=== PATIENT | male | born 1965 | race Caucasian/White ===

== ENCOUNTER 2017-11-10 14:47 | Emergency (ER) | payer MEDICARE, MEDICAID, SELFPAY ==
[2017-11-10 14:48] VITALS: BP 128/88; PULSE 71; RESP 18; TEMP 36.8; O2SAT 95; BMI 34.9
--- NOTE | 2017-11-10 14:55 | RAD_ITS ---
STUDY: X-RAY - LEFT KNEE REASON FOR EXAM: Male, 52 years old. Pain following a fall. TECHNIQUE: 4 view(s) of the knee. COMPARISON: None. FINDINGS: Normal visualized distal femur. Normal visualized proximal tibia and fibula. Normal proximal tibiofibular articulation. Normal medial femorotibial compartment. Normal lateral femorotibial compartment. Normal patellofemoral articulation. The soft tissue structures are unremarkable. RAD/Knee 4 or More Views IMPRESSION: Normal x-ray examination of the knee. Electronically Signed: Ronnell Garcia MD at 15:41 EDT Tel [phone], Service support ,
--- NOTE | 2017-11-10 16:13 | ED.VISSUMM ---
- ER Visit Summary Date of Service: 11/10/17 Chief Complaint: Knee injury History of Present Illness: The patient is a 52 M who states that last night he slipped on some cardboard causing a twisting of the left knee and doing a pseudo-split. Notes painful range of motion and painful walking. He has a walker at home. Prior knee injury Physical Examination: Afebrile vital signs are stable The left knee is diffusely tender to palpation. There is no swelling. There is no effusion. Extensor mechanism is intact. There is no pain on ligamentous stressing and no laxity when compared to the right. Test Results: Knee x-rays done through protocol were negative for fracture Emergency Department Course and Treatment: The patient will use an Dany wrap Motrin and ice. He will use the walker for support. Follow-up with his doctor if not improved in 10-14 days. I informed him that bone ward he appears stable ligaments are probably strained but I do not appreciate a tear. If he is not improving he will need further evaluation for possible ligamentous/meniscus tear. Impression: 1. Left knee sprain This note was generated with [employer] dictation software. It may contain incorrect words, spelling, and punctuation that were not noted in review of the chart prior to signing ED Disposition - Plan for ED Patient: Disposition: Home or Assisted Living Chief Complaint: Lower Extremity Injury Instructions: ED Sprain Knee Prescriptions: Ibuprofen [Motrin] 800 mg PO TID PRN PRN #20 tab PRN Reason: Pain Referrals: Sai Cobian MD [Primary Care Provider] - 10-14 Days if not better
--- NOTE | 2017-11-10 16:16 | ED.DCSUM_ITS ---
- ER Visit Summary Date of Service: 11/10/17 Chief Complaint: Knee injury History of Present Illness: The patient is a 52 M who states that last night he slipped on some cardboard causing a twisting of the left knee and doing a pseudo -split. Notes painful range of motion and painful walking. He has a walker at home. Prior knee injury Physical Examination: Afebrile vital signs are stable The left knee is diffusely tender to palpation. There is no swelling. There is no effusion. Extensor mechanism is intact. There is no pain on ligamentous stressing and no laxity when compared to the right. Test Results: Knee x-rays done through protocol were negative for fracture Emergency Department Course and Treatment: The patient will use an Dany wrap Motrin and ice. He will use the walker for support. Follow-up with his doctor if not improved in 10-14 days. I informed him that bone ward he appears stable ligaments are probably strained but I do not appreciate a tear. If he is not improving he will need further evaluation for possible ligamentous/meniscus tear. Impression: 1. Left knee sprain This note was generated with [employer] dictation software. It may contain incorrect words, spelling, and punctuation that were not noted in review of the chart prior to signing ED Disposition - Plan for ED Patient: Disposition: Home or Assisted Living Chief Complaint: Lower Extremity Injury Instructions: ED Sprain Knee Prescriptions: Ibuprofen [Motrin] 800 mg PO TID PRN PRN #20 tab PRN Reason: Pain Referrals: Sai Cobian MD [Primary Care Provider] - 10-14 Days if not better
--- NOTE | 2017-11-11 01:11 | ED.RN ---
see patient down time charting from [phone]
== END 2017-11-10 18:00 | disposition home or self-care (01) ==
LOC: ED 16:43
PROVIDERS: Emergency Provider Emergency Medicine; Family Provider Family Medicine; PCP Family Medicine
DX: S83.92XA Sprain of unspecified site of left knee, initial encounter (principal); W01.0XXA Fall on same level from slipping, tripping and stumbling without subsequent striking against object, initial encounter; Y93.9 Activity, unspecified; Y92.89 Other specified places as the place of occurrence of the external cause; Y99.9 Unspecified external cause status; K21.9 Gastro-esophageal reflux disease without esophagitis
CPT/HCPCS: 73564; 99283

== ENCOUNTER 2017-11-20 14:37 | Emergency (ER) | payer MEDICARE, SELFPAY ==
[2017-11-20 14:38] VITALS: BP 134/100; PULSE 79; RESP 18; TEMP 36.9; O2SAT 95; BMI 34.9
--- NOTE | 2017-11-20 15:17 | MRI_ITS ---
STUDY: MRI LUMBAR SPINE WITHOUT CONTRAST REASON FOR EXAM: Male, 52 years old. X5 days TECHNIQUE: Standardized fat and water weighted pulse sequences were obtained in the sagittal and axial planes. COMPARISON: None FINDINGS: T1 and T2 lengthening anterior inferior corner of L2 and L3 vertebral bodies. T12-L1: Normal endplates. Normal disc height, hydration and morphology. Normal bilateral facet joints. Normal central canal and bilateral lateral recesses. Normal bilateral intervertebral neural foramina. Normal lumbar lordosis. There is no substantial scoliosis. Normal conus medullaris that terminates at the L1 level. L1-2: Normal endplates. Normal disc height, hydration and morphology. Normal bilateral facet joints. Normal central canal and bilateral lateral recesses. Normal bilateral intervertebral neural foramina. L2-3: Moderate circumferential disc marginal osteophyte causing moderate neural foraminal narrowing bilaterally. Central canal patent. L3-4: Moderate narrowing of the neural foramina bilaterally, left greater than right due to a circumferential disc marginal osteophyte and possible ossification of the posterior longitudinal ligament. L4-5: Moderate narrowing of the neural foramina bilaterally due to Moderate broad-based posterior disc marginal osteophyte and possible ossification of posterior longitudinal ligament. Posterior epidural lipomatosis. Moderate concentric trefoil type narrowing of the thecal sac. L5-S1: Normal endplates. Normal disc height, hydration and morphology. Normal bilateral facet joints. Normal central canal and bilateral lateral recesses. Normal bilateral intervertebral neural foramina. There appears to be sacralization of L5. Normal visualized sacral ala. Normal visualized paraspinous soft tissue structures. IMPRESSION: Possible transitional vertebrae. Nomenclature is for the purposes of this report only and should be confirmed with complete thoracolumbar spine films prior to any surgical intervention. Probable reactive spondylosis or bone bruise L2 and L3 vertebral bodies. Multilevel central and lateral spinal stenosis and multilevel broad-based disc protrusion. Possible ossification posterior longitudinal ligament. Electronically Signed: Sanjay Berman MD at 18:51 EDT , Service support , MRI/Spine Lumbar (Routine)
[2017-11-20] MEDS: Ketorolac 15 MG/ML Vial IV (16:05)
[2017-11-20] MEDS: proMETHazine 25 MG/ML Syringe 6.25 MG IV (16:05)
[2017-11-20] MEDS: HYDROmorphone 1 MG/ML Syringe IV (16:05)
[2017-11-20 16:11] VITALS: BP 134/85; PULSE 70; RESP 18; O2SAT 96
[2017-11-20 16:29] LABS: Absolute Lymphocyte Count 1.96 X10^3/ul (0.83-4.51); Absolute Neutrophil Count 6.2 X10^3/uL (2.0-7.7); Basophil# 0.02 X10^3/uL; Basophil% 0.2 % (0-1); Eosinophil# 0.14 X10^3/uL; Eosinophils% 1.6 % (0-5); Hematocrit 45.7 % (40-54); Hemoglobin 15.1 g/dl (13.0-16.5); Lymphocyte # 1.96 X10^3/ul (4.0); Lymphocyte % 21.7 % (19-41); Mean Corpuscular Hgb 31.8 pg (27.0-32.0); Mean Corpuscular Volume 96.2 fL (80-94); Mean Platelet Vol. 10.9 fl (6.2-12.0); Monocyte# 0.69 X10^3/uL; Monocyte% 7.6 % (0-10); Neutrophil # 6.18 X10^3/uL (2.7-7.7); Neutrophil % 68.5 % (47-70); Platelet Count 233 K/mm3 (150-450); RBC Distribution Width CV 13.3 % (11.6-14.6); RBC Distribution Width SD 47.1 fl (35.1-43.9); Red Blood Count 4.75 M/mm3 (4.6-6.2)
[2017-11-20 16:30] LABS: Anion Gap 5 (5-15); BUN 9 mg/dL (7-18); BUN/Creat Ratio 8.5 RATIO (10-20); Chloride 105 mmol/L (98-107); Creatinine, Serum 1.06 mg/dL (0.70-1.30); EST Glomerular Filtration Rate 79 mL/min (>60); Est Glom Filt Rate - Afr Amer 95 mL/min (>60); Estimated Creatinine Clearance 72.52 ml/min; Glucose 93 mg/dL (74-106); Potassium 4.5 mmol/L (3.5-5.1); Sodium Level 137 mmol/L (136-145)
[2017-11-20 16:31] LABS: POSITIVE COUNT NO; POSITIVE DIFFERENTIAL NO; POSITIVE MORPHOLOGY NO
--- NOTE | 2017-11-20 17:05 | ED.VISSUMM ---
- ER Visit Summary Date of Service: 11/20/17 Chief Complaint: [Back pain] History of Present Illness: The patient is a 52 M [presents to the emergency department complaint of low back pain that started 4 days ago. Patient states that he was moving some boxes and doing cleaning where he was bending over quite a bit. Patient denies any falls or direct trauma. Patient now with severe low back pain radiating into his right leg into the left anterior thigh. Patient has never had discomfort like this before. Patient denies any loss of bowel or bladder function. Complains of pain in the legs but no significant weakness. Patient does not have history of chronic back pain. Patient denies urinary symptoms. He denies fever. He denies any illicit drug use.] Physical Examination: [HEENT-PERRLA, EOMI. Cranial nerves II through XII grossly intact. TMs clear. Mucous membranes moist. No adenopathy. Cardiovascular-regular rate and rhythm without murmur or ectopy Lungs-clear to auscultation, chest wall stable without crepitus or subcu emphysema Abdomen-normoactive bowel sounds, soft, nontender, no rebound or rigidity, no peritoneal signs. Back exam-patient has diffuse tenderness over the lumbar spine and paraspinal musculature. Patient required significant assistance to even sit up in bed. Deep tendon reflexes are plus 1 out of 4 bilaterally at the patella and Achilles. Patient has normal 5 extension. Patient does have a positive straight leg raise on the left with pain at 20?. Extremities-intact ?4, normal range of motion, normal pulses, atraumatic] Test Results: [CBC with differential obtained was normal. Chemistries were normal. MRI of the lumbar spine ordered and pending] Emergency Department Course and Treatment: [Patient was medicated with Dilaudid, Toradol, and Zofran.] Treatment Plan: [Pending MRI results and final disposition as patient care turned over to evening physician awaiting MRI results.] Disposition: [Pending] Impression: [Back pain] This note was generated with [employer] dictation software. It may contain incorrect words, spelling, and punctuation that were not noted in review of the chart prior to signing ED Disposition - Plan for ED Patient: Chief Complaint: Back Referrals: Sai Cobian MD [Primary Care Provider] -
--- NOTE | 2017-11-20 19:34 | ED.VISSUMM ---
- ER Visit Summary Date of Service: 11/20/17 Chief Complaint: [] History of Present Illness: The patient is a 52 M [] Physical Examination: [] Test Results: [] Emergency Department Course and Treatment: [] Treatment Plan: [] Disposition: [] Impression: [] This note was generated with [employer] dictation software. It may contain incorrect words, spelling, and punctuation that were not noted in review of the chart prior to signing ED Disposition - Plan for ED Patient: Disposition: Home or Assisted Living Chief Complaint: Back Diagnosis: Spinal stenosis Instructions: ED Exercises Lumbar Muscles Prescriptions: Oxycodone HCl/Acetaminophen [Percocet 5/325] 1 tab PO Q6H PRN PRN 3 Days #12 tab PRN Reason: Pain Referrals: Sai Cobian MD [Primary Care Provider] - 3-5 Days
[2017-11-20 19:55] VITALS: BP 132/82; PULSE 80; RESP 18; O2SAT 100
== END 2017-11-20 19:56 | disposition home or self-care (01) ==
PROVIDERS: Emergency Medicine; Emergency Provider Emergency Medicine; Family Provider Family Medicine; PCP Family Medicine
DX: M48.00 Spinal stenosis, site unspecified (principal); M54.9 Dorsalgia, unspecified; E03.9 Hypothyroidism, unspecified; Z72.0 Tobacco use; F32.9 Major depressive disorder, single episode, unspecified; F41.9 Anxiety disorder, unspecified
CPT/HCPCS: 72148; 80048; 85025; 96374; 96375; 99283

== ENCOUNTER 2017-11-21 23:05 | Inpatient (IN) | payer MEDICARE, MEDICAID, SELFPAY ==
[2017-11-21 23:06] VITALS: BP 153/97; PULSE 88; RESP 19; TEMP 37.1; O2SAT 97; BMI 34.9
--- NOTE | 2017-11-21 23:21 | ED.RN ---
PT REPORTED HE FEELS THE URGE TO URINATE AND WHEN AMBULATING TO BATHROOM, PT BECOMES INCONTINENT.
[2017-11-22] VITALS (7 sets, daily range): BP systolic 121–138; BP diastolic 66–87; PULSE 59–81; RESP 14–28; TEMP 36.6–37.2; O2SAT 95–98; BMI 35.8
[2017-11-22] MEDS: morphine 8 MG/ML Syringe IM (00:06)
--- NOTE | 2017-11-22 00:40 | ED.VISSUMM ---
- ER Visit Summary Date of Service: 11/22/17 Chief Complaint: Back pain History of Present Illness: The patient is a 52 M presenting for evaluation secondary to back pain. Patient does have a prior history of back pain, but states that over the course of the last 6 days he has had significant lower back pain. Patient states that it was associated potentially with lifting at work, and also states that he had a leg twisting injury and fall a couple of weeks ago. Patient states that the pain is in his lower back and now radiates down both of his legs. He states that it goes down the anterior portion of the legs to approximately the level of the knee. He states that he now is having significant difficulty with even ambulation. Patient states that he has been having both urinary and fecal urgency, and occasionally when he is trying to get to the bathroom he loses control mildly of his bladder. He denies that he has been having any sort of fevers or weight loss or night sweats. He denies any injection drug use. Patient was seen in this emergency department yesterday, had an MRI of his back that showed central spinal stenosis, he was treated with pain medication and felt better and was discharged with a course of Percocet. Patient states that today however he has had episodes where he was unable to even get up off of the toilet. He lives by himself with his son who is about to leave for the [employer] for a week, the patient states that he feels he will be unable to care for himself. Physical Examination: Vitals: Within normal limits General: Well-nourished well-developed no acute distress Head: Normocephalic atraumatic ENT: Moist mucous membranes Neck: Supple no JVD Cardiovascular: Heart regular rate and rhythm no murmurs Respiratory: Respirations nondistressed, lung sounds clear to auscultation bilaterally Abdominal: Soft, nontender, nondistended, normal bowel sounds, no evidence of abdominal masses or pulsatile mass Back: Normal to inspection, both midline and paraspinal tenderness to palpation in the back, straight leg raise is positive at 15? on the left Extremities: Nontender, nonedematous, 2+ radial and PT pulses bilaterally symmetric Skin: Normal color no rash Neuro: 5/5 strength hip flexion, knee flexion, knee extension, dorsiflexion, plantarflexion, EHL. Sensation intact over all dermatomes of the lower extremities bilaterally, 2+ patellar and Achilles reflexes bilaterally symmetric, negative clonus bilaterally, 1+ Achilles reflexes bilaterally Test Results: MRI was reviewed from yesterday and shows central spinal stenosis Emergency Department Course and Treatment: Patient presented secondary to intractable back pain. He was given morphine in the emergency department. I reviewed the patient's records and his MRI, the patient at this point has failed outpatient treatment. He is nonambulatory, and will not have any help at home. He does have central stenosis which can be contributing to his discomfort. I believe he requires admission for rehab potential placement. Patient was consenting to this. Patient will be admitted under the hospitalist. Disposition: Admission Impression: 1. Intractable back pain 2. Spinal stenosis 3. Failed outpatient treatment 4. Declining functional status This note was generated with [email or web address] dictation software. It may contain incorrect words, spelling, and punctuation that were not noted in review of the chart prior to signing ED Disposition - Plan for ED Patient: Chief Complaint: Back Referrals: Sai Cobian MD [Primary Care Provider] -
--- NOTE | 2017-11-22 00:44 | ED.DCSUM_ITS ---
- ER Visit Summary Date of Service: 11/22/17 Chief Complaint: Back pain History of Present Illness: The patient is a 52 M presenting for evaluation secondary to back pain. Patient does have a prior history of back pain, but states that over the course of the last 6 days he has had significant lower back pain. Patient states that it was associated potentially with lifting at work, and also states that he had a leg twisting injury and fall a couple of weeks ago. Patient states that the pain is in his lower back and now radiates down both of his legs. He states that it goes down the anterior portion of the legs to approximately the level of the knee. He states that he now is having significant difficulty with even ambulation. Patient states that he has been having both urinary and fecal urgency, and occasionally when he is trying to get to the bathroom he loses control mildly of his bladder. He denies that he has been having any sort of fevers or weight loss or night sweats. He denies any injection drug use. Patient was seen in this emergency department yesterday , had an MRI of his back that showed central spinal stenosis, he was treated with pain medication and felt better and was discharged with a course of Percocet. Patient states that today however he has had episodes where he was unable to even get up off of the toilet. He lives by himself with his son who is about to leave for the [employer] for a week, the patient states that he feels he will be unable to care for himself. Physical Examination: Vitals: Within normal limits General: Well-nourished well-developed no acute distress Head: Normocephalic atraumatic ENT: Moist mucous membranes Neck: Supple no JVD Cardiovascular: Heart regular rate and rhythm no murmurs Respiratory: Respirations nondistressed, lung sounds clear to auscultation bilaterally Abdominal: Soft, nontender, nondistended, normal bowel sounds, no evidence of abdominal masses or pulsatile mass Back: Normal to inspection, both midline and paraspinal tenderness to palpation in the back, straight leg raise is positive at 15? on the left Extremities: Nontender, nonedematous, 2+ radial and PT pulses bilaterally symmetric Skin: Normal color no rash Neuro: 5/5 strength hip flexion, knee flexion, knee extension, dorsiflexion, plantarflexion, EHL. Sensation intact over all dermatomes of the lower extremities bilaterally, 2+ patellar and Achilles reflexes bilaterally symmetric , negative clonus bilaterally, 1+ Achilles reflexes bilaterally Test Results: MRI was reviewed from yesterday and shows central spinal stenosis Emergency Department Course and Treatment: Patient presented secondary to intractable back pain. He was given morphine in the emergency department. I reviewed the patient's records and his MRI, the patient at this point has failed outpatient treatment. He is nonambulatory, and will not have any help at home. He does have central stenosis which can be contributing to his discomfort. I believe he requires admission for rehab potential placement. Patient was consenting to this. Patient will be admitted under the hospitalist. Disposition: Admission Impression: 1. Intractable back pain 2. Spinal stenosis 3. Failed outpatient treatment 4. Declining functional status This note was generated with [employer] dictation software. It may contain incorrect words, spelling, and punctuation that were not noted in review of the chart prior to signing ED Disposition - Plan for ED Patient: Chief Complaint: Back Referrals: Sai Cobian MD [Primary Care Provider] -
--- NOTE | 2017-11-22 01:50 | HP.PCM_ITS ---
Problem List (1) Multilevel spinal canal stenosis Status: Acute (2) Intractable low back pain Status: Acute (3) Hypothyroidism Status: Chronic (4) Anxiety Status: Chronic (5) Depression Status: Chronic History of Present Illness Date of Admission: 11/22/17 Chief Complaint: Low back pain. The patient is a 52 year old M with past medical history as mentioned above presented to the medicine because of low back pain. His back pain started around 1 week ago after he started backing his stuff at home for moving. The pain is in the lower back, in the center of the back and goes on both sides, spasm-like pain, 10 out of 10 in severity, radiates down to both thighs, aggravated by movement as well as taking a deep breath, somewhat relieved when he stays still and without other associated symptoms. He mentioned that the pain has been constant and has been worsening progressively over the last 3-4 days. He denied focal leg weakness, numbness or tingling. He denied bowel or bladder incontinence. He denied fall or trauma. Yesterday, he came to the emergency room for evaluation, MRI performed and that revealed moderate narrowing of the neural foramina bilaterally at L3-L4 and L4-L5 as well as probable reactive spondylosis or bone bruises on L2 on L3 to vertebral bodies. He was discharged home on Percocet but he came back last night because of intractable pain, difficulty ambulating and he was not able even to move. In the emergency room, his vital signs were stable. His routine blood work was performed yesterday and was unremarkable. MRI lumbar spine reviewed as below. He is being admitted for intractable low back pain due to multilevel spinal canal stenosis and reactive spondylosis with debility and functional decline. Past Medical History Past Medical History (Chronic Problems): Chronic Problems Hypothyroidism (Chronic) Anxiety (Chronic) Depression (Chronic) Allergies No Known Allergies Allergy (Verified 11/21/17 23:06) Home Medications: Ambulatory Orders Medication Instructions Recorded Omeprazole [Prilosec] 20 mg PO DAILY 03/29/16 Citalopram [Celexa] 40 mg PO DAILY 05/21/16 Levothyroxine [Synthroid] 175 mcg PO DAILY 05/21/16 Lorazepam [Ativan] 1 mg PO TID PRN PRN 05/21/16 Oxycodone HCl/Acetaminophen 1 tab PO Q6H PRN PRN 3 Days #12 tab 11/20/17 [Percocet 5/325] Surgical History: tonsillectomy Psychiatric History: Anxiety, Depression Smoking Status: Current every day smoker Alcohol: Occasional Drugs: None - *Family History Maternal History Items: No pertinent history Paternal History Items: No pertinent history Review of Systems Constitutional: Denies: Anorexia, Chills, Fever, Weakness Eyes: Denies: Blurred vision, Double vision, Drainage, Redness HEENT: Denies: Difficulty Hearing, Ear Pain, Eye Pain, Nasal Congestion, Sore Throat Cardiovascular: Denies: Chest Pain, Chest Pressure, Chest Tightness, Light Headedness, Palpitations, Syncope Respiratory: Denies: Cough, Hemoptysis, Pleuritic Pain, Shortness of Breath, Sputum production, Wheezing Gastrointestinal: Denies: Abdominal Pain, Constipation, Diarrhea, Nausea, Vomiting Genitourinary: Denies: Dysuria, Frequency, Hematuria Musculoskeletal: Reports: Back Pain. Denies: Arm Pain, Foot Pain, Hand Pain Skin: Denies: Dryness, Rash Neurological: Denies: Balance problems, Double vision, Change in Speech, Slurred speech, Headaches, Incoordination, Numbness Psychiatric: Reports: Anxiety, Depression Endocrine: Denies: Change in Body Habitus, Polydipsia VTE Information - Inpt Only VTE Present on Admission: No VTE Mechan Device Prophylaxis: None VTE Pharm Prophylaxis ordered?: Yes Patient Problems: Active and Suspected Problems Multilevel spinal canal stenosis (Acute) Intractable low back pain (Acute) - Physical Exam General: Alert, Oriented x3, Cooperative, No apparent distress HEENT: Atraumatic, PERRLA, EOMI Oral: Moist Mucosa, No Gingival or Mucosal Lesions/ Ulcerations Neck: Supple, No JVD, Negative Carotid Bruits, Trachea Midline, Thyroid Normal Size and Texture Lungs: Clear to auscultation, Normal air movement, No rhonchi, No wheeze, No rales Cardiovascular: Regular rate, Regular Rhythm, Normal S1, Normal S2, No murmurs Abdomen: Bowel Sounds Present, Soft, Non Tender, Non-Distended, No Hepato- splenomegaly, Obese Extremities: No clubbing, No cyanosis, No edema Skin: No rashes, No breakdown Lymphatic: No Cervical, Supraclavicular, or Inguinal Adenopathy Neurological: Cranial nerves II-XII grossly intact, Motor Exam 5/5 strength throughout, Sensory exam intact to light touch and pain Psych/Mental Status: Normal Affect, Appropriate, Alert and oriented to time, place, person, mood and affect Vital Signs Temp Pulse Resp BP Pulse Ox 98.8 F 81 16 138/87 H 96 11/21/17 23:06 11/22/17 00:31 11/22/17 00:31 11/22/17 00:31 11/22/17 00:31 Oxygen Delivery Method Room Air Weight: 210 lb Body Mass Index (BMI) 34.9 MRI of the lumbar spine: This was done on November 20, 2017. IMPRESSION: Possible transitional vertebrae. Nomenclature is for the purposes of this report only and should be confirmed with complete thoracolumbar spine films prior to any surgical intervention. Probable reactive spondylosis or bone bruise L2 and L3 vertebral bodies. Multilevel central and lateral spinal stenosis and multilevel broad-based disc protrusion. Possible ossification posterior longitudinal ligament. Assessment/Plan Active and Suspected Problems Multilevel spinal canal stenosis (Acute) Intractable low back pain (Acute) This is a 52 years old male patient presented to the emergency room for the second time after he came in yesterday for intractable low back pain, found to have multilevel spinal canal stenosis as well as degenerative disease and reactive spondylosis with failure of outpatient therapy and he is being admitted for pain control and physical therapy. #1 acute intractable low back pain: MRI findings as noted above. Patient was discharged from the ER yesterday and he came back last night because of intractable low back pain and difficulty ambulating. His routine blood work from November 21, 2079 reviewed and was unremarkable. He has no evidence of focal deficit on lower extremities. [facility], ambulate as tolerated, IV hydromorphone as needed for pain, Flexeril 3 times daily, OxyIR as needed for pain, Tylenol as needed, IV Decadron, PT OT evaluation and treatment. #2 physical debility/functional decline: Patient mentioned that he is not able to ambulate, having difficulties even to stand up from toilet. He lives alone. Plan for PT OT evaluation and treatment, patient may need placement to nursing home facility. #3 hypothyroidism: Continue levothyroxine. #4 anxiety/depression: Continue Celexa and Ativan. #5 GERD: Continue PPI. #6 DVT prophylaxis: Subcu Lovenox. This note was generated with Dragon dictation software. It may contain incorrect words, spelling, and punctuation that were not noted in checking the note before signing. Code Visit Inpatient E&M: 80848 Init Hosp L3
[2017-11-22] MEDS: oxyCODONE 5 MG Tablet PO ×4 (03:10→22:39)
[2017-11-22] MEDS: 0.9% NaCl Peripheral Flush Adult/Peds IV ×2 (03:47→05:11)
[2017-11-22] MEDS: Enoxaparin 40 MG/0.4 ML Syringe SC (05:10)
[2017-11-22] MEDS: Levothyroxine 175 MCG Tablet PO (05:10)
[2017-11-22 06:01] LABS: Absolute Lymphocyte Count 1.26 X10^3/ul (0.83-4.51); Absolute Neutrophil Count 8.6 X10^3/uL (2.0-7.7); Basophil# 0.02 X10^3/uL; Basophil% 0.2 % (0-1); Eosinophil# 0.08 X10^3/uL; Eosinophils% 0.7 % (0-5); Hematocrit 44.9 % (40-54); Hemoglobin 14.7 g/dl (13.0-16.5); Lymphocyte # 1.26 X10^3/ul (4.0); Lymphocyte % 11.7 % (19-41); Mean Corp Hgb Conc 32.7 g/gl (32-36); Mean Corpuscular Hgb 31.5 pg (27.0-32.0); Mean Corpuscular Volume 96.4 fL (80-94); Mean Platelet Vol. 10.8 fl (6.2-12.0); Monocyte# 0.76 X10^3/uL; Monocyte% 7.1 % (0-10); Neutrophil # 8.59 X10^3/uL (2.7-7.7); Neutrophil % 80.1 % (47-70); Platelet Count 222 K/mm3 (150-450); RBC Distribution Width CV 13.4 % (11.6-14.6); RBC Distribution Width SD 46.7 fl (35.1-43.9); Red Blood Count 4.66 M/mm3 (4.6-6.2); White Blood Count 10.7 K/mm3 (4.4-11.0)
[2017-11-22 06:10] LABS: POSITIVE COUNT NO; POSITIVE DIFFERENTIAL NO; POSITIVE MORPHOLOGY NO
[2017-11-22 06:30] LABS: Anion Gap 7 (5-15); BUN 12 mg/dL (7-18); BUN/Creat Ratio 10.2 RATIO (10-20); Calcium,Total 8.9 mg/dL (8.5-10.1); Chloride 100 mmol/L (98-107); Creatinine, Serum 1.18 mg/dL (0.70-1.30); EST Glomerular Filtration Rate 69 mL/min (>60); Est Glom Filt Rate - Afr Amer 84 mL/min (>60); Estimated Creatinine Clearance 65.15 ml/min; Glucose 100 mg/dL (74-106); Potassium 4.1 mmol/L (3.5-5.1); Sodium Level 135 mmol/L (136-145)
[2017-11-22] MEDS: Citalopram 40 MG TABLET PO (09:32)
[2017-11-22] MEDS: Senna Tablet 1 TABLET PO ×2 (09:32→21:00)
[2017-11-22] MEDS: Pantoprazole Sodium 20 MG Tablet PO (09:32)
--- NOTE | 2017-11-22 10:14 | PCM.PN.HOSP ---
Patient Problems: Active and Suspected Problems Multilevel spinal canal stenosis (Acute) Intractable low back pain (Acute) Subjective: still with back pain. Vitals/I&O's: Vital Signs Temp Pulse Resp BP Pulse Ox 36.7 C 62 16 121/73 H 98 11/22/17 08:30 11/22/17 08:30 11/22/17 08:30 11/22/17 08:30 11/22/17 08:30 Oxygen Delivery Method Room Air Weight: 97.6 kg Body Mass Index (BMI) 35.8 Intake and Output for Last 24 Hours 11/20/17 11/21/17 11/22/17 23:59 23:59 23:59 Intake Total 400 / 400 Balance 400 / 400 General: Alert, No apparent distress HEENT: Atraumatic, Normocephalic Musculoskeletal: - - reproducible lower lumbar paraspinal muscle tenderness. no vertebral point tenderness. Psych/Mental Status: Flat Affect Laboratory Results 11/22/17 05:30: WBC 10.7, RBC 4.66, Hgb 14.7, Hct 44.9, MCV 96.4 H, MCH 31.5, MCHC 32.7, RDW 13.4, RDW Differential 46.7 H, Plt Count 222, MPV 10.8, Immature Gran % (Auto) 0.200, Neut % (Auto) 80.1 H, Lymph % (Auto) 11.7 L, [place] % (Auto) 7.1, Eos % (Auto) 0.7, Baso % (Auto) 0.2, Absolute Neuts (auto) 8.6 H, Absolute Lymphs (auto) 1.26, Total Counted Not Reportable 11/22/17 05:30: Sodium 135 L, Potassium 4.1, Chloride 100, Carbon Dioxide 28.0, Anion Gap 7, BUN 12, Creatinine 1.18, Estim Creat Clear Calc 65.15, Est GFR (MDRD) Af Amer 84, Est GFR (MDRD) Non-Af 69, BUN/Creatinine Ratio 10.2, Glucose 100, Calcium 8.9 Current Medications Acetaminophen (Tylenol) 650 mg PO Q6H PRN PRN PRN Reason: Fever, headache, pain Citalopram Hydrobromide (Celexa) 40 mg PO DAILY [facility] Last Admin: 11/22/17 09:32 Dose: 40 mg Cyclobenzaprine HCl (Flexeril) 10 mg PO TID [facility] Last Admin: 11/22/17 03:48 Dose: 10 mg Dexamethasone Sodium Phosphate (Decadron) 4 mg IV Q8 [facility] Stop: 11/23/17 14:01 Last Admin: 11/22/17 03:47 Dose: 4 mg Enoxaparin Sodium (Lovenox) 40 mg SC DAILY@0600 [facility] Last Admin: 11/22/17 05:10 Dose: 40 mg Levothyroxine Sodium (Synthroid) 175 mcg PO DAILY@0600 [facility] Last Admin: 11/22/17 05:10 Dose: 175 mcg Lorazepam (Ativan) 1 mg PO TID PRN PRN PRN Reason: ANXIETY Magnesium Hydroxide (Milk Of Magnesia) 30 ml PO DAILY PRN PRN PRN Reason: Constipation Ondansetron HCl (Zofran) 4 mg IV Q6H PRN PRN PRN Reason: NAUSEA/VOMITING Oxycodone HCl (Oxyir) 5 mg PO Q6H PRN PRN PRN Reason: SEVERE PAIN (6-10/10) Last Admin: 11/22/17 09:32 Dose: 5 mg Pantoprazole Sodium (Protonix) 20 mg PO DAILY [facility] Last Admin: 11/22/17 09:32 Dose: 20 mg Senna (Senokot) 1 tablet PO BID [facility] Last Admin: 11/22/17 09:32 Dose: 1 tablet Sodium Chloride () 5 - 30 ml IV UD PRN PRN Reason: SALINE FLUSH Last Admin: 11/22/17 05:11 Dose: 10 ml Medical Necessity - Tobacco Use Smoking Status: Current every day smoker Assessment/Plan Active and Suspected Problems Multilevel spinal canal stenosis (Acute) Intractable low back pain (Acute) 1. Back pain 2/2 lumbar paraspinal muscle strain/sprain pt has slipped earlier when he step on a piece of cardboard on a linoleum floor, then later, was doing some cleaning. Previous MRI showed spinal stenosis and disc bulge, but no cord contact. Therefore: does not require IV decadron minimize narcotics muscle relaxants, utilize non-narcotics pt concerned about taking care of himself. Will await PT/OT eval. Concern for lack of motivation. 2. Hypothyroidism, anxiety, depression, GERD: stable, but complicates overall picture 3. DVT proph: LMWH. Code Visit Procedures: Other Procedure - See Report - non-billable rounding.
--- NOTE | 2017-11-22 10:22 | PN_ITS ---
Patient Problems: Active and Suspected Problems Multilevel spinal canal stenosis (Acute) Intractable low back pain (Acute) Subjective: still with back pain. Vitals/I&O's: Vital Signs Temp Pulse Resp BP Pulse Ox 36.7 C 62 16 121/73 H 98 11/22/17 08:30 11/22/17 08:30 11/22/17 08:30 11/22/17 08:30 11/22/17 08:30 Oxygen Delivery Method Room Air Weight: 97.6 kg Body Mass Index (BMI) 35.8 Intake and Output for Last 24 Hours 11/20/17 11/21/17 11/22/17 23:59 23:59 23:59 Intake Total 400 / 400 Balance 400 / 400 General: Alert, No apparent distress HEENT: Atraumatic, Normocephalic Musculoskeletal: - - reproducible lower lumbar paraspinal muscle tenderness. no vertebral point tenderness. Psych/Mental Status: Flat Affect Laboratory Results 11/22/17 05:30: WBC 10.7, RBC 4.66, Hgb 14.7, Hct 44.9, MCV 96.4 H, MCH 31.5, MCHC 32.7, RDW 13.4, RDW Differential 46.7 H, Plt Count 222, MPV 10.8, Immature Gran % (Auto) 0.200, Neut % (Auto) 80.1 H, Lymph % (Auto) 11.7 L, Starke % (Auto) 7.1, Eos % (Auto) 0.7, Baso % (Auto) 0.2, Absolute Neuts (auto) 8.6 H, Absolute Lymphs (auto) 1.26, Total Counted Not Reportable 11/22/17 05:30: Sodium 135 L, Potassium 4.1, Chloride 100, Carbon Dioxide 28.0, Anion Gap 7, BUN 12, Creatinine 1.18, Estim Creat Clear Calc 65.15, Est GFR ( MDRD) Af Amer 84, Est GFR (MDRD) Non-Af 69, BUN/Creatinine Ratio 10.2, Glucose 100, Calcium 8.9 Current Medications Acetaminophen (Tylenol) 650 mg PO Q6H PRN PRN PRN Reason: Fever, headache, pain Citalopram Hydrobromide (Celexa) 40 mg PO DAILY [facility] Last Admin: 11/22/17 09:32 Dose: 40 mg Cyclobenzaprine HCl (Flexeril) 10 mg PO TID [facility] Last Admin: 11/22/17 03:48 Dose: 10 mg Dexamethasone Sodium Phosphate (Decadron) 4 mg IV Q8 [facility] Stop: 11/23/17 14:01 Last Admin: 11/22/17 03:47 Dose: 4 mg Enoxaparin Sodium (Lovenox) 40 mg SC DAILY@0600 [facility] Last Admin: 11/22/17 05:10 Dose: 40 mg Levothyroxine Sodium (Synthroid) 175 mcg PO DAILY@0600 [facility] Last Admin: 11/22/17 05:10 Dose: 175 mcg Lorazepam (Ativan) 1 mg PO TID PRN PRN PRN Reason: ANXIETY Magnesium Hydroxide (Milk Of Magnesia) 30 ml PO DAILY PRN PRN PRN Reason: Constipation Ondansetron HCl (Zofran) 4 mg IV Q6H PRN PRN PRN Reason: NAUSEA/VOMITING Oxycodone HCl (Oxyir) 5 mg PO Q6H PRN PRN PRN Reason: SEVERE PAIN (6-10/10) Last Admin: 11/22/17 09:32 Dose: 5 mg Pantoprazole Sodium (Protonix) 20 mg PO DAILY [facility] Last Admin: 11/22/17 09:32 Dose: 20 mg Senna (Senokot) 1 tablet PO BID [facility] Last Admin: 11/22/17 09:32 Dose: 1 tablet Sodium Chloride () 5 - 30 ml IV UD PRN PRN Reason: SALINE FLUSH Last Admin: 11/22/17 05:11 Dose: 10 ml Medical Necessity - Tobacco Use Smoking Status: Current every day smoker Assessment/Plan Active and Suspected Problems Multilevel spinal canal stenosis (Acute) Intractable low back pain (Acute) 1. Back pain * 2/2 lumbar paraspinal muscle strain/sprain * pt has slipped earlier when he step on a piece of cardboard on a linoleum floor, then later, was doing some cleaning. * Previous MRI showed spinal stenosis and disc bulge, but no cord contact. Therefore: does not require IV decadron * minimize narcotics * muscle relaxants, utilize non-narcotics * pt concerned about taking care of himself. Will await PT/OT eval. Concern for lack of motivation. 2. Hypothyroidism, anxiety, depression, GERD: stable, but complicates overall picture 3. DVT proph: LMWH. Code Visit Procedures: Other Procedure - See Report - non-billable rounding.
--- NOTE | 2017-11-22 12:24 | CASEMGMT ---
Social Work Assessment Referral Date: 11/22/2017 Date of Assessment: 11/22/2017 Reason for consult: Initial assessment, Possible SNF placement Informant: KIZZY SW in to meet with pt and to complete initial assessment. SW introduced self and role at [facility]. Pt alert and orientated x4. Pt states that he lives with his son in a one story home. Pt states that previously he was independent with ADLS. Pt states that he was able to ambulate at home. Pt states that he has family and friends that live close to him that are able to provide support for him when needed. Pt states that his PCP is Sai Cobian MD and that his pharmacy is currently [facility] but pt states that he is thinking about switching to [facility]. Pt states that his plan is to return home at discharge and states that he will be able to handle being at home and that he thinks he will be able to once again be independent at home. Pt denied additional needs or concerns at this time. Substance Abuse Hx: Pt denied abusing substances but states that he does occasionally drink alcohol and smoke cigarettes. Mental Health Hx: Pt states that he has anxiety and depression. Pt states that he currently takes Celexa and it is prescribed through his PCP. Pt states that he has been receiving counseling services on and off since his early 'a and has received services through [facility] but currently denies receiving services. Pt denies the need for counseling services at this time. He states that he feels like he is handling his anxiety and depression. SW encouraged pt to follow up with [facility] if he thinks that he needs it. Pt states understanding. Plan: Return home at discharge Federica Tomlin [employer], [employer]
[2017-11-22] MEDS: LORazepam 1 MG Tablet PO (14:00)
--- NOTE | 2017-11-22 14:31 | CASEMGMT ---
Social Work Note SW met with pt again to discuss discharge planning. PT evaluated pt earlier and pt ambulated 15 ft and PT is recommending care home facility/TCU and pt would benefit from further skilled therapy. Per pt he is receptive to going to TCU. SW asked pt for second and third choices regarding SNF placement and at this time pt doesn't have any other choices other than TCU. SW informed pt that this worker will place a call to TCU and see if they have beds available. SW states that if TCU doesn't have beds available or is unable to accept pt them this worker will provide pt a list of local SNF agencies that pt can look over. Pt states understanding. SW placed a call to Audrey in TCU and left a message. SW also placed a call to [facility] to see if TCU has any beds available. SW will wait for call back regarding TCU. Plan: TCU pending acceptance Federica Tomlin [employer] SCIENTIST, CRYPTOLOGIC LINGUIST
--- NOTE | 2017-11-22 15:52 | CASEMGMT ---
Addendum entered by Federica Tomlin 11/23/17 08:07: KIZZY received message from [facility] that she will review pt for possible TCU placement. Original Note: Social Work Note SW updated Dr. Choudhury that pt is interested in SNF placement and that this worker made referral to TCU per pt's request. SW also informed Dr. Choudhury that pt will need a three midnight stay. Plan: TCU pending acceptance Federica Tomlin MEDICATION NURSE, ACID SPLICER
[2017-11-23] VITALS (7 sets, daily range): BP systolic 111–138; BP diastolic 65–83; PULSE 60–79; RESP 15–18; TEMP 36.4–36.9; O2SAT 95–98
--- NOTE | 2017-11-23 02:47 | NURSING ---
Patient resting with eyes closed, no distress, CPAP on, will check VS when patient awake.
[2017-11-23] MEDS: Levothyroxine 175 MCG Tablet PO (05:12)
[2017-11-23] MEDS: Enoxaparin 40 MG/0.4 ML Syringe SC (05:12)
--- NOTE | 2017-11-23 09:47 | PCM.PN.HOSP ---
Patient Problems: Active and Suspected Problems Multilevel spinal canal stenosis (Acute) Intractable low back pain (Acute) Subjective: still with back pain. c/o numbness in UE (chronic) and was going to have a cervical MRI on 11/28 Vitals/I&O's: Vital Signs Temp Pulse Resp BP Pulse Ox 36.8 C 79 18 111/70 95 11/23/17 05:10 11/23/17 08:59 11/23/17 08:59 11/23/17 05:10 11/23/17 08:59 Oxygen Flow Rate (L/min) 2 Oxygen Delivery Method Room Air Weight: 97.6 kg Body Mass Index (BMI) 35.8 Intake and Output for Last 24 Hours 11/21/17 11/22/17 11/23/17 23:59 23:59 23:59 Intake Total 760 / 760 240 / 240 Balance 760 / 760 240 / 240 General: Alert, No apparent distress HEENT: Atraumatic, Normocephalic Abdomen: Soft, Obese Extremities: No edema, No Calf Tenderness Skin: No rashes, No breakdown Musculoskeletal: - - bilateral lumbar paraspinal muscle tenderness. Neurological: Neuro grossly intact, Sensory exam intact to light touch and pain Psych/Mental Status: Normal Affect, Appropriate Current Medications Acetaminophen (Tylenol) 650 mg PO Q6H PRN PRN PRN Reason: Fever, headache, pain Citalopram Hydrobromide (Celexa) 40 mg PO DAILY [facility] Last Admin: 11/22/17 09:32 Dose: 40 mg Cyclobenzaprine HCl (Flexeril) 10 mg PO TID [facility] Last Admin: 11/23/17 05:12 Dose: 10 mg Enoxaparin Sodium (Lovenox) 40 mg SC DAILY@0600 [facility] Last Admin: 11/23/17 05:12 Dose: 40 mg Ketorolac Tromethamine (Toradol) 10 mg PO Q6H PRN PRN PRN Reason: PAIN Stop: 11/27/17 10:23 Levothyroxine Sodium (Synthroid) 175 mcg PO DAILY@0600 [facility] Last Admin: 11/23/17 05:12 Dose: 175 mcg Lorazepam (Ativan) 1 mg PO TID PRN PRN PRN Reason: ANXIETY Last Admin: 11/22/17 14:00 Dose: 1 mg Magnesium Hydroxide (Milk Of Magnesia) 30 ml PO DAILY PRN PRN PRN Reason: Constipation Ondansetron HCl (Zofran) 4 mg IV Q6H PRN PRN PRN Reason: NAUSEA/VOMITING Oxycodone HCl (Oxyir) 5 mg PO Q6H PRN PRN PRN Reason: SEVERE PAIN (6-10/10) Last Admin: 11/22/17 22:39 Dose: 5 mg Pantoprazole Sodium (Protonix) 20 mg PO DAILY [facility] Last Admin: 11/22/17 09:32 Dose: 20 mg Senna (Senokot) 1 tablet PO BID [facility] Last Admin: 11/22/17 21:00 Dose: 1 tablet Sodium Chloride () 5 - 30 ml IV UD PRN PRN Reason: SALINE FLUSH Last Admin: 11/22/17 05:11 Dose: 10 ml Medical Necessity - Tobacco Use Smoking Status: Current every day smoker Assessment/Plan Active and Suspected Problems Multilevel spinal canal stenosis (Acute) Intractable low back pain (Acute) 1. Back pain 2/2 lumbar paraspinal muscle strain/sprain pt has slipped earlier when he step on a piece of cardboard on a linoleum floor, then later, was doing some cleaning. Previous MRI showed spinal stenosis and disc bulge, but no cord contact. Therefore: does not require IV decadron minimize narcotics muscle relaxants, utilize non-narcotics pt concerned about taking care of himself. Will await PT/OT eval. Concern for lack of motivation. 2. Hypothyroidism, anxiety, depression, GERD: stable, but complicates overall picture 3. UE paresthesia: not currently active was already being worked up as outpt with an MRI of Cspine ordered on 11/28. patient will need to have this done as outpt. 4. DVT proph: LMWH. 5. Disposition: to SNF after 3 midnights. Code Visit Inpatient E&M: 15576 Subs Hosp L2
--- NOTE | 2017-11-23 09:51 | PN_ITS ---
Patient Problems: Active and Suspected Problems Multilevel spinal canal stenosis (Acute) Intractable low back pain (Acute) Subjective: still with back pain. c/o numbness in UE (chronic) and was going to have a cervical MRI on 11/28 Vitals/I&O's: Vital Signs Temp Pulse Resp BP Pulse Ox 36.8 C 79 18 111/70 95 11/23/17 05:10 11/23/17 08:59 11/23/17 08:59 11/23/17 05:10 11/23/17 08:59 Oxygen Flow Rate (L/min) 2 Oxygen Delivery Method Room Air Weight: 97.6 kg Body Mass Index (BMI) 35.8 Intake and Output for Last 24 Hours 11/21/17 11/22/17 11/23/17 23:59 23:59 23:59 Intake Total 760 / 760 240 / 240 Balance 760 / 760 240 / 240 General: Alert, No apparent distress HEENT: Atraumatic, Normocephalic Abdomen: Soft, Obese Extremities: No edema, No Calf Tenderness Skin: No rashes, No breakdown Musculoskeletal: - - bilateral lumbar paraspinal muscle tenderness. Neurological: Neuro grossly intact, Sensory exam intact to light touch and pain Psych/Mental Status: Normal Affect, Appropriate Current Medications Acetaminophen (Tylenol) 650 mg PO Q6H PRN PRN PRN Reason: Fever, headache, pain Citalopram Hydrobromide (Celexa) 40 mg PO DAILY [facility] Last Admin: 11/22/17 09:32 Dose: 40 mg Cyclobenzaprine HCl (Flexeril) 10 mg PO TID [facility] Last Admin: 11/23/17 05:12 Dose: 10 mg Enoxaparin Sodium (Lovenox) 40 mg SC DAILY@0600 [facility] Last Admin: 11/23/17 05:12 Dose: 40 mg Ketorolac Tromethamine (Toradol) 10 mg PO Q6H PRN PRN PRN Reason: PAIN Stop: 11/27/17 10:23 Levothyroxine Sodium (Synthroid) 175 mcg PO DAILY@0600 [facility] Last Admin: 11/23/17 05:12 Dose: 175 mcg Lorazepam (Ativan) 1 mg PO TID PRN PRN PRN Reason: ANXIETY Last Admin: 11/22/17 14:00 Dose: 1 mg Magnesium Hydroxide (Milk Of Magnesia) 30 ml PO DAILY PRN PRN PRN Reason: Constipation Ondansetron HCl (Zofran) 4 mg IV Q6H PRN PRN PRN Reason: NAUSEA/VOMITING Oxycodone HCl (Oxyir) 5 mg PO Q6H PRN PRN PRN Reason: SEVERE PAIN (6-10/10) Last Admin: 11/22/17 22:39 Dose: 5 mg Pantoprazole Sodium (Protonix) 20 mg PO DAILY [facility] Last Admin: 11/22/17 09:32 Dose: 20 mg Senna (Senokot) 1 tablet PO BID [facility] Last Admin: 11/22/17 21:00 Dose: 1 tablet Sodium Chloride () 5 - 30 ml IV UD PRN PRN Reason: SALINE FLUSH Last Admin: 11/22/17 05:11 Dose: 10 ml Medical Necessity - Tobacco Use Smoking Status: Current every day smoker Assessment/Plan Active and Suspected Problems Multilevel spinal canal stenosis (Acute) Intractable low back pain (Acute) 1. Back pain * 2/2 lumbar paraspinal muscle strain/sprain * pt has slipped earlier when he step on a piece of cardboard on a linoleum floor, then later, was doing some cleaning. * Previous MRI showed spinal stenosis and disc bulge, but no cord contact. Therefore: does not require IV decadron * minimize narcotics * muscle relaxants, utilize non-narcotics * pt concerned about taking care of himself. Will await PT/OT eval. Concern for lack of motivation. 2. Hypothyroidism, anxiety, depression, GERD: stable, but complicates overall picture 3. UE paresthesia: * not currently active * was already being worked up as outpt with an MRI of Cspine ordered on 11/28. patient will need to have this done as outpt. 4. DVT proph: LMWH. 5. Disposition: to SNF after 3 midnights. Code Visit Inpatient E&M: 58036 Subs Hosp L2
[2017-11-23] MEDS: Pantoprazole Sodium 20 MG Tablet PO (09:57)
[2017-11-23] MEDS: Citalopram 40 MG TABLET PO (09:57)
[2017-11-23] MEDS: oxyCODONE 5 MG Tablet PO ×3 (09:57→23:21)
[2017-11-23] MEDS: Senna Tablet 1 TABLET PO ×2 (09:57→22:18)
--- NOTE | 2017-11-23 13:53 | CASEMGMT ---
Social Work Note KIZZY placed call to [facility] with TCU and left a message asking if [facility] is able to accept pt on [facility]CU. KIZZY informed [facility] that pt's third midnight stay will be Monday and pt will be able to discharge to TCU if accepted on Monday. SW waiting for call back. KIZZY received call from Catie with TCU stating that pt is accepted to TCU and can come on Monday. KIZZY updated pt of this. Plan: TCU Monday Federica BILLY, PATHOLOGY SPECIALIST
[2017-11-23] MEDS: LORazepam 1 MG Tablet PO (16:42)
[2017-11-24 03:35] VITALS: PULSE 78; RESP 18; O2SAT 97
--- NOTE | 2017-11-24 03:41 | CPS ---
Pt stated that he's not ready to go on CPAP yet.
[2017-11-24 03:43] VITALS: BP 114/63; PULSE 63; RESP 18; TEMP 36.6; O2SAT 96
[2017-11-24] MEDS: oxyCODONE 5 MG Tablet PO (05:58)
[2017-11-24] MEDS: Levothyroxine 175 MCG Tablet PO (05:58)
[2017-11-24] MEDS: Enoxaparin 40 MG/0.4 ML Syringe SC (05:59)
[2017-11-24 08:40] VITALS: PULSE 60
--- NOTE | 2017-11-24 08:41 | PCM.PN.HOSP ---
Patient Problems: Active and Suspected Problems Multilevel spinal canal stenosis (Acute) Intractable low back pain (Acute) Subjective: Still with back pain. Groggy this morning. Vitals/I&O's: Vital Signs Temp Pulse Resp BP Pulse Ox 36.6 C 63 18 114/63 96 11/24/17 03:43 11/24/17 03:43 11/24/17 03:43 11/24/17 03:43 11/24/17 03:43 Oxygen Flow Rate (L/min) 2 Oxygen Delivery Method Room Air Weight: 97.6 kg Body Mass Index (BMI) 35.8 Intake and Output for Last 24 Hours 11/22/17 11/23/17 11/24/17 23:59 23:59 23:59 Intake Total 760 / 760 690 / 690 200 / 200 Balance 760 / 760 690 / 690 200 / 200 General: Alert, No apparent distress HEENT: Atraumatic, Normocephalic Psych/Mental Status: Flat Affect Current Medications Acetaminophen (Tylenol) 650 mg PO Q6H PRN PRN PRN Reason: Fever, headache, pain Citalopram Hydrobromide (Celexa) 40 mg PO DAILY [facility] Last Admin: 11/23/17 09:57 Dose: 40 mg Cyclobenzaprine HCl (Flexeril) 10 mg PO TID [facility] Last Admin: 11/24/17 05:58 Dose: 10 mg Enoxaparin Sodium (Lovenox) 40 mg SC DAILY@0600 [facility] Last Admin: 11/24/17 05:59 Dose: 40 mg Ketorolac Tromethamine (Toradol) 10 mg PO Q6H PRN PRN PRN Reason: PAIN Stop: 11/27/17 10:23 Levothyroxine Sodium (Synthroid) 175 mcg PO DAILY@0600 [facility] Last Admin: 11/24/17 05:58 Dose: 175 mcg Lorazepam (Ativan) 1 mg PO TID PRN PRN PRN Reason: ANXIETY Last Admin: 11/23/17 16:42 Dose: 1 mg Magnesium Hydroxide (Milk Of Magnesia) 30 ml PO DAILY PRN PRN PRN Reason: Constipation Ondansetron HCl (Zofran) 4 mg IV Q6H PRN PRN PRN Reason: NAUSEA/VOMITING Oxycodone HCl (Oxyir) 5 mg PO Q6H PRN PRN PRN Reason: SEVERE PAIN (6-10/10) Last Admin: 11/24/17 05:58 Dose: 5 mg Pantoprazole Sodium (Protonix) 20 mg PO DAILY [facility] Last Admin: 11/23/17 09:57 Dose: 20 mg Senna (Senokot) 1 tablet PO BID [facility] Last Admin: 11/23/17 22:18 Dose: 1 tablet Sodium Chloride () 5 - 30 ml IV UD PRN PRN Reason: SALINE FLUSH Last Admin: 11/22/17 05:11 Dose: 10 ml Medical Necessity - Tobacco Use Smoking Status: Current every day smoker Assessment/Plan Active and Suspected Problems Multilevel spinal canal stenosis (Acute) Intractable low back pain (Acute) 1. Back pain 2/2 lumbar paraspinal muscle strain/sprain pt has slipped earlier when he step on a piece of cardboard on a linoleum floor, then later, was doing some cleaning. Previous MRI showed spinal stenosis and disc bulge, but no cord contact. Therefore: does not require IV decadron minimize narcotics muscle relaxants, utilize non-narcotics pt concerned about taking care of himself. Will await PT/OT eval. Concern for lack of motivation. Had a very mandy discussion with patient that I am concerned for his his desire for going to a half-way facility with back spasms and the fact that his sons get a believing that he is apprehensive about going home. This and the fact that he is only 52 years old. I told him that I am concerned about the medications holding him back and I am going to discontinuing sedating medications, including Flexeril and oxycodone. Utilizing nonnarcotics in regards to pain control but encourage the patient to try be more motivated in getting us help. Patient has about getting up and walking I told him that is fine but do that at home. I told him that we are strictly just waiting on him to go to a half-way facility here in the hospital. Patient seemed still focused on going to a half-way facility. Not sure if he clearly understands that he eventually will have to return home and maintain himself even with home care. 2. Hypothyroidism, anxiety, depression, GERD: stable, but complicates overall picture 3. UE paresthesia: not currently active was already being worked up as outpt with an MRI of Cspine ordered on 11/28. patient will need to have this done as outpt. 4. DVT proph: LMWH. 5. Disposition: to SNF after 3 midnights. Greater than 25 minutes of which greater than 50% of time was discussing his back pain in the change of medications that will be taking place and encouraging him to be more motivated in regards to getting better. Code Visit Inpatient E&M: 96738 Subs Hosp L2
--- NOTE | 2017-11-24 08:46 | PN_ITS ---
Patient Problems: Active and Suspected Problems Multilevel spinal canal stenosis (Acute) Intractable low back pain (Acute) Subjective: Still with back pain. Groggy this morning. Vitals/I&O's: Vital Signs Temp Pulse Resp BP Pulse Ox 36.6 C 63 18 114/63 96 11/24/17 03:43 11/24/17 03:43 11/24/17 03:43 11/24/17 03:43 11/24/17 03:43 Oxygen Flow Rate (L/min) 2 Oxygen Delivery Method Room Air Weight: 97.6 kg Body Mass Index (BMI) 35.8 Intake and Output for Last 24 Hours 11/22/17 11/23/17 11/24/17 23:59 23:59 23:59 Intake Total 760 / 760 690 / 690 200 / 200 Balance 760 / 760 690 / 690 200 / 200 General: Alert, No apparent distress HEENT: Atraumatic, Normocephalic Psych/Mental Status: Flat Affect Current Medications Acetaminophen (Tylenol) 650 mg PO Q6H PRN PRN PRN Reason: Fever, headache, pain Citalopram Hydrobromide (Celexa) 40 mg PO DAILY [facility] Last Admin: 11/23/17 09:57 Dose: 40 mg Cyclobenzaprine HCl (Flexeril) 10 mg PO TID [facility] Last Admin: 11/24/17 05:58 Dose: 10 mg Enoxaparin Sodium (Lovenox) 40 mg SC DAILY@0600 [facility] Last Admin: 11/24/17 05:59 Dose: 40 mg Ketorolac Tromethamine (Toradol) 10 mg PO Q6H PRN PRN PRN Reason: PAIN Stop: 11/27/17 10:23 Levothyroxine Sodium (Synthroid) 175 mcg PO DAILY@0600 [facility] Last Admin: 11/24/17 05:58 Dose: 175 mcg Lorazepam (Ativan) 1 mg PO TID PRN PRN PRN Reason: ANXIETY Last Admin: 11/23/17 16:42 Dose: 1 mg Magnesium Hydroxide (Milk Of Magnesia) 30 ml PO DAILY PRN PRN PRN Reason: Constipation Ondansetron HCl (Zofran) 4 mg IV Q6H PRN PRN PRN Reason: NAUSEA/VOMITING Oxycodone HCl (Oxyir) 5 mg PO Q6H PRN PRN PRN Reason: SEVERE PAIN (6-10/10) Last Admin: 11/24/17 05:58 Dose: 5 mg Pantoprazole Sodium (Protonix) 20 mg PO DAILY [facility] Last Admin: 11/23/17 09:57 Dose: 20 mg Senna (Senokot) 1 tablet PO BID [facility] Last Admin: 11/23/17 22:18 Dose: 1 tablet Sodium Chloride () 5 - 30 ml IV UD PRN PRN Reason: SALINE FLUSH Last Admin: 11/22/17 05:11 Dose: 10 ml Medical Necessity - Tobacco Use Smoking Status: Current every day smoker Assessment/Plan Active and Suspected Problems Multilevel spinal canal stenosis (Acute) Intractable low back pain (Acute) 1. Back pain * 2/2 lumbar paraspinal muscle strain/sprain * pt has slipped earlier when he step on a piece of cardboard on a linoleum floor, then later, was doing some cleaning. * Previous MRI showed spinal stenosis and disc bulge, but no cord contact. Therefore: does not require IV decadron * minimize narcotics * muscle relaxants, utilize non-narcotics * pt concerned about taking care of himself. Will await PT/OT eval. Concern for lack of motivation. * Had a very mandy discussion with patient that I am concerned for his his desire for going to a correction facility with back spasms and the fact that his sons get a believing that he is apprehensive about going home. This and the fact that he is only 52 years old. I told him that I am concerned about the medications holding him back and I am going to discontinuing sedating medications, including Flexeril and oxycodone. Utilizing nonnarcotics in regards to pain control but encourage the patient to try be more motivated in getting us help. Patient has about getting up and walking I told him that is fine but do that at home. I told him that we are strictly just waiting on him to go to a correction facility here in the hospital. Patient seemed still focused on going to a correction facility. Not sure if he clearly understands that he eventually will have to return home and maintain himself even with home care. 2. Hypothyroidism, anxiety, depression, GERD: stable, but complicates overall picture 3. UE paresthesia: * not currently active * was already being worked up as outpt with an MRI of Cspine ordered on 11/28. patient will need to have this done as outpt. 4. DVT proph: LMWH. 5. Disposition: to SNF after 3 midnights. Greater than 25 minutes of which greater than 50% of time was discussing his back pain in the change of medications that will be taking place and encouraging him to be more motivated in regards to getting better. Code Visit Inpatient E&M: 08710 Subs Hosp L2
[2017-11-24 09:51] VITALS: BP 124/71; PULSE 61; RESP 18; TEMP 36.6; O2SAT 94
[2017-11-24] MEDS: Citalopram 40 MG TABLET PO (10:00)
[2017-11-24] MEDS: Pantoprazole Sodium 20 MG Tablet PO (10:00)
[2017-11-24] MEDS: LORazepam 1 MG Tablet PO ×2 (10:00→21:05)
[2017-11-24] MEDS: Senna Tablet 1 TABLET PO ×2 (10:00→21:06)
[2017-11-24] MEDS: Lidocaine 5% Patch 1 PATCH TOPICAL (10:01)
--- NOTE | 2017-11-24 13:50 | CASEMGMT ---
Social Work Note Pt to discharge to TCU on Monday. Green sheet on chart. Plan: TCU Monday Federica Tomlin MSW, [employer]
[2017-11-24 14:55] VITALS: BP 127/76; PULSE 56; RESP 18; TEMP 36.8; O2SAT 96
[2017-11-24] MEDS: Ketorolac 10 MG Tablet PO (14:57)
[2017-11-24 20:55] VITALS: BP 133/78; PULSE 69; RESP 18; TEMP 37.3; O2SAT 99
[2017-11-25 02:50] VITALS: BP 145/95; PULSE 78; RESP 16; TEMP 36.3; O2SAT 98
--- NOTE | 2017-11-25 02:56 | CPS ---
pt refused CPAP, says hospital CPAP is too loud for him to sleep
[2017-11-25] MEDS: Enoxaparin 40 MG/0.4 ML Syringe SC (05:22)
[2017-11-25] MEDS: Levothyroxine 175 MCG Tablet PO (05:22)
[2017-11-25 07:24] VITALS: O2SAT 92
--- NOTE | 2017-11-25 09:29 | PCM.TXEXTCAR ---
- Diet 11/22/17 01:38 Diet: Regular Diet Food consistency:: Regular Liquid Consistency:: Regular/Thin - Therapies Weight Bearing: Full weight bearing Physical Therapy: Eval and Treat Occupational Therapy: Eval and Treat - Allergies/Procedures Done in Hospital Allergies/Adverse Reactions: Allergies No Known Allergies Allergy (Verified 11/21/17 23:06) Procedures: None - Type of Care/Length of Stay Estimated LOS: Convalescent Care Less Than 30 days Type of Care Needed: Skilled Rehab Potential: Poor Prognosis: Good - Additional Orders/Day of Discharge Day of Discharge: 11/25/17 - Follow Up Care Primary Care Physician: Sai Cobian MD [Primary Care Provider] - Within 2 Weeks
--- NOTE | 2017-11-25 09:30 | PCM.DC.SUM ---
Discharge Date and Diagnosis - Problem List Patient Problems: Active and Suspected Problems Intractable low back pain (Acute) Date of Admission: 11/22/17 Date of Discharge: 11/25/17 - Primary Discharge Diagnosis Active and Suspected Problems Multilevel spinal canal stenosis (Acute) Intractable low back pain (Acute) - Secondary Discharge Diagnosis Chronic Problems Hypothyroidism (Chronic) Anxiety (Chronic) Depression (Chronic) Hospital Course and Treatment Operations: None Procedures: None Summary of Care Provided: The patient is a 52 year old M mid for back pain. Patient had MRI that showed spinal stenosis but no cord compromise. Patient had some bulging disc but no cord contact. Patient felt that he was unable to go home. Patient had no active issues while he was here. Concern for the patient is motivation or lack thereof in regards to rehabbing and going home. Patient does not feel that he can care for himself at home. I feel that his back pain was due to strain due to a mechanical fall that he had while slipping a piece of cardboard on a linoleum floor and then doing some housework shortly thereafter. Exam has been consistent with muscular skeletal spasms. Concern for motivation and grogginess so I have discontinued narcotics. I had a very mandy discussion with the patient in regards to that he may be better suited going to home but he is halfway facility. My concern about the patient's rehabbing as I feel that he has low motivation so I feel that he actually be a poor candidate for going to a halfway facility due to just that. Remain to be seen if he is more motivated once he arrives there or not. Patient remained in the hospital for over 3 midnights, not that there is any active medical issues but that he would require 3 midnights per Medicare for him to go to a halfway facility. Physical exam Vital Signs Height 1.65 m Weight: 97.6 kg Weight in Pounds 215.2 lbs Pulse Ox 92 Temperature 36.3 C Pulse Rate 78 Respiratory Rate 16 Blood Pressure 145/95 Blood Pressure Position Sitting Patient sleeping in bed with audible snoring. No acute distress. Did not awake. [] Discharge Diet: No Restrictions Discharge Activity: Return to Normal Activity Home Medications: Medications to take at Discharge Omeprazole [Prilosec] 20 mg PO DAILY 03/29/16 Citalopram [Celexa] 40 mg PO DAILY 05/21/16 Levothyroxine [Synthroid] 175 mcg PO DAILY 05/21/16 Lorazepam [Ativan] 1 mg PO TID PRN PRN 05/21/16 Oxycodone HCl/Acetaminophen [Percocet 5/325] 1 tab PO Q6H PRN PRN 3 Days #12 tab 11/20/17 Primary Care Physician: Sai Cobian MD [Primary Care Provider] - Within 2 Weeks Disposition: Intermediate facility Minutes spent on discharge:: 32 Patient Condition:: Stable Medical Necessity - Tobacco Use Smoking Status: Current every day smoker Meaningful Use Info Meaningful Use Diagnoses (Choose all that apply): None applicable Code Visit Inpatient E&M: 02722 Disch Hosp
--- NOTE | 2017-11-25 09:34 | DS.PCM_ITS ---
Discharge Date and Diagnosis - Problem List Patient Problems: Active and Suspected Problems Intractable low back pain (Acute) Date of Admission: 11/22/17 Date of Discharge: 11/25/17 - Primary Discharge Diagnosis Active and Suspected Problems Multilevel spinal canal stenosis (Acute) Intractable low back pain (Acute) - Secondary Discharge Diagnosis Chronic Problems Hypothyroidism (Chronic) Anxiety (Chronic) Depression (Chronic) Hospital Course and Treatment Operations: None Procedures: None Summary of Care Provided: The patient is a 52 year old M mid for back pain. Patient had MRI that showed spinal stenosis but no cord compromise. Patient had some bulging disc but no cord contact. Patient felt that he was unable to go home. Patient had no active issues while he was here. Concern for the patient is motivation or lack thereof in regards to rehabbing and going home. Patient does not feel that he can care for himself at home. I feel that his back pain was due to strain due to a mechanical fall that he had while slipping a piece of cardboard on a linoleum floor and then doing some housework shortly thereafter. Exam has been consistent with muscular skeletal spasms. Concern for motivation and grogginess so I have discontinued narcotics. I had a very mandy discussion with the patient in regards to that he may be better suited going to home but he is detention facility. My concern about the patient's rehabbing as I feel that he has low motivation so I feel that he actually be a poor candidate for going to a detention facility due to just that. Remain to be seen if he is more motivated once he arrives there or not. Patient remained in the hospital for over 3 midnights, not that there is any active medical issues but that he would require 3 midnights per Medicare for him to go to a detention facility. Physical exam Vital Signs Height 1.65 m Weight: 97.6 kg Weight in Pounds 215.2 lbs Pulse Ox 92 Temperature 36.3 C Pulse Rate 78 Respiratory Rate 16 Blood Pressure 145/95 Blood Pressure Position Sitting Patient sleeping in bed with audible snoring. No acute distress. Did not awake. [] Discharge Diet: No Restrictions Discharge Activity: Return to Normal Activity Home Medications: Medications to take at Discharge Omeprazole [Prilosec] 20 mg PO DAILY 03/29/16 Citalopram [Celexa] 40 mg PO DAILY 05/21/16 Levothyroxine [Synthroid] 175 mcg PO DAILY 05/21/16 Lorazepam [Ativan] 1 mg PO TID PRN PRN 05/21/16 Oxycodone HCl/Acetaminophen [Percocet 5/325] 1 tab PO Q6H PRN PRN 3 Days #12 tab 11/20/17 Primary Care Physician: Sai Cobian MD [Primary Care Provider] - Within 2 Weeks Disposition: Senior Living facility Minutes spent on discharge:: 32 Patient Condition:: Stable Medical Necessity - Tobacco Use Smoking Status: Current every day smoker Meaningful Use Info Meaningful Use Diagnoses (Choose all that apply): None applicable Code Visit Inpatient E&M: 38127 Disch Hosp
[2017-11-25 10:00] VITALS: BP 117/71; PULSE 63; RESP 16; TEMP 36.8; O2SAT 99
[2017-11-25] MEDS: LORazepam 1 MG Tablet PO (10:00)
[2017-11-25] MEDS: Pantoprazole Sodium 20 MG Tablet PO (10:00)
[2017-11-25] MEDS: Citalopram 40 MG TABLET PO (10:00)
[2017-11-25] MEDS: Senna Tablet 1 TABLET PO (10:00)
--- NOTE | 2017-11-25 11:12 | NURSING ---
called report to Roseline in TCU. she requests that we transfer patient after lunch. pt aware
[2017-11-25] MEDS: Lidocaine 5% Patch 1 PATCH TOPICAL (11:16)
[2017-11-25] MEDS: Ketorolac 10 MG Tablet PO (11:19)
== END 2017-11-25 13:33 | disposition skilled nursing facility (03) | DRG 552 ==
LOC: ED 11-22 00:06 → MS3 11-22 01:45
PROVIDERS: Admitting Provider Hospitalist; Emergency Provider Emergency Medicine; Family Provider Family Medicine; PCP Family Medicine
DX: S33.5XXA Sprain of ligaments of lumbar spine, initial encounter (principal); S39.012A Strain of muscle, fascia and tendon of lower back, initial encounter; W01.0XXA Fall on same level from slipping, tripping and stumbling without subsequent striking against object, initial encounter; M48.00 Spinal stenosis, site unspecified; F32.9 Major depressive disorder, single episode, unspecified; F41.9 Anxiety disorder, unspecified; E03.9 Hypothyroidism, unspecified; M62.830 Muscle spasm of back; Y93.E9 Activity, other interior property and clothing maintenance; Y92.89 Other specified places as the place of occurrence of the external cause; Y99.9 Unspecified external cause status; R20.2 Paresthesia of skin; F17.200 Nicotine dependence, unspecified, uncomplicated
CPT/HCPCS: 36415; 72148; 80048; 85025; 94660; 96374; 96375; 97110; 97116; 97162; 97166; 97530; 97535; 99282; 99283; 99406; A4216

== ENCOUNTER 2017-11-25 13:45 | Inpatient (IN) | payer MEDICARE, SELFPAY ==
[2017-11-25 14:19] VITALS: BP 126/75; PULSE 69; RESP 20; TEMP 37.1; O2SAT 96
--- NOTE | 2017-11-25 14:19 | NURSING ---
Patient admitted to room 20 from [facility] via wheelchair, patient oriented to room and call light system explained.
[2017-11-25] MEDS: Acetaminophen 325 MG Tablet 650 MG PO (18:07)
[2017-11-25 18:08] VITALS: BMI 36.6
[2017-11-25 18:14] VITALS: BMI 36.6
--- NOTE | 2017-11-25 20:49 | PCM.HP.STD ---
Problem List (1) GERD (gastroesophageal reflux disease) Status: Chronic (2) Multilevel spinal canal stenosis Status: Chronic (3) Intractable low back pain Status: Acute (4) Hypothyroidism Status: Chronic (5) Anxiety Status: Chronic (6) Depression Status: Chronic History of Present Illness Date of Admission: 11/25/17 Chief Complaint: Here for rehabilitation, strengthening, prior to discharge home alone. The patient is a 52 year old Male with below past medical history presented to [facility] Emergency Department with low back pain. 11/22/2017 Patient admitted to hospital with low back pain. Low back pain x 1 week, while packing to move. Spasm like pain, 10 out of 10. Radiates down thighs. MRI showed bilateral neural foraminal impingement, Bilateral L3-L4, L4-L5. Low back pain intractable, despite Percocet. Bloodwork okay. IV Dilaudid for pain. Flexeril TID, Oxycodone PRN breakthrough pain. IV Decadron, PT/OT. 11/22/2017 IV Decadron discontinued. Minimize narcotics. Use muscle relaxants, Use non-narcotics. Low molecular weight heparin for DVT prophylaxis. 11/23/2017 PT/OT Evaluation. MRI C-spine as outpatient. 11/24/2017 Stop Flexeril, Stop Oxycodone. MRI C-spine 11/28/2017. Patient states he cannot care for himself at home. He is requesting admission to long term facility. Per report, patient lacks motivation to benefit from physical therapy. No active unstable medical problems while patient in hospital. 11/25/2017 Admit to TCU for rehabilitation, strengthening, prior to discharge home alone. Past Medical History Past Medical History (Chronic Problems): Chronic Problems GERD (gastroesophageal reflux disease) (Chronic) Multilevel spinal canal stenosis (Chronic) Hypothyroidism (Chronic) Anxiety (Chronic) Depression (Chronic) Allergies No Known Allergies Allergy (Verified 11/21/17 23:06) Home Medications: Ambulatory Orders Medication Instructions Recorded Omeprazole [Prilosec] 20 mg PO DAILY 03/29/16 Citalopram [Celexa] 40 mg PO DAILY 05/21/16 Levothyroxine [Synthroid] 175 mcg PO DAILY 05/21/16 Acetaminophen [Tylenol Tablet] 650 mg PO Q6H PRN PRN tablet 11/25/17 Lidocaine [Lidoderm Patch] 1 patch TOPICAL DAILY 11/25/17 Lorazepam [Ativan] 1 mg PO BID PRN #4 tab 11/25/17 Surgical History: tonsillectomy Psychiatric History: Anxiety, Depression Lives: With Family Smoking Status: Current every day smoker Tobacco Use: Cigarettes Alcohol: Heavy - 2 beers per day. Drugs: None - *Family History Maternal History Items: No pertinent history Paternal History Items: No pertinent history Review of Systems Constitutional: Denies: Chills, Fever, Weight Change HEENT: Denies: Head Aches, Sinus Congestion, Sinus Drainage Cardiovascular: Denies: Chest Pain, Palpitations Respiratory: Denies: Cough, Shortness of breath at rest, Sputum production Gastrointestinal: Denies: Abdominal Pain, Nausea, Vomiting Genitourinary: Denies: Dysuria Musculoskeletal: Denies: Joint Pain, Joint Tenderness Skin: Denies: Rash, Wounds Neurological: Denies: Numbness, Tingling, Focal weakness Psychiatric: Denies: Anxiety, Depression, Homicidal Ideations, Suicidal Ideations Hematologic/ Lymphatic: Denies: Easy Bruising, Easy Bleeding VTE Information - Inpt Only VTE Present on Admission: No VTE Mechan Device Prophylaxis: Knee High KOKO Hose VTE Pharm Prophylaxis ordered?: Yes - Physical Exam General: Alert, Oriented x3, Cooperative HEENT: Atraumatic, PERRLA, EOMI, Normocephalic Neck: Supple, No JVD, Negative Carotid Bruits Lungs: Clear to auscultation, Normal air movement Cardiovascular: Regular rate, No murmurs Abdomen: Bowel Sounds Present, Soft, Non Tender Extremities: No edema, Capillary Refill Less than 3 Seconds Skin: No rashes, No breakdown Musculoskeletal: No Tenderness to Palpation of Joints or Extremities Neurological: Cranial nerves II-XII grossly intact Psych/Mental Status: Normal Affect, Appropriate Vital Signs Temp Pulse Resp BP Pulse Ox 98.7 F 69 20 H 126/75 H 96 11/25/17 14:19 11/25/17 14:19 11/25/17 14:19 11/25/17 14:19 11/25/17 14:19 Oxygen Delivery Method Room Air Weight: 99.79 kg Body Mass Index (BMI) 36.6 Intake and Output for Last 24 Hours 11/23/17 11/24/17 11/25/17 23:59 23:59 23:59 Intake Total 360 / 360 Balance 360 / 360 Assessment/Plan 52 year old male with below past medical history hospitalized for intractable back pain secondary to lumbar spinal stenosis, muscle strain, admitted to TCU for rehabilitation, strengthening, prior to discharge home alone. Debility - PT/OT. Pain - Tylenol 1000MG Q8H PRN mild pain, Lidoderm patch 1 patch daily. Bowel - Miralax 17GM daily, Senna/colace 1 tablet BID, Dulcolax 10MG PO daily PRN. Pneumonia vaccination - No indication for Pneumonia vaccinations. DVT prophylaxis - Lovenox 40MG SC daily. Depression - Citalopram 40MG daily. Hypothyroidism - Levothyroxine 175MCG daily. Anxiety - Ativan 1MG BID PRN. GERD - Pantoprazole 20MG daily. Tobacco Abuse - recommend smoking cessation. Alcohol Abuse - recommend alcohol abstinence. Morbid Obesity - recommend diet, exercise, weight loss.
--- NOTE | 2017-11-25 20:59 | HP.PCM_ITS ---
Problem List (1) GERD (gastroesophageal reflux disease) Status: Chronic (2) Multilevel spinal canal stenosis Status: Chronic (3) Intractable low back pain Status: Acute (4) Hypothyroidism Status: Chronic (5) Anxiety Status: Chronic (6) Depression Status: Chronic History of Present Illness Date of Admission: 11/25/17 Chief Complaint: Here for rehabilitation, strengthening, prior to discharge home alone. The patient is a 52 year old Male with below past medical history presented to [facility] Emergency Department with low back pain. 11/22/2017 Patient admitted to hospital with low back pain. Low back pain x 1 week, while packing to move. Spasm like pain, 10 out of 10. Radiates down thighs. MRI showed bilateral neural foraminal impingement, Bilateral L3-L4, L4-L5. Low back pain intractable, despite Percocet. Bloodwork okay. IV Dilaudid for pain. Flexeril TID, Oxycodone PRN breakthrough pain. IV Decadron, PT/OT. 11/22/2017 IV Decadron discontinued. Minimize narcotics. Use muscle relaxants, Use non-narcotics. Low molecular weight heparin for DVT prophylaxis. 11/23/2017 PT/OT Evaluation. MRI C-spine as outpatient. 11/24/2017 Stop Flexeril, Stop Oxycodone. MRI C-spine 11/28/2017. Patient states he cannot care for himself at home. He is requesting admission to alf facility. Per report, patient lacks motivation to benefit from physical therapy. No active unstable medical problems while patient in hospital. 11/25/2017 Admit to TCU for rehabilitation, strengthening, prior to discharge home alone. Past Medical History Past Medical History (Chronic Problems): Chronic Problems GERD (gastroesophageal reflux disease) (Chronic) Multilevel spinal canal stenosis (Chronic) Hypothyroidism (Chronic) Anxiety (Chronic) Depression (Chronic) Allergies No Known Allergies Allergy (Verified 11/21/17 23:06) Home Medications: Ambulatory Orders Medication Instructions Recorded Omeprazole [Prilosec] 20 mg PO DAILY 03/29/16 Citalopram [Celexa] 40 mg PO DAILY 05/21/16 Levothyroxine [Synthroid] 175 mcg PO DAILY 05/21/16 Acetaminophen [Tylenol Tablet] 650 mg PO Q6H PRN PRN tablet 11/25/17 Lidocaine [Lidoderm Patch] 1 patch TOPICAL DAILY 11/25/17 Lorazepam [Ativan] 1 mg PO BID PRN #4 tab 11/25/17 Surgical History: tonsillectomy Psychiatric History: Anxiety, Depression Lives: With Family Smoking Status: Current every day smoker Tobacco Use: Cigarettes Alcohol: Heavy - 2 beers per day. Drugs: None - *Family History Maternal History Items: No pertinent history Paternal History Items: No pertinent history Review of Systems Constitutional: Denies: Chills, Fever, Weight Change HEENT: Denies: Head Aches, Sinus Congestion, Sinus Drainage Cardiovascular: Denies: Chest Pain, Palpitations Respiratory: Denies: Cough, Shortness of breath at rest, Sputum production Gastrointestinal: Denies: Abdominal Pain, Nausea, Vomiting Genitourinary: Denies: Dysuria Musculoskeletal: Denies: Joint Pain, Joint Tenderness Skin: Denies: Rash, Wounds Neurological: Denies: Numbness, Tingling, Focal weakness Psychiatric: Denies: Anxiety, Depression, Homicidal Ideations, Suicidal Ideations Hematologic/ Lymphatic: Denies: Easy Bruising, Easy Bleeding VTE Information - Inpt Only VTE Present on Admission: No VTE Mechan Device Prophylaxis: Knee High [employer]OK[employer] Hose VTE Pharm Prophylaxis ordered?: Yes - Physical Exam General: Alert, Oriented x3, Cooperative HEENT: Atraumatic, PERRLA, EOMI, Normocephalic Neck: Supple, No JVD, Negative Carotid Bruits Lungs: Clear to auscultation, Normal air movement Cardiovascular: Regular rate, No murmurs Abdomen: Bowel Sounds Present, Soft, Non Tender Extremities: No edema, Capillary Refill Less than 3 Seconds Skin: No rashes, No breakdown Musculoskeletal: No Tenderness to Palpation of Joints or Extremities Neurological: Cranial nerves II-XII grossly intact Psych/Mental Status: Normal Affect, Appropriate Vital Signs Temp Pulse Resp BP Pulse Ox 98.7 F 69 20 H 126/75 H 96 11/25/17 14:19 11/25/17 14:19 11/25/17 14:19 11/25/17 14:19 11/25/17 14:19 Oxygen Delivery Method Room Air Weight: 99.79 kg Body Mass Index (BMI) 36.6 Intake and Output for Last 24 Hours 11/23/17 11/24/17 11/25/17 23:59 23:59 23:59 Intake Total 360 / 360 Balance 360 / 360 Assessment/Plan 52 year old male with below past medical history hospitalized for intractable back pain secondary to lumbar spinal stenosis, muscle strain, admitted to TCU for rehabilitation, strengthening, prior to discharge home alone. * Debility - PT/OT. * Pain - Tylenol 1000MG Q8H PRN mild pain, Lidoderm patch 1 patch daily. * Bowel - Miralax 17GM daily, Senna/colace 1 tablet BID, Dulcolax 10MG PO daily PRN. * Pneumonia vaccination - No indication for Pneumonia vaccinations. * DVT prophylaxis - Lovenox 40MG SC daily. * Depression - Citalopram 40MG daily. * Hypothyroidism - Levothyroxine 175MCG daily. * Anxiety - Ativan 1MG BID PRN. * GERD - Pantoprazole 20MG daily. * Tobacco Abuse - recommend smoking cessation. * Alcohol Abuse - recommend alcohol abstinence. * Morbid Obesity - recommend diet, exercise, weight loss.
[2017-11-25 23:00] VITALS: PULSE 60; RESP 15; O2SAT 97
[2017-11-26] MEDS: LORazepam 1 MG Tablet PO ×2 (05:06→16:26)
[2017-11-26] MEDS: Citalopram 40 MG TABLET PO (05:08)
[2017-11-26] MEDS: Levothyroxine 175 MCG Tablet PO (05:08)
[2017-11-26] MEDS: Lidocaine 5% Patch 1 PATCH TOPICAL (05:08)
[2017-11-26] MEDS: Pantoprazole Sodium 20 MG Tablet PO (05:08)
[2017-11-26] MEDS: Enoxaparin 40 MG/0.4 ML Syringe SC (05:09)
[2017-11-26 07:38] LABS: Absolute Lymphocyte Count 1.89 X10^3/ul (0.83-4.51); Absolute Neutrophil Count 5.8 X10^3/uL (2.0-7.7); Basophil# 0.03 X10^3/uL; Basophil% 0.3 % (0-1); Eosinophil# 0.14 X10^3/uL; Eosinophils% 1.6 % (0-5); Hematocrit 43.3 % (40-54); Hemoglobin 14.8 g/dl (13.0-16.5); Lymphocyte # 1.89 X10^3/ul (4.0); Lymphocyte % 21.6 % (19-41); Mean Corp Hgb Conc 34.2 g/gl (32-36); Mean Corpuscular Hgb 32.3 pg (27.0-32.0); Mean Corpuscular Volume 94.5 fL (80-94); Monocyte# 0.83 X10^3/uL; Monocyte% 9.5 % (0-10); Neutrophil # 5.82 X10^3/uL (2.7-7.7); Neutrophil % 66.7 % (47-70); Platelet Count 227 K/mm3 (150-450); RBC Distribution Width CV 12.7 % (11.6-14.6); Red Blood Count 4.58 M/mm3 (4.6-6.2); White Blood Count 8.7 K/mm3 (4.4-11.0)
[2017-11-26 07:40] LABS: POSITIVE COUNT NO; POSITIVE DIFFERENTIAL NO; POSITIVE MORPHOLOGY NO
[2017-11-26 08:10] LABS: Anion Gap 9 (5-15); BUN 18 mg/dL (7-18); BUN/Creat Ratio 16.4 RATIO (10-20); Calcium,Total 9.1 mg/dL (8.5-10.1); Chloride 104 mmol/L (98-107); EST Glomerular Filtration Rate 75 mL/min (>60); Est Glom Filt Rate - Afr Amer 91 mL/min (>60); Estimated Creatinine Clearance 69.89 ml/min; Glucose 84 mg/dL (74-106); Potassium 4.1 mmol/L (3.5-5.1); Sodium Level 137 mmol/L (136-145)
[2017-11-26 10:00] VITALS: PULSE 60; RESP 16
--- NOTE | 2017-11-26 10:44 | NURSING ---
Patient requesting PRN medication for pain and muscle spasms, NO for flexeril 10mg PO TID PRN and diclofenac 50mg BID PRN, patient made aware.
[2017-11-26] MEDS: Tuberculin,Purif.prot.deriv. 50 TU/ML Vial 5 ML ID (11:10)
[2017-11-26 15:21] VITALS: BP 124/81; PULSE 73; RESP 18; TEMP 36.6; O2SAT 94
--- NOTE | 2017-11-26 16:40 | NURSING ---
Addendum entered by Sissy Gee 11/26/17 18:40: This nurse spoke with patient regarding concerns with medications. Patient states I take my ativan three times a day at home and let it dissolve under my tongue so it works faster. This nurse explained to patient that we cannot allow him to take the medication in that manner while on TCU, because it is not how it is intended to be taken. Patient argumentative saying why does it matter. Patient states that if we are not going to give him his meds how he takes them at home, that he would like to discharge home, requesting ativan be increased to TID instead of BID. Dr. Carrion notified, okay with discharging patient if that is his wishes, ativan to stay at BID dose. Patient updated, would like to stay overnight and talk with Dr. Carrion in the morning and the secondary social studies teacher to discuss things further. Support offered. Original Note: While doing med pass, patient made the comment that he wanted heroin or meth - whatever he could get. I stated that is not appropriate here. He then asked for his PRN Ativan because he was anxious. He declined repositioning, toileting, food, and did not have any suggestions of non-pharmacologic interventions to help his anxiety. While administering PRN Ativan, patient placed pill under tongue. This nurse instructed that it is to be PO not SL. Patient stated that he was anxious and needed the medicine NOW and needed it to absorb faster. I then again educated him the ordered route of the medication and that the medication was not in SL form. He then took a sip of water and swallowed the medication. I then asked him to open his mouth so that I could inspect and verify that he in fact swallowed the pill. I did not visualize a pill under his tongue or along side of his cheeks. REBA Sheehan notified and stated she would inform Dr Carrion of this behavior.
[2017-11-27] MEDS: Lidocaine 5% Patch 1 PATCH TOPICAL (06:33)
[2017-11-27] MEDS: Senna/Docusate Sodium 1 Tablet PO (06:34)
[2017-11-27] MEDS: Polyethylene Glycol 3350 17 GM PACKET PO (06:34)
[2017-11-27] MEDS: Pantoprazole Sodium 20 MG Tablet PO (06:34)
[2017-11-27] MEDS: Citalopram 40 MG TABLET PO (06:34)
[2017-11-27] MEDS: Enoxaparin 40 MG/0.4 ML Syringe SC (06:34)
[2017-11-27] MEDS: Levothyroxine 175 MCG Tablet PO (06:34)
[2017-11-27] MEDS: LORazepam 1 MG Tablet PO ×2 (06:44→19:54)
--- NOTE | 2017-11-27 08:20 | NURSING ---
door was closed, knocked, opened door and introduced myself to pt. Pt laying on belly, turned head to get eye contact and then layed back down. Pt seemed to be agitated that this nurse checked in. Ask him if he needed anything and pt denied needs. Will monitor.
--- NOTE | 2017-11-27 13:01 | NURSING ---
pt requesting antacid for indigestion. Dr Carrion notified, new order given.
[2017-11-27] MEDS: Calcium Carbonate 500 MG Tablet PO (13:15)
--- NOTE | 2017-11-27 13:32 | PCM.PN.RX ---
<Germain Webster D - Last Filed: 11/27/17 13:39> Progress Note - Pharmacy Subjective: TCU Admission Objective: Allergies No Known Allergies Allergy (Verified 11/21/17 23:06) Home Medications Medication Instructions Recorded Omeprazole [Prilosec] 20 mg PO DAILY 03/29/16 Citalopram [Celexa] 40 mg PO DAILY 05/21/16 Levothyroxine [Synthroid] 175 mcg PO DAILY 05/21/16 Acetaminophen [Tylenol Tablet] 650 mg PO Q6H PRN PRN tablet 11/25/17 Lidocaine [Lidoderm Patch] 1 patch TOPICAL DAILY 11/25/17 Lorazepam [Ativan] 1 mg PO BID PRN #4 tab 11/25/17 Current Medications Generic Name Dose Route Start Last Admin Trade Name Freq PRN Reason Stop Dose Admin Acetaminophen 1,000 mg 11/25/17 21:08 Tylenol PO Q8H PRN PRN MILD PAIN (1-3/10) Bisacodyl 10 mg 11/25/17 21:07 Dulcolax PO DAILY PRN Constipation Calcium Carbonate 500 mg 11/27/17 12:57 11/27/17 13:15 Tums PO 500 mg Q4H PRN PRN Administration INDIGESTION Citalopram Hydrobromide 40 mg 11/26/17 06:00 11/27/17 06:34 Celexa PO 40 mg DAILY TONY Administration Cyclobenzaprine HCl 10 mg 11/26/17 10:46 Flexeril PO TID PRN PRN MUSCLE SPASM Diclofenac Sodium 50 mg 11/26/17 18:00 11/27/17 06:36 Voltaren PO 50 mg BID PRN Administration PAIN Enoxaparin Sodium 40 mg 11/26/17 06:00 11/27/17 06:34 Lovenox SC 40 mg DAILY@0600 TONY Administration Levothyroxine Sodium 175 mcg 11/26/17 06:00 11/27/17 06:34 Synthroid PO 175 mcg DAILY TONY Administration Lidocaine 1 patch 11/26/17 06:00 11/27/17 06:33 Lidoderm Patch TOPICAL 1 patch DAILY TONY Administration Protocol Lorazepam 1 mg 11/25/17 14:33 11/27/17 06:44 Ativan PO 1 mg BID PRN Administration ANXIETY Pantoprazole Sodium 20 mg 11/26/17 06:00 11/27/17 06:34 Protonix PO 20 mg DAILY TONY Administration Polyethylene Glycol 17 gm 11/26/17 06:00 11/27/17 06:34 Miralax PO 17 gm DAILY TONY Administration Senna/Docusate Sodium 1 tablet 11/26/17 06:00 11/27/17 06:34 Senokot-S, Rosalba-Colace PO 1 tablet BID TONY Administration Tuberculin PPD 5 tu 12/03/17 10:00 Tubersol, Aplisol, Ppd ID 12/03/17 10:01 X1 ONE Problem List GERD (gastroesophageal reflux disease) (Chronic) Vital Signs Temp Pulse Resp BP Pulse Ox 97.8 F 73 18 124/81 H 94 11/26/17 15:21 11/26/17 15:21 11/26/17 15:21 11/26/17 15:21 11/26/17 15:21 Oxygen Delivery Method Room Air Weight: 99.79 kg Body Mass Index (BMI) 36.6 Sodium 137 mmol/L (136-145) 11/26/17 06:51 Potassium 4.1 mmol/L (3.5-5.1) 11/26/17 06:51 Chloride 104 mmol/L (98-107) 11/26/17 06:51 Carbon Dioxide 24.0 mmol/L (21.0-32.0) 11/26/17 06:51 Anion Gap 9 (5-15) 11/26/17 06:51 BUN 18 mg/dL (7-18) 11/26/17 06:51 Creatinine 1.10 mg/dL (0.70-1.30) 11/26/17 06:51 Est GFR (MDRD) Af Amer 91 mL/min (>60) 11/26/17 06:51 Est GFR (MDRD) Non-Af 75 mL/min (>60) 11/26/17 06:51 BUN/Creatinine Ratio 16.4 RATIO (10-20) 11/26/17 06:51 Glucose 84 mg/dL (74-106) 11/26/17 06:51 Assessment/Plan: 1) Pain APAP for mild pain, cyclobenzaprine for spasm, diclofenac for pain, lidocaine topically, 2) Hypothyroidism Levothyroxine daily. Continue to monitor s/s hyper/hypothyroidism. 3) GI Pantoprazole daily, Tums as needed. Continue to monitor, prn medication use, s/s GI distress. 4) DVT PPx Enoxaparin daily. Continue to monitor s/s bleeding/clot. Psychotropic Medications: 5) Anxiety Lorazepam as needed. Continue to monitor prn medication use, for anxiety. 6) Depression Citalopram daily. Continue to monitor s/s depression. Unnecessary Medications: None Bowel Regimen: 7) Senna/s, PEG, prn bisacodyl. Continue to monitor prn medication use, for constipation/diarrhea. Date of Note:: 11/27/17 - Provider Comments Provider responsibility: Provider responsible to enter orders to implement recommendations <Gage Carrion Chi - Last Filed: 11/27/17 17:42> Progress Note - Pharmacy Subjective: [] Objective: Allergies No Known Allergies Allergy (Verified 11/21/17 23:06) Home Medications Medication Instructions Recorded Omeprazole [Prilosec] 20 mg PO DAILY 03/29/16 Citalopram [Celexa] 40 mg PO DAILY 05/21/16 Levothyroxine [Synthroid] 175 mcg PO DAILY 05/21/16 Acetaminophen [Tylenol Tablet] 650 mg PO Q6H PRN PRN tablet 11/25/17 Lidocaine [Lidoderm Patch] 1 patch TOPICAL DAILY 11/25/17 Lorazepam [Ativan] 1 mg PO BID PRN #4 tab 11/25/17 Current Medications Generic Name Dose Route Start Last Admin Trade Name Freq PRN Reason Stop Dose Admin Acetaminophen 1,000 mg 11/25/17 21:08 Tylenol PO Q8H PRN PRN MILD PAIN (1-3/10) Bisacodyl 10 mg 11/25/17 21:07 Dulcolax PO DAILY PRN Constipation Calcium Carbonate 500 mg 11/27/17 12:57 11/27/17 13:15 Tums PO 500 mg Q4H PRN PRN Administration INDIGESTION Citalopram Hydrobromide 40 mg 11/26/17 06:00 11/27/17 06:34 Celexa PO 40 mg DAILY TONY Administration Cyclobenzaprine HCl 10 mg 11/26/17 10:46 Flexeril PO TID PRN PRN MUSCLE SPASM Diclofenac Sodium 50 mg 11/26/17 18:00 11/27/17 06:36 Voltaren PO 50 mg BID PRN Administration PAIN Enoxaparin Sodium 40 mg 11/26/17 06:00 11/27/17 06:34 Lovenox SC 40 mg DAILY@0600 TONY Administration Levothyroxine Sodium 175 mcg 11/26/17 06:00 11/27/17 06:34 Synthroid PO 175 mcg DAILY TONY Administration Lidocaine 1 patch 11/26/17 06:00 11/27/17 06:33 Lidoderm Patch TOPICAL 1 patch DAILY TONY Administration Protocol Lorazepam 1 mg 11/25/17 14:33 11/27/17 06:44 Ativan PO 1 mg BID PRN Administration ANXIETY Pantoprazole Sodium 20 mg 11/26/17 06:00 11/27/17 06:34 Protonix PO 20 mg DAILY TONY Administration Polyethylene Glycol 17 gm 11/26/17 06:00 11/27/17 06:34 Miralax PO 17 gm DAILY TONY Administration Senna/Docusate Sodium 1 tablet 11/26/17 06:00 11/27/17 06:34 Senokot-S, Rosalba-Colace PO 1 tablet BID TONY Administration Tuberculin PPD 5 tu 12/03/17 10:00 Tubersol, Aplisol, Ppd ID 12/03/17 10:01 X1 ONE Problem List GERD (gastroesophageal reflux disease) (Chronic) Vital Signs Temp Pulse Resp BP Pulse Ox 98.1 F 50 L 18 124/69 H 93 11/27/17 15:36 11/27/17 15:36 11/27/17 15:36 11/27/17 15:36 11/27/17 15:36 Oxygen Delivery Method Room Air Weight: 99.79 kg Body Mass Index (BMI) 36.6 Sodium 137 mmol/L (136-145) 11/26/17 06:51 Potassium 4.1 mmol/L (3.5-5.1) 11/26/17 06:51 Chloride 104 mmol/L (98-107) 11/26/17 06:51 Carbon Dioxide 24.0 mmol/L (21.0-32.0) 11/26/17 06:51 Anion Gap 9 (5-15) 11/26/17 06:51 BUN 18 mg/dL (7-18) 11/26/17 06:51 Creatinine 1.10 mg/dL (0.70-1.30) 11/26/17 06:51 Est GFR (MDRD) Af Amer 91 mL/min (>60) 11/26/17 06:51 Est GFR (MDRD) Non-Af 75 mL/min (>60) 11/26/17 06:51 BUN/Creatinine Ratio 16.4 RATIO (10-20) 11/26/17 06:51 Glucose 84 mg/dL (74-106) 11/26/17 06:51 Assessment/Plan: Psychotropic Medications: Unnecessary Medications: Bowel Regimen: - Provider Comments Provider responsibility: Provider responsible to enter orders to implement recommendations Provider Comments to Recommendations by Pharmacy: Agree
[2017-11-27 15:36] VITALS: BP 124/69; PULSE 50; RESP 18; TEMP 36.7; O2SAT 93
[2017-11-27 20:03] VITALS: O2SAT 97
--- NOTE | 2017-11-27 20:16 | NURSING ---
Pt questioning about visiting hours on unit and then stated I know you guys do not have any so my son gets back to [facility] and he will be in. This nurse then asked if there was anything he needed. Pt laughing and stating he needed some heroin, meth, strippers and alcohol. This nurse explained that all of those things were not allowed on the unit. Pt then stating I guess I came to the wrong place. Pt then requested Ativan d/t him being very anxious. Pt was resting calmly in bed texting on his phone. This nurse simply stated Are you sure you are anxious?. Pt then went into a lengthy discussion about how the staff does not understand what he is going through and we wont allow him to have it TID, so when he needs it he needs it. Ativan was given per pt request. Pt continued to lay in bed playing on his cell phone. Call light in reach.
[2017-11-28] MEDS: Senna/Docusate Sodium 1 Tablet PO ×2 (06:34→17:08)
[2017-11-28] MEDS: Lidocaine 5% Patch 1 PATCH TOPICAL (06:34)
[2017-11-28] MEDS: Polyethylene Glycol 3350 17 GM PACKET PO (06:34)
[2017-11-28] MEDS: Pantoprazole Sodium 20 MG Tablet PO (06:34)
[2017-11-28] MEDS: Citalopram 40 MG TABLET PO (06:34)
[2017-11-28] MEDS: Levothyroxine 175 MCG Tablet PO (06:34)
[2017-11-28] MEDS: Enoxaparin 40 MG/0.4 ML Syringe SC (06:34)
[2017-11-28] MEDS: Calcium Carbonate 500 MG Tablet PO (11:05)
[2017-11-28 14:18] VITALS: BP 132/70; PULSE 66; RESP 16; TEMP 36.7; O2SAT 98
[2017-11-28] MEDS: LORazepam 1 MG Tablet PO (21:28)
[2017-11-29] MEDS: Lidocaine 5% Patch 1 PATCH TOPICAL (06:30)
[2017-11-29] MEDS: Senna/Docusate Sodium 1 Tablet PO ×2 (06:31→17:52)
[2017-11-29] MEDS: Pantoprazole Sodium 20 MG Tablet PO (06:31)
[2017-11-29] MEDS: Enoxaparin 40 MG/0.4 ML Syringe SC (06:32)
[2017-11-29] MEDS: Levothyroxine 175 MCG Tablet PO (06:32)
[2017-11-29] MEDS: Polyethylene Glycol 3350 17 GM PACKET PO (06:32)
[2017-11-29] MEDS: Citalopram 40 MG TABLET PO (06:32)
--- NOTE | 2017-11-29 08:40 | NURSING ---
Pt c/o 20mg Protonix not working, Dr Carrion aware N.O. 40mg Protonix BID
[2017-11-29 10:00] VITALS: PULSE 73; RESP 16
[2017-11-29] MEDS: Calcium Carbonate 500 MG Tablet PO (10:11)
[2017-11-29] MEDS: LORazepam 1 MG Tablet PO ×2 (10:11→20:56)
--- NOTE | 2017-11-29 10:15 | CASEMGMT ---
Plan of care meeting held. Resident present as well as resident family. No discharge date set at this time. Resident plans to discharge home with son at time of discharge. Resident to continue with further care and treatment on the Transitional Care Unit. Support given. Will continue to follow. Amie STAFFORD, EXECUTIVE ADVISOR
--- NOTE | 2017-11-29 12:29 | NURSING ---
Addendum entered by Lexi Lopez 11/29/17 12:34: pt also requested that his AM meds be changed to later in AM. Changed per pt anabel Original Note: [facility] notified per [employer] manager request. Pt needs filter replaced on CPAP machine. They will be in to replace sometime today. Pt aware.
[2017-11-29 15:36] VITALS: BP 106/65; PULSE 80; RESP 18; TEMP 36.5; O2SAT 93
--- NOTE | 2017-11-29 17:58 | NURSING ---
Addendum entered by Lexi Lopez 11/29/17 18:40: PHARMACY ABLE TO OBTAIN PRILOSEC, TOOK TO ADMINISTER TO PT, AFTER SCANNING PT STATED I WOULD LIKE TO TAKE THAT IN AM INSTEAD OF TONIGHT, OH SINCE YOU SCANNED IT I WILL TAKE IT Original Note: PT REFUSING PROTONIX, FEELS IT DOES NOT WORK LIKE HIS OMEPRAZOLE, PHARMACY TO OBTAIN FROM OUTSIDE SOURCE.
[2017-11-29] MEDS: Omeprazole 20 MG Capsule PO (18:37)
[2017-11-30] MEDS: Levothyroxine 175 MCG Tablet PO (09:19)
[2017-11-30] MEDS: Citalopram 40 MG TABLET PO (09:20)
[2017-11-30] MEDS: Senna/Docusate Sodium 1 Tablet PO (09:20)
[2017-11-30] MEDS: Enoxaparin 40 MG/0.4 ML Syringe SC (09:22)
[2017-11-30] MEDS: Lidocaine 5% Patch 1 PATCH TOPICAL (09:22)
[2017-11-30] MEDS: Pantoprazole Sodium 20 MG Tablet PO (09:26)
--- NOTE | 2017-11-30 13:51 | MDS.RN ---
Pain interview for gonzales 09/04/17 completed.
[2017-11-30 15:10] VITALS: BP 154/85; PULSE 69; RESP 18; TEMP 36.2; O2SAT 96
--- NOTE | 2017-11-30 16:07 | NURSING ---
Toenails clipped per pt request. Pt pleasant, joking and talking.
--- NOTE | 2017-11-30 16:15 | CHAPLAIN ---
Type of Pastoral Visit _x__ Initial Visit ___ Follow-up Visit ___ On-call Visit ___ General Patient Visit ___ Spiritual Assessment ___ Family Conference ___ Bereavement ___ Rapid Response ___ Code Blue ___ Other (describe below) Pastoral Care Referral From _x__ Patient ___ Family _x__ Nurse ___ Physician ___ Disc Pad Grinder ___ Spot Remover ___ Other (describe below) Sacrament/Intervention _x__ Active listening ___ Anointing ___ Catholic ___ Bereavement ___ Communion ___ Amarilys exploration ___ _x__ Life review _x__ Prayer ___ Reconciliation ___ Sacrament of Sick _x__ Supportive presence ___ Wedding ___ Other (describe below) Pastoral Comments patient requested someone to talk with and RN recommended this wellness program manager; pt describes his life and health history; pt speaks of being isolated from people; pt has some anxiety about his future; pt has concern for a daughter who is making poor life choices; pt is talkative; we discuss activities that he enjoys and how he can reclaim some life pleasures; pt is accepting of prayer and of future visits
[2017-11-30] MEDS: LORazepam 1 MG Tablet PO (21:14)
[2017-12-01] MEDS: Levothyroxine 175 MCG Tablet PO (08:48)
[2017-12-01] MEDS: Citalopram 40 MG TABLET PO (08:49)
[2017-12-01] MEDS: Enoxaparin 40 MG/0.4 ML Syringe SC (08:50)
[2017-12-01] MEDS: Pantoprazole Sodium 20 MG Tablet PO (08:50)
--- NOTE | 2017-12-01 14:24 | NURSING ---
Dr. Carrion updated that pt refusing his Lidoderm patch today, stating it is not effective for him, N.O. to d/c patch
--- NOTE | 2017-12-01 15:21 | CASEMGMT ---
Brief interview for mental status (BIMS) and resident mood interview completed on this day. BIMS score 15/15. PHQ-9 score 08/19.
[2017-12-01 15:34] VITALS: BP 135/85; PULSE 64; RESP 18; TEMP 37.1; O2SAT 96
[2017-12-01] MEDS: LORazepam 1 MG Tablet PO (16:26)
[2017-12-01 20:23] VITALS: RESP 18
[2017-12-02] MEDS: Acetaminophen 500 MG Tablet 1000 MG PO ×2 (05:35→20:47)
[2017-12-02] MEDS: Citalopram 40 MG TABLET PO (08:35)
[2017-12-02] MEDS: Senna/Docusate Sodium 1 Tablet PO (08:36)
[2017-12-02] MEDS: Enoxaparin 40 MG/0.4 ML Syringe SC (08:38)
[2017-12-02] MEDS: Omeprazole 20 MG Capsule PO (09:09)
[2017-12-02] MEDS: Levothyroxine 175 MCG Tablet PO (11:13)
[2017-12-02] MEDS: LORazepam 1 MG Tablet PO (12:15)
[2017-12-02 15:24] VITALS: BP 109/71; PULSE 61; RESP 16; TEMP 36.1; O2SAT 97
[2017-12-03] MEDS: LORazepam 1 MG Tablet PO ×2 (00:15→16:51)
[2017-12-03 06:02] LABS: Absolute Lymphocyte Count 2.34 X10^3/ul (0.83-4.51); Absolute Neutrophil Count 5.4 X10^3/uL (2.0-7.7); Basophil# 0.03 X10^3/uL; Basophil% 0.3 % (0-1); Eosinophil# 0.17 X10^3/uL; Eosinophils% 1.9 % (0-5); Hematocrit 43.4 % (40-54); Hemoglobin 14.3 g/dl (13.0-16.5); Lymphocyte # 2.34 X10^3/ul (4.0); Lymphocyte % 26.2 % (19-41); Mean Corp Hgb Conc 32.9 g/gl (32-36); Mean Corpuscular Hgb 31.5 pg (27.0-32.0); Mean Corpuscular Volume 95.6 fL (80-94); Mean Platelet Vol. 11.2 fl (6.2-12.0); Monocyte# 0.92 X10^3/uL; Monocyte% 10.3 % (0-10); Neutrophil # 5.44 X10^3/uL (2.7-7.7); Neutrophil % 61.1 % (47-70); Platelet Count 242 K/mm3 (150-450); RBC Distribution Width CV 12.6 % (11.6-14.6); RBC Distribution Width SD 43.4 fl (35.1-43.9); Red Blood Count 4.54 M/mm3 (4.6-6.2); White Blood Count 8.9 K/mm3 (4.4-11.0)
[2017-12-03 06:03] LABS: POSITIVE COUNT NO; POSITIVE DIFFERENTIAL NO; POSITIVE MORPHOLOGY NO
[2017-12-03 06:17] LABS: Anion Gap 6 (5-15); BUN 14 mg/dL (7-18); BUN/Creat Ratio 11.7 RATIO (10-20); Calcium,Total 8.8 mg/dL (8.5-10.1); Chloride 105 mmol/L (98-107); EST Glomerular Filtration Rate 68 mL/min (>60); Est Glom Filt Rate - Afr Amer 82 mL/min (>60); Estimated Creatinine Clearance 64.06 ml/min; Glucose 97 mg/dL (74-106); Sodium Level 139 mmol/L (136-145)
[2017-12-03] MEDS: Citalopram 40 MG TABLET PO (09:27)
[2017-12-03] MEDS: Senna/Docusate Sodium 1 Tablet PO (09:27)
[2017-12-03] MEDS: Enoxaparin 40 MG/0.4 ML Syringe SC (09:27)
[2017-12-03] MEDS: Omeprazole 20 MG Capsule PO (09:27)
[2017-12-03] MEDS: Levothyroxine 175 MCG Tablet PO (09:27)
[2017-12-03] MEDS: Tuberculin,Purif.prot.deriv. 50 TU/ML Vial 5 ML ID (11:17)
[2017-12-03 15:20] VITALS: BP 146/81; PULSE 60; RESP 16; TEMP 36.7; O2SAT 95
[2017-12-04] MEDS: Enoxaparin 40 MG/0.4 ML Syringe SC (09:08)
[2017-12-04] MEDS: Citalopram 40 MG TABLET PO (09:08)
[2017-12-04] MEDS: Omeprazole 20 MG Capsule PO (09:08)
[2017-12-04] MEDS: Levothyroxine 175 MCG Tablet PO (09:09)
[2017-12-04] MEDS: LORazepam 1 MG Tablet PO (11:08)
[2017-12-04 15:39] VITALS: BP 136/73; PULSE 72; RESP 18; TEMP 36.4; O2SAT 95
--- NOTE | 2017-12-04 16:39 | CHAPLAIN ---
Type of Pastoral Visit ___ Initial Visit _x__ Follow-up Visit ___ On-call Visit ___ General Patient Visit ___ Spiritual Assessment ___ Family Conference ___ Bereavement ___ Rapid Response ___ Code Blue ___ Other (describe below) Pastoral Care Referral From _x__ Patient ___ Family ___ Nurse ___ Physician ___ Visual Journalist ___ Undercutter Operator ___ Other (describe below) Sacrament/Intervention _x__ Active listening ___ Anointing ___ Pentecostal ___ Bereavement ___ Communion ___ Amarilys exploration ___ ___ Life review ___ Prayer ___ Reconciliation ___ Sacrament of Sick ___ Supportive presence ___ Wedding ___ Other (describe below) Pastoral Comments
[2017-12-05] MEDS: LORazepam 1 MG Tablet PO ×2 (00:16→22:15)
[2017-12-05] MEDS: Citalopram 40 MG TABLET PO (10:03)
[2017-12-05] MEDS: Omeprazole 20 MG Capsule PO (10:03)
[2017-12-05] MEDS: Enoxaparin 40 MG/0.4 ML Syringe SC (10:03)
[2017-12-05] MEDS: Levothyroxine 175 MCG Tablet PO (10:03)
[2017-12-05] MEDS: Calcium Carbonate 500 MG Tablet PO (11:30)
--- NOTE | 2017-12-05 15:55 | CASEMGMT ---
Social Work Spoke with resident in room. This social security specialist communicating to resident that discharge date has been set for 12/08/17. Resident is agreeable to discharge date and plans to discharge home with son. Resident signing NOMNOC. This social security specialist communicating to resident that physical therapy is recommending for resident to continue with services through outpatient physical therapy. Resident is agreeable to recommendation and requesting for services to be set up through [facility]. Resident aware that an order will be faxed to [facility] and then [facility] will contact resident to set up appointment. Resident reporting to also need a walker at time of discharge. Resident does not have a preference of [employer], [employer] to be utilized. Resident reporting that family will provide transportation home for resident at time of discharge. Resident declining for this social security specialist to contact resident family in regards to discharge plan. Resident reporting to plan to contact family. Support given. Will fax order's and make appropriate referral to [facility] and [facility] when orders have been obtained. Proposed discharge date: 12/08/17 PLAN: Discharge home with son and outpatient physical therapy. Amie STAFFORD, COLLEGE COACH
[2017-12-05 16:00] VITALS: BP 142/94; PULSE 73; RESP 18; TEMP 36.8; O2SAT 94
--- NOTE | 2017-12-05 22:29 | PCM.DC ---
- Discharge Diagnoses Current Active Problems: Current Active and Chronic Problems GERD (gastroesophageal reflux disease) (Chronic) You will use the following diet at home:: No restrictions, Regular Your food should be the consistency of: Regular Your liquids should be the consistency of: Regular/Thin Discharge Activity: Return to Normal Activity, May Shower, Use Walker Weight Bearing Status: Weight bearing as tolerated Call your doctor if you observe: Fever of 101 or Higher, Inability to urinate, Inability to have a bowel movement, Shortness of breath, Chest pain, Uncontrolled pain Allergies/Adverse Reactions: Allergies No Known Allergies Allergy (Verified 11/21/17 23:06) Medications to take at Discharge Omeprazole [Prilosec] 20 mg PO DAILY 03/29/16 Citalopram [Celexa] 40 mg PO DAILY 05/21/16 Levothyroxine [Synthroid] 175 mcg PO DAILY 05/21/16 Lorazepam [Ativan] 1 mg PO BID PRN #4 tab 11/25/17 Acetaminophen [Tylenol] 1,000 mg PO Q8H PRN PRN tablet 12/05/17 Calcium Carbonate [Tums] 500 mg PO Q4H PRN PRN tablet 12/05/17 Cyclobenzaprine [Flexeril] 10 mg PO TID PRN PRN #90 tab 12/05/17 Diclofenac [Voltaren] 50 mg PO BID PRN #30 tab 12/05/17 Omeprazole [Prilosec] 20 mg PO DAILY@0800 capsule 12/05/17 The following prescriptions were given: Cyclobenzaprine [Flexeril] 10 mg PO TID PRN PRN #90 tab PRN Reason: Muscle Spasm Diclofenac [Voltaren] 50 mg PO BID PRN #30 tab PRN Reason: Pain Primary Care Physician: Sai Cobian MD [Primary Care Provider] - Please follow up with your Primary Care Physician in: 1 week. Proposed Discharge Date: 12/08/17
--- NOTE | 2017-12-05 22:31 | PCM.DC.SUM ---
Discharge Date and Diagnosis Date of Admission: 11/25/17 Date of Discharge: 12/08/17 - Secondary Discharge Diagnosis Chronic Problems GERD (gastroesophageal reflux disease) (Chronic) Multilevel spinal canal stenosis (Chronic) Hypothyroidism (Chronic) Anxiety (Chronic) Depression (Chronic) Hospital Course and Treatment Imaging Results: 11/25/17 14:40 Diet: Regular Diet Operations: None Procedures: None Summary of Care Provided: The patient is a 52 year old Male with below past medical history hospitalized for intractable back pain secondary to lumbar spinal stenosis, muscle strain, admitted to TCU for rehabilitation, strengthening, prior to discharge home alone. Discharge home with son, and outpatient physical therapy. Discharge Diet: No Restrictions Discharge Activity: Return to Normal Activity, May Shower, Use Walker Weight Bearing Status: Weight bearing as tolerated Call your doctor if you observe: Fever of 101 or Higher, Inability to urinate, Inability to have a bowel movement, Shortness of breath, Chest pain, Uncontrolled pain Home Medications: Medications to take at Discharge Omeprazole [Prilosec] 20 mg PO DAILY 03/29/16 Citalopram [Celexa] 40 mg PO DAILY 05/21/16 Levothyroxine [Synthroid] 175 mcg PO DAILY 05/21/16 Lorazepam [Ativan] 1 mg PO BID PRN #4 tab 11/25/17 Acetaminophen [Tylenol] 1,000 mg PO Q8H PRN PRN tablet 12/05/17 Calcium Carbonate [Tums] 500 mg PO Q4H PRN PRN tablet 12/05/17 Cyclobenzaprine [Flexeril] 10 mg PO TID PRN PRN #90 tab 12/05/17 Diclofenac [Voltaren] 50 mg PO BID PRN #30 tab 12/05/17 Omeprazole [Prilosec] 20 mg PO DAILY@0800 capsule 12/05/17 Following Prescrptions Were Given to Patient: Cyclobenzaprine [Flexeril] 10 mg PO TID PRN PRN #90 tab PRN Reason: Muscle Spasm Diclofenac [Voltaren] 50 mg PO BID PRN #30 tab PRN Reason: Pain Primary Care Physician: Sai Cobian MD [Primary Care Provider] - Please follow up with your Primary Care Physician in: 1 week. Disposition: Home Minutes spent on discharge:: 30 Patient Condition:: Good Medical Necessity - Tobacco Use Smoking Status: Current every day smoker Tobacco Use: Cigarettes Meaningful Use Info Meaningful Use Diagnoses (Choose all that apply): None applicable
[2017-12-06] MEDS: Enoxaparin 40 MG/0.4 ML Syringe SC (08:54)
[2017-12-06] MEDS: Citalopram 40 MG TABLET PO (08:54)
[2017-12-06] MEDS: Omeprazole 20 MG Capsule PO (08:54)
[2017-12-06] MEDS: Levothyroxine 175 MCG Tablet PO (08:54)
[2017-12-06] MEDS: LORazepam 1 MG Tablet PO (11:37)
--- NOTE | 2017-12-06 15:06 | CASEMGMT ---
Social Work Order for outpatient physical therapy obtained and faxed to [facility]. [facility] to contact resident to set up appointment. Order for walker faxed to [facility]. [facility] to have walker delivered by time of discharge. Proposed discharge date: 12/08/17 PLAN: Discharge home with son and outpatient physical therapy. Amie STAFFORD, LABORER VEGETABLE FARM
[2017-12-06 15:53] VITALS: BP 138/67; PULSE 59; RESP 18; TEMP 36.4; O2SAT 100
--- NOTE | 2017-12-06 16:23 | CASEMGMT ---
Social Work Spoke with resident in room. Resident is now requesting for discharge date to be set for 12/06/17, spoke with staff/therapy, 12/06/17 is an agreeable date at this time. Resident plans to continue with prior discharge plan. Resident family to provide transportation home for resident. Telephone call to [facility]. This drug abuse social worker notified [facility] of discharge date change. [facility] reporting to be able to deliver walker to resident room prior to resident discharge on this day. Proposed discharge date: 12/06/17 PLAN: Discharge home with son and outpatient physical therapy. Amie STAFFORD, SCREEN HANDLER
--- NOTE | 2017-12-08 12:10 | MDS.RN ---
Information for the mds was obtained from review of the clinical record, interview of resident, staff, and direct observation of resident's care.
--- NOTE | 2017-12-14 10:54 | CASEMGMT ---
Social Work Telephone call from resident. Resident asking this renal social worker about possible community support for socialization and general support. This renal social worker collaborating with resident and discovering that the [facility] might be a good option for resident at this time. Resident is open to a referral being placed. Support given. Referral made to the [facility]. Amie STAFFORD, JUNIOR SALES ASSISTANT
== END 2017-12-06 17:45 | disposition home or self-care (01) | DRG 948 ==
PROVIDERS: Admitting Provider Family Medicine Geriatric Medicine; Family Provider Family Medicine; PCP Family Medicine; Visit Provider Family Medicine Geriatric Medicine
DX: R53.81 Other malaise (principal); S39.012D Strain of muscle, fascia and tendon of lower back, subsequent encounter; M48.061 Spinal stenosis, lumbar region without neurogenic claudication; E03.9 Hypothyroidism, unspecified; F41.9 Anxiety disorder, unspecified; F32.9 Major depressive disorder, single episode, unspecified; K21.9 Gastro-esophageal reflux disease without esophagitis; Z79.899 Other long term (current) drug therapy; F17.210 Nicotine dependence, cigarettes, uncomplicated; F10.10 Alcohol abuse, uncomplicated; E66.01 Morbid (severe) obesity due to excess calories; Z68.36 Body mass index [BMI] 36.0-36.9, adult; Z71.3 Dietary counseling and surveillance; X58.XXXD Exposure to other specified factors, subsequent encounter
CPT/HCPCS: 36415; 80048; 85025; 97110; 97116; 97162; 97166; 97530; 97535; 97802; 99406

== ENCOUNTER 2018-01-04 14:00 | Outpatient (RCR) | payer MEDICARE, MEDICAID, SELFPAY ==
--- NOTE | 2017-12-13 15:00 | HP.PTEVAL_ITS ---
Patient's Visit Information GOOD RUBIO is a 52 year old M referred to Physical Therapy by Gage Carrion with a diagnosis of Lumbar. Date of Evaluation: 12/13/17 Physical Therapist: Xiomy Hamm - Visit Plan Frequency: 2x /Week Duration: 4 Weeks Plan: Focus on core s/s- pain management-possible extension bias - Subjective Subjective: Patient reports he has always had twinges in his back due to his CP but the back is getting worse. Over the past 3-6 months its gotten worse. Was packing and cleaning to move to another apt and now his back is worse. Sat down on the toilet and had a hard time getting back up- was in the hospital for 2 weeks- went home on 12/06. Was in TCU for awhile. Hard to get in/out of the car. Left leg is weaker than the right. Lives with his son- they can help as needed. Was fully I before this happened-drives. Has gotten back to driving. Pain at its worst: 7/10 Agg: everything makes it worse Eases: changing positions- lying or standing. CP makes it hard to stand for long periods of time. Best: 0/10. Describes pain as dull and achy- but when he moves it can take his breathe away. Pain was running down his legs at the hosptial but not now. Having a hard time putting on his socks/shoes and bending forwards. Sleep : does not wake him- side or belly sleeper. MRI and x-rays taken. Has been having problems with bowel movements. No N/T in the toes. PMHx/Meds: no changes. - Objective Posture: FH, RS, Increased kyphosis. Gait: antalgic- ambulates on tip toes- CP - saggital plane gait classification secondary to LE spasticity- poor control of the trunk. HR/TR: able to heel raise but unable to toe raise. ROM: Lumbar flexion/SB to the right increase pain- Flexion: hands to mid thigh, other motions WNL. Strength: Core: poor, Hip: 4/5 Knee/Ankle: 5/5. Tone: spasticity in bilateral LE. Palpation: tender from paraspinals and SP from thoracic and lumbar spine. Sensation: WNL. Prone lying decreases symptoms but press ups increase s/s - Goals Goal 1:: Patient will be I with HEP and progression Goal Time Frame: 4-6 Weeks Goal 2:: Patient will maintain proper posture t/o session to demo increased core s/s Goal Time Frame: 4-6 Weeks Goal 3:: Patient will report 0/10 pain for 1 week Goal Time Frame: 4-6 Weeks Goal 4:: Patient will be able to dress himself for 1 week with 0/10 pain Goal Time Frame: 4-6 Weeks - Rehabilitation Potential Physical Therapy Diagnosis: Patient presents with hypomobility- he has decreased ROM, strength and muscular endurance leading to poor posture and increased pain with ADL's. Rehabilitation Potential: Fair - Anticipated Interventions Patient/Client Instruction: Educate patient on: Benefits of Fitness Program For the Purpose of:: To improve ability to perform ADL's Therapeutic Exercise to Include: Strength training, Endurance training, Balance training, Body mechanics, Postural training, Flexibilty training, Gait and locomotor training, Dynamic Lumbar Stabilization For the Purpose of:: To improve muscle performance and motor function TENS: Yes Cryotherapy (ice pack, ice massage): Yes Thermo therapy (hot pack): Yes Ultrasound (thermal/non thermal): Yes For the Purpose of:: To decrease pain Thank you for the opportunity to evaluate your patient. For Medicare and Medicare HMO plans, please review the plan of care and approve it. It will need to be FAXED BACK to us at [phone] for Medicare purposes. Please let me know if there are questions or concerns regarding this plan of care. Physician Signature: Date:
--- NOTE | 2018-04-02 14:19 | HP.PT.NRP ---
HP - Discharge Summary (1) - Patient Information GOOD RUBIO was seen in my office for initial evaluation on 12/13/17. The following Plan of Care was established for this patient: Initial Frequency: 2x /Week Initial Duration: 4 Weeks - Anticipated Interventions Patient/Client Instruction: Educate patient on: Benefits of Fitness Program For the Purpose of:: To improve ability to perform ADL's Therapeutic Exercise to Include: Strength training, Endurance training, Balance training, Body mechanics, Postural training, Flexibilty training, Gait and locomotor training, Dynamic Lumbar Stabilization For the Purpose of:: To improve muscle performance and motor function TENS: Yes Cryotherapy (ice pack, ice massage): Yes Thermo therapy (hot pack): Yes Ultrasound (thermal/non thermal): Yes For the Purpose of:: To decrease pain This patient was last seen in our office . Pertinent comments regarding their Physical therapy will appear below: Patient is appropriate for d/c has not returned for 60 days. At this point I will be discontinuing this patient from physical therapy. I would be happy to see this patient again in the future if found appropriate by the physician. Thank you! Xiomy Hamm
== END 2018-01-04 19:00 | disposition home or self-care (01) ==
LOC: PT 14:00
PROVIDERS: Family Provider Family Medicine; PCP Family Medicine; Visit Provider Family Medicine Geriatric Medicine
DX: M48.00 Spinal stenosis, site unspecified (principal); M54.5 Low back pain
CPT/HCPCS: 97110; 97162

== ENCOUNTER 2018-03-06 17:58 | Inpatient (IN) | payer MEDICARE, MEDICAID, SELFPAY ==
[2018-03-06 17:59] VITALS: BP 157/87; PULSE 86; RESP 19; TEMP 37.2; O2SAT 98; BMI 34.9
--- NOTE | 2018-03-06 18:29 | ED.VISSUMM ---
- ER Visit Summary Date of Service: 03/06/18 Chief Complaint: Back pain History of Present Illness: The patient is a 52 M who presents with back pain that has been getting progressively worse over the past 2 weeks. Patient states she was recently admitted to the TCU here. Patient states when he was discharged from there he was instructed to do exercises at home. Patient states he has been unable to do the exercises at home because his son will help him with those. Patient states the pain has been getting progressively worse. Patient denies any trauma or injury. Patient states the pain is over the lower lumbar area. Patient states the pain is worse with certain movements. Patient denies any paresthesias or weakness. Patient denies any radiation of the pain. Patient denies any bowel or bladder changes. Patient denies any saddle anesthesia. Physical Examination: Vital signs are stable. Patient is afebrile. Patient is in no acute distress. Musculoskeletal exam reveals tenderness and spasm of the lumbar paraspinal muscles. There is no bony crepitance or step-off noted. Range of motion was limited in all motions of the lumbar spine secondary to pain. Strength is 5/5 bilateral in the upper and lower extremities. There are no sensory deficits noted. Deep tendon reflexes are 2+/4 bilaterally. The remaining physical exam is within normal limits. Emergency Department Course and Treatment: Patient was given injections of morphine and Norflex here. Patient was given a dose of prednisone. Patient had no improvement with this. She was requesting to be admitted to the TCU again for further therapy. Case was discussed with Dr. Cross. He will be in to evaluate the patient. Patient will be admitted to his service. Patient understood and was agreeable with the plan. All questions were answered. Disposition: Admit to hospital Impression: Intractable low back pain This note was generated with [employer] dictation software. It may contain incorrect words, spelling, and punctuation that were not noted in review of the chart prior to signing ED Disposition - Plan for ED Patient: Disposition: Acute Care Hospital [facility] Chief Complaint: Back Diagnosis: Intractable low back pain Referrals: Sai Cobian MD [Primary Care Provider] -
[2018-03-06] MEDS: morphine 10 MG/ML Syringe SC (18:41)
[2018-03-06] MEDS: Orphenadrine 60 MG/2 ML Ampul IM (18:41)
[2018-03-06] MEDS: predniSONE 20 MG Tablet 60 MG PO (18:41)
[2018-03-06 20:32] LABS: Absolute Lymphocyte Count 1.17 X10^3/ul (0.83-4.51); Absolute Neutrophil Count 7.1 X10^3/uL (2.0-7.7); Basophil# 0.02 X10^3/uL; Basophil% 0.2 % (0-1); Eosinophil# 0.08 X10^3/uL; Eosinophils% 0.9 % (0-5); Hematocrit 44.5 % (40-54); Hemoglobin 14.8 g/dl (13.0-16.5); Lymphocyte # 1.17 X10^3/ul (4.0); Lymphocyte % 12.9 % (19-41); Mean Corp Hgb Conc 33.3 g/gl (32-36); Mean Corpuscular Volume 96.3 fL (80-94); Mean Platelet Vol. 10.9 fl (6.2-12.0); Monocyte# 0.69 X10^3/uL; Monocyte% 7.6 % (0-10); Neutrophil # 7.09 X10^3/uL (2.7-7.7); Neutrophil % 78.2 % (47-70); Platelet Count 210 K/mm3 (150-450); RBC Distribution Width CV 13.6 % (11.6-14.6); RBC Distribution Width SD 47.4 fl (35.1-43.9); Red Blood Count 4.62 M/mm3 (4.6-6.2); White Blood Count 9.1 K/mm3 (4.4-11.0)
[2018-03-06 20:36] LABS: POSITIVE COUNT NO; POSITIVE DIFFERENTIAL NO; POSITIVE MORPHOLOGY NO
[2018-03-06 20:43] LABS: Anion Gap 5 (5-15); BUN 14 mg/dL (7-18); BUN/Creat Ratio 12.4 RATIO (10-20); Calcium,Total 8.7 mg/dL (8.5-10.1); Chloride 106 mmol/L (98-107); Creatinine, Serum 1.13 mg/dL (0.70-1.30); EST Glomerular Filtration Rate 73 mL/min (>60); Est Glom Filt Rate - Afr Amer 88 mL/min (>60); Estimated Creatinine Clearance 68.03 ml/min; Glucose 109 mg/dL (74-106); Potassium 4.2 mmol/L (3.5-5.1); Sodium Level 139 mmol/L (136-145)
--- NOTE | 2018-03-06 20:50 | PCM.HP.STD ---
Problem List (1) GERD (gastroesophageal reflux disease) Status: Chronic (2) Multilevel spinal canal stenosis Status: Chronic (3) Intractable low back pain Status: Acute (4) Hypothyroidism Status: Chronic (5) Anxiety Status: Chronic (6) Depression Status: Chronic History of Present Illness Date of Admission: 03/06/18 Chief Complaint: Severe back pain and unable to move The patient is a 52 year old M with history of chronic back pain with last admission in November 2017 for which he was transferred to TCU came to ER with progressively getting worse back pain lumbosacral region. Patient also had about 3 falls in the last 2-3 weeks. He ran out of back pain medications including Flexeril, and diclofenac. He describes back pain as 10/10 intensity, and lower lumbar region with radiation to both thighs evenly. He denies weakness, numbness or tingling lower extremities. He had MRI in November 2017 reported as probable reactivity spondylosis or bone bruise in the L2 and L3 vertebral bodies with multilevel central and lateral spinal stenosis and multilevel broad-based disc protrusions. At home, after discharge he was using cane but currently is not using it and he is not able to move around or take care of himself. Past Medical History Past Medical History (Chronic Problems): Chronic Problems GERD (gastroesophageal reflux disease) (Chronic) Multilevel spinal canal stenosis (Chronic) Hypothyroidism (Chronic) Anxiety (Chronic) Depression (Chronic) Allergies No Known Allergies Allergy (Verified 03/06/18 17:59) Home Medications: Ambulatory Orders Medication Instructions Recorded Citalopram [Celexa] 40 mg PO DAILY 05/21/16 Levothyroxine [Synthroid] 175 mcg PO DAILY 05/21/16 Lorazepam [Ativan] 1 mg PO BID PRN #4 tab 11/25/17 Acetaminophen [Tylenol] 1,000 mg PO Q8H PRN PRN tablet 12/05/17 Calcium Carbonate [Tums] 500 mg PO Q4H PRN PRN tablet 12/05/17 Cyclobenzaprine [Flexeril] 10 mg PO TID PRN PRN #90 tab 12/05/17 Diclofenac [Voltaren] 50 mg PO BID PRN #30 tab 12/05/17 Omeprazole [Prilosec] 20 mg PO DAILY@0800 capsule 12/05/17 Surgical History: tonsillectomy Psychiatric History: Anxiety, Depression Smoking Status: Current every day smoker - *Family History Maternal History Items: No pertinent history Paternal History Items: No pertinent history Review of Systems Constitutional: Denies: Chills, Fever, Weight Change HEENT: Denies: Head Aches, Sinus Congestion, Sinus Drainage Cardiovascular: Denies: Chest Pain, Palpitations Respiratory: Denies: Cough, Shortness of breath at rest, Sputum production Gastrointestinal: Denies: Abdominal Pain, Nausea, Vomiting Genitourinary: Denies: Dysuria Musculoskeletal: Reports: Back Pain, Joint Pain, Joint Tenderness, Muscle pain Skin: Denies: Rash, Wounds Neurological: Denies: Numbness, Tingling, Focal weakness Psychiatric: Denies: Anxiety, Depression, Homicidal Ideations, Suicidal Ideations Hematologic/ Lymphatic: Denies: Easy Bruising, Easy Bleeding VTE Information - Inpt Only VTE Present on Admission: No VTE Mechan Device Prophylaxis: None VTE Pharm Prophylaxis ordered?: Yes - Physical Exam General: Alert, Oriented x3, Cooperative HEENT: Atraumatic, PERRLA, EOMI, Normocephalic Neck: Supple, No JVD, Negative Carotid Bruits Lungs: Clear to auscultation, No rhonchi, No wheeze, Diminished Cardiovascular: Regular rate, Regular Rhythm, Normal S1, Normal S2, No murmurs Abdomen: Bowel Sounds Present, Soft, Non Tender Extremities: No edema, Capillary Refill Less than 3 Seconds Skin: No rashes, No breakdown Musculoskeletal: Arthritic Changes, Tenderness - Tenderness present on lumbar spine and paraspinal muscle. SLR test positive Neurological: Cranial nerves II-XII grossly intact, Neuro grossly intact Psych/Mental Status: Normal Affect, Appropriate Vital Signs Temp Pulse Resp BP Pulse Ox 98.9 F 86 19 H 157/87 H 98 03/06/18 17:59 03/06/18 17:59 03/06/18 17:59 03/06/18 17:59 03/06/18 17:59 Weight: 210 lb Body Mass Index (BMI) 34.9 Laboratory Tests Past 24 Hrs 03/06/18 03/06/18 20:15 20:15 WBC 9.1 RBC 4.62 Hgb 14.8 Hct 44.5 MCV 96.3 H MCH 32.0 MCHC 33.3 RDW 13.6 RDW Differential 47.4 H Plt Count 210 MPV 10.9 Immature Gran % (Auto) 0.200 Neut % (Auto) 78.2 H Lymph % (Auto) 12.9 L [place] % (Auto) 7.6 Eos % (Auto) 0.9 Baso % (Auto) 0.2 Absolute Neuts (auto) 7.1 Absolute Lymphs (auto) 1.17 Total Counted Not Reportable Sodium 139 Potassium 4.2 Chloride 106 Carbon Dioxide 28.0 Anion Gap 5 BUN 14 Creatinine 1.13 Estim Creat Clear Calc 68.03 Est GFR (MDRD) Af Amer 88 Est GFR (MDRD) Non-Af 73 BUN/Creatinine Ratio 12.4 Glucose 109 H Calcium 8.7 Assessment/Plan All Active Problems Intractable low back pain (Acute) The patient is a 52 year old M with history of chronic back pain with last admission in November 2017 for which he was transferred to TCU came to ER with progressively getting worse back pain lumbosacral region. Patient also had about 3 falls in the last 2-3 weeks. He ran out of back pain medications including Flexeril, and diclofenac. He describes back pain as 10/10 intensity, and lower lumbar region with radiation to both thighs evenly. He denies weakness, numbness or tingling lower extremities. Patient got morphine and orphenadrine but not much relief in ER. He had MRI in November 2017 reported as probable reactivity spondylosis or bone bruise in the L2 and L3 vertebral bodies with multilevel central and lateral spinal stenosis and multilevel broad-based disc protrusions. 1. Intractable back pain most probably secondary to lumbar paraspinal muscle spasm with history of spondylosis, spinal stenosis and multilevel degenerative disc protrusion: Patient is being admitted in observation on regular [facility] floor. Started on 1 dose Toradol, diclofenac from tomorrow, Flexeril. Oxycodone and morphine respectively as needed for moderate to severe pain. PT and OT evaluation for need for SNF. 2. Lumbar spinal disc degenerative disease with multilevel spinal canal and foraminal stenosis: 3. Other comorbidities include hypothyroidism, GERD, anxiety and depression: Home medication reconciliation done. DVT prophylaxis: On heparin 5000 SQ twice daily. This note was generated with [employer] software. Every effort was made to ensure accuracy, however computerized director of strategic communications mistakes may persist. Code Visit OBSV E&M: 74890 Initial observation care L3
[2018-03-06 20:53] VITALS: BP 122/74; PULSE 75; RESP 18; TEMP 37.3; O2SAT 96
[2018-03-06 21:25] VITALS: BMI 37.4
[2018-03-06 21:44] VITALS: BP 142/89; PULSE 63; RESP 18; TEMP 36.8; O2SAT 97
[2018-03-06] MEDS: 0.9% Normal Saline 1,000 ML 75 ML IV (21:54)
[2018-03-06] MEDS: Heparin Injection (Vial) 5,000 UNIT/ML VIAL 5000 UNIT SC (21:55)
[2018-03-06] MEDS: Ketorolac 30 MG/ML Syringe IV (21:55)
[2018-03-07] MEDS: oxyCODONE 5 MG Tablet PO ×5 (02:16→22:07)
[2018-03-07 03:25] VITALS: BP 125/73; PULSE 69; RESP 18; TEMP 36.8; O2SAT 98
[2018-03-07] MEDS: Levothyroxine 175 MCG Tablet PO (06:14)
[2018-03-07 07:56] VITALS: BP 142/84; PULSE 67; RESP 18; TEMP 36.8; O2SAT 98
[2018-03-07] MEDS: Citalopram 40 MG TABLET PO (08:02)
[2018-03-07] MEDS: Pantoprazole Sodium 40 MG Tablet PO (08:02)
--- NOTE | 2018-03-07 08:56 | CASEMGMT ---
Addendum entered by Desirae Diggs 03/07/18 09:11: Pt did also state that he is very depressed and having increased anxiety due to his back issues. Pt is still taking Celexa. Pt denies being suicidal at this time. Pt explains that he used to be independent and is not now, this is difficult for him. SW offered support to pt. DEYA Salmon, DETHISTLER OPERATOR Original Note: See assessment. SW met w/pt in room in regard to discharge plan. Pt explains is not able to care for himself at this time, and is in a lot of pain. Pt recently moved, and has not been able to unpack any of the boxes. Pt lives w/his son, states his son is not really able to help pt. Son will cook and do some cleaning, but other than that is not able to help. Pt states son is 27 and has ADHD, pt wonders if this is why son is unable to assist. Pt reports to have two other children, one daughter is helpful. SW and pt discussed discharge options, SW explained the Medicare regulation for SNF admission, and that SW will need to speak w/physician regarding how long pt will need to be here, if he will qualify for SNF under Medicare. Pt states cannot afford to private pay. SW discussed w/pt applying for Medicaid, pt thinks he is over income for this. SW explained that if detention is needed, the income is higher and he may qualify. Pt states understanding. Pt states he had a good experience here in TCU, but also looked at [facility] and thinks they have a good program. SW explained will speak w/the physician regarding how long pt will be here, and then we can proceed with what will be appropriate for placement, and apply for Medicaid if needed. Pt states understanding. SW will continue to follow. DEYA Salmon, DETHISTLER OPERATOR
[2018-03-07] MEDS: Heparin Injection (Vial) 5,000 UNIT/ML VIAL 5000 UNIT SC ×2 (09:30→21:14)
--- NOTE | 2018-03-07 12:09 | CASEMGMT ---
Addendum entered by Desirae Diggs 03/07/18 12:58: SW left a message for Catie in rehab, waiting for a call back. Pt asleep at this time, SW will speak w/pt once he wakes up. DEYA Salmon, RETORT CONDENSER ATTENDANT Original Note: SW spoke w/pt in the room again regarding options, as it is unlikely pt will be here long enough under Medicare to qualify for SNF. SW explained that as per PT/OT, pt may be a candidate for our rehab unit here. SW explained the rehab unit to pt, the therapy he would receive and the Medicare coverage. Pt asked then about [facility], this is where he called, not [facility], and was told that they know how to treat patients w/CP. SW explained can call, and can also see if they take pending Medicaid as pt would need to go there under pending Medicaid most likely. Pt's income is $1150/month so pt would likely qualify for Medicaid for snf. Pt is not sure what he would like to do, needs more information. Pt agreeable for SW to make a referral to rehab, and to call [facility]. SW explained that rehab would likely be well versed in CP, the caregivers non medical is a neurologist. SW explained will find out additional information and let pt know. SW called [facility], spoke w/Leni. They can take patients with CP but this is not a specialty. Also, they cannot take pt with pending Medicaid. Message left in rehab, Catie is out of the building but will be back shortly. SW will speak w/Catie when she returns about this referral. DEYA Salmon, RETORT CONDENSER ATTENDANT
[2018-03-07 13:36] VITALS: BP 121/73; PULSE 59; RESP 18; TEMP 36.9; O2SAT 97
--- NOTE | 2018-03-07 13:57 | PCM.PN.HOSP ---
Patient Problems: Active and Suspected Problems Intractable low back pain (Acute) Subjective: Patient is a 52-year-old gentleman with history of chronic back pain who presented with acute exacerbation 03/07/2018: Patient seems to complains of intractable low back pain and difficulty with ambulation an MRI of the lumbar spine ordered for subsequent evaluation Objective: GENERAL: cooperative . HEENT: Clear conjunctiva, NECK; supple, normal thyroid, CHEST: Diminished to auscultation bilaterally, HEART: Regular S1 S2, no audible murmurs ABDOMEN: soft, non-tender, normoactive bowel sounds, RECTAL: deferred EXTREMITIES: No edema, no clubbing, no cyanosis. CONSERVATION OR HERITAGE ARCHITECT: Awake; oriented to place and person SKIN: No Rash Vitals/I&O's: Vital Signs Temp Pulse Resp BP Pulse Ox 98.4 F 59 L 18 121/73 H 97 03/07/18 13:36 03/07/18 13:36 03/07/18 13:36 03/07/18 13:36 03/07/18 13:36 Oxygen Delivery Method Room Air Weight: 102 kg Body Mass Index (BMI) 37.4 Intake and Output for Last 24 Hours 03/05/18 03/06/18 03/07/18 23:59 23:59 23:59 Intake Total 2193 / 2193 Balance 2193 / 2193 Current Medications Acetaminophen (Tylenol) 650 mg PO Q6H PRN PRN PRN Reason: Mild Pain (scale 0-3)/T>100.7 Al Hydroxide/Mg Hydroxide (Mylanta Ii) 30 ml PO Q6H PRN PRN PRN Reason: Gastric burning Citalopram Hydrobromide (Celexa) 40 mg PO DAILY [facility] Last Admin: 03/07/18 08:02 Dose: 40 mg Cyclobenzaprine HCl (Flexeril) 10 mg PO TID [facility] Last Admin: 03/07/18 13:42 Dose: 10 mg Diclofenac Sodium (Voltaren) 50 mg PO BIDCM [facility] Stop: 03/09/18 17:01 Last Admin: 03/07/18 08:02 Dose: 50 mg Diclofenac Sodium (Voltaren) 50 mg PO BIDCM PRN Heparin Sodium (Porcine) (Heparin Na) 5,000 unit SC Q12 [facility] Last Admin: 03/07/18 09:30 Dose: 5,000 unit Levothyroxine Sodium (Synthroid) 175 mcg PO DAILY@0600 [facility] Last Admin: 03/07/18 06:14 Dose: 175 mcg Lorazepam (Ativan) 1 mg PO BID PRN PRN PRN Reason: ANXIETY Magnesium Hydroxide (Milk Of Magnesia) 30 ml PO DAILY PRN PRN PRN Reason: Constipation Morphine Sulfate () 1 - 2 mg IV Q4H PRN PRN PRN Reason: SEVERE PAIN (6-10/10) Ondansetron HCl (Zofran) 4 mg IV Q8H PRN PRN PRN Reason: NAUSEA Oxycodone HCl (Oxyir) 5 mg PO Q4H PRN PRN PRN Reason: Moderate Pain (pain scale 4-5) Last Admin: 03/07/18 13:42 Dose: 5 mg Pantoprazole Sodium (Protonix) 40 mg PO DAILY@0800 [facility] Last Admin: 03/07/18 08:02 Dose: 40 mg Senna/Docusate Sodium (Senokot-S, Rosalba-Colace) 2 tablet PO BID PRN PRN PRN Reason: Constipation Sodium Chloride () 5 - 30 ml IV UD PRN PRN Reason: SALINE FLUSH Zolpidem Tartrate (Ambien (Generic)) 5 mg PO QHS PRN PRN PRN Reason: INSOMNIA Medical Necessity - Tobacco Use Smoking Status: Current every day smoker Assessment/Plan All Active Problems Intractable low back pain (Acute) Patient is a 52-year-old gentleman with history of chronic back pain who presented with acute exacerbation 1. Acute intractable low back pain patient has been admitted to regular nursing floor for symptom management. Review of his worsening pain and MRI of the lumbar spine was ordered for subsequent evaluation. 2. Physical debility secondary to above requested for PT OT eval and social studies department chair to assist with discharge planning 3. Morbid obesity with BMI of 37.4 lifestyle modification including weight loss advised 4. Obstructive sleep apnea patient uses CPAP at night 5. Hypothyroidism-patient is on levothyroxine home dose continued 6. Depression with anxiety 7. GERD 8. DVT prophylaxis SC Heparin. Active Medications Acetaminophen (Tylenol) 650 mg PO Q6H PRN PRN PRN Reason: Mild Pain (scale 0-3)/T>100.7 Al Hydroxide/Mg Hydroxide (Mylanta Ii) 30 ml PO Q6H PRN PRN PRN Reason: Gastric burning Citalopram Hydrobromide (Celexa) 40 mg PO DAILY [facility] Last Admin: 03/07/18 08:02 Dose: 40 mg Cyclobenzaprine HCl (Flexeril) 10 mg PO TID [facility] Last Admin: 03/07/18 13:42 Dose: 10 mg Diclofenac Sodium (Voltaren) 50 mg PO BIDCM [facility] Stop: 03/09/18 17:01 Last Admin: 03/07/18 08:02 Dose: 50 mg Diclofenac Sodium (Voltaren) 50 mg PO BIDCM PRN Heparin Sodium (Porcine) (Heparin Na) 5,000 unit SC Q12 [facility] Last Admin: 03/07/18 09:30 Dose: 5,000 unit Levothyroxine Sodium (Synthroid) 175 mcg PO DAILY@0600 [facility] Last Admin: 03/07/18 06:14 Dose: 175 mcg Lorazepam (Ativan) 1 mg PO BID PRN PRN PRN Reason: ANXIETY Magnesium Hydroxide (Milk Of Magnesia) 30 ml PO DAILY PRN PRN PRN Reason: Constipation Morphine Sulfate () 1 - 2 mg IV Q4H PRN PRN PRN Reason: SEVERE PAIN (6-10/10) Ondansetron HCl (Zofran) 4 mg IV Q8H PRN PRN PRN Reason: NAUSEA Oxycodone HCl (Oxyir) 5 mg PO Q4H PRN PRN PRN Reason: Moderate Pain (pain scale 4-5) Last Admin: 03/07/18 13:42 Dose: 5 mg Pantoprazole Sodium (Protonix) 40 mg PO DAILY@0800 [facility] Last Admin: 03/07/18 08:02 Dose: 40 mg Senna/Docusate Sodium (Senokot-S, Rosalba-Colace) 2 tablet PO BID PRN PRN PRN Reason: Constipation Sodium Chloride () 5 - 30 ml IV UD PRN PRN Reason: SALINE FLUSH Zolpidem Tartrate (Ambien (Generic)) 5 mg PO QHS PRN PRN PRN Reason: INSOMNIA # Code Visit Inpatient E&M: 28737 Subs Hosp L3 OBSV E&M: 10060 Observ/hosp same date L3
--- NOTE | 2018-03-07 14:06 | CASEMGMT ---
SW received a message from Catie in rehab inquiring the plan for pt's back pain, as this will help determine whether or not pt will be admitted into rehab. SW spoke w/Dr. Johnson, he ordered an MRI for pt. SW let Catie in rehab know, and will follow up w/her tomorrow regarding pt and the rehab referral. SW spoke w/pt in the room. SW explained that [facility] does not specialize in CP, and they also cannot take pt w/pending Medicaid. Pt states he was told by someone at [facility] they could take him for 20 days. SW again explained the Medicare regulation of being in the hospital 3 midnights as an inpt in order for Medicare to cover, and that the person he spoke w/at [facility] may not have been aware that pt may not be here long enough to get a qualifying stay. Pt confirmed he called from home and told the person he spoke with that he may come to the hospital. SW explained to pt again that this person may not have been aware of the Medicare regulation. SW explained that rehab is not certain yet if they can take him, it will depend on the MRI most likely. Pt states understanding. Pt would like to stay here if they will take him, pt states he wants to get better and will do whatever is needed to get better. SW explained will follow up w/pt tomorrow. DEYA Salmon, BRAZING MACHINE TENDER
[2018-03-07 17:37] VITALS: BP 97/50; PULSE 60; RESP 18; TEMP 36.8; O2SAT 96
[2018-03-07 21:53] VITALS: BP 106/65; PULSE 60; RESP 16; TEMP 36.7; O2SAT 98
[2018-03-07] MEDS: LORazepam 1 MG Tablet PO (22:07)
[2018-03-07] MEDS: Senna/Docusate Sodium 1 Tablet 2 TABLET PO (22:37)
[2018-03-08 02:30] VITALS: BP 120/66; PULSE 54; RESP 16; TEMP 36.6; O2SAT 99
[2018-03-08] MEDS: Levothyroxine 175 MCG Tablet PO (05:31)
[2018-03-08 08:30] VITALS: BP 125/83; PULSE 59; RESP 20; TEMP 36.4; O2SAT 98
--- NOTE | 2018-03-08 08:37 | MRI_ITS ---
STUDY: MRI LUMBAR SPINE WITH CONTRAST REASON FOR EXAM: Male, 52 years old. Low back pain TECHNIQUE: Standardized fat and water weighted pulse sequences were obtained in the sagittal and axial following I.V. administration of 10 ml of Gadavist contrast material. COMPARISON: Unenhanced study in March 07, 2018 FINDINGS: Comparison with prior study demonstrates that the focal areas of low signal intensity on the T1-weighted imaging sequence within the anterior-inferior aspect of the L2 and L3 vertebral bodies enhance following contrast administration. There is also contrast enhancement within the right sacral wing. These may be consistent with recent trauma. Inflammatory disease not likely. Neoplasm not entirely excluded. CT would be helpful for further assessment. MRI/Spine Lumbar WITH Contrast IMPRESSION: Focal nonspecific enhancement of the abnormal signal lesions in L2, L3 and right sacral wing. CT recommended for further assessment Electronically Signed: Ronald Hood MD at 16:14 EDT , Service support ,
--- NOTE | 2018-03-08 08:40 | PCM.PN.HOSP ---
Patient Problems: Active and Suspected Problems Intractable low back pain (Acute) Subjective: Patient's MRI demonstrated multilevel spinal stenosis secondary to bulging annuli and facet arthropathy most severe at L4-5 and L5-S1 greater on the left. It also did show Abnormal signal intensity within the L2 and L3 vertebral body possibly posttraumatic which MRI with contrast was recommended order placed on the morning of 03/08/2018 Objective: GENERAL: cooperative . HEENT: Clear conjunctiva, NECK; supple, normal thyroid, CHEST: Diminished to auscultation bilaterally, HEART: Regular S1 S2, no audible murmurs ABDOMEN: soft, non-tender, normoactive bowel sounds, RECTAL: deferred EXTREMITIES: No edema, no clubbing, no cyanosis. DRAWBENCH OPERATOR: Awake; oriented to place and person SKIN: No Rash Vitals/I&O's: Vital Signs Temp Pulse Resp BP Pulse Ox 98 F 54 L 16 120/66 99 03/08/18 02:30 03/08/18 02:30 03/08/18 02:30 03/08/18 02:30 03/08/18 02:30 Oxygen Delivery Method CPAP Intake and Output for Last 24 Hours 03/06/18 03/07/18 03/08/18 23:59 23:59 23:59 Intake Total 580 / 2773 500 / 500 Balance 580 / 2773 500 / 500 Current Medications Acetaminophen (Tylenol) 650 mg PO Q6H PRN PRN PRN Reason: Mild Pain (scale 0-3)/T>100.7 Al Hydroxide/Mg Hydroxide (Mylanta Ii) 30 ml PO Q6H PRN PRN PRN Reason: Gastric burning Citalopram Hydrobromide (Celexa) 40 mg PO DAILY [facility] Last Admin: 03/07/18 08:02 Dose: 40 mg Cyclobenzaprine HCl (Flexeril) 10 mg PO TID [facility] Last Admin: 03/08/18 05:31 Dose: 10 mg Diclofenac Sodium (Voltaren) 50 mg PO BIDCM [facility] Stop: 03/09/18 17:01 Last Admin: 03/07/18 17:41 Dose: 50 mg Diclofenac Sodium (Voltaren) 50 mg PO BIDCM PRN Heparin Sodium (Porcine) (Heparin Na) 5,000 unit SC Q12 [facility] Last Admin: 03/07/18 21:14 Dose: 5,000 unit Levothyroxine Sodium (Synthroid) 175 mcg PO DAILY@0600 [facility] Last Admin: 03/08/18 05:31 Dose: 175 mcg Lorazepam (Ativan) 1 mg PO BID PRN PRN PRN Reason: ANXIETY Last Admin: 03/07/18 22:07 Dose: 1 mg Magnesium Hydroxide (Milk Of Magnesia) 30 ml PO DAILY PRN PRN PRN Reason: Constipation Morphine Sulfate () 1 - 2 mg IV Q4H PRN PRN PRN Reason: SEVERE PAIN (6-10/10) Ondansetron HCl (Zofran) 4 mg IV Q8H PRN PRN PRN Reason: NAUSEA Oxycodone HCl (Oxyir) 5 mg PO Q4H PRN PRN PRN Reason: Moderate Pain (pain scale 4-5) Last Admin: 03/07/18 22:07 Dose: 5 mg Pantoprazole Sodium (Protonix) 40 mg PO DAILY@0800 [facility] Last Admin: 03/07/18 08:02 Dose: 40 mg Senna/Docusate Sodium (Senokot-S, Rosalba-Colace) 2 tablet PO BID PRN PRN PRN Reason: Constipation Last Admin: 03/07/18 22:37 Dose: 2 tablet Sodium Chloride () 5 - 30 ml IV UD PRN PRN Reason: SALINE FLUSH Zolpidem Tartrate (Ambien (Generic)) 5 mg PO QHS PRN PRN PRN Reason: INSOMNIA Medical Necessity - Tobacco Use Smoking Status: Current every day smoker Assessment/Plan All Active Problems Intractable low back pain (Acute) Patient is a 52-year-old gentleman with history of chronic back pain who presented with acute exacerbation 1. Acute intractable low back pain patient has been admitted to regular nursing floor for symptom management. iN VIEW of his worsening pain an MRI of the lumbar spine was ordered for subsequent evaluation. MRI demonstrated multilevel spinal stenosis secondary to bulging annuli and facet arthropathy most severe at L4-5 and L5-S1 greater on the left. It also did show Abnormal signal intensity within the L2 and L3 vertebral body possibly posttraumatic which MRI with contrast was recommended order placed on the morning of 03/08/2018 2. Physical debility secondary to above requested for PT OT eval and social media content manager to assist with discharge planning 3. Morbid obesity with BMI of 37.4 lifestyle modification including weight loss advised 4. Obstructive sleep apnea patient uses CPAP at night 5. Hypothyroidism-patient is on levothyroxine home dose continued 6. Depression with anxiety 7. GERD 8. DVT prophylaxis SC Heparin. Clinical Impression(s) from Imaging Studies Lumbar Spine MRI 03/07/18 13:46 IMPRESSION: Multilevel spinal stenosis secondary to bulging annuli and facet arthropathy most severe at L4-5 and L5-S1 greater on the left Abnormal signal intensity within the L2 and L3 vertebral body possibly posttraumatic however there are similar findings within the bilateral sacral wings and the right ilium possibly also post traumatic however cannot exclude neoplasm. Recommend correlation with clinical history and possibly repeat scan with contrast for further evaluation Electronically Signed: Ronald Hood MD at 16:47 EDT , Service support , Code Visit Inpatient E&M: 45205 Subs Hosp L2
[2018-03-08] MEDS: Heparin Injection (Vial) 5,000 UNIT/ML VIAL 5000 UNIT SC ×2 (08:51→22:44)
[2018-03-08] MEDS: Citalopram 40 MG TABLET PO (08:52)
[2018-03-08] MEDS: Pantoprazole Sodium 40 MG Tablet PO (08:52)
--- NOTE | 2018-03-08 08:56 | CASEMGMT ---
Addendum entered by Desirae Diggs 03/08/18 13:44: SW spoke w/Sruthi([phone]), pt's pending Medicaid # is [id number]. Sruthi asked to be called once it is known where pt is going. DEYA Salmon, PROFESSOR OF MECHANICAL ENGINEERING Original Note: Addendum entered by Desirae Diggs 03/08/18 13:36: Sruthi from [facility] called this SW and left a message that she has a pending Medicaid number, and to call her back. SW called her back and left a message requesting a return call. DEYA Salmon, PROFESSOR OF MECHANICAL ENGINEERING Original Note: Addendum entered by Desirae Diggs 03/08/18 10:17: SW spoke w/physician, it is not yet determined the plan for pt, will depend on the imaging from today. SW spoke w/pt, assisted pt in completing the Medicaid application. SW explained that this SW does not yet know if rehab will take pt, and if they will not, if pt does not qualify, pt may need to go to SNF under pending Medicaid. Pt states understanding. SW faxed Medicaid application to [facility]. SW will continue to follow. DEYA Salmon, PROFESSOR OF MECHANICAL ENGINEERING Original Note: SW spoke w/Catie in rehab, pt's acceptance into rehab will depend on what clinically is needed for pt. Further imaging is planned for today, SW will follow up as more information becomes available. DEYA Salmon, PROFESSOR OF MECHANICAL ENGINEERING
[2018-03-08] MEDS: oxyCODONE 5 MG Tablet PO ×3 (08:59→21:05)
[2018-03-08] MEDS: LORazepam 1 MG Tablet PO (12:05)
[2018-03-08 14:00] VITALS: BP 127/76; PULSE 79; RESP 20; TEMP 36.4; O2SAT 96
[2018-03-08 21:03] VITALS: BP 129/81; PULSE 71; RESP 18; TEMP 36.4; O2SAT 98
[2018-03-08] MEDS: 0.9% NaCl Peripheral Flush Adult/Peds IV (22:55)
[2018-03-09 04:00] VITALS: BP 123/78; PULSE 63; RESP 18; TEMP 36.7; O2SAT 100
[2018-03-09] MEDS: Levothyroxine 175 MCG Tablet PO (06:05)
[2018-03-09] MEDS: Magnesium Hydroxide 30 ML UDC PO (06:05)
[2018-03-09] MEDS: oxyCODONE 5 MG Tablet PO ×3 (08:02→16:24)
[2018-03-09] MEDS: Citalopram 40 MG TABLET PO (08:02)
[2018-03-09] MEDS: Pantoprazole Sodium 40 MG Tablet PO (08:02)
[2018-03-09] MEDS: Heparin Injection (Vial) 5,000 UNIT/ML VIAL 5000 UNIT SC ×2 (08:03→22:32)
[2018-03-09 08:05] VITALS: BP 130/76; PULSE 65; RESP 18; TEMP 36.6; O2SAT 96
--- NOTE | 2018-03-09 08:39 | PCM.PN.HOSP ---
Patient Problems: Active and Suspected Problems Intractable low back pain (Acute) Subjective: Patient seen currently rating his at 6 out of 10. MRI of the lumbar spine with contrast obtained the day prior results still pending called radiology to obtain results. Patient disposition will depend on results of MRI Objective: GENERAL: cooperative . HEENT: Clear conjunctiva, NECK; supple, normal thyroid, CHEST: Diminished to auscultation bilaterally, HEART: Regular S1 S2, no audible murmurs ABDOMEN: soft, non-tender, normoactive bowel sounds, RECTAL: deferred EXTREMITIES: No edema, no clubbing, no cyanosis. COSMETIC SALES CONSULTANT: Awake; oriented to place and person SKIN: No Rash Vitals/I&O's: Vital Signs Temp Pulse Resp BP Pulse Ox 98.1 F 63 18 123/78 H 100 03/09/18 04:00 03/09/18 04:00 03/09/18 04:00 03/09/18 04:00 03/09/18 04:00 Oxygen Delivery Method CPAP Intake and Output for Last 24 Hours 03/07/18 03/08/18 03/09/18 23:59 23:59 23:59 Intake Total 580 / 2773 740 / 740 375 / 375 Balance 580 / 2773 740 / 740 375 / 375 Current Medications Acetaminophen (Tylenol) 650 mg PO Q6H PRN PRN PRN Reason: Mild Pain (scale 0-3)/T>100.7 Al Hydroxide/Mg Hydroxide (Mylanta Ii) 30 ml PO Q6H PRN PRN PRN Reason: Gastric burning Citalopram Hydrobromide (Celexa) 40 mg PO DAILY [facility] Last Admin: 03/09/18 08:02 Dose: 40 mg Cyclobenzaprine HCl (Flexeril) 10 mg PO TID [facility] Last Admin: 03/09/18 06:05 Dose: 10 mg Diclofenac Sodium (Voltaren) 50 mg PO BIDCM [facility] Stop: 03/09/18 17:01 Last Admin: 03/09/18 08:02 Dose: 50 mg Diclofenac Sodium (Voltaren) 50 mg PO BIDCM PRN Heparin Sodium (Porcine) (Heparin Na) 5,000 unit SC Q12 [facility] Last Admin: 03/09/18 08:03 Dose: 5,000 unit Levothyroxine Sodium (Synthroid) 175 mcg PO DAILY@0600 [facility] Last Admin: 03/09/18 06:05 Dose: 175 mcg Lorazepam (Ativan) 1 mg PO BID PRN PRN PRN Reason: ANXIETY Last Admin: 03/08/18 12:05 Dose: 1 mg Magnesium Hydroxide (Milk Of Magnesia) 30 ml PO DAILY PRN PRN PRN Reason: Constipation Last Admin: 03/09/18 06:05 Dose: 30 ml Morphine Sulfate () 1 - 2 mg IV Q4H PRN PRN PRN Reason: SEVERE PAIN (6-10/10) Ondansetron HCl (Zofran) 4 mg IV Q8H PRN PRN PRN Reason: NAUSEA Oxycodone HCl (Oxyir) 5 mg PO Q4H PRN PRN PRN Reason: Moderate Pain (pain scale 4-5) Last Admin: 03/09/18 08:02 Dose: 5 mg Pantoprazole Sodium (Protonix) 40 mg PO DAILY@0800 [facility] Last Admin: 03/09/18 08:02 Dose: 40 mg Senna/Docusate Sodium (Senokot-S, Rosalba-Colace) 2 tablet PO BID PRN PRN PRN Reason: Constipation Last Admin: 03/07/18 22:37 Dose: 2 tablet Sodium Chloride () 5 - 30 ml IV UD PRN PRN Reason: SALINE FLUSH Last Admin: 03/08/18 22:55 Dose: 10 ml Zolpidem Tartrate (Ambien (Generic)) 5 mg PO QHS PRN PRN PRN Reason: INSOMNIA Medical Necessity - Tobacco Use Smoking Status: Current every day smoker Assessment/Plan All Active Problems Intractable low back pain (Acute) Patient is a 52-year-old gentleman with history of chronic back pain who presented with acute exacerbation 1. Acute intractable low back pain patient has been admitted to regular nursing floor for symptom management. iN VIEW of his worsening pain an MRI of the lumbar spine was ordered for subsequent evaluation. MRI demonstrated multilevel spinal stenosis secondary to bulging annuli and facet arthropathy most severe at L4-5 and L5-S1 greater on the left. It also did show Abnormal signal intensity within the L2 and L3 vertebral body possibly posttraumatic which MRI with contrast was recommended order placed on the morning of 03/08/2018: Results pending 2. Physical debility secondary to above requested for PT OT eval and social problems specialist to assist with discharge planning 3. Morbid obesity with BMI of 37.4 lifestyle modification including weight loss advised 4. Obstructive sleep apnea patient uses CPAP at night 5. Hypothyroidism-patient is on levothyroxine home dose continued 6. Depression with anxiety 7. GERD 8. DVT prophylaxis SC Heparin. Clinical Impression(s) from Imaging Studies Lumbar Spine MRI 03/07/18 13:46 IMPRESSION: Multilevel spinal stenosis secondary to bulging annuli and facet arthropathy most severe at L4-5 and L5-S1 greater on the left Abnormal signal intensity within the L2 and L3 vertebral body possibly posttraumatic however there are similar findings within the bilateral sacral wings and the right ilium possibly also post traumatic however cannot exclude neoplasm. Recommend correlation with clinical history and possibly repeat scan with contrast for further evaluation Electronically Signed: Ronald Hood MD at 16:47 EDT , Service support , Code Visit Inpatient E&M: 89607 Subs Hosp L2
--- NOTE | 2018-03-09 13:58 | CASEMGMT ---
Social Work Note SW placed a call to Catie with [facility] and left her a message informing her that Dr. Johnson is still awaiting results from pt's MRI to determine disposition for pt. Plan: TBD Awaiting results of MRI for Dr. Johnson to confirm disposition for pt's treatment Federica Tomlin MANAGER GRAPHIC, SCREW DOWN
[2018-03-09 14:15] VITALS: BP 125/82; PULSE 56; RESP 18; TEMP 36.5; O2SAT 95
[2018-03-09] MEDS: LORazepam 1 MG Tablet PO (14:16)
--- NOTE | 2018-03-09 15:44 | CASEMGMT ---
Addendum entered by Federica Tomlin 03/09/18 16:14: It should be noted that this worker made referral to TCU as in previous notes pt had mentioned that he liked it when he was at TCU and was ok with returning there if needed. Original Note: Social Work Note REBA Montoya updated this worker that Dr. Johnson is wanting to discharge pt to [facility] after results of MRI come back. KIZZY informed REBA Montoya that [facility] is not confirmed yet as they were waiting for results of MRI to determine disposition plan. KIZZY placed a call to Catie with [facility]. Catie states that she doesn't feel pt will be able to handle 3 hours of therapy a day and recommended TCU but she will need to check on Medicare Beds Available for pt. Catie states that pt used 10 Medicare Days and only has 10 available to use. KIZZY informed Catie that pt would need one more night for Medicare criteria. Catie states that she will call Audrey in TCU and give this worker a call back. Catie called this worker back and informed this worker that pt's Medicare days have started over and he has all 20 of his Medicare Days now and she is able to accept pt tomorrow on TCU. KIZZY informed Catie that it sounds like MRI results are not back yet. Catie asks that this worker call her tomorrow too update her on disposition plan for pt. If pt requires surgery for his back it is likely that he will be transferred out. KIZZY updated REBA Montoya of this. SW updated pt of this. Green sheet on chart. Plan: TCU tomorrow Federica Tomlin FURNACE CHECKER, CULINARY INSTRUCTOR
--- NOTE | 2018-03-09 16:30 | CT_ITS ---
CT/Spine Lumbar W/WO Contrast IMPRESSION: The areas of abnormal signal described on the MRI in the body of L3 and in the area of the right sacroiliac joint, do not show destructive lesions but rather increased density which is more consistent with a long-term degenerative process. Electronically Signed: Pedro Rodriguez MD at 17:32 EDT , Service support ,
[2018-03-09] MEDS: 0.9% NaCl Peripheral Flush Adult/Peds IV (22:39)
[2018-03-09 22:41] VITALS: BP 123/65; PULSE 55; RESP 18; TEMP 37.2; O2SAT 95
[2018-03-10] MEDS: Levothyroxine 175 MCG Tablet PO (06:26)
[2018-03-10 06:30] VITALS: BP 130/74; PULSE 53; RESP 18; TEMP 36.4; O2SAT 95
--- NOTE | 2018-03-10 08:13 | PCM.TXEXTCAR ---
- Routine Orders/Code Status Code Status: Full Code - Therapies Physical Therapy: Eval and Treat Occupational Therapy: Eval and Treat - Allergies/Procedures Done in Hospital Allergies/Adverse Reactions: Allergies No Known Allergies Allergy (Verified 03/06/18 17:59) - Type of Care/Length of Stay Estimated LOS: Convalescent Care Less Than 30 days Type of Care Needed: Skilled Rehab Potential: Good Prognosis: Good - Additional Orders/Day of Discharge Day of Discharge: 03/10/18 - Follow Up Care Primary Care Physician: Sai Cobian MD [Primary Care Provider] -
[2018-03-10 08:18] VITALS: BP 130/82; PULSE 55; RESP 18; TEMP 36.8; O2SAT 94
--- NOTE | 2018-03-10 08:21 | PCM.DC.SUM ---
Discharge Date and Diagnosis - Problem List Patient Problems: Active and Suspected Problems Intractable low back pain (Acute) Date of Admission: 03/06/18 Date of Discharge: 03/10/18 - Primary Discharge Diagnosis Active and Suspected Problems Intractable low back pain (Acute) - Secondary Discharge Diagnosis Chronic Problems GERD (gastroesophageal reflux disease) (Chronic) Multilevel spinal canal stenosis (Chronic) Hypothyroidism (Chronic) Anxiety (Chronic) Depression (Chronic) Hospital Course and Treatment Imaging Results: Clinical Impression(s) from Imaging Studies Lumbar Spine MRI 03/07/18 13:46 IMPRESSION: Multilevel spinal stenosis secondary to bulging annuli and facet arthropathy most severe at L4-5 and L5-S1 greater on the left Abnormal signal intensity within the L2 and L3 vertebral body possibly posttraumatic however there are similar findings within the bilateral sacral wings and the right ilium possibly also post traumatic however cannot exclude neoplasm. Recommend correlation with clinical history and possibly repeat scan with contrast for further evaluation Electronically Signed: Ronald Hood MD at 16:47 EDT , Service support , Lumbar Spine MRI 03/08/18 08:37 IMPRESSION: Focal nonspecific enhancement of the abnormal signal lesions in L2, L3 and right sacral wing. CT recommended for further assessment Electronically Signed: Ronald Hood MD at 16:14 EDT , Service support , ADDENDUM: 03/09/[address] 03/09/18 16:30 IMPRESSION: The areas of abnormal signal described on the MRI in the body of L3 and in the area of the right sacroiliac joint, do not show destructive lesions but rather increased density which is more consistent with a long-term degenerative process. Electronically Signed: Pedro Rodriguez MD at 17:32 EDT , Service support , Operations: None Summary of Care Provided: Patient is a 52-year-old gentleman with history of chronic back pain who presented with acute exacerbation 1. Acute intractable low back pain patient has been admitted to regular nursing floor for symptom management. iN VIEW of his worsening pain an MRI of the lumbar spine was ordered for subsequent evaluation. MRI demonstrated multilevel spinal stenosis secondary to bulging annuli and facet arthropathy most severe at L4-5 and L5-S1 greater on the left. It also did show Abnormal signal intensity within the L2 and L3 vertebral body possibly posttraumatic which MRI with contrast was recommended order placed on the morning of 03/08/2018: CT demonstrated the following the areas of abnormal signal described on the MRI in the body of L3 and in the area of the right sacroiliac joint, do not show destructive lesions but rather increased density which is more consistent with a long-term degenerative process. Patient was subsequently discharged to a assisted facility for subsequent management 2. Physical debility secondary to above requested for PT OT eval and social sciences research scientist to assist with discharge planning 3. Morbid obesity with BMI of 37.4 lifestyle modification including weight loss advised 4. Obstructive sleep apnea patient uses CPAP at night 5. Hypothyroidism-patient is on levothyroxine home dose continued 6. Depression with anxiety 7. GERD 8. DVT prophylaxis SC Heparin. Discharge Diet: No Restrictions Discharge Activity: Return to Normal Activity Home Medications: Medications to take at Discharge Citalopram [Celexa] 40 mg PO DAILY 05/21/16 Levothyroxine [Synthroid] 175 mcg PO DAILY 05/21/16 Lorazepam [Ativan] 1 mg PO BID PRN #4 tab 11/25/17 Calcium Carbonate [Tums] 500 mg PO Q4H PRN PRN tablet 12/05/17 Cyclobenzaprine [Flexeril] 10 mg PO TID PRN PRN #90 tab 12/05/17 Diclofenac [Voltaren] 50 mg PO BID PRN #30 tab 12/05/17 Omeprazole [Prilosec] 20 mg PO DAILY@0800 capsule 12/05/17 Acetaminophen [Tylenol Tablet] 650 mg PO Q6H PRN PRN tablet 03/10/18 Heparin Injection (Vial) [Heparin Na] 5,000 unit SC Q12 vial 03/10/18 Mag Hydrox/Al Hydrox/Simeth [Mylanta II] 30 ml PO Q6H PRN PRN udc 03/10/18 Magnesium Hydroxide [Milk Of Magnesia] 30 ml PO DAILY PRN PRN udc 03/10/18 Oxycodone HCl/Acetaminophen [Percocet 5/325] 1 tab PO Q4H PRN PRN 5 Days #20 tab 03/10/18 Senna/Docusate Sodium [Senokot-S] 2 tablet PO BID PRN PRN tablet 03/10/18 Following Prescrptions Were Given to Patient: Oxycodone HCl/Acetaminophen [Percocet 5/325] 1 tab PO Q4H PRN PRN 5 Days #20 tab PRN Reason: Pain Primary Care Physician: Sai Cobian MD [Primary Care Provider] - Disposition: Intermediate facility Minutes spent on discharge:: 35 Patient Condition:: Stable Medical Necessity - Tobacco Use Smoking Status: Current every day smoker Meaningful Use Info Meaningful Use Diagnoses (Choose all that apply): None applicable Code Visit Inpatient E&M: 40756 Disch Hosp
[2018-03-10 08:22] VITALS: PULSE 60
[2018-03-10] MEDS: Heparin Injection (Vial) 5,000 UNIT/ML VIAL 5000 UNIT SC (08:33)
[2018-03-10] MEDS: oxyCODONE 5 MG Tablet PO (08:33)
[2018-03-10] MEDS: Citalopram 40 MG TABLET PO (08:34)
[2018-03-10] MEDS: Pantoprazole Sodium 40 MG Tablet PO (08:34)
[2018-03-10] MEDS: Acetaminophen 325 MG Tablet 650 MG PO (10:18)
--- NOTE | 2018-03-10 10:28 | NURSING ---
Report called to Barbara the nurse in TCU.
[2018-03-10 10:51] LABS: Bedside Glucose 146 mg/dL (70-110)
== END 2018-03-10 10:50 | disposition skilled nursing facility (03) | DRG 552 ==
LOC: ED 18:32 → MS2 20:55 → MS3 03-08 15:22
PROVIDERS: Admitting Provider Internal Medicine; Emergency Provider Emergency Medicine; Family Provider Family Medicine; PCP Family Medicine; Visit Provider Internal Medicine
DX: M54.5 Low back pain (principal); G89.29 Other chronic pain; Z68.37 Body mass index [BMI] 37.0-37.9, adult; E66.01 Morbid (severe) obesity due to excess calories; G47.33 Obstructive sleep apnea (adult) (pediatric); E03.9 Hypothyroidism, unspecified; F41.8 Other specified anxiety disorders; M48.061 Spinal stenosis, lumbar region without neurogenic claudication; K21.9 Gastro-esophageal reflux disease without esophagitis; M46.96 Unspecified inflammatory spondylopathy, lumbar region
CPT/HCPCS: 36415; 72133; 72148; 72149; 80048; 82962; 85025; 97110; 97116; 97162; 97166; 97530; 97535; 99281; A9585; J7030; Q9967; A4216

== ENCOUNTER 2018-03-10 11:00 | Inpatient (IN) | payer MEDICARE, SELFPAY ==
[2018-03-10 11:21] VITALS: BP 132/68; PULSE 60; PULSE 66; RESP 16; TEMP 36.7; O2SAT 94; BMI 38.1
--- NOTE | 2018-03-10 11:21 | NURSING ---
Pt admitted to room 9 from TCU via bed. Patient oriented to room and call light system explained.
--- NOTE | 2018-03-10 11:54 | PCM.HP.STD ---
Problem List (1) Obstructive sleep apnea Status: Chronic (2) GERD (gastroesophageal reflux disease) Status: Chronic (3) Multilevel spinal canal stenosis Status: Chronic (4) Intractable low back pain Status: Acute (5) Hypothyroidism Status: Chronic (6) Anxiety Status: Chronic (7) Depression Status: Chronic History of Present Illness Date of Admission: 03/10/18 Chief Complaint: Here for rehabilitation, strengthening, prior to discharge home with family. The patient is a 52 year old Male with below past medical history presented to [facility] 03/06/2018 with back pain. Progressively worse for 2 weeks. Unable to do exercises at home. Morphine, Norflex, Prednisone given without relief. 03/06/2018 Admit to Hospital. Toradol, Diclofenac, Flexeril, Oxycodone, Morphine for low back pain. 03/08/2018 MRI lumbosacral spine showed sacroiliitis, spinal stenosis, bulging discs, abnormal signal intensity lumbar region. 03/09/2018 CT lumbar spine showed chcf degenerative process, no neoplasm. 03/10/2018 Admit to TCU with debility, here for rehabilitation, strengthening, prior to discharge home with family. Past Medical History Past Medical History (Chronic Problems): Chronic Problems GERD (gastroesophageal reflux disease) (Chronic) Obstructive sleep apnea (Chronic) Multilevel spinal canal stenosis (Chronic) Hypothyroidism (Chronic) Anxiety (Chronic) Depression (Chronic) Allergies No Known Allergies Allergy (Verified 03/06/18 17:59) Home Medications: Ambulatory Orders Medication Instructions Recorded Citalopram [Celexa] 40 mg PO DAILY 05/21/16 Levothyroxine [Synthroid] 175 mcg PO DAILY 05/21/16 Lorazepam [Ativan] 1 mg PO BID PRN #4 tab 11/25/17 Calcium Carbonate [Tums] 500 mg PO Q4H PRN PRN tablet 12/05/17 Cyclobenzaprine [Flexeril] 10 mg PO TID PRN PRN #90 tab 12/05/17 Diclofenac [Voltaren] 50 mg PO BID PRN #30 tab 12/05/17 Acetaminophen [Tylenol Tablet] 650 mg PO Q6H PRN PRN tablet 03/10/18 Heparin Injection (Vial) [Heparin 5,000 unit SC Q12 03/10/18 Na] Mag Hydrox/Al Hydrox/Simeth 30 ml PO Q6H PRN PRN udc 03/10/18 [Mylanta II] Magnesium Hydroxide [Milk Of 30 ml PO DAILY PRN PRN 03/10/18 Magnesia] Omeprazole [Prilosec] 20 mg PO DAILY@0800 03/10/18 Oxycodone HCl/Acetaminophen 1 tab PO Q4H PRN PRN 5 Days #20 tab 03/10/18 [Percocet 5/325] Senna/Docusate Sodium [Senokot-S] 2 tablet PO BID PRN PRN tablet 03/10/18 Surgical History: tonsillectomy Psychiatric History: Anxiety, Depression Lives: With Family Smoking Status: Current every day smoker Tobacco Use: Cigarettes Alcohol: Heavy - 2-3beers daily. Drugs: None - *Family History Maternal History Items: No pertinent history Paternal History Items: No pertinent history Review of Systems Constitutional: Denies: Chills, Fever, Weight Change HEENT: Denies: Head Aches, Sinus Congestion, Sinus Drainage Cardiovascular: Denies: Chest Pain, Palpitations Respiratory: Denies: Cough, Shortness of breath at rest, Sputum production Gastrointestinal: Denies: Abdominal Pain, Nausea, Vomiting Genitourinary: Denies: Dysuria Musculoskeletal: Denies: Joint Pain, Joint Tenderness Skin: Denies: Rash, Wounds Neurological: Denies: Numbness, Tingling, Focal weakness Psychiatric: Denies: Anxiety, Depression, Homicidal Ideations, Suicidal Ideations Hematologic/ Lymphatic: Denies: Easy Bruising, Easy Bleeding VTE Information - Inpt Only VTE Present on Admission: No VTE Mechan Device Prophylaxis: Knee High KOKO Hose VTE Pharm Prophylaxis ordered?: Yes - Physical Exam General: Alert, Oriented x3, Cooperative HEENT: Atraumatic, PERRLA, EOMI, Normocephalic Neck: Supple, No JVD, Negative Carotid Bruits Lungs: Clear to auscultation, Normal air movement Cardiovascular: Regular rate, No murmurs Abdomen: Bowel Sounds Present, Soft, Non Tender Extremities: No edema, Capillary Refill Less than 3 Seconds Skin: No rashes, No breakdown Musculoskeletal: No Tenderness to Palpation of Joints or Extremities Neurological: Cranial nerves II-XII grossly intact Psych/Mental Status: Normal Affect, Appropriate Assessment/Plan All Active Problems Intractable low back pain (Acute) 52 year old male with below past medical history hospitalized for intractable low back pain, admitted to [facility] with debility, here for rehabilitation, strengthening, prior to discharge home with family. Debility - PT/OT. Pain - Tylenol 1000MG Q8H PRN mild pain, Oxycodone 5MG Q4H PRN severe pain. Bowel - Miralax 17GM daily, Senna/colace 2 tablets BID, Dulcolax 10MG PO daily PRN, Magnesium citrate 300ML PO x 1 dose. Pneumonia vaccination - Administer Prevnar 13 and/or Pnemovax 23 as necessary. DVT prophylaxis - Lovenox 40MG SC daily. GERD - Pantoprazole 20MG daily, TUMS 500MG Q4H PRN. Depression - Citalopram 40MG daily. Muscle spasm - Flexeril 10MG TID. Low back pain - Medrol dosepak, Diclofenac 50MG BID with food. Hypothyroidism - Levothyroxine 175MCG daily. Anxiety - Ativan 1MG BID PRN.
--- NOTE | 2018-03-10 11:58 | HP.PCM_ITS ---
Problem List (1) Obstructive sleep apnea Status: Chronic (2) GERD (gastroesophageal reflux disease) Status: Chronic (3) Multilevel spinal canal stenosis Status: Chronic (4) Intractable low back pain Status: Acute (5) Hypothyroidism Status: Chronic (6) Anxiety Status: Chronic (7) Depression Status: Chronic History of Present Illness Date of Admission: 03/10/18 Chief Complaint: Here for rehabilitation, strengthening, prior to discharge home with family. The patient is a 52 year old Male with below past medical history presented to [facility] Emergency Department 03/06/2018 with back pain. Progressively worse for 2 weeks. Unable to do exercises at home. Morphine, Norflex, Prednisone given without relief. 03/06/2018 Admit to Hospital. Toradol, Diclofenac, Flexeril, Oxycodone, Morphine for low back pain. 03/08/2018 MRI lumbosacral spine showed sacroiliitis, spinal stenosis, bulging discs, abnormal signal intensity lumbar region. 03/09/2018 CT lumbar spine showed detention degenerative process, no neoplasm. 03/10/2018 Admit to TCU with debility, here for rehabilitation, strengthening, prior to discharge home with family. Past Medical History Past Medical History (Chronic Problems): Chronic Problems GERD (gastroesophageal reflux disease) (Chronic) Obstructive sleep apnea (Chronic) Multilevel spinal canal stenosis (Chronic) Hypothyroidism (Chronic) Anxiety (Chronic) Depression (Chronic) Allergies No Known Allergies Allergy (Verified 03/06/18 17:59) Home Medications: Ambulatory Orders Medication Instructions Recorded Citalopram [Celexa] 40 mg PO DAILY 05/21/16 Levothyroxine [Synthroid] 175 mcg PO DAILY 05/21/16 Lorazepam [Ativan] 1 mg PO BID PRN #4 tab 11/25/17 Calcium Carbonate [Tums] 500 mg PO Q4H PRN PRN tablet 12/05/17 Cyclobenzaprine [Flexeril] 10 mg PO TID PRN PRN #90 tab 12/05/17 Diclofenac [Voltaren] 50 mg PO BID PRN #30 tab 12/05/17 Acetaminophen [Tylenol Tablet] 650 mg PO Q6H PRN PRN tablet 03/10/18 Heparin Injection (Vial) [Heparin 5,000 unit SC Q12 03/10/18 Na] Mag Hydrox/Al Hydrox/Simeth 30 ml PO Q6H PRN PRN udc 03/10/18 [Mylanta II] Magnesium Hydroxide [Milk Of 30 ml PO DAILY PRN PRN 03/10/18 Magnesia] Omeprazole [Prilosec] 20 mg PO DAILY@0800 03/10/18 Oxycodone HCl/Acetaminophen 1 tab PO Q4H PRN PRN 5 Days #20 tab 03/10/18 [Percocet 5/325] Senna/Docusate Sodium [Senokot-S] 2 tablet PO BID PRN PRN tablet 03/10/18 Surgical History: tonsillectomy Psychiatric History: Anxiety, Depression Lives: With Family Smoking Status: Current every day smoker Tobacco Use: Cigarettes Alcohol: Heavy - 2-3beers daily. Drugs: None - *Family History Maternal History Items: No pertinent history Paternal History Items: No pertinent history Review of Systems Constitutional: Denies: Chills, Fever, Weight Change HEENT: Denies: Head Aches, Sinus Congestion, Sinus Drainage Cardiovascular: Denies: Chest Pain, Palpitations Respiratory: Denies: Cough, Shortness of breath at rest, Sputum production Gastrointestinal: Denies: Abdominal Pain, Nausea, Vomiting Genitourinary: Denies: Dysuria Musculoskeletal: Denies: Joint Pain, Joint Tenderness Skin: Denies: Rash, Wounds Neurological: Denies: Numbness, Tingling, Focal weakness Psychiatric: Denies: Anxiety, Depression, Homicidal Ideations, Suicidal Ideations Hematologic/ Lymphatic: Denies: Easy Bruising, Easy Bleeding VTE Information - Inpt Only VTE Present on Admission: No VTE Mechan Device Prophylaxis: Knee High KOKO Hose VTE Pharm Prophylaxis ordered?: Yes - Physical Exam General: Alert, Oriented x3, Cooperative HEENT: Atraumatic, PERRLA, EOMI, Normocephalic Neck: Supple, No JVD, Negative Carotid Bruits Lungs: Clear to auscultation, Normal air movement Cardiovascular: Regular rate, No murmurs Abdomen: Bowel Sounds Present, Soft, Non Tender Extremities: No edema, Capillary Refill Less than 3 Seconds Skin: No rashes, No breakdown Musculoskeletal: No Tenderness to Palpation of Joints or Extremities Neurological: Cranial nerves II-XII grossly intact Psych/Mental Status: Normal Affect, Appropriate Assessment/Plan All Active Problems Intractable low back pain (Acute) 52 year old male with below past medical history hospitalized for intractable low back pain, admitted to [facility] with debility, here for rehabilitation, strengthening, prior to discharge home with family. * Debility - PT/OT. * Pain - Tylenol 1000MG Q8H PRN mild pain, Oxycodone 5MG Q4H PRN severe pain. * Bowel - Miralax 17GM daily, Senna/colace 2 tablets BID, Dulcolax 10MG PO daily PRN, Magnesium citrate 300ML PO x 1 dose. * Pneumonia vaccination - Administer Prevnar 13 and/or Pnemovax 23 as necessary. * DVT prophylaxis - Lovenox 40MG SC daily. * GERD - Pantoprazole 20MG daily, TUMS 500MG Q4H PRN. * Depression - Citalopram 40MG daily. * Muscle spasm - Flexeril 10MG TID. * Low back pain - Medrol dosepak, Diclofenac 50MG BID with food. * Hypothyroidism - Levothyroxine 175MCG daily. * Anxiety - Ativan 1MG BID PRN.
[2018-03-10] MEDS: oxyCODONE 5 MG Tablet PO ×2 (14:42→20:46)
--- NOTE | 2018-03-10 15:04 | NURSING ---
Pt refused magnesium citrate, had a large BM today. Dr. Carrion updated, NNO.
[2018-03-10 15:22] VITALS: BP 134/84; PULSE 71; RESP 20; TEMP 36.8; O2SAT 100
[2018-03-10] MEDS: LORazepam 1 MG Tablet PO (17:49)
[2018-03-10] MEDS: MethylPREDNISolone DosePak 4 MG BOX PO (20:48)
[2018-03-11] MEDS: Citalopram 40 MG TABLET PO (05:17)
[2018-03-11] MEDS: Enoxaparin 40 MG/0.4 ML Syringe SC (05:17)
[2018-03-11] MEDS: Levothyroxine 175 MCG Tablet PO (05:18)
[2018-03-11 06:29] LABS: Absolute Lymphocyte Count 1.13 X10^3/ul (0.83-4.51); Absolute Neutrophil Count 8.7 X10^3/uL (2.0-7.7); Basophil# 0.01 X10^3/uL; Basophil% 0.1 % (0-1); Eosinophil# 0.04 X10^3/uL; Eosinophils% 0.4 % (0-5); Hematocrit 46.4 % (40-54); Hemoglobin 15.4 g/dl (13.0-16.5); Lymphocyte # 1.13 X10^3/ul (4.0); Lymphocyte % 11.2 % (19-41); Mean Corp Hgb Conc 33.2 g/gl (32-36); Mean Corpuscular Hgb 31.8 pg (27.0-32.0); Mean Corpuscular Volume 95.7 fL (80-94); Mean Platelet Vol. 10.9 fl (6.2-12.0); Monocyte# 0.17 X10^3/uL; Monocyte% 1.7 % (0-10); Neutrophil # 8.65 X10^3/uL (2.7-7.7); Neutrophil % 86.1 % (47-70); Platelet Count 244 K/mm3 (150-450); RBC Distribution Width CV 13.3 % (11.6-14.6); RBC Distribution Width SD 46.6 fl (35.1-43.9); Red Blood Count 4.85 M/mm3 (4.6-6.2); White Blood Count 10.1 K/mm3 (4.4-11.0)
[2018-03-11 06:43] LABS: POSITIVE COUNT NO; POSITIVE DIFFERENTIAL NO; POSITIVE MORPHOLOGY NO
[2018-03-11 06:56] LABS: Anion Gap 12 (5-15); BUN 15 mg/dL (7-18); BUN/Creat Ratio 12.1 RATIO (10-20); Calcium,Total 9.4 mg/dL (8.5-10.1); Chloride 101 mmol/L (98-107); Creatinine, Serum 1.24 mg/dL (0.70-1.30); EST Glomerular Filtration Rate 65 mL/min (>60); Est Glom Filt Rate - Afr Amer 79 mL/min (>60); Glucose 121 mg/dL (74-106); Potassium 4.6 mmol/L (3.5-5.1); Sodium Level 139 mmol/L (136-145)
[2018-03-11] MEDS: Pantoprazole Sodium 20 MG Tablet PO (09:29)
[2018-03-11] MEDS: MethylPREDNISolone DosePak 4 MG BOX PO ×4 (09:29→21:24)
[2018-03-11] MEDS: LORazepam 1 MG Tablet PO (09:33)
--- NOTE | 2018-03-11 09:43 | NURSING ---
pt requested PRN ativan for increased anxiety. Pt took med and placed under tongue. Pt states I put it under mt tongue because that way it goes to the bloodstream faster.
[2018-03-11] MEDS: oxyCODONE 5 MG Tablet PO (10:29)
[2018-03-11] MEDS: Tuberculin,Purif.prot.deriv. 50 TU/ML Vial 5 ML ID (11:20)
[2018-03-11 15:33] VITALS: BP 116/68; PULSE 65; RESP 18; TEMP 36.1; O2SAT 93
[2018-03-11 21:30] VITALS: PULSE 64; O2SAT 98
[2018-03-12] MEDS: Enoxaparin 40 MG/0.4 ML Syringe SC (05:18)
[2018-03-12] MEDS: Citalopram 40 MG TABLET PO (05:18)
[2018-03-12] MEDS: Levothyroxine 175 MCG Tablet PO (05:19)
[2018-03-12] MEDS: MethylPREDNISolone DosePak 4 MG BOX PO ×4 (08:20→20:46)
[2018-03-12] MEDS: Pantoprazole Sodium 20 MG Tablet PO (08:20)
--- NOTE | 2018-03-12 10:28 | PCM.PN.RX ---
<Manohar Websterip D - Last Filed: 03/12/18 10:28> Progress Note - Pharmacy Subjective: TCU Admission Objective: Allergies No Known Allergies Allergy (Verified 03/06/18 17:59) Current Medications Generic Name Dose Route Start Last Admin Trade Name Freq PRN Reason Stop Dose Admin Acetaminophen 1,000 mg 03/10/18 12:11 Tylenol PO Q8H PRN MILD PAIN (1-3/10) Bisacodyl 10 mg 03/10/18 12:09 Dulcolax PO DAILY PRN Constipation Calcium Carbonate 500 mg 03/10/18 11:33 Tums PO Q4H PRN PRN INDIGESTION Citalopram Hydrobromide 40 mg 03/11/18 06:00 03/12/18 05:18 Celexa PO 40 mg DAILY TONY Administration Cyclobenzaprine HCl 10 mg 03/10/18 14:00 03/12/18 05:18 Flexeril PO 10 mg TID TONY Administration Diclofenac Sodium 50 mg 03/10/18 17:00 03/12/18 08:20 Voltaren PO 50 mg BIDCM TONY Administration Enoxaparin Sodium 40 mg 03/11/18 06:00 03/12/18 05:18 Lovenox SC 40 mg DAILY@0600 TONY Administration Levothyroxine Sodium 175 mcg 03/11/18 06:00 03/12/18 05:19 Synthroid PO 175 mcg DAILY TONY Administration Lorazepam 1 mg 03/10/18 11:33 03/11/18 09:33 Ativan PO 1 mg BID PRN Administration ANXIETY Methylprednisolone 4 mg 03/10/18 21:00 03/12/18 08:20 Medrol Dosepak PO 03/15/18 07:59 4 mg 0800,1200,1700,2200 TONY Administration Taper Nystatin 1 applic 03/10/18 12:37 Mycostatin Powder TOPICAL BID PRN RASH/TOPICAL IRRITATION Protocol Oxycodone HCl 5 mg 03/10/18 12:11 03/11/18 10:29 Oxyir PO 5 mg Q4H PRN PRN Administration SEVERE PAIN (6-10/10) Pantoprazole Sodium 20 mg 03/11/18 08:00 03/12/18 08:20 Protonix PO 20 mg DAILY@0800 TONY Administration Polyethylene Glycol 17 gm 03/11/18 06:00 03/12/18 05:19 Miralax PO Not Given DAILY TONY Senna/Docusate Sodium 2 tablet 03/10/18 18:00 03/12/18 05:19 Senokot-S, Rosalba-Colace PO Not Given BID TONY Sodium Chloride 2 spray 03/12/18 08:11 [place] Nasal [place] NASAL TID PRN PRN NASAL DRYNESS Tuberculin PPD 5 tu 03/18/18 10:00 Tubersol, Aplisol, Ppd ID 03/18/18 10:01 X1 ONE Problem List Obstructive sleep apnea (Chronic) Vital Signs Temp Pulse Resp BP Pulse Ox 97.0 F L 64 18 116/68 98 03/11/18 15:33 03/11/18 21:30 03/11/18 15:33 03/11/18 15:33 03/11/18 21:30 Oxygen Delivery Method Room Air Weight: 103.873 kg Body Mass Index (BMI) 38.1 Sodium 139 mmol/L (136-145) 03/11/18 06:05 Potassium 4.6 mmol/L (3.5-5.1) 03/11/18 06:05 Chloride 101 mmol/L (98-107) 03/11/18 06:05 Carbon Dioxide 26.0 mmol/L (21.0-32.0) 03/11/18 06:05 Anion Gap 12 (5-15) 03/11/18 06:05 BUN 15 mg/dL (7-18) 03/11/18 06:05 Creatinine 1.24 mg/dL (0.70-1.30) 03/11/18 06:05 Est GFR (MDRD) Af Amer 79 mL/min (>60) 03/11/18 06:05 Est GFR (MDRD) Non-Af 65 mL/min (>60) 03/11/18 06:05 BUN/Creatinine Ratio 12.1 RATIO (10-20) 03/11/18 06:05 Glucose 121 mg/dL (74-106) H 03/11/18 06:05 Assessment/Plan: 1) Pain APAP for mild pain, oxycodone for severe pain, diclofenac, cyclobenzaprine, methylprednisolone dose pack. Continue to monitor daily pain scores, prn medication use. 2) Hypothyroidism Continue to monitor s/s hyper/hypothyroidism. 3) GI Pantoprazole daily, CaCO3 for indigestion. Continue to monitor s/s GI distress, prn medication use. 4) DVT PPx Enoxaparin daily. Continue to monitor s/s bleeding/clot. Psychotropic Medications: 5) Depression/Anxiety Citalopram daily, lorazepam as needed for anxiety. Continue to monitor s/s depression/anxiety. Unnecessary Medications: None Bowel Regimen: 6) Senna/s, PEG, prn bisacodyl. Continue to monitor prn medication use, for constipation/diarrhea. Date of Note:: 03/12/18 - Provider Comments Provider responsibility: Provider responsible to enter orders to implement recommendations <Gage Carrion Chi - Last Filed: 03/12/18 17:59> Progress Note - Pharmacy Subjective: [] Objective: Allergies No Known Allergies Allergy (Verified 03/06/18 17:59) Current Medications Generic Name Dose Route Start Last Admin Trade Name Freq PRN Reason Stop Dose Admin Acetaminophen 1,000 mg 03/10/18 12:11 Tylenol PO Q8H PRN MILD PAIN (1-3/10) Bisacodyl 10 mg 03/10/18 12:09 Dulcolax PO DAILY PRN Constipation Calcium Carbonate 500 mg 03/10/18 11:33 Tums PO Q4H PRN PRN INDIGESTION Citalopram Hydrobromide 40 mg 03/11/18 06:00 03/12/18 05:18 Celexa PO 40 mg DAILY TONY Administration Cyclobenzaprine HCl 10 mg 03/10/18 14:00 03/12/18 14:13 Flexeril PO 10 mg TID TONY Administration Diclofenac Sodium 50 mg 03/10/18 17:00 03/12/18 17:31 Voltaren PO 50 mg BIDCM TONY Administration Enoxaparin Sodium 40 mg 03/11/18 06:00 03/12/18 05:18 Lovenox SC 40 mg DAILY@0600 TONY Administration Levothyroxine Sodium 175 mcg 03/11/18 06:00 03/12/18 05:19 Synthroid PO 175 mcg DAILY TONY Administration Lorazepam 1 mg 03/12/18 10:40 03/12/18 17:49 Ativan PO 1 mg BID PRN PRN Administration ANXIETY Methylprednisolone 4 mg 03/10/18 21:00 03/12/18 17:31 Medrol Dosepak PO 03/15/18 07:59 4 mg 0800,1200,1700,2200 TONY Administration Taper Nystatin 1 applic 03/10/18 12:37 Mycostatin Powder TOPICAL BID PRN RASH/TOPICAL IRRITATION Protocol Oxycodone HCl 5 mg 03/10/18 12:11 03/12/18 11:56 Oxyir PO 5 mg Q4H PRN PRN Administration SEVERE PAIN (6-10/10) Pantoprazole Sodium 20 mg 03/11/18 08:00 03/12/18 08:20 Protonix PO 20 mg DAILY@0800 TONY Administration Polyethylene Glycol 17 gm 03/11/18 06:00 03/12/18 05:19 Miralax PO Not Given DAILY TONY Senna/Docusate Sodium 2 tablet 03/10/18 18:00 03/12/18 17:31 Senokot-S, Rosalba-Colace PO Not Given BID TONY Sodium Chloride 2 spray 03/12/18 08:11 [place] Nasal [place] NASAL TID PRN PRN NASAL DRYNESS Tuberculin PPD 5 tu 03/18/18 10:00 Tubersol, Aplisol, Ppd ID 03/18/18 10:01 X1 ONE Problem List Obstructive sleep apnea (Chronic) Vital Signs Temp Pulse Resp BP Pulse Ox 98.1 F 67 16 110/63 95 03/12/18 15:22 03/12/18 15:22 03/12/18 15:22 03/12/18 15:22 03/12/18 15:22 Oxygen Delivery Method Room Air Weight: 103.873 kg Body Mass Index (BMI) 38.1 Sodium 139 mmol/L (136-145) 03/11/18 06:05 Potassium 4.6 mmol/L (3.5-5.1) 03/11/18 06:05 Chloride 101 mmol/L (98-107) 03/11/18 06:05 Carbon Dioxide 26.0 mmol/L (21.0-32.0) 03/11/18 06:05 Anion Gap 12 (5-15) 03/11/18 06:05 BUN 15 mg/dL (7-18) 03/11/18 06:05 Creatinine 1.24 mg/dL (0.70-1.30) 03/11/18 06:05 Est GFR (MDRD) Af Amer 79 mL/min (>60) 08/19/18 06:05 Est GFR (MDRD) Non-Af 65 mL/min (>60) 03/11/18 06:05 BUN/Creatinine Ratio 12.1 RATIO (10-20) 03/11/18 06:05 Glucose 121 mg/dL (74-106) H 03/11/18 06:05 Assessment/Plan: Psychotropic Medications: Unnecessary Medications: Bowel Regimen: - Provider Comments Provider responsibility: Provider responsible to enter orders to implement recommendations Provider Comments to Recommendations by Pharmacy: Agree
[2018-03-12] MEDS: oxyCODONE 5 MG Tablet PO (11:56)
[2018-03-12 15:22] VITALS: BP 110/63; PULSE 67; RESP 16; TEMP 36.7; O2SAT 95
--- NOTE | 2018-03-12 16:13 | CHAPLAIN ---
Type of Pastoral Visit _x__ Initial Visit ___ Follow-up Visit ___ On-call Visit ___ General Patient Visit ___ Spiritual Assessment ___ Family Conference ___ Bereavement ___ Rapid Response ___ Code Blue ___ Other (describe below) Pastoral Care Referral From _x__ Patient ___ Family ___ Nurse ___ Physician ___ Vice President ___ [place] ___ Other (describe below) Sacrament/Intervention _x__ Active listening ___ Anointing ___ Scientology ___ Bereavement ___ Communion ___ Amarilys exploration ___ _x__ Life review _x__ Prayer ___ Reconciliation ___ Sacrament of Sick ___ Supportive presence ___ Wedding ___ Other (describe below) Pastoral Comments patient was seen during previous admission; pt is welcoming and talkative; 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
[2018-03-12] MEDS: LORazepam 1 MG Tablet PO (17:49)
[2018-03-12 20:50] VITALS: PULSE 78; O2SAT 95
[2018-03-13] MEDS: Enoxaparin 40 MG/0.4 ML Syringe SC (05:58)
[2018-03-13] MEDS: Citalopram 40 MG TABLET PO (05:59)
[2018-03-13] MEDS: Levothyroxine 175 MCG Tablet PO (05:59)
[2018-03-13] MEDS: Senna/Docusate Sodium 1 Tablet 2 TABLET PO ×2 (06:00→16:41)
[2018-03-13] MEDS: Acetaminophen 500 MG Tablet 1000 MG PO (07:59)
[2018-03-13] MEDS: MethylPREDNISolone DosePak 4 MG BOX PO ×3 (08:00→20:04)
[2018-03-13] MEDS: Pantoprazole Sodium 20 MG Tablet PO (08:01)
[2018-03-13 15:53] VITALS: BP 142/80; PULSE 68; RESP 18; TEMP 36.9; O2SAT 98
[2018-03-13] MEDS: oxyCODONE 5 MG Tablet PO (16:09)
[2018-03-13 20:00] VITALS: PULSE 66; RESP 18; O2SAT 97
[2018-03-13 23:35] VITALS: PULSE 65; RESP 17; O2SAT 96
[2018-03-14 01:47] VITALS: PULSE 61; RESP 16; O2SAT 96
[2018-03-14 02:33] VITALS: PULSE 64; RESP 16; O2SAT 97
[2018-03-14 05:38] VITALS: PULSE 62; RESP 17; O2SAT 95
[2018-03-14] MEDS: Senna/Docusate Sodium 1 Tablet 2 TABLET PO (06:11)
[2018-03-14] MEDS: Citalopram 40 MG TABLET PO (06:11)
[2018-03-14] MEDS: Levothyroxine 175 MCG Tablet PO (06:11)
[2018-03-14] MEDS: Enoxaparin 40 MG/0.4 ML Syringe SC (06:16)
[2018-03-14] MEDS: LORazepam 1 MG Tablet PO (06:48)
[2018-03-14] MEDS: MethylPREDNISolone DosePak 4 MG BOX PO ×2 (08:42→21:22)
[2018-03-14] MEDS: Pantoprazole Sodium 20 MG Tablet PO (08:42)
[2018-03-14] MEDS: oxyCODONE 5 MG Tablet PO ×2 (09:47→14:15)
--- NOTE | 2018-03-14 10:53 | CASEMGMT ---
Plan of Care meeting held with pt present. Pt is progressing with therapy. Pt lives at home with his son but states his son is not able to assist and pt must be able to care for himself at d/c. Pt inquiring about home health. KIZZY explained that home health services require pt to be home bound and can come a few times a week but not daily. KIZZY explained that if pt needs more care, private duty aids can be hired. And if not home bound outpt therapy may be an option. Pt does not feel private duty aids are affordable at this time. SW will continue to follow. NYDIA Ordoñez
[2018-03-14 15:15] VITALS: BP 123/71; PULSE 61; RESP 18; TEMP 36.4; O2SAT 98
[2018-03-15 01:37] VITALS: PULSE 67; RESP 17; O2SAT 96
--- NOTE | 2018-03-15 02:47 | NURSING ---
Patient caught self ambulating in room without using walker. Reminded to call for assistance. Patient verbalizes understanding but continues to self ambulate in room without foot wear or walker. Reported to REBA Larson and REBA Fisher.
[2018-03-15 04:42] VITALS: PULSE 60; RESP 17; O2SAT 96
[2018-03-15] MEDS: Citalopram 40 MG TABLET PO (05:57)
[2018-03-15] MEDS: Enoxaparin 40 MG/0.4 ML Syringe SC (05:58)
[2018-03-15] MEDS: Levothyroxine 175 MCG Tablet PO (06:00)
[2018-03-15] MEDS: Pantoprazole Sodium 20 MG Tablet PO (08:20)
[2018-03-15] MEDS: LORazepam 1 MG Tablet PO (09:50)
[2018-03-15 10:00] VITALS: PULSE 77; RESP 18; O2SAT 96
[2018-03-15 10:01] LABS: Bedside Glucose 112 mg/dL (70-110)
[2018-03-15] MEDS: Acetaminophen 500 MG Tablet 1000 MG PO (12:41)
[2018-03-15] MEDS: oxyCODONE 5 MG Tablet PO ×2 (12:41→17:19)
[2018-03-15 16:00] VITALS: BP 131/78; PULSE 68; RESP 16; TEMP 36.7; O2SAT 97
[2018-03-16 00:25] VITALS: PULSE 65; RESP 18; O2SAT 96
[2018-03-16 03:33] VITALS: PULSE 62; RESP 16; O2SAT 96
[2018-03-16] MEDS: Citalopram 40 MG TABLET PO ×2 (05:55→20:46)
[2018-03-16] MEDS: Levothyroxine 175 MCG Tablet PO (05:58)
[2018-03-16] MEDS: Enoxaparin 40 MG/0.4 ML Syringe SC (05:59)
[2018-03-16] MEDS: oxyCODONE 5 MG Tablet PO ×2 (08:09→13:46)
[2018-03-16] MEDS: Pantoprazole Sodium 20 MG Tablet PO (08:10)
--- NOTE | 2018-03-16 11:20 | MDS.RN ---
Pain interview for VIVIENNE 03/17/18 completed.
--- NOTE | 2018-03-16 14:31 | CASEMGMT ---
Brief interview for mental status (BIMS) and resident mood interview (PHQ-9) completed on this day. BIMS score 15. PHQ-9 score 09/19
--- NOTE | 2018-03-16 14:32 | CASEMGMT ---
Social Work Met with resident in room. Resident bring concerns to this social service coordinator in regards to returning to home where resident is alone most of the time. Resident voicing to not be sure if resident is able to return home and stating that resident parent would like resident to transition to an assisted living. Resident voicing to not be able to financial afford an assisted living. This social service coordinator broaching topic of [facility] waiver program. Resident voicing to not be interested in the waiver program due to having to give up social security check. This social service coordinator communicating that resident would still receive part of social security check and that the rest goes towards house. Resident voicing understanding and declining for this social service coordinator to make a referral for provide resident with information. Resident voicing to now believe that resident is able to return home if pain is managed. This social service coordinator asking if resident has spoken with Dr. Carrion in regards to pain. Resident stating that resident has not requested to speak with Dr. Carrion about this concern. This social service coordinator to notify Dr. Carrion that resident would like to speak with resident in regards to pain management. Resident also interested in seeing a computer support specialist and has Dr. Giraldo in mind. This social service coordinator encouraging resident to make appointment with Dr. Giraldo and that resident is able to see Dr. Giraldo while on the Transitional Care Unit but will need to have family or a wheelchair van to provide transportation. Resident voicing that family would provide transportation. Resident voicing to have Dr. Giraldo contact information and to be able to contact Dr. Giraldo to set up appointment. Plan is for resident to contact Dr. Giraldo to set up appointment, resident to call this afternoon after therapy is completed. Resident agreeable to plan. Resident voicing no further needs at this time. Support given. PLAN: 1) Resident to contact Dr. Giraldo to set up appointment. 2) This social service coordinator notified Dr. Carrion that resident would like to speak with Dr. Carrion in regards to pain management options. Amie STAFFORD, COMMERCIAL REAL ESTATE BROKER
[2018-03-16 16:00] VITALS: BP 134/80; PULSE 60; RESP 16; TEMP 36.8; O2SAT 97
[2018-03-16] MEDS: Senna/Docusate Sodium 1 Tablet 2 TABLET PO (17:13)
[2018-03-16 20:49] VITALS: PULSE 67; RESP 18; O2SAT 97
[2018-03-16] MEDS: LORazepam 1 MG Tablet PO (23:15)
[2018-03-17 00:55] VITALS: PULSE 50; RESP 14; O2SAT 97
[2018-03-17 04:35] VITALS: PULSE 56; RESP 16; O2SAT 96
[2018-03-17] MEDS: Enoxaparin 40 MG/0.4 ML Syringe SC (05:53)
[2018-03-17] MEDS: Polyethylene Glycol 3350 17 GM PACKET PO (05:53)
[2018-03-17] MEDS: Levothyroxine 175 MCG Tablet PO (05:54)
[2018-03-17] MEDS: Senna/Docusate Sodium 1 Tablet 2 TABLET PO ×2 (05:54→16:44)
[2018-03-17 05:59] VITALS: PULSE 72; RESP 16; O2SAT 95
[2018-03-17] MEDS: Pantoprazole Sodium 20 MG Tablet PO (09:04)
[2018-03-17 15:22] VITALS: BP 120/64; PULSE 53; RESP 16; TEMP 35.9; O2SAT 97
[2018-03-17] MEDS: LORazepam 1 MG Tablet PO (16:44)
[2018-03-17] MEDS: oxyCODONE 5 MG Tablet PO (18:11)
[2018-03-18 05:57] LABS: Absolute Lymphocyte Count 2.27 X10^3/ul (0.83-4.51); Absolute Neutrophil Count 7.4 X10^3/uL (2.0-7.7); Basophil# 0.03 X10^3/uL; Basophil% 0.3 % (0-1); Eosinophil# 0.19 X10^3/uL; Eosinophils% 1.7 % (0-5); Hematocrit 45.3 % (40-54); Hemoglobin 15.1 g/dl (13.0-16.5); Lymphocyte # 2.27 X10^3/ul (4.0); Lymphocyte % 20.7 % (19-41); Mean Corp Hgb Conc 33.3 g/gl (32-36); Mean Corpuscular Hgb 31.9 pg (27.0-32.0); Mean Corpuscular Volume 95.8 fL (80-94); Mean Platelet Vol. 10.7 fl (6.2-12.0); Monocyte# 0.96 X10^3/uL; Monocyte% 8.7 % (0-10); Neutrophil # 7.43 X10^3/uL (2.7-7.7); Neutrophil % 67.6 % (47-70); Platelet Count 252 K/mm3 (150-450); RBC Distribution Width CV 13.2 % (11.6-14.6); RBC Distribution Width SD 45.4 fl (35.1-43.9); Red Blood Count 4.73 M/mm3 (4.6-6.2)
[2018-03-18 06:07] LABS: POSITIVE COUNT NO; POSITIVE DIFFERENTIAL NO; POSITIVE MORPHOLOGY NO
[2018-03-18 06:10] LABS: Anion Gap 10 (5-15); BUN 19 mg/dL (7-18); BUN/Creat Ratio 13.1 RATIO (10-20); Calcium,Total 8.9 mg/dL (8.5-10.1); Chloride 101 mmol/L (98-107); Creatinine, Serum 1.45 mg/dL (0.70-1.30); EST Glomerular Filtration Rate 55 mL/min (>60); Est Glom Filt Rate - Afr Amer 66 mL/min (>60); Estimated Creatinine Clearance 53.02 ml/min; Glucose 87 mg/dL (74-106); Potassium 4.3 mmol/L (3.5-5.1); Sodium Level 139 mmol/L (136-145)
[2018-03-18] MEDS: Bisacodyl 5 MG Tablet 10 MG PO (06:50)
[2018-03-18] MEDS: Senna/Docusate Sodium 1 Tablet 2 TABLET PO (06:51)
[2018-03-18] MEDS: Citalopram 40 MG TABLET PO (06:51)
[2018-03-18] MEDS: Enoxaparin 40 MG/0.4 ML Syringe SC (06:52)
[2018-03-18] MEDS: Pantoprazole Sodium 20 MG Tablet PO (06:52)
[2018-03-18] MEDS: Levothyroxine 175 MCG Tablet PO (06:57)
[2018-03-18] MEDS: LORazepam 1 MG Tablet PO ×2 (09:44→18:58)
[2018-03-18 16:00] VITALS: BP 129/69; PULSE 64; RESP 16; TEMP 35.9; O2SAT 96
[2018-03-18] MEDS: Calcium Carbonate 500 MG Tablet PO (20:51)
[2018-03-18 21:00] VITALS: PULSE 72; RESP 18; O2SAT 94
[2018-03-19] MEDS: Levothyroxine 175 MCG Tablet PO (06:32)
[2018-03-19] MEDS: Citalopram 40 MG TABLET PO (06:32)
[2018-03-19] MEDS: Enoxaparin 40 MG/0.4 ML Syringe SC (06:32)
[2018-03-19] MEDS: Pantoprazole Sodium 20 MG Tablet PO (07:54)
[2018-03-19] MEDS: LORazepam 1 MG Tablet PO (11:08)
[2018-03-19] MEDS: oxyCODONE 5 MG Tablet PO ×2 (12:30→19:59)
--- NOTE | 2018-03-19 13:28 | MDS.RN ---
Information for the mds was obtained from review of the clinical record, interview of resident, staff, and direct observation of resident's care.
--- NOTE | 2018-03-19 14:36 | CHAPLAIN ---
Type of Pastoral Visit ___ Initial Visit _x__ Follow-up Visit ___ On-call Visit ___ General Patient Visit ___ Spiritual Assessment ___ Family Conference ___ Bereavement ___ Rapid Response ___ Code Blue ___ Other (describe below) Pastoral Care Referral From _x__ Patient ___ Family ___ Nurse ___ Physician ___ Aquatic Centre Manager ___ Print Line Inspector ___ Other (describe below) Sacrament/Intervention _x__ Active listening ___ Anointing ___ Christianity ___ Bereavement ___ Communion ___ Amarilys exploration ___ ___ Life review ___ Prayer ___ Reconciliation ___ Sacrament of Sick ___ Supportive presence ___ Wedding ___ Other (describe below) Pastoral Comments
[2018-03-19 15:31] VITALS: BP 116/74; PULSE 73; RESP 16; TEMP 36.4; O2SAT 95
--- NOTE | 2018-03-19 18:33 | NURSING ---
STOPPED BY TO SEE PT. PT ON PCU VISITING ANOTHER PT. DR. MARISCAL STATED PT COULD SCHEDULE APPOINTMENT WITH HIM. REPORTED TO REBA SEE
[2018-03-19] MEDS: Acetaminophen 500 MG Tablet 1000 MG PO (20:05)
[2018-03-20] MEDS: Calcium Carbonate 500 MG Tablet PO (03:39)
[2018-03-20] MEDS: oxyCODONE 5 MG Tablet PO ×3 (03:40→20:06)
[2018-03-20 06:06] LABS: Anion Gap 9 (5-15); BUN 13 mg/dL (7-18); BUN/Creat Ratio 10.6 RATIO (10-20); Calcium,Total 8.6 mg/dL (8.5-10.1); Chloride 104 mmol/L (98-107); Creatinine, Serum 1.23 mg/dL (0.70-1.30); EST Glomerular Filtration Rate 66 mL/min (>60); Est Glom Filt Rate - Afr Amer 80 mL/min (>60); Glucose 92 mg/dL (74-106); Potassium 3.8 mmol/L (3.5-5.1); Sodium Level 140 mmol/L (136-145)
[2018-03-20] MEDS: Pantoprazole Sodium 20 MG Tablet PO (07:01)
[2018-03-20] MEDS: Enoxaparin 40 MG/0.4 ML Syringe SC (07:02)
[2018-03-20] MEDS: Levothyroxine 175 MCG Tablet PO (07:02)
[2018-03-20] MEDS: Citalopram 40 MG TABLET PO (07:02)
[2018-03-20] MEDS: LORazepam 1 MG Tablet PO (12:04)
[2018-03-20 15:35] VITALS: BP 126/84; PULSE 74; RESP 18; TEMP 36.6; O2SAT 93
[2018-03-20 20:00] VITALS: PULSE 68; RESP 18; O2SAT 96
[2018-03-21] MEDS: oxyCODONE 5 MG Tablet PO ×3 (00:06→14:39)
[2018-03-21] MEDS: Enoxaparin 40 MG/0.4 ML Syringe SC (04:57)
[2018-03-21] MEDS: Levothyroxine 175 MCG Tablet PO (04:58)
[2018-03-21] MEDS: Citalopram 40 MG TABLET PO (04:58)
[2018-03-21] MEDS: Pantoprazole Sodium 20 MG Tablet PO (09:19)
[2018-03-21 10:00] VITALS: PULSE 84; RESP 18; O2SAT 96
[2018-03-21] MEDS: LORazepam 1 MG Tablet PO (10:23)
--- NOTE | 2018-03-21 12:28 | NURSING ---
This RN noticed home Ativan locked in medication drawer- TCU called and notified that home medication is here and will be hand delivered later this shift.
[2018-03-21 16:00] VITALS: BP 130/86; PULSE 73; RESP 18; TEMP 36.8; O2SAT 94
--- NOTE | 2018-03-21 16:19 | CASEMGMT ---
Brief interview for mental status (BIMS) and resident mood interview (PHQ-9) completed on this day. BIMS score 15/15. PHQ-9 score
[2018-03-22] MEDS: Citalopram 40 MG TABLET PO (06:50)
[2018-03-22] MEDS: Enoxaparin 40 MG/0.4 ML Syringe SC (06:50)
[2018-03-22] MEDS: Levothyroxine 175 MCG Tablet PO (06:50)
[2018-03-22] MEDS: Senna/Docusate Sodium 1 Tablet 2 TABLET PO (06:51)
[2018-03-22] MEDS: Pantoprazole Sodium 20 MG Tablet PO (08:18)
[2018-03-22] MEDS: Acetaminophen 500 MG Tablet 1000 MG PO (08:21)
[2018-03-22] MEDS: oxyCODONE 5 MG Tablet PO ×2 (08:22→13:37)
[2018-03-22] MEDS: LORazepam 1 MG Tablet PO (09:15)
[2018-03-22 10:00] VITALS: PULSE 78; RESP 18; O2SAT 95
--- NOTE | 2018-03-22 13:46 | MDS.RN ---
Pain interview for VIVIENNE 03/24/18 completed.
[2018-03-22 15:56] VITALS: BP 110/68; PULSE 66; RESP 16; TEMP 36.6; O2SAT 100
[2018-03-23] MEDS: Pantoprazole Sodium 20 MG Tablet PO (07:10)
[2018-03-23] MEDS: Levothyroxine 175 MCG Tablet PO (07:10)
[2018-03-23] MEDS: Citalopram 40 MG TABLET PO (07:10)
[2018-03-23] MEDS: Enoxaparin 40 MG/0.4 ML Syringe SC (07:11)
[2018-03-23] MEDS: Senna/Docusate Sodium 1 Tablet 2 TABLET PO (07:11)
[2018-03-23 10:00] VITALS: PULSE 85; RESP 18; O2SAT 96
--- NOTE | 2018-03-23 11:22 | CASEMGMT ---
Sruthi Dietrich from [facility] called([phone]), inquiring where pt went in regard to [facility]. SW called Sruthi back, let her know pt is in TCU, and was able to go under Medicare. SW explained will let TCU SW know to let Sruthi know if pt goes to another [facility] after TCU, so she can process the Medicaid application, or to let Sruthi know if pt goes home. SW did let TCU SW know the above information. DEYA Salmon, FACE CLEANER
[2018-03-23] MEDS: oxyCODONE 5 MG Tablet PO (11:59)
[2018-03-23 15:33] VITALS: BP 121/69; PULSE 62; RESP 16; TEMP 36.3; O2SAT 94
--- NOTE | 2018-03-23 18:32 | NURSING ---
Pt refusing senna and hasn't had a bowel movement in 3 days. Patient agreeable to taking prune juice and said he will take ducolax by mouth at bedtime if the prune juice has no results. Pt refusing any mag citrate or go lytly. Placido BRITTON aware.
[2018-03-23] MEDS: LORazepam 1 MG Tablet PO (22:16)
[2018-03-24] MEDS: Enoxaparin 40 MG/0.4 ML Syringe SC (05:45)
[2018-03-24] MEDS: Citalopram 40 MG TABLET PO (05:46)
[2018-03-24] MEDS: Levothyroxine 175 MCG Tablet PO (05:46)
[2018-03-24] MEDS: Pantoprazole Sodium 20 MG Tablet PO (08:17)
[2018-03-24] MEDS: LORazepam 1 MG Tablet PO (14:12)
[2018-03-24 14:17] VITALS: PULSE 64; RESP 18; O2SAT 97
[2018-03-24 15:19] VITALS: BP 101/60; PULSE 70; RESP 16; TEMP 36.1; O2SAT 94
[2018-03-25] MEDS: LORazepam 1 MG Tablet PO ×2 (00:10→22:08)
[2018-03-25] MEDS: Calcium Carbonate 500 MG Tablet PO ×2 (00:14→05:31)
--- NOTE | 2018-03-25 00:38 | NURSING ---
Pt stated that his blood pressure was low earlier and the nurse stated to him not to worry about it. States, Bp was 102/80 and would like for me to take it. This nurse took Bp 138/88, P-61 pt says that it was higher than earlier. He would like for doctor to be aware of his Bp. Natalia BRITTON aware of pt concerns.
--- NOTE | 2018-03-25 02:08 | NURSING ---
Pt c/o heartburns pt was given prn tums around midnight states it helped him a little. This nurse gave solis cecelia and crackers to see if this will help. Will continue to monitor.
--- NOTE | 2018-03-25 05:32 | NURSING ---
Pt requested tums at this time still c/o heartburns. Prn tums given again pt states that nothing has helped him so far with the heartburns. RN aware.
[2018-03-25] MEDS: Citalopram 40 MG TABLET PO (05:35)
[2018-03-25] MEDS: Levothyroxine 175 MCG Tablet PO (05:35)
[2018-03-25] MEDS: Senna/Docusate Sodium 1 Tablet 2 TABLET PO (05:37)
[2018-03-25] MEDS: Enoxaparin 40 MG/0.4 ML Syringe SC (05:39)
--- NOTE | 2018-03-25 05:42 | NURSING ---
Pt continues to c/o heartburns at this time pt was given tums again per his request. Pt was as given two containers of prune juice and colace this morning. Pt bowel sounds in all four quadrant were normoactive and stomach was firm and distended. Pt states he has had a BM not observed by this nurse pt reports it.
[2018-03-25 06:33] LABS: Absolute Lymphocyte Count 1.81 X10^3/ul (0.83-4.51); Absolute Neutrophil Count 5.8 X10^3/uL (2.0-7.7); Basophil# 0.03 X10^3/uL; Basophil% 0.3 % (0-1); Eosinophil# 0.16 X10^3/uL; Eosinophils% 1.8 % (0-5); Hematocrit 44.5 % (40-54); Hemoglobin 15.1 g/dl (13.0-16.5); Lymphocyte # 1.81 X10^3/ul (4.0); Lymphocyte % 20.6 % (19-41); Mean Corp Hgb Conc 33.9 g/gl (32-36); Mean Corpuscular Hgb 31.7 pg (27.0-32.0); Mean Corpuscular Volume 93.5 fL (80-94); Monocyte# 0.87 X10^3/uL; Monocyte% 9.9 % (0-10); Neutrophil # 5.84 X10^3/uL (2.7-7.7); Neutrophil % 66.7 % (47-70); Platelet Count 252 K/mm3 (150-450); RBC Distribution Width CV 12.6 % (11.6-14.6); RBC Distribution Width SD 42.4 fl (35.1-43.9); Red Blood Count 4.76 M/mm3 (4.6-6.2); White Blood Count 8.8 K/mm3 (4.4-11.0)
[2018-03-25 06:34] LABS: POSITIVE COUNT NO; POSITIVE DIFFERENTIAL NO; POSITIVE MORPHOLOGY NO
[2018-03-25 06:54] LABS: Anion Gap 8 (5-15); BUN 13 mg/dL (7-18); BUN/Creat Ratio 10.7 RATIO (10-20); Chloride 104 mmol/L (98-107); Creatinine, Serum 1.22 mg/dL (0.70-1.30); EST Glomerular Filtration Rate 67 mL/min (>60); Est Glom Filt Rate - Afr Amer 81 mL/min (>60); Estimated Creatinine Clearance 63.01 ml/min; Glucose 102 mg/dL (74-106); Potassium 3.8 mmol/L (3.5-5.1); Sodium Level 137 mmol/L (136-145)
[2018-03-25] MEDS: Pantoprazole Sodium 20 MG Tablet PO (08:49)
--- NOTE | 2018-03-25 08:53 | NURSING ---
PT COMPLAINED OF INDIGESTION, STATED TUMS DIDNT WORK. PT STOMACH DISTENDED AND FIRM,ACTIVE NORMAL SOUNDS. THIS NURSE SEEN PRUNE JUICE STILL ON TABLE. ASKED PT IF HE WAS GOING TO DRINK IT AND IF NOT IF I COULD GIVE HIM A DULCOLAX DUE TO HIM POSSIBLY NEEDING A GOOD BM. PT REFUSED AND STATED HE WOULD DRINK THE PRUNE JUICE CAUSE IT HELPED HIM BEFORE. PT DID DRINK JUICE IN FRONT OF THIS NURSE. THIS NURSE STATED TO PT TO PLEASE CALL WHEN HE HAS A BM SO I COULD LOOK AT IT. PT SAID YES HE WOULD. REPORTED TO REBA RUST
[2018-03-25 12:45] VITALS: PULSE 80; RESP 18; O2SAT 98
[2018-03-25 15:37] VITALS: BP 120/77; PULSE 70; RESP 16; TEMP 36.8; O2SAT 99
[2018-03-25] MEDS: oxyCODONE 5 MG Tablet PO (20:17)
[2018-03-26] MEDS: Citalopram 40 MG TABLET PO (05:56)
[2018-03-26] MEDS: Enoxaparin 40 MG/0.4 ML Syringe SC (05:56)
[2018-03-26] MEDS: Levothyroxine 175 MCG Tablet PO (05:57)
[2018-03-26] MEDS: Pantoprazole Sodium 20 MG Tablet PO (09:02)
--- NOTE | 2018-03-26 11:06 | NURSING ---
Addendum entered by Barbara Ott 03/26/18 12:32: Pt denies feeling dizzy to this nurse, vitals WNL, fresh ice water given. Original Note: PT COMPLAINING OF DIZZINESS RIGHT AFTER THERAPY. VITAL SIGNS WITH IN NORMAL LIMITS. REPORTED TO REBA ENCARNACION
[2018-03-26 11:09] VITALS: BP 112/69; PULSE 80; RESP 18; O2SAT 97
[2018-03-26] MEDS: LORazepam 1 MG Tablet PO (13:05)
[2018-03-26 14:14] VITALS: PULSE 84; RESP 18; O2SAT 97
[2018-03-26 15:27] VITALS: BP 130/71; PULSE 69; RESP 16; TEMP 36.8; O2SAT 96
[2018-03-26] MEDS: oxyCODONE 5 MG Tablet PO ×2 (15:37→21:09)
[2018-03-26] MEDS: Sodium Chloride 0.65% 1 SPRAY SPRAY.BTL 2 SPRAY NASAL (15:51)
[2018-03-26] MEDS: Senna/Docusate Sodium 1 Tablet 2 TABLET PO (16:50)
[2018-03-27] MEDS: Citalopram 40 MG TABLET PO (06:53)
[2018-03-27] MEDS: Senna/Docusate Sodium 1 Tablet 2 TABLET PO (06:53)
[2018-03-27] MEDS: Levothyroxine 175 MCG Tablet PO (06:53)
[2018-03-27] MEDS: Enoxaparin 40 MG/0.4 ML Syringe SC (06:54)
[2018-03-27] MEDS: Pantoprazole Sodium 20 MG Tablet PO (07:02)
[2018-03-27 07:15] VITALS: RESP 16
[2018-03-27] MEDS: LORazepam 1 MG Tablet PO (09:00)
[2018-03-27 10:00] VITALS: PULSE 78; RESP 18; O2SAT 96
[2018-03-27] MEDS: Calcium Carbonate 500 MG Tablet PO (13:09)
[2018-03-27] MEDS: oxyCODONE 5 MG Tablet PO ×2 (14:06→19:35)
--- NOTE | 2018-03-27 14:34 | CASEMGMT ---
Social Work Spoke with resident in room. This social science research assistant communicating to resident that discharge date has been set for 03/31/18. Resident is agreeable to discharge date and plans to discharge to home with son. This social science research assistant communicating that physical therapy is recommending for resident to continue with services through outpatient physical therapy. Resident is agreeable to recommendation and requesting for outpatient physical therapy to be set up through [facility]. Resident reporting to have all needed durable medical equipment already set up within the home. Resident family plans to provide transportation home for resident at time of discharge. Resident aware that order will be faxed to [facility] for outpatient services and then [facility] will contact resident to set up appointment. Support given. Will fax order to [facility] when obtained. Proposed discharge date: 03/31/18 PLAN: Discharge to home with family and outpatient physical therapy. Amie STAFFORD, DIRECTOR OF NURSING
[2018-03-27 16:00] VITALS: BP 123/72; PULSE 72; RESP 20; TEMP 36.9; O2SAT 94
--- NOTE | 2018-03-27 17:57 | NURSING ---
DR KEBEDE SPOKE WITH SANDEEP BELL, NEW ORDER TO D/C MEDARDO AND CONSULT BASALI FOR EPIDURAL STEROID INJECTION.
[2018-03-27] MEDS: Acetaminophen 500 MG Tablet 1000 MG PO (19:35)
--- NOTE | 2018-03-27 20:04 | NURSING ---
Pt c/o pain to lower back, rating it a 5/10. Per day shift, pt had not yet been out of bed today. Pt encouraged to get OOB, he did to use bathroom. Given prn oxyir 5mg and prn tylenol 1000mg per request approx 1949. Continuing to monitor.
--- NOTE | 2018-03-27 20:19 | PCM.DC ---
- Discharge Diagnoses Current Active Problems: Current Active and Chronic Problems Obstructive sleep apnea (Chronic) You will use the following diet at home:: No restrictions, Regular Your food should be the consistency of: Regular Your liquids should be the consistency of: Regular/Thin Discharge Activity: Return to Normal Activity, May Shower, Use Walker Weight Bearing Status: Weight bearing as tolerated Call your doctor if you observe: Fever of 101 or Higher, Inability to urinate, Inability to have a bowel movement, Shortness of breath, Chest pain, Uncontrolled pain Allergies/Adverse Reactions: Allergies No Known Allergies Allergy (Verified 03/06/18 17:59) Medications to take at Discharge Citalopram [Celexa] 40 mg PO DAILY 05/21/16 Levothyroxine [Synthroid] 175 mcg PO DAILY 05/21/16 Lorazepam [Ativan] 1 mg PO BID PRN #4 tab 11/25/17 Calcium Carbonate [Tums] 500 mg PO Q4H PRN PRN tablet 12/05/17 Omeprazole [Prilosec] 20 mg PO DAILY@0800 03/10/18 Senna/Docusate Sodium [Senokot-S] 2 tablet PO BID PRN PRN tablet 03/10/18 Acetaminophen [Tylenol] 1,000 mg PO Q8H PRN tablet 03/27/18 Nystatin Powder [Mycostatin Powder] 1 applic TOPICAL BID PRN bottle 03/27/18 Oxycodone HCl/Acetaminophen [Percocet 5-325] 1 tab PO Q4H PRN PRN 5 Days #20 tab 03/27/18 Polyethylene Glycol 3350 [Miralax] 17 gm PO DAILY #30 packet 03/27/18 Senna/Docusate Sodium [Senokot-S] 2 tab PO BID #60 tab 03/27/18 Sodium Chloride 0.65% [[place] Nasal [place]] 2 spray NASAL TID PRN PRN spray.btl 03/27/18 The following prescriptions were given: Oxycodone HCl/Acetaminophen [Percocet 5-325] 1 tab PO Q4H PRN PRN 5 Days #20 tab PRN Reason: Pain Polyethylene Glycol 3350 [Miralax] 17 gm PO DAILY #30 packet Senna/Docusate Sodium [Senokot-S] 2 tab PO BID #60 tab Primary Care Physician: Sai Cobian MD [Primary Care Provider] - Please follow up with your Primary Care Physician in: 1 week. Test Results: Test results from this visit will be discussed in further detail at your follow-up appointment, if applicable. Please Follow Up With: spine [facility] When: [phone] Please Follow Up With: Dr Ray Giraldo When: 2 weeks. Proposed Discharge Date: 03/31/18
--- NOTE | 2018-03-27 20:21 | PCM.DC.SUM ---
Discharge Date and Diagnosis Date of Admission: 03/10/18 Date of Discharge: 03/31/18 - Secondary Discharge Diagnosis Chronic Problems GERD (gastroesophageal reflux disease) (Chronic) Obstructive sleep apnea (Chronic) Multilevel spinal canal stenosis (Chronic) Hypothyroidism (Chronic) Anxiety (Chronic) Depression (Chronic) Hospital Course and Treatment Imaging Results: 03/10/18 11:37 Diet: Regular Diet Operations: None Procedures: None Summary of Care Provided: The patient is a 52 year old Male with below past medical history hospitalized for intractable low back pain, admitted to TCU with debility, here for rehabilitation, strengthening, prior to discharge home with family. Discharge home with family, and outpatient physical therapy. Discharge Diet: No Restrictions Discharge Activity: Return to Normal Activity, May Shower, Use Walker Weight Bearing Status: Weight bearing as tolerated Call your doctor if you observe: Fever of 101 or Higher, Inability to urinate, Inability to have a bowel movement, Shortness of breath, Chest pain, Uncontrolled pain Home Medications: Medications to take at Discharge Citalopram [Celexa] 40 mg PO DAILY 05/21/16 Levothyroxine [Synthroid] 175 mcg PO DAILY 05/21/16 Lorazepam [Ativan] 1 mg PO BID PRN #4 tab 11/25/17 Calcium Carbonate [Tums] 500 mg PO Q4H PRN PRN tablet 12/05/17 Omeprazole [Prilosec] 20 mg PO DAILY@0800 03/10/18 Senna/Docusate Sodium [Senokot-S] 2 tablet PO BID PRN PRN tablet 03/10/18 Acetaminophen [Tylenol] 1,000 mg PO Q8H PRN tablet 03/27/18 Nystatin Powder [Mycostatin Powder] 1 applic TOPICAL BID PRN bottle 03/27/18 Oxycodone HCl/Acetaminophen [Percocet 5-325] 1 tab PO Q4H PRN PRN 5 Days #20 tab 03/27/18 Polyethylene Glycol 3350 [Miralax] 17 gm PO DAILY #30 packet 03/27/18 Senna/Docusate Sodium [Senokot-S] 2 tab PO BID #60 tab 03/27/18 Sodium Chloride 0.65% [[place] Nasal [place]] 2 spray NASAL TID PRN PRN spray.btl 03/27/18 Following Prescrptions Were Given to Patient: Oxycodone HCl/Acetaminophen [Percocet 5-325] 1 tab PO Q4H PRN PRN 5 Days #20 tab PRN Reason: Pain Polyethylene Glycol 3350 [Miralax] 17 gm PO DAILY #30 packet Senna/Docusate Sodium [Senokot-S] 2 tab PO BID #60 tab Primary Care Physician: Sai Cobian MD [Primary Care Provider] - Please follow up with your Primary Care Physician in: 1 week. Please Follow Up With: [facility] When: [phone] Please Follow Up With: Dr Ray Giraldo When: 2 weeks. Disposition: Home Minutes spent on discharge:: 30 Patient Condition:: Stable Medical Necessity - Tobacco Use Smoking Status: Current every day smoker Tobacco Use: Cigarettes Meaningful Use Info Meaningful Use Diagnoses (Choose all that apply): None applicable
[2018-03-28] MEDS: Levothyroxine 175 MCG Tablet PO (06:00)
[2018-03-28] MEDS: Citalopram 40 MG TABLET PO (06:00)
[2018-03-28] MEDS: Senna/Docusate Sodium 1 Tablet 2 TABLET PO ×2 (06:01→16:58)
[2018-03-28] MEDS: Enoxaparin 40 MG/0.4 ML Syringe SC (06:05)
[2018-03-28] MEDS: LORazepam 1 MG Tablet PO (06:44)
--- NOTE | 2018-03-28 07:58 | EKG12_ITS ---
Test Reason : CHEST PAIN Blood Pressure : / mmHG Vent. Rate : 062 BPM Atrial Rate : 062 BPM P-R Int : 140 ms QRS Dur : 084 ms QT Int : 410 ms P-R-T Axes : 000 076 060 degrees QTc Int : 416 ms Normal sinus rhythm ST & T wave abnormality, consider anterior ischemia Abnormal ECG When compared with ECG of 20-SEP-2016 17:46, No significant change was found Confirmed by CHRIS AREVALO, HEDY ([id number]), supervising film or videotape editor RUBIA BORDEN ([id number]) on 04/04/2018 2:10:53 PM Referred By: Gage Carrion Confirmed By:HEDY PEREZ MD
[2018-03-28] MEDS: Pantoprazole Sodium 20 MG Tablet PO (07:59)
[2018-03-28] MEDS: Calcium Carbonate 500 MG Tablet PO (07:59)
--- NOTE | 2018-03-28 08:04 | NURSING ---
Addendum entered by Sissy Gee 03/28/18 08:29: EKG reviewed by Dr. Carrion, KARLAO. Continue to monitor patient. Patient updated, resting in bed, states pain has improved some. Given PRN TUMS. Will continue to monitor. Original Note: Pt having c/o chest pain. Upon assessment patient describes pain as burning Vitals 125/86, 67, 97.6, 96% RA, 22. Patient has no other complaints, denies SOB, nausea, numbness or tingling. States pain has been occuring for 20 minutes. Heart sounds normal. Lungs clear. Given PRN tums to see if symptoms improve. Dr. Carrion updated, NO for EKG.
--- NOTE | 2018-03-28 08:05 | NURSING ---
AID CAME TO THIS NURSE AND STATED PT STATED HE WAS HAVING CHEST PAIN. REBA CALDERÓN IN ROOM. VITALS WNL, EKG ORDERED. DR KEBEDE AWARE.
[2018-03-28 08:50] VITALS: BP 154/88; PULSE 77; RESP 18; O2SAT 95
--- NOTE | 2018-03-28 09:01 | NURSING ---
PT CALLED OUT AND STATED HE WAS STILL HAVING CHEST PAIN. PT STATED IT MAY BE JUST ACID REFLUX,I GET THAT AT HOME SOME TIMES. VITALS DONE. THIS NURSE ALSO NOTICED BUG BITES OR A RASH TO BOTH OF PT FORE/LOWER AND UPPER ARMS. REPORTED TO REBA CHAU
[2018-03-28] MEDS: oxyCODONE 5 MG Tablet PO ×2 (09:17→20:48)
[2018-03-28 10:00] VITALS: PULSE 83; RESP 18; O2SAT 97
--- NOTE | 2018-03-28 10:48 | NURSING ---
PT COMPLANING OF SHORT OF BREATH AND STILL SOME CHEST PAIN. APPLYED 2L OF OXYGEN. REPORTED TO REBA ECHEVARRIA
--- NOTE | 2018-03-28 11:14 | NURSING ---
PT HAS NOT HAD A BM IN 3 DAYS. PT AGREED TO PRUNE JUICE.
--- NOTE | 2018-03-28 11:24 | MDS.RN ---
Information for the mds was obtained from review of the clinical record, interview of resident, staff, and direct observation of resident's care.
--- NOTE | 2018-03-28 11:50 | NURSING ---
Patient still having c/o pain in chest with inhalation and mild SOB. Lungs with wheezing in lower lobes, heart sounds normal, S1S2 present. Oxygen 95% on RA, put on 2L for comfort, increased to 98%. Dr. Carrion updated, NO for toradol 60mg IM x1, norflex 60mg IM x1 and solumedrol 125mg IM x1. Patient updated.
[2018-03-28] MEDS: Ketorolac 60 MG/2 ML Vial IM (12:44)
[2018-03-28] MEDS: MethylPREDNISolone 125 MG/2 ML Vial IV (12:44)
[2018-03-28] MEDS: Orphenadrine 60 MG/2 ML Ampul IM (12:44)
--- NOTE | 2018-03-28 14:12 | CASEMGMT ---
Social Work Faxed order for outpatient physical therapy to [facility]. Proposed discharge date: 03/31/18 PLAN: Discharge to home with son and outpatient physical therapy. mAie STAFFORD, OUTBOUND TELEMARKETING REPRESENTATIVE
[2018-03-28 16:00] VITALS: BP 133/71; PULSE 64; RESP 16; TEMP 36.4; O2SAT 94
--- NOTE | 2018-03-28 18:55 | NURSING ---
Dr. Bagley in to see pt. New order for NPO after midnight. Ok to have meds with sips of water. Hold Lovenox 03/29. He will call with a time.
--- NOTE | 2018-03-29 03:25 | NURSING ---
Pt had two large formed BM and no concerns voiced earlier.
[2018-03-29] MEDS: Levothyroxine 175 MCG Tablet PO (05:37)
[2018-03-29] MEDS: Citalopram 40 MG TABLET PO (05:37)
[2018-03-29] MEDS: Pantoprazole Sodium 20 MG Tablet PO (08:26)
[2018-03-29 10:00] VITALS: PULSE 78; O2SAT 96
--- NOTE | 2018-03-29 10:40 | NURSING ---
Dr Bagley's office notified of needing time pt is to be in OR for steroid injection. Pt to be in OR @ 1130 for 1230 injection. surgery will be up to get pt
[2018-03-29] MEDS: LORazepam 1 MG Tablet PO (11:33)
--- NOTE | 2018-03-29 11:58 | NURSING ---
pt off unit via bed to OR for steroid injection at this time.
--- NOTE | 2018-03-29 13:51 | NURSING ---
report called from PACU, mac local given, bandaid to lumbar area, ok to return to previous diet. ice area PRN
[2018-03-29 15:45] VITALS: BP 129/77; PULSE 78; RESP 18; TEMP 36.4; O2SAT 95
[2018-03-30] MEDS: Senna/Docusate Sodium 1 Tablet 2 TABLET PO (06:20)
[2018-03-30] MEDS: Citalopram 40 MG TABLET PO (06:21)
[2018-03-30] MEDS: Levothyroxine 175 MCG Tablet PO (06:21)
[2018-03-30] MEDS: Enoxaparin 40 MG/0.4 ML Syringe SC (06:21)
[2018-03-30] MEDS: Pantoprazole Sodium 20 MG Tablet PO (09:03)
[2018-03-30] MEDS: LORazepam 1 MG Tablet PO (09:06)
[2018-03-30 10:00] VITALS: PULSE 76; RESP 16; O2SAT 94
--- NOTE | 2018-03-30 13:28 | CASEMGMT ---
Social Work Resident reporting to not be able to have transportation home tomorrow and is now planning to discharge on this day, team is agreeable to discharge date change per resident request. Resident to discharge to home with son and outpatient physical therapy. Proposed discharge date: 03/30/18 PLAN: Discharge to home with family. Amie STAFFORD, SUPERVISOR CALIBRATION
[2018-03-30 14:45] VITALS: BP 131/98; PULSE 83; RESP 16; TEMP 35.8; O2SAT 94
== END 2018-03-30 15:00 | disposition home or self-care (01) | DRG 948 ==
PROVIDERS: Admitting Provider Family Medicine Geriatric Medicine; Family Provider Family Medicine; PCP Family Medicine; Visit Provider Family Medicine Geriatric Medicine
DX: R53.81 Other malaise (principal); K21.9 Gastro-esophageal reflux disease without esophagitis; E03.9 Hypothyroidism, unspecified; F41.9 Anxiety disorder, unspecified; F32.9 Major depressive disorder, single episode, unspecified; M62.830 Muscle spasm of back; G47.33 Obstructive sleep apnea (adult) (pediatric); M48.07 Spinal stenosis, lumbosacral region; M46.1 Sacroiliitis, not elsewhere classified; F17.210 Nicotine dependence, cigarettes, uncomplicated
CPT/HCPCS: 36415; 80048; 82962; 85025; 93005; 94003; 94660; 97032; 97110; 97116; 97162; 97166; 97530; 97535; 97802; 99406

== ENCOUNTER → 2018-03-29 11:49 | Day surgery (SDC) | payer MEDICARE, MEDICAID, SELFPAY ==
[2018-03-29 12:26] VITALS: BP 120/73; PULSE 78; RESP 18; TEMP 36.6; O2SAT 99; BMI 36.3
[2018-03-29] MEDS: Triamcinolone Acetonide 40 MG/ML Vial (13:10)
[2018-03-29 13:19] VITALS: BP 120/73; BP 143/94; PULSE 72; RESP 16; TEMP 36.5; O2SAT 97
[2018-03-29 13:25] VITALS: BP 120/73; BP 142/78; PULSE 78; RESP 16; O2SAT 95
[2018-03-29 13:30] VITALS: BP 120/73; BP 150/86; PULSE 72; RESP 16; O2SAT 94
[2018-03-29 13:35] VITALS: BP 120/73; BP 144/85; PULSE 69; RESP 16; TEMP 36.9; O2SAT 94
== END ==
PROVIDERS: Family Provider Family Medicine; PCP Family Medicine; Visit Provider Anesthesiology Pain Medicine
PROC: 3E0S3BZ Introduction of Anesthetic Agent into Epidural Space, Percutaneous Approach (ICD-10-PCS; CPT 62322; principal; 2018-03-29 08:45)
DX: G89.29 Other chronic pain (principal); F41.9 Anxiety disorder, unspecified; F32.9 Major depressive disorder, single episode, unspecified; Z79.899 Other long term (current) drug therapy; G47.30 Sleep apnea, unspecified; F17.200 Nicotine dependence, unspecified, uncomplicated; M48.00 Spinal stenosis, site unspecified; M54.10 Radiculopathy, site unspecified
CPT/HCPCS: 62323; 64483; 72020; J7120

== ENCOUNTER 2018-06-03 00:25 | Emergency (ER) | payer MEDICARE, MEDICAID, SELFPAY ==
[2018-06-03 00:26] VITALS: BP 155/97; PULSE 89; RESP 24; TEMP 35.9; BMI 35.3
[2018-06-03] MEDS: morphine 10 MG/ML Syringe IM (01:01)
--- NOTE | 2018-06-03 01:45 | ED.DCSUM_ITS ---
- ER Visit Summary Date of Service: 06/03/18 Chief Complaint: Back pain History of Present Illness: The patient is a 52 M who presents with back pain. He has a history of chronic back pain. He does see pain management. He has had 2 prior hospitalizations this year for intractable back pain. He was then transferred to TCU for rehab and therapy. He states that he has had increased back pain since last night. He does complain of radiation into both legs which she has had previously. He denies numbness tingling fevers abdominal pain urinary retention fecal incontinence. He does note that he has had relief with prior epidural injections. Physical Examination: Afebrile vitals unremarkable Moist mucous membranes Heart regular rate and rhythm Lungs clear Abdomen soft Paraspinal lumbar tenderness Alert Normal strength and sensation of the lower extremities with 5 out of 5 dorsiflexion, plantarflexion, extensor hallucis longus, he does have palpable dorsalis pedis pulses Test Results: Not indicated Emergency Department Course and Treatment: Patient was treated with intramuscular morphine with moderate improvement of symptoms. He is concerned that he is having some difficulty at home. I left a message with social work to see if he will qualify for any further therapy or assistance at home. Patient discharged. He was advised to follow-up with pain management as well. Treatment Plan: [] Disposition: Discharge Impression: Chronic back pain This note was generated with [employer] dictation software. It may contain incorrect words, spelling, and punctuation that were not noted in review of the chart prior to signing ED Disposition - Plan for ED Patient: Chief Complaint: Back Referrals: Sai Cobian MD [Primary Care Provider] -
--- NOTE | 2018-06-03 01:45 | ED.DEP ---
ED Disposition - Plan for ED Patient: Chief Complaint: Back Instructions: ED Chronic Pain Management Referrals: Sai Cobian MD [Primary Care Provider] - Carlitos Bagley MD [STAFF PHYSICIAN] -
[2018-06-03 02:11] VITALS: BP 150/100; PULSE 66; RESP 15; O2SAT 94
== END 2018-06-03 02:12 | disposition home or self-care (01) ==
PROVIDERS: Emergency Provider Emergency Medicine; Family Provider Family Medicine; PCP Family Medicine
DX: G89.29 Other chronic pain (principal); M54.9 Dorsalgia, unspecified; Z72.0 Tobacco use
CPT/HCPCS: 96372; 99283

== ENCOUNTER 2018-09-07 07:33 | Emergency (ER) | payer MEDICARE, MEDICAID, SELFPAY ==
[2018-09-07] VITALS (7 sets, daily range): BP systolic 127–164; BP diastolic 83–108; PULSE 58–83; RESP 12–17; TEMP 36.8; O2SAT 94–98; BMI 37.9
--- NOTE | 2018-09-07 08:03 | EKG12_ITS ---
Test Reason : REPEAT Blood Pressure : / mmHG Vent. Rate : 062 BPM Atrial Rate : 062 BPM P-R Int : 132 ms QRS Dur : 086 ms QT Int : 438 ms P-R-T Axes : 069 072 071 degrees QTc Int : 444 ms Normal sinus rhythm T wave abnormality, consider anterior ischemia Abnormal ECG Confirmed by CHRIS AREVALO, HEDY ([id number]), newspaper photo editor RUBIA BORDEN ([id number]) on 09/11/2018 10:32:22 AM Referred By: GINGER Confirmed By:HEDY PEREZ MD
--- NOTE | 2018-09-07 08:03 | RAD_ITS ---
STUDY: X-RAY CHEST REASON FOR EXAM: Male, 53 years old. Burning chest pain. TECHNIQUE: PA and lateral views of the chest. COMPARISON: Comparison is made with prior study dated October 20, 2016. FINDINGS: EKG electrodes are seen. Findings suggestive of lingular scarring. There is no demonstrated pleural abnormality. There is mild cardiac enlargement. Normal mediastinum and cachorro. Normal visualized pulmonary arteries. Normal visualized aortic arch and descending thoracic aorta. Normal visualized thoracic spine. Normal visualized ribs, clavicles, and shoulders. There is no demonstrated abnormality of the visualized soft tissue structures of the upper abdomen. RAD/Chest PA and Lateral IMPRESSION: Findings in keeping with lingular scarring. Electronically Signed: Ronnell Garcia MD at 9:31 EST , Service support ,
--- NOTE | 2018-09-07 08:04 | ED.DCSUM_ITS ---
- ER Visit Summary Date of Service: 09/07/18 Chief Complaint: chest pain History of Present Illness: The patient is a 53 M who presents for chest pain. Onset was this morning, was across the entire chest with radiation into the jaws, and lasted approximately 10-15 minutes. Patient states it started when he was lying in bed and started coughing. He felt short of breath at that time, and then his chest felt like it was on fire. He currently has no chest discomfort. After the episode he took ibuprofen and half a milligram of Ativan. Patient denies any cardiac history. No diabetes, hypertension, hypercholesterolemia, COPD. He has a history of hypothyroidism and is not taking his medication for 2 days. Also has history of anxiety and depression and is not taking his Celexa for 2 days. Patient denies being on any blood thinners. He does not take daily aspirin. He is a smoker. He denies any abdominal pain, fever, congestion, back pain, headache, urinary symptoms, nausea vomiting or diarrhea or other complaints. Physical Examination: Vital signs: afebrile, hemodynamically stable, no hypoxia on room air General: well nourished, well developed, in no distress Skin: warm, dry, no rash, no pallor HEENT: normocephalic and atraumatic; PERRL, EOMI, diffuse conjunctival injection, left greater than right, mild periorbital puffiness bilaterally, moist mucous membranes Cardiovascular: regular rate and rhythm without murmurs, no peripheral edema, 2+ pulses all distal extremities Respiratory: No increased work of breathing, lungs are clear to auscultation bilaterally, no rales, rhonchi or wheezing Abdominal: Abdomen is soft, nontender with normoactive bowel sounds, no guarding or rebound, no masses MSK: Moves all extremities, no deformities, normal strength Neuro: Awake and alert, oriented ?4. No facial droop, sensation and motor function intact and symmetric Test Results: Abnormal Lab Results 09/07/18 09/07/18 09/07/18 07:53 07:53 11:00 WBC 8.2 RBC 5.15 Hgb 16.3 Hct 48.5 MCV 94.2 H MCH 31.7 MCHC 33.6 RDW 13.4 RDW Differential 44.4 H Plt Count 198 MPV 11.3 Immature Gran % (Auto) 1.000 H Neut % (Auto) 65.1 Lymph % (Auto) 23.3 [place] % (Auto) 8.4 Eos % (Auto) 1.8 Baso % (Auto) 0.4 Absolute Neuts (auto) 5.3 Absolute Lymphs (auto) 1.91 Total Counted Not Reportable Sodium 138 Potassium 3.9 Chloride 102 Carbon Dioxide 23.0 Anion Gap 13 BUN 9 Creatinine 1.10 Estim Creat Clear Calc 69.11 Est GFR (MDRD) Af Amer 91 Est GFR (MDRD) Non-Af 75 BUN/Creatinine Ratio 8.2 L Glucose 99 Calcium 8.8 Total Bilirubin 0.60 AST 41 H ALT 85 H Alkaline Phosphatase 106 Troponin I < 0.015 < 0.015 Total Protein 7.8 Albumin 3.8 Globulin 4.0 Albumin/Globulin Ratio 1.0 TSH 1.13 Clinical Impression(s) from Imaging Studies Chest X-Ray 09/07/18 08:03 IMPRESSION: Findings in keeping with lingular scarring. Electronically Signed: Ronnell Garcia MD at 9:31 EST , Service support , Medications Given Discontinued Medications Al Hydroxide/Mg Hydroxide (Mylanta Ii) 30 ml PO X1 ONE Stop: 09/07/18 08:04 Last Admin: 09/07/18 08:24 Dose: 30 ml Aspirin (Aspirin, Baby) 324 mg PO X1 STA Stop: 09/07/18 08:04 Last Admin: 09/07/18 08:24 Dose: 324 mg Sodium Chloride () 1,000 mls @ 1,000 mls/hr IV .Q1H ONE Stop: 09/07/18 09:02 Last Admin: 09/07/18 08:24 Dose: 1,000 mls/hr Lidocaine HCl (Xylocaine Viscous) 15 ml PO X1 ONE Stop: 09/07/18 08:04 Last Admin: 09/07/18 08:24 Dose: 15 ml Emergency Department Course and Treatment: Patient presents with an episode of chest pain for 10-15 minutes this morning, with onset when he began coughing and feeling short of breath. Patient has no cardiac history but has the risk factors of tobacco use and obesity. Chest x-ray showed no signs of pneumonia or pneumothorax. EKG showed a sinus rhythm no ischemic changes. CBC and CMP were unremarkable. Troponin negative. TSH was checked since patient has not been taking his levothyroxine and it was still within normal limits. Patient received aspirin, and did not receive nitro because he denied having any chest discomfort at this time. Because he describes it as burning and states he has strong history of GERD and is not been taking his omeprazole, he was given a GI cocktail. Afterwards he stated he felt even better. Patient has a heart score of 3, which makes him low risk for 30-day MACE. Delta troponin and EKG were performed. Repeat EKG continued to show sinus rhythm with no ischemic changes. Repeat troponin was negative. While this was being performed, patient stated he had not taken his Celexa for a few days either, and we then discussed possible SSRI withdrawal syndrome. Patient was encouraged to take all his medications as prescribed. Patient discharged home and is to take his Celexa, levothyroxine, and his omeprazole as soon as he gets home. He is also to follow-up with his family doctor as soon as possible to discuss further workup of his chest pain and possible stress test.. Treatment Plan: [] Disposition: [] Impression: Chest pain, medication noncompliance, history of GERD This note was generated with [employer] dictation software. It may contain incorrect words, spelling, and punctuation that were not noted in review of the chart prior to signing ED Disposition - Plan for ED Patient: Disposition: Home or Assisted Living Instructions: ED Chest Pain NonCardiac Referrals: Sai Cobian MD [Primary Care Provider] - 3-5 Days if not improving Additional Instructions: Please take all your medications, including your thyroid medication, Celexa and omeprazole, as prescribed. Please follow-up with your doctor if you continue to have cough, chest burning and discomfort. Return immediately to the emergency department if you have any worsening of your condition or any new concerning symptoms.
[2018-09-07] MEDS: Aspirin 81 MG TAB.CHEW 324 MG PO (08:24)
[2018-09-07] MEDS: 0.9% Normal Saline 1,000 ML 1000 ML IV (08:24)
[2018-09-07] MEDS: Mag Hydrox/Al Hydrox/Simeth 30 ML UDC PO (08:24)
[2018-09-07 08:34] LABS: Absolute Lymphocyte Count 1.91 X10^3/ul (0.83-4.51); Absolute Neutrophil Count 5.3 X10^3/uL (2.0-7.7); Basophil# 0.03 X10^3/uL; Basophil% 0.4 % (0-1); Eosinophil# 0.15 X10^3/uL; Eosinophils% 1.8 % (0-5); Hematocrit 48.5 % (40-54); Hemoglobin 16.3 g/dl (13.0-16.5); Lymphocyte # 1.91 X10^3/ul (4.0); Lymphocyte % 23.3 % (19-41); Mean Corp Hgb Conc 33.6 g/gl (32-36); Mean Corpuscular Hgb 31.7 pg (27.0-32.0); Mean Corpuscular Volume 94.2 fL (80-94); Mean Platelet Vol. 11.3 fl (6.2-12.0); Monocyte# 0.69 X10^3/uL; Monocyte% 8.4 % (0-10); Neutrophil # 5.32 X10^3/uL (2.7-7.7); Neutrophil % 65.1 % (47-70); Platelet Count 198 K/mm3 (150-450); RBC Distribution Width CV 13.4 % (11.6-14.6); RBC Distribution Width SD 44.4 fl (35.1-43.9); Red Blood Count 5.15 M/mm3 (4.6-6.2); White Blood Count 8.2 K/mm3 (4.4-11.0)
[2018-09-07 08:37] LABS: POSITIVE COUNT NO; POSITIVE DIFFERENTIAL NO; POSITIVE MORPHOLOGY NO
[2018-09-07 08:45] LABS: Albumin, Serum 3.8 g/dL (3.2-5.0); BUN 9 mg/dL (7-18); BUN/Creat Ratio 8.2 RATIO (10-20); EST Glomerular Filtration Rate 75 mL/min (>60); Est Glom Filt Rate - Afr Amer 91 mL/min (>60); Estimated Creatinine Clearance 69.11 ml/min; Glucose 99 mg/dL (74-106); Protein, Total 7.8 g/dL (6.4-8.2)
[2018-09-07 08:46] LABS: AST(SGOT) 41 U/L (15-37); Alanine Aminotransfer ALT/SGPT 85 U/L (16-61); Alkaline Phosphatase 106 U/L (45-117); Anion Gap 13 (5-15); Calcium,Total 8.8 mg/dL (8.5-10.1); Chloride 102 mmol/L (98-107); Potassium 3.9 mmol/L (3.5-5.1); Sodium Level 138 mmol/L (136-145); Thyroid Stim Hormone (TSH) 1.13 uIU/mL (0.358-3.74)
--- NOTE | 2018-09-07 10:22 | EKG12_ITS ---
Test Reason : CP Blood Pressure : / mmHG Vent. Rate : 088 BPM Atrial Rate : 088 BPM P-R Int : 124 ms QRS Dur : 078 ms QT Int : 360 ms P-R-T Axes : 025 077 063 degrees QTc Int : 435 ms Normal sinus rhythm T wave abnormality, consider anterior ischemia Abnormal ECG Confirmed by CHRIS AREVALO, HEDY ([id number]), sound editor RUBIA BORDEN ([id number]) on 09/11/2018 10:34:16 AM Referred By: GINGER Confirmed By:HEDY PEREZ MD
== END 2018-09-07 12:41 | disposition home or self-care (01) ==
PROVIDERS: Emergency Provider Emergency Medicine; Family Provider Family Medicine; PCP Family Medicine
DX: R07.9 Chest pain, unspecified (principal); K21.9 Gastro-esophageal reflux disease without esophagitis; Z91.14 Patient's other noncompliance with medication regimen; E03.9 Hypothyroidism, unspecified; F32.9 Major depressive disorder, single episode, unspecified; F41.9 Anxiety disorder, unspecified; F17.200 Nicotine dependence, unspecified, uncomplicated
CPT/HCPCS: 71046; 80053; 84443; 84484; 85025; 93005; 96360; 96361; 99285; J7030; A4216

== ENCOUNTER 2018-10-13 21:19 | Inpatient (IN) | payer MEDICARE, MEDICAID, SELFPAY ==
[2018-09-07 07:37] VITALS: BMI 37.9
[2018-10-13 21:20] VITALS: BP 146/82; PULSE 63; RESP 16; TEMP 36.3; BMI 38.6
[2018-10-13 21:27] VITALS: RESP 18
--- NOTE | 2018-10-13 21:40 | RAD_ITS ---
HISTORY: FALL, HIT SHOULDER, PAIN COMPARISON: None FINDINGS: XR Shoulder Min 2 Views: Left SOFT TISSUES: No acute findings. No radiopaque foreign body. BONES/JOINTS: No visible fracture. Suboptimal evaluation of the upper aspect of the humeral head and of the greater tuberosity both of which are partially obscured by the overlapping acromion. Normal alignment. Degenerative changes are noted. No destructive changes observed. RAD/Shoulder min 2 Views IMPRESSION: No apparent fracture. Suboptimal evaluation of the upper aspect of the humeral head and of the greater tuberosity. at 2201 Reported and signed by: Yaya Ivey MD Electronically Signed: Yaya Ivey, at 21:59 EDT Tel , Service support ,
[2018-10-13] MEDS: Naproxen 500 MG Tablet PO (22:11)
--- NOTE | 2018-10-13 22:16 | ED.VIS.GEN ---
History of Present Illness Chief Complaint: Upper Extremity Injury Informant: Patient Onset: Month(s) - Fall 1 month ago Context: Sudden Onset Timing: Continuous Quality: Pain Current Severity: Mild Maximum Severity: Moderate Worsened by: Movement of left upper extremity Relieved by: Better with rest Associated Symptoms: No associated symptoms Narrative: Patient is a 53-year-old [id number] male who fell 1 month ago. He presents because of persistent pain left shoulder. He reports pain with movement. He denies paresthesia, anesthesia motors. He denies cardiac respiratory symptoms. He denies any outward signs of trauma. He denies prior injury to the shoulder. Prior similar symptoms: Yes Recent Illness/Hospitalization: Yes - Past Medical History (1) Anxiety Status: Chronic (2) Depression Status: Chronic (3) GERD (gastroesophageal reflux disease) Status: Chronic (4) Hypothyroidism Status: Chronic (5) Multilevel spinal canal stenosis Status: Chronic (6) Obstructive sleep apnea Status: Chronic Past Medical History - Allergies and Home Meds Allergies/Adverse Reactions: Allergies No Known Allergies Allergy (Verified 10/13/18 21:20) Primary Care Physician: Sai Cobian MD [Primary Care Provider] - Prior records reviewed: Yes Surgical History: noncontributory, tonsillectomy Lives: Alone Smoking Status: Current every day smoker Alcohol: None - Family History Maternal Family History: Reports: No pertinent history Paternal Family History: Reports: No pertinent history Review of Systems General: Denies: Chills, Fever, Subjective, Sweats Eyes: Denies: Visual changes - bilaterally, Blurred Vision - bilaterally, Diplopia ENT: Denies: Bilateral ear pain, Rhinorrhea, Sore throat Cardiovascular: Denies: Chest pain, Palpitations, Heart racing Respiratory: Denies: Dyspnea, Cough, Dyspnea on exertion, Orthopnea Gastrointestinal: Denies: Abdominal pain, Nausea, Vomiting, Diarrhea, Melena, Hematochezia Musculoskeletal: Reports: Back pain - History of chronic back pain, Extremity Pain. Denies: Myalgias, Arthralgias, Neck pain Skin: Denies: Rash, Wounds Neurological: Denies: Headache, Weakness, Parasthesia, Numbness Physical Exam Vital Signs/Narrative: Vital Signs Temp Pulse Resp BP 10/13/18 21:27 18 10/13/18 21:20 97.4 F L 63 16 146/82 H Inital Vital Signs reviewed: Yes General: Well nourished, Well developed, Unkempt, No Acute Distress Head: Normocephalic, Atraumatic Eyes: Perrl, EOMI. Negative for: Pale conjunctiva, Scleral icterus ENT: Moist mucous membranes, No rhinorrhea, TM's clear Neck: Supple, Nontender, No lymphadenopathy, No JVD Cardiovascular: Regular rate, Regular rhythm, No murmurs, Normal S1, Normal S2 Respiratory: No distress, CTA bilaterally, Chest nontender Extremities: No edema, Tenderness - Tenderness proximal left shoulder., - - Axillary, median, radial and ulnar function intact. Biceps, brachialis and triceps reflex are 1-2+ and symmetric. There is no pain the patient with the clavicle or AC joint. He has pain with passive internal/external rotation and abduction past 30 degrees. He has a negative drop test.. Negative for: Nontender Skin: Normal color, No rash, No Trauma Neurological: Alert, Oriented x3, Cranial nerves II-XII grossly intact, Normal Strength, Normal Sensation, Normal DTR Psychological: - - Affect is flat Diagnostic/Tx/Re-eval Chest X-Ray - ED: 2 View, Read by ED Physician 2 view x-ray of the shoulder reveals no acute process. There is no evidence of subluxation or dislocation. There is no evidence of healing fracture or Hill-Sachs deformity. The AC joint is normal. - Medical Decision Making With pain 1 month after fall will obtain x-ray to determine if there is loose body, fracture or healing fracture. Since there is no abnormally no on the x-ray he was treated with NSAIDs since there is no contraindication. I was informed at 2220 by patient's nurse that he requested admission to the TCU unit because he has not showered in a month. Will place consult to case management for outpatient follow-up and assistance. ED Disposition - Plan for ED Patient: Disposition: Home or Assisted Living Diagnosis: Acute pain of left shoulder due to trauma Instructions: ED Shoulder Pain [facility] Prescriptions: Naproxen [Naprosyn] 500 mg PO BID #14 tablet Referrals: Sai Cobian MD [Primary Care Provider] - 3-5 Days if not improving
--- NOTE | 2018-10-13 22:20 | ED.DCSUM_ITS ---
History of Present Illness Chief Complaint: Upper Extremity Injury Informant: Patient Onset: Month(s) - Fall 1 month ago Context: Sudden Onset Timing: Continuous Quality: Pain Current Severity: Mild Maximum Severity: Moderate Worsened by: Movement of left upper extremity Relieved by: Better with rest Associated Symptoms: No associated symptoms Narrative: Patient is a 53-year-old [id number] male who fell 1 month ago. He presents because of persistent pain left shoulder. He reports pain with movement. He denies paresthesia, anesthesia motors. He denies cardiac respiratory symptoms. He denies any outward signs of trauma. He denies prior injury to the shoulder. Prior similar symptoms: Yes Recent Illness/Hospitalization: Yes - Past Medical History (1) Anxiety Status: Chronic (2) Depression Status: Chronic (3) GERD (gastroesophageal reflux disease) Status: Chronic (4) Hypothyroidism Status: Chronic (5) Multilevel spinal canal stenosis Status: Chronic (6) Obstructive sleep apnea Status: Chronic Past Medical History - Allergies and Home Meds Allergies/Adverse Reactions: Allergies No Known Allergies Allergy (Verified 10/13/18 21:20) Primary Care Physician: Sai Cobian MD [Primary Care Provider] - Prior records reviewed: Yes Surgical History: noncontributory, tonsillectomy Lives: Alone Smoking Status: Current every day smoker Alcohol: None - Family History Maternal Family History: Reports: No pertinent history Paternal Family History: Reports: No pertinent history Review of Systems General: Denies: Chills, Fever, Subjective, Sweats Eyes: Denies: Visual changes - bilaterally, Blurred Vision - bilaterally, Diplopia ENT: Denies: Bilateral ear pain, Rhinorrhea, Sore throat Cardiovascular: Denies: Chest pain, Palpitations, Heart racing Respiratory: Denies: Dyspnea, Cough, Dyspnea on exertion, Orthopnea Gastrointestinal: Denies: Abdominal pain, Nausea, Vomiting, Diarrhea, Melena, Hematochezia Musculoskeletal: Reports: Back pain - History of chronic back pain, Extremity Pain. Denies: Myalgias, Arthralgias, Neck pain Skin: Denies: Rash, Wounds Neurological: Denies: Headache, Weakness, Parasthesia, Numbness Physical Exam Vital Signs/Narrative: Vital Signs Temp Pulse Resp BP 10/13/18 21:27 18 10/13/18 21:20 97.4 F L 63 16 146/82 H Inital Vital Signs reviewed: Yes General: Well nourished, Well developed, Unkempt, No Acute Distress Head: Normocephalic, Atraumatic Eyes: Perrl, EOMI. Negative for: Pale conjunctiva, Scleral icterus ENT: Moist mucous membranes, No rhinorrhea, TM's clear Neck: Supple, Nontender, No lymphadenopathy, No JVD Cardiovascular: Regular rate, Regular rhythm, No murmurs, Normal S1, Normal S2 Respiratory: No distress, CTA bilaterally, Chest nontender Extremities: No edema, Tenderness - Tenderness proximal left shoulder., - - Axillary, median, radial and ulnar function intact. Biceps, brachialis and triceps reflex are 1-2+ and symmetric. There is no pain the patient with the clavicle or AC joint. He has pain with passive internal/external rotation and abduction past 30 degrees. He has a negative drop test.. Negative for: N ontender Skin: Normal color, No rash, No Trauma Neurological: Alert, Oriented x3, Cranial nerves II-XII grossly intact, Normal Strength, Normal Sensation, Normal DTR Psychological: - - Affect is flat Diagnostic/Tx/Re-eval Chest X-Ray - ED: 2 View, Read by ED Physician 2 view x-ray of the shoulder reveals no acute process. There is no evidence of subluxation or dislocation. There is no evidence of healing fracture or Hill- Sachs deformity. The AC joint is normal. - Medical Decision Making With pain 1 month after fall will obtain x-ray to determine if there is loose body, fracture or healing fracture. Since there is no abnormally no on the x-ray he was treated with NSAIDs since there is no contraindication. I was informed at 2220 by patient's nurse that he requested admission to the TCU unit because he has not showered in a month. Will place consult to case management for outpatient follow-up and assistance. ED Disposition - Plan for ED Patient: Disposition: Home or Assisted Living Diagnosis: Acute pain of left shoulder due to trauma Instructions: ED Shoulder Pain [facility] Prescriptions: Naproxen [Naprosyn] 500 mg PO BID #14 tablet Referrals: Sai Cobian MD [Primary Care Provider] - 3-5 Days if not improving
[2018-10-14] VITALS (11 sets, daily range): BP systolic 113–144; BP diastolic 50–80; PULSE 59–80; RESP 16–19; TEMP 36.4–36.8; O2SAT 94–99; BMI 38.0; BMI 38.1
--- NOTE | 2018-10-14 00:46 | PCM.HP.STD ---
Problem List (1) Debility Status: Acute (2) Right shoulder pain Status: Acute History of Present Illness Date of Admission: 10/14/18 Chief Complaint: left shoulder pain The patient is a 53 year old M with a significant history of tobacco abuse; cerebral palsy; and anxiety disorder who presented with 1 month history of progressively worsening excruciating left shoulder pain. He developed this pain after a fall. He reported that he has bilateral leg weakness due to cerebral palsy and he uses his hands typically. Because of his left shoulder pain he only uses his right hand and he feels he has even pulled a muscle from continuous use of his right shoulder. His left shoulder pain increases with movement and it improves with rest. His left shoulder pain is nonradiating. Also he has chronic lower back pain which he feels is worsening. Patient feels that because of his left shoulder pain he is unable to take care of himself. He has a son who lives with him but his son will be traveling soon and patient is hoping to get better before his son travels. Initially patient was discharged home at the ED but he reported that he cannot take care of himself and is hoping to be admitted to our TCU. He has been at TCU for about 2 times and he feels that being at the TCU again at this time will be of help to him. Past Medical History Past Medical History (Chronic Problems): Chronic Problems GERD (gastroesophageal reflux disease) (Chronic) Obstructive sleep apnea (Chronic) Multilevel spinal canal stenosis (Chronic) Hypothyroidism (Chronic) Anxiety (Chronic) Depression (Chronic) Allergies No Known Allergies Allergy (Verified 10/13/18 21:20) Home Medications: Ambulatory Orders Medication Instructions Recorded Citalopram [Celexa] 40 mg PO DAILY 05/21/16 Levothyroxine [Synthroid] 175 mcg PO DAILY 05/21/16 Lorazepam [Ativan] 1 mg PO BID PRN #4 tab 11/25/17 Omeprazole [Prilosec] 20 mg PO DAILY@0800 03/10/18 Naproxen [Naprosyn] 500 mg PO BID #14 tablet 10/13/18 traMADol [Ultram] 50 mg PO DAILY PRN 10/13/18 Surgical History: tonsillectomy, - - Bilateral hand surgery for trigger finger. Lives: With Family Smoking Status: Current every day smoker Alcohol: Occasional - *Family History Maternal History Items: Diabetes, - Paternal History Items: - - Patient was adopted and he does not know his paternal medical history. Review of Systems Constitutional: Denies: Chills, Fever, Weight Change HEENT: Denies: Head Aches, Sinus Congestion, Sinus Drainage Cardiovascular: Denies: Chest Pain, Palpitations Respiratory: Denies: Cough, Shortness of breath at rest, Sputum production Gastrointestinal: Denies: Abdominal Pain, Nausea, Vomiting Genitourinary: Denies: Dysuria Musculoskeletal: Reports: Back Pain - Lower back pain, Joint Pain - Left shoulder pain and right shoulder pain. Denies: Joint Tenderness Skin: Denies: Rash, Wounds Neurological: Denies: Numbness, Tingling, Focal weakness Psychiatric: Denies: Anxiety, Depression, Homicidal Ideations, Suicidal Ideations Hematologic/ Lymphatic: Denies: Easy Bruising, Easy Bleeding VTE Information - Inpt Only VTE Present on Admission: No VTE Mechan Device Prophylaxis: None VTE Pharm Prophylaxis ordered?: Yes Patient Problems: Active and Suspected Problems Acute pain of left shoulder due to trauma (Acute) Debility (Acute) Right shoulder pain (Acute) - Physical Exam General: Alert, Oriented x3, Cooperative HEENT: Atraumatic, PERRLA, EOMI, Normocephalic Neck: Supple, No JVD, Negative Carotid Bruits Lungs: Clear to auscultation, Normal air movement Cardiovascular: Regular rate, No murmurs Abdomen: Bowel Sounds Present, Soft, Non Tender Extremities: No edema, Capillary Refill Less than 3 Seconds Skin: No rashes, No breakdown Musculoskeletal: Tenderness - Left shoulder, - - Varus bending of bilateral feet. Neurological: Neuro grossly intact Psych/Mental Status: Normal Affect, Appropriate Vital Signs Temp Pulse Resp BP 97.4 F L 63 18 146/82 H 10/13/18 21:20 10/13/18 21:20 10/13/18 21:27 10/13/18 21:20 Weight: 105.233 kg Body Mass Index (BMI) 38.6 Assessment/Plan All Active Problems Acute pain of left shoulder due to trauma (Acute) Debility (Acute) Right shoulder pain (Acute) Intractable low back pain (Acute) The patient is a 53 year old M with a significant history of cerebral palsy; tobacco abuse; and anxiety disorder who presented with 1 month history of progressively worsening excruciating left shoulder pain who is unable to take care of himself at home and is seeking for placement. Debility Secondary to left shoulder pain; and cerebral palsy as well as chronic lower back pain His x-ray of the shoulder was unremarkable. Patient was given naproxen 500 mg in the emergency department and was actually prescribed naproxen outpatient but patient decided to stay at the hospital for placement. We will continue naproxen while inpatient. Review of old records showed that his creatinine on 09/07/2018 was in the normal range. PT and OT to work the patient. Case Management was consulted from the ED for placement; continued. Home Ultram continued. Cerebral palsy PT and OT to work with patient. Chronic low back pain Home Ultram continued as above. Anxiety disorder Ativan continued. Tobacco abuse He smokes about a third of a pack daily. Counseled. Declined nicotine patch. DVT prophylaxis: subcutaneous heparin. Code Visit OBSV E&M: 89798 Initial observation care L3
[2018-10-14] MEDS: Levothyroxine 175 MCG Tablet PO (06:10)
[2018-10-14] MEDS: Citalopram 40 MG TABLET PO (10:26)
[2018-10-14] MEDS: Naproxen 500 MG Tablet PO ×2 (10:26→16:46)
[2018-10-14] MEDS: Enoxaparin 40 MG/0.4 ML Syringe SC (10:26)
[2018-10-14] MEDS: Pantoprazole Sodium 20 MG Tablet PO (10:26)
[2018-10-14] MEDS: LORazepam 1 MG Tablet PO (11:51)
--- NOTE | 2018-10-14 12:15 | PCM.PN.HOSP ---
Patient Problems: Active and Suspected Problems Acute pain of left shoulder due to trauma (Acute) Debility (Acute) Right shoulder pain (Acute) Subjective: left should pain after a fall at home on September 15. At night, patient tripped to the lights were out he braced himself with his left arm into a wall. Has had pain ever since. He has cerebral palsy does walk but does have to help get himself up primarily using his arms. And by doing so, seems to have aggravated his left arm further. Patient lives with the son he does assist patient is leaving due to some reserve and then is moving to [place] thereafter. Patient concern is that he is unable to care for himself and states that he is not taking a bath or shower in 1 month. Vitals/I&O's: Vital Signs Temp Pulse Resp BP Pulse Ox 36.8 C 67 18 132/80 H 96 10/14/18 10:19 10/14/18 10:19 10/14/18 10:19 10/14/18 10:19 10/14/18 10:19 Oxygen Delivery Method Room Air Weight: 103.8 kg Body Mass Index (BMI) 38.0 Intake and Output for Last 24 Hours 10/12/18 10/13/18 10/14/18 23:59 23:59 23:59 Intake Total 570 / 570 Balance 570 / 570 General: Alert, No apparent distress HEENT: Atraumatic, Normocephalic Oral: Moist Mucosa, No Gingival or Mucosal Lesions/ Ulcerations Neck: No Nodes, Thyroid Normal Size and Texture Lungs: Clear to auscultation, Normal air movement, No rhonchi, No wheeze Cardiovascular: Regular rate, Regular Rhythm, Normal S1, Normal S2, No murmurs Abdomen: Bowel Sounds Present, Soft, Non Tender, Non-Distended, Obese Extremities: No edema, No Calf Tenderness Skin: No rashes, No breakdown Musculoskeletal: - - Tender palpation anterior glenohumeral joint, no effusions, no warmth. Patient had limited active range of motion with his left shoulder and as he is not able to lift his left arm past 80degrees anteriorly or laterally. Current Medications Bisacodyl (Dulcolax) 5 mg PO DAILY PRN PRN PRN Reason: Constipation Citalopram Hydrobromide (Celexa) 40 mg PO DAILY TONY Last Admin: 10/14/18 10:26 Dose: 40 mg Enoxaparin Sodium (Lovenox) 40 mg SC DAILY@1000 COUNTS INCLUDE 234 BEDS AT THE [facility] Last Admin: 10/14/18 10:26 Dose: 40 mg Levothyroxine Sodium (Synthroid) 175 mcg PO DAILY@0600 COUNTS INCLUDE 234 BEDS AT THE [facility] Last Admin: 10/14/18 06:10 Dose: 175 mcg Lorazepam (Ativan) 1 mg PO BID PRN PRN PRN Reason: ANXIETY Last Admin: 10/14/18 11:51 Dose: 1 mg Magnesium Hydroxide (Milk Of Magnesia) 30 ml PO DAILY PRN PRN PRN Reason: Constipation Naproxen (Naprosyn) 500 mg PO BIDCM COUNTS INCLUDE 234 BEDS AT THE [facility] Last Admin: 10/14/18 10:26 Dose: 500 mg Pantoprazole Sodium (Protonix) 20 mg PO DAILY@0800 COUNTS INCLUDE 234 BEDS AT THE [facility] Last Admin: 10/14/18 10:26 Dose: 20 mg Sodium Chloride () 5 - 15 ml IV UD PRN PRN Reason: SALINE FLUSH Tramadol HCl (Ultram) 50 mg PO DAILY PRN PRN PRN Reason: PAIN Medical Necessity - Tobacco Use Smoking Status: Current every day smoker Tobacco Use: Cigarettes Assessment/Plan All Active Problems Acute pain of left shoulder due to trauma (Acute) Debility (Acute) Right shoulder pain (Acute) Intractable low back pain (Acute) 1. Suspected left rotator cuff tear or sprain No signs or symptoms of septic arthritis. I feel the patient likely had some rotator cuff tear when he fell. Recommendation is for physical therapy. If that does not seem to improve then patient will need follow-up with orthopedics and likely get some imaging and further evaluation. Explained to patient that surgery is a last resort. 2. Cerebral palsy: PT OT 3. Failure to thrive await therapy evaluation may need SNF 4. DVT proph: LMWH 5. Disposition: Pending therapy evaluation but suspect patient may require [facility]ci facility. I did advise patient that he is under observation status and that case management will need to need to see about coverage. Patient states he does have Medicare and Medicaid but will defer that to case management to further discuss. Did advise patient that if he is straight Medicare and observation that he may be financially responsible go to his fci facility. Code Visit Procedures: Other Procedure - See Report - non-billable rounding.
--- NOTE | 2018-10-14 12:21 | PN_ITS ---
Patient Problems: Active and Suspected Problems Acute pain of left shoulder due to trauma (Acute) Debility (Acute) Right shoulder pain (Acute) Subjective: left should pain after a fall at home on September 15. At night, patient tripped to the lights were out he braced himself with his left arm into a wall. Has had pain ever since. He has cerebral palsy does walk but does have to help get himself up primarily using his arms. And by doing so, seems to have aggravated his left arm further. Patient lives with the son he does assist patient is leaving due to some reserve and then is moving to [place] thereafter. Patient concern is that he is unable to care for himself and states that he is not taking a bath or shower in 1 month. Vitals/I&O's: Vital Signs Temp Pulse Resp BP Pulse Ox 36.8 C 67 18 132/80 H 96 10/14/18 10:19 10/14/18 10:19 10/14/18 10:19 10/14/18 10:19 10/14/18 10:19 Oxygen Delivery Method Room Air Weight: 103.8 kg Body Mass Index (BMI) 38.0 Intake and Output for Last 24 Hours 10/12/18 10/13/18 10/14/18 23:59 23:59 23:59 Intake Total 570 / 570 Balance 570 / 570 General: Alert, No apparent distress HEENT: Atraumatic, Normocephalic Oral: Moist Mucosa, No Gingival or Mucosal Lesions/ Ulcerations Neck: No Nodes, Thyroid Normal Size and Texture Lungs: Clear to auscultation, Normal air movement, No rhonchi, No wheeze Cardiovascular: Regular rate, Regular Rhythm, Normal S1, Normal S2, No murmurs Abdomen: Bowel Sounds Present, Soft, Non Tender, Non-Distended, Obese Extremities: No edema, No Calf Tenderness Skin: No rashes, No breakdown Musculoskeletal: - - Tender palpation anterior glenohumeral joint, no effusions, no warmth. Patient had limited active range of motion with his left shoulder and as he is not able to lift his left arm past 80degrees anteriorly or laterally. Current Medications Bisacodyl (Dulcolax) 5 mg PO DAILY PRN PRN PRN Reason: Constipation Citalopram Hydrobromide (Celexa) 40 mg PO DAILY TONY Last Admin: 10/14/18 10:26 Dose: 40 mg Enoxaparin Sodium (Lovenox) 40 mg SC DAILY@1000 [facility] Last Admin: 10/14/18 10:26 Dose: 40 mg Levothyroxine Sodium (Synthroid) 175 mcg PO DAILY@0600 [facility] Last Admin: 10/14/18 06:10 Dose: 175 mcg Lorazepam (Ativan) 1 mg PO BID PRN PRN PRN Reason: ANXIETY Last Admin: 10/14/18 11:51 Dose: 1 mg Magnesium Hydroxide (Milk Of Magnesia) 30 ml PO DAILY PRN PRN PRN Reason: Constipation Naproxen (Naprosyn) 500 mg PO BIDCM [facility] Last Admin: 10/14/18 10:26 Dose: 500 mg Pantoprazole Sodium (Protonix) 20 mg PO DAILY@0800 [facility] Last Admin: 10/14/18 10:26 Dose: 20 mg Sodium Chloride () 5 - 15 ml IV UD PRN PRN Reason: SALINE FLUSH Tramadol HCl (Ultram) 50 mg PO DAILY PRN PRN PRN Reason: PAIN Medical Necessity - Tobacco Use Smoking Status: Current every day smoker Tobacco Use: Cigarettes Assessment/Plan All Active Problems Acute pain of left shoulder due to trauma (Acute) Debility (Acute) Right shoulder pain (Acute) Intractable low back pain (Acute) 1. Suspected left rotator cuff tear or sprain * No signs or symptoms of septic arthritis. I feel the patient likely had some rotator cuff tear when he fell. Recommendation is for physical therapy. If that does not seem to improve then patient will need follow-up with orthopedics and likely get some imaging and further evaluation. Explained to patient that surgery is a last resort. 2. Cerebral palsy: * PT OT 3. Failure to thrive * await therapy evaluation * may need SNF 4. DVT proph: LMWH 5. Disposition: Pending therapy evaluation but suspect patient may require senior living facility. I did advise patient that he is under observation status and that case management will need to need to see about coverage. Patient states he does have Medicare and Medicaid but will defer that to case management to further discuss. Did advise patient that if he is straight Medicare and observation that he may be financially responsible go to his senior living facility. Code Visit Procedures: Other Procedure - See Report - non-billable rounding.
[2018-10-14] MEDS: Lidocaine 5% Patch 1 PATCH TOPICAL (16:46)
[2018-10-14] MEDS: oxyCODONE 5 MG Tablet PO (16:46)
[2018-10-14] MEDS: Acetaminophen 500 MG Tablet 1000 MG PO (21:50)
[2018-10-15 03:35] VITALS: BP 104/78; PULSE 59; RESP 16; TEMP 36.7; O2SAT 97
[2018-10-15] MEDS: oxyCODONE 5 MG Tablet PO ×3 (04:05→23:33)
[2018-10-15] MEDS: Levothyroxine 175 MCG Tablet PO (06:19)
[2018-10-15 07:15] VITALS: O2SAT 96
[2018-10-15 10:23] VITALS: BP 132/65; PULSE 66; RESP 16; TEMP 36.5; O2SAT 96
--- NOTE | 2018-10-15 10:30 | CASEMGMT ---
SW met with patient introduced self and role at [facility]. Patient wants to go to TCU. SW explained to him that he may not get his qualifying stay, therefore he would have to go to a facility on his Medicaid. SW told him TCU does not take Medicaid. He did not understand why he got his stay last time he was here and not this time. SW explained something like his labs or vitals could have been different. SW told him SW can get him a list of local SNF's. Dr Choudhury went in to talk with patient. He had SW go with him as patient is asking again about qualifying stay etc. Patient said again that he doesn't understand why this stay is different than last time. He said he came in for the same things. SW told him again SW cannot answer to his visit last time, but this visit he does not meet medical criteria to be in the hospital 3 midnights. SW told him SW can check back a little later to see what facilities he has selected. Ira AYERS MSW
[2018-10-15] MEDS: Pantoprazole Sodium 20 MG Tablet PO (10:31)
[2018-10-15] MEDS: Lidocaine 5% Patch 1 PATCH TOPICAL (10:31)
[2018-10-15] MEDS: Citalopram 40 MG TABLET PO (10:31)
[2018-10-15] MEDS: Naproxen 500 MG Tablet PO ×2 (10:32→17:15)
[2018-10-15] MEDS: Enoxaparin 40 MG/0.4 ML Syringe SC (10:32)
--- NOTE | 2018-10-15 11:28 | PCM.TXEXTCAR ---
- Diet 10/14/18 01:20 Diet: Regular Diet Food consistency:: Regular Liquid Consistency:: Regular/Thin - Therapies Weight Bearing: Full weight bearing Physical Therapy: Eval and Treat Occupational Therapy: Eval and Treat - Allergies/Procedures Done in Hospital Allergies/Adverse Reactions: Allergies No Known Allergies Allergy (Verified 10/13/18 21:20) Procedures: None - Type of Care/Length of Stay Estimated LOS: Convalescent Care Less Than 30 days Type of Care Needed: Skilled Rehab Potential: Fair Prognosis: Fair - Additional Orders/Day of Discharge Day of Discharge: 10/15/18 - Follow Up Care Primary Care Physician: Sai Cobian MD [Primary Care Provider] - 3-5 Days if not improving
--- NOTE | 2018-10-15 11:45 | PCM.PN.HOSP ---
Patient Problems: Active and Suspected Problems Acute pain of left shoulder due to trauma (Acute) Debility (Acute) Right shoulder pain (Acute) Subjective: Still with back and shoulder pain. Wants to go to TCU. Vitals/I&O's: Vital Signs Temp Pulse Resp BP Pulse Ox 36.5 C L 66 16 132/65 H 96 10/15/18 10:23 10/15/18 10:23 10/15/18 10:23 10/15/18 10:23 10/15/18 10:23 Oxygen Delivery Method Room Air Weight: 103.8 kg Body Mass Index (BMI) 38.0 Intake and Output for Last 24 Hours 10/13/18 10/14/18 10/15/18 23:59 23:59 23:59 Intake Total 1869 Balance 1869 General: Alert, No apparent distress HEENT: Atraumatic, Normocephalic Oral: Moist Mucosa, No Gingival or Mucosal Lesions/ Ulcerations Psych/Mental Status: Flat Affect Current Medications Acetaminophen (Tylenol) 1,000 mg PO Q8H PRN PRN PRN Reason: PAIN Last Admin: 10/14/18 21:50 Dose: 1,000 mg Bisacodyl (Dulcolax) 5 mg PO DAILY PRN PRN PRN Reason: Constipation Citalopram Hydrobromide (Celexa) 40 mg PO DAILY [facility] Last Admin: 10/15/18 10:31 Dose: 40 mg Enoxaparin Sodium (Lovenox) 40 mg SC DAILY@1000 [facility] Last Admin: 10/15/18 10:32 Dose: 40 mg Levothyroxine Sodium (Synthroid) 175 mcg PO DAILY@0600 [facility] Last Admin: 10/15/18 06:19 Dose: 175 mcg Lidocaine (Lidoderm Patch) 1 patch TOPICAL DAILY [facility]; Protocol Last Admin: 10/15/18 10:31 Dose: 1 patch Lorazepam (Ativan) 1 mg PO BID PRN PRN PRN Reason: ANXIETY Last Admin: 10/14/18 11:51 Dose: 1 mg Magnesium Hydroxide (Milk Of Magnesia) 30 ml PO DAILY PRN PRN PRN Reason: Constipation [facility] Last Admin: 10/15/18 10:32 Dose: 500 mg Oxycodone HCl (Oxyir) 5 mg PO Q6H PRN PRN PRN Reason: SEVERE PAIN (6-10/10) Last Admin: 10/15/18 04:05 Dose: 5 mg Pantoprazole Sodium (Protonix) 20 mg PO DAILY@0800 [facility] Last Admin: 10/15/18 10:31 Dose: 20 mg Sodium Chloride () 5 - 15 ml IV UD PRN PRN Reason: SALINE FLUSH Medical Necessity - Tobacco Use Smoking Status: Current every day smoker Tobacco Use: Cigarettes Assessment/Plan All Active Problems Acute pain of left shoulder due to trauma (Acute) Debility (Acute) Right shoulder pain (Acute) Intractable low back pain (Acute) 1. Suspected left rotator cuff tear or sprain No signs or symptoms of septic arthritis. I feel the patient likely had some rotator cuff tear when he fell. Recommendation is for physical therapy. If that does not seem to improve then patient will need follow-up with orthopedics and likely get some imaging and further evaluation. Explained to patient that surgery is a last resort. 2. Cerebral palsy: PT OT 3. Failure to thrive await therapy evaluation may need SNF 4. DVT proph: LMWH 5. Disposition: Therapy has recommended SNF Status has now changed to admission from observation. Despite, there is no medical necessity to keep his stay the 3 midnights mandated by Medicare. He asked me to review why this occurred in the past. I reviewed the admission from November 2017 (where I was involved) and documented at that time there was no medical necessity for his hospitalization. Patient has been encouraged to review facilities that would accept his Medicaid (TCU does not). He says he will look at. Reassurance provided to the patient that other facilities can accommodate him with CP. Hopefully, the patient in [place] will review the facilities and make a decision. I am concerned he may stall, so that he makes his 3 midnights. Patient has asked for a 2nd opinion. I told him I am going off service and another hospitalist will be assuming his care on the . Greater than 35 minutes of which greater than 50% of the time was counseling the patient on the lack of medical justification of his hospitalization and that although his problems are gradually worse, they are not new. Code Visit Inpatient E&M: 68465 Subs Hosp L3
--- NOTE | 2018-10-15 11:55 | PN_ITS ---
Patient Problems: Active and Suspected Problems Acute pain of left shoulder due to trauma (Acute) Debility (Acute) Right shoulder pain (Acute) Subjective: Still with back and shoulder pain. Wants to go to TCU. Vitals/I&O's: Vital Signs Temp Pulse Resp BP Pulse Ox 36.5 C L 66 16 132/65 H 96 10/15/18 10:23 10/15/18 10:23 10/15/18 10:23 10/15/18 10:23 10/15/18 10:23 Oxygen Delivery Method Room Air Weight: 103.8 kg Body Mass Index (BMI) 38.0 Intake and Output for Last 24 Hours 10/13/18 10/14/18 10/15/18 23:59 23:59 23:59 Intake Total 1869 Balance 1869 General: Alert, No apparent distress HEENT: Atraumatic, Normocephalic Oral: Moist Mucosa, No Gingival or Mucosal Lesions/ Ulcerations Psych/Mental Status: Flat Affect Current Medications Acetaminophen (Tylenol) 1,000 mg PO Q8H PRN PRN PRN Reason: PAIN Last Admin: 10/14/18 21:50 Dose: 1,000 mg Bisacodyl (Dulcolax) 5 mg PO DAILY PRN PRN PRN Reason: Constipation Citalopram Hydrobromide (Celexa) 40 mg PO DAILY [facility] Last Admin: 10/15/18 10:31 Dose: 40 mg Enoxaparin Sodium (Lovenox) 40 mg SC DAILY@1000 [facility] Last Admin: 10/15/18 10:32 Dose: 40 mg Levothyroxine Sodium (Synthroid) 175 mcg PO DAILY@0600 [facility] Last Admin: 10/15/18 06:19 Dose: 175 mcg Lidocaine (Lidoderm Patch) 1 patch TOPICAL DAILY [facility]; Protocol Last Admin: 10/15/18 10:31 Dose: 1 patch Lorazepam (Ativan) 1 mg PO BID PRN PRN PRN Reason: ANXIETY Last Admin: 10/14/18 11:51 Dose: 1 mg Magnesium Hydroxide (Milk Of Magnesia) 30 ml PO DAILY PRN PRN PRN Reason: Constipation [facility] Last Admin: 10/15/18 10:32 Dose: 500 mg Oxycodone HCl (Oxyir) 5 mg PO Q6H PRN PRN PRN Reason: SEVERE PAIN (6-10/10) Last Admin: 10/15/18 04:05 Dose: 5 mg Pantoprazole Sodium (Protonix) 20 mg PO DAILY@0800 [facility] Last Admin: 10/15/18 10:31 Dose: 20 mg Sodium Chloride () 5 - 15 ml IV UD PRN PRN Reason: SALINE FLUSH Medical Necessity - Tobacco Use Smoking Status: Current every day smoker Tobacco Use: Cigarettes Assessment/Plan All Active Problems Acute pain of left shoulder due to trauma (Acute) Debility (Acute) Right shoulder pain (Acute) Intractable low back pain (Acute) 1. Suspected left rotator cuff tear or sprain * No signs or symptoms of septic arthritis. I feel the patient likely had some rotator cuff tear when he fell. Recommendation is for physical therapy. If that does not seem to improve then patient will need follow-up with o rthopedics and likely get some imaging and further evaluation. Explained to patient that surgery is a last resort. 2. Cerebral palsy: * PT OT 3. Failure to thrive * await therapy evaluation * may need SNF 4. DVT proph: LMWH 5. Disposition: * Therapy has recommended SNF * Status has now changed to admission from observation. Despite, there is no medical necessity to keep his stay the 3 midnights mandated by Medicare. He asked me to review why this occurred in the past. I reviewed the admission from November 2017 (where I was involved) and documented at that time there was no medical necessity for his hospitalization. Patient has been encouraged to review facilities that would accept his Medicaid (TCU does not). He says he will look at. Reassurance provided to the patient that other facilities can accommodate him with CP. Hopefully, the patient in [place] will review the facilities and make a decision. I am concerned he may stall, so that he makes his 3 midnights. Patient has asked for a 2nd opinion. I told him I am going off service and another hospitalist will be assuming his care on the . Greater than 35 minutes of which greater than 50% of the time was counseling the patient on the lack of medical justification of his hospitalization and that although his problems are gradually worse, they are not new. Code Visit Inpatient E&M: 97603 Subs Hosp L3
--- NOTE | 2018-10-15 14:30 | CASEMGMT ---
Patient has expressed interest in going to 4th floor rehab unit as he would get more therapy there and that would be helpful. He also said he does not have Medicaid. KIZZY called [employer] and patient has [employer]. This just pays for Part B premiums. Therefore, he would not be able to go to a half-way on Medicaid. KIZZY called Catie in the Inpatient Rehab Unit. She will look at patient and talk with Dr Pabon to see if they can accept. Await return call. Ira AYERS HOSPITAL MEDICINE DIRECTOR
[2018-10-15 15:10] VITALS: BP 129/77; PULSE 56; RESP 16; TEMP 36.6; O2SAT 95
--- NOTE | 2018-10-15 15:36 | CASEMGMT ---
KIZZY spoke with Catie in rehab and she said Dr Pabon has not got back with her yet. She will notify KIZZY tomorrow. KIZZY spoke with patient and let him know that it is possible he can go to rehab, however we have to wait on the Rehab Unit to accept him. KIZZY told him this may not be until tomorrow. KIZZY told him he will have to do 3 hours of therapy daily and he will have to start at 8am. He verbalized understanding and was in agreement. Await acceptance or denial from Dr Pabon. Ira AYERS PUBLIC HEALTH DENTIST
[2018-10-15 21:07] VITALS: BP 118/70; PULSE 58; RESP 13; TEMP 37; O2SAT 98
[2018-10-15 23:29] VITALS: BP 117/70; PULSE 58; RESP 14; TEMP 36.8; O2SAT 97
[2018-10-16 05:59] VITALS: BP 102/76; PULSE 58; RESP 10; TEMP 36.4; O2SAT 96
[2018-10-16] MEDS: Acetaminophen 500 MG Tablet 1000 MG PO ×2 (06:17→14:06)
[2018-10-16] MEDS: Levothyroxine 175 MCG Tablet PO (06:17)
[2018-10-16 09:19] VITALS: O2SAT 95
[2018-10-16] MEDS: Lidocaine 5% Patch 1 PATCH TOPICAL (09:19)
[2018-10-16] MEDS: Enoxaparin 40 MG/0.4 ML Syringe SC (09:19)
[2018-10-16] MEDS: Pantoprazole Sodium 20 MG Tablet PO (09:19)
[2018-10-16] MEDS: Citalopram 40 MG TABLET PO (09:19)
[2018-10-16] MEDS: Naproxen 500 MG Tablet PO (09:19)
[2018-10-16] MEDS: Bisacodyl 5 MG Tablet PO (09:37)
[2018-10-16] MEDS: LORazepam 1 MG Tablet PO (09:39)
--- NOTE | 2018-10-16 09:40 | CASEMGMT ---
KIZZY received call from Catie in rehab and they can accept patient. KIZZY notified patient. KIZZY then spoke with medical charge entry specialist who said Dr Pabon said patient cannot go to the rehab unit until Ortho sees patient fore his shoulder pain. This will be passed on to physician. Ira AYERS MSW
--- NOTE | 2018-10-16 13:50 | MRI_ITS ---
STUDY: MRI LEFT SHOULDER REASON FOR EXAM: Left shoulder weakness, limited range of motion, pain status post fall. TECHNIQUE: Standardized fat and water weighted pulse sequences were obtained in all 3 orthogonal planes. COMPARISON: Radiographs 10/13/2018. FINDINGS: There is supraspinatus tendinosis (T2 coronal images 7-11) without discrete tendon tear. Normal infraspinatus tendon. Normal subscapularis tendon. Normal teres minor tendon. Normal supraspinatus muscle. Normal infraspinatus muscle. Normal subscapularis muscle. Normal teres minor muscle. Normal glenohumeral articulation. There is a nondisplaced fracture of the anterior aspect of the greater tuberosity (T2 sagittal images 12-15) with associated bone edema. Normal biceps labral complex. Normal intracapsular long biceps tendon. Normal labrum. Normal capsulo- ligamentous complex. There is acromioclavicular arthrosis without undersurface osteophytes (T2 sagittal image 4). There is a Type II morphology (curved), with a neutral orientation. There is a small volume of subacromial-subdeltoid bursal fluid T2 coronal images 9-14). Normal visualized coracohumeral and coracoacromial ligaments. Normal deltoid muscle. Normal trapezius muscle. MRI/Upper Ext Joint Only(Routine) IMPRESSION: Supraspinatus tendinosis without demonstrated rotator cuff tear. Nondisplaced fracture of the greater tuberosity. Acromioclavicular arthrosis. Mild subacromial-subdeltoid bursitis. Electronically Signed: Robbie Pacheco MD at 7:19 EDT Tel , Service support ,
[2018-10-16 13:52] VITALS: BP 138/79; PULSE 62; RESP 16; TEMP 36.3; O2SAT 97
--- NOTE | 2018-10-16 13:53 | PCM.CONS.GEN ---
Reason for Consult Date of Consultation: 10/16/18 Reason for Consultation: left shoulder pain and weakness History of Present Illness: The patient is a 53 year old M with history of cerebral palsy lower extremity weakness.He states he had a power outage 1 month ago was walking in the dark and fell reaching for the wall with his left arm he says he felt a snap and had immediate pain and has had weakness since. He has not had any dedicated treatment to this shoulder except for x-rays taken at the urgent care at [facility] for which he states were read as normal. he admits to chronic back pain is currently admitted for debility and will be transferring to the rehab unit shortly. he denies any prior shoulder injury or surgery. He denies any numbness or tingling into the extremity. Past Medical History Past Medical History (Chronic Problems): Chronic Problems GERD (gastroesophageal reflux disease) (Chronic) Obstructive sleep apnea (Chronic) Multilevel spinal canal stenosis (Chronic) Hypothyroidism (Chronic) Anxiety (Chronic) Depression (Chronic) Allergies No Known Allergies Allergy (Verified 10/13/18 21:20) Home Medications: Ambulatory Orders Medication Instructions Recorded Citalopram [Celexa] 40 mg PO DAILY 05/21/16 Levothyroxine [Synthroid] 175 mcg PO DAILY 05/21/16 Lorazepam [Ativan] 1 mg PO BID PRN #4 tab 11/25/17 Omeprazole [Prilosec] 20 mg PO DAILY@0800 03/10/18 Surgical History: tonsillectomy, - - Bilateral hand surgery for trigger finger. Lives: With Family Smoking Status: Current every day smoker Tobacco Use: Cigarettes Alcohol: Occasional - *Family History Maternal History Items: Diabetes, - Paternal History Items: - - Patient was adopted and he does not know his paternal medical history. Patient Problems: Active and Suspected Problems Acute pain of left shoulder due to trauma (Acute) Debility (Acute) Right shoulder pain (Acute) - Physical Exam General: Alert, Oriented x3, No apparent distress Extremities: - - Left shoulder with lidocaine patch there is no erythema or ecchymosis or joint effusion. Nontender over the AC joint he has forward flexion to 160 degrees there is weakness with resistance 4 out of 5 abduction also to 160 with pain 4 out of 5 strength with positive drop arm. Vital Signs Temp Pulse Resp BP Pulse Ox 97.6 F L 58 L 10 L 102/76 95 10/16/18 05:59 10/16/18 05:59 10/16/18 05:59 10/16/18 05:59 10/16/18 09:19 Oxygen Delivery Method Room Air Weight: 228 lb 13.437 oz Body Mass Index (BMI) 38.0 Intake and Output for Last 24 Hours 10/14/18 10/15/18 10/16/18 23:59 23:59 23:59 Intake Total 1869 / 0 1200 / 1200 600 / 600 Balance 1869 1200 / 1200 600 / 600 Assessment/Plan All Active Problems Acute pain of left shoulder due to trauma (Acute) Debility (Acute) Right shoulder pain (Acute) Intractable low back pain (Acute) Patient has clinical history which is suggestive for rotator cuff tear recommend MRI to left shoulder. Spoke with admitting physician who is requesting this be ordered while inpatient. I will order this and recommendations to follow. If full-thickness rotator cuff tear may require surgery however it does not have to be done on an acute basis.
[2018-10-16] MEDS: oxyCODONE 5 MG Tablet PO (14:06)
--- NOTE | 2018-10-16 14:53 | CASEMGMT ---
Orthopedic Physician saw patient. He recommended an MRI. He said they will not do surgery as rotator cuff surgery is not done as an inpatient. He said patient can follow up as an outpatient. KIZZY called Catie in rehab and let her know this information. She said patient can go to rehab after his MRI. The MRI does not need to be resulted as it will not change his plan of care while in rehab. Ira AYERS BRAN MIXER
--- NOTE | 2018-10-16 15:57 | DCINST_ITS ---
- Discharge Diagnoses Current Active Problems: Current Active and Chronic Problems Acute pain of left shoulder due to trauma (Acute) Debility (Acute) Right shoulder pain (Acute) You will use the following diet at home:: Regular Your food should be the consistency of: Regular Your liquids should be the consistency of: Regular/Thin Discharge Activity: - - activity per PT/OT Weight Bearing Status: Full weight bearing Lifting Restrictions: no more than 5 lbs L arm Instructions: ED Shoulder Pain [facility] Allergies/Adverse Reactions: Allergies No Known Allergies Allergy (Verified 10/13/18 21:20) Medications to take at Discharge Citalopram [Celexa] 40 mg PO DAILY 05/21/16 Levothyroxine [Synthroid] 175 mcg PO DAILY 05/21/16 Lorazepam [Ativan] 1 mg PO BID PRN #4 tab 11/25/17 Magnesium Hydroxide [Milk Of Magnesia] 30 ml PO DAILY PRN PRN udc 10/16/18 Naproxen [Naprosyn] 500 mg PO BIDCM tablet 10/16/18 Oxycodone [Oxyir] 5 mg PO Q6H PRN PRN #30 tablet 10/16/18 Pantoprazole Sodium [Protonix] 20 mg PO DAILY@0800 tablet 10/16/18 The following prescriptions were given: Oxycodone [Oxyir] 5 mg PO Q6H PRN PRN #30 tablet PRN Reason: Severe Pain (6-05/02) Primary Care Physician: Sai Cobian MD [Primary Care Provider] - 3-5 Days if not improving Please follow up with your Primary Care Physician in: following Dc from rehab Test Results: Test results from this visit will be discussed in further detail at your follow- up appointment, if applicable. Proposed Discharge Date: 10/16/18
--- NOTE | 2018-10-16 16:11 | DS.PCM_ITS ---
Discharge Date and Diagnosis - Problem List Patient Problems: Active and Suspected Problems Acute pain of left shoulder due to trauma (Acute) Debility (Acute) Right shoulder pain (Acute) Date of Admission: 10/14/18 Date of Discharge: 10/16/18 - Primary Discharge Diagnosis Active and Suspected Problems Acute pain of left shoulder due to trauma (Acute) Debility (Acute) Right shoulder pain (Acute) - Secondary Discharge Diagnosis Chronic Problems GERD (gastroesophageal reflux disease) (Chronic) Obstructive sleep apnea (Chronic) Multilevel spinal canal stenosis (Chronic) Intractable low back pain (Chronic) Hypothyroidism (Chronic) Anxiety (Chronic) Depression (Chronic) Hospital Course and Treatment Imaging Results: 10/16/18 13:50 MRI Shoulder [Upper Ext Joint Only(Routine)] [MRI] Routine Clinical Impression(s) from Imaging Studies Shoulder X-Ray 10/13/18 21:40 IMPRESSION: No apparent fracture. Suboptimal evaluation of the upper aspect of the humeral head and of the greater tuberosity. at 2201 Reported and signed by: Yaya Ivey MD Electronically Signed: Yaya Ivey, at 21:59 EDT Tel , Service support , Dr. Sunday Barillas -orthopedics Operations: None Procedures: None Summary of Care Provided: The patient is a 53 year old M with a past medical history of cerebral palsy, GERD, obstructive sleep apnea, hypothyroidism, anxiety/depression, obesity, tobacco abuse and reported spinal canal stenosis who presented to the emergency room at [facility] on 10/14/2018 complaining of severe left shoulder pain that had been present for 1 month. The pain started after a fall and he has been unable to use his left arm. He is right-hand dominant. He also complained of right shoulder pain which started after he coughed and strained a muscle. He complained of bilateral lower extremity weakness and stated that he generally uses his arms to compensate however he has been unable to use left upper extremity due to severe pain. A 2 view x-ray of the left shoulder showed no apparent fracture. The patient stated he is not able to care for himself and his son will be moving out and unable to help him. He wanted to go to TCU because he has been there in the past but, he does not meet criteria for a 3 night stay in the hospital. He was evaluated by Dr. Pabon for admission to the rehab floor and Dr. Pabon requested an ortho consult prior to transfer to rehab and a MRI of the left shoulder if Dr. Barillas felt it was necessary. He was seen in consultation by Dr. Gray who sent him for an MRI of his left shoulder. The MRI has been completed but not reported. When he returned from MRI, a noncontrast study, he had a papular erythematous rash on his forearms which was mildly pruritic. He was prescribed Claritin and will take 10 mg a day and I will reevaluate over the next 24-48 hours. He was transferred to the rehab floor on 10/16/2018 for PT/OT/rehab prior to returning home. The pt requested to see Dr. Bagley while in the hospital. He has seen Dr. Bagley in the past while in the transitional care unit and had a lumbar epidural that relieved his pain for approximately 3 weeks. He never followed up following discharge from the transitional care unit and told me that he scheduled appointments however his ride never showed up on multiple occasions and he has not seen Dr. Bagley since. I told him this would likely not be possible in rehab and he may have to follow up with Dr. Bagley following DC as an OP. He will follow up with Dr. Barillas for results of the left shoulder MRI. Alert and oriented x3, no apparent distress, sitting in a chair in his room Lungs-clear to auscultation Heart-regular rate and rhythm, normal S1, normal S2, no murmur, no gallop, no rub Abdomen-obese, soft, nontender, nondistended, bowel sounds present No peripheral edema papular rash on the extensor surface of the forearms BL.....mildly pruritic This note was generated with Nuji dictation software. It may contain incorrect words, spelling, and punctuation that were not noted in checking the note before signing. Patient Problems: Active and Suspected Problems Acute pain of left shoulder due to trauma (Acute) Debility (Acute) Right shoulder pain (Acute) - Physical Exam Vital Signs Temp Pulse Resp BP Pulse Ox 97.4 F L 62 16 138/79 H 97 10/16/18 13:52 10/16/18 13:52 10/16/18 13:52 10/16/18 13:52 10/16/18 13:52 Oxygen Delivery Method Room Air Weight: 228 lb 13.437 oz Body Mass Index (BMI) 38.0 Intake and Output for Last 24 Hours 10/14/18 10/15/18 10/16/18 23:59 23:59 23:59 Intake Total 18690 1200 / 1200 600 / 600 Balance 1870 1200 / 1200 600 / 600 Discharge Activity: - - activity per PT/OT Weight Bearing Status: Full weight bearing Home Medications: Medications to take at Discharge Citalopram [Celexa] 40 mg PO DAILY 05/21/16 Levothyroxine [Synthroid] 175 mcg PO DAILY 05/21/16 Lorazepam [Ativan] 1 mg PO BID PRN #4 tab 11/25/17 Loratadine [Claritin] 10 mg PO DAILY #1 tablet 10/16/18 Magnesium Hydroxide [Milk Of Magnesia] 30 ml PO DAILY PRN PRN udc 10/16/18 Naproxen [Naprosyn] 500 mg PO BIDCM tablet 10/16/18 Oxycodone [Oxyir] 5 mg PO Q6H PRN PRN #30 tablet 10/16/18 Pantoprazole Sodium [Protonix] 20 mg PO DAILY@0800 tablet 10/16/18 Following Prescrptions Were Given to Patient: Oxycodone [Oxyir] 5 mg PO Q6H PRN PRN #30 tablet PRN Reason: Severe Pain (6-05/02) Loratadine [Claritin] 10 mg PO DAILY #1 tablet Primary Care Physician: Sai Cobian MD [Primary Care Provider] - 3-5 Days if not improving Please follow up with your Primary Care Physician in: following Dc from rehab Patient Instructions: ED Shoulder Pain [facility] Disposition: Inpt Rehab Unit/Facility Minutes spent on discharge:: 35 Patient Condition:: Stable Medical Necessity - Tobacco Use Smoking Status: Current every day smoker Tobacco Use: Cigarettes Meaningful Use Info Meaningful Use Diagnoses (Choose all that apply): None applicable Code Visit Inpatient E&M: 07745 Disch Hosp
== END 2018-10-16 16:31 | DRG 914 ==
LOC: ED 22:23 → PCU 10-14 01:08
PROVIDERS: Admitting Provider Hospitalist; Emergency Provider Emergency Medicine; Family Provider Family Medicine; PCP Family Medicine; Referring Provider Hospitalist; Visit Provider Internal Medicine
DX: S49.92XA Unspecified injury of left shoulder and upper arm, initial encounter (principal); W19.XXXA Unspecified fall, initial encounter; Y92.009 Unspecified place in unspecified non-institutional (private) residence as the place of occurrence of the external cause; G80.9 Cerebral palsy, unspecified; G89.29 Other chronic pain; M54.5 Low back pain; R53.81 Other malaise; M25.511 Pain in right shoulder; E03.9 Hypothyroidism, unspecified; G47.33 Obstructive sleep apnea (adult) (pediatric); F41.9 Anxiety disorder, unspecified; K21.9 Gastro-esophageal reflux disease without esophagitis; M48.00 Spinal stenosis, site unspecified; F32.9 Major depressive disorder, single episode, unspecified; E66.9 Obesity, unspecified; Z68.38 Body mass index [BMI] 38.0-38.9, adult; Z72.0 Tobacco use; R21 Rash and other nonspecific skin eruption
CPT/HCPCS: 73030; 73221; 94660; 97110; 97116; 97162; 97165; 97530; 99406

== ENCOUNTER 2018-10-16 17:31 | Inpatient (IN) | payer MEDICARE, SELFPAY ==
[2018-10-14 01:21] VITALS: BMI 38.0
[2018-10-16 17:35] VITALS: BP 122/74; PULSE 64; RESP 17; TEMP 36.5; O2SAT 97
[2018-10-16 17:37] VITALS: BMI 38.0
[2018-10-16 19:28] VITALS: BP 115/62; PULSE 70; RESP 16; TEMP 36.1; O2SAT 95
[2018-10-16 19:47] VITALS: BMI 38.1
[2018-10-17] MEDS: Levothyroxine 175 MCG Tablet PO (05:41)
[2018-10-17] MEDS: Enoxaparin 40 MG/0.4 ML Syringe SC (05:41)
[2018-10-17] MEDS: oxyCODONE 5 MG Tablet PO ×3 (05:47→20:11)
[2018-10-17 06:08] LABS: Hematocrit 44.4 % (40-54); Hemoglobin 14.5 g/dl (13.0-16.5); Mean Corp Hgb Conc 32.7 g/gl (32-36); Mean Corpuscular Hgb 31.4 pg (27.0-32.0); Mean Corpuscular Volume 96.1 fL (80-94); Mean Platelet Vol. 11.3 fl (6.2-12.0); Platelet Count 215 K/mm3 (150-450); RBC Distribution Width SD 44.9 fl (35.1-43.9); Red Blood Count 4.62 M/mm3 (4.6-6.2); White Blood Count 7.9 K/mm3 (4.4-11.0)
[2018-10-17 06:11] LABS: Scan Indicated on CBC? Y/N NO
--- NOTE | 2018-10-17 06:20 | NURSING ---
Pt states not having a BM since 10/13. Has attempted prune juice on 10/16. Offered MOM first round, pt refused and stated he 'would like to try another cup of prune juice for breakfast'. Informed him that we would need to f/u with MOM if prune juice is ineffective. Pt consented.
[2018-10-17 06:22] LABS: AST(SGOT) 38 U/L (15-37); Alanine Aminotransfer ALT/SGPT 77 U/L (16-61); Albumin, Serum 3.5 g/dL (3.2-5.0); Alkaline Phosphatase 96 U/L (45-117); Anion Gap 8 (5-15); BUN 16 mg/dL (7-18); BUN/Creat Ratio 15.2 RATIO (10-20); Calcium,Total 8.5 mg/dL (8.5-10.1); Chloride 106 mmol/L (98-107); Creatinine, Serum 1.05 mg/dL (0.70-1.30); EST Glomerular Filtration Rate 79 mL/min (>60); Est Glom Filt Rate - Afr Amer 96 mL/min (>60); Globulin 3.5 g/dL (2.2-4.2); Glucose 92 mg/dL (74-106); Potassium 4.2 mmol/L (3.5-5.1); Sodium Level 137 mmol/L (136-145)
[2018-10-17 07:35] VITALS: O2SAT 97
[2018-10-17] MEDS: Pantoprazole Sodium 20 MG Tablet PO (08:00)
[2018-10-17] MEDS: Loratadine 10 MG Tablet PO (08:00)
[2018-10-17] MEDS: Citalopram 20 MG Tablet PO (08:00)
[2018-10-17 08:18] VITALS: BP 125/72; PULSE 56; RESP 16; TEMP 36.5; O2SAT 94
[2018-10-17] MEDS: LORazepam 1 MG Tablet PO (10:44)
--- NOTE | 2018-10-17 11:32 | PCM.PN.ORT ---
Patient Problems: Active and Suspected Problems Greater tuberosity of humerus fracture (Acute) Subjective: The same as yesterday pain in left shoulder - Physical Exam General: Alert, Oriented x3, No apparent distress Extremities: - - sling, NVI Vital Signs Temp Pulse Resp BP Pulse Ox 97.7 F L 56 L 16 125/72 H 94 10/17/18 08:18 10/17/18 08:18 10/17/18 08:18 10/17/18 08:18 10/17/18 08:18 Oxygen Delivery Method Room Air Weight: 228 lb 13.437 oz Body Mass Index (BMI) 38.0 Intake and Output for Last 24 Hours 10/15/18 10/16/18 10/17/18 23:59 23:59 23:59 Intake Total 240 / 240 Balance 240 / 240 Laboratory Tests Past 24 Hrs 10/17/18 10/17/18 05:45 05:45 WBC 7.9 RBC 4.62 Hgb 14.5 Hct 44.4 MCV 96.1 H MCH 31.4 MCHC 32.7 RDW 13.0 RDW Differential 44.9 H Plt Count 215 MPV 11.3 Sodium 137 Potassium 4.2 Chloride 106 Carbon Dioxide 23.0 Anion Gap 8 BUN 16 Creatinine 1.05 Estim Creat Clear Calc 72.40 Est GFR (MDRD) Af Amer 96 Est GFR (MDRD) Non-Af 79 BUN/Creatinine Ratio 15.2 Glucose 92 Calcium 8.5 Total Bilirubin 0.50 AST 38 H ALT 77 H Alkaline Phosphatase 96 Total Protein 7.0 Albumin 3.5 Globulin 3.5 Albumin/Globulin Ratio 1.0 Medical Necessity - Tobacco Use Smoking Status: Current every day smoker Assessment/Plan All Active Problems Greater tuberosity of humerus fracture (Acute) Acute pain of left shoulder due to trauma (Acute) Debility (Acute) Right shoulder pain (Acute) Nondisplaced greater tuberosity fracture left shoulder, he is already about a month from the injury and it has not moved. However would recommend continued sling for the next 2 weeks with no active shoulder motion. Passive range of motion by physical therapy is okay. Encourage elbow range of motion and pendulum exercises to shoulder multiple times a day. Follow-up in office 2 weeks for repeat x-rays and likely progression to active range of motion.
--- NOTE | 2018-10-17 12:21 | CASEMGMT ---
Student SW psychosocial assessment documentation reviewed. NYDIA Ordoñez
--- NOTE | 2018-10-17 13:08 | HP.PCM_ITS ---
Problem List (1) Cerebral palsy Status: Chronic (2) Greater tuberosity of humerus fracture Status: Acute (3) GERD (gastroesophageal reflux disease) Status: Chronic (4) Obstructive sleep apnea Status: Chronic (5) Acute pain of left shoulder due to trauma Status: Acute (6) Debility Status: Acute (7) Right shoulder pain Status: Acute (8) Multilevel spinal canal stenosis Status: Chronic (9) Intractable low back pain Status: Chronic (10) Hypothyroidism Status: Chronic (11) Anxiety Status: Chronic (12) Depression Status: Chronic History of Present Illness Date of Admission: 10/16/18 Chief Complaint: Debility s/p Left shoulder fracture The patient is a 53 year old M with PMH of hypothyroidism, anxiety/depression, spinal stenosis, JODEE on CPAP, cerebral palsy, GERD GERD, admitted to [facility] on 10/16/2018 with debility status post left shoulder pain, found to have nondisplaced fracture of the greater tuberosity, for greater than 3 hours therapy daily with a goal of returning back home at or near his prior level of functional independence. Per patient he had a fall about a month ago and since then he has been having progressively worsening excruciating left shoulder pain. During the inpatient stay patient had an MRI of the shoulder done which was reported to show supraspinatus tendinosis without demonstrated rotator cuff tear, nondisplaced fracture of the greater tuberosity, acromioclavicular arthrosis and mild subacromial/subdeltoid bursitis. Patient was evaluated by Dr. Barillas who recommended sling for 2 weeks with no active shoulder motion, passive range of motion by physical therapy, encourage elbow range of motion and pendulum exercises to the shoulder multiple times a day, and follow-up in 2 weeks for further evaluation. At present patient continues to have left shoulder pain, denies any focal motor weakness, sensory loss, headache, dizziness, visual disturbances or speech disturbances. Per patient he lives with his son who will be moving out soon, as an apartment building, has 5 steps to get into the house, does drive, has been using walker since around last November 2017. Per patient he has chronic low back pain and had seen Dr. Seals in the past for back injections. [] Past Medical History Past Medical History (Chronic Problems): Chronic Problems Cerebral palsy (Chronic) GERD (gastroesophageal reflux disease) (Chronic) Obstructive sleep apnea (Chronic) Multilevel spinal canal stenosis (Chronic) Intractable low back pain (Chronic) Hypothyroidism (Chronic) Anxiety (Chronic) Depression (Chronic) Allergies No Known Allergies Allergy (Verified 10/13/18 21:20) Home Medications: Ambulatory Orders Medication Instructions Recorded Levothyroxine [Synthroid] 175 mcg PO DAILY 05/21/16 Lorazepam [Ativan] 1 mg PO BID PRN #4 tab 11/25/17 Loratadine [Claritin] 10 mg PO DAILY 10/16/18 Magnesium Hydroxide [Milk Of 30 ml PO DAILY PRN PRN udc 10/16/18 Magnesia] Oxycodone [Oxyir] 5 mg PO Q6H PRN PRN #30 tablet 10/16/18 Pantoprazole Sodium [Protonix] 20 mg PO DAILY@0800 10/16/18 Surgical History: tonsillectomy, - - Bilateral hand surgery for trigger finger. Lives: With Family Smoking Status: Current every day smoker Alcohol: Occasional, Sober Drugs: None - *Family History Maternal History Items: Diabetes, - Paternal History Items: - - Patient was adopted and he does not know his paternal medical history. Review of Systems Constitutional: Reports: - - Plate ROS negative except as documented in HPI VTE Information - Inpt Only VTE Present on Admission: No VTE Mechan Device Prophylaxis: SCD's, Knee High KOKO Hose VTE Pharm Prophylaxis ordered?: Yes Patient Problems: Active and Suspected Problems Greater tuberosity of humerus fracture (Acute) - Physical Exam General: Alert HEENT: Normocephalic Neck: Supple Lungs: Normal air movement Cardiovascular: Normal S1, Normal S2 Abdomen: Bowel Sounds Present Extremities: No cyanosis Neurological: Cranial nerves II-XII grossly intact, Deep Tendon Reflexes 2+/4 and Symmetrical, Neuro grossly intact, Motor Exam 5/5 strength throughout, Sensory exam intact to light touch and pain, Coordination normal, - - complaints of spasticity in the legs secondary to cerebral palsy Psych/Mental Status: Normal Affect Vital Signs Temp Pulse Resp BP Pulse Ox 97.7 F L 56 L 16 125/72 H 94 10/17/18 08:18 10/17/18 08:18 10/17/18 08:18 10/17/18 08:18 10/17/18 08:18 Oxygen Delivery Method Room Air Weight: 103.8 kg Body Mass Index (BMI) 38.0 Intake and Output for Last 24 Hours 10/15/18 10/16/18 10/17/18 23:59 23:59 23:59 Intake Total 240 / 240 Balance 240 / 240 Laboratory Tests Past 24 Hrs 10/17/18 10/17/18 05:45 05:45 WBC 7.9 RBC 4.62 Hgb 14.5 Hct 44.4 MCV 96.1 H MCH 31.4 MCHC 32.7 RDW 13.0 RDW Differential 44.9 H Plt Count 215 MPV 11.3 Sodium 137 Potassium 4.2 Chloride 106 Carbon Dioxide 23.0 Anion Gap 8 BUN 16 Creatinine 1.05 Estim Creat Clear Calc 72.40 Est GFR (MDRD) Af Amer 96 Est GFR (MDRD) Non-Af 79 BUN/Creatinine Ratio 15.2 Glucose 92 Calcium 8.5 Total Bilirubin 0.50 AST 38 H ALT 77 H Alkaline Phosphatase 96 Total Protein 7.0 Albumin 3.5 Globulin 3.5 Albumin/Globulin Ratio 1.0 Assessment/Plan All Active Problems Greater tuberosity of humerus fracture (Acute) Acute pain of left shoulder due to trauma (Acute) Debility (Acute) Right shoulder pain (Acute) The patient is a 53 year old M with PMH of hypothyroidism, anxiety/depression, spinal stenosis, JODEE on CPAP, cerebral palsy, GERD GERD, admitted to [facility] on 10/16/2018 with debility status post left shoulder pain, found to have nondisplaced fracture of the greater tuberosity, for greater than 3 hours therapy daily with a goal of returning back home at or near his prior level of functional independence. Per patient he had a fall about a month ago and since then he has been having progressively worsening excruciating left shoulder pain. During the inpatient stay patient had an MRI of the shoulder done which was reported to show supraspinatus tendinosis without demonstrated rotator cuff tear, nondisplaced fracture of the greater tuberosity, acromioclavicular arthrosis and mild subacromial/subdeltoid bursitis. Patient was evaluated by Dr. Barillas who recommended sling for 2 weeks with no active shoulder motion, passive range of motion by physical therapy, encourage elbow range of motion and pendulum exercises to the shoulder multiple times a day, and follow-up in 2 weeks for further evaluation. At present patient continues to have left shoulder pain, denies any focal motor weakness, sensory loss, headache, dizziness, visual disturbances or speech disturbances. Per patient he lives with his son who will be moving out soon, as an apartment building, has 5 steps to get into the house, does drive, has been using walker since around last November 2017. Per patient he has chronic low back pain and had seen Dr. Seals in the past for back injections. [] Plan ?PT for gait stability ?OT for ADLs ?Analgesics as needed ?Bowel protocol ?Hypothyroidism?on levothyroxine ?Anxiety/depression?on citalopram ?Acute left shoulder pain secondary to nondisplaced fracture of the greater tuberosity?further management recommendation per orthopedics Dr. Barillas, per [facility] recommendation sling for 2 weeks with no active shoulder motion and follow-up in 2 weeks for further evaluation. ?History of cerebral palsy?patient does complain of spasticity in both lower e xtremities. Trial of baclofen 5 mg p.o. 3 times daily. ?Fall precautions ?GI/DVT prophylaxis?pantoprazole/enoxaparin ?Hospitalist consult to Dr. Brown ?Further medical management per hospitalist recommendation ?Follow-up with PCP and orthopedics on discharge. Code Visit Inpatient E&M: 10650 Init Hosp L3
--- NOTE | 2018-10-17 13:13 | REHABEVAL_ITS ---
Admission Information Status Changes from Prescreening?: No changes Identified Actual Problem List:: Pain, ALteration in Cmfrt, Mobility Impaired, Self Care Deficit Potential Problem List:: DVT, Bleeding, Infection, UTI, Aspiration, Falls, Skin Integrity, Depression Risk of Complications DVT: LMWH, KOKO Hose, Sequential Compression Device Bleeding: Monitor Lab Values, Nursing to Teach Precautions for anti-coagulation therapy., Wound, if applicable, to be assessed every shift., Stroke patients assessed for lethargy or change in status. Infection: Clinical Staff to Monitor for S/S of infection:, S/S of infection include fever, redness, warmth, etc. Urinary Tract Infection: Monitor for frequency, burning, discomfort, or incontinence., Nursing will obtain urine sample for urinalysis and C&S when ordered. Aspiration: Clinical staff will monitor for coughing, drooling, congestion., Speech will evaluate swallowing and dsyphasia., Nursing will monitor patient swallowing during meals. Falls: Patient will be evaluated for Fall Precautions, Patient will be placed on Fall Precautions as indicated per protocol. Skin Breakdown: Nursing will assess skin daily using assessment tool., Nursing will place on Skin Breakdown Precautions as indicated. Pain: Clinical staff will assess patient's pain level per protocol., Medications will be given, if needed, and the pain level reassessed., Other methods: Massage, distraction, decrease stimulus, etc. used PRN. Plan of Care Patient requires physician specializing in physical medicine and rehab oversight to provide close medical supervision of rehab issues including: Pain Management, Sleep Problems, Bowel and Bladder, Medical and co-morbidity Management, DVT prophylaxis, Rehabilitation Leadership, Coordination of treatment team Patient needs Physical Therapy: For a minimum of 1 hour, At least 5 out of 7 days Patient needs Physical Therapy to improve:: Mobility, Mobility, Mobility, Strengthening, Transfers, Stretching, ROM, Endurance, Stairs, Gait, Balance Patient needs Occupational Therapy: For a minimum of 1 hour, At least 5 out of 7 days Patient needs Occupational Therapy to improve ADL's incl.: Eating, Grooming, Bathing, Dressing, Toileting, Toilet transfers, Community Reintegration, Higher functioning activities, Household tasks, Adaptive Equipment, Splinting, Other activities as determined Patient requires speech therapy for: Swallowing, Cognition, Language Skills, Compensatory Strategies Patient requires 24/ Rehabilitation Nursing for: Pain Issues, Identifying and preventing risk factors, Monitoring and reporting current medical conditions, Assisting with ambulation, transfer, and all ADL's, Teaching patients about disease process and medications, Family teaching, Providing safe environment, Bowel and Bladder Issues, Skin integrity, Medication Management Patient needs Equipment Operator/ Case Management for: Discharge Planning, Arranging Home Equipment or Services, Family Interventions Patient needs Dietary and Nutrition Services for: Adequate Nutrition, Nutrit ional Supplements, Nutritional Education Goals Patient will remain: free from falls, or injury at time of discharge. Patient will perform bed mobility at: MOD I level of assist. Patient will complete transfers from bed to chair at: MOD I level of assist. Patient will ambulate: 100 feet, with MOD I assist, with LRD Patient will complete upper body dressing at: MOD I level of assist. Patient will complete lower body dressing at: MOD I level of assist. Patient will complete toileting at: MOD I level of assist. Patient will perform bathing at: MOD I level of assist. Patient will complete grooming at: MOD I level of assist. Patient will complete home management skills at: MOD I level of assist. Patient will achieve: 12 stairs, at MOD I assist Patient will have pain level of: of 3 or less Patient's skin will: remain intact, free from infection. Patient will receive: adequate nutrition. Discharge Planning Pt Prognosis for Sig. Practical Improv. w/in Reasonable Time: Fair Estimated Length of stay (days): 16 Anticipated D/C Destination: Home with Outpt Therapy Was Preadmission Assessment Accurate?: Yes
[2018-10-17] MEDS: Magnesium Hydroxide 30 ML UDC PO (20:32)
[2018-10-17 21:57] VITALS: BP 112/52; PULSE 80; RESP 18; TEMP 36.8; O2SAT 94
[2018-10-18] MEDS: Enoxaparin 40 MG/0.4 ML Syringe SC (06:05)
[2018-10-18] MEDS: Levothyroxine 175 MCG Tablet PO (06:05)
[2018-10-18] MEDS: oxyCODONE 5 MG Tablet PO ×3 (06:16→20:31)
[2018-10-18 07:08] VITALS: O2SAT 91
[2018-10-18 09:59] VITALS: BP 116/71; PULSE 57; RESP 16; TEMP 36.7; O2SAT 92
[2018-10-18] MEDS: Pantoprazole Sodium 20 MG Tablet PO (10:10)
[2018-10-18] MEDS: Citalopram 20 MG Tablet PO (10:10)
[2018-10-18] MEDS: Loratadine 10 MG Tablet PO (10:10)
[2018-10-18] MEDS: Baclofen 10 MG Tablet 5 MG PO ×2 (13:52→20:31)
--- NOTE | 2018-10-18 15:34 | PCM.PROGNOTE ---
Subjective: Patient seen and examined. Resting comfortably in chair. Denies current complaints. Denies significant left shoulder pain. Denies GI/ complaints. - Physical Exam General: Alert, Oriented x3, Cooperative HEENT: Atraumatic, PERRLA, EOMI, Normocephalic Neck: Supple, No JVD, Negative Carotid Bruits Lungs: Clear to auscultation, Normal air movement Cardiovascular: Regular rate, Regular Rhythm, Normal S1, Normal S2, No murmurs Abdomen: Bowel Sounds Present, Soft, Non Tender, Non-Distended, Obese Extremities: No clubbing, No cyanosis, No edema, Capillary Refill Less than 3 Seconds Skin: No rashes, No breakdown Musculoskeletal: - - Left arm in sling Neurological: Cranial nerves II-XII grossly intact, Neuro grossly intact, - - Patient report of spasticity of the legs secondary to CP Psych/Mental Status: Normal Affect, Appropriate Vital Signs Temp Pulse Resp BP Pulse Ox 98.0 F 57 L 16 116/71 92 10/18/18 09:59 10/18/18 09:59 10/18/18 09:59 10/18/18 09:59 10/18/18 09:59 Oxygen Delivery Method Room Air Weight: 228 lb 13.437 oz Body Mass Index (BMI) 38.0 Intake and Output for Last 24 Hours 10/16/18 10/17/18 10/18/18 23:59 23:59 23:59 Intake Total 720 / 720 260 / 260 Balance 720 / 720 260 / 260 Medical Necessity - Tobacco Use Smoking Status: Current every day smoker Assessment/Plan All Active Problems Greater tuberosity of humerus fracture (Acute) Acute pain of left shoulder due to trauma (Acute) Debility (Acute) Right shoulder pain (Acute) 1. Debility/left shoulder pain secondary to a nondisplaced fracture of the greater tuberosity- Dr. Barillas following. Continue sling left arm with no shoulder motion, follow-up in 2 weeks. PT/OT. PRN pain regimen. 2. Cerebral palsy-initiated on baclofen 5 mg 3 times daily per neuro. 3. Anxiety/depression-continue citalopram regimen. 4. Hypothyroidism-continue Synthroid regimen. 5. JODEE-continue CPAP regimen. 6. GERD-continue PPI. 7. Tobacco dependence-encouraged smoking cessation. DVT prophylaxis-Lovenox subcu This patient was seen by PARKER Barnett under the supervision of Dr. Brown.
--- NOTE | 2018-10-18 15:58 | PCM.PN.NEU ---
Subjective: No issues overnight. Care discussed with the nursing staff. - Physical Exam General: Alert HEENT: Normocephalic Neck: Supple Lungs: Normal air movement Cardiovascular: Normal S1, Normal S2 Abdomen: Bowel Sounds Present Extremities: No cyanosis Neurological: Cranial nerves II-XII grossly intact, Deep Tendon Reflexes 2+/4 and Symmetrical, Neuro grossly intact, Motor Exam 5/5 strength throughout, Sensory exam intact to light touch and pain, Coordination normal, - - complaints of spasticity in the legs secondary to cerebral palsy Psych/Mental Status: Normal Affect Vital Signs Temp Pulse Resp BP Pulse Ox 98.0 F 57 L 16 116/71 92 10/18/18 09:59 10/18/18 09:59 10/18/18 09:59 10/18/18 09:59 10/18/18 09:59 Oxygen Delivery Method Room Air Weight: 103.8 kg Body Mass Index (BMI) 38.0 Intake and Output for Last 24 Hours 10/16/18 10/17/18 10/18/18 23:59 23:59 23:59 Intake Total 720 / 720 260 / 260 Balance 720 / 720 260 / 260 Medical Necessity - Tobacco Use Smoking Status: Current every day smoker Assessment/Plan All Active Problems Greater tuberosity of humerus fracture (Acute) Acute pain of left shoulder due to trauma (Acute) Debility (Acute) Right shoulder pain (Acute) The patient is a 53 year old M with PMH of hypothyroidism, anxiety/depression, spinal stenosis, JODEE on CPAP, cerebral palsy, GERD GERD, admitted to [facility] on 10/16/2018 with debility status post left shoulder pain, found to have nondisplaced fracture of the greater tuberosity, for greater than 3 hours therapy daily with a goal of returning back home at or near his prior level of functional independence. Per patient he had a fall about a month ago and since then he has been having progressively worsening excruciating left shoulder pain. During the inpatient stay patient had an MRI of the shoulder done which was reported to show supraspinatus tendinosis without demonstrated rotator cuff tear, nondisplaced fracture of the greater tuberosity, acromioclavicular arthrosis and mild subacromial/subdeltoid bursitis. Patient was evaluated by Dr. Barillas who recommended sling for 2 weeks with no active shoulder motion, passive range of motion by physical therapy, encourage elbow range of motion and pendulum exercises to the shoulder multiple times a day, and follow-up in 2 weeks for further evaluation. At present patient continues to have left shoulder pain, denies any focal motor weakness, sensory loss, headache, dizziness, visual disturbances or speech disturbances. Per patient he lives with his son who will be moving out soon, as an apartment building, has 5 steps to get into the house, does drive, has been using walker since around last November 2017. Per patient he has chronic low back pain and had seen Dr. Seals in the past for back injections. [] Plan ?PT for gait stability ?OT for ADLs ?Analgesics as needed ?Bowel protocol ?Hypothyroidism?on levothyroxine ?Anxiety/depression?on citalopram ?Acute left shoulder pain secondary to nondisplaced fracture of the greater tuberosity?further management recommendation per orthopedics Dr. Barillas, per orthopedic recommendation sling for 2 weeks with no active shoulder motion and follow-up in 2 weeks for further evaluation. ?History of cerebral palsy?patient does complain of spasticity in both lower extremities. Trial of baclofen 5 mg p.o. 3 times daily. ?JODEE?on CPAP ?Fall precautions ?GI/DVT prophylaxis?pantoprazole/enoxaparin ?Hospitalist consult to Dr. Brown ?Further medical management per hospitalist recommendation ?Follow-up with PCP and orthopedics on discharge.
--- NOTE | 2018-10-18 16:59 | CHAPLAIN ---
Type of Pastoral Visit _x__ Initial Visit ___ Follow-up Visit ___ On-call Visit ___ General Patient Visit ___ Spiritual Assessment ___ Family Conference ___ Bereavement ___ Rapid Response ___ Code Blue ___ Other (describe below) Pastoral Care Referral From _x__ Patient ___ Family ___ Nurse ___ Physician ___ Nib Finisher ___ Spool Winder ___ Other (describe below) Sacrament/Intervention _x__ Active listening ___ Anointing ___ Religion ___ Bereavement ___ Communion _x__ Amarilys exploration ___ _x__ Life review _x__ Prayer ___ Reconciliation ___ Sacrament of Sick _x__ Supportive presence ___ Wedding ___ Other (describe below) Pastoral Comments patient said that he needed someone to talk to and has some issues with his daughter; pt expresses discouragement with lack of support from family and especially his daughter; pt has spiritual questions as well
[2018-10-18 20:00] VITALS: BP 133/84; PULSE 73; RESP 18; TEMP 36.7; O2SAT 94
[2018-10-18] MEDS: Senna Tablet 2 TABLET PO (20:31)
[2018-10-19] MEDS: Enoxaparin 40 MG/0.4 ML Syringe SC (05:45)
[2018-10-19] MEDS: oxyCODONE 5 MG Tablet PO ×2 (05:45→18:26)
[2018-10-19] MEDS: Baclofen 10 MG Tablet 5 MG PO ×3 (05:46→21:23)
[2018-10-19] MEDS: Levothyroxine 175 MCG Tablet PO (05:46)
[2018-10-19 06:35] VITALS: O2SAT 94
[2018-10-19 07:00] VITALS: BP 119/67; PULSE 77; RESP 18; TEMP 36.8; O2SAT 96
[2018-10-19] MEDS: Citalopram 20 MG Tablet PO (08:31)
[2018-10-19] MEDS: Loratadine 10 MG Tablet PO (08:31)
[2018-10-19] MEDS: Pantoprazole Sodium 20 MG Tablet PO (08:31)
[2018-10-19] MEDS: Senna Tablet 2 TABLET PO ×2 (08:31→21:23)
--- NOTE | 2018-10-19 13:01 | PCM.PN.NEU ---
Subjective: No issues overnight. Care discussed with the nursing staff. LFTs abnormal, will defer to hospitalist for further evaluation. - Physical Exam General: Alert HEENT: Normocephalic Neck: Supple Lungs: Normal air movement Cardiovascular: Normal S1, Normal S2 Abdomen: Bowel Sounds Present Extremities: No cyanosis Neurological: - - Cranial nerves II-XII grossly intact, Deep Tendon Reflexes 2+/4 and Symmetrical, Neuro grossly intact, Motor Exam 5/5 strength throughout, Sensory exam intact to light touch and pain, Coordination normal, - - complaints of spasticity in the legs secondary to cerebral palsy Psych/Mental Status: Normal Affect Vital Signs Temp Pulse Resp BP Pulse Ox 98.2 F 77 18 119/67 96 10/19/18 07:00 10/19/18 07:00 10/19/18 07:00 10/19/18 07:00 10/19/18 07:00 Oxygen Delivery Method Room Air Weight: 103.8 kg Body Mass Index (BMI) 38.0 Intake and Output for Last 24 Hours 10/17/18 10/18/18 10/19/18 23:59 23:59 23:59 Intake Total 720 / 720 260 / 260 360 / 360 Balance 720 / 720 260 / 260 360 / 360 Medical Necessity - Tobacco Use Smoking Status: Current every day smoker Assessment/Plan All Active Problems Greater tuberosity of humerus fracture (Acute) Acute pain of left shoulder due to trauma (Acute) Debility (Acute) Right shoulder pain (Acute) The patient is a 53 year old M with PMH of hypothyroidism, anxiety/depression, spinal stenosis, JODEE on CPAP, cerebral palsy, GERD GERD, admitted to [facility] on 10/16/2018 with debility status post left shoulder pain, found to have nondisplaced fracture of the greater tuberosity, for greater than 3 hours therapy daily with a goal of returning back home at or near his prior level of functional independence. Per patient he had a fall about a month ago and since then he has been having progressively worsening excruciating left shoulder pain. During the inpatient stay patient had an MRI of the shoulder done which was reported to show supraspinatus tendinosis without demonstrated rotator cuff tear, nondisplaced fracture of the greater tuberosity, acromioclavicular arthrosis and mild subacromial/subdeltoid bursitis. Patient was evaluated by Dr. Barillas who recommended sling for 2 weeks with no active shoulder motion, passive range of motion by physical therapy, encourage elbow range of motion and pendulum exercises to the shoulder multiple times a day, and follow-up in 2 weeks for further evaluation. At present patient continues to have left shoulder pain, denies any focal motor weakness, sensory loss, headache, dizziness, visual disturbances or speech disturbances. Per patient he lives with his son who will be moving out soon, as an apartment building, has 5 steps to get into the house, does drive, has been using walker since around last November 2017. Per patient he has chronic low back pain and had seen Dr. Seals in the past for back injections. [] Plan ?PT for gait stability ?OT for ADLs ?Analgesics as needed ?Bowel protocol ?Labs reviewed?LFTs altered. AST/ALT?. Will defer to the hospitalist for further evaluation and recommendations. ?Hypothyroidism?on levothyroxine ?Anxiety/depression?on citalopram ?Acute left shoulder pain secondary to nondisplaced fracture of the greater tuberosity?further management recommendation per orthopedics Dr. Barillas, per orthopedic recommendation sling for 2 weeks with no active shoulder motion and follow-up in 2 weeks for further evaluation. ?History of cerebral palsy?patient does complain of spasticity in both lower extremities. Trial of baclofen 5 mg p.o. 3 times daily. ?JODEE?on CPAP ?Fall precautions ?GI/DVT prophylaxis?pantoprazole/enoxaparin ?Hospitalist consult to Dr. Brown ?Further medical management per hospitalist recommendation ?Follow-up with PCP and orthopedics on discharge.
--- NOTE | 2018-10-19 16:55 | NURSING ---
Per Dr. Pabon request he wanted Barbara SIGNALS ANALYST aware of elevated LFTs on admission and NNO's from her and this is a chronic condition and improved from prior labs. Patient voicing no complaints.
[2018-10-19 19:08] VITALS: BP 125/70; PULSE 68; RESP 16; TEMP 36.7; O2SAT 97
[2018-10-19] MEDS: Hydrocortisone 2.5% Crm 1 APPLIC TOPICAL (21:23)
[2018-10-20] MEDS: Levothyroxine 175 MCG Tablet PO (06:30)
[2018-10-20] MEDS: Enoxaparin 40 MG/0.4 ML Syringe SC (06:30)
[2018-10-20] MEDS: Baclofen 10 MG Tablet 5 MG PO ×3 (06:30→21:42)
[2018-10-20 09:22] VITALS: BP 109/53; PULSE 75; RESP 18; TEMP 36.6; O2SAT 94
[2018-10-20] MEDS: oxyCODONE 5 MG Tablet PO ×3 (10:22→21:48)
[2018-10-20] MEDS: Citalopram 20 MG Tablet PO (10:23)
[2018-10-20] MEDS: Pantoprazole Sodium 20 MG Tablet PO (10:23)
[2018-10-20] MEDS: Loratadine 10 MG Tablet PO (10:23)
[2018-10-20] MEDS: Senna Tablet 2 TABLET PO ×2 (10:23→21:42)
[2018-10-20 19:48] VITALS: BP 130/73; PULSE 77; RESP 16; TEMP 36.6; O2SAT 94
[2018-10-20 22:00] VITALS: PULSE 72
[2018-10-21] MEDS: oxyCODONE 5 MG Tablet PO ×4 (06:42→21:52)
[2018-10-21] MEDS: Baclofen 10 MG Tablet 5 MG PO ×3 (06:43→21:53)
[2018-10-21] MEDS: Enoxaparin 40 MG/0.4 ML Syringe SC (06:45)
[2018-10-21] MEDS: Levothyroxine 175 MCG Tablet PO (06:46)
[2018-10-21 07:29] VITALS: BP 120/73; PULSE 55; RESP 18; TEMP 36.6; O2SAT 94
[2018-10-21] MEDS: Senna Tablet 2 TABLET PO ×2 (07:45→21:53)
[2018-10-21] MEDS: Citalopram 20 MG Tablet PO (07:45)
[2018-10-21] MEDS: Pantoprazole Sodium 20 MG Tablet PO (07:45)
[2018-10-21] MEDS: Loratadine 10 MG Tablet PO (07:45)
[2018-10-21 21:45] VITALS: BP 100/50; PULSE 79; RESP 18; TEMP 36.9; O2SAT 99
--- NOTE | 2018-10-22 03:00 | NURSING ---
Reviewed and agree with COMMERCIAL HOUSEKEEPER documentation and FIMs charting.
[2018-10-22] MEDS: Baclofen 10 MG Tablet 5 MG PO ×3 (06:22→20:25)
[2018-10-22] MEDS: Levothyroxine 175 MCG Tablet PO (06:22)
[2018-10-22] MEDS: Enoxaparin 40 MG/0.4 ML Syringe SC (06:22)
[2018-10-22] MEDS: oxyCODONE 5 MG Tablet PO ×4 (06:24→20:26)
--- NOTE | 2018-10-22 06:37 | NURSING ---
pt noted to have sling off the am, pt reports that it was getting tangled up in the bed so he removed it . pt reminded that sling comes off for rom with PT and the increased risk of injuring his shoulder further
[2018-10-22] MEDS: Pantoprazole Sodium 20 MG Tablet PO (08:51)
[2018-10-22 08:52] VITALS: BP 127/90; PULSE 86; RESP 17; TEMP 36.7; O2SAT 97
[2018-10-22] MEDS: Citalopram 20 MG Tablet PO (08:52)
[2018-10-22] MEDS: Senna Tablet 2 TABLET PO ×2 (08:52→20:26)
[2018-10-22] MEDS: Loratadine 10 MG Tablet PO (08:52)
[2018-10-22] MEDS: Hydrocortisone 2.5% Crm 1 APPLIC TOPICAL (08:54)
--- NOTE | 2018-10-22 13:02 | PCM.PN.NEU ---
Subjective: He says he has some chronic iritis and wants to see ophthalmology. Apparently this is a chronic problem and he usually gets placed on steroids. I will asked the nursing staff to call his promotions assistant office for recommendations. We may need to transfer him for a evaluation. As far as team meeting he is doing well. Physical therapy and occupational therapy are working with him and he is improving. No issues from a nursing standpoint otherwise. Plan to discharge 11/01/18. He does live alone his son will be there temporarily however. - Physical Exam General: Alert, Oriented x3, Cooperative, No apparent distress HEENT: - - Right conjunctive does appear to be injected Neurological: Cranial nerves II-XII grossly intact Psych/Mental Status: Normal Affect, Alert and oriented to time, place, person, mood and affect Vital Signs Temp Pulse Resp BP Pulse Ox 36.7 C 86 17 127/90 H 97 10/22/18 08:52 10/22/18 08:52 10/22/18 08:52 10/22/18 08:52 10/22/18 08:52 Oxygen Delivery Method Room Air Weight: 103.8 kg Body Mass Index (BMI) 38.0 Intake and Output for Last 24 Hours 10/20/18 10/21/18 10/22/18 23:59 23:59 23:59 Intake Total 700 / 700 Balance 700 / 700 Medical Necessity - Tobacco Use Smoking Status: Current every day smoker Assessment/Plan All Active Problems Greater tuberosity of humerus fracture (Acute) Acute pain of left shoulder due to trauma (Acute) Debility (Acute) Right shoulder pain (Acute) The patient is a 53 year old M with PMH of hypothyroidism, anxiety/depression, spinal stenosis, JODEE on CPAP, cerebral palsy, GERD GERD, admitted to [facility] on 10/16/2018 with debility status post left shoulder pain, found to have nondisplaced fracture of the greater tuberosity, for greater than 3 hours therapy daily with a goal of returning back home at or near his prior level of functional independence. Per patient he had a fall about a month ago and since then he has been having progressively worsening excruciating left shoulder pain. During the inpatient stay patient had an MRI of the shoulder done which was reported to show supraspinatus tendinosis without demonstrated rotator cuff tear, nondisplaced fracture of the greater tuberosity, acromioclavicular arthrosis and mild subacromial/subdeltoid bursitis. Patient was evaluated by Dr. Barillas who recommended sling for 2 weeks with no active shoulder motion, passive range of motion by physical therapy, encourage elbow range of motion and pendulum exercises to the shoulder multiple times a day, and follow-up in 2 weeks for further evaluation. At present patient continues to have left shoulder pain, denies any focal motor weakness, sensory loss, headache, dizziness, visual disturbances or speech disturbances. Per patient he lives with his son who will be moving out soon, as an apartment building, has 5 steps to get into the house, does drive, has been using walker since around last November 2017. Per patient he has chronic low back pain and had seen Dr. Seals in the past for back injections. [] Plan ?PT for gait stability ?OT for ADLs ?Analgesics as needed ?Bowel protocol ?Labs reviewed?LFTs altered. AST/ALT?38/77. Will defer to the hospitalist for further evaluation and recommendations. ?Hypothyroidism?on levothyroxine ?Anxiety/depression?on citalopram ?Acute left shoulder pain secondary to nondisplaced fracture of the greater tuberosity?further management recommendation per orthopedics Dr. Barillas, per orthopedic recommendation sling for 2 weeks with no active shoulder motion and follow-up in 2 weeks for further evaluation. ?History of cerebral palsy?patient does complain of spasticity in both lower extremities. Trial of baclofen 5 mg p.o. 3 times daily. ?JODEE?on CPAP ?Fall precautions ?GI/DVT prophylaxis?pantoprazole/enoxaparin Chronic iritis: Sees ophthalmology at the [facility]. We will ask nursing staff to address this with the promotions assistant to see if we can treated this with ophthalmic steroids or if he needs an office visit. Somewhat concerned about discharge planning due to his combination of nonweightbearing and cerebral palsy.
--- NOTE | 2018-10-22 13:05 | PN.NEURO_ITS ---
Subjective: He says he has some chronic iritis and wants to see ophthalmology. Apparently this is a chronic problem and he usually gets placed on steroids. I will asked the nursing staff to call his sales intern office for recommendations. We may need to transfer him for a evaluation. As far as team meeting he is doing well. Physical therapy and occupational therapy are working with him and he is improving. No issues from a nursing standpoint otherwise. Plan to discharge 11/01/18. He does live alone his son will be there temporarily however. - Physical Exam General: Alert, Oriented x3, Cooperative, No apparent distress HEENT: - - Right conjunctive does appear to be injected Neurological: Cranial nerves II-XII grossly intact Psych/Mental Status: Normal Affect, Alert and oriented to time, place, person, mood and affect Vital Signs Temp Pulse Resp BP Pulse Ox 36.7 C 86 17 127/90 H 97 10/22/18 08:52 10/22/18 08:52 10/22/18 08:52 10/22/18 08:52 10/22/18 08:52 Oxygen Delivery Method Room Air Weight: 103.8 kg Body Mass Index (BMI) 38.0 Intake and Output for Last 24 Hours 10/20/18 10/21/18 10/22/18 23:59 23:59 23:59 Intake Total 700 / 700 Balance 700 / 700 Medical Necessity - Tobacco Use Smoking Status: Current every day smoker Assessment/Plan All Active Problems Greater tuberosity of humerus fracture (Acute) Acute pain of left shoulder due to trauma (Acute) Debility (Acute) Right shoulder pain (Acute) The patient is a 53 year old M with PMH of hypothyroidism, anxiety/depression, spinal stenosis, JODEE on CPAP, cerebral palsy, GERD GERD, admitted to [facility] on 10/16/2018 with debility status post left shoulder pain, found to have nondisplaced fracture of the greater tuberosity, for greater than 3 hours therapy daily with a goal of returning back home at or near his prior level of functional independence. Per patient he had a fall about a month ago and since then he has been having progressively worsening excruciating left shoulder pain. During the inpatient stay patient had an MRI of the shoulder done which was reported to show supraspinatus tendinosis without demonstrated rotator cuff tear, nondisplaced fracture of the greater tuberosity, acromioclavicular arthrosis and mild subacromial/subdeltoid bursitis. Patient was evaluated by Dr. Barillas who recommended sling for 2 weeks with no active shoulder motion, passive range of motion by physical therapy, encourage elbow range of motion and pendulum exercises to the shoulder multiple times a day, and follow-up in 2 weeks for further evaluation. At present patient continues to have left shoulder pain, denies any focal motor weakness, sensory loss, headache, dizziness, visual disturbances or speech disturbances. Per patient he lives with his son who will be moving out soon, as an apartment building, has 5 steps to get into the house, does drive, has been using walker since around last November 2017. Per patient he has chronic low back pain and had seen Dr. Seals in the past for back injections. [] Plan ?PT for gait stability ?OT for ADLs ?Analgesics as needed ?Bowel protocol ?Labs reviewed?LFTs altered. AST/ALT?38/77. Will defer to the hospitalist for further evaluation and recommendations. ?Hypothyroidism?on levothyroxine ?Anxiety/depression?on citalopram ?Acute left shoulder pain secondary to nondisplaced fracture of the greater tuberosity?further management recommendation per orthopedics Dr. Barillas, per orthopedic recommendation sling for 2 weeks with no active shoulder motion and follow-up in 2 weeks for further evaluation. ?History of cerebral palsy?patient does complain of spasticity in both lower extremities. Trial of baclofen 5 mg p.o. 3 times daily. ?JODEE?on CPAP ?Fall precautions ?GI/DVT prophylaxis?pantoprazole/enoxaparin Chronic iritis: Sees ophthalmology at the [facility] [place] [facility]. We will ask nursing staff to address this with the sales intern to see if we can treated this with ophthalmic steroids or if he needs an office visit. Somewhat concerned about discharge planning due to his combination of no nweightbearing and cerebral palsy.
--- NOTE | 2018-10-22 14:16 | CASEMGMT ---
Team meeting held today with pt present. Pt is receiving PT/OT and progressing with therapy. Pt does live with his son, but son is moving out soon and pt will be home alone. Insurance has allowed 16 days with target d/c of 11/01/18. Pt with concerns that he will not be ready to d/c home alone when d/c from [facility]. Pt inquiring about continued therapy in TCU prior to return home. Name placed on waiting list of TCU. Will continue with treatment plan and reteam next week. SW will continue to follow for support and d/c planning. NYDIA Ordoñez
[2018-10-22] MEDS: Tobram/Dexam 2.5ML OPTH.BTL 1 DRP RIGHT EYE (18:06)
[2018-10-22 20:20] VITALS: BP 110/50; PULSE 94; RESP 18; TEMP 36.8; O2SAT 98
[2018-10-23] MEDS: Tobram/Dexam 2.5ML OPTH.BTL 1 DRP RIGHT EYE ×4 (00:19→18:08)
--- NOTE | 2018-10-23 02:58 | NURSING ---
Reviewed and agree with NET APPLICATION ARCHITECT documentation and FIMs charting.
[2018-10-23] MEDS: Baclofen 10 MG Tablet 5 MG PO ×3 (06:06→20:41)
[2018-10-23] MEDS: Enoxaparin 40 MG/0.4 ML Syringe SC (06:09)
[2018-10-23] MEDS: Levothyroxine 175 MCG Tablet PO (06:13)
[2018-10-23] MEDS: oxyCODONE 5 MG Tablet PO ×4 (06:15→20:28)
[2018-10-23] MEDS: Pantoprazole Sodium 20 MG Tablet PO (07:58)
[2018-10-23] MEDS: Loratadine 10 MG Tablet PO (07:58)
[2018-10-23] MEDS: Hydrocortisone 2.5% Crm 1 APPLIC TOPICAL (07:59)
[2018-10-23] MEDS: Senna Tablet 2 TABLET PO (07:59)
[2018-10-23] MEDS: Citalopram 20 MG Tablet PO (07:59)
[2018-10-23 09:22] VITALS: BP 121/72; PULSE 62; RESP 18; TEMP 36.8; O2SAT 95
--- NOTE | 2018-10-23 15:17 | PCM.PN.HOSP ---
Subjective: Patient seen and examined. No new complains. Therapy has been going well. Objective: Physical Exam General: Alert, Oriented x3, Cooperative HEENT: Atraumatic, PERRLA, EOMI, Normocephalic Neck: Supple, No JVD, Negative Carotid Bruits Lungs: Clear to auscultation, Normal air movement Cardiovascular: Regular rate, Regular Rhythm, Normal S1, Normal S2, No murmurs Abdomen: Bowel Sounds Present, Soft, Non Tender, Non-Distended, Obese Extremities: No clubbing, No cyanosis, No edema, Capillary Refill Less than 3 Seconds, in lower leg braces Skin: No rashes, No breakdown Musculoskeletal: - - Left arm in sling Neurological: Cranial nerves II-XII grossly intact, Neuro grossly intact, Psych/Mental Status: Normal Affect, Appropriate Vitals/I&O's: Vital Signs Temp Pulse Resp BP Pulse Ox 98.3 F 62 18 121/72 H 95 10/23/18 09:22 10/23/18 09:22 10/23/18 09:22 10/23/18 09:22 10/23/18 09:22 Oxygen Delivery Method Room Air Weight: 103.8 kg Body Mass Index (BMI) 38.0 Intake and Output for Last 24 Hours 10/21/18 10/22/18 10/23/18 23:59 23:59 23:59 Intake Total 680 / 680 Balance 680 / 680 Current Medications Baclofen (Lioresal) 5 mg PO TID [facility] Last Admin: 10/23/18 13:04 Dose: 5 mg Bisacodyl (Dulcolax) 10 mg RECTAL .PRN X 1 PRN PRN Reason: Constipation Citalopram Hydrobromide (Celexa) 20 mg PO DAILY [facility] Last Admin: 10/23/18 07:59 Dose: 20 mg Enoxaparin Sodium (Lovenox) 40 mg SC DAILY@0600 [facility] Last Admin: 10/23/18 06:09 Dose: 40 mg Hydrocortisone (Hytone) 1 applic TOPICAL BID PRN PRN; Protocol PRN Reason: RASH/TOPICAL IRRITATION Last Admin: 10/23/18 07:59 Dose: 1 applicatio Levothyroxine Sodium (Synthroid) 175 mcg PO DAILY@0600 [facility] Last Admin: 10/23/18 06:13 Dose: 175 mcg Loratadine (Claritin) 10 mg PO DAILY [facility] Last Admin: 10/23/18 07:58 Dose: 10 mg Lorazepam (Ativan) 1 mg PO BID PRN PRN Reason: ANXIETY Last Admin: 10/17/18 10:44 Dose: 1 mg Magnesium Hydroxide (Milk Of Magnesia) 30 ml PO DAILY PRN PRN PRN Reason: Constipation Last Admin: 10/17/18 20:32 Dose: 30 ml Oxycodone HCl (Oxyir) 5 - 10 mg PO Q4H PRN PRN PRN Reason: PAIN Last Admin: 10/23/18 15:12 Dose: 10 mg Pantoprazole Sodium (Protonix) 20 mg PO DAILY@0800 [facility] Last Admin: 10/23/18 07:58 Dose: 20 mg Senna (Senokot) 2 tablet PO BID [facility] Last Admin: 10/23/18 07:59 Dose: 2 tablet Tobramycin/Dexamethasone (Tobradex) 1 drop RIGHT EYE Q6 [facility] Stop: 10/29/18 12:01 Last Admin: 10/23/18 13:01 Dose: 1 drop Medical Necessity - Tobacco Use Smoking Status: Current every day smoker Assessment/Plan All Active Problems Greater tuberosity of humerus fracture (Acute) Acute pain of left shoulder due to trauma (Acute) Debility (Acute) Right shoulder pain (Acute) 1. Debility secondary to left shoulder pain secondary to a nondisplaced fracture of the greater tuberosity, in left arm sling, following with orthopedics 2. Cerebral palsy, on baclofen 3. Anxiety/depression, on citalopram regimen. 4. Hypothyroidism, on Synthroid regimen. 5. JODEE on CPAP regimen. 6. GERD, on PPI. 7. DVT prophylaxis-Lovenox subcu Code Visit Inpatient E&M: 83663 Subs Hosp L2
--- NOTE | 2018-10-23 18:00 | NURSING ---
Refused MOM x several attempts due to day 3 no BM, good BS, no complaints voiced.
[2018-10-23] MEDS: Senna/Docusate Sodium 1 Tablet 2 TABLET PO (20:42)
[2018-10-23 20:45] VITALS: BP 135/71; PULSE 71; RESP 18; TEMP 36.8; O2SAT 94
[2018-10-23 22:00] VITALS: PULSE 76
[2018-10-24] MEDS: Tobram/Dexam 2.5ML OPTH.BTL 1 DRP RIGHT EYE ×5 (00:41→23:08)
[2018-10-24] MEDS: Baclofen 10 MG Tablet 5 MG PO ×3 (06:32→21:56)
[2018-10-24] MEDS: Levothyroxine 175 MCG Tablet PO (06:33)
[2018-10-24] MEDS: Enoxaparin 40 MG/0.4 ML Syringe SC (06:33)
[2018-10-24 07:06] VITALS: BP 152/72; PULSE 58; RESP 18; TEMP 36.5; O2SAT 99
[2018-10-24] MEDS: Citalopram 20 MG Tablet PO (07:46)
[2018-10-24] MEDS: oxyCODONE 5 MG Tablet PO ×4 (07:46→22:03)
[2018-10-24] MEDS: Pantoprazole Sodium 20 MG Tablet PO (07:46)
[2018-10-24] MEDS: Loratadine 10 MG Tablet PO (07:47)
[2018-10-24] MEDS: Senna/Docusate Sodium 1 Tablet 2 TABLET PO ×2 (07:47→21:56)
[2018-10-24 10:29] VITALS: BP 129/64; PULSE 66
--- NOTE | 2018-10-24 13:16 | PN.NEURO_ITS ---
Subjective: Reports some back pain. Otherwise he is doing well, tolerating therapies. He does think the pain medicines wears off too quickly but he does not want to increase these as of yet. He would like us to contact Dr. Vidal for possible epidural steroid injection. No other complaints. No GI or complaints. Sleeping well. - Physical Exam General: Alert, Oriented x3, Cooperative, No apparent distress HEENT: PERRLA, EOMI Neurological: Cranial nerves II-XII grossly intact Psych/Mental Status: Normal Affect, Alert and oriented to time, place, person, mood and affect Vital Signs Temp Pulse Resp BP Pulse Ox 36.5 C L 66 18 129/64 H 99 10/24/18 07:06 10/24/18 10:29 10/24/18 07:06 10/24/18 10:29 10/24/18 07:06 Oxygen Delivery Method Room Air Weight: 103.3 kg Body Mass Index (BMI) 38.0 Intake and Output for Last 24 Hours 10/22/18 10/23/18 10/24/18 23:59 23:59 23:59 Intake Total 680 / 680 Balance 680 / 680 Current Medications Generic Name Dose Route Start Last Admin Trade Name Freq PRN Reason Stop Dose Admin Baclofen 5 mg 10/18/18 14:00 10/24/18 13:00 Lioresal PO 5 mg TID TONY Administration Bisacodyl 10 mg 10/16/18 18:53 Dulcolax RECTAL .PRN X 1 PRN Constipation Citalopram Hydrobromide 20 mg 10/17/18 10:00 10/24/18 07:46 Celexa PO 20 mg DAILY TONY Administration Enoxaparin Sodium 40 mg 10/17/18 06:00 10/24/18 06:33 Lovenox SC 40 mg DAILY@0600 TONY Administration Hydrocortisone 1 applic 10/19/18 16:18 10/23/18 07:59 Hytone TOPICAL 1 applicatio BID PRN PRN Administration RASH/TOPICAL IRRITATION Protocol Levothyroxine Sodium 175 mcg 10/17/18 06:00 10/24/18 06:33 Synthroid PO 175 mcg DAILY@0600 TONY Administration Loratadine 10 mg 10/17/18 10:00 10/24/18 07:47 Claritin PO 10 mg DAILY TONY Administration Lorazepam 1 mg 10/16/18 18:50 10/17/18 10:44 Ativan PO 1 mg BID PRN Administration ANXIETY Magnesium Hydroxide 30 ml 10/16/18 18:50 10/17/18 20:32 Milk Of Magnesia PO 30 ml DAILY PRN PRN Administration Constipation Oxycodone HCl 5 - 10 mg 10/17/18 11:10 10/24/18 13:01 Oxyir PO 10 mg Q4H PRN PRN Administration PAIN Pantoprazole Sodium 20 mg 10/17/18 08:00 10/24/18 07:46 Protonix PO 20 mg DAILY@0800 TONY Administration Senna/Docusate Sodium 2 tablet 10/23/18 22:00 10/24/18 07:47 Senokot-S, Rosalba-Colace PO 2 tablet BID TONY Administration Tobramycin/Dexamethasone 1 drop 10/22/18 18:00 10/24/18 11:27 Tobradex RIGHT EYE 10/29/18 12:01 1 drop Q6 TONY Administration Medical Necessity - Tobacco Use Smoking Status: Current every day smoker Assessment/Plan All Active Problems Greater tuberosity of humerus fracture (Acute) Acute pain of left shoulder due to trauma (Acute) Debility (Acute) Right shoulder pain (Acute) The patient is a 53 year old M with PMH of hypothyroidism, anxiety/depression, spinal stenosis, JODEE on CPAP, cerebral palsy, GERD GERD, admitted to [facility] on 10/16/2018 with debility status post left shoulder pa in, found to have nondisplaced fracture of the greater tuberosity, for greater than 3 hours therapy daily with a goal of returning back home at or near his prior level of functional independence. Per patient he had a fall about a month ago and since then he has been having progressively worsening excruciating left shoulder pain. During the inpatient stay patient had an MRI of the shoulder done which was reported to show supraspinatus tendinosis without demonstrated rotator cuff tear, nondisplaced fracture of the greater tuberosity, acromioclavicular arthrosis and mild subacromial/subdeltoid bursitis. Patient was evaluated by Dr. Barillas who recommended sling for 2 weeks with no active shoulder motion, passive range of motion by physical therapy, encourage elbow range of motion and pendulum exercises to the shoulder multiple times a day, and follow-up in 2 weeks for further evaluation. At present patient continues to have left shoulder pain, denies any focal motor weakness, sensory loss, headache, dizziness, visual disturbances or speech disturbances. Per patient he lives with his son who will be moving out soon, as an apartment building, has 5 steps to get into the house, does drive, has been using walker since around last November 2017. Per patient he has chronic low back pain and had seen Dr. Seals in the past for back injections. [] Plan ?PT for gait stability ?OT for ADLs ?Analgesics as needed ?Bowel protocol ?Labs reviewed?LFTs altered. AST/ALT?. Will defer to the hospitalist for further evaluation and recommendations. ?Hypothyroidism?on levothyroxine ?Anxiety/depression?on citalopram ?Acute left shoulder pain secondary to nondisplaced fracture of the greater tuberosity?further management recommendation per orthopedics Dr. Barillas, per orthopedic recommendation sling for 2 weeks with no active shoulder motion and follow-up in 2 weeks for further evaluation. ?History of cerebral palsy?patient does complain of spasticity in both lower extremities. Trial of baclofen 5 mg p.o. 3 times daily. ?JODEE?on CPAP ?Fall precautions ?GI/DVT prophylaxis?pantoprazole/enoxaparin History of spinal stenosis, receives intermittent epidural steroid injections by Dr. bagley. We will ask for Dr. Bagley's opinion. Chronic iritis: Sees ophthalmology at the [facility]. We will ask nursing staff to address this with the assistant professor of forestry to see if we can treated this with ophthalmic steroids or if he needs an office visit. 10/24: Improved. Was prescribed tobramycin ophthalmic. Somewhat concerned about discharge planning due to his combination of nonweightbearing and cerebral palsy.
[2018-10-24 20:47] VITALS: BP 118/57; PULSE 71; RESP 18; TEMP 36.6; O2SAT 96
[2018-10-25] MEDS: Tobram/Dexam 2.5ML OPTH.BTL 1 DRP RIGHT EYE ×3 (06:41→17:16)
[2018-10-25] MEDS: Levothyroxine 175 MCG Tablet PO (06:42)
[2018-10-25] MEDS: Baclofen 10 MG Tablet 5 MG PO ×3 (06:42→21:12)
[2018-10-25] MEDS: Enoxaparin 40 MG/0.4 ML Syringe SC (06:42)
[2018-10-25] MEDS: oxyCODONE 5 MG Tablet PO ×4 (06:51→21:18)
[2018-10-25] MEDS: Pantoprazole Sodium 20 MG Tablet PO (08:03)
[2018-10-25] MEDS: Senna/Docusate Sodium 1 Tablet 2 TABLET PO ×2 (08:03→21:12)
[2018-10-25] MEDS: Citalopram 20 MG Tablet PO (08:03)
[2018-10-25] MEDS: Loratadine 10 MG Tablet PO (08:04)
[2018-10-25 08:42] VITALS: BP 114/74; PULSE 57; RESP 16; TEMP 36.4; O2SAT 96
--- NOTE | 2018-10-25 14:31 | PN_ITS ---
Subjective: Patient seen and examined. No new complains. Objective: hysical Exam General: Alert, Oriented x3, Cooperative HEENT: Atraumatic, PERRLA, EOMI, Normocephalic Neck: Supple, No JVD, Negative Carotid Bruits Lungs: Clear to auscultation, Normal air movement Cardiovascular: Regular rate, Regular Rhythm, Normal S1, Normal S2, No murmurs Abdomen: Bowel Sounds Present, Soft, Non Tender, Non-Distended, Obese Extremities: No clubbing, No cyanosis, No edema, Capillary Refill Less than 3 Seconds, in lower leg braces Skin: No rashes, No breakdown Musculoskeletal: - - Left arm in sling Neurological: Cranial nerves II-XII grossly intact, Neuro grossly intact, Psych/Mental Status: Normal Affect, Appropriate Vitals/I&O's: Vital Signs Temp Pulse Resp BP Pulse Ox 97.5 F L 57 L 16 114/74 96 10/25/18 08:42 10/25/18 08:42 10/25/18 08:42 10/25/18 08:42 10/25/18 08:42 Oxygen Delivery Method Room Air Weight: 103.3 kg Body Mass Index (BMI) 38.0 Intake and Output for Last 24 Hours 10/23/18 10/24/18 10/25/18 23:59 23:59 23:59 Intake Total 680 / 680 480 / 480 Balance 680 / 680 480 / 480 Current Medications Baclofen (Lioresal) 5 mg PO TID [facility] Last Admin: 10/25/18 14:26 Dose: 5 mg Bisacodyl (Dulcolax) 10 mg RECTAL .PRN X 1 PRN PRN Reason: Constipation Calcium Carbonate (Tums) 500 mg PO Q6H PRN PRN PRN Reason: INDIGESTION Citalopram Hydrobromide (Celexa) 20 mg PO DAILY [facility] Last Admin: 10/25/18 08:03 Dose: 20 mg Enoxaparin Sodium (Lovenox) 40 mg SC DAILY@0600 [facility] Last Admin: 10/25/18 06:42 Dose: 40 mg Hydrocortisone (Hytone) 1 applic TOPICAL BID PRN PRN; Protocol PRN Reason: RASH/TOPICAL IRRITATION Last Admin: 10/23/18 07:59 Dose: 1 applicatio Levothyroxine Sodium (Synthroid) 175 mcg PO DAILY@0600 [facility] Last Admin: 10/25/18 06:42 Dose: 175 mcg Loratadine (Claritin) 10 mg PO DAILY [facility] Last Admin: 10/25/18 08:04 Dose: 10 mg Lorazepam (Ativan) 1 mg PO BID PRN PRN Reason: ANXIETY Last Admin: 10/17/18 10:44 Dose: 1 mg Magnesium Hydroxide (Milk Of Magnesia) 30 ml PO DAILY PRN PRN PRN Reason: Constipation Last Admin: 10/17/18 20:32 Dose: 30 ml Oxycodone HCl (Oxyir) 5 - 10 mg PO Q4H PRN PRN PRN Reason: PAIN Last Admin: 10/25/18 12:35 Dose: 10 mg Pantoprazole Sodium (Protonix) 20 mg PO DAILY@0800 [facility] Last Admin: 10/25/18 08:03 Dose: 20 mg Senna/Docusate Sodium (Senokot-S, Rosalba-Colace) 2 tablet PO BID [facility] Last Admin: 10/25/18 08:03 Dose: 2 tablet Tobramycin/Dexamethasone (Tobradex) 1 drop RIGHT EYE Q6 [facility] Stop: 10/29/18 12:01 Last Admin: 10/25/18 11:43 Dose: 1 drop Medical Necessity - Tobacco Use Smoking Status: Current every day smoker Assessment/Plan All Active Problems Greater tuberosity of humerus fracture (Acute) Acute pain of left shoulder due to trauma (Acute) Debility (Acute) Right shoulder pain (Acute) 1. Debility secondary to left shoulder pain secondary to a nondisplaced fracture of the greater tuberosity, in left arm sling, following with orthopedics 2. Cerebral palsy, on baclofen 3. Anxiety/depression, on citalopram regimen. 4. Hypothyroidism, on Synthroid regimen. 5. JODEE on CPAP regimen. 6. GERD, on PPI. 7. DVT prophylaxis-Lovenox subcu Code Visit Inpatient E&M: 88645 Subs Hosp L2
--- NOTE | 2018-10-25 14:35 | CPS ---
The patient reported to his nurse that he didn't think his machine was working right. This tech was asked to help from respiratory therapy. The patient reports water level lowering from the water chamber more than usual - stating typically after 4 hours it's near empty. Explained to the patient that his mask could be leaking - causing the humidifier level to lower. The patient didn't seem to think that was the problem. Explained we can't do anything with his home equipment, and he will need to have a DME company look at his CPAP machine/humidifier to determine if there are any problems. Patient currently does not have a DME company due to [employer] no longer in business. The patient has been in contact with [employer], and would like to get his supplies from them. The patient's cushion was nicotine stained and appeared dirty. The patient was given a new cushion from the [facility] as mitch. This tech replaced the old cushion with new on the mask. The patient requested to keep his old cushion. This tech advised the patient to clean it before using it again with Yuko dish soap or mild dish detergent to clean off oils and dirt. The patient has a goatee and denies cleaning his cushion ever. Advised the patient the hide puller recommends the cushions to be cleaned every day to reduce leak problems. He states he replaces his cushion every month, but he needs to get established with a new home care company so he can get new supplies. Because he is changing home care companies (used to have [employer]), he will need a new prescription for supplies, as well as a [id number] encounter with a provider documenting he is compliant and benefitting from his CPAP therapy. The patient understood this. Explained to the patient he can ask Dr. Cobian to do this (his PCP).
[2018-10-25 19:31] VITALS: BP 137/73; PULSE 66; RESP 20; TEMP 36.8; O2SAT 96
[2018-10-26] MEDS: Tobram/Dexam 2.5ML OPTH.BTL 1 DRP RIGHT EYE ×4 (01:51→17:11)
[2018-10-26] MEDS: Levothyroxine 175 MCG Tablet PO (05:53)
[2018-10-26] MEDS: Enoxaparin 40 MG/0.4 ML Syringe SC (05:54)
[2018-10-26] MEDS: Baclofen 10 MG Tablet 5 MG PO ×3 (05:54→21:51)
[2018-10-26 07:00] VITALS: BP 101/60; PULSE 68; RESP 12; TEMP 36.5; O2SAT 96
[2018-10-26] MEDS: Senna/Docusate Sodium 1 Tablet 2 TABLET PO ×2 (08:47→21:51)
[2018-10-26] MEDS: oxyCODONE 5 MG Tablet PO ×4 (08:47→21:50)
[2018-10-26] MEDS: Citalopram 20 MG Tablet PO (08:47)
[2018-10-26] MEDS: Pantoprazole Sodium 20 MG Tablet PO (08:47)
[2018-10-26] MEDS: Loratadine 10 MG Tablet PO (08:47)
--- NOTE | 2018-10-26 13:44 | PCM.PN.NEU ---
Subjective: no new complaints. concerned about shoulder and back pain, would like dr bagley consulted for epidural steroids which preivously helped - Physical Exam General: Alert, Oriented x3, Cooperative HEENT: PERRLA Neck: Supple Psych/Mental Status: Alert and oriented to time, place, person, mood and affect Vital Signs Temp Pulse Resp BP Pulse Ox 36.5 C L 68 12 101/60 96 10/26/18 07:00 10/26/18 07:00 10/26/18 07:00 10/26/18 07:00 10/26/18 07:00 Oxygen Delivery Method Room Air Weight: 103.3 kg Body Mass Index (BMI) 38.0 Intake and Output for Last 24 Hours 10/24/18 10/25/18 10/26/18 23:59 23:59 23:59 Intake Total 480 / 480 360 / 360 Balance 480 / 480 360 / 360 Medical Necessity - Tobacco Use Smoking Status: Current every day smoker Assessment/Plan All Active Problems Greater tuberosity of humerus fracture (Acute) Acute pain of left shoulder due to trauma (Acute) Debility (Acute) Right shoulder pain (Acute) The patient is a 53 year old M with PMH of hypothyroidism, anxiety/depression, spinal stenosis, JODEE on CPAP, cerebral palsy, GERD GERD, admitted to [facility] on 10/16/2018 with debility status post left shoulder pain, found to have nondisplaced fracture of the greater tuberosity, for greater than 3 hours therapy daily with a goal of returning back home at or near his prior level of functional independence. Per patient he had a fall about a month ago and since then he has been having progressively worsening excruciating left shoulder pain. During the inpatient stay patient had an MRI of the shoulder done which was reported to show supraspinatus tendinosis without demonstrated rotator cuff tear, nondisplaced fracture of the greater tuberosity, acromioclavicular arthrosis and mild subacromial/subdeltoid bursitis. Patient was evaluated by Dr. Barillas who recommended sling for 2 weeks with no active shoulder motion, passive range of motion by physical therapy, encourage elbow range of motion and pendulum exercises to the shoulder multiple times a day, and follow-up in 2 weeks for further evaluation. At present patient continues to have left shoulder pain, denies any focal motor weakness, sensory loss, headache, dizziness, visual disturbances or speech disturbances. Per patient he lives with his son who will be moving out soon, as an apartment building, has 5 steps to get into the house, does drive, has been using walker since around last November 2017. Per patient he has chronic low back pain and had seen Dr. Seals in the past for back injections. [] Plan ?PT for gait stability ?OT for ADLs ?Analgesics as needed ?Bowel protocol ?Labs reviewed?LFTs altered. AST/ALT?. Will defer to the hospitalist for further evaluation and recommendations. ?Hypothyroidism?on levothyroxine ?Anxiety/depression?on citalopram ?Acute left shoulder pain secondary to nondisplaced fracture of the greater tuberosity?further management recommendation per orthopedics Dr. Barillas, per orthopedic recommendation sling for 2 weeks with no active shoulder motion and follow-up in 2 weeks for further evaluation. ?History of cerebral palsy?patient does complain of spasticity in both lower extremities. Trial of baclofen 5 mg p.o. 3 times daily. ?JODEE?on CPAP ?Fall precautions ?GI/DVT prophylaxis?pantoprazole/enoxaparin History of spinal stenosis, receives intermittent epidural steroid injections by Dr. bagley. We will ask for Dr. Bagley's opinion. Chronic iritis: Sees ophthalmology at the [facility] [place]. We will ask nursing staff to address this with the physical optics teacher to see if we can treated this with ophthalmic steroids or if he needs an office visit. 10/24: Improved. Was prescribed tobramycin ophthalmic. Somewhat concerned about discharge planning due to his combination of nonweightbearing and cerebral palsy.
[2018-10-26 19:36] VITALS: BP 119/78; PULSE 56; RESP 16; TEMP 36.6; O2SAT 97
[2018-10-27] MEDS: Tobram/Dexam 2.5ML OPTH.BTL 1 DRP RIGHT EYE ×4 (00:09→18:01)
[2018-10-27] MEDS: Enoxaparin 40 MG/0.4 ML Syringe SC (05:18)
[2018-10-27] MEDS: Levothyroxine 175 MCG Tablet PO (05:18)
[2018-10-27] MEDS: Baclofen 10 MG Tablet 5 MG PO ×3 (05:19→22:19)
[2018-10-27] MEDS: oxyCODONE 5 MG Tablet PO ×4 (05:19→22:19)
[2018-10-27 07:00] VITALS: BP 118/70; PULSE 92; RESP 17; TEMP 36.4; O2SAT 95
[2018-10-27] MEDS: Pantoprazole Sodium 20 MG Tablet PO (08:53)
[2018-10-27] MEDS: Senna/Docusate Sodium 1 Tablet 2 TABLET PO ×2 (08:53→22:20)
[2018-10-27] MEDS: Loratadine 10 MG Tablet PO (08:53)
[2018-10-27] MEDS: Citalopram 20 MG Tablet PO (08:53)
--- NOTE | 2018-10-27 09:16 | PN_ITS ---
Subjective: No new complains. Objective: Physical Exam General: Alert, Oriented x3, Cooperative HEENT: Atraumatic, PERRLA, EOMI, Normocephalic Neck: Supple, No JVD, Negative Carotid Bruits Lungs: Clear to auscultation, Normal air movement Cardiovascular: Regular rate, Regular Rhythm, Normal S1, Normal S2, No murmurs Abdomen: Bowel Sounds Present, Soft, Non Tender, Non-Distended, Obese Extremities: No clubbing, No cyanosis, No edema, Capillary Refill Less than 3 Seconds, in lower leg braces Skin: No rashes, No breakdown Musculoskeletal: - - Left arm in sling Neurological: Cranial nerves II-XII grossly intact, Neuro grossly intact, Psych/Mental Status: Normal Affect, Appropriate Vitals/I&O's: Vital Signs Temp Pulse Resp BP Pulse Ox 97.8 F 56 L 16 119/78 97 10/26/18 19:36 10/26/18 19:36 10/26/18 19:36 10/26/18 19:36 10/26/18 19:36 Oxygen Delivery Method Room Air Weight: 103.3 kg Body Mass Index (BMI) 38.0 Intake and Output for Last 24 Hours 10/25/18 10/26/18 10/27/18 23:59 23:59 23:59 Intake Total 480 / 480 360 / 360 Balance 480 / 480 360 / 360 Current Medications Baclofen (Lioresal) 5 mg PO TID [facility] Last Admin: 10/27/18 05:19 Dose: 5 mg Bisacodyl (Dulcolax) 10 mg RECTAL .PRN X 1 PRN PRN Reason: Constipation Calcium Carbonate (Tums) 500 mg PO Q6H PRN PRN PRN Reason: INDIGESTION Citalopram Hydrobromide (Celexa) 20 mg PO DAILY [facility] Last Admin: 10/27/18 08:53 Dose: 20 mg Enoxaparin Sodium (Lovenox) 40 mg SC DAILY@0600 [facility] Last Admin: 10/27/18 05:18 Dose: 40 mg Hydrocortisone (Hytone) 1 applic TOPICAL BID PRN PRN; Protocol PRN Reason: RASH/TOPICAL IRRITATION Last Admin: 10/23/18 07:59 Dose: 1 applicatio Levothyroxine Sodium (Synthroid) 175 mcg PO DAILY@0600 [facility] Last Admin: 10/27/18 05:18 Dose: 175 mcg Loratadine (Claritin) 10 mg PO DAILY [facility] Last Admin: 10/27/18 08:53 Dose: 10 mg Lorazepam (Ativan) 1 mg PO BID PRN PRN Reason: ANXIETY Last Admin: 10/17/18 10:44 Dose: 1 mg Magnesium Hydroxide (Milk Of Magnesia) 30 ml PO DAILY PRN PRN PRN Reason: Constipation Last Admin: 10/17/18 20:32 Dose: 30 ml Oxycodone HCl (Oxyir) 5 - 10 mg PO Q4H PRN PRN PRN Reason: PAIN Last Admin: 10/27/18 05:19 Dose: 10 mg Pantoprazole Sodium (Protonix) 20 mg PO DAILY@0800 [facility] Last Admin: 10/27/18 08:53 Dose: 20 mg Senna/Docusate Sodium (Senokot-S, Rosalba-Colace) 2 tablet PO BID [facility] Last Admin: 10/27/18 08:53 Dose: 2 tablet Tobramycin/Dexamethasone (Tobradex) 1 drop RIGHT EYE Q6 [facility] Stop: 10/29/18 12:01 Last Admin: 10/27/18 05:29 Dose: 1 drop Medical Necessity - Tobacco Use Smoking Status: Current every day smoker Assessment/Plan All Active Problems Greater tuberosity of humerus fracture (Acute) Acute pain of left shoulder due to trauma (Acute) Debility (Acute) Right shoulder pain (Acute) 1. Debility secondary to left shoulder pain secondary to a nondisplaced fracture of the greater tuberosity, in left arm sling, following with orthopedics 2. Cerebral palsy, on baclofen 3. Anxiety/depression, on citalopram regimen. 4. Hypothyroidism, on Synthroid regimen. 5. JODEE on CPAP regimen. 6. GERD, on PPI. 7. DVT prophylaxis-Lovenox subcu Code Visit Inpatient E&M: 39597 Subs Hosp L2
--- NOTE | 2018-10-27 12:16 | NURSING ---
pt medicated with Oxyir 10mg pt has c/o pain to back and L. shoulder states pain is 8/10, pt playing play station and relaxed in chair does not appear to be in any stress.
--- NOTE | 2018-10-27 17:36 | NURSING ---
Pt's call light had gone off one time only, this RN answered light at front desk assistant. TELECOM ENGINEER was in another pt's room doing pt. care, this RN was talking to [facility] nurse at front desk assistant and giving report to [facility] picking up pt. for [facility]. It took this RN 5-10 mins max to get to pt's room, pt was disgruntle with this RN stating, it took well over 30 mins for us to help him this RN explained situation and told pt it was not that long pt wanted to argue with this RN. This RN stated to pt, Sorry it seemed that long, however I am not going to argue with you. this RN took pt to the restroom and no more discussion took place about incident.
[2018-10-27 19:54] VITALS: BP 157/85; PULSE 83; RESP 18; TEMP 36.9; O2SAT 95
[2018-10-28] MEDS: Tobram/Dexam 2.5ML OPTH.BTL 1 DRP RIGHT EYE ×5 (00:33→23:18)
[2018-10-28] MEDS: Enoxaparin 40 MG/0.4 ML Syringe SC (06:00)
[2018-10-28] MEDS: Levothyroxine 175 MCG Tablet PO (06:01)
[2018-10-28] MEDS: Baclofen 10 MG Tablet 5 MG PO ×3 (06:01→21:50)
[2018-10-28] MEDS: oxyCODONE 5 MG Tablet PO ×4 (06:03→21:51)
[2018-10-28 07:30] VITALS: BP 126/71; PULSE 60; RESP 18; TEMP 36.4; O2SAT 96
[2018-10-28] MEDS: Loratadine 10 MG Tablet PO (07:55)
[2018-10-28] MEDS: Citalopram 20 MG Tablet PO (07:55)
[2018-10-28] MEDS: Pantoprazole Sodium 20 MG Tablet PO (07:55)
[2018-10-28] MEDS: Senna/Docusate Sodium 1 Tablet 2 TABLET PO ×2 (07:55→21:51)
--- NOTE | 2018-10-28 12:19 | NURSING ---
refused vahid hose and am hygiene this shift, offered multiple times and education provided about vahid hose.
--- NOTE | 2018-10-28 13:10 | NURSING ---
when offered to ambulate halls with pt or workout on nustep, pt refused multiple times. Continues to play video games and look on phone. Call light in reach, no complaints voiced at this time.
[2018-10-28 19:38] VITALS: BP 103/61; PULSE 61; RESP 18; TEMP 36.7; O2SAT 98
--- NOTE | 2018-10-28 19:57 | NURSING ---
Refusing HS shower. States wants one in the morning
[2018-10-29] MEDS: Tobram/Dexam 2.5ML OPTH.BTL 1 DRP RIGHT EYE ×2 (05:51→11:13)
[2018-10-29] MEDS: Enoxaparin 40 MG/0.4 ML Syringe SC (05:51)
[2018-10-29] MEDS: Baclofen 10 MG Tablet 5 MG PO (05:52)
[2018-10-29] MEDS: Levothyroxine 175 MCG Tablet PO (05:52)
[2018-10-29] MEDS: oxyCODONE 5 MG Tablet PO ×4 (05:55→23:16)
--- NOTE | 2018-10-29 06:35 | NURSING ---
Refuses shower at this time - would like to take one later in the day.
[2018-10-29 07:12] VITALS: BP 111/68; PULSE 56; RESP 18; TEMP 36.8; O2SAT 97
[2018-10-29] MEDS: Citalopram 20 MG Tablet PO (08:26)
[2018-10-29] MEDS: Pantoprazole Sodium 20 MG Tablet PO (08:26)
[2018-10-29] MEDS: Senna/Docusate Sodium 1 Tablet 2 TABLET PO ×2 (08:27→21:34)
[2018-10-29] MEDS: Loratadine 10 MG Tablet PO (08:27)
--- NOTE | 2018-10-29 11:53 | PCM.PN.HOSP ---
Subjective: Admitted to the inpatient rehab unit with significant debility following fall with left shoulder pain. Imaging studies demonstrated nondisplaced fracture involving the greater tuberosity of the left humerus. Objective: GENERAL: cooperative HEENT: Atraumatic; moist oral mucosa EYES; Anicteric, Normal Conjunctiva NECK; supple, normal thyroid, no distended JVD. RESPIRATORY: Diminished to auscultation bilaterally, CARDIOVASCULAR: Regular S1 S2, no audible murmurs GI: soft, non-tender, normoactive bowel sounds, : No Renal angle tenderness; EXTREMITIES: No edema, no clubbing, no cyanosis. MUSCULOSKELETAL: Left upper extremity immobilized NEURO: Awake; no lateralizing signs. SKIN: No Rash PSYCH; Normal affect Vitals/I&O's: Vital Signs Temp Pulse Resp BP Pulse Ox 98.3 F 56 L 18 111/68 97 10/29/18 07:12 10/29/18 07:12 10/29/18 07:12 10/29/18 07:12 10/29/18 07:12 Oxygen Delivery Method Room Air Weight: 103.3 kg Body Mass Index (BMI) 38.0 Intake and Output for Last 24 Hours 10/27/18 10/28/18 10/29/18 23:59 23:59 23:59 Intake Total 720 / 720 440 / 440 Balance 720 / 720 440 / 440 Current Medications Bisacodyl (Dulcolax) 10 mg RECTAL .PRN X 1 PRN PRN Reason: Constipation Calcium Carbonate (Tums) 500 mg PO Q6H PRN PRN PRN Reason: INDIGESTION Citalopram Hydrobromide (Celexa) 20 mg PO DAILY [facility] Last Admin: 10/29/18 08:26 Dose: 20 mg Enoxaparin Sodium (Lovenox) 40 mg SC DAILY@0600 [facility] Last Admin: 10/29/18 05:51 Dose: 40 mg Hydrocortisone (Hytone) 1 applic TOPICAL BID PRN PRN; Protocol PRN Reason: RASH/TOPICAL IRRITATION Last Admin: 10/23/18 07:59 Dose: 1 applicatio Levothyroxine Sodium (Synthroid) 175 mcg PO DAILY@0600 [facility] Last Admin: 10/29/18 05:52 Dose: 175 mcg Loratadine (Claritin) 10 mg PO DAILY [facility] Last Admin: 10/29/18 08:27 Dose: 10 mg Lorazepam (Ativan) 1 mg PO BID PRN PRN Reason: ANXIETY Last Admin: 10/17/18 10:44 Dose: 1 mg Magnesium Hydroxide (Milk Of Magnesia) 30 ml PO DAILY PRN PRN PRN Reason: Constipation Last Admin: 10/17/18 20:32 Dose: 30 ml Oxycodone HCl (Oxyir) 5 - 10 mg PO Q4H PRN PRN PRN Reason: PAIN Last Admin: 10/29/18 11:12 Dose: 10 mg Pantoprazole Sodium (Protonix) 20 mg PO DAILY@0800 [facility] Last Admin: 10/29/18 08:26 Dose: 20 mg Senna/Docusate Sodium (Senokot-S, Rosalba-Colace) 2 tablet PO BID [facility] Last Admin: 10/29/18 08:27 Dose: 2 tablet Tobramycin/Dexamethasone (Tobradex) 1 drop RIGHT EYE Q6 [facility] Stop: 10/29/18 12:01 Last Admin: 10/29/18 11:13 Dose: 1 drop Medical Necessity - Tobacco Use Smoking Status: Current every day smoker Assessment/Plan All Active Problems Greater tuberosity of humerus fracture (Acute) Acute pain of left shoulder due to trauma (Acute) Debility (Acute) Right shoulder pain (Acute) Admitted to the inpatient rehab unit with significant debility following fall with left shoulder pain. Imaging studies demonstrated nondisplaced fracture involving the greater tuberosity of the left humerus. 1. Physical debility; following fall with left shoulder pain. Imaging studies demonstrated nondisplaced fracture involving the greater tuberosity of the left humerus. Conservatively 2. Cerebral palsy patient is quite functional. 3. Depression with anxiety 4. Hypothyroidism-patient is on levothyroxine home dose continued 5. GERD on PPI 6. Obstructive sleep apnea patient is on CPAP at night 7. DVT prophylaxis SC Lovenox Code Visit Inpatient E&M: 16527 Subs Hosp L2
--- NOTE | 2018-10-29 11:58 | PN_ITS ---
Subjective: Admitted to the inpatient rehab unit with significant debility following fall with left shoulder pain. Imaging studies demonstrated nondisplaced fracture involving the greater tuberosity of the left humerus. Objective: GENERAL: cooperative HEENT: Atraumatic; moist oral mucosa EYES; Anicteric, Normal Conjunctiva NECK; supple, normal thyroid, no distended JVD. RESPIRATORY: Diminished to auscultation bilaterally, CARDIOVASCULAR: Regular S1 S2, no audible murmurs GI: soft, non-tender, normoactive bowel sounds, : No Renal angle tenderness; EXTREMITIES: No edema, no clubbing, no cyanosis. MUSCULOSKELETAL: Left upper extremity immobilized NEURO: Awake; no lateralizing signs. SKIN: No Rash PSYCH; Normal affect Vitals/I&O's: Vital Signs Temp Pulse Resp BP Pulse Ox 98.3 F 56 L 18 111/68 97 10/29/18 07:12 10/29/18 07:12 10/29/18 07:12 10/29/18 07:12 10/29/18 07:12 Oxygen Delivery Method Room Air Weight: 103.3 kg Body Mass Index (BMI) 38.0 Intake and Output for Last 24 Hours 10/27/18 10/28/18 10/29/18 23:59 23:59 23:59 Intake Total 720 / 720 440 / 440 Balance 720 / 720 440 / 440 Current Medications Bisacodyl (Dulcolax) 10 mg RECTAL .PRN X 1 PRN PRN Reason: Constipation Calcium Carbonate (Tums) 500 mg PO Q6H PRN PRN PRN Reason: INDIGESTION Citalopram Hydrobromide (Celexa) 20 mg PO DAILY [facility] Last Admin: 10/29/18 08:26 Dose: 20 mg Enoxaparin Sodium (Lovenox) 40 mg SC DAILY@0600 [facility] Last Admin: 10/29/18 05:51 Dose: 40 mg Hydrocortisone (Hytone) 1 applic TOPICAL BID PRN PRN; Protocol PRN Reason: RASH/TOPICAL IRRITATION Last Admin: 10/23/18 07:59 Dose: 1 applicatio Levothyroxine Sodium (Synthroid) 175 mcg PO DAILY@0600 [facility] Last Admin: 10/29/18 05:52 Dose: 175 mcg Loratadine (Claritin) 10 mg PO DAILY [facility] Last Admin: 10/29/18 08:27 Dose: 10 mg Lorazepam (Ativan) 1 mg PO BID PRN PRN Reason: ANXIETY Last Admin: 10/17/18 10:44 Dose: 1 mg Magnesium Hydroxide (Milk Of Magnesia) 30 ml PO DAILY PRN PRN PRN Reason: Constipation Last Admin: 10/17/18 20:32 Dose: 30 ml Oxycodone HCl (Oxyir) 5 - 10 mg PO Q4H PRN PRN PRN Reason: PAIN Last Admin: 10/29/18 11:12 Dose: 10 mg Pantoprazole Sodium (Protonix) 20 mg PO DAILY@0800 [facility] Last Admin: 10/29/18 08:26 Dose: 20 mg Senna/Docusate Sodium (Senokot-S, Rosalba-Colace) 2 tablet PO BID [facility] Last Admin: 10/29/18 08:27 Dose: 2 tablet Tobramycin/Dexamethasone (Tobradex) 1 drop RIGHT EYE Q6 [facility] Stop: 10/29/18 12:01 Last Admin: 10/29/18 11:13 Dose: 1 drop Medical Necessity - Tobacco Use Smoking Status: Current every day smoker Assessment/Plan All Active Problems Greater tuberosity of humerus fracture (Acute) Acute pain of left shoulder due to trauma (Acute) Debility (Acute) Right shoulder pain (Acute) Admitted to the inpatient rehab unit with significant debility following fall with left shoulder pain. Imaging studies demonstrated nondisplaced fracture involving the greater tuberosity of the left humerus. 1. Physical debility; following fall with left shoulder pain. Imaging studies demonstrated nondisplaced fracture involving the greater tuberosity of the left humerus. Conservatively 2. Cerebral palsy patient is quite functional. 3. Depression with anxiety 4. Hypothyroidism-patient is on levothyroxine home dose continued 5. GERD on PPI 6. Obstructive sleep apnea patient is on CPAP at night 7. DVT prophylaxis SC Lovenox Code Visit Inpatient E&M: 92567 Subs Hosp L2
--- NOTE | 2018-10-29 12:11 | CASEMGMT ---
Team meeting held today with pt present. Pt is receiving PT/OT and progressing with therapy. D/C date set for 11/01/18. Pt would like to [facility] with [facility]. KIZZY spoke with Audrey in TCU and they are able to accept pt on . Pt made aware and agreeable to this plan. Will continue with treatment plan at this time with d/c set for 11/01 to TCU. NYDIA Ordoñez
--- NOTE | 2018-10-29 18:38 | NURSING ---
Dr. Bagley here to see pt. Pt is to be NPO midnight on 10/30/18, and do not give Lovenox morning of 10/31/18.
[2018-10-29 21:27] VITALS: BP 115/67; PULSE 78; RESP 18; TEMP 36.8; O2SAT 94
[2018-10-29 22:00] VITALS: PULSE 78
[2018-10-30 03:26] LABS: Bedside Glucose 98 mg/dL (70-110)
[2018-10-30] MEDS: LORazepam 1 MG Tablet PO (03:26)
[2018-10-30] MEDS: oxyCODONE 5 MG Tablet PO ×5 (03:26→22:43)
--- NOTE | 2018-10-30 03:56 | NURSING ---
Pt c/o dizziness/light headedness while staff in room to assist with toileting needs. RN checked blood sugar d/t pt anxiety level. BS was 98. Pt given cookies and milk. Within 10 minutes, pt used call light to alert staff that he was feeling anxiety and wanted his Ativan PRN. RN provided this med. Pt proceeded to turn on phone and state he'd watch something on his phone to distract him of his anxiety till medicine kicks in. RN advised pt of the detriment of screen time has on productive sleep and that IR has can doffer schedules.
[2018-10-30] MEDS: Enoxaparin 40 MG/0.4 ML Syringe SC (06:11)
[2018-10-30] MEDS: Levothyroxine 175 MCG Tablet PO (06:12)
--- NOTE | 2018-10-30 06:24 | NURSING ---
Pt didn't sleep soundly and when asked by this RN about hygiene needs Pt stated he'd prefer to get ready after breakfast. Pt continues to put off hygiene by refusing and stating he will do it later. Later comes around and there is another excuse for postponement but staff encourages hygiene to no avail.
[2018-10-30 07:26] VITALS: BP 98/57; PULSE 75; RESP 18; TEMP 36.6; O2SAT 95
[2018-10-30] MEDS: Pantoprazole Sodium 20 MG Tablet PO (09:14)
[2018-10-30] MEDS: Citalopram 20 MG Tablet PO (09:15)
[2018-10-30] MEDS: Loratadine 10 MG Tablet PO (09:15)
[2018-10-30] MEDS: Senna/Docusate Sodium 1 Tablet 2 TABLET PO ×2 (09:15→22:39)
--- NOTE | 2018-10-30 10:45 | RAD_ITS ---
STUDY: X-RAY - LEFT SHOULDER REASON FOR EXAM: Male, 53 years old. Trauma one and a half months ago TECHNIQUE: 3 view(s) of the shoulder. COMPARISON: Prior study of 10/13/2018 FINDINGS: Normal glenohumeral articulation. Normal acromioclavicular joint. Normal acromion. There are findings suspicious for nondisplaced fracture of the humeral greater tuberosity. The soft tissue structures are unremarkable. Normal visualized pulmonary apex. RAD/Shoulder min 2 Views IMPRESSION: Findings suspicious for nondisplaced fracture of the humeral greater tuberosity. If clinically indicated, CT of the left shoulder joint would be helpful for further evaluation. Electronically Signed: Yaya Smith MD at 23:27 EDT , Service support ,
--- NOTE | 2018-10-30 13:48 | PCM.PN.ORT ---
Subjective: Doing okay complain of pain - Physical Exam Extremities: - - No sign of infection neurovascularly intact Vital Signs Temp Pulse Resp BP Pulse Ox 97.8 F 75 18 98/57 L 95 10/30/18 07:26 10/30/18 07:26 10/30/18 07:26 10/30/18 07:26 10/30/18 07:26 Oxygen Delivery Method Room Air Weight: 227 lb 11.8 oz Body Mass Index (BMI) 38.0 Intake and Output for Last 24 Hours 10/28/18 10/29/18 10/30/18 23:59 23:59 23:59 Intake Total 680 / 680 240 / 240 Balance 680 / 680 240 / 240 POC Glucose 10/30/18 03:03 POC Glucose 98 Medical Necessity - Tobacco Use Smoking Status: Current every day smoker Assessment/Plan All Active Problems Greater tuberosity of humerus fracture (Acute) Acute pain of left shoulder due to trauma (Acute) Debility (Acute) Right shoulder pain (Acute) Okay to DC sling Begin active assist and transition to active range of motion Nonweightbearing no resistance for 3 weeks then progress as tolerated No Further orthopedic intervention at this time
--- NOTE | 2018-10-30 18:07 | NURSING ---
Patient acted like he was going to fall as he was coming out of bathroom and this nurse positioned her arms around patient's trunk from the backside of him to help him position himself upright and patient regained balance just fine. Contact guard assist per normal on his return back to bed. Patient reported that every now and then I get a type of nerve pain to my right hip and that is what happened. PRN ICE pack applied to right hip to help.
[2018-10-30 21:50] VITALS: BP 111/58; PULSE 62; RESP 19; TEMP 36.4; O2SAT 97
[2018-10-30 21:53] VITALS: PULSE 65; RESP 18
--- NOTE | 2018-10-30 23:01 | NURSING ---
22:00 Pt refused MOM at this time and said he would wait till a.m. This RN will propose MOM with a.m. meds. Pt denies discomfort and is passing gas with BS/WNL.
[2018-10-31] MEDS: oxyCODONE 5 MG Tablet PO ×3 (06:25→22:07)
[2018-10-31] MEDS: Levothyroxine 175 MCG Tablet PO (06:26)
[2018-10-31] MEDS: Enoxaparin 40 MG/0.4 ML Syringe SC (06:27)
[2018-10-31 07:06] VITALS: BP 105/57; PULSE 60; RESP 16; TEMP 36.4; O2SAT 94
--- NOTE | 2018-10-31 07:35 | PCM.PN.HOSP ---
Subjective: Patient seen participating in physical therapy Objective: GENERAL: cooperative HEENT: Atraumatic; moist oral mucosa EYES; Anicteric, Normal Conjunctiva NECK; supple, normal thyroid, no distended JVD. RESPIRATORY: Diminished to auscultation bilaterally, CARDIOVASCULAR: Regular S1 S2, no audible murmurs GI: soft, non-tender, normoactive bowel sounds, : No Renal angle tenderness; EXTREMITIES: No edema, no clubbing, no cyanosis. MUSCULOSKELETAL: Left upper extremity immobilized NEURO: Awake; no lateralizing signs. SKIN: No Rash PSYCH; Normal affect Vitals/I&O's: Vital Signs Temp Pulse Resp BP Pulse Ox 97.5 F L 60 16 105/57 L 94 10/31/18 07:06 10/31/18 07:06 10/31/18 07:06 10/31/18 07:06 10/31/18 07:06 Oxygen Delivery Method Room Air Weight: 104 kg Body Mass Index (BMI) 38.0 Intake and Output for Last 24 Hours 10/29/18 10/30/18 10/31/18 23:59 23:59 23:59 Intake Total 680 / 680 240 / 240 Balance 680 / 680 240 / 240 Current Medications Bisacodyl (Dulcolax) 10 mg RECTAL .PRN X 1 PRN PRN Reason: Constipation Calcium Carbonate (Tums) 500 mg PO Q6H PRN PRN PRN Reason: INDIGESTION Citalopram Hydrobromide (Celexa) 20 mg PO DAILY [facility] Last Admin: 10/30/18 09:15 Dose: 20 mg Enoxaparin Sodium (Lovenox) 40 mg SC DAILY@0600 [facility] Last Admin: 10/31/18 06:27 Dose: 40 mg Hydrocortisone (Hytone) 1 applic TOPICAL BID PRN PRN; Protocol PRN Reason: RASH/TOPICAL IRRITATION Last Admin: 10/23/18 07:59 Dose: 1 applicatio Levothyroxine Sodium (Synthroid) 175 mcg PO DAILY@0600 [facility] Last Admin: 10/31/18 06:26 Dose: 175 mcg Loratadine (Claritin) 10 mg PO DAILY [facility] Last Admin: 10/30/18 09:15 Dose: 10 mg Lorazepam (Ativan) 1 mg PO BID PRN PRN Reason: ANXIETY Last Admin: 10/30/18 03:26 Dose: 1 mg Magnesium Hydroxide (Milk Of Magnesia) 30 ml PO DAILY PRN PRN PRN Reason: Constipation Last Admin: 10/17/18 20:32 Dose: 30 ml Oxycodone HCl (Oxyir) 5 - 10 mg PO Q4H PRN PRN PRN Reason: PAIN Last Admin: 10/31/18 06:25 Dose: 10 mg Pantoprazole Sodium (Protonix) 20 mg PO DAILY@0800 [facility] Last Admin: 10/30/18 09:14 Dose: 20 mg Senna/Docusate Sodium (Senokot-S, Rosalba-Colace) 2 tablet PO BID [facility] Last Admin: 10/30/18 22:39 Dose: 2 tablet Medical Necessity - Tobacco Use Smoking Status: Current every day smoker Assessment/Plan All Active Problems Greater tuberosity of humerus fracture (Acute) Acute pain of left shoulder due to trauma (Acute) Debility (Acute) Right shoulder pain (Acute) Admitted to the inpatient rehab unit with significant debility following fall with left shoulder pain. Imaging studies demonstrated nondisplaced fracture involving the greater tuberosity of the left humerus. 1. Physical debility; following fall with left shoulder pain. Imaging studies demonstrated nondisplaced fracture involving the greater tuberosity of the left humerus: Managed conservatively. 2. Cerebral palsy patient is quite functional. 3. Depression with anxiety 4. Hypothyroidism-patient is on levothyroxine home dose continued 5. GERD on PPI 6. Obstructive sleep apnea patient is on CPAP at night 7. DVT prophylaxis SC Yanethnox Code Visit Inpatient E&M: [id number] [facility] L[facility]
[2018-10-31] MEDS: Loratadine 10 MG Tablet PO (07:51)
[2018-10-31] MEDS: Pantoprazole Sodium 20 MG Tablet PO (07:51)
[2018-10-31] MEDS: Citalopram 20 MG Tablet PO (07:51)
[2018-10-31] MEDS: Senna/Docusate Sodium 1 Tablet 2 TABLET PO ×2 (07:51→21:55)
[2018-10-31] MEDS: LORazepam 1 MG Tablet PO (13:53)
--- NOTE | 2018-10-31 15:45 | CHAPLAIN ---
Type of Pastoral Visit ___ Initial Visit _x__ Follow-up Visit ___ On-call Visit ___ General Patient Visit ___ Spiritual Assessment ___ Family Conference ___ Bereavement ___ Rapid Response ___ Code Blue ___ Other (describe below) Pastoral Care Referral From _x__ Patient ___ Family ___ Nurse ___ Physician ___ Sand Bobber ___ Process Safety Specialist ___ Other (describe below) Sacrament/Intervention _x__ Active listening ___ Anointing ___ Zoroastrian ___ Bereavement ___ Communion ___ Amarilys exploration ___ _x__ Life review _x__ Prayer ___ Reconciliation ___ Sacrament of Sick _x__ Supportive presence ___ Wedding ___ Other (describe below) Pastoral Comments
[2018-10-31 21:48] VITALS: BP 110/64; PULSE 62; RESP 17; TEMP 36.4; O2SAT 96
[2018-10-31 22:00] VITALS: PULSE 69; RESP 17
[2018-11-01] MEDS: Enoxaparin 40 MG/0.4 ML Syringe SC (06:09)
[2018-11-01] MEDS: Levothyroxine 175 MCG Tablet PO (06:09)
[2018-11-01 06:57] VITALS: BP 112/58; PULSE 70; RESP 18; TEMP 36.3; O2SAT 95
[2018-11-01] MEDS: Senna/Docusate Sodium 1 Tablet 2 TABLET PO ×2 (08:38→21:12)
[2018-11-01] MEDS: oxyCODONE 5 MG Tablet PO ×3 (08:38→21:20)
[2018-11-01] MEDS: Pantoprazole Sodium 20 MG Tablet PO (08:38)
[2018-11-01] MEDS: Citalopram 20 MG Tablet PO (08:38)
[2018-11-01] MEDS: Loratadine 10 MG Tablet PO (08:38)
--- NOTE | 2018-11-01 14:08 | PCM.PN.NEU ---
- Physical Exam General: Alert HEENT: Normocephalic Neck: Supple Lungs: Normal air movement Cardiovascular: Normal S1, Normal S2 Abdomen: Bowel Sounds Present Extremities: No cyanosis Neurological: - - Cranial nerves II-XII grossly intact, Deep Tendon Reflexes 2+/4 and Symmetrical, Neuro grossly intact, Motor Exam 5/5 strength throughout, Sensory exam intact to light touch and pain, Coordination normal, - - complaints of spasticity in the legs secondary to cerebral palsy Psych/Mental Status: Normal Affect Vital Signs Temp Pulse Resp BP Pulse Ox 97.4 F L 70 18 112/58 L 95 11/01/18 06:57 11/01/18 06:57 11/01/18 06:57 11/01/18 06:57 11/01/18 06:57 Oxygen Delivery Method Room Air Weight: 104 kg Body Mass Index (BMI) 38.0 Intake and Output for Last 24 Hours 10/30/18 10/31/18 11/01/18 23:59 23:59 23:59 Intake Total 240 / 240 720 / 720 Balance 240 / 240 720 / 720 Medical Necessity - Tobacco Use Smoking Status: Current every day smoker Assessment/Plan All Active Problems Greater tuberosity of humerus fracture (Acute) Acute pain of left shoulder due to trauma (Acute) Debility (Acute) Right shoulder pain (Acute) The patient is a 53 year old M with PMH of hypothyroidism, anxiety/depression, spinal stenosis, JODEE on CPAP, cerebral palsy, GERD GERD, admitted to [facility] on 10/16/2018 with debility status post left shoulder pain, found to have nondisplaced fracture of the greater tuberosity, for greater than 3 hours therapy daily with a goal of returning back home at or near his prior level of functional independence. Per patient he had a fall about a month ago and since then he has been having progressively worsening excruciating left shoulder pain. During the inpatient stay patient had an MRI of the shoulder done which was reported to show supraspinatus tendinosis without demonstrated rotator cuff tear, nondisplaced fracture of the greater tuberosity, acromioclavicular arthrosis and mild subacromial/subdeltoid bursitis. Patient was evaluated by Dr. Barillas who recommended sling for 2 weeks with no active shoulder motion, passive range of motion by physical therapy, encourage elbow range of motion and pendulum exercises to the shoulder multiple times a day, and follow-up in 2 weeks for further evaluation. At present patient continues to have left shoulder pain, denies any focal motor weakness, sensory loss, headache, dizziness, visual disturbances or speech disturbances. Per patient he lives with his son who will be moving out soon, as an apartment building, has 5 steps to get into the house, does drive, has been using walker since around last November 2017. Per patient he has chronic low back pain and had seen Dr. Seals in the past for back injections. [] Plan ?PT for gait stability ?OT for ADLs ?Analgesics as needed ?Bowel protocol ?Labs reviewed?LFTs altered. AST/ALT?. Will defer to the hospitalist for further evaluation and recommendations. Check repeat AST/ALT. ?Hypothyroidism?on levothyroxine ?Anxiety/depression?on citalopram ?Acute left shoulder pain secondary to nondisplaced fracture of the greater tuberosity?further management recommendation per orthopedics Dr. Barillas, per orthopedic recommendation sling for 2 weeks with no active shoulder motion and follow-up in 2 weeks for further evaluation. Per orthopedic documentation for 10/30/2018 okay to DC sling, begin active assist in transition to active range of motion, nonweightbearing no resistance for 3 weeks then progress as tolerated and no further orthopedic intervention needed at this time ?History of cerebral palsy ?Chronic low back pain?pain management consult ?JODEE?on CPAP ?Fall precautions ?GI/DVT prophylaxis?pantoprazole/enoxaparin ?Hospitalist consult to Dr. Brown ?Further medical management per hospitalist recommendation ?Follow-up with PCP, pain management and orthopedics on discharge.
--- NOTE | 2018-11-01 15:52 | PCM.TXEXTCAR ---
- Diet 10/16/18 17:39 Diet: Regular Diet - Therapies Weight Bearing: Non weight bearing - Problem/Diagnosis (1) Cerebral palsy Status: Chronic Current Visit: Yes (2) Greater tuberosity of humerus fracture Status: Acute Current Visit: Yes (3) GERD (gastroesophageal reflux disease) Status: Chronic Current Visit: No (4) Obstructive sleep apnea Status: Chronic Current Visit: No (5) Acute pain of left shoulder due to trauma Status: Acute Current Visit: Yes (6) Debility Status: Acute Current Visit: Yes (7) Right shoulder pain Status: Acute Current Visit: No (8) Multilevel spinal canal stenosis Status: Chronic Current Visit: No (9) Intractable low back pain Status: Chronic Current Visit: No (10) Hypothyroidism Status: Chronic Current Visit: No (11) Anxiety Status: Chronic Current Visit: No (12) Depression Status: Chronic Current Visit: No - Allergies/Procedures Done in Hospital Allergies/Adverse Reactions: Allergies No Known Allergies Allergy (Verified 10/13/18 21:20) - Type of Care/Length of Stay Estimated LOS: More Than 30 Days Type of Care Needed: Skilled Rehab Potential: Fair Prognosis: Fair - Additional Orders/Day of Discharge Day of Discharge: 11/02/18 - Follow Up Care Primary Care Physician: Sai Cobian MD [Primary Care Provider] - When: Follow up with Dr. Barillas orthopedics in 1-2 weeks When: Follow up with Dr. Seals pain management in 1-2 weeks
--- NOTE | 2018-11-01 15:58 | DS.PCM_ITS ---
Rehab Discharge Summary DATE OF ADMISSION: 10/16/18 DATE OF DISCHARGE: 11/02/18 - Rehab Diagnosis Debility s/p left shoulder pain, found to have nondisplaced fracture of the greater tuberosity Patient Problems: Active and Suspected Problems Greater tuberosity of humerus fracture (Acute) Acute pain of left shoulder due to trauma (Acute) Debility (Acute) Subjective: No issues overnight. Care discussed with the nursing staff. Patient continues to complain of shoulder pain. Is on analgesics. Patient is being transferred to TCU today. Further management per pain management/TCU. - Physical Exam General: Alert HEENT: Normocephalic Neck: Supple Lungs: Normal air movement Cardiovascular: Normal S1, Normal S2 Abdomen: Bowel Sounds Present Extremities: No cyanosis Neurological: - - Cranial nerves II-XII grossly intact, Deep Tendon Reflexes 2+/4 and Symmetrical, Neuro grossly intact, Motor Exam 5/5 strength throughout, Sensory exam intact to light touch and pain, Coordination normal, - - complaints of spasticity in the legs secondary to cerebral palsy Psych/Mental Status: Normal Affect Vital Signs Temp Pulse Resp BP Pulse Ox 97.4 F L 70 18 112/58 L 95 11/01/18 06:57 11/01/18 06:57 11/01/18 06:57 11/01/18 06:57 11/01/18 06:57 Oxygen Delivery Method Room Air Weight: 104 kg Body Mass Index (BMI) 38.0 Intake and Output for Last 24 Hours 10/30/18 10/31/18 11/01/18 23:59 23:59 23:59 Intake Total 240 / 240 720 / 720 Balance 240 / 240 720 / 720 Laboratory Tests Past 24 Hrs 11/01/18 15:40 AST Pending ALT Pending Discharge Diet: - - Regular Diet Discharge Activity: May Not Drive Weight Bearing Status: No weight bearing Call your doctor if your incision/area has: Continuous Slow Oozing, Sudden Increased Bleeding, Increased Pain/ Swelling, Increased Redness, Foul Smelling Discharge, Swelling at the incision site Call your doctor if you observe: Fever of 101 or Higher, Coldness, Increased Pain, Numbness or Tingling, Change in Color, Inability to urinate, Inability to have a bowel movement, Using more than one pad per hour, Shortness of breath, Dizziness, Fainting spells, Swelling in the ankles, Chest pain, Prolonged hiccoughing, Increased palpitations (irregular heartbeat), Calf discomfort, Uncontrolled pain Home Medications: Medications to take at Discharge Levothyroxine [Synthroid] 175 mcg PO DAILY 05/21/16 Loratadine [Claritin] 10 mg PO DAILY 10/16/18 Oxycodone [Oxyir] 5 mg PO Q6H PRN PRN #30 tablet 10/16/18 Pantoprazole Sodium [Protonix] 20 mg PO DAILY@0800 10/16/18 Calcium Carbonate [Tums] 500 mg PO Q6H PRN PRN tablet 11/01/18 Citalopram [Celexa] 20 mg PO DAILY tablet 11/01/18 Primary Care Physician: Sai Cobian MD [Primary Care Provider] - When: Follow up with Dr. Barillas orthopedics in 1-2 weeks When: Follow up with Dr. Seals pain management in 1-2 weeks Rehab Course The patient is a 53 year old M with PMH of hypothyroidism, anxiety/depression, spinal stenosis, JODEE on CPAP, cerebral palsy, GERD GERD, admitted to [facility] on 10/16/2018 with debility status post left shoulder pain, found to have nondisplaced fracture of the greater tuberosity, for greater than 3 hours therapy daily with a goal of returning back home at or near his prior level of functional independence. Per patient he had a fall about a month ago and since then he has been having progressively worsening excruciating left shoulder pain. During the inpatient stay patient had an MRI of the shoulder done which was reported to show supraspinatus tendinosis without demonstrated rotator cuff tear, nondisplaced fracture of the greater tuberosity, acromioclavicular arthrosis and mild subacromial/subdeltoid bursitis. Patient was evaluated by Dr. Barillas who recommended sling for 2 weeks with no active shoulder motion, passive range of motion by physical therapy, encourage elbow range of motion and pendulum exercises to the shoulder multiple times a day, and follow-up in 2 weeks for further evaluation. Per orthopedic documentation for 10/30/2018 okay to DC sling, begin active assist in transition to active range of motion, nonweightbearing no resistance for 3 weeks then progress as tolerated and no further orthopedic intervention needed at this time. At present patient continues to have left shoulder pain, denies any focal motor weakness, sensory loss, headache, dizziness, visual disturbances or speech disturbances. Per patient he lives with his son who will be moving out soon, at an apartment building, has 5 steps to get into the house, does drive, has been using walker since around last November 2017. Per patient he has chronic low back pain and had seen Dr. Seals in the past for back injections. Patient continued to have intermittent pain in the left shoulder was on analgesics for the same and orthopedic recommendation followed. The patient tolerated therapies well. Had further uncomplicated rehab course. Follow-up with PCP, pain management and orthopedics on discharge. Meaningful Use Info Meaningful Use Diagnoses (Choose all that apply): None applicable
[2018-11-01 16:18] LABS: AST(SGOT) 36 U/L (15-37); Alanine Aminotransfer ALT/SGPT 75 U/L (16-61)
[2018-11-01] MEDS: LORazepam 1 MG Tablet PO (18:29)
[2018-11-01 19:29] VITALS: BP 131/70; PULSE 70; RESP 18; TEMP 36.6; O2SAT 96
[2018-11-02] MEDS: Levothyroxine 175 MCG Tablet PO (05:44)
[2018-11-02] MEDS: Enoxaparin 40 MG/0.4 ML Syringe SC (05:44)
[2018-11-02 07:00] VITALS: BP 115/53; PULSE 64; RESP 12; TEMP 36.8; O2SAT 93
[2018-11-02] MEDS: oxyCODONE 5 MG Tablet PO (09:20)
[2018-11-02] MEDS: Pantoprazole Sodium 20 MG Tablet PO (09:20)
[2018-11-02] MEDS: Senna/Docusate Sodium 1 Tablet 2 TABLET PO (09:20)
[2018-11-02] MEDS: Loratadine 10 MG Tablet PO (09:20)
[2018-11-02] MEDS: Citalopram 20 MG Tablet PO (09:20)
[2018-11-02 13:01] VITALS: BP 115/53; PULSE 64; RESP 12; TEMP 36.8; O2SAT 93
--- NOTE | 2018-11-02 13:24 | CASEMGMT ---
Social Work Discharge planned for today. SW met with pt in room and pt is agreeable to discharge to TCU for continued therapy. D/C Orders given to TCU. No further SW needs. NYDIA Ordoñez
--- NOTE | 2018-11-02 14:19 | NURSING ---
Called report to [facility]
== END 2018-11-02 14:23 | disposition skilled nursing facility (03) | DRG 561 ==
PROVIDERS: Internal Medicine; Admitting Provider Psychiatry & Neurology Neurology; Family Provider Family Medicine; PCP Family Medicine; Visit Provider Internal Medicine
DX: S42.255D Nondisplaced fracture of greater tuberosity of left humerus, subsequent encounter for fracture with routine healing (principal); W19.XXXD Unspecified fall, subsequent encounter; G80.9 Cerebral palsy, unspecified; K21.9 Gastro-esophageal reflux disease without esophagitis; G47.33 Obstructive sleep apnea (adult) (pediatric); E03.9 Hypothyroidism, unspecified; F41.9 Anxiety disorder, unspecified; F32.9 Major depressive disorder, single episode, unspecified; G89.29 Other chronic pain; H20.10 Chronic iridocyclitis, unspecified eye; M48.00 Spinal stenosis, site unspecified
CPT/HCPCS: 36415; 73030; 80053; 82962; 84450; 84460; 85027; 97110; 97116; 97140; 97162; 97166; 97530; 97535; 97802; 99406

== ENCOUNTER 2018-11-02 14:40 | Inpatient (IN) | payer MEDICARE, MEDICAID, SELFPAY ==
[2018-11-02 14:59] VITALS: BP 117/61; PULSE 71; RESP 18; TEMP 36.4; O2SAT 98
--- NOTE | 2018-11-02 15:36 | PCM.HP.STD ---
Problem List (1) Left shoulder pain Status: Acute (2) Shoulder fracture, left Status: Acute (3) Left humeral fracture Status: Acute (4) Cerebral palsy Status: Chronic (5) GERD (gastroesophageal reflux disease) Status: Chronic (6) Obstructive sleep apnea Status: Chronic (7) Debility Status: Acute (8) Multilevel spinal canal stenosis Status: Chronic (9) Hypothyroidism Status: Chronic (10) Anxiety Status: Chronic (11) Depression Status: Chronic History of Present Illness Date of Admission: 11/02/18 Chief Complaint: Here for rehabilitation, strengthening, prior to discharge home with family. The patient is a 53 year old Male with below past medical history here with following: Fell 1 month ago, Left shoulder pain worsening, left shoulder fracture. 10/16/2018 Admitted to Rehabilitation Unit for debility. MRI left shoulder showed supraspinatus tendinosis. Non-displaced fracture greater tuberosity, acromioclavicular arthrosis. Mild subacromial/subdeltoid bursitis. Dr. Barillas consulted, recommended sling, range of motion exercise, pendulum exercises. 11/02/2018 Admit to TCU with debility, here for rehabilitation, strengthening, prior to discharge home with family. Past Medical History Past Medical History (Chronic Problems): Chronic Problems Cerebral palsy (Chronic) GERD (gastroesophageal reflux disease) (Chronic) Obstructive sleep apnea (Chronic) Multilevel spinal canal stenosis (Chronic) Intractable low back pain (Chronic) Hypothyroidism (Chronic) Anxiety (Chronic) Depression (Chronic) Allergies No Known Allergies Allergy (Verified 10/13/18 21:20) Home Medications: Ambulatory Orders Medication Instructions Recorded Levothyroxine [Synthroid] 175 mcg PO DAILY 05/21/16 Loratadine [Claritin] 10 mg PO DAILY 10/16/18 Oxycodone [Oxyir] 5 mg PO Q6H PRN PRN #30 tablet 10/16/18 Pantoprazole Sodium [Protonix] 20 mg PO DAILY@0800 10/16/18 Calcium Carbonate [Tums] 500 mg PO Q6H PRN PRN tablet 11/01/18 Citalopram [Celexa] 20 mg PO DAILY 11/02/18 Surgical History: tonsillectomy, - - Bilateral hand surgery for trigger finger. Psychiatric History: Anxiety, Depression Lives: With Family Smoking Status: Current every day smoker Tobacco Use: Cigarettes Alcohol: Occasional Drugs: None - *Family History Maternal History Items: Diabetes, - Paternal History Items: - - Patient was adopted and he does not know his paternal medical history. Review of Systems Constitutional: Denies: Chills, Fever, Weight Change HEENT: Denies: Head Aches, Sinus Congestion, Sinus Drainage Cardiovascular: Denies: Chest Pain, Palpitations Respiratory: Denies: Cough, Shortness of breath at rest, Sputum production Gastrointestinal: Denies: Abdominal Pain, Nausea, Vomiting Genitourinary: Denies: Dysuria Musculoskeletal: Denies: Joint Pain, Joint Tenderness Skin: Denies: Rash, Wounds Neurological: Denies: Numbness, Tingling, Focal weakness Psychiatric: Denies: Anxiety, Depression, Homicidal Ideations, Suicidal Ideations Hematologic/ Lymphatic: Denies: Easy Bruising, Easy Bleeding VTE Information - Inpt Only VTE Present on Admission: No VTE Mechan Device Prophylaxis: Knee High KOKO Hose VTE Pharm Prophylaxis ordered?: Yes Patient Problems: Active and Suspected Problems Left shoulder pain (Acute) Shoulder fracture, left (Acute) Left humeral fracture (Acute) - Physical Exam General: Alert, Oriented x3, Cooperative HEENT: Atraumatic, PERRLA, EOMI, Normocephalic Neck: Supple, No JVD, Negative Carotid Bruits Lungs: Clear to auscultation, Normal air movement Cardiovascular: Regular rate, No murmurs Abdomen: Bowel Sounds Present, Soft, Non Tender Extremities: No edema, Capillary Refill Less than 3 Seconds Skin: No rashes, No breakdown Musculoskeletal: No Tenderness to Palpation of Joints or Extremities Neurological: Cranial nerves II-XII grossly intact Psych/Mental Status: Normal Affect, Appropriate Vital Signs Temp Pulse Resp BP Pulse Ox 97.5 F L 71 18 117/61 98 11/02/18 14:59 11/02/18 14:59 11/02/18 14:59 11/02/18 14:59 11/02/18 14:59 Oxygen Delivery Method Room Air Body Mass Index (BMI) 38.0 Assessment/Plan All Active Problems Left shoulder pain (Acute) Shoulder fracture, left (Acute) Left humeral fracture (Acute) Greater tuberosity of humerus fracture (Acute) Acute pain of left shoulder due to trauma (Acute) Debility (Acute) Right shoulder pain (Acute) 53 year old male with below past medical history admitted to for debility, secondary to left humeral fracture, left shoulder pain, admitted to TCU with debility, here for rehabilitation, strengthening, prior to discharge home with family. Debility - PT/OT. Pain - Tylenol 1000MG Q6H PRN mild pain, Oxycodone 10MG Q4H PRN severe pain. Bowel - Miralax 17GM daily, Senna/colace 1 tablet twice daily, Dulcolax 10MG po daily PRN. Pneumonia vaccination - He declined pneumonia vaccination DVT prophylaxis - Lovenox 40MG SC daily. Indigestion - calcium carbonate 500MG Q6H PRN. Depression - Citalopram 20MG daily. Hypothyroidism - Levothyroxine 175MCG daily. Allergic Rhinitis - Loratadine 10MG daily. GERD - Pantoprazole 20MG daily. Low Back Pain - Consult Dr. Bagley to see if epidural steroid injections would be helpful.
--- NOTE | 2018-11-02 15:42 | HP.PCM_ITS ---
Problem List (1) Left shoulder pain Status: Acute (2) Shoulder fracture, left Status: Acute (3) Left humeral fracture Status: Acute (4) Cerebral palsy Status: Chronic (5) GERD (gastroesophageal reflux disease) Status: Chronic (6) Obstructive sleep apnea Status: Chronic (7) Debility Status: Acute (8) Multilevel spinal canal stenosis Status: Chronic (9) Hypothyroidism Status: Chronic (10) Anxiety Status: Chronic (11) Depression Status: Chronic History of Present Illness Date of Admission: 11/02/18 Chief Complaint: Here for rehabilitation, strengthening, prior to discharge home with family. The patient is a 53 year old Male with below past medical history here with following: Fell 1 month ago, Left shoulder pain worsening, left shoulder fracture. 10/16/2018 Admitted to Rehabilitation Unit for debility. MRI left shoulder showed supraspinatus tendinosis. Non-displaced fracture greater tuberosity, acromioclavicular arthrosis. Mild subacromial/subdeltoid bursitis. Dr. Barillas consulted, recommended sling, range of motion exercise, pendulum exercises. 11/02/2018 Admit to TCU with debility, here for rehabilitation, strengthening, prior to discharge home with family. Past Medical History Past Medical History (Chronic Problems): Chronic Problems Cerebral palsy (Chronic) GERD (gastroesophageal reflux disease) (Chronic) Obstructive sleep apnea (Chronic) Multilevel spinal canal stenosis (Chronic) Intractable low back pain (Chronic) Hypothyroidism (Chronic) Anxiety (Chronic) Depression (Chronic) Allergies No Known Allergies Allergy (Verified 10/13/18 21:20) Home Medications: Ambulatory Orders Medication Instructions Recorded Levothyroxine [Synthroid] 175 mcg PO DAILY 05/21/16 Loratadine [Claritin] 10 mg PO DAILY 10/16/18 Oxycodone [Oxyir] 5 mg PO Q6H PRN PRN #30 tablet 10/16/18 Pantoprazole Sodium [Protonix] 20 mg PO DAILY@0800 10/16/18 Calcium Carbonate [Tums] 500 mg PO Q6H PRN PRN tablet 11/01/18 Citalopram [Celexa] 20 mg PO DAILY 11/02/18 Surgical History: tonsillectomy, - - Bilateral hand surgery for trigger finger. Psychiatric History: Anxiety, Depression Lives: With Family Smoking Status: Current every day smoker Tobacco Use: Cigarettes Alcohol: Occasional Drugs: None - *Family History Maternal History Items: Diabetes, - Paternal History Items: - - Patient was adopted and he does not know his paternal medical history. Review of Systems Constitutional: Denies: Chills, Fever, Weight Change HEENT: Denies: Head Aches, Sinus Congestion, Sinus Drainage Cardiovascular: Denies: Chest Pain, Palpitations Respiratory: Denies: Cough, Shortness of breath at rest, Sputum production Gastrointestinal: Denies: Abdominal Pain, Nausea, Vomiting Genitourinary: Denies: Dysuria Musculoskeletal: Denies: Joint Pain, Joint Tenderness Skin: Denies: Rash, Wounds Neurological: Denies: Numbness, Tingling, Focal weakness Psychiatric: Denies: Anxiety, Depression, Homicidal Ideations, Suicidal Ideations Hematologic/ Lymphatic: Denies: Easy Bruising, Easy Bleeding VTE Information - Inpt Only VTE Present on Admission: No VTE Mechan Device Prophylaxis: Knee High KOKO Hose VTE Pharm Prophylaxis ordered?: Yes Patient Problems: Active and Suspected Problems Left shoulder pain (Acute) Shoulder fracture, left (Acute) Left humeral fracture (Acute) - Physical Exam General: Alert, Oriented x3, Cooperative HEENT: Atraumatic, PERRLA, EOMI, Normocephalic Neck: Supple, No JVD, Negative Carotid Bruits Lungs: Clear to auscultation, Normal air movement Cardiovascular: Regular rate, No murmurs Abdomen: Bowel Sounds Present, Soft, Non Tender Extremities: No edema, Capillary Refill Less than 3 Seconds Skin: No rashes, No breakdown Musculoskeletal: No Tenderness to Palpation of Joints or Extremities Neurological: Cranial nerves II-XII grossly intact Psych/Mental Status: Normal Affect, Appropriate Vital Signs Temp Pulse Resp BP Pulse Ox 97.5 F L 71 18 117/61 98 11/02/18 14:59 11/02/18 14:59 11/02/18 14:59 11/02/18 14:59 11/02/18 14:59 Oxygen Delivery Method Room Air Body Mass Index (BMI) 38.0 Assessment/Plan All Active Problems Left shoulder pain (Acute) Shoulder fracture, left (Acute) Left humeral fracture (Acute) Greater tuberosity of humerus fracture (Acute) Acute pain of left shoulder due to trauma (Acute) Debility (Acute) Right shoulder pain (Acute) 53 year old male with below past medical history admitted to [facility] for debility, secondary to left humeral fracture, left shoulder pain, admitted to TCU with debility, here for rehabilitation, strengthening, prior to discharge home with family. * Debility - PT/OT. * Pain - Tylenol 1000MG Q6H PRN mild pain, Oxycodone 10MG Q4H PRN severe pain. * Bowel - Miralax 17GM daily, Senna/colace 1 tablet twice daily, Dulcolax 10MG po daily PRN. * Pneumonia vaccination - He declined pneumonia vaccination * DVT prophylaxis - Lovenox 40MG SC daily. * Indigestion - calcium carbonate 500MG Q6H PRN. * Depression - Citalopram 20MG daily. * Hypothyroidism - Levothyroxine 175MCG daily. * Allergic Rhinitis - Loratadine 10MG daily. * GERD - Pantoprazole 20MG daily. * Low Back Pain - Consult Dr. Bagley to see if epidural steroid injections would be helpful.
[2018-11-02 15:47] VITALS: BMI 37.9
[2018-11-02 15:57] VITALS: BMI 37.9
[2018-11-02] MEDS: oxyCODONE 5 MG Tablet 10 MG PO ×2 (16:24→21:18)
[2018-11-02] MEDS: Senna/Docusate Sodium 1 Tablet PO (18:36)
--- NOTE | 2018-11-02 23:56 | NURSING ---
Pt requesting Ativan. Had order when he was on Rehab. Dr. Carrion updated. New order entered.
[2018-11-03] MEDS: LORazepam 1 MG Tablet PO (00:41)
[2018-11-03] MEDS: oxyCODONE 5 MG Tablet 10 MG PO ×4 (02:07→19:33)
--- NOTE | 2018-11-03 02:10 | NURSING ---
Addendum entered by Blanka Quach 11/03/18 02:30: Pt also requesting to not be disturbed until after 0800 in the mornings for any care. Original Note: Pt called out requesting pain medications. Pt sitting in recliner playing video games. Pt rating pain 8/10 to back and aching. Pt not in any distress and playing with phone when this nurse was trying to ask about pain. Emotional support given and pt refused to try heat, ice or to lie down in bed. Pt stating those things to do not help. Pt resting in recliner with call light in reach.
[2018-11-03 06:49] LABS: Absolute Lymphocyte Count 1.94 X10^3/ul (0.83-4.51); Absolute Neutrophil Count 4.3 X10^3/uL (2.0-7.7); Basophil# 0.01 X10^3/uL; Basophil% 0.1 % (0-1); Eosinophil# 0.15 X10^3/uL; Eosinophils% 2.1 % (0-5); Hematocrit 42.3 % (40-54); Hemoglobin 14.2 g/dl (13.0-16.5); Lymphocyte # 1.94 X10^3/ul (4.0); Lymphocyte % 27.2 % (19-41); Mean Corp Hgb Conc 33.6 g/gl (32-36); Mean Corpuscular Hgb 30.8 pg (27.0-32.0); Mean Corpuscular Volume 91.8 fL (80-94); Mean Platelet Vol. 11.6 fl (6.2-12.0); Monocyte# 0.72 X10^3/uL; Monocyte% 10.1 % (0-10); Neutrophil # 4.27 X10^3/uL (2.7-7.7); Neutrophil % 60.1 % (47-70); Platelet Count 241 K/mm3 (150-450); RBC Distribution Width CV 12.1 % (11.6-14.6); RBC Distribution Width SD 40.1 fl (35.1-43.9); Red Blood Count 4.61 M/mm3 (4.6-6.2); White Blood Count 7.1 K/mm3 (4.4-11.0)
[2018-11-03 06:52] LABS: POSITIVE COUNT NO; POSITIVE DIFFERENTIAL NO; POSITIVE MORPHOLOGY NO
[2018-11-03 07:02] LABS: Anion Gap 4 (5-15); BUN 11 mg/dL (7-18); Calcium,Total 9.1 mg/dL (8.5-10.1); Chloride 103 mmol/L (98-107); EST Glomerular Filtration Rate 75 mL/min (>60); Est Glom Filt Rate - Afr Amer 91 mL/min (>60); Estimated Creatinine Clearance 69.11 ml/min; Glucose 97 mg/dL (74-106); Potassium 4.1 mmol/L (3.5-5.1); Sodium Level 138 mmol/L (136-145)
[2018-11-03] MEDS: Loratadine 10 MG Tablet PO (09:32)
[2018-11-03] MEDS: Levothyroxine 175 MCG Tablet PO (09:33)
[2018-11-03] MEDS: Enoxaparin 40 MG/0.4 ML Syringe SC (09:33)
[2018-11-03] MEDS: Pantoprazole Sodium 20 MG Tablet PO (09:33)
[2018-11-03] MEDS: Citalopram 20 MG Tablet PO (09:33)
[2018-11-03] MEDS: Senna/Docusate Sodium 1 Tablet 2 TABLET PO ×2 (09:33→17:08)
[2018-11-03] MEDS: Tuberculin,Purif.prot.deriv. 50 TU/ML Vial 5 ML ID (13:02)
[2018-11-03 16:00] VITALS: BP 122/63; PULSE 74; RESP 20; TEMP 36.7; O2SAT 94
[2018-11-04] MEDS: oxyCODONE 5 MG Tablet 10 MG PO ×4 (00:42→20:00)
[2018-11-04] MEDS: Levothyroxine 175 MCG Tablet PO (09:39)
[2018-11-04] MEDS: Pantoprazole Sodium 20 MG Tablet PO (09:39)
[2018-11-04] MEDS: Citalopram 20 MG Tablet PO (09:39)
[2018-11-04] MEDS: Senna/Docusate Sodium 1 Tablet 2 TABLET PO ×2 (09:39→16:47)
[2018-11-04] MEDS: Enoxaparin 40 MG/0.4 ML Syringe SC (09:40)
[2018-11-04 16:00] VITALS: BP 125/60; PULSE 55; RESP 20; TEMP 36.7; O2SAT 99
[2018-11-05] MEDS: LORazepam 1 MG Tablet PO (02:21)
[2018-11-05] MEDS: oxyCODONE 5 MG Tablet 10 MG PO ×4 (08:25→23:54)
[2018-11-05] MEDS: Enoxaparin 40 MG/0.4 ML Syringe SC (08:25)
[2018-11-05] MEDS: Levothyroxine 175 MCG Tablet PO (08:25)
[2018-11-05] MEDS: Senna/Docusate Sodium 1 Tablet 2 TABLET PO ×2 (08:25→16:51)
[2018-11-05] MEDS: Citalopram 20 MG Tablet PO (08:25)
[2018-11-05] MEDS: Pantoprazole Sodium 20 MG Tablet PO (08:25)
--- NOTE | 2018-11-05 11:37 | NURSING ---
Patient is already established with Dr. Bagley, appointment scheduled for 11/12/18 at 1030am.
--- NOTE | 2018-11-05 16:57 | CHAPLAIN ---
Type of Pastoral Visit ___ Initial Visit _x__ Follow-up Visit ___ On-call Visit ___ General Patient Visit ___ Spiritual Assessment ___ Family Conference ___ Bereavement ___ Rapid Response ___ Code Blue ___ Other (describe below) Pastoral Care Referral From _x__ Patient ___ Family ___ Nurse ___ Physician ___ Veterinary Toxicologist ___ Sales Estimator ___ Other (describe below) Sacrament/Intervention _x__ Active listening ___ Anointing ___ Scientology ___ Bereavement ___ Communion ___ Amarilys exploration ___ _x__ Life review _x__ Prayer ___ Reconciliation ___ Sacrament of Sick _x__ Supportive presence ___ Wedding ___ Other (describe below) Pastoral Comments patient called this acid etch operator and requested visit for spiritual support; pt is experiencing sadness and neglect from family and friends; pt also begins to talk about his own family of origin issues; pt asks acid etch operator to pray for him; at end of prayer the son of pt came into room with supplies for pt
[2018-11-06] MEDS: Citalopram 20 MG Tablet PO (08:08)
[2018-11-06] MEDS: Senna/Docusate Sodium 1 Tablet 2 TABLET PO ×2 (08:08→16:14)
[2018-11-06] MEDS: Pantoprazole Sodium 20 MG Tablet PO (08:08)
[2018-11-06] MEDS: Enoxaparin 40 MG/0.4 ML Syringe SC (08:08)
[2018-11-06] MEDS: oxyCODONE 5 MG Tablet 10 MG PO ×4 (08:08→22:16)
[2018-11-06] MEDS: Levothyroxine 175 MCG Tablet PO (08:08)
[2018-11-06] MEDS: Polyethylene Glycol 3350 17 GM PACKET PO (08:09)
[2018-11-06 15:39] VITALS: BP 111/78; PULSE 87; RESP 16; TEMP 36.8; O2SAT 92
[2018-11-07] MEDS: Enoxaparin 40 MG/0.4 ML Syringe SC (08:09)
[2018-11-07] MEDS: Citalopram 20 MG Tablet PO (08:09)
[2018-11-07] MEDS: Senna/Docusate Sodium 1 Tablet 2 TABLET PO ×2 (08:10→17:25)
[2018-11-07] MEDS: Pantoprazole Sodium 20 MG Tablet PO (08:10)
[2018-11-07] MEDS: Levothyroxine 175 MCG Tablet PO (08:10)
[2018-11-07] MEDS: Polyethylene Glycol 3350 17 GM PACKET PO (08:10)
[2018-11-07] MEDS: oxyCODONE 5 MG Tablet 10 MG PO ×3 (08:14→20:30)
[2018-11-07] MEDS: LORazepam 1 MG Tablet PO (08:49)
--- NOTE | 2018-11-07 10:58 | NURSING ---
Dr. Benz updated on c/o of rt hip pain, no new orders, monitor.
--- NOTE | 2018-11-07 11:38 | CASEMGMT ---
Plan of care meeting held today with pt present. Pt is receiving PT/OT and progressing with therapy. No d/c date set at this time. Pt plans to return to his home upon d/c. Pt son is currently living in the home but will be moving out in December. Will continue with treatment plan at this time. NYDIA Ordoñez
[2018-11-07] MEDS: Bisacodyl 5 MG Tablet 10 MG PO (13:18)
[2018-11-07 16:00] VITALS: BP 113/71; PULSE 62; RESP 18; TEMP 36.8; O2SAT 95
[2018-11-08] MEDS: Citalopram 20 MG Tablet PO (09:57)
[2018-11-08] MEDS: Pantoprazole Sodium 20 MG Tablet PO (09:57)
[2018-11-08] MEDS: Enoxaparin 40 MG/0.4 ML Syringe SC (09:57)
[2018-11-08] MEDS: Senna/Docusate Sodium 1 Tablet 2 TABLET PO ×2 (09:57→17:01)
[2018-11-08] MEDS: Levothyroxine 175 MCG Tablet PO (09:58)
[2018-11-08] MEDS: oxyCODONE 5 MG Tablet 10 MG PO ×3 (10:03→20:17)
--- NOTE | 2018-11-08 10:19 | MDS.RN ---
Pain interview for gonzales 11/09/18 completed.
--- NOTE | 2018-11-08 12:50 | CASEMGMT ---
Addendum entered by Roxanne Newell 11/08/18 15:03: Student Social Work MDS documentation reviewed. NYDIA Ordoñez Original Note: Brief interview for mental status (BIMS) and mood (PHQ-9) completed on this day. BIMS score . PHQ-9 score 10/17. Riaz Becerra social work student
--- NOTE | 2018-11-08 13:17 | PCM.PN.RX ---
<Germain Webster D - Last Filed: 11/08/18 13:17> Progress Note - Pharmacy Subjective: TCU Admission Objective: Allergies No Known Allergies Allergy (Verified 10/13/18 21:20) Current Medications Generic Name Dose Route Start Last Admin Trade Name Freq PRN Reason Stop Dose Admin Acetaminophen 1,000 mg 11/02/18 16:05 Tylenol PO Q6H PRN MILD PAIN (1-3/10) Bisacodyl 10 mg 11/02/18 16:06 11/07/18 13:18 Dulcolax PO 10 mg DAILY PRN Administration Constipation Calcium Carbonate 500 mg 11/02/18 15:20 Tums PO Q6H PRN PRN INDIGESTION Citalopram Hydrobromide 20 mg 11/03/18 08:00 11/08/18 09:57 Celexa PO 20 mg 0800 [facility] Administration Enoxaparin Sodium 40 mg 11/03/18 08:00 11/08/18 09:57 Lovenox SC 40 mg DAILY@0800 [facility] Administration Hydrocortisone 1 applic 11/03/18 12:30 Hytone TOPICAL BID PRN PRN ITCHING Protocol Levothyroxine Sodium 175 mcg 11/03/18 08:00 11/08/18 09:58 Synthroid PO 175 mcg 0800 [facility] Administration Loratadine 10 mg 11/03/18 08:00 11/08/18 08:09 Claritin PO Not Given 0800 [facility] Lorazepam 1 mg 11/02/18 23:55 11/07/18 08:49 Ativan PO 1 mg BID PRN PRN Administration ANXIETY Oxycodone HCl 10 mg 11/02/18 16:07 11/08/18 10:03 Oxyir PO 10 mg Q4H PRN PRN Administration SEVERE PAIN (6-10/10) Pantoprazole Sodium 20 mg 11/03/18 08:00 11/08/18 09:57 Protonix PO 20 mg DAILY@0800 [facility] Administration Polyethylene Glycol 17 gm 11/03/18 08:00 11/08/18 09:57 Miralax PO Not Given 0800 [facility] Senna/Docusate Sodium 2 tablet 11/03/18 08:00 11/08/18 09:57 Senokot-S, Rosalba-Colace PO 2 tablet 0800,1800 [facility] Administration Tuberculin PPD 5 tu 11/10/18 10:00 Tubersol, Aplisol, Ppd ID 11/10/18 10:01 X1 ONE Problem List Left shoulder pain (Acute) Shoulder fracture, left (Acute) Left humeral fracture (Acute) Vital Signs Temp Pulse Resp BP Pulse Ox 98.3 F 62 18 113/71 95 11/07/18 16:00 11/07/18 16:00 11/07/18 16:00 11/07/18 16:00 11/07/18 16:00 Oxygen Delivery Method Room Air Weight: 103.107 kg Body Mass Index (BMI) 37.9 Sodium 138 mmol/L (136-145) 11/03/18 06:36 Potassium 4.1 mmol/L (3.5-5.1) 11/03/18 06:36 Chloride 103 mmol/L (98-107) 11/03/18 06:36 Carbon Dioxide 31.0 mmol/L (21.0-32.0) 11/03/18 06:36 Anion Gap 4 (5-15) L 11/03/18 06:36 BUN 11 mg/dL (7-18) 11/03/18 06:36 Creatinine 1.10 mg/dL (0.70-1.30) 11/03/18 06:36 Est GFR (MDRD) Af Amer 91 mL/min (>60) 11/03/18 06:36 Est GFR (MDRD) Non-Af 75 mL/min (>60) 11/03/18 06:36 BUN/Creatinine Ratio 10.0 RATIO (10-20) 11/03/18 06:36 Glucose 97 mg/dL (74-106) 11/03/18 06:36 Assessment/Plan: 1) Pain APAP for mild pain, oxycodone for severe pain. Continue to monitor prn medication use, daily pain scores. 2) Hypothyroidism Levothyroxine. Continue to monitor s/s hyper/hypothyroidism. 3) GI Pantoprazole, prn TUMS. Continue to monitor prn medication use, s/s GI distress. 4) DVT PPx Enoxaparin. Continue to monitor s/s bleeding. Psychotropic Medications: 5) Anxiety/Depression Citalopram, lorazepam prn. Continue to monitor prn medication use, for anxiety/depression. Unnecessary Medications: None Bowel Regimen: 6) Senna/s, PEG, prn bisacodyl. Continue to monitor prn medication use, for constipation/diarrhea. Date of Note:: 11/08/18 - Provider Comments Provider responsibility: Provider responsible to enter orders to implement recommendations <Gage Carrion Chi - Last Filed: 11/08/18 19:38> Progress Note - Pharmacy Subjective: [] Objective: Allergies No Known Allergies Allergy (Verified 10/13/18 21:20) Current Medications Generic Name Dose Route Start Last Admin Trade Name Freq PRN Reason Stop Dose Admin Acetaminophen 1,000 mg 11/02/18 16:05 Tylenol PO Q6H PRN MILD PAIN (1-310) Bisacodyl 10 mg 11/02/18 16:06 11/07/18 13:18 Dulcolax PO 10 mg DAILY PRN Administration Constipation Calcium Carbonate 500 mg 11/02/18 15:20 Tums PO Q6H PRN PRN INDIGESTION Citalopram Hydrobromide 20 mg 11/03/18 08:00 11/08/18 09:57 Celexa PO 20 mg 0800 [facility] Administration Enoxaparin Sodium 40 mg 11/03/18 08:00 11/08/18 09:57 Lovenox SC 40 mg DAILY@0800 [facility] Administration Hydrocortisone 1 applic 11/03/18 12:30 Hytone TOPICAL BID PRN PRN ITCHING Protocol Levothyroxine Sodium 175 mcg 11/03/18 08:00 11/08/18 09:58 Synthroid PO 175 mcg 0800 [facility] Administration Loratadine 10 mg 11/03/18 08:00 11/08/18 08:09 Claritin PO Not Given 0800 [facility] Lorazepam 1 mg 11/02/18 23:55 11/07/18 08:49 Ativan PO 1 mg BID PRN PRN Administration ANXIETY Oxycodone HCl 10 mg 11/02/18 16:07 11/08/18 14:34 Oxyir PO 10 mg Q4H PRN PRN Administration SEVERE PAIN (6-10/10) Pantoprazole Sodium 20 mg 11/03/18 08:00 11/08/18 09:57 Protonix PO 20 mg DAILY@0800 [facility] Administration Polyethylene Glycol 17 gm 11/03/18 08:00 11/08/18 09:57 Miralax PO Not Given 0800 [facility] Senna/Docusate Sodium 2 tablet 11/03/18 08:00 11/08/18 17:01 Senokot-S, Rosalba-Colace PO 2 tablet 0800,1800 [facility] Administration Tuberculin PPD 5 tu 11/10/18 10:00 Tubersol, Aplisol, Ppd ID 11/10/18 10:01 X1 ONE Problem List Left shoulder pain (Acute) Shoulder fracture, left (Acute) Left humeral fracture (Acute) Vital Signs Temp Pulse Resp BP Pulse Ox 98.1 F 59 L 20 H 120/76 94 11/08/18 15:34 11/08/18 15:34 11/08/18 15:34 11/08/18 15:34 11/08/18 15:34 Oxygen Delivery Method Room Air Weight: 103.107 kg Body Mass Index (BMI) 37.9 Sodium 138 mmol/L (136-145) 11/03/18 06:36 Potassium 4.1 mmol/L (3.5-5.1) 11/03/18 06:36 Chloride 103 mmol/L (98-107) 11/03/18 06:36 Carbon Dioxide 31.0 mmol/L (21.0-32.0) 11/03/18 06:36 Anion Gap 4 (5-15) L 11/03/18 06:36 BUN 11 mg/dL (7-18) 11/03/18 06:36 Creatinine 1.10 mg/dL (0.70-1.30) 11/03/18 06:36 Est GFR (MDRD) Af Amer 91 mL/min (>60) 11/03/18 06:36 Est GFR (MDRD) Non-Af 75 mL/min (>60) 11/03/18 06:36 BUN/Creatinine Ratio 10.0 RATIO (10-20) 11/03/18 06:36 Glucose 97 mg/dL (74-106) 11/03/18 06:36 Assessment/Plan: Psychotropic Medications: Unnecessary Medications: Bowel Regimen: - Provider Comments Provider responsibility: Provider responsible to enter orders to implement recommendations Provider Comments to Recommendations by Pharmacy: Agree
--- NOTE | 2018-11-08 13:40 | PHA.CONS_ITS ---
<Germain Webster D - Last Filed: 11/08/18 13:17> Progress Note - Pharmacy Subjective: TCU Admission Objective: Allergies No Known Allergies Allergy (Verified 10/13/18 21:20) Current Medications Generic Name Dose Route Start Last Admin Trade Name Freq PRN Reason Stop Dose Admin Acetaminophen 1,000 mg 11/02/18 16:05 Tylenol PO Q6H PRN MILD PAIN (1-3/10) Bisacodyl 10 mg 11/02/18 16:06 11/07/18 13:18 Dulcolax PO 10 mg DAILY PRN Administration Constipation Calcium Carbonate 500 mg 11/02/18 15:20 Tums PO Q6H PRN PRN INDIGESTION Citalopram Hydrobromide 20 mg 11/03/18 08:00 11/08/18 09:57 Celexa PO 20 mg 0800 [facility] Administration Enoxaparin Sodium 40 mg 11/03/18 08:00 11/08/18 09:57 Lovenox SC 40 mg DAILY@0800 [facility] Administration Hydrocortisone 1 applic 11/03/18 12:30 Hytone TOPICAL BID PRN PRN ITCHING Protocol Levothyroxine Sodium 175 mcg 11/03/18 08:00 11/08/18 09:58 Synthroid PO 175 mcg 0800 [facility] Administration Loratadine 10 mg 11/03/18 08:00 11/08/18 08:09 Claritin PO Not Given 0800 [facility] Lorazepam 1 mg 11/02/18 23:55 11/07/18 08:49 Ativan PO 1 mg BID PRN PRN Administration ANXIETY Oxycodone HCl 10 mg 11/02/18 16:07 11/08/18 10:03 Oxyir PO 10 mg Q4H PRN PRN Administration SEVERE PAIN (6-10/10) Pantoprazole Sodium 20 mg 11/03/18 08:00 11/08/18 09:57 Protonix PO 20 mg DAILY@0800 [facility] Administration Polyethylene Glycol 17 gm 11/03/18 08:00 11/08/18 09:57 Miralax PO Not Given 0800 [facility] Senna/Docusate Sodium 2 tablet 11/03/18 08:00 11/08/18 09:57 Senokot-S, Rosalba-Colace PO 2 tablet 0800,1800 [facility] Administration Tuberculin PPD 5 tu 11/10/18 10:00 Tubersol, Aplisol, Ppd ID 11/10/18 10:01 X1 ONE Problem List Left shoulder pain (Acute) Shoulder fracture, left (Acute) Left humeral fracture (Acute) Vital Signs Temp Pulse Resp BP Pulse Ox 98.3 F 62 18 113/71 95 11/07/18 16:00 11/07/18 16:00 11/07/18 16:00 11/07/18 16:00 11/07/18 16:00 Oxygen Delivery Method Room Air Weight: 103.107 kg Body Mass Index (BMI) 37.9 Sodium 138 mmol/L (136-145) 11/03/18 06:36 Potassium 4.1 mmol/L (3.5-5.1) 11/03/18 06:36 Chloride 103 mmol/L (98-107) 11/03/18 06:36 Carbon Dioxide 31.0 mmol/L (21.0-32.0) 11/03/18 06:36 Anion Gap 4 (5-15) L 11/03/18 06:36 BUN 11 mg/dL (7-18) 11/03/18 06:36 Creatinine 1.10 mg/dL (0.70-1.30) 11/03/18 06:36 Est GFR (MDRD) Af Amer 91 mL/min (>60) 11/03/18 06:36 Est GFR (MDRD) Non-Af 75 mL/min (>60) 11/03/18 06:36 BUN/Creatinine Ratio 10.0 RATIO (10-20) 11/03/18 06:36 Glucose 97 mg/dL (74-106) 11/03/18 06:36 Assessment/Plan: 1) Pain APAP for mild pain, oxycodone for severe pain. Continue to monitor prn medication use, daily pain scores. 2) Hypothyroidism Levothyroxine. Continue to monitor s/s hyper/hypothyroidism. 3) GI Pantoprazole, prn TUMS. Continue to monitor prn medication use, s/s GI distress. 4) DVT PPx Enoxaparin. Continue to monitor s/s bleeding. Psychotropic Medications: 5) Anxiety/Depression Citalopram, lorazepam prn. Continue to monitor prn medication use, for anxiety/depression. Unnecessary Medications: None Bowel Regimen: 6) Senna/s, PEG, prn bisacodyl. Continue to monitor prn medication use, for constipation/diarrhea. Date of Note:: 11/08/18 - Provider Comments Provider responsibility: Provider responsible to enter orders to implement recommendations <Gage Carrion Chi - Last Filed: 11/08/18 19:38> Progress Note - Pharmacy Subjective: [] Objective: Allergies No Known Allergies Allergy (Verified 10/13/18 21:20) Current Medications Generic Name Dose Route Start Last Admin Trade Name Freq PRN Reason Stop Dose Admin Acetaminophen 1,000 mg 11/02/18 16:05 Tylenol PO Q6H PRN MILD PAIN (1-310) Bisacodyl 10 mg 11/02/18 16:06 11/07/18 13:18 Dulcolax PO 10 mg DAILY PRN Administration Constipation Calcium Carbonate 500 mg 11/02/18 15:20 Tums PO Q6H PRN PRN INDIGESTION Citalopram Hydrobromide 20 mg 11/03/18 08:00 11/08/18 09:57 Celexa PO 20 mg 0800 [facility] Administration Enoxaparin Sodium 40 mg 11/03/18 08:00 11/08/18 09:57 Lovenox SC 40 mg DAILY@0800 [facility] Administration Hydrocortisone 1 applic 11/03/18 12:30 Hytone TOPICAL BID PRN PRN ITCHING Protocol Levothyroxine Sodium 175 mcg 11/03/18 08:00 11/08/18 09:58 Synthroid PO 175 mcg 0800 [facility] Administration Loratadine 10 mg 11/03/18 08:00 11/08/18 08:09 Claritin PO Not Given 0800 [facility] Lorazepam 1 mg 11/02/18 23:55 11/07/18 08:49 Ativan PO 1 mg BID PRN PRN Administration ANXIETY Oxycodone HCl 10 mg 11/02/18 16:07 11/08/18 14:34 Oxyir PO 10 mg Q4H PRN PRN Administration SEVERE PAIN (6-10/10) Pantoprazole Sodium 20 mg 11/03/18 08:00 11/08/18 09:57 Protonix PO 20 mg DAILY@0800 [facility] Administration Polyethylene Glycol 17 gm 11/03/18 08:00 11/08/18 09:57 Miralax PO Not Given 0800 [facility] Senna/Docusate Sodium 2 tablet 11/03/18 08:00 11/08/18 17:01 Senokot-S, Rosalba-Colace PO 2 tablet 0800,1800 [facility] Administration Tuberculin PPD 5 tu 11/10/18 10:00 Tubersol, Aplisol, Ppd ID 11/10/18 10:01 X1 ONE Problem List Left shoulder pain (Acute) Shoulder fracture, left (Acute) Left humeral fracture (Acute) Vital Signs Temp Pulse Resp BP Pulse Ox 98.1 F 59 L 20 H 120/76 94 11/08/18 15:34 11/08/18 15:34 11/08/18 15:34 11/08/18 15:34 11/08/18 15:34 Oxygen Delivery Method Room Air Weight: 103.107 kg Body Mass Index (BMI) 37.9 Sodium 138 mmol/L (136-145) 11/03/18 06:36 Potassium 4.1 mmol/L (3.5-5.1) 11/03/18 06:36 Chloride 103 mmol/L (98-107) 11/03/18 06:36 Carbon Dioxide 31.0 mmol/L (21.0-32.0) 11/03/18 06:36 Anion Gap 4 (5-15) L 11/03/18 06:36 BUN 11 mg/dL (7-18) 11/03/18 06:36 Creatinine 1.10 mg/dL (0.70-1.30) 11/03/18 06:36 Est GFR (MDRD) Af Amer 91 mL/min (>60) 11/03/18 06:36 Est GFR (MDRD) Non-Af 75 mL/min (>60) 11/03/18 06:36 BUN/Creatinine Ratio 10.0 RATIO (10-20) 11/03/18 06:36 Glucose 97 mg/dL (74-106) 11/03/18 06:36 Assessment/Plan: Psychotropic Medications: Unnecessary Medications: Bowel Regimen: - Provider Comments Provider responsibility: Provider responsible to enter orders to implement recommendations Provider Comments to Recommendations by Pharmacy: Agree
[2018-11-08 15:34] VITALS: BP 120/76; PULSE 59; RESP 20; TEMP 36.7; O2SAT 94
[2018-11-08] MEDS: LORazepam 1 MG Tablet PO (22:52)
[2018-11-09] MEDS: oxyCODONE 5 MG Tablet 10 MG PO ×4 (08:44→22:37)
[2018-11-09] MEDS: Senna/Docusate Sodium 1 Tablet 2 TABLET PO ×2 (08:45→16:21)
[2018-11-09] MEDS: Loratadine 10 MG Tablet PO (08:45)
[2018-11-09] MEDS: Citalopram 20 MG Tablet PO (08:45)
[2018-11-09] MEDS: Enoxaparin 40 MG/0.4 ML Syringe SC (08:45)
[2018-11-09] MEDS: Levothyroxine 175 MCG Tablet PO (08:46)
[2018-11-09] MEDS: Pantoprazole Sodium 20 MG Tablet PO (08:46)
--- NOTE | 2018-11-09 13:37 | PCA ---
Patient did not want to take a shower today 11/09/2018. Pt stated that he arranged for a shower to be given by therapy assistance on 11/10/18
[2018-11-09 15:19] VITALS: BP 120/71; PULSE 94; RESP 16; TEMP 37.1; O2SAT 95
[2018-11-09] MEDS: Naproxen 500 MG Tablet PO (16:21)
[2018-11-09 22:40] VITALS: O2SAT 95
[2018-11-10 06:56] LABS: Absolute Neutrophil Count 3.5 X10^3/uL (2.0-7.7); Basophil# 0.01 X10^3/uL; Basophil% 0.2 % (0-1); Eosinophil# 0.21 X10^3/uL; Eosinophils% 3.2 % (0-5); Hematocrit 41.2 % (40-54); Hemoglobin 13.9 g/dl (13.0-16.5); Mean Corp Hgb Conc 33.7 g/gl (32-36); Mean Platelet Vol. 11.3 fl (6.2-12.0); Monocyte# 0.74 X10^3/uL; Monocyte% 11.3 % (0-10); Neutrophil # 3.48 X10^3/uL (2.7-7.7); Platelet Count 232 K/mm3 (150-450); RBC Distribution Width CV 12.3 % (11.6-14.6); RBC Distribution Width SD 41.6 fl (35.1-43.9); Red Blood Count 4.48 M/mm3 (4.6-6.2); White Blood Count 6.6 K/mm3 (4.4-11.0)
[2018-11-10 06:57] LABS: POSITIVE COUNT NO; POSITIVE DIFFERENTIAL NO; POSITIVE MORPHOLOGY NO
[2018-11-10 07:24] LABS: Anion Gap 5 (5-15); BUN 16 mg/dL (7-18); BUN/Creat Ratio 14.2 RATIO (10-20); Calcium,Total 8.7 mg/dL (8.5-10.1); Chloride 106 mmol/L (98-107); Creatinine, Serum 1.13 mg/dL (0.70-1.30); EST Glomerular Filtration Rate 73 mL/min (>60); Est Glom Filt Rate - Afr Amer 88 mL/min (>60); Estimated Creatinine Clearance 67.28 ml/min; Glucose 99 mg/dL (74-106); Potassium 4.1 mmol/L (3.5-5.1); Sodium Level 140 mmol/L (136-145)
[2018-11-10] MEDS: Baclofen 10 MG Tablet 20 MG PO (08:22)
[2018-11-10] MEDS: Levothyroxine 175 MCG Tablet PO (08:22)
[2018-11-10] MEDS: Pantoprazole Sodium 20 MG Tablet PO (08:22)
[2018-11-10] MEDS: Citalopram 20 MG Tablet PO (08:23)
[2018-11-10] MEDS: Loratadine 10 MG Tablet PO (08:23)
[2018-11-10] MEDS: Enoxaparin 40 MG/0.4 ML Syringe SC (08:23)
[2018-11-10] MEDS: Naproxen 500 MG Tablet PO ×2 (08:23→17:54)
[2018-11-10] MEDS: Senna/Docusate Sodium 1 Tablet 2 TABLET PO ×2 (08:23→17:54)
[2018-11-10] MEDS: oxyCODONE 5 MG Tablet 10 MG PO ×3 (09:00→22:03)
[2018-11-10] MEDS: Tuberculin,Purif.prot.deriv. 50 TU/ML Vial 5 ML ID (11:52)
[2018-11-10 16:00] VITALS: BP 121/71; PULSE 64; RESP 16; TEMP 36.6; O2SAT 95
[2018-11-11] MEDS: Senna/Docusate Sodium 1 Tablet 2 TABLET PO ×2 (09:07→17:00)
[2018-11-11] MEDS: Baclofen 10 MG Tablet 20 MG PO (09:07)
[2018-11-11] MEDS: Levothyroxine 175 MCG Tablet PO (09:07)
[2018-11-11] MEDS: Enoxaparin 40 MG/0.4 ML Syringe SC (09:07)
[2018-11-11] MEDS: Pantoprazole Sodium 20 MG Tablet PO (09:07)
[2018-11-11] MEDS: Loratadine 10 MG Tablet PO (09:07)
[2018-11-11] MEDS: Naproxen 500 MG Tablet PO ×2 (09:07→17:00)
[2018-11-11] MEDS: Citalopram 20 MG Tablet PO (09:08)
[2018-11-11] MEDS: oxyCODONE 5 MG Tablet 10 MG PO ×3 (09:12→20:24)
[2018-11-11 15:27] VITALS: BP 128/82; PULSE 61; RESP 18; TEMP 36.7; O2SAT 94
[2018-11-12] MEDS: Pantoprazole Sodium 20 MG Tablet PO (08:46)
[2018-11-12] MEDS: Levothyroxine 175 MCG Tablet PO (08:46)
[2018-11-12] MEDS: Loratadine 10 MG Tablet PO (08:46)
[2018-11-12] MEDS: Senna/Docusate Sodium 1 Tablet 2 TABLET PO ×2 (08:46→18:12)
[2018-11-12] MEDS: Citalopram 20 MG Tablet PO (08:46)
[2018-11-12] MEDS: Naproxen 500 MG Tablet PO ×2 (08:46→18:13)
[2018-11-12] MEDS: Hydrocortisone 2.5% Crm 1 APPLIC TOPICAL (08:48)
--- NOTE | 2018-11-12 09:17 | NURSING ---
Held lovenox this AM, pt has appt with Dr Bagley today, may get injection in back.
--- NOTE | 2018-11-12 10:42 | NURSING ---
pt off unit to Dr Bagley's office at this time.
[2018-11-12] MEDS: oxyCODONE 5 MG Tablet 10 MG PO ×3 (11:50→23:49)
[2018-11-12] MEDS: Baclofen 10 MG Tablet 20 MG PO (11:50)
[2018-11-12] MEDS: Enoxaparin 40 MG/0.4 ML Syringe SC (11:51)
--- NOTE | 2018-11-12 11:59 | NURSING ---
Addendum entered by Lexi Lopez 11/12/18 18:43: pt reported that Dr Bagley stating he doesnt understand why pt in to see him. all records sent with pt. Dr bullard spoke with pt and would like staff to call dr Bagley regarding a epidural steroid back injection Original Note: returned from appt, no new orders.
[2018-11-12 14:21] VITALS: BP 131/55; PULSE 62; RESP 18; TEMP 36.7; O2SAT 95
[2018-11-12 14:34] VITALS: PULSE 62; RESP 18
[2018-11-12 14:40] LABS: Bedside Glucose 103 mg/dL (70-110)
--- NOTE | 2018-11-12 14:42 | NURSING ---
pt c/o palpitations, was just sitting in common area playing cards. HR regular 60's. all vitals WNL. Pt going to therapy. If pt continues with c/o will get EKG. blood sugar checked 103 per pt request.
--- NOTE | 2018-11-13 09:41 | NURSING ---
Dr Bagley consulted on pt for possible steroid back injection. notified his office this AM per Dr Carrion request
[2018-11-13] MEDS: Citalopram 20 MG Tablet PO (09:51)
[2018-11-13] MEDS: oxyCODONE 5 MG Tablet 10 MG PO ×2 (09:51→15:23)
[2018-11-13] MEDS: Loratadine 10 MG Tablet PO (09:51)
[2018-11-13] MEDS: Enoxaparin 40 MG/0.4 ML Syringe SC (09:52)
[2018-11-13] MEDS: Naproxen 500 MG Tablet PO ×2 (09:52→17:23)
[2018-11-13] MEDS: Senna/Docusate Sodium 1 Tablet 2 TABLET PO ×2 (09:52→17:23)
[2018-11-13] MEDS: Pantoprazole Sodium 20 MG Tablet PO (09:52)
[2018-11-13] MEDS: Levothyroxine 175 MCG Tablet PO (09:52)
[2018-11-13 10:30] VITALS: BP 132/70; PULSE 62
--- NOTE | 2018-11-13 10:30 | NURSING ---
walking in halls with therapy. Reports feeling dizzy. Seated in wheelchair and vitals taken. Will continue to monitor.
--- NOTE | 2018-11-13 11:06 | NURSING ---
Addendum entered by Lexi Lopez 11/13/18 11:08: Dr Bagley office called and will be doing injection tomorrow, will call back with time. Original Note: Dr Bagley's office called and new order to make pt NPO, and hold pain meds for now for back injection in OR today.
[2018-11-13] MEDS: Baclofen 10 MG Tablet 20 MG PO (11:18)
[2018-11-13 16:00] VITALS: BP 122/92; PULSE 60; RESP 20; TEMP 35.6; O2SAT 98
--- NOTE | 2018-11-13 18:19 | NURSING ---
pt c/o lightheadedness last couple days w/therapy. vitals WNL. Dr Carrion updated, no new orders.
--- NOTE | 2018-11-14 10:09 | PCA ---
I went into Jasson's room to tell him that someone from surgery keeps on calling him & asked him if he keeps on hanging up the phone. He said he did not have the phone by him. I explained to him again about the phone & he tells me to [facility] (kathleen) with his finger over his mouth. I told him Do not tell me to kathleen, that was very disrespectful to me. I told him that I am a loud talker. He told me to get out of his room as I was walking out. He said it again & I turned around & said do you see me walking out I went out & found Sissy & told her what happened as he was yelling from his room since he heard me tell Sissy.
--- NOTE | 2018-11-14 10:31 | MDS.RN ---
Information for the mds was obtained from review of the clinical record, interview of resident, staff, and direct observation of resident's care.
[2018-11-14] MEDS: Loratadine 10 MG Tablet PO (13:53)
[2018-11-14] MEDS: Levothyroxine 175 MCG Tablet PO (13:53)
[2018-11-14] MEDS: Citalopram 20 MG Tablet PO (13:53)
[2018-11-14] MEDS: Pantoprazole Sodium 20 MG Tablet PO (13:53)
[2018-11-14] MEDS: oxyCODONE 5 MG Tablet 10 MG PO ×2 (13:54→20:01)
[2018-11-14 16:00] VITALS: BP 147/79; PULSE 64; RESP 16; TEMP 36.6; O2SAT 94
[2018-11-14] MEDS: Naproxen 500 MG Tablet PO (17:41)
[2018-11-14] MEDS: Senna/Docusate Sodium 1 Tablet 2 TABLET PO (17:41)
[2018-11-15] MEDS: oxyCODONE 5 MG Tablet 10 MG PO ×3 (00:43→16:53)
[2018-11-15] MEDS: Baclofen 10 MG Tablet 20 MG PO (09:24)
[2018-11-15] MEDS: Citalopram 20 MG Tablet PO (09:25)
[2018-11-15] MEDS: Pantoprazole Sodium 20 MG Tablet PO (09:25)
[2018-11-15] MEDS: Loratadine 10 MG Tablet PO (09:25)
[2018-11-15] MEDS: Naproxen 500 MG Tablet PO (09:25)
[2018-11-15] MEDS: Levothyroxine 175 MCG Tablet PO (09:25)
[2018-11-15] MEDS: Enoxaparin 40 MG/0.4 ML Syringe SC (09:26)
[2018-11-15] MEDS: Senna/Docusate Sodium 1 Tablet 2 TABLET PO ×2 (09:31→16:47)
--- NOTE | 2018-11-15 13:20 | CASEMGMT ---
Addendum entered by Roxanne Newell 11/15/18 13:27: Student social work MDS documentation reviewed. NYDIA Ordoñez Original Note: Brief interview for mental status (BIMS) and mood (PHQ-9) completed on this day. BIMS score 15. PHQ-9 score 10/17. Riaz Becerra social work student
[2018-11-15 16:00] VITALS: BP 142/73; PULSE 58; RESP 18; TEMP 36.8; O2SAT 98
[2018-11-16] MEDS: Loratadine 10 MG Tablet PO (09:03)
[2018-11-16] MEDS: Citalopram 20 MG Tablet PO (09:03)
[2018-11-16] MEDS: Polyethylene Glycol 3350 17 GM PACKET PO (09:03)
[2018-11-16] MEDS: Pantoprazole Sodium 20 MG Tablet PO (09:04)
[2018-11-16] MEDS: Senna/Docusate Sodium 1 Tablet 2 TABLET PO ×2 (09:05→16:37)
[2018-11-16] MEDS: Levothyroxine 175 MCG Tablet PO (09:05)
[2018-11-16] MEDS: oxyCODONE 5 MG Tablet 10 MG PO ×2 (09:05→16:39)
[2018-11-16] MEDS: Baclofen 10 MG Tablet 20 MG PO (10:08)
[2018-11-16] MEDS: Enoxaparin 40 MG/0.4 ML Syringe SC (10:09)
--- NOTE | 2018-11-16 11:41 | NURSING ---
pt refusing naproxen, feels that is what is causing his edema. Dr bullard updated, new order to DC.
[2018-11-16 16:00] VITALS: BP 121/79; PULSE 79; RESP 18; TEMP 36.8; O2SAT 96
[2018-11-17 08:44] LABS: Absolute Lymphocyte Count 1.92 X10^3/ul (0.83-4.51); Absolute Neutrophil Count 10.1 X10^3/uL (2.0-7.7); Basophil# 0.02 X10^3/uL; Basophil% 0.2 % (0-1); Eosinophil# 0.01 X10^3/uL; Eosinophils% 0.1 % (0-5); Hematocrit 43.5 % (40-54); Hemoglobin 14.4 g/dl (13.0-16.5); Lymphocyte # 1.92 X10^3/ul (4.0); Lymphocyte % 14.7 % (19-41); Mean Corp Hgb Conc 33.1 g/gl (32-36); Mean Corpuscular Hgb 30.1 pg (27.0-32.0); Mean Platelet Vol. 11.9 fl (6.2-12.0); Monocyte# 0.93 X10^3/uL; Monocyte% 7.1 % (0-10); Neutrophil % 77.2 % (47-70); Platelet Count 243 K/mm3 (150-450); RBC Distribution Width CV 12.6 % (11.6-14.6); RBC Distribution Width SD 41.3 fl (35.1-43.9); Red Blood Count 4.78 M/mm3 (4.6-6.2); White Blood Count 13.1 K/mm3 (4.4-11.0)
[2018-11-17 08:47] LABS: POSITIVE COUNT NO; POSITIVE DIFFERENTIAL NO; POSITIVE MORPHOLOGY NO
[2018-11-17 08:56] LABS: Anion Gap 4 (5-15); BUN 19 mg/dL (7-18); BUN/Creat Ratio 17.3 RATIO (10-20); Calcium,Total 8.4 mg/dL (8.5-10.1); Chloride 108 mmol/L (98-107); EST Glomerular Filtration Rate 75 mL/min (>60); Est Glom Filt Rate - Afr Amer 91 mL/min (>60); Estimated Creatinine Clearance 69.11 ml/min; Glucose 106 mg/dL (74-106); Potassium 4.4 mmol/L (3.5-5.1); Sodium Level 139 mmol/L (136-145)
[2018-11-17] MEDS: Pantoprazole Sodium 20 MG Tablet PO (09:29)
[2018-11-17] MEDS: Citalopram 20 MG Tablet PO (09:29)
[2018-11-17] MEDS: Loratadine 10 MG Tablet PO (09:29)
[2018-11-17] MEDS: Enoxaparin 40 MG/0.4 ML Syringe SC (09:29)
[2018-11-17] MEDS: Senna/Docusate Sodium 1 Tablet 2 TABLET PO ×2 (09:30→15:45)
[2018-11-17] MEDS: Baclofen 10 MG Tablet 20 MG PO (09:30)
[2018-11-17] MEDS: Levothyroxine 175 MCG Tablet PO (09:30)
[2018-11-17] MEDS: oxyCODONE 5 MG Tablet 10 MG PO ×3 (10:28→22:24)
[2018-11-17 15:59] VITALS: BP 127/74; PULSE 61; RESP 20; TEMP 35.9; O2SAT 97
[2018-11-17 22:20] VITALS: PULSE 56; O2SAT 96
[2018-11-18] MEDS: oxyCODONE 5 MG Tablet 10 MG PO ×2 (10:17→15:32)
[2018-11-18] MEDS: Pantoprazole Sodium 20 MG Tablet PO (10:18)
[2018-11-18] MEDS: Senna/Docusate Sodium 1 Tablet 2 TABLET PO ×2 (10:18→17:40)
[2018-11-18] MEDS: Levothyroxine 175 MCG Tablet PO (10:18)
[2018-11-18] MEDS: Baclofen 10 MG Tablet 20 MG PO (10:18)
[2018-11-18] MEDS: Enoxaparin 40 MG/0.4 ML Syringe SC (10:19)
[2018-11-18] MEDS: Citalopram 20 MG Tablet PO (10:19)
[2018-11-18 16:00] VITALS: BP 121/73; PULSE 62; RESP 18; TEMP 36.5; O2SAT 97
[2018-11-18 20:46] VITALS: PULSE 69; O2SAT 97
[2018-11-19] MEDS: Enoxaparin 40 MG/0.4 ML Syringe SC (08:43)
[2018-11-19] MEDS: Levothyroxine 175 MCG Tablet PO (08:43)
[2018-11-19] MEDS: Citalopram 20 MG Tablet PO (08:43)
[2018-11-19] MEDS: Loratadine 10 MG Tablet PO (08:43)
[2018-11-19] MEDS: Senna/Docusate Sodium 1 Tablet 2 TABLET PO (08:43)
[2018-11-19] MEDS: Baclofen 10 MG Tablet 20 MG PO (08:43)
[2018-11-19] MEDS: Pantoprazole Sodium 20 MG Tablet PO (08:43)
[2018-11-19] MEDS: oxyCODONE 5 MG Tablet 10 MG PO ×4 (08:43→22:46)
--- NOTE | 2018-11-19 16:16 | NURSING ---
spoke with Dr. Barillas today, NO for WBAT to LUE
--- NOTE | 2018-11-19 18:00 | NURSING ---
per Dr. Moreno, eye is red due to iritis and noncompliance with prednisolone eye gtts and f/u appts. NO for prednisolone 1% 1 gtt BID
[2018-11-19] MEDS: prednisoLONE eye drops (5 mL) 1 DROP OPTH.BTL 1 DRP RIGHT EYE (18:23)
[2018-11-20] MEDS: Calcium Carbonate 500 MG Tablet PO (04:23)
[2018-11-20] MEDS: Citalopram 20 MG Tablet PO (09:09)
[2018-11-20] MEDS: oxyCODONE 5 MG Tablet 10 MG PO ×3 (09:10→23:20)
[2018-11-20] MEDS: Loratadine 10 MG Tablet PO (09:11)
[2018-11-20] MEDS: Pantoprazole Sodium 20 MG Tablet PO (09:11)
[2018-11-20] MEDS: Senna/Docusate Sodium 1 Tablet 2 TABLET PO ×2 (09:11→16:31)
[2018-11-20] MEDS: prednisoLONE eye drops (5 mL) 1 DROP OPTH.BTL 1 DRP RIGHT EYE ×2 (09:11→16:31)
[2018-11-20] MEDS: Enoxaparin 40 MG/0.4 ML Syringe SC (09:12)
[2018-11-20] MEDS: Baclofen 10 MG Tablet 20 MG PO (10:55)
[2018-11-20] MEDS: Levothyroxine 175 MCG Tablet PO (10:56)
--- NOTE | 2018-11-20 14:45 | CASEMGMT ---
Social Work SW met with pt. Pt inquiring about continued stay or discharge. SW spoke with therapy about recommendations and they feel pt would be able to return home alone at this time and are recommending outpt PT/OT. SW relayed this to pt and pt stating he has also spoke with therapy and feels he can return home and would like to set d/c date for Thursday 11/23. PT is uncertain about transportation for outpt therapy. SW offered hospital van. Pt would prefer home health services initially upon return home and would like to use [facility]. Pt does have all needed DME. Plan: D/C home 11/23/18 with home health services PT/OT NYDIA Ordoñez
[2018-11-20 16:00] VITALS: BP 122/74; PULSE 66; RESP 20; TEMP 36; O2SAT 96
[2018-11-20 22:03] VITALS: PULSE 67; O2SAT 97
[2018-11-21] MEDS: oxyCODONE 5 MG Tablet 10 MG PO ×3 (09:51→21:39)
[2018-11-21] MEDS: Baclofen 10 MG Tablet 20 MG PO (09:52)
[2018-11-21] MEDS: Citalopram 20 MG Tablet PO (09:52)
[2018-11-21] MEDS: Enoxaparin 40 MG/0.4 ML Syringe SC (09:52)
[2018-11-21] MEDS: Senna/Docusate Sodium 1 Tablet 2 TABLET PO ×2 (09:52→16:50)
[2018-11-21] MEDS: Levothyroxine 175 MCG Tablet PO (09:53)
[2018-11-21] MEDS: Pantoprazole Sodium 20 MG Tablet PO (09:53)
[2018-11-21] MEDS: prednisoLONE eye drops (5 mL) 1 DROP OPTH.BTL 1 DRP RIGHT EYE ×2 (09:54→16:50)
--- NOTE | 2018-11-21 12:00 | CASEMGMT ---
Social Work Discharge planned for Monday11/23/18. PT plans to return home with son but son is unable to assist. Pt would like [facility] PT/OT. Referral made to Anne at [facility]. PT has needed DME and will secure transportation home. No further d/c needs. Plan: D/C 11/23 home with [facility] PT/OT NYDIA Ordoñez
[2018-11-21 15:07] VITALS: BP 125/77; BP 129/78; BP 132/69; PULSE 58; PULSE 66; PULSE 69
[2018-11-21 16:00] VITALS: BP 133/89; PULSE 61; RESP 20; TEMP 35.9; O2SAT 97
--- NOTE | 2018-11-21 20:33 | DCINST_ITS ---
- Discharge Diagnoses Current Active Problems: Current Active and Chronic Problems Left shoulder pain (Acute) Shoulder fracture, left (Acute) Left humeral fracture (Acute) You will use the following diet at home:: No restrictions, Regular Your food should be the consistency of: Regular Your liquids should be the consistency of: Regular/Thin Discharge Activity: Return to Normal Activity, May Shower, Use Walker Weight Bearing Status: Weight bearing as tolerated Call your doctor if you observe: Fever of 101 or Higher, Inability to urinate, Inability to have a bowel movement, Shortness of breath, Chest pain, Uncontrolled pain Allergies/Adverse Reactions: Allergies No Known Allergies Allergy (Verified 11/13/18 13:51) Medications to take at Discharge Levothyroxine [Synthroid] 175 mcg PO DAILY 05/21/16 Loratadine [Claritin] 10 mg PO DAILY 10/16/18 Calcium Carbonate [Tums] 500 mg PO Q6H PRN PRN tablet 11/01/18 Citalopram [Celexa] 20 mg PO DAILY 11/02/18 Acetaminophen [Tylenol] 1,000 mg PO Q6H PRN tablet 11/21/18 Baclofen [Lioresal] 20 mg PO QAM #60 tablet 11/21/18 Hydrocortisone 2.5% Crm [Hytone] 1 applic TOPICAL BID PRN PRN #1 tube 11/21/18 Oxycodone [Oxyir] 5 mg PO Q6H PRN PRN 7 Days #30 tab 11/21/18 prednisoLONE eye drops (5 mL) [Pred Forte eye drops (5 mL)] 1 drop RIGHT EYE 0800,1800 opth.btl 11/21/18 The following prescriptions were given: Oxycodone [Oxyir] 5 mg PO Q6H PRN PRN 7 Days #30 tab PRN Reason: Severe Pain (6-10/10) Baclofen [Lioresal] 20 mg PO QAM #60 tablet Hydrocortisone 2.5% Crm [Hytone] 1 applic TOPICAL BID PRN PRN #1 tube PRN Reason: Itching Primary Care Physician: Sai Cobian MD [Primary Care Provider] - Please follow up with your Primary Care Physician in: 1 week. Test Results: Test results from this visit will be discussed in further detail at your follow- up appointment, if applicable. Please Follow Up With: Sunday Barillas DO When: 1-2 wks Please Follow Up With: Carlitos Bagley MD When: 1-2 wks Please Follow Up With: Dr. Messer Proposed Discharge Date: 11/23/18
--- NOTE | 2018-11-21 20:33 | PCM.DC.SUM ---
Discharge Date and Diagnosis - Problem List Patient Problems: Active and Suspected Problems Left shoulder pain (Acute) Shoulder fracture, left (Acute) Left humeral fracture (Acute) Date of Admission: 11/02/18 Date of Discharge: 11/23/18 - Primary Discharge Diagnosis Active and Suspected Problems Left shoulder pain (Acute) Shoulder fracture, left (Acute) Left humeral fracture (Acute) - Secondary Discharge Diagnosis Chronic Problems Cerebral palsy (Chronic) GERD (gastroesophageal reflux disease) (Chronic) Obstructive sleep apnea (Chronic) Multilevel spinal canal stenosis (Chronic) Intractable low back pain (Chronic) Hypothyroidism (Chronic) Anxiety (Chronic) Depression (Chronic) Hospital Course and Treatment Imaging Results: 11/14/18 17:45 Diet: Regular Diet Is pt able to select menu?: Yes Operations: None Procedures: None Summary of Care Provided: The patient is a 53 year old Male with below past medical history admitted to for debility, secondary to left humeral fracture, left shoulder pain, admitted to TCU with debility, here for rehabilitation, strengthening, prior to discharge home with family. Discharge home with son, with Home Health Services for PT/OT. Patient Problems: Active and Suspected Problems Left shoulder pain (Acute) Shoulder fracture, left (Acute) Left humeral fracture (Acute) - Physical Exam Vital Signs Temp Pulse Resp BP Pulse Ox 96.7 F L 61 20 H 133/89 H 97 11/21/18 16:00 11/21/18 16:00 11/21/18 16:00 11/21/18 16:00 11/21/18 16:00 Oxygen Delivery Method Room Air Weight: 99.79 kg Body Mass Index (BMI) 37.9 Orthostatic Vital Signs Start: 11/21/18 15:07 Freq: q24h Status: Active Protocol: Activity Type Activity Date Activity User E-Sign Co-Sign Detail Recorded Client Recorded Date Recorded By Document 11/21/18 15:07 MJM [id number] 11/21/18 15:08 MJM 11/21/18 15:07 Orthostatic Vitals Standing -Blood Pressure (90/60-120/80) 125/77 H -Extremity Use Left Arm -Pulse Rate (60-100) 69 Sitting -Blood Pressure (90/60-120/80) 129/78 H -Extremity Use Left Arm -Pulse Rate (60-100) 66 Lying -Blood Pressure (90/60-120/80) 132/69 H -Extremity Use Left Arm -Pulse Rate (60-100) 58 L Intake and Output for Last 24 Hours 11/19/18 11/20/18 11/21/18 23:59 23:59 23:59 Intake Total 600 / 600 720 / 720 120 / 120 Balance 600 / 600 720 / 720 120 / 120 Discharge Diet: No Restrictions Discharge Activity: Return to Normal Activity, May Shower, Use Walker Weight Bearing Status: Weight bearing as tolerated Call your doctor if you observe: Fever of 101 or Higher, Inability to urinate, Inability to have a bowel movement, Shortness of breath, Chest pain, Uncontrolled pain Home Medications: Medications to take at Discharge Levothyroxine [Synthroid] 175 mcg PO DAILY 05/21/16 Loratadine [Claritin] 10 mg PO DAILY 10/16/18 Calcium Carbonate [Tums] 500 mg PO Q6H PRN PRN tablet 11/01/18 Citalopram [Celexa] 20 mg PO DAILY 11/02/18 Acetaminophen [Tylenol] 1,000 mg PO Q6H PRN tablet 11/21/18 Baclofen [Lioresal] 20 mg PO QAM #60 tablet 11/21/18 Hydrocortisone 2.5% Crm [Hytone] 1 applic TOPICAL BID PRN PRN #1 tube 11/21/18 Oxycodone [Oxyir] 5 mg PO Q6H PRN PRN 7 Days #30 tab 11/21/18 prednisoLONE eye drops (5 mL) [Pred Forte eye drops (5 mL)] 1 drop RIGHT EYE 0800,1800 opth.btl 11/21/18 Following Prescrptions Were Given to Patient: Oxycodone [Oxyir] 5 mg PO Q6H PRN PRN 7 Days #30 tab PRN Reason: Severe Pain (6-10/10) Baclofen [Lioresal] 20 mg PO QAM #60 tablet Hydrocortisone 2.5% Crm [Hytone] 1 applic TOPICAL BID PRN PRN #1 tube PRN Reason: Itching Primary Care Physician: Sai Cobian MD [Primary Care Provider] - Please follow up with your Primary Care Physician in: 1 week. Please Follow Up With: Sunday Barillas DO When: 1-2 wks Please Follow Up With: Carlitos Bagley MD When: 1-2 wks Please Follow Up With: Dr. Messer Disposition: Home with Home Health Minutes spent on discharge:: 35 Patient Condition:: Good Medical Necessity - Tobacco Use Smoking Status: Current every day smoker Tobacco Use: Cigarettes Meaningful Use Info Meaningful Use Diagnoses (Choose all that apply): None applicable
--- NOTE | 2018-11-21 20:35 | PCM.PN.HH ---
Home Health Note - Plan Overview of reason of hospitalization: The patient is a 53 year old Male with below past medical history admitted to for debility, secondary to left humeral fracture, left shoulder pain, admitted to TCU with debility, here for rehabilitation, strengthening, prior to discharge home with family. Discharge home with son, with Home Health Services for PT/OT. Problems: Patient was seen for Left shoulder pain (Acute) Shoulder fracture, left (Acute) Left humeral fracture (Acute) Complete List of Medical Problems Cerebral palsy (Chronic) Left shoulder pain (Acute) Shoulder fracture, left (Acute) Left humeral fracture (Acute) Greater tuberosity of humerus fracture (Acute) GERD (gastroesophageal reflux disease) (Chronic) Obstructive sleep apnea (Chronic) Acute pain of left shoulder due to trauma (Acute) Debility (Acute) Right shoulder pain (Acute) Multilevel spinal canal stenosis (Chronic) Intractable low back pain (Chronic) Hypothyroidism (Chronic) Anxiety (Chronic) Depression (Chronic) - Requirements and Reasons Disciplines Needed/Ordered: Physical Therapy Reason for Disciplines: Gait Training, Stair Training, Fall Prevention, Home Safety/Equipment Instruction, Balance and/or Posture Training, Transfer Training Related To: Change in Medical Treatment Plan, Limited/Poor Endurance, Physical Impairments, Unsteady Gait/Balance, Fall Risk Patient is unable to leave the home: Without Aid of Supportive Devices (crutches, cane, wheelchair, walker), Without the assistance of another person - Additional Disciplines Additional Disciplines Needed/Ordered: Occupational Therapy
--- NOTE | 2018-11-22 00:13 | NURSING ---
Addendum entered by Lexi Lopez 11/22/18 09:08: Dr Carrion updated, new order for debrox gtts. Original Note: Pt ears flushed with warm water. Slight cerucem discoloration noted to irrigated water. Pt reports when he goes to the doctor to have his ears cleaned there is usually a substantial amount of wax removed from ears. Pt tolerated procedure well. Pt denied pain. Will update Dr Carrion.
[2018-11-22] MEDS: Loratadine 10 MG Tablet PO (09:40)
[2018-11-22] MEDS: Citalopram 20 MG Tablet PO (09:40)
[2018-11-22] MEDS: oxyCODONE 5 MG Tablet 10 MG PO ×3 (09:40→19:39)
[2018-11-22] MEDS: prednisoLONE eye drops (5 mL) 1 DROP OPTH.BTL 1 DRP RIGHT EYE ×2 (09:41→14:33)
[2018-11-22] MEDS: Enoxaparin 40 MG/0.4 ML Syringe SC (09:41)
[2018-11-22] MEDS: Pantoprazole Sodium 20 MG Tablet PO (09:42)
[2018-11-22] MEDS: Levothyroxine 175 MCG Tablet PO (09:42)
[2018-11-22] MEDS: Senna/Docusate Sodium 1 Tablet 2 TABLET PO ×2 (09:42→14:34)
[2018-11-22] MEDS: Baclofen 10 MG Tablet 20 MG PO (10:58)
[2018-11-22] MEDS: Carbamide Peroxide 15 ML Bottle 5 DRP OTIC (14:29)
--- NOTE | 2018-11-22 14:44 | MDS.RN ---
Pain interview for gonzales 11/23/18 completed.
--- NOTE | 2018-11-22 15:05 | NURSING ---
Ears flushed with moderate amount wax removed.
[2018-11-22 15:18] VITALS: BP 121/63; PULSE 62; RESP 18; TEMP 37.3; O2SAT 98
[2018-11-23] MEDS: Calcium Carbonate 500 MG Tablet PO (02:00)
[2018-11-23] MEDS: Carbamide Peroxide 15 ML Bottle 5 DRP OTIC (08:03)
[2018-11-23] MEDS: Loratadine 10 MG Tablet PO (08:04)
[2018-11-23] MEDS: Senna/Docusate Sodium 1 Tablet 2 TABLET PO ×2 (08:04→16:46)
[2018-11-23] MEDS: Enoxaparin 40 MG/0.4 ML Syringe SC (08:04)
[2018-11-23] MEDS: Citalopram 20 MG Tablet PO (08:04)
[2018-11-23] MEDS: Levothyroxine 175 MCG Tablet PO (08:05)
[2018-11-23] MEDS: Pantoprazole Sodium 20 MG Tablet PO (08:05)
[2018-11-23] MEDS: prednisoLONE eye drops (5 mL) 1 DROP OPTH.BTL 1 DRP RIGHT EYE ×2 (08:06→16:46)
[2018-11-23] MEDS: oxyCODONE 5 MG Tablet 10 MG PO ×2 (10:22→14:59)
[2018-11-23 15:09] VITALS: BP 135/64; PULSE 67; RESP 18; TEMP 36.6; O2SAT 97
--- NOTE | 2018-11-23 18:05 | NURSING ---
R' DISCHARGED AT THIS TIME WITH DAUGHTER. DISCHARGE INSTRUCTIONS REVIEWED. OXYIR SCRIPT GIVEN. F/U APPTS REVIEWED. R' UNDERSTANDS INSTRUCTIONS, NO QUESTIONS. EYE DROPS RETURNED TO R'. NO QUESTIONS/CONCERNS.
--- NOTE | 2018-11-29 13:22 | MDS.RN ---
Information for the mds was obtained from review of the clinical record, interview of resident, staff, and direct observation of resident's care.
== END 2018-11-23 18:07 | disposition home health service (06) | DRG 561 ==
PROVIDERS: Admitting Provider Family Medicine Geriatric Medicine; Family Provider Family Medicine; PCP Family Medicine; Referring Provider Family Medicine Geriatric Medicine; Visit Provider Family Medicine Geriatric Medicine
DX: S42.255D Nondisplaced fracture of greater tuberosity of left humerus, subsequent encounter for fracture with routine healing (principal); W19.XXXD Unspecified fall, subsequent encounter; G80.9 Cerebral palsy, unspecified; K21.9 Gastro-esophageal reflux disease without esophagitis; G47.33 Obstructive sleep apnea (adult) (pediatric); E03.9 Hypothyroidism, unspecified; F41.9 Anxiety disorder, unspecified; F32.9 Major depressive disorder, single episode, unspecified; F17.210 Nicotine dependence, cigarettes, uncomplicated; M48.00 Spinal stenosis, site unspecified
CPT/HCPCS: 36415; 80048; 82962; 85025; 97110; 97116; 97162; 97166; 97530; 97535; 97802

== ENCOUNTER 2018-11-14 11:04 | Day surgery (SDC) | payer MEDICARE, MEDICAID, SELFPAY ==
[2018-11-14 11:18] VITALS: BP 103/55; PULSE 51; RESP 16; TEMP 36.6; O2SAT 98; BMI 37.9
--- NOTE | 2018-11-14 12:00 | RAD_ITS ---
STUDY: X-RAY - LUMBAR SPINE REASON FOR EXAM: Male, 53 years old. Intraprocedural documentation images of lumbar epidural block. TECHNIQUE: A single frontal digital intraoperative view(s) of the lumbar spine were obtained. COMPARISON: None FINDINGS: A single frontal digital documentation image shows a needle at L5-S1 with contrast. RAD/Spine 1 View Any Level IMPRESSION: Documentation view as described. Electronically Signed: Ayo Sapp MD at 17:20 EDT , Service support ,
[2018-11-14] MEDS: Triamcinolone Acetonide 40 MG/ML Vial (12:23)
[2018-11-14 12:32] VITALS: BP 103/55; BP 123/76; PULSE 63; RESP 16; TEMP 37.3; O2SAT 95
[2018-11-14 12:37] VITALS: BP 103/55; BP 124/75; PULSE 55; RESP 16; O2SAT 96
[2018-11-14 12:42] VITALS: BP 103/55; BP 115/75; PULSE 51; RESP 16; O2SAT 93
[2018-11-14 12:47] VITALS: BP 103/55; BP 116/76; PULSE 52; RESP 16; TEMP 36.6; O2SAT 95
== END 2018-11-14 12:55 | disposition skilled nursing facility (03) ==
LOC: SDC 11:06 → AC 11:07
PROVIDERS: Anesthesiology Pain Medicine; Family Provider Family Medicine; PCP Family Medicine; Referring Provider Urology; Visit Provider Urology
PROC: 3E0S3BZ Introduction of Anesthetic Agent into Epidural Space, Percutaneous Approach (ICD-10-PCS; CPT 62322; principal; 2018-11-14 11:55)
DX: M54.17 Radiculopathy, lumbosacral region (principal); M54.16 Radiculopathy, lumbar region; M48.061 Spinal stenosis, lumbar region without neurogenic claudication; M51.36 Other intervertebral disc degeneration, lumbar region; M51.37 Other intervertebral disc degeneration, lumbosacral region; M54.5 Low back pain; R53.81 Other malaise; F32.9 Major depressive disorder, single episode, unspecified; E03.9 Hypothyroidism, unspecified; J30.9 Allergic rhinitis, unspecified; K21.9 Gastro-esophageal reflux disease without esophagitis; G80.9 Cerebral palsy, unspecified; G47.33 Obstructive sleep apnea (adult) (pediatric); F41.9 Anxiety disorder, unspecified
CPT/HCPCS: 62322; 64483; 72020; J7120

== ENCOUNTER 2019-02-04 21:32 | Emergency (ER) | payer MEDICARE, SELFPAY ==
[2019-02-04 21:33] VITALS: BP 147/87; PULSE 67; RESP 16; TEMP 36.9; O2SAT 98; BMI 35.7
--- NOTE | 2019-02-04 23:31 | RAD_ITS ---
STUDY: X-RAY - LEFT SHOULDER REASON FOR EXAM: Male, 53 years old. Shoulder pain TECHNIQUE: 4 view(s) of the shoulder. COMPARISON: None. FINDINGS: Normal glenohumeral articulation. Normal acromioclavicular joint. Normal acromion. Normal humeral head and visualized proximal humerus. The soft tissue structures are unremarkable. No calcific tendinitis or bursitis Normal visualized pulmonary apex. RAD/Shoulder min 2 Views IMPRESSION: Normal x-ray examination of the shoulder. No fracture. No calcific tendinitis or bursitis. Electronically Signed: Duarte Slaughter MD at 0:01 EDT Tel , Service support ,
--- NOTE | 2019-02-04 23:33 | ED.VISSUMM ---
- ER Visit Summary Date of Service: 02/04/19 Chief Complaint: Back pain, shoulder pain History of Present Illness: The patient is a 53 M who presents with left shoulder pain and lower back pain. He has chronic back pain. He is also had chronic shoulder pain. He has a history of fracture back in August. He complains of increased pain over the last 2 weeks. He states he really been having increased pain ever since he ran out of his pain medication. He complains of his lower back pain is burning. It worse with certain positions such as turning or twisting. He complains of numbness in the bilateral legs in the knees down in a stocking distribution. He states that he has been losing control of my bowel and bladder. When asked to clarify the states over the last 2 months he has had about 4 episodes of urinary or fecal incontinence. No abdominal pain. No fevers. Physical Examination: Afebrile vitals unremarkable No distress Moist mucous membranes Heart regular rate and rhythm Lungs are clear Abdomen soft nontender Normal rectal tone Sensation intact to light touch, normal sensation light touch bilateral lower extremities, 5 out of 5 dorsiflexion, plantarflexion, extensor hallucis longus Test Results: Postvoid residual 97. Left shoulder x-ray normal. Emergency Department Course and Treatment: X-ray normal. Although the patient reports loss of bowel or bladder control this is occurred 4 times over 2 months and currently he has normal strength intact sensation normal rectal tone and no urinary retention. He does not meet criteria for emergent imaging. He was advised to follow-up as an outpatient. He understands to return for new or worsening symptoms. Was given a prescription for short course of Percocet for acute pain control. Treatment Plan: [] Disposition: Discharge Impression: Chronic back pain Left shoulder pain This note was generated with Opicosation software. It may contain incorrect words, spelling, and punctuation that were not noted in review of the chart prior to signing ED Disposition - Plan for ED Patient: Referrals: Sai Cobian MD [Primary Care Provider] -
[2019-02-05] MEDS: oxyCODONE 5 MG Tablet PO (00:01)
[2019-02-05 00:07] VITALS: BP 128/84; PULSE 54; RESP 18; O2SAT 97
--- NOTE | 2019-02-05 00:30 | ED.DEP ---
ED Disposition - Plan for ED Patient: Instructions: Shoulder Sprain, BACK PAIN (Acute or Chronic) Prescriptions: Oxycodone HCl/Acetaminophen [Percocet 5/325] 1 tab PO Q6H PRN PRN 3 Days #12 tab PRN Reason: Pain Prescription Printed Referrals: Sai Cobian MD [Primary Care Provider] -
--- NOTE | 2019-02-05 19:05 | CM.ED ---
Social Work Patient called into the Emergency Department asking to speak with someone about setting up help within the home. Patient stating to not be doing well at home and to be unable to clean the home or manage meals. Patient stating to have food to eat but not healthy food. Patient stating to be in pain and to want to know what it will take to be able to get admitted to the hospital for three days so patient can go to a [facility] for therapy. This social human services assistants educating patient that patient would need to qualify for a three day stay in the hospital in order to stay for three days. Patient believes to be sicker then last time and to not understand why the ED doctor sent patient home last evening. This social human services assistants inquiring about supports for patient within the community. Patient states to be living with patient son, that does nothing for patient. Patient stating that son has ADHD and is unable to assist with helping patient. This social human services assistants inquiring about physical/occupational therapy within the home, patient stating to have therapy at home prior and that this was no good. This social human services assistants inquiring about patient medicaid. Patient stating to not be sure if patient has medicaid any longer. This social human services assistants encouraging patient to contact [facility] [employer] [facility] to inquire about Medicaid application and then possibly waiver under Medicaid, patient plans to contact [facility] family services tomorrow. Patient stating to not be able to afford help within the home or to pay for an extended care facility. Patient is not wanting to go to a [facility] long-term, just for therapy. Patient reporting to be connected with pain management. This social human services assistants encouraging patient to contact patient management in regards to pain. Patient stating that pain management has not been working and patient is planning to change providers. Patient currently active with Dr. Bagley and plans to change to Dr. Eric. Patient stating to have an appointment with Dr. Eric for [id number]. This social human services assistants continuing to encourage patient to contact pain management about pain. Support provided. Many options and resources explored with patient. Patient reluctant to engage in conversation exploring resources in the community, patient asked this social human services assistants multiple times throughout conversation what patient could do to get admitted to the hospital. Patient is planning to contact [facility] tomorrow morning. Sandy BILLY, ARMEN
--- NOTE | 2019-02-06 16:29 | ED.RN ---
PT CALLED ASKING TO TALK WITH SOMEONE REGARDING HOME HEALTH AND HELP TAKING CARE OF HIM AT HOME. PT STATES HE WAS TOLD ON DC FROM ER SOMEONE WOULD CALL HIM BUT HAD NOT. PT WAS ENCOURAGED TO F/U WITH HIS PCP REGARDING HIS CHRONIC BACK PAIN. HE STATED HE WAS UNABLE TO CARE FOR HIMSELF AND HIS DAUGHTER HAD BORROWED GIS CAR SO HIS TRANSPORTATION WAS LIMITED. HIS INFORMATION WAS OBTAINED TO PASS ON TO [facility]. CALL W PT WAS ENDED. WENT AND TALKED TO SW AND THEY LOOKED INTO THE SITUATION FINDING THE PT HAD BEEN CONTACTED AND FURTHER INFORMATION WAS GIVEN TO ASSIST THE PT. I THEN CONTACTED THE PT AGAIN AND REAFFIRMED WHAT SW HAD ENCOURAGED THE PT TO DO. PT'S CONCERNS THEN WERE NOT TO GET HELP BUT TO BE ADMITTED. PROVIDED THE NUMBERS FOR THE PT TO F/U [facility] HAD PROVIDED. PT STATED THEY WOULD PROBABLY NOT HELP HIM AND STATED HE WOULD BE BACK IN THE ER TONIGHT. SW WAS NOTIFIED OF THE CONVERSATION THAT TRANSPIRED FOR FUTURE CARE.
== END 2019-02-05 00:54 | disposition home or self-care (01) ==
PROVIDERS: Emergency Provider Emergency Medicine; Family Provider Family Medicine; PCP Family Medicine
DX: M54.5 Low back pain (principal); M25.512 Pain in left shoulder; G89.29 Other chronic pain; G80.9 Cerebral palsy, unspecified; E03.9 Hypothyroidism, unspecified; Z79.899 Other long term (current) drug therapy; Z72.0 Tobacco use
CPT/HCPCS: 73030; 99282

== ENCOUNTER 2019-02-09 17:28 | Emergency (ER) | payer MEDICARE, SELFPAY ==
[2019-02-08 09:20] VITALS: BMI 35.7
[2019-02-09 17:29] VITALS: BP 132/83; PULSE 68; RESP 18; O2SAT 98
[2019-02-09 17:30] VITALS: BP 132/83; PULSE 70; RESP 20; TEMP 37; O2SAT 97; BMI 39.2
[2019-02-09] MEDS: oxyCODONE 5 MG Tablet 10 MG PO (17:55)
--- NOTE | 2019-02-09 18:02 | CM.ED ---
Social Work Consult: Resources/Placement Informant: Dr. Posadas Met with patient in room. This social services assistant familiar with patient and had a recent discussion with patient about contacting [employer] [facility] about waiver program. Patient stating to have attempted to contact [facility] and to have left a voicemail and to have not received a return phone call at this time. Patient stating that things are not going well at home. This social services assistant exploring other options for patient such as assisted living, aides in the home. Patient is not interested in assisted living setting and wants to be admitted to the hospital in order to get a three day stay so patient is able to be admitted to a assisted facility. This social services assistant explaining that there needs to be a reason for patient to be admitted before patient is able to be obtain a three day qualifying stay. Patient expressing frustrations and wanting to know what happens to other patients that are not doing well at home. This social services assistant informing patient that not doing well at home is not a reason for in inpatient hospital stay. Patient reporting to have daughters that live local but are unable to help. Patient son also lives with patient but is currently out of town for another week. Patient reluctant follow up with any connection to services stating to only want to be admitted. Patient also stating to be unable to afford [facility]. Patient stating to have only [place] Medicaid. This social services assistant unable to make any forward progress with patient and the conversation continued to go in a circular motion for some time. This social services assistant offered support. This social services assistant updating Dr. Posadas on above madhuri. Sandy Johnston BEHAVIORAL HEALTH DIRECTOR, [place]
--- NOTE | 2019-02-09 19:35 | ED.VIS.GEN ---
History of Present Illness Chief Complaint: Back Informant: Patient Onset: Month(s) Timing: Continuous Current Severity: Moderate Maximum Severity: Moderate Narrative: Patient presents with chronic back pain that is worse. He was seen recently and discharged home he is in pain management thus he did not fill any of his pain medications, he tells me he is not in significant pain but it is very difficult for him to get around his house he can barely walk around and has difficulty performing his ADLs. He has no radiation of his pain to his back, he has no bowel or bladder compromise he has no abdominal pain. He has no fever or chills. Past Medical History - Allergies and Home Meds Allergies/Adverse Reactions: Allergies No Known Allergies Allergy (Verified 02/04/19 21:35) Primary Care Physician: Sai Cobian MD [Primary Care Provider] - Past Medical History: - - Prior back pain, otherwise noncontributory Surgical History: tonsillectomy, - - Bilateral hand surgery for trigger finger. Smoking Status: Current every day smoker - Family History Maternal Family History: Reports: Diabetes, - Paternal Family History: Reports: - Review of Systems General: Denies: Chills, Fever, Sweats Cardiovascular: Denies: Chest pain, Palpitations Respiratory: Denies: Dyspnea, Cough, Dyspnea on exertion Gastrointestinal: Denies: Abdominal pain, Nausea, Vomiting, Diarrhea, Melena, Hematochezia Genitourinary: Denies: Dysuria, Hematuria, Frequency Musculoskeletal: Reports: Back pain. Denies: Neck pain, Extremity Pain Skin: Denies: Rash, Wounds Neurological: Denies: Headache, Weakness, Numbness Physical Exam Vital Signs/Narrative: Vital Signs Temp Pulse Resp BP Pulse Ox 02/09/19 17:30 98.6 F 70 20 H 132/83 H 97 02/09/19 17:29 68 18 132/83 H 98 General: Well nourished. Negative for: Acute Distress ENT: Moist mucous membranes Cardiovascular: Regular rate, Regular rhythm Respiratory: No distress, CTA bilaterally Abdomen: Soft, Nontender Back: - - Spinal tenderness in the lumbar region diffusely throughout there is some paraspinal tenderness also Extremities: Nontender, No edema Skin: Normal color Neurological: Normal Strength, Normal Sensation, Normal DTR - Normal plantarflexion and dorsiflexion of both feet and great toes Diagnostic/Tx/Re-eval - Medical Decision Making Patient is given analgesics in the emergency department. I discussed the patient with social work, we are unable to get him to rehab facility right now, he is afraid of going home because he will fall he cannot perform his ADLs very well, I told him he does not meet criteria for admission and this would be an observation. He will be observed and get physical therapy in the morning and hopefully neonatal intensive care unit nurse. Disposition admit for hospital observation. Patient is stable ED Disposition - Plan for ED Patient: Disposition: Home or Assisted Living Diagnosis: Back pain Referrals: Sai Cobian MD [Primary Care Provider] -
--- NOTE | 2019-02-09 19:44 | PCM.HP.STD ---
History of Present Illness The patient is a 53 year old M [] Past Medical History Past Medical History (Chronic Problems): Chronic Problems Cerebral palsy (Chronic) GERD (gastroesophageal reflux disease) (Chronic) Obstructive sleep apnea (Chronic) Multilevel spinal canal stenosis (Chronic) Intractable low back pain (Chronic) Hypothyroidism (Chronic) Anxiety (Chronic) Depression (Chronic) Allergies No Known Allergies Allergy (Verified 02/04/19 21:35) Home Medications: Ambulatory Orders Medication Instructions Recorded Levothyroxine [Synthroid] 175 mcg PO DAILY 05/21/16 Calcium Carbonate [Tums] 500 mg PO Q6H PRN PRN tablet 11/01/18 Citalopram [Celexa] 20 mg PO DAILY 11/02/18 prednisoLONE eye drops (5 mL) 1 drop RIGHT EYE 0800,1800 11/21/18 [Pred Forte eye drops (5 mL)] opth.btl Omeprazole [Prilosec] 20 mg PO DAILY 02/05/19 Surgical History: tonsillectomy, - - Bilateral hand surgery for trigger finger. Psychiatric History: Anxiety, Depression Smoking Status: Current every day smoker - *Family History Maternal History Items: Diabetes, - Paternal History Items: - Patient Problems: Active and Suspected Problems Back pain (Acute) - Physical Exam Vital Signs Temp Pulse Resp BP Pulse Ox 98.6 F 70 20 H 132/83 H 97 02/09/19 17:30 02/09/19 17:30 02/09/19 17:30 02/09/19 17:30 02/09/19 17:30 Oxygen Delivery Method Room Air Weight: 107 kg Body Mass Index (BMI) 39.2 Assessment/Plan All Active Problems Left shoulder pain (Acute) Shoulder fracture, left (Acute) Left humeral fracture (Acute) Back pain (Acute) Greater tuberosity of humerus fracture (Acute) Acute pain of left shoulder due to trauma (Acute) Debility (Acute) Right shoulder pain (Acute)
[2019-02-09 19:56] LABS: Absolute Lymphocyte Count 1.62 X10^3/uL (0.83-4.51); Absolute Neutrophil Count 8.2 X10^3/uL (2.0-7.7); Basophil# 0.03 X10^3/uL; Basophil% 0.3 % (0-1); Eosinophil# 0.13 X10^3/uL; Eosinophils% 1.2 % (0-5); Hematocrit 45.6 % (40-54); Hemoglobin 15.4 g/dL (13.0-16.5); Lymphocyte # 1.62 X10^3/ul (4.0); Lymphocyte % 14.9 % (19-41); Mean Corp Hgb Conc 33.8 g/dL (32-36); Mean Corpuscular Hgb 31.4 pg (27.0-32.0); Mean Corpuscular Volume 93.1 fL (80-94); Mean Platelet Vol. 10.3 fl (6.2-12.0); Monocyte# 0.83 X10^3/uL; Monocyte% 7.7 % (0-10); NRBC Flagged by Analyzer 0 % (0-5); Neutrophil # 8.17 X10^3/uL (2.7-7.7); Neutrophil % 75.3 % (47-70); Platelet Count 213 K/mm3 (150-450); RBC Distribution Width CV 14.6 % (11.6-14.6); RBC Distribution Width SD 50.8 fl (35.1-43.9); White Blood Count 10.8 K/mm3 (4.4-11.0)
[2019-02-09 20:13] LABS: ALB/GLOB Ratio 0.9 RATIO (0.9-2.4); AST(SGOT) 21 U/L (15-37); Alanine Aminotransfer ALT/SGPT 48 U/L (16-61); Albumin, Serum 3.4 g/dL (3.2-5.0); Alkaline Phosphatase 106 U/L (45-117); Anion Gap 3 (5-15); BUN 9 mg/dL (7-18); BUN/Creat Ratio 8.5 RATIO (10-20); Calcium,Total 8.8 mg/dL (8.5-10.1); Chloride 108 mmol/L (98-107); Creatinine, Serum 1.06 mg/dL (0.70-1.30); EST Glomerular Filtration Rate 78 mL/min (>60); Est Glom Filt Rate - Afr Amer 95 mL/min (>60); Estimated Creatinine Clearance 71.72 ml/min; Globulin 3.8 g/dL (2.2-4.2); Glucose 99 mg/dL (74-106); Potassium 3.7 mmol/L (3.5-5.1); Protein, Total 7.2 g/dL (6.4-8.2); Sodium Level 138 mmol/L (136-145)
[2019-02-09] MEDS: Ondansetron 4 MG/2 ML Vial IV (22:05)
[2019-02-09] MEDS: Morphine 4 MG/ML Syringe IV (22:05)
[2019-02-09 22:07] VITALS: BP 136/84; PULSE 63; RESP 16; O2SAT 96
[2019-02-09 22:20] VITALS: BP 136/84; PULSE 63; RESP 16; O2SAT 96
== END 2019-02-09 22:46 | disposition home or self-care (01) ==
LOC: ED 19:40 → MS3 20:23
PROVIDERS: Emergency Provider Emergency Medicine; Family Provider Family Medicine; PCP Family Medicine
DX: M54.9 Dorsalgia, unspecified (principal); F17.200 Nicotine dependence, unspecified, uncomplicated; G89.29 Other chronic pain
CPT/HCPCS: 80053; 85025; 99285; A4216; J2405

== ENCOUNTER 2020-02-04 09:11 | Emergency (ER) | payer MEDICARE, SELFPAY ==
[2020-02-04 09:12] VITALS: BP 143/92; PULSE 63; RESP 16; TEMP 36.3; O2SAT 96; O2SAT 97; BMI 36.6
--- NOTE | 2020-02-04 09:27 | EKG12_ITS ---
Test Reason : SOB Blood Pressure : / mmHG Vent. Rate : 057 BPM Atrial Rate : 057 BPM P-R Int : 126 ms QRS Dur : 084 ms QT Int : 444 ms P-R-T Axes : -24 073 070 degrees QTc Int : 432 ms Sinus bradycardia T wave abnormality, consider anterior ischemia Abnormal ECG Confirmed by SUKHJINDER AREVALO, LISA ([id number]), editor greeting card RENARD WILSON ([id number]) on 02/07/2020 9:07:33 AM Referred By: Confirmed By:ELLEN SLAUGHTER MD
--- NOTE | 2020-02-04 09:28 | ED.DCSUM_ITS ---
History of Present Illness Chief Complaint: Shortness of Breath Informant: Patient Narrative: Patient is a 54-year-old male with a past medical history of cerebral palsy, hypothyroidism, rheumatoid arthritis who presents to the emerge department for shortness of breath. Denies any associated chest pain with this. His symptoms have been present over the past week. He states that he feels like it is worse at nighttime. Does not necessarily related to lying down flat. Whenever he walks this does make it slightly worse. He has had a very minimal cough but denies any coughing fits. Denies any fevers or chills. No known sick contacts. Denies any swelling or pain in his cast. No history of heart attacks, strokes or DVT/PE. He is a current every day smoker. Denies any history of COPD or asthma. Denies any abdominal pain or nausea/vomiting. No change in bowel habits. Past Medical History - Allergies and Home Meds Allergies/Adverse Reactions: Allergies No Known Allergies Allergy (Verified 02/04/20 09:14) Primary Care Physician: Sai Cobian MD [Primary Care Provider] - Prior records reviewed: Yes Past Medical History: - - Cerebral palsy, hypothyroidism, RA, anxiety/depression Surgical History: tonsillectomy, - - Bilateral hand surgery for trigger finger. Smoking Status: Current every day smoker - Family History Maternal Family History: Reports: Diabetes, - Paternal Family History: Reports: - Review of Systems All systems negative except as indicated General: Denies: Chills, Fever, Sweats Eyes: Denies: Visual changes - bilaterally, Diplopia ENT: Denies: Rhinorrhea, Sore throat Cardiovascular: Denies: Chest pain, Palpitations Respiratory: Reports: Dyspnea, Cough, Dyspnea on exertion Gastrointestinal: Denies: Abdominal pain, Nausea, Vomiting, Diarrhea, Melena, Hematochezia Genitourinary: Denies: Dysuria, Hematuria, Frequency Musculoskeletal: Denies: Back pain, Extremity Pain Skin: Denies: Rash, Wounds Neurological: Denies: Headache, Weakness, Numbness Physical Exam Vital Signs/Narrative: Vital Signs Temp Pulse Resp BP Pulse Ox 02/04/20 09:12 97.3 F L 63 16 143/92 H 97 Inital Vital Signs reviewed: Yes General: Well nourished, Well developed, No Acute Distress Head: Normocephalic, Atraumatic Eyes: Perrl, EOMI ENT: Moist mucous membranes, No rhinorrhea Neck: Supple, Nontender Cardiovascular: Regular rate, Regular rhythm, No murmurs, - - 2+ radial pulse bilateral Respiratory: No distress, CTA bilaterally, Chest nontender Abdomen: Soft, Nontender, Nondistended, Normal bowel sounds Back: Nontender, Normal Inspection Extremities: Nontender, No edema. Negative for: Edema, Calf Tenderness Skin: Normal color, No rash Neurological: Alert, Oriented x3, Cranial nerves II-XII grossly intact, Normal Strength, Normal Sensation Psychological: Normal affect, Normal Mood Diagnostic/Tx/Re-eval - EKG Initial EKG Interpretation: - - Rate of 57 bpm in sinus rhythm. Normal intervals. Normal axis. There are T wave inversions in the anterior leads. No ST elevations or depressions appreciated. Prior EKG for comparison was performed on September 07, 2018 which had the similar T wave appearance. - Medical Decision Making Patient presents to the emergency department for shortness of breath. No associated chest pain. Has had a very minimal cough. Will do cardiac work-up along with chest x-ray. Vital signs upon arrival are within normal limits. Physical exam is benign. Patient's work-up did not reveal any significant acute abnormalities. No consolidation seen on x-ray. No significant volume overload. He is not anemic. Troponin within normal limits. Went into reevaluate the patient. He has been satting in the high 90s on room air throughout ED stay. Has been relatively asymptomatic. Not been hypoxic or tachycardic. No risk factors for DVT/PE. Low concern for this. Low Concern for ACS. He states that he believes it might be due to anxiety. He has been having some trouble at home as son left and is worried about his daughter. He feels like this could be contributing to his symptoms. He is requesting an albuterol prescription and I will write for 1. He does need to have close follow-up with his PCP. If he develops any chest pa in or worsening shortness of breath he is to return to the emergency department immediately. He understands and is agreeable this plan. Will discharge home in stable condition. ED Disposition - Plan for ED Patient: Disposition: Home or Assisted Living Diagnosis: Dyspnea Instructions: ED Dyspnea Prescriptions: Albuterol Inhaler [Ventolin Hfa] 1 - 2 puff INHALATION Q4H PRN PRN #1 inhaler PRN Reason: Wheezing Transmission Status: Pending to [id number] Referrals: Sai Cobian MD [Primary Care Provider] - 2 Days
--- NOTE | 2020-02-04 09:31 | RAD_ITS ---
STUDY: X-RAY CHEST REASON FOR EXAM: Male, 54 years old. SHORTNESS OF BREATH X 1 WK TECHNIQUE: Single AP portable view of the chest. COMPARISON: Comparison is made with prior examination dated September 07, 2018. FINDINGS: EKG electrodes are seen. Stable increased markings in the lingular segment of the left upper lobe. Blunting of the left costophrenic angle. Normal size heart. Normal mediastinum and cachorro. Normal visualized pulmonary arteries. Normal visualized aortic arch and descending thoracic aorta. There are degenerative changes of the visualized thoracic spine. Normal visualized ribs, clavicles, and shoulders. There is no demonstrated abnormality of the visualized soft tissue structures of the upper abdomen. RAD/Chest 1 View (Portable) IMPRESSION: Stable increased markings in the lingular segment of the left upper lobe suggestive of scarring. Electronically Signed: Ronnell Garcia, at 11:12 EDT , Service support ,
[2020-02-04 10:19] LABS: Basophil# 0.04 X10^3/uL; Basophil% 0.4 % (0-1); Eosinophils% 0.9 % (0-5); Hematocrit 45.5 % (40-54); Hemoglobin 15.4 g/dL (13.0-16.5); Lymphocyte % 15.5 % (19-41); Mean Corp Hgb Conc 33.8 g/dL (32-36); Mean Corpuscular Hgb 32.4 pg (27.0-32.0); Mean Corpuscular Volume 95.8 fL (80-94); Mean Platelet Vol. 10.5 fl (6.2-12.0); Monocyte% 9.1 % (0-10); NRBC Flagged by Analyzer 0 % (0-5); Neutrophil # 8.02 X10^3/uL (2.7-7.7); Neutrophil % 73.4 % (47-70); Platelet Count 204 K/mm3 (150-450); RBC Distribution Width CV 12.8 % (11.6-14.6); RBC Distribution Width SD 44.7 fl (35.1-43.9); Red Blood Count 4.75 M/mm3 (4.6-6.2); White Blood Count 10.9 K/mm3 (4.4-11.0)
[2020-02-04 10:21] VITALS: BP 141/87; PULSE 57; RESP 18; O2SAT 96
[2020-02-04 10:40] LABS: Anion Gap 5 (5-15); BUN 11 mg/dL (7-18); BUN/Creat Ratio 10.4 RATIO (10-20); Calcium,Total 8.5 mg/dL (8.5-10.1); Chloride 101 mmol/L (98-107); Creatinine, Serum 1.06 mg/dL (0.70-1.30); EST Glomerular Filtration Rate 78 mL/min (>60); Est Glom Filt Rate - Afr Amer 94 mL/min (>60); Estimated Creatinine Clearance 70.91 ml/min; Glucose 111 mg/dL (74-106); Magnesium 2.3 mg/dL (1.6-2.6); Potassium 3.9 mmol/L (3.5-5.1); Sodium Level 135 mmol/L (136-145)
[2020-02-04 12:43] VITALS: BP 133/86; PULSE 52; RESP 18; O2SAT 97; O2SAT 98
== END 2020-02-04 13:01 | disposition home or self-care (01) ==
PROVIDERS: Emergency Provider Emergency Medicine; PCP Family Medicine
DX: R06.09 Other forms of dyspnea (principal); R06.02 Shortness of breath; E03.9 Hypothyroidism, unspecified; F32.9 Major depressive disorder, single episode, unspecified; F41.9 Anxiety disorder, unspecified; G80.9 Cerebral palsy, unspecified; M06.9 Rheumatoid arthritis, unspecified; F17.200 Nicotine dependence, unspecified, uncomplicated
CPT/HCPCS: 71045; 80048; 83735; 84484; 85025; 87635; 93005; 99284; A4216; U0003

== ENCOUNTER 2020-10-06 08:00 | Outpatient (RCR) | payer MEDICARE, SELFPAY ==
[2020-10-06] MEDS: COVID-19 VACC, MRNA(PFIZER)/PF 30 MCG/0.3 ML SYRINGE IM (19:04)
[2020-10-27] MEDS: COVID-19 VACC, MRNA(PFIZER)/PF 30 MCG/0.3 ML SYRINGE IM (18:43)
== END 2020-12-29 23:59 ==
LOC: IMMUN 08:00
PROVIDERS: PCP Family Medicine; Visit Provider Family Medicine
DX: Z23 Encounter for immunization (principal)
CPT/HCPCS: 0001A; 0002A; 91300

== ENCOUNTER 2020-11-22 21:09 | Emergency (ER) | payer MEDICARE, MEDICAID, SELFPAY ==
[2020-11-22 21:10] VITALS: BP 140/91; PULSE 76; RESP 18; TEMP 36.3; O2SAT 95; BMI 37.4
--- NOTE | 2020-11-22 22:12 | EX.ED.DYSGE1 ---
HPI Narrative Narrative: Patient stated he has daily anxiety that is chronic. He is requesting something to help him with anxiety for short period of time until he follow-up with the counseling center. He drinks alcohol daily to cope with his anxiety. He stated he is no longer wants to drink alcohol daily. He does not want detox at this time inpatient. He stated he denies any suicidal or homicidal ideation. His friend brought him here tonight. His last drink was earlier today. Stated he was on anxiety chronically in the past but has been off it for 3 years. Stated he has generalized anxiety attacks and wants them to stop. PFSH PFSH Home Medications levothyroxine 200 mcg PO DAILY 05/21/16 [History Last Taken 10/13/18 17:00 175 mcg] calcium carbonate 500 mg PO Q6H PRN PRN tablet 11/01/18 [Rx Last Taken Unknown] citalopram 40 mg PO DAILY 11/02/18 [History Last Taken Unknown] omeprazole 20 mg PO DAILY 02/05/19 [History Last Taken Unknown] albuterol sulfate 1 - 2 puff INHALATION Q4H PRN PRN #1 inhaler 02/04/20 [Rx Last Taken Unknown] baclofen 10 mg PO TID PRN PRN 11/22/20 [History Last Taken Unknown] Allergy/AdvReac Type Severity Reaction Status Date / Time No Known Allergies Allergy Verified 11/22/20 21:11 Social History Smoking Status: Current every day smoker ROS ROS ED ROS Narrative ROS General: Denies fever, chills, sweats Eyes: Denies visual changes, blurred vision, double vision ENT: Denies ear pain, rhinorrhea, sore throat Cardiovascular: Denies chest pain, palpitations, heart racing Respiratory: Denies dyspnea, cough, sputum, dyspnea on exertion, orthopnea,PND GI: Denies abdominal pain, nausea, vomiting, diarrhea, constipation, melena : Denies dysuria, hematuria, frequency Musculoskeletal: Denies myalgias, arthralgias, neck pain, back pain Skin: Denies rash, abscess, abrasions Neuro: Denies headache, weakness, paresthesia Psych: See HPI Endo: Denies polyuria, polydipsia, polyphagia Heme: Denies easy bruising, easy bleeding, lymphadenopathy Allergy: Denies hives, swelling EXAM Physical Exam Narrative Exam Narrative: Vital signs reviewed General: Well-nourished well-developed Head: Normocephalic atraumatic Eyes: Pupils equal round and reactive to light extraocular movements intact ENT: TMs clear no hemotympanum no trauma Neck: Nontender full range of motion Cardiovascular: Regular rate rhythm no murmurs normal S1-S2 Respiratory: No distress clear to auscultation bilaterally chest nontender Abdomen: Soft nontender nondistended normal bowel sounds no masses Back: Nontender no CVA tenderness Extremities: Nontender active range of motion ?4 extremities no trauma Skin: Normal color no trauma Neuro alert oriented cranial nerves II through XII intact normal strength sensation reflexes Const Vital Signs: 11/22/20 21:10 Temperature 97.4 F L Temperature Source Temporal Pulse Rate 76 Respiratory Rate 18 Blood Pressure 140/91 H Blood Pressure Mean 107 Pulse Ox 95 Oxygen Delivery Method Room Air MDM MDM MDM Narrative Medical decision making narrative: Patient resting comfortably. Given 1 dose of Ativan in the emergency department a short prescription for Ativan for an outpatient and referral to the counseling center. At this time I feel this is a chronic problem. Understands he cannot keep coming to the emergency department for anxiety however. We will follow-up as an outpatient. Discharge Plan Triage ED Provider: Karan Liang Dx/Rx/DC Orders Prescriptions: No Action levothyroxine 175 MCG tablet 200 mcg PO DAILY RF: 0 calcium carbonate 500 MG tablet 500 mg PO Q6H PRN PRN (Reason: Indigestion) RF: 0 citalopram 20 MG tablet 40 mg PO DAILY RF: 0 omeprazole 20 MG capsule 20 mg PO DAILY RF: 0 albuterol sulfate 1 INHALER inhaler 1 - 2 puff inhalation Q4H PRN PRN (Reason: Wheezing) Qty: 1 RF: 0 baclofen 10 mg tablet 10 mg PO TID PRN PRN (Reason: Muscle Spasm) RF: 0 Primary Care Provider: Sai Cobian
[2020-11-22] MEDS: LORazepam 1 MG Tablet PO (22:25)
== END 2020-11-22 22:39 | disposition home or self-care (01) ==
PROVIDERS: Emergency Provider Emergency Medicine; PCP Family Medicine
DX: F41.9 Anxiety disorder, unspecified (principal); F17.200 Nicotine dependence, unspecified, uncomplicated
CPT/HCPCS: 99283

== ENCOUNTER 2020-11-28 02:45 | Inpatient (IN) | payer MEDICARE, SELFPAY ==
[2020-11-28] VITALS (15 sets, daily range): BP systolic 142–156; BP diastolic 76–104; PULSE 70–81; RESP 14–35; TEMP 36.1–36.9; O2SAT 80–99; BMI 42.7; BMI 41.3
--- NOTE | 2020-11-28 03:30 | EDS_ITS ---
HPI History of Present Illness Chief Complaint: Anxiety Narrative Narrative: This is a 55-year-old male who presents with chief complaint of anxiety. He states I have a whole bunch of anxiety and was having difficulty sleeping tonight. He was recently seen in the emergency department. He was advised to follow-up with the counseling center. He was given a prescription for Ativan which he states is not really working. He also takes Celexa. He is not suicidal. He denies recent medical illness. PFSH PFSH Home Medications levothyroxine 200 mcg PO DAILY 05/21/16 [History Last Taken 10/13/18 17:00 175 mcg] calcium carbonate 500 mg PO Q6H PRN PRN tablet 11/01/18 [Rx Last Taken Unknown] citalopram 40 mg PO DAILY 11/02/18 [History Last Taken Unknown] omeprazole 20 mg PO DAILY 02/05/19 [History Last Taken Unknown] albuterol sulfate 1 - 2 puff INHALATION Q4H PRN PRN #1 inhaler 02/04/20 [Rx Last Taken Unknown] baclofen 10 mg PO TID PRN PRN 11/22/20 [History Last Taken Unknown] lorazepam [Ativan] 1 mg PO DAILY PRN #10 tab 11/22/20 [Rx Last Taken Unknown] Allergy/AdvReac Type Severity Reaction Status Date / Time No Known Allergies Allergy Verified 11/28/20 02:50 Social History Smoking Status: Current every day smoker ROS ROS ED Constitutional Constitutional ED: Denies fever(s) Eyes Eyes: Denies change in vision Cardiovascular Cardiovascular: Denies chest pain Respiratory/Chest Respiratory/Chest: Denies dyspnea Gastrointestinal Gastrointestinal: Denies diarrhea or vomiting Musculoskeletal Musculoskeletal: Denies arthralgias or myalgias Integumentary Denies rash Psychiatric Psychiatric: Reports anxiety EXAM Physical Exam Const Vital Signs: 11/28/20 02:47 Temperature 97 F L Temperature Source Temporal Pulse Rate 70 Respiratory Rate 16 Blood Pressure 156/104 H Blood Pressure Mean 121 Pulse Ox 96 Positive well nourished HEENT Reports moist mucous membranes Eyes EOMs intact bilaterally Neck supple Chest Wall inspection of chest normal Resp normal respiratory effort and clear to auscultation bilaterally Cardio regular rhythm GI Palpation: soft Neuro Sensorium / Orientation: alert Psych Mood & Affect: anxious Skin no rashes or lesions noted MDM MDM MDM Narrative Medical decision making narrative: Patient was given a dose of Vistaril here. I advised that I have little else to offer from the emergency department given that his anxiety has been a chronic issue and he is already on Celexa and Ativan. I recommended that he contact the counseling center soon as possible for follow-up. I advised that he likely needs his maintenance medications adju sted as well as counseling. Patient discharged. Discharge Plan Triage Chief Complaint: Anxiety ED Provider: Sebastian Cline Dx/Rx/DC Orders Clinical Impression: Anxiety Instructions: ED Anxiety Reaction Prescriptions: No Action levothyroxine 175 MCG tablet 200 mcg PO DAILY RF: 0 calcium carbonate 500 MG tablet 500 mg PO Q6H PRN PRN (Reason: Indigestion) RF: 0 citalopram 20 MG tablet 40 mg PO DAILY RF: 0 omeprazole 20 MG capsule 20 mg PO DAILY RF: 0 albuterol sulfate 1 INHALER inhaler 1 - 2 puff inhalation Q4H PRN PRN (Reason: Wheezing) Qty: 1 RF: 0 baclofen 10 mg tablet 10 mg PO TID PRN PRN (Reason: Muscle Spasm) RF: 0 lorazepam [Ativan] 1 mg tablet 1 mg PO DAILY PRN (Reason: anxiety) Qty: 10 RF: 0 Primary Care Provider: Sai Cobian Referrals: Sai Cobian MD [Primary Care Provider] - Disposition Disposition: Home, self care
[2020-11-28] MEDS: hydrOXYzine PAM 25 MG Capsule PO (03:54)
[2020-11-28 04:37] LABS: Absolute Lymphocyte Count 1.47 X10^3/uL (0.83-4.51); Basophil# 0.06 X10^3/uL; Basophil% 0.6 % (0-1); Eosinophil# 0.43 X10^3/uL; Eosinophils% 4.5 % (0-5); Hematocrit 45.4 % (40-54); Hemoglobin 15.8 g/dL (13.0-16.5); Lymphocyte # 1.47 X10^3/ul (0.83-4.51); Lymphocyte % 15.3 % (19-41); Mean Corp Hgb Conc 34.8 g/dL (32-36); Mean Corpuscular Hgb 34.1 pg (27.0-32.0); Mean Corpuscular Volume 98.1 fL (80-94); Mean Platelet Vol. 9.5 fl (6.2-12.0); Monocyte# 0.62 X10^3/uL; Monocyte% 6.4 % (0-10); NRBC Flagged by Analyzer 0 % (0-5); Neutrophil # 6.95 X10^3/uL (2.7-7.7); Neutrophil % 72.3 % (47-70); Platelet Count 210 K/mm3 (150-450); RBC Distribution Width CV 14.6 % (11.6-14.6); RBC Distribution Width SD 52.7 fl (35.1-43.9); Red Blood Count 4.63 M/mm3 (4.6-6.2); White Blood Count 9.6 K/mm3 (4.4-11.0)
[2020-11-28 04:56] LABS: ALB/GLOB Ratio 0.9 RATIO (0.9-2.4); AST(SGOT) 155 U/L (15-37); Alanine Aminotransfer ALT/SGPT 167 U/L (16-61); Albumin, Serum 3.5 g/dL (3.2-5.0); Alkaline Phosphatase 147 U/L (45-117); Anion Gap 10 (5-15); BUN 4 mg/dL (7-18); Calcium,Total 8.2 mg/dL (8.5-10.1); Chloride 95 mmol/L (98-107); EST Glomerular Filtration Rate 107 mL/min (>60); Est Glom Filt Rate - Afr Amer 129 mL/min (>60); Estimated Creatinine Clearance 92.89 ml/min; Glucose 98 mg/dL (74-106); Potassium 3.5 mmol/L (3.5-5.1); Protein, Total 7.5 g/dL (6.4-8.2); Sodium Level 130 mmol/L (136-145)
[2020-11-28 05:17] LABS: Amphetamine Urine VISTA NEGATIVE (<1000 ng/mL); Barbiturate Urine VISTA NEGATIVE (< 200 ng/mL); Benzodiazepine Urine VISTA NEGATIVE (< 200 ng/mL); Cocaine Urine VISTA NEGATIVE (< 300 ng/mL); Ecstacy Urine VISTA NEGATIVE (< 500 ng/mL); Methadone Urine VISTA NEGATIVE (< 300 ng/mL); PCP Urine VISTA NEGATIVE (< 25 ng/mL); THC Urine VISTA NEGATIVE (< 50 ng/mL); Vista UDS pH Range 7
--- NOTE | 2020-11-28 06:23 | HP.PCM.HOS_ITS ---
HPI - General General Date of Admission: 11/28/20 Chief Complaint: Desire for detoxification HPI Narrative GOOD RUBIO, is a 55 M with a significant history of depression and anxiety; and hypothyroidism who presents for detoxification. Initially patient reported that he was here for anxiety although he has Ativan at home. At the point of discharge patient then said that he wants detoxification from alcohol. Reportedly he drinks about half a bottle of rum daily. Last time he drank was an hour before presentation. Stated with symptoms is tremors. He reported that he sees a counselor at the counseling center. Of note patient was admitted department also on 11/22/2020 for anxiety and was given Ativan. [facility] Home Medications levothyroxine 200 mcg PO DAILY 05/21/16 [History Last Taken 10/13/18 17:00 175 mcg] calcium carbonate 500 mg PO Q6H PRN PRN tablet 11/01/18 [Rx Last Taken Unknown] citalopram 40 mg PO DAILY 11/02/18 [History Last Taken Unknown] omeprazole 20 mg PO DAILY 02/05/19 [History Last Taken Unknown] albuterol sulfate 1 - 2 puff INHALATION Q4H PRN PRN #1 inhaler 02/04/20 [Rx Last Taken Unknown] baclofen 10 mg PO TID PRN PRN 11/22/20 [History Last Taken Unknown] lorazepam [Ativan] 1 mg PO DAILY PRN #10 tab 11/22/20 [Rx Last Taken Unknown] Allergy/AdvReac Type Severity Reaction Status Date / Time No Known Allergies Allergy Verified 11/28/20 02:50 Family History Other Diabetes Surgical History (Updated 11/28/20 @ 06:[address] Sunday Bansal MD) H/O hand surgery Social History Smoking Status: Current every day smoker ROS ROS Narrative 12 point review of system is negative except as stated in HPI Vital Signs Vital Signs Vital Signs: 11/28/20 02:47 11/28/20 04:42 Temperature 97 F L 98 F Temperature Source Temporal Oral Pulse Rate 70 75 Respiratory Rate 16 18 Blood Pressure 156/104 H 148/97 H Blood Pressure Mean 121 114 Blood Pressure Source Monitor Blood Pressure Position Supine Blood Pressure Location Right Arm Pulse Ox 96 99 Oxygen Delivery Method Room Air Physical Exam Narrative Alert and oriented x3 Nontraumatic; normocephalic Lung clear to auscultate Heart sounds S1-S2. No murmur, gallop or rubs. Abdomen bowel sounds present soft, nontender nondistended Extremity without edema cyanosis or clubbing. Lab / Micro Data Result Diagrams: 11/28/20 04:30 11/28/20 04:30 Labs: Laboratory Results - last 24 hr 11/28/20 11/28/20 11/28/20 04:30 04:30 04:30 WBC 9.6 RBC 4.63 Hgb 15.8 Hct 45.4 MCV 98.1 H MCH 34.1 H MCHC 34.8 RDW Std Deviation 52.7 H RDW Coeff of Ras 14.6 Plt Count 210 MPV 9.5 Immature Gran % (Auto) 0.900 Neut % (Auto) 72.3 H Lymph % (Auto) 15.3 L [place] % (Auto) 6.4 Eos % (Auto) 4.5 Baso % (Auto) 0.6 Absolute Neuts (auto) 7.0 Absolute Lymphs (auto) 1.47 Nucleated RBC % 0 Sodium 130 L Potassium 3.5 Chloride 95 L Carbon Dioxide 25.0 Anion Gap 10 BUN 4 L Creatinine 0.80 Estim Creat Clear Calc 92.89 Est GFR (MDRD) Af Amer 129 Est GFR (MDRD) Non-Af 107 BUN/Creatinine Ratio 5.0 L Glucose 98 Calcium 8.2 L Total Bilirubin 0.60 AST 155 H ALT 167 H Alkaline Phosphatase 147 H Total Protein 7.5 Albumin 3.5 Globulin 4.0 Albumin/Globulin Ratio 0.9 Urine Opiates Screen Urine Methadone Screen Ur Barbiturates Screen Ur Phencyclidine Scrn Ur Amphetamines Screen U Methamphetamin-MDMA U Benzodiazepines Scrn Urine Cocaine Screen U Cannabinoids Screen Ur Drug Screen Comment Ethyl Alcohol 166.0 11/28/20 04:55 WBC RBC Hgb Hct MCV MCH MCHC RDW Std Deviation RDW Coeff of Ras Plt Count MPV Immature Gran % (Auto) Neut % (Auto) Lymph % (Auto) [place] % (Auto) Eos % (Auto) Baso % (Auto) Absolute Neuts (auto) Absolute Lymphs (auto) Nucleated RBC % Sodium Potassium Chloride Carbon Dioxide Anion Gap BUN Creatinine Estim Creat Clear Calc Est GFR (MDRD) Af Amer Est GFR (MDRD) Non-Af BUN/Creatinine Ratio Glucose Calcium Total Bilirubin AST ALT Alkaline Phosphatase Total Protein Albumin Globulin Albumin/Globulin Ratio Urine Opiates Screen NEGATIVE Urine Methadone Screen NEGATIVE Ur Barbiturates Screen NEGATIVE Ur Phencyclidine Scrn NEGATIVE Ur Amphetamines Screen NEGATIVE U Methamphetamin-MDMA NEGATIVE U Benzodiazepines Scrn NEGATIVE Urine Cocaine Screen NEGATIVE U Cannabinoids Screen NEGATIVE Ur Drug Screen Comment Ethyl Alcohol Assessment & Plan Assessment/Plan (1) Alcoholism: (2) Anxiety: (3) Depression: QUALIFIERS: Depression Type: unspecified Qualified Code(s): F32.9 - Major depressive disorder, single episode, unspecified (4) Tobacco abuse: PLAN: The patient is a year old 55 M with a significant history of alcoholism; and tobacco abuse who presents emergency department with alcohol withdrawal symptoms and desire for detoxification Alcohol dependence and desire for detoxification Patient be started on phenobarbital and other adjunctive medications: Gabapentin as needed; dicyclomine as needed; Vistaril as needed; methocarbamol as needed; Imodium as needed; trazodone as needed; Zofran as needed; scheduled thiamine; and schedule folic acid. Monitor CIWA score Anxiety and depression Continue home citalopram Check TSH in the setting of hypothyroidism Hypothyroidism Check TSH Continue Synthroid. Tobacco abuse Counseled Declined nicotine patch DVT prophylaxis: Scd ordered Multi Select Codes Visit Charges Visit Charges: 23825 Init Hosp L3
[2020-11-28] MEDS: LORazepam 2 MG/ML Syringe IV (06:33)
[2020-11-28] MEDS: Phenobarbital 32.4 MG Tablet PO ×5 (07:44→23:32)
[2020-11-28] MEDS: Gabapentin 300 MG Capsule PO ×2 (07:44→18:33)
[2020-11-28] MEDS: Folic Acid 1 MG Tablet PO (07:45)
[2020-11-28] MEDS: Pantoprazole Sodium 20 MG Tablet PO (07:45)
[2020-11-28] MEDS: Citalopram 40 MG TABLET PO (07:45)
[2020-11-28] MEDS: Thiamine Hydrochloride 100 MG Tablet PO (07:45)
--- NOTE | 2020-11-28 10:43 | CASEMGMT ---
SW Note Referral Source: Self Referral Reason for Referral: [facility] admission SW called Louise at [facility]. Louise, the 24 Hour Treatment Navigator, reports she was aware of patient's admission to the RAMP program. KIZZY will continue to follow as needed.
[2020-11-28] MEDS: Loperamide 2 MG Capsule PO ×2 (10:45→15:33)
[2020-11-28] MEDS: Dicyclomine 10 MG Capsule 20 MG PO (10:45)
[2020-11-28] MEDS: LORazepam 1 MG Tablet 2 MG PO ×3 (10:46→18:33)
--- NOTE | 2020-11-28 12:32 | PN.HOSP_ITS ---
Subjective Subjective: Patient seen and examined. He has been managed for acute alcohol withdrawal. Patient complains of severe anxiety which he states is ongoing. He denies any tremors, cramps, lightheadedness or dizziness. Review of symptoms otherwise negative. He has remained hemodynamically stable. Objective Data Objective Data Vital Signs: Vital Signs Temp Pulse Resp BP Pulse Ox 98.5 F 76 34 H 152/92 H 97 11/28/20 11:00 11/28/20 11:46 11/28/20 11:46 11/28/20 11:00 11/28/20 11:46 Oxygen Delivery Method Room Air Weight: 248 lb 10.903 oz Body Mass Index (BMI) 41.3 Lab / Micro Data Result Diagrams: 11/28/20 04:30 11/28/20 04:30 Labs: Laboratory Results - last 24 hr 11/28/20 11/28/20 11/28/20 04:30 04:30 04:30 WBC 9.6 RBC 4.63 Hgb 15.8 Hct 45.4 MCV 98.1 H MCH 34.1 H MCHC 34.8 RDW Std Deviation 52.7 H RDW Coeff of Ras 14.6 Plt Count 210 MPV 9.5 Immature Gran % (Auto) 0.900 Neut % (Auto) 72.3 H Lymph % (Auto) 15.3 L [place] % (Auto) 6.4 Eos % (Auto) 4.5 Baso % (Auto) 0.6 Absolute Neuts (auto) 7.0 Absolute Lymphs (auto) 1.47 Nucleated RBC % 0 Sodium 130 L Potassium 3.5 Chloride 95 L Carbon Dioxide 25.0 Anion Gap 10 BUN 4 L Creatinine 0.80 Estim Creat Clear Calc 92.89 Est GFR (MDRD) Af Amer 129 Est GFR (MDRD) Non-Af 107 BUN/Creatinine Ratio 5.0 L Glucose 98 Calcium 8.2 L Total Bilirubin 0.60 AST 155 H ALT 167 H Alkaline Phosphatase 147 H Total Protein 7.5 Albumin 3.5 Globulin 4.0 Albumin/Globulin Ratio 0.9 Urine Opiates Screen Urine Methadone Screen Ur Barbiturates Screen Ur Phencyclidine Scrn Ur Amphetamines Screen U Methamphetamin-MDMA U Benzodiazepines Scrn Urine Cocaine Screen U Cannabinoids Screen Ur Drug Screen Comment Ethyl Alcohol 166.0 11/28/20 04:55 WBC RBC Hgb Hct MCV MCH MCHC RDW Std Deviation RDW Coeff of Ras Plt Count MPV Immature Gran % (Auto) Neut % (Auto) Lymph % (Auto) [place] % (Auto) Eos % (Auto) Baso % (Auto) Absolute Neuts (auto) Absolute Lymphs (auto) Nucleated RBC % Sodium Potassium Chloride Carbon Dioxide Anion Gap BUN Creatinine Estim Creat Clear Calc Est GFR (MDRD) Af Amer Est GFR (MDRD) Non-Af BUN/Creatinine Ratio Glucose Calcium Total Bilirubin AST ALT Alkaline Phosphatase Total Protein Albumin Globulin Albumin/Globulin Ratio Urine Opiates Screen NEGATIVE Urine Methadone Screen NEGATIVE Ur Barbiturates Screen NEGATIVE Ur Phencyclidine Scrn NEGATIVE Ur Amphetamines Screen NEGATIVE U Methamphetamin-MDMA NEGATIVE U Benzodiazepines Scrn NEGATIVE Urine Cocaine Screen NEGATIVE U Cannabinoids Screen NEGATIVE Ur Drug Screen Comment Ethyl Alcohol Physical Exam Const alert, oriented x3 and no apparent distress Exam Limitations: no limitations Nutritional Appearance: overweight HEENT head/scalp atraumatic and moist oral mucous membranes Head and Scalp: normocephalic Eyes PERRL, EOMs intact bilaterally and conjunctivae normal Neck no lymphadenopathy Resp Resp Narrative: diminished breath sounds bilaterally. Has few rales in all lung [place] Cardio regular rate, regular rhythm, S1 normal heart sound, S2 normal heart sound and no murmurs GI normal to inspection, nondistended, normoactive bowel sounds, soft to palpation, non-tender and non-distended Extremity normal to inspection and full ROM Skin no rashes or lesions noted Neuro oriented x3 and moves all extremities Sensorium / Orientation: awake and alert Psych Mood & Affect: anxious Assessment & Plan Assessment/Plan (1) Alcoholism: (2) Alcohol withdrawal delirium, acute, mixed level of activity: (3) Depression: QUALIFIERS: Depression Type: unspecified Qualified Code(s): F32.9 - Major depressive disorder, single episode, unspecified (4) Anxiety: (5) Hypothyroidism: (6) Intractable low back pain: (7) GERD (gastroesophageal reflux disease): (8) Obstructive sleep apnea: PLAN: #Acute alcohol withdrawal * On alcohol withdrawal protocol with phenobarbital * monitor CIWA score * On thiamine, folic acid and Multivite * #Severe anxiety and depression: On citalopram. Lorazepam added on #Hypothyroidism: On Synthroid #Chronic back pain: On baclofen #Obstructive sleep apnea: On CPAP nightly Nicotine dependence: Refused nicotine patch. Counseled to quit. DVT prophylaxis: Low risk. Encouraged to ambulate.
[2020-11-28] MEDS: Nystatin Powder 15gm Bottle 1 APPLIC TOPICAL ×2 (15:36→20:33)
--- NOTE | 2020-11-28 20:13 | CPS ---
Patient's home CPAP was setup at the bedside. Patient pulse ox when asleep on room air was 83%. Was placed on home CPAP of 7 for JODEE.
[2020-11-29] VITALS (8 sets, daily range): BP systolic 108–157; BP diastolic 66–98; PULSE 75–85; RESP 18–20; TEMP 36.5–37; O2SAT 94–97
[2020-11-29] MEDS: Dicyclomine 10 MG Capsule 20 MG PO (02:07)
[2020-11-29] MEDS: hydrOXYzine PAM 25 MG Capsule 50 MG PO ×2 (02:08→20:05)
[2020-11-29] MEDS: Phenobarbital 32.4 MG Tablet PO ×6 (02:08→23:29)
[2020-11-29] MEDS: Ondansetron 8 MG Tablet PO (02:08)
[2020-11-29] MEDS: Levothyroxine 100 MCG Tablet 200 MCG PO (06:33)
[2020-11-29] MEDS: Nystatin Powder 15gm Bottle 1 APPLIC TOPICAL ×2 (07:41→20:05)
[2020-11-29] MEDS: Pantoprazole Sodium 20 MG Tablet PO (07:42)
[2020-11-29] MEDS: Thiamine Hydrochloride 100 MG Tablet PO (07:42)
[2020-11-29] MEDS: Citalopram 40 MG TABLET PO (07:42)
[2020-11-29] MEDS: Folic Acid 1 MG Tablet PO (07:42)
[2020-11-29] MEDS: Gabapentin 300 MG Capsule PO ×2 (07:46→18:08)
[2020-11-29] MEDS: LORazepam 1 MG Tablet 2 MG PO ×3 (11:36→18:08)
--- NOTE | 2020-11-29 14:29 | PN.HOSP_ITS ---
Subjective Subjective: Patient seen and examined. He still complains of anxiety. He otherwise had an uneventful night and review of systems otherwise negative. He has remained hemodynamically stable. Objective Data Objective Data Vital Signs: Vital Signs Temp Pulse Resp BP Pulse Ox 98.4 F 83 18 134/87 H 96 11/29/20 14:00 11/29/20 14:00 11/29/20 14:00 11/29/20 14:00 11/29/20 14:00 Oxygen Flow Rate (L/min) 2 Oxygen Delivery Method Room Air Weight: 248 lb 10.903 oz Body Mass Index (BMI) 41.3 Intake & Output: Intake and Output for Last 24 Hours 11/27/20 11/28/20 11/29/20 23:59 23:59 23:59 Intake Total 375 / 375 350 / 350 Output Total 1100 / 1100 350 / 350 Balance -725 / -725 0 / 0 Lab / Micro Data Result Diagrams: 11/28/20 04:30 11/28/20 04:30 Labs: Laboratory Results - last 24 hr 11/28/20 04:30 TSH 15.90 H Physical Exam Narrative Alert and oriented x3 Nontraumatic; normocephalic Lung clear to auscultate Heart sounds S1-S2. No murmur, gallop or rubs. Abdomen bowel sounds present soft, nontender nondistended Extremity without edema cyanosis or clubbing. Const alert, oriented x3 and no apparent distress Exam Limitations: no limitations Nutritional Appearance: overweight HEENT head/scalp atraumatic and moist oral mucous membranes Eyes PERRL, EOMs intact bilaterally and conjunctivae normal Neck no lymphadenopathy Resp Resp Narrative: diminished breath sounds bilaterally. Has few rales in all lung [place]illas Cardio regular rate, regular rhythm, S1 normal heart sound, S2 normal heart sound and no murmurs GI normal to inspection, nondistended, normoactive bowel sounds, soft to palpation, non-tender and non-distended Extremity normal to inspection and full ROM Skin no rashes or lesions noted Neuro oriented x3 and moves all extremities Sensorium / Orientation: awake and alert Psych Mood & Affect: anxious Assessment & Plan Assessment/Plan (1) Alcoholism: (2) Alcohol withdrawal delirium, acute, mixed level of activity: (3) Depression: QUALIFIERS: Depression Type: unspecified Qualified Code(s): F32.9 - Major depressive disorder, single episode, unspecified (4) Anxiety: (5) Hypothyroidism: (6) Intractable low back pain: (7) GERD (gastroesophageal reflux disease): (8) Obstructive sleep apnea: PLAN: #Acute alcohol withdrawal * On alcohol withdrawal protocol with phenobarbital * monitor CIWA score * On thiamine, folic acid and Multivite * #Severe anxiety and depression: On citalopram. still complains of anxiety. on lorazepam prn. #Hypothyroidism: On Synthroid #Chronic back pain: On baclofen #Obstructive sleep apnea: On CPAP nightly Nicotine dependence: Refused nicotine patch. Counseled to quit. DVT prophylaxis: Low risk. Encouraged to ambulate. Visit Charges Inpatient E&M: 90883 Subs Hosp L2
[2020-11-30] VITALS (7 sets, daily range): BP systolic 118–148; BP diastolic 67–87; PULSE 65–90; RESP 16–18; TEMP 36.6–37.2; O2SAT 91–97
[2020-11-30] MEDS: Phenobarbital 32.4 MG Tablet PO ×5 (02:54→20:53)
[2020-11-30] MEDS: Gabapentin 300 MG Capsule PO (02:54)
[2020-11-30] MEDS: Levothyroxine 100 MCG Tablet 200 MCG PO (06:13)
[2020-11-30] MEDS: hydrOXYzine PAM 25 MG Capsule 50 MG PO (06:13)
[2020-11-30] MEDS: Folic Acid 1 MG Tablet PO (07:56)
[2020-11-30] MEDS: Thiamine Hydrochloride 100 MG Tablet PO (07:56)
[2020-11-30] MEDS: Citalopram 40 MG TABLET PO (10:04)
[2020-11-30] MEDS: Nystatin Powder 15gm Bottle 1 APPLIC TOPICAL ×2 (10:04→20:54)
[2020-11-30] MEDS: Pantoprazole Sodium 20 MG Tablet PO (10:04)
[2020-11-30] MEDS: LORazepam 1 MG Tablet 2 MG PO ×2 (15:13→20:59)
--- NOTE | 2020-11-30 15:28 | PN.HOSP_ITS ---
Subjective Subjective: Confused. States Snuffleupagus took his CPAP tubing (but did state he was joking). States that he was talking to some people who were not there. Objective Data Objective Data Vital Signs: Vital Signs Temp Pulse Resp BP Pulse Ox 37.0 C 74 16 134/78 H 97 11/30/20 15:06 11/30/20 15:06 11/30/20 15:06 11/30/20 15:06 11/30/20 15:06 Oxygen Flow Rate (L/min) 2 Oxygen Delivery Method Room Air Weight: 112.8 kg Body Mass Index (BMI) 41.3 Intake & Output: Intake and Output for Last 24 Hours 11/28/20 11/29/20 11/30/20 23:59 23:59 23:59 Intake Total 375 / 375 750 / 750 1350 / 1350 Output Total 1100 / 1100 1800 / 1800 625 / 625 Balance -725 / -725 -1050 / -1050 725 / 725 Lab / Micro Data Result Diagrams: 11/28/20 04:30 11/28/20 04:30 Physical Exam Const Constitutional Narrative: unsteady on his feet Orientation / Consciousness: confused HEENT Head and Scalp: normocephalic Eyes PERRL Neck no lymphadenopathy Resp normal respiratory effort and clear to auscultation bilaterally Cardio regular rate, regular rhythm, S1 normal heart sound and S2 normal heart sound GI normal to inspection, nondistended, normoactive bowel sounds, non-tender and non-distended Extremity normal to inspection Assessment & Plan Assessment/Plan (1) Alcoholism: (2) Alcohol withdrawal delirium, acute, mixed level of activity: (3) Depression: QUALIFIERS: Depression Type: unspecified Qualified Code(s): F32.9 - Major depressive disorder, single episode, unspecified (4) Anxiety: (5) Hypothyroidism: (6) Intractable low back pain: (7) GERD (gastroesophageal reflux disease): (8) Obstructive sleep apnea: PLAN: #Acute alcohol withdrawal * ongoing * On alcohol withdrawal protocol with phenobarbital * monitor CIWA score * On thiamine, folic acid and Multivite * PRN lorazepam * if worse, consider ICU transfer and Precedex gtt #Severe anxiety and depression: On citalopram. still complains of anxiety. on lorazepam prn. #Hypothyroidism: On Synthroid #Chronic back pain: On baclofen #Obstructive sleep apnea: On CPAP nightly Nicotine dependence: Refused nicotine patch. Counseled to quit. DVT prophylaxis: Low risk. Encouraged to ambulate. Visit Charges Inpatient E&M: 77605 Subs Hosp L2
[2020-12-01] MEDS: Phenobarbital 32.4 MG Tablet PO ×4 (03:32→21:29)
[2020-12-01 03:36] VITALS: BP 161/97; PULSE 73; RESP 18; TEMP 36.6; O2SAT 99
[2020-12-01] MEDS: Levothyroxine 100 MCG Tablet 200 MCG PO (05:19)
[2020-12-01 08:45] VITALS: BP 150/80; PULSE 70; PULSE 76; RESP 20; TEMP 36.8; O2SAT 94
[2020-12-01] MEDS: Pantoprazole Sodium 20 MG Tablet PO (08:59)
[2020-12-01] MEDS: Nystatin Powder 15gm Bottle 1 APPLIC TOPICAL ×2 (08:59→21:30)
[2020-12-01] MEDS: Citalopram 40 MG TABLET PO (08:59)
[2020-12-01] MEDS: Thiamine Hydrochloride 100 MG Tablet PO (08:59)
[2020-12-01] MEDS: Folic Acid 1 MG Tablet PO (08:59)
[2020-12-01 11:02] VITALS: BP 131/73; PULSE 74; RESP 20; TEMP 37.1; O2SAT 95
[2020-12-01] MEDS: LORazepam 1 MG Tablet 2 MG PO (11:10)
[2020-12-01 15:14] VITALS: BP 124/65; PULSE 78; RESP 20; TEMP 36.5; O2SAT 95
[2020-12-01] MEDS: hydrOXYzine PAM 25 MG Capsule 50 MG PO ×2 (15:25→21:29)
--- NOTE | 2020-12-01 16:26 | PN.HOSP_ITS ---
Subjective Subjective Feels well. Objective Data Objective Data Vital Signs: Vital Signs Temp Pulse Resp BP Pulse Ox 36.5 C L 78 20 H 124/65 H 95 12/01/20 15:14 12/01/20 15:14 12/01/20 15:14 12/01/20 15:14 12/01/20 15:14 Oxygen Flow Rate (L/min) 5 Oxygen Delivery Method Room Air Weight: 112.8 kg Body Mass Index (BMI) 41.3 Intake & Output: Intake and Output for Last 24 Hours 11/29/20 11/30/20 12/01/20 23:59 23:59 23:59 Intake Total 750 / 750 2150 / 2150 Output Total 1800 / 1800 735 / 735 800 / 800 Balance -1050 / -1050 1415 / 1415 -800 / -800 Lab / Micro Data Result Diagrams: 11/28/20 04:30 11/28/20 04:30 Physical Exam Narrative disshevled Const alert and no apparent distress Orientation / Consciousness: confused Exam Limitations: no limitations Neck no lymphadenopathy Resp normal respiratory effort and clear to auscultation bilaterally Cardio regular rate, S1 normal heart sound and S2 normal heart sound GI normal to inspection, nondistended, normoactive bowel sounds, non-tender and non-distended Assessment & Plan Assessment/Plan (1) Alcoholism: (2) Alcohol withdrawal delirium, acute, mixed level of activity: (3) Depression: QUALIFIERS: Depression Type: unspecified Qualified Code(s): F32.9 - Major depressive disorder, single episode, unspecified (4) Anxiety: (5) Hypothyroidism: (6) Intractable low back pain: (7) GERD (gastroesophageal reflux disease): (8) Obstructive sleep apnea: PLAN: #Acute alcohol withdrawal * ongoing, but improved today * On alcohol withdrawal protocol with phenobarbital * monitor CIWA score * On thiamine, folic acid and Multivite * PRN lorazepam #Severe anxiety and depression: On citalopram. still complains of anxiety. on lorazepam prn. #Hypothyroidism: On Synthroid #Chronic back pain: On baclofen #Obstructive sleep apnea: On CPAP nightly Nicotine dependence: Refused nicotine patch. Counseled to quit. DVT prophylaxis: Low risk. Encouraged to ambulate. Visit Charges Inpatient E&M: 26676 Subs Hosp L2
--- NOTE | 2020-12-01 16:46 | CHAPLAIN ---
Type of Pastoral Visit _x__ Initial Visit ___ Follow-up Visit ___ On-call Visit ___ General Patient Visit ___ Spiritual Assessment ___ Family Conference ___ Bereavement ___ Rapid Response ___ Code Blue ___ Other (describe below) Pastoral Care Referral From _x__ Patient ___ Family ___ Nurse ___ Physician ___ Group Teacher ___ Labor Commissioner ___ Other (describe below) Sacrament/Intervention _x__ Active listening ___ Anointing ___ Holiness ___ Bereavement ___ Communion ___ Amarilys exploration ___ _x__ Life review _x__ Prayer ___ Reconciliation ___ Sacrament of Sick _x__ Supportive presence ___ Wedding ___ Other (describe below) Pastoral Comments patient requested to see this middleware developer; pt was seen in previous admissions to this hospital; pt gives update on his health; pt wants to get clean for my kids, grandkids, and for me; pt seeks presence and prayer
[2020-12-01 21:28] VITALS: BP 126/68; PULSE 73; RESP 18; TEMP 36.6; O2SAT 94
[2020-12-01] MEDS: traZODone 100 MG Tablet PO (21:29)
[2020-12-02 03:57] VITALS: BP 114/72; PULSE 71; RESP 18; TEMP 36.6; O2SAT 95
[2020-12-02] MEDS: Phenobarbital 32.4 MG Tablet PO ×2 (03:59→10:41)
[2020-12-02] MEDS: Levothyroxine 100 MCG Tablet 200 MCG PO (04:43)
[2020-12-02 07:34] VITALS: BP 141/91; PULSE 66; RESP 18; TEMP 36.6; O2SAT 96
[2020-12-02 07:35] VITALS: BP 141/91; PULSE 67; RESP 18; TEMP 36.6; O2SAT 96
[2020-12-02] MEDS: Thiamine Hydrochloride 100 MG Tablet PO (07:38)
[2020-12-02] MEDS: Folic Acid 1 MG Tablet PO (07:38)
[2020-12-02] MEDS: Citalopram 40 MG TABLET PO (07:38)
[2020-12-02] MEDS: Nystatin Powder 15gm Bottle 1 APPLIC TOPICAL ×2 (07:39→20:42)
[2020-12-02] MEDS: Pantoprazole Sodium 20 MG Tablet PO (07:39)
[2020-12-02] MEDS: LORazepam 1 MG Tablet 2 MG PO (07:41)
[2020-12-02 07:47] VITALS: O2SAT 96
--- NOTE | 2020-12-02 08:40 | CPS ---
PATIENT WEARS 2L HS BLED INTO CPAP
[2020-12-02 15:00] VITALS: BP 142/86; PULSE 71; RESP 18; TEMP 36.6; O2SAT 94
--- NOTE | 2020-12-02 15:07 | PN.HOSP_ITS ---
Subjective Subjective Feels well. Initially upset that I did not recognize him from 2019. Objective Data Objective Data Vital Signs: Vital Signs Temp Pulse Resp BP Pulse Ox 36.6 C 67 18 141/91 H 96 12/02/20 07:35 12/02/20 07:35 12/02/20 07:35 12/02/20 07:35 12/02/20 07:47 Oxygen Flow Rate (L/min) 5 Oxygen Delivery Method Room Air Weight: 112.8 kg Body Mass Index (BMI) 41.3 Intake & Output: Intake and Output for Last 24 Hours 11/30/20 12/01/20 12/02/20 23:59 23:59 23:59 Intake Total 2150 / 2150 Output Total 735 / 735 800 / 1100 700 / 700 Balance 1415 / 1415 -800 / -1100 -700 / -700 Lab / Micro Data Result Diagrams: 11/28/20 04:30 11/28/20 04:30 Physical Exam Const alert General Appearance: uncooperative Exam Limitations: no limitations HEENT Head and Scalp: normocephalic Eyes PERRL Cardio regular rate, regular rhythm, S1 normal heart sound and S2 normal heart sound GI normal to inspection, nondistended, normoactive bowel sounds, non-tender and non-distended Assessment & Plan Assessment/Plan (1) Alcoholism: (2) Alcohol withdrawal delirium, acute, mixed level of activity: (3) Depression: QUALIFIERS: Depression Type: unspecified Qualified Code(s): F32.9 - Major depressive disorder, single episode, unspecified (4) Anxiety: (5) Hypothyroidism: (6) Intractable low back pain: (7) GERD (gastroesophageal reflux disease): (8) Obstructive sleep apnea: PLAN: #Acute alcohol withdrawal * improving * ongoing, but improved today * On alcohol withdrawal protocol with phenobarbital * monitor CIWA score * On thiamine, folic acid and Multivite * PRN lorazepam #Severe anxiety and depression: On citalopram. still complains of anxiety. on lorazepam prn. #Hypothyroidism: On Synthroid #Chronic back pain: On baclofen #Obstructive sleep apnea: On CPAP nightly Nicotine dependence: Refused nicotine patch. Counseled to quit. DVT prophylaxis: Low risk. Encouraged to ambulate. Reviewed records from 2019 with patient. He states that I missed a shoulder fracture. I reviewed that he had an xray that did not show a fracture, but was seen on an MRI. He states that a patient liason was involved. He was surprised I did not recall the hospitalization. I apologized that I did not see it, but it appears that orthopaedics was involved. Greater than 25 minutes of which greater than 50% of the time was counseling about alcohol withdrawal treatment and reviewing the hospitalization from 2019. Visit Charges Inpatient E&M: 54170 Subs Hosp L2
[2020-12-02] MEDS: Gabapentin 300 MG Capsule PO (15:26)
[2020-12-02 20:22] VITALS: BP 131/85; PULSE 73; RESP 17; TEMP 36.8; O2SAT 94
[2020-12-02] MEDS: traZODone 100 MG Tablet PO (20:42)
[2020-12-02] MEDS: hydrOXYzine PAM 25 MG Capsule 50 MG PO (20:42)
--- NOTE | 2020-12-02 21:10 | NURSING ---
Pt asked RN to call his daughter Barbara for him. States his daughter Cee went to his residence today to pickle processor fresh clothes for him for at discharge and his house mate refused to let her in. Pt states that Barbara has a kumar to the residence and would like her to go over with police to pickle processor his things. Pt and daughter Barbara states this is abnormal behavior for the house mate. This RN called Barbara and told her of the situation pt is concerned about. Pt also is worried that the house mate was supposed to be giving his cat medicine twice a day and is afraid the cat is and this is why the house mate won't allow them entrance. Daughter updated that there is no time set for pt's discharge at this point and hospital will keep her informed as more information becomes available.
[2020-12-03] VITALS (7 sets, daily range): BP systolic 103–146; BP diastolic 63–87; PULSE 70–81; RESP 17–20; TEMP 36.3–37.1; O2SAT 92–98
[2020-12-03] MEDS: Gabapentin 300 MG Capsule PO (06:38)
[2020-12-03] MEDS: Levothyroxine 100 MCG Tablet 200 MCG PO (06:38)
[2020-12-03] MEDS: Pantoprazole Sodium 20 MG Tablet PO (07:39)
[2020-12-03] MEDS: Nystatin Powder 15gm Bottle 1 APPLIC TOPICAL ×2 (07:39→21:26)
[2020-12-03] MEDS: Folic Acid 1 MG Tablet PO (07:39)
[2020-12-03] MEDS: Thiamine Hydrochloride 100 MG Tablet PO (07:39)
[2020-12-03] MEDS: Citalopram 40 MG TABLET PO (07:39)
[2020-12-03] MEDS: hydrOXYzine PAM 25 MG Capsule 50 MG PO (10:25)
[2020-12-03] MEDS: LORazepam 1 MG Tablet 2 MG PO (13:34)
[2020-12-03] MEDS: Fluticasone 0.05% 1 SPRAY NASAL.SRY NASAL ×2 (13:34→21:25)
--- NOTE | 2020-12-03 14:03 | CASEMGMT ---
Addendum entered by Federica Tomlin 12/03/20 14:09: Pt also stated that he is so stressed out right now. Pt states that he lives with a roommate named Kd and Kd doesn't help with cooking, cleaning or laundry. Pt states that they don't talk to each other and they don't hang out. Pt states I am not hung, he is just a roommate. Pt states that he is thinking about kicking out his roommate. SW offered support to pt. Original Note: Social Work Note PT/OT updated this worker that pt was assist of 2, recommendation is SNF placement. Pt has been to TCU before, would be agreeable to going there again. SW placed call to [facility] with TCU, pt is is their do not take list. TCU is not able to accept pt. SW in to speak with pt. SW introduced self and role at [facility]. Pt is alert and orientated. SW spoke with pt regarding SNF placement. PT agreeable to SNF. Patient was provided a list of SNF providers including quality and resource use data and consistent with the patient?s preferred geographic region, medical needs, and insurance network. Pt states he would like to speak to his daughters Barbara and Cee about SNF. SW brought in portable phone and assisted pt with calling his daughters. All in agreement with SNF. Pt states his first choice is [facility] and second choice is [facility]. Pt states he would like to stay in [place] as his family lives in [place]. Pt states he has received both COVID vaccinations with the second one being last month. SW explained referral process and that pt will need pre-cert. Pt states understanding. SW placed a call to Hermelinda at [facility] and left message regarding referral. SW faxed referral. SW updated physician. Plan: SNF pending acceptance and pre-cert Federica Tomlin APPLIANCE TESTER, OVERLAY OPERATOR
--- NOTE | 2020-12-03 15:59 | PN.HOSP_ITS ---
Subjective Subjective Feeling anxious at time. Worried about cerumen impaction in his ear exacerbating his anxiety. Objective Data Objective Data Vital Signs: Vital Signs Temp Pulse Resp BP Pulse Ox 37.1 C 81 18 146/84 H 98 12/03/20 13:30 12/03/20 13:30 12/03/20 13:30 12/03/20 13:30 12/03/20 13:30 Oxygen Flow Rate (L/min) 5 Oxygen Delivery Method Room Air Weight: 112.8 kg Body Mass Index (BMI) 41.3 Intake & Output: Intake and Output for Last 24 Hours 12/01/20 12/02/20 12/03/20 23:59 23:59 23:59 Intake Total 750 / 750 Output Total 800 / 1100 700 / 700 Balance -800 / -1100 -700 / -700 750 / 750 Lab / Micro Data Result Diagrams: 11/28/20 04:30 11/28/20 04:30 Physical Exam Const alert HEENT HEENT Narrative: No evidence of otitis media. Patient does have some redness in his right ear canal but no evidence of otitis externa. No mastoid tenderness bilaterally. Left tympanic membrane and ear canal are unremarkable. No cerumen impaction bilaterally. Head and Scalp: normocephalic Eyes PERRL Resp normal respiratory effort and clear to auscultation bilaterally Cardio regular rate, regular rhythm, S1 normal heart sound and S2 normal heart sound GI normal to inspection, nondistended, normoactive bowel sounds, non-tender and non-distended Skin no rashes or lesions noted Neuro Sensorium / Orientation: awake and alert Assessment & Plan Assessment/Plan (1) Alcoholism: (2) Alcohol withdrawal delirium, acute, mixed level of activity: (3) Depression: QUALIFIERS: Depression Type: unspecified Qualified Code(s): F32.9 - Major depressive disorder, single episode, unspecified (4) Anxiety: (5) Hypothyroidism: (6) Intractable low back pain: (7) GERD (gastroesophageal reflux disease): (8) Obstructive sleep apnea: PLAN: #Acute alcohol withdrawal * improving * ongoing, but improved today * completed phenobarbital * monitor CIWA score * On thiamine, folic acid and Multivite * PRN lorazepam #Severe anxiety and depression: * On citalopram, but maxxed out. * discussed the addiction potential of BZDs * since he is maxxed out on citalopram, with taper off and introduce sertraline. Plan would be 1 week of citalopram 20 and sertraline 25, then stop citalopram and start sertraline 50. Would keep sertraline 50 for 3-4 weeks before any change * advised him to follow up with PCP/psych as outpt #Hypothyroidism: On Synthroid #Chronic back pain: On baclofen #Obstructive sleep apnea: On CPAP nightly Nicotine dependence: Refused nicotine patch. Counseled to quit. DVT prophylaxis: Low risk. Right ear pain. * maybe eustacian tube dysfunction. Start flonoase * No evidence of OM, OE, mastoiditis * Other possibility could be TMJ Deblity * plan for SNF upon discharge Greater than 35minutes of which greater than 50% of the time was counseling about anxiety and Eustachian tube dysfunction. Visit Charges Inpatient E&M: 05487 Subs Hosp L3
--- NOTE | 2020-12-03 16:07 | NURSING ---
PT KNOWS HE IS ON THE BLACK LIST FOR TCU AND DOES NOT UNDERSTAND WHY. REQUESTING TO SPEAK W/PT [employer] (WILFRED Park, FOOD AND BEVERAGE ASSOCIATE LEFT WITH [employer]) AND TO HAVE CAROL DRAKE FROM TCU CALL HIM. THIS NURSE SPOKE WITH CAROL Alvarez, SHE WILL TRY TO CALL PT THIS EVENING OR WILL CALL TOMORROW. PT IS MADE AWARE OF THIS AND STATES HIS APPRECIATION
[2020-12-04 03:17] VITALS: PULSE 68; RESP 18; O2SAT 96
[2020-12-04 04:21] VITALS: BP 125/76; PULSE 63; RESP 18; TEMP 36.3; O2SAT 95
[2020-12-04] MEDS: Levothyroxine 100 MCG Tablet 200 MCG PO (04:30)
[2020-12-04] MEDS: Thiamine Hydrochloride 100 MG Tablet PO (08:49)
[2020-12-04] MEDS: Pantoprazole Sodium 20 MG Tablet PO (08:49)
[2020-12-04] MEDS: Folic Acid 1 MG Tablet PO (08:49)
[2020-12-04] MEDS: Sertraline 50 MG Tablet 25 MG PO (08:49)
[2020-12-04] MEDS: Citalopram 20 MG Tablet PO (08:50)
[2020-12-04] MEDS: Fluticasone 0.05% 1 SPRAY NASAL.SRY NASAL (08:51)
[2020-12-04] MEDS: Nystatin Powder 15gm Bottle 1 APPLIC TOPICAL (08:52)
[2020-12-04] MEDS: hydrOXYzine PAM 25 MG Capsule 50 MG PO ×2 (08:59→17:18)
[2020-12-04] MEDS: Dicyclomine 10 MG Capsule 20 MG PO (08:59)
[2020-12-04 09:01] VITALS: BP 142/74; PULSE 74; RESP 20; TEMP 36.6; O2SAT 96
[2020-12-04 09:32] VITALS: O2SAT 96
--- NOTE | 2020-12-04 10:23 | NURSING ---
Mr. De Luna asked Dr. Choudhury about allowing him to have his phone, valuables and visitors now that he was done with detox. Dr. Choudhury informed Mr. De Luna that it was okay since he was just still here waiting on ECF placement. Chris Davison RN and REBA Vivas Manager also aware. Valuables unlocked and pt now has in his possesion.
--- NOTE | 2020-12-04 10:42 | CASEMGMT ---
Addendum entered by Federica Tomlin 12/04/20 10:43: KIZZY placed a call to Hermelinda at [facility] and left message to disregard referral. Original Note: Social Work Note SW received call from Audrey in TCU stating she spoke with pt about TCU and both Audrey and pt are agreeable to allowing pt to be on TCU pending pre-cert. Audrey states she let Bertha know to submit for pre-cert. KIZZY placed a call to Bertha with TCU, Bertha to submit for pre-cert for TCU. Plan: TCU pending pre-cert Federica Tomlin APPLICATION PACKAGER, HAND ASSEMBLER FOR PULLER OVER
[2020-12-04] MEDS: Gabapentin 300 MG Capsule PO (12:07)
--- NOTE | 2020-12-04 12:39 | PN.HOSP_ITS ---
Subjective Subjective still anxious. popping in right ear, but feeling better. Objective Data Objective Data Vital Signs: Vital Signs Temp Pulse Resp BP Pulse Ox 36.6 C 74 20 H 142/74 H 96 12/04/20 09:01 12/04/20 09:01 12/04/20 09:01 12/04/20 09:01 12/04/20 09:32 Oxygen Flow Rate (L/min) 4 Oxygen Delivery Method Room Air Weight: 112.8 kg Body Mass Index (BMI) 41.3 Intake & Output: Intake and Output for Last 24 Hours 12/02/20 12/03/20 12/04/20 23:59 23:59 23:59 Intake Total 750 / 750 Output Total 700 / 700 Balance -700 / -700 750 / 750 Lab / Micro Data Result Diagrams: 11/28/20 04:30 11/28/20 04:30 Physical Exam Const alert and oriented x3 Neuro Sensorium / Orientation: awake Psych affect normal Assessment & Plan Assessment/Plan (1) Alcoholism: (2) Alcohol withdrawal delirium, acute, mixed level of activity: (3) Depression: QUALIFIERS: Depression Type: unspecified Qualified Code(s): F32.9 - Major depressive disorder, single episode, unspecified (4) Anxiety: (5) Hypothyroidism: (6) Intractable low back pain: (7) GERD (gastroesophageal reflux disease): (8) Obstructive sleep apnea: PLAN: #Acute alcohol withdrawal * improving * ongoing, but improved today * completed phenobarbital * monitor CIWA score * On thiamine, folic acid and Multivite #Severe anxiety and depression: * On citalopram, but maxxed out. * discussed the addiction potential of BZDs * since he is maxxed out on citalopram, with taper off and introduce sertraline. Plan would be 1 week of citalopram 20 and sertraline 25, then stop citalopram and start sertraline 50. Would keep sertraline 50 for 3-4 weeks before any change * advised him to follow up with PCP/psych as outpt #Hypothyroidism: On Synthroid #Chronic back pain: On baclofen #Obstructive sleep apnea: On CPAP nightly Nicotine dependence: Refused nicotine patch. Counseled to quit. DVT prophylaxis: Low risk. Right ear pain. * maybe eustacian tube dysfunction. Start flonoase * No evidence of OM, OE, mastoiditis * Other possibility could be TMJ Deblity * plan for SNF upon discharge. awaiting on insurance authorization. . Visit Charges Inpatient E&M: 00365 Subs Hosp L2
--- NOTE | 2020-12-04 13:29 | CASEMGMT ---
Addendum entered by Federica Tomlin 12/04/20 15:19: KIZZY received call from Bertha with TCU stating pt was approved, can discharge to TCU. Pt will need COVID test. KIZZY updated physician. KIZZY in to speak with pt. Lance Mullins peer support in with pt at this time. KIZZY updated pt that he was approved for TCU and will be discharged there today. Lance asked if he will be able to continue to see pt for peer support while pt is at TCU. SW informed pt and Lance that this worker is not sure, will have to check. KIZZY spoke with Bill Shell who called Audrey with TCU. Lance with [facility] will be allowed to see pt while he is on TCU. KIZZY back in speak with pt. KIZZY updated pt and Lance that Lance will be able to continue to see pt while pt is at TCU. Pt and Lance state understanding. Plan: TCU today Original Note: Social Work Note SW in to speak with pt. KIZZY updated pt that TCU is able to accept pt and pre-cert has been started. Pt states that he kicked his roommate out and states that he will have no one to help him when he returns home. Pt asked what his options will be. KIZZY explained that there will be a SW on TCU who will be able to assist pt with transitioning home but options including home with HHC, Home with outpatient therapy or go could go to a different SNF under Medicaid if pt needs additional help. Pt states he has had HHC in the past and it didn't really do much for him. SW informed pt that he could go over to TCU and do well enough that he doesn't need any additional help when he leaves TCU. Pt asked about differences between [facility] and [facility]. SW explained they are both SNF level of care and that is what insurance looks at. Insurance looks at if pt needs SNF level of care or not and both [facility] and [facility] are SNF. SW explained there would be a financial difference if pt were to be self-pay at [facility] vs [facility] but insurance treats them both as SNF level of care. SW informed pt that [facility] had never gotten back to this worker if they could accept pt or not but [facility] is able to accept and pre-cert was started this morning. Pt states understanding, agreeable to TCU. Pt started crying stating he found out his roommate wasn't taking care of his cat at home. SW asked if his daughters are able to help out his cat and pt states his daughter Barbara will be taking care of the cat. SW offered support to pt. SW informed pt that he will remain at [facility] until pre-cert is obtained for TCU. Pt states undertanding. Plan: TCU pending pre-cert Federica Tomlin MILL HELPER, OFFICE ASSISTANCE
--- NOTE | 2020-12-04 15:15 | TREXTCAR_ITS ---
Diet 11/28/20 06:53 Diet: Regular - General Food consistency:: Regular Liquid Consistency:: Regular/Thin Routine Orders/Code Status Code Status: Full Code Therapies Weight Bearing: Full weight bearing Physical Therapy: Eval and Treat Occupational Therapy: Eval and Treat Problem/Diagnosis (1) Alcoholism: Status: Acute (2) Alcohol withdrawal delirium, acute, mixed level of activity: Status: Acute (3) Depression: Status: Chronic (4) Anxiety: Status: Chronic (5) Hypothyroidism: Status: Chronic (6) Intractable low back pain: Status: Chronic (7) GERD (gastroesophageal reflux disease): Status: Chronic (8) Obstructive sleep apnea: Status: Chronic Allergies/Procedures Done in Hospital Allergies No Known Allergies Allergy (Verified 11/28/20 02:50) Procedures: None Type of Care/Length of Stay Estimated LOS: Convalescent Care Less Than 30 days Type of Care Needed: Skilled Rehab Potential: Fair Prognosis: Fair Additional Orders/Day of Discharge Day of Discharge: 12/04/20 Dietary and Speech Recommendations Dietitian Recommendations/Changes: Continue current diet order- [facility] pt Discharge Plan Admission Admit Date/Time: 11/28/20 06:22 Attending Provider: Davy Choudhury Primary Care Provider: Sai Cobian Instructions Patient Instructions: ED Anxiety Reaction Discharge Orders/Prescriptions Prescriptions: New citalopram 20 mg Tablet 20 mg PO DAILY Qty: 0 RF: 0 levothyroxine 100 mcg Tablet 200 mcg PO DAILY@0600 Qty: 1 RF: 0 fluticasone propionate 50 mcg/actuation [place],Suspension 1 spray NASAL BID Qty: 16 RF: 0 sertraline 50 mg Tablet 25 mg PO DAILY Qty: 0 RF: 0 hydroxyzine pamoate 25 mg Capsule 50 mg PO Q4H PRN PRN (Reason: mild anxiety) Qty: 1 RF: 0 multivitamin Tablet 1 tab PO DAILY Qty: 1 RF: 0 Continued calcium carbonate 500 MG tablet 500 mg PO Q6H PRN PRN (Reason: Indigestion) RF: 0 omeprazole 20 MG capsule 20 mg PO DAILY RF: 0 albuterol sulfate 1 INHALER inhaler 1 - 2 puff inhalation Q4H PRN PRN (Reason: Wheezing) Qty: 1 RF: 0 baclofen 10 mg tablet 10 mg PO TID PRN PRN (Reason: Muscle Spasm) RF: 0 Discontinued levothyroxine 175 MCG tablet 200 mcg PO DAILY RF: 0 citalopram 20 MG tablet 40 mg PO DAILY RF: 0 lorazepam [Ativan] 1 mg tablet 1 mg PO DAILY PRN (Reason: anxiety) Qty: 10 RF: 0 Referrals / Follow Up: Sai Cobian MD [Primary Care Provider] - Within 1 Week Disposition Disposition (needs filled in before D/C Order can be placed): Care Home Facility
[2020-12-04 15:21] VITALS: BP 141/74; PULSE 64; RESP 20; TEMP 36.8; O2SAT 96
--- NOTE | 2020-12-04 15:22 | DS.PCM_ITS ---
Providers Date of Admission: 11/28/20 Primary Care Physician: Dr. Sai Cobian MD Reason For Visit: DESIRE FOR DETOXIFICATION Diagnosis Discharge Diagnosis (1) Alcoholism: Status: Acute Code(s): F10.20 - Alcohol dependence, uncomplicated (2) Alcohol withdrawal delirium, acute, mixed level of activity: Status: Acute Code(s): F10.231 - Alcohol dependence with withdrawal delirium (3) Depression: Status: Chronic Code(s): F32.9 - Major depressive disorder, single episode, unspecified Qualifiers: Depression Type: unspecified Qualified Code(s): F32.9 - Major depressive disorder, single episode, unspecified (4) Anxiety: Status: Chronic Code(s): F41.9 - Anxiety disorder, unspecified (5) Hypothyroidism: Status: Chronic Code(s): E03.9 - Hypothyroidism, unspecified (6) Intractable low back pain: Status: Chronic Code(s): M54.5 - Low back pain (7) GERD (gastroesophageal reflux disease): Status: Chronic Code(s): K21.9 - Gastro-esophageal reflux disease without esophagitis (8) Obstructive sleep apnea: Status: Chronic Code(s): G47.33 - Obstructive sleep apnea (adult) (pediatric) Medications at Discharge Home Medications calcium carbonate 500 mg PO Q6H PRN PRN tablet 11/01/18 omeprazole 20 mg PO DAILY 02/05/19 albuterol sulfate 1 - 2 puff INHALATION Q4H PRN PRN #1 inhaler 02/04/20 baclofen 10 mg PO TID PRN PRN 11/22/20 citalopram 20 mg PO DAILY #0 tab 12/04/20 fluticasone propionate 1 spray NASAL BID #16 g 12/04/20 hydroxyzine pamoate 50 mg PO Q4H PRN PRN #1 cap 12/04/20 levothyroxine 200 mcg PO DAILY@0600 #1 tab 12/04/20 multivitamin 1 tab PO DAILY #1 tab 12/04/20 sertraline 25 mg PO DAILY #0 tab 12/04/20 Hospital Course Summary of Care Provided Minutes Spent on Discharge: 32 Hospital Course: #Acute alcohol withdrawal improving ongoing, but improved today completed phenobarbital monitor CIWA score On thiamine, folic acid and Multivite #Severe anxiety and depression: On citalopram, but maxxed out. discussed the addiction potential of BZDs since he is maxxed out on citalopram, with taper off and introduce sertraline. Plan would be 1 week of citalopram 20 and sertraline 25, then stop citalopram and start sertraline 50. Would keep sertraline 50 for 3-4 weeks before any change advised him to follow up with PCP/psych as outpt #Hypothyroidism: On Synthroid #Chronic back pain: On baclofen #Obstructive sleep apnea: On CPAP nightly Nicotine dependence: Refused nicotine patch. Counseled to quit. DVT prophylaxis: Low risk. Right ear pain. maybe eustacian tube dysfunction. Start flonoase No evidence of OM, OE, mastoiditis Other possibility could be TMJ Deblity plan for SNF upon discharge. awaiting on insurance authorization. ABG / Lab / Microbiology Data Result Diagrams: 11/28/20 04:30 11/28/20 04:30 D/C Instructions Discharge Diet: No restrictions Meaningful Use Info Meaningful Use Diagnoses (Choose all that apply): None applicable Discharge Plan Admission Admit Date/Time: 11/28/20 06:22 Attending Provider: Davy Choudhury Primary Care Provider: Sai Cobian Instructions Patient Instructions: ED Anxiety Reaction Discharge Orders/Prescriptions Prescriptions: New citalopram 20 mg Tablet 20 mg PO DAILY Qty: 0 RF: 0 levothyroxine 100 mcg Tablet 200 mcg PO DAILY@0600 Qty: 1 RF: 0 fluticasone propionate 50 mcg/actuation [place],Suspension 1 spray NASAL BID Qty: 16 RF: 0 sertraline 50 mg Tablet 25 mg PO DAILY Qty: 0 RF: 0 hydroxyzine pamoate 25 mg Capsule 50 mg PO Q4H PRN PRN (Reason: mild anxiety) Qty: 1 RF: 0 multivitamin Tablet 1 tab PO DAILY Qty: 1 RF: 0 Continued calcium carbonate 500 MG tablet 500 mg PO Q6H PRN PRN (Reason: Indigestion) RF: 0 omeprazole 20 MG capsule 20 mg PO DAILY RF: 0 albuterol sulfate 1 INHALER inhaler 1 - 2 puff inhalation Q4H PRN PRN (Reason: Wheezing) Qty: 1 RF: 0 baclofen 10 mg tablet 10 mg PO TID PRN PRN (Reason: Muscle Spasm) RF: 0 Discontinued levothyroxine 175 MCG tablet 200 mcg PO DAILY RF: 0 citalopram 20 MG tablet 40 mg PO DAILY RF: 0 lorazepam [Ativan] 1 mg tablet 1 mg PO DAILY PRN (Reason: anxiety) Qty: 10 RF: 0 Referrals / Follow Up: Sai Cobian MD [Primary Care Provider] - Within 1 Week Disposition Disposition (needs filled in before D/C Order can be placed): [facility] Visit Charges Inpatient E&M: 47080 Disch Hosp
--- NOTE | 2020-12-04 15:40 | NURSING ---
sample sent for covid test for tcu requirements.
--- NOTE | 2020-12-04 17:20 | NURSING ---
Pt states he is having a anxiety attack. spo2 checked d/t SOB, it was 94% on Ra. This nurse talked with him about stressors in his life and what could be causing his anxiety. pt states he has a sick cat at home that roomate was supposed to be taking care of the cat and was not. This nurse gave pt vistaril and pt said, oh I wish i could have ativan just under the tongue. Explained ativan was for detox symptoms and now that he is not detoxicating ativan is not given. pt understands.
--- NOTE | 2020-12-04 18:22 | NURSING ---
Report given to Helen BRITTON in TCU.
== END 2020-12-04 18:37 | disposition skilled nursing facility (03) | DRG 897 ==
LOC: ED 03:42 → MS3 06:43
PROVIDERS: Admitting Provider Hospitalist; Emergency Provider Emergency Medicine; PCP Family Medicine
DX: F10.231 Alcohol dependence with withdrawal delirium (principal); Z68.41 Body mass index [BMI] 40.0-44.9, adult; F32.9 Major depressive disorder, single episode, unspecified; E66.01 Morbid (severe) obesity due to excess calories; F41.1 Generalized anxiety disorder; E03.9 Hypothyroidism, unspecified; M54.5 Low back pain; K21.9 Gastro-esophageal reflux disease without esophagitis; G47.33 Obstructive sleep apnea (adult) (pediatric); F17.200 Nicotine dependence, unspecified, uncomplicated; H92.01 Otalgia, right ear; Y90.6 Blood alcohol level of 120-199 mg/100 ml; G89.29 Other chronic pain; Z79.890 Hormone replacement therapy; Z79.899 Other long term (current) drug therapy; Z83.3 Family history of diabetes mellitus
CPT/HCPCS: 80053; 80307; 82077; 84443; 85025; 87426; 87635; 94660; 94762; 97110; 97162; 97166; 97530; 97535; 99285; A4216; U0002

== ENCOUNTER 2020-12-04 18:56 | Inpatient (IN) | payer MEDICARE, MEDICAID, SELFPAY ==
[2020-11-28 06:53] VITALS: BMI 41.3
--- NOTE | 2020-12-04 20:00 | NURSING ---
Pt calls for assist w/ voiding. Instructed due to concerns w/ safe mobility, will provide urinal. Pt verbalizes frustration with this plan. He is insistent on use of a walker and refuses to use a urinal or BSC. This nurse briefly left pt's room returning within a couple fo minutes and pt was crawling on the floor to the bathroom. An additional staff member assisted this nurse w/ standby/contact guard assist as pt was able to stand up to use the toilet. Initial difficulty starting stream which pt verbalizes is due to anger, then voided clear yellow urine. This nurse and additional staff member explained to pt more than once during conversation that transferring self and crawling to the floor as means of locomotion is not acceptable. Pt must call for staff assist to ensure safety. Becomes increasingly agitated during discussion. Bed alarm applied. Positioned in bed for comfort. Call light w/ in reach.
--- NOTE | 2020-12-04 20:04 | HP.PCM_ITS ---
HPI - General General Date of Admission: 12/04/20 HPI Narrative 11/28/2020 GOOD RUBIO, is a 55 Male who presents to [facility] Emergency Department with anxiety. Whole bunch of anxiety, difficulty sleeping. Ativan not helpful, taking Celexa. Vistaril given, recommend counseling as outpatient. Sodium 130, ALT 155, AST 167, serum alcohol 166. Patient requesting hospitalization for alcohol detox. 11/28/2020 Admit to Hospital. Phenobarbital, Gabapentin, Dicyclomine, Vistaril, Methocarbamol, Imodium, Trazodone, Zofran, Thiamine, Folic acid for alcohol detox. 11/28/2020 Ongoing anxiety. Lorazepam added. Refused nicotine patch for tobacco abuse. 11/29/2020 Anxiety persists. CPAP for obstructive sleep apnea. 11/30/2020 Consider ICU transfer, Precedex drip for alcohol withdrawal. 12/01/2020 Withdrawal improved. 12/03/2020 Finished phenobarbital. Taper off Citalopram, start Sertraline. Flonase for eustachian tube dysfunction. 12/04/2020 Admit to TCU with debility, here for rehabilitation, strengthening, prior to discharge home. [facility] Medical History Alcohol abuse Chronic pain CPAP (continuous positive airway pressure) dependence History of trigger finger Sleep apnea Smoker Home Medications calcium carbonate 500 mg PO Q6H PRN PRN tablet 11/01/18 [Rx Last Taken Unknown] omeprazole 20 mg PO DAILY 02/05/19 [History Last Taken Unknown] albuterol sulfate 1 - 2 puff INHALATION Q4H PRN PRN #1 inhaler 02/04/20 [Rx Last Taken Unknown] baclofen 10 mg PO TID PRN PRN 11/22/20 [History Last Taken Unknown] citalopram 20 mg PO DAILY 12/04/20 [History Last Taken Unknown] fluticasone propionate 1 spray NASAL BID 12/04/20 [History Last Taken Unknown] hydroxyzine pamoate 50 mg PO Q4H PRN PRN #1 cap 12/04/20 [Rx Last Taken Unknown] levothyroxine 200 mcg PO DAILY@0600 12/04/20 [History Last Taken Unknown] multivitamin 1 tab PO DAILY 12/04/20 [History Last Taken Unknown] sertraline 25 mg PO DAILY 12/04/20 [History Last Taken Unknown] Allergy/AdvReac Type Severity Reaction Status Date / Time No Known Allergies Allergy Verified 11/28/20 02:50 Family History Other Diabetes Surgical History (Updated 12/04/20 @ 20:[address] Gage Carrion MD) H/O hand surgery History of tonsillectomy Social History (Updated 12/04/20 @ 20:[address] Gage Carrion MD) household members: other details: Roommate who does not help him cook or clean. Smoking Status: Current every day smoker alcohol intake: current alcohol intake frequency: 3 or more drinks per day Alcohol type: hard liquor ROS Constitutional Constitutional: Denies chills, fever(s) or weight gain ENT HEENT: Denies headache(s), nasal congestion or nasal discharge Cardiovascular Cardiovascular: Denies chest pain or palpitations Respiratory/Chest Respiratory/Chest: Denies cough, excessive phlegm production or shortness of breath with exertion Gastrointestinal Gastrointestinal: Denies abdominal pain, nausea or vomiting Genitourinary Genitourinary: Denies dysuria Musculoskeletal Musculoskeletal: Denies joint pain or joint swelling Integumentary Integumentary: Denies rash or wounds Neurologic Neurologic: Denies focal weakness, numbness or tingling Psychiatric Psychiatric: Reports auditory hallucinations; Denies anxiety, depression, homicidal ideation or suicidal ideation Physical Exam Const alert and oriented x3 General Appearance: cooperative HEENT normocephalic Eyes PERRL and EOMs intact bilaterally Neck supple, no JVD and no carotid bruits Resp normal respiratory effort, normal air movement and clear to auscultation bilaterally Cardio regular rate and regular rhythm GI normal to inspection, nondistended, normoactive bowel sounds, non-tender and non-distended Extremity normal capillary refill General Extremity: Negative for edema Skin no rashes or lesions noted General Skin Exam: no breakdown Psych affect normal Appearance: appropriate Assessment & Plan Assessment/Plan (1) Debility: (2) Depression: QUALIFIERS: Depression Type: unspecified Qualified Code(s): F32.9 - Major depressive disorder, single episode, unspecified (3) Anxiety: (4) Alcohol withdrawal delirium, acute, mixed level of activity: (5) Alcohol abuse: (6) Hyponatremia: (7) Elevated liver enzymes: (8) Hypothyroidism: (9) Gastroesophageal reflux: (10) Shortness of breath: (11) Muscle spasm: (12) Tobacco abuse: PLAN: 55 year old male with below past medical history hospitalized for alcohol detoxification, complicated by depression, anxiety, admitted to TCU with debility, here for rehabilitation, strengthening, prior to discharge home alone. * Debility - PT/OT. * Pain - Tylenol 1000MG Q6H PRN pain (1-10). * Bowel - Miralax 17GM daily, Senna/colace 1 tablet BID, Dulcolax 10MG daliy PRN. * Adult immunization - Administer Prevnar 13, Pneumovax 23, Fluzone, COVID19 vaccine as appropriate. * DVT prophylaxis - Lovenox 40MG SC daily. * Shortness of breath - Albuterol 1-2 puff Q4H PRN. * Muscle spasm - Baclofen 10MG TID PRN. * Indigestion - Calcium carbonate 500MG Q6H PRN. * Depression - Citalopram 20MG daily x 7 days, then Sertraline 25MG daily x 7 days, then 50MG daily, stable chronic correction use, GDR not recommended. * Allergic Rhinitis - Flonase 1 spray nasal BID. * Anxiety - Hydroxyzine 50MG Q4H PRN. * Hypothyroidism - Levothyroxine 200MCG daily. * Nutrition - MVI daily. * GERD - Pantoprazole 20MG daily.
[2020-12-04 23:20] VITALS: BMI 264.1
[2020-12-04 23:46] VITALS: BP 141/96; PULSE 71; RESP 14; TEMP 37; O2SAT 95
[2020-12-05 02:00] VITALS: BP 132/88; PULSE 68; RESP 20; TEMP 36.7; O2SAT 95
--- NOTE | 2020-12-05 02:00 | NURSING ---
Pt calls requesting vital signs be obtained w/ reports of dyspnea. In no acute distress. Requests to be toileted. Taken to bathroom per this nurse and SPECIAL PROCEDURES NURSE using standard walker. Gait slow, coordination fair. Voids without difficulty in toilet and is continent. Returned to bed. Refer to vital signs screen for readings. Lungs clear throughout lungs casillas again posterior, no change from earlier in shift. Skin pink/pale, warm, and dry. Lips pink. Performs occasional purse-lipped breathing. No cough noted. Obtained IS and encouraged pt to engage in coughing and deep breathing exercises q1hr x 10 while awake. Pt performs some deep breathing exercises in the presence of this nurse. Refuses to wear CPAP w/ O2 bleed-in at this time but is agreeable to O2 via NC at 2 lpm. Verbalizes improved respiratory status while engaging in activities. Feels anxiety is a partial contributing factor. Refuses Vistaril at this time. Call light w/ in reach. Bed alarm activated.
--- NOTE | 2020-12-05 02:15 | NURSING ---
Pt informs this nurse he exaggerated some of his symptoms, dpes not provide further detail, while in the acute side to be transferred to TCU for extension of care and has not informed any other staff member. Eyes red, irritated. Congested, no active nasal drainage. verbalizes rt ear has been popping prior to admission to TCU while on acute side. Has Flonase nasal spray that was initiated in the hospital which he feels has not provided much relief. Denies any post-nasal drainage.
[2020-12-05 04:30] VITALS: BP 126/91; PULSE 69; RESP 14; TEMP 36.6; O2SAT 96
[2020-12-05] MEDS: Fluticasone 0.05% 1 SPRAY NASAL.SRY NASAL ×2 (04:41→17:11)
[2020-12-05] MEDS: Pantoprazole Sodium 20 MG Tablet PO (04:42)
[2020-12-05] MEDS: Levothyroxine 100 MCG Tablet 200 MCG PO (04:42)
[2020-12-05] MEDS: Citalopram 20 MG Tablet PO (04:43)
[2020-12-05] MEDS: Sertraline 50 MG Tablet 25 MG PO (04:43)
[2020-12-05] MEDS: Enoxaparin 40 MG/0.4 ML Syringe SC (04:44)
[2020-12-05] MEDS: hydrOXYzine PAM 25 MG Capsule 50 MG PO ×2 (04:57→13:51)
--- NOTE | 2020-12-05 05:00 | NURSING ---
Pt continues to verbalize anxiety. Strongly suggested to take Vistaril to relieve symptoms. Repeatedly verbalizes he does not wish to take medication, even after side and desired effects explained. Pt then agrees to a dose of Vistaril per dr order. Staff to continue to monitor.
[2020-12-05 07:20] LABS: Absolute Lymphocyte Count 1.26 X10^3/uL (0.83-4.51); Absolute Neutrophil Count 6.5 X10^3/uL (2.0-7.7); Basophil# 0.07 X10^3/uL; Basophil% 0.8 % (0-1); Eosinophils% 3.2 % (0-5); Hemoglobin 14.1 g/dL (13.0-16.5); Lymphocyte # 1.26 X10^3/ul (0.83-4.51); Lymphocyte % 13.5 % (19-41); Mean Corp Hgb Conc 33.6 g/dL (32-36); Mean Corpuscular Hgb 34.9 pg (27.0-32.0); Mean Platelet Vol. 9.7 fl (6.2-12.0); Monocyte# 0.98 X10^3/uL; Monocyte% 10.5 % (0-10); NRBC Flagged by Analyzer 0 % (0-5); Neutrophil # 6.52 X10^3/uL (2.7-7.7); Platelet Count 224 K/mm3 (150-450); RBC Distribution Width CV 14.3 % (11.6-14.6); RBC Distribution Width SD 54.8 fl (35.1-43.9); Red Blood Count 4.04 M/mm3 (4.6-6.2); White Blood Count 9.3 K/mm3 (4.4-11.0)
[2020-12-05 07:40] LABS: Anion Gap 4 (5-15); BUN 12 mg/dL (7-18); BUN/Creat Ratio 11.2 RATIO (10-20); Calcium,Total 9.1 mg/dL (8.5-10.1); Chloride 100 mmol/L (98-107); Creatinine, Serum 1.07 mg/dL (0.70-1.30); EST Glomerular Filtration Rate 77 mL/min (>60); Est Glom Filt Rate - Afr Amer 93 mL/min (>60); Glucose 94 mg/dL (74-106); Potassium 4.3 mmol/L (3.5-5.1); Sodium Level 131 mmol/L (136-145)
[2020-12-05] MEDS: Multivitamins,Therapeutic Tablet 1 TABLET PO (08:29)
--- NOTE | 2020-12-05 11:54 | NURSING ---
Pt c/o of redness to bilateral eyes d/t difficulty removing contacts requested Eye Drops. Dr. Carrion updated and new order for Artificial tears entered.
[2020-12-05] MEDS: Tuberculin,Purif.prot.deriv. 50 TU/ML Vial 5 ML ID (12:41)
[2020-12-05 13:21] LABS: Bedside Glucose 105 mg/dL (70-110)
[2020-12-05] MEDS: Glycerin/Hypromellose/PEG400 15 ml Bottle 1 DRP EACH EYE ×2 (20:22→21:53)
[2020-12-05 22:00] VITALS: PULSE 66; RESP 16; O2SAT 96
[2020-12-06 04:00] VITALS: BP 152/88; PULSE 67; RESP 16; TEMP 36.6; O2SAT 97
[2020-12-06] MEDS: Enoxaparin 40 MG/0.4 ML Syringe SC (06:10)
[2020-12-06] MEDS: Citalopram 20 MG Tablet PO (06:12)
[2020-12-06] MEDS: Levothyroxine 100 MCG Tablet 200 MCG PO (06:12)
[2020-12-06] MEDS: Pantoprazole Sodium 20 MG Tablet PO (06:13)
[2020-12-06] MEDS: Sertraline 50 MG Tablet 25 MG PO (06:14)
[2020-12-06] MEDS: Fluticasone 0.05% 1 SPRAY NASAL.SRY NASAL ×2 (06:16→16:30)
[2020-12-06 07:26] VITALS: O2SAT 92
[2020-12-06] MEDS: Glycerin/Hypromellose/PEG400 15 ml Bottle 1 DRP EACH EYE (08:29)
[2020-12-06] MEDS: Multivitamins,Therapeutic Tablet 1 TABLET PO (08:31)
--- NOTE | 2020-12-06 08:43 | NURSING ---
Addendum entered by Radha Munoz 12/06/20 11:04: Updated Dr. Carrion on pt request for Ativan and the Side effects from Vistaril. New order for 1 mg Ativan PRN q4hrs. Original Note: Pt asking for address for [facility] so that he could have CBD oil delivered here. Adv pt that we would need to get a order from Dr. Carrion in order for us to be able to administer CBD oil . Pt stated it has helped me before get off Ativan for anxiety and he would just have his daughter bring it in and he would use it himself. Educated pt again that we would need an order from Dr. Carrion and will we update him. Pt also stated that he felt dizzy and his balance is off d/t taking Vistaril for anxiety and would prefer to have Ativan. I adv him that I would update Dr. Carrion on his side effects from taking the Vistaril. Pt then stated that he feels dizzy d/t his ears popping and feeling unbalanced. I then asked pt if he feels that is what is causing the dizziness instead of the Vistaril. Pt said well no its a different type of dizziness when I take the Vistaril. At this time pt A&Ox3 and was calm and cooperative with care. Will continue to monitor for signs and symptoms of anxiety. Will update Dr. Carrion.
[2020-12-06] MEDS: LORazepam 1 MG Tablet PO (11:29)
[2020-12-06 11:34] VITALS: PULSE 62; RESP 16; O2SAT 96
[2020-12-06] MEDS: Acetaminophen 500 MG Tablet 1000 MG PO ×2 (11:49→23:52)
[2020-12-06 15:45] VITALS: BP 147/97; PULSE 62; RESP 18; TEMP 36.6; O2SAT 96
[2020-12-07 04:00] VITALS: BP 134/84; PULSE 66; RESP 16; TEMP 36.7; O2SAT 66
[2020-12-07] MEDS: Fluticasone 0.05% 1 SPRAY NASAL.SRY NASAL ×2 (04:43→17:22)
[2020-12-07] MEDS: Enoxaparin 40 MG/0.4 ML Syringe SC (04:45)
[2020-12-07] MEDS: Citalopram 20 MG Tablet PO (04:45)
[2020-12-07] MEDS: Pantoprazole Sodium 20 MG Tablet PO (04:46)
[2020-12-07] MEDS: Sertraline 50 MG Tablet 25 MG PO (04:47)
[2020-12-07] MEDS: Levothyroxine 100 MCG Tablet 200 MCG PO (04:47)
[2020-12-07] MEDS: LORazepam 1 MG Tablet PO ×2 (04:51→18:24)
[2020-12-07] MEDS: Multivitamins,Therapeutic Tablet 1 TABLET PO (09:26)
--- NOTE | 2020-12-07 11:00 | PHA.CONS_ITS ---
Progress Note - Pharmacy Subjective: TCU Admission Objective: Allergies No Known Allergies Allergy (Verified 11/28/20 02:50) Current Medications Generic Name Dose Route Start Last Admin Trade Name Freq PRN Reason Stop Dose Admin Acetaminophen 1,000 mg 12/04/20 20:24 12/06/20 23:52 Acetaminophen 500 Mg Tablet PO 1,000 mg Q6H PRN PRN Administration Pain Score 1-10 Albuterol Sulfate 1 - 2 puff 12/04/20 19:25 Albuterol Sulfate 8 Gm Inhaler (60 Puffs) INHALATION Q4H PRN PRN Wheezing Baclofen 10 mg 12/04/20 19:05 Baclofen 10 Mg Tablet PO TID PRN PRN Muscle Spasm Bisacodyl 10 mg 12/04/20 20:24 Bisacodyl 5 Mg Tablet PO DAILY PRN Constipation Calcium Carbonate 500 mg 12/04/20 19:05 Calcium Carbonate 500 Mg Tablet PO Q6H PRN PRN Indigestion Citalopram Hydrobromide 20 mg 12/05/20 06:00 12/07/20 04:45 Citalopram 20 Mg Tablet PO 12/11/20 06:01 20 mg DAILY TONY Administration Enoxaparin Sodium 40 mg 12/05/20 06:00 12/07/20 04:45 Enoxaparin 40 Mg/0.4 Ml Syringe SC 40 mg DAILY@0600 TONY Administration Fluticasone Propionate 1 spray 12/05/20 06:00 12/07/20 04:43 Fluticasone 0.05% 1 [place] Nasal.Sry NASAL 1 spray BID TONY Administration Hydroxyzine Pamoate 50 mg 12/04/20 19:05 12/05/20 13:51 Hydroxyzine Edyta 25 Mg Capsule PO 50 mg Q4H PRN PRN Administration mild anxiety Levothyroxine Sodium 200 mcg 12/05/20 06:00 12/07/20 04:47 Levothyroxine 100 Mcg Tablet PO 200 mcg DAILY@0600 TONY Administration Lorazepam 1 mg 12/06/20 10:54 12/07/20 04:51 Lorazepam 1 Mg Tablet PO 1 mg Q4H PRN PRN Administration ANXIETY Multivitamins 1 tablet 12/05/20 08:00 12/07/20 09:26 Multivitamins,Therapeutic Tablet PO 1 tablet DAILYCM TONY Administration Pantoprazole Sodium 20 mg 12/05/20 06:00 12/07/20 04:46 Pantoprazole Sodium 20 Mg Tablet PO 20 mg DAILY TONY Administration Polyethylene Glycol 17 gm 12/05/20 06:00 12/07/20 04:44 Polyethylene Glycol 3350 17 Gm Packet PO Not Given DAILY TONY Senna/Docusate Sodium 1 tablet 12/05/20 06:00 12/07/20 04:44 Senna/Docusate Sodium 1 Tablet PO Not Given BID TONY Sertraline HCl 25 mg 12/05/20 06:00 12/07/20 04:47 Sertraline 50 Mg Tablet PO 12/11/20 06:01 25 mg DAILY TONY Administration Sertraline HCl 50 mg 12/12/20 06:00 Sertraline 50 Mg Tablet PO DAILY TONY Tuberculin PPD 5 tu 12/12/20 10:00 Tuberculin,Purif.Prot.Deriv. 50 Tu/Ml Vial ID 12/12/20 10:01 X1 ONE Problem List (Last Updated 12/04/20 @ 20:[address] Gage Carrion MD) Tobacco abuse (Acute) Muscle spasm (Acute) Shortness of breath (Acute) Gastroesophageal reflux (Acute) Hypothyroidism (Acute) Elevated liver enzymes (Acute) Hyponatremia (Acute) Alcohol abuse (Acute) Debility (Acute) Alcohol withdrawal delirium, acute, mixed level of activity (Acute) Depression (Chronic) Anxiety (Chronic) Vital Signs Temp Pulse Resp BP Pulse Ox 98.0 F 66 16 134/84 H 66 12/07/20 04:00 12/07/20 04:00 12/07/20 04:00 12/07/20 04:00 12/07/20 04:00 Oxygen Flow Rate (L/min) 4 Oxygen Delivery Method Room Air Weight: 111.6 kg Body Mass Index (BMI) 264.1 Sodium 131 mmol/L (136-145) L 12/05/20 07:12 Potassium 4.3 mmol/L (3.5-5.1) 12/05/20 07:12 Chloride 100 mmol/L (98-107) 12/05/20 07:12 Carbon Dioxide 27.0 mmol/L (21.0-32.0) 12/05/20 07:12 Anion Gap 4 (5-15) L 12/05/20 07:12 BUN 12 mg/dL (7-18) 12/05/20 07:12 Creatinine 1.07 mg/dL (0.70-1.30) 12/05/20 07:12 Est GFR (MDRD) Af Amer 93 mL/min (>60) 12/05/20 07:12 Est GFR (MDRD) Non-Af 77 mL/min (>60) 12/05/20 07:12 BUN/Creatinine Ratio 11.2 RATIO (10-20) 12/05/20 07:12 Glucose 94 mg/dL (74-106) 12/05/20 07:12 Assessment/Plan: 1. Pain: acetaminophen 1000mg PO Q6H PRN pain (1-10). Please continue to monitor pain and PRN usage. 2. DVT prophylaxis: enoxaparin 40mg SC daily. Please continue to monitor platelets (last 224,000) S/S of DVT/bleeding, hemoglobin (last 14.1g/dL) and renal function. 3. Shortness of breath: albuterol inhaler 1-2 puff inhalation Q4H PRN wheezing. Please continue to monitor wheezing and PRN usage. 4. Muscle spasm: baclofen 10mg PO TID PRN muscle spasm. Please continue to monitor muscle spasms and PRN usage. 5. Indigestion: calcium carbonate 500mg PO Q6H PRN indigestion. Please continue to monitor indigestion, PRN usage, and calcium (last 9.1mg/dL). 6. Allergic Rhinitis: fluticasone 0.05% nasal spray 1 spray nasal each nostril BID. Please continue to monitor S/S allergic rhinitis. 7. Hypothyroidism: levothyroxine 200mcg PO daily. Please continue to monitor TSH (last ).11/28/20) and for S/S of hypo/hyperthyroidism. 8. GERD: pantoprazole 20mg PO daily. Please continue to monitor S/S of GERD and diarrhea. 9. Nutrition: multivitamin 1T PO DAILYCM. Please continue to monitor. 10. Dry eyes: artificial tears 1gtt each eye Q1H PRN dry eyes. Please continue to monitor for dry eyes and PRN usage. Psychotropic Medications: 1. Depression: citalopram 20mg PO daily thru 12/11/20 and sertraline 25mg PO daily thru 12/11/20, then 50mg PO daily starting 5/22/21.. See physician note regarding GDR. Please continue to monitor worsening depression, HR (last 66) and GI upset. *2. Anxiety: hydroxyzine 50mg PO Q4H PRN mild anxiety and lorazepam 1mg PO Q4H PRN anxiety. Please continue to monitor PRN usage and for anxiety. Please clarify if hydroxyzine or lorazepam should be given first line. Thanks. Unnecessary Medications: None Bowel Regimen: Miralax 17gm PO daily, senna/docusate 1T PO BID and bisacodyl 10mg PO daily PRN constipation. Patient has refused 3/3 doses of Miralax and 5/5 doses of senna/docusate. Please consider changing from scheduled to PRN constipation. Thanks. Please continue to monitor constipation and PRN usage. Date of Note:: 12/07/20
[2020-12-07 11:21] VITALS: BMI 40.9
[2020-12-07] MEDS: Acetaminophen 500 MG Tablet 1000 MG PO (12:37)
--- NOTE | 2020-12-07 13:51 | CASEMGMT ---
Social Work Met with patient for initial assessment. Discussed code status. Pt confirms full code. MARIA C reviewed, communication to , and placed in chart. Pt denies advanced directives and not wanting to complete. Explained [facility] insurance with [employer] 12/07 and continued stay is not guaranteed. Spoke with pt at length about insurance coverage, goals while in TCU and goals to DC home safely. Pt continued to reiterate not wanting to be released too soon by insurance. Explained pt does have appeal rights once DC date is issued. Explained pt has Medicaid secondary and could transfer to SNF. Pt agreeable to [facility], if needed. Pt reports to having no services or behavioral health case manager through Medicaid. Pt states he needs to be at 90% functioning independent to return home. SW discussed alcohol use. Pt was admitted to [facility] program on acute. Lance from [facility] is following. Upon inquiring about alcohol information, pt wished not to answer further questions; however, pt interested in Behavioral Health program. Briefly explained program and offered to make referral. Pt agreeable. Referred to Reilly at Behavioral Health. SW to continue to follow. Jill Krishna, FAMILY PSYCHOLOGIST [employer] [employer]
[2020-12-07 16:00] VITALS: BP 149/84; PULSE 59; RESP 16; TEMP 36.4; O2SAT 97
[2020-12-07] MEDS: Nystatin Powder 15gm Bottle 1 APPLIC TOPICAL (20:23)
[2020-12-07 22:00] VITALS: PULSE 100
[2020-12-08] MEDS: Enoxaparin 40 MG/0.4 ML Syringe SC (06:16)
[2020-12-08] MEDS: Citalopram 20 MG Tablet PO (06:16)
[2020-12-08] MEDS: Pantoprazole Sodium 20 MG Tablet PO (06:17)
[2020-12-08] MEDS: Nystatin Powder 15gm Bottle 1 APPLIC TOPICAL ×2 (06:17→21:35)
[2020-12-08] MEDS: Sertraline 50 MG Tablet 25 MG PO (06:18)
[2020-12-08] MEDS: Levothyroxine 100 MCG Tablet 200 MCG PO (06:18)
[2020-12-08] MEDS: Multivitamins,Therapeutic Tablet 1 TABLET PO (06:19)
[2020-12-08] MEDS: Fluticasone 0.05% 1 SPRAY NASAL.SRY NASAL ×2 (06:22→17:10)
[2020-12-08] MEDS: LORazepam 1 MG Tablet PO ×3 (06:26→21:30)
[2020-12-08 06:55] VITALS: BP 146/90; PULSE 68; RESP 16; TEMP 35.9
[2020-12-08 15:47] VITALS: BP 154/90; PULSE 75; RESP 14; TEMP 36.7; O2SAT 95
--- NOTE | 2020-12-08 16:34 | CHAPLAIN ---
Type of Pastoral Visit ___ Initial Visit _x__ Follow-up Visit ___ On-call Visit ___ General Patient Visit ___ Spiritual Assessment ___ Family Conference ___ Bereavement ___ Rapid Response ___ Code Blue ___ Other (describe below) Pastoral Care Referral From _x__ Patient ___ Family ___ Nurse ___ Physician ___ Edi Analyst ___ Adult Neuropsychologist ___ Other (describe below) Sacrament/Intervention _x__ Active listening ___ Anointing ___ Jew ___ Bereavement ___ Communion ___ Amarilys exploration ___ _x__ Life review _x__ Prayer ___ Reconciliation ___ Sacrament of Sick _x__ Supportive presence ___ Wedding ___ Other (describe below) Pastoral Comments patient is very welcoming of this follow up visit; pt states that he needs a prayer for his full recovery and assistance to do better with his life;
[2020-12-08] MEDS: Acetaminophen 500 MG Tablet 1000 MG PO (21:29)
[2020-12-08 21:40] VITALS: PULSE 68; RESP 16
[2020-12-09 04:00] VITALS: BP 136/86; PULSE 66; RESP 16; TEMP 36.5; O2SAT 95
[2020-12-09] MEDS: Enoxaparin 40 MG/0.4 ML Syringe SC (05:08)
[2020-12-09] MEDS: Citalopram 20 MG Tablet PO (05:08)
[2020-12-09] MEDS: Fluticasone 0.05% 1 SPRAY NASAL.SRY NASAL ×2 (05:08→18:18)
[2020-12-09] MEDS: Nystatin Powder 15gm Bottle 1 APPLIC TOPICAL (05:09)
[2020-12-09] MEDS: Pantoprazole Sodium 20 MG Tablet PO (05:10)
[2020-12-09] MEDS: Levothyroxine 100 MCG Tablet 200 MCG PO (05:10)
[2020-12-09] MEDS: Sertraline 50 MG Tablet 25 MG PO (05:11)
[2020-12-09] MEDS: Multivitamins,Therapeutic Tablet 1 TABLET PO (08:17)
[2020-12-09] MEDS: LORazepam 1 MG Tablet PO ×2 (08:23→18:17)
[2020-12-09] MEDS: Acetaminophen 500 MG Tablet 1000 MG PO (09:55)
--- NOTE | 2020-12-09 12:34 | CASEMGMT ---
Social Work IDT met with patient and two daughters via conference call for care plan meeting. Discussed patient's progress in therapy and nursing. Pt is progressing well, however, very adamant about ensuring he gets stretched twice a day. Pt is motivated and comes to the therapy gym, when supervised, on his own outside therapy sessions. Explained [facility] insurance with NRD 12/10 and continued stay is not guaranteed. Pt expressed his feelings about insurance and how he feels he will not get enough time in this unit, and needs to be independent as he is returning home alone. Explained pt has appeal rights and SW will assist if that is his choice once the LCD is given. Explained a worker from Behavioral Health will be in to visit pt prior to DC. Pt inquired about Medicaid benefit and transferring to another SNF for continued therapy. Offered to assist with that option and contact S to ensure his Medicaid benefit covers SNF. Pt agreed. Left message with S. SW to continue to follow. Jill Krishna, SUPERVISOR [employer]OPELL[employer] CHARGE LOADING GRAIN ELEVATOR CLERK
[2020-12-09 13:22] VITALS: BP 137/85; PULSE 75; RESP 18; TEMP 36.4; O2SAT 95
[2020-12-09 23:12] VITALS: PULSE 68; RESP 12
[2020-12-10] MEDS: Nystatin Powder 15gm Bottle 1 APPLIC TOPICAL ×2 (06:30→06:41)
[2020-12-10] MEDS: Fluticasone 0.05% 1 SPRAY NASAL.SRY NASAL ×2 (06:32→17:33)
[2020-12-10] MEDS: Pantoprazole Sodium 20 MG Tablet PO (06:32)
[2020-12-10] MEDS: Citalopram 20 MG Tablet PO (06:32)
[2020-12-10] MEDS: Enoxaparin 40 MG/0.4 ML Syringe SC (06:32)
[2020-12-10] MEDS: Sertraline 50 MG Tablet 25 MG PO (06:33)
[2020-12-10] MEDS: Levothyroxine 100 MCG Tablet 200 MCG PO (06:33)
[2020-12-10] MEDS: LORazepam 1 MG Tablet PO ×2 (06:35→14:44)
[2020-12-10 07:03] VITALS: BP 150/85; PULSE 79; RESP 16; TEMP 36.5; O2SAT 93
--- NOTE | 2020-12-10 07:38 | NURSING ---
Pt found transferring himself from bed to chair. Pt stated he knows how to turn off Bed Alarm and he knows what he is doing. Educated pt on the risks of falls.
[2020-12-10] MEDS: Multivitamins,Therapeutic Tablet 1 TABLET PO (08:13)
--- NOTE | 2020-12-10 10:58 | CASEMGMT ---
BIMS and PHQ9 interviews completed on this date for MDS assessment. NYDIA Ordoñez
[2020-12-10] MEDS: Acetaminophen 500 MG Tablet 1000 MG PO ×2 (12:01→21:58)
[2020-12-10 13:08] VITALS: PULSE 70; RESP 14
[2020-12-10 16:10] VITALS: BP 137/82; PULSE 70; RESP 18; TEMP 36.7; O2SAT 96
--- NOTE | 2020-12-10 16:10 | CASEMGMT ---
Social Work SW completed application for Waiver Program for home assistance through [facility] and faxed application to [facility]. Pt will be contacted directly by [facility] for assessment for eligibility for this program. NYDIA Ordoñez
[2020-12-10 21:59] VITALS: PULSE 71; O2SAT 97
--- NOTE | 2020-12-10 21:59 | CPS ---
pt is going to wear his own cpap 7 21%
[2020-12-11 04:00] VITALS: BP 124/90; PULSE 69; RESP 16; TEMP 36.8; O2SAT 99
[2020-12-11] MEDS: Citalopram 20 MG Tablet PO (05:59)
[2020-12-11] MEDS: Fluticasone 0.05% 1 SPRAY NASAL.SRY NASAL ×2 (05:59→16:43)
[2020-12-11] MEDS: Pantoprazole Sodium 20 MG Tablet PO (06:01)
[2020-12-11] MEDS: Levothyroxine 100 MCG Tablet 200 MCG PO (06:01)
[2020-12-11] MEDS: Enoxaparin 40 MG/0.4 ML Syringe SC (06:02)
[2020-12-11] MEDS: Sertraline 50 MG Tablet 25 MG PO (06:02)
[2020-12-11] MEDS: Multivitamins,Therapeutic Tablet 1 TABLET PO (08:09)
[2020-12-11] MEDS: LORazepam 1 MG Tablet PO ×2 (09:04→20:43)
--- NOTE | 2020-12-11 09:05 | NURSING ---
RESIDENT VERY ANXIOUS AFTER SPEAKING TO DR KEBEDE THIS AM REGARDING HIS ALCOHOL STATUS WHEN ADMITTED TO HOSPITAL. PT STATING HE DRINKS EVERYNIGHT APPROX 6-10 BEERS A NIGHT AND DOES NOT UNDERSTAND WHY HIS ALCOHOL LEVEL WAS SO HIGH. STATES HE ONLY DRANK 2 BEERS NIGHT BEFORE ADMISSION. 1:1 SUPPORT GIVEN, NOTIFIED MECHANICAL SERVICE REPRESENTATIVE WELL PER PT REQUEST. PT ALSO STATED I DID EXAGGERATE MY SYMPTOMS BECAUSE I DID NOT WANT TO DETOX ALONE PRN ATIVAN GIVEN PER PT REQUEST.
--- NOTE | 2020-12-11 10:03 | NURSING ---
SPOKE WITH DR MONREAL OFFICE WITH ALL INFORMATION REGARDING PT C/O EARS POPPING PER DR KEBEDE ORDER.
--- NOTE | 2020-12-11 11:46 | PCM.CONS.GEN ---
Assessment & Plan Assessment/Plan (1) Objective tinnitus of both ears: PLAN: Patient is a 55-year-old male who complains of popping with jaw movement in the ears predominantly on the right side after attempted self irrigation to clean earwax. I see no signs of infection or middle ear disease. He does have a small amount of sticky wax at the external meatus and I suspect that his popping arises from the mild adherence of the canal castellanos due to the sticky wax with changes in the shape of the ear canal due to jaw movement. I have reassured him that this is very normal and nothing to be concerned about from a health standpoint. I have offered him an office follow-up for removal of the scant amount of earwax for full relief of his complaints at which time formal audiometric testing and tympanometry to assess the ventilation of middle ear spaces may also be performed. He does claim dizziness however on further discussion this seems to be an ambulatory off-balance and anxiety condition which does not appear to stem from any problems of the middle ear and reassurance is again offered. Overall he presents as a very anxious individual and I have tried to offer him reassurance as to the benign nature of this complaint which he seems to be accepting through our conversation today. HPI Consult Data Date of Consult: 12/11/20 HPI Narrative Reason for Consultation: Ear popping HPI Narrative: GOOD RUBIO, is a 55 M who presents with a complaint of intermittent ear popping predominantly in the right side although there is some bilateral involvement. He reports this started after self irrigation of the ear canals at home. This comes and goes and seems to be associated with jaw movement. He admits to significant anxiety and reports that he read that earwax can cause anxiety in the [place] [employer]. He also has entertained the possibility of swimmer's ear or eustachian tube dysfunction however reports that the use of Flonase for the last week or so has not resulted in improvement of this complaint. He reports that [facility] and he was told ear canals were clear. He reports some imbalance but denies mandy vertigo although this is more similar to his anxiety per his complaint. He denies any hearing loss, ear pain, or injury to the ears. PFSH Medical History Alcohol abuse Chronic pain CPAP (continuous positive airway pressure) dependence History of trigger finger Sleep apnea Smoker Home Medications calcium carbonate 500 mg PO Q6H PRN PRN tablet 11/01/18 [Rx Last Taken Unknown] omeprazole 20 mg PO DAILY 02/05/19 [History Last Taken Unknown] albuterol sulfate 1 - 2 puff INHALATION Q4H PRN PRN #1 inhaler 02/04/20 [Rx Last Taken Unknown] baclofen 10 mg PO TID PRN PRN 11/22/20 [History Last Taken Unknown] citalopram 20 mg PO DAILY 12/04/20 [History Last Taken Unknown] fluticasone propionate 1 spray NASAL BID 12/04/20 [History Last Taken Unknown] hydroxyzine pamoate 50 mg PO Q4H PRN PRN #1 cap 12/04/20 [Rx Last Taken Unknown] levothyroxine 200 mcg PO DAILY@0600 12/04/20 [History Last Taken Unknown] multivitamin 1 tab PO DAILY 12/04/20 [History Last Taken Unknown] sertraline 25 mg PO DAILY 12/04/20 [History Last Taken Unknown] Allergy/AdvReac Type Severity Reaction Status Date / Time No Known Allergies Allergy Verified 11/28/20 02:50 Family History Other Diabetes Surgical History (Updated 12/04/20 @ 20:[address] Gage Carrion MD) H/O hand surgery History of tonsillectomy Social History (Updated 12/04/20 @ 20:[address] Gage Carrion MD) household members: other details: Roommate who does not help him cook or clean. Smoking Status: Current every day smoker alcohol intake: current alcohol intake frequency: 3 or more drinks per day Alcohol type: hard liquor ROS Constitutional Constitutional: Denies anorexia, chills, fever(s) or headache(s) Eyes Eyes: Denies blindness, double vision, irritation or itchy eyes ENT HEENT: Reports dizziness; Denies ear discharge, ear pain, hearing loss, nasal congestion or nasal discharge Cardiovascular Cardiovascular: Denies abdominal pain or chest pain Respiratory/Chest Respiratory/Chest: Denies chest congestion, chest tightness or dry cough Gastrointestinal Gastrointestinal: Denies abdominal pain, constipation or diarrhea Neurologic Neurologic: Reports disequilibrium; Denies abnormal hearing or abnormal speech Psychiatric Psychiatric: Reports anxiety Endocrine Endocrinology: Denies cold intolerance or fatigue Hematologic/Lymphatic Hematologic/Lymphatic: Denies easy bleeding or easy bruising Allergic/Immunologic Allergic/Immunologic: Denies itchy eyes, lip swelling or throat swelling Physical Exam Const alert and oriented x3 General Appearance: cooperative and anxious Orientation / Consciousness: oriented to person, oriented to place and oriented to time Exam Limitations: no limitations HEENT normocephalic, head/scalp atraumatic, hearing grossly normal bilaterally, external ears normal and EAC's normal HEENT Narrative: There is scant earwax at the lateral aspect of the external meatus bilaterally Head and Scalp: normal to inspection and atraumatic Face and Sinus: normal facial exam and face symmetric Nose: external nose normal External Ear: external ears normal and mastoids normal External Auditory Canal: EAC's normal Tympanic Membrane: TM's normal bilaterally Mouth: lips normal and tongue normal Eyes PERRL and EOMs intact bilaterally Neck full ROM General: normal visual inspection and trachea midline Chest Chest: symmetrical chest wall rise Resp normal respiratory effort Effort and Inspection: able to speak in complete sentences Cardio regular rate and regular rhythm Neuro oriented x3 Psych Attitude: calm Speech: normal speech Mood & Affect: anxious Lab / Micro Data Result Diagrams: 12/05/20 07:12 12/05/20 07:12
--- NOTE | 2020-12-11 14:47 | CASEMGMT ---
Social Work Met with patient at length. Provided active listening. Pt discussed feelings about 'alcoholism' - admits he is not an alcoholic, doesn't like to get drunk or be 'out of control' and concerned where ED received his toxicology levels - living by himself, which he has never done before and does not want to do. Pt explained he feels his daughter should allow him to DC home with her but currently she is not in agreement. Provided verbal support and attempted to provide solutions, but pt disputes each suggestion. Pt expressed feelings about insurance and states he spoke with a premium representative who agreed to advocate for time in TCU. At the end of the conversation, SW redirected to focus on DC plan. SW offered to plan for DC home or to dtrs by getting HHC and DME or plan for SNF. Pt states he doesn't want to pursue homegoing because he doesn't feel ready or comfortable. He would like a SNF- [facility] first, [facility] second and [facility] third. Contacted all SNFs - pt is 4th on waitlist at [facility], [facility] denied, and [facility] accepted. Updated pt to information as well as insurance approving NRD 12/14 but continued stay is not guaranteed. Pt happy. Will continue to follow. Jill Krishna, WENCESLAO SWAINW
[2020-12-11 16:45] VITALS: BP 141/86; PULSE 70; RESP 14; TEMP 36.5; O2SAT 95
[2020-12-11] MEDS: Nystatin Powder 15gm Bottle 1 APPLIC TOPICAL (20:44)
[2020-12-11] MEDS: Acetaminophen 500 MG Tablet 1000 MG PO (21:45)
[2020-12-11 23:17] VITALS: PULSE 72; RESP 16
[2020-12-12] MEDS: Fluticasone 0.05% 1 SPRAY NASAL.SRY NASAL ×2 (05:15→16:59)
[2020-12-12] MEDS: Enoxaparin 40 MG/0.4 ML Syringe SC (05:16)
[2020-12-12] MEDS: Nystatin Powder 15gm Bottle 1 APPLIC TOPICAL ×2 (05:17→20:28)
[2020-12-12] MEDS: Pantoprazole Sodium 20 MG Tablet PO (05:17)
[2020-12-12] MEDS: Sertraline 50 MG Tablet PO (05:18)
[2020-12-12] MEDS: Levothyroxine 100 MCG Tablet 200 MCG PO (05:18)
[2020-12-12 06:19] VITALS: BP 138/78; PULSE 73; RESP 16; TEMP 36.6; O2SAT 94
[2020-12-12 08:41] LABS: Absolute Lymphocyte Count 1.84 X10^3/uL (0.83-4.51); Absolute Neutrophil Count 8.3 X10^3/uL (2.0-7.7); Basophil# 0.11 X10^3/uL; Eosinophils% 1.7 % (0-5); Hematocrit 42.3 % (40-54); Hemoglobin 14.3 g/dL (13.0-16.5); Lymphocyte # 1.84 X10^3/ul (0.83-4.51); Mean Corp Hgb Conc 33.8 g/dL (32-36); Mean Corpuscular Volume 100.7 fL (80-94); Mean Platelet Vol. 10.6 fl (6.2-12.0); Monocyte# 0.79 X10^3/uL; Monocyte% 6.9 % (0-10); NRBC Flagged by Analyzer 0 % (0-5); Neutrophil # 8.33 X10^3/uL (2.7-7.7); Neutrophil % 72.6 % (47-70); Platelet Count 360 K/mm3 (150-450); RBC Distribution Width CV 13.8 % (11.6-14.6); RBC Distribution Width SD 50.7 fl (35.1-43.9); White Blood Count 11.5 K/mm3 (4.4-11.0)
[2020-12-12] MEDS: Multivitamins,Therapeutic Tablet 1 TABLET PO (08:45)
[2020-12-12] MEDS: LORazepam 1 MG Tablet PO ×2 (08:49→17:02)
[2020-12-12] MEDS: Acetaminophen 500 MG Tablet 1000 MG PO (08:49)
[2020-12-12 09:02] LABS: Anion Gap 7 (5-15); BUN 12 mg/dL (7-18); BUN/Creat Ratio 10.7 RATIO (10-20); Chloride 102 mmol/L (98-107); Creatinine, Serum 1.12 mg/dL (0.70-1.30); EST Glomerular Filtration Rate 73 mL/min (>60); Est Glom Filt Rate - Afr Amer 88 mL/min (>60); Estimated Creatinine Clearance 66.35 ml/min; Glucose 88 mg/dL (74-106); Potassium 3.8 mmol/L (3.5-5.1); Sodium Level 135 mmol/L (136-145)
[2020-12-12] MEDS: Tuberculin,Purif.prot.deriv. 50 TU/ML Vial 5 ML ID (12:07)
[2020-12-12 14:26] VITALS: BP 134/65; PULSE 73; RESP 16; TEMP 36.7; O2SAT 97
--- NOTE | 2020-12-12 19:07 | NURSING ---
Patient requesting RN note patients chart he is having difficulty walking d/t cerebral palsy causing pain and muscle tightness. Patient transferred to restroom with wheeled walker, supervision. RN offered PRN medications (baclofen, tylenol, ultram), patient refused all. will continue to monitor and report at shift change.
[2020-12-12] MEDS: traMADol 50 MG Tablet PO (20:27)
--- NOTE | 2020-12-12 20:30 | NURSING ---
Pt questions this nurse if he is able to take any additional medication for pain. Denies any muscle spasms at this time while resting, only w/ movement. Offered Tramdol. Instructed on desired and side effects. After much discussion and hesitancy from pt, he is then agreeable to take Tramadol. Instructed not to perform unassisted transfers and need to call for staff for mobility needs. Call light w/ in reach.
--- NOTE | 2020-12-12 20:30 | NURSING ---
Pt notes increased edema to BLE. Q!uestions if compression stockings would be appropriate. This nurse informs pt GUICHO wraps may be more suitable d/t degree of edema as stockings may be too tight. He verbalizes understanding and will think about options. BLE dependent during discusssion.
[2020-12-13] MEDS: Fluticasone 0.05% 1 SPRAY NASAL.SRY NASAL ×2 (04:27→16:00)
[2020-12-13] MEDS: Acetaminophen 500 MG Tablet 1000 MG PO ×2 (04:28→10:38)
[2020-12-13] MEDS: traMADol 50 MG Tablet PO (04:29)
[2020-12-13] MEDS: Pantoprazole Sodium 20 MG Tablet PO (04:29)
[2020-12-13] MEDS: Nystatin Powder 15gm Bottle 1 APPLIC TOPICAL ×2 (04:29→21:57)
[2020-12-13] MEDS: Enoxaparin 40 MG/0.4 ML Syringe SC (04:30)
[2020-12-13] MEDS: Levothyroxine 100 MCG Tablet 200 MCG PO (04:30)
[2020-12-13] MEDS: Sertraline 50 MG Tablet PO (04:30)
[2020-12-13 04:35] VITALS: BP 130/77; PULSE 63; RESP 16; TEMP 36.3; O2SAT 95
[2020-12-13] MEDS: Multivitamins,Therapeutic Tablet 1 TABLET PO (08:16)
[2020-12-13] MEDS: LORazepam 1 MG Tablet PO (12:55)
[2020-12-13 14:42] VITALS: BP 129/72; PULSE 55; RESP 18; TEMP 36.1; O2SAT 93
--- NOTE | 2020-12-14 00:23 | NURSING ---
Pt questions this nurse if O2 is to be connected to his CPAP from home. Informed pt per order, O2 bleed-in into CPAP was ak'ed on 12/11. Pt insistent an overnight oximetry was completed two nights ago and the monitor alarmed frequently. This nurse navigated chart and was unable to locate study. Phone call to respiratory to follow-up. Jose Angel and an additional RT came to unit and reviewed results. SpO2 did not drop below 91% throughout the duration of the study. Plan to update pt in am during med pass or sooner if calling for staff assist.
[2020-12-14 03:15] VITALS: BP 118/64; PULSE 75; RESP 16; TEMP 36.7; O2SAT 98
--- NOTE | 2020-12-14 03:15 | NURSING ---
Pt reports increased shortness of breath. Sitting on edge of the bed. Respirations even and unlabored. In no acute distress. Vitals obtained and recorded. Pt engaged in use of his cell phone and making little eye contact w/ nurse. With continued conversation, pt verbalizes shortness of breath has increased since CPAP removed and is in a sitting position. Thinks anxiety may be contributing to symptoms. Suggested Ativan to help relieve symptoms after 1:1, and pt is agreeable. Briefly discussed results of overnight oximetry after this nurse spoke w/ RT earlier in the shift. Will continue to monitor.
[2020-12-14] MEDS: LORazepam 1 MG Tablet PO ×3 (03:19→18:19)
[2020-12-14] MEDS: Fluticasone 0.05% 1 SPRAY NASAL.SRY NASAL ×2 (06:11→16:08)
[2020-12-14] MEDS: Enoxaparin 40 MG/0.4 ML Syringe SC (06:11)
[2020-12-14] MEDS: Nystatin Powder 15gm Bottle 1 APPLIC TOPICAL ×2 (06:12→23:42)
[2020-12-14] MEDS: Pantoprazole Sodium 20 MG Tablet PO (06:13)
[2020-12-14] MEDS: Sertraline 50 MG Tablet PO (06:13)
[2020-12-14] MEDS: Levothyroxine 100 MCG Tablet 200 MCG PO (06:13)
--- NOTE | 2020-12-14 08:15 | NURSING ---
Pt completed an unassisted transfer to the bathroom. Called for staff assist upon transfer back to bed. Instructed on importance of contacting staff for all mobility to prevent falls and ensure safety. Reports upon awakening, sudden onset to void and have a bm. Did not want staff to clean up any incontinence pt may have experienced. Further education needed.
[2020-12-14] MEDS: Multivitamins,Therapeutic Tablet 1 TABLET PO (08:31)
[2020-12-14 10:00] VITALS: PULSE 87; RESP 18
[2020-12-14 13:01] VITALS: BP 137/84; PULSE 73; RESP 18; TEMP 36.1; O2SAT 96
[2020-12-15 03:29] VITALS: BP 140/79; PULSE 78; RESP 18; TEMP 36.6; O2SAT 94
[2020-12-15] MEDS: Acetaminophen 500 MG Tablet 1000 MG PO (03:31)
[2020-12-15] MEDS: traMADol 50 MG Tablet PO ×2 (03:32→09:58)
[2020-12-15] MEDS: Enoxaparin 40 MG/0.4 ML Syringe SC (06:42)
[2020-12-15] MEDS: Nystatin Powder 15gm Bottle 1 APPLIC TOPICAL ×2 (06:42→20:37)
[2020-12-15] MEDS: Pantoprazole Sodium 20 MG Tablet PO (06:43)
[2020-12-15] MEDS: Levothyroxine 100 MCG Tablet 200 MCG PO (06:43)
[2020-12-15] MEDS: Sertraline 50 MG Tablet PO (06:44)
[2020-12-15] MEDS: Fluticasone 0.05% 1 SPRAY NASAL.SRY NASAL ×2 (06:45→17:02)
[2020-12-15] MEDS: Multivitamins,Therapeutic Tablet 1 TABLET PO (08:12)
[2020-12-15 12:12] VITALS: PULSE 61; RESP 14; O2SAT 97
[2020-12-15 16:29] VITALS: BP 122/80; PULSE 61; RESP 14; TEMP 36.9; O2SAT 97
[2020-12-15] MEDS: LORazepam 1 MG Tablet PO (17:01)
[2020-12-16 04:00] VITALS: BP 124/80; PULSE 66; RESP 18; TEMP 36.6; O2SAT 96
[2020-12-16] MEDS: Enoxaparin 40 MG/0.4 ML Syringe SC (05:21)
[2020-12-16] MEDS: Fluticasone 0.05% 1 SPRAY NASAL.SRY NASAL ×2 (05:21→18:20)
[2020-12-16] MEDS: Pantoprazole Sodium 20 MG Tablet PO (05:22)
[2020-12-16] MEDS: Levothyroxine 100 MCG Tablet 200 MCG PO (05:22)
[2020-12-16] MEDS: Nystatin Powder 15gm Bottle 1 APPLIC TOPICAL (05:22)
[2020-12-16] MEDS: Sertraline 50 MG Tablet PO (05:23)
[2020-12-16] MEDS: Acetaminophen 500 MG Tablet 1000 MG PO (05:25)
--- NOTE | 2020-12-16 08:43 | CASEMGMT ---
Social Work Followed up with pt that insurance approved with NRD 12/22. Pt responded, what, that is not enough time. Explained that is another week of approval. Pt sated still not enough. SW to continue to follow. Jill Krishna, SPECIAL DELIVERY CARRIER RADIOLOGY SCHEDULER
[2020-12-16 10:00] VITALS: RESP 16; O2SAT 97
[2020-12-16] MEDS: Multivitamins,Therapeutic Tablet 1 TABLET PO (12:24)
[2020-12-16] MEDS: LORazepam 1 MG Tablet PO (13:57)
[2020-12-16 14:22] VITALS: BP 147/90; PULSE 75; RESP 20; TEMP 36.4; O2SAT 95
[2020-12-16] MEDS: traMADol 50 MG Tablet PO (18:35)
[2020-12-17] MEDS: Nystatin Powder 15gm Bottle 1 APPLIC TOPICAL ×3 (00:03→22:26)
[2020-12-17 04:00] VITALS: BP 103/69; PULSE 68; RESP 16; TEMP 36.7; O2SAT 93
[2020-12-17] MEDS: Enoxaparin 40 MG/0.4 ML Syringe SC (05:58)
[2020-12-17] MEDS: Pantoprazole Sodium 20 MG Tablet PO (05:58)
[2020-12-17] MEDS: Fluticasone 0.05% 1 SPRAY NASAL.SRY NASAL ×2 (05:58→18:27)
[2020-12-17] MEDS: Levothyroxine 100 MCG Tablet 200 MCG PO (05:59)
[2020-12-17] MEDS: Sertraline 50 MG Tablet PO (05:59)
--- NOTE | 2020-12-17 07:36 | MDS.RN ---
Information for the mds was obtained from review of the clinical record, interview of resident, staff, and direct observation of resident's care.
[2020-12-17] MEDS: Multivitamins,Therapeutic Tablet 1 TABLET PO (09:11)
[2020-12-17] MEDS: LORazepam 1 MG Tablet PO (09:19)
--- NOTE | 2020-12-17 09:28 | NURSING ---
PT C/O EXTREME TIREDNESS AND ^ ANXIETY. ATIVAN GIVEN PER PT REQUEST. DECLINED NEED FOR PAIN MED THIS AM. WILL UPDATE DR KEBEDE. LAST TSH LEVEL CHECKED ON 11/28/20 ELEVATED. PT CONCERNED THYROID MAY BE WORSE.
--- NOTE | 2020-12-17 10:40 | CASEMGMT ---
Social Work Followed up with Reilly at to inquire about visit. Visit scheduled for 12/22 at 2 pm. Therapy notified. WENCESLAO JosephW
[2020-12-17] MEDS: traMADol 50 MG Tablet PO (12:47)
--- NOTE | 2020-12-17 13:44 | CASEMGMT ---
Addendum entered by Jlil Krishna 12/18/20 10:29: Contacted the number provided to pt to follow up on Medicare effective date. Telemarketing Agent stated it takes 24-48 hours to process and call back. SW to continue to follow. Original Note: Social Work Followed up with pt. Explained BH will visit him 12/22, [facility] will not have any beds available to accept him. [facility] can still accept but he will have a patient liability due of $1,162. Pt inquired about dropping [facility] and getting traditional [facility]. Explained that is his choice and can contact [place] and Medicare to see if that is a possibility, but generally, people have to wait until Medicare open enrollment. Pt unclear that [facility] was his Medicare coverage - reexplained that if that is dropped and Medicare is not able to accept now, he will be without coverage. Pt expressed frustration and asked SW to leave. Pt requested to see SW again. Pt on the phone with Medicare underwriting service representative and stated pt would disenroll from [facility] and enroll in Medicare A,B and D. However, rep did state she is unable to guarantee Medicare coverage will start 12/22/20. Pt expressed understanding that he may have a lapse in insurance coverage if that is the case. Rep to enroll with pt on the phone now and will provide confirmation number and phone number to notify of effective date and a card will be mailed to pt. Notified IDT. [place] Update will still be provided 12/22 and will await Medicare confirmation. SW to continue to follow. WENCESLAO Joseph
[2020-12-17 13:53] VITALS: BP 154/96; PULSE 65; RESP 18; TEMP 36.3; O2SAT 97
[2020-12-17 23:52] VITALS: PULSE 68; RESP 14
[2020-12-18] MEDS: Fluticasone 0.05% 1 SPRAY NASAL.SRY NASAL ×2 (05:41→16:40)
[2020-12-18] MEDS: Enoxaparin 40 MG/0.4 ML Syringe SC (05:42)
[2020-12-18] MEDS: Nystatin Powder 15gm Bottle 1 APPLIC TOPICAL ×2 (05:43→21:03)
[2020-12-18] MEDS: Pantoprazole Sodium 20 MG Tablet PO (05:43)
[2020-12-18] MEDS: Sertraline 50 MG Tablet PO (05:44)
[2020-12-18] MEDS: Levothyroxine 75 MCG Tablet 225 MCG PO (05:44)
[2020-12-18 06:14] VITALS: BP 129/74; PULSE 62; RESP 12; TEMP 37.1; O2SAT 95
[2020-12-18] MEDS: Multivitamins,Therapeutic Tablet 1 TABLET PO (09:00)
[2020-12-18] MEDS: LORazepam 1 MG Tablet PO ×2 (11:10→21:04)
[2020-12-18 15:38] VITALS: BP 137/77; PULSE 89; RESP 18; TEMP 36.9; O2SAT 92
[2020-12-18 16:29] VITALS: PULSE 64; RESP 14
[2020-12-19] MEDS: Enoxaparin 40 MG/0.4 ML Syringe SC (05:13)
[2020-12-19] MEDS: Fluticasone 0.05% 1 SPRAY NASAL.SRY NASAL ×2 (05:13→17:18)
[2020-12-19] MEDS: Pantoprazole Sodium 20 MG Tablet PO (05:14)
[2020-12-19] MEDS: Sertraline 50 MG Tablet PO (05:14)
[2020-12-19] MEDS: Levothyroxine 75 MCG Tablet 225 MCG PO (05:14)
[2020-12-19] MEDS: Nystatin Powder 15gm Bottle 1 APPLIC TOPICAL (05:15)
[2020-12-19 06:39] VITALS: BP 122/87; PULSE 73; RESP 14; TEMP 36.6
[2020-12-19 09:26] LABS: Absolute Lymphocyte Count 1.58 X10^3/uL (0.83-4.51); Absolute Neutrophil Count 7.9 X10^3/uL (2.0-7.7); Basophil# 0.06 X10^3/uL; Basophil% 0.5 % (0-1); Eosinophil# 0.27 X10^3/uL; Eosinophils% 2.5 % (0-5); Hemoglobin 13.5 g/dL (13.0-16.5); Lymphocyte # 1.58 X10^3/ul (0.83-4.51); Lymphocyte % 14.4 % (19-41); Mean Corp Hgb Conc 32.9 g/dL (32-36); Mean Corpuscular Hgb 32.9 pg (27.0-32.0); Mean Platelet Vol. 10.3 fl (6.2-12.0); Monocyte% 9.1 % (0-10); NRBC Flagged by Analyzer 0 % (0-5); Neutrophil # 7.88 X10^3/uL (2.7-7.7); Neutrophil % 72.1 % (47-70); Platelet Count 292 K/mm3 (150-450); RBC Distribution Width CV 13.4 % (11.6-14.6); RBC Distribution Width SD 49.9 fl (35.1-43.9); White Blood Count 10.9 K/mm3 (4.4-11.0)
[2020-12-19 09:56] LABS: Anion Gap 3 (5-15); BUN 14 mg/dL (7-18); BUN/Creat Ratio 12.3 RATIO (10-20); Calcium,Total 8.8 mg/dL (8.5-10.1); Chloride 106 mmol/L (98-107); Creatinine, Serum 1.14 mg/dL (0.70-1.30); EST Glomerular Filtration Rate 71 mL/min (>60); Est Glom Filt Rate - Afr Amer 86 mL/min (>60); Estimated Creatinine Clearance 65.19 ml/min; Glucose 77 mg/dL (74-106); Potassium 4.1 mmol/L (3.5-5.1); Sodium Level 139 mmol/L (136-145)
[2020-12-19] MEDS: Multivitamins,Therapeutic Tablet 1 TABLET PO (09:59)
[2020-12-19] MEDS: traMADol 50 MG Tablet 100 MG PO ×2 (12:05→20:55)
[2020-12-19 15:48] VITALS: BP 125/59; PULSE 79; RESP 16; TEMP 36.6; O2SAT 96
[2020-12-19] MEDS: Acetaminophen 500 MG Tablet 1000 MG PO (20:55)
[2020-12-20 01:02] VITALS: BP 128/50; PULSE 52; RESP 18; O2SAT 97
[2020-12-20] MEDS: LORazepam 1 MG Tablet PO ×2 (01:06→13:50)
--- NOTE | 2020-12-20 01:09 | NURSING ---
Pt called out, states that he feels funny, like I'm not right and feel faint, but that he needs to use the restroom but was afraid to go on his own, offered to assist with urinal, pt states he would like to try to walk to br, walked with pt into restroom without difficulty, pt voided and returned to bed, VSS, pt states he thinks he has anxiety, he was talking to his daughter on the phone about his roommate, who he evicted and feels like that made him anxious, given ativan per request, assisted with cpap, pt asked this nurse will you read me a bedtime story? while laughing. Encouraged pt to put his cpap on and try to sleep since he normally goes to bed before this late. Pt agreeable.
[2020-12-20 06:27] VITALS: BP 137/76; PULSE 68; RESP 18; TEMP 36.6; O2SAT 95
[2020-12-20] MEDS: Fluticasone 0.05% 1 SPRAY NASAL.SRY NASAL ×2 (06:28→16:58)
[2020-12-20] MEDS: Levothyroxine 75 MCG Tablet 225 MCG PO (06:29)
[2020-12-20] MEDS: Sertraline 50 MG Tablet PO (06:30)
[2020-12-20] MEDS: Pantoprazole Sodium 20 MG Tablet PO (06:30)
[2020-12-20] MEDS: Enoxaparin 40 MG/0.4 ML Syringe SC (06:31)
[2020-12-20] MEDS: Multivitamins,Therapeutic Tablet 1 TABLET PO (08:23)
[2020-12-20 13:52] VITALS: PULSE 78; RESP 16; O2SAT 96
[2020-12-20 16:00] VITALS: BP 116/72; PULSE 78; RESP 16; TEMP 36.6; O2SAT 96
[2020-12-20] MEDS: Acetaminophen 500 MG Tablet 1000 MG PO (20:07)
[2020-12-20] MEDS: traMADol 50 MG Tablet 100 MG PO (20:08)
[2020-12-21 06:07] VITALS: BP 111/63; PULSE 68; RESP 16; TEMP 36; O2SAT 96
[2020-12-21] MEDS: Enoxaparin 40 MG/0.4 ML Syringe SC (06:11)
[2020-12-21] MEDS: Levothyroxine 75 MCG Tablet 225 MCG PO (06:12)
[2020-12-21] MEDS: Sertraline 50 MG Tablet PO (06:12)
[2020-12-21] MEDS: Pantoprazole Sodium 20 MG Tablet PO (06:12)
[2020-12-21] MEDS: LORazepam 1 MG Tablet PO ×2 (07:04→19:51)
[2020-12-21] MEDS: Multivitamins,Therapeutic Tablet 1 TABLET PO (08:14)
[2020-12-21] MEDS: traMADol 50 MG Tablet 100 MG PO (13:33)
[2020-12-21 15:40] VITALS: BP 121/87; PULSE 61; RESP 17; TEMP 36.3; O2SAT 93
[2020-12-21] MEDS: Fluticasone 0.05% 1 SPRAY NASAL.SRY NASAL (16:03)
[2020-12-22] MEDS: Enoxaparin 40 MG/0.4 ML Syringe SC (06:35)
[2020-12-22] MEDS: Fluticasone 0.05% 1 SPRAY NASAL.SRY NASAL ×2 (06:37→18:12)
[2020-12-22] MEDS: Pantoprazole Sodium 20 MG Tablet PO (06:38)
[2020-12-22] MEDS: Levothyroxine 75 MCG Tablet 225 MCG PO (06:38)
[2020-12-22] MEDS: Sertraline 50 MG Tablet PO (06:38)
[2020-12-22 06:41] VITALS: BP 134/76; PULSE 68; RESP 16; TEMP 36.4; O2SAT 96
[2020-12-22] MEDS: Multivitamins,Therapeutic Tablet 1 TABLET PO (08:28)
[2020-12-22] MEDS: LORazepam 1 MG Tablet PO ×2 (10:47→18:16)
[2020-12-22] MEDS: traMADol 50 MG Tablet 100 MG PO ×2 (10:47→18:16)
--- NOTE | 2020-12-22 12:49 | CASEMGMT ---
Social Work Patient reports to have switched insurance companies. This social media marketing manager working with patient to confirm patient insurance coverage status. Per patient patient reports to now have Medicare A and B as of today, December 22, 2020. Telephone call to Medicare hotline: . Medicare rep. reports that there is a 10 day processing time and patient called on 12/17/2020. This social media marketing manager updated patient of this information. Patient request for this social media marketing manager to contact [employer] to confirm patient pending application. Telephone call to [employer], [phone]. [employer] reports to have received patient application but unable to process application as patient has an outstanding balance of $109.60. Patient is to call [phone] to pay balance and then to have application processed. This social media marketing manager updated patient on above information. Patient plans to contact the above number. Social work to continue to follow as needed. Sandy BILLY, DEYA
[2020-12-22 13:14] VITALS: BP 137/81; PULSE 82; RESP 20; TEMP 36.3; O2SAT 94
--- NOTE | 2020-12-22 14:41 | BH.NOTE ---
BH: Inpatient Note - Notes Behavioral Health Inpatient Note: 12/22/20 14:41 Referral to Behavioral Health by [facility] drug abuse social worker due to depression and anxiety. Met with pt in his room. Pt reports long-standing hx of depression and anxiety. Was recently admitted to medical stabilization program due to alcohol use. Pt reports decompensation of mental health since the beginning of the COVID-19 pandemic. Reports isolation and loneliness which eventually led to a sedentary lifestyle ultimately impacting his medical condition (CP) and ability to care for himself. Pt states that he was 85% independent prior to the pandemic however currently is only 15% independent. Unable to care for himself, shop, complete ADLs, and even cook. Spends most of his day alone on the couch playing video games. Limited support. I have no friends. Loss of independence and functioning ultimately led to increased alcohol use. Recent conflict with roommate which led to roommate leaving. Fearful that being alone with limited functioning will result in further decompensation. Endorses anxiety and panic attacks however is vague regarding symptoms and it appears the triggers are situational. Limited healthy coping skills for stress, anxiety, and depression. No family hx of mental illness reported. Previous psychiatric admission as a teenager for behavioral and defiance concerns. My parents said I could go to this place for therapy [facility]. Denies suicidal ideations, plan, or intent. We discussed treatment options. Pt is currently waiting to hear if he will enter a intermediate for rehab or return to his apartment. Concern that pt will decompensate emotionally and physically if he returns home without some type of interventions in place. We discussed IOP level of care however due to current medical issues pt feels that 3 hours of treatment several a days a week would be too physically challenging. Was agreeable to referrals to traditional outpatient services. Given referrals to [facility], and [facility] for counselling and psychiatriatry.
--- NOTE | 2020-12-22 18:21 | NURSING ---
upkeep worker talking to resident in room. After she walks out he rings out and states I need drugs! States he has been having more anxiety and anxiety attacks since hospitalization. He thinks part of the problem is they switched my meds around. States he takes Celexa 40 mg at home and not zoloft. Also states Ultram 100 mg is not effective for pain. Will update Dr Carrion regarding both.
--- NOTE | 2020-12-22 19:35 | CASEMGMT ---
KIZZY Note KIZZY received phone call from Bertha advising patient was issued a cut letter/NOMNCs. His last covered day is 12/24 and he has to leave on 12/25. KIZZY went into patient's room. Patient had counselor in with him and gave permission to speak to him in the counselor's presence. REBA Garcia was present . Reviewed NOMNC and patient signed that he was explained the process and form he signed. Patient said why are you being so redundant?. Patient then said I dont have [facility] anymore.. I fired them last week. I have Medicare now and they will pay more than half of what [facility] does. SW explained that there needs to be a medical necessity to warrant continued treatment regardless of insurance provider. Patient said well, they were supposed to put in my PT report today and RN stated that the report had been submitted to insurance. Patient said that he wishes to appeal the NOMNCs. KIZZY advised that the 3rd alliance party provider will review the clinical information to determine if they agree with insurance company issued a discharge date or if they agree with patient needing more therapy or nursing. Patient was advised that [facility] can take as long as they'd like to get back to the decision which means if patient remains past your discharge date without an outcome and [facility] does not agree with your request to extend your stay patient will be responsible for paying out of pay for the days not covered by insurance which is $660/day. KIZZY updated Bertha via text. [facility]tha was advised that patient wants to appeal. KIZZY spoke to Jill Sanders. She advised that patient's medicare was not confirmed and there is no guarantee that it will be backdated. Jill advised patient's only recourse is to appeal. KIZZY was updated about patient's desire for appeal KIZZY made copies of the NOMNC and kept copy and put original in Jill Sanders's office. KIZZY spoke to patient again and advised him that if patient appeals there is no guarantee the determination will be overturned. KIZZY explained that patient has a balance and patient said I paid off the balance today with Jess. KIZZY again reiterated that there is no guarantee that insurance will approve additional days. Patient focused on he can't manage at home due to his Cerebral Palsy. KIZZY faxed signed letter to . Confirmation received. KIZZY spoke to Tamika Smiley and updated her regarding patient and his desire to appeal. KIZZY will send email to Elle Goldberg and Rukhsana Aponte advising of the appeal. KIZZY sent fax to Elle Goldberg and Rukhsana Khna updating them about the appeal. Plan: Follow up with [facility] social work nurse on Monday Saniya ZHENG
[2020-12-22 23:43] VITALS: PULSE 75; RESP 12
[2020-12-23] MEDS: Enoxaparin 40 MG/0.4 ML Syringe SC (05:18)
[2020-12-23] MEDS: Fluticasone 0.05% 1 SPRAY NASAL.SRY NASAL ×2 (05:18→17:03)
[2020-12-23] MEDS: Pantoprazole Sodium 20 MG Tablet PO (05:19)
[2020-12-23] MEDS: Levothyroxine 75 MCG Tablet 225 MCG PO (05:19)
[2020-12-23] MEDS: Sertraline 50 MG Tablet PO (05:19)
[2020-12-23 07:17] VITALS: BP 114/71; PULSE 65; RESP 14; TEMP 36.8
[2020-12-23] MEDS: Multivitamins,Therapeutic Tablet 1 TABLET PO (08:19)
--- NOTE | 2020-12-23 09:45 | CASEMGMT ---
Social Work Met with patient in room. This social media specialist broached discharge plan for patient in the event that patient does not win appeal. Patient reports to have not yet initiated the appeal. This social media specialist advised patient that patient has until noon today to initiate the appeal, patient voiced understanding. Patient reports plan is to discharge to a longterm under Medicaid and pay $1200 patient liability. Patient continues to states I am just not ready to go home. Patient reports frustrations with family not wanting to help. Active support provided. Patient reports first choice for longterm as [facility]. This social media specialist educating patient that [facility] has declined patient. Patient states plan to call [facility] and look into this. Patient was educated that [facility] has accepted patient, patient voiced understanding. Social work to continue to follow. Sandy BILLY, DEYA
[2020-12-23 10:00] VITALS: RESP 16
--- NOTE | 2020-12-23 10:41 | CASEMGMT ---
Addendum entered by Amie Johnston 12/23/20 11:19: Transfer to extended care facility initiated. Patient to discharge under [facility] level of care. Original Note: Social Work Telephone call from [facility]. Patient has initiated appeal. Case#[id number]. EMR:[id number]. Appeal information provided to Rukhsana in HIM via e-mail. Patient reports to have spoken with [place], Fabricio confirms to decline patient. Patient is agreeable to [facility] and request for this high school social studies teacher to confirm discharge plan to [facility] for Monday if appeal is lost. Telephone call to Elle Bob ([phone]). Elle confirms to be able to accept patient at time of discharge if appeal is lost. Elle request for updated clinical information to be faxed to [phone]. Updated clinical information faxed to [facility]. PLAN: [place] pending appeal. Sandy BILLY, KONSTANTINS
[2020-12-23] MEDS: LORazepam 1 MG Tablet PO ×2 (11:01→20:20)
--- NOTE | 2020-12-23 12:35 | CASEMGMT ---
Social Work PASRR completed. Level of Care to be obtained due to patient transitioning under Medicaid to [facility] pending appeal. This social science analyst updated patient that patient is financially responsible for $1200 per [place] and is to have funds with patient on patient admission to [place] per [place] (Elle). Patient voiced understanding. PLAN: [place] pending appeal. Level of care to be submitted when all documents are obtained. Sandy BILLY, ARMEN-S
[2020-12-23 14:27] VITALS: BP 124/81; PULSE 67; RESP 16; TEMP 36.8; O2SAT 92
--- NOTE | 2020-12-23 14:58 | CHAPLAIN ---
Type of Pastoral Visit ___ Initial Visit _x__ Follow-up Visit ___ On-call Visit ___ General Patient Visit ___ Spiritual Assessment ___ Family Conference ___ Bereavement ___ Rapid Response ___ Code Blue ___ Other (describe below) Pastoral Care Referral From _x__ Patient ___ Family ___ Nurse ___ Physician ___ Crab Catcher ___ Research Program Intern ___ Other (describe below) Sacrament/Intervention _x__ Active listening ___ Anointing ___ Christian ___ Bereavement ___ Communion ___ Amarilys exploration ___ _x__ Life review _x__ Prayer ___ Reconciliation ___ Sacrament of Sick ___ Supportive presence ___ Wedding ___ Other (describe below) Pastoral Comments
[2020-12-23] MEDS: oxyCODONE 5 MG Tablet PO (17:03)
--- NOTE | 2020-12-23 19:23 | DS.PCM_ITS ---
Providers Date of Admission: 12/04/20 Primary Care Physician: Dr. Sai Cobian MD Consultations 12/11/20 07:51 Consult: ENT Routine Consulting Provider: Davy Pretty Reason for Consult: Ears popping EMERGENT Consult: No MD Notified: Yes Date Notified:: 12/11/20 Time Notified: 07:51 Method of Notification: Answering Service Reason For Visit: ALCOHOL WITHDRAW AND DELIRIUM Diagnosis Discharge Diagnosis (1) Objective tinnitus of both ears: Status: Acute Code(s): H93.13 - Tinnitus, bilateral Medications at Discharge Home Medications calcium carbonate 500 mg PO Q6H PRN PRN tablet 11/01/18 omeprazole 20 mg PO DAILY 02/05/19 albuterol sulfate 1 - 2 puff INHALATION Q4H PRN PRN #1 inhaler 02/04/20 baclofen 10 mg PO TID PRN PRN 11/22/20 fluticasone propionate 1 spray NASAL BID 12/04/20 hydroxyzine pamoate 50 mg PO Q4H PRN PRN #1 cap 12/04/20 multivitamin 1 tab PO DAILY 12/04/20 acetaminophen 1,000 mg PO Q6H PRN PRN #0 tab 12/23/20 citalopram 40 mg PO DAILY #0 tab 12/23/20 levothyroxine 225 mcg PO DAILY@0600 #0 tab 12/23/20 lorazepam 1 mg PO Q4H PRN PRN 7 Days #42 tab 12/23/20 peg [id number] [Artificial Tears([id number])] 1 drp EACH EYE Q1H PRN #0 ml 12/23/20 Hospital Course Operations None Procedures None Summary of Care Provided Minutes Spent on Discharge: 35 Hospital Course: 55 year old male with below past medical history hospitalized for alcohol detoxification, complicated by depression, anxiety, admitted to TCU with debility, here for rehabilitation, strengthening, prior to discharge home alone. Discharge to [facility] 12/25/2020. Physical Exam Const alert and oriented x3 General Appearance: cooperative HEENT normocephalic Eyes PERRL and EOMs intact bilaterally Neck supple, no JVD and no carotid bruits Resp normal respiratory effort, normal air movement and clear to auscultation bilaterally Cardio regular rate and regular rhythm GI normal to inspection, nondistended, normoactive bowel sounds, non-tender and non-distended Extremity normal capillary refill General Extremity: Negative for edema Skin no rashes or lesions noted General Skin Exam: no breakdown Psych affect normal Appearance: appropriate ABG / Lab / Microbiology Data Result Diagrams: 12/19/20 09:07 12/19/20 09:07 D/C Instructions Discharge Diet: No restrictions Discharge Activity: Return to Normal Activity, May Shower and Use Walker Weight Bearing Status: Weight bearing as tolerated Call your doctor if you observe: Fever of 101 or Higher, Inability to urinate, Inability to have a bowel movement, Shortness of breath, Fainting spells, Chest pain and Uncontrolled pain Additional Instructions: Discharge to [facility] 12/25/2020. Meaningful Use Info Meaningful Use Diagnoses (Choose all that apply): None applicable Discharge Plan Admission Admit Date/Time: 12/04/20 18:56 Primary Reason for Your Visit: Debility Attending Provider: Gage Carrion Chi Primary Care Provider: Sai Cobian Consulting Providers: Davy Pretty Instructions Additional Instructions / Restrictions: Discharge to [facility] 12/25/2020. Discharge Orders/Prescriptions Prescriptions: New acetaminophen 500 mg Tablet 1,000 mg PO Q6H PRN PRN (Reason: Pain Score 1-5) Qty: 0 RF: 0 levothyroxine 75 mcg Tablet 225 mcg PO DAILY@0600 Qty: 0 RF: 0 citalopram 40 mg Tablet 40 mg PO DAILY Qty: 0 RF: 0 lorazepam 1 mg Tablet 1 mg PO Q4H PRN PRN (Reason: Anxiety) 7 Days Qty: 42 RF: 0 Artificial Tears([id number]) 1-0.2-0.2 % Drops 1 drp EACH EYE Q1H PRN (Reason: DRY EYES) Qty: 0 RF: 0 Continued calcium carbonate 500 MG tablet 500 mg PO Q6H PRN PRN (Reason: Indigestion) RF: 0 omeprazole 20 MG capsule 20 mg PO DAILY RF: 0 albuterol sulfate 1 INHALER inhaler 1 - 2 puff inhalation Q4H PRN PRN (Reason: Wheezing) Qty: 1 RF: 0 baclofen 10 mg tablet 10 mg PO TID PRN PRN (Reason: Muscle Spasm) RF: 0 hydroxyzine pamoate 25 mg Capsule 50 mg PO Q4H PRN PRN (Reason: mild anxiety) Qty: 1 RF: 0 multivitamin Tablet 1 tab PO DAILY RF: 0 fluticasone propionate 50 mcg/actuation spray,suspension 1 spray NASAL BID RF: 0 Discontinued levothyroxine 100 mcg tablet 200 mcg PO DAILY@0600 RF: 0 citalopram 20 mg tablet 20 mg PO DAILY RF: 0 sertraline 50 mg tablet 25 mg PO DAILY RF: 0 Referrals / Follow Up: Sai Cobian MD [Primary Care Provider] - Disposition Disposition (needs filled in before D/C Order can be placed): NonSkilled NH/Intermed Care
--- NOTE | 2020-12-23 19:30 | TREXTCAR_ITS ---
Diet 12/04/20 19:10 Diet: Regular - General Food consistency:: Regular Liquid Consistency:: Regular/Thin Routine Orders/Code Status Suppository Type: Dulcolax 10mg Suppository Frequency: Daily PRN Code Status: Full Code Therapies Weight Bearing: Weight bearing as tolerated Extremity Affected:: Bilateral Lower Physical Therapy: Eval and Treat Occupational Therapy: Eval and Treat Problem/Diagnosis (1) Objective tinnitus of both ears: Status: Acute Allergies/Procedures Done in Hospital Allergies No Known Allergies Allergy (Verified 11/28/20 02:50) Type of Care/Length of Stay Estimated LOS: Convalescent Care Less Than 30 days Type of Care Needed: Intermediate Rehab Potential: Good Prognosis: Good Additional Orders/Day of Discharge Day of Discharge: 12/25/20 Dietary and Speech Recommendations Dietitian Recommendations/Changes: Will continue diet as ordered Follow Up Care Please follow up with your Primary Care Physician in: Sai Cobian When: 1 week. Discharge Plan Admission Admit Date/Time: 12/04/20 18:56 Primary Reason for Your Visit: Debility Attending Provider: Gage Carrion Chi Primary Care Provider: Sai Cobian Consulting Providers: Davy Pretty Instructions Additional Instructions / Restrictions: Discharge to [facility] 12/25/2020. Discharge Orders/Prescriptions Prescriptions: New acetaminophen 500 mg Tablet 1,000 mg PO Q6H PRN PRN (Reason: Pain Score 1-5) Qty: 0 RF: 0 levothyroxine 75 mcg Tablet 225 mcg PO DAILY@0600 Qty: 0 RF: 0 citalopram 40 mg Tablet 40 mg PO DAILY Qty: 0 RF: 0 lorazepam 1 mg Tablet 1 mg PO Q4H PRN PRN (Reason: Anxiety) 7 Days Qty: 42 RF: 0 Artificial Tears(br-sroy-sfrg) 1-0.2-0.2 % Drops 1 drp EACH EYE Q1H PRN (Reason: DRY EYES) Qty: 0 RF: 0 Continued calcium carbonate 500 MG tablet 500 mg PO Q6H PRN PRN (Reason: Indigestion) RF: 0 omeprazole 20 MG capsule 20 mg PO DAILY RF: 0 albuterol sulfate 1 INHALER inhaler 1 - 2 puff inhalation Q4H PRN PRN (Reason: Wheezing) Qty: 1 RF: 0 baclofen 10 mg tablet 10 mg PO TID PRN PRN (Reason: Muscle Spasm) RF: 0 hydroxyzine pamoate 25 mg Capsule 50 mg PO Q4H PRN PRN (Reason: mild anxiety) Qty: 1 RF: 0 multivitamin Tablet 1 tab PO DAILY RF: 0 fluticasone propionate 50 mcg/actuation spray,suspension 1 spray NASAL BID RF: 0 Discontinued levothyroxine 100 mcg tablet 200 mcg PO DAILY@0600 RF: 0 citalopram 20 mg tablet 20 mg PO DAILY RF: 0 sertraline 50 mg tablet 25 mg PO DAILY RF: 0 Referrals / Follow Up: Sai Cobian MD [Primary Care Provider] - Disposition Disposition (needs filled in before D/C Order can be placed): NonSkilled NH/Intermed Care
[2020-12-24 06:26] VITALS: BP 113/52; PULSE 78; RESP 16; TEMP 36.4; O2SAT 92
[2020-12-24] MEDS: Pantoprazole Sodium 20 MG Tablet PO (06:27)
[2020-12-24] MEDS: Enoxaparin 40 MG/0.4 ML Syringe SC (06:27)
[2020-12-24] MEDS: Citalopram 40 MG TABLET PO (06:27)
[2020-12-24] MEDS: Levothyroxine 75 MCG Tablet 225 MCG PO (06:27)
[2020-12-24] MEDS: Fluticasone 0.05% 1 SPRAY NASAL.SRY NASAL ×2 (06:28→17:17)
[2020-12-24] MEDS: Multivitamins,Therapeutic Tablet 1 TABLET PO (09:30)
[2020-12-24] MEDS: oxyCODONE 5 MG Tablet PO ×2 (09:41→17:22)
--- NOTE | 2020-12-24 10:39 | CASEMGMT ---
Addendum entered by Jill Krishna 12/24/20 11:34: Referred to [facility] PT/OT. Original Note: Social Work Received call from Elle at [facility] that she spoke with pt and he is now saying he does not have the funds to pay for the patient liability. He stated he does not want use his parents money because he is a proud man. Followed up with patient to discuss patient liability and DC plans. Pt reiterated he cannot go to a SNF because he cannot pay for the patient liability, I guess I'll go home. Explained SW to order HHC PT/OT. Pt continued state he needs daily therapy and that will not be enough - he needs to stretch and 30 minutes twice a day is not enough. Expressed understanding; however, explained there are no other options besides skilled HHC and SNF. Pt stated understanding but continued to reiterate needs. Pt inquired who gave him a discharge date - [place] or Medicare. Explained [place] Medicare his current and primary payor. Pt inquired confused stating he thought he had Medicare. Explained ARMEN Holloway, discussed all of that information with him prior and this worker reexplained Medicare is currently not effective as the bill needed to be paid to [facility] and it takes 10 days to process, thus, he still remains under [facility], and they issued the DC date and that is whom pt is appealing. Redirected conversation to get final DC plans in place - pt reiterated home with HHC. SW encouraged to get transport in place for 6/4 in case he does not win appeal. SW will begin referring to agencies. Will continue to follow and await appeal outcome. Jill Krishna, WENCESLAO STAFFORD
--- NOTE | 2020-12-24 12:18 | OT ---
Pt has been coming to therapy room on his own to stretch his legs/ankles using // bars. Then pt self transfers to/from w/c to the nustep. Educated pt that he is not allowed in therapy room when there is no therapist present. And that he is not to self transfer to nustep. Pt states he understands.
[2020-12-24 13:20] VITALS: BP 116/75; PULSE 68; RESP 18; TEMP 36.7; O2SAT 94
--- NOTE | 2020-12-24 16:30 | CASEMGMT ---
Social Work Spoke with patient regarding patient's concerns. Patient expressed concerns regarding insurance issues and how this is impacting discharge planning: ability to continue with therapy, limited financial resources, and level of perceived advocacy by staff for patient's continued treatment. Patient reports to have Cerebral Palsy, for which he has been on SSDI for over 20 years. During conversation patient covered topics such as history of raising three kids on his own, depression increasing during COVID pandemic, limited support from children at this time, and belief that others discredit patient's level of intelligence. Supportive listening offered and encouragement for patient voicing concerns and advocating for self. Patient asked about the hospital's care assurance application and reports was told there is another application for financial assistance if patient is over the Care Assurance Threshold, which the patient is. This sheet writer agreed that social work can follow up with patient financial services about this secondary application. Note, during social work intervention this date, the patient made comments that if goes home before has had enough therapy, that it will be bad and not sure what will happen. Patient made this vague comment several times. Explored with patient what patient means by these comments. Patient vague in response, so explored safety and whether patient having any suicidal thoughts, or whether this is what patient means by comments made. Patient denies suicidal thoughts, and laughed and commented that should not have said anything like what was said to this sheet writer. Patient denies access to lethal means. No reported past attempts at suicide. Patient is future oriented, as is focused on getting more therapy, and having care needs met after leaving TCU. Noted that [facility] department was in to see patient during this admission. This sheet writer referenced the visit and offered to help get patient set up with aftercare services. Patient reports to know several counseling agencies that can go to. This sheet writer offered to have hospital social work get patient a counseling appointment set in place at time of discharge, whenever discharge may be. Patient declined offered and reported that capable to make own appointments and will do this on own. Plan: Collaborate with WENCESLAO Melchor for TCU on 12.25.20 regarding patient's continued social work needs. -DEYA Alberts, WENCESLAO Lead Central Supply Worker
--- NOTE | 2020-12-24 19:04 | CM.ED ---
KIZZY Note: SW was advised by [facility] Aquatic Facility Manager, Jill that patient's appeal was denied. SW went to TCU and updated nursing staff that patient's appeal was denied. SW met with patient in his room. Patient was playing video game while sitting in his chair. He was noted to be comfortable and in no distress. SW advised that patient's appeal was denied and he had to be discharged tomorrow. Patient said no I don't.. I can file again. Patient was asked if he wanted transportation to be arranged at 10 am or someone to pick him up and he said I got nobody. Patient voiced he is not being discharged and he will file appeal. Patient said that he did not like this proposal writer's tone. Plan: To be determined Saniya ZHENG
[2020-12-24] MEDS: LORazepam 1 MG Tablet PO (19:45)
--- NOTE | 2020-12-24 20:10 | CASEMGMT ---
SW Note SW emailed Jill Stone and Tamika Smiley updating them regarding patient's stay being denied. SW went to TCU. Susan RN went with this creative services writer. Patient was provided with phone number for Cam [phone]. Patient said I have it.. I know it. SW stated he could follow up with TCU public health social worker tomorrow () SW email Elle Goldberg and Rukhsana Lopez and advised them that patient wants to appeal. Plan: To be determined. Saniya ZHENG
--- NOTE | 2020-12-24 20:19 | NURSING ---
This nurse entered room with ER Saniya DURAND, who gave pt contact # to start appeals process again.
--- NOTE | 2020-12-24 20:30 | NURSING ---
Pt informed this nurse he would like contact information for the patient advocate. Given phone numbers for the [facility] at [phone] or . Pt then requests name of patient advocate for the hospital. Provided contact name for patient advocate for the hospital and verbalizes request to speak to TCU Director tomorrow prior to scheduled discharge by 1000. Informed pt this nurse will send a message to the director to follow-up.
[2020-12-24 23:20] VITALS: PULSE 78; RESP 14
[2020-12-25] MEDS: oxyCODONE 5 MG Tablet PO ×2 (00:50→20:55)
[2020-12-25] MEDS: Fluticasone 0.05% 1 SPRAY NASAL.SRY NASAL ×2 (06:11→17:26)
[2020-12-25] MEDS: Levothyroxine 75 MCG Tablet 225 MCG PO (06:11)
[2020-12-25] MEDS: Pantoprazole Sodium 20 MG Tablet PO (06:11)
[2020-12-25] MEDS: Citalopram 40 MG TABLET PO (06:11)
[2020-12-25] MEDS: Enoxaparin 40 MG/0.4 ML Syringe SC (06:11)
[2020-12-25 06:45] VITALS: BP 102/59; PULSE 74; RESP 14; TEMP 37
[2020-12-25] MEDS: LORazepam 1 MG Tablet PO ×2 (08:20→17:42)
[2020-12-25] MEDS: Multivitamins,Therapeutic Tablet 1 TABLET PO (08:20)
--- NOTE | 2020-12-25 09:30 | CASEMGMT ---
Social Work Followed with Jill BILLY for TCU, collaborated regarding patient's expressed concerns to this production underwriter on 12.24.2020. Discussed also the patient's inquiry about financial assistance applications. Jill to follow up with patient financial services on this secondary application patient had discussed with this production underwriter. During collaboration with Jill, this production underwriter received a call from Organizational Effectiveness Director stating that patient is requesting to talk to a social media specialist and expressing concern about being asked to leave. This production underwriter aware that patient's appeal was denied on 12.24.2020, and that patient was given information on how initiate a reconsideration. Presented to patient's room, along with Jill. Listened to patient's concerns. Patient reports has found out that [employer] was discontinued and Medicare effective as of December 22. Patient reports this was learned via automatic system, not a real person. Discussed with patient that TCU staff can recheck the insurance status and verify. Patient questioned whether social work did not believe the patient. Let patient know that it is not a matter of not believing the patient, but rather a a normal hospital process to verify insurance status when reports are made about changes in coverage. Discussed that if patient wants to initiate a reconsideration that can do this concurrently while TCU is checking insurance, so that patient does not miss window for reconsideration if for some reason [employer] is still showing as active. Reinforced that this is patent's choice as to what patient decides to do about the insurance denial. Plan: Jill to continue to follow and assist with social work needs for this patient. -MARCE Alberts MSW Lead Skin Care Consultant
--- NOTE | 2020-12-25 09:43 | NURSING ---
Discharge instructions reviewed with patient. Script provided. pt denies further questions.
[2020-12-25 09:47] VITALS: PULSE 75; RESP 18; O2SAT 93
--- NOTE | 2020-12-25 10:08 | NURSING ---
This rfp writer phoned Joanna from [facility] re: this patient to verify patient's coverage. Patient has stated to JOE DURAND that he dropped his coverage as of 12/21/2020. I spoke to Joanna from [place] and she verified that patient has had coverage from 04/23/2020-12/21/2020. Call REF# [id number]. JOE DURAND made aware.
--- NOTE | 2020-12-25 12:51 | CASEMGMT ---
Addendum entered by Jill Krishna 12/25/20 15:03: Received confirmation and explained to pt, Medicare days with not restart since [place] is a Medicare product. Thus, pt is on day which begins his copay days. Pt expressed understanding. Original Note: Social Work Collaborated with Lead KIZZY and TCU Director to follow up to assist pt with questions, options moving forward since appeal was denied, and with pt request to file reconsideration. All parties met with pt in room. Explained to file reconsideration pt to contact Lizzy again at the provided number. Pt stated [facility] spoke with him that appeal was denied because as of 12/22/20, he terminated his coverage with [facility]. This worker had not received that information and advised to still complete reconsideration with Lizzy in case [facility] was still covering stay, while this worker collaborates with Admissions/Insurance CM to determine coverage to ensure pt does not miss deadline since he continues to express he wants to remain in TCU. Pt agreed. Also discussed Medicare coverage as that information has not been given to billing department at this time and when KIZZY spoke with [employer] last, it could take up to 10 business days to process; thus, pt may have lapse in coverage currently. Encouraged pt to continue to contact [employer] as they would be the company to advise when/if he has Medicare coverage. Explained currently, without confirmation of any active insurance coverage, pt will be treated as private pay and would be billed $660/day all inclusive, if appropriate. Pt inquired about continuing with therapy - confirmed. Pt inquired about DCing any time if he is concerned about cost - confirmed. This worker assured the DC plan is still in place and will facilitate to ensure he has appropriate needs addressed. Discussed other potential options - pt could DC home and once receives confirmation of insurance coverage, be a community admit to a SNF. Explained SW sent LOC to [facility] when pt wished to tx to [place] and LOC approved and PASRR is valid for 60 days even if he returns to the community - [facility] has that information, if he would choose to admit there. Offered HHC could assist in the SNF admission if he DC'd home as well. Presented all options to pt but acknowledge all of the options and information is overwhelming and encouraged to focus on present with those decisions. SW to assist and reiterate information as needed with each route. Pt expressed understanding and agreed to contact Frandy Schulz while this worker continues to pursue other information. Collaborated with Admissions/Insurance CM to speak with [facility] and [facility] registration on pt's current insurance. It was confirmed pt terminated coverage with [facility] effective 12/22 and Medicare A, B and D are effective 12/22. Provided change of insurance to IDT. This worker and TCU Director spoke with pt in room and confirmed change in insurance coverage and will not be billed private pay. Explained therapy will complete new evaluation to determine treatment plan and goals and will take it day by day. SW will continue to assist with DC plans. Followed up with [facility] on acceptance/denial - they denied pt d/t no skillable need for therapy. [facility]erred [facility] - they denied d/t no treating dx for therapy and no skillable need for therapy. Referred to [facility] - reviewing information. Will continue to follow. Jill Krishna, WENCESLAO SWAINW
--- NOTE | 2020-12-25 13:49 | MDS.RN ---
New 5 day MDS assessment for VIVIENNE 12/28/20 entered for [facility]
[2020-12-25 14:40] VITALS: BP 115/65; PULSE 75; RESP 16; TEMP 36.7; O2SAT 95
--- NOTE | 2020-12-25 15:01 | CASEMGMT ---
Social Work Left message with [facility] to inquire about getting patient second application for Care Assurance, per pt request to Lead SW. Jill Krishna, WASTE COLLECTION DRIVER BROKERAGE CLERK
[2020-12-26 04:00] VITALS: BP 116/73; PULSE 67; RESP 16; TEMP 36.3; O2SAT 93
[2020-12-26] MEDS: Fluticasone 0.05% 1 SPRAY NASAL.SRY NASAL ×2 (05:26→18:24)
[2020-12-26] MEDS: Pantoprazole Sodium 20 MG Tablet PO (05:29)
[2020-12-26] MEDS: Enoxaparin 40 MG/0.4 ML Syringe SC (05:29)
[2020-12-26] MEDS: Citalopram 40 MG TABLET PO (05:29)
[2020-12-26] MEDS: Levothyroxine 75 MCG Tablet 225 MCG PO (05:29)
[2020-12-26 08:38] LABS: Absolute Lymphocyte Count 1.63 X10^3/uL (0.83-4.51); Absolute Neutrophil Count 6.3 X10^3/uL (2.0-7.7); Basophil# 0.03 X10^3/uL; Basophil% 0.3 % (0-1); Eosinophil# 0.21 X10^3/uL; Eosinophils% 2.3 % (0-5); Hematocrit 39.3 % (40-54); Hemoglobin 13.2 g/dL (13.0-16.5); Lymphocyte # 1.63 X10^3/ul (0.83-4.51); Lymphocyte % 17.8 % (19-41); Mean Corp Hgb Conc 33.6 g/dL (32-36); Mean Corpuscular Hgb 33.9 pg (27.0-32.0); Mean Platelet Vol. 10.9 fl (6.2-12.0); Monocyte# 0.93 X10^3/uL; Monocyte% 10.1 % (0-10); NRBC Flagged by Analyzer 0 % (0-5); Neutrophil # 6.31 X10^3/uL (2.7-7.7); Neutrophil % 68.7 % (47-70); Platelet Count 227 K/mm3 (150-450); RBC Distribution Width CV 13.3 % (11.6-14.6); RBC Distribution Width SD 49.3 fl (35.1-43.9); Red Blood Count 3.89 M/mm3 (4.6-6.2); White Blood Count 9.2 K/mm3 (4.4-11.0)
[2020-12-26] MEDS: Multivitamins,Therapeutic Tablet 1 TABLET PO (08:55)
[2020-12-26 09:16] LABS: Anion Gap 4 (5-15); BUN 18 mg/dL (7-18); BUN/Creat Ratio 17.1 RATIO (10-20); Calcium,Total 8.9 mg/dL (8.5-10.1); Chloride 105 mmol/L (98-107); Creatinine, Serum 1.05 mg/dL (0.70-1.30); EST Glomerular Filtration Rate 78 mL/min (>60); Est Glom Filt Rate - Afr Amer 95 mL/min (>60); Estimated Creatinine Clearance 70.77 ml/min; Glucose 102 mg/dL (74-106); Potassium 4.1 mmol/L (3.5-5.1); Sodium Level 138 mmol/L (136-145)
[2020-12-26 10:00] VITALS: PULSE 64; RESP 16; O2SAT 98
[2020-12-26] MEDS: LORazepam 1 MG Tablet PO ×2 (10:58→18:27)
[2020-12-26 14:09] VITALS: BP 118/58; PULSE 75; RESP 16; TEMP 36.5; O2SAT 94
[2020-12-27 04:00] VITALS: BP 107/53; PULSE 61; RESP 15; TEMP 35.7; O2SAT 95
[2020-12-27] MEDS: Pantoprazole Sodium 20 MG Tablet PO (05:18)
[2020-12-27] MEDS: Citalopram 40 MG TABLET PO (05:18)
[2020-12-27] MEDS: Levothyroxine 75 MCG Tablet 225 MCG PO (05:18)
[2020-12-27] MEDS: Fluticasone 0.05% 1 SPRAY NASAL.SRY NASAL ×2 (05:18→16:44)
[2020-12-27] MEDS: Enoxaparin 40 MG/0.4 ML Syringe SC (05:19)
[2020-12-27] MEDS: Multivitamins,Therapeutic Tablet 1 TABLET PO (08:51)
[2020-12-27] MEDS: LORazepam 1 MG Tablet PO ×2 (08:54→20:43)
[2020-12-27] MEDS: oxyCODONE 5 MG Tablet PO (10:53)
[2020-12-27 15:54] VITALS: BP 105/69; PULSE 72; RESP 16; TEMP 36.6; O2SAT 95
[2020-12-27 20:47] VITALS: PULSE 63; RESP 18; O2SAT 94
[2020-12-28 04:00] VITALS: BP 100/57; PULSE 67; RESP 16; TEMP 35.8; O2SAT 98
[2020-12-28] MEDS: Citalopram 40 MG TABLET PO (06:07)
[2020-12-28] MEDS: Fluticasone 0.05% 1 SPRAY NASAL.SRY NASAL ×2 (06:07→17:21)
[2020-12-28] MEDS: Enoxaparin 40 MG/0.4 ML Syringe SC (06:08)
[2020-12-28] MEDS: Levothyroxine 75 MCG Tablet 225 MCG PO (06:08)
[2020-12-28] MEDS: Pantoprazole Sodium 20 MG Tablet PO (06:08)
[2020-12-28] MEDS: oxyCODONE 5 MG Tablet PO ×3 (06:14→17:24)
--- NOTE | 2020-12-28 09:58 | NURSING ---
PT RESTING IN BED WITH EYE CLOSED, WILL ADMIN MULTIVITAMIN WHEN PT AWAKE. ONLY 0800 MED DUE
[2020-12-28] MEDS: Multivitamins,Therapeutic Tablet 1 TABLET PO (10:59)
--- NOTE | 2020-12-28 11:13 | NURSING ---
pt c/o neck, back, shoulder pain. offered kpad, pt accepted. kpad placed in pt bed to warm up. pt on phone with another facility discussing his personal life and medical/health history. Dany wraps applied to BLEs as ordered. pt sitting on edge of bed, call light in reach.
--- NOTE | 2020-12-28 11:20 | CASEMGMT ---
Social Work Followed up with [facility] - they are able to accept. Received call from [facility] and TCU stay does not qualify for Care Assurance. Will follow up with pt. Jill Krishna, FOREST PATHOLOGY TEACHER VULCANIZING MACHINE OPERATOR
[2020-12-28 15:23] VITALS: BP 128/76; PULSE 84; RESP 18; TEMP 36.3; O2SAT 95
[2020-12-28] MEDS: LORazepam 1 MG Tablet PO (15:36)
[2020-12-29 05:59] VITALS: BP 110/55; PULSE 67; RESP 16; TEMP 36.5; O2SAT 95
[2020-12-29] MEDS: Levothyroxine 75 MCG Tablet 225 MCG PO (06:01)
[2020-12-29] MEDS: Citalopram 40 MG TABLET PO (06:01)
[2020-12-29] MEDS: Pantoprazole Sodium 20 MG Tablet PO (06:01)
[2020-12-29] MEDS: Enoxaparin 40 MG/0.4 ML Syringe SC (06:02)
[2020-12-29] MEDS: Fluticasone 0.05% 1 SPRAY NASAL.SRY NASAL ×2 (06:02→17:24)
[2020-12-29] MEDS: Multivitamins,Therapeutic Tablet 1 TABLET PO (08:59)
[2020-12-29] MEDS: LORazepam 1 MG Tablet PO ×2 (08:59→19:42)
[2020-12-29 09:18] VITALS: PULSE 66; RESP 18; O2SAT 91
[2020-12-29] MEDS: oxyCODONE 5 MG Tablet PO ×2 (10:14→17:27)
--- NOTE | 2020-12-29 11:40 | CASEMGMT ---
Addendum entered by Jill Krishna 12/29/20 11:53: Spoke with Randall, admissions, at [facility]. He was unaware this was a SNF and pt is cut from Medicare services. Explained brief pt hx of services and insurance coverage. Randall agreed to review information and admit under Medicaid with LOC. Information faxed. Original Note: Social Work IDT met and discussed DC date for pt 01/01. Met with patient and explained pt has reached goals for therapy and issued LCD 12/31. Explained appeal rights. Inquired about DC plan. Pt states he feels appealing would not be beneficial at this time but also feels returning home is not what he needs either. Pt requested referral to [facility] as he agreed to pay Medicaid patient liability. Referral made. Will continue to follow. WENCESLAO JosephW
[2020-12-29 13:44] VITALS: BP 104/69; PULSE 72; RESP 18; TEMP 36.6; O2SAT 96
[2020-12-29 19:47] VITALS: BP 121/64; PULSE 67; O2SAT 97
[2020-12-30 06:01] VITALS: BP 102/59; PULSE 68; RESP 18; TEMP 36.5; O2SAT 95
[2020-12-30] MEDS: Pantoprazole Sodium 20 MG Tablet PO (06:02)
[2020-12-30] MEDS: Enoxaparin 40 MG/0.4 ML Syringe SC (06:02)
[2020-12-30] MEDS: Fluticasone 0.05% 1 SPRAY NASAL.SRY NASAL ×2 (06:02→16:20)
[2020-12-30] MEDS: Levothyroxine 75 MCG Tablet 225 MCG PO (06:02)
[2020-12-30] MEDS: Citalopram 40 MG TABLET PO (06:03)
[2020-12-30] MEDS: Multivitamins,Therapeutic Tablet 1 TABLET PO (08:01)
[2020-12-30] MEDS: LORazepam 1 MG Tablet PO (08:25)
[2020-12-30 13:22] VITALS: BP 114/72; PULSE 75; RESP 18; TEMP 36.7; O2SAT 94
--- NOTE | 2020-12-30 13:48 | CASEMGMT ---
Addendum entered by Desirae Diggs 12/30/20 16:22: Social Work: SW spoke w/Randall at [facility](not [facility] as stated below), gave him the information requested. There were also questions around pt having a private room or semiprivate room, it is this SW's understanding pt wanted a private room. Randall states he would be in a semiprivate at [facility] since he will be there under Medicaid and not Medicare, initially pt had told Randall he would be coming under Medicare. Under Medicaid however, pt would be in a shared room. Also, it is this SW's understanding that pt will have a patient liability no matter where he goes. SW clarified this with Randall, and he confirmed pt would have a patient liability. Randall at this point is unsure if [facility] is really the best place for pt and is no longer sure if they would accept him. Randall states that he thinks the facility is too far away from where pt lives and would be isolating. To have a private room, pt would need to pay an extra $102 per day. SW reviewed all of this w/pt. Pt states understanding, he thought he would be in the [facility]' TCU, not in the [facility] part. SW explained it is this SW's understanding he has met all therapy goals, and that [facility] would not be able to take him under Medicare, so he would not be in their TCU, but there under Medicaid in a shared room. We then revisited [facility] and [facility]. SW called Leni, [facility] has no beds, [facility] may have a private room for pt. Leni is to let SW know, however pt will have a liability and will need to pay it when he arrives to [facility]. After several conversations w/pt, Leni at [facility], and Randall at [facility], pt has decided that if he cannot get a private room at [facility] he will go home. Pt understands now he will have a patient liability wherever he goes and states will pay it. However, he does not want to go to [facility] if they cannot provide a private room. SW will follow up w/pt again once SW hears from [facility] about a private room. DEYA Salmon Original Note: Social Work Randall from [facility] called with questions in regard to pt. SW reviewed chart, called Randall back, message left to call SW so SW can answer the questions. Randall inquiring why pt wants to go to [facility] as it's far from home(pt chose this facility himself, and it has private rooms), pt taking CBD oil(it is not on pt's MAR here), and referral to Behavioral Health(pt spoke to Behavioral Health but declined further assessment with Behavioral Health due to the time commitment for the program, and pt was given information on other local resources). Once Randall calls back SW will let him know this information. DEYA Salmon
[2020-12-30] MEDS: oxyCODONE 5 MG Tablet PO (16:22)
--- NOTE | 2020-12-30 19:05 | PN.TCU_ITS ---
Subjective Subjective Resident seen for regulatory visit. He has no new complaints. He is trying to figure out where to go on discharge. He would like to go to extended care facility, but requests a private room. If private room not available, he would like to discharge home. Objective Data Objective Data Vital Signs: Vital Signs Temp Pulse Resp BP Pulse Ox 98.0 F 75 18 114/72 94 12/30/20 13:22 12/30/20 13:22 12/30/20 13:22 12/30/20 13:22 12/30/20 13:22 Oxygen Flow Rate (L/min) 4 Oxygen Delivery Method Room Air Weight: 108.579 kg Body Mass Index (BMI) 40.9 Intake & Output: Intake and Output for Last 24 Hours 12/28/20 12/29/20 12/30/20 23:59 23:59 23:59 Intake Total 480 / 480 720 / 720 720 / 720 Balance 480 / 480 720 / 720 720 / 720 Lab / Micro Data Result Diagrams: 12/26/20 08:16 12/26/20 08:16 Physical Exam Const alert and oriented x3 General Appearance: cooperative HEENT normocephalic Eyes PERRL and EOMs intact bilaterally Neck supple, no JVD and no carotid bruits Resp normal respiratory effort, normal air movement and clear to auscultation bilaterally Cardio regular rate and regular rhythm GI normal to inspection, nondistended, normoactive bowel sounds, non-tender and non-distended Extremity normal capillary refill General Extremity: Negative for edema Skin no rashes or lesions noted General Skin Exam: no breakdown Psych affect normal Appearance: appropriate Assessment & Plan Assessment/Plan (1) Objective tinnitus of both ears: PLAN: 55 year old male with below past medical history hospitalized for alcohol detoxification, complicated by depression, anxiety, admitted to TCU with debility, here for rehabilitation, strengthening, prior to discharge home alone. * Debility - PT/OT. * Pain - Tylenol 1000MG Q6H PRN pain (1-3), Tramadol 100MG Q6H PRN pain (4-5), Oxycodone 5MG Q4H PRN pain (6-10). * Bowel - Miralax 17GM daily PRN, Senna/colace 1 tablet BID PRN, * Adult immunization - Administer Prevnar 13, Pneumovax 23, Fluzone, COVID19 vaccine as appropriate. * DVT prophylaxis - Lovenox 40MG SC daily. * Shortness of breath - Albuterol 1-2 puff Q4H PRN. * Muscle spasm - Baclofen 10MG TID PRN. * Indigestion - Calcium carbonate 500MG Q6H PRN. * Depression - Citalopram 40MG daily, stable chronic usp use, GDR not recommended. * Allergic Rhinitis - Flonase 1 spray nasal BID. * Anxiety - Ativan 1MG Q4H PRN, Hydroxyzine 50MG Q4H PRN. * Hypothyroidism - Levothyroxine 225MCG daily. * Nutrition - MVI daily. * GERD - Pantoprazole 20MG daily. * Dry Eye - Artificial Tears 1GTT Q1H PRN. Capacity Capacity Assessment Tool Can the patient make a choice & communicate that choice?: Yes Can the patient understand benefits, risks and alternatives?: Yes Can the patient make a logical, rational choice?: Yes Is the choice the patient makes consistent w/ their values?: Yes Is there an impending, emergent risk to the patient?: No Does the patient have an Advance Directive?: No Is there a Surrogate Available?: Yes i.e. HCPOA: No i.e. close relative (spouse, child, parent, sibling)?: Yes
--- NOTE | 2020-12-30 23:10 | NURSING ---
Pt c/o sore under lt armpit, assessed, appears to be a pimple, pushed on it, pimple popped moderate amount of yellow discharge returned with pressure, 2x2 gauze and bandaid applied. Pt tolerated well, was appreciation for me taking care of it.
[2020-12-31 06:13] VITALS: BP 112/71; PULSE 69; RESP 16; TEMP 36.6; O2SAT 96
[2020-12-31] MEDS: Levothyroxine 75 MCG Tablet 225 MCG PO (06:14)
[2020-12-31] MEDS: Citalopram 40 MG TABLET PO (06:14)
[2020-12-31] MEDS: Enoxaparin 40 MG/0.4 ML Syringe SC (06:14)
[2020-12-31] MEDS: Pantoprazole Sodium 20 MG Tablet PO (06:14)
[2020-12-31] MEDS: Multivitamins,Therapeutic Tablet 1 TABLET PO (09:25)
[2020-12-31] MEDS: LORazepam 1 MG Tablet PO ×2 (09:29→14:12)
--- NOTE | 2020-12-31 12:49 | CASEMGMT ---
Social Work Spoke with Leni at [facility] whom has spoken to pt and his mother several times today. [facility] can accept pt as mother has agreed to pay patient liability because pt expressed not feeling safe to return home alone. [facility] can offer a private room. Spoke with pt and he confirmed above information. Pt stated he could get his dtr to transport and if not, pt would notify nursing/SW to get transportation scheduled. [facility] has all proper paperwork for discharge. Plan: DC 01/01 to [facility] nonskilled [facility] [employer]
[2020-12-31 13:30] VITALS: BP 134/75; PULSE 75; RESP 16; TEMP 36.1; O2SAT 98
[2021-01-01] MEDS: Pantoprazole Sodium 20 MG Tablet PO (06:08)
[2021-01-01] MEDS: Enoxaparin 40 MG/0.4 ML Syringe SC (06:08)
[2021-01-01] MEDS: Levothyroxine 75 MCG Tablet 225 MCG PO (06:08)
[2021-01-01] MEDS: Citalopram 40 MG TABLET PO (06:08)
[2021-01-01] MEDS: Fluticasone 0.05% 1 SPRAY NASAL.SRY NASAL (06:08)
[2021-01-01 07:07] VITALS: BP 124/67; PULSE 67; RESP 14; TEMP 36.6
[2021-01-01] MEDS: LORazepam 1 MG Tablet PO ×2 (09:34→16:12)
[2021-01-01] MEDS: Multivitamins,Therapeutic Tablet 1 TABLET PO (09:34)
[2021-01-01] MEDS: oxyCODONE 5 MG Tablet PO (12:13)
[2021-01-01 13:42] VITALS: BP 138/78; PULSE 65; RESP 16; TEMP 36.3; O2SAT 96
--- NOTE | 2021-01-01 16:29 | NURSING ---
daughter here to take pt to [facility]
--- NOTE | 2021-01-01 16:34 | NURSING ---
report called to [facility]
== END 2021-01-01 16:42 | disposition intermediate care facility (04) | DRG 881 ==
PROVIDERS: Admitting Provider Family Medicine Geriatric Medicine; PCP Family Medicine; Visit Provider Family Medicine Geriatric Medicine
DX: F32.9 Major depressive disorder, single episode, unspecified (principal); F10.20 Alcohol dependence, uncomplicated; K21.9 Gastro-esophageal reflux disease without esophagitis; F41.9 Anxiety disorder, unspecified; E03.9 Hypothyroidism, unspecified; F17.200 Nicotine dependence, unspecified, uncomplicated; G47.33 Obstructive sleep apnea (adult) (pediatric); Z79.899 Other long term (current) drug therapy; Z79.51 Long term (current) use of inhaled steroids; G47.30 Sleep apnea, unspecified; H93.13 Tinnitus, bilateral
CPT/HCPCS: 36415; 80048; 82962; 84403; 85025; 87635; 94762; 97110; 97116; 97162; 97164; 97165; 97530; 97535; 97802; U0002

== ENCOUNTER 2022-02-27 12:26 | Emergency (ER) | payer MEDICARE, MEDICAID, SELFPAY ==
[2022-02-27 12:26] VITALS: BP 148/81; PULSE 82; RESP 18; TEMP 37.1; O2SAT 98; BMI 35.7
--- NOTE | 2022-02-27 12:58 | EDS_ITS ---
HPI History of Present Illness Chief Complaint: Anxiety Narrative Narrative: Patient presents with anxiety. He has been anxious with decreased sleep over the past 3 days. He has no suicidal ideation, he asked me if it is possible that he is withdrawing from alcohol. However he tells me he drinks the same amount of beer about 6-7 beers a day as normally has in the past and he has not stopped his intake of alcohol or decreased at all. He has no chest pain no shortness of breath he has no fevers or chills. I asked him specifically if he wants detox, at this time he is refusing detox. PFS PFS Medical History Alcohol abuse Chronic pain CPAP (continuous positive airway pressure) dependence History of trigger finger Sleep apnea Smoker Home Medications calcium carbonate 200 mg calcium (500 mg) chewable tablet 500 mg PO Q6H PRN PRN Indigestion 11/01/18 [Rx Last Taken Unknown] omeprazole 20 mg capsule,delayed release 20 mg PO DAILY GERD 02/05/19 [History Last Taken Unknown] albuterol sulfate 90 mcg/actuation aerosol inhaler 1 - 2 puff inhalation Q4H PRN PRN Wheezing ##1 02/04/20 [Rx Last Taken Unknown] baclofen 10 mg tablet 10 mg PO TID PRN PRN Muscle Spasm 11/22/20 [History Last Taken Unknown] fluticasone propionate 50 mcg/actuation nasal spray,suspension 1 spray NASAL BID Allergies 12/04/20 [History Last Taken Unknown] hydroxyzine pamoate 25 mg capsule 50 mg PO Q4H PRN PRN mild anxiety #1 cap 12/04/20 [Rx Last Taken Unknown] multivitamin 1 tab PO DAILY supplement 12/04/20 [History Last Taken Unknown] acetaminophen 500 mg tablet 1,000 mg PO Q6H PRN PRN Pain Score 1-5 #0 tabs 12/23/20 [Rx Last Taken Unknown] citalopram 40 mg tablet 40 mg PO DAILY #0 tabs 12/23/20 [Rx Last Taken Unknown] levothyroxine 75 mcg tablet 225 mcg PO DAILY@0600 #0 tabs 12/23/20 [Rx Last Taken Unknown] lorazepam 1 mg tablet 1 mg PO Q4H PRN PRN Anxiety 7 days #42 tabs 12/23/20 [Rx Last Taken Unknown] peg [id number] 1 %-0.2 %-0.2 % eye drops (Artificial Tears ([id number])) 1 drp EACH EYE Q1H PRN DRY EYES #0 mL 12/23/20 [Rx Last Taken Unknown] Allergy/AdvReac Type Severity Reaction Status Date / Time No Known Allergies Allergy Verified 02/27/22 12:29 Family History Other Diabetes Surgical History H/O hand surgery History of tonsillectomy Social History household members: other details: Roommate who does not help him cook or clean. Smoking Status: Current every day smoker tobacco type: cigarettes alcohol intake: current alcohol intake frequency: 3 or more drinks per day Alcohol type: hard liquor ROS ROS ED ROS Narrative Past medical history: Reviewed Medications: Reviewed Social history: Alcohol use and abuse Review of systems: All systems negative except as indicated General: No fever Eyes: No visual changes ENT: No upper airway congestion, normal voice Neck: No neck pain Cardiovascular: No chest pain Respiratory: No shortness of breath or cough Gastrointestinal: No abdominal pain, nausea vomiting or diarrhea Genitourinary: No dysuria Musculoskeletal: Denies myalgias no difficulty with ambulation Skin: No rash Neurological: No memory loss, confusion or any focal weakness Psych: Anxiety as in HPI. No suicidal ideations. Hematologic: No easy bleeding or easy bruising EXAM Physical Exam Narrative Exam Narrative: Physical exam General: Well nourished, Well developed, No Acute Distress Head: Normocephalic, Atraumatic Eyes: Conjunctiva not pale ENT: Moist mucous membranes, I do smell some fermentation on his breath Neck: Supple, Nontender, No lymphadenopathy Cardiovascular: Regular rate, Regular rhythm Respiratory: No distress, CTA bilaterally Abdomen: Soft, Nontender, Nondistended Back: Nontender, Normal Inspection. Negative for: CVA tenderness Extremities: Nontender, No edema Skin: Normal color, No rash Neurological: Alert, Normal Strength, Normal Sensation Psychological: Somewhat anxious, he is lucid coherent he does not appear intoxicated, he is clear and concise. He is denying suicidal or homicidal ideations Const Vital Signs: 02/27/22 12:26 Temperature 98.7 F Temperature Source Temporal Pulse Rate 82 Respiratory Rate 18 Blood Pressure 148/81 H Blood Pressure Mean 103 Pulse Ox 98 Oxygen Delivery Method Room Air [facility] Treatment and Re-Evaluation Narrative: Patient was given IM Ativan his symptoms are now significantly improved I went back to talk to him I offered him detox 1 more time and he again is refusing he tells me he is to go take care of his cat he says he may be back if he changes his mind I encouraged him to come back. If any changes his daughter will bring him right back. Discharge Plan Triage Chief Complaint: Anxiety ED Provider: Hardik Posadas Dx/Rx/DC Orders Clinical Impression: Anxiety, Alcohol abuse Instructions: Addiction: Getting Help, ED Anxiety Reaction Prescriptions: No Action calcium carbonate 500 MG tablet 500 mg PO Q6H PRN PRN (Reason: Indigestion) 0RF omeprazole 20 MG capsule 20 mg PO DAILY albuterol sulfate 1 INHALER inhaler 1 - 2 puff inhalation Q4H PRN PRN (Reason: Wheezing) Qty: 1 0RF baclofen 10 mg tablet 10 mg PO TID PRN PRN (Reason: Muscle Spasm) hydroxyzine pamoate 25 mg Capsule 50 mg PO Q4H PRN PRN (Reason: mild anxiety) Qty: 1 0RF multivitamin Tablet 1 tab PO DAILY fluticasone propionate 50 mcg/actuation spray,suspension 1 spray NASAL BID acetaminophen 500 mg Tablet 1,000 mg PO Q6H PRN PRN (Reason: Pain Score 1-5) Qty: 0 0RF levothyroxine 75 mcg Tablet 225 mcg PO DAILY@0600 Qty: 0 0RF citalopram 40 mg Tablet 40 mg PO DAILY Qty: 0 0RF lorazepam 1 mg Tablet 1 mg PO Q4H PRN PRN (Reason: Anxiety) 7 Days Qty: 42 0RF Artificial Tears([id number]) 1-0.2-0.2 % Drops 1 drp EACH EYE Q1H PRN (Reason: DRY EYES) Qty: 0 0RF Primary Care Provider: Sai Cobian Referrals: Sai Cobian MD [Primary Care Provider] - 3-5 Days
[2022-02-27] MEDS: LORazepam 2 MG/ML Syringe 1 MG IM (13:10)
== END 2022-02-27 14:22 | disposition home or self-care (01) ==
PROVIDERS: Emergency Provider Emergency Medicine; PCP Family Medicine; Visit Provider Emergency Medicine
DX: F41.9 Anxiety disorder, unspecified (principal); F10.10 Alcohol abuse, uncomplicated; G47.30 Sleep apnea, unspecified; Z99.89 Dependence on other enabling machines and devices

== ENCOUNTER 2022-02-27 15:23 | Inpatient (IN) | payer MEDICARE, MEDICAID, SELFPAY ==
[2022-02-27 15:23] VITALS: BP 133/87; PULSE 65; RESP 16; TEMP 35.9; O2SAT 96; BMI 35.7
--- NOTE | 2022-02-27 15:45 | EX.ED.SAOD ---
HPI History of Present Illness Chief Complaint: Substance Abuse Narrative Narrative: 56-year-old male presenting for alcohol detox. He states he is detoxed here before. He states he has been drinking for about 10 years. After his previous detox he states he did end up drinking again. He states that he can drink anywhere from 2 beers to 10 beers a day. He states that he does not usually drink to get drunk. He did buy a couple bottles of spice from last week and thinks he overdid it and now is concerned that he may withdrawal if he stops drinking. His last drink today was at 9 AM. He states he had 3 shots. He denies drug use. He states he did take 1 mg of Ativan which is prescribed to him before coming in he feels okay right now. He is a little bit on edge he states. Patient does not have any history of withdrawal seizure. PFSH PFSH Medical History Alcohol abuse Chronic pain CPAP (continuous positive airway pressure) dependence History of trigger finger Sleep apnea Smoker Home Medications omeprazole 20 mg capsule,delayed release 20 mg PO DAILY GERD 02/05/19 [History Last Taken Unknown] multivitamin 1 tab PO DAILY supplement 12/04/20 [History Last Taken Unknown] acetaminophen 500 mg tablet 1,000 mg PO Q6H PRN PRN Pain Score 1-5 #0 tabs 12/23/20 [Rx Last Taken Unknown] citalopram 40 mg tablet 40 mg PO DAILY #0 tabs 12/23/20 [Rx Last Taken Unknown] levothyroxine 75 mcg tablet 225 mcg PO DAILY@0600 #0 tabs 12/23/20 [Rx Last Taken Unknown] cholecalciferol (vitamin D3) 125 mcg (5,000 unit) tablet (Vitamin D3) mcg PO QWEEK 02/27/22 [History Last Taken Unknown] lorazepam 1 mg tablet 1 mg PO Q8H PRN PRN Anxiety 02/27/22 [History Last Taken Unknown] vitamin B complex 1 tab PO DAILY 02/27/22 [History Last Taken Unknown] Allergy/AdvReac Type Severity Reaction Status Date / Time No Known Allergies Allergy Verified 02/27/22 15:23 Family History Other Diabetes Surgical History H/O hand surgery History of tonsillectomy Social History household members: other details: Roommate who does not help him cook or clean. Smoking Status: Current every day smoker tobacco type: cigarettes alcohol intake: current alcohol intake frequency: 3 or more drinks per day Alcohol type: hard liquor ROS ROS ED Constitutional Constitutional ED: Denies chills or fever(s) Eyes Eyes: Denies change in vision or diplopia ENT ENT ED: Denies rhinorrhea or sore throat Cardiovascular Cardiovascular: Denies chest pain or palpitations Respiratory/Chest Respiratory/Chest: Denies cough or dyspnea Gastrointestinal Gastrointestinal: Denies abdominal pain or constipation Genitourinary Genitourinary ED: Denies dysuria Musculoskeletal Musculoskeletal: Denies arthralgias or back pain Integumentary Denies abscess Neurologic Neurologic: Denies headache(s) Psychiatric Psychiatric: Reports anxiety; Denies depression, suicidal ideation or suicidal thoughts EXAM Physical Exam Const Vital Signs: 02/27/22 15:23 Temperature 96.7 F L Temperature Source Temporal Pulse Rate 65 Respiratory Rate 16 Blood Pressure 133/87 H Blood Pressure Mean 102 Pulse Ox 96 Oxygen Delivery Method Room Air Positive well nourished General Appearance ED: NAD; Negative for pallor HEENT Reports moist mucous membranes atraumatic Eyes PERRL and EOMs intact bilaterally Resp normal respiratory effort and clear to auscultation bilaterally Cardio regular rate and regular rhythm GI soft to palpation Neuro oriented x3, CN's II-XII intact bilaterally and no sensory deficits noted Sensorium / Orientation: alert Speech: speech normal Motor Exam: strength 5/5 throughout Psych mental status grossly normal Skin General Skin Exam: Negative for jaundice or pallor MDM MDM MDM Narrative Medical decision making narrative: After seeing and evaluating the patient it was brought to my attention that the patient was here earlier for evaluation. He did not want to stay for detox. He presents again because he does not want detox. I did him blood work and his CBC is unremarkable. CMP unremarkable with exception of AST of 42 and ALT of 109. Lipase is normal. EtOH negative at 3.0. Patient states that he was feeling a little bit anxious so he is given 0.5 mg of Ativan IV. Patient's vital signs are stable he is afebrile. Patient was discussed with hospitalist for admission. Impression: 1. History of EtOH abuse 2. Anxiety 3. Presentation for EtOH detox Lab Data Attestation: I reviewed the patient's lab results. Labs: Laboratory Results - last 24 hr 02/27/22 02/27/22 02/27/22 15:49 15:49 15:49 WBC 11.8 H RBC 5.12 Hgb 16.2 Hct 47.3 MCV 92.4 MCH 31.6 MCHC 34.2 RDW Std Deviation 45.3 H RDW Coeff of Ras 13.3 Plt Count 223 MPV 10.8 Immature Gran % (Auto) 0.500 Neut % (Auto) 78.2 H Lymph % (Auto) 13.9 L [place] % (Auto) 6.5 Eos % (Auto) 0.6 Baso % (Auto) 0.3 Absolute Neuts (auto) 9.2 H Absolute Lymphs (auto) 1.64 Nucleated RBC % 0 Sodium 136 Potassium 3.9 Chloride 103 Carbon Dioxide 26.0 Anion Gap 7 BUN 9 Creatinine 1.04 Estim Creat Clear Calc 70.63 Est GFR (MDRD) Af Amer 96 Est GFR (MDRD) Non-Af 79 BUN/Creatinine Ratio 8.7 L Glucose 133 H Calcium 9.2 Total Bilirubin 0.60 AST 42 H ALT 69 H Alkaline Phosphatase 108 Total Protein 7.5 Albumin 3.5 Globulin 4.0 Albumin/Globulin Ratio 0.9 Lipase 128 Ethyl Alcohol < 3.0 Discharge Plan Triage Chief Complaint: Substance Abuse ED Provider: Obed Lam Dx/Rx/DC Orders Prescriptions: No Action omeprazole 20 MG capsule 20 mg PO DAILY multivitamin Tablet 1 tab PO DAILY acetaminophen 500 mg Tablet 1,000 mg PO Q6H PRN PRN (Reason: Pain Score 1-5) Qty: 0 0RF levothyroxine 75 mcg Tablet 225 mcg PO DAILY@0600 Qty: 0 0RF citalopram 40 mg Tablet 40 mg PO DAILY Qty: 0 0RF vitamin B complex Tablet 1 tab PO DAILY cholecalciferol (vitamin D3) [Vitamin D3] 125 mcg (5,000 unit) Tablet PO QWEEK lorazepam 1 mg tablet 1 mg PO Q8H PRN PRN (Reason: Anxiety) Primary Care Provider: Sai Cobian Referrals: Sai Cobian MD [Primary Care Provider] -
[2022-02-27 15:54] LABS: Absolute Lymphocyte Count 1.64 X10^3/uL (0.83-4.51); Absolute Neutrophil Count 9.2 X10^3/uL (2.0-7.7); Basophil# 0.04 X10^3/uL; Basophil% 0.3 % (0-1); Eosinophil# 0.07 X10^3/uL; Eosinophils% 0.6 % (0-5); Hematocrit 47.3 % (40-54); Hemoglobin 16.2 g/dL (13.0-16.5); Lymphocyte # 1.64 X10^3/ul (0.83-4.51); Lymphocyte % 13.9 % (19-41); Mean Corp Hgb Conc 34.2 g/dL (32-36); Mean Corpuscular Hgb 31.6 pg (27.0-32.0); Mean Corpuscular Volume 92.4 fL (80-94); Mean Platelet Vol. 10.8 fl (6.2-12.0); Monocyte# 0.77 X10^3/uL; Monocyte% 6.5 % (0-10); NRBC Flagged by Analyzer 0 % (0-5); Neutrophil % 78.2 % (47-70); Platelet Count 223 K/mm3 (150-450); RBC Distribution Width CV 13.3 % (11.6-14.6); RBC Distribution Width SD 45.3 fl (35.1-43.9); Red Blood Count 5.12 M/mm3 (4.6-6.2); White Blood Count 11.8 K/mm3 (4.4-11.0)
[2022-02-27 16:10] LABS: ALB/GLOB Ratio 0.9 RATIO (0.9-2.4); AST(SGOT) 42 U/L (15-37); Alanine Aminotransfer ALT/SGPT 69 U/L (16-61); Albumin, Serum 3.5 g/dL (3.2-5.0); Alkaline Phosphatase 108 U/L (45-117); Anion Gap 7 (5-15); BUN 9 mg/dL (7-18); BUN/Creat Ratio 8.7 RATIO (10-20); Calcium,Total 9.2 mg/dL (8.5-10.1); Chloride 103 mmol/L (98-107); Creatinine, Serum 1.04 mg/dL (0.70-1.30); EST Glomerular Filtration Rate 79 mL/min (>60); Est Glom Filt Rate - Afr Amer 96 mL/min (>60); Estimated Creatinine Clearance 70.63 ml/min; Glucose 133 mg/dL (74-106); Lipase 128 U/L (73-393); Potassium 3.9 mmol/L (3.5-5.1); Protein, Total 7.5 g/dL (6.4-8.2); Sodium Level 136 mmol/L (136-145)
--- NOTE | 2022-02-27 16:12 | NURSING ---
consent for detox went over and signed per pt with no questions. hx past program and familiar with policies. pt to gown and cpap in room and went thru per ed staff. belongings packed and in room
[2022-02-27 16:27] LABS: Alcohol, Blood (Medical)-Serum < 3.0 mg/dL
--- NOTE | 2022-02-27 17:02 | NURSING ---
daughter hugo called per pt request and aware of admission. no iv ativan on unit. pharm to refill. pt cooperative at this time. attempted to give ua but unable. water given
--- NOTE | 2022-02-27 17:24 | HP.PCM.HOS_ITS ---
[facility] - General General Date of Admission: 02/27/22 Date of Service: 02/27/22 Chief Complaint: Anxiety and tremulousness. HPI Narrative GOOD RUBIO, is a 56 M who presents seeking treatment for alcohol withdrawal. Patient is feeling more anxious and eyes stopped drinking today and denies having tremulousness. Patient drinks anywhere from 5-8 beers per day. Was seen earlier in the emergency room and was offered treatment for his alcohol withdrawal but he stated that he had to go back and take care of his cat. Subsequently came back and is now on board with getting treatment. Patient was here in November 2020 for alcohol withdrawal. His course was complicated by hallucinations thinking the [address] character, Yasmany, was in his room where he was tubing for his CPAP. Patient states that he went to [facility] rehab back in June and did not go through any alcohol withdrawal at that time. Patient does state that he has been anxious but there is been no acute issues. Patient's grandson has recent been diagnosed with lymphoma but is currently stable at home. [facility] Medical History Alcohol abuse Anxiety Cerebral palsy Chronic pain CPAP (continuous positive airway pressure) dependence History of trigger finger Sleep apnea Smoker Home Medications omeprazole 20 mg capsule,delayed release 20 mg PO DAILY GERD 02/05/19 [History Last Taken Unknown] multivitamin 1 tab PO DAILY supplement 12/04/20 [History Last Taken Unknown] acetaminophen 500 mg tablet 1,000 mg PO Q6H PRN PRN Pain Score 1-5 #0 tabs 12/23/20 [Rx Last Taken Unknown] citalopram 40 mg tablet 40 mg PO DAILY #0 tabs 12/23/20 [Rx Last Taken Unknown] levothyroxine 75 mcg tablet 225 mcg PO DAILY@0600 #0 tabs 12/23/20 [Rx Last Taken Unknown] cholecalciferol (vitamin D3) 125 mcg (5,000 unit) tablet (Vitamin D3) mcg PO QWEEK 02/27/22 [History Last Taken Unknown] lorazepam 1 mg tablet 1 mg PO Q8H PRN PRN Anxiety 02/27/22 [History Last Taken Unknown] vitamin B complex 1 tab PO DAILY 02/27/22 [History Last Taken Unknown] Allergy/AdvReac Type Severity Reaction Status Date / Time No Known Allergies Allergy Verified 02/27/22 15:23 Family History (Updated 02/27/22 @ 17:[address] Davy Choudhury DO) Other Cancer Diabetes Surgical History H/O hand surgery History of tonsillectomy Social History household members: other details: Roommate who does not help him cook or clean. Smoking Status: Current every day smoker tobacco type: cigarettes alcohol intake: current alcohol intake frequency: 3 or more drinks per day Alcohol type: hard liquor ROS ROS Narrative Headache. Tremors. Anxiety. Debility due to his cerebral palsy. Patient walks with a walker at baseline. All review of systems were negative except as mentioned above in the history of present illness and the other review of systems. Vital Signs Vital Signs Vital Signs: 02/27/22 15:23 Temperature 35.9 C L Temperature Source Temporal Pulse Rate 65 Respiratory Rate 16 Blood Pressure 133/87 H Blood Pressure Mean 102 Pulse Ox 96 Oxygen Delivery Method Room Air Weight Weight: 97.522 kg Body Mass Index (BMI) 35.7 Physical Exam Const alert and no apparent distress HEENT normocephalic and head/scalp atraumatic Resp normal respiratory effort, no retractions, no use of accessory muscles and clear to auscultation bilaterally Cardio regular rate, regular rhythm, S1 normal heart sound and S2 normal heart sound GI normal to inspection, nondistended, normoactive bowel sounds, soft to palpation, non-tender and non-distended Extremity normal to inspection Neuro Neuro Narrative: Slight tremulousness in upper extremities. Results Lab / Micro Data Attestation: I reviewed the patient's lab results. Result Diagrams: 02/27/22 15:49 02/27/22 15:49 Labs: Laboratory Results - last 24 hr 02/27/22 15:49: WBC 11.8 H, RBC 5.12, Hgb 16.2, Hct 47.3, MCV 92.4, MCH 31.6, MCHC 34.2, RDW Std Deviation 45.3 H, RDW Coeff of Ras 13.3, Plt Count 223, MPV 10.8, Immature Gran % (Auto) 0.500, Neut % (Auto) 78.2 H, Lymph % (Auto) 13.9 L, Marquette % (Auto) 6.5, Eos % (Auto) 0.6, Baso % (Auto) 0.3, Absolute Neuts (auto) 9.2 H, Absolute Lymphs (auto) 1.64, Nucleated RBC % 0 02/27/22 15:49: Sodium 136, Potassium 3.9, Chloride 103, Carbon Dioxide 26.0, Anion Gap 7, BUN 9, Creatinine 1.04, Estim Creat Clear Calc 70.63, Est GFR (MDRD) Af Amer 96, Est GFR (MDRD) Non-Af 79, BUN/Creatinine Ratio 8.7 L, Glucose 133 H, Calcium 9.2, Total Bilirubin 0.60, AST 42 H, ALT 69 H, Alkaline Phosphatase 108, Total Protein 7.5, Albumin 3.5, Globulin 4.0, Albumin/Globulin Ratio 0.9, Lipase 128 02/27/22 15:49: Ethyl Alcohol < 3.0 Assessment & Plan Assessment/Plan (1) Alcohol withdrawal: QUALIFIERS: Complication of substance-induced condition: uncomplicated Qualified Code(s): F10.930 - Alcohol use, unspecified with withdrawal, uncomplicated PLAN: Patient is having tremulousness. Patient has not had counseling before. I told him that the purpose of his hospitalization was get him through acute alcohol withdrawal but to help him with his long-term alcoholism, he needs to have further counseling and discussion about his use of alcohol. I do not feel the patient needs a residential program but strongly recommended that he talk with the addiction dipti julissa and set up a program upon outpatient. Plan: * Phenobarbital taper * Thiamine and folate (2) Cerebral palsy: QUALIFIERS: Cerebral palsy type: unspecified type Qualified Code(s): G80.9 - Cerebral palsy, unspecified PLAN: Patient does use a walker and has been in and out of rehab units. He is concerned about his walking and uses a walker at baseline He is requested a physical therapy evaluation. Will consult PT and OT. (3) Anxiety: PLAN: This is a chronic problem for the patient. Patient already on citalopram and will continue. Patient may be coping with his anxiety with alcohol which is primary reason why feel that he needs additional counseling upon discharge. This will complicate his long-term care and recovery for alcoholism. Patient expressed that he is concerned about his family history of malignancy. Patient is adopted but he is in contact with his biological family. Expressed it as a concern but he is known about their cancer for some time. There is been no acute changes in regards to their status. Additionally his grandson has been diagnosed with lymphoma but he is currently stable at home. PLAN: Plan VTE prophylaxis: Despite the patient being in for alcohol withdrawal, given his cerebral palsy I feel that he is at moderate risk for VTE while he is in the hospital as mobility is going to be cumbersome for him. We will initiate enoxaparin. Charges/Coding Visit Charges Inpatient E&M: 94764 Init Hosp L2
[2022-02-27 17:45] VITALS: BP 139/81; PULSE 63; RESP 18; TEMP 37; O2SAT 96
[2022-02-27 17:51] LABS: Amphetamine Urine VISTA NEGATIVE (<1000 ng/mL); Barbiturate Urine VISTA NEGATIVE (< 200 ng/mL); Benzodiazepine Urine VISTA NEGATIVE (< 200 ng/mL); Cocaine Urine VISTA NEGATIVE (< 300 ng/mL); Ecstacy Urine VISTA NEGATIVE (< 500 ng/mL); Methadone Urine VISTA NEGATIVE (< 300 ng/mL); PCP Urine VISTA NEGATIVE (< 25 ng/mL); THC Urine VISTA NEGATIVE (< 50 ng/mL); Vista UDS pH Range 8
[2022-02-27 18:01] VITALS: BMI 37.3
[2022-02-27 18:09] VITALS: BP 127/74; PULSE 55; RESP 18; TEMP 36.6; O2SAT 98
[2022-02-27] MEDS: Phenobarbital 32.4 MG Tablet 64.8 MG PO ×2 (18:31→21:56)
[2022-02-27] MEDS: Ondansetron 8 MG Tablet PO (20:15)
[2022-02-27] MEDS: Dicyclomine 10 MG Capsule 20 MG PO (20:15)
[2022-02-27] MEDS: Ibuprofen 600 MG Tablet PO (20:15)
[2022-02-27] MEDS: Gabapentin 300 MG Capsule PO (20:15)
[2022-02-27] MEDS: traZODone 100 MG Tablet PO (21:57)
[2022-02-27 22:00] VITALS: BP 122/70; PULSE 61; RESP 18; TEMP 36.8; O2SAT 95
[2022-02-28] MEDS: Phenobarbital 32.4 MG Tablet 64.8 MG PO ×5 (03:30→23:13)
[2022-02-28 04:00] VITALS: BP 113/58; PULSE 81; RESP 18; TEMP 36.5; O2SAT 96
[2022-02-28] MEDS: Levothyroxine 75 MCG Tablet 225 MCG PO (06:20)
[2022-02-28 10:46] VITALS: BP 122/76; PULSE 61; RESP 18; TEMP 36.6; O2SAT 97
[2022-02-28] MEDS: Pantoprazole Sodium 20 MG Tablet PO (10:48)
[2022-02-28] MEDS: Folic Acid 1 MG Tablet PO (10:48)
[2022-02-28] MEDS: Enoxaparin 40 MG/0.4 ML Syringe SC (10:48)
[2022-02-28] MEDS: Citalopram 40 MG TABLET PO (10:48)
[2022-02-28] MEDS: Vitamin B Comp W-C Capsule 1 CAP PO (10:48)
[2022-02-28] MEDS: Thiamine Hydrochloride 100 MG Tablet PO (10:48)
[2022-02-28] MEDS: Multivitamins,Therapeutic Tablet 1 TABLET PO (10:48)
--- NOTE | 2022-02-28 12:07 | PCM.PN.HOSP ---
Subjective Subjective Patient states he is feeling well. States he drinks 2-10 beers daily. He states he really does not drink more than 1-1-1/2 drinks per hour. Patient has had frequent admissions to the transitional care unit for debility and therapy is pending at this time. Objective Data Objective Data Vital Signs: Vital Signs Temp Pulse Resp BP Pulse Ox O2 Del Method 97.9 F 61 18 122/76 H 97 Room Air 02/28/22 10:46 02/28/22 10:46 02/28/22 10:46 02/28/22 10:46 02/28/22 10:46 02/28/22 10:46 Oxygen Delivery Method Room Air Weight: 101.7 kg Body Mass Index (BMI) 37.3 Intake & Output: Intake and Output for Last 24 Hours 02/26/22 02/27/22 02/28/22 23:59 23:59 23:59 Intake Total 360 / 360 Balance 360 / 360 Lab / Micro Data Result Diagrams: 02/27/22 15:49 02/27/22 15:49 Labs: Laboratory Results - last 24 hr 02/27/22 15:49: WBC 11.8 H, RBC 5.12, Hgb 16.2, Hct 47.3, MCV 92.4, MCH 31.6, MCHC 34.2, RDW Std Deviation 45.3 H, RDW Coeff of Ras 13.3, Plt Count 223, MPV 10.8, Immature Gran % (Auto) 0.500, Neut % (Auto) 78.2 H, Lymph % (Auto) 13.9 L, Gilliam % (Auto) 6.5, Eos % (Auto) 0.6, Baso % (Auto) 0.3, Absolute Neuts (auto) 9.2 H, Absolute Lymphs (auto) 1.64, Nucleated RBC % 0 02/27/22 15:49: Sodium 136, Potassium 3.9, Chloride 103, Carbon Dioxide 26.0, Anion Gap 7, BUN 9, Creatinine 1.04, Estim Creat Clear Calc 70.63, Est GFR (MDRD) Af Amer 96, Est GFR (MDRD) Non-Af 79, BUN/Creatinine Ratio 8.7 L, Glucose 133 H, Calcium 9.2, Total Bilirubin 0.60, AST 42 H, ALT 69 H, Alkaline Phosphatase 108, Total Protein 7.5, Albumin 3.5, Globulin 4.0, Albumin/Globulin Ratio 0.9, Lipase 128 02/27/22 15:49: Ethyl Alcohol < 3.0 02/27/22 17:27: Urine Opiates Screen NEGATIVE, Urine Methadone Screen NEGATIVE, Ur Barbiturates Screen NEGATIVE, Ur Phencyclidine Scrn NEGATIVE, Ur Amphetamines Screen NEGATIVE, MDMA (Ecstasy) Screen NEGATIVE, U Benzodiazepines Scrn NEGATIVE, Urine Cocaine Screen NEGATIVE, U Cannabinoids Screen NEGATIVE, Ur Drug Screen Comment Micro: Microbiology 02/27/22 16:34 Nasal Secretion SARS-CoV-2 Antigen (Rapid) - Final Physical Exam Const alert, oriented x3, no apparent distress and well nourished Constitutional Narrative: Obese white male lying in bed sleeping with CPAP in place, awakens easily, appears comfortable, no tremor noted HEENT head/scalp atraumatic, moist oral mucous membranes and oropharynx normal HEENT Narrative: Mallampati 3, no thrush Resp normal respiratory effort, no retractions, no use of accessory muscles and clear to auscultation bilaterally Auscultation: Negative for crackles, rales, rhonchi or wheezes Cardio regular rate, regular rhythm, S1 normal heart sound, S2 normal heart sound, no murmurs, no rub, no gallops, no clicks and no JVD GI normal to inspection, nondistended, normoactive bowel sounds, soft to palpation, non-tender and non-distended; Negative for hepatosplenomegaly Extremity normal to inspection and no clubbing, cyanosis or edema Neuro oriented x3 and moves all extremities Neuro Narrative: No tremor noted on exam Sensorium / Orientation: awake and alert Psych affect normal Psych Narrative: Very pleasant and appropriately interactive Assessment & Plan Assessment/Plan (1) Alcohol withdrawal: QUALIFIERS: Complication of substance-induced condition: uncomplicated Qualified Code(s): F10.930 - Alcohol use, unspecified with withdrawal, uncomplicated (2) Alcohol abuse: (3) Alcoholic hepatitis: PLAN: Plan Acute alcohol withdrawal -Patient drinks 2-10 beers daily--> reported 5-8 drinks daily in the emergency department -Has had hallucinations previously with detox in November 2020 -Recent detox at [facility] for rehab in June -Continue phenobarbital taper -Continue supplemental thiamine and folate -Continue supportive medications for symptom management -180 consult-Pending Alcoholic hepatitis -Mild with an ALT of 69/AST of 42 -Should improve with alcohol cessation -Recommend outpatient follow-up History cerebral palsy -Uses a walker at baseline -Patient was concerned about his ambulation upon admission and requested physical and Occupational Therapy consultation -Therapy consults are pending -Patient has had recurrent transitional care admissions previously Anxiety/depression -Continue home citalopram -Restart home lorazepam on discharge Hypothyroidism -Continue home levothyroxine GERD -Continue omeprazole Vitamin D deficiency -Restart cholecalciferol upon discharge JODEE -Continue CPAP with naps and at at bedtime DVT prophylaxis -Continue Lovenox Charges/Coding Visit Charges Inpatient E&M: 75765 Subs Hosp L2
[2022-02-28] MEDS: Acetaminophen 500 MG Tablet 1000 MG PO ×2 (12:12→21:03)
[2022-02-28] MEDS: Ibuprofen 600 MG Tablet PO ×2 (12:12→21:03)
--- NOTE | 2022-02-28 13:55 | ADDICTION ---
This content writer met with PT to conduct ASAM, MSE, AUDIT assessments and to plan for d/c. PT A+Ox4 and participated actively. All assessments completed and placed in PT's chart. PT plans to f/u with [facility] for [facility] services. PT did not indicate a need for transportation post d/c from [facility].
[2022-02-28 18:45] VITALS: BP 106/86; PULSE 59; RESP 16; TEMP 36.4; O2SAT 95
[2022-02-28 23:00] VITALS: BP 123/80; PULSE 57; RESP 16; TEMP 36.5; O2SAT 96
[2022-02-28] MEDS: traZODone 100 MG Tablet PO (23:13)
[2022-03-01 04:00] VITALS: BP 118/74; PULSE 62; RESP 18; TEMP 36.6; O2SAT 95
[2022-03-01] MEDS: Phenobarbital 32.4 MG Tablet 64.8 MG PO ×2 (04:01→06:01)
[2022-03-01] MEDS: Acetaminophen 500 MG Tablet 1000 MG PO ×2 (04:40→11:27)
[2022-03-01] MEDS: Ibuprofen 600 MG Tablet PO (06:02)
[2022-03-01] MEDS: Levothyroxine 75 MCG Tablet 225 MCG PO (06:03)
[2022-03-01 09:11] VITALS: BP 129/70; PULSE 56; RESP 17; TEMP 36.4; O2SAT 96
[2022-03-01] MEDS: Vitamin B Comp W-C Capsule 1 CAP PO (09:16)
[2022-03-01] MEDS: Folic Acid 1 MG Tablet PO (09:16)
[2022-03-01] MEDS: Pantoprazole Sodium 20 MG Tablet PO (09:16)
[2022-03-01] MEDS: Thiamine Hydrochloride 100 MG Tablet PO (09:16)
[2022-03-01] MEDS: Citalopram 40 MG TABLET PO (09:16)
[2022-03-01] MEDS: Multivitamins,Therapeutic Tablet 1 TABLET PO (09:16)
[2022-03-01] MEDS: Enoxaparin 40 MG/0.4 ML Syringe SC (09:16)
--- NOTE | 2022-03-01 11:42 | CASEMGMT ---
REBA RANGEL in to pt room discussed therapy options. Pt states he thinks he may have a standing order for therapy at [facility]. He states he does have transportation to get there and back. Provided him with a new rx for PT. He denies further needs.
--- NOTE | 2022-03-01 12:01 | PCM.DC.SUM ---
Providers Date of Admission: 02/27/22 Date of Discharge: 03/01/22 Primary Care Physician: Dr. Sai Cobian MD Reason For Visit: ALCOHOL WITHDRAWAL Diagnosis Discharge Diagnosis (1) Alcohol withdrawal: Status: Acute Code(s): F10.939 - Alcohol use, unspecified with withdrawal, unspecified Qualifiers: Complication of substance-induced condition: uncomplicated Qualified Code(s): F10.930 - Alcohol use, unspecified with withdrawal, uncomplicated (2) Alcohol abuse: Status: Acute Code(s): F10.10 - Alcohol abuse, uncomplicated (3) Alcoholic hepatitis: Status: Acute Code(s): K70.10 - Alcoholic hepatitis without ascites Plan Acute alcohol withdrawal -Patient drinks 2-10 beers daily--> reported 5-8 drinks daily in the emergency department -Has had hallucinations previously with detox in November 2020 -Recent detox at [facility] for rehab in June -Continue phenobarbital taper -Continue supplemental thiamine and folate -Continue supportive medications for symptom management -180 consult-Pending Alcoholic hepatitis -Mild with an ALT of 69/AST of 42 -Should improve with alcohol cessation -Recommend outpatient follow-up History cerebral palsy -Uses a walker at baseline -Patient was concerned about his ambulation upon admission and requested physical and Occupational Therapy consultation -Therapy consults are pending -Patient has had recurrent transitional care admissions previously Anxiety/depression -Continue home citalopram -Restart home lorazepam on discharge Hypothyroidism -Continue home levothyroxine GERD -Continue omeprazole Vitamin D deficiency -Restart cholecalciferol upon discharge JODEE -Continue CPAP with naps and at at bedtime DVT prophylaxis -Continue Lovenox Medications at Discharge Home Medications omeprazole 20 mg capsule,delayed release 20 mg PO DAILY GERD 02/05/19 multivitamin 1 tab PO DAILY supplement 12/04/20 acetaminophen 500 mg tablet 1,000 mg PO Q6H PRN PRN Pain Score 1-5 #0 tabs 12/23/20 citalopram 40 mg tablet 40 mg PO DAILY #0 tabs 12/23/20 levothyroxine 75 mcg tablet 225 mcg PO DAILY@0600 #0 tabs 12/23/20 cholecalciferol (vitamin D3) 125 mcg (5,000 unit) tablet (Vitamin D3) mcg PO QWEEK 02/27/22 lorazepam 1 mg tablet 1 mg PO Q8H PRN PRN Anxiety 02/27/22 vitamin B complex 1 tab PO DAILY 02/27/22 Hospital Course Operations None Procedures None Summary of Care Provided Minutes Spent on Discharge: 25 Hospital Course: Mr. De Luna is a 56-year-old white male who presented to the emergency department on 02/27/2022 with anxiety and tremulousness seeking alcohol detox. The patient reported on admission he was feeling more anxious and and stopped drinking on the day of admission. He denied tremulousness to the hospitalist. The patient reported that he drinks anywhere from 2-12 beers a day and indicated he can drink 1-1-1/2 an hour. He was seen in the emergency department earlier on the day of admission and was offered treatment for his alcohol withdrawal at that time but stated he had to go back and take care of his cat he subsequently came back and was now on board with getting treatment. He evidently was here in November 2020 for alcohol withdraw and his course was complicated by hallucinations at that time. The patient also reported on admission that he [facility] back in June for physical rehab and did not have any withdrawal at that time. Patient notes he has a history of anxiety at baseline. He was admitted to the medical floor and placed on a phenobarbital taper with supportive medications including thiamine and folate. His alcohol level was less than 3 on admission. The patient did extremely well and really exhibited no signs of alcohol withdrawal during his hospitalization. He was seen by 180 during his course and the plan is for him to follow-up at the counseling center as an outpatient. Upon conversation it sounds like the patient does not really think he has an overall problem and would like to be able to drink socially but not excessively. I did discuss with him that list is likely not a good idea as it could predispose him to further issues with excessive drinking and he stated he was trying to figure out where he was in this process at this time. I strongly encouraged follow-up at the counseling center as an outpatient for alcohol abuse. We also discussed outpatient physical therapy versus home health. The patient really states when he needs his daily stretching and was resistant to doing any further home health or outpatient therapy. He states if he desires to go to outpatient physical therapy he does have a standing order and can do so. He was discharged in stable condition on 03/01/2022. He was instructed to follow-up with his primary care physician in 1 week. Discharge diagnoses: Acute alcohol withdrawal Alcoholic hepatitis History of cerebral palsy Anxiety Depression Hypothyroidism GERD Vitamin D deficiency JODEE Physical Exam Const alert, oriented x3, no apparent distress and well nourished Constitutional Narrative: Obese white male sitting up in bed, appears comfortable, no tremor noted General Appearance: cooperative, comfortable, well kempt and well developed HEENT normocephalic, head/scalp atraumatic, moist oral mucous membranes and oropharynx normal Resp normal respiratory effort, no retractions, no use of accessory muscles and clear to auscultation bilaterally Auscultation: Negative for crackles, rales, rhonchi or wheezes Cardio regular rate, regular rhythm, S1 normal heart sound, S2 normal heart sound, no murmurs, no rub, no gallops, no clicks and no JVD GI normal to inspection, nondistended, normoactive bowel sounds, soft to palpation, non-tender and non-distended; Negative for hepatosplenomegaly Extremity normal to inspection and no clubbing, cyanosis or edema Neuro oriented x3 and moves all extremities Neuro Narrative: No tremor noted on exam Sensorium / Orientation: awake and alert Psych affect normal Psych Narrative: Very pleasant and appropriately interactive Weight / BMI Weight Weight: 101.7 kg Body Mass Index (BMI) 37.3 ABG / Lab / Microbiology Data Result Diagrams: 02/27/22 15:49 02/27/22 15:49 Microbiology: Microbiology 02/27/22 16:34 Nasal Secretion SARS-CoV-2 Antigen (Rapid) - Final Meaningful Use Info Meaningful Use Diagnoses (Choose all that apply): None applicable Discharge Plan Admission Admit Date/Time: 02/27/22 17:21 Primary Reason for Your Visit: EtOH detox Attending Provider: Laura Chan Primary Care Provider: Sai Cobian Consulting Providers: Davy Choudhury Discharge Orders/Prescriptions Prescriptions: Continued omeprazole 20 MG capsule 20 mg PO DAILY multivitamin Tablet 1 tab PO DAILY acetaminophen 500 mg Tablet 1,000 mg PO Q6H PRN PRN (Reason: Pain Score 1-5) Qty: 0 0RF levothyroxine 75 mcg Tablet 225 mcg PO DAILY@0600 Qty: 0 0RF citalopram 40 mg Tablet 40 mg PO DAILY Qty: 0 0RF vitamin B complex Tablet 1 tab PO DAILY cholecalciferol (vitamin D3) [Vitamin D3] 125 mcg (5,000 unit) Tablet PO QWEEK lorazepam 1 mg tablet 1 mg PO Q8H PRN PRN (Reason: Anxiety) Referrals / Follow Up: Sai Cobian MD [Primary Care Provider] - Within 2 Weeks Disposition Disposition (needs filled in before D/C Order can be placed): Home, Self Care Charges/Coding Visit Charges Inpatient E&M: 77585 Disch Hosp
== END 2022-03-01 14:10 | disposition home or self-care (01) | DRG 897 ==
LOC: ED 17:04 → MS3 17:31
PROVIDERS: Emergency Provider Student in an Organized Health Care Education/Training Program; PCP Family Medicine; Visit Provider Internal Medicine
DX: F10.239 Alcohol dependence with withdrawal, unspecified (principal); E03.9 Hypothyroidism, unspecified; K70.10 Alcoholic hepatitis without ascites; G80.9 Cerebral palsy, unspecified; F17.210 Nicotine dependence, cigarettes, uncomplicated; F41.9 Anxiety disorder, unspecified; K21.9 Gastro-esophageal reflux disease without esophagitis; G47.33 Obstructive sleep apnea (adult) (pediatric); E55.9 Vitamin D deficiency, unspecified; Z79.01 Long term (current) use of anticoagulants; F32.A Depression, unspecified; Z99.89 Dependence on other enabling machines and devices; Y90.9 Presence of alcohol in blood, level not specified
CPT/HCPCS: 80053; 80307; 82077; 83690; 85025; 87811; 96372; 97162; 97166; 99282; 99283; 99406; A4216

== ENCOUNTER 2023-03-16 12:30 | Outpatient (RCR) | payer MEDICARE, MEDICAID, SELFPAY ==
--- NOTE | 2022-12-21 13:57 | HP.PTEVAL ---
Patient's Visit Information GOOD RUBIO is a 57 year old M referred to Physical Therapy by Dr. Sai Cobian MD with a diagnosis of CP, spinal stenosis. Date of Evaluation: 12/21/22 Physical Therapist: Davy Turner DPT, OCS, CSCS - Visit Plan Frequency: 2-3x /Week Duration: 4-6 Weeks Plan: 2-3x/week for 4-6 weeks. 1. please teach HS, gastroc, psoas, quad and piriformis stretch adn get I at home or with dtrs help. Full ROM each LE joint each visit. 2. teach gym based machine strength LE adn core and posture to I with list. 3. LB AROM rotation adn flexion for spinal stenosis and home stretches. - Subjective Barbara dtr adn Blaine hinton present. I am out of shape and I need flexibility and stamina and strength. Cannot cook effectively as he has to sit alot. Sore at end of day when sits too much. Lives alone, one story house with steps and railing. Getting in and out of house is OK. Uses WC and wh walker to get around and sometimes hiking stick. WC for long distance. Basic ADLs are done but avoids eating sometimes as it is a hassle and needs strength. Sleep is OK most of time, pain from doing stuff like standing or walking, Pain in LB legs and feet. Has spinal stenosis. Sitting is OK. Not employed. No regular exercises at home. Dtr helps him at his house and will help him stretch. Has ellpitical and TM. - Pain LB Pain Intensity (Out of 10): 0 Pain Intensity Range: 0, 7 - Objective Walks into PT mod I with wh walker, stiff gait and very little knee flexion but able. Traser chair I, bed with min A to get back up. Steps with two rails I reciprocal but stiff and weak. UE aROM WFL and strength 4+/5. cervical aROM WFL. Lumbar AROM ext painful and max limited, SB mod limtied, flexion very stiff adn no pain. HS max tight at -60 90/90, gastroc tight to -3 PROM DF, High tone. Hips tight to 95 PROM flexion and 0 ext causing LB pain, quads tight as is psoas B. strength ankles 3+ in available ROM all directions, knees ext 4+, flexion 4- L and 4 R, hips 3 abd and ext and 4- flexion B. Unable to toe raise, can heel raise slightly. Can stand without support but not able to mobilize or move without LOB. - SLR, - slump test. - Balance/Special Test Scores Lower Extremity Functional Score: 28 - Goals Goal 1:: I appropriate gym strength of core and LE adn home stretching for psoas, quad, HS, gastroc and piriformis.(may have help of dtr) Goal Time Frame: 4-6 Weeks Goal 2:: Pt feel 50% better in overall mobility Goal Time Frame: 4-6 Weeks Goal 3:: LEFS score 35 Goal Time Frame: 4-6 Weeks - Rehabilitation Potential Physical Therapy Diagnosis: Tightness and tone limting funciton.Motivated to improve these. Rehabilitation Potential: Fair - Anticipated Interventions Patient/Client Instruction: Educate patient on: Condition, Plan of Care For the Purpose of:: To decrease pain, To increase ROM, To improve muscle performance and motor function, To improve ability of physical actions for home/community/work/leisure, To improve gait and locomotor functions Therapeutic Exercise to Include: Strength training, Balance training, Postural training, Flexibilty training, Passive ROM, Active ROM For the Purpose of:: To decrease pain, To increase ROM, To improve nutrient delivery to tissue, To improve muscle performance and motor function, To increase tolerance to activity/condition/position Thank you for the opportunity to evaluate your patient. For Medicare and Medicare HMO plans, please review the plan of care and approve it. It will need to be FAXED BACK to us at [phone] for Medicare purposes. For Medicare only, by signing this I certify the plan of care. Please let me know if there are questions or concerns regarding this plan of care. Physician Signature: Date:
--- NOTE | 2023-02-24 13:01 | HP.PTREVAL ---
Re-Evaluation Intro: Dr. Sai Cobian MD, It has been my pleasure to treat GOOD RUBIO over the last 12 visits for CP, spinal stenosis. Please see the progress note below for an update on the physical therapy plan of care! Subjective Subjective: I am getting somewhere, ROM getting better. Feels like he wants to be stronger. Used to workout for 3-4 hours per day. I can get on leg press now. No problem on other machines. Pain lately 5-6/10 in LB pretty consistent. Used to see [facility] but poor professionalism. Pt getting closer to I with machines but not ure ready yet. Also needs more aggressive stretching. Objective Objective/Function: Exit chair without UE I. Walks mod I back to PT with wh walker. Overall better verbiage as far as feeling better mobility and pain on days he works out. New goals, fair prognosis with compliance, seems in better place to try to gain I today. Plan Plan Plan: 2x/week x 2 weeks then 1x/week x 2 weeks to wean off therapy and onto I membership at . Pt to workout at least another time per week himself once he is once per week. Focus on I in gym, trampoline ball toss for balance and core and aggressive stretching manually and to I of HS, hips, lats, pecs, psoas, gastroc. Balance/Gait/Functional tests Balance/Special Test Scores Lower Extremity Functional Score: 28 Goals Goals Goal 1:: I appropriate gym strength of core and LE adn home stretching for psoas, quad, HS, gastroc and piriformis.(may have help of dtr) Goal Time Frame: 4-6 Weeks Goal Progress: Progressing, approp Goal 2:: Pt feel 50% better in overall mobility Goal Time Frame: 4-6 Weeks Goal Progress: 75% better PT days. Goal 3:: LEFS score 35 Goal Time Frame: 4-6 Weeks Goal Progress: appropriate Goal 4:: I standing tramp ball toss ex for HEP I aggressive home stretches I gym based strength Goal Time Frame: 2-4 Weeks Goal Progress: NEW GOALs Anticipated Interventions Anticipated Interventions Patient/Client Instruction: Educate patient on: Condition and Plan of Care For the Purpose of:: To decrease pain, To increase ROM, To improve muscle performance and motor function, To improve ability of physical actions for home/community/work/leisure and To improve gait and locomotor functions Therapeutic Exercise to Include: Strength training, Balance training, Postural training, Flexibilty training, Passive ROM and Active ROM For the Purpose of:: To decrease pain, To increase ROM, To improve nutrient delivery to tissue, To improve muscle performance and motor function and To increase tolerance to activity/condition/position Re-Evaluation Ending Re-evaluation ending: Please do not hesitate to contact me at [phone] by phone or if you have questions or concerns regarding this new plan of care! Sincerely, Davy Turner, DPT, OCS, CSCS
--- NOTE | 2023-03-16 13:25 | HP.PTDCSUM_ITS ---
Discharge Summary D/C summary: It has been my pleasure to treat GOOD RUBIO referred by Dr. Sai Cobian MD, with the diagnosis of CP, spinal stenosis for a total of 17 visit(s). Discharge Date: 03/16/23 Please see the following information for a summary of their discharge status. Subjective Subjective: I'm in pain. Might be the weather. 03/02 in [place], has pain management referral to / [facility] for this. Exercises going well , some days tougher usually based on flexibility or pain. Has not started once per week on own yet. Will have private hourly sessions for training. Pain LB: Pain Intensity (Out of 10): 8 Overall Improvement % Improvement: 75 Objective Objective/Function: Walking with stiff legs with wh walker I, bends knees well when cued. L ankle weak eversion. tightness obvious in adductors and HS(spasticity). appropriate to cotninue gyma dn home stretches on own and seeki pain doctor update from dr. Cobian. Goals Goal 1:: I appropriate gym strength of core and LE adn home stretching for psoas, quad, HS, gastroc and piriformis.(may have help of dtr) Goal Progress: Goal Met Goal 2:: Pt feel 50% better in overall mobility Goal Progress: 75% better PT days. Goal 3:: LEFS score 35 Goal Progress: NT Goal 4:: I standing tramp ball toss ex for HEP I aggressive home stretches I gym based strength Goal Progress: Goal Met, outside of tram Plan Plan: d/c D/C Information Discharge Comments: D/C to I gym, home stretches, will sign up as member and get physical fitness trainer. d/c sentence: If there are questions or concerns regarding this patient's physical therapy, please feel free to call me at [phone]. Thank you for the referral of this patient. Sincerely, Davy Turner, DPT, OCS, CSCS Balance/Gait/Functional tests Balance/Special Test Scores Lower Extremity Functional Score: 28 Improvement % Improvement: 75
== END 2023-03-16 13:40 | disposition home or self-care (01) ==
LOC: PT 12:30
PROVIDERS: PCP Family Medicine; Referring Provider Family Medicine; Visit Provider Family Medicine
DX: G80.9 Cerebral palsy, unspecified (principal)
CPT/HCPCS: 97110; 97162; 97164; 97530

== ENCOUNTER 2023-09-26 13:13 | Emergency (ER) | payer MEDICARE, MEDICAID, SELFPAY ==
[2023-09-26] VITALS (11 sets, daily range): BP systolic 107–135; BP diastolic 65–84; PULSE 50–69; RESP 16–18; TEMP 35.8–36.7; O2SAT 94–97; BMI 36.7
--- NOTE | 2023-09-26 13:41 | EKG12_ITS ---
Test Reason : TIA/CVA Blood Pressure : / mmHG Vent. Rate : 057 BPM Atrial Rate : 057 BPM P-R Int : 146 ms QRS Dur : 080 ms QT Int : 408 ms P-R-T Axes : 063 062 067 degrees QTc Int : 397 ms Sinus bradycardia Nonspecific T wave abnormality Abnormal ECG Confirmed by Chepe Valenzuela ([id number]), editor at large JOSS NUÑEZ ([id number]) on 09/28/2023 2:42:19 PM Referred By: CORDELIA Confirmed By:Chepe Valenzuela
[2023-09-26 14:25] LABS: Absolute Lymphocyte Count 2.25 X10^3/uL (0.83-4.51); Absolute Neutrophil Count 7.4 X10^3/uL (2.0-7.7); Basophil# 0.03 X10^3/uL; Basophil% 0.3 % (0-1); Eosinophil# 0.21 X10^3/uL; Eosinophils% 1.9 % (0-5); Lymphocyte # 2.25 X10^3/ul (0.83-4.51); Lymphocyte % 20.5 % (19-41); Mean Corp Hgb Conc 34.1 g/dL (32-36); Mean Corpuscular Hgb 30.9 pg (27.0-32.0); Mean Corpuscular Volume 90.7 fL (80-94); Mean Platelet Vol. 11.2 fl (6.2-12.0); Monocyte# 1.01 X10^3/uL; Monocyte% 9.2 % (0-10); NRBC Flagged by Analyzer 0 % (0-5); Neutrophil # 7.41 X10^3/uL (2.7-7.7); Neutrophil % 67.6 % (47-70); Platelet Count 258 K/mm3 (150-450); Red Blood Count 4.85 M/mm3 (4.6-6.2)
--- NOTE | 2023-09-26 14:31 | RAD_ITS ---
INDICATION: Stroke EXAMINATION/TECHNIQUE: X-RAY - XR Chest 1 View COMPARISON: Prior study dated: 02/04/2020. FINDINGS: LINES/DEVICES: None. LUNGS: No consolidation, edema or effusion. No pneumothorax. MEDIASTINUM AND CARDIOVASCULAR STRUCTURES: Cardiac silhouette not enlarged. Central airways and mediastinal contour are unremarkable. BONES AND SOFT TISSUES: Unremarkable. RAD/Chest 1 View (Portable) IMPRESSION: No radiographic evidence of acute cardiopulmonary disease. Electronically Signed: Kulwant Sewell MD at 14:43 EST ,
--- NOTE | 2023-09-26 14:31 | CT_ITS ---
We are attempting to reach an attending provider to discuss findings. An addendum with communication details will be sent when the communication is complete. INDICATION: dizzy EXAMINATION: CT BRAIN - CT Head or Brain W/O Contrast Injection TECHNIQUE: Multiple axial images were obtained of the head without intravenous contrast. A radiation dose optimization technique was used for this scan. IV Contrast dosage and agent: None. RADIATION DOSAGE (If Supplied By Facility): CTDIvol = ( 47.06 ) mGy, DLP = ( 855.03 ) mGycm COMPARISON: No relevant prior comparison study available FINDINGS: BRAIN PARENCHYMA: Focal acute 1.2 x 1.2 cm right frontal parenchymal hematoma. Mild chronic periventricular deep white matter changes. There is otherwise preservation of the kunz/white matter interface. Posterior fossa structures are unremarkable. CSF SPACES: Appropriate for age. No hydrocephalus. Basal cisterns are patent. CALVARIUM, SKULL BASE, PARANASAL SINUSES AND MASTOID AIR CELLS: Clear. No discrete lytic or blastic abnormalities. ORBITS: Both globes, extraocular muscles, optic nerves and retrobulbar fat appear unremarkable. CT/Brain/Head without Contrast IMPRESSION: Focal acute right frontal hematoma. Electronically Signed: Kulwant Sewell MD at 15:23 EST ,
--- NOTE | 2023-09-26 14:33 | EX.ED.DYSGE1 ---
HPI History of Present Illness Chief Complaint: Dizziness Informant: patient Onset/Context/Timing Onset: Days Context: Gradual Onset Timing: Continuous Quality - All: similar prior headaches Current Severity: Mild Maximum Severity: Mild Narrative Narrative: 58-year-old male complaining of dizziness which she describes as lightheadedness and foggy thoughts since Monday. Denies any headaches. No head trauma. Denies any illness. No fever, vomiting or diarrhea. He is not on any blood thinners. Denies any dysuria or changes of his bowel movements. He has mild cerebral palsy to the always has some difficulty walking that is not new or different. He has no new weakness or numbness to the upper or lower extremities. No visual change. No change in speech. Prior similar symptoms: No Recent Illness/Hospitalization: No PFSH PFSH Medical History Alcohol abuse Alcohol abuse Anxiety Cerebral palsy Chronic pain CPAP (continuous positive airway pressure) dependence History of trigger finger Sleep apnea Smoker Home Medications omeprazole 20 mg capsule,delayed release 20 mg PO DAILY GERD 02/05/19 [History Last Taken Unknown] multivitamin 1 tab PO DAILY supplement 12/04/20 [History Last Taken Unknown] acetaminophen 500 mg tablet 1,000 mg (2 x 500 mg) PO Q6H PRN PRN Pain Score 1-5 #0 tabs 12/23/20 [Rx Last Taken Unknown] citalopram 40 mg tablet 40 mg PO DAILY #0 tabs 12/23/20 [Rx Last Taken Unknown] lorazepam 1 mg tablet 1 mg PO Q8H PRN PRN Anxiety 02/27/22 [History Last Taken Unknown] vitamin B complex 1 tab PO DAILY 02/27/22 [History Last Taken Unknown] levothyroxine 175 mcg tablet 175 mcg PO DAILY 09/26/23 [History Last Taken Unknown] Allergy/AdvReac Type Severity Reaction Status Date / Time No Known Allergies Allergy Verified 09/26/23 13:15 Family History Other Cancer Diabetes Surgical History H/O hand surgery History of tonsillectomy Social History household members: other details: Roommate who does not help him cook or clean. Smoking Status: Former smoker alcohol intake: current alcohol intake frequency: 3 or more drinks per day Alcohol type: hard liquor ROS ROS ED ROS Narrative Denies nausea, vomiting or diarrhea. No fever. No dysuria. Review of Systems ROS Unobtainable: Denies due to encephalopathy Constitutional Constitutional ED: Denies anorexia Eyes Eyes: Reports none ENT ENT ED: Reports none Cardiovascular Cardiovascular: Reports none Respiratory/Chest Respiratory/Chest: Reports none Gastrointestinal Gastrointestinal: Reports none Genitourinary Genitourinary ED: Reports none Musculoskeletal Musculoskeletal: Reports none Integumentary Reports none Neurologic Neurologic: Reports none Psychiatric Psychiatric: Reports none Endocrine Endocrinology: Reports none Hematologic/Lymphatic Hematologic/Lymphatic: Reports none Allergic/Immunologic Allergic/Immunologic ED: Reports none EXAM Physical Exam Narrative Exam Narrative: Well-appearing 58-year-old male. Vital signs stable afebrile. Pulse ox 96% on room air no hypoxia. No distress. Family at bedside. H EENT exam unremarkable. Atraumatic. Pupils round reactive light. Normal speech. Moist weeks membranes. No droop. Neck nontender. No JVD. No lymphadenopathy. Lungs clear to auscultation bilaterally. Heart regular rhythm no murmur. Abdomen is soft and nontender. Moving all 4 extremities. Calves are nontender without edema or cords. Neurologically is awake alert. Answer questions following commands. 5 out of 5 silk soaker strength. Fingertip to nose within normal limits bilaterally. Dorsi and plantar flexion intact. No drift. Able to lift either leg off the bed. Const Vital Signs: 09/26/23 13:15 09/26/23 14:49 09/26/23 14:57 Temperature 96.4 F L Temperature Source Temporal Pulse Rate 65 Pulse Rate [Lying] 53 L Pulse Rate [Sitting (for 1 minute prior to obtaining)] 58 L Pulse Rate [Standing (for 1 minute prior to obtaining)] 69 Respiratory Rate 18 Blood Pressure 115/82 H Blood Pressure [Lying] 107/68 Blood Pressure [Sitting (for 1 minute prior to obtaining)] 114/65 Blood Pressure [Standing (for 1 minute prior to obtaining)] 124/80 H Blood Pressure Mean 93 Blood Pressure Mean [Lying] 81 Blood Pressure Mean [Sitting (for 1 minute prior to obtaining)] 81 Blood Pressure Mean [Standing (for 1 minute prior to obtaining)] 94 Pulse Ox 96 97 Oxygen Delivery Method Room Air Room Air 09/26/23 15:59 09/26/23 16:00 09/26/23 16:00 Temperature 98.1 F 98.1 F 98.1 F Temperature Source Oral Oral Oral Pulse Rate 60 60 60 Pulse Rate [Lying] Pulse Rate [Sitting (for 1 minute prior to obtaining)] Pulse Rate [Standing (for 1 minute prior to obtaining)] Respiratory Rate 18 18 18 Blood Pressure 121/78 H 121/78 H 121/78 H Blood Pressure [Lying] Blood Pressure [Sitting (for 1 minute prior to obtaining)] Blood Pressure [Standing (for 1 minute prior to obtaining)] Blood Pressure Mean 92 92 92 Blood Pressure Mean [Lying] Blood Pressure Mean [Sitting (for 1 minute prior to obtaining)] Blood Pressure Mean [Standing (for 1 minute prior to obtaining)] Pulse Ox 96 96 96 Oxygen Delivery Method Room Air Room Air Room Air 09/26/23 16:15 09/26/23 16:30 Temperature 98.1 F 98.1 F Temperature Source Oral Oral Pulse Rate 60 55 L Pulse Rate [Lying] Pulse Rate [Sitting (for 1 minute prior to obtaining)] Pulse Rate [Standing (for 1 minute prior to obtaining)] Respiratory Rate 16 16 Blood Pressure 135/84 H 132/84 H Blood Pressure [Lying] Blood Pressure [Sitting (for 1 minute prior to obtaining)] Blood Pressure [Standing (for 1 minute prior to obtaining)] Blood Pressure Mean 101 100 Blood Pressure Mean [Lying] Blood Pressure Mean [Sitting (for 1 minute prior to obtaining)] Blood Pressure Mean [Standing (for 1 minute prior to obtaining)] Pulse Ox 96 94 Oxygen Delivery Method Room Air Room Air Positive well nourished, well developed, alert, oriented x3, no apparent distress, average body habitus, no limitations and healthy appearing; Negative for cachectic, contractures or unkempt General Appearance ED: active, cooperative, comfortable, well kempt and well developed; Negative for unkempt, cachectic or contractures Orientation / Consciousness: awake, oriented to person, oriented to place and oriented to time Exam Limitations: no limitations Nutritional Appearance: Negative for cachectic HEENT Reports normocephalic, head/scalp atraumatic and TM's clear normocephalic and normal to inspection External Ear: external ears normal External Auditory Canal: EAC's normal Tympanic Membrane ED: Yes TM's clear Mouth ED: Yes oral and palatal mucosa normal, Yes lips normal and Yes tongue normal Mouth: oral and palatal mucosa normal, lips normal and tongue normal Throat: posterior oropharynx normal Eyes PERRL, EOMs intact bilaterally, conjunctivae normal and no scleral icterus General Eye ED: Yes normal appearance of both eyes Periorbital: periorbital findings normal Eyelid: eyelids normal Conjunctiva: conjunctiva normal Sclera: sclera normal Pupil: PERRL Neck full ROM, No nuchal rigidity, no lymphadenopathy, supple, no meningeal signs, no JVD, No thyroid normal, No nodes and no carotid bruits General: normal visual inspection Lymph Lymphatic: no lymphadenopathy noted and no lymphedema noted; Negative for lymphedema or lymphadenopathy Chest Wall inspection of chest normal and palpation of chest normal Resp normal respiratory effort, normal air movement, no retractions, no use of accessory muscles, clear to auscultation bilaterally and percussion normal Effort and Inspection: able to speak in complete sentences Auscultation: clear to auscultation bilaterally Cardio regular rate, regular rhythm, S1 normal heart sound, S2 normal heart sound, no murmurs, no rub, no gallops and no JVD Palpation: normal PMI Rate: regular rate Rhythm: regular rhythm Heart Sounds: S1 normal and S2 normal GI normal to inspection, nondistended, normoactive bowel sounds, soft to palpation, non-tender, non-distended, no masses and no bruits; Negative for hepatosplenomegaly Palpation: soft; Negative for firm, tender or guarding Back/Spine no CVA tenderness, normal ROM, normal to inspection, thoracic and lumbar spine normal to inspection, no thoracic nor lumbar tenderness and thoraco-lumbar ROM normal Extremity normal to inspection, full ROM, no joint enlargement, no clubbing, cyanosis or edema, no calf tenderness and no pedal edema Neuro oriented x3, CN's II-XII intact bilaterally, moves all extremities and no focal motor deficits Sensorium / Orientation: awake, alert, oriented to person, oriented to place and oriented to time; Negative for orientation impaired, confused or lethargic Meningeal Signs: no meningeal signs Speech: speech normal Motor Exam: strength 5/5 throughout Psych mental status grossly normal, thought process normal, cooperative, affect normal, speech normal and activity/motor behavior normal Appearance: grossly normal; Negative for unkempt Attitude: calm and engaged Mood & Affect: euthymic mood Thought Process: normal thought process Thought Content: normal thought content Memory / Cognition: memory grossly intact Skin no rashes or lesions noted, no wounds, skin turgor normal, no jaundice, no petechiae and no mottling General Skin Exam: no breakdown Lesions: no lesions Rashes: no rashes Trauma: no lacerations or abrasions Hair: normal Nails: normal MDM MDM MDM Narrative Medical decision making narrative: 58-year-old male history of hypothyroidism with lightheadedness. Exam in bed unremarkable. Normal neurologic exam. CAT scan labs pending. Repeat exam patient is doing well at 3:15 PM. He is awake alert talking his neurologic exam is unchanged. His daughter is at bedside. I went over his test with him and specifically the CAT scan showing the right frontal intracranial bleed. We are contacting local hospital to see who is available to take him. The [facility] are currently on transfer bypass. I am trying [facility]. I stated excepted the patient. We are setting up transportation. We are attempting to get a CTA head and neck prior to transfer and will send all the images down [facility]. At this time the patient is awake and alert. His most recent blood pressure is 121/76. I do not think he needs to be started on any medications. Patient be sent by ground lights and sirens. Helicopters are not flying. Currently he is very stable. Radiologist called me into the patient's CTA around 5:45 PM. He thinks this may be a venous angioma or some type of vascular malformation. He starting to think that this may not be an acute intracranial bleed. He would like further evaluation of the patient I will discuss this with the patient and he will still be transferred to [facility] for further evaluation and expertise. History & Record Review Discussion w/independent historian: Patient Additional record(s) reviewed:: Prior inpatient record, Prior outpatient record, Prior ED visit and Prior labs Lab Data Attestation: I reviewed the patient's lab results. Lab results narrative: CBC shows a white count of 11. H&H of 15 and 44. Platelets 258. EKG shows a sinus bradycardia rate of 57. PT/INR 12 and 0.9. PTT 28. All normal. Chemistries showed 8. BUN 23 creatinine 1.2. Glucose 121. CT brain right frontal hematoma (intracranial bleed). Labs: Laboratory Results - last 24 hr 09/26/23 14:15 WBC 11.0 RBC 4.85 Hgb 15.0 Hct 44.0 MCV 90.7 MCH 30.9 MCHC 34.1 RDW Std Deviation 43.0 RDW Coeff of Ras 13.0 Plt Count 258 MPV 11.2 Immature Gran % (Auto) 0.500 Neut % (Auto) 67.6 Lymph % (Auto) 20.5 Centre % (Auto) 9.2 Eos % (Auto) 1.9 Baso % (Auto) 0.3 Absolute Neuts (auto) 7.4 Absolute Lymphs (auto) 2.25 Nucleated RBC % 0 PT 12.5 INR 0.9 APTT 28.9 Sodium 140 Potassium 4.1 Chloride 105 Carbon Dioxide 27.0 Anion Gap 8 BUN 23 H Creatinine 1.22 Estim Creat Clear Calc 73.60 Est GFR (MDRD) Af Amer 79 Est GFR (MDRD) Non-Af 65 BUN/Creatinine Ratio 18.9 Glucose 121 H Calcium 9.6 Radiography Diagnostic Testing: Clinical Impression(s) from Imaging Studies Brain CT 09/26/23 14:31 IMPRESSION: Focal acute right frontal hematoma. Electronically Signed: Kulwant Sewell MD at 15:23 EST , ADDENDUM: 09/26/23 1532 IMPRESSION: Focal acute right frontal hematoma. N.B. : The above Results were Read Back by Kulwant Sewell MD to Darien Rosa MD, and understanding confirmed on 09/26/2023 15:25:33 (ET). Electronically Signed: Kulwant Sewell MD at 15:23 EST , Chest X-Ray 09/26/23 14:31 IMPRESSION: No radiographic evidence of acute cardiopulmonary disease. Electronically Signed: Kulwant Sewell MD at 14:43 EST , Head/Neck CTA 09/26/23 16:04 IMPRESSION: Findings the appearance of possible venous angioma or other nonspecific anomaly in the right frontal lobe Otherwise normal CTA of the head and neck Electronically Signed: Ronald Hood MD at 17:18 EST , ADDENDUM: 09/26/23 1746 IMPRESSION: Findings the appearance of possible venous angioma or other nonspecific anomaly in the right frontal lobe Otherwise normal CTA of the head and neck N.B. : The above Results were Read Back by Ronald Hood MD to Ronald Rosa MD, and understanding confirmed on 09/26/2023 17:39:27 (ET). Electronically Signed: Ronald Hood MD at 17:18 EST , Chest x-ray, portable, single view interpreted by myself and radiologist shows no acute abnormality. Chronic changes. Cardiac silhouette and lung casillas. Normal Rhythm Strip Rhythm Strip: Sinus bradycardia Rate: 57 Ectopy: None EKG Initial EKG: Attestation: I personally reviewed and interpreted this EKG as follows: Interpretation: Sinus Bradycardia Comments: Sinus bradycardia rate of 57 no acute signs of NM or ischemia. Critical Care Time Critical Care Time: Yes Critical care time (excluding procedures): 30-74 minutes, Including time spent:, Discussing w/Consultants, Arranging Admission or Transfer, Performing Direct Patient Care at Bedside and - (35 minutes.) Discharge Plan Triage Chief Complaint: Dizziness ED Provider: Darien Rosa Dx/Rx/DC Orders Clinical Impression: Acute intra-cranial hemorrhage Prescriptions: No Action omeprazole 20 MG capsule 20 mg PO DAILY multivitamin Tablet 1 tab PO DAILY acetaminophen 500 mg Tablet 1,000 mg PO Q6H PRN PRN (Reason: Pain Score 1-5) Qty: 0 0RF citalopram 40 mg Tablet 40 mg PO DAILY Qty: 0 0RF vitamin B complex Tablet 1 tab PO DAILY lorazepam 1 mg tablet 1 mg PO Q8H PRN PRN (Reason: Anxiety) levothyroxine 175 mcg tablet 175 mcg PO DAILY Patient Comments: take 1 tablet by mouth every morning ON AN EMPTY STOMACH for THYROID Primary Care Provider: Sai Cobian Referrals: Sai Cobian MD [Primary Care Provider] - Disposition Disposition: Acute Care Hospital
[2023-09-26 14:36] LABS: International Normalized Ratio 0.9; Prothrombin Time (Protime)PT. 12.5 SECONDS (11.7-14.9)
[2023-09-26 14:37] LABS: Partial Thromboplast Time 28.9 Seconds (24.1-36.2)
[2023-09-26 14:39] LABS: Anion Gap 8 (5-15); BUN 23 mg/dL (7-18); BUN/Creat Ratio 18.9 RATIO (10-20); Calcium,Total 9.6 mg/dL (8.5-10.1); Chloride 105 mmol/L (98-107); Creatinine, Serum 1.22 mg/dL (0.70-1.30); EST Glomerular Filtration Rate 65 mL/min (>60); Est Glom Filt Rate - Afr Amer 79 mL/min (>60); Glucose 121 mg/dL (74-106); Potassium 4.1 mmol/L (3.5-5.1); Sodium Level 140 mmol/L (136-145)
--- NOTE | 2023-09-26 16:04 | CT_ITS ---
We are attempting to reach an attending provider to discuss findings. An addendum with communication details will be sent when the communication is complete. STUDY: CTA HEAD AND NECK WITH CONTRAST REASON FOR EXAM: Male, 58 years old. intracranial bleed RADIATION DOSAGE (If Supplied By Facility): CTDIvol = ( 23.42 ) mGy, DLP = ( 884.66 ) mGycm TECHNIQUE: CT angiography was performed with a multi-detector CT scanner. Data acquisition was obtained from the skull base through the vertex following intravenous administration of IV 100mL [id number]-370. MIP images were reconstructed from the axial data set. Post-processing of the angiographic images was performed, with multiplanar reformation and 3D reconstruction. Individualized dose optimization techniques were used for this CT. COMPARISON: No relevant priors. FINDINGS: Normal bilateral petrous carotid arteries. Normal right cavernous carotid artery with a normal supraclinoid bifurcation. Normal left cavernous carotid artery with a normal supraclinoid bifurcation. Normal right A1 segments of the anterior cerebral artery. Normal left A1 segments of the anterior cerebral artery. Normal intact anterior communicating artery (ACOM). Normal bilateral A2 segments of the anterior cerebral arteries. Normal right M1 and M2 segments of the middle cerebral arteries, with a normal M1 bifurcation. Normal left M1 and M2 segments of the middle cerebral arteries, with a normal M1 bifurcation. Normal right posterior communicating artery (PCOM). Hypoplastic left posterior communicating artery (PCOM). Normal bilateral vertebral arteries. Normal basilar artery with a normal basilar bifurcation. The visualized bilateral superior cerebellar (SCA) arteries are normal. Normal bilateral P1, P2 and visualized P3 segments of the posterior cerebral arteries. There is no demonstrated aneurysm of the [place]. In the right frontal lobe, there is vascular lesion which has the appearance of prominent draining vein and other smaller draining vessels possibly representing a venous angioma or other nonspecific vascular lesion. AORTIC ARCH: Normal visualized aortic arch. Normal origins of the brachiocephalic, left common carotid, and left subclavian arteries. RIGHT CAROTID ARTERIES: Normal right common carotid artery (CCA). Normal right common carotid bulb. Normal origin of the right internal carotid (ICA) artery without a hemodynamically significant stenosis. Normal visualized cervical portion of the right internal carotid artery. Normal origin of the right external carotid artery (ECA). LEFT CAROTID ARTERIES: Normal left common carotid artery (CCA). Normal left common carotid bulb. Normal origin of the left internal carotid (ICA) artery without a hemodynamically significant stenosis. Normal visualized cervical portion of the left internal carotid artery. Normal origin of the left external carotid artery (ECA). VERTEBRAL ARTERIES: Normal bilateral vertebral arteries. CT/CTA Head AND Neck W/ Contrast IMPRESSION: Findings the appearance of possible venous angioma or other nonspecific anomaly in the right frontal lobe Otherwise normal CTA of the head and neck Electronically Signed: Ronald Hood MD at 17:18 EST ,
== END 2023-09-26 19:50 | disposition short-term general hospital (02) ==
PROVIDERS: Emergency Provider Emergency Medicine; PCP Family Medicine; Visit Provider Emergency Medicine
DX: I62.9 Nontraumatic intracranial hemorrhage, unspecified (principal); G80.9 Cerebral palsy, unspecified; Z87.891 Personal history of nicotine dependence; R26.2 Difficulty in walking, not elsewhere classified; G47.30 Sleep apnea, unspecified; Z99.89 Dependence on other enabling machines and devices; F41.9 Anxiety disorder, unspecified; Z79.899 Other long term (current) drug therapy; E03.9 Hypothyroidism, unspecified
CPT/HCPCS: 70450; 70496; 70498; 71045; 80048; 85025; 85610; 85730; 93005; 99285; Q9967; A4216

== ENCOUNTER 2024-04-23 14:47 | Emergency (ER) | payer MEDICARE, MEDICAID, SELFPAY ==
[2024-04-23 14:47] VITALS: BP 137/73; PULSE 57; RESP 14; TEMP 36.8; O2SAT 99; BMI 38.2
--- NOTE | 2024-04-23 15:51 | EKG12_ITS ---
Test Reason : GENERAL Blood Pressure : / mmHG Vent. Rate : 054 BPM Atrial Rate : 054 BPM P-R Int : 150 ms QRS Dur : 086 ms QT Int : 434 ms P-R-T Axes : 067 070 064 degrees QTc Int : [address] & T wave abnormality, consider anterior ischemia Abnormal ECG Confirmed by CHRIS AREVALO, HEDY ([id number]), graphics editor RENARD WILSON ([id number]) on 04/25/2024 1:20:26 PM Referred By: Confirmed By:HEDY PEREZ MD
[2024-04-23] MEDS: 0.9% Normal Saline (1000mL) 1,000 ML 999 ML IV (16:01)
[2024-04-23 16:12] LABS: Absolute Lymphocyte Count 2.33 X10^3/uL (0.83-4.51); Absolute Neutrophil Count 6.6 X10^3/uL (2.0-7.7); Basophil# 0.03 X10^3/uL; Basophil% 0.3 % (0-1); Eosinophil# 0.12 X10^3/uL; Eosinophils% 1.2 % (0-5); Hematocrit 42.2 % (40-54); Hemoglobin 13.7 g/dL (13.0-16.5); Lymphocyte # 2.33 X10^3/ul (0.83-4.51); Lymphocyte % 23.3 % (19-41); Mean Corp Hgb Conc 32.5 g/dL (32-36); Mean Corpuscular Hgb 29.4 pg (27.0-32.0); Mean Corpuscular Volume 90.6 fL (80-94); Mean Platelet Vol. 11.4 fl (6.2-12.0); Monocyte# 0.84 X10^3/uL; Monocyte% 8.4 % (0-10); NRBC Flagged by Analyzer 0 % (0-5); Neutrophil # 6.61 X10^3/uL (2.7-7.7); Neutrophil % 66.1 % (47-70); Platelet Count 244 K/mm3 (150-450); RBC Distribution Width CV 12.5 % (11.6-14.6); RBC Distribution Width SD 40.8 fl (35.1-43.9); Red Blood Count 4.66 M/mm3 (4.6-6.2)
[2024-04-23 16:25] LABS: ALB/GLOB Ratio 0.9 RATIO (0.9-2.4); AST(SGOT) 15 U/L (15-37); Alanine Aminotransfer ALT/SGPT 31 U/L (16-61); Albumin, Serum 3.6 g/dL (3.2-5.0); Alkaline Phosphatase 92 U/L (45-117); Anion Gap 6 (5-15); BUN 20 mg/dL (7-18); BUN/Creat Ratio 17.2 RATIO (10-20); Calcium,Total 9.2 mg/dL (8.5-10.1); Chloride 107 mmol/L (98-107); Creatinine, Serum 1.16 mg/dL (0.70-1.30); EST Glomerular Filtration Rate 69 mL/min (>60); Est Glom Filt Rate - Afr Amer 84 mL/min (>60); Estimated Creatinine Clearance 78.99 ml/min; Glucose 96 mg/dL (74-106); Lipase 32 U/L (13-75); Protein, Total 7.6 g/dL (6.4-8.2); Sodium Level 138 mmol/L (136-145); Troponin-I HS 6 pg/mL (3.0-78.0)
--- NOTE | 2024-04-23 16:48 | CT_ITS ---
INDICATION: abd pain, bloody bowel movements X2 EXAMINATION: CTA abdomen and pelvis - TECHNIQUE: Routine abdominal CT angiogram protocol was performed with IV contrast. MIP images provided. A radiation dose optimization technique was used for this scan. IV Contrast dosage and agent: Radiation dose DLP mGy / cm. COMPARISON: None. FINDINGS: Lung bases: Normal. Liver: Nonspecific fatty infiltrated liver without mass or bile duct dilatation Gallbladder: Normal. Spleen: Normal. Adrenal gland: Normal. Kidneys: Normal. No hydronephrosis or stone formation. Pancreas:Normal. Bowel gas pattern: Nonobstructive. Diverticular changes of the descending colon with subtle focal stranding in the fat at the level of the mid descending colon possibly representing mild acute diverticulitis Appendix: Normal. Free air: None. Free fluid: None. Pelvis: Pelvic organs: Nonspecific enlargement of prostate Bone survey: Lumbar spine demonstrates mild spondylosis No aggressive bony lesions. No acute fractures. Adenopathy: No significant pathologic adenopathy detected. Bilateral fat-containing inguinal hernias Vascular: Normal vascular anatomy, CT/CTA Abd/Pelvis W/WO Contrast IMPRESSION: Diverticulosis and findings suggestive of mild acute diverticulitis of the mid descending colon No focal extravasation of contrast within the bowel lumen to suggest acute GI hemorrhage Tagged radionuclide red blood cell study would be helpful for further evaluation if indicated Electronically Signed: Ronald Hood MD at 17:17 EDT ,
[2024-04-23 16:58] VITALS: BP 134/84; PULSE 58; RESP 14; O2SAT 98
[2024-04-23 18:00] VITALS: BP 130/83; PULSE 55; RESP 16; O2SAT 97
--- NOTE | 2024-04-23 19:38 | EX.ED.DYSGE1 ---
HPI History of Present Illness Chief Complaint: GI Bleed Narrative Narrative: Patient is a 58-year-old male with past medical history of anxiety, JODEE, cerebral palsy who presented to the emergency department with a chief complaint of blood in his stool and some abdominal pain. Patient states on Monday he had a bowel movement noted that he had bright red blood in his stool. He states that that only happened 1 time and then went away over the weekend. He states that then again today he noted that he had some abdominal pain and had a bowel movement which noted that he had bright red blood again which prompted him to come here for the valuation management. Patient denies any blood thinning medications. Patient otherwise feels well denies any sick contacts. [facility] Medical History Alcohol abuse Anxiety History of trigger finger Alcohol abuse Chronic pain Smoker CPAP (continuous positive airway pressure) dependence Sleep apnea Cerebral palsy Home Medications ?Medication ?Instructions ?Recorded ?Last Taken ?Type omeprazole 20 mg capsule,delayed 20 mg PO DAILY GERD 02/05/19 04/23/24 History release multivitamin 1 tab PO DAILY supplement 12/04/20 04/22/24 History acetaminophen 500 mg tablet 1,000 mg (2 x 500 mg) PO Q6H PRN 12/23/20 Unknown Rx PRN Pain Score 1-5 #0 tabs citalopram 40 mg tablet 40 mg PO DAILY #0 tabs 12/23/20 04/23/24 Rx lorazepam 1 mg tablet 1 mg PO Q8H PRN PRN Anxiety 02/27/22 04/22/24 History vitamin B complex 1 tab PO DAILY 02/27/22 04/22/24 History levothyroxine 175 mcg tablet 175 mcg PO DAILY 09/26/23 04/22/24 History amoxicillin 500 mg-potassium 1 tab PO Q12H 7 days #14 tabs 04/23/24 Unknown Rx clavulanate 125 mg tablet (Augmentin) Allergy/AdvReac Type Severity Reaction Status Date / Time No Known Allergies Allergy Verified 04/23/24 14:47 Family History Other Cancer Diabetes Surgical History History of tonsillectomy H/O hand surgery Social History household members: other details: Roommate who does not help him cook or clean. Smoking Status: Former smoker alcohol intake: current alcohol intake frequency: 3 or more drinks per day Alcohol type: hard liquor ROS ROS ED ROS Narrative Constitutional: Denies fevers, chills, headaches, lightness, dizziness Eyes: Denies change in vision double vision blurry vision Cardiovascular: Denies chest pain or palpitations Respiratory: Denies coughing wheezing shortness of breath Abdomen: Complains of abdominal pain and blood in stool as noted above denies vomiting or diarrhea : Denies any urinary symptoms Neurological: Denies any numbness, weakness, tingling Musculoskeletal: Denies back pain Skin: Denies rashes or lesions EXAM Physical Exam Narrative Exam Narrative: General: Patient lying in bed rest comfortably did not appear to be in acute distress Head: Atraumatic, normocephalic Eyes: PERRL bilateral, EOMI bilateral, no conjunctival injection noted Neck: Soft, supple, trachea midline Cardiovascular: Regular rate and rhythm no murmurs gallops rubs noted Respiratory: Clear to auscultation bilaterally no rales rhonchi or wheeze noted Abdomen: Soft, nondistended, n tender to palpation in the left lower quadrant no rebound or guarding on exam, bowel sounds present x 4 Extremities: +5/5 strength noted in the bilateral upper and lower extremities, no pedal edema exam Neurological: Patient follow commands knew that he was at [facility] years 2023 Skin: Warm, dry, intact Const Vital Signs: 04/23/24 14:47 04/23/24 16:58 04/23/24 18:00 Temperature 98.3 F Temperature Source Temporal Pulse Rate 57 L 58 L 55 L Respiratory Rate 14 14 16 Blood Pressure 137/73 H 134/84 H 130/83 H Blood Pressure Mean 94 100 98 Pulse Ox 99 98 97 Oxygen Delivery Method Room Air Room Air Room Air MDM MDM MDM Narrative Medical decision making narrative: Patient is a 58-year-old male who presents to the emergency department chief complaint of abdominal pain and hematochezia. Patient will have workup performed here on the differential diagnose includes but not limited to ischemic colitis, diverticulitis, hemorrhoids. Once workup is obtained reviewed he will be reevaluated. Patient CBC reviewed showed no evidence leukocytosis white blood count normal at 10, hemoglobin stable 13.7, platelet count normal at 244. Patient's sodium normal 138, potassium normal 4, creatinine normal at 1.16. Patient's lactic acid was normal at 1, AST and ALT were 15 and 31 respectively, troponin normal at 6. Patient's EKG reviewed and independently interpreted by myself which showed sinus bradycardia with nonspecific ST changes noted in leads V1 to V3. This was compared to his previous EKG on 09/26/2023 which was similar in nature. Patient CT angio abdomen pelvis was reviewed and showed diverticulosis and findings suggestive of mild acute diverticulitis of the mid descending colon no focal extravasation of contrast within the bowel lumen to suggest acute GI hemorrhage. Rectal exam was performed and patient did have brown stool noted no gross red blood noted. This was sent for studies. Once again the patient is nontoxic in appearance abdomen on repeat exam at 7:43 PM remains benign with very little tenderness palpation the left lower quadrant. Will place him on Augmentin for his diverticulitis he was given referral to gastroenterology Dr. Wood. He was encouraged to follow-up with him and his primary care physician outpatient setting. He is advised to return with worsening pain, fevers, inability tolerate oral intake or any other concerns. He and his significant other at bedside are agreeable this plan all question concerns answered at bedside he is discharged home in stable condition. Lab Data Labs: Laboratory Results - last 24 hr 04/23/24 04/23/24 15:57 16:18 WBC 10.0 RBC 4.66 Hgb 13.7 Hct 42.2 MCV 90.6 MCH 29.4 MCHC 32.5 RDW Std Deviation 40.8 RDW Coeff of Ras 12.5 Plt Count 244 MPV 11.4 Immature Gran % (Auto) 0.700 Neut % (Auto) 66.1 Lymph % (Auto) 23.3 Rapides % (Auto) 8.4 Eos % (Auto) 1.2 Baso % (Auto) 0.3 Absolute Neuts (auto) 6.6 Absolute Lymphs (auto) 2.33 Nucleated RBC % 0 Sodium 138 Potassium 4.0 Chloride 107 Carbon Dioxide 25.0 Anion Gap 6 BUN 20 H Creatinine 1.16 Estim Creat Clear Calc 78.99 Est GFR (MDRD) Af Amer 84 Est GFR (MDRD) Non-Af 69 BUN/Creatinine Ratio 17.2 Glucose 96 Lactic Acid 1.0 Calcium 9.2 Total Bilirubin 0.30 AST 15 ALT 31 Alkaline Phosphatase 92 Troponin I High Sens 6 Total Protein 7.6 Albumin 3.6 Globulin 4.0 Albumin/Globulin Ratio 0.9 Lipase 32 Blood Type Cancelled Antibody Screen Cancelled NEGATIVE Radiography Diagnostic Testing: Clinical Impression(s) from Imaging Studies Abdomen/Pelvis CTA 04/23/24 16:48 IMPRESSION: Diverticulosis and findings suggestive of mild acute diverticulitis of the mid descending colon No focal extravasation of contrast within the bowel lumen to suggest acute GI hemorrhage Tagged radionuclide red blood cell study would be helpful for further evaluation if indicated Electronically Signed: Ronald Hood MD at 17:17 EDT , Discharge Plan Triage Chief Complaint: GI Bleed ED Provider: Franklyn Donaldson Dx/Rx/DC Orders Clinical Impression: Diverticulitis, Abdominal pain Prescriptions: New amoxicillin-pot clavulanate [Augmentin] 500-125 mg tablet 1 tab PO Q12H 7 Days Qty: 14 0RF No Action omeprazole 20 MG capsule 20 mg PO DAILY multivitamin Tablet 1 tab PO DAILY acetaminophen 500 mg Tablet 1,000 mg PO Q6H PRN PRN (Reason: Pain Score 1-5) Qty: 0 0RF citalopram 40 mg Tablet 40 mg PO DAILY Qty: 0 0RF vitamin B complex Tablet 1 tab PO DAILY lorazepam 1 mg tablet 1 mg PO Q8H PRN PRN (Reason: Anxiety) levothyroxine 175 mcg tablet 175 mcg PO DAILY Patient Comments: take 1 tablet by mouth every morning ON AN EMPTY STOMACH for THYROID Primary Care Provider: Sai Cobian Referrals: Sai Cobian MD [Primary Care Provider] - Friend,DO Ozzy [Med Staff - Active Staff] - Activity Restrictions/Additional Instructions: Take antibiotics as prescribed. Follow-up with your primary care physician outpatient setting as well as the environmental services lead that you are referred to. Return with worsening symptoms, fevers, not tolerating oral intake with vomiting or any other concerns. Print Language: Croatian Disposition Disposition: Home, Self Care
[2024-04-23 19:46] VITALS: BP 122/86; PULSE 69; RESP 18; TEMP 36.6; O2SAT 98
== END 2024-04-23 19:53 | disposition home or self-care (01) ==
PROVIDERS: Emergency Provider Emergency Medicine; PCP Family Medicine; Visit Provider Emergency Medicine
DX: K57.92 Diverticulitis of intestine, part unspecified, without perforation or abscess without bleeding (principal); R10.814 Left lower quadrant abdominal tenderness; F41.9 Anxiety disorder, unspecified; Z87.891 Personal history of nicotine dependence; G47.33 Obstructive sleep apnea (adult) (pediatric); Z99.89 Dependence on other enabling machines and devices; Z79.899 Other long term (current) drug therapy
CPT/HCPCS: 74174; 80053; 82274; 83605; 83690; 84484; 85025; 86850; 86900; 86901; 93005; 96360; 99283; J7030; Q9967; A4216

== ENCOUNTER 2024-07-22 15:32 | Emergency (ER) | payer MEDICARE, MEDICAID, SELFPAY ==
[2024-07-22 15:33] VITALS: BP 124/77; PULSE 62; RESP 16; TEMP 36.6; O2SAT 99
--- NOTE | 2024-07-22 17:15 | RAD_ITS ---
INDICATION: PAIN EXAMINATION/TECHNIQUE: X-RAY - RIGHT XR Tibia/Fibula 2 Views 2 VIEWS COMPARISON: FINDINGS: SOFT TISSUES: No soft tissue swelling or gas. No radiopaque foreign body. BONES/JOINTS: No acute fracture or subluxation.. Normal alignment. Preservation of the joint space.. No sclerotic or destructive changes observed. RAD/Tibia & Fibula 2 Views IMPRESSION: Negative. Electronically Signed: Ang Triana DO at 17:51 EST ,
--- NOTE | 2024-07-22 19:24 | CT_ITS ---
CT RIGHT LOWER EXTREMITY WITH 3-D IMAGING CLINICAL INDICATION: continued pain -- right knee and tib fib proximal TECHNIQUE: Axial CT images of the RIGHT lower extremity was performed IV contrast material. Coronal and sagittal reformats were provided. The protocol utilizes one or more of the following dose reduction techniques: automated exposure control, adjustment of mA and/or kV according to patient size,and/or use of iterative reconstruction technique. RADIATION DOSAGE (If Supplied By Facility): CTDIvol = ( 15.35 ) mGy, DLP = ( 1291.83 ) mGycm COMPARISON: FINDINGS: Bones: Nondisplaced fracture at the proximal fibula. No lytic or blastic osseous masses. Soft Tissues: The deep soft tissue structures are unremarkable. The superficial soft tissues are unremarkable without evidence of edema, hematoma, or foreign body. CT/Extremity Lower without Contra IMPRESSION: Fracture at the proximal fibula. Electronically Signed: Ang Triana DO at 20:07 EST Reading Location ID and State: [facility] / [place] Tel [phone], Service support ,
[2024-07-22 19:56] VITALS: BP 122/70; PULSE 55; RESP 16; O2SAT 98
--- NOTE | 2024-07-22 21:31 | EX.ED.DYSGE1 ---
HPI History of Present Illness Chief Complaint: Lower Extremity Injury Narrative Narrative: Patient is a 59-year-old male with a past medical history of of cerebral palsy, JODEE on CPAP, anxiety who presents to the emerged part with chief complaint of right lower extremity pain. Patient states that on Monday he was walking his leg gave out and he had pain in the right side of his leg. He states that he went to [facility] had an x-ray obtained and was told that everything was normal. He states that he is having significant amount of pain still therefore he came here further evaluation management. He states he has been ambulating with a walker at home secondary to the pain. [facility] Medical History Alcohol abuse Anxiety History of trigger finger Alcohol abuse Chronic pain Smoker CPAP (continuous positive airway pressure) dependence Sleep apnea Cerebral palsy Home Medications ?Medication ?Instructions ?Recorded ?Last Taken ?Type omeprazole 20 mg capsule,delayed 20 mg PO DAILY GERD 02/05/19 04/23/24 History release multivitamin 1 tab PO DAILY supplement 12/04/20 04/22/24 History acetaminophen 500 mg tablet 1,000 mg (2 x 500 mg) PO Q6H PRN 12/23/20 Unknown Rx PRN Pain Score 1-5 #0 tabs citalopram 40 mg tablet 40 mg PO DAILY #0 tabs 12/23/20 04/23/24 Rx lorazepam 1 mg tablet 1 mg PO Q8H PRN PRN Anxiety 02/27/22 04/22/24 History vitamin B complex 1 tab PO DAILY 02/27/22 04/22/24 History levothyroxine 175 mcg tablet 175 mcg PO DAILY 09/26/23 04/22/24 History amoxicillin 500 mg-potassium 1 tab PO Q12H 7 days #14 tabs 04/23/24 Unknown Rx clavulanate 125 mg tablet (Augmentin) ondansetron 4 mg disintegrating 4 mg PO Q6H PRN nausea and 07/22/24 Unknown Rx tablet vomiting #30 tabs oxycodone-acetaminophen 5 mg-325 1 tab PO Q6H PRN pain 3 days #12 07/22/24 Unknown Rx mg tablet (Endocet) tabs Allergy/AdvReac Type Severity Reaction Status Date / Time No Known Allergies Allergy Verified 12/30/24 15:33 Family History Other Cancer Diabetes Surgical History History of tonsillectomy H/O hand surgery Social History household members: other details: Roommate who does not help him cook or clean. Smoking Status: Current every day smoker tobacco type: cigarettes and e-cigarettes alcohol intake: current alcohol intake frequency: 3 or more drinks per day Alcohol type: hard liquor ROS ROS ED ROS Narrative Constitutional: Denies any fevers, chills, headaches, lightness, dizziness Neurological: Denies any numbness, weakness, tingling Musculoskeletal: Complains of right knee pain as noted above Skin: Denies any rashes or lesions EXAM Physical Exam Narrative Exam Narrative: General: Patient sitting in wheelchair in the hallway resting comfortably did not appear to be in acute distress Head: Atraumatic, normocephalic Eyes: PERRL body, EOMI bilateral, no conjunctival injection noted Neck: Soft, supple, trachea Cardiovascular: Regular rate and rhythm Respiratory: Clear to auscultation bilaterally Musculoskeletal: Patient has tenderness to palpation of the lateral aspect of his right knee he does have full range of motion of his right knee with minimal pain noted laterally. No pain to palpation distally all other bony prominences palpated joints taken full range of motion no pain elicited Extremities: DP pulses +2/4 in the bilateral lower extremities, compartment soft compressible, +4/5 strength noted in the bilateral upper and lower extremities Neurological: Patient following commands knew that he was at [facility] years 2023. Sensation grossly intact Skin: Warm, dry, intact no rashes or lesions noted Const Vital Signs: 07/22/24 15:33 07/22/24 19:56 Temperature 98 F Temperature Source Oral Pulse Rate 62 55 L Respiratory Rate 16 16 Blood Pressure 124/77 H 122/70 H Blood Pressure Mean 92 87 Pulse Ox 99 98 Oxygen Delivery Method Room Air Room Air MDM MDM MDM Narrative Medical decision making narrative: Patient is a 59-year-old male who presented to the emergency department the chief complaint of right knee pain. Patient had a x-ray performed prior to my evaluation this was reviewed by myself and by radiology. On the differential diagnose includes but limited to tibial plateau fracture, fibular fracture, l lateral collateral ligament injury. Once workup is obtained reviewed he will be reevaluated. Patient's x-ray reviewed once again by myself and by radiology showed no acute findings. Given the patient is still having significant pain we will add a CT of his right knee down through his ankle joint on. That this was reviewed and showed a fracture at the proximal fibula. Called and discussed case with on-call orthopedic surgeon Dr. Forrest who states that the patient can continue to use his walker and do protected weightbearing and follow-up in his office by the end of the week. I gave the contact information of the patient. Patient be given a short course of Percocet and Zofran for severe pain he is otherwise to use Tylenol and ibuprofen for mild to moderate pain. He he was encouraged return with worsening symptoms or concerns. He is agreeable to plan he would like to go home all question concerns answered he is discharged home in stable condition. Radiography Diagnostic Testing: Clinical Impression(s) from Imaging Studies Tibia/Fibula X-Ray 07/22/24 17:15 IMPRESSION: Negative. Electronically Signed: Ang Triana DO at 17:51 EST , Lower Extremity CT 07/22/24 19:24 IMPRESSION: Fracture at the proximal fibula. Electronically Signed: Ang Triana DO at 20:07 EST , Discharge Plan Triage Chief Complaint: Lower Extremity Injury ED Provider: Franklyn Donaldson Dx/Rx/DC Orders Clinical Impression: Closed fracture of fibula, proximal, right Prescriptions: New oxycodone-acetaminophen [Endocet] 5-325 mg tablet 1 tab PO Q6H PRN (Reason: pain) 3 Days Qty: 12 0RF ondansetron 4 mg tablet,disintegrating 4 mg PO Q6H PRN (Reason: nausea and vomiting) Qty: 30 0RF No Action omeprazole 20 MG capsule 20 mg PO DAILY multivitamin Tablet 1 tab PO DAILY acetaminophen 500 mg Tablet 1,000 mg PO Q6H PRN PRN (Reason: Pain Score 1-5) Qty: 0 0RF citalopram 40 mg Tablet 40 mg PO DAILY Qty: 0 0RF vitamin B complex Tablet 1 tab PO DAILY lorazepam 1 mg tablet 1 mg PO Q8H PRN PRN (Reason: Anxiety) amoxicillin-pot clavulanate [Augmentin] 500-125 mg tablet 1 tab PO Q12H 7 Days Qty: 14 0RF levothyroxine 175 mcg tablet 175 mcg PO DAILY Patient Comments: take 1 tablet by mouth every morning ON AN EMPTY STOMACH for THYROID Primary Care Provider: Sai Cobian Referrals: Sai Cobian MD [Primary Care Provider] - Activity Restrictions/Additional Instructions: Continue to use the walker and limit the amount of weight you are putting on the right lower extremity. Follow-up with Dr. Forrest [facility] by the end of the week call them tomorrow for an appointment. Their number is . Use the Percocet and Zofran as needed for severe pain otherwise use Tylenol and ibuprofen for mild to moderate pain. Ice, elevate. Print Language: Amharic Disposition Disposition: Home, Self Care
== END 2024-07-22 22:04 | disposition home or self-care (01) ==
PROVIDERS: Emergency Provider Emergency Medicine; PCP Family Medicine; Visit Provider Emergency Medicine
DX: S82.401D Unspecified fracture of shaft of right fibula, subsequent encounter for closed fracture with routine healing (principal); G80.9 Cerebral palsy, unspecified; F41.9 Anxiety disorder, unspecified; F17.210 Nicotine dependence, cigarettes, uncomplicated; G47.33 Obstructive sleep apnea (adult) (pediatric); Z99.89 Dependence on other enabling machines and devices; X58.XXXD Exposure to other specified factors, subsequent encounter
CPT/HCPCS: 73590; 73700; 99282

== ENCOUNTER 2024-11-05 18:13 | Emergency (ER) | payer MEDICARE, MEDICAID, SELFPAY ==
[2024-11-05 18:14] VITALS: BP 155/99; PULSE 50; RESP 16; TEMP 36.6; O2SAT 99; BMI 38.9
[2024-11-05 20:14] VITALS: BP 125/87; PULSE 57; RESP 18; O2SAT 97
[2024-11-05 20:19] VITALS: BP 125/87; PULSE 55; RESP 18; TEMP 36.7; O2SAT 97
--- NOTE | 2024-11-05 20:19 | ED.VIS.DENTA ---
HPI History of Present Illness Chief Complaint: Dental Narrative Narrative: 59-year-old male past medical history of hypothyroidism, non-smoker, presents with half a day of hard palate/dental pain. He denies any fevers or chills. He is nauseated but has not vomited. He states that he feels a lump behind his front teeth, mainly on the left whenever he runs his tongue across that. This been going on for about a day. Today, he states he ran his finger over the area and brown liquid came out on his finger. He states that the area underneath his nose and behind his front teeth hurts. No exacerbating or alleviating factors. He states that he went to a dentist 6 months ago, and everything appeared normal. [facility] Medical History Alcohol abuse Anxiety History of trigger finger Alcohol abuse Chronic pain Smoker CPAP (continuous positive airway pressure) dependence Sleep apnea Cerebral palsy Home Medications ?Medication ?Instructions ?Recorded ?Last Taken ?Type omeprazole 20 mg capsule,delayed 20 mg PO DAILY GERD 02/05/19 04/23/24 History release multivitamin 1 tab PO DAILY supplement 12/04/20 04/22/24 History acetaminophen 500 mg tablet 1,000 mg (2 x 500 mg) PO Q6H PRN 12/23/20 Unknown Rx PRN Pain Score 1-5 #0 tabs citalopram 40 mg tablet 40 mg PO DAILY #0 tabs 12/23/20 04/23/24 Rx lorazepam 1 mg tablet 1 mg PO Q8H PRN PRN Anxiety 02/27/22 04/22/24 History vitamin B complex 1 tab PO DAILY 02/27/22 04/22/24 History oxycodone-acetaminophen 5 mg-325 1 tab PO Q6H PRN pain 3 days #12 07/22/24 Unknown Rx mg tablet (Endocet) tabs clindamycin HCl 300 mg capsule 300 mg PO Q6H #40 CAPSULES 11/05/24 Unknown Rx (Cleocin HCl) levothyroxine 150 mcg tablet 150 mcg PO DAILY 11/05/24 Unknown History Allergy/AdvReac Type Severity Reaction Status Date / Time No Known Allergies Allergy Verified 11/05/24 18:14 Family History Other Cancer Diabetes Surgical History History of tonsillectomy H/O hand surgery Social History household members: other details: Roommate who does not help him cook or clean. Smoking Status: Current every day smoker tobacco type: cigarettes and e-cigarettes alcohol intake: current alcohol intake frequency: 3 or more drinks per day Alcohol type: hard liquor ROS ROS ED ROS Narrative Review of systems positive for pain on the roof of his mouth with lump behind front teeth. No fevers or chills. Positive nausea but no vomiting. Positive pain underneath nose and behind front teeth. EXAM Physical Exam Narrative Exam Narrative: Afebrile. Vital signs noted. Nontoxic-appearing. Cardiovascular examination reveals bradycardia. Lungs clear to auscultation bilaterally. Abdomen soft nontender with positive bowel sounds. Neurological examination nonfocal and nonlateralizing. Inspection of the mouth does not reveal noticeable dental caries. There is no fluctuance of the gingiva. No fluctuance of the hard palate. Behind his teeth there are a few rugae on the hard palate, but no palpable distention. Airway is patent, no drooling or trismus. No Kedar angina. Const Vital Signs: 11/05/24 18:14 Temperature 98 F Temperature Source Oral Pulse Rate 50 L Respiratory Rate 16 Blood Pressure 155/99 H Blood Pressure Mean 117 Pulse Ox 99 Oxygen Delivery Method Room Air MDM MDM MDM Narrative Medical decision making narrative: Differential diagnosis includes but not limited to gingivitis versus hard palate abscess versus dental abscess. I do not feel he requires any laboratory work or imaging. He is afebrile and hemodynamically stable. He was referred to both ENT and back to his dentist. I do feel antibiotics are indicated. He was started on his first dose of clindamycin, and prescription written to take 4 times a day for 10 days. I stressed the importance of follow-up with either ENT or his dentist within the next 3 to 5 days if not improving. Return instructions to the emergency department were reviewed. Disposition is discharged home in stable condition. History & Record Review Discussion w/independent historian: Patient Discharge Plan Triage Chief Complaint: Dental ED Provider: Salvatore Watkins Dx/Rx/DC Orders Clinical Impression: Hard palate abscess, Mouth pain Instructions: ED Abscess Antibiotic Treatment Only, ED Dental Abscess, ED Pain, Acute, Uncertain Cause Prescriptions: New clindamycin HCl [Cleocin HCl] 300 mg capsule 300 mg PO Q6H Qty: 40 0RF No Action omeprazole 20 MG capsule 20 mg PO DAILY multivitamin Tablet 1 tab PO DAILY acetaminophen 500 mg Tablet 1,000 mg PO Q6H PRN PRN (Reason: Pain Score 1-5) Qty: 0 0RF citalopram 40 mg Tablet 40 mg PO DAILY Qty: 0 0RF vitamin B complex Tablet 1 tab PO DAILY lorazepam 1 mg tablet 1 mg PO Q8H PRN PRN (Reason: Anxiety) oxycodone-acetaminophen [Endocet] 5-325 mg tablet 1 tab PO Q6H PRN (Reason: pain) 3 Days Qty: 12 0RF levothyroxine 150 mcg tablet 150 mcg PO DAILY Primary Care Provider: Sai Cobian Referrals: Sanjay Ferreira MD [Med Staff - Active Staff] - 3-5 Days if not improving Sai Cobian MD [Primary Care Provider] - Activity Restrictions/Additional Instructions: Antibiotics as directed. Return with fever, increased pain or swelling of hard palate, new or worsening symptoms. Follow-up with ENT or a dentist in the next 3 to 5 days if not improving. Print Language: Bol[place]ian Disposition Disposition: Home, Self Care
[2024-11-05] MEDS: Clindamycin HCl 150 MG Capsule 300 MG PO (20:28)
== END 2024-11-05 20:31 | disposition home or self-care (01) ==
PROVIDERS: Emergency Provider Emergency Medicine; PCP Family Medicine; Visit Provider Emergency Medicine
DX: K12.2 Cellulitis and abscess of mouth (principal); F17.210 Nicotine dependence, cigarettes, uncomplicated; K13.79 Other lesions of oral mucosa; G47.30 Sleep apnea, unspecified; Z99.89 Dependence on other enabling machines and devices; F41.9 Anxiety disorder, unspecified; Z79.899 Other long term (current) drug therapy; Z79.890 Hormone replacement therapy; F17.290 Nicotine dependence, other tobacco product, uncomplicated
CPT/HCPCS: 99282

== ENCOUNTER 2025-01-20 22:54 | Emergency (ER) | payer MEDICARE, MEDICAID, SELFPAY ==
[2025-01-20 22:56] VITALS: BP 128/75; PULSE 70; RESP 16; TEMP 37.1; O2SAT 96
[2025-01-20 22:57] VITALS: BMI 37.5
--- OUTSIDE RECORDS SUMMARY | 2025-01-21 00:35 | XMS RPT_ITS | CCD ---
Author Organization [facility] Care Team Providers Care Dental Mechanic Name Role Phone Mathew Cobian MD Primary Care Provider MATHEW COBIAN Primary Care Unavailable AISHA STOREY Referring Unavailable CONSULT, SURGERY - NEURO Consulting Unavail able MATHEW COBIAN Primary Care Unavailable CRISTINA CHAN Admitting Unavailable CRISTINA CHAN Attending Unavailable Unavailable Primary Care Provider UnavailMathew Yanes MD Primary Care Provider Mathew Cobian MD Primary Care Provider Jaswinder BRITTON, Sp Mix Unavailable MATHEW COBIAN Primary Care Unavailable RAPHAEL CALDERON JR Referring Unavaila MATHEW Barth Primary Care Unavailable SUNDAY HUTTON Attending Unavailable GILSON BAR Referring Unavailable GILSON BAR Admitting Unavailable MATHEW COBIAN Primary Care Unavailable GILSON BAR Referring Unavailable GILSON BAR Attending Unavailable Yahaira PHYSICIAN UNDERWRITER.Gypsy BLANKENSHIP Unavailable Daiana PHYSICIAN UNDERWRITERBrian CORNELIUS Unavailable DR MATHEW COBIAN MD Primary Care Physician DR MATHEW COBIAN MD Primary Care Unavailab KAE Escalera DO Attending Unavailable RAPHAEL CALDERON JR Referring Unavaila MATHEW Barth Primary Care Unavailable Dr. Mathew Cobian MD Primary Care Provider Dr. Franklyn Donaldson DO Attending Provider Dr. Franklyn Donaldson DO Emergency Provider Salvatore Watkins MD Emergency Provider Elderbrock, Mathew Primary Care Unavailable Salvatore Watkins Attending Unavailable Elderbrock, Mathew Primary Care Unavailable Franklyn Donaldson Attending Unavailable Franklyn Donaldson Attending Unavailable Elderbrock, Mathew Primary Care Unavailable ELDERBROCK, MATHEW D Primary Care Unavailable DAIANA, BRIAN Attending Unavailable ELDERBROCK, MATHEW D Primary Care Unavailable DAIANA, BRIAN Referring Unavailable ELDERBROCK, MATHEW D Primary Care Unavailable GYPSY SYED Attending Unavailabl e ELDERBROCK, MATHEW D Primary Care Unavailable VETOVITZ, TAMMIE Referring Unavailable VETOVITZ, TAMMIE Attending Unavailable ELDERBROCK, MATHEW D Primary Care Unavailable VETOVITZ, TAMMIE Referring Unavailable ELDERBROCK, MATHEW D Primary Care Unavailable ELDERBROCK, MATHEW D Primary Care Unavailable DAIANA, BRIAN Attending Unavailable ELDERBROCK, MATHEW D Primary Care Unavailable INO ESQUEDA Referring Unavailable ELDERBROCK, MATHEW D Primary Care Unavailable INO ESQUEDA Attending Unavailable ELDERBROCK, MATHEW Barbosa Primary Care Unavailable BETITO, DEVI Y Attending Unavailable ELDERBROCK, MATHEW Ria Primary Care Unavailable DAIANA, BRIAN Attending Unavailable ELDERBROCK, MATHEW D Primary Care Unavailable DAIANA, BRIAN Referring Unavailable ELDERBROCK, MATHEW Ria Primary Care Unavailable ELDERBROCK, MATHEW Barbosa Attending Unavailable ELDERBROCK, MATHEW Barbosa Primary Care Unavailable SELF Referring Unavailable VETOVITZ, TAMMIE Attending Unavailable ELDERBROCK, MATHEW D Primary Care Unavailable VETOVITZ, TAMMIE Referring Unavailable ELDERBROCK, MATHEW D Primary Care Unavailable DAIANA, BRIAN Referring Unavailable GILSON BAR Attending Unavailable ELDERBROCK, MATHEW Barbosa Primary Care Unavailable ELDERBROCK, MATHEW Barbosa Primary Care Unavailable GILSON BAR Attending Unavailable ELDERBROCK, MATHEW D Primary Care Unavailable INO ESQUEDA Attending Unavailable ELDERBROCKMATHEW D Primary Care Unavailable DAIANA, BRIAN Referring Unavailable ELDERBROCK, MATHEW D Primary Care Unavailable RAPHAEL CALDERON JR Attending Unavaila GREYSON Henderson Attending Unavailable ELDERBROCK, MATHEW Barbosa Primary Care Unavailable ELDERBROCK, MATHEW D Primary Care Unavailable ELDERSOFICK, MATHEW D Attending Unavailable ELDERSOFICK, MATHEW D Primary Care Unavailable RAPHAEL CALDERON JR Referring Unavaila ble TAVOCK, MATHEW Barbosa Primary Care Unavailable GYPSY SYED Referring Unavailabl e BETITO, DEVI Y Attending Unavailable ELDERSOFICK, MATHEW D Primary Care Unavailable BRIAN AHMADI Attending Unavailable MATHEW COBIAN Primary Care Unavailable BRIAN AHMADI Attending Unavailable Medications Current Medications Medication Drug Class(es) Dates Sig (Normalized) Sig (Original) acetaminophen 300 mg / codeine phosphate 30 mg oral tablet (2 sources) Opioid Agonist Start: 11-01-2023 End: 11-04-2023 take 1 tablet by mouth every four hours as needed acetaminophen-cod eine (TYLENOL-COD #3) 300-30 mg per tablet Indications: Pain in right testicle , Right groin pain Take 1 tablet by mouth every 4 hours as needed for up to 3 days. 18 tablet 0 11/01/2023 11/04/2023 Active Comment on above: Take 1 tablet by radha th every 4 hours as needed for up to 3 days. acetaminophen 325 mg / oxyCODONE hydrochloride 5 mg oral tablet (10 sources) Opioid Agonist Start: 07-22-2024 take 1 tablet by mouth every six hours as needed for pain Oxycodone-Acetami nophen (Endocet) 5-325 mg tablet Active 1 {tbl} PO EVERY 6 HOURS as needed for pain 12 July 22, 2024 Start: 02-05-2019 End: 02-09-2019 Oxycodone-Acetaminophen 1 TA BLET tablet Discontinued 1 {tbl} PO EVERY 6 HOURS NEEDED as needed for Pain 12 February 05, 2019 February 07, 2019 12:00am February 09, 2019 12:09am Start: 02-05-2019 End: 02-09-2019 take 1 tablet by mouth every six hours as needed Oxycodone-Acetaminophen Discontinued 1 TABLET PO EVERY 6 HOURS NEEDED 12 February 05, 2019 February 09, 2019 12:09am Start: 03-10-2018 End: 03-27-2018 Oxycodone-Acetaminophen 1 TA BLET tablet Discontinued 1 {tbl} PO EVERY 4 HOURS NEEDED as needed for Pain 10 12March 10, 2018 12:00am March 27, 2018 8:18pm Start: 03-10-2018 End: 03-27-2018 take 1 tablet by mouth every four hours as needed Oxycodone-Acetaminophen Discontinued 1 TABLET PO EVERY 4 HOURS NEEDED 10 12March 10, 2018 12:00am March 27, 2018 8:18pm Start: 11-20-2017 End: 11-25-2017 Oxycodone-Acetaminophen 1 TA BLET tablet Discontinued 1 {tbl} PO EVERY 6 HOURS NEEDED as needed for Pain 12 November 20, 2017 12:00am November 25, 2017 10:02am Start: 11-20-2017 End: 11-25-2017 take 1 tablet by mouth every six hours as needed Oxycodone-Acetaminophen Discontinued 1 TABLET PO EVERY 6 HOURS NEEDED 12 November 20, 2017 12:00am November 25, 2017 10:02am [id number] 200 actuat albuterol 0.09 mg/actuat metered dose inhaler (1 source) beta2-Adrenergic Agonist Start: 02-04-2020 take 1 puff(s) by inhalation every four hours as needed Albuterol Sulfate Active 1 - 2 PUFF INHALATION EVERY 4 HOURS NEEDED February 04, 2020 12:00am B Complex Vitamins capsule (1 source) take 1 capsule by mouth once daily B Complex Vitamins capsule Take 1 capsule by mouth daily. Active baclofen 10 mg oral tablet (1 source) gamma-Aminobutyric Acid-ergic Agonist Start: 11-22-2020 take 10 mg by mouth three times daily as needed Baclofen Active 10 MG PO 3 TIMES DAILY NEEDED November 22, 2020 12:00am calcium carbonate 500 mg chewable tablet (1 source) Start: 11-01-2018 take 500 mg by mouth every six hours as needed Calcium Carbonate Active 500 MG PO EVERY 6 HOURS NEEDED November 01, 2018 12:00am carbamide peroxide 65 mg/ml otic solution (2 sources) Start: 09-14-2023 End: 09-19-2023 carbamide peroxide (DEBROX) 6.5 % otic solution Indications: Bilateral impacted cerumen Use 5 Drops in both ears two times a day for 5 days. 15 mL 0 09/14/2023 09/19/2023 Active Comment on above: Use 5 Drops in both ears two times a day for 5 days. cefdinir 300 mg oral capsule (7 sources) Cephalosporin Antibacterial Start: 01-14-2025 End: 01-21-2025 take 1 capsule by mouth twice daily cefdinir (OMNICEF) 300 mg capsule Indications: Diverticulitis Take 1 capsule by mouth two times a day for 7 days. 14 capsule 01/14/2025 01/21/2025 Active Start: 04-30-2024 End: 05-07-2024 take 1 capsule by mouth twice daily cefdinir (OMNICEF) 300 mg capsule Indications: Diverticulitis Take 1 capsule by mouth two times a day for 7 days. 14 capsule 04/30/2024 05/03/2024 Discontinued (Course of therapy completed) cholecalciferol, vitamin D3, (VITAMIN D3 ORAL) (20 sources) take 2000 ug by mouth once daily cholecalciferol, vitamin D3, (VITAMIN D3 ORAL) Take 2,000 mcg by mouth once daily. Suspended take 2000 ug by mouth once daily cholecalciferol, vitamin D3, (VITAMIN D3 ORAL) Take 2,000 mcg by mouth once daily. Active take 2000 ug by mouth once daily cholecalciferol, vitamin D3, (VITAMIN D3 ORAL) Take 2,000 mcg by mouth once daily. 0 Active Comment on above: Take 2,000 mcg by mo uth once daily. citalopram 40 mg oral tablet (20 sources) Serotonin Reuptake Inhibitor Start: 12-04-2020 End: 12-23-2020 Citalopram 20 mg tablet Discontinued 20 mg PO DAILY December 04, 2020 7:05pm December 23, 2020 7:26pm for 1 week, then stop Start: 11-18-2020 End: 08-06-2024 take 1 tablet by mouth once daily citalopram (CELEXA) 40 mg tablet Take 1 tablet by mouth once daily. 90 tablet 3 08/06/2024 Active Start: 11-02-2018 End: 12-04-2020 take 2 tablets by mouth once daily Citalopram 20 MG tablet Discontinued 40 mg PO DAILY November 02, 2018 3:08pm December 04, 2020 3:16pm Start: 11-02-2018 End: 12-04-2020 take 40 mg by mouth once daily Citalopram Discontinued 40 MG PO DAILY November 02, 2018 3:08pm December 04, 2020 3:16pm Start: 11-01-2018 End: 11-02-2018 take 1 tablet by mouth once daily Citalopram 20 MG tablet Discontinued 20 mg PO DAILY November 01, 2018 12:00am November 02, 2018 3:08pm take 4 tablets by mo uth once daily Citalopram 10 MG tablet Take 4 tablets by mouth daily. Active Comment on above: Take 40 mg by mouth once daily. Take 1 tablet by radha th once daily. clindamycin 300 mg oral capsule (1 source) Lincosamide Antibacterial Start: 5 take 1 capsule by mouth every six hours Clindamycin Hcl (Cleocin Hcl) 300 mg capsule Active 300 mg PO EVERY 6 HOURS 40 November 05, 2024 12:00am CPAP (20 sources) Start: 2 CPAP Indications: Sleep apnea, unspecified type Initiate CPAP @ 7 cm of water with humidification. Mask (per patient preference) optional chin strap (if indicated) , filters, tubing, humidifier and lifetime supplies. 1 Each 12/23/2021 Suspended Start: 12-23-2021 CPAP Indicatio ns: Sleep apnea, unspecified type Initiate CPAP @ 7 cm of water with humidification. Mask (per patient preference) optional chin strap (if indicated) , filters, tubing, humidifier and lifetime supplies. 1 Each 12/23/2021 Active Start: 12-23-2021 CPAP Indicatio ns: Sleep apnea, unspecified type Initiate CPAP @ 7 cm of water with humidification. Mask (per patient preference) optional chin strap (if indicated) , filters, tubing, humidifier and lifetime supplies. 1 Each 0 12/23/2021 Active Start: 08-26-2021 CPAP Indicatio ns: JODEE (obstructive sleep apnea) Mask (per patient preference) optional chin strap (if indicated) , filters, tubing, humidifier and lifetime supplies. 1 Each 0 08/26/2021 Active Start: 10-30-2019 End: 07-14-2023 CPAP Initiate CPAP @ 7 cm of water with humidification. Mask (per patient preference) optional chin strap (if indicated) , filters, tubing, humidifier and lifetime supplies. 1 Device 10/30/2019 07/14/2023 Discontinued (Duplicate Entry) Start: 10-30-2019 CPAP Initiate CPAP @ 7 cm of water with humidification. Mask (per patient preference) optional chin strap (if indicated) , filters, tubing, humidifier and lifetime supplies. 1 Device 0 10/30/2019 Active Start: 08-30-2017 End: 08-25-2021 CPAP Indications: JODEE (obstr uctive sleep apnea) Mask (per patient preference) optional chin strap (if indicated) , filters, tubing, humidifier and lifetime supplies. 1 Device 08/30/2017 08/25/2021 Discontinued Comment on above: Initiate CPAP @ 7 cm of water with humidification. Mask (per patient preference) optional chin strap (if indicated) , filters, tubing, humidifier and lifetime supplies. Mask (per patient pr eference) optional chin strap (if indicated) , filters, tubing, humidifier and lifetime supplies. doxycycline hyclate 100 mg oral tablet (2 sources) Tetracycline-class Drug Start: 024 End: 024 take 1 tablet by mouth twice daily doxycycline (VIBRA-TABS) 100 mg tablet Indications: Sinobronchitis Take 1 tablet by mouth two times a day for 10 days. 20 tablet 0 08/15/2023 08/25/2023 Active Comment on above: Take 1 tablet by radha th two times a day for 10 days. fexofenadine hydrochloride 180 mg oral tablet (5 sources) Histamine-1 Receptor Antagonist Start: 025 take 1 tablet by mouth once daily fexofenadine (MARY ALLERGY) 180 mg tablet Take 1 tablet by mouth once daily. 30 tablet 5 01/10/2025 Active fluticasone propionate 0.05 mg/actuat metered dose nasal spray (20 sources) Corticosteroid Start: 025 take 1 spray(s) nasal route once daily fluticasone (FLONASE ALLERGY RELIEF) 50 mcg/actuation nasal spray Use 1 spray in each nostril once daily. 11.1 mL 1 12/25/2024 Active Start: 12-14-2023 End: 12-13-2024 take 2 spray(s) by mouth twice daily fluticasone (FLONASE) 50 mcg/actuation nasal spray Indications: Sensation of fullness in both ears Use 2 Sprays in each nostril two times a day. Rinse mouth after use. 18.2 g 3 12/14/2023 04/30/2024 Discontinued (Course of therapy completed) Start: 12-04-2020 End: 12-04-2020 Fluticasone Propionate 50 mcg/actuation Hamer,Suspension Discontinued 1 NMA NASAL TWICE A DAY December 04, 2020 12:00am December 04, 2020 7:05pm Start: 12-04-2020 End: 12-04-2020 Fluticasone Propionate Disco ntinued 1 SPRAY NASAL TWICE A DAY December 04, 2020 12:00am December 04, 2020 7:05pm glycerin 2 mg/ml / hypromellose 2 mg/ml / polyethylene glycol 400 10 mg/ml ophthalmic solution (1 source) Non-Standardized Chemical Allergen Start: 12-23-2020 Peg 249-Icagrjhroqwn-Xsrarnac (Artificial Tears(Ff-Ilqr-Cxbv)) 1-0.2-0.2 % Drops Active 1 DRP EACH EYE Q1H 0 December 23, 2020 12:00am hydrOXYzine pamoate 25 mg oral capsule (2 sources) Antihistamine Start: 12-04-2020 take 50 mg by mouth every four hours as needed Hydroxyzine Pamoate Active 50 MG PO EVERY 4 HOURS NEEDED December 04, 2020 12:00am Start: 05-20-2019 End: 04-16-2021 take 1 capsule by mouth every eight hours as needed hydrOXYzine pamoate (VISTARIL) 25 mg capsule Take 1 capsule by mouth three times daily as needed for Anxiety. 30 capsule 1 05/20/2019 04/16/2021 Discontinued ibuprofen 400 mg oral tablet (1 source) Nonsteroidal Anti-inflammatory Drug take 1 tablet by mouth every six hours as needed Ibuprofen 400 MG tablet Take 1 tablet by mouth every 6 hours as needed for Mild Pain. Active iv contrast (will be provided with radiology test) (20 sources) Start: 03-12-20 End: 03-13-20 iv contrast (will be provided with radiology test) MRI Prostate Inject, intravenously, once for 1 dose. No IV access, insert saline lock prior to the beginning of sedation, infusion, injection of imaging exam. Discontinue saline lock post exam. If Pt. has a central line or IVAD, may access for administration according to line specific nursing protocol. Once exam is complete flush line and de-access according to line specific nursing protocol in the MR contrast administration guidelines link. 1 Each 03/12/2024 03/13/2024 Active Start: 07-13-2021 End: 10-17-2023 iv contrast (will be provide d with radiology test) MRI Prostate Inject, intravenously, once for 1 dose. No IV access, insert saline lock prior to the beginning of sedation, infusion, injection of imaging exam. Discontinue saline lock post exam. If Pt. has a central line or IVAD, may access for administration according to line specific nursing protocol. Once exam is complete flush line and de-access according to line specific nursing protocol in the MR contrast administration guidelines link. 1 Each 07/13/2021 10/17/2023 Discontinued Start: 07-13-2021 End: 10-17-2023 iv contrast (will be provide d with radiology test) MRI Prostate Inject, intravenously, once for 1 dose. No IV access, insert saline lock prior to the beginning of sedation, infusion, injection of imaging exam. Discontinue saline lock post exam. If Pt. has a central line or IVAD, may access for administration according to line specific nursing protocol. Once exam is complete flush line and de-access according to line specific nursing protocol in the MR contrast administration guidelines link. 1 Each 0 07/13/2021 10/17/2023 Discontinued Start: 07-13-2021 iv contrast (w ill be provided with radiology test) MRI Prostate Inject, intravenously, once for 1 dose. No IV access, insert saline lock prior to the beginning of sedation, infusion, injection of imaging exam. Discontinue saline lock post exam. If Pt. has a central line or IVAD, may access for administration according to line specific nursing protocol. Once exam is complete flush line and de-access according to line specific nursing protocol in the MR contrast administration guidelines link. 1 Each 0 07/13/2021 Active Comment on above: MRI Prostate Inject, intravenously, once for 1 dose. No IV access, insert saline lock prior to the beginning of sedation, infusion, injection of imaging exam. Discontinue saline lock post exam. If Pt. has a central line or IVAD, may access for administration according to line specific nursing protocol. Once exam is complete flush line and de-access according to line specific nursing protocol in the MR contrast administration guidelines link. levothyroxine sodium 0.15 mg oral tablet (20 sources) l-Thyroxine Start: 04-14-20 End: 04-24-20 24 take 1 tablet by mouth once daily levothyroxine (SYNTHROID) 150 mcg tablet Indications: Hypothyroidism, unspecified type Take 1 tablet by mouth once daily. 90 tablet 3 04/25/2024 Active Start: 09-29-2023 End: 09-29-2023 take 175 ug by mouth once daily before breakfast 175 mcg, Oral, DAILY BEFORE BREAKFAST, First dose (after last modification) on Mon09/29/23 at 0600, Until Discontinued Start: 09-27-2023 End: 09-28-2023 take 175 ug by mouth once daily 175 mcg, Oral, DAILY, First dose on Mon09/27/23 at 0900, Until Discontinued Start: 09-15-2023 End: 12-06-2024 take 1 tablet by mouth once daily Levothyroxine 175 mc g tablet Discontinued 175 ug PO DAILY September 26, 2023 1:00am November 05, 2024 8:17pm Start: 07-14-2023 End: 09-15-2023 take 1 tablet by mouth once daily levothyroxine (SYNTH ROID) 150 mcg tablet take 1 tablet by mouth once daily on an empty stomach 90 tablet 1 07/14/2023 09/15/2023 Discontinued Start: 12-20-2022 End: 06-14-2023 take 1 tablet by mouth once daily levothyroxine (SYNTH ROID) 150 mcg tablet take 1 tablet by mouth once daily on an empty stomach 90 tablet 1 06/14/2023 Active Start: 06-10-2022 End: 12-20-2022 take 1 tablet by mouth once daily for thyroid dysfunction levothyroxine (SYNTHROID) 175 mcg tablet Take 1 tablet by mouth once daily. Take on empty stomach. For Thyroid. 90 tablet 3 06/10/2022 12/20/2022 Discontinued Start: 04-19-2021 End: 06-10-2022 take 1 tablet by mouth once daily for thyroid dysfunction levothyroxine (SYNTHROID) 200 mcg tablet Take 1 tablet by mouth once daily. Take on empty stomach. For Thyroid. 90 tablet 1 12/13/2021 06/10/2022 Discontinued Start: 12-23-2020 End: 09-26-2023 take 3 tablets by mouth once daily Levothyroxine 75 mcg Tablet Discontinued 225 ug PO DAILY@0600 0 December 23, 2020 12:00am September 26, 2023 5:05pm Start: 12-23-2020 take 225 ug by mouth once allison y Levothyroxine Active 225 MCG PO DAILY@0600 0 December 23, 2020 12:00am Start: 12-04-2020 End: 12-23-2020 take 2 tablets by mouth once daily Levothyroxine 100 mcg tablet Discontinued 200 ug PO DAILY@599December 04, 2020 7:05pm December 23, 2020 7:26pm Start: 12-04-2020 End: 12-23-2020 take 200 ug by mouth once daily Levothyroxine Disconti nued 200 MCG PO DAILY@599December 04, 2020 7:05pm December 23, 2020 7:26pm Start: 05-08-2020 End: 04-16-2021 take 1 tablet by mouth once daily for thyroid dysfunction levothyroxine (SYNTHROID) 200 mcg tablet Take 1 tablet by mouth once daily. Take on empty stomach. For Thyroid. 90 tablet 3 05/08/2020 04/16/2021 Discontinued Start: 05-21-2016 End: 12-04-2020 Levothyroxine 175 MCG tablet Discontinued 200 ug PO DAILY May 21, 2016 12:00am December 04, 2020 3:17pm Start: 05-21-2016 End: 12-04-2020 take 200 ug by mouth once daily Levothyroxine Disconti nued 200 MCG PO DAILY May 21, 2016 12:00am December 04, 2020 3:17pm Comment on above: Take 1 tablet by radha th once daily. Take on empty stomach. For Thyroid. take 1 tablet by radha th once daily on an empty stomach loratadine 10 mg oral tablet (9 sources) Start: 12-25-2024 End: 02-23-2025 take 1 tablet by mouth once daily as needed loratadine (CLARITIN) 10 mg tablet Take 1 tablet by mouth once daily as needed (for allergy symptoms). 30 tablet 1 12/25/2024 02/23/2025 Active Start: 10-16-2018 End: 10-16-2018 take 1 tablet by mouth once daily Loratadine (Claritin) 10 MG tablet Discontinued 10 mg PO DAILY October 16, 2018 12:00am October 16, 2018 6:49pm LORazepam 0.5 mg oral tablet (20 sources) Benzodiazepine Start: 07-12-2024 End: 08-11-2024 take 1-2 tablets by mouth once daily as needed LORazepam (ATIVAN) 0.5 mg Indications: Anxiety Take 1-2 tablets by mouth once daily as needed for up to 30 days. 60 tablet 07/12/2024 08/11/2024 Active Start: 09-27-2023 End: 09-27-2023 take 1 dose by mouth once 2 mg, Oral, ONCE, 1 dose, On Mon09/27/23 at 0030 Start: 07-14-2023 End: 03-05-2024 take 0.5 mg by mouth every twenty-four hours as needed for anxiety and anxiety LORazepam (ATIVAN) 0.5 mg Indications: Anxiety Take 1 tablet by mouth at bedtime as needed for up to 90 days. 60 tablet 0 12/06/2023 03/05/2024 Active Start: 12-20-2022 End: 01-19-2023 take 1-2 tablets by mouth once daily as needed LORazepam (ATIVAN) 0.5 mg Indications: Anxiety Take 1-2 tablets by mouth once daily as needed for up to 30 days. 60 tablet 0 12/20/2022 01/19/2023 Active Start: 03-03-2022 End: 04-02-2022 take 1-2 tablets by mouth once daily as needed LORazepam (ATIVAN) 0.5 mg Indications: Prostate cancer (HCC) Take 1-2 tablets by mouth once daily as needed for up to 30 days. 60 tablet 0 03/03/2022 04/02/2022 Active Start: 02-27-2022 take 1 tablet by radha th every eight hours as needed for anxiety Lorazepam 1 mg tablet Active 1 mg PO EVERY 8 HOURS NEEDED as needed for Anxiety February 27, 2022 3:58pm Start: 12-23-2020 End: 02-27-2022 take 1 tablet by mouth every four hours as needed for anxiety Lorazepam 1 mg Tablet Discontinued 1 mg PO EVERY 4 HOURS NEEDED as needed for Anxiety 42 December 23, 2020 12:00am February 27, 2022 3:58pm Start: 11-22-2020 End: 12-04-2020 take 1 tablet by mouth once daily as needed for anxiety Lorazepam (Ativan) 1 mg tablet Discontinued 1 mg PO DAILY as needed for anxiety November 22, 2020 12:00am December 04, 2020 3:16pm Start: 11-25-2017 End: 11-01-2018 take 1 tablet by mouth twice daily as needed for anxiety Lorazepam 1 MG tablet Discontinued 1 mg PO TWICE A DAY as needed for Anxiety November 25, 2017 10:01am November 01, 2018 3:59pm Start: 05-21-2016 End: 11-25-2017 take 1 tablet by mouth three times daily as needed for anxiety Lorazepam 1 MG tablet Discontinued 1 mg PO 3 TIMES DAILY NEEDED as needed for Anxiety May 21, 2016 12:00am November 25, 2017 10:02am Comment on above: Take 1-2 tablets by mouth once daily as needed for up to 30 days. Take 0.5 mg by mouth at bedtime as needed. Take 1 tablet by radha th at bedtime as needed for up to 90 days. metroNIDAZOLE 500 mg oral tablet (7 sources) Nitroimidazole Antimicrobial Start: 01-15-20 End: 01-22-20 take 1 tablet by mouth three times daily metroNIDAZOLE (FLAGYL) 500 mg tablet Indications: Diverticulitis Take 1 tablet by mouth three times a day for 7 days. 21 tablet 01/14/2025 01/21/2025 Active Start: 04-30-2024 End: 05-07-2024 take 1 tablet by mouth every eight hours metroNIDAZOLE (FLAGYL) 500 mg tablet Indications: Diverticulitis Take 1 tablet by mouth every 8 hours for 7 days. 21 tablet 04/30/2024 05/03/2024 Discontinued (Course of therapy completed) multivit-min/folic/vit K/lyc op (MEN'S 50 PLUS MULTIVITAMIN ORAL) (20 sources) take 1 tablet by mouth once daily multivit-min/folic/vit K/lycop (MEN'S 50 PLUS MULTIVITAMIN ORAL) Take 1 tablet by mouth once daily. Suspended take 1 tablet by mouth once allison y multivit-min/folic/vit K/lycop (MEN'S 50 PLUS MULTIVITAMIN ORAL) Take 1 tablet by mouth once daily. Active take 1 tablet by mouth once allison y multivit-min/folic/vit K/lycop (MEN'S 50 PLUS MULTIVITAMIN ORAL) Take 1 tablet by mouth once daily. 0 Active multivit-min/fol ic/vit K/lycop (MEN'S 50 PLUS MULTIVITAMIN ORAL) Take by mouth once daily. 0 Active Comment on above: Take by mouth once d aily. Take 1 tablet by radha th once daily. Multivitamin preparation (4 sources) Start: 12-04-2020 take 1 tablet by mouth once daily Multivitamin Active 1 TABLET PO DAILY December 04, 2020 7:05pm Start: 12-04-2020 End: 12-04-2020 take 1 tablet by mouth once daily Multivitamin Discontinued 1 TABLET PO DAILY December 04, 2020 12:00am December 04, 2020 7:05pm Multivitamin tablet (2 sources) Start: 12-04-2020 Multivitamin t ablet Active 1 {tbl} PO DAILY December 04, 2020 7:05pm Start: 12-04-2020 End: 12-04-2020 Multivitamin tablet Disconti nued 1 {tbl} PO DAILY December 04, 2020 12:00am December 04, 2020 7:05pm omeprazole 20 mg delayed release oral capsule (20 sources) Proton Pump Inhibitor Start: 02-05-2019 End: 01-29-2024 take 1 capsule by mouth once daily omeprazole (PRILOSEC) 20 mg capsule Indications: GERD without esophagitis take 1 capsule by mouth once daily 90 capsule 3 01/29/2024 Active Start: 12-05-2017 End: 10-16-2018 take 1 capsule by mouth once daily Omeprazole 20 MG capsule Discontinued 20 mg PO DAILY@0800 March 10, 2018 11:32am October 16, 2018 3:49pm Comment on above: Take 1 capsule by [facility] once daily. take 1 capsule by [facility] once daily sulfamethoxazole 800 mg / trimethoprim 160 mg oral tablet (3 sources) Dihydrofolate Reductase Inhibitor Antibacterial, Sulfonamide Antimicrobial Start: 023 End: 023 take 1 tablet by mouth twice daily sulfamethoxazole-tri methoprim (BACTRIM DS) 800-160 mg per tablet Indications: Prostatitis, acute Take 1 tablet by mouth twice daily for 7 days. 14 tablet 0 04/12/2023 04/19/2023 Active Comment on above: Take 1 tablet by [facility] twice daily for 7 days. triamcinolone acetonide 0.25 mg/ml topical cream (1 source) Corticosteroid Start: 024 End: triamcinolone (KENALOG) 0.025 % cream Apply to affected area two times a day for 7 days. 15 g 0 02/17/2024 02/24/2024 Active Vitamin B Complex (1 source) Start: take 1 tablet by mouth once daily Vitamin B Complex Active 1 TABLET PO DAILY February 27, 2022 12:00am vitamin b complex capsule (20 sources) take 1 capsule by mouth once daily vitamin b complex capsule Take 1 capsule by mouth once daily. Suspended take 1 capsule by mouth once pretty ly vitamin b complex capsule Take 1 capsule by mouth once daily. Active take 1 capsule by mouth once pretty ly vitamin b complex capsule Take 1 capsule by mouth once daily. 0 Active Comment on above: Take 1 capsule by mo [facility] once daily. Vitamin B Complex Tablet (1 source) Start: 02-27-2022 Vitamin B Complex Tablet Active 1 {tbl} PO DAILY February 27, 2022 12:00am Completed/Discontinued Medications Medication Drug Class(es) Dates Sig (Normalized) Sig (Original) Acetaminophen (14 sources) Start: 09-27-2023 End: 09-29-2023 take 1 tablet by mouth every four hours as needed Acetaminophen (TYLENOL) tablet 325 mg Start: 12-23-2020 take 2 tablets by mo [facility] every six hours as needed for pain Acetaminophen 500 mg Tablet Active 1000 mg PO EVERY 6 HOURS NEEDED as needed for Pain Score 1-5 0 December 23, 2020 12:00am Start: 12-23-2020 take 1000 mg by mout every six hours as needed Acetaminophen Active 1000 MG PO EVERY 6 HOURS NEEDED 0 December 23, 2020 12:00am Start: 03-10-2018 End: 03-27-2018 Acetaminophen (Tylenol) 325 MG tablet Discontinued 650 mg PO EVERY 6 HOURS NEEDED as needed for Mild Pain (scale 0-3)/T>100.7 March 10, 2018 12:00am March 27, 2018 8:16pm Start: 03-10-2018 End: 03-27-2018 take 2 tablets by mouth every six hours as needed Acetaminophen (Tylenol) 325 MG tablet Discontinued 650 MG PO EVERY 6 HOURS NEEDED March 10, 2018 12:00am March 27, 2018 8:16pm Start: 12-05-2017 End: 03-10-2018 take 2 tablets by mouth every eight hours as needed for pain Acetaminophen 500 MG tablet Discontinued 1000 mg PO EVERY 8 HOURS NEEDED as needed for Mild Pain (1-3/10) December 05, 2017 12:00am March 10, 2018 7:36am Start: 12-05-2017 End: 03-10-2018 take 1000 mg by mouth every eight hours as needed Acetaminophen Discontinued 1000 MG PO EVERY 8 HOURS NEEDED December 05, 2017 12:00am March 10, 2018 7:36am Start: 11-25-2017 End: 12-05-2017 take 2 tablets by mouth every six hours as needed for pain Acetaminophen (Tylenol) 325 MG tablet Discontinued 650 mg PO EVERY 6 HOURS NEEDED as needed for Fever, headache, pain November 25, 2017 12:00am December 05, 2017 10:27pm take 1 tablet by radha th every four hours Acetaminophen 325 MG tablet Take 1 tablet by mouth every 4 hours. Active aluminum hydroxide 80 mg/ml / magnesium hydroxide 80 mg/ml / simethicone 8 mg/ml oral suspension (3 sources) Start: 03-10-2018 End: 03-27-2018 take 1 mL by mouth every six hours as needed Alum-Mag Hydroxide-Simeth (Mag-Al Plus Extra Strength) 30 ML Udc Discontinued 30 mL PO EVERY 6 HOURS NEEDED as needed for Gastric burning March 10, 2018 12:00am March 27, 2018 8:18pm Start: 03-10-2018 End: 03-27-2018 take 1 mL by mouth every six hours as needed Alum-Mag Hydroxide-Simeth (Mag-Al Plus Extra Strength) 30 ML Udc Discontinued 30 ML PO EVERY 6 HOURS NEEDED March 10, 2018 12:00am March 27, 2018 8:18pm amoxicillin 500 mg / clavulanate 125 mg oral tablet (1 source) Penicillin-class Antibacterial Start: 04-23-2024 End: 11-05-2024 Amoxicillin-Pot Clavulanate (Augmentin) 500-125 mg tablet Discontinued 1 {tbl} PO Q12H 14 April 23, 2024 12:00am November 05, 2024 8:17pm B Complex capsule 1 capsule (1 source) Start: 09-27-2023 End: 09-29-2023 take 1 capsule by mouth once daily 1 capsule, Oral, DAILY, First dose on Mon09/27/23 at 0900, Until Discontinued benzonatate 100 mg oral capsule (8 sources) Non-narcotic Antitussive Start: 08-15-2023 End: 10-17-2023 take 2 capsules by mouth every eight hours as needed for cough and cough benzonatate (TESSALON PERLE) 100 mg capsule Indications: Subacute cough Take 2 capsules by mouth three times a day as needed. 40 capsule 0 08/15/2023 10/17/2023 Discontinued Comment on above: Take 2 capsules by m out three times a day as needed. 24 hr buPROPion hydrochloride 150 mg extended release oral tablet (14 sources) Aminoketone Start: 03-15-2024 End: 04-12-2024 take 1 tablet by mouth once daily buPROPion XL (WELLBUTRIN XL) 150 mg 24 hr tablet Indications: Recurrent major depressive disorder, remission status unspecified (HCC) , MANNY (generalized anxiety disorder) Take 1 tablet by mouth once daily. 30 tablet 2 03/15/2024 04/12/2024 Discontinued (Course of therapy completed) Start: 12-20-2022 take 1 tablet by radha once daily buPROPion XL (WELLBUTRIN XL) 150 mg 24 hr tablet Indications: Recurrent major depressive disorder, remission status unspecified (HCC) Take 1 tablet by mouth once daily. 30 tablet 3 12/20/2022 Active Comment on above: Take 1 tablet by radha once daily. cephalexin 500 mg oral capsule (1 source) Cephalosporin Antibacterial Start: 09-27-2023 End: 09-28-2023 500 mg, Oral, EVERY 12 HOURS, 14 doses, First dose on Mon09/27/23 at 1000, Last dose on Mon10/03/23 at 2100 cholecalciferol 0.125 mg oral tablet (20 sources) Vitamin D Start: 02-27-2022 End: 09-26-2023 Cholecalciferol (Vitamin D3) (Vitamin D3) 125 mcg (5,000 unit) Tablet Discontinued ug PO EVERY WEEK February 27, 2022 12:00am September 26, 2023 5:04pm Start: 02-27-2022 take 1 tablet by radha th every week Cholecalciferol (Vitamin D3) (Vitamin D3) 125 mcg (5,000 unit) Tablet Active MCG PO EVERY WEEK February 27, 2022 12:00am Start: 05-21-2021 End: 10-17-2023 take 1 capsule by mouth every week cholecalciferol, Vitamin D3, (VITAMIN D3) 1,250 mcg (50,000 unit) cap capsule Indications: Vitamin D deficiency Take 1 capsule by mouth one time a week. 12 capsule 2 12/20/2022 10/17/2023 Discontinued Comment on above: Take 1 capsule by [facility] one time a week. cyclobenzaprine hydrochloride 10 mg oral tablet (4 sources) Muscle Relaxant Start: 02-23-20 End: 04-16-20 take 1 tablet by mouth every eight hours as needed cyclobenzaprine (FLEXERIL) 10 mg tablet Take 1 tablet by mouth three times daily as needed for muscle spasm. 30 tablet 1 02/22/2021 04/16/2021 Discontinued Start: 12-05-2017 End: 03-27-2018 take 1 tablet by mouth three times daily as needed for muscle spasms Cyclobenzaprine 10 MG tablet Discontinued 10 mg PO 3 TIMES DAILY NEEDED as needed for Muscle Spasm December 05, 2017 12:00am March 27, 2018 8:17pm diclofenac sodium 50 mg delayed release oral tablet (3 sources) Nonsteroidal Anti-inflammatory Drug Start: 12-05-2017 End: 03-27-2018 take 1 tablet by mouth twice daily as needed for pain Diclofenac Sodium 50 MG tablet Discontinued 50 mg PO TWICE A DAY as needed for Pain December 05, 2017 12:00am March 27, 2018 8:18pm docosahexaenoic acid/epa (FISH OIL CONCENTRATE ORAL) (6 sources) End: 10-17-2023 take 1 capsule by mouth once daily docosahexaenoic acid/epa (FISH OIL CONCENTRATE ORAL) Take 1 capsule by mouth once daily. 0 10/17/2023 Discontinued take 1 capsule by mouth once pretty ly docosahexaenoic acid/epa (FISH OIL CONCENTRATE ORAL) Take 1 capsule by mouth once daily. 0 Active Comment on above: Take 1 capsule by [facility] once daily. Enoxaparin Sodium (LOVENOX) injection 40 mg (2 sources) Start: 09-29-2023 End: 09-29-2023 Enoxaparin Sodium (LOVENOX) injection 40 mg Start: 09-27-2023 End: 09-28-2023 inject 40 mg by subcutaneous injection once daily 40 mg, Subcutaneous, DAILY, First dose on Mon09/27/23 at 1100, Until Discontinued, Indications: DVT/PE prophylaxis Gadopiclenol SOLN 1-25 mL (1 source) Start: 09-27-2023 End: 09-27-2023 1-25 mL, Intravenous, ONCE, 1 dose, On Mon09/27/23 at 0145 2 ml glycopyrrolate 0.2 mg/m l injection (1 source) Start: 05-13-2024 End: 05-13-2024 0.2 mg, INTRAVENOUS, ONCE, 1 dose, On Mon05/13/24 at 1030, Recovery or Phase I (only) Start: 05-13-2024 End: 05-13-2024 0.2 mg, INTRAVENOUS, ONCE, 1 dose, On Mon05/13/24 at 1030, Recovery or Phase I (only) heparin sodium, porcine 5000 unt/ml injectable solution (6 sources) Unfractionated Heparin, Anti-coagulant Start: 03-10-2018 End: 03-27-2018 Heparin (Porcine) 5,000 UNIT/ML Vial Discontinued 5000 U SC EVERY 12 HOURS March 10, 2018 11:32am March 27, 2018 8:18pm hydrALAZINE (APRESOLINE) injection 10 mg (2 sources) Start: 09-27-2023 End: 09-29-2023 take 10 mg intravenously every hour as needed hydrALAZINE (APRESOLINE) injection 10 mg Start: 09-27-2023 End: 09-29-2023 take 10 mg intravenously every hour as needed hydrALAZINE (APRESOLINE) injection 10 mg 2 ml ketorolac tromethamine 30 mg/ml injection (1 source) Nonsteroidal Anti-inflammatory Drug, Cyclooxygenase Inhibitor Start: 11-01-2023 End: 11-01-2023 keTORolac 60 mg injection (Toradol) Labetalol (NORMODYNE) injection 10 mg (1 source) Start: 09-27-2023 End: 09-29-2023 take 10 mg intravenously every hour as needed Labetalol (NORMODYNE) injection 10 mg lidocaine 0.04 mg/mg medicated patch (7 sources) Antiarrhythmic, Amide Local Anesthetic Start: 09-26-2023 End: 09-29-2023 apply 1 dose transdermal route every twenty-four hours 1 patch, Transdermal, Administer over 12 Hours, EVERY 24 HOURS, First dose on Mon09/26/23 at 2245, Until Discontinued, Apply to back . Start: 11-25-2017 End: 12-05-2017 Lidocaine 1 PATCH patch Discontinued 1 NMA TOPICAL DAILY November 25, 2017 2:25pm December 05, 2017 10:28pm Please contact the information source for Protocol details. Start: 11-25-2017 End: 12-05-2017 apply 1 dose topically once daily Lidocaine Discontinued 1 PATCH TOPICAL DAILY November 25, 2017 2:25pm December 05, 2017 10:28pm magnesium hydroxide 80 mg/ml oral suspension (9 sources) Start: 10-16-2018 End: 11-01-2018 take 1 mL by mouth once daily as needed for constipation Magnesium Hydroxide 30 ML Udc Discontinued 30 mL PO DAILY NEEDED as needed for Constipation October 16, 2018 12:00am November 01, 2018 3:59pm Start: 10-16-2018 End: 11-01-2018 take 1 mL by mouth once daily as needed Magnesium Hydroxide Discontinued 30 ML PO DAILY NEEDED October 16, 2018 12:00am November 01, 2018 3:59pm Start: 03-10-2018 End: 03-27-2018 take 1 mL by mouth once daily as needed for constipation Magnesium Hydroxide 30 ML Udc Discontinued 30 mL PO DAILY NEEDED as needed for Constipation March 10, 2018 11:32am March 27, 2018 8:18pm Start: 03-10-2018 End: 03-27-2018 take 1 mL by mouth once daily as needed Magnesium Hydroxide Discontinued 30 ML PO DAILY NEEDED March 10, 2018 11:32am March 27, 2018 8:18pm meclizine hydrochloride 25 mg oral tablet (20 sources) Antiemetic Start: 09-26-2023 End: 04-30-2024 take 1 tablet by mouth every eight hours as needed meclizine (ANTIVERT) 25 mg tab Take 1 tablet by mouth three times a day as needed (dizziness) for up to 12 doses. 12 tablet 09/26/2023 04/30/2024 Discontinued (Course of therapy completed) Start: 09-26-2023 take 1 tablet by radha th every eight hours as needed for dizziness Meclizine 25 MG tablet Take 1 tablet by mouth Every 8 hours as needed for Dizziness. 09/26/2023 Active Comment on above: Take 1 tablet by radha th three times a day as needed (dizziness) for up to 12 doses. ondansetron 4 mg disintegrating oral tablet (1 source) Serotonin-3 Receptor Antagonist Start: End: take 1 tablet by mouth every six hours as needed for nausea and vomiting Ondansetron 4 mg tablet,disintegrati ng Discontinued 4 mg PO EVERY 6 HOURS as needed for nausea and vomiting July 22, 2024 1:00am November 05, 2024 8:17pm Ondansetron 4mg/2ml (ZOFRAN) injection 4 mg (1 source) Start: End: take 4 mg intravenously every six hours as needed Ondansetron 4mg/2ml (ZOFRAN) injection 4 mg oxyCODONE hydrochloride 5 mg oral tablet (6 sources) Opioid Agonist Start: End: take 1 tablet by mouth every six hours as needed for pain Oxycodone 5 MG tablet Discontinued 5 mg PO EVERY 6 HOURS NEEDED as needed for Severe Pain () 19 02November 21, 2018 8:31pm November 27, 2018 12:00am November 28, 2018 12:06am pantoprazole 40 mg delayed release oral tablet (7 sources) Proton Pump Inhibitor Start: End: take 40 mg by mouth once daily 40 mg, Oral, DAILY, First dose on Mon09/27/23 at 0900, Until Discontinued, Swallow whole; do not crush or chew., Indications: Continuation of Home Therapy, GERD Start: 10-16-2018 End: 11-21-2018 take 1 tablet by mouth once daily Pantoprazole 20 MG tablet Discontinued 20 mg PO DAILY@0800 October 16, 2018 6:49pm November 21, 2018 8:30pm Polyethylene glycol (MIRALAX) packet 17 g (1 source) Start: 09-27-2023 End: 09-29-2023 Polyethylene glycol (MIRALAX) packet 17 g polyethylene glycol 3350 054007 mg / potassium chloride 2970 mg / sodium bicarbonate 6740 mg / sodium chloride 5860 mg / sodium sulfate 90590 mg powder for oral solution (1 source) Osmotic Laxative Start: 05-08-2024 End: 05-08-2024 peg 3350-Electrolytes (GOLYTELY) 236-22.74-6.74 -5.86 gram suspension Indications: Diverticulitis , Bloody stools , Blood in stool Take 4,000 mL by mouth one time only for 1 dose. Refer to printed prep instructions from your provider. 4000 mL 05/08/2024 05/08/2024 predniSONE 20 mg oral tablet (8 sources) Start: 08-15-2023 End: 10-17-2023 take 1 tablet by mouth once daily predniSONE (DELTASONE) 20 mg tablet Indications: Sinobronchitis Take 1 tablet by mouth once daily. 10 tablet 0 08/15/2023 10/17/2023 Discontinued Comment on above: Take 1 tablet by radha once daily. Senna Leaves (1 source) Start: 09-27-2023 End: 09-29-2023 Senna (SENOKOT) tablet 8.6 mg sertraline 50 mg oral tablet (6 sources) Serotonin Reuptake Inhibitor Start: 12-04-2020 End: 12-23-2020 Sertraline 50 mg tablet Discontinued 25 mg PO DAILY December 04, 2020 7:05pm December 23, 2020 7:26pm continue for 1 week with citalopram, then increase to 50mg daily Start: 12-04-2020 End: 12-23-2020 take 25 mg by mouth once daily, then take 50 mg by mouth once daily Sertraline Discontinued 25 MG PO DAILY December 04, 2020 7:05pm December 23, 2020 7:26pm continue for 1 week with citalopram, then increase to 50mg daily 20 ml sodium chloride 9 mg/ml injection (1 source) Start: 09-27-2023 End: 09-27-2023 1-100 mL, Intravenous, ONCE NEEDED, 1 dose, Starting on Mon09/27/23 at 0139, Until Mon09/27/23 at 0140, Flush, MR Procedure sodium phosphate, dibasic 59.3 mg/ml / sodium phosphate, monobasic 161 mg/ml enema (1 source) Start: 05-13-2024 End: 05-13-2024 take 1 dose rectal route once 133 mL, RECTAL, ONCE, 1 dose, On 05/13/24 at 0800, FOR RECTAL USE, Preprocedure Start: 05-13-2024 End: 05-13-2024 take 1 dose rectal route once 133 mL, RECTAL, ONCE, 1 dose, On 05/13/24 at 0800, FOR RECTAL USE, Preprocedure tiZANidine 4 mg oral tablet (1 source) Central alpha-2 Adrenergic Agonist Start: 02-16-2021 End: 04-16-2021 take 1 tablet by mouth every eight hours as needed for muscle spasms tiZANidine (ZANAFLEX) 4 mg tablet Indications: Congenital diplegia (HCC) Take 1 tablet by mouth every 8 hours as needed (muscle spasms). 30 tablet 2 02/16/2021 04/16/2021 Discontinued Problems Active Problems Problem Classification Problem Date Documented Da te Episodic/Chronic Abdominal pain (2 sources) Right inguinal pain; Translations: [Right lower quadrant pain] 11-01-2023 Episodic Acute cerebrovascular disease (2 sources) Cerebrovascular accident; Translations: [Cerebral infarction, unspecified] Onset: 4 Resolved: 4 09-29-2023 Chronic Alcohol-related disorders (13 sources) Alcohol abuse; Translations: [Alcohol abuse, uncomplicated] 12-04-2020 Chronic Anxiety disorders (20 sources) Anxiety state; Translations: [Generalized anxiety disorder] Onset: 9 04-13-2021 Chronic Anxiety disorders (1 source) Feeling irritable; Translations: [Irritability and anger] 12-13-2023 Episodic Cancer of prostate (20 sources) Malignant tumor of prostate; Translations: [Malignant neoplasm of prostate] Onset: Chronic Cardiac and circulatory congenital anomalies (7 sources) Venous malformation; Translations: [Other malformations of cerebral vessels] Onset: 4 09-28-2023 Chronic Conditions associated with dizziness or vertigo (2 sources) Dizziness; Translations: [Dizziness and giddiness] 10-17-2023 Episodic Diseases of mouth; excluding dental (2 sources) Painful mouth; Translations: [Other lesions of oral mucosa] Onset: 5 11-05-2024 Episodic Disorders of teeth and jaw (1 source) Abscess of hard palate; Translations: [Inflammatory conditions of jaws] 11-05-2024 Episodic Diverticulosis and diverticulitis (20 sources) Diverticulitis; Translations: [Diverticulitis of intestine, part unspecified, without perforation or abscess without bleeding] Onset: 4 04-30-2024 Chronic Esophageal disorders (10 sources) Gastroesophageal reflux disease; Translations: [Gastro-esophageal reflux disease without esophagitis] Chronic Fluid and electrolyte disorders (3 sources) Hyponatremia; Translations: [Hypo-osmolality and hyponatremia] 12-04-2020 Episodic Fracture of upper limb (9 sources) Fracture of humerus ; Translations: [Unspecified fracture of shaft of humerus, left arm, initial encounter for closed fracture] 02-09-2019 Episodic Gastrointestinal hemorrhage (20 sources) Blood-tinged feces; Translations: [Melena] Onset: 4 04-30-2024 Episodic Genitourinary symptoms and ill-defined conditions (1 source) Increased frequency of urination; Translations: [Frequency of micturition] 04-12-2023 Episodic Inflammatory conditions of male genital organs (1 source) Acute prostatitis; Translations: [Acute prostatitis] 04-12-2023 Episodic Malaise and fatigue (10 sources) Asthenia; Translations: [Other malaise] Onset: 5 11-02-2018 Episodic Mood disorders (20 sources) Depressive disorder; Translations: [Depression] Onset: 4 Chronic Mycoses (1 source) Tinea unguium; Translations: [Fungal infection of toenail] Onset: 5 Episodic Nutritional deficiencies (4 sources) Vitamin D deficiency; Translations: [Vitamin D deficiency, unspecified] Chronic Osteoporosis (20 sources) Localized osteoporosis - [place]; Translations: [Localized osteoporosis [[place]]] Onset: 1 05-27-2021 Chronic Other aftercare (2 sources) Post-discharge follow-up; Translations: [Encounter for follow-up examination after completed treatment for conditions other than malignant neoplasm] 10-17-2023 Episodic Other and unspecified benign neoplasm (1 source) History of polyp of colon; Translations: [History of colonic polyps] 05-22-2024 Episodic Other congenital anomalies (1 source) Congenital malformation; Translations: [Congenital malformation, unspecified] 06-09-2024 Chronic Other connective tissue disease (3 sources) Spasm; Translations: [Other muscle spasm] 12-04-2020 Episodic Other ear and sense organ disorders (3 sources) Bilateral objective tinnitus of ears; Translations: [Tinnitus, bilateral] 12-11-2020 Episodic Other ear and sense organ disorders (1 source) Impacted cerumen of bilateral ears; Translations: [Impacted cerumen, bilateral] 09-14-2023 Episodic Other ear and sense organ disorders (1 source) Ear sensations - finding; Translations: [Other specified disorders of ear, bilateral] 12-14-2023 Episodic Other liver diseases (3 sources) Elevated liver enzymes level; Translations: [Abnormal levels of other serum enzymes] 12-04-2020 Episodic Other lower respiratory disease (6 sources) Dyspnea; Translations: [Shortness of breath] 12-04-2020 Episodic Other male genital disorders (2 sources) Pain of right testicle; Translations: [Right testicular pain] 11-01-2023 Episodic Other nervous system disorders (10 sources) Chronic low back pain; Translations: [Other chronic pain] Onset: 8 01-10-2018 Chronic Other nervous system disorders (1 source) Impaired cognition; Translations: [Other symptoms and signs involving cognitive functions and awareness] 09-14-2023 Episodic Other non-traumatic joint disorders (1 source) Acute pain; Translations: [Pain in left shoulder] Episodic Other non-traumatic joint disorders (2 sources) Shoulder pain; Translations: [Pain in left shoulder] Episodic Other non-traumatic joint disorders (4 sources) Pain in left shoulder; Translations: [Acute pain of left shoulder due to trauma] 11-02-2018 Episodic Other non-traumatic joint disorders (2 sources) Pain in right shoulder; Translations: [Right shoulder pain] 11-02-2018 Episodic Other screening for suspected conditions (not mental disorders or infectious disease) (3 sources) Plain X-ray pelvis abnormal; Translations: [Abnormal findings on diagnostic imaging of other parts of musculoskeletal system] Episodic Other skin disorders (1 source) Loss of hair; Translations: [Nonscarring hair loss, unspecified] Episodic Other skin disorders (1 source) Eruption; Translations: [Rash and other nonspecific skin eruption] 02-17-2024 Episodic Other skin disorders (1 source) Mass of neck; Translations: [Localized swelling, mass and lump, neck] 04-17-2024 Episodic Other skin disorders (2 sources) Multiple skin tags; Translations: [Other hypertrophic disorders of the skin] 01-14-2025 Episodic Other skin disorders (1 source) Other hypertrophic disorders of the skin; Translations: [Skin tags, multiple acquired] Onset: 5 Episodic Other upper respiratory disease (1 source) Seasonal allergic rhinitis; Translations: [Other seasonal allergic rhinitis] 12-25-2024 Chronic Other upper respiratory disease (1 source) Other seasonal allergic rhinitis; Translations: [Seasonal allergic rhinitis, unspecified trigger] Onset: 5 Chronic Other upper respiratory infections (2 sources) Sore throat symptom; Translations: [Acute pharyngitis, unspecified] Onset: 5 12-25-2024 Episodic Paralysis (20 sources) Cerebral palsy; Translations: [Cerebral palsy, unspecified] Onset: 1 04-16-2021 Chronic Residual codes; unclassified (20 sources) Sleep apnea; Translations: [Sleep apnea, unspecified] Onset: 9 01-05-2018 Chronic Residual codes; unclassified (6 sources) Obstructive sleep apnea syndrome; Translations: [Obstructive sleep apnea (adult) (pediatric)] Chronic Residual codes; unclassified (7 sources) Tobacco user; Translations: [Tobacco use] 11-28-2020 Episodic Residual codes; unclassified (1 source) Human leukocyte antigen B27 test positive; Translations: [Genetic susceptibility to other disease] Episodic Residual codes; unclassified (2 sources) Current drinker; Translations: [Other specified health status] Episodic Residual codes; unclassified (1 source) Memory impairment; Translations: [Other amnesia] 12-14-2023 Episodic Residual codes; unclassified (2 sources) Amnesia; Translations: [Other amnesia] 03-15-2024 Episodic Residual codes; unclassified (1 source) Pain; Translations: [Pain, unspecified] 03-18-2021 Episodic Residual codes; unclassified (2 sources) Confusional state; Translations: [Disorientation, unspecified] 06-03-2024 Episodic Sprains and strains (2 sources) Sprain of knee; Translations: [Sprain of unspecified site of unspecified knee, initial encounter] Onset: 4 Episodic Substance-related disorders (20 sources) Nicotine dependence; Translations: [Nicotine dependence, unspecified, uncomplicated] Onset: 9 02-11-2019 Chronic Superficial injury; contusion (1 source) Abrasion, lower leg; Translations: [Abrasion, unspecified lower leg, initial encounter] 05-17-2024 Episodic Syncope (3 sources) Near syncope; Translations: [Syncope and collapse] Onset: 09-29-2023 Episodic Thyroid disorders (20 sources) Hypothyroidism; Translations: [Hypothyroidism, unspecified] Onset: 9 09-07-2015 Chronic Unclassified (3 sources) Multilevel spinal canal stenosis 11-02-2018 Unclassified (3 sources) Alcohol withdrawal delirium, acute, mixed level of activity 11-28-2020 Viral infection (2 sources) Viral disease; Translations: [Viral infection, unspecified] Onset: 12-25-2024 Episodic Past or Other Problems Problem Classification Problem Date Documented Da te Episodic/Chronic Fracture of lower limb (9 sources) Closed fracture of upper end of right fibula; Translations: [Other fracture of upper and lower end of right fibula, sequela] Onset: 08-15-2024 07-25-2024 Episodic Immunizations and screening for infectious disease (2 sources) Patient encounter status; Translations: [Encounter for immunization] Onset: 04-30-2024 04-30-2024 Episodic Neoplasms of unspecified nature or uncertain behavior (2 sources) Neoplasm of prostate; Translations: [Neoplasm of unspecified behavior of other genitourinary organ] Onset: 09-12-2023 Episodic Other bone disease and musculoskeletal deformities (20 sources) Costal chondritis; Translations: [Chondrocostal junction syndrome [Tietze]] Onset: 05-27-2021 05-27-2021 Episodic Other connective tissue disease (20 sources) Spasticity; Translations: [Cramp and spasm] Onset: 05-27-2021 05-27-2021 Episodic Other non-traumatic joint disorders (20 sources) Hip pain; Translations: [Pain in right hip] Onset: 04-17-2009 04-17-2009 Episodic Other skin disorders (1 source) Localized swelling, mass and lump, neck; Translations: [Neck mass] Onset: 04-17-2024 Episodic Residual codes; unclassified (1 source) Disorientation, unspecified; Translations: [Confusion] Onset: 06-03-2024 Episodic Residual codes; unclassified (2 sources) Other amnesia; Translations: [Memory changes] Onset: 04-17-2024 Episodic Spondylosis; intervertebral disc disorders; other back problems (20 sources) Sacroiliac disorder; Translations: [Sacrococcygeal disorders, not elsewhere classified] Onset: 04-17-2009 04-17-2009 Episodic Unclassified (1 source) Onset: 09-29-2023 09-29-2023 Results Test Name Value Interpretation Reference Range Facility Basic metabolic 2000 panelOr dered By: Sadaf Negrete on 01-17-2025 Anion gap [Moles/Vol] 15 mmol/L 8 - 15 mmol/L [facility] Calcium [Mass/Vol] 9.8 mg/dL 8.5 - 10. 2 mg/dL [facility] Chloride [Moles/Vol] 100 mmol/L 98 - 107 mmol/L [facility] CO2 [Moles/Vol] 19 mmol/L Low 22 - 30 mmol/L [facility] Creatinine [Mass/Vol] 0.93 mg/dL 0.73 - 1.22 mg/dL [facility] GFR/1.73 sq M.predicted among non-blacks MDRD (S/P/Bld) [Vol rate/Area] 96 mL/min/{1.73_m2} - PINF [facility] Comment on above: Estimated Glomerular Filtration Rate (eGFR) is calculated using the 2020 CKD-EPI creatinine equation. This equation utilizes serum creatinine, sex, and age as parameters. The creatinine assay has traceable calibration to isotope dilution-mass spectrometry. Refer to KDIGO guidelines for clinical interpretation. In patients with unstable renal function, e.g. those with acute kidney injury, the eGFR may not accurately reflect actual GFR. Glucose [Mass/Vol] 85 mg/dL 74 - 99 mg/dL [facility] Comment on above: The Lao Diabete s Association (ADA) provides guidance for cutoff values for fasting glucose and random glucose. The ADA defines fasting as no caloric intake for at least 8 hours. Fasting plasma glucose results between 100 to 125 mg/dL indicate increased risk for diabetes (prediabetes). Fasting plasma glucose results greater than or equal to 126 mg/dL meet the criteria for diagnosis of diabetes. In the absence of unequivocal hyperglycemia, results should be confirmed by repeat testing. In a patient with classic symptoms of hyperglycemia or hyperglycemic crisis, random plasma glucose results greater than or equal to 200 mg/dL meet the criteria for diagnosis of diabetes. Reference: Standards of Medical Care in Diabetes 2016, [place] Diabetes Association. Diabetes Care. 2016.39(Suppl 1). Interpretation and review of laboratory results Abnormal [facility] Potassium [Moles/Vol] 4 mmol/L 3.7 - 5.1 mmol/L [facility] Sodium [Moles/Vol] 134 mmol/L Low 136 - 144 mmol/L [facility] Urea nitrogen [Mass/Vol] 23 mg/dL 9 - 24 mg/dL [facility] Basic metabolic 2000 panelon 01-17-2025 Anion gap [Moles/Vol] 15 mmol/L Normal 8-15 [facility] Comment on above: Order Comment: Speci men Type: BLOOD SPECIMENOrdering Facility: [facility] Address: [address] [place] [address] Performed By: #### 2 276-4, 70950-5 ####[facility] LABCLIA [id number] [place] [address] [place]#### 06359-9, 53568-3 ####[facility] MILLWNCLIA [id number] [place] [address] [place] Calcium [Mass/Vol] 9.8 mg/dL Normal 8.5-10.2 [facility] Comment on above: Order Comment: Juani magaly Type: BLOOD SPECIMENOrdering Facility: [facility] Address: [address] [place] [address] Performed By: #### 2 276-4, 16305-7 ####[facility] LABCLIA [id number] [place] [address] [place]#### 09034-1, 35663-7 ####[facility] MILLTOWNCLIA [id number] [place] [address] [place] Chloride [Moles/Vol] 100 mmol/L Normal 98-107 [facility] Comment on above: Order Comment: Speci men Type: BLOOD SPECIMENOrdering Facility: [facility] Address: [address] [place] [address] Performed By: #### 2 276-4, 42316-0 ####[facility] LABCLIA [id number] [place] [address] [place]#### 84007-3, ####[facility] MILLTOWNCLIA [id number] [place] [address] [place] CO2 [Moles/Vol] 19 mmol/L Low 22-30 [facility] Comment on above: Order Comment: Speci men Type: BLOOD SPECIMENOrdering Facility: [facility] Address: [address] [place] [address] [place] [address] Performed By: #### 2 276-4, 20575-3 ####[facility] LABCLIA [id number] [place] [address] [place]#### 06162-1, ####[facility]CL[facility] [id number] [place] [address] [place] Creatinine [Mass/Vol] 0.93 mg/dL Normal 0.73-1.22 [facility] Comment on above: Order Comment: Speci men Type: BLOOD SPECIMENOrdering Facility: [facility] Address: [facility] [place] [facility] [place] [address] Performed By: #### 2 276-4, 26304-7 ####[facility] LABCLIA [id number] [place] [address] [place]#### 14999-4, ####[facility] MILLWNCLIA [id number] [place] [address] [place] Creatinine and Glomerular filtration rate.predicted panel (S/P/Bld) 96 mL/min/1.73m??? Normal >=60 [facility] Comment on above: Order Comment: Speci men Type: BLOOD SPECIMENOrdering Facility: [facility] Address: [address] [place] [address] Result Comment: Heidi mated Glomerular Filtration Rate (eGFR) is calculated using the 2020 CKD-EPI creatinine equation. This equation utilizes serum creatinine, sex, and age as parameters. The creatinine assay has traceable calibration to isotope dilution-mass spectrometry. Refer to KDIGO guidelines for clinical interpretation. In patients with unstable renal function, e.g. those with acute kidney injury, the eGFR may not accurately reflect actual GFR. Performed By: #### 2 276-4, 11864-7 ####[facility] LABIA [id number] [address] [place]#### 99106-7, 12136-9 ####[facility]ITAL[facility] [id number] [place] [address] [place] Glucose [Mass/Vol] 85 mg/dL Normal 74-99 [facility] Comment on above: Order Comment: Mejia magaly Type: BLOOD SPECIMENOrdering Facility: [facility] Address: [address] [place] [address] Result Comment: The Lao Diabetes Association (ADA) provides guidance for cutoff values for fasting glucose and random glucose. The ADA defines fasting as no caloric intake for at least 8 hours. Fasting plasma glucose results between 100 to 125 mg/dL indicate increased risk for diabetes (prediabetes). Fasting plasma glucose results greater than or equal to 126 mg/dL meet the criteria for diagnosis of diabetes. In the absence of unequivocal hyperglycemia, results should be confirmed by repeat testing. In a patient with classic symptoms of hyperglycemia or hyperglycemic crisis, random plasma glucose results greater than or equal to 200 mg/dL meet the criteria for diagnosis of diabetes. Reference: Standards of Medical Care in Diabetes 2016, [place] Diabetes Association. Diabetes Care. 2016.39(Suppl 1). Performed By: #### 2 276-4, 09289-9 ####[facility] LABIA [id number] [address] [address] [place]#### 59470-6, 94232-7 ####[facility] HOSPITALWNCLIA [id number] [place] [address] [place] Potassium [Moles/Vol] 4.0 mmol/L Normal 3.7-5.1 [facility] Comment on above: Order Comment: Speci men Type: BLOOD SPECIMENOrdering Facility: [facility] Address: [address] [place] [address] Performed By: #### 2 276-4, 17466-3 ####[facility] LABCLIA [id number] [place] [address] [place]#### 11176-4, ####[facility] MILLWNCLIA [id number] [place] [address] [place] Sodium [Moles/Vol] 134 mmol/L Low 136-144 [facility] Comment on above: Order Comment: Speci men Type: BLOOD SPECIMENOrdering Facility: [facility] Address: [address] [place] [address] Performed By: #### 2 276-4, 27706-6 ####[facility] LABCLIA [id number] [place] [address] [place]#### 81193-1, ####[facility] HOSPITALWTNLIA [id number] [place] [address] [place] Urea nitrogen [Mass/Vol] 23 mg/dL Normal 9-24 [facility] Comment on above: Order Comment: Speci men Type: BLOOD SPECIMENOrdering Facility: [facility] Address: [facility] [place] [id number] Performed By: #### 2 276-4, 46423-2 ####[facility] LABCLIA [id number] [place] [id number] [place]#### 68626-0, 39951-9 ####[facility] [id number] [place] [address] [place] CBC W Auto Differential pane l (Bld)on 01-17-2025 Basophils (Bld) [#/Vol] 0.04 10*3/uL [facility] Basophils/100 WBC (Bld) 0.4 % [facility] Differential cell count method Nom (Bld) Auto [facility] Eosinophils (Bld) [#/Vol] 0.11 10*3/uL [facility] Eosinophils/100 WBC (Bld) 1.1 % [facility] Erythrocyte distribution width (RBC) [Ratio] 12.9 % 11.5 - 15.0 % [facility] Hematocrit (Bld) [Volume fraction] 43.9 % 39.0 - 51.0 % [facility] Hemoglobin (Bld) [Mass/Vol] 15.6 g/dL 13.0 - 17.0 g/dL [facility] Immature granulocytes (Bld) [#/Vol] 0.09 10*3/uL [facility] Immature granulocytes/100 WBC (Bld) 0.9 % [facility] Lymphocytes (Bld) [#/Vol] 1.62 10*3/uL [facility] Lymphocytes/100 WBC (Bld) 16.5 % [facility] MCH (RBC) [Entitic mass] 31.4 pg 26.0 - 34.0 pg [facility] MCHC (RBC) [Mass/Vol] 35.5 g/dL 30.5 - 36.0 g/dL [facility] MCV (RBC) [Entitic vol] 88.3 fL 80.0 - 100.0 fL [facility] Monocytes (Bld) [#/Vol] 0.7 10*3/uL [facility] Monocytes/100 WBC (Bld) 7.1 % [facility] Neutrophils (Bld) [#/Vol] 7.25 10*3/uL [facility] Neutrophils/100 WBC (Bld) 74 % [facility] Nucleated RBC (Bld) [#/Vol] [facility] Nucleated RBC/100 WBC (Bld) [Ratio] 0 % /100 WBC [facility] Platelet mean volume (Bld) [Entitic vol] 11.3 fL 9.0 - 12.7 fL [facility] Platelets (Bld) [#/Vol] 251 10*3/uL [facility] RBC (Bld) [#/Vol] 4.97 10*6/uL 4.20 - 6.0 0 m/uL [facility] WBC (Bld) [#/Vol] 9.81 10*3/uL [facility] Basophils (Bld) [#/Vol] 0.04 10*3/uL Normal <0.11 [facility] Comment on above: Order Comment: Speci men Type: BLOOD SPECIMENOrdering Facility: [facility] Address: [address] [place] [address] Performed By: #### 5 7021-8 ####[facility] MILLTOWNCLIA [id number] [place] [address] [place] Basophils/100 WBC (Bld) 0.4 % Normal [facility] Comment on above: Order Comment: Speci men Type: BLOOD SPECIMENOrdering Facility: [facility] Address: [address] [place] [address] Performed By: #### 5 7021-8 ####[facility]LESNCLIA [id number] [place] [address] [place] Differential cell count method Nom (Bld) Auto Normal [facility] Comment on above: Order Comment: Speci men Type: BLOOD SPECIMENOrdering Facility: [facility] Address: [address] [place] [address] Performed By: #### 5 7021-8 ####[facility] MILLTOWNCLIA [id number] [place] [address] [place] Eosinophils (Bld) [#/Vol] 0.11 10*3/uL Normal <0.46 [facility] Comment on above: Order Comment: Speci men Type: BLOOD SPECIMENOrdering Facility: [facility] Address: [address] [place] [address] Performed By: #### 5 7021-8 ####[facility] [id number] [place] [address] [place] Eosinophils/100 WBC (Bld) 1.1 % Normal [facility] Comment on above: Order Comment: Speci men Type: BLOOD SPECIMENOrdering Facility: [facility] Address: [address] [place] [address] Performed By: #### 5 7021-8 ####[facility] [id number] [place] [address] [place] Erythrocyte distribution width (RBC) [Ratio] 12.9 % Normal 11.5-15.0 [facility] Comment on above: Order Comment: Speci men Type: BLOOD SPECIMENOrdering Facility: [facility] Address: [address] [place] [address] Performed By: #### 5 7021-8 ####[facility] [id number] [place] [address] [place] Hematocrit (Bld) [Volume fraction] 43.9 % Normal 39.0-51.0 [facility] Comment on above: Order Comment: Speci men Type: BLOOD SPECIMENOrdering Facility: [facility] Address: [address] [place] [address] Performed By: #### 5 7021-8 ####[facility] [id number] [place] [address] [place] Hemoglobin (Bld) [Mass/Vol] 15.6 g/dL Normal 13.0-17.0 [facility] Comment on above: Order Comment: Speci men Type: BLOOD SPECIMENOrdering Facility: [facility] Address: [address] [place] [address] Performed By: #### 5 7021-8 ####[facility]ALLI [id number] [place] [address] [place] Immature granulocytes (Bld) [#/Vol] 0.09 10*3/uL Normal <0.10 [facility] Comment on above: Order Comment: Speci men Type: BLOOD SPECIMENOrdering Facility: [facility] Address: [address] [place] [address] Performed By: #### 5 7021-8 ####[facility]NC[facility] [id number] [place] [address] [place] Immature granulocytes/100 WBC (Bld) 0.9 % Normal [facility] Comment on above: Order Comment: Speci men Type: BLOOD SPECIMENOrdering Facility: [facility] Address: [address] [place] [address] Performed By: #### 5 7021-8 ####[facility] [id number] [place] [address] [place] Lymphocytes (Bld) [#/Vol] 1.62 10*3/uL Normal 1.00-4.00 [facility] Comment on above: Order Comment: Speci men Type: BLOOD SPECIMENOrdering Facility: [facility] Address: [address] [place] [address] Performed By: #### 5 7021-8 ####[facility] [id number] [address] [place] Lymphocytes/100 WBC (Bld) 16.5 % Normal [facility] Comment on above: Order Comment: Speci men Type: BLOOD SPECIMENOrdering Facility: [facility] Address: [address] [place] [address] Performed By: #### 5 7021-8 ####[facility] [id number] [place] [address] [place] MCH (RBC) [Entitic mass] 31.4 pg Normal 26.0-34.0 [facility] Comment on above: Order Comment: Speci men Type: BLOOD SPECIMENOrdering Facility: [facility] Address: [address] [place] [address] Performed By: #### 5 7021-8 ####[facility] MECCANCKARENA [id number] [place] [address] [place] MCHC (RBC) [Mass/Vol] 35.5 g/dL Normal 30.5-36.0 [facility] Comment on above: Order Comment: Speci men Type: BLOOD SPECIMENOrdering Facility: [facility] Address: [address] [place] [address] Performed By: #### 5 7021-8 ####[facility] N[facility]LESNCKARENA [id number] [place] [address] [place] MCV (RBC) [Entitic vol] 88.3 fL Normal 80.0-100.0 [facility] Comment on above: Order Comment: Speci men Type: BLOOD SPECIMENOrdering Facility: [facility] Address: [address] [place] [address] Performed By: #### 5 7021-8 ####[facility] N[facility]LESNCLIA [id number] [place] [address] [place] Monocytes (Bld) [#/Vol] 0.70 10*3/uL Normal <0.87 [facility] Comment on above: Order Comment: Speci men Type: BLOOD SPECIMENOrdering Facility: [facility] Address: [address] [place] [address] Performed By: #### 5 7021-8 ####[facility] HOSPITALWNCLIA [id number] [place] [address] [place] Monocytes/100 WBC (Bld) 7.1 % Normal [facility] Comment on above: Order Comment: Speci men Type: BLOOD SPECIMENOrdering Facility: [facility] Address: [address] [place] [address] Performed By: #### 5 7021-8 ####[facility]NC[facility] [id number] [place] [address] [place] Neutrophils (Bld) [#/Vol] 7.25 10*3/uL Normal 1.45-7.50 [facility] Comment on above: Order Comment: Speci men Type: BLOOD SPECIMENOrdering Facility: [facility] Address: [address] [place] [address] Performed By: #### 5 7021-8 ####[facility] [id number] [place] [address] [place] Neutrophils/100 WBC (Bld) 74.0 % Normal [facility] Comment on above: Order Comment: Speci men Type: BLOOD SPECIMENOrdering Facility: [facility] Address: [address] [place] [address] Performed By: #### 5 7021-8 ####[facility] [id number] [place] [address] [place] Nucleated RBC (Bld) [#/Vol] 10*3/uL Normal <0.01 [facility] Comment on above: Order Comment: Speci men Type: BLOOD SPECIMENOrdering Facility: [facility] Address: [address] [place] [address] Performed By: #### 5 7021-8 ####[facility] [id number] [place] [address] [place] Nucleated RBC/100 WBC (Bld) [Ratio] 0.0 /100 WBC Normal [facility] Comment on above: Order Comment: Speci men Type: BLOOD SPECIMENOrdering Facility: [facility] Address: [address] [place] [address] Performed By: #### 5 7021-8 ####[facility] [id number] [place] [address] [place] Platelet mean volume (Bld) [Entitic vol] 11.3 fL Normal 9.0-12.7 [facility] Comment on above: Order Comment: Speci men Type: BLOOD SPECIMENOrdering Facility: [facility] Address: [address] [place] [address] Performed By: #### 5 7021-8 ####[facility] N[facility]LESNCKARENA [id number] [place] [address] [place] Platelets (Bld) [#/Vol] 251 10*3/uL Normal 150-400 [facility] Comment on above: Order Comment: Speci men Type: BLOOD SPECIMENOrdering Facility: [facility] Address: [address] [place] [address] Performed By: #### 5 7021-8 ####[facility] N[facility]LESNCA [id number] [place] [address] [place] RBC (Bld) [#/Vol] 4.97 10*6/uL Normal 4.20-6.00 [facility] Comment on above: Order Comment: Speci men Type: BLOOD SPECIMENOrdering Facility: [facility] Address: [address] [place] [address] Performed By: #### 5 7021-8 ####[facility] N[facility]LESNCA [id number] [place] [address] [place] WBC (Bld) [#/Vol] 9.81 10*3/uL Normal 3.70-11.00 [facility] Comment on above: Order Comment: Speci men Type: BLOOD SPECIMENOrdering Facility: [facility] Address: [address] [place] [address] Performed By: #### 5 7021-8 ####[facility] N[facility]LESNCLIA [id number] [place] [address] [place] CNOVon 01-17-2025 CNOV Office Visit (FAMPWS ) GOOD DE LUNA ([id number]) 1965 M Date Time Provider Department 01/17/25 10:20 AM INO ESQUEDA During your visit today, we recorded the following information about you: Pulse Blood pressure 69/minute 117/66 Ino Esqueda, PHYSICIAN UNDERWRITER.REBRANDER 01/17/2025 10:41 AM Signed Chief Complaint Patient presents with: Follow Up HPI Good De Luna is a 59 year old male who presents here today for Above Complaints. Patient presents for follow up. Patient was seen on 01/14 with reports of increased BM and blood with BM. Patient was initiated on flagyl and cedinir, no BM since initiation of ATB. Patient requesting pain mgt consult for low back. Also requesting testing to check vitamin b's, d and electrolytes as patient is fatigued. Past medical history, appointments, medications, allergies reviewed. Previous Medical History PAST MEDICAL HISTORY Diagnosis Date Acid reflux Anxiety state, unspecified Arthritis Cancer (HCC) Cerebral palsy (HCC) Congenital diplegia (HCC) Diverticulitis GERD (gastroesophageal reflux disease) JODEE on CPAP Sleep apnea 09/22/2008 Spinal stenosis Unspecified hypothyroidism Previous Surgical History PAST SURGICAL HISTORY Procedure Laterality Date COLONOSCOPY 05/13/2024 PAST SURGICAL HISTORY OF trigger finger procedure as a child TONSILLECTOMY HX TONSILLECTOMY PRIMARY/SECONDARY Tonsillectomy Family History FAMILY HISTORY Adopted: Yes Problem Relation Age of Onset Diabetes Mother Thyroid Maternal Grandmother Patient Allergies ALLERGIES No Known Allergies Current Medications Current Outpatient Medications on File Prior to Visit Medication Sig cefdinir (OMNICEF) 300 mg capsule Take 1 capsule by mouth two times a day for 7 days. metroNIDAZOLE (FLAGYL) 500 mg tablet Take 1 tablet by mouth three times a day for 7 days. fexofenadine (MARY ALLERGY) 180 mg tablet Take 1 tablet by mouth once daily. loratadine (CLARITIN) 10 mg tablet Take 1 tablet by mouth once daily as needed (for allergy symptoms). fluticasone (FLONASE ALLERGY RELIEF) 50 mcg/actuation nasal spray Use 1 spray in each nostril once daily. citalopram (CELEXA) 40 mg tablet Take 1 tablet by mouth once daily. levothyroxine (SYNTHROID) 150 mcg tablet Take 1 tablet by mouth once daily. omeprazole (PRILOSEC) 20 mg capsule take 1 capsule by mouth once daily cholecalciferol, vitamin D3, (VITAMIN D3 ORAL) Take 2,000 mcg by mouth once daily. CPAP Initiate CPAP @ 7 cm of water with humidification. Mask (per patient preference) optional chin strap (if indicated) , filters, tubing, humidifier and lifetime supplies. multivit-min/folic/vit K/lycop (MEN'S 50 PLUS MULTIVITAMIN ORAL) Take 1 tablet by mouth once daily. vitamin b complex capsule Take 1 capsule by mouth once daily. No current facility-administered medications on file prior to visit. Social History Social History Tobacco Use Smoking status: Former Current packs/day: 0.00 Average packs/day: 1 pack/day for 30.0 years (30.0 ttl pk-yrs) Types: Cigarettes Start date: 07/29/1993 Quit date: 07/29/2023 Years since quittin.4 Smokeless tobacco: Never Tobacco comments: Pt has cut back to 1/4 pack daily. Vaps off and on Vaping Use Vaping status: Some Days Substances: Nicotine Substance Use Topics Alcohol use: Yes Comment: 3/4 beers per week Drug use: No Review of Symptoms REVIEW OF SYSTEMS SEE HPI EXAM: BP 117/66 Pulse 69 General Appearance: Well appearing, alert, in no acute distress, well-hydrated, well nourished.. Abdomen: Abdomen soft, non-tender. Bowel sounds normal. No masses, organomegaly. Health Maintenance List HIV Screening Never done Hepatitis B Vaccine(1 of 3 - 19+ 3-dose series) Never done Shingrix Vaccine(1 of 2) Never done Pneumococcal Vaccine: 50+(1 of 1 - PCV) Never done Lung Cancer Screening due on 06/08/2022 Medicare Advantage Annual Wellness Visit Never done Influenza Vaccine(Season Ended) due on 03/24/2025 Colorectal Cancer Screening due on 05/13/2025 Annual PCP Team Chronic Disease Visit due on 01/14/2026 Diabetes Screening due on 07/12/2027 DTaP,Tdap,Td Vaccine(3 - Td or Tdap) due on 08/28/2028 Lipid Screening due on 09/25/2028 Prostate Cancer Screening Discussion due on 05/03/2029 Hepatitis C Screening Completed Covid-19 Vaccine Completed ASSESSMENT/PLAN: 1. Blood in stool - ICD9: 578.1, ICD10: K92.1 (primary diagnosis) - COMPLETE BLOOD COUNT AND DIFFERENTIAL - IRON AND TIBC - FERRITIN 2. Diverticulitis - ICD9: 562.11, ICD10: K57.92 - IRON AND TIBC - FERRITIN 3. Fatigue, unspecified type - ICD9: 780.79, ICD10: R53.83 - BASIC METABOLIC PANEL - MAGNESIUM - VITAMIN B1 (THIAMINE), WHOLE BLOOD - VITAMIN B2/RIBOFLAV - VITAMIN B6/PYRIDOXIN - VITAMIN B12 4. Low energy - ICD9: 780.79, ICD10: R53.83 - BASIC METABO (more content not included)... Normal [facility] FERRITINon 01-17-2025 Ferritin [Mass/Vol] 363 ng/mL 30.3 - 5 65.7 ng/mL [facility] Ferritin SerPl-mCncon 2024 Ferritin [Mass/Vol] 363.0 ng/mL Normal 30.3-565.7 [facility] Comment on above: Order Comment: Speci men Type: BLOOD SPECIMENOrdering Facility: [facility] Address: [address] [place] [address] Performed By: #### 2 276-4, 46785-8 ####[facility] LABCLIA [id number] [place] [address] [place]#### 23446-9, 85874-1 ####[facility] [id number] [place] [address] [place] Ferritin [Mass/Vol]on 2024 Interpretation and review of laboratory results Normal [facility] Iron and Iron binding capaci ty panelon 01-17-2025 Interpretation and review of laboratory results Normal [facility] Iron [Mass/Vol] 47 ug/dL 41 - 186 ug/dL [facility] Iron binding capacity [Mass/Vol] 305 ug/dL 232 - 386 ug/dL [facility] Iron/TIBC [Molar ratio] 15.4 % 15.0 - 57.0 % [facility] Iron [Mass/Vol] 47 ug/dL Normal 41-186 [facility] Comment on above: Order Comment: Speci men Type: BLOOD SPECIMENOrdering Facility: [facility] Address: [address] [place] [address] Performed By: #### 2 276-4, 45733-4 ####[facility] LABCLIA [id number] [place] [address] [place]#### 73474-4, 46894-1 ####[facility] TARUN MILLTOWNCLIA [id number] [place] [address] [place] Iron binding capacity [Mass/Vol] 305 ug/dL Normal 232-386 [facility] Comment on above: Order Comment: Speci men Type: BLOOD SPECIMENOrdering Facility: [facility] Address: [address] [place] [address] Performed By: #### 2 276-4, 72311-4 ####[facility] LABCLIA [id number] [place] [address] [place]#### [id number], ####[facility] TARUN MILLTOWNCLIA [id number] [address] [place] Iron/TIBC [Molar ratio] 15.4 % Normal 15.0-57.0 [facility] Comment on above: Order Comment: Speci men Type: BLOOD SPECIMENOrdering Facility: [facility] Address: [facility] [place] [id number] Performed By: #### 2 276-4, 53739-0 ####[facility] LABCLIA [id number] [place] [address] [place]#### 31463-0, 54464-3 ####[facility] TARUN MILLTOWNCLIA [id number] [place] [address] [place] MAGNESIUMon 01-17-2025 Magnesium [Mass/Vol] 1.7 mg/dL 1.7 - 2.3 mg/dL [facility] Magnesium SerPl-mCncon 01-17 Magnesium [Mass/Vol] 1.7 mg/dL Normal 1.7-2.3 [facility] Comment on above: Order Comment: Mejia mckenzie Type: BLOOD SPECIMENOrdering Facility: [facility] Address: [address] [place] [address] Performed By: #### 2 276-4, 37468-3 ####[facility] LABCLIA [id number] [place] [address] [place]#### 17930-9, 92517-8 ####[facility] TARUN [facility] [id number] [address] [place] Magnesium [Mass/Vol]on 01-17 Interpretation and review of laboratory results Normal [facility] Vit B12 [facility] 025 Cobalamin (Vitamin B12) [Mass/Vol] 568 pg/mL Normal 232-1245 [facility] Comment on above: Order Comment: Mejia mckenzie Type: BLOOD SPECIMENOrdering Facility: [facility] Address: [address] [place] [address] Performed By: #### 2 132-9 ####[facility] LABCLIA [id number] [address] [place] CNOVon 01-14-2025 CNOV Office Visit (FAMPWS ) GOOD DE LUNA ([id number]) 1965 M Date Time Provider Department 01/14/25 10:20 AM INO ESQUEDA During your visit today, we recorded the following information about you: Pulse Blood pressure Weight 68/minute 123/71 101 kg Ino Esqueda APRN.REBRANDER 01/14/2025 10:42 AM Signed Chief Complaint Patient presents with: Derm Problem: Skin tags Diverticulitis HPI Good De Luna is a 59 year old male who presents here today for Above Complaints. Patient presents for LLQ pain and bleeding with BM. Has hx of Diverticulitis and large amounts of polyps on last colonoscopy. Patient also reports multiple skin tags to b/l axillary. Past medical history, appointments, medications, allergies reviewed. Previous Medical History PAST MEDICAL HISTORY Diagnosis Date Acid reflux Anxiety state, unspecified Arthritis Cancer (HCC) Cerebral palsy (HCC) Congenital diplegia (HCC) Diverticulitis GERD (gastroesophageal reflux disease) JODEE on CPAP Sleep apnea 09/22/2008 Spinal stenosis Unspecified hypothyroidism Previous Surgical History PAST SURGICAL HISTORY Procedure Laterality Date COLONOSCOPY 05/13/2024 PAST SURGICAL HISTORY OF trigger finger procedure as a child TONSILLECTOMY HX TONSILLECTOMY PRIMARY/SECONDARY Tonsillectomy Family History FAMILY HISTORY Adopted: Yes Problem Relation Age of Onset Diabetes Mother Thyroid Maternal Grandmother Patient Allergies ALLERGIES No Known Allergies Current Medications Current Outpatient Medications on File Prior to Visit Medication Sig fexofenadine (MARY ALLERGY) 180 mg tablet Take 1 tablet by mouth once daily. loratadine (CLARITIN) 10 mg tablet Take 1 tablet by mouth once daily as needed (for allergy symptoms). fluticasone (FLONASE ALLERGY RELIEF) 50 mcg/actuation nasal spray Use 1 spray in each nostril once daily. citalopram (CELEXA) 40 mg tablet Take 1 tablet by mouth once daily. levothyroxine (SYNTHROID) 150 mcg tablet Take 1 tablet by mouth once daily. omeprazole (PRILOSEC) 20 mg capsule take 1 capsule by mouth once daily cholecalciferol, vitamin D3, (VITAMIN D3 ORAL) Take 2,000 mcg by mouth once daily. CPAP Initiate CPAP @ 7 cm of water with humidification. Mask (per patient preference) optional chin strap (if indicated) , filters, tubing, humidifier and lifetime supplies. multivit-min/folic/vit K/lycop (MEN'S 50 PLUS MULTIVITAMIN ORAL) Take 1 tablet by mouth once daily. vitamin b complex capsule Take 1 capsule by mouth once daily. No current facility-administered medications on file prior to visit. Social History Social History Tobacco Use Smoking status: Former Current packs/day: 0.00 Average packs/day: 1 pack/day for 30.0 years (30.0 ttl pk-yrs) Types: Cigarettes Start date: 07/29/1993 Quit date: 07/29/2023 Years since quittin.4 Smokeless tobacco: Never Tobacco comments: Pt has cut back to 1/4 pack daily. Vaps off and on Vaping Use Vaping status: Some Days Substances: Nicotine Substance Use Topics Alcohol use: Yes Comment: 3/4 beers per week Drug use: No Review of Symptoms REVIEW OF SYSTEMS SEE HPI EXAM: BP 123/71 Pulse 68 Wt 101 kg (222 lb 10.6 oz) BMI 37.05 kg/m? General Appearance: Well appearing, alert, in no acute distress, well-hydrated, well nourished.. Skin: Skin color, texture, turgor normal, no suspicious rashes or lesions, skin tags to b/l axilla. Abdomen: Normal abdominal exam, Positive findings: obese, tenderness mild LLQ, hypoactive bowel sounds. Health Maintenance List HIV Screening Never done Hepatitis B Vaccine(1 of 3 - 19+ 3-dose series) Never done Shingrix Vaccine(1 of 2) Never done Pneumococcal Vaccine: 50+(1 of 1 - PCV) Never done Lung Cancer Screening due on 06/08/2022 Medicare Advantage Annual Wellness Visit Never done Influenza Vaccine(Season Ended) due on 03/24/2025 Colorectal Cancer Screening due on 05/13/2025 Annual PCP Team Chronic Disease Visit due on 12/13/2025 Diabetes Screening due on 07/12/2027 DTaP,Tdap,Td Vaccine(3 - Td or Tdap) due on 08/28/2028 Lipid Screening due on 09/25/2028 Prostate Cancer Screening Discussion due on 05/03/2029 Hepatitis C Screening Completed Covid-19 Vaccine Completed ASSESSMENT/PLAN: 1. Diverticulitis - ICD9: 562.11, ICD10: K57.92 - Follow up in 3 days for re-evaluation. Patient advised to go to ER if fever, chills, bleeding with no BM, or sharp shooting pain. - CEFDINIR 300 MG CAPSULE - METRONIDAZOLE 500 MG TABLET 2. Skin tags, multiple acquired - ICD9: 701.9, ICD10: L91.8 - CONSULT TO DERMATOLOGY Ino Esqueda APRN.REBRANDER Allergies As of Date: 01/14/2025 (No Known Allergies) Date Reviewed: 01/14/2025 Reviewed by: Patsy Ferrara MA - Fully Assessed Reason for Visit: Derm Problem [33] Cmt: Skin tags Diverticulitis [271] Primary Vi (more content not included)... [facility] ([id number]) 1965 M Date Time Provider Department 01/10/25 MATHEW COBIAN [facility] During your visit today, we recorded the following information about you: Ashlyn London, RN 01/10/2025 12:40 PM Signed Pt reports he is struggling with allergies. States he was tested and has allergies to everything. Reports no Shortness of Breath, no headache. Has drainage that bothers his ears. No ear pain. Reports the claritin really does not help with his allergies. Asking if pcp can order something different. Teena Mcneil. Mathew Cobian MD 01/10/2025 2:00 PM Signed OK to switch to Mary as ordered MD Judd Jimenez Kathryn, MA 01/10/2025 2:05 PM Signed Pt notified. Laura Whaley MA Allergies As of Date: 01/10/2025 (No Known Allergies) Date Reviewed: 12/13/2024 Reviewed by: Laura Whaley MA - Fully Assessed Reason for Visit: Medication Problem [65] Order(s):fexofenadine (MARY ALLERGY) 180 mg tabletTake 1 tablet by mouth once daily.Disp: 30 tabletRfl: 5 Prescriptions as of 01/10/2025 - fexofenadine (MARY ALLERGY) 180 mg tablet Take 1 tablet by mouth once daily. - loratadine (CLARITIN) 10 mg tablet Take 1 tablet by mouth once daily as needed (for allergy symptoms). - fluticasone (FLONASE ALLERGY RELIEF) 50 mcg/actuation nasal spray Use 1 spray in each nostril once daily. - citalopram (CELEXA) 40 mg tablet Take 1 tablet by mouth once daily. - levothyroxine (SYNTHROID) 150 mcg tablet Take 1 tablet by mouth once daily. - omeprazole (PRILOSEC) 20 mg capsule take 1 capsule by mouth once daily - cholecalciferol, vitamin D3, (VITAMIN D3 ORAL) Take 2,000 mcg by mouth once daily. - CPAP Initiate CPAP @ 7 cm of water with humidification. Mask (per patient preference) optional chin strap (if indicated) , filters, tubing, humidifier and lifetime supplies. - multivit-min/folic/vit K/lycop (MEN'S 50 PLUS MULTIVITAMIN ORAL) Take 1 tablet by mouth once daily. - vitamin b complex capsule Take 1 capsule by mouth once daily. Problem List As Of Date 01/10/2025 Noted Resolved Sleep apnea [G47.30] 09/22/2008 Hypothyroidism [E03.9] 03/27/2009 Anxiety state [F41.1] 03/27/2009 Bilateral Hip Pain [M25.551, M25.552] 04/17/2009 SI (Sacroiliac) Joint Dysfunction [M53.3] 04/17/2009 Thoracic or lumbosacral neuritis or radiculitis*04/25/2014 Spinal stenosis of lumbar region [M48.061] 12/12/2017 Chronic bilateral low back pain with right-side*01/10/2018 Back pain [M54.9] 02/10/2019 Nicotine use disorder, F17.2 [F17.200] 02/11/2019 Cerebral palsy (HCC) [G80.9] Congenital diplegia (HCC) [G80.8] 05/27/2021 Spasticity [R25.2] 05/27/2021 Costochondritis [M94.0] 05/27/2021 Localized osteoporosis ([place]) [M81.6] 05/27/2021 Recurrent major depressive disorder, remission *10/17/2023 Prostate cancer (HCC) [C61] 10/17/2023 Diverticulitis [K57.92] 04/30/2024 Rectal bleeding [K62.5] 05/12/2024 Prescriptions ordered this encounter Disp Refills Start End FEXOFENADINE 180 MG TABLET 30 t* 5 01/10/2025 Route: PO Sig: Take 1 tablet by mouth once daily. Encounter Status:Closed by LAURA WHALEY on 01/10/25 [facility] CNOVon 12-25-2024 CNOV Office Visit (UCWSTR ) GOOD DE LUNA ([id number]) 1965 M Date Time Provider Department 12/25/24 1:30 PM GREYSON [facility] During your visit today, we recorded the following information about you: Temperature Pulse Respiration Blood pressure 98.4 degrees 67/minute 20/minute 128/70 Weight 99.5 kg Greyson Ellsworth APRN.REBRANDER 12/25/2024 2:13 PM Signed [facility] Subjective Good De Luna is a 59 year old male. Patient presents with: Sore Throat: Possible strep throat started this morning Sore Throat Associated symptoms include congestion and ear pain. Pertinent negatives include no coughing, headaches or shortness of breath. Patient is a 59 year old male that presents with sinus congestion, bilateral ear pain. He did have an exposure to strep, but also has a history of allergic rhinitis. Review of Systems Constitutional: Negative for chills and fever. HENT: Positive for congestion, ear pain and sore throat. Respiratory: Negative for cough, shortness of breath and wheezing. Cardiovascular: Negative for chest pain. Neurological: Negative for headaches. Objective BP 128/70 Pulse 67 Temp 36.9 ?C (98.4 ?F) Resp 20 Wt 99.5 kg (219 lb 5.7 oz) SpO2 98% BMI 36.50 kg/m? PAST MEDICAL HISTORY Diagnosis Date Acid reflux Anxiety state, unspecified Arthritis Cancer (HCC) Cerebral palsy (HCC) Congenital diplegia (HCC) Diverticulitis GERD (gastroesophageal reflux disease) JODEE on CPAP Sleep apnea 09/22/2008 Spinal stenosis Unspecified hypothyroidism PAST SURGICAL HISTORY Procedure Laterality Date COLONOSCOPY 05/13/2024 PAST SURGICAL HISTORY OF trigger finger procedure as a child TONSILLECTOMY HX TONSILLECTOMY PRIMARY/SECONDARY Tonsillectomy ALLERGIES Patient has no known allergies. MEDICATIONS citalopram (CELEXA) 40 mg tablet Take 1 tablet by mouth once daily. levothyroxine (SYNTHROID) 150 mcg tablet Take 1 tablet by mouth once daily. omeprazole (PRILOSEC) 20 mg capsule take 1 capsule by mouth once daily cholecalciferol, vitamin D3, (VITAMIN D3 ORAL) Take 2,000 mcg by mouth once daily. CPAP Initiate CPAP @ 7 cm of water with humidification. Mask (per patient preference) optional chin strap (if indicated) , filters, tubing, humidifier and lifetime supplies. multivit-min/folic/vit K/lycop (MEN'S 50 PLUS MULTIVITAMIN ORAL) Take 1 tablet by mouth once daily. vitamin b complex capsule Take 1 capsule by mouth once daily. loratadine (CLARITIN) 10 mg tablet Take 1 tablet by mouth once daily as needed (for allergy symptoms). fluticasone (FLONASE ALLERGY RELIEF) 50 mcg/actuation nasal spray Use 1 spray in each nostril once daily. FAMILY HISTORY Adopted: Yes Problem Relation Age of Onset Diabetes Mother Thyroid Maternal Grandmother Social History Tobacco Use Smoking status: Former Current packs/day: 0.00 Average packs/day: 1 pack/day for 30.0 years (30.0 ttl pk-yrs) Types: Cigarettes Start date: 07/29/1993 Quit date: 07/29/2023 Years since quittin.4 Smokeless tobacco: Never Tobacco comments: Pt has cut back to 1/4 pack daily. Vaps off and on Vaping Use Vaping status: Some Days Substances: Nicotine Substance Use Topics Alcohol use: Yes Comment: 3/4 beers per week Drug use: No Physical Exam Vitals and nursing note reviewed. Constitutional: Appearance: Normal appearance. HENT: Right Ear: Ear canal and external ear normal. A middle ear effusion is present. Left Ear: A middle ear effusion is present. Mouth/Throat: Pharynx: Uvula midline. Posterior oropharyngeal erythema and postnasal drip present. No oropharyngeal exudate. Tonsils: No tonsillar exudate or tonsillar abscesses. Lymphadenopathy: Cervical: No cervical adenopathy. Neurological: Mental Status: He is alert. {ASSESSMENT/PLAN: 1. Sore throat - ICD9: 462, ICD10: J02.9 (primary diagnosis) - Group A strep molecular testing negative - Discussed supportive care treatment with fluids, rest and analgesia. - The patient should follow up in 3-5 days if symptoms persist or worsen - STREP A MOLECULAR (POC) 2. Viral illness - ICD9: 079.99, ICD10: B34.9 - Discussed viral etiology and rationale for treatment. - Symptomatic treatment with prn analgesia - Supportive care with fluids and rest 3. Seasonal allergic rhinitis, unspecified trigger - ICD9: 477.9, ICD10: J30.2 -Started Flonase and Claritin follow up with pcp. Greyson Ellsworth APRN.REBRANDER History and Record Review Clinical information obtained from an independent historian. History obtained from or confirmed by: family member. External record(s) reviewed: prior outpatient record. Findings from review of outpatient records: Previous medical history Differential Diagnoses - allergic rhinitis is more likely for the following reason(s): suggested by HANDP - Strep is less likely for the following re (more content not included)... Normal [facility] STREP A MOLECULAR (POC)on Procedural Control Valid [facility] Strep A (POCT) Negative Negative [facility] CNOVon 12-13-2024 CNOV Office Visit (FAMPWS ) GOOD DE LUNA ([id number]) 1965 M Date Time Provider Department 12/13/24 11:40 AM MATHEW COBIAN FAMPWS During your visit today, we recorded the following information about you: Pulse Respiration Blood pressure Weight 70/minute 16/minute 120/78 102.1 kg Mathew Cobian MD 12/13/2024 3:20 PM Signed Chief Complaint Patient presents with: Ingrown Toenail: HPI Good De Luna is a 59 year old male who presents here today for nail problem. Pt states his left great toe nail is coming off, part of the nail is off. Has toe nail fungus. No injury to the toe. Past medical history, appointments, medications, allergies reviewed. Previous Medical History PAST MEDICAL HISTORY Diagnosis Date Acid reflux Anxiety state, unspecified Arthritis Cancer (HCC) Cerebral palsy (HCC) Congenital diplegia (HCC) Diverticulitis GERD (gastroesophageal reflux disease) JODEE on CPAP Sleep apnea 09/22/2008 Spinal stenosis Unspecified hypothyroidism Previous Surgical History PAST SURGICAL HISTORY Procedure Laterality Date COLONOSCOPY 05/13/2024 PAST SURGICAL HISTORY OF trigger finger procedure as a child TONSILLECTOMY HX TONSILLECTOMY PRIMARY/SECONDARY Tonsillectomy Family History FAMILY HISTORY Adopted: Yes Problem Relation Age of Onset Diabetes Mother Thyroid Maternal Grandmother Patient Allergies ALLERGIES No Known Allergies Current Medications Current Outpatient Medications on File Prior to Visit Medication Sig citalopram (CELEXA) 40 mg tablet Take 1 tablet by mouth once daily. levothyroxine (SYNTHROID) 150 mcg tablet Take 1 tablet by mouth once daily. omeprazole (PRILOSEC) 20 mg capsule take 1 capsule by mouth once daily cholecalciferol, vitamin D3, (VITAMIN D3 ORAL) Take 2,000 mcg by mouth once daily. CPAP Initiate CPAP @ 7 cm of water with humidification. Mask (per patient preference) optional chin strap (if indicated) , filters, tubing, humidifier and lifetime supplies. multivit-min/folic/vit K/lycop (MEN'S 50 PLUS MULTIVITAMIN ORAL) Take 1 tablet by mouth once daily. vitamin b complex capsule Take 1 capsule by mouth once daily. No current facility-administered medications on file prior to visit. Social History Social History Tobacco Use Smoking status: Former Current packs/day: 0.00 Average packs/day: 1 pack/day for 30.0 years (30.0 ttl pk-yrs) Types: Cigarettes Start date: 07/29/1993 Quit date: 07/29/2023 Years since quittin.3 Smokeless tobacco: Never Tobacco comments: Pt has cut back to 1/4 pack daily. Vaps off and on Vaping Use Vaping status: Some Days Substances: Nicotine Substance Use Topics Alcohol use: Yes Comment: 3/4 beers per week Drug use: No EXAM: BP 120/78 Pulse 70 Resp 16 Wt 102.1 kg (225 lb 1.4 oz) BMI 37.46 kg/m? General Appearance: Well appearing, alert, in no acute distress, well-hydrated, well nourished.. Left foot: Great toe nail thickened and cut back almost to nail bed.. Health Maintenance List HIV Screening Never done Hepatitis B Vaccine(1 of 3 - 19+ 3-dose series) Never done Shingrix Vaccine(1 of 2) Never done Pneumococcal Vaccine: 50+(1 of 1 - PCV) Never done Lung Cancer Screening due on 06/08/2022 Influenza Vaccine(Season Ended) due on 03/24/2025 Colorectal Cancer Screening due on 05/13/2025 Annual PCP Team Chronic Disease Visit due on 07/25/2025 Diabetes Screening due on 07/12/2027 DTaP,Tdap,Td Vaccine(3 - Td or Tdap) due on 08/28/2028 Lipid Screening due on 09/25/2028 Prostate Cancer Screening Discussion due on 05/03/2029 Hepatitis C Screening Completed Covid-19 Vaccine Completed Data reviewed none ASSESSMENT/PLAN: 1. Fungal infection of toenail - ICD9: 110.1, ICD10: B35.1 - CONSULT TO PODIATRY I agree with the Chief Complaint, ROS, and Past Histories independently gathered by the clinical faculty support coordinator and the remaining scribed note accurately describes my personal service to the patient. Medical Decision Making: Problems: Low: Acute, uncomplicated illness or injury Risk: Low: Low risk from testing/treatment Medical Decision Making Level: 3 - Low Mathew Cobian MD The documentation for this note was completed by Laura Whaley MA acting as scribe for Mathew Cobian MD. December 13, 2024 11:42 AM. Laura Whaley MA Allergies As of Date: 12/13/2024 (No Known Allergies) Date Reviewed: 12/13/2024 Reviewed by: Laura Whaley MA - Fully Assessed Reason for Visit: Ingrown Toenail [111] Cmt: Primary Visit Diagnosis:Fungal infection of toenail [B35.1] Order(s):CONSULT TO PODIATRY [9034] Order #: [id number]: 1 FUTURE Prescriptions as of 12/13/2024 - citalopram (CELEXA) 40 mg tablet Take 1 tablet by mouth once daily. - levothyroxine (SYNTHROID) 150 mcg tablet Take 1 tablet by mouth once daily. - omeprazole (PRILO (more content not included)... Normal [facility] LUNA ([id number]) 1965 M Date Time Provider Department 12/10/24 MATHEW COBIAN [facility] During your visit today, we recorded the following information about you: Uma Jett RN 12/10/2024 1:50 PM Signed Patient calls and states that he would like to start taking EGCG supplement for Arthritis/Joint Pain. Patient asking if this would be ok to take? Please review and advise, REBA Lawrence Mark D, MD 12/10/2024 2:42 PM Signed I think that would be OK to try MD Luigi Jimenez Rilee, MA 12/10/2024 2:56 PM Signed Call to pt and notified him of Providers response below. Pt verbalized understanding. Mick Youngblood MA Allergies As of Date: 12/10/2024 (No Known Allergies) Date Reviewed: 08/26/2024 Reviewed by: Keisha Ruggiero MA - Fully Assessed Reason for Visit: Patient Question [5017] Prescriptions as of 12/10/2024 - citalopram (CELEXA) 40 mg tablet Take 1 tablet by mouth once daily. - levothyroxine (SYNTHROID) 150 mcg tablet Take 1 tablet by mouth once daily. - omeprazole (PRILOSEC) 20 mg capsule take 1 capsule by mouth once daily - cholecalciferol, vitamin D3, (VITAMIN D3 ORAL) Take 2,000 mcg by mouth once daily. - CPAP Initiate CPAP @ 7 cm of water with humidification. Mask (per patient preference) optional chin strap (if indicated) , filters, tubing, humidifier and lifetime supplies. - multivit-min/folic/vit K/lycop (MEN'S 50 PLUS MULTIVITAMIN ORAL) Take 1 tablet by mouth once daily. - vitamin b complex capsule Take 1 capsule by mouth once daily. Problem List As Of Date 12/10/2024 Noted Resolved Sleep apnea [G47.30] 09/22/2008 Hypothyroidism [E03.9] 03/27/2009 Anxiety state [F41.1] 03/27/2009 Bilateral Hip Pain [M25.551, M25.552] 04/17/2009 SI (Sacroiliac) Joint Dysfunction [M53.3] 04/17/2009 Thoracic or lumbosacral neuritis or radiculitis*04/25/2014 Spinal stenosis of lumbar region [M48.061] 12/12/2017 Chronic bilateral low back pain with right-side*01/10/2018 Back pain [M54.9] 02/10/2019 Nicotine use disorder, F17.2 [F17.200] 02/11/2019 Cerebral palsy (HCC) [G80.9] Congenital diplegia (HCC) [G80.8] 05/27/2021 Spasticity [R25.2] 05/27/2021 Costochondritis [M94.0] 05/27/2021 Localized osteoporosis (Lequesne) [M81.6] 05/27/2021 Recurrent major depressive disorder, remission *10/17/2023 Prostate cancer (HCC) [C61] 10/17/2023 Diverticulitis [K57.92] 04/30/2024 Rectal bleeding [K62.5] 05/12/2024 Encounter Status:Closed by MICK YOUNGBLOOD on 12/10/24 Normal [facility] Emergency Department Summary on 11-05-2024 Emergency Department Summary [facility] Medical Records Department [address] [place] [address] Emergency Department Summary 11/05/24 MR#: [id number] Acct: [id number] Name: GOOD DE LUNA Rep #: [id number] : 1965 59 From: Salvatore Watkins MD PCP: Dr. Mathew Cobian MD Status:PRE ER Location: ED HPI History of Present Illness Chief Complaint: Dental Narrative Narrative: 59-year-old male past medical history of hypothyroidism, non-smoker, presents with half a day of hard palate/dental pain. He denies any fevers or chills. He is nauseated but has not vomited. He states that he feels a lump behind his front teeth, mainly on the left whenever he runs his tongue across that. This been going on for about a day. Today, he states he ran his finger over the area and brown liquid came out on his finger. He states that the area underneath his nose and behind his front teeth hurts. No exacerbating or alleviating factors. He states that he went to a dentist 6 months ago, and everything appeared normal. [facility] Medical History Alcohol abuse Anxiety History of trigger finger Alcohol abuse Chronic pain Smoker CPAP (continuous positive airway pressure) dependence Sleep apnea Cerebral palsy Home Medications ???Medication ???Instructions ???Recorded ???Last Taken ???Type omeprazole 20 mg capsule,delayed 20 mg PO DAILY GERD 02/05/1904/23 History release multivitamin 1 tab PO DAILY supplement 12/04/20 04/22/24 History acetaminophen 500 mg tablet 1,000 mg (2 x 500 mg) PO Q6H PRN 0 12/23/20 Unknown Rx PRN Pain Score 1-5 #0 tabs citalopram 40 mg tablet 40 mg PO DAILY #0 tabs 12/23/20 Rx lorazepam 1 mg tablet 1 mg PO Q8H PRN PRN Anxiety 04/22/24 History vitamin B complex 1 tab PO DAILY 02/27/22 04/22/24 H istory oxycodone-acetaminophen 5 mg-325 1 tab PO Q6H PRN pain 3 days #12 1 Unknown Rx mg tablet (Endocet) tabs clindamycin HCl 300 mg capsule 300 mg PO Q6H #40 CAPSULES 5 Unknown Rx (Cleocin HCl) levothyroxine 150 mcg tablet 150 mcg PO DAILY 11/05/24 Unknown History Allergy/AdvReac Type Severity Reaction Status Date / Time No Known Allergies Allergy Verified 11/05/24 18:14 Family History Other Cancer Diabetes Surgical History History of tonsillectomy H/O hand surgery Social History household members: other details: Roommate who does not help him cook or clean. Smoking Status: Current every day smoker tobacco type: cigarettes and e-cigarettes alcohol intake: current alcohol intake frequency: 3 or more drinks per day Alcohol type: hard liquor ROS ROS ED ROS Narrative Review of systems positive for pain on the roof of his mouth with lump behind front teeth. No fevers or chills. Positive nausea but no vomiting. Positive pain underneath nose and behind front teeth. EXAM Physical Exam Narrative Exam Narrative: Afebrile. Vital signs noted. Nontoxic-appearing. Cardiovascular examination reveals bradycardia. Lungs clear to auscultation bilaterally. Abdomen soft nontender with positive bowel sounds. Neurological examination nonfocal and nonlateralizing. Inspection of the mouth does not reveal noticeable dental caries. There is no fluctuance of the gingiva. No fluctuance of the hard palate. Behind his teeth there are a few rugae on the hard palate, but no palpable distention. Airway is patent, no drooling or trismus. No Kedar angina. Const Vital Signs: 11/05/24 18:14 Temperature 98 F Temperature Source Oral Pulse Rate 50 L Respiratory Rate 16 Blood Pressure 155/99 H Blood Pressure Mean 117 Pulse Ox 99 Oxygen Delivery Method Room Air MDM MDM MDM Narrative Medical decision making narrative: Differential diagnosis includes but not limited to gingivitis versus hard palate abscess versus dental abscess. I do not feel he requires any laboratory work or imaging. He is afebrile and hemodynamically stable. He was referred to both ENT and back to his dentist. I do feel antibiotics are indicated. He was started on his first dose of clindamycin, and prescription written to take 4 times a day for 10 days. I stressed the importance of follow-up with either ENT or his dentist within the next 3 to 5 days if not improving. Return instructions to the emergency department were reviewed. Disposition is discharged home in stable condition. History Record Review Discussion w/independent historian: Patient Discharge Plan Triage Chief Complaint: Dental ED Provider: Salvatore Watkins Dx/Rx/DC Orders Clinical Impression: Hard palate abscess, Mouth pain (more content not included)... Normal [facility] MRI PROSTATE WO/W IVCONon MRI PROSTATE WO/W IVCON * * *Final Report* * * DATE OF EXAM: Oct 28 2024 11:31AM [facility] 0751 - MRI PROSTATE WO/W IVCON / PROCEDURE REASON: Prostate cancer (HCC) * * * * Physician Interpretation * * * * EXAMINATION: MRI PELVIS WITHOUT AND WITH IV CONTRAST (MULTIPARAMETRIC PROSTATE MRI) CLINICAL HISTORY: 59 years old with prostate cancer on active surveillance. Previous biopsy: [id number] Grade Group 1 (GS 3 + 3) right knee and apex PSA: 1.21 ng/mL (04/2024) ; Prior therapy: None. TECHNIQUE: Multiparametric MRI of the prostate and pelvis performed on a 3T scanner utilizing phase pelvic coil. Sequences obtained: multiplanar T2-WI with small FOV; Axial DWI with multiple B-values and creation of ADC-maps; DCE T1-weighted images through the prostate obtained before, during and after the administration of intravenous gadolinium; prostate dimensions and volume were obtained using a semi-automated software (Spark). CONTRAST: IV: 9 cc of Elucirem. COMPARISON: MR Prostate 09/13/2021 and prior RESULT: Prostate: Dimensions: 4.5 x 3.4 x 4.2 cm corresponding to a volume of approximately 33 cc. Post biopsy hemorrhage: Absent Peripheral zone: Linear and/or wedge-shaped T2/ADC map hypointensities in the posterior peripheral zone (PI-RADS 2). No focal lesion Transition zone: There is transition zone hypertrophy, without focal abnormalities suspicious for clinically significant disease (PI-RADS 1). No focal lesion present. Neurovascular bundle: Unremarkable. Seminal vesicles: Unremarkable. Adjacent Organ Involvement: Not applicable. Lymph nodes: No enlarged pelvic lymph nodes. Bladder: Unremarkable. Pelvic bones: Sacroiliitis unchanged ill-defined sclerosis of the inferior left pubic ramus. No suspicious pelvic osseous lesions. Other Findings: None. IMPRESSION: PIRADS 2 increasing wedge-shaped signal abnormalities, no focal lesion. No new pelvic lymphadenopathy or suspicious osseous lesion. Number of targets created for MR/US fusion biopsy: Peripheral zone: 0 Transition zone: 0 If present, targets were numbered in order of level of suspicion for clinically significant prostate cancer (Danvers score 3 + 4 or higher). PI-RADS v2.1 Assessment Categories: PI-RADS 1: Clinically significant cancer is highly unlikely PI-RADS 2: Clinically significant cancer is unlikely PI-RADS 3: Clinically significant cancer is equivocal PI-RADS 4: Clinically significant cancer is likely PI-RADS 5: Clinically significant cancer is highly likely (V.05) Claims Representative: MARTIN Transcribe Date/Time: Oct 31 2024 11:00A Dictated by : THOMAS JAMES MD This examination was interpreted and the report reviewed and electronically signed by: THOMAS JAMES MD on Oct 31 2024 11:25AM EST [id number] Normal [facility] GOOD [place] LUNA ([id number]) 1965 M Date Time Provider Department 09/10/24 RAPHAEL CALDERON JR UROLMD During your visit today, we recorded the following information about you: Bibi Liu 09/10/2024 9:43 AM Signed Pt can't make his 11:10 appt today due to loss of transportation, his aide is his daughter and her children are sick. Pt is asking if there is any way he can have a virtual visit due to his immobility and dependence on transport. Thank you. Bibi Liu 09/10/2024 11:00 AM Signed Nurse Froilan spoke to pt and he is scheduled for an MRI and will make a new follow up. Pt is in agreement with this. Allergies As of Date: 09/10/2024 (No Known Allergies) Date Reviewed: 08/26/2024 Reviewed by: Keisha Ruggiero MA - Fully Assessed Reason for Visit: Appointment [186] Prescriptions as of 09/10/2024 - citalopram (CELEXA) 40 mg tablet Take 1 tablet by mouth once daily. - levothyroxine (SYNTHROID) 150 mcg tablet Take 1 tablet by mouth once daily. - omeprazole (PRILOSEC) 20 mg capsule take 1 capsule by mouth once daily - cholecalciferol, vitamin D3, (VITAMIN D3 ORAL) Take 2,000 mcg by mouth once daily. - CPAP Initiate CPAP @ 7 cm of water with humidification. Mask (per patient preference) optional chin strap (if indicated) , filters, tubing, humidifier and lifetime supplies. - multivit-min/folic/vit K/lycop (MEN'S 50 PLUS MULTIVITAMIN ORAL) Take 1 tablet by mouth once daily. - vitamin b complex capsule Take 1 capsule by mouth once daily. Problem List As Of Date 09/10/2024 Noted Resolved Sleep apnea [G47.30] 09/22/2008 Hypothyroidism [E03.9] 03/27/2009 Anxiety state [F41.1] 03/27/2009 Bilateral Hip Pain [M25.551, M25.552] 04/17/2009 SI (Sacroiliac) Joint Dysfunction [M53.3] 04/17/2009 Thoracic or lumbosacral neuritis or radiculitis*04/25/2014 Spinal stenosis of lumbar region [M48.061] 12/12/2017 Chronic bilateral low back pain with right-side*01/10/2018 Back pain [M54.9] 02/10/2019 Nicotine use disorder, F17.2 [F17.200] 02/11/2019 Cerebral palsy (HCC) [G80.9] Congenital diplegia (HCC) [G80.8] 05/27/2021 Spasticity [R25.2] 05/27/2021 Costochondritis [M94.0] 05/27/2021 Localized osteoporosis (Lequesne) [M81.6] 05/27/2021 Recurrent major depressive disorder, remission *10/17/2023 Prostate cancer (HCC) [C61] 10/17/2023 Diverticulitis [K57.92] 04/30/2024 Rectal bleeding [K62.5] 05/12/2024 Encounter Status:Closed by BIBI LIU on 09/10/24 [facility] CNOVon 08-26-2024 CNOV Office Visit (ORTHWS ) GOOD DE LUNA ([id number]) 1965 M Date Time Provider Department 08/26/24 10:30 AM TAMMIE BENITEZ During your visit today, we recorded the following information about you: Keisha Ruggiero MA 08/26/2024 2:11 PM Signed AMB ROOMING INTAKE FLOWSHEET DATA Pain Pain Level: 4 Pain Location: Leg-Right Description: Aching Duration Amount of Time: (ongoing) Frequency: Continuous Intervention/Comfort measure: Other: See comment (none) Patient here today for 5 weeks 2 days post fracture right fibula. New x-ray today. Tammie Benitez PA-C 08/26/2024 2:11 PM Signed Tammie Benitez PA-C Department of Orthopaedics Orthopaedics [address] [facility] [address] Dept: [phone] Dept August 26, 2024 CHIEF COMPLAINT: Established Patient and Follow Up of the Right Ankle. ASSESSMENT: S82.362K Other closed fracture of proximal end of right fibula with routine healing, subsequent encounter (primary encounter diagnosis) SUMMARY/PLAN: Patient presents with an injury to his right leg which occurred about 1 month ago. The patient was returning from his kitchen to enter his bedroom when his leg gave out. He had a proximal fibula fracture. The patient has cerebral palsy and ambulates with the assistance of a walker. Since his injury his pain has improved quite a bit, still having some lateral calf aching. Pain today is a 4 out of 10. Repeat x-rays show evidence of healing. We discussed having him continue with activity as tolerated. He can follow-up on as-needed basis. Exam: No tenderness palpation along the proximal fibula, no edema surrounding the proximal fibula. No ecchymosis is noted. Imaging: See Epic Mr. Good De Luna was advised as to contrast therapies and/or to take analgesics/anti-inflammator ies as needed and all contraindications were reviewed. Supporting Information Below: Medications: Current Outpatient Medications Medication Sig citalopram (CELEXA) 40 mg tablet Take 1 tablet by mouth once daily. levothyroxine (SYNTHROID) 150 mcg tablet Take 1 tablet by mouth once daily. omeprazole (PRILOSEC) 20 mg capsule take 1 capsule by mouth once daily cholecalciferol, vitamin D3, (VITAMIN D3 ORAL) Take 2,000 mcg by mouth once daily. multivit-min/folic/vit K/lycop (MEN'S 50 PLUS MULTIVITAMIN ORAL) Take 1 tablet by mouth once daily. vitamin b complex capsule Take 1 capsule by mouth once daily. CPAP Initiate CPAP @ 7 cm of water with humidification. Mask (per patient preference) optional chin strap (if indicated) , filters, tubing, humidifier and lifetime supplies. No current facility-administered medications for this visit. Allergies: Patient has no known allergies. This note was partially generated using [employer] voice recognition system, and there may be some incorrect words, spellings, and punctuation that were not noted in checking the note before saving. Tammie Benitez PA-C Referring Provider: TAMMIE BENITEZ [[id number]] Allergies As of Date: 08/26/2024 (No Known Allergies) Date Reviewed: 08/26/2024 Reviewed by: Keisha Ruggiero MA - Fully Assessed Reason for Visit: Established Patient [175] Follow Up [171] Primary Visit Diagnosis:Other closed fracture of proximal end of right fibula with routine healing, subsequent encounter [L18.487A] Prescriptions as of 08/26/2024 - citalopram (CELEXA) 40 mg tablet Take 1 tablet by mouth once daily. - levothyroxine (SYNTHROID) 150 mcg tablet Take 1 tablet by mouth once daily. - omeprazole (PRILOSEC) 20 mg capsule take 1 capsule by mouth once daily - cholecalciferol, vitamin D3, (VITAMIN D3 ORAL) Take 2,000 mcg by mouth once daily. - CPAP Initiate CPAP @ 7 cm of water with humidification. Mask (per patient preference) optional chin strap (if indicated) , filters, tubing, humidifier and lifetime supplies. - multivit-min/folic/vit K/lycop (MEN'S 50 PLUS MULTIVITAMIN ORAL) Take 1 tablet by mouth once daily. - vitamin b complex capsule Take 1 capsule by mouth once daily. Problem List As Of Date 08/26/2024 Noted Resolved Sleep apnea [G47.30] 09/22/2008 Hypothyroidism [E03.9] 03/27/2009 Anxiety state [F41.1] 03/27/2009 Bilateral Hip Pain [M25.551, M25.552] 04/17/2009 SI (Sacroiliac) Joint Dysfunction [M53.3] 04/17/2009 Thoracic or lumbosacral neuritis or radiculitis*04/25/2014 Spinal stenosis of lumbar region [M48.061] 12/12/2017 Chronic bilateral low back pain with right-side*01/10/2018 Back pain [M54.9] 02/10/2019 Nicotine use disorder, F17.2 [F17.200] 02/11/2019 Cerebral palsy (HCC) [G80.9] Congenital diplegia (HCC) [G80.8] 05/27/2021 Spasticity [R25.2] 05/27/2021 Costochondritis [M94.0] 05/27/2021 Localized osteoporosis (Lequesne) [M81.6] 05/27/2021 Recurrent major depressive disorder, remission *10/17/2023 Prostate cancer (HCC) [C61] (more content not included)... Normal [facility] XR TIBIA FIBULA 2V AP/LAT RT on 08-26-2024 XR TIBIA FIBULA 2V AP/LAT RT * * *Final Report* * * DATE OF EXAM: Aug 26 2024 10:53AM [id number] - XR TIBIA FIBULA 2V AP/LAT RT / PROCEDURE REASON: fx of fibula * * * * Physician Interpretation * * * * PROCEDURE: Right tibia/fibula INDICATION: fx of fibula.fx of proximal fibula x 1 month ago. TECHNIQUE: XR TIBIA FIBULA 2V AP/LAT RT COMPARISON: 07/29/2024 FINDINGS: Significant interval callus formation at the fibular neck fracture with healing. Alignment remains satisfactory and unchanged. No acute osseous abnormality. Joint spaces are maintained. IMPRESSION: Healing fibular neck fracture Claims Representative: [facility] Transcribe Date/Time: Aug 28 2024 9:14A Dictated by : WENDI MIRANDA MD This examination was interpreted and the report reviewed and electronically signed by: WENDI MIRANDA MD on Aug 28 2024 9:15AM EST [id number] Normal [facility] XR Tibia and Fibula - right AP and Lateralon 08-01-2024 IMPRESSION: Nondisplaced fracture of the neck of the right fibula Claims Representative: [facility] Transcribe Date/Time: Aug 01 2024 4:07P Dictated by : SHANELL GORE MD This examination was interpreted and the report reviewed and electronically signed by: SHANELL GORE MD on Aug 01 2024 4:10PM EST DIVISION OF RADIOLOGY * * *Final Report* * * DATE OF EXAM: Jul 29 2024 4:28PM [id number] - XR TIBIA FIBULA 2V AP/LAT RT / PROCEDURE REASON: Other closed fracture of proximal end of right fibula, initial encounter * * * * Physician Interpretation * * * * EXAMINATION: XR TIBIA FIBULA 2V AP/LAT RT CLINICAL HISTORY: Right lower extremity pain after fall Technique: XR TIBIA FIBULA 2V AP/LAT RT -- RIGHT with 2 views on 2 images Comparison: CT right lower extremity 07/22/2024 RESULT: Nondisplaced fracture of the neck of the right fibula. No dislocation. Joint spaces are maintained. DIVISION OF RADIOLOGY Provider, [facility] - 08/01/2024 * * *Final Report* * * DATE OF EXAM: Jul 29 2024 4:28PM [id number] - XR TIBIA FIBULA 2V AP/LAT RT / PROCEDURE REASON: Other closed fracture of proximal end of right fibula, initial encounter * * * * Physician Interpretation * * * * EXAMINATION: XR TIBIA FIBULA 2V AP/LAT RT CLINICAL HISTORY: Right lower extremity pain after fall Technique: XR TIBIA FIBULA 2V AP/LAT RT -- RIGHT with 2 views on 2 images Comparison: CT right lower extremity 07/22/2024 RESULT: Nondisplaced fracture of the neck of the right fibula. No dislocation. Joint spaces are maintained. IMPRESSION IMPRESSION: Nondisplaced fracture of the neck of the right fibula Claims Representative: [facility] Transcribe Date/Time: Aug 01 2024 4:07P Dictated by : SHANELL GORE MD This examination was interpreted and the report reviewed and electronically signed by: SHANELL GORE MD on Aug 01 2024 4:10PM [facility] XR Tibia and Fibula - right AP and LateralOrdered By: Ccabilio Provider on 08-01-2024 [facility] CNOVon 07-29-2024 CNOV Office Visit (ORTHWS ) GOOD DE LUNA ([id number]) 1965 M Date Time Provider Department 07/29/24 3:30 PM TAMMIE BENITEZ During your visit today, we recorded the following information about you: Keisha Ruggiero MA 08/02/2024 8:23 AM Signed AMB ROOMING INTAKE FLOWSHEET DATA Risk Screening Do you have concerns about personal safety or safety in the home?: No Pain Pain Level: 5 Pain Location: (right lower leg) Description: Aching, Sharp Duration Amount of Time: 1 Duration Units: Weeks Frequency: Continuous Intervention/Comfort measure: Other: See comment (none) Tammie Benitez PA-C 08/02/2024 8:23 AM Signed Tammie Benitez PA-C Department of Orthopaedics Orthopaedics [address] [place] [id number] Dept: [phone] Dept July 29, 2024 CHIEF COMPLAINT: New and Fracture of the Right Ankle Mr. Good De Luna is a 59 year old male who presents with an injury to his right lower extremity which occurred about 1 week ago. Patient's leg gave out when he was turning from his kitchen to enter his bedroom. He does not recall the exact mechanism of injury. He was seen at [facility] a few days after the injury, he had an x-ray of the right lower extremity which is negative, he had a CT scan showing a proximal fibula fracture. His pain today is a 5 out of 10 aching along the lateral aspect of the right lower extremity. The patient has cerebral palsy, he ambulates with the assistance of a walker. He has been relying more in a wheelchair since the injury. He denies any previous right ankle or right lower extremity injuries. ASSESSMENT: S82.831A Other closed fracture of proximal end of right fibula, initial encounter (primary encounter diagnosis) PLAN: Continue to weight bear as tolerated, can wrap knee/calf area with kinjal wrap for comfort if needed. Ice and elevation for pain control. Follow up in 3-4 weeks with repeat xray. Will continue to monitor patient for Other closed fracture of proximal end of right fibula, initial encounter (primary encounter diagnosis), patient to schedule visit as per follow up discussed. Mr. Good De Luna was advised as to contrast therapies and/or to take analgesics/anti-inflammator ies as needed and all contraindications were reviewed. OBJECTIVE: Mr. Good De Luna is a pleasant 59 year old in no apparent distress. Gen:There were no vitals taken for this visit. nl development, non obese, no deformities ENT: Normocephalic, normal hearing, moist mucosa CV: Pulses:DP/PT= 2+ and symmetric, capillary refill < 2 secs, no peripheral edema/varicosities Skin: no rash, bruising or lesions. Good turgor. Psych: cooperative and appropriate, alert and oriented x 3, good mood and affect. Musculoskeletal: Patient is tenderness palpation along the proximal fibula, there is some mild edema along the lateral aspect of the knee, no ecchymosis noted. Patient is nontender to palpation along the lateral malleolus. Imaging: * * *Final Report* * * DATE OF EXAM: Jul 29 2024 4:28PM [id number] - XR TIBIA FIBULA 2V AP/LAT RT / PROCEDURE REASON: Other closed fracture of proximal end of right fibula, initial encounter * * * * Physician Interpretation * * * * EXAMINATION: XR TIBIA FIBULA 2V AP/LAT RT CLINICAL HISTORY: Right lower extremity pain after fall Technique: XR TIBIA FIBULA 2V AP/LAT RT -- RIGHT with 2 views on 2 images Comparison: CT right lower extremity 07/22/2024 RESULT: Nondisplaced fracture of the neck of the right fibula. No dislocation. Joint spaces are maintained. IMPRESSION IMPRESSION: Nondisplaced fracture of the neck of the right fibula Claims Representative: PSCB Transcribe Date/Time: Aug 01 2024 4:07P Dictated by : SHANELL GORE MD This examination was interpreted and the report reviewed and electronically signed by: SHANELL GORE MD on Aug 01 2024 4:10PM EST Supporting Subjective Information Below: Past Surgical History: PAST SURGICAL HISTORY Procedure Laterality Date COLONOSCOPY 05/13/2024 PAST SURGICAL HISTORY OF trigger finger procedure as a child TONSILLECTOMY HX TONSILLECTOMY PRIMARY/SECONDARY Tonsillectomy Medications: Current Outpatient Medications Medication Sig LORazepam (ATIVAN) 0.5 mg Take 1-2 tablets by mouth once daily as needed for up to 30 days. levothyroxine (SYNTHROID) 150 mcg tablet Take 1 tablet by mouth once daily. omeprazole (PRILOSEC) 20 mg capsule take 1 capsule by mouth once daily cholecalciferol, vitamin D3, (VITAMIN D3 ORAL) Take 2,000 mcg by mouth once daily. citalopram (CELEXA) 40 mg tablet Take 1 tablet by mouth once daily. multivit-min/folic/vit K/lycop (MEN'S 50 PLUS MULTIVITAMIN ORAL) Take 1 tablet by mouth once daily. vitamin b complex capsule Take 1 capsule by mouth once daily. CPAP Initiate CPAP @ 7 cm o (more content not included)... Normal [facility] XR TIBIA FIBULA 2V AP/LAT RT on 07-29-2024 XR TIBIA FIBULA 2V AP/LAT RT * * *Final Report* * * DATE OF EXAM: Jul 29 2024 4:28PM [id number] - XR TIBIA FIBULA 2V AP/LAT RT / PROCEDURE REASON: Other closed fracture of proximal end of right fibula, initial encounter * * * * Physician Interpretation * * * * EXAMINATION: XR TIBIA FIBULA 2V AP/LAT RT CLINICAL HISTORY: Right lower extremity pain after fall Technique: XR TIBIA FIBULA 2V AP/LAT RT -- RIGHT with 2 views on 2 images Comparison: CT right lower extremity 07/22/2024 RESULT: Nondisplaced fracture of the neck of the right fibula. No dislocation. Joint spaces are maintained. IMPRESSION: Nondisplaced fracture of the neck of the right fibula Claims Representative: PSCB Transcribe Date/Time: Aug 01 2024 4:07P Dictated by : SHANELL GORE MD This examination was interpreted and the report reviewed and electronically signed by: SHANELL GORE MD on Aug 01 2024 4:10PM EST [id number] Normal [facility] XR Tibia and Fibula - right AP and Lateralon 07-29-2024 Radiology Study observation (narrative) [facility] CNCOon 07-25-2024 CNCO Letter Text Normal [facility] CNOVon 07-25-2024 CNOV Office Visit (FAMPWS ) DE LUNAGOOD BATES ([id number]) 1965 M Date Time Provider Department 07/25/24 10:40 AM MATHEW COBIAN FAMPWS During your visit today, we recorded the following information about you: Pulse Respiration Blood pressure 64/minute 18/minute 132/84 Mathew Cobian MD 07/25/2024 11:12 AM Signed Chief Complaint Patient presents with: Hospital Follow Up HPI Good De Luna is a 59 year old male who presents here today for ER Follow Up.. Pt was in [facility] ER on 07/22/24 for closed fx of fibula proximal right. Advised to follow up with Ortho and PCP. He was discharged home on oxycodone-acetaminophen [Endocet] 5-325 mg tablet 1 every 6 hours prn and Zofran prn nausea. Pt is currently scheduled with Ortho on Monday. Using a walker to ambulate. Currently not wearing any braces. Reports this occurred after a fall. Was seen on 07/22/24 due to increased amount of pain. At this time he's using OTC Aleve and anti-inflammatories. Tends to use OTC medication vs pain medication due to the prescription medication making him loopy. Is requesting a letter for upcoming court date on Monday for rent escrow, due to Landlord not doing repairs and now repaying him his security deposit back. He's now scheduled for medical appt's for his prostate cancer (MRI) and now Ortho appt due to fx and needing to keep appt. Has a fax number to fax letter. Fax number [phone], ATTN: Karie. Case #: [id number]. Notes some sinus drainage and cough, wondering if he needs an abx. Below copied from Care Everywhere: History of Present Illness Chief Complaint: Lower Extremity Injury Narrative Narrative: Patient is a 59-year-old male with a past medical history of of cerebral palsy, JODEE on CPAP, anxiety who presents to the emerged part with chief complaint of right lower extremity pain. Patient states that on Monday he was walking his leg gave out and he had pain in the right side of his leg. He states that he went to [facility] had an x-ray obtained and was told that everything was normal. He states that he is having significant amount of pain still therefore he came here further evaluation management. He states he has been ambulating with a walker at home secondary to the pain. Medical decision making narrative: Patient is a 59-year-old male who presented to the emergency department the chief complaint of right knee pain. Patient had a x-ray performed prior to my evaluation this was reviewed by myself and by radiology. On the differential diagnose includes but limited to tibial plateau fracture, fibular fracture, l lateral collateral ligament injury. Once workup is obtained reviewed he will bereevaluated. Patient's x-ray reviewed once again by myself and by radiology showed no acute findings. Given the patient is still having significant pain we will add a CT of his right knee down through his ankle joint on. That this was reviewed and showed a fracture at the proximal fibula. Called and discussed case with on-call orthopedic surgeon Dr. Forrest who states that the patient can continue to use his walker and do protected weightbearing and follow-up in his office by the end of the week. I gave the contact information of the patient. Patient be given a short course of Percocet and Zofran for severe pain he is otherwise to use Tylenol and ibuprofen for mild to moderate pain. He he was encouraged return with worsening symptoms or concerns. He is agreeable to plan he would like to go home all question concerns answered he is discharged home in stable condition. Past medical history, appointments, medications, allergies reviewed. Previous Medical History PAST MEDICAL HISTORY Diagnosis Date Acid reflux Anxiety state, unspecified Arthritis Cancer (HCC) Cerebral palsy (HCC) Congenital diplegia (HCC) Diverticulitis GERD (gastroesophageal reflux disease) JODEE on CPAP Sleep apnea 09/22/2008 Spinal stenosis Unspecified hypothyroidism Previous Surgical History PAST SURGICAL HISTORY Procedure Laterality Date COLONOSCOPY 05/13/2024 PAST SURGICAL HISTORY OF trigger finger procedure as a child TONSILLECTOMY HX TONSILLECTOMY PRIMARY/SECONDARY Tonsillectomy Family History FAMILY HISTORY Adopted: Yes Problem Relation Age of Onset Diabetes Mother Thyroid Maternal Grandmother Patient Allergies ALLERGIES No Known Allergies Current Medications Current Outpatient Medications on File Prior to Visit Medication Sig LORazepam (ATIVAN) 0.5 mg Take 1-2 tablets by mouth once daily as needed for up to 30 days. levothyroxine (SYNTHROID) 150 mcg tablet Take 1 tablet by mouth once daily. omeprazole (PRILOSEC) 20 mg capsule take 1 capsule by mouth once daily cholecalciferol, vitamin D3, (VITAMIN D3 ORAL) Take 2,000 mcg by mouth once daily. citalopram (CELEXA) 40 mg table (more content not included)... Normal [facility] Lizzy 07-23-2024 PATTIEN Telephone (FAMPWS) GOOD DE LUNA ([id number]) 1965 Date Time Provider Department 07/23/24 MATHEW COBIAN During your visit today, we recorded the following information about you: Ashlyn London RN 07/23/2024 12:37 PM Signed Pt scheduled [facility] ER f/u. 07-22-24. Reports has closed fx of fibula proximal right, and instructed to f/u with pcp and also ortho by the end of the week. Transferred to Ortho per pt request. Sofia Chung MA 07/23/2024 12:52 PM Signed Patient transferred. Patient states he was told by [facility] ED he has a fracture and needs to be seen by orthopedics by Monday. Patient unable to stay on hold for scheduling. Please advise TAWANNA Del Rio Amy M, MA 07/23/2024 1:35 PM Signed I called and spoke with the patient. Advised no providers in the [place] office until 07/29/2024. Patient scheduled appointment. Allergies As of Date: 07/23/2024 (No Known Allergies) Date Reviewed: 07/12/2024 Reviewed by: Rola Riojas LPN - Fully Assessed Reason for Visit: [facility] ER f/u [Other] Prescriptions as of 07/23/2024 - LORazepam (ATIVAN) 0.5 mg Take 1-2 tablets by mouth once daily as needed for up to 30 days. - levothyroxine (SYNTHROID) 150 mcg tablet Take 1 tablet by mouth once daily. - omeprazole (PRILOSEC) 20 mg capsule take 1 capsule by mouth once daily - cholecalciferol, vitamin D3, (VITAMIN D3 ORAL) Take 2,000 mcg by mouth once daily. - citalopram (CELEXA) 40 mg tablet Take 1 tablet by mouth once daily. - CPAP Initiate CPAP @ 7 cm of water with humidification. Mask (per patient preference) optional chin strap (if indicated) , filters, tubing, humidifier and lifetime supplies. - multivit-min/folic/vit K/lycop (MEN'S 50 PLUS MULTIVITAMIN ORAL) Take 1 tablet by mouth once daily. - vitamin b complex capsule Take 1 capsule by mouth once daily. Problem List As Of Date 07/23/2024 Noted Resolved Sleep apnea [G47.30] 09/22/2008 Hypothyroidism [E03.9] 03/27/2009 Anxiety state [F41.1] 03/27/2009 Bilateral Hip Pain [M25.551, M25.552] 04/17/2009 SI (Sacroiliac) Joint Dysfunction [M53.3] 04/17/2009 Thoracic or lumbosacral neuritis or radiculitis*04/25/2014 Spinal stenosis of lumbar region [M48.061] 12/12/2017 Chronic bilateral low back pain with right-side*01/10/2018 Back pain [M54.9] 02/10/2019 Nicotine use disorder, F17.2 [F17.200] 02/11/2019 Cerebral palsy (HCC) [G80.9] Congenital diplegia (HCC) [G80.8] 05/27/2021 Spasticity [R25.2] 05/27/2021 Costochondritis [M94.0] 05/27/2021 Localized osteoporosis (Lequesne) [M81.6] 05/27/2021 Recurrent major depressive disorder, remission *10/17/2023 Prostate cancer (HCC) [C61] 10/17/2023 Diverticulitis [K57.92] 04/30/2024 Rectal bleeding [K62.5] 05/12/2024 Encounter Status:Closed by Ashlyn LONDON on 07/23/24 Normal [facility] Emergency Department Summary on 07-22-2024 Emergency Department Summary [facility] Medical Records Department [address] [place] [id number] Emergency Department Summary 07/22/24 MR#: [id number] Acct: [id number] Name: GOOD DE LUNA Rep #: [id number] : 1965 59 From: Franklyn Donaldson DO PCP: Dr. Mathew Cobian MD Status:REG ER Location: ED HPI History of Present Illness Chief Complaint: Lower Extremity Injury Narrative Narrative: Patient is a 59-year-old male with a past medical history of of cerebral palsy, JODEE on CPAP, anxiety who presents to the emerged part with chief complaint of right lower extremity pain. Patient states that on Monday he was walking his leg gave out and he had pain in the right side of his leg. He states that he went to [facility] had an x-ray obtained and was told that everything was normal. He states that he is having significant amount of pain still therefore he came here further evaluation management. He states he has been ambulating with a walker at home secondary to the pain. [facility] Medical History Alcohol abuse Anxiety History of trigger finger Alcohol abuse Chronic pain Smoker CPAP (continuous positive airway pressure) dependence Sleep apnea Cerebral palsy Home Medications ???Medication ???Instructions ???Recorded ???Last Taken ???Type omeprazole 20 mg capsule,delayed 20 mg PO DAILY GERD 02/05/19 04/23/24 History release multivitamin 1 tab PO DAILY supplement 12/04/20 04/22/24 History acetaminophen 500 mg tablet 1,000 mg (2 x 500 mg) PO Q6H PRN 12/23/20 Unknown Rx PRN Pain Score 1-5 #0 tabs citalopram 40 mg tablet 40 mg PO DAILY #0 tabs 12/23/20 04/23/24 Rx lorazepam 1 mg tablet 1 mg PO Q8H PRN PRN Anxiety 02/27/22 04/22/24 History vitamin B complex 1 tab PO DAILY 02/27/22 04/22/24 History levothyroxine 175 mcg tablet 175 mcg PO DAILY 09/26/23 04/22/24 History amoxicillin 500 mg-potassium 1 tab PO Q12H 7 days #14 tabs 04/23/24 Unknown Rx clavulanate 125 mg tablet (Augmentin) ondansetron 4 mg disintegrating 4 mg PO Q6H PRN nausea and 07/22/24 Unknown Rx tablet vomiting #30 tabs oxycodone-acetaminophen 5 mg-325 1 tab PO Q6H PRN pain 3 days #12 07/22/24 Unknown Rx mg tablet (Endocet) tabs Allergy/AdvReac Type Severity Reaction Status Date / Time No Known Allergies Allergy Verified 07/22/24 15:33 Family History Other Cancer Diabetes Surgical History History of tonsillectomy H/O hand surgery Social History household members: other details: Roommate who does not help him cook or clean. Smoking Status: Current every day smoker tobacco type: cigarettes and e-cigarettes alcohol intake: current alcohol intake frequency: 3 or more drinks per day Alcohol type: hard liquor ROS ROS ED ROS Narrative Constitutional: Denies any fevers, chills, headaches, lightness, dizziness Neurological: Denies any numbness, weakness, tingling Musculoskeletal: Complains of right knee pain as noted above Skin: Denies any rashes or lesions EXAM Physical Exam Narrative Exam Narrative: General: Patient sitting in wheelchair in the hallway resting comfortably did not appear to be in acute distress Head: Atraumatic, normocephalic Eyes: PERRL body, EOMI bilateral, no conjunctival injection noted Neck: Soft, supple, trachea Cardiovascular: Regular rate and rhythm Respiratory: Clear to auscultation bilaterally Musculoskeletal: Patient has tenderness to palpation of the lateral aspect of his right knee he does have full range of motion of his right knee with minimal pain noted laterally. No pain to palpation distally all other bony prominences palpated joints taken full range of motion no pain elicited Extremities: DP pulses +2/4 in the bilateral lower extremities, compartment soft compressible, +4/5 strength noted in the bilateral upper and lower extremities Neurological: Patient following commands knew that he was at [facility] years 2023. Sensation grossly intact Skin: Warm, dry, intact no rashes or lesions noted Const Vital Signs: 07/22/24 15:33 07/22/24 19:56 Temperature 98 F Temperature Source Oral Pulse Rate 62 55 L Respiratory Rate 16 16 Blood Pressure 124/77 H 122/70 H Blood Pressure Mean 92 87 Pulse Ox 99 98 Oxygen Delivery Method Room Air Room Air MDM MDM MDM Narrative Medical decision making narrative: Patient is a 59-year-old male who presented to the emergency department the chief complaint of right knee pain. Patient had a x-ray performed prior to my evaluation this was reviewed by myself and by radiology. On the differential diagnose includes but limited to t (more content not included)... Normal [facility] Extremity Lower without Cont raon 07-22-2024 Extremity Lower without Contra [facility] Imaging Services [address] [place] [place], [place] [address] Extremity Lower without Contra MR#: [id number] Acct: [id number] Name: GOOD DE LUNA Rep #: [id number] : 1965 M 59 From: Ang Triana DO PCP: Dr. Mathew Cobian MD Status: REG ER Study: Extremity Lower without Contra Date of Exam: Exam# [id number] Ordering Dr: Franklyn Donaldson DO [id number] CT RIGHT LOWER EXTREMITY WITH 3-D IMAGING CLINICAL INDICATION: continued pain -- right knee and tib fib proximal TECHNIQUE: Axial CT images of the RIGHT lower extremity was performed IV contrast material. Coronal and sagittal reformats were provided. The protocol utilizes one or more of the following dose reduction techniques: automated exposure control, adjustment of mA and/or kV according to patient size,and/or use of iterative reconstruction technique. RADIATION DOSAGE (If Supplied By Facility): CTDIvol = ( 15.35 ) mGy, DLP = ( 1291.83 ) mGycm COMPARISON: FINDINGS: Bones: Nondisplaced fracture at the proximal fibula. No lytic or blastic osseous masses. Soft Tissues: The deep soft tissue structures are unremarkable. The superficial soft tissues are unremarkable without evidence of edema, hematoma, or foreign body. CT/Extremity Lower without Contra IMPRESSION: Fracture at the proximal fibula. Electronically Signed: Ang Triana DO at 20:07 EST Reading Location ID and State: [facility] / [place] Tel [phone], Service support , CC: Dr. Mathew Cobian MD; Dr. Franklyn Donaldson DO Claims Representative: Signed Normal [facility] Tibia Fibula 2 Viewson 07-22 Tibia Fibula 2 Views [facility] Imaging Services [address] [place] [address] Tibia Fibula 2 Views MR#: [id number] Acct: [id number] Name: GOOD DE LUNA Rep #: [id number] : 1965 M 59 From: Ang Triana DO PCP: Dr. Mathew Cobian MD Status: PRE ER Study: Tibia Fibula 2 Views Date of Exam: 07/22/24 Exam# [id number] Ordering Dr: Jordan Arndt [id number] INDICATION: PAIN EXAMINATION/TECHNIQUE: X-RAY - RIGHT XR Tibia/Fibula 2 Views 2 VIEWS COMPARISON: FINDINGS: SOFT TISSUES: No soft tissue swelling or gas. No radiopaque foreign body. BONES/JOINTS: No acute fracture or subluxation.. Normal alignment. Preservation of the joint space.. No sclerotic or destructive changes observed. RAD/Tibia Fibula 2 Views IMPRESSION: Negative. Electronically Signed: Ang Triana DO at 17:51 EST Reading Location ID and State: [facility] / [place] Tel [phone], Service support , CC: Dr. Mathew Cobian MD; ED PHYSICIAN PROVIDER Claims Representative: Signed Normal [facility] XR ANKLE AND FOOT 6 VIEWS [facility] 07-20-2024 XR ANKLE AND FOOT 6 VIEWS RIGHT ORIGINAL EXAMINATION: 6 XRAY VIEWS OF THE RIGHT FOOT AND ANKLE; TWO XRAY VIEWS OF THE RIGHT TIBIA/FIBULA 07/20/2024 3:35 pm COMPARISON: None. HISTORY: ORDERING SYSTEM PROVIDED HISTORY: Reason for Exam: fall, pain FINDINGS: The underlying osseous structures appear well mineralized without evidence of fracture or dislocation. The ankle mortise is well maintained. Mild soft tissue swelling is seen overlying the bilateral malleoli. No radiopaque foreign body is seen. The visualized tibia and fibula are acutely intact. IMPRESSION: No acute fracture or dislocation. Mild soft tissue swelling. Interpreted by: Larry Zarate MD Preliminary Report By: Larry Zarate MD Electronically signed By Larry Zarate MD Dictated Date: 07/20/2024 3:54:33 PM Prelim Date: 07/20/2024 3:56:28 PM Sign Date: 07/20/2024 3:56:28 PM Ordering Provider: [facility] XR TIBIA/FIBULA 2 VIEWS LAUREN Valles 07-20-2024 XR TIBIA/FIBULA 2 VIEWS RIGHT ORIGINAL EXAMINATION: 6 XRAY VIEWS OF THE RIGHT FOOT AND ANKLE; TWO XRAY VIEWS OF THE RIGHT TIBIA/FIBULA 07/20/2024 3:35 pm COMPARISON: None. HISTORY: ORDERING SYSTEM PROVIDED HISTORY: Reason for Exam: fall, pain FINDINGS: The underlying osseous structures appear well mineralized without evidence of fracture or dislocation. The ankle mortise is well maintained. Mild soft tissue swelling is seen overlying the bilateral malleoli. No radiopaque foreign body is seen. The visualized tibia and fibula are acutely intact. IMPRESSION: No acute fracture or dislocation. Mild soft tissue swelling. Interpreted by: Larry Zarate MD Preliminary Report By: Larry Zarate MD Electronically signed By Larry Zarate MD Dictated Date: 07/20/2024 3:54:33 PM Prelim Date: 07/20/2024 3:56:28 PM Sign Date: 07/20/2024 3:56:28 PM Ordering Provider: [facility] 07-18-2024 MAGGIE Telephone (FAMLaryWS) GOOD DE LUNA ([id number]) 1965 M Date Time Provider Department 07/18/24 BRIAN AHMADI [facility] During your visit today, we recorded the following information about you: Brian Ahmadi APRN.[facility] 07/18/2024 9:06 AM Signed Please let the patient know that his labs looked fine with the exception of his TSH, which was slightly elevated. In our encounter, the patient mentioned that he had been missing some doses of his levothyroxine. I would recommend that he try taking consistently over the next 6 weeks and repeat TSH in 6 weeks. Labs placed Brian Ahmadi APRN.Levi Peterson LPN 07/18/2024 12:29 PM Signed Left message for pt to contact office. ANGELA Cook Rilee, MA 07/22/2024 12:56 PM Signed Mychart message sent to pt asking for a return call to office regarding his recent lab results. Pt notified office has attempted to reach him with VM left. TAWANNA Tierney M Robin, RN 07/23/2024 12:53 PM Signed Pt phoned in for another reason and given provider's message below with verbalized understanding. Pt agreeable. Allergies As of Date: 07/18/2024 (No Known Allergies) Date Reviewed: 07/12/2024 Reviewed by: Rola Riojas LPN - Fully Assessed Reason for Visit: Results [95] Primary Visit Diagnosis:Hypothyroidism, unspecified type [E03.9] Order(s):THYROID STIMULATING HORMONE [TS] Order #: [id number] FUTURE Prescriptions as of 07/23/2024 - LORazepam (ATIVAN) 0.5 mg Take 1-2 tablets by mouth once daily as needed for up to 30 days. - levothyroxine (SYNTHROID) 150 mcg tablet Take 1 tablet by mouth once daily. - omeprazole (PRILOSEC) 20 mg capsule take 1 capsule by mouth once daily - cholecalciferol, vitamin D3, (VITAMIN D3 ORAL) Take 2,000 mcg by mouth once daily. - citalopram (CELEXA) 40 mg tablet Take 1 tablet by mouth once daily. - CPAP Initiate CPAP @ 7 cm of water with humidification. Mask (per patient preference) optional chin strap (if indicated) , filters, tubing, humidifier and lifetime supplies. - multivit-min/folic/vit K/lycop (MEN'S 50 PLUS MULTIVITAMIN ORAL) Take 1 tablet by mouth once daily. - vitamin b complex capsule Take 1 capsule by mouth once daily. Problem List As Of Date 07/18/2024 Noted Resolved Sleep apnea [G47.30] 09/22/2008 Hypothyroidism [E03.9] 03/27/2009 Anxiety state [F41.1] 03/27/2009 Bilateral Hip Pain [M25.551, M25.552] 04/17/2009 SI (Sacroiliac) Joint Dysfunction [M53.3] 04/17/2009 Thoracic or lumbosacral neuritis or radiculitis*04/25/2014 Spinal stenosis of lumbar region [M48.061] 12/12/2017 Chronic bilateral low back pain with right-side*01/10/2018 Back pain [M54.9] 02/10/2019 Nicotine use disorder, F17.2 [F17.200] 02/11/2019 Cerebral palsy (HCC) [G80.9] Congenital diplegia (HCC) [G80.8] 05/27/2021 Spasticity [R25.2] 05/27/2021 Costochondritis [M94.0] 05/27/2021 Localized osteoporosis (Lequesne) [M81.6] 05/27/2021 Recurrent major depressive disorder, remission *10/17/2023 Prostate cancer (HCC) [C61] 10/17/2023 Diverticulitis [K57.92] 04/30/2024 Rectal bleeding [K62.5] 05/12/2024 Encounter Status:Closed by Ashlyn LONDON on 07/23/24 Normal [facility] Basic metabolic 2000 panelon 07-12-2024 Anion gap [Moles/Vol] 14 mmol/L Normal 8-15 [facility] Comment on above: Order Comment: Speci men Type: BLOOD SPECIMENOrdering Facility: [facility] Address: [address] [place] [address] Performed By: #### 1 9123-9, 3016-3, 43069-4 ####[facility] LABCLIA [id number] [place] [address] [place] Calcium [Mass/Vol] 9.3 mg/dL Normal 8.5-10.2 [facility] Comment on above: Order Comment: Speci men Type: BLOOD SPECIMENOrdering Facility: [facility] Address: [address] [place], [place] [id number] Performed By: #### 1 9123-9, 3016-3, 73590-9 ####[facility] LABCLIA [id number] [place] [address] [place] Chloride [Moles/Vol] 104 mmol/L Normal 98-107 [facility] Comment on above: Order Comment: Speci men Type: BLOOD SPECIMENOrdering Facility: [facility] Address: [address] [place] [address] Performed By: #### 1 9123-9, 3016-3, 80005-5 ####[facility] LABIA [id number] [place] [address] [place] CO2 [Moles/Vol] 21 mmol/L Low 22-30 [facility] Comment on above: Order Comment: Speci men Type: BLOOD SPECIMENOrdering Facility: [facility] Address: [address] [place] [address] Performed By: #### 1 9123-9, 3016-3, 70286-6 ####[facility] LABIA [id number] [place] [address] [place] Creatinine [Mass/Vol] 1.01 mg/dL Normal 0.73-1.22 [facility] Comment on above: Order Comment: Speci men Type: BLOOD SPECIMENOrdering Facility: [facility] Address: [address] [place] [address] Performed By: #### 1 9123-9, 3016-3, 29576-7 ####[facility] LABIA [id number] [place] [address] [place] Creatinine and Glomerular filtration rate.predicted panel (S/P/Bld) 87 mL/min/1.73m??? Normal >=60 [facility] Comment on above: Order Comment: Speci men Type: BLOOD SPECIMENOrdering Facility: [facility] Address: [address] [place] [address] Result Comment: Heidi mated Glomerular Filtration Rate (eGFR) is calculated using the 2020 CKD-EPI creatinine equation. This equation utilizes serum creatinine, sex, and age as parameters. The creatinine assay has traceable calibration to isotope dilution-mass spectrometry. Refer to KDIGO guidelines for clinical interpretation. In patients with unstable renal function, e.g. those with acute kidney injury, the eGFR may not accurately reflect actual GFR. Performed By: #### 1 9123-9, 3015-3, 79085-2 ####[facility] LABCLIA [id number] [address] [address] [place] Glucose [Mass/Vol] 95 mg/dL Normal 74-99 [facility] Comment on above: Order Comment: Mejia mckenzie Type: BLOOD SPECIMENOrdering Facility: [facility] Address: [address] [place] [address] Result Comment: The [place] Diabetes Association (ADA) provides guidance for cutoff values for fasting glucose and random glucose. The ADA defines fasting as no caloric intake for at least 8 hours. Fasting plasma glucose results between 100 to 125 mg/dL indicate increased risk for diabetes (prediabetes). Fasting plasma glucose results greater than or equal to 126 mg/dL meet the criteria for diagnosis of diabetes. In the absence of unequivocal hyperglycemia, results should be confirmed by repeat testing. In a patient with classic symptoms of hyperglycemia or hyperglycemic crisis, random plasma glucose results greater than or equal to 200 mg/dL meet the criteria for diagnosis of diabetes. Reference: Standards of Medical Care in Diabetes 2016, [place] Diabetes Association. Diabetes Care. 2016.39(Suppl 1). Performed By: #### 1 9123-9, 3015-3, 30037-1 ####[facility] LABCLIA [id number] [address] [address] [place] Potassium [Moles/Vol] 4.6 mmol/L Normal 3.7-5.1 [facility] Comment on above: Order Comment: Mejia mckenzie Type: BLOOD SPECIMENOrdering Facility: [facility] Address: [address] [place] [address] Performed By: #### 1 9123-9, 3015-3, 20766-0 ####[facility] LABCLIA [id number] [address] [address] [place] Sodium [Moles/Vol] 139 mmol/L Normal 136-144 [facility] Comment on above: Order Comment: Speci men Type: BLOOD SPECIMENOrdering Facility: [facility] Address: [address] [place] [address] [place] [id number] Performed By: #### 1 9123-9, 3016-3, 33172-7 ####[facility] LABCLIA [id number] [place] [address] [place] Urea nitrogen [Mass/Vol] 15 mg/dL Normal 9-24 [facility] Comment on above: Order Comment: Speci men Type: BLOOD SPECIMENOrdering Facility: [facility] Address: [address] [place] [address] Performed By: #### 1 9123-9, 3016-3, 38204-3 ####[facility] LABCLIA [id number] [place] [address] [place] CNOVon 07-12-2024 CNOV Office Visit (CHIQUIPWS ) GOOD DE LUNA ([id number]) 1965 M Date Time Provider Department 07/12/24 11:00 AM BRIAN AHMADI FAMPWS During your visit today, we recorded the following information about you: Pulse Respiration Blood pressure Weight 67/minute 20/minute 140/88 99.8 kg Brian Ahmadi APRN.CNP 07/12/2024 11:06 AM [facility] to [facility] TSH Complete labs and EEG that was ordered by neurology Schedule with neurosurgery See us back in 6 months. LUCIAN Hannon Jesse, APRN.CNP 07/12/2024 11:22 AM Signed Chief Complaint Patient presents with: Follow Up: 3 month HPI Good Chacorta HerringDe Luna is a 59 year old male who presents here today for Chronic Medical Conditions. Patient is here for routine follow-up. Patient is taking his levothyroxine as prescribed. He is due for a recheck of his TSH. Last TSH was suppressed. We reduced his dose. Currently taking 150 mcg of levothyroxine daily. There was some prior discussion in the past where he was taking this medication with other medications. At this time he is taking his levothyroxine without food. He admits to a few missed doses. Patient history of anxiety, depression. He is on Celexa 40 mg daily. He is also on lorazepam as needed for anxiety, panic. He is taking this as needed. Overall he feels okay. He is also following with neurology for cognitive issues. Neurology ordered labs, EEG to further assess. It does not appear that they have been completed. Patient initially states that his confusion, forgetfulness is actually improved. He states that he improved when he started getting allergy injections. States that he was dealing with an inner ear fullness that was causing debilitating symptoms. Past medical history, appointments, medications, allergies reviewed. EXAM: BP 140/88 Pulse 67 Resp 20 Wt 99.8 kg (220 lb) SpO2 98% BMI 36.61 kg/m? General Appearance: Well appearing, alert, in no acute distress, well-hydrated, well nourished.. Neck: Supple, no adenopathy; thyroid symmetric, normal size, no bruits. Lungs: Lungs clear to auscultation. No wheezing, rhonchi, rales.. Heart: RRR without murmur, gallop, or rubs. No ectopy. ASSESSMENT/PLAN: 1. Hypothyroidism, unspecified type - ICD9: 244.9, ICD10: E03.9 (primary diagnosis) - Instructed patient on importance of taking on an empty stomach either first thing in the morning or at bedtime. - check TSH today 2. Recurrent major depressive disorder, remission status unspecified (HCC) - ICD9: 296.30, ICD10: F33.9 -Stable, continue Celexa as prescribed 3. Anxiety - ICD9: 300.00, ICD10: F41.9 -Stable, continue Celexa, lorazepam as needed - LORAZEPAM 0.5 MG TABLET 4. Confusion - ICD9: 298.9, ICD10: R41.0 -Improving, but still would recommend labs, EEG to finish workup. Brian Ahmadi APRN.REBRANDER RTO in 6 months, sooner if needed. This note was partly generated using [employer] voice recognition dictation and may contain some misspelled or inaccurate words missed on review. Allergies As of Date: 07/12/2024 (No Known Allergies) Date Reviewed: 07/12/2024 Reviewed by: Rola Riojas LPN - Fully Assessed Reason for Visit: Follow Up [171] Cmt: 3 month Primary Visit Diagnosis:Hypothyroidism, unspecified type [E03.9] Other Visit Diagnoses:Recurrent major depressive disorder, remission status unspecified (HCC) [F33.9] Anxiety [F41.9] Confusion [R41.0] Order(s):LORazepam (ATIVAN) 0.5 mgTake 1-2 tablets by mouth once daily as needed for up to 30 days.Disp: 60 tabletRfl: 0 Prescriptions as of 07/12/2024 - LORazepam (ATIVAN) 0.5 mg Take 1-2 tablets by mouth once daily as needed for up to 30 days. - levothyroxine (SYNTHROID) 150 mcg tablet Take 1 tablet by mouth once daily. - omeprazole (PRILOSEC) 20 mg capsule take 1 capsule by mouth once daily - cholecalciferol, vitamin D3, (VITAMIN D3 ORAL) Take 2,000 mcg by mouth once daily. - citalopram (CELEXA) 40 mg tablet Take 1 tablet by mouth once daily. - CPAP Initiate CPAP @ 7 cm of water with humidification. Mask (per patient preference) optional chin strap (if indicated) , filters, tubing, humidifier and lifetime supplies. - multivit-min/folic/vit K/lycop (MEN'S 50 PLUS MULTIVITAMIN ORAL) Take 1 tablet by mouth once daily. - vitamin b complex capsule Take 1 capsule by mouth once daily. Problem List As Of Date 07/12/2024 Noted Resolved Sleep apnea [G47.30] 09/22/2008 Hypothyroidism [E03.9] 03/27/2009 Anxiety state [F41.1] 03/27/2009 Bilateral Hip Pain [M25.551, M25.552] 04/17/2009 SI (Sacroiliac) Joint Dysfunction [M53.3] 04/17/2009 Thoracic or lumbosacral neuritis or radiculitis*04/25/2014 Spinal stenosis of lumbar region [M48.061] 12/12/2017 Chronic bilateral low back pain with right-side*01/10/2018 Back pain [M54.9] 02/10/2019 Nicotine use disorder, F17.2 [F17.200] (more content not included)... Normal [facility] Folate SerPl-mCncon 07-12-20 Folate [Mass/Vol] 5.5 ng/mL Normal >4.7 [facility] Comment on above: Order Comment: Speci men Type: BLOOD SPECIMENOrdering Facility: [facility] Address: [address] [place] [address] Performed By: #### 2 284-8, 2132-9 ####[facility] LABIA [id number] [place] [address] [place] Magnesium SerPl-mCncon 07-12 Magnesium [Mass/Vol] 1.9 mg/dL Normal 1.7-2.3 [facility] Comment on above: Order Comment: Mejia mckenzie Type: BLOOD SPECIMENOrdering Facility: [facility] Address: [address] [place] [address] Performed By: #### 1 9123-9, 3016-3, 20118-2 ####[facility] [id number] [place] [address] [place] Methylmalonate SerPl-sCncon 07-12-2024 Methylmalonate [Moles/Vol] 0.13 umol/L Normal <=0.40 [facility] Comment on above: Order Comment: Mejia [facility] Type: BLOOD SPECIMENOrdering Facility: [facility] Address: [address] [place] [address] Result Comment: This test was developed, and its performance characteristics determined by the [facility] Department of Pathology and Laboratory Medicine. It has not been cleared or approved by the FDA. The [facility] Department of Pathology and Laboratory Medicine is regulated under CLIA as qualified to perform high-complexity testing. This test is used for clinical purposes. It should not be regarded as investigational or for research. Performed By: #### 1 3964-2 ####[facility] LABCLIA [id number] [place] [address] [place] TSH SerPl-aCncon 07-12-2024 TSH Qn 11.200 m[IU]/L High 0.270-4.200 [facility] Comment on above: Order Comment: Speci men Type: BLOOD SPECIMENOrdering Facility: [facility] Address: [address] [place] [address] Performed By: #### 1 9123-9, 3016-3, 95482-0 ####[facility] LABIA [id number] [place] [address] [place] Vit B12 SerPl-mCncon 024 Cobalamin (Vitamin B12) [Mass/Vol] 409 pg/mL Normal 232-1245 [facility] Comment on above: Order Comment: Speci men Type: BLOOD SPECIMENOrdering Facility: [facility] Address: [address] [place] [address] Performed By: #### 2 284-8, 2132-9 ####[facility] [id number] [address] [place] CNPAntonieta [facility]20[facility] [place] ([id number]) 1965 M Date Time Provider Department 06/12/24 MATHEW COBIAN [facility] During your visit today, we recorded the following information about you: Scarlet Carvajal LPN 06/12/2024 2:23 PM Signed Pt states on 06/06/24 he dropped a form off in the main lobby for pcp to complete. The form was to allow pt to have an emotional support cat without paying a pet fee. Pt asking if this is complete AND has it been sent off yet? ANGELA Dalal Kathryn, MA 06/13/2024 12:00 PM Signed See phone note 06/10/24. TAWANNA Shelley Stephanie, RN 06/27/2024 12:32 PM Signed Patient calls and states that he is going to have daughter brain picker form. Uma Jett RN Allergies As of Date: 06/12/2024 (No Known Allergies) Date Reviewed: 05/22/2024 Reviewed by: Arlene Baker MA - Fully Assessed Reason for Visit: Forms [913] Prescriptions as of 06/27/2024 - levothyroxine (SYNTHROID) 150 mcg tablet Take 1 tablet by mouth once daily. - omeprazole (PRILOSEC) 20 mg capsule take 1 capsule by mouth once daily - cholecalciferol, vitamin D3, (VITAMIN D3 ORAL) Take 2,000 mcg by mouth once daily. - citalopram (CELEXA) 40 mg tablet Take 1 tablet by mouth once daily. - CPAP Initiate CPAP @ 7 cm of water with humidification. Mask (per patient preference) optional chin strap (if indicated) , filters, tubing, humidifier and lifetime supplies. - multivit-min/folic/vit K/lycop (MEN'S 50 PLUS MULTIVITAMIN ORAL) Take 1 tablet by mouth once daily. - vitamin b complex capsule Take 1 capsule by mouth once daily. 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 Lizzy 06-10-2024 [facility] [place] ([id number]) 1965 Date Time Provider Department 06/10/24 [facility] During your visit today, we recorded the following information about you: Laura Whaley MA 06/10/2024 10:10 AM Signed Pt dropped off form from [facility] stating that pt is requesting either 1) change in rules, policies, practices or services (due to a disability) to afford him/her full enjoyment of the premises or 2) a physical change (due to disability) to afford him/her full enjoyment of premises. TAWANNA Shelley Kathryn, MA 06/13/2024 12:00 PM Signed 06/06/24 he dropped a form off in the main lobby for pcp to complete. The form was to allow pt to have an emotional support cat without paying a pet fee. Pt asking if this is complete AND has it been sent off yet? ANGELA Dalal Beth, LPN 06/14/2024 2:20 PM Signed Patient calling to see if form is completed, he is moving in a week. Patient wants to brain picker form when completed please. Meena Garcia LPN 06/18/2024 4:22 PM Signed Patient is calling re: status of form. Needing FRANCIA or will have to pay extra $300 that he does not have. Gypsy Meadows LPN, APRN.PATTIE 06/27/2024 8:12 AM Signed Form has been completed and ready for brain picker. Patient has been notified. Gypsy Syed APRN.REBRANDER Allergies As of Date: 06/10/2024 (No Known Allergies) Date Reviewed: 05/22/2024 Reviewed by: Arlene Baker MA - Fully Assessed Reason for Visit: Forms [913] Cmt: Apt modification form Prescriptions as of 06/27/2024 - levothyroxine (SYNTHROID) 150 mcg tablet Take 1 tablet by mouth once daily. - omeprazole (PRILOSEC) 20 mg capsule take 1 capsule by mouth once daily - cholecalciferol, vitamin D3, (VITAMIN D3 ORAL) Take 2,000 mcg by mouth once daily. - citalopram (CELEXA) 40 mg tablet Take 1 tablet by mouth once daily. - CPAP Initiate CPAP @ 7 cm of water with humidification. Mask (per patient preference) optional chin strap (if indicated) , filters, tubing, humidifier and lifetime supplies. - multivit-min/folic/vit K/lycop (MEN'S 50 PLUS MULTIVITAMIN ORAL) Take 1 tablet by mouth once daily. - vitamin b complex capsule Take 1 capsule by mouth once daily. 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] 05/27/2021 Spasticity [R25.2] 05/27/2021 Costochondritis [M94.0] 05/27/2021 Localized osteoporosis (Lequesne) [M81.6] 05/27/2021 Recurrent major depressive disorder, remission *10/17/2023 Prostate cancer (HCC) [C61] 10/17/2023 Diverticulitis [K57.92] 04/30/2024 Rectal bleeding [K62.5] 05/12/2024 Encounter Status:Closed by GYPSY SYED on 06/27/24 [facility] 06-07-2024 CNPN Telephone (FAMPWS) GOOD [place] ([id number]) 1965 M Date Time Provider Department 06/07/24 [facility] During your visit today, we recorded the following information about you: Rylie Wing 06/07/2024 10:36 AM Signed Order for Consult to Neurosurgery needs to be edited. Diagnoses is only pulling general neurology providers instead of cerebrovascular providers. Currently unable to schedule. Please contact patient when completed. 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 - omeprazole (PRILOSEC) 20 mg capsule take 1 capsule by mouth once daily - cholecalciferol, vitamin D3, (VITAMIN D3 ORAL) Take 2,000 mcg by mouth once daily. - citalopram (CELEXA) 40 mg tablet Take 1 tablet by mouth once daily. - CPAP Initiate CPAP @ 7 cm of water with humidification. Mask (per patient preference) optional chin strap (if indicated) , filters, tubing, humidifier and lifetime supplies. - multivit-min/folic/vit K/lycop (MEN'S 50 PLUS MULTIVITAMIN ORAL) Take 1 tablet by mouth once daily. - vitamin b complex capsule Take 1 capsule by mouth once daily. 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 Lizzy 06-03-2024 [facility] [place] ([id number]) 1965 M Date Time Provider Department 06/03/24 DEVI CISSE PNMDNA During your visit today, we recorded the following information about you: Sofia Munoz MA 06/03/2024 2:10 PM Signed Left VM letting patient know he has an virtual apt. With Dr. Cisse at 3 pm and that I will try calling closer to 3 pm to see if help is needed with logging in for apt. Sofia Munoz MA 06/03/2024 2:44 PM Signed Talk to patient he already answered precheck in questions, I told him if I don't see he logged in I will give him a call to help Devi Cisse MD 06/03/2024 3:28 PM Signed Please make sure he comes for follow up visit ,he may need help scheduling tests and orders First visit is virtual visit Allergies As of Date: 06/03/2024 (No Known Allergies) Date Reviewed: 05/22/2024 Reviewed by: Arlene Baker MA - Fully Assessed Reason for Visit: Appointment [186] Prescriptions as of 06/03/2024 - levothyroxine (SYNTHROID) 150 mcg tablet Take 1 tablet by mouth once daily. - omeprazole (PRILOSEC) 20 mg capsule take 1 capsule by mouth once daily - cholecalciferol, vitamin D3, (VITAMIN D3 ORAL) Take 2,000 mcg by mouth once daily. - citalopram (CELEXA) 40 mg tablet Take 1 tablet by mouth once daily. - CPAP Initiate CPAP @ 7 cm of water with humidification. Mask (per patient preference) optional chin strap (if indicated) , filters, tubing, humidifier and lifetime supplies. - multivit-min/folic/vit K/lycop (MEN'S 50 PLUS MULTIVITAMIN ORAL) Take 1 tablet by mouth once daily. - vitamin b complex capsule Take 1 capsule by mouth once daily. 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 CNOVon 05-22-2024 CNOV Office Visit (GENSWS ) GOOD [place] ([id number]) 1965 M Date Time Provider Department 05/22/24 11:15 AM JENNIFER MCGHEE During your visit today, we recorded the following information about you: Pulse Blood pressure 68/minute 111/72 Jennifer Mcghee APRN.REBRANDER 05/22/2024 2:48 PM Signed FOLLOW UP VISIT - ENDOSCOPY Good De Luna 1965 [id number] REFERRING PHYSICIAN: No referring provider defined for this encounter. Good De Luna is a patient I am following for rectal bleeding. Dr. Bar performed lower endoscopy on 05/12/24. The patient was found to have Impression: - Preparation of the colon was poor. - Hemorrhoids found on perianal exam. - One 8 mm polyp in the ascending colon, removed with a cold snare. Resected and retrieved. - One 3 mm polyp in the ascending colon, removed with a cold biopsy forceps. Resected and retrieved. - One 15 mm polyp in the sigmoid colon, removed with a hot snare. Resected and retrieved. Tattooed. - Two 1 to 5 mm polyps in the sigmoid colon, removed with a cold biopsy forceps. Resected and retrieved. 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 Clip (MR safe) was placed. - Eight 1 to 4 mm polyps in the rectum, removed with a cold biopsy forceps. Resected and retrieved. - Moderate diverticulosis in the recto-sigmoid colon, in the sigmoid colon and in the descending colon. There was narrowing of the colon in association with the diverticular opening. Purulent discharge was seen in association with the diverticular opening. There was no evidence of diverticular bleeding. Pathology demonstrated: FINAL DIAGNOSIS A. Ascending colon polyps, biopsy: -Tubular adenoma fragments (x4). -Separate fragments of serrated polyp, see comment. B. Sigmoid colon polyp at 40 cm, biopsy: -Hyperplastic polyp. C. Sigmoid colon polyps, biopsy: -Multiple fragments of hyperplastic polyps. D. Rectum polyps, biopsy: -Tubular adenoma fragments (x 2). -Multiple fragments of hyperplastic polyps. Diagnosis Comment Comment A: The histologic features in these polyps do not reach our threshold for sessile serrated adenoma/polyp. Nonetheless, given the anatomic location, close colonoscopic follow-up is recommended. The patient notes no complaints since the procedure. Jaquan was admitted prior to colonoscopy to complete bowel prep d/t hx of CP. Prep was poor. Recommend 2 days of clears for next colonoscopy. VITALS: There were no vitals taken for this visit. General: patient is alert, cooperative, pleasant and in no acute distress On examination, the abdomen is benign. Assessment ASSESSMENT/PLAN: 1. History of colonic polyps - ICD9: V12.72, ICD10: Z86.0100 The operative findings and pathology report were reviewed with the patient, and the patient has had the opportunity to ask questions and have questions answered. If the patient notes any problems or changes in bowel function, the patient should contact me immediately. Otherwise I recommend follow up endoscopy in 1 year. HM updated and recall letter generated. Discussed treatment plan and patient voices understanding. Patient's questions answered appropriately. Medications and potential side effects were discussed and patient voices understanding. Return to the office as scheduled or as needed for worsening/no improvement. Jennifer Mcghee APRN.REBRANDER Allergies As of Date: 05/22/2024 (No Known Allergies) Date Reviewed: 05/22/2024 Reviewed by: Arlene Baker MA - Fully Assessed Reason for Visit: Follow Up [171] Primary Visit Diagnosis:History of colonic polyps [Z86.0100] Prescriptions as of 05/22/2024 - levothyroxine (SYNTHROID) 150 mcg tablet Take 1 tablet by mouth once daily. - omeprazole (PRILOSEC) 20 mg capsule take 1 capsule by mouth once daily - cholecalciferol, vitamin D3, (VITAMIN D3 ORAL) Take 2,000 mcg by mouth once daily. - citalopram (CELEXA) 40 mg tablet Take 1 tablet by mouth once daily. - CPAP Initiate CPAP @ 7 cm of water with humidification. Mask (per patient preference) optional chin strap (if indicated) , filters, tubing, humidifier and lifetime supplies. - multivit-min/folic/vit K/lycop (MEN'S 50 PLUS MULTIVITAMIN ORAL) Take 1 tablet by mouth once daily. - vitamin b complex capsule Take 1 capsule by mouth once daily. Problem List As Of Date 05/22/2024 Noted Resolved Sleep apnea [G47.30] 09/22/2008 Hypothyroidism [E03.9] 03/27/2009 Anxiety state [F41.1] 03/27/2009 Bilateral Hip Pain [M25.551, M25.552] 04/17/2009 SI (Sacroiliac) Joint Dysfunction [M53.3] 04/17/2009 Thoracic or lumbosacral neuritis or radiculitis*04/25/2014 Spinal stenosis of lumbar region [M48.061] 12/12/2017 Chronic bilateral low back pain with right-side*01/10/2018 Back pain [M54.9] 07/ (more content not included)... Normal [facility] CNOVon 05-17-2024 CNOV Office Visit (UCWSTR ) DE LUNAGOOD BATES ([id number]) 1965 M Date Time Provider Department 05/17/24 1:00 PM [facility] During your visit today, we recorded the following information about you: Temperature Pulse Respiration Blood pressure 97.5 degrees 54/minute 20/minute 110/71 Weight 101.8 kg Prema Turner PHYSICIAN UNDERWRITER.REBRANDER 05/17/2024 1:10 PM Signed This note was created using TrackR. Subjective Good De Luna is a 58 year old male. HPI Pt was walking on the treadmill, lost his balance, and as he was trying to catch himself the treadmill was spinning creating abrasions to the bilateral anterior lower legs. Each abrasion is approximately 3 cm in length by approximately 1 cm wide. Left abrasion just to the cutaneous layers. Right abrasion has not broken through the cutaneous layers Review of Systems Skin: Positive for wound. Objective BP 110/71 Pulse (!) 54 Temp 36.4 ?C (97.5 ?F) Resp 20 Wt 101.8 kg (224 lb 6.9 oz) SpO2 97% BMI 37.35 kg/m? Physical Exam Vitals and nursing note reviewed. Constitutional: General: He is not in acute distress. Appearance: Normal appearance. He is not ill-appearing. HENT: Head: Normocephalic. Pulmonary: Effort: Pulmonary effort is normal. Musculoskeletal: General: Normal range of motion. Cervical back: Normal range of motion. Skin: General: Skin is warm and dry. Comments: Abrasions as noted in HPI Neurological: General: No focal deficit present. Mental Status: He is alert. Psychiatric: Mood and Affect: Mood normal. Behavior: Behavior normal. Assessment and Plan ASSESSMENT/PLAN: 1. Abrasion of lower leg, unspecified laterality, initial encounter - ICD9: 916.0, ICD10: S80.819A Patient had clean the wound at home and here in the department I applied a layer of bacitracin antibiotic ointment nonadherent dressing and Coban. Patient was sent home with some additional supplies. He is to follow-up with his PCP and otherwise go to the ER for any signs of increased swelling, redness, or fever. Prema Turner APRN.Prema Starks APRN.CNP 05/17/2024 12:58 PM Signed You have created abrasions to your bilateral lower legs. I recommend that 2 times per day you gently wash the area with soap and water and apply a fresh layer of antibiotic ointment and a clean dressing. Please monitor the area for any signs of increased redness, swelling, or fevers and report to the ER for further evaluation otherwise follow-up with your family doctor. Allergies As of Date: 05/17/2024 (No Known Allergies) Date Reviewed: 05/17/2024 Reviewed by: Prema Turner APRN.PATTIE - Fully Assessed Reason for Visit: Trauma [112] Cmt: Fell on tread mill, and hit shins and hav wounds on bilat ankles, x 20 mins Primary Visit Diagnosis:Abrasion of lower leg, unspecified laterality, initial encounter [S80.819A] Prescriptions as of 05/17/2024 - levothyroxine (SYNTHROID) 150 mcg tablet Take 1 tablet by mouth once daily. - omeprazole (PRILOSEC) 20 mg capsule take 1 capsule by mouth once daily - cholecalciferol, vitamin D3, (VITAMIN D3 ORAL) Take 2,000 mcg by mouth once daily. - citalopram (CELEXA) 40 mg tablet Take 1 tablet by mouth once daily. - CPAP Initiate CPAP @ 7 cm of water with humidification. Mask (per patient preference) optional chin strap (if indicated) , filters, tubing, humidifier and lifetime supplies. - multivit-min/folic/vit K/lycop (MEN'S 50 PLUS MULTIVITAMIN ORAL) Take 1 tablet by mouth once daily. - vitamin b complex capsule Take 1 capsule by mouth once daily. 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 I recommend that 2 times per day you gently wash the area with soap and water and apply a fresh layer of antibiotic ointment and a clean dressing. Please monitor the area for any signs of increased redness, swelling, or fevers and report to the ER for further evaluation otherwise follow-up with your famil (more content not included)... [facility] DE LUNAGOOD BATES ([id number]) 1965 M Date Time Provider Department 05/16/24 MATHEW COBIAN During your visit today, we recorded the following information about you: Ashlyn London RN 05/16/2024 2:36 PM Signed Patient asking pcp to write an updated letter, stating he needs an emotional support animal. Reports he is moving and the place he's moving to needs an updated letter. Please send to patient, via PrivacyCentral[employer]. Address verified. Mathew Cobian MD 05/16/2024 4:25 PM Signed Letter done MD Judd Jimenez Kathryn, MA 05/16/2024 4:33 PM Signed Mailed. Laura Whaley MA Allergies As of Date: 05/16/2024 (No Known Allergies) Date Reviewed: 05/13/2024 Reviewed by: Christina Parkinson RN - Fully Assessed Reason for Visit: Letter [264] Prescriptions as of 05/16/2024 - levothyroxine (SYNTHROID) 150 mcg tablet Take 1 tablet by mouth once daily. - omeprazole (PRILOSEC) 20 mg capsule take 1 capsule by mouth once daily - cholecalciferol, vitamin D3, (VITAMIN D3 ORAL) Take 2,000 mcg by mouth once daily. - citalopram (CELEXA) 40 mg tablet Take 1 tablet by mouth once daily. - CPAP Initiate CPAP @ 7 cm of water with humidification. Mask (per patient preference) optional chin strap (if indicated) , filters, tubing, humidifier and lifetime supplies. - multivit-min/folic/vit K/lycop (MEN'S 50 PLUS MULTIVITAMIN ORAL) Take 1 tablet by mouth once daily. - vitamin b complex capsule Take 1 capsule by mouth once daily. 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 ANES POSTPROC EVALon 024 ANES POSTPROC EVAL HNO ID: [id number] Author: SUNDAY HUTTON MD Service: Anesthesiology Author Type: Anesthesiologist Type: Anesthesia Postprocedure Evaluation Filed: 05/13/2024 10:46 Note Text: POST ANESTHESIA EVALUATION NOTE : 1965 Procedure Summary Date: 05/13/24 Room / Location: [facility] Endoscopy Anesthesia Start: 816 Anesthesia Stop: 936 Procedure: COLONOSCOPY DIAGNOSTIC Diagnosis: Diverticulitis Bloody stools (Unexplained GI bleeding Hematochezia) Scheduled Providers: Gilson Bar DO; Yuko Silva APRN.MARINE SERVICE OPERATOR; Sunday Hutton MD Responsible Provider: Sunday Hutton MD Anesthesia Type: MAC ASA Status: 3 Anesthesia Type: MAC Last Vitals Vitals Value Taken Time BP 116/70 05/13/24 1036 Temp 36.2 ?C (97.2 ?F) 05/13/24 0936 Pulse 42 05/13/24 1044 Resp 15 05/13/24 1044 SpO2 100 % 05/13/24 1044 Vitals shown include unfiled device data. Post Anesthesia Patient Status Patient Evaluation: PACU. PACU/ICU Patient Condition: stable. Anticipated Disposition: phase 2 then home. Neurological Status: aware and responsive. Pulmonary Status: breathing comfortably on room air Airway Control: returned to baseline unsupported. Cardiovascular Status: stable. Pain Management: clinically adequate - multimodal analgesia pain management approach Postoperative Hydration: acceptable. Intraoperative Events: no significant anesthesia events Recommendation: continue current plan of care. Anesthesia Observations No Documentation SIGNATURE: Sunday Hutton MD PATIENT NAME: Good De Luna DATE: May 13, 2024 TIME: 10:46 AM CSN: [id number] Normal [facility] ANES PRE-OPon 05-13-2024 ANES PRE-OP HNO ID: [id number] Author: SUNDAY HUTTON MD Service: Anesthesiology Author Type: Anesthesiologist Type: Anesthesia Preprocedure Evaluation Filed: 05/13/2024 07:51 Note Text: ANESTHESIOLOGY DAY OF SURGERY NOTE : 1965 Procedure Information Date/Time: 05/13/24 0815 Scheduled providers: Gilson Bar DO; Yuko Silva APRN.MARINE SERVICE OPERATOR; Sunday Hutton MD Procedure: COLONOSCOPY DIAGNOSTIC Location: [facility] Endoscopy Estimated body mass index is 37.28 kg/m? as calculated from the following: Height as of 05/12/24: 165.1 cm (5' 5). Weight as of 05/08/24: 101.6 kg (224 lb). Most recent hematocrit and potassium results: Hematocrit 45.5 12/14/2023 Potassium 4.2 03/12/2024 Relevant Problems ANESTHESIA (+) Sleep apnea ENDO (+) Hypothyroidism PULMONARY (+) Sleep apnea I - PHYSICAL EVALUATION AIRWAY Patient intubated: No. Tracheostomy tube not present Mallampati: II. TM distance: >3 FB. Neck ROM: full ROM without neurological symptoms. Mouth opening: adequate. DENTAL Dental findings: poor dentition. Additional exam findings: no II - ANESTHESIA PLAN ASA Score: 3 Anesthetic Plan: MAC NPO Status: adequate Beta Naseem Monitoring Plan Monitoring plan: standard ASA. Post Procedure Analgesic Plan Postoperative analgesic plan: parenteral or oral opioids and multimodal analgesia. Informed Consent Anesthetic risks, benefits, alternatives, personnel and consent discussed: yes. Patient / Responsible Alliance Party agrees to proceed: yes Patient / Surrogate agrees to blood products: blood products not planned Significant changes in the patient condition since the History and Physical, not otherwise documented in primary service progress note: no. Vitals Value Taken Time BP 116/63 05/13/24 07 Pulse 48 05/13/24728 Resp 16 05/13/24728 Temp 36.7 ?C (98.1 ?F) 05/13/24 0729 SpO2 98 % 05/13/24728 Facility-Administered Medications as of 05/13/2024 Medication Dose Route Frequency - sodium phosphate-sodium bisphosphate 133 mL enema (FLEET) 133 mL RECTAL ONCE - sodium phosphate-sodium bisphosphate 133 mL enema (FLEET) 133 mL RECTAL ONCE - pantoprazole DR 20 mg tab(s) (PROTONIX) 20 mg ORAL DAILY - citalopram 40 mg tab(s) (CeleXA) 40 mg ORAL DAILY - levothyroxine 150 mcg (SYNTHROID) 150 mcg ORAL DAILY - cholecalciferol 1,000 Units tab(s) (VITAMIN D3) 1,000 Units ORAL DAILY - multivitamin-ferrous fumarate-folic acid 1 tablet (CENTRUM) 1 tablet ORAL DAILY - lidocaine 4 % 1 Patch (SALONPAS) 1 Patch TRANSDERMAL DAILY AT 9 PM And - lidocaine patch - REMOVE OTHER DAILY And - lidocaine - VERIFY PATCH OTHER q 8 H No current outpatient medications on file as of 05/13/2024. I have interviewed and examined the patient. I have reviewed the medical record and/or the pre-anesthesia evaluation, pertinent labs, and test results. This contains updated information obtained within 48 hours of Surgery/Procedure. SIGNATURE: Sunday Hutton MD PATIENT NAME: Good De Luna DATE: May 13, 2024 TIME: 7:50 AM CSN: [id number] [facility] CASE MANAGEMon 05-13-2024 CASE MANAGEM HNO ID: [id number] Author: FRANKLYN BROWN RN Service: ? Author Type: Registered Nurse Type: Care Mgt Progress Note Filed: 05/13/2024 12:51 Note Text: CARE MANAGEMENT UTILIZATION REVIEW COMMITTEE CODE 44 (Admission Status Discrepancy Review) Admission Date: 05/12/2024 Patient's Initial Order is: Inpatient Date Received: May 13, 2024 Date Reviewed: May 13, 2024 , the practitioner responsible for the care of the patient, was consulted and concurs with the determinination made by the UR committee. Under the authority of the Utilization Management Committee, the Physician Advisor, Dr. Terese Meehan, has reviewed the medical record of the above patient. The following recommendation has been made by the Physician Advisor, based upon the current available medical information as of the date of this determination. The patient is appropriate for: Observation Rationale for this decision: Lack of medical necessity for inpatient admission SIGNATURE: Franklyn Brown RN PATIENT NAME: Good De Luna DATE: May 13, 2024 TIME: 12:51 PM Disclaimer: The information in this determination is to be used for utilization management purposes only. The information and recommendation is made pursuant to Medicare Hospital Conditions of Participation (442 CFR Part 482) and is neither a judgment nor an assessment with regard to the appropriateness or quality of the clinical care. Nothing in this document may be used to limit clinical services provided to the above named patient. This form should be used as one part of the process utilized to ensure compliance with [facility] policy regarding Inpatient Admission and Observation Services. The definitions of Inpatient and Observation used in making the determination above are those provided in Medicare Benefit Policy Manual Chapter 1, Section 1 and 10, Chapter 6, Section 20, and the Medicare Claims Processing Manual Chapter 1, Section 50.3 and Chapter 4, Section 290. This recommendation should be considered as only one factor in determining the patient's final level of service along with other pertinent documentation such as the treating physician's order as documented evidence of concurrence. [facility] CASE MGT INIT Dese[place] 2023 CASE MGT INIT [facility] HNO ID: [id number] Author: MENDEZ DEVINE RN Service: ? Author Type: Registered Nurse Type: Care Mgt Initial Assessment Filed: 05/13/2024 11:33 Note Text: CARE MANAGEMENT: ASSESSMENT AND DISCHARGE PLAN SERVICE DATE: May 13, 2024 SERVICE TIME: 11:32 AM PCP: Mathew Cobian MD Primary Contact: Extended Emergency Contact Information Primary Emergency Contact: TalatCalixto Relation: Father Secondary Emergency Contact: Calixto Solares Relation: Child Admission Status: Inpatient Insurance Provider: MEDICARE A AND B Discharge Planning requested by: Per Department Practice Potential Transition Plans Home Advance Directives Current Advance Directive: None Search Engine Optimization Analyst Attempted to Assist with AD Completion: Yes Action: Patient Unwilling Current Living Arrangements and Support Lives with: Alone Type of Residence: Private Residence (Apartment or Condo) Does the patient have to climb stairs at home?: Yes;stairs outside the home Support: How do you manage to accomplish the following: Independent: Ambulation;Bathe/Shower;Sahil ss;Meals/Meal Prep;Going to the bathroom;Medication Management;Transportation to appointments/community Current Services/Equipment Current Post-Acute Service(s): DME Current DME Type: Walker, Continuous Positive Airway Pressure, Other: See Comment (Walking stick) Discharge Planning Patient Goal(s): General wellness [place] Explained: [place] of [place] Given: No Reason Not Given: No placements necessary Are you interested in bedside delivery of your medications? No, [facility] in [place] Discharge Planning Participant(s): Patient Patient/Family Comments: Caregiver Assessment: Caregiver is ready, willing and able to meet the patient's needs as recommended by the inter-professional team: No Caregiver needed Transport at Discharge: Transportation Arrangements: Car Needs Prior to Discharge: Needs Prior to Discharge: Other: See Comment (medical clearance) Post-Acute Discharge Plan: EMR reviewed. Patient admitted for colonoscopy prep for rectal bleeding. Colonoscopy planned for today. RNCM spoke to patient to complete assessment. 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 Daughter to transport. CM assigned will continue to follow for DC planning needs. SIGNATURE: Mendez Devine RN PATIENT NAME: Good De Luna DATE: May 13, 2024 TIME: 11:32 AM CONTACT #: [phone] [facility] CNCOon 05-13-2024 CNCO Letter Text [facility] CNDSon 05-13-2024 CNDS HNO ID: [id number] Author: GILSON BAR DO Service: General Surgery Author Type: Physician Type: Discharge Summary Filed: 05/13/2024 17:46 Note Text: DISCHARGE NOTE (Patient Admitted Less than 48 Hours) SERVICE DATE: 05/13/2024 SERVICE TIME: 5:44 PM ADMISSION DATE: 05/12/2024 DISCHARGE DATE: 05/13/2024 DISCHARGE DISPOSITION: Home with Self Care Discharge Physical Exam: VITAL SIGNS: BP 122/70 Pulse (!) 56 Temp 36.9 ?C (98.4 ?F) (Oral) Resp 17 Ht 165.1 cm (5' 5) SpO2 96% BMI 37.28 kg/m? GENERAL: Alert, no distress, cooperative. HEART: Regular rate. LUNGS: Unlabored breathing on room air. ABDOMEN: Soft, non-tender, non-distended. DIET: Regular ACTIVITY AFTER DISCHARGE: Resume pre-hospital activity FOLLOW UP CARE REQUIRED: Follow up in clinic to review colonoscopy pathology in 1-2 weeks DISCHARGE MEDICATIONS: Medication List CONTINUE taking these medications citalopram 40 mg tablet Commonly known as: CeleXA Take 1 tablet by mouth once daily. CPAP Initiate CPAP @ 7 cm of water with humidification. Mask (per patient preference) optional chin strap (if indicated) , filters, tubing, humidifier and lifetime supplies. levothyroxine 150 mcg tablet Commonly known as: SYNTHROID Take 1 tablet by mouth once daily. MEN'S 50 PLUS MULTIVITAMIN ORAL omeprazole 20 mg capsule Commonly known as: PriLOSEC take 1 capsule by mouth once daily VITAMIN D3 ORAL ASK your doctor about these medications vitamin b complex capsule FINAL DIAGNOSIS: rectal bleeding, diverticulosis, multiple colonic polyps Obesity Class II (BMI 35-39.9) Plan of care discussed with Provider, RN, Patient SIGNATURE: Gilson Bar DO PATIENT NAME: Good De Luna DATE: May 13, 2024 TIME: 5:44 PM Normal [facility] Colonoscopyon 05-13-2024 Colonoscopy [facility] Gastrointestinal Endoscopy Patient Name: Good De Luna Procedure Date: 05/13/2024 8:00 AM Date of : 1965 Admit Type: Outpatient Age: 58 Room: [facility] A Gender: Male Note Status: Finalized Attending MD: Gilson Bar , , [id number] Procedure: Colonoscopy Indications: Evaluation of unexplained GI bleeding presenting with Hematochezia Providers: Gilson Bar Patient Profile: This is a 58 year old male. Refer to note in patient chart for documentation of history and physical. Last Colonoscopy: none. The patient's first colonoscopy is today. Referring Physician: Gilson Bar (Referring MD) Medicines: See the Anesthesia note for documentation of the administered medications Requesting Provider: Procedure: Pre-Anesthesia Assessment: - Prior to the procedure, a History and Physical was performed, and patient medications and allergies were reviewed. The patient is competent. The risks and benefits of the procedure and the sedation options and risks were discussed with the patient. All questions were answered and informed consent was obtained. Patient identification and proposed procedure were verified by the physician, the nurse, the anesthesiologist and the supervisor type photography in the pre-procedure area in the endoscopy suite. Mental Status Examination: alert and oriented. Airway Examination: normal oropharyngeal airway and neck mobility. Respiratory Examination: clear to auscultation. CV Examination: normal. Prophylactic Antibiotics: The patient does not require prophylactic antibiotics. Prior Anticoagulants: The patient has taken no anticoagulant or antiplatelet agents. ASA Grade Assessment: III - A patient with severe systemic disease. After reviewing the risks and benefits, the patient was deemed in satisfactory condition to undergo the procedure. The anesthesia plan was to use monitored anesthesia care (MAC). Immediately prior to administration of medications, the patient was re-assessed for adequacy to receive sedatives. The heart rate, respiratory rate, oxygen saturations, blood pressure, adequacy of pulmonary ventilation, and response to care were monitored throughout the procedure. The physical status of the patient was re-assessed after the procedure. After I obtained informed consent, the scope was passed under direct vision. Throughout the procedure, the patient's blood pressure, pulse, and oxygen saturations were monitored continuously. The Colonoscope was introduced through the anus and advanced to the cecum, identified by the appendiceal orifice, ileocecal valve and palpation. The colonoscopy was somewhat difficult due to multiple diverticula in the colon and poor bowel prep. Successful completion of the procedure was aided by applying abdominal pressure and lavage. The patient tolerated the procedure well. The quality of the bowel preparation was poor. The ileocecal valve, appendiceal orifice, and rectum were photographed. Scope Withdrawal Time: 0 hours 54 minutes 43 seconds Moderate Sedation: See the other procedure note for documentation of moderate sedation with intraservice time. MAC anesthesia was administered by the anesthesia team. Total Procedure Duration: 1 hour 3 minutes 2 seconds Findings: Hemorrhoids were found on perianal exam. An 8 mm polyp was found in the ascending colon. The polyp was sessile. The polyp was removed with a cold snare. Resection and retrieval were complete. Verification of patient identification for the specimen was done. Estimated blood loss was minimal. A 3 mm polyp was found in the ascending colon. The polyp was sessile. The polyp was removed with a cold biopsy forceps. Resection and retrieval were complete. Verification of patient identification for the specimen was done. Estimated blood loss was minimal. A 15 mm polyp was found in the sigmoid colon. The polyp was pedunculated. The polyp was removed with a hot snare. Resection and retrieval were complete. Verification of patient identification for the specimen was done. Estimated blood loss: none. Area was tattooed with an injection of 3 mL of Spot (carbon black). Two sessile polyps were found in the sigmoid colon. The polyps were 1 to 5 mm in size. These polyps were removed with a cold biopsy forceps. Resection and retrieval were complete. Verification of patient identification for the specimen was done. Estimated blood loss was minimal. To prevent bleeding after the biopsy, one hemostatic clip was successfully placed (MR safe). 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 There was no bleeding at the end of the procedure. Eight sessile polyps were found in the rectum. The polyps were 1 to 4 mm in size. These polyps were removed with a cold biopsy forceps. Resection and retrieval were complete. Many large-mouthed, medium-mouthed and small-mouthed diverticula (more content not included)... Normal [facility] Flexible sigmoidoscopy study on 05-13-2024 [facility] Gastrointestinal Endoscopy Patient Name: Good De Luna Procedure Date: 05/13/2024 8:00 AM Date of : 1965 Admit Type: Outpatient Age: 58 Room: [facility] Gender: Male Note Status: Finalized Attending MD: Gilson Bar , , [id number] Procedure: Colonoscopy Indications: Evaluation of unexplained GI bleeding presenting with Hematochezia Providers: Gilson Bar Patient Profile: This is a 58 year old male. Refer to note in patient chart for documentation of history and physical. Last Colonoscopy: none. The patient's first colonoscopy is today. Referring Physician: Gilson Bar (Referring MD) Medicines: See the Anesthesia note for documentation of the administered medications Requesting Provider: Procedure: Pre-Anesthesia Assessment: - Prior to the procedure, a History and Physical was performed, and patient medications and allergies were reviewed. The patient is competent. The risks and benefits of the procedure and the sedation options and risks were discussed with the patient. All questions were answered and informed consent was obtained. Patient identification and proposed procedure were verified by the physician, the nurse, the anesthesiologist and the supervisor type photography in the pre-procedure area in the endoscopy suite. Mental Status Examination: alert and oriented. Airway Examination: normal oropharyngeal airway and neck mobility. Respiratory Examination: clear to auscultation. CV Examination: normal. Prophylactic Antibiotics: The patient does not require prophylactic antibiotics. Prior Anticoagulants: The patient has taken no anticoagulant or antiplatelet agents. ASA Grade Assessment: III - A patient with severe systemic disease. After reviewing the risks and benefits, the patient was deemed in satisfactory condition to undergo the procedure. The anesthesia plan was to use monitored anesthesia care (MAC). Immediately prior to administration of medications, the patient was re-assessed for adequacy to receive sedatives. The heart rate, respiratory rate, oxygen saturations, blood pressure, adequacy of pulmonary ventilation, and response to care were monitored throughout the procedure. The physical status of the patient was re-assessed after the procedure. After I obtained informed consent, the scope was passed under direct vision. Throughout the procedure, the patient's blood pressure, pulse, and oxygen saturations were monitored continuously. The Colonoscope was introduced through the anus and advanced to the cecum, identified by the appendiceal orifice, ileocecal valve and palpation. The colonoscopy was somewhat difficult due to multiple diverticula in the colon and poor bowel prep. Successful completion of the procedure was aided by applying abdominal pressure and lavage. The patient tolerated the procedure well. The quality of the bowel preparation was poor. The ileocecal valve, appendiceal orifice, and rectum were photographed. Scope Withdrawal Time: 0 hours 54 minutes 43 seconds Moderate Sedation: See the other procedure note for documentation of moderate sedation with intraservice time. MAC anesthesia was administered by the anesthesia team. Total Procedure Duration: 1 hour 3 minutes 2 seconds Findings: Hemorrhoids were found on perianal exam. An 8 mm polyp was found in the ascending colon. The polyp was sessile. The polyp was removed with a cold snare. Resection and retrieval were complete. Verification of patient identification for the specimen was done. Estimated blood loss was minimal. A 3 mm polyp was found in the ascending colon. The polyp was sessile. The polyp was removed with a cold (more content not included)... PROVATION [facility] Radiology Study observation (narrative) [facility] NURSING PROGon 05-13-2024 NURSING PROG HNO ID: [id number] Author: PATRICIA BAI, RN Service: Nursing Author Type: Registered Nurse Type: Nursing Progress Note Filed: 05/13/2024 10:53 Note Text: Other: 1020- made aware of Pt's HR. Orders received. 1040- Dr. Hutton iupdated on patient's HR. 1045- Pt c/o chest heaviness. Dr. Hutton at bedside. No new orders. Per Dr. Hutton patient ok to send to the floor. [facility] SURGICAL PATHOLOGYon 024 CASE REPORT [facility] Comment on above: Order Comment: Speci men Type: TISSUE SPECIMEN Ordering Facility: [facility] Address: [address] [place] [address] Result Comment: Surg ical Pathology Report Case: [id number] Authorizing Provider: Gilson Bar DO Collected: 05/13/2024 08:37 AM Ordering Location: [facility] Endoscopy Received: 05/13/2024 10:19 AM Pathologist: Isidro Zarco MD, PhD Specimens: A) - Colon, Ascending Polyp, Ascending Colon Polyps times 2 B) - Colon, Sigmoid, Polyp, Sigmoid Colon Polyp @ 40cm; Spot Ink above/below C) - Colon, Sigmoid, Polyp, Sigmoid Colon Polyps times 2 D) - Rectum, Polyp, Rectal Polyps times 8 Performed By: #### S #### [facility] CLIA [id number] [address] [place], [place] [address] [place] [address] [place] DIAGNOSIS COMMENT Comment A: The histo logic features in these polyps do not reach our threshold for sessile serrated adenoma/polyp. Nonetheless, given the anatomic location, close colonoscopic follow-up is recommended. [facility] Comment on above: Order Comment: Juani men Type: TISSUE SPECIMEN Ordering Facility: [facility] Address: [address] [place] [address] Performed By: #### S #### [facility] CLIA [id number] [address] [place] [address] OF [place] FINAL DIAGNOSIS [facility] Comment on above: Order Comment: Mejia mckenzie Type: TISSUE SPECIMEN Ordering Facility: [facility] Address: [address] [place] [address] Result Comment: A. A scending colon polyps, biopsy: -Tubular adenoma fragments (x4). -Separate fragments of serrated polyp, see comment. B. Sigmoid colon polyp at 40 cm, biopsy: -Hyperplastic polyp. C. Sigmoid colon polyps, biopsy: -Multiple fragments of hyperplastic polyps. D. Rectum polyps, biopsy: -Tubular adenoma fragments (x 2). -Multiple fragments of hyperplastic polyps. Performed By: #### S #### [facility] CLIA [id number] [address] [place] [address] OF [facility] FINAL PERFORMING LAB [facility] Comment on above: Order Comment: Mejia mckenzie Type: TISSUE SPECIMEN Ordering Facility: [facility] Address: [address] [place] [address] Result Comment: Diag nostic interpretation performed at [facility], [address] [place] [address] CLIA# [id number] Rooter Operator: Marek Martines M.D. Performed By: #### S #### [facility] CLIA [id number] [address] [place] [address] STATES [place] GROSS DESCRIPTION [facility] Comment on above: Order Comment: Mejia mckenzie Type: TISSUE SPECIMEN Ordering Facility: [facility] Address: [address] [place] [address] Result Comment: A. C olon, Ascending Polyp Received in formalin are multiple pieces of srivastava, soft tissue aggregating to 1.7 x 0.2 x 0.2 cm. Totally submitted in one cassette. B. Colon, Sigmoid, Polyp Received in formalin is a segment of red-brown, polypoid tissue measuring 0.9 x 0.8 x 0.6 cm. No stalk is present. The line of resection is present. The specimen is bisected. Totally submitted in one cassette C. Colon, Sigmoid, Polyp Received in formalin are multiple pieces of srivastava, soft tissue aggregating to 0.9 x 0.2 x 0.2 cm. Totally submitted in one cassette. D. Rectum, Polyp Received in formalin are multiple segments of srivastava, polypoid tissue ranging in size from 0.9 x 0.3 cm to 0.2 x 0.1 x 0.1 cm. No stalks are present. The lines of resection are present. The larger specimen is bisected. The remaining specimen are not sectioned. Totally submitted two cassettes. Gross examination performed at [facility], [address] [place] [address] May 13, 2024 3:41 PM Performed By: #### S #### [facility] CLIA [id number] [address] [place] [address] [place] [address] [place] HISTORY PHYSICALon HISTORY PHYSICAL HNO ID: [id number] Author: GILSON BAR DO Service: General Surgery Author Type: Physician Type: H&P Filed: 05/12/2024 18:00 Note Text: HISTORY AND PHYSICAL - GENERAL SURGERY PATIENT NAME: Good De Luna SERVICE DATE: May 12, 2024 SERVICE TIME: 5:55 PM ASSESSMENT AND PLAN Problem Active Hospital Problems Diagnosis Date Noted Rectal bleeding 05/12/2024 Assessment: 58yoM with cerebral palsy, JODEE, and rectal bleeding admitted to hospital prior to colonoscopy for colon prep administration. Plan: -GoLytely prep today -Okay for clears today, NPO tomorrow for colonoscopy -Continue home meds -CPAP for JODEE -Colonoscopy tomorrow. Anticipate discharge after procedure is complete Plan of care discussed with: Patient and RN. SUBJECTIVE HISTORY OF PRESENT ILLNESS: Good De Luna is a 58 year old male with a significant past surgical and medical history of cerebral palsy, congenital diplegia, spasticity, hx of prostate cancer, JODEE with CPAP, and diverticulitis. Patient presents with history of intermittent rectal bleeding. He was seen in clinic last week for the same chief complaint. Plan for colonoscopy (no prior colonoscopy, overdue). He was admitted for colonoscopy prep administration. PAST MEDICAL HISTORY: PAST MEDICAL HISTORY Diagnosis Date Acid reflux Anxiety state, unspecified Arthritis Cancer (HCC) Cerebral palsy (HCC) Congenital diplegia (HCC) Diverticulitis GERD (gastroesophageal reflux disease) JODEE on CPAP Sleep apnea 09/22/2008 Spinal stenosis Unspecified hypothyroidism PAST SURGICAL HISTORY: PAST SURGICAL HISTORY Procedure Laterality Date PAST SURGICAL HISTORY OF trigger finger procedure as a child TONSILLECTOMY HX TONSILLECTOMY PRIMARY/SECONDARY Tonsillectomy FAMILY HISTORY: FAMILY HISTORY Adopted: Yes Problem Relation Age of Onset Diabetes Mother Thyroid Maternal Grandmother SOCIAL HISTORY: Social History Tobacco Use Smoking status: Former Current packs/day: 0.00 Average packs/day: 1 pack/day for 30.0 years (30.0 ttl pk-yrs) Types: Cigarettes Start date: 07/29/1993 Quit date: 07/29/2023 Years since quittin.7 Smokeless tobacco: Never Tobacco comments: Pt has cut back to 1/4 pack daily. Vaps off and on Vaping Use Vaping status: Some Days Substance Use Topics Alcohol use: Yes Comment: 3/4 beers per week Drug use: No MEDICATIONS: levothyroxine (SYNTHROID) 150 mcg tablet, Take 1 tablet by mouth once daily., Disp: 90 tablet, Rfl: 3, 05/12/2024 omeprazole (PRILOSEC) 20 mg capsule, take 1 capsule by mouth once daily, Disp: 90 capsule, Rfl: 3, 05/12/2024 cholecalciferol, vitamin D3, (VITAMIN D3 ORAL), Take 2,000 mcg by mouth once daily., Disp: , Rfl: , 05/11/2024 citalopram (CELEXA) 40 mg tablet, Take 1 tablet by mouth once daily., Disp: 90 tablet, Rfl: 3, 05/12/2024 CPAP, Initiate CPAP @ 7 cm of water with humidification. Mask (per patient preference) optional chin strap (if indicated) , filters, tubing, humidifier and lifetime supplies., Disp: 1 Each, Rfl: 0, 05/11/2024 multivit-min/folic/vit K/lycop (MEN'S 50 PLUS MULTIVITAMIN ORAL), Take 1 tablet by mouth once daily. , Disp: , Rfl: , Unknown vitamin b complex capsule, Take 1 capsule by mouth once daily. (Patient not taking: Reported on 05/08/2024), Disp: , Rfl: , Unknown Current Facility-Administered Medications Medication Dose Route Frequency [START ON 05/13/2024] pantoprazole DR 20 mg tab(s) (PROTONIX) 20 mg ORAL DAILY [START ON 05/13/2024] citalopram 40 mg tab(s) (CeleXA) 40 mg ORAL DAILY [START ON 05/13/2024] levothyroxine 150 mcg (SYNTHROID) 150 mcg ORAL DAILY cholecalciferol 1,000 Units tab(s) (VITAMIN D3) 1,000 Units ORAL DAILY multivitamin-ferrous fumarate-folic acid 1 tablet (CENTRUM) 1 tablet ORAL DAILY ALLERGIES: ALLERGIES No Known Allergies OBJECTIVE PHYSICAL EXAM: BP 111/58 Pulse 51 Temp (Src) 98.2 (Oral) Resp 18 Ht 5' 5 (1.65m) SpO2 96% O2 Therapy: Room Air GENERAL: Alert, oriented, no acute distress LUNGS: Unlabored breathing HEART: RR DATA: Diagnostic tests reviewed for today's visit: Most recent labs and imaging results. CBC: No results for input(s): WBC, RBC, HB, HCT, PLT, MCV, MCH, MPV, RDW in the last 24 hours. Coags: No results for input(s): PT, INR, APTT in the last 24 hours. CMP: No results for input(s): NA, K, CHLOR, CO2, BUN, CREAT, GLUC, TPROT, CA, MG, ALBUMIN, TBILI, ALKPHOS, ALT, AST, ANION in the last 24 hours. Signature: Gilson Bar DO Date: May 12, 2024 Time: 5:55 PM [facility] 05-08-2024 [facility] Office Visit (GENSWS ) GOOD DE LUNA ([id number]) 1965 M Date Time Provider Department 05/08/24 1:00 PM GILSON BAR During your visit today, we recorded the following information about you: Pulse Blood pressure Weight 63/minute 101/64 101.6 kg Arlene Baker MA 05/08/2024 1:02 PM Signed REVIEW OF SYSTEMS: General: The patient denies fatigue, denies weight loss, denies weight gain, denies feeling hot, and denies feelings of cold. Eyes: The patient denies glaucoma, denies eye injury/surgery, wears glasses or contacts. Ear/Nose/Throat: The patient NOTES allergies, denies hayfever, denies ear infections, and denies bloody noses. Cardiovascular: The patient denies chest pain, denies heart disease, denies high blood pressure,denies cardiac stent, denies prior heart attack, denies irregular heart beat, denies high cholesterol, denies poor circulation, denies heart failure, other cardiac issues, denies claudication, NOTES cold feet, denies peripheral arterial stent. Respiratory: The patient denies tuberculosis, denies pneumonia, denies frequent cough, denies pulmonary embolism, denies shortness of breath, and denies coughing up blood. Gastrointestinal: The patient denies difficulty swallowing, NOTES acid reflux, denies ulcers, denies vomiting, denies jaundice/hepatitis, denies gallbladder problems, denies black or tarry stools, denies hemorrhoids, denies bleeding from rectum, NOTES diverticulitis, denies constipation, denies diarrhea, denies loss of stool control, and denies hernias. Kidney/Bladder: The patient denies kidney stones, denies urine infections, and denies bloody urine. Skin: The patient denies a history of skin cancer, denies bleeding/changing moles, and denies a history of skin rash. Neurologic: The patient denies a history of epilepsy/convulsions, denies headaches, denies head/spinal injuries, and denies stroke/TIA. Psychiatric: The patient denies psychiatric medications, NOTES depression, and denies voices, denies substance abuse. Endocrine: The patient NOTES thyroid disorders, denies diabetes, and denies hormonal problems. Hematologic: The patient denies a history of bruising, denies bleeding, and denies anemia, denies blood clots. Infections: The patient denies a history of measles and mumps, denies rheumatic fever, and denies sexually transmitted diseases. Musculoskeletal: The patient denies back pain/injury, denies back problems, denies sciatica, denies knee/foot trouble, NOTES arthritis, or denies gout. When was patient's last Mammogram screening? N/A Last Colonoscopy: NONE TAWANNA Correia Caitlin C, 05/12/2024 5:55 PM Signed General Surgery Consult REASON FOR VISIT Good De Luna is a 58 year old male who is scheduled for a consult at the request of Brian Ahmadi for diverticulitis. My final recommendations will be communicated back to the requesting physician by the way of the shared medical record, fax, or via US Mail History of Present Illness: Good De Luna is a 58 year old male with contributing past medical and surgical history significant for cerebral palsy, congenital diplegia, spasticity, hx of prostate cancer, sleep apnea, and diverticulitis. The patient presents with rectal bleeding. Bleeding is intermittent and self-resolving. Occurs with bowel movements. Blood is on the toilet paper, rarely with stool. No melena. CT Ab/P 06/08/2021 showed diverticulosis without evidence of diverticulitis. No prior colonoscopy. PAST MEDICAL HISTORY Diagnosis Date Acid reflux Anxiety state, unspecified Arthritis Cancer (HCC) Cerebral palsy (HCC) Congenital diplegia (HCC) Diverticulitis GERD (gastroesophageal reflux disease) JODEE on CPAP Sleep apnea 09/22/2008 Spinal stenosis Unspecified hypothyroidism PAST SURGICAL HISTORY Procedure Laterality Date PAST SURGICAL HISTORY OF trigger finger procedure as a child TONSILLECTOMY HX TONSILLECTOMY PRIMARY/SECONDARY Tonsillectomy FAMILY HISTORY Adopted: Yes Problem Relation Age of Onset Diabetes Mother Thyroid Maternal Grandmother Social History Tobacco Use Smoking status: Former Current packs/day: 0.00 Average packs/day: 1 pack/day for 30.0 years (30.0 ttl pk-yrs) Types: Cigarettes Start date: 07/29/1993 Quit date: 07/29/2023 Years since quittin.7 Smokeless tobacco: Never Tobacco comments: Pt has cut back to 1/4 pack daily. Vaps off and on Vaping Use Vaping status: Some Days Substance Use Topics Alcohol use: Yes Comment: 3/4 beers per week Drug use: No The patient has the following: Problem List Noted Noted By Resolved Resolved By Diverticulitis 04/30/2024 Brian Ahmadi, PHYSICIAN UNDERWRITER.REBRANDER No Recurrent major depressive disorder, remission status unspecified (HCC) 10/17/2023 Mathew Cobian MD No Prostate cancer ([facility]) 10/17/2023 E (more content not included)... Normal [facility] HISTORY PHYSICALon HISTORY PHYSICAL HNO ID: [id number] Author: GILSON BAR, DO Service: ? Author Type: Physician Type: H&P Filed: 05/12/2024 17:55 Note Text: General Surgery Consult REASON FOR VISIT Good De Luna is a 58 year old male who is scheduled for a consult at the request of Brian Ahmadi for diverticulitis. My final recommendations will be communicated back to the requesting physician by the way of the shared medical record, fax, or via US Mail History of Present Illness: Good De Luna is a 58 year old male with contributing past medical and surgical history significant for cerebral palsy, congenital diplegia, spasticity, hx of prostate cancer, sleep apnea, and diverticulitis. The patient presents with rectal bleeding. Bleeding is intermittent and self-resolving. Occurs with bowel movements. Blood is on the toilet paper, rarely with stool. No melena. CT Ab/P 06/08/2021 showed diverticulosis without evidence of diverticulitis. No prior colonoscopy. PAST MEDICAL HISTORY Diagnosis Date Acid reflux Anxiety state, unspecified Arthritis Cancer (HCC) Cerebral palsy (HCC) Congenital diplegia (HCC) Diverticulitis GERD (gastroesophageal reflux disease) JODEE on CPAP Sleep apnea 09/22/2008 Spinal stenosis Unspecified hypothyroidism PAST SURGICAL HISTORY Procedure Laterality Date PAST SURGICAL HISTORY OF trigger finger procedure as a child TONSILLECTOMY HX TONSILLECTOMY PRIMARY/SECONDARY Tonsillectomy FAMILY HISTORY Adopted: Yes Problem Relation Age of Onset Diabetes Mother Thyroid Maternal Grandmother Social History Tobacco Use Smoking status: Former Current packs/day: 0.00 Average packs/day: 1 pack/day for 30.0 years (30.0 ttl pk-yrs) Types: Cigarettes Start date: 07/29/1993 Quit date: 07/29/2023 Years since quittin.7 Smokeless tobacco: Never Tobacco comments: Pt has cut back to 1/4 pack daily. Vaps off and on Vaping Use Vaping status: Some Days Substance Use Topics Alcohol use: Yes Comment: 3/4 beers per week Drug use: No The patient has the following: Problem List Noted Noted By Resolved Resolved By Diverticulitis 04/30/2024 Brian Ahmadi APRN.REBRANDER No Recurrent major depressive disorder, remission status unspecified (HCC) 10/17/2023 Mathew Cobian MD No Prostate cancer (HCC) 10/17/2023 Mathew Cobian MD No Congenital diplegia (HCC) 05/27/2021 Bebb, Haylie, PT, DPT No Spasticity 05/27/2021 Bebb, Haylie, PT, DPT No Costochondritis 05/27/2021 Bebb, Haylie, PT, DPT No Localized osteoporosis ([place]) 05/27/2021 Haylie Cornelius, PT, DPT No Cerebral palsy (HCC) Mathew Cobian MD No Nicotine use disorder, F17.2 02/11/2019 Zabrina Cevallos, DO No Back pain 02/10/2019 Zabrina Cevallos, DO No Chronic bilateral low back pain with right-sided sciatica 01/10/2018 Ray Giraldo PA-C No Spinal stenosis of lumbar region 12/12/2017 Brian Ahmadi, KALEB.REBRANDER No Overview Signed 12/12/2017 7:47 AM by Brian Ahmadi (Cotton Machine Operator) MRI 11/2017 [facility] Thoracic or lumbosacral neuritis or radiculitis, unspecified 04/25/2014 Chuyita Boyer, PT No Bilateral hip pain 04/17/2009 O Memo, Xiomy (Pt)(Hist) No SI (sacroiliac) joint dysfunction 04/17/2009 O Memo, Xiomy (Pt)(Hist) No Hypothyroidism 03/27/2009 Mathew Cobian MD No Anxiety state 03/27/2009 Mathew Cobian MD No Sleep apnea 09/22/2008 Mathew Cobian MD No MEDICATIONS No current facility-administered medications for this visit. No current outpatient medications on file. Facility-Administered Medications Ordered in Other Visits Medication Dose Route Frequency Provider Last Rate Last Admin [START ON 05/13/2024] pantoprazole DR 20 mg tab(s) (PROTONIX) 20 mg ORAL DAILY Angelika Gonzalez MD [START ON 05/13/2024] citalopram 40 mg tab(s) (CeleXA) 40 mg ORAL DAILY Angelika Gonzalez MD [START ON 05/13/2024] levothyroxine 150 mcg (SYNTHROID) 150 mcg ORAL DAILY Angelika Gonzalez MD cholecalciferol 1,000 Units tab(s) (VITAMIN D3) 1,000 Units ORAL DAILY Angelika Gonzalez MD multivitamin-ferrous fumarate-folic acid 1 tablet (CENTRUM) 1 tablet ORAL DAILY Angelika Gonzalez MD CURRENT ALLERGIES ALLERGIES No Known Allergies REVIEW OF SYSTEMS PAIN ASSESSMENT: Pain Pain Level: 4 Description: Aching Duration Units: Days Frequency: Continuous GENERAL: No weight loss, malaise or fevers. RESPIRATORY: Negative for cough, hemoptysis, wheezing, dyspnea or shortness of breath. CARDIOVASCULAR: Negative for chest pain, leg swelling, or palpitations. GI: Intermittent rectal bleeding. Denies nausea, vomiting, diarrhea, or constipation. PHYSICAL EXAMINATION BP 101/64 Pulse 63 Wt 224 lb (101.6kg) SpO2 95% General Appearance: Well appearing, alert, no acute distress Lungs: Lungs clear to auscultation. No wheezing, rhonchi, rales Heart: RRR without murmur, gallop, or rubs. No ectopy Abdomen: Abdomen soft, non-tender. Bowel sounds normal. No masses, organomegaly Anorectal: D (more content not included)... Normal [facility] CNOVon 05-03-2024 CN Office Visit (FAMLaryWS ) GOOD DE LUNA ([id number]) 1965 M Date Time Provider Department 05/03/24 10:40 AM BRIAN AHMADI During your visit today, we recorded the following information about you: Temperature Pulse Respiration Blood pressure 97.7 degrees 79/minute 20/minute 120/80 Weight 100.7 kg Brian Ahmadi APRN.REBRANDER 05/03/2024 10:46 AM Signed Chief Complaint Patient presents with: Follow Up HPI Good De Luna is a 58 year old male who presents here today for Above Complaints. Here with daughter. Patient is here for close follow-up from a recent bout of diverticulitis. Patient was in our office 3 days ago after being on Augmentin for 4 days. At the time of her last appointment, left lower quadrant discomfort was still ongoing. He was having bloody bowel movements almost every day to every other day. I did prescribe him Omnicef and Flagyl as I felt he was not responding to the Augmentin. He has not started the Omnicef and Flagyl and actually finished the Augmentin. He actually feels better today. He is without fever. Left lower quadrant pain is resolved. He is eating a cookie at the time of our appointment in the office. He has been following a better diet which includes rice, chicken, green vegetables. He states that his last bowel movement was more formed, still had some blood in it but not in the bowl. He does have a appointment with general surgery on May 08 to be evaluated for the need for colonoscopy. Past medical history, appointments, medications, allergies reviewed. EXAM: BP 120/80 Pulse 79 Temp 36.5 ?C (97.7 ?F) Resp 20 Wt 100.7 kg (222 lb) SpO2 98% BMI 36.94 kg/m? General Appearance: Well appearing, alert, in no acute distress, well-hydrated, well nourished.. Lungs: Lungs clear to auscultation. No wheezing, rhonchi, rales.. Heart: RRR without murmur, gallop, or rubs. No ectopy. Abdomen: Normal abdominal exam, Abdomen soft, non-tender. Bowel sounds normal. No masses, organomegaly. ASSESSMENT/PLAN: 1. Diverticulitis - ICD9: 562.11, ICD10: K57.92 (primary diagnosis) -Resolving. Finishing Augmentin today. Continue with plan to see general surgery next week for further evaluation. 2. Bloody stools - ICD9: 578.1, ICD10: K92.1 -Slowing down with resolution of diverticulitis. Continue to see general surgery. Brian Ahmadi APRN.CNP RTO if symptoms return. This note was partly generated using Dragon voice recognition dictation and may contain some misspelled or inaccurate words missed on review. Allergies As of Date: 05/03/2024 (No Known Allergies) Date Reviewed: 05/03/2024 Reviewed by: Rola Riojas LPN - Fully Assessed Reason for Visit: Follow Up [171] Primary Visit Diagnosis:Diverticulitis [K57.92] Other Visit Diagnosis:Bloody stools [K92.1] Prescriptions as of 05/03/2024 - levothyroxine (SYNTHROID) 150 mcg tablet Take 1 tablet by mouth once daily. - omeprazole (PRILOSEC) 20 mg capsule take 1 capsule by mouth once daily - cholecalciferol, vitamin D3, (VITAMIN D3 ORAL) Take 2,000 mcg by mouth once daily. - citalopram (CELEXA) 40 mg tablet Take 1 tablet by mouth once daily. - CPAP Initiate CPAP @ 7 cm of water with humidification. Mask (per patient preference) optional chin strap (if indicated) , filters, tubing, humidifier and lifetime supplies. - multivit-min/folic/vit K/lycop (MEN'S 50 PLUS MULTIVITAMIN ORAL) Take 1 tablet by mouth once daily. - vitamin b complex capsule Take 1 capsule by mouth once daily. Problem List As Of Date 05/03/2024 Noted Resolved Sleep apnea [G47.30] 09/22/2008 Hypothyroidism [E03.9] 03/27/2009 Anxiety state [F41.1] 03/27/2009 Bilateral Hip Pain [M25.551, M25.552] 04/17/2009 SI (Sacroiliac) Joint Dysfunction [M53.3] 04/17/2009 Thoracic or lumbosacral neuritis or radiculitis*04/25/2014 Spinal stenosis of lumbar region [M48.061] 12/12/2017 Chronic bilateral low back pain with right-side*01/10/2018 Back pain [M54.9] 02/10/2019 Nicotine use disorder, F17.2 [F17.200] 02/11/2019 Cerebral palsy (HCC) [G80.9] Congenital diplegia (HCC) [G80.8] 05/27/2021 Spasticity [R25.2] 05/27/2021 Costochondritis [M94.0] 05/27/2021 Localized osteoporosis ([place]) [M81.6] 05/27/2021 Recurrent major depressive disorder, remission *10/17/2023 Prostate cancer (HCC) [C61] 10/17/2023 Diverticulitis [K57.92] 04/30/2024 Medications Discontinued During This Encounter Prescriptions - cefdinir (OMNICEF) 300 mg capsule (Discontinued) Take 1 capsule by mouth two times a day for 7 days. - metroNIDAZOLE (FLAGYL) 500 mg tablet (Discontinued) Take 1 tablet by mouth every 8 hours for 7 days. Level of Service: OFFICE/OUTPATIENT ESTABLISHED LOW MDM 20 MIN [07195] Additional E/M codes: VISIT CPLX INHERENT EANDM ASSOC WITH MED * Letter Text Encounter Status:Closed by ERIC AHMADI (more content not included)... Normal [facility] PSA SerPl-ncon 05-03-2024 Prostate specific Ag [Mass/Vol] 1.21 ng/mL Normal <2.60 [facility] Comment on above: Order Comment: Speci men Type: BLOOD SPECIMENOrdering Facility: [facility] Address: [address] [place] [address] Result Comment: Tota l PSA test methodology used is the Electrochemiluminescence Immunoassay by [employer]. Total PSA values by differing methodologies cannot be interchanged. Performed By: #### 2 857-1 ####[facility] LABCLIA [id number] [place] [address] [place] CNOVon 04-30-2024 CN Office Visit (FAMPWS ) GOOD DE LUNA ([id number]) 1965 M Date Time Provider Department 04/30/24 1:20 PM BRIAN AHMADI During your visit today, we recorded the following information about you: Temperature Pulse Respiration Blood pressure 97.7 degrees 64/minute 16/minute 114/76 Weight 103 kg DaianaBrian [email or web address].[email or web address] 04/30/2024 2:12 PM Signed Chief Complaint Patient presents with: ER F/U: [facility] ER diverticulitis 04/23/2024 HPI Good De Luna is a 58 year old male who presents here today for Hospital Discharge Follow up. follow up for diverticulitis. Patient presenting for emergency room follow-up. Patient went to [facility] on April 23 for complaints of rectal bleeding. WBC 10,000. ECG normal. CT of the abdomen pelvis showed findings consistent with diverticulitis. Was treated with 7 days of Augmentin twice daily. Tomorrow is his last day of the regimen. Patient states that pain is no different. Rating 4 out of 10. Patient continues to have bloody bowel movements. He states that he did not have 1 today or yesterday. On Monday he had 1 bowel movement which was bloody. He was originally referred to Dr. Wood at [facility] but has not made an appointment. We will get him to general surgery to have an evaluation for endoscopic. He denies any fevers. Past medical history, appointments, medications, allergies reviewed. EXAM: BP 114/76 Pulse 64 Temp 36.5 ?C (97.7 ?F) Resp 16 Wt 103 kg (227 lb) SpO2 98% BMI 37.77 kg/m? General Appearance: Well appearing, alert, in no acute distress, well-hydrated, well nourished.. Lungs: Lungs clear to auscultation. No wheezing, rhonchi, rales.. Heart: RRR without murmur, gallop, or rubs. No ectopy. Abdomen: Abdomen soft but moderately tender in the left lower, left mid quadrant. Bowel sounds are normoactive. ASSESSMENT/PLAN: 1. Diverticulitis - ICD9: 562.11, ICD10: K57.92 (primary diagnosis) -Diagnosed in [facility]. Last day of Augmentin. Not responding to treatment. Continues to have left sided abdominal pain. Continues to have 1 bloody bowel movement every other day. Switch treatment to Omnicef and Flagyl. See general surgery. I would like to see him back in 3 days to evaluate treatment. If he is not improving then we will have to send him to the hospital. I discussed a bland diet or a clear liquid diet for bowel rest. I discussed if he were to get fevers, chills, worsening left-sided dental pain, multiple bloody stools a day, or nausea, he would need to go to the emergency room immediately. He verbalized understanding. - CEFDINIR 300 MG CAPSULE - METRONIDAZOLE 500 MG TABLET - CONSULT TO GENERAL SURGERY 2. Bloody stools - ICD9: 578.1, ICD10: K92.1 - Will be scoped. Treat diverticulitis above - CONSULT TO GENERAL SURGERY 3. Encounter for immunization - ICD9: V03.89, ICD10: Z23 - PFIZER-BIONTECH COVID-19 VACCINE AGE 12+ YR (COMIRNATY) Brian Ahmadi APRN.REBRANDER RTO in 3 days I spent a total of 31 minutes on the date of the service which included preparing to see the patient, [id number]-in-fdct patient care, completing clinical documentation, obtaining and/or reviewing separately obtained history, performing a medically appropriate examination, counseling and educating the patient/family/caregiver, and ordering medications, tests, or procedures. This note was partly generated using [employer] voice recognition dictation and may contain some misspelled or inaccurate words missed on review. Allergies As of Date: 04/30/2024 (No Known Allergies) Date Reviewed: 04/30/2024 Reviewed by: Rola Riojas LPN - Fully Assessed Reason for Visit: ER F/U [41] Cmt: [facility] ER diverticulitis 04/23/2024 Primary Visit Diagnosis:Diverticulitis [K57.92] Other Visit Diagnoses:Bloody stools [K92.1] Encounter for immunization [Z23] Order(s):PFIZER-BIONTECH COVID-19 VACCINE AGE 12+ YR (COMIRNATY) [[id number]] Order #: [id number] cefdinir (OMNICEF) 300 mg capsuleTake 1 capsule by mouth two times a day for 7 days.Disp: 14 capsuleRfl: 0 metroNIDAZOLE (FLAGYL) 500 mg tabletTake 1 tablet by mouth every 8 hours for 7 days.Disp: 21 tabletRfl: 0 CONSULT TO GENERAL SURGERY [9011] Order #: [id number]: 1 FUTURE Prescriptions as of 04/30/2024 - cefdinir (OMNICEF) 300 mg capsule Take 1 capsule by mouth two times a day for 7 days. - metroNIDAZOLE (FLAGYL) 500 mg tablet Take 1 tablet by mouth every 8 hours for 7 days. - levothyroxine (SYNTHROID) 150 mcg tablet Take 1 tablet by mouth once daily. - omeprazole (PRILOSEC) 20 mg capsule take 1 capsule by mouth once daily - cholecalciferol, vitamin D3, (VITAMIN D3 ORAL) Take 2,000 mcg by mouth once daily. - citalopram (CELEXA) 40 mg tablet Take 1 tablet by mouth once daily. - CPAP Initiate CPAP @ 7 cm of water with humidification. Mask (per patient preference (more content not included)... Normal [facility] CNCOon 04-24-2024 CNCO Letter Text Normal [facility] 12 Lead EKGon 04-23-2024 12 Lead EKG [facility] Cardiovascular Services [address] [place] [address] 12 Lead EKG 04/23/24 1556 MR#: [id number] Acct: [id number] Name: GOOD DE LUNA Rep #: [id number] : 1965 58 From: Erick Sigala MD Attending Dr: Status: DEP ER Ordering Dr: Franklyn Donaldson DO Date: 04/23/24 Location: ED Sex: M C Admitted: Test Reason : GENERAL Blood Pressure : / mmHG Vent. Rate : 054 BPM Atrial Rate : 054 BPM P-R Int : 150 ms QRS Dur : 086 ms QT Int : 434 ms P-R-T Axes : 067 070 064 degrees QTc Int : [address] T wave abnormality, consider anterior ischemia Abnormal ECG Confirmed by ERICK SIGALA MD ([id number]), mapping editor RENARD WILSON ([id number]) on 04/25/2024 1:20:26 PM Referred By: Confirmed By:ERICK SIGALA MD 04/25/24 1320 Date Erick Sigala MD CC: Dr. Mathew Cobian MD; Dr. Franklyn Donaldson DO Signed Normal [facility] CBC W/Diff, Automatedon 10-0 Absolute Neut Normal 2.0-7.7 [facility] Comment on above: Result Comment: Canc elled via OM: MD Ordered Performed By: #### L 100.0100 #### [facility] [address] [place], [address] HCT Normal 40-54 [facility] Comment on above: Result Comment: Canc elled via OM: MD Ordered Performed By: #### L 100.0100 #### [facility] [address] [place], [address] HGB Normal 13.0-16.5 [facility] Comment on above: Result Comment: Canc elled via OM: MD Ordered Performed By: #### L 100.0100 #### [facility] [address] [place], [address] MCH Normal 27.0-32.0 [facility] Comment on above: Result Comment: Canc elled via OM: MD Ordered Performed By: #### L 100.0100 #### [facility] [address] [place], [address] MCHC Normal 32-36 [facility] Comment on above: Result Comment: Canc elled via OM: MD Ordered Performed By: #### L 100.0100 #### [facility] [address] [place], [address] MCV Normal 80-94 [facility] Comment on above: Result Comment: Canc elled via OM: MD Ordered Performed By: #### L 100.0100 #### [facility] [address] [place], [address] NEUT% Normal 47-70 [facility] Comment on above: Result Comment: Canc elled via OM: MD Ordered Performed By: #### L 100.0100 #### [facility] [address] [place], [address] PLT Normal 150-450 [facility] Comment on above: Result Comment: Canc elled via OM: MD Ordered Performed By: #### L 100.0100 #### [facility] [address] [place], [address] RBC Normal 4.6-6.2 [facility] Comment on above: Result Comment: Canc elled via OM: MD Ordered Performed By: #### L 100.0100 #### [facility] [address] [place], [address] RDW CV Normal 11.6-14.6 [facility] Comment on above: Result Comment: Canc elled via OM: MD Ordered Performed By: #### L 100.0100 #### [facility] [address] [place], [address] RDW SD Normal 35.1-43.9 [facility] Comment on above: Result Comment: Canc elled via OM: MD Ordered Performed By: #### L 100.0100 #### [facility] [address] [place], [address] WBC Normal 4.4-11.0 [facility] Comment on above: Result Comment: Canc elled via OM: MD Ordered Performed By: #### L 100.0100 #### [facility] [address] [place], [address] Absolute Lymph 2.33 X10 3/uL Normal 0.83-4.51 [facility] Comment on above: Performed By: #### B TS, L500.4050, L501.2450, L100.0100, L501.4020 #### [facility] [address] [place], [address] Absolute Neut 6.6 X10 3/uL Normal 2.0-7.7 [facility] Comment on above: Performed By: #### B TS, L500.4050, L501.2450, L100.0100, L501.4020 #### [facility] [address] [place], [address] Basophils/100 WBC (Bld) 0.3 % Normal 0-1 [facility] Comment on above: Performed By: #### B TS, L500.4050, L501.2450, L100.0100, L501.4020 #### [facility] [address] [place], [address] Eosinophils/100 WBC (Bld) 1.2 % Normal 0-5 [facility] Comment on above: Performed By: #### B TS, L500.4050, L501.2450, L100.0100, L501.4020 #### [facility] [address] [place], [address] Erythrocyte distribution width (RBC) [Ratio] 12.5 % Normal 11.6-14.6 [facility] Comment on above: Performed By: #### B TS, L500.4050, L501.2450, L100.0100, L501.4020 #### [facility] [address] [place], [address] Hematocrit (Bld) [Volume fraction] 42.2 % Normal 40-54 [facility] Comment on above: Performed By: #### B TS, L500.4050, L501.2450, L100.0100, L501.4020 #### [facility] [address] [place], [address] Hemoglobin (Bld) [Mass/Vol] 13.7 g/dL Normal 13.0-16.5 [facility] Comment on above: Performed By: #### B TS, L500.4050, L501.2450, L100.0100, L501.4020 #### [facility] [address] [place], [address] IG% 0.700 Normal 0.0-0.9 [facility] Comment on above: Result Comment: IG% - Immature Granulocytes (promyelocytes, myelocytes and metamyelocytes) > 1% indicates that a LEFT SHIFT is Present. Performed By: #### B TS, L500.4050, L501.2450, L100.0100, L501.4020 #### [facility] [address] [place], [address] Lymphocytes/100 WBC (Bld) 23.3 % Normal 19-41 [facility] Comment on above: Performed By: #### B TS, L500.4050, L501.2450, L100.0100, L501.4020 #### [facility] [address] [place], [address] MCH (RBC) [Entitic mass] 29.4 pg Normal 27.0-32.0 [facility] Comment on above: Performed By: #### B TS, L500.4050, L501.2450, L100.0100, L501.4020 #### [facility] [address] [place], [address] MCHC (RBC) [Mass/Vol] 32.5 g/dL Normal 32-36 [facility] Comment on above: Performed By: #### B TS, L500.4050, L501.2450, L100.0100, L501.4020 #### [facility] [address] [place], [address] MCV (RBC) [Entitic vol] 90.6 fL Normal 80-94 [facility] Comment on above: Performed By: #### B TS, L500.4050, L501.2450, L100.0100, L501.4020 #### [facility] [address] [place], [address] Monocytes/100 WBC (Bld) 8.4 % Normal 0-10 [facility] Comment on above: Performed By: #### B TS, L500.4050, L501.2450, L100.0100, L501.4020 #### [facility] [address] [place], [address] Neutrophils/100 WBC (Bld) 66.1 % Normal 47-70 [facility] Comment on above: Performed By: #### B TS, L500.4050, L501.2450, L100.0100, L501.4020 #### [facility] [address] [place], [address] Nucleated RBC (Bld) [#/Vol] 0 10*3/uL Normal 0-5 [facility] Comment on above: Performed By: #### B TS, L500.4050, L501.2450, L100.0100, L501.4020 #### [facility] [address] [place], [address] Platelet mean volume (Bld) [Entitic vol] 11.4 fL Normal 6.2-12.0 [facility] Comment on above: Performed By: #### B TS, L500.4050, L501.2450, L100.0100, L501.4020 #### [facility] [address] [place], [address] Platelets (Bld) [#/Vol] 244 10*3/uL Normal 150-450 [facility] Comment on above: Performed By: #### B TS, L500.4050, L501.2450, L100.0100, L501.4020 #### [facility] [address] [place], [address] RBC (Bld) [#/Vol] 4.66 10*6/uL Normal 4.6-6.2 [facility] Comment on above: Performed By: #### B TS, L500.4050, L501.2450, L100.0100, L501.4020 #### [facility] [address] [place], [address] RDW SD 40.8 fl Normal 35.1-43.9 [facility] Comment on above: Performed By: #### B TS, L500.4050, L501.2450, L100.0100, L501.4020 #### [facility] [address] [place], [address] WBC (Bld) [#/Vol] 10.0 10*3/uL Normal 4.4-11.0 [facility] Comment on above: Performed By: #### B TS, L500.4050, L501.2450, L100.0100, L501.4020 #### [facility] [address] [place], [address] CTA Abd/Pelvis W/WO Contrast on 04-23-2024 CTA Abd/Pelvis W/WO Contrast [facility] Imaging Services [address] [place] [address] CTA Abd/Pelvis W/WO Contrast MR#: [id number] Acct: [id number] Name: GOOD DE LUNA Rep #: [id number] : 1965 M 58 From: Ronald Hood MD PCP: Dr. Mathew Cobian MD Status: [facility] ER Study: CTA Abd/Pelvis W/WO Contrast Date of Exam: 08/16 Exam# [id number] Ordering Dr: Franklyn Donaldson DO 4:[id number] INDICATION: abd pain, bloody bowel movements X2 EXAMINATION: CTA abdomen and pelvis - TECHNIQUE: Routine abdominal CT angiogram protocol was performed with IV contrast. MIP images provided. A radiation dose optimization technique was used for this scan. IV Contrast dosage and agent: Radiation dose DLP mGy / cm. COMPARISON: None. FINDINGS: Lung bases: Normal. Liver: Nonspecific fatty infiltrated liver without mass or bile duct dilatation Gallbladder: Normal. Spleen: Normal. Adrenal gland: Normal. Kidneys: Normal. No hydronephrosis or stone formation. Pancreas:Normal. Bowel gas pattern: Nonobstructive. Diverticular changes of the descending colon with subtle focal stranding in the fat at the level of the mid descending colon possibly representing mild acute diverticulitis Appendix: Normal. Free air: None. Free fluid: None. Pelvis: Pelvic organs: Nonspecific enlargement of prostate Bone survey: Lumbar spine demonstrates mild spondylosis No aggressive bony lesions. No acute fractures. Adenopathy: No significant pathologic adenopathy detected. Bilateral fat-containing inguinal hernias Vascular: Normal vascular anatomy, CT/CTA Abd/Pelvis W/WO Contrast IMPRESSION: Diverticulosis and findings suggestive of mild acute diverticulitis of the mid descending colon No focal extravasation of contrast within the bowel lumen to suggest acute GI hemorrhage Tagged radionuclide red blood cell study would be helpful for further evaluation if indicated Electronically Signed: Ronald Hood MD at 17:17 EDT , CC: Dr. Mathew Cobian MD; Dr. Franklyn Donaldson DO Claims Representative: Signed Normal [facility] Comprehensive Metabolic Prof ilon 04-23-2024 Albumin [Mass/Vol] 3.6 g/dL Normal 3.2-5.[address] [facility] Comment on above: Order Comment: 'TROP ' Serial specimen #1, #2 or #3: 1 Performed By: #### B TS, L500.4050, L501.2450, L100.0100, L501.4020 #### [facility] [address], [address] Albumin/Globulin [Mass ratio] 0.9 {ratio} Normal 0.9-2.4 [facility] [facility] Comment on above: Order Comment: 'TROP ' Serial specimen #1, #2 or #3: 1 Performed By: #### B TS, L500.4050, L501.2450, L100.0100, L501.4020 #### [facility] [address] [place], [address] ALK P 92 U/L Normal 45-117 [facility] Comment on above: Order Comment: 'TROP ' Serial specimen #1, #2 or #3: 1 Performed By: #### B TS, L500.4050, L501.2450, L100.0100, L501.4020 #### [facility] [address] [place], [address] ALT [Catalytic activity/Vol] 31 U/L Normal 16-61 [facility] Comment on above: Order Comment: 'TROP ' Serial specimen #1, #2 or #3: 1 Performed By: #### B TS, L500.4050, L501.2450, L100.0100, L501.4020 #### [facility] [address] [place], [address] AST [Catalytic activity/Vol] 15 U/L Normal 15-37 [facility] Comment on above: Order Comment: 'TROP ' Serial specimen #1, #2 or #3: 1 Performed By: #### B TS, L500.4050, L501.2450, L100.0100, L501.4020 #### [facility] [address] [place], [address] Bilirubin [Mass/Vol] 0.30 mg/dL Normal 0.20-1.00 [facility] Comment on above: Order Comment: 'TROP ' Serial specimen #1, #2 or #3: 1 Result Comment: For patients on eltrombopag therapy, use of Dimension [place] TBIL is not recommended. Performed By: #### B TS, L500.4050, L501.2450, L100.0100, L501.4020 #### [facility] [address] [place], [address] BUN/CRE 17.2 RATIO Normal 10-20 [facility] Comment on above: Order Comment: 'TROP ' Serial specimen #1, #2 or #3: 1 Performed By: #### B TS, L500.4050, L501.2450, L100.0100, L501.4020 #### [facility] [address] [place], [address] CA,Total 9.2 mg/dL Normal 8.5-10.1 [facility] Comment on above: Order Comment: 'TROP ' Serial specimen #1, #2 or #3: 1 Performed By: #### B TS, L500.4050, L501.2450, L100.0100, L501.4020 #### [facility] [address] [place], [address] Chloride [Moles/Vol] 107 mmol/L Normal 98-107 [facility] Comment on above: Order Comment: 'TROP ' Serial specimen #1, #2 or #3: 1 Performed By: #### B TS, L500.4050, L501.2450, L100.0100, L501.4020 #### [facility] [address] [place], [address] CO2 [Moles/Vol] 25.0 mmol/L Normal 21.0-32.0 [facility] Comment on above: Order Comment: 'TROP ' Serial specimen #1, #2 or #3: 1 Performed By: #### B TS, L500.4050, L501.2450, L100.0100, L501.4020 #### [facility] [address] [place], [address] Creatinine [Mass/Vol] 1.16 mg/dL Normal 0.70-1.30 [facility] Comment on above: Order Comment: 'TROP ' Serial specimen #1, #2 or #3: 1 Result Comment: The validity of the calculated GFR GFRAA in patients over 70 years has not been determined. Clinical correlation is essential. Performed By: #### B TS, L500.4050, L501.2450, L100.0100, L501.4020 #### [facility] [address] [place], [address] ECRCL 78.99 ml/min Normal [facility] Comment on above: Order Comment: 'TROP ' Serial specimen #1, #2 or #3: 1 Performed By: #### B TS, L500.4050, L501.2450, L100.0100, L501.4020 #### [facility] [address] [place], [address] EST GFR - AA 84 mL/min Normal >60 [facility] Comment on above: Order Comment: 'TROP ' Serial specimen #1, #2 or #3: 1 Result Comment: Afri can Lao GFR Calc Performed By: #### B TS, L500.4050, L501.2450, L100.0100, L501.4020 #### [facility] [address] [place], [address] GAP 6 Normal 5-15 [facility] Comment on above: Order Comment: 'TROP ' Serial specimen #1, #2 or #3: 1 Performed By: #### B TS, L500.4050, L501.2450, L100.0100, L501.4020 #### [facility] [address] [place], [address] GFR/1.73 sq M.predicted among non-blacks MDRD (S/P/Bld) [Vol rate/Area] 69 mL/min/{1.73_m2} Normal >60 [facility] Comment on above: Order Comment: 'TROP ' Serial specimen #1, #2 or #3: 1 Result Comment: Non- GFR Calc Performed By: #### B TS, L500.4050, L501.2450, L100.0100, L501.4020 #### [facility] [address] [place], [address] Globulin (S) [Mass/Vol] 4.0 g/dL Normal 2.2-4.2 [facility] Comment on above: Order Comment: 'TROP ' Serial specimen #1, #2 or #3: 1 Performed By: #### B TS, L500.4050, L501.2450, L100.0100, L501.4020 #### [facility] [address] [place], [address] Glucose [Mass/Vol] 96 mg/dL Normal 74-[address] [facility] Comment on above: Order Comment: 'TROP ' Serial specimen #1, #2 or #3: 1 Performed By: #### B TS, L500.4050, L501.2450, L100.0100, L501.4020 #### [facility] [address] [place], [address] Potassium [Moles/Vol] 4.0 mmol/L Normal 3.5-5.1 [facility] Comment on above: Order Comment: 'TROP ' Serial specimen #1, #2 or #3: 1 Performed By: #### B TS, L500.4050, L501.2450, L100.0100, L501.4020 #### [facility] [address] [place], [address] Sodium [Moles/Vol] 138 mmol/L Normal 136-[address] [facility] Comment on above: Order Comment: 'TROP ' Serial specimen #1, #2 or #3: 1 Performed By: #### B TS, L500.4050, L501.2450, L100.0100, L501.4020 #### [facility] [address] [place], [address] T PROT 7.6 g/dL Normal 6.4-8.2 [facility] Comment on above: Order Comment: 'TROP ' Serial specimen #1, #2 or #3: 1 Performed By: #### B TS, L500.4050, L501.2450, L100.0100, L501.4020 #### [facility] [address] [place], [address] Urea nitrogen [Mass/Vol] 20 mg/dL High 7-18 [facility] Comment on above: Order Comment: 'TROP ' Serial specimen #1, #2 or #3: 1 Performed By: #### B TS, L500.4050, L501.2450, L100.0100, L501.4020 #### [facility] [address] [place], [address] Emergency Department Summary on 04-23-2024 Emergency Department Summary [facility] Medical Records Department [address] [facility] [place] [address] Emergency Department Summary 04/23/24 MR#: [id number] Acct: [id number] Name: GOOD DE LUNA Rep #: [id number] : 1965 58 From: Franklyn Donaldson DO PCP: Dr. Mathew Cobian MD Status:REG ER Location: ED HPI History of Present Illness Chief Complaint: GI Bleed Narrative Narrative: Patient is a 58-year-old male with past medical history of anxiety, JODEE, cerebral palsy who presented to the emergency department with a chief complaint of blood in his stool and some abdominal pain. Patient states on Monday he had a bowel movement noted that he had bright red blood in his stool. He states that that only happened 1 time and then went away over the weekend. He states that then again today he noted that he had some abdominal pain and had a bowel movement which noted that he had bright red blood again which prompted him to come here for the valuation management. Patient denies any blood thinning medications. Patient otherwise feels well denies any sick contacts. [facility] Medical History Alcohol abuse Anxiety History of trigger finger Alcohol abuse Chronic pain Smoker CPAP (continuous positive airway pressure) dependence Sleep apnea Cerebral palsy Home Medications ???Medication ???Instructions ???Recorded ???Last Taken ???Type omeprazole 20 mg capsule,delayed 20 mg PO DAILY GERD 02/05/19 04/23/24 History release multivitamin 1 tab PO DAILY supplement 12/04/20 04/22/24 History acetaminophen 500 mg tablet 1,000 mg (2 x 500 mg) PO Q6H PRN 12/23/20 Unknown Rx PRN Pain Score 1-5 #0 tabs citalopram 40 mg tablet 40 mg PO DAILY #0 tabs 12/23/20 04/23/24 Rx lorazepam 1 mg tablet 1 mg PO Q8H PRN PRN Anxiety 02/27/22 04/22/24 History vitamin B complex 1 tab PO DAILY 02/27/22 04/22/24 History levothyroxine 175 mcg tablet 175 mcg PO DAILY 09/26/23 04/22/24 History amoxicillin 500 mg-potassium 1 tab PO Q12H 7 days #14 tabs 04/23/24 Unknown Rx clavulanate 125 mg tablet (Augmentin) Allergy/AdvReac Type Severity Reaction Status Date / Time No Known Allergies Allergy Verified 04/23/24 14:47 Family History Other Cancer Diabetes Surgical History History of tonsillectomy H/O hand surgery Social History household members: other details: Roommate who does not help him cook or clean. Smoking Status: Former smoker alcohol intake: current alcohol intake frequency: 3 or more drinks per day Alcohol type: hard liquor ROS ROS ED ROS Narrative Constitutional: Denies fevers, chills, headaches, lightness, dizziness Eyes: Denies change in vision double vision blurry vision Cardiovascular: Denies chest pain or palpitations Respiratory: Denies coughing wheezing shortness of breath Abdomen: Complains of abdominal pain and blood in stool as noted above denies vomiting or diarrhea : Denies any urinary symptoms Neurological: Denies any numbness, weakness, tingling Musculoskeletal: Denies back pain Skin: Denies rashes or lesions EXAM Physical Exam Narrative Exam Narrative: General: Patient lying in bed rest comfortably did not appear to be in acute distress Head: Atraumatic, normocephalic Eyes: PERRL bilateral, EOMI bilateral, no conjunctival injection noted Neck: Soft, supple, trachea midline Cardiovascular: Regular rate and rhythm no murmurs gallops rubs noted Respiratory: Clear to auscultation bilaterally no rales rhonchi or wheeze noted Abdomen: Soft, nondistended, n tender to palpation in the left lower quadrant no rebound or guarding on exam, bowel sounds present x 4 Extremities: +5/5 strength noted in the bilateral upper and lower extremities, no pedal edema exam Neurological: Patient follow commands knew that he was at [facility] years 2023 Skin: Warm, dry, intact Const Vital Signs: 04/23/24 14:47 04/23/24 16:58 04/23/24 18:00 Temperature 98.3 F Temperature Source Temporal Pulse Rate 57 L 58 L 55 L Respiratory Rate 14 14 16 Blood Pressure 137/73 H 134/84 H 130/83 H Blood Pressure Mean 94 100 98 Pulse Ox 99 98 97 Oxygen Delivery Method Room Air Room Air Room Air MDM MDM MDM Narrative Medical decision making narrative: Patient is a 58-year-old male who presents to the emergency department chief complaint of abdominal pain and hematochezia. Patient will have workup performed here on the differential diagnose includes but not limited to ischemic colitis, diverticulitis, hemorrhoids. Once workup is obtained reviewed he will be reevaluated. Patient CBC reviewed showed no evidence leukocy (more content not included)... Normal [facility] L501.4020on 04-23-2024 TROPONIN-I HS 6 pg/mL Normal 3.0-78.0 [facility] Comment on above: Order Comment: 'TROP ' Serial specimen #1, #2 or #3: 1 Result Comment: Ricki summers Note: New Test Units and Gender Specific Reference Ranges. For more information see Policy Stat Procedure [place] High Sensitivity Troponin (TNIH) and attachments. Performed By: #### B TS, L500.4050, L501.2450, L100.0100, L501.4020 ####[facility] [id number] [place], [address] Lactic Acidon 04-23-2024 Lactate [Moles/Vol] 1.0 mmol/L Normal 0.4-1.9 [facility] Comment on above: Order Comment: Y Performed By: #### L 379.3669 #### [facility] [address] [place], [address] Lipaseon 04-23-2024 Lipase [Catalytic activity/Vol] 32 U/L Normal 13-75 [facility] Comment on above: Order Comment: 'TROP ' Serial specimen #1, #2 or #3: 1 Result Comment: Ricki summers note: LIPASE revised reference range effective 22. New Lipase methodology. Expected to produce lower values than the previous assay method. NEW Reference Range: 13 - 75 U/L Performed By: #### B TS, L500.4050, L501.2450, L100.0100, L501.4020 ####[facility] [address] [place], [address] Stool Occult Blood iFOBon STOB Positive Normal [facility] Comment on above: Performed By: #### M 100.7900 #### [facility] [address] [place], [address] Type AND Screenon 04-23-2024 ABO and Rh group Nom (Bld) Blood group O Rh(D) positive Normal [facility] Comment on above: Order Comment: REDRA W. PREVIOUS SPECIMEN REJECTED DUE TOWRITING ON FENWAL BAND SMEARED OFF;ILLEGIBLE. 04/23/24 1613A Performed By: #### B TS ####[facility] [address] [place], [address] A1 CELL Not performed Normal [facility] Comment on above: Order Comment: A Result Comment: This specimen has been REJECTED due to Laboratory criteria: MisLabelled-WRITING ON FENWAL SMEARED OFF;ILLEGIBLE. 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 04/23/24 161 Performed By: #### B TS, L500.4050, L501.2450, L100.0100, L501.4020 #### [facility] [address] [place], [address] Ab SCREEN GEL Not performed Normal [facility] Comment on above: Order Comment: A Result Comment: This specimen has been REJECTED due to Laboratory criteria: MisLabelled-WRITING ON FENWAL SMEARED OFF;ILLEGIBLE. 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 04/23/241610 Performed By: #### B TS, L500.4050, L501.2450, L100.0100, L501.4020 #### [facility] [address] [place], [address] ABO and Rh group Nom (Bld) Test Not Performed Normal [facility] Comment on above: Order Comment: A Result Comment: This specimen has been REJECTED due to Laboratory criteria: MisLabelled-WRITING ON FENWAL SMEARED OFF;ILLEGIBLE. 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 04/23/241610 Performed By: #### B TS, L500.4050, L501.2450, L100.0100, L501.4020 #### [facility] [address] [place], [address] ANTI A Not performed Normal [facility] Comment on above: Order Comment: A Result Comment: This specimen has been REJECTED due to Laboratory criteria: MisLabelled-WRITING ON FENWAL SMEARED OFF;ILLEGIBLE. 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 04/23/241610 Performed By: #### B TS, L500.4050, L501.2450, L100.0100, L501.4020 #### [facility] [address] [place], [address] ANTI B Not performed Normal [facility] Comment on above: Order Comment: A Result Comment: This specimen has been REJECTED due to Laboratory criteria: MisLabelled-WRITING ON FENWAL SMEARED OFF;ILLEGIBLE. 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 04/23/241610 Performed By: #### B TS, L500.4050, L501.2450, L100.0100, L501.4020 #### [facility] [address] [place], [address] ANTI D Not performed Normal [facility] Comment on above: Order Comment: A Result Comment: This specimen has been REJECTED due to Laboratory criteria: MisLabelled-WRITING ON FENWAL SMEARED OFF;ILLEGIBLE. 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 04/23/241610 Performed By: #### B TS, L500.4050, L501.2450, L100.0100, L501.4020 #### [facility] [address] [place], [address] B CELLS Not performed Normal [facility] Comment on above: Order Comment: A Result Comment: This specimen has been REJECTED due to Laboratory criteria: MisLabelled-WRITING ON FENWAL SMEARED OFF;ILLEGIBLE. 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 04/23/241610 Performed By: #### B TS, L500.4050, L501.2450, L100.0100, L501.4020 #### [facility] [address] [place], [address] BLD TYPE RECHEK Not performed Normal [facility] Comment on above: Order Comment: A Result Comment: This specimen has been REJECTED due to Laboratory criteria: MisLabelled-WRITING ON FENWAL SMEARED OFF;ILLEGIBLE. 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 04/23/241610 Performed By: #### B TS, L500.4050, L501.2450, L100.0100, L501.4020 #### [facility] [address] [place], [address] CNOVon 04-17-2024 CNOV Office Visit (FAMPWS ) GOOD DE LUNA ([id number]) 1965 M Date Time Provider Department 04/17/24 9:40 AM GYPSY SYED During your visit today, we recorded the following information about you: Pulse Respiration Blood pressure Weight 68/minute 16/minute 122/80 104.6 kg Gypsy Syed APRN.REBRANDER 04/17/2024 11:30 AM Signed This is a 58 year old male who presents today with: Patient presents with: Follow Up: Thyroid issus HISTORY OF PRESENT ILLNESS: Good De Luna is a 58 year old male. Patient presents with: Follow Up: Thyroid issus Here in the office for thyroid follow up. Synthroid reduced to 150 mcg daily, repeat labs due in June. Was concerned since he has never had any issues with his thyroid levels in the past. Refers he would take it with food in the past and never had abnormal labs. Will follow up with Dr. Cisse (neurology) April 24. To discuss memory. Bach screening showed possible cognitive impairment. Shoulder mass, has been present for at least a year. Tender at times. Is concerned because sister had a similar mass removed which could be cancer. PAST MEDICAL HISTORY: PAST MEDICAL HISTORY Diagnosis Date Anxiety state, unspecified Arthritis Cancer (HCC) Cerebral palsy (HCC) Congenital diplegia (HCC) GERD (gastroesophageal reflux disease) JODEE on CPAP Sleep apnea 09/22/2008 Spinal stenosis Unspecified hypothyroidism PAST SURGICAL HISTORY Procedure Laterality Date TONSILLECTOMY HX TONSILLECTOMY PRIMARY/SECONDARY Tonsillectomy ALLERGIES Patient has no known allergies. MEDICATIONS Current Outpatient Medications Medication Sig levothyroxine (SYNTHROID) 150 mcg tablet Take 1 tablet by mouth once daily. omeprazole (PRILOSEC) 20 mg capsule take 1 capsule by mouth once daily fluticasone (FLONASE) 50 mcg/actuation nasal spray Use 2 Sprays in each nostril two times a day. Rinse mouth after use. meclizine (ANTIVERT) 25 mg tab Take 1 tablet by mouth three times a day as needed (dizziness) for up to 12 doses. cholecalciferol, vitamin D3, (VITAMIN D3 ORAL) Take 2,000 mcg by mouth once daily. citalopram (CELEXA) 40 mg tablet Take 1 tablet by mouth once daily. CPAP Initiate CPAP @ 7 cm of water with humidification. Mask (per patient preference) optional chin strap (if indicated) , filters, tubing, humidifier and lifetime supplies. multivit-min/folic/vit K/lycop (MEN'S 50 PLUS MULTIVITAMIN ORAL) Take 1 tablet by mouth once daily. vitamin b complex capsule Take 1 capsule by mouth once daily. No current facility-administered medications for this visit. FAMILY HISTORY Adopted: Yes Problem Relation Age of Onset Diabetes Mother Thyroid Maternal Grandmother Social History Tobacco Use Smoking status: Former Current packs/day: 0.00 Average packs/day: 1 pack/day for 30.0 years (30.0 ttl pk-yrs) Types: Cigarettes Start date: 07/29/1993 Quit date: 07/29/2023 Years since quittin.7 Smokeless tobacco: Never Tobacco comments: Pt has cut back to 1/4 pack daily. Vaps off and on Vaping Use Vaping status: Never Used Substance Use Topics Alcohol use: Yes Comment: 3/4 beers daily sometimes Drug use: No REVIEW OF SYSTEMS GENERAL: No weight loss, malaise or fevers/chills HEENT: Negative for frequent or significant headaches, No changes in hearing or vision. NECK: Negative for lumps, goiter, pain and significant neck swelling RESPIRATORY: Negative for cough, hemoptysis, wheezing, dyspnea or shortness of breath CARDIOVASCULAR: Negative for chest pain, leg swelling, orthopnea, or palpitations GI: No nausea, vomiting, or diarrhea/constipation. No hematochezia/melena. No heartburn or reflux symptoms. : No history of dysuria, frequency or incontinence MUSCULOSKELETAL: Negative for joint pain or swelling. SKIN: + Neck Mass ENDOCRINE: Negative for cold or heat intolerance, polyuria, polydipsia and goiter NEURO: No history of headaches, syncope, paralysis, seizures or tremors MOOD: Negative for depression, anxiety, or suicidal ideation. EXAM: BP 122/80 Pulse 68 Resp 16 Wt 104.6 kg (230 lb 9.6 oz) SpO2 97% BMI 38.37 kg/m? PHYSICAL EXAM: General Appearance: Well appearing, alert, in no acute distress, well-hydrated, well nourished. Skin: Large lump noted on posterior cervical spine, non-tender, no color change, may be a fat pad. Head: Normocephalic, no masses, lesions, tenderness or abnormalities. Eyes: Anicteric sclera. Extraocular movements are intact. Lungs: Lungs clear to auscultation. No wheezing, rhonchi, rales. Heart: RRR without murmur, gallop, or rubs. No ectopy. Extremities: No deformities, edema, skin discoloration, clubbing or cyanosis. Good capillary refill. Peripheral Pulses: Normal, Capillary refill <2secs, strong peripheral pulses, Pulses palpable. Neurologic: Gait normal. Sensation grossly (more content not included)... Normal [facility] CNOVon 04-12-2024 CNOV Office Visit (FAMPWS ) GOOD DE LUNA ([id number]) 1965 M Date Time Provider Department 04/12/24 10:40 [facility] your visit today, we recorded the following information about you: Pulse Respiration Blood pressure Weight 61/minute 16/minute 112/70 103.9 kg Brian Ahmadi APRN.[facility] 04/12/2024 10:58 AM Signed Chief Complaint Patient presents with: Follow Up: [address] [facility] Good Chacorta Calixto is a 58 year old male who presents here today for Chronic Medical Conditions. follow up for depression, anxiety. Here with daughter. Patient here for a follow-up. Last month had been complaining of ongoing generalized anxiety, low moods, anger. Using lorazepam as needed, estimates twice weekly, sometimes less, times more. Prescribed Celexa 40 mg once daily. I added Wellbutrin XL 150 mg once daily to his regimen. Today he states that he never picked up the medication. Feels like he does not need it. Patient was also following up on hypothyroidism. Last month his TSH was 10.4. After further discussion patient had been taking the medication with other medications and food. He has been doing this for many years. I gave him the option of increasing the dose or trialing taking the medication on an empty stomach with no other medications as he was supposed to. He stated that he wanted to start taking the medications properly. We do had no dose change. He had a TSH to today which has not been completed. He will do so after the visit. He continues to have some brain fog, memory issues. I did order the Marj score test last month but he has not completed. He will do so soon. He has follow-up with neurology in April with Dr. Cisse in [place]. He has been following with ear nose and throat at [place] for inner ear problems. He was given an antibiotic. He is scheduled for patch testing early next month. He also mentions that this has been ongoing since August. He moved to a new apartment in June which has black mold in it. Unsure if he is able to leave. Past medical history, appointments, medications, allergies reviewed. EXAM: BP 112/70 Pulse 61 Resp 16 Wt 103.9 kg (229 lb) SpO2 98% BMI 38.11 kg/m? General Appearance: Well appearing, alert, in no acute distress, well-hydrated, well nourished.. ASSESSMENT/PLAN: 1. Recurrent major depressive disorder, remission status unspecified (HCC) - ICD9: 296.30, ICD10: F33.9 (primary diagnosis) -Continue Celexa, lorazepam. Patient did not wish to continue with Wellbutrin. 2. MANNY (generalized anxiety disorder) - ICD9: 300.02, ICD10: F41.1 -Continue Celexa, lorazepam. 3. Hypothyroidism, unspecified type - ICD9: 244.9, ICD10: E03.9 -Recheck TSH today. I will reach out to him as he has been taking the medication on empty stomach with no other medications for the past month. Brian Ahmadi APRN.REBRANDER RTO in 3 months, sooner if needed. This note was partly generated using [employer] voice recognition dictation and may contain some misspelled or inaccurate words missed on review. Allergies As of Date: 04/12/2024 (No Known Allergies) Date Reviewed: 04/12/2024 Reviewed by: Rola Riojas LPN - Fully Assessed Reason for Visit: Follow Up [171] Cmt: 4 week Primary Visit Diagnosis:Recurrent major depressive disorder, remission status unspecified (HCC) [F33.9] Other Visit Diagnoses:MANNY (generalized anxiety disorder) [F41.1] Hypothyroidism, unspecified type [E03.9] Prescriptions as of 04/12/2024 - levothyroxine (SYNTHROID) 175 mcg tablet Take 1 tablet by mouth once daily. - omeprazole (PRILOSEC) 20 mg capsule take 1 capsule by mouth once daily - fluticasone (FLONASE) 50 mcg/actuation nasal spray Use 2 Sprays in each nostril two times a day. Rinse mouth after use. - meclizine (ANTIVERT) 25 mg tab Take 1 tablet by mouth three times a day as needed (dizziness) for up to 12 doses. - cholecalciferol, vitamin D3, (VITAMIN D3 ORAL) Take 2,000 mcg by mouth once daily. - citalopram (CELEXA) 40 mg tablet Take 1 tablet by mouth once daily. - CPAP Initiate CPAP @ 7 cm of water with humidification. Mask (per patient preference) optional chin strap (if indicated) , filters, tubing, humidifier and lifetime supplies. - multivit-min/folic/vit K/lycop (MEN'S 50 PLUS MULTIVITAMIN ORAL) Take 1 tablet by mouth once daily. - vitamin b complex capsule Take 1 capsule by mouth once daily. Problem List As Of Date 04/12/2024 Noted Resolved Sleep apnea [G47.30] 09/22/2008 Hypothyroidism [E03.9] 03/27/2009 Anxiety state [F41.1] 03/27/2009 Bilateral Hip Pain [M25.551, M25.552] 04/17/2009 SI (Sacroiliac) Joint Dysfunction [M53.3] 04/17/2009 Thoracic or lumbosacral neuritis or radiculitis*04/25/2014 Spinal stenosis of lumbar region [M48.061] 12/12/2017 Chronic bilateral low back pain with right-side*01/10/2018 Back pain [M54.9] 02/10/2019 Nicotine u (more content not included)... Normal [facility] TSH SerPl-aCncon 04-12-2024 TSH Qn 0.123 m[IU]/L Low 0.270-4.200 [facility] Comment on above: Order Comment: Speci magaly Type: BLOOD SPECIMENOrdering Facility: [facility] Address: [address] [place] [address] Performed By: #### 3 016-3 ####[facility] LABCLIA [id number] [id number] [id number] [facility] Lizzy 04-04-2024 PATTIEN Telephone (INTMWS) GOOD DE LUNA ([id number]) 1965 M Date Time Provider Department 04/04/24 MATHEW COBIAN INTMWS During your visit today, we recorded the following information about you: Angelika Geller LPN 04/04/2024 2:08 PM Signed Pt calls requesting a referral for another ENT states is wanting a second opinion . Has been seeing someone here in [place]. Asking for someone maybe in [place]. Please advise. Brian Ahmadi APRN.CNP 04/04/2024 2:59 PM Signed Please let the patient know that I placed a referral to ENT. We usually have patients go to [place]. Brian Ahmadi APRN.Ross Ross LPN 04/04/2024 3:25 PM Signed Patient notified of referral, verbalizes understanding of instructions. Ross Roldan LPN Allergies As of Date: 04/04/2024 (No Known Allergies) Date Reviewed: 03/15/2024 Reviewed by: Scarlet Pascual LPN - Fully Assessed Reason for Visit: Consult [502] Primary Visit Diagnosis:Dizziness and giddiness [R42] Order(s):CONSULT TO ENT [9008] Order #: [id number]: 1 FUTURE Prescriptions as of 04/04/2024 - levothyroxine (SYNTHROID) 175 mcg tablet Take 1 tablet by mouth once daily. - buPROPion XL (WELLBUTRIN XL) 150 mg 24 hr tablet Take 1 tablet by mouth once daily. - omeprazole (PRILOSEC) 20 mg capsule take 1 capsule by mouth once daily - fluticasone (FLONASE) 50 mcg/actuation nasal spray Use 2 Sprays in each nostril two times a day. Rinse mouth after use. - meclizine (ANTIVERT) 25 mg tab Take 1 tablet by mouth three times a day as needed (dizziness) for up to 12 doses. - cholecalciferol, vitamin D3, (VITAMIN D3 ORAL) Take 2,000 mcg by mouth once daily. - citalopram (CELEXA) 40 mg tablet Take 1 tablet by mouth once daily. - CPAP Initiate CPAP @ 7 cm of water with humidification. Mask (per patient preference) optional chin strap (if indicated) , filters, tubing, humidifier and lifetime supplies. - multivit-min/folic/vit K/lycop (MEN'S 50 PLUS MULTIVITAMIN ORAL) Take 1 tablet by mouth once daily. - vitamin b complex capsule Take 1 capsule by mouth once daily. Problem List As Of Date 04/04/2024 Noted Resolved Sleep apnea [G47.30] 09/22/2008 Hypothyroidism [E03.9] 03/27/2009 Anxiety state [F41.1] 03/27/2009 Bilateral Hip Pain [M25.551, M25.552] 04/17/2009 SI (Sacroiliac) Joint Dysfunction [M53.3] 04/17/2009 Thoracic or lumbosacral neuritis or radiculitis*04/25/2014 Spinal stenosis of lumbar region [M48.061] 12/12/2017 Chronic bilateral low back pain with right-side*01/10/2018 Back pain [M54.9] 02/10/2019 Nicotine use disorder, F17.2 [F17.200] 02/11/2019 Cerebral palsy (HCC) [G80.9] Congenital diplegia (HCC) [G80.8] 05/27/2021 Spasticity [R25.2] 05/27/2021 Costochondritis [M94.0] 05/27/2021 Localized osteoporosis (Lequesne) [M81.6] 05/27/2021 Recurrent major depressive disorder, remission *10/17/2023 Prostate cancer (HCC) [C61] 10/17/2023 Encounter Status:Closed by ROSS ROLDAN on 04/04/24 [facility] CNOVon 03-15-2024 CNOV Office Visit (FAMPWS ) [place] ([id number]) 1965 M Date Time Provider Department 03/15/24 10:20 AM BRIAN AHMADI During your visit today, we recorded the following information about you: Pulse Respiration Blood pressure 62/minute 16/minute 124/68 Brian Ahmadi APRN.[facility] 03/15/2024 11:25 AM Signed Chief Complaint Patient presents with: Follow Up: TSH HPI Good De Luna is a 58 year old male who presents here today for Chronic Medical Conditions. Here with daughter HYPOTHYROID: Patient is compliant with medications: Yes but admits to be taking the medication with all his other medications Patient has changes in energy: Yes Patient has changes in hair or skin: No Patient has temperature intolerance: Yes Patient has weight changes: No Recent TSH 10.4. Previously 3.07. Patient stating that he has ongoing generalized anxiety. Has been dealing with an ear issue in which she has been following with ear nose and throat. Feels like his anxiousness has been worse related to this. But also has complaints of occasional anger, low moods. Does not really feel like he is depressed for the most part. States that he occasionally has intrusive thoughts. Denies any suicidal ideations. His intrusive thoughts mainly revolve around being angry. He also uses lorazepam as needed. Estimates twice weekly, sometimes more, sometimes less. He also discusses ongoing memory issues. He is scheduled to see neurology in April. Father had Alzheimer's. Past medical history, appointments, medications, allergies reviewed. EXAM: BP 124/68 Pulse 62 Resp 16 SpO2 95% General Appearance: Well appearing, alert, in no acute distress, well-hydrated, well nourished.. Neck: Supple, no adenopathy; thyroid symmetric, normal size, no bruits. Lungs: Lungs clear to auscultation. No wheezing, rhonchi, rales.. Heart: RRR without murmur, gallop, or rubs. No ectopy. Latest Ref Rng 03/12/2024 Protein, Total 6.3 - 8.0 g/dL 7.8 Albumin 3.9 - 4.9 g/dL 4.6 Calcium 8.5 - 10.2 mg/dL 9.6 Bilirubin, Total 0.2 - 1.3 mg/dL 0.6 Alkaline Phosphatase 38 - 113 U/L 107 AST 14 - 40 U/L 23 ALT 10 - 54 U/L 29 Glucose 74 - 99 mg/dL 89 BUN 9 - 24 mg/dL 21 Creatinine 0.73 - 1.22 mg/dL 1.26 (H) Sodium 136 - 144 mmol/L 137 Potassium 3.7 - 5.1 mmol/L 4.2 Chloride 98 - 107 mmol/L 99 CO2 22 - 30 mmol/L 25 Anion Gap 8 - 15 mmol/L 13 eGFR >=60 mL/min/1.73m? 67 TSH 0.270 - 4.200 mIU/L 10.400 (H) ASSESSMENT/PLAN: 1. Hypothyroidism, unspecified type - ICD9: 244.9, ICD10: E03.9 (primary diagnosis) -TSH is elevated at 10.4. After further discussion with the patient, he states that he has been taking his levothyroxine with all other medications at the same time. We discussed that this could potentially be causing the levothyroxine to not be absorbed properly. I gave him the option of increasing the levothyroxine and continuing to take the medication as he has been doing so or continue with the same dose and starting to take his levothyroxine on an empty stomach with no other medication. He states that he would like to try taking his levothyroxine on empty stomach in the morning with no other medication and then continuing to take his other medication at night. We will repeat TSH in 1 month. - LEVOTHYROXINE 175 MCG TABLET - THYROID STIMULATING HORMONE 2. Recurrent major depressive disorder, remission status unspecified (HCC) - ICD9: 296.30, ICD10: F33.9 -Some ongoing low moods, episodes of irritability. Also some ongoing memory concerns. Trial adding Wellbutrin to Celexa. Follow-up in 1 month. - BUPROPION XL 150 MG TAB 3. MANNY (generalized anxiety disorder) - ICD9: 300.02, ICD10: F41.1 -Increased, continue Celexa, add Wellbutrin, continue with as needed lorazepam. - BUPROPION XL 150 MG TAB 4. Memory loss - ICD9: 780.93, ICD10: R41.3 -Continue with plan to see neurology. Complete box screening. Try to improve anxiety, depression, get TSH in more normal range and reassess. - BACH SCREENING TEST Brian Ahmadi APRN.REBRANDER RTO in 1 months, sooner if needed. This note was partly generated using [employer] voice recognition dictation and may contain some misspelled or inaccurate words missed on review. Allergies As of Date: 03/15/2024 (No Known Allergies) Date Reviewed: 03/15/2024 Reviewed by: Scarlet Pascual LPN - Fully Assessed Reason for Visit: Follow Up [171] Cmt: TSH Primary Visit Diagnosis:Hypothyroidism, unspecified type [E03.9] Other Visit Diagnoses:Recurrent major depressive disorder, remission status unspecified (HCC) [F33.9] MANNY (generalized anxiety disorder) [F41.1] Memory loss [R41.3] Order(s):levothyroxine (SYNTHROID) 175 mcg tabletTake 1 tablet by mouth once daily.Disp: 90 tabletRfl: 3 THYROID STIMULATING HORMONE [SQTSH] Order #: [id number] FUTURE buPROPion XL (WELLBUTRIN XL) 150 mg 24 hr tablet (more content not included)... Normal [facility] 03-15-2024 [facility] Telephone (FAMPWS) [place] ([id number]) 1965 M Date Time Provider Department 03/15/24 BRIAN AHMADI During your visit today, we recorded the following information about you: Scarlet Pascual LPN 03/15/2024 10:59 AM Signed Following patient's appointment he was inquiring if he could get his PSA drawn to have it rechecked to ensure it's not getting higher. Advised patient would route provider a message since currently in with patient and get back with him once provider responds. Patient voiced understanding. ANGELA Heath Jesse, APRN.PATTIE 03/15/2024 11:22 AM Signed Patient saw urology 3 days ago. They placed a PSA to be completed in August. LUCIAN Hannon Lori, LPN 03/15/2024 12:00 PM Signed Phoned patient and reviewed provider's message with him. He voiced understanding. Scarlet Pascual LPN Allergies As of Date: 03/15/2024 (No Known Allergies) Date Reviewed: 03/15/2024 Reviewed by: Scarlet Pascual LPN - Fully Assessed Reason for Visit: Patient Question [1477] Prescriptions as of 03/15/2024 - levothyroxine (SYNTHROID) 175 mcg tablet Take 1 tablet by mouth once daily. - buPROPion XL (WELLBUTRIN XL) 150 mg 24 hr tablet Take 1 tablet by mouth once daily. - omeprazole (PRILOSEC) 20 mg capsule take 1 capsule by mouth once daily - fluticasone (FLONASE) 50 mcg/actuation nasal spray Use 2 Sprays in each nostril two times a day. Rinse mouth after use. - meclizine (ANTIVERT) 25 mg tab Take 1 tablet by mouth three times a day as needed (dizziness) for up to 12 doses. - cholecalciferol, vitamin D3, (VITAMIN D3 ORAL) Take 2,000 mcg by mouth once daily. - citalopram (CELEXA) 40 mg tablet Take 1 tablet by mouth once daily. - CPAP Initiate CPAP @ 7 cm of water with humidification. Mask (per patient preference) optional chin strap (if indicated) , filters, tubing, humidifier and lifetime supplies. - multivit-min/folic/vit K/lycop (MEN'S 50 PLUS MULTIVITAMIN ORAL) Take 1 tablet by mouth once daily. - vitamin b complex capsule Take 1 capsule by mouth once daily. Problem List As Of Date 03/15/2024 Noted Resolved Sleep apnea [G47.30] 09/22/2008 Hypothyroidism [E03.9] 03/27/2009 Anxiety state [F41.1] 03/27/2009 Bilateral Hip Pain [M25.551, M25.552] 04/17/2009 SI (Sacroiliac) Joint Dysfunction [M53.3] 04/17/2009 Thoracic or lumbosacral neuritis or radiculitis*04/25/2014 Spinal stenosis of lumbar region [M48.061] 12/12/2017 Chronic bilateral low back pain with right-side*01/10/2018 Back pain [M54.9] 02/10/2019 Nicotine use disorder, F17.2 [F17.200] 02/11/2019 Cerebral palsy (HCC) [G80.9] Congenital diplegia (HCC) [G80.8] 05/27/2021 Spasticity [R25.2] 05/27/2021 Costochondritis [M94.0] 05/27/2021 Localized osteoporosis (Lequesne) [M81.6] 05/27/2021 Recurrent major depressive disorder, remission *10/17/2023 Prostate cancer (HCC) [C61] 10/17/2023 Encounter Status:Closed by SCARLET PASCUAL on 03/15/24 [facility] 03-13-2024 [facility] Telephone (VERNELL) [place] ([id number]) 1965 M Date Time Provider Department 03/13/24 BRIAN AHMADI [facility] During your visit today, we recorded the following information about you: Brian Ahmadi APRN.REBRANDER 03/13/2024 8:32 AM Signed Please assist with scheduling patient with myself for a follow up. His TSH is abnormal, we need to discuss changing his dose. I have openings on Monday for his convenience. Brian Ahmadi APRN.Ross Ross LPN 03/13/2024 9:19 AM Signed Pt has appt on 03/13 at 10:20 am. Ross Roldan LPN Allergies As of Date: 03/13/2024 (No Known Allergies) Date Reviewed: 03/12/2024 Reviewed by: Raphael Calderon Jr., MD - Fully Assessed Reason for Visit: Results [95] Prescriptions as of 03/13/2024 - iv contrast (will be provided with radiology test) MRI Prostate Inject, intravenously, once for 1 dose. No IV access, insert saline lock prior to the beginning of sedation, infusion, injection of imaging exam. Discontinue saline lock post exam. If Pt. has a central line or IVAD, may access for administration according to line specific nursing protocol. Once exam is complete flush line and de-access according to line specific nursing protocol in the MR contrast administration guidelines link. - omeprazole (PRILOSEC) 20 mg capsule take 1 capsule by mouth once daily - fluticasone (FLONASE) 50 mcg/actuation nasal spray Use 2 Sprays in each nostril two times a day. Rinse mouth after use. - levothyroxine (SYNTHROID) 175 mcg tablet take 1 tablet by mouth every morning ON AN EMPTY STOMACH for THYROID - meclizine (ANTIVERT) 25 mg tab Take 1 tablet by mouth three times a day as needed (dizziness) for up to 12 doses. - cholecalciferol, vitamin D3, (VITAMIN D3 ORAL) Take 2,000 mcg by mouth once daily. - citalopram (CELEXA) 40 mg tablet Take 1 tablet by mouth once daily. - CPAP Initiate CPAP @ 7 cm of water with humidification. Mask (per patient preference) optional chin strap (if indicated) , filters, tubing, humidifier and lifetime supplies. - multivit-min/folic/vit K/lycop (MEN'S 50 PLUS MULTIVITAMIN ORAL) Take 1 tablet by mouth once daily. - vitamin b complex capsule Take 1 capsule by mouth once daily. Problem List As Of Date 03/13/2024 Noted Resolved Sleep apnea [G47.30] 09/22/2008 Hypothyroidism [E03.9] 03/27/2009 Anxiety state [F41.1] 03/27/2009 Bilateral Hip Pain [M25.551, M25.552] 04/17/2009 SI (Sacroiliac) Joint Dysfunction [M53.3] 04/17/2009 Thoracic or lumbosacral neuritis or radiculitis*04/25/2014 Spinal stenosis of lumbar region [M48.061] 12/12/2017 Chronic bilateral low back pain with right-side*01/10/2018 Back pain [M54.9] 02/10/2019 Nicotine use disorder, F17.2 [F17.200] 02/11/2019 Cerebral palsy (HCC) [G80.9] Congenital diplegia (HCC) [G80.8] 05/27/2021 Spasticity [R25.2] 05/27/2021 Costochondritis [M94.0] 05/27/2021 Localized osteoporosis (Lequesne) [M81.6] 05/27/2021 Recurrent major depressive disorder, remission *10/17/2023 Prostate cancer (HCC) [C61] 10/17/2023 Encounter Status:Closed by ROSS ROLDAN on 03/13/24 [facility] CNOVon 03-12-2024 CNOV Office Visit (UROLMD ) [place] ([id number]) 1965 M Date Time Provider Department 03/12/24 11:30 AM RAPHAEL CALDERON JR UROLIZY During your visit today, we recorded the following information about you: Weight Height 103.9 kg 1.651 m Raphael Calderon Jr., MD 03/12/2024 12:24 PM Signed ESTABLISHED PATIENT OFFICE VISIT HPI Good Herringson is a 58 year old male who presents Previous note dr. Sibley [place] 6 Prostate Cancer. 09/04 cores found. Prostate MRI negative for lesions. Decipher not approved by insurance. Proceed to active surveillance. PSA in 6 months. Father and patient in agreement. 09/12/23 - Psa now 2.01, feels well overall. No change in luts. No fever. No uti. Doing ok with active surveillance 03/12/24 - just got psa done today. Not resulted yet. No fever. No uti. No change in luts. Doing well with active surveillance LAB: Creatinine Date Value Ref Range Status 12/14/2023 1.11 0.73 - 1.22 mg/dL Final PSA (ng/mL) Date Value 09/12/2023 2.01 12/14/2022 1.42 04/18/2022 1.45 06/14/2021 5.2 No results found for: UGLUC, UBILI, UKET, SPGR, UHB, UPH, UPROT, UROBIL, NITRITES, UWBC, UCOLAP MEDICATIONS: omeprazole (PRILOSEC) 20 mg capsule take 1 capsule by mouth once daily fluticasone (FLONASE) 50 mcg/actuation nasal spray Use 2 Sprays in each nostril two times a day. Rinse mouth after use. levothyroxine (SYNTHROID) 175 mcg tablet take 1 tablet by mouth every morning ON AN EMPTY STOMACH for THYROID meclizine (ANTIVERT) 25 mg tab Take 1 tablet by mouth three times a day as needed (dizziness) for up to 12 doses. cholecalciferol, vitamin D3, (VITAMIN D3 ORAL) Take 2,000 mcg by mouth once daily. citalopram (CELEXA) 40 mg tablet Take 1 tablet by mouth once daily. CPAP Initiate CPAP @ 7 cm of water with humidification. Mask (per patient preference) optional chin strap (if indicated) , filters, tubing, humidifier and lifetime supplies. multivit-min/folic/vit K/lycop (MEN'S 50 PLUS MULTIVITAMIN ORAL) Take 1 tablet by mouth once daily. vitamin b complex capsule Take 1 capsule by mouth once daily. iv contrast (will be provided with radiology test) MRI Prostate Inject, intravenously, once for 1 dose. No IV access, insert saline lock prior to the beginning of sedation, infusion, injection of imaging exam. Discontinue saline lock post exam. If Pt. has a central line or IVAD, may access for administration according to line specific nursing protocol. Once exam is complete flush line and de-access according to line specific nursing protocol in the MR contrast administration guidelines link. REVIEW OF SYSTEMS Review of Systems Constitutional: Negative. Respiratory: Negative. Cardiovascular: Negative. Gastrointestinal: Negative. Genitourinary: Negative. Skin: Negative. Neurological: Negative. Psychiatric/Behavioral: Negative. HISTORIES PAST MEDICAL HISTORY No date: Anxiety state, unspecified No date: Arthritis No date: Cancer (HCC) No date: Cerebral palsy (HCC) No date: Congenital diplegia (HCC) No date: GERD (gastroesophageal reflux disease) No date: JODEE on CPAP 09/22/2008: Sleep apnea No date: Spinal stenosis No date: Unspecified hypothyroidism FAMILY HISTORY Adopted: Yes Problem Relation Age of Onset Diabetes Mother Thyroid Maternal Grandmother SOCIAL HISTORY Social History Tobacco Use Smoking status: Former Current packs/day: 0.00 Average packs/day: 1 pack/day for 30.0 years (30.0 ttl pk-yrs) Types: Cigarettes Start date: 07/29/1993 Quit date: 07/29/2023 Years since quittin.6 Smokeless tobacco: Never Tobacco comments: Pt has cut back to 1/4 pack daily. Vaps off and on Vaping Use Vaping status: Never Used Substance Use Topics Alcohol use: Yes Comment: 3/4 beers daily sometimes Drug use: No PHYSICAL EXAMINATION General appearance: Well appearing, alert, in no acute distress, and well-hydrated, well nourished Skin: Skin color, texture, turgor normal, no suspicious rashes or lesions Respiratory:+ effort Cardiovascular: Not examined GI: Normal abdominal exam, Abdomen soft, non-tender. No masses, organomegaly Musculoskeletal: Negative Neuro: Negative Genitourinary: not examined Impression: (C61) Prostate cancer (HCC) Plan: 6 months Mri prostate and psa prior Cont active surveillance Raphael Calderon Jr, MD 03/12/2024 Allergies As of Date: 03/12/2024 (No Known Allergies) Date Reviewed: 03/12/2024 Reviewed by: Raphael Calderon Jr., MD - Fully Assessed Reason for Visit: Established Patient [175] Cmt: 6 month follow up/PSA Visit Diagnosis:Prostate cancer (HCC) [C61] Order(s):MRI PROSTATE WO/W IVCON [[id number]] Order #: [id number] FUTURE iv contrast (will be provided with radiology test)MRI Prostate Inject, intravenously, once for 1 dose. No IV access, inse (more content not included)... Normal [facility] Comprehensive metabolic 2000 panelon 03-12-2024 Albumin [Mass/Vol] 4.6 g/dL Normal 3.9-4.9 [facility] Comment on above: Order Comment: Speci men Type: BLOOD SPECIMENOrdering Facility: [facility] Address: [facility] [place] [address] Performed By: #### 3 016-3, 22098-7 ####[facility] LABCLIA [id number] [place] [address] [place] ALP [Catalytic activity/Vol] 107 U/L Normal 38-113 [facility] Comment on above: Order Comment: Speci men Type: BLOOD SPECIMENOrdering Facility: [facility] Address: [address] [place] [address] Performed By: #### 3 016-3, 38326-0 ####[facility] LABCLIA [id number] [place] [address] [place] ALT [Catalytic activity/Vol] 29 U/L Normal 10-54 [facility] Comment on above: Order Comment: Speci men Type: BLOOD SPECIMENOrdering Facility: [facility] Address: [address] [place] [address] Performed By: #### 3 016-3, ####[facility] LABCLIA [id number] [place] [id number] [place] Anion gap [Moles/Vol] 13 mmol/L Normal 8-15 [facility] Comment on above: Order Comment: Speci men Type: BLOOD SPECIMENOrdering Facility: [facility] Address: [facility] [place] [address] Performed By: #### 3 016-3, 74951-8 ####[facility] LABCLIA [id number] [place] [id number] [place] AST [Catalytic activity/Vol] 23 U/L Normal 14-40 [facility] Comment on above: Order Comment: Speci men Type: BLOOD SPECIMENOrdering Facility: [facility] Address: [address] [place] [address] Performed By: #### 3 016-3, ####[facility] LABCLIA [id number] [place] [address] [place] Bilirubin [Mass/Vol] 0.6 mg/dL Normal 0.2-1.3 [facility] Comment on above: Order Comment: Speci men Type: BLOOD SPECIMENOrdering Facility: [facility] Address: [address] [place] [address] Performed By: #### 3 016-3, ####[facility] LABCLIA [id number] [place] [address] [place] Calcium [Mass/Vol] 9.6 mg/dL Normal 8.5-10.2 [facility] Comment on above: Order Comment: Speci men Type: BLOOD SPECIMENOrdering Facility: [facility] Address: [address] [place] [address] Performed By: #### 3 016-3, ####[facility] LABCLIA [id number] [place] [address] [place] Chloride [Moles/Vol] 99 mmol/L Normal 98-107 [facility] Comment on above: Order Comment: Speci men Type: BLOOD SPECIMENOrdering Facility: [facility] Address: [address] [place] [address] Performed By: #### 3 016-3, ####[facility] LABCLIA [id number] [place] [address] [place] CO2 [Moles/Vol] 25 mmol/L Normal 22-30 [facility] Comment on above: Order Comment: Speci men Type: BLOOD SPECIMENOrdering Facility: [facility] Address: [address] [place] [address] Performed By: #### 3 016-3, 39307-5 ####[facility] LABIA [id number] [place] [address] [place] Creatinine [Mass/Vol] 1.26 mg/dL High 0.73-1.22 [facility] Comment on above: Order Comment: Speci men Type: BLOOD SPECIMENOrdering Facility: [facility] Address: [address] [place] [address] Performed By: #### 3 016-3, 35083-1 ####[facility] LABIA [id number] [place] [address] [place] Creatinine and Glomerular filtration rate.predicted panel (S/P/Bld) 67 mL/min/1.73m??? Normal >=60 [facility] Comment on above: Order Comment: Juani men Type: BLOOD SPECIMENOrdering Facility: [facility] Address: [address] [place] [address] Result Comment: Heidi mated Glomerular Filtration Rate (eGFR) is calculated using the 2020 CKD-EPI creatinine equation. This equation utilizes serum creatinine, sex, and age as parameters. The creatinine assay has traceable calibration to isotope dilution-mass spectrometry. Refer to KDIGO guidelines for clinical interpretation. In patients with unstable renal function, e.g. those with acute kidney injury, the eGFR may not accurately reflect actual GFR. Performed By: #### 3 016-3, 86314-3 ####[facility] LABIA [id number] [place] [address] [place] Glucose [Mass/Vol] 89 mg/dL Normal 74-99 [facility] Comment on above: Order Comment: Speci men Type: BLOOD SPECIMENOrdering Facility: [facility] Address: [address] [place] [address] Result Comment: The [place] Diabetes Association (ADA) provides guidance for cutoff values for fasting glucose and random glucose. The ADA defines fasting as no caloric intake for at least 8 hours. Fasting plasma glucose results between 100 to 125 mg/dL indicate increased risk for diabetes (prediabetes). Fasting plasma glucose results greater than or equal to 126 mg/dL meet the criteria for diagnosis of diabetes. In the absence of unequivocal hyperglycemia, results should be confirmed by repeat testing. In a patient with classic symptoms of hyperglycemia or hyperglycemic crisis, random plasma glucose results greater than or equal to 200 mg/dL meet the criteria for diagnosis of diabetes. Reference: Standards of Medical Care in Diabetes 2016, [place] Diabetes Association. Diabetes Care. 2016.39(Suppl 1). Performed By: #### 3 -, ####[facility] LABCLIA [id number] [place] [address] [place] Potassium [Moles/Vol] 4.2 mmol/L Normal 3.7-5.1 [facility] Comment on above: Order Comment: Juani magaly Type: BLOOD SPECIMENOrdering Facility: [facility] Address: [address] [place] [address] Performed By: #### 3 , ####[facility] LABCLIA [id number] [place] [address] [place] Protein [Mass/Vol] 7.8 g/dL Normal 6.3-8.0 [facility] Comment on above: Order Comment: Mejia mckenzie Type: BLOOD SPECIMENOrdering Facility: [facility] Address: [address] [place] [address] Performed By: #### 3 , ####[facility] LABCLIA [id number] [place] [address] [place] Sodium [Moles/Vol] 137 mmol/L Normal 136-144 [facility] Comment on above: Order Comment: Juani men Type: BLOOD SPECIMENOrdering Facility: [facility] Address: [address] [place] [address] Performed By: #### 3 016, ####[facility] LABCLIA [id number] STATES [facility] Urea nitrogen [Mass/Vol] 21 mg/dL Normal 9-24 [facility] Comment on above: Order Comment: Speci men Type: BLOOD SPECIMENOrdering Facility: [facility] Address: [address] [place] [address] Performed By: #### 3 016-3, 57820-6 ####[facility] LABCLIA [id number] [address] [place] TSH SerPl-aCncon 03-12-2024 TSH Qn 10.400 m[IU]/L High 0.270-4.200 [facility] Comment on above: Order Comment: Speci men Type: BLOOD SPECIMENOrdering Facility: [facility] Address: [address] [place] [address] Performed By: #### 3 016-3, 26954-5 ####[facility] LABIA [id number] [address] [place] CNPNon 02-27-2024 [facility] [place] ([id number]) 1965 M Date Time Provider Department 02/27/24 [facility] During your visit today, we recorded the following information about you: Renard Lo, RN 02/27/2024 10:29 AM Signed Pt called in and was reporting her was having ear issues that were causing dizziness, confusion, and anxiety. He was asking for an ENT consult. Let him know that Dr Cobian had put one on on 10/17/23 after his hospital f/u for dizziness. I let Pt know I would send his information to [facility] for him. Pt also missed his neurology appointment in [place] in December, Pt put through to scheduling to set up. Faxed demographic sheet, orders, and 10/17/23 OV note to fax # [phone]. Allergies As of Date: 02/27/2024 (No Known Allergies) Date Reviewed: 02/17/2024 Reviewed by: Genevieve De La Garza MA - Fully Assessed Reason for Visit: Appointment [186] Patient Question [9845] Prescriptions as of 02/27/2024 - omeprazole (PRILOSEC) 20 mg capsule take 1 capsule by mouth once daily - fluticasone (FLONASE) 50 mcg/actuation nasal spray Use 2 Sprays in each nostril two times a day. Rinse mouth after use. - levothyroxine (SYNTHROID) 175 mcg tablet take 1 tablet by mouth every morning ON AN EMPTY STOMACH for THYROID - LORazepam (ATIVAN) 0.5 mg Take 1 tablet by mouth at bedtime as needed for up to 90 days. - meclizine (ANTIVERT) 25 mg tab Take 1 tablet by mouth three times a day as needed (dizziness) for up to 12 doses. - cholecalciferol, vitamin D3, (VITAMIN D3 ORAL) Take 2,000 mcg by mouth once daily. - citalopram (CELEXA) 40 mg tablet Take 1 tablet by mouth once daily. - CPAP Initiate CPAP @ 7 cm of water with humidification. Mask (per patient preference) optional chin strap (if indicated) , filters, tubing, humidifier and lifetime supplies. - multivit-min/folic/vit K/lycop (MEN'S 50 PLUS MULTIVITAMIN ORAL) Take 1 tablet by mouth once daily. - vitamin b complex capsule Take 1 capsule by mouth once daily. Problem List As Of Date 02/27/2024 Noted Resolved Sleep apnea [G47.30] 09/22/2008 Hypothyroidism [E03.9] 03/27/2009 Anxiety state [F41.1] 03/27/2009 Bilateral Hip Pain [M25.551, M25.552] 04/17/2009 SI (Sacroiliac) Joint Dysfunction [M53.3] 04/17/2009 Thoracic or lumbosacral neuritis or radiculitis*04/25/2014 Spinal stenosis of lumbar region [M48.061] 12/12/2017 Chronic bilateral low back pain with right-side*01/10/2018 Back pain [M54.9] 02/10/2019 Nicotine use disorder, F17.2 [F17.200] 02/11/2019 Cerebral palsy (HCC) [G80.9] Congenital diplegia (HCC) [G80.8] 05/27/2021 Spasticity [R25.2] 05/27/2021 Costochondritis [M94.0] 05/27/2021 Localized osteoporosis ([place]) [M81.6] 05/27/2021 Recurrent major depressive disorder, remission *10/17/2023 Prostate cancer (HCC) [C61] 10/17/2023 Encounter Status:Closed by RENARD LO on 02/27/24 [facility] CNOVon 02-17-2024 CNOV Office Visit (UCWSTR ) [place] ([id number]) 1965 M Date Time Provider Department 02/17/24 11:45 AM ABBE ADAME [facility] During your visit today, we recorded the following information about you: Temperature Pulse Respiration Blood pressure 96.9 degrees 75/minute 21/minute 120/74 Weight 105.5 kg Abbe Adame APRN.REBRANDER 02/17/2024 11:58 AM Signed Subjective Came in with complaints of itching rash on the left lower ankle. Patient says that he noticed it this morning. Patient was outside yesterday but did not get into [place]. Patient denies any other symptoms other than itching. The history is provided by the patient. No language pathologist was used. Rash Review of Systems Constitutional: Negative. Skin: Positive for itching and rash. Objective Physical Exam Constitutional: Appearance: Normal appearance. Pulmonary: Effort: Pulmonary effort is normal. Musculoskeletal: Feet: Feet: Comments: Raised erythematous blanchable areas where noted above. Consistent with mosquito bites. Neurological: Mental Status: He is alert. PAST MEDICAL HISTORY Diagnosis Date Anxiety state, unspecified Arthritis Cancer (HCC) Cerebral palsy (HCC) Congenital diplegia (HCC) GERD (gastroesophageal reflux disease) JODEE on CPAP Sleep apnea 09/22/2008 Spinal stenosis Unspecified hypothyroidism PAST SURGICAL HISTORY Procedure Laterality Date TONSILLECTOMY HX TONSILLECTOMY PRIMARY/SECONDARY Tonsillectomy ALLERGIES Patient has no known allergies. MEDICATIONS omeprazole (PRILOSEC) 20 mg capsule take 1 capsule by mouth once daily fluticasone (FLONASE) 50 mcg/actuation nasal spray Use 2 Sprays in each nostril two times a day. Rinse mouth after use. levothyroxine (SYNTHROID) 175 mcg tablet take 1 tablet by mouth every morning ON AN EMPTY STOMACH for THYROID LORazepam (ATIVAN) 0.5 mg Take 1 tablet by mouth at bedtime as needed for up to 90 days. meclizine (ANTIVERT) 25 mg tab Take 1 tablet by mouth three times a day as needed (dizziness) for up to 12 doses. cholecalciferol, vitamin D3, (VITAMIN D3 ORAL) Take 2,000 mcg by mouth once daily. citalopram (CELEXA) 40 mg tablet Take 1 tablet by mouth once daily. CPAP Initiate CPAP @ 7 cm of water with humidification. Mask (per patient preference) optional chin strap (if indicated) , filters, tubing, humidifier and lifetime supplies. multivit-min/folic/vit K/lycop (MEN'S 50 PLUS MULTIVITAMIN ORAL) Take 1 tablet by mouth once daily. vitamin b complex capsule Take 1 capsule by mouth once daily. triamcinolone (KENALOG) 0.025 % cream Apply to affected area two times a day for 7 days. FAMILY HISTORY Adopted: Yes Problem Relation Age of Onset Diabetes Mother Thyroid Maternal Grandmother Social History Tobacco Use Smoking status: Former Packs/day: 1.00 Years: 30.00 Additional pack years: 0.00 Total pack years: 30.00 Types: Cigarettes Quit date: 07/29/2023 Years since quittin.5 Smokeless tobacco: Never Tobacco comments: Pt has cut back to 1/4 pack daily. Vaps off and on Vaping Use Vaping Use: Never used Substance Use Topics Alcohol use: Yes Comment: 3/4 beers daily sometimes Drug use: No ASSESSMENT/PLAN: 1. Rash - ICD9: 782.1, ICD10: R21 Patient was called in triamcinolone cream for the itching. Patient was educated about red flag symptoms to watch for such as swelling increased redness or pain. Patient will be reevaluated if anything changes. Patient was okay with this care plan. Abbe Adame APRN.REBRANDER Allergies As of Date: 02/17/2024 (No Known Allergies) Date Reviewed: 02/17/2024 Reviewed by: Genevieve De La Garza MA - Fully Assessed Reason for Visit: Rash [1087] Cmt: Possible ring worm on left ankle found this morning Primary Visit Diagnosis:Rash [R21] Order(s):triamcinolone (KENALOG) 0.025 % creamApply to affected area two times a day for 7 days.Disp: 15 gRfl: 0 Prescriptions as of 02/17/2024 - triamcinolone (KENALOG) 0.025 % cream Apply to affected area two times a day for 7 days. - omeprazole (PRILOSEC) 20 mg capsule take 1 capsule by mouth once daily - fluticasone (FLONASE) 50 mcg/actuation nasal spray Use 2 Sprays in each nostril two times a day. Rinse mouth after use. - levothyroxine (SYNTHROID) 175 mcg tablet take 1 tablet by mouth every morning ON AN EMPTY STOMACH for THYROID - LORazepam (ATIVAN) 0.5 mg Take 1 tablet by mouth at bedtime as needed for up to 90 days. - meclizine (ANTIVERT) 25 mg tab Take 1 tablet by mouth three times a day as needed (dizziness) for up to 12 doses. - cholecalciferol, vitamin D3, (VITAMIN D3 ORAL) Take 2,000 mcg by mouth once daily. - citalopram (CELEXA) 40 mg tablet Take 1 tablet by mouth once daily. - CPAP Initiate CPAP @ 7 cm of water with humidification. Mask (per patient preference) optional chin strap (if indica (more content not included)... Normal [facility] CBC W Auto Differential pane l (Bld)on 12-14-2023 Basophils (Bld) [#/Vol] 0.05 10*3/uL NINF [facility] Basophils/100 WBC (Bld) 0.5 % [facility] Differential cell count method Nom (Bld) Auto [facility] Eosinophils (Bld) [#/Vol] 0.16 10*3/uL [facility] Eosinophils/100 WBC (Bld) 1.5 % [facility] Erythrocyte distribution width (RBC) [Ratio] 12.9 % 11.5 - 15.0 % [facility] Hematocrit (Bld) [Volume fraction] 45.5 % 39.0 - 51.0 % [facility] Hemoglobin (Bld) [Mass/Vol] 14.7 g/dL 13.0 - 17.0 g/dL [facility] Immature granulocytes (Bld) [#/Vol] 0.04 10*3/uL [facility] Immature granulocytes/100 WBC (Bld) 0.4 % [facility] Interpretation and review of laboratory results Abnormal [facility] Lymphocytes (Bld) [#/Vol] 2.20 10*3/uL [facility] Lymphocytes/100 WBC (Bld) 21.0 % [facility] MCH (RBC) [Entitic mass] 29.7 pg 26.0 - 34.0 pg [facility] MCHC (RBC) [Mass/Vol] 32.3 g/dL 30.5 - 36.0 g/dL [facility] MCV (RBC) [Entitic vol] 91.9 fL 80.0 - 100.0 fL [facility] Monocytes (Bld) [#/Vol] 0.87 10*3/uL [facility] Monocytes/100 WBC (Bld) 8.3 % [facility] Neutrophils (Bld) [#/Vol] 7.15 10*3/uL [facility] Neutrophils/100 WBC (Bld) 68.3 % [facility] Nucleated RBC (Bld) [#/Vol] [facility] Nucleated RBC/100 WBC (Bld) [Ratio] 0.0 % /100 WBC [facility] Platelet mean volume (Bld) [Entitic vol] 11.8 fL 9.0 - 12.7 fL [facility] Platelets (Bld) [#/Vol] 242 10*3/uL [facility] RBC (Bld) [#/Vol] 4.95 10*6/uL 4.20 - 6.0 0 m/uL [facility] WBC (Bld) [#/Vol] 10.47 10*3/uL [facility] Comprehensive metabolic 2000 panelon 12-14-2023 Albumin [Mass/Vol] 4.4 g/dL 3.9 - 4.9 g/dL [facility] ALP [Catalytic activity/Vol] 88 U/L 38 - 113 U/L [facility] ALT [Catalytic activity/Vol] 31 U/L 10 - 54 U/L [facility] Anion gap [Moles/Vol] 15 mmol/L 9 - 18 mmol/L [facility] AST [Catalytic activity/Vol] 27 U/L 14 - 40 U/L [facility] Bilirubin [Mass/Vol] 0.3 mg/dL 0.2 - 1.3 mg/dL [facility] Calcium [Mass/Vol] 9.7 mg/dL 8.5 - 10. 2 mg/dL [facility] Chloride [Moles/Vol] 99 mmol/L 97 - 105 mmol/L [facility] CO2 [Moles/Vol] 23 mmol/L 22 - 30 mmol/L [facility] Creatinine [Mass/Vol] 1.11 mg/dL 0.73 - 1.22 mg/dL [facility] GFR/1.73 sq M.predicted among non-blacks MDRD (S/P/Bld) [Vol rate/Area] 78 mL/min/{1.73_m2} - PINF [facility] Comment on above: Estimated Glomerular Filtration Rate (eGFR) is calculated using the 2020 CKD-EPI creatinine equation. This equation utilizes serum creatinine, sex, and age as parameters. The creatinine assay has traceable calibration to isotope dilution-mass spectrometry. Refer to KDIGO guidelines for clinical interpretation. In patients with unstable renal function, e.g. those with acute kidney injury, the eGFR may not accurately reflect actual GFR. Glucose [Mass/Vol] 95 mg/dL 74 - 99 mg/dL [facility] Comment on above: The [place] Diabete s Association (ADA) provides guidance for cutoff values for fasting glucose and random glucose. The ADA defines fasting as no caloric intake for at least 8 hours. Fasting plasma glucose results between 100 to 125 mg/dL indicate increased risk for diabetes (prediabetes). Fasting plasma glucose results greater than or equal to 126 mg/dL meet the criteria for diagnosis of diabetes. In the absence of unequivocal hyperglycemia, results should be confirmed by repeat testing. In a patient with classic symptoms of hyperglycemia or hyperglycemic crisis, random plasma glucose results greater than or equal to 200 mg/dL meet the criteria for diagnosis of diabetes. Reference: Standards of Medical Care in Diabetes 2016, [place] Diabetes Association. Diabetes Care. 2016.39(Suppl 1). Interpretation and review of laboratory results Normal [facility] Potassium [Moles/Vol] 4.7 mmol/L 3.7 - 5.1 mmol/L [facility] Protein [Mass/Vol] 7.1 g/dL 6.3 - 8.0 g/dL [facility] Sodium [Moles/Vol] 137 mmol/L 136 - 144 mmol/L [facility] Urea nitrogen [Mass/Vol] 17 mg/dL 9 - 24 mg/dL [facility] FOLATE, SERUMon 12-14-2023 Folate [Mass/Vol] 18.5 ng/mL 4.7 - PINF ng/mL [facility] No Panel Informationon 12-13 Interpretation and review of laboratory results Normal [facility] Interpretation and review of laboratory results Normal [facility] T4 FREE/FREE THYROXINEon Free T4 [Mass/Vol] 1.1 ng/dL 0.9 - 1.7 ng/dL [facility] THYROID STIMULATING HORMONEo n 12-14-2023 TSH Qn 3.070 m[IU]/L [facility] VITAMIN B12on 12-14-2023 Cobalamin (Vitamin B12) [Mass/Vol] 464 pg/mL 232 - 1245 pg/mL [facility] No Panel Informationon 10-31 [facility] UA DIP, URINE (POC)on 2023 BILIRUBIN UA (POCT) Negative Negative [facility] CLARITY UA (POCT) Clear [facility] COLOR UA (POCT) Yellow [facility] GLUCOSE UA (POCT) Negative Negative mg/dL [facility] Hemoglobin Ql (U) Negative Negative [facility] KETONE UA (POCT) Trace Negative mg/dL [facility] LEUKOCYTES UA (POCT) Negative Negative [facility] NITRITE UA (POCT) Negative [facility] ([facility]) 6.0 4.5 - 8.0 [facility] Protein Ql (U) 30 mg/dL Abnormal Negative mg/dL [facility] SPECIFIC GRAVITY UA (POCT) 1.025 1.005 - 1.030 [facility] UROBILINOGEN UA (POCT) 0.2 E.U./dL Normal E.U./dL [facility] 36on 10-11-2023 36 Name of caller: Rodríguez [facility] Contact phone number: [phone] Appointment scheduled with: Dr. Taylor Appointment date & time: 10/18/23 8:00 AM Reason for visit (are you having any symptoms) : Developmental venous anomaly 09/26/23 ED admission Transportation issues/ concerns: No Special accommodations? ( wheel chair, etc) : None Current medications: No Any refills need: None Any chronic conditions the provider should be aware of: No Normal [facility] CALCIUMon 09-28-2023 Calcium [Mass/Vol] 9.0 mg/dL Normal 8.6-10.5 [facility] Comment on above: Performed By: #### I PB, CA, MGO, CHM7 #### [facility] (DEFAULT) [address] [address] Calcium [Mass/Vol] 9.0 mg/dL 8.6 - 10. 5 mg/dL [facility] CBC AND ELECTRONIC DIFFon Abs Baso Auto < Normal 0.00-0.09 [facility] Comment on above: Performed By: #### A 1CB, [id number] #### [facility] (DEFAULT) [address] [address] Basophils/100 WBC (Bld) 0.3 % Normal [facility] Comment on above: Performed By: #### A 1CB, [id number] #### [facility] (DEFAULT) [address] [address] DIFF STATUS Electronic Differential Normal [facility] Comment on above: Performed By: #### A 1CB, [id number] #### [facility] (DEFAULT) [address] [address] Eosinophils (Bld) [#/Vol] 0.22 10*3/uL Normal 0.00-0.48 [facility] Comment on above: Performed By: #### A 1CB, [id number] #### [facility] (DEFAULT) [address] [place] [address] Eosinophils/100 WBC (Bld) 2.2 % Normal [facility] Comment on above: Performed By: #### A 1CB, [id number] #### [facility] (DEFAULT) [address] [address] Hematocrit (Bld) [Volume fraction] 41.1 % Normal 39.6-48.8 [facility] Comment on above: Performed By: #### A 1CB, [id number] #### [facility] (DEFAULT) [address] [address] Hemoglobin (Bld) [Mass/Vol] 13.4 g/dL Normal 13.4-16.8 [facility] Comment on above: Performed By: #### A 1CB, [id number] #### [facility] (DEFAULT) [address] [address] Immature Grans % 0.7 % Normal [facility] Comment on above: Performed By: #### A 1CB, [id number] #### [facility] (DEFAULT) [address] [address] Immature Grans Absolute 0.07 K/uL Normal <=0.07 [facility] Comment on above: Performed By: #### A 1CB, [id number] #### [facility] (DEFAULT) [address] [place] [address] Lymphocytes (Bld) [#/Vol] 2.02 10*3/uL Normal 0.83-3.57 [facility] Comment on above: Performed By: #### A 1CB, [id number] #### [facility] (DEFAULT) [address] [address] Lymphocytes/100 WBC (Bld) 20.2 % Normal [facility] Comment on above: Performed By: #### A 1CB, [id number] #### [facility] (DEFAULT) [address] [address] MCV (RBC) [Entitic vol] 93.0 fL Normal 79.0-94.5 [facility] Comment on above: Performed By: #### Jonel DEVINE, [id number] #### [facility] (DEFAULT) [address] [place] [address] Mean Cell Hgb 30.3 pg Normal 26.1-33.3 [facility] Comment on above: Performed By: #### Jonel 1CB, [id number] #### [facility] (DEFAULT) [address] [place] [address] Mean Cell Hgb Conc 32.6 g/dL Normal 31.9-36.5 [facility] Comment on above: Performed By: #### Jonel DEVINE, [id number] #### [facility] (DEFAULT) [address] [place] [address] Monocytes (Bld) [#/Vol] 0.95 10*3/uL High 0.24-0.93 [facility] Comment on above: Performed By: #### Jonel DEVINE, [id number] #### [facility] (DEFAULT) [address] [place] [address] Monocytes/100 WBC (Bld) 9.5 % Normal [facility] Comment on above: Performed By: #### Jonel 1CB, [id number] #### [facility] (DEFAULT) [address] [place] [address] Nucleated RBC 0.0 /100 WBC Normal <=0.2 [facility] Comment on above: Performed By: #### Jonel 1CB, [id number] #### [facility] (DEFAULT) [address] [place] [address] Platelet mean volume (Bld) [Entitic vol] 11.6 fL Normal 8.7-12.3 [facility] Comment on above: Performed By: #### Jonel 1CB, [id number] #### [facility] (DEFAULT) [address] [place] [address] 13198 Platelets (Bld) [#/Vol] 218 10*3/uL Normal 146-337 [facility] Comment on above: Performed By: #### Jonel DEVINE, [id number] #### [facility] (DEFAULT) [address] [place] [address] 84121 RBC (Bld) [#/Vol] 4.42 10*6/uL Normal 4.38-5.83 [facility] Comment on above: Performed By: #### Jonel DEVINE, [id number] #### [facility] (DEFAULT) [address] [place] [address] 57572 RBC Distribution 13.0 % Normal 10.9-14.3 [facility] Comment on above: Performed By: #### Jonel DEVINE, [id number] #### [facility] (DEFAULT) [address] [place] [address] 98317 Segs + Bands Auto 67.1 % Normal [facility] Comment on above: Performed By: #### Jonel DEVINE, [id number] #### [facility] (DEFAULT) [address] [place] [address] 80153 Segs + Bands,Absolute Auto 6.72 K/uL High 1.57-6.19 [facility] Comment on above: Performed By: #### Jonel DEVINE, [id number] #### [facility] (DEFAULT) [address] [place] [address] 49893 WBC (Bld) [#/Vol] 10.01 10*3/uL Normal 3.73-10.10 [facility] Comment on above: Performed By: #### Jonel DEVINE, [id number] #### [facility] (DEFAULT) [address] [place] [address] 02812 Basophils (Bld) [#/Vol] K/uL 0.00 - 0.09 K/uL [facility] Basophils/100 WBC (Bld) 0.3 % [facility] Differential cell count method Nom (Bld) Electronic Differential [facility] Eosinophils (Bld) [#/Vol] 0.22 10*3/uL 0.00 - 0.48 K/uL [facility] Eosinophils/100 WBC (Bld) 2.2 % [facility] Erythrocyte distribution width (RBC) [Ratio] 13.0 % 10.9 - 14.3 % [facility] Hematocrit (Bld) [Volume fraction] 41.1 % 39.6 - 48.8 % [facility] Hemoglobin (Bld) [Mass/Vol] 13.4 g/dL 13.4 - 16.8 g/dL [facility] Immature granulocytes (Bld) [#/Vol] 0.07 10*3/uL NINF - 0.07 K/uL [facility] Immature granulocytes/100 WBC (Bld) 0.7 % [facility] Interpretation and review of laboratory results Abnormal [facility] Lymphocytes (Bld) [#/Vol] 2.02 10*3/uL 0.83 - 3.57 K/uL [facility] Lymphocytes/100 WBC (Bld) 20.2 % [facility] MCH (RBC) [Entitic mass] 30.3 pg 26.1 - 33.3 pg [facility] MCHC (RBC) [Mass/Vol] 32.6 g/dL 31.9 - 36.5 g/dL [facility] MCV (RBC) [Entitic vol] 93.0 fL 79.0 - 94.5 fL [facility] Monocytes (Bld) [#/Vol] 0.95 10*3/uL High 0.24 - 0.93 K/uL [facility] Monocytes/100 WBC (Bld) 9.5 % [facility] Neutrophils (Bld) [#/Vol] 6.72 10*3/uL High 1.57 - 6.19 K/uL [facility] Nucleated RBC/100 WBC (Bld) [Ratio] 0.0 % [facility] Platelet mean volume (Bld) [Entitic vol] 11.6 fL 8.7 - 12.3 fL [facility] Platelets (Bld) [#/Vol] 218 10*3/uL 146 - 337 K/uL [facility] RBC (Bld) [#/Vol] 4.42 10*6/uL [facility] Segmented neutrophils/100 WBC (Bld) 67.1 % [facility] WBC (Bld) [#/Vol] 10.01 10*3/uL 3.73 - 10 .10 K/uL [facility] CHEM 7 (LYTES,BUN,CREA,GLUC) on 09-28-2023 Anion gap [Moles/Vol] 10 mmol/L Normal 7-17 [facility] Comment on above: Performed By: #### I PB, CA, MGO, CHM7 #### [facility] (DEFAULT) [address] [place] [address] 59370 Chloride [Moles/Vol] 103 mmol/L Normal 98-108 [facility] Comment on above: Performed By: #### I PB, CA, MGO, CHM7 #### [facility] (DEFAULT) [address] [place] [address] 38133 CO2 [Moles/Vol] 28 mmol/L Normal 21-31 [facility] Comment on above: Performed By: #### I PB, CA, MGO, CHM7 #### [facility] (DEFAULT) [address] [place] [address] 69210 Creatinine [Mass/Vol] 1.04 mg/dL Normal 0.70-1.30 [facility] Comment on above: Performed By: #### I PB, CA, MGO, CHM7 #### [facility] (DEFAULT) [address] [place] [address] 11550 GFR/1.73 sq M.predicted among non-blacks MDRD (S/P/Bld) [Vol rate/Area] 84 mL/min/{1.73_m2} Normal >=60 [facility] Comment on above: Result Comment: Repo rted eGFR is based on the CKD-EPI 2020 equation using creatinine, age, and sex. Performed By: #### I PB, CA, MGO, CHM7 #### [facility] (DEFAULT) [address] [place] [address] 94875 Glucose [Mass/Vol] 115 mg/dL High 70-99 [facility] Comment on above: Performed By: #### I PB, CA, MGO, CHM7 #### [facility] (DEFAULT) [address] [place] [address] 51277 Osmolality [Osmolality] 291 mosm/kg Normal 278-305 [facility] Comment on above: Performed By: #### I PB, CA, MGO, CHM7 #### [facility] (DEFAULT) [address] [place] [address] 50868 Potassium [Moles/Vol] 4.2 mmol/L Normal 3.5-5.0 [facility] Comment on above: Performed By: #### I PB, CA, MGO, CHM7 #### [facility] (DEFAULT) [address] [place] [address] 09185 Sodium [Moles/Vol] 137 mmol/L Normal 135-145 [facility] Comment on above: Performed By: #### I PB, CA, MGO, CHM7 #### [facility] (DEFAULT) [address] [place] [address] 06923 Urea nitrogen [Mass/Vol] 19 mg/dL Normal 7-25 [facility] Comment on above: Performed By: #### I PB, CA, MGO, CHM7 #### [facility] (DEFAULT) [address] [place] [address] 33123 Urea nitrogen/Creatinine [Mass ratio] 18 mg/mg Normal [facility] Comment on above: Performed By: #### I PB, CA, MGO, CHM7 #### [facility] (DEFAULT) [address] [place] [address] 27587 Anion gap [Moles/Vol] 10 mmol/L 7 - 17 mmol/L [facility] Chloride [Moles/Vol] 103 mmol/L 98 - 108 mmol/L [facility] CO2 [Moles/Vol] 28 mmol/L 21 - 31 mmol/L [facility] Creatinine [Mass/Vol] 1.04 mg/dL 0.70 - 1.30 mg/dL [facility] eGFR, CKD-EPI, Male 84 - PINF [facility] Comment on above: Reported eGFR is bas ed on the CKD-EPI 2020 equation using creatinine, age, and sex. Glucose [Mass/Vol] 115 mg/dL High 70 - 99 mg/dL [facility] Interpretation and review of laboratory results Abnormal [facility] Osmolality Calc [Osmolality] 291 [facility] Potassium [Moles/Vol] 4.2 mmol/L 3.5 - 5.0 mmol/L [facility] Sodium [Moles/Vol] 137 mmol/L 135 - 145 mmol/L [facility] Urea nitrogen [Mass/Vol] 19 mg/dL 7 - 25 mg/dL [facility] Urea nitrogen/Creatinine [Mass ratio] 18 mg/mg [facility] CONTINUOUS CARDIAC MONITORIN G STRIPon 09-28-2023 [facility] GLUCOSE POCon 09-28-2023 Glucose [Mass/Vol] 107 mg/dL High 70 - 99 mg/dL [facility] Interpretation and review of laboratory results Abnormal [facility] POC Sample Type CAPBL [facility] Test performed at ad dress of the patient encounter. [facility] MAGNESIUMon 09-28-2023 Magnesium [Mass/Vol] 1.8 mg/dL Normal 1.6-2.6 [facility] Comment on above: Performed By: #### I PB, CA, MGO, CHM7 #### [facility] (DEFAULT) [address] [place] [address] Magnesium [Mass/Vol] 1.8 mg/dL 1.6 - 2.6 mg/dL [facility] No Panel Informationon 09-27 Interpretation and review of laboratory results Normal [facility] PHOSPHATE, INORGANICon 09-27 Phosphorous 3.7 mg/dL Normal 2.2-4.6 [facility] Comment on above: Performed By: #### A 1CB, [id number] #### [facility] (DEFAULT) [address] [place] [address] 44239 Phosphate [Mass/Vol] 3.7 mg/dL 2.2 - 4.6 mg/dL [facility] PT,INR,PTTon 09-28-2023 aPTT Coag (Bld) [Time] 30.5 s Normal 24.0-34.3 [facility] Comment on above: Performed By: #### A 1CB, [id number] #### [facility] (DEFAULT) [address] [place] [address] 75045 INR Coag (PPP) [Relative time] 1.0 {INR} Normal 0.9-1.1 [facility] Comment on above: Performed By: #### Jonel 1CB, [id number] #### [facility] (DEFAULT) [address] [place] [address] 04373 PT Coag (PPP) [Time] 13.0 s Normal 11.9-14.2 [facility] Comment on above: Performed By: #### A 1CB, [id number] #### [facility] (DEFAULT) [address] [place] [address] 61242 aPTT Coag (PPP) [Time] 30.5 s [facility] INR Coag (Bld) [Relative time] 1.0 {INR} 0.9 - 1.1 [facility] Interpretation and review of laboratory results Normal [facility] PT Coag (PPP) [Time] 13.0 s [facility] URINE CULTUREOrdered By: Eric Paul on 09-28-2023 Bacteria identified Cx Nom (Unsp spec) Growth [facility] Bacteria identified Cx Nom (Unsp spec) 10,000-50,000 CFU/mL Mixed skin angela [facility] Comment on above: Multiple bacterial m orphotypes present. Suggest appropriate recollection if clinically indicated. [facility] ABORH TYPE RECONFIRMATIONon 09-27-2023 ABO/RH(D) TYPE Positive Normal [facility] Comment on above: Performed By: #### T YPEC #### [facility] (DEFAULT) [address] [place] [address] 11540 ABO/RH(D) TYPE Positive [facility] CALCIUMon 09-27-2023 Calcium [Mass/Vol] 9.8 mg/dL Normal 8.6-10.5 [facility] Comment on above: Performed By: #### A 1CB, [id number] #### [facility] (DEFAULT) [address] [place] [address] 50988 Calcium [Mass/Vol] 9.8 mg/dL 8.6 - 10. 5 mg/dL [facility] Calcium [Mass/Vol] 9.5 mg/dL Normal 8.6-10.5 [facility] Comment on above: Performed By: #### A 1CB, [id number] #### [facility] (DEFAULT) [address] [place] [address] 93380 CBC AND ELECTRONIC DIFFon Basophils (Bld) [#/Vol] 0.04 10*3/uL Normal 0.00-0.09 [facility] Comment on above: Performed By: #### L [id number] #### [facility] (DEFAULT) [address] [place] [address] 91473 Basophils/100 WBC (Bld) 0.3 % Normal [facility] Comment on above: Performed By: #### L [id number] #### [facility] (DEFAULT) [address] [address] DIFF STATUS Electronic Differential Normal [facility] Comment on above: Performed By: #### L [id number] #### [facility] (DEFAULT) [address] [place] [address] 47079 Eosinophils (Bld) [#/Vol] 0.24 10*3/uL Normal 0.00-0.48 [facility] Comment on above: Performed By: #### L [id number] #### [facility] (DEFAULT) [address] [address] Eosinophils/100 WBC (Bld) 2.1 % Normal [facility] Comment on above: Performed By: #### L [id number] #### [facility] (DEFAULT) [address] [address] Hematocrit (Bld) [Volume fraction] 46.5 % Normal 39.6-48.8 [facility] Comment on above: Performed By: #### L [id number] #### [facility] (DEFAULT) [address] 7[address]88 Hemoglobin (Bld) [Mass/Vol] 15.3 g/dL Normal 13.4-16.8 [facility] Comment on above: Performed By: #### L [id number] #### [facility] (DEFAULT) [address] [address] Immature Grans % 0.9 % Normal [facility] Comment on above: Performed By: #### L [id number] #### [facility] (DEFAULT) [address] [address]99 Immature Grans Absolute 0.10 K/uL High <=0.07 [facility] Comment on above: Performed By: #### L [id number] #### [facility] (DEFAULT) [address] [address]84 Lymphocytes (Bld) [#/Vol] 2.60 10*3/uL Normal 0.83-3.57 [facility] Comment on above: Performed By: #### L [id number] #### [facility] (DEFAULT) [address] 03744 Lymphocytes/100 WBC (Bld) 22.3 % Normal [facility] Comment on above: Performed By: #### L [id number] #### [facility] (DEFAULT) [address] [address] MCV (RBC) [Entitic vol] 91.7 fL Normal 79.0-94.5 [facility] Comment on above: Performed By: #### L [id number] #### [facility] (DEFAULT) [address] [address]90 Mean Cell Hgb 30.2 pg Normal 26.1-33.3 [facility] Comment on above: Performed By: #### L [id number] #### [facility] (DEFAULT) [address] 20305 Mean Cell Hgb Conc 32.9 g/dL Normal 31.9-36.5 [facility] Comment on above: Performed By: #### L [id number] #### [facility] (DEFAULT) [address] 92973 Monocytes (Bld) [#/Vol] 1.04 10*3/uL High 0.24-0.93 [facility] Comment on above: Performed By: #### L [id number] #### [facility] (DEFAULT) [address] 11194 Monocytes/100 WBC (Bld) 8.9 % Normal [facility] Comment on above: Performed By: #### L [id number] #### [facility] (DEFAULT) [address] [address] Nucleated RBC 0.0 /100 WBC Normal <=0.2 [facility] Comment on above: Performed By: #### L [id number] #### [facility] (DEFAULT) [address] [address]70 Platelet mean volume (Bld) [Entitic vol] 11.5 fL Normal 8.7-12.3 [facility] Comment on above: Performed By: #### L [id number] #### [facility] (DEFAULT) [address] [address]52 Platelets (Bld) [#/Vol] 254 10*3/uL Normal 146-337 [facility] Comment on above: Performed By: #### L [id number] #### [facility] (DEFAULT) [address] [place] [address] 10523 RBC (Bld) [#/Vol] 5.07 10*6/uL Normal 4.38-5.83 [facility] Comment on above: Performed By: #### L [id number] #### [facility] (DEFAULT) [address] [place] [address] 05691 RBC Distribution 13.2 % Normal 10.9-14.3 [facility] Comment on above: Performed By: #### L [id number] #### [facility] (DEFAULT) [address] [place] [address] 82155 Segs + Bands Auto 65.5 % Normal [facility] Comment on above: Performed By: #### L [id number] #### [facility] (DEFAULT) [address] [place] [address] 36851 Segs + Bands,Absolute Auto 7.62 K/uL High 1.57-6.19 [facility] Comment on above: Performed By: #### L [id number] #### [facility] (DEFAULT) [address] [place] [address] 79648 WBC (Bld) [#/Vol] 11.64 10*3/uL High 3.73-10.10 [facility] Comment on above: Performed By: #### L [id number] #### [facility] (DEFAULT) [address] [place] [address] 91245 Basophils (Bld) [#/Vol] 0.04 10*3/uL 0.00 - 0.09 K/uL [facility] Basophils/100 WBC (Bld) 0.3 % [facility] Differential cell count method Nom (Bld) Electronic Differential [facility] Eosinophils (Bld) [#/Vol] 0.24 10*3/uL 0.00 - 0.48 K/uL [facility] Eosinophils/100 WBC (Bld) 2.1 % [facility] Erythrocyte distribution width (RBC) [Ratio] 13.2 % 10.9 - 14.3 % [facility] Hematocrit (Bld) [Volume fraction] 46.5 % 39.6 - 48.8 % [facility] Hemoglobin (Bld) [Mass/Vol] 15.3 g/dL 13.4 - 16.8 g/dL [facility] Immature granulocytes (Bld) [#/Vol] 0.10 10*3/uL High NINF - 0.07 K/uL [facility] Immature granulocytes/100 WBC (Bld) 0.9 % [facility] Interpretation and review of laboratory results Abnormal [facility] Lymphocytes (Bld) [#/Vol] 2.60 10*3/uL 0.83 - 3.57 K/uL [facility] Lymphocytes/100 WBC (Bld) 22.3 % [facility] MCH (RBC) [Entitic mass] 30.2 pg 26.1 - 33.3 pg [facility] MCHC (RBC) [Mass/Vol] 32.9 g/dL 31.9 - 36.5 g/dL [facility] MCV (RBC) [Entitic vol] 91.7 fL 79.0 - 94.5 fL [facility] Monocytes (Bld) [#/Vol] 1.04 10*3/uL High 0.24 - 0.93 K/uL [facility] Monocytes/100 WBC (Bld) 8.9 % [facility] Neutrophils (Bld) [#/Vol] 7.62 10*3/uL High 1.57 - 6.19 K/uL [facility] Nucleated RBC/100 WBC (Bld) [Ratio] 0.0 % NINF [facility] Platelet mean volume (Bld) [Entitic vol] 11.5 fL 8.7 - 12.3 fL [facility] Platelets (Bld) [#/Vol] 254 10*3/uL 146 - 337 K/uL [facility] RBC (Bld) [#/Vol] 5.07 10*6/uL [facility] Segmented neutrophils/100 WBC (Bld) 65.5 % [facility] WBC (Bld) [#/Vol] 11.64 10*3/uL High 3.73 - 10 .10 K/uL [facility] Basophils (Bld) [#/Vol] 0.04 10*3/uL Normal 0.00-0.09 [facility] Comment on above: Performed By: #### Jonel DEVINE, [id number] #### [facility] (DEFAULT) [address] [place] [address] 67139 Basophils/100 WBC (Bld) 0.4 % Normal [facility] Comment on above: Performed By: #### Jonel DEVINE, [id number] #### [facility] (DEFAULT) [address] [place] [address] 39199 DIFF STATUS Electronic Differential Normal [facility] Comment on above: Performed By: ###Jim DEVINE, [id number] #### [facility] (DEFAULT) [address] [place] [address] 07340 Eosinophils (Bld) [#/Vol] 0.25 10*3/uL Normal 0.00-0.48 [facility] Comment on above: Performed By: ###Jim DEVINE, [id number] #### [facility] (DEFAULT) [address] [place] [address] 71709 Eosinophils/100 WBC (Bld) 2.4 % Normal [facility] Comment on above: Performed By: #### Jonel DEVINE, [id number] #### [facility] (DEFAULT) [address] [place] [address] 11707 Hematocrit (Bld) [Volume fraction] 43.8 % Normal 39.6-48.8 [facility] Comment on above: Performed By: #### Jonel DEVINE, [id number] #### [facility] (DEFAULT) [address] [place] [address] 80420 Hemoglobin (Bld) [Mass/Vol] 14.5 g/dL Normal 13.4-16.8 [facility] Comment on above: Performed By: #### Jonel DEVINE, [id number] #### [facility] (DEFAULT) [address] [place] [address] 98643 Immature Grans % 0.7 % Normal [facility] Comment on above: Performed By: #### A 1CB, [id number] #### [facility] (DEFAULT) [address] [place] [address] 02451 Immature Grans Absolute 0.07 K/uL Normal <=0.07 [facility] Comment on above: Performed By: #### A 1CB, [id number] #### [facility] (DEFAULT) [address] [place] [address] 07829 Lymphocytes (Bld) [#/Vol] 2.49 10*3/uL Normal 0.83-3.57 [facility] Comment on above: Performed By: #### A 1CB, [id number] #### [facility] (DEFAULT) [address] [place] [address] 77348 Lymphocytes/100 WBC (Bld) 24.1 % Normal [facility] Comment on above: Performed By: #### Jonel 1CB, [id number] #### [facility] (DEFAULT) [address] [address] MCV (RBC) [Entitic vol] 92.6 fL Normal 79.0-94.5 [facility] Comment on above: Performed By: #### A 1CB, [id number] #### [facility] (DEFAULT) [address] [place] [address] 39204 Mean Cell Hgb 30.7 pg Normal 26.1-33.3 [facility] Comment on above: Performed By: #### A 1CB, [id number] #### [facility] (DEFAULT) [address] [address] Mean Cell Hgb Conc 33.1 g/dL Normal 31.9-36.5 [facility] Comment on above: Performed By: #### A 1CB, [id number] #### [facility] (DEFAULT) [address] [place] [address] 48408 Monocytes (Bld) [#/Vol] 0.83 10*3/uL Normal 0.24-0.93 [facility] Comment on above: Performed By: #### Jonel DEVINE, [id number] #### [facility] (DEFAULT) [address] [place] [address] 49526 Monocytes/100 WBC (Bld) 8.0 % Normal [facility] Comment on above: Performed By: #### Jonel DEVINE, [id number] #### [facility] (DEFAULT) [address] [place] [address] 10447 Nucleated RBC 0.0 /100 WBC Normal <=0.2 [facility] Comment on above: Performed By: #### Jonel DEVINE, [id number] #### [facility] (DEFAULT) [address] [place] [address] 50259 Platelet mean volume (Bld) [Entitic vol] 11.5 fL Normal 8.7-12.3 [facility] Comment on above: Performed By: #### Jonel ManeB, [id number] #### [facility] (DEFAULT) [address] [place] [address] 98698 Platelets (Bld) [#/Vol] 252 10*3/uL Normal 146-337 [facility] Comment on above: Performed By: #### Jonel 1CB, [id number] #### [facility] (DEFAULT) [address] [place] [address] 44799 RBC (Bld) [#/Vol] 4.73 10*6/uL Normal 4.38-5.83 [facility] Comment on above: Performed By: #### Jonel 1CB, [id number] #### [facility] (DEFAULT) [address] [place] [address] 40486 RBC Distribution 13.0 % Normal 10.9-14.3 [facility] Comment on above: Performed By: #### Jonel 1CB, [id number] #### [facility] (DEFAULT) [address] [place] [address] 11016 Segs + Bands Auto 64.4 % Normal [facility] Comment on above: Performed By: #### Jonel 1CB, [id number] #### [facility] (DEFAULT) [address] [place] [address] 31679 Segs + Bands,Absolute Auto 6.65 K/uL High 1.57-6.19 [facility] Comment on above: Performed By: #### Jonel 1CB, [id number] #### [facility] (DEFAULT) [address] [place] [address] 72332 WBC (Bld) [#/Vol] 10.33 10*3/uL High 3.73-10.10 [facility] Comment on above: Performed By: #### Jonel DEVINE, [id number] #### [facility] (DEFAULT) [address] [place] [address] 89946 CHEM 7 (LYTES,BUN,CREA,GLUC) on 09-27-2023 Anion gap [Moles/Vol] 15 mmol/L Normal 7-17 [facility] Comment on above: Performed By: #### Jonel 1CB, [id number] #### [facility] (DEFAULT) [address] [place] [address] 47305 Chloride [Moles/Vol] 102 mmol/L Normal 98-108 [facility] Comment on above: Performed By: #### Jonel 1CB, [id number] #### [facility] (DEFAULT) [address] [place] [address] 26198 CO2 [Moles/Vol] 26 mmol/L Normal 21-31 [facility] Comment on above: Performed By: #### Jonel 1CB, [id number] #### [facility] (DEFAULT) [address] [place] [address] 50945 Creatinine [Mass/Vol] 0.93 mg/dL Normal 0.70-1.30 [facility] Comment on above: Performed By: #### Jonel 1CB, [id number] #### [facility] (DEFAULT) [address] [place] [address] 55563 eGFR, CKD-EPI, Male > Normal >=60 [facility] Comment on above: Result Comment: Repo rted eGFR is based on the CKD-EPI 2020 equation using creatinine, age, and sex. Performed By: #### Jonel DEVINE, [id number] #### [facility] (DEFAULT) [address] [place] [address] 54165 Glucose [Mass/Vol] 96 mg/dL Normal 70-99 [facility] Comment on above: Performed By: #### Jonel DEVINE, [id number] #### [facility] (DEFAULT) [address] [place] [address] 58653 Osmolality [Osmolality] 292 mosm/kg Normal 278-305 [facility] Comment on above: Performed By: #### Jonel DEVINE, [id number] #### [facility] (DEFAULT) [address] [place] [address] 94680 Potassium [Moles/Vol] 4.5 mmol/L Normal 3.5-5.0 [facility] Comment on above: Performed By: #### Jonel DEVINE, [id number] #### [facility] (DEFAULT) [address] [place] [address] 16497 Sodium [Moles/Vol] 138 mmol/L Normal 135-145 [facility] Comment on above: Performed By: #### Jonel DEVINE, [id number] #### [facility] (DEFAULT) [address] [place] [address] 08729 Urea nitrogen [Mass/Vol] 18 mg/dL Normal 7-25 [facility] Comment on above: Performed By: #### Jonel DEVINE, [id number] #### [facility] (DEFAULT) [address] [place] [address] 58201 Urea nitrogen/Creatinine [Mass ratio] 19 mg/mg Normal [facility] Comment on above: Performed By: #### Jonel ManeB, [id number] #### [facility] (DEFAULT) [address] [place] [address] Anion gap [Moles/Vol] 15 mmol/L 7 - 17 mmol/L [facility] Chloride [Moles/Vol] 102 mmol/L 98 - 108 mmol/L [facility] CO2 [Moles/Vol] 26 mmol/L 21 - 31 mmol/L [facility] Creatinine [Mass/Vol] 0.93 mg/dL 0.70 - 1.30 mg/dL [facility] eGFR, CKD-EPI, Male - PINF [facility] Comment on above: Reported eGFR is bas ed on the CKD-EPI 2020 equation using creatinine, age, and sex. Glucose [Mass/Vol] 96 mg/dL 70 - 99 mg/dL [facility] Osmolality Calc [Osmolality] 292 [facility] Potassium [Moles/Vol] 4.5 mmol/L 3.5 - 5.0 mmol/L [facility] Sodium [Moles/Vol] 138 mmol/L 135 - 145 mmol/L [facility] Urea nitrogen [Mass/Vol] 18 mg/dL 7 - 25 mg/dL [facility] Urea nitrogen/Creatinine [Mass ratio] 19 mg/mg [facility] CHM 7 - EDon 09-27-2023 Anion gap [Moles/Vol] 12 mmol/L Normal 7-17 [facility] Comment on above: Performed By: #### Jonel 1CB, [id number] #### [facility] (DEFAULT) [address] [address] Chloride [Moles/Vol] 103 mmol/L Normal 98-108 [facility] Comment on above: Performed By: ###Jim Remy 1CAntonio, [id number] #### [facility] (DEFAULT) [address] [place] [address] CO2 [Moles/Vol] 24 mmol/L Normal 21-31 [facility] Comment on above: Performed By: ###Jim Remy 1CB, [id number] #### [facility] (DEFAULT) [address] [place] [address] Creatinine [Mass/Vol] 0.88 mg/dL Normal 0.70-1.30 [facility] Comment on above: Performed By: #### A 1CB, [id number] #### [facility] (DEFAULT) [address] [place] [address]78 eGFR, CKD-EPI, Male > Normal >=60 [facility] Comment on above: Result Comment: Repo rted eGFR is based on the CKD-EPI 2020 equation using creatinine, age, and sex. Performed By: #### Jonel 1CB, [id number] #### [facility] (DEFAULT) [address] [place] [address]378 Glucose [Mass/Vol] 97 mg/dL Normal 70-99 [facility] Comment on above: Performed By: #### Jonel 1CB, [id number] #### [facility] (DEFAULT) [address] [place] [address] Osmolality [Osmolality] 285 mosm/kg Normal 278-305 [facility] Comment on above: Performed By: #### Jonel 1CB, [id number] #### [facility] (DEFAULT) [address] [place] [address]137 Potassium [Moles/Vol] 4.1 mmol/L Normal 3.5-5.0 [facility] Comment on above: Performed By: #### Jonel 1CB, [id number] #### [facility] (DEFAULT) [address] [place] [address]56 Sodium [Moles/Vol] 135 mmol/L Normal 135-145 [facility] Comment on above: Performed By: #### Jonel 1CB, [id number] #### [facility] (DEFAULT) [address] [place] [address]76 Urea nitrogen [Mass/Vol] 18 mg/dL Normal 7-25 [facility] Comment on above: Performed By: #### Jonel 1CB, [id number] #### [facility] (DEFAULT) [address] [place] [address]65 Urea nitrogen/Creatinine [Mass ratio] 20 mg/mg Normal [facility] Comment on above: Performed By: #### Jonel 1CB, [id number] #### [facility] (DEFAULT) [address] [place] [address] CONTINUOUS CARDIAC MONITORIN G STRIPOrdered By: Unassigned Pacs on 09-27-2023 [facility] Work Phone: CT HEAD WITHOUT CONTRASTon 0 09-27-2023 CT HEAD WITHOUT CONTRAST EXAM: CT HEAD WITHOUT CONTRAST, 09/27/2023 3:52 AM COMPARISON: Same day MRI of the brain. Head CT performed one day previously. CLINICAL INDICATIONS: 58 years Male Follow-up; RELEVANT CLINICAL HISTORY: TECHNIQUE: A series of transaxial computerized tomographic images are obtained from base of skull to vertex without intravenous contrast. Axial whole-head and thin section posterior fossa slices are provided. Reformats: Sagittal and coronal. FINDINGS: Stable developmental venous anomaly in the right frontal lobe. Stable adjacent parenchymal density medial to the developmental venous anomaly measuring approximately 13 mm on series 2, image 21 compatible with an incidental cavernous malformation upon correlation with the prior MRI. Stable curvilinear density in the right paramedian aspect of the cerebellar vermis compatible with an additional developmental venous anomaly upon correlation with the prior MRI. No mass effect or midline shift. No hydrocephalus. Cortical castle-white matter differentiation is preserved. Stable bilateral colpocephaly. No skull fracture. Small retention cyst or polyp in the right maxillary sinus. Partial opacification of the left mastoid air cells. 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 Stable incidental developmental venous anomaly in the right paramedian aspect of the cerebellar vermis. 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 Stable incidental developmental venous anomaly in the right paramedian aspect of the cerebellar vermis. OLOGY EXAM: CT HEAD WITHOU T CONTRAST, 09/27/2023 3:52 AM COMPARISON: Same day MRI of the brain. Head CT performed one day previously. CLINICAL INDICATIONS: 58 years Male Follow-up; RELEVANT CLINICAL HISTORY: TECHNIQUE: A series of transaxial computerized tomographic images are obtained from base of skull to vertex without intravenous contrast. Axial whole-head and thin section posterior fossa slices are provided. Reformats: Sagittal and coronal. FINDINGS: Stable developmental venous anomaly in the right frontal lobe. Stable adjacent parenchymal density medial to the developmental venous anomaly measuring approximately 13 mm on series 2, image 21 compatible with an incidental cavernous malformation upon correlation with the prior MRI. Stable curvilinear density in the right paramedian aspect of the cerebellar vermis compatible with an additional developmental venous anomaly upon correlation with the prior MRI. No mass effect or midline shift. No hydrocephalus. Cortical castle-white matter differentiation is preserved. Stable bilateral colpocephaly. No skull fracture. Small retention cyst or polyp in the right maxillary sinus. Partial opacification of the left mastoid air cells. RADIOLOGY Raphael Quan MD - 09/27/2023 EXAM: CT HEAD WITHOUT CONTRAST, 09/27/2023 3:52 AM COMPARISON: Same day MRI of the brain. Head CT performed one day previously. CLINICAL INDICATIONS: 58 years Male Follow-up; RELEVANT CLINICAL HISTORY: TECHNIQUE: A series of transaxial computerized tomographic images are obtained from base of skull to vertex without intravenous contrast. Axial whole-head and thin section posterior fossa slices are provided. Reformats: Sagittal and coronal. FINDINGS: Stable developmental venous anomaly in the right frontal lobe. Stable adjacent parenchymal density medial to the developmental venous anomaly measuring approximately 13 mm on series 2, image 21 compatible with an incidental cavernous malformation upon correlation with the prior MRI. Stable curvilinear density in the right paramedian aspect of the cerebellar vermis compatible with an additional developmental venous anomaly upon correlation with the prior MRI. No mass effect or midline shift. No hydrocephalus. Cortical castle-white matter differentiation is preserved. Stable bilateral colpocephaly. No skull fracture. Small retention cyst or polyp in the right maxillary sinus. Partial opacification of the left mastoid air cells. 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 Stable incidental developmental venous anomaly in the right paramedian aspect of the cerebellar vermis. [facility] Radiology Study observation (narrative) [facility] CT Head WO contrastOrdered B y: Raphael Quan on 09-27-2023 [facility] Work Phone: CT STROKE HEAD-STROKE ALERT ONLYon 09-27-2023 CT STROKE HEAD-STROKE ALERT ONLY EXAM: CT STROKE HEAD-STROKE ALERT ONLY, 09/26/2023 9:53 PM COMPARISON: CTA outside hospital same day CLINICAL INDICATIONS: 58 years Male Suspected Stroke; RELEVANT CLINICAL HISTORY: TECHNIQUE: A series of transaxial computerized tomographic images are obtained from base of skull to vertex without intravenous contrast. Axial whole-head and thin section posterior fossa slices are provided. Reformats: Sagittal and coronal. FINDINGS: Castle-white matter differentiation is preserved. No acute large territory infarction is seen. There is juxtacortical anterior right frontal hyperdensity corresponding to findings described by outside CT imaging and unchanged, measuring approximately 10 x 8 mm on virtual noncontrast axial series 603 image 36. This is associated with vascular staining and overlying large anterior frontal cortical vein. 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 There is no significant adjacent edema otherwise convincingly suggest presence of superimposed acute hemorrhage, though absence of more remote comparison imaging limits this characterization. No significant mass effect or midline shift. Ventricles are normal in size and configuration for patient age. Skull appears intact. Visualized orbits appear normal. Visualized paranasal sinuses are clear. Partial opacification of left mastoid air cells. No skull base or erosive change. Sella is normal. IMPRESSION: 1. Anterior right frontal juxtacortical hyperdensity associated large draining vein. 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 The absence of adjacent edema suggests the presence of superimposed acute hemorrhage may be less likely, though characterization is limited in the absence of more remote comparison imaging. MR correlation is advised to more definitively characterize. Findings were discussed with Keisha Alcantara MD at 09/26/23 on 10:02PM. I personally viewed and interpreted these images and I have reviewed and approved this report. Normal [facility] EXTRA MICROon 09-27-2023 [facility] HEMOGLOBIN A1Con 09-27-2023 Average glucose Estimated from glycated hemoglobin (Bld) [Mass/Vol] 111 mg/dL [facility] HbA1c (Bld) [Mass fraction] 5.5 % 4.7 - 5.6 % [facility] Glucose [Mass/Vol] 111 mg/dL Normal [facility] Comment on above: Performed By: #### Jonel 1CB, [id number] #### [facility] (DEFAULT) [address] [place] [address]320 Hemoglobin A1C HPLC 5.5 % Normal 4.7-5.6 [facility] Comment on above: Performed By: #### A 1CB, [id number] #### [facility] (DEFAULT) [address] [place] [address]797 HEPATIC FUNCTION PANELon Albumin [Mass/Vol] 4.4 g/dL Normal 3.5-5.0 [facility] Comment on above: Performed By: #### Jonel DEVINE, [id number] #### [facility] (DEFAULT) [address] [place] [address] ALP [Catalytic activity/Vol] 77 U/L Normal 32-126 [facility] Comment on above: Performed By: #### Jonel 1CB, [id number] #### [facility] (DEFAULT) [address] [place] [address] 45143 ALT [Catalytic activity/Vol] 30 U/L Normal 10-52 [facility] Comment on above: Performed By: #### Jonel 1CB, [id number] #### [facility] (DEFAULT) [address] [place] [address] 46612 AST [Catalytic activity/Vol] 24 U/L Normal 10-39 [facility] Comment on above: Performed By: #### Jonel 1CB, [id number] #### [facility] (DEFAULT) [address] [place] [address] 47842 Bilirubin [Mass/Vol] 0.6 mg/dL Normal <1.5 [facility] Comment on above: Performed By: #### Jonel 1CB, [id number] #### [facility] (DEFAULT) [address] [place] [address]3586 Bilirubin.indirect [Mass/Vol] 0.1 mg/dL Normal <0.3 [facility] Comment on above: Performed By: #### A 1CB, [id number] #### [facility] (DEFAULT) [address] [place] [address] Protein [Mass/Vol] 7.5 g/dL Normal 6.4-8.3 [facility] Comment on above: Performed By: #### A 1CB, [id number] #### [facility] (DEFAULT) [address] [place] [address] HIGH SENSITIVITY TROPONIN I - SINGLE ORDERon 09-27-2023 hs-Troponin I 3 ng/L Normal <53 [facility] Comment on above: Order Comment: Acute Coronary Syndrome (ACS): Initial Evaluation and Management:[email or web address] Performed By: #### Jonel 1CB, [id number] #### [facility] (DEFAULT) [address] [place] [address] LIPID PANEL WITH REFLEX TO Ashlyn ENRIQUE LDLon 09-27-2023 Cholesterol [Mass/Vol] 195 mg/dL NINF - 200 mg/dL [facility] Comment on above: [<200 mg/dL: Desirab le] [200-239 mg/dL: Borderline High] [>239 mg/dL: High] Cholesterol in HDL [Mass/Vol] 41 mg/dL 40 - PINF mg/dL [facility] Comment on above: [<40 mg/dL: Low (Hig h Risk)] [>59 mg/dL: High (Low Risk)] Cholesterol in LDL [Mass/Vol] 129 mg/dL High 0 - 99 mg/dL [facility] Comment on above: [<100 mg/dL: Optimal ] [100-129 mg/dL: Near Optimal] [130-159 mg/dL: Borderline High] [160-189 mg/dL: High] [>189 mg/dL: Very High] Cholesterol non HDL [Mass/Vol] 154 mg/dL High NINF - 130 mg/dL [facility] Cholesterol.total/C holesterol in HDL [Mass ratio] 4.8 {ratio} High NINF - 4.5 [facility] Interpretation and review of laboratory results Abnormal [facility] Triglyceride [Mass/Vol] 124 mg/dL NINF - 150 mg/dL [facility] Comment on above: [<150 mg/dL: Desirab le] [150-199 mg/dL: Borderline] [200-499 mg/dL: High] [>500 mg/dL: Very High] [facility] Calculated LDL Cholesterol 129 mg/dL High 0-99 [facility] Comment on above: Result Comment: [<10 0 mg/dL: Optimal] [100-129 mg/dL: Near Optimal] [130-159 mg/dL: Borderline High] [160-189 mg/dL: High] [>189 mg/dL: Very High] Performed By: #### Jonel DEVINE, [id number] #### [facility] (DEFAULT) [address] [address] Cholesterol [Mass/Vol] 195 mg/dL Normal <200 [facility] Comment on above: Result Comment: [<20 0 mg/dL: Desirable] [200-239 mg/dL: Borderline High] [>239 mg/dL: High] Performed By: #### Jonel DEVINE, [id number] #### [facility] (DEFAULT) [address] [place] [address]80 Cholesterol in HDL [Mass/Vol] 41 mg/dL Normal >=40 [facility] Comment on above: Result Comment: [<40 mg/dL: Low (High Risk)] [>59 mg/dL: High (Low Risk)] Performed By: ###Jim DEVINE, [id number] #### [facility] (DEFAULT) [address] [place] [address]106 Non HDL Cholesterol 154 mg/dL High <130 [facility] Comment on above: Performed By: ###Jim ManeB, [id number] #### [facility] (DEFAULT) [address] [address] Total Cholesterol/HDL Ratio 4.8 High <4.5 [facility] Comment on above: Performed By: #### Jonel 1CB, [id number] #### [facility] (DEFAULT) [address] [address] Triglyceride [Mass/Vol] 124 mg/dL Normal <150 [facility] Comment on above: Result Comment: [<15 0 mg/dL: Desirable] [150-199 mg/dL: Borderline] [200-499 mg/dL: High] [>500 mg/dL: Very High] Performed By: #### A 1CB, [id number] #### [facility] (DEFAULT) [address] [address] MAGNESIUMon 09-27-2023 Magnesium [Mass/Vol] 1.9 mg/dL Normal 1.6-2.6 [facility] Comment on above: Performed By: #### Jonel 1CB, [id number] #### [facility] (DEFAULT) [address] [address] Magnesium [Mass/Vol] 1.9 mg/dL 1.6 - 2.6 mg/dL [facility] Magnesium [Mass/Vol] 1.9 mg/dL Normal 1.6-2.6 [facility] Comment on above: Performed By: #### Jonel 1CB, [id number] #### [facility] (DEFAULT) [address] [address] MR Brain WO and W contrast I Von 09-27-2023 Addendum by Fab Wilks MD on 09/27/2023 3:18 PM EST ADDENDUM #1 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 [facility] Revised impression: 1. Developmental venous anomaly of the right frontal lobe with an associated cavernous malformation. 2. Second developmental venous anomaly in the posterior fossa/right cerebellar hemisphere. 3. No evidence of mass, hydrocephalus, or infarct. ESSION: 1. Developmental venous anomaly of the right frontal lobe. 2. Second developmental venous anomaly in the posterior fossa/right cerebellar hemisphere. 3. No evidence of mass, hydrocephalus, or infarct. OLOGY ORIGINAL REPORT EXAM: MRI BRAIN WITH AND WITHOUT CONTRAST, 09/27/2023 02:00 AM COMPARISON: September 26, 2023 CLINICAL INDICATIONS: 58 years Male follow-up CT imaging.; RELEVANT CLINICAL HISTORY: TECHNIQUE: A series of multisequence, multiplanar images of the brain are obtained both before and after intravenous administration of gadolinium-based contrast using standard protocol. Study was performed at 1.5 [facility]. CONTRAST: Gadopiclenol SOLN 1-25 mL; Route of Administration: Intravenous; Dose: 10 mL. FINDINGS: No areas of restricted diffusion to indicate acute infarct. Scattered T2 and FLAIR hyperintense foci in the white matter, reflective of microvascular ischemic change in a patient this age. No mass effect or edema. Tubular structure extending from the dural surface of the right frontal lobe into the right frontal parenchyma with age and branch vessels. On postcontrast imaging, this tubular structure and the enhanced MRI as do the branching vessels. A similar lesion is identified posterior fossa (series 21 image 97 for example). No hydrocephalus. Orbits and globes are normal. No fluid levels in paranasal sinuses. Signal characteristics of bone marrow are normal. No suspicious enhancing lesions. RADIOLOGY Fab Wilks MD - 09/27/2023 ORIGINAL REPORT EXAM: MRI BRAIN WITH AND WITHOUT CONTRAST, 09/27/2023 02:00 AM COMPARISON: September 26, 2023 CLINICAL INDICATIONS: 58 years Male follow-up CT imaging.; RELEVANT CLINICAL HISTORY: TECHNIQUE: A series of multisequence, multiplanar images of the brain are obtained both before and after intravenous administration of gadolinium-based contrast using standard protocol. Study was performed at 1.5 [facility]. CONTRAST: Gadopiclenol SOLN 1-25 mL; Route of Administration: Intravenous; Dose: 10 mL. FINDINGS: No areas of restricted diffusion to indicate acute infarct. Scattered T2 and FLAIR hyperintense foci in the white matter, reflective of microvascular ischemic change in a patient this age. No mass effect or edema. Tubular structure extending from the dural surface of the right frontal lobe into the right frontal parenchyma with age and branch vessels. On postcontrast imaging, this tubular structure and the enhanced MRI as do the branching vessels. A similar lesion is identified posterior fossa (series 21 image 97 for example). No hydrocephalus. Orbits and globes are normal. No fluid levels in paranasal sinuses. Signal characteristics of bone marrow are normal. No suspicious enhancing lesions. IMPRESSION Revised impression: 1. Developmental venous anomaly of the right frontal lobe with an associated cavernous malformation. 2. Second developmental venous anomaly in the posterior fossa/right cerebellar hemisphere. 3. No evidence of mass, hydrocephalus, or infarct. ESSION: 1. Developmental venous anomaly of the right frontal lobe. 2. Second developmental venous anomaly in the posterior fossa/right cerebellar hemisphere. 3. No evidence of mass, hydrocephalus, or infarct. [facility] Radiology Study observation (narrative) [facility] MR Brain WO and W contrast I VOrdered By: Fab Wilks on 09-27-2023 [facility] MRI BRAIN WITH AND WITHOUT C ONTRASTon 09-27-2023 MRI BRAIN WITH AND WITHOUT CONTRAST ADDENDUM #1 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 ORIGINAL REPORT EXAM: MRI BRAIN WITH AND WITHOUT CONTRAST, 09/27/2023 02:00 AM COMPARISON: September 26, 2023 CLINICAL INDICATIONS: 58 years Male follow-up CT imaging.; RELEVANT CLINICAL HISTORY: TECHNIQUE: A series of multisequence, multiplanar images of the brain are obtained both before and after intravenous administration of gadolinium-based contrast using standard protocol. Study was performed at 1.5 [facility]. CONTRAST: Gadopiclenol SOLN 1-25 mL; Route of Administration: Intravenous; Dose: 10 mL. FINDINGS: No areas of restricted diffusion to indicate acute infarct. Scattered T2 and FLAIR hyperintense foci in the white matter, reflective of microvascular ischemic change in a patient this age. No mass effect or edema. Tubular structure extending from the dural surface of the right frontal lobe into the right frontal parenchyma with age and branch vessels. On postcontrast imaging, this tubular structure and the enhanced MRI as do the branching vessels. A similar lesion is identified posterior fossa (series 21 image 97 for example). No hydrocephalus. Orbits and globes are normal. No fluid levels in paranasal sinuses. Signal characteristics of bone marrow are normal. No suspicious enhancing lesions. Revised impression: 1. Developmental venous anomaly of the right frontal lobe with an associated cavernous malformation. 2. Second developmental venous anomaly in the posterior fossa/right cerebellar hemisphere. 3. No evidence of mass, hydrocephalus, or infarct. ESSION: 1. Developmental venous anomaly of the right frontal lobe. 2. Second developmental venous anomaly in the posterior fossa/right cerebellar hemisphere. 3. No evidence of mass, hydrocephalus, or infarct. Normal [facility] No Panel Informationon 09-26 Interpretation and review of laboratory results Normal [facility] PHOSPHATE, INORGANICon 09-26 Phosphorous 3.2 mg/dL Normal 2.2-4.6 [facility] Comment on above: Performed By: #### A 1CB, [id number] #### [facility] (DEFAULT) [address] [address] Phosphate [Mass/Vol] 3.2 mg/dL 2.2 - 4.6 mg/dL [facility] Phosphorous 3.4 mg/dL Normal 2.2-4.6 [facility] Comment on above: Performed By: #### A 1CB, [id number] #### [facility] (DEFAULT) [address] [place] [address] PT,INR,PTTon 09-27-2023 aPTT Coag (Bld) [Time] 31.4 s Normal 24.0-34.3 [facility] Comment on above: Performed By: #### A 1CB, [id number] #### [facility] (DEFAULT) [address] [place] [address] 98046 INR Coag (PPP) [Relative time] 1.0 {INR} Normal 0.9-1.1 [facility] Comment on above: Performed By: #### A 1CB, [id number] #### [facility] (DEFAULT) [address] [place] [address]10 PT Coag (PPP) [Time] 12.6 s Normal 11.9-14.2 [facility] Comment on above: Performed By: #### A 1CB, [id number] #### [facility] (DEFAULT) [address] [place] [address]36 aPTT Coag (PPP) [Time] 31.4 s [facility] INR Coag (Bld) [Relative time] 1.0 {INR} 0.9 - 1.1 [facility] Interpretation and review of laboratory results Normal [facility] PT Coag (PPP) [Time] 12.6 s [facility] PTINR-STROKEon 09-27-2023 INR Coag (PPP) [Relative time] 1.0 {INR} Normal 0.9-1.1 [facility] Comment on above: Performed By: #### A 1CB, [id number] #### [facility] (DEFAULT) [address] [place] [address]239 PT Coag (PPP) [Time] 12.7 s Normal 11.9-14.2 [facility] Comment on above: Performed By: #### A 1CB, [id number] #### [facility] (DEFAULT) [address] [place] [address] 18933 PTTon 09-27-2023 aPTT Coag (Bld) [Time] 31.2 s Normal 24.0-34.3 [facility] Comment on above: Performed By: #### A 1CB, [id number] #### [facility] (DEFAULT) [address] [place] [address] 82253 TYPE AND SCREENon 09-27-2023 ABO/RH(D) TYPE Positive Normal [facility] Comment on above: Performed By: #### A 1CB, [id number] #### [facility] (DEFAULT) [address] [place] [address] 17211 ABO/RH(D) TYPE Positive [facility] URINALYSIS REFLEX TO CULTURE PERFORMABLEon 09-27-2023 Appearance (U) Clear Normal Clear [facility] Comment on above: Order Comment: For i ndwelling catheters, specimen collection is acceptable on catheter day 1 and 2 only. ? Performed By: #### U [id number] #### [facility] (DEFAULT) [address] [place] [address] 87645 Bacteria ABSENT Normal ABSENT [facility] Comment on above: Order Comment: For i ndwelling catheters, specimen collection is acceptable on catheter day 1 and 2 only. ? Performed By: #### U [id number] #### [facility] (DEFAULT) [address] [place] [address] 80404 Blood Urine Negative Normal Negative [facility] Comment on above: Order Comment: For i ndwelling catheters, specimen collection is acceptable on catheter day 1 and 2 only. ? Performed By: #### U [id number] #### [facility] (DEFAULT) [address] [place] [address] 52631 Color (U) Yellow Normal Yellow [facility] Comment on above: Order Comment: For i ndwelling catheters, specimen collection is acceptable on catheter day 1 and 2 only. ? Performed By: #### U [id number] #### [facility] (DEFAULT) [address] [place] [address] 37799 Glucose Ql (U) Negative Normal Negative [facility] Comment on above: Order Comment: For i ndwelling catheters, specimen collection is acceptable on catheter day 1 and 2 only. ? Performed By: #### U [id number] #### [facility] (DEFAULT) [address] [place] [address] 14274 Ketones Ql (U) Negative Normal Negative [facility] Comment on above: Order Comment: For i ndwelling catheters, specimen collection is acceptable on catheter day 1 and 2 only. ? Performed By: #### U [id number] #### [facility] (DEFAULT) [address] [place] [address] 97014 Leukocyte esterase Test strip Ql (U) Trace Abnormal Negative [facility] Comment on above: Order Comment: For i ndwelling catheters, specimen collection is acceptable on catheter day 1 and 2 only. ? Performed By: #### U [id number] #### [facility] (DEFAULT) [address] [place] [address] 37543 Nitrites Urine Negative Normal Negative [facility] Comment on above: Order Comment: For i ndwelling catheters, specimen collection is acceptable on catheter day 1 and 2 only. ? Performed By: #### U [id number] #### [facility] (DEFAULT) [address] [address] pH (U) 6.5 [pH] Normal 5.0-7.0 [facility] Comment on above: Order Comment: For i ndwelling catheters, specimen collection is acceptable on catheter day 1 and 2 only. ? Performed By: #### U [id number] #### [facility] (DEFAULT) [address] [place] [address] 87622 Protein Urine Trace Abnormal Negative [facility] Comment on above: Order Comment: For i ndwelling catheters, specimen collection is acceptable on catheter day 1 and 2 only. ? Performed By: #### U [id number] #### [facility] (DEFAULT) [address] [place] [address] 07149 RBC Urine 0-2 Normal 0-2 [facility] Comment on above: Order Comment: For i ndwelling catheters, specimen collection is acceptable on catheter day 1 and 2 only. ? Performed By: #### U [id number] #### [facility] (DEFAULT) [address] [place] [address] 65971 Specific [place] Urine > High 1.001-1.035 [facility] Comment on above: Order Comment: For i ndwelling catheters, specimen collection is acceptable on catheter day 1 and 2 only. ? Performed By: #### U [id number] #### [facility] (DEFAULT) [address] [place] [address] 92984 Squamous/Epithelial Cells 0-2/hpf Normal 0-2/hpf, 3-5/hpf = 1+ [facility] Comment on above: Order Comment: For i ndwelling catheters, specimen collection is acceptable on catheter day 1 and 2 only. ? Performed By: #### U [id number] #### [facility] (DEFAULT) [address] [place] [address] 16590 Urobilinogen Urine 1.0 E.U./dL Normal 0.2 E.U/d L, 1.0 E.U/dL [facility] Comment on above: Order Comment: For i ndwelling catheters, specimen collection is acceptable on catheter day 1 and 2 only. ? Performed By: #### U [id number] #### [facility] (DEFAULT) [address] [place] [address] 49265 WBC LM.HPF (Urine sed) [#/Area] /[HPF] Abnormal 0 - 5 [facility] Comment on above: Order Comment: For i ndwelling catheters, specimen collection is acceptable on catheter day 1 and 2 only. ? Performed By: #### U [id number] #### [facility] (DEFAULT) [address] [place] [address] 45491 Appearance (U) Clear Clear [facility] Bacteria LM Ql (Urine sed) ABSENT ABSENT [facility] Color (U) Yellow Yellow [facility] Epithelial cells.squamous LM Ql (Urine sed) 0-2/hpf 0-2/hpf, 3-5/hpf = 1+ [facility] Glucose Test strip (U) [Mass/Vol] Negative Negative [facility] Interpretation and review of laboratory results Abnormal [facility] Ketones (U) [Mass/Vol] Negative Negative [facility] Leukocyte esterase Test strip Ql (U) Trace Abnormal Negative [facility] Nitrite Ql (U) Negative Negative [facility] pH (U) 6.5 [pH] 5.0 - 7.0 [facility] Protein (U) [Mass/Vol] Trace Abnormal Negative [facility] RBC (U) [#/Vol] Negative Negative [facility] RBC LM.HPF (Urine sed) [#/Area] 0-2 [facility] Specific gravity (U) [Rel density] High 1.001 - 1.035 [facility] Urobilinogen (U) [Mass/Vol] 1.0 E.U./dL 0.2 E.U/dL, 1.0 E.U/dL [facility] WBC LM.HPF (Urine sed) [#/Area] /[HPF] Abnormal [facility] URINE CULTUREon 09-27-2023 Bacteria identified Cx Nom (U) Normal [facility] Comment on above: Order Comment: For i ndwelling catheters, specimen collection is acceptable on catheter day 1 and 2 only. Gordon top vacutainer. Urine must be to the fill line to process (4mls). If minimum volume, send urine in a yellow top vacutainer tube. For indwelling catheters, specimen collection is acceptable on catheter day 1 and 2 only. ? Result Comment: Grow 4MIXED SKIN FLORAMIXED SKIN ANGELA 10,000-50,000 CFU/mL Mixed skin angela Multiple bacterial morphotypes present. Suggest appropriate recollection if clinically indicated. Performed By: #### U R #### [facility] (DEFAULT) [address] [place] [address] 65704 CALCIUMon 09-26-2023 Calcium [Mass/Vol] 9.5 mg/dL 8.6 - 10. 5 mg/dL [facility] CBC AND ELECTRONIC DIFFon Basophils (Bld) [#/Vol] 0.04 10*3/uL 0.00 - 0.09 K/uL [facility] Basophils/100 WBC (Bld) 0.4 % [facility] Differential cell count method Nom (Bld) Electronic Differential [facility] Eosinophils (Bld) [#/Vol] 0.25 10*3/uL 0.00 - 0.48 K/uL [facility] Eosinophils/100 WBC (Bld) 2.4 % [facility] Erythrocyte distribution width (RBC) [Ratio] 13.0 % 10.9 - 14.3 % [facility] Hematocrit (Bld) [Volume fraction] 43.8 % 39.6 - 48.8 % [facility] Hemoglobin (Bld) [Mass/Vol] 14.5 g/dL 13.4 - 16.8 g/dL [facility] Immature granulocytes (Bld) [#/Vol] 0.07 10*3/uL NINF - 0.07 K/uL [facility] Immature granulocytes/100 WBC (Bld) 0.7 % [facility] Interpretation and review of laboratory results Abnormal [facility] Lymphocytes (Bld) [#/Vol] 2.49 10*3/uL 0.83 - 3.57 K/uL [facility] Lymphocytes/100 WBC (Bld) 24.1 % [facility] MCH (RBC) [Entitic mass] 30.7 pg 26.1 - 33.3 pg [facility] MCHC (RBC) [Mass/Vol] 33.1 g/dL 31.9 - 36.5 g/dL [facility] MCV (RBC) [Entitic vol] 92.6 fL 79.0 - 94.5 fL [facility] Monocytes (Bld) [#/Vol] 0.83 10*3/uL 0.24 - 0.93 K/uL [facility] Monocytes/100 WBC (Bld) 8.0 % [facility] Neutrophils (Bld) [#/Vol] 6.65 10*3/uL High 1.57 - 6.19 K/uL [facility] Nucleated RBC/100 WBC (Bld) [Ratio] 0.0 % NINF [facility] Platelet mean volume (Bld) [Entitic vol] 11.5 fL 8.7 - 12.3 fL [facility] Platelets (Bld) [#/Vol] 252 10*3/uL 146 - 337 K/uL [facility] RBC (Bld) [#/Vol] 4.73 10*6/uL [facility] Segmented neutrophils/100 WBC (Bld) 64.4 % [facility] WBC (Bld) [#/Vol] 10.33 10*3/uL High 3.73 - 10 .10 K/uL [facility] CHM 7 - EDon 09-26-2023 Anion gap [Moles/Vol] 12 mmol/L 7 - 17 mmol/L [facility] Chloride [Moles/Vol] 103 mmol/L 98 - 108 mmol/L [facility] CO2 [Moles/Vol] 24 mmol/L 21 - 31 mmol/L [facility] Creatinine [Mass/Vol] 0.88 mg/dL 0.70 - 1.30 mg/dL [facility] eGFR, CKD-EPI, Male - PINF [facility] Comment on above: Reported eGFR is bas ed on the CKD-EPI 2020 equation using creatinine, age, and sex. Glucose [Mass/Vol] 97 mg/dL 70 - 99 mg/dL [facility] Osmolality Calc [Osmolality] 285 [facility] Potassium [Moles/Vol] 4.1 mmol/L 3.5 - 5.0 mmol/L [facility] Sodium [Moles/Vol] 135 mmol/L 135 - 145 mmol/L [facility] Urea nitrogen [Mass/Vol] 18 mg/dL 7 - 25 mg/dL [facility] Urea nitrogen/Creatinine [Mass ratio] 20 mg/mg [facility] CT Head limitedon 09-26-2023 IMPRESSION: 1. Anterior right frontal juxtacortical hyperdensity associated large draining vein. 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 The absence of adjacent edema suggests the presence of superimposed acute hemorrhage may be less likely, though characterization is limited in the absence of more remote comparison imaging. MR correlation is advised to more definitively characterize. Findings were discussed with Keisha Alcantara MD at 09/26/23 on 10:02PM. I personally viewed and interpreted these images and I have reviewed and approved this report. OLOGY EXAM: CT STROKE HEAD -STROKE ALERT ONLY, 09/26/2023 9:53 PM COMPARISON: CTA outside hospital same day CLINICAL INDICATIONS: 58 years Male Suspected Stroke; RELEVANT CLINICAL HISTORY: TECHNIQUE: A series of transaxial computerized tomographic images are obtained from base of skull to vertex without intravenous contrast. Axial whole-head and thin section posterior fossa slices are provided. Reformats: Sagittal and coronal. FINDINGS: Castle-white matter differentiation is preserved. No acute large territory infarction is seen. There is juxtacortical anterior right frontal hyperdensity corresponding to findings described by outside CT imaging and unchanged, measuring approximately 10 x 8 mm on virtual noncontrast axial series 603 image 36. This is associated with vascular staining and overlying large anterior frontal cortical vein. 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 There is no significant adjacent edema otherwise convincingly suggest presence of superimposed acute hemorrhage, though absence of more remote comparison imaging limits this characterization. No significant mass effect or midline shift. Ventricles are normal in size and configuration for patient age. Skull appears intact. Visualized orbits appear normal. Visualized paranasal sinuses are clear. Partial opacification of left mastoid air cells. No skull base or erosive change. Sella is normal. RADIOLOGY Alberto Soares MD - 09/26/2023 EXAM: CT STROKE HEAD-STROKE ALERT ONLY, 09/26/2023 9:53 PM COMPARISON: CTA outside hospital same day CLINICAL INDICATIONS: 58 years Male Suspected Stroke; RELEVANT CLINICAL HISTORY: TECHNIQUE: A series of transaxial computerized tomographic images are obtained from base of skull to vertex without intravenous contrast. Axial whole-head and thin section posterior fossa slices are provided. Reformats: Sagittal and coronal. FINDINGS: Castle-white matter differentiation is preserved. No acute large territory infarction is seen. There is juxtacortical anterior right frontal hyperdensity corresponding to findings described by outside CT imaging and unchanged, measuring approximately 10 x 8 mm on virtual noncontrast axial series 603 image 36. This is associated with vascular staining and overlying large anterior frontal cortical vein. 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 There is no significant adjacent edema otherwise convincingly suggest presence of superimposed acute hemorrhage, though absence of more remote comparison imaging limits this characterization. No significant mass effect or midline shift. Ventricles are normal in size and configuration for patient age. Skull appears intact. Visualized orbits appear normal. Visualized paranasal sinuses are clear. Partial opacification of left mastoid air cells. No skull base or erosive change. Sella is normal. IMPRESSION IMPRESSION: 1. Anterior right frontal juxtacortical hyperdensity associated large draining vein. 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 The absence of adjacent edema suggests the presence of superimposed acute hemorrhage may be less likely, though characterization is limited in the absence of more remote comparison imaging. MR correlation is advised to more definitively characterize. Findings were discussed with Keisha Alcantara MD at 09/26/23 on 10:02PM. I personally viewed and interpreted these images and I have reviewed and approved this report. [facility] Radiology Study observation (narrative) [facility] CT Head limitedOrdered By: Marilyn Soares on 09-26-2023 [facility] Work Phone: GLUCOSE POCon 09-26-2023 Glucose [Mass/Vol] 87 mg/dL 70 - 99 mg/dL [facility] POC Sample Type CAPBL [facility] Test performed at ad dress of the patient encounter. [facility] HEPATIC FUNCTION PANELon Albumin [Mass/Vol] 4.4 g/dL 3.5 - 5.0 g/dL [facility] ALP [Catalytic activity/Vol] 77 U/L 32 - 126 U/L [facility] ALT [Catalytic activity/Vol] 30 U/L 10 - 52 U/L [facility] AST [Catalytic activity/Vol] 24 U/L 10 - 39 U/L [facility] Bilirubin [Mass/Vol] 0.6 mg/dL NINF - 1.5 mg/dL [facility] Bilirubin.direct [Mass/Vol] 0.1 mg/dL NINF - 0.3 mg/dL [facility] Protein [Mass/Vol] 7.5 g/dL 6.4 - 8.3 g/dL [facility] HIGH SENSITIVITY TROPONIN I - SINGLE ORDERon 09-26-2023 Interpretation and review of laboratory results Normal [facility] Troponin I.cardiac High sensitivity method [Mass/Vol] 3 ng/L NINF - 53 ng/L [facility] MAGNESIUMon 09-26-2023 Magnesium [Mass/Vol] 1.9 mg/dL 1.6 - 2.6 mg/dL [facility] No Panel Informationon 09-25 Interpretation and review of laboratory results Normal [facility] PHOSPHATE, INORGANICon 09-25 Phosphate [Mass/Vol] 3.4 mg/dL 2.2 - 4.6 mg/dL [facility] PTINR-STROKEon 09-26-2023 INR Coag (Bld) [Relative time] 1.0 {INR} 0.9 - 1.1 [facility] PT Coag (PPP) [Time] 12.7 s [facility] PTTon 09-26-2023 aPTT Coag (PPP) [Time] 31.2 s [facility] Interpretation and review of laboratory results Normal [facility] CBC W Auto Differential pane l (Bld)on 09-14-2023 Basophils (Bld) [#/Vol] 0.03 10*3/uL <0.11 k/uL [facility] Basophils/100 WBC (Bld) 0.3 % [facility] Differential cell count method Nom (Bld) Auto [facility] Eosinophils (Bld) [#/Vol] 0.18 10*3/uL <0.46 k/uL [facility] Eosinophils/100 WBC (Bld) 1.7 % [facility] Erythrocyte distribution width (RBC) [Ratio] 13.0 % 11.5 - 15.0 % [facility] Hematocrit (Bld) [Volume fraction] 46.0 % 39.0 - 51.0 % [facility] Hemoglobin (Bld) [Mass/Vol] 15.0 g/dL 13.0 - 17.0 g/dL [facility] Immature granulocytes (Bld) [#/Vol] 0.05 10*3/uL <0.10 k/uL [facility] Immature granulocytes/100 WBC (Bld) 0.5 % [facility] Lymphocytes (Bld) [#/Vol] 2.03 10*3/uL 1.00 - 4.00 k/uL [facility] Lymphocytes/100 WBC (Bld) 19.3 % [facility] MCH (RBC) [Entitic mass] 30.1 pg 26.0 - 34.0 pg [facility] MCHC (RBC) [Mass/Vol] 32.6 g/dL 30.5 - 36.0 g/dL [facility] MCV (RBC) [Entitic vol] 92.4 fL 80.0 - 100.0 fL [facility] Monocytes (Bld) [#/Vol] 0.78 10*3/uL <0.87 k/uL [facility] Monocytes/100 WBC (Bld) 7.4 % [facility] Neutrophils (Bld) [#/Vol] 7.45 10*3/uL 1.45 - 7.50 k/uL [facility] Neutrophils/100 WBC (Bld) 70.8 % [facility] Nucleated RBC (Bld) [#/Vol] <0.01 k/uL [facility] Nucleated RBC/100 WBC (Bld) [Ratio] 0.0 /100 WBC [facility] Platelet mean volume (Bld) [Entitic vol] 12.0 fL 9.0 - 12.7 fL [facility] Platelets (Bld) [#/Vol] 262 10*3/uL 150 - 400 k/uL [facility] RBC (Bld) [#/Vol] 4.98 10*6/uL 4.20 - 6.0 0 m/uL [facility] WBC (Bld) [#/Vol] 10.52 10*3/uL 3.70 - 11 .00 k/uL [facility] PSA SerPl-mCncon 09-12-2023 Prostate specific Ag [Mass/Vol] 2.01 ng/mL Normal <2.60 [facility] Comment on above: Order Comment: Speci men Type: BLOOD SPECIMEN Ordering Facility: [facility] Address: [address] [place] [address] Result Comment: Tota l PSA test methodology used is the Electrochemiluminescence Immunoassay by [employer]. Total PSA values by differing methodologies cannot be interchanged. Performed By: #### 2 [id number] #### [facility] CLIA [id number] [address] [place] [address] [place] [address] [place] XR Chest PA and Lateralon IMPRESSION: No acute findings in the chest. Claims Representative: MARTIN Transcribe Date/Time: Jul 31 2023 1:42P Dictated by : ADA TAYLOR MD This examination was interpreted and the report reviewed and electronically signed by: ADA TAYLOR MD on Jul 31 2023 1:46PM [facility] DIVISION OF RADIOLOGY * * *Final Report* * * DATE OF EXAM: Jul 31 2023 1:26PM WOX 5291 - XR CHEST 2V FRONTAL/LAT / PROCEDURE REASON: Subacute cough * * * * Physician Interpretation * * * * CHEST X-RAY CLINICAL HISTORY: Subacute cough TECHNIQUE: Upright frontal and lateral views. COMPARISON: 01/06/2014 RESULT: Heart/mediastinum: Within normal limits. Lungs/pleura: No consolidation or focal infiltrate. On the lateral view there is a band of opacity projecting lower anterior lung casillas. This correlates with the prominent fat pad left anterior lung base on previous 06/08/[address] No pleural effusion or CHF changes. Bones/soft tissues: Unremarkable. Lines/tubes/devices: None visualized. DIVISION OF RADIOLOGY Provider, [facility] Jermaine Thomas - 07/31/2023 * * *Final Report* * * DATE OF EXAM: Jul 31 2023 1:26PM WOX 5291 - XR CHEST 2V FRONTAL/LAT / PROCEDURE REASON: Subacute cough * * * * Physician Interpretation * * * * CHEST X-RAY CLINICAL HISTORY: Subacute cough TECHNIQUE: Upright frontal and lateral views. COMPARISON: 01/06/2014 RESULT: Heart/mediastinum: Within normal limits. Lungs/pleura: No consolidation or focal infiltrate. On the lateral view there is a band of opacity projecting lower anterior lung casillas. This correlates with the prominent fat pad left anterior lung base on previous 06/08/[address] No pleural effusion or CHF changes. Bones/soft tissues: Unremarkable. Lines/tubes/devices: None visualized. IMPRESSION IMPRESSION: No acute findings in the chest. Claims Representative: PSCB Transcribe Date/Time: Jul 31 2023 1:42P Dictated by : ADA TAYLOR MD This examination was interpreted and the report reviewed and electronically signed by: ADA TAYLOR MD on Jul 31 2023 1:46PM EST [facility] Radiology Study observation (narrative) [facility] XR Chest PA and LateralOrder ed By: [facility] Provider on 07-31-2023 [facility] UA DIP, URINE (POC)on 2022 BILIRUBIN UA (POCT) Negative Negative [facility] CLARITY UA (POCT) Cloudy [facility] COLOR UA (POCT) Yellow [facility] GLUCOSE UA (POCT) Negative Negative mg/dL [facility] Hemoglobin Ql (U) Small Abnormal Negative [facility] KETONE UA (POCT) Negative Negative mg/dL [facility] LEUKOCYTES UA (POCT) Small Abnormal Negative [facility] NITRITE UA (POCT) Negative Negative [facility] PH UA (POCT) 7.0 4.5 - 8.0 [facility] Protein Ql (U) 30 mg/dL Abnormal Negative mg/dL [facility] SPECIFIC GRAVITY UA (POCT) 1.015 1.005 - 1.030 [facility] UROBILINOGEN UA (POCT) 0.2 E.U./dL Normal E.U./dL [facility] TSH BLDon 06-08-2022 TSH Qn 0.058 m[IU]/L Low 0.270 - 4.200 mIU/L [facility] VITAMIN D 25 HYDROXYon 06-08 25-hydroxyvitamin D3 [Mass/Vol] 28.5 ng/mL Low 31.0 - 80.0 ng/mL [facility] XR PELVIS 1V APon 01-14-2022 [facility] XR HIP BILAT 5V PEL/AP/LAT E ACH HIPon 03-18-2021 IMPRESSION: No acute osseous findings bilateral hips. Minimal bilateral hip osteoarthritis. Claims Representative: MARTIN Transcribe Date/Time: Mar 18 2021 2:19P Dictated by : ROB OHARA MD This examination was interpreted and the report reviewed and electronically signed by: ROB OHARA MD on Mar 18 2021 2:20PM [facility] DIVISION OF RADIOLOGY * * *Final Report* * * DATE OF EXAM: Mar 18 2021 1:44PM STX 5353 - XR HIP ARNULFO 5V PEL+ AP/LAT EA HIP / PROCEDURE REASON: Pain * * * * Physician Interpretation * * * * EXAMINATION: XR HIP ARNULFO 5V PEL+ AP/LAT EA HIP CLINICAL HISTORY: LOWER BACK PAIN, LEGS AND HIPS PAIN Pain Technique: XR HIP ARNULFO 5V PEL+ AP/LAT EA HIP -- BILATERAL with 3 EACH views on 5 images Comparison: None RESULT: No fracture or dislocation. Joint spaces are maintained. Minimal marginal osteophytes. SI joints and pubic symphysis are intact. Degenerative changes in the lower lumbar spine. DIVISION OF RADIOLOGY Provider, [facility] Jermaine crowley [place] - 03/18/2021 * * *Final Report* * * DATE OF EXAM: Mar 18 2021 1:44PM STX 5353 - XR HIP ARNULFO 5V PEL+ AP/LAT EA HIP / PROCEDURE REASON: Pain * * * * Physician Interpretation * * * * EXAMINATION: XR HIP ARNULFO 5V PEL+ AP/LAT EA HIP CLINICAL HISTORY: LOWER BACK PAIN, LEGS AND HIPS PAIN Pain Technique: XR HIP ARNULFO 5V PEL+ AP/LAT EA HIP -- BILATERAL with 3 EACH views on 5 images Comparison: None RESULT: No fracture or dislocation. Joint spaces are maintained. Minimal marginal osteophytes. SI joints and pubic symphysis are intact. Degenerative changes in the lower lumbar spine. IMPRESSION IMPRESSION: No acute osseous findings bilateral hips. Minimal bilateral hip osteoarthritis. Claims [facility] Transcribe Date/Time: Mar 18 2021 2:19P Dictated by : ROB OHARA MD This examination was interpreted and the report reviewed and electronically signed by: ROB OHARA MD on Mar 18 2021 2:20PM EST [facility] Radiology Study observation (narrative) [facility] XR HIP BILAT 5V PEL/AP/LAT E ACH HIPOrdered By: [facility] Provider on 03-18-2021 [facility] Basic Panelon 02-11-2019 Creatinine [Mass/Vol] 1.02 mg/dL Normal 0.67-1.17 [facility] Comment on above: Performed By: #### P 8 #### [facility] [address] [place], [place] [address] Anion gap [Moles/Vol] 9 mmol/L Normal 8-16 [facility] [facility] Comment on above: Performed By: #### P 8 #### [facility] [address] [place], [place] [address] Calcium [Mass/Vol] 8.6 mg/dL Normal 8.5-10.1 [facility] Comment on above: Performed By: #### P 8 #### [facility] [address] [place], [place] [address] CO2 [Moles/Vol] 29 mmol/L Normal 21-32 [facility] Comment on above: Performed By: #### P 8 #### [facility] [address] [place], [place] [address] Glucose [Mass/Vol] 82 mg/dL Normal 70-99 [facility] Comment on above: Performed By: #### P 8 #### [facility] [address] [place], [place] [address] Urea nitrogen [Mass/Vol] 12 mg/dL Normal 7-18 [facility] Comment on above: Performed By: #### P 8 #### [facility] [address] [place], [place] [address] Chloride [Moles/Vol] 103 mmol/L Normal 98-107 [facility] Comment on above: Performed By: #### P 8 #### [facility] [address] [place], [place] [address] Potassium [Moles/Vol] 4.3 mmol/L Normal 3.5-5.1 [facility] Comment on above: Performed By: #### P 8 #### [facility] [address] [place], [place] [address] Sodium [Moles/Vol] 137 mmol/L Normal 136-145 [facility] Comment on above: Performed By: #### P 8 #### [facility] [address] [place], [place] [address] MDRD GFRon 02-11-2019 GFR/1.73 sq M predicted among non-blacks MDRD (S/P/Bld) [Vol rate/Area] mL/min/{1.73_m2} Normal >60mL/min/1. 73m2 [facility] Comment on above: Result Comment: If t he patient is , multiply the result by 1.210. Performed By: #### G FR #### [place] [address] Hemogramon 02-10-2019 Erythrocyte distribution width (RBC) [Ratio] 14.9 % High 11.6-14.4 [facility] Comment on above: Performed By: #### C BC1 #### [place] [address] Hematocrit (Bld) [Volume fraction] 44.2 % Normal 40.1-51.0 [facility] Comment on above: Performed By: #### C BC1 #### [place] [address] Hemoglobin (Bld) [Mass/Vol] 14.4 g/dL Normal 13.7-17.5 [facility] Comment on above: Performed By: #### C BC1 #### [place] [address] MCH (RBC) [Entitic mass] 30.7 pg Normal 25.7-32.2 [facility] Comment on above: Performed By: #### C BC1 #### [address] [address] MCHC (RBC) [Mass/Vol] 32.6 % Normal 32.3-36.5 [facility] Comment on above: Performed By: #### C BC1 #### [place] [id number] MCV (RBC) [Entitic vol] 94.2 fL Normal 83.2-95.6 [facility] Comment on above: Performed By: #### C BC1 #### [facility] [address] [place], [place] [address] Platelet mean volume (Bld) [Entitic vol] 10.7 fL Normal 8.7-12.0 [facility] Comment on above: Performed By: #### C BC1 #### [facility] 1 [place] [address] Platelets (Bld) [#/Vol] 225 thou/cmm Normal 141-365 [facility] Comment on above: Performed By: #### C BC1 #### [facility] [address] [place] [address] RBC (Bld) [#/Vol] 4.69 mil/cmm Normal 4.63-6.08 [facility] Comment on above: Performed By: #### Lou BC1 #### [facility] [address] [place] [address] RDW SD 51.5 fl High 36.1-45.8 [facility] Comment on above: Performed By: #### C BC1 #### [facility] [address] [place] [address] WBC (Bld) [#/Vol] 10.16 thou/cmm High 4.23-9.07 [facility] Comment on above: Performed By: #### Lou BC1 #### [facility] [address] [place] [address] Vital Signs Date Time Vital Sign Value Performing Clinician Facility 01-17-2025 10:23-0400 Diastolic blood pressure 66 mm[Hg] Ino Esqueda APRN.REBRANDER Work Phone: [facility] 01-17-2025 10:23-0400 Heart rate 69 /min Ino Esqueda APRN.CNP Work Phone: [facility] 01-17-2025 10:23-0400 Systolic blood pressure 117 mm[Hg] Ino Eqsueda APRN.REBRANDER Work Phone: [facility] 01-14-2025 10:26-0400 Body mass index (BMI) [Ratio] 37.05 kg/m2 Ino Esqueda PHYSICIAN UNDERWRITER.REBRANDER Work Phone: [facility] 01-14-2025 10:26-0400 Body weight 101 kg Ino Esqueda PHYSICIAN UNDERWRITER.REBRANDER Work Phone: [facility] 01-14-2025 10:26-0400 Diastolic blood pressure 71 mm[Hg] Ino Esqudea PHYSICIAN UNDERWRITER.REBRANDER Work Phone: [facility] 01-14-2025 10:26-0400 Heart rate 68 /min Ino Esqueda PHYSICIAN UNDERWRITER.REBRANDER Work Phone: [facility] 01-14-2025 10:26-0400 Systolic blood pressure 123 mm[Hg] Ino Esqueda PHYSICIAN UNDERWRITER.REBRANDER Work Phone: [facility] 12-25-2024 13:27-0400 Body mass index (BMI) [Ratio] 36.5 kg/m2 Greyson Swank PHYSICIAN UNDERWRITER.REBRANDER Work Phone: [facility] 12-25-2024 13:27-0400 Body temperature 98.4 [degF] Greyson Swank PHYSICIAN UNDERWRITER.REBRANDER Work Phone: [facility] 12-25-2024 13:27-0400 Body weight 99.5 kg Greyson Swank PHYSICIAN UNDERWRITER.REBRANDER Work Phone: [facility] 12-25-2024 13:27-0400 Diastolic blood pressure 70 mm[Hg] Greyson Swank PHYSICIAN UNDERWRITER.REBRANDER Work Phone: [facility] 12-25-2024 13:27-0400 Heart rate 67 /min Greyson Swank PHYSICIAN UNDERWRITER.REBRANDER Work Phone: [facility] 12-25-2024 13:27-0400 Respiratory rate 20 /min Greyson Swank PHYSICIAN UNDERWRITER.REBRANDER Work Phone: [facility] 12-25-2024 13:27-0400 SaO2% (BldA) [Mass fraction] 98 % Greyson Swank PHYSICIAN UNDERWRITER.REBRANDER Work Phone: [facility] 12-25-2024 13:27-0400 Systolic blood pressure 128 mm[Hg] Greyson Ganesh OAKESREBRANDER Work Phone: [facility] 11-05-2024 20:19-0400 Body temperature 98 [degF] Dr. Mathew Cobian MD Work Phone: [facility] 11-05-2024 20:19-0400 Diastolic blood pressure 87 mm[Hg] Dr. Mathew Cobian MD Work Phone: [facility] 11-05-2024 20:19-0400 Heart rate 55 /min Dr. Mathew Cobian MD Work Phone: [phone] [place] [address] 11-05-2024 20:19-0400 Respiratory rate 18 /min Dr. Mathew Cobian MD Work Phone: [phone])[phone] [place] [address] 11-05-2024 20:19-0400 SaO2% (BldA) [Mass fraction] 97 % Dr. Mathew Cobian MD Work Phone: [facility] 11-05-2024 20:19-0400 Systolic blood pressure 125 mm[Hg] Dr. Mathew Cobian MD Work Phone: [facility] 11-05-2024 18:14-0400 Body height 165.[address] Mathew Cobian MD Work Phone: [facility] 11-05-2024 18:14-0400 Body mass index (BMI) [Ratio] 38.9 kg/m2 Dr. Mathew Cobian MD Work Phone: [facility] 11-05-2024 18:14-0400 Body weight 106.[address] Mathew Cobian MD Work Phone: [facility] 07-25-2024 10:46-0500 Diastolic blood pressure 84 mm[Hg] Mathew Cobian MD Work Phone: [facility] 07-25-2024 10:46-0500 Heart rate 64 /min Mathew Cobian MD Work Phone: [facility] 07-25-2024 10:46-0500 Respiratory rate 18 /min Mathew Cobian MD Work Phone: [facility] 07-25-2024 10:46-0500 Systolic blood pressure 132 mm[Hg] Mathew Cobian MD Work Phone: [facility] 07-22-2024 19:56-0500 Diastolic blood pressure 70 mm[Hg] Dr. Mathew Cobian MD Work Phone: [facility] 07-22-2024 19:56-0500 Heart rate 55 /min Dr. Mathew Cobian MD Work Phone: [facility] 07-22-2024 19:56-0500 Respiratory rate 16 /min Dr. Mathew Cobian MD Work Phone: [facility] 07-22-2024 19:56-0500 SaO2% (BldA) [Mass fraction] 98 % Dr. Mathew Cobian MD Work Phone: [facility] 07-22-2024 19:56-0500 Systolic blood pressure 122 mm[Hg] Dr. Mathew Cobian MD Work Phone: [facility] 07-22-2024 15:33-0500 Body temperature 98 [degF] Dr. Mathew Cobian MD Work Phone: [facility] 07-20-2024 17:20-0500 Diastolic Blood Pressure Non-Invasive 95 mm[Hg] KAE REICHFIELD DO [facility] 07-20-2024 17:20-0500 Heart rate 60 /min KAE REICHFIELD DO [facility] 07-20-2024 17:20-0500 Mean blood pressure 112 mm[Hg] KAE REICHFIELD DO [facility] 07-20-2024 17:20-0500 Respiratory rate 20 /min KAE REICHFIELD DO [facility] 07-20-2024 17:20-0500 Systolic Blood Pressure Non-Invasive 146 mm[Hg] KAE REICHFIELD DO [facility] 07-20-2024 14:33-0500 Body height 165.1 cm KAE REICHFIELD DO [facility] 07-20-2024 14:33-0500 Body temperature 98.06 [degF] KAE REICHFIELD DO [facility] 07-20-2024 14:33-0500 Body weight 100 kg KAE REICHFIELD DO [facility] 07-20-2024 14:33-0500 Diastolic Blood Pressure Non-Invasive 72 mm[Hg] KAE REICHFIELD DO [facility] 07-20-2024 14:33-0500 Heart rate 56 /min KAE REICHFIELD DO [facility] 07-20-2024 14:33-0500 Respiratory rate 20 /min KAE REICHFIELD DO [facility] 07-20-2024 14:33-0500 Systolic Blood Pressure Non-Invasive 127 mm[Hg] KAE REICHFIELD DO [facility] 07-12-2024 10:48-0500 Body mass index (BMI) [Ratio] 36.61 kg/m2 Brian Ahmadi APRN.REBRANDER Work Phone: [facility] 07-12-2024 10:48-0500 Body weight 99.79 kg Brian Ahmadi APRN.REBRANDER Work Phone: [facility] 07-12-2024 10:48-0500 Diastolic blood pressure 88 mm[Hg] Brian Ahmadi APRN.REBRANDER Work Phone: [facility] 07-12-2024 10:48-0500 Heart rate 67 /min Brian Daiana PHYSICIAN UNDERWRITER.REBRANDER Work Phone: [facility] 07-12-2024 10:48-0500 Respiratory rate 20 /min Brian Daiana PHYSICIAN UNDERWRITER.REBRANDER Work Phone: [facility] 07-12-2024 10:48-0500 SaO2% (BldA) [Mass fraction] 98 % Brian Daiana PHYSICIAN UNDERWRITER.REBRANDER Work Phone: [facility] 07-12-2024 10:48-0500 Systolic blood pressure 140 mm[Hg] Brian Daiana PHYSICIAN UNDERWRITER.REBRANDER Work Phone: [facility] 05-22-2024 11:38-0400 Diastolic blood pressure 72 mm[Hg] Jennifer Grayson PHYSICIAN UNDERWRITER.REBRANDER Work Phone: [facility] 05-22-2024 11:38-0400 Heart rate 68 /min Jennifer Grayson PHYSICIAN UNDERWRITER.REBRANDER Work Phone: [facility] 05-22-2024 11:38-0400 SaO2% (BldA) [Mass fraction] 97 % Jennifer Grayson PHYSICIAN UNDERWRITER.REBRANDER Work Phone: [facility] 05-22-2024 11:38-0400 Systolic blood pressure 111 mm[Hg] Jennifer Grayson PHYSICIAN UNDERWRITER.REBRANDER Work Phone: [facility] 05-17-2024 12:45-0400 Body mass index (BMI) [Ratio] 37.35 kg/m2 Prema Moomaw PHYSICIAN UNDERWRITER.REBRANDER Work Phone: [facility] 05-17-2024 12:45-0400 Body temperature 97.5 [degF] Prema Moomaw PHYSICIAN UNDERWRITER.REBRANDER Work Phone: [facility] 05-17-2024 12:45-0400 Body weight 101.8 kg Prema Moomaw PHYSICIAN UNDERWRITER.REBRANDER Work Phone: [facility] 05-17-2024 12:45-0400 Diastolic blood pressure 71 mm[Hg] Prema Moomaw PHYSICIAN UNDERWRITER.REBRANDER Work Phone: [facility] 05-17-2024 12:45-0400 Heart rate 54 /min Prema Moomaw PHYSICIAN UNDERWRITER.REBRANDER Work Phone: [facility] 05-17-2024 12:45-0400 Respiratory rate 20 /min Prema Moomaw PHYSICIAN UNDERWRITER.REBRANDER Work Phone: [facility] 05-17-2024 12:45-0400 SaO2% (BldA) [Mass fraction] 97 % Prema Moomaw PHYSICIAN UNDERWRITER.REBRANDER Work Phone: [facility] 05-17-2024 12:45-0400 Systolic blood pressure 110 mm[Hg] Prema Moomaw PHYSICIAN UNDERWRITER.REBRANDER Work Phone: [facility] 05-13-2024 10:45-0400 Diastolic blood pressure 59 mm[Hg] Gilson Finelli DO Work Phone: [facility] 05-13-2024 10:45-0400 Heart rate 41 /min Gilson Finelli DO Work Phone: [facility] 05-13-2024 10:45-0400 Respiratory rate 11 /min Gilson Finelli DO Work Phone: [facility] 05-13-2024 10:45-0400 SaO2% (BldA) [Mass fraction] 100 % Gilson Finelli DO Work Phone: [facility] 05-13-2024 10:45-0400 Systolic blood pressure 102 mm[Hg] Gilson Finelli DO Work Phone: [facility] 05-13-2024 09:36-0400 Body temperature 97.2 [degF] Gilson Finelli DO Work Phone: [facility] 05-08-2024 12:52-0400 Body mass index (BMI) [Ratio] 37.28 kg/m2 Gilson Finelli DO Work Phone: [facility] 05-08-2024 12:52-0400 Body weight 101.61 kg Gilson Finelli DO Work Phone: [facility] 05-08-2024 12:52-0400 Diastolic blood pressure 64 mm[Hg] Gilson Finelli DO Work Phone: [facility] 05-08-2024 12:52-0400 Heart rate 63 /min Gilson Finelli DO Work Phone: [facility] 05-08-2024 12:52-0400 SaO2% (BldA) [Mass fraction] 95 % Gilson Finelli DO Work Phone: [facility] 05-08-2024 12:52-0400 Systolic blood pressure 101 mm[Hg] Gilson Finelli DO Work Phone: [facility] 05-03-2024 10:34-0400 Body temperature 97.7 [degF] Brian Ahmadi PHYSICIAN UNDERWRITER.REBRANDER Work Phone: [facility] 05-03-2024 10:24-0400 Body mass index (BMI) [Ratio] 36.94 kg/m2 Brian Ahmadi PHYSICIAN UNDERWRITER.REBRANDER Work Phone: [facility] 05-03-2024 10:24-0400 Body weight 100.7 kg Brian Ahmadi PHYSICIAN UNDERWRITER.REBRANDER Work Phone: [facility] 05-03-2024 10:24-0400 Diastolic blood pressure 80 mm[Hg] Brian Ahmadi PHYSICIAN UNDERWRITER.REBRANDER Work Phone: [facility] 05-03-2024 10:24-0400 Heart rate 79 /min Brian Daiana PHYSICIAN UNDERWRITER.REBRANDER Work Phone: [facility] 05-03-2024 10:24-0400 Respiratory rate 20 /min Brian Ahmadi PHYSICIAN UNDERWRITER.REBRANDER Work Phone: [facility] 05-03-2024 10:24-0400 SaO2% (BldA) [Mass fraction] 98 % Brian Ahmadi PHYSICIAN UNDERWRITER.REBRANDER Work Phone: [facility] 05-03-2024 10:24-0400 Systolic blood pressure 120 mm[Hg] Brian Ahmadi PHYSICIAN UNDERWRITER.REBRANDER Work Phone: [facility] 04-30-2024 13:59-0400 Body temperature 97.7 [degF] Brian Ahmadi PHYSICIAN UNDERWRITER.REBRANDER Work Phone: [facility] 04-30-2024 13:17-0400 Body mass index (BMI) [Ratio] 37.77 kg/m2 Brian Ahmadi PHYSICIAN UNDERWRITER.REBRANDER Work Phone: [facility] 04-30-2024 13:17-0400 Body weight 102.97 kg Brian Ahmadi PHYSICIAN UNDERWRITER.REBRANDER Work Phone: [facility] 04-30-2024 13:17-0400 Diastolic blood pressure 76 mm[Hg] Brian Ahmadi PHYSICIAN UNDERWRITER.REBRANDER Work Phone: [facility] 04-30-2024 13:17-0400 Heart rate 64 /min Brian Ahmadi PHYSICIAN UNDERWRITER.REBRANDER Work Phone: [facility] 04-30-2024 13:17-0400 Respiratory rate 16 /min Brian Ahmadi PHYSICIAN UNDERWRITER.REBRANDER Work Phone: [facility] 04-30-2024 13:17-0400 SaO2% (BldA) [Mass fraction] 98 % Brian Ahmadi PHYSICIAN UNDERWRITER.REBRANDER Work Phone: [facility] 04-30-2024 13:17-0400 Systolic blood pressure 114 mm[Hg] Brian Maynardil PHYSICIAN UNDERWRITER.REBRANDER Work Phone: [facility] 04-17-2024 09:38-0400 Body mass index (BMI) [Ratio] 38.37 kg/m2 Gypsy Syed PHYSICIAN UNDERWRITER.REBRANDER Work Phone: [facility] 04-17-2024 09:38-0400 Body weight 104.6 kg Gypsy Syed PHYSICIAN UNDERWRITER.REBRANDER Work Phone: [facility] 04-17-2024 09:38-0400 Diastolic blood pressure 80 mm[Hg] Gypsy Tannhof PHYSICIAN UNDERWRITER.REBRANDER Work Phone: [facility] 04-17-2024 09:38-0400 Heart rate 68 /min Gypsy Meridahof PHYSICIAN UNDERWRITER.REBRANDER Work Phone: [facility] 04-17-2024 09:38-0400 Respiratory rate 16 /min Gypsy Tannhof PHYSICIAN UNDERWRITER.REBRANDER Work Phone: [facility] 04-17-2024 09:38-0400 SaO2% (BldA) [Mass fraction] 97 % Gypsy Meridahof PHYSICIAN UNDERWRITER.REBRANDER Work Phone: [facility] 04-17-2024 09:38-0400 Systolic blood pressure 122 mm[Hg] Gypsy Meridahof PHYSICIAN UNDERWRITER.REBRANDER Work Phone: [facility] 04-12-2024 10:22-0400 Body mass index (BMI) [Ratio] 38.11 kg/m2 Brian Ahmadi PHYSICIAN UNDERWRITER.REBRANDER Work Phone: [facility] 04-12-2024 10:22-0400 Body weight 103.87 kg Brian Ahmadi PHYSICIAN UNDERWRITER.REBRANDER Work Phone: [facility] 04-12-2024 10:22-0400 Diastolic blood pressure 70 mm[Hg] Brian Daiana PHYSICIAN UNDERWRITER.REBRANDER Work Phone: [facility] 04-12-2024 10:22-0400 Heart rate 61 /min Brian Daiana PHYSICIAN UNDERWRITER.REBRANDER Work Phone: [facility] 04-12-2024 10:22-0400 Respiratory rate 16 /min Brian Daiana PHYSICIAN UNDERWRITER.REBRANDER Work Phone: [facility] 04-12-2024 10:22-0400 SaO2% (BldA) [Mass fraction] 98 % Brian Ahmadi PHYSICIAN UNDERWRITER.REBRANDER Work Phone: [facility] 04-12-2024 10:22-0400 Systolic blood pressure 112 mm[Hg] Brian Daiana PHYSICIAN UNDERWRITER.REBRANDER Work Phone: [facility] 03-15-2024 10:23-0400 Diastolic blood pressure 68 mm[Hg] Brian Ahmadi PHYSICIAN UNDERWRITER.REBRANDER Work Phone: [facility] 03-15-2024 10:23-0400 Heart rate 62 /min Brian Ahmadi PHYSICIAN UNDERWRITER.REBRANDER Work Phone: [facility] 03-15-2024 10:23-0400 Respiratory rate 16 /min Brian Ahmadi PHYSICIAN UNDERWRITER.REBRANDER Work Phone: [facility] 03-15-2024 10:23-0400 SaO2% (BldA) [Mass fraction] 95 % Brian Ahmadi PHYSICIAN UNDERWRITER.REBRANDER Work Phone: [facility] 03-15-2024 10:23-0400 Systolic blood pressure 124 mm[Hg] Brian Ahmadi PHYSICIAN UNDERWRITER.REBRANDER Work Phone: [facility] 03-12-2024 11:20-0400 Body height 165.1 cm Raphael Calderon Jr., MD Work Phone: [facility] 03-12-2024 11:20-0400 Body mass index (BMI) [Ratio] 38.11 kg/m2 Raphael Calderon Jr., MD Work Phone: [facility] 03-12-2024 11:20-0400 Body weight 103.87 kg Raphael Calderon Jr., MD Work Phone: [facility] 02-17-2024 11:53-0400 Body mass index (BMI) [Ratio] 38.7 kg/m2 Abbe Adame APRN.REBRANDER Work Phone: [facility] 02-17-2024 11:53-0400 Body temperature 96.91 [degF] Abbe Adame APRN.REBRANDER Work Phone: [facility] 02-17-2024 11:53-0400 Body weight 105.5 kg Abbe Adame APRN.REBRANDER Work Phone: [facility] 02-17-2024 11:53-0400 Diastolic blood pressure 74 mm[Hg] Abbe Adame PHYSICIAN UNDERWRITER.REBRANDER Work Phone: [facility] 02-17-2024 11:53-0400 Heart rate 75 /min Abbe Adame PHYSICIAN UNDERWRITER.REBRANDER Work Phone: [facility] 02-17-2024 11:53-0400 Respiratory rate 21 /min Abbe Adame PHYSICIAN UNDERWRITER.REBRANDER Work Phone: [facility] 02-17-2024 11:53-0400 SaO2% (BldA) [Mass fraction] 98 % Abbe Adame PHYSICIAN UNDERWRITER.REBRANDER Work Phone: [facility] 02-17-2024 11:53-0400 Systolic blood pressure 120 mm[Hg] Abbe Adame PHYSICIAN UNDERWRITER.REBRANDER Work Phone: [facility] 12-14-2023 10:58-0400 Body mass index (BMI) [Ratio] 37.81 kg/m2 Gypsy Syed PHYSICIAN UNDERWRITER.REBRANDER Work Phone: [facility] 12-14-2023 10:58-0400 Body weight 103.06 kg Gypsy Syed PHYSICIAN UNDERWRITER.REBRANDER Work Phone: [facility] 12-14-2023 10:58-0400 Diastolic blood pressure 70 mm[Hg] Gypsy Meridahof PHYSICIAN UNDERWRITER.REBRANDER Work Phone: [facility] 12-14-2023 10:58-0400 Heart rate 63 /min Gypsy Meridahof PHYSICIAN UNDERWRITER.REBRANDER Work Phone: [facility] 12-14-2023 10:58-0400 Respiratory rate 16 /min Gypsy Meridahof PHYSICIAN UNDERWRITER.REBRANDER Work Phone: [facility] 12-14-2023 10:58-0400 SaO2% (BldA) [Mass fraction] 97 % Gypsy Meridahoabilio PHYSICIAN UNDERWRITER.REBRANDER Work Phone: [facility] 12-14-2023 10:58-0400 Systolic blood pressure 118 mm[Hg] Gypsy Meridahof PHYSICIAN UNDERWRITER.REBRANDER Work Phone: [facility] 11-01-2023 14:16-0400 Body temperature 97.39 [degF] Barbara Quarles PHYSICIAN UNDERWRITER.REBRANDER Work Phone: [facility] 11-01-2023 14:16-0400 Body weight 101.1 kg Barbara Quarles PHYSICIAN UNDERWRITER.REBRANDER Work Phone: [facility] 11-01-2023 14:16-0400 Diastolic blood pressure 70 mm[Hg] Barbara Quarles PHYSICIAN UNDERWRITER.REBRANDER Work Phone: [facility] 11-01-2023 14:16-0400 Heart rate 78 /min Barbara Quarles PHYSICIAN UNDERWRITER.REBRANDER Work Phone: [facility] 11-01-2023 14:16-0400 Respiratory rate 21 /min Barbara Quarles PHYSICIAN UNDERWRITER.REBRANDER Work Phone: [facility] 11-01-2023 14:16-0400 SaO2% (BldA) [Mass fraction] 98 % Barbara Quarles PHYSICIAN UNDERWRITER.REBRANDER Work Phone: [facility] 11-01-2023 14:16-0400 Systolic blood pressure 120 mm[Hg] Barbara Quarles PHYSICIAN UNDERWRITER.REBRANDER Work Phone: [facility] 10-17-2023 10:08-0400 Body weight 102.97 kg Mathew Cobian MD Work Phone: [facility] 10-17-2023 10:08-0400 Diastolic blood pressure 72 mm[Hg] Mathew Cobian MD Work Phone: [facility] 10-17-2023 10:08-0400 Heart rate 86 /min Mathew Cobian MD Work Phone: [facility] 10-17-2023 10:08-0400 Respiratory rate 16 /min Mathew Cobian MD Work Phone: [facility] 10-17-2023 10:08-0400 SaO2% (BldA) [Mass fraction] 98 % Mathew Cobian MD Work Phone: [facility] 10-17-2023 10:08-0400 Systolic blood pressure 120 mm[Hg] Mathew Cobian MD Work Phone: [facility] 09-29-2023 11:50-0500 Body temperature 98.4 [degF] Evan Burnham MD Work Phone: [facility] 09-29-2023 11:50-0500 Diastolic blood pressure 64 mm[Hg] Evan Burnham MD Work Phone: [facility] 09-29-2023 11:50-0500 Heart rate 56 /min Evan Burnham MD Work Phone: [facility] 09-29-2023 11:50-0500 Respiratory rate 20 /min Evan Burnham MD Work Phone: [facility] 09-29-2023 11:50-0500 SaO2% (BldA) [Mass fraction] 94 % Evan Burnham MD Work Phone: [facility] 09-29-2023 11:50-0500 Systolic blood pressure 131 mm[Hg] Evan Burnham MD Work Phone: [facility] 09-27-2023 02:14-0500 Body height 165.1 cm Evan Burnham MD Work Phone: [facility] 09-27-2023 02:14-0500 Body mass index (BMI) [Ratio] 35.78 kg/m2 Evan Burnham MD Work Phone: [facility] 09-27-2023 02:14-0500 Body weight 97.52 kg Evan Burnham MD Work Phone: [facility] 09-14-2023 12:20-0500 Body weight 100.25 kg Gypsy Syed APRN.REBRANDER Work Phone: [facility] 09-14-2023 12:20-0500 Diastolic blood pressure 68 mm[Hg] Gypsy Tannhof PHYSICIAN UNDERWRITER.REBRANDER Work Phone: [facility] 09-14-2023 12:20-0500 Heart rate 64 /min Gypsy Syed PHYSICIAN UNDERWRITER.REBRANDER Work Phone: [facility] 09-14-2023 12:20-0500 Respiratory rate 16 /min Gypsy Meridahoabilio PHYSICIAN UNDERWRITER.REBRANDER Work Phone: [facility] 09-14-2023 12:20-0500 SaO2% (BldA) [Mass fraction] 97 % Gypsy Meridahof PHYSICIAN UNDERWRITER.REBRANDER Work Phone: [facility] 09-14-2023 12:20-0500 Systolic blood pressure 112 mm[Hg] Gypsy Meridahoabilio PHYSICIAN UNDERWRITER.REBRANDER Work Phone: [facility] 04-12-2023 19:25-0400 Body temperature 99.3 [degF] Abbe Adame APRN.REBRANDER Work Phone: [facility] 04-12-2023 19:25-0400 Body weight 105.51 kg Abbe Adame APRN.REBRANDER Work Phone: [facility] 04-12-2023 19:25-0400 Diastolic blood pressure 72 mm[Hg] Abbe Adame APRN.REBRANDER Work Phone: [facility] 04-12-2023 19:25-0400 Heart rate 85 /min Abbe Adame APRN.REBRANDER Work Phone: [facility] 04-12-2023 19:25-0400 Respiratory rate 21 /min Abbe Adame APRN.REBRANDER Work Phone: [facility] 04-12-2023 19:25-0400 SaO2% (BldA) [Mass fraction] 98 % Abbe Adame APRN.REBRANDER Work Phone: [facility] 04-12-2023 19:25-0400 Systolic blood pressure 114 mm[Hg] Abbe Adame APRN.REBRANDER Work Phone: [facility] 12-20-2022 10:16-0400 Body weight 100.61 kg Brian Daiana PHYSICIAN UNDERWRITER.REBRANDER Work Phone: [facility] 12-20-2022 10:16-0400 Diastolic blood pressure 82 mm[Hg] Brian Ahmadi PHYSICIAN UNDERWRITER.REBRANDER Work Phone: [facility] 12-20-2022 10:16-0400 Heart rate 61 /min Brian Ahmadi PHYSICIAN UNDERWRITER.REBRANDER Work Phone: [facility] 12-20-2022 10:16-0400 Respiratory rate 16 /min Brian Ahmadi PHYSICIAN UNDERWRITER.REBRANDER Work Phone: [facility] 12-20-2022 10:16-0400 SaO2% (BldA) [Mass fraction] 96 % Brian Ahmadi PHYSICIAN UNDERWRITER.REBRANDER Work Phone: [facility] 12-20-2022 10:16-0400 Systolic blood pressure 128 mm[Hg] Brian Ahmadi PHYSICIAN UNDERWRITER.REBRANDER Work Phone: [facility] 06-07-2022 14:36-0500 Body weight 97.8 kg Mathew Cobian MD Work Phone: [facility] 06-07-2022 14:36-0500 Diastolic blood pressure 76 mm[Hg] Mathew Cobian MD Work Phone: [facility] 06-07-2022 14:36-0500 Heart rate 72 /min Mathew Cobian MD Work Phone: [facility] 06-07-2022 14:36-0500 Respiratory rate 16 /min Mathew Cobian MD Work Phone: [facility] 06-07-2022 14:36-0500 Systolic blood pressure 124 mm[Hg] Mathew Cobian MD Work Phone: [facility] 02-27-2022 12:26-0400 Body height 165.[address] [facility] Work Phone: 02-27-2022 12:26-0400 Body mass index (BMI) [Ratio] 35.7 kg/m2 [facility] Work Phone: 02-27-2022 12:26-0400 Body temperature 98.7 [degF] [facility] Work Phone: 02-27-2022 12:26-0400 Body weight 97.[address] [facility] Work Phone: 02-27-2022 12:26-0400 Diastolic blood pressure 81 mm[Hg] [facility] Work Phone: 02-27-2022 12:26-0400 Heart rate 82 /min [facility] Work Phone: 02-27-2022 12:26-0400 Respiratory rate 18 /min [facility] Work Phone: 02-27-2022 12:26-0400 SaO2% (BldA) [Mass fraction] 98 % [facility] Work Phone: 02-27-2022 12:26-0400 Systolic blood pressure 148 mm[Hg] [facility] Work Phone: 01-14-2022 11:08-0400 Body temperature 97.39 [degF] Hardik Masci DO Work Phone: [facility] 01-14-2022 11:08-0400 Body weight 101.15 kg Hardik Masci DO Work Phone: [facility] 01-14-2022 11:08-0400 Diastolic blood pressure 76 mm[Hg] Hardik Masci DO Work Phone: [facility] 01-14-2022 11:08-0400 Heart rate 68 /min Hardik Masci DO Work Phone: [facility] 01-14-2022 11:08-0400 Systolic blood pressure 124 mm[Hg] Hardik Masci DO Work Phone: [facility] Encounters Encounter Date Encounter Type Care Provider Facility Start: 01-17-2025 End: 01-17-2025 ambulatory Mathew Cobian MD Work Phone: [facility] [place] Comment on above: Rectal Problem Start: 01-17-2025 End: 01-17-2025 Patient encounter procedure Ino Esqueda APRN.REBRANDER Work Phone: [facility] [place] Comment on above: Blood in stool (Prim kamille Dx); Diverticulitis; Fatigue, unspecified type; Low energy; Chronic bilateral low back pain with right-sided sciatica Start: 01-14-2025 End: 01-14-2025 Patient encounter procedure Ino Esqueda APRN.REBRANDER Work Phone: [facility] [place] Comment on above: Diverticulitis (Prim kamille Dx); Skin tags, multiple acquired Start: 01-14-2025 End: 01-14-2025 ambulatory Yuko Erazo RN NURSE ACOUSTIC INTELLIGENCE SPECIALIST Comment on above: Medication Question Start: 01-10-2025 End: 01-10-2025 Telephone encounter Mathew Cobian MD Work Phone: [facility] [place] Comment on above: Medication Problem Start: 12-25-2024 End: 12-25-2024 Patient encounter procedure Greyson Ellsworth APRN.REBRANDER Work Phone: [facility] Comment on above: Sore throat (Primary Dx); Viral illness; Seasonal allergic rhinitis, unspecified trigger Start: 12-25-2024 End: 12-25-2024 ambulatory Mathew Cobian MD Work Phone: [facility] [place] Comment on above: Sore Throat Start: 12-13-2024 End: 12-13-2024 ambulatory MATHEW COBIAN Facility:[facility] Start: 11-05-2024 End: 11-05-2024 Emergency department patient visit Dr. Mathew Cobian MD Work Phone: -Emergency Department Work Phone: Start: 10-31-2024 End: 11-01-2024 Follow-up encounter [facility] Comment on above: Results Start: 10-28-2024 ambulatory RAPHAEL CALDERON JR Facility:[facility] Start: 10-28-2024 End: 10-28-2024 Subsequent hospital visit by physician Mri [facility] (I-Stat/Lg Bore/3t) [facility] Comment on above: Prostate cancer (HCC ) [C61] Start: 09-10-2024 End: 09-10-2024 Telephone encounter Raphael Calderon MD Work Phone: Urology Comment on above: Appointment Start: 08-26-2024 End: 08-26-2024 ambulatory MATHEW COBIAN Facility:[facility] Start: 08-26-2024 End: 08-26-2024 Patient encounter procedure Tammie Vetovitz PA-C Work Phone: Orthopaedics Comment on above: Other closed fractur e of proximal end of right fibula with routine healing, subsequent encounter (Primary Dx) Start: 08-26-2024 End: 08-26-2024 Subsequent hospital visit by physician Cris lou Phillips Work Phone: Radiology Start: 08-20-2024 End: 08-20-2024 Orders Only Tammie Vetovitz PA-C Work Phone: Orthopaedics Comment on above: Other closed fractur e of proximal end of right fibula, initial encounter (Primary Dx) Start: 08-06-2024 End: 08-06-2024 Refill Mathew Cobian MD Work Phone: [facility] Comment on above: Refill Request Start: 07-29-2024 End: 07-29-2024 Subsequent hospital visit by physician Cris Phillips Work Phone: Radiology Comment on above: Other closed fractur e of proximal end of right fibula, initial encounter [S82.831A] Start: 07-29-2024 End: 07-29-2024 Patient encounter procedure Tammie Vetovitz PA-C Work Phone: Orthopaedics Comment on above: Other closed fractur e of proximal end of right fibula, initial encounter (Primary Dx) Start: 07-29-2024 End: 08-01-2024 ambulatory Emma Turner PA-C Work Phone: Pulmonary Medicine Start: 07-25-2024 End: 07-25-2024 ambulatory MATHEW COBIAN Facility:[facility] Start: 07-25-2024 End: 07-25-2024 Patient encounter procedure Mathew Cobian MD Work Phone: [facility] [place] Comment on above: Hospital discharge f ollow-up (Primary Dx); Closed fracture of proximal end of right fibula, unspecified fracture morphology, sequela; Prostate cancer (HCC) Start: 07-23-2024 End: 07-23-2024 Telephone encounter Mathew Cobian MD Work Phone: [facility] [place] Comment on above: [facility] ER f/u Start: 07-22-2024 End: 07-22-2024 Emergency department patient visit Dr. Franklyn Donaldson DO -Emergency Department Work Phone: Start: 07-20-2024 End: 07-20-2024 Emergency department patient visit KAE BARBER DO [facility] Start: 07-18-2024 End: 07-23-2024 Telephone encounter Brian Ahmadi APRN.CNP Work Phone: [facility] [place] Comment on above: Results Start: 07-12-2024 End: 07-12-2024 ambulatory MATHEW COBIAN Facility:[facility] Start: 07-12-2024 End: 07-12-2024 Office outpatient visit 25 minutes Brian Ahmadi APRN.REBRANDER Work Phone: [facility] [place] Comment on above: Hypothyroidism, unsp ecified type (Primary Dx); Recurrent major depressive disorder, remission status unspecified (HCC); Anxiety; Confusion Start: 06-12-2024 End: 06-13-2024 Telephone encounter Mathew Cobian MD Work Phone: [facility] [place] Comment on above: Forms Start: 06-10-2024 End: 06-27-2024 Telephone encounter Mathew Cobian MD Work Phone: [facility] [place] Comment on above: Forms (Apt modificat ion form) Start: 06-07-2024 End: 06-07-2024 ambulatory Calixto Chandler RN NURSE ACOUSTIC INTELLIGENCE SPECIALIST Start: 06-07-2024 End: 06-07-2024 Patient encounter procedure Calixto Percic RN NURSE ACOUSTIC INTELLIGENCE SPECIALIST Comment on above: Referral Request Start: 06-07-2024 End: 06-09-2024 Telephone encounter [facility] [place] Start: 06-03-2024 End: 06-03-2024 Telemedicine consultation with patient Devi iCsse MD Work Phone: Neurology Start: 06-03-2024 End: 06-03-2024 ambulatory Devi Cisse MD Work Phone: Neurology Comment on above: Confusion (Primary D x) Start: 06-03-2024 End: 06-03-2024 Telephone encounter Devi Cisse MD Work Phone: Pain Management Comment on above: Appointment Start: 05-22-2024 End: 05-22-2024 ambulatory MATHEW COBIAN Facility:[facility] Start: 05-22-2024 End: 05-22-2024 Patient encounter procedure Jennifer Mcghee PHYSICIAN UNDERWRITER.REBRANDER Work Phone: General Surgery Comment on above: History of colonic p olyps (Primary Dx) Start: 05-17-2024 End: 05-17-2024 ambulatory MATHEW COBIAN Facility:[facility] Start: 05-17-2024 End: 05-17-2024 Patient encounter procedure Prema Alirezabossman PHYSICIAN UNDERWRITER.REBRANDER Work Phone: [facility] Comment on above: Abrasion of lower le g, unspecified laterality, initial encounter (Primary Dx) Start: 05-16-2024 End: 05-16-2024 Telephone encounter Mathew Cobian MD Work Phone: [facility] [place] Comment on above: Letter Start: 05-14-2024 End: 05-14-2024 Patient Outreach Sp San RN Work Phone: [facility] Comment on above: Transition Of Care ( TCM Initial Hospital Discharge /[place] 05/13/24) Initial phone contact for Transitional Care Management Start: 05-13-2024 ambulatory MATHEW COBIAN Facil ity:[facility] Start: 05-13-2024 End: 05-13-2024 Subsequent hospital visit by physician Gilson Bar DO Work Phone: [facility] Comment on above: Diverticulitis [K57. 92] Start: 05-12-2024 End: 05-13-2024 ambulatory GILSON BAR Facility:[facility] Start: 05-08-2024 End: 05-08-2024 ambulatory [facility] Facility:[facility] Start: 05-08-2024 End: 05-08-2024 Office consultation new/estab patient 30 min Gilson Bar DO Work Phone: General Surgery Comment on above: Blood in stool (Prim kamille Dx); Diverticulitis; Bloody stools Start: 05-03-2024 End: 05-03-2024 Office outpatient visit 15 minutes Brian Daiana PHYSICIAN UNDERWRITER.REBRANDER Work Phone: [facility] [place] Comment on above: Diverticulitis (Prim kamille Dx); Bloody stools Start: 05-03-2024 End: 05-03-2024 ambulatory [facility] Facility:[facility] Start: 05-01-2024 End: 05-02-2024 ambulatory Raphael Calderon MD Work Phone: Urology Comment on above: Prostate Start: 04-30-2024 End: 04-30-2024 Office outpatient visit 25 minutes Brian Daiana PHYSICIAN UNDERWRITER.REBRANDER Work Phone: [facility] [place] Comment on above: Diverticulitis (Prim kamille Dx); Bloody stools; Encounter for immunization Start: 04-30-2024 End: 04-30-2024 ambulatory [facility] Facility:[facility] Start: 04-24-2024 End: 04-25-2024 Refill Mathew Cobian MD Work Phone: [facility] [place] Comment on above: Refill Request Start: 04-23-2024 End: 04-23-2024 Emergency department patient visit Mathew Cobian Facility:[facility] Start: 04-23-2024 End: 04-23-2024 ambulatory Mathew Cobian MD Work Phone: [facility] [place] Comment on above: Rectal Bleeding Start: 04-17-2024 End: 04-17-2024 Patient encounter procedure Gypsy Syed APRN.CNP Work Phone: [facility] Comment on above: Hypothyroidism, unsp ecified type (Primary Dx); Memory loss; Neck mass Start: 04-17-2024 End: 04-17-2024 ambulatory [facility] Facility:[facility] Start: 04-14-2024 End: 04-14-2024 ambulatory Brian Ahmadi APRN.REBRANDER Work Phone: [facility] Comment on above: TSH Start: 04-14-2024 End: 04-14-2024 E-mail encounter from caregiver Brian Ahmadi APRN.CNP Work Phone: [facility] [place] Start: 04-12-2024 End: 04-12-2024 ambulatory [facility] Facility:[facility] Start: 04-12-2024 End: 04-12-2024 Office outpatient visit 15 minutes Brian Ahmadi APRN.REBRANDER Work Phone: [facility] Comment on above: Recurrent major depr essive disorder, remission status unspecified (HCC) (Primary Dx); MANNY (generalized anxiety disorder); Hypothyroidism, unspecified type Start: 04-04-2024 End: 04-04-2024 Telephone encounter Mathew Cobian MD Work Phone: [facility] [place] Comment on above: Consult Start: 03-15-2024 End: 03-15-2024 Telephone encounter Brian Ahmadi APRN.REBRANDER Work Phone: [facility] Comment on above: Patient Question Start: 03-15-2024 End: 03-15-2024 Office outpatient visit 25 minutes Brian Ahmadi APRN.REBRANDER Work Phone: [facility] Comment on above: Hypothyroidism, unsp ecified type (Primary Dx); Recurrent major depressive disorder, remission status unspecified (HCC); MANNY (generalized anxiety disorder); Memory loss Start: 03-15-2024 End: 03-15-2024 ambulatory [facility] Facility:[facility] Start: 03-13-2024 End: 03-13-2024 Telephone encounter Brian Ahmadi APRN.REBRANDER Work Phone: [facility] [place] Comment on above: Results Start: 03-12-2024 End: 03-12-2024 ambulatory [facility] Facility:[facility] Start: 03-12-2024 End: 03-12-2024 Patient encounter procedure Raphael Calderon MD Work Phone: Urology Comment on above: Prostate cancer (HCC ) Start: 03-12-2024 End: 03-12-2024 ambulatory [facility] Facility:[facility] Start: 02-27-2024 Telephone encounter Mathew flores MD Work Phone: [facility] [place] Comment on above: Appointment; Patient Question Start: 02-17-2024 End: 02-17-[address] [facility] Facility:[facility] Start: 02-17-2024 End: 02-17-2024 Patient encounter procedure Abbe Adame APRN.REBRANDER Work Phone: [place] [facility] Comment on above: Rash (Primary Dx) Start: 01-29-2024 Refill Brian DUMONT RN.REBRANDER Work Phone: [facility] [place] Comment on above: Refill Request Start: 12-20-2023 Telephone encounter Gypsy arreola PHYSICIAN UNDERWRITER.REBRANDER Work Phone: [facility] [place] Comment on above: Results (Labs ) Start: 12-14-2023 End: 12-14-2023 Patient encounter procedure Gypsy Syed APRN.REBRANDER Work Phone: [facility] [place] Comment on above: Irritability (Primar y Dx); Anxiety; Memory changes; Hypothyroidism, unspecified type; Sensation of fullness in both ears; Cerebral palsy, unspecified type (HCC); Alcohol use Start: 12-07-2023 Refill Gypsy Syed APRN.REBRANDER Work Phone: [facility] [place] Comment on above: Med Change Request Start: 12-06-2023 ambulatory Ava Dunn RN NURSE O N CALL Comment on above: Medication Problem Start: 12-06-2023 Telephone encounter Gypsy arreola PHYSICIAN UNDERWRITER.REBRANDER Work Phone: [facility] [place] Comment on above: Medication Problem Start: 11-03-2023 Telephone encounter Carolyn Tavera PHYSICIAN UNDERWRITER.REBRANDER Work Phone: [facility] [facility] Start: 11-02-2023 Refill Gypsy Syed PHYSICIAN UNDERWRITER.REBRANDER Work Phone: [facility] [place] Comment on above: Med Change Request Start: 11-01-2023 End: 11-01-2023 Subsequent hospital visit by physician [facility] Comment on above: Pain in right testic le [N50.811] Start: 11-01-2023 End: 11-01-2023 Patient encounter procedure Barbara Quarles PHYSICIAN UNDERWRITER.REBRANDER Work Phone: [facility] Comment on above: Pain in right testic le (Primary Dx); Right groin pain Start: 10-26-2023 Telephone encounter Mathew flores MD Work Phone: [facility] Comment on above: Handicap placard Start: 10-17-2023 End: 10-17-2023 Patient encounter procedure Mathew Cobian MD Work Phone: [facility] Comment on above: Hospital discharge f ollow-up (Primary Dx); Screening for colon cancer; Chronic bilateral low back pain with right-sided sciatica; Dizziness; Cerebral palsy, unspecified type (HCC); Recurrent major depressive disorder, remission status unspecified (HCC); Prostate cancer (HCC) Start: 10-16-2023 Telephone encounter Mathew flores MD Work Phone: [facility] Comment on above: Patient Update Start: 10-11-2023 Telephone encounter Cameron de los santos MD Work Phone: [facility] Comment on above: New Patient (Develop mental venous anomaly 09/26/23 ED admission) Start: 10-02-2023 Telephone encounter Mathew flores MD Work Phone: [facility] Comment on above: Patient Update; FYI- No Action Needed Start: 09-29-2023 End: 09-29-2023 ambulatory [facility] Facility:[facility] Start: 09-27-2023 Telephone encounter Mathew flores MD Work Phone: [facility] [place] Comment on above: Patient Update Start: 09-26-2023 End: 09-29-2023 Evaluation and management of inpatient AISHA STOREY Facility:[facility] Start: 09-26-2023 End: 09-29-2023 Evaluation and management of inpatient Evan Burnham MD Work Phone: [facility] Comment on above: Developmental venous anomaly Start: 09-15-2023 Telephone encounter Gypsy arreola PHYSICIAN UNDERWRITER.REBRANDER Work Phone: Family [facility] [place] Comment on above: Results (Labs ); Ord ers Start: 09-14-2023 End: 09-14-2023 Patient encounter procedure Gypsy Syed PHYSICIAN UNDERWRITER.REBRANDER Work Phone: Family [facility] [place] Comment on above: JODEE (obstructive sle ep apnea) (Primary Dx); Bilateral impacted cerumen; Brain fog; Hypothyroidism, unspecified type; Vitamin D deficiency Start: 09-12-2023 End: 09-12-2023 ambulatory [facility] Facility:[facility] Start: 08-25-2023 Telephone encounter Mathew flores MD Work Phone: [facility] [place] Comment on above: Forms ([employer]) Start: 08-17-2023 Telephone encounter Mathew flores MD Work Phone: [facility] [place] Comment on above: Forms Start: 07-31-2023 End: 07-31-2023 Subsequent hospital visit by physician [facility] [place] Work Phone: Radiology Comment on above: Subacute cough [R05. 2] Start: 06-14-2023 Refill Brian DUMONT RN.REBRANDER Work Phone: [facility] [place] Comment on above: Refill Request Start: 04-17-2023 Telephone encounter Mathew flores MD Work Phone: [facility] [place] Comment on above: FYI-No Action Needed (Dr. Conklin's office will not see pt) Start: 04-14-2023 Telephone encounter Abbe Adame APRN.REBRANDER Work Phone: [facility] Comment on above: Results Start: 04-12-2023 End: 04-12-2023 Patient encounter procedure Abbe Adame APRN.REBRANDER Work Phone: [facility] Comment on above: Urinary frequency (P rimary Dx); Prostatitis, acute Start: 04-12-2023 Telephone encounter Mathew flores MD Work Phone: [facility] Comment on above: UTI s/s Start: 03-29-2023 ambulatory No Pcp PHYSICIAN UNDERWRITER [employer] Start: 03-16-2023 Telephone encounter Mathew flores MD Work Phone: [facility] Comment on above: Referral Request Start: 03-16-2023 End: 03-16-2023 ambulatory [facility] Work Phone: Start: 03-16-2023 End: 03-16-2023 Discharged Recurring [facility]-Physical Therapy Work Phone: Start: 01-11-2023 Telephone encounter Mathew flores MD Work Phone: [facility] Comment on above: Letter; Forms Start: 12-21-2022 Telephone encounter Mathew flores MD Work Phone: [facility] Comment on above: Letter Start: 12-20-2022 End: 12-20-2022 Office outpatient visit 25 minutes Brian Ahmadi APRN.REBRANDER Work Phone: [facility] Comment on above: Cerebral palsy, unsp ecified type (HCC) (Primary Dx); Congenital diplegia (HCC); Hypothyroidism, unspecified type; GERD without esophagitis; Anxiety; JODEE (obstructive sleep apnea); Prostate cancer (HCC); Vitamin D deficiency; Recurrent major depressive disorder, remission status unspecified (HCC) Start: 11-24-2022 Telephone encounter Mathew flores MD Work Phone: [facility] [place] Comment on above: Forms ([employer] re: JODEE supplies) Start: 11-14-2022 Telephone encounter Mathew flores MD Work Phone: [facility] [place] Comment on above: Lab Orders Start: 09-16-2022 Telephone encounter Hardik quintanilla DO Work Phone: Hematology/Oncology Comment on above: Refill Request Start: 07-22-2022 Refill Mathew manuel MD Work Phone: [facility] [place] Comment on above: Refill Request Start: 06-10-2022 Telephone encounter Mathew flores MD Work Phone: [facility] [place] Comment on above: Results Start: 06-07-2022 End: 06-07-2022 Patient encounter procedure Mathew Cobian MD Work Phone: [facility] [place] Comment on above: Cerebral palsy, unsp ecified type (HCC) (Primary Dx); Spinal stenosis of lumbar region without neurogenic claudication; Anxiety; GERD without esophagitis; JODEE (obstructive sleep apnea); Hypothyroidism, unspecified type; Neoplasm of prostate; Vitamin D deficiency; Hair loss; HLA B27 (HLA B27 positive) Start: 04-20-2022 Telephone encounter Hardik quintanilla DO Work Phone: Hematology/Oncology Comment on above: Patient Question Start: 04-19-2022 End: 04-19-2022 ambulatory Helder Sibley DO Work Phone: [facility] Comment on above: Malignant neoplasm o f prostate (HCC) (Primary Dx) Start: 04-19-2022 End: 04-19-2022 Telemedicine consultation with patient Helder Sibley DO Work Phone: [employer] Start: 03-03-2022 Refill Hardik Joseph Work Phone: Hematology/Oncology Comment on above: Refill Request Start: 03-02-2022 Patient Outreach Mathew mensah MD Work Phone: [facility] [place] Comment on above: Transition Of Care Start: 02-27-2022 End: 02-27-2022 [facility] Start: 02-17-2022 Telephone encounter Robert lowe MD Work Phone: Neurology Comment on above: Patient Update (verb le order for pt ) Start: 01-15-2022 Telephone encounter Hardik Snow socorro DO Work Phone: Hematology/Oncology Comment on above: Results (Pelvic x-ra y) Start: 01-14-2022 End: 01-14-2022 ambulatory Hardik Spain DO Work Phone: Hematology/Oncology Comment on above: Abnormal x-ray of pe lvis (Primary Dx) Start: 01-14-2022 End: 01-14-2022 Patient encounter procedure Hardik Spain DO Work Phone: [facility] Start: 01-14-2022 End: 01-14-2022 Subsequent hospital visit by physician [facility] Work Phone: Radiology Comment on above: Abnormal x-ray of pe lvis [R93.7] Start: 12-23-2021 ambulatory Mathew manuel MD Work Phone: [facility] Comment on above: CPAP Start: 12-22-2021 Telephone encounter Robert lowe MD Work Phone: Neurology Comment on above: Patient Update (home health ) Start: 12-13-2021 Refill Brian DUMONT RN.REBRANDER Work Phone: [facility] Comment on above: Refill Request Start: 12-11-2021 ambulatory Merlyn Rutherford RN [facility] ACOUSTIC INTELLIGENCE SPECIALIST Comment on above: Blood Pressure Start: 11-26-2021 Refill Mathew manuel MD Work Phone: [facility] Comment on above: Refill Request Start: 10-27-2021 Telephone encounter Robert lowe MD Work Phone: [facility] Comment on above: HHC and POC Start: 08-26-2021 End: 08-26-2021 Subsequent hospital visit by physician [facility] (I-Stat/1.5t) Work Phone: Radiology Comment on above: Canceled (Pt cx: Wea ther) Start: 03-18-2021 End: 03-18-2021 Subsequent hospital visit by physician Xr [facility] Work Phone: Radiology Comment on above: Pain [R52] Procedures Date Procedure Procedure Detail Performing Clinician Start: 12-25-2024 Iadna streptococcus group a amplified probe tq Ronald Cat PHYSICIAN UNDERWRITER.REBRANDER Work Phone: Start: 07-22-2024 MRI of lower extremity Dr. Mathew Cobian MD Work Phone: Start: 07-22-2024 Plain X-ray of tibia and fibula Dr. Mathew Cobian MD Work Phone: Start: 05-13-2024 Colonoscopy flx dx w /collj spec when pfrmd Gilson C Finelli DO Work Phone: Start: 05-13-2024 Colonoscopy Gilson Fi devika DO Work Phone: Start: 04-30-2024 PFIZER-BIONTECH COVI D-19 VACCINE AGE 12+ YR (COMIRNATY) Brian Ahmadi PHYSICIAN UNDERWRITER.REBRANDER Work Phone: Start: 11-01-2023 Dup-scan artl flora abdl/pel/scrot&/rpr orgn com Barbara Quarles PHYSICIAN UNDERWRITER.REBRANDER Work Phone: Start: 11-01-2023 Us scrotum & contents J natalya Quarles PHYSICIAN UNDERWRITER.REBRANDER Work Phone: Start: 11-01-2023 Urnls dip stick/tabl et rgnt auto w/o microscopy [facility] Provider Start: 09-28-2023 Glucose measurement, blood Cristina hCan MD Work Phone: Start: 09-28-2023 CONTINUOUS CARDIAC MONITORING STRIP Other Other Start: 09-28-2023 Assay of magnesium Keisha Alcantara MD Work Phone: Start: 09-28-2023 CBC AND ELECTRONIC DIFF Keisha Alcantara MD Work Phone: Start: 09-28-2023 Complete blood count with white cell differential, automated Keisha Alcantara MD Work Phone: Start: 09-27-2023 CONTINUOUS CARDIAC MONITORING STRIP Other Other Start: 09-27-2023 ABORH TYPE RECONFIRMATION Patrick Nguyen MD Work Phone: Start: 09-27-2023 Assay of magnesium Keisha Alcantara MD Work Phone: Start: 09-27-2023 CBC AND ELECTRONIC DIFF Keisha Alcantara MD Work Phone: Start: 09-27-2023 Complete blood count with white cell differential, automated Keisha Alcantara MD Work Phone: Start: 09-27-2023 Ct head/brain w/o co ntrast material Karan Marie MD Work Phone: Start: 09-27-2023 End: 09-27-2023 Antibody screen Evan Burnham MD Work Phone: Comment on above: Performed By: #### A 1CB, [id number] #### [facility] ([facility]) [address] [place] [address] Start: 09-27-2023 Mri brain brain stem w/o w/contrast material Karan Marie MD Work Phone: Start: 09-27-2023 Culture bct isol&prs mptv id isolate ea urine Keisha Alcantara MD Work Phone: Start: 09-27-2023 EXTRA MICRO Keisha Alcantara MD Work Phone: Start: 09-27-2023 URINALYSIS REFLEX TO CULTURE Keisha Alcantara MD Work Phone: Start: 09-27-2023 Blood typing serologic abo Keisha Alcantara MD Work Phone: Start: 09-27-2023 IP CONSULT TO SPEECH THERAPY Keisha Alcantara MD Work Phone: Start: 09-26-2023 Bilirubin direct Austin Matt boggs MD Work Phone: Start: 09-26-2023 CBC AND ELECTRONIC DIFF Austin Day MD Work Phone: Start: 09-26-2023 Complete blood count with white cell differential, automated Austin Day MD Work Phone: Start: 09-26-2023 GOLD TOP TUBE Austin Arredondo cic, MD Work Phone: Start: 09-26-2023 LAVENDER TOP TUBE Austin Day MD Work Phone: Start: 09-26-2023 Lipid panel Keisha Alcantara MD Work Phone: Start: 09-26-2023 LT BLUE TOP TUBE Austin boggs MD Work Phone: Start: 09-26-2023 MINT GREEN TOP TUBE Krystyna Day MD Work Phone: Start: 09-26-2023 RAINBOW DRAW Austin levy MD Work Phone: Start: 09-26-2023 Ct head/brain w/o co ntrast material Austin Day MD Work Phone: Start: 09-26-2023 Glucose measurement, blood Other Other OT Start: 09-26-2023 Lipid 1996 panel - S alma delia or Plasma Evan Burnham MD Work Phone: Start: 07-31-2023 Radiologic exam ches t 2 views Willie Gilbert PHYSICIAN UNDERWRITER.REBRANDER Work Phone: Start: 04-12-2023 Urnls dip stick/tabl et rgnt auto w/o microscopy Barbara Quarles PHYSICIAN UNDERWRITER.REBRANDER Work Phone: Start: 01-14-2022 Radiologic examinati on pelvis 1/2 views Hardik Spain DO Work Phone: Start: 07-18-2021 Adult depression scr eening assessment Robert Ardon MD Work Phone: Start: 03-18-2021 Radex hips bilateral with pelvis minimum 5 views Gerardo Lopez PA-C Work Phone: Start: 06-07-2017 Lipid 1996 panel - S alma delia or Plasma Mathew Cobian MD Work Phone: Plan of Treatment Date Care Activity Detail Author Start: 05-03-2029 Prostate specific antigen measurement Prostate Cancer Screening Discussion [facility] Start: 09-25-2028 Lipid panel LIPID SCREENING [facility] Start: 09-12-2028 Prostate specific antigen measurement Prostate Cancer Screening Discussion [facility] Start: 08-28-2028 DTaP/Tdap/Td Vaccine s (3 - Td or Tdap) DTaP/Tdap/Td Vaccines (3 - Td or Tdap) [facility] Start: 08-28-2028 Tetanus vaccination TETANUS [facility] Start: 08-28-2028 Urine microalbumin profile [facility] Start: 01-18-2028 Diabetes Screening Diabetes Screenin g [facility] Start: 12-15-2027 PROSTATE CANCER SCREENING DISCUSSION PROSTATE CANCER SCREENING DISCUSSION [facility] Start: 12-15-2027 Prostate specific antigen measurement Prostate Cancer Screening Discussion [facility] Start: 07-12-2027 Diabetes Screening Diabetes Screenin g [facility] Start: 2027 RSV Immunization age d 60 or older (1 - 1-dose 60+ series) RSV Immunization aged 60 or older (1 - 1-dose 60+ series) [facility] Start: 04-18-2027 PROSTATE CANCER SCREENING DISCUSSION PROSTATE CANCER SCREENING DISCUSSION [facility] Start: 03-12-2027 Diabetes Screening Diabetes Screenin g [facility] Start: 12-13-2026 Diabetes Screening Diabetes Screenin g [facility] Start: 10-04-2026 Diabetes Screening Diabetes Screenin g [facility] Start: 09-14-2026 Diabetes Screening Diabetes Screenin g [facility] Start: 07-13-2026 Diabetes Screening Diabetes Screenin g [facility] Start: 01-17-2026 Annual PCP Team Skin Care Instructor reina Disease Visit Annual PCP Team Chronic Disease Visit [facility] Start: 01-14-2026 Annual PCP Team Skin Care Instructor reina Disease Visit Annual PCP Team Chronic Disease Visit [facility] Start: 12-14-2025 DIABETES SCREEN DIABETES SCREEN [facility] Start: 05-24-2026 Diabetes Screening Diabetes Screenin g [facility] Start: 12-13-2025 Annual PCP Team Skin Care Instructor reina Disease Visit Annual PCP Team Chronic Disease Visit [facility] Start: 07-25-2025 Annual PCP Team Skin Care Instructor reina Disease Visit Annual PCP Team Chronic Disease Visit [facility] Start: 07-12-2025 Annual PCP Team Skin Care Instructor reina Disease Visit Annual PCP Team Chronic Disease Visit [facility] Start: 05-20-2025 End: 05-20-2025 Patient encounter procedure 05/20/2025 11:00 AM EDT Office Visit Urology [address] [address] Raphael Calderon Jr., MD [address] [place], [place] [address] 6 month follow up Urology Comment on above: 6 month follow up Start: 05-13-2025 Screening for malign ant neoplasm of colon [facility] Start: 05-03-2025 Annual PCP Team Skin Care Instructor reina Disease Visit Annual PCP Team Chronic Disease Visit [facility] Start: 04-30-2025 Annual PCP Team Skin Care Instructor reina Disease Visit Annual PCP Team Chronic Disease Visit [facility] Start: 04-17-2025 Annual PCP Team Skin Care Instructor reina Disease Visit Annual PCP Team Chronic Disease Visit [facility] Start: 04-12-2025 Annual PCP Team Skin Care Instructor reina Disease Visit Annual PCP Team Chronic Disease Visit [facility] Start: 03-24-2025 Influenza vaccination Influenz a Vaccine (Season Ended) [facility] Start: 03-15-2025 Annual PCP Team Skin Care Instructor reina Disease Visit Annual PCP Team Chronic Disease Visit [facility] Start: 01-23-2025 End: 01-23-2025 Patient encounter procedure 01/23/2025 10:00 AM EDT Office Visit General Surgery [address] [place] [address] Jennifer Mcghee APRN.REBRANDER [address] [place] [address] diverticulitis f/u see TE per nurse General Surgery Comment on above: diverticulitis f/u s ee TE per nurse Start: 01-21-2025 End: 01-21-2025 Patient encounter procedure [facility] [place] Comment on above: 6 month follow up Fungal infection of toenail [B35.1] Start: 01-20-2025 Influenza vaccination Influenza Vacc ine (#1) [facility] Comment on above: Postponed from 03/24 (Declined at this time) Start: 01-17-2025 End: 04-18-2025 Cobalamin (Vitamin B12) [Mass/volume] in Serum or Plasma [facility] Comment on above: Expected: 01/17/2025 , Expires: 04/18/2025 Start: 01-17-2025 End: 04-18-2025 Pyridoxine [Mass/volume] in Serum or Plasma [facility] Comment on above: Expected: 01/17/2025 , Expires: 04/18/2025 Start: 01-17-2025 End: 04-18-2025 Riboflavin [Moles/volume] in Serum or Plasma [facility] Comment on above: Expected: 01/17/2025 , Expires: 04/18/2025 Start: 01-17-2025 End: 04-18-2025 VITAMIN B1 (THIAMINE), WHOLE BLOOD [facility] Work Phone: Comment on above: Expected: 01/17/2025 , Expires: 04/18/2025 Start: 01-17-2025 End: 01-17-2025 Patient encounter procedure 01/17/2025 10:20 AM EDT Office Visit [facility] [address] [place] [phone] Ino Esqueda APRN.REBRANDER [address] [place] [address] [phone] 3 day follow up [facility] Comment on above: 3 day follow up Start: 01-14-2025 End: 01-14-2025 Patient encounter procedure 01/14/2025 10:20 AM EDT Office Visit [facility] [address] [place] [address] [phone] Ino Esqueda APRN.REBRANDER [address] [place] [phone] skin tags,allergies [facility] Comment on above: skin tags,allergies Start: 12-13-2024 Annual PCP Team Skin Care Instructor reina Disease Visit Annual PCP Team Chronic Disease Visit [facility] Start: 11-05-2024 [place] Siddiqui [facility] Start: 10-28-2024 End: 10-28-2024 Patient encounter procedure 10/28/2024 10:20 AM EDT Appointment [facility] [address] [place] [address] Prostate cancer (HCC) [C61] [facility] Comment on above: Prostate cancer (HCC ) [C61] Start: 10-16-2024 Annual PCP Team Skin Care Instructor reina Disease Visit Annual PCP Team Chronic Disease Visit [facility] Start: 10-16-2024 Covid-19 Vaccine () Covid-19 Vaccine () [facility] Comment on above: Postponed from 03/24 (Declined at this time) Start: 09-14-2024 Annual PCP Team Skin Care Instructor reina Disease Visit Annual PCP Team Chronic Disease Visit [facility] Start: 09-12-2024 End: 12-12-2024 Prostate specific Ag [Mass/volume] in Serum or Plasma PROSTATE-SPECIFIC ANTIGEN DIAGNOSTIC Lab Routine Prostate cancer (HCC) Expected: 09/12/2024, Expires: 12/12/2024 [facility] Comment on above: Expected: 09/12/2024 , Expires: 12/12/2024 Start: 09-10-2024 End: 09-10-2024 Patient encounter procedure 09/10/2024 11:15 AM EST Office Visit Urology [address] [address] Raphael Calderon Jr., MD [address] [place] [address] 6 mth follow up to scan Urology Comment on above: 6 mth follow up to s can Start: 08-29-2024 End: 11-28-2024 Thyrotropin [Units/volume] in Serum or Plasma THYROID STIMULATING HORMONE Lab Routine Hypothyroidism, unspecified type Expected: 08/29/2024, Expires: 11/28/2024 [facility] Work Phone: Comment on above: Expected: 08/29/2024 , Expires: 11/28/2024 Start: 08-26-2024 End: 08-26-2024 Patient encounter procedure 08/26/2024 10:30 AM EST Office Visit Orthopaedics [address] [place] [address] Tammie Benitez PA-C [address] [place] [address] Follow up Orthopaedics Comment on above: Follow up Start: 08-15-2024 Annual PCP Team Skin Care Instructor reina Disease Visit Annual PCP Team Chronic Disease Visit [facility] Start: 07-29-2024 End: 07-29-2024 Patient encounter procedure 07/29/2024 3:30 PM EST Office Visit Orthopaedics [address] [place] [address] Tammie Benitez PA-C [address] [place] [address] Right fibula fracture - [facility] ED Orthopaedics Comment on above: Right fibula fractur e - [facility] ED Start: 07-29-2024 DIABETES SCREEN DIABETES SCREEN [facility] Start: 07-29-2024 End: 07-29-2024 Patient encounter procedure 07/29/2024 10:20 AM EST Appointment [facility] [address] [place] [address] Prostate cancer (HCC) [C61] [facility] Comment on above: Prostate cancer (HCC ) [C61] Start: 07-25-2024 End: 07-25-2024 Patient encounter procedure 07/25/2024 10:00 AM EST Office Visit Family [facility] [address] [place] [address] Mathew Cobian MD [address] [place], [place] [phone] [facility] ER f/u closed fx of fibula proximal right. 07-22-24 [facility] Comment on above: [facility] ER f/u closed fx of fibula proximal right. 07-22-24 Start: 07-24-2024 Medicare Advantage Annual Wellness Visit Medicare Advantage Annual Wellness Visit [facility] Start: [facility] Start: 07-12-2024 End: 07-12-2024 Patient encounter procedure 07/12/2024 11:00 AM EST Office Visit [facility] [address] [place], [place] [id number] Brian Ahmadi, PHYSICIAN UNDERWRITER.REBRANDER [address] [place], [place] [id number] 3 month follow up [facility] Comment on above: 3 month follow up Start: 07-07-2024 End: 10-06-2024 Basic metabolic 2000 panel - Serum or Plasma BASIC METABOLIC PANEL Lab Routine Hypothyroidism, unspecified type Expected: 07/07/2024 (Approximate), Expires: 10/06/2024 [facility] Comment on above: Expected: 07/07/2024 (Approximate), Expires: 10/06/2024 Start: 07-07-2024 End: 10-06-2024 Thyrotropin [Units/volume] in Serum or Plasma THYROID STIMULATING HORMONE Lab Routine Hypothyroidism, unspecified type Expected: 07/07/2024 (Approximate), Expires: 10/06/2024 [facility] Work Phone: Comment on above: Expected: 07/07/2024 (Approximate), Expires: 10/06/2024 Start: 06-03-2024 End: 06-03-2024 ambulatory 06/03/2024 3:00 PM EST [facility] [address] [phone] Devi Cisse MD [address] [place], [place] [phone] memory change Neurology Comment on above: memory change Start: 06-03-2024 End: 09-02-2024 Cobalamin (Vitamin B12) [Mass/volume] in Serum or Plasma VITAMIN B12 Lab Routine Confusion Expected: 06/03/2024, Expires: 09/02/2024 [facility] Comment on above: Expected: 06/03/2024 , Expires: 09/02/2024 Start: 06-03-2024 End: 09-02-2024 Folate [Mass/volume] in Serum or Plasma FOLATE, SERUM Lab Routine Confusion Expected: 06/03/2024, Expires: 09/02/2024 [facility] Comment on above: Expected: 06/03/2024 , Expires: 09/02/2024 Start: 06-03-2024 End: 09-02-2024 Magnesium [Mass/volume] in Serum or Plasma MAGNESIUM Lab Routine Confusion Expected: 06/03/2024, Expires: 09/02/2024 [facility] Comment on above: Expected: 06/03/2024 , Expires: 09/02/2024 Start: 06-03-2024 End: 09-02-2024 Methylmalonate [Moles/volume] in Serum or Plasma METHYLMALONIC ACID Lab Routine Confusion Expected: 06/03/2024, Expires: 09/02/2024 [facility] Comment on above: Expected: 06/03/2024 , Expires: 09/02/2024 Start: 06-03-2024 End: 09-02-2024 Thyrotropin [Units/volume] in Serum or Plasma THYROID STIMULATING HORMONE Lab Routine Confusion Expected: 06/03/2024, Expires: 09/02/2024 [facility] Comment on above: Expected: 06/03/2024 , Expires: 09/02/2024 Start: 05-22-2024 End: 05-22-2024 Patient encounter procedure 05/22/2024 11:15 AM EDT Office Visit General Surgery [address] [place] [address] Gilson Bar DO [address] [place] [phone] f/u colonoscopy General Surgery Comment on above: f/u colonoscopy Start: 05-13-2024 End: 05-13-2024 Patient encounter procedure 05/13/2024 8:15 AM EDT Appointment [facility] [address] [place] [address] Gilson Bar, DO [address] [place] [address] Yuko Silva APRN.MARINE SERVICE OPERATOR [address] [place] [address] [place] [address] [place] [address] to be admitted the day prior per colon [facility] Comment on above: to be admitted [facility] ay [facility] Start: 05-08-2024 End: 05-08-2024 Patient encounter procedure 05/08/2024 1:00 PM EDT Office Visit General Surgery [address] [place], [place] [address] Gilson Bar, DO [address] [place] [address] Diverticulitis [K57.92] General Surgery Comment on above: Diverticulitis [K57. 92] Start: 05-03-2024 End: 05-03-2024 Patient encounter procedure 05/03/2024 10:40 AM EDT Office Visit [facility] [place] [address] [place], [place] [phone] Brian Ahmadi APRN.REBRANDER [address] [place], [place] [phone] Follow up [facility] [place] Comment on above: Follow up Start: 05-02-2024 End: 08-01-2024 Prostate specific Ag [Mass/volume] in Serum or Plasma PROSTATE-SPECIFIC ANTIGEN DIAGNOSTIC Lab Routine Prostate cancer (HCC) Expected: 05/02/2024, Expires: 08/01/2024 [facility] Work Phone: Comment on above: Expected: 05/02/2024 , Expires: 08/01/2024 Start: 04-24-2024 End: 04-24-2024 ambulatory 04/24/2024 9:00 AM EDT [facility] Neurology [address] [address] Devi Cisse MD [address] [place] [address] Memory changes [R41.3] Neurology Comment on above: Memory changes [R41. 3] Start: 04-24-2024 End: 04-24-2024 Patient encounter procedure 04/24/2024 9:00 AM EDT Office Visit Neurology [address] [address] Devi Cisse MD [address] [place] [address] Memory changes [R41.3] Neurology Comment on above: Memory changes [R41. 3] Start: 04-22-2024 End: 04-22-2024 Patient encounter procedure 04/22/2024 10:45 AM EDT Appointment Radiology [address] [place], [place] [phone] Neck mass [R22.1] Radiology Comment on above: Neck mass [R22.1] Start: 04-12-2024 End: 07-12-2024 Thyrotropin [Units/volume] in Serum or Plasma THYROID STIMULATING HORMONE Lab Routine Hypothyroidism, unspecified type Expected: 04/12/2024 (Approximate), Expires: 07/12/2024 [facility] Work Phone: Comment on above: Expected: 04/12/2024 (Approximate), Expires: 07/12/2024 Start: 04-12-2024 End: 04-12-2024 Patient encounter procedure 04/12/2024 10:40 AM EDT Office Visit [facility] [place] [address] [place], [place] [phone] Brian Ahmadi APRN.REBRANDER [address] [facility] [place] [phone] 4 week follow up [facility] Comment on above: 4 week follow up Start: 03-24-2024 Covid-19 Vaccine (4 - 2023-24 season) Covid-19 Vaccine ( season) [facility] Start: 03-24-2024 Covid-19 Vaccine ( season) Covid-19 Vaccine ( season) [facility] Start: 03-24-2024 Influenza vaccination C [facility] Start: 03-15-2024 End: 03-15-2024 Patient encounter procedure 03/15/2024 10:20 AM EDT Office Visit [facility] [address] [place], [place] [phone] Brian Ahmadi APRN.REBRANDER [address] [place], [place] [phone] Follow up for TSH Lab [facility] [place] Comment on above: Follow up for TSH La b Start: 03-12-2024 End: 03-12-2024 Patient encounter procedure 03/12/2024 11:30 AM EDT Office Visit Urology [address] [id number] Raphael Calderon Jr., MD [address] [place], [place] [address] 6 mth follow up Urology Comment on above: 6 mth follow up Start: 01-21-2024 Influenza vaccination Influenza Vacc ine (#1) [facility] Comment on above: Postponed from 03/24 (Declined at this time) Start: 12-21-2023 ANNUAL PCP TEAM 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 REINA DISEASE VISIT ANNUAL PCP TEAM CHRONIC DISEASE VISIT [facility] Start: 12-14-2023 End: 03-14-2024 VITAMIN B1 (THIAMINE), WHOLE BLOOD [facility] Work Phone: Comment on above: Expected: 12/14/2023 , Expires: 03/14/2024 Start: 10-18-2023 End: 10-18-2023 Patient encounter procedure 10/18/2023 8:00 AM EDT Office Visit [facility] [address] [place] [phone] Cameron Taylor MD [address] [place] [address] [facility] Start: 09-15-2023 End: 12-15-2023 Thyrotropin [Units/volume] in Serum or Plasma TSH BLD Lab Routine Hypothyroidism, unspecified type Expected: 09/15/2023, Expires: 12/15/2023 [facility] Work Phone: Comment on above: Expected: 09/15/2023 , Expires: 12/15/2023 Start: 09-15-2023 End: 12-15-2023 Thyroxine (T4) free [Mass/volume] in Serum or Plasma T4 FREE/FREE THYROX Lab Routine Hypothyroidism, unspecified type Expected: 09/15/2023, Expires: 12/15/2023 [facility] Work Phone: Comment on above: Expected: 09/15/2023 , Expires: 12/15/2023 Start: 09-14-2023 End: 12-14-2023 25-hydroxyvitamin D3 [Mass/volume] in Serum or Plasma [facility] Work Phone: Comment on above: Expected: 09/14/2023 , Expires: 12/14/2023 Start: 09-14-2023 End: 12-14-2023 Cobalamin (Vitamin B12) [Mass/volume] in Serum or Plasma [facility] Work Phone: Comment on above: Expected: 09/14/2023 , Expires: 12/14/2023 Start: 09-14-2023 End: 12-14-2023 Comprehensive metabolic 2000 panel - Serum or Plasma [facility] Work Phone: Comment on above: Expected: 09/14/2023 , Expires: 12/14/2023 Start: 09-14-2023 End: 12-14-2023 Folate [Mass/volume] in Serum or Plasma [facility] Work Phone: Comment on above: Expected: 09/14/2023 , Expires: 12/14/2023 Start: 09-14-2023 End: 12-14-2023 Thyrotropin [Units/volume] in Serum or Plasma [facility] Work Phone: Comment on above: Expected: 09/14/2023 , Expires: 12/14/2023 Start: 09-14-2023 End: 12-14-2023 Thyroxine (T4) free [Mass/volume] in Serum or Plasma [facility] Work Phone: Comment on above: Expected: 09/14/2023 , Expires: 12/14/2023 Start: 07-24-2023 Depression Assessment Depression Ass essment [facility] Start: 06-07-2023 ANNUAL PCP TEAM 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 REINA DISEASE VISIT ANNUAL PCP TEAM CHRONIC DISEASE VISIT [facility] Start: 03-24-2023 COVID-19 VACCINE () COVID-19 VACCINE () [facility] Start: 03-24-2023 Covid-19 Vaccine () Covid-19 Vaccine () [facility] Start: 03-24-2023 Influenza vaccination [facility] Start: 02-19-2023 End: 04-21-2023 25-hydroxyvitamin D3 [Mass/volume] in Serum or Plasma VITAMIN D 25 HYDROXY Lab Routine Vitamin D deficiency Expected: 02/19/2023 (Approximate), Expires: 04/21/2023 [facility] Work Phone: Comment on above: Expected: 02/19/2023 (Approximate), Expires: 04/21/2023 Start: 02-19-2023 End: 04-21-2023 Thyrotropin [Units/volume] in Serum or Plasma TSH BLD Lab Routine Hypothyroidism, unspecified type Expected: 02/19/2023 (Approximate), Expires: 04/21/2023 [facility] Work Phone: Comment on above: Expected: 02/19/2023 (Approximate), Expires: 04/21/2023 Start: 01-20-2023 Influenza vaccination INFLUENZA (#1) [facility] Comment on above: Postponed from 03/24 (Declined at this time) Start: 11-14-2022 End: 01-14-2023 25-hydroxyvitamin D3 [Mass/volume] in Serum or Plasma VITAMIN D 25 HYDROXY Lab Routine Vitamin D deficiency Expected: 11/14/2022 (Approximate), Expires: 01/14/2023 [facility] Work Phone: Comment on above: Expected: 11/14/2022 (Approximate), Expires: 01/14/2023 Start: 11-14-2022 End: 01-14-2023 CBC panel - Blood by Automated count CBC Lab Routine Alcohol use GERD without esophagitis Expected: 11/14/2022 (Approximate), Expires: 01/14/2023 [facility] Work Phone: Comment on above: Expected: 11/14/2022 (Approximate), Expires: 01/14/2023 Start: 11-14-2022 End: 01-14-2023 Comprehensive metabolic 2000 panel - Serum or Plasma COMP METABOLIC PANEL Lab Routine Alcohol use Expected: 11/14/2022 (Approximate), Expires: 01/14/2023 [facility] Work Phone: Comment on above: Expected: 11/14/2022 (Approximate), Expires: 01/14/2023 Start: 11-14-2022 End: 01-14-2023 Thyrotropin [Units/volume] in Serum or Plasma TSH BLD Lab Routine Hypothyroidism, unspecified type Alcohol use Expected: 11/14/2022 (Approximate), Expires: 01/14/2023 [facility] Work Phone: Comment on above: Expected: 11/14/2022 (Approximate), Expires: 01/14/2023 Start: 11-14-2022 End: 01-14-2023 VITAMIN B1 (THIAMINE), WHOLE BLOOD VITAMIN B1 (THIAMINE), WHOLE BLOOD Lab Routine Alcohol use Expected: 11/14/2022 (Approximate), Expires: 01/14/2023 [facility] Work Phone: Comment on above: Expected: 11/14/2022 (Approximate), Expires: 01/14/2023 Start: 10-17-2022 End: 12-17-2022 Prostate specific Ag [Mass/volume] in Serum or Plasma PSA/PROSTSPECAG DIAG Lab Routine Malignant neoplasm of prostate (HCC) Expected: 10/17/2022, Expires: 12/17/2022 [facility] Work Phone: Comment on above: Expected: 10/17/2022 , Expires: 12/17/2022 Start: 09-10-2022 End: 11-10-2022 Thyrotropin [Units/volume] in Serum or Plasma TSH BLD Lab Routine Hypothyroidism, unspecified type Expected: 09/10/2022 (Approximate), Expires: 11/10/2022 [facility] Work Phone: Comment on above: Expected: 09/10/2022 (Approximate), Expires: 11/10/2022 Start: 07-24-2022 DEPRESSION ASSESSMENT DEPRESSION ASS ESSMENT [facility] Start: 07-18-2022 Adult depression screening assessment DEPRESSION SCREENING [facility] Start: 06-08-2022 Influenza vaccination LUNG CANCER SC REENING [facility] Start: 06-08-2022 Screening for malign ant neoplasm of lung Lung Cancer Screening [facility] Start: 06-07-2022 Lipid 1996 panel - S alma delia or Plasma Lipid Screening [facility] Start: 06-07-2022 Lipid panel Lipid Screening [facility] Start: 06-07-2022 LIPID SCREEN LIPID SCREEN [facility] Start: 04-16-2022 ANNUAL 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 REINA DISEASE VISIT ANNUAL PCP TEAM CHRONIC DISEASE VISIT [facility] Start: 03-24-2022 Influenza vaccination C [facility] Start: 10-28-2021 COVID-19 VACCINE (4 - Booster for Pfizer series) COVID-19 VACCINE (4 - Booster for Pfizer series) [facility] Start: 08-24-2021 COVID-19 VACCINE (4 - Booster for Pfizer series) COVID-19 VACCINE (4 - Booster for Pfizer series) [facility] Start: 08-24-2021 COVID-19 VACCINE (4 - Pfizer series) COVID-19 VACCINE (4 - Pfizer series) [facility] Start: 07-24-2021 DEPRESSION ASSESSMENT DEPRESSION ASS ESSMENT [facility] Start: 2017 Pneumococcal Vaccine : 50+ (1 of 1 - PCV) Pneumococcal Vaccine: 50+ (1 of 1 - PCV) [facility] Start: 2017 Prostate specific antigen measurement PROSTATE CANCER SCREENING DISCUSSION [facility] Start: 2017 SHINGRIX VACCINE (1 of 2) SHINGRIX VACCINE (1 of 2) [facility] Start: 2017 Zoster vaccine hzv l joselyn for subcutaneous use ZOSTER (SHINGLES) VACCINE (1 of 2) [facility] Start: 2017 Zoster Vaccines (1 of 2) Zoste r Vaccines (1 of 2) [facility] Start: 2012 COLOGUARD (FIT-DNA) COLOGUARD (FIT-D NA) [facility] Start: 2012 Colonoscopy COLONOSCOPY [facility] Start: 2012 COLORECTAL CANCER SCREENING COLORECTAL CANCER SCREENING [facility] Start: [address] COLONOGRAPHY [facility] Start: 2012 FECAL OCCULT BLOOD FECAL OCCULT BLOO D [facility] Start: 2012 Screening for malign ant neoplasm of colon [facility] Start: 2012 SIGMOIDOSCOPY SIGMOIDOSCOPY [facility] Start: 1986 Hepatitis B vaccination HEP B VACCINE (1 of 3 - 19+ 3-dose series) [facility] Start: 1986 Hepatitis B Vaccine (1 of 3 - 19+ 3-dose series) Hepatitis B Vaccine (1 of 3 - 19+ 3-dose series) [facility] Start: 1986 Hepatitis B Vaccines (1 of 3 - 19+ 3-dose series) Hepatitis B Vaccines (1 of 3 - 19+ 3-dose series) [facility] Start: 1986 SHINGRIX VACCINE (1 of 2) SHINGRIX VACCINE (1 of 2) [facility] Start: 1985 Hepatitis C screening Hepatitis C Sc reening [facility] Start: 1985 HIV SCREENING HIV SCREENING [facility] Start: 1985 HIV screening HIV Screening [facility] Start: 1982 HIV screening HIV SCREENING DISCUSSION [facility] Start: 1979 Depression Screening Depression Scre ening [facility] Start: 1973 PNEUMOCOCCAL (1 - PCV) PNEUMOCOCCAL (1 - PCV) [facility] Start: 1973 Pneumococcal vaccination [facility] Start: 1968 MMR Vaccines (1 of 1 - Standard series) MMR Vaccines (1 of 1 - Standard series) [facility] Start: 1967 HEPATITIS B (1 of 3 - 3-dose series) HEPATITIS B (1 of 3 - 3-dose series) [facility] Start: 1967 Hepatitis B Vaccine (1 of 3 - 3-dose series) Hepatitis B Vaccine (1 of 3 - 3-dose series) [facility] Start: 1967 Hepatitis C screening HEPATITI S C VIRUS SCREENING [facility] Start: 1967 HIV screening HIV Screening [facility] Start: 1967 Lipid panel Lipid Panel [facility] Start: 1967 Screening for malign ant neoplasm of colon [facility] Start: 1967 Thyroid stimulating hormone measurement TSH [facility] BACH SCREENING TEST BACH SCREENI NG TEST Procedures Routine Memory loss Ordered: 03/15/2024 [facility] Comment on above: Ordered: 03/15/2024 Bacteria identified in Urine by Culture URINE CULTURE Microbiology Routine Urinary frequency 04/12/2023 8:00 PM EDT [facility] Work Phone: Bacteria identified in Urine by Culture URINE CULTURE Microbiology Routine Pain in right testicle Right groin pain 11/01/2023 4:37 PM EDT [facility] Work Phone: End: 06-03-2025 EPIL EEG ROUTINE EPIL EEG ROUTINE NEUROLOGY Routine Confusion 1 Occurrences starting 06/03/2024 until 06/03/2025 [facility] Work Phone: Comment on above: 1 Occurrences starti ng 06/03/2024 until 06/03/2025 End: 05-08-2025 Flexible sigmoidoscopy study COLONOSCOPY DIAGNOSTIC Endoscopy Routine Diverticulitis Bloody stools 1 Occurrences starting 05/08/2024 until 05/08/2025 [facility] Work Phone: Comment on above: 1 Occurrences starti ng 05/08/2024 until 05/08/2025 End: 04-11-2025 MR Prostate WO and W contrast IV MRI PROSTATE WO/W IVCON Radiology Routine Prostate cancer (HCC) 1 Occurrences starting 03/12/2024 until 04/11/2025 [facility] Work Phone: Comment on above: 1 Occurrences starti ng 03/12/2024 until 04/11/2025 MR Prostate WO and W contrast IV MRI PROSTATE WO/W IVCON Radiology Routine Prostate cancer (HCC) 10/28/2024 11:31 AM EDT [facility] Work Phone: Patient Education [facility] Work Phone: Patient referral [facility] Work Phone: End: 02-13-2023 Radiologic examination pelvis 1/2 views XR PELVIS 1V AP Radiology Routine Abnormal x-ray of pelvis 1 Occurrences starting 01/14/2022 until 02/13/2023 [facility] Work Phone: Comment on above: 1 Occurrences starti ng 01/14/2022 until 02/13/2023 End: 09-26-2023 Standard ECG [facility] Comment on above: One Time for 1 Occur rences starting 09/26/2023 until 09/26/2023 End: 09-27-2023 Standard ECG [facility] Work Phone: Comment on above: One Time for 1 Occur rences starting 09/27/2023 until 09/27/2023 SURGICAL PATHOLOGY [facility] Work Phone: Comment on above: Release Upon Orderin g for 1 Occurrences starting 05/13/2024, 1 completed End: 05-17-2025 US Head and neck soft tissue US HEAD/NECK SOFT TISSUE OTHER Radiology Routine Neck mass 1 Occurrences starting 04/17/2024 until 05/17/2025 [facility] Work Phone: Comment on above: 1 Occurrences starti ng 04/17/2024 until 05/17/2025 XR Tibia and Fibula - right AP and Lateral XR TIBIA FIBULA 2V AP/LAT RIGHT Radiology Routine Other closed fracture of proximal end of right fibula, initial encounter 07/29/2024 4:28 PM EST [facility] Work Phone: End: 09-19-2025 XR Tibia and Fibula - right AP and Lateral XR TIBIA FIBULA 2V AP/LAT RIGHT Radiology Routine Other closed fracture of proximal end of right fibula, initial encounter 1 Occurrences starting 08/20/2024 until 09/19/2025 [facility] Work Phone: Comment on above: 1 Occurrences starti ng 08/20/2024 until 09/19/2025 [facility] Immunizations Immunization Date Immunization Notes Care Provider Fa cility 04-30-2024 COVID-19 vaccine, ag e 12+ yr ([employer]) Brian Ahmadi APRN.[facility] Work Phone: [facility] 10-27-2020 Covid (Pfizer) [facility] 10-06-2020 Covid (Pfizer) [facility] 08-28-2018 tetanus toxoid, reduced diphtheria toxoid, and acellular pertussis vaccine, adsorbed Robert Ardon MD Work Phone: [facility] Work Phone: 06-07-2017 influenza virus vaccine, unspecified formulation Mathew Cobian MD Work Phone: [facility] 06-25-2011 tetanus toxoid, reduced diphtheria toxoid, and acellular pertussis vaccine, adsorbed Robert Ardon MD Work Phone: [facility] Payers Date Payer Category Payer Medicare (Managed Care) [facility] MEDICARE [id number] 2024 Unknown [id number] 2024 Self-pay [id number] 2021 Medicaid [id number] 2021 Unknown 2021 Unknown [employer] HB ONLY x0000 2021-Present [id number] ATT[address] [facility] [place] [address] Other [phone] [id number] 2021 Medicaid [employer] [id number] 2021-Present [phone] [address] [place] [address] Medicaid [id number] 2021 Medicaid [id number] 2021 Medicaid [id number] 2020 Medicare MEDICARE MEDICAR E A AND B [id number] 2020-Present [phone] [place] [address] Medicare [id number] 1992 Medicare [id number] 1992 Medicare [id number] 1967 Unknown [id number] 1967 Unknown [id number] 1967 Unknown [id number] Unknown [id number] Unknown [id number] Unknown [id number] Unknown [id number] Social History Date Type Detail Facility Start: 01-14-2022 End: 11-05-2024 Tobacco smoking status NHIS Smokes tobacco daily [facility] Start: 07-29-1993 End: 07-30-2023 History of tobacco use Cigarette Smoker [facility] Start: 09-30-2021 End: 01-14-2025 Alcohol intake Current drinker of alcohol (finding) [facility] Start: 05-19-2021 End: 12-20-2022 History SDOH Alcohol Frequency 4 [facility] Start: 05-19-2021 End: 12-20-2022 History SDOH Alcohol Std Drinks 2 [facility] Start: 09-22-2021 History SDOH Alcohol Comment 3/4 beers daily sometimes [facility] Start: 05-19-2021 End: 12-20-2022 History SDOH Social Connections Phone 5 [facility] Start: 05-19-2021 End: 06-07-2022 History SDOH Social Connections Get Together 98 [facility] Start: 05-19-2021 End: 06-07-2022 History SDOH Social Connections Mandaen 1 [facility] Start: 05-19-2021 End: 12-20-2022 History SDOH Social Connections Living 7 [facility] Start: 05-19-2021 End: 12-20-2022 History SDOH Physical Activity DPW 0 [facility] Start: 05-19-2021 End: 06-07-2022 History SDOH Stress 3 [facility] Start: 02-21-2020 Education 21 [facility] Start: 04-16-2021 Tobacco Comment couple per day [facility] Start: 1965 Sex Assigned At Male [facility] Start: 02-15-2021 End: 06-07-2022 Exposure to SARS-CoV-2 (event) Not sure [facility] Work Phone: Start: 01-14-2022 End: 06-07-2022 Tobacco Comment Pt has cut back to 1/4 pack daily. [facility] Start: 02-27-2022 End: 02-28-2022 Tobacco smoking status NHIS Unknown if ever smoked [facility] Start: 11-02-2018 Occasional [facility] Start: 11-02-2018 None [facility] Start: 11-02-2018 With Family [facility] Start: 12-04-2020 Cigarettes [facility] Start: 01-14-2022 End: 07-12-2024 Cigarettes smoked current (pack per day) - Reported 1 [facility] Start: 01-14-2022 End: 03-12-2024 Tobacco use and exposure Smokeless tobacco non-user [facility] Start: 12-20-2022 End: 07-12-2024 Social connection and isolation panel [facility] Do you belong to any clubs or organizations such as mormon groups, unions, fraternal or athletic groups, or school groups? No [facility] Are you now , , , , never or living with a partner? Never [facility] How often to you hav e a drink containing alcohol? Patient refused [facility] How many standard dr inks containing alcohol do you have on a typical day? 3 or 4 [facility] Do you feel stress - tense, restless, nervous, or anxious, or unable to sleep at night because your mind is troubled all the time - these days [OSQ] Rather much [facility] (I/We) worried wheth er (my/our) food would run out before (I/we) got money to buy more. Never true [facility] Start: 06-20-2021 Gender identity Identifies as male gender (finding) [facility] Start: 06-20-2021 Sexual orientation Heterosexual (finding) [facility] Start: 09-12-2023 End: 03-12-2024 Tobacco smoking status NHIS Ex-smoker [facility] Start: 07-29-1993 End: 07-30-2023 History of tobacco use Current smoker [facility] Start: 09-26-2023 Alcohol Comment 3-4 drinks/ week [facility] Start: 1965 Sex assigned at Not on file [facility] Start: 10-17-2023 Tobacco Comment Pt has cut back to 1/4 pack daily.Vaps off and on [facility] How often to you hav e a drink containing alcohol? 2-3 time sa week [facility] How often do you hav e 6 or more drinks on 1 occasion? Less than monthly [facility] How hard is it for y ou to pay for the very basics like food, housing, medical care, and heating Not very hard [facility] Do you feel stress - tense, restless, nervous, or anxious, or unable to sleep at night because your mind is troubled all the time - these days [OSQ] Only a little [facility] Start: 04-11-2019 Tobacco Comment quit - 1 week [facility] How often to you hav e a drink containing alcohol? 2-4 times a month [facility] How often do you hav e 6 or more drinks on 1 occasion? Monthly [facility] Do you feel stress - tense, restless, nervous, or anxious, or unable to sleep at night because your mind is troubled all the time - these days [OSQ] To some extent [facility] Start: 05-08-2024 Alcohol Comment 3/4 beers per week [facility] Sexual Orientation Diane archer [facility] Start: 07-20-2024 End: 11-05-2024 Sex Male (finding) [facility] Functional Status Date Assessment Result Facility 07-20-2024 Functional Status Independent Diane Sammy carlson [facility] 07-20-2024 Functional Status Standard Safet y ID band on, Call device within reach, Bed in low position, Wheels locked, Bedside Cart Locked [facility] 05-13-2024 Are you deaf, or do you have serious difficulty hearing No 05/13/2024 4:51 PM EDT Yuni Santoyo RN No [facility] 05-13-2024 Do you have serious difficulty walking or climbing stairs No 05/13/2024 4:51 PM EDT Yuni Santoyo RN No [facility] 05-13-2024 Do you have difficul ty dressing or bathing No 05/13/2024 4:51 PM EDT Yuni Santoyo RN No [facility] 05-13-2024 Because of a physica l, mental, or emotional condition, do you have difficulty doing errands alone such as visiting a physician's office or shopping No 05/13/2024 4:51 PM EDT Yuni Santoyo RN No [facility] 10-27-2014 Are you blind, or do you have serious difficulty seeing, even when wearing glasses No 10/27/2014 4:20 PM EDT Maricarmen Leahy RN No [facility] Mental Status Date Assessment Result Facility 07-20-2024 Mental Status Orientation Oriented x 4 [facility] 07-20-2024 Mental Status [facility] 05-13-2024 Because of a physica l, mental, or emotional condition, do you have serious difficulty concentrating, remembering, or making decisions No 05/13/2024 4:51 PM EDT Yuni Santoyo RN No [facility] Clinical Notes 03-18-2021 to 01-17-2025 Telephone Encounter - Renard Lo RN - 01/17/2025 3:19 PM EDTTelephone Encounter - Renard Lo RN - 01/17/2025 3:19 PM EDTIno Esqueda APRN.REBRANDER - 01/17/2025 10:30 AM EDT Note Date & Type Note Facility 01-17-2025 Telephone encount er Note Pt called and is notified of providers results and instructions. Pt voices understanding. Transferred to scheduled to set up appt with General Surgery. Renard Lo RN [facility] 01-17-2025 Miscellaneous Notes Formattin g of this note might be different from the original. Pt called and is notified of providers results and instructions. Pt voices understanding. Transferred to scheduled to set up appt with General Surgery. Renard Lo RN CBC is stable. Schedule with general surgery for repeat scope FRANCIA. Complete antibiotics that were given for diverticulitis. Proceed to ER if fever, abdominal pain, rectal bleeding with no BM. Protocol recommends see provider in 24 hours. Pt was just in to see Ino Esqueda DIRECTOR SOFTWARE today. He wanted to know what provider though. He said when he had seen her he hadn't had a BM in 2 days, and now he went and had blood on top of stool maybe 1-2 table spoons and it turned water red. Pt reports minor abdominal pain. Care plan reviewed with patient. Patient voices understanding. Advised patient that if symptoms get worse to be evaluated in ER. Please call and advise Pt. Reason for Disposition MODERATE rectal bleeding (e.g., small blood clots, passing blood without stool, or toilet water turns red) Answer Assessment - Initial Assessment Questions 1. APPEARANCE of BLOOD:Bright red blood on top of the stool. 2. AMOUNT: Maybe a Table spoon or 2 of blood. 3. FREQUENCY: Once passed blood with stool. 4. ONSET: Going on x2 weeks. 5. DIARRHEA: Denies diarrhea. 6. CONSTIPATION: Reports a week ago Monday was the first time in many years. Then before today he hadn't had a BM in 2 days. 7. RECURRENT SYMPTOMS: Pt states the first time he had blood in his stool he went to the hospital and he was diagnosed with Diverticulitis. 8. BLOOD THINNERS: Pt denies any blood thinners. 9. OTHER SYMPTOMS: Pt reports slight abdomen pain. Pt denies vomiting, dizziness, or fever. 10. : N/A Protocols used: Rectal [id number] documented in this encounter [facility] 01-17-2025 Telephone encount er Note CBC is stable. Schedule with general surgery for repeat scope FRANCIA. Complete antibiotics that were given for diverticulitis. Proceed to ER if fever, abdominal pain, rectal bleeding with no BM. [facility] 01-17-2025 Telephone encount er Note Protocol recommends see provider in 24 hours. Pt was just in to see Ino Esqueda DIRECTOR SOFTWARE today. He wanted to know what provider though. He said when he had seen her he hadn't had a BM in 2 days, and now he went and had blood on top of stool maybe 1-2 table spoons and it turned water red. Pt reports minor abdominal pain. Care plan reviewed with patient. Patient voices understanding. Advised patient that if symptoms get worse to be evaluated in ER. Please call and advise Pt. Reason for Disposition MODERATE rectal bleeding (e.g., small blood clots, passing blood without stool, or toilet water turns red) Answer Assessment - Initial Assessment Questions 1. APPEARANCE of BLOOD:Bright red blood on top of the stool. 2. AMOUNT: Maybe a Table spoon or 2 of blood. 3. FREQUENCY: Once passed blood with stool. 4. ONSET: Going on x2 weeks. 5. DIARRHEA: Denies diarrhea. 6. CONSTIPATION: Reports a week ago Monday was the first time in many years. Then before today he hadn't had a BM in 2 days. 7. RECURRENT SYMPTOMS: Pt states the first time he had blood in his stool he went to the hospital and he was diagnosed with Diverticulitis. 8. BLOOD THINNERS: Pt denies any blood thinners. 9. OTHER SYMPTOMS: Pt reports slight abdomen pain. Pt denies vomiting, dizziness, or fever. 10. : N/A Protocols used: Rectal [id number] [facility] 01-17-2025 Note HNO ID: [id number] Author: INO ESQUEDA APRN.REBRANDER Service: ? Author Type: Nurse Practitioner Type: Progress Notes Filed: 01/17/2025 10:41 Note Text: Chief Complaint Patient presents with: Follow Up HPI Good De Luna is a 59 year old male who presents here today for Above Complaints. Patient presents for follow up. Patient was seen on 01/14 with reports of increased BM and blood with BM. Patient was initiated on flagyl and cedinir, no BM since initiation of ATB. Patient requesting pain mgt consult for low back. Also requesting testing to check vitamin b's, d and electrolytes as patient is fatigued. Past medical history, appointments, medications, allergies reviewed. Previous Medical History PAST MEDICAL HISTORY Diagnosis Date Acid reflux Anxiety state, unspecified Arthritis Cancer (HCC) Cerebral palsy (HCC) Congenital diplegia (HCC) Diverticulitis GERD (gastroesophageal reflux disease) JODEE on CPAP Sleep apnea 09/22/2008 Spinal stenosis Unspecified hypothyroidism Previous Surgical History PAST SURGICAL HISTORY Procedure Laterality Date COLONOSCOPY 05/13/2024 PAST SURGICAL HISTORY OF trigger finger procedure as a child TONSILLECTOMY HX TONSILLECTOMY PRIMARY/SECONDARY Tonsillectomy Family History FAMILY HISTORY Adopted: Yes Problem Relation Age of Onset Diabetes Mother Thyroid Maternal Grandmother Patient Allergies ALLERGIES No Known Allergies Current Medications Current Outpatient Medications on File Prior to Visit Medication Sig cefdinir (OMNICEF) 300 mg capsule Take 1 capsule by mouth two times a day for 7 days. metroNIDAZOLE (FLAGYL) 500 mg tablet Take 1 tablet by mouth three times a day for 7 days. fexofenadine (MARY ALLERGY) 180 mg tablet Take 1 tablet by mouth once daily. loratadine (CLARITIN) 10 mg tablet Take 1 tablet by mouth once daily as needed (for allergy symptoms). fluticasone (FLONASE ALLERGY RELIEF) 50 mcg/actuation nasal spray Use 1 spray in each nostril once daily. citalopram (CELEXA) 40 mg tablet Take 1 tablet by mouth once daily. levothyroxine (SYNTHROID) 150 mcg tablet Take 1 tablet by mouth once daily. omeprazole (PRILOSEC) 20 mg capsule take 1 capsule by mouth once daily cholecalciferol, vitamin D3, (VITAMIN D3 ORAL) Take 2,000 mcg by mouth once daily. CPAP Initiate CPAP @ 7 cm of water with humidification. Mask (per patient preference) optional chin strap (if indicated) , filters, tubing, humidifier and lifetime supplies. multivit-min/folic/vit K/lycop (MEN'S 50 PLUS MULTIVITAMIN ORAL) Take 1 tablet by mouth once daily. vitamin b complex capsule Take 1 capsule by mouth once daily. No current facility-administered medications on file prior to visit. Social History Social History Tobacco Use Smoking status: Former Current packs/day: 0.00 Average packs/day: 1 pack/day for 30.0 years (30.0 ttl pk-yrs) Types: Cigarettes Start date: 07/29/1993 Quit date: 07/29/2023 Years since quittin.4 Smokeless tobacco: Never Tobacco comments: Pt has cut back to 1/4 pack daily. Vaps off and on Vaping Use Vaping status: Some Days Substances: Nicotine Substance Use Topics Alcohol use: Yes Comment: 3/4 beers per week Drug use: No Review of Symptoms REVIEW OF SYSTEMS SEE HPI EXAM: BP 117/66 Pulse 69 General Appearance: Well appearing, alert, in no acute distress, well-hydrated, well nourished.. Abdomen: Abdomen soft, non-tender. Bowel sounds normal. No masses, organomegaly. Health Maintenance List HIV Screening Never done Hepatitis B Vaccine(1 of 3 - 19+ 3-dose series) Never done Shingrix Vaccine(1 of 2) Never done Pneumococcal Vaccine: 50+(1 of 1 - PCV) Never done Lung Cancer Screening due on 06/08/2022 Medicare Advantage Annual Wellness Visit Never done Influenza Vaccine(Season Ended) due on 03/24/2025 Colorectal Cancer Screening due on 05/13/2025 Annual PCP Team Chronic Disease Visit due on 01/14/2026 Diabetes Screening due on 07/12/2027 DTaP,Tdap,Td Vaccine(3 - Td or Tdap) due on 08/28/2028 Lipid Screening due on 09/25/2028 Prostate Cancer Screening Discussion due on 05/03/2029 Hepatitis C Screening Completed Covid-19 Vaccine Completed ASSESSMENT/PLAN: 1. Blood in stool - ICD9: 578.1, ICD10: K92.1 (primary diagnosis) - COMPLETE BLOOD COUNT AND DIFFERENTIAL - IRON AND TIBC - FERRITIN 2. Diverticulitis - ICD9: 562.11, ICD10: K57.92 - IRON AND TIBC - FERRITIN 3. Fatigue, unspecified type - ICD9: 780.79, ICD10: R53.83 - BASIC METABOLIC PANEL - MAGNESIUM - VITAMIN B1 (THIAMINE), WHOLE BLOOD - VITAMIN B2/RIBOFLAV - VITAMIN B6/PYRIDOXIN - VITAMIN B12 4. Low energy - ICD9: 780.79, ICD10: R53.83 - BASIC METABOLIC PANEL - MAGNESIUM - VITAMIN B1 (THIAMINE), WHOLE BLOOD - VITAMIN B2/RIBOFLAV - VITAMIN B6/PYRIDOXIN - VITAMIN B12 5. Chronic bilateral low back pain with right-sided sciatica - ICD9: 338.29, 724.2, 724.3, ICD10: G (more content not included)... [facility] 01-17-2025 History of Presen t illness Narrative Chief Complaint Patient presents with: Follow Up HPI Good De Luna is a 59 year old male who presents here today for Above Complaints. Patient presents for follow up. Patient was seen on 01/14 with reports of increased BM and blood with BM. Patient was initiated on flagyl and cedinir, no BM since initiation of ATB. Patient requesting pain mgt consult for low back. Also requesting testing to check vitamin b's, d and electrolytes as patient is fatigued. Past medical history, appointments, medications, allergies reviewed. Previous Medical History PAST MEDICAL HISTORY Diagnosis Date Acid reflux Anxiety state, unspecified Arthritis Cancer (HCC) Cerebral palsy (HCC) Congenital diplegia (HCC) Diverticulitis GERD (gastroesophageal reflux disease) JODEE on CPAP Sleep apnea 09/22/2008 Spinal stenosis Unspecified hypothyroidism Previous Surgical History PAST SURGICAL HISTORY Procedure Laterality Date COLONOSCOPY 05/13/2024 PAST SURGICAL HISTORY OF trigger finger procedure as a child TONSILLECTOMY HX TONSILLECTOMY PRIMARY/SECONDARY <AGE 14 Tonsillectomy Family History FAMILY HISTORY Adopted: Yes Problem Relation Age of Onset Diabetes Mother Thyroid Maternal Grandmother Patient Allergies ALLERGIES No Known Allergies Current Medications Current Outpatient Medications on File Prior to Visit Medication Sig cefdinir (OMNICEF) 300 mg capsule Take 1 capsule by mouth two times a day for 7 days. metroNIDAZOLE (FLAGYL) 500 mg tablet Take 1 tablet by mouth three times a day for 7 days. fexofenadine (MARY ALLERGY) 180 mg tablet Take 1 tablet by mouth once daily. loratadine (CLARITIN) 10 mg tablet Take 1 tablet by mouth once daily as needed (for allergy symptoms). fluticasone (FLONASE ALLERGY RELIEF) 50 mcg/actuation nasal spray Use 1 spray in each nostril once daily. citalopram (CELEXA) 40 mg tablet Take 1 tablet by mouth once daily. levothyroxine (SYNTHROID) 150 mcg tablet Take 1 tablet by mouth once daily. omeprazole (PRILOSEC) 20 mg capsule take 1 capsule by mouth once daily cholecalciferol, vitamin D3, (VITAMIN D3 ORAL) Take 2,000 mcg by mouth once daily. CPAP Initiate CPAP @ 7 cm of water with humidification. Mask (per patient preference) optional chin strap (if indicated) , filters, tubing, humidifier and lifetime supplies. multivit-min/folic/vit K/lycop (MEN'S 50 PLUS MULTIVITAMIN ORAL) Take 1 tablet by mouth once daily. vitamin b complex capsule Take 1 capsule by mouth once daily. No current facility-administered medications on file prior to visit. Social History Social History Tobacco Use Smoking status: Former Current packs/day: 0.00 Average packs/day: 1 pack/day for 30.0 years (30.0 ttl pk-yrs) Types: Cigarettes Start date: 07/29/1993 Quit date: 07/29/2023 Years since quittin.4 Smokeless tobacco: Never Tobacco comments: Pt has cut back to 1/4 pack daily. Vaps off and on Vaping Use Vaping status: Some Days Substances: Nicotine Substance Use Topics Alcohol use: Yes Comment: 3/4 beers per week Drug use: No Review of Symptoms REVIEW OF SYSTEMS SEE HPI EXAM: BP 117/66 Pulse 69 General Appearance: Well appearing, alert, in no acute distress, well-hydrated, well nourished.. Abdomen: Abdomen soft, non-tender. Bowel sounds normal. No masses, organomegaly. Health Maintenance List HIV Screening Never done Hepatitis B Vaccine(1 of 3 - 19+ 3-dose series) Never done Shingrix Vaccine(1 of 2) Never done Pneumococcal Vaccine: 50+(1 of 1 - PCV) Never done Lung Cancer Screening due on 06/08/2022 Medicare Advantage Annual Wellness Visit Never done Influenza Vaccine(Season Ended) due on 03/24/2025 Colorectal Cancer Screening due on 05/13/2025 Annual PCP Team Chronic Disease Visit due on 01/14/2026 Diabetes Screening due on 07/12/2027 DTaP,Tdap,Td Vaccine(3 - Td or Tdap) due on 08/28/2028 Lipid Screening due on 09/25/2028 Prostate Cancer Screening Discussion due on 05/03/2029 Hepatitis C Screening Completed Covid-19 Vaccine Completed ASSESSMENT/PLAN: 1. Blood in stool - ICD9: 578.1, ICD10: K92.1 (primary diagnosis) - COMPLETE BLOOD COUNT AND DIFFERENTIAL - IRON AND TIBC - FERRITIN 2. Diverticulitis - ICD9: 562.11, ICD10: K57.92 - IRON AND TIBC - FERRITIN 3. Fatigue, unspecified type - ICD9: 780.79, ICD10: R53.83 - BASIC METABOLIC PANEL - MAGNESIUM - VITAMIN B1 (THIAMINE), WHOLE BLOOD - VITAMIN B2/RIBOFLAV - VITAMIN B6/PYRIDOXIN - VITAMIN B12 4. Low energy - ICD9: 780.79, ICD10: R53.83 - BASIC METABOLIC PANEL - MAGNESIUM - VITAMIN B1 (THIAMINE), WHOLE BLOOD - VITAMIN B2/RIBOFLAV - VITAMIN B6/PYRIDOXIN - VITAMIN B12 5. Chronic bilateral low back pain with right-sided sciatica - ICD9: 338.29, 724.2, 724.3, ICD10: G89.29, M54.41 Chronic low back pain - CONSULT TO PAIN MGT Ino Esqueda APRN.REBRANDER documented in this encounter [facility] 01-14-2025 Telephone encount er Note Patient calling regarding medication question. Patient was seen in the office today for Diverticulitis and wants to know if he needs to take both antibiotics prescribed, Omnicef & Flagyl? He states that the last time he had Diverticulitis he was only prescribed one medication. Conferenced to [facility] code machine operator Chris at phone number ([phone]) for assistance. Informed patient that if unable to reach anyone in the office to call back tomorrow during normal business hours, verbalized understanding. [facility] 01-14-2025 Miscellaneous Notes Formattin g of this note might be different from the original. Patient calling regarding medication question. Patient was seen in the office today for Diverticulitis and wants to know if he needs to take both antibiotics prescribed, Omnicef & Flagyl? He states that the last time he had Diverticulitis he was only prescribed one medication. Conferenced to [facility] code machine operator Chris at phone number ([phone]) for assistance. Informed patient that if unable to reach anyone in the office to call back tomorrow during normal business hours, verbalized understanding. documented in this encounter [facility] 01-14-2025 Note HNO ID: [id number] Author: INO ESQUEDA APRN.REBRANDER Service: ? Author Type: Nurse Practitioner Type: Progress Notes Filed: 01/14/2025 10:42 Note Text: Chief Complaint Patient presents with: Derm Problem: Skin tags Diverticulitis HPI Good De Luna is a 59 year old male who presents here today for Above Complaints. Patient presents for LLQ pain and bleeding with BM. Has hx of Diverticulitis and large amounts of polyps on last colonoscopy. Patient also reports multiple skin tags to b/l axillary. Past medical history, appointments, medications, allergies reviewed. Previous Medical History PAST MEDICAL HISTORY Diagnosis Date Acid reflux Anxiety state, unspecified Arthritis Cancer (HCC) Cerebral palsy (HCC) Congenital diplegia (HCC) Diverticulitis GERD (gastroesophageal reflux disease) JODEE on CPAP Sleep apnea 09/22/2008 Spinal stenosis Unspecified hypothyroidism Previous Surgical History PAST SURGICAL HISTORY Procedure Laterality Date COLONOSCOPY 05/13/2024 PAST SURGICAL HISTORY OF trigger finger procedure as a child TONSILLECTOMY HX TONSILLECTOMY PRIMARY/SECONDARY Tonsillectomy Family History FAMILY HISTORY Adopted: Yes Problem Relation Age of Onset Diabetes Mother Thyroid Maternal Grandmother Patient Allergies ALLERGIES No Known Allergies Current Medications Current Outpatient Medications on File Prior to Visit Medication Sig fexofenadine (MARY ALLERGY) 180 mg tablet Take 1 tablet by mouth once daily. loratadine (CLARITIN) 10 mg tablet Take 1 tablet by mouth once daily as needed (for allergy symptoms). fluticasone (FLONASE ALLERGY RELIEF) 50 mcg/actuation nasal spray Use 1 spray in each nostril once daily. citalopram (CELEXA) 40 mg tablet Take 1 tablet by mouth once daily. levothyroxine (SYNTHROID) 150 mcg tablet Take 1 tablet by mouth once daily. omeprazole (PRILOSEC) 20 mg capsule take 1 capsule by mouth once daily cholecalciferol, vitamin D3, (VITAMIN D3 ORAL) Take 2,000 mcg by mouth once daily. CPAP Initiate CPAP @ 7 cm of water with humidification. Mask (per patient preference) optional chin strap (if indicated) , filters, tubing, humidifier and lifetime supplies. multivit-min/folic/vit K/lycop (MEN'S 50 PLUS MULTIVITAMIN ORAL) Take 1 tablet by mouth once daily. vitamin b complex capsule Take 1 capsule by mouth once daily. No current facility-administered medications on file prior to visit. Social History Social History Tobacco Use Smoking status: Former Current packs/day: 0.00 Average packs/day: 1 pack/day for 30.0 years (30.0 ttl pk-yrs) Types: Cigarettes Start date: 07/29/1993 Quit date: 07/29/2023 Years since quittin.4 Smokeless tobacco: Never Tobacco comments: Pt has cut back to 1/4 pack daily. Vaps off and on Vaping Use Vaping status: Some Days Substances: Nicotine Substance Use Topics Alcohol use: Yes Comment: 3/4 beers per week Drug use: No Review of Symptoms REVIEW OF SYSTEMS SEE HPI EXAM: BP 123/71 Pulse 68 Wt 101 kg (222 lb 10.6 oz) BMI 37.05 kg/m? General Appearance: Well appearing, alert, in no acute distress, well-hydrated, well nourished.. Skin: Skin color, texture, turgor normal, no suspicious rashes or lesions, skin tags to b/l axilla. Abdomen: Normal abdominal exam, Positive findings: obese, tenderness mild LLQ, hypoactive bowel sounds. Health Maintenance List HIV Screening Never done Hepatitis B Vaccine(1 of 3 - 19+ 3-dose series) Never done Shingrix Vaccine(1 of 2) Never done Pneumococcal Vaccine: 50+(1 of 1 - PCV) Never done Lung Cancer Screening due on 06/08/2022 Medicare Advantage Annual Wellness Visit Never done Influenza Vaccine(Season Ended) due on 03/24/2025 Colorectal Cancer Screening due on 05/13/2025 Annual PCP Team Chronic Disease Visit due on 12/13/2025 Diabetes Screening due on 07/12/2027 DTaP,Tdap,Td Vaccine(3 - Td or Tdap) due on 08/28/2028 Lipid Screening due on 09/25/2028 Prostate Cancer Screening Discussion due on 05/03/2029 Hepatitis C Screening Completed Covid-19 Vaccine Completed ASSESSMENT/PLAN: 1. Diverticulitis - ICD9: 562.11, ICD10: K57.92 - Follow up in 3 days for re-evaluation. Patient advised to go to ER if fever, chills, bleeding with no BM, or sharp shooting pain. - CEFDINIR 300 MG CAPSULE - METRONIDAZOLE 500 MG TABLET 2. Skin tags, multiple acquired - ICD9: 701.9, ICD10: L91.8 - CONSULT TO DERMATOLOGY Ino Esqueda APRN.[facility] 01-14-2025 History of Presen t illness Narrative Chief Complaint Patient presents with: Derm Problem: Skin tags Diverticulitis HPI Good De Luna is a 59 year old male who presents here today for Above Complaints. Patient presents for LLQ pain and bleeding with BM. Has hx of Diverticulitis and large amounts of polyps on last colonoscopy. Patient also reports multiple skin tags to b/l axillary. Past medical history, appointments, medications, allergies reviewed. Previous Medical History PAST MEDICAL HISTORY Diagnosis Date Acid reflux Anxiety state, unspecified Arthritis Cancer (HCC) Cerebral palsy (HCC) Congenital diplegia (HCC) Diverticulitis GERD (gastroesophageal reflux disease) JODEE on CPAP Sleep apnea 09/22/2008 Spinal stenosis Unspecified hypothyroidism Previous Surgical History PAST SURGICAL HISTORY Procedure Laterality Date COLONOSCOPY 05/13/2024 PAST SURGICAL HISTORY OF trigger finger procedure as a child TONSILLECTOMY HX TONSILLECTOMY PRIMARY/SECONDARY <AGE 14 Tonsillectomy Family History FAMILY HISTORY Adopted: Yes Problem Relation Age of Onset Diabetes Mother Thyroid Maternal Grandmother Patient Allergies ALLERGIES No Known Allergies Current Medications Current Outpatient Medications on File Prior to Visit Medication Sig fexofenadine (MARY ALLERGY) 180 mg tablet Take 1 tablet by mouth once daily. loratadine (CLARITIN) 10 mg tablet Take 1 tablet by mouth once daily as needed (for allergy symptoms). fluticasone (FLONASE ALLERGY RELIEF) 50 mcg/actuation nasal spray Use 1 spray in each nostril once daily. citalopram (CELEXA) 40 mg tablet Take 1 tablet by mouth once daily. levothyroxine (SYNTHROID) 150 mcg tablet Take 1 tablet by mouth once daily. omeprazole (PRILOSEC) 20 mg capsule take 1 capsule by mouth once daily cholecalciferol, vitamin D3, (VITAMIN D3 ORAL) Take 2,000 mcg by mouth once daily. CPAP Initiate CPAP @ 7 cm of water with humidification. Mask (per patient preference) optional chin strap (if indicated) , filters, tubing, humidifier and lifetime supplies. multivit-min/folic/vit K/lycop (MEN'S 50 PLUS MULTIVITAMIN ORAL) Take 1 tablet by mouth once daily. vitamin b complex capsule Take 1 capsule by mouth once daily. No current facility-administered medications on file prior to visit. Social History Social History Tobacco Use Smoking status: Former Current packs/day: 0.00 Average packs/day: 1 pack/day for 30.0 years (30.0 ttl pk-yrs) Types: Cigarettes Start date: 07/29/1993 Quit date: 07/29/2023 Years since quittin.4 Smokeless tobacco: Never Tobacco comments: Pt has cut back to 1/4 pack daily. Vaps off and on Vaping Use Vaping status: Some Days Substances: Nicotine Substance Use Topics Alcohol use: Yes Comment: 3/4 beers per week Drug use: No Review of Symptoms REVIEW OF SYSTEMS SEE HPI EXAM: BP 123/71 Pulse 68 Wt 101 kg (222 lb 10.6 oz) BMI 37.05 kg/m General Appearance: Well appearing, alert, in no acute distress, well-hydrated, well nourished.. Skin: Skin color, texture, turgor normal, no suspicious rashes or lesions, skin tags to b/l axilla. Abdomen: Normal abdominal exam, Positive findings: obese, tenderness mild LLQ, hypoactive bowel sounds. Health Maintenance List HIV Screening Never done Hepatitis B Vaccine(1 of 3 - 19+ 3-dose series) Never done Shingrix Vaccine(1 of 2) Never done Pneumococcal Vaccine: 50+(1 of 1 - PCV) Never done Lung Cancer Screening due on 06/08/2022 Medicare Advantage Annual Wellness Visit Never done Influenza Vaccine(Season Ended) due on 03/24/2025 Colorectal Cancer Screening due on 05/13/2025 Annual PCP Team Chronic Disease Visit due on 12/13/2025 Diabetes Screening due on 07/12/2027 DTaP,Tdap,Td Vaccine(3 - Td or Tdap) due on 08/28/2028 Lipid Screening due on 09/25/2028 Prostate Cancer Screening Discussion due on 05/03/2029 Hepatitis C Screening Completed Covid-19 Vaccine Completed ASSESSMENT/PLAN: 1. Diverticulitis - ICD9: 562.11, ICD10: K57.92 - Follow up in 3 days for re-evaluation. Patient advised to go to ER if fever, chills, bleeding with no BM, or sharp shooting pain. - CEFDINIR 300 MG CAPSULE - METRONIDAZOLE 500 MG TABLET 2. Skin tags, multiple acquired - ICD9: 701.9, ICD10: L91.8 - CONSULT TO DERMATOLOGY Ino Esqueda APRN.REBRANDER documented in this encounter [facility] 01-10-2025 Telephone encount er Note Pt notified. Laura Whaley MA [facility] 01-10-2025 Miscellaneous Notes Formattin g of this note might be different from the original. Pt notified. Laura Whaley MA OK to switch to Mary as ordered Mathew Cobian MD Pt reports he is struggling with allergies. States he was tested and has allergies to everything. Reports no Shortness of Breath, no headache. Has drainage that bothers his ears. No ear pain. Reports the claritin really does not help with his allergies. Asking if pcp can order something different. Teena Mcneil. documented in this encounter [facility] 01-10-2025 Telephone encount er Note OK to switch to Mary as ordered Mathew Cobian MD [facility] 01-10-2025 Telephone encount er Note Pt reports he is struggling with allergies. States he was tested and has allergies to everything. Reports no Shortness of Breath, no headache. Has drainage that bothers his ears. No ear pain. Reports the claritin really does not help with his allergies. Asking if pcp can order something different. Teena Mcneil. [facility] 12-25-2024 Note HNO ID: [id number] Author: GREYSON ELLSWORTH APRN.REBRANDER Service: ? Author Type: Nurse Practitioner Type: Progress Notes Filed: 12/25/2024 14:13 Note Text: [facility] Subjective Good De Luna is a 59 year old male. Patient presents with: Sore Throat: Possible strep throat started this morning Sore Throat Associated symptoms include congestion and ear pain. Pertinent negatives include no coughing, headaches or shortness of breath. Patient is a 59 year old male that presents with sinus congestion, bilateral ear pain. He did have an exposure to strep, but also has a history of allergic rhinitis. Review of Systems Constitutional: Negative for chills and fever. HENT: Positive for congestion, ear pain and sore throat. Respiratory: Negative for cough, shortness of breath and wheezing. Cardiovascular: Negative for chest pain. Neurological: Negative for headaches. Objective BP 128/70 Pulse 67 Temp 36.9 ?C (98.4 ?F) Resp 20 Wt 99.5 kg (219 lb 5.7 oz) SpO2 98% BMI 36.50 kg/m? PAST MEDICAL HISTORY Diagnosis Date Acid reflux Anxiety state, unspecified Arthritis Cancer (HCC) Cerebral palsy (HCC) Congenital diplegia (HCC) Diverticulitis GERD (gastroesophageal reflux disease) JODEE on CPAP Sleep apnea 09/22/2008 Spinal stenosis Unspecified hypothyroidism PAST SURGICAL HISTORY Procedure Laterality Date COLONOSCOPY 05/13/2024 PAST SURGICAL HISTORY OF trigger finger procedure as a child TONSILLECTOMY HX TONSILLECTOMY PRIMARY/SECONDARY Tonsillectomy ALLERGIES Patient has no known allergies. MEDICATIONS citalopram (CELEXA) 40 mg tablet Take 1 tablet by mouth once daily. levothyroxine (SYNTHROID) 150 mcg tablet Take 1 tablet by mouth once daily. omeprazole (PRILOSEC) 20 mg capsule take 1 capsule by mouth once daily cholecalciferol, vitamin D3, (VITAMIN D3 ORAL) Take 2,000 mcg by mouth once daily. CPAP Initiate CPAP @ 7 cm of water with humidification. Mask (per patient preference) optional chin strap (if indicated) , filters, tubing, humidifier and lifetime supplies. multivit-min/folic/vit K/lycop (MEN'S 50 PLUS MULTIVITAMIN ORAL) Take 1 tablet by mouth once daily. vitamin b complex capsule Take 1 capsule by mouth once daily. loratadine (CLARITIN) 10 mg tablet Take 1 tablet by mouth once daily as needed (for allergy symptoms). fluticasone (FLONASE ALLERGY RELIEF) 50 mcg/actuation nasal spray Use 1 spray in each nostril once daily. FAMILY HISTORY Adopted: Yes Problem Relation Age of Onset Diabetes Mother Thyroid Maternal Grandmother Social History Tobacco Use Smoking status: Former Current packs/day: 0.00 Average packs/day: 1 pack/day for 30.0 years (30.0 ttl pk-yrs) Types: Cigarettes Start date: 07/29/1993 Quit date: 07/29/2023 Years since quittin.4 Smokeless tobacco: Never Tobacco comments: Pt has cut back to 1/4 pack daily. Vaps off and on Vaping Use Vaping status: Some Days Substances: Nicotine Substance Use Topics Alcohol use: Yes Comment: 3/4 beers per week Drug use: No Physical Exam Vitals and nursing note reviewed. Constitutional: Appearance: Normal appearance. HENT: Right Ear: Ear canal and external ear normal. A middle ear effusion is present. Left Ear: A middle ear effusion is present. Mouth/Throat: Pharynx: Uvula midline. Posterior oropharyngeal erythema and postnasal drip present. No oropharyngeal exudate. Tonsils: No tonsillar exudate or tonsillar abscesses. Lymphadenopathy: Cervical: No cervical adenopathy. Neurological: Mental Status: He is alert. {ASSESSMENT/PLAN: 1. Sore throat - ICD9: 462, ICD10: J02.9 (primary diagnosis) - Group A strep molecular testing negative - Discussed supportive care treatment with fluids, rest and analgesia. - The patient should follow up in 3-5 days if symptoms persist or worsen - STREP A MOLECULAR (POC) 2. Viral illness - ICD9: 079.99, ICD10: B34.9 - Discussed viral etiology and rationale for treatment. - Symptomatic treatment with prn analgesia - Supportive care with fluids and rest 3. Seasonal allergic rhinitis, unspecified trigger - ICD9: 477.9, ICD10: J30.2 -Started Flonase and Claritin follow up with pcp. Greyson Ellsworth APRN.REBRANDER History and Record Review Clinical information obtained from an independent historian. History obtained from or confirmed by: family member. External record(s) reviewed: prior outpatient record. Findings from review of outpatient records: Previous medical history Differential Diagnoses - allergic rhinitis is more likely for the following reason(s): suggested by HANDP - Strep is less likely for the following reason(s): laboratory studies not suggestive and no evidence on imaging - STATISTICAL TYPIST Disposition The patient was discharged. OTC Medications were advised: Tylenol as needed [facility] 12-25-2024 History of Presen t illness Narrative [facility] Subjective Good De Luna is a 59 year old male. Patient presents with: Sore Throat: Possible strep throat started this morning Sore Throat Associated symptoms include congestion and ear pain. Pertinent negatives include no coughing, headaches or shortness of breath. Patient is a 59 year old male that presents with sinus congestion, bilateral ear pain. He did have an exposure to strep, but also has a history of allergic rhinitis. Review of Systems Constitutional: Negative for chills and fever. HENT: Positive for congestion, ear pain and sore throat. Respiratory: Negative for cough, shortness of breath and wheezing. Cardiovascular: Negative for chest pain. Neurological: Negative for headaches. Objective BP 128/70 Pulse 67 Temp 36.9 C (98.4 F) Resp 20 Wt 99.5 kg (219 lb 5.7 oz) SpO2 98% BMI 36.50 kg/m PAST MEDICAL HISTORY Diagnosis Date Acid reflux Anxiety state, unspecified Arthritis Cancer (HCC) Cerebral palsy (HCC) Congenital diplegia (HCC) Diverticulitis GERD (gastroesophageal reflux disease) JODEE on CPAP Sleep apnea 09/22/2008 Spinal stenosis Unspecified hypothyroidism PAST SURGICAL HISTORY Procedure Laterality Date COLONOSCOPY 05/13/2024 PAST SURGICAL HISTORY OF trigger finger procedure as a child TONSILLECTOMY HX TONSILLECTOMY PRIMARY/SECONDARY <AGE 14 Tonsillectomy ALLERGIES Patient has no known allergies. MEDICATIONS citalopram (CELEXA) 40 mg tablet Take 1 tablet by mouth once daily. levothyroxine (SYNTHROID) 150 mcg tablet Take 1 tablet by mouth once daily. omeprazole (PRILOSEC) 20 mg capsule take 1 capsule by mouth once daily cholecalciferol, vitamin D3, (VITAMIN D3 ORAL) Take 2,000 mcg by mouth once daily. CPAP Initiate CPAP @ 7 cm of water with humidification. Mask (per patient preference) optional chin strap (if indicated) , filters, tubing, humidifier and lifetime supplies. multivit-min/folic/vit K/lycop (MEN'S 50 PLUS MULTIVITAMIN ORAL) Take 1 tablet by mouth once daily. vitamin b complex capsule Take 1 capsule by mouth once daily. loratadine (CLARITIN) 10 mg tablet Take 1 tablet by mouth once daily as needed (for allergy symptoms). fluticasone (FLONASE ALLERGY RELIEF) 50 mcg/actuation nasal spray Use 1 spray in each nostril once daily. FAMILY HISTORY Adopted: Yes Problem Relation Age of Onset Diabetes Mother Thyroid Maternal Grandmother Social History Tobacco Use Smoking status: Former Current packs/day: 0.00 Average packs/day: 1 pack/day for 30.0 years (30.0 ttl pk-yrs) Types: Cigarettes Start date: 07/29/1993 Quit date: 07/29/2023 Years since quittin.4 Smokeless tobacco: Never Tobacco comments: Pt has cut back to 1/4 pack daily. Vaps off and on Vaping Use Vaping status: Some Days Substances: Nicotine Substance Use Topics Alcohol use: Yes Comment: 3/4 beers per week Drug use: No Physical Exam Vitals and nursing note reviewed. Constitutional: Appearance: Normal appearance. HENT: Right Ear: Ear canal and external ear normal. A middle ear effusion is present. Left Ear: A middle ear effusion is present. Mouth/Throat: Pharynx: Uvula midline. Posterior oropharyngeal erythema and postnasal drip present. No oropharyngeal exudate. Tonsils: No tonsillar exudate or tonsillar abscesses. Lymphadenopathy: Cervical: No cervical adenopathy. Neurological: Mental Status: He is alert. {ASSESSMENT/PLAN: 1. Sore throat - ICD9: 462, ICD10: J02.9 (primary diagnosis) - Group A strep molecular testing negative - Discussed supportive care treatment with fluids, rest and analgesia. - The patient should follow up in 3-5 days if symptoms persist or worsen - STREP A MOLECULAR (POC) 2. Viral illness - ICD9: 079.99, ICD10: B34.9 - Discussed viral etiology and rationale for treatment. - Symptomatic treatment with prn analgesia - Supportive care with fluids and rest 3. Seasonal allergic rhinitis, unspecified trigger - ICD9: 477.9, ICD10: J30.2 -Started Flonase and Claritin follow up with pcp. Greyson Ellsworth APRN.REBRANDER History and Record Review Clinical information obtained from an independent historian. History obtained from or confirmed by: family member. External record(s) reviewed: prior outpatient record. Findings from review of outpatient records: Previous medical history Differential Diagnoses - allergic rhinitis is more likely for the following reason(s): suggested by H&P - Strep is less likely for the following reason(s): laboratory studies not suggestive and no evidence on imaging - STATISTICAL TYPIST Disposition The patient was discharged. OTC Medications were advised: Tylenol as needed documented in this encounter [facility] 12-25-2024 Telephone encount er Note Patient calls for sore throat and strep exposure. Nurse triage recommends contact PCP office. Offered appointment for evaluation. Patient not able to come in for the times available. Patient will have daughter take him to for evaluation when it works for her schedule. Reason for Disposition [1] Exposure to family member (or spouse or boyfriend/girlfriend) with test-proven strep AND [2] within last 10 days Answer Assessment - Initial Assessment Questions 1. ONSET: Yesterday 2. SEVERITY: - MODERATE (4-7): Interferes with eating some solids and normal activities. 3. STREP EXPOSURE: Exposure to grandson visiting within the last week and he has tested positive to strep. 4. VIRAL SYMPTOMS: No symptoms of a cold, such as a runny nose, cough, hoarse voice or red eyes. 5. FEVER:No 6. PUS ON THE TONSILS: No 7. OTHER SYMPTOMS: No difficulty breathing, headache, rash Protocols used: Sore [id number] [facility] 12-25-2024 Miscellaneous Notes Formattin g of this note might be different from the original. Patient calls for sore throat and strep exposure. Nurse triage recommends contact PCP office. Offered appointment for evaluation. Patient not able to come in for the times available. Patient will have daughter take him to for evaluation when it works for her schedule. Reason for Disposition [1] Exposure to family member (or spouse or boyfriend/girlfriend) with test-proven strep AND [2] within last 10 days Answer Assessment - Initial Assessment Questions 1. ONSET: Yesterday 2. SEVERITY: - MODERATE (4-7): Interferes with eating some solids and normal activities. 3. STREP EXPOSURE: Exposure to grandson visiting within the last week and he has tested positive to strep. 4. VIRAL SYMPTOMS: No symptoms of a cold, such as a runny nose, cough, hoarse voice or red eyes. 5. FEVER:No 6. PUS ON THE TONSILS: No 7. OTHER SYMPTOMS: No difficulty breathing, headache, rash Protocols used: Sore [id number] documented in this encounter [facility] 12-13-2024 Note HNO ID: [id number] Author: MATHEW COBIAN MD Service: ? Author Type: Physician Type: Progress Notes Filed: 12/13/2024 15:20 Note Text: Chief Complaint Patient presents with: Ingrown Toenail: HPI Good De Luna is a 59 year old male who presents here today for nail problem. Pt states his left great toe nail is coming off, part of the nail is off. Has toe nail fungus. No injury to the toe. Past medical history, appointments, medications, allergies reviewed. Previous Medical History PAST MEDICAL HISTORY Diagnosis Date Acid reflux Anxiety state, unspecified Arthritis Cancer (HCC) Cerebral palsy (HCC) Congenital diplegia (HCC) Diverticulitis GERD (gastroesophageal reflux disease) JODEE on CPAP Sleep apnea 09/22/2008 Spinal stenosis Unspecified hypothyroidism Previous Surgical History PAST SURGICAL HISTORY Procedure Laterality Date COLONOSCOPY 05/13/2024 PAST SURGICAL HISTORY OF trigger finger procedure as a child TONSILLECTOMY HX TONSILLECTOMY PRIMARY/SECONDARY Tonsillectomy Family History FAMILY HISTORY Adopted: Yes Problem Relation Age of Onset Diabetes Mother Thyroid Maternal Grandmother Patient Allergies ALLERGIES No Known Allergies Current Medications Current Outpatient Medications on File Prior to Visit Medication Sig citalopram (CELEXA) 40 mg tablet Take 1 tablet by mouth once daily. levothyroxine (SYNTHROID) 150 mcg tablet Take 1 tablet by mouth once daily. omeprazole (PRILOSEC) 20 mg capsule take 1 capsule by mouth once daily cholecalciferol, vitamin D3, (VITAMIN D3 ORAL) Take 2,000 mcg by mouth once daily. CPAP Initiate CPAP @ 7 cm of water with humidification. Mask (per patient preference) optional chin strap (if indicated) , filters, tubing, humidifier and lifetime supplies. multivit-min/folic/vit K/lycop (MEN'S 50 PLUS MULTIVITAMIN ORAL) Take 1 tablet by mouth once daily. vitamin b complex capsule Take 1 capsule by mouth once daily. No current facility-administered medications on file prior to visit. Social History Social History Tobacco Use Smoking status: Former Current packs/day: 0.00 Average packs/day: 1 pack/day for 30.0 years (30.0 ttl pk-yrs) Types: Cigarettes Start date: 07/29/1993 Quit date: 07/29/2023 Years since quittin.3 Smokeless tobacco: Never Tobacco comments: Pt has cut back to 1/4 pack daily. Vaps off and on Vaping Use Vaping status: Some Days Substances: Nicotine Substance Use Topics Alcohol use: Yes Comment: 3/4 beers per week Drug use: No EXAM: BP 120/78 Pulse 70 Resp 16 Wt 102.1 kg (225 lb 1.4 oz) BMI 37.46 kg/m? General Appearance: Well appearing, alert, in no acute distress, well-hydrated, well nourished.. Left foot: Great toe nail thickened and cut back almost to nail bed.. Health Maintenance List HIV Screening Never done Hepatitis B Vaccine(1 of 3 - 19+ 3-dose series) Never done Shingrix Vaccine(1 of 2) Never done Pneumococcal Vaccine: 50+(1 of 1 - PCV) Never done Lung Cancer Screening due on 06/08/2022 Influenza Vaccine(Season Ended) due on 03/24/2025 Colorectal Cancer Screening due on 05/13/2025 Annual PCP Team Chronic Disease Visit due on 07/25/2025 Diabetes Screening due on 07/12/2027 DTaP,Tdap,Td Vaccine(3 - Td or Tdap) due on 08/28/2028 Lipid Screening due on 09/25/2028 Prostate Cancer Screening Discussion due on 05/03/2029 Hepatitis C Screening Completed Covid-19 Vaccine Completed Data reviewed none ASSESSMENT/PLAN: 1. Fungal infection of toenail - ICD9: 110.1, ICD10: B35.1 - CONSULT TO PODIATRY I agree with the Chief Complaint, ROS, and Past Histories independently gathered by the clinical faculty support coordinator and the remaining scribed note accurately describes my personal service to the patient. Medical Decision Making: Problems: Low: Acute, uncomplicated illness or injury Risk: Low: Low risk from testing/treatment Medical Decision Making Level: 3 - Low Mathew Cobian MD The documentation for this note was completed by Laura Whaley MA acting as scribe for Mathew Cobian MD. December 13, 2024 11:42 AM. Laura Whaley MA [facility] 11-05-2024 Discharge summary [facility] 11-05-2024 Discharge summary Note Date/Time November 05, 2024 8:24pm [facility] Medical Records Department [address] [place] [id number] Emergency Department Summary 11/05/24 MR#: [id number] Acct: [id number] Name: GOOD DE LUNA Rep #:[id number] : 1965 59 From: Salvatore Watkins MD PCP: Dr. Mathew Cobian MD Status:KS E ER Location: ED HPI History of Present Illness Chief Complaint: Dental Narrative Narrative: 59-year-old male past medical history of hypothyroidism, non-smoker, presents with half a day of hard palate/dental pain. He denies any fevers or chills. Heis nauseated but has not vomited. He states that he feels a lump behind his front teeth, mainly on the left whenever he runs his tongue across that. This been going on for about a day. Today, he states he ran his finger over the areaand brown liquid came out on his finger. He states that the area underneath hisnose and behind his front teeth hurts. No exacerbating or alleviating factors. He states that he went to a dentist 6 months ago, and everything appeared normal. [facility] Medical History Alcohol abuse Anxiety History of trigger finger Alcohol abuse Chronic pain Smoker CPAP (continuous positive airway pressure) dependence Sleep apnea Cerebral palsy Home Medications ?Medication ?Instructions ?Recorded ?Last Taken ?Type omeprazole 20 mg capsule,delayed 20 mg PO DAILY GERD 0 02/05/19 04/23/24 History release multivitamin 1 tab PO DAILY supplement 04/22/24 History acetaminophen 500 mg tablet 1,000 mg (2 x 500 mg) PO Q 6H PRN 12/23/20 Unknown Rx PRN Pain Score 1-5 #0 tabs citalopram 40 mg tablet 40 mg PO DAILY #0 tabs 12/2304/23/24 Rx lorazepam 1 mg tablet 1 mg PO Q8H PRN PRN Anxiety 02/27/22 04/22/24 History vitamin B complex 1 tab PO DAILY 02/27/2203/26 History oxycodone-acetaminophen 5 mg-325 1 tab PO Q6H PRN pain 3 days #12 07/22/24 Unknown Rx mg tablet (Endocet) tabs clindamycin HCl 300 mg capsule 300 mg PO Q6H #40 CAPSU LES 11/05/24 Unknown Rx (Cleocin HCl) levothyroxine 150 mcg tablet 150 mcg PO DAILY 11/05/24 Unknown History Allergy/AdvReac Type Severity Reaction Status Date / Time No Known Allergies Allergy Verified 11/05/24 18:14 Family History Other Cancer Diabetes Surgical History History of tonsillectomy H/O hand surgery Social History household members: other details: Roommate who does not help him cook or clean. Smoking Status: Current every day smoker tobacco type: cigarettes and e-cigarettes alcohol intake: current alcohol intake frequency: 3 or more drinks per day Alcohol type: hard liquor ROS ROS ED ROS Narrative Review of systems positive for pain on the roof of his mouth with lump behind front teeth. No fevers or chills. Positive nausea but no vomiting. Positive pain underneath nose and behind front teeth. EXAM Physical Exam Narrative Exam Narrative: Afebrile. Vital signs noted. Nontoxic-appearing. Cardiovascular examination reveals bradycardia. Lungs clear to auscultation bilaterally. Abdomen soft nontender with positive bowel sounds. Neurological examination nonfocal and nonlateralizing. Inspection of the mouth does not reveal noticeable dental caries. There is no fluctuance of the gingiva. No fluctuance of the hard palate. Behind his teeth there are a few rugae on the hard palate, but no palpable distention. Airway is patent, no drooling or trismus. No Kedar angina. Const Vital Signs: 11/05/24 18:14 Temperature 98 F Temperature Source Oral Pulse Rate 50 L Respiratory Rate 16 Blood Pressure 155/99 H Blood Pressure Mean 117 Pulse Ox 99 Oxygen Delivery Method Room Air MDM MDM MDM Narrative Medical decision making narrative: Differential diagnosis includes but not limited to gingivitis versus hard palateabscess versus dental abscess. I do not feel he requires any laboratory work orimaging. He is afebrile and hemodynamically stable. He was referred to both ENT and back to his dentist. I do feel antibiotics are indicated. He was started on his first dose of clindamycin, and prescription written to take 4 times a day for 10 days. I stressed the importance of follow-up with either ENTor his dentist within the next 3 to 5 days if not improving. Return instructions to the emergency department were reviewed. Disposition is discharged home in stable condition. History & Record Review Discussion w/independent historian: Patient Discharge Plan Triage Chief Complaint: Dental ED Provider: Salvatore Watkins Dx/Rx/DC Orders Clinical Impression: Hard palate abscess, Mouth pain Instructions: ED Abscess Antibiotic Treatment Only, ED Dental Abscess, ED Pain,Acute, Uncertain Cause Prescriptions: New clindamycin HCl [Cleocin HCl] 300 mg capsule 300 mg PO Q6H Qty: 40 0RF No Action omeprazole 20 MG capsule 20 mg PO DAILY multivitamin Tablet 1 tab PO DAILY acetaminophen 500 mg Tablet 1,000 mg PO Q6H PRN PRN (Reason: Pain Score 1-5) Qty: 0 0RF citalopram 40 mg Tablet 40 mg PO DAILY Qty: 0 0RF vitamin B complex Tablet 1 tab PO DAILY lorazepam 1 mg tablet 1 mg PO Q8H PRN PRN (Reason: Anxiety) oxycodone-acetaminophen [Endocet] 5-325 mg tablet 1 tab PO Q6H PRN (Reason: pain) 3 Days Qty: 12 0RF levothyroxine 150 mcg tablet 150 mcg PO DAILY Primary Care Provider: Mathew Cobian Referrals: Sanjay Ferreira MD [Med Staff - Active Staff] - 3-5 Days if not improving Mathew Cobian MD [Primary Care Provider] - Activity Restrictions/Additional Instructions: Antibiotics as directed. Return with fever, increased pain or swelling of hard palate, new or worsening symptoms. Follow-up with ENT or a dentist in the next 3 to 5 days if not improving. Print Language: Brazilian Disposition Disposition: Home, Self Care What to do if you have Problems For any increased pain, shortness of breath, bleeding, nausea or vomiting, chestpain, or any unexpected problems, contact your Primary Care Provider. Call [facility] ([phone]) or report to the closest Emergency Room. Call 911 if necessary. 11/05/242023 <Electronically signed by Salvatore Watkins MD> Cosigner Signature (if applicable): CC: Dr. Mathew Cobian MD ~ Signed [facility] Work Phone: [phone] 334-737304-15-2025 Hospital Discharge instructions Additional Instructions Antibiotics as directed. Return with fever, increased pain or swelling of hard palate, new or worsening symptoms. Follow-up with ENT or a dentist in the next 3 to 5 days if not improving.[facility] Work Phone: [phone]) 147-301404-11-2025 Telephone encounter Note* Telephone Encounter - Juju Alcala MA - 11/01/2024 8:20 AM EDT Left message to call office to advise patient of below. Juju Alcala MA [facility]04-11-2025 Miscellaneous Notes* Telephone Encounter - Juju Alcala MA - 11/01/2024 8:20 AM EDT Left message to call office to advise patient of below. Juju Alcala MA * Telephone Encounter - Renard Farias MA - 10/31/2024 12:36 PM EDT Left message on phone to return call to office. Renard Farias MA Per : Raphael Calderon Jr., MD Mri prostate shows no lesions Good Fu 6 months [facility] Telephone encounter Note * Telephone Encounter - Renard Farias MA - 10/31/2024 12:36 PM EDT Left message on phone to return call to office. Renard Farias MA Per : Raphael Calderon Jr., MD Mri prostate shows no lesions Good Fu 6 months [facility]04-07-2025 History of Present illness Narrative* Yanet Tong RT(R) - 10/28/2024 10:20 AM EDT Radiology Service Progress Note DATE OF SERVICE: October 28, 2024 TIME: 11:05 AM PATIENT IDENTITY VERIFICATION COMPLETED USING TWO (2) STANDARD IDENTIFIERS: Name and Date of confirmed by patient verbally and Name and Date of confirmed by identification band. FALL SCREENING: Has the patient had 2 falls in the last year or 1 fall with injury or currently using an Ambulatory Assistive Device (Walker, Cane, Wheelchair, Crutches, etc.)? Yes, Patient High Riskfor Falls What interventions were put in place to prevent falls during this visit? Instructed Patient to Callfor Help if Needed, Offered Assistance with Transfers/Clothing, Instructed Patient to Remain Seated(Not on Exam Table) Until Exam, Increased Observations by Caregivers, Escorted to/from Restroom, and wheelchair used, assisted with walking PATIENT GENDER DATA: Assigned male at PATIENT RELEVANT IMPLANT DATA REVIEWED: Yes PATIENT PRESENTS WITH AN IMPLANTABLE OR ATTACHED LANGUAGE AND LITERATURE DIVISION CHAIR: No ALLERGIES: Reviewed and unchanged CONTRAST ALLERGY: NO. EXAM: MRI - CONTRAST TYPE: GROUP II PERIPHERAL IV DATA: Inpatient - refer to [facility] documentation RADIOLOGY DEPARTMENT: MR; Exam(s) Completed: Body: Prostate SIGNATURE: RT Amanda(Maria Del Rosario) PATIENT NAME: Good De Luna DATE: October 28, 2024 TIME: 11:05 AM [facility]25 NoteHNO ID: [id number] Author: YANET TONG RT (R) Service: Radiology Author Type: Technologist Type: Progress Notes Filed: 10/28/2024 11:06 Note Text: Radiology Service Progress Note DATE OF SERVICE: October 28, 2024 TIME: 11:05 AM PATIENT IDENTITY VERIFICATION COMPLETED USING TWO (2) STANDARD IDENTIFIERS: Name and Date of confirmed by patient verbally and Name and Date of confirmed by identification band. FALL SCREENING: Has the patient had 2 falls in the last year or 1 fall with injury or currently using an Ambulatory Assistive Device (Walker, Cane, Wheelchair, Crutches, etc.)? Yes, Patient High Risk for Falls What interventions were put in place to prevent falls during this visit? Instructed Patient to Call for Help if Needed, Offered Assistance with Transfers/Clothing, Instructed Patient to Remain Seated (Not on Exam Table) Until Exam, Increased Observations by Caregivers, Escorted to/from Restroom, and wheelchair used, assisted with walking PATIENT GENDER DATA: Assigned male at PATIENT RELEVANT IMPLANT DATA REVIEWED: Yes PATIENT PRESENTS WITH AN IMPLANTABLE OR ATTACHED LANGUAGE AND LITERATURE DIVISION CHAIR: No ALLERGIES: Reviewed and unchanged CONTRAST ALLERGY: NO. EXAM: MRI - CONTRAST TYPE: GROUP II PERIPHERAL IV DATA: Inpatient - refer to [facility] documentation RADIOLOGY DEPARTMENT: MR; Exam(s) Completed: Body: Prostate SIGNATURE: NICKY Patel) PATIENT NAME: Good De Luna DATE: October 28, 2024 TIME: 11:05 [facility]02-18-2025 Telephone encounter Note* Telephone Encounter - Bibi Liu - 09/10/2024 10:57 AM EST Nurse Froilan spoke to pt and he is scheduled for an MRI and will make a new follow up. Pt is in agreement with this. [facility]02-18-2025 Miscellaneous Notes* Telephone Encounter - Bibi Liu - 09/10/2024 10:57 AM EST Nurse Froilan spoke to pt and he is scheduled for an MRI and will make a new follow up. Pt is in agreement with this. * Telephone Encounter - Bibi Liu - 09/10/2024 9:41 AM EST Pt can't make his 11:10 appt today due to loss of transportation, his aide is his daughter and her children are sick. Pt is asking if there is any way he can have a virtual visit due to his immobility and dependence on transport. Thank you. [facility] Telephone encounter Note * Telephone Encounter - Bibi Liu - 09/10/2024 9:41 AM EST Pt can't make his 11:10 appt today due to loss of transportation, his aide is his daughter and her children are sick. Pt is asking if there is any way he can have a virtual visit due to his immobility and dependence on transport. Thank you. [facility]02-03-2025 NoteHNO ID: [id number] Author: TAMMIE BENITEZ PA-C Service: ? Author Type: Physician Data Conversion Operator Type: Progress Notes Filed: 08/26/2024 14:11 Note Text: Tammie Benitez PA-C Department of Orthopaedics Orthopaedics [address] [place] [address] Dept: [phone] Dept August 26, 2024 CHIEF COMPLAINT: Established Patient and Follow Up of the Right Ankle. ASSESSMENT: S82.831D Other closed fracture of proximal end of right fibula with routine healing, subsequent encounter (primary encounter diagnosis) SUMMARY/PLAN: Patient presents with an injury to his right leg which occurred about 1 month ago. The patient was returning from his kitchen to enter his bedroom when his leg gave out. He had a proximal fibula fracture. The patient has cerebral palsy and ambulates with the assistance of a walker. Since his injury his pain has improved quite a bit, still having some lateral calf aching. Pain today is a 4 out of 10. Repeat x-rays show evidence of healing. We discussed having him continue with activity as tolerated. He can follow-up on as-needed basis. Exam: No tenderness palpation along the proximal fibula, no edema surrounding the proximal fibula. No ecchymosis is noted. Imaging: See Epic Mr. Good De Luna was advised as to contrast therapies and/or to take analgesics/anti-inflammatories as needed and all contraindications were reviewed. Supporting Information Below: Medications: Current Outpatient Medications Medication Sig citalopram (CELEXA) 40 mg tablet Take 1 tablet by mouth once daily. levothyroxine (SYNTHROID) 150 mcg tablet Take 1 tablet by mouth once daily. omeprazole (PRILOSEC) 20 mg capsule take 1 capsule by mouth once daily cholecalciferol, vitamin D3, (VITAMIN D3 ORAL) Take 2,000 mcg by mouth once daily. multivit-min/folic/vit K/lycop (MEN'S 50 PLUS MULTIVITAMIN ORAL) Take 1 tablet by mouth once daily. vitamin b complex capsule Take 1 capsule by mouth once daily. CPAP Initiate CPAP @ 7 cm of water with humidification. Mask (per patient preference) optional chin strap (if indicated) , filters, tubing, humidifier and lifetime supplies. No current facility-administered medications for this visit. Allergies: Patient has no known allergies. This note was partially generated using [employer] voice recognition system, and there may be some incorrect words, spellings, and punctuation that were not noted in checking the note before saving. [facility] History of Present illness Narrative* Tammie Benitez PA-C - 08/26/2024 2:08 PM EST Tammie Benitez PA-C Department of Orthopaedics Orthopaedics [address] [facility] [address] Dept: [phone] Dept August 26, 2024 CHIEF COMPLAINT: Established Patient and Follow Up of the Right Ankle. ASSESSMENT: S82.831D Other closed fracture of proximal end of right fibula with routine healing, subsequent encounter (primary encounter diagnosis) SUMMARY/PLAN: Patient presents with an injury to his right leg which occurred about 1 month ago. The patient was returning from his kitchen to enter his bedroom when his leg gave out. He had a proximal fibula fracture. The patient has cerebral palsy and ambulates with the assistance of a walker. Since his injury his pain has improved quite a bit, still having some lateral calf aching. Pain today is a 4 out of 10. Repeat x-rays show evidence of healing. We discussed having him continue with activity as tolerated. He can follow-up on as-needed basis. Exam: No tenderness palpation along the proximal fibula, no edema surrounding the proximal fibula. No ecchymosis is noted. Imaging: See Epic Mr. Good De Luna was advised as to contrast therapies and/or to take analgesics/anti-inflammatories as needed and all contraindications were reviewed. Supporting Information Below: Medications: Current Outpatient Medications Medication Sig citalopram (CELEXA) 40 mg tablet Take 1 tablet by mouth once daily. levothyroxine (SYNTHROID) 150 mcg tablet Take 1 tablet by mouth once daily. omeprazole (PRILOSEC) 20 mg capsule take 1 capsule by mouth once daily cholecalciferol, vitamin D3, (VITAMIN D3 ORAL) Take 2,000 mcg by mouth once daily. multivit-min/folic/vit K/lycop (MEN'S 50 PLUS MULTIVITAMIN ORAL) Take 1 tablet by mouth once daily. vitamin b complex capsule Take 1 capsule by mouth once daily. CPAP Initiate CPAP @ 7 cm of water with humidification. Mask (per patient preference) optional chinstrap (if indicated) , filters, tubing, humidifier and lifetime supplies. No current facility-administered medications for this visit. Allergies: Patient has no known allergies. This note was partially generated using [employer] voice recognition system, and there may be some incorrect words, spellings, and punctuation that were not noted in checking the note before saving. Tammie Benitez PA-C * Keisha Ruggiero MA - 08/26/2024 11:03 AM EST AMB ROOMING INTAKE FLOWSHEET DATA Pain Pain Level: 4 Pain Location: Leg-Right Description: Aching Duration Amount of Time: (ongoing) Frequency: Continuous Intervention/Comfort measure: Other: See comment (none) Patient here today for 5 weeks 2 days post fracture right fibula. New x-ray today. documented in [facility]25 NoteHNO ID: [id number] Author: KEISHA RUGGIERO MA Service: ? Author Type: Clinical Support Tech Type: Progress Notes Filed: 08/26/2024 14:11 Note Text: AMB ROOMING INTAKE FLOWSHEET DATA Pain Pain Level: 4 Pain Location: Leg-Right Description: Aching Duration Amount of Time: (ongoing) Frequency: Continuous Intervention/Comfort measure: Other: See comment (none) Patient here today for 5 weeks 2 days post fracture right fibula. New x-ray today.[facility]02-03-2025 History of Present illness Narrative * Santino Barclay Tech - 08/26/2024 11:00 AM EST Radiology Service Progress Note PATIENT NAME: Good De Luna DATE OF SERVICE: August 26, 2024 TIME: 10:41 AM PATIENT IDENTITY VERIFICATION COMPLETED USING TWO (2) IDENTIFIERS: Name and Date of confirmedby patient verbally. FALL SCREENING: Has the patient had 2 falls in the last year or 1 fall with injury or currently using an Ambulatory Assistive Device (Walker, Cane, Wheelchair, Crutches, etc.)? No PATIENT GENDER DATA: Assigned male at PATIENT RELEVANT IMPLANT DATA REVIEWED: Not Applicable PATIENT PRESENTS WITH AN IMPLANTABLE OR ATTACHED LANGUAGE AND LITERATURE DIVISION CHAIR: No RADIOLOGY DEPARTMENT: General X-ray: Exam(s) Completed: Lower Extremity X- Ray(s): Tibia Fibula, Right PERIPHERAL IV DATA: Not applicable SIGNED BY: Artie Oconnor August 26, 2024 10:41 AM documented in this encounterFostoria City Hospital02-03-2025 NoteHNO ID: [id number] Author: SANTINO BARCLAY Tech Service: ? Author Type: Technologist Type: Progress Notes Filed: 08/26/2024 10:42 Note Text: Radiology Service Progress Note PATIENT NAME: Good De Luna DATE OF SERVICE: August 26, 2024 TIME: 10:41 AM PATIENT IDENTITY VERIFICATION COMPLETED USING TWO (2) IDENTIFIERS: Name and Date of confirmed by patient verbally. FALL SCREENING: Has the patient had 2 falls in the last year or 1 fall with injury or currently using an Ambulatory Assistive Device (Walker, Cane, Wheelchair, Crutches, etc.)? No PATIENT GENDER DATA: Assigned male at PATIENT RELEVANT IMPLANT DATA REVIEWED: Not Applicable PATIENT PRESENTS WITH AN IMPLANTABLE OR ATTACHED LANGUAGE AND LITERATURE DIVISION CHAIR: No RADIOLOGY DEPARTMENT: General X-ray: Exam(s) Completed: Lower Extremity X-Ray(s): Tibia Fibula, Right PERIPHERAL IV DATA: Not applicable SIGNED BY: Artie Oconnor August 26, 2024 10:41 [facility]01-14-2025 Telephone encounter Note* Telephone Encounter - Rola Riojas LPN - 08/06/2024 2:25 PM EST Patient notified. [facility]01-[facility] Miscellaneous Notes* Telephone Encounter - Rola Riojas LPN - 08/06/2024 2:25 PM EST Patient notified. * Telephone Encounter - Brian Ahmadi APRN.CNP - 08/06/2024 2:19 PM EST Please let the patient know that I have sent. The following approved medication requests have been transmitted electronically. Requested Prescriptions Pending Prescriptions Disp Refills citalopram (CELEXA) 40 mg tablet 90 tablet 3 Sig: Take 1 tablet by mouth once daily. Brian Ahmadi APRN.CNP * Telephone Encounter - Renard Lo RN - 08/06/2024 2:14 PM EST Pt reports he hasn't had medication in 2 days and he feels like he is having withdrawal symptoms from it. The patient has been identified by name and date of : Yes Caregiver verified no other encounters exist for this prescription request: Yes Caregiver confirmed with patient/requestor that no other refills are due, in the near future, with this provider at this time: Yes The last office visit in the department: 07/25/2024 Does the patient have a future office visit with this provider/department: Yes 01/21/2025 Requested Prescriptions Pending Prescriptions Disp Refills citalopram (CELEXA) 40 mg tablet 90 tablet 3 Sig: Take 1 tablet by mouth once daily. Renard Lo RN August 06, 2024 2:14 PM documented in this encounterFostoria [facility]01-14-[facility]25 Telephone encounter Note * Telephone Encounter - Brian Ahmadi APRN.CNP - 08/06/2024 2:19 PM EST Please let the patient know that I have sent. The following approved medication requests have been transmitted electronically. Requested Prescriptions Pending Prescriptions Disp Refills citalopram (CELEXA) 40 mg tablet 90 tablet 3 Sig: Take 1 tablet by mouth once daily. Brian Daiana, PHYSICIAN UNDERWRITER.REBRANDER [facility] Telephone encounter Note* Telephone Encounter - Renard Lo RN - 08/06/2024 2:14 PM EST Pt reports he hasn't had medication in 2 days and he feels like he is having withdrawal symptoms from it. The patient has been identified by name and date of : Yes Caregiver verified no other encounters exist for this prescription request: Yes Caregiver confirmed with patient/requestor that no other refills are due, in the near future, with this provider at this time: Yes The last office visit in the department: 07/25/2024 Does the patient have a future office visit with this provider/department: Yes 01/21/2025 Requested Prescriptions Pending Prescriptions Disp Refills citalopram (CELEXA) 40 mg tablet 90 tablet 3 Sig: Take 1 tablet by mouth once daily. Renard Lo RN August 06, 2024 2:14 PM [facility]01-06-2025 NoteHNO ID: [id number] Author: TAMMIE BENITEZ PA-C Service: ? Author Type: Physician Data Conversion Operator Type: Progress Notes Filed: 08/02/2024 08:23 Note Text: Tammie Benitez PA-C Department of Orthopaedics Orthopaedics [address] [facility] [address] Dept: [phone] Dept July 29, 2024 CHIEF COMPLAINT: New and Fracture of the Right Ankle Mr. Good De Luna is a 59 year old male who presents with an injury to his right lower extremity which occurred about 1 week ago. Patient's leg gave out when he was turning from his kitchen to enter his bedroom. He does not recall the exact mechanism of injury. He was seen at [facility] a few days after the injury, he had an x-ray of the right lower extremity which is negative, he had a CT scan showing a proximal fibula fracture. His pain today is a 5 out of 10 aching along the lateral aspect of the right lower extremity. The patient has cerebral palsy, he ambulates with the assistance of a walker. He has been relying more in a wheelchair since the injury. He denies any previous right ankle or right lower extremity injuries. ASSESSMENT: S82.831A Other closed fracture of proximal end of right fibula, initial encounter (primary encounter diagnosis) PLAN: Continue to weight bear as tolerated, can wrap knee/calf area with kinjal wrap for comfort if needed. Ice and elevation for pain control. Follow up in 3-4 weeks with repeat xray. Will continue to monitor patient for Other closed fracture of proximal end of right fibula, initial encounter (primary encounter diagnosis), patient to schedule visit as per follow up discussed. Mr. Good De Luna was advised as to contrast therapies and/or to take analgesics/anti-inflammatories as needed and all contraindications were reviewed. OBJECTIVE: Mr. Good De Luna is a pleasant 59 year old in no apparent distress. Gen:There were no vitals taken for this visit. nl development, non obese, no deformities ENT: Normocephalic, normal hearing, moist mucosa CV: Pulses:DP/PT= 2+ and symmetric, capillary refill < 2 secs, no peripheral edema/varicosities Skin: no rash, bruising or lesions. Good turgor. Psych: cooperative and appropriate, alert and oriented x 3, good mood and affect. Musculoskeletal: Patient is tenderness palpation along the proximal fibula, there is some mild edema along the lateral aspect of the knee, no ecchymosis noted. Patient is nontender to palpation along the lateral malleolus. Imaging: * * *Final Report* * * DATE OF EXAM: Jul 29 2024 4:28PM [id number] - XR TIBIA FIBULA 2V AP/LAT RT / PROCEDURE REASON: Other closed fracture of proximal end of right fibula, initial encounter * * * * Physician Interpretation * * * * EXAMINATION: XR TIBIA FIBULA 2V AP/LAT RT CLINICAL HISTORY: Right lower extremity pain after fall Technique: XR TIBIA FIBULA 2V AP/LAT RT -- RIGHT with 2 views on 2 images Comparison: CT right lower extremity 07/22/2024 RESULT: Nondisplaced fracture of the neck of the right fibula. No dislocation. Joint spaces are maintained. IMPRESSION IMPRESSION: Nondisplaced fracture of the neck of the right fibula Claims Representative: MARTIN Transcribe Date/Time: Aug 01 2024 4:07P Dictated by : SHANELL GORE MD This examination was interpreted and the report reviewed and electronically signed by: SHANELL GORE MD on Aug 01 2024 4:10PM EST Supporting Subjective Information Below: Past Surgical History: PAST SURGICAL HISTORY Procedure Laterality Date COLONOSCOPY 05/13/2024 PAST SURGICAL HISTORY OF trigger finger procedure as a child TONSILLECTOMY HX TONSILLECTOMY PRIMARY/SECONDARY Tonsillectomy Medications: Current Outpatient Medications Medication Sig LORazepam (ATIVAN) 0.5 mg Take 1-2 tablets by mouth once daily as needed for up to 30 days. levothyroxine (SYNTHROID) 150 mcg tablet Take 1 tablet by mouth once daily. omeprazole (PRILOSEC) 20 mg capsule take 1 capsule by mouth once daily cholecalciferol, vitamin D3, (VITAMIN D3 ORAL) Take 2,000 mcg by mouth once daily. citalopram (CELEXA) 40 mg tablet Take 1 tablet by mouth once daily. multivit-min/folic/vit K/lycop (MEN'S 50 PLUS MULTIVITAMIN ORAL) Take 1 tablet by mouth once daily. vitamin b complex capsule Take 1 capsule by mouth once daily. CPAP Initiate CPAP @ 7 cm of water with humidification. Mask (per patient preference) optional chin strap (if indicated) , filters, tubing, humidifier and lifetime supplies. No current facility-administered medications for this visit. Allergies: Patient has no known allergies. ROS: General (negative for fatigue, malaise, weight loss/gain) HEENT (negative for headache, earache, recent vision changes, sinus pain, sore throat) Respiratory (no recent shortness of breath, hemoptysis) CV (negative for chest tightness, palpitations) Musculoskeletal (see HPI) Psych (no depression, anxi (more content not included)...[facility]01-06-2025 History of Present illness Narrative* Tammie Benitez PA-C - 07/29/2024 4:44 PM EST Tammie Benitez PA-C Department of Orthopaedics Orthopaedics [address] [facility] [address] Dept: [phone] Dept July 29, 2024 CHIEF COMPLAINT: New and Fracture of the Right Ankle Mr. Good De Luna is a 59 year old male who presents with an injury to his right lower extremity which occurred about 1 week ago. Patient's leg gave out when he was turning from his kitchen to enter his bedroom. He does not recall the exact mechanism of injury. He was seen at [facility] a few days after the injury, he had an x-ray of the right lower extremity which is negative, he had a CT scan showing a proximal fibula fracture. His pain today is a 5 out of 10 aching along the lateral aspect of the right lower extremity. The patient has cerebral palsy, he ambulates with the assistance of a walker. He has been relying more in a wheelchair since the injury. He denies any previous right ankle or right lower extremity injuries. ASSESSMENT: S82.831A Other closed fracture of proximal end of right fibula, initial encounter (primary encounter diagnosis) PLAN: Continue to weight bear as tolerated, can wrap knee/calf area with kinjal wrap for comfort if needed. Ice and elevation for pain control. Follow up in 3-4 weeks with repeat xray. Will continue to monitor patient for Other closed fracture of proximal end of right fibula, initialencounter (primary encounter diagnosis), patient to schedule visit as per follow up discussed. Mr. Good De Luna was advised as to contrast therapies and/or to take analgesics/anti-inflammatories as needed and all contraindications were reviewed. OBJECTIVE: Mr. Good De Luna is a pleasant 59 year old in no apparent distress. Gen:There were no vitals taken for this visit. nl development, non obese, no deformities ENT: Normocephalic, normal hearing, moist mucosa CV: Pulses:DP/PT= 2+ and symmetric, capillary refill < 2 secs, no peripheral edema/varicosities Skin: no rash, bruising or lesions. Good turgor. Psych: cooperative and appropriate, alert and oriented x 3, good mood and affect. Musculoskeletal: Patient is tenderness palpation along the proximal fibula, there is some mild edema along the lateral aspect of the knee, no ecchymosis noted. Patient is nontender to palpation along the lateral malleolus. Imaging: * * *Final Report* * * DATE OF EXAM: Jul 29 2024 4:28PM [id number] - XR TIBIA FIBULA 2V AP/LAT RT / PROCEDURE REASON: Other closed fracture of proximal end of right fibula, initial encounter * * * * Physician Interpretation * * * * EXAMINATION: XR TIBIA FIBULA 2V AP/LAT RT CLINICAL HISTORY: Right lower extremity pain after fall Technique: XR TIBIA FIBULA 2V AP/LAT RT -- RIGHT with 2 views on 2 images Comparison: CT right lower extremity 07/22/2024 RESULT: Nondisplaced fracture of the neck of the right fibula. No dislocation. Joint spaces are maintained. IMPRESSION IMPRESSION: Nondisplaced fracture of the neck of the right fibula Claims Representative: PSCB Transcribe Date/Time: Aug 01 2024 4:07P Dictated by : SHANELL GORE MD This examination was interpreted and the report reviewed and electronically signed by: SHANELL GORE MD on Aug 01 2024 4:10PM EST Supporting Subjective Information Below: Past Surgical History: PAST SURGICAL HISTORY Procedure Laterality Date COLONOSCOPY 05/13/2024 PAST SURGICAL HISTORY OF trigger finger procedure as a child TONSILLECTOMY HX TONSILLECTOMY PRIMARY/SECONDARY <AGE 14 Tonsillectomy Medications: Current Outpatient Medications Medication Sig LORazepam (ATIVAN) 0.5 mg Take 1-2 tablets by mouth once daily as needed for up to 30 days. levothyroxine (SYNTHROID) 150 mcg tablet Take 1 tablet by mouth once daily. omeprazole (PRILOSEC) 20 mg capsule take 1 capsule by mouth once daily cholecalciferol, vitamin D3, (VITAMIN D3 ORAL) Take 2,000 mcg by mouth once daily. citalopram (CELEXA) 40 mg tablet Take 1 tablet by mouth once daily. multivit-min/folic/vit K/lycop (MEN'S 50 PLUS MULTIVITAMIN ORAL) Take 1 tablet by mouth once daily. vitamin b complex capsule Take 1 capsule by mouth once daily. CPAP Initiate CPAP @ 7 cm of water with humidification. Mask (per patient preference) optional chinstrap (if indicated) , filters, tubing, humidifier and lifetime supplies. No current facility-administered medications for this visit. Allergies: Patient has no known allergies. ROS: General (negative for fatigue, malaise, weight loss/gain) HEENT (negative for headache, earache, recent vision changes, sinus pain, sore throat) Respiratory (no recent shortness of breath, hemoptysis) CV (negative for chest tightness, palpitations) Musculoskeletal (see HPI) Psych (no depression, anxiety) This note was partially generated using [employer] voice recognition system, and there may be some incorrect words, spellings, and punctuation that were not noted in checking the note before saving. Tammie Benitez PA-C * Keisha Ruggiero MA - 07/29/2024 3:35 PM EST AMB ROOMING INTAKE FLOWSHEET DATA Risk Screening Do you have concerns about personal safety or safety in the home?: No Pain Pain Level: 5 Pain Location: (right lower leg) Description: Aching, Sharp Duration Amount of Time: 1 Duration Units: Weeks Frequency: Continuous Intervention/Comfort measure: Other: See comment (none) documented in this encounterFostoria City [facility]01-06-[facility]25 History of Present illness Narrative* Cuhyita Lopez RT(R) - 07/29/2024 4:10 PM EST Radiology Service Progress Note PATIENT NAME: Good De Luna DATE OF SERVICE: July 29, 2024 TIME: 7:34 PM PATIENT IDENTITY VERIFICATION COMPLETED USING TWO (2) IDENTIFIERS: Name and Date of confirmedby patient verbally. FALL SCREENING: Has the patient had 2 falls in the last year or 1 fall with injury or currently using an Ambulatory Assistive Device (Walker, Cane, Wheelchair, Crutches, etc.)? Yes, Patient High Riskfor Falls What interventions were put in place to prevent falls during this visit? Increased Observations by Caregivers PATIENT GENDER DATA: Male PATIENT RELEVANT IMPLANT DATA REVIEWED: Not Applicable PATIENT PRESENTS WITH AN IMPLANTABLE OR ATTACHED LANGUAGE AND LITERATURE DIVISION CHAIR: No RADIOLOGY DEPARTMENT: General X-ray: Exam(s) Completed: Lower Extremity X- Ray(s): Tibia Fibula, Right PERIPHERAL IV DATA: Not applicable SIGNED BY: RT Anil(R) July 29, 2024 7:34 PM documented in this encounterFostoria City Hospital01-06-2025 NoteHNO ID: [id number] Author: CHUYITA LOPEZ RT(R) Service: ? Author Type: Technologist Type: Progress Notes Filed: 07/29/2024 19:36 Note Text: Radiology Service Progress Note PATIENT NAME: Good De Luna DATE OF SERVICE: July 29, 2024 TIME: 7:34 PM PATIENT IDENTITY VERIFICATION COMPLETED USING TWO (2) IDENTIFIERS: Name and Date of confirmed by patient verbally. FALL SCREENING: Has the patient had 2 falls in the last year or 1 fall with injury or currently using an Ambulatory Assistive Device (Walker, Cane, Wheelchair, Crutches, etc.)? Yes, Patient High Risk for Falls What interventions were put in place to prevent falls during this visit? Increased Observations by Caregivers PATIENT GENDER DATA: Male PATIENT RELEVANT IMPLANT DATA REVIEWED: Not Applicable PATIENT PRESENTS WITH AN IMPLANTABLE OR ATTACHED LANGUAGE AND LITERATURE DIVISION CHAIR: No RADIOLOGY DEPARTMENT: General X-ray: Exam(s) Completed: Lower Extremity X-Ray(s): Tibia Fibula, Right PERIPHERAL IV DATA: Not applicable SIGNED BY: RT Anil(R) July 29, 2024 7:34 [facility]CS[facility] NoteHNO ID: [id number] Author: KEISHA RUGGIERO MA Service: ? Author Type: Clinical Support Tech Type: Progress Notes Filed: 08/02/2024 08:23 Note Text: AMB ROOMING INTAKE FLOWSHEET DATA Risk Screening Do you have concerns about personal safety or safety in the home?: No Pain Pain Level: 5 Pain Location: (right lower leg) Description: Aching, Sharp Duration Amount of Time: 1 Duration Units: Weeks Frequency: Continuous Intervention/Comfort measure: Other: See comment (none)[facility]01-06-2025 NotePatient Outreach (PULMMN) GOOD DE LUNA ([id number]) 1965 M Date Time Provider Department 07/29/24 EMMA TURNER During your visit today, we recorded the following information about you: Allergies As of Date: 07/29/2024 (No Known Allergies) Date Reviewed: 07/29/2024 Reviewed by: Keisha Ruggiero MA - Fully Assessed Visit Diagnosis:Tobacco abuse [Z72.0] Order(s):[facility] [[id number]] Order #: [id number]: 1 FUTURE Prescriptions as of 08/01/2024 - LORazepam (ATIVAN) 0.5 mg Take 1-2 tablets by mouth once daily as needed for up to 30 days. - levothyroxine (SYNTHROID) 150 mcg tablet Take 1 tablet by mouth once daily. - omeprazole (PRILOSEC) 20 mg capsule take 1 capsule by mouth once daily - cholecalciferol, vitamin D3, (VITAMIN D3 ORAL) Take 2,000 mcg by mouth once daily. - citalopram (CELEXA) 40 mg tablet Take 1 tablet by mouth once daily. - CPAP Initiate CPAP @ 7 cm of water with humidification. Mask (per patient preference) optional chin strap (if indicated) , filters, tubing, humidifier and lifetime supplies. - multivit-min/folic/vit K/lycop (MEN'S 50 PLUS MULTIVITAMIN ORAL) Take 1 tablet by mouth once daily. - vitamin b complex capsule Take 1 capsule by mouth once daily. 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.8] 05/27/2021 Spasticity [R25.2] 05/27/2021 Costochondritis [M94.0] 05/27/2021 Localized osteoporosis ([place]) [M81.6] 05/27/2021 Recurrent major depressive disorder, remission *10/17/2023 Prostate cancer (HCC) [C61] 10/17/2023 Diverticulitis [K57.92] 04/30/2024 Rectal bleeding [K62.5] 05/12/2024 Encounter Status:Closed by EDGAR PRODUSER on 08/01/24[facility] 07-25-[facility] History of Present illness Narrative* Mathew Cobian MD - 07/25/2024 10:40 AM EST Chief Complaint Patient presents with: Hospital Follow Up HPI Good De Luna is a 59 year old male who presents here today for ER Follow Up.. Pt was in [facility] ER on 07/22/24 for closed fx of fibula proximal right. Advised to follow up with Ortho and PCP. He was discharged home on oxycodone-acetaminophen [Endocet] 5-325 mg tablet 1 every 6 hours prn and Zofran prn nausea. Pt is currently scheduled with Ortho on Monday. Using a walker to ambulate. Currently not wearing any braces. Reports this occurred after a fall. Was seen on 07/22/24 due to increased amount of pain.At this time he's using OTC Aleve and anti-inflammatories. Tends to use OTC medication vs pain medication due to the prescription medication making him loopy. Is requesting a letter for upcoming court date on Monday for rent escrow, due to Landlord not doingrepairs and now repaying him his security deposit back. He's now scheduled for medical appt's for his prostate cancer (MRI) and now Ortho appt due to fx and needing to keep appt. Has a fax number to fax letter. Fax number [phone], ATTN: Karie. Case #: [id number]. Notes some sinus drainage and cough, wondering if he needs an abx. Below copied from Care Everywhere: History of Present Illness Chief Complaint: Lower Extremity Injury Narrative Narrative: Patient is a 59-year-old male with a past medical history of of cerebral palsy, JODEE on CPAP, anxiety who presents to the emerged part with chief complaint of right lower extremity pain. Patient states that on Monday he was walking his leg gave out and he had pain in the right side of his leg. He states that he went to [facility] had an x-ray obtained and was told that everything was normal. He states that he is having significant amount of pain still therefore he came here further evaluation management. He states he has been ambulating with a walker at home secondary to the pain. Medical decision making narrative: Patient is a 59-year-old male who presented to the emergency department the chief complaint of right knee pain. Patient had a x-ray performed prior to my evaluation this was reviewed by myself and byradiology. On the differential diagnose includes but limited to tibial plateau fracture, fibular fracture, l lateral collateral ligament injury. Once workup is obtained reviewed he will bereevaluated. Patient's x-ray reviewed once again by myself and by radiology showed no acute findings. Given the patient is still having significant pain we will add a CT of his right knee down through his ankle joint on. That this was reviewed and showed a fracture at the proximal fibula. Called and discussed case with on-call orthopedic surgeon Dr. Forrest who states that the patient cancontinue to use his walker and do protected weightbearing and follow-up in his office by the end ofthe week. I gave the contact information of the patient. Patient be given a short course of Percocet and Zofran for severe pain he is otherwise to use Tylenol and ibuprofen for mild to moderate pain.He he was encouraged return with worsening symptoms or concerns. He is agreeable to plan he would like to go home all question concerns answered he is discharged home in stable condition. Past medical history, appointments, medications, allergies reviewed. Previous Medical History PAST MEDICAL HISTORY Diagnosis Date Acid reflux Anxiety state, unspecified Arthritis Cancer (HCC) Cerebral palsy (HCC) Congenital diplegia (HCC) Diverticulitis GERD (gastroesophageal reflux disease) JODEE on CPAP Sleep apnea 09/22/2008 Spinal stenosis Unspecified hypothyroidism Previous Surgical History PAST SURGICAL HISTORY Procedure Laterality Date COLONOSCOPY 05/13/2024 PAST SURGICAL HISTORY OF trigger finger procedure as a child TONSILLECTOMY HX TONSILLECTOMY PRIMARY/SECONDARY <AGE 14 Tonsillectomy Family History FAMILY HISTORY Adopted: Yes Problem Relation Age of Onset Diabetes Mother Thyroid Maternal Grandmother Patient Allergies ALLERGIES No Known Allergies Current Medications Current Outpatient Medications on File Prior to Visit Medication Sig LORazepam (ATIVAN) 0.5 mg Take 1-2 tablets by mouth once daily as needed for up to 30 days. levothyroxine (SYNTHROID) 150 mcg tablet Take 1 tablet by mouth once daily. omeprazole (PRILOSEC) 20 mg capsule take 1 capsule by mouth once daily cholecalciferol, vitamin D3, (VITAMIN D3 ORAL) Take 2,000 mcg by mouth once daily. citalopram (CELEXA) 40 mg tablet Take 1 tablet by mouth once daily. CPAP Initiate CPAP @ 7 cm of water with humidification. Mask (per patient preference) optional chinstrap (if indicated) , filters, tubing, humidifier and lifetime supplies. multivit-min/folic/vit K/lycop (MEN'S 50 PLUS MULTIVITAMIN ORAL) Take 1 tablet by mouth once daily. vitamin b complex capsule Take 1 capsule by mouth once daily. No current facility-administered medications on file prior to visit. Social History Social History Tobacco Use Smoking status: Former Current packs/day: 0.00 Average packs/day: 1 pack/day for 30.0 years (30.0 ttl pk-yrs) Types: Cigarettes Start date: 07/29/1993 Quit date: 07/29/2023 Years since quittin.9 Smokeless tobacco: Never Tobacco comments: Pt has cut back to 1/4 pack daily. Vaps off and on Vaping Use Vaping status: Some Days Substance Use Topics Alcohol use: Yes Comment: 3/4 beers per week Drug use: No EXAM: BP 132/84 (BP Site: Left Arm, BP Position: Sitting, BP Cuff Size: Regular Adult) Pulse 64 Resp 18 General Appearance: Well appearing, alert, in no acute distress, well-hydrated, well nourished. andWalker. Lungs: Lungs clear to auscultation. No wheezing, rhonchi, rales.. Heart: RRR without murmur, gallop, or rubs. No ectopy. Health Maintenance List HIV Screening Never done Hepatitis B Vaccine(1 of 3 - 19+ 3-dose series) Never done Shingrix Vaccine(1 of 2) Never done Pneumococcal Vaccine: 50+(1 of 1 - PCV) Never done Lung Cancer Screening due on 06/08/2022 Influenza Vaccine(1) due on 01/20/2025 Colorectal Cancer Screening due on 05/13/2025 Annual PCP Team Chronic Disease Visit due on 07/12/2025 Diabetes Screening due on 07/12/2027 DTaP,Tdap,Td Vaccine(3 - Td or Tdap) due on 08/28/2028 Lipid Screening due on 09/25/2028 Prostate Cancer Screening Discussion due on 05/03/2029 Hepatitis C Screening Completed Covid-19 Vaccine Completed HPV Vaccine Aged Out Data reviewed Care Everywhere ASSESSMENT/PLAN: 1. Hospital discharge follow-up - ICD9: V67.59, ICD10: Z09 (primary diagnosis) - Stable today 2. Closed fracture of proximal end of right fibula, unspecified fracture morphology, sequela - ICD9: 905.4, ICD10: S82.831S - Continue using NSAID's - See Ortho as scheduled 3. Prostate cancer (HCC) - ICD9: 185, ICD10: C61 - Letter written and faxed to information given by pt above. Follow up as needed. I agree with the Chief Complaint, ROS, and Past Histories independently gathered by the clinical faculty support coordinator and the remaining scribed note accurately describes my personal service to the patient. Medical Decision Making: Problems: Low: Acute, uncomplicated illness or injury and Stable chronic illness Risk: Low: Low risk from testing/treatment Medical Decision Making Level: 3 - Low Mathew Cobian MD The documentation for this note was completed by Mick Youngblood MA acting as scribe for Mathew Cobian MD. July 25, 2024 10:49 AM. Mick Youngblood MA [facility] NoteHNO ID: [id number] Author: MATHEW COBIAN MD Service: ? Author Type: Physician Type: Progress Notes Filed: 07/25/2024 11:12 Note Text: Chief Complaint Patient presents with: Hospital Follow Up HPI Good De Luna is a 59 year old male who presents here today for ER Follow Up.. Pt was in [facility] ER on 07/22/24 for closed fx of fibula proximal right. Advised to follow up with Ortho and PCP. He was discharged home on oxycodone-acetaminophen [Endocet] 5-325 mg tablet 1 every 6 hours prn and Zofran prn nausea. Pt is currently scheduled with Ortho on Monday. Using a walker to ambulate. Currently not wearing any braces. Reports this occurred after a fall. Was seen on 07/22/24 due to increased amount of pain. At this time he's using OTC Aleve and anti-inflammatories. Tends to use OTC medication vs pain medication due to the prescription medication making him loopy. Is requesting a letter for upcoming court date on Monday for rent escrow, due to Landlord not doing repairs and now repaying him his security deposit back. He's now scheduled for medical appt's for his prostate cancer (MRI) and now Ortho appt due to fx and needing to keep appt. Has a fax number to fax letter. Fax number [phone], ATTN: Karie. Case #: [id number]. Notes some sinus drainage and cough, wondering if he needs an abx. Below copied from Care Everywhere: History of Present Illness Chief Complaint: Lower Extremity Injury Narrative Narrative: Patient is a 59-year-old male with a past medical history of of cerebral palsy, JODEE on CPAP, anxiety who presents to the emerged part with chief complaint of right lower extremity pain. Patient states that on Monday he was walking his leg gave out and he had pain in the right side of his leg. He states that he went to [facility] had an x-ray obtained and was told that everything was normal. He states that he is having significant amount of pain still therefore he came here further evaluation management. He states he has been ambulating with a walker at home secondary to the pain. Medical decision making narrative: Patient is a 59-year-old male who presented to the emergency department the chief complaint of right knee pain. Patient had a x-ray performed prior to my evaluation this was reviewed by myself and by radiology. On the differential diagnose includes but limited to tibial plateau fracture, fibular fracture, l lateral collateral ligament injury. Once workup is obtained reviewed he will bereevaluated. Patient's x-ray reviewed once again by myself and by radiology showed no acute findings. Given the patient is still having significant pain we will add a CT of his right knee down through his ankle joint on. That this was reviewed and showed a fracture at the proximal fibula. Called and discussed case with on-call orthopedic surgeon Dr. Forrest who states that the patient can continue to use his walker and do protected weightbearing and follow-up in his office by the end of the week. I gave the contact information of the patient. Patient be given a short course of Percocet and Zofran for severe pain he is otherwise to use Tylenol and ibuprofen for mild to moderate pain. He he was encouraged return with worsening symptoms or concerns. He is agreeable to plan he would like to go home all question concerns answered he is discharged home in stable condition. Past medical history, appointments, medications, allergies reviewed. Previous Medical History PAST MEDICAL HISTORY Diagnosis Date Acid reflux Anxiety state, unspecified Arthritis Cancer (HCC) Cerebral palsy (HCC) Congenital diplegia (HCC) Diverticulitis GERD (gastroesophageal reflux disease) JODEE on CPAP Sleep apnea 09/22/2008 Spinal stenosis Unspecified hypothyroidism Previous Surgical History PAST SURGICAL HISTORY Procedure Laterality Date COLONOSCOPY 05/13/2024 PAST SURGICAL HISTORY OF trigger finger procedure as a child TONSILLECTOMY HX TONSILLECTOMY PRIMARY/SECONDARY Tonsillectomy Family History FAMILY HISTORY Adopted: Yes Problem Relation Age of Onset Diabetes Mother Thyroid Maternal Grandmother Patient Allergies ALLERGIES No Known Allergies Current Medications Current Outpatient Medications on File Prior to Visit Medication Sig LORazepam (ATIVAN) 0.5 mg Take 1-2 tablets by mouth once daily as needed for up to 30 days. levothyroxine (SYNTHROID) 150 mcg tablet Take 1 tablet by mouth once daily. omeprazole (PRILOSEC) 20 mg capsule take 1 capsule by mouth once daily cholecalciferol, vitamin D3, (VITAMIN D3 ORAL) Take 2,000 mcg by mouth once daily. citalopram (CELEXA) 40 mg tablet Take 1 tablet by mouth once daily. CPAP Initiate CPAP @ 7 cm of water with humidification. Mask (per patient preference) optional chin strap (if indicated) , filters, tubing, humidifier and lifetime supplies. multivit-min/folic/vit K/lycop (MEN'S 50 PLUS M (more content not included)... [facility]12-31-2024 Telephone encounter Note* Telephone Encounter - Keisha Ruggiero MA - 07/23/2024 1:34 PM EST I called and spoke with the patient. Advised no providers in the [place] office until 07/29/2024. Patient scheduled appointment. [facility]12-[facility] Miscellaneous Notes* Telephone Encounter - Keisha Ruggiero MA - 07/23/2024 1:34 PM EST I called and spoke with the patient. Advised no providers in the [place] office until 07/29/2024. Patient scheduled appointment. * Telephone Encounter - Sofia Chung MA - 07/23/2024 12:47 PM EST Patient transferred. Patient states he was told by [facility] ED he has a fracture and needs to be seen byorthopedics by Monday. Patient unable to stay on hold for scheduling. Please advise Sofia Chung MA * Telephone Encounter - Ashlyn London RN - 07/23/2024 12:34 PM EST Pt scheduled [facility] ER f/u. 07-22-24. Reports has closed fx of fibula proximal right, and instructed to f/u with pcp and also ortho by the end of the week. Transferred to Ortho per pt request. documented in this [facility]12-31-[facility]24 Telephone encounter Note * Telephone Encounter - Ashlyn London RN - 07/23/2024 12:52 PM EST Pt phoned in for another reason and given provider's message below with verbalized understanding. Pt agreeable. [facility]12-[facility] Miscellaneous Notes* Telephone Encounter - Ashlyn London RN - 07/23/2024 12:52 PM EST Pt phoned in for another reason and given provider's message below with verbalized understanding. Pt agreeable. * Telephone Encounter - Mick Youngblood MA - 07/22/2024 12:56 PM EST Verbalize[employer]th[employer] message sent to pt asking for a return call to office regarding his recent lab results. Pt notified office has attempted to reach him with VM left. Mick Youngblood MA * Telephone Encounter - Levi Paniagua LPN - 07/18/2024 12:29 PM EST Left message for pt to contact office. Levi Paniagua LPN * Telephone Encounter - Brian Ahmadi APRN.CNP - 07/18/2024 9:04 AM EST Please let the patient know that his labs looked fine with the exception of his TSH, which was slightly elevated. In our encounter, the patient mentioned that he had been missing some doses of his levothyroxine. I would recommend that he try taking consistently over the next 6 weeks and repeat TSH in 6 weeks. Labs placed Brian Ahmadi APRN.CNP documented in this encounterFost[facility]12-31-2024 Telephone encounter Note * Telephone Encounter - Sofia Chung MA - 07/23/2024 12:47 PM EST Patient transferred. Patient states he was told by [facility] ED he has a fracture and needs to be seen byorthopedics by Monday. Patient unable to stay on hold for scheduling. Please advise Sofia Chung MA [facility]12-31-[facility] Telephone encounter Note* Telephone Encounter - Ashlyn London RN - 07/23/2024 12:34 PM EST Pt scheduled [facility] ER f/u. 07-22-24. Reports has closed fx of fibula proximal right, and instructed to f/u with pcp and also ortho by the end of the week. Transferred to Ortho per pt request. [facility]12-30-[facility] Telephone encounter Note* Telephone Encounter - Mick Youngblood MA - 07/22/2024 12:56 PM EST [email or web address] message sent to pt asking for a return call to office regarding his recent lab results. Pt notified office has attempted to reach him with VM left. Mick Youngblood MA [facility]12-28-[facility] Hospital Discharge instructions Patient Education 07/20/2024 16:12:45 Ankle Sprain (Adult) Ankle Sprain (Adult) An ankle sprain is a stretching or tearing of the ligaments that hold the ankle joint together. There are no broken bones. An ankle sprain is a common injury for both children and adults. It happens when the ankle turns, twists, or rolls in an awkward way. This can be caused by a sports injury. Or it can happen from doing something as simple as stepping on an uneven surface. Ligaments are made of tough connective tissue. Normally, ligaments stretch a certain amount and then go back to their normal place. A sprain happens when a ligament is forced to stretch more than thenormal amount. A severe sprain can actually tear the ligaments. If you have a severe sprain, you may have felt or heard something like a pop when you were injured. Ankle sprains are given a grade depending on whether they are mild, moderate, or severe: Grade 1 sprain. A mild sprain with minor stretching and damage to the ligament. Grade 2 sprain. A moderate sprain where the ligament is partly torn. Grade 3 sprain. The most severe kind of sprain. The ligament is completely torn. Most sprains take about 4 to 6 weeks to heal. A severe sprain can take several months to recover. Your healthcare provider may order X-rays to be sure you don t have a fracture, or broken bone. The injured area will feel sore. Swelling and pain may make it hard to walk. You may need crutches if walking is painful. Or your provider may have you use a cast boot or air splint. This will dependon the grade of ankle sprain that you have. Home care For a Grade 1 sprain, use RICE (rest, ice, compression, and elevation): Rest your ankle. Don t walk on it. Ice should be used right away to help control swelling. Place an ice pack over the injured area for20 minutes. Do this every 3 to 6 hours for the first 24 to 48 hours. Keep using ice packs to ease pain and swelling as needed. To make an ice pack, put ice cubes in a plastic bag that seals at the top. Wrap the bag in a clean, thin towel or cloth. Never put ice or an ice pack directly on the skin. The ice pack can be put right on the cast, bandage, or splint. As the ice melts, be careful that thecast, bandage, or splint doesn t get wet. If you have a boot, open it to apply an ice pack, unless told otherwise by your provider. Compression devices help to control swelling. They also keep the ankle from moving and support yourinjured ankle. These devices include dressings, bandages, and wraps. Elevate or raise your ankle above the level of your heart when sitting or lying down. This is very important for the first 48 hours. Follow the RICE guidelines for a Grade 2 sprain. This type of sprain will take longer to heal. Yourprovider may have you wear a splint, cast, or brace to keep your ankle from moving. If you have a Grade 3 sprain, you are at risk for long-term ankle instability. In rare cases, surgery may be needed. Your provider may have you wear a short leg cast or a walking boot for 2 to 3 weeks. After 48 hours, it may be helpful to apply heat for 20 minutes several times a day. You can do thiswith a heating pad or warm compress. Or you may want to go back and forth between using ice and heat. Never apply heat directly to the skin. Always wrap the heating pad or warm compress in a clean, thin towel or cloth. You may use bbli-aua-stezxbt pain medicine (NSAIDS or nonsteroidal anti- inflammatory drugs) to control pain, unless another pain medicine was prescribed. Talk with your provider before using these medicines if you have chronic liver or kidney disease, or have ever had a stomach ulcer or gastrointestinal bleeding. Follow any rehabilitation exercises your provider gives you. These can help you be more flexible and improve your balance and coordination. This is helpful in preventing long-term ankle problems. Prevention To help prevent ankle sprains, it s important to have good strength, balance, and flexibility. Be sure to: Always warm up before you exercise or do something very active Be careful when walking or running on uneven or cracked surfaces Wear shoes that are in good condition and fit well Listen to your body s signals to slow down when you are in pain or tired Follow-up care Any X-rays you had today don t show any broken bones, breaks, or fractures. Sometimes fractures dont show up on the first X-ray. Bruises and sprains can sometimes hurt as much as a fracture. These injuries can take time to heal completely. If your symptoms don t get better or they get worse, talk with your healthcare provider. You may need a repeat X-ray. Follow up with your healthcare provider, or as advised. Check for any warning signs listed below. When to seek medical advice Call your healthcare provider right away if any of these occur: Fever of 100.4 F (38 C) or higher, or as directed by your healthcare provider [place] The injury doesn t seem to be healing The swelling comes back The cast or splint has a bad smell The plaster cast or splint gets wet or soft The fiberglass cast or splint gets wet and does not dry for 24 hours The pain or swelling increases, or redness appears Your toes become cold, blue, numb, or tingly The skin is discolored (looks blue, purple, or castle), has blisters, or is irritated You re-injure your ankle [employer]. [address] [place] [address]. All rights reserved. This information is not intended as a substitute for professional medical care. Always follow yourhealthcare professional's instructions. 07/20/2024 16:12:36 Treating Strains and Sprains Treating Strains and Sprains Strains and sprains happen when muscles or other soft tissues near your bones stretch or tear. These injuries can cause bruising, swelling, and pain. To ease your discomfort and speed the healing of your strain or sprain, follow the tips below. Remember, a strain or sprain can take 6 to 8 weeks to heal. Important Note: Do not give aspirin to children or teens without discussing it with your healthcareprovider first. Ice first, heat later Use ice for the first 24 to 48 hours after injury. Ice helps prevent swelling and reduce pain. Ice the injury for no more than 20 minutes at a time and allow at least 20 minutes between icing sessions. Apply heat after the first 72 hours, once the swelling has gone down. Heat relaxes muscles and increases blood flow. Soak the injured area in warm water or use a heating pad set on low for no more than 15 minutes at a time. Wrap and elevate Wrap an injured limb firmly with an elastic bandage. This provides support and helps prevent swelling. Don t wear an elastic bandage overnight. Watch for tingling, numbness, or increased pain. Removethe bandage immediately if any of these occurs. Elevate the injured area to help reduce swelling and throbbing. It s best to raise an injured limb above the level of your heart. Medicines Nsuq-mgj-sfdfcaf medicines such as acetaminophen or ibuprofen can help reduce pain. Some also help reduce swelling. Take medicine only as directed. Rest the area even if medicines are controlling the pain. Rest Rest the injured area by not using it for 24 hours. When you re ready, return slowly to your normal activities. Rest the injured area often. Don t use or walk on an injured limb if it hurts. The [employer]. [address] [place], [place] [address]. All rights reserved. This information is not intended as a substitute for professional medical care. Always follow yourhealthcare professional's instructions. Follow Up Care 07/20/2024 14:16:50 With:KARAN SRINIVASAN DO Orthopedic Address: [facility] [address] [phone] When:3-5 days With:Go to emergency room if symptoms worsen Address:Unknown When:2-4 days With:MATHEW COBIAN MD Address: [address] [place] [address]- When:2-4 days [facility] 12-28-2024 Note Discharge Instructions Thank you for allowing [facility] to assist you with your healthcare needs. The following is importantdischarge information regarding your hospital visit. Diagnosis from Today's Visit Ankle sprain Sprain of lower leg What to Do Next Instructions from Your Care Team X-ray here negative for any fracture did show some soft tissue swelling. Use stirrup splint as instructed for possible ankle sprain weightbearing as tolerated. Follow-up with . Follow-up orthopedics if continued pain. May use crutches as needed. Take Tylenol and or Motrin as needed for pain. Return emergency department if you have worsening symptoms or any other care concern. Discharge Home Equipment - Ordered -- Crutches, 99 month(s), 07/20/24 16:13:00 EST Discharge Home Equipment - Ordered -- Splint, Ankle Stirrup Right, 99 month(s), 07/20/24 16:13:00 EST Post Acute Orders No qualifying data available. You Need to Schedule the Following Appointments Follow Up with KARAN SRINIVASAN DO Orthopedic When:Within 3-5 days Where:[facility] [address] [phone] Follow Up with Go to emergency room if symptoms worsen When:Within 2-4 days Follow Up with MATHEW COBIAN MD When:Within 2-4 days Where:[address] [place] [address]- Allergies No Known Medication Allergies Medications Please ask your primary doctor or pharmacist before taking any other medication not listed, including over the counter drugs, herbal medications, vitamins and or supplements as they may interact withyour home medications. Please take this list to your next doctor s visit. Bring all medications you take, including over the counter medications, herbals and other supplements with you to your doctor s visit. Patients and families are reminded to discard old lists and to update any records with all medication providers or retail pharmacies. Education Materials Ankle Sprain (Adult) An ankle sprain is a stretching or tearing of the ligaments that hold the ankle joint together. There are no broken bones. An ankle sprain is a common injury for both children and adults. It happens when the ankle turns, twists, or rolls in an awkward way. This can be caused by a sports injury. Or it can happen from doing something as simple as stepping on an uneven surface. Ligaments are made of tough connective tissue. Normally, ligaments stretch a certain amount and then go back to their normal place. A sprain happens when a ligament is forced to stretch more than thenormal amount. A severe sprain can actually tear the ligaments. If you have a severe sprain, you may have felt or heard something like a pop when you were injured. Ankle sprains are given a grade depending on whether they are mild, moderate, or severe: Grade 1 sprain. A mild sprain with minor stretching and damage to the ligament. Grade 2 sprain. A moderate sprain where the ligament is partly torn. Grade 3 sprain. The most severe kind of sprain. The ligament is completely torn. Most sprains take about 4 to 6 weeks to heal. A severe sprain can take several months to recover. Your healthcare provider may order X-rays to be sure you don t have a fracture, or broken bone. The injured area will feel sore. Swelling and pain may make it hard to walk. You may need crutches if walking is painful. Or your provider may have you use a cast boot or air splint. This will dependon the grade of ankle sprain that you have. Home care For a Grade 1 sprain, use RICE (rest, ice, compression, and elevation): Rest your ankle. Don t walk on it. Ice should be used right away to help control swelling. Place an ice pack over the injured area for20 minutes. Do this every 3 to 6 hours for the first 24 to 48 hours. Keep using ice packs to ease pain and swelling as needed. To make an ice pack, put ice cubes in a plastic bag that seals at the top. Wrap the bag in a clean, thin towel or cloth. Never put ice or an ice pack directly on the skin. The ice pack can be put right on the cast, bandage, or splint. As the ice melts, be careful that thecast, bandage, or splint doesn t get wet. If you have a boot, open it to apply an ice pack, unless told otherwise by your provider. Compression devices help to control swelling. They also keep the ankle from moving and support yourinjured ankle. These devices include dressings, bandages, and wraps. Elevate or raise your ankle above the level of your heart when sitting or lying down. This is very important for the first 48 hours. Follow the RICE guidelines for a Grade 2 sprain. This type of sprain will take longer to heal. Yourprovider may have you wear a splint, cast, or brace to keep your ankle from moving. If you have a Grade 3 sprain, you are at risk for long-term ankle instability. In rare cases, surgery may be needed. Your provider may have you wear a short leg cast or a walking boot for 2 to 3 weeks. After 48 hours, it may be helpful to apply heat for 20 minutes several times a day. You can do thiswith a heating pad or warm compress. Or you may want to go back and forth between using ice and heat. Never apply heat directly to the skin. Always wrap the heating pad or warm compress in a clean, thin towel or cloth. You may use bqaq-iiw-jxpbygf pain medicine (NSAIDS or nonsteroidal anti- inflammatory drugs) to control pain, unless another pain medicine was prescribed. Talk with your provider before using these medicines if you have chronic liver or kidney disease, or have ever had a stomach ulcer or gastrointestinal bleeding. Follow any rehabilitation exercises your provider gives you. These can help you be more flexible and improve your balance and coordination. This is helpful in preventing long-term ankle problems. Prevention To help prevent ankle sprains, it s important to have good strength, balance, and flexibility. Be sure to: Always warm up before you exercise or do something very active Be careful when walking or running on uneven or cracked surfaces Wear shoes that are in good condition and fit well Listen to your body s signals to slow down when you are in pain or tired Follow-up care Any X-rays you had today don t show any broken bones, breaks, or fractures. Sometimes fractures dont show up on the first X-ray. Bruises and sprains can sometimes hurt as much as a fracture. These injuries can take time to heal completely. If your symptoms don t get better or they get worse, talk with your healthcare provider. You may need a repeat X-ray. Follow up with your healthcare provider, or as advised. Check for any warning signs listed below. When to seek medical advice Call your healthcare provider right away if any of these occur: Fever of 100.4 F (38 C) or higher, or as directed by your healthcare provider [place] The injury doesn t seem to be healing The swelling comes back The cast or splint has a bad smell The plaster cast or splint gets wet or soft The fiberglass cast or splint gets wet and does not dry for 24 hours The pain or swelling increases, or redness appears Your toes become cold, blue, numb, or tingly The skin is discolored (looks blue, purple, or castle), has blisters, or is irritated You re-injure your ankle [id number] [employer]. [address] [place] [address]. All rights reserved. This information is not intended as a substitute for professional medical care. Always follow yourhealthcare professional's instructions. Treating Strains and Sprains Strains and sprains happen when muscles or other soft tissues near your bones stretch or tear. These injuries can cause bruising, swelling, and pain. To ease your discomfort and speed the healing of your strain or sprain, follow the tips below. Remember, a strain or sprain can take 6 to 8 weeks to heal. Important Note: Do not give aspirin to children or teens without discussing it with your healthcareprovider first. Ice first, heat later Use ice for the first 24 to 48 hours after injury. Ice helps prevent swelling and reduce pain. Ice the injury for no more than 20 minutes at a time and allow at least 20 minutes between icing sessions. Apply heat after the first 72 hours, once the swelling has gone down. Heat relaxes muscles and increases blood flow. Soak the injured area in warm water or use a heating pad set on low for no more than 15 minutes at a time. Wrap and elevate Wrap an injured limb firmly with an elastic bandage. This provides support and helps prevent swelling. Don t wear an elastic bandage overnight. Watch for tingling, numbness, or increased pain. Removethe bandage immediately if any of these occurs. Elevate the injured area to help reduce swelling and throbbing. It s best to raise an injured limb above the level of your heart. Medicines Mmcp-yju-jfooeix medicines such as acetaminophen or ibuprofen can help reduce pain. Some also help reduce swelling. Take medicine only as directed. Rest the area even if medicines are controlling the pain. Rest Rest the injured area by not using it for 24 hours. When you re ready, return slowly to your normal activities. Rest the injured area often. Don t use or walk on an injured limb if it hurts. 2840-4574 [employer]. [address] [place] [address]. All rights reserved. This information is not intended as a substitute for professional medical care. Always follow yourhealthcare professional's instructions. Additional Information VACCINATE! IT SAVES LIVES! Members of the community who have not yet received the COVID-19 vaccine and would like to receive it can visit one of [facility] vaccine clinics. There are many vaccine clinic locations within the [facility]. For locations and available times, please visit [email or web address]/. It is important to note that some COVID mobile vaccine clinics are held outdoors and may be canceled in rainy or stormy conditions. To learn more about pediatric vaccinations (ages 5-11), we invite you to visit the [facility] webpage. [email or web address] learn more about the COVID-19 vaccine, we invite you to visit the CDC website for a list of frequently asked questions. https://www.cdc.gov/coronavirus/2019-ncov/vaccines/faq.html [facility] Access Instructions: Stay connected with your healthcare team and access your personal medical information anytime with the [facility]. If you would like a full copy of your medical records please contact the [facility] Medical Records Department Monday through Monday between 8a.m. and 4:30p.m. Please follow the directions below to access the portal: 1.Access the email account you provided upon registration to the [facility].2.Look for an invitation email from [facility].3.Open the email and access the invitation link: Accept Invitation to [facility]4.Fill in the required casillas to create your account. Sign into [email or web address] with your username and password that you created in the above steps to stay up to date. You can then view a summary of results, a summary of your visits, and the ability to download your summaries to your computer or send the information securely to a physician. Remember that your healthcare information is confidential, so carefully consider who you will allow to register on the [facility] for access to your information. You can also access the [facility] on the [employer] tabitha. Simply click on Health Records under Canpages and then click on the [facility] logo. HOW TO SAFELY DISPOSE OF PRESCRIPTION MEDICATIONS Please use one of the following methods to safely dispose of your unused medications. 1.Use a drug disposal kit: the drug disposal pouch allows you to safely discard your old and unuseddrugs. Ask your nurse to give you one when you are discharged.2.Visit a local take-back location: Many local pharmacies and police departments have programs that collect old and unwanted prescriptiondrugs. Call your local pharmacy or go to http://ZMP.SmarTots/8E9Fo0v to find one close to you.3.Make use of household items: Use cat litter or old coffee grounds to dispose medications if other options arenot available. Mix your drugs with these household products, seal them in an airtight container andthrow it into the garbage. Call [facility]: [phone] to be sure your drugs can be disposed of in this way. Some medicines may require a different approach.4.Never flush your medications down the toilet. IF YOU HAVE BEEN PRESCRIBED AN OPIOIDS FOR PAIN If you have been prescribed an opioid (such as hydrocodone, oxycodone or morphine), it is critical to understand the possible side effects and risks of opioid pain medications. Even when taken as directed, opioids can have several side effects including: Tolerance, meaning you might need to take more of a medication for the same pain relief. Nausea, vomiting and/or constipation. Sleepiness, dizziness, dry mouth, confusion, depression or itching. Physical dependence, meaning you have withdrawal symptoms when a medication is stopped ? this can develop within a few days. KNOW YOUR RESPONSIBILITIES It is important to know exactly how much and how often to take the opioid pain medications you are prescribed. Never take opioids in higher amounts or more often than prescribed. Do not combine opioids with alcohol or other drugs that cause drowsiness, such as benzodiazepines, also known as benzos,including diazepam and alprazolam, muscle relaxants or sleep aids. Never sell or share prescriptionopioids. This is illegal. Store opioids in a secure place and out of reach of others (including children, family, friends and visitors). The last page(s) of this document has been signed and retained as a CHART COPY Signatures Patient Education Materials Ankle Sprain (Adult) Treating Strains and Sprains Medication Leaflets My discharge plan and instructions have been reviewed and explained to me and I,GOOD [place] LUNA understand my current condition and have read and understand these discharge instructions. I have received a written copy of the plan/instructions. If I have questions, I am aware that I should contact my doctor. 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 HISTORY: ORDERING SYSTEM PROVIDED HISTORY: Reason for Exam: fall, pain FINDINGS: The underlying osseous structures appear well mineralized without evidence of fracture or dislocation. The ankle mortise is well maintained. Mild soft tissue swelling is seen overlying the bilateral malleoli. No radiopaque foreign body is seen. The visualized tibia and fibula are acutely intact. IMPRESSION: No acute fracture or dislocation. Mild soft tissue swelling. Interpreted by: Larry Zarate MD Preliminary Report By: Larry Zarate MD Electronically signed By Larry Zarate MD Dictated Date: 07/20/2024 3:54:33 PM Prelim Date: 07/20/2024 3:56:28 PM Sign Date: 07/20/2024 3:56:28 PM Ordering Provider: [facility]12-28-2024 Note* Exam Date Time Procedure Performing Provider Status 07/20/24 3:35 PM XR Ankle and Foot 6 Views Right LARRY ZARATE MD; Auth (Verified) [id number] ORIGINAL EXAMINATION: 6 XRAY VIEWS OF THE RIGHT FOOT AND ANKLE; TWO XRAY VIEWS OF THE RIGHT TIBIA/FIBULA 07/20/2024 3:35 pm COMPARISON: None. HISTORY: ORDERING SYSTEM PROVIDED HISTORY: Reason for Exam: fall, pain FINDINGS: The underlying osseous structures appear well mineralized without evidence of fracture or dislocation. The ankle mortise is well maintained. Mild soft tissue swelling is seen overlying the bilateral malleoli. No radiopaque foreign body is seen. The visualized tibia and fibula are acutely intact. IMPRESSION: No acute fracture or dislocation. Mild soft tissue swelling. Interpreted by: Larry Zarate MD Preliminary Report By: Larry Zarate MD Electronically signed By Larry Zarate MD Dictated Date: 07/20/2024 3:54:33 PM Prelim Date: 07/20/2024 3:56:28 PM Sign Date: 07/20/2024 3:56:28 PM Ordering Provider: [facility]12-26-2024 Telephone encounter Note* Telephone Encounter - Levi Paniagua LPN - 07/18/2024 12:29 PM EST Left message for pt to contact office. Levi Paniagua LPN [facility]12-26-2024 Telephone encounter Note* Telephone Encounter - Brian Ahmadi APRN.CNP - 07/18/2024 9:04 AM EST Please let the patient know that his labs looked fine with the exception of his TSH, which was slightly elevated. In our encounter, the patient mentioned that he had been missing some doses of his levothyroxine. I would recommend that he try taking consistently over the next 6 weeks and repeat TSH in 6 weeks. Labs placed Brian Ahmadi APRN.CNP [facility]12-20-2024 History of Present illness Narrative* Brian Ahmadi APRN.CNP - 07/12/2024 11:00 AM EST Chief Complaint Patient presents with: Follow Up: 3 month HPI Good De Luna is a 59 year old male who presents here today for Chronic Medical Conditions. Patient is here for routine follow-up. Patient is taking his levothyroxine as prescribed. He is duefor a recheck of his TSH. Last TSH was suppressed. We reduced his dose. Currently taking 150 mcg oflevothyroxine daily. There was some prior discussion in the past where he was taking this medication with other medications. At this time he is taking his levothyroxine without food. He admits to a few missed doses. Patient history of anxiety, depression. He is on Celexa 40 mg daily. He is also on lorazepam as needed for anxiety, panic. He is taking this as needed. Overall he feels okay. He is also following with neurology for cognitive issues. Neurology ordered labs, EEG to further assess. It does not appear that they have been completed. Patient initially states that his confusion,forgetfulness is actually improved. He states that he improved when he started getting allergy injections. States that he was dealing with an inner ear fullness that was causing debilitating symptoms. Past medical history, appointments, medications, allergies reviewed. EXAM: BP 140/88 Pulse 67 Resp 20 Wt 99.8 kg (220 lb) SpO2 98% BMI 36.61 kg/m General Appearance: Well appearing, alert, in no acute distress, well-hydrated, well nourished.. Neck: Supple, no adenopathy; thyroid symmetric, normal size, no bruits. Lungs: Lungs clear to auscultation. No wheezing, rhonchi, rales.. Heart: RRR without murmur, gallop, or rubs. No ectopy. ASSESSMENT/PLAN: 1. Hypothyroidism, unspecified type - ICD9: 244.9, ICD10: E03.9 (primary diagnosis) - Instructed patient on importance of taking on an empty stomach either first thing in the morning or at bedtime. - check TSH today 2. Recurrent major depressive disorder, remission status unspecified (HCC) - ICD9: 296.30, ICD10: F33.9 -Stable, continue Celexa as prescribed 3. Anxiety - ICD9: 300.00, ICD10: F41.9 -Stable, continue Celexa, lorazepam as needed - LORAZEPAM 0.5 MG TABLET 4. Confusion - ICD9: 298.9, ICD10: R41.0 -Improving, but still would recommend labs, EEG to finish workup. Brian Ahmadi APRN.CNP RTO in 6 months, sooner if needed. This note was partly generated using [employer] voice recognition dictation and may contain some misspelled or inaccurate words missed on review. documented in [facility]12[facility]24 NoteHNO ID: [id number] Author: BRIAN AHMADI APRN.CNP Service: ? Author Type: Nurse Practitioner Type: Progress Notes Filed: 07/12/2024 11:22 Note Text: Chief Complaint Patient presents with: Follow Up: 3 month HPI Good De Luna is a 59 year old male who presents here today for Chronic Medical Conditions. Patient is here for routine follow-up. Patient is taking his levothyroxine as prescribed. He is due for a recheck of his TSH. Last TSH was suppressed. We reduced his dose. Currently taking 150 mcg of levothyroxine daily. There was some prior discussion in the past where he was taking this medication with other medications. At this time he is taking his levothyroxine without food. He admits to a few missed doses. Patient history of anxiety, depression. He is on Celexa 40 mg daily. He is also on lorazepam as needed for anxiety, panic. He is taking this as needed. Overall he feels okay. He is also following with neurology for cognitive issues. Neurology ordered labs, EEG to further assess. It does not appear that they have been completed. Patient initially states that his confusion, forgetfulness is actually improved. He states that he improved when he started getting allergy injections. States that he was dealing with an inner ear fullness that was causing debilitating symptoms. Past medical history, appointments, medications, allergies reviewed. EXAM: BP 140/88 Pulse 67 Resp 20 Wt 99.8 kg (220 lb) SpO2 98% BMI 36.61 kg/m? General Appearance: Well appearing, alert, in no acute distress, well-hydrated, well nourished.. Neck: Supple, no adenopathy; thyroid symmetric, normal size, no bruits. Lungs: Lungs clear to auscultation. No wheezing, rhonchi, rales.. Heart: RRR without murmur, gallop, or rubs. No ectopy. ASSESSMENT/PLAN: 1. Hypothyroidism, unspecified type - ICD9: 244.9, ICD10: E03.9 (primary diagnosis) - Instructed patient on importance of taking on an empty stomach either first thing in the morning or at bedtime. - check TSH today 2. Recurrent major depressive disorder, remission status unspecified (HCC) - ICD9: 296.30, ICD10: F33.9 -Stable, continue Celexa as prescribed 3. Anxiety - ICD9: 300.00, ICD10: F41.9 -Stable, continue Celexa, lorazepam as needed - LORAZEPAM 0.5 MG TABLET 4. Confusion - ICD9: 298.9, ICD10: R41.0 -Improving, but still would recommend labs, EEG to finish workup. Brian Ahmadi APRN.REBRANDER RTO in 6 months, sooner if needed. This note was partly generated using [employer] voice recognition dictation and may contain some misspelled or inaccurate words missed on review.[place] [address]-20-2024 Instructions* Patient Instructions* Brian Ahmadi APRN.CNP - 07/12/2024 10:56 AM EST Ativan refill sent Get labs to assess TSH Complete labs and EEG that was ordered by neurology Schedule with neurosurgery See us back in 6 months. Brian Ahmadi APRN.CNP documented in this encounterF[facility]12-[facility]24 Telephone encounter Note * Telephone Encounter - Gypsy Syed APRN.CNP - 06/27/2024 8:11 AM EST Form has been completed and ready for brain picker. Patient has been notified. Gypsy Syed APRN.CNP [facility] Work Phone: [phone]) 425-349812-05-2024 Miscellaneous Notes* Telephone Encounter - Gypsy Syed APRN.CNP - 06/27/2024 8:11 AM EST Form has been completed and ready for brain picker. Patient has been notified. Gypsy Syed APRN.CNP * Telephone Encounter - Meena Garcia LPN - 06/18/2024 4:16 PM EST Patient is calling re: status of form. Needing FRANCIA or will have to pay extra $300 that he does nothave. Meena Garcia LPN * Telephone Encounter - Saniya Santoro LPN - 06/14/2024 2:19 PM EST Patient calling to see if form is completed, he is moving in a week. Patient wants to brain picker form when completed please. * Telephone Encounter - Laura Whaley MA - 06/13/2024 12:00 PM EST 06/06/24 he dropped a form off in the main lobby for pcp to complete. The form was to allow pt to have an emotional support cat without paying a pet fee. Pt asking if this is complete & has it been sent off yet? Scarlet Carvajal LPN * Telephone Encounter - Larua Whaley MA - 06/10/2024 10:08 AM EST Pt dropped off form from [facility] stating that pt is requesting either 1) change in rules, policies, practices or services (due to a disability) to afford him/her full enjoyment of the premises or 2) a physical change (due to disability) to afford him/her full enjoyment of premises. Laura Whaley MA documented in this encounterFostoria City Hospital11-26-2024 Telephone encounter Note * Telephone Encounter - Meena Garcia LPN - 06/18/2024 4:16 PM EST Patient is calling re: status of form. Needing FRANCIA or will have to pay extra $300 that he does nothave. Meena Garcia LPN [facility]11-22-2024 Telephone encounter Note* Telephone Encounter - Saniya Santoro LPN - 06/14/2024 2:19 PM EST Patient calling to see if form is completed, he is moving in a week. Patient wants to brain picker form when completed please. [facility]11-21-[facility] Telephone encounter Note* Telephone Encounter - Laura Whaley MA - 06/13/2024 12:00 PM EST See phone note 06/10/24. Laura Whaley MA [facility]11-21-2024 Telephone encounter Note* Telephone Encounter - Laura Whaley MA - 06/13/2024 12:00 PM EST 06/06/24 he dropped a form off in the main lobby for pcp to complete. The form was to allow pt to have an emotional support cat without paying a pet fee. Pt asking if this is complete & has it been sent off yet? Scarlet Carvajal LPN [facility]11-21-2024 Miscellaneous Notes* Telephone Encounter - Laura Whaley MA - 06/13/2024 12:00 PM EST See phone note 06/10/24. Laura Whaley MA * Telephone Encounter - Scarlet Carvajal LPN - 06/12/2024 2:19 PM EST Pt states on 06/06/24 he dropped a form off in the main lobby for pcp to complete. The form was to allow pt to have an emotional support cat without paying a pet fee. Pt asking if this is complete & has it been sent off yet? Scarlet Carvajal LPN documented in this encounterFostoria City Hospital11-20-2024 Telephone encounter Note * Telephone Encounter - Scarlet Carvajal LPN - 06/12/2024 2:19 PM EST Pt states on 06/06/24 he dropped a form off in the main lobby for pcp to complete. The form was to allow pt to have an emotional support cat without paying a pet fee. Pt asking if this is complete & has it been sent off yet? Scarlet Carvajal LPN [facility]11-18-2024 Telephone encounter Note* Telephone Encounter - Laura Whaley MA - 06/10/2024 10:08 AM EST Pt dropped off form from [facility] stating that pt is requesting either 1) change in rules, policies, practices or services (due to a disability) to afford him/her full enjoyment of the premises or 2) a physical change (due to disability) to afford him/her full enjoyment of premises. Laura Whaley MA [facility]11-15-2024 Telephone encounter Note* Telephone Encounter - Rylie Wing - 06/07/2024 10:33 AM EST Order for Consult to Neurosurgery needs to be edited. Diagnoses is only pulling general neurology providers instead of cerebrovascular providers. Currently unable to schedule. Please contact patient when completed. Thank you, Rylie Wing [facility]11-15-2024 Miscellaneous Notes* Telephone Encounter - Rylie Wing - 06/07/2024 10:33 AM EST Order for Consult to Neurosurgery needs to be edited. Diagnoses is only pulling general neurology providers instead of cerebrovascular providers. Currently unable to schedule. Please contact patient when completed. Thank you, Rylie Wing documented in this encounterFostoria City Hospital11-15-2024 Telephone encounter Note * Telephone Encounter - Calixto Chandler RN - 06/07/2024 10:22 AM EST Caregiver calling with physician referral: Patient referred to Neurosurgery Department. Caregiver reports patient denies any new or worsening symptoms of which a provider is not aware:Yes Caregiver Rylie transferred to [facility] in appointment center for ordered neurosurgery consult. [facility]11-15-2024 Miscellaneous Notes* Telephone Encounter - Calixto Chandler RN - 06/07/2024 10:22 AM EST Caregiver calling with physician referral: Patient referred to Neurosurgery Department. Caregiver reports patient denies any new or worsening symptoms of which a provider is not aware:Yes Caregiver Rylie transferred to [facility] in appointment center for ordered neurosurgery consult. [facility] Telephone encounter Note * Telephone Encounter - Devi Cisse MD - 06/03/2024 3:27 PM EST Please make sure he comes for follow up visit ,he may need help scheduling tests and orders First visit is virtual visit [facility] Work Phone: 1(365) 803-368711-11-2024 Miscellaneous Notes* Telephone Encounter - Devi Cisse MD - 06/03/2024 3:27 PM EST Please make sure he comes for follow up visit ,he may need help scheduling tests and orders First visit is virtual visit * Telephone Encounter - Sofia Munoz MA - 06/03/2024 2:43 PM EST Talk to patient he already answered precheck in questions, I told him if I don't see he logged in Iwill give him a call to help * Telephone Encounter - Sofia Munoz MA - 06/03/2024 2:08 PM EST Left VM letting patient know he has an virtual apt. With Dr. Cisse at 3 pm and that I will try calling closer to 3 pm to see if help is needed with logging in for apt. documented in [facility]Fost[facility]11-11-2024 NoteHNO ID: [id number] Author: DEVI CISSE MD Service: ? Author Type: Physician Type: Progress Notes Filed: 06/09/2024 10:26 Note Text: [facility] [place] June 03, 2024 New Patient VIRTUAL VISIT PROGRESS NOTE This is a virtual visit using [employer] Video Visit. It required patient-provider interaction for the medical decision making as documented below. I have communicated my name and active licensure. The patient's identity and physical location were verified at the time of this visit. Either the patient or their legal customer development representative has been informed of the risks and benefits of -- and alternatives to -- treatment through a remote evaluation and consents to proceed with the evaluation remotely. Good De Luna is a 58 year old man seen for episodic confusion. Trouble with concentration ,not all the time but intermittently. Cerebral palsy and has been on disability since he was 28 years old Lives at his home ,taking care of himself ,he has help at home , No seizures or syncopal episodes He was admitted in [facility] and had an MRI Brain and found to have a venous anomaly He was then sent to see a Neurologist . He is not aware of any seizure like episode ,but aware of confusion episodes. HISTORY REVIEWED (electronic chart updated): PAST MEDICAL HISTORY Diagnosis Date Acid reflux Anxiety state, unspecified Arthritis Cancer (HCC) Cerebral palsy (HCC) Congenital diplegia (HCC) Diverticulitis GERD (gastroesophageal reflux disease) JODEE on CPAP Sleep apnea 09/22/2008 Spinal stenosis Unspecified hypothyroidism PAST SURGICAL HISTORY Procedure Laterality Date COLONOSCOPY 05/13/2024 PAST SURGICAL HISTORY OF trigger finger procedure as a child TONSILLECTOMY HX TONSILLECTOMY PRIMARY/SECONDARY Tonsillectomy FAMILY HISTORY Adopted: Yes Problem Relation Age of Onset Diabetes Mother Thyroid Maternal Grandmother Social History Tobacco Use Smoking status: Former Current packs/day: 0.00 Average packs/day: 1 pack/day for 30.0 years (30.0 ttl pk-yrs) Types: Cigarettes Start date: 07/29/1993 Quit date: 07/29/2023 Years since quittin.8 Smokeless tobacco: Never Tobacco comments: Pt has cut back to 1/4 pack daily. Vaps off and on Vaping Use Vaping status: Some Days Substance Use Topics Alcohol use: Yes Comment: 3/4 beers per week Drug use: No Current Outpatient Medications Medication Sig levothyroxine (SYNTHROID) 150 mcg tablet Take 1 tablet by mouth once daily. omeprazole (PRILOSEC) 20 mg capsule take 1 capsule by mouth once daily cholecalciferol, vitamin D3, (VITAMIN D3 ORAL) Take 2,000 mcg by mouth once daily. citalopram (CELEXA) 40 mg tablet Take 1 tablet by mouth once daily. CPAP Initiate CPAP @ 7 cm of water with humidification. Mask (per patient preference) optional chin strap (if indicated) , filters, tubing, humidifier and lifetime supplies. multivit-min/folic/vit K/lycop (MEN'S 50 PLUS MULTIVITAMIN ORAL) Take 1 tablet by mouth once daily. vitamin b complex capsule Take 1 capsule by mouth once daily. No current facility-administered medications for this visit. ALLERGIES No Known Allergies REVIEW OF SYSTEMS: GENERAL: no recent change in weight PHYSICAL EXAMINATION: VIDEO EXAM: (if completed, performed via video enabled technology) GENERAL: alert and appropriate, in no distress and well-hydrated, well nourished ASSESSMENT: (R41.0) Confusion (primary encounter diagnosis) PLAN: [facility] on 06/03/24 VITAMIN B12 THYROID STIMULATING HORMONE FOLATE, SERUM METHYLMALONIC ACID MAGNESIUM CONSULT TO NEUROSURGERY EPIL EEG ROUTINE *Canceled* EPIL EEG ROUTINE There are no Patient Instructions on file for this visit. I spent a total of 55 minutes on the date of the service which included preparing to see the patient, [id number] patient care, completing clinical documentation, obtaining and/or reviewing separately obtained history, performing a medically appropriate examination, and ordering medications, tests, or procedures Devi Cisse MD My final recommendations will be communicated back to the requesting physician by way of shared medical record or letter via US mail. Referring physician:No referring provider defined for this encounter. Patient presents with: New Patient Accompanied by Self. Referred by No referring provider defined for this encounter.. HISTORY AND PHYSICAL Mr. De Luna is a 58 year old male, being seen . Past Medical History PAST MEDICAL HISTORY Diagnosis Date Acid reflux Anxiety state, unspecified Arthritis Cancer (HCC) Cerebral palsy (HCC) Congenital diplegia (HCC) Diverticulitis GERD (gastroesophageal reflux disease) JODEE on CPAP Sleep apnea 09/22/2008 Spinal stenosis Unspecified hypothyroidism Current Medications Current Outpatient Medications Medication Sig Dispense Refill levothyroxine (SYNTHROID) 150 mcg tablet Ta (more content not included)... [facility]11-11-2024 History of Present illness Narrative* Devi Cisse MD - 06/03/2024 3:04 PM EST Images from the original note were not included. [facility] [place] June 03, 2024 New Patient VIRTUAL VISIT PROGRESS NOTE This is a virtual visit using [employer] Video Visit. It required patient- provider interaction for the medical decision making as documented below. I have communicated my name and active licensure. The patient's identity and physical location wereverified at the time of this visit. Either the patient or their legal customer development representative has been informed of the risks and benefits of -- and alternatives to -- treatment through a remote evaluation andconsents to proceed with the evaluation remotely. Good De Luna is a 58 year old man seen for episodic confusion. Trouble with concentration ,not all the time but intermittently. Cerebral palsy and has been on disability since he was 28 years old Lives at his home ,taking care of himself ,he has help at home , No seizures or syncopal episodes He was admitted in [facility] and had an MRI Brain and found to have a venous anomaly He was then sent to see a Neurologist . He is not aware of any seizure like episode ,but aware of confusion episodes. HISTORY REVIEWED (electronic chart updated): PAST MEDICAL HISTORY Diagnosis Date Acid reflux Anxiety state, unspecified Arthritis Cancer (HCC) Cerebral palsy (HCC) Congenital diplegia (HCC) Diverticulitis GERD (gastroesophageal reflux disease) JODEE on CPAP Sleep apnea 09/22/2008 Spinal stenosis Unspecified hypothyroidism PAST SURGICAL HISTORY Procedure Laterality Date COLONOSCOPY 05/13/2024 PAST SURGICAL HISTORY OF trigger finger procedure as a child TONSILLECTOMY HX TONSILLECTOMY PRIMARY/SECONDARY <AGE 14 Tonsillectomy FAMILY HISTORY Adopted: Yes Problem Relation Age of Onset Diabetes Mother Thyroid Maternal Grandmother Social History Tobacco Use Smoking status: Former Current packs/day: 0.00 Average packs/day: 1 pack/day for 30.0 years (30.0 ttl pk-yrs) Types: Cigarettes Start date: 07/29/1993 Quit date: 07/29/2023 Years since quittin.8 Smokeless tobacco: Never Tobacco comments: Pt has cut back to 1/4 pack daily. Vaps off and on Vaping Use Vaping status: Some Days Substance Use Topics Alcohol use: Yes Comment: 3/4 beers per week Drug use: No Current Outpatient Medications Medication Sig levothyroxine (SYNTHROID) 150 mcg tablet Take 1 tablet by mouth once daily. omeprazole (PRILOSEC) 20 mg capsule take 1 capsule by mouth once daily cholecalciferol, vitamin D3, (VITAMIN D3 ORAL) Take 2,000 mcg by mouth once daily. citalopram (CELEXA) 40 mg tablet Take 1 tablet by mouth once daily. CPAP Initiate CPAP @ 7 cm of water with humidification. Mask (per patient preference) optional chinstrap (if indicated) , filters, tubing, humidifier and lifetime supplies. multivit-min/folic/vit K/lycop (MEN'S 50 PLUS MULTIVITAMIN ORAL) Take 1 tablet by mouth once daily. vitamin b complex capsule Take 1 capsule by mouth once daily. No current facility-administered medications for this visit. ALLERGIES No Known Allergies REVIEW OF SYSTEMS: GENERAL: no recent change in weight PHYSICAL EXAMINATION: VIDEO EXAM: (if completed, performed via video enabled technology) GENERAL: alert and appropriate, in no distress and well-hydrated, well nourished ASSESSMENT: (R41.0) Confusion (primary encounter diagnosis) PLAN: [facility] on 06/03/24 VITAMIN B12 THYROID STIMULATING HORMONE FOLATE, SERUM METHYLMALONIC ACID MAGNESIUM CONSULT TO NEUROSURGERY EPIL EEG ROUTINE *Canceled* EPIL EEG ROUTINE There are no Patient Instructions on file for this visit. I spent a total of 55 minutes on the date of the service which included preparing to see the patient, [id number] patient care, completing clinical documentation, obtaining and/or reviewing separately obtained history, performing a medically appropriate examination, and ordering medications, tests, or procedures Devi Cisse MD My final recommendations will be communicated back to the requesting physician by way of shared medical record or letter via US mail. Referring physician:No referring provider defined for this encounter. Patient presents with: New Patient Accompanied by Self. Referred by No referring provider defined for this encounter.. HISTORY AND PHYSICAL Mr. De Luna is a 58 year old male, being seen . Past Medical History PAST MEDICAL HISTORY Diagnosis Date Acid reflux Anxiety state, unspecified Arthritis Cancer (HCC) Cerebral palsy (HCC) Congenital diplegia (HCC) Diverticulitis GERD (gastroesophageal reflux disease) JODEE on CPAP Sleep apnea 09/22/2008 Spinal stenosis Unspecified hypothyroidism Current Medications Current Outpatient Medications Medication Sig Dispense Refill levothyroxine (SYNTHROID) 150 mcg tablet Take 1 tablet by mouth once daily. 90 tablet 3 omeprazole (PRILOSEC) 20 mg capsule take 1 capsule by mouth once daily 90 capsule 3 cholecalciferol, vitamin D3, (VITAMIN D3 ORAL) Take 2,000 mcg by mouth once daily. citalopram (CELEXA) 40 mg tablet Take 1 tablet by mouth once daily. 90 tablet 3 CPAP Initiate CPAP @ 7 cm of water with humidification. Mask (per patient preference) optional chinstrap (if indicated) , filters, tubing, humidifier and lifetime supplies. 1 Each 0 multivit-min/folic/vit K/lycop (MEN'S 50 PLUS MULTIVITAMIN ORAL) Take 1 tablet by mouth once daily. vitamin b complex capsule Take 1 capsule by mouth once daily. No current facility-administered medications for this visit. Review of Systems: As shown in history All other systems reviewed and are negative. Objective Physical Exam There were no vitals taken for this visit. Neurological Exam MENTAL STATUS: Alert, oriented to person, place and time and Follows commands CRANIAL NERVES: EOM's intact, Extraocular movements intact, Face symmetric, No dysarthria, and Shoulder shrug intact and symmetric MOTOR: No drift and Normal tone MOTOR STRENGTH: Upper and lower extremity 5/5 bilaterally REFLEXES: UE and LE reflexes are equal and reactive SENSATION: Intact light touch COORDINATION: Finger-to- nose-finger intact bilaterally GAIT: Normal-based Data Diagnostic tests reviewed for today's visit: LABS: Lab Results Component Value Date PLT 242 12/14/2023 HB 14.7 12/14/2023 HCT 45.5 12/14/2023 ALB 4.6 03/12/2024 CA 9.6 03/12/2024 TBILI 0.6 03/12/2024 ALKPHOS 107 03/12/2024 AST 23 03/12/2024 GLUC 89 03/12/2024 BUN 21 03/12/2024 NA 137 03/12/2024 K 4.2 03/12/2024 CHLOR 99 03/12/2024 CO2 25 03/12/2024 ANION 13 03/12/2024 ALT 29 03/12/2024 Lab Results Component Value Date WSR 10 05/20/2021 CRP 3.0 (H) 05/20/2021 No results found for: USCRP Lab Results Component Value Date CHOL 172 06/07/2017 CHOL 182 06/03/2013 CHOL 196 02/23/2012 Lab Results Component Value Date LDL 101 06/07/2017 LDL 112 06/03/2013 LDL 119 02/23/2012 Lab Results Component Value Date HDL 46 06/07/2017 HDL 52 06/03/2013 HDL 51 02/23/2012 Lab Results Component Value Date TG 123 06/07/2017 TG 88 06/03/2013 TG 131 02/23/2012 No results found for: HBA1C Lab Results Component Value Date TSH 0.123 (L) 04/12/2024 TSH 10.400 (H) 03/12/2024 TSH 3.070 12/14/2023 Lab Results Component Value Date B12 464 12/14/2023 B12 918 09/14/2023 B12 289 05/20/2021 IMAGING: Last MRI Cervical Spine - Impression Only MRI CERVICAL SPINE WO IVCON Exam End: 06/03/2021 9:59 AM (Final result) Impression: IMPRESSION: Multilevel spondylotic changes in the cervical spine as detailed, most pronounced at T6-7, where there is mild to moderate canal narrowing, with mild chronic indentation of the ventral cord without signal abnormality. Varying degrees of foraminal narrowing as detailed. Edematous degenerative marrow endplate changes about the C6-7 level and partially visualized in the upper thoracic spine at the T3-4 level. Likely small intraosseous hemangioma at T3. Nonspecific small focus of ... COLONOSCOPY DIAGNOSTIC Result Date: 05/13/2024 [facility] Gastrointestinal Endoscopy Patient Name: Good De Luna Procedure Date: 05/13/2024 8:00 AM Date of : 1965 Admit Type: Outpatient Age: 58 Room: [facility] Gender: Male Note Status: Finalized Attending MD: Gilson Bar , , [id number] Procedure: Colonoscopy Indications: Evaluation of unexplained GI bleeding presenting with Hematochezia Providers: Gilson Bar Patient Profile: This is a 58 year old male. Refer to note in patient chart for documentation of history and physical. Last Colonoscopy: none. The patient's first colonoscopy is today. Referring Physician: Gilson Bar (Referring MD) Medicines: See the Anesthesia note for documentation of the administered medications Requesting Provider: Procedure: Pre-Anesthesia Assessment: - Prior to the procedure, a History and Physical was performed, and patient medications and allergies were reviewed. The patient is competent. The risks and benefits of the procedure and the sedation options and risks were discussed with the patient. All questions were answered and informed consent was obtained. Patient identification and proposed procedure were verified by the physician, the nurse, the anesthesiologist and the supervisor type photography in the pre-procedure area in the endoscopy suite. Mental Status Examination: alert and oriented. Airway Examination: normal oropharyngeal airway andneck mobility. Respiratory Examination: clear to auscultation. CV Examination: normal. ProphylacticAntibiotics: The patient does not require prophylactic antibiotics. Prior Anticoagulants: The patient has taken no anticoagulant or antiplatelet agents. ASA Grade Assessment: III - A patient with severe systemic disease. After reviewing the risks and benefits, the patient was deemed in satisfactorycondition to undergo the procedure. The anesthesia plan was to use monitored anesthesia care (MAC).Immediately prior to administration of medications, the patient was re-assessed for adequacy to receive sedatives. The heart rate, respiratory rate, oxygen saturations, blood pressure, adequacy of pulmonary ventilation, and response to care were monitored throughout the procedure. The physical status of the patient was re-assessed after the procedure. After I obtained informed consent, the scope was passed under direct vision. Throughout the procedure, the patient's blood pressure, pulse, and ox ygen saturations were monitored continuously. The Colonoscope was introduced through the anus and advanced to the cecum, identified by the appendiceal orifice, ileocecal valve and palpation. The colonoscopy was somewhat difficult due to multiple diverticula in the colon and poor bowel prep. Successful completion of the procedure was aided by applying abdominal pressure and lavage. The patient tolerated the procedure well. The quality of the bowel preparation was poor. The ileocecal valve, appendiceal orifice, and rectum were photographed. Scope Withdrawal Time: 0 hours 54 minutes 43 seconds Moderate Sedation: See the other procedure note for documentation of moderate sedation with intraservice time. MAC anesthesia was administered by the anesthesia team. Total Procedure Duration: 1 hour 3minutes 2 seconds Findings: Hemorrhoids were found on perianal exam. An 8 mm polyp was found in theascending colon. The polyp was sessile. The polyp was removed with a cold snare. Resection and retrieval were complete. Verification of patient identification for the specimen was done. Estimated blood loss was minimal. A 3 mm polyp was found in the ascending colon. The polyp was sessile. The polypwas removed with a cold biopsy forceps. Resection and retrieval were complete. Verification of patient identification for the specimen was done. Estimated blood loss was minimal. A 15 mm polyp was found in the sigmoid colon. The polyp was pedunculated. The polyp was removed with a hot snare. Resection and retrieval were complete. Verification of patient identification for the specimen was done. Estimated blood loss: none. Area was tattooed with an injection of 3 mL of Spot (carbon black). Two sessile polyps were found in the sigmoid colon. The polyps were 1 to 5 mm in size. These polyps were removed with a cold biopsy forceps. Resection and retrieval were complete. Verification of patient identification for the specimen was done. Estimated blood loss was minimal. To prevent bleeding afterthe biopsy, one hemostatic clip was successfully placed (MR safe). 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 There was no bleeding at the end of the procedure. Eight sessile polyps were found in the rectum. The polyps were 1 to 4 mm in size. These polyps were removed with a cold biopsy forceps. Resection and retrieval were complete. Many large-mouthed, medium-mouthed and small-mouthed diverticula were found in the recto-sigmoid colon, sigmoid colon and descending colon. There was narrowing of the colon in association with the diverticular opening. Purulent discharge was seen in association with the diverticular opening. There was no evidence of diverticular bleeding. Impression: - Preparation of the colon was poor. - Hemorrhoids found on perianal exam. - One 8 mm polyp in the ascending colon,removed with a cold snare. Resected and retrieved. - One 3 mm polyp in the ascending colon, removed with a cold biopsy forceps. Resected and retrieved. - One 15 mm polyp in the sigmoid colon, removedwith a hot snare. Resected and retrieved. Tattooed. - Two 1 to 5 mm polyps in the sigmoid colon, removed with a cold biopsy forceps. Resected and retrieved. 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 Clip(MR safe) was placed. - Eight 1 to 4 mm polyps in the rectum, removed with a cold biopsy forceps. Resected and retrieved. - Moderate diverticulosis in the recto-sigmoid colon, in the sigmoid colon and in the descending colon. There was narrowing of the colon in association with the diverticular opening. Purulent discharge was seen in association with the diverticular opening. There was no evidence of diverticular bleeding. Recommendation: - [facility]. - Resume regular diet. - Await pathology results. - Repeat colonoscopy date to be determined after pending pathology results are reviewed for surveillance based on pathology results. - Return to referring physician in 2 weeks. - Return to my office in 1 week. - Patient has a contact number available for emergencies. The signs and symptoms of potential delayed complications were discussed with the patient. Return to normal activities tomorrow. Written discharge instructions were provided to the patient. - Continue present medications. Procedure Code(s): --- Professional --- 34739, Colonoscopy, flexible; with removal of tumor(s), polyp(s), or other lesion(s) by snare technique 66116, 59, Colonoscopy, flexible; with biopsy, single or multiple 75729, Colonoscopy, flexible; with directed submucosal injection(s), any substance Diagnosis Code(s): --- Professional --- K64.9, Unspecified hemorrhoids D12.2, Benign neoplasm of ascending colon D12.5, Benign neoplasm of sigmoid colon D12.8, Benign neoplasm of rectum K92.1, Melena (includes Hematochezia) K57.30, Diverticulosis of large intestine without perforation or abscess without bleeding CPT copyright 2020 [employer]. All rights reserved. The codes documented in this report are preliminary and upon counter dish carrier review may be revisedto meet current compliance requirements. Attending Participation: I personally performed the entireprocedure. Scope In: 8:25:49 AM Scope Out: 9:28:51 AM GILSON BAR, DO Gilson Bar, 05/13/2024 9:50:25 AM This report has been signed electronically by Gilson Bar Number of Addenda: 0 Note Initiated On: 05/13/2024 8:00 AM Estimated Blood Loss: Estimated blood loss was minimal. Social Determinants of Health Tobacco Use: Medium Risk (05/22/2024) Patient History Smoking Tobacco Use: Former Smokeless Tobacco Use: Never Passive Exposure: Not on file Alcohol Use: Alcohol Misuse (04/30/2024) AUDIT-C Frequency of Alcohol Consumption: 2-4 times a month Average Number of Drinks: 3 or 4 Frequency of Binge Drinking: Monthly Financial Resource Strain: Low Risk (04/30/2024) Overall Financial Resource Strain (CARDIA) Difficulty of Paying Living Expenses: Not hard at all Food Insecurity: No Food Insecurity (05/13/2024) Hunger Vital Sign Worried About Running Out of Food in the Last Year: Never true Ran Out of Food in the Last Year: Never true Transportation Needs: No Transportation Needs (05/13/2024) PRAPARE - Transportation Lack of Transportation (Medical): No Lack of Transportation (Non-Medical): No Physical Activity: Inactive (04/30/2024) Exercise Vital Sign Days of Exercise per Week: 0 days Minutes of Exercise per Session: 0 min Stress: Stress Concern Present (04/30/2024) [place] [facility] [employer] - Occupational Stress Questionnaire Feeling of Stress : To some extent Social Connections: Socially Isolated (04/30/2024) Social Connection and Isolation Panel [NHANES] Frequency of Communication with Friends and Family: More than three times a week Frequency of Social Gatherings with Friends and Family: More than three times a week Attends Sikh Services: Never Active Member of Clubs or Organizations: No Attends Club or Organization Meetings: Never Marital Status: Never Intimate Partner Violence: Not At Risk (05/13/2024) Safe at Home? Fear of Current or Ex-Partner: No Emotionally Abused: No Physically Abused: No Sexually Abused: No Safe at Home?: Yes Depression: Not at risk (04/24/2024) PHQ-2 PHQ-2 Score: 0 Housing Stability: Low Risk (05/13/2024) Housing Stability Vital Sign Unable to Pay for Housing in the Last Year: No Number of Times Moved in the Last Year: 1 Homeless in the Last Year: No Utilities: Not At Risk (05/13/2024) [facility] Utilities Threatened with loss of utilities: No Area Deprivation Index: High Risk (08/15/2023) Area Deprivation Index National Score (1-100), lower number is lower risk: 75 State Score (1-10), lower number is lower risk: 6 Data from: https://www.neighborhoodatlas.[facility]/. Last address used for calculation: [address] Diagnosis: (R41.0) Confusion (primary encounter diagnosis) IMP/PLAN: Good De Luna is 58 year old male, here today for episodes of confusion . MRI Brain showed venous anomaly Will do EEG r/o seizure [facility] on 06/03/24 VITAMIN B12 THYROID STIMULATING HORMONE FOLATE, SERUM METHYLMALONIC ACID MAGNESIUM CONSULT TO NEUROSURGERY EPIL EEG ROUTINE *Canceled* EPIL EEG ROUTINE Devi Cisse MD [facility] [place] Department of Neurology Total time in minutes spent with patient, reviewing records, labs, imaging, formulating plan, and documentin minutes with more than 50% of the time spent in patient education/counselling/coordinating care with the patient and /or family. documented in this encounterFostoria City [facility]11-11-2024 Telephone encounter Note * Telephone Encounter - Sofia Munoz MA - 06/03/2024 2:43 PM EST Talk to patient he already answered precheck in questions, I told him if I don't see he logged in Iwill give him a call to help [facility]11-11-2024 Telephone encounter Note* Telephone Encounter - Sofia Munoz MA - 06/03/2024 2:08 PM EST Left VM letting patient know he has an virtual apt. With Dr. Cisse at 3 pm and that I will try calling closer to 3 pm to see if help is needed with logging in for apt. [facility]10-30-2024 NoteHNO ID: [id number] Author: JENNIFER MCGHEE APRN.REBRANDER Service: ? Author Type: Nurse Practitioner Type: Progress Notes Filed: 05/22/2024 14:48 Note Text: FOLLOW UP VISIT - ENDOSCOPY Good De Luna 1965 [id number] REFERRING PHYSICIAN: No referring provider defined for this encounter. Good De Luna is a patient I am following for rectal bleeding. Dr. Bar performed lower endoscopy on 05/12/24. The patient was found to have Impression: - Preparation of the colon was poor. - Hemorrhoids found on perianal exam. - One 8 mm polyp in the ascending colon, removed with a cold snare. Resected and retrieved. - One 3 mm polyp in the ascending colon, removed with a cold biopsy forceps. Resected and retrieved. - One 15 mm polyp in the sigmoid colon, removed with a hot snare. Resected and retrieved. Tattooed. - Two 1 to 5 mm polyps in the sigmoid colon, removed with a cold biopsy forceps. Resected and retrieved. 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 Clip (MR safe) was placed. - Eight 1 to 4 mm polyps in the rectum, removed with a cold biopsy forceps. Resected and retrieved. - Moderate diverticulosis in the recto-sigmoid colon, in the sigmoid colon and in the descending colon. There was narrowing of the colon in association with the diverticular opening. Purulent discharge was seen in association with the diverticular opening. There was no evidence of diverticular bleeding. Pathology demonstrated: FINAL DIAGNOSIS A. Ascending colon polyps, biopsy: -Tubular adenoma fragments (x4). -Separate fragments of serrated polyp, see comment. B. Sigmoid colon polyp at 40 cm, biopsy: -Hyperplastic polyp. C. Sigmoid colon polyps, biopsy: -Multiple fragments of hyperplastic polyps. D. Rectum polyps, biopsy: -Tubular adenoma fragments (x 2). -Multiple fragments of hyperplastic polyps. Diagnosis Comment Comment A: The histologic features in these polyps do not reach our threshold for sessile serrated adenoma/polyp. Nonetheless, given the anatomic location, close colonoscopic follow-up is recommended. The patient notes no complaints since the procedure. Jaquan was admitted prior to colonoscopy to complete bowel prep d/t hx of CP. Prep was poor. Recommend 2 days of clears for next colonoscopy. VITALS: There were no vitals taken for this visit. General: patient is alert, cooperative, pleasant and in no acute distress On examination, the abdomen is benign. Assessment ASSESSMENT/PLAN: 1. History of colonic polyps - ICD9: V12.72, ICD10: Z86.0100 The operative findings and pathology report were reviewed with the patient, and the patient has had the opportunity to ask questions and have questions answered. If the patient notes any problems or changes in bowel function, the patient should contact me immediately. Otherwise I recommend follow up endoscopy in 1 year. HM updated and recall letter generated. Discussed treatment plan and patient voices understanding. Patient's questions answered appropriately. Medications and potential side effects were discussed and patient voices understanding. Return to the office as scheduled or as needed for worsening/no improvement. Jennifer Mcghee APRN.[facility]10-30-2024 History of Present illness Narrative* Jennifer Mcghee APRN.REBRANDER - 05/22/2024 1:33 PM EDT FOLLOW UP VISIT - ENDOSCOPY Good De Luna 1965 [id number] REFERRING PHYSICIAN: No referring provider defined for this encounter. Good De Luna is a patient I am following for rectal bleeding. Dr. Bar performed lower endoscopy on 05/12/24. The patient was found to have Impression: - Preparation of the colon was poor. - Hemorrhoids found on perianal exam. - One 8 mm polyp in the ascending colon, removed with a cold snare. Resected and retrieved. - One 3 mm polyp in the ascending colon, removed with a cold biopsy forceps. Resected and retrieved. - One 15 mm polyp in the sigmoid colon, removed with a hot snare. Resected and retrieved. Tattooed. - Two 1 to 5 mm polyps in the sigmoid colon, removed with a cold biopsy forceps. Resected and retrieved. 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 Clip (MR safe) was placed. - Eight 1 to 4 mm polyps in the rectum, removed with a cold biopsy forceps. Resected and retrieved. - Moderate diverticulosis in the recto-sigmoid colon, in the sigmoid colon and in the descending colon. There was narrowing of the colon in association with the diverticular opening. Purulent discharge was seen in association with the diverticular opening. There was no evidence of diverticular bleeding. Pathology demonstrated: FINAL DIAGNOSIS A. Ascending colon polyps, biopsy: -Tubular adenoma fragments (x4). -Separate fragments of serrated polyp, see comment. B. Sigmoid colon polyp at 40 cm, biopsy: -Hyperplastic polyp. C. Sigmoid colon polyps, biopsy: -Multiple fragments of hyperplastic polyps. D. Rectum polyps, biopsy: -Tubular adenoma fragments (x 2). -Multiple fragments of hyperplastic polyps. Diagnosis Comment Comment A: The histologic features in these polyps do not reach our threshold for sessile serrated adenoma/polyp. Nonetheless, given the anatomic location, close colonoscopic follow-up is recommended. The patient notes no complaints since the procedure. Jaquan was admitted prior to colonoscopy to complete bowel prep d/t hx of CP. Prep was poor. Recommend 2 days of clears for next colonoscopy. VITALS: There were no vitals taken for this visit. General: patient is alert, cooperative, pleasant and in no acute distress On examination, the abdomen is benign. Assessment ASSESSMENT/PLAN: 1. History of colonic polyps - ICD9: V12.72, ICD10: Z86.0100 The operative findings and pathology report were reviewed with the patient, and the patient has hadthe opportunity to ask questions and have questions answered. If the patient notes any problems or changes in bowel function, the patient should contact me immediately. Otherwise I recommend follow up endoscopy in 1 year. HM updated and recall letter generated. Discussed treatment plan and patient voices understanding. Patient's questions answered appropriately. Medications and potential side effects were discussed and patient voices understanding. Return to the office as scheduled or as needed for worsening/no improvement. Jennifer Mcghee APRN.PATTIE documented in this encounterFostoria City Hospital10-25-2024 Instructions* Patient Instructions* Prema Turner APRN.PATTIE - 05/17/2024 12:58 PM EDT You have created abrasions to your bilateral lower legs. I recommend that 2 times per day you gently wash the area with soap and water and apply a fresh layer of antibiotic ointment and a clean dressing. Please monitor the area for any signs of increased redness, swelling, or fevers and report to the ER for further evaluation otherwise follow-up with your family doctor. documented in this encounterFostoria City Hospital10-25-2024 NoteHNO ID: [id number] Author: PREMA TURNER APRN.CNP Service: ? Author Type: Nurse Practitioner Type: Progress Notes Filed: 05/17/2024 13:10 Note Text: This note was created using [employer]. Subjective Good De Luna is a 58 year old male. HPI Pt was walking on the treadmill, lost his balance, and as he was trying to catch himself the treadmill was spinning creating abrasions to the bilateral anterior lower legs. Each abrasion is approximately 3 cm in length by approximately 1 cm wide. Left abrasion just to the cutaneous layers. Right abrasion has not broken through the cutaneous layers Review of Systems Skin: Positive for wound. Objective BP 110/71 Pulse (!) 54 Temp 36.4 ?C (97.5 ?F) Resp 20 Wt 101.8 kg (224 lb 6.9 oz) SpO2 97% BMI 37.35 kg/m? Physical Exam Vitals and nursing note reviewed. Constitutional: General: He is not in acute distress. Appearance: Normal appearance. He is not ill-appearing. HENT: Head: Normocephalic. Pulmonary: Effort: Pulmonary effort is normal. Musculoskeletal: General: Normal range of motion. Cervical back: Normal range of motion. Skin: General: Skin is warm and dry. Comments: Abrasions as noted in HPI Neurological: General: No focal deficit present. Mental Status: He is alert. Psychiatric: Mood and Affect: Mood normal. Behavior: Behavior normal. Assessment and Plan ASSESSMENT/PLAN: 1. Abrasion of lower leg, unspecified laterality, initial encounter - ICD9: 916.0, ICD10: S80.819A Patient had clean the wound at home and here in the department I applied a layer of bacitracin antibiotic ointment nonadherent dressing and Coban. Patient was sent home with some additional supplies. He is to follow-up with his PCP and otherwise go to the ER for any signs of increased swelling, redness, or fever. Prema Turner APR[facility]10[facility] History of Present illness Narrative* Prema Turner APRN.PATTIE - 05/17/2024 12:51 PM EDT Images from the original note were not included. This note was created using TrackR. Subjective Good De Luna is a 58 year old male. HPI Pt was walking on the treadmill, lost his balance, and as he was trying to catch himself the treadmill was spinning creating abrasions to the bilateral anterior lower legs. Each abrasion is approximately 3 cm in length by approximately 1 cm wide. Left abrasion just to the cutaneous layers. Right abrasion has not broken through the cutaneous layers Review of Systems Skin: Positive for wound. Objective BP 110/71 Pulse (!) 54 Temp 36.4 C (97.5 F) Resp 20 Wt 101.8 kg (224 lb 6.9 oz) SpO2 97% BMI 37.35 kg/m Physical Exam Vitals and nursing note reviewed. Constitutional: General: He is not in acute distress. Appearance: Normal appearance. He is not ill-appearing. HENT: Head: Normocephalic. Pulmonary: Effort: Pulmonary effort is normal. Musculoskeletal: General: Normal range of motion. Cervical back: Normal range of motion. Skin: General: Skin is warm and dry. Comments: Abrasions as noted in HPI Neurological: General: No focal deficit present. Mental Status: He is alert. Psychiatric: Mood and Affect: Mood normal. Behavior: Behavior normal. Assessment and Plan ASSESSMENT/PLAN: 1. Abrasion of lower leg, unspecified laterality, initial encounter - ICD9: 916.0, ICD10: S80.819A Patient had clean the wound at home and here in the department I applied a layer of bacitracin antibiotic ointment nonadherent dressing and Coban. Patient was sent home with some additional supplies.He is to follow-up with his PCP and otherwise go to the ER for any signs of increased swelling, redness, or fever. Prema Turner APRN.REBRANDER documented in this encounterFostoria City Hospital10-24-2024 Telephone encounter Note * Telephone Encounter - Laura Whaley MA - 05/16/2024 4:33 PM EDT Mailed. Laura Whaley MA [facility]10-24-2024 Miscellaneous Notes* Telephone Encounter - Laura Whaley MA - 05/16/2024 4:33 PM EDT Mailed. Laura Whaley MA * Telephone Encounter - Mathew Cobian MD - 05/16/2024 4:24 PM EDT Letter done Mathew Cobian MD * Telephone Encounter - Ashlyn London RN - 05/16/2024 2:34 PM EDT Patient asking pcp to write an updated letter, stating he needs an emotional support animal. Reports he is moving and the place he's moving to needs an updated letter. [facility], [facility] Address verified. documented in this encounterFostoria City Hospital10-24-2024 Telephone encounter Note * Telephone Encounter - Mathew Cobian MD - 05/16/2024 4:24 PM EDT Letter done Mathew Cobian MD [facility]10-24-2024 Telephone encounter Note* Telephone Encounter - Ashlyn London RN - 05/16/2024 2:34 PM EDT Patient asking pcp to write an updated letter, stating he needs an emotional support animal. Reports he is moving and the place he's moving to needs an updated letter. Please send to patient, via [employer]. Address verified. [facility]10-22-2024 NoteHNO ID: [id number] Author: SP SAN RN Service: ? Author Type: Registered Nurse Type: Progress Notes Filed: 05/14/2024 14:26 Note Text: Transition Care Management (TCM) Initial Outreach PCP Update / Actionable Items Declined PCP TCM appointment from 05/13/24 discharge N/A - No specialty updates needed Patient Source: In-Network Discharge Initial outreach: TCM discharge report Outreach Summary: PCP TCM - declined Spoke with the patient States everything is going well since discharge No mention of any further new or worsening symptoms at this time. Offered further Discharge AVS review which includes Medication Schedule, Medications needs/concerns, Social Work, Behavioral Health Social Work, equipment, follow up instructions, politely declined. Please contact PCP team for questions, needs or concerns. Patient discharged from [facility] Discharge date: 05/13/24 Admitted for: Rectal bleeding Readmission Risk: 6 Value-Based Contract: ACO Contact: Contact made with patient: Yes Hi, my name is Sp San RN and I am calling from the [facility] on behalf of your Primary Care Provider, Mathew Cobian MD. I understand you were recently in the hospital, so I am calling to check in with you to ensure you are feeling well now that you are home. May I ask you a few questions related to your hospital stay and well-being? Yes Spoke to: Patient Validation: Validated the person spoken to is actively involved in the patient's care. The patient was identified by Name and Date of . Symptoms: Are you feeling about the same, better or worse since leaving the hospital? Better Medications: Do you have any questions about taking your medications, including which medications you should be on, or do you need refills on your medications? No Medication Review: Declined at this time per patient preference Discharge Instructions: Your Discharge Instructions / After Visit Summary (AVS) are important in guiding you through the recovery process. Do you have any questions related to your discharge instructions? No Home Care: Were you discharged with home care? No Equipment: Do you have all the necessary equipment and supplies needed at your home? Yes The patient verbalizes understanding the use of the equipment and supplies Social: We would like to make sure you have what you need so that your basics needs are met - including your personal safety, food, housing and medications. Would you like to speak with a social work steam turbine assembler to help give you support for any of these needs? No It can be normal to feel anxious or down during a time like this. Would you like to talk to a mental health professional about how you have been feeling? No Action Taken: No needs verbalized. No action required. Follow-Up Appointment: [Appointment / TCM Follow-up within 14 days] I would like to help you schedule a hospital follow-up virtual or telephone visit with your PCP. This is a great way for you to connect with your provider to ensure you have safely transitioned home. If you are agreeable, I will send your request to a shape brick molder who will contact and assist you with that appointment. This will give you an opportunity to ask any questions or address any concerns you may have with your PCP. Inform the patient that if they have any questions or concerns prior to that appointment, to call their PCP's office right away. Appointment Action: No action required, patient declines appointment. Education N/A Targets addressed / completed during outreach: Contact patient within two (2) business days Outreach Outcome: Declines all TCM outreach Care Management partners utilized: N/A Sp San RN May 14, 2024 2:25 [facility]10-22-2024 History of Present illness Narrative* Sp San RN - 05/14/2024 2:17 PM EDT Transition Care Management (TCM) Initial Outreach PCP Update / Actionable Items Declined PCP TCM appointment from 05/13/24 discharge N/A - No specialty updates needed Patient Source: In-Network Discharge Initial outreach: TCM discharge report Outreach Summary: PCP TCM - declined Spoke with the patient States everything is going well since discharge No mention of any further new or worsening symptoms at this time. Offered further Discharge AVS review which includes Medication Schedule, Medications needs/concerns, Social Work, Behavioral Health Social Work, equipment, follow up instructions, politely declined. Please contact PCP team for questions, needs or concerns. Patient discharged from [facility] Discharge date: 05/13/24 Admitted for: Rectal bleeding Readmission Risk: 6 Value-Based Contract: ACO Contact: Contact made with patient: Yes Hi, my name is Sp San RN and I am calling from the [facility] on behalf of your Primary Care Provider, Mathew Cobian MD. I understand you were recently in the hospital, so I am calling to check in with you to ensure you are feeling well now that you are home. May I ask you a few questions related to your hospital stay and well-being? Yes Spoke to: Patient Validation: Validated the person spoken to is actively involved in the patient's care. The patient was identified by Name and Date of . Symptoms: Are you feeling about the same, better or worse since leaving the hospital? Better Medications: Do you have any questions about taking your medications, including which medications you should be on, or do you need refills on your medications? No Medication Review: Declined at this time per patient preference Discharge Instructions: Your Discharge Instructions / After Visit Summary (AVS) are important in guiding you through the recovery process. Do you have any questions related to your discharge instructions? No Home Care: Were you discharged with home care? No Equipment: Do you have all the necessary equipment and supplies needed at your home? Yes The patient verbalizes understanding the use of the equipment and supplies Social: We would like to make sure you have what you need so that your basics needs are met - including your personal safety, food, housing and medications. Would you like to speak with a social work steam turbine assembler to help give you support for any of these needs? No It can be normal to feel anxious or down during a time like this. Would you like to talk to a mental health professional about how you have been feeling? No Action Taken: No needs verbalized. No action required. Follow-Up Appointment: [Appointment / TCM Follow-up within 14 days] I would like to help you schedule a hospital follow-up virtual or telephone visit with your PCP. This is a great way for you to connect with your provider to ensure you have safely transitioned home.If you are agreeable, I will send your request to a shape brick molder who will contact and assist you with that appointment. This will give you an opportunity to ask any questions or address any concerns youmay have with your PCP. Inform the patient that if they have any questions or concerns prior to that appointment, to call their PCP's office right away. Appointment Action: No action required, patient declines appointment. Education N/A Targets addressed / completed during outreach: Contact patient within two (2) business days Outreach Outcome: Declines all TCM outreach Care Management partners utilized: N/A Sp San RN May 14, 2024 2:25 PM documented in this encounterFostoria City Hospital10-22-2024 NotePatient Outreach ([facility]) GOOD DE LUNA ([id number]) 1965 M Date Time Provider Department 05/14/24 SP SAN [facility] During your visit today, we recorded the following information about you: Sp San RN 05/14/2024 2:26 PM Signed Transition Care Management (TCM) Initial Outreach PCP Update / Actionable Items Declined PCP TCM appointment from 05/13/24 discharge N/A - No specialty updates needed Patient Source: In-Network Discharge Initial outreach: TCM discharge report Outreach Summary: PCP TCM - declined Spoke with the patient States everything is going well since discharge No mention of any further new or worsening symptoms at this time. Offered further Discharge AVS review which includes Medication Schedule, Medications needs/concerns, Social Work, Behavioral Health Social Work, equipment, follow up instructions, politely declined. Please contact PCP team for questions, needs or concerns. Patient discharged from [facility] Discharge date: 05/13/24 Admitted for: Rectal bleeding Readmission Risk: 6 Value-Based Contract: ACO Contact: Contact made with patient: Yes Hi, my name is Sp R Bann, RN and I am calling from the [facility] on behalf of your Primary Care Provider, Mathew Cobian MD. I understand you were recently in the hospital, so I am calling to check in with you to ensure you are feeling well now that you are home. May I ask you a few questions related to your hospital stay and well-being? Yes Spoke to: Patient Validation: Validated the person spoken to is actively involved in the patient's care. The patient was identified by Name and Date of . Symptoms: Are you feeling about the same, better or worse since leaving the hospital? Better Medications: Do you have any questions about taking your medications, including which medications you should be on, or do you need refills on your medications? No Medication Review: Declined at this time per patient preference Discharge Instructions: Your Discharge Instructions / After Visit Summary (AVS) are important in guiding you through the recovery process. Do you have any questions related to your discharge instructions? No Home Care: Were you discharged with home care? No Equipment: Do you have all the necessary equipment and supplies needed at your home? Yes The patient verbalizes understanding the use of the equipment and supplies Social: We would like to make sure you have what you need so that your basics needs are met - including your personal safety, food, housing and medications. Would you like to speak with a social work steam turbine assembler to help give you support for any of these needs? No It can be normal to feel anxious or down during a time like this. Would you like to talk to a mental health professional about how you have been feeling? No Action Taken: No needs verbalized. No action required. Follow-Up Appointment: [Appointment / TCM Follow-up within 14 days] I would like to help you schedule a hospital follow-up virtual or telephone visit with your PCP. This is a great way for you to connect with your provider to ensure you have safely transitioned home. If you are agreeable, I will send your request to a shape brick molder who will contact and assist you with that appointment. This will give you an opportunity to ask any questions or address any concerns you may have with your PCP. Inform the patient that if they have any questions or concerns prior to that appointment, to call their PCP's office right away. Appointment Action: No action required, patient declines appointment. Education N/A Targets addressed / completed during outreach: Contact patient within two (2) business days Outreach Outcome: Declines all TCM outreach Care Management partners utilized: N/A Sp San RN May 14, 2024 2:25 PM Allergies As of Date: 05/14/2024 (No Known Allergies) Date Reviewed: 05/13/2024 Reviewed by: Christina Parkinson RN - Fully Assessed Reason for Visit: Transition Of Care [4074] Cmt: TCM Initial Hospital Discharge [place] 05/13/24 Prescriptions as of 05/14/2024 - levothyroxine (SYNTHROID) 150 mcg tablet Take 1 tablet by mouth once daily. - omeprazole (PRILOSEC) 20 mg capsule take 1 capsule by mouth once daily - cholecalciferol, vitamin D3, (VITAMIN D3 ORAL) Take 2,000 mcg by mouth once daily. - citalopram (CELEXA) 40 mg tablet Take 1 tablet by mouth once daily. - CPAP Initiate CPAP @ 7 cm of water with humidification. Mask (per patient preference) optional chin strap (if indicated) , filters, tubing, humidifier and lifetime supplies. - multivit-min/folic/vit K/lycop (MEN'S 50 PLUS MULTIVITAMIN ORAL) Take 1 tablet by mouth once daily. - vitamin b complex capsule Take 1 capsule by mouth once daily. Problem List As Of Date 04/24 (more content not included)...[facility]10-21-2024 Nurse Note* Patricia Bai, RN - 05/13/2024 10:49 AM EDT Other: 1020- made aware of Pt's HR. Orders received. 1040- Dr. Hutton iupdated on patient's HR. 1045- Pt c/o chest heaviness. Dr. Hutton at bedside. No new orders. Per Dr. Hutton patient ok to send to the floor. [facility]10-21-2024 Nurse Note* Patricia Bai, RN - 05/13/2024 10:49 AM EDT Other: 1020- made aware of Pt's HR. Orders received. 1040- Dr. Hutton iupdated on patient's HR. 1045- Pt c/o chest heaviness. Dr. Hutton at bedside. No new orders. Per Dr. Hutton patient ok to send to the floor. [facility] Attending History and physical note* Gilson Bar DO - 05/13/2024 8:15 AM EDT UPDATED PROCEDURAL SEDATION HISTORY AND PHYSICAL EXAMINATION SERVICE DATE: 05/13/2024 SERVICE TIME: 8:11 AM PHYSICAL EXAM MUST BE COMPLETED ON ADMISSION PROCEDURE: Diagnostic colonoscopy Procedure Indications: Rectal bleeding The History and Physical (completed in the past 30 days) has been reviewed and the patient has beenexamined. The contents accurately reflect the patient's condition with the following additions or revisions since the H&P was completed. ASA Class: ASA Class: Patient with severe systemic disease Examination indicates no changes. AIRWAY: Airway Visualization of Uvula: Yes Mouth opening greater than 2 fingerbreadths: Yes Neck Full Range of Motion: Yes LUNGS: Lungs clear to auscultation CARDIAC: Regular rhythm,Regular rate Provisional Diagnosis/Treatment Plan: Diagnostic colonoscopy for rectal bleeding Sedation Goal: Anesthesia (MAC) This H&P can be found in the attached. SIGNATURE: Gilson Bar DO PATIENT NAME: Good De Luna DATE: May 13, 2024 TIME: 8:11 AM Source Note - Gilson Bar DO - 05/08/2024 1:00 PM EDT Images from the original note were not included. General Surgery Consult REASON FOR VISIT Good De Luna is a 58 year old male who is scheduled for a consult at the request of Brian Ahmadi for diverticulitis. My final recommendations will be communicated back to the requesting physician by the way of the shared medical record, fax, or via US Mail History of Present Illness: Good De Luna is a 58 year old male with contributing past medical and surgical history significant for cerebral palsy, congenital diplegia, spasticity, hx of prostate cancer, sleep apnea, and diverticulitis. The patient presents with rectal bleeding. Bleeding is intermittent and self-resolving. O ccurs with bowel movements. Blood is on the toilet paper, rarely with stool. No melena. CT Ab/P 06/08/2021 showed diverticulosis without evidence of diverticulitis. No prior colonoscopy. PAST MEDICAL HISTORY Diagnosis Date Acid reflux Anxiety state, unspecified Arthritis Cancer (HCC) Cerebral palsy (HCC) Congenital diplegia (HCC) Diverticulitis GERD (gastroesophageal reflux disease) JODEE on CPAP Sleep apnea 09/22/2008 Spinal stenosis Unspecified hypothyroidism PAST SURGICAL HISTORY Procedure Laterality Date PAST SURGICAL HISTORY OF trigger finger procedure as a child TONSILLECTOMY HX TONSILLECTOMY PRIMARY/SECONDARY Tonsillectomy FAMILY HISTORY Adopted: Yes Problem Relation Age of Onset Diabetes Mother Thyroid Maternal Grandmother Social History Tobacco Use Smoking status: Former Current packs/day: 0.00 Average packs/day: 1 pack/day for 30.0 years (30.0 ttl pk-yrs) Types: Cigarettes Start date: 07/29/1993 Quit date: 07/29/2023 Years since quittin.7 Smokeless tobacco: Never Tobacco comments: Pt has cut back to 1/4 pack daily. Vaps off and on Vaping Use Vaping status: Some Days Substance Use Topics Alcohol use: Yes Comment: 3/4 beers per week Drug use: No The patient has the following: Problem List Noted Noted By Resolved Resolved By Diverticulitis 04/30/2024 Brian Ahmadi, PHYSICIAN UNDERWRITER.REBRANDER No Recurrent major depressive disorder, remission status unspecified ([facility]) 10/17/2023 Mathew Cobian MD No Prostate cancer (HCC) 10/17/2023 Mathew Cobian MD No Congenital diplegia (HCC) 05/27/2021 Haylie Cornelius, PT, DPT No Spasticity 05/27/2021 Haylie Cornelius, PT, DPT No Costochondritis 05/27/2021 Haylie Cornelius, PT, DPT No Localized osteoporosis ([place]) 05/27/2021 Haylie Cornelius, PT, DPT No Cerebral palsy (HCC) Mathew Cobian MD No Nicotine use disorder, F17.2 02/11/2019 Zabrina Cevallos, No Back pain 02/10/2019 Zabrina Cevallos, DO No Chronic bilateral low back pain with right-sided sciatica 01/10/2018 Ray Giraldo PA-C No Spinal stenosis of lumbar region 12/12/2017 Brian Ahmadi APRN.REBRANDER No Overview Signed 12/12/2017 7:47 AM by Brian Ahmadi (Cotton Machine Operator) MRI 11/2017 [facility] Thoracic or lumbosacral neuritis or radiculitis, unspecified 04/25/2014 Chuyita Boyer, PT No Bilateral hip pain 04/17/2009 O Xiomy Hampton (Pt)(Hist) No SI (sacroiliac) joint dysfunction 04/17/2009 O Xiomy Hampton (Pt)(Hist) No Hypothyroidism 03/27/2009 Mathew Cobian MD No Anxiety state 03/27/2009 Mathew Cobian MD No Sleep apnea 09/22/2008 Mathew Cobian MD No MEDICATIONS No current facility-administered medications for this visit. No current outpatient medications on file. Facility-Administered Medications Ordered in Other Visits Medication Dose Route Frequency Provider Last Rate Last Admin [START ON 05/13/2024] pantoprazole DR 20 mg tab(s) (PROTONIX) 20 mg ORAL DAILY Angelika Gonzalez MD [START ON 05/13/2024] citalopram 40 mg tab(s) (CeleXA) 40 mg ORAL DAILY Angelika Gonzalez MD [START ON 05/13/2024] levothyroxine 150 mcg (SYNTHROID) 150 mcg ORAL DAILY Angelika Gonzalez MD cholecalciferol 1,000 Units tab(s) (VITAMIN D3) 1,000 Units ORAL DAILY Angelika Gonzalez MD multivitamin-ferrous fumarate-folic acid 1 tablet (CENTRUM) 1 tablet ORAL DAILY Angelika Gonzalez MD CURRENT ALLERGIES ALLERGIES No Known Allergies REVIEW OF SYSTEMS PAIN ASSESSMENT: Pain Pain Level: 4 Description: Aching Duration Units: Days Frequency: Continuous GENERAL: No weight loss, malaise or fevers. RESPIRATORY: Negative for cough, hemoptysis, wheezing, dyspnea or shortness of breath. CARDIOVASCULAR: Negative for chest pain, leg swelling, or palpitations. GI: Intermittent rectal bleeding. Denies nausea, vomiting, diarrhea, or constipation. PHYSICAL EXAMINATION BP 101/64 Pulse 63 Wt 224 lb (101.6kg) SpO2 95% General Appearance: Well appearing, alert, no acute distress Lungs: Lungs clear to auscultation. No wheezing, rhonchi, rales Heart: RRR without murmur, gallop, or rubs. No ectopy Abdomen: Abdomen soft, non-tender. Bowel sounds normal. No masses, organomegaly Anorectal: Declines rectal exam in office, requested exam at time of colonoscopy The sensitive examination was discussed with the Patient or Patient's Authorized Oil Mixer. Asapplicable, any other physician, advance practice provider, medical student, or other health professional student that will be observing or involved in the sensitive examination for educational or training purposes was discussed with the Patient or Authorized Oil Mixer. The Patient or Authorized Oil Mixer has agreed to proceed with the sensitive examination. (Sensitive examination includes inspection and/or palpation of the breasts, pelvis, prostate and anorectal regions) Diagnostic tests reviewed for today's visit: No prior colonoscopy. Reviewed most recent labs and imaging. Assessment ASSESSMENT Diverticulitis Bloody stools Blood in stool (primary encounter diagnosis) RECOMMENDATION -Schedule for diagnostic colonoscopy. We discussed the prep for colonoscopy. He expressed concerns and inability to complete prep due to mobility issues related to his cerebral palsy at home. We discussed having the patient admitted to the hospital prior to colonoscopy to complete prep prior to scope. Gilson aBr DO DATE: May 07, 2024 TIME: 5:51 PM CC: Mathew Cobian MD CC: Brian Ahmadi [facility] Work Phone: [phone]) 870-275110-21-2024 History and physical note* Gilson Bar DO - 05/13/2024 8:15 AM EDT UPDATED PROCEDURAL SEDATION HISTORY AND PHYSICAL EXAMINATION SERVICE DATE: 05/13/2024 SERVICE TIME: 8:11 AM PHYSICAL EXAM MUST BE COMPLETED ON ADMISSION PROCEDURE: Diagnostic colonoscopy Procedure Indications: Rectal bleeding The History and Physical (completed in the past 30 days) has been reviewed and the patient has beenexamined. The contents accurately reflect the patient's condition with the following additions or revisions since the H&P was completed. ASA Class: ASA Class: Patient with severe systemic disease Examination indicates no changes. AIRWAY: Airway Visualization of Uvula: Yes Mouth opening greater than 2 fingerbreadths: Yes Neck Full Range of Motion: Yes LUNGS: Lungs clear to auscultation CARDIAC: Regular rhythm,Regular rate Provisional Diagnosis/Treatment Plan: Diagnostic colonoscopy for rectal bleeding Sedation Goal: Anesthesia (MAC) This H&P can be found in the attached. SIGNATURE: Gilson Bar DO PATIENT NAME: Good De Luna DATE: May 13, 2024 TIME: 8:11 AM Source Note - Gilson Bar DO - 05/08/2024 1:00 PM EDT Images from the original note were not included. General Surgery Consult REASON FOR VISIT Good De Luna is a 58 year old male who is scheduled for a consult at the request of Brian Ahmadi for diverticulitis. My final recommendations will be communicated back to the requesting physician by the way of the shared medical record, fax, or via US Mail History of Present Illness: Good De Luna is a 58 year old male with contributing past medical and surgical history significant for cerebral palsy, congenital diplegia, spasticity, hx of prostate cancer, sleep apnea, and diverticulitis. The patient presents with rectal bleeding. Bleeding is intermittent and self-resolving. O ccurs with bowel movements. Blood is on the toilet paper, rarely with stool. No melena. CT Ab/P 06/08/2021 showed diverticulosis without evidence of diverticulitis. No prior colonoscopy. PAST MEDICAL HISTORY Diagnosis Date Acid reflux Anxiety state, unspecified Arthritis Cancer (HCC) Cerebral palsy (HCC) Congenital diplegia (HCC) Diverticulitis GERD (gastroesophageal reflux disease) JODEE on CPAP Sleep apnea 09/22/2008 Spinal stenosis Unspecified hypothyroidism PAST SURGICAL HISTORY Procedure Laterality Date PAST SURGICAL HISTORY OF trigger finger procedure as a child TONSILLECTOMY HX TONSILLECTOMY PRIMARY/SECONDARY <AGE 14 Tonsillectomy FAMILY HISTORY Adopted: Yes Problem Relation Age of Onset Diabetes Mother Thyroid Maternal Grandmother Social History Tobacco Use Smoking status: Former Current packs/day: 0.00 Average packs/day: 1 pack/day for 30.0 years (30.0 ttl pk-yrs) Types: Cigarettes Start date: 07/29/1993 Quit date: 07/29/2023 Years since quittin.7 Smokeless tobacco: Never Tobacco comments: Pt has cut back to 1/4 pack daily. Vaps off and on Vaping Use Vaping status: Some Days Substance Use Topics Alcohol use: Yes Comment: 3/4 beers per week Drug use: No The patient has the following: Problem List Noted Noted By Resolved Resolved By Diverticulitis 04/30/2024 Brian Ahmadi APRN.REBRANDER No Recurrent major depressive disorder, remission status unspecified ([facility]) 10/17/2023 Mathew Cobian MD No Prostate cancer ([facility]) 10/17/2023 Mathew Cobian MD No Congenital diplegia (HCC) 05/27/2021 BeHaylie dubois, PT, DPT No Spasticity 05/27/2021 Haylie Cornelius, PT, DPT No Costochondritis 05/27/2021 Haylie Cornelius, PT, DPT No Localized osteoporosis ([place]) 05/27/2021 Haylie Cornelius, PT, DPT No Cerebral palsy ([facility]) Mathew Cobian MD No Nicotine use disorder, F17.2 02/11/2019 Zabrina Cevallos DO No Back pain 02/10/2019 Zabrina Cevallos, DO No Chronic bilateral low back pain with right-sided sciatica 01/10/2018 Ray Giraldo PA-C No Spinal stenosis of lumbar region 12/12/2017 Brian Ahmadi, KALEB.REBRANDER No Overview Signed 12/12/2017 7:47 AM by Brian Ahmadi (Cotton Machine Operator) MRI 11/2017 [facility] Thoracic or lumbosacral neuritis or radiculitis, unspecified 04/25/2014 Chuyita Boyer, PT No Bilateral hip pain 04/17/2009 O Xiomy Hampton (Pt)(Hist) No SI (sacroiliac) joint dysfunction 04/17/2009 O Xiomy Hampton (Pt)(Hist) No Hypothyroidism 03/27/2009 Mathew Cobian MD No Anxiety state 03/27/2009 Mathew Cobian MD No Sleep apnea 09/22/2008 Mathew Cobian MD No MEDICATIONS No current facility-administered medications for this visit. No current outpatient medications on file. Facility-Administered Medications Ordered in Other Visits Medication Dose Route Frequency Provider Last Rate Last Admin [START ON 05/13/2024] pantoprazole DR 20 mg tab(s) (PROTONIX) 20 mg ORAL DAILY Angelika Gonzalez MD [START ON 05/13/2024] citalopram 40 mg tab(s) (CeleXA) 40 mg ORAL DAILY Angelika Gonzalez MD [START ON 05/13/2024] levothyroxine 150 mcg (SYNTHROID) 150 mcg ORAL DAILY Angelika Gonzalez MD cholecalciferol 1,000 Units tab(s) (VITAMIN D3) 1,000 Units ORAL DAILY Angelika Gonzalez MD multivitamin-ferrous fumarate-folic acid 1 tablet (CENTRUM) 1 tablet ORAL DAILY Angelika Gonzalez MD CURRENT ALLERGIES ALLERGIES No Known Allergies REVIEW OF SYSTEMS PAIN ASSESSMENT: Pain Pain Level: 4 Description: Aching Duration Units: Days Frequency: Continuous GENERAL: No weight loss, malaise or fevers. RESPIRATORY: Negative for cough, hemoptysis, wheezing, dyspnea or shortness of breath. CARDIOVASCULAR: Negative for chest pain, leg swelling, or palpitations. GI: Intermittent rectal bleeding. Denies nausea, vomiting, diarrhea, or constipation. PHYSICAL EXAMINATION BP 101/64 Pulse 63 Wt 224 lb (101.6kg) SpO2 95% General Appearance: Well appearing, alert, no acute distress Lungs: Lungs clear to auscultation. No wheezing, rhonchi, rales Heart: RRR without murmur, gallop, or rubs. No ectopy Abdomen: Abdomen soft, non-tender. Bowel sounds normal. No masses, organomegaly Anorectal: Declines rectal exam in office, requested exam at time of colonoscopy The sensitive examination was discussed with the Patient or Patient's Authorized Oil Mixer. Asapplicable, any other physician, advance practice provider, medical student, or other health professional student that will be observing or involved in the sensitive examination for educational or training purposes was discussed with the Patient or Authorized Oil Mixer. The Patient or Authorized Oil Mixer has agreed to proceed with the sensitive examination. (Sensitive examination includes inspection and/or palpation of the breasts, pelvis, prostate and anorectal regions) Diagnostic tests reviewed for today's visit: No prior colonoscopy. Reviewed most recent labs and imaging. Assessment ASSESSMENT Diverticulitis Bloody stools Blood in stool (primary encounter diagnosis) RECOMMENDATION -Schedule for diagnostic colonoscopy. We discussed the prep for colonoscopy. He expressed concerns and inability to complete prep due to mobility issues related to his cerebral palsy at home. We discussed having the patient admitted to the hospital prior to colonoscopy to complete prep prior to scope. Gilson Bar DO DATE: May 07, 2024 TIME: 5:51 PM CC: Mathew Cobian MD CC: Brian Ahmadi documented in [facility] NoteHNO ID: [id number] Author: ANGELIKA GONZALEZ MD Service: General Surgery Author Type: Physician Type: Progress Notes Filed: 05/12/2024 16:57 Note Text: Direct admit by Dr. Bar for rectal bleedingLake [facility] - [id number] Instructions* Patient Instructions* Gilson Bar DO - 05/08/2024 1:22 PM EDT COLONOSCOPY BOWEL PREPARATION INSTRUCTIONS GOLYTELY/NULYTELY/TRILYTE/COLYTE Your doctor has scheduled you for a colonoscopy. To have a successful colonoscopy, you must have a clean colon, that is empty. A clean colon allows your doctor to see the entire colon & diagnose issues like polyps or cancer. For doctors, a clean colon is like driving on a moraima day; a dirty colon like driving in a storm. It is very important that you follow these instructions exactly, or your colonoscopy might not be as effective, could be canceled, and you may need to do the bowel prep and the colonoscopy again. TRANSPORTATION REQUIREMENTS You are receiving IV sedation. For your safety, a responsible adult escort must accompany you to and from your procedure: Your adult escort MUST be present with you at check-in for your colonoscopy. Your adult escort MUST remain in the endoscopy area until you are discharged. Your adult escort MUST transport you home once you are discharged. You are NOT allowed to operate any form of transportation (i.e. drive a car, bicycle, etc.) or leave the Endoscopy Center ALONE. It is not safe to do so. If you cannot meet these requirements, your procedure will be canceled. MEDICATION REQUIREMENTS For your safety, certain medications will need to be stopped or adjusted before you can have your procedure: BLOOD THINNERS: If you take blood thinners, such as Coumadin (warfarin), Plavix (clopidogrel), Ticlid (ticlopidine hydrochloride), Agrylin (anagrelide), Xarelto (Rivaroxaban), Pradaxa (Dabigatran), Eliquis (Apixaban), or Effient (Prasugrel), contact the physician who is prescribing these medications at least 2 weeks prior to your procedure to discuss any necessary adjustments. DIABETES: If you take medications for diabetes, your dosage may need to be adjusted. If you are being treated for diabetes with insulin, diabetic pills, or other injectable medicationsdo not take your REGULAR dose after midnight on the day of your procedure. If you are taking any other types of insulin such as Lantus, Humalog, NPH (long- acting insulin), or70/30 insulin, take half your normal dose the day before your procedure. DIABETES/WEIGHT MANAGEMENT: If you take medications for weight-loss, your dosage may need to be adjusted Contact the doctor who prescribes this medication for further instructions. If you take medications for weight-loss like semaglutide (Ozempic, Wegovy, Rybelsus), dulaglutide (Trulicity), liraglutide (Victoza, Saxenda), exenatide (Byetta, Bydureon), or lixisenatide (Adylyxin), stop your medication 1 week prior to your procedure. If you take medications like canagliflozin (Invokana), dapagliflozin (Farxiga, Forxiga), empagliflozin (Jardiance), stop your medication 3 days prior to your procedure. If you take ertugliflozin (Steglatro) stop your medication 4 days prior to your procedure. IRON: If you take iron pills, STOP them 1 week BEFORE your procedure, may resume after. OTHER MEDS: May take all other medications (including aspirin, antibiotics, water pills / diureticslike Lasix or Metolozone, blood pressure meds, etc.) at their usual scheduled time with a sip of water. DIET REQUIREMENTS The day before your colonoscopy, you may have a clear liquid diet (see below). The day of your colonoscopy, you may continue a clear liquid diet until 3 hours before your colonoscopy. Within 3 hours of your colonoscopy, take only any medications (as above) with a sip of water. Clear Liquid Diet Broth (chicken, beef or vegetable broth or bullion. Just the broth, no solids). Water Coffee or Tea (NO milk or creamer), but sugar and sugar substitutes are allowed. Clear liquids including clear, yellow, green, blue (NO red, NO orange, NO purple) Sodas / soft drinks Gatorade or other sports drinks Nick-Aid or flavored drinks Plain Jell-O or other gelatins Fruit juice (strained; no-pulp) Popsicles or hard candy BOWEL PREPARATION (GOLYTELY/NULYTELY/TRILYTE/COLYTE) Split Dosing Bowel Prep: This means drinking your bowel prep in two doses. Split dosing helps cleanyour colon better and makes it less likely that your procedure will be canceled. Fill your prescription for Golytely/Nulytely/Trilyte/Colyte: The afternoon before your colonoscopy, mix the solution and refrigerate. You may add the flavor pack (if present) that came with the bowel preparation. Do not add ice, sugar, or other flavorings to the solution. You will drink your prep in two doses, by several hours. On the evening before your colonoscopy: 1. 6 PM drink the first half of the bowel preparation solution. Drink one 8-ounce glass every 15 minutes. 2. Six hours before your colonoscopy, drink the second half of the solution. Drink one 8-ounce glass every 15 minutes. 3. You may continue a clear liquid diet until 3 hours before your colonoscopy. Bowel prep can work differently from person to person. Some people's bowels move slowly and they may need different instructions. Please see your doctor in office or virtually for personalized bowel prep instructions if you have: Medical condition that needs special accommodations Had a poor bowel prep results or failed bowel prep attempts in the past. Had difficulty with anesthesia during the procedure. FREQUENTLY ASKED QUESTIONS Q: What if I suffer from constipation? A: Recommend taking extra laxatives to resolve your constipation days prior to entering the bowel prep day. Q: What if have had prior poor preps results in past? A: Contact your physician as you will likely need additional bowel prep instructions. Q: What if I have motility issues like Parkinson's, MS (multiple sclerosis), wheelchair dependent, etc.? or on medications that slow bowel emptying (narcotics, gabapentin, anticholinergic medicationsetc.) A: Contact your physician as you will likely need extra time and additional laxatives to complete your bowel prep. Q: What if I cannot drink large volume of liquid? A: Start your prep 2-3 hours earlier to allow yourself more time to complete the entire prep. Q: What if I can't finish my bowel prep? A: If you cannot finish your entire bowel prep, it is likely that your colonoscopy will need to be rescheduled due to poor prep quality. Q: What if I had bariatric surgery? Do I still have to complete the entire prep? A: Yes, gastric bypass surgery involves the stomach & small bowel. You may need to drink smaller amounts, slower (may need more time to complete your bowel prep). Gastric bypass does not alter the length of your colon so you will need to complete the entire bowel prep, it may just take longer time to complete it. Q: What if I am on dialysis? A: Please consult your spinner concrete pipe prior to scheduling to get instructions pertinent to you. In general, dialysis patients take the Golytely bowel prep and have the procedure same day of their dialysis (colonoscopy in AM, dialysis in PM). Q: How do I know if something is considered as clear liquid diet? A: If you can pour it in a glass and you can see through it, it is considered clear liquid Q: Can I eat nuts, seeds, beans, popcorn, dried fruits, vegetables & fruits that have skin peel? A: No, you will need to not eat these items starting 3 days prior to procedure. Q: Can I take Uber/Lyft/taxi/bus home? A: An adult MUST be present with you at check-in for your colonoscopy and remain in the endoscopy area until you are discharged. You can take Uber home only if this adult escort is with you at check in, remain in the endoscopy area until you are discharged, and takes the Uber with you to home. Q: Can I sleep it off here and drive myself home? A: No, you must have an adult with you at time of procedure check in, remain in the endoscopy center during your procedure, and drive you home. You cannot drive a vehicle after your procedure the rest of the day. documented in this [facility] History and physical note * Gilson Bar DO - 05/08/2024 1:00 PM EDT Images from the original note were not included. General Surgery Consult REASON FOR VISIT Good De Luna is a 58 year old male who is scheduled for a consult at the request of Brian Ahmadi for diverticulitis. My final recommendations will be communicated back to the requesting physician by the way of the shared medical record, fax, or via US Mail History of Present Illness: Good De Luna is a 58 year old male with contributing past medical and surgical history significant for cerebral palsy, congenital diplegia, spasticity, hx of prostate cancer, sleep apnea, and diverticulitis. The patient presents with rectal bleeding. Bleeding is intermittent and self-resolving. O ccurs with bowel movements. Blood is on the toilet paper, rarely with stool. No melena. CT Ab/P 06/08/2021 showed diverticulosis without evidence of diverticulitis. No prior colonoscopy. PAST MEDICAL HISTORY Diagnosis Date Acid reflux Anxiety state, unspecified Arthritis Cancer (HCC) Cerebral palsy (HCC) Congenital diplegia (HCC) Diverticulitis GERD (gastroesophageal reflux disease) JODEE on CPAP Sleep apnea 09/22/2008 Spinal stenosis Unspecified hypothyroidism PAST SURGICAL HISTORY Procedure Laterality Date PAST SURGICAL HISTORY OF trigger finger procedure as a child TONSILLECTOMY HX TONSILLECTOMY PRIMARY/SECONDARY Tonsillectomy FAMILY HISTORY Adopted: Yes Problem Relation Age of Onset Diabetes Mother Thyroid Maternal Grandmother Social History Tobacco Use Smoking status: Former Current packs/day: 0.00 Average packs/day: 1 pack/day for 30.0 years (30.0 ttl pk-yrs) Types: Cigarettes Start date: 07/29/1993 Quit date: 07/29/2023 Years since quittin.7 Smokeless tobacco: Never Tobacco comments: Pt has cut back to 1/4 pack daily. Vaps off and on Vaping Use Vaping status: Some Days Substance Use Topics Alcohol use: Yes Comment: 3/4 beers per week Drug use: No The patient has the following: Problem List Noted Noted By Resolved Resolved By Diverticulitis 04/30/2024 Brian Ahmadi APRN.REBRANDER No Recurrent major depressive disorder, remission status unspecified ([facility]) 10/17/2023 Mathew Cobian MD No Prostate cancer (HCC) 10/17/2023 Mathew Cobian MD No Congenital diplegia (HCC) 05/27/2021 Bebb Haylie, PT, DPT No Spasticity 05/27/2021 BebbHaylie, PT, DPT No Costochondritis 05/27/2021 BeHaylie dubois, PT, DPT No Localized osteoporosis ([place]) 05/27/2021 BeHaylie dubois, PT, DPT No Cerebral palsy (HCC) Mathew Cobian MD No Nicotine use disorder, F17.2 02/11/2019 Zabrina Cevallos, DO No Back pain 02/10/2019 Zabrina Cevallos, DO No Chronic bilateral low back pain with right-sided sciatica 01/10/2018 Ray Giraldo, KEILA No Spinal stenosis of lumbar region 12/12/2017 Brian Ahmadi APRN.REBRANDER No Overview Signed 12/12/2017 7:47 AM by Brian Ahmadi ([employer] Operator) MRI 11/2017 [facility] Thoracic or lumbosacral neuritis or radiculitis, unspecified 04/25/2014 Chuyita Boyer, PT No Bilateral hip pain 04/17/2009 O Memo, Xiomy (Pt)(Hist) No SI (sacroiliac) joint dysfunction 04/17/2009 O Memo, Xiomy (Pt)(Hist) No Hypothyroidism 03/27/2009 Mathew Cobian MD No Anxiety state 03/27/2009 Mathew Cobian MD No Sleep apnea 09/22/2008 Mathew Cobian MD No MEDICATIONS No current facility-administered medications for this visit. No current outpatient medications on file. Facility-Administered Medications Ordered in Other Visits Medication Dose Route Frequency Provider Last Rate Last Admin [START ON 05/13/2024] pantoprazole DR 20 mg tab(s) (PROTONIX) 20 mg ORAL DAILY Angelika Gonzalez MD [START ON 05/13/2024] citalopram 40 mg tab(s) (CeleXA) 40 mg ORAL DAILY Angelika Gonzalez MD [START ON 05/13/2024] levothyroxine 150 mcg (SYNTHROID) 150 mcg ORAL DAILY Angelika Gonzalez MD cholecalciferol 1,000 Units tab(s) (VITAMIN D3) 1,000 Units ORAL DAILY Angelika Gonzalez MD multivitamin-ferrous fumarate-folic acid 1 tablet (CENTRUM) 1 tablet ORAL DAILY Angelika Gonzalez MD CURRENT ALLERGIES ALLERGIES No Known Allergies REVIEW OF SYSTEMS PAIN ASSESSMENT: Pain Pain Level: 4 Description: Aching Duration Units: Days Frequency: Continuous GENERAL: No weight loss, malaise or fevers. RESPIRATORY: Negative for cough, hemoptysis, wheezing, dyspnea or shortness of breath. CARDIOVASCULAR: Negative for chest pain, leg swelling, or palpitations. GI: Intermittent rectal bleeding. Denies nausea, vomiting, diarrhea, or constipation. PHYSICAL EXAMINATION BP 101/64 Pulse 63 Wt 224 lb (101.6kg) SpO2 95% General Appearance: Well appearing, alert, no acute distress Lungs: Lungs clear to auscultation. No wheezing, rhonchi, rales Heart: RRR without murmur, gallop, or rubs. No ectopy Abdomen: Abdomen soft, non-tender. Bowel sounds normal. No masses, organomegaly Anorectal: Declines rectal exam in office, requested exam at time of colonoscopy The sensitive examination was discussed with the Patient or Patient's Authorized Oil Mixer. Asapplicable, any other physician, advance practice provider, medical student, or other health professional student that will be observing or involved in the sensitive examination for educational or training purposes was discussed with the Patient or Authorized Oil Mixer. The Patient or Authorized Oil Mixer has agreed to proceed with the sensitive examination. (Sensitive examination includes inspection and/or palpation of the breasts, pelvis, prostate and anorectal regions) Diagnostic tests reviewed for today's visit: No prior colonoscopy. Reviewed most recent labs and imaging. Assessment ASSESSMENT Diverticulitis Bloody stools Blood in stool (primary encounter diagnosis) RECOMMENDATION -Schedule for diagnostic colonoscopy. We discussed the prep for colonoscopy. He expressed concerns and inability to complete prep due to mobility issues related to his cerebral palsy at home. We discussed having the patient admitted to the hospital prior to colonoscopy to complete prep prior to scope. Gilson Bar DO DATE: May 07, 2024 TIME: 5:51 PM CC: Mathew Cobian MD CC: Brian Ahmadi [facility] History and physical note* Gilson Bar DO - 05/08/2024 1:00 PM EDT Images from the original note were not included. General Surgery Consult REASON FOR VISIT Good De Luna is a 58 year old male who is scheduled for a consult at the request of Brian Ahmadi for diverticulitis. My final recommendations will be communicated back to the requesting physician by the way of the shared medical record, fax, or via US Mail History of Present Illness: Good De Luna is a 58 year old male with contributing past medical and surgical history significant for cerebral palsy, congenital diplegia, spasticity, hx of prostate cancer, sleep apnea, and diverticulitis. The patient presents with rectal bleeding. Bleeding is intermittent and self-resolving. O ccurs with bowel movements. Blood is on the toilet paper, rarely with stool. No melena. CT Ab/P 06/08/2021 showed diverticulosis without evidence of diverticulitis. No prior colonoscopy. PAST MEDICAL HISTORY Diagnosis Date Acid reflux Anxiety state, unspecified Arthritis Cancer (HCC) Cerebral palsy (HCC) Congenital diplegia (HCC) Diverticulitis GERD (gastroesophageal reflux disease) JODEE on CPAP Sleep apnea 09/22/2008 Spinal stenosis Unspecified hypothyroidism PAST SURGICAL HISTORY Procedure Laterality Date PAST SURGICAL HISTORY OF trigger finger procedure as a child TONSILLECTOMY HX TONSILLECTOMY PRIMARY/SECONDARY <AGE 14 Tonsillectomy FAMILY HISTORY Adopted: Yes Problem Relation Age of Onset Diabetes Mother Thyroid Maternal Grandmother Social History Tobacco Use Smoking status: Former Current packs/day: 0.00 Average packs/day: 1 pack/day for 30.0 years (30.0 ttl pk-yrs) Types: Cigarettes Start date: 07/29/1993 Quit date: 07/29/2023 Years since quittin.7 Smokeless tobacco: Never Tobacco comments: Pt has cut back to 1/4 pack daily. Vaps off and on Vaping Use Vaping status: Some Days Substance Use Topics Alcohol use: Yes Comment: 3/4 beers per week Drug use: No The patient has the following: Problem List Noted Noted By Resolved Resolved By Diverticulitis 04/30/2024 Brian Ahmadi APRN.REBRANDER No Recurrent major depressive disorder, remission status unspecified ([facility]) 10/17/2023 Mathew Cobian MD No Prostate cancer ([facility]) 10/17/2023 Mathew Cobian MD No Congenital diplegia (HCC) 05/27/2021 BebbHaylie, PT, DPT No Spasticity 05/27/2021 BeHaylie dubois, PT, DPT No Costochondritis 05/27/2021 BeHaylie dubois, PT, DPT No Localized osteoporosis ([place]) 05/27/2021 Haylie Cornelius, PT, DPT No Cerebral palsy ([facility]) Mathew Cobian MD No Nicotine use disorder, F17.2 02/11/2019 Zabrina Cevallos, DO No Back pain 02/10/2019 Zabrina Cevallos, DO No Chronic bilateral low back pain with right-sided sciatica 01/10/2018 Ray Giraldo, KEILA No Spinal stenosis of lumbar region 12/12/2017 Brian Ahmadi APRN.REBRANDER No Overview Signed 12/12/2017 7:47 AM by Brian Ahmadi (Cotton Machine Operator) MRI 11/2017 [facility] Thoracic or lumbosacral neuritis or radiculitis, unspecified 04/25/2014 Chuyita Boyer, PT No Bilateral hip pain 04/17/2009 O Memo, Xiomy (Pt)(Hist) No SI (sacroiliac) joint dysfunction 04/17/2009 O Memo, Xiomy (Pt)(Hist) No Hypothyroidism 03/27/2009 Mathew Cobian MD No Anxiety state 03/27/2009 Mathew Cobian MD No Sleep apnea 09/22/2008 Mathew Cobian MD No MEDICATIONS No current facility-administered medications for this visit. No current outpatient medications on file. Facility-Administered Medications Ordered in Other Visits Medication Dose Route Frequency Provider Last Rate Last Admin [START ON 05/13/2024] pantoprazole DR 20 mg tab(s) (PROTONIX) 20 mg ORAL DAILY Angelika Gonzalez MD [START ON 05/13/2024] citalopram 40 mg tab(s) (CeleXA) 40 mg ORAL DAILY Angelika Gonzalez MD [START ON 05/13/2024] levothyroxine 150 mcg (SYNTHROID) 150 mcg ORAL DAILY Angelika Gonzalez MD cholecalciferol 1,000 Units tab(s) (VITAMIN D3) 1,000 Units ORAL DAILY Angelika Gonzalez MD multivitamin-ferrous fumarate-folic acid 1 tablet (CENTRUM) 1 tablet ORAL DAILY Angelika Gonzalez MD CURRENT ALLERGIES ALLERGIES No Known Allergies REVIEW OF SYSTEMS PAIN ASSESSMENT: Pain Pain Level: 4 Description: Aching Duration Units: Days Frequency: Continuous GENERAL: No weight loss, malaise or fevers. RESPIRATORY: Negative for cough, hemoptysis, wheezing, dyspnea or shortness of breath. CARDIOVASCULAR: Negative for chest pain, leg swelling, or palpitations. GI: Intermittent rectal bleeding. Denies nausea, vomiting, diarrhea, or constipation. PHYSICAL EXAMINATION BP 101/64 Pulse 63 Wt 224 lb (101.6kg) SpO2 95% General Appearance: Well appearing, alert, no acute distress Lungs: Lungs clear to auscultation. No wheezing, rhonchi, rales Heart: RRR without murmur, gallop, or rubs. No ectopy Abdomen: Abdomen soft, non-tender. Bowel sounds normal. No masses, organomegaly Anorectal: Declines rectal exam in office, requested exam at time of colonoscopy The sensitive examination was discussed with the Patient or Patient's Authorized Oil Mixer. Asapplicable, any other physician, advance practice provider, medical student, or other health professional student that will be observing or involved in the sensitive examination for educational or training purposes was discussed with the Patient or Authorized Oil Mixer. The Patient or Authorized Oil Mixer has agreed to proceed with the sensitive examination. (Sensitive examination includes inspection and/or palpation of the breasts, pelvis, prostate and anorectal regions) Diagnostic tests reviewed for today's visit: No prior colonoscopy. Reviewed most recent labs and imaging. Assessment ASSESSMENT Diverticulitis Bloody stools Blood in stool (primary encounter diagnosis) RECOMMENDATION -Schedule for diagnostic colonoscopy. We discussed the prep for colonoscopy. He expressed concerns and inability to complete prep due to mobility issues related to his cerebral palsy at home. We discussed having the patient admitted to the hospital prior to colonoscopy to complete prep prior to scope. Gilson Bar DO DATE: May 07, 2024 TIME: 5:51 PM CC: Mathew Cobian MD CC: Brian Ahmadi documented in this encounterFostoria City [facility]10-16-[facility] Nurse Note* Arlene Baker MA - 05/08/2024 12:58 PM EDT REVIEW OF SYSTEMS: General: The patient denies fatigue, denies weight loss, denies weight gain, denies feeling hot, and denies feelings of cold. Eyes: The patient denies glaucoma, denies eye injury/surgery, wears glasses or contacts. Ear/Nose/Throat: The patient NOTES allergies, denies hayfever, denies ear infections, and denies bloody noses. Cardiovascular: The patient denies chest pain, denies heart disease, denies high blood pressure,denies cardiac stent, denies prior heart attack, denies irregular heart beat, denies high cholesterol, denies poor circulation, denies heart failure, other cardiac issues, denies claudication, NOTES coldfeet, denies peripheral arterial stent. Respiratory: The patient denies tuberculosis, denies pneumonia, denies frequent cough, denies pulmonary embolism, denies shortness of breath, and denies coughing up blood. Gastrointestinal: The patient denies difficulty swallowing, NOTES acid reflux, denies ulcers, denies vomiting, denies jaundice/hepatitis, denies gallbladder problems, denies black or tarry stools, denies hemorrhoids, denies bleeding from rectum, NOTES diverticulitis, denies constipation, denies diarrhea, denies loss of stool control, and denies hernias. Kidney/Bladder: The patient denies kidney stones, denies urine infections, and denies bloody urine. Skin: The patient denies a history of skin cancer, denies bleeding/changing moles, and denies a history of skin rash. Neurologic: The patient denies a history of epilepsy/convulsions, denies headaches, denies head/spinal injuries, and denies stroke/TIA. Psychiatric: The patient denies psychiatric medications, NOTES depression, and denies voices, denies substance abuse. Endocrine: The patient NOTES thyroid disorders, denies diabetes, and denies hormonal problems. Hematologic: The patient denies a history of bruising, denies bleeding, and denies anemia, denies blood clots. Infections: The patient denies a history of measles and mumps, denies rheumatic fever, and denies sexually transmitted diseases. Musculoskeletal: The patient denies back pain/injury, denies back problems, denies sciatica, deniesknee/foot trouble, NOTES arthritis, or denies gout. When was patient's last Mammogram screening? N/A Last Colonoscopy: NONE Arlene Baker MA [facility]10-[facility] Nurse Note* Arlene Baker MA - 05/08/2024 12:58 PM EDT REVIEW OF SYSTEMS: General: The patient denies fatigue, denies weight loss, denies weight gain, denies feeling hot, and denies feelings of cold. Eyes: The patient denies glaucoma, denies eye injury/surgery, wears glasses or contacts. Ear/Nose/Throat: The patient NOTES allergies, denies hayfever, denies ear infections, and denies bloody noses. Cardiovascular: The patient denies chest pain, denies heart disease, denies high blood pressure,denies cardiac stent, denies prior heart attack, denies irregular heart beat, denies high cholesterol, denies poor circulation, denies heart failure, other cardiac issues, denies claudication, NOTES coldfeet, denies peripheral arterial stent. Respiratory: The patient denies tuberculosis, denies pneumonia, denies frequent cough, denies pulmonary embolism, denies shortness of breath, and denies coughing up blood. Gastrointestinal: The patient denies difficulty swallowing, NOTES acid reflux, denies ulcers, denies vomiting, denies jaundice/hepatitis, denies gallbladder problems, denies black or tarry stools, denies hemorrhoids, denies bleeding from rectum, NOTES diverticulitis, denies constipation, denies diarrhea, denies loss of stool control, and denies hernias. Kidney/Bladder: The patient denies kidney stones, denies urine infections, and denies bloody urine. Skin: The patient denies a history of skin cancer, denies bleeding/changing moles, and denies a history of skin rash. Neurologic: The patient denies a history of epilepsy/convulsions, denies headaches, denies head/spinal injuries, and denies stroke/TIA. Psychiatric: The patient denies psychiatric medications, NOTES depression, and denies voices, denies substance abuse. Endocrine: The patient NOTES thyroid disorders, denies diabetes, and denies hormonal problems. Hematologic: The patient denies a history of bruising, denies bleeding, and denies anemia, denies blood clots. Infections: The patient denies a history of measles and mumps, denies rheumatic fever, and denies sexually transmitted diseases. Musculoskeletal: The patient denies back pain/injury, denies back problems, denies sciatica, deniesknee/foot trouble, NOTES arthritis, or denies gout. When was patient's last Mammogram screening? N/A Last Colonoscopy: NONE Arlene Baker MA documented in this encounterFostoria City Hospital10-11-[facility] History of Present illness Narrative* Brian Ahmadi APRN.REBRANDER - 05/03/2024 10:40 AM EDT Chief Complaint Patient presents with: Follow Up HPI Good De Luna is a 58 year old male who presents here today for Above Complaints. Here with daughter. Patient is here for close follow-up from a recent bout of diverticulitis. Patient was in our office3 days ago after being on Augmentin for 4 days. At the time of her last appointment, left lower quadrant discomfort was still ongoing. He was having bloody bowel movements almost every day to every other day. I did prescribe him Omnicef and Flagyl as I felt he was not responding to the Augmentin. He has not started the Omnicef and Flagyl and actually finished the Augmentin. He actually feels better today. He is without fever. Left lower quadrant pain is resolved. He is eating a cookie at the time of our appointment in the office. He has been following a better diet which includes rice, chicken, green vegetables. He states that his last bowel movement was more formed, still had some blood init but not in the bowl. He does have a appointment with general surgery on May 08 to be evaluated for the need for colonoscopy. Past medical history, appointments, medications, allergies reviewed. EXAM: BP 120/80 Pulse 79 Temp 36.5 C (97.7 F) Resp 20 Wt 100.7 kg (222 lb) SpO2 98% BMI 36.94kg/m General Appearance: Well appearing, alert, in no acute distress, well-hydrated, well nourished.. Lungs: Lungs clear to auscultation. No wheezing, rhonchi, rales.. Heart: RRR without murmur, gallop, or rubs. No ectopy. Abdomen: Normal abdominal exam, Abdomen soft, non-tender. Bowel sounds normal. No masses, organomegaly. ASSESSMENT/PLAN: 1. Diverticulitis - ICD9: 562.11, ICD10: K57.92 (primary diagnosis) -Resolving. Finishing Augmentin today. Continue with plan to see general surgery next week for further evaluation. 2. Bloody stools - ICD9: 578.1, ICD10: K92.1 -Slowing down with resolution of diverticulitis. Continue to see general surgery. Brian Ahmadi APRN.CNP RTO if symptoms return. This note was partly generated using [employer] voice recognition dictation and may contain some misspelled or inaccurate words missed on review. documented in this encounterFostoria City Hospital10-11-2024 NoteHNO ID: [id number] Author: BRIAN AHMADI APRN.CNP Service: ? Author Type: Nurse Practitioner Type: Progress Notes Filed: 05/03/2024 10:46 Note Text: Chief Complaint Patient presents with: Follow Up HPI Good De Luna is a 58 year old male who presents here today for Above Complaints. Here with daughter. Patient is here for close follow-up from a recent bout of diverticulitis. Patient was in our office 3 days ago after being on Augmentin for 4 days. At the time of her last appointment, left lower quadrant discomfort was still ongoing. He was having bloody bowel movements almost every day to every other day. I did prescribe him Omnicef and Flagyl as I felt he was not responding to the Augmentin. He has not started the Omnicef and Flagyl and actually finished the Augmentin. He actually feels better today. He is without fever. Left lower quadrant pain is resolved. He is eating a cookie at the time of our appointment in the office. He has been following a better diet which includes rice, chicken, green vegetables. He states that his last bowel movement was more formed, still had some blood in it but not in the bowl. He does have a appointment with general surgery on May 08 to be evaluated for the need for colonoscopy. Past medical history, appointments, medications, allergies reviewed. EXAM: BP 120/80 Pulse 79 Temp 36.5 ?C (97.7 ?F) Resp 20 Wt 100.7 kg (222 lb) SpO2 98% BMI 36.94 kg/m? General Appearance: Well appearing, alert, in no acute distress, well-hydrated, well nourished.. Lungs: Lungs clear to auscultation. No wheezing, rhonchi, rales.. Heart: RRR without murmur, gallop, or rubs. No ectopy. Abdomen: Normal abdominal exam, Abdomen soft, non-tender. Bowel sounds normal. No masses, organomegaly. ASSESSMENT/PLAN: 1. Diverticulitis - ICD9: 562.11, ICD10: K57.92 (primary diagnosis) -Resolving. Finishing Augmentin today. Continue with plan to see general surgery next week for further evaluation. 2. Bloody stools - ICD9: 578.1, ICD10: K92.1 -Slowing down with resolution of diverticulitis. Continue to see general surgery. Brian Ahmadi APRN.REBRANDER RTO if symptoms return. This note was partly generated using [employer] voice recognition dictation and may contain some misspelled or inaccurate words missed on review.[facility]10-10-2024 Telephone encounter Note* Telephone Encounter - Michael Feliciano MA - 05/02/2024 7:30 AM EDT PSA pended. Michael Feliciano MA [facility]-10-[facility] Miscellaneous Notes* Telephone Encounter - Michael Feliciano MA - 05/02/2024 7:30 AM EDT PSA pended. Michael Feliciano MA documented in this encounterFostoria City Hospital10-08-2024 History of Present illness Narrative* Brian Ahmadi APRN.REBRANDER - 04/30/2024 1:20 PM EDT Chief Complaint Patient presents with: ER F/U: [facility] ER diverticulitis 04/23/2024 HPI Good De Luna is a 58 year old male who presents here today for Hospital Discharge Follow up. follow up for diverticulitis. Patient presenting for emergency room follow-up. Patient went to [facility] on April 23 for complaints of rectal bleeding. WBC 10,000. ECG normal. CT of the abdomen pelvis showed findings consistent with diverticulitis. Was treated with 7 days of Augmentin twice daily. Tomorrow is h is last day of the regimen. Patient states that pain is no different. Rating 4 out of 10. Patient continues to have bloody bowel movements. He states that he did not have 1 today or yesterday. On Monday he had 1 bowel movement which was bloody. He was originally referred to Dr. Wood at [facility] but has not made an appointment. We will get him to general surgery to have an evaluation for endoscopic. He denies any fevers. Past medical history, appointments, medications, allergies reviewed. EXAM: BP 114/76 Pulse 64 Temp 36.5 C (97.7 F) Resp 16 Wt 103 kg (227 lb) SpO2 98% BMI 37.77 kg/m General Appearance: Well appearing, alert, in no acute distress, well-hydrated, well nourished.. Lungs: Lungs clear to auscultation. No wheezing, rhonchi, rales.. Heart: RRR without murmur, gallop, or rubs. No ectopy. Abdomen: Abdomen soft but moderately tender in the left lower, left mid quadrant. Bowel sounds are normoactive. ASSESSMENT/PLAN: 1. Diverticulitis - ICD9: 562.11, ICD10: K57.92 (primary diagnosis) -Diagnosed in [facility]. Last day of Augmentin. Not responding to treatment. Continues to have left sided abdominal pain. Continues to have 1 bloody bowel movement every other day. Switch treatment to Omnicef and Flagyl. See general surgery. I would like to see him back in 3 days to evaluate treatment. If he is not improving then we will have to send him to the hospital. I discussed a bland diet or a clear liquid diet for bowel rest. I discussed if he were to get fevers, chills, worsening left-sided dental pain, multiple bloody stools a day, or nausea, he would need to go to the emergency room immediately. He verbalized understanding. - CEFDINIR 300 MG CAPSULE - METRONIDAZOLE 500 MG TABLET - CONSULT TO GENERAL SURGERY 2. Bloody stools - ICD9: 578.1, ICD10: K92.1 - Will be scoped. Treat diverticulitis above - CONSULT TO GENERAL SURGERY 3. Encounter for immunization - ICD9: V03.89, ICD10: Z23 - PFIZER-BIONTECH COVID-19 VACCINE AGE 12+ YR ([place]NATY) Brain Ahmadi APRN.CNP RTO in 3 days I spent a total of 31 minutes on the date of the service which included preparing to see the patient, [id number] patient care, completing clinical documentation, obtaining and/or reviewing separately obtained history, performing a medically appropriate examination, counseling and educating the pat ient/family/caregiver, and ordering medications, tests, or procedures. This note was partly generated using [employer] voice recognition dictation and may contain some misspelled or inaccurate words missed on review. documented in this encounterFostoria City Hospital10-08-2024 NoteHNO ID: [id number] Author: BRIAN AHMADI APRN.CNP Service: ? Author Type: Nurse Practitioner Type: Progress Notes Filed: 04/30/2024 14:12 Note Text: Chief Complaint Patient presents with: ER F/U: [facility] ER diverticulitis 04/23/2024 HPI Good De Luna is a 58 year old male who presents here today for Hospital Discharge Follow up. follow up for diverticulitis. Patient presenting for emergency room follow-up. Patient went to [facility] on April 23 for complaints of rectal bleeding. WBC 10,000. ECG normal. CT of the abdomen pelvis showed findings consistent with diverticulitis. Was treated with 7 days of Augmentin twice daily. Tomorrow is his last day of the regimen. Patient states that pain is no different. Rating 4 out of 10. Patient continues to have bloody bowel movements. He states that he did not have 1 today or yesterday. On Monday he had 1 bowel movement which was bloody. He was originally referred to Dr. Wood at [facility] but has not made an appointment. We will get him to general surgery to have an evaluation for endoscopic. He denies any fevers. Past medical history, appointments, medications, allergies reviewed. EXAM: BP 114/76 Pulse 64 Temp 36.5 ?C (97.7 ?F) Resp 16 Wt 103 kg (227 lb) SpO2 98% BMI 37.77 kg/m? General Appearance: Well appearing, alert, in no acute distress, well-hydrated, well nourished.. Lungs: Lungs clear to auscultation. No wheezing, rhonchi, rales.. Heart: RRR without murmur, gallop, or rubs. No ectopy. Abdomen: Abdomen soft but moderately tender in the left lower, left mid quadrant. Bowel sounds are normoactive. ASSESSMENT/PLAN: 1. Diverticulitis - ICD9: 562.11, ICD10: K57.92 (primary diagnosis) -Diagnosed in [facility]. Last day of Augmentin. Not responding to treatment. Continues to have left sided abdominal pain. Continues to have 1 bloody bowel movement every other day. Switch treatment to Omnicef and Flagyl. See general surgery. I would like to see him back in 3 days to evaluate treatment. If he is not improving then we will have to send him to the hospital. I discussed a bland diet or a clear liquid diet for bowel rest. I discussed if he were to get fevers, chills, worsening left-sided dental pain, multiple bloody stools a day, or nausea, he would need to go to the emergency room immediately. He verbalized understanding. - CEFDINIR 300 MG CAPSULE - METRONIDAZOLE 500 MG TABLET - CONSULT TO GENERAL SURGERY 2. Bloody stools - ICD9: 578.1, ICD10: K92.1 - Will be scoped. Treat diverticulitis above - CONSULT TO GENERAL SURGERY 3. Encounter for immunization - ICD9: V03.89, ICD10: Z23 - PFIZER-BIONTECH COVID-19 VACCINE AGE 12+ YR ([place]Y) Brian Ahmadi APRN.REBRANDER RTO in 3 days I spent a total of 31 minutes on the date of the service which included preparing to see the patient, [id number] patient care, completing clinical documentation, obtaining and/or reviewing separately obtained history, performing a medically appropriate examination, counseling and educating the patient/family/caregiver, and ordering medications, tests, or procedures. This note was partly generated using [employer] voice recognition dictation and may contain some misspelled or inaccurate words missed on review.[facility]10-03-2024 Telephone encounter Note* Telephone Encounter - Mathew Cobian MD - 04/25/2024 8:31 AM EDT OK to refill as ordered Mathew Cobian MD [facility]10-03-2024 Miscellaneous Notes* Telephone Encounter - Mathew Cobian MD - 04/25/2024 8:31 AM EDT OK to refill as ordered Mathew Cobian MD * Telephone Encounter - Saniya Santoro LPN - 04/24/2024 2:37 PM EDT Patient calling has a message from Priya Ahmadi that he changed his Levothyroxine to 150 mcg and the pharmacy does not have new rx. Explained to patient dose was updated in computer. He is asking fornew rx to be sent to [facility] pharmacy please, he said the 175 mcg is to much for him. Pendi ng rx to file. Please advise The patient has been identified by name and date of : Yes Caregiver verified no other encounters exist for this prescription request: Yes Caregiver confirmed with patient/requestor that no other refills are due, in the near future, with this provider at this time: Yes The last office visit in the department: 04/17/2024 Does the patient have a future office visit with this provider/department: Yes 07/12/2024 Requested Prescriptions Pending Prescriptions Disp Refills levothyroxine (SYNTHROID) 150 mcg tablet 90 tablet 1 Sig: Take 1 tablet by mouth once daily. Saniya Santoro LPN April 24, 2024 2:40 PM documented in this encounterFostoria City Hospital10-02-2024 Telephone encounter Note * Telephone Encounter - Saniya Santoro LPN - 04/24/2024 2:37 PM EDT Patient calling has a message from Priya Ahmadi that he changed his Levothyroxine to 150 mcg and the pharmacy does not have new rx. Explained to patient dose was updated in computer. He is asking fornew rx to be sent to [facility] pharmacy please, he said the 175 mcg is to much for him. Pendi ng rx to file. Please advise The patient has been identified by name and date of : Yes Caregiver verified no other encounters exist for this prescription request: Yes Caregiver confirmed with patient/requestor that no other refills are due, in the near future, with this provider at this time: Yes The last office visit in the department: 04/17/2024 Does the patient have a future office visit with this provider/department: Yes 07/12/2024 Requested Prescriptions Pending Prescriptions Disp Refills levothyroxine (SYNTHROID) 150 mcg tablet 90 tablet 1 Sig: Take 1 tablet by mouth once daily. Saniya Santoro LPN April 24, 2024 2:40 PM [facility]-01-[facility] Telephone encounter Note* Telephone Encounter - Brian Ahmadi APRN.CNP - 04/23/2024 2:26 PM EDT Noted and agree. Brian Ahmadi APRN.CNP [facility]10-01-2024 Miscellaneous Notes* Telephone Encounter - Brian Ahmadi APRN.CNP - 04/23/2024 2:26 PM EDT Noted and agree. Brian Ahmadi APRN.CNP * Telephone Encounter - Ashlyn London RN - 04/23/2024 2:06 PM EDT Patient reports he passed, what seemed like a lot of bright red blood, on Monday, with BM, toiletwater was red, and passed bright red blood again today, with BM, toilet water was red. Reports had lower abdominal pain on Monday and today having LLQ pain. Protocol recommends ER now, and patient agreeable. Reason for Disposition [1] MODERATE rectal bleeding (small blood clots, passing blood without stool, or toilet water turnsred) AND [2] more than once a day Answer Assessment - Initial Assessment Questions 1. APPEARANCE of BLOOD: Bright red blood in stool on Sat, and in toilet- may have had clots. Today bright red blood with BM, in toilet water and on toilet paper. Reports he has prostate CA, with no treatment at this time. 2. AMOUNT: Started and stopped with a BM. Seemed like a lot of blood on Monday. 3. FREQUENCY: Twice now. 4. ONSET: Sat 5. DIARRHEA: No 6. CONSTIPATION:No 7. RECURRENT SYMPTOMS: No 8. BLOOD THINNERS: No blood thinners. 9. OTHER SYMPTOMS: Abdominal pain on Sat was lower middle of abdomen, today LLQ. No other symptoms.Has protate cancer- for a couple years- no treatment so far. 10. : No Protocols used: Rectal [id number] documented in this encounterFostoria City Hospital10-01-2024 Telephone encounter Note * Telephone Encounter - Ashlyn London RN - 04/23/2024 2:06 PM EDT Patient reports he passed, what seemed like a lot of bright red blood, on Monday, with BM, toiletwater was red, and passed bright red blood again today, with BM, toilet water was red. Reports had lower abdominal pain on Monday and today having LLQ pain. Protocol recommends ER now, and patient agreeable. Reason for Disposition [1] MODERATE rectal bleeding (small blood clots, passing blood without stool, or toilet water turnsred) AND [2] more than once a day Answer Assessment - Initial Assessment Questions 1. APPEARANCE of BLOOD: Bright red blood in stool on Sat, and in toilet- may have had clots. Today bright red blood with BM, in toilet water and on toilet paper. Reports he has prostate CA, with no treatment at this time. 2. AMOUNT: Started and stopped with a BM. Seemed like a lot of blood on Monday. 3. FREQUENCY: Twice now. 4. ONSET: Sat 5. DIARRHEA: No 6. CONSTIPATION:No 7. RECURRENT SYMPTOMS: No 8. BLOOD THINNERS: No blood thinners. 9. OTHER SYMPTOMS: Abdominal pain on Sat was lower middle of abdomen, today LLQ. No other symptoms.Has protate cancer- for a couple years- no treatment so far. 10. : No Protocols used: Rectal [id number] [facility]09-25-[facility] Instructions* Patient Instructions* Gypsy Syed APRN.CNP - 04/17/2024 9:50 AM EDT Continue to take all medication as prescribed. Get repeat labs in June Keep up coming appointment with Neurology May get ultrasound to evaluate neck mass Follow up with ENT Follow up as scheduled or sooner pending test results. documented in this encounterFostoria City Hospital09-25-2024 History of Present illness Narrative* Gypsy Syed APRN.REBRANDER - 04/17/2024 9:40 AM EDT This is a 58 year old male who presents today with: Patient presents with: Follow Up: Thyroid issus HISTORY OF PRESENT ILLNESS: Good De Luna is a 58 year old male. Patient presents with: Follow Up: Thyroid issus Here in the office for thyroid follow up. Synthroid reduced to 150 mcg daily, repeat labs due in June. Was concerned since he has never had any issues with his thyroid levels in the past. Refers he would take it with food in the past and never had abnormal labs. Will follow up with Dr. Cisse (neurology) April 24. To discuss memory. Bach screening showed possible cognitive impairment. Shoulder mass, has been present for at least a year. Tender at times. Is concerned because sister had a similar mass removed which could be cancer. PAST MEDICAL HISTORY: PAST MEDICAL HISTORY Diagnosis Date Anxiety state, unspecified Arthritis Cancer (HCC) Cerebral palsy (HCC) Congenital diplegia (HCC) GERD (gastroesophageal reflux disease) JODEE on CPAP Sleep apnea 09/22/2008 Spinal stenosis Unspecified hypothyroidism PAST SURGICAL HISTORY Procedure Laterality Date TONSILLECTOMY HX TONSILLECTOMY PRIMARY/SECONDARY <AGE 12 Tonsillectomy ALLERGIES Patient has no known allergies. MEDICATIONS Current Outpatient Medications Medication Sig levothyroxine (SYNTHROID) 150 mcg tablet Take 1 tablet by mouth once daily. omeprazole (PRILOSEC) 20 mg capsule take 1 capsule by mouth once daily fluticasone (FLONASE) 50 mcg/actuation nasal spray Use 2 Sprays in each nostril two times a day. Rinse mouth after use. meclizine (ANTIVERT) 25 mg tab Take 1 tablet by mouth three times a day as needed (dizziness) for up to 12 doses. cholecalciferol, vitamin D3, (VITAMIN D3 ORAL) Take 2,000 mcg by mouth once daily. citalopram (CELEXA) 40 mg tablet Take 1 tablet by mouth once daily. CPAP Initiate CPAP @ 7 cm of water with humidification. Mask (per patient preference) optional chinstrap (if indicated) , filters, tubing, humidifier and lifetime supplies. multivit-min/folic/vit K/lycop (MEN'S 50 PLUS MULTIVITAMIN ORAL) Take 1 tablet by mouth once daily. vitamin b complex capsule Take 1 capsule by mouth once daily. No current facility-administered medications for this visit. FAMILY HISTORY Adopted: Yes Problem Relation Age of Onset Diabetes Mother Thyroid Maternal Grandmother Social History Tobacco Use Smoking status: Former Current packs/day: 0.00 Average packs/day: 1 pack/day for 30.0 years (30.0 ttl pk-yrs) Types: Cigarettes Start date: 07/29/1993 Quit date: 07/29/2023 Years since quittin.7 Smokeless tobacco: Never Tobacco comments: Pt has cut back to 1/4 pack daily. Vaps off and on Vaping Use Vaping status: Never Used Substance Use Topics Alcohol use: Yes Comment: 3/4 beers daily sometimes Drug use: No REVIEW OF SYSTEMS GENERAL: No weight loss, malaise or fevers/chills HEENT: Negative for frequent or significant headaches, No changes in hearing or vision. NECK: Negative for lumps, goiter, pain and significant neck swelling RESPIRATORY: Negative for cough, hemoptysis, wheezing, dyspnea or shortness of breath CARDIOVASCULAR: Negative for chest pain, leg swelling, orthopnea, or palpitations GI: No nausea, vomiting, or diarrhea/constipation. No hematochezia/melena. No heartburn or reflux symptoms. : No history of dysuria, frequency or incontinence MUSCULOSKELETAL: Negative for joint pain or swelling. SKIN: + Neck Mass ENDOCRINE: Negative for cold or heat intolerance, polyuria, polydipsia and goiter NEURO: No history of headaches, syncope, paralysis, seizures or tremors MOOD: Negative for depression, anxiety, or suicidal ideation. EXAM: BP 122/80 Pulse 68 Resp 16 Wt 104.6 kg (230 lb 9.6 oz) SpO2 97% BMI 38.37 kg/m PHYSICAL EXAM: General Appearance: Well appearing, alert, in no acute distress, well-hydrated, well nourished. Skin: Large lump noted on posterior cervical spine, non-tender, no color change, may be a fat pad. Head: Normocephalic, no masses, lesions, tenderness or abnormalities. Eyes: Anicteric sclera. Extraocular movements are intact. Lungs: Lungs clear to auscultation. No wheezing, rhonchi, rales. Heart: RRR without murmur, gallop, or rubs. No ectopy. Extremities: No deformities, edema, skin discoloration, clubbing or cyanosis. Good capillary refill. Peripheral Pulses: Normal, Capillary refill <2secs, strong peripheral pulses, Pulses palpable. Neurologic: Gait normal. Sensation grossly intact. ASSESSMENT/PLAN: 1. Hypothyroidism, unspecified type - ICD9: 244.9, ICD10: E03.9 (primary diagnosis) - Instructed patient on importance of taking on an empty stomach either first thing in the morning or at bedtime. - Continue with Synthroid 150 mcg daily. - Get repeat labs in June. 2. Memory loss - ICD9: 780.93, ICD10: R41.3 - Keep upcoming appointment with neurology. 3. Neck mass - ICD9: 784.2, ICD10: R22.1 - Mass may be a fat pad, however will get ultrasound for further evaluation. - US HEAD/NECK SOFT TISSUE OTHER Follow-up as scheduled or sooner pending test results. Discussed treatment plan and patient voices understanding. Patient's questions answered appropriately. Medications and potential side effects were discussed and patient voices understanding. Gypsy Syed APRN.PATTIE This note was partially generated using [employer] voice recognition system. Note was reviewed for accuracy. There may be minor misspellings or grammar miscues with [employer] voice recognition. documented in this encounterFostoria City Hospital09-25-2024 NoteHNO ID: [id number] Author: GYPSY SYED APRN.PATTIE Service: ? Author Type: Nurse Practitioner Type: Progress Notes Filed: 04/17/2024 11:30 Note Text: This is a 58 year old male who presents today with: Patient presents with: Follow Up: Thyroid issus HISTORY OF PRESENT ILLNESS: Good De Luna is a 58 year old male. Patient presents with: Follow Up: Thyroid issus Here in the office for thyroid follow up. Synthroid reduced to 150 mcg daily, repeat labs due in June. Was concerned since he has never had any issues with his thyroid levels in the past. Refers he would take it with food in the past and never had abnormal labs. Will follow up with Dr. Cisse (neurology) April 24. To discuss memory. Bach screening showed possible cognitive impairment. Shoulder mass, has been present for at least a year. Tender at times. Is concerned because sister had a similar mass removed which could be cancer. PAST MEDICAL HISTORY: PAST MEDICAL HISTORY Diagnosis Date Anxiety state, unspecified Arthritis Cancer (HCC) Cerebral palsy (HCC) Congenital diplegia (HCC) GERD (gastroesophageal reflux disease) JODEE on CPAP Sleep apnea 09/22/2008 Spinal stenosis Unspecified hypothyroidism PAST SURGICAL HISTORY Procedure Laterality Date TONSILLECTOMY HX TONSILLECTOMY PRIMARY/SECONDARY Tonsillectomy ALLERGIES Patient has no known allergies. MEDICATIONS Current Outpatient Medications Medication Sig levothyroxine (SYNTHROID) 150 mcg tablet Take 1 tablet by mouth once daily. omeprazole (PRILOSEC) 20 mg capsule take 1 capsule by mouth once daily fluticasone (FLONASE) 50 mcg/actuation nasal spray Use 2 Sprays in each nostril two times a day. Rinse mouth after use. meclizine (ANTIVERT) 25 mg tab Take 1 tablet by mouth three times a day as needed (dizziness) for up to 12 doses. cholecalciferol, vitamin D3, (VITAMIN D3 ORAL) Take 2,000 mcg by mouth once daily. citalopram (CELEXA) 40 mg tablet Take 1 tablet by mouth once daily. CPAP Initiate CPAP @ 7 cm of water with humidification. Mask (per patient preference) optional chin strap (if indicated) , filters, tubing, humidifier and lifetime supplies. multivit-min/folic/vit K/lycop (MEN'S 50 PLUS MULTIVITAMIN ORAL) Take 1 tablet by mouth once daily. vitamin b complex capsule Take 1 capsule by mouth once daily. No current facility-administered medications for this visit. FAMILY HISTORY Adopted: Yes Problem Relation Age of Onset Diabetes Mother Thyroid Maternal Grandmother Social History Tobacco Use Smoking status: Former Current packs/day: 0.00 Average packs/day: 1 pack/day for 30.0 years (30.0 ttl pk-yrs) Types: Cigarettes Start date: 07/29/1993 Quit date: 07/29/2023 Years since quittin.7 Smokeless tobacco: Never Tobacco comments: Pt has cut back to 1/4 pack daily. Vaps off and on Vaping Use Vaping status: Never Used Substance Use Topics Alcohol use: Yes Comment: 3/4 beers daily sometimes Drug use: No REVIEW OF SYSTEMS GENERAL: No weight loss, malaise or fevers/chills HEENT: Negative for frequent or significant headaches, No changes in hearing or vision. NECK: Negative for lumps, goiter, pain and significant neck swelling RESPIRATORY: Negative for cough, hemoptysis, wheezing, dyspnea or shortness of breath CARDIOVASCULAR: Negative for chest pain, leg swelling, orthopnea, or palpitations GI: No nausea, vomiting, or diarrhea/constipation. No hematochezia/melena. No heartburn or reflux symptoms. : No history of dysuria, frequency or incontinence MUSCULOSKELETAL: Negative for joint pain or swelling. SKIN: + Neck Mass ENDOCRINE: Negative for cold or heat intolerance, polyuria, polydipsia and goiter NEURO: No history of headaches, syncope, paralysis, seizures or tremors MOOD: Negative for depression, anxiety, or suicidal ideation. EXAM: BP 122/80 Pulse 68 Resp 16 Wt 104.6 kg (230 lb 9.6 oz) SpO2 97% BMI 38.37 kg/m? PHYSICAL EXAM: General Appearance: Well appearing, alert, in no acute distress, well-hydrated, well nourished. Skin: Large lump noted on posterior cervical spine, non-tender, no color change, may be a fat pad. Head: Normocephalic, no masses, lesions, tenderness or abnormalities. Eyes: Anicteric sclera. Extraocular movements are intact. Lungs: Lungs clear to auscultation. No wheezing, rhonchi, rales. Heart: RRR without murmur, gallop, or rubs. No ectopy. Extremities: No deformities, edema, skin discoloration, clubbing or cyanosis. Good capillary refill. Peripheral Pulses: Normal, Capillary refill <2secs, strong peripheral pulses, Pulses palpable. Neurologic: Gait normal. Sensation grossly intact. ASSESSMENT/PLAN: 1. Hypothyroidism, unspecified type - ICD9: 244.9, ICD10: E03.9 (primary diagnosis) - Instructed patient on importance of taking on an empty stomach either first thing in the morning or at bedtime. - Continue with Synthroid 150 (more content not included)...[facility]09-20-2024 History of Present illness Narrative* Brian Ahmadi, KALEB.REBRANDER - 04/12/2024 10:40 AM EDT Chief Complaint Patient presents with: Follow Up: 4 week HPI Good De Luna is a 58 year old male who presents here today for Chronic Medical Conditions. follow up for depression, anxiety. Here with daughter. Patient here for a follow-up. Last month had been complaining of ongoing generalized anxiety, low moods, anger. Using lorazepam as needed, estimates twice weekly, sometimes less, times more. Prescribed Celexa 40 mg once daily. I added Wellbutrin XL 150 mg once daily to his regimen. Today he states that he never picked up the medication. Feels like he does not need it. Patient was also following up on hypothyroidism. Last month his TSH was 10.4. After further discussion patient had been taking the medication with other medications and food. He has been doing this for many years. I gave him the option of increasing the dose or trialing taking the medication on an empty stomach with no other medications as he was supposed to. He stated that he wanted to start taking the medications properly. We do had no dose change. He had a TSH to today which has not been completed. He will do so after the visit. He continues to have some brain fog, memory issues. I did order the [place] score test last month but he has not completed. He will do so soon. He has follow-up with neurology in April with Dr. Cisse in [place]. He has been following with ear nose and throat at [place] for inner ear problems. He was given an antibiotic. He is scheduled for patch testing early next month. He also mentions that this has been ongoing since August. He moved to a new apartment in June which has black mold in it. Unsure ifhe is able to leave. Past medical history, appointments, medications, allergies reviewed. EXAM: BP 112/70 Pulse 61 Resp 16 Wt 103.9 kg (229 lb) SpO2 98% BMI 38.11 kg/m General Appearance: Well appearing, alert, in no acute distress, well-hydrated, well nourished.. ASSESSMENT/PLAN: 1. Recurrent major depressive disorder, remission status unspecified (HCC) - ICD9: 296.30, ICD10: F33.9 (primary diagnosis) -Continue Celexa, lorazepam. Patient did not wish to continue with Wellbutrin. 2. MANNY (generalized anxiety disorder) - ICD9: 300.02, ICD10: F41.1 -Continue Celexa, lorazepam. 3. Hypothyroidism, unspecified type - ICD9: 244.9, ICD10: E03.9 -Recheck TSH today. I will reach out to him as he has been taking the medication on empty stomach with no other medications for the past month. Brian Ahmadi APRN.CNP RTO in 3 months, sooner if needed. This note was partly generated using [employer] voice recognition dictation and may contain some misspelled or inaccurate words missed on review. documented in this encounterFostoria City [facility]09-20-2024 NoteHNO ID: [id number] Author: BRIAN AHMADI APRN.CNP Service: ? Author Type: Nurse Practitioner Type: Progress Notes Filed: 04/12/2024 10:58 Note Text: Chief Complaint Patient presents with: Follow Up: 4 week HPI Good De Luna is a 58 year old male who presents here today for Chronic Medical Conditions. follow up for depression, anxiety. Here with daughter. Patient here for a follow-up. Last month had been complaining of ongoing generalized anxiety, low moods, anger. Using lorazepam as needed, estimates twice weekly, sometimes less, times more. Prescribed Celexa 40 mg once daily. I added Wellbutrin XL 150 mg once daily to his regimen. Today he states that he never picked up the medication. Feels like he does not need it. Patient was also following up on hypothyroidism. Last month his TSH was 10.4. After further discussion patient had been taking the medication with other medications and food. He has been doing this for many years. I gave him the option of increasing the dose or trialing taking the medication on an empty stomach with no other medications as he was supposed to. He stated that he wanted to start taking the medications properly. We do had no dose change. He had a TSH to today which has not been completed. He will do so after the visit. He continues to have some brain fog, memory issues. I did order the Marj score test last month but he has not completed. He will do so soon. He has follow-up with neurology in April with Dr. Cisse in [place]. He has been following with ear nose and throat at [place] for inner ear problems. He was given an antibiotic. He is scheduled for patch testing early next month. He also mentions that this has been ongoing since August. He moved to a new apartment in June which has black mold in it. Unsure if he is able to leave. Past medical history, appointments, medications, allergies reviewed. EXAM: BP 112/70 Pulse 61 Resp 16 Wt 103.9 kg (229 lb) SpO2 98% BMI 38.11 kg/m? General Appearance: Well appearing, alert, in no acute distress, well-hydrated, well nourished.. ASSESSMENT/PLAN: 1. Recurrent major depressive disorder, remission status unspecified (HCC) - ICD9: 296.30, ICD10: F33.9 (primary diagnosis) -Continue Celexa, lorazepam. Patient did not wish to continue with Wellbutrin. 2. MANNY (generalized anxiety disorder) - ICD9: 300.02, ICD10: F41.1 -Continue Celexa, lorazepam. 3. Hypothyroidism, unspecified type - ICD9: 244.9, ICD10: E03.9 -Recheck TSH today. I will reach out to him as he has been taking the medication on empty stomach with no other medications for the past month. Brian Ahmadi APRN.REBRANDER RTO in 3 months, sooner if needed. This note was partly generated using [employer] voice recognition dictation and may contain some misspelled or inaccurate words missed on review.[facility]09-12-2024 Telephone encounter Note* Telephone Encounter - Ross Roldan LPN - 04/04/2024 3:25 PM EDT Patient notified of referral, verbalizes understanding of instructions. Ross Roldan LPN [facility]09-12-2024 Miscellaneous Notes* Telephone Encounter - Ross Roldan LPN - 04/04/2024 3:25 PM EDT Patient notified of referral, verbalizes understanding of instructions. Ross Roldan LPN * Telephone Encounter - Brian Ahmadi APRN.CNP - 04/04/2024 2:59 PM EDT Please let the patient know that I placed a referral to ENT. We usually have patients go to [place]. Brian Ahmadi APRN.PATTIE * Telephone Encounter - Angelika Geller LPN - 04/04/2024 2:06 PM EDT Pt calls requesting a referral for another ENT states is wanting a second opinion . Has been seeingsomeone here in [place]. Asking for someone maybe in [place]. Please advise. documented in this encounterFostoria City Hospital09-12-2024 Telephone encounter Note * Telephone Encounter - Brian Ahmadi APRN.CNP - 04/04/2024 2:59 PM EDT Please let the patient know that I placed a referral to ENT. We usually have patients go to [place]. Brian Ahmadi APRN.PATTIE [facility]09-12-[facility] Telephone encounter Note* Telephone Encounter - Angelika Geller LPN - 04/04/2024 2:06 PM EDT Pt calls requesting a referral for another ENT states is wanting a second opinion . Has been seeingsomeone here in [place]. Asking for someone maybe in [place]. Please advise. [facility]08-23-[facility] Telephone encounter Note* Telephone Encounter - Scarlet Pascual LPN - 03/15/2024 12:00 PM EDT Phoned patient and reviewed provider's message with him. He voiced understanding. Scarlet Pascual LPN [facility]08-23-2024 Miscellaneous Notes* Telephone Encounter - Scarlet Pascual LPN - 03/15/2024 12:00 PM EDT Phoned patient and reviewed provider's message with him. He voiced understanding. Scarlet Pascual LPN * Telephone Encounter - Brian Ahmadi APRN.CNP - 03/15/2024 11:22 AM EDT Patient saw urology 3 days ago. They placed a PSA to be completed in August. Brian Ahmadi APRN.CNP * Telephone Encounter - Scarlet Pascual LPN - 03/15/2024 10:57 AM EDT Following patient's appointment he was inquiring if he could get his PSA drawn to have it recheckedto ensure it's not getting higher. Advised patient would route provider a message since currently in with patient and get back with him once provider responds. Patient voiced understanding. Scarlet Pascual LPN documented in this encounterFostoria City Hospital08-23-2024 Telephone encounter Note * Telephone Encounter - Brian Ahmadi APRN.CNP - 03/15/2024 11:22 AM EDT Patient saw urology 3 days ago. They placed a PSA to be completed in August. Brian Ahmadi APRN.CNP [facility]08-23-2024 Telephone encounter Note* Telephone Encounter - Scarlet Pascual LPN - 03/15/2024 10:57 AM EDT Following patient's appointment he was inquiring if he could get his PSA drawn to have it recheckedto ensure it's not getting higher. Advised patient would route provider a message since currently in with patient and get back with him once provider responds. Patient voiced understanding. Scarlet Pascual LPN [facility]08-23-[facility] History of Present illness Narrative* Brian Ahmadi APRN.REBRANDER - 03/15/2024 10:20 AM EDT Chief Complaint Patient presents with: Follow Up: TSH HPI Good De Luna is a 58 year old male who presents here today for Chronic Medical Conditions. Here with daughter HYPOTHYROID: Patient is compliant with medications: Yes but admits to be taking the medication withall his other medications Patient has changes in energy: Yes Patient has changes in hair or skin: No Patient has temperature intolerance: Yes Patient has weight changes: No Recent TSH 10.4. Previously 3.07. Patient stating that he has ongoing generalized anxiety. Has been dealing with an ear issue in which she has been following with ear nose and throat. Feels like his anxiousness has been worse relatedto this. But also has complaints of occasional anger, low moods. Does not really feel like he is depressed for the most part. States that he occasionally has intrusive thoughts. Denies any suicidalideations. His intrusive thoughts mainly revolve around being angry. He also uses lorazepam as needed. Estimates twice weekly, sometimes more, sometimes less. He also discusses ongoing memory issues. He is scheduled to see neurology in April. Father had Alzheimer's. Past medical history, appointments, medications, allergies reviewed. EXAM: BP 124/68 Pulse 62 Resp 16 SpO2 95% General Appearance: Well appearing, alert, in no acute distress, well-hydrated, well nourished.. Neck: Supple, no adenopathy; thyroid symmetric, normal size, no bruits. Lungs: Lungs clear to auscultation. No wheezing, rhonchi, rales.. Heart: RRR without murmur, gallop, or rubs. No ectopy. Latest Ref Rng 03/12/2024 Protein, Total 6.3 - 8.0 g/dL 7.8 Albumin 3.9 - 4.9 g/dL 4.6 Calcium 8.5 - 10.2 mg/dL 9.6 Bilirubin, Total 0.2 - 1.3 mg/dL 0.6 Alkaline Phosphatase 38 - 113 U/L 107 AST 14 - 40 U/L 23 ALT 10 - 54 U/L 29 Glucose 74 - 99 mg/dL 89 BUN 9 - 24 mg/dL 21 Creatinine 0.73 - 1.22 mg/dL 1.26 (H) Sodium 136 - 144 mmol/L 137 Potassium 3.7 - 5.1 mmol/L 4.2 Chloride 98 - 107 mmol/L 99 CO2 22 - 30 mmol/L 25 Anion Gap 8 - 15 mmol/L 13 eGFR >=60 mL/min/1.73m 67 TSH 0.270 - 4.200 mIU/L 10.400 (H) ASSESSMENT/PLAN: 1. Hypothyroidism, unspecified type - ICD9: 244.9, ICD10: E03.9 (primary diagnosis) -TSH is elevated at 10.4. After further discussion with the patient, he states that he has been taking his levothyroxine with all other medications at the same time. We discussed that this could potentially be causing the levothyroxine to not be absorbed properly. I gave him the option of increasing the levothyroxine and continuing to take the medication as he has been doing so or continue with the same dose and starting to take his levothyroxine on an empty stomach with no other medication. Hestates that he would like to try taking his levothyroxine on empty stomach in the morning with no other medication and then continuing to take his other medication at night. We will repeat TSH in 1 month. - LEVOTHYROXINE 175 MCG TABLET - THYROID STIMULATING HORMONE 2. Recurrent major depressive disorder, remission status unspecified (HCC) - ICD9: 296.30, ICD10: F33.9 -Some ongoing low moods, episodes of irritability. Also some ongoing memory concerns. Trial adding Wellbutrin to Celexa. Follow-up in 1 month. - BUPROPION XL 150 MG TAB 3. MANNY (generalized anxiety disorder) - ICD9: 300.02, ICD10: F41.1 -Increased, continue Celexa, add Wellbutrin, continue with as needed lorazepam. - BUPROPION XL 150 MG TAB 4. Memory loss - ICD9: 780.93, ICD10: R41.3 -Continue with plan to see neurology. Complete box screening. Try to improve anxiety, depression, get TSH in more normal range and reassess. - BACH SCREENING TEST Brian Ahmadi APRN.PATTIE RTO in 1 months, sooner if needed. This note was partly generated using [employer] voice recognition dictation and may contain some misspelled or inaccurate words missed on review. documented in this encounterFostoria City Hospital08-23-2024 NoteHNO ID: [id number] Author: BRIAN AHMADI APRN.CNP Service: ? Author Type: Nurse Practitioner Type: Progress Notes Filed: 03/15/2024 11:25 Note Text: Chief Complaint Patient presents with: Follow Up: TSH HPI Good De Luna is a 58 year old male who presents here today for Chronic Medical Conditions. Here with daughter HYPOTHYROID: Patient is compliant with medications: Yes but admits to be taking the medication with all his other medications Patient has changes in energy: Yes Patient has changes in hair or skin: No Patient has temperature intolerance: Yes Patient has weight changes: No Recent TSH 10.4. Previously 3.07. Patient stating that he has ongoing generalized anxiety. Has been dealing with an ear issue in which she has been following with ear nose and throat. Feels like his anxiousness has been worse related to this. But also has complaints of occasional anger, low moods. Does not really feel like he is depressed for the most part. States that he occasionally has intrusive thoughts. Denies any suicidal ideations. His intrusive thoughts mainly revolve around being angry. He also uses lorazepam as needed. Estimates twice weekly, sometimes more, sometimes less. He also discusses ongoing memory issues. He is scheduled to see neurology in April. Father had Alzheimer's. Past medical history, appointments, medications, allergies reviewed. EXAM: BP 124/68 Pulse 62 Resp 16 SpO2 95% General Appearance: Well appearing, alert, in no acute distress, well-hydrated, well nourished.. Neck: Supple, no adenopathy; thyroid symmetric, normal size, no bruits. Lungs: Lungs clear to auscultation. No wheezing, rhonchi, rales.. Heart: RRR without murmur, gallop, or rubs. No ectopy. Latest Ref Rng 03/12/2024 Protein, Total 6.3 - 8.0 g/dL 7.8 Albumin 3.9 - 4.9 g/dL 4.6 Calcium 8.5 - 10.2 mg/dL 9.6 Bilirubin, Total 0.2 - 1.3 mg/dL 0.6 Alkaline Phosphatase 38 - 113 U/L 107 AST 14 - 40 U/L 23 ALT 10 - 54 U/L 29 Glucose 74 - 99 mg/dL 89 BUN 9 - 24 mg/dL 21 Creatinine 0.73 - 1.22 mg/dL 1.26 (H) Sodium 136 - 144 mmol/L 137 Potassium 3.7 - 5.1 mmol/L 4.2 Chloride 98 - 107 mmol/L 99 CO2 22 - 30 mmol/L 25 Anion Gap 8 - 15 mmol/L 13 eGFR >=60 mL/min/1.73m? 67 TSH 0.270 - 4.200 mIU/L 10.400 (H) ASSESSMENT/PLAN: 1. Hypothyroidism, unspecified type - ICD9: 244.9, ICD10: E03.9 (primary diagnosis) -TSH is elevated at 10.4. After further discussion with the patient, he states that he has been taking his levothyroxine with all other medications at the same time. We discussed that this could potentially be causing the levothyroxine to not be absorbed properly. I gave him the option of increasing the levothyroxine and continuing to take the medication as he has been doing so or continue with the same dose and starting to take his levothyroxine on an empty stomach with no other medication. He states that he would like to try taking his levothyroxine on empty stomach in the morning with no other medication and then continuing to take his other medication at night. We will repeat TSH in 1 month. - LEVOTHYROXINE 175 MCG TABLET - THYROID STIMULATING HORMONE 2. Recurrent major depressive disorder, remission status unspecified (HCC) - ICD9: 296.30, ICD10: F33.9 -Some ongoing low moods, episodes of irritability. Also some ongoing memory concerns. Trial adding Wellbutrin to Celexa. Follow-up in 1 month. - BUPROPION XL 150 MG TAB 3. MANNY (generalized anxiety disorder) - ICD9: 300.02, ICD10: F41.1 -Increased, continue Celexa, add Wellbutrin, continue with as needed lorazepam. - BUPROPION XL 150 MG TAB 4. Memory loss - ICD9: 780.93, ICD10: R41.3 -Continue with plan to see neurology. Complete box screening. Try to improve anxiety, depression, get TSH in more normal range and reassess. - BACH SCREENING TEST Brian Ahmadi APRN.REBRANDER RTO in 1 months, sooner if needed. This note was partly generated using [employer] voice recognition dictation and may contain some misspelled or inaccurate words missed on review.[facility]08-21-2024 Telephone encounter Note* Telephone Encounter - Ross Roldan LPN - 03/13/2024 9:19 AM EDT Pt has appt on 03/13 at 10:20 am. Ross Roldan LPN [facility]08-21-2024 Miscellaneous Notes* Telephone Encounter - Ross Roldan LPN - 03/13/2024 9:19 AM EDT Pt has appt on 03/13 at 10:20 am. Ross Roldan LPN * Telephone Encounter - Brian Ahmadi APRN.CNP - 03/13/2024 8:31 AM EDT Please assist with scheduling patient with myself for a follow up. His TSH is abnormal, we need to discuss changing his dose. I have openings on Monday for his convenience. Brian Ahmadi APRN.PATTIE documented in this encounterFostoria City Hospital08-21-2024 Telephone encounter Note * Telephone Encounter - Brian Ahmadi APRN.CNP - 03/13/2024 8:31 AM EDT Please assist with scheduling patient with myself for a follow up. His TSH is abnormal, we need to discuss changing his dose. I have openings on Monday for his convenience. Brian Ahmadi APRN.CNP [facility]08-20-2024 NoteHNO ID: [id number] Author: RAPHAEL CALDERON JR, MD Service: ? Author Type: Physician Type: Progress Notes Filed: 03/12/2024 12:24 Note Text: ESTABLISHED PATIENT OFFICE VISIT HPI Good De Luna is a 58 year old male who presents Previous note dr. Sibley [place] 6 Prostate Cancer. 09/04 cores found. Prostate MRI negative for lesions. Decipher not approved by insurance. Proceed to active surveillance. PSA in 6 months. Father and patient in agreement. 09/12/23 - Psa now 2.01, feels well overall. No change in luts. No fever. No uti. Doing ok with active surveillance 03/12/24 - just got psa done today. Not resulted yet. No fever. No uti. No change in luts. Doing well with active surveillance LAB: Creatinine Date Value Ref Range Status 12/14/2023 1.11 0.73 - 1.22 mg/dL Final PSA (ng/mL) Date Value 09/12/2023 2.01 12/14/2022 1.42 04/18/2022 1.45 06/14/2021 5.2 No results found for: UGLUC, UBILI, UKET, SPGR, UHB, UPH, UPROT, UROBIL, NITRITES, UWBC, UCOLAP MEDICATIONS: omeprazole (PRILOSEC) 20 mg capsule take 1 capsule by mouth once daily fluticasone (FLONASE) 50 mcg/actuation nasal spray Use 2 Sprays in each nostril two times a day. Rinse mouth after use. levothyroxine (SYNTHROID) 175 mcg tablet take 1 tablet by mouth every morning ON AN EMPTY STOMACH for THYROID meclizine (ANTIVERT) 25 mg tab Take 1 tablet by mouth three times a day as needed (dizziness) for up to 12 doses. cholecalciferol, vitamin D3, (VITAMIN D3 ORAL) Take 2,000 mcg by mouth once daily. citalopram (CELEXA) 40 mg tablet Take 1 tablet by mouth once daily. CPAP Initiate CPAP @ 7 cm of water with humidification. Mask (per patient preference) optional chin strap (if indicated) , filters, tubing, humidifier and lifetime supplies. multivit-min/folic/vit K/lycop (MEN'S 50 PLUS MULTIVITAMIN ORAL) Take 1 tablet by mouth once daily. vitamin b complex capsule Take 1 capsule by mouth once daily. iv contrast (will be provided with radiology test) MRI Prostate Inject, intravenously, once for 1 dose. No IV access, insert saline lock prior to the beginning of sedation, infusion, injection of imaging exam. Discontinue saline lock post exam. If Pt. has a central line or IVAD, may access for administration according to line specific nursing protocol. Once exam is complete flush line and de-access according to line specific nursing protocol in the MR contrast administration guidelines link. REVIEW OF SYSTEMS Review of Systems Constitutional: Negative. Respiratory: Negative. Cardiovascular: Negative. Gastrointestinal: Negative. Genitourinary: Negative. Skin: Negative. Neurological: Negative. Psychiatric/Behavioral: Negative. HISTORIES PAST MEDICAL HISTORY No date: Anxiety state, unspecified No date: Arthritis No date: Cancer (HCC) No date: Cerebral palsy (HCC) No date: Congenital diplegia (HCC) No date: GERD (gastroesophageal reflux disease) No date: JODEE on CPAP 09/22/2008: Sleep apnea No date: Spinal stenosis No date: Unspecified hypothyroidism FAMILY HISTORY Adopted: Yes Problem Relation Age of Onset Diabetes Mother Thyroid Maternal Grandmother SOCIAL HISTORY Social History Tobacco Use Smoking status: Former Current packs/day: 0.00 Average packs/day: 1 pack/day for 30.0 years (30.0 ttl pk-yrs) Types: Cigarettes Start date: 07/29/1993 Quit date: 07/29/2023 Years since quittin.6 Smokeless tobacco: Never Tobacco comments: Pt has cut back to 1/4 pack daily. Vaps off and on Vaping Use Vaping status: Never Used Substance Use Topics Alcohol use: Yes Comment: 3/4 beers daily sometimes Drug use: No PHYSICAL EXAMINATION General appearance: Well appearing, alert, in no acute distress, and well-hydrated, well nourished Skin: Skin color, texture, turgor normal, no suspicious rashes or lesions Respiratory:+ effort Cardiovascular: Not examined GI: Normal abdominal exam, Abdomen soft, non-tender. No masses, organomegaly Musculoskeletal: Negative Neuro: Negative Genitourinary: not examined Impression: (C61) Prostate cancer (HCC) Plan: 6 months Mri prostate and psa prior Cont active surveillance Raphael Calderon Jr, MD 03/12/2024[facility]08-20-2024 History of Present illness Narrative* Raphael Calderon Jr., MD - 03/12/2024 12:22 PM EDT ESTABLISHED PATIENT OFFICE VISIT HPI Good De Luna is a 58 year old male who presents Previous note dr. Sibley [place] 6 Prostate Cancer. 09/04 cores found. Prostate MRI negative for lesions. Decipher not approved by insurance. Proceed to active surveillance. PSA in 6 months. Father and patient in agreement. 09/12/23 - Psa now 2.01, feels well overall. No change in luts. No fever. No uti. Doing ok with active surveillance 03/12/24 - just got psa done today. Not resulted yet. No fever. No uti. No change in luts. Doing well with active surveillance LAB: Creatinine Date Value Ref Range Status 12/14/2023 1.11 0.73 - 1.22 mg/dL Final PSA (ng/mL) Date Value 09/12/2023 2.01 12/14/2022 1.42 04/18/2022 1.45 06/14/2021 5.2 No results found for: UGLUC, UBILI, UKET, SPGR, UHB, UPH, UPROT, UROBIL, NITRITES, UWBC, UCOLAP MEDICATIONS: omeprazole (PRILOSEC) 20 mg capsule take 1 capsule by mouth once daily fluticasone (FLONASE) 50 mcg/actuation nasal spray Use 2 Sprays in each nostril two times a day. Rinse mouth after use. levothyroxine (SYNTHROID) 175 mcg tablet take 1 tablet by mouth every morning ON AN EMPTY STOMACH for THYROID meclizine (ANTIVERT) 25 mg tab Take 1 tablet by mouth three times a day as needed (dizziness) for up to 12 doses. cholecalciferol, vitamin D3, (VITAMIN D3 ORAL) Take 2,000 mcg by mouth once daily. citalopram (CELEXA) 40 mg tablet Take 1 tablet by mouth once daily. CPAP Initiate CPAP @ 7 cm of water with humidification. Mask (per patient preference) optional chinstrap (if indicated) , filters, tubing, humidifier and lifetime supplies. multivit-min/folic/vit K/lycop (MEN'S 50 PLUS MULTIVITAMIN ORAL) Take 1 tablet by mouth once daily. vitamin b complex capsule Take 1 capsule by mouth once daily. iv contrast (will be provided with radiology test) MRI Prostate Inject, intravenously, once for 1 dose. No IV access, insert saline lock prior to the beginning of sedation, infusion, injection of imaging exam. Discontinue saline lock post exam. If Pt. has a central line or IVAD, may access for administration according to line specific nursing protocol. Once exam is complete flush line and de-access according to line specific nursing protocol in the MR contrast administration guidelines link. REVIEW OF SYSTEMS Review of Systems Constitutional: Negative. Respiratory: Negative. Cardiovascular: Negative. Gastrointestinal: Negative. Genitourinary: Negative. Skin: Negative. Neurological: Negative. Psychiatric/Behavioral: Negative. HISTORIES PAST MEDICAL HISTORY No date: Anxiety state, unspecified No date: Arthritis No date: Cancer (HCC) No date: Cerebral palsy (HCC) No date: Congenital diplegia (HCC) No date: GERD (gastroesophageal reflux disease) No date: JODEE on CPAP 09/22/2008: Sleep apnea No date: Spinal stenosis No date: Unspecified hypothyroidism FAMILY HISTORY Adopted: Yes Problem Relation Age of Onset Diabetes Mother Thyroid Maternal Grandmother SOCIAL HISTORY Social History Tobacco Use Smoking status: Former Current packs/day: 0.00 Average packs/day: 1 pack/day for 30.0 years (30.0 ttl pk-yrs) Types: Cigarettes Start date: 07/29/1993 Quit date: 07/29/2023 Years since quittin.6 Smokeless tobacco: Never Tobacco comments: Pt has cut back to 1/4 pack daily. Vaps off and on Vaping Use Vaping status: Never Used Substance Use Topics Alcohol use: Yes Comment: 3/4 beers daily sometimes Drug use: No PHYSICAL EXAMINATION General appearance: Well appearing, alert, in no acute distress, and well- hydrated, well nourished Skin: Skin color, texture, turgor normal, no suspicious rashes or lesions Respiratory:+ effort Cardiovascular: Not examined GI: Normal abdominal exam, Abdomen soft, non-tender. No masses, organomegaly Musculoskeletal: Negative Neuro: Negative Genitourinary: not examined Impression: (C61) Prostate cancer (HCC) Plan: 6 months Mri prostate and psa prior Cont active surveillance Raphael Calderon Jr, MD 03/12/2024 documented in this encounterFostoria City Hospital08-06-2024 Telephone encounter Note * Telephone Encounter - Renard Lo RN - 02/27/2024 10:22 AM EDT Pt called in and was reporting her was having ear issues that were causing dizziness, confusion, and anxiety. He was asking for an ENT consult. Let him know that Dr Cobian had put one on on 10/17/23 after his hospital f/u for dizziness. I let Pt know I would send his information to [place] [facility] for him. Pt also missed his neurology appointment in [place] in December, Pt put through to scheduling to set up. Faxed demographic sheet, orders, and 10/17/23 OV note to fax # [phone]. [facility]08-06-2024 Miscellaneous Notes* Telephone Encounter - Renard Lo RN - 02/27/2024 10:22 AM EDT Pt called in and was reporting her was having ear issues that were causing dizziness, confusion, and anxiety. He was asking for an ENT consult. Let him know that Dr Cobian had put one on on 10/17/23 after his hospital f/u for dizziness. I let Pt know I would send his information to [facility] for him. Pt also missed his neurology appointment in [place] in December, Pt put through to scheduling to set up. Faxed demographic sheet, orders, and 10/17/23 OV note to fax # [phone]. documented in this encounterFostoria City Hospital07-27-2024 NoteHNO ID: [id number] Author: ABBE ADAME APRN.REBRANDER Service: ? Author Type: Nurse Practitioner Type: Progress Notes Filed: 02/17/2024 11:58 Note Text: Subjective Came in with complaints of itching rash on the left lower ankle. Patient says that he noticed it this morning. Patient was outside yesterday but did not get into poison [place]. Patient denies any other symptoms other than itching. The history is provided by the patient. No language pathologist was used. Rash Review of Systems Constitutional: Negative. Skin: Positive for itching and rash. Objective Physical Exam Constitutional: Appearance: Normal appearance. Pulmonary: Effort: Pulmonary effort is normal. Musculoskeletal: Feet: Feet: Comments: Raised erythematous blanchable areas where noted above. Consistent with mosquito bites. Neurological: Mental Status: He is alert. PAST MEDICAL HISTORY Diagnosis Date Anxiety state, unspecified Arthritis Cancer (HCC) Cerebral palsy (HCC) Congenital diplegia (HCC) GERD (gastroesophageal reflux disease) JODEE on CPAP Sleep apnea 09/22/2008 Spinal stenosis Unspecified hypothyroidism PAST SURGICAL HISTORY Procedure Laterality Date TONSILLECTOMY HX TONSILLECTOMY PRIMARY/SECONDARY Tonsillectomy ALLERGIES Patient has no known allergies. MEDICATIONS omeprazole (PRILOSEC) 20 mg capsule take 1 capsule by mouth once daily fluticasone (FLONASE) 50 mcg/actuation nasal spray Use 2 Sprays in each nostril two times a day. Rinse mouth after use. levothyroxine (SYNTHROID) 175 mcg tablet take 1 tablet by mouth every morning ON AN EMPTY STOMACH for THYROID LORazepam (ATIVAN) 0.5 mg Take 1 tablet by mouth at bedtime as needed for up to 90 days. meclizine (ANTIVERT) 25 mg tab Take 1 tablet by mouth three times a day as needed (dizziness) for up to 12 doses. cholecalciferol, vitamin D3, (VITAMIN D3 ORAL) Take 2,000 mcg by mouth once daily. citalopram (CELEXA) 40 mg tablet Take 1 tablet by mouth once daily. CPAP Initiate CPAP @ 7 cm of water with humidification. Mask (per patient preference) optional chin strap (if indicated) , filters, tubing, humidifier and lifetime supplies. multivit-min/folic/vit K/lycop (MEN'S 50 PLUS MULTIVITAMIN ORAL) Take 1 tablet by mouth once daily. vitamin b complex capsule Take 1 capsule by mouth once daily. triamcinolone (KENALOG) 0.025 % cream Apply to affected area two times a day for 7 days. FAMILY HISTORY Adopted: Yes Problem Relation Age of Onset Diabetes Mother Thyroid Maternal Grandmother Social History Tobacco Use Smoking status: Former Packs/day: 1.00 Years: 30.00 Additional pack years: 0.00 Total pack years: 30.00 Types: Cigarettes Quit date: 07/29/2023 Years since quittin.5 Smokeless tobacco: Never Tobacco comments: Pt has cut back to 1/4 pack daily. Vaps off and on Vaping Use Vaping Use: Never used Substance Use Topics Alcohol use: Yes Comment: 3/4 beers daily sometimes Drug use: No ASSESSMENT/PLAN: 1. Rash - ICD9: 782.1, ICD10: R21 Patient was called in triamcinolone cream for the itching. Patient was educated about red flag symptoms to watch for such as swelling increased redness or pain. Patient will be reevaluated if anything changes. Patient was okay with this care plan. Abbe Adame APRN.[facility]07-27-2024 History of Present illness Narrative* Abbe Adame APRN.[facility] - 02/17/2024 11:57 AM EDT Images from the original note were not included. Subjective Came in with complaints of itching rash on the left lower ankle. Patient says that he noticed it this morning. Patient was outside yesterday but did not get into poison [place]. Patient denies any other symptoms other than itching. The history is provided by the patient. No language pathologist was used. Rash Review of Systems Constitutional: Negative. Skin: Positive for itching and rash. Objective Physical Exam Constitutional: Appearance: Normal appearance. Pulmonary: Effort: Pulmonary effort is normal. Musculoskeletal: Feet: Feet: Comments: Raised erythematous blanchable areas where noted above. Consistent with mosquito bites. Neurological: Mental Status: He is alert. PAST MEDICAL HISTORY Diagnosis Date Anxiety state, unspecified Arthritis Cancer (HCC) Cerebral palsy (HCC) Congenital diplegia (HCC) GERD (gastroesophageal reflux disease) JODEE on CPAP Sleep apnea 09/22/2008 Spinal stenosis Unspecified hypothyroidism PAST SURGICAL HISTORY Procedure Laterality Date TONSILLECTOMY HX TONSILLECTOMY PRIMARY/SECONDARY <AGE 14 Tonsillectomy ALLERGIES Patient has no known allergies. MEDICATIONS omeprazole (PRILOSEC) 20 mg capsule take 1 capsule by mouth once daily fluticasone (FLONASE) 50 mcg/actuation nasal spray Use 2 Sprays in each nostril two times a day. Rinse mouth after use. levothyroxine (SYNTHROID) 175 mcg tablet take 1 tablet by mouth every morning ON AN EMPTY STOMACH for THYROID LORazepam (ATIVAN) 0.5 mg Take 1 tablet by mouth at bedtime as needed for up to 90 days. meclizine (ANTIVERT) 25 mg tab Take 1 tablet by mouth three times a day as needed (dizziness) for up to 12 doses. cholecalciferol, vitamin D3, (VITAMIN D3 ORAL) Take 2,000 mcg by mouth once daily. citalopram (CELEXA) 40 mg tablet Take 1 tablet by mouth once daily. CPAP Initiate CPAP @ 7 cm of water with humidification. Mask (per patient preference) optional chinstrap (if indicated) , filters, tubing, humidifier and lifetime supplies. multivit-min/folic/vit K/lycop (MEN'S 50 PLUS MULTIVITAMIN ORAL) Take 1 tablet by mouth once daily. vitamin b complex capsule Take 1 capsule by mouth once daily. triamcinolone (KENALOG) 0.025 % cream Apply to affected area two times a day for 7 days. FAMILY HISTORY Adopted: Yes Problem Relation Age of Onset Diabetes Mother Thyroid Maternal Grandmother Social History Tobacco Use Smoking status: Former Packs/day: 1.00 Years: 30.00 Additional pack years: 0.00 Total pack years: 30.00 Types: Cigarettes Quit date: 07/29/2023 Years since quittin.5 Smokeless tobacco: Never Tobacco comments: Pt has cut back to 1/4 pack daily. Vaps off and on Vaping Use Vaping Use: Never used Substance Use Topics Alcohol use: Yes Comment: 3/4 beers daily sometimes Drug use: No ASSESSMENT/PLAN: 1. Rash - ICD9: 782.1, ICD10: R21 Patient was called in triamcinolone cream for the itching. Patient was educated about red flag symptoms to watch for such as swelling increased redness or pain. Patient will be reevaluated if anything changes. Patient was okay with this care plan. Abbe Adame APRN.CNP documented in this encounterFostoria City Hospital07-08-2024 Telephone encounter Note * Telephone Encounter - Brian Ahmadi APRN.CNP - 01/29/2024 2:32 PM EDT The following approved medication requests have been transmitted electronically. Requested Prescriptions Pending Prescriptions Disp Refills omeprazole (PRILOSEC) 20 mg capsule [Pharmacy Med Name: OMEPRAZOLE DR 20 MG CAPSULE] 90 capsule 3 Sig: take 1 capsule by mouth once daily Brian Ahmadi APRN.CNP [facility]07-08-[facility] Miscellaneous Notes* Telephone Encounter - Brian Ahmadi APRN.CNP - 01/29/2024 2:32 PM EDT The following approved medication requests have been transmitted electronically. Requested Prescriptions Pending Prescriptions Disp Refills omeprazole (PRILOSEC) 20 mg capsule [Pharmacy Med Name: OMEPRAZOLE DR 20 MG CAPSULE] 90 capsule 3 Sig: take 1 capsule by mouth once daily Brian Ahmadi APRN.CNP * Telephone Encounter - Sofia Anne - 01/29/2024 12:31 PM EDT Prescription Refill Information The patient has been identified by name and date of : Yes Caregiver verified no other encounters exist for this prescription request: Yes Caregiver confirmed with patient/requestor that no other refills are due, in the near future, with this provider at this time: Yes The last office visit in the department: 12-14-23 Does the patient have a future office visit with this provider/department: No Requested Prescriptions Pending Prescriptions Disp Refills omeprazole (PRILOSEC) 20 mg capsule [Pharmacy Med Name: OMEPRAZOLE DR 20 MG CAPSULE] 90 capsule 3 Sig: take 1 capsule by mouth once daily Sofia Diaz [facility] January 29, 2024 12:31 PM documented in this encounterFostoria City Hospital07-08-2024 Telephone encounter Note * Telephone Encounter - Sofia Anne - 01/29/2024 12:31 PM EDT Prescription Refill Information The patient has been identified by name and date of : Yes Caregiver verified no other encounters exist for this prescription request: Yes Caregiver confirmed with patient/requestor that no other refills are due, in the near future, with this provider at this time: Yes The last office visit in the department: 12-14-23 Does the patient have a future office visit with this provider/department: No Requested Prescriptions Pending Prescriptions Disp Refills omeprazole (PRILOSEC) 20 mg capsule [Pharmacy Med Name: OMEPRAZOLE DR 20 MG CAPSULE] 90 capsule 3 Sig: take 1 capsule by mouth once daily Sofia Diaz [facility] January 29, 2024 12:31 PM [facility] Work Phone: 1(558) 527-883205-29-2024 Telephone encounter Note* Telephone Encounter - Ross Roldan LPN - 12/20/2023 6:12 PM EDT Patient notified of results, verbalizes understanding of instructions. Ross Roldan LPN [facility]05-29-2024 Miscellaneous Notes* Telephone Encounter - Ross Roldan LPN - 12/20/2023 6:12 PM EDT Patient notified of results, verbalizes understanding of instructions. Ross Roldan LPN * Telephone Encounter - Gypsy Syed APRN.CNP - 12/20/2023 12:41 PM EDT Can you please call the patient and let him know that I reviewed his lab results. Labs were all relatively normal, thiamine level was elevated. However the body will excrete excess into the urine. I would recommend with his ongoing symptoms that he have an evaluation with neurology as discussed during office visit. Try to continue to be mindful with alcohol beverages. Please let me know if he has any questions. Thank you. Gypsy Syed APRN.CNP documented in this encounterFostoria City Hospital05-29-2024 Telephone encounter Note * Telephone Encounter - Gypsy Syed APRN.CNP - 12/20/2023 12:41 PM EDT Can you please call the patient and let him know that I reviewed his lab results. Labs were all relatively normal, thiamine level was elevated. However the body will excrete excess into the urine. I would recommend with his ongoing symptoms that he have an evaluation with neurology as discussed during office visit. Try to continue to be mindful with alcohol beverages. Please let me know if he has any questions. Thank you. Gypsy Syed APRN.CNP [facility]05-23-2024 Instructions* Patient Instructions* Gypsy Syed APRN.CNP - 12/14/2023 11:37 AM EDT Get labs completed Take Claritin daily add on Flonase twice daily, rinse mouth afterwards. Recommend consult with Neurology (Dr. Melonie Mcneil). Follow up pending test results documented in this encounterFostoria City Hospital05-23-2024 History of Present illness Narrative* Gypsy Syed APRN.REBRANDER - 12/14/2023 11:00 AM EDT This is a 58 year old male who presents today with: Patient presents with: difficulty with concentrating: Patient reports confusion or anxiety at times but no memory concerns. Ear Problem: Patient asking if we can check ears to check. HISTORY OF PRESENT ILLNESS: Good De Luna is a 58 year old male. Patient presents with: difficulty with concentrating: Patient reports confusion or anxiety at times but no memory concerns. Ear Problem: Patient asking if we can check ears to check. Here in the office for increased irritability and brain fog. Workup completed in August for brainfog was normal. No abnormalities noted on CMP, B12, or folate. Increased irritibility and increase anxiety this week. Unsure if there has been any increase triggers. His daughter has recently moved in. More anxious than normal. Refers he was out shopping and felt hot and anxious. Used to be a heavy drinker, refers he usually drinks on the weekends. Drinking about 5 beers daily on the weekend. Some diffculty with word recall (names), usually family. Is taking a B complex vitamin daily. Refers hewas seen at [facility] in September and had extensive work up including Brain CT and MRI. Was told he needed to follow up with a Neurologist. Has history of cerebral palsy. History of hypothyroidism, thyroid labs that were completed in September were normal. History of depression, taking Celexa 40 mg daily and using Ativan 0.5 mg at bedtime. Pressure in bilateral ears that comes and goes. No difficulty hearing or pain. Results obtained from care everywhere. 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 Stable incidental developmental venous anomaly in the right paramedian aspect of the cerebellar vermis. Brain MRI: 1. Developmental venous anomaly of the right frontal lobe with an associated cavernous malformation. 2. Second developmental venous anomaly in the posterior fossa/right cerebellar hemisphere. 3. No evidence of mass, hydrocephalus, or infarct. PAST MEDICAL HISTORY: PAST MEDICAL HISTORY Diagnosis Date Anxiety state, unspecified Arthritis Cancer (HCC) Cerebral palsy (HCC) Congenital diplegia (HCC) GERD (gastroesophageal reflux disease) JODEE on CPAP Sleep apnea 09/22/2008 Spinal stenosis Unspecified hypothyroidism PAST SURGICAL HISTORY Procedure Laterality Date TONSILLECTOMY HX TONSILLECTOMY PRIMARY/SECONDARY <AGE 14 Tonsillectomy ALLERGIES Patient has no known allergies. MEDICATIONS Current Outpatient Medications Medication Sig levothyroxine (SYNTHROID) 175 mcg tablet take 1 tablet by mouth every morning ON AN EMPTY STOMACH for THYROID LORazepam (ATIVAN) 0.5 mg Take 1 tablet by mouth at bedtime as needed for up to 90 days. meclizine (ANTIVERT) 25 mg tab Take 1 tablet by mouth three times a day as needed (dizziness) for up to 12 doses. cholecalciferol, vitamin D3, (VITAMIN D3 ORAL) Take 2,000 mcg by mouth once daily. citalopram (CELEXA) 40 mg tablet Take 1 tablet by mouth once daily. omeprazole (PRILOSEC) 20 mg capsule Take 1 capsule by mouth once daily. CPAP Initiate CPAP @ 7 cm of water with humidification. Mask (per patient preference) optional chinstrap (if indicated) , filters, tubing, humidifier and lifetime supplies. multivit-min/folic/vit K/lycop (MEN'S 50 PLUS MULTIVITAMIN ORAL) Take 1 tablet by mouth once daily. vitamin b complex capsule Take 1 capsule by mouth once daily. No current facility-administered medications for this visit. FAMILY HISTORY Adopted: Yes Problem Relation Age of Onset Diabetes Mother Thyroid Maternal Grandmother Social History Tobacco Use Smoking status: Former Packs/day: 1.00 Years: 30.00 Additional pack years: 0.00 Total pack years: 30.00 Types: Cigarettes Quit date: 07/29/2023 Years since quittin.3 Smokeless tobacco: Never Tobacco comments: Pt has cut back to 1/4 pack daily. Vaps off and on Vaping Use Vaping Use: Never used Substance Use Topics Alcohol use: Yes Comment: 3/4 beers daily sometimes Drug use: No REVIEW OF SYSTEMS GENERAL: No weight loss, malaise or fevers/chills HEENT: Negative for frequent or significant headaches, No changes in hearing or vision. NECK: Negative for lumps, goiter, pain and significant neck swelling RESPIRATORY: Negative for cough, hemoptysis, wheezing, dyspnea or shortness of breath CARDIOVASCULAR: Negative for chest pain, leg swelling, orthopnea, or palpitations GI: No nausea, vomiting, or diarrhea/constipation. No hematochezia/melena. No heartburn or reflux symptoms. : No history of dysuria, frequency or incontinence MUSCULOSKELETAL: Negative for joint pain or swelling. SKIN: Negative for lesions, rash, and itching ENDOCRINE: Negative for cold or heat intolerance, polyuria, polydipsia and goiter NEURO: + Brain Fog, Memory MOOD: + Anxiety EXAM: BP 118/70 Pulse 63 Resp 16 Wt 103.1 kg (227 lb 3.2 oz) SpO2 97% BMI 37.81 kg/m PHYSICAL EXAM: General Appearance: Well appearing, alert, in no acute distress, well-hydrated, well nourished. Skin: Skin color, texture, turgor normal, no suspicious rashes or lesions. Head: Normocephalic, no masses, lesions, tenderness or abnormalities. Eyes: Anicteric sclera. Pupils are equally round and reactive to light. Extraocular movements are intact. Ears: External ears normal, canals clear, TM's dull. Neck: Supple, no adenopathy; thyroid symmetric, normal size, no bruits. Lungs: Lungs clear to auscultation. No wheezing, rhonchi, rales. Heart: RRR without murmur, gallop, or rubs. No ectopy. Extremities: No deformities, edema, skin discoloration, clubbing or cyanosis. Good capillary refill. Musculoskeletal: No joint swelling, deformity, or tenderness. Peripheral Pulses: Normal, Capillary refill <2secs, strong peripheral pulses, Pulses palpable. Neurologic: limping gait. Sensation grossly intact. ASSESSMENT/PLAN: 1. Irritability - ICD9: 799.22, ICD10: R45.4 (primary diagnosis) - Denied wanting to increase Celexa at this time. - If needed in the future recommend increasing Celexa to help with anxiety and irritability. 2. Anxiety - ICD9: 300.00, ICD10: F41.9 - Same plan as #1. 3. Memory changes - ICD9: 780.93, ICD10: R41.3 - Get labs completed - Recommend consult with Neurology to go over imagine and discuss symptoms. - CONSULT TO NEUROLOGY - COMPREHENSIVE METABOLIC PANEL - VITAMIN B1 (THIAMINE), WHOLE BLOOD - VITAMIN B12 - FOLATE, SERUM - COMPLETE BLOOD COUNT AND DIFFERENTIAL 4. Hypothyroidism, unspecified type - ICD9: 244.9, ICD10: E03.9 - Instructed patient on importance of taking on an empty stomach either first thing in the morning or at bedtime. - THYROID STIMULATING HORMONE - T4 FREE/FREE THYROXINE 5. Sensation of fullness in both ears - ICD9: 388.8, ICD10: H93.8X3 - Continue with Claritin daily at home, add on Flonase twice daily. - FLUTICASONE PROPIONATE 50 MCG/ACTUATION NASAL SPRAY,SUSPENSION 6. Cerebral palsy, unspecified type (HCC) - ICD9: 343.9, ICD10: G80.9 - Stable 7. Alcohol use - ICD9: V49.89, ICD10: Z78.9 - Recommend decreasing alcohol beverages. Follow-up pending test results or sooner as needed Discussed treatment plan and patient voices understanding. Patient's questions answered appropriately. Medications and potential side effects were discussed and patient voices understanding. Gypsy Syed APRN.CNP This note was partially generated using [employer] voice recognition system. Note was reviewed for accuracy. There may be minor misspellings or grammar miscues with [employer] voice recognition. documented in this encounterFostoria City Hospital05-16-2024 Telephone encounter Note * Telephone Encounter - Gypsy Syed APRN.CNP - 12/07/2023 12:17 PM EDT The following approved medication requests have been transmitted electronically. Requested Prescriptions Pending Prescriptions Disp Refills levothyroxine (SYNTHROID) 175 mcg tablet [Pharmacy Med Name: LEVOTHYROXINE 175 MCG TABLET] 90 tablet 3 Sig: take 1 tablet by mouth every morning ON AN EMPTY STOMACH for THYROID Gypsy Syed APRN.CNP [facility]05-16-2024 Miscellaneous Notes* Telephone Encounter - Gypsy Syed APRN.CNP - 12/07/2023 12:17 PM EDT The following approved medication requests have been transmitted electronically. Requested Prescriptions Pending Prescriptions Disp Refills levothyroxine (SYNTHROID) 175 mcg tablet [Pharmacy Med Name: LEVOTHYROXINE 175 MCG TABLET] 90 tablet 3 Sig: take 1 tablet by mouth every morning ON AN EMPTY STOMACH for THYROID Gypsy Syed APRN.CNP documented in this encounterFostoria City Hospital05-15-2024 Telephone encounter Note * Telephone Encounter - Gypsy Syed APRN.CNP - 12/06/2023 2:44 PM EDT The following approved medication requests have been transmitted electronically. Requested Prescriptions Signed Prescriptions Disp Refills LORazepam (ATIVAN) 0.5 mg 60 tablet 0 Sig: Take 1 tablet by mouth at bedtime as needed for up to 90 days. Authorizing Provider: GYPSY SYED APRN.CNP PDMP website checked and validated. All prescriptions have been APPROPRIATELY filled. No suspiciousactivity was identified. 12/06/2023 by Gypsy Syed APRN.CNP [facility] Miscellaneous Notes* Telephone Encounter - Gypsy Syed APRN.CNP - 12/06/2023 2:44 PM EDT The following approved medication requests have been transmitted electronically. Requested Prescriptions Signed Prescriptions Disp Refills LORazepam (ATIVAN) 0.5 mg 60 tablet 0 Sig: Take 1 tablet by mouth at bedtime as needed for up to 90 days. Authorizing Provider: GYPSY SYED APRN.CNP PDMP website checked and validated. All prescriptions have been APPROPRIATELY filled. No suspiciousactivity was identified. 12/06/2023 by Gypsy Syed APRN.CNP * Telephone Encounter - Saniya Santoro LPN - 12/06/2023 11:02 AM EDT Patient calling said he can not find his Lorazepam rx bottle. He said if was filled last in June. He not sure if had 20 pills left. He said not stolen, he has been back and forth to his girl friends and his place and looked in cars and both house holds and can not find the bottle. He is asking for a new rx to be sent to [facility] pharmacy please. Pending rx if wanted. Please advise documented in this encounterFostoria City Hospital05-15-2024 Telephone encounter Note * Telephone Encounter - Saniya Santoro LPN - 12/06/2023 11:02 AM EDT Patient calling said he can not find his Lorazepam rx bottle. He said if was filled last in June. He not sure if had 20 pills left. He said not stolen, he has been back and forth to his girl friends and his place and looked in cars and both house holds and can not find the bottle. He is asking for a new rx to be sent to [facility] pharmacy please. Pending rx if wanted. Please advise [facility]-15-[facility] Telephone encounter Note* Telephone Encounter - Ava Dunn RN - 12/06/2023 10:53 AM EDT Patient calling requesting to speak with grant officer. Patient states he cannot find his Lorazepam andwould like to see if it is possible for provider to call in a new prescription. Patient denies any new or worsening symptoms of which a provider is not aware:Yes . [facility]-15-[facility]24 Miscellaneous Notes* Telephone Encounter - Ava Dunn RN - 12/06/2023 10:53 AM EDT Patient calling requesting to speak with grant officer. Patient states he cannot find his Lorazepam andwould like to see if it is possible for provider to call in a new prescription. Patient denies any new or worsening symptoms of which a provider is not aware:Yes . documented in this encounterFostoria City Hospital04-14-2024 Miscellaneous Notes* Telephone Encounter - Zoë Miller MA - 11/05/2023 9:54 AM EDT Patient notified of results, verbalized understanding of instructions given. Zoë Miller MA * Telephone Encounter - Etta Hutson LPN - 11/03/2023 7:37 AM EDT Left message for patient to return call. Etta Hutson LPN * Telephone Encounter - Etta Hutson LPN - 11/03/2023 7:36 AM EDT ----- Message from Carolyn Nava APRN.REBRANDER sent at 11/03/2023 7:14 AM EDT ----- Please advise patient the urine culture was negative for any infection. Follow instructions given by provider at visit, f/u with PCP if symptoms persist or worsen. documented in this encounterFostoria City Hospital04-10-2024 History of Present illness Narrative* Terri Mackey, TECHNOLOGIST - 11/01/2023 5:00 PM EDT Radiology Service Progress Note PATIENT NAME: Good De Luna DATE OF SERVICE: November 01, 2023 TIME: 5:17 PM PATIENT IDENTITY VERIFICATION COMPLETED USING TWO (2) IDENTIFIERS: Name and Date of confirmedby patient verbally. FALL SCREENING: Has the patient had 2 falls in the last year or 1 fall with injury or currently using an Ambulatory Assistive Device (Walker, Cane, Wheelchair, Crutches, etc.)? No PATIENT GENDER DATA: Male PATIENT RELEVANT IMPLANT DATA REVIEWED: Yes PATIENT PRESENTS WITH AN IMPLANTABLE OR ATTACHED LANGUAGE AND LITERATURE DIVISION CHAIR: No RADIOLOGY DEPARTMENT: Ultrasound PERIPHERAL IV DATA: Not applicable SIGNED BY: Terri Mackey, TECHNOLOGIST November 01, 2023 5:17 PM documented in this encounterFostoria City Hospital04-10-2024 History of Present illness Narrative* Barbara Quarles APRN.REBRANDER - 11/01/2023 3:05 PM EDT This note was created using Silentsoftriter. Subjective Good De Luna is a 58 year old male. 58 year old male with PMH of cerebral palsy, hypothyroidism, and back pain presents with acute onset right groin pain for 4 days getting worse. Pain is a 0/10 while standing, 4/10 intermittent achingwhile sitting, and 8/10 aching with movement. Pertinent positives include scrotal pain and right groin pain. Pertinent negatives include dysuria, urinary frequency, urinary urgency, hematuria, peniledischarge, loss of bowel or bladder control, fever, body aches, chills, rectal pain, change in backpain, and concern for STIs. Denies trauma or injury. The history is provided by the patient. Penis/Scrotum Problem This is a new problem. The current episode started in the past 7 days. The problem occurs constantly. The problem has been gradually worsening. Pertinent negatives include no abdominal pain, anorexia, arthralgias, chills, diaphoresis, fever, myalgias or rash. Exacerbated by: movement. He has tried acetaminophen and NSAIDs for the symptoms. The treatment provided no relief. PAST MEDICAL HISTORY Diagnosis Date Anxiety state, unspecified Arthritis Cancer (HCC) Cerebral palsy (HCC) Congenital diplegia (HCC) GERD (gastroesophageal reflux disease) JODEE on CPAP Sleep apnea 09/22/2008 Spinal stenosis Unspecified hypothyroidism PAST SURGICAL HISTORY Procedure Laterality Date TONSILLECTOMY HX TONSILLECTOMY PRIMARY/SECONDARY <AGE 14 Tonsillectomy ALLERGIES Patient has no known allergies. MEDICATIONS meclizine (ANTIVERT) 25 mg tab Take 1 tablet by mouth three times a day as needed (dizziness) for up to 12 doses. levothyroxine (SYNTHROID) 175 mcg tablet Take 1 tablet by mouth once daily. Take on empty stomach. For Thyroid. cholecalciferol, vitamin D3, (VITAMIN D3 ORAL) Take 2,000 mcg by mouth once daily. citalopram (CELEXA) 40 mg tablet Take 1 tablet by mouth once daily. omeprazole (PRILOSEC) 20 mg capsule Take 1 capsule by mouth once daily. CPAP Initiate CPAP @ 7 cm of water with humidification. Mask (per patient preference) optional chinstrap (if indicated) , filters, tubing, humidifier and lifetime supplies. multivit-min/folic/vit K/lycop (MEN'S 50 PLUS MULTIVITAMIN ORAL) Take 1 tablet by mouth once daily. vitamin b complex capsule Take 1 capsule by mouth once daily. FAMILY HISTORY Adopted: Yes Problem Relation Age of Onset Diabetes Mother Thyroid Maternal Grandmother Social History Tobacco Use Smoking status: Former Packs/day: 1.00 Years: 30.00 Additional pack years: 0.00 Total pack years: 30.00 Types: Cigarettes Quit date: 07/29/2023 Years since quittin.2 Smokeless tobacco: Never Tobacco comments: Pt has cut back to 1/4 pack daily. Vaps off and on Vaping Use Vaping Use: Never used Substance Use Topics Alcohol use: Yes Comment: 3/4 beers daily sometimes Drug use: No Review of Systems Constitutional: Positive for activity change. Negative for chills, diaphoresis and fever. Gastrointestinal: Negative for abdominal pain, anorexia and rectal pain. Genitourinary: Positive for testicular pain. Negative for decreased urine volume, difficulty urinating, dysuria, enuresis, frequency, genital sores, hematuria, penile discharge, penile pain, penile swelling, scrotal swelling and urgency. Musculoskeletal: Positive for back pain and gait problem. Negative for arthralgias and myalgias. Reports back pain at baseline- denies changes in back pain. History of CP- baseline abnormal gait, denies changes. Skin: Negative for color change and rash. Objective BP 120/70 Pulse 78 Temp 36.3 C (97.4 F) Resp 21 Wt 101.1 kg (222 lb 14.2 oz) SpO2 98% BMI 37.09 kg/m Physical Exam Vitals reviewed. Exam conducted with a linux admin present. Constitutional: General: He is awake. He is not in acute distress. Appearance: Normal appearance. He is obese. He is not ill-appearing, toxic- appearing or diaphoretic. HENT: Head: Normocephalic and atraumatic. Right Ear: Hearing normal. Left Ear: Hearing normal. Nose: Nose normal. Mouth/Throat: Lips: [place]. No lesions. Eyes: General: Lids are normal. Vision grossly intact. No allergic shiner, visual field deficit or scleral icterus. Right eye: No foreign body, discharge or hordeolum. Left eye: No foreign body, discharge or hordeolum. Cardiovascular: Rate and Rhythm: Normal rate and regular rhythm. Heart sounds: Normal heart sounds, S1 normal and S2 normal. Heart sounds not distant. No murmur heard. No friction rub. No gallop. No S3 or S4 sounds. Pulmonary: Effort: Pulmonary effort is normal. No tachypnea, bradypnea, accessory muscle usage, prolonged expiration, respiratory distress or retractions. Breath sounds: Normal breath sounds. No stridor or decreased air movement. No decreased breath sounds, wheezing, rhonchi or rales. Chest: Chest wall: No tenderness. Abdominal: General: Bowel sounds are normal. There is no distension. There are no signs of injury. Palpations: Abdomen is soft. There is no mass. Tenderness: There is no abdominal tenderness. There is no guarding or rebound. Negative signs include Rovsing's sign and McBurney's sign. Hernia: No hernia is present. Genitourinary: Pubic Area: No rash or pubic lice. Penis: Normal. No phimosis, paraphimosis, hypospadias, erythema, tenderness, discharge, swelling orlesions. Testes: Normal. Cremasteric reflex is present. Right: Mass, tenderness or swelling not present. Right testis is descended. Cremasteric reflex is present. Left: Mass, tenderness or swelling not present. Left testis is descended. Cremasteric reflex is present. Epididymis: Right: Normal. Not inflamed or enlarged. No mass or tenderness. Left: Normal. Not inflamed or enlarged. No mass or tenderness. Comments: Scrotum and groin nontender to palpation. Musculoskeletal: General: No swelling, tenderness, deformity or signs of injury. Normal range of motion. Cervical back: Normal range of motion and neck supple. Right lower leg: No edema. Left lower leg: No edema. Skin: General: Skin is warm and dry. Capillary Refill: Capillary refill takes less than 2 seconds. Coloration: Skin is not jaundiced or pale. Findings: No abrasion, abscess, acne, bruising, burn, ecchymosis, erythema, signs of injury, laceration, lesion, petechiae, rash or wound. Neurological: General: No focal deficit present. Mental Status: He is alert and oriented to person, place, and time. Mental status is at baseline. GCS: GCS eye subscore is 4. GCS verbal subscore is 5. GCS motor subscore is 6. Motor: No weakness. Gait: Gait abnormal. Comments: Baseline abnormal gait d/t history of CP. Uses walker for assistance. Denies changes frombaseline. Psychiatric: Attention and Perception: Attention and perception normal. Mood and Affect: Mood and affect normal. Speech: Speech normal. Behavior: Behavior normal. Behavior is cooperative. Thought Content: Thought content normal. Cognition and Memory: Cognition and memory normal. Judgment: Judgment normal. Assessment and Plan ASSESSMENT/PLAN: 1. Pain in right testicle - ICD9: 608.9, ICD10: N50.811 (primary diagnosis) - Acute onset right testicular and groin pain for 4 days, gradually worsening. Denies trauma, injury, edema, redness, urinary symptoms, penile discharge, fever, and loss of bowel or bladder control. - Denies concern for STIs. - LCTA. Heart RRR. Abdomen rounded, soft and nontender to palpation. Testicular exam negative. No rash, edema, erythema, or tenderness to palpation. Cremasteric reflex present. - UA and urine culture sent - US SCROTUM AND CONTENTS- No evidence of testicular torsion or mass. Bilateral scrotal edema. - KETOROLAC 60 MG/2 ML INTRAMUSCULAR SOLUTION - Patient contacted with results - Follow-up with PCP if symptoms do not improve 2. Right groin pain - ICD9: 789.03, ICD10: R10.31 Etiology unclear- muscle strain vs epididymitis vs testicular torsion vs inguinal hernia vs. Idiopathic cause - Acute onset right testicular and groin pain for 4 days, gradually worsening. Denies trauma, injury, edema, redness, urinary symptoms, penile discharge, fever, and loss of bowel or bladder control. - Denies concern for STIs. - LCTA. Heart RRR. Abdomen rounded, soft and nontender to palpation. Testicular exam negative. No rash, edema, erythema, or tenderness to palpation. Cremasteric reflex present. - UA and urine culture sent - US SCROTUM AND CONTENTS- No evidence of testicular torsion or mass. Bilateral scrotal edema. - KETOROLAC 60 MG/2 ML INTRAMUSCULAR SOLUTION - Patient contacted with results - Follow-up with PCP if symptoms do not improve Roseline Henry TEACHING PROVIDER (Physician/PA/PHYSICIAN UNDERWRITER) NOTE OF PERSONAL INVOLVEMENT IN CARE: I have personally seen and examined the patient and performed the medical decision-making components. I have reviewed the Advanced Practice Registered Nurse (PHYSICIAN UNDERWRITER) Student's documentation and verified the findings in the note as written. Any additions or changes are noted in bold/italics. Signature: Barbara Quarles Date: 11/01/2023 Time: 7:13 PM documented in this encounterFostoria City Hospital04-04-2024 Miscellaneous Notes* Telephone Encounter - Mick Youngblood MA - 10/26/2023 4:53 PM EDT This has been signed and sent to be mailed out. Mick Youngblood MA * Telephone Encounter - Mick Youngblood MA - 10/26/2023 2:38 PM EDT Parking placard on PCP's desk to sign. Pt requesting to have this mailed to his home. Mick Youngblood MA documented in this encounterFostoria City Hospital03-26-2024 History of Present illness Narrative* Mathew Cobian MD - 10/17/2023 10:00 AM EDT Chief Complaint Patient presents with: Hospital Follow Up HPI Good De Luna is a 58 year old male who presents here today for Hospital Discharge Follow up.. Pt went to [facility] on 09/26/23 and transferred to [facility] on 09/26/23 for Developmental venous anomaly. Stroke was ruled out. Discharged to 09/29/23 to [facility]. Pt was discharged from [facility] on 10/14/23. He states he is doing good. He states that he felt good going home. He states that everything h urts today, thinks he laid the wrong way. He has been able to walk around without his stick or walker. He does not have any Home Health aids coming out. He would like to do some PT at [facility]. He also needs a referral to see Pain Management Dr. Conklin. Feels he needs referral to ENT as well due to still having dizziness and ear issues. HPI Good De Luna is a 58 y.o. male with history of cerebral palsy, hypothyroidism, prostate cancer whopresents as a transfer from an outside hospital as a level 2 hemorrhagic stroke alert. Brief History: Patient reports that he was usual state of health until this past Monday when he noted onset of dizziness/lightheadedness. He denies any room spinning. Denies any headache, numbness,tingling, weakness. He denies any head trauma, notes that he and his grandson do play a game where they bumped their heads together but states that this is not hard. He has not had any chest pain, shortness of breath, cough, sore throat, runny nose, fevers, chills, abdominal pain, nausea, vomiting,changes in bowel/bladder habits. We recently had the pleasure of taking care of Good De Luna at [facility]. As you well know Good De Luna is a 58 y.o. male former smoker (quit 07/2023) with a history of cerebral palsy and hypothyroidism who presented to an OSH on 09/26/2023 because he had been feeling foggy and lightheaded since 09/22. CTH showed acute R frontal IPH. Outside hospital CT Angiography normal, no spot sign.No anticoagulation. Transferred to [facility]. NIHSS 0. His work up including a brain MRI confirmed a developmental venous anomaly and no acute hemorrhage. He was evaluated by OT, PT and speech therapy. He is being discharged to an [facility] in a stable condition. This discharge plan has been explained to the patient and his girlfriend. Diagnosis: Developmental venous anomaly, Pre-syncope Management plan at discharge: -Continue home medications including synthroid, omeprazole and citalopram -Therapies at an [facility] Follow up plan after discharge: -Follow up with Neurosurgery 4-6 weeks of discharge -Follow up with PCP within 2 weeks of discharge Depression screening: Denies feeling depressed or hopeless. Does take Celexa which is working well for him. Past medical history, appointments, medications, allergies reviewed. Previous Medical History PAST MEDICAL HISTORY Diagnosis Date Anxiety state, unspecified Arthritis Cancer (HCC) Cerebral palsy (HCC) Congenital diplegia (HCC) GERD (gastroesophageal reflux disease) JODEE on CPAP Sleep apnea 09/22/2008 Spinal stenosis Unspecified hypothyroidism Previous Surgical History PAST SURGICAL HISTORY Procedure Laterality Date TONSILLECTOMY HX TONSILLECTOMY PRIMARY/SECONDARY <AGE 14 Tonsillectomy Family History FAMILY HISTORY Adopted: Yes Problem Relation Age of Onset Diabetes Mother Thyroid Maternal Grandmother Patient Allergies ALLERGIES No Known Allergies Current Medications Current Outpatient Medications on File Prior to Visit Medication Sig meclizine (ANTIVERT) 25 mg tab Take 1 tablet by mouth three times a day as needed (dizziness) for up to 12 doses. levothyroxine (SYNTHROID) 175 mcg tablet Take 1 tablet by mouth once daily. Take on empty stomach. For Thyroid. cholecalciferol, vitamin D3, (VITAMIN D3 ORAL) Take 2,000 mcg by mouth once daily. docosahexaenoic acid/epa (FISH OIL CONCENTRATE ORAL) Take 1 capsule by mouth once daily. benzonatate (TESSALON PERLE) 100 mg capsule Take 2 capsules by mouth three times a day as needed. predniSONE (DELTASONE) 20 mg tablet Take 1 tablet by mouth once daily. citalopram (CELEXA) 40 mg tablet Take 1 tablet by mouth once daily. cholecalciferol, Vitamin D3, (VITAMIN D3) 1,250 mcg (50,000 unit) cap capsule Take 1 capsule by mouth one time a week. (Patient not taking: Reported on 09/14/2023) omeprazole (PRILOSEC) 20 mg capsule Take 1 capsule by mouth once daily. CPAP Initiate CPAP @ 7 cm of water with humidification. Mask (per patient preference) optional chinstrap (if indicated) , filters, tubing, humidifier and lifetime supplies. multivit-min/folic/vit K/lycop (MEN'S 50 PLUS MULTIVITAMIN ORAL) Take 1 tablet by mouth once daily. vitamin b complex capsule Take 1 capsule by mouth once daily. iv contrast (will be provided with radiology test) MRI Prostate Inject, intravenously, once for 1 dose. No IV access, insert saline lock prior to the beginning of sedation, infusion, injection of imaging exam. Discontinue saline lock post exam. If Pt. has a central line or IVAD, may access for administration according to line specific nursing protocol. Once exam is complete flush line and de-access according to line specific nursing protocol in the MR contrast administration guidelines link. No current facility-administered medications on file prior to visit. Social History Social History Tobacco Use Smoking status: Former Packs/day: 1.00 Years: 30.00 Additional pack years: 0.00 Total pack years: 30.00 Types: Cigarettes Quit date: 07/29/2023 Years since quittin.2 Smokeless tobacco: Never Tobacco comments: Pt has cut back to 1/4 pack daily. Vaps off and on Vaping Use Vaping Use: Never used Substance Use Topics Alcohol use: Yes Comment: 3/4 beers daily sometimes Drug use: No EXAM: BP 120/72 Pulse 86 Resp 16 Wt 103 kg (227 lb) SpO2 98% BMI 37.77 kg/m General Appearance: Well appearing, alert, in no acute distress, well-hydrated, well nourished. andWheelchair. Lungs: Lungs clear to auscultation. No wheezing, rhonchi, rales.. Heart: RRR without murmur, gallop, or rubs. No ectopy. Health Maintenance List HIV Screening Never done Hepatitis B Vaccine(1 of 3 - 19+ 3-dose series) Never done Colorectal Cancer Screening Never done Shingrix Vaccine(1 of 2) Never done Lung Cancer Screening due on 06/08/2022 Depression Assessment due on 07/24/2023 Influenza Vaccine(1) due on 01/21/2024 Covid-19 Vaccine( season) due on 10/16/2024 Annual PCP Team Chronic Disease Visit due on 09/14/2024 Diabetes Screening due on 10/04/2026 DTaP,Tdap,Td Vaccine(3 - Td or Tdap) due on 08/28/2028 Prostate Cancer Screening Discussion due on 09/12/2028 Lipid Screening due on 09/25/2028 Hepatitis C Screening Completed HPV Vaccine Aged Out Data reviewed Hospital records ASSESSMENT/PLAN: 1. Hospital discharge follow-up - ICD9: V67.59, ICD10: Z09 (primary diagnosis) Improved Continue with PT 2. Screening for colon cancer - ICD9: V76.51, ICD10: Z12.11 - CONSULT TO GENERAL SURGERY 3. Chronic bilateral low back pain with right-sided sciatica - ICD9: 724.2, 724.3, 338.29, ICD10: M54.41, G89.29 Consult PT-[facility] Consult Pain Management-Dr. Conklin 4. Dizziness - ICD9: 780.4, ICD10: R42 Continue current medications. Consult ENT-[facility] 5. Cerebral palsy, unspecified type (HCC) - ICD9: 343.9, ICD10: G80.9 Consult PT-[facility] Follow up in as needed. I agree with the Chief Complaint, ROS, and Past Histories independently gathered by the clinical faculty support coordinator and the remaining scribed note accurately describes my personal service to the patient. Medical Decision Making: Problems: Moderate: 2+ stable chronic illnesses Data: Unique source(s) for external note(s) reviewed: 1 Risk: Moderate: Drug management Medical Decision Making Level: 4 - Moderate Mathew Cobian MD The documentation for this note was completed by Laura Whaley MA acting as scribe for Mathew Cobian MD. October 17, 2023 10:12 AM. Laura Whaley MA documented in this encounterFostoria City Hospital03-25-2024 Miscellaneous Notes* Telephone Encounter - Mick Youngblood Ma - 10/16/2023 3:34 PM EDT Office has attempted to fax to number below 3 x with out success. Call to Adrianna and received . LM on to return call to office and speak with Triage Nurse. Please update Adrianna on message above. Is there another number we can fax too? Can we verify number below. Thanks, Mick Youngblood Ma * Telephone Encounter - Mick Youngblood Ma - 10/16/2023 1:25 PM EDT Office received discharge from [facility] in office. Faxed to Adrianna at information below. Mick Youngblood Ma * Telephone Encounter - Ross Abarca RN - 10/16/2023 9:33 AM EDT Adrianna from [facility]. She states she wanted to make sure Dr. Cobian was aware that pt was discharged home on Monday from [facility]. She is asking that we fax pt's discharge summary to her at [phone]. Explained that it did not appear that we have it yet. She states whenever we get it to please fax it to her. documented in this encounterFostoria City Hospital03-20-2024 Telephone encounter Note * Telephone Encounter - Tere Mak - 10/11/2023 11:55 AM EDT Name of caller: Park Relation to patient: [facility] Contact phone number: [phone] Appointment scheduled with: Dr. Taylor Appointment date & time: 10/18/23 8:00 AM Reason for visit (are you having any symptoms) : Developmental venous anomaly 09/26/23 ED admission Transportation issues/ concerns: No Special accommodations? ( wheel chair, etc) : None Current medications: No Any refills need: None Any chronic conditions the provider should be aware of: No [id number] Miscellaneous Notes* Telephone Encounter - Tere Mak - 10/11/2023 11:55 AM EDT Name of caller: Park Relation to patient: [facility] Contact phone number: [phone] Appointment scheduled with: Dr. Taylor Appointment date & time: 10/18/23 8:00 AM Reason for visit (are you having any symptoms) : Developmental venous anomaly 09/26/23 ED admission Transportation issues/ concerns: No Special accommodations? ( wheel chair, etc) : None Current medications: No Any refills need: None Any chronic conditions the provider should be aware of: No documented in this [facility]03-11-2024 Miscellaneous Notes* Telephone Encounter - Uma Jett RN - 10/02/2023 3:58 PM EDT Adrianna Slitter Creaser Slotter Helper with [employer] calls to report that patient was discharged from [facility] on 09/28 and admitted to [facility]. Uma Jett RN documented in this encounterFostoria City Hospital03-08-2024 Nurse Note* Nursing Notes - Giselle Adame RN - 09/29/2023 10:49 AM EST Report called Mandi Miller RN. CHIKIS,GLENROY faxed IVs discontinued Discharge suite to come transport pt to his SO. [facility]03-08-2024 Miscellaneous Notes* Nursing Notes - Giselle Adame RN - 09/29/2023 10:49 AM EST Report called Mandi Miller RN. AVS,GLENROY faxed IVs discontinued Discharge suite to come transport pt to his SO. * Plan of Care - Laura Gary OT - 09/29/2023 8:11 AM EST Problem: OT - ADLs Goal: Grooming - Patient will complete grooming in standing with modified independence and supervision for improved ability to safely complete ADLs. Outcome: Progressing Problem: OT - Endurance Goal: Endurance Functional Task Standing - Patient will engage in standing functional task for 15 minutes with standby assistance to improve activity tolerance necessary for safe ADL completion at recommended discharge destination. Outcome: Progressing Problem: OT - Other Goal: Energy Conservation with ADL's - Patient will independently utilize at least 2 energy conservation/pacing strategies during ADL completion to promote success and safety during daily routine. Outcome: Progressing Problem: OT - ADLs Goal: Bathing - Patient will perform full body bathing/dressing routine with modified independence and supervision while seated for improved ability to complete self-care activities Outcome: Ongoing Problem: OT - Strength/ROM Goal: Strength/ROM ADL Participation - Patient will participate in UE exercise program with supervision to prevent deconditioning while in hospital and to max UE ROM/Coordination/strength for ADLs. Outcome: Ongoing * Plan of Care - Khadijah Rahman RN - 09/29/2023 2:51 AM EST Problem: Patient Care Overview Goal: Discharge Needs Assessment Outcome: Progressing Goal: Interdisciplinary Rounds/Family Conf Outcome: Progressing * Plan of Care - Ashlyn Romero RN - 09/28/2023 3:33 PM EST Problem: Patient Care Overview Goal: Discharge Needs Assessment Outcome: Progressing Flowsheets (Taken 09/28/2023 1523) Discharge Facility/Level Of Care Needs: rehabilitation facility Outpatient/Agency/Support Group Needs: inpatient rehabilitation facility Discharge Disposition: rehab facility Problem: Patient Care Overview Goal: Plan of Care Review Outcome: Completed Flowsheets (Taken 09/28/2023 1523) Plan Of Care Reviewed With: patient significant other Progress: improving Outcome Summary: Hem stroke was ruled out. 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 Goal: Individualization & Mutuality Outcome: Completed Flowsheets (Taken 09/28/2023 1523) What Questions Do You Have About Your Health or Care?: Questions concerning ongoing lightheadedness. Pt encouraged to follow up with PCP to continue with discovery of causes for lightheadedness. Problem: Stroke (Ischemic) (Adult) Goal: Signs and Symptoms of Listed Potential Problems Will be Absent, Minimized or Managed (Stroke) Description: Signs and symptoms of listed potential problems will be absent, minimized or managed by discharge/transition of care (reference Stroke (Ischemic) (Adult) CPG). Outcome: Completed Note: No stroke per MRI Problem: Patient Care Overview Goal: Interdisciplinary Rounds/Family Conf Flowsheets (Taken 09/28/2023 1523) Participants: physician advanced practice nurse family patient Note: Review of plan for IPR, no stroke (DVA) and Urine Cx reviewed (ATB d/c'd) * Plan of Care - Froilan Stallworth, SANDEEP - 09/28/2023 2:19 PM EST Problem: PT - General Goals Goal: Supine <-> Sit Transfers - Patient will perform supine to/from sit transfers with independence and without use of hospital bed features in order to improve functional mobility and safety. Outcome: Progressing Goal: Sit <-> Stand Transfers - Patient will perform sit to/from stand transfers with modified independence and least restrictive device in order to improve functional mobility and safety. Outcome: Progressing Goal: Ambulation - Patient will ambulate 150+ feet with modified independence and least restrictivedevice to improve ability to safely navigate home and community. Outcome: Progressing * Plan of Care - Khadijah Rahman RN - 09/28/2023 3:37 AM EST Problem: Patient Care Overview Goal: Plan of Care Review Outcome: Progressing Goal: Individualization & Mutuality Outcome: Progressing Goal: Discharge Needs Assessment Outcome: Progressing Goal: Interdisciplinary Rounds/Family Conf Outcome: Progressing Problem: Stroke (Ischemic) (Adult) Goal: Signs and Symptoms of Listed Potential Problems Will be Absent, Minimized or Managed (Stroke) Description: Signs and symptoms of listed potential problems will be absent, minimized or managed by discharge/transition of care (reference Stroke (Ischemic) (Adult) CPG). Outcome: Progressing * Plan of Care - Connie Jordan, PT - 09/27/2023 10:25 AM EST Problem: PT - General Goals Goal: Supine <-> Sit Transfers - Patient will perform supine to/from sit transfers with independence and without use of hospital bed features in order to improve functional mobility and safety. Outcome: Ongoing Goal: Sit <-> Stand Transfers - Patient will perform sit to/from stand transfers with modified independence and least restrictive device in order to improve functional mobility and safety. Outcome: Ongoing Goal: Ambulation - Patient will ambulate 150+ feet with modified independence and least restrictivedevice to improve ability to safely navigate home and community. Outcome: Ongoing Goal: Stairs - Patient will ascend/descend 3 stairs with modified independence, least restrictive device, and single railing(s) to improve ability to safely navigate home and community. Outcome: Ongoing * Plan of Care - Bridget Jones OT - 09/27/2023 9:57 AM EST Problem: OT - ADLs Goal: Grooming - Patient will complete grooming in standing with modified independence and supervision for improved ability to safely complete ADLs. Outcome: Ongoing Goal: Bathing - Patient will perform full body bathing/dressing routine with modified independence and supervision while seated for improved ability to complete self-care activities Outcome: Ongoing Problem: OT - Endurance Goal: Endurance Functional Task Standing - Patient will engage in standing functional task for 15 minutes with standby assistance to improve activity tolerance necessary for safe ADL completion at recommended discharge destination. Outcome: Ongoing Problem: OT - Strength/ROM Goal: Strength/ROM ADL Participation - Patient will participate in UE exercise program with supervision to prevent deconditioning while in hospital and to max UE ROM/Coordination/strength for ADLs. Outcome: Ongoing Problem: OT - Other Goal: Energy Conservation with ADL's - Patient will independently utilize at least 2 energy conservation/pacing strategies during ADL completion to promote success and safety during daily routine. Outcome: Ongoing * Plan of Care - Sanjay Ledesma MD - 09/27/2023 7:46 AM EST Neurosurgery Update: Consulted for [facility]. Briefly, Mr. Good De Luna is a 58 y.o. male w/ cerebral palsy, hypothyroidism, prostate cancer Dominique 6 currently on surveillance p/w dizziness and lightheadedness starting monday. 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 No significant difference vs OSH imaging. No neurosurgical intervention at this time. - Please have patient follow up with Dr. Brothers in 4-6 weeks in outpatient clinic - Neurosurgery will sign-off. Please call with questions. Sanjay Ledesma MD, Neurosurgery NS2 ([phone]) [facility] History of Present illness Narrative* Laura Gary, OT - 09/29/2023 8:42 AM EST Acute Occupational Therapy Treatment Prior to Admission AM-PAC Score: PRIOR LEVEL AM-PAC Activity Raw Score: 24 PRIOR LEVEL AM-PAC Mobility Raw Score: 24 Current AM-PAC score(s): CURRENT AM-PAC Activity Raw Score: 19 Based on the above AM-PAC score(s), and OT clinical judgment, discharge destination recommendation is: Inpatient Rehab Facility Supporting Factors (would benefit from skilled therapy services): Patient status is anticipated to be appropriate to tolerate inpatient rehab therapy requirements at time of discharge from acute care, Impaired balance, Decreased endurance, Assistance needed with functional mobility Mobility equipment available at home: 2 wheeled walker (walking stick) ADL equipment available at home: shower chair Equipment recommendations for discharge: to be determined Current therapy frequency recommendation(s) in acute: 5 times a week Precautions and Weightbearing Status: OT Existing Precautions/Restrictions: fall No critical lines at this time Patient Safety Communication Prior to Visit: Nursing Subjective: Pt agreeable to session, plans to go to rehab later today. Pain: General Pain Documentation (Adult, OB, Peds) Presence of Pain: complains of pain/discomfort Pain Location: back DVPRS (Defense and Veterans Pain Rating Scale) DVPRS: Rest: 5- moderate pain DVPRS: Activity: 5- moderate pain Objective/Observation: Vitals/Vitals Responses to Treatment: no adverse reaction to session O2 Device: room air Cognition Overall Cognitive Status: Within Functional Limits Arousal/Alertness: Appropriate responses to stimuli Orientation Level: Oriented X4 Following Commands: Follows all commands and directions without difficulty Safety Judgment: Good awareness of safety precautions ADL Assessment/Intervention: Grooming Assistance: Contact guard assist Grooming Location: standing at sink Grooming Deficit: Activity tolerance, Balance, Generalized weakness, Follows safety/precautions Grooming Skilled Rationale (Verbal/Tactile/Visual/Demonstration): Facilitate positioning, Facilitate postural control, Cues for increased safety, Setup, Supervision, Standing with assistive device Grooming Intervention/Details: Facilitated in oral hygiene, washing face and hair care. Extremity Assessments: See OT Evaluation flowsheet for Extremity Measurement updates. Balance: Sitting Balance Static Sitting-Level of Assistance: Modified independent Dynamic Sitting-Level of Assistance: Standby Standing Balance Static Standing-Level of Assistance: Contact guard Dynamic Standing-Level of Assistance: Contact guard, Minimum assistance Standing-Balance Support: Gait belt, 2 wheeled walker Skilled Rationale: Verbal cues, Positioning, Hand placement, Full extension to upright positioning/posture, Technique of activity, Cues for increased safety, Energy conservation Standing Balance Skilled Intervention/Details: Tolerates ~5 minutes standing at sink for grooming tasks, followed by seated rest. Pt facilitated in tasks to promote dynamic balance/reaching by erasing Xs on door at various locations; upgraded challenge with letter locations, standing distance from door, crossing midline, and using BUEs; cues for UE support prn for improved safety; performed x2, ~3 minutes each, with seated rest between; rates difficutly 12/31. Transfer Assessment/Intervention: Sit to Stand Transfer Ponder Level: Sit->Stand: contact guard assist Assistive Device: Sit->Stand: gait belt, 2 wheeled walker Skilled Rationale: Verbal cues, Positioning, Hand placement, Full extension to upright positioning/posture, Technique of activity, Cues for increased safety Skilled Intervention/Details: Sit->Stand: x4 from EOB. Stand to Sit Transfer Ponder Level: Stand->Sit: contact guard assist Assistive Device: Stand->Sit: gait belt, 2 wheeled walker Skilled Rationale: Verbal cues, Positioning, Hand placement, Technique of activity, Cues for increased safety Functional Mobility: Functional Mobility Ponder Level: Functional Mobility/Gait: contact guard assist Assistive Device: Functional Mobility/Gait: 2 wheeled walker, gait belt Functional Mobility Distance: Distance needed to access restroom Ambulation Distance (Feet): 45 (15,15,5,5,5) Functional Mobility Deficits: Activity tolerance, Balance, Follow safety/precautions, Generalized weakness Functional Mobility Skilled Rationale: Verbal cues, Cues for increased safety, Energy conservation,Technique of activity Outcome Score(s): CURRENT [facility] Daily Activity Inpatient Short Form Putting on/Taking Off Lower Body Clothin - A Little Assistance Bathin - A Little Assistance Toiletin - A Little Assistance Putting on/Taking Off Upper Body Clothin - A Little Assistance Groomin - A Little Assistance Eatin - No Assistance CURRENT [facility] Activity Raw Score: 19 CURRENT [facility] Activity Functional Limitation/Modifier: 42.80% Currently Impaired in Daily Activity- CK Assessment & Plan: Patient progressing toward goals this date with improving dynamic standing balance/tolerance duringADLs and dynamic reaching tasks with CGA-min A but continues to be limited by decreased activity tolerance, balance and LB ADL performance. Patient will continue to benefit from skilled OT services to address strength, activity tolerance, balance, functional transfers/mobility and ADLs for improvedsafety/independence with occupational performance. Patient Instruction/Education this session: Learners: Patient, Family Education provided: Balance training, Plan of care, Role of this discipline Plan for next session: dynamic standing balance/tolerance Acute OT Goals Plan of Care by Laura Gary OT at 09/29/2023 8:11 AM Version 1 of 1 Problem: OT - ADLs Goal: Grooming - Patient will complete grooming in standing with modified independence and supervision for improved ability to safely complete ADLs. Outcome: Progressing Problem: OT - Endurance Goal: Endurance Functional Task Standing - Patient will engage in standing functional task for 15 minutes with standby assistance to improve activity tolerance necessary for safe ADL completion at recommended discharge destination. Outcome: Progressing Problem: OT - Other Goal: Energy Conservation with ADL's - Patient will independently utilize at least 2 energy conservation/pacing strategies during ADL completion to promote success and safety during daily routine. Outcome: Progressing Problem: OT - ADLs Goal: Bathing - Patient will perform full body bathing/dressing routine with modified independence and supervision while seated for improved ability to complete self-care activities Outcome: Ongoing Problem: OT - Strength/ROM Goal: Strength/ROM ADL Participation - Patient will participate in UE exercise program with supervision to prevent deconditioning while in hospital and to max UE ROM/Coordination/strength for ADLs. Outcome: Ongoing OT treatment consisted of the following to work and progress towards the above goal(s): OT Evaluation and Treatment Time Self Care/Home Management (ADLs) Time Entry: 13 Therapeutic Activity Time Entry: 13 Treating Therapist: Laura Gary OT Additional Details: OT Co-Eval/Treatment Information Co-evaluation/co-treatment performed?: No simultaneous skilled care performed PPE used during patient interaction: facemask, gloves Patient location at end of session: chair Alarms on at end of session: none, none altered Needs in reach. Time In: 744 Time Out: 08 Total Visit Time: 26 minutes Total Treatment Time (skilled, billable minutes): 26 minutes Upon discontinuation of Acute Care Occupational Therapy Services or patient discharge from the hospital this note represents the current Occupational Therapy Discharge Summary. * Cristina Chan MD - 09/29/2023 8:41 AM EST Stroke Attending Addendum (Date of service 09/29/23): I have interviewed and examined patient. I have reviewed Adam Pulido CNP's note and agree with the following highlights, additions, and addendums: The patient is a 58 y.o. right-handed male ex-smoker with a history of mild cerebral palsy (affects bilateral legs,/gait, uses a walking stick) and hypothyroidism who on developed symptoms of positional light-headedness on 09/22 (since Sat evening on and off). He saw his PCP who recommended he go to ER. At the Outside hospital Emergency Room CT brain showed a right frontal hypodensity. OSH CT angiogram head/neck showed large vein adjacent to hyperdensity. He was transferred to [facility] ER and on arrival NIHSS was 0. The patient was admitted to the stroke team. LDL 129, HgbA1c 5.5. MRI brain confirms right frontal dVA. UCx negative, discontinued antibiotics. Interval Overnight History: 129/67. Patient feels light-headed still but better. He feels his gait is at baseline. Neurological examination shows nonfocal exam, NIHSS-0. Assessment/Plan: Right frontal dVA, Pre-syncope. ICH has been ruled out, CTA/MRI brain shows dVA. PT/OT consult- ARF. DCto ARF today. For pre-syncope, orthostatics negative, encourage po fluid intake and follow-up with medicine. Follow-up in NS in outpatient clinic. Follow-up with PCP in 1 week. Cristina Chan MD * NYDIA Guzman - 09/28/2023 2:04 PM EST Care Management Discharge Note Selected Continued Care - Admitted Since 09/26/2023 Destination Coordination complete. Service Provider Selected Services Address Phone Fax Patient Preferred [facility] Inpatient Rehabilitation [address] [place] [address] ---- Patient medically stable for discharge per physician/medical team. Pt to discharge to [facility] tomorrow at 1300. SO to transport Pt to [facility]. The phone number for report is [phone], and the fax number for [facility] is [phone]. Pt to schedule appointment with neurosurgery. Patient/Oil Mixer remain in agreement with the discharge plan. ARMEN Martinez Slitter Creaser Slotter Helper [phone] CM updated Pt's Home Care Waiver CM on the status of the discharge plan. ARMEN Martinez Slitter Creaser Slotter Helper [phone] * Froilan Stallworth PT - 09/28/2023 1:37 PM EST Acute Physical Therapy Treatment Prior to Admission [facility] score(s): PRIOR LEVEL AM-PAC Mobility Raw Score: 24 PRIOR LEVEL AM-PAC Activity Raw Score: 24 Current AM-PAC score(s): CURRENT AM-PAC Mobility Raw Score: 18 Based on the above AM-PAC score(s) and PT clinical judgment, patient is a good candidate for discharge to Inpatient Rehab Facility Supporting Factors (would benefit from skilled therapy services): Patient status is anticipated to be appropriate to tolerate inpatient rehab therapy requirements at time of discharge from acute care, Impaired functional status, Decreased strength, Impaired balance, Decreased endurance necessitating skilled therapy services, but able to tolerate therapy requirements for inpatient rehab, Fall risk, Recent decline in functional mobility Mobility equipment available at home: 2 wheeled walker (walking stick) ADL equipment available at home: shower chair Equipment needed for discharge: none Current therapy frequency recommendation in acute: Therapy Frequency: 5 times a week Activity Recommendations for outside of rehab session: staff assist with 2WW, gait belt to ambulateshort distances in room, OOBTC for meals with staff Precautions and Weightbearing Status: Existing Precautions/Restrictions: fall Patient Safety Communication Prior to Visit: Nursing Subjective: I was about to take a nap, but I'll do therapy instead. Pain: General Pain Documentation (Adult, OB, Peds) Presence of Pain: complains of pain/discomfort Pain Location: back DVPRS (Defense and Veterans Pain Rating Scale) DVPRS: Rest: 5- moderate pain DVPRS: Activity: 5- moderate pain Objective/Observation: Vitals/Vitals Responses to Treatment: WFL O2 Device: room air Cognition Overall Cognitive Status: Within Functional Limits Arousal/Alertness: Appropriate responses to stimuli Orientation Level: Oriented X4 Extremity Assessments: See PT Evaluation flowsheet for Extremity Measurement updates. Skin and Edema: Balance: Standing Balance Static Standing-Level of Assistance: Contact guard Dynamic Standing-Level of Assistance: Contact guard, Minimum assistance Standing-Balance Support: Gait belt, 2 wheeled walker Skilled Rationale: Verbal cues, Positioning, Full extension to upright positioning/posture, Finding/maintaining midline positioning Standing Balance Skilled Intervention/Details: Standing balance tasks progressing from BUE support to no UE support. Standing eyes open/closed with increased posterior sway with eyes closed, Narrowing of MADDISON with eyes open/closed and no UE support. Modified tandem stance with min assist and cues for maintaining weight bearing through metatarsal heads to prevent posterior LOB. Heel raises and toe raises with BUE support. Mobility Assessment/Intervention: Supine to Sit Mobility Ponder Level: Supine->Sit: stand-by assist Bed Features/Set-up: Supine->Sit: Flat Transfer Assessment/Intervention: Sit to Stand Transfer Ponder Level: Sit->Stand: contact guard assist Assistive Device: Sit->Stand: gait belt, 2 wheeled walker Skilled Rationale: Verbal cues, Hand placement, Facilitate anterior shift Stand to Sit Transfer Ponder Level: Stand->Sit: contact guard assist Assistive Device: Stand->Sit: gait belt Skilled Rationale: Verbal cues, Positioning, Controlled descent for sitting Gait/Functional Mobility Assessment/Intervention: Gait Assessment Ponder Level: Gait: contact guard assist Assistive Device: Gait: gait belt, 2 wheeled walker Ambulation Distance (Feet): 65 (65x2) Gait Deviations Identified: decreased kirsten, decreased gait speed, decreased stride length, increased postural sway, path deviation Gait Skilled Rationale: verbal, increase step length, upright posture, increase step width, improvefoot placement, increase foot clearance Skilled Intervention/Details - Gait: Educated for maintaining appropriate MADDISON with ambulation and upright posture. Instructed for heel strike bilaterally to improve independence. Stairs Assessment/Intervention: CURRENT [facility] Basic Mobility Inpatient Short Form Turning over in bed: 4 - No Assistance Sitting/standing from chair: 3 - A Little Assistance Moving from lying on back to sittin - A Little Assistance Moving to and from bed to chair: 3 - A Little Assistance Walk in hospital room: 3 - A Little Assistance Climbing 3-5 steps with a railin - A Lot of Assistance CURRENT [facility] Mobility Raw Score: 18 CURRENT [facility] Mobility Functional Limitation/Modifier: 46.58% Currently Impaired in Basic Mobility- CK Assessment & Plan: Patient is progressing with improved transfers and progression with standing balance tasks. Patientlimited by impaired gait, transfers, and balance with increased risk for falls. Patient would benefit from continued skilled PT to increase functional mobility, transfers, gait, and balance to reducerisk for falls. Patient Instruction/Education this session: Learners: Patient Education provided: Activity outside of therapy Plan for next session: progress gait distance Acute PT Goals Plan of Care by Froilan Stalwlorth PT at 09/28/2023 2:19 PM Version 1 of 1 Problem: PT - General Goals Goal: Supine <-> Sit Transfers - Patient will perform supine to/from sit transfers with independence and without use of hospital bed features in order to improve functional mobility and safety. Outcome: Progressing Goal: Sit <-> Stand Transfers - Patient will perform sit to/from stand transfers with modified independence and least restrictive device in order to improve functional mobility and safety. Outcome: Progressing Goal: Ambulation - Patient will ambulate 150+ feet with modified independence and least restrictivedevice to improve ability to safely navigate home and community. Outcome: Progressing PT treatment consisted of the following to progress towards the above goal(s): PT Evaluation and Treatment Time Gait Training Time Entry: 11 Neuromuscular Re-Education Time Entry: 12 Treating Therapist: Froilan Stallworth PT Additional Details: PT Co-Eval/Treatment Information Co-evaluation/co-treatment performed?: No simultaneous skilled care performed PPE used during patient interaction: facemask, gloves Patient location at end of session: edge of bed Alarms on at end of session: RN aware Needs in reach. Time In: 1337 Time Out: 1401 Total Visit Time: 24 minutes Total Treatment Time (skilled, billable minutes): 24 minutes Upon discontinuation of Acute Care Physical Therapy Services or patient discharge from the hospitalthis note represents the current Physical Therapy Discharge Summary. * Cristina Chan MD - 09/28/2023 11:55 AM EST Stroke Attending Addendum (Date of service 09/28/23): I have interviewed and examined patient. I have reviewed Lazaro Smith CNP's note and agree with thefollowing highlights, additions, and addendums: The patient is a 58 y.o. right-handed male ex-smoker with a history of mild cerebral palsy (affects bilateral legs,/gait, uses a walking stick) and hypothyroidism who on developed symptoms of positional light-headedness on 09/22 (since Sat evening on and off). He saw his PCP who recommended he go to ER. At the Outside hospital Emergency Room CT brain showed a right frontal hypodensity. OSH CT angiogram head/neck showed large vein adjacent to hyperdensity. He was transferred to [facility] ER and on arrival NIHSS was 0. The patient was admitted to the stroke team. LDL 129, HgbA1c 5.5. MRI brain confirms right frontal dVA. UCx negative. Interval OvernightHistory: 132/60. Patient feels light-headed still but better. He feels his gait is at baseline. Neurological examination shows nonfocal exam, NIHSS-0. Assessment/Plan: Right frontal dVA. ICH has beenruled out, CTA/MRI brain shows dVA. DC stroke orders. PT/OT consult- ARF. UCx negative, discontinueantibiotics. DC to ARF today. Follow-up in NS in outpatient clinic. Follow-up with PCP in 1 week. Cristina Chan MD * ZOEY Fallon - 09/28/2023 9:04 AM EST Acute Care Speech Language Pathology Note Received consult for swallow evaluation. However, patient passed [place] Swallow Screening by nursing.Swallow eval by RING CUTTER LATHE OPERATOR will not be completed at this time unless this service notified of change in status or re-consult for swallow eval placed. RING CUTTER LATHE OPERATOR speech/language/cognitive consult received and chart review completed this date. Pt is admittedper chart: had been feeling foggy and lightheaded since 09/22. CTH showed acute R frontal IPH. Outside hospital CT Angiography normal, no spot sign. Head imaging is non-acute (please see MRI imaging for further details.) Per chart review, conversation with medical team, and conversation with patient at bedside , pt feels at cognitive-communication baseline. Endorses feeling of fogginess for past few weeks but states it does not impact his ability to complete iADLs. Partner at bedside in agreement. Therefore, skilled RING CUTTER LATHE OPERATOR evaluation and services are not warranted at this time. RING CUTTER LATHE OPERATOR will complete consult. Discussed with pt who states awareness/indications for follow up in OP setting. Time in: 904 Time out: 922 No charge Cherise Powers MA, [facility]-RING CUTTER LATHE OPERATOR Pager: [phone] License: [email or web address] Email: [email or web address] * Herlinda Smith APRN-REBRANDER - 09/28/2023 8:05 AM EST NEUROVASCULAR STROKE SERVICE Daily Progress Note IDENTIFYING INFORMATION Good De Luna MR# [id number] 09/28/2023 HISTORY OF PRESENT ILLNESS Good De Luna is a 58 y.o. male former smoker (quit 07/2023) with a history of cerebral palsy and hypothyroidism who presented to an OSH on 09/26/2023 because he had been feeling foggy and lightheaded since 09/22. CTH showed acute R frontal IPH. Outside hospital CT Angiography normal, no spot sign.No anticoagulation. Transferred to [facility]. NIHSS 0. LKW 09/22. INTERVAL HISTORY 09/26: MRI completed. 09/27: Check orthostatic vital signs. Urine culture reviewed, discontinue antibiotics. Girlfriend updated at bedside. PHYSICAL EXAM Gen: awake, alert, NAD HEENT: normocephalic, no scalp lesions or tenderness Neck: trachea midline CV: +S1S2, RRR, no m/r/g Lungs: LCTA bilaterally with equal chest rise Abd: soft, nontender, nondistended, +BS x4 quadrants Extrem: Warm and well perfused, no edema Neuro: Oriented x3, CUMMINS x 4, sensation intact and equal bilaterally to light touch CN II - All visual casillas intact CN II/III - PERRLA CN III/IV/ - EOMI CN V - Light touch to face intact in V1-3 CN VII - Facial movement intact and symmetrical bilaterally CN VIII - Hearing intact CN X - Cough present CN XI - muscular movement of shoulders and sternocleidomastoid muscles intact and equal bilaterally CN XII - midline protrusion of tongue MOTOR EXAMINATION: No drift NIHSS 09/28/2023 Provider NIH Stroke Scale NIH Interval (Provider): daily NIH Level of Conciousness (Provider): 0 NIH LOC Questions (Provider): 0 NIH LOC Commands (Provider): 0 NIH Best Gaze (Provider): 0 NIH Visual (Provider): 0 NIH Facial Palsy (Provider): 0 NIH Left Arm Motor (Provider): 0 NIH Right Arm Motor (Provider): 0 NIH Left Leg Motor (Provider): 0 NIH Right Leg Motor (Provider): 0 NIH Limb Ataxia (Provider): 0 NIH Sensory (Provider): 0 NIH Best Language (Provider): 0 NIH Dysarthria (Provider): 0 NIH Extinction and Inattention (Provider): 0 NIH Total Score (Provider): 0 ASSESSMENT AND PLAN Neuro: Developmental venous anomaly, Dizziness: Acute stroke and hemorrhage ruled out with brain MRI. -Outpatient follow up with Neurosurgery in 4-6 weeks -Check orthostatic vital signs -Encourage hydration Ischemic Stroke Core Measures: Not indicated Hypothyroidism, POA: -Continue home synthroid Other problems: Complexity. Obesity Body mass index is 35.78 kg/m . - Follow with PCP for dietary and lifestyle modifications. Hypothyroidism - Continue thyroid replacement Any conditions listed below are present on admission unless otherwise specified. . Disposition: Good De Luna will likely be discharged to [facility] Herlinda Smith APRN-PATTIE 09/28/2023 11:31 AM VITAL SIGNS Temp: [98 F (36.7 C)-98.7 F (37.1 C)] 98.3 F (36.8 C) Pulse (Heart Rate): [57-69] 57 Resp Rate: [18-24] 21 BP: (116-141)/(59-83) 137/68 O2 Sat (%): [94 %-98 %] 96 % Oxygen Therapy: Oxygen Therapy O2 Sat (%): 96 % O2 Device: room air Intake/Output: Intake/Output Summary (Last 24 hours) at 09/28/2023 1131 Last data filed at 09/28/2023 1000 Gross per 24 hour Intake 1090 ml Output 1080 ml Net 10 ml LABS/CULTURES Lab Results Component Value Date WBC 10.01 09/28/2023 HGB 13.4 09/28/2023 HCT 41.1 09/28/2023 PLATELET 218 09/28/2023 MCV 93.0 09/28/2023 Lab Results Component Value Date SODIUM 137 09/28/2023 POTASSIUM 4.2 09/28/2023 CHLORIDE 103 09/28/2023 CO2 28 09/28/2023 BUN 19 09/28/2023 CREATSERUM 1.04 09/28/2023 GLUCOSE 115 (H) 09/28/2023 Lab Results Component Value Date CHOLESTEROL 195 09/26/2023 TRIG 124 09/26/2023 HDL 41 09/26/2023 LDLCALC 129 (H) 09/26/2023 Lab Results Component Value Date HGBA1C 5.5 09/26/2023 Lab Results Component Value Date ALBUMIN 4.4 09/26/2023 , No results found for: CPK, TROP IMAGING/DIAGNOSTIC STUDIES MEDICATIONS B Complex 1 capsule Oral Daily Citalopram 40 mg Oral Daily enoxaparin 40 mg Subcutaneous Daily [START ON 09/29/2023] levothyroxine 175 mcg Oral Before BKF lidocaine 1 patch Transdermal Q24H Pantoprazole 40 mg Oral Daily Senna 8.6 mg Oral Daily Or Senna 8.6 mg Per NG tube Daily * NYDIA Guzman - 09/27/2023 4:13 PM EST Placement Plan Expected Discharge Date: 09/28/2023 Referred Level of Care: IPR Barriers: Bed Availability Current Referrals and Status 1. [facility]-accepted IPR is not expected to have a bed until or Monday. CM updated Pt and the treatment team. ARMEN Martinez Slitter Creaser Slotter Helper [phone] * Miley Le OT - 09/27/2023 11:28 AM EST Referral has been received to evaluate for admission to [facility] for inpatient rehab. Will review and notify of determination via source of referral. [facility] to complete chart review when therapy evaluations available. Thank you, ILIA Paulino, OTR/L, CBIS Rehab Volunteer Coordinator [address] [phone] / [email or web address] * Herlinda Smith APRN-REBRANDER - 09/27/2023 10:31 AM EST NEUROVASCULAR STROKE SERVICE Daily Progress Note IDENTIFYING INFORMATION Good De Luna MR# [id number] 09/27/2023 HISTORY OF PRESENT ILLNESS Good De Luna is a 58 y.o. male former smoker (quit 07/2023) with a history of cerebral palsy and hypothyroidism who presented to an OSH on 09/26/2023 because he had been feeling foggy and lightheaded since 09/22. CTH showed acute R frontal IPH. Outside hospital CT Angiography normal, no spot sign.No anticoagulation. Transferred to [facility]. NIHSS 0. LKW 09/22. INTERVAL HISTORY 09/26: MRI completed. PHYSICAL EXAM Gen: awake, alert, NAD HEENT: normocephalic, no scalp lesions or tenderness Neck: trachea midline CV: +S1S2, RRR, no m/r/g Lungs: LCTA bilaterally with equal chest rise Abd: soft, nontender, nondistended, +BS x4 quadrants Extrem: Warm and well perfused, no edema Neuro: Oriented x3, CUMMINS x 4, sensation intact and equal bilaterally to light touch CN II - All visual casillas intact CN II/III - PERRLA CN III/IV/ - EOMI CN V - Light touch to face intact in V1-3 CN VII - Facial movement intact and symmetrical bilaterally CN VIII - Hearing intact CN X - Cough present CN XI - muscular movement of shoulders and sternocleidomastoid muscles intact and equal bilaterally CN XII - midline protrusion of tongue MOTOR EXAMINATION: No drift NIHSS 09/27/2023 Provider NIH Stroke Scale NIH Interval (Provider): daily NIH Level of Conciousness (Provider): 0 NIH LOC Questions (Provider): 0 NIH LOC Commands (Provider): 0 NIH Best Gaze (Provider): 0 NIH Visual (Provider): 0 NIH Facial Palsy (Provider): 0 NIH Left Arm Motor (Provider): 0 NIH Right Arm Motor (Provider): 0 NIH Left Leg Motor (Provider): 0 NIH Right Leg Motor (Provider): 0 NIH Limb Ataxia (Provider): 0 NIH Sensory (Provider): 0 NIH Best Language (Provider): 0 NIH Dysarthria (Provider): 0 NIH Extinction and Inattention (Provider): 0 NIH Total Score (Provider): 0 ASSESSMENT AND PLAN Neuro: Developmental venous anomaly: Acute stroke and hemorrhage ruled out with brain MRI. -Outpatient follow up with Neurosurgery in 4-6 weeks Ischemic Stroke Core Measures: Not indicated Likely UTI: Cultures pending -Keflex for 7 days -Follow up cultures Hypothyroidism, POA: -Continue home synthroid Other problems: Complexity. Obesity Body mass index is 35.78 kg/m . - Follow with PCP for dietary and lifestyle modifications. Hypothyroidism - Continue thyroid replacement Any conditions listed below are present on admission unless otherwise specified. . Disposition: Good De Luna will likely be discharged to [facility] MACHELLE Jain 09/27/2023 10:36 AM VITAL SIGNS Temp: [97.7 F (36.5 C)-98.2 F (36.8 C)] 97.7 F (36.5 C) Pulse (Heart Rate): [51-69] 69 Resp Rate: [14-25] 15 BP: (105-162)/(60-82) 119/68 O2 Sat (%): [93 %-99 %] 97 % Weight: [97.5 kg (215 lb)-103.9 kg (229 lb 1.6 oz)] 97.5 kg (215 lb) Oxygen Therapy: Oxygen Therapy O2 Sat (%): 97 % O2 Device: room air Oxygen Delivery/Consumption Hemodynamics BSA (Calculated - sq m): 2.04 m2 Intake/Output: No intake or output data in the 24 hours ending 09/27/23 1036 LABS/CULTURES Lab Results Component Value Date WBC 11.64 (H) 09/27/2023 HGB 15.3 09/27/2023 HCT 46.5 09/27/2023 PLATELET 254 09/27/2023 MCV 91.7 09/27/2023 Lab Results Component Value Date SODIUM 138 09/27/2023 POTASSIUM 4.5 09/27/2023 CHLORIDE 102 09/27/2023 CO2 26 09/27/2023 BUN 18 09/27/2023 CREATSERUM 0.93 09/27/2023 GLUCOSE 96 09/27/2023 Lab Results Component Value Date CHOLESTEROL 195 09/26/2023 TRIG 124 09/26/2023 HDL 41 09/26/2023 LDLCALC 129 (H) 09/26/2023 Lab Results Component Value Date HGBA1C 5.5 09/26/2023 Lab Results Component Value Date ALBUMIN 4.4 09/26/2023 , No results found for: CPK, TROP IMAGING/DIAGNOSTIC STUDIES MEDICATIONS Acetaminophen 975 mg Oral Once B Complex 1 capsule Oral Daily cephALEXin 500 mg Oral Q12H Citalopram 40 mg Oral Daily enoxaparin 40 mg Subcutaneous Daily levothyroxine 175 mcg Oral Daily lidocaine 1 patch Transdermal Q24H Pantoprazole 40 mg Oral Daily Senna 8.6 mg Oral Daily Or Senna 8.6 mg Per NG tube Daily * Connie Jordan, PT - 09/27/2023 10:25 AM EST Acute Physical Therapy Evaluation Prior to Admission [facility] score(s): PRIOR LEVEL AM-PAC Mobility Raw Score: 24 Current AM-PAC score(s): CURRENT AM-PAC Mobility Raw Score: 18 Based on the above AM-PAC score(s) and PT clinical judgment, patient is a good candidate for discharge to Inpatient Rehab Facility Pt highly motivated to complete therapy Supporting Factors (would benefit from skilled therapy services): Patient status is anticipated to be appropriate to tolerate inpatient rehab therapy requirements at time of discharge from acute care, Impaired functional status, Decreased strength, Impaired balance, Decreased endurance necessitating skilled therapy services, but able to tolerate therapy requirements for inpatient rehab, Fall risk, Recent decline in functional mobility Mobility equipment available at home: 2 wheeled walker (walking stick) ADL equipment available at home: shower chair Equipment needed for discharge: none Current therapy frequency recommendation in acute: Therapy Frequency: 5 times a week Activity Recommendations for outside of rehab session: staff assist with 2WW, gait belt to ambulateshort distances in room, OOBTC for meals with staff Precautions and Weightbearing Status: Existing Precautions/Restrictions: fall (chair alarm activated) Telemetry Patient Safety Communication Prior to Visit: Nursing, Physician Subjective: I am feeling tired Pain: General Pain Documentation (Adult, OB, Peds) Presence of Pain: complains of pain/discomfort Pain Location: back DVPRS (Defense and Veterans Pain Rating Scale) DVPRS: Rest: 6- moderate pain DVPRS: Activity: 4- mild pain Home Setting Residence: Apartment Lives With: alone First floor setup: bedroom, tub shower Number of stairs to enter home: 2 Number of stairs in home: 0 Mobility Equipment Available: 2 wheeled walker (walking stick) ADL Equipment Available: shower chair Home Environment Details: Pt reports daughter stops by to assist Previous Level of Function Prior level ADL Overview: Independent with all ADLs Bed Mobility/Transfers: independent Ambulation Skills: independent Assistive Device: 2 wheeled walker (walking stick) Level of Ambulation: community Prior Level of Function Details: Pt without recent history of falls Objective/Observation: Vitals/Vitals Responses to Treatment: Pt BP assessed during session, WFL. No adverse reaction to therapy O2 Device: room air Cognition Overall Cognitive Status: Within Functional Limits Arousal/Alertness: Appropriate responses to stimuli Following Commands: Follows all commands and directions without difficulty Safety Judgment: Good awareness of safety precautions Awareness of Errors: Good awareness of errors made Deficits: Fully aware of deficits Memory: Appears intact Problem Solving: Able to problem solve independently Cognition Comments: Pt pleasant, motivated to complete therapy Vision Screen Currently wearing corrective lenses: Progressive lenses Speech Speech: no gross deficits noted Hearing Hearing: no gross deficits noted Extremity Assessments: RUE Assessment RUE Assessment: Within Functional Limits LUE Assessment LUE Assessment: Within Functional Limits RLE Assessment RLE Assessment: Within Functional Limits Right LE Assessment Details: grossly 4/5 MMT LLE Assessment LLE Assessment: Within Functional Limits Left LE Assessment Details: grossly 4/5 MMT Sensation Overall Sensation: Intact Mobility Assessment: Supine to Sit Mobility Ponder Level: Supine->Sit: stand-by assist Skilled Rationale: Positioning, Sequencing, Verbal cues, Cues for increased safety Skilled Intervention/Details: Supine->Sit: stand by assist, cues for logroll due to back pain Sit to Supine Mobility Ponder Level: Sit->Supine: minimum assist (75% patient effort) Skilled Rationale: Sequencing, Positioning, Cues for increased safety, Technique of activity, Verbal cues, Tactile cues Skilled Intervention/Details: Sit->Supine: Pt requires assist to at BLE to bring to midline in supine Balance: Sitting Balance Static Sitting-Level of Assistance: Standby Dynamic Sitting-Level of Assistance: Standby Skilled Rationale: Positioning, Sequencing, Verbal cues Sitting Balance Skilled Intervention/Details: Cues for proper positioning with feet flat on fllor for balance Standing Balance Static Standing-Level of Assistance: Minimum assistance Dynamic Standing-Level of Assistance: Minimum assistance Standing-Balance Support: Gait belt, 2 wheeled walker Skilled Rationale: Positioning, Sequencing, Tactile cues, Verbal cues, Cues for increased safety, Technique of activity Standing Balance Skilled Intervention/Details: Pt initially min A x2 hand held assist, progressed to min A x1 with 2WW with increased time in standing Pt requires min A from therapist for balance correction due to initial LOB in standing. Transfer Assessment: Sit to Stand Transfer Ponder Level: Sit->Stand: minimum assist (75% patient effort) Assistive Device: Sit->Stand: gait belt Skilled Rationale: Positioning, Sequencing, Verbal cues, Cues for increased safety, Technique of activity Skilled Intervention/Details: Sit->Stand: x2 from EOB, x1 from recliner, cues for safety throughout, requires cues to push from recliner instead of pulling on walker for support. Stand to Sit Transfer Ponder Level: Stand->Sit: minimum assist (75% patient effort) Assistive Device: Stand->Sit: gait belt Skilled Rationale: Positioning, Hand placement, Sequencing, Verbal cues, Cues for increased safety Skilled Intervention/Details: Stand->Sit: Pt requires assist and cues for proximity of chair andcontrolled descent Gait/Functional Mobility: Gait Assessment Ponder Level: Gait: minimum assist (75% patient effort) Physical Assist: Gait: chair follow Assistive Device: Gait: gait belt, 2 wheeled walker Ambulation Distance (Feet): 50 Gait Deviations Identified: decreased gait speed, decreased kirsten, narrow base of support, flexedposture Gait Skilled Rationale: verbal, upright posture, increase foot clearance Skilled Intervention/Details - Gait: 2 bouts of gait, initial gait bout min A x2 hand in hand, pt requests to use 2WW as he owns one and uses PRN at home. Initial bout 10', pt requires hand held assist assist and seated break for recovery. Second gait bout pt completes 50' before requiring seated rest break, rates fatigue 7/10 RPE. Pt requires cues forupright posture and foot clearance during bouts. Stairs: Outcome Score(s): CURRENT [facility] Basic Mobility Inpatient Short Form Turning over in bed: 4 - No Assistance Sitting/standing from chair: 3 - A Little Assistance Moving from lying on back to sittin - A Little Assistance Moving to and from bed to chair: 3 - A Little Assistance Walk in hospital room: 3 - A Little Assistance Climbing 3-5 steps with a railin - A Lot of Assistance CURRENT [facility] Mobility Raw Score: 18 CURRENT [facility] Mobility Functional Limitation/Modifier: 46.58% Currently Impaired in Basic Mobility- CK Interventions: Assessment & Plan: Patient was admitted for OSH on 09/26/2023 because he had been feeling foggy and lightheaded since 09/22. CTH showed acute R frontal IPH. Outside hospital CT Angiography normal, no spot sign.No anticoagulation. Transferred to [facility] and seen for therapy evaluation related to assess Pt functional mobility, ROM, strength, as they relate to safety, independence with functional mobility and appropriate discharge destination Exam findings include impairments in: Strength, ROM (range of motion), Balance, Coordination, Sensation, Pain, Transfers, Gait/Locomotion, Cognition/Arousal/Attention. These impairments contribute tofunctional limitations including Decreased ambulation distance/endurance, Decreased functional mobility. Current clinical presentation is Evolving - changing/inconsistent clinical characteristics (Moderate). Patient history factors impacting Plan Of Care include past medical history. Patient will benefit from skilled physical therapy to address these impairments, functional limitations, and participation restrictions and has good rehab potential to achieve therapy goals. Planned Therapy Interventions: balance training, bed mobility training, functional activity tolerance, gait training, transfer training, strengthening, postural re-education, neuromuscular re-education Patient Instruction/Education this session: Learners: Patient Education provided: Role of this discipline, Plan of care, Safety Teaching method: Teach back, Verbal Education/Instruction Learner response: Applies knowledge Learning preferences: Auditory, Kinesthetic, Reading/writing, Visual Learning considerations: No barriers/ready to learn Stroke education: Role of rehabilitation discipline Plan for next session: progress gait, balance interventions Acute PT Goals Plan of Care by Connie Jordan PT at 09/27/2023 10:25 AM Version 1 of 1 Problem: PT - General Goals Goal: Supine <-> Sit Transfers - Patient will perform supine to/from sit transfers with independence and without use of hospital bed features in order to improve functional mobility and safety. Outcome: Ongoing Goal: Sit <-> Stand Transfers - Patient will perform sit to/from stand transfers with modified independence and least restrictive device in order to improve functional mobility and safety. Outcome: Ongoing Goal: Ambulation - Patient will ambulate 150+ feet with modified independence and least restrictivedevice to improve ability to safely navigate home and community. Outcome: Ongoing Goal: Stairs - Patient will ascend/descend 3 stairs with modified independence, least restrictive device, and single railing(s) to improve ability to safely navigate home and community. Outcome: Ongoing PT treatment consisted of the following to progress towards the above goal(s): PT Evaluation and Treatment Time PT Evaluation (Moderate) Time Entry: 28 Evaluating Therapist: Connie Jordan PT Additional Details: PT Co-Eval/Treatment Information Co-evaluation/co-treatment performed?: Yes, simultaneous billable skilled care was necessary due tomedical complexity and functional deficits Other discipline: OT Rationale for need to co-eval/treat: cognitive issues, postural control Co-treatment goal focus: balance, mobility, transfer Evaluation Complexity Components History: Moderate (1-2 personal factors and/or comorbidities) Body Systems Review: Moderate (Addressing a total of 3 or more elements) Clinical Presentation: Evolving - changing/inconsistent clinical characteristics (Moderate) Clinical Decision Making: Moderate Time In: 956 Time Out: 1025 Total Visit Time: 28 minutes Total Treatment Time (skilled, billable minutes): 28 minutes PPE used during patient interaction: facemask, gloves Patient location at end of session: RN aware, lines intact, bed with head of bed elevated Alarms on at end of session: bed alarm, RN aware (verbal handoff with RN at session end) Needs in reach. Upon discontinuation of Acute Care Physical Therapy Services or patient discharge from the hospitalthis note represents the current Physical Therapy Discharge Summary. * NYDIA Guzman - 09/27/2023 10:05 AM EST Reason for Consult: Discharge Planning Level(s) of Care Discussed: IPR Patient and/or Oil Mixer's Preferred Geographic Area for Discharge: [id number] Patient and/or Oil Mixer's Preference for Providers to Include? [facility], [facility] and [facility] Patient and/or Oil Mixer's Preference for Providers to Exclude? N/A Patient and/or Oil Mixer's Discussion: Discussed referral process with the patient and/or customer development representative. Patient and/or customer development representative isagreeable to have placement referral initiated. Pt is medically ready for discharge. [facility] does not have any beds. Pt's [facility] is reviewing. Pt's third choice [facility] is able to accept. ARMEN Martinez Slitter Creaser Slotter Helper [phone] 09/27/23, 1449 CM called [facility] IPR for an update on the status of the referral. Admissions states that they are still reviewing the referral and should have an answer on whether or not they can accept bytomorrow morning. ARMEN Martinez Slitter Creaser Slotter Helper [phone] * NYDIA Guzman - 09/27/2023 10:00 AM EST Discharge Planning Patient Assessment Admission Assessment Patient Assessment Completed: Initial Anticipated discharge disposition: Inpatient Rehab Facility Reason for Admission: Stroke work-up Is the patient able to participate in the assessment?: Yes Information source: Patient, Review of Medical Record Information Source Name/Contact: Good De LunaZnlpsd-[phone] Demographics Verified and Updated: Yes Has the patient been admitted to any hospital in the last 30 days?: Transferred From Outside Hospital Advanced Care Planning Has the patient completed Advance Directives?: Not Completed Referral to Social Work for Advance Care Planning? : Patient Declines Legal Next of Kin Does the patient have a Guardian?: No Spouse: No Adult Child(gavin), List All Adult Children: Yes Name and Contact information: Barbaramadyson De LunaSibyln-[phone] Would you like to add additional adult children?: Yes Name and Contact information: Cee De LunaHozqnw-[phone] Referral to Social Work to Identify Legal Next of Kin?: No Reviewed and Updated in Demographics? : Yes Outpatient Providers Does patient have a primary care physician? : Yes When was the patient's last PCP visit?: > 30 days Does the patient follow any specialists?: Yes Reviewed and updated Care Team?: Yes Patient Care Team: Mathew Cobian MD as PCP - General (Family Medicine) Environment/Caregivers Is the patient from a facility or intermediate?: No Patient lives with: Alone Living Environment: Apartment How many steps does the patient have to navigate to enter or inside the home? : 2 Does the patient have a first floor set-up with bed and bathroom?: Yes Patient-identified caregiver/support network: Family Who does the patient identify as a teachable caregiver(s)?: Significant Other, Child(gavin) - Independent Services Does the patient use a home health or hospice agency?: No Current with dialysis?: No Does the patient use any community programs or services?: Yes Select Program, Services, Resources : [facility] (Pt's daughter Barbara is Pt's aid 20 hours per week. Pt's CM is Adrianna Pineda. Her phone number is [phone].) Does the patient have a Ocean Export Coordinator or Industrial Diamond Polisher?: Yes Ocean Export Coordinator or Industrial Diamond Polisher Agency, Name and Contact: Adrianna LeonardEmmgmxg-[phone] Does patient use DME? : walker, wheelchair, shower seat Would you like to add additional DME providers?: No Does the patient use oxygen?: No Does patient use medical supplies? : none Anticipated Changes Related to Illness/Injury? : Yes Inability to care for self?: No Initial ADLs Prior to Arrival What is the patient's baseline physical functioning prior to this acute illness?: assist with ADLs What is the patient's baseline cognitive functioning prior to this acute illness?: independent Is the patient's baseline functioning changed by this acute illness? : Yes Changes observed : Physical Concerns with patient being able to care for themselves at home? : No Are there therapy or specialists consults?: Yes Select consult type: PT, OT, RING CUTTER LATHE OPERATOR Does the patient's home require any home modifications for discharge? : No CM to recommend therapy or other consults? : No Medication Management Does the patient have prescription insurance coverage? : Yes Is the patient on Anticoagulation? : No [id number] [place] [address] - [address] [facility] [address] [facility] [place] [id number] Manager Agricultural Does the patient or customer development representative express financial concerns? : No Employed?: Disabled Coping/Stress Concerns about patient s coping and stress?: No Values and Beliefs Cultural or taoism practices that may impact discharge planning and/or medical care?: No Initial Discharge Planning Anticipated discharge disposition: Inpatient Rehab Facility Transportation Available for Discharge: Ambulance, Family or Friend Anticipated DME: none Anticipated Services at Discharge: Physical Therapy, Occupational Therapy, Outpatient follow up Patient Assessment Completed: Initial Expected Discharge Date: 09/27/2023 Discharge Planning Summary Recommendations are for IPR. Case Management Plan CM completed initial assessment with Pt at bedside. Pt is agreeable to discharging to [facility]. Pt's [address] [place] [address] has no beds available until next week. Awaiting review of referral by Pt's2nd and 3rd choices. [facility]. Pt is medically ready for discharge. ARMEN Martinez Slitter Creaser Slotter Helper [phone] * Nguyễn Watson - 09/27/2023 9:57 AM EST Acute Occupational Therapy Evaluation Prior to Admission AM-PAC Score: PRIOR LEVEL AM-PAC Activity Raw Score: 23 Current AM-PAC score(s): CURRENT AM-PAC Mobility Raw Score: 18 CURRENT AM-PAC Activity Raw Score: 19 Based on the above AM-PAC score(s) and OT clinical judgment, discharge destination recommendation is: Inpatient Rehab Facility Supporting Factors (would benefit from skilled therapy services): Patient status is anticipated to be appropriate to tolerate inpatient rehab therapy requirements at time of discharge from acute care, Impaired balance, Decreased endurance, Assistance needed with functional mobility Mobility equipment available at home: 2 wheeled walker (walking stick) ADL equipment available at home: shower chair Equipment recommendations for discharge: to be determined Current therapy frequency recommendation(s) in acute: 5 times a week Activity Recommendations for outside of rehab session: x 1 person assist with gait belt and 2WW Precautions and Weightbearing Status: Telemetry Patient Safety Communication Prior to Visit: Nursing, Physician Subjective: Patient supine upon arrival and agreeable to OOB activity. Pain: General Pain Documentation (Adult, OB, Peds) Presence of Pain: complains of pain/discomfort Pain Location: back DVPRS (Defense and Veterans Pain Rating Scale) DVPRS: Rest: 6- moderate pain DVPRS: Activity: 4- mild pain Home Setting Residence: Apartment Lives With: alone First floor setup: bedroom, tub shower Number of stairs to enter home: 2 Number of stairs in home: 0 Mobility Equipment Available: 2 wheeled walker (walking stick) ADL Equipment Available: shower chair Home Environment Details: Pt reports daughter stops by to assist. She assists with IADLs including cooking, cleaning, and laundry. She comes 5x a week for 4 hours at a time per patient report. Previous Level of Function Prior level ADL Overview: Independent with all ADLs Bed Mobility/Transfers: independent Ambulation Skills: independent Assistive Device: 2 wheeled walker (walking stick) Level of Ambulation: community Prior Level of Function Details: Pt without recent history of falls IADL History IADLs: needs assist Primary Language: Brazilian Home Management Skills: needs assist Medication Management: needs assist Objective/Observation: Vitals/Vitals Responses to Treatment: VSS O2 Device: room air Vision Screen Currently wearing corrective lenses: Progressive lenses Speech Speech: no gross deficits noted Successful Methods (Communication Strategies): verbal speech Hearing Hearing: no gross deficits noted Cognition Overall Cognitive Status: Within Functional Limits Arousal/Alertness: Appropriate responses to stimuli Following Commands: Follows all commands and directions without difficulty Safety Judgment: Good awareness of safety precautions Awareness of Errors: Good awareness of errors made Deficits: Fully aware of deficits Attention Span: Appears intact Memory: Appears intact Problem Solving: Able to problem solve independently Cognition Comments: Patient is motivated to work with therapy. Aware of deficits. ADLs: ADL Anticipated Performance (ADLs not directly observed this session): Grooming, Bathing, UE Dressing, LE Dressing, Toileting Eating Assistance: Independent Grooming Assistance: Minimal Bathing Assistance: Minimal UE Dressing Assistance: Minimal LE Dressing Assistance: Minimal Toilet Assistance: Minimal Extremity Assessments: RUE Assessment RUE Assessment: Within Functional Limits LUE Assessment LUE Assessment: Within Functional Limits Balance: Sitting Balance Static Sitting-Level of Assistance: Standby Dynamic Sitting-Level of Assistance: Standby Skilled Rationale: Positioning, Sequencing, Verbal cues Sitting Balance Skilled Intervention/Details: Cues for positioning and anterior weight shift EOB. Standing Balance Static Standing-Level of Assistance: Minimum assistance Dynamic Standing-Level of Assistance: Minimum assistance Standing-Balance Support: Gait belt, 2 wheeled walker Skilled Rationale: Positioning, Sequencing, Verbal cues, Technique of activity, Cues for increased safety Standing Balance Skilled Intervention/Details: Completed functional mobility with ALMOND SORTER MIN Ax2 and 2WW with MIN Ax1 Neuro: Sensation Overall Sensation: Intact Gross Coordination Gross Coordination: bilat UE intact Fine Motor Coordination Additional Documentation: Yes Fine Motor Coordination Left Hand Thumb/Finger Opposition Skills: normal performance Right Hand Thumb/Finger Opposition Skills: normal performance Skin and Edema: Skin Integrity Skin Integrity Description: WFL Edema Edema: none noted Mobility Assessment: Supine to Sit Mobility Ponder Level: Supine->Sit: stand-by assist Bed Features/Set-up: Supine->Sit: Head of bed elevated Skilled Rationale: Positioning, Sequencing, Verbal cues Skilled Intervention/Details: Supine->Sit: Educated on log roll due to back pain Sit to Supine Mobility Ponder Level: Sit->Supine: minimum assist (75% patient effort) Bed Features/Set-up: Sit->Supine: Flat, Use of bed rail Skilled Rationale: Positioning, Sequencing, Verbal cues, Tactile cues Skilled Intervention/Details: Sit->Supine: Required assist for BLE's and educated on log roll technique. Transfer Assessment: Sit to Stand Transfer Ponder Level: Sit->Stand: minimum assist (75% patient effort) Assistive Device: Sit->Stand: gait belt Skilled Rationale: Positioning, Sequencing, Verbal cues, Cues for increased safety, Technique of activity Skilled Intervention/Details: Sit->Stand: x2 from EOB, x1 from armed chair Stand to Sit Transfer Ponder Level: Stand->Sit: minimum assist (75% patient effort) Assistive Device: Stand->Sit: gait belt Skilled Rationale: Positioning, Hand placement, Sequencing, Verbal cues, Cues for increased safety Skilled Intervention/Details: Stand->Sit: Cues for controlled descent Functional Mobility: Functional Mobility Ponder Level: Functional Mobility/Gait: minimum assist (75% patient effort) Physical Assist: Functional Mobility/Gait: chair follow (1 person) Assistive Device: Functional Mobility/Gait: gait belt (2 trials: 1 ALMOND SORTER, 1 2WW) Functional Mobility Distance: Distance needed for common household mobility, Distance needed to access restroom Ambulation Distance (Feet): 50 Functional Mobility Deficits: Balance, Problem solving, Activity tolerance Functional Mobility Skilled Rationale: Verbal cues, Cues for increased safety Skilled Intervention/Details - Functional Mobility/Gait: Completed functional mobility two trials. Completed first MIN A x2 HHS and completed second trial with 2WW with MIN Ax1. Cues for upright posture and gaze. Wheelchair Assessment Patient currently uses wheelchair?: No CURRENT [facility] Daily Activity Inpatient Short Form Putting on/Taking Off Lower Body Clothin - A Little Assistance Bathin - A Little Assistance Toiletin - A Little Assistance Putting on/Taking Off Upper Body Clothin - A Little Assistance Groomin - A Little Assistance Eatin - No Assistance CURRENT -[facility] Activity Raw Score: 19 CURRENT -[facility] Activity Functional Limitation/Modifier: 42.80% Currently Impaired in Daily Activity- CK Assessment & Plan: Patient is a 58 y.o with PMH of CP and hypothyroidism and seen for therapy evaluation related to deficits in endurance, strength, and balance impacting occupational performance. Exam findings include impairments in: balance, transfers, pain, endurance, strength. These impairments contribute to occupational performance limitations including bathing, dressing, grooming, toileting, functional mobility, ADL transfers. The following factors impact the plan of care: none Patient will benefit from skilled occupational therapy to address these impairments, occupational performance limitations, and participation restrictions. Patient's rehab potential is: good. Planned Therapy Interventions (OT Eval): ADL retraining, balance training, bed mobility training, functional activity tolerance, transfer training Patient Instruction/Education this session: Learners: Patient Education provided: Discharge recommendations, Safety, Role of this discipline Teaching method: Verbal Education/Instruction Learner response: Applies knowledge Learning preferences: Visual, Auditory Learning considerations: No barriers/ready to learn Stroke education: Role of rehabilitation discipline Plan for next session: Enhance activity tolerance and dynamic balance with ADLs. Acute OT Goals Plan of Care by Bridget Jones OT at 09/27/2023 9:57 AM Version 1 of 1 Problem: OT - ADLs Goal: Grooming - Patient will complete grooming in standing with modified independence and supervision for improved ability to safely complete ADLs. Outcome: Ongoing Goal: Bathing - Patient will perform full body bathing/dressing routine with modified independence and supervision while seated for improved ability to complete self-care activities Outcome: Ongoing Problem: OT - Endurance Goal: Endurance Functional Task Standing - Patient will engage in standing functional task for 15 minutes with standby assistance to improve activity tolerance necessary for safe ADL completion at recommended discharge destination. Outcome: Ongoing Problem: OT - Strength/ROM Goal: Strength/ROM ADL Participation - Patient will participate in UE exercise program with supervision to prevent deconditioning while in hospital and to max UE ROM/Coordination/strength for ADLs. Outcome: Ongoing Problem: OT - Other Goal: Energy Conservation with ADL's - Patient will independently utilize at least 2 energy conservation/pacing strategies during ADL completion to promote success and safety during daily routine. Outcome: Ongoing OT treatment consisted of the following to work and progress towards the above goal(s): OT Evaluation and Treatment Time OT Evaluation (Moderate) Time Entry: 28 Evaluating Therapist: Nguyễn Watson Occupational Therapy Student Additional Details: OT Co-Eval/Treatment Information Co-evaluation/co-treatment performed?: Yes, simultaneous billable skilled care was necessary due tomedical complexity and functional deficits Other discipline: PT Rationale for need to co-eval/treat: (initial assessment of mobility) Co-treatment goal focus: balance, mobility, transfer OT Evaluation Complexity Occupational Profile and Client History: Moderate - expanded history Assessment of Occupational Performance: Moderate (3-5 performance deficits) Clinical Decision/Performance Deficits: Moderate (detailed assessments w/several treatment options) Time In: 09 Time Out: 1025 Total Visit Time: 28 minutes Total Treatment Time (skilled, billable minutes): 28 minutes PPE used during patient interaction: facemask, gloves Patient location at end of session: bed with head of bed elevated Alarms on at end of session: bed alarm, RN aware Needs in reach. Upon discontinuation of Acute Care Occupational Therapy Services or patient discharge from the hospital this note represents the current Occupational Therapy Discharge Summary. Associated attestation - Bridget Jones OT - 09/27/2023 1:08 PM EST I, Bridget Jones OT, provided direct guidance in the room during this patient care session. I attest that all documentation reflects accurate skilled clinical decisions and judgements. * Gypsy Robert RP - 09/26/2023 9:47 PM EST Department of Pharmacy Emergency Department Stroke Alert Response Note Patient Name: Good De Luna Room/Bed: E036/E036 A Pharmacist responded to the stroke alert. The patient was determined to be having a hemorrhagic stroke. The IHIS order set ED: Confirmed Stroke/ICH - Secondary was placed by Dr. Malik for ongoing care. Pertinent medications received prior to arrival: none The patient is NOT on any anticoagulant or antiplatelet medications. After discussion with neurology, SBP goal is to be between 120 and 140 mmHg. SBP is currently at goal and no interventions were required. Verified orders for PRN anti-hypertensives with correct bloodpressure goal (SBP 120-140 mmHg) have been ordered for ongoing care.. Please feel free to contact me with any further questions. Name: Gypsy Robert RPH Phone: [phone] Date/Time: 09/26/2023 9:47 PM documented in this [facility]03-08-2024 Plan of care note* Plan of Care - Laura Gary OT - 09/29/2023 8:11 AM EST Problem: OT - ADLs Goal: Grooming - Patient will complete grooming in standing with modified independence and supervision for improved ability to safely complete ADLs. Outcome: Progressing Problem: OT - Endurance Goal: Endurance Functional Task Standing - Patient will engage in standing functional task for 15 minutes with standby assistance to improve activity tolerance necessary for safe ADL completion at recommended discharge destination. Outcome: Progressing Problem: OT - Other Goal: Energy Conservation with ADL's - Patient will independently utilize at least 2 energy conservation/pacing strategies during ADL completion to promote success and safety during daily routine. Outcome: Progressing Problem: OT - ADLs Goal: Bathing - Patient will perform full body bathing/dressing routine with modified independence and supervision while seated for improved ability to complete self-care activities Outcome: Ongoing Problem: OT - Strength/ROM Goal: Strength/ROM ADL Participation - Patient will participate in UE exercise program with supervision to prevent deconditioning while in hospital and to max UE ROM/Coordination/strength for ADLs. Outcome: Ongoing [facility]03-08-2024 Hospital course Narrative* Adam Pulido, PHYSICIAN UNDERWRITER-REBRANDER - 09/29/2023 8:09 AM EST Discharge Summary Name: Good De Luna Age: 58 y.o. Birthday: 1965 Admit Date: 09/26/2023 9:41 PM Discharge Date: 09/29/23 Discharge Time: 1300 Discharge Unit: 10 [facility] Admission Information Admitting Physician: Cristina Chan MD Discharge Information Discharge Physician: Dr. Cristina Chan Problem List Active Hospital Problems Diagnosis Developmental venous anomaly Resolved Hospital Problems No resolved problems to display. Brief Summary of Hospital Course for Discharge Summary: Dear Providers, We recently had the pleasure of taking care of Good De Luna at [facility]. As you well know Good De Luna is a 58 y.o. male former smoker (quit 07/2023) with a history of cerebral palsy and hypothyroidism who presented to an OSH on 09/26/2023 because he had been feeling foggy and lightheaded since 09/22. CTH showed acute R frontal IPH. Outside hospital CT Angiography normal, no spot sign.No anticoagulation. Transferred to [facility]. NIHSS 0. His work up including a brain MRI confirmed a developmental venous anomaly and no acute hemorrhage. He was evaluated by OT, PT and speech therapy. He is being discharged to an [facility] in a stable condition. This discharge plan has been explained to the patient and his girlfriend. Diagnosis: Developmental venous anomaly, Pre-syncope Management plan at discharge: -Continue home medications including synthroid, omeprazole and citalopram -Therapies at an IPR Follow up plan after discharge: -Follow up with Neurosurgery 4-6 weeks of discharge -Follow up with PCP within 2 weeks of discharge Physical exam on the day of discharge: Gen: awake, alert, NAD HEENT: normocephalic, no scalp lesions or tenderness Neck: trachea midline CV: +S1S2, RRR, no m/r/g Lungs: LCTA bilaterally with equal chest rise Abd: soft, nontender, nondistended, +BS x4 quadrants Extrem: Warm and well perfused, no edema Neuro: Oriented x4, CUMMINS x 4, sensation intact and equal bilaterally to light touch CN II - All visual casillas intact CN II/III - PERRLA CN III/IV/ - EOMI CN V - Light touch to face intact in V1-3 CN VII - Facial movement intact and symmetrical bilaterally CN VIII - Hearing intact CN X - Cough present CN XI - muscular movement of shoulders and sternocleidomastoid muscles intact and equal bilaterally CN XII - midline protrusion of tongue MOTOR EXAMINATION: No drift Brief Summary of Consults for Discharge Summary: Brief Summary of Procedures and Imaging for Discharge Summary: Summary of last selected lab results and date obtained: Lab Results Component Value Date WBC 10.01 09/28/2023 HGB 13.4 09/28/2023 HCT 41.1 09/28/2023 PLATELET 218 09/28/2023 MCV 93.0 09/28/2023 Lab Results Component Value Date SODIUM 137 09/28/2023 POTASSIUM 4.2 09/28/2023 CHLORIDE 103 09/28/2023 CO2 28 09/28/2023 BUN 19 09/28/2023 CREATSERUM 1.04 09/28/2023 GLUCOSE 107 (H) 09/28/2023 Lab Results Component Value Date ALT 30 09/26/2023 AST 24 09/26/2023 ALKPHOS 77 09/26/2023 BILITOTAL 0.6 09/26/2023 BILIDIRECT 0.1 09/26/2023 Brief Summary of Labs for Discharge Summary: Discharge Orders AMB REFERRAL TO NEUROSURGERY Current Outpatient Meds: Medication List for when you go home CONTINUE taking these medications Morning Afternoon Evening Bedtime As Needed Acetaminophen 325 MG tablet Take 1 tablet by mouth every 4 hours. Commonly known as: TYLENOL Last time this was given: 650 mg on September 29, 2023 9:37 AM B Complex Vitamins CAPS Take 1 capsule by mouth daily. Last time this was given: 1 capsule on September 29, 2023 8:39 AM Citalopram 10 MG TABS Take 4 tablets by mouth daily. Commonly known as: CELEXA Last time this was given: 40 mg on September 29, 2023 8:38 AM Ibuprofen 400 MG TABS Take 1 tablet by mouth every 6 hours as needed for Mild Pain. Commonly known as: MOTRIN levothyroxine 175 MCG TABS Take 1 tablet by mouth daily. Commonly known as: SYNTHROID Last time this was given: 175 mcg on September 29, 2023 5:22 AM Meclizine 25 MG TABS Take 1 tablet by mouth Every 8 hours as needed for Dizziness. Commonly known as: ANTIVERT omeprazole [address] capsule Take 1 capsule by mouth daily. Commonly known as: PRILOSEC Medication Instructions: Know your medicines Make sure you know why you are taking each medicine. Make a master list of all your medicines. Write down the medicine names and doctors' names. Includedoses and side effects too. And write down why you take each medicine. Include all prescription [id number]-[id number] medicines, vitamins, and supplements. Keep this list up to date. Take a copy to each doctor visit. Know when you will run out of each medicine. Ask your pharmacist if there are ways the drugstore can remind you to refill your medicines so you do not run out. Write refill reminders on your calendar. Don't wait until you have a few pills left. Ask your pharmacist to plan your refills so that you can brain picker all your medicines at the same time. This can mean fewer trips to the drugstore. If we have prescribed you a new medication during your stay, please contact with your primary physician for refills Follow-up: Mathew Cobian MD [id number] [facility] [id number] Follow up Neurosurgery Follow up Please call to schedule an appointment in 4-[address] Brothers[address] [address] [facility] Plan of care note* Plan of Care - Khadijah Rahman RN - 09/29/2023 2:51 AM EST Problem: Patient Care Overview Goal: Discharge Needs Assessment Outcome: Progressing Goal: Interdisciplinary Rounds/Family Conf Outcome: Progressing [facility]03-07-2024 Plan of care note* Plan of Care - Ashlyn Romero RN - 09/28/2023 3:33 PM EST Problem: Patient Care Overview Goal: Discharge Needs Assessment Outcome: Progressing Flowsheets (Taken 09/28/2023 1523) Discharge Facility/Level Of Care Needs: rehabilitation facility Outpatient/Agency/Support Group Needs: inpatient rehabilitation facility Discharge Disposition: rehab facility Problem: Patient Care Overview Goal: Plan of Care Review Outcome: Completed Flowsheets (Taken 09/28/2023 1523) Plan Of Care Reviewed With: patient significant other Progress: improving Outcome Summary: Hem stroke was ruled out. 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 Goal: Individualization & Mutuality Outcome: Completed Flowsheets (Taken 09/28/2023 1523) What Questions Do You Have About Your Health or Care?: Questions concerning ongoing lightheadedness. Pt encouraged to follow up with PCP to continue with discovery of causes for lightheadedness. Problem: Stroke (Ischemic) (Adult) Goal: Signs and Symptoms of Listed Potential Problems Will be Absent, Minimized or Managed (Stroke) Description: Signs and symptoms of listed potential problems will be absent, minimized or managed by discharge/transition of care (reference Stroke (Ischemic) (Adult) CPG). Outcome: Completed Note: No stroke per MRI Problem: Patient Care Overview Goal: Interdisciplinary Rounds/Family Conf Flowsheets (Taken 09/28/2023 1523) Participants: physician advanced practice nurse family patient Note: Review of plan for IPR, no stroke (DVA) and Urine Cx reviewed (ATB d/c'd) [facility]03-07-2024 Plan of care note* Plan of Care - Froilan Stallworth, PT - 09/28/2023 2:19 PM EST Problem: PT - General Goals Goal: Supine <-> Sit Transfers - Patient will perform supine to/from sit transfers with independence and without use of hospital bed features in order to improve functional mobility and safety. Outcome: Progressing Goal: Sit <-> Stand Transfers - Patient will perform sit to/from stand transfers with modified independence and least restrictive device in order to improve functional mobility and safety. Outcome: Progressing Goal: Ambulation - Patient will ambulate 150+ feet with modified independence and least restrictivedevice to improve ability to safely navigate home and community. Outcome: Progressing [facility]03-07-2024 Miscellaneous Notes* Telephone Encounter - Mathew Cobian MD - 09/28/2023 11:48 AM EST Noted Mathew Cobian MD * Telephone Encounter - Lissa Rich RN - 09/27/2023 3:10 PM EST Federica with [employer] calls to let provider know that patient was transferred to [facility] ED yesterday for stroke like symptoms. She reports patient is doing well and stroke has been ruled out. Federica requests if we receive discharge summary to fax it to her at [phone]. Lissa Rich RN [facility] Plan of care note* Plan of Care - Khadijah Rahman RN - 09/28/2023 3:37 AM EST Problem: Patient Care Overview Goal: Plan of Care Review Outcome: Progressing Goal: Individualization & Mutuality Outcome: Progressing Goal: Discharge Needs Assessment Outcome: Progressing Goal: Interdisciplinary Rounds/Family Conf Outcome: Progressing Problem: Stroke (Ischemic) (Adult) Goal: Signs and Symptoms of Listed Potential Problems Will be Absent, Minimized or Managed (Stroke) Description: Signs and symptoms of listed potential problems will be absent, minimized or managed by discharge/transition of care (reference Stroke (Ischemic) (Adult) CPG). Outcome: Progressing [facility]03-06[facility] Plan of care note* Plan of Care - Connie Jordan PT - 09/27/2023 10:25 AM EST Problem: PT - General Goals Goal: Supine <-> Sit Transfers - Patient will perform supine to/from sit transfers with independence and without use of hospital bed features in order to improve functional mobility and safety. Outcome: Ongoing Goal: Sit <-> Stand Transfers - Patient will perform sit to/from stand transfers with modified independence and least restrictive device in order to improve functional mobility and safety. Outcome: Ongoing Goal: Ambulation - Patient will ambulate 150+ feet with modified independence and least restrictivedevice to improve ability to safely navigate home and community. Outcome: Ongoing Goal: Stairs - Patient will ascend/descend 3 stairs with modified independence, least restrictive device, and single railing(s) to improve ability to safely navigate home and community. Outcome: Ongoing [facility]03-06-2024 Plan of care note* Plan of Care - Bridget Jones OT - 09/27/2023 9:57 AM EST Problem: OT - ADLs Goal: Grooming - Patient will complete grooming in standing with modified independence and supervision for improved ability to safely complete ADLs. Outcome: Ongoing Goal: Bathing - Patient will perform full body bathing/dressing routine with modified independence and supervision while seated for improved ability to complete self-care activities Outcome: Ongoing Problem: OT - Endurance Goal: Endurance Functional Task Standing - Patient will engage in standing functional task for 15 minutes with standby assistance to improve activity tolerance necessary for safe ADL completion at recommended discharge destination. Outcome: Ongoing Problem: OT - Strength/ROM Goal: Strength/ROM ADL Participation - Patient will participate in UE exercise program with supervision to prevent deconditioning while in hospital and to max UE ROM/Coordination/strength for ADLs. Outcome: Ongoing Problem: OT - Other Goal: Energy Conservation with ADL's - Patient will independently utilize at least 2 energy conservation/pacing strategies during ADL completion to promote success and safety during daily routine. Outcome: Ongoing [facility]03-06-2024 Hospital Discharge instructions* Discharge Instructions* Herlinda Smith PHYSICIAN UNDERWRITER-REBRANDER - 09/27/2023 8:41 AM EST Please take these discharge instructions to your primary care doctor follow appointment to show them,keep them for your reference and refer to them often for follow up appointments. It is best to write your appointments on a personal calendar so you do not miss them, call if you need to change any appointments please. Keep an up-to-date medication list with you at all times. Patient Stroke Resources: CONTACTS FOR NEUROVASCULAR SERVICE: - You may call your neurovascular doctors office at [phone], if you have questions between 8:30 am and 4:30 pm. - For off hours or the weekend you may call the office or the hospital code machine operator at and ask for the stroke resident field artillery operations specialist to be paged. - If you have any questions or needs, please call Delilah MACE RN, stroke program managerat [phone] Mon-Mon from 01-23. Additional Contacts: Evening and Weekend Contacts If you have questions or concerns during evening, weekend, or holiday hours, please call: -[facility] code machine operator at [phone]. -[facility] code machine operator at [phone] Ask the code machine operator to page the on-call doctor for Neurovascular service, they were responsible for your care while you were in the hospital. If you having an emergency, call 911. Case Management Office [phone] *In the event of an Emergency: If you have a physical or psychiatric emergency call 911 or go to your local emergency department. You should also call your outpatient provider's emergency number. Other reference numbers: [facility] Intake Office at [phone]; [facility] at 442-957-8674; or Suicide Prevention Hotline at 560-687-0311. *Helpful phone numbers: Free Crisis Hotline: 1-537-401-TALK ( ) Suicide Hotline: 706.973.2442 Seniors Suicide Hotline: 248.326.7014 [facility] Youth: 955.220.8976 Mental Health of [place]: 579.813.5006 (free counseling) [facility] Access Hotline: 081-465-FPAG (598-171-5411) 24-hour crisis text hotline: Text the word 4hope to 395-310 for crisis support. Texting this number is free if you have Verizon, T-Mobile, AT&T or Sprint. [facility] Financial Assistance: If you want to learn more about these programs, please call .There are three programsto help you with the cost of your medical care: Medicaid, Hospital Care Assurance Program (HCAP) & mitch If you are without Insurance and believe you may qualify for Medicaid/public assistance: The [facility] Department of Job and Family Services can now process barreto (TANF), food (SNAP) and Medicaid Applications over the phone. Please call [phone] ([phone]) and apply over the phone or apply online at www.benefits.[place].gov. Monday-Monday 8am-12pm noon. Medication Assistance Programs [employer] members can buy 100+ common prescriptions for FREE, $3 or $6. Annual membership is $36 for individuals and $72 for families (up to 6 people, including pets). Sign up online or enroll at your nearest pharmacy! [employer], web site can provide a significant number of coupons for medications at a much lower kaiser. [place] Department of Aging The Department of Aging administers programs and services to meet the needs of older [place]. Services and resources offered per county may include transportation, housekeeping, meals and nutrition, personal care, case management, safety monitoring, home medical equipment, legal services, financial officer, health and wellness, education, caregiver support, respite care, etc. Call to be connected to the area agency on aging serving your community or visit aging.[place].gov/find-services. Request a consultation with a community resource expert at ltssi.age.[place].gov/ [facility] Stroke Support [facility] Stroke Support Group is for stroke survivors, friends, and family members. Meets on the Monday of each month from 6:30pm-7:30pm at [facility] ([address]; [place] [address]). Contact Linda Verde at [phone] or [email or web address]. If you are outside of the [facility], contact The [place] Stroke Association at www.strokeassociation.org or 5-125-6-stroke, or for supports groups in your area. You may also referto the Stroke Education booklet you received as part of your stroke education while you were a patient for additional resources. * Medications* MACHELLE Jain - 09/27/2023 8:31 AM EST Know your medicines Make sure you know why you are taking each medicine. Make a master list of all your medicines. Write down the medicine names and doctors' names. Includedoses and side effects too. And write down why you take each medicine. Include all prescription qbnuekh-gme-tvylfje medicines, vitamins, and supplements. Keep this list up to date. Take a copy to each doctor visit. Know when you will run out of each medicine. Ask your pharmacist if there are ways the drugstore can remind you to refill your medicines so you do not run out. Write refill reminders on your calendar. Don't wait until you have a few pills left. Ask your pharmacist to plan your refills so that you can brain picker all your medicines at the same time. This can mean fewer trips to the drugstore. If we have prescribed you a new medication during your stay, please contact with your primary physician for refills * Discharge Instr - Activity* MACHELLE Jain - 09/27/2023 8:32 AM EST Activity -- Please follow these instructions: -Advance your activity as you can tolerate - You may walk all you want. You may go up and down the steps. Use the railing for support - It is normal for your energy level and sleep patterns to change after a stroke - Take rest periods during the day as needed - Complete recovery may take several weeks, months, up to a year. Patience is kumar. * Discharge Instr - Diet* MACHELLE Jain - 09/27/2023 8:32 AM EST Current Diet Orders Procedures DIET REGULAR Standing Status: Standing Number of Occurrences: 1 * Discharge Instr - Notify* MACHELLE Jain - 09/27/2023 8:41 AM EST Notify Your Doctor if you have any of the following: NEUROLOGICAL CHANGES-- Change in alertness Increased sleepiness Nausea and vomiting New onset of numbness or weakness in arms or legs New problems with your bowels or bladder New or worse problems with balance or walking Seizures, new or worsening UNRELIEVED HEADACHE PAIN-- New or increased pain unrelieved with pain medications Pain associated with nausea and vomiting Pain associated with other symptoms QUESTIONS OR PROBLEMS-- Any questions or problems that you are unsure about Deep Vein Thrombosis Symptoms Call your doctor or nurse right away if you have any signs of blood clots such as -Tender, swollen or reddened areas anywhere in your leg. -Numbness or tingling in your lower leg or calf, or at the top of your leg or groin -Skin on you leg looks pale or blue or feels cold to touch -Chest pain or have trouble breathing -Fever or chills documented in this [facility]03-06-2024 History and physical note* Cristina Chan MD - 09/27/2023 8:39 AM EST Stroke Attending Addendum (Date of service 09/27/23): I have interviewed and examined patient. I have reviewed Dr. Keisha Alcantara's note and agree with the following highlights, additions, and addendums: The patient is a 58 y.o. right-handed male ex-smoker with a history of mild cerebral palsy (affects bilateral legs,/gait, uses a walking stick) and hypothyroidism who on developed symptoms of positional light-headedness on 09/22 (since Sat evening on and off). He saw his PCP who recommended he go to ER. At the Outside hospital Emergency Room CT brain showed a right frontal hypodensity. OSH CT angiogram head/neck showed large vein adjacent to hyperdensity. He was [facility] ER and on arrival NIHSS was 0. The patient was admitted to the stroke team. LDL 129, HgbA1c 5.5. MRI brain confirms right frontal dVA. ROS: Pertinent Positives and Negatives are positive for no DOHERTY, no dysuria, + urinary frequency. All other systems reviewed and are negative. Interval Overnight History:119/68. Patient feels better. Neurological examination shows nonfocalexam, NIHSS-0. Assessment/Plan: Right frontal dVA. ICH has been ruled out, CTA/MRI brain shows dVA.DC stroke orders. PT consults. DC home after cleared by PT. UA + trace LE, start antibitoics for UTI. Follow-up in NS in outpatient clinic. Follow-up with PCP in 1 week. Cristina Chan MD [facility]03-06-2024 History and physical note* Cristina Chan MD - 09/27/2023 8:39 AM EST Stroke Attending Addendum (Date of service 09/27/23): I have interviewed and examined patient. I have reviewed Dr. Keisha Alcantara's note and agree with the following highlights, additions, and addendums: The patient is a 58 y.o. right-handed male ex-smoker with a history of mild cerebral palsy (affects bilateral legs,/gait, uses a walking stick) and hypothyroidism who on developed symptoms of positional light-headedness on 09/22 (since Sat evening on and off). He saw his PCP who recommended he go to ER. At the Outside hospital Emergency Room CT brain showed a right frontal hypodensity. OSH CT angiogram head/neck showed large vein adjacent to hyperdensity. He was transferred to [facility] ER and on arrival NIHSS was 0. The patient was admitted to the stroke team. LDL 129, HgbA1c 5.5. MRI brain confirms right frontal dVA. ROS: Pertinent Positives and Negatives are positive for no DOHERTY, no dysuria, + urinary frequency. All other systems reviewed and are negative. Interval Overnight History:119/68. Patient feels better. Neurological examination shows nonfocalexam, NIHSS-0. Assessment/Plan: Right frontal dVA. ICH has been ruled out, CTA/MRI brain shows dVA.DC stroke orders. PT consults. DC home after cleared by PT. UA + trace LE, start antibitoics for UTI. Follow-up in NSG in outpatient clinic. Follow-up with PCP in 1 week. Cristina Chan MD [facility] Plan of care note* Plan of Care - Sanjay Ledesma MD - 09/27/2023 7:46 AM EST Neurosurgery Update: Consulted for [facility]. Briefly, Mr. Good De Luna is a 58 y.o. male w/ cerebral palsy, hypothyroidism, prostate cancer [place] 6 currently on surveillance p/w dizziness and lightheadedness starting monday. 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 No significant difference vs OSH imaging. No neurosurgical intervention at this time. - Please have patient follow up with Dr. Brothers in 4-6 weeks in outpatient clinic - Neurosurgery will sign-off. Please call with questions. Sanjay Ledesma MD, Neurosurgery NS2 ([phone]) [facility] Work Phone: 1(982) 142-332103-06-2024 Emergency department Note* Nela Blanco RN - 09/27/2023 12:14 AM EST Per MD Marie & SANDI, ok to go to mri off tele. [facility]03-06-2024 Emergency department Note* Nela Blanco RN - 09/27/2023 12:14 AM EST Per MD Marie & SANDI, ok to go to mri off tele. * Evan Burnham MD - 09/26/2023 9:56 PM EST ED ATTENDING PHYSICIAN NOTE: Chief complaint: Chief Complaint Patient presents with Dizziness HPI: Good De Luna is a 58 y.o. year old male with Hx of CP who presents with dizziness/lightheadeness since Sat. Went to OSH where CT showed small intraparenchymal hemorrhage. No trauma but plays rhino with grandson. No thinners, plavix. BP 135/70 Pulse 54 Resp 14 SpO2 97% Pertinent Exam: Gen: awake and alert, no apparent distress Neuro: oriented x4, no facial assymetry, no gross motor deficits HEENT: moist oral mucosa CV: regular rhythm, no murmurs, no JVD, no peripheral edema Pulm: no increased work of breathing, breath sounds equal bilaterally, no wheezes, rhonchi, or rales Abd: soft, nontender, nondistended Ext: warm and well perfused, no clubbing or cyanosis Psych: affect appropriate, no agitition ECG interpretation: Interpreted by: Evan Burnham MD 09/26/2023 9:57 PM Rate: normal Rhythm: normal [place]: normal Intervals: normal ST segments: normal T waves: TWI in aVL,V2,3 Other pathology: none Impression: abnormal ECG MDM: Initial impression: Intraparenchymal hemorrhage, uncertain etiology Initial plan: Stroke bundle Neurovascular and neurosurgery consult Repeat CTH for stability BP <140 Plan for admission Medical Decision Making Amount and/or Complexity of Data Reviewed External Data Reviewed: radiology and notes. Details: PCP note, OSH CT scan Labs: ordered. Radiology: ordered and independent interpretation performed. ECG/medicine tests: ordered and independent interpretation performed. Discussion of management or test interpretation with external provider(s): Neurovascular, neurosurgery Risk OTC drugs. Prescription drug management. Decision regarding hospitalization. Differential includes life threatening diseases such as: stroke, hemorrhage, dissection, brain mass Clayton Burnham MD, [facility] V/[place] Signal Officer of Internal and Emergency Medicine Division of Pulmonary, Critical Care, and Sleep Medicine Prior medical records were reviewed. All pertinent labs and imaging results were reviewed and interpreted by me. The patient was updated regarding findings, and was re-assessed during ED stay. This patient's history and physical exam were performed by the resident. On 09/26/2023 I saw and examined the patient. I discussed the history and examination with the resident and agree with the plan of care. In addition, I have fully participated in the care of this patient. I have reviewed all pertinent clinical information, including history, physical exam and medical decision making with the resident. Critical care time: none *This note was transcribed using voice recognition software. While it has been carefully proofread,some errors may still be present Evan Burnham MD 09/26/23 [id number] * Nela Blanco RN - 09/26/2023 9:42 PM EST Pt presents via ground transport as hemorrhagic stroke alert. LKW Monday evening. Patient developed dizziness without falls, no trauma. Patient reportedly has no deficits. Went to OSH today and was found to have R frontal ICH on imaging. Patient presents to scanner alert, oriented. EM and Neurovasc teams present on arrival for evaluation. Gluc 87 * Connie Savage RN - 09/26/2023 9:41 PM EST Bed: E036 Expected date: Expected time: Means of arrival: Comments: Calixto-nih 0 * Alfredo Zhao MD - 09/26/2023 9:38 PM EST DEPARTMENT OF EMERGENCY MEDICINE CHIEF COMPLAINT No chief complaint on file. HPI Good De Luna is a 58 y.o. male with history of cerebral palsy, hypothyroidism, prostate cancer whopresents as a transfer from an outside hospital as a level 2 hemorrhagic stroke alert. Brief History: Patient reports that he was usual state of health until this past Monday when he noted onset of dizziness/lightheadedness. He denies any room spinning. Denies any headache, numbness,tingling, weakness. He denies any head trauma, notes that he and his grandson do play a game where they bumped their heads together but states that this is not hard. He has not had any chest pain, shortness of breath, cough, sore throat, runny nose, fevers, chills, abdominal pain, nausea, vomiting,changes in bowel/bladder habits. LKW: 3d STATISTICAL TYPIST Deficits include: None Anticoagulation/Antiplatelets: None Prior strokes: No Blood glucose: Normal tPA given: No Outside hospital imaging findings if transferred: Impression/Summary CT Head without Contrast IPH CT Angio Brain/Neck Cavernoma, Congenital AVM REVIEW OF SYSTEMS Unable to obtain ROS secondary to acuity of patient's condition. PAST MEDICAL HISTORY No past medical history on file. SURGICAL HISTORY No past surgical history on file. CURRENT MEDICATIONS Current Facility-Administered Medications Medication Dose Route Frequency Provider Last Rate Last Admin Lidocaine 1% (PF) (XYLOCAINE MPF) 1 % injection 0.3 mL 0.3 mL Infiltration Once PRN Austin Day MD No current outpatient medications on file. ALLERGIES Not on File FAMILY HISTORY No family history on file. SOCIAL HISTORY Social History Socioeconomic History Marital status: Not on file Spouse name: Not on file Number of children: Not on file Years of education: Not on file Highest education level: Not on file Occupational History Not on file Tobacco Use Smoking status: Not on file Smokeless tobacco: Not on file Substance and Sexual Activity Alcohol use: Not on file Drug use: Not on file Sexual activity: Not on file Other Topics Concern Not on file Social History Narrative Not on file Social Determinants of Health Financial Resource Strain: Not on file Food Insecurity: Not on file Transportation Needs: Not on file Physical Activity: Not on file Stress: Not on file Social Connections: Not on file Intimate Partner Violence: Not on file Housing Stability: Not on file PHYSICAL EXAM There were no vitals taken for this visit. Physical Exam IMAGING CT STROKE HEAD-STROKE ALERT ONLY (Results Pending) CT ANGIO BRAIN/NECK (Results Pending) ED COURSE & MEDICAL DECISION MAKING Important diagnostic considerations include: ischemic stroke, hemorrhagic stroke, transient ischemic attack, hypoglycemia, electrolyte abnormality, infection, seizure, complex migraine with unilateral symptoms Initial Plan: Labs: POC glucose, CBC, Chem, LFTs, EKG, PT/INR Imaging: as above Therapeutic: [x] PRN Hydralazine & Labetalol [] Nicardipine gtt Goal systolic BP <140 Consultation: [x] Neurovascular [] Neurosurgery ED Course, Medications Given, MDM: Patient arrived via EMS as a stroke alert. Patient evaluated at the CT scanner by myself and neurovascular resident. The patient was found to be hemodynamically stable and protecting airway. 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 Will consult NSG. If they are not planning intervention, [facility] will take patinet on their service. ED Course as of 09/26/232223Sep 26, 20232217 Per Neuro: If NSGY isn't planning on any acute intervention or isn't planning on admitting, then he can come to [place] PCU under Dr. Chan Medications Lidocaine 1% (PF) (XYLOCAINE MPF) 1 % injection 0.3 mL (has no administration in time range) Disposition: Admission, PCU level at least Medical Decision Making Amount and/or Complexity of Data Reviewed Labs: ordered. Radiology: ordered. ECG/medicine tests: ordered. Risk Prescription drug management. Alfredo Zhao MD This note was dictated using M-Modal Dictation Software. Attempts at proofreading have been made, however errors may still occasionally occur. Alfredo Zhao MD Resident 09/26/232225 * NYDIA Casper - 09/26/2023 9:31 PM EST ED SW responded to stroke alert. Pt is a transfer from [facility] . SW called and confirmed with OSH that family waspresent there and aware of transfer to [facility] ED. Patient Contacts (08/25) barbara De Luna Child [phone] Cee De Luna Child [phone] SW to remain available for any needs, once pt arrives to [facility] ED. ARMEN Minaya [phone] documented in this encounterOS[facility] NoteAcute Coronary Syndrome (ACS): Initial Evaluation and Management: [email or web address] [facility]03-05-2024 Consult note* Sebastian Roque MD - 09/26/2023 10:28 PM ESTAssociated Order(s): IP CONSULT TO SURGERY - NEURO Neurosurgery Consult Note Reason for Consultation: IPH HPI Mr. Good De Luna is a 58 y.o. male w/ cerebral palsy, hypothyroidism, prostate cancer [place] 6 currently on surveillance p/w dizziness and lightheadedness starting monday. 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 No significant difference vs OSH imaging. ICH score GCS: Vol. >30mL: IVH: Infratentorial: Age >=80: 0 - GCS 13-15 0 - no 0 - no 0 - no 0 - no Total: 0 Pt denies new numbness, weakness, paresthesias, altered ambulation, change in vision, difficulty swallowing, change in speech, or other focal neurologic deficits. He takes no anticoagulants or antiplatelet agents. INR and plts wnl ROS: All other systems are negative except as mentioned in HPI Past Medical History: Diagnosis Date Cerebral palsy GERD (gastroesophageal reflux disease) Hypothyroidism No past surgical history on file. History reviewed. No pertinent family history. Social History Tobacco Use Smoking status: Former Current packs/day: 0.00 Types: Cigarettes Quit date: 07/30/2023 Years since quittin.1 Smokeless tobacco: Never Vaping Use Vaping status: Every Day Substance Use Topics Alcohol use: Yes Comment: 3-4 drinks/ week Drug use: Not Currently Allergies No Known Allergies Infusions Scheduled Meds Acetaminophen 975 mg Oral Once lidocaine 1 patch Transdermal Q24H PRN Meds: hydrALAZINE, Labetalol, Lidocaine 1% (PF) Home Meds Prior to Admission medications Medication Sig Start Date End Date Taking? Authorizing Provider levothyroxine 175 MCG tablet Take 1 tablet by mouth daily. 09/15/23 09/14/24 Yes Historical Provider Meclizine 25 MG tablet Take 1 tablet by mouth Every 8 hours as needed for Dizziness. 09/26/23 Yes Historical Provider omeprazole [address] capsule Take 1 capsule by mouth daily. 12/20/22 Yes Historical Provider Acetaminophen 325 MG tablet Take 1 tablet by mouth every 4 hours. Historical Provider B Complex Vitamins capsule Take 1 capsule by mouth daily. Historical Provider Citalopram 10 MG tablet Take 4 tablets by mouth daily. Historical Provider Ibuprofen 400 MG tablet Take 1 tablet by mouth every 6 hours as needed for Mild Pain. Historical Provider Vitals Temp: [98 F (36.7 C)] 98 F (36.7 C) Pulse (Heart Rate): [51-54] 53 Resp Rate: [14-24] 23 BP: (125-162)/(70-82) 129/82 O2 Sat (%): [96 %-99 %] 96 % Weight: [103.9 kg (229 lb 1.6 oz)] 103.9 kg (229 lb 1.6 oz) Physical NAD AOx3 PERRL EOMI FS TM FCx4 5/5 BUE 5/ BLE SILT Labs WBC/Hgb/Hct/Plts: 10.33/14.5/43.8/252 (09/25 2209) Bun/Creat/Cl/CO2/Glucose: --/--/--/--/87 (09/25 2142) No results for input(s): PT, INR in the last 72 hours. Imaging: CT STROKE HEAD-STROKE ALERT ONLY (Results Pending) A/P: Good De Luna is a 58 y.o. male w/ pmh prostate cancer on surveillance p/w dizziness found to have R frontal hyperdensity assoc w/ large draining vein c/f DVA assoc w/ cavernoma w/ acute hemorrhage - recommend MRI brain w/wo to evaluate for cavernoma, favored vs other underlying lesion Staff: Deneen Covering: NS2 ([id number]) ## neurosurgery coverage changes at 30/173; if 0530 or 1730 has passed since original consult note placed, please page covering pager above ## Complexity. Obesity Body mass index is 38.12 kg/m . - Follow with PCP for dietary and lifestyle modifications. Hypothyroidism - Continue thyroid replacement Any conditions listed below are present on admission unless otherwise specified. . Associated attestation - Shubham Brothers MD - 09/27/2023 11:20 AM EST I, Shubham Brothers MD., saw and evaluated the patient. Case was discussed with the Housestaff. I personally performed the kumar portions of the history and the physical examination and I agree with thefindings, assessment and plan. I edited the documentation as necessary. Good De Luna is a 58 y.o. male w/ pmh prostate cancer on surveillance p/w dizziness found to have R frontal hyperdensity assoc w/ large draining vein c/f DVA assoc w/ cavernoma w/ acute hemorrhage - recommend MRI brain w/wo to evaluate for cavernoma, favored vs other underlying lesion Thank you for allowing me to participate in the care of this patient. [facility] Work Phone: [phone]) 505-279903-05-2024 Consult note* Sebastian Roque MD - 09/26/2023 10:28 PM ESTAssociated Order(s): IP CONSULT TO SURGERY - NEURO Neurosurgery Consult Note Reason for Consultation: IPH HPI Mr. Good De Luna is a 58 y.o. male w/ cerebral palsy, hypothyroidism, prostate cancer [place] 6 currently on surveillance p/w dizziness and lightheadedness starting monday. 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 No significant difference vs OSH imaging. ICH score GCS: Vol. >30mL: IVH: Infratentorial: Age >=80: 0 - GCS 13-15 0 - no 0 - no 0 - no 0 - no Total: 0 Pt denies new numbness, weakness, paresthesias, altered ambulation, change in vision, difficulty swallowing, change in speech, or other focal neurologic deficits. He takes no anticoagulants or antiplatelet agents. INR and plts wnl ROS: All other systems are negative except as mentioned in HPI Past Medical History: Diagnosis Date Cerebral palsy GERD (gastroesophageal reflux disease) Hypothyroidism No past surgical history on file. History reviewed. No pertinent family history. Social History Tobacco Use Smoking status: Former Current packs/day: 0.00 Types: Cigarettes Quit date: 07/30/2023 Years since quittin.1 Smokeless tobacco: Never Vaping Use Vaping status: Every Day Substance Use Topics Alcohol use: Yes Comment: 3-4 drinks/ week Drug use: Not Currently Allergies No Known Allergies Infusions Scheduled Meds Acetaminophen 975 mg Oral Once lidocaine 1 patch Transdermal Q24H PRN Meds: hydrALAZINE, Labetalol, Lidocaine 1% (PF) Home Meds Prior to Admission medications Medication Sig Start Date End Date Taking? Authorizing Provider levothyroxine 175 MCG tablet Take 1 tablet by mouth daily. 09/15/23 09/14/24 Yes Historical Provider Meclizine 25 MG tablet Take 1 tablet by mouth Every 8 hours as needed for Dizziness. 09/26/23 Yes Historical Provider omeprazole [address] capsule Take 1 capsule by mouth daily. 12/20/22 Yes Historical Provider Acetaminophen 325 MG tablet Take 1 tablet by mouth every 4 hours. Historical Provider B Complex Vitamins capsule Take 1 capsule by mouth daily. Historical Provider Citalopram 10 MG tablet Take 4 tablets by mouth daily. Historical Provider Ibuprofen 400 MG tablet Take 1 tablet by mouth every 6 hours as needed for Mild Pain. Historical Provider Vitals Temp: [98 F (36.7 C)] 98 F (36.7 C) Pulse (Heart Rate): [51-54] 53 Resp Rate: [14-24] 23 BP: (125-162)/(70-82) 129/82 O2 Sat (%): [96 %-99 %] 96 % Weight: [103.9 kg (229 lb 1.6 oz)] 103.9 kg (229 lb 1.6 oz) Physical NAD AOx3 PERRL EOMI FS TM FCx4 5/5 BUE 5/5 BLE SILT Labs WBC/Hgb/Hct/Plts: 10.33/14.5/43.8/252 (09/25 2209) Bun/Creat/Cl/CO2/Glucose: --/--/--/--/87 (09/25 2142) No results for input(s): PT, INR in the last 72 hours. Imaging: CT STROKE HEAD-STROKE ALERT ONLY (Results Pending) A/P: Good De Luna is a 58 y.o. male w/ pmh prostate cancer on surveillance p/w dizziness found to have R frontal hyperdensity assoc w/ large draining vein c/f DVA assoc w/ cavernoma w/ acute hemorrhage - recommend MRI brain w/wo to evaluate for cavernoma, favored vs other underlying lesion Staff: Deneen Covering: NS2 ([id number]) ## neurosurgery coverage changes at 0530/1730; if 0530 or 1730 has passed since original consult note placed, please page covering pager above ## Complexity. Obesity Body mass index is 38.12 kg/m . - Follow with PCP for dietary and lifestyle modifications. Hypothyroidism - Continue thyroid replacement Any conditions listed below are present on admission unless otherwise specified. . Associated attestation - Shubham Brothers MD - 09/27/2023 11:20 AM EST I, Shubham Brothers MD., saw and evaluated the patient. Case was discussed with the Housestaff. I personally performed the kumar portions of the history and the physical examination and I agree with thefindings, assessment and plan. I edited the documentation as necessary. Good De Luna is a 58 y.o. male w/ pmh prostate cancer on surveillance p/w dizziness found to have R frontal hyperdensity assoc w/ large draining vein c/f DVA assoc w/ cavernoma w/ acute hemorrhage - recommend MRI brain w/wo to evaluate for cavernoma, favored vs other underlying lesion Thank you for allowing me to participate in the care of this patient. * Keisha Alcantara MD - 09/26/2023 9:13 PM EST Neurovascular Evaluation Note Evaluation Date: 09/27/2023 Unit: [id number]/[id number] Consultation was requested by Dr. Alejandro Pinon MD Patient status: Inpatient Length of stay: 0 days Reason for Consult/Chief Complaint Hemorrhagic stroke alert History of Present Illness Good De Luna is a 58 y.o. male with a history of cerebral palsy and hypothyroidism who presented on 09/26/2023 as a Level A Hemorrhagic Stroke Alert for R frontal IPH. A stroke alert was called for STAT consultation. LKW 3/2. Since then, has been feeling foggy and lightheaded. No preceding falls or trauma. Outside hospital SBP 124, BG 118. Outside hospital NIH 0. Telestroke not done. Outside hospital CTH showed acute R frontal IPH. Outside hospital CT Angiography normal, no spot sign. No Lytics given due to bleed. No reversal agents given since not on any antithrombotics. Former tobacco user, quit in 07/2023. Drinks EtOH socially on occasion. No recreational drug use. Patient first presented to an [facility] ED facility: no Last Known Well: Date: 09/23/23 Review of Systems Review of systems not completed due to emergent condition. See HPI. Neurovascular-specific History / Information Home antiplatelet/anticoagulation therapy: Antiplatelet therapy: none Anticoagulation: none. Patient Current Risk Factors: Stroke risk factors include smoking. Prior stroke history: no. Family Hx of Stroke: Parents: no Siblings: no Stroke Diagnostic/Treatment Eligibility Information Did not receive TNK due to bleed. Stroke Clinical Assessment Information: NIHSS (Provider) Flowsheet Row First Filed Value Provider NIH Stroke Scale NIH Interval (Provider) daily filed on 09/26/2023 214 NIH Level of Conciousness (Provider) 0 filed on 09/26/2023 2140 NIH LOC Questions (Provider) 0 filed on 09/26/2023 214 NIH LOC Commands (Provider) 0 filed on 09/26/2023 214 NIH Best Gaze (Provider) 0 filed on 09/26/2023 214 NIH Visual (Provider) 0 filed on 09/26/2023 2140 NIH Facial Palsy (Provider) 0 filed on 09/26/2023 2140 NIH Left Arm Motor (Provider) 0 filed on 09/26/2023 2140 NIH Right Arm Motor (Provider) 0 filed on 09/26/2023 2140 NIH Left Leg Motor (Provider) 0 filed on 09/26/2023 2140 NIH Right Leg Motor (Provider) 0 filed on 09/26/2023 214 NIH Limb Ataxia (Provider) 0 filed on 09/26/2023 214 NIH Sensory (Provider) 0 filed on 09/26/2023 2140 NIH Best Language (Provider) 0 filed on 09/26/2023 214 NIH Dysarthria (Provider) 0 filed on 09/26/2023 2140 NIH Extinction and Inattention (Provider) 0 filed on 09/26/20232139 NIH Total Score (Provider) 0 filed on 09/26/20232139 Is NIH=0 Within 180 min of Last Known Well Time? -- Stroke Scales Flowsheet Row Most Recent Value ICH Score (Calculated) 0 filed on 09/26/20232222 ICH Volume (ml) (Calculated Score) 10.92 filed on 09/26/20232222 NIH Total Score (Provider) 0 filed on 09/26/20232139 Past Medical History Medical History: Past Medical History: Diagnosis Date Cerebral palsy GERD (gastroesophageal reflux disease) Hypothyroidism Prostate CA SURGICAL HISTORY: No past surgical history on file. SOCIAL HISTORY: Social History Tobacco Use Smoking status: Former Current packs/day: 0.00 Types: Cigarettes Quit date: 07/30/2023 Years since quittin.1 Smokeless tobacco: Never Vaping Use Vaping status: Every Day Substance Use Topics Alcohol use: Yes Comment: 3-4 drinks/ week Drug use: Not Currently Medications PRIOR TO ARRIVAL MEDS: Prior to Admission medications Not on File Current Meds: Current Facility Administered Meds: Current Facility-Administered Medications Medication Dose Route Frequency Provider Last Rate Last Admin Acetaminophen (TYLENOL) tablet 325 mg 325 mg Oral Q4H PRN Keisha Alcantara MD Or Acetaminophen (TYLENOL) tablet 325 mg 325 mg Per NG tube Q4H PRN Keisha Alcantara MD Or Acetaminophen (TYLENOL) tablet 650 mg 650 mg Oral Q4H PRN Keisha Alcantara MD Or Acetaminophen (TYLENOL) tablet 650 mg 650 mg Per NG tube Q4H PRN Keisha Alcantara MD Acetaminophen (TYLENOL) tablet 975 mg 975 mg Oral Once Alfredo Zhao MD B Complex capsule 1 capsule 1 capsule Oral Daily Keisha Alcantara MD Citalopram (CELEXA) tablet 40 mg 40 mg Oral Daily Keisha Alcantara MD hydrALAZINE (APRESOLINE) injection 10 mg 10 mg Intravenous Q10 MIN PRN Alfredo Zhao MD hydrALAZINE (APRESOLINE) injection 10 mg 10 mg Intravenous Q1H PRN Keisha Alcantara MD Or hydrALAZINE (APRESOLINE) injection 20 mg 20 mg Intravenous Q1H PRN Keisha Alcantara MD Labetalol (NORMODYNE) injection 10 mg 10 mg Intravenous Q1H PRN Keisha Alcantara MD Or Labetalol (NORMODYNE) injection 20 mg 20 mg Intravenous Q1H PRN Keisha Alcantara MD Labetalol (NORMODYNE) injection 20 mg 20 mg Intravenous Q10 MIN PRN Alfredo Zhao MD Levothyroxine (SYNTHROID) tablet 175 mcg 175 mcg Oral Daily Keisha Alcantara MD lidocaine 4 % patch 1 patch 1 patch Transdermal Q24H Alfredo Zhao MD LORazepam (ATIVAN) tablet 2 mg 2 mg Oral Once Karan Marie MD Ondansetron 4mg/2ml (ZOFRAN) injection 4 mg 4 mg Intravenous Q6H PRN Keisha Alcantara MD Or Ondansetron (ZOFRAN) tablet 4 mg 4 mg Oral Q6H PRN Keisha Alcantara MD Pantoprazole (PROTONIX) tablet DR 40 mg 40 mg Oral Daily Keisha Alcantara MD Polyethylene glycol (MIRALAX) packet 17 g 17 g Oral Daily PRN Keisha Alcantara MD Or Polyethylene glycol (MIRALAX) packet 17 g 17 g Per NG tube Daily PRN Keisha Alcantara MD Senna (SENOKOT) tablet 8.6 mg 8.6 mg Oral Daily Keisha Alcantara MD Or Senna (SENOKOT) tablet 8.6 mg 8.6 mg Per NG tube Daily Keisha Alcantara MD sodium chloride 0.9% 1,000 ml with potassium chloride 20 mEq premix IV solution Intravenous Continuous Keisha Alcantara MD Current Outpatient Medications Medication Sig Dispense Refill levothyroxine 175 MCG tablet Take 1 tablet by mouth daily. Meclizine 25 MG tablet Take 1 tablet by mouth Every 8 hours as needed for Dizziness. omeprazole [address] capsule Take 1 capsule by mouth daily. Acetaminophen 325 MG tablet Take 1 tablet by mouth every 4 hours. B Complex Vitamins capsule Take 1 capsule by mouth daily. Citalopram 10 MG tablet Take 4 tablets by mouth daily. Ibuprofen 400 MG tablet Take 1 tablet by mouth every 6 hours as needed for Mild Pain. Scheduled Meds: Acetaminophen 975 mg Oral Once B Complex 1 capsule Oral Daily Citalopram 40 mg Oral Daily levothyroxine 175 mcg Oral Daily lidocaine 1 patch Transdermal Q24H LORazepam 2 mg Oral Once Pantoprazole 40 mg Oral Daily Senna 8.6 mg Oral Daily Or Senna 8.6 mg Per NG tube Daily Continuous Infusions: Sodium chloride 0.9% w/potassium cl PRN Meds:Acetaminophen OR Acetaminophen OR Acetaminophen OR Acetaminophen, hydrALAZINE,hydrALAZINE OR hydrALAZINE, Labetalol OR Labetalol, Labetalol, Ondansetron 4mg/2ml OR Ondansetron, Polyethylene glycol OR Polyethylene glycol Vitals Objective Findings: Vital Signs (24hrs): Temp: [98 F (36.7 C)] 98 F (36.7 C) Pulse (Heart Rate): [51-55] 55 Resp Rate: [14-25] 20 BP: (105-162)/(63-82) 107/67 O2 Sat (%): [95 %-99 %] 95 % Weight: [103.9 kg (229 lb 1.6 oz)] 103.9 kg (229 lb 1.6 oz) Body mass index is 38.12 kg/m . Lines/Drains/Airways/Wounds: Patient Lines/Drains/Airways Status Active Lines, Drains, Airways, & Wound Overview Name Placement date Placement time Site Days Peripheral IV Line - Single Lumen 09/26/232144 green median vein (underside of arm), left 18 gauge09/26/232144 -- less than 1 Physical Exam General: Laying comfortably in bed; in no acute distress. CV: RRR. Pulmonary: No increased work of breathing, equal chest rise bilaterally, no audible wheezing. Abdomen: soft, non-tender Ext: No cyanosis, edema, or deformity Skin: No rash Neurological Examination Psych and Mental status: alert; oriented to age and month; good attention Speech/language: fluent; comprehension intact; repetition intact Cranial nerves: CN II visual casillas full to confrontation without visual extinction CN III, IV, PERRL. EOMI. CN V facial sensation intact to light touch bilaterally in V1, V2, V3 CN VII face, smile, eyebrow raise/closure symmetric CN VIII hearing grossly intact to voice CN IX & X soft palate elevates symmetrically in the midline, no dysarthria CN XI shoulder shrug full strength bilaterally CNXII tongue protrudes midline Motor: Normal bulk and tone. Right Arm: no drift Left Arm: no drift Right Leg: no drift Left Leg: no drift Coordination: Sanidl-tm-hrza intact bilaterally. Sensation: intact to light touch throughout without extinction. Gait: not assessed. Laboratory Results Diagnostics/Procedures: Labs-CBC WBC/Hgb/Hct/Plts: 10.33/14.5/43.8/252 (09/25 2209) Labs-Chem 7([facility]) Bun/Creat/Cl/CO2/Glucose: 18/0.88/103/24/97 (09/25 2209) Na/K+/Phos/Mg/Ca: 135/4.1/3.4/1.9/9.5 (09/25 2209) Labs-Coags Ptt/Pt/Inr: 31.2/12.7/1.0 (09/25 2209) Additional Labs No results found for: CHOLESTEROL, TRIG, HDL, LDLCALC, LDLDIRECT Labs-Hemoglobin A1C No results found for: HGBA1C Imaging CT STROKE HEAD-STROKE ALERT ONLY Final Result IMPRESSION: 1. Anterior right frontal juxtacortical hyperdensity associated large draining vein. 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 The absence of adjacent edema suggests the presence of superimposed acute hemorrhage may be less likely, though characterization is limited in the absence of more remote comparison imaging. MR correlation is advised to more definitively characterize. Findings were discussed with Keisha Alcantara MD at 09/26/23 on 10:02PM. I personally viewed and interpreted these images and I have reviewed and approved this report. BRAIN WITH AND WITHOUT CONTRAST (Results Pending) CT HEAD WITHOUT CONTRAST (Results Pending) CT HEAD WITHOUT CONTRAST (Results Pending) Assessment/Impression Good De Luna is a 58 y.o. male with a history of cerebral palsy and hypothyroidism who presented on 09/26/2023 as a Level A Ischemic Stroke Alert for R frontal IPH. NIH 0. CTH shows R frontal hyperdensity concerning for bleed. CT Angiography shows concern for developmental venous anomaly with cavernoma, unable to rule out hemorrhage. No Lytics or reversal agentsgiven. Plan -Please admit to neurovascular service PCU, attending Dr. Chan. A hemorrhagic stroke order set has been signed and held. ICH score 0 -Neurosurgery consulted. Appreciate recommendations -Check PT/INR/PTT and reverse any coagulopathy -Blood pressure goals with SBP less than 140 -Repeat a head CT [address] -Vital signs and neuro assessments q2h -No anticoagulation, antiplatelet therapy and pharmacological DVT prophylaxis until a follow up head CT/MRI has been completed to ensure stability of hemorrhage -Obtain brain MRI with and without contrast unless contraindicated -Swallow evaluation prior to any oral intake -ECHO to evaluate cardiac function -Lipid panel, LFTs and HgbA1c to evaluate secondary risk factors -Baseline EKG, if not done in ED. Continuous telemetry -PT, OT, Speech and social media analyst consults Other problems: Complexity. Obesity Body mass index is 38.12 kg/m . - Follow with PCP for dietary and lifestyle modifications. Hypothyroidism - Continue thyroid replacement Other medical problems: GERD: Continue home PPI Hypothyroidism: continue home synthroid 175 daily Depression: continue home celexa 40mg daily Code Status: Full Code DVT prophylaxis: SCDs Diet: DIET NPO WITHOUT meds This plan has been discussed with stroke fellow Dr. Ibanez and has been communicated to ED team. Plans are preliminary until note is cosigned and attested by consulting attending physician. Please see final attending physician attestation for final recommendations. If you have any further questions, please contact the on-call resident or TABITHA listed on [email or web address].The author of this note does not necessarily reflect the individual field artillery operations specialist. Please page with urgent questions, as IS Secure Chat is not a reliable method for urgent needs. Signed, Keisha Alcantara MD [facility]rology [facility] Phys[facility] Emergency department Note* Evan Burnham MD - 09/26/2023 9:56 PM EST ED ATTENDING PHYSICIAN NOTE: Chief complaint: Chief Complaint Patient presents with Dizziness HPI: Good De Luna is a 58 y.o. year old male with Hx of CP who presents with dizziness/lightheadeness since Sat. Went to OSH where CT showed small intraparenchymal hemorrhage. No trauma but plays rhino with grandson. No thinners, plavix. BP 135/70 Pulse 54 Resp 14 SpO2 97% Pertinent Exam: Gen: awake and alert, no apparent distress Neuro: oriented x4, no facial assymetry, no gross motor deficits HEENT: moist oral mucosa CV: regular rhythm, no murmurs, no JVD, no peripheral edema Pulm: no increased work of breathing, breath sounds equal bilaterally, no wheezes, rhonchi, or rales Abd: soft, nontender, nondistended Ext: warm and well perfused, no clubbing or cyanosis Psych: affect appropriate, no agitition ECG interpretation: Interpreted by: Evan Burnham MD 09/26/2023 9:57 PM Rate: normal Rhythm: normal [place]: normal Intervals: normal ST segments: normal T waves: TWI in aVL,V2,3 Other pathology: none Impression: abnormal ECG MDM: Initial impression: Intraparenchymal hemorrhage, uncertain etiology Initial plan: Stroke bundle Neurovascular and neurosurgery consult Repeat CTH for stability BP <140 Plan for admission Medical Decision Making Amount and/or Complexity of Data Reviewed External Data Reviewed: radiology and notes. Details: PCP note, OSH CT scan Labs: ordered. Radiology: ordered and independent interpretation performed. ECG/medicine tests: ordered and independent interpretation performed. Discussion of management or test interpretation with external provider(s): Neurovascular, neurosurgery Risk OTC drugs. Prescription drug management. Decision regarding hospitalization. Differential includes life threatening diseases such as: stroke, hemorrhage, dissection, brain mass Clayton Burnham MD, [facility] V/[place] Signal Officer of Internal and Emergency Medicine Division of Pulmonary, Critical Care, and Sleep Medicine Prior medical records were reviewed. All pertinent labs and imaging results were reviewed and interpreted by me. The patient was updated regarding findings, and was re-assessed during ED stay. This patient's history and physical exam were performed by the resident. On 09/26/2023 I saw and examined the patient. I discussed the history and examination with the resident and agree with the plan of care. In addition, I have fully participated in the care of this patient. I have reviewed all pertinent clinical information, including history, physical exam and medical decision making with the resident. Critical care time: none *This note was transcribed using voice recognition software. While it has been carefully proofread,some errors may still be present Evan Burnham MD 09/26/23 70[address] [facility] Work Phone: [phone]) 165-341103-05-2024 Emergency department Note* Nela Blanco RN - 09/26/2023 9:42 PM EST Pt presents via ground transport as hemorrhagic stroke alert. LKW Monday evening. Patient developed dizziness without falls, no trauma. Patient reportedly has no deficits. Went to OSH today and was found to have R frontal ICH on imaging. Patient presents to [facility] alert, oriented. EM and Neurovasc teams present on arrival for evaluation. Gluc 87 [facility]03-05-2024 Emergency department Note* Connie Savage RN - 09/26/2023 9:41 PM EST Bed: E036 Expected date: Expected time: Means of arrival: Comments: Calixto-nih 0 [facility]03-05-2024 Physician Emergency department Note* Alfredo Zhao MD - 09/26/2023 9:38 PM EST DEPARTMENT OF EMERGENCY MEDICINE CHIEF COMPLAINT No chief complaint on file. HPI Good De Luna is a 58 y.o. male with history of cerebral palsy, hypothyroidism, prostate cancer whopresents as a transfer from an outside hospital as a level 2 hemorrhagic stroke alert. Brief History: Patient reports that he was usual state of health until this past Monday when he noted onset of dizziness/lightheadedness. He denies any room spinning. Denies any headache, numbness,tingling, weakness. He denies any head trauma, notes that he and his grandson do play a game where they bumped their heads together but states that this is not hard. He has not had any chest pain, shortness of breath, cough, sore throat, runny nose, fevers, chills, abdominal pain, nausea, vomiting,changes in bowel/bladder habits. LKW: 3d STATISTICAL TYPIST Deficits include: None Anticoagulation/Antiplatelets: None Prior strokes: No Blood glucose: Normal tPA given: No Outside hospital imaging findings if transferred: Impression/Summary CT Head without Contrast IPH CT Angio Brain/Neck Cavernoma, Congenital AVM REVIEW OF SYSTEMS Unable to obtain ROS secondary to acuity of patient's condition. PAST MEDICAL HISTORY No past medical history on file. SURGICAL HISTORY No past surgical history on file. CURRENT MEDICATIONS Current Facility-Administered Medications Medication Dose Route Frequency Provider Last Rate Last Admin Lidocaine 1% (PF) (XYLOCAINE MPF) 1 % injection 0.3 mL 0.3 mL Infiltration Once PRN Austin Day MD No current outpatient medications on file. ALLERGIES Not on File FAMILY HISTORY No family history on file. SOCIAL HISTORY Social History Socioeconomic History Marital status: Not on file Spouse name: Not on file Number of children: Not on file Years of education: Not on file Highest education level: Not on file Occupational History Not on file Tobacco Use Smoking status: Not on file Smokeless tobacco: Not on file Substance and Sexual Activity Alcohol use: Not on file Drug use: Not on file Sexual activity: Not on file Other Topics Concern Not on file Social History Narrative Not on file Social Determinants of Health Financial Resource Strain: Not on file Food Insecurity: Not on file Transportation Needs: Not on file Physical Activity: Not on file Stress: Not on file Social Connections: Not on file Intimate Partner Violence: Not on file Housing Stability: Not on file PHYSICAL EXAM There were no vitals taken for this visit. Physical Exam IMAGING CT STROKE HEAD-STROKE ALERT ONLY (Results Pending) CT ANGIO BRAIN/NECK (Results Pending) ED COURSE & MEDICAL DECISION MAKING Important diagnostic considerations include: ischemic stroke, hemorrhagic stroke, transient ischemic attack, hypoglycemia, electrolyte abnormality, infection, seizure, complex migraine with unilateral symptoms Initial Plan: Labs: POC glucose, CBC, Chem, LFTs, EKG, PT/INR Imaging: as above Therapeutic: [x] PRN Hydralazine & Labetalol [] Nicardipine gtt Goal systolic BP <140 Consultation: [x] Neurovascular [] Neurosurgery ED Course, Medications Given, MDM: Patient arrived via EMS as a stroke alert. Patient evaluated at the CT scanner by myself and neurovascular resident. The patient was found to be hemodynamically stable and protecting airway. 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 Will consult NSG. If they are not planning intervention, [facility] will take patinet on their service. ED Course as of 09/26/232223Sep 26, 20232217 Per Neuro: If NSGY isn't planning on any acute intervention or isn't planning on admitting, then he can come to [place] PCU under Dr. Dustin Arvizu Lidocaine 1% (PF) (XYLOCAINE MPF) 1 % injection 0.3 mL (has no administration in time range) Disposition: Admission, PCU level at least Medical Decision Making Amount and/or Complexity of Data Reviewed Labs: ordered. Radiology: ordered. ECG/medicine tests: ordered. Risk Prescription drug management. Alfredo Zhao MD This note was dictated using [employer] Dictation Software. Attempts at proofreading have been made, however errors may still occasionally occur. Alfredo Zhao MD Resident 09/26/232225 [facility] Work Phone: [phone] Emergency department Note* NYDIA Casper - 09/26/2023 9:31 PM EST ED SW responded to stroke alert. Pt is a transfer from [facility] . SW called and confirmed with OSH that family waspresent there and aware of transfer to [facility] ED. Patient Contacts (08/25) barbara De Luna Child [phone] Cee De Luna Child [phone] SW to remain available for any needs, once pt arrives to [facility] ED. ARMEN Minaya [phone] [facility]03-05-2024 Consult note* Keisha Alcantara MD - 09/26/2023 9:13 PM EST Neurovascular Evaluation Note Evaluation Date: 09/27/2023 Unit: [id number] Consultation was requested by Dr. Alejandro Pinon MD Patient status: Inpatient Length of stay: 0 days Reason for Consult/Chief Complaint Hemorrhagic stroke alert History of Present Illness Good De Luna is a 58 y.o. male with a history of cerebral palsy and hypothyroidism who presented on 09/26/2023 as a Level A Hemorrhagic Stroke Alert for R frontal IPH. A stroke alert was called for STAT consultation. LKW 3/. Since then, has been feeling foggy and lightheaded. No preceding falls or trauma. Outside hospital SBP 124, BG 118. Outside hospital NIH 0. Telestroke not done. Outside hospital CTH showed acute R frontal IPH. Outside hospital CT Angiography normal, no spot sign. No Lytics given due to bleed. No reversal agents given since not on any antithrombotics. Former tobacco user, quit in 07/2023. Drinks EtOH socially on occasion. No recreational drug use. Patient first presented to an [facility] ED facility: no Last Known Well: Date: 09/23/23 Review of Systems Review of systems not completed due to emergent condition. See HPI. Neurovascular-specific History / Information Home antiplatelet/anticoagulation therapy: Antiplatelet therapy: none Anticoagulation: none. Patient Current Risk Factors: Stroke risk factors include smoking. Prior stroke history: no. Family Hx of Stroke: Parents: no Siblings: no Stroke Diagnostic/Treatment Eligibility Information Did not receive TNK due to bleed. Stroke Clinical Assessment Information: NIHSS (Provider) Flowsheet Row First Filed Value Provider NIH Stroke Scale NIH Interval (Provider) daily filed on 09/26/20232139 NIH Level of Conciousness (Provider) 0 filed on 09/26/20232139 NIH LOC Questions (Provider) 0 filed on 09/26/20232139 NIH LOC Commands (Provider) 0 filed on 09/26/20232139 NIH Best Gaze (Provider) 0 filed on 09/26/2023 214 NIH Visual (Provider) 0 filed on 09/26/2023 214 NIH Facial Palsy (Provider) 0 filed on 09/26/2023 214 NIH Left Arm Motor (Provider) 0 filed on 09/26/2023 214 NIH Right Arm Motor (Provider) 0 filed on 09/26/2023 214 NIH Left Leg Motor (Provider) 0 filed on 09/26/2023 214 NIH Right Leg Motor (Provider) 0 filed on 09/26/2023 214 NIH Limb Ataxia (Provider) 0 filed on 09/26/2023 214 NIH Sensory (Provider) 0 filed on 09/26/2023 214 NIH Best Language (Provider) 0 filed on 09/26/2023 214 NIH Dysarthria (Provider) 0 filed on 09/26/20232139 NIH Extinction and Inattention (Provider) 0 filed on 09/26/20232139 NIH Total Score (Provider) 0 filed on 09/26/20232139 Is NIH=0 Within 180 min of Last Known Well Time? -- Stroke Scales Flowsheet Row Most Recent Value ICH Score (Calculated) 0 filed on 09/26/20232222 ICH Volume (ml) (Calculated Score) 10.92 filed on 09/26/20232222 NIH Total Score (Provider) 0 filed on 09/26/20232139 Past Medical History Medical History: Past Medical History: Diagnosis Date Cerebral palsy GERD (gastroesophageal reflux disease) Hypothyroidism Prostate CA SURGICAL HISTORY: No past surgical history on file. SOCIAL HISTORY: Social History Tobacco Use Smoking status: Former Current packs/day: 0.00 Types: Cigarettes Quit date: 07/30/2023 Years since quittin.1 Smokeless tobacco: Never Vaping Use Vaping status: Every Day Substance Use Topics Alcohol use: Yes Comment: 3-4 drinks/ week Drug use: Not Currently Medications PRIOR TO ARRIVAL MEDS: Prior to Admission medications Not on File Current Meds: Current Facility Administered Meds: Current Facility-Administered Medications Medication Dose Route Frequency Provider Last Rate Last Admin Acetaminophen (TYLENOL) tablet 325 mg 325 mg Oral Q4H PRN Keisha Alcantara MD Or Acetaminophen (TYLENOL) tablet 325 mg 325 mg Per NG tube Q4H PRN Keisha Alcantara MD Or Acetaminophen (TYLENOL) tablet 650 mg 650 mg Oral Q4H PRN Keisha Alcantara MD Or Acetaminophen (TYLENOL) tablet 650 mg 650 mg Per NG tube Q4H PRN Keisha Alcantara MD Acetaminophen (TYLENOL) tablet 975 mg 975 mg Oral Once Alfredo Zhao MD B Complex capsule 1 capsule 1 capsule Oral Daily Keisha Alcantara MD Citalopram (CELEXA) tablet 40 mg 40 mg Oral Daily Keisha Alcantara MD hydrALAZINE (APRESOLINE) injection 10 mg 10 mg Intravenous Q10 MIN PRN Alfredo Zhao MD hydrALAZINE (APRESOLINE) injection 10 mg 10 mg Intravenous Q1H PRN Keisha Alcantara MD Or hydrALAZINE (APRESOLINE) injection 20 mg 20 mg Intravenous Q1H PRN Keisha Alcantara MD Labetalol (NORMODYNE) injection 10 mg 10 mg Intravenous Q1H PRN Keisha Alcantara MD Or Labetalol (NORMODYNE) injection 20 mg 20 mg Intravenous Q1H PRN Keisha Alcantara MD Labetalol (NORMODYNE) injection 20 mg 20 mg Intravenous Q10 MIN PRN Alfredo Zhao MD Levothyroxine (SYNTHROID) tablet 175 mcg 175 mcg Oral Daily Keisha Alcantara MD lidocaine 4 % patch 1 patch 1 patch Transdermal Q24H Alfredo Zhao MD LORazepam (ATIVAN) tablet 2 mg 2 mg Oral Once Karan Marie MD Ondansetron 4mg/2ml (ZOFRAN) injection 4 mg 4 mg Intravenous Q6H PRN Keisha Alcantara MD Or Ondansetron (ZOFRAN) tablet 4 mg 4 mg Oral Q6H PRN Keisha Alcantara MD Pantoprazole (PROTONIX) tablet DR 40 mg 40 mg Oral Daily Keisha Alcantara MD Polyethylene glycol (MIRALAX) packet 17 g 17 g Oral Daily PRN Keisha Alcantara MD Or Polyethylene glycol (MIRALAX) packet 17 g 17 g Per NG tube Daily PRN Keisha Alcantara MD Senna (SENOKOT) tablet 8.6 mg 8.6 mg Oral Daily Keisha Alcantara MD Or Senna (SENOKOT) tablet 8.6 mg 8.6 mg Per NG tube Daily Keisha Alcantara MD sodium chloride 0.9% 1,000 ml with potassium chloride 20 mEq premix IV solution Intravenous Continuous Keisha Alcantara MD Current Outpatient Medications Medication Sig Dispense Refill levothyroxine 175 MCG tablet Take 1 tablet by mouth daily. Meclizine 25 MG tablet Take 1 tablet by mouth Every 8 hours as needed for Dizziness. omeprazole [address] capsule Take 1 capsule by mouth daily. Acetaminophen 325 MG tablet Take 1 tablet by mouth every 4 hours. B Complex Vitamins capsule Take 1 capsule by mouth daily. Citalopram 10 MG tablet Take 4 tablets by mouth daily. Ibuprofen 400 MG tablet Take 1 tablet by mouth every 6 hours as needed for Mild Pain. Scheduled Meds: Acetaminophen 975 mg Oral Once B Complex 1 capsule Oral Daily Citalopram 40 mg Oral Daily levothyroxine 175 mcg Oral Daily lidocaine 1 patch Transdermal Q24H LORazepam 2 mg Oral Once Pantoprazole 40 mg Oral Daily Senna 8.6 mg Oral Daily Or Senna 8.6 mg Per NG tube Daily Continuous Infusions: Sodium chloride 0.9% w/potassium cl PRN Meds:Acetaminophen OR Acetaminophen OR Acetaminophen OR Acetaminophen, hydrALAZINE,hydrALAZINE OR hydrALAZINE, Labetalol OR Labetalol, Labetalol, Ondansetron 4mg/2ml OR Ondansetron, Polyethylene glycol OR Polyethylene glycol Vitals Objective Findings: Vital Signs (24hrs): Temp: [98 F (36.7 C)] 98 F (36.7 C) Pulse (Heart Rate): [51-55] 55 Resp Rate: [14-25] 20 BP: (105-162)/(63-82) 107/67 O2 Sat (%): [95 %-99 %] 95 % Weight: [103.9 kg (229 lb 1.6 oz)] 103.9 kg (229 lb 1.6 oz) Body mass index is 38.12 kg/m . Lines/Drains/Airways/Wounds: Patient Lines/Drains/Airways Status Active Lines, Drains, Airways, & Wound Overview Name Placement date Placement time Site Days Peripheral IV Line - Single Lumen 09/26/232144 green median vein (underside of arm), left 18 gauge09/26/232144 -- less than 1 Physical Exam General: Laying comfortably in bed; in no acute distress. CV: RRR. Pulmonary: No increased work of breathing, equal chest rise bilaterally, no audible wheezing. Abdomen: soft, non-tender Ext: No cyanosis, edema, or deformity Skin: No rash Neurological Examination Psych and Mental status: alert; oriented to age and month; good attention Speech/language: fluent; comprehension intact; repetition intact Cranial nerves: CN II visual casillas full to confrontation without visual extinction CN III, IV, PERRL. EOMI. CN V facial sensation intact to light touch bilaterally in V1, V2, V3 CN VII face, smile, eyebrow raise/closure symmetric CN VIII hearing grossly intact to voice CN IX & X soft palate elevates symmetrically in the midline, no dysarthria CN XI shoulder shrug full strength bilaterally CNXII tongue protrudes midline Motor: Normal bulk and tone. Right Arm: no drift Left Arm: no drift Right Leg: no drift Left Leg: no drift Coordination: [id number] intact bilaterally. Sensation: intact to light touch throughout without extinction. Gait: not assessed. Laboratory Results Diagnostics/Procedures: Labs-CBC WBC/Hgb/Hct/Plts: 10.33/14.5/43.8/252 (09/25 2209) Labs-Chem 7([facility]) Bun/Creat/Cl/CO2/Glucose: 18/0.88/103/24/97 (09/25 2209) Na/K+/Phos/Mg/Ca: 135/4.1/3.4/1.9/9.5 (09/25 2209) Labs-Coags Ptt/Pt/Inr: 31.2/12.7/1.0 (09/25 2209) Additional Labs No results found for: CHOLESTEROL, TRIG, HDL, LDLCALC, LDLDIRECT Labs-Hemoglobin A1C No results found for: HGBA1C Imaging CT STROKE HEAD-STROKE ALERT ONLY Final Result IMPRESSION: 1. Anterior right frontal juxtacortical hyperdensity associated large draining vein. 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 The absence of adjacent edema suggests the presence of superimposed acute hemorrhage may be less likely, though characterization is limited in the absence of more remote comparison imaging. MR correlation is advised to more definitively characterize. Findings were discussed with Keisha Alcantara MD at 09/26/23 on 10:02PM. I personally viewed and interpreted these images and I have reviewed and approved this report. BRAIN WITH AND WITHOUT CONTRAST (Results Pending) CT HEAD WITHOUT CONTRAST (Results Pending) CT HEAD WITHOUT CONTRAST (Results Pending) Assessment/Impression Good De Luna is a 58 y.o. male with a history of cerebral palsy and hypothyroidism who presented on 09/26/2023 as a Level A Ischemic Stroke Alert for R frontal IPH. NIH 0. CTH shows R frontal hyperdensity concerning for bleed. CT Angiography shows concern for developmental venous anomaly with cavernoma, unable to rule out hemorrhage. No Lytics or reversal agentsgiven. Plan -Please admit to neurovascular service PCU, attending Dr. Chan. A hemorrhagic stroke order set has been signed and held. ICH score 0 -Neurosurgery consulted. Appreciate recommendations -Check PT/INR/PTT and reverse any coagulopathy -Blood pressure goals with SBP less than 140 -Repeat a head CT [address] -Vital signs and neuro assessments q2h -No anticoagulation, antiplatelet therapy and pharmacological DVT prophylaxis until a follow up head CT/MRI has been completed to ensure stability of hemorrhage -Obtain brain MRI with and without contrast unless contraindicated -Swallow evaluation prior to any oral intake -ECHO to evaluate cardiac function -Lipid panel, LFTs and HgbA1c to evaluate secondary risk factors -Baseline EKG, if not done in ED. Continuous telemetry -PT, OT, Speech and social media analyst consults Other problems: Complexity. Obesity Body mass index is 38.12 kg/m . - Follow with PCP for dietary and lifestyle modifications. Hypothyroidism - Continue thyroid replacement Other medical problems: GERD: Continue home PPI Hypothyroidism: continue home synthroid 175 daily Depression: continue home celexa 40mg daily Code Status: Full Code DVT prophylaxis: SCDs Diet: DIET NPO WITHOUT meds This plan has been discussed with stroke fellow Dr. Ibanez and has been communicated to ED team. Plans are preliminary until note is cosigned and attested by consulting attending physician. Please see final attending physician attestation for final recommendations. If you have any further questions, please contact the on-call resident or TABITHA listed on [email or web address].The author of this note does not necessarily reflect the individual field artillery operations specialist. Please page with urgent questions, as [employer] Secure Chat is not a reliable method for urgent needs. Signed, Keisha Alcantara MD Neurology [facility] Work Phone: [phone] Miscellaneous Notes* Telephone Encounter - Ross Roldan LPN - 09/15/2023 8:27 AM EST Patient notified of results, verbalizes understanding of instructions. Ross Roldan LPN * Telephone Encounter - Gypsy Syed APRN.REBRANDER - 09/15/2023 7:33 AM EST Can you please call the patient and let him know that I reviewed his lab results. Vitamin D, B12, and folate were normal. TSH was elevated, I would recommend increasing Synthroid to175 mcg. Recheck labs in 8 weeks. Prescription was sent to [facility] in [place]. Please let me know if he has any questions. Thank you. The following approved medication requests have been transmitted electronically. Requested Prescriptions Signed Prescriptions Disp Refills levothyroxine (SYNTHROID) 175 mcg tablet 30 tablet 11 Sig: Take 1 tablet by mouth once daily. Take on empty stomach. For Thyroid. Authorizing Provider: GYPSY SYED APRN.CNP documented in this encounterFostoria City Hospital02-22-2024 History of Present illness Narrative* Gypsy Syed APRN.CNP - 09/14/2023 12:40 PM EST This is a 58 year old male who presents today with: Patient presents with: Acute Visit: trouble sleeping /problems with c-pap HISTORY OF PRESENT ILLNESS: Good De Luna is a 58 year old male. Patient presents with: Acute Visit: trouble sleeping /problems with c-pap Here in the office for difficulty sleeping and JODEE. Refers that he was told he has been snoring andmay have had an apneic episode. Compliant with CPAP. Has been waking up not feeling refreshed. Someday time sleepiness, needs a nap in the afternoon. Has been using the CPAP for about 15 years. Ear Fullness bilaterally, started last week. No pain or difficulty hearing. Ongoing brain fog. History of hypothyroidism. Last TSH was mildly elevated. Difficulty focusing. Would like some labs if possible. PAST MEDICAL HISTORY: PAST MEDICAL HISTORY Diagnosis Date Anxiety state, unspecified Arthritis Cancer (HCC) Cerebral palsy (HCC) Congenital diplegia (HCC) GERD (gastroesophageal reflux disease) JODEE on CPAP Sleep apnea 09/22/2008 Spinal stenosis Unspecified hypothyroidism PAST SURGICAL HISTORY Procedure Laterality Date TONSILLECTOMY HX TONSILLECTOMY PRIMARY/SECONDARY <AGE 14 Tonsillectomy ALLERGIES Patient has no known allergies. MEDICATIONS Current Outpatient Medications Medication Sig docosahexaenoic acid/epa (FISH OIL CONCENTRATE ORAL) Take 1 capsule by mouth once daily. benzonatate (TESSALON PERLE) 100 mg capsule Take 2 capsules by mouth three times a day as needed. predniSONE (DELTASONE) 20 mg tablet Take 1 tablet by mouth once daily. LORazepam (ATIVAN) 0.5 mg Take 1 tablet by mouth at bedtime as needed for up to 90 days. citalopram (CELEXA) 40 mg tablet Take 1 tablet by mouth once daily. levothyroxine (SYNTHROID) 150 mcg tablet take 1 tablet by mouth once daily on an empty stomach cholecalciferol, Vitamin D3, (VITAMIN D3) 1,250 mcg (50,000 unit) cap capsule Take 1 capsule by mouth one time a week. omeprazole (PRILOSEC) 20 mg capsule Take 1 capsule by mouth once daily. CPAP Initiate CPAP @ 7 cm of water with humidification. Mask (per patient preference) optional chinstrap (if indicated) , filters, tubing, humidifier and lifetime supplies. multivit-min/folic/vit K/lycop (MEN'S 50 PLUS MULTIVITAMIN ORAL) Take 1 tablet by mouth once daily. vitamin b complex capsule Take 1 capsule by mouth once daily. iv contrast (will be provided with radiology test) MRI Prostate Inject, intravenously, once for 1 dose. No IV access, insert saline lock prior to the beginning of sedation, infusion, injection of imaging exam. Discontinue saline lock post exam. If Pt. has a central line or IVAD, may access for administration according to line specific nursing protocol. Once exam is complete flush line and de-access according to line specific nursing protocol in the MR contrast administration guidelines link. No current facility-administered medications for this visit. FAMILY HISTORY Adopted: Yes Problem Relation Age of Onset Diabetes Mother Thyroid Maternal Grandmother Social History Tobacco Use Smoking status: Former Packs/day: 1.00 Years: 30.00 Additional pack years: 0.00 Total pack years: 30.00 Types: Cigarettes Quit date: 07/29/2023 Years since quittin.1 Smokeless tobacco: Never Tobacco comments: Pt has cut back to 1/4 pack daily. Vaping Use Vaping Use: Never used Substance Use Topics Alcohol use: Yes Comment: 3/4 beers daily sometimes Drug use: No REVIEW OF SYSTEMS GENERAL: + Fatigue/Day Time Sleepiness HEENT: + Bilateral ear fullness NECK: Negative for lumps, goiter, pain and significant neck swelling RESPIRATORY: Negative for cough, hemoptysis, wheezing, dyspnea or shortness of breath CARDIOVASCULAR: Negative for chest pain, leg swelling, orthopnea, or palpitations GI: No nausea, vomiting, or diarrhea/constipation. No hematochezia/melena. No heartburn or reflux symptoms. : No history of dysuria, frequency or incontinence MUSCULOSKELETAL: Negative for joint pain or swelling. SKIN: Negative for lesions, rash, and itching ENDOCRINE: Negative for cold or heat intolerance, polyuria, polydipsia and goiter NEURO: No history of headaches, syncope, paralysis, seizures or tremors + Brain Fog MOOD: Negative for depression, anxiety, or suicidal ideation. EXAM: BP 112/68 Pulse 64 Resp 16 Wt 100.2 kg (221 lb) SpO2 97% BMI 36.78 kg/m PHYSICAL EXAM: General Appearance: Well appearing, alert, in no acute distress, well-hydrated, well nourished. Skin: Skin color, texture, turgor normal, no suspicious rashes or lesions. Head: Normocephalic, no masses, lesions, tenderness or abnormalities. Eyes: Anicteric sclera. Extraocular movements are intact. Ears: External ears normal, canals clear, Positive findings: Large amounts of cerumen noted bilaterally. Attempted ear lavage without success. Unable to visualize TMs. Lungs: Lungs clear to auscultation. No wheezing, rhonchi, rales. Heart: RRR without murmur, gallop, or rubs. No ectopy. Extremities: No deformities, edema, skin discoloration, clubbing or cyanosis. Good capillary refill. Peripheral Pulses: Normal, Capillary refill <2secs, strong peripheral pulses, Pulses palpable. Neurologic: Using a cane. Sensation grossly intact. ASSESSMENT/PLAN: 1. JODEE (obstructive sleep apnea) - ICD9: 327.23, ICD10: G47.33 (primary diagnosis) - Recommend consult sleep medicine. - Will need a titration study. - CONSULT TO SLEEP MEDICINE - ADULT 2. Bilateral impacted cerumen - ICD9: 380.4, ICD10: H61.23 - Use Debrox eardrops in ears bilaterally for the next 5 to 7 days. -Follow-up in the office for repeat lavage. - DEBROX 6.5 % EAR DROPS 3. Brain fog - ICD9: 799.59, ICD10: R41.89 - COMP METABOLIC PANEL - VITAMIN B12 BLOOD - FOLATE SERUM - CBC + DIFF 4. Hypothyroidism, unspecified type - ICD9: 244.9, ICD10: E03.9 - TSH BLD - T4 FREE/FREE THYROX 5. Vitamin D deficiency - ICD9: 268.9, ICD10: E55.9 - VITAMIN D 25 HYDROXY Follow-up pending lab results or sooner as needed. Discussed treatment plan and patient voices understanding. Patient's questions answered appropriately. Medications and potential side effects were discussed and patient voices understanding. Gypsy Syed APRN.CNP This note was partially generated using [employer] voice recognition system. Note was reviewed for accuracy. There may be minor misspellings or grammar miscues with [employer] voice recognition. documented in this encounterFostoria City Hospital02-22-2024 Instructions* Patient Instructions* Gypsy Syed APRN.CNP - 09/14/2023 12:40 PM EST Get labs completed Recommend consult with Sleep Medicine to discuss CPAP/ Sleep Apnea, Dr. Luna Unable to remove ear wax, recommend using Debrox ear drops twice daily for 5-7 days May follow up in the office for repeat ear flushing. Following up pending test results or sooner as needed. documented in this encounterFostoria City Hospital02-02-2024 Miscellaneous Notes* Telephone Encounter - Laura Whaley Ma - 08/25/2023 11:39 AM EST Faxed. Laura Whaley Ma * Telephone Encounter - Mathew Cobian MD - 08/25/2023 11:34 AM EST Form done Mathew Cobian MD * Telephone Encounter - Mick Youngblood Ma - 08/25/2023 11:04 AM EST Type of form: Rx Request for Grab Bar, from [employer] Form received via fax When form is completed, Fax form to [phone] Form has been forwarded to Physician Desk: Dr. Mango Youngblood Ma documented in this encounterFostoria City Hospital02-02-2024 Miscellaneous Notes* Telephone Encounter - Mathew Cobian MD - 08/25/2023 11:36 AM EST Done in / phone note Mathew Cobian MD * Telephone Encounter - Mick Youngblood Ma - 08/17/2023 9:14 AM EST Office received form from [facility] [employer]. Member requesting a Grab bar. They are requesting an Rx for this item and recent OV notes. Printed recent OV notes with Brian Ahmadi CNP on 07/14/23. Please print Rx for Grab Bar. Once completed will fax back to [phone]. Mick Youngblood Ma documented in this encounterFostoria City Hospital01-08-2024 History of Present illness Narrative* Claire Larsno RT(R) - 07/31/2023 1:20 PM EST Radiology Service Progress Note PATIENT NAME: Good De Luna DATE OF SERVICE: July 31, 2023 TIME: 1:17 PM PATIENT IDENTITY VERIFICATION COMPLETED USING TWO (2) IDENTIFIERS: Name and Date of confirmedby patient verbally. FALL SCREENING: Has the patient had 2 falls in the last year or 1 fall with injury or currently using an Ambulatory Assistive Device (Walker, Cane, Wheelchair, Crutches, etc.)? Yes, Patient High Riskfor Falls What interventions were put in place to prevent falls during this visit? Offered Assistance with Transfers/Clothing and Instructed Patient to Remain Seated (Not on Exam Table) Until Exam PATIENT GENDER DATA: Male PATIENT RELEVANT IMPLANT DATA REVIEWED: Not Applicable RADIOLOGY DEPARTMENT: General X-ray: Exam(s) Completed: Chest X-Ray PERIPHERAL IV DATA: Not applicable SIGNED BY: RT Jonathan(R) July 31, 2023 1:17 PM documented in this encounterFostoria City Hospital11-22-2023 Miscellaneous Notes* Telephone Encounter - Brian Ahmadi APRN.CNP - 06/14/2023 11:04 AM EST The following approved medication requests have been transmitted electronically. Requested Prescriptions Pending Prescriptions Disp Refills levothyroxine (SYNTHROID) 150 mcg tablet [Pharmacy Med Name: LEVOTHYROXINE 150 MCG TABLET] 90 tablet 1 Sig: take 1 tablet by mouth once daily on an empty stomach Brian Ahmadi APRN.PATTIE * Telephone Encounter - Levi Paniagua LPN - 06/14/2023 10:58 AM EST Last refill 12/20/22 Qty: 90 with 1 refill GUILHERME 12/20/22 NOV none scheduled. Pt no showed appointment 02/14/23 Levi Paniagua LPN documented in this encounterFostoria City Hospital09-25-2023 Miscellaneous Notes* Telephone Encounter - Laura Whaley Ma - 04/17/2023 1:14 PM EDT Office received fax from [facility] Dr. Conklin's office notifying officethat pt will not be accepted or seen by their office due to pt have to many no shows and cancellations. Laura Whaley Ma documented in this encounterFostoria City Hospital09-24-2023 Miscellaneous Notes* Telephone Encounter - Zoë Miller MA - 04/16/2023 7:50 AM EDT Patient has viewed results via [employer]. Zoë Miller MA * Telephone Encounter - Zoë Miller MA - 04/14/2023 7:39 AM EDT Left VM instructing patient to return call to receive results. Zoë Miller MA * Telephone Encounter - Abbe Adame APRN.CNP - 04/14/2023 7:19 AM EDT No significant growth continue treatment plan as discussed with provider. If symptoms worsen pleasefollow up with your primary care provider. documented in this encounterFostoria City Hospital09-20-2023 History of Present illness Narrative* Abbe Adame APRN.CNP - 04/12/2023 7:36 PM EDT CC: Patient presents with: UTI: Frequency, burning, incontinence x 1 day HPI Good De Luna is a 57 year old male who presents with complaint of possible UTI. These symptoms have been present for 1 days. Associated symptoms: feels like peeing razor blades Denies: fever, chills, sweats, abdominal pain, flank pain, and no discharge Treatments: nothing The ROS was otherwise negative. PMH, Medications, labs, allergies, and recent past visits with PCP were reviewed and updated as able. PHYSICAL EXAM: BP 114/72 Pulse 85 Temp 37.4 C (99.3 F) Resp 21 Wt 105.5 kg (232 lb 9.6 oz) SpO2 98% BMI 38.71 kg/m General: Well appearing and alert CV: Regular rate and rhythm without obvious murmur Lungs: clear to auscultation bilaterally Back: straight and symmetric Abdomen: soft, nontender, nondistended PAST MEDICAL HISTORY Diagnosis Date Anxiety state, unspecified Arthritis Cancer (HCC) Cerebral palsy (HCC) Congenital diplegia (HCC) GERD (gastroesophageal reflux disease) JODEE on CPAP Spinal stenosis Unspecified hypothyroidism PAST SURGICAL HISTORY Procedure Laterality Date TONSILLECTOMY HX TONSILLECTOMY PRIMARY/SECONDARY <AGE 14 Tonsillectomy ALLERGIES Patient has no known allergies. MEDICATIONS LORazepam (ATIVAN) 0.5 mg Take 0.5 mg by mouth at bedtime as needed. cholecalciferol, Vitamin D3, (VITAMIN D3) 1,250 mcg (50,000 unit) cap capsule Take 1 capsule by mouth one time a week. levothyroxine (SYNTHROID) 150 mcg tablet Take 1 tablet by mouth once daily. Take on empty stomach. For Thyroid. buPROPion XL (WELLBUTRIN XL) 150 mg 24 hr tablet Take 1 tablet by mouth once daily. omeprazole (PRILOSEC) 20 mg capsule Take 1 capsule by mouth once daily. citalopram (CELEXA) 40 mg tablet Take 1 tablet by mouth once daily. CPAP Initiate CPAP @ 7 cm of water with humidification. Mask (per patient preference) optional chinstrap (if indicated) , filters, tubing, humidifier and lifetime supplies. multivit-min/folic/vit K/lycop (MEN'S 50 PLUS MULTIVITAMIN ORAL) Take 1 tablet by mouth once daily. vitamin b complex capsule Take 1 capsule by mouth once daily. CPAP Mask (per patient preference) optional chin strap (if indicated) , filters, tubing, humidifierand lifetime supplies. iv contrast (will be provided with radiology test) MRI Prostate Inject, intravenously, once for 1 dose. No IV access, insert saline lock prior to the beginning of sedation, infusion, injection of imaging exam. Discontinue saline lock post exam. If Pt. has a central line or IVAD, may access for administration according to line specific nursing protocol. Once exam is complete flush line and de-access according to line specific nursing protocol in the MR contrast administration guidelines link. CPAP Initiate CPAP @ 7 cm of water with humidification. Mask (per patient preference) optional chinstrap (if indicated) , filters, tubing, humidifier and lifetime supplies. FAMILY HISTORY Adopted: Yes Problem Relation Age of Onset Diabetes Mother Thyroid Maternal Grandmother Social History Tobacco Use Smoking status: Every Day Packs/day: 1.00 Years: 30.00 Additional pack years: 0.00 Total pack years: 30.00 Types: Cigarettes Smokeless tobacco: Never Tobacco comments: Pt has cut back to 1/4 pack daily. Vaping Use Vaping Use: Never used Substance Use Topics Alcohol use: Yes Comment: 3/4 beers daily sometimes Drug use: No ASSESSMENT/PLAN: 1. Urinary frequency - ICD9: 788.41, ICD10: R35.0 (primary diagnosis) - UA DIP, URINE (POC) - URINE CULTURE 2. Prostatitis, acute - ICD9: 601.0, ICD10: N41.0 - SULFAMETHOXAZOLE 800 MG-TRIMETHOPRIM 160 MG TABLET Prescription instructions reviewed with patient as applicable. Potential red flag symptoms discussed with the patient. Reviewed appropriate action plan to take if red flag symptoms occur. Patient agreeable to treatment plan. Abbe Adame APRN.REBRANDER documented in this encounterFostoria City Hospital09-20-2023 Miscellaneous Notes* Telephone Encounter - Ashlyn London RN - 04/12/2023 11:13 AM EDT Patient reports he has UTI. Reports he is having burning w/urination, feels like full bladder but hardly anything comes out, urgency, frequency, since last night. Patient unsure if he can find ride into clinic, but agreeable to try, and will go to for evaluation. documented in this encounterFostoria City Hospital09-06-2023 History of Present illness Narrative* Calli Morris - 03/29/2023 12:34 PM EDT POPULATION HEALTH NAVIGATION OUTREACH Action/FYI [place] Support: Called pt to schedule an appt in Pain Management. Lvm for pt to call [phone] for scheduling. Patient Identified by Name and : NO Outreach Outcome/Action Unable to reach patient: Left message Did you use a PCP flex slot to schedule this appointment? No Reason for Outreach Care Gap or Scheduling/Wellness visits Payer: Payor: MEDICARE / Plan: MEDICARE A AND B / Product Type: Medicare / Care Gap Reviewed:: Specialty Scheduling Reminder: Reminder note to check Health Maintenance for items below Health Maintenance items due: HEPATITIS B(1 of 3 - 3-dose series) Never done PNEUMOCOCCAL(1 - PCV) Never done HIV SCREENING Never done COLORECTAL CANCER SCREENING Never done SHINGRIX VACCINE(1 of 2) Never done COVID-19 VACCINE(4 - Pfizer series) due on 08/24/2021 LIPID SCREEN due on 06/07/2022 LUNG CANCER SCREENING due on 06/08/2022 DEPRESSION ASSESSMENT Never done INFLUENZA(1) due on 03/24/2023 Navigation Signature: Calli Morris March 29, 2023 12:34 PM documented in this encounterFostoria City Hospital08-24-2023 Miscellaneous Notes* Telephone Encounter - Laura Whaley Ma - 03/16/2023 4:53 PM EDT Referral, demo, insurance card, OV note, med list, imaging faxed to Dr. Conklin's office. Pt notified that he can call them and schedule. Laura Whaley Ma * Telephone Encounter - Mathew Cobian MD - 03/16/2023 3:14 PM EDT OK to refer as requested Mathew Cobian MD * Telephone Encounter - Uma Jett RN - 03/16/2023 11:19 AM EDT Patient calling and is asking if provider can place a pain management referral for back pain. Patient states that he would like to go and see Dr. Conklin. Please review and advise, Uma Jett RN documented in this encounterFostoria City Hospital08-24-2023 Discharge summary Author Davy Turner [facility] March 16, 2023 1:25pm Note Date/Time March 16, 2023 1: 25pm [facility] Physical Therapy [facility] [address] [place] [address] / REHABILITATION SERVICES DISCHARGE SUMMARY MR#: [id number] Acct: [id number] Name: GOOD DE LUNA Rep #: [id number] : 1965 57 From: Davy Turner DPT, OCS, CSCS Referring Dr.: Dr. Mathew Cobian MD Status: REG RCR Insurance: MEDICARE PART A B [facility] Discharge Summary D/C summary: It has been my pleasure to treat GOOD DE LUNA referred by Dr. Mathew Cobian MD, with the diagnosis of CP, spinal stenosis for a total of 17 visit(s). Discharge Date: 03/16/23 Please see the following information for a summary of their discharge status. Subjective Subjective: I'm in pain. Might be the weather. 8/10 in [place], has pain managementreferral to / [facility] for this. Exercises going well , some days tougher usually based on flexibility or pain. Has not started once per week on own yet. Will have private hourly sessions fortraining. Pain LB: Pain Intensity (Out of 10): 8 Overall Improvement % Improvement: 75 Objective Objective/Function: Walking with stiff legs with wh walker I, bends knees well when cued. L ankle weak eversion. tightness obvious in adductors and HS(spasticity). appropriate to cotninue gyma dn home stretches on own and seeking pain doctor update from dr. Cobian. Goals Goal 1:: I appropriate gym strength of core and LE adn home stretching for psoas, quad, HS, gastroc and piriformis.(may have help of dtr) Goal Progress: Goal Met Goal 2:: Pt feel 50% better in overall mobility Goal Progress: 75% better PT days. Goal 3:: LEFS score 35 Goal Progress: NT Goal 4:: I standing tramp ball toss ex for HEP I aggressive home stretches I gym based strength Goal Progress: Goal Met, outside of tram Plan Plan: d/c D/C Information Discharge Comments: D/C to I gym, home stretches, will sign up as member and gettrainer. d/c sentence: If there are questions or concerns regarding this patient's physical therapy, please feel free to call me at [phone]. Thank you for the referral of thispatient. Sincerely, Davy Turner, DPT, OCS, CSCS Balance/Gait/Functional tests Balance/Special Test Scores Lower Extremity Functional Score: 28 Improvement % Improvement: 75 <Electronically signed by Davy Turner DPT, OCS, CSCS> 03/16/23 1325 CC: Dr. Mathew Cobian MD ~ EBG Signed [facility] Work Phone: 1(378) 492-983307-01-2023 Miscellaneous Notes* Telephone Encounter - Laura Whaley Ma - 01/21/2023 8:17 AM EDT Faxed. Laura Whaley Ma * Telephone Encounter - Mathew Cobian MD - 01/20/2023 5:13 PM EDT Form and letter done Mathew Cobian MD * Telephone Encounter - Mick Youngblood Ma - 01/12/2023 1:35 PM EDT Type of form: [employer]ness Membership [employer] from [employer] (see note on fax) Form received via fax When form is completed, Fax form to [phone] Form has been forwarded to Physician Desk: Dr. Cobian They are requesting letter as well. Mick Youngblood Ma * Telephone Encounter - Arlene Trammell LPN - 01/11/2023 12:34 PM EDT Pt called and the letter he is referring to is from 10-07-21 what was sent to [facility]. Pt had paid [facility] for 6 sessions that he has not been able to do and now if feels he can do. Again the letter is to [facility] thru [facility]. Please advise pt thru MyChart or phone. Arlene Trammell LPN documented in this encounterFostoria City Hospital06-12-2023 Miscellaneous Notes* Telephone Encounter - Mick Youngblood Ma - 01/02/2023 8:12 AM EDT Letter mailed to pt notifying him we've attempted to reach him by phone and mychart regarding letter. Asked for call back and to speak with FM Triage Nurse. Mick Youngblood Ma * Telephone Encounter - Mick Youngblood Ma - 12/27/2022 1:43 PM EDT Mychart message sent to pt notifying him we've attempted to reach him by phone with message left toreturn call to office. Asked pt to return call to office and speak with FM Triage Nurse regarding letter. Please review messages below from PCP (starting from beginning), relay to pt. Mick Youngblood Ma * Telephone Encounter - Mick Youngblood Ma - 12/23/2022 12:40 PM EDT Called and left message on patients voicemail to return call to the office and ask to speak with a FM triage nurse. Please review first message written below from PCP. Mick Youngblood Ma * Telephone Encounter - Mathew Cobian MD - 12/23/2022 11:09 AM EDT The 10/12 letter was that he was able to resume exercising, not that he had sessions that he had paid for but not attended. Mathew Cobian MD * Telephone Encounter - Mick Youngblood Ma - 12/22/2022 5:18 PM EDT See TE and letter from 10/06/21. It looks like this was something related to the Covid pandemic. No other letter written other then for a pet. Letter/recommendation from PCP in 2016 when pt got anOVI to continue driving privileges. Letter to continue his [employer] membership to maintain fitness. Mick Youngblood Ma * Telephone Encounter - Mathew Cobian MD - 12/22/2022 4:32 PM EDT I do not understand - what kind of sessions had he paid for, and why was he not able to use them? And when would I have written a letter; I do not see anything in the past like this? Mathew Cobian MD * Telephone Encounter - Sofia Diaz Pss - 12/21/2022 2:43 PM EDT Jaquan is calling to ask Dr. Cobian to write a letter for [facility] regarding sessions he paid for and was unable to keep for health reasons. Jaquan states that Dr. Chawla has done this for him before. Please call Jaquan when created at [phone] documented in this encounterFostoria City Hospital05-30-2023 History of Present illness Narrative* Brian Ahmadi APRN.REBRANDER - 12/20/2022 10:20 AM EDT Chief Complaint Patient presents with: Follow Up HPI Good De Luna is a 57 year old male who presents here today for Chronic Medical Conditions. follow up for GERD, anxiety, cerebral palsy, hypothyroidism. Patient here with family member. Patient positioned in wheelchair. HYPOTHYROID: Patient is compliant with medications: Yes. TSH is suppressed. Patient has changes in energy: No Patient has changes in hair or skin: Yes Patient has temperature intolerance: No Patient has weight changes: No GERD: Patient takes: omeprazole 20 mg Heartburn is controlled: Yes. Bloody or black stools: No. Bowel changes: No. Taking prescribed Celexa 40 mg daily. Also using Ativan as prescribed for anxiety. Patient states that depression is worse. All of his family members have moved out of the household. Finds it difficult to cook for self. Does find himself consuming more alcohol in the evening times. Would like to cut back. Using a CPAP. Gets benefit. Has to use nightly. Vitamin D level is low. He is not on any replacement at this time. Past medical history, appointments, medications, allergies reviewed. EXAM: BP 128/82 Pulse 61 Resp 16 Wt 100.6 kg (221 lb 12.8 oz) SpO2 96% BMI 36.91 kg/m General Appearance: Well appearing, alert, in no acute distress, well-hydrated, well nourished.. Neck: Supple, no adenopathy; thyroid symmetric, normal size, no bruits. Lungs: Lungs clear to auscultation. No wheezing, rhonchi, rales.. Heart: RRR without murmur, gallop, or rubs. No ectopy. Component Latest Ref Rng & Units 12/14/2022 Protein, Total 6.3 - 8.0 g/dL 7.2 Albumin 3.9 - 4.9 g/dL 4.3 Calcium 8.5 - 10.2 mg/dL 9.5 Bilirubin, Total 0.2 - 1.3 mg/dL 0.4 Alkaline Phosphatase 38 - 113 U/L 91 AST 14 - 40 U/L 40 ALT 10 - 54 U/L 53 Glucose 74 - 99 mg/dL 100 (H) BUN 9 - 24 mg/dL 10 Creatinine 0.73 - 1.22 mg/dL 0.88 Sodium 136 - 144 mmol/L 136 Potassium 3.7 - 5.1 mmol/L 4.7 Chloride 97 - 105 mmol/L 102 CO2 22 - 30 mmol/L 22 Anion Gap 9 - 18 mmol/L 12 eGFR >=60 mL/min/1.73m 102 WBC 3.70 - 11.00 k/uL 10.67 RBC 4.20 - 6.00 m/uL 4.93 Hemoglobin 13.0 - 17.0 g/dL 15.9 Hematocrit 39.0 - 51.0 % 47.4 MCV 80.0 - 100.0 fL 96.1 MCH 26.0 - 34.0 pg 32.3 MCHC 30.5 - 36.0 g/dL 33.5 RDW-CV 11.5 - 15.0 % 13.0 Platelet Count 150 - 400 k/uL 223 MPV 9.0 - 12.7 fL 11.9 Absolute nRBC <0.01 k/uL <0.01 Vitamin D 25 Hydroxy 31.0 - 80.0 ng/mL 14.1 (L) TSH 0.270 - 4.200 mIU/L 0.198 (L) PSA <2.60 ng/mL 1.42 ASSESSMENT/PLAN: 1. Cerebral palsy, unspecified type (HCC) - ICD9: 343.9, ICD10: G80.9 (primary diagnosis) 2. Congenital diplegia (HCC) - ICD9: 343.0, ICD10: G80.8 3. Hypothyroidism, unspecified type - ICD9: 244.9, ICD10: E03.9 Discussed with patient that his thyroid is over replaced. Decrease levothyroxine to 150 mcg daily. Repeat TSH in 2 months. - TSH BLD 4. GERD without esophagitis - ICD9: 530.81, ICD10: K21.9 Stable continue omeprazole - OMEPRAZOLE 20 MG CAPSULE,DELAYED RELEASE 5. Anxiety - ICD9: 300.00, ICD10: F41.9 Stable with as needed use. - LORAZEPAM 0.5 MG TABLET 6. JODEE (obstructive sleep apnea) - ICD9: 327.23, ICD10: G47.33 -Continue with use of CPAP 7. Prostate cancer (HCC) - ICD9: 185, ICD10: C61 continue to follow with urology PSA is normal 8. Vitamin D deficiency - ICD9: 268.9, ICD10: E55.9 -Replace with vitamin D 50,000 units weekly - CHOLECALCIFEROL (VITAMIN D3) 1,250 MCG (50,000 UNIT) CAPSULE - VITAMIN D 25 HYDROXY 9. Recurrent major depressive disorder, remission status unspecified (HCC) - ICD9: 296.30, ICD10: F33.9 -Ongoing. Continue with Celexa. Discussed long-term effects of alcohol intake and its effect on moods. Start Wellbutrin once daily. Follow-up in 2 months - BUPROPION XL 150 MG TAB Brian Ahmadi APRN.CNP RTO in 2 months, sooner if needed. This note was partly generated using [employer] voice recognition dictation and may contain some misspelled or inaccurate words missed on review. documented in this encounterFostoria City Hospital05-04-2023 Miscellaneous Notes* Telephone Encounter - Laura Whaley Ma - 11/24/2022 2:35 PM EDT Form faxed back. Laura Whaley Ma * Telephone Encounter - Laura Whaley Ma - 11/24/2022 2:34 PM EDT Type of letter/form/fax request - Medical Necessity-CPAP supplies Form received from on fax floor and placed on MD desk (Dr. Cobian) for completion. Completed form needs to be faxed to [facility] at [phone]. [facility] to [facility] when form completed for processing documented in this encounterFostoria City Hospital04-24-2023 Miscellaneous Notes* Addendum Note - Mathew Cobian MD - 11/14/2022 6:44 PM EDTAddended by: MATHEW COBIAN on: 11/14/2022 06:44 PM Modules accepted: Orders * Telephone Encounter - Mathew Cobian MD - 11/14/2022 6:43 PM EDT Labs ordered Mathew Cobian MD * Telephone Encounter - Arlene Trammell LPN - 11/14/2022 5:05 PM EDT Closed note before this was sent to provider. Arlene Trammell LPN * Telephone Encounter - Arlene Trammell LPN - 11/14/2022 5:00 PM EDT Pt called and he has not been taking Vit D3 for at least 3 months. He is asking if he needs lab work done to see where he is on this. Also he just started on Vit B Complex a couple days ago. Asking if he needs his thiamine checked. He used to drink a lot and wondering if this needs checked or anything else you feel needs checked. He drinks 3 to 4 beers a day. This is like drinking pop for him. Pt is disabled. Pt concerned with alcohol dementia. Please advise pt. Arlene Trammell LPN documented in this encounterFostoria City Hospital02-24-2023 Miscellaneous Notes* Telephone Encounter - Tyra Yung LPN - 09/16/2022 5:13 PM EST Patient notified. Tyra Yung LPN * Telephone Encounter - Hardik Spain DO - 09/16/2022 4:55 PM EST He will need to discuss refills with his PCP since there is no current need for follow up here. Thebone lesion in question was biopsied in June 2021 and was negative for cancer. Subsequent follow-up x-rays in December and March last year showed stable findings. Hardik Spain DO * Telephone Encounter - Tyra Yung LPN - 09/16/2022 4:29 PM EST Patient last seen here 01/14/2022- Plan: -He will be contacted with the official radiology results of the plain film from today. -Otherwise repeat in about 3 to 4 months. If stable then stop monitoring. -He will follow up with Dr. Sibley for monitoring of the prostate cancer. Xrays stable 12/2021 and 03/2022. Phone visit for xray results 04/20/2022? Patient also had a phone visit with Dr. Sibley 04/19/2022- plan to repeat PSA in September or October 2022. Patient not on current treatment and does not currently have any follow up scheduled here. Patient states he keeps seeing commercials for prostate cancer medication and it gives him anxiety.Asking for a refill of lorazepam. Also asking when he should follow up here. Tyra Yung LPN * Telephone Encounter - aMya Naylor Pss - 09/16/2022 3:54 PM EST Patient calling requesting refill of Ativan he has 10 pills left from 6 months ago Patient uses pharmacy on file. [facility]. Patient would like a phone call to discuss commercial about a new medicine on market for Prostate Cancer Also when should patient follow up? documented in this encounterFostoria City Hospital12-30-2022 Miscellaneous Notes* Telephone Encounter - Mathew Cobian MD - 07/22/2022 5:01 PM EST OK to refill as ordered Mathew Cobian MD * Telephone Encounter - Mick Youngblood Ma - 07/22/2022 4:56 PM EST Last OV: 06/07/22 Next OV: None Last Rx: 11/26/21 #90 w/1. Mick Youngblood Ma * Telephone Encounter - Uma Zamudio - 07/22/2022 4:41 PM EST Patient has been identified by name and date of : Yes, Provider MATHEW COBIAN Date 07/22/22 Time 0642 Patient phones for refill(s): Requested Prescriptions Pending Prescriptions Disp Refills citalopram (CELEXA) 40 mg tablet 90 tablet 1 Sig: Take 1 tablet by mouth once daily. Date of last office visit in primary care: 06/07/22 Last 2 Encounter Wt Readings: Date: Wt: 06/07/2022 97.8 kg (215 lb 9.6 oz) 01/14/2022 101.2 kg (223 lb) Previous labs/tests for medication: Not applicable Please advise. Thank you. Uma Zamudio documented in this encounterFostoria City Hospital11-18-2022 Miscellaneous Notes* Telephone Encounter - Mick Youngblood Ma - 06/10/2022 11:58 AM EST Pt sent Totsy message with information below. Made aware new Rx was sent to pharmacy and lab has been ordered to complete mid August. If questions pt to contact the office. Mick Youngblood Ma * Telephone Encounter - Mathew Cobian MD - 06/10/2022 11:50 AM EST Please notify patient that his TSH is low, which means his thyroid dose is too high. I would like to change to the 175 mcg dose taken once daily; new Rx done for this. We should recheck his TSH in 3 months. His vitamin D level is just slightly low, so he should take OTC vitamin D 2000 IU daily Mathew Cobian MD documented in this encounterFostoria City Hospital11-15-2022 Instructions* Patient Instructions* Mick Youngblood Ma - 06/07/2022 3:03 PM EST Take Vitamin D3 2,000 to 5,000 international unit(s) daily over the counter. Schedule Rheumatology appt. Schedule Neurology appt as ordered. Check labs today. documented in this encounterFostoria City Hospital11-15-2022 History of Present illness Narrative* Mathew Cobian MD - 06/07/2022 2:20 PM EST Chief Complaint Patient presents with: Follow Up HPI Good De Luna is a 56 year old male who presents here today for a Wellness visit. Pt here today for a Wellness visit and follow up; concerns about recent lab tests Pt's main concern is that he tested for ALA B27 marker. This was tested when he was at the [facility] for another flare up of Iritis. This has been an issue ongoing for the past 10 years. Concerned about this result due to his chronic conditions with his ongoing chronic back issues and DDD.Pt notes with this marker he was told they are more susceptible to eye conditions, such as Glaucoma. Was also advised to watch Tylenol/Ibuprofen usage. Alcohol/Tobacco - Still smoking about 5 cigarettes daily, previously smoked 1 ppd. Alcohol abuse and hx of going through withdrawal. Pt has been in [facility] ED several times with admission. Notes that he's not drinking daily and doesn't drink to get drunk, just likes the taste. Has cut way back from previous amounts he drank. He does not think he's an alcoholic and only went due to his anxiety being out of control. He would make up withdrawal symptoms to get admitted. Uro/GI - Follows with Dr. Sibley and Dr. Spain for prostate cancer, currently just watching pt. Reports some urgency with bowels, feels this is related to his back issues. Taking Prilosec 40 mg once daily for GERD symptoms. Anxiety - Chronic. Pt on current regimen of Celexa 40 mg once daily, feels he's stable at this time. Has some days that are worse then others. Previously was prescribed Ativan 0.5 mg, but this has been d/c due to alcohol abuse hx. Thyroid - On current regimen of Synthroid 200 mcg once daily. Notes hair thinning. JODEE - Uses CPAP nightly. Does well. Gets supplies through [employer]. Vit D - Daily Vitamin D3 50,000 international unit(s) once weekly. Has not taken this in a couple weeks, costs him around $26.00 for an Rx. Pain - Chronic lumbar pain and arthritis pain. Has been admitted several times into the hospital due to not being able to manage his pain and ambulate. Uses a walking stick to ambulate. His feet still have a lot of pain. Was told he doesn't have neuropathy but this is what this feels like. Hx of cerebral palsy.Pt was contacted by Neuro's office, Dr. Ardon for spasticity evaluation. Pt cancelled and no showed his appt's. Discussed getting injections. Pt was doing in home therapy. He is requesting referral to get scheduled with them again. Pt notes that he does fall. Does have a walker at home and uses a walking stick. HM - Declines flu shot. Declined HIV screening. Shingles vaccine discussed need to receive at Pharmacy. Past medical history, appointments, medications, allergies reviewed. Previous Medical History PAST MEDICAL HISTORY Diagnosis Date Anxiety state, unspecified Arthritis Cancer (HCC) Cerebral palsy (HCC) Congenital diplegia (HCC) GERD (gastroesophageal reflux disease) JODEE on CPAP Spinal stenosis Unspecified hypothyroidism Previous Surgical History PAST SURGICAL HISTORY Procedure Laterality Date TONSILLECTOMY HX TONSILLECTOMY PRIMARY/SECONDARY <AGE 14 Tonsillectomy Family History FAMILY HISTORY Adopted: Yes Problem Relation Age of Onset Diabetes Mother Thyroid Maternal Grandmother Patient Allergies ALLERGIES No Known Allergies Current Medications Current Outpatient Medications on File Prior to Visit Medication Sig omeprazole (PRILOSEC) 20 mg capsule take 1 capsule by mouth once daily CPAP Initiate CPAP @ 7 cm of water with humidification. Mask (per patient preference) optional chinstrap (if indicated) , filters, tubing, humidifier and lifetime supplies. levothyroxine (SYNTHROID) 200 mcg tablet Take 1 tablet by mouth once daily. Take on empty stomach. For Thyroid. citalopram (CELEXA) 40 mg tablet Take 1 tablet by mouth once daily. multivit-min/folic/vit K/lycop (MEN'S 50 PLUS MULTIVITAMIN ORAL) Take 1 tablet by mouth once daily. vitamin b complex capsule Take 1 capsule by mouth once daily. CPAP Mask (per patient preference) optional chin strap (if indicated) , filters, tubing, humidifierand lifetime supplies. iv contrast (will be provided with radiology test) MRI Prostate Inject, intravenously, once for 1 dose. No IV access, insert saline lock prior to the beginning of sedation, infusion, injection of imaging exam. Discontinue saline lock post exam. If Pt. has a central line or IVAD, may access for administration according to line specific nursing protocol. Once exam is complete flush line and de-access according to line specific nursing protocol in the MR contrast administration guidelines link. cholecalciferol, Vitamin D3, (VITAMIN D3) 1,250 mcg (50,000 unit) cap capsule Take 1 capsule by mouth one time a week. CPAP Initiate CPAP @ 7 cm of water with humidification. Mask (per patient preference) optional chinstrap (if indicated) , filters, tubing, humidifier and lifetime supplies. No current facility-administered medications on file prior to visit. Social History Social History Tobacco Use Smoking status: Every Day Packs/day: 1.00 Years: 30.00 Pack years: 30.00 Types: Cigarettes Smokeless tobacco: Never Tobacco comments: Pt has cut back to 1/4 pack daily. Vaping Use Vaping Use: Never used Substance Use Topics Alcohol use: Yes Comment: 3/4 beers daily sometimes Drug use: No EXAM: BP 124/76 (BP Site: Left Arm, BP Position: Sitting, BP Cuff Size: Regular Adult) Pulse 72 Resp 16 Wt 97.8 kg (215 lb 9.6 oz) BMI 35.88 kg/m General Appearance: Well appearing, alert, in no acute distress, well-hydrated, well nourished. Abnormal gait. Neck: Supple, no adenopathy; thyroid symmetric, normal size, no bruits. Lungs: Lungs clear to auscultation. No wheezing, rhonchi, rales.. Heart: RRR without murmur, gallop, or rubs. No ectopy. Health Maintenance List HEPATITIS B(1 of 3 - 3-dose series) Never done PNEUMOCOCCAL(1 - PCV) Never done HIV SCREENING Never done COLORECTAL CANCER SCREENING Never done SHINGRIX VACCINE(1 of 2) Never done DEPRESSION ASSESSMENT Never done COVID-19 VACCINE(4 - Booster for Pfizer series) due on 08/24/2021 INFLUENZA(1) due on 03/24/2022 ANNUAL PCP TEAM CHRONIC DISEASE VISIT due on 04/16/2022 LIPID SCREEN due on 06/07/2022 LUNG CANCER SCREENING due on 06/08/2022 DIABETES SCREEN due on 07/29/2024 DTAP,TDAP,TD(3 - Td or Tdap) due on 08/28/2028 HEPATITIS C SCREENING Completed Data reviewed Epic ASSESSMENT/PLAN: 1. Cerebral palsy, unspecified type (HCC) - ICD9: 343.9, ICD10: G80.9 (primary diagnosis) - Consult Neuro 2. Spinal stenosis of lumbar region without neurogenic claudication - ICD9: 724.02, ICD10: M48.061 - Continue current medication regimen. 3. Anxiety - ICD9: 300.00, ICD10: F41.9 - Stable - Continue current medication regimen. 4. GERD without esophagitis - ICD9: 530.81, ICD10: K21.9 - Continue current medication regimen. 5. JODEE (obstructive sleep apnea) - ICD9: 327.23, ICD10: G47.33 - Stable 6. Hypothyroidism, unspecified type - ICD9: 244.9, ICD10: E03.9 - Cont current medication - Check labs today. 7. Neoplasm of prostate - ICD9: 239.5, ICD10: D49.59 - Cont f/u with Specialists 8. Vitamin D deficiency - ICD9: 268.9, ICD10: E55.9 - Check labs today- - Take Vit D3 2,000-5000 daily 9. Positive HLA B27 Refer to Rheum Schedule f/u's and complete labs. I agree with the Chief Complaint, ROS, and Past Histories independently gathered by the clinical faculty support coordinator and the remaining scribed note accurately describes my personal service to the patient. Medical Decision Making: Problems: Moderate: New problem with uncertain prognosis and 2+ stable chronic illnesses Risk: Moderate: Drug management Medical Decision Making Level: 4 - Moderate Mathew Cobian MD The documentation for this note was completed by Mick Youngblood Ma acting as scribe for Mathew Cobian MD. June 07, 2022 3:02 PM. Mick Youngblood Ma documented in this encounterFostoria City Hospital09-28-2022 Miscellaneous Notes* Telephone Encounter - Uma Zamudio - 04/20/2022 11:13 AM EDT Appointment changed as directed. Uma Zamudio * Telephone Encounter - Tyra Yung LPN - 04/20/2022 11:05 AM EDT Okay to make today's visit a telephone visit instead. Please change. Patient is aware. Patient can be reached at [phone]. Tyra Yung LPN * Telephone Encounter - Sofia Moreira - 04/20/2022 10:44 AM EDT Pt would like to know if he could have a phone visit instead of a VV today. He has some transportation conflicts. documented in this encounterFostoria City Hospital09-27-2022 History of Present illness Narrative* Helder Sibley DO - 04/19/2022 4:57 PM EDT TELEPHONE VISIT 10 minutes PSA down to 1.45 DX: prostate cancer PLAN: Repeat PSA in 6 months. Helder Sibley DO documented in this encounterFostoria City Hospital08-11-2022 Miscellaneous Notes* Telephone Encounter - Fitz Espino MD - 03/03/2022 9:40 AM EDT Patient's request for medication is as follows Requested Prescriptions Signed Prescriptions Disp Refills LORazepam (ATIVAN) 0.5 mg 60 tablet 0 Sig: Take 1-2 tablets by mouth once daily as needed for up to 30 days. Authorizing Provider: FITZ ESPINO Order entered - please phone pharmacy and notify patient. Fitz Espino MD * Telephone Encounter - Sofia Moreira - 03/03/2022 9:16 AM EDT Patient has been identified by name and date of : Yes Last office visit in this department: Visit date not found RX INSTRUCTIONS: Patient aware RX will be sent to pharmacy. No need to notify patient. Patient phones requesting refills as follows: Requested Prescriptions Pending Prescriptions Disp Refills LORazepam (ATIVAN) 0.5 mg 60 tablet 0 Sig: Take 1-2 tablets by mouth once daily as needed for up to 30 days. Please review and advise. Sofia Moreira documented in this encounterFostoria City Hospital08-10-2022 History of Present illness Narrative* Laura Whaley Ma - 03/02/2022 2:04 PM EDT TRANSITION CARE MANAGEMENT (TCM) INITIAL CONTACT Clinical Support Tech Outreach Provider Action/FYI: 14 day TCM He is doing ok, he states he is no worried. He doesn't think he has a problem, admits he abuses alcohol. He was there a year ago for same thing and was told ER at that time that he was having withdrawal sx but he stated he lied so he would be admitted. He states he was being a hypochondriac. He is not having withdrawal sx currently. He states he drinks a beer an hour when he drinks, but it depends on the day. He states he doesn't drink to get drunk. He states that is not a drink to get drunk kind of precious or drink till I pass out kind of precious. He was reminded of his appt on 03/15/22 with PCP. Initial contact with patient post discharge, spoke to patient on 03/02/22. Patient identified by name and . TRANSITION CARE MANAGEMENT INITIAL OUTREACH DOCUMENTATION: Date of Outreach: 03/02/2022 Outreach Attempt 1: Contact Made Date of Discharge 03/01/2022 Some recent data might be hidden SUMMARY: -Pt discharged from [facility] on 03/01/22. -Admitted for: Alcohol abuse Below copied from [facility]: Chief Complaint: Substance Abuse Narrative Narrative: 56-year-old male presenting for alcohol detox. He states he is detoxed here before. He states he has been drinking for about 10 years. After his previous detox he states he did end up drinking again.He states that he can drink anywhere from 2 beers to 10 beers a day. He states that he does not usually drink to get drunk. He did buy a couple bottles of spice from last week and thinks he overdid it and now is concerned that he may withdrawal if he stops drinking. His last drink today was at 9 AM. He states he had 3 shots. He denies drug use. He states he did take 1 mg of Ativan which is prescribed to him before coming in he feels okay right now. He is a little bit on edge he states. Patient does not have any history of withdrawal seizure. Hospital Course: Mr. De Luna is a 56-year-old white male who presented to the emergency department on 02/27/2022 with anxiety and tremulousness seeking alcohol detox. The patient reported on admission he was feeling more anxious and and stopped drinking on the day of admission. He denied tremulousness to the hospitalist. The patient reported that he drinks anywhere from 2-12 beers a day and indicated he can drink 1-1-1/2 an hour. He was seen in the emergency department earlier on the day of admission and was offered treatment for his alcohol withdrawal at that time but stated he had to go back and take care of his cat he subsequently came back and was now on board with getting treatment. He evidently was here in November 2020 for alcohol withdraw and his course was complicated by hallucinations at that time. The patient also reported on admission that he went to [facility] back [facility] June for physicalrehab and did not have any withdrawal at that time. Patient notes he has a history of anxiety at baseline. He was admitted to the medical floor and placed on a phenobarbital taper with supportive medi cations including thiamine and folate. His alcohol level was less than 3 on admission. The patient did extremely well and really exhibited no signs of alcohol withdrawal during his hospitalization. He was seen by 180 during his course and the plan is for him to follow-up at the counseling center [facility] outpatient. Upon conversation it sounds like the patient does not really think he has an overallproblem and would like to be able to drink socially but not excessively. I did discuss with him that list is likely not a good idea as it could predispose him to further issues with excessive drinking and he stated he was trying to figure out where he was in this process at this time. I strongly encouraged follow-up at the counseling center as an outpatient for alcohol abuse. We also discussed outpatient physical therapy versus home health. The patient really states when he needs his daily stretching and was resistant to doing any further home health or outpatient therapy. He states if he desires to go to outpatient physical therapy he does have a standing order and can do so. He was discharged in stable condition on 03/01/2022. He was instructed to follow- up with his primary care physicianin 1 week. Do you have a hospital follow up appointment with your PCP? Appointment on 03/15/22 with PCP. Yes. Remind patient of appointment date, time, and location. If not within 14 calendar days of discharge - please reschedule accordingly. MEDICATIONS: Many patients have questions or concerns about their medications once they are home. Were you prescribed any new medications? No Were you told to hold any medications? No Were any of your medications discontinued? No Do you have any questions about getting or taking your medications? No Your discharge instructions/After visit Summary (AVS) are important in guiding you through the recovery process. Is there anything I might help you understand? No Do you have all the necessary equipment and supplies at home? Yes Medical records from recent hospitalization: Placed for provider to review documented in this encounterFostoria City [facility]07-28-2022 Miscellaneous Notes* Telephone Encounter - Sofia Munoz - 02/17/2022 4:09 PM EDT Received verbal order for physical therapy orders [facility] in [place], Sent to Dr. Ardon for signaturethen fax to [phone] documented in this encounterFostoria City Hospital06-27-2022 Miscellaneous Notes* Telephone Encounter - Sarah Edmondson LPN - 01/17/2022 8:07 AM EDT Left detailed message on VM. Sarah Edmondson LPN * Telephone Encounter - Hardik Spain DO - 01/15/2022 4:17 PM EDT Good news. Can let him know the area in the left pelvis bone is unchanged and therefore benign. Follow up as scheduled. Hardik Spain DO documented in this encounterFostoria City Hospital06-24-2022 History of Present illness Narrative* Hardik Spain DO - 01/14/2022 11:28 AM EDT Patient originally referred here for abnormal MRI and bone scan. HPI: The patient is a 56-year-old male with a past medical history of cerebral palsy, congenital diplegia, sleep apnea, hypothyroidism, SI joint dysfunction, bilateral hip pain, spinal stenosis, chronic bilateral lower back pain with right-sided sciatica, spasticity, costochondritis and anxiety. Patient had slow decline in his ability to ambulate associated with lower extremity weakness over the last few years. He described having chronic lower back pain for years. His balance had been getting worse. He had been undergoing a work-up recently. Patient had an MRI of the lumbar spine on 05/20/2021. A small T2 hyperintense left upper renal polefocus was observed measuring 6 mm likely representing a cyst. There was a 1.0 cm mildly T1 and T2 hyperintense lesion also demonstrating some high inversion recovery signal observed involving the L4 vertebrae. This lesion was present on prior MRI dated 02/10/2019 and also on prior MRI dated 04/30/2014. Though it was noted to slightly increase in size. Also there was a STIR hyperintense lesion demonstrating intermediate to high T1 signal measuring 1.2 cm involving the left upper aspect of the L1 vertebral body increased in extent since 02/10/2019 and 04/30/2014. In addition there was new STIR hyper intense lesion centered on the left T12 pedicle extending into the anterior facet and adjacent dorsal vertebral body. This measured up to 2.6 cm in AP dimension. This lesion demonstrated intermediateto low signal on T1 imaging there was no evidence of prior fracture. Whole-body bone scan was performed on 05/29/2021. Imaging demonstrated mild focal increased uptake in the left aspect of T12 overlying the region of the left T12 pedicle and segmental uptake in the posterior ninth rib, right mid clavicle for which the findings could not rule out metastasis. There was no other suspicious focal or segmentally increased tracer uptake. CT Chest 06/08/2021: Lung parenchyma and airways: The central airways are patent. No suspicious pulmonary nodules identified. No masses. There are atelectatic changes noted in the lingula and right middle lobe; otherwise the lungs are clear of consolidations. Pleural space: No pleural effusion or pneumothorax. No pleural thickening. There are large bilateral pericardial fat pads. Lower neck, lymph nodes, and mediastinum: The imaged thyroid gland is normal. No lymphadenopathy inthe supraclavicular, axillary, mediastinal, or hilar regions. A small hilar hernia is present. Heart, pericardium, and thoracic vessels: The thoracic aorta and main pulmonary artery are normal in caliber. The cardiac chambers are normal in size. No coronary artery atherosclerotic calcifications are noted, although the study is not optimized for coronary assessment. No pericardial effusion or thickening. Bones and soft tissues: No destructive bone lesion. Osteophyte formation seen in the spine. Chest wall is unremarkable. Upper abdomen: A dedicated CT abdomen and pelvis was performed concurrently and will be reported separately. Computer Peripheral Equipment Operator (topogram) images: No additional findings. IMPRESSION: No CT evidence of metastatic disease in the chest CT A./P 06/08/2021: RESULT: Liver: Diffuse fatty infiltration of liver. Biliary: No bile duct dilation. Spleen: No mass. No splenomegaly. Pancreas: No mass or duct dilation. Adrenals: No mass. Kidneys: Possible tiny cortical cyst involving the upper pole left kidney. No left renal calculus or hydronephrosis. No right renal calculus, hydronephrosis, renal lesion. GI tract: Diverticulosis of the colon. Fecal residue in the colon. No acute inflammatory process identified involving the bowel. No evidence of bowel obstruction. Lymph nodes: No abdominal or pelvic lymphadenopathy. Mesentery/Peritoneum: No ascites or mass. Retroperitoneum: No mass. Vasculature: No aneurysm. Pelvis: No free fluid or free air identified. Diffuse mural thickening of the bladder. Fat-containing left inguinal hernia. Prominent fat in the right inguinal canal. No inguinal adenopathy or mass. Bones/Soft Tissues: Endplate osteophytes at multiple levels in the lumbar spine imaged thoracic spine. Metastasis involving the left ischium (series 2 image 134). Possible insufficiency fracture involving the right sacrum. Subchondral sclerosis versus subchondral fracture involving the right iliac bone subjacent to the right SI joint. Insufficiency fracture and subchondral sclerosis involving the right iliac bone are unchanged from the CT on March 09, 2018. Thickening of the cutaneous tissues of the scrotum. Lower thorax: Punctate 3 mm noncalcified nodule in the peripheral aspect of the left lower lobe (series 2 image 19). Scarring involving the inferior aspect of the lingula. Images cardiac chambers are unremarkable in appearance. No pericardial effusion or pericardial thickening. Computer Peripheral Equipment Operator (topogram) images: No additional findings. IMPRESSION: Sclerotic lesion involving the left ischium concerning for metastatic disease. Hepatic steatosis. Diffuse mural thickening of the bladder likely related to chronic bladder outlet obstruction. Diverticulosis without evidence diverticulitis. Additional findings as above. Patient had lab work for serum protein electrophoresis and immunofixation: Component Latest Ref Rng & Units 06/03/2021 Protein, Total 6.3 - 8.0 g/dL 6.7 Albumin 3.37 - 4.23 gm/dL 3.50 Alpha 1 Globulin 0.18 - 0.31 gm/dL 0.20 Alpha 2 Globulin 0.52 - 0.97 gm/dL 0.77 Beta Globulin 0.84 - 1.36 gm/dL 1.03 Gamma Globulin 0.70 - 1.44 gm/dL 1.21 Interpretation (Prot Electro) SEE COMMENT M-Protein Location N/A M-Protein Concentration 0.00 gm/dL 0.00 SPE Staff Review Reviewed by Lindsay Payne MD ([id number]) MPA IgG, Serum 700 - 1,600 mg/dL 1,150 MPA IgA, Serum 70 - 400 mg/dL 391 MPA IgM, Serum 40 - 230 mg/dL 113 [place] Free, Serum 3.30 - 19.40 mg/L 22.9 (H) Lambda Free, Serum 5.7 - 26.3 mg/L 18.8 K/L Ratio, Serum 0.26 - 1.65 1.22 MPA Result No M protein is identified. No M protein is identified. Staff Review (MPA) Reviewed by Lindsay Payne MD ([id number]) WSR was 10 mm/hr on 05/20/2021 CRP was 3.0 mg/dL. Component Latest Ref Rng & Units 04/16/2021 WBC 3.70 - 11.00 k/uL 10.94 RBC 4.20 - 6.00 m/uL 5.41 Hemoglobin 13.0 - 17.0 g/dL 15.8 Hematocrit 39.0 - 51.0 % 49.9 MCV 80.0 - 100.0 fL 92.2 MCH 26.0 - 34.0 pG 29.2 MCHC 30.5 - 36.0 g/dL 31.7 RDW-CV 11.5 - 15.0 % 15.0 Platelet Count 150 - 400 k/uL 244 MPV 9.0 - 12.7 fL 11.8 Neut% % 75.1 Abs Neut (ANC) 1.45 - 7.50 k/uL 8.22 (H) Lymph% % 16.5 Abs Lymph 1.00 - 4.00 k/uL 1.80 [place]osa% % 7.1 Abs [place]osa <0.87 k/uL 0.78 Eosin% % 0.9 Abs Eosin <0.46 k/uL 0.10 Baso% % 0.4 Abs Baso <0.11 k/uL 0.04 Nucleated Reds 0 /100 WBC 0.0 Absolute nRBC <0.01 k/uL <0.01 Diff Type Auto Diff Protein, Total 6.3 - 8.0 g/dL 7.5 Albumin 3.9 - 4.9 g/dL 4.2 Calcium 8.5 - 10.2 mg/dL 9.5 Bilirubin, Total 0.2 - 1.3 mg/dL 0.4 Alkaline Phosphatase 38 - 113 U/L 108 AST 14 - 40 U/L 22 Glucose 74 - 99 mg/dL 93 BUN 9 - 24 mg/dL 11 Creatinine 0.73 - 1.22 mg/dL 1.21 Sodium 136 - 144 mmol/L 137 Potassium 3.7 - 5.1 mmol/L 4.1 Chloride 97 - 105 mmol/L 101 CO2 22 - 30 mmol/L 26 Anion Gap 9 - 18 mmol/L 10 ALT 10 - 54 U/L 23 eGFR- >60 eGFR-All Other Races . >60 Bone survey 06/14/2021: IMPRESSION: No obvious blastic or lytic lesion. Right SI joint and iliac bone medially are obscured by gas and fecal residue in the left is partially obscured. Homogeneous sclerotic change in the left ischium is again noted without lytic change. Review of CT suggests that this is due to healing fracture. PET 06/22/2021: IMPRESSION: 1. NECK: * No FDG avid neoplastic process. No hypermetabolic mass, adenopathy, or fluid collection.. 2. CHEST: * No FDG avid neoplastic process. No hypermetabolic mass, adenopathy, or fluid collection.. 3. ABDOMEN/PELVIS: * Hypermetabolic nodule in the LEFT prostate transitional zone suspicious for prostate neoplasm. * No hypermetabolic abdominopelvic lymphadenopathy. 4. EXTREMITIES/SKELETON: * Hazy sclerosis of the LEFT ischial tuberosity does not demonstrate significant FDG avidity but is nevertheless concerning for metastases in the context of hypermetabolic LEFT prostate lesion and elevated PSA. * Diffuse increased marrow uptake throughout the axial and appendicular skeleton without focal destructive osseous lesion is nonspecific, can be related to anemia, hematopoietic stimulation or diffuse osseous neoplastic or marrow process. PSA found elevated to 5.2 ng/mL. He underwent biopsy of the prostate. Pathology reviewed. Plan per urology was MRI of prostate and decipher molecular testing. Patient underwent CT-guided biopsy of left ischial bone abnormality 06/24/2021. Pathology: Bone, left ischial tuberosity, core biopsy (A) - Scant fragments of cancellous bone with bone marrow fibrosis and crush artifact. Negative for neoplasm. Presents for ongoing management. Interim history: He has no complaints today. No change in chronic lower back pain. No urinary complaints. He feels as if he voids to completion. No hesitancy. No gross hematuria or dysuria. PMH, medications and allergies personally reviewed by me today. Any changes documented in appropriate section. ASSESSMENT/PLAN: (C61) Prostate cancer (HCC) (primary encounter diagnosis) (R93.7) Abnormal bone radiograph Assessment: -The patient is a 56-year-old male smoker who was incidentally found to have a left ischial sclerotic lesion along with several slowly enlarging vertebral lesions when undergoing work-up for progressive lower extremity weakness. Serum protein electrophoresis and immunofixation negative. CBC was unremarkable. PSA was elevated and PET scan demonstrated FDG avid nodule in prostate, diffuse marrow uptake, and the area of sclerotic concern in the left ischium that was not FDG avid. -Biopsy of the left ischial lesion was benign. -Biopsy of prostate--Very low risk disease. -Bone marrow biopsy demonstrated normal bone marrow and normal cytogenetics. -Patient has been through exhaustive work-up and no clear evidence of metastatic cancer to the bones. -Previously reviewed with Ortho oncology at [facility]. Follow-up plain film of the pelvis was recommended. -Personally reviewed plain films of the pelvis with him. I see no sclerotic lesion or change in theleft ischial tuberosity. Plan: -He will be contacted with the official radiology results of the plain film from today. -Otherwise repeat in about 3 to 4 months. If stable then stop monitoring. -He will follow up with Dr. Sibley for monitoring of the prostate cancer. Portions of this documentation were copied and pasted from previous office visit notes in order to provide a cohesive continuity of the history. The note has been reviewed and edited and updated as necessary. Hardik Spain DO documented in this encounterFostoria [facility]06-24-[facility] History of Present illness Narrative* RT Jonathan(R) - 01/14/2022 10:20 AM EDT Radiology Service Progress Note PATIENT NAME: Good De Luna DATE OF SERVICE: January 14, 2022 TIME: 10:32 AM PATIENT IDENTITY VERIFICATION COMPLETED USING TWO (2) IDENTIFIERS: Name and Date of confirmedby patient verbally. FALL SCREENING: Has the patient had 2 falls in the last year or 1 fall with injury or currently using an Ambulatory Assistive Device (Walker, Cane, Wheelchair, Crutches, etc.)? Yes, Patient High Riskfor Falls What interventions were put in place to prevent falls during this visit? Offered Assistance with Transfers/Clothing and Instructed Patient to Remain Seated (Not on Exam Table) Until Exam PATIENT GENDER DATA: Male PATIENT RELEVANT IMPLANT DATA REVIEWED: Not Applicable RADIOLOGY DEPARTMENT: General X-ray: Exam(s) Completed: Pelvis X-Ray: Pelvis General AP PERIPHERAL IV DATA: Not applicable SIGNED BY: RT Jonathan(R) January 14, 2022 10:32 AM documented in this encounterFostoria City Hospital06-03-2022 Miscellaneous Notes* Telephone Encounter - Mick Youngblood Ma - 12/24/2021 11:37 AM EDT Pt rx faxed to [employer]. States that he's been receiving his supplies from there without issues. Faxed to [phone]. Mick Youngblood Ma * Telephone Encounter - Mick Youngblood Ma - 12/24/2021 8:12 AM EDT Sent mychart message to pt notifying him of previous DME Co response. Asked pt who original Co was that he used. Mick Youngblood Ma * Telephone Encounter - Mathew Cobian MD - 12/23/2021 5:09 PM EDT Prescriptions printed Mathew Cobian MD * Telephone Encounter - Mick Youngblood Ma - 12/23/2021 10:00 AM EDT Please see pt message and advise. Also please see information below from TE 08/30/21. Ramón from [facility] calling to state due to insurance and due to patient having 2 failed compliance periods, they are unable to provide supplies for patient. [facility] Pt previously got supplies through [facility] from note back on 01/05/18. Mick Youngblood Ma documented in this encounterFostoria City Hospital06-01-2022 Miscellaneous Notes* Telephone Encounter - Sofia Munoz - 12/22/2021 4:06 PM EDT Home health care plans have been fax to [employer] Atttorrey_ uma Macias Rn at [phone] * Telephone Encounter - Sofia Munoz - 12/22/2021 3:52 PM EDT Received home health plan of care and certification paperwork from [employer] Sent to Dr. Ardon for review, fax back to [phone] documented in this encounterFostoria City Hospital05-23-2022 Miscellaneous Notes* Telephone Encounter - Brian Ahmadi APRN.CNP - 12/13/2021 11:04 AM EDT The following approved medication requests have been transmitted electronically. Pending Prescriptions Disp Refills LEVOTHYROXINE 200 MCG TABLET 90 tablet 1 Sig: Take 1 tablet by mouth once daily. Take on empty stomach. For Thyroid. JUDITH: No Brian Ahmadi APRN.CNP * Telephone Encounter - Ross Roldan LPN - 12/13/2021 11:02 AM EDT Patient phones requesting refills as follows: Pending Prescriptions Disp Refills LEVOTHYROXINE 200 MCG TABLET 90 tablet 1 Sig: Take 1 tablet by mouth once daily. Take on empty stomach. For Thyroid. JUDITH: No GUILHEMRE-04/16/21 Labs-09/22/21 NOV-none med filled 04/16/21 ends 09/22/21 Please review and advise. Ross Roldan LPN documented in this encounterFostoria City Hospital05-21-2022 Miscellaneous Notes* Telephone Encounter - Merlyn Rutherford RN - 12/11/2021 1:45 PM EDT Reason for Call : High Blood Pressure reading Outcome: Recommendation - See HCP within 3 days. Patient was conferenced to Lindsay in [facility]ointment [facility] for HCP scheduling. Reason for Disposition Systolic BP >= 160 OR Diastolic >= 100 Answer Assessment - Initial Assessment Questions 1. BLOOD PRESSURE: 157/116 145/89 71 2. ONSET: 1 hour ago 3. HOW: OT took took during therapy 4. HISTORY: Denies 5. MEDICATIONS: Denies 6. OTHER SYMPTOMS: Denies Protocols used: BLOOD PRESSURE - [id number] documented in this encounterFostoria City Hospital05-06-2022 Miscellaneous Notes* Telephone Encounter - Mathew Cobian MD - 11/26/2021 2:14 PM EDT OK to refill as ordered Mathew Cobian MD * Telephone Encounter - Indy Berumen - 11/26/2021 1:43 PM EDT Patient has been identified by name and date of : Yes Pending Prescriptions Disp Refills CITALOPRAM 40 MG TABLET Sig: Take 1 tablet by mouth once daily. JUDITH: No GUILHERME-04/16/21 Labs-09/22/21 NOV-none RX INSTRUCTIONS: Patient aware RX will be sent to pharmacy. No need to notify patient. Indy Berumen documented in this encounterFostoria City Hospital04-06-2022 Miscellaneous Notes* Telephone Encounter - Patricia Jeffers MA - 10/27/2021 10:24 AM EDT Type of letter/form/fax request - Home Health Certification and Plan of Care [facility] and placed on MD desk () for completion. Completed form needs to be faxed to [phone]. [facility] for processing Patricia Jeffers MA documented in this [facility]08-26-[facility] History of Present illness Narrative* Juju Simpson, RT(R) - 03/18/2021 12:30 PM EDT Radiology Service Progress Note PATIENT NAME: Good De Luna DATE OF SERVICE: March 18, 2021 TIME: 1:48 PM PATIENT IDENTITY VERIFICATION COMPLETED USING TWO (2) IDENTIFIERS: Name and Date of confirmedby patient verbally. FALL SCREENING: Has the patient had 2 falls in the last year or 1 fall with injury or currently using an Ambulatory Assistive Device (Walker, Cane, Wheelchair, Crutches, etc.)? No PATIENT GENDER DATA: Male PATIENT RELEVANT IMPLANT DATA REVIEWED: Not Applicable RADIOLOGY DEPARTMENT: General X-ray: Exam(s) Completed: Pelvis X-Ray: Pelvis with Hip Bilateral PERIPHERAL IV DATA: Not applicable SIGNED BY: RT Joe(R) March 18, 2021 1:48 PM documented in [facility] encounterPro[facility] No data available for this section [facility] Evaluation note* Diagnosis Sleep apnea, unspecified type- Primary documented in this encounter [facility]* Diagnosis Abnormal x-ray of pelvis- Primary Nonspecific (abnormal) findings on radiological and other examination of abdominal area, including retroperitoneum documented in this encounter [facility]* Diagnosis Abnormal x-ray of pelvis Nonspecific (abnormal) findings on radiological and other examination of abdominal area, including retroperitoneum documented in this encounter [facility] noteNo assessment information availableWPomerene Hospital Work Phone: Evaluation note* Diagnosis Prostate cancer (HCC) Malignant neoplasm of prostate documented in this encounter [facility]* Diagnosis Malignant neoplasm of prostate (HCC)- Primary Malignant neoplasm of prostate documented in this encounter [facility]* Diagnosis Cerebral palsy, unspecified type (HCC)- Primary Spinal stenosis of lumbar region without neurogenic claudication Spinal stenosis, lumbar region, without neurogenic claudication Anxiety Anxiety state, unspecified GERD without esophagitis Esophageal reflux JODEE (obstructive sleep apnea) Obstructive sleep apnea (adult) (pediatric) Hypothyroidism, unspecified type Neoplasm of prostate Neoplasm of unspecified nature of other genitourinary organs Vitamin D deficiency Unspecified vitamin D deficiency Hair loss Alopecia, unspecified HLA B27 (HLA B27 positive) Genetic susceptibility to other disease documented in this encounter [facility]* Diagnosis Hypothyroidism, unspecified type- Primary documented in this encounter [facility]* Diagnosis Prostate cancer (HCC) Malignant neoplasm of prostate documented in this encounter [facility]* Diagnosis Hypothyroidism, unspecified type- Primary Vitamin D deficiency Unspecified vitamin D deficiency Alcohol use GERD without esophagitis Esophageal reflux [facility]* Diagnosis Cerebral palsy, unspecified type (HCC)- Primary Congenital diplegia (HCC) Congenital diplegia Hypothyroidism, unspecified type GERD without esophagitis Esophageal reflux Anxiety Anxiety state, unspecified JODEE (obstructive sleep apnea) Obstructive sleep apnea (adult) (pediatric) Prostate cancer (HCC) Malignant neoplasm of prostate Vitamin D deficiency Unspecified vitamin D deficiency Recurrent major depressive disorder, remission status unspecified (HCC) documented in this encounter [facility]* Diagnosis Chronic bilateral low back pain with right-sided sciatica- Primary [facility]* Diagnosis Urinary frequency- Primary Prostatitis, acute Acute prostatitis [facility]* Diagnosis JODEE (obstructive sleep apnea)- Primary Obstructive sleep apnea (adult) (pediatric) Bilateral impacted cerumen Impacted cerumen Brain fog Hypothyroidism, unspecified type Vitamin D deficiency Unspecified vitamin D deficiency [facility]* Diagnosis Hypothyroidism, unspecified type- Primary documented in this [facility]* Diagnosis Developmental venous anomaly- Primary Congenital anomaly of the peripheral vascular system, unspecified site Developmental venous anomaly Congenital anomaly of the peripheral vascular system, unspecified site Pre-syncope Syncope and collapse [facility]* Diagnosis Hospital discharge follow-up- Primary Other follow-up examination Screening for colon cancer Special screening for malignant neoplasms, colon Chronic bilateral low back pain with right-sided sciatica Dizziness Dizziness and giddiness Cerebral palsy, unspecified type (HCC) Recurrent major depressive disorder, remission status unspecified (HCC) Prostate cancer (HCC) Malignant neoplasm of prostate [facility]* Diagnosis Pain in right testicle- Primary Unspecified disorder of male genital organs Right groin pain Abdominal pain, right lower quadrant [facility]* Diagnosis Pain in right testicle Unspecified disorder of male genital organs [facility]* Diagnosis Hypothyroidism, unspecified type [facility]* Diagnosis Anxiety Anxiety state, unspecified documented [facility]* Diagnosis Hypothyroidism, unspecified type [facility]* Diagnosis Irritability- Primary Anxiety Anxiety state, unspecified Memory changes Memory loss Hypothyroidism, unspecified type Sensation of fullness in both ears Cerebral palsy, unspecified type ([facility]) Alcohol use documented [facility] this encounter [facility]* Diagnosis GERD without esophagitis Esophageal reflux documented in this [facility]* Diagnosis Rash- Primary Rash and other nonspecific skin eruption documented in this [facility]* Diagnosis Prostate cancer (HCC) Malignant neoplasm of prostate documented in this encounter [facility]* Diagnosis Hypothyroidism, unspecified type- Primary Recurrent major depressive disorder, remission status unspecified (HCC) MANNY (generalized anxiety disorder) Generalized anxiety disorder Memory loss documented in this encounter [facility]* Diagnosis Dizziness and giddiness- Primary [facility]* Diagnosis Recurrent major depressive disorder, remission status unspecified (HCC)- Primary MANNY (generalized anxiety disorder) Generalized anxiety disorder Hypothyroidism, unspecified type documented in this encounter [facility]* Diagnosis Hypothyroidism, unspecified type- Primary documented in this [facility]* Diagnosis Hypothyroidism, unspecified type- Primary Memory loss Neck mass Swelling, mass, or lump in head and neck documented in this encounter [facility]* Diagnosis Hypothyroidism, unspecified type [facility]* Diagnosis Pain Generalized pain documented in this encounter [facility]* Diagnosis Diverticulitis- Primary Diverticulitis of colon (without mention of hemorrhage) Bloody stools Blood in stool Encounter for immunization Need for other specified prophylactic vaccination against single bacterial disease Diverticulitis- Primary Diverticulitis of colon (without mention of hemorrhage) Bloody stools Blood in stool [facility]* Diagnosis Prostate cancer (HCC)- Primary Malignant neoplasm of prostate Diverticulitis- Primary Diverticulitis of colon (without mention of hemorrhage) Bloody stools Blood in stool [facility]* Diagnosis Diverticulitis- Primary Diverticulitis of colon (without mention of hemorrhage) Bloody stools Blood in stool [facility]* Diagnosis Blood in stool- Primary Diverticulitis Diverticulitis of colon (without mention of hemorrhage) Bloody stools Blood in stool Rectal bleeding- Primary Hemorrhage of rectum and anus documented [facility]* Diagnosis Rectal bleeding- Primary Hemorrhage of rectum and anus Diverticulitis Diverticulitis of colon (without mention of hemorrhage) Bloody stools Blood in stool documented in this [facility]* Diagnosis Abrasion of lower leg, unspecified laterality, initial encounter- Primary documented in this encounter [facility]* Diagnosis History of colonic polyps- Primary Personal history of colonic polyps documented in this encounter [facility]* Diagnosis Confusion- Primary Unspecified psychosis documented in this encounter [facility]* Diagnosis Congenital malformation- Primary Congenital anomaly, unspecified Venous anomaly Congenital anomaly of the peripheral vascular system, unspecified site documented in this encounter [facility]* Diagnosis Hypothyroidism, unspecified type- Primary Recurrent major depressive disorder, remission status unspecified (HCC) Anxiety Anxiety state, unspecified Confusion Unspecified psychosis documented in this encounter [facility]* Diagnosis Hypothyroidism, unspecified type- Primary documented in this [facility]* Diagnosis Hospital discharge follow-up- Primary Other follow-up examination Closed fracture of proximal end of right fibula, unspecified fracture morphology, sequela Prostate cancer (HCC) Malignant neoplasm of prostate documented in this encounter [facility]* Diagnosis Other closed fracture of proximal end of right fibula, initial encounter documented in this encounter [facility]* Diagnosis Tobacco abuse Tobacco use disorder [facility]* Diagnosis Other closed fracture of proximal end of right fibula, initial encounter- Primary Other closed fracture of proximal end of right fibula, initial encounter documented in this encounter [facility]* Diagnosis Other closed fracture of proximal end of right fibula, initial encounter- Primary documented in this encounter [facility]* Diagnosis Other closed fracture of proximal end of right fibula with routine healing, subsequent encounter- Primary documented in this encounter [facility]* Diagnosis Other closed fracture of proximal end of right fibula, initial encounter documented in this encounter [facility]* Diagnosis Prostate cancer (HCC) Malignant neoplasm of prostate [facility]* Diagnosis Sore throat- Primary Acute pharyngitis Viral illness Unspecified viral infection, in conditions classified elsewhere and of unspecified site Seasonal allergic rhinitis, unspecified trigger [facility] Diagnosis Diverticulitis- Primary Diverticulitis of colon (without mention of hemorrhage) Skin tags, multiple acquired Hypothyroidism, unspecified type- Primary Recurrent major depressive disorder, remission status unspecified Anxiety Anxiety state, unspecified [facility] Diagnosis Blood in stool- Primary Diverticulitis Diverticulitis of colon (without mention of hemorrhage) Fatigue, unspecified type Low energy Chronic bilateral low back pain with right-sided sciatica Hypothyroidism, unspecified type- Primary Recurrent major depressive disorder, remission status unspecified Anxiety Anxiety state, unspecified documented in this encounter [facility] for referral (narrative)* Diagnostic Procedure Only (Routine) - Authorized Specialty Diagnoses / Procedures [facility] Ref[facility] To Contact XR IMAGING Diagnoses Abnormal x-ray of pelvis Procedures XR PELVIS 1V AP RADIOLOGIC EXAMINATION PELVIS 1/2 VIEWS Hardik Spain DO [address] [place] [address] Xr Imaging Referral ID Status Reason Start Date Expiration Date Visits Requested Visits Authorized [id number] Authorized Auto-Generat ed Referral 01/14/2022 02/13/[address] [facility] for referral (narrative)* Diagnostic Procedure Only (Routine) - Closed Specialty Diagnoses / Procedures [facility] Referred To Contact XR IMAGING Diagnoses Abnormal x-ray of pelvis Procedures XR PELVIS 1V AP RADIOLOGIC EXAMINATION PELVIS 1/2 VIEWS Hardik Spain DO [address] [place] [address] Xr Imaging Referral ID Status Reason Start Date Expiration Date V isits Requested Visits Authorized [id number] Closed Auto-Generate d Referral 10/13/2021 11/12/[address] [facility] for referral (narrative)* Consultation (Routine) - New Request Specialty Diagnoses / Procedures [facility] Referred To Contact Neurologic Surgery Diagnoses Developmental venous anomaly Herlinda Smith, PHYSICIAN UNDERWRITER-REBRANDER [address] [place] [address] Referral ID Status Reason Start Date Expiration Date V isits Requested Visits Authorized [id number] New Request 09/28/2023 10/22/2024 1 1 * Radiology (Emergency) - New Request Specialty Diagnoses / Procedures Referred By Contac t Referred To Contact Procedures ECG Cristina Chan MD [address] [place] [address] Referral ID Status Reason Start Date Expiration Date V isits Requested Visits Authorized [id number] New Request 09/27/2023 10/21/2024 1 1 * (Routine) Specialty Diagnoses / Procedures Referred By Contac t Referred To Contact [address] [place] [address] Referral ID Status Reason Start Date Expiration Date Visits Re quested Visits Authorized * Unlisted Procedure Code (Routine) - New Request Specialty Diagnoses / Procedures Referred By Contac t Referred To Contact Procedures DVT/VTE RISK ASSESSMENT Cristina Chan MD [address] [place] [address] Referral ID Status Reason Start Date Expiration Date V isits Requested Visits Authorized [id number] New Request 09/27/2023 10/21/2024 1 1 * Radiology (Emergency) - New Request Specialty Diagnoses / Procedures Referred By Contac t Referred To Contact Procedures ECG Jacqui Ron MD [address] [place] [address] Referral ID Status Reason Start Date Expiration Date V isits Requested Visits Authorized [id number] New Request 09/26/2023 10/20/2024 1 1 * Radiology (Emergency) - New Request Specialty Diagnoses / Procedures Referred By Contac t Referred To Contact Procedures ECG Evan Burnham MD [address] [facility] [address] [place] [address] Referral ID Status Reason Start Date Expiration Date V isits Requested Visits Authorized [id number] New Request 09/26/2023 10/20/2024 1 1 * Unlisted Procedure Code (Routine) - New Request Specialty Diagnoses / Procedures Referred By Contac t Referred To Contact Procedures NO PHARMACOLOGICAL DVT PROPHYLAXIS Annette Santoyo APRN-CNP [address] [place] [address] Referral ID Status Reason Start Date Expiration Date V isits Requested Visits Authorized [id number] New Request 09/27/2023 10/21/2024 1 1 * Unlisted Procedure Code (Routine) - New Request Specialty Diagnoses / Procedures Referred By Contac t Referred To Contact Procedures DVT/VTE RISK ASSESSMENT Annette Santoyo APRN-CNP [address] [place] [address] Referral ID Status Reason Start Date Expiration Date V isits Requested Visits Authorized [id number] New Request 09/27/2023 10/21/2024 1 1 * Radiology (Routine) - New Request Specialty Diagnoses / Procedures Referred By Contac t Referred To Contact Procedures ECG Annette Santoyo APRN-CNP [address] [place] [address] Referral ID Status Reason Start Date Expiration Date V isits Requested Visits Authorized [id number] New Request 09/27/2023 10/21/2024 1 1 [facility] for referral (narrative)* Diagnostic Procedure Only (Urgent) - Closed Specialty Diagnoses / Procedures Referred By Contac t Referred To Contact US IMAGING Diagnoses Pain in right testicle Procedures US SCROTUM AND CONTENTS US SCROTUM & CONTENTS Barbara Quarles APRN.REBRANDER [address] [place] [address] [place] [address] Referral ID Status Reason Start Date Expiration Date V isits Requested Visits Authorized [id number] Closed Auto-Generate d Referral 11/01/2023 11/30/[address] [facility] for referral (narrative)* Diagnostic Procedure Only (Urgent) - Closed Specialty Diagnoses / Procedures Referred By Contac t Referred To Contact US IMAGING Diagnoses Pain in right testicle Procedures US SCROTUM AND CONTENTS US SCROTUM & CONTENTS Barbara Quarles APRN.REBRANDER [address] [place] [address] [place] [address] Referral ID Status Reason Start Date Expiration Date V isits Requested Visits Authorized [id number] Closed Auto-Generate d Referral 11/01/2023 11/30/[address] [facility] for referral (narrative)* Diagnostic Procedure Only (Routine) - Authorized Specialty Diagnoses / Procedures Referred By Contac t Referred To Contact US IMAGING Diagnoses Neck mass Procedures US HEAD/NECK SOFT TISSUE OTHER US SOFT TISSUE HEAD & NECK REAL TIME IMGE Gypsy Guillory APRN.REBRANDER [address] [place] [address] [place] [address] Referral ID Status Reason Start Date Expiration Date Visits Requested Visits Authorized [id number] Authorized Auto-Generat ed Referral 04/17/2024 05/17/[address] [facility] for referral (narrative)* Diagnostic Procedure Only (Routine) - Closed Specialty Diagnoses / Procedures Referred By Contac t Referred To Contact XR IMAGING Diagnoses Pain Procedures XR HIP BILAT 5V PEL/AP/LAT EACH HIP RADEX HIPS BILATERAL WITH PELVIS MINIMUM 5 VIEWS Gerardo Lopez PA-C [facility] [place] [address] X[facility] [place] [address] Referral ID Status Reason Start Date Expiration Date V isits Requested Visits Authorized [id number] Closed Auto-Generate d Referral 03/15/2021 04/14/[address] [facility] for referral (narrative)* Outpatient Procedure (Routine) - Authorized Specialty Diagnoses / Procedures Referred By Contac t Referred To Contact [facility] Diagnoses Diverticulitis Bloody stools Procedures COLONOSCOPY DIAGNOSTIC COLONOSCOPY FLX DX W/COLLJ SPEC WHEN PFRMD Gilson Bar, DO [address] [place] [address] [facility] [place] [address] [place], [place] [id number] Referral ID Status Reason Start Date Expiration Date Visits Requested Visits Authorized [id number] Authorized Auto-Generat ed Referral 05/08/[address] [facility] for referral (narrative)* Outpatient Procedure (Routine) - Closed Specialty Diagnoses / Procedures Referred By Contac t Referred To Contact [facility] Diagnoses Diverticulitis Bloody stools Procedures COLONOSCOPY DIAGNOSTIC COLONOSCOPY FLX DX W/COLLJ SPEC WHEN PFRMD Gilson Bar, DO [address] [place] [address] [facility] [place] [place] [address] [place], [place] [id number] Referral ID Status Reason Start Date Expiration Date V isits Requested Visits Authorized [id number] Closed Auto-Generate d Referral 05/08/2024 05/08/[address] [facility] for referral (narrative)* Diagnostic Procedure Only (Routine) - Closed Specialty Diagnoses / Procedures Referred By Contac t Referred To Contact XR IMAGING Diagnoses Other closed fracture of proximal end of right fibula, initial encounter Procedures XR TIBIA FIBULA 2V AP/LAT RIGHT RADIOLOGIC EXAMINATION TIBIA & FIBULA 2 VIEWS Tammie Benitez PA-C [address] [place] [address] [place] [address] Referral ID Status Reason Start Date Expiration Date V isits Requested Visits Authorized [id number] Closed Auto-Generate d Referral 07/29/2024 08/28/[address] [facility] for referral (narrative)* Diagnostic Procedure Only (Routine) - New Request Specialty Diagnoses / Procedures Referred By Contac t Referred To Contact XR IMAGING Diagnoses Other closed fracture of proximal end of right fibula, initial encounter Procedures XR TIBIA FIBULA 2V AP/LAT RIGHT RADIOLOGIC EXAMINATION TIBIA & FIBULA 2 VIEWS Tammie Benitez PA-C [address] [place] [address] [place] [address] Referral ID Status Reason Start Date Expiration Date Visits Requested Visits Authorized [id number] New Request Auto-Generat ed Referral 08/20/2024 09/19/[address] [facility] for referral (narrative)No reason for referral information availableWPomerene Hospital Work Phone: Reason for visit Narrative* Diagnostic Procedure Only (Routine) - Closed Specialty Diagnoses / Procedures Referred By Contac t Referred To Contact XR IMAGING Diagnoses Abnormal x-ray of pelvis Procedures XR PELVIS 1V AP RADIOLOGIC EXAMINATION PELVIS 1/2 VIEWS Hardik Spain DO [address] [place] [address] X[facility] Referral ID Status Reason Start Date Expiration Date V isits Requested Visits Authorized [id number] Closed Auto-Generate d Referral 10/13/2021 11/12/[address] [facility] for visit Narrative* Diagnostic Procedure Only (Urgent) - Closed Specialty Diagnoses / Procedures Referred By Contac t Referred To Contact [facility] IM[facility] Diagnoses Pain in right testicle Procedures US SCROTUM AND CONTENTS US SCROTUM & CONTENTS Barbara Quarles, PHYSICIAN UNDERWRITER.REBRANDER [address] [place] [address] [place] [address] Referral ID Status Reason Start Date Expiration Date V isits Requested Visits Authorized [id number] Closed Auto-Generate d Referral 11/01/2023 11/30/[address] [facility] for visit Narrative* Outpatient Procedure (Routine) - Closed Specialty Diagnoses / Procedures Referred By Contac t Referred To Contact [facility] Diagnoses Diverticulitis Bloody stools Procedures COLONOSCOPY DIAGNOSTIC COLONOSCOPY FLX DX W/COLLJ SPEC WHEN PFRMD Gilson Bar, DO [address] [place] [address] [facility] [place] [address] [place] [id number] Referral ID Status Reason Start Date Expiration Date V isits Requested Visits Authorized [id number] Closed Auto-Generate d Referral 05/08/2024 05/08/[address] [facility] for visit Narrative* Diagnostic Procedure Only (Routine) - Closed Specialty Diagnoses / Procedures Referred By Contac t Referred To Contact XR IMAGING Diagnoses Other closed fracture of proximal end of right fibula, initial encounter Procedures XR TIBIA FIBULA 2V AP/LAT RIGHT RADIOLOGIC EXAMINATION TIBIA & FIBULA 2 VIEWS Tammie Benitez PA-C [address] [place] [address] [place] [address] Referral ID Status Reason Start Date Expiration Date V isits Requested Visits Authorized [id number] Closed Auto-Generate d Referral 07/29/2024 08/28/[address] [facility] for visit Narrative* Diagnostic Procedure Only (Routine) - Closed Specialty Diagnoses / Procedures Referred By Adenike ferguson Referred To Contact XR IMAGING Diagnoses Other closed fracture of proximal end of right fibula, initial encounter Procedures XR TIBIA FIBULA 2V AP/LAT RIGHT RADIOLOGIC EXAMINATION TIBIA & FIBULA 2 VIEWS Tammie Benitez PA-C [address] [place] [address] [place] [address] Referral ID Status Reason Start Date Expiration Date V isits Requested Visits Authorized [id number] Closed Auto-Generate d Referral 08/20/2024 09/19/2025 [facility] (Routine) - Closed Specialty Diagnoses / Procedures Referred By Adenike ferguson Referred To Contact [facility] Diagnoses Prostate cancer (HCC) Procedures MRI PROSTATE WO/W IVCON MRI PELVIS W/O & W/CONTRAST MATERIAL Raphael Calderon Jr., MD [address] [place] [address] Phone: tel: fax: [place] [address] Referral ID Status Reason Start Date Expiration Date V isits Requested Visits Authorized [id number] Closed Auto-Generate d Referral 03/12/2024 04/11/2025 1 1 [facility] Summary Purpose Family History No Family History Records Found Relationship Condition Age at Onset Recorded Date/T сергей Not Specified Diabetes mellitus Unknown Relationship Condition Age at Onset Recorded Date/T сергей Not Specified Diabetes mellitus Unknown Malignant neoplasm Unknown Advance Directives No Advanced Directives Records FoundDocuments on File Type Date 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 Advance Directive(s) Advance Directive(s) 09/22/2021 12:25 PM Advance Directive(s) 09/07/2021 11:52 AM Advance Directive(s) 02/09/2019 9:49 PM Documents on File Type Date Recorded 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 Advance Directive(s) Advance Directive(s) 09/22/2021 12:25 PM Advance Directive(s) 09/07/2021 11:52 AM Advance Directive(s) 02/09/2019 9:49 PM Advance Directive Response Recorded Date/ Time Advance Directives No March 12:14pm Living Will No February 27, 2022 12:43pm Power of Subway Train Driver No February 27 12:43pm Advance Directive Response Recorded Date/ Time Advance Directives No March 12:14pm Living Will No February 27, 2022 6:01pm Power of Subway Train Driver No February 27 6:01pm Latest Code Status on File Code Status Date Activated Date Inactivated Comments Full Code 09/27/2023 12:30 AM Advance Directive Response Recorded Date/ Time Living Will No July 22, 7:04pm Do you have a Healthcare Power of Subway Train Driver? No July 22, 2024 7:04pm Living Will No November 05, 2024 8:19pm Do you have a Healthcare Power of Subway Train Driver? No November 05, 2024 8:19pm Advance Directives No March 12:14pm Chief Complaint and Reason for Visit Chief Complaint ANXIETY Chief Complaint CP RX HERE Chief Complaint Admit Date CALF PAIN July 22, 2024 3:32pm DENTAL PAIN November 05, 2024 6:1 3pm Reason for Referral Specialty Diagnoses / Procedures Referred By Contac t Referred To Contact Neurology Diagnoses Cerebral palsy, unspecified type (HCC) Procedures CONSULT TO NEUROLOGY OFFICE/OUTPATIENT [facility] 60-74 MINUTES Mathew Cobian MD [address] [place] [address] Referral ID Status Reason Start Date Expiration Date Visits Requested Visits Authorized [id number] Authorized PCP Requested Referral 2 06/07/2023 1 1 Specialty Diagnoses / Procedures Referred By Contac t Referred To Contact Rheumatology Diagnoses HLA B27 (HLA B27 positive) Procedures CONSULT TO RHEUM/IMMUN DISEASE OFFICE/OUTPATIENT [facility] 60-74 MINUTES Mathew Cobian MD [address] [place] [address] Referral ID Status Reason Start Date Expiration Date Visits Requested Visits Authorized [id number] Authorized PCP Requested Referral 2 06/07/2023 1 1 Specialty Diagnoses / Procedures Referred By Contac t Referred To Contact Pain Management Diagnoses Chronic bilateral low back pain with right-sided sciatica Procedures CONSULT TO PAIN MGT OFFICE/OUTPATIENT [facility] 60-74 MINUTES Mathew Cobian MD [address] [place] [address] Referral ID Status Reason Start Date Expiration Date Visits Requested Visits Authorized [id number] Authorized PCP Requested Referral 03/16/2023 03/15/2024 1 1 Specialty Diagnoses / Procedures Referred By Contac t Referred To Contact Diagnoses JODEE (obstructive sleep apnea) Procedures CONSULT TO SLEEP MEDICINE - ADULT OFFICE/OUTPATIENT [facility] 60 MINUTES Gypsy Syed APRN.CNP [address] [place] [address] Referral ID Status Reason Start Date Expiration Date Visits Requested Visits Authorized [id number] Authorized PCP Requested Referral 09/14/2023 09/13/2024 1 1 Specialty Diagnoses / Procedures Referred By Contac t Referred To Contact Ent - Otolaryngology Diagnoses Dizziness Procedures CONSULT TO ENT OFFICE/OUTPATIENT [facility] 60 MINUTES Mathew Cobian MD [address] [place] [address] Referral ID Status Reason Start Date Expiration Date Visits Requested Visits Authorized [id number] Authorized PCP Requested Referral 10/17/2023 10/16/2024 1 1 Specialty Diagnoses / Procedures Referred By Contac t Referred To Contact [facility] Diagnoses Chronic bilateral low back pain with right-sided sciatica Cerebral palsy, unspecified type (HCC) Procedures CONSULT TO PHYSICAL THERAPY PHYSICAL THERAPY EVALUATION HIGH COMPLEX 45 MINS Mathew Cobian MD [address] [place] [address] [facility] [place] [address] [place] [address] Referral ID Status Reason Start Date Expiration Date Visits Requested Visits Authorized [id number] Authorized PCP Requested Referral Auto-Generate d Referral 10/17/2023 10/16/2024 99 99 Specialty Diagnoses / Procedures Referred By Contac t Referred To Contact Pain Management Diagnoses Chronic bilateral low back pain with right-sided sciatica Procedures CONSULT TO PAIN MGT OFFICE/OUTPATIENT [facility] 60 MINUTES Mathew Cobian MD [address] [place] [address] Referral ID Status Reason Start Date Expiration Date Visits Requested Visits Authorized [id number] Authorized PCP Requested Referral 10/17/2023 10/16/2024 1 1 Specialty Diagnoses / Procedures Referred By Contac t Referred To Contact General Surgery Diagnoses Screening for colon cancer Procedures CONSULT TO GENERAL SURGERY OFFICE/OUTPATIENT [facility] 60 MINUTES Mathew Cobian MD [address] [place] [address] Referral ID Status Reason Start Date Expiration Date Visits Requested Visits Authorized [id number] Authorized PCP Requested Referral 10/17/2023 10/16/2024 1 1 Specialty Diagnoses / Procedures Referred By Contac t Referred To Contact Neurology Diagnoses Memory changes Procedures CONSULT TO NEUROLOGY OFFICE/OUTPATIENT [facility] MDM 60 MINUTES Gypsy Syed APRN.REBRANDER [address] [place] [address] Referral ID Status Reason Start Date Expiration Date Visits Requested Visits Authorized [id number] Authorized PCP Requested Referral 12/14/2023 12/13/2024 1 1 Specialty Diagnoses / Procedures Referred By Contac t Referred To Contact MR IMAGING Diagnoses Prostate cancer (HCC) Procedures MRI PROSTATE WO/W IVCON MRI PELVIS W/O & W/CONTRAST MATERIAL Raphael Calderon Jr., MD [facility] [place] [address] [place] [address] Referral ID Status Reason Start Date Expiration Date Visits Requested Visits Authorized [id number] Authorized Auto-Generat ed Referral 03/12/2024 04/11/2025 1 1 Specialty Diagnoses / Procedures Referred By Contac t Referred To Contact Ent - Otolaryngology Diagnoses Dizziness and giddiness Procedures CONSULT TO ENT OFFICE/OUTPATIENT [facility] MDM 60 MINUTES Brian Ahmadi APRN.REBRANDER [address] [place] [address] Referral ID Status Reason Start Date Expiration Date Visits Requested Visits Authorized [id number] Authorized PCP Requested Referral 04/04/2024 04/04/2025 1 1 Specialty Diagnoses / Procedures Referred By Contac t Referred To Contact General Surgery Diagnoses Diverticulitis Bloody stools Procedures CONSULT TO GENERAL SURGERY OFFICE/OUTPATIENT [facility] 60 MINUTES Brian Ahmadi, PHYSICIAN UNDERWRITER.REBRANDER [address] [place] [address] Referral ID Status Reason Start Date Expiration Date Visits Requested Visits Authorized [id number] Authorized PCP Requested Referral 04/30/2024 04/30/2025 1 1 Specialty Diagnoses / Procedures Referred By Contac t Referred To Contact Neurosurgery Diagnoses Confusion Procedures CONSULT TO NEUROSURGERY OFFICE/OUTPATIENT [facility] 60 MINUTES Devi Cisse MD [address] [place] [address] Referral ID Status Reason Start Date Expiration Date Visits Requested Visits Authorized [id number] Authorized PCP Requested Referral 4 06/03/2025 1 1 Specialty Diagnoses / Procedures Referred By Contac t Referred To Contact [facility] Diagnoses Confusion Procedures EPIL EEG ROUTINE ELECTROENCEPHALOGRAM REC COMA/SLEEP ONLY Devi Cisse MD [address] [place] [address] [facility] [place] [address] [place] [address] Referral ID Status Reason Start Date Expiration Date Visits Requested Visits Authorized [id number] New Request Auto-Generat ed Referral 4 06/03/2025 1 1 Additional Source Comments (unrecognized sect ion and content) No Status Records FoundNo Status Records FoundNo Status Records FoundNo Status Records FoundNo Status Records FoundNo Status Records FoundNo Status Records FoundNo Status Records Found INFORMATION SOURCE (unrecogn ized section and content) DATE CREATED AUTHOR 06/28/2019 [facility] DATE CREATED AUTHOR AUTHOR'S ORGANIZ ATION 10/08/2023 [facility] DATE CREATED AUTHOR AUTHOR'S ORGANIZ ATION 10/12/2023 [facility] DATE CREATED AUTHOR AUTHOR'S ORGANIZ ATION 05/16/2024 [facility] DATE CREATED AUTHOR AUTHOR'S ORGANIZ ATION 08/02/2024 [facility] DATE CREATED AUTHOR AUTHOR'S ORGANIZ ATION 11/02/2024 [facility] DATE CREATED AUTHOR AUTHOR'S ORGANIZ ATION 11/10/2024 [facility] DATE CREATED AUTHOR AUTHOR'S ORGANIZ ATION 01/18/2025 [facility] Source Comments (unrecognize d section and content) In the event this informatio n is protected by the Federal Confidentiality of Alcohol and Drug Abuse Patient Records regulations: The Federal rules restrict any use of the information to criminally investigate or prosecute any alcohol or drug abuse patient.[facility] the event this information is protected by the Federal Confidentiality of Alcohol and Drug Abuse Patient Records regulations: The Federal rules restrict any use of the information to criminally investigate or prosecute any alcohol or drug abuse patient.[facility] the event this information is protected by the Federal Confidentiality of Alcohol and Drug Abuse Patient Records regulations: The Federal rules restrict any use of the information to criminally investigate or prosecute any alcohol or drug abuse patient.[facility] the event this information is protected by the Federal Confidentiality of Alcohol and Drug Abuse Patient Records regulations: The Federal rules restrict any use of the information to criminally investigate or prosecute any alcohol or drug abuse patient.[facility] the event this information is protected by the Federal Confidentiality of Alcohol and Drug Abuse Patient Records regulations: The Federal rules restrict any use of the information to criminally investigate or prosecute any alcohol or drug abuse patient.[facility] the event this information is protected by the Federal Confidentiality of Alcohol and Drug Abuse Patient Records regulations: The Federal rules restrict any use of the information to criminally investigate or prosecute any alcohol or drug abuse patient.[facility] the event this information is protected by the Federal Confidentiality of Alcohol and Drug Abuse Patient Records regulations: The Federal rules restrict any use of the information to criminally investigate or prosecute any alcohol or drug abuse patient.[facility] the event this information is protected by the Federal Confidentiality of Alcohol and Drug Abuse Patient Records regulations: The Federal rules restrict any use of the information to criminally investigate or prosecute any alcohol or drug abuse patient.[facility] the event this information is protected by the Federal Confidentiality of Alcohol and Drug Abuse Patient Records regulations: The Federal rules restrict any use of the information to criminally investigate or prosecute any alcohol or drug abuse patient.[facility] the event this information is protected by the Federal Confidentiality of Alcohol and Drug Abuse Patient Records regulations: The Federal rules restrict any use of the information to criminally investigate or prosecute any alcohol or drug abuse patient.[facility] the event this information is protected by the Federal Confidentiality of Alcohol and Drug Abuse Patient Records regulations: The Federal rules restrict any use of the information to criminally investigate or prosecute any alcohol or drug abuse patient.[facility] the event this information is protected by the Federal Confidentiality of Alcohol and Drug Abuse Patient Records regulations: The Federal rules restrict any use of the information to criminally investigate or prosecute any alcohol or drug abuse patient.[facility] the event this information is protected by the Federal Confidentiality of Alcohol and Drug Abuse Patient Records regulations: The Federal rules restrict any use of the information to criminally investigate or prosecute any alcohol or drug abuse patient.[facility]In the event this information is protected by the Federal Confidentiality of Alcohol and Drug Abuse Patient Records regulations: The Federal rules restrict any use of the information to criminally investigate or prosecute any alcohol or drug abuse patient.[facility] the event this information is protected by the Federal Confidentiality of Alcohol and Drug Abuse Patient Records regulations: The Federal rules restrict any use of the information to criminally investigate or prosecute any alcohol or drug abuse patient.[facility] HospitalIn the event this information is protected by the Federal Confidentiality of Alcohol and Drug Abuse Patient Records regulations: The Federal rules restrict any use of the information to criminally investigate or prosecute any alcohol or drug abuse patient.[facility] HospitalIn the event this information is protected by the Federal Confidentiality of Alcohol and Drug Abuse Patient Records regulations: The Federal rules restrict any use of the information to criminally investigate or prosecute any alcohol or drug abuse patient.[facility] HospitalIn the event this information is protected by the Federal Confidentiality of Alcohol and Drug Abuse Patient Records regulations: The Federal rules restrict any use of the information to criminally investigate or prosecute any alcohol or drug abuse patient.[facility] Hospital[facility] the event this information is protected by the Federal Confidentiality of Alcohol and Drug Abuse Patient Records regulations: The Federal rules restrict any use of the information to criminally investigate or prosecute any alcohol or drug abuse patient.[facility] HospitalIn the event this information is protected by the Federal Confidentiality of Alcohol and Drug Abuse Patient Records regulations: The Federal rules restrict any use of the information to criminally investigate or prosecute any alcohol or drug abuse patient.[facility] HospitalIn the event this information is protected by the Federal Confidentiality of Alcohol and Drug Abuse Patient Records regulations: The Federal rules restrict any use of the information to criminally investigate or prosecute any alcohol or drug abuse patient.[facility] HospitalIn the event this information is protected by the Federal Confidentiality of Alcohol and Drug Abuse Patient Records regulations: The Federal rules restrict any use of the information to criminally investigate or prosecute any alcohol or drug abuse patient.[facility] HospitalIn the event this information is protected by the Federal Confidentiality of Alcohol and Drug Abuse Patient Records regulations: The Federal rules restrict any use of the information to criminally investigate or prosecute any alcohol or drug abuse patient.[facility] HospitalIn the event this information is protected by the Federal Confidentiality of Alcohol and Drug Abuse Patient Records regulations: The Federal rules restrict any use of the information to criminally investigate or prosecute any alcohol or drug abuse patient.[facility] HospitalIn the event this information is protected by the Federal Confidentiality of Alcohol and Drug Abuse Patient Records regulations: The Federal rules restrict any use of the information to criminally investigate or prosecute any alcohol or drug abuse patient.[facility] HospitalIn the event this information is protected by the Federal Confidentiality of Alcohol and Drug Abuse Patient Records regulations: The Federal rules restrict any use of the information to criminally investigate or prosecute any alcohol or drug abuse patient.[facility] HospitalIn the event this information is protected by the Federal Confidentiality of Alcohol and Drug Abuse Patient Records regulations: The Federal rules restrict any use of the information to criminally investigate or prosecute any alcohol or drug abuse patient.[facility] HospitalIn the event this information is protected by the Federal Confidentiality of Alcohol and Drug Abuse Patient Records regulations: The Federal rules restrict any use of the information to criminally investigate or prosecute any alcohol or drug abuse patient.[facility] HospitalIn the event this information is protected by the Federal Confidentiality of Alcohol and Drug Abuse Patient Records regulations: The Federal rules restrict any use of the information to criminally investigate or prosecute any alcohol or drug abuse patient.[facility] HospitalIn the event this information is protected by the Federal Confidentiality of Alcohol and Drug Abuse Patient Records regulations: The Federal rules restrict any use of the information to criminally investigate or prosecute any alcohol or drug abuse patient.[facility] HospitalIn the event this information is protected by the Federal Confidentiality of Alcohol and Drug Abuse Patient Records regulations: The Federal rules restrict any use of the information to criminally investigate or prosecute any alcohol or drug abuse patient.[facility]In the event this information is protected by the Federal Confidentiality of Alcohol and Drug Abuse Patient Records regulations: The Federal rules restrict any use of the information to criminally investigate or prosecute any alcohol or drug abuse patient.[facility] HospitalIn the event this information is protected by the Federal Confidentiality of Alcohol and Drug Abuse Patient Records regulations: The Federal rules restrict any use of the information to criminally investigate or prosecute any alcohol or drug abuse patient.[facility] HospitalIn the event this information is protected by the Federal Confidentiality of Alcohol and Drug Abuse Patient Records regulations: The Federal rules restrict any use of the information to criminally investigate or prosecute any alcohol or drug abuse patient.[facility] HospitalIn the event this information is protected by the Federal Confidentiality of Alcohol and Drug Abuse Patient Records regulations: The Federal rules restrict any use of the information to criminally investigate or prosecute any alcohol or drug abuse patient.[facility] HospitalIn the event this information is protected by the Federal Confidentiality of Alcohol and Drug Abuse Patient Records regulations: The Federal rules restrict any use of the information to criminally investigate or prosecute any alcohol or drug abuse patient.[facility] HospitalIn the event this information is protected by the Federal Confidentiality of Alcohol and Drug Abuse Patient Records regulations: The Federal rules restrict any use of the information to criminally investigate or prosecute any alcohol or drug abuse patient.[facility] HospitalIn the event this information is protected by the Federal Confidentiality of Alcohol and Drug Abuse Patient Records regulations: The Federal rules restrict any use of the information to criminally investigate or prosecute any alcohol or drug abuse patient.[facility] HospitalIn the event this information is protected by the Federal Confidentiality of Alcohol and Drug Abuse Patient Records regulations: The Federal rules restrict any use of the information to criminally investigate or prosecute any alcohol or drug abuse patient.[facility] HospitalIn the event this information is protected by the Federal Confidentiality of Alcohol and Drug Abuse Patient Records regulations: The Federal rules restrict any use of the information to criminally investigate or prosecute any alcohol or drug abuse patient.[facility] HospitalIn the event this information is protected by the Federal Confidentiality of Alcohol and Drug Abuse Patient Records regulations: The Federal rules restrict any use of the information to criminally investigate or prosecute any alcohol or drug abuse patient.[facility] HospitalIn the event this information is protected by the Federal Confidentiality of Alcohol and Drug Abuse Patient Records regulations: The Federal rules restrict any use of the information to criminally investigate or prosecute any alcohol or drug abuse patient.[facility] HospitalIn the event this information is protected by the Federal Confidentiality of Alcohol and Drug Abuse Patient Records regulations: The Federal rules restrict any use of the information to criminally investigate or prosecute any alcohol or drug abuse patient.[facility] HospitalIn the event this information is protected by the Federal Confidentiality of Alcohol and Drug Abuse Patient Records regulations: The Federal rules restrict any use of the information to criminally investigate or prosecute any alcohol or drug abuse patient.[facility] HospitalIn the event this information is protected by the Federal Confidentiality of Alcohol and Drug Abuse Patient Records regulations: The Federal rules restrict any use of the information to criminally investigate or prosecute any alcohol or drug abuse patient.[facility] HospitalIn the event this information is protected by the Federal Confidentiality of Alcohol and Drug Abuse Patient Records regulations: The Federal rules restrict any use of the information to criminally investigate or prosecute any alcohol or drug abuse patient.[facility] HospitalIn the event this information is protected by the Federal Confidentiality of Alcohol and Drug Abuse Patient Records regulations: The Federal rules restrict any use of the information to criminally investigate or prosecute any alcohol or drug abuse patient.[facility] HospitalIn the event this information is protected by the Federal Confidentiality of Alcohol and Drug Abuse Patient Records regulations: The Federal rules restrict any use of the information to criminally investigate or prosecute any alcohol or drug abuse patient.[facility] HospitalIn the event this information is protected by the Federal Confidentiality of Alcohol and Drug Abuse Patient Records regulations: The Federal rules restrict any use of the information to criminally investigate or prosecute any alcohol or drug abuse patient.[facility] HospitalIn the event this information is protected by the Federal Confidentiality of Alcohol and Drug Abuse Patient Records regulations: The Federal rules restrict any use of the information to criminally investigate or prosecute any alcohol or drug abuse patient.[facility] HospitalIn the event this information is protected by the Federal Confidentiality of Alcohol and Drug Abuse Patient Records regulations: The Federal rules restrict any use of the information to criminally investigate or prosecute any alcohol or drug abuse patient.[facility] HospitalIn the event this information is protected by the Federal Confidentiality of Alcohol and Drug Abuse Patient Records regulations: The Federal rules restrict any use of the information to criminally investigate or prosecute any alcohol or drug abuse patient.[facility] HospitalIn the event this information is protected by the Federal Confidentiality of Alcohol and Drug Abuse Patient Records regulations: The Federal rules restrict any use of the information to criminally investigate or prosecute any alcohol or drug abuse patient.[facility] HospitalIn the event this information is protected by the Federal Confidentiality of Alcohol and Drug Abuse Patient Records regulations: The Federal rules restrict any use of the information to criminally investigate or prosecute any alcohol or drug abuse patient.[facility] HospitalIn the event this information is protected by the Federal Confidentiality of Alcohol and Drug Abuse Patient Records regulations: The Federal rules restrict any use of the information to criminally investigate or prosecute any alcohol or drug abuse patient.[facility] HospitalIn the event this information is protected by the Federal Confidentiality of Alcohol and Drug Abuse Patient Records regulations: The Federal rules restrict any use of the information to criminally investigate or prosecute any alcohol or drug abuse patient.[facility] HospitalIn the event this information is protected by the Federal Confidentiality of Alcohol and Drug Abuse Patient Records regulations: The Federal rules restrict any use of the information to criminally investigate or prosecute any alcohol or drug abuse patient.[facility] HospitalIn the event this information is protected by the Federal Confidentiality of Alcohol and Drug Abuse Patient Records regulations: The Federal rules restrict any use of the information to criminally investigate or prosecute any alcohol or drug abuse patient.[facility] HospitalIn the event this information is protected by the Federal Confidentiality of Alcohol and Drug Abuse Patient Records regulations: The Federal rules restrict any use of the information to criminally investigate or prosecute any alcohol or drug abuse patient.[facility] HospitalIn the event this information is protected by the Federal Confidentiality of Alcohol and Drug Abuse Patient Records regulations: The Federal rules restrict any use of the information to criminally investigate or prosecute any alcohol or drug abuse patient.[facility] HospitalIn the event this information is protected by the Federal Confidentiality of Alcohol and Drug Abuse Patient Records regulations: The Federal rules restrict any use of the information to criminally investigate or prosecute any alcohol or drug abuse patient.[facility] HospitalIn the event this information is protected by the Federal Confidentiality of Alcohol and Drug Abuse Patient Records regulations: The Federal rules restrict any use of the information to criminally investigate or prosecute any alcohol or drug abuse patient.[facility] HospitalIn the event this information is protected by the Federal Confidentiality of Alcohol and Drug Abuse Patient Records regulations: The Federal rules restrict any use of the information to criminally investigate or prosecute any alcohol or drug abuse patient.[facility] HospitalIn the event this information is protected by the Federal Confidentiality of Alcohol and Drug Abuse Patient Records regulations: The Federal rules restrict any use of the information to criminally investigate or prosecute any alcohol or drug abuse patient.[facility] HospitalIn the event this information is protected by the Federal Confidentiality of Alcohol and Drug Abuse Patient Records regulations: The Federal rules restrict any use of the information to criminally investigate or prosecute any alcohol or drug abuse patient.[facility] HospitalIn the event this information is protected by the Federal Confidentiality of Alcohol and Drug Abuse Patient Records regulations: The Federal rules restrict any use of the information to criminally investigate or prosecute any alcohol or drug abuse patient.[facility] HospitalIn the event this information is protected by the Federal Confidentiality of Alcohol and Drug Abuse Patient Records regulations: The Federal rules restrict any use of the information to criminally investigate or prosecute any alcohol or drug abuse patient.[facility] HospitalIn the event this information is protected by the Federal Confidentiality of Alcohol and Drug Abuse Patient Records regulations: The Federal rules restrict any use of the information to criminally investigate or prosecute any alcohol or drug abuse patient.[facility] HospitalIn the event this information is protected by the Federal Confidentiality of Alcohol and Drug Abuse Patient Records regulations: The Federal rules restrict any use of the information to criminally investigate or prosecute any alcohol or drug abuse patient.[facility] HospitalIn the event this information is protected by the Federal Confidentiality of Alcohol and Drug Abuse Patient Records regulations: The Federal rules restrict any use of the information to criminally investigate or prosecute any alcohol or drug abuse patient.[facility] HospitalIn the event this information is protected by the Federal Confidentiality of Alcohol and Drug Abuse Patient Records regulations: The Federal rules restrict any use of the information to criminally investigate or prosecute any alcohol or drug abuse patient.[facility] HospitalIn the event this information is protected by the Federal Confidentiality of Alcohol and Drug Abuse Patient Records regulations: The Federal rules restrict any use of the information to criminally investigate or prosecute any alcohol or drug abuse patient.[facility] HospitalIn the event this information is protected by the Federal Confidentiality of Alcohol and Drug Abuse Patient Records regulations: The Federal rules restrict any use of the information to criminally investigate or prosecute any alcohol or drug abuse patient.[facility] HospitalIn the event this information is protected by the Federal Confidentiality of Alcohol and Drug Abuse Patient Records regulations: The Federal rules restrict any use of the information to criminally investigate or prosecute any alcohol or drug abuse patient.[facility] HospitalIn the event this information is protected by the Federal Confidentiality of Alcohol and Drug Abuse Patient Records regulations: The Federal rules restrict any use of the information to criminally investigate or prosecute any alcohol or drug abuse patient.[facility] HospitalIn the event this information is protected by the Federal Confidentiality of Alcohol and Drug Abuse Patient Records regulations: The Federal rules restrict any use of the information to criminally investigate or prosecute any alcohol or drug abuse patient.[facility] HospitalIn the event this information is protected by the Federal Confidentiality of Alcohol and Drug Abuse Patient Records regulations: The Federal rules restrict any use of the information to criminally investigate or prosecute any alcohol or drug abuse patient.[facility] HospitalIn the event this information is protected by the Federal Confidentiality of Alcohol and Drug Abuse Patient Records regulations: The Federal rules restrict any use of the information to criminally investigate or prosecute any alcohol or drug abuse patient.[facility] HospitalIn the event this information is protected by the Federal Confidentiality of Alcohol and Drug Abuse Patient Records regulations: The Federal rules restrict any use of the information to criminally investigate or prosecute any alcohol or drug abuse patient.[facility] HospitalIn the event this information is protected by the Federal Confidentiality of Alcohol and Drug Abuse Patient Records regulations: The Federal rules restrict any use of the information to criminally investigate or prosecute any alcohol or drug abuse patient.[facility] HospitalIn the event this information is protected by the Federal Confidentiality of Alcohol and Drug Abuse Patient Records regulations: The Federal rules restrict any use of the information to criminally investigate or prosecute any alcohol or drug abuse patient.[facility] HospitalIn the event this information is protected by the Federal Confidentiality of Alcohol and Drug Abuse Patient Records regulations: The Federal rules restrict any use of the information to criminally investigate or prosecute any alcohol or drug abuse patient.[facility] HospitalIn the event this information is protected by the Federal Confidentiality of Alcohol and Drug Abuse Patient Records regulations: The Federal rules restrict any use of the information to criminally investigate or prosecute any alcohol or drug abuse patient.[facility] HospitalIn the event this information is protected by the Federal Confidentiality of Alcohol and Drug Abuse Patient Records regulations: The Federal rules restrict any use of the information to criminally investigate or prosecute any alcohol or drug abuse patient.[facility] HospitalIn the event this information is protected by the Federal Confidentiality of Alcohol and Drug Abuse Patient Records regulations: The Federal rules restrict any use of the information to criminally investigate or prosecute any alcohol or drug abuse patient.[facility] HospitalIn the event this information is protected by the Federal Confidentiality of Alcohol and Drug Abuse Patient Records regulations: The Federal rules restrict any use of the information to criminally investigate or prosecute any alcohol or drug abuse patient.[facility] HospitalIn the event this information is protected by the Federal Confidentiality of Alcohol and Drug Abuse Patient Records regulations: The Federal rules restrict any use of the information to criminally investigate or prosecute any alcohol or drug abuse patient.[facility] HospitalIn the event this information is protected by the Federal Confidentiality of Alcohol and Drug Abuse Patient Records regulations: The Federal rules restrict any use of the information to criminally investigate or prosecute any alcohol or drug abuse patient.[facility] HospitalIn the event this information is protected by the Federal Confidentiality of Alcohol and Drug Abuse Patient Records regulations: The Federal rules restrict any use of the information to criminally investigate or prosecute any alcohol or drug abuse patient.[facility] HospitalIn the event this information is protected by the Federal Confidentiality of Alcohol and Drug Abuse Patient Records regulations: The Federal rules restrict any use of the information to criminally investigate or prosecute any alcohol or drug abuse patient.[facility] HospitalIn the event this information is protected by the Federal Confidentiality of Alcohol and Drug Abuse Patient Records regulations: The Federal rules restrict any use of the information to criminally investigate or prosecute any alcohol or drug abuse patient.[facility] HospitalIn the event this information is protected by the Federal Confidentiality of Alcohol and Drug Abuse Patient Records regulations: The Federal rules restrict any use of the information to criminally investigate or prosecute any alcohol or drug abuse patient.[facility] HospitalIn the event this information is protected by the Federal Confidentiality of Alcohol and Drug Abuse Patient Records regulations: The Federal rules restrict any use of the information to criminally investigate or prosecute any alcohol or drug abuse patient.[facility] HospitalIn the event this information is protected by the Federal Confidentiality of Alcohol and Drug Abuse Patient Records regulations: The Federal rules restrict any use of the information to criminally investigate or prosecute any alcohol or drug abuse patient.[facility] HospitalIn the event this information is protected by the Federal Confidentiality of Alcohol and Drug Abuse Patient Records regulations: The Federal rules restrict any use of the information to criminally investigate or prosecute any alcohol or drug abuse patient.[facility] HospitalIn the event this information is protected by the Federal Confidentiality of Alcohol and Drug Abuse Patient Records regulations: The Federal rules restrict any use of the information to criminally investigate or prosecute any alcohol or drug abuse patient.[facility] HospitalIn the event this information is protected by the Federal Confidentiality of Alcohol and Drug Abuse Patient Records regulations: The Federal rules restrict any use of the information to criminally investigate or prosecute any alcohol or drug abuse patient.[facility] HospitalIn the event this information is protected by the Federal Confidentiality of Alcohol and Drug Abuse Patient Records regulations: The Federal rules restrict any use of the information to criminally investigate or prosecute any alcohol or drug abuse patient.[facility] HospitalIn the event this information is protected by the Federal Confidentiality of Alcohol and Drug Abuse Patient Records regulations: The Federal rules restrict any use of the information to criminally investigate or prosecute any alcohol or drug abuse patient.[facility] HospitalIn the event this information is protected by the Federal Confidentiality of Alcohol and Drug Abuse Patient Records regulations: The Federal rules restrict any use of the information to criminally investigate or prosecute any alcohol or drug abuse patient.[facility] Reason for Visit (unrecogniz ed section and content) Reason Comments Consult Specialty Diagnoses / Procedures Referred By Contac t Referred To Contact General Surgery Diagnoses Diverticulitis Bloody stools Procedures CONSULT TO GENERAL SURGERY OFFICE/OUTPATIENT NEW HIGH MDM 60 MINUTES Brian Ahmadi APRN.[facility] [address] [place] [address] Referral ID Status Reason Start Date Expiration Date V isits Requested Visits Authorized [id number] Closed PCP Requested Referral 04/30/2024 04/30/2025 1 1 Reason Comments HHC and POC Reason Onset Date Comments Refill Request 11/26/2021 Reason Comments Blood Pressure Reason Onset Date Comments Refill Request 12/13/2021 Reason Comments Patient Update home health Reason Comments Established Patient Reason Comments Results Pelvic x-ray Reason Comments Patient Update verble order for pt Reason Onset Date Comments Transition Of Care 03/02/2022 Reason Comments Refill Request Reason Comments Follow Up Reason Comments Patient Question Reason Comments Follow Up Reason Comments Results Reason Onset Date Comments Refill Request 07/22/2022 Reason Onset Date Comments Refill Request 09/16/2022 Reason Comments Lab Orders Reason Comments Forms [employer] re: JODEE busch pplies Reason Comments Letter Reason Comments Letter Forms Reason Comments Referral Request Reason Comments UTI s/s Reason Comments UTI Frequency, burning, incontinence x 1 day Reason Comments FYI-No Action Needed Dr. Conklin's offic e will not see pt Reason Comments Forms Reason Comments Forms [facility] Reason Comments Acute Visit trouble sleeping /pr oblems with c-pap Reason Comments Results Labs Orders Reason Comments Patient Update Reason Comments Dizziness Specialty Diagnoses / Procedures Referred By Contac t Referred To Contact Diagnoses Stroke Level A Head Bleed/Stroke [facility] [address] [place] [address] [facility] [address] [place] [address] Referral ID Status Reason Start Date Expiration Date Visits Re quested Visits Authorized [id number] 1 1 Reason Comments Patient Update FYI-No Action Needed Reason Onset Date Comments 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 Ear Problem Patient asking if we can check ears to check. Reason Comments Results Labs Reason Comments Rash Possible ring worm o n left ankle found this morning Reason Comments Appointment Patient Question Reason Comments Established Patient 6 month follow up/PS A Reason Comments Follow Up TSH Reason Comments Follow Up 4 week Reason Comments Follow Up Thyroid issus Reason Comments Rectal Bleeding Reason Onset Date Comments Refill Request 04/24/2024 Reason Comments Radio Gen RMP Specialty Diagnoses / Procedures Referred By Contac t Referred To Contact XR IMAGING Diagnoses Pain Procedures XR HIP BILAT 5V PEL/AP/LAT EACH HIP RADEX HIPS BILATERAL WITH PELVIS MINIMUM 5 VIEWS Gerardo Lopez PA-C [address] [address] [facility] [place] [address] Referral ID Status Reason Start Date Expiration Date V isits Requested Visits Authorized Closed Auto-Generate d Referral 03/15/2021 04/14/2022 1 1 Reason Comments ER F/U [facility] ER diverticuliti s 04/23/2024 Reason Onset Date Comments Transition Of Care 05/14/2024 TCM Initial H ospital Discharge [place] 05/13/24 Reason Comments Trauma Fell on tread mill, and hit shins and hav wounds on bilat ankles, x 20 mins Reason Comments Appointment Reason Comments Referral Request Reason Comments New Patient Reason Comments Forms Apt modification for m Reason Comments Follow Up 3 month Reason Comments [facility] ER f/u Reason Comments Hospital Follow Up Reason Comments New Fracture Reason Onset Date Comments Refill Request 08/06/2024 Reason Comments Established Patient Follow Up Reason Onset Date Comments Results 10/31/2024 Reason Comments Sore Throat Reason Comments Sore Throat Possible strep throa t started this morning Reason Comments Derm Problem Skin tags Diverticulitis Reason Comments Medication Question Reason Comments Follow Up Reason Comments Rectal Problem Care Teams (unrecognized sec tion and content) Dental Mechanic Relationship Specialty Start Date End Date Mathew Cobian MD [address] [place] [address] PCP - General 09/22/08 Dental Mechanic Relationship Specialty Start Date End Date Mathew Cobian MD [address] [place] [address] PCP - General 09/22/08 Dental Mechanic Relationship Specialty Start Date End Date Mathew Cobian MD [address] [place] [address] PCP - General 09/22/08 Dental Mechanic Relationship Specialty Start Date End Date Mathew Cobian MD [address] [place] [address] PCP - General 09/22/08 Dental Mechanic Relationship Specialty Start Date End Date Mathew Cobian MD [address] [place] [address] PCP - General 09/22/08 Dental Mechanic Relationship Specialty Start Date End Date Mathew Cobian MD [address] [place] [address] PCP - General 09/22/08 Dental Mechanic Relationship Specialty Start Date End Date Mathew Cobian MD [address] [place] [address] PCP - General 09/22/08 Dental Mechanic Relationship Specialty Start Date End Date Mathew Cobian MD [address] [place] [address] PCP - General 09/22/08 Dental Mechanic Relationship Specialty Start Date End Date Mathew Cobian MD [address] [place] [address] PCP - General 09/22/08 Dental Mechanic Relationship Specialty Start Date End Date Mathew Cobian MD [address] [place] [address] PCP - General 09/22/08 Dental Mechanic Relationship Specialty Start Date End Date Mathew Cobian MD [address] [place] [address] PCP - General 09/22/08 Dental Mechanic Relationship Specialty Start Date End Date Mathew Cobian MD [address] [facility] [place] [address] PCP - General 09/22/08 Dental Mechanic Relationship Specialty Start Date End Date Mathew Cobian MD [address] [facility] [place] [address] PCP - General 09/22/08 Dental Mechanic Relationship Specialty Start Date End Date Mathew Cobian MD [address] [place] [address] PCP - General 09/22/08 Dental Mechanic Relationship Specialty Start Date End Date Mathew Cobian MD [address] [place] [address] PCP - General 09/22/08 Team Status: Active Member Role Status Dates Dr. Mathew Cobian MD Family Provider Active Dr. Mathew Cobian MD Primary Care Provider Active Team Status: Inactive Member Role Status Dates Dr. Mathew Cobian MD Primary Care Pr ovider, Attending Provider, Referring Provider Active Dental Mechanic Relationship Specialty Start Date End Date Mathew Cobian MD [address] [facility] [place] [address] PCP - General 09/22/08 Dental Mechanic Relationship Specialty Start Date End Date Mathew Cobian MD [address] [facility] [place] [address] PCP - General 09/22/08 Dental Mechanic Relationship Specialty Start Date End Date Mathew Cobian MD [address] [place] [address] PCP - General 09/22/08 Dental Mechanic Relationship Specialty Start Date End Date Mathew Cobian MD [address] [place] [address] PCP - General 09/22/08 Dental Mechanic Relationship Specialty Start Date End Date Mathew Cobian MD [address] [place] [address] PCP - General 09/22/08 Dental Mechanic Relationship Specialty Start Date End Date Mathew Cobian MD [address] [place] [address] PCP - General 09/22/08 Dental Mechanic Relationship Specialty Start Date End Date Mathew Cobian MD [address] [place] [address] PCP - General 09/22/08 Dental Mechanic Relationship Specialty Start Date End Date Mathew Cobian MD [address] [place] [address] PCP - General 09/22/08 Dental Mechanic Relationship Specialty Start Date End Date Mathew Cobian MD [address] [place] [address] PCP - General 09/22/08 Dental Mechanic Relationship Specialty Start Date End Date Mathew Cobian MD [address] [place] [address] PCP - General Family Medicine 09/26/23 Dental Mechanic Relationship Specialty Start Date End Date Mathew Cobian MD [address] [place] [address] PCP - General 09/22/08 Dental Mechanic Relationship Specialty Start Date End Date Mathew Cobian MD [address] [facility] [address] PCP - General 09/22/08 Dental Mechanic Relationship Specialty Start Date End Date Mathew Cobian MD [address] [place] [address] PCP - General 09/22/08 Dental Mechanic Relationship Specialty Start Date End Date Mathew Cobian MD [address] [place] [address] PCP - General 09/22/08 Dental Mechanic Relationship Specialty Start Date End Date Mathew Cobian MD [address] [place] [address] PCP - General 09/22/08 Dental Mechanic Relationship Specialty Start Date End Date Mathew Cobian MD [address] [place] [address] PCP - General 09/22/08 Dental Mechanic Relationship Specialty Start Date End Date Mathew Cobian MD [address] [place] [address] PCP - General 09/22/08 Dental Mechanic Relationship Specialty Start Date End Date Mathew Cobian MD [address] [place] [address] PCP - General 09/22/08 Dental Mechanic Relationship Specialty Start Date End Date Mathew Cobian MD [address] [place] [address] PCP - General 09/22/08 Dental Mechanic Relationship Specialty Start Date End Date Mathew Cobian MD [address] [place] [address] PCP - General 09/22/08 Dental Mechanic Relationship Specialty Start Date End Date Mathew Cobian MD [address] [place] [address] PCP - General 09/22/08 Dental Mechanic Relationship Specialty Start Date End Date Mathew Cobian MD [address] [place] [address] PCP - General 09/22/08 Dental Mechanic Relationship Specialty Start Date End Date Mathew Cobian MD [address] [place] [address] PCP - General 09/22/08 Dental Mechanic Relationship Specialty Start Date End Date Mathew Cobian MD [address] [place] [address] PCP - General 09/22/08 Dental Mechanic Relationship Specialty Start Date End Date Mathew Cobian MD [address] [place] [address] PCP - General 09/22/08 Dental Mechanic Relationship Specialty Start Date End Date Mathew Cobian MD [address] [place] [address] PCP - General 09/22/08 Sp San RN [address] [place] [id number] Primary Care Production Estimator 05/14/24 05/14/24 Dental Mechanic Relationship Specialty Start Date End Date Mathew Cobian MD [address] [place] [address] PCP - General 09/22/08 Dental Mechanic Relationship Specialty Start Date End Date aMthew Cobian MD [address] [place] [address] PCP - General 09/22/08 Gypsy Syed APRN.REBRANDER [address] [place] [address] Code Machine Operator Family Medicine 06/30/24 Brian Ahmadi APRN.REBRANDER [address] [place] [address] Code Machine Operator Family Medicine 07/09/24 Dental Mechanic Relationship Specialty Start Date End Date Mathew Cobian MD [address] [place] [address] PCP - General 09/22/08 Gypsy Syed APRN.REBRANDER [address] [place] [address] Code Machine Operator Family Medicine 06/30/24 Brian Ahmadi APRN.REBRANDER [address] [place] [address] Code Machine Operator Family Medicine 07/09/24 Dental Mechanic Relationship Specialty Start Date End Date Mathew Cobian MD [address] [place] [address] PCP - General 09/22/08 Gypsy Syed APRN.REBRANDER [address] [place] [address] [facility]/24 Brian Ahmadi APRN.REBRANDER [address] [place] [address] [facility] 07/09/24 Dental Mechanic Relationship Specialty Start Date End Date Mathew Cobian MD [address] [place] [address] PCP - General 09/22/08 Gypsy Syed APRN.REBRANDER [address] [place] [address] [facility] 06/30/24 Brian Ahmadi PHYSICIAN UNDERWRITER.REBRANDER [address] [place] [address] [facility] 07/09/24 Dental Mechanic Relationship Specialty Start Date End Date Mathew Cobian MD [address] [place] [address] PCP - General 09/22/08 Gypsy Syed APRN.REBRANDER [address] [place] [address] [facility] Medicine 06/30/24 Brian Ahmadi APRN.REBRANDER [address] [place] [address] [facility] 07/09/24 Dental Mechanic Relationship Specialty Start Date End Date Mathew Cobian MD [address] [facility] [place] [address] PCP - General 09/22/08 Gypsy Syed APRN.REBRANDER [address] [facility] [place] [address] Code Machine Operator Family Medicine 06/30/24 Brian Ahmadi APRN.REBRANDER [address] [place] [address] Code Machine Operator [facility] 07/09/24 Dental Mechanic Relationship Specialty Start Date End Date Mathew Cobian MD [address] [place] [address] PCP - General 09/22/08 Gypsy Syed APRN.REBRANDER [address] [place] [address] Code Machine Operator Family Medicine 06/30/24 Brian Ahmadi APRN.REBRANDER [address] [facility] [place] [address] Code Machine Operator [facility] 07/09/24 Dental Mechanic Relationship Specialty Start Date End Date Mathew Cobian MD [address] [place] [address] PCP - General 09/22/08 Gypsy Syed APRN.REBRANDER [address] [place] [address] Code Machine Operator Family Medicine 06/30/24 Brian Ahmadi APRN.REBRANDER [address] [place] [address] Code Machine Operator [facility] 07/09/24 Dental Mechanic Relationship Specialty Start Date End Date Mathew Cobian MD [address] [place] [address] PCP - General 09/22/08 Gypsy Syed APRN.REBRANDER [address] [place] [address] Code Machine Operator Family Medicine 06/30/24 Brian Ahmadi APRN.REBRANDER [address] [place] [address] [facility] 07/09/24 Dental Mechanic Relationship Specialty Start Date End Date Mathew Cobian MD [address] [place] [address] PCP - General 09/22/08 Gypsy Syed APRN.REBRANDER [address] [place] [address] [facility] 06/30/24 Brian Ahmadi APRN.REBRANDER [address] [place] [address] [facility] 07/09/24 Dental Mechanic Relationship Specialty Start Date End Date Mathew Cobian MD [address] [place] [address] PCP - General 09/22/08 Gypsy Syed APRN.REBRANDER [address] [place] [address] [facility] 06/30/24 Brian Ahmadi APRN.REBRANDER [address] [place], [place] [address] [facility] 07/09/24 Dental Mechanic Relationship Specialty Start Date End Date Mathew Cobian MD [address] [place], [place] [address] PCP - General 09/22/08 Gypsy Syed APRN.REBRANDER [address] [place] [address] [facility] 06/30/24 Brian Ahmadi APRN.REBRANDER [address] [place] [address] [facility] 07/09/24 Team Status: Active Member Role Status Dates Dr. Mathew Cobian MD Primary Care Provider Active Team Status: Inactive Member Role Status Dates Dr. Mathew Cobian MD Primary Care Provider Active Start: July 22, 2024 End: July 22, 2024 Dr. Franklyn Donaldson DO Attending Provider Active Start: July 22, 2024 End: July 22, 2024 Dr. Franklyn Donaldson DO Emergency Provider Active Start: July 22, 2024 End: July 22, 2024 Team Status: Inactive Member Role Status Dates Dr. Mathew Cobian MD Primary Care Provider Active Start: November 05, 2024 End: November 05, 2024 Salvatore Watkins MD Emergency Provider Active Star t: November 05, 2024 End: November 05, 2024 Dental Mechanic Relationship Specialty Start Date End Date Mathew Cobian MD [address] [place] [address] PCP - General 09/22/08 Brian Ahmadi APRN.REBRANDER [address] [place] [address] [facility] 07/09/24 Dental Mechanic Relationship Specialty Start Date End Date Mathew Cobian MD [address] [place] [address] PCP - General 09/22/08 Brian Ahmadi APRN.REBRANDER [address] [facility] [place] [address] Code [facility] 07/09/24 Dental Mechanic Relationship Specialty Start Date End Date Mathew Cobian MD [address] [place] [address] PCP - General 09/22/08 Brian Ahmadi PHYSICIAN UNDERWRITER.REBRANDER [address] [place] [address] [facility] 07/09/24 Dental Mechanic Relationship Specialty Start Date End Date Mathew Cobian MD [address] [place] [address] PCP - General 09/22/08 Brian Ahmadi APRN.REBRANDER [address] [facility] [place] [address] [facility] 07/09/24 Dental Mechanic Relationship Specialty Start Date End Date Mathew Cobian MD [address] [facility] [place] [address] PCP - General 09/22/08 Brian Ahmadi PHYSICIAN UNDERWRITER.REBRANDER [address] [place], [place] [address] [facility] 07/09/24 Dental Mechanic Relationship Specialty Start Date End Date Mathew Cobian MD [address] [place], [place] [address] PCP - General 09/22/08 Brian Ahmadi APRN.REBRANDER [address] [place], [place] [address] [facility] 07/09/24 Dental Mechanic Relationship Specialty Start Date End Date Mathew Cobian MD [address] [place], [place] [address] PCP - General 09/22/08 Brian Ahmadi APRN.REBRANDER [address] [place], [place] [address] [facility] 07/09/24 Goals (unrecognized section and content) Goals may be documented in a n alternate sectionGoals may be documented in an alternate section No data available for this sectionGoals may be documented in an alternate section Scheduled Active and Recently Administ ered Medications (unrecognized section and content) Medication Order 09/27/2023 09/28/2023 09/29/2023 B Complex capsule 1 capsule 1 capsule, Oral, DAILY, First dose on Mon09/27/23 at 0900, Until Discontinued 0823 (Given - Provider: Ashlyn Romero RN) 0831 (Given - Provider: Ashlyn Romero RN) 0839 (Given - Provider: Giselle Adame RN) cephALEXin (KEFLEX) capsule 500 mg (CANCELED) 500 mg, Oral, EVERY 12 HOURS, 14 doses, First dose on Mon09/27/23 at 1000, Last dose on Mon10/03/23 at 2100 1059 (Given - Provider: Ashlyn Romero RN)2025 (Given - Provider: Khadijah Rahman RN) 08 (Given - Provider: Ashlyn Romero RN) Citalopram (CELEXA) tablet 40 mg 40 mg, Oral, DAILY, First dose on Mon09/27/23 at 0900, Until Discontinued 08 (Given - Provider: Ashlyn Romero RN) 0828 (Given - Provider: Ashlyn Romero RN) 0838 (Given - Provider: Giselle Adame RN) Enoxaparin Sodium (LOVENOX) injection 40 mg (CANCELED) 40 mg, Subcutaneous, DAILY, First dose on Mon09/27/23 at 1100, Until Discontinued, Indications: DVT/PE prophylaxis 1059 (Given - Provider: Ashlyn Romero RN) 0830 (Given - Provider: Ashlyn Romero RN) Enoxaparin Sodium (LOVENOX) injection 40 mg(Linked Group 1) 40 mg, Subcutaneous, DAILY, First dose (after last modification) on Mon09/29/23 at 0900, Until Discontinued, Indications: DVT/PE prophylaxis 0839 (Given - Provider: Giselle Adame RN) Gadopiclenol SOLN 1-25 mL (COMPLETED) 1-25 mL, Intravenous, ONCE, 1 dose, On Mon09/27/23 at 0145 0139 (Given - Provider: Afshan Esquivel) Levothyroxine (SYNTHROID) tablet 175 mcg (CANCELED) 175 mcg, Oral, DAILY, First dose on Mon09/27/23 at 0900, Until Discontinued 08 (Given - Provider: Ashlyn Romero RN) 08 (Given - Provider: Ashlyn Romero RN) Levothyroxine (SYNTHROID) tablet 175 mcg 175 mcg, Oral, DAILY BEFORE BREAKFAST, First dose (after last modification) on Mon09/29/23 at 0600, Until Discontinued 05 (Given - Provider: Khadijah Rahman RN) lidocaine 4 % patch 1 patch 1 patch, Transdermal, Administer over 12 Hours, EVERY 24 HOURS, First dose on Mon09/26/23 at 2245, Until Discontinued, Apply to back . 2247 (Not Given - Provider: Khadijah Rahman RN - Reason: Patient/family refused) 2126 (Not Given - Provider: Khadijah Rahman RN - Reason: Patient/family refused) LORazepam (ATIVAN) tablet 2 mg (COMPLETED) 2 mg, Oral, ONCE, 1 dose, On Mon09/27/23 at 0030 0102 (Given - Provider: Nela Best, RN - Comment: pt requests only 1mg) Pantoprazole (PROTONIX) tablet DR 40 mg 40 mg, Oral, DAILY, First dose on Mon09/27/23 at 0900, Until Discontinued, Swallow whole; do not crush or chew., Indications: Continuation of Home Therapy, GERD 0823 (Given - Provider: Ashlyn Romero RN) 0829 (Given - Provider: Ashlyn Romero RN) 0838 (Given - Provider: Giselle Adame RN) Senna (SENOKOT) tablet 8.6 mg(Linked Group 2) 8.6 mg, Oral, DAILY, First dose on Mon09/27/23 at 0900, Until Discontinued 0820 (Given - Provider: Ashlyn Romero RN) 0829 (Given - Provider: Ashlyn Romero RN) 0840 (Not Given - Provider: Giselle Adame RN - Reason: Patient/family refused) Senna (SENOKOT) tablet 8.6 mg(Linked Group 2) 8.6 mg, Per NG tube, DAILY, First dose on Mon09/27/23 at 0900, Until Discontinued 0820 (See Alternative - Provider: Ashlyn Romero RN) 0829 (See Alternative - Provider: Ashlyn Romero RN) 0840 (See Alternative - Provider: Giselle Adame RN) PRN Medication Order 09/27/2023 09/28/2023 09/29/2023 Acetaminophen (TYLENOL) tablet 325 mg(Linked Group 3) 325 mg, Oral, EVERY 4 HOURS NEEDED, Starting on Mon09/27/23 at 0000, Until Mon09/29/23 at 1617, Mild Pain, Moderate Pain, Maximum dose of acetaminophen is 4000 mg from all sources in 24 hours. 1135 (See Alternative - Provider: Ashlyn Romero RN)1713 (See Alternative - Provider: Ashlyn Romero RN) 0522 (See Alternative - Provider: Khadijah Rahman RN)0937 (See Alternative - Provider: Giselle Adame RN) Acetaminophen (TYLENOL) tablet 325 mg(Linked Group 3) 325 mg, Per NG tube, EVERY 4 HOURS NEEDED, Starting on Mon09/27/23 at 0000, Until Mon09/29/23 at 1617, Mild Pain, Moderate Pain, Maximum dose of acetaminophen is 4000 mg from all sources in 24 hours. 1135 (See Alternative - Provider: Ashlyn Romero RN)1713 (See Alternative - Provider: Ashlyn Romero RN) 0522 (See Alternative - Provider: Khadijah Rahman RN)0937 (See Alternative - Provider: Giselle Adame, RN) Acetaminophen (TYLENOL) tablet 650 mg(Linked Group 3) 650 mg, Oral, EVERY 4 HOURS NEEDED, Starting on Mon09/27/23 at 0000, Until Mon09/29/23 at 1617, Severe Pain, Oral temp > 99.5, Maximum dose of acetaminophen is 4000 mg from all sources in 24 hours. 1135 (Given - Provider: Ashlyn Romero RN)1713 (Given - Provider: Ashlyn Romero RN) 0522 (Given - Provider: Khadijah Rahman RN)0937 (Given - Provider: Giselle Adame, RN) Acetaminophen (TYLENOL) tablet 650 mg(Linked Group 3) 650 mg, Per NG tube, EVERY 4 HOURS NEEDED, Starting on Mon09/27/23 at 0000, Until Mon09/29/23 at 1617, Severe Pain, Oral temp > 99.5, Maximum dose of acetaminophen is 4000 mg from all sources in 24 hours. 1135 (See Alternative - Provider: Ashlyn Romero RN)1713 (See Alternative - Provider: Ashlyn Romero RN) 0522 (See Alternative - Provider: Khadijah Rahman RN)0937 (See Alternative - Provider: Giselle Adame RN) hydrALAZINE (APRESOLINE) injection 10 mg(Linked Group 4) 10 mg, Intravenous, EVERY 1 HOUR NEEDED, Starting on Mon09/27/23 at 0632, Until Mon09/29/23 at 1617, Other, SBP > 140 with HR < 60, Use as initial dose for Systolic Blood Pressure GREATER than 140 mmHg and Heart rate LESS than 60 beats per minute. Higher dose may be administered if lower dose was previously documented as ineffective 10 minutes after administration and did not result in adverse effects (HR>90) hydrALAZINE (APRESOLINE) injection 10 mg(Linked Group 5) 10 mg, Intravenous, EVERY 1 HOUR NEEDED, Starting on Mon09/27/23 at 0000, Until Mon09/29/23 at 1617, Other, SBP > 140 mmHg with HR < 60 bpm, Use as initial dose. Use if Heart Rate LESS THAN 60 beats per minute. Higher dose may be administered if lower dose was previously documented as ineffective 10 minutes after administration and did not result in adverse effects (HR>90). hydrALAZINE (APRESOLINE) injection 20 mg(Linked Group 4) 20 mg, Intravenous, EVERY 1 HOUR NEEDED, Starting on Mon09/27/23 at 0632, Until Mon09/29/23 at 1617, Other, SBP > 140 with HR < 60, Higher dose may be administered for Systolic Blood Pressure GREATER than 140 mmHg and Heart rate LESS than 60 beats per minute if lower dose was previously documented as ineffective 10 minutes after administration and did not result in adverse effects (HR>90). Decrease back to lower dose if patient has adverse effects, or no PRN used in previous 3 hours hydrALAZINE (APRESOLINE) injection 20 mg(Linked Group 5) 20 mg, Intravenous, EVERY 1 HOUR NEEDED, Starting on Mon09/27/23 at 0000, Until Mon09/29/23 at 1617, Other, SBP > 140 mmHg with HR < 60 bpm, Use if Heart Rate LESS THAN 60 beats per minute. Higher dose may be administered if lower dose was previously documented as ineffective 10 minutes after administration and did not result in adverse effects (HR>90). Decrease back to lower dose if patient has adverse effects, or no PRN used in previous 3 hours. Labetalol (NORMODYNE) injection 10 mg(Linked Group 6) 10 mg, Intravenous, EVERY 1 HOUR NEEDED, Starting on Mon09/27/23 at 0000, Until Mon09/29/23 at 1617, SBP > 140 mmHg with HR >60 bpm, Use as initial dose. Use if Heart Rate GREATER THAN 60 beats per minute. Higher dose may be administered if lower dose was previously documented as ineffective 10 minutes after administration and did not result in adverse effects (HR<60). For vials: labetalol should be treated as a SINGLE USE VIAL. Discard remaining contents after one use. Labetalol (NORMODYNE) injection 20 mg(Linked Group 6) 20 mg, Intravenous, EVERY 1 HOUR NEEDED, Starting on Mon09/27/23 at 0000, Until Mon09/29/23 at 1617, SBP > 140 mmHg with HR >60 bpm, Use if Heart Rate GREATER THAN 60 beats per minute. Higher dose may be administered if lower dose was previously documented as ineffective 10 minutes after administration and did not result in adverse effects (HR<60). Decrease back to lower dose if patient has adverse effects, or no PRN used in previous 3 hours. For vials: labetalol should be treated as a SINGLE USE VIAL. Discard remaining contents after one use. Ondansetron (ZOFRAN) tablet 4 mg(Linked Group 7) 4 mg, Oral, EVERY 6 HOURS NEEDED, Starting on Mon09/27/23 at 0000, Until Mon09/29/23 at 1617, Nausea / Vomiting Ondansetron 4mg/2ml (ZOFRAN) injection 4 mg(Linked Group 7) 4 mg, Intravenous, EVERY 6 HOURS NEEDED, Starting on Mon09/27/23 at 0000, Until Mon09/29/23 at 1617, Nausea / Vomiting Polyethylene glycol (MIRALAX) packet 17 g(Linked Group 8) 17 g, Oral, DAILY NEEDED, Starting on Mon09/27/23 at 0000, Until Mon09/29/23 at 161, Constipation If No Bowel Movement in 48 Hours 2037 (Given - Provider: Khadijah Rahman RN) 08 (Given - Provider: Ashlyn Romero RN)2153 (Given - Provider: Khadijah Rahman RN) Polyethylene glycol (MIRALAX) packet 17 g(Linked Group 8) 17 g, Per NG tube, DAILY NEEDED, Starting on Mon09/27/23 at 0000, Until Mon09/29/23 at 1617, Constipation If No Bowel Movement in 48 Hours 2037 (See Alternative - Provider: Khadijah Rahman RN) 08 (See Alternative - Provider: Ashlyn Romero RN)2153 (See Alternative - Provider: Khadijah Rahman RN) Sodium chloride (PF) 0.9 % injection 1-100 mL (COMPLETED) 1-100 mL, Intravenous, ONCE NEEDED, 1 dose, Starting on Mon09/27/23 at 0139, Until Mon09/27/23 at 0140, Flush, MR Procedure 0140 (Given - Provider: Afshan Esquivel) Linked Groups Order Group 1: Enoxaparin Sodium (LOVENOX) injection 40 mgJump to med 40 mg, Subcutaneous, DAILY, First dose (after last modification) on Mon09/29/23 at 0900, Until Discontinued, Indications: DVT/PE prophylaxis And PLATELET COUNT (CANCELED) Routine, EVERY 3 DAYS AM LAB, First occurrence on Mon10/01/23 at 0500, Until Specified, New collection Group 2: Senna (SENOKOT) tablet 8.6 mgJump to med 8.6 mg, Oral, DAILY, First dose on Mon09/27/23 at 0900, Until Discontinued Or Senna (SENOKOT) tablet 8.6 mgJump to med 8.6 mg, Per NG tube, DAILY, First dose on Mon09/27/23 at 0900, Until Discontinued Group 3: Acetaminophen (TYLENOL) tablet 325 mgJump to med 325 mg, Oral, EVERY 4 HOURS NEEDED, Starting on Mon09/27/23 at 0000, Until Mon09/29/23 at 1617, Mild Pain, Moderate Pain, Maximum dose of acetaminophen is 4000 mg from all sources in 24 hours. Or Acetaminophen (TYLENOL) tablet 325 mgJump to med 325 mg, Per NG tube, EVERY 4 HOURS NEEDED, Starting on Mon09/27/23 at 0000, Until Mon09/29/23 at 1617, Mild Pain, Moderate Pain, Maximum dose of acetaminophen is 4000 mg from all sources in 24 hours. Or Acetaminophen (TYLENOL) tablet 650 mgJump to med 650 mg, Oral, EVERY 4 HOURS NEEDED, Starting on Mon09/27/23 at 0000, Until Mon09/29/23 at 1617, Severe Pain, Oral temp > 99.5, Maximum dose of acetaminophen is 4000 mg from all sources in 24 hours. Or Acetaminophen (TYLENOL) tablet 650 mgJump to med 650 mg, Per NG tube, EVERY 4 HOURS NEEDED, Starting on Mon09/27/23 at 0000, Until Mon09/29/23 at 1617, Severe Pain, Oral temp > 99.5, Maximum dose of acetaminophen is 4000 mg from all sources in 24 hours. Group 4: hydrALAZINE (APRESOLINE) injection 10 mgJump to med 10 mg, Intravenous, EVERY 1 HOUR NEEDED, Starting on Mon09/27/23 at 0632, Until Mon09/29/23 at 1617, Other, SBP > 140 with HR < 60, Use as initial dose for Systolic Blood Pressure GREATER than 140 mmHg and Heart rate LESS than 60 beats per minute. Higher dose may be administered if lower dose was previously documented as ineffective 10 minutes after administration and did not result in adverse effects (HR>90) Or hydrALAZINE (APRESOLINE) injection 20 mgJump to med 20 mg, Intravenous, EVERY 1 HOUR NEEDED, Starting on Mon09/27/23 at 0632, Until Mon09/29/23 at 1617, Other, SBP > 140 with HR < 60, Higher dose may be administered for Systolic Blood Pressure GREATER than 140 mmHg and Heart rate LESS than 60 beats per minute if lower dose was previously documented as ineffective 10 minutes after administration and did not result in adverse effects (HR>90). Decrease back to lower dose if patient has adverse effects, or no PRN used in previous 3 hours Group 5: hydrALAZINE (APRESOLINE) injection 10 mgJump to med 10 mg, Intravenous, EVERY 1 HOUR NEEDED, Starting on Mon09/27/23 at 0000, Until Mon09/29/23 at 1617, Other, SBP > 140 mmHg with HR < 60 bpm, Use as initial dose. Use if Heart Rate LESS THAN 60 beats per minute. Higher dose may be administered if lower dose was previously documented as ineffective 10 minutes after administration and did not result in adverse effects (HR>90). Or hydrALAZINE (APRESOLINE) injection 20 mgJump to med 20 mg, Intravenous, EVERY 1 HOUR NEEDED, Starting on Mon09/27/23 at 0000, Until Mon09/29/23 at 1617, Other, SBP > 140 mmHg with HR < 60 bpm, Use if Heart Rate LESS THAN 60 beats per minute. Higher dose may be administered if lower dose was previously documented as ineffective 10 minutes after administration and did not result in adverse effects (HR>90). Decrease back to lower dose if patient has adverse effects, or no PRN used in previous 3 hours. Group 6: Labetalol (NORMODYNE) injection 10 mgJump to med 10 mg, Intravenous, EVERY 1 HOUR NEEDED, Starting on Mon09/27/23 at 0000, Until Mon09/29/23 at 1617, SBP > 140 mmHg with HR >60 bpm, Use as initial dose. Use if Heart Rate GREATER THAN 60 beats per minute. Higher dose may be administered if lower dose was previously documented as ineffective 10 minutes after administration and did not result in adverse effects (HR<60). For vials: labetalol should be treated as a SINGLE USE VIAL. Discard remaining contents after one use. Or Labetalol (NORMODYNE) injection 20 mgJump to med 20 mg, Intravenous, EVERY 1 HOUR NEEDED, Starting on Mon09/27/23 at 0000, Until Mon09/29/23 at 1617, SBP > 140 mmHg with HR >60 bpm, Use if Heart Rate GREATER THAN 60 beats per minute. Higher dose may be administered if lower dose was previously documented as ineffective 10 minutes after administration and did not result in adverse effects (HR<60). Decrease back to lower dose if patient has adverse effects, or no PRN used in previous 3 hours. For vials: labetalol should be treated as a SINGLE USE VIAL. Discard remaining contents after one use. Group 7: Ondansetron 4mg/2ml (ZOFRAN) injection 4 mgJump to med 4 mg, Intravenous, EVERY 6 HOURS NEEDED, Starting on Mon09/27/23 at 0000, Until Mon09/29/23 at 1617, Nausea / Vomiting Or Ondansetron (ZOFRAN) tablet 4 mgJump to med 4 mg, Oral, EVERY 6 HOURS NEEDED, Starting on Mon09/27/23 at 0000, Until Mon09/29/23 at 1617, Nausea / Vomiting Group 8: Polyethylene glycol (MIRALAX) packet 17 gJump to med 17 g, Oral, DAILY NEEDED, Starting on Mon09/27/23 at 0000, Until Mon09/29/23 at 1617, Constipation If No Bowel Movement in 48 Hours Or Polyethylene glycol (MIRALAX) packet 17 gJump to med 17 g, Per NG tube, DAILY NEEDED, Starting on Mon09/27/23 at 0000, Until Mon09/29/23 at 1617, Constipation If No Bowel Movement in 48 Hours Inactive Administered Medications - up to 3 most recent administrations Administered Medications (un recognized section and content) Medication Order MAR Action Action Date Dose Rate Site keTORolac 60 mg injection (Toradol) 60 mg, INTRAMUSCULAR, ONCE, 1 dose, On Mon11/01/23 at 1500, Ketorolac (Toradol) is indicated for the short-term (up to 5 days) management of moderately severe acute pain. Continuation of ketorolac (Toradol) beyond 5 days increases the risk of developing serious adverse events. Please verify the duration of therapy for ketorolac (Toradol)., If ordered PRN for pain, patient/guardian may elect to receive this medication for higher pain levels INSTEAD of the opioid, if preferred: Yes Given 11/01/2023 3:29 PM EDT 60 mg Buttocks, Left FOR RECORDS PERTAINING TO PATIENTS WHO ARE OR HAVE BEEN ENROLLED IN A CHEMICAL DEPENDENCY/SUBSTANCEABUSE PROGRAM, SOME INFORMATION MAY BE OMITTED. This clinical summary was aggregated from multiple sources. Caution should be exercised in using it in the provision of clinical care. This summary normalizes information from multiple sources, and as a consequence, information in this document may materially change the coding, format and clinical context of patient data. In addition, data may be omitted in some cases. CLINICAL DECISIONS SHOULD BE BASED ON THE PRIMARY CLINICAL RECORDS. [facility]. provides no warranty or guarantee of the accuracy or completeness of information in this document.
--- OUTSIDE RECORDS SUMMARY | 2025-01-21 00:35 | XMS RPT_ITS | CCD ---
Author Organization [facility] Care Team Providers Care Datastage Architect Name Role Phone Mathew Cobian MD Primary [...] Referring Unavailable GILSON BAR Attending Unavailable Yahaira FISHING ROD MARKER.Gypsy BLANKENSHIP Unavailable Daiana FISHING ROD MARKERBrian CORNELIUS Unavailable DR MATHEW COBIAN MD Primary Care Physician DR MATHEW COBIAN MD Primary Care Unavailab KAE Escalera DO Attending Unavailable RAPHAEL CALDERON JR Referring Unavaila MATHEW Barth Primary Care Unavailable Dr. Mathew Cobian MD Primary Care Provider [phone] Dr. Franklyn Donaldson DO Attending Provider Dr. [...] 20, 2017 12:00am November 25, 2017 10:02am [id number] 200 actuat albuterol 0.09 mg/actuat metered dose [...] 12-04-2020 End: 12-04-2020 Fluticasone Propionate 50 mcg/actuation [place],Suspension Discontinued 1 NMA NASAL TWICE A DAY December 04, 2020 12:00am December 04, 2020 7:05pm Start: 12-04-2020 End: 12-04-2020 Fluticasone Propionate Disco ntinued 1 SPRAY NASAL TWICE A DAY December 04, 2020 12:00am December 04, 2020 7:05pm glycerin 2 mg/ml / hypromellose 2 mg/ml / polyethylene glycol 400 10 mg/ml ophthalmic solution (1 source) Non-Standardized Chemical Allergen Start: 12-23-2020 Peg 997-Yembhjjpronb-Zcwduuwq (Artificial Tears(Qr-Taub-Gacf)) 1-0.2-0.2 % Drops Active 1 DRP EACH [...] Comment on above: Take 1 capsule by [facility] once daily. take 1 capsule by [facility] once daily sulfamethoxazole 800 mg / [...] Comment on above: Take 1 tablet by [facility] twice daily for 7 days. triamcinolone acetonide [...] on above: Take 1 capsule by [facility] once daily. Vitamin B Complex Tablet (1 source) Start: 02-27-2022 Vitamin B Complex Tablet Active 1 {tbl} PO DAILY February 27, 2022 12:00am Completed/Discontinued Medications Medication Drug Class(es) Dates Sig (Normalized) Sig (Original) Acetaminophen (14 sources) Start: 09-27-2023 End: 09-29-2023 take 1 tablet by mouth every four hours as needed Acetaminophen (TYLENOL) tablet 325 mg Start: 12-23-2020 take 2 tablets by mo [facility] every six hours as needed for pain [...] Comment on above: Take 1 capsule by [facility] one time a week. cyclobenzaprine hydrochloride [...] Comment on above: Take 1 capsule by [facility] once daily. Enoxaparin Sodium (LOVENOX) injection [...] (MIRALAX) packet 17 g polyethylene glycol 3350 200341 mg / potassium chloride 2970 mg / sodium bicarbonate 6740 mg / sodium chloride 5860 mg / sodium sulfate 98675 mg powder for oral solution (1 source) [...] [Moles/Vol] 15 mmol/L 8 - 15 mmol/L [facility] Calcium [Mass/Vol] 9.8 mg/dL 8.5 - 10. 2 mg/dL [facility] Chloride [Moles/Vol] 100 mmol/L 98 - 107 mmol/L [facility] CO2 [Moles/Vol] 19 mmol/L Low 22 - 30 mmol/L [facility] Creatinine [Mass/Vol] 0.93 mg/dL 0.73 - 1.22 mg/dL [facility] GFR/1.73 sq M.predicted among non-blacks MDRD (S/P/Bld) [Vol rate/Area] 96 mL/min/{1.73_m2} - PINF [facility] Comment on above: Estimated Glomerular Filtration Rate [...] [Mass/Vol] 85 mg/dL 74 - 99 mg/dL [facility] Comment on above: The [place] Diabete s Association (ADA) provides guidance for [...] Standards of Medical Care in Diabetes 2016, [place] Diabetes Association. Diabetes Care. 2016.39(Suppl 1). Interpretation and review of laboratory results Abnormal [facility] Potassium [Moles/Vol] 4 mmol/L 3.7 - 5.1 mmol/L [facility] Sodium [Moles/Vol] 134 mmol/L Low 136 - 144 mmol/L [facility] Urea nitrogen [Mass/Vol] 23 mg/dL 9 - 24 mg/dL [facility] Basic metabolic 2000 panelon 01-17-2025 Anion gap [Moles/Vol] 15 mmol/L Normal 8-15 [facility] Comment on above: Order Comment: Speci men Type: BLOOD SPECIMENOrdering Facility: [facility] Address: [address] [place] [address] Performed By: #### 2 276-4, 03494-1 ####[facility] LABCLIA [id number] [place] [address] [place]#### 57859-8, 89815-7 ####[facility] [place] MILLWNCLIA [id number] [place] [address] [place] Calcium [Mass/Vol] 9.8 mg/dL Normal 8.5-10.2 [facility] Comment on above: Order Comment: Juani magaly Type: BLOOD SPECIMENOrdering Facility: [facility] Address: [address] [place] [address] Performed By: #### 2 276-4, 58510-1 ####[facility] LABCLIA [id number] [place] [address] [place]#### 49670-8, 27636-7 ####[facility] [place] MILLTOWNCLIA [id number] [place] [address] [place] Chloride [Moles/Vol] 100 mmol/L Normal 98-107 [facility] Comment on above: Order Comment: Speci men Type: BLOOD SPECIMENOrdering Facility: [facility] Address: [address] [place] [address] Performed By: #### 2 276-4, 55554-8 ####[facility] LABCLIA [id number] [place] [address] [place]#### 40437-6, ####[facility] [place] MILLTOWNCLIA [id number] [place] [address] [place] CO2 [Moles/Vol] 19 mmol/L Low 22-30 [facility] Comment on above: Order Comment: Speci men Type: BLOOD SPECIMENOrdering Facility: [facility] Address: [address] [place] [address] [place] [address] Performed By: #### 2 276-4, 11509-5 ####[facility] LABCLIA [id number] [place] [address] [place]#### 73424-3, ####[facility] BABIESNCLIA [id number] [place] [address] [place] Creatinine [Mass/Vol] 0.93 mg/dL Normal 0.73-1.22 [facility] Comment on above: Order Comment: Speci men Type: BLOOD SPECIMENOrdering Facility: [facility] Address: [facility] [address] Performed By: #### 2 276-4, 05851-4 ####[facility] LABCLIA [id number] [place] [address] [place]#### 57679-9, ####[facility] [place] MILLWNCLIA [id number] [place] [address] [place] Creatinine and Glomerular filtration rate.predicted panel (S/P/Bld) 96 mL/min/1.73m??? Normal >=60 [facility] Comment on above: Order Comment: Speci men Type: BLOOD SPECIMENOrdering Facility: [facility] Address: [address] [place] [address] Result Comment: Heidi mated Glomerular Filtration Rate [...] actual GFR. Performed By: #### 2 276-4, 83374-5 ####[facility] LABIA [id number] [address] [place]#### 88535-0, 65999-7 ####[facility]ITAL[facility] [id number] [place] [address] [place] Glucose [Mass/Vol] 85 mg/dL Normal 74-99 [facility] Comment on above: Order Comment: Mejia magaly Type: BLOOD SPECIMENOrdering Facility: [facility] Address: [address] [place] [address] Result Comment: The [place] Diabetes Association (ADA) provides guidance for cutoff [...] Standards of Medical Care in Diabetes 2016, [place] Diabetes Association. Diabetes Care. 2016.39(Suppl 1). Performed By: #### 2 276-4, 54426-9 ####[facility] LABIA [id number] [address] [address] [place]#### 17145-4, 59382-3 ####[facility]PITALWNCLIA [id number] [place] [address] [place] Potassium [Moles/Vol] 4.0 mmol/L Normal 3.7-5.1 [facility] Comment on above: Order Comment: Speci men Type: BLOOD SPECIMENOrdering Facility: [facility] Address: [address] [place] [address] Performed By: #### 2 276-4, 85026-5 ####[facility] LABCLIA [id number] [place] [address] [place]#### 89928-3, ####[facility] [place] MILLWNCLIA [id number] [place] [address] [place] Sodium [Moles/Vol] 134 mmol/L Low 136-144 [facility] Comment on above: Order Comment: Speci men Type: BLOOD SPECIMENOrdering Facility: [facility] Address: [address] [place] [address] Performed By: #### 2 276-4, 07106-1 ####[facility] LABCLIA [id number] [place] [address] [place]#### 82519-2, ####[facility] HOSPITALWAZLIA [id number] [place] [address] [place] Urea nitrogen [Mass/Vol] 23 mg/dL Normal 9-24 [facility] Comment on above: Order Comment: Speci men Type: BLOOD SPECIMENOrdering Facility: [facility] Address: [facility] [place] [id number] Performed By: #### 2 276-4, 16842-6 ####[facility] LABCLIA [id number] [place] [id number] [place]#### 69421-6, 73203-9 ####[facility] [id number] [place] [address] [place] CBC W Auto Differential pane l (Bld)on 01-17-2025 Basophils (Bld) [#/Vol] 0.04 10*3/uL [facility] Basophils/100 WBC (Bld) 0.4 % [facility] Differential cell count method Nom (Bld) Auto [facility] Eosinophils (Bld) [#/Vol] 0.11 10*3/uL [facility] Eosinophils/100 WBC (Bld) 1.1 % [facility] Erythrocyte distribution width (RBC) [Ratio] 12.9 % 11.5 - 15.0 % [facility] Hematocrit (Bld) [Volume fraction] 43.9 % 39.0 - 51.0 % [facility] Hemoglobin (Bld) [Mass/Vol] 15.6 g/dL 13.0 - 17.0 g/dL [facility] Immature granulocytes (Bld) [#/Vol] 0.09 10*3/uL [facility] Immature granulocytes/100 WBC (Bld) 0.9 % [facility] Lymphocytes (Bld) [#/Vol] 1.62 10*3/uL [facility] Lymphocytes/100 WBC (Bld) 16.5 % [facility] MCH (RBC) [Entitic mass] 31.4 pg 26.0 - 34.0 pg [facility] MCHC (RBC) [Mass/Vol] 35.5 g/dL 30.5 - 36.0 g/dL [facility] MCV (RBC) [Entitic vol] 88.3 fL 80.0 - 100.0 fL [facility] Monocytes (Bld) [#/Vol] 0.7 10*3/uL [facility] Monocytes/100 WBC (Bld) 7.1 % [facility] Neutrophils (Bld) [#/Vol] 7.25 10*3/uL [facility] Neutrophils/100 WBC (Bld) 74 % [facility] Nucleated RBC (Bld) [#/Vol] [facility] Nucleated RBC/100 WBC (Bld) [Ratio] 0 % /100 WBC [facility] Platelet mean volume (Bld) [Entitic vol] 11.3 fL 9.0 - 12.7 fL [facility] Platelets (Bld) [#/Vol] 251 10*3/uL [facility] RBC (Bld) [#/Vol] 4.97 10*6/uL 4.20 - 6.0 0 m/uL [facility] WBC (Bld) [#/Vol] 9.81 10*3/uL [facility] Basophils (Bld) [#/Vol] 0.04 10*3/uL Normal <0.11 [facility] Comment on above: Order Comment: Speci men Type: BLOOD SPECIMENOrdering Facility: [facility] Address: [address] [place] [address] Performed By: #### 5 7021-8 ####[facility] [place] MILLTOWNCLIA [id number] [place] [address] [place] Basophils/100 WBC (Bld) 0.4 % Normal [facility] Comment on above: Order Comment: Speci men Type: BLOOD SPECIMENOrdering Facility: [facility] Address: [address] [place] [address] Performed By: #### 5 7021-8 ####[facility] BABIESNCLIA [id number] [place] [address] [place] Differential cell count method Nom (Bld) Auto Normal [facility] Comment on above: Order Comment: Speci men Type: BLOOD SPECIMENOrdering Facility: [facility] Address: [address] [place] [address] Performed By: #### 5 7021-8 ####[facility] [place] MILLTOWNCLIA [id number] [place] [address] [place] Eosinophils (Bld) [#/Vol] 0.11 10*3/uL Normal <0.46 [facility] Comment on above: Order Comment: Speci men Type: BLOOD SPECIMENOrdering Facility: [facility] Address: [address] [place] [address] Performed By: #### 5 7021-8 ####[facility] [id number] [place] [address] [place] Eosinophils/100 WBC (Bld) 1.1 % Normal [facility] Comment on above: Order Comment: Speci men Type: BLOOD SPECIMENOrdering Facility: [facility] Address: [address] [place] [address] Performed By: #### 5 7021-8 ####[facility] [id number] [place] [address] [place] Erythrocyte distribution width (RBC) [Ratio] 12.9 % Normal 11.5-15.0 [facility] Comment on above: Order Comment: Speci men Type: BLOOD SPECIMENOrdering Facility: [facility] Address: [address] [place] [address] Performed By: #### 5 7021-8 ####[facility] [id number] [place] [address] [place] Hematocrit (Bld) [Volume fraction] 43.9 % Normal 39.0-51.0 [facility] Comment on above: Order Comment: Speci men Type: BLOOD SPECIMENOrdering Facility: [facility] Address: [address] [place] [address] Performed By: #### 5 7021-8 ####[facility] [id number] [place] [address] [place] Hemoglobin (Bld) [Mass/Vol] 15.6 g/dL Normal 13.0-17.0 [facility] Comment on above: Order Comment: Speci men Type: BLOOD SPECIMENOrdering Facility: [facility] Address: [address] [place] [address] Performed By: #### 5 7021-8 ####[facility] [id number] [place] [address] [place] Immature granulocytes (Bld) [#/Vol] 0.09 10*3/uL Normal <0.10 [facility] Comment on above: Order Comment: Speci men Type: BLOOD SPECIMENOrdering Facility: [facility] Address: [address] [place] [address] Performed By: #### 5 7021-8 ####[facility] BABIESNCFILLMORE [facility] [id number] [place] [address] [place] Immature granulocytes/100 WBC (Bld) 0.9 % Normal [facility] Comment on above: Order Comment: Speci men Type: BLOOD SPECIMENOrdering Facility: [facility] Address: [address] [place] [address] Performed By: #### 5 7021-8 ####[facility]ABIESNCFILLMORE [facility] [id number] [place] [address] [place] Lymphocytes (Bld) [#/Vol] 1.62 10*3/uL Normal 1.00-4.00 [facility] Comment on above: Order Comment: Speci men Type: BLOOD SPECIMENOrdering Facility: [facility] Address: [address] [place] [address] Performed By: #### 5 7021-8 ####[facility] [id number] [address] [place] Lymphocytes/100 WBC (Bld) 16.5 % Normal [facility] Comment on above: Order Comment: Speci men Type: BLOOD SPECIMENOrdering Facility: [facility] Address: [address] [place] [address] Performed By: #### 5 7021-8 ####[facility]ABIESNCFILLMORE [facility] [id number] [place] [address] [place] MCH (RBC) [Entitic mass] 31.4 pg Normal 26.0-34.0 [facility] Comment on above: Order Comment: Speci men Type: BLOOD SPECIMENOrdering Facility: [facility] Address: [address] [place] [address] Performed By: #### 5 7021-8 ####[facility] [place] MECCANCKARENA [id number] [place] [address] [place] MCHC (RBC) [Mass/Vol] 35.5 g/dL Normal 30.5-36.0 [facility] Comment on above: Order Comment: Speci men Type: BLOOD SPECIMENOrdering Facility: [facility] Address: [address] [place] [address] Performed By: #### 5 7021-8 ####[facility]OM[facility] & BABIESNCKARENA [id number] [place] [address] [place] MCV (RBC) [Entitic vol] 88.3 fL Normal 80.0-100.0 [facility] Comment on above: Order Comment: Speci men Type: BLOOD SPECIMENOrdering Facility: [facility] Address: [address] [place] [address] Performed By: #### 5 7021-8 ####[facility] BABIESNCLIA [id number] [place] [address] [place] Monocytes (Bld) [#/Vol] 0.70 10*3/uL Normal <0.87 [facility] Comment on above: Order Comment: Speci men Type: BLOOD SPECIMENOrdering Facility: [facility] Address: [address] [place] [address] Performed By: #### 5 7021-8 ####[facility]ITALWNCLIA [id number] [place] [address] [place] Monocytes/100 WBC (Bld) 7.1 % Normal [facility] Comment on above: Order Comment: Speci men Type: BLOOD SPECIMENOrdering Facility: [facility] Address: [address] [place] [address] Performed By: #### 5 7021-8 ####[facility]IESNCFILLMORE [facility] [id number] [place] [address] [place] Neutrophils (Bld) [#/Vol] 7.25 10*3/uL Normal 1.45-7.50 [facility] Comment on above: Order Comment: Speci men Type: BLOOD SPECIMENOrdering Facility: [facility] Address: [address] [place] [address] Performed By: #### 5 7021-8 ####[facility] [id number] [place] [address] [place] Neutrophils/100 WBC (Bld) 74.0 % Normal [facility] Comment on above: Order Comment: Speci men Type: BLOOD SPECIMENOrdering Facility: [facility] Address: [address] [place] [address] Performed By: #### 5 7021-8 ####[facility] [id number] [place] [address] [place] Nucleated RBC (Bld) [#/Vol] 10*3/uL Normal <0.01 [facility] Comment on above: Order Comment: Speci men Type: BLOOD SPECIMENOrdering Facility: [facility] Address: [address] [place] [address] Performed By: #### 5 7021-8 ####[facility] [id number] [place] [address] [place] Nucleated RBC/100 WBC (Bld) [Ratio] 0.0 /100 WBC Normal [facility] Comment on above: Order Comment: Speci men Type: BLOOD SPECIMENOrdering Facility: [facility] Address: [address] [place] [address] Performed By: #### 5 7021-8 ####[facility] [id number] [place] [address] [place] Platelet mean volume (Bld) [Entitic vol] 11.3 fL Normal 9.0-12.7 [facility] Comment on above: Order Comment: Speci men Type: BLOOD SPECIMENOrdering Facility: [facility] Address: [address] [place] [address] Performed By: #### 5 7021-8 ####[facility] & BABIESNCKARENA [id number] [place] [address] [place] Platelets (Bld) [#/Vol] 251 10*3/uL Normal 150-400 [facility] Comment on above: Order Comment: Speci men Type: BLOOD SPECIMENOrdering Facility: [facility] Address: [address] [place] [address] Performed By: #### 5 7021-8 ####[facility] WOM[facility] & BABIESNCA [id number] [place] [address] [place] RBC (Bld) [#/Vol] 4.97 10*6/uL Normal 4.20-6.00 [facility] Comment on above: Order Comment: Speci men Type: BLOOD SPECIMENOrdering Facility: [facility] Address: [address] [place] [address] Performed By: #### 5 7021-8 ####[facility] WOM[facility] & BABIESNCA [id number] [place] [address] [place] WBC (Bld) [#/Vol] 9.81 10*3/uL Normal 3.70-11.00 [facility] Comment on above: Order Comment: Speci men Type: BLOOD SPECIMENOrdering Facility: [facility] Address: [address] [place] [address] Performed By: #### 5 7021-8 ####[facility] BABIESNCLIA [id number] [place] [address] [place] CNOVon 01-17-2025 CNOV Office Visit (FAMPWS ) [place] ([id number]) 1965 M Date Time Provider Department 01/17/25 10:20 AM INO ESQUEDA During your visit today, we recorded the following information about you: Pulse Blood pressure 69/minute 117/66 Ino Esqueda, FISHING ROD MARKER.WRONG ADDRESS CLERK 01/17/2025 10:41 AM Signed Chief Complaint Patient [...] BASIC METABO (more content not included)... Normal [facility] FERRITINon 01-17-2025 Ferritin [Mass/Vol] 363 ng/mL 30.3 - 5 65.7 ng/mL [facility] Ferritin SerPl-mCncon 2024 Ferritin [Mass/Vol] 363.0 ng/mL Normal 30.3-565.7 [facility] Comment on above: Order Comment: Speci men Type: BLOOD SPECIMENOrdering Facility: [facility] Address: [address] [place] [address] Performed By: #### 2 276-4, 18220-8 ####[facility] LABCLIA [id number] [place] [address] [place]#### 49513-9, 50405-5 ####[facility] [id number] [place] [address] [place] Ferritin [Mass/Vol]on 2024 Interpretation and review of laboratory results Normal [facility] Iron and Iron binding capaci ty panelon 01-17-2025 Interpretation and review of laboratory results Normal [facility] Iron [Mass/Vol] 47 ug/dL 41 - 186 ug/dL [facility] Iron binding capacity [Mass/Vol] 305 ug/dL 232 - 386 ug/dL [facility] Iron/TIBC [Molar ratio] 15.4 % 15.0 - 57.0 % [facility] Iron [Mass/Vol] 47 ug/dL Normal 41-186 [facility] Comment on above: Order Comment: Speci men Type: BLOOD SPECIMENOrdering Facility: [facility] Address: [address] [place] [address] Performed By: #### 2 276-4, 58408-7 ####[facility] LABCLIA [id number] [place] [address] [place]#### 73196-6, 23763-5 ####[facility] TARUN MILLTOWNCLIA [id number] [place] [address] [place] Iron binding capacity [Mass/Vol] 305 ug/dL Normal 232-386 [facility] Comment on above: Order Comment: Speci men Type: BLOOD SPECIMENOrdering Facility: [facility] Address: [address] [place] [address] Performed By: #### 2 276-4, 70260-1 ####[facility] LABCLIA [id number] [place] [address] [place]#### 32527-4, ####[facility] TARUN MILLTOWNCLIA [id number] [address] [place] Iron/TIBC [Molar ratio] 15.4 % Normal 15.0-57.0 [facility] Comment on above: Order Comment: Speci men Type: BLOOD SPECIMENOrdering Facility: [facility] Address: [facility] [place] [id number] Performed By: #### 2 276-4, 31096-7 ####[facility] LABCLIA [id number] [place] [address] [place]#### 68475-1, 06493-9 ####[facility] TARUN MILLTOWNCLIA [id number] [place] [address] [place] MAGNESIUMon 01-17-2025 Magnesium [Mass/Vol] 1.7 mg/dL 1.7 - 2.3 mg/dL [facility] Magnesium SerPl-mCncon 01-17 Magnesium [Mass/Vol] 1.7 mg/dL Normal 1.7-2.3 [facility] Comment on above: Order Comment: Mejia mckenzie Type: BLOOD SPECIMENOrdering Facility: [facility] Address: [address] [place] [address] Performed By: #### 2 276-4, 02367-8 ####[facility] LABCLIA [id number] [place] [address] [place]#### 17662-7, 93693-1 ####[facility] TARUN [facility] [facility] [id number] [address] [place] Magnesium [Mass/Vol]on 01-17 Interpretation and review of laboratory results Normal [facility] Vit B12 [facility] 025 Cobalamin (Vitamin B12) [Mass/Vol] 568 pg/mL Normal 232-1245 [facility] Comment on above: Order Comment: Mejia mckenzie Type: BLOOD SPECIMENOrdering Facility: [facility] Address: [address] [place] [address] Performed By: #### 2 132-9 ####[facility] LABCLIA [id number] [address] [place] CNOVon 01-14-2025 CNOV Office Visit (FAMPWS ) [place] ([id number]) 1965 M Date Time Provider Department 01/14/25 10:20 AM INO ESQUEDA During your visit today, we recorded the following information about you: Pulse Blood pressure Weight 68/minute 123/71 101 kg Ino Esqueda APRN.WRONG ADDRESS CLERK 01/14/2025 10:42 AM Signed Chief Complaint Patient [...] L91.8 - CONSULT TO DERMATOLOGY Ino Esqueda APRN.WRONG ADDRESS CLERK Allergies As of Date: 01/14/2025 (No Known Allergies) Date Reviewed: 01/14/2025 Reviewed by: Patsy Ferrara MA - Fully Assessed Reason for Visit: Derm Problem [33] Cmt: Skin tags Diverticulitis [271] Primary Vi (more content not included)... [facility] [place] ([id number]) 1965 M Date Time Provider Department 01/10/25 [facility] COBIAN [facility] During your visit today, we recorded the following information about you: Aslhyn London, RN 01/10/2025 12:40 PM Signed Pt [...] Encounter Status:Closed by LAURA WHALEY on 01/10/25 [facility] CNOVon 12-25-2024 CNOV Office Visit (UCWSTR ) [place] ([id number]) 1965 M Date Time Provider Department 12/25/24 1:30 PM GREYSON ELLSWORTH [facility] During your visit today, we recorded the following information about you: Temperature Pulse Respiration Blood pressure 98.4 degrees 67/minute 20/minute 128/70 Weight 99.5 kg Greyson Ellsworth APRN.WRONG ADDRESS CLERK 12/25/2024 2:13 PM Signed [facility] [...] Claritin follow up with pcp. Greyson Ellsworth APRN.WRONG ADDRESS CLERK History and Record Review Clinical information obtained from an independent historian. History obtained from or confirmed by: family member. External record(s) reviewed: prior outpatient record. Findings from review of outpatient records: Previous medical history Differential Diagnoses - allergic rhinitis is more likely for the following reason(s): suggested by HANDP - Strep is less likely for the following re (more content not included)... Normal [facility] STREP A MOLECULAR (POC)on Procedural Control Valid [facility] Strep A (POCT) Negative Negative [facility] CNOVon 12-13-2024 CNOV Office Visit (FAMPWS ) [place] ([id number]) 1965 M Date Time Provider Department 12/13/24 [...] Past Histories independently gathered by the clinical operations support professionals and the remaining scribed note accurately describes [...] [B35.1] Order(s):CONSULT TO PODIATRY [9034] Order #: [id number]: 1 FUTURE Prescriptions as of 12/13/2024 - citalopram (CELEXA) 40 mg tablet Take 1 tablet by mouth once daily. - levothyroxine (SYNTHROID) 150 mcg tablet Take 1 tablet by mouth once daily. - omeprazole (PRILO (more content not included)... Normal [facility] 12-10-2024 [facility] [place] ([id number]) 1965 M Date Time Provider Department 12/10/24 [facility] During your visit today, we [...] Fully Assessed Reason for Visit: Patient Question [3517] Prescriptions as of 12/10/2024 - citalopram (CELEXA) [...] Status:Closed by MICK YOUNGBLOOD on 12/10/24 Normal [facility] Emergency Department Summary on 11-05-2024 Emergency Department Summary [facility] Medical Records Department [address] [place] [address] Emergency Department Summary 11/05/24 MR#: [id number] Acct: [id number] Name: [place] Rep #: [id number] : 1965 59 From: Salvatore Watkins MD [...] 6 months ago, and everything appeared normal. [facility] Medical History Alcohol abuse Anxiety History of [...] Mouth pain (more content not included)... Normal [facility] MRI PROSTATE WO/W IVCONon MRI PROSTATE WO/W IVCON * * *Final Report* * * DATE OF EXAM: Oct 28 2024 11:31AM [facility] 0751 - MRI PROSTATE WO/W IVCON / [...] volume were obtained using a semi-automated software (Logicalware). CONTRAST: IV: 9 cc of Elucirem. COMPARISON: [...] of suspicion for clinically significant prostate cancer (Simpson score 3 + 4 or higher). PI-RADS v2.1 Assessment Categories: PI-RADS 1: Clinically significant cancer is highly unlikely PI-RADS 2: Clinically significant cancer is unlikely PI-RADS 3: Clinically significant cancer is equivocal PI-RADS 4: Clinically significant cancer is likely PI-RADS 5: Clinically significant cancer is highly likely (V.05) Operations Inspector: MARTIN Transcribe Date/Time: Oct 31 2024 11:00A Dictated by : THOMAS JAMES MD This examination was interpreted and the report reviewed and electronically signed by: THOMAS JAMES MD on Oct 31 2024 11:25AM EST [id number] Normal [facility]UROLMD[facility] [place] ([id number]) 1965 M Date Time Provider Department 09/10/24 [...] Encounter Status:Closed by BIBI LIU on 09/10/24 [facility] CNOVon 08-26-2024 CNOV Office Visit (ORTHWS ) GOOD ED LUNA ([id number]) 1965 M Date Time Provider Department 08/26/24 [...] PA-C Department of Orthopaedics Orthopaedics [address] [facility] [address] Dept: [phone] Dept August 26, 2024 CHIEF COMPLAINT: Established Patient and Follow Up of the Right Ankle. ASSESSMENT: S82.017L Other closed fracture of proximal end of [...] allergies. This note was partially generated using AxialMED voice recognition system, and there may be some incorrect words, spellings, and punctuation that were not noted in checking the note before saving. Tammie Benitez PA-C Referring Provider: TAMMIE BENITEZ [[id number]] Allergies As of Date: 08/26/2024 (No Known Allergies) Date Reviewed: 08/26/2024 Reviewed by: Keisha Ruggiero MA - Fully Assessed Reason for Visit: Established Patient [175] Follow Up [171] Primary Visit Diagnosis:Other closed fracture of proximal end of right fibula with routine healing, subsequent encounter [W96.088N] Prescriptions as of 08/26/2024 - citalopram (CELEXA) [...] (HCC) [C61] (more content not included)... Normal [facility] XR TIBIA FIBULA 2V AP/LAT RT on [...] are maintained. IMPRESSION: Healing fibular neck fracture Operations Inspector: [facility] Transcribe Date/Time: Aug 28 2024 9:14A Dictated by : WENDI MIRANDA MD This examination was interpreted and the report reviewed and electronically signed by: WENDI MIRANDA MD on Aug 28 2024 9:15AM EST [id number] Normal [facility] XR Tibia and Fibula - right AP and Lateralon 08-01-2024 IMPRESSION: Nondisplaced fracture of the neck of the right fibula Operations Inspector: [facility] Transcribe Date/Time: Aug 01 2024 4:07P Dictated [...] spaces are maintained. DIVISION OF RADIOLOGY Provider, [facility] - 08/01/2024 * * *Final Report* * [...] of the neck of the right fibula Operations Inspector: PSCB Transcribe Date/Time: Aug 01 2024 4:07P Dictated by : SHANELL GORE MD This examination was interpreted and the report reviewed and electronically signed by: SHANELL GORE MD on Aug 01 2024 4:10PM [facility] XR Tibia and Fibula - right AP and LateralOrdered By: Ccabilio Provider on 08-01-2024 [facility] CNOVon 07-29-2024 CNOV Office Visit (ORTHWS ) [place] ([id number]) 1965 M Date Time Provider Department 07/29/24 [...] Tammie Benitez PA-C Department of Orthopaedics Orthopaedics [address] [place] [address] Dept: [phone] Dept July 29, 2024 CHIEF COMPLAINT: New [...] mechanism of injury. He was seen at [facility] a few days after the injury, he [...] of the neck of the right fibula Operations Inspector: PSCB Transcribe Date/Time: Aug 01 2024 4:07P [...] cm o (more content not included)... Normal [facility] XR TIBIA FIBULA 2V AP/LAT RT on [...] of the neck of the right fibula Operations Inspector: PSCB Transcribe Date/Time: Aug 01 2024 4:07P Dictated by : SHANELL GORE MD This examination was interpreted and the report reviewed and electronically signed by: SHANELL GORE MD on Aug 01 2024 4:10PM EST [id number] Normal [facility] XR Tibia and Fibula - right AP and Lateralon 07-29-2024 Radiology Study observation (narrative) [facility] CNCOon 07-25-2024 CNCO Letter Text Normal [facility] CNOVon 07-25-2024 CNOV Office Visit (FAMPWS ) DE LUNAGOOD BATES ([id number]) 1965 M Date Time Provider Department 07/25/24 [...] for ER Follow Up.. Pt was in [facility] ER on 07/22/24 for closed fx [...] fax number to fax letter. Fax number [phone], ATTN: Karie. Case #: [id number]. Notes some sinus drainage and cough, wondering [...] leg. He states that he went to [facility] had an x-ray obtained and was told [...] mg table (more content not included)... Normal [facility] Lizzy 07-23-2024 PATTIEN Telephone (FAMPWS) [place] ([id number]) 1965 Date Time Provider Department 07/23/24 MATHEW COBIAN During your visit today, we recorded the following information about you: Ashlyn London RN 07/23/2024 12:37 PM Signed Pt scheduled [facility] ER f/u. 07-22-24. Reports has closed fx of fibula proximal right, and instructed to f/u with pcp and also ortho by the end of the week. Transferred to Ortho per pt request. Sofia Chung MA 07/23/2024 12:52 PM Signed Patient transferred. Patient states he was told by [facility] ED he has a fracture and needs to be seen by orthopedics by Monday. Patient unable to stay on hold for scheduling. Please advise TAWANNA Del Rio Amy M, MA 07/23/2024 1:35 PM Signed I called and spoke with the patient. Advised no providers in the [facility] office until 07/29/2024. Patient scheduled appointment. Allergies As of Date: 07/23/2024 (No Known Allergies) Date Reviewed: 07/12/2024 Reviewed by: Rola Riojas LPN - Fully Assessed Reason for Visit: [facility] ER f/u [Other] Prescriptions as of [...] Status:Closed by Ashlyn LONDON on 07/23/24 Normal [facility] Emergency Department Summary on 07-22-2024 Emergency Department Summary [facility] Medical Records Department [address] [place] [address] Emergency Department Summary 07/22/24 MR#: [id number] Acct: [id number] Name: [place] Rep #: [id number] : 1965 59 From: Franklyn Donaldson DO [...] leg. He states that he went to [facility] had an x-ray obtained and was told that everything was normal. He states that he is having significant amount of pain still therefore he came here further evaluation management. He states he has been ambulating with a walker at home secondary to the pain. [facility] Medical History Alcohol abuse Anxiety History of [...] following commands knew that he was at [facility] years 2023. Sensation grossly intact Skin: [...] to t (more content not included)... Normal [facility] Extremity Lower without Cont raon 07-22-2024 Extremity Lower without Contra [facility] Imaging Services [address] [place], [place] [address] Extremity Lower without Contra MR#: [id number] Acct: [id number] Name: GOOD [place] Rep #: [id number] : 1965 M 59 From: Ang Triana DO PCP: Dr. Mathew Cobian MD Status: REG ER Study: Extremity Lower without Contra Date of Exam: Exam# [id number] Ordering Dr: Franklyn Donaldson DO [id number] CT RIGHT LOWER EXTREMITY WITH 3-D IMAGING [...] 20:07 EST Reading Location ID and State: [facility] / [place] Tel [phone], Service support , CC: Dr. Mathew Cobian MD; Dr. Franklyn Donaldson DO Operations Inspector: Signed Normal [facility] Tibia Fibula 2 Viewson 07-22 Tibia Fibula 2 Views [facility] Imaging Services [address] [place] [address] Tibia Fibula 2 Views MR#: [id number] Acct: [id number] Name: [place] Rep #: [id number] : 1965 M 59 From: Ang Triana DO PCP: Dr. Mathew Cobian MD Status: PRE ER Study: Tibia Fibula 2 Views Date of Exam: 07/22/24 Exam# [id number] Ordering Dr: Jordan Arndt [id number] INDICATION: PAIN EXAMINATION/TECHNIQUE: X-RAY - RIGHT XR [...] 17:51 EST Reading Location ID and State: [facility] / [place] Tel [phone], Service support , CC: Dr. Mathew Cobian MD; ED PHYSICIAN PROVIDER Operations Inspector: Signed Normal [facility] XR ANKLE AND FOOT 6 VIEWS [facility] 07-20-2024 XR ANKLE AND FOOT 6 [...] Sign Date: 07/20/2024 3:56:28 PM Ordering Provider: [facility] XR TIBIA/FIBULA 2 VIEWS LAUREN Valles [...] Sign Date: 07/20/2024 3:56:28 PM Ordering Provider: [facility] 07-18-2024 MAGGIE Telephone (FAMLaryWS) [place] ([id number]) 1965 M Date Time Provider Department 07/18/24 BRIAN AHMADI [facility] During your visit today, we recorded the following information about you: Brian Ahmadi APRN.[facility] 07/18/2024 9:06 AM Signed Please let [...] [E03.9] Order(s):THYROID STIMULATING HORMONE [TS] Order #: [id number] FUTURE Prescriptions as of 07/23/2024 - LORazepam [...] Status:Closed by Ashlyn LONDON on 07/23/24 Normal [facility] Basic metabolic 2000 panelon 07-12-2024 Anion gap [Moles/Vol] 14 mmol/L Normal 8-15 [facility] Comment on above: Order Comment: Speci men Type: BLOOD SPECIMENOrdering Facility: [facility] Address: [address] [place] [address] Performed By: #### 1 9123-9, 3016-3, 91946-2 ####[facility] LABCLIA [id number] [place] [address] [place] Calcium [Mass/Vol] 9.3 mg/dL Normal 8.5-10.2 [facility] Comment on above: Order Comment: Speci men Type: BLOOD SPECIMENOrdering Facility: [facility] Address: [address] [place], [place] [address] Performed By: #### 1 9123-9, 3016-3, 74142-9 ####[facility] LABCLIA [id number] [place] [address] [place] Chloride [Moles/Vol] 104 mmol/L Normal 98-107 [facility] Comment on above: Order Comment: Speci men Type: BLOOD SPECIMENOrdering Facility: [facility] Address: [address] [place] [address] Performed By: #### 1 9123-9, 3016-3, 68725-9 ####[facility] LABIA [id number] [place] [address] [place] CO2 [Moles/Vol] 21 mmol/L Low 22-30 [facility] Comment on above: Order Comment: Speci men Type: BLOOD SPECIMENOrdering Facility: [facility] Address: [address] [place] [address] Performed By: #### 1 9123-9, 3016-3, 07964-1 ####[facility] LABIA [id number] [place] [address] [place] Creatinine [Mass/Vol] 1.01 mg/dL Normal 0.73-1.22 [facility] Comment on above: Order Comment: Speci men Type: BLOOD SPECIMENOrdering Facility: [facility] Address: [address] [place] [address] Performed By: #### 1 9123-9, 3016-3, 19785-1 ####[facility] LABIA [id number] [place] [address] [place] Creatinine and Glomerular filtration rate.predicted panel (S/P/Bld) 87 mL/min/1.73m??? Normal >=60 [facility] Comment on above: Order Comment: Speci men Type: BLOOD SPECIMENOrdering Facility: [facility] Address: [address] [place] [address] Result Comment: Heidi mated Glomerular Filtration Rate [...] GFR. Performed By: #### 1 9123-9, 3015-3, 28956-8 ####[facility] LABCLIA [id number] [address] [address] [place] Glucose [Mass/Vol] 95 mg/dL Normal 74-99 [facility] Comment on above: Order Comment: Mejia mckenzie Type: BLOOD SPECIMENOrdering Facility: [facility] Address: [address] [place] [address] Result Comment: The [place] Diabetes Association (ADA) provides guidance for cutoff [...] Standards of Medical Care in Diabetes 2016, [place] Diabetes Association. Diabetes Care. 2016.39(Suppl 1). Performed By: #### 1 9123-9, 3015-3, 18453-2 ####[facility] LABCLIA [id number] [address] [address] [place] Potassium [Moles/Vol] 4.6 mmol/L Normal 3.7-5.1 [facility] Comment on above: Order Comment: Mejia mckenzie Type: BLOOD SPECIMENOrdering Facility: [facility] Address: [address] [place] [address] Performed By: #### 1 9123-9, 3015-3, 26519-6 ####[facility] LABCLIA [id number] [address] [address] [place] Sodium [Moles/Vol] 139 mmol/L Normal 136-144 [facility] Comment on above: Order Comment: Speci men Type: BLOOD SPECIMENOrdering Facility: [facility] Address: [address] [place] [address] [place] [id number] Performed By: #### 1 9123-9, 3016-3, 02863-8 ####[facility] LABCLIA [id number] [place] [address] [place] Urea nitrogen [Mass/Vol] 15 mg/dL Normal 9-24 [facility] Comment on above: Order Comment: Speci men Type: BLOOD SPECIMENOrdering Facility: [facility] Address: [address] [place] [address] Performed By: #### 1 9123-9, 3016-3, 95275-1 ####[facility] LABCLIA [id number] [place] [address] [place] CNOVon 07-12-2024 CNOV Office Visit (CHIQUIPWS ) [place] ([id number]) 1965 M Date Time Provider Department 07/12/24 11:00 AM BRIAN AHMADI FAMPWS During your visit today, we recorded the following information about you: Pulse Respiration Blood pressure Weight 67/minute 20/minute 140/88 99.8 kg Brian Ahmadi APRN.CNP 07/12/2024 11:06 AM [facility]um [facility] Get [facility] to assess TSH Complete [...] labs, EEG to finish workup. Brian Ahmadi APRN.WRONG ADDRESS CLERK RTO in 6 months, sooner if needed. This note was partly generated using AxialMED voice recognition dictation and may contain some [...] F17.2 [F17.200] (more content not included)... Normal [facility] Folate SerPl-mCncon 07-12-20 Folate [Mass/Vol] 5.5 ng/mL Normal >4.7 [facility] Comment on above: Order Comment: Speci men Type: BLOOD SPECIMENOrdering Facility: [facility] Address: [address] [place] [address] Performed By: #### 2 284-8, 2132-9 ####[facility] LABIA [id number] [place] [address] [place] Magnesium SerPl-mCncon 07-12 Magnesium [Mass/Vol] 1.9 mg/dL Normal 1.7-2.3 [facility] Comment on above: Order Comment: Mejia mckenzie Type: BLOOD SPECIMENOrdering Facility: [facility] Address: [address] [place] [address] Performed By: #### 1 9123-9, 3016-3, 24783-1 ####[facility]ITAL[facility] [id number] [place] [address] [place] Methylmalonate SerPl-sCncon 07-12-2024 Methylmalonate [Moles/Vol] 0.13 umol/L Normal <=0.40 [facility] Comment on above: Order Comment: Mejia [facility] Type: BLOOD SPECIMENOrdering Facility: [facility] Address: [address] [place] [address] Result Comment: This test was developed, and its performance characteristics determined by the [facility] Department of Pathology and Laboratory Medicine. It has not been cleared or approved by the FDA. The [facility] Department of Pathology and Laboratory Medicine is regulated under CLIA as qualified to perform high-complexity testing. This test is used for clinical purposes. It should not be regarded as investigational or for research. Performed By: #### 1 3964-2 ####[facility] LABCLIA [id number] [place] [address] [place] TSH SerPl-aCncon 07-12-2024 TSH Qn 11.200 m[IU]/L High 0.270-4.200 [facility] Comment on above: Order Comment: Speci men Type: BLOOD SPECIMENOrdering Facility: [facility] Address: [address] [place] [address] Performed By: #### 1 9123-9, 3016-3, 79460-0 ####[facility] LABIA [id number] [place] [address] [place] Vit B12 SerPl-mCncon 024 Cobalamin (Vitamin B12) [Mass/Vol] 409 pg/mL Normal 232-1245 [facility] Comment on above: Order Comment: Speci men Type: BLOOD SPECIMENOrdering Facility: [facility] Address: [address] [place] [address] Performed By: #### 2 284-8, 2132-9 ####[facility] HOSPITALIA [id number] [address] [place] CNPAntonieta 06-12-2024 [facility] [place] ([id number]) 1965 M Date Time Provider Department 06/12/24 [facility] COBIAN [facility] During your visit today, we [...] that he is going to have daughter pickling grader form. Uma Jett RN Allergies As of [...] Encounter Status:Closed by LAURA WHALEY on 06/13/24 [facility] Lizzy 06-10-2024 [facility]AM[facility] [place] ([id number]) 1965 Date Time Provider Department 06/10/24 [facility] CO[facility]AN [facility] During your visit today, we recorded the following information about you: Laura Whaley MA 06/10/2024 10:10 AM Signed Pt dropped off form from [facility] stating that pt is requesting either 1) [...] moving in a week. Patient wants to pickling grader form when completed please. Meena Garcia LPN 06/18/2024 4:22 PM Signed Patient is calling re: status of form. Needing FRANCIA or will have to pay extra $300 that he does not have. Gypsy Meadows LPN, APRN.PATTIE 06/27/2024 8:12 AM Signed Form has been completed and ready for pickling grader. Patient has been notified. Gypsy Syed APRN.WRONG ADDRESS CLERK Allergies As of Date: 06/10/2024 (No Known [...] Encounter Status:Closed by GYPSY SYED on 06/27/24 [facility] 06-07-2024 CNPN Telephone (FAMPWS) [place] ([id number]) 1965 M Date Time Provider Department 06/07/24 [facility] During your visit today, we recorded the [...] Encounter Status:Closed by DEVI CISSE on 06/09/24 [facility] Lizzy 06-03-2024 [facility]PN[facility] [place] ([id number]) 1965 M Date Time Provider Department 06/03/24 [...] Encounter Status:Closed by DEVI CISSE on 06/03/24 [facility] CNOVon 05-22-2024 CNOV Office Visit (GENSWS ) [place] ([id number]) 1965 M Date Time Provider Department 05/22/24 11:15 AM JENNIFER MCGHEE During your visit today, we recorded the following information about you: Pulse Blood pressure 68/minute 111/72 Jennifer Mcghee APRN.WRONG ADDRESS CLERK 05/22/2024 2:48 PM Signed FOLLOW UP VISIT - ENDOSCOPY Good De Luna 1965 [id number] REFERRING PHYSICIAN: No referring provider defined for [...] cold biopsy forceps. Resected and retrieved. Clip sponsorship coordinator: [employer]. Clip (MR safe) was placed. - Eight [...] as needed for worsening/no improvement. Jennifer Mcghee APRN.WRONG ADDRESS CLERK Allergies As of Date: 05/22/2024 (No Known [...] [M54.9] 07/ (more content not included)... Normal [facility] CNOVon 05-17-2024 CNOV Office Visit (UCWSTR ) DE LUNAGOOD BATES ([id number]) 1965 M Date Time Provider Department 05/17/24 1:00 PM [facility] During your visit today, we recorded the following information about you: Temperature Pulse Respiration Blood pressure 97.5 degrees 54/minute 20/minute 110/71 Weight 101.8 kg Prema Turner FISHING ROD MARKER.WRONG ADDRESS CLERK 05/17/2024 1:10 PM Signed This note was created using pickrset. Subjective Good De Luna is a 58 [...] your famil (more content not included)... Normal [facility] LUNAGOOD BATES ([id number]) 1965 M Date Time Provider Department 05/16/24 MATHEW COBINA During your visit today, we recorded the following information about you: Ashlyn London RN 05/16/2024 2:36 PM Signed Patient asking pcp to write an updated letter, stating he needs an emotional support animal. Reports he is moving and the place he's moving to needs an updated letter. Please send to patient, via mobiTerisS. Address verified. Mathew Cobian MD 05/16/2024 4:25 [...] Encounter Status:Closed by LAURA WHALEY on 05/16/24 [facility] ANES POSTPROC EVALon 024 ANES POSTPROC EVAL HNO ID: [id number] Author: SUNDAY HUTTON MD Service: Anesthesiology Author Type: Anesthesiologist Type: Anesthesia Postprocedure Evaluation Filed: 05/13/2024 10:46 Note Text: POST ANESTHESIA EVALUATION NOTE : 1965 Procedure Summary Date: 05/13/24 Room / Location: [facility] Endoscopy Anesthesia Start: 816 Anesthesia Stop: 936 Procedure: COLONOSCOPY DIAGNOSTIC Diagnosis: Diverticulitis Bloody stools (Unexplained GI bleeding Hematochezia) Scheduled Providers: Gilson Bar DO; Yuko Silva APRN.CATERING MANAGER; Sunday Hutton MD Responsible Provider: Sunday Hutton [...] May 13, 2024 TIME: 10:46 AM CSN: [id number] Normal [facility] ANES PRE-OPon 05-13-2024 ANES PRE-OP HNO ID: [id number] Author: SUNDAY HUTTON MD Service: Anesthesiology Author Type: Anesthesiologist Type: Anesthesia Preprocedure Evaluation Filed: 05/13/2024 07:51 Note Text: ANESTHESIOLOGY DAY OF SURGERY NOTE : 1965 Procedure Information Date/Time: 05/13/24 0815 Scheduled providers: Gilson Bar DO; Yuko Silva APRN.CATERING MANAGER; Sunday Hutton MD Procedure: COLONOSCOPY DIAGNOSTIC Location: [facility] Endoscopy Estimated body mass index is 37.28 [...] and consent discussed: yes. Patient / Responsible Republican agrees to proceed: yes Patient / Surrogate [...] May 13, 2024 TIME: 7:50 AM CSN: [id number] [facility] CASE MANAGEMon 05-13-2024 CASE MANAGEM HNO ID: [id number] Author: FRANKLYN BROWN RN Service: ? Author [...] the process utilized to ensure compliance with [facility] policy regarding Inpatient Admission and Observation Services. [...] physician's order as documented evidence of concurrence. [facility] CASE MGT INIT Desean 2023 CASE MGT INIT [facility] HNO ID: [id number] Author: MENDEZ DEVINE RN Service: ? Author [...] Home Advance Directives Current Advance Directive: None Linen Controller Attempted to Assist with AD Completion: Yes [...] stick) Discharge Planning Patient Goal(s): General wellness [place] Explained: [place] Given: No Reason Not Given: No placements necessary Are you interested in bedside delivery of your medications? No, [facility] in [place] Discharge Planning Participant(s): Patient Patient/Family Comments: Caregiver [...] to complete assessment. 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 Daughter to transport. CM assigned will continue to follow for DC planning needs. SIGNATURE: Mendez Devine RN PATIENT NAME: Good De Luna DATE: May 13, 2024 TIME: 11:32 AM CONTACT #: [phone] [facility] CNCOon 05-13-2024 CNCO Letter Text [facility] CNDSon 05-13-2024 CNDS HNO ID: [id number] Author: GILSON BAR DO Service: General Surgery [...] May 13, 2024 TIME: 5:44 PM Normal [facility] Colonoscopyon 05-13-2024 Colonoscopy [facility] Gastrointestinal Endoscopy Patient Name: Good De Luna Procedure Date: 05/13/2024 8:00 AM Date of : 1965 Admit Type: Outpatient Age: 58 Room: [facility] A Gender: Male Note Status: Finalized Attending MD: Gilson Bar , , [id number] Procedure: Colonoscopy Indications: Evaluation of unexplained GI [...] physician, the nurse, the anesthesiologist and the colon and rectal surgeon in the pre-procedure area in the endoscopy [...] clip was successfully placed (MR safe). Clip sponsorship coordinator: [employer]. There was no bleeding at the end of the procedure. Eight sessile polyps were found in the rectum. The polyps were 1 to 4 mm in size. These polyps were removed with a cold biopsy forceps. Resection and retrieval were complete. Many large-mouthed, medium-mouthed and small-mouthed diverticula (more content not included)... Normal [facility] Flexible sigmoidoscopy study on 05-13-2024 [facility] Gastrointestinal Endoscopy Patient Name: Good De Luna Procedure Date: 05/13/2024 8:00 AM Date of : 1965 Admit Type: Outpatient Age: 58 Room: [facility] Gender: Male Note Status: Finalized Attending MD: Gilson Bar , , [id number] Procedure: Colonoscopy Indications: Evaluation of unexplained GI [...] physician, the nurse, the anesthesiologist and the colon and rectal surgeon in the pre-procedure area in the endoscopy [...] a cold (more content not included)... PROVATION [facility] Radiology Study observation (narrative) [facility] NURSING PROGon 05-13-2024 NURSING PROG HNO ID: [id number] Author: PATRICIA BAI, RN Service: Nursing Author Type: Registered Nurse Type: Nursing Progress Note Filed: 05/13/2024 10:53 Note Text: Other: 1020- made aware of Pt's HR. Orders received. 1040- Dr. Hutton iupdated on patient's HR. 1045- Pt c/o chest heaviness. Dr. Hutton at bedside. No new orders. Per Dr. Hutton patient ok to send to the floor. [facility] SURGICAL PATHOLOGYon 024 CASE REPORT [facility] Comment on above: Order Comment: Speci men Type: TISSUE SPECIMEN Ordering Facility: [facility] Address: [address] [place] [address] Result Comment: Surg ical Pathology Report Case: [id number] Authorizing Provider: Gilson Bar DO Collected: 05/13/2024 08:37 AM Ordering Location: [facility] Endoscopy Received: 05/13/2024 10:19 AM Pathologist: Isidro Zarco MD, PhD Specimens: A) - Colon, Ascending Polyp, Ascending Colon Polyps times 2 B) - Colon, Sigmoid, Polyp, Sigmoid Colon Polyp @ 40cm; Spot Ink above/below C) - Colon, Sigmoid, Polyp, Sigmoid Colon Polyps times 2 D) - Rectum, Polyp, Rectal Polyps times 8 Performed By: #### S #### [facility] CLIA [id number] [address] [place], [place] [address] [address] [place] DIAGNOSIS COMMENT Comment A: The histo logic features in these polyps do not reach our threshold for sessile serrated adenoma/polyp. Nonetheless, given the anatomic location, close colonoscopic follow-up is recommended. [facility] Comment on above: Order Comment: Juani men Type: TISSUE SPECIMEN Ordering Facility: [facility] Address: [address] [place] [address] Performed By: #### S #### [facility] CLIA [id number] [address] [place] [address] OF [place] FINAL DIAGNOSIS [facility] Comment on above: Order Comment: Mejia mckenzie Type: TISSUE SPECIMEN Ordering Facility: [facility] Address: [address] [place] [address] Result Comment: A. A scending colon polyps, biopsy: -Tubular adenoma fragments (x4). -Separate fragments of serrated polyp, see comment. B. Sigmoid colon polyp at 40 cm, biopsy: -Hyperplastic polyp. C. Sigmoid colon polyps, biopsy: -Multiple fragments of hyperplastic polyps. D. Rectum polyps, biopsy: -Tubular adenoma fragments (x 2). -Multiple fragments of hyperplastic polyps. Performed By: #### S #### [facility] CLIA [id number] [address] [place] [address] OF [facility] FINAL PERFORMING LAB [facility] Comment on above: Order Comment: Mejia mckenzie Type: TISSUE SPECIMEN Ordering Facility: [facility] Address: [address] [place] [address] Result Comment: Diag nostic interpretation performed at [facility], [address] [place] [address] CLIA# [id number] Private Duty Nurse: Marek Martines M.D. Performed By: #### S #### [facility] CLIA [id number] [address] [place] [address] [place] GROSS DESCRIPTION [facility] Comment on above: Order Comment: Mejia mckenzie Type: TISSUE SPECIMEN Ordering Facility: [facility] Address: [address] [place] [address] Result Comment: A. C olon, Ascending Polyp [...] submitted two cassettes. Gross examination performed at [facility], [address] [place] [address] May 13, 2024 3:41 PM Performed By: #### S #### [facility] CLIA [id number] [address] [place] [address] [place] [address] [place] HISTORY PHYSICALon HISTORY PHYSICAL HNO ID: [id number] Author: GILSON BAR DO Service: General Surgery [...] Date: May 12, 2024 Time: 5:55 PM [facility] 05-08-2024 [facility] Office Visit (GENSWS ) GOOD DE LUNA ([id number]) 1965 M Date Time Provider Department 05/08/24 [...] Resolved Resolved By Diverticulitis 04/30/2024 Brian Ahmadi, FISHING ROD MARKER.WRONG ADDRESS CLERK No Recurrent major depressive disorder, remission status unspecified (HCC) 10/17/2023 Mathew Cobian MD No Prostate cancer ([facility]) 10/17/2023 E (more content not included)... Normal [facility] HISTORY PHYSICALon HISTORY PHYSICAL HNO ID: [id number] Author: GILSON BAR, DO Service: ? Author [...] Resolved Resolved By Diverticulitis 04/30/2024 Brian Ahmadi APRN.WRONG ADDRESS CLERK No Recurrent major depressive disorder, remission status [...] back pain with right-sided sciatica 01/10/2018 Ray Grialdo PA-C No Spinal stenosis of lumbar region 12/12/2017 Brian Ahmadi, KALEB.WRONG ADDRESS CLERK No Overview Signed 12/12/2017 7:47 AM by Brian Ahmadi (Seafood Packer) MRI 11/2017 [facility] Thoracic or lumbosacral neuritis or radiculitis, [...] Anorectal: D (more content not included)... Normal [facility] CNOVon 05-03-2024 CN Office Visit (FAMLaryWS ) GOOD DE LUNA ([id number]) 1965 M Date Time Provider Department 05/03/24 10:40 AM BRIAN AHMADI During your visit today, we recorded the following information about you: Temperature Pulse Respiration Blood pressure 97.7 degrees 79/minute 20/minute 120/80 Weight 100.7 kg Brian Ahmadi APRN.WRONG ADDRESS CLERK 05/03/2024 10:46 AM Signed Chief Complaint Patient [...] Service: OFFICE/OUTPATIENT ESTABLISHED LOW MDM 20 MIN [36524] Additional E/M codes: VISIT CPLX INHERENT EANDM ASSOC WITH MED * Letter Text Encounter Status:Closed by ERIC AHMADI (more content not included)... Normal [facility] PSA SerPl-ncon 05-03-2024 Prostate specific Ag [Mass/Vol] 1.21 ng/mL Normal <2.60 [facility] Comment on above: Order Comment: Speci men Type: BLOOD SPECIMENOrdering Facility: [facility] Address: [address] [place] [address] Result Comment: Tota l PSA test methodology used is the Electrochemiluminescence Immunoassay by [employer]. Total PSA values by differing methodologies cannot be interchanged. Performed By: #### 2 857-1 ####[facility] [id number] [place] [address] [place] CNOVon 04-30-2024 CN Office Visit (FAMPWS ) GOOD DE LUNA ([id number]) 1965 M Date Time Provider Department 04/30/24 1:20 PM BRIAN AHMADI During your visit today, we recorded the following information about you: Temperature Pulse Respiration Blood pressure 97.7 degrees 64/minute 16/minute 114/76 Weight 103 kg DaianaBrian nelsonKALEB.WRONG ADDRESS CLERK 04/30/2024 2:12 PM Signed Chief Complaint Patient presents with: ER F/U: [facility] ER diverticulitis 04/23/2024 HPI Good De Luna is a 58 year old male who presents here today for Hospital Discharge Follow up. follow up for diverticulitis. Patient presenting for emergency room follow-up. Patient went to [facility] on April 23 for complaints of [...] was originally referred to Dr. Wood at [facility] but has not made an appointment. [...] 562.11, ICD10: K57.92 (primary diagnosis) -Diagnosed in [facility]. Last day of Augmentin. Not responding [...] VACCINE AGE 12+ YR (COMIRNATY) Brian Ahmadi APRN.WRONG ADDRESS CLERK RTO in 3 days I spent a total of 31 minutes on the date of the service which included preparing to see the patient, [id number] patient care, completing clinical documentation, obtaining and/or reviewing separately obtained history, performing a medically appropriate examination, counseling and educating the patient/family/caregiver, and ordering medications, tests, or procedures. This note was partly generated using [employer] voice recognition dictation and may contain some misspelled or inaccurate words missed on review. Allergies As of Date: 04/30/2024 (No Known Allergies) Date Reviewed: 04/30/2024 Reviewed by: Rola Riojas LPN - Fully Assessed Reason for Visit: ER F/U [41] Cmt: [facility] ER diverticulitis 04/23/2024 Primary Visit Diagnosis:Diverticulitis [K57.92] Other Visit Diagnoses:Bloody stools [K92.1] Encounter for immunization [Z23] Order(s):PFIZER-BIONTECH COVID-19 VACCINE AGE 12+ YR (COMIRNATY) [64512DIN] Order #: [id number] cefdinir (OMNICEF) 300 mg capsuleTake 1 capsule by mouth two times a day for 7 days.Disp: 14 capsuleRfl: 0 metroNIDAZOLE (FLAGYL) 500 mg tabletTake 1 tablet by mouth every 8 hours for 7 days.Disp: 21 tabletRfl: 0 CONSULT TO GENERAL SURGERY [9011] Order #: [id number]: 1 FUTURE Prescriptions as of 04/30/2024 - [...] patient preference (more content not included)... Normal [facility] CNCOon 04-24-2024 CNCO Letter Text Normal [facility] 12 Lead EKGon 04-23-2024 12 Lead EKG [facility] Cardiovascular Services [address] [place] [address] 12 Lead EKG 04/23/24 1556 MR#: [id number] Acct: [id number] Name: GOOD DE LUNA Rep #: [id number] : 1965 58 From: Erick Sigala MD [...] Abnormal ECG Confirmed by ERICK SIGALA MD ([id number]), editor sound RENARD WILSON ([id number]) on 04/25/2024 1:20:26 PM Referred By: Confirmed By:ERICK SIGALA MD 04/25/24 1320 Date Erick Sigala MD CC: Dr. Mathew Cobian MD; Dr. Franklyn Donaldson DO Signed Normal [facility] CBC W/Diff, Automatedon 10-0 Absolute Neut Normal 2.0-7.[address] [facility] Comment on above: Result Comment: Canc elled via OM: MD Ordered Performed By: #### L 100.0100 #### [facility] [address] [place], [address] HCT Normal 40-[address] [facility] Comment on above: Result Comment: Canc elled via OM: MD Ordered Performed By: #### L 100.0100 #### [facility] [address] [place], [address] HGB Normal 13.0-16.[address] [facility] Comment on above: Result Comment: Canc elled via OM: MD Ordered Performed By: #### L 100.0100 #### [facility] [address] [place], [address] MCH Normal 27.0-32.[address] [facility] Comment on above: Result Comment: Canc elled via OM: MD Ordered Performed By: #### L 100.0100 #### [facility] [address] [place], [address] MCHC Normal 32-[address] [facility] Comment on above: Result Comment: Canc elled via OM: MD Ordered Performed By: #### L 100.0100 #### [facility] [address] [place], [address] MCV Normal 80-[address] [facility] Comment on above: Result Comment: Canc elled via OM: MD Ordered Performed By: #### L 100.0100 #### [facility] [address] [place], [address] NEUT% Normal 47-[address] [facility] Comment on above: Result Comment: Canc elled via OM: MD Ordered Performed By: #### L 100.0100 #### [facility] [address] [place], [address] PLT Normal 150-[address] [facility] Comment on above: Result Comment: Canc elled via OM: MD Ordered Performed By: #### L 100.0100 #### [facility] [address] [place], [address] RBC Normal 4.6-6.[address] [facility] Comment on above: Result Comment: Canc elled via OM: MD Ordered Performed By: #### L 100.0100 #### [facility] [address] [place], [address] RDW CV Normal 11.6-14.[address] [facility] Comment on above: Result Comment: Canc elled via OM: MD Ordered Performed By: #### L 100.0100 #### [facility] [address] [place], [address] RDW SD Normal 35.1-43.[address] [facility] Comment on above: Result Comment: Canc elled via OM: MD Ordered Performed By: #### L 100.0100 #### [facility] [address] [place], [address] WBC Normal 4.4-11.[address] [facility] Comment on above: Result Comment: Canc elled via OM: MD Ordered Performed By: #### L 100.0100 #### [facility] [address] [place], [address] Absolute Lymph 2.33 X10 3/uL Normal 0.83-4.[address] [facility] Comment on above: Performed By: #### B TS, L500.4050, L501.2450, L100.0100, L501.4020 #### [facility] [address] [place], [address] Absolute Neut 6.6 X10 3/uL Normal 2.0-7.[address] [facility] Comment on above: Performed By: #### B TS, L500.4050, L501.2450, L100.0100, L501.4020 #### [facility] [address] [place], [address] Basophils/100 WBC (Bld) 0.3 % Normal 0-[address] [facility] Comment on above: Performed By: #### B TS, L500.4050, L501.2450, L100.0100, L501.4020 #### [facility] [address] [place], [address] Eosinophils/100 WBC (Bld) 1.2 % Normal 0-[address] [facility] Comment on above: Performed By: #### B TS, L500.4050, L501.2450, L100.0100, L501.4020 #### [facility] [address] [place], [address] Erythrocyte distribution width (RBC) [Ratio] 12.5 % Normal 11.6-14.[address] [facility] Comment on above: Performed By: #### B TS, L500.4050, L501.2450, L100.0100, L501.4020 #### [facility] [address] [place], [address] Hematocrit (Bld) [Volume fraction] 42.2 % Normal 40-[address] [facility] Comment on above: Performed By: #### B TS, L500.4050, L501.2450, L100.0100, L501.4020 #### [facility] [address] [place], [address] Hemoglobin (Bld) [Mass/Vol] 13.7 g/dL Normal 13.0-16.[address] [facility] Comment on above: Performed By: #### B TS, L500.4050, L501.2450, L100.0100, L501.4020 #### [facility] [address] [place], [address] IG% 0.700 Normal 0.0-0.[address] [facility] Comment on above: Result Comment: IG% - Immature Granulocytes (promyelocytes, myelocytes and metamyelocytes) > 1% indicates that a LEFT SHIFT is Present. Performed By: #### B TS, L500.4050, L501.2450, L100.0100, L501.4020 #### [facility] [address] [place], [address] Lymphocytes/100 WBC (Bld) 23.3 % Normal 19-[address] [facility] Comment on above: Performed By: #### B TS, L500.4050, L501.2450, L100.0100, L501.4020 #### [facility] [address] [place], [address] MCH (RBC) [Entitic mass] 29.4 pg Normal 27.0-32.[address] [facility] Comment on above: Performed By: #### B TS, L500.4050, L501.2450, L100.0100, L501.4020 #### [facility] [address] [place], [address] MCHC (RBC) [Mass/Vol] 32.5 g/dL Normal 32-[address] [facility] Comment on above: Performed By: #### B TS, L500.4050, L501.2450, L100.0100, L501.4020 #### [facility] [address] [place], [address] MCV (RBC) [Entitic vol] 90.6 fL Normal 80-[address] [facility] Comment on above: Performed By: #### B TS, L500.4050, L501.2450, L100.0100, L501.4020 #### [facility] [address] [place], [address] Monocytes/100 WBC (Bld) 8.4 % Normal 0-[address] [facility] Comment on above: Performed By: #### B TS, L500.4050, L501.2450, L100.0100, L501.4020 #### [facility] [address] [place], [address] Neutrophils/100 WBC (Bld) 66.1 % Normal 47-[address] [facility] Comment on above: Performed By: #### B TS, L500.4050, L501.2450, L100.0100, L501.4020 #### [facility] [address] [place], [address] Nucleated RBC (Bld) [#/Vol] 0 10*3/uL Normal 0-[address] [facility] Comment on above: Performed By: #### B TS, L500.4050, L501.2450, L100.0100, L501.4020 #### [facility] [address] [place], [address] Platelet mean volume (Bld) [Entitic vol] 11.4 fL Normal 6.2-12.[address] [facility] Comment on above: Performed By: #### B TS, L500.4050, L501.2450, L100.0100, L501.4020 #### [facility] [address] [place], [address] Platelets (Bld) [#/Vol] 244 10*3/uL Normal 150-[address] [facility] Comment on above: Performed By: #### B TS, L500.4050, L501.2450, L100.0100, L501.4020 #### [facility] [address] [place], [address] RBC (Bld) [#/Vol] 4.66 10*6/uL Normal 4.6-6.2 [facility] Comment on above: Performed By: #### B TS, L500.4050, L501.2450, L100.0100, L501.4020 #### [facility] [address] [place], [address] RDW SD 40.8 fl Normal 35.1-43.[address] [facility] Comment on above: Performed By: #### B TS, L500.4050, L501.2450, L100.0100, L501.4020 #### [facility] [address] [place], [address] WBC (Bld) [#/Vol] 10.0 10*3/uL Normal 4.4-11.0 [facility] Comment on above: Performed By: #### B TS, L500.4050, L501.2450, L100.0100, L501.4020 #### [facility] [address] [place], [address] CTA Abd/Pelvis W/WO Contrast on 04-23-2024 CTA Abd/Pelvis W/WO Contrast [facility] Imaging Services [address] [place] [address] CTA Abd/Pelvis W/WO Contrast MR#: [id number] Acct: [id number] Name: GOOD DE LUNA Rep #: [id number] : 1965 M 58 From: Ronald Hood MD PCP: Dr. Mathew Cobian MD Status: [facility] ER Study: CTA Abd/Pelvis W/WO Contrast Date of Exam: 08/16 Exam# [id number] Ordering Dr: Franklyn Donaldson DO [id number] INDICATION: abd pain, bloody bowel movements X2 [...] Mathew Cobian MD; Dr. Franklyn Donaldson DO Operations Inspector: Signed [facility] [facility] Comprehensive Metabolic Prof ilon 04-23-2024 Albumin [Mass/Vol] 3.6 g/dL Normal 3.2-5.0 [facility] Comment on above: Order Comment: 'TROP ' Serial specimen #1, #2 or #3: 1 Performed By: #### B TS, L500.4050, L501.2450, L100.0100, L501.4020 #### [facility] [address] [place], [address] Albumin/Globulin [Mass ratio] 0.9 {ratio} Normal 0.9-2.[address] [facility] Comment on above: Order Comment: 'TROP ' Serial specimen #1, #2 or #3: 1 Performed By: #### B TS, L500.4050, L501.2450, L100.0100, L501.4020 #### [facility] [address] [place], [address] ALK P 92 U/L Normal 45-[address] [facility] Comment on above: Order Comment: 'TROP ' Serial specimen #1, #2 or #3: 1 Performed By: #### B TS, L500.4050, L501.2450, L100.0100, L501.4020 #### [facility] [address] [place], [address] ALT [Catalytic activity/Vol] 31 U/L Normal 16-[address] [facility] Comment on above: Order Comment: 'TROP ' Serial specimen #1, #2 or #3: 1 Performed By: #### B TS, L500.4050, L501.2450, L100.0100, L501.4020 #### [facility] [address] [place], [address] AST [Catalytic activity/Vol] 15 U/L Normal 15-[address] [facility] Comment on above: Order Comment: 'TROP ' Serial specimen #1, #2 or #3: 1 Performed By: #### B TS, L500.4050, L501.2450, L100.0100, L501.4020 #### [facility] [address] [place], [address] Bilirubin [Mass/Vol] 0.30 mg/dL Normal 0.20-1.[address] [facility] Comment on above: Order Comment: 'TROP ' Serial specimen #1, #2 or #3: 1 Result Comment: For patients on eltrombopag therapy, use of Dimension Mccoy TBIL is not recommended. Performed By: #### B TS, L500.4050, L501.2450, L100.0100, L501.4020 #### [facility] [address] [place], [address] BUN/CRE 17.2 RATIO Normal 10-[address] [facility] Comment on above: Order Comment: 'TROP ' Serial specimen #1, #2 or #3: 1 Performed By: #### B TS, L500.4050, L501.2450, L100.0100, L501.4020 #### [facility] [address] [place], [address] CA,Total 9.2 mg/dL Normal 8.5-10.[address] [facility] Comment on above: Order Comment: 'TROP ' Serial specimen #1, #2 or #3: 1 Performed By: #### B TS, L500.4050, L501.2450, L100.0100, L501.4020 #### [facility] [address] [place], [address] Chloride [Moles/Vol] 107 mmol/L Normal 98-[address] [facility] Comment on above: Order Comment: 'TROP ' Serial specimen #1, #2 or #3: 1 Performed By: #### B TS, L500.4050, L501.2450, L100.0100, L501.4020 #### [facility] [address] [place], [address] CO2 [Moles/Vol] 25.0 mmol/L Normal 21.0-32.[address] [facility] Comment on above: Order Comment: 'TROP ' Serial specimen #1, #2 or #3: 1 Performed By: #### B TS, L500.4050, L501.2450, L100.0100, L501.4020 #### [facility] [address] [place], [address] Creatinine [Mass/Vol] 1.16 mg/dL Normal 0.70-1.[address] [facility] Comment on above: Order Comment: 'TROP ' Serial specimen #1, #2 or #3: 1 Result Comment: The validity of the calculated GFR GFRAA in patients over 70 years has not been determined. Clinical correlation is essential. Performed By: #### B TS, L500.4050, L501.2450, L100.0100, L501.4020 #### [facility] [address] [place], [address] ECRCL 78.99 ml/min Normal [facility] Comment on above: Order Comment: 'TROP ' Serial specimen #1, #2 or #3: 1 Performed By: #### B TS, L500.4050, L501.2450, L100.0100, L501.4020 #### [facility] [address] [place], [address] EST GFR - AA 84 mL/min Normal >[address] [facility] Comment on above: Order Comment: 'TROP ' Serial specimen #1, #2 or #3: 1 Result Comment: Afri can Serbian GFR Calc Performed By: #### B TS, L500.4050, L501.2450, L100.0100, L501.4020 #### [facility] [address] [place], [address] GAP 6 Normal 5-[address] [facility] Comment on above: Order Comment: 'TROP ' Serial specimen #1, #2 or #3: 1 Performed By: #### B TS, L500.4050, L501.2450, L100.0100, L501.4020 #### [facility] [address] [place], [address] GFR/1.73 sq M.predicted among non-blacks MDRD (S/P/Bld) [Vol rate/Area] 69 mL/min/{1.73_m2} Normal >[address] [facility] Comment on above: Order Comment: 'TROP ' Serial specimen #1, #2 or #3: 1 Result Comment: Non- GFR Calc Performed By: #### B TS, L500.4050, L501.2450, L100.0100, L501.4020 #### [facility] [address] [place], [address] Globulin (S) [Mass/Vol] 4.0 g/dL Normal 2.2-4.[address] [facility] Comment on above: Order Comment: 'TROP ' Serial specimen #1, #2 or #3: 1 Performed By: #### B TS, L500.4050, L501.2450, L100.0100, L501.4020 #### [facility] [address] [place], [address] Glucose [Mass/Vol] 96 mg/dL Normal 74-106 [facility] Comment on above: Order Comment: 'TROP ' Serial specimen #1, #2 or #3: 1 Performed By: #### B TS, L500.4050, L501.2450, L100.0100, L501.4020 #### [facility] [address] [place], [address] Potassium [Moles/Vol] 4.0 mmol/L Normal 3.5-5.[address] [facility] Comment on above: Order Comment: 'TROP ' Serial specimen #1, #2 or #3: 1 Performed By: #### B TS, L500.4050, L501.2450, L100.0100, L501.4020 #### [facility] [address] [place], [address] Sodium [Moles/Vol] 138 mmol/L Normal 136-145 [facility] Comment on above: Order Comment: 'TROP ' Serial specimen #1, #2 or #3: 1 Performed By: #### B TS, L500.4050, L501.2450, L100.0100, L501.4020 #### [facility] [address] [place], [address] T PROT 7.6 g/dL Normal 6.4-8.[address] [facility] Comment on above: Order Comment: 'TROP ' Serial specimen #1, #2 or #3: 1 Performed By: #### B TS, L500.4050, L501.2450, L100.0100, L501.4020 #### [facility] [address] [place], [address] Urea nitrogen [Mass/Vol] 20 mg/dL High 7-[address] [facility] Comment on above: Order Comment: 'TROP ' Serial specimen #1, #2 or #3: 1 Performed By: #### B TS, L500.4050, L501.2450, L100.0100, L501.4020 #### [facility] [address] [place], [address] Emergency Department Summary on 04-23-2024 Emergency Department Summary [facility] Medical Records Department [address] [facility] [place] [address] Emergency Department Summary 04/23/24 MR#: [id number] Acct: [id number] Name: GOOD DE LUNA Rep #: [id number] : 1965 58 From: Franklyn Donaldson DO [...] otherwise feels well denies any sick contacts. [facility] Medical History Alcohol abuse Anxiety History of [...] follow commands knew that he was at [facility] years 2023 Skin: Warm, dry, intact [...] evidence leukocy (more content not included)... Normal [facility] L501.4020on 04-23-2024 TROPONIN-I HS 6 pg/mL Normal 3.0-78.[address] [facility] Comment on above: Order Comment: 'TROP ' Serial specimen #1, #2 or #3: 1 Result Comment: Ricki summers Note: New Test Units and Gender Specific Reference Ranges. For more information see Policy Stat Procedure Mccoy High Sensitivity Troponin (TNIH) and attachments. Performed By: #### B TS, L500.4050, L501.2450, L100.0100, L501.4020 ####[facility] [address] [place], [address] Lactic Acidon 04-23-2024 Lactate [Moles/Vol] 1.0 mmol/L Normal 0.4-1.9 [facility] Comment on above: Order Comment: Y Performed By: #### L 804.2152 #### [facility] [address] [place], [address] Lipaseon 04-23-2024 Lipase [Catalytic activity/Vol] 32 U/L Normal 13-[address] [facility] Comment on above: Order Comment: 'TROP ' Serial specimen #1, #2 or #3: 1 Result Comment: Ricki summers note: LIPASE revised reference range effective 22. New Lipase methodology. Expected to produce lower values than the previous assay method. NEW Reference Range: 13 - 75 U/L Performed By: #### B TS, L500.4050, L501.2450, L100.0100, L501.4020 ####[facility] [address] [place], [address] Stool Occult Blood iFOBon STOB Positive Normal [facility] Comment on above: Performed By: #### M 100.7900 #### [facility] [address] [place], [address] Type AND Screenon 04-23-2024 ABO and Rh group Nom (Bld) Blood group O Rh(D) positive Normal [facility] Comment on above: Order Comment: REDRA W. PREVIOUS SPECIMEN REJECTED DUE TOWRITING ON FENWAL BAND SMEARED OFF;ILLEGIBLE. 04/23/24 1613A Performed By: #### B TS ####[facility] [address] [place], [address] A1 CELL Not performed Normal [facility] Comment on above: Order Comment: A Result Comment: This specimen has been REJECTED due to Laboratory criteria: MisLabelled-WRITING ON FENWAL SMEARED OFF;ILLEGIBLE. ED-POT LINING SUPERVISOR has been notified of need of recollection. 04/23/24 161 Performed By: #### B TS, L500.4050, L501.2450, L100.0100, L501.4020 #### [facility] [address] [place], [address] Ab SCREEN GEL Not performed Normal [facility] Comment on above: Order Comment: A Result Comment: This specimen has been REJECTED due to Laboratory criteria: MisLabelled-WRITING ON FENWAL SMEARED OFF;ILLEGIBLE. ED-POT LINING SUPERVISOR has been notified of need of recollection. 04/23/241610 Performed By: #### B TS, L500.4050, L501.2450, L100.0100, L501.4020 #### [facility] [address] [place], [address] ABO and Rh group Nom (Bld) Test Not Performed Normal [facility] Comment on above: Order Comment: A Result Comment: This specimen has been REJECTED due to Laboratory criteria: MisLabelled-WRITING ON FENWAL SMEARED OFF;ILLEGIBLE. ED-POT LINING SUPERVISOR has been notified of need of recollection. 04/23/241610 Performed By: #### B TS, L500.4050, L501.2450, L100.0100, L501.4020 #### [facility] [address] [place], [address] ANTI A Not performed Normal [facility] Comment on above: Order Comment: A Result Comment: This specimen has been REJECTED due to Laboratory criteria: MisLabelled-WRITING ON FENWAL SMEARED OFF;ILLEGIBLE. ED-POT LINING SUPERVISOR has been notified of need of recollection. 04/23/241610 Performed By: #### B TS, L500.4050, L501.2450, L100.0100, L501.4020 #### [facility] [address] [place], [address] ANTI B Not performed Normal [facility] Comment on above: Order Comment: A Result Comment: This specimen has been REJECTED due to Laboratory criteria: MisLabelled-WRITING ON FENWAL SMEARED OFF;ILLEGIBLE. ED-POT LINING SUPERVISOR has been notified of need of recollection. 04/23/241610 Performed By: #### B TS, L500.4050, L501.2450, L100.0100, L501.4020 #### [facility] [address] [place], [address] ANTI D Not performed Normal [facility] Comment on above: Order Comment: A Result Comment: This specimen has been REJECTED due to Laboratory criteria: MisLabelled-WRITING ON FENWAL SMEARED OFF;ILLEGIBLE. ED-POT LINING SUPERVISOR has been notified of need of recollection. 04/23/241610 Performed By: #### B TS, L500.4050, L501.2450, L100.0100, L501.4020 #### [facility] [address] [place], [address] B CELLS Not performed Normal [facility] Comment on above: Order Comment: A Result Comment: This specimen has been REJECTED due to Laboratory criteria: MisLabelled-WRITING ON FENWAL SMEARED OFF;ILLEGIBLE. ED-POT LINING SUPERVISOR has been notified of need of recollection. 04/23/241610 Performed By: #### B TS, L500.4050, L501.2450, L100.0100, L501.4020 #### [facility] [address] [place], [address] BLD TYPE RECHEK Not performed Normal [facility] Comment on above: Order Comment: A Result Comment: This specimen has been REJECTED due to Laboratory criteria: MisLabelled-WRITING ON FENWAL SMEARED OFF;ILLEGIBLE. ED-POT LINING SUPERVISOR has been notified of need of recollection. 04/23/241610 Performed By: #### B TS, L500.4050, L501.2450, L100.0100, L501.4020 #### [facility] [address] [place], [address] CNOVon 04-17-2024 CNOV Office Visit (FAMPWS ) GOOD DE LUNA ([id number]) 1965 M Date Time Provider Department 04/17/24 9:40 AM GYPSY SYED During your visit today, we recorded the following information about you: Pulse Respiration Blood pressure Weight 68/minute 16/minute 122/80 104.6 kg Gypsy Syed APRN.WRONG ADDRESS CLERK 04/17/2024 11:30 AM Signed This is a [...] Sensation grossly (more content not included)... Normal [facility] CNOVon 04-12-2024 CNOV Office Visit (FAMPWS ) GOOD [place] LUNA ([id number]) 1965 M Date Time Provider Department 04/12/24 10:40 AM [facility] During your visit today, we recorded the following information about you: Pulse Respiration Blood pressure Weight 61/minute 16/minute 112/70 103.9 kg Brian Ahmadi APRN.[facility] 04/12/2024 10:58 AM Signed Chief Complaint Patient presents with: Follow Up: 4 week [facility] Good Chacorta Calixto is a 58 year [...] neurology in April with Dr. Cisse in [place]. He has been following with ear nose and throat at [facility] for inner ear problems. He was given [...] medications for the past month. Brian Ahmadi APRN.WRONG ADDRESS CLERK RTO in 3 months, sooner if needed. This note was partly generated using [employer]ial[employer] voice recognition dictation and may contain some [...] Nicotine u (more content not included)... Normal [facility] TSH SerPl-aCncon 04-12-2024 TSH Qn 0.123 m[IU]/L Low 0.270-4.200 [facility] Comment on above: Order Comment: Speci magaly Type: BLOOD SPECIMENOrdering Facility: [facility] Address: [address] [facility] [address] Performed By: #### 3 016-3 ####[facility] LABCLIA [id number] [id number] [id number] [facility] Lizzy 04-04-2024 PATTIEN Telephone (INTMWS) GOOD [place] LUNA ([id number]) 1965 M Date Time Provider Department 04/04/24 MATHEW COBIAN INTMWS During your visit today, we recorded the following information about you: Angelika Geller LPN 04/04/2024 2:08 PM Signed Pt calls requesting a referral for another ENT states is wanting a second opinion . Has been seeing someone here in [facility]. Asking for someone maybe in [place]. Please advise. Brian Ahmadi APRN.CNP 04/04/2024 2:59 PM Signed Please let the patient know that I placed a referral to ENT. We usually have patients go to [place]. Brian Ahmadi APRN.Ross Ross LPN 04/04/2024 3:25 PM Signed Patient notified of referral, verbalizes understanding of instructions. Ross Roldan LPN Allergies As of Date: 04/04/2024 (No Known Allergies) Date Reviewed: 03/15/2024 Reviewed by: Scarlet Pascual LPN - Fully Assessed Reason for Visit: Consult [502] Primary Visit Diagnosis:Dizziness and giddiness [R42] Order(s):CONSULT TO ENT [9008] Order #: [id number]: 1 FUTURE Prescriptions as of 04/04/2024 - [...] Encounter Status:Closed by ROSS ROLDAN on 04/04/24 [facility] CNOVon 03-15-2024 CNOV Office Visit (FAMPWS ) GOOD [place] LUNA ([id number]) 1965 M Date Time Provider Department 03/15/24 10:20 AM BRIAN AHMADI During your visit today, we recorded the following information about you: Pulse Respiration Blood pressure 62/minute 16/minute 124/68 Brian Ahmadi APRN.[facility] 03/15/2024 11:25 AM Signed Chief Complaint [...] reassess. - BACH SCREENING TEST Brian Ahmadi APRN.WRONG ADDRESS CLERK RTO in 1 months, sooner if needed. This note was partly generated using AxialMED voice recognition dictation and may contain some [...] 3 THYROID STIMULATING HORMONE [SQTSH] Order #: [id number] FUTURE buPROPion XL (WELLBUTRIN XL) 150 mg 24 hr tablet (more content not included)... Normal [facility] 03-15-[address] [facility] Telephone (FAMPWS) GOOD [place] LU[place] ([id number]) 1965 M Date Time Provider Department 03/15/24 [...] Encounter Status:Closed by SCARLET PASCUAL on 03/15/24 [facility] 03-13-[address] [facility] Telephone (VERNELL) GOOD [place] LUNA ([id number]) 1965 M Date Time Provider Department 03/13/24 BRIAN AHMADI [facility] During your visit today, we recorded the following information about you: Brian Ahmadi APRN.WRONG ADDRESS CLERK 03/13/2024 8:32 AM Signed Please assist with [...] Encounter Status:Closed by ROSS ROLDAN on 03/13/24 [facility] CNOVon 03-12-2024 CNOV Office Visit (UROLMD ) GOOD [place] LU[place] ([id number]) 1965 M Date Time Provider Department 03/12/24 11:30 AM RAPHAEL CALDERON JR UROLIZY During your visit today, we recorded the following information about you: Weight Height 103.9 kg 1.651 m Raphael Calderon Jr., MD 03/12/2024 12:24 PM Signed ESTABLISHED PATIENT OFFICE VISIT HPI Good Herringson is a 58 year old male who presents Previous note dr. Sibley Simpson 6 Prostate Cancer. 09/04 cores found. Prostate [...] cancer (HCC) [C61] Order(s):MRI PROSTATE WO/W IVCON [4899480] Order #: [id number] FUTURE iv contrast (will be provided with radiology test)MRI Prostate Inject, intravenously, once for 1 dose. No IV access, inse (more content not included)... Normal [facility] Comprehensive metabolic 2000 panelon 03-12-2024 Albumin [Mass/Vol] 4.6 g/dL Normal 3.9-4.9 [facility] Comment on above: Order Comment: Speci men Type: BLOOD SPECIMENOrdering Facility: [facility] Address: [facility] [place] [address] Performed By: #### 3 016-3, 80787-4 ####[facility] LABCLIA [id number] [place] [address] [place] ALP [Catalytic activity/Vol] 107 U/L Normal 38-113 [facility] Comment on above: Order Comment: Speci men Type: BLOOD SPECIMENOrdering Facility: [facility] Address: [address] [place] [address] Performed By: #### 3 016-3, 75221-6 ####[facility] LABCLIA [id number] [place] [address] [place] ALT [Catalytic activity/Vol] 29 U/L Normal 10-54 [facility] Comment on above: Order Comment: Speci men Type: BLOOD SPECIMENOrdering Facility: [facility] Address: [address] [place] [address] Performed By: #### 3 016-3, ####[facility] LABCLIA [id number] [place] [id number] [place] Anion gap [Moles/Vol] 13 mmol/L Normal 8-15 [facility] Comment on above: Order Comment: Speci men Type: BLOOD SPECIMENOrdering Facility: [facility] Address: [facility] [place] [address] Performed By: #### 3 016-3, 91089-9 ####[facility] LABCLIA [id number] [place] [id number] [place] AST [Catalytic activity/Vol] 23 U/L Normal 14-40 [facility] Comment on above: Order Comment: Speci men Type: BLOOD SPECIMENOrdering Facility: [facility] Address: [address] [place] [address] Performed By: #### 3 016-3, ####[facility] LABCLIA [id number] [place] [address] [place] Bilirubin [Mass/Vol] 0.6 mg/dL Normal 0.2-1.3 [facility] Comment on above: Order Comment: Speci men Type: BLOOD SPECIMENOrdering Facility: [facility] Address: [address] [place] [address] Performed By: #### 3 016-3, ####[facility] LABCLIA [id number] [place] [address] [place] Calcium [Mass/Vol] 9.6 mg/dL Normal 8.5-10.2 [facility] Comment on above: Order Comment: Speci men Type: BLOOD SPECIMENOrdering Facility: [facility] Address: [address] [place] [address] Performed By: #### 3 016-3, ####[facility] LABCLIA [id number] [place] [address] [place] Chloride [Moles/Vol] 99 mmol/L Normal 98-107 [facility] Comment on above: Order Comment: Speci men Type: BLOOD SPECIMENOrdering Facility: [facility] Address: [address] [place] [address] Performed By: #### 3 016-3, ####[facility] LABCLIA [id number] [place] [address] [place] CO2 [Moles/Vol] 25 mmol/L Normal 22-30 [facility] Comment on above: Order Comment: Speci men Type: BLOOD SPECIMENOrdering Facility: [facility] Address: [address] [place] [address] Performed By: #### 3 016-3, 93145-5 ####[facility] LABIA [id number] [place] [address] [place] Creatinine [Mass/Vol] 1.26 mg/dL High 0.73-1.22 [facility] Comment on above: Order Comment: Speci men Type: BLOOD SPECIMENOrdering Facility: [facility] Address: [address] [place] [address] Performed By: #### 3 016-3, 10916-6 ####[facility] LABIA [id number] [place] [address] [place] Creatinine and Glomerular filtration rate.predicted panel (S/P/Bld) 67 mL/min/1.73m??? Normal >=60 [facility] Comment on above: Order Comment: Juani men Type: BLOOD SPECIMENOrdering Facility: [facility] Address: [address] [place] [address] Result Comment: Heidi mated Glomerular Filtration Rate [...] actual GFR. Performed By: #### 3 016-3, 73377-0 ####[facility] LABIA [id number] [place] [address] [place] Glucose [Mass/Vol] 89 mg/dL Normal 74-99 [facility] Comment on above: Order Comment: Speci men Type: BLOOD SPECIMENOrdering Facility: [facility] Address: [address] [place] [address] Result Comment: The [place] Diabetes Association (ADA) provides guidance for cutoff [...] Standards of Medical Care in Diabetes 2016, [place] [employer]. Diabetes Care. 2016.39(Suppl 1). Performed By: #### 3 -, ####[facility] LABCLIA [id number] [place] [address] [place] Potassium [Moles/Vol] 4.2 mmol/L Normal 3.7-5.1 [facility] Comment on above: Order Comment: Juani magaly Type: BLOOD SPECIMENOrdering Facility: [facility] Address: [address] [place] [address] Performed By: #### 3 , ####[facility] LABCLIA [id number] [place] [address] [place] Protein [Mass/Vol] 7.8 g/dL Normal 6.3-8.0 [facility] Comment on above: Order Comment: Mejia mckenzie Type: BLOOD SPECIMENOrdering Facility: [facility] Address: [address] [place] [address] Performed By: #### 3 , ####[facility] LABCLIA [id number] [place] [address] [place] Sodium [Moles/Vol] 137 mmol/L Normal 136-144 [facility] Comment on above: Order Comment: Juani men Type: BLOOD SPECIMENOrdering Facility: [facility] Address: [address] [place] [address] Performed By: #### 3 016, ####[facility] LABCLIA [id number] [place] [facility] Urea nitrogen [Mass/Vol] 21 mg/dL Normal 9-24 [facility] Comment on above: Order Comment: Speci men Type: BLOOD SPECIMENOrdering Facility: [facility] Address: [address] [place] [address] Performed By: #### 3 016-3, 66914-7 ####[facility] LABCLIA [id number] [address] [place] TSH SerPl-aCncon 03-12-2024 TSH Qn 10.400 m[IU]/L High 0.270-4.200 [facility] Comment on above: Order Comment: Speci men Type: BLOOD SPECIMENOrdering Facility: [facility] Address: [address] [place] [address] Performed By: #### 3 016-3, 68205-7 ####[facility] LABIA [id number] [address] [place] CNPNon 02-27-2024 [facility] [place] ([id number]) 1965 M Date Time Provider Department 02/27/24 [facility] During your visit today, we recorded [...] know I would send his information to [facility] for him. Pt also missed his neurology appointment in [place] in December, Pt put through to scheduling to set up. Faxed demographic sheet, orders, and 10/17/23 OV note to fax # [phone]. Allergies As of Date: 02/27/2024 (No Known Allergies) Date Reviewed: 02/17/2024 Reviewed by: Genevieve De La Garza MA - Fully Assessed Reason for Visit: Appointment [186] Patient Question [1206] Prescriptions as of 02/27/2024 - omeprazole (PRILOSEC) [...] Encounter Status:Closed by RENARD LO on 02/27/24 [facility] CNOVon 02-17-2024 CNOV Office Visit (UCWSTR ) [place] ([id number]) 1965 M Date Time Provider Department 02/17/24 11:45 AM ABBE ADAME [facility] During your visit today, we recorded the following information about you: Temperature Pulse Respiration Blood pressure 96.9 degrees 75/minute 21/minute 120/74 Weight 105.5 kg Abbe Adame APRN.WRONG ADDRESS CLERK 02/17/2024 11:58 AM Signed Subjective Came in with complaints of itching rash on the left lower ankle. Patient says that he noticed it this morning. Patient was outside yesterday but did not get into [place]. Patient denies any other symptoms other than itching. The history is provided by the patient. No foreign languages professor was used. Rash Review of Systems Constitutional: [...] okay with this care plan. Abbe Adame APRN.WRONG ADDRESS CLERK Allergies As of Date: 02/17/2024 (No Known [...] (if indica (more content not included)... Normal [facility] CBC W Auto Differential pane l (Bld)on 12-14-2023 Basophils (Bld) [#/Vol] 0.05 10*3/uL NINF [facility] Basophils/100 WBC (Bld) 0.5 % [facility] Differential cell count method Nom (Bld) Auto [facility] Eosinophils (Bld) [#/Vol] 0.16 10*3/uL [facility] Eosinophils/100 WBC (Bld) 1.5 % [facility] Erythrocyte distribution width (RBC) [Ratio] 12.9 % 11.5 - 15.0 % [facility] Hematocrit (Bld) [Volume fraction] 45.5 % 39.0 - 51.0 % [facility] Hemoglobin (Bld) [Mass/Vol] 14.7 g/dL 13.0 - 17.0 g/dL [facility] Immature granulocytes (Bld) [#/Vol] 0.04 10*3/uL [facility] Immature granulocytes/100 WBC (Bld) 0.4 % [facility] Interpretation and review of laboratory results Abnormal [facility] Lymphocytes (Bld) [#/Vol] 2.20 10*3/uL [facility] Lymphocytes/100 WBC (Bld) 21.0 % [facility] MCH (RBC) [Entitic mass] 29.7 pg 26.0 - 34.0 pg [facility] MCHC (RBC) [Mass/Vol] 32.3 g/dL 30.5 - 36.0 g/dL [facility] MCV (RBC) [Entitic vol] 91.9 fL 80.0 - 100.0 fL [facility] Monocytes (Bld) [#/Vol] 0.87 10*3/uL High [facility] Monocytes/100 WBC (Bld) 8.3 % [facility] Neutrophils (Bld) [#/Vol] 7.15 10*3/uL [facility] Neutrophils/100 WBC (Bld) 68.3 % [facility] Nucleated RBC (Bld) [#/Vol] [facility] Nucleated RBC/100 WBC (Bld) [Ratio] 0.0 % /100 WBC [facility] Platelet mean volume (Bld) [Entitic vol] 11.8 fL 9.0 - 12.7 fL [facility] Platelets (Bld) [#/Vol] 242 10*3/uL [facility] RBC (Bld) [#/Vol] 4.95 10*6/uL 4.20 - 6.0 0 m/uL [facility] WBC (Bld) [#/Vol] 10.47 10*3/uL [facility] Comprehensive metabolic 2000 panelon 12-14-2023 Albumin [Mass/Vol] 4.4 g/dL 3.9 - 4.9 g/dL [facility] ALP [Catalytic activity/Vol] 88 U/L 38 - 113 U/L [facility] ALT [Catalytic activity/Vol] 31 U/L 10 - 54 U/L [facility] Anion gap [Moles/Vol] 15 mmol/L 9 - 18 mmol/L [facility] AST [Catalytic activity/Vol] 27 U/L 14 - 40 U/L [facility] Bilirubin [Mass/Vol] 0.3 mg/dL 0.2 - 1.3 mg/dL [facility] Calcium [Mass/Vol] 9.7 mg/dL 8.5 - 10. 2 mg/dL [facility] Chloride [Moles/Vol] 99 mmol/L 97 - 105 mmol/L [facility] CO2 [Moles/Vol] 23 mmol/L 22 - 30 mmol/L [facility] Creatinine [Mass/Vol] 1.11 mg/dL 0.73 - 1.22 mg/dL [facility] GFR/1.73 sq M.predicted among non-blacks MDRD (S/P/Bld) [Vol rate/Area] 78 mL/min/{1.73_m2} - PINF [facility] Comment on above: Estimated Glomerular Filtration Rate [...] [Mass/Vol] 95 mg/dL 74 - 99 mg/dL [facility] Comment on above: The [place] Diabete s Association (ADA) provides guidance for [...] Standards of Medical Care in Diabetes 2016, [place] Diabetes Association. Diabetes Care. 2016.39(Suppl 1). Interpretation and review of laboratory results Normal [facility] Potassium [Moles/Vol] 4.7 mmol/L 3.7 - 5.1 mmol/L [facility] Protein [Mass/Vol] 7.1 g/dL 6.3 - 8.0 g/dL [facility] Sodium [Moles/Vol] 137 mmol/L 136 - 144 mmol/L [facility] Urea nitrogen [Mass/Vol] 17 mg/dL 9 - 24 mg/dL [facility] FOLATE, SERUMon 12-14-2023 Folate [Mass/Vol] 18.5 ng/mL 4.7 - PINF ng/mL [facility] No Panel Informationon 12-13 Interpretation and review of laboratory results Normal [facility] Interpretation and review of laboratory results Normal [facility] T4 FREE/FREE THYROXINEon Free T4 [Mass/Vol] 1.1 ng/dL 0.9 - 1.7 ng/dL [facility] THYROID STIMULATING HORMONEo n 12-14-2023 TSH Qn 3.070 m[IU]/L [facility] VITAMIN B12on 12-14-2023 Cobalamin (Vitamin B12) [Mass/Vol] 464 pg/mL 232 - 1245 pg/mL [facility] No Panel Informationon 10-31 [facility] UA DIP, URINE (POC)on 2023 BILIRUBIN UA (POCT) Negative Negative [facility] CLARITY UA (POCT) Clear [facility] COLOR UA (POCT) Yellow [facility] GLUCOSE UA (POCT) Negative Negative mg/dL [facility] Hemoglobin Ql (U) Negative Negative [facility] KETONE UA (POCT) Trace Negative mg/dL [facility] LEUKOCYTES UA (POCT) Negative Negative [facility] NITRITE UA (POCT) Negative Negative [facility] UA (POCT) 6.0 4.5 - 8.0 [facility] Protein Ql (U) 30 mg/dL Abnormal Negative mg/dL [facility] SPECIFIC GRAVITY UA (POCT) 1.025 1.005 - 1.030 [facility] UROBILINOGEN UA (POCT) 0.2 E.U./dL Normal E.U./dL [facility] 36on 10-11-2023 36 Name of caller: Rodríguez [facility] Contact phone number: [phone] Appointment scheduled with: Dr. Taylor Appointment date & time: 10/18/23 8:00 AM Reason for visit (are you having any symptoms) : Developmental venous anomaly 09/26/23 ED admission Transportation issues/ concerns: No Special accommodations? ( wheel chair, etc) : None Current medications: No Any refills need: None Any chronic conditions the provider should be aware of: No Normal [facility] CALCIUMon 09-28-2023 Calcium [Mass/Vol] 9.0 mg/dL Normal 8.6-10.5 [facility] Comment on above: Performed By: #### I PB, CA, MGO, CHM7 #### [facility] (DEFAULT) [address] [address] Calcium [Mass/Vol] 9.0 mg/dL 8.6 - 10. 5 mg/dL [facility] CBC AND ELECTRONIC DIFFon Abs Baso Auto < Normal 0.00-0.09 [facility] Comment on above: Performed By: #### A 1CB, [id number] #### [facility] (DEFAULT) [address] [address] Basophils/100 WBC (Bld) 0.3 % Normal [facility] Comment on above: Performed By: #### A 1CB, [id number] #### [facility] (DEFAULT) [address] [address] DIFF STATUS Electronic Differential Normal [facility] Comment on above: Performed By: #### A 1CB, [id number] #### [facility] (DEFAULT) [address] [address] Eosinophils (Bld) [#/Vol] 0.22 10*3/uL Normal 0.00-0.48 [facility] Comment on above: Performed By: #### A 1CB, [id number] #### [facility] (DEFAULT) [address] [place] [address] Eosinophils/100 WBC (Bld) 2.2 % Normal [facility] Comment on above: Performed By: #### A 1CB, [id number] #### [facility] (DEFAULT) [address] [address] Hematocrit (Bld) [Volume fraction] 41.1 % Normal 39.6-48.8 [facility] Comment on above: Performed By: #### A 1CB, [id number] #### [facility] (DEFAULT) [address] [address] Hemoglobin (Bld) [Mass/Vol] 13.4 g/dL Normal 13.4-16.8 [facility] Comment on above: Performed By: #### A 1CB, [id number] #### [facility] (DEFAULT) [address] [address] Immature Grans % 0.7 % Normal [facility] Comment on above: Performed By: #### A 1CB, [id number] #### [facility] (DEFAULT) [address] [address] Immature Grans Absolute 0.07 K/uL Normal <=0.07 [facility] Comment on above: Performed By: #### A 1CB, [id number] #### [facility] (DEFAULT) [address] [place] [address] Lymphocytes (Bld) [#/Vol] 2.02 10*3/uL Normal 0.83-3.57 [facility] Comment on above: Performed By: #### A 1CB, [id number] #### [facility] (DEFAULT) [address] [address] Lymphocytes/100 WBC (Bld) 20.2 % Normal [facility] Comment on above: Performed By: #### A 1CB, [id number] #### [facility] (DEFAULT) [address] [address] MCV (RBC) [Entitic vol] 93.0 fL Normal 79.0-94.5 [facility] Comment on above: Performed By: #### Jonel DEVINE, [id number] #### [facility] (DEFAULT) [address] [place] [address] Mean Cell Hgb 30.3 pg Normal 26.1-33.3 [facility] Comment on above: Performed By: #### Jonel 1CB, [id number] #### [facility] (DEFAULT) [address] [place] [address] Mean Cell Hgb Conc 32.6 g/dL Normal 31.9-36.5 [facility] Comment on above: Performed By: #### Jonel DEVINE, [id number] #### [facility] (DEFAULT) [address] [place] [address] Monocytes (Bld) [#/Vol] 0.95 10*3/uL High 0.24-0.93 [facility] Comment on above: Performed By: #### Jonel DEVINE, [id number] #### [facility] (DEFAULT) [address] [place] [address] Monocytes/100 WBC (Bld) 9.5 % Normal [facility] Comment on above: Performed By: #### Jonel 1CB, [id number] #### [facility] (DEFAULT) [address] [place] [address] Nucleated RBC 0.0 /100 WBC Normal <=0.2 [facility] Comment on above: Performed By: #### Jonel 1CB, [id number] #### [facility] (DEFAULT) [address] [place] [address] Platelet mean volume (Bld) [Entitic vol] 11.6 fL Normal 8.7-12.3 [facility] Comment on above: Performed By: #### Jonel 1CB, [id number] #### [facility] (DEFAULT) [address] [place] [address] Platelets (Bld) [#/Vol] 218 10*3/uL Normal 146-337 [facility] Comment on above: Performed By: #### Jonel DEVINE, [id number] #### [facility] (DEFAULT) [address] [place] [address] RBC (Bld) [#/Vol] 4.42 10*6/uL Normal 4.38-5.83 [facility] Comment on above: Performed By: #### Jonel DEVINE, [id number] #### [facility] (DEFAULT) [address] [place] [address] RBC Distribution 13.0 % Normal 10.9-14.3 [facility] Comment on above: Performed By: #### Jonel DEVINE, [id number] #### [facility] (DEFAULT) [address] [place] [address] Segs + Bands Auto 67.1 % Normal [facility] Comment on above: Performed By: #### Jonel DEVINE, [id number] #### [facility] (DEFAULT) [address] [place] [address] Segs + Bands,Absolute Auto 6.72 K/uL High 1.57-6.19 [facility] Comment on above: Performed By: #### Jonel DEVINE, [id number] #### [facility] (DEFAULT) [address] [place] [address] WBC (Bld) [#/Vol] 10.01 10*3/uL Normal 3.73-10.10 [facility] Comment on above: Performed By: #### Jonel DEVINE, [id number] #### [facility] (DEFAULT) [address] [place] [address] Basophils (Bld) [#/Vol] K/uL 0.00 - 0.09 K/uL [facility] Basophils/100 WBC (Bld) 0.3 % [facility] Differential cell count method Nom (Bld) Electronic Differential [facility] Eosinophils (Bld) [#/Vol] 0.22 10*3/uL 0.00 - 0.48 K/uL [facility] Eosinophils/100 WBC (Bld) 2.2 % [facility] Erythrocyte distribution width (RBC) [Ratio] 13.0 % 10.9 - 14.3 % [facility] Hematocrit (Bld) [Volume fraction] 41.1 % 39.6 - 48.8 % [facility] Hemoglobin (Bld) [Mass/Vol] 13.4 g/dL 13.4 - 16.8 g/dL [facility] Immature granulocytes (Bld) [#/Vol] 0.07 10*3/uL NINF - 0.07 K/uL [facility] Immature granulocytes/100 WBC (Bld) 0.7 % [facility] Interpretation and review of laboratory results Abnormal [facility] Lymphocytes (Bld) [#/Vol] 2.02 10*3/uL 0.83 - 3.57 K/uL [facility] Lymphocytes/100 WBC (Bld) 20.2 % [facility] MCH (RBC) [Entitic mass] 30.3 pg 26.1 - 33.3 pg [facility] MCHC (RBC) [Mass/Vol] 32.6 g/dL 31.9 - 36.5 g/dL [facility] MCV (RBC) [Entitic vol] 93.0 fL 79.0 - 94.5 fL [facility] Monocytes (Bld) [#/Vol] 0.95 10*3/uL High 0.24 - 0.93 K/uL [facility] Monocytes/100 WBC (Bld) 9.5 % [facility] Neutrophils (Bld) [#/Vol] 6.72 10*3/uL High 1.57 - 6.19 K/uL [facility] Nucleated RBC/100 WBC (Bld) [Ratio] 0.0 % [facility] Platelet mean volume (Bld) [Entitic vol] 11.6 fL 8.7 - 12.3 fL [facility] Platelets (Bld) [#/Vol] 218 10*3/uL 146 - 337 K/uL [facility] RBC (Bld) [#/Vol] 4.42 10*6/uL [facility] Segmented neutrophils/100 WBC (Bld) 67.1 % [facility] WBC (Bld) [#/Vol] 10.01 10*3/uL 3.73 - 10 .10 K/uL [facility] CHEM 7 (LYTES,BUN,CREA,GLUC) on 09-28-2023 Anion gap [Moles/Vol] 10 mmol/L Normal 7-17 [facility] Comment on above: Performed By: #### I PB, CA, MGO, CHM7 #### [facility] (DEFAULT) [address] [place] [address] Chloride [Moles/Vol] 103 mmol/L Normal 98-108 [facility] Comment on above: Performed By: #### I PB, CA, MGO, CHM7 #### [facility] (DEFAULT) [address] [place] [address] CO2 [Moles/Vol] 28 mmol/L Normal 21-31 [facility] Comment on above: Performed By: #### I PB, CA, MGO, CHM7 #### [facility] (DEFAULT) [address] [place] [address] Creatinine [Mass/Vol] 1.04 mg/dL Normal 0.70-1.30 [facility] Comment on above: Performed By: #### I PB, CA, MGO, CHM7 #### [facility] (DEFAULT) [address] [place] [address] GFR/1.73 sq M.predicted among non-blacks MDRD (S/P/Bld) [Vol rate/Area] 84 mL/min/{1.73_m2} Normal >=60 [facility] Comment on above: Result Comment: Repo rted eGFR is based on the CKD-EPI 2020 equation using creatinine, age, and sex. Performed By: #### I PB, CA, MGO, CHM7 #### [facility] (DEFAULT) [address] [place] [address] Glucose [Mass/Vol] 115 mg/dL High 70-99 [facility] Comment on above: Performed By: #### I PB, CA, MGO, CHM7 #### [facility] (DEFAULT) [address] [place] [address] Osmolality [Osmolality] 291 mosm/kg Normal 278-305 [facility] Comment on above: Performed By: #### I PB, CA, MGO, CHM7 #### [facility] (DEFAULT) [address] [place] [address] Potassium [Moles/Vol] 4.2 mmol/L Normal 3.5-5.0 [facility] Comment on above: Performed By: #### I PB, CA, MGO, CHM7 #### [facility] (DEFAULT) [address] [place] [address] Sodium [Moles/Vol] 137 mmol/L Normal 135-145 [facility] Comment on above: Performed By: #### I PB, CA, MGO, CHM7 #### [facility] (DEFAULT) [address] [place] [address] Urea nitrogen [Mass/Vol] 19 mg/dL Normal 7-25 [facility] Comment on above: Performed By: #### I PB, CA, MGO, CHM7 #### [facility] (DEFAULT) [address] [place] [address] Urea nitrogen/Creatinine [Mass ratio] 18 mg/mg Normal [facility] Comment on above: Performed By: #### I PB, CA, MGO, CHM7 #### [facility] (DEFAULT) [address] [place] [address] Anion gap [Moles/Vol] 10 mmol/L 7 - 17 mmol/L [facility] Chloride [Moles/Vol] 103 mmol/L 98 - 108 mmol/L [facility] CO2 [Moles/Vol] 28 mmol/L 21 - 31 mmol/L [facility] Creatinine [Mass/Vol] 1.04 mg/dL 0.70 - 1.30 mg/dL [facility] eGFR, CKD-EPI, Male 84 - PINF [facility] Comment on above: Reported eGFR is bas ed on the CKD-EPI 2020 equation using creatinine, age, and sex. Glucose [Mass/Vol] 115 mg/dL High 70 - 99 mg/dL [facility] Interpretation and review of laboratory results Abnormal [facility] Osmolality Calc [Osmolality] 291 [facility] Potassium [Moles/Vol] 4.2 mmol/L 3.5 - 5.0 mmol/L [facility] Sodium [Moles/Vol] 137 mmol/L 135 - 145 mmol/L [facility] Urea nitrogen [Mass/Vol] 19 mg/dL 7 - 25 mg/dL [facility] Urea nitrogen/Creatinine [Mass ratio] 18 mg/mg [facility] CONTINUOUS CARDIAC MONITORIN G STRIPon 09-28-2023 [facility] GLUCOSE POCon 09-28-2023 Glucose [Mass/Vol] 107 mg/dL High 70 - 99 mg/dL [facility] Interpretation and review of laboratory results Abnormal [facility] POC Sample Type CAPBL [facility] Test performed at ad dress of the patient encounter. [facility] MAGNESIUMon 09-28-2023 Magnesium [Mass/Vol] 1.8 mg/dL Normal 1.6-2.6 [facility] Comment on above: Performed By: #### I PB, CA, MGO, CHM7 #### [facility] (DEFAULT) [address] [place] [address] Magnesium [Mass/Vol] 1.8 mg/dL 1.6 - 2.6 mg/dL [facility] No Panel Informationon 09-27 Interpretation and review of laboratory results Normal [facility] PHOSPHATE, INORGANICon 09-27 Phosphorous 3.7 mg/dL Normal 2.2-4.6 [facility] Comment on above: Performed By: #### A 1CB, [id number] #### [facility] (DEFAULT) [address] [place] [address] Phosphate [Mass/Vol] 3.7 mg/dL 2.2 - 4.6 mg/dL [facility] PT,INR,PTTon 09-28-2023 aPTT Coag (Bld) [Time] 30.5 s Normal 24.0-34.3 [facility] Comment on above: Performed By: #### A 1CB, [id number] #### [facility] (DEFAULT) [address] [place] [address] INR Coag (PPP) [Relative time] 1.0 {INR} Normal 0.9-1.1 [facility] Comment on above: Performed By: #### Jonel 1CB, [id number] #### [facility] (DEFAULT) [address] [place] [address] PT Coag (PPP) [Time] 13.0 s Normal 11.9-14.2 [facility] Comment on above: Performed By: #### A 1CB, [id number] #### [facility] (DEFAULT) [address] [place] [address] aPTT Coag (PPP) [Time] 30.5 s [facility] INR Coag (Bld) [Relative time] 1.0 {INR} 0.9 - 1.1 [facility] Interpretation and review of laboratory results Normal [facility] PT Coag (PPP) [Time] 13.0 s [facility] URINE CULTUREOrdered By: Eric Paul on 09-28-2023 Bacteria identified Cx Nom (Unsp spec) Growth [facility] Bacteria identified Cx Nom (Unsp spec) 10,000-50,000 CFU/mL Mixed skin angela [facility] Comment on above: Multiple bacterial m orphotypes present. Suggest appropriate recollection if clinically indicated. [facility] ABORH TYPE RECONFIRMATIONon 09-27-2023 ABO/RH(D) TYPE Positive Normal [facility] Comment on above: Performed By: #### T YPEC #### [facility] (DEFAULT) [address] [place] [address] ABO/RH(D) TYPE Positive [facility] CALCIUMon 09-27-2023 Calcium [Mass/Vol] 9.8 mg/dL Normal 8.6-10.5 [facility] Comment on above: Performed By: #### A 1CB, [id number] #### [facility] (DEFAULT) [address] [place] [address] Calcium [Mass/Vol] 9.8 mg/dL 8.6 - 10. 5 mg/dL [facility] Calcium [Mass/Vol] 9.5 mg/dL Normal 8.6-10.5 [facility] Comment on above: Performed By: #### A 1CB, [id number] #### [facility] (DEFAULT) [address] [place] [address] CBC AND ELECTRONIC DIFFon Basophils (Bld) [#/Vol] 0.04 10*3/uL Normal 0.00-0.09 [facility] Comment on above: Performed By: #### L [id number] #### [facility] (DEFAULT) [address] [place] [address] Basophils/100 WBC (Bld) 0.3 % Normal [facility] Comment on above: Performed By: #### L [id number] #### [facility] (DEFAULT) [address] [address] DIFF STATUS Electronic Differential Normal [facility] Comment on above: Performed By: #### L [id number] #### [facility] (DEFAULT) [address] [place] [address] Eosinophils (Bld) [#/Vol] 0.24 10*3/uL Normal 0.00-0.48 [facility] Comment on above: Performed By: #### L [id number] #### [facility] (DEFAULT) [address] [address] Eosinophils/100 WBC (Bld) 2.1 % Normal [facility] Comment on above: Performed By: #### L [id number] #### [facility] (DEFAULT) [address] [address] Hematocrit (Bld) [Volume fraction] 46.5 % Normal 39.6-48.8 [facility] Comment on above: Performed By: #### L [id number] #### [facility] (DEFAULT) [address] [address] Hemoglobin (Bld) [Mass/Vol] 15.3 g/dL Normal 13.4-16.8 [facility] Comment on above: Performed By: #### L [id number] #### [facility] (DEFAULT) [address] [address] Immature Grans % 0.9 % Normal [facility] Comment on above: Performed By: #### L [id number] #### [facility] (DEFAULT) [address] [address] Immature Grans Absolute 0.10 K/uL High <=0.07 [facility] Comment on above: Performed By: #### L [id number] #### [facility] [facility] [address] [address] Lymphocytes (Bld) [#/Vol] 2.60 10*3/uL Normal 0.83-3.57 [facility] Comment on above: Performed By: #### L [id number] #### [facility] (DEFAULT) [address] [address] Lymphocytes/100 WBC (Bld) 22.3 % Normal [facility] Comment on above: Performed By: #### L [id number] #### [facility] (DEFAULT) [address] [address] MCV (RBC) [Entitic vol] 91.7 fL Normal 79.0-94.5 [facility] Comment on above: Performed By: #### L [id number] #### [facility] (DEFAULT) [address] [address] Mean Cell Hgb 30.2 pg Normal 26.1-33.3 [facility] Comment on above: Performed By: #### L [id number] #### [facility] (DEFAULT) [address] [address] Mean Cell Hgb Conc 32.9 g/dL Normal 31.9-36.5 [facility] Comment on above: Performed By: #### L [id number] #### [facility] (DEFAULT) [address] [address] Monocytes (Bld) [#/Vol] 1.04 10*3/uL High 0.24-0.93 [facility] Comment on above: Performed By: #### L [id number] #### [facility] (DEFAULT) [address] [address] Monocytes/100 WBC (Bld) 8.9 % Normal [facility] Comment on above: Performed By: #### L [id number] #### [facility] (DEFAULT) [address] [address] Nucleated RBC 0.0 /100 WBC Normal <=0.2 [facility] Comment on above: Performed By: #### L [id number] #### [facility] (DEFAULT) [address] [address] Platelet mean volume (Bld) [Entitic vol] 11.5 fL Normal 8.7-12.3 [facility] Comment on above: Performed By: #### L [id number] #### [facility] (DEFAULT) [address] [address] Platelets (Bld) [#/Vol] 254 10*3/uL Normal 146-337 [facility] Comment on above: Performed By: #### L [id number] #### [facility] (DEFAULT) [address] [place] [address] RBC (Bld) [#/Vol] 5.07 10*6/uL Normal 4.38-5.83 [facility] Comment on above: Performed By: #### L [id number] #### [facility] (DEFAULT) [address] [place] [address] RBC Distribution 13.2 % Normal 10.9-14.3 [facility] Comment on above: Performed By: #### L [id number] #### [facility] (DEFAULT) [address] [place] [address] Segs + Bands Auto 65.5 % Normal [facility] Comment on above: Performed By: #### L [id number] #### [facility] (DEFAULT) [address] [place] [address] Segs + Bands,Absolute Auto 7.62 K/uL High 1.57-6.19 [facility] Comment on above: Performed By: #### L [id number] #### [facility] (DEFAULT) [address] [place] [address] WBC (Bld) [#/Vol] 11.64 10*3/uL High 3.73-10.10 [facility] Comment on above: Performed By: #### L [id number] #### [facility] (DEFAULT) [address] [place] [address] Basophils (Bld) [#/Vol] 0.04 10*3/uL 0.00 - 0.09 K/uL [facility] Basophils/100 WBC (Bld) 0.3 % [facility] Differential cell count method Nom (Bld) Electronic Differential [facility] Eosinophils (Bld) [#/Vol] 0.24 10*3/uL 0.00 - 0.48 K/uL [facility] Eosinophils/100 WBC (Bld) 2.1 % [facility] Erythrocyte distribution width (RBC) [Ratio] 13.2 % 10.9 - 14.3 % [facility] Hematocrit (Bld) [Volume fraction] 46.5 % 39.6 - 48.8 % [facility] Hemoglobin (Bld) [Mass/Vol] 15.3 g/dL 13.4 - 16.8 g/dL [facility] Immature granulocytes (Bld) [#/Vol] 0.10 10*3/uL High NINF - 0.07 K/uL [facility] Immature granulocytes/100 WBC (Bld) 0.9 % [facility] Interpretation and review of laboratory results Abnormal [facility] Lymphocytes (Bld) [#/Vol] 2.60 10*3/uL 0.83 - 3.57 K/uL [facility] Lymphocytes/100 WBC (Bld) 22.3 % [facility] MCH (RBC) [Entitic mass] 30.2 pg 26.1 - 33.3 pg [facility] MCHC (RBC) [Mass/Vol] 32.9 g/dL 31.9 - 36.5 g/dL [facility] MCV (RBC) [Entitic vol] 91.7 fL 79.0 - 94.5 fL [facility] Monocytes (Bld) [#/Vol] 1.04 10*3/uL High 0.24 - 0.93 K/uL [facility] Monocytes/100 WBC (Bld) 8.9 % [facility] Neutrophils (Bld) [#/Vol] 7.62 10*3/uL High 1.57 - 6.19 K/uL [facility] Nucleated RBC/100 WBC (Bld) [Ratio] 0.0 % NINF [facility] Platelet mean volume (Bld) [Entitic vol] 11.5 fL 8.7 - 12.3 fL [facility] Platelets (Bld) [#/Vol] 254 10*3/uL 146 - 337 K/uL [facility] RBC (Bld) [#/Vol] 5.07 10*6/uL [facility] Segmented neutrophils/100 WBC (Bld) 65.5 % [facility] WBC (Bld) [#/Vol] 11.64 10*3/uL High 3.73 - 10 .10 K/uL [facility] Basophils (Bld) [#/Vol] 0.04 10*3/uL Normal 0.00-0.09 [facility] Comment on above: Performed By: #### Jonel DEVINE, [id number] #### [facility] (DEFAULT) [address] [place] [address] Basophils/100 WBC (Bld) 0.4 % Normal [facility] Comment on above: Performed By: #### Jonel DEVINE, [id number] #### [facility] (DEFAULT) [address] [place] [address] DIFF STATUS Electronic Differential Normal [facility] Comment on above: Performed By: ###Jim DEVINE, [id number] #### [facility] (DEFAULT) [address] [place] [address] Eosinophils (Bld) [#/Vol] 0.25 10*3/uL Normal 0.00-0.48 [facility] Comment on above: Performed By: ###Jim DEIVNE, [id number] #### [facility] (DEFAULT) [address] [place] [address] Eosinophils/100 WBC (Bld) 2.4 % Normal [facility] Comment on above: Performed By: #### Jonel DEVINE, [id number] #### [facility] (DEFAULT) [address] [place] [address] Hematocrit (Bld) [Volume fraction] 43.8 % Normal 39.6-48.8 [facility] Comment on above: Performed By: #### Jonel DEVINE, [id number] #### [facility] (DEFAULT) [address] [place] [address] Hemoglobin (Bld) [Mass/Vol] 14.5 g/dL Normal 13.4-16.8 [facility] Comment on above: Performed By: #### Jonel DEVINE, [id number] #### [facility] (DEFAULT) [address] [place] [address] Immature Grans % 0.7 % Normal [facility] Comment on above: Performed By: #### A 1CB, [id number] #### [facility] (DEFAULT) [address] [place] [address] Immature Grans Absolute 0.07 K/uL Normal <=0.07 [facility] Comment on above: Performed By: #### A 1CB, [id number] #### [facility] (DEFAULT) [address] [place] [address] Lymphocytes (Bld) [#/Vol] 2.49 10*3/uL Normal 0.83-3.57 [facility] Comment on above: Performed By: #### A 1CB, [id number] #### [facility] (DEFAULT) [address] [place] [address] Lymphocytes/100 WBC (Bld) 24.1 % Normal [facility] Comment on above: Performed By: #### Jonel 1CB, [id number] #### [facility] (DEFAULT) [address] [address] MCV (RBC) [Entitic vol] 92.6 fL Normal 79.0-94.5 [facility] Comment on above: Performed By: #### A 1CB, [id number] #### [facility] (DEFAULT) [address] [place] [address] Mean Cell Hgb 30.7 pg Normal 26.1-33.3 [facility] Comment on above: Performed By: #### A 1CB, [id number] #### [facility] (DEFAULT) [address] [address] Mean Cell Hgb Conc 33.1 g/dL Normal 31.9-36.5 [facility] Comment on above: Performed By: #### A 1CB, [id number] #### [facility] (DEFAULT) [address] [place] [address] Monocytes (Bld) [#/Vol] 0.83 10*3/uL Normal 0.24-0.93 [facility] Comment on above: Performed By: #### Jonel DEVINE, [id number] #### [facility] (DEFAULT) [address] [place] [address] Monocytes/100 WBC (Bld) 8.0 % Normal [facility] Comment on above: Performed By: #### Jonel DEVINE, [id number] #### [facility] (DEFAULT) [address] [place] [address] Nucleated RBC 0.0 /100 WBC Normal <=0.2 [facility] Comment on above: Performed By: #### Jonel DEVINE, [id number] #### [facility] (DEFAULT) [address] [place] [address] Platelet mean volume (Bld) [Entitic vol] 11.5 fL Normal 8.7-12.3 [facility] Comment on above: Performed By: #### Jonel ManeB, [id number] #### [facility] (DEFAULT) [address] [place] [address] Platelets (Bld) [#/Vol] 252 10*3/uL Normal 146-337 [facility] Comment on above: Performed By: #### Jonel 1CB, [id number] #### [facility] (DEFAULT) [address] [place] [address] RBC (Bld) [#/Vol] 4.73 10*6/uL Normal 4.38-5.83 [facility] Comment on above: Performed By: #### Jonel 1CB, [id number] #### [facility] (DEFAULT) [address] [place] [address] RBC Distribution 13.0 % Normal 10.9-14.3 [facility] Comment on above: Performed By: #### Jonel 1CB, [id number] #### [facility] (DEFAULT) [address] [place] [address] Segs + Bands Auto 64.4 % Normal [facility] Comment on above: Performed By: #### Jonel 1CB, [id number] #### [facility] (DEFAULT) [address] [place] [address] Segs + Bands,Absolute Auto 6.65 K/uL High 1.57-6.19 [facility] Comment on above: Performed By: #### Jonel 1CB, [id number] #### [facility] (DEFAULT) [address] [place] [address] WBC (Bld) [#/Vol] 10.33 10*3/uL High 3.73-10.10 [facility] Comment on above: Performed By: #### Jonel DEVINE, [id number] #### [facility] (DEFAULT) [address] [place] [address] CHEM 7 (LYTES,BUN,CREA,GLUC) on 09-27-2023 Anion gap [Moles/Vol] 15 mmol/L Normal 7-17 [facility] Comment on above: Performed By: #### Jonel 1CB, [id number] #### [facility] (DEFAULT) [address] [place] [address] Chloride [Moles/Vol] 102 mmol/L Normal 98-108 [facility] Comment on above: Performed By: #### Jonel 1CB, [id number] #### [facility] (DEFAULT) [address] [place] [address] CO2 [Moles/Vol] 26 mmol/L Normal 21-31 [facility] Comment on above: Performed By: #### Jonel 1CB, [id number] #### [facility] (DEFAULT) [address] [place] [address] Creatinine [Mass/Vol] 0.93 mg/dL Normal 0.70-1.30 [facility] Comment on above: Performed By: #### Jonel 1CB, [id number] #### [facility] (DEFAULT) [address] [place] [address] eGFR, CKD-EPI, Male > Normal >=60 [facility] Comment on above: Result Comment: Repo rted eGFR is based on the CKD-EPI 2020 equation using creatinine, age, and sex. Performed By: #### Jonel DEVINE, [id number] #### [facility] (DEFAULT) [address] [place] [address] Glucose [Mass/Vol] 96 mg/dL Normal 70-99 [facility] Comment on above: Performed By: #### Jonel DEVINE, [id number] #### [facility] (DEFAULT) [address] [place] [address] Osmolality [Osmolality] 292 mosm/kg Normal 278-305 [facility] Comment on above: Performed By: #### Jonel DEVINE, [id number] #### [facility] (DEFAULT) [address] [place] [address] Potassium [Moles/Vol] 4.5 mmol/L Normal 3.5-5.0 [facility] Comment on above: Performed By: #### Jonel DEVINE, [id number] #### [facility] (DEFAULT) [address] [place] [address] Sodium [Moles/Vol] 138 mmol/L Normal 135-145 [facility] Comment on above: Performed By: #### Jonel DEVINE, [id number] #### [facility] (DEFAULT) [address] [place] [address] Urea nitrogen [Mass/Vol] 18 mg/dL Normal 7-25 [facility] Comment on above: Performed By: #### Jonel DEVINE, [id number] #### [facility] (DEFAULT) [address] [place] [address] Urea nitrogen/Creatinine [Mass ratio] 19 mg/mg Normal [facility] Comment on above: Performed By: #### Jonel ManeB, [id number] #### [facility] (DEFAULT) [address] [place] [address] Anion gap [Moles/Vol] 15 mmol/L 7 - 17 mmol/L [facility] Chloride [Moles/Vol] 102 mmol/L 98 - 108 mmol/L [facility] CO2 [Moles/Vol] 26 mmol/L 21 - 31 mmol/L [facility] Creatinine [Mass/Vol] 0.93 mg/dL 0.70 - 1.30 mg/dL [facility] eGFR, CKD-EPI, Male - PINF [facility] Comment on above: Reported eGFR is bas ed on the CKD-EPI 2020 equation using creatinine, age, and sex. Glucose [Mass/Vol] 96 mg/dL 70 - 99 mg/dL [facility] Osmolality Calc [Osmolality] 292 [facility] Potassium [Moles/Vol] 4.5 mmol/L 3.5 - 5.0 mmol/L [facility] Sodium [Moles/Vol] 138 mmol/L 135 - 145 mmol/L [facility] Urea nitrogen [Mass/Vol] 18 mg/dL 7 - 25 mg/dL [facility] Urea nitrogen/Creatinine [Mass ratio] 19 mg/mg [facility] CHM 7 - EDon 09-27-2023 Anion gap [Moles/Vol] 12 mmol/L Normal 7-17 [facility] Comment on above: Performed By: #### Jonel 1CB, [id number] #### [facility] (DEFAULT) [address] [address] Chloride [Moles/Vol] 103 mmol/L Normal 98-108 [facility] Comment on above: Performed By: ###Jim Remy 1CAntonio, [id number] #### [facility] (DEFAULT) [address] [place] [address] CO2 [Moles/Vol] 24 mmol/L Normal 21-31 [facility] Comment on above: Performed By: ###Jim Remy 1CB, [id number] #### [facility] (DEFAULT) [address] [place] [address] Creatinine [Mass/Vol] 0.88 mg/dL Normal 0.70-1.30 [facility] Comment on above: Performed By: #### A 1CB, [id number] #### [facility] (DEFAULT) [address] [place] [address] 11889 eGFR, CKD-EPI, Male > Normal >=60 [facility] Comment on above: Result Comment: Repo rted eGFR is based on the CKD-EPI 2020 equation using creatinine, age, and sex. Performed By: #### Jonel 1CB, [id number] #### [facility] (DEFAULT) [address] [place] [address] Glucose [Mass/Vol] 97 mg/dL Normal 70-99 [facility] Comment on above: Performed By: #### Jonel 1CB, [id number] #### [facility] (DEFAULT) [address] [place] [address] Osmolality [Osmolality] 285 mosm/kg Normal 278-305 [facility] Comment on above: Performed By: #### Jonel 1CB, [id number] #### [facility] (DEFAULT) [address] [place] [address] Potassium [Moles/Vol] 4.1 mmol/L Normal 3.5-5.0 [facility] Comment on above: Performed By: #### Jonel 1CB, [id number] #### [facility] (DEFAULT) [address] [place] [address] Sodium [Moles/Vol] 135 mmol/L Normal 135-145 [facility] Comment on above: Performed By: #### Jonel 1CB, [id number] #### [facility] (DEFAULT) [address] [place] [address] Urea nitrogen [Mass/Vol] 18 mg/dL Normal 7-25 [facility] Comment on above: Performed By: #### Jonel 1CB, [id number] #### [facility] (DEFAULT) [address] [place] [address]341 Urea nitrogen/Creatinine [Mass ratio] 20 mg/mg Normal [facility] Comment on above: Performed By: #### Jonel 1CB, [id number] #### [facility] (DEFAULT) [address] [place] [address] CONTINUOUS CARDIAC MONITORIN G STRIPOrdered By: Unassigned Pacs on 09-27-2023 [facility] Work Phone: CT HEAD WITHOUT CONTRASTon 0 [...] paramedian aspect of the cerebellar vermis. Normal [facility] CT Head WO contraston 2023 IMPRESSION: [...] right paramedian aspect of the cerebellar vermis. [facility] Radiology Study observation (narrative) [facility] CT Head WO contrastOrdered B y: Raphael Quan on 09-27-2023 [facility] Work Phone: CT STROKE HEAD-STROKE ALERT [...] have reviewed and approved this report. Normal [facility] EXTRA MICROon 09-27-2023 [facility] HEMOGLOBIN A1Con 09-27-2023 Average glucose Estimated from glycated hemoglobin (Bld) [Mass/Vol] 111 mg/dL [facility] HbA1c (Bld) [Mass fraction] 5.5 % 4.7 - 5.6 % [facility] Glucose [Mass/Vol] 111 mg/dL Normal [facility] Comment on above: Performed By: #### Jonel 1CB, [id number] #### [facility] (DEFAULT) [address] [place] [address] Hemoglobin A1C HPLC 5.5 % Normal 4.7-5.6 [facility] Comment on above: Performed By: #### A 1CB, [id number] #### [facility] (DEFAULT) [address] [place] [address] HEPATIC FUNCTION PANELon Albumin [Mass/Vol] 4.4 g/dL Normal 3.5-5.0 [facility] Comment on above: Performed By: #### Jonel DEVINE, [id number] #### [facility] (DEFAULT) [address] [place] [address] ALP [Catalytic activity/Vol] 77 U/L Normal 32-126 [facility] Comment on above: Performed By: #### Jonel 1CB, [id number] #### [facility] (DEFAULT) [address] [place] [address] 51865 ALT [Catalytic activity/Vol] 30 U/L Normal 10-52 [facility] Comment on above: Performed By: #### Jonel 1CB, [id number] #### [facility] (DEFAULT) [address] [place] [address] 51235 AST [Catalytic activity/Vol] 24 U/L Normal 10-39 [facility] Comment on above: Performed By: #### Jonel 1CB, [id number] #### [facility] (DEFAULT) [address] [place] [address]1451 Bilirubin [Mass/Vol] 0.6 mg/dL Normal <1.5 [facility] Comment on above: Performed By: #### Jonel 1CB, [id number] #### [facility] (DEFAULT) [address] [place] [address]645 Bilirubin.indirect [Mass/Vol] 0.1 mg/dL Normal <0.3 [facility] Comment on above: Performed By: #### A 1CB, [id number] #### [facility] (DEFAULT) [address] [place] [address] Protein [Mass/Vol] 7.5 g/dL Normal 6.4-8.3 [facility] Comment on above: Performed By: #### A 1CB, [id number] #### [facility] (DEFAULT) [address] [place] [address] HIGH SENSITIVITY TROPONIN I - SINGLE ORDERon 09-27-2023 hs-Troponin I 3 ng/L Normal <53 [facility] Comment on above: Order Comment: Acute Coronary Syndrome (ACS): Initial Evaluation and Management:[email or web address] Performed By: #### Jonel 1CB, [id number] #### [facility] (DEFAULT) [address] [place] [address] LIPID PANEL WITH REFLEX TO Ashlyn ENRIQUE LDLon 09-27-2023 Cholesterol [Mass/Vol] 195 mg/dL NINF - 200 mg/dL [facility] Comment on above: [<200 mg/dL: Desirab le] [200-239 mg/dL: Borderline High] [>239 mg/dL: High] Cholesterol in HDL [Mass/Vol] 41 mg/dL 40 - PINF mg/dL [facility] Comment on above: [<40 mg/dL: Low (Hig h Risk)] [>59 mg/dL: High (Low Risk)] Cholesterol in LDL [Mass/Vol] 129 mg/dL High 0 - 99 mg/dL [facility] Comment on above: [<100 mg/dL: Optimal ] [100-129 mg/dL: Near Optimal] [130-159 mg/dL: Borderline High] [160-189 mg/dL: High] [>189 mg/dL: Very High] Cholesterol non HDL [Mass/Vol] 154 mg/dL High NINF - 130 mg/dL [facility] Cholesterol.total/C holesterol in HDL [Mass ratio] 4.8 {ratio} High NINF - 4.5 [facility] Interpretation and review of laboratory results Abnormal [facility] Triglyceride [Mass/Vol] 124 mg/dL NINF - 150 mg/dL [facility] Comment on above: [<150 mg/dL: Desirab le] [150-199 mg/dL: Borderline] [200-499 mg/dL: High] [>500 mg/dL: Very High] [facility] Calculated LDL Cholesterol 129 mg/dL High 0-99 [facility] Comment on above: Result Comment: [<10 0 mg/dL: Optimal] [100-129 mg/dL: Near Optimal] [130-159 mg/dL: Borderline High] [160-189 mg/dL: High] [>189 mg/dL: Very High] Performed By: #### Jonel DEVINE, [id number] #### [facility] (DEFAULT) [address] [address] Cholesterol [Mass/Vol] 195 mg/dL Normal <200 [facility] Comment on above: Result Comment: [<20 0 mg/dL: Desirable] [200-239 mg/dL: Borderline High] [>239 mg/dL: High] Performed By: #### Jonel DEVINE, [id number] #### [facility] (DEFAULT) [address] [place] [address]39 Cholesterol in HDL [Mass/Vol] 41 mg/dL Normal >=40 [facility] Comment on above: Result Comment: [<40 mg/dL: Low (High Risk)] [>59 mg/dL: High (Low Risk)] Performed By: ###Jim DEVINE, [id number] #### [facility] (DEFAULT) [address] [place] [address] 69539 Non HDL Cholesterol 154 mg/dL High <130 [facility] Comment on above: Performed By: ###Jim ManeB, [id number] #### [facility] (DEFAULT) [address] [address] Total Cholesterol/HDL Ratio 4.8 High <4.5 [facility] Comment on above: Performed By: #### Jonel 1CB, [id number] #### [facility] (DEFAULT) [address] [address] Triglyceride [Mass/Vol] 124 mg/dL Normal <150 [facility] Comment on above: Result Comment: [<15 0 mg/dL: Desirable] [150-199 mg/dL: Borderline] [200-499 mg/dL: High] [>500 mg/dL: Very High] Performed By: #### A 1CB, [id number] #### [facility] (DEFAULT) [address] [address] MAGNESIUMon 09-27-2023 Magnesium [Mass/Vol] 1.9 mg/dL Normal 1.6-2.6 [facility] Comment on above: Performed By: #### Jonel 1CB, [id number] #### [facility] (DEFAULT) [address] [address] Magnesium [Mass/Vol] 1.9 mg/dL 1.6 - 2.6 mg/dL [facility] Magnesium [Mass/Vol] 1.9 mg/dL Normal 1.6-2.6 [facility] Comment on above: Performed By: #### Jonel 1CB, [id number] #### [facility] (DEFAULT) [address] [address] MR Brain WO and W contrast I Von 09-27-2023 Addendum by Fab Wilks MD on 09/27/2023 3:18 PM EST ADDENDUM #1 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 [facility] Revised impression: 1. Developmental venous anomaly [...] No evidence of mass, hydrocephalus, or infarct. [facility] Radiology Study observation (narrative) [facility] MR Brain WO and W contrast I VOrdered By: Fab Wilks on 09-27-2023 [facility] MRI BRAIN WITH AND WITHOUT C [...] evidence of mass, hydrocephalus, or infarct. Normal [facility] No Panel Informationon 09-26 Interpretation and review of laboratory results Normal [facility] PHOSPHATE, INORGANICon 09-26 Phosphorous 3.2 mg/dL Normal 2.2-4.6 [facility] Comment on above: Performed By: #### A 1CB, [id number] #### [facility] (DEFAULT) [address] [address] Phosphate [Mass/Vol] 3.2 mg/dL 2.2 - 4.6 mg/dL [facility] Phosphorous 3.4 mg/dL Normal 2.2-4.6 [facility] Comment on above: Performed By: #### A 1CB, [id number] #### [facility] (DEFAULT) [address] [place] [address] 96490 PT,INR,PTTon 09-27-2023 aPTT Coag (Bld) [Time] 31.4 s Normal 24.0-34.3 [facility] Comment on above: Performed By: #### A 1CB, [id number] #### [facility] (DEFAULT) [address] [place] [address] 67073 INR Coag (PPP) [Relative time] 1.0 {INR} Normal 0.9-1.1 [facility] Comment on above: Performed By: #### A 1CB, [id number] #### [facility] (DEFAULT) [address] [place] [address] 76062 PT Coag (PPP) [Time] 12.6 s Normal 11.9-14.2 [facility] Comment on above: Performed By: #### A 1CB, [id number] #### [facility] (DEFAULT) [address] [place] [address] 81084 aPTT Coag (PPP) [Time] 31.4 s [facility] INR Coag (Bld) [Relative time] 1.0 {INR} 0.9 - 1.1 [facility] Interpretation and review of laboratory results Normal [facility] PT Coag (PPP) [Time] 12.6 s [facility] PTINR-STROKEon 09-27-2023 INR Coag (PPP) [Relative time] 1.0 {INR} Normal 0.9-1.1 [facility] Comment on above: Performed By: #### A 1CB, [id number] #### [facility] (DEFAULT) [address] [place] [address] [id number] PT Coag (PPP) [Time] 12.7 s Normal 11.9-14.2 [facility] Comment on above: Performed By: #### A 1CB, [id number] #### [facility] (DEFAULT) [address] [place] [address] 27995 PTTon 09-27-2023 aPTT Coag (Bld) [Time] 31.2 s Normal 24.0-34.3 [facility] Comment on above: Performed By: #### A 1CB, [id number] #### [facility] (DEFAULT) [address] [place] [address] 40293 TYPE AND SCREENon 09-27-2023 ABO/RH(D) TYPE Positive Normal [facility] Comment on above: Performed By: #### A 1CB, [id number] #### [facility] (DEFAULT) [address] [place] [address] 39558 ABO/RH(D) TYPE Positive [facility] URINALYSIS REFLEX TO CULTURE PERFORMABLEon 09-27-2023 Appearance (U) Clear Normal Clear [facility] Comment on above: Order Comment: For i ndwelling catheters, specimen collection is acceptable on catheter day 1 and 2 only. ? Performed By: #### U [id number] #### [facility] (DEFAULT) [address] [place] [address] 67378 Bacteria ABSENT Normal ABSENT [facility] Comment on above: Order Comment: For i ndwelling catheters, specimen collection is acceptable on catheter day 1 and 2 only. ? Performed By: #### U [id number] #### [facility] (DEFAULT) [address] [place] [address] 62774 Blood Urine Negative Normal Negative [facility] Comment on above: Order Comment: For i ndwelling catheters, specimen collection is acceptable on catheter day 1 and 2 only. ? Performed By: #### U [id number] #### [facility] (DEFAULT) [address] [place] [address] 05646 Color (U) Yellow Normal Yellow [facility] Comment on above: Order Comment: For i ndwelling catheters, specimen collection is acceptable on catheter day 1 and 2 only. ? Performed By: #### U [id number] #### [facility] (DEFAULT) [address] [place] [address] 22108 Glucose Ql (U) Negative Normal Negative [facility] Comment on above: Order Comment: For i ndwelling catheters, specimen collection is acceptable on catheter day 1 and 2 only. ? Performed By: #### U [id number] #### [facility] (DEFAULT) [address] [place] [address] 68470 Ketones Ql (U) Negative Normal Negative [facility] Comment on above: Order Comment: For i ndwelling catheters, specimen collection is acceptable on catheter day 1 and 2 only. ? Performed By: #### U [id number] #### [facility] (DEFAULT) [address] [place] [address] 00674 Leukocyte esterase Test strip Ql (U) Trace Abnormal Negative [facility] Comment on above: Order Comment: For i ndwelling catheters, specimen collection is acceptable on catheter day 1 and 2 only. ? Performed By: #### U [id number] #### [facility] (DEFAULT) [address] [place] [address] 31716 Nitrites Urine Negative Normal Negative [facility] Comment on above: Order Comment: For i ndwelling catheters, specimen collection is acceptable on catheter day 1 and 2 only. ? Performed By: #### U [id number] #### [facility] (DEFAULT) [address] [address] pH (U) 6.5 [pH] Normal 5.0-7.0 [facility] Comment on above: Order Comment: For i ndwelling catheters, specimen collection is acceptable on catheter day 1 and 2 only. ? Performed By: #### U [id number] #### [facility] (DEFAULT) [address] [place] [address] 54270 Protein Urine Trace Abnormal Negative [facility] Comment on above: Order Comment: For i ndwelling catheters, specimen collection is acceptable on catheter day 1 and 2 only. ? Performed By: #### U [id number] #### [facility] (DEFAULT) [address] [place] [address] 26342 RBC Urine 0-2 Normal 0-2 [facility] Comment on above: Order Comment: For i ndwelling catheters, specimen collection is acceptable on catheter day 1 and 2 only. ? Performed By: #### U [id number] #### [facility] (DEFAULT) [address] [place] [address] 26294 Specific [place] Urine > High 1.001-1.035 [facility] Comment on above: Order Comment: For i ndwelling catheters, specimen collection is acceptable on catheter day 1 and 2 only. ? Performed By: #### U [id number] #### [facility] (DEFAULT) [address] [place] [address] 52362 Squamous/Epithelial Cells 0-2/hpf Normal 0-2/hpf, 3-5/hpf = 1+ [facility] Comment on above: Order Comment: For i ndwelling catheters, specimen collection is acceptable on catheter day 1 and 2 only. ? Performed By: #### U [id number] #### [facility] (DEFAULT) [address] [place] [address] 43676 Urobilinogen Urine 1.0 E.U./dL Normal 0.2 E.U/d L, 1.0 E.U/dL [facility] Comment on above: Order Comment: For i ndwelling catheters, specimen collection is acceptable on catheter day 1 and 2 only. ? Performed By: #### U [id number] #### [facility] (DEFAULT) [address] [place] [address] 89541 WBC LM.HPF (Urine sed) [#/Area] /[HPF] Abnormal 0 - 5 [facility] Comment on above: Order Comment: For i ndwelling catheters, specimen collection is acceptable on catheter day 1 and 2 only. ? Performed By: #### U [id number] #### [facility] (DEFAULT) [address] [place] [address] 03074 Appearance (U) Clear Clear [facility] Bacteria LM Ql (Urine sed) ABSENT ABSENT [facility] Color (U) Yellow Yellow [facility] Epithelial cells.squamous LM Ql (Urine sed) 0-2/hpf 0-2/hpf, 3-5/hpf = 1+ [facility] Glucose Test strip (U) [Mass/Vol] Negative Negative [facility] Interpretation and review of laboratory results Abnormal [facility] Ketones (U) [Mass/Vol] Negative Negative [facility] Leukocyte esterase Test strip Ql (U) Trace Abnormal Negative [facility] Nitrite Ql (U) Negative Negative [facility] pH (U) 6.5 [pH] 5.0 - 7.0 [facility] Protein (U) [Mass/Vol] Trace Abnormal Negative [facility] RBC (U) [#/Vol] Negative Negative [facility] RBC LM.HPF (Urine sed) [#/Area] 0-2 [facility] Specific gravity (U) [Rel density] High 1.001 - 1.035 [facility] Urobilinogen (U) [Mass/Vol] 1.0 E.U./dL 0.2 E.U/dL, 1.0 E.U/dL [facility] WBC LM.HPF (Urine sed) [#/Area] /[HPF] Abnormal [facility] URINE CULTUREon 09-27-2023 Bacteria identified Cx Nom (U) Normal [facility] Comment on above: Order Comment: For [...] indicated. Performed By: #### U R #### [facility] (DEFAULT) [address] [place] [address] 96319 CALCIUMon 09-26-2023 Calcium [Mass/Vol] 9.5 mg/dL 8.6 - 10. 5 mg/dL [facility] CBC AND ELECTRONIC DIFFon Basophils (Bld) [#/Vol] 0.04 10*3/uL 0.00 - 0.09 K/uL [facility] Basophils/100 WBC (Bld) 0.4 % [facility] Differential cell count method Nom (Bld) Electronic Differential [facility] Eosinophils (Bld) [#/Vol] 0.25 10*3/uL 0.00 - 0.48 K/uL [facility] Eosinophils/100 WBC (Bld) 2.4 % [facility] Erythrocyte distribution width (RBC) [Ratio] 13.0 % 10.9 - 14.3 % [facility] Hematocrit (Bld) [Volume fraction] 43.8 % 39.6 - 48.8 % [facility] Hemoglobin (Bld) [Mass/Vol] 14.5 g/dL 13.4 - 16.8 g/dL [facility] Immature granulocytes (Bld) [#/Vol] 0.07 10*3/uL NINF - 0.07 K/uL [facility] Immature granulocytes/100 WBC (Bld) 0.7 % [facility] Interpretation and review of laboratory results Abnormal [facility] Lymphocytes (Bld) [#/Vol] 2.49 10*3/uL 0.83 - 3.57 K/uL [facility] Lymphocytes/100 WBC (Bld) 24.1 % [facility] MCH (RBC) [Entitic mass] 30.7 pg 26.1 - 33.3 pg [facility] MCHC (RBC) [Mass/Vol] 33.1 g/dL 31.9 - 36.5 g/dL [facility] MCV (RBC) [Entitic vol] 92.6 fL 79.0 - 94.5 fL [facility] Monocytes (Bld) [#/Vol] 0.83 10*3/uL 0.24 - 0.93 K/uL [facility] Monocytes/100 WBC (Bld) 8.0 % [facility] Neutrophils (Bld) [#/Vol] 6.65 10*3/uL High 1.57 - 6.19 K/uL [facility] Nucleated RBC/100 WBC (Bld) [Ratio] 0.0 % NINF [facility] Platelet mean volume (Bld) [Entitic vol] 11.5 fL 8.7 - 12.3 fL [facility] Platelets (Bld) [#/Vol] 252 10*3/uL 146 - 337 K/uL [facility] RBC (Bld) [#/Vol] 4.73 10*6/uL [facility] Segmented neutrophils/100 WBC (Bld) 64.4 % [facility] WBC (Bld) [#/Vol] 10.33 10*3/uL High 3.73 - 10 .10 K/uL [facility] CHM 7 - EDon 09-26-2023 Anion gap [Moles/Vol] 12 mmol/L 7 - 17 mmol/L [facility] Chloride [Moles/Vol] 103 mmol/L 98 - 108 mmol/L [facility] CO2 [Moles/Vol] 24 mmol/L 21 - 31 mmol/L [facility] Creatinine [Mass/Vol] 0.88 mg/dL 0.70 - 1.30 mg/dL [facility] eGFR, CKD-EPI, Male - PINF [facility] Comment on above: Reported eGFR is bas ed on the CKD-EPI 2020 equation using creatinine, age, and sex. Glucose [Mass/Vol] 97 mg/dL 70 - 99 mg/dL [facility] Osmolality Calc [Osmolality] 285 [facility] Potassium [Moles/Vol] 4.1 mmol/L 3.5 - 5.0 mmol/L [facility] Sodium [Moles/Vol] 135 mmol/L 135 - 145 mmol/L [facility] Urea nitrogen [Mass/Vol] 18 mg/dL 7 - 25 mg/dL [facility] Urea nitrogen/Creatinine [Mass ratio] 20 mg/mg [facility] CT Head limitedon 09-26-2023 IMPRESSION: 1. [...] I have reviewed and approved this report. [facility] Radiology Study observation (narrative) [facility] CT Head limitedOrdered By: Marilyn Soares on 09-26-2023 [facility] Work Phone: GLUCOSE POCon 09-26-2023 Glucose [Mass/Vol] 87 mg/dL 70 - 99 mg/dL [facility] POC Sample Type CAPBL [facility] Test performed at ad dress of the patient encounter. [facility] HEPATIC FUNCTION PANELon Albumin [Mass/Vol] 4.4 g/dL 3.5 - 5.0 g/dL [facility] ALP [Catalytic activity/Vol] 77 U/L 32 - 126 U/L [facility] ALT [Catalytic activity/Vol] 30 U/L 10 - 52 U/L [facility] AST [Catalytic activity/Vol] 24 U/L 10 - 39 U/L [facility] Bilirubin [Mass/Vol] 0.6 mg/dL NINF - 1.5 mg/dL [facility] Bilirubin.direct [Mass/Vol] 0.1 mg/dL NINF - 0.3 mg/dL [facility] Protein [Mass/Vol] 7.5 g/dL 6.4 - 8.3 g/dL [facility] HIGH SENSITIVITY TROPONIN I - SINGLE ORDERon 09-26-2023 Interpretation and review of laboratory results Normal [facility] Troponin I.cardiac High sensitivity method [Mass/Vol] 3 ng/L NINF - 53 ng/L [facility] MAGNESIUMon 09-26-2023 Magnesium [Mass/Vol] 1.9 mg/dL 1.6 - 2.6 mg/dL [facility] No Panel Informationon 09-25 Interpretation and review of laboratory results Normal [facility] PHOSPHATE, INORGANICon 09-25 Phosphate [Mass/Vol] 3.4 mg/dL 2.2 - 4.6 mg/dL [facility] PTINR-STROKEon 09-26-2023 INR Coag (Bld) [Relative time] 1.0 {INR} 0.9 - 1.1 [facility] PT Coag (PPP) [Time] 12.7 s [facility] PTTon 09-26-2023 aPTT Coag (PPP) [Time] 31.2 s [facility] Interpretation and review of laboratory results Normal [facility] CBC W Auto Differential pane l (Bld)on 09-14-2023 Basophils (Bld) [#/Vol] 0.03 10*3/uL <0.11 k/uL [facility] Basophils/100 WBC (Bld) 0.3 % [facility] Differential cell count method Nom (Bld) Auto [facility] Eosinophils (Bld) [#/Vol] 0.18 10*3/uL <0.46 k/uL [facility] Eosinophils/100 WBC (Bld) 1.7 % [facility] Erythrocyte distribution width (RBC) [Ratio] 13.0 % 11.5 - 15.0 % [facility] Hematocrit (Bld) [Volume fraction] 46.0 % 39.0 - 51.0 % [facility] Hemoglobin (Bld) [Mass/Vol] 15.0 g/dL 13.0 - 17.0 g/dL [facility] Immature granulocytes (Bld) [#/Vol] 0.05 10*3/uL <0.10 k/uL [facility] Immature granulocytes/100 WBC (Bld) 0.5 % [facility] Lymphocytes (Bld) [#/Vol] 2.03 10*3/uL 1.00 - 4.00 k/uL [facility] Lymphocytes/100 WBC (Bld) 19.3 % [facility] MCH (RBC) [Entitic mass] 30.1 pg 26.0 - 34.0 pg [facility] MCHC (RBC) [Mass/Vol] 32.6 g/dL 30.5 - 36.0 g/dL [facility] MCV (RBC) [Entitic vol] 92.4 fL 80.0 - 100.0 fL [facility] Monocytes (Bld) [#/Vol] 0.78 10*3/uL <0.87 k/uL [facility] Monocytes/100 WBC (Bld) 7.4 % [facility] Neutrophils (Bld) [#/Vol] 7.45 10*3/uL 1.45 - 7.50 k/uL [facility] Neutrophils/100 WBC (Bld) 70.8 % [facility] Nucleated RBC (Bld) [#/Vol] <0.01 k/uL [facility] Nucleated RBC/100 WBC (Bld) [Ratio] 0.0 /100 WBC [facility] Platelet mean volume (Bld) [Entitic vol] 12.0 fL 9.0 - 12.7 fL [facility] Platelets (Bld) [#/Vol] 262 10*3/uL 150 - 400 k/uL [facility] RBC (Bld) [#/Vol] 4.98 10*6/uL 4.20 - 6.0 0 m/uL [facility] WBC (Bld) [#/Vol] 10.52 10*3/uL 3.70 - 11 .00 k/uL [facility] PSA SerPl-mCncon 09-12-2023 Prostate specific Ag [Mass/Vol] 2.01 ng/mL Normal <2.60 [facility] Comment on above: Order Comment: Speci men Type: BLOOD SPECIMEN Ordering Facility: [facility] Address: [address] [place] [address] Result Comment: Tota l PSA test methodology used is the Electrochemiluminescence Immunoassay by [employer]. Total PSA values by differing methodologies cannot be interchanged. Performed By: #### 2 [id number] #### [facility] CLIA [id number] [address] [place] [address] [place] [address] [place] XR Chest PA and Lateralon IMPRESSION: No acute findings in the chest. Operations Inspector: MARTIN Transcribe Date/Time: Jul 31 2023 1:42P Dictated by : ADA TAYLOR MD This examination was interpreted and the report reviewed and electronically signed by: ADA TAYLOR MD on Jul 31 2023 1:46PM [facility] DIVISION OF RADIOLOGY * * *Final [...] Lines/tubes/devices: None visualized. DIVISION OF RADIOLOGY Provider, [facility] Jermaine Thomas - 07/31/2023 * * *Final [...] IMPRESSION: No acute findings in the chest. Operations Inspector: PSCB Transcribe Date/Time: Jul 31 2023 1:42P Dictated by : ADA TAYLOR MD This examination was interpreted and the report reviewed and electronically signed by: ADA TAYLOR MD on Jul 31 2023 1:46PM EST [facility] Radiology Study observation (narrative) [facility] XR Chest PA and LateralOrder ed By: Ccf Provider on 07-31-2023 [facility] UA DIP, URINE (POC)on 2022 BILIRUBIN UA (POCT) Negative Negative [facility] CLARITY UA (POCT) Cloudy [facility] COLOR UA (POCT) Yellow [facility] GLUCOSE UA (POCT) Negative Negative mg/dL [facility] Hemoglobin Ql (U) Small Abnormal Negative [facility] KETONE UA (POCT) Negative Negative mg/dL [facility] LEUKOCYTES UA (POCT) Small Abnormal Negative [facility] NITRITE UA (POCT) Negative Negative [facility] PH UA (POCT) 7.0 4.5 - 8.0 [facility] Protein Ql (U) 30 mg/dL Abnormal Negative mg/dL [facility] SPECIFIC GRAVITY UA (POCT) 1.015 1.005 - 1.030 [facility] UROBILINOGEN UA (POCT) 0.2 E.U./dL Normal E.U./dL [facility] TSH BLDon 06-08-2022 TSH Qn 0.058 m[IU]/L Low 0.270 - 4.200 mIU/L [facility] VITAMIN D 25 HYDROXYon 06-08 25-hydroxyvitamin D3 [Mass/Vol] 28.5 ng/mL Low 31.0 - 80.0 ng/mL [facility] XR PELVIS 1V APon 01-14-2022 [facility] XR HIP BILAT 5V PEL/AP/LAT E [facility] HIPon 03-18-2021 IMPRESSION: No acute osseous findings bilateral hips. Minimal bilateral hip osteoarthritis. Operations Inspector: MARTIN Transcribe Date/Time: Mar 18 2021 2:19P Dictated by : ROB OHARA MD This examination was interpreted and the report reviewed and electronically signed by: ROB OHARA MD on Mar 18 2021 2:20PM [facility] DIVISION OF RADIOLOGY * * *Final [...] lower lumbar spine. DIVISION OF RADIOLOGY Provider, [facility] Jermaine crowley [place] - 03/18/2021 * * *Final Report* * [...] findings bilateral hips. Minimal bilateral hip osteoarthritis. Operations Inspector[facility] Transcribe Date/Time: Mar 18 2021 2:19P Dictated by : ROB OHARA MD This examination was interpreted and the report reviewed and electronically signed by: ROB OHARA MD on Mar 18 2021 2:20PM EST [facility] Radiology Study observation (narrative) [facility] XR HIP BILAT 5V PEL/AP/LAT E ACH HIPOrdered By: Ccf Provider on 03-18-2021 [facility] Basic Panelon 02-11-2019 Creatinine [Mass/Vol] 1.02 mg/dL Normal 0.67-1.17 [facility] Comment on above: Performed By: #### P 8 #### [facility] [address] [place], [place] [address] Anion gap [Moles/Vol] 9 mmol/L Normal 8-16 [facility] Comment on above: Performed By: #### P 8 #### [facility] [address] [place], [place] [address] Calcium [Mass/Vol] 8.6 mg/dL Normal 8.5-10.1 [facility] Comment on above: Performed By: #### P 8 #### [facility] [address] [place], [place] [address] CO2 [Moles/Vol] 29 mmol/L Normal 21-32 [facility] Comment on above: Performed By: #### P 8 #### [facility] [address] [place], [place] [address] Glucose [Mass/Vol] 82 mg/dL Normal 70-99 [facility] Comment on above: Performed By: #### P 8 #### [facility] [address] [place], [place] [address] Urea nitrogen [Mass/Vol] 12 mg/dL Normal 7-18 [facility] Comment on above: Performed By: #### P 8 #### [facility] [address] [place], [place] [address] Chloride [Moles/Vol] 103 mmol/L Normal 98-107 [facility] Comment on above: Performed By: #### P 8 #### [facility] [address] [place], [place] [address] Potassium [Moles/Vol] 4.3 mmol/L Normal 3.5-5.1 [facility] Comment on above: Performed By: #### P 8 #### [facility] [address] [place], [place] [address] Sodium [Moles/Vol] 137 mmol/L Normal 136-145 [facility] Comment on above: Performed By: #### P 8 #### [facility] [address] [place], [place] [address] MDRD GFRon 02-11-2019 GFR/1.73 sq M predicted among non-blacks MDRD (S/P/Bld) [Vol rate/Area] mL/min/{1.73_m2} Normal >60mL/min/1. 73m2 [facility] Comment on above: Result Comment: If t he patient is , multiply the result by 1.210. Performed By: #### G FR #### [place] [address] Hemogramon 02-10-2019 Erythrocyte distribution width (RBC) [Ratio] 14.9 % High 11.6-14.4 [facility] Comment on above: Performed By: #### C BC1 #### [place] [address] Hematocrit (Bld) [Volume fraction] 44.2 % Normal 40.1-51.0 [facility] Comment on above: Performed By: #### C BC1 #### [place] [address] Hemoglobin (Bld) [Mass/Vol] 14.4 g/dL Normal 13.7-17.5 [facility] Comment on above: Performed By: #### C BC1 #### [place] [address] MCH (RBC) [Entitic mass] 30.7 pg Normal 25.7-32.2 [facility] Comment on above: Performed By: #### C BC1 #### [address] [address] MCHC (RBC) [Mass/Vol] 32.6 % Normal 32.3-36.5 [facility] Comment on above: Performed By: #### C BC1 #### [place] [id number] MCV (RBC) [Entitic vol] 94.2 fL Normal 83.2-95.6 [facility] Comment on above: Performed By: #### C BC1 #### [facility] [address] [place], [place] [address] Platelet mean volume (Bld) [Entitic vol] 10.7 fL Normal 8.7-12.0 [facility] Comment on above: Performed By: #### C BC1 #### [facility] [address] [place] [address] Platelets (Bld) [#/Vol] 225 thou/cmm Normal 141-365 [facility] Comment on above: Performed By: #### C BC1 #### [facility] [address] [place] [address] RBC (Bld) [#/Vol] 4.69 mil/cmm Normal 4.63-6.08 [facility] Comment on above: Performed By: #### Lou BC1 #### [facility] [address] [place] [address] RDW SD 51.5 fl High 36.1-45.8 [facility] Comment on above: Performed By: #### C BC1 #### [facility] [address] [place] [address] WBC (Bld) [#/Vol] 10.16 thou/cmm High 4.23-9.07 [facility] [place] Comment on above: Performed By: #### Lou BC1 #### [facility] [address] [place] [address] Vital Signs Date Time Vital Sign Value Performing Clinician Facility 01-17-2025 10:23-0400 Diastolic blood pressure 66 mm[Hg] Ino Esqueda APRN.WRONG ADDRESS CLERK Work Phone: [facility] 01-17-2025 10:23-0400 Heart rate 69 /min Ino Esqueda APRN.CNP Work Phone: [facility] 01-17-2025 10:23-0400 Systolic blood pressure 117 mm[Hg] Ino Esqueda APRN.WRONG ADDRESS CLERK Work Phone: [facility] 01-14-2025 10:26-0400 Body mass index (BMI) [Ratio] 37.05 kg/m2 Ino Esqueda FISHING ROD MARKER.WRONG ADDRESS CLERK Work Phone: [facility] 01-14-2025 10:26-0400 Body weight 101 kg Ino Esqueda FISHING ROD MARKER.WRONG ADDRESS CLERK Work Phone: [facility] 01-14-2025 10:26-0400 Diastolic blood pressure 71 mm[Hg] Ino Esqueda FISHING ROD MARKER.WRONG ADDRESS CLERK Work Phone: [facility] 01-14-2025 10:26-0400 Heart rate 68 /min Ino Esqueda FISHING ROD MARKER.WRONG ADDRESS CLERK Work Phone: [facility] 01-14-2025 10:26-0400 Systolic blood pressure 123 mm[Hg] Ino Esqueda FISHING ROD MARKER.WRONG ADDRESS CLERK Work Phone: [facility] 12-25-2024 13:27-0400 Body mass index (BMI) [Ratio] 36.5 kg/m2 Greyson Swank FISHING ROD MARKER.WRONG ADDRESS CLERK Work Phone: [facility] 12-25-2024 13:27-0400 Body temperature 98.4 [degF] Greyson Swank FISHING ROD MARKER.WRONG ADDRESS CLERK Work Phone: [facility] 12-25-2024 13:27-0400 Body weight 99.5 kg Greyson Swank FISHING ROD MARKER.WRONG ADDRESS CLERK Work Phone: [facility] 12-25-2024 13:27-0400 Diastolic blood pressure 70 mm[Hg] Greyson Swank FISHING ROD MARKER.WRONG ADDRESS CLERK Work Phone: [facility] 12-25-2024 13:27-0400 Heart rate 67 /min Greyson Swank FISHING ROD MARKER.WRONG ADDRESS CLERK Work Phone: [facility] 12-25-2024 13:27-0400 Respiratory rate 20 /min Greyson Swank FISHING ROD MARKER.WRONG ADDRESS CLERK Work Phone: [facility] 12-25-2024 13:27-0400 SaO2% (BldA) [Mass fraction] 98 % Greyson Swank FISHING ROD MARKER.WRONG ADDRESS CLERK Work Phone: [facility] 12-25-2024 13:27-0400 Systolic blood pressure 128 mm[Hg] Greyson Ganesh OAKESWRONG ADDRESS CLERK Work Phone: [facility] 11-05-2024 20:19-0400 Body temperature 98 [degF] Dr. Mathew Cobian MD Work Phone: [facility] 11-05-2024 20:19-0400 Diastolic blood pressure 87 mm[Hg] Dr. Mathew Cobian MD Work Phone: [facility] 11-05-2024 20:19-0400 Heart rate 55 /min Dr. Mathew Cobian MD Work Phone: [phone] [place] [address] 11-05-2024 20:19-0400 Respiratory rate 18 /min Dr. Mathew Cobian MD Work Phone: [phone] [place] [address] 11-05-2024 20:19-0400 SaO2% (BldA) [Mass fraction] 97 % Dr. Mathew Cobian MD Work Phone: [facility] 11-05-2024 20:19-0400 Systolic blood pressure 125 mm[Hg] Dr. Mathew Cobian MD [facility] Phone[facility] [facility] 11-05-2024 18:14-0400 Body height 165.[address] Mathew Cobian MD Work Phone: [facility] 11-05-2024 18:14-0400 Body mass index (BMI) [Ratio] 38.9 kg/m2 Dr. Mathew Cobian MD Work Phone: [facility] 11-05-2024 18:14-0400 Body weight 106.[address] Mathew Cobian MD Work Phone: [facility] 07-25-2024 10:46-0500 Diastolic blood pressure 84 mm[Hg] Mathew Cobian MD Work Phone: [facility] 07-25-2024 10:46-0500 Heart rate 64 /min Mathew Cobian MD Work Phone: [facility] 07-25-2024 10:46-0500 Respiratory rate 18 /min Mathew Cobian MD Work Phone: [facility] 07-25-2024 10:46-0500 Systolic blood pressure 132 mm[Hg] Mathew Cobian MD Work Phone: [facility] 07-22-2024 19:56-0500 Diastolic blood pressure 70 mm[Hg] Dr. Mathew Cobian MD Work Phone: [facility] 07-22-2024 19:56-0500 Heart rate 55 /min Dr. Mathew Cobian MD Work Phone: [facility] 07-22-2024 19:56-0500 Respiratory rate 16 /min Dr. Mathew Cobian MD Work Phone: [facility] 07-22-2024 19:56-0500 SaO2% (BldA) [Mass fraction] 98 % Dr. Mathew Cobian MD Work Phone: [facility] 07-22-2024 19:56-0500 Systolic blood pressure 122 mm[Hg] Dr. Mathew Cobian MD Work Phone: [facility] 07-22-2024 15:33-0500 Body temperature 98 [degF] Dr. Mathew Cobian MD Work Phone: [facility] 07-20-2024 17:20-0500 Diastolic Blood Pressure Non-Invasive 95 mm[Hg] KAE REICHFIELD DO [facility] 07-20-2024 17:20-0500 Heart rate 60 /min KAE REICHFIELD DO [facility] 07-20-2024 17:20-0500 Mean blood pressure 112 mm[Hg] KAE REICHFIELD DO [facility] 07-20-2024 17:20-0500 Respiratory rate 20 /min KAE REICHFIELD DO [facility] 07-20-2024 17:20-0500 Systolic Blood Pressure Non-Invasive 146 mm[Hg] KAE REICHFIELD DO [facility] 07-20-2024 14:33-0500 Body height 165.1 cm KAE REICHFIELD DO [facility] 07-20-2024 14:33-0500 Body temperature 98.06 [degF] KAE REICHFIELD DO [facility] 07-20-2024 14:33-0500 Body weight 100 kg KAE REICHFIELD DO [facility] 07-20-2024 14:33-0500 Diastolic Blood Pressure Non-Invasive 72 mm[Hg] KAE REICHFIELD DO [facility] 07-20-2024 14:33-0500 Heart rate 56 /min KAE REICHFIELD DO [facility] 07-20-2024 14:33-0500 Respiratory rate 20 /min KAE REICHFIELD DO [facility] 07-20-2024 14:33-0500 Systolic Blood Pressure Non-Invasive 127 mm[Hg] KAE REICHFIELD DO [facility] 07-12-2024 10:48-0500 Body mass index (BMI) [Ratio] 36.61 kg/m2 Brian Ahmadi APRN.WRONG ADDRESS CLERK Work Phone: [facility] 07-12-2024 10:48-0500 Body weight 99.79 kg Brian Ahmadi APRN.WRONG ADDRESS CLERK Work Phone: [facility] 07-12-2024 10:48-0500 Diastolic blood pressure 88 mm[Hg] Brian Ahmadi APRN.WRONG ADDRESS CLERK Work Phone: [facility] 07-12-2024 10:48-0500 Heart rate 67 /min Brian Daiana FISHING ROD MARKER.WRONG ADDRESS CLERK Work Phone: [facility] 07-12-2024 10:48-0500 Respiratory rate 20 /min Brian Daiana FISHING ROD MARKER.WRONG ADDRESS CLERK Work Phone: [facility] 07-12-2024 10:48-0500 SaO2% (BldA) [Mass fraction] 98 % Brian Daiana FISHING ROD MARKER.WRONG ADDRESS CLERK Work Phone: [facility] 07-12-2024 10:48-0500 Systolic blood pressure 140 mm[Hg] Brian Daiana FISHING ROD MARKER.WRONG ADDRESS CLERK Work Phone: [facility] 05-22-2024 11:38-0400 Diastolic blood pressure 72 mm[Hg] Jennifer Grayson FISHING ROD MARKER.WRONG ADDRESS CLERK Work Phone: [facility] 05-22-2024 11:38-0400 Heart rate 68 /min Jennifer Grayson FISHING ROD MARKER.WRONG ADDRESS CLERK Work Phone: [facility] 05-22-2024 11:38-0400 SaO2% (BldA) [Mass fraction] 97 % Jennifer Grayson FISHING ROD MARKER.WRONG ADDRESS CLERK Work Phone: [facility] 05-22-2024 11:38-0400 Systolic blood pressure 111 mm[Hg] Jennifer Grayson FISHING ROD MARKER.WRONG ADDRESS CLERK Work Phone: [facility] 05-17-2024 12:45-0400 Body mass index (BMI) [Ratio] 37.35 kg/m2 Prema Moomaw FISHING ROD MARKER.WRONG ADDRESS CLERK Work Phone: [facility] 05-17-2024 12:45-0400 Body temperature 97.5 [degF] Prema Moomaw FISHING ROD MARKER.WRONG ADDRESS CLERK Work Phone: [facility] 05-17-2024 12:45-0400 Body weight 101.8 kg Prema Moomaw FISHING ROD MARKER.WRONG ADDRESS CLERK Work Phone: [facility] 05-17-2024 12:45-0400 Diastolic blood pressure 71 mm[Hg] Prema Moomaw FISHING ROD MARKER.WRONG ADDRESS CLERK Work Phone: [facility] 05-17-2024 12:45-0400 Heart rate 54 /min Prema Moomaw FISHING ROD MARKER.WRONG ADDRESS CLERK Work Phone: [facility] 05-17-2024 12:45-0400 Respiratory rate 20 /min Prema Moomaw FISHING ROD MARKER.WRONG ADDRESS CLERK Work Phone: [facility] 05-17-2024 12:45-0400 SaO2% (BldA) [Mass fraction] 97 % Prema Moomaw FISHING ROD MARKER.WRONG ADDRESS CLERK Work Phone: [facility] 05-17-2024 12:45-0400 Systolic blood pressure 110 mm[Hg] Prema Moomaw FISHING ROD MARKER.WRONG ADDRESS CLERK Work Phone: [facility] 05-13-2024 10:45-0400 Diastolic blood pressure 59 mm[Hg] Gilson Finelli DO Work Phone: [facility] 05-13-2024 10:45-0400 Heart rate 41 /min Gilson Finelli DO Work Phone: [facility] 05-13-2024 10:45-0400 Respiratory rate 11 /min Gilson Finelli DO Work Phone: [facility] 05-13-2024 10:45-0400 SaO2% (BldA) [Mass fraction] 100 % Gilson Finelli DO Work Phone: [facility] 05-13-2024 10:45-0400 Systolic blood pressure 102 mm[Hg] Gilson Finelli DO Work Phone: [facility] 05-13-2024 09:36-0400 Body temperature 97.2 [degF] Gilson Finelli DO Work Phone: [facility] 05-08-2024 12:52-0400 Body mass index (BMI) [Ratio] 37.28 kg/m2 Gilson Finelli DO Work Phone: [facility] 05-08-2024 12:52-0400 Body weight 101.61 kg Gilson Finelli DO Work Phone: [facility] 05-08-2024 12:52-0400 Diastolic blood pressure 64 mm[Hg] Gilson Finelli DO Work Phone: [facility] 05-08-2024 12:52-0400 Heart rate 63 /min Gilson Finelli DO Work Phone: [facility] 05-08-2024 12:52-0400 SaO2% (BldA) [Mass fraction] 95 % Gilson Finelli DO Work Phone: [facility] 05-08-2024 12:52-0400 Systolic blood pressure 101 mm[Hg] Gilson Finelli DO Work Phone: [facility] 05-03-2024 10:34-0400 Body temperature 97.7 [degF] Brian Ahmadi FISHING ROD MARKER.WRONG ADDRESS CLERK Work Phone: [facility] 05-03-2024 10:24-0400 Body mass index (BMI) [Ratio] 36.94 kg/m2 Brian Ahmadi FISHING ROD MARKER.WRONG ADDRESS CLERK Work Phone: [facility] 05-03-2024 10:24-0400 Body weight 100.7 kg Brian Ahmadi FISHING ROD MARKER.WRONG ADDRESS CLERK Work Phone: [facility] 05-03-2024 10:24-0400 Diastolic blood pressure 80 mm[Hg] Brian Ahmadi FISHING ROD MARKER.WRONG ADDRESS CLERK Work Phone: [facility] 05-03-2024 10:24-0400 Heart rate 79 /min Brian Daiana FISHING ROD MARKER.WRONG ADDRESS CLERK Work Phone: [facility] 05-03-2024 10:24-0400 Respiratory rate 20 /min Brian Ahmadi FISHING ROD MARKER.WRONG ADDRESS CLERK Work Phone: [facility] 05-03-2024 10:24-0400 SaO2% (BldA) [Mass fraction] 98 % Brian Ahmadi FISHING ROD MARKER.WRONG ADDRESS CLERK Work Phone: [facility] 05-03-2024 10:24-0400 Systolic blood pressure 120 mm[Hg] Brian Ahmadi FISHING ROD MARKER.WRONG ADDRESS CLERK Work Phone: [facility] 04-30-2024 13:59-0400 Body temperature 97.7 [degF] Brian Ahmadi FISHING ROD MARKER.WRONG ADDRESS CLERK Work Phone: [facility] 04-30-2024 13:17-0400 Body mass index (BMI) [Ratio] 37.77 kg/m2 Biran Ahmadi FISHING ROD MARKER.WRONG ADDRESS CLERK Work Phone: [facility] 04-30-2024 13:17-0400 Body weight 102.97 kg Brian Ahmadi FISHING ROD MARKER.WRONG ADDRESS CLERK Work Phone: [facility] 04-30-2024 13:17-0400 Diastolic blood pressure 76 mm[Hg] Brian Ahmadi FISHING ROD MARKER.WRONG ADDRESS CLERK Work Phone: [facility] 04-30-2024 13:17-0400 Heart rate 64 /min Brian Ahmadi FISHING ROD MARKER.WRONG ADDRESS CLERK Work Phone: [facility] 04-30-2024 13:17-0400 Respiratory rate 16 /min Brian Ahmadi FISHING ROD MARKER.WRONG ADDRESS CLERK Work Phone: [facility] 04-30-2024 13:17-0400 SaO2% (BldA) [Mass fraction] 98 % Brian Ahmadi FISHING ROD MARKER.WRONG ADDRESS CLERK Work Phone: [facility] 04-30-2024 13:17-0400 Systolic blood pressure 114 mm[Hg] Brian Maynardil FISHING ROD MARKER.WRONG ADDRESS CLERK Work Phone: [facility] 04-17-2024 09:38-0400 Body mass index (BMI) [Ratio] 38.37 kg/m2 Gypsy Syed FISHING ROD MARKER.WRONG ADDRESS CLERK Work Phone: [facility] 04-17-2024 09:38-0400 Body weight 104.6 kg Gypsy Syed FISHING ROD MARKER.WRONG ADDRESS CLERK Work Phone: [facility] 04-17-2024 09:38-0400 Diastolic blood pressure 80 mm[Hg] Gypsy Tannhof FISHING ROD MARKER.WRONG ADDRESS CLERK Work Phone: [facility] 04-17-2024 09:38-0400 Heart rate 68 /min Gypsy Meridahof FISHING ROD MARKER.WRONG ADDRESS CLERK Work Phone: [facility] 04-17-2024 09:38-0400 Respiratory rate 16 /min Gypsy Tannhof FISHING ROD MARKER.WRONG ADDRESS CLERK Work Phone: [facility] 04-17-2024 09:38-0400 SaO2% (BldA) [Mass fraction] 97 % Gypsy Meridahof FISHING ROD MARKER.WRONG ADDRESS CLERK Work Phone: [facility] 04-17-2024 09:38-0400 Systolic blood pressure 122 mm[Hg] Gypsy Meridahof FISHING ROD MARKER.WRONG ADDRESS CLERK Work Phone: [facility] 04-12-2024 10:22-0400 Body mass index (BMI) [Ratio] 38.11 kg/m2 Brian Ahmadi FISHING ROD MARKER.WRONG ADDRESS CLERK Work Phone: [facility] 04-12-2024 10:22-0400 Body weight 103.87 kg Brian Ahmadi FISHING ROD MARKER.WRONG ADDRESS CLERK Work Phone: [facility] 04-12-2024 10:22-0400 Diastolic blood pressure 70 mm[Hg] Brian Daiana FISHING ROD MARKER.WRONG ADDRESS CLERK Work Phone: [facility] 04-12-2024 10:22-0400 Heart rate 61 /min Brian Daiana FISHING ROD MARKER.WRONG ADDRESS CLERK Work Phone: [facility] 04-12-2024 10:22-0400 Respiratory rate 16 /min Brian Daiana FISHING ROD MARKER.WRONG ADDRESS CLERK Work Phone: [facility] 04-12-2024 10:22-0400 SaO2% (BldA) [Mass fraction] 98 % Brian Ahmadi FISHING ROD MARKER.WRONG ADDRESS CLERK Work Phone: [facility] 04-12-2024 10:22-0400 Systolic blood pressure 112 mm[Hg] Brian Daiana FISHING ROD MARKER.WRONG ADDRESS CLERK Work Phone: [facility] 03-15-2024 10:23-0400 Diastolic blood pressure 68 mm[Hg] Brian Ahmadi FISHING ROD MARKER.WRONG ADDRESS CLERK Work Phone: [facility] 03-15-2024 10:23-0400 Heart rate 62 /min Brian Ahmadi FISHING ROD MARKER.WRONG ADDRESS CLERK Work Phone: [facility] 03-15-2024 10:23-0400 Respiratory rate 16 /min Brian Ahmadi FISHING ROD MARKER.WRONG ADDRESS CLERK Work Phone: [facility] 03-15-2024 10:23-0400 SaO2% (BldA) [Mass fraction] 95 % Brian Ahmadi FISHING ROD MARKER.WRONG ADDRESS CLERK Work Phone: [facility] 03-15-2024 10:23-0400 Systolic blood pressure 124 mm[Hg] Brian Ahmadi FISHING ROD MARKER.WRONG ADDRESS CLERK Work Phone: [facility] 03-12-2024 11:20-0400 Body height 165.1 cm Raphael Calderon Jr., MD Work Phone: [facility] 03-12-2024 11:20-0400 Body mass index (BMI) [Ratio] 38.11 kg/m2 Raphael Calderon Jr., MD Work Phone: [facility] 03-12-2024 11:20-0400 Body weight 103.87 kg Raphael Calderon Jr., MD Work Phone: [facility] 02-17-2024 11:53-0400 Body mass index (BMI) [Ratio] 38.7 kg/m2 Abbe Adame APRN.WRONG ADDRESS CLERK Work Phone: [facility] 02-17-2024 11:53-0400 Body temperature 96.91 [degF] Abbe Adame APRN.WRONG ADDRESS CLERK Work Phone: [facility] 02-17-2024 11:53-0400 Body weight 105.5 kg Abbe Adame APRN.WRONG ADDRESS CLERK Work Phone: [facility] 02-17-2024 11:53-0400 Diastolic blood pressure 74 mm[Hg] Abbe Adame FISHING ROD MARKER.WRONG ADDRESS CLERK Work Phone: [facility] 02-17-2024 11:53-0400 Heart rate 75 /min Abbe Adame FISHING ROD MARKER.WRONG ADDRESS CLERK Work Phone: [facility] 02-17-2024 11:53-0400 Respiratory rate 21 /min Abbe Adame FISHING ROD MARKER.WRONG ADDRESS CLERK Work Phone: [facility] 02-17-2024 11:53-0400 SaO2% (BldA) [Mass fraction] 98 % Abbe Adame FISHING ROD MARKER.WRONG ADDRESS CLERK Work Phone: [facility] 02-17-2024 11:53-0400 Systolic blood pressure 120 mm[Hg] Abbe Adame FISHING ROD MARKER.WRONG ADDRESS CLERK Work Phone: [facility] 12-14-2023 10:58-0400 Body mass index (BMI) [Ratio] 37.81 kg/m2 Gypsy Syed FISHING ROD MARKER.WRONG ADDRESS CLERK Work Phone: [facility] 12-14-2023 10:58-0400 Body weight 103.06 kg Gypsy Syed FISHING ROD MARKER.WRONG ADDRESS CLERK Work Phone: [facility] 12-14-2023 10:58-0400 Diastolic blood pressure 70 mm[Hg] Gypsy Meridahof FISHING ROD MARKER.WRONG ADDRESS CLERK Work Phone: [facility] 12-14-2023 10:58-0400 Heart rate 63 /min Gypsy Meridahof FISHING ROD MARKER.WRONG ADDRESS CLERK Work Phone: [facility] 12-14-2023 10:58-0400 Respiratory rate 16 /min Gypsy Meridahof FISHING ROD MARKER.WRONG ADDRESS CLERK Work Phone: [facility] 12-14-2023 10:58-0400 SaO2% (BldA) [Mass fraction] 97 % Gypsy Meridahoabilio FISHING ROD MARKER.WRONG ADDRESS CLERK Work Phone: [facility] 12-14-2023 10:58-0400 Systolic blood pressure 118 mm[Hg] Gypsy Meridahof FISHING ROD MARKER.WRONG ADDRESS CLERK Work Phone: [facility] 11-01-2023 14:16-0400 Body temperature 97.39 [degF] Barbara Quarles FISHING ROD MARKER.WRONG ADDRESS CLERK Work Phone: [facility] 11-01-2023 14:16-0400 Body weight 101.1 kg Barbara Quarles FISHING ROD MARKER.WRONG ADDRESS CLERK Work Phone: [facility] 11-01-2023 14:16-0400 Diastolic blood pressure 70 mm[Hg] Barbara Quarles FISHING ROD MARKER.WRONG ADDRESS CLERK Work Phone: [facility] 11-01-2023 14:16-0400 Heart rate 78 /min Barbara Quarles FISHING ROD MARKER.WRONG ADDRESS CLERK Work Phone: [facility] 11-01-2023 14:16-0400 Respiratory rate 21 /min Barbara Quarles FISHING ROD MARKER.WRONG ADDRESS CLERK Work Phone: [facility] 11-01-2023 14:16-0400 SaO2% (BldA) [Mass fraction] 98 % Barbara Quarles FISHING ROD MARKER.WRONG ADDRESS CLERK Work Phone: [facility] 11-01-2023 14:16-0400 Systolic blood pressure 120 mm[Hg] Barbara Quarles FISHING ROD MARKER.WRONG ADDRESS CLERK Work Phone: [facility] 10-17-2023 10:08-0400 Body weight 102.97 kg Mathew Cobian MD Work Phone: [facility] 10-17-2023 10:08-0400 Diastolic blood pressure 72 mm[Hg] Mathew Cobian MD Work Phone: [facility] 10-17-2023 10:08-0400 Heart rate 86 /min Mathew Cobian MD Work Phone: [facility] 10-17-2023 10:08-0400 Respiratory rate 16 /min Mathew Cobian MD Work Phone: [facility] 10-17-2023 10:08-0400 SaO2% (BldA) [Mass fraction] 98 % Mathew Cobian MD Work Phone: [facility] 10-17-2023 10:08-0400 Systolic blood pressure 120 mm[Hg] Mathew Cobian MD Work Phone: [facility] 09-29-2023 11:50-0500 Body temperature 98.4 [degF] Evan Burnham MD Work Phone: [facility] 09-29-2023 11:50-0500 Diastolic blood pressure 64 mm[Hg] Evan Burnham MD Work Phone: [facility] 09-29-2023 11:50-0500 Heart rate 56 /min Evan Burnham MD Work Phone: [facility] 09-29-2023 11:50-0500 Respiratory rate 20 /min Evan Burnham MD Work Phone: [facility] 09-29-2023 11:50-0500 SaO2% (BldA) [Mass fraction] 94 % Evan Burnham MD Work Phone: [facility] 09-29-2023 11:50-0500 Systolic blood pressure 131 mm[Hg] Evan Burnham MD Work Phone: [facility] 09-27-2023 02:14-0500 Body height 165.1 cm Evan Burnham MD Work Phone: [facility] 09-27-2023 02:14-0500 Body mass index (BMI) [Ratio] 35.78 kg/m2 Evan Burnham MD Work Phone: [facility] 09-27-2023 02:14-0500 Body weight 97.52 kg Evan Burnham MD Work Phone: [facility] 09-14-2023 12:20-0500 Body weight 100.25 kg Gypsy Syed APRN.WRONG ADDRESS CLERK Work Phone: [facility] 09-14-2023 12:20-0500 Diastolic blood pressure 68 mm[Hg] Gypsy Tannhof FISHING ROD MARKER.WRONG ADDRESS CLERK Work Phone: [facility] 09-14-2023 12:20-0500 Heart rate 64 /min Gypsy Syed FISHING ROD MARKER.WRONG ADDRESS CLERK Work Phone: [facility] 09-14-2023 12:20-0500 Respiratory rate 16 /min Gypsy Meridahoabilio FISHING ROD MARKER.WRONG ADDRESS CLERK Work Phone: [facility] 09-14-2023 12:20-0500 SaO2% (BldA) [Mass fraction] 97 % Gypsy Meridahof FISHING ROD MARKER.WRONG ADDRESS CLERK Work Phone: [facility] 09-14-2023 12:20-0500 Systolic blood pressure 112 mm[Hg] Gypsy Meridahoabilio FISHING ROD MARKER.WRONG ADDRESS CLERK Work Phone: [facility] 04-12-2023 19:25-0400 Body temperature 99.3 [degF] Abbe Adame APRN.WRONG ADDRESS CLERK Work Phone: [facility] 04-12-2023 19:25-0400 Body weight 105.51 kg Abbe Adame APRN.WRONG ADDRESS CLERK Work Phone: [facility] 04-12-2023 19:25-0400 Diastolic blood pressure 72 mm[Hg] Abbe Adame APRN.WRONG ADDRESS CLERK Work Phone: [facility] 04-12-2023 19:25-0400 Heart rate 85 /min Abbe Adame APRN.WRONG ADDRESS CLERK Work Phone: [facility] 04-12-2023 19:25-0400 Respiratory rate 21 /min Abbe Adame APRN.WRONG ADDRESS CLERK Work Phone: [facility] 04-12-2023 19:25-0400 SaO2% (BldA) [Mass fraction] 98 % Abbe Adame APRN.WRONG ADDRESS CLERK Work Phone: [facility] 04-12-2023 19:25-0400 Systolic blood pressure 114 mm[Hg] Abbe Adame APRN.WRONG ADDRESS CLERK Work Phone: [facility] 12-20-2022 10:16-0400 Body weight 100.61 kg Brian Daiana FISHING ROD MARKER.WRONG ADDRESS CLERK Work Phone: [facility] 12-20-2022 10:16-0400 Diastolic blood pressure 82 mm[Hg] Brian Ahmadi FISHING ROD MARKER.WRONG ADDRESS CLERK Work Phone: [facility] 12-20-2022 10:16-0400 Heart rate 61 /min Brian Ahmadi FISHING ROD MARKER.WRONG ADDRESS CLERK Work Phone: [facility] 12-20-2022 10:16-0400 Respiratory rate 16 /min Brian Ahmadi FISHING ROD MARKER.WRONG ADDRESS CLERK Work Phone: [facility] 12-20-2022 10:16-0400 SaO2% (BldA) [Mass fraction] 96 % Brian Ahmadi FISHING ROD MARKER.WRONG ADDRESS CLERK Work Phone: [facility] 12-20-2022 10:16-0400 Systolic blood pressure 128 mm[Hg] Brian Ahmadi FISHING ROD MARKER.WRONG ADDRESS CLERK Work Phone: [facility] 06-07-2022 14:36-0500 Body weight 97.8 kg Mathew Cobian MD Work Phone: [facility] 06-07-2022 14:36-0500 Diastolic blood pressure 76 mm[Hg] Mathew Cobian MD Work Phone: [facility] 06-07-2022 14:36-0500 Heart rate 72 /min Mathew Cobian MD Work Phone: [facility] 06-07-2022 14:36-0500 Respiratory rate 16 /min Mathew Cobian MD Work Phone: [facility] 06-07-2022 14:36-0500 Systolic blood pressure 124 mm[Hg] Mathew Cobian MD Work Phone: [facility] 02-27-2022 12:26-0400 Body height 165.1 cm [facility] Work Phone: 02-27-2022 12:26-0400 Body mass index (BMI) [Ratio] 35.7 kg/m2 [facility] Work Phone: 02-27-2022 12:26-0400 Body temperature 98.7 [degF] [facility] Work Phone: 02-27-2022 12:26-0400 Body weight 97.52 kg [facility] Work Phone: 02-27-2022 12:26-0400 Diastolic blood pressure 81 mm[Hg] [facility] Work Phone: 02-27-2022 12:26-0400 Heart rate 82 /min [facility] Work Phone: 02-27-2022 12:26-0400 Respiratory rate 18 /min [facility] Work Phone: 02-27-2022 12:26-0400 SaO2% (BldA) [Mass fraction] 98 % [facility] Work Phone: 02-27-2022 12:26-0400 Systolic blood pressure 148 mm[Hg] [facility] Work Phone: 01-14-2022 11:08-0400 Body temperature 97.39 [degF] Hardik Masci DO Work Phone: [facility] 01-14-2022 11:08-0400 Body weight 101.15 kg Hardik Masci DO Work Phone: [facility] 01-14-2022 11:08-0400 Diastolic blood pressure 76 mm[Hg] Hardik Masci DO Work Phone: [facility] 01-14-2022 11:08-0400 Heart rate 68 /min Hardik Masci DO Work Phone: [facility] 01-14-2022 11:08-0400 Systolic blood pressure 124 mm[Hg] Hardik Masci DO Work Phone: [facility] Encounters Encounter Date Encounter Type Care Provider Facility Start: 01-17-2025 End: 01-17-2025 ambulatory Mathew Cobian MD Work Phone: [facility] Comment on above: Rectal Problem Start: 01-17-2025 End: 01-17-2025 Patient encounter procedure Ino Esqueda APRN.WRONG ADDRESS CLERK Work Phone: [facility] Comment on above: Blood in stool (Prim kamille Dx); Diverticulitis; Fatigue, unspecified type; Low energy; Chronic bilateral low back pain with right-sided sciatica Start: 01-14-2025 End: 01-14-2025 Patient encounter procedure Ino Esqueda APRN.WRONG ADDRESS CLERK Work Phone: [facility] Comment on above: Diverticulitis (Prim kamille Dx); Skin tags, multiple acquired Start: 01-14-2025 End: 01-14-2025 ambulatory Yuko Erazo RN NURSE SITE RELIABILITY ENGINEER Comment on above: Medication Question Start: 01-10-2025 End: 01-10-2025 Telephone encounter Mathew Cobian MD Work Phone: [facility] Comment on above: Medication Problem Start: 12-25-2024 End: 12-25-2024 Patient encounter procedure Greyson Ellsworth APRN.WRONG ADDRESS CLERK Work Phone: [facility] Comment on above: Sore throat (Primary Dx); Viral illness; Seasonal allergic rhinitis, unspecified trigger Start: 12-25-2024 End: 12-25-2024 ambulatory Mathew Cobian MD Work Phone: [facility] Comment on above: Sore Throat Start: 12-13-2024 End: 12-13-2024 ambulatory MATHEW COBIAN Facility:[facility] Start: 11-05-2024 End: 11-05-2024 Emergency department patient visit Dr. Mathew Cobian MD Work Phone: -Emergency Department Work Phone: Start: 10-31-2024 End: 11-01-2024 Follow-up encounter [facility] Comment on above: Results Start: 10-28-2024 ambulatory RAPHAEL CALDERON JR Facility:[facility] Start: 10-28-2024 End: 10-28-2024 Subsequent hospital visit by physician Mri [facility] (I-Stat/Lg Bore/3t) [facility] Comment on above: Prostate cancer (HCC ) [C61] Start: 09-10-2024 End: 09-10-2024 Telephone encounter Raphael Calderon MD Work Phone: Urology Comment on above: Appointment Start: 08-26-2024 End: 08-26-2024 ambulatory MATHEW COBIAN Facility:[facility] Start: 08-26-2024 End: 08-26-2024 Patient encounter procedure [...] 08-06-2024 Refill Mathew Cobian MD Work Phone: [facility] Comment on above: Refill Request Start: [...] Start: 07-25-2024 End: 07-25-2024 ambulatory MATHEW COBIAN Facility:[facility] Start: 07-25-2024 End: 07-25-2024 Patient encounter procedure Mathew Cobian MD Work Phone: [facility] Comment on above: Hospital discharge f ollow-up (Primary Dx); Closed fracture of proximal end of right fibula, unspecified fracture morphology, sequela; Prostate cancer (HCC) Start: 07-23-2024 End: 07-23-2024 Telephone encounter Mathew Cobian MD Work Phone: [facility] Comment on above: [facility] ER f/u Start: 07-22-2024 End: 07-22-2024 Emergency department patient visit Dr. Franklyn Donaldson DO -Emergency Department Work Phone: Start: 07-20-2024 End: 07-20-2024 Emergency department patient visit KAE BARBER DO [facility] Start: 07-18-2024 End: 07-23-2024 Telephone encounter Brian Ahmadi APRN.CNP Work Phone: [facility] Comment on above: Results Start: 07-12-2024 End: 07-12-2024 ambulatory MATHEW COBIAN Facility:[facility] Start: 07-12-2024 End: 07-12-2024 Office outpatient visit 25 minutes Brian Ahmadi APRN.WRONG ADDRESS CLERK Work Phone: [facility] Comment on above: Hypothyroidism, unsp ecified type (Primary Dx); Recurrent major depressive disorder, remission status unspecified (HCC); Anxiety; Confusion Start: 06-12-2024 End: 06-13-2024 Telephone encounter Mathew Cobian MD Work Phone: [facility] Comment on above: Forms Start: 06-10-2024 End: 06-27-2024 Telephone encounter Mathew Cobian MD Work Phone: [facility] Comment on above: Forms (Apt modificat ion form) Start: 06-07-2024 End: 06-07-2024 ambulatory Calixto Chandler RN NURSE SITE RELIABILITY ENGINEER Start: 06-07-2024 End: 06-07-2024 Patient encounter procedure Calixto Percic RN NURSE SITE RELIABILITY ENGINEER Comment on above: Referral Request Start: 06-07-2024 End: 06-09-2024 Telephone encounter [facility] Start: 06-03-2024 End: 06-03-2024 Telemedicine consultation with patient Devi Cisse MD Work Phone: Neurology Start: 06-03-2024 End: 06-03-2024 ambulatory Devi Cisse MD Work Phone: Neurology Comment on above: Confusion (Primary D x) Start: 06-03-2024 End: 06-03-2024 Telephone encounter Devi Cisse MD Work Phone: Pain Management Comment on above: Appointment Start: 05-22-2024 End: 05-22-2024 ambulatory MATHEW COBIAN Facility:[facility] Start: 05-22-2024 End: 05-22-2024 Patient encounter procedure Jennifer Mcghee FISHING ROD MARKER.WRONG ADDRESS CLERK Work Phone: General Surgery Comment on above: History of colonic p olyps (Primary Dx) Start: 05-17-2024 End: 05-17-2024 ambulatory MATHEW COBIAN Facility:[facility] Start: 05-17-2024 End: 05-17-2024 Patient encounter procedure Prema Alirezabossman FISHING ROD MARKER.WRONG ADDRESS CLERK Work Phone: [facility] Comment on above: Abrasion of lower le g, unspecified laterality, initial encounter (Primary Dx) Start: 05-16-2024 End: 05-16-2024 Telephone encounter Mathew Cobian MD Work Phone: [facility] Comment on above: Letter Start: 05-14-2024 End: 05-14-2024 Patient Outreach Sp San RN Work Phone: [employer] Comment on above: Transition Of Care ( TCM Initial Hospital Discharge /[place] 05/13/24) Initial phone contact for Transitional Care Management Start: 05-13-2024 ambulatory MATHEW COBIAN Facil ity:[facility] Start: 05-13-2024 End: 05-13-2024 Subsequent hospital visit by physician Gilson Bar DO Work Phone: [facility] Comment on above: Diverticulitis [K57. 92] Start: 05-12-2024 End: 05-13-2024 ambulatory GILSON BAR Facility:[facility] Start: 05-08-2024 End: 05-08-2024 ambulatory [facility] Facility:[facility] Start: 05-08-2024 End: 05-08-2024 Office consultation new/estab patient 30 min Gilson Bar DO Work Phone: General Surgery Comment on above: Blood in stool (Prim kamille Dx); Diverticulitis; Bloody stools Start: 05-03-2024 End: 05-03-2024 Office outpatient visit 15 minutes Brian Daiana FISHING ROD MARKER.WRONG ADDRESS CLERK Work Phone: [facility] Comment on above: Diverticulitis (Prim kamille Dx); Bloody stools Start: 05-03-2024 End: 05-03-2024 ambulatory [facility] Facility:[facility] Start: 05-01-2024 End: 05-02-2024 ambulatory Raphael Calderon MD Work Phone: Urology Comment on above: Prostate Start: 04-30-2024 End: 04-30-2024 Office outpatient visit 25 minutes Brian Daiana FISHING ROD MARKER.WRONG ADDRESS CLERK Work Phone: [facility] Comment on above: Diverticulitis (Prim kamille Dx); Bloody stools; Encounter for immunization Start: 04-30-2024 End: 04-30-2024 ambulatory [facility] Facility:[facility] Start: 04-24-2024 End: 04-25-2024 Refill Mathew Cobian MD Work Phone: [facility] Comment on above: Refill Request Start: 04-23-2024 End: 04-23-2024 Emergency department patient visit Mathew Cobian Facility:[facility] Start: 04-23-2024 End: 04-23-2024 ambulatory Mathew Cobian MD Work Phone: [facility] Comment on above: Rectal Bleeding Start: 04-17-2024 End: 04-17-2024 Patient encounter procedure Gypsy Syed APRN.CNP Work Phone: [facility] Comment on above: Hypothyroidism, unsp ecified type (Primary Dx); Memory loss; Neck mass Start: 04-17-2024 End: 04-17-2024 ambulatory [facility] Facility:[facility] Start: 04-14-2024 End: 04-14-2024 ambulatory Brian Ahmadi APRN.WRONG ADDRESS CLERK Work Phone: [facility] Comment on above: TSH Start: 04-14-2024 End: 04-14-2024 E-mail encounter from caregiver Brian Ahmadi APRN.CNP Work Phone: [facility] Start: 04-12-2024 End: 04-12-2024 ambulatory [facility] Facility:[facility] Start: 04-12-2024 End: 04-12-2024 Office outpatient visit 15 minutes Brian Ahmadi APRN.WRONG ADDRESS CLERK Work Phone: [facility] Comment on above: Recurrent major depr essive disorder, remission status unspecified (HCC) (Primary Dx); MANNY (generalized anxiety disorder); Hypothyroidism, unspecified type Start: 04-04-2024 End: 04-04-2024 Telephone encounter Mathew Cobian MD Work Phone: Internal [facility] Comment on above: Consult Start: 03-15-2024 End: 03-15-2024 Telephone encounter Brian Ahmadi APRN.WRONG ADDRESS CLERK Work Phone: [facility] Comment on above: Patient Question Start: 03-15-2024 End: 03-15-2024 Office outpatient visit 25 minutes Brian Ahmadi APRN.WRONG ADDRESS CLERK Work Phone: [facility] Comment on above: Hypothyroidism, unsp ecified type (Primary Dx); Recurrent major depressive disorder, remission status unspecified (HCC); MANNY (generalized anxiety disorder); Memory loss Start: 03-15-2024 End: 03-15-2024 ambulatory [facility] Facility:[facility] Start: 03-13-2024 End: 03-13-2024 Telephone encounter Brian Ahmadi APRN.WRONG ADDRESS CLERK Work Phone: [facility] Comment on above: Results Start: 03-12-2024 End: 03-12-2024 ambulatory [facility] Facility:[facility] Start: 03-12-2024 End: 03-12-2024 Patient encounter procedure Raphael Calderon MD Work Phone: Urology Comment on above: Prostate cancer (HCC ) Start: 03-12-2024 End: 03-12-2024 ambulatory [facility] Facility:[facility] Start: 02-27-2024 Telephone encounter Mathew flores MD Work Phone: [facility] Comment on above: Appointment; Patient Question Start: 02-17-2024 End: 02-17-2024 [facility] Facility:[facility] Start: 02-17-2024 End: 02-17-2024 Patient encounter procedure Abbe Adame APRN.WRONG ADDRESS CLERK Work Phone: [facility] Comment on above: Rash (Primary Dx) Start: 01-29-2024 Refill Brian DUMONT RN.WRONG ADDRESS CLERK Work Phone: [facility] Comment on above: Refill Request Start: 12-20-2023 Telephone encounter Gypsy arreola FISHING ROD MARKER.WRONG ADDRESS CLERK Work Phone: [facility] Comment on above: Results (Labs ) Start: 12-14-2023 End: 12-14-2023 Patient encounter procedure Gypsy Syed APRN.WRONG ADDRESS CLERK Work Phone: [facility] Comment on above: Irritability (Primar y Dx); Anxiety; Memory changes; Hypothyroidism, unspecified type; Sensation of fullness in both ears; Cerebral palsy, unspecified type (HCC); Alcohol use Start: 12-07-2023 Refill Gypsy Syed APRN.WRONG ADDRESS CLERK Work Phone: [facility] Comment on above: Med Change Request Start: 12-06-2023 ambulatory Ava Dunn RN NURSE O N CALL Comment on above: Medication Problem Start: 12-06-2023 Telephone encounter Gypsy arreola FISHING ROD MARKER.WRONG ADDRESS CLERK Work Phone: [facility] Comment on above: Medication Problem Start: 11-03-2023 Telephone encounter Carolyn Tavera FISHING ROD MARKER.WRONG ADDRESS CLERK Work Phone: [facility] Start: 11-02-2023 Refill Gypsy Syed FISHING ROD MARKER.WRONG ADDRESS CLERK Work Phone: [facility] Comment on above: Med Change Request Start: 11-01-2023 End: 11-01-2023 Subsequent hospital visit by physician [facility] Comment on above: Pain in right testic le [N50.811] Start: 11-01-2023 End: 11-01-2023 Patient encounter procedure Barbara Quarles FISHING ROD MARKER.WRONG ADDRESS CLERK Work Phone: [facility] Comment on above: Pain in right testic le (Primary Dx); Right groin pain Start: 10-26-2023 Telephone encounter Mathew flores MD Work Phone: [facility] Comment on above: Handicap placard Start: 10-17-2023 End: 10-17-2023 Patient encounter procedure Mathew Cobian MD Work Phone: [facility] Comment on above: Hospital discharge f ollow-up (Primary Dx); Screening for colon cancer; Chronic bilateral low back pain with right-sided sciatica; Dizziness; Cerebral palsy, unspecified type (HCC); Recurrent major depressive disorder, remission status unspecified (HCC); Prostate cancer (HCC) Start: 10-16-2023 Telephone encounter Mathew flores MD Work Phone: [facility] Comment on above: Patient Update Start: 10-11-2023 Telephone encounter Cameron de los santos MD Work Phone: [facility] Comment on above: New Patient (Develop mental venous anomaly 09/26/23 ED admission) Start: 10-02-2023 Telephone encounter Mathew flores MD Work Phone: [facility] Comment on above: Patient Update; FYI- No Action Needed Start: 09-29-2023 End: 09-29-2023 ambulatory [facility] Facility:[facility] Start: 09-27-2023 Telephone encounter Mathew flores MD Work Phone: [facility] Comment on above: Patient Update Start: 09-26-2023 End: 09-29-2023 Evaluation and management of inpatient AISHA STOREY Facility:[facility] Start: 09-26-2023 End: 09-29-2023 Evaluation and management of inpatient Evan Burnham MD Work Phone: [facility] Comment on above: Developmental venous anomaly Start: 09-15-2023 Telephone encounter Gypsy arreola FISHING ROD MARKER.WRONG ADDRESS CLERK Work Phone: [facility] Comment on above: Results (Labs ); Ord ers Start: 09-14-2023 End: 09-14-2023 Patient encounter procedure Gypsy Syed FISHING ROD MARKER.WRONG ADDRESS CLERK Work Phone: [facility] Comment on above: JODEE (obstructive sle ep apnea) (Primary Dx); Bilateral impacted cerumen; Brain fog; Hypothyroidism, unspecified type; Vitamin D deficiency Start: 09-12-2023 End: 09-12-2023 ambulatory [facility] Facility:[facility] Start: 08-25-2023 Telephone encounter Mathew flores MD Work Phone: [facility] Comment on above: Forms ([employer]) Start: 08-17-2023 Telephone encounter Mathew flores MD Work Phone: [facility] Comment on above: Forms Start: 07-31-2023 End: 07-31-2023 Subsequent hospital visit by physician Xr [facility] Work Phone: Radiology Comment on above: Subacute cough [R05. 2] Start: 06-14-2023 Refill Brian DUMONT RN.WRONG ADDRESS CLERK Work Phone: [facility] Comment on above: Refill Request Start: 04-17-2023 Telephone encounter Mathew flores MD Work Phone: [facility] Comment on above: FYI-No Action Needed (Dr. Conklin's office will not see pt) Start: 04-14-2023 Telephone encounter Abbe Adame APRN.WRONG ADDRESS CLERK Work Phone: [facility] Comment on above: Results Start: 04-12-2023 End: 04-12-2023 Patient encounter procedure Abbe Adame APRN.WRONG ADDRESS CLERK Work Phone: [facility] Comment on above: Urinary frequency (P rimary Dx); Prostatitis, acute Start: 04-12-2023 Telephone encounter Mathew flores MD Work Phone: [facility] Comment on above: UTI s/s Start: 03-29-2023 ambulatory No Pcp FISHING ROD MARKER [place] Start: 03-16-2023 Telephone encounter Mathew flores MD Work Phone: [facility] Comment on above: Referral Request Start: 03-16-2023 End: 03-16-[address] [facility] Work Phone: Start: 03-16-2023 End: 03-16-2023 Discharged Recur[address] [facility] Work Phone: Start: 01-11-2023 Telephone encounter Mathew flores MD Work Phone: [facility] Comment on above: Letter; Forms Start: 12-21-2022 Telephone encounter Mathew flores MD Work Phone: [facility] Comment on above: Letter Start: 12-20-2022 End: 12-20-2022 Office outpatient visit 25 minutes Brian Ahmadi APRN.WRONG ADDRESS CLERK Work Phone: [facility] Comment on above: Cerebral palsy, unsp [...] Mathew flores MD Work Phone: [facility] Comment on above: Lab Orders Start: 09-16-2022 Telephone encounter Hardik quintanilla DO Work Phone: Hematology/Oncology Comment on above: Refill Request Start: 07-22-2022 Refill Mathew manuel MD Work Phone: [facility] Comment on above: Refill Request Start: 06-10-2022 Telephone encounter Mathew flores MD Work Phone: [facility] Comment on above: Results Start: 06-07-2022 End: [...] 04-19-2022 ambulatory Helder Sibley DO Work Phone: [facility] Comment on above: Malignant neoplasm o f prostate (HCC) (Primary Dx) Start: 04-19-2022 End: 04-19-2022 Telemedicine consultation with patient Helder Sibley DO Work Phone: [employer] Start: 03-03-2022 Refill Hardik Joseph Work Phone: Hematology/Oncology Comment on above: Refill Request Start: 03-02-2022 Patient Outreach Mathew mensah MD Work Phone: [facility] Comment on above: Transition Of Care Start: 02-27-2022 End: 02-27-2022 [facility] Start: 02-17-2022 Telephone encounter Robert lowe [...] encounter procedure Hardik Spain DO Work Phone: [facility] Start: 01-14-2022 End: 01-14-2022 Subsequent hospital visit by physician Xr [facility] Work Phone: Radiology Comment on above: Abnormal x-ray of pe lvis [R93.7] Start: 12-23-2021 ambulatory Mathew manuel MD Work Phone: [facility] Comment on above: CPAP Start: 12-22-2021 Telephone encounter Robert lowe MD Work Phone: Neurology Comment on above: Patient Update (home health ) Start: 12-13-2021 Refill Brian DUMONT RN.WRONG ADDRESS CLERK Work Phone: [facility] Comment on above: Refill Request Start: 12-11-2021 ambulatory Merlyn Rutherford RN SHANEKA SITE RELIABILITY ENGINEER Comment on above: Blood Pressure Start: 11-26-2021 Refill Mathew manuel MD Work Phone: [facility] Comment on above: Refill Request Start: 10-27-2021 Telephone encounter Robert lowe MD Work Phone: [facility] Comment on above: HHC and POC Start: 08-26-2021 End: 08-26-2021 Subsequent hospital visit by physician Mri [facility] (I-Stat/1.5t) Work Phone: Radiology Comment on above: Canceled (Pt cx: Wea ther) Start: 03-18-2021 End: 03-18-2021 Subsequent hospital visit by physician Xr [facility] Work Phone: Radiology Comment on above: Pain [R52] Procedures Date Procedure Procedure Detail Performing Clinician Start: 12-25-2024 Iadna streptococcus group a amplified probe tq Ronald Cat FISHING ROD MARKER.WRONG ADDRESS CLERK Work Phone: Start: 07-22-2024 MRI of lower [...] VACCINE AGE 12+ YR (COMIRNATY) Brian Ahmadi FISHING ROD MARKER.WRONG ADDRESS CLERK Work Phone: Start: 11-01-2023 Dup-scan artl flora abdl/pel/scrot&/rpr orgn com Barbara Quarles FISHING ROD MARKER.WRONG ADDRESS CLERK Work Phone: Start: 11-01-2023 Us scrotum & contents J natalya Quarles FISHING ROD MARKER.WRONG ADDRESS CLERK Work Phone: Start: 11-01-2023 Urnls dip stick/tabl et rgnt auto w/o microscopy [facility] Provider Start: 09-28-2023 Glucose measurement, blood Cristina Chan MD Work Phone: Start: 09-28-2023 CONTINUOUS CARDIAC [...] on above: Performed By: #### A 1CB, [id number] #### [facility] ([facility] [address] [place] [address] Start: 09-27-2023 Mri brain brain stem w/o [...] exam ches t 2 views Willie Gilbert FISHING ROD MARKER.WRONG ADDRESS CLERK Work Phone: Start: 04-12-2023 Urnls dip stick/tabl et rgnt auto w/o microscopy Barbara Quarles FISHING ROD MARKER.WRONG ADDRESS CLERK Work Phone: Start: 01-14-2022 Radiologic examinati on [...] specific antigen measurement Prostate Cancer Screening Discussion [facility] Start: 09-25-2028 Lipid panel LIPID SCREENING [facility] Start: 09-12-2028 Prostate specific antigen measurement Prostate Cancer Screening Discussion [facility] Start: 08-28-2028 DTaP/Tdap/Td Vaccine s (3 - Td or Tdap) DTaP/Tdap/Td Vaccines (3 - Td or Tdap) [facility] Start: 08-28-2028 Tetanus vaccination TETANUS [facility] Start: 08-28-2028 Urine microalbumin profile [facility] Start: 01-18-2028 Diabetes Screening Diabetes Screenin g [facility] Start: 12-15-2027 PROSTATE CANCER SCREENING DISCUSSION PROSTATE CANCER SCREENING DISCUSSION [facility] Start: 12-15-2027 Prostate specific antigen measurement Prostate Cancer Screening Discussion [facility] Start: 07-12-2027 Diabetes Screening Diabetes Screenin g [facility] Start: 2027 RSV Immunization age d 60 or older (1 - 1-dose 60+ series) RSV Immunization aged 60 or older (1 - 1-dose 60+ series) [facility] Start: 04-18-2027 PROSTATE CANCER SCREENING DISCUSSION PROSTATE CANCER SCREENING DISCUSSION [facility] Start: 03-12-2027 Diabetes Screening Diabetes Screenin g [facility] Start: 12-13-2026 Diabetes Screening Diabetes Screenin g [facility] Start: 10-04-2026 Diabetes Screening Diabetes Screenin g [facility] Start: 09-14-2026 Diabetes Screening Diabetes Screenin g [facility] Start: 07-13-2026 Diabetes Screening Diabetes Screenin g [facility] Start: 01-17-2026 Annual PCP Team [employer] reina Disease Visit Annual PCP Team Chronic Disease Visit [facility] Start: 01-14-2026 Annual PCP Team [employer] reina Disease Visit Annual PCP Team Chronic Disease Visit [facility] Start: 12-14-2025 DIABETES SCREEN DIABETES SCREEN [facility] Start: 05-24-2026 Diabetes Screening Diabetes Screenin g [facility] Start: 12-13-2025 Annual PCP Team [employer] reina Disease Visit Annual PCP Team Chronic Disease Visit [facility] Start: 07-25-2025 Annual PCP Team [employer] Dist[employer] reina Disease Visit Annual PCP Team Chronic Disease Visit [facility] Start: 07-12-2025 Annual PCP Team [employer] Dist[employer] reina Disease Visit Annual PCP Team Chronic Disease Visit [facility] Start: 05-20-2025 End: 05-20-2025 Patient encounter procedure 05/20/2025 11:00 AM EDT Office Visit Urology [address] [address] Raphael Calderon Jr., MD [address] [place], [place] [id number] 6 month follow up Urology Comment on above: 6 month follow up Start: 05-13-2025 Screening for malign ant neoplasm of colon [facility] Start: 05-03-2025 Annual PCP Team [employer] reina Disease Visit Annual PCP Team Chronic Disease Visit [facility] Start: 04-30-2025 Annual PCP Team [employer] reina Disease Visit Annual PCP Team Chronic Disease Visit [facility] Start: 04-17-2025 Annual PCP Team [employer] reina Disease Visit Annual PCP Team Chronic Disease Visit [facility] Start: 04-12-2025 Annual PCP Team [employer] reina Disease Visit Annual PCP Team Chronic Disease Visit [facility] Start: 03-24-2025 Influenza vaccination Influenz a Vaccine (Season Ended) [facility] Start: 03-15-2025 Annual PCP Team [employer] reina Disease Visit Annual PCP Team Chronic Disease Visit [facility] Start: 01-23-2025 End: 01-23-2025 Patient encounter procedure 01/23/2025 10:00 AM EDT Office Visit General Surgery [address] [place] [address] Jennifer Mcghee APRN.WRONG ADDRESS CLERK [address] [place] [address] diverticulitis f/u see TE per nurse General Surgery Comment on above: diverticulitis f/u s ee TE per nurse Start: 01-21-2025 End: 01-21-2025 Patient encounter procedure [facility] Comment on above: 6 month follow up Fungal infection of toenail [B35.1] Start: 01-20-2025 Influenza vaccination Influenza Vacc ine (#1) [facility] Comment on above: Postponed from 03/24 (Declined at this time) Start: 01-17-2025 End: 04-18-2025 Cobalamin (Vitamin B12) [Mass/volume] in Serum or Plasma [facility] Comment on above: Expected: 01/17/2025 , Expires: 04/18/2025 Start: 01-17-2025 End: 04-18-2025 Pyridoxine [Mass/volume] in Serum or Plasma [facility] Comment on above: Expected: 01/17/2025 , Expires: 04/18/2025 Start: 01-17-2025 End: 04-18-2025 Riboflavin [Moles/volume] in Serum or Plasma [facility] Comment on above: Expected: 01/17/2025 , Expires: 04/18/2025 Start: 01-17-2025 End: 04-18-2025 VITAMIN B1 (THIAMINE), WHOLE BLOOD [facility] Work Phone: Comment on above: Expected: 01/17/2025 , Expires: 04/18/2025 Start: 01-17-2025 End: 01-17-2025 Patient encounter procedure 01/17/2025 10:20 AM EDT Office Visit [facility] [address] [place] [address] [phone] Ino Esquead APRN.WRONG ADDRESS CLERK [address] [place] [address] [phone] 3 day follow up [facility] Comment on above: 3 day follow up Start: 01-14-2025 End: 01-14-2025 Patient encounter procedure 01/14/2025 10:20 AM EDT Office Visit [facility] [address] [place] [address] [phone] Ino Esqueda APRN.WRONG ADDRESS CLERK [address] [place] [id number] skin tags,allergies [facility] Comment on above: skin tags,allergies Start: 12-13-2024 Annual PCP Team [employer] reina Disease Visit Annual PCP Team Chronic Disease Visit [facility] Start: 11-05-2024 Tarun Siddiqui [facility] Start: 10-28-2024 End: 10-28-2024 Patient encounter procedure 10/28/2024 10:20 AM EDT Appointment [facility] [address] [place] [address] Prostate cancer (HCC) [C61] [facility] Comment on above: Prostate cancer (HCC ) [C61] Start: 10-16-2024 Annual PCP Team Oil Distributor reina Disease Visit Annual PCP Team Chronic Disease Visit [facility] Start: 10-16-2024 Covid-19 Vaccine () Covid-19 Vaccine () [facility] Comment on above: Postponed from 03/24 (Declined at this time) Start: 09-14-2024 Annual PCP Team Oil Distributor reina Disease Visit Annual PCP Team Chronic Disease Visit [facility] Start: 09-12-2024 End: 12-12-2024 Prostate specific Ag [Mass/volume] in Serum or Plasma PROSTATE-SPECIFIC ANTIGEN DIAGNOSTIC Lab Routine Prostate cancer (HCC) Expected: 09/12/2024, Expires: 12/12/2024 [facility] Comment on above: Expected: 09/12/2024 , Expires: 12/12/2024 Start: 09-10-2024 End: 09-10-2024 Patient encounter procedure 09/10/2024 11:15 AM EST Office Visit Urology [address] [address] Raphael Calderon Jr., MD [address] [place] [address] 6 mth follow up to scan Urology Comment on above: 6 mth follow up to s can Start: 08-29-2024 End: 11-28-2024 Thyrotropin [Units/volume] in Serum or Plasma THYROID STIMULATING HORMONE Lab Routine Hypothyroidism, unspecified type Expected: 08/29/2024, Expires: 11/28/2024 [facility] Work Phone: Comment on above: Expected: 08/29/2024 , Expires: 11/28/2024 Start: 08-26-2024 End: 08-26-2024 Patient encounter procedure 08/26/2024 10:30 AM EST Office Visit Orthopaedics [address] [place] [address] Tammie Benitez PA-C [address] [place] [address] Follow up Orthopaedics Comment on above: Follow up Start: 08-15-2024 Annual PCP Team Oil Distributor reina Disease Visit Annual PCP Team Chronic Disease Visit [facility] Start: 07-29-2024 End: 07-29-2024 Patient encounter procedure 07/29/2024 3:30 PM EST Office Visit Orthopaedics [address] [place] [address] Tammie Benitez PA-C [address] [place] [address] Right fibula fracture - [facility] ED Orthopaedics Comment on above: Right fibula fractur e - [facility] ED Start: 07-29-2024 DIABETES SCREEN DIABETES SCREEN [facility] Start: 07-29-2024 End: 07-29-2024 Patient encounter procedure 07/29/2024 10:20 AM EST Appointment [facility] [place] [address] Prostate cancer (HCC) [C61] [facility] Comment on above: Prostate cancer (HCC ) [C61] Start: 07-25-2024 End: 07-25-2024 Patient encounter procedure 07/25/2024 10:00 AM EST Office Visit Family Jose Miguel Mcneil [address] [place] [address] Mathew Cobian MD [address] [place], [place] [phone] [facility] ER f/u closed fx of fibula proximal right. 07-22-24 Family [facility] Comment on above: [facility] ER f/u closed fx of fibula proximal right. 07-22-24 Start: 07-24-2024 Medicare Advantage Annual Wellness Visit Medicare Advantage Annual Wellness Visit [facility] Start: 07-22-2024 [facility] Start: 07-12-2024 End: 07-12-2024 Patient encounter procedure 07/12/2024 11:00 AM EST Office Visit [facility] [address] [place], [place] [address] Brian Ahmadi, FISHING ROD MARKER.WRONG ADDRESS CLERK [address] [place], [place] [address] 3 month follow up [facility] Comment on above: 3 month follow up Start: 07-07-2024 End: 10-06-2024 Basic metabolic 2000 panel - Serum or Plasma BASIC METABOLIC PANEL Lab Routine Hypothyroidism, unspecified type Expected: 07/07/2024 (Approximate), Expires: 10/06/2024 [facility] Comment on above: Expected: 07/07/2024 (Approximate), Expires: 10/06/2024 Start: 07-07-2024 End: 10-06-2024 Thyrotropin [Units/volume] in Serum or Plasma THYROID STIMULATING HORMONE Lab Routine Hypothyroidism, unspecified type Expected: 07/07/2024 (Approximate), Expires: 10/06/2024 [facility] Work Phone: Comment on above: Expected: 07/07/2024 (Approximate), Expires: 10/06/2024 Start: 06-03-2024 End: 06-03-2024 ambulatory 06/03/2024 3:00 PM EST [facility] Neu[facility] [address] [id number] Devi Cisse MD [address] [place], [place] [phone] memory change Neurology Comment on above: memory change Start: 06-03-2024 End: 09-02-2024 Cobalamin (Vitamin B12) [Mass/volume] in Serum or Plasma VITAMIN B12 Lab Routine Confusion Expected: 06/03/2024, Expires: 09/02/2024 [facility] Comment on above: Expected: 06/03/2024 , Expires: 09/02/2024 Start: 06-03-2024 End: 09-02-2024 Folate [Mass/volume] in Serum or Plasma FOLATE, SERUM Lab Routine Confusion Expected: 06/03/2024, Expires: 09/02/2024 [facility] Comment on above: Expected: 06/03/2024 , Expires: 09/02/2024 Start: 06-03-2024 End: 09-02-2024 Magnesium [Mass/volume] in Serum or Plasma MAGNESIUM Lab Routine Confusion Expected: 06/03/2024, Expires: 09/02/2024 [facility] Comment on above: Expected: 06/03/2024 , Expires: 09/02/2024 Start: 06-03-2024 End: 09-02-2024 Methylmalonate [Moles/volume] in Serum or Plasma METHYLMALONIC ACID Lab Routine Confusion Expected: 06/03/2024, Expires: 09/02/2024 [facility] Comment on above: Expected: 06/03/2024 , Expires: 09/02/2024 Start: 06-03-2024 End: 09-02-2024 Thyrotropin [Units/volume] in Serum or Plasma THYROID STIMULATING HORMONE Lab Routine Confusion Expected: 06/03/2024, Expires: 09/02/2024 [facility] Comment on above: Expected: 06/03/2024 , Expires: 09/02/2024 Start: 05-22-2024 End: 05-22-2024 Patient encounter procedure 05/22/2024 11:15 AM EDT Office Visit General Surgery [address] [place] [address] Gilson Bar DO [address] [place] [id number] f/u colonoscopy General Surgery Comment on above: f/u colonoscopy Start: 05-13-2024 End: 05-13-2024 Patient encounter procedure 05/13/2024 8:15 AM EDT Appointment [facility] Endoscopy [address] [place] [address] Gilson Bar, DO [address] [place] [address] Yuko Silva APRN.CATERING MANAGER [address] [place] [address] [place] [address] [place] [address] to be admitted the day prior per colon [facility] Endoscopy Comment on above: to be admitted the d ay prior per [facility] Start: 05-08-2024 End: 05-08-2024 Patient encounter procedure 05/08/2024 1:00 PM EDT Office Visit General Surgery [address] [place], [place] [address] Gilson Bar, DO [address] [place] [address] Diverticulitis [K57.92] General Surgery Comment on above: Diverticulitis [K57. 92] Start: 05-03-2024 End: 05-03-2024 Patient encounter procedure 05/03/2024 10:40 AM EDT [facility] Visit [facility] [address] [place], [place] [phone] Brian Ahmadi APRN.WRONG ADDRESS CLERK [address] [place], [place] [phone] Follow up [facility] Comment on above: Follow up Start: 05-02-2024 End: 08-01-2024 Prostate specific Ag [Mass/volume] in Serum or Plasma PROSTATE-SPECIFIC ANTIGEN DIAGNOSTIC Lab Routine Prostate cancer (HCC) Expected: 05/02/2024, Expires: 08/01/2024 [facility] Work Phone: Comment on above: Expected: 05/02/2024 , Expires: 08/01/2024 Start: 04-24-2024 End: 04-24-2024 ambulatory 04/24/2024 9:00 AM EDT [facility] Neurology [address] [address] Devi Cisse MD [address] [place] [address] Memory changes [R41.3] Neurology Comment on above: Memory changes [R41. 3] Start: 04-24-2024 End: 04-24-2024 Patient encounter procedure 04/24/2024 9:00 AM EDT Office Visit Neurology [address] [address] Devi Cisse MD [address] [place] [address] Memory changes [R41.3] Neurology Comment on above: Memory changes [R41. 3] Start: 04-22-2024 End: 04-22-2024 Patient encounter procedure 04/22/2024 10:45 AM EDT Appointment Radiology [address] [place], [place] [phone] Neck mass [R22.1] Radiology Comment on above: Neck mass [R22.1] Start: 04-12-2024 End: 07-12-2024 Thyrotropin [Units/volume] in Serum or Plasma THYROID STIMULATING HORMONE Lab Routine Hypothyroidism, unspecified type Expected: 04/12/2024 (Approximate), Expires: 07/12/2024 [facility] Work Phone: Comment on above: Expected: 04/12/2024 (Approximate), Expires: 07/12/2024 Start: 04-12-2024 End: 04-12-2024 Patient encounter procedure 04/12/2024 10:40 AM EDT Office Visit [facility] [address] [place], [place] [phone] Brian Ahmadi APRN.WRONG ADDRESS CLERK [address] [facility] [place] [phone] 4 week follow up [facility] Comment on above: 4 week follow up Start: 03-24-2024 Covid-19 Vaccine (4 - 2023-24 season) Covid-19 Vaccine ( season) [facility] Start: 03-24-2024 Covid-19 Vaccine ( season) Covid-19 Vaccine ( season) [facility] Start: 03-24-2024 Influenza vaccination [facility] Start: 03-15-2024 End: 03-15-2024 Patient encounter procedure 03/15/2024 10:20 AM EDT Office Visit [facility] [address] [place], [place] [phone] Brian Ahmadi APRN.WRONG ADDRESS CLERK [address] [place], [place] [phone] Follow up for TSH Lab [facility] Comment on above: Follow up for TSH La b Start: 03-12-2024 End: 03-12-2024 Patient encounter procedure 03/12/2024 11:30 AM EDT Office Visit Urology [address] [phone] Raphael Calderon Jr., MD [address] [place], [place] [address] 6 mth follow up Urology Comment on above: 6 mth follow up Start: 01-21-2024 Influenza vaccination Influenza Vacc ine (#1) [facility] Comment on above: Postponed from 03/24 (Declined at this time) Start: 12-21-2023 ANNUAL PCP TEAM MANAGER OF MARKETING REINA DISEASE VISIT ANNUAL PCP TEAM CHRONIC DISEASE VISIT [facility] Start: 12-14-2023 End: 03-14-2024 VITAMIN B1 (THIAMINE), WHOLE BLOOD [facility] Work Phone: Comment on above: Expected: 12/14/2023 , Expires: 03/14/2024 Start: 10-18-2023 End: 10-18-2023 Patient encounter procedure 10/18/2023 8:00 AM EDT Office Visit [facility] [address] [place] [phone] Cameron Taylor MD [address] [place] [address] [facility] Start: 09-15-2023 End: 12-15-2023 Thyrotropin [Units/volume] in Serum or Plasma TSH BLD Lab Routine Hypothyroidism, unspecified type Expected: 09/15/2023, Expires: 12/15/2023 [facility] Work Phone: Comment on above: Expected: 09/15/2023 , Expires: 12/15/2023 Start: 09-15-2023 End: 12-15-2023 Thyroxine (T4) free [Mass/volume] in Serum or Plasma T4 FREE/FREE THYROX Lab Routine Hypothyroidism, unspecified type Expected: 09/15/2023, Expires: 12/15/2023 [facility] Work Phone: Comment on above: Expected: 09/15/2023 , Expires: 12/15/2023 Start: 09-14-2023 End: 12-14-2023 25-hydroxyvitamin D3 [Mass/volume] in Serum or Plasma [facility] Work Phone: Comment on above: Expected: 09/14/2023 , Expires: 12/14/2023 Start: 09-14-2023 End: 12-14-2023 Cobalamin (Vitamin B12) [Mass/volume] in Serum or Plasma [facility] Work Phone: Comment on above: Expected: 09/14/2023 , Expires: 12/14/2023 Start: 09-14-2023 End: 12-14-2023 Comprehensive metabolic 2000 panel - Serum or Plasma [facility] Work Phone: Comment on above: Expected: 09/14/2023 , Expires: 12/14/2023 Start: 09-14-2023 End: 12-14-2023 Folate [Mass/volume] in Serum or Plasma [facility] Work Phone: Comment on above: Expected: 09/14/2023 , Expires: 12/14/2023 Start: 09-14-2023 End: 12-14-2023 Thyrotropin [Units/volume] in Serum or Plasma [facility] Work Phone: Comment on above: Expected: 09/14/2023 , Expires: 12/14/2023 Start: 09-14-2023 End: 12-14-2023 Thyroxine (T4) free [Mass/volume] in Serum or Plasma [facility] Work Phone: Comment on above: Expected: 09/14/2023 , Expires: 12/14/2023 Start: 07-24-2023 Depression Assessment Depression Ass essment [facility] Start: 06-07-2023 ANNUAL PCP TEAM MANAGER OF MARKETING REINA DISEASE VISIT ANNUAL PCP TEAM CHRONIC DISEASE VISIT [facility] Start: 03-24-2023 COVID-19 VACCINE () COVID-19 VACCINE () [facility] Start: 03-24-2023 Covid-19 Vaccine () Covid-19 Vaccine () [facility] Start: 03-24-2023 Influenza vaccination [facility] Start: 02-19-2023 End: 04-21-2023 25-hydroxyvitamin D3 [Mass/volume] in Serum or Plasma VITAMIN D 25 HYDROXY Lab Routine Vitamin D deficiency Expected: 02/19/2023 (Approximate), Expires: 04/21/2023 [facility] Work Phone: Comment on above: Expected: 02/19/2023 (Approximate), Expires: 04/21/2023 Start: 02-19-2023 End: 04-21-2023 Thyrotropin [Units/volume] in Serum or Plasma TSH BLD Lab Routine Hypothyroidism, unspecified type Expected: 02/19/2023 (Approximate), Expires: 04/21/2023 [facility] Work Phone: Comment on above: Expected: 02/19/2023 (Approximate), Expires: 04/21/2023 Start: 01-20-2023 Influenza vaccination INFLUENZA (#1) [facility] Comment on above: Postponed from 03/24 (Declined at this time) Start: 11-14-2022 End: 01-14-2023 25-hydroxyvitamin D3 [Mass/volume] in Serum or Plasma VITAMIN D 25 HYDROXY Lab Routine Vitamin D deficiency Expected: 11/14/2022 (Approximate), Expires: 01/14/2023 [facility] Work Phone: Comment on above: Expected: 11/14/2022 (Approximate), Expires: 01/14/2023 Start: 11-14-2022 End: 01-14-2023 CBC panel - Blood by Automated count CBC Lab Routine Alcohol use GERD without esophagitis Expected: 11/14/2022 (Approximate), Expires: 01/14/2023 [facility] Work Phone: Comment on above: Expected: 11/14/2022 (Approximate), Expires: 01/14/2023 Start: 11-14-2022 End: 01-14-2023 Comprehensive metabolic 2000 panel - Serum or Plasma COMP METABOLIC PANEL Lab Routine Alcohol use Expected: 11/14/2022 (Approximate), Expires: 01/14/2023 [facility] Work Phone: Comment on above: Expected: 11/14/2022 (Approximate), Expires: 01/14/2023 Start: 11-14-2022 End: 01-14-2023 Thyrotropin [Units/volume] in Serum or Plasma TSH BLD Lab Routine Hypothyroidism, unspecified type Alcohol use Expected: 11/14/2022 (Approximate), Expires: 01/14/2023 [facility] Work Phone: Comment on above: Expected: 11/14/2022 (Approximate), Expires: 01/14/2023 Start: 11-14-2022 End: 01-14-2023 VITAMIN B1 (THIAMINE), WHOLE BLOOD VITAMIN B1 (THIAMINE), WHOLE BLOOD Lab Routine Alcohol use Expected: 11/14/2022 (Approximate), Expires: 01/14/2023 [facility] Work Phone: Comment on above: Expected: 11/14/2022 (Approximate), Expires: 01/14/2023 Start: 10-17-2022 End: 12-17-2022 Prostate specific Ag [Mass/volume] in Serum or Plasma PSA/PROSTSPECAG DIAG Lab Routine Malignant neoplasm of prostate (HCC) Expected: 10/17/2022, Expires: 12/17/2022 [facility] Work Phone: Comment on above: Expected: 10/17/2022 , Expires: 12/17/2022 Start: 09-10-2022 End: 11-10-2022 Thyrotropin [Units/volume] in Serum or Plasma TSH BLD Lab Routine Hypothyroidism, unspecified type Expected: 09/10/2022 (Approximate), Expires: 11/10/2022 [facility] Work Phone: Comment on above: Expected: 09/10/2022 (Approximate), Expires: 11/10/2022 Start: 07-24-2022 DEPRESSION ASSESSMENT DEPRESSION ASS ESSMENT [facility] Start: 07-18-2022 Adult depression screening assessment DEPRESSION SCREENING [facility] Start: 06-08-2022 Influenza vaccination LUNG CANCER SC REENING [facility] Start: 06-08-2022 Screening for malign ant neoplasm of lung Lung Cancer Screening [facility] Start: 06-07-2022 Lipid 1996 panel - S alma delia or Plasma Lipid Screening [facility] Start: 06-07-2022 Lipid panel Lipid Screening [facility] Start: 06-07-2022 LIPID SCREEN LIPID SCREEN [facility] Start: 04-16-2022 ANNUAL PCP TEAM MANAGER OF MARKETING REINA DISEASE VISIT ANNUAL PCP TEAM CHRONIC DISEASE VISIT [facility] Start: 03-24-2022 Influenza vaccination [facility] Start: 10-28-2021 COVID-19 VACCINE (4 - Booster for Pfizer series) COVID-19 VACCINE (4 - Booster for Pfizer series) [facility] Start: 08-24-2021 COVID-19 VACCINE (4 - Booster for Pfizer series) COVID-19 VACCINE (4 - Booster for Pfizer series) [facility] Start: 08-24-2021 COVID-19 VACCINE (4 - Pfizer series) COVID-19 VACCINE (4 - Pfizer series) [facility] Start: 07-24-2021 DEPRESSION ASSESSMENT DEPRESSION ASS ESSMENT [facility] Start: 2017 Pneumococcal Vaccine : 50+ (1 of 1 - PCV) Pneumococcal Vaccine: 50+ (1 of 1 - PCV) [facility] Start: 2017 Prostate specific antigen measurement PROSTATE CANCER SCREENING DISCUSSION [facility] Start: 2017 SHINGRIX VACCINE (1 of 2) SHINGRIX VACCINE (1 of 2) [facility] Start: 2017 Zoster vaccine hzv l joselyn for subcutaneous use ZOSTER (SHINGLES) VACCINE (1 of 2) [facility] Start: 2017 Zoster Vaccines (1 of 2) Zoste r Vaccines (1 of 2) [facility] Start: 2012 COLOGUARD (FIT-DNA) COLOGUARD (FIT-D NA) [facility] Start: 2012 Colonoscopy COLONOSCOPY [facility] Start: 2012 COLORECTAL CANCER SCREENING COLORECTAL CANCER SCREENING [facility] Start: [address] COLONOGRAPHY [facility] Start: 2012 FECAL OCCULT BLOOD FECAL OCCULT BLOO D [facility] Start: 2012 Screening for malign ant neoplasm of colon [facility] Start: [address] [facility] Start: 1986 Hepatitis B vaccination HEP B VACCINE (1 of 3 - 19+ 3-dose series) [facility] Start: 1986 Hepatitis B Vaccine (1 of 3 - 19+ 3-dose series) Hepatitis B Vaccine (1 of 3 - 19+ 3-dose series) [facility] Start: 1986 Hepatitis B Vaccines (1 of 3 - 19+ 3-dose series) Hepatitis B Vaccines (1 of 3 - 19+ 3-dose series) [facility] Start: 1986 SHINGRIX VACCINE (1 of 2) SHINGRIX VACCINE (1 of 2) [facility] Start: 1985 Hepatitis C screening Hepatitis C Sc reening [facility] Start: 1985 HIV SCREENING HIV SCREENING [facility] Start: 1985 HIV screening HIV Screening [facility] Start: 1982 HIV screening HIV SCREENING DISCUSSION [facility] Start: 1979 Depression Screening Depression Scre ening [facility] Start: 1973 PNEUMOCOCCAL (1 - PCV) PNEUMOCOCCAL (1 - PCV) [facility] Start: 1973 Pneumococcal vaccination [facility] Start: 1968 MMR Vaccines (1 of 1 - Standard series) MMR Vaccines (1 of 1 - Standard series) [facility] Start: 1967 HEPATITIS B (1 of 3 - 3-dose series) HEPATITIS B (1 of 3 - 3-dose series) [facility] Start: 1967 Hepatitis B Vaccine (1 of 3 - 3-dose series) Hepatitis B Vaccine (1 of 3 - 3-dose series) [facility] Start: 1967 Hepatitis C screening HEPATITI S C VIRUS SCREENING [facility] Start: 1967 HIV screening HIV Screening [facility] Start: 1967 Lipid panel Lipid Panel [facility] Start: 1967 Screening for malign ant neoplasm of colon [facility] Start: 1967 Thyroid stimulating hormone measurement TSH [facility] BACH SCREENING TEST BACH SCREENI NG TEST Procedures Routine Memory loss Ordered: 03/15/2024 [facility] Comment on above: Ordered: 03/15/2024 Bacteria identified in Urine by Culture URINE CULTURE Microbiology Routine Urinary frequency 04/12/2023 8:00 PM EDT [facility] Work Phone: Bacteria identified in Urine by Culture URINE CULTURE Microbiology Routine Pain in right testicle Right groin pain 11/01/2023 4:37 PM EDT [facility] Work Phone: End: 06-03-2025 EPIL EEG ROUTINE EPIL EEG ROUTINE NEUROLOGY Routine Confusion 1 Occurrences starting 06/03/2024 until 06/03/2025 [facility] Work Phone: Comment on above: 1 Occurrences starti ng 06/03/2024 until 06/03/2025 End: 05-08-2025 Flexible sigmoidoscopy study COLONOSCOPY DIAGNOSTIC Endoscopy Routine Diverticulitis Bloody stools 1 Occurrences starting 05/08/2024 until 05/08/2025 [facility] Work Phone: Comment on above: 1 Occurrences starti ng 05/08/2024 until 05/08/2025 End: 04-11-2025 MR Prostate WO and W contrast IV MRI PROSTATE WO/W IVCON Radiology Routine Prostate cancer (HCC) 1 Occurrences starting 03/12/2024 until 04/11/2025 [facility] Work Phone: Comment on above: 1 Occurrences starti ng 03/12/2024 until 04/11/2025 MR Prostate WO and W contrast IV MRI PROSTATE WO/W IVCON Radiology Routine Prostate cancer (HCC) 10/28/2024 11:31 AM EDT [facility] Work Phone: Patient Education [facility] Work Phone: Patient referral [facility] Work Phone: End: 02-13-2023 Radiologic examination pelvis 1/2 views XR PELVIS 1V AP Radiology Routine Abnormal x-ray of pelvis 1 Occurrences starting 01/14/2022 until 02/13/2023 [facility] Work Phone: Comment on above: 1 Occurrences starti ng 01/14/2022 until 02/13/2023 End: 09-26-2023 Standard ECG [facility] Comment on above: One Time for 1 Occur rences starting 09/26/2023 until 09/26/2023 End: 09-27-2023 Standard ECG [facility] Work Phone: Comment on above: One Time for 1 Occur rences starting 09/27/2023 until 09/27/2023 SURGICAL PATHOLOGY [facility] Work Phone: Comment on above: Release Upon Orderin g for 1 Occurrences starting 05/13/2024, 1 completed End: 05-17-2025 US Head and neck soft tissue US HEAD/NECK SOFT TISSUE OTHER Radiology Routine Neck mass 1 Occurrences starting 04/17/2024 until 05/17/2025 [facility] Work Phone: Comment on above: 1 Occurrences starti ng 04/17/2024 until 05/17/2025 XR Tibia and Fibula - right AP and Lateral XR TIBIA FIBULA 2V AP/LAT RIGHT Radiology Routine Other closed fracture of proximal end of right fibula, initial encounter 07/29/2024 4:28 PM EST [facility] Work Phone: End: 09-19-2025 XR Tibia and Fibula - right AP and Lateral XR TIBIA FIBULA 2V AP/LAT RIGHT Radiology Routine Other closed fracture of proximal end of right fibula, initial encounter 1 Occurrences starting 08/20/2024 until 09/19/2025 [facility] Work Phone: Comment on above: 1 Occurrences starti ng 08/20/2024 until 09/19/2025 [facility] Immunizations Immunization Date Immunization Notes Care Provider Fa cility 04-30-2024 COVID-19 vaccine, ag e 12+ yr (So Protect Me-Imimtek COMIRNAT) Brian Ahmadi APRN.[facility] Work Phone: [facility] 10-27-2020 Covid (Pfizer) [facility] 10-06-2020 Covid (Pfizer) [facility] 08-28-2018 tetanus toxoid, reduced diphtheria toxoid, and acellular pertussis vaccine, adsorbed Robert Ardon MD Work Phone: [facility] [place] Work Phone: 06-07-2017 influenza virus vaccine, unspecified formulation Mathew Cobian MD Work Phone: [facility] 06-25-2011 tetanus toxoid, reduced diphtheria toxoid, and acellular pertussis vaccine, adsorbed Robert Ardon MD Work Phone: [facility] Payers Date Payer Category Payer Medicare (Managed Care) [facility] [id number] 2024 Unknown [id number] 2024 Self-pay [id number] 2021 Medicaid [id number] 2021 Unknown 2021 Unknown [employer] HB ONLY x0000 2021-Present [id number] ATTN [facility] [address] Other x0000 [id number] 2021 Medicaid [employer]ICAID [id number] 2021-Present [phone] [address] [place] [address] Medicaid [id number] 2021 Medicaid [id number] 2021 Medicaid [id number] 2020 Medicare MEDICARE MEDICAR E A AND B [id number] 2020-Present [phone] [place] [address] Medicare [id number] 1992 Medicare [id number] 1992 Medicare [id number] 1965 Unknown [id number] 1967 Unknown [id number] 1967 Unknown [id number] Unknown [id number] Unknown [id number] Unknown [id number] Unknown [id number] Social History Date Type Detail Facility Start: 01-14-2022 End: 11-05-2024 Tobacco smoking status NHIS Smokes tobacco daily [facility] Start: 07-29-1993 End: 07-30-2023 History of tobacco use Cigarette Smoker [facility] Start: 09-30-2021 End: 01-14-2025 Alcohol intake Current drinker of alcohol (finding) [facility] Start: 05-19-2021 End: 12-20-2022 History SDOH Alcohol Frequency 4 [facility] Start: 05-19-2021 End: 12-20-2022 History SDOH Alcohol Std Drinks 2 [facility] Start: 09-22-2021 History SDOH Alcohol Comment 3/4 beers daily sometimes [facility] Start: 05-19-2021 End: 12-20-2022 History SDOH Social Connections Phone 5 [facility] Start: 05-19-2021 End: 06-07-2022 History SDOH Social Connections Get Together 98 [facility] Start: 05-19-2021 End: 06-07-2022 History SDOH Social Connections Jewish 1 [facility] Start: 05-19-2021 End: 12-20-2022 History SDOH Social Connections Living 7 [facility] Start: 05-19-2021 End: 12-20-2022 History SDOH Physical Activity DPW 0 [facility] Start: 05-19-2021 End: 06-07-2022 History SDOH Stress 3 [facility] Start: 02-21-2020 Education 21 [facility] Start: 04-16-2021 Tobacco Comment couple per day [facility] Start: 1965 Sex Assigned At Male [facility] Start: 02-15-2021 End: 06-07-2022 Exposure to SARS-CoV-2 (event) Not sure [facility] Work Phone: Start: 01-14-2022 End: 06-07-2022 Tobacco Comment Pt has cut back to 1/4 pack daily. [facility] Start: 02-27-2022 End: 02-28-2022 Tobacco smoking status NHIS Unknown if ever smoked [facility] Start: 11-02-[address] [facility] Start: 11-02-[address] [facility] Start: 11-02-2018 With Family [facility] Start: 12-04-[address] [facility] Start: 01-14-2022 End: 07-12-2024 Cigarettes smoked current (pack per day) - Reported 1 [facility] Start: 01-14-2022 End: 03-12-2024 Tobacco use and exposure Smokeless tobacco non-user [facility] Start: 12-20-2022 End: 07-12-2024 Social connection and isolation panel [facility] Do you belong to any clubs or organizations such as nondenominational groups, unions, fraternal or athletic groups, or school groups? No [facility] Are you now , , , , never or living with a partner? Never [facility] How often to you hav e a drink containing alcohol? Patient refused [facility] How many standard dr inks containing alcohol do you have on a typical day? 3 or 4 [facility] Do you feel stress - tense, restless, nervous, or anxious, or unable to sleep at night because your mind is troubled all the time - these days [OSQ] Rather much [facility] (I/We) worried wheth er (my/our) food would run out before (I/we) got money to buy more. Never true [facility] Start: 06-20-2021 Gender identity Identifies as male gender (finding) [facility] Start: 06-20-2021 Sexual orientation Heterosexual (finding) [facility] Start: 09-12-2023 End: 03-12-2024 Tobacco smoking status NHIS Ex-smoker [facility] Start: 07-29-1993 End: 07-30-2023 History of tobacco use Current smoker [facility] Start: 09-26-2023 Alcohol Comment 3-4 drinks/ week [facility] Start: 1965 Sex assigned at Not on file [facility] Start: 10-17-2023 Tobacco Comment Pt has cut back to 1/4 pack daily.Vaps off and on [facility] How often to you hav e a drink containing alcohol? 2-3 time sa week [facility] How often do you hav e 6 or more drinks on 1 occasion? Less than monthly [facility] How hard is it for y ou to pay for the very basics like food, housing, medical care, and heating Not very hard [facility] Do you feel stress - tense, restless, nervous, or anxious, or unable to sleep at night because your mind is troubled all the time - these days [OSQ] Only a little [facility] Start: 04-11-2019 Tobacco Comment quit - 1 week [facility] How often to you hav e a drink containing alcohol? 2-4 times a month [facility] How often do you hav e 6 or more drinks on 1 occasion? Monthly [facility] Do you feel stress - tense, restless, nervous, or anxious, or unable to sleep at night because your mind is troubled all the time - these days [OSQ] To some extent [facility] Start: 05-08-2024 Alcohol Comment 3/4 beers per week [facility] Sexual Orientation Diane archer [facility] Start: 07-20-2024 End: 11-05-2024 Sex Male (finding) [facility] Functional Status Date Assessment Result Facility 07-20-2024 Functional Status Independent Diane Sammy carlson [facility] 07-20-2024 Functional Status Standard Safet y ID band on, Call device within reach, Bed in low position, Wheels locked, Bedside Cart Locked [facility] 05-13-2024 Are you deaf, or do you have serious difficulty hearing No 05/13/2024 4:51 PM EDT Yuni Santoyo RN No [facility] 05-13-2024 Do you have serious difficulty walking or climbing stairs No 05/13/2024 4:51 PM EDT Yuni Santoyo RN No [facility] 05-13-2024 Do you have difficul ty dressing or bathing No 05/13/2024 4:51 PM EDT Yuni Santoyo RN No [facility] 05-13-2024 Because of a physica l, mental, or emotional condition, do you have difficulty doing errands alone such as visiting a physician's office or shopping No 05/13/2024 4:51 PM EDT Yuni Santoyo RN No [facility] 10-27-2014 Are you blind, or do you have serious difficulty seeing, even when wearing glasses No 10/27/2014 4:20 PM EDT Maricarmen Leahy RN No [facility] Mental Status Date Assessment Result Facility 07-20-2024 Mental Status Orientation Oriented x 4 [facility] 07-20-2024 Mental Status [facility] 05-13-2024 Because of a physica l, mental, or emotional condition, do you have serious difficulty concentrating, remembering, or making decisions No 05/13/2024 4:51 PM EDT Yuni Santoyo RN No [facility] Clinical Notes 03-18-2021 to 01-17-2025 Telephone Encounter - Renard Lo RN - 01/17/2025 3:19 PM EDTTelephone Encounter - Renard Lo RN - 01/17/2025 3:19 PM EDTIno Esqueda APRN.WRONG ADDRESS CLERK - 01/17/2025 10:30 AM EDT Note Date & Type Note Facility 01-17-2025 Telephone encount er Note Pt called and is notified of providers results and instructions. Pt voices understanding. Transferred to scheduled to set up appt with General Surgery. Renard Lo RN [facility] 01-17-2025 Miscellaneous Notes Formattin g of this [...] was just in to see Ino Esqueda BIODIESEL PLANT OPERATIONS ENGINEER today. He wanted to know what provider [...] fever. 10. : N/A Protocols used: Rectal Iwieeykp-SKEBD-VV documented in this encounter [facility] 01-17-2025 Telephone encount er Note CBC is stable. Schedule with general surgery for repeat scope FRANCIA. Complete antibiotics that were given for diverticulitis. Proceed to ER if fever, abdominal pain, rectal bleeding with no BM. [facility] 01-17-2025 Telephone encount er Note Protocol recommends see provider in 24 hours. Pt was just in to see Ino Esqueda BIODIESEL PLANT OPERATIONS ENGINEER today. He wanted to know what provider [...] fever. 10. : N/A Protocols used: Rectal Hrdcbiuj-PPWVZ-TD [facility] 01-17-2025 Note HNO ID: [id number] Author: ION ESQUEDA APRN.WRONG ADDRESS CLERK Service: ? Author Type: Nurse Practitioner Type: [...] 724.3, ICD10: G (more content not included)... [facility] 01-17-2025 History of Presen t illness Narrative [...] - CONSULT TO PAIN MGT Ino Esqueda APRN.WRONG ADDRESS CLERK documented in this encounter [facility] 01-14-2025 Telephone encount er Note Patient calling regarding medication question. Patient was seen in the office today for Diverticulitis and wants to know if he needs to take both antibiotics prescribed, Omnicef & Flagyl? He states that the last time he had Diverticulitis he was only prescribed one medication. Conferenced to [facility] clean in places operator Chris at phone number ([phone]) for assistance. Informed patient that if unable to reach anyone in the office to call back tomorrow during normal business hours, verbalized understanding. [facility] 01-14-2025 Miscellaneous Notes Formattin g of this note might be different from the original. Patient calling regarding medication question. Patient was seen in the office today for Diverticulitis and wants to know if he needs to take both antibiotics prescribed, Omnicef & Flagyl? He states that the last time he had Diverticulitis he was only prescribed one medication. Conferenced to [facility] clean in places operator Chris at phone number ([phone]) for assistance. Informed patient that if unable to reach anyone in the office to call back tomorrow during normal business hours, verbalized understanding. documented in this encounter [facility] 01-14-2025 Note HNO ID: [id number] Author: INO ESQUEDA APRN.WRONG ADDRESS CLERK Service: ? Author Type: Nurse Practitioner Type: [...] ICD10: L91.8 - CONSULT TO DERMATOLOGY Ino Esuqeda APRN.[facility] 01-14-2025 History of Presen t illness Narrative [...] L91.8 - CONSULT TO DERMATOLOGY Ino Esqueda APRN.WRONG ADDRESS CLERK documented in this encounter [facility] 01-10-2025 Telephone encount er Note Pt notified. Laura Whaley MA [facility] 01-10-2025 Miscellaneous Notes Formattin g of this [...] different. Teena Mcneil. documented in this encounter [facility] 01-10-2025 Telephone encount er Note OK to switch to Mary as ordered Mathew Cobian MD [facility] 01-10-2025 Telephone encount er Note Pt reports he is struggling with allergies. States he was tested and has allergies to everything. Reports no Shortness of Breath, no headache. Has drainage that bothers his ears. No ear pain. Reports the claritin really does not help with his allergies. Asking if pcp can order something different. Teena Mcneil. [facility] 12-25-2024 Note HNO ID: [id number] Author: GREYSON ELLSWORTH APRN.WRONG ADDRESS CLERK Service: ? Author Type: Nurse Practitioner Type: [...] Claritin follow up with pcp. Greyson Ellsworth APRN.WRONG ADDRESS CLERK History and Record Review Clinical information obtained [...] suggestive and no evidence on imaging - IT TECHNICAL SUPPORT SPECIALIST Disposition The patient was discharged. OTC Medications were advised: Tylenol as needed [facility] 12-25-2024 History of Presen t illness Narrative [...] Claritin follow up with pcp. Greyson Ellsworth APRN.WRONG ADDRESS CLERK History and Record Review Clinical information obtained [...] suggestive and no evidence on imaging - IT TECHNICAL SUPPORT SPECIALIST Disposition The patient was discharged. OTC Medications were advised: Tylenol as needed documented in this encounter [facility] 12-25-2024 Telephone encount er Note Patient calls [...] difficulty breathing, headache, rash Protocols used: Sore Cckpke-BUKVQ-HU [facility] 12-25-2024 Miscellaneous Notes Formattin g of this [...] difficulty breathing, headache, rash Protocols used: Sore Wtodjl-RXVYU-ES documented in this encounter [facility] 12-13-2024 Note HNO ID: [id number] Author: MATHEW COBIAN MD Service: ? Author [...] Past Histories independently gathered by the clinical operations support professionals and the remaining scribed note accurately describes [...] 13, 2024 11:42 AM. Laura Whaley MA [facility] 11-05-2024 Discharge summary [facility] 11-05-2024 Discharge summary Note Date/Time November 05, 2024 8:24pm [facility] Medical Records Department [address] [place] [id number] Emergency Department Summary 11/05/24 MR#: [id number] Acct: [id number] Name: GOOD DE LUNA Rep #:[id number] : 1965 59 From: Salvatore Watkins MD PCP: Dr. Mathew Cobian MD Status:CA E ER Location: ED HPI History of [...] 6 months ago, and everything appeared normal. [facility] Medical History Alcohol abuse Anxiety History of [...] 5 days if not improving. Print Language: Hungarian Disposition Disposition: Home, Self Care What to do if you have Problems For any increased pain, shortness of breath, bleeding, nausea or vomiting, chestpain, or any unexpected problems, contact your Primary Care Provider. Call [facility] ([phone]) or report to the closest Emergency Room. Call 911 if necessary. 11/05/242023 <Electronically signed by Salvatore Watkins MD> Cosigner Signature (if applicable): CC: Dr. Mathew Cobian MD ~ Signed [facility] Work Phone: [phone] [phone] Hospital Discharge instructions Additional Instructions Antibiotics as directed. Return with fever, increased pain or swelling of hard palate, new or worsening symptoms. Follow-up with ENT or a dentist in the next 3 to 5 days if not improving.[facility] Work Phone: [phone] 291-421504-11-2025 Telephone encounter Note* Telephone Encounter - Juju Alcala MA - 11/01/2024 8:20 AM EDT Left message to call office to advise patient of below. Juju Alcala MA [facility]04-11-2025 Miscellaneous Notes* Telephone Encounter - Juju Alcala [...] Good Fu 6 months documented in [facility]04-10-2025 Telephone encounter Note * Telephone Encounter - Renard Farias MA - 10/31/2024 12:36 PM EDT Left message on phone to return call to office. Renard Farias MA Per : Raphael Calderon Jr., MD Mri prostate shows no lesions Good Fu 6 months [facility]04-07-2025 History of Present illness Narrative* Yanet Tong [...] PATIENT PRESENTS WITH AN IMPLANTABLE OR ATTACHED SURVEYING TEACHER: No ALLERGIES: Reviewed and unchanged CONTRAST ALLERGY: NO. EXAM: MRI - CONTRAST TYPE: GROUP II PERIPHERAL IV DATA: Inpatient - refer to [facility] documentation RADIOLOGY DEPARTMENT: MR; Exam(s) Completed: Body: Prostate SIGNATURE: RT Amanda(Maria Del Rosario) PATIENT NAME: Good De Luna DATE: October 28, 2024 TIME: 11:05 AM documented in this encounterReg[facility]04-07-2025 NoteHNO ID: [id number] Author: YANET TONG RT (R) Service: Radiology [...] PATIENT PRESENTS WITH AN IMPLANTABLE OR ATTACHED SURVEYING TEACHER: No ALLERGIES: Reviewed and unchanged CONTRAST ALLERGY: NO. EXAM: MRI - CONTRAST TYPE: GROUP II PERIPHERAL IV DATA: Inpatient - refer to [facility] documentation RADIOLOGY DEPARTMENT: MR; Exam(s) Completed: Body: Prostate SIGNATURE: NICKY Patel) PATIENT NAME: Good De Luna DATE: October 28, 2024 TIME: 11:05 [facility]02-18-2025 Telephone encounter Note* Telephone Encounter - Bibi Liu - 09/10/2024 10:57 AM EST Nurse Froilan spoke to pt and he is scheduled for an MRI and will make a new follow up. Pt is in agreement with this. [facility]02-18-2025 Miscellaneous Notes* Telephone Encounter - Bibi Liu [...] on transport. Thank you. documented in this encounterReg[facility]02-18-2025 Telephone encounter Note * Telephone Encounter - Bibi Liu - 09/10/2024 9:41 AM EST Pt can't make his 11:10 appt today due to loss of transportation, his aide is his daughter and her children are sick. Pt is asking if there is any way he can have a virtual visit due to his immobility and dependence on transport. Thank you. [facility]02-03-2025 NoteHNO ID: [id number] Author: TAMMIE BENITEZ PA-C Service: ? Author Type: Physician Sample Tester Type: Progress Notes Filed: 08/26/2024 14:11 Note Text: Tammie Benitez PA-C Department of Orthopaedics Orthopaedics [address] [place] [address] Dept: [phone] Dept August 26, 2024 CHIEF COMPLAINT: Established [...] allergies. This note was partially generated using [employer] voice recognition system, and there may be some incorrect words, spellings, and punctuation that were not noted in checking the note before saving. [facility] History of Present illness Narrative* Tammie Benitez PA-C - 08/26/2024 2:08 PM EST Tammie Benitez PA-C Department of Orthopaedics Orthopaedics [address] [facility] [address] Dept: [phone] Dept August 26, 2024 CHIEF COMPLAINT: Established [...] allergies. This note was partially generated using [employer] voice recognition system, and there may be [...] fibula. New x-ray today. documented in this encounterReg[facility]02-03-2025 NoteHNO ID: [id number] Author: KEISHA RUGGIERO MA Service: ? Author Type: Petroleum Engineer Type: Progress Notes Filed: 08/26/2024 14:11 Note Text: AMB ROOMING INTAKE FLOWSHEET DATA Pain Pain Level: 4 Pain Location: Leg-Right Description: Aching Duration Amount of Time: (ongoing) Frequency: Continuous Intervention/Comfort measure: Other: See comment (none) Patient here today for 5 weeks 2 days post fracture right fibula. New x-ray today.[facility]02-03-2025 History of Present illness Narrative * Santino [...] PATIENT PRESENTS WITH AN IMPLANTABLE OR ATTACHED SURVEYING TEACHER: No RADIOLOGY DEPARTMENT: General X-ray: Exam(s) Completed: Lower Extremity X- Ray(s): Tibia Fibula, Right PERIPHERAL IV DATA: Not applicable SIGNED BY: Artie Oconnor August 26, 2024 10:41 AM documented in this encounterReg[facility]02-03-2025 NoteHNO ID: [id number] Author: SANTINO BARCLAY Tech Service: ? Author [...] PATIENT PRESENTS WITH AN IMPLANTABLE OR ATTACHED SURVEYING TEACHER: No RADIOLOGY DEPARTMENT: General X-ray: Exam(s) Completed: Lower Extremity X-Ray(s): Tibia Fibula, Right PERIPHERAL IV DATA: Not applicable SIGNED BY: Artie Oconnor August 26, 2024 10:41 [facility]01-14-2025 Telephone encounter Note* Telephone Encounter - Rola Riojas LPN - 08/06/2024 2:25 PM EST Patient notified. [facility]01-14-2025 Miscellaneous Notes* Telephone Encounter - Rola Riojas [...] 06, 2024 2:14 PM documented in this encounterReg[facility]01-14-2025 Telephone encounter Note * Telephone Encounter - Brian Ahmadi APRN.CNP - 08/06/2024 2:19 PM EST Please let the patient know that I have sent. The following approved medication requests have been transmitted electronically. Requested Prescriptions Pending Prescriptions Disp Refills citalopram (CELEXA) 40 mg tablet 90 tablet 3 Sig: Take 1 tablet by mouth once daily. Brian Daiana, FISHING ROD MARKER.WRONG ADDRESS CLERK [facility]01-14-2025 Telephone encounter Note* Telephone Encounter - Renard [...] Lo RN August 06, 2024 2:14 PM [facility]01-06-2025 NoteHNO ID: [id number] Author: TAMMIE BENITEZ PA-C Service: ? Author Type: Physician Sample Tester Type: Progress Notes Filed: 08/02/2024 08:23 Note Text: Tammie Benitez PA-C Department of Orthopaedics Orthopaedics [address] [facility] [address] Dept: [phone] Dept July 29, 2024 CHIEF COMPLAINT: New [...] mechanism of injury. He was seen at [facility] a few days after the injury, he [...] of the neck of the right fibula Operations Inspector: MARTIN Transcribe Date/Time: Aug 01 2024 4:07P [...] Psych (no depression, anxi (more content not included)...[facility]01-06-2025 History of Present illness Narrative* Tammie Benitez PA-C - 07/29/2024 4:44 PM EST Tammie Benitez PA-C Department of Orthopaedics Orthopaedics [address] [facility] [address] Dept: [phone] Dept July 29, 2024 CHIEF COMPLAINT: New [...] mechanism of injury. He was seen at [facility] a few days after the injury, he [...] of the neck of the right fibula Operations Inspector: PSCB Transcribe Date/Time: Aug 01 2024 4:07P [...] anxiety) This note was partially generated using [employer] voice recognition system, and there may be [...] Other: See comment (none) documented in this encounterReg[facility]01-06-2025 History of Present illness Narrative* Chuyita Lopez RT(R) - 07/29/2024 4:10 PM EST [...] PATIENT PRESENTS WITH AN IMPLANTABLE OR ATTACHED SURVEYING TEACHER: No RADIOLOGY DEPARTMENT: General X-ray: Exam(s) Completed: Lower Extremity X- Ray(s): Tibia Fibula, Right PERIPHERAL IV DATA: Not applicable SIGNED BY: RT Anil(R) July 29, 2024 7:34 PM documented in this encounterRegency [facility]01-06-2025 NoteHNO ID: [id number] Author: CHUYITA LOPEZ RT(R) Service: ? Author [...] PATIENT PRESENTS WITH AN IMPLANTABLE OR ATTACHED SURVEYING TEACHER: No RADIOLOGY DEPARTMENT: General X-ray: Exam(s) Completed: Lower Extremity X-Ray(s): Tibia Fibula, Right PERIPHERAL IV DATA: Not applicable SIGNED BY: RT Anil(R) July 29, 2024 7:[facility] NoteHNO ID: [id number] Author: KEISHA RUGGIERO MA Service: ? Author Type: Petroleum Engineer Type: Progress Notes Filed: 08/02/2024 08:23 Note Text: AMB ROOMING INTAKE FLOWSHEET DATA Risk Screening Do you have concerns about personal safety or safety in the home?: No Pain Pain Level: 5 Pain Location: (right lower leg) Description: Aching, Sharp Duration Amount of Time: 1 Duration Units: Weeks Frequency: Continuous Intervention/Comfort measure: Other: See comment (none)[facility]01-06-2025 NotePatient Outreach (PULMMN) GOOD DE LUNA ([id number]) 1965 M Date Time Provider Department 07/29/24 EMMA TURNER During your visit today, we recorded the following information about you: Allergies As of Date: 07/29/2024 (No Known Allergies) Date Reviewed: 07/29/2024 Reviewed by: Keisha Ruggiero MA - Fully Assessed Visit Diagnosis:Tobacco abuse [Z72.0] Order(s):CONSULT LUNG CANCER SCREENING CLINIC [[id number]] Order #: [id number]: 1 FUTURE Prescriptions as of 08/01/2024 - [...] 05/12/2024 Encounter Status:Closed by EDGAR PRODUSER on 08/01/24[facility] 07-25-2024 History of Present illness Narrative* Mathew Cobian MD - 07/25/2024 10:40 AM EST Chief Complaint Patient presents with: Hospital Follow Up HPI Good De Luna is a 59 year old male who presents here today for ER Follow Up.. Pt was in [facility] ER on 07/22/24 for closed fx [...] fax number to fax letter. Fax number [phone], ATTN: Karie. Case #: [id number]. Notes some sinus drainage and cough, wondering [...] leg. He states that he went to [facility] had an x-ray obtained and was told [...] Past Histories independently gathered by the clinical operations support professionals and the remaining scribed note accurately describes [...] AM. Mick Youngblood MA documented in this encounterRegency [facility]01-02-2025 NoteHNO ID: [id number] Author: MATHEW COBIAN MD Service: ? Author Type: Physician Type: Progress Notes Filed: 07/25/2024 11:12 Note Text: Chief Complaint Patient presents with: Hospital Follow Up HPI Good De Luna is a 59 year old male who presents here today for ER Follow Up.. Pt was in [facility] ER on 07/22/24 for closed fx [...] fax number to fax letter. Fax number [phone], ATTN: Karie. Case #: [id number]. Notes some sinus drainage and cough, wondering [...] leg. He states that he went to [facility] had an x-ray obtained and was told [...] 50 PLUS M (more content not included)... [facility]12-31-2024 Telephone encounter Note* Telephone Encounter - Keisha Ruggiero MA - 07/23/2024 1:34 PM EST I called and spoke with the patient. Advised no providers in the [place] office until 07/29/2024. Patient scheduled appointment. [facility]12-31-2024 Miscellaneous Notes* Telephone Encounter - Keisha Ruggiero MA - 07/23/2024 1:34 PM EST I called and spoke with the patient. Advised no providers in the [place] office until 07/29/2024. Patient scheduled appointment. * Telephone Encounter - Sofia Chung MA - 07/23/2024 12:47 PM EST Patient transferred. Patient states he was told by [facility] ED he has a fracture and needs to be seen byorthopedics by Monday. Patient unable to stay on hold for scheduling. Please advise Sofia Chung MA * Telephone Encounter - Ashlyn London RN - 07/23/2024 12:34 PM EST Pt scheduled [facility] ER f/u. 07-22-24. Reports has closed fx of fibula proximal right, and instructed to f/u with pcp and also ortho by the end of the week. Transferred to Ortho per pt request. documented in this encounterRegency Hospital [facility]12-31-2024 Telephone encounter Note * Telephone Encounter - Ashlyn London RN - 07/23/2024 12:52 PM EST Pt phoned in for another reason and given provider's message below with verbalized understanding. Pt agreeable. [facility]12-31-2024 Miscellaneous Notes* Telephone Encounter - Ashlyn London RN - 07/23/2024 12:52 PM EST Pt phoned in for another reason and given provider's message below with verbalized understanding. Pt agreeable. * Telephone Encounter - Mick Youngblood MA - 07/22/2024 12:56 PM EST [employer] message sent to pt asking for a [...] placed Brian Ahmadi APRN.CNP documented in this encounterRegency Hospital [facility]12-31-2024 Telephone encounter Note * Telephone Encounter - Sofia Chung MA - 07/23/2024 12:47 PM EST Patient transferred. Patient states he was told by [facility] ED he has a fracture and needs to be seen byorthopedics by Monday. Patient unable to stay on hold for scheduling. Please advise Sofia Chung MA [facility]12-31-2024 Telephone encounter Note* Telephone Encounter - Ashlyn London RN - 07/23/2024 12:34 PM EST Pt scheduled [facility] ER f/u. 07-22-24. Reports has closed fx of fibula proximal right, and instructed to f/u with pcp and also ortho by the end of the week. Transferred to Ortho per pt request. [facility]12-30-2024 Telephone encounter Note* Telephone Encounter - Mick Youngblood MA - 07/22/2024 12:56 PM EST [employer] message sent to pt asking for a return call to office regarding his recent lab results. Pt notified office has attempted to reach him with VM left. Mick Youngblood MA [facility]12-28-2024 Hospital Discharge instructions Patient Education 07/20/2024 16:12:45 [...] thin towel or cloth. You may use drpl-xkv-fzsebsa pain medicine (NSAIDS or nonsteroidal anti- inflammatory [...] is irritated You re-injure your ankle [employer]. [address] [place] [address]. All rights reserved. This information is not [...] above the level of your heart. Medicines Czof-qyc-ienrpgf medicines such as acetaminophen or ibuprofen can [...] an injured limb if it hurts. [employer]. [address] [place], [place] [address]. All rights reserved. This information is not intended as a substitute for professional medical care. Always follow yourhealthcare professional's instructions. Follow Up Care 07/20/2024 14:16:50 With:KARAN SRINIVASAN DO Orthopedic Address: [facility] [address] [phone] When:3-5 days With:Go to emergency room if symptoms worsen Address:Unknown When:2-4 days With:MATHEW COBIAN MD Address: [address] [place] [address]- When:2-4 days [facility] 12-28-2024 Note Discharge Instructions Thank you for allowing [facility] to assist you with your healthcare needs. [...] KARAN SRINIVASAN DO Orthopedic When:Within 3-5 days Where:[facility] [address] [address] [phone] Follow Up with Go to emergency room if symptoms worsen When:Within 2-4 days Follow Up with MATHEW COBIAN MD When:Within 2-4 days Where:[address] [place] [address]- Allergies No Known Medication Allergies [...] thin towel or cloth. You may use clfd-xtz-xacgycq pain medicine (NSAIDS or nonsteroidal anti- inflammatory [...] or is irritated You re-injure your ankle [phone] [employer]. [address] [place] [address]. All rights reserved. This information is not [...] above the level of your heart. Medicines Tfim-tdr-wngdvao medicines such as acetaminophen or ibuprofen can [...] on an injured limb if it hurts. [phone] [employer]. [address] [place] [address]. All rights reserved. This information is not intended as a substitute for professional medical care. Always follow yourhealthcare professional's instructions. Additional Information VACCINATE! IT SAVES LIVES! Members of the community who have not yet received the COVID-19 vaccine and would like to receive it can visit one of [facility] vaccine clinics. There are many vaccine clinic locations within the [facility]. For locations and available times, please visit www.gettheshot.coronavirus.[place].gov/. It is important to note that some COVID mobile vaccine clinics are held outdoors and may be canceled in rainy or stormy conditions. To learn more about pediatric vaccinations (ages 5-11), we invite you to visit the [facility] webpage. https://www.[email or web address]/pages/[email or web address]-Gzzxw-Kdblvjjmbjx-Ptwabujvah-Vzull-Wzb stions.htmlTo learn more about the COVID-19 vaccine, we invite you to visit the CDC website for a list of frequently asked questions. https://www.cdc.gov/coronavirus/2019-ncov/vaccines/faq.html [facility] Patient Portal Access Instructions: Stay connected with your healthcare team and access your personal medical information anytime with the [facility] Patient Portal. If you would like a full copy of your medical records please contact the [facility] Medical Records Department Monday through Monday between 8a.m. and 4:30p.m. Please follow the directions below to access the portal: 1.Access the email account you provided upon registration to the [facility].2.Look for an invitation email from [facility].3.Open the email and access the invitation link: Accept Invitation to [facility]4.Fill in the required casillas to create your [...] you will allow to register on the [facility] Patient Portal for access to your information. You can also access the [facility] Patient Portal on the [employer] tabitha. Simply click on Health Records under cheerapp and then click on the Diane logo. [...] Call your local pharmacy or go to [email or web address]/[email or web address] to find one close to you.3.Make use of household items: Use cat litter or old coffee grounds to dispose medications if other options arenot available. Mix your drugs with these household products, seal them in an airtight container andthrow it into the garbage. [facility]: [phone] to be sure your drugs can be [...] aware that I should contact my doctor. Patient/Inspector Assembly Signature: Date/Time: Relationship to Patient: Witness Name/Signature: Date/Time: [facility]12-28-2024 Note* Exam Date Time Procedure Performing Provider Status 07/20/24 3:35 PM XR Tibia/Fibula 2 Views Right LARRY KASPER MD; Auth (Verified) [id number] ORIGINAL EXAMINATION: 6 XRAY VIEWS OF THE [...] Sign Date: 07/20/2024 3:56:28 PM Ordering Provider: [facility]12-28-2024 Note* Exam Date Time Procedure Performing Provider Status 07/20/24 3:35 PM XR Ankle and Foot 6 Views Right LARRY ZARATE MD; Auth (Verified) [id number] ORIGINAL EXAMINATION: 6 XRAY VIEWS OF THE [...] Sign Date: 07/20/2024 3:56:28 PM Ordering Provider: [facility]12-26-2024 Telephone encounter Note* Telephone Encounter - Levi Paniagua LPN - 07/18/2024 12:29 PM EST Left message for pt to contact office. Levi Paniagua LPN [facility]12-26-2024 Telephone encounter Note* Telephone Encounter - Brian [...] 6 weeks. Labs placed Brian Ahmadi APRN.CNP [facility]12-20-2024 History of Present illness Narrative* Brian Ahmadi [...] needed. This note was partly generated using [employer] voice recognition dictation and may contain some misspelled or inaccurate words missed on review. documented in this encounterRegency Hospital [facility]12-20-2024 NoteHNO ID: [id number] Author: BRIAN AHMADI APRN.CNP Service: ? Author [...] labs, EEG to finish workup. Brian Ahmadi APRN.WRONG ADDRESS CLERK RTO in 6 months, sooner if needed. This note was partly generated using [employer] voice recognition dictation and may contain some misspelled or inaccurate words missed on review.[place] [address]-20-2024 Instructions* Patient Instructions* Brian Ahmadi APRN.CNP - 07/12/2024 10:56 AM EST Ativan refill sent Get labs to assess TSH Complete labs and EEG that was ordered by neurology Schedule with neurosurgery See us back in 6 months. Brian Ahmadi APRN.CNP documented in this encounterRegency Hospital [facility]12-05-2024 Telephone encounter Note * Telephone Encounter - Gypsy Syed APRN.CNP - 06/27/2024 8:11 AM EST Form has been completed and ready for pickling grader. Patient has been notified. Gypsy Syed APRN.CNP [facility] Work Phone: [phone]) 800-263912-05-2024 Miscellaneous Notes* Telephone Encounter - Gypsy Syed APRN.CNP - 06/27/2024 8:11 AM EST Form has been completed and ready for pickling grader. Patient has been notified. Gypsy Syed APRN.CNP [...] moving in a week. Patient wants to pickling grader form when completed please. * Telephone Encounter [...] Scarlet Carvajal LPN * Telephone Encounter - Laura Whaley MA - 06/10/2024 10:08 AM EST Pt dropped off form from [facility] stating that pt is requesting either 1) change in rules, policies, practices or services (due to a disability) to afford him/her full enjoyment of the premises or 2) a physical change (due to disability) to afford him/her full enjoyment of premises. Laura Whaley MA documented in this encounterRegency Hospital [facility]11-26-2024 Telephone encounter Note * Telephone Encounter - Meena Garcia LPN - 06/18/2024 4:16 PM EST Patient is calling re: status of form. Needing FRANCIA or will have to pay extra $300 that he does nothave. Meena Garcia LPN [facility]11-22-2024 Telephone encounter Note* Telephone Encounter - Saniya Santoro LPN - 06/14/2024 2:19 PM EST Patient calling to see if form is completed, he is moving in a week. Patient wants to pickling grader form when completed please. [facility]11-21-2024 Telephone encounter Note* Telephone Encounter - Laura Whaley MA - 06/13/2024 12:00 PM EST See phone note 06/10/24. Laura Whaley MA [facility]11-21-2024 Telephone encounter Note* Telephone Encounter - Laura Whaley MA - 06/13/2024 12:00 PM EST 06/06/24 he dropped a form off in the main lobby for pcp to complete. The form was to allow pt to have an emotional support cat without paying a pet fee. Pt asking if this is complete & has it been sent off yet? Scarlet Carvajal LPN [facility]11-21-2024 Miscellaneous Notes* Telephone Encounter - Laura Whaley MA - 06/13/2024 12:00 PM EST See phone note 06/10/24. Laura Whaley MA * Telephone Encounter - Scarlte Carvajal LPN - 06/12/2024 2:19 PM EST Pt states on 06/06/24 he dropped a form off in the main lobby for pcp to complete. The form was to allow pt to have an emotional support cat without paying a pet fee. Pt asking if this is complete & has it been sent off yet? Scarlet Carvajal LPN documented in this encounterRegency Hospital [facility]11-20-2024 Telephone encounter Note * Telephone Encounter - [...] been sent off yet? Scarlet Carvajal LPN [facility]11-18-2024 Telephone encounter Note* Telephone Encounter - Laura Whaley MA - 06/10/2024 10:08 AM EST Pt dropped off form from [facility] stating that pt is requesting either 1) change in rules, policies, practices or services (due to a disability) to afford him/her full enjoyment of the premises or 2) a physical change (due to disability) to afford him/her full enjoyment of premises. Laura Whaley MA [facility]11-15-2024 Telephone encounter Note* Telephone Encounter - Rylie Wing - 06/07/2024 10:33 AM EST Order for Consult to Neurosurgery needs to be edited. Diagnoses is only pulling general neurology providers instead of cerebrovascular providers. Currently unable to schedule. Please contact patient when completed. Thank you, Rylie Wing [facility]11-15-2024 Miscellaneous Notes* Telephone Encounter - Rylie Wing - 06/07/2024 10:33 AM EST Order for Consult to Neurosurgery needs to be edited. Diagnoses is only pulling general neurology providers instead of cerebrovascular providers. Currently unable to schedule. Please contact patient when completed. Thank you, Rylie Wing documented in this encounterRegency Hospital [facility] East11-15-2024 Telephone encounter Note * Telephone Encounter - Calixto Chandler RN - 06/07/2024 10:22 AM EST Caregiver calling with physician referral: Patient referred to Neurosurgery Department. Caregiver reports patient denies any new or worsening symptoms of which a provider is not aware:Yes Caregiver Rylie transferred to [facility] in appointment center for ordered neurosurgery consult. [facility]11-15-2024 Miscellaneous Notes* Telephone Encounter - Calixto Chandler RN - 06/07/2024 10:22 AM EST Caregiver calling with physician referral: Patient referred to Neurosurgery Department. Caregiver reports patient denies any new or worsening symptoms of which a provider is not aware:Yes Caregiver Rylie transferred to [facility] in appointment center for ordered neurosurgery consult. documented in this encounterRegency Hospital [facility]11-11-2024 Telephone encounter Note * Telephone Encounter - Devi Cisse MD - 06/03/2024 3:27 PM EST Please make sure he comes for follow up visit ,he may need help scheduling tests and orders First visit is virtual visit [facility] Work Phone: 1(109) 628-304311-11-2024 Miscellaneous Notes* Telephone Encounter - Devi Cisse [...] logging in for apt. documented in this encounterRegency Hospital [facility] East11-11-2024 NoteHNO ID: [id number] Author: DEVI CISSE MD Service: ? Author Type: Physician Type: Progress Notes Filed: 06/09/2024 10:26 Note Text: [facility] [place] June 03, 2024 New Patient VIRTUAL VISIT PROGRESS NOTE This is a virtual visit using Waizyom Video Visit. It required patient-provider interaction for the medical decision making as documented below. I have communicated my name and active licensure. The patient's identity and physical location were verified at the time of this visit. Either the patient or their legal student services representative has been informed of the risks [...] or syncopal episodes He was admitted in [facility] and had an MRI Brain and found [...] ASSESSMENT: (R41.0) Confusion (primary encounter diagnosis) PLAN: [facility] on 06/03/24 VITAMIN B12 THYROID STIMULATING HORMONE FOLATE, SERUM METHYLMALONIC ACID MAGNESIUM CONSULT TO NEUROSURGERY EPIL EEG ROUTINE *Canceled* EPIL EEG ROUTINE There are no Patient Instructions on file for this visit. I spent a total of 55 minutes on the date of the service which included preparing to see the patient, opqy-vb-tvjk patient care, completing clinical documentation, obtaining and/or [...] mcg tablet Ta (more content not included)... [facility]11-11-2024 History of Present illness Narrative* Devi Cisse MD - 06/03/2024 3:04 PM EST Images from the original note were not included. [facility] [place] June 03, 2024 New Patient VIRTUAL VISIT PROGRESS NOTE This is a virtual visit using Hover 3D Zoom Video Visit. It required patient- provider interaction for the medical decision making as documented below. I have communicated my name and active licensure. The patient's identity and physical location wereverified at the time of this visit. Either the patient or their legal student services representative has been informed of the risks [...] or syncopal episodes He was admitted in [facility] and had an MRI Brain and found [...] ASSESSMENT: (R41.0) Confusion (primary encounter diagnosis) PLAN: [facility] on 06/03/24 VITAMIN B12 THYROID STIMULATING HORMONE FOLATE, SERUM METHYLMALONIC ACID MAGNESIUM CONSULT TO NEUROSURGERY EPIL EEG ROUTINE *Canceled* EPIL EEG ROUTINE There are no Patient Instructions on file for this visit. I spent a total of 55 minutes on the date of the service which included preparing to see the patient, oevi-av-vgkv patient care, completing clinical documentation, obtaining and/or [...] of ... COLONOSCOPY DIAGNOSTIC Result Date: 05/13/2024 [facility] Gastrointestinal Endoscopy Patient Name: Good De Luna Procedure Date: 05/13/2024 8:00 AM Date of : 1965 Admit Type: Outpatient Age: 58 Room: [facility] Gender: Male Note Status: Finalized Attending MD: Gilson Bar , , [id number] Procedure: Colonoscopy Indications: Evaluation of unexplained GI [...] physician, the nurse, the anesthesiologist and the colon and rectal surgeon in the pre-procedure area in the endoscopy [...] clip was successfully placed (MR safe). Clip sponsorship coordinator: [employer]. There was no bleeding at the end [...] cold biopsy forceps. Resected and retrieved. Clip sponsorship coordinator: [employer]. Clip(MR safe) was placed. - Eight 1 [...] present medications. Procedure Code(s): --- Professional --- 79792, Colonoscopy, flexible; with removal of tumor(s), polyp(s), or other lesion(s) by snare technique 53407, 59, Colonoscopy, flexible; with biopsy, single or multiple 84810, Colonoscopy, flexible; with directed submucosal injection(s), any substance Diagnosis Code(s): --- Professional --- K64.9, Unspecified hemorrhoids D12.2, Benign neoplasm of ascending colon D12.5, Benign neoplasm of sigmoid colon D12.8, Benign neoplasm of rectum K92.1, Melena (includes Hematochezia) K57.30, Diverticulosis of large intestine without perforation or abscess without bleeding CPT copyright 2020 [employer]. All rights reserved. The codes documented in this report are preliminary and upon slime plant operator review may be revisedto meet current compliance [...] 0 min Stress: Stress Concern Present (04/30/2024) [place] [employer] - Occupational Stress Questionnaire Feeling of Stress : To some extent Social Connections: Socially Isolated (04/30/2024) Social Connection and Isolation Panel [NHANES] Frequency of Communication with Friends and Family: More than three times a week Frequency of Social Gatherings with Friends and Family: More than three times a week Attends [employer] Services: Never Active Member of Clubs or [...] Year: No Utilities: Not At Risk (05/13/2024) [facility] Utilities Threatened with loss of utilities: No Area Deprivation Index: High Risk (08/15/2023) Area Deprivation Index National Score (1-100), lower number is lower risk: 75 State Score (1-10), lower number is lower risk: 6 Data from: https://www.neighborhoodatlas.[facility]/. Last address used for calculation: [address] Diagnosis: (R41.0) Confusion (primary encounter diagnosis) IMP/PLAN: Good De Luna is 58 year old male, here today for episodes of confusion . MRI Brain showed venous anomaly Will do EEG r/o seizure [facility] on 06/03/24 VITAMIN B12 THYROID STIMULATING HORMONE FOLATE, SERUM METHYLMALONIC ACID MAGNESIUM CONSULT TO NEUROSURGERY EPIL EEG ROUTINE *Canceled* EPIL EEG ROUTINE Devi Cisse MD [facility] [place] Department of Neurology Total time in minutes spent with patient, reviewing records, labs, imaging, formulating plan, and documentin minutes with more than 50% of the time spent in patient education/counselling/coordinating care with the patient and /or family. documented in this encounterRegency Hospital [facility]11-11-2024 Telephone encounter Note * Telephone Encounter - Sofia Munoz MA - 06/03/2024 2:43 PM EST Talk to patient he already answered precheck in questions, I told him if I don't see he logged in Iwill give him a call to help [facility]11-11-2024 Telephone encounter Note* Telephone Encounter - Sofia Munoz MA - 06/03/2024 2:08 PM EST Left VM letting patient know he has an virtual apt. With Dr. Cisse at 3 pm and that I will try calling closer to 3 pm to see if help is needed with logging in for apt. [facility]10-30-2024 NoteHNO ID: [id number] Author: JENNIFER MCGHEE APRN.WRONG ADDRESS CLERK Service: ? Author Type: Nurse Practitioner Type: Progress Notes Filed: 05/22/2024 14:48 Note Text: FOLLOW UP VISIT - ENDOSCOPY Good De Luna 1965 [id number] REFERRING PHYSICIAN: No referring provider defined for [...] cold biopsy forceps. Resected and retrieved. Clip sponsorship coordinator: [employer]. Clip (MR safe) was placed. - Eight [...] as needed for worsening/no improvement. Jennifer Mcghee APRN.[facility]10-30-2024 History of Present illness Narrative* Jennifer Mcghee APRN.WRONG ADDRESS CLERK - 05/22/2024 1:33 PM EDT FOLLOW UP VISIT - ENDOSCOPY Good De Luna 1965 [id number] REFERRING PHYSICIAN: No referring provider defined for [...] cold biopsy forceps. Resected and retrieved. Clip sponsorship coordinator: [employer]. Clip (MR safe) was placed. - Eight [...] improvement. Jennifer Mcghee APRN.PATTIE documented in this encounterRegency Hospital [facility]10-25-2024 Instructions* Patient Instructions* Prema Turner APRN.PATTIE - [...] with your family doctor. documented in this encounterRegency Hospital [facility]10-25-2024 NoteHNO ID: [id number] Author: PREMA TURNER APRN.CNP Service: ? Author Type: Nurse Practitioner Type: Progress Notes Filed: 05/17/2024 13:10 Note Text: This note was created using StatSims.comriter. Subjective Good De Luan is a 58 year old male. HPI [...] increased swelling, redness, or fever. Prema Turner APRN.[facility] History of Present illness Narrative* Prema Turner APRN.PATTIE - 05/17/2024 12:51 PM EDT Images from the original note were not included. This note was created using pickrset. Subjective Good De Luna is a 58 [...] increased swelling, redness, or fever. Prema Turner APRN.WRONG ADDRESS CLERK documented in this encounterRegency Hospital [facility]10-24-2024 Telephone encounter Note * Telephone Encounter - Laura Whaley MA - 05/16/2024 4:33 PM EDT Mailed. Laura Whaley MA [facility]10-24-2024 Miscellaneous Notes* Telephone Encounter - Laura Whaley [...] updated letter. Please send to patient, via [facility]. Address verified. documented in this encounterRegency Hospital [facility]10-24-2024 Telephone encounter Note * Telephone Encounter - Mathew Cobian MD - 05/16/2024 4:24 PM EDT Letter done Mathew Cobian MD [facility]10-24-2024 Telephone encounter Note* Telephone Encounter - Ashlyn London RN - 05/16/2024 2:34 PM EDT Patient asking pcp to write an updated letter, stating he needs an emotional support animal. Reports he is moving and the place he's moving to needs an updated letter. Please send to patient, via [employer]. Address verified. [facility]10-22-2024 NoteHNO ID: [id number] Author: SP SAN RN Service: ? Author [...] questions, needs or concerns. Patient discharged from [facility] Discharge date: 05/13/24 Admitted for: Rectal bleeding Readmission Risk: 6 Value-Based Contract: ACO Contact: Contact made with patient: Yes Hi, my name is Sp San RN and I am calling from the [facility] on behalf of your Primary Care Provider, [...] like to speak with a social work steamfitter supervisor to help give you support for any [...] I will send your request to a medical scheduler who will contact and assist you with [...] Sp San RN May 14, 2024 2:25 [facility]10-22-2024 History of Present illness Narrative* Sp San [...] questions, needs or concerns. Patient discharged from [facility] Discharge date: 05/13/24 Admitted for: Rectal bleeding Readmission Risk: 6 Value-Based Contract: ACO Contact: Contact made with patient: Yes Hi, my name is Sp San RN and I am calling [facility] the [facility] on behalf of your Primary Care Provider, [...] like to speak with a social work steamfitter supervisor to help give you support for any [...] I will send your request to a medical scheduler who will contact and assist you with [...] 14, 2024 2:25 PM documented in this encounterRegency Hospital [facility] East10-22-2024 NotePatient Outreach ([facility]) GOOD DE LUNA ([id number]) 1965 M Date Time Provider Department 05/14/24 [...] questions, needs or concerns. Patient discharged from [facility] Discharge date: 05/13/24 Admitted for: Rectal bleeding Readmission Risk: 6 Value-Based Contract: ACO Contact: Contact made with patient: Yes Hi, my name is Sp R Bann, RN and I am calling from the [facility] on behalf of your Primary Care Provider, [...] like to speak with a social work steamfitter supervisor to help give you support for any [...] I will send your request to a medical scheduler who will contact and assist you with [...] As Of Date 04/24 (more content not included)...[facility]10-21-2024 Nurse Note* Patricia Bai, RN - 05/13/2024 10:49 AM EDT Other: 1020- made aware of Pt's HR. Orders received. 1040- Dr. Hutton iupdated on patient's HR. 1045- Pt c/o chest heaviness. Dr. Hutton at bedside. No new orders. Per Dr. Hutton patient ok to send to the floor. [facility]10-21-2024 Nurse Note* Patricia Bai, RN - 05/13/2024 10:49 AM EDT Other: 1020- made aware of Pt's HR. Orders received. 1040- Dr. Hutton iupdated on patient's HR. 1045- Pt c/o chest heaviness. Dr. Hutton at bedside. No new orders. Per Dr. Hutton patient ok to send to the floor. documented in this encounterRegency Hospital [facility] East10-21-2024 Attending History and physical note* Gilson Bar [...] Resolved Resolved By Diverticulitis 04/30/2024 Brian Ahmadi, FISHING ROD MARKER.WRONG ADDRESS CLERK No Recurrent major depressive disorder, remission status unspecified ([facility]) 10/17/2023 Mathew Cobian MD No Prostate cancer [...] stenosis of lumbar region 12/12/2017 Brian Ahmadi APRN.WRONG ADDRESS CLERK No Overview Signed 12/12/2017 7:47 AM by Brian Ahmadi (Seafood Packer) MRI 11/2017 [facility] Thoracic or lumbosacral neuritis or radiculitis, [...] discussed with the Patient or Patient's Authorized Inspector Assembly. Asapplicable, any other physician, advance practice provider, medical student, or other health professional student that will be observing or involved in the sensitive examination for educational or training purposes was discussed with the Patient or Authorized Inspector Assembly. The Patient or Authorized Inspector Assembly has agreed to proceed with the sensitive [...] CC: Mathew Cobian MD CC: Brian Ahmadi [facility] Work Phone: [phone]) 859-593710-21-2024 History and physical note* Gilson Bar DO [...] Resolved Resolved By Diverticulitis 04/30/2024 Brian Ahmadi APRN.WRONG ADDRESS CLERK No Recurrent major depressive disorder, remission status unspecified ([facility]) 10/17/2023 Mathew Cobian MD No Prostate cancer ([facility]) 10/17/2023 Mathew Cobian MD No Congenital diplegia (HCC) 05/27/2021 BeHaylie dubois, PT, DPT No Spasticity 05/27/2021 Haylie Cornelius, PT, DPT No Costochondritis 05/27/2021 Haylie Cornelius, PT, DPT No Localized osteoporosis ([place]) 05/27/2021 Haylie Cornelius, PT, DPT No Cerebral palsy ([facility]) Mathew Cobian MD No Nicotine use disorder, F17.2 02/11/2019 Zabrina Cevallos DO No Back pain 02/10/2019 Zabrina Cevallos, DO No Chronic bilateral low back pain with right-sided sciatica 01/10/2018 Ray Giraldo PA-C No Spinal stenosis of lumbar region 12/12/2017 Brian Ahmadi, KALEB.WRONG ADDRESS CLERK No Overview Signed 12/12/2017 7:47 AM by Brian Ahmadi (Seafood Packer) MRI 11/2017 [facility] Thoracic or lumbosacral neuritis or radiculitis, [...] discussed with the Patient or Patient's Authorized Inspector Assembly. Asapplicable, any other physician, advance practice provider, medical student, or other health professional student that will be observing or involved in the sensitive examination for educational or training purposes was discussed with the Patient or Authorized Inspector Assembly. The Patient or Authorized Inspector Assembly has agreed to proceed with the sensitive [...] MD CC: Brian Ahmadi documented in this encounterRegency Hospital [facility] East10-20-2024 NoteHNO ID: [id number] Author: ANGELIKA GONZALEZ MD Service: General Surgery Author Type: Physician Type: Progress Notes Filed: 05/12/2024 16:57 Note Text: Direct admit by Dr. Bar for [facility] bleedingJoint [facility] [id number] Instructions* Patient Instructions* Gilson Bar DO - [...] am on dialysis? A: Please consult your supervisor laundry prior to scheduling to get instructions pertinent [...] rest of the day. documented in this encounterRegency Hospital [facility] East10-16-2024 History and physical note * Gilson Bar [...] Resolved Resolved By Diverticulitis 04/30/2024 Brian Ahmadi APRN.WRONG ADDRESS CLERK No Recurrent major depressive disorder, remission status unspecified ([facility]) 10/17/2023 Mathew Cobian MD No Prostate cancer (HCC) 10/17/2023 Mathew Cobian MD No Congenital diplegia (HCC) 05/27/2021 Bebb Haylie, PT, DPT No Spasticity 05/27/2021 BebbHaylie, PT, DPT No Costochondritis 05/27/2021 BeHaylie dubois, PT, DPT No Localized osteoporosis ([place]) 05/27/2021 BeHaylie dubois, PT, DPT No Cerebral palsy (HCC) Mathew Cobian MD No Nicotine use disorder, F17.2 02/11/2019 Zabrina Cevallos, DO No Back pain 02/10/2019 Zarbina Cevallos, DO No Chronic bilateral low back pain with right-sided sciatica 01/10/2018 Ray Giraldo, KEILA No Spinal stenosis of lumbar region 12/12/2017 Brian Ahmadi APRN.WRONG ADDRESS CLERK No Overview Signed 12/12/2017 7:47 AM by Brian Ahmadi (Seafood Packer) MRI 11/2017 [facility] Thoracic or lumbosacral neuritis or radiculitis, [...] discussed with the Patient or Patient's Authorized Inspector Assembly. Asapplicable, any other physician, advance practice provider, medical student, or other health professional student that will be observing or involved in the sensitive examination for educational or training purposes was discussed with the Patient or Authorized Inspector Assembly. The Patient or Authorized Inspector Assembly has agreed to proceed with the sensitive [...] CC: Mathew Cobian MD CC: Brian Ahmadi [facility]10-16-2024 History and physical note* Gilson Bar DO [...] Resolved Resolved By Diverticulitis 04/30/2024 Brian Ahmadi APRN.WRONG ADDRESS CLERK No Recurrent major depressive disorder, remission status unspecified ([facility]) 10/17/2023 Mathew Cobian MD No Prostate cancer ([facility]) 10/17/2023 Mathew Cobian MD No Congenital diplegia (HCC) 05/27/2021 BebbHaylie, PT, DPT No Spasticity 05/27/2021 BeHaylie dubois, PT, DPT No Costochondritis 05/27/2021 BeHaylie dubois, PT, DPT No Localized osteoporosis ([place]) 05/27/2021 Haylie Cornelius, PT, DPT No Cerebral palsy ([facility]) Mathew Cobian MD No Nicotine use disorder, F17.2 02/11/2019 Zabrina Cevallos, DO No Back pain 02/10/2019 Zabrina Cevallos, DO No Chronic bilateral low back pain with right-sided sciatica 01/10/2018 Ray Giraldo, KEILA No Spinal stenosis of lumbar region 12/12/2017 Brian Ahmadi APRN.WRONG ADDRESS CLERK No Overview Signed 12/12/2017 7:47 AM by Brian Ahmadi (Seafood Packer) MRI 11/2017 [facility] Thoracic or lumbosacral neuritis or radiculitis, [...] discussed with the Patient or Patient's Authorized Inspector Assembly. Asapplicable, any other physician, advance practice provider, medical student, or other health professional student that will be observing or involved in the sensitive examination for educational or training purposes was discussed with the Patient or Authorized Inspector Assembly. The Patient or Authorized Inspector Assembly has agreed to proceed with the sensitive [...] MD CC: Brian Ahmadi documented in this encounterRegency Hospital [facility]10-16-2024 Nurse Note* Arlene Baker MA - 05/08/2024 [...] N/A Last Colonoscopy: NONE Arlene Baker MA [facility]10-16-2024 Nurse Note* Arlene Baker MA - 05/08/2024 [...] NONE Arlene Baker MA documented in this encounterRegency Hospital [facility] East10-11-2024 History of Present illness Narrative* Brian Ahmadi APRN.WRONG ADDRESS CLERK - 05/03/2024 10:40 AM EDT Chief Complaint [...] return. This note was partly generated using AxialMED voice recognition dictation and may contain some misspelled or inaccurate words missed on review. documented in this encounterRegency Hospital [facility] East10-11-2024 NoteHNO ID: [id number] Author: BRIAN AHMADI APRN.CNP Service: ? Author [...] Continue to see general surgery. Brian Ahmadi APRN.WRONG ADDRESS CLERK RTO if symptoms return. This note was partly generated using AxialMED voice recognition dictation and may contain some misspelled or inaccurate words missed on review.[facility]10-10-2024 Telephone encounter Note* Telephone Encounter - Michael Feliciano MA - 05/02/2024 7:30 AM EDT PSA pended. Michael Feliciano MA [facility]10-10-2024 Miscellaneous Notes* Telephone Encounter - Michael Feliciano MA - 05/02/2024 7:30 AM EDT PSA pended. Michael Feliciano MA documented in this encounterRegency Hospital [facility] East10-08-2024 History of Present illness Narrative* Brian Ahmadi APRN.WRONG ADDRESS CLERK - 04/30/2024 1:20 PM EDT Chief Complaint Patient presents with: ER F/U: [facility] ER diverticulitis 04/23/2024 HPI Good De Luna is a 58 year old male who presents here today for Hospital Discharge Follow up. follow up for diverticulitis. Patient presenting for emergency room follow-up. Patient went to [facility] on April 23 for complaints of [...] was originally referred to Dr. Wood at [facility] but has not made an appointment. [...] 562.11, ICD10: K57.92 (primary diagnosis) -Diagnosed in [facility]. Last day of Augmentin. Not responding [...] VACCINE AGE 12+ YR ([place]Y) Brian Ahmadi APRN.CNP RTO in 3 days I spent a total of 31 minutes on the date of the service which included preparing to see the patient, wqlq-qv-dcus patient care, completing clinical documentation, obtaining and/or reviewing separately obtained history, performing a medically appropriate examination, counseling and educating the pat ient/family/caregiver, and ordering medications, tests, or procedures. This note was partly generated using AxialMED voice recognition dictation and may contain some misspelled or inaccurate words missed on review. documented in this encounterRegency Hospital [facility]10-08-2024 NoteHNO ID: [id number] Author: BRIAN AHMADI APRN.CNP Service: ? Author Type: Nurse Practitioner Type: Progress Notes Filed: 04/30/2024 14:12 Note Text: Chief Complaint Patient presents with: ER F/U: [facility] ER diverticulitis 04/23/2024 HPI Good De Luna is a 58 year old male who presents here today for Hospital Discharge Follow up. follow up for diverticulitis. Patient presenting for emergency room follow-up. Patient went to [facility] on April 23 for complaints of [...] was originally referred to Dr. Wood at [facility] but has not made an appointment. [...] 562.11, ICD10: K57.92 (primary diagnosis) -Diagnosed in [facility]. Last day of Augmentin. Not responding [...] VACCINE AGE 12+ YR ([place]Y) Brian Ahmadi APRN.WRONG ADDRESS CLERK RTO in 3 days I spent a total of 31 minutes on the date of the service which included preparing to see the patient, qobm-ir-lqof patient care, completing clinical documentation, obtaining and/or reviewing separately obtained history, performing a medically appropriate examination, counseling and educating the patient/family/caregiver, and ordering medications, tests, or procedures. This note was partly generated using AxialMED voice recognition dictation and may contain some misspelled or inaccurate words missed on review.[facility]10-03-2024 Telephone encounter Note* Telephone Encounter - Mathew Cobian MD - 04/25/2024 8:31 AM EDT OK to refill as ordered Mathew Cobian MD [facility]10-03-2024 Miscellaneous Notes* Telephone Encounter - Mathew Cobian [...] asking fornew rx to be sent to [facility] pharmacy please, he said the 175 mcg [...] 24, 2024 2:40 PM documented in this encounterRegency Hospital [facility] East10-02-2024 Telephone encounter Note * Telephone Encounter - Saniya Santoro LPN - 04/24/2024 2:37 PM EDT Patient calling has a message from Priya Ahmadi that he changed his Levothyroxine to 150 mcg and the pharmacy does not have new rx. Explained to patient dose was updated in computer. He is asking fornew rx to be sent to [facility] pharmacy please, he said the 175 mcg [...] Santoro LPN April 24, 2024 2:40 PM [facility]10-01-2024 Telephone encounter Note* Telephone Encounter - Brian Ahmadi APRN.CNP - 04/23/2024 2:26 PM EDT Noted and agree. Brian Ahmadi APRN.CNP [facility]10-01-2024 Miscellaneous Notes* Telephone Encounter - Brian Ahmadi [...] far. 10. : No Protocols used: Rectal Ggowrdir-TBRVH-GP documented in this encounterRegency Hospital [facility] East10-01-2024 Telephone encounter Note * Telephone Encounter - [...] far. 10. : No Protocols used: Rectal Tuwwevph-INRAY-WS [facility]09-25-2024 Instructions* Patient Instructions* Gypsy Syed APRN.CNP - 04/17/2024 9:50 AM EDT Continue to take all medication as prescribed. Get repeat labs in June Keep up coming appointment with Neurology May get ultrasound to evaluate neck mass Follow up with ENT Follow up as scheduled or sooner pending test results. documented in this encounterRegency Hospital [facility] East09-25-2024 History of Present illness Narrative* Gypsy Syed APRN.WRONG ADDRESS CLERK - 04/17/2024 9:40 AM EDT This is [...] APRN.PATTIE This note was partially generated using AxialMED voice recognition system. Note was reviewed for accuracy. There may be minor misspellings or grammar miscues with AxialMED voice recognition. documented in this encounterRegency Hospital [facility] East09-25-2024 NoteHNO ID: [id number] Author: GYPSY SYED APRN.PATTIE Service: ? Author [...] Continue with Synthroid 150 (more content not included)...[facility]09-20-2024 History of Present illness Narrative* Brian Ahmadi, KALEB.WRONG ADDRESS CLERK - 04/12/2024 10:40 AM EDT Chief Complaint [...] fog, memory issues. I did order the [place] score test last month but he has not completed. He will do so soon. He has follow-up with neurology in April with Dr. Cisse in [place]. He has been following with ear nose and throat at [facility] for inner ear problems. He was given [...] needed. This note was partly generated using AxialMED voice recognition dictation and may contain some misspelled or inaccurate words missed on review. documented in this encounterRegency Hospital [facility] East09-20-2024 NoteHNO ID: [id number] Author: BRIAN AHMADI APRN.CNP Service: ? Author [...] neurology in April with Dr. Cisse in [place]. He has been following with ear nose and throat at [facility] for inner ear problems. He was given [...] medications for the past month. Brian Ahmadi APRN.WRONG ADDRESS CLERK RTO in 3 months, sooner if needed. This note was partly generated using AxialMED voice recognition dictation and may contain some misspelled or inaccurate words missed on review.[facility]09-12-2024 Telephone encounter Note* Telephone Encounter - Ross Roldan LPN - 04/04/2024 3:25 PM EDT Patient notified of referral, verbalizes understanding of instructions. Ross Roldan LPN [facility]09-12-2024 Miscellaneous Notes* Telephone Encounter - Ross Roldan [...] opinion . Has been seeingsomeone here in [place]. Asking for someone maybe in [place]. Please advise. documented in this encounterRegency Hospital [facility] East09-12-2024 Telephone encounter Note * Telephone Encounter - Brian Ahmadi APRN.CNP - 04/04/2024 2:59 PM EDT Please let the patient know that I placed a referral to ENT. We usually have patients go to [place]. Brian Ahmadi APRN.PATTIE [facility]09-12-2024 Telephone encounter Note* Telephone Encounter - Angelika Geller LPN - 04/04/2024 2:06 PM EDT Pt calls requesting a referral for another ENT states is wanting a second opinion . Has been seeingsomeone here in [place]. Asking for someone maybe in [place]. Please advise. [facility]08-23-2024 Telephone encounter Note* Telephone Encounter - Scarlet Pascual LPN - 03/15/2024 12:00 PM EDT Phoned patient and reviewed provider's message with him. He voiced understanding. Scarlet Pascual LPN [facility]08-23-2024 Miscellaneous Notes* Telephone Encounter - Scarlet Pascual [...] understanding. Scarlet Pascual LPN documented in this encounterRegency Hospital [facility] East08-23-2024 Telephone encounter Note * Telephone Encounter - Brian Ahmadi APRN.CNP - 03/15/2024 11:22 AM EDT Patient saw urology 3 days ago. They placed a PSA to be completed in August. Brian Ahmadi APRN.CNP [facility]08-23-2024 Telephone encounter Note* Telephone Encounter - Scarlet Pascual LPN - 03/15/2024 10:57 AM EDT Following patient's appointment he was inquiring if he could get his PSA drawn to have it recheckedto ensure it's not getting higher. Advised patient would route provider a message since currently in with patient and get back with him once provider responds. Patient voiced understanding. Scarlet Pascual LPN [facility]08-23-2024 History of Present illness Narrative* Brian Ahmadi APRN.WRONG ADDRESS CLERK - 03/15/2024 10:20 AM EDT Chief Complaint [...] needed. This note was partly generated using AxialMED voice recognition dictation and may contain some misspelled or inaccurate words missed on review. documented in this encounterRegency Hospital [facility] East08-23-2024 NoteHNO ID: [id number] Author: BRIAN AHMADI APRN.CNP Service: ? Author [...] reassess. - BACH SCREENING TEST Brian Ahmadi APRN.WRONG ADDRESS CLERK RTO in 1 months, sooner if needed. This note was partly generated using AxialMED voice recognition dictation and may contain some misspelled or inaccurate words missed on review.[facility]08-21-2024 Telephone encounter Note* Telephone Encounter - Ross Roldan LPN - 03/13/2024 9:19 AM EDT Pt has appt on 03/13 at 10:20 am. Ross Roldan LPN [facility]08-21-2024 Miscellaneous Notes* Telephone Encounter - Ross Roldan [...] convenience. Brian Ahmadi APRN.PATTIE documented in this encounterRegency Hospital [facility] East08-21-2024 Telephone encounter Note * Telephone Encounter - Brian Ahmaid APRN.CNP - 03/13/2024 8:31 AM EDT Please assist with scheduling patient with myself for a follow up. His TSH is abnormal, we need to discuss changing his dose. I have openings on Monday for his convenience. Brian Ahmadi APRN.CNP [facility]08-20-2024 NoteHNO ID: [id number] Author: RAPHAEL CALDERON JR, MD Service: ? Author Type: Physician Type: Progress Notes Filed: 03/12/2024 12:24 Note Text: ESTABLISHED PATIENT OFFICE VISIT HPI Good De Luna is a 58 year old male who presents Previous note dr. Sibley Simpson 6 Prostate Cancer. 09/04 cores found. Prostate [...] Cont active surveillance Raphael Calderon Jr, MD 03/12/2024[facility]08-20-2024 History of Present illness Narrative* [...] Calderon Jr, MD 03/12/2024 documented in this encounterRegency Hospital [facility] East08-06-2024 Telephone encounter Note * Telephone Encounter - [...] know I would send his information to [facility] for him. Pt also missed his neurology appointment in [place] in December, Pt put through to scheduling to set up. Faxed demographic sheet, orders, and 10/17/23 OV note to fax # [phone]. [facility]08-06-2024 Miscellaneous Notes* Telephone Encounter - Renard Lo [...] know I would send his information to [facility] for him. Pt also missed his neurology appointment in [place] in December, Pt put through to scheduling to set up. Faxed demographic sheet, orders, and 10/17/23 OV note to fax # [phone]. documented in this encounterRegency Hospital [facility] East07-27-2024 NoteHNO ID: [id number] Author: ABBE ADAME APRN.WRONG ADDRESS CLERK Service: ? Author Type: Nurse Practitioner Type: Progress Notes Filed: 02/17/2024 11:58 Note Text: Subjective Came in with complaints of itching rash on the left lower ankle. Patient says that he noticed it this morning. Patient was outside yesterday but did not get into [place]. Patient denies any other symptoms other than itching. The history is provided by the patient. No foreign languages professor was used. Rash Review of Systems Constitutional: [...] okay with this care plan. Abbe Adame APRN.[facility]07-27-2024 History of Present illness Narrative* Abbe Adame APRN.[facility] - 02/17/2024 11:57 AM EDT Images from the original note were not included. Subjective Came in with complaints of itching rash on the left lower ankle. Patient says that he noticed it this morning. Patient was outside yesterday but did not get into poison bello. Patient denies any other symptoms other than itching. The history is provided by the patient. No foreign languages professor was used. Rash Review of Systems Constitutional: [...] plan. Abbe Adame APRN.CNP documented in this encounterReg[facility] Telephone encounter Note * Telephone Encounter - Brian Ahmadi APRN.CNP - 01/29/2024 2:32 PM EDT The following approved medication requests have been transmitted electronically. Requested Prescriptions Pending Prescriptions Disp Refills omeprazole (PRILOSEC) 20 mg capsule [Pharmacy Med Name: OMEPRAZOLE DR 20 MG CAPSULE] 90 capsule 3 Sig: take 1 capsule by mouth once daily Brian Ahmadi APRN.CNP [facility]07-08-2024 Miscellaneous Notes* Telephone Encounter - Brian Ahmadi [...] capsule by mouth once daily Sofia Diaz [facility] January 29, 2024 12:31 PM documented in this encounterReg[facility]24 Telephone encounter Note * Telephone Encounter - [...] capsule by mouth once daily Sofia Diaz [facility] January 29, 2024 12:31 PM [facility] Work Phone: [phone] 924-563905-29-2024 Telephone encounter Note* Telephone Encounter - Ross Roldan LPN - 12/20/2023 6:12 PM EDT Patient notified of results, verbalizes understanding of instructions. Ross Roldan LPN [facility]05-29-2024 Miscellaneous Notes* Telephone Encounter - Ross Roldan [...] you. Gypsy Syed APRN.CNP documented in this encounterRegency [facility]05-29-2024 Telephone encounter Note * Telephone Encounter - [...] any questions. Thank you. Gypsy Syed APRN.CNP [facility]05-23-2024 Instructions* Patient Instructions* Gypsy Syed APRN.CNP - 12/14/2023 11:37 AM EDT Get labs completed Take Claritin daily add on Flonase twice daily, rinse mouth afterwards. Recommend consult with Neurology (Dr. Melonie Mcneil). Follow up pending test results documented in this encounterRegency Hospital [facility]05-23-2024 History of Present illness Narrative* Gypsy Syed APRN.WRONG ADDRESS CLERK - 12/14/2023 11:00 AM EDT This is [...] APRN.CNP This note was partially generated using AxialMED voice recognition system. Note was reviewed for accuracy. There may be minor misspellings or grammar miscues with AxialMED voice recognition. documented in this encounterRegency Hospital [facility]05-16-2024 Telephone encounter Note * Telephone Encounter - Gypsy Syed APRN.CNP - 12/07/2023 12:17 PM EDT The following approved medication requests have been transmitted electronically. Requested Prescriptions Pending Prescriptions Disp Refills levothyroxine (SYNTHROID) 175 mcg tablet [Pharmacy Med Name: LEVOTHYROXINE 175 MCG TABLET] 90 tablet 3 Sig: take 1 tablet by mouth every morning ON AN EMPTY STOMACH for THYROID Gypsy Syed APRN.CNP [facility]05-16-2024 Miscellaneous Notes* Telephone Encounter - Gypsy Syed APRN.CNP - 12/07/2023 12:17 PM EDT The following approved medication requests have been transmitted electronically. Requested Prescriptions Pending Prescriptions Disp Refills levothyroxine (SYNTHROID) 175 mcg tablet [Pharmacy Med Name: LEVOTHYROXINE 175 MCG TABLET] 90 tablet 3 Sig: take 1 tablet by mouth every morning ON AN EMPTY STOMACH for THYROID Gypsy Syed APRN.CNP documented in this encounterRegency Hospital [facility]05-15-2024 Telephone encounter Note * Telephone Encounter - [...] was identified. 12/06/2023 by Gypsy Syed APRN.CNP [facility]05-15-2024 Miscellaneous Notes* Telephone Encounter - Gypsy Syed [...] a new rx to be sent to [facility] pharmacy please. Pending rx if wanted. Please advise documented in this encounterRegency Hospital [facility]05-15-2024 Telephone encounter Note * Telephone Encounter - [...] a new rx to be sent to [facility] pharmacy please. Pending rx if wanted. Please advise [facility]05-15-2024 Telephone encounter Note* Telephone Encounter - Ava Dunn RN - 12/06/2023 10:53 AM EDT Patient calling requesting to speak with jail officer. Patient states he cannot find his Lorazepam andwould like to see if it is possible for provider to call in a new prescription. Patient denies any new or worsening symptoms of which a provider is not aware:Yes . [facility]-15-2024 Miscellaneous Notes* Telephone Encounter - Ava Dunn RN - 12/06/2023 10:53 AM EDT Patient calling requesting to speak with jail officer. Patient states he cannot find his Lorazepam andwould like to see if it is possible for provider to call in a new prescription. Patient denies any new or worsening symptoms of which a provider is not aware:Yes . documented in this encounterRegency Hospital [facility]04-14-2024 Miscellaneous Notes* Telephone Encounter - Zoë Miller [...] AM EDT ----- Message from Carolyn Nava APRN.WRONG ADDRESS CLERK sent at 11/03/2023 7:14 AM EDT ----- Please advise patient the urine culture was negative for any infection. Follow instructions given by provider at visit, f/u with PCP if symptoms persist or worsen. documented in this encounterRegency Hospital [facility]04-10-2024 History of Present illness Narrative* Terri Mackey, [...] PATIENT PRESENTS WITH AN IMPLANTABLE OR ATTACHED SURVEYING TEACHER: No RADIOLOGY DEPARTMENT: Ultrasound PERIPHERAL IV DATA: Not applicable SIGNED BY: Terri Mackey, TECHNOLOGIST November 01, 2023 5:17 PM documented in this encounterRegency Hospital [facility]04-10-2024 History of Present illness Narrative* Barbara Quarles APRN.WRONG ADDRESS CLERK - 11/01/2023 3:05 PM EDT This note was created using StatSims.comriter. Subjective Good De Luna is a 58 [...] Exam Vitals reviewed. Exam conducted with a coil repair technician present. Constitutional: General: He is awake. He is not in acute distress. Appearance: Normal appearance. He is obese. He is not ill-appearing, toxic- appearing or diaphoretic. HENT: Head: Normocephalic and atraumatic. Right Ear: Hearing normal. Left Ear: Hearing normal. Nose: Nose normal. Mouth/Throat: Lips: [place]. No lesions. Eyes: General: Lids are normal. [...] do not improve Roseline Henry TEACHING PROVIDER (Physician/PA/FISHING ROD MARKER) NOTE OF PERSONAL INVOLVEMENT IN CARE: I have personally seen and examined the patient and performed the medical decision-making components. I have reviewed the Advanced Practice Registered Nurse (FISHING ROD MARKER) Student's documentation and verified the findings in the note as written. Any additions or changes are noted in bold/italics. Signature: Barbara Quarles Date: 11/01/2023 Time: 7:13 PM documented in this encounterRegency Hospital [facility]04-04-2024 Miscellaneous Notes* Telephone Encounter - Mick Youngblood MA - 10/26/2023 4:53 PM EDT This has been signed and sent to be mailed out. Mick Youngblood MA * Telephone Encounter - Mick Youngblood MA - 10/26/2023 2:38 PM EDT Parking placard on PCP's desk to sign. Pt requesting to have this mailed to his home. Mick Youngblood MA documented in this encounterRegency Hospital [facility]03-26-2024 History of Present illness Narrative* Mathew Cobian MD - 10/17/2023 10:00 AM EDT Chief Complaint Patient presents with: Hospital Follow Up HPI Good De Luna is a 58 year old male who presents here today for Hospital Discharge Follow up.. Pt went to [facility] on 09/26/23 and transferred to [facility] on 09/26/23 for Developmental venous anomaly. Stroke was ruled out. Discharged to 09/29/23 to [facility]. Pt was discharged from [facility] on 10/14/23. He states he is [...] care of Good De Luna at [facility]. As you well know [...] therapy. He is being discharged to an [facility] in a stable condition. This discharge plan has been explained to the patient and his girlfriend. Diagnosis: Developmental venous anomaly, Pre-syncope Management plan at discharge: -Continue home medications including synthroid, omeprazole and citalopram -Therapies at an [facility] Follow up plan after discharge: -Follow up [...] Past Histories independently gathered by the clinical operations support professionals and the remaining scribed note accurately describes [...] AM. Laura Whaley MA documented in this encounterRegency Hospital [facility]03-25-2024 Miscellaneous Notes* Telephone Encounter - Mick Youngblood [...] 1:25 PM EDT Office received discharge from [facility] in office. Faxed to Adrianna at information below. Mick Youngblood Ma * Telephone Encounter - Ross Abarca RN - 10/16/2023 9:33 AM EDT Adrianna from [facility]. She states she wanted to make sure Dr. Cobian was aware that pt was discharged home on Monday from [facility]. She is asking that we fax pt's discharge summary to her at [phone]. Explained that it did not appear that we have it yet. She states whenever we get it to please fax it to her. documented in this encounterRegency Hospital [facility]03-20-2024 Telephone encounter Note * Telephone Encounter - Tere Mak - 10/11/2023 11:55 AM EDT Name of caller: [place] Relation to patient: [facility] Contact phone number: [phone] Appointment scheduled with: Dr. Taylor Appointment date & time: 10/18/23 8:00 AM Reason for visit (are you having any symptoms) : Developmental venous anomaly 09/26/23 ED admission Transportation issues/ concerns: No Special accommodations? ( wheel chair, etc) : None Current medications: No Any refills need: None Any chronic conditions the provider should be aware of: No [id number] Miscellaneous Notes* Telephone Encounter - Tere Mak - 10/11/2023 11:55 AM EDT Name of caller: Park Relation to patient: [facility] Contact phone number: [phone] Appointment scheduled with: Dr. Taylor Appointment date & time: 10/18/23 8:00 AM Reason for visit (are you having any symptoms) : Developmental venous anomaly 09/26/23 ED admission Transportation issues/ concerns: No Special accommodations? ( wheel chair, etc) : None Current medications: No Any refills need: None Any chronic conditions the provider should be aware of: No documented in this [facility]03-11-2024 Miscellaneous Notes* Telephone Encounter - Uma Jett RN - 10/02/2023 3:58 PM EDT Adrianna Furnace Roaster with [employer] calls to report that patient was discharged from [facility] on 09/28 and admitted to [facility]. Uma Jett RN documented in this encounterRegency Hospital [facility]03-08-2024 Nurse Note* Nursing Notes - Giselle Adame RN - 09/29/2023 10:49 AM EST Report called Mandi Miller RN. CHIKIS,[facility]ENROY faxed IVs discontinued Discharge suite to come transport pt to his SO. [facility]03-08-2024 Miscellaneous Notes* Nursing Notes - Giselle [...] 7:46 AM EST Neurosurgery Update: Consulted for [facility]. Briefly, Mr. Good De Luna is a [...] MD, Neurosurgery NS2 ([id number]) documented in [facility] History of Present illness Narrative* Laura [...] 12/31. Transfer Assessment/Intervention: Sit to Stand Transfer [place] Level: Sit->Stand: contact guard assist Assistive Device: Sit->Stand: gait belt, 2 wheeled walker Skilled Rationale: Verbal cues, Positioning, Hand placement, Full extension to upright positioning/posture, Technique of activity, Cues for increased safety Skilled Intervention/Details: Sit->Stand: x4 from EOB. Stand to Sit Transfer [place] Level: Stand->Sit: contact guard assist Assistive Device: Stand->Sit: gait belt, 2 wheeled walker Skilled Rationale: Verbal cues, Positioning, Hand placement, Technique of activity, Cues for increased safety Functional Mobility: Functional Mobility [place] Level: Functional Mobility/Gait: contact guard assist Assistive Device: Functional Mobility/Gait: 2 wheeled walker, gait belt Functional Mobility Distance: Distance needed to access restroom Ambulation Distance (Feet): 45 (15,15,5,5,5) Functional Mobility Deficits: Activity tolerance, Balance, Follow safety/precautions, Generalized weakness Functional Mobility Skilled Rationale: Verbal cues, Cues for increased safety, Energy conservation,Technique of activity Outcome Score(s): [facility] Daily Activity Inpatient Short Form Putting on/Taking Off Lower Body Clothin - A Little Assistance Bathin - A Little Assistance Toiletin - A Little Assistance Putting on/Taking Off Upper Body Clothin - A Little Assistance Groomin - A Little Assistance Eatin - No Assistance [facility] Activity Raw Score: 19 [facility] Activity Functional Limitation/Modifier: 42.80% Currently Impaired in [...] Selected Services Address Phone Fax Patient Preferred [facility] Inpatient Rehabilitation [address] [place] [address] ---- Patient medically stable for discharge per physician/medical team. Pt to discharge to [facility] tomorrow at 1300. SO to transport Pt to [facility]. The phone number for report is [phone], and the fax number for [facility] is [phone]. Pt to schedule appointment with neurosurgery. Patient/Inspector Assembly remain in agreement with the discharge plan. ARMEN Martinez Furnace Roaster [phone] CM updated Pt's Home Care Waiver CM on the status of the discharge plan. ARMEN Martinez Furnace Roaster [phone] * Froilan Stallworth PT - 09/28/2023 1:37 PM EST Acute Physical Therapy Treatment Prior to Admission [facility] score(s): PRIOR LEVEL AM-PAC Mobility Raw Score: [...] support. Mobility Assessment/Intervention: Supine to Sit Mobility [place] Level: Supine->Sit: stand-by assist Bed Features/Set-up: Supine->Sit: Flat Transfer Assessment/Intervention: Sit to Stand Transfer [place] Level: Sit->Stand: contact guard assist Assistive Device: Sit->Stand: gait belt, 2 wheeled walker Skilled Rationale: Verbal cues, Hand placement, Facilitate anterior shift Stand to Sit Transfer [place] Level: Stand->Sit: contact guard assist Assistive Device: Stand->Sit: gait belt Skilled Rationale: Verbal cues, Positioning, Controlled descent for sitting Gait/Functional Mobility Assessment/Intervention: Gait Assessment [place] Level: Gait: contact guard assist Assistive Device: [...] bilaterally to improve independence. Stairs Assessment/Intervention: [facility] Basic Mobility Inpatient Short Form Turning over [...] railin - A Lot of Assistance [facility] Mobility Raw Score: 18 [facility] Mobility Functional Limitation/Modifier: 46.58% Currently Impaired in [...] PT Goals Plan of Care by Froilan Stallworth PT at 09/28/2023 2:19 PM Version 1 [...] consult for swallow evaluation. However, patient passed [place] Swallow Screening by nursing.Swallow eval by INSTRUMENT MAKER APPRENTICE will not be completed at this time unless this service notified of change in status or re-consult for swallow eval placed. INSTRUMENT MAKER APPRENTICE speech/language/cognitive consult received and chart review completed [...] Partner at bedside in agreement. Therefore, skilled INSTRUMENT MAKER APPRENTICE evaluation and services are not warranted at this time. INSTRUMENT MAKER APPRENTICE will complete consult. Discussed with pt who states awareness/indications for follow up in OP setting. Time in: 904 Time out: 922 No charge Cherise Powers MA, [facility]-INSTRUMENT MAKER APPRENTICE Pager: [phone] License: [email or web address] Email: [email or web address] * Herlinda Smith APRN-WRONG ADDRESS CLERK - 09/28/2023 8:05 AM EST NEUROVASCULAR STROKE SERVICE Daily Progress Note IDENTIFYING INFORMATION Good De Luna MR# [id number] 09/28/2023 HISTORY OF PRESENT ILLNESS Good De [...] De Luna will likely be discharged to [facility] Herlinda Smith APRN-PATTIE 09/28/2023 11:31 AM VITAL [...] Bed Availability Current Referrals and Status 1. [facility]-accepted IPR is not expected to have a bed until or Monday. CM updated Pt and the treatment team. ARMEN Martinez Furnace Roaster [phone] * Miley Le OT - 09/27/2023 11:28 AM EST Referral has been received to evaluate for admission to [facility] for inpatient rehab. Will review and notify of determination via source of referral. [facility] to complete chart review when therapy evaluations available. Thank you, ILIA Paulino, OTR/L, CBIS Rehab Terminal Operator [address] [phone] / [email or web address] * Herlinda Smith APRN-WRONG ADDRESS CLERK - 09/27/2023 10:31 AM EST NEUROVASCULAR STROKE SERVICE Daily Progress Note IDENTIFYING INFORMATION Good De Luna MR# [id number] 09/27/2023 HISTORY OF PRESENT ILLNESS Good De [...] De Luna will likely be discharged to [facility] MACHELLE Jain 09/27/2023 10:36 AM VITAL SIGNS [...] Acute Physical Therapy Evaluation Prior to Admission [facility] score(s): PRIOR LEVEL AM-PAC Mobility Raw Score: [...] Intact Mobility Assessment: Supine to Sit Mobility [place] Level: Supine->Sit: stand-by assist Skilled Rationale: Positioning, Sequencing, Verbal cues, Cues for increased safety Skilled Intervention/Details: Supine->Sit: stand by assist, cues for logroll due to back pain Sit to Supine Mobility [place] Level: Sit->Supine: minimum assist (75% patient effort) [...] standing. Transfer Assessment: Sit to Stand Transfer [place] Level: Sit->Stand: minimum assist (75% patient effort) Assistive Device: Sit->Stand: gait belt Skilled Rationale: Positioning, Sequencing, Verbal cues, Cues for increased safety, Technique of activity Skilled Intervention/Details: Sit->Stand: x2 from EOB, x1 from recliner, cues for safety throughout, requires cues to push from recliner instead of pulling on walker for support. Stand to Sit Transfer [place] Level: Stand->Sit: minimum assist (75% patient effort) Assistive Device: Stand->Sit: gait belt Skilled Rationale: Positioning, Hand placement, Sequencing, Verbal cues, Cues for increased safety Skilled Intervention/Details: Stand->Sit: Pt requires assist and cues for proximity of chair andcontrolled descent Gait/Functional Mobility: Gait Assessment [place] Level: Gait: minimum assist (75% patient effort) [...] clearance during bouts. Stairs: Outcome Score(s): [facility] Basic Mobility Inpatient Short Form Turning over [...] railin - A Lot of Assistance [facility] Mobility Raw Score: 18 [facility] Mobility Functional Limitation/Modifier: 46.58% Currently Impaired in [...] Level(s) of Care Discussed: IPR Patient and/or Inspector Assembly's Preferred Geographic Area for Discharge: [address] Patient and/or Inspector Assembly's Preference for Providers to Include? [facility], [facility] and [facility] Patient and/or Inspector Assembly's Preference for Providers to Exclude? N/A Patient and/or Inspector Assembly's Discussion: Discussed referral process with the patient and/or student services representative. Patient and/or student services representative isagreeable to have placement referral initiated. Pt is medically ready for discharge. [facility] does not have any beds. [facility] reviewing. Pt's third choice [facility] is able to accept. ARMEN Martinez Furnace Roaster [phone] 09/27/23, 1449 CM called [facility] IPR for an update on the status of the referral. Admissions states that they are still reviewing the referral and should have an answer on whether or not they can accept bytomorrow morning. ARMEN Martinez Furnace Roaster [phone] * NYDIA Guzman - 09/27/2023 10:00 AM EST Discharge Planning Patient Assessment Admission Assessment Patient Assessment Completed: Initial Anticipated discharge disposition: Inpatient Rehab Facility Reason for Admission: Stroke work-up Is the patient able to participate in the assessment?: Yes Information source: Patient, Review of Medical Record Information Source Name/Contact: Good De LunaFrlbvb-[phone] Demographics Verified and Updated: Yes Has the [...] Yes Name and Contact information: Barbaramadyson De LunaOaatfn-[phone] Would you like to add additional adult children?: Yes Name and Contact information: Cee De LunaDtbtdj-[phone] Referral to Social Work to Identify Legal [...] Is the patient from a facility or fci?: No Patient lives with: Alone Living Environment: [...] services?: Yes Select Program, Services, Resources : [place] [facility] Waiver (Pt's daughter Barbara is Pt's aid 20 hours per week. Pt's CM is Adrianna Pineda. Her phone number is [phone].) Does the patient have a Product Support Analyst or Clinical Faculty?: Yes Product Support Analyst or Clinical Faculty Agency, Name and Contact: Adrianna LeonardTczwfqw-[phone] Does patient use DME? : walker, wheelchair, [...] consults?: Yes Select consult type: PT, OT, INSTRUMENT MAKER APPRENTICE Does the patient's home require any home modifications for discharge? : No CM to recommend therapy or other consults? : No Medication Management Does the patient have prescription insurance coverage? : Yes Is the patient on Anticoagulation? : No [id number] [place] [address] - [address] [facility] [address] [facility] [address] Patient Service Technician Pst Does the patient or student services representative express financial concerns? : No Employed?: Disabled Coping/Stress Concerns about patient s coping and stress?: No Values and Beliefs Cultural or pentecostalism practices that may impact discharge planning and/or [...] bedside. Pt is agreeable to discharging to [facility]. Pt's [address] [place] [address] has no beds available until next week. Awaiting review of referral by Pt's2nd and 3rd choices. [facility]. Pt is medically ready for discharge. ARMEN Martinez Furnace Roaster [phone] * Nguyễn Watson - 09/27/2023 9:57 AM [...] IADL History IADLs: needs assist Primary Language: Hungarian Home Management Skills: needs assist Medication Management: [...] Balance Skilled Intervention/Details: Completed functional mobility with HEEL NAILING MACHINE OPERATOR MIN Ax2 and 2WW with MIN Ax1 Neuro: Sensation Overall Sensation: Intact Gross Coordination Gross Coordination: bilat UE intact Fine Motor Coordination Additional Documentation: Yes Fine Motor Coordination Left Hand Thumb/Finger Opposition Skills: normal performance Right Hand Thumb/Finger Opposition Skills: normal performance Skin and Edema: Skin Integrity Skin Integrity Description: WFL Edema Edema: none noted Mobility Assessment: Supine to Sit Mobility [place] Level: Supine->Sit: stand-by assist Bed Features/Set-up: Supine->Sit: Head of bed elevated Skilled Rationale: Positioning, Sequencing, Verbal cues Skilled Intervention/Details: Supine->Sit: Educated on log roll due to back pain Sit to Supine Mobility [place] Level: Sit->Supine: minimum assist (75% patient effort) Bed Features/Set-up: Sit->Supine: Flat, Use of bed rail Skilled Rationale: Positioning, Sequencing, Verbal cues, Tactile cues Skilled Intervention/Details: Sit->Supine: Required assist for BLE's and educated on log roll technique. Transfer Assessment: Sit to Stand Transfer [place] Level: Sit->Stand: minimum assist (75% patient effort) Assistive Device: Sit->Stand: gait belt Skilled Rationale: Positioning, Sequencing, Verbal cues, Cues for increased safety, Technique of activity Skilled Intervention/Details: Sit->Stand: x2 from EOB, x1 from armed chair Stand to Sit Transfer [place] Level: Stand->Sit: minimum assist (75% patient effort) Assistive Device: Stand->Sit: gait belt Skilled Rationale: Positioning, Hand placement, Sequencing, Verbal cues, Cues for increased safety Skilled Intervention/Details: Stand->Sit: Cues for controlled descent Functional Mobility: Functional Mobility [place] Level: Functional Mobility/Gait: minimum assist (75% patient effort) Physical Assist: Functional Mobility/Gait: chair follow (1 person) Assistive Device: Functional Mobility/Gait: gait belt (2 trials: 1 HEEL NAILING MACHINE OPERATOR, 1 2WW) Functional Mobility Distance: Distance needed [...] Assessment Patient currently uses wheelchair?: No CURRENT [facility] Daily Activity Inpatient Short Form Putting on/Taking Off Lower Body Clothin - A Little Assistance Bathin - A Little Assistance Toiletin - A Little Assistance Putting on/Taking Off Upper Body Clothin - A Little Assistance Groomin - A Little Assistance Eatin - No Assistance CURRENT -[facility] Activity Raw Score: 19 CURRENT -[facility] Activity Functional Limitation/Modifier: 42.80% Currently Impaired in [...] further questions. Name: Gypsy Robert RPH Phone: [phone] Date/Time: 09/26/2023 9:47 PM documented in this [facility]03-08-2024 Plan of care note* Plan of Care [...] UE ROM/Coordination/strength for ADLs. Outcome: Ongoing [facility]03-08-2024 Hospital course Narrative* Adam Pulido, FISHING ROD MARKER-WRONG ADDRESS CLERK - 09/29/2023 8:09 AM EST Discharge Summary Name: Good De Luna Age: 58 y.o. Birthday: 1965 Admit Date: 09/26/2023 9:41 PM Discharge Date: 09/29/23 Discharge Time: 1300 Discharge Unit: 10 [facility] Admission Information Admitting Physician: Cristina Chan MD Discharge Information Discharge Physician: Dr. Cristina Chan Problem List Active Hospital Problems Diagnosis Developmental venous anomaly Resolved Hospital Problems No resolved problems to display. Brief Summary of Hospital Course for Discharge Summary: Dear Providers, We recently had the pleasure of taking care of Good De Luna at [facility]. As you well know [...] therapy. He is being discharged to an [facility] in a stable condition. This discharge plan [...] you take each medicine. Include all prescription tisbsko-mor-dkeahyl medicines, vitamins, and supplements. Keep this list [...] plan your refills so that you can pickling grader all your medicines at the same time. This can mean fewer trips to the drugstore. If we have prescribed you a new medication during your stay, please contact with your primary physician for refills Follow-up: Mathew Cobian MD [address] [facility] [id number] Follow up Neurosurgery Follow up Please call to schedule an appointment in 4-[address] Brothers[address] [address] documented [facility] Plan of care note* Plan of Care - Khadijah Rahman RN - 09/29/2023 2:51 AM EST Problem: Patient Care Overview Goal: Discharge Needs Assessment Outcome: Progressing Goal: Interdisciplinary Rounds/Family Conf Outcome: Progressing [facility]03-07-2024 Plan of care note* Plan of [...] (DVA) and Urine Cx reviewed (ATB d/c'd) [facility]03-07-2024 Plan of care note* Plan of [...] safely navigate home and community. Outcome: Progressing [facility]03-07-2024 Miscellaneous Notes* Telephone Encounter - Mathew Cobian MD - 09/28/2023 11:48 AM EST Noted Mathew Cobian MD * Telephone Encounter - Lissa Rich RN - 09/27/2023 3:10 PM EST Federica with [employer] [facility] calls to let provider know that patient was transferred to [facility] from [facility] ED yesterday for stroke like symptoms. She reports patient is doing well and stroke has been ruled out. Federica requests if we receive discharge summary to fax it to her at [phone]. Lissa Rich RN documented in this [facility]Reg[facility] Plan of care note* Plan of Care [...] (reference Stroke (Ischemic) (Adult) CPG). Outcome: Progressing [facility]03-06-2024 Plan of care note* Plan of [...] home and community. Outcome: Ongoing [facility]03-06-2024 Plan of care note* Plan [...] during daily routine. Outcome: Ongoing [facility]03-06-2024 Hospital Discharge instructions* Discharge Instructions* Herlinda Smith FISHING ROD MARKER-WRONG ADDRESS CLERK - 09/27/2023 8:41 AM EST Please take [...] may call your neurovascular doctors office at [phone], if you have questions between 8:30 am and 4:30 pm. - For off hours or the weekend you may call the office or the hospital clean in places operator at and ask for the stroke resident manager personnel selection to be paged. - If you have any questions or needs, please call Delilah MACE RN, stroke program managerat [phone] Mon-Mon from 01-23. Additional Contacts: Evening and Weekend Contacts If you have questions or concerns during evening, weekend, or holiday hours, please call: -[facility] clean in places operator at [phone]. -[facility] clean in places operator at [phone] Ask the clean in places operator to page the on-call doctor for Neurovascular service, they were responsible for your care while you were in the hospital. If you having an emergency, call 911. Case Management Office [phone] *In the event of an Emergency: If you have a physical or psychiatric emergency call 911 or go to your local emergency department. You should also call your outpatient provider's emergency number. Other reference numbers: [facility] Intake Office at [phone]; [facility] at 090-809-5059; or Suicide Prevention Hotline at 190-869-8106. *Helpful phone numbers: Free Crisis Hotline: 0-665-479-TALK ( ) Suicide Hotline: 872.914.1559 Seniors Suicide Hotline: 396.294.3037 [facility] Youth: 690.312.6973 Mental Health of [place]: 105.412.8698 (free counseling) [facility] Access Hotline: 485-984-HVKE (773-554-3093) 24-hour crisis text hotline: Text the word 4hope to 739-118 for crisis support. Texting this number is [...] you may qualify for Medicaid/public assistance: [facility] Department of Job and Family Services can now process barreto (TANF), food (SNAP) and Medicaid Applications over the phone. Please call 3-921-015-DELAWARE ([phone]) and apply over the phone or apply online at www.benefits.[place].gov. Monday-Monday 8am-12pm noon. Medication Assistance Programs [employer] members can buy 100+ common prescriptions for FREE, $3 or $6. Annual membership is $36 for individuals and $72 for families (up to 6 people, including pets). Sign up online or enroll at your nearest pharmacy! [place], web site can provide a significant number of coupons for medications at a much lower kaiser. [place] Department of Aging The Department of Aging administers programs and services to meet the needs of older [place]. Services and resources offered per county may include transportation, housekeeping, meals and nutrition, personal care, case management, safety monitoring, home medical equipment, legal services, financial administrator, health and wellness, education, caregiver support, respite care, etc. Call to be connected to the area agency on aging serving your community or visit aging.[place].gov/find-services. Request a consultation with a community resource expert at ltssi.age.[place].gov/ [facility] Stroke Support The [facility] Stroke Support Group is for stroke survivors, friends, and family members. Meets on the Monday of each month from 6:30pm-7:30pm at [facility] ([address]; [place] [address]). Contact Linda Verde at [phone] or [email or web address]. If you are outside of the [facility], contact The [place] Stroke Association at www.strokeassociation.org or 0-015-4-stroke, or for supports groups in your area. [...] you take each medicine. Include all prescription qgpxuna-xme-jvxbfim medicines, vitamins, and supplements. Keep this list [...] plan your refills so that you can pickling grader all your medicines at the same time. [...] breathing -Fever or chills documented in this [facility]03-06-2024 History and physical note* Cristina Chan MD [...] PCP in 1 week. Cristina Chan MD [facility]03-06-2024 History and physical note* Cristina Chan [...] week. Cristina Chan MD documented in [facility] Plan of care note* Plan of Care - Sanjay Ledesma MD - 09/27/2023 7:46 AM EST Neurosurgery Update: Consulted for [facility]. Briefly, Mr. Good De Luna is a [...] Sanjay Ledesma MD, Neurosurgery NS2 ([id number]) [facility] Work Phone: 1(991) 521-447903-06-2024 Emergency department Note* Nela Blanco RN - 09/27/2023 12:14 AM EST Per MD Marie & SANDI, ok to go to mri off tele. [facility]03-06-2024 Emergency department Note* Nela Blanco RN - [...] 09/26/2023 9:57 PM Rate: normal Rhythm: normal [place]: normal Intervals: normal ST segments: normal T [...] dissection, brain mass Clayton Burnham MD, [facility] Turf Sales Person of Internal and Emergency Medicine Division of [...] still be present Evan Burnham MD 09/26/23 2793 * Nela Blanco RN - 09/26/2023 9:42 [...] nausea, vomiting,changes in bowel/bladder habits. LKW: 3d IT TECHNICAL SUPPORT SPECIALIST Deficits include: None Anticoagulation/Antiplatelets: None Prior strokes: [...] on admitting, then he can come to [place] PCU under Dr. Chan Medications Lidocaine 1% [...] stroke alert. Pt is a transfer from [facility] . SW called and confirmed with OSH that family waspresent there and aware of transfer [facility]. Patient Contacts (08/25) barbara De Luna Child [phone] Cee De Luna Child [phone] SW to remain available for any needs, once pt arrives to [facility] ED. ARMEN Minaya [phone] documented in this encounterOSU [facility] NoteAcute Coronary Syndrome (ACS): Initial Evaluation and Management: [email or web address]/Acute%20Coronary%20Sy ndrome.pdf#[email or web address] [facility]03-05-2024 Consult note* Sebastian Roque MD - 09/26/2023 10:28 PM ESTAssociated Order(s): IP CONSULT TO SURGERY - NEURO Neurosurgery Consult Note Reason for Consultation: IPH HPI Mr. Good De Luna is a 58 y.o. male w/ cerebral palsy, hypothyroidism, prostate cancer Simpson 6 currently on surveillance p/w dizziness and [...] in the care of this patient. [facility] Work Phone: 1(693) 289-389303-05-2024 Consult note* Sebastian Roque MD - 09/26/2023 10:28 PM ESTAssociated Order(s): IP CONSULT TO SURGERY - NEURO Neurosurgery Consult Note Reason for Consultation: IPH HPI Mr. Good De Luna is a 58 y.o. male w/ cerebral palsy, hypothyroidism, prostate cancer Simpson 6 currently on surveillance p/w dizziness and [...] no drift Left Leg: no drift Coordination: Eqanqe-ee-bvew intact bilaterally. Sensation: intact to light touch throughout without extinction. Gait: not assessed. Laboratory Results Diagnostics/Procedures: Labs-CBC WBC/Hgb/Hct/Plts: 10.33/14.5/43.8/252 (09/25 2209) Labs-Chem 7([facility]) Bun/Creat/Cl/CO2/Glucose: 18/0.88/103/24/97 (09/25 2209) Na/K+/Phos/Mg/Ca: 135/4.1/3.4/1.9/9.5 (09/25 [...] ED. Continuous telemetry -PT, OT, Speech and professor of social work consults Other problems: Complexity. Obesity Body mass [...] note does not necessarily reflect the individual manager personnel selection. Please page with urgent questions, as IS Secure Chat is not a reliable method for urgent needs. Signed, Keisha Alcantara MD Neurology documented in this encounterHenry County Hospital03-05-2024 Physician Emergency department Note* Evan Burnham [...] 09/26/2023 9:57 PM Rate: normal Rhythm: normal [place]: normal Intervals: normal ST segments: normal T [...] dissection, brain mass Clayton Burnham MD, [facility] Turf Sales Person of Internal and Emergency Medicine Division of [...] still be present Evan Burnham MD 09/26/23 7088 [facility] Work Phone: [phone]) 245-241203-05-2024 Emergency department Note* Nela Blanco RN - 09/26/2023 9:42 PM EST Pt presents via ground transport as hemorrhagic stroke alert. LKW Monday evening. Patient developed dizziness without falls, no trauma. Patient reportedly has no deficits. Went to OSH today and was found to have R frontal ICH on imaging. Patient presents to [facility] alert, oriented. EM and Neurovasc teams present on arrival for evaluation. Gluc 87 [facility]03-05-2024 Emergency department Note* Connie Savage RN - 09/26/2023 9:41 PM EST Bed: E036 Expected date: Expected time: Means of arrival: Comments: Calixto-nih 0 [facility]03-05-2024 Physician Emergency department Note* Alfredo [...] nausea, vomiting,changes in bowel/bladder habits. LKW: 3d IT TECHNICAL SUPPORT SPECIALIST Deficits include: None Anticoagulation/Antiplatelets: None Prior strokes: [...] on admitting, then he can come to [place] PCU under Dr. Dustin Arvizu Lidocaine 1% (PF) (XYLOCAINE MPF) 1 % injection 0.3 mL (has no administration in time range) Disposition: Admission, PCU level at least Medical Decision Making Amount and/or Complexity of Data Reviewed Labs: ordered. Radiology: ordered. ECG/medicine tests: ordered. Risk Prescription drug management. Alfredo Zhao MD This note was dictated using Incentive Logic Dictation Software. Attempts at proofreading have been made, however errors may still occasionally occur. Alfredo Zhao MD Resident 09/26/232225 [facility] Work Phone: [phone] Emergency department Note* NYDIA Casper - 09/26/2023 9:31 PM EST ED SW responded to stroke alert. Pt is a transfer from [facility] . SW called and confirmed with OSH that family waspresent there and aware of transfer to [facility]. Patient Contacts (08/25) barbara De Luna Child [phone] Cee De Luna Child [phone] SW to remain available for any needs, once pt arrives to [facility]. ARMEN Minaya [phone] [facility]03-05-2024 Consult note* Keisha Alcantara MD - [...] no drift Left Leg: no drift Coordination: Dguwtu-xj-amag intact bilaterally. Sensation: intact to light touch throughout without extinction. Gait: not assessed. Laboratory Results Diagnostics/Procedures: Labs-CBC WBC/Hgb/Hct/Plts: 10.33/14.5/43.8/252 (09/25 2209) Labs-Chem 7([facility]) Bun/Creat/Cl/CO2/Glucose: 18/0.88/103/24/97 (09/25 2209) Na/K+/Phos/Mg/Ca: 135/4.1/3.4/1.9/9.5 (09/25 [...] ED. Continuous telemetry -PT, OT, Speech and professor of social work consults Other problems: Complexity. Obesity Body mass [...] note does not necessarily reflect the individual manager personnel selection. Please page with urgent questions, as IHIS Secure Chat is not a reliable method for urgent needs. Signed, Keisha Alcantara MD Neurology [facility] Work Phone: 1(571) 123-943802-23-2024 Miscellaneous Notes* Telephone Encounter - Ross Roldan LPN - 09/15/2023 8:27 AM EST Patient notified of results, verbalizes understanding of instructions. Ross Roldan LPN * Telephone Encounter - Gypsy Syed APRN.WRONG ADDRESS CLERK - 09/15/2023 7:33 AM EST Can you please call the patient and let him know that I reviewed his lab results. Vitamin D, B12, and folate were normal. TSH was elevated, I would recommend increasing Synthroid to175 mcg. Recheck labs in 8 weeks. Prescription was sent to [facility] in [place]. Please let me know if he has any questions. Thank you. The following approved medication requests have been transmitted electronically. Requested Prescriptions Signed Prescriptions Disp Refills levothyroxine (SYNTHROID) 175 mcg tablet 30 tablet 11 Sig: Take 1 tablet by mouth once daily. Take on empty stomach. For Thyroid. Authorizing Provider: GYPSY SYED APRN.CNP documented in this encounterRegency [facility]02-22-2024 History of Present illness Narrative* Gypsy Syed [...] APRN.CNP This note was partially generated using AxialMED voice recognition system. Note was reviewed for accuracy. There may be minor misspellings or grammar miscues with AxialMED voice recognition. documented in this encounterRegency Hospital Cleveland East02-22-2024 Instructions* Patient Instructions* Gypsy Syed APRN.CNP - 09/14/2023 12:40 PM EST Get labs completed Recommend consult with Sleep Medicine to discuss CPAP/ Sleep Apnea, Dr. Luna Unable to remove ear wax, recommend using Debrox ear drops twice daily for 5-7 days May follow up in the office for repeat ear flushing. Following up pending test results or sooner as needed. documented in this encounterRegency Hospital [facility] East02-02-2024 Miscellaneous Notes* Telephone Encounter - Laura Whaley [...] When form is completed, Fax form to [phone] Form has been forwarded to Physician Desk: Dr. Mango Youngblood Ma documented in this encounterRegency Hospital [facility] East02-02-2024 Miscellaneous Notes* Telephone Encounter - Mathew Cobian MD - 08/25/2023 11:36 AM EST Done in / phone note Mathew Cobian MD * Telephone Encounter - Mick Youngblood Ma - 08/17/2023 9:14 AM EST Office received form from [facility]. Member requesting a Grab bar. They are requesting an Rx for this item and recent OV notes. Printed recent OV notes with Brian Ahmadi CNP on 07/14/23. Please print Rx for Grab Bar. Once completed will fax back to [phone]. Mick Youngblood Ma documented in this encounterRegency Hospital [facility] East01-08-2024 History of Present illness Narrative* Claire Larson RT(R) - 07/31/2023 1:20 PM EST Radiology [...] 31, 2023 1:17 PM documented in this encounterRegency Hospital Cleveland East11-22-2023 Miscellaneous Notes* Telephone Encounter - Brian Ahmadi [...] 02/14/23 Levi Paniagua LPN documented in this encounterRegency Hospital Cleveland East09-25-2023 Miscellaneous Notes* Telephone Encounter - Laura Whaley Ma - 04/17/2023 1:14 PM EDT Office received fax from [facility] Dr. Conklin's office notifying officethat pt will not be accepted or seen by their office due to pt have to many no shows and cancellations. Laura Whaley Ma documented in this encounterRegency Hospital Cleveland East09-24-2023 Miscellaneous Notes* Telephone Encounter - Zoë Miller MA - 04/16/2023 7:50 AM EDT Patient has viewed results via [employer]. Zoë Miller MA * Telephone Encounter - Zoë Miller MA - 04/14/2023 7:39 AM EDT Left VM instructing patient to return call to receive results. Zoë Miller MA * Telephone Encounter - Abbe Adame APRN.CNP - 04/14/2023 7:19 AM EDT No significant growth continue treatment plan as discussed with provider. If symptoms worsen pleasefollow up with your primary care provider. documented in this encounterRegency Hospital Cleveland East09-20-2023 History of Present illness Narrative* Abbe Adame [...] Patient agreeable to treatment plan. Abbe Adame APRN.WRONG ADDRESS CLERK documented in this encounterRegency Hospital Cleveland East09-20-2023 Miscellaneous Notes* Telephone Encounter - Ashlyn London RN - 04/12/2023 11:13 AM EDT Patient reports he has UTI. Reports he is having burning w/urination, feels like full bladder but hardly anything comes out, urgency, frequency, since last night. Patient unsure if he can find ride into clinic, but agreeable to try, and will go to for evaluation. documented in this encounterRegency Hospital Cleveland East09-06-2023 History of Present illness Narrative* Calli Morris - 03/29/2023 12:34 PM EDT POPULATION HEALTH NAVIGATION OUTREACH Action/FYI [place] Support: Called pt to schedule an appt in Pain Management. Lvm for pt to call [phone] for scheduling. Patient Identified by Name and [...] 29, 2023 12:34 PM documented in this encounterRegency Hospital Cleveland East08-24-2023 Miscellaneous Notes* Telephone Encounter - Laura Whaley [...] advise, Uma Jett RN documented in this encounterRegency Hospital Cleveland East08-24-2023 Discharge summary Author Davy Turner [facility] March 16, 2023 1:25pm Note Date/Time March 16, 2023 1: 25pm [facility] Physical Therapy [facility] [address] [place] [address] / REHABILITATION SERVICES DISCHARGE SUMMARY MR#: [id number] Acct: [id number] Name: GOOD DE LUNA Rep #: [id number] : 1965 57 From: Davy Turner DPT, OCS, CSCS Referring Dr.: Dr. Mathew Cobian MD Status: REG RCR Insurance: MEDICARE PART A B [facility] Discharge Summary D/C summary: It has been [...] please feel free to call me at [phone]. Thank you for the referral of thispatient. Sincerely, Davy Turner, DPT, OCS, CSCS Balance/Gait/Functional tests Balance/Special Test Scores Lower Extremity Functional Score: 28 Improvement % Improvement: 75 <Electronically signed by Davy Turner DPT, OCS, CSCS> 03/16/23 1325 CC: Dr. Mathew Cobian MD ~ EBG Signed [facility] Work Phone: 1(527) 436-385207-01-2023 Miscellaneous Notes* Telephone Encounter - Laura Whaley Ma - 01/21/2023 8:17 AM EDT Faxed. Laura Whaley Ma * Telephone Encounter - Mathew Cobian MD - 01/20/2023 5:13 PM EDT Form and letter done Mathew Cobian MD * Telephone Encounter - Mick Youngblood Ma - 01/12/2023 1:35 PM EDT Type of form: Health & Wellness Membership Medical Freeze from [employer] (see note on fax) Form received via fax When form is completed, Fax form to [phone] Form has been forwarded to Physician Desk: [...] the letter is to [facility] thru [facility]. Please advise pt thru MyChart or phone. Arlene Trammell LPN documented in this encounterRegency Hospital Cleveland East06-12-2023 Miscellaneous Notes* Telephone Encounter - Mick Youngblood [...] continue driving privileges. Letter to continue his [employer] membership to maintain fitness. Mick Youngblood Ma [...] before. Please call Jaquan when created at [phone] documented in this encounterRegency Hospital Cleveland East05-30-2023 History of Present illness Narrative* Brian Ahmadi APRN.WRONG ADDRESS CLERK - 12/20/2022 10:20 AM EDT Chief Complaint [...] needed. This note was partly generated using PixSpreeon voice recognition dictation and may contain some misspelled or inaccurate words missed on review. documented in this encounterRegency Hospital Cleveland East05-04-2023 Miscellaneous Notes* Telephone Encounter - Laura Whaley Ma - 11/24/2022 2:35 PM EDT Form faxed back. Laura Whaley Ma * Telephone Encounter - Laura Whaley Ma - 11/24/2022 2:34 PM EDT Type of letter/form/fax request - Medical Necessity-CPAP supplies Form received from on fax floor and placed on MD desk (Dr. Cobian) for completion. Completed form needs to be faxed to [facility] at [phone]. Route to [place] when form completed for processing documented in this encounterRegency Hospital Cleveland East04-24-2023 Miscellaneous Notes* Addendum Note - Mathew Cobian [...] pt. Arlene Trammell LPN documented in this encounterReg[facility] Miscellaneous Notes* Telephone Encounter - Tyra Yung [...] Tyra Yung LPN * Telephone Encounter - Maya Naylor Pss - 09/16/2022 3:54 PM EST Patient calling requesting refill of Ativan he has 10 pills left from 6 months ago Patient uses pharmacy on file. [facility]un [facility] on [facility]. Patient would like a phone call to discuss commercial about a new medicine on market for Prostate Cancer Also when should patient follow up? documented in this encounterReg[facility]12-30-2022 Miscellaneous Notes* Telephone Encounter - Mathew Cobian [...] Thank you. Uma Zamudio documented in this encounterRegency Hospital [facility]11-18-2022 Miscellaneous Notes* Telephone Encounter - Mick Youngblood Ma - 06/10/2022 11:58 AM EST Pt sent Viropro message with information below. Made aware new [...] daily Mathew Cobian MD documented in this encounterRegency Hospital [facility]11-15-2022 Instructions* Patient Instructions* Mick Youngblood Ma - 06/07/2022 3:03 PM EST Take Vitamin D3 2,000 to 5,000 international unit(s) daily over the counter. Schedule Rheumatology appt. Schedule Neurology appt as ordered. Check labs today. documented in this encounterRegency Hospital [facility] East11-15-2022 History of Present illness Narrative* Mathew Cobian [...] was tested when he was at the [facility] for another flare up of Iritis. This [...] going through withdrawal. Pt has been in [facility] ED several times with admission. Notes [...] CPAP nightly. Does well. Gets supplies through [facility]. Vit D - Daily Vitamin D3 50,000 [...] Past Histories independently gathered by the clinical operations support professionals and the remaining scribed note accurately describes [...] PM. Mick Youngblood Ma documented in this encounterRegency Hospital [facility]09-28-2022 Miscellaneous Notes* Telephone Encounter - Uma Zamudio - 04/20/2022 11:13 AM EDT Appointment changed as directed. Uma Zamudio * Telephone Encounter - Tyra Yung LPN - 04/20/2022 11:05 AM EDT Okay to make today's visit a telephone visit instead. Please change. Patient is aware. Patient can be reached at [phone]. Tyra Yung LPN * Telephone Encounter - Sofia Moreira - 04/20/2022 10:44 AM EDT Pt would like to know if he could have a phone visit instead of a VV today. He has some transportation conflicts. documented in this encounterRegency Hospital [facility]09-27-2022 History of Present illness Narrative* Helder Sibley DO - 04/19/2022 4:57 PM EDT TELEPHONE VISIT 10 minutes PSA down to 1.45 DX: prostate cancer PLAN: Repeat PSA in 6 months. Helder Sibley DO documented in this encounterRegency Hospital [facility]08-11-2022 Miscellaneous Notes* Telephone Encounter - Fitz Espino [...] and advise. Sofia Moreira documented in this encounterRegency Hospital [facility]08-10-2022 History of Present illness Narrative* Laura Whaley Ma - 03/02/2022 2:04 PM EDT TRANSITION CARE MANAGEMENT (TCM) INITIAL CONTACT Petroleum Engineer Outreach Provider Action/FYI: 14 day TCM He [...] might be hidden SUMMARY: -Pt discharged from [facility] on 03/01/22. -Admitted for: Alcohol abuse Below copied from [facility]: Chief Complaint: Substance Abuse Narrative Narrative: 56-year-old [...] him to follow-up at the counseling center [facility] outpatient. Upon conversation it sounds like the [...] for provider to review documented in this encounterRegency Hospital [facility]07-28-2022 Miscellaneous Notes* Telephone Encounter - Sofia Munoz - 02/17/2022 4:09 PM EDT Received verbal order for physical therapy orders [facility] in [place], Sent to Dr. Ardon for signaturethen fax to [phone] documented in this encounterRegency Hospital [facility]06-27-2022 Miscellaneous Notes* Telephone Encounter - Sarah Edmondson LPN - 01/17/2022 8:07 AM EDT Left detailed message on VM. Sarah Edmondson LPN * Telephone Encounter - Hardik Spain DO - 01/15/2022 4:17 PM EDT Good news. Can let him know the area in the left pelvis bone is unchanged and therefore benign. Follow up as scheduled. Hardik Spain DO documented in this encounterRegency Hospital [facility] East06-24-2022 History of Present illness Narrative* Hardik Spain [...] performed concurrently and will be reported separately. Medic Technician (topogram) images: No additional findings. IMPRESSION: No [...] appearance. No pericardial effusion or pericardial thickening. Medic Technician (topogram) images: No additional findings. IMPRESSION: Sclerotic [...] Staff Review Reviewed by Lindsay Payne MD ([id number]) MPA IgG, Serum 700 - 1,600 mg/dL 1,150 MPA IgA, Serum 70 - 400 mg/dL 391 MPA IgM, Serum 40 - 230 mg/dL 113 [place] Free, Serum 3.30 - 19.40 mg/L 22.9 (H) Lambda Free, Serum 5.7 - 26.3 mg/L 18.8 K/L Ratio, Serum 0.26 - 1.65 1.22 MPA Result No M protein is identified. No M protein is identified. Staff Review (MPA) Reviewed by Lindsay Payne MD ([id number]) WSR was 10 mm/hr on 05/20/2021 CRP [...] Abs Lymph 1.00 - 4.00 k/uL 1.80 Asotin% % 7.1 Abs Asotin <0.87 k/uL 0.78 Eosin% % 0.9 Abs [...] bones. -Previously reviewed with Ortho oncology at [facility]. Follow-up plain film of the pelvis was [...] necessary. Hardik Spain DO documented in this encounterRegency Hospital [facility]06-24-2022 History of Present illness Narrative* RT Jonathan(R) [...] 14, 2022 10:32 AM documented in this encounterRegency Hospital [facility] East06-03-2022 Miscellaneous Notes* Telephone Encounter - Mick Youngblood Ma - 12/24/2021 11:37 AM EDT Pt rx faxed to [facility]. States that he's been receiving his supplies from there without issues. Faxed to [phone]. Mick Youngblood Ma * Telephone Encounter - [...] information below from TE 08/30/21. Ramón from [facility] calling to state due to insurance and due to patient having 2 failed compliance periods, they are unable to provide supplies for patient. [facility] Pt previously got supplies through [facility] from note back on 01/05/18. Mick Youngblood Ma documented in this encounterRegency Hospital [facility]06-01-2022 Miscellaneous Notes* Telephone Encounter - Sofai Munoz - 12/22/2021 4:06 PM EDT Home health care plans have been fax to [facility] Atttorrey_ uma Macias Rn at [phone] * Telephone Encounter - Sofia Munoz - 12/22/2021 3:52 PM EDT Received home health plan of care and certification paperwork from [facility] Sent to Dr. Ardon for review, fax back to [phone] documented in this encounterRegency Hospital [facility]05-23-2022 Miscellaneous Notes* Telephone Encounter - Brian Ahmadi [...] on empty stomach. For Thyroid. JUDITH: No GUILHERME-04/16/21 Labs-09/22/21 NOV-none med filled 04/16/21 ends 09/22/21 Please review and advise. Ross Roldan LPN documented in this encounterRegency Hospital [facility] East05-21-2022 Miscellaneous Notes* Telephone Encounter - Merlyn Rutherford [...] SYMPTOMS: Denies Protocols used: BLOOD PRESSURE - [id number] documented in this encounterRegency Hospital [facility]05-06-2022 Miscellaneous Notes* Telephone Encounter - Mathew Cobian [...] notify patient. Indy Berumen documented in this encounterRegency Hospital [facility] East04-06-2022 Miscellaneous Notes* Telephone Encounter - Patricia Jeffers MA - 10/27/2021 10:24 AM EDT Type of letter/form/fax request - Home Health Certification and Plan of [facility] and placed on MD desk () for completion. Completed form needs to be faxed to [phone]. Route to PA when form completed for processing Patricia Jeffers MA documented in this [facility]08-26-2021 History of Present illness Narrative* Juju [...] 18, 2021 1:48 PM documented in this encounterAC[facility] + [facility] No data available for this section [facility] Evaluation note* Diagnosis Sleep apnea, unspecified type- Primary documented in this encounter [facility]* Diagnosis Abnormal x-ray of pelvis- Primary Nonspecific (abnormal) findings on radiological and other examination of abdominal area, including retroperitoneum documented in this encounter [facility] note* Diagnosis Abnormal x-ray of pelvis Nonspecific (abnormal) findings on radiological and other examination of abdominal area, including retroperitoneum documented in this encounter [facility] noteNo assessment information availableWSumma Health [facility] Work Phone: Evaluation note* Diagnosis Prostate cancer (HCC) Malignant neoplasm of prostate documented in this encounter [facility] note* Diagnosis Malignant neoplasm of prostate (HCC)- Primary Malignant neoplasm of prostate documented in this encounter [facility] note* Diagnosis Cerebral palsy, unspecified type (HCC)- [...] to other disease documented in this encounter [facility] note* Diagnosis Hypothyroidism, unspecified type- Primary documented in this encounter [facility] note* Diagnosis Prostate cancer (HCC) Malignant neoplasm of prostate documented in this encounter [facility] note* Diagnosis Hypothyroidism, unspecified type- Primary Vitamin D deficiency Unspecified vitamin D deficiency Alcohol use GERD without esophagitis Esophageal reflux [facility]* Diagnosis Cerebral palsy, unspecified type (HCC)- Primary Congenital diplegia (HCC) Congenital diplegia Hypothyroidism, unspecified type GERD without esophagitis Esophageal reflux Anxiety Anxiety state, unspecified JODEE (obstructive sleep apnea) Obstructive sleep apnea (adult) (pediatric) Prostate cancer (HCC) Malignant neoplasm of prostate Vitamin D deficiency Unspecified vitamin D deficiency Recurrent major depressive disorder, remission status unspecified (HCC) documented in this encounter [facility] note* Diagnosis Chronic bilateral low back pain with right-sided sciatica- Primary [facility]* Diagnosis Urinary frequency- Primary Prostatitis, acute Acute prostatitis documented [facility]* Diagnosis JODEE (obstructive sleep apnea)- Primary Obstructive sleep apnea (adult) (pediatric) Bilateral impacted cerumen Impacted cerumen Brain fog Hypothyroidism, unspecified type Vitamin D deficiency Unspecified vitamin D deficiency [facility]* Diagnosis Hypothyroidism, unspecified type- Primary documented in this encounter [facility] note* Diagnosis Developmental venous anomaly- Primary Congenital anomaly of the peripheral vascular system, unspecified site Developmental venous anomaly Congenital anomaly of the peripheral vascular system, unspecified site Pre-syncope Syncope and collapse [facility] encounter [facility]* Diagnosis Hospital discharge follow-up- Primary Other follow-up examination Screening for colon cancer Special screening for malignant neoplasms, colon Chronic bilateral low back pain with right-sided sciatica Dizziness Dizziness and giddiness Cerebral palsy, unspecified type (HCC) Recurrent major depressive disorder, remission status unspecified (HCC) Prostate cancer (HCC) Malignant neoplasm of prostate documented [facility] this encounter [facility]* Diagnosis Pain in right testicle- Primary Unspecified disorder of male genital organs Right groin pain Abdominal pain, right lower quadrant documented [facility] this encounter [facility]* Diagnosis Pain in right testicle Unspecified disorder of male genital organs documented [facility] this encounter [facility]* Diagnosis Hypothyroidism, unspecified type documented [facility]* Diagnosis Anxiety Anxiety state, unspecified documented [facility] this encounter [facility]* Diagnosis Hypothyroidism, unspecified type documented [facility]* Diagnosis Irritability- Primary Anxiety Anxiety state, unspecified Memory changes Memory loss Hypothyroidism, unspecified type Sensation of fullness in both ears Cerebral palsy, unspecified type ([facility]LY [facility]) Alcohol use documented in this encounter [facility]* Diagnosis GERD without esophagitis Esophageal reflux documented in this encounter [facility]* Diagnosis Rash- Primary Rash and other nonspecific skin eruption documented in this encounter [facility] note* Diagnosis Prostate cancer (HCC) Malignant neoplasm of prostate documented in this encounter [facility] note* Diagnosis Hypothyroidism, unspecified type- Primary Recurrent major depressive disorder, remission status unspecified (HCC) MANNY (generalized anxiety disorder) Generalized anxiety disorder Memory loss documented in this encounter [facility] note* Diagnosis Dizziness and giddiness- Primary documented [facility] encounter [facility]* Diagnosis Recurrent major depressive disorder, remission status unspecified (HCC)- Primary MANNY (generalized anxiety disorder) Generalized anxiety disorder Hypothyroidism, unspecified type documented in this encounter [facility] note* Diagnosis Hypothyroidism, unspecified type- Primary documented in this encounter [facility] note* Diagnosis Hypothyroidism, unspecified type- Primary Memory loss Neck mass Swelling, mass, or lump in head and neck documented in this encounter [facility] note* Diagnosis Hypothyroidism, unspecified type documented [facility] encounter [facility]* Diagnosis Pain Generalized pain documented in this encounter [facility]* Diagnosis Diverticulitis- Primary Diverticulitis of colon (without mention of hemorrhage) Bloody stools Blood in stool Encounter for immunization Need for other specified prophylactic vaccination against single bacterial disease Diverticulitis- Primary Diverticulitis of colon (without mention of hemorrhage) Bloody stools Blood in stool documented [facility] encounter [facility]* Diagnosis Prostate cancer (HCC)- Primary Malignant neoplasm of prostate Diverticulitis- Primary Diverticulitis of colon (without mention of hemorrhage) Bloody stools Blood in stool documented [facility]* Diagnosis Diverticulitis- Primary Diverticulitis of colon (without mention of hemorrhage) Bloody stools Blood in stool documented [facility]* Diagnosis Blood in stool- Primary Diverticulitis Diverticulitis of colon (without mention of hemorrhage) Bloody stools Blood in stool Rectal bleeding- Primary Hemorrhage of rectum and anus documented [facility] this encounter [facility]* Diagnosis Rectal bleeding- Primary Hemorrhage of rectum and anus Diverticulitis Diverticulitis of colon (without mention of hemorrhage) Bloody stools Blood in stool documented in this encounter [facility] note* Diagnosis Abrasion of lower leg, unspecified laterality, initial encounter- Primary documented in this encounter [facility]* Diagnosis History of colonic polyps- Primary Personal history of colonic polyps documented in this encounter [facility]* Diagnosis Confusion- Primary Unspecified psychosis documented in this encounter [facility]* Diagnosis Congenital malformation- Primary Congenital anomaly, unspecified Venous anomaly Congenital anomaly of the peripheral vascular system, unspecified site documented in this encounter [facility] note* Diagnosis Hypothyroidism, unspecified type- Primary Recurrent major depressive disorder, remission status unspecified (HCC) Anxiety Anxiety state, unspecified Confusion Unspecified psychosis documented in this encounter [facility] note* Diagnosis Hypothyroidism, unspecified type- Primary documented in this encounter [facility] note* Diagnosis Hospital discharge follow-up- Primary Other follow-up examination Closed fracture of proximal end of right fibula, unspecified fracture morphology, sequela Prostate cancer (HCC) Malignant neoplasm of prostate documented in this encounter [facility] note* Diagnosis Other closed fracture of proximal end of right fibula, initial encounter documented in this encounter [facility] note* Diagnosis Tobacco abuse Tobacco use disorder documented [facility]* Diagnosis Other closed fracture of proximal end of right fibula, initial encounter- Primary Other closed fracture of proximal end of right fibula, initial encounter documented in this encounter [facility] note* Diagnosis Other closed fracture of proximal end of right fibula, initial encounter- Primary documented in this encounter [facility] note* Diagnosis Other closed fracture of proximal end of right fibula with routine healing, subsequent encounter- Primary documented in this encounter [facility] note* Diagnosis Other closed fracture of proximal end of right fibula, initial encounter documented in this encounter [facility] note* Diagnosis Prostate cancer (HCC) Malignant neoplasm of prostate documented [facility] this encounter [facility]* Diagnosis Sore throat- Primary Acute pharyngitis [...] Anxiety state, unspecified documented in this encounter [facility]* Diagnosis Blood in stool- Primary Diverticulitis Diverticulitis of colon (without mention of hemorrhage) Fatigue, unspecified type Low energy Chronic bilateral low back pain with right-sided sciatica Hypothyroidism, unspecified type- Primary Recurrent major depressive disorder, remission status unspecified Anxiety Anxiety state, unspecified documented in this encounter [facility] for referral (narrative)* Diagnostic Procedure Only (Routine) - Authorized Specialty Diagnoses / Procedures [facility] To Contact XR IMAGING Diagnoses Abnormal x-ray of pelvis Procedures XR PELVIS 1V AP RADIOLOGIC EXAMINATION PELVIS 1/2 VIEWS Hardik Spain DO [address] [place] [address] Xr Imaging Referral ID Status Reason Start Date Expiration Date Visits Requested Visits Authorized [id number] Authorized Auto-Generat ed Referral 01/14/2022 02/13/2023 1 1 [facility] for referral (narrative)* Diagnostic Procedure Only (Routine) - Closed Specialty Diagnoses / Procedures [facility] Referred To Contact XR IMAGING Diagnoses Abnormal x-ray of pelvis Procedures XR PELVIS 1V AP RADIOLOGIC EXAMINATION PELVIS 1/2 VIEWS Hardik Spain DO [address] [place] [address] Xr Imaging Referral ID Status Reason Start Date Expiration Date V isits Requested Visits Authorized [id number] Closed Auto-Generate d Referral 10/13/2021 11/12/2022 1 1 [facility] for referral (narrative)* Consultation (Routine) - New Request Specialty Diagnoses / Procedures [facility] Referred To Contact Neurologic Surgery Diagnoses Developmental venous anomaly Herlinda Smith, FISHING ROD MARKER-WRONG ADDRESS CLERK [address] [place] [address] Referral ID Status Reason Start Date Expiration Date V isits Requested Visits Authorized [id number] New Request 09/28/2023 10/22/2024 1 1 * Radiology (Emergency) - New Request Specialty Diagnoses / Procedures Referred By Contac t Referred To Contact Procedures ECG Cristina Chan MD [address] [place] [address] Referral ID Status Reason Start Date Expiration Date V isits Requested Visits Authorized [id number] New Request 09/27/2023 10/21/2024 1 1 * (Routine) Specialty Diagnoses / Procedures Referred By Contac t Referred To Contact [address] [place] [address] Referral ID Status Reason Start Date Expiration Date Visits Re quested Visits Authorized * Unlisted Procedure Code (Routine) - New Request Specialty Diagnoses / Procedures Referred By Contac t Referred To Contact Procedures DVT/VTE RISK ASSESSMENT Cristina Chan MD [address] [place] [address] Referral ID Status Reason Start Date Expiration Date V isits Requested Visits Authorized [id number] New Request 09/27/2023 10/21/2024 1 1 * Radiology (Emergency) - New Request Specialty Diagnoses / Procedures Referred By Contac t Referred To Contact Procedures ECG Jacqui Ron MD [address] [place] [address] Referral ID Status Reason Start Date Expiration Date V isits Requested Visits Authorized [id number] New Request 09/26/2023 10/20/2024 1 1 * Radiology (Emergency) - New Request Specialty Diagnoses / Procedures Referred By Contac t Referred To Contact Procedures ECG Evan Burnham MD [address] [facility] [address] [place] [address] Referral ID Status Reason Start Date Expiration Date V isits Requested Visits Authorized [id number] New Request 09/26/2023 10/20/2024 1 1 * Unlisted Procedure Code (Routine) - New Request Specialty Diagnoses / Procedures Referred By Contac t Referred To Contact Procedures NO PHARMACOLOGICAL DVT PROPHYLAXIS Annette Santoyo APRN-CNP [address] [place] [address] Referral ID Status Reason Start Date Expiration Date V isits Requested Visits Authorized [id number] New Request 09/27/2023 10/21/2024 1 1 * Unlisted Procedure Code (Routine) - New Request Specialty Diagnoses / Procedures Referred By Contac t Referred To Contact Procedures DVT/VTE RISK ASSESSMENT Annette Santoyo APRN-CNP [address] [place] [address] Referral ID Status Reason Start Date Expiration Date V isits Requested Visits Authorized [id number] New Request 09/27/2023 10/21/2024 1 1 * Radiology (Routine) - New Request Specialty Diagnoses / Procedures Referred By Contac t Referred To Contact Procedures ECG Annette Santoyo APRN-CNP [address] [place] [address] Referral ID Status Reason Start Date Expiration Date V isits Requested Visits Authorized [id number] New Request 09/27/2023 10/21/2024 1 1 [facility] for referral (narrative)* Diagnostic Procedure Only (Urgent) - Closed Specialty Diagnoses / Procedures Referred By Contac t Referred To Contact US IMAGING Diagnoses Pain in right testicle Procedures US SCROTUM AND CONTENTS US SCROTUM & CONTENTS Barbara Quarles APRN.WRONG ADDRESS CLERK [address] [place] [address] [place] [address] Referral ID Status Reason Start Date Expiration Date V isits Requested Visits Authorized [id number] Closed Auto-Generate d Referral 11/01/2023 11/30/2024 1 1 [facility] for referral (narrative)* Diagnostic Procedure Only (Urgent) - Closed Specialty Diagnoses / Procedures Referred By Contac t Referred To Contact US IMAGING Diagnoses Pain in right testicle Procedures US SCROTUM AND CONTENTS US SCROTUM & CONTENTS Barbara Quarles APRN.WRONG ADDRESS CLERK [address] [place] [address] [place] [address] Referral ID Status Reason Start Date Expiration Date V isits Requested Visits Authorized [id number] Closed Auto-Generate d Referral 11/01/2023 11/30/2024 1 1 [facility] for referral (narrative)* Diagnostic Procedure Only (Routine) - Authorized Specialty Diagnoses / Procedures Referred By Contac t Referred To Contact US IMAGING Diagnoses Neck mass Procedures US HEAD/NECK SOFT TISSUE OTHER US SOFT TISSUE HEAD & NECK REAL TIME IMGE Gypsy Guillory APRN.WRONG ADDRESS CLERK [address] [place] [address] [place] [address] Referral ID Status Reason Start Date Expiration Date Visits Requested Visits Authorized [id number] Authorized Auto-Generat ed Referral 04/17/2024 05/17/2025 1 1 [facility] for referral (narrative)* Diagnostic Procedure Only (Routine) - Closed Specialty Diagnoses / Procedures Referred By Contac t Referred To Contact XR IMAGING Diagnoses Pain Procedures XR HIP BILAT 5V PEL/AP/LAT EACH HIP RADEX HIPS BILATERAL WITH PELVIS MINIMUM 5 VIEWS Gerardo Lopez PA-C [facility] [place] [address] X[facility] [place] [address] Referral ID Status Reason Start Date Expiration Date V isits Requested Visits Authorized [id number] Closed Auto-Generate d Referral 03/15/2021 04/14/2022 1 1 [facility] for referral (narrative)* Outpatient Procedure (Routine) - Authorized Specialty Diagnoses / Procedures Referred By Contac t Referred To Contact [facility] Diagnoses Diverticulitis Bloody stools Procedures COLONOSCOPY DIAGNOSTIC COLONOSCOPY FLX DX W/COLLJ SPEC WHEN PFRMD Gilson Bar, DO [address] [place] [address] [facility] [address] [place], [place] [id number] Referral ID Status Reason Start Date Expiration Date Visits Requested Visits Authorized [id number] Authorized Auto-Generat ed Referral 05/08/2025 1 1 [facility] for referral (narrative)* Outpatient Procedure (Routine) - Closed Specialty Diagnoses / Procedures Referred By Contac t Referred To Contact [facility] Diagnoses Diverticulitis Bloody stools Procedures COLONOSCOPY DIAGNOSTIC COLONOSCOPY FLX DX W/COLLJ SPEC WHEN PFRMD Gilson Bar, DO [address] [place] [address] [facility] [address] [place], [place] [id number] Referral ID Status Reason Start Date Expiration Date V isits Requested Visits Authorized [id number] Closed Auto-Generate d Referral 05/08/2024 05/08/2025 1 1 [facility] for referral (narrative)* Diagnostic Procedure Only (Routine) - Closed Specialty Diagnoses / Procedures Referred By Contac t Referred To Contact XR IMAGING Diagnoses Other closed fracture of proximal end of right fibula, initial encounter Procedures XR TIBIA FIBULA 2V AP/LAT RIGHT RADIOLOGIC EXAMINATION TIBIA & FIBULA 2 VIEWS Tammie Benitez PA-C [address] [place] [address] [place] [address] Referral ID Status Reason Start Date Expiration Date V isits Requested Visits Authorized [id number] Closed Auto-Generate d Referral 07/29/2024 08/28/2025 1 1 [facility] for referral (narrative)* Diagnostic Procedure Only (Routine) - New Request Specialty Diagnoses / Procedures Referred By Contac t Referred To Contact XR IMAGING Diagnoses Other closed fracture of proximal end of right fibula, initial encounter Procedures XR TIBIA FIBULA 2V AP/LAT RIGHT RADIOLOGIC EXAMINATION TIBIA & FIBULA 2 VIEWS Tammie Benitez PA-C [address] [place] [address] [place] [address] Referral ID Status Reason Start Date Expiration Date Visits Requested Visits Authorized [id number] New Request Auto-Generat ed Referral 08/20/2024 09/19/2025 1 1 [facility] for referral (narrative)No reason for referral information availableWSumma [facility] Work Phone: Reason for visit Narrative* Diagnostic Procedure Only (Routine) - Closed Specialty Diagnoses / Procedures Referred By Contac t Referred To Contact XR IMAGING Diagnoses Abnormal x-ray of pelvis Procedures XR PELVIS 1V AP RADIOLOGIC EXAMINATION PELVIS 1/2 VIEWS Hardik Spain DO [address] [place] [address] X[facility] Imaging Referral ID Status Reason Start Date Expiration Date V isits Requested Visits Authorized [id number] Closed Auto-Generate d Referral 10/13/2021 11/12/2022 1 1 [facility] for visit Narrative* Diagnostic Procedure Only (Urgent) - Closed Specialty Diagnoses / Procedures Referred By Contac t Referred To Contact US IMAGING Diagnoses Pain in right testicle Procedures US SCROTUM AND CONTENTS US SCROTUM & CONTENTS Barbara Quarles, FISHING ROD MARKER.WRONG ADDRESS CLERK [address] [place] [address] [place] [address] Referral ID Status Reason Start Date Expiration Date V isits Requested Visits Authorized [id number] Closed Auto-Generate d Referral 11/01/2023 11/30/2024 1 1 [facility] for visit Narrative* Outpatient Procedure (Routine) - Closed Specialty Diagnoses / Procedures Referred By Contac t Referred To Contact [facility] Diagnoses Diverticulitis Bloody stools Procedures COLONOSCOPY DIAGNOSTIC COLONOSCOPY FLX DX W/COLLJ SPEC WHEN PFRMD Gilson Bar, DO [address] [place] [address] [facility] [address] [place] [phone] Referral ID Status Reason Start Date Expiration Date V isits Requested Visits Authorized [id number] Closed Auto-Generate d Referral 05/08/2024 05/08/2025 1 1 [facility] for visit Narrative* Diagnostic Procedure Only (Routine) - Closed Specialty Diagnoses / Procedures Referred By Contac t Referred To Contact XR IMAGING Diagnoses Other closed fracture of proximal end of right fibula, initial encounter Procedures XR TIBIA FIBULA 2V AP/LAT RIGHT RADIOLOGIC EXAMINATION TIBIA & FIBULA 2 VIEWS Tammie Benitez PA-C [address] [place] [address] [place] [address] Referral ID Status Reason Start Date Expiration Date V isits Requested Visits Authorized [id number] Closed Auto-Generate d Referral 07/29/2024 08/28/2025 1 1 [facility] for visit Narrative* Diagnostic Procedure Only (Routine) - Closed Specialty Diagnoses / Procedures Referred By Adenike ferguson Referred To Contact XR IMAGING Diagnoses Other closed fracture of proximal end of right fibula, initial encounter Procedures XR TIBIA FIBULA 2V AP/LAT RIGHT RADIOLOGIC EXAMINATION TIBIA & FIBULA 2 VIEWS Tammie Benitez PA-C [address] [place] [address] [place] [address] Referral ID Status Reason Start Date Expiration Date V isits Requested Visits Authorized [id number] Closed Auto-Generate d Referral 08/20/2024 09/19/2025 1 1 [facility] MRI/CT (Routine) - Closed Specialty Diagnoses / Procedures Referred By Adenike ferguson Referred To Contact MR IMAGING Diagnoses Prostate cancer (HCC) Procedures MRI PROSTATE WO/W IVCON MRI PELVIS W/O & W/CONTRAST MATERIAL Raphael Calderon Jr., MD [address] [place] [address] Phone: tel: fax: [place] [address] Referral ID Status Reason Start Date Expiration Date V isits Requested Visits Authorized [id number] Closed Auto-Generate d Referral 03/12/2024 04/11/2025 1 1 [facility] Summary Purpose Family History No Family History Records Found Relationship Condition Age at Onset Recorded Date/T сергей Not Specified Diabetes mellitus Unknown Relationship Condition Age at Onset Recorded Date/T сергей Not Specified Diabetes mellitus Unknown Malignant neoplasm Unknown Advance Directives No Advanced Directives Records FoundDocuments on File Type Date Recorded Patient Inspector Assembly Expl anation Advance Directive(s) Advance Directive(s) 09/22/2021 12:25 PM Advance Directive(s) 09/07/2021 11:52 AM Advance Directive(s) 02/09/2019 9:49 PM Documents on File Type Date Recorded Patient Inspector Assembly Expl anation Advance Directive(s) Advance Directive(s) 09/22/2021 12:25 PM Advance Directive(s) 09/07/2021 11:52 AM Advance Directive(s) 02/09/2019 9:49 PM Advance Directive Response Recorded Date/ Time Advance Directives No March 12:14pm Living Will No February 27, 2022 12:43pm Power of Hot Metal Crane Operator No February 27 12:43pm Advance Directive Response Recorded Date/ Time Advance Directives No March 12:14pm Living Will No February 27, 2022 6:01pm Power of Hot Metal Crane Operator No February 27 6:01pm Latest Code Status on File Code Status Date Activated Date Inactivated Comments Full Code 09/27/2023 12:30 AM Advance Directive Response Recorded Date/ Time Living Will No July 22, 7:04pm Do you have a Healthcare Power of Hot Metal Crane Operator? No July 22, 2024 7:04pm Living Will No November 05, 2024 8:19pm Do you have a Healthcare Power of Hot Metal Crane Operator? No November 05, 2024 8:19pm Advance Directives [...] type (HCC) Procedures CONSULT TO NEUROLOGY OFFICE/OUTPATIENT [facility] 60-74 MINUTES Mathew Cobian MD [address] [place] [address] Referral ID Status Reason Start Date Expiration Date Visits Requested Visits Authorized [id number] Authorized PCP Requested Referral 2 06/07/2023 1 1 Specialty Diagnoses / Procedures Referred By Contac t Referred To Contact Rheumatology Diagnoses HLA B27 (HLA B27 positive) Procedures CONSULT TO RHEUM/IMMUN DISEASE OFFICE/OUTPATIENT [facility] 60-74 MINUTES Mathew Cobian MD [address] [place] [address] Referral ID Status Reason Start Date Expiration Date Visits Requested Visits Authorized [id number] Authorized PCP Requested Referral 2 06/07/2023 1 1 Specialty Diagnoses / Procedures Referred By Contac t Referred To Contact Pain Management Diagnoses Chronic bilateral low back pain with right-sided sciatica Procedures CONSULT TO PAIN MGT OFFICE/OUTPATIENT [facility] 60-74 MINUTES Mathew Cobian MD [address] [place] [address] Referral ID Status Reason Start Date Expiration Date Visits Requested Visits Authorized [id number] Authorized PCP Requested Referral 03/16/2023 03/15/2024 1 1 Specialty Diagnoses / Procedures Referred By Contac t Referred To Contact Diagnoses JODEE (obstructive sleep apnea) Procedures CONSULT TO SLEEP MEDICINE - ADULT OFFICE/OUTPATIENT [facility] 60 MINUTES Gypsy Syed APRN.CNP [address] [place] [address] Referral ID Status Reason Start Date Expiration Date Visits Requested Visits Authorized [id number] Authorized PCP Requested Referral 09/14/2023 09/13/2024 1 1 Specialty Diagnoses / Procedures Referred By Contac t Referred To Contact Ent - Otolaryngology Diagnoses Dizziness Procedures CONSULT TO ENT OFFICE/OUTPATIENT [facility] 60 MINUTES Mathew Cobian MD [address] [place] [address] Referral ID Status Reason Start Date Expiration Date Visits Requested Visits Authorized [id number] Authorized PCP Requested Referral 10/17/2023 10/16/2024 1 1 Specialty Diagnoses / Procedures Referred By Contac t Referred To Contact [facility] Diagnoses Chronic bilateral low back pain with right-sided sciatica Cerebral palsy, unspecified type (HCC) Procedures CONSULT TO PHYSICAL THERAPY PHYSICAL THERAPY EVALUATION HIGH COMPLEX 45 MINS Mathew Cobian MD [address] [place] [address] [facility] [place] [address] [place] [address] Referral ID Status Reason Start Date Expiration Date Visits Requested Visits Authorized [id number] Authorized PCP Requested Referral Auto-Generate d Referral 10/17/2023 10/16/2024 99 99 Specialty Diagnoses / Procedures Referred By Contac t Referred To Contact Pain Management Diagnoses Chronic bilateral low back pain with right-sided sciatica Procedures CONSULT TO PAIN MGT OFFICE/OUTPATIENT [facility] 60 MINUTES Mathew Cobian MD [address] [place] [address] Referral ID Status Reason Start Date Expiration Date Visits Requested Visits Authorized [id number] Authorized PCP Requested Referral 10/17/2023 10/16/2024 1 1 Specialty Diagnoses / Procedures Referred By Contac t Referred To Contact General Surgery Diagnoses Screening for colon cancer Procedures CONSULT TO GENERAL SURGERY OFFICE/OUTPATIENT [facility] 60 MINUTES Mathew Cobian MD [address] [place] [address] Referral ID Status Reason Start Date Expiration Date Visits Requested Visits Authorized [id number] Authorized PCP Requested Referral 10/17/2023 10/16/2024 1 1 Specialty Diagnoses / Procedures Referred By Contac t Referred To Contact Neurology Diagnoses Memory changes Procedures CONSULT TO NEUROLOGY OFFICE/OUTPATIENT [facility] M[facility] 60 MINUTES Gypsy Syed APRN.WRONG ADDRESS CLERK [address] [place] [address] Referral ID Status Reason Start Date Expiration Date Visits Requested Visits Authorized [id number] Authorized PCP Requested Referral 12/14/2023 12/13/2024 1 1 Specialty Diagnoses / Procedures Referred By Contac t Referred To Contact MR IMAGING Diagnoses Prostate cancer (HCC) Procedures MRI PROSTATE WO/W IVCON MRI PELVIS W/O & W/CONTRAST MATERIAL Raphael Calderon Jr., MD [facility] [place] [address] [place] [address] Referral ID Status Reason Start Date Expiration Date Visits Requested Visits Authorized [id number] Authorized Auto-Generat ed Referral 03/12/2024 04/11/2025 1 1 Specialty Diagnoses / Procedures Referred By Contac t Referred To Contact Ent - Otolaryngology Diagnoses Dizziness and giddiness Procedures CONSULT TO ENT OFFICE/OUTPATIENT [facility] MDM 60 MINUTES Brian Ahmadi APRN.WRONG ADDRESS CLERK [address] [place] [address] Referral ID Status Reason Start Date Expiration Date Visits Requested Visits Authorized [id number] Authorized PCP Requested Referral 04/04/2024 04/04/2025 1 1 Specialty Diagnoses / Procedures Referred By Contac t Referred To Contact General Surgery Diagnoses Diverticulitis Bloody stools Procedures CONSULT TO GENERAL SURGERY OFFICE/OUTPATIENT [facility] 60 MINUTES Brian Ahmadi, FISHING ROD MARKER.WRONG ADDRESS CLERK [address] [place] [address] Referral ID Status Reason Start Date Expiration Date Visits Requested Visits Authorized [id number] Authorized PCP Requested Referral 04/30/2024 04/30/2025 1 1 Specialty Diagnoses / Procedures Referred By Contac t Referred To Contact Neurosurgery Diagnoses Confusion Procedures CONSULT TO NEUROSURGERY OFFICE/OUTPATIENT [facility] 60 MINUTES Devi Cisse MD [address] [place] [address] Referral ID Status Reason Start Date Expiration Date Visits Requested Visits Authorized [id number] Authorized PCP Requested Referral 4 06/03/2025 1 1 Specialty Diagnoses / Procedures Referred By Contac t Referred To Contact [facility] Diagnoses Confusion Procedures EPIL EEG ROUTINE ELECTROENCEPHALOGRAM REC COMA/SLEEP ONLY Devi Cisse MD [address] [place] [address] [facility] [place] [address] [place] [address] Referral ID Status Reason Start Date Expiration Date Visits Requested Visits Authorized [id number] New Request Auto-Generat ed Referral 4 06/03/2025 1 1 Additional Source Comments (unrecognized sect ion and content) No Status Records FoundNo Status Records FoundNo Status Records FoundNo Status Records FoundNo Status Records FoundNo Status Records FoundNo Status Records FoundNo Status Records Found INFORMATION SOURCE (unrecogn ized section and content) DATE CREATED AUTHOR 06/28/2019 [facility] DATE CREATED AUTHOR AUTHOR'S ORGANIZ ATION 10/08/2023 [facility] DATE CREATED AUTHOR AUTHOR'S ORGANIZ ATION 10/12/2023 [facility] DATE CREATED AUTHOR AUTHOR'S ORGANIZ ATION 05/16/2024 [facility] DATE CREATED AUTHOR AUTHOR'S ORGANIZ ATION 08/02/2024 [facility] DATE CREATED AUTHOR AUTHOR'S ORGANIZ ATION 11/02/2024 [facility] DATE CREATED AUTHOR AUTHOR'S ORGANIZ ATION 11/10/2024 [facility] DATE CREATED AUTHOR AUTHOR'S ORGANIZ ATION 01/18/2025 [facility] Source Comments (unrecognize d section and content) In the event this informatio n is protected by the Federal Confidentiality of Alcohol and Drug Abuse Patient Records regulations: The Federal rules restrict any use of the information to criminally investigate or prosecute any alcohol or drug abuse patient.[facility] the event this information is protected by the Federal Confidentiality of Alcohol and Drug Abuse Patient Records regulations: The Federal rules restrict any use of the information to criminally investigate or prosecute any alcohol or drug abuse patient.[facility] the event this information is protected by the Federal Confidentiality of Alcohol and Drug Abuse Patient Records regulations: The Federal rules restrict any use of the information to criminally investigate or prosecute any alcohol or drug abuse patient.[facility] the event this information is protected by the Federal Confidentiality of Alcohol and Drug Abuse Patient Records regulations: The Federal rules restrict any use of the information to criminally investigate or prosecute any alcohol or drug abuse patient.[facility] the event this information is protected by the Federal Confidentiality of Alcohol and Drug Abuse Patient Records regulations: The Federal rules restrict any use of the information to criminally investigate or prosecute any alcohol or drug abuse patient.[facility] the event this information is protected by the Federal Confidentiality of Alcohol and Drug Abuse Patient Records regulations: The Federal rules restrict any use of the information to criminally investigate or prosecute any alcohol or drug abuse patient.[facility] the event this information is protected by the Federal Confidentiality of Alcohol and Drug Abuse Patient Records regulations: The Federal rules restrict any use of the information to criminally investigate or prosecute any alcohol or drug abuse patient.[facility] the event this information is protected by the Federal Confidentiality of Alcohol and Drug Abuse Patient Records regulations: The Federal rules restrict any use of the information to criminally investigate or prosecute any alcohol or drug abuse patient.[facility] the event this information is protected by the Federal Confidentiality of Alcohol and Drug Abuse Patient Records regulations: The Federal rules restrict any use of the information to criminally investigate or prosecute any alcohol or drug abuse patient.[facility] the event this information is protected by the Federal Confidentiality of Alcohol and Drug Abuse Patient Records regulations: The Federal rules restrict any use of the information to criminally investigate or prosecute any alcohol or drug abuse patient.[facility] the event this information is protected by the Federal Confidentiality of Alcohol and Drug Abuse Patient Records regulations: The Federal rules restrict any use of the information to criminally investigate or prosecute any alcohol or drug abuse patient.[facility] the event this information is protected by the Federal Confidentiality of Alcohol and Drug Abuse Patient Records regulations: The Federal rules restrict any use of the information to criminally investigate or prosecute any alcohol or drug abuse patient.[facility] the event this information is protected by the Federal Confidentiality of Alcohol and Drug Abuse Patient Records regulations: The Federal rules restrict any use of the information to criminally investigate or prosecute any alcohol or drug abuse patient.[facility] the event this information is protected by the Federal Confidentiality of Alcohol and Drug Abuse Patient Records regulations: The Federal rules restrict any use of the information to criminally investigate or prosecute any alcohol or drug abuse patient.[facility] the event this information is protected by the Federal Confidentiality of Alcohol and Drug Abuse Patient Records regulations: The Federal rules restrict any use of the information to criminally investigate or prosecute any alcohol or drug abuse patient.[facility] the event this information is protected by the Federal Confidentiality of Alcohol and Drug Abuse Patient Records regulations: The Federal rules restrict any use of the information to criminally investigate or prosecute any alcohol or drug abuse patient.[facility] the event this information is protected by the Federal Confidentiality of Alcohol and Drug Abuse Patient Records regulations: The Federal rules restrict any use of the information to criminally investigate or prosecute any alcohol or drug abuse patient.[facility] the event this information is protected by the Federal Confidentiality of Alcohol and Drug Abuse Patient Records regulations: The Federal rules restrict any use of the information to criminally investigate or prosecute any alcohol or drug abuse patient.[facility] the event this information is protected by the Federal Confidentiality of Alcohol and Drug Abuse Patient Records regulations: The Federal rules restrict any use of the information to criminally investigate or prosecute any alcohol or drug abuse patient.[facility] the event this information is protected by the Federal Confidentiality of Alcohol and Drug Abuse Patient Records regulations: The Federal rules restrict any use of the information to criminally investigate or prosecute any alcohol or drug abuse patient.[facility] the event this information is protected by the Federal Confidentiality of Alcohol and Drug Abuse Patient Records regulations: The Federal rules restrict any use of the information to criminally investigate or prosecute any alcohol or drug abuse patient.[facility] the event this information is protected by the Federal Confidentiality of Alcohol and Drug Abuse Patient Records regulations: The Federal rules restrict any use of the information to criminally investigate or prosecute any alcohol or drug abuse patient.[facility] the event this information is protected by the Federal Confidentiality of Alcohol and Drug Abuse Patient Records regulations: The Federal rules restrict any use of the information to criminally investigate or prosecute any alcohol or drug abuse patient.[facility] the event this information is protected by the Federal Confidentiality of Alcohol and Drug Abuse Patient Records regulations: The Federal rules restrict any use of the information to criminally investigate or prosecute any alcohol or drug abuse patient.[facility] the event this information is protected by the Federal Confidentiality of Alcohol and Drug Abuse Patient Records regulations: The Federal rules restrict any use of the information to criminally investigate or prosecute any alcohol or drug abuse patient.[facility] the event this information is protected by the Federal Confidentiality of Alcohol and Drug Abuse Patient Records regulations: The Federal rules restrict any use of the information to criminally investigate or prosecute any alcohol or drug abuse patient.[facility] the event this information is protected by the Federal Confidentiality of Alcohol and Drug Abuse Patient Records regulations: The Federal rules restrict any use of the information to criminally investigate or prosecute any alcohol or drug abuse patient.[facility] the event this information is protected by the Federal Confidentiality of Alcohol and Drug Abuse Patient Records regulations: The Federal rules restrict any use of the information to criminally investigate or prosecute any alcohol or drug abuse patient.[facility] the event this information is protected by the Federal Confidentiality of Alcohol and Drug Abuse Patient Records regulations: The Federal rules restrict any use of the information to criminally investigate or prosecute any alcohol or drug abuse patient.[facility] the event this information is protected by the Federal Confidentiality of Alcohol and Drug Abuse Patient Records regulations: The Federal rules restrict any use of the information to criminally investigate or prosecute any alcohol or drug abuse patient.[facility]In the event this information is protected by the Federal Confidentiality of Alcohol and Drug Abuse Patient Records regulations: The Federal rules restrict any use of the information to criminally investigate or prosecute any alcohol or drug abuse patient.[facility] EastIn the event this information is protected by the Federal Confidentiality of Alcohol and Drug Abuse Patient Records regulations: The Federal rules restrict any use of the information to criminally investigate or prosecute any alcohol or drug abuse patient.[facility] EastIn the event this information is protected by the Federal Confidentiality of Alcohol and Drug Abuse Patient Records regulations: The Federal rules restrict any use of the information to criminally investigate or prosecute any alcohol or drug abuse patient.[facility] EastIn the event this information is protected by the Federal Confidentiality of Alcohol and Drug Abuse Patient Records regulations: The Federal rules restrict any use of the information to criminally investigate or prosecute any alcohol or drug abuse patient.[facility] EastIn the event this information is protected by the Federal Confidentiality of Alcohol and Drug Abuse Patient Records regulations: The Federal rules restrict any use of the information to criminally investigate or prosecute any alcohol or drug abuse patient.[facility] EastIn the event this information is protected by the Federal Confidentiality of Alcohol and Drug Abuse Patient Records regulations: The Federal rules restrict any use of the information to criminally investigate or prosecute any alcohol or drug abuse patient.[facility] EastIn the event this information is protected by the Federal Confidentiality of Alcohol and Drug Abuse Patient Records regulations: The Federal rules restrict any use of the information to criminally investigate or prosecute any alcohol or drug abuse patient.[facility] EastIn the event this information is protected by the Federal Confidentiality of Alcohol and Drug Abuse Patient Records regulations: The Federal rules restrict any use of the information to criminally investigate or prosecute any alcohol or drug abuse patient.[facility] EastIn the event this information is protected by the Federal Confidentiality of Alcohol and Drug Abuse Patient Records regulations: The Federal rules restrict any use of the information to criminally investigate or prosecute any alcohol or drug abuse patient.[facility] EastIn the event this information is protected by the Federal Confidentiality of Alcohol and Drug Abuse Patient Records regulations: The Federal rules restrict any use of the information to criminally investigate or prosecute any alcohol or drug abuse patient.[facility] EastIn the event this information is protected by the Federal Confidentiality of Alcohol and Drug Abuse Patient Records regulations: The Federal rules restrict any use of the information to criminally investigate or prosecute any alcohol or drug abuse patient.[facility] EastIn the event this information is protected by the Federal Confidentiality of Alcohol and Drug Abuse Patient Records regulations: The Federal rules restrict any use of the information to criminally investigate or prosecute any alcohol or drug abuse patient.[facility] EastIn the event this information is protected by the Federal Confidentiality of Alcohol and Drug Abuse Patient Records regulations: The Federal rules restrict any use of the information to criminally investigate or prosecute any alcohol or drug abuse patient.[facility] EastIn the event this information is protected by the Federal Confidentiality of Alcohol and Drug Abuse Patient Records regulations: The Federal rules restrict any use of the information to criminally investigate or prosecute any alcohol or drug abuse patient.[facility] EastIn the event this information is protected by the Federal Confidentiality of Alcohol and Drug Abuse Patient Records regulations: The Federal rules restrict any use of the information to criminally investigate or prosecute any alcohol or drug abuse patient.[facility] EastIn the event this information is protected by the Federal Confidentiality of Alcohol and Drug Abuse Patient Records regulations: The Federal rules restrict any use of the information to criminally investigate or prosecute any alcohol or drug abuse patient.[facility] EastIn the event this information is protected by the Federal Confidentiality of Alcohol and Drug Abuse Patient Records regulations: The Federal rules restrict any use of the information to criminally investigate or prosecute any alcohol or drug abuse patient.[facility] EastIn the event this information is protected by the Federal Confidentiality of Alcohol and Drug Abuse Patient Records regulations: The Federal rules restrict any use of the information to criminally investigate or prosecute any alcohol or drug abuse patient.[facility] EastIn the event this information is protected by the Federal Confidentiality of Alcohol and Drug Abuse Patient Records regulations: The Federal rules restrict any use of the information to criminally investigate or prosecute any alcohol or drug abuse patient.[facility] EastIn the event this information is protected by the Federal Confidentiality of Alcohol and Drug Abuse Patient Records regulations: The Federal rules restrict any use of the information to criminally investigate or prosecute any alcohol or drug abuse patient.[facility] EastIn the event this information is protected by the Federal Confidentiality of Alcohol and Drug Abuse Patient Records regulations: The Federal rules restrict any use of the information to criminally investigate or prosecute any alcohol or drug abuse patient.[facility] EastIn the event this information is protected by the Federal Confidentiality of Alcohol and Drug Abuse Patient Records regulations: The Federal rules restrict any use of the information to criminally investigate or prosecute any alcohol or drug abuse patient.[facility] EastIn the event this information is protected by the Federal Confidentiality of Alcohol and Drug Abuse Patient Records regulations: The Federal rules restrict any use of the information to criminally investigate or prosecute any alcohol or drug abuse patient.[facility] EastIn the event this information is protected by the Federal Confidentiality of Alcohol and Drug Abuse Patient Records regulations: The Federal rules restrict any use of the information to criminally investigate or prosecute any alcohol or drug abuse patient.[facility] EastIn the event this information is protected by the Federal Confidentiality of Alcohol and Drug Abuse Patient Records regulations: The Federal rules restrict any use of the information to criminally investigate or prosecute any alcohol or drug abuse patient.[facility] EastIn the event this information is protected by the Federal Confidentiality of Alcohol and Drug Abuse Patient Records regulations: The Federal rules restrict any use of the information to criminally investigate or prosecute any alcohol or drug abuse patient.[facility]In the event this information is protected by the Federal Confidentiality of Alcohol and Drug Abuse Patient Records regulations: The Federal rules restrict any use of the information to criminally investigate or prosecute any alcohol or drug abuse patient.[facility] EastIn the event this information is protected by the Federal Confidentiality of Alcohol and Drug Abuse Patient Records regulations: The Federal rules restrict any use of the information to criminally investigate or prosecute any alcohol or drug abuse patient.[facility] EastIn the event this information is protected by the Federal Confidentiality of Alcohol and Drug Abuse Patient Records regulations: The Federal rules restrict any use of the information to criminally investigate or prosecute any alcohol or drug abuse patient.[facility] EastIn the event this information is protected by the Federal Confidentiality of Alcohol and Drug Abuse Patient Records regulations: The Federal rules restrict any use of the information to criminally investigate or prosecute any alcohol or drug abuse patient.[facility] EastIn the event this information is protected by the Federal Confidentiality of Alcohol and Drug Abuse Patient Records regulations: The Federal rules restrict any use of the information to criminally investigate or prosecute any alcohol or drug abuse patient.[facility] EastIn the event this information is protected by the Federal Confidentiality of Alcohol and Drug Abuse Patient Records regulations: The Federal rules restrict any use of the information to criminally investigate or prosecute any alcohol or drug abuse patient.[facility]In the event this information is protected by the Federal Confidentiality of Alcohol and Drug Abuse Patient Records regulations: The Federal rules restrict any use of the information to criminally investigate or prosecute any alcohol or drug abuse patient.[facility] EastIn the event this information is protected by the Federal Confidentiality of Alcohol and Drug Abuse Patient Records regulations: The Federal rules restrict any use of the information to criminally investigate or prosecute any alcohol or drug abuse patient.[facility] EastIn the event this information is protected by the Federal Confidentiality of Alcohol and Drug Abuse Patient Records regulations: The Federal rules restrict any use of the information to criminally investigate or prosecute any alcohol or drug abuse patient.[facility] EastIn the event this information is protected by the Federal Confidentiality of Alcohol and Drug Abuse Patient Records regulations: The Federal rules restrict any use of the information to criminally investigate or prosecute any alcohol or drug abuse patient.[facility]In the event this information is protected by the Federal Confidentiality of Alcohol and Drug Abuse Patient Records regulations: The Federal rules restrict any use of the information to criminally investigate or prosecute any alcohol or drug abuse patient.[facility] EastIn the event this information is protected by the Federal Confidentiality of Alcohol and Drug Abuse Patient Records regulations: The Federal rules restrict any use of the information to criminally investigate or prosecute any alcohol or drug abuse patient.[facility] EastIn the event this information is protected by the Federal Confidentiality of Alcohol and Drug Abuse Patient Records regulations: The Federal rules restrict any use of the information to criminally investigate or prosecute any alcohol or drug abuse patient.[facility] EastIn the event this information is protected by the Federal Confidentiality of Alcohol and Drug Abuse Patient Records regulations: The Federal rules restrict any use of the information to criminally investigate or prosecute any alcohol or drug abuse patient.[facility] EastIn the event this information is protected by the Federal Confidentiality of Alcohol and Drug Abuse Patient Records regulations: The Federal rules restrict any use of the information to criminally investigate or prosecute any alcohol or drug abuse patient.[facility] EastIn the event this information is protected by the Federal Confidentiality of Alcohol and Drug Abuse Patient Records regulations: The Federal rules restrict any use of the information to criminally investigate or prosecute any alcohol or drug abuse patient.[facility] EastIn the event this information is protected by the Federal Confidentiality of Alcohol and Drug Abuse Patient Records regulations: The Federal rules restrict any use of the information to criminally investigate or prosecute any alcohol or drug abuse patient.[facility]In the event this information is protected by the Federal Confidentiality of Alcohol and Drug Abuse Patient Records regulations: The Federal rules restrict any use of the information to criminally investigate or prosecute any alcohol or drug abuse patient.[facility] EastIn the event this information is protected by the Federal Confidentiality of Alcohol and Drug Abuse Patient Records regulations: The Federal rules restrict any use of the information to criminally investigate or prosecute any alcohol or drug abuse patient.[facility]In the event this information is protected by the Federal Confidentiality of Alcohol and Drug Abuse Patient Records regulations: The Federal rules restrict any use of the information to criminally investigate or prosecute any alcohol or drug abuse patient.[facility]In the event this information is protected by the Federal Confidentiality of Alcohol and Drug Abuse Patient Records regulations: The Federal rules restrict any use of the information to criminally investigate or prosecute any alcohol or drug abuse patient.[facility]In the event this information is protected by the Federal Confidentiality of Alcohol and Drug Abuse Patient Records regulations: The Federal rules restrict any use of the information to criminally investigate or prosecute any alcohol or drug abuse patient.[facility]In the event this information is protected by the Federal Confidentiality of Alcohol and Drug Abuse Patient Records regulations: The Federal rules restrict any use of the information to criminally investigate or prosecute any alcohol or drug abuse patient.[facility]In the event this information is protected by the Federal Confidentiality of Alcohol and Drug Abuse Patient Records regulations: The Federal rules restrict any use of the information to criminally investigate or prosecute any alcohol or drug abuse patient.[facility] EastIn the event this information is protected by the Federal Confidentiality of Alcohol and Drug Abuse Patient Records regulations: The Federal rules restrict any use of the information to criminally investigate or prosecute any alcohol or drug abuse patient.[facility] EastIn the event this information is protected by the Federal Confidentiality of Alcohol and Drug Abuse Patient Records regulations: The Federal rules restrict any use of the information to criminally investigate or prosecute any alcohol or drug abuse patient.[facility]In the event this information is protected by the Federal Confidentiality of Alcohol and Drug Abuse Patient Records regulations: The Federal rules restrict any use of the information to criminally investigate or prosecute any alcohol or drug abuse patient.[facility]In the event this information is protected by the Federal Confidentiality of Alcohol and Drug Abuse Patient Records regulations: The Federal rules restrict any use of the information to criminally investigate or prosecute any alcohol or drug abuse patient.[facility]In the event this information is protected by the Federal Confidentiality of Alcohol and Drug Abuse Patient Records regulations: The Federal rules restrict any use of the information to criminally investigate or prosecute any alcohol or drug abuse patient.[facility]In the event this information is protected by the Federal Confidentiality of Alcohol and Drug Abuse Patient Records regulations: The Federal rules restrict any use of the information to criminally investigate or prosecute any alcohol or drug abuse patient.[facility]In the event this information is protected by the Federal Confidentiality of Alcohol and Drug Abuse Patient Records regulations: The Federal rules restrict any use of the information to criminally investigate or prosecute any alcohol or drug abuse patient.[facility]In the event this information is protected by the Federal Confidentiality of Alcohol and Drug Abuse Patient Records regulations: The Federal rules restrict any use of the information to criminally investigate or prosecute any alcohol or drug abuse patient.[facility]In the event this information is protected by the Federal Confidentiality of Alcohol and Drug Abuse Patient Records regulations: The Federal rules restrict any use of the information to criminally investigate or prosecute any alcohol or drug abuse patient.[facility]In the event this information is protected by the Federal Confidentiality of Alcohol and Drug Abuse Patient Records regulations: The Federal rules restrict any use of the information to criminally investigate or prosecute any alcohol or drug abuse patient.[facility]In the event this information is protected by the Federal Confidentiality of Alcohol and Drug Abuse Patient Records regulations: The Federal rules restrict any use of the information to criminally investigate or prosecute any alcohol or drug abuse patient.[facility]In the event this information is protected by the Federal Confidentiality of Alcohol and Drug Abuse Patient Records regulations: The Federal rules restrict any use of the information to criminally investigate or prosecute any alcohol or drug abuse patient.[facility]In the event this information is protected by the Federal Confidentiality of Alcohol and Drug Abuse Patient Records regulations: The Federal rules restrict any use of the information to criminally investigate or prosecute any alcohol or drug abuse patient.[facility]In the event this information is protected by the Federal Confidentiality of Alcohol and Drug Abuse Patient Records regulations: The Federal rules restrict any use of the information to criminally investigate or prosecute any alcohol or drug abuse patient.[facility]In the event this information is protected by the Federal Confidentiality of Alcohol and Drug Abuse Patient Records regulations: The Federal rules restrict any use of the information to criminally investigate or prosecute any alcohol or drug abuse patient.[facility]In the event this information is protected by the Federal Confidentiality of Alcohol and Drug Abuse Patient Records regulations: The Federal rules restrict any use of the information to criminally investigate or prosecute any alcohol or drug abuse patient.[facility]In the event this information is protected by the Federal Confidentiality of Alcohol and Drug Abuse Patient Records regulations: The Federal rules restrict any use of the information to criminally investigate or prosecute any alcohol or drug abuse patient.[facility]In the event this information is protected by the Federal Confidentiality of Alcohol and Drug Abuse Patient Records regulations: The Federal rules restrict any use of the information to criminally investigate or prosecute any alcohol or drug abuse patient.[facility]In the event this information is protected by the Federal Confidentiality of Alcohol and Drug Abuse Patient Records regulations: The Federal rules restrict any use of the information to criminally investigate or prosecute any alcohol or drug abuse patient.[facility] EastIn the event this information is protected by the Federal Confidentiality of Alcohol and Drug Abuse Patient Records regulations: The Federal rules restrict any use of the information to criminally investigate or prosecute any alcohol or drug abuse patient.[facility] Reason for Visit (unrecogniz ed section and content) Reason Comments Consult Specialty Diagnoses / Procedures Referred By Contac t Referred To Contact General Surgery Diagnoses Diverticulitis Bloody stools Procedures CONSULT TO GENERAL SURGERY OFFICE/OUTPATIENT NEW HIGH MDM 60 MINUTES Brian Ahmadi APRN.[employer] [address] [place] [address] Referral ID Status Reason Start Date Expiration Date V isits Requested Visits Authorized [id number] Closed PCP Requested Referral 04/30/2024 04/30/2025 1 [...] Contact Diagnoses Stroke Level A Head Bleed/Stroke [facility] [address] [place] [address] [facility] [address] [place] [address] Referral ID Status Reason Start Date Expiration Date Visits Re quested Visits Authorized [id number] 1 1 Reason Comments Patient Update FYI-No [...] MINIMUM 5 VIEWS Gerardo Lopez PA-C [address] [id number] X[facility] Imaging [place] [id number] Referral ID Status Reason Start Date Expiration Date V isits Requested Visits Authorized Closed Auto-Generate d Referral 03/15/2021 04/14/2022 1 1 Reason Comments ER F/U [facility] ER diverticuliti s 04/23/2024 Reason Onset [...] Comments Follow Up 3 month Reason Comments [facility] ER f/u Reason Comments Hospital Follow [...] Care Teams (unrecognized sec tion and content) Datastage Architect Relationship Specialty Start Date End Date Mathew Cobian MD [address] [place] [address] PCP - General 09/22/08 Datastage Architect Relationship Specialty Start Date End Date Mathew Cobian MD [address] [facility] [place] [address] PCP - General 09/22/08 Datastage Architect Relationship Specialty Start Date End Date Mathew Cobian MD [address] [facility] [place] [address] PCP - General 09/22/08 Datastage Architect Relationship Specialty Start Date End Date Mathew Cobian MD [address] [facility] [place] [address] PCP - General 09/22/08 Datastage Architect Relationship Specialty Start Date End Date Mathew Cobian MD [address] [facility] [place] [address] PCP - General 09/22/08 Datastage Architect Relationship Specialty Start Date End Date Mathew Cobian MD [address] [facility] [place] [address] PCP - General 09/22/08 Datastage Architect Relationship Specialty Start Date End Date Mathew Cobian MD [address] [facility] [place] [address] PCP - General 09/22/08 Datastage Architect Relationship Specialty Start Date End Date Mathew Cobian MD [address] [facility] [place] [address] PCP - General 09/22/08 Datastage Architect Relationship Specialty Start Date End Date Mathew Cobian MD [address] [facility] [place] [address] PCP - General 09/22/08 Datastage Architect Relationship Specialty Start Date End Date Mathew Cobian MD [address] [facility] [place] [address] PCP - General 09/22/08 Datastage Architect Relationship Specialty Start Date End Date Mathew Cobian MD [address] [place] [address] PCP - General 09/22/08 Datastage Architect Relationship Specialty Start Date End Date Mathew Cobian MD [address] [facility] [address] PCP - General 09/22/08 Datastage Architect Relationship Specialty Start Date End Date Mathew Cobian MD [address] [facility] [address] PCP - General 09/22/08 Datastage Architect Relationship Specialty Start Date End Date Mathew Cobian MD [address] [place] [address] PCP - General 09/22/08 Datastage Architect Relationship Specialty Start Date End Date Mathew Cobian MD [address] [place] [address] PCP - General 09/22/08 Team Status: Active Member Role Status Dates Dr. Mathew Cobian MD Family Provider Active Dr. Mathew Cobian MD Primary Care Provider Active Team Status: Inactive Member Role Status Dates Dr. Mathew Cobian MD Primary Care Pr ovider, Attending Provider, Referring Provider Active Datastage Architect Relationship Specialty Start Date End Date Mathew Cobian MD [address] [place] [address] PCP - General 09/22/08 Datastage Architect Relationship Specialty Start Date End Date Mathew Cobian MD [address] [place] [address] PCP - General 09/22/08 Datastage Architect Relationship Specialty Start Date End Date Mathew Cobian MD [address] [place] [address] PCP - General 09/22/08 Datastage Architect Relationship Specialty Start Date End Date Mathew Cobian MD [address] [place] [address] PCP - General 09/22/08 Datastage Architect Relationship Specialty Start Date End Date Mathew Cobian MD [address] [place] [address] PCP - General 09/22/08 Datastage Architect Relationship Specialty Start Date End Date Mathew Cobian MD [address] [place] [address] PCP - General 09/22/08 Datastage Architect Relationship Specialty Start Date End Date Mathew Cobian MD [address] [place] [address] PCP - General 09/22/08 Datastage Architect Relationship Specialty Start Date End Date Mathew Cobian MD [address] [place] [address] PCP - General 09/22/08 Datastage Architect Relationship Specialty Start Date End Date Mathew Cobian MD [address] [place] [address] PCP - General 09/22/08 Datastage Architect Relationship Specialty Start Date End Date Mathew Cobian MD [address] [place] [address] PCP - General Family Medicine 09/26/23 Datastage Architect Relationship Specialty Start Date End Date Mathew Cobian MD [address] [facility] [place] [address] PCP - General 09/22/08 Datastage Architect Relationship Specialty Start Date End Date Mathew Cobian MD [address] [facility] [place] [address] PCP - General 09/22/08 Datastage Architect Relationship Specialty Start Date End Date Mathew Cobian MD [address] [place] [address] PCP - General 09/22/08 Datastage Architect Relationship Specialty Start Date End Date Mathew Cobian MD [address] [place] [address] PCP - General 09/22/08 Datastage Architect Relationship Specialty Start Date End Date Mathew Cobian MD [address] [place] [address] PCP - General 09/22/08 Datastage Architect Relationship Specialty Start Date End Date Mathew Cobian MD [address] [place] [address] PCP - General 09/22/08 Datastage Architect Relationship Specialty Start Date End Date Mathew Cobian MD [address] [facility] [place] [address] PCP - General 09/22/08 Datastage Architect Relationship Specialty Start Date End Date Mathew Cobian MD [address] [facility] [place] [address] PCP - General 09/22/08 Datastage Architect Relationship Specialty Start Date End Date Mathew Cobian MD [address] [facility] [place] [address] PCP - General 09/22/08 Datastage Architect Relationship Specialty Start Date End Date Mathew Cobian MD [address] [facility] [place] [address] PCP - General 09/22/08 Datastage Architect Relationship Specialty Start Date End Date Mathew Cobian MD [address] [facility] [place] [address] PCP - General 09/22/08 Datastage Architect Relationship Specialty Start Date End Date Mathew Cobian MD [address] [place] [address] PCP - General 09/22/08 Datastage Architect Relationship Specialty Start Date End Date Mathew Cobian MD [address] [place] [address] PCP - General 09/22/08 Datastage Architect Relationship Specialty Start Date End Date Mathew Cobian MD [address] [place] [address] PCP - General 09/22/08 Datastage Architect Relationship Specialty Start Date End Date Mathew Cobian MD [address] [facility] [place] [address] PCP - General 09/22/08 Datastage Architect Relationship Specialty Start Date End Date Mathew Cobian MD [address] [facility] [place] [address] PCP - General 09/22/08 Sp San RN [address] [place] [id number] Primary Care Anode Worker 05/14/24 05/14/24 Datastage Architect Relationship Specialty Start Date End Date Mathew Cobian MD [address] [place] [address] PCP - General 09/22/08 Datastage Architect Relationship Specialty Start Date End Date Mathew Cobian MD [address] [place] [address] PCP - General 09/22/08 Gypsy Syed APRN.WRONG ADDRESS CLERK [address] [place] [address] [facility] 06/30/24 Brian Ahmadi APRN.WRONG ADDRESS CLERK [address] [place] [address] [facility] 07/09/24 Datastage Architect Relationship Specialty Start Date End Date Mathew Cobian MD [address] [place] [address] PCP - General 09/22/08 Gypsy Syed APRN.WRONG ADDRESS CLERK [address] [place] [address] [facility] 06/30/24 Brian Ahmadi APRN.WRONG ADDRESS CLERK [address] [place] [address] [facility] 07/09/24 Datastage Architect Relationship Specialty Start Date End Date Mathew Cobian MD [address] [place] [address] PCP - General 09/22/08 Gypsy Syed APRN.WRONG ADDRESS CLERK [address] [place] [address] [facility] Brian Ahmadi APRN.WRONG ADDRESS CLERK [address] [place] [address] [facility] 07/09/24 Datastage Architect Relationship Specialty Start Date End Date Mathew Cobian MD [address] [place] [address] PCP - General 09/22/08 Gypsy Syed APRN.WRONG ADDRESS CLERK [address] [place] [address] [facility] 06/[facility]/24 Brian Ahmadi FISHING ROD MARKER.WRONG ADDRESS CLERK [address] [place] [address] [facility]ly [facility] 07/09/24 Datastage Architect Relationship Specialty Start Date End Date Mathew Cobian MD [address] [place] [address] PCP - General 09/22/08 Gypsy Syed APRN.WRONG ADDRESS CLERK [address] [place] [address] [facility] Medicine 06/30/24 Brian Ahmadi APRN.WRONG ADDRESS CLERK [address] [place] [address] Formerly [facility] 07/09/24 Datastage Architect Relationship Specialty Start Date End Date Mathew Cobian MD [address] [place] [address] PCP - General 09/22/08 Gypsy Syed APRN.WRONG ADDRESS CLERK [address] [place] [address] [facility] 06/30/24 Brian Ahmadi APRN.WRONG ADDRESS CLERK [address] [facility] [place] [address] [facility]i [facility] Medicine 07/09/24 Datastage Architect Relationship Specialty Start Date End Date Mathew Cobian MD [address] [facility] [place] [address] PCP - General 09/22/08 Gypsy Syed APRN.WRONG ADDRESS CLERK [address] [facility] [place] [address] [facility] 06/30/24 Brian Ahmadi APRN.WRONG ADDRESS CLERK [address] [place] [address] Hand Ii Cutter [facility] Medicine 07/09/24 Datastage Architect Relationship Specialty Start Date End Date Mathew Cobian MD [address] [facility] [place] [address] PCP - General 09/22/08 Gypsy Syed APRN.WRONG ADDRESS CLERK [address] [facility] [place] [address] [facility] 06/30/24 Brian Ahmadi APRN.WRONG ADDRESS CLERK [address] [place] [address] [facility] 07/09/24 Datastage Architect Relationship Specialty Start Date End Date Mathew Cobian MD [address] [place] [address] PCP - General 09/22/08 Gypsy Syed APRN.WRONG ADDRESS CLERK [address] [place] [address] [facility] 06/30/24 Brian Ahmadi APRN.WRONG ADDRESS CLERK [address] [place] [address] [facility] 07/[facility]/24 Datastage Architect Relationship Specialty Start Date End Date Mathew Cobian MD [address] [place] [address] PCP - General 09/22/08 Gypsy Syed APRN.WRONG ADDRESS CLERK [address] [place] [address] [facility] 06/30/24 Brian Ahmadi APRN.WRONG ADDRESS CLERK [address] [place] [address] [facility] 07/09/24 Datastage Architect Relationship Specialty Start Date End Date Mathew Cobian MD [address] [place] [address] PCP - General 09/22/08 Gypsy Syed APRN.WRONG ADDRESS CLERK [address] [place] [address] Formerly [facility] 06/30/24 Brian Ahmadi APRN.WRONG ADDRESS CLERK [address] [place], [place] [address] Former[facility] 07/09/24 Datastage Architect Relationship Specialty Start Date End Date Mathew Cobian MD [address] [place], [place] [address] PCP - General 09/22/08 Gypsy Syed APRN.WRONG ADDRESS CLERK [address] [place] [address] Formerly [facility] 06/30/24 Brian Ahmadi APRN.WRONG ADDRESS CLERK [address] [place] [address] Formerly [facility] 07/09/24 Team Status: Active Member [...] November 05, 2024 End: November 05, 2024 Datastage Architect Relationship Specialty Start Date End Date Mathew Cobian MD [address] [place] [address] PCP - General 09/22/08 Brian Ahmadi APRN.WRONG ADDRESS CLERK [address] [facility] [place] [address] [facility] 07/09/24 Datastage Architect Relationship Specialty Start Date End Date Mathew Cobian MD [address] [facility] [place] [address] PCP - General 09/22/08 Brian Ahmadi APRN.WRONG ADDRESS CLERK [address] [facility] [address] [facility] 07/09/24 Datastage Architect Relationship Specialty Start Date End Date Mathew Cobian MD [address] [place] [address] PCP - General 09/22/08 Brian Ahmadi FISHING ROD MARKER.WRONG ADDRESS CLERK [address] [place] [address] [facility] 07/09/24 Datastage Architect Relationship Specialty Start Date End Date Mathew Cobian MD [address] [place] [address] PCP - General 09/22/08 Brian Ahmadi APRN.WRONG ADDRESS CLERK [address] [place] [address] [facility] 07/09/24 Datastage Architect Relationship Specialty Start Date End Date Mathew Cobian MD [address] [place] [address] PCP - General 09/22/08 Brian Ahmadi FISHING ROD MARKER.WRONG ADDRESS CLERK [address] [place], [place] [address] [facility] 07/09/24 Datastage Architect Relationship Specialty Start Date End Date Mathew Cobian MD [address] [place], [place] [address] PCP - General 09/22/08 Brian Ahmadi APRN.WRONG ADDRESS CLERK [address] [place], [place] [address] [facility] 07/09/24 Datastage Architect Relationship Specialty Start Date End Date Mathew Cobian MD [address] [place], [place] [address] PCP - General 09/22/08 Brian Ahmadi APRN.WRONG ADDRESS CLERK [address] [place], [place] [address] [facility] 07/09/24 Goals (unrecognized section and content) Goals [...] BE BASED ON THE PRIMARY CLINICAL RECORDS. [facility] [employer] [facility]. provides no warranty or guarantee of the accuracy or completeness of information in this document.
--- NOTE | 2025-01-21 00:44 | CT_ITS ---
PROCEDURE: BRAIN/HEAD WITHOUT CONTRAST 01/21/2025 REASON FOR EXAM: DIZZINESS TECHNIQUE: BRAIN/HEAD WITHOUT CONTRAST Coronal and Sagittal reconstruction series were provided. One or more dose reduction techniques were used (e.g., Automated exposure control, adjustment of the mA and/or kV according to patient size, use of iterative reconstruction technique. RADIATION DOSE SUMMARY: CTDlvol: 45 mGy DLP: 847 mGycm COMPARISON: 09/26/2023 FINDINGS: There is a stable hyperdensity, in the right frontal white matter, series 2 image 24, measuring up to 1.2 cm, most likely a vascular anomaly. No acute abnormal brain densities. Mild white matter change. Mild atrophy. No acute abnormal brain densities. No intracranial hemorrhage. No hydrocephalus or midline shift. Bilateral proptosis. No acute scalp or skull pathology. Clear sinuses, mastoid air cells, middle ear cavities. CT/Brain/Head without Contrast IMPRESSION: No acute intracranial findings. Reading Location: [place] [address]
--- NOTE | 2025-01-21 00:44 | CT_ITS ---
PROCEDURE: BRAIN/HEAD WITHOUT CONTRAST 01/21/2025 REASON FOR EXAM: DIZZINESS TECHNIQUE: BRAIN/HEAD WITHOUT CONTRAST Coronal and Sagittal reconstruction series were provided. One or more dose reduction techniques were used (e.g., Automated exposure control, adjustment of the mA and/or kV according to patient size, use of iterative reconstruction technique. RADIATION DOSE SUMMARY: CTDlvol: 45 mGy DLP: 847 mGycm COMPARISON: 09/26/2023 FINDINGS: There is a stable hyperdensity, in the right frontal white matter, series 2 image 24, measuring up to 1.2 cm, most likely a vascular anomaly. No acute abnormal brain densities. Mild white matter change. Mild atrophy. No acute abnormal brain densities. No intracranial hemorrhage. No hydrocephalus or midline shift. Bilateral proptosis. No acute scalp or skull pathology. Clear sinuses, mastoid air cells, middle ear cavities. CT/Brain/Head without Contrast IMPRESSION: No acute intracranial findings. Reading Location: [place] [address]
[2025-01-21 00:55] VITALS: BP 122/73; PULSE 55; RESP 16; O2SAT 96
[2025-01-21 00:59] LABS: Hematocrit 39.7 % (40-54); Hemoglobin 13.2 g/dL (13.0-16.5); Immature Granulocytes Count 0.050 X10^3/uL (0.0-0.0); Mean Corp Hgb Conc 33.2 g/dL (32-36); Mean Corpuscular Volume 90.4 fL (80-94); Mean Platelet Vol. 12.0 fl (6.2-12.0); NRBC Flagged by Analyzer 0 % (0-5); Platelet Count 224 K/mm3 (150-450); RBC Distribution Width CV 13.0 % (11.6-14.6); RBC Distribution Width SD 42.8 fl (35.1-43.9); Red Blood Count 4.39 M/mm3 (4.6-6.2); White Blood Count 9.0 K/mm3 (4.4-11.0)
[2025-01-21 01:11] VITALS: BP 113/77; BP 121/72; BP 125/81; PULSE 55; PULSE 56; PULSE 68
[2025-01-21] MEDS: 0.9% Normal Saline (1000mL) 1,000 ML 999 ML IV (01:36)
[2025-01-21 01:40] LABS: Anion Gap 11 (5-15); BUN 10 mg/dL (4-19); BUN/Creat Ratio 10.1 RATIO (10-20); Calcium,Total 8.7 mg/dL (7.6-11.0); Carbon Dioxide 23.0 mmol/L (21.0-32.0); Chloride 102 mmol/L (98-108); Estimated Creatinine Clearance 90.66 ml/min (50-250); Glucose 90 mg/dL (70-99); Magnesium 1.8 mg/dL (1.5-2.2); Potassium 3.5 mmol/L (3.3-5.1)
[2025-01-21 02:00] VITALS: BP 120/74; PULSE 57; RESP 22; O2SAT 96
--- NOTE | 2025-01-21 02:32 | EX.ED.DYSGE1 ---
HPI History of Present Illness Chief Complaint: Dizziness Informant: patient and spouse/S.O. Narrative Narrative: Patient is 59-year-old male with past medical history of cerebral palsy and hypothyroidism. He states that today/this evening he has been having bouts of dizziness that he describes as a combination of motion and lightheadedness. He states the symptoms do seem to worsen with changes in position. He denies any recent bouts of nausea vomiting or diarrhea or head injury. However based on his symptoms there was concern this could be neurologic in nature and therefore he comes in for evaluation [facility] Medical History Alcohol abuse Anxiety History of trigger finger Alcohol abuse Chronic pain Smoker CPAP (continuous positive airway pressure) dependence Sleep apnea Cerebral palsy Home Medications ?Medication ?Instructions ?Recorded ?Last Taken ?Type omeprazole 20 mg capsule,delayed 20 mg PO DAILY GERD 02/05/19 04/23/24 History release multivitamin 1 tab PO DAILY supplement 12/04/20 04/22/24 History acetaminophen 500 mg tablet 1,000 mg (2 x 500 mg) PO Q6H PRN 12/23/20 Unknown Rx PRN Pain Score 1-5 #0 tabs citalopram 40 mg tablet 40 mg PO DAILY #0 tabs 12/23/20 04/23/24 Rx lorazepam 1 mg tablet 1 mg PO Q8H PRN PRN Anxiety 02/27/22 04/22/24 History vitamin B complex 1 tab PO DAILY 02/27/22 04/22/24 History clindamycin HCl 300 mg capsule 300 mg PO Q6H #40 CAPSULES 11/05/24 Unknown Rx (Cleocin HCl) levothyroxine 150 mcg tablet 150 mcg PO DAILY 11/05/24 Unknown History diazepam 5 mg tablet (Valium) 5 mg PO TID PRN Vertigo/dizziness 01/21/25 Unknown Rx 5 days #15 tabs Allergy/AdvReac Type Severity Reaction Status Date / Time No Known Allergies Allergy Verified 01/20/25 22:55 Family History Other Cancer Diabetes Surgical History History of tonsillectomy H/O hand surgery Social History household members: other details: Roommate who does not help him cook or clean. Smoking Status: Current every day smoker tobacco type: cigarettes and e-cigarettes alcohol intake: current alcohol intake frequency: 3 or more drinks per day Alcohol type: hard liquor ROS ROS ED Constitutional Constitutional ED: Denies chills or fever(s) Eyes Eyes: Denies blurry vision or change in vision ENT ENT ED: Denies sore throat Cardiovascular Cardiovascular: Denies chest pain, palpitations or racing heartbeat Respiratory/Chest Respiratory/Chest: Denies cough or dyspnea Gastrointestinal Gastrointestinal: Reports nausea; Denies abdominal pain, diarrhea or vomiting Genitourinary Genitourinary ED: Denies dysuria Musculoskeletal Musculoskeletal: Reports back pain and other Details: Patient states that back pain is chronic in nature ; Denies myalgias Integumentary Denies rash Neurologic Neurologic: Reports other Details: Positive dizziness ; Denies headache(s) Hematologic/Lymphatic Hematologic/Lymphatic: Denies easy bleeding or easy bruising EXAM Physical Exam Const Vital Signs: 01/20/25 22:56 01/21/25 00:55 01/21/25 01:11 Temperature 98.7 F Temperature Source Oral Pulse Rate 70 55 L Pulse Rate [Lying] 55 L Pulse Rate [Sitting (for 1 minute prior to obtaining)] 56 L Pulse Rate [Standing (for 1 minute prior to obtaining)] 68 Respiratory Rate 16 16 Blood Pressure 128/75 H 122/73 H Blood Pressure [Lying] 113/77 Blood Pressure [Sitting (for 1 minute prior to obtaining)] 121/72 H Blood Pressure [Standing (for 1 minute prior to obtaining)] 125/81 H Blood Pressure Mean 92 89 Blood Pressure Mean [Lying] 89 Blood Pressure Mean [Sitting (for 1 minute prior to obtaining)] 88 Blood Pressure Mean [Standing (for 1 minute prior to obtaining)] 95 Pulse Ox 96 96 Oxygen Delivery Method Room Air Room Air 01/21/25 02:00 01/21/25 02:33 Temperature 98.1 F Temperature Source Pulse Rate 57 L 59 L Pulse Rate [Lying] Pulse Rate [Sitting (for 1 minute prior to obtaining)] Pulse Rate [Standing (for 1 minute prior to obtaining)] Respiratory Rate 22 H 19 H Blood Pressure 120/74 120/80 Blood Pressure [Lying] Blood Pressure [Sitting (for 1 minute prior to obtaining)] Blood Pressure [Standing (for 1 minute prior to obtaining)] Blood Pressure Mean 89 93 Blood Pressure Mean [Lying] Blood Pressure Mean [Sitting (for 1 minute prior to obtaining)] Blood Pressure Mean [Standing (for 1 minute prior to obtaining)] Pulse Ox 96 96 Oxygen Delivery Method Positive well nourished and well developed General Appearance ED: well developed; Negative for pallor HEENT HEENT Narrative: Normocephalic atraumatic Bilateral TMs are slightly retracted but show no secondary findings to suggest infection Eyes PERRL and EOMs intact bilaterally General Eye ED: Negative for scleral icterus Neck supple Neck Narrative: No nuchal rigidity or meningeal signs Resp normal respiratory effort and clear to auscultation bilaterally Cardio regular rate and regular rhythm Rate: other Other Details: Radial and carotid pulses are equal and symmetric GI normal to inspection, nondistended, normoactive bowel sounds, non-tender, non-distended and no masses GI Narrative: No voluntary guarding or rigidity or pulsatile mass Auscultation: normoactive bowel sounds Palpation: soft Extremity normal to inspection Neuro oriented x3, CN's II-XII intact bilaterally and no sensory deficits noted Neuro Narrative: GCS of 15 Cranial nerves II through XII are grossly intact without focal neurologic deficit No pronator drift no dysmetria no truncal ataxia NIH stroke scale score is 0 There is mild horizontal nystagmus noted Positive [place] exam on left Sensorium / Orientation: alert Psych mental status grossly normal Skin no rashes or lesions noted General Skin Exam: Negative for jaundice or pallor MDM MDM MDM Narrative Medical decision making narrative: Patient presented to the ER with stable vitals. He reported dizziness that he described as a combination of lightheadedness and motion but the symptoms were reproducible with position change and a to have mild horizontal nystagmus indicating this is most likely peripheral vertigo. Without truncal ataxia I have low concern for posterior circulation stroke or vertebrobasilar insufficiency. In order to ensure he was not having symptoms based on brain mass or spontaneous bleed I did elect to perform a head CT. Also to check for acute blood loss anemia acute kidney injury or clinically significant electrolyte abnormality basic blood work was ordered. Labs revealed no clinically significant finding. Head CT revealed no signs of bleed or mass. After receiving IV fluid as well as Valium he had improvement of his symptoms and could ambulate with a steady gait. Therefore at this time with overall negative workup and improvement of his dizziness and the fact he is now able to ambulate the steady gait I do not feel there is need for further intervention or workup at he is otherwise safe for discharge History & Record Review Discussion w/independent historian: Patient and Significant other Lab Data Attestation: I reviewed the patient's lab results. Labs: Laboratory Results - last 24 hr 01/20/25 23:27 WBC 9.0 RBC 4.39 L Hgb 13.2 Hct 39.7 L MCV 90.4 MCH 30.1 MCHC 33.2 RDW Std Deviation 42.8 RDW Coeff of Ras 13.0 Plt Count 224 MPV 12.0 Immature Gran % (Auto) 0.600 Neut % (Auto) 71.9 H Lymph % (Auto) 16.1 L Bullock % (Auto) 9.6 Eos % (Auto) 1.6 Baso % (Auto) 0.2 Absolute Neuts (auto) 6.5 Absolute Lymphs (auto) 1.45 Nucleated RBC % 0 Sodium 136 Potassium 3.5 Chloride 102 Carbon Dioxide 23.0 Anion Gap 11 BUN 10 Creatinine 0.99 Estim Creat Clear Calc 90.66 Est GFR (MDRD) Non-Af 89 BUN/Creatinine Ratio 10.1 Glucose 90 Calcium 8.7 Magnesium 1.8 Radiography Diagnostic Testing: Clinical Impression(s) from Imaging Studies Brain CT 01/21/25 00:44 IMPRESSION: No acute intracranial findings. Reading Location: [place] [address] Discharge Plan Triage Chief Complaint: Dizziness ED Provider: Jj Koch Dx/Rx/DC Orders Clinical Impression: Peripheral vertigo, Hypothyroidism, Cerebral palsy Instructions: ED Dizziness, Uncertain Cause, ED Vertigo, Unspecified Prescriptions: New diazepam [Valium] 5 mg tablet 5 mg PO TID PRN (Reason: Vertigo/dizziness) 5 Days Qty: 15 0RF No Action omeprazole 20 MG capsule 20 mg PO DAILY multivitamin Tablet 1 tab PO DAILY acetaminophen 500 mg Tablet 1,000 mg PO Q6H PRN PRN (Reason: Pain Score 1-5) Qty: 0 0RF citalopram 40 mg Tablet 40 mg PO DAILY Qty: 0 0RF vitamin B complex Tablet 1 tab PO DAILY lorazepam 1 mg tablet 1 mg PO Q8H PRN PRN (Reason: Anxiety) levothyroxine 150 mcg tablet 150 mcg PO DAILY clindamycin HCl [Cleocin HCl] 300 mg capsule 300 mg PO Q6H Qty: 40 0RF Primary Care Provider: Sai Cobian Referrals: Sai Cobian MD [Primary Care Provider] - Activity Restrictions/Additional Instructions: Your workup today is most consistent with peripheral vertigo. Please stop your lorazepam and begin using the Valium that was prescribed as this will better help to control your symptoms. Stay well-hydrated and continue your other medications as directed. Return to the ER should you have any further concerns Print Language: Frisian Disposition Disposition: Home, Self Care Discharge Date/Time: 01/21/25 02:41
[2025-01-21 02:33] VITALS: BP 120/80; PULSE 59; RESP 19; TEMP 36.7; O2SAT 96
== END 2025-01-21 02:41 | disposition home or self-care (01) ==
PROVIDERS: Emergency Provider Emergency Medicine; PCP Family Medicine; Visit Provider Emergency Medicine
DX: H81.399 Other peripheral vertigo, unspecified ear (principal); G80.9 Cerebral palsy, unspecified; E03.9 Hypothyroidism, unspecified; F17.210 Nicotine dependence, cigarettes, uncomplicated; F17.290 Nicotine dependence, other tobacco product, uncomplicated
CPT/HCPCS: 70450; 80048; 83735; 85025; 96360; 99285

== ENCOUNTER 2025-01-29 21:00 | Emergency (ER) | payer MEDICARE, MEDICAID, SELFPAY ==
[2025-01-29 21:00] VITALS: BP 134/82; PULSE 76; RESP 16; TEMP 36.9; O2SAT 97; BMI 35.8
--- NOTE | 2025-01-29 23:02 | EX.ED.DYSGE1 ---
HPI History of Present Illness Chief Complaint: General Illness Informant: patient Narrative Narrative: Patient is a 59-year-old male with past medical history of cerebral palsy and anxiety. He reports he was recently treated with 2 antibiotics secondary to diverticulitis. He states he then was seen and diagnosed with thrush. He reports he was placed on nystatin. He states that he was informed that after 1 day he should have improvement of his mouth/throat pain. He states he has used the nystatin as directed for the last 1 to 2 days but he does not feel any improvement to his symptoms and therefore he comes in for evaluation. [facility] Medical History Alcohol abuse Anxiety History of trigger finger Alcohol abuse Chronic pain Smoker CPAP (continuous positive airway pressure) dependence Sleep apnea Cerebral palsy Home Medications ?Medication ?Instructions ?Recorded ?Last Taken ?Type omeprazole 20 mg capsule,delayed 20 mg PO DAILY GERD 02/05/19 04/23/24 History release multivitamin 1 tab PO DAILY supplement 12/04/20 04/22/24 History acetaminophen 500 mg tablet 1,000 mg (2 x 500 mg) PO Q6H PRN 12/23/20 Unknown Rx PRN Pain Score 1-5 #0 tabs citalopram 40 mg tablet 40 mg PO DAILY #0 tabs 12/23/20 04/23/24 Rx lorazepam 1 mg tablet 1 mg PO Q8H PRN PRN Anxiety 02/27/22 04/22/24 History vitamin B complex 1 tab PO DAILY 02/27/22 04/22/24 History clindamycin HCl 300 mg capsule 300 mg PO Q6H #40 CAPSULES 11/05/24 Unknown Rx (Cleocin HCl) levothyroxine 150 mcg tablet 150 mcg PO DAILY 11/05/24 Unknown History diazepam 5 mg tablet (Valium) 5 mg PO TID PRN Vertigo/dizziness 01/21/25 Unknown Rx 5 days #15 tabs MAGIC MOUTH WASH (BMX) 180 mL 10 ml PO 4X/DAY PRN pain #180 mL 01/29/25 Unknown Rx suspension fluconazole 100 mg tablet 100 mg PO BID 7 days #14 tabs 01/29/25 Unknown Rx (Diflucan) ondansetron 4 mg disintegrating 4 mg PO TID PRN nausea and 01/29/25 Unknown Rx tablet vomiting #21 tabs oxycodone-acetaminophen 5 mg-325 1 tab PO Q6H PRN pain 3 days #12 01/29/25 Unknown Rx mg tablet (Percocet) tabs Allergy/AdvReac Type Severity Reaction Status Date / Time No Known Allergies Allergy Verified 01/29/25 21:01 Family History Other Cancer Diabetes Surgical History History of tonsillectomy H/O hand surgery Social History household members: other details: Roommate who does not help him cook or clean. Smoking Status: Current every day smoker tobacco type: cigarettes and e-cigarettes alcohol intake: current alcohol intake frequency: 3 or more drinks per day Alcohol type: hard liquor ROS ROS ED Constitutional Constitutional ED: Denies chills or fever(s) ENT ENT ED: Reports ear pain bilateral and sore throat Cardiovascular Cardiovascular: Denies chest pain Respiratory/Chest Respiratory/Chest: Denies cough or dyspnea Gastrointestinal Gastrointestinal: Reports nausea; Denies abdominal pain, diarrhea or vomiting Musculoskeletal Musculoskeletal: Denies myalgias Integumentary Denies rash Neurologic Neurologic: Denies headache(s) Hematologic/Lymphatic Hematologic/Lymphatic: Denies easy bleeding or easy bruising Allergic/Immunologic Allergic/Immunologic ED: Denies mouth swelling or tongue swelling EXAM Physical Exam Const Vital Signs: 01/29/25 21:00 Temperature 98.4 F Temperature Source Oral Pulse Rate 76 Respiratory Rate 16 Blood Pressure 134/82 H Blood Pressure Mean 99 Pulse Ox 97 Oxygen Delivery Method Room Air Positive well nourished and well developed General Appearance ED: well developed; Negative for pallor HEENT HEENT Narrative: No tongue or lip swelling Patient has a white scrappable covering to the tongue consistent with thrush. There are white exudates throughout the buccal mucosa and diffuse erythema in the posterior pharynx consistent with thrush No trismus change in voice or difficulty with secretions. No airway edema or compromise Bilateral TMs are retracted but show no secondary findings to suggest infection Nasal mucosa is hyperemic and boggy Eyes PERRL and EOMs intact bilaterally General Eye ED: Negative for scleral icterus Neck supple Neck Narrative: No subcutaneous emphysema noted Resp normal respiratory effort and clear to auscultation bilaterally Cardio regular rate and regular rhythm Extremity normal to inspection Neuro oriented x3, CN's II-XII intact bilaterally and no sensory deficits noted Sensorium / Orientation: alert Psych Mood & Affect: anxious Skin no rashes or lesions noted General Skin Exam: Negative for jaundice or pallor MDM MDM MDM Narrative Medical decision making narrative: Patient arrived to the ER with stable vitals. He reported only 1 to 2 days of nystatin treatment for his thrush without symptom improvement. Exam is consistent with thrush and there is no obvious findings to suggest a peritonsillar abscess or retropharyngeal abscess or epiglottitis. With stable vitals and an exam consistent with his current diagnosis I do not feel the need for further testing. The patient will be placed on systemic Diflucan as well as pain medication and Magic mouthwash to see if this helps with his symptoms while the nystatin takes effect. But as he does not have physical exam findings of significant dehydration or respiratory distress or airway compromise there is no need for further workup and he is otherwise safe for discharge. History & Record Review Discussion w/independent historian: Patient Discharge Plan Triage Chief Complaint: General Illness ED Provider: Jj Koch Dx/Rx/DC Orders Clinical Impression: Oral thrush, Acute dysfunction of both eustachian tubes, Anxiety, Cerebral palsy Instructions: Eustachian Tube Problems, Elizabeth Infection: Thrush Prescriptions: New MAGIC MOUTH WASH (BMX) 180 mL suspension 10 ml PO 4X/DAY PRN (Reason: pain) Qty: 180 1RF Rx Instructions: diphenhydramine 12.5 mg/5 mL oral liquid 60 mL; aluminum-mag hydroxide-simethicone 400 mg-400 mg-40 mg/5 mL oral susp 60 mL; Lidocaine Viscous 2 % mucosal solution 60 mL; Per 180 mL ondansetron 4 mg tablet,disintegrating 4 mg PO TID PRN (Reason: nausea and vomiting) Qty: 21 0RF fluconazole [Diflucan] 100 mg tablet 100 mg PO BID 7 Days Qty: 14 0RF oxycodone-acetaminophen [Percocet] 5-325 mg tablet 1 tab PO Q6H PRN (Reason: pain) 3 Days Qty: 12 0RF No Action omeprazole 20 MG capsule 20 mg PO DAILY multivitamin Tablet 1 tab PO DAILY acetaminophen 500 mg Tablet 1,000 mg PO Q6H PRN PRN (Reason: Pain Score 1-5) Qty: 0 0RF citalopram 40 mg Tablet 40 mg PO DAILY Qty: 0 0RF vitamin B complex Tablet 1 tab PO DAILY lorazepam 1 mg tablet 1 mg PO Q8H PRN PRN (Reason: Anxiety) diazepam [Valium] 5 mg tablet 5 mg PO TID PRN (Reason: Vertigo/dizziness) 5 Days Qty: 15 0RF levothyroxine 150 mcg tablet 150 mcg PO DAILY clindamycin HCl [Cleocin HCl] 300 mg capsule 300 mg PO Q6H Qty: 40 0RF Primary Care Provider: Sai Cobian Referrals: Sai Cobian MD [Primary Care Provider] - Activity Restrictions/Additional Instructions: Please continue with the nystatin that was prescribed by your family doctor to add the medications from the ER to help resolve symptoms and control pain. Return to the ER should you have any further concerns. It will typically take 3 to 5 days for symptom improvement Print Language: Tanzanian Disposition Disposition: Home, Self Care Discharge Date/Time: 01/29/25 23:31
[2025-01-29] MEDS: BMX LIQUID 180 ML 15 ML PO (23:29)
== END 2025-01-29 23:31 | disposition home or self-care (01) ==
PROVIDERS: Emergency Provider Emergency Medicine; PCP Family Medicine; Visit Provider Emergency Medicine
DX: B37.0 Candidal stomatitis (principal); G80.9 Cerebral palsy, unspecified; H69.93 Unspecified Eustachian tube disorder, bilateral; F17.210 Nicotine dependence, cigarettes, uncomplicated; F41.9 Anxiety disorder, unspecified; Z99.89 Dependence on other enabling machines and devices; G47.30 Sleep apnea, unspecified
CPT/HCPCS: 99283

== ENCOUNTER 2025-04-06 22:12 | Emergency (ER) | payer MEDICARE, MEDICAID, SELFPAY ==
[2025-04-06 22:14] VITALS: BP 129/81; PULSE 56; RESP 16; TEMP 36.8; O2SAT 97; BMI 36.4
[2025-04-06] MEDS: 0.9% Normal Saline (1000mL) 1,000 ML 999 ML IV (22:58)
[2025-04-06] MEDS: Pantoprazole Sodium 40 MG in 0.9% Normal Saline (100mL MB+) 100 ML 300 MG IV (22:59)
[2025-04-06 23:07] LABS: Hematocrit 42.0 % (40-54); Hemoglobin 14.7 g/dL (13.0-16.5); Immature Granulocytes Count 0.030 X10^3/uL (0.0-0.0); Mean Corp Hgb Conc 35.0 g/dL (32-36); Mean Corpuscular Volume 87.5 fL (80-94); Mean Platelet Vol. 10.0 fl (6.2-12.0); NRBC Flagged by Analyzer 0 % (0-5); Platelet Count 289 K/mm3 (150-450); RBC Distribution Width CV 14.5 % (11.6-14.6); RBC Distribution Width SD 46.5 fl (35.1-43.9); Red Blood Count 4.80 M/mm3 (4.6-6.2); White Blood Count 9.4 K/mm3 (4.4-11.0)
--- OUTSIDE RECORDS SUMMARY | 2025-04-06 23:18 | XMS RPT_ITS | CCD ---
Author Organization [facility] Care Team Providers Care Quarantine Officer Name Role Phone Mathew Cobian MD Primary Care Provider MATHEW COBIAN Primary Care Unavailable AISHA STOREY Referring Unavailable CONSULT, SURGERY - NEURO Consulting Unavail able MATHEW COBIAN Primary Care Unavailable CRISTINA CHAN Admitting Unavailable CRISTINA CHAN Attending Unavailable Unavailable Primary Care Provider UnavailMathew Yanes MD Primary Care Provider Mathew Cobian MD Primary Care Provider Jaswinder RN, Sp Mix Unavailable MATHEW COBIAN Primary Care Unavailable RAPHAEL CALDERON JR Referring Unavaila MATHEW Barth Primary Care Unavailable SUNDAY HUTTON Attending Unavailable GILSON BAR Referring Unavailable GILSON BAR Admitting Unavailable MATHEW COBIAN Primary Care Unavailable GILSON BAR Referring Unavailable GILSON BAR Attending Unavailable Yahaira MORTUARY BEAUTICIAN.Gypsy BLANKENSHIP Unavailable Daiana MORTUARY BEAUTICIANBrian CORNELIUS Unavailable DR MATHEW COBIAN MD Primary Care Physician DR MATHEW COBIAN MD Primary Care Unavailab KAE Escalera DO Attending Unavailable RAPHAEL CALDERON JR Referring Unavaila MATHEW Barth Primary Care Unavailable Dr. Mathew Cobian MD Primary Care Provider [phone] Dr. Franklyn Donaldson DO Attending Provider Dr. Franklyn Donaldson DO Emergency Provider Salvatore Watkins MD Emergency Provider Dr. Mathew Cobian MD Primary Care Provider [phone] Salvatore Watkins MD Attending Provider Zee RIVERA, Dr. Gardner Emergency Provider Zee RIVERA, Dr. Gardner Attending Provider Salvatore Watkins Attending Unavailable Elderbrock, Mathew Primary Care Unavailable Franklyn Donaldson Attending Unavailable Elderbrock, Mathew Primary Care Unavailable Franklyn Donaldson Attending Unavailable Elderbrock, Mathew Primary Care Unavailable Jj Koch Attending Unavailable Elderbrock, Mathew Primary Care Unavailable Jj Koch Attending Unavailable Elderbrock, Mathew Primary Care Unavailable GILSON BAR Attending Unavailable ELDERBROCK, MATHEW D Primary Care Unavailable BETITO, DEVI Y Attending Unavailable ELDERBROCK, MATHEW D Primary Care Unavailable DAIANA, BRIAN Attending Unavailable ELDERBROCK, MATHEW D Primary Care Unavailable DAIANA, BRIAN Referring Unavailable ELDERBROCK, MATHEW D Primary Care Unavailable ELDERBROCK, MATHEW D Primary Care Unavailable KNOBLEINO Attending Unavailable ELDERBROCK, MATHEW D Primary Care Unavailable KNOBLEINO Attending Unavailable ELDERBROCK, MATHEW D Primary Care Unavailable KNOBLEINO Referring Unavailable ELDERBROCK, MATHEW D Primary Care Unavailable VETOVITZ, TAMMIE Referring Unavailable ELDERBROCK, MATHEW D Primary Care Unavailable ELDERBROCK, MATHEW D Primary Care Unavailable SELF Referring Unavailable VETOVITZ, TAMMIE Attending Unavailable DAIANA, BRIAN Attending Unavailable ELDERBROCK, MATHEW D Primary Care Unavailable DAIANA, BRIAN Referring Unavailable ELDERBROCK, MATHEW D Primary Care Unavailable TANNROMYFGYPSY Attending Unavailabl e ELDERBROCK, MATHEW D Primary Care Unavailable TANNHOFGYPSY Referring Unavailabl e ELDERBROCK, MATHEW D Primary Care Unavailable BETITO, DEVI Y Attending Unavailable ELDERBROCK, MATHEW D Primary Care Unavailable GREYSON ELLSWORTH Attending Unavailable ELDERBROCK, MATHEW D Primary Care Unavailable KNOBLE, INO Attending Unavailable ELDERBROCK, MATHEW D Primary Care Unavailable KNOBLE INO Attending Unavailable ELDERBROCK, MATHEW D Primary Care Unavailable ELDERBROCK, MATHEW D Attending Unavailable DAIANA, BRIAN Attending Unavailable ELDERBROCK, MATHEW D Primary Care Unavailable ELDERBROCK, MATHEW D Primary Care Unavailable KNOBLE, INO Referring Unavailable ELDERBROCK, MATHEW D Primary Care Unavailable MEGA LOJA Attending Unavailable MATHEW COBIAN Primary Care Unavailable INO ESQUEDA Attending Unavailable RAPHAEL CALDERON JR Referring Unavaila ble MATHEW COBIAN Primary Care Unavailable BRIAN AHMADI Referring Unavailable GILSON BAR Attending Unavailable MATHEW COBIAN Primary Care Unavailable MATHEW COBIAN Primary Care Unavailable VETOVITZ, TAMMIE Referring Unavailable MATHEW COBIAN Primary Care Unavailable VETOVITZ, TAMMIE Referring Unavailable VETOVITZ, TAMMIE Attending Unavailable BRIAN AHMADI Attending Unavailable MATHEW COBIAN Primary Care Unavailable MATHEW COBIAN Attending Unavailable MATHEW COBIAN Primary Care Unavailable Medications Current Medications Medication Drug Class(es) Dates Sig (Normalized) Sig (Original) acetaminophen 300 mg / codeine phosphate 30 mg oral tablet (2 sources) Opioid Agonist Start: 11-01-2023 End: 11-04-2023 take 1 tablet by mouth every four hours as needed acetaminophen-code ine (TYLENOL-COD #3) 300-30 mg per tablet Indications: [...] / oxyCODONE hydrochloride 5 mg oral tablet (19 sources) Opioid Agonist Start: 01-29-2025 take 1 tablet by mouth every six hours as needed for pain Oxycodone-Acetamin ophen (Percocet) 5-325 mg tablet Active 1 {tbl} PO EVERY 6 HOURS as needed for pain 12 3 0 January 29, 2025 Candidiasis of mouth Candidal stomatitis Start: 07-22-2024 End: 01-21-2025 Oxycodone-Acetaminophen (End ocet) 5-325 mg tablet Discontinued 1 {tbl} PO EVERY 6 HOURS as needed for pain 12 3 0 July 22, 2024 January 21, 2025 1:10am Closed fracture of proximal end of right fibula Start: 02-05-2019 End: 02-09-2019 Oxycodone-Acetaminophen 1 TA BLET tablet Discontinued 1 {tbl} PO EVERY 6 HOURS NEEDED as needed for Pain 12 3 0 February 05, 2019 February 07, 2019 12:00am February 09, 2019 12:09am Left shoulder pain Pain in left shoulder Start: 02-05-2019 End: 02-09-2019 take 1 tablet by mouth every six hours as needed Oxycodone-Acetaminophen Discontinued 1 TABLET PO EVERY 6 HOURS NEEDED 12 3 February 05, 2019 February 09, 2019 12:09am Start: 03-10-2018 End: 03-27-2018 Oxycodone-Acetaminophen 1 TA BLET tablet Discontinued 1 {tbl} PO EVERY 4 HOURS NEEDED as needed for Pain 20 5 0 March 10, 2018 12:00am March 27, 2018 8:18pm Intractable low back pain Low back pain Start: 03-10-2018 End: 03-27-2018 take 1 tablet by mouth every four hours as needed Oxycodone-Acetaminophen Discontinued 1 TABLET PO EVERY 4 HOURS NEEDED 20 5 March 10, 2018 12:00am March 27, 2018 8:18pm Start: 11-20-2017 End: 11-25-2017 Oxycodone-Acetaminophen 1 TA BLET tablet Discontinued 1 {tbl} PO EVERY 6 HOURS NEEDED as needed for Pain 12 3 0 November 20, 2017 12:00am November 25, 2017 10:02am Back pain Dorsalgia, unspecified Start: 11-20-2017 End: 11-25-2017 take 1 tablet by mouth every six hours as needed Oxycodone-Acetaminophen Discontinued 1 TABLET PO EVERY 6 HOURS NEEDED 12 3 November 20, 2017 12:00am November 25, 2017 10:02am [id number] 200 actuat albuterol 0.09 mg/actuat metered dose [...] 12:00am carbamide peroxide 65 mg/ml otic solution (8 sources) Start: 03-18-2025 carbamide peroxide (DEBROX) 6.5 % otic solution Indications: Bilateral impacted cerumen Use 4-5 drops in both ears every hour as needed for up to 5 doses. 15 mL 03/18/2025 Active Start: 09-14-2023 End: 09-19-2023 carbamide peroxide (DEBROX) 6.5 % otic solution Indications: Bilateral impacted cerumen Use 5 Drops in both ears two times a day for 5 days. 15 mL 0 09/14/2023 09/19/2023 Active Comment on above: Use 5 Drops in both ears two times a day for 5 days. cefdinir 300 mg oral capsule (7 sources) Cephalosporin Antibacterial Start: End: take 1 capsule by mouth twice daily [...] on above: Take 2,000 mcg by mo [facility] once daily. citalopram 40 mg oral tablet (20 sources) Serotonin Reuptake Inhibitor Start: 12-04-2020 End: 12-23-2020 Citalopram 20 mg tablet Discontinued 20 mg PO DAILY December 04, 2020 7:05pm December 23, 2020 7:26pm Mood for 1 week, then stop Start: 11-18-2020 End: 08-06-2024 take 1 tablet by mouth once daily citalopram (CELEXA) 40 mg tablet Take 1 tablet by mouth once daily. 90 tablet 3 08/06/2024 Active Start: 11-02-2018 End: 12-04-2020 take 2 tablets by mouth once daily Citalopram 20 MG tablet Discontinued 40 mg PO DAILY November 02, 2018 3:08pm December 04, 2020 3:16pm mood Start: 11-02-2018 End: 12-04-2020 take 40 mg by mouth once daily Citalopram Discontinued 40 MG PO DAILY November 02, 2018 3:08pm December 04, 2020 3:16pm Start: 11-01-2018 End: 11-02-2018 take 1 tablet by mouth once daily Citalopram 20 MG tablet Discontinued 20 mg PO DAILY 0 November 01, 2018 12:00am November 02, 2018 3:08pm take 4 tablets by mo [facility] once daily Citalopram 10 MG tablet Take 4 tablets by mouth daily. Active Comment on above: Take 40 mg by mouth once daily. Take 1 tablet by radha once daily. clindamycin 300 mg oral capsule (3 sources) Lincosamide Antibacterial Start: take 1 capsule by mouth every six hours Clindamycin Hcl (Cleocin Hcl) 300 mg capsule Active 300 mg PO EVERY 6 HOURS 40 0 November 05, 2024 12:00am CPAP (20 sources) Start: CPAP Indications: Sleep apnea, unspecified type Initiate CPAP @ 7 cm of water with humidification. Mask (per patient preference) optional chin strap (if indicated) , filters, tubing, humidifier and lifetime supplies. 1 each 03/13/2025 Active Start: 12-23-2021 End: 03-13-2025 CPAP Indications: Sleep apne a, unspecified type Initiate CPAP @ 7 cm of water with humidification. Mask (per patient preference) optional chin strap (if indicated) , filters, tubing, humidifier and lifetime supplies. 1 Each 12/23/2021 03/13/2025 Discontinued Start: 12-23-2021 CPAP Indicatio ns: Sleep apnea, [...] , filters, tubing, humidifier and lifetime supplies. diazePAM 5 mg oral tablet (2 sources) Benzodiazepine Start: take 1 tablet by mouth three times daily as needed for dizziness Diazepam (Valium) 5 mg tablet Active 5 mg PO THREE TIMES A DAY as needed for Vertigo/dizziness 15 5 0 January 21, 2025 12:00am doxycycline hyclate 100 mg oral tablet (2 sources) Tetracycline-class Drug Start: 024 End: take 1 tablet by mouth twice daily doxycycline (VIBRA-TABS) 100 mg tablet Indications: Sinobronchitis Take 1 tablet by mouth two times a day for 10 days. 20 tablet 0 08/15/2023 08/25/2023 Active Comment on above: Take 1 tablet by radha th two times a day for 10 days. fexofenadine hydrochloride 180 mg oral tablet (20 sources) Histamine-1 Receptor Antagonist Start: End: take 1 tablet by mouth once daily fexofenadine (JOHANA ALLERGY) 180 mg tablet Take 1 tablet by mouth once daily. 30 tablet 11 03/13/2025 Active fluconazole 100 mg oral tablet (1 source) Azole Antifungal Start: take 1 tablet by mouth twice daily Fluconazole (Diflucan) 100 mg tablet Active 100 mg PO TWICE A DAY 14 7 0 January 29, 2025 12:00am fluticasone propionate 0.05 mg/actuat metered dose nasal spray (20 sources) Corticosteroid Start: take 1 spray(s) nasal route once daily [...] 12-04-2020 End: 12-04-2020 Fluticasone Propionate 50 mcg/actuation Anna,Suspension Discontinued 1 NMA NASAL TWICE A DAY December 04, 2020 12:00am December 04, 2020 7:05pm Start: 12-04-2020 End: 12-04-2020 Fluticasone Propionate Disco ntinued 1 SPRAY NASAL TWICE A DAY December 04, 2020 12:00am December 04, 2020 7:05pm glycerin 2 mg/ml / hypromellose 2 mg/ml / polyethylene glycol 400 10 mg/ml ophthalmic solution (1 source) Non-Standardized Chemical Allergen Start: 12-23-2020 Peg 734-[id number]-Yakjwwea (Artificial Tears(Qm-Kkfc-Fjcg)) 1-0.2-0.2 % Drops Active 1 DRP EACH [...] (20 sources) l-Thyroxine Start: 04-14-20 End: 04-24-20 take 1 tablet by mouth once daily [...] Tablet Discontinued 225 ug PO DAILY@0600 0 0 December 23, 2020 12:00am September 26, 2023 5:05pm Start: 12-23-2020 take 225 ug by mouth once allison y Levothyroxine Active 225 MCG PO DAILY@0600 0 December 23, 2020 12:00am Start: 12-04-2020 End: 12-23-2020 take 2 tablets by mouth once daily Levothyroxine 100 mcg tablet Discontinued 200 ug PO DAILY@599December 04, 2020 7:05pm December 23, 2020 7:26pm Thyroid Start: 12-04-2020 End: 12-23-2020 take 200 ug [...] 21, 2016 12:00am December 04, 2020 3:17pm thyroid Start: 05-21-2016 End: 12-04-2020 take 200 ug by mouth once daily Levothyroxine Disconti nued 200 MCG PO DAILY May 21, 2016 12:00am December 04, 2020 3:17pm Comment on above: Take 1 tablet by radha th once daily. Take on empty stomach. For Thyroid. take 1 tablet by radha th once daily on an empty stomach loratadine 10 mg oral tablet (17 sources) Start: 12-25-2024 End: 02-23-2025 take 1 tablet by mouth once daily as needed loratadine (CLARITIN) 10 mg tablet Take 1 tablet by mouth once daily as needed (for allergy symptoms). 30 tablet 1 12/25/2024 02/23/2025 Active Start: 10-16-2018 End: 10-16-2018 take 1 tablet by mouth once daily Loratadine (Claritin) 10 MG tablet Discontinued 10 mg PO DAILY 1 October 16, 2018 12:00am October 16, 2018 6:49pm LORazepam 0.5 mg oral tablet (20 sources) Benzodiazepine Start: 02-11-2025 End: 03-13-2025 take 1-2 tablets by mouth once daily as needed LORazepam (ATIVAN) 0.5 mg Indications: Anxiety Take 1-2 tablets by mouth once daily as needed for up to 30 days. 60 tablet 02/11/2025 03/13/2025 Active Start: 07-12-2024 End: 08-11-2024 take 1-2 tablets [...] HOURS NEEDED as needed for Anxiety 42 7 0 December 23, 2020 12:00am February 27, 2022 3:58pm Start: 11-22-2020 End: 12-04-2020 take 1 tablet by mouth once daily as needed for anxiety Lorazepam (Ativan) 1 mg tablet Discontinued 1 mg PO DAILY as needed for anxiety 10 November 22, 2020 12:00am December 04, 2020 3:16pm Start: 11-25-2017 End: 11-01-2018 take 1 tablet by mouth twice daily as needed for anxiety Lorazepam 1 MG tablet Discontinued 1 mg PO TWICE A DAY as needed for Anxiety 4 November 25, 2017 10:01am November 01, 2018 [...] as needed for up to 90 days. Magic Mouth Wash (Bmx) 180 mL suspension (1 source) Start: Magic Mouth Wash (Bmx) 180 mL suspension Active 10 mL PO 4 TIMES DAILY as needed for pain 180 January 29, 2025 11:04pm diphenhydramine 12.5 mg/5 mL oral liquid 60 mL; aluminum-mag hydroxide-simethicone 400 mg-400 mg-40 mg/5 mL oral susp 60 mL; Lidocaine Viscous 2 % mucosal solution 60 mL; Per 180 mL metroNIDAZOLE 500 mg oral tablet (7 sources) Nitroimidazole Antimicrobial Start: End: take 1 tablet by mouth three times [...] 12:00am December 04, 2020 7:05pm Multivitamin tablet (6 sources) Start: 12-04-2020 Multivitamin t ablet Active 1 {tbl} PO DAILY December 04, 2020 7:05pm supplement Start: 12-04-2020 Multivitamin t ablet Active 1 {tbl} PO DAILY December 04, 2020 7:05pm Start: 12-04-2020 End: 12-04-2020 Multivitamin tablet Disconti nued 1 {tbl} PO DAILY December 04, 2020 12:00am December 04, 2020 7:05pm Start: 12-04-2020 End: 12-04-2020 Multivitamin tablet Disconti nued 1 {tbl} PO DAILY December 04, 2020 12:00am December 04, 2020 7:05pm nystatin 120671 unt/ml oral suspension (3 sources) Polyene Antifungal Start: 01-28-2025 End: 02-04-2025 take 5 mL by mouth four times daily nystatin (MYCOSTATIN) 100,000 unit/mL suspension Indications: Thrush Take 5 mL by mouth four times daily for 7 days. Swish and swallow. 140 mL 01/28/2025 02/04/2025 Active omeprazole 20 mg delayed release oral capsule (20 sources) Proton Pump Inhibitor Start: 02-05-2019 End: 03-13-2025 take 1 capsule by mouth once daily omeprazole (PRILOSEC) 20 mg capsule Indications: GERD without esophagitis Take 1 capsule by mouth once daily. 90 capsule 3 03/13/2025 Active Start: 12-05-2017 End: 10-16-2018 take 1 capsule by mouth once daily Omeprazole 20 MG capsule Discontinued 20 mg PO DAILY@0800 March 10, 2018 11:32am October 16, 2018 3:49pm acid reflux Comment on above: Take 1 capsule by mo [facility] once daily. take 1 capsule by mo [facility] once daily ondansetron 4 mg disintegrating oral tablet (4 sources) Serotonin-3 Receptor Antagonist Start: 01-30-20 take 1 tablet by mouth three times daily as needed for nausea and vomiting Ondansetron 4 mg tablet,disintegrati ng Active 4 mg PO THREE TIMES A DAY as needed for nausea and vomiting January 29, 2025 11:04pm Start: 07-22-2024 End: 11-05-2024 take 1 tablet by mouth every six hours as needed for nausea and vomiting Ondansetron 4 mg tablet,disintegrating Discontinued 4 mg PO EVERY 6 HOURS as needed for nausea and vomiting July 22, 2024 1:00am November 05, 2024 8:17pm sulfamethoxazole 800 mg / trimethoprim 160 mg oral tablet (3 sources) Dihydrofolate Reductase Inhibitor Antibacterial, Sulfonamide Antimicrobial Start: 04-12-2023 End: 04-19-2023 take 1 tablet by mouth twice daily sulfamethoxazole-trimethoprim (BACTRIM DS) 800-160 mg per tablet Indications: Prostatitis, acute Take 1 tablet by mouth twice daily for 7 days. 14 tablet 0 04/12/2023 04/19/2023 Active Comment on above: Take 1 tablet by [facility] twice daily for 7 days. triamcinolone acetonide 0.25 mg/ml topical cream (1 source) Corticosteroid Start: 02-17-2024 End: 02-24-2024 triamcinolone (KENALOG) 0.02 5 % cream Apply to affected area two times a day for 7 days. 15 g 0 02/17/2024 02/24/2024 Active Vitamin B Complex (1 source) Start: 02-27-2022 take 1 tablet by mouth once daily [...] Comment on above: Take 1 capsule by [facility] once daily. Vitamin B Complex Tablet (3 sources) Start: 02-27-2022 Vitamin B Complex Tablet Active 1 {tbl} PO DAILY February 27, 2022 12:00am Completed/Discontinued Medications Medication Drug Class(es) Dates Sig (Normalized) Sig (Original) Acetaminophen (20 sources) Start: 09-27-2023 End: 09-29-2023 take 1 tablet by mouth every four hours as needed Acetaminophen (TYLENOL) tablet 325 mg Start: 12-23-2020 take 2 tablets by mo [facility] every six hours as needed for pain Acetaminophen 500 mg Tablet Active 1000 mg PO EVERY 6 HOURS NEEDED as needed for Pain Score 1-5 0 0 December 23, 2020 12:00am Start: 12-23-2020 take 1000 mg by mout every six hours as needed Acetaminophen Active 1000 MG PO EVERY 6 HOURS NEEDED 0 December 23, 2020 12:00am Start: 03-10-2018 End: 03-27-2018 Acetaminophen (Tylenol) 325 MG tablet Discontinued 650 mg PO EVERY 6 HOURS NEEDED as needed for Mild Pain (scale 0-3)/T>100.7 0 March 10, 2018 12:00am March 27, 2018 [...] NEEDED as needed for Mild Pain (1-3/10) 0 December 05, 2017 12:00am March 10, 2018 [...] NEEDED as needed for Fever, headache, pain 0 November 25, 2017 12:00December 05, 2017 10:27pm take 1 tablet by radha th every four hours Acetaminophen 325 MG tablet Take 1 tablet by mouth every 4 hours. Active aluminum hydroxide 80 mg/ml / magnesium hydroxide 80 mg/ml / simethicone 8 mg/ml oral suspension (5 sources) Start: 03-10-2018 End: 03-27-2018 take 1 mL by mouth every six hours as needed Alum-Mag Hydroxide-Simeth (Mag-Al Plus Extra Strength) 30 ML Udc Discontinued 30 mL PO EVERY 6 HOURS NEEDED as needed for Gastric burning 0 March 10, 2018 12:00am March 27, 2018 8:18pm Start: 03-10-2018 End: 03-27-2018 take 1 mL by mouth every six hours as needed Alum-Mag Hydroxide-Simeth (Mag-Al Plus Extra Strength) 30 ML Udc Discontinued 30 ML PO EVERY 6 HOURS NEEDED March 10, 2018 12:00am March 27, 2018 8:18pm amoxicillin 500 mg / clavulanate 125 mg oral tablet (3 sources) Penicillin-class Antibacterial Start: 04-23-2024 End: 11-05-2024 Amoxicillin-Pot Clavulanate (Augmentin) 500-125 mg tablet Discontinued 1 {tbl} PO Q12H 14 7 0 April 23, 2024 12:00am November 05, 2024 [...] on above: Take 2 capsules by m outh three times a day as needed. 24 [...] 1 tablet by radha th once daily. cephalexin 500 mg oral capsule [...] Start: 02-27-2022 take 1 tablet by radha every week Cholecalciferol (Vitamin D3) (Vitamin D3) [...] on above: Take 1 capsule by mo [facility] one time a week. cyclobenzaprine hydrochloride 10 mg oral tablet (6 sources) Muscle Relaxant Start: 02-23-20 End: 04-16-20 [...] DAILY NEEDED as needed for Muscle Spasm 90 December 05, 2017 12:00am March 27, 2018 8:17pm diclofenac sodium 50 mg delayed release oral tablet (5 sources) Nonsteroidal Anti-inflammatory Drug Start: 12-05-2017 End: 03-27-2018 take 1 tablet by mouth twice daily as needed for pain Diclofenac Sodium 50 MG tablet Discontinued 50 mg PO TWICE A DAY as needed for Pain 30 0 December 05, 2017 12:00am March 27, 2018 [...] on above: Take 1 capsule by mo [facility] once daily. Enoxaparin Sodium (LOVENOX) injection 40 [...] heparin sodium, porcine 5000 unt/ml injectable solution (10 sources) Unfractionated Heparin, Anti-coagulant Start: 03-10-2018 End: 03-27-2018 Heparin (Porcine) 5,000 UNIT/ML Vial Discontinued 5000 U SC EVERY 12 HOURS March 10, 2018 11:32am March 27, 2018 8:18pm dvt prevention hydrALAZINE (APRESOLINE) injection 10 mg (2 sources) [...] 10 mg lidocaine 0.04 mg/mg medicated patch (11 sources) Antiarrhythmic, Amide Local Anesthetic Start: 09-26-2023 End: 09-29-2023 apply 1 dose transdermal route every twenty-four hours 1 patch, Transdermal, Administer over 12 Hours, EVERY 24 HOURS, First dose on Mon09/26/23 at 2245, Until Discontinued, Apply to back . Start: 11-25-2017 End: 12-05-2017 Lidocaine 1 PATCH patch Discontinued 1 NMA TOPICAL DAILY November 25, 2017 2:25pm December 05, 2017 10:28pm pain Please contact the information source for Protocol details. Start: 11-25-2017 End: 12-05-2017 apply 1 dose topically once daily Lidocaine Discontinued 1 PATCH TOPICAL DAILY November 25, 2017 2:25pm December 05, 2017 10:28pm magnesium hydroxide 80 mg/ml oral suspension (15 sources) Start: 10-16-2018 End: 11-01-2018 take 1 mL by mouth once daily as needed for constipation Magnesium Hydroxide 30 ML Udc Discontinued 30 mL PO DAILY NEEDED as needed for Constipation 0 October 16, 2018 12:00am November 01, 2018 [...] needed (dizziness) for up to 12 doses. Ondansetron 4mg/2ml (ZOFRAN) injection 4 mg (1 source) Start: End: take 4 mg intravenously every six hours as needed Ondansetron 4mg/2ml (ZOFRAN) injection 4 mg oxyCODONE hydrochloride 5 mg oral tablet (10 sources) Opioid Agonist Start: End: take 1 tablet by mouth every six hours as needed for pain Oxycodone 5 MG tablet Discontinued 5 mg PO EVERY 6 HOURS NEEDED as needed for Severe Pain () 30 7 0 November 21, 2018 8:31pm November 27, 2018 12:00am November 28, 2018 12:06am Intractable low back pain Low back pain pantoprazole 40 mg delayed release oral tablet (11 sources) Proton Pump Inhibitor Start: End: take [...] 16, 2018 6:49pm November 21, 2018 8:30pm 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 Polyethylene glycol (MIRALAX) packet 17 g (1 source) Start: 09-27-2023 End: 09-29-2023 Polyethylene glycol (MIRALAX) packet 17 g polyethylene glycol [id number] [id number] mg / potassium chloride 2970 mg / sodium bicarbonate 6740 mg / sodium chloride 5860 mg / sodium sulfate 47092 mg powder for oral solution (1 source) [...] 8.6 mg sertraline 50 mg oral tablet (10 sources) Serotonin Reuptake Inhibitor Start: 12-04-2020 End: 12-23-2020 Sertraline 50 mg tablet Discontinued 25 mg PO DAILY December 04, 2020 7:05pm December 23, 2020 7:26pm Mood continue for 1 week with citalopram, then [...] Date Documented Da te Episodic/Chronic Abdominal pain (4 sources) Right inguinal pain; Translations: [Right lower quadrant pain] 11-01-2023 Episodic Acute cerebrovascular disease (4 sources) Cerebrovascular accident; Translations: [Cerebral infarction, unspecified] Onset: 4 Resolved: 4 09-29-2023 Chronic Alcohol-related disorders (20 sources) Alcohol abuse; Translations: [Alcohol abuse, uncomplicated] 12-04-2020 Chronic Anxiety disorders (20 sources) Anxiety state; Translations: [Generalized anxiety disorder] Onset: 9 04-13-2021 Chronic Anxiety disorders (1 source) Feeling irritable; Translations: [Irritability and anger] 12-13-2023 Episodic Cancer of prostate (20 sources) Malignant tumor of prostate; Translations: [Malignant neoplasm of prostate] Onset: Chronic Cardiac and circulatory congenital anomalies (9 sources) Venous malformation; Translations: [Other malformations of cerebral vessels] Onset: 4 09-28-2023 Chronic Conditions associated with dizziness or vertigo (5 sources) Dizziness; Translations: [Dizziness and giddiness] Onset: 5 10-17-2023 Episodic Diseases of mouth; excluding dental (4 sources) Painful mouth; Translations: [Other lesions of oral mucosa] Onset: 5 11-05-2024 Episodic Disorders of teeth and jaw (3 sources) Abscess of hard palate; Translations: [Inflammatory conditions of jaws] 11-05-2024 Episodic Diverticulosis and diverticulitis (20 sources) Diverticulitis; Translations: [Diverticulitis of intestine, part unspecified, without perforation or abscess without bleeding] Onset: 4 04-30-2024 Chronic Esophageal disorders (15 sources) Gastroesophageal reflux disease; Translations: [Gastro-esophageal reflux disease without esophagitis] Chronic Fluid and electrolyte disorders (5 sources) Hyponatremia; Translations: [Hypo-osmolality and hyponatremia] 12-04-2020 Episodic Fracture of upper limb (15 sources) Fracture of humerus ; Translations: [Unspecified [...] [Acute prostatitis] 04-12-2023 Episodic Malaise and fatigue (14 sources) Asthenia; Translations: [Other malaise] Onset: 5 11-02-2018 Episodic Mood disorders (20 sources) Depressive disorder; Translations: [Depression] Onset: 4 Chronic Mycoses (5 sources) Candidiasis of mouth; Translations: [Candidal stomatitis] Onset: 5 01-28-2025 Episodic Nutritional deficiencies (4 sources) Vitamin D [...] unspecified] 06-09-2024 Chronic Other connective tissue disease (5 sources) Spasm; Translations: [Other muscle spasm] 12-04-2020 Episodic Other ear and sense organ disorders (5 sources) Bilateral objective tinnitus of ears; Translations: [Tinnitus, bilateral] 12-11-2020 Episodic Other ear and sense organ disorders (3 sources) Impacted cerumen of bilateral ears; Translations: [Impacted cerumen, bilateral] 09-14-2023 Episodic Other ear and sense organ disorders (1 source) Ear sensations - finding; Translations: [Other specified disorders of ear, bilateral] 12-14-2023 Episodic Other ear and sense organ disorders (1 source) Impacted cerumen, bilateral; Translations: [Bilateral impacted cerumen] Onset: Episodic Other liver diseases (5 sources) Elevated liver enzymes level; Translations: [Abnormal levels of other serum enzymes] 12-04-2020 Episodic Other lower respiratory disease (10 sources) Dyspnea; Translations: [Shortness of breath] 12-04-2020 Episodic Other lower respiratory disease (2 sources) Orthopnea; Translations: [Orthopnea] 03-28-2025 Episodic Other lower respiratory disease (1 source) Orthopnea; Translations: [Orthopnea] Onset: Episodic Other male genital disorders (2 sources) Pain of right testicle; Translations: [Right testicular pain] 11-01-2023 Episodic Other nervous system disorders (20 sources) Chronic low back pain; Translations: [Other chronic pain] Onset: 8 01-10-2018 Chronic Other nervous system disorders (1 source) Other chronic pain; Translations: [Chronic bilateral low back pain with right-sided sciatica] Onset: 8 Chronic Other nervous system disorders (1 source) Impaired cognition; Translations: [Other symptoms and signs involving cognitive functions and awareness] 09-14-2023 Episodic Other non-traumatic joint disorders (1 source) Acute pain; Translations: [Pain in left shoulder] Episodic Other non-traumatic joint disorders (2 sources) Shoulder pain; Translations: [Pain in left shoulder] Episodic Other non-traumatic joint disorders (8 sources) Pain in left shoulder; Translations: [Acute pain of left shoulder due to trauma] 11-02-2018 Episodic Other non-traumatic joint disorders (4 sources) Pain in right shoulder; Translations: [Right [...] skin; Translations: [Skin tags, multiple acquired] Onset: Episodic Other upper respiratory disease (1 source) Seasonal allergic rhinitis; Translations: [Other seasonal allergic rhinitis] 12-25-2024 Chronic Other upper respiratory disease (1 source) Allergic rhinitis; Translations: [Allergic rhinitis, unspecified] 01-27-2025 Chronic Other upper respiratory disease (1 source) Allergic rhinitis, unspecified; Translations: [Allergic rhinitis, unspecified seasonality, unspecified trigger] Onset: 5 Chronic Other upper respiratory disease (1 source) Other seasonal allergic rhinitis; Translations: [Seasonal allergic rhinitis, unspecified trigger] Onset: 5 Chronic Otitis media and related conditions (1 source) Dysfunction of eustachian tube; Translations: [Unspecified Eustachian tube disorder, bilateral] 01-29-2025 Episodic Paralysis (20 sources) Cerebral palsy; Translations: [Cerebral palsy, unspecified] Onset: 1 04-16-2021 Chronic Residual codes; unclassified (20 sources) Sleep apnea; Translations: [Sleep apnea, unspecified] Onset: 9 01-05-2018 Chronic Residual codes; unclassified (9 sources) Obstructive sleep apnea syndrome; Translations: [Obstructive sleep apnea (adult) (pediatric)] Chronic Residual codes; unclassified (1 source) Obstructive sleep apnea (adult) (pediatric); Translations: [Obstructive sleep apnea syndrome] Onset: Chronic Residual codes; unclassified (11 sources) Tobacco user; Translations: [Tobacco use] 11-28-2020 [...] site of unspecified knee, initial encounter] Onset: Episodic Substance-related disorders (20 sources) Nicotine dependence; Translations: [Nicotine dependence, unspecified, uncomplicated] Onset: 9 02-11-2019 Chronic Superficial injury; contusion (1 source) Abrasion, lower leg; Translations: [Abrasion, unspecified lower leg, initial encounter] 05-17-2024 Episodic Syncope (3 sources) Near syncope; Translations: [Syncope and collapse] Onset: 09-29-2023 Episodic Thyroid disorders (20 sources) Hypothyroidism; Translations: [Hypothyroidism, unspecified] Onset: 9 09-07-2015 Chronic Unclassified (5 sources) Multilevel spinal canal stenosis 11-02-2018 Unclassified (5 sources) Alcohol withdrawal delirium, acute, mixed level of activity 11-28-2020 Past or Other Problems Problem Classification Problem Date Documented Da te Episodic/Chronic Fracture of lower limb (11 sources) Closed fracture of upper end of [...] neck; Translations: [Neck mass] Onset: 04-17-2024 Episodic Other upper respiratory infections (3 sources) Sore throat symptom; Translations: [Acute pharyngitis, unspecified] Onset: 12-25-2024 12-25-2024 Episodic Residual codes; unclassified (1 source) Disorientation, unspecified; Translations: [Confusion] Onset: 06-03-2024 Episodic Residual codes; unclassified (2 sources) Other amnesia; Translations: [Memory changes] Onset: 04-17-2024 Episodic Spondylosis; intervertebral disc disorders; other back problems (20 sources) Sacroiliac disorder; Translations: [Sacrococcygeal disorders, not elsewhere classified] Onset: 04-17-2009 04-17-2009 Episodic Unclassified (1 source) Onset: 09-29-2023 09-29-2023 Viral infection (2 sources) Viral disease; Translations: [Viral infection, unspecified] Onset: 12-25-2024 12-25-2024 Episodic Results Test Name Value Interpretation Reference Range Facility [facility] [place] ([id number]) 1965 Date Time Provider Department 04/03/25 MATHEW COBIAN During your visit today, we recorded the following information about you: Laura Whaley MA 04/03/2025 9:43 AM Signed Office received fax from [employer] asking up updated order on pressure for pt CPAP. Pt is using [employer] for his CPAP supplies. This has been faxed back to [employer] notifying them of this information. Laura Whaley MA Allergies As of Date: 04/03/2025 (No Known Allergies) Date Reviewed: 03/28/2025 Reviewed by: Margarita Ferrara MA - Fully Assessed Prescriptions as of 04/03/2025 - carbamide peroxide (DEBROX) 6.5 % otic solution Use 4-5 drops in both ears every hour as needed for up to 5 doses. - CPAP Initiate CPAP @ 7 cm of water with humidification. Mask (per patient preference) optional chin strap (if indicated) , filters, tubing, humidifier and lifetime supplies. - omeprazole (PRILOSEC) 20 mg capsule Take 1 capsule by mouth once daily. - fexofenadine (JOHANA ALLERGY) 180 mg tablet Take 1 tablet by mouth once daily. - fluticasone (FLONASE ALLERGY RELIEF) 50 mcg/actuation nasal spray Use 1 spray in each nostril once daily. - citalopram (CELEXA) 40 mg tablet Take 1 tablet by mouth once daily. - levothyroxine (SYNTHROID) 150 mcg tablet Take 1 tablet by mouth once daily. - cholecalciferol, vitamin D3, (VITAMIN D3 ORAL) Take 2,000 mcg by mouth once daily. - multivit-min/folic/vit K/lycop (MEN'S 50 PLUS MULTIVITAMIN ORAL) Take 1 tablet by mouth once daily. - vitamin b complex capsule Take 1 capsule by mouth once daily. Problem List As Of Date 04/03/2025 Noted Resolved Sleep apnea [G47.30] 09/22/2008 Hypothyroidism [...] 05/12/2024 Encounter Status:Closed by LAURA WHALEY on 04/03/25 [facility] CNOVon 03-28-2025 CNOV Office Visit (FAMPWS ) -- [place] ([id number]) 1965 M Date Time Provider Department 03/28/25 10:40 AM [facility] your visit today, we recorded the following information about you: Pulse Blood pressure 72/minute 107/69 Ino Esqueda, MORTUARY BEAUTICIAN.PLUG MACHINE OPERATOR 03/28/2025 10:56 AM Signed Chief Complaint Patient presents with: Breathing Problem HPI [place] is a 59 year old male who presents here today for Above Complaints. Patient presents for Shortness of Breath only in reclining position. Patient does not have Shortness of Breath when lying flat or with activity. Patient also her for ear lavage as he was seen last week and has been treating with debrox at home. Past medical history, appointments, medications, allergies reviewed. 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 CPAP Initiate CPAP @ 7 cm of water with humidification. Mask (per patient preference) optional chin strap (if indicated) , filters, tubing, humidifier and lifetime supplies. omeprazole (PRILOSEC) 20 mg capsule Take 1 capsule by mouth once daily. fexofenadine (JOHANA ALLERGY) 180 mg tablet Take 1 tablet by mouth once daily. fluticasone (FLONASE ALLERGY RELIEF) 50 mcg/actuation nasal spray Use 1 spray in each nostril once daily. citalopram (CELEXA) 40 mg tablet Take 1 tablet by mouth once daily. levothyroxine (SYNTHROID) 150 mcg tablet Take 1 tablet by mouth once daily. cholecalciferol, vitamin D3, (VITAMIN D3 ORAL) Take 2,000 mcg by mouth once daily. multivit-min/folic/vit K/lycop (MEN'S 50 PLUS MULTIVITAMIN ORAL) Take 1 tablet by mouth once daily. vitamin b complex capsule Take 1 capsule by mouth once daily. No current facility-administered medications on file prior to visit. Social History SOCIAL HISTORY[1] Review of Symptoms REVIEW OF SYSTEMS SEE HPI EXAM: BP 107/69 Pulse 72 SpO2 96% General Appearance: Well appearing, alert, in no acute distress, well-hydrated, well nourished.. Ears: Negative findings: Left tympanic membrane normal. Mobility is good, Right tympanic membrane normal. Mobility is good, Positive findings: cerumen bilaterally, amount Small. Lungs: Lungs clear to auscultation. No wheezing, [...] Advantage Annual Wellness Visit Never done Influenza Vaccine(1) due on 03/24/2025 Colorectal Cancer Screening due on 05/13/2025 Annual PCP Team Chronic Disease Visit due on 03/18/2026 Diabetes Screening due on 01/18/2028 DTaP,Tdap,Td Vaccine(3 - Td or Tdap) due on 08/28/2028 Lipid Screening due on 09/25/2028 Prostate Cancer Screening Discussion due on 05/03/2029 Hepatitis C Screening Completed ASSESSMENT/PLAN: 1. Orthopnea - ICD9: 786.02, ICD10: R06.01 (primary diagnosis) - XR CHEST 2V FRONTAL/LAT 2. Bilateral impacted cerumen - ICD9: 380.4, ICD10: H61.23 -Cerumen significantly decreased, continue use of debrox 3 times weekly. Ino Esquead, KALEB.PLUG MACHINE OPERATOR [1] Social History Tobacco Use Smoking status: Former [...] 3/4 beers per week Drug use: No Allergies As (more content not included)... [facility] XR CHEST 2V FRONTAL/LATon XR CHEST 2V FRONTAL/LAT * * *Final Report* * * DATE OF EXAM: Mar 28 2025 11:15AM WOX [id number] - XR CHEST 2V FRONTAL/LAT / PROCEDURE REASON: Orthopnea * * * * Physician Interpretation * * * * EXAMINATION: CHEST RADIOGRAPH (2 VIEW FRONTAL and LATERAL) CLINICAL HISTORY: Orthopnea MQ: XC2_6 EXAM DATE/TIME: 03/28/2025 11:15 AM COMPARISON: 07/31/2023 RESULT: Lines, tubes, and devices: None. Lungs and pleura: Interstitial prominence, unchanged from previous chest. No consolidation, atelectasis, pleural effusions, or evidence of pneumothorax. Pulmonary vascularity normal. Cardiac size normal. Bony thorax intact. IMPRESSION: No acute radiographic abnormality. Gi Asst: [employer] Transcribe Date/Time: Mar 28 2025 12:20P Dictated by : MAREK CABALLERO MD This examination was interpreted and the report reviewed and electronically signed by: MAREK CABALLERO MD on Mar 28 2025 12:21PM EST [id number] [facility] XR Chest PA and Lateralon IMPRESSION: No acute radiographic abnormality. Gi Asst: [employer] Transcribe Date/Time: Mar 28 2025 12:20P Dictated by : MAREK CABALLERO MD This examination was interpreted and the report reviewed and electronically signed by: MAREK CABALLERO MD on Mar 28 2025 12:21PM EST DIVISION OF RADIOLOGY * * *Final Report* * * DATE OF EXAM: Mar 28 2025 11:15AM WOX [id number] - XR CHEST 2V FRONTAL/LAT / PROCEDURE REASON: Orthopnea * * * * Physician Interpretation * * * * EXAMINATION: CHEST RADIOGRAPH (2 VIEW FRONTAL & LATERAL) CLINICAL HISTORY: Orthopnea MQ: XC2_6 EXAM DATE/TIME: 03/28/2025 11:15 AM COMPARISON: 07/31/2023 RESULT: Lines, tubes, and devices: None. Lungs and pleura: Interstitial prominence, unchanged from previous chest. No consolidation, atelectasis, pleural effusions, or evidence of pneumothorax. Pulmonary vascularity normal. Cardiac size normal. Bony thorax intact. DIVISION OF RADIOLOGY Provider, [facility] - 03/28/2025 * * *Final Report* * * DATE OF EXAM: Mar 28 2025 11:15AM WOX [id number] - XR CHEST 2V FRONTAL/LAT / PROCEDURE REASON: Orthopnea * * * * Physician Interpretation * * * * EXAMINATION: CHEST RADIOGRAPH (2 VIEW FRONTAL & LATERAL) CLINICAL HISTORY: Orthopnea MQ: XC2_6 EXAM DATE/TIME: 03/28/2025 11:15 AM COMPARISON: 07/31/2023 RESULT: Lines, tubes, and devices: None. Lungs and pleura: Interstitial prominence, unchanged from previous chest. No consolidation, atelectasis, pleural effusions, or evidence of pneumothorax. Pulmonary vascularity normal. Cardiac size normal. Bony thorax intact. IMPRESSION IMPRESSION: No acute radiographic abnormality. Gi Asst: [employer] Transcribe Date/Time: Mar 28 2025 12:20P Dictated by : MAREK CABALLERO MD This examination was interpreted and the report reviewed and electronically signed by: MAREK CABALLERO MD on Mar 28 2025 12:21PM EST [facility] Radiology Study observation (narrative) [facility] XR Chest PA and LateralOrder ed By: [facility] Provider on 03-28-2025 [facility] CNOVon 03-18-2025 CNOV Office Visit (FAMPWS ) -- [place] ([id number]) 1965 M Date Time Provider Department 03/18/25 12:00 PM INO ESQUEDA FAMPWS During your visit today, we recorded the following information about you: Pulse Blood pressure Weight 56/minute 110/66 96 kg Ino Esqueda 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 03/18/2025 11:59 AM Signed Chief Complaint Patient presents with: Follow Up HPI [place] Luna is a 59 year old male who presents here today for Above Complaints.. Patient presents for CPAP follow up. Patient has been using CPAP nightly and reports improved daytime wakefulness and increased energy. Past medical history, appointments, medications, allergies reviewed. 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 Mask (per patient preference) optional chin strap (if indicated) , filters, tubing, humidifier and lifetime supplies. omeprazole (PRILOSEC) 20 mg capsule Take 1 capsule by mouth once daily. fexofenadine (JOHANA ALLERGY) 180 mg tablet Take 1 tablet by mouth once daily. fluticasone (FLONASE ALLERGY RELIEF) 50 mcg/actuation nasal spray Use 1 spray in each nostril once daily. citalopram (CELEXA) 40 mg tablet Take 1 tablet by mouth once daily. levothyroxine (SYNTHROID) 150 mcg tablet Take 1 tablet by mouth once daily. cholecalciferol, vitamin D3, (VITAMIN D3 ORAL) Take 2,000 mcg by mouth once daily. multivit-min/folic/vit K/lycop (MEN'S 50 PLUS MULTIVITAMIN ORAL) Take 1 tablet by mouth once daily. vitamin b complex capsule Take 1 capsule by mouth once daily. No current facility-administered medications on file prior to visit. Social History SOCIAL HISTORY[1] Review of Symptoms REVIEW OF SYSTEMS SEE HPI EXAM: BP 110/66 Pulse (!) 56 Wt 96 kg (211 lb 10.3 oz) BMI 35.22 kg/m? General Appearance: Well appearing, alert, in [...] Medicare Advantage Annual Wellness Visit Never done Colorectal Cancer Screening due on 05/13/2025 Influenza Vaccine(1) due on 03/24/2025 Annual PCP Team Chronic Disease Visit due on 01/28/2026 Diabetes Screening due on 01/18/2028 DTaP,Tdap,Td Vaccine(3 - Td or Tdap) due on 08/28/2028 Lipid Screening due on 09/25/2028 Prostate Cancer Screening Discussion due on 05/03/2029 Hepatitis C Screening Completed ASSESSMENT/PLAN: 1. Obstructive sleep apnea syndrome - ICD9: 327.23, ICD10: G47.33 -Compliant with CPAP use nightly with improved symptoms. Continue CPAP. Ino Esqueda, MORTUARY BEAUTICIAN.PLUG MACHINE OPERATOR [1] Social History Tobacco Use Smoking status: Former [...] 3/4 beers per week Drug use: No Allergies As of Date: 03/18/2025 (No Known Allergies) Date Reviewed: 03/18/2025 Reviewed by: Margarita Ferrara MA - Fully Assessed Reason for Visit: Follow Up [171] Primary Visit Diagnosis:Obstructive sleep apnea syndrome [G47.33] Other Visit Diagnosis:Bilateral impacted cerumen [H61.23] Order(s):carbamide peroxide (DEBROX) 6.5 % otic solutionUse 4-5 drops in both ears every hour as needed for up to 5 doses.Disp: 15 mLRfl: 0 Prescriptions as o (more content not included)... [facility] PATTIENon 03-14-2025 CNPN Telephone (FAMPWS) -- [place] ([id number]) 1965 M Date Time Provider Department 03/14/25 MATHEW COBIAN During your visit today, we recorded the following information about you: Laura Whaley MA 03/14/2025 2:04 PM Signed Office received fax from [employer] stating that they are unable to provide equipment for CPAP because pt is using [employer] for his JODEE supplies. [facility]. Laura Whaley MA Allergies As of Date: 03/14/2025 (No Known Allergies) Date Reviewed: 01/28/2025 Reviewed by: Margarita Ferrara MA - Fully Assessed Reason for Visit: CPAP order [Other] Prescriptions as of 03/14/2025 - CPAP Initiate CPAP @ 7 cm of water with humidification. Mask (per patient preference) optional chin strap (if indicated) , filters, tubing, humidifier and lifetime supplies. - omeprazole (PRILOSEC) 20 mg capsule Take 1 capsule by mouth once daily. - fexofenadine (JOHANA ALLERGY) 180 mg tablet Take 1 tablet by mouth once daily. - fluticasone (FLONASE ALLERGY RELIEF) 50 mcg/actuation nasal spray Use 1 spray in each nostril once daily. - citalopram (CELEXA) 40 mg tablet Take 1 tablet by mouth once daily. - levothyroxine (SYNTHROID) 150 mcg tablet Take 1 tablet by mouth once daily. - cholecalciferol, vitamin D3, (VITAMIN D3 ORAL) Take 2,000 mcg by mouth once daily. - multivit-min/folic/vit K/lycop (MEN'S 50 PLUS MULTIVITAMIN ORAL) Take 1 tablet by mouth once daily. - vitamin b complex capsule Take 1 capsule by mouth once daily. Problem List As Of Date 03/14/2025 Noted Resolved Sleep apnea [G47.30] 09/22/2008 Hypothyroidism [...] 05/12/2024 Encounter Status:Closed by LAURA WHALEY on [facility]14[facility] [place] ([id number]) 1965 M Date Time Provider Department 03/14/25 MATHEW COBIAN COUMJOSSELIN During your visit today, we recorded the following information about you: Hortencia Gonzalez, RN 03/14/2025 3:55 PM Signed Abhinav with [facility] is calling due to they just received a fax for an order for patients cpap and they are noting a pressure change form 8 to 7. They would just like to confirm that you want this change as patient as not aware for this. please review and advise and contact Abhinav back with information. Laura Whaley MA 03/14/2025 4:25 PM Signed Pt should have appt to discuss JODEE. [facility] requesting Office note within the last year discussing use and benefits of PAP machine. No recent visits discussing his sleep apnea. TAWANNA Shelley Mark D, MD 03/14/2025 5:04 PM Signed If he has no recent office visits for JODEE then he needs one to document his use of CPAP MD Judd Jimenez Kathryn, MA 03/14/2025 5:10 PM Signed Pt scheduled with Ino Esqueda 03/18/25. Form placed on TAWANNA's desk. TAWANNA Shelley Krystle, RN 03/19/2025 4:34 PM Signed Abhinav with [facility] calls to verify the setting of CPAP at 7. Faxed OV notes from appt yesterday as requested to [phone], Allergies As of Date: 03/14/2025 (No Known Allergies) Date Reviewed: 01/28/2025 Reviewed by: Margarita Ferrara MA - Fully Assessed Reason for Visit: Patient Question [0177] Prescriptions as of 03/19/2025 - carbamide peroxide (DEBROX) 6.5 % otic solution Use 4-5 drops in both ears every hour as needed for up to 5 doses. - CPAP Initiate CPAP @ 7 cm of water with humidification. Mask (per patient preference) optional chin strap (if indicated) , filters, tubing, humidifier and lifetime supplies. - omeprazole (PRILOSEC) 20 mg capsule Take 1 capsule by mouth once daily. - fexofenadine (JOHANA ALLERGY) 180 mg tablet Take 1 tablet by mouth once daily. - fluticasone (FLONASE ALLERGY RELIEF) 50 mcg/actuation nasal spray Use 1 spray in each nostril once daily. - citalopram (CELEXA) 40 mg tablet Take 1 tablet by mouth once daily. - levothyroxine (SYNTHROID) 150 mcg tablet Take 1 tablet by mouth once daily. - cholecalciferol, vitamin D3, (VITAMIN D3 ORAL) Take 2,000 mcg by mouth once daily. - multivit-min/folic/vit K/lycop (MEN'S 50 PLUS MULTIVITAMIN ORAL) Take 1 tablet by mouth once daily. - vitamin b complex capsule Take 1 capsule by mouth once daily. Problem List As Of Date 03/14/2025 Noted Resolved Sleep apnea [G47.30] 09/22/2008 Hypothyroidism [...] Rectal bleeding [K62.5] 05/12/2024 Encounter Status:Closed by HORTENCIA GONZALEZ on 03/18/25 [facility] (VERNELL[facility] -- [place] ([id number]) 1965 M Date Time Provider Department 01/29/25 INO ESQUEDA During your visit today, we recorded the following information about you: Uma Jett RN 01/29/2025 11:43 AM Signed Patient calls and states that he has had 5 doses of the nystatin. Patient states that thrush is not getting any better. Patient has been taking ibuprofen and tylenol but has been taking more than recommended due to pain. Patient asking what else he can do? Please review and advise, REBA Lawrence Danielle, 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 01/30/2025 6:55 PM Signed Please let patient know it may take longer than 5 doses for symptoms to improve. Renard Lo RN 01/30/2025 7:03 PM Signed Pt called and is notified of providers messge. Pt voices understanding. Renard Lo RN Allergies As of Date: 01/29/2025 (No Known Allergies) Date Reviewed: 01/28/2025 Reviewed by: Margarita Ferrara MA - Fully Assessed Prescriptions as of 01/30/2025 - nystatin (MYCOSTATIN) 100,000 unit/mL suspension Take 5 mL by mouth four times daily for 7 days. Swish and swallow. - fexofenadine (JOHANA ALLERGY) 180 mg tablet Take 1 tablet [...] once daily. Problem List As Of Date 01/29/2025 Noted Resolved Sleep apnea [G47.30] 09/22/2008 Hypothyroidism [...] Rectal bleeding [K62.5] 05/12/2024 Encounter Status:Closed by RENARD LO on 01/30/25 [facility] Emergency Department Summary on 01-29-2025 Emergency Department Summary [facility] Medical Records Department [address] [place] [id number] Emergency Department Summary 01/29/25 MR#: [id number] Acct: [id number] Name: GOOD DE LUNA Rep #: [id number] : 1965 59 From: Jj Koch DO PCP: Dr. Mathew Cobian MD Status:DEP ER Location: ED HPI History of Present Illness Chief Complaint: General Illness Informant: patient Narrative Narrative: Patient is a 59-year-old male with past medical history of cerebral palsy and anxiety. He reports he was recently treated with 2 antibiotics secondary to diverticulitis. He states he then was seen and diagnosed with thrush. He reports he was placed on nystatin. He states that he was informed that after 1 day he should have improvement of his mouth/throat pain. He states he has used the nystatin as directed for the last 1 to 2 days but he does not feel any improvement to his symptoms and therefore he comes in for evaluation. [facility] Medical History Alcohol abuse Anxiety History [...] tab PO DAILY 02/27/22 04/22/24 H istory clindamycin HCl 300 mg capsule 300 mg PO Q6H #40 CAPSULES 5 Unknown Rx (Cleocin HCl) levothyroxine 150 mcg tablet 150 mcg PO DAILY 11/05/24 Unknown History diazepam 5 mg tablet (Valium) 5 mg PO TID PRN Vertigo/dizziness 01/21/25 Unknown Rx 5 days #15 tabs MAGIC MOUTH WASH (BMX) 180 mL 10 ml PO 4X/DAY PRN pain #180 mL 0 01/29/25 Unknown Rx suspension fluconazole 100 mg tablet 100 mg PO BID 7 days #14 tabs 04/17 Unknown Rx (Diflucan) ondansetron 4 mg disintegrating 4 mg PO TID PRN nausea and 5 Unknown Rx tablet vomiting #21 tabs oxycodone-acetaminophen 5 mg-325 1 tab PO Q6H PRN pain 3 days #12 0 01/29/25 Unknown Rx mg tablet (Percocet) tabs Allergy/AdvReac Type Severity Reaction Status Date / Time No Known Allergies Allergy Verified 01/29/25 21:01 Family History Other Cancer Diabetes Surgical History History of tonsillectomy H/O hand surgery Social History household members: other details: Roommate who does not help him cook or clean. Smoking Status: Current every day smoker tobacco type: cigarettes and e-cigarettes alcohol intake: current alcohol intake frequency: 3 or more drinks per day Alcohol type: hard liquor ROS ROS ED Constitutional Constitutional ED: Denies chills or fever(s) ENT ENT ED: Reports ear pain bilateral and sore throat Cardiovascular Cardiovascular: Denies chest pain Respiratory/Chest Respiratory/Chest: Denies cough or dyspnea Gastrointestinal Gastrointestinal: Reports nausea; Denies abdominal pain, diarrhea or vomiting Musculoskeletal Musculoskeletal: Denies myalgias Integumentary Denies rash Neurologic Neurologic: Denies headache(s) Hematologic/Lymphatic Hematologic/Lymphatic: Denies easy bleeding or easy bruising Allergic/Immunologic Allergic/Immunologic ED: Denies mouth swelling or tongue swelling EXAM Physical Exam Const Vital Signs: 01/29/25 21:00 Temperature 98.4 F Temperature Source Oral Pulse Rate 76 Respiratory Rate 16 Blood Pressure 134/82 H Blood Pressure Mean 99 Pulse Ox 97 Oxygen Delivery Method Room Air Positive well nourished and well developed General Appearance ED: well developed; Negative for pallor HEENT HEENT Narrative: No tongue or lip swelling Patient has a white scrappable covering to the tongue consistent with thrush. There are white exudates throughout the buccal mucosa and diffuse erythema in the posterior pharynx consistent with thrush No trismus change in voice or difficulty with secretions. No airway edema or compromise Bilateral TMs are retracted but show no secondary findings to suggest infection Nasal mucosa is hyperemic and boggy Eyes PERRL and EOMs intact bilaterally General Eye ED: Negative for scleral icterus Neck supple Neck Narrative: No subcutaneous emphysema noted Res (more content not included)... 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 Patient presents for sore tongue and throat x4 days. Recently on atb for diverticulitis. Past medical history, appointments, medications, allergies reviewed. 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 Vaps off and on Vaping Use Vaping status: Some Days Substances: Nicotine Substance Use Topics Alcohol use: Yes Comment: 3/4 beers per week Drug use: No Review of Symptoms REVIEW OF SYSTEMS SEE HPI EXAM: BP 113/73 Pulse 65 Wt 99 kg (218 lb 4.1 oz) BMI 36.32 kg/m? General Appearance: Well appearing, alert, in no acute distress, well-hydrated, well nourished. Oropharynx: Positive findings: thrush. Health Maintenance List HIV Screening Never done Hepatitis B Vaccine(1 of 3 - 19+ 3-dose series) Never done Shingrix Vaccine(1 of 2) Never done Pneumococcal Vaccine: 50+(1 of 1 - PCV) Never done Lung Cancer Screening due on 06/08/2022 Medicare Advantage Annual Wellness Visit Never done Influenza Vaccine(1) due on 03/24/2025 Colorectal Cancer Screening due on 05/13/2025 Annual PCP Team Chronic Disease Visit due on 01/17/2026 Diabetes Screening due on 01/18/2028 DTaP,Tdap,Td Vaccine(3 - Td or Tdap) due on 08/28/2028 Lipid Screening due on 09/25/2028 Prostate Cancer Screening Discussion due on 05/03/2029 Hepatitis C Screening Completed Covid-19 Vaccine Completed ASSESSMENT/PLAN: 1. 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 Swish and swallow.Disp: 140 mLRfl: 0 Prescriptions as of 01/28/2025 - nystatin (MYCOSTATIN) 100,000 unit/mL suspension Take 5 mL by mouth four times daily for 7 days. Swish and swallo (more content not included)... [facility] CNOVon 01-27-2025 CNOV Office Visit (WSTR ) -- GOOD DE LUNA ([id number]) 1965 M Date Time Provider Department 01/27/25 9:30 AM MEGA LOJA [facility] During your visit today, we recorded the following information about you: Temperature Pulse Respiration Blood pressure 97.8 degrees 78/minute 18/minute 124/80 Weight 100.9 kg Mega Loja PA-C 01/27/2025 9:38 AM Signed [facility] Subjective Good De Luna is a 59 year old male. Patient presents with: Sore Throat: swollen tongue x 1 day HPI Sore Throat: - Onset yesterday morning. - Associated with a sore tongue and difficulty speaking. - Mild ear discomfort. - Denies cough or emesis. - Taking Claritin and Flonase once daily for allergies. - Recent negative strep test. Diverticulitis: - Recent flare-up last week. Review of Systems Ears/Nose/Mouth/Throat: (+) ear pain, (+) sore tongue, (+) dysphonia Respiratory: (-) cough Gastrointestinal: (-) vomiting Objective BP 124/80 Pulse 78 Temp 36.6 ?C (97.8 ?F) Resp 18 Wt 100.9 kg (222 lb 7.1 oz) SpO2 94% BMI 37.02 kg/m? Physical Exam General: No acute distress. HEENT: Erythematous oropharynx, significant post-nasal drainage. CV: Regular heart rate. Resp: Clear breath sounds bilaterally. Abd: Normoactive bowel sounds. 1. Sore throat (J02.9) - Onset yesterday morning, associated with discomfort and difficulty speaking. - Physical exam reveals erythema in the oropharynx. - Rapid strep test negative. - Advised increasing Flonase to twice daily for 5 days to reduce inflammation and drainage. - Avoid ibuprofen and steroids due to recent diverticulitis flare last week. - Encouraged adequate hydration. 2. Allergic rhinitis, unspecified seasonality, unspecified trigger (J30.9) - Currently managed with Claritin and Flonase. - Advised increasing Flonase to twice daily for 5 days to manage increased drainage. - Discussed minimal side effects of Flonase. - Use Flonase nasal spray twice daily for the next five days to reduce drainage and throat inflammation. - Continue taking Claritin as part of your current allergy regimen. - Avoid ibuprofen and any systemic steroids because of your recent diverticulitis flare. - Drink plenty of fluids to help soothe your throat. - Your paperwork and care plan are [facility] Procedures Allergies As of Date: 01/27/2025 (No Known Allergies) Date Reviewed: 01/27/2025 Reviewed by: Chuyita Loja MA - Fully Assessed Reason for Visit: Sore Throat [200] Cmt: swollen tongue x 1 day Primary Visit Diagnosis:Sore throat [J02.9] Other Visit Diagnosis:Allergic rhinitis, unspecified seasonality, unspecified trigger [J30.9] Order(s):STREP A MOLECULAR (POC) [4541695] Order #: [id number]. #:[id number] Prescriptions as of 01/27/2025 - fexofenadine (JOHANA ALLERGY) 180 mg tablet Take 1 tablet [...] once daily. Problem List As Of Date 01/27/2025 Noted Resolved Sleep apnea [G47.30] 09/22/2008 Hypothyroidism [...] Diverticulitis [K57.92] 04/30/2024 Rectal bleeding [K62.5] 05/12/2024 Level of Service: OFFICE/OUTPATIENT ESTABLISHED MOD MDM 30 MIN [32894] Encounter Status:Closed by MEGA LOJA on 01/27/25 [facility] STREP A MOLECULAR (POC)on Procedural Control Valid [facility] Strep A (POCT) Negative Negative [facility] Basic Metabolic Profile (BMP )on 01-21-2025 BUN/CRE 10.1 RATIO Normal 10-20 [facility] Comment on above: Performed By: #### L 501.5200, L500.2500 ####[facility] [address] [place], [address] Calcium [Mass/Vol] 8.7 mg/dL Normal 7.6-11.0 [facility] Comment on above: Performed By: #### L 501.5200, L500.2500 ####[facility] [address] [place], [address] Chloride [Moles/Vol] 102 mmol/L Normal 98-108 [facility] Comment on above: Performed By: #### L 501.5200, L500.2500 ####[facility] [address] [place], [address] CO2 [Moles/Vol] 23.0 mmol/L Normal 21.0-32.0 [facility] Comment on above: Performed By: #### L 501.5200, L500.2500 ####[facility] [address] [place], [address] Creatinine [Mass/Vol] 0.99 mg/dL Normal 0.70-1.20 [facility] Comment on above: Performed By: #### L 501.5200, L500.2500 ####[facility] [address] [place], [address] ECRCL 90.66 ml/min Normal 50-250 [facility] Comment on above: Performed By: #### L 501.5200, L500.2500 ####[facility] [address] [place], [address] GAP 11 Normal 5-15 [facility] Comment on above: Performed By: #### L 501.5200, L500.2500 ####[facility] [address] [place], [address] GFR/1.73 sq M.predicted among non-blacks MDRD (S/P/Bld) [Vol rate/Area] 89 mL/min/{1.73_m2} Normal >60 [facility] Comment on above: Result Comment: mL/m in/1.73m2 CKD-EPI Creatinine Equation (2020) Performed By: #### L 501.5200, L500.2500 ####[facility] [address] [place], [address] Glucose [Mass/Vol] 90 mg/dL Normal 70-99 [facility] Comment on above: Performed By: #### L 501.5200, L500.2500 ####[facility] [address] [place], [address] Potassium [Moles/Vol] 3.5 mmol/L Normal 3.3-5.1 [facility] Comment on above: Performed By: #### L 501.5200, L500.2500 ####[facility] [address] [place], [address] Sodium [Moles/Vol] 136 mmol/L Normal 133-145 [facility] Comment on above: Performed By: #### L 501.5200, L500.2500 ####[facility] [address] [place], [address] Urea nitrogen [Mass/Vol] 10 mg/dL Normal 4-19 [facility] Comment on above: Performed By: #### L 501.5200, L500.2500 ####[facility] [address] [place], [address] Brain/Head without Contrasto n 01-21-2025 Brain/Head without Contrast [facility] Imaging Services [address] [place] [address] Brain/Head without Contrast MR#: [id number] Acct: [id number] Name: GOOD DE LUNA Rep #: [id number] : 1965 M 59 From: Shubham Nayak MD PCP: Dr. Mathew Cobian MD Status: REG ER Study: Brain/Head without Contrast Date of Exam: 08/17 Exam# [id number] Ordering Dr: Jj Koch DO PROCEDURE: BRAIN/HEAD WITHOUT CONTRAST 01/21/2025 REASON FOR EXAM: DIZZINESS TECHNIQUE: BRAIN/HEAD WITHOUT CONTRAST Coronal and Sagittal reconstruction series were provided. One or more dose reduction techniques were used (e.g., Automated exposure control, adjustment of the mA and/or kV according to patient size, use of iterative reconstruction technique. RADIATION DOSE SUMMARY: CTDlvol: 45 mGy DLP: 847 mGycm COMPARISON: 09/26/2023 FINDINGS: There is a stable hyperdensity, in the right frontal white matter, series 2 image 24, measuring up to 1.2 cm, most likely a vascular anomaly. No acute abnormal brain densities. Mild white matter change. Mild atrophy. No acute abnormal brain densities. No intracranial hemorrhage. No hydrocephalus or midline shift. Bilateral proptosis. No acute scalp or skull pathology. Clear sinuses, mastoid air cells, middle ear cavities. CT/Brain/Head without Contrast IMPRESSION: No acute intracranial findings. Reading Location: [place] [address] CC: Dr. Mathew Cobian MD; Jj Koch DO Gi Asst: Signed [facility] CBC W/Diff, Automatedon Absolute Lymph 1.45 X10 3/uL Normal 0.83-4.51 [facility] Comment on above: Performed By: #### L 100.0100 ####[facility] [address] [place], [address] Absolute Neut 6.5 X10 3/uL Normal 2.0-7.7 [facility] Comment on above: Performed By: #### L 100.0100 ####[facility] [address] [place], [address] Basophils/100 WBC (Bld) 0.2 % Normal 0-1 [facility] Comment on above: Performed By: #### L 100.0100 ####[facility] [address] [place], [address] Eosinophils/100 WBC (Bld) 1.6 % Normal 0-5 [facility] Comment on above: Performed By: #### L 100.0100 ####[facility] [address] [place], [address] Erythrocyte distribution width (RBC) [Ratio] 13.0 % Normal 11.6-14.6 [facility] Comment on above: Performed By: #### L 100.0100 ####[facility] [address] [place], [address] Hematocrit (Bld) [Volume fraction] 39.7 % Low 40-54 [facility] Comment on above: Performed By: #### L 100.0100 ####[facility] [address] [place], [address] Hemoglobin (Bld) [Mass/Vol] 13.2 g/dL Normal 13.0-16.5 [facility] Comment on above: Performed By: #### L 100.0100 ####[facility] [address] [place], [address] IG% 0.600 Normal 0.0-0.9 [facility] Comment on above: Result Comment: IG% - Immature Granulocytes (promyelocytes, myelocytes and metamyelocytes) > 1% indicates that a LEFT SHIFT is Present. Performed By: #### L 100.0100 ####[facility] [address] [place], [address] Lymphocytes/100 WBC (Bld) 16.1 % Low 19-41 [facility] Comment on above: Performed By: #### L 100.0100 ####[facility] [address] [place], [address] MCH (RBC) [Entitic mass] 30.1 pg Normal 27.0-32.0 [facility] Comment on above: Performed By: #### L 100.0100 ####[facility] [address] [place], [address] MCHC (RBC) [Mass/Vol] 33.2 g/dL Normal 32-36 [facility] Comment on above: Performed By: #### L 100.0100 ####[facility] [address] [place], [address] MCV (RBC) [Entitic vol] 90.4 fL Normal 80-94 [facility] Comment on above: Performed By: #### L 100.0100 ####[facility] [address] [place], [address] Monocytes/100 WBC (Bld) 9.6 % Normal 0-10 [facility] Comment on above: Performed By: #### L 100.0100 ####[facility] [address] [place], [address] Neutrophils/100 WBC (Bld) 71.9 % High 47-70 [facility] Comment on above: Performed By: #### L 100.0100 ####[facility] [address] [place], [address] Nucleated RBC (Bld) [#/Vol] 0 10*3/uL Normal 0-5 [facility] Comment on above: Performed By: #### L 100.0100 ####[facility] [address] [place], [address] Platelet mean volume (Bld) [Entitic vol] 12.0 fL Normal 6.2-12.0 [facility] Comment on above: Performed By: #### L 100.0100 ####[facility] [address] [place], [address] Platelets (Bld) [#/Vol] 224 10*3/uL Normal 150-450 [facility] Comment on above: Performed By: #### L 100.0100 ####[facility] [address] [place], [address] RBC (Bld) [#/Vol] 4.39 10*6/uL Low 4.6-6.2 [facility] Comment on above: Performed By: #### L 100.0100 ####[facility] [address] [place], [address] RDW SD 42.8 fl Normal 35.1-43.9 [facility] Comment on above: Performed By: #### L 100.0100 ####[facility] [address] [place], [address] WBC (Bld) [#/Vol] 9.0 10*3/uL Normal 4.4-11.0 [facility] Comment on above: Performed By: #### L 100.0100 ####[facility] [address] [place], [address] Emergency Department Summary on 01-21-2025 Emergency Department Summary [facility] Medical Records Department [address] [place] [address] Emergency Department Summary 01/21/25 MR#: [id number] Acct: [id number] Name: GOOD DE LUNA Rep #: [id number] : 1965 59 From: Jj Koch DO PCP: Dr. Mathew Cobian MD Status:DEP ER Location: ED HPI History of Present Illness Chief Complaint: Dizziness Informant: patient and spouse/S.O. Narrative Narrative: Patient is 59-year-old male with past medical history of cerebral palsy and hypothyroidism. He states that today/this evening he has been having bouts of dizziness that he describes as a combination of motion and lightheadedness. He states the symptoms do seem to worsen with changes in position. He denies any recent bouts of nausea vomiting or diarrhea or head injury. However based on his symptoms there was concern this could be neurologic in nature and therefore he comes in for evaluation [facility] Medical History Alcohol abuse Anxiety History [...] tab PO DAILY 02/27/22 04/22/24 H istory clindamycin HCl 300 mg capsule 300 mg PO Q6H #40 CAPSULES 5 Unknown Rx (Cleocin HCl) levothyroxine 150 mcg tablet 150 mcg PO DAILY 11/05/24 Unknown History diazepam 5 mg tablet (Valium) 5 mg PO TID PRN Vertigo/dizziness 01/21/25 Unknown Rx 5 days #15 tabs Allergy/AdvReac Type Severity Reaction Status Date / Time No Known Allergies Allergy Verified 01/20/25 22:55 Family History Other Cancer Diabetes Surgical History History of tonsillectomy H/O hand surgery Social History household members: other details: Roommate who does not help him cook or clean. Smoking Status: Current every day smoker tobacco type: cigarettes and e-cigarettes alcohol intake: current alcohol intake frequency: 3 or more drinks per day Alcohol type: hard liquor ROS ROS ED Constitutional Constitutional ED: Denies chills or fever(s) Eyes Eyes: Denies blurry vision or change in vision ENT ENT ED: Denies sore throat Cardiovascular Cardiovascular: Denies chest pain, palpitations or racing heartbeat Respiratory/Chest Respiratory/Chest: Denies cough or dyspnea Gastrointestinal Gastrointestinal: Reports nausea; Denies abdominal pain, diarrhea or vomiting Genitourinary Genitourinary ED: Denies dysuria Musculoskeletal Musculoskeletal: Reports back pain and other Details: Patient states that back pain is chronic in nature ; Denies myalgias Integumentary Denies rash Neurologic Neurologic: Reports other Details: Positive dizziness ; Denies headache(s) Hematologic/Lymphatic Hematologic/Lymphatic: Denies easy bleeding or easy bruising EXAM Physical Exam Const Vital Signs: 01/20/25 22:56 01/21/25 00:55 01/21/25 01:11 Temperature 98.7 F Temperature Source Oral Pulse Rate 70 55 L Pulse Rate [Lying] 55 L Pulse Rate [Sitting (for 1 minute prior to obtaining)] 56 L Pulse Rate [Standing (for 1 minute prior to obtaining)] 68 Respiratory Rate 16 16 Blood Pressure 128/75 H 122/73 H Blood Pressure [Lying] 113/77 Blood Pressure [Sitting (for 1 minute prior to obtaining)] 121/72 H Blood Pressure [Standing (for 1 minute prior to obtaining)] 125/81 H Blood Pressure Mean 92 89 Blood Pressure Mean [Lying] 89 Blood Pressure Mean [Sitting (for 1 minute prior to obtaining)] 88 Blood Pressure Mean [Standing (for 1 minute prior to obtaining)] 95 Pulse Ox 96 96 Oxygen Delivery Method Room Air Room Air 01/21/25 02:00 01/21/25 02:33 Temperature 98.1 F Temperature Source Pulse Rate 57 L 59 L Pulse Rate [Lying] Pulse Rate [Sitting (for 1 minute prior to obtaining)] Pulse Rate [Standing (for 1 minute prior to obtaining)] Respiratory Rate 22 H 19 H Blood Pressure 120/74 120/80 Blood Pressure [Lying] Blood Pressure [Sitting (for 1 minute prior to obtaining)] Blood Pressure [Standing (for 1 minute prior to obtaining)] Bloo (more content not included)... Normal [facility] Magnesiumon 01-21-2025 Magnesium [Mass/Vol] 1.8 mg/dL Normal 1.5-2.2 [facility] Comment on above: Performed By: #### L 501.5200, L500.2500 ####[facility] [address] [place], [address] Absolute lymphocyte countOrd ered By: Jj Koch on 01-20-2025 Lymphocytes Auto (Unsp spec) [#/Vol] 1.45 10*3/uL 0.83-4.51 [facility] Absolute neutrophil countOrd ered By: Jj Koch on 01-20-2025 Neutrophils (Bld) [#/Vol] 6.5 10*3/uL 2.0-7.7 [facility] Anion gap in Serum or Plasma Ordered By: Jj Koch on 01-20-2025 Anion gap [Moles/Vol] 11 mmol/L 5-15 [facility] Automated lymphocyte count a s percentage of total leukocytesOrdered By: Jj Koch on 01-20-2025 Lymphocytes/100 WBC Auto (Unsp spec) 16.1 % Low 19-41 [facility] BUN/creatinine ratioOrdered By: Jj Koch on 01-20-2025 Urea nitrogen/Creatinine [Mass ratio] 10.1 mg/mg 10-20 [facility] Basophil percentageOrdered B y: Jj Koch on 01-20-2025 Basophils/100 WBC (Bld) 0.2 % 0-1 [facility] Carbon dioxide, total [Moles /volume] in Central venous bloodOrdered By: Jj Koch on 01-20-2025 CO2 [Moles/Vol] 23.0 mmol/L 21.0-32.0 [facility] Chloride assayOrdered By: Ramona Koch on 01-20-2025 Chloride [Moles/Vol] 102 mmol/L 98-108 [facility] Eosinophil percentageOrdered By: Jj Koch on 01-20-2025 Eosinophils/100 WBC (Bld) 1.6 % 0-5 [facility] Erythrocyte distribution wid th ratioOrdered By: Jj Koch on 01-20-2025 Erythrocyte distribution width (RBC) [Ratio] 13.0 % 11.6-14.6 [facility] Erythrocyte distribution wid th standard deviationOrdered By: Jj Koch on 01-20-2025 Erythrocyte distribution width (RBC) [Ratio] 42.8 fl 35.1-43.9 [facility] Glomerular filtration rate ( GFR) estimation/1.73 sq m using serum, plasma, or whole bOrdered By: Jj Koch on 01-20-2025 GFR/1.73 sq M.predicted among non-blacks MDRD (S/P/Bld) [Vol rate/Area] 89 mL/min/{1.73_m2} >60 [facility] Comment on above: mL/min/1.73m2 CKD-EP I Creatinine Equation (2020) Hematocrit Auto (Bld) [Volum e fraction]Ordered By: Jj Koch on 01-20-2025 Hematocrit (Bld) [Volume fraction] 39.7 % Low 40-54 [facility] Hemoglobin measurementOrdere d By: Jj Koch on 01-20-2025 Hemoglobin (Bld) [Mass/Vol] 13.2 g/dL 13.0-16.5 [facility] Immature granulocytes/100 WB C Auto (Bld)Ordered By: Jj Koch on 01-20-2025 Immature granulocytes/100 WBC (Bld) 0.600 % 0.0-0.9 [facility] Comment on above: IG% - Immature Granu locytes (promyelocytes, myelocytes and metamyelocytes) > 1% indicates that a LEFT SHIFT is Present. MCV (mean corpuscular volume ) determinationOrdered By: Jj Koch on 01-20-2025 MCV (RBC) [Entitic vol] 90.4 fL 80-94 [facility] Magnesium measurement (mass/ volume)Ordered By: Jj Koch 01-20-2025 Magnesium (Unsp spec) [Mass/Vol] 1.8 mg/dL 1.5-2.2 [facility] Mean corpuscular hemoglobin (MCH) determinationOrdered By: Jj Koch 01-20-2025 MCH (RBC) [Entitic mass] 30.1 pg 27.0-32.0 [facility] Mean corpuscular hemoglobin concentration (MCHC) determinationOrdered By: Jj Koch on 01-20-2025 MCHC (RBC) [Mass/Vol] 33.2 g/dL 32-36 [facility] Mean platelet volume determi nationOrdered By: Jj Koch on 01-20-2025 Platelet mean volume (Bld) [Entitic vol] 12.0 fL 6.2-12.0 [facility] Monocyte percentageOrdered B y: Jj Koch on 01-20-2025 Monocytes/100 WBC (Bld) 9.6 % 0-10 [facility] Neutrophil percentageOrdered By: Jj Koch on 01-20-2025 Neutrophils/100 WBC (Bld) 71.9 % High 47-70 [facility] Nucleated red blood cell per centageOrdered By: Jj oKch on 01-20-2025 Nucleated RBC/100 WBC (Bld) [Ratio] 0 % 0-5 [facility] Platelet countOrdered By: Ramona Koch on 01-20-2025 Platelets (Bld) [#/Vol] 224 10*3/uL 150-450 [facility] Potassium measurement (mass/ volume)Ordered By: Jj Koch on 01-20-2025 Potassium (Unsp spec) [Mass/Vol] 3.5 mmol/L 3.3-5.1 [facility] RBC Auto (Bld) [#/Vol]Ordere d By: Jj Koch on 01-20-2025 RBC (Bld) [#/Vol] 4.39 10*6/uL Low 4.6-6.2 [facility] Serum creatinine measurement (mass/volume)Ordered By: Jj Koch on 01-20-2025 Creatinine [Mass/Vol] 0.99 mg/dL 0.70-1.20 [facility] Serum glucose measurement (m ass/volume)Ordered By: Jj Koch on 01-20-2025 Glucose [Mass/Vol] 90 mg/dL 70-99 [facility] Serum or plasma calcium micheal urement (mass/volume)Ordered By: Jj Koch on 01-20-2025 Calcium [Mass/Vol] 8.7 mg/dL 7.6-11.0 [facility] Serum or plasma urea nitroge n measurement (mass/volume)Ordered By: Jj Koch on 01-20-2025 Urea nitrogen [Mass/Vol] 10 mg/dL 4-19 [facility] Sodium levelOrdered By: Castro Koch on 01-20-2025 Sodium [Moles/Vol] 136 mmol/L 133-145 [facility] White blood cell (WBC) count Ordered By: Jj Koch on 01-20-2025 WBC (Bld) [#/Vol] 9.0 10*3/uL 4.4-11.0 [facility] Basic metabolic 2000 panelOr dered By: Sadaf Negrete on 01-17-2025 Anion gap [Moles/Vol] 15 mmol/L 8 - 15 mmol/L [facility] Calcium [Mass/Vol] 9.8 mg/dL 8.5 - 10. 2 mg/dL [facility] Chloride [Moles/Vol] 100 mmol/L 98 - 10 7 mmol/L [facility] CO2 [Moles/Vol] 19 mmol/L Low 22 - 30 mmol/L [facility] Creatinine [Mass/Vol] 0.93 mg/dL 0.73 - 1.22 mg/dL [facility] GFR/1.73 sq M.predicted among non-blacks MDRD (S/P/Bld) [Vol rate/Area] 96 mL/min/{1.73_m2} - PINF [facility] Comment on above: Estimated Glomerular Filtration [...] [Mass/Vol] 85 mg/dL 74 - 99 mg/dL [facility] Comment on above: The [place] Diabete s Association (ADA) provides guidance for [...] Standards of Medical Care in Diabetes 2016, [place] Diabetes Association. Diabetes Care. 2016.39(Suppl 1). Interpretation and review of laboratory results Abnormal [facility] Potassium [Moles/Vol] 4 mmol/L 3.7 - 5.1 mmol/L [facility] Sodium [Moles/Vol] 134 mmol/L Low 136 - 144 mmol/L [facility] Urea nitrogen [Mass/Vol] 23 mg/dL 9 - 24 mg/dL [facility] Basic metabolic 2000 panelon 01-17-2025 Anion gap [Moles/Vol] 15 mmol/L Normal 8-15 [facility] Comment on above: Order Comment: Mejia mckenzie Type: BLOOD SPECIMENOrdering Facility: [facility] Address: [address] [place] [address] Performed By: #### 1 9123-9, 57337-8 ####[facility] MILLWNCLIA [id number] [place] [address] [place]#### 54523-0, 2275- ####[facility] LABCLIA [id number] [place] [address] [place] Calcium [Mass/Vol] 9.8 mg/dL Normal 8.5-10.2 [facility] Comment on above: Order Comment: Mejia mckenzie Type: BLOOD SPECIMENOrdering Facility: [facility] Address: [address] [place] [address] Performed By: #### 1 9123-9, 21294-6 ####[facility] MILLTOWNCLIA [id number] [place] [address] [place]#### 64898-1, 6-4 ####[facility] LABCLIA [id number] [place] [address] [place] Chloride [Moles/Vol] 100 mmol/L Normal 98-107 [facility] Comment on above: Order Comment: Speci men Type: BLOOD SPECIMENOrdering Facility: [facility] Address: [address] [place] [address] Performed By: #### 1 9123-9, 72095-7 ####[facility] TARUN MILLTOWNCLIA [id number] [place] [address] [place]#### 49760-0, 2275-4 ####[facility] LABCLIA [id number] [place] [address] [place] CO2 [Moles/Vol] 19 mmol/L Low 22-30 [facility] Comment on above: Order Comment: Speci men Type: BLOOD SPECIMENOrdering Facility: [facility] Address: [address] [place] [address] Performed By: #### 1 239, 94498-4 ####[facility] MILLTOWNCLIA [id number] [place] [address] [place]#### 17495-5, 2275-4 ####[facility] LABCLIA [id number] [place] [address] [place] Creatinine [Mass/Vol] 0.93 mg/dL Normal 0.73-1.22 [facility] Comment on above: Order Comment: Speci men Type: BLOOD SPECIMENOrdering Facility: [facility] Address: [address] [place] [address] Performed By: #### 1 9123-9, 39746-7 ####[facility] MILLTOWNCLIA [id number] [place] [address] [place]#### 62684-9, 2275-4 ####[facility] LABCLIA [id number] [place] [address] [place] Creatinine and Glomerular filtration rate.predicted panel (S/P/Bld) 96 mL/min/1.73m??? Normal >=60 [facility] Comment on above: Order Comment: Mejia mckenzie Type: BLOOD SPECIMENOrdering Facility: [facility] Address: [address] [place] [address] Result Comment: Heidi mated Glomerular Filtration Rate [...] actual GFR. Performed By: #### 1 9123-9, 15091-2 ####[facility] [id number] [place] [address] [place]#### 51600-7, 2276-4 ####[facility] LABCLIA [id number] [place] [address] [place] Glucose [Mass/Vol] 85 mg/dL Normal 74-99 [facility] Comment on above: Order Comment: Mejia mckenzie Type: BLOOD SPECIMENOrdering Facility: [facility] Address: [address] [place] [address] Result Comment: The [place] Diabetes Association (ADA) provides guidance for cutoff [...] Standards of Medical Care in Diabetes 2016, [place] Diabetes Association. Diabetes Care. 2016.39(Suppl 1). Performed By: #### 1 9123-9, 17109-7 ####[facility] [id number] [place] [address] [place]#### 89306-7, 2275-4 ####[facility] LABCLIA [id number] [address] [address] [place] Potassium [Moles/Vol] 4.0 mmol/L Normal 3.7-5.1 [facility] Comment on above: Order Comment: Speci men Type: BLOOD SPECIMENOrdering Facility: [facility] Address: [address] [place] [address] Performed By: #### 1 9123-9, 26674-7 ####[facility] [id number] [place] [address] [place]#### 81166-9, 2275-10 ####[facility] LABCLIA [id number] [place] [id number] [place] Sodium [Moles/Vol] 134 mmol/L Low 136-144 [facility] Comment on above: Order Comment: Speci men Type: BLOOD SPECIMENOrdering Facility: [facility] Address: [address] [place] [address] Performed By: #### 1 9123-9, ####[facility] [id number] [place] [address] [place]#### 24890-3, 2275-4 ####[facility] LABCLIA [id number] [address] [address] [place] Urea nitrogen [Mass/Vol] 23 mg/dL Normal 9-24 [facility] Comment on above: Order Comment: Speci men Type: BLOOD SPECIMENOrdering Facility: [facility] Address: [address] [place] [address] Performed By: #### 1 9123-9, 19343-7 ####[facility] TARUN [facility] [id number] [place] [id number] [place]#### 95954-5, 2276-4 ####[facility] LABCLIA [id number] [address] [place] CBC W Auto Differential pane l (Bld)on 01-17-2025 Basophils (Bld) [#/Vol] 0.04 10*3/uL [facility] Basophils/100 WBC (Bld) 0.4 % [facility] Differential cell count method Nom (Bld) Auto [facility] Eosinophils (Bld) [#/Vol] 0.11 10*3/uL [facility] Eosinophils/100 WBC (Bld) 1.1 % [facility] Erythrocyte distribution width (RBC) [Ratio] 12.9 % 11.5 - 15.0 % [facility] Hematocrit (Bld) [Volume fraction] 43.9 % 39.0 - 51.0 % [facility] Hemoglobin (Bld) [Mass/Vol] 15.6 g/dL 13.0 - 17.0 g/dL [facility] Immature granulocytes (Bld) [#/Vol] 0.09 10*3/uL [facility] Immature granulocytes/100 WBC (Bld) 0.9 % [facility] Lymphocytes (Bld) [#/Vol] 1.62 10*3/uL [facility] Lymphocytes/100 WBC (Bld) 16.5 % [facility] MCH (RBC) [Entitic mass] 31.4 pg 26.0 - 34.0 pg [facility] MCHC (RBC) [Mass/Vol] 35.5 g/dL 30.5 - 36.0 g/dL [facility] MCV (RBC) [Entitic vol] 88.3 fL 80.0 - 100.0 fL [facility] Monocytes (Bld) [#/Vol] 0.7 10*3/uL [facility] Monocytes/100 WBC (Bld) 7.1 % [facility] Neutrophils (Bld) [#/Vol] 7.25 10*3/uL [facility] Neutrophils/100 WBC (Bld) 74 % [facility] Nucleated RBC (Bld) [#/Vol] NINF [facility] Nucleated RBC/100 WBC (Bld) [Ratio] 0 % /100 WBC [facility] Platelet mean volume (Bld) [Entitic vol] 11.3 fL 9.0 - 12.7 fL [facility] Platelets (Bld) [#/Vol] 251 10*3/uL [facility] RBC (Bld) [#/Vol] 4.97 10*6/uL 4.20 - 6.0 0 m/uL [facility] WBC (Bld) [#/Vol] 9.81 10*3/uL [facility] Basophils (Bld) [#/Vol] 0.04 10*3/uL Normal <0.11 [facility] Comment on above: Order Comment: Speci men Type: BLOOD SPECIMENOrdering Facility: [facility] Address: [address] [place] [address] Performed By: #### 5 7021-8 ####[facility] [id number] [place] [address] [place] Basophils/100 WBC (Bld) 0.4 % Normal [facility] Comment on above: Order Comment: Speci men Type: BLOOD SPECIMENOrdering Facility: [facility] Address: [address] [place] [address] Performed By: #### 5 7021-8 ####[facility] [id number] [place] [address] [place] Differential cell count method Nom (Bld) Auto Normal [facility] Comment on above: Order Comment: Speci men Type: BLOOD SPECIMENOrdering Facility: [facility] Address: [address] [place] [address] Performed By: #### 5 7021-8 ####[facility]ITALLIA [id number] [place] [address] [place] Eosinophils (Bld) [#/Vol] 0.11 10*3/uL Normal <0.46 [facility] Comment on above: Order Comment: Speci men Type: BLOOD SPECIMENOrdering Facility: [facility] Address: [address] [place] [address] Performed By: #### 5 7021-8 ####[facility] HOSPITALWNCLIA [id number] [place] [address] [place] Eosinophils/100 WBC (Bld) 1.1 % Normal [facility] Comment on above: Order Comment: Speci men Type: BLOOD SPECIMENOrdering Facility: [facility] Address: [address] [place] [address] Performed By: #### 5 7021-8 ####[facility] [id number] [place] [address] [place] Erythrocyte distribution width (RBC) [Ratio] 12.9 % Normal 11.5-15.0 [facility] Comment on above: Order Comment: Speci men Type: BLOOD SPECIMENOrdering Facility: [facility] Address: [address] [place] [address] Performed By: #### 5 7021-8 ####[facility] [id number] [place] [address] [place] Hematocrit (Bld) [Volume fraction] 43.9 % Normal 39.0-51.0 [facility] Comment on above: Order Comment: Speci men Type: BLOOD SPECIMENOrdering Facility: [facility] Address: [address] [place] [address] Performed By: #### 5 7021-8 ####[facility] [id number] [place] [address] [place] Hemoglobin (Bld) [Mass/Vol] 15.6 g/dL Normal 13.0-17.0 [facility] Comment on above: Order Comment: Speci men Type: BLOOD SPECIMENOrdering Facility: [facility] Address: [address] [place] [address] Performed By: #### 5 7021-8 ####[facility] JANKISIX MILE RUNFELECIALIA [id number] [place] [address] [place] Immature granulocytes (Bld) [#/Vol] 0.09 10*3/uL Normal <0.10 [facility] Comment on above: Order Comment: Speci men Type: BLOOD SPECIMENOrdering Facility: [facility] Address: [address] [place] [address] Performed By: #### 5 7021-8 ####[facility] [id number] [place] [address] [place] Immature granulocytes/100 WBC (Bld) 0.9 % Normal [facility] Comment on above: Order Comment: Speci men Type: BLOOD SPECIMENOrdering Facility: [facility] Address: [address] [place] [address] Performed By: #### 5 7021-8 ####[facility] [id number] [place] [address] [place] Lymphocytes (Bld) [#/Vol] 1.62 10*3/uL Normal 1.00-4.00 [facility] Comment on above: Order Comment: Speci men Type: BLOOD SPECIMENOrdering Facility: [facility] Address: [address] [place] [address] Performed By: #### 5 7021-8 ####[facility] VENICENCLIA [id number] [place] [address] [place] Lymphocytes/100 WBC (Bld) 16.5 % Normal [facility] Comment on above: Order Comment: Speci men Type: BLOOD SPECIMENOrdering Facility: [facility] Address: [address] [place] [address] Performed By: #### 5 7021-8 ####[facility] HOSPITALWNCROBY [id number] [place] [address] [place] MCH (RBC) [Entitic mass] 31.4 pg Normal 26.0-34.0 [facility] Comment on above: Order Comment: Speci men Type: BLOOD SPECIMENOrdering Facility: [facility] Address: [address] [place] [address] Performed By: #### 5 7021-8 ####[facility] VENICEERIC [id number] [place] [address] [place] MCHC (RBC) [Mass/Vol] 35.5 g/dL Normal 30.5-36.0 [facility] Comment on above: Order Comment: Speci men Type: BLOOD SPECIMENOrdering Facility: [facility] Address: [address] [place] [address] Performed By: #### 5 7021-8 ####[facility] [id number] [place] [address] [place] MCV (RBC) [Entitic vol] 88.3 fL Normal 80.0-100.0 [facility] Comment on above: Order Comment: Speci men Type: BLOOD SPECIMENOrdering Facility: [facility] Address: [address] [place] [address] Performed By: #### 5 7021-8 ####[facility] [id number] [place] [address] [place] Monocytes (Bld) [#/Vol] 0.70 10*3/uL Normal <0.87 [facility] Comment on above: Order Comment: Speci men Type: BLOOD SPECIMENOrdering Facility: [facility] Address: [address] [place] [address] Performed By: #### 5 7021-8 ####[facility] VENICENCLI [id number] [place] [address] [place] Monocytes/100 WBC (Bld) 7.1 % Normal [facility] Comment on above: Order Comment: Speci men Type: BLOOD SPECIMENOrdering Facility: [facility] Address: [address] [place] [address] Performed By: #### 5 7021-8 ####[facility] [id number] [place] [address] [place] Neutrophils (Bld) [#/Vol] 7.25 10*3/uL Normal 1.45-7.50 [facility] Comment on above: Order Comment: Speci men Type: BLOOD SPECIMENOrdering Facility: [facility] Address: [address] [place] [address] Performed By: #### 5 7021-8 ####[facility] [id number] [place] [address] [place] Neutrophils/100 WBC (Bld) 74.0 % Normal [facility] Comment on above: Order Comment: Speci men Type: BLOOD SPECIMENOrdering Facility: [facility] Address: [address] [place] [address] Performed By: #### 5 7021-8 ####[facility] [id number] [place] [address] [place] Nucleated RBC (Bld) [#/Vol] 10*3/uL Normal <0.01 [facility] Comment on above: Order Comment: Speci men Type: BLOOD SPECIMENOrdering Facility: [facility] Address: [address] [place] [address] Performed By: #### 5 7021-8 ####[facility] [id number] [place] [address] [place] Nucleated RBC/100 WBC (Bld) [Ratio] 0.0 /100 WBC Normal [facility] Comment on above: Order Comment: Speci men Type: BLOOD SPECIMENOrdering Facility: [facility] Address: [address] [place] [address] Performed By: #### 5 7021-8 ####[facility] MECCANCROBY [id number] [place] [address] [place] Platelet mean volume (Bld) [Entitic vol] 11.3 fL Normal 9.0-12.7 [facility] Comment on above: Order Comment: Speci men Type: BLOOD SPECIMENOrdering Facility: [facility] Address: [address] [place] [address] Performed By: #### 5 7021-8 ####[facility] JANKISIX MILE RUNNCROBY [id number] [place] [address] [place] Platelets (Bld) [#/Vol] 251 10*3/uL Normal 150-400 [facility] Comment on above: Order Comment: Speci men Type: BLOOD SPECIMENOrdering Facility: [facility] Address: [address] [place] [address] Performed By: #### 5 7021-8 ####[facility] VENICENCLIA [id number] [place] [address] [place] RBC (Bld) [#/Vol] 4.97 10*6/uL Normal 4.20-6.[address] [facility] Comment on above: Order Comment: Speci men Type: BLOOD SPECIMENOrdering Facility: [facility] Address: [address] [place] [address] Performed By: #### 5 7021-8 ####[facility] VENICENCLIA [id number] [place] [address] [place] WBC (Bld) [#/Vol] 9.81 10*3/uL Normal 3.70-11.[address] [facility] Comment on above: Order Comment: Speci men Type: BLOOD SPECIMENOrdering Facility: [facility] Address: [address] [place] [address] Performed By: #### 5 7021-8 ####[facility] TARUN CLOUD [id number] [address] [place] CNOVon 01-17-2025 CNOV Office Visit (FAMPWS ) -- DE LUNAGOOD BATES Chacorta ([id number]) 1965 M Date Time Provider Department 01/17/25 10:20 AM INO ESQUEDA During your visit today, we recorded the following information about you: Pulse Blood pressure 69/minute 117/66 Ino Esqueda 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 01/17/2025 10:41 AM Signed Chief Complaint Patient [...] times a day for 7 days. fexofenadine (JOHANA ALLERGY) 180 mg tablet Take 1 tablet [...] BASIC METABO (more content not included)... Normal [facility] FERRITINon 01-17-2025 Ferritin [Mass/Vol] 363 ng/mL 30.3 - 565.7 ng/mL [facility] Ferritin SerPl-mCncon 2024 Ferritin [Mass/Vol] 363.0 ng/mL Normal 30.3-565.7 [facility] Comment on above: Order Comment: Speci men Type: BLOOD SPECIMENOrdering Facility: [facility] Address: [address] [place] [address] Performed By: #### 1 9123-9, 24629-3 ####[facility] [id number] [place] [id number] [place]#### 15570-0, 2276-4 ####[facility] LABCLIA [id number] [id number], [place] [address] [place] Ferritin [Mass/Vol]on 2024 Interpretation and review of laboratory results Normal [facility] Iron and Iron binding capaci ty panelon 01-17-2025 Interpretation and review of laboratory results Normal [facility] Iron [Mass/Vol] 47 ug/dL 41 - 186 ug/dL [facility] Iron binding capacity [Mass/Vol] 305 ug/dL 232 - 386 ug/dL [facility] Iron/TIBC [Molar ratio] 15.4 % 15.0 - 57.0 % [facility] Iron [Mass/Vol] 47 ug/dL Normal 41-186 [facility] Comment on above: Order Comment: Speci men Type: BLOOD SPECIMENOrdering Facility: [facility] Address: [address] [place] [address] Performed By: #### 1 9123-9, 73486-8 ####[facility] [id number] [place] [address] [place]#### 07194-8, 2276-4 ####[facility] LABCLIA [id number] [place] [address] [place] Iron binding capacity [Mass/Vol] 305 ug/dL Normal 232-386 [facility] Comment on above: Order Comment: Speci men Type: BLOOD SPECIMENOrdering Facility: [facility] Address: [address] [place] [address] Performed By: #### 1 9123-9, 80325-4 ####[facility] VENICENCLIA [id number] [place] [address] [place]#### 10320-0, 2276-4 ####[facility] LABCLIA [id number] [address] [address] [place] Iron/TIBC [Molar ratio] 15.4 % Normal 15.0-57.0 [facility] Comment on above: Order Comment: Speci men Type: BLOOD SPECIMENOrdering Facility: [facility] Address: [address] [place], [place] [address], [place] [address] Performed By: #### 1 9123-9, 43504-1 ####[facility] [id number] [place] [address] [place]#### 65967-5, 2276-4 ####[facility] LABCLIA [id number] [place] [id number] [place] MAGNESIUMon 01-17-2025 Magnesium [Mass/Vol] 1.7 mg/dL 1.7 - 2 .3 mg/dL [facility] Magnesium SerPl-mCncon 01-17 Magnesium [Mass/Vol] 1.7 mg/dL Normal 1.7-2.3 [facility] Comment on above: Order Comment: Speci men Type: BLOOD SPECIMENOrdering Facility: [facility] Address: [address] [place], [place] [address] Performed By: #### 1 9123-9, 87419-0 ####[facility] [id number] [place] [address] [place]#### 48808-2, 2275-4 ####[facility] LABCLIA [id number] [place] [id number] [place] Magnesium [Mass/Vol]on 01-17 Interpretation and review of laboratory results Normal [facility] VITAMIN B1 (THIAMINE), WHOLE BLOODon 01-17-2025 Thiamine (Bld) [Moles/Vol] 181.2 nmol/L Normal 84.3-213.3 [facility] Comment on above: Order Comment: Speci men Type: BLOOD SPECIMENOrdering Facility: [facility] Address: [address] [place] [address] [place] [id number] Result Comment: This assay measures the concentration of thiamine diphosphate (TDP), the primary active form of vitamin B1. Approximately 90 percent of vitamin B1 present in whole blood is TDP. Thiamine and thiamine monophosphate, which comprise the remaining 10 percent, are not measured. This test was developed, and its performance characteristics determined by the [facility] Department of Pathology and Laboratory Medicine. It has not been cleared or approved by the FDA. The [facility] Department of Pathology and Laboratory Medicine is regulated under CLIA as qualified to perform high-complexity testing. This test is used for clinical purposes. It should not be regarded as investigational or for research. Performed By: #### B 1WB ####[facility] LABCLIA [id number] [address] [place] VITAMIN B2/RIBOFLAVon 2024 VITAMIN B2 52 nmol/L High 5-50 [facility] Comment on above: Order Comment: Specvickey mckenzie Type: BLOOD SPECIMENOrdering Facility: [facility] Address: [address] [place] [address] Result Comment: INTE RPRETIVE INFORMATION: Vitamin B2, Plasma This test was developed and its performance characteristics determined by [employer]. It has not been cleared or approved by the US Food and Drug Administration. This test was performed in a CLIA certified laboratory and is intended for clinical purposes. Performed By: [employer] [address] [place] [address] [employer] Instructor: Willie Le MD, PhD [place] Number: [id number] Performed By: #### V ITB2 ####[facility] [id number] [place] [address] VITAMIN B6/PYRIDOXINon 01-17 VITAMIN B6 90.6 nmol/L Normal 20.0-125.0 [facility] Comment on above: Order Comment: Speci magaly Type: BLOOD SPECIMENOrdering Facility: [facility] Address: [address] [place] [address] Result Comment: INTE RPRETIVE INFORMATION: Vitamin B6 (Pyridoxal 5-Phosphate) Pyridoxal 5'-phosphate measured in a specimen collected following an 8-hour or overnight fast accurately indicates vitamin B6 nutritional status. Non-fasting specimen concentration reflects recent vitamin intake. This test was developed and its performance characteristics determined by [employer]. It has not been cleared or approved by the US Food and Drug Administration. This test was performed in a CLIA certified laboratory and is intended for clinical purposes. Performed By: [facility] [address] [id number] [employer] Instructor: Willie Le MD, PhD CLIA Number: [id number] Performed By: #### V ITB6 ####[facility] LABORATORIESCLIA [id number] [place] [id number] Vit B12 Deedeel-Luis 0627-2 025 Cobalamin (Vitamin B12) [Mass/Vol] 568 pg/mL Normal 232-1245 [facility] Comment on above: Order Comment: Speci men Type: BLOOD SPECIMENOrdering Facility: [facility] Address: [address] [place] [address] Performed By: #### 2 132-9 ####[facility] LABCLIA [id number] [address] OF [facility] CNOVon 01-14-2025 [facility] -- [place] ([id number]) 1965 M Date Time Provider Department 01/14/25 10:20 AM IN[facility]A [facility] During your visit today, we recorded the following information about you: Pulse Blood pressure Weight 68/minute 123/71 101 kg Ino Esqueda 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 01/14/2025 10:42 AM Signed Chief Complaint Patient [...] File Prior to Visit Medication Sig fexofenadine (JOHANA ALLERGY) 180 mg tablet Take 1 tablet [...] L91.8 - CONSULT TO DERMATOLOGY Ino Esqueda 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 Allergies As of Date: 01/14/2025 (No Known Allergies) Date Reviewed: 01/14/2025 Reviewed by: Margarita Ferrara MA - Fully Assessed Reason for Visit: Derm Problem [33] Cmt: Skin tags Diverticulitis [271] Primary Vi (more content not included)... [facility] CNPNon 01-10-2025 CNPN Telephone (FAMPWS) -- GOOD DE LUNA ([id number]) 1965 M Date Time Provider Department 01/10/25 MATHEW COBIAN During your visit today, we recorded the following information about you: SuryaAshlyn, RN 01/10/2025 12:40 PM Signed Pt reports he is struggling with allergies. States he was tested and has allergies to everything. Reports no Shortness of Breath, no headache. Has drainage that bothers his ears. No ear pain. Reports the claritin really does not help with his allergies. Asking if pcp can order something different. Teean Mcneil. Mathew Cobian MD 01/10/2025 2:00 PM Signed OK to switch to Johana as ordered MD Judd Jimenez Kathryn, MA 01/10/2025 2:05 PM Signed Pt notified. Laura Whaley MA Allergies As of Date: 01/10/2025 (No Known Allergies) Date Reviewed: 12/13/2024 Reviewed by: Laura Whaley MA - Fully Assessed Reason for Visit: Medication Problem [65] Order(s):fexofenadine (JOHANA ALLERGY) 180 mg tabletTake 1 tablet by mouth once daily.Disp: 30 tabletRfl: 5 Prescriptions as of 01/10/2025 - fexofenadine (JOHANA ALLERGY) 180 mg tablet Take 1 tablet [...] Encounter Status:Closed by LAURA WHALEY on 01/10/25 [facility] Chip 12-25-2024 CNOV Office Visit ([facility] ) -- GOOD DE LUNA ([id number]) 1965 M Date Time Provider Department 12/25/24 1:30 PM GREYSON ELLSWORTH [facility] During your visit today, we recorded the following information about you: Temperature Pulse Respiration Blood pressure 98.4 degrees 67/minute 20/minute 128/70 Weight 99.5 kg Greyson Ellsworth APRN.[facility] 12/25/2024 2:13 PM Signed [facility] [...] Claritin follow up with pcp. Greyson Ellsworth 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 History and Record Review Clinical information obtained from an independent historian. History obtained from or confirmed by: family member. External record(s) reviewed: prior outpatient record. Findings from review of outpatient records: Previous medical history Differential Diagnoses - allergic rhinitis is more likely for the following reason(s): suggested by HANDP - Strep is less likely for the following re (more content not included)... [facility] STREP A MOLECULAR (POC)on Procedural Control Valid [facility] Strep A (POCT) Negative Negative [facility] CNOVon 12-13-2024 CNOV Office Visit (FAMPWS ) -- DE LUNA,GOOD Whatley ([id number]) 1965 M Date Time Provider Department 12/13/24 11:40 AM MATHEW COBIAN During your visit today, we [...] Past Histories independently gathered by the clinical unit support representative and the remaining scribed note accurately describes [...] [B35.1] Order(s):CONSULT TO PODIATRY [9034] Order #: [id number]: 1 FUTURE Prescriptions as of 12/13/2024 - citalopram (CELEXA) 40 mg tablet Take 1 tablet by mouth once daily. - levothyroxine (SYNTHROID) 150 mcg tablet Take 1 tablet by mouth once daily. - omeprazole (PRILO (more content not included)... [facility] DE LUNAGOOD ([id number]) 1965 M Date Time Provider Department 12/10/24 MATHEW COBIAN During your visit today, we [...] Fully Assessed Reason for Visit: Patient Question [3540] Prescriptions as of 12/10/2024 - citalopram (CELEXA) [...] Status:Closed by MICK YOUNGBLOOD on 12/10/24 [facility] Emergency Department Summary on 11-05-2024 Emergency Department Summary [facility] Medical Records Department [address] [place] [address] Emergency Department Summary 11/05/24 MR#: [id number] Acct: [id number] Name: GOOD DE LUNA Rep #: [id number] : 1965 59 From: Salvatore Watkins MD [...] 6 months ago, and everything appeared normal. [facility] Medical History Alcohol abuse Anxiety History [...] Mouth pain (more content not included)... [facility] MRI PROSTATE WO/W IVCONon MRI PROSTATE WO/W IVCON * * *Final Report* * * DATE OF EXAM: Oct 28 2024 11:31AM AKAshlyn 0751 - MRI PROSTATE WO/W IVCON / [...] volume were obtained using a semi-automated software (Clink). CONTRAST: IV: 9 cc of Elucirem. COMPARISON: [...] of suspicion for clinically significant prostate cancer (Dominique score 3 + 4 or higher). PI-RADS v2.1 Assessment Categories: PI-RADS 1: Clinically significant cancer is highly unlikely PI-RADS 2: Clinically significant cancer is unlikely PI-RADS 3: Clinically significant cancer is equivocal PI-RADS 4: Clinically significant cancer is likely PI-RADS 5: Clinically significant cancer is highly likely (.) Gi Asst: MARTIN Transcribe Date/Time: Oct 31 2024 11:00A Dictated by : THOMAS JAMES MD This examination was interpreted and the report reviewed and electronically signed by: THOMAS JAMES MD on Oct 31 2024 11:25AM EST [id number] [facility] Lizzy 09-10-2024 CNPN Telephone (UROLMD) -- GOOD DE LUNA ([id number]) 1965 M Date Time Provider Department 09/10/24 RAPHAEL CALDERON JR UROLMD During your visit today, we recorded the following information about you: Bibi Arnett 09/10/2024 9:43 AM Signed Pt can't make his 11:10 appt today due to loss of transportation, his aide is his daughter and her children are sick. Pt is asking if there is any way he can have a virtual visit due to his immobility and dependence on transport. Thank you. Bibi Arnett 09/10/2024 11:00 AM Signed Nurse Froilan spoke [...] bleeding [K62.5] 05/12/2024 Encounter Status:Closed by BIBI ARNETT on 09/10/24 [facility] CNOVon 08-26-2024 CNOV Office Visit (ORTHWS ) -- GOOD DE LUNA ([id number]) 1965 Ashlyn Date Time Provider Department 08/26/24 10:30 AM TAMMIE WALTERS During your visit today, we recorded the following information about you: BahmanKeisha recio MA 08/26/2024 2:11 PM Signed AMB ROOMING INTAKE FLOWSHEET DATA Pain Pain Level: 4 Pain Location: Leg-Right Description: Aching Duration Amount of Time: (ongoing) Frequency: Continuous Intervention/Comfort measure: Other: See comment (none) Patient here today for 5 weeks 2 days post fracture right fibula. New x-ray today. Tammie Walters PA-C 08/26/2024 2:11 PM Signed Tammie Walters PA-C Department of Orthopaedics Orthopaedics [address] [facility] [address] Dept: [phone] Dept August 26, 2024 CHIEF COMPLAINT: Established [...] as to contrast therapies and/or to take analgesics/anti-inflammato beti as needed and all contraindications were reviewed. [...] allergies. This note was partially generated using [employer] recognition system, and there may be some incorrect words, spellings, and punctuation that were not noted in checking the note before saving. Tammie Walters PA-C Referring Provider: TAMMIE WALTERS [[id number]] Allergies As of Date: 08/26/2024 (No Known Allergies) Date Reviewed: 08/26/2024 Reviewed by: Keisha Ruggiero MA - Fully Assessed Reason for Visit: Established Patient [175] Follow Up [171] Primary Visit Diagnosis:Other closed fracture of proximal end of right fibula with routine healing, subsequent encounter [S87.852Z] Prescriptions as of 08/26/2024 - citalopram (CELEXA) [...] disorder, remission *10/17/2023 Prostate cancer (HCC) [C61] more content not included)... [facility] XR TIBIA FIBULA 2V AP/LAT RT [...] are maintained. IMPRESSION: Healing fibular neck fracture Gi Asst: PSCAntonio Transcribe Date/Time: Aug 28 2024 9:14A Dictated by : WENDI MIRANDA MD This examination was interpreted and the report reviewed and electronically signed by: WENDI MIRANDA MD on Aug 28 2024 9:15AM EST [id number] [facility] XR Tibia and Fibula - right AP and Lateralon 08-01-2024 IMPRESSION: Nondisplaced fracture of the neck of the right fibula Gi Asst: MARTIN Transcribe Date/Time: Aug 01 2024 4:07P Dictated by : SHANELL GORE MD This examination was interpreted and the report reviewed and electronically signed by: SHANELL GORE MD on Aug 01 2024 4:10PM [facility] DIVISION OF RADIOLOGY * * *Final Report* [...] spaces are maintained. DIVISION OF RADIOLOGY Provider, [facility] - 08/01/2024 * * *Final Report* [...] of the neck of the right fibula Gi Asst: PSCB Transcribe Date/Time: Aug 01 2024 4:07P Dictated by : SHANELL GORE MD This examination was interpreted and the report reviewed and electronically signed by: SHANELL GORE MD on Aug 01 2024 4:10PM [facility] XR Tibia and Fibula - right AP and LateralOrdered By: Ccf Provider on 08-01-2024 [facility] CNOVon 07-29-2024 CNOV Office Visit (ORTHWS ) -- GOOD DE LUNA ([id number]) 1965 M Date Time Provider Department 07/29/24 3:30 PM TAMMIE WALTERS During your visit today, we recorded the [...] Intervention/Comfort measure: Other: See comment (none) Tammie Walters PA-C 08/02/2024 8:23 AM Signed Tammie Walters PA-C Department of Orthopaedics Orthopaedics [facility] [address] [facility] [address] Dept: [phone] Dept July 29, 2024 CHIEF COMPLAINT: New [...] mechanism of injury. He was seen at [facility] a few days after the injury, he [...] ankle or right lower extremity injuries. ASSESSMENT: S82.454J Other closed fracture of proximal end of [...] as to contrast therapies and/or to take analgesics/anti-inflammato beti as needed and all contraindications were reviewed. [...] of the neck of the right fibula Gi Asst: MARTIN Transcribe Date/Time: Aug 01 2024 4:07P [...] cm o (more content not included)... [facility] XR TIBIA FIBULA 2V AP/LAT RT [...] of the neck of the right fibula Gi Asst: PSCB Transcribe Date/Time: Aug 01 2024 4:07P Dictated by : SHANELL GORE MD This examination was interpreted and the report reviewed and electronically signed by: SHANELL GORE MD on Aug 01 2024 4:10PM EST [id number] [facility] XR Tibia and Fibula - right AP and Lateralon 07-29-2024 Radiology Study observation (narrative) [facility] CNCOon 07-25-2024 CNCO Letter Text [facility] CNOVon 07-25-2024 CNOV Office Visit (FAMPWS ) -- GOOD DE LUNA ([id number]) 1965 M Date Time Provider Department 07/25/24 10:40 AM MATHEW COBIAN During your visit today, we recorded the following information about you: Pulse Respiration Blood pressure 64/minute 18/minute 132/84 Mathew Cobian MD 07/25/2024 11:12 AM Signed Chief Complaint Patient presents with: Hospital Follow Up HPI Good De Luna is a 59 year old male who presents here today for ER Follow Up.. Pt was in [facility] ER on 07/22/24 for closed fx of [...] fax number to fax letter. Fax number [phone], ATTN: Karie. Case #: [id number]. Notes some sinus drainage and cough, wondering [...] leg. He states that he went to [facility] had an x-ray obtained and was [...] mg table (more content not included)... Normal [facility]-23-2024 [facility]FAM[facility] SurvivalWS[facility] -- GOOD DE [place] ([id number]) 1965 M Date Time Provider Department 07/23/24 MATHEW COBIAN [facility] During your visit today, we recorded the following information about you: Ashlyn Lnodon RN 07/23/2024 12:37 PM Signed Pt scheduled [facility] ER f/u. 07-22-24. Reports has closed fx of fibula proximal right, and instructed to f/u with pcp and also ortho by the end of the week. Transferred to Ortho per pt request. Sofia Chung MA 07/23/2024 12:52 PM Signed Patient transferred. Patient states he was told by [facility] ED he has a fracture and needs to be seen by orthopedics by Monday. Patient unable to stay on hold for scheduling. Please advise TAWANNA Del Rio Amy M, MA 07/23/2024 1:35 PM Signed I called and spoke with the patient. Advised no providers in the [place] office until 07/29/2024. Patient scheduled appointment. Allergies As of Date: 07/23/2024 (No Known Allergies) Date Reviewed: 07/12/2024 Reviewed by: Rola Riojas LPN - Fully Assessed Reason for Visit: [facility] ER f/u [Other] Prescriptions as of 07/23/2024 [...] Status:Closed by Ashlyn LONDON on 07/23/24 [facility] Emergency Department Summary on 07-22-2024 Emergency Department Summary [facility] Medical Records Department [address] [place] [address] Emergency Department Summary 07/22/24 MR#: [id number] Acct: [id number] Name: GOOD DE LUNA Rep #: [id number] : 1965 59 From: Franklyn Donaldson DO PCP: Dr. Mathew Cobian MD Status:REG ER Location: ED HPI History of Present Illness Chief Complaint: Lower Extremity Injury Narrative Narrative: Patient is a 59-year-old male with a past medical history of of cerebral palsy, JODEE on CPAP, anxiety who presents to the [facility] part with chief complaint of right lower extremity pain. Patient states that on Monday he was walking his leg gave out and he had pain in the right side of his leg. He states that he went to [facility] had an x-ray obtained and was told that everything was normal. He states that he is having significant amount of pain still therefore he came here further evaluation management. He states he has been ambulating with a walker at home secondary to the pain. [facility] Medical History Alcohol abuse Anxiety History [...] following commands knew that he was at [facility] years 2023. Sensation grossly intact Skin: [...] to t (more content not included)... [facility] Extremity Lower without Cont raon 07-22-2024 Extremity Lower without Contra [facility] Imaging Services [address] [place], [place] [address] Extremity Lower without Contra MR#: [id number] Acct: [id number] Name: GOOD DE LUNA Rep #: [id number] : 1965 M 59 From: Ang Triana DO PCP: Dr. Mathew Cobian MD Status: REG ER Study: Extremity Lower without Contra Date of Exam: Exam# [id number] Ordering Dr: Franklyn Donaldson DO [id number] CT RIGHT LOWER EXTREMITY WITH 3-D IMAGING [...] 20:07 EST Reading Location ID and State: [facility] [place] Tel [phone], Service support , CC: Dr. Mathew Cobian MD; Dr. Franklyn Donadlson DO Gi Asst: Signed [facility] Tibia Fibula 2 Viewson 07-22 Tibia Fibula 2 Views [facility] Imaging Services [address] [place] [address] Tibia Fibula 2 Views MR#: [id number] Acct: [id number] Name: GOOD DE LUNA Rep #: [id number] : 1965 M 59 From: Ang Triana DO PCP: Dr. Mathew Cobian MD Status: PRE ER Study: Tibia Fibula 2 Views Date of Exam: 07/22/24 Exam# [id number] Ordering Dr: Leatha Arndt [id number] INDICATION: PAIN EXAMINATION/TECHNIQUE: X-RAY - RIGHT XR Tibia/Fibula 2 Views 2 VIEWS COMPARISON: FINDINGS: SOFT TISSUES: No soft tissue swelling or gas. No radiopaque foreign body. BONES/JOINTS: No acute fracture or subluxation.. Normal alignment. Preservation of the joint space.. No sclerotic or destructive changes observed. RAD/Tibia Fibula 2 Views IMPRESSION: Negative. Electronically Signed: Ang Triana DO at 17:51 EST , CC: Dr. Mathew Cobian MD; ED PHYSICIAN PROVIDER Gi Asst: Signed [facility] XR ANKLE AND FOOT 6 VIEWS [facility] 07-20-2024 XR ANKLE AND FOOT 6 VIEWS [...] Mild soft tissue swelling. Interpreted by: Larry Robins MD Preliminary Report By: Larry Robins MD Electronically signed By Larry Robins MD Dictated Date: 07/20/2024 3:54:33 PM Prelim Date: 07/20/2024 3:56:28 PM Sign Date: 07/20/2024 3:56:28 PM Ordering Provider: KAE BARBER [facility] XR TIBIA/FIBULA 2 VIEWS [facility] 07-20-2024 XR TIBIA/FIBULA 2 VIEWS RIGHT ORIGINAL [...] Mild soft tissue swelling. Interpreted by: Larry Robins MD Preliminary Report By: Larry Robins MD Electronically signed By Larry Robins MD Dictated Date: 07/20/2024 3:54:33 PM Prelim Date: 07/20/2024 3:56:28 PM Sign Date: 07/20/2024 3:56:28 PM Ordering Provider: KAE BARBER [facility] Lizzy 07-18-2024 CNPN Telephone (FAMPWS) -- GOOD [place] LUNA ([id number]) 1965 M Date Time Provider Department 07/18/24 [facility]HMADI [facility] During your visit today, we recorded the following information about you: Brian Ahmadi APRN.PATTIE 07/18/2024 9:06 AM Signed Please let the [...] Cook Rilee, MA 07/22/2024 12:56 PM Signed [employer] message sent to pt asking for a return call to office regarding his recent lab results. Pt notified office has attempted to reach him with left. TAWANNA Tierney M Robin, REBA 07/23/2024 12:53 PM Signed Pt phoned in for another reason and given provider's message below with verbalized understanding. Pt agreeable. Allergies As of Date: 07/18/2024 (No Known Allergies) Date Reviewed: 07/12/2024 Reviewed by: Rola Riojas LPN - Fully Assessed Reason for Visit: Results [95] Primary Visit Diagnosis:Hypothyroidism, unspecified type [E03.9] Order(s):THYROID STIMULATING HORMONE [TS] Order #: [id number] FUTURE Prescriptions as of 07/23/2024 - LORazepam [...] Status:Closed by Ashlyn LONDON on 07/23/24 [facility] Basic metabolic 2000 panelon 07-12-2024 Anion gap [Moles/Vol] 14 mmol/L Normal 8-15 [facility] Comment on above: Order Comment: Speci men Type: BLOOD SPECIMENOrdering Facility: [facility] Address: [address] [place] [address] Performed By: #### 2 4321-2, , 3 ####[facility] LAB[facility] [id number] [address] [address] [place] Calcium [Mass/Vol] 9.3 mg/dL Normal 8.5-10.2 [facility] Comment on above: Order Comment: Speci men Type: BLOOD SPECIMENOrdering Facility: [facility] Address: [address] [place] [address] Performed By: #### 2 4321-2, , 3 ####[facility] LAB[facility] [id number] [address] [address] [place] Chloride [Moles/Vol] 104 mmol/L Normal 98-107 [facility] Comment on above: Order Comment: Speci men Type: BLOOD SPECIMENOrdering Facility: [facility] Address: [address] [place] [address] Performed By: #### 2 4321-2, , 3015-3 ####[facility] [id number] [address] [address] [place] CO2 [Moles/Vol] 21 mmol/L Low 22-30 [facility] Comment on above: Order Comment: Speci men Type: BLOOD SPECIMENOrdering Facility: [facility] Address: [address] [place] [address] Performed By: #### 2 4321-2, , 3 ####[facility] LABIA [id number] [address] [address] [place] Creatinine [Mass/Vol] 1.01 mg/dL Normal 0.73-1.22 [facility] Comment on above: Order Comment: Speci men Type: BLOOD SPECIMENOrdering Facility: [facility] Address: [address] [place] [address] Performed By: #### 2 4321-2, , 3015-09 ####[facility] LABIA [id number] [place] [address] [place] Creatinine and Glomerular filtration rate.predicted panel (S/P/Bld) 87 mL/min/1.73m??? Normal >=60 [facility] Comment on above: Order Comment: Mejia men Type: BLOOD SPECIMENOrdering Facility: [facility] Address: [address] [place] [address] Result Comment: Heidi mated Glomerular Filtration Rate [...] reflect actual GFR. Performed By: #### 2 4321-2, , 3 ####[facility] LABIA [id number] [address] [address] [place] Glucose [Mass/Vol] 95 mg/dL Normal 74-99 [facility] Comment on above: Order Comment: Speci men Type: BLOOD SPECIMENOrdering Facility: [facility] Address: [address] [place] [address] Result Comment: The [place] Diabetes Association (ADA) provides guidance for cutoff [...] Standards of Medical Care in Diabetes 2016, [place] Diabetes Association. Diabetes Care. 2016.39(Suppl 1). Performed By: #### 2 4321-2, , 3015-3 ####[facility] [id number] [address] [address] [place] Potassium [Moles/Vol] 4.6 mmol/L Normal 3.7-5.1 [facility] Comment on above: Order Comment: Speci men Type: BLOOD SPECIMENOrdering Facility: [facility] Address: [address] [place] [address] Performed By: #### 2 4320-2, , 3 ####[facility] LABCLIA [id number] [place] [id number] [place] Sodium [Moles/Vol] 139 mmol/L Normal 136-144 [facility] Comment on above: Order Comment: Speci men Type: BLOOD SPECIMENOrdering Facility: [facility] Address: [address] [place], [place] [address] Performed By: #### 2 4321-2, , 3 ####[facility] LAB[facility]IA [id number] [address] [address] [place] Urea nitrogen [Mass/Vol] 15 mg/dL Normal 9-24 [facility] Comment on above: Order Comment: Speci men Type: BLOOD SPECIMENOrdering Facility: [facility] Address: [address] [place], [place] [address] Performed By: #### 2 4321-2, , 3015-3 ####[facility] DANNY [id number] EMELYChelsey [facility] [id number] [place], [place] [address] [place] CNOVon 07-12-2024 CNOV Office Visit (FAMPWS ) -- GOOD DE LUNA ([id number]) 1965 M Date Time Provider Department 07/12/24 11:00 AM BRIAN AHMADI During your visit today, we recorded the following information about you: Pulse Respiration Blood pressure Weight 67/minute 20/minute 140/88 99.8 kg Brian Ahmadi APRN.CNP 07/12/2024 11:06 AM Addendum [facility] sent Get labs to assess TSH Complete [...] labs, EEG to finish workup. Brian Ahmadi 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 RTO in 6 months, sooner if needed. This note was partly generated using [employer] voice recognition dictation and may contain some [...] F17.2 [F17.200] (more content not included)... [facility] Folate [facility] 07-12-20 24 Folate [Mass/Vol] 5.5 ng/mL Normal >4.7 [facility] Comment on above: Order Comment: Speci men Type: BLOOD SPECIMENOrdering Facility: [facility] Address: [address] [place] [address] Performed By: #### 2 132-9, 2284-8 ####[facility] LABCLIA [id number] [place] [address] [place] Magnesium SerPl-mCncon 07-12 Magnesium [Mass/Vol] 1.9 mg/dL Normal 1.7-2.3 [facility] Comment on above: Order Comment: Speci men Type: BLOOD SPECIMENOrdering Facility: [facility] Address: [address] [place] [address] Performed By: #### 2 4321-2, , 3 ####[facility] LABIA [id number] [place] [address] [place] Methylmalonate SerPl-sCncon 07-12-2024 Methylmalonate [Moles/Vol] 0.13 umol/L Normal <=0.40 [facility] Comment on above: Order Comment: Speci [facility] Type: BLOOD SPECIMENOrdering Facility: [facility] Address: [address] [place] [address] Result Comment: This test was developed, and its performance characteristics determined by the [facility] Department of Pathology and Laboratory Medicine. It has not been cleared or approved by the FDA. The [facility] Department of Pathology and Laboratory Medicine is regulated under CLIA as qualified to perform high-complexity testing. This test is used for clinical purposes. It should not be regarded as investigational or for research. Performed By: #### 1 3964-2 ####[facility] LABIA [id number] [place] [address] [place] TSH SerPl-aCncon 07-12-2024 TSH Qn 11.200 m[IU]/L High 0.270-4.200 [facility] Comment on above: Order Comment: Speci men Type: BLOOD SPECIMENOrdering Facility: [facility] Address: [address] [place] [address] Performed By: #### 2 4321-2, 59935-5, 3015-3 ####[facility] LABIA [id number] [place] [address] [place] Vit B12 SerPl-mCncon 024 Cobalamin (Vitamin B12) [Mass/Vol] 409 pg/mL Normal 232-1245 [facility] Comment on above: Order Comment: Speci men Type: BLOOD SPECIMENOrdering Facility: [facility] Address: [address] [place] [address] Performed By: #### 2 132-9, 2284-8 ####[facility] LABCLIA [id number] [facility] [id number] [id number] [place] [facility] CNPNon 06-12-2024 CNPN Telephone (FAMPWS) -- GOOD [place]NA ([id number]) 1965 M Date Time Provider Department 06/12/24 [facility] During your visit today, we recorded [...] that he is going to have daughter order picker form. Uma Jett RN Allergies As [...] Encounter Status:Closed by LAURA WHALEY on 06/13/24 [facility] [place] ([id number]) 1965 M Date Time Provider Department 06/10/24 MATHEW COBIANWS During your visit today, we recorded the following information about you: Laura Whaley MA 06/10/2024 10:10 AM Signed Pt dropped off form from [facility] stating that pt is requesting [...] moving in a week. Patient wants to order picker form when completed please. Meena Garcia LPN 06/18/2024 4:22 PM Signed Patient is calling re: status of form. Needing FRANCIA or will have to pay extra $300 that he does not have. Gypsy Meadows LPN, APRN.CNP 06/27/2024 8:12 AM Signed Form has been completed and ready for order picker. Patient has been notified. Gypsy Ayala APRN.CNP Allergies As of Date: 06/10/2024 (No Known [...] bleeding [K62.5] 05/12/2024 Encounter Status:Closed by GYPSY AYALA on 06/27/24 [facility] 06-07-2024 CNPN Telephone (FAMPWS) -- GOOD [place] ([id number]) 1965 M Date Time Provider Department 06/07/24 SELF FAMPWS During your visit today, we recorded [...] Encounter Status:Closed by DEVI CISSE on 06/09/24 [facility] 06-03-2024 CNPN Telephone (PNMDNA) -- GOOD [place] ([id number]) 1965 M Date Time Provider Department 06/03/24 DEVI CISSE PNODIN During your visit today, we recorded the [...] Encounter Status:Closed by DEVI CISSE on 06/03/24 [facility] CNOVon 05-22-2024 CNOV Office Visit (GENSWS ) -- GOOD DE LUNA ([id number]) 1965 Date Time Provider Department 05/22/24 11:15 AM JENNIFER GALICIA During your visit today, we recorded the following information about you: Pulse Blood pressure 68/minute 111/72 Jennifer Galicia 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 05/22/2024 2:48 PM Signed FOLLOW UP VISIT - ENDOSCOPY Good De Luna 1965 [id number] REFERRING PHYSICIAN: No referring provider defined for this encounter. Good Whatley De Luna is a patient I am [...] cold biopsy forceps. Resected and retrieved. Clip unload associate: [employer]. Clip (MR safe) was placed. - Eight [...] scheduled or as needed for worsening/no improvement. _ Jennifer Galicia 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 Allergies As of Date: 05/22/2024 (No Known [...] [M54.9] 07/ (more content not included)... [facility] CNOVon 05-17-2024 CNOV Office Visit (UCWSTR ) -- GOOD [place] ([id number]) 1965 M Date Time Provider Department 05/17/24 1:00 PM PREMA TURNER During your visit today, we recorded the following information about you: Temperature Pulse Respiration Blood pressure 97.5 degrees 54/minute 20/minute 110/71 Weight 101.8 kg Prema Turner APRN.CNP 05/17/2024 1:10 PM Signed This note was created using NoteWriter. Subjective Good De Luna is a 58 [...] signs of increased swelling, redness, or fever. LUCIAN Willis Tim, APRN.CNP 05/17/2024 12:58 PM Signed You have [...] Date Reviewed: 05/17/2024 Reviewed by: Prema Turner 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 - Fully Assessed Reason for Visit: Trauma [112] Cmt: Fell on tread mill, and hit shins and hav wounds on bilat ankles, x 20 mins Primary Visit Diagnosis:Abrasion of lower leg, unspecified laterality, initial encounter [S80.503Q] Prescriptions as of 05/17/2024 - levothyroxine (SYNTHROID) [...] your famil (more content not included)... [facility] CNPNon 05-16-2024 CNPN Telephone (FAMPWS) -- GOOD [place] ([id number]) 1965 Date Time Provider Department 05/16/24 [facility] During your visit today, we recorded the following information about you: Ashlyn London RN 05/16/2024 2:36 PM Signed Patient asking pcp to write an updated letter, stating he needs an emotional support animal. Reports he is moving and the place he's moving to needs an updated letter. Please send to patient, via [employer]PS. Address verified. Mathew Cobian MD 05/16/2024 4:25 [...] Encounter Status:Closed by LAURA WHALEY on 05/16/24 [facility] ANES POSTPROC EVALon 024 ANES POSTPROC EVAL HNO ID: [id number] Author: SUNDAY HUTTON MD Service: Anesthesiology Author Type: Anesthesiologist Type: Anesthesia Postprocedure Evaluation Filed: 05/13/2024 10:46 Note Text: POST ANESTHESIA EVALUATION NOTE : 1965 Procedure Summary Date: 05/13/24 Room / Location: [facility] Endoscopy Anesthesia Start: 816 Anesthesia Stop: 936 Procedure: COLONOSCOPY DIAGNOSTIC Diagnosis: Diverticulitis Bloody stools (Unexplained GI bleeding Hematochezia) Scheduled Providers: Gilson Bar DO; Yuko Silva APRN.CORPORATION SECRETARY; Sunday Huttno MD Responsible Provider: Sunday Hutton MD Anesthesia [...] May 13, 2024 TIME: 10:46 AM CSN: [id number] [facility] ANES PRE-OPon 05-13-2024 ANES PRE-OP HNO ID: [id number] Author: SUNDAY HUTTON MD Service: Anesthesiology Author Type: Anesthesiologist Type: Anesthesia Preprocedure Evaluation Filed: 05/13/2024 07:51 Note Text: ANESTHESIOLOGY DAY OF SURGERY NOTE : 1965 Procedure Information Date/Time: 05/13/24814 Scheduled providers: Gilson Bar DO; Yuko Silva APRN.CORPORATION SECRETARY; Sunday Hutton MD Procedure: COLONOSCOPY DIAGNOSTIC Location: [facility] Endoscopy Estimated body mass index is [...] and consent discussed: yes. Patient / Responsible Libertarian agrees to proceed: yes Patient / Surrogate agrees to blood products: blood products not planned Significant changes in the patient condition since the History and Physical, not otherwise documented in primary service progress note: no. Vitals Value Taken Time BP 116/63 05/13/24728 Pulse 48 05/13/24728 Resp 16 05/13/24728 Temp 36.7 ?C (98.1 ?F) 05/13/24 07 SpO2 98 % 05/13/24728 Facility-Administered Medications as [...] May 13, 2024 TIME: 7:50 AM CSN: [id number] [facility] CASE MANAGEMon 05-13-2024 CASE MANAGEM HNO ID: [id number] Author: FRANKLYN FREEDMAN RN Service: ? Author Type: Registered Nurse [...] medical necessity for inpatient admission SIGNATURE: Franklyn Freedman RN PATIENT NAME: Good De Luna DATE: [...] the process utilized to ensure compliance with [facility] policy regarding Inpatient Admission and Observation Services. [...] physician's order as documented evidence of concurrence. [facility] CASE MGT [place] 20[facility]: [id number] Author: MENDEZ DEVINE RN Service: ? Author Type: Registered Nurse Type: Care Mgt Initial Assessment Filed: 05/13/2024 11:33 Note Text: CARE MANAGEMENT: ASSESSMENT AND DISCHARGE PLAN SERVICE DATE: May 13, 2024 SERVICE TIME: 11:32 AM PCP: Mathew Cobian MD Primary Contact: Extended Emergency Contact Information Primary Emergency Contact: Calixto [place] Relation: Father Secondary Emergency Contact: Calixto [place] Relation: Child Admission Status: Inpatient Insurance Provider: MEDICARE A AND B Discharge Planning requested by: Per Department Practice Potential Transition Plans Home Advance Directives Current Advance Directive: None Charger Tester Attempted to Assist with AD Completion: Yes Action: Patient Unwilling Current Living Arrangements and Support Lives with: Alone Type of Residence: Private Residence (Apartment or Condo) Does the patient have to climb stairs at home?: Yes;stairs outside the home Support: How do you manage to accomplish the following: Independent: Ambulation;Bathe/Shower;Dr ess;Meals/Meal Prep;Going to the bathroom;Medication Management;Transportation to appointments/community Current Services/Equipment Current Post-Acute Service(s): DME Current DME Type: Walker, Continuous Positive Airway Pressure, Other: See Comment (Walking stick) Discharge Planning Patient Goal(s): General wellness [place] of Choice Explained: [place] of Choice Given: No Reason Not Given: No placements necessary Are you interested in bedside delivery of your medications? Elsy, Keila Rizo in [place] Discharge Planning Participant(s): Patient Patient/Family Comments: Caregiver [...] to complete assessment. Patient from home alone, I-RELIGIOUS LEADER, drives. Daughter to transport. CM assigned will continue to follow for DC planning needs. SIGNATURE: Mendez Devine RN PATIENT NAME: Good De Luna DATE: May 13, 2024 TIME: 11:32 AM CONTACT #: [phone] [facility] CNCOon 05-13-2024 CNCO Letter Text [facility] CNDSon 05-13-2024 CNDS HNO ID: [id number] Author: GILSON BAR DO Service: General Surgery [...] May 13, 2024 TIME: 5:44 PM Normal [facility] Colonoscopyon 05-13-2024 Colonoscopy [facility] Gastrointestinal Endoscopy Patient Name: Good De Luna Procedure Date: 05/13/2024 8:00 AM Date of : 1965 Admit Type: Outpatient Age: 58 Room: [facility] Gender: Male Note Status: Finalized Attending MD: Gilson Bar , , [id number] Procedure: Colonoscopy Indications: Evaluation of unexplained GI [...] physician, the nurse, the anesthesiologist and the element winding machine tender in the pre-procedure area in the endoscopy [...] biopsy, one hemostatic clip was successfully placed ( safe). Clip unload associate: [employer]. There was no bleeding at the end of the procedure. Eight sessile polyps were found in the rectum. The polyps were 1 to 4 mm in size. These polyps were removed with a cold biopsy forceps. Resection and retrieval were complete. Many large-mouthed, medium-mouthed and small-mouthed diverticula (more content not included)... Normal [facility] Flexible sigmoidoscopy study on 05-13-2024 [facility] Gastrointestinal Endoscopy Patient Name: Good De Luna Procedure Date: 05/13/2024 8:00 AM Date of : 1965 Admit Type: Outpatient Age: 58 Room: [facility] Gender: Male Note Status: Finalized Attending MD: Gilson Bar , , [id number] Procedure: Colonoscopy Indications: Evaluation of unexplained GI [...] physician, the nurse, the anesthesiologist and the element winding machine tender in the pre-procedure area in the endoscopy [...] a cold (more content not included)... PROVATION [facility] Radiology Study observation (narrative) [facility] NURSING PROGon 05-13-2024 NURSING PROG HNO ID: [id number] Author: PATRICIA BAI, RN Service: Nursing Author Type: Registered Nurse Type: Nursing Progress Note Filed: 05/13/2024 10:53 Note Text: Other: 1020- made aware of Pt's HR. Orders received. 1040- Dr. Hutton iupdated on patient's HR. 1045- Pt c/o chest heaviness. Dr. Hutton at bedside. No new orders. Per Dr. Hutton patient ok to send to the floor. [facility] SURGICAL PATHOLOGYon CASE REPORT Normal [facility] Comment on above: Order Comment: Speci men Type: TISSUE SPECIMEN [facility] Address: [address] [place] [address] Result Comment: [facility] Pathology Report Case: [id number] Authorizing Provider: Gilson Bar DO Collected: 05/13/2024 08:37 AM Ordering Location: [facility] Endoscopy Received: 05/13/2024 10:19 AM Pathologist: Isidro Zarco MD, PhD Specimens: A) - Colon, Ascending Polyp, Ascending Colon Polyps times 2 B) - Colon, Sigmoid, Polyp, Sigmoid Colon Polyp @ 40cm; Spot Ink above/below C) - Colon, Sigmoid, Polyp, Sigmoid Colon Polyps times 2 D) - Rectum, Polyp, Rectal Polyps times 8 Performed By: #### S #### [facility] CLIA [id number] [address] [place] [address] [place] DIAGNOSIS COMMENT Comment A: The histo logic features in these polyps do not reach our threshold for sessile serrated adenoma/polyp. Nonetheless, given the anatomic location, close colonoscopic follow-up is recommended. [facility] Comment on above: Order Comment: Mejia mckenzie Type: TISSUE SPECIMEN [facility] Address: [address] [place] [address] Performed By: #### S #### [facility] CLIA [id number] [address] [place] [address] [place] FINAL DIAGNOSIS [facility] Comment on above: Order Comment: Mejia mckenzie Type: TISSUE SPECIMEN [facility] Address: [address] [place] [address] Result Comment: A. A scending colon polyps, biopsy: -Tubular adenoma fragments (x4). -Separate fragments of serrated polyp, see comment. B. Sigmoid colon polyp at 40 cm, biopsy: -Hyperplastic polyp. C. Sigmoid colon polyps, biopsy: -Multiple fragments of hyperplastic polyps. D. Rectum polyps, biopsy: -Tubular adenoma fragments (x 2). -Multiple fragments of hyperplastic polyps. Performed By: #### S #### [facility] CLIA [id number] [address] [place] [address] FINAL PERFORMING LAB Normal [facility] Comment on above: Order Comment: Speci men Type: TISSUE SPECIMEN [facility] Address: [address] [place] [address] Result Comment: Diag nostic interpretation performed at [facility], [address] [place] [address] CLIA# [id number] [employer] Instructor: Marek Martines M.D. Performed By: #### S #### [facility] CLIA [id number] [address] [place] [address] GROSS DESCRIPTION Normal [facility] Comment on above: Order Comment: Speci men Type: TISSUE SPECIMEN [facility] Address: [address] [place] [address] Result Comment: A. C olon, Ascending Polyp [...] submitted two cassettes. Gross examination performed at [facility], [address] [place] [address] May 13, 2024 3:41 PM Performed By: #### S #### [facility] CLIA [id number] [address] [place] [address] [place] HISTORY PHYSICALon HISTORY PHYSICAL HNO ID: [id number] Author: GILSON BAR DO Service: General Surgery [...] 12, 2024 Time: 5:55 PM [facility] 05-08-2024 [facility] Office Visit (SWS ) -- GOOD [place] ([id number]) 1965 M Date Time Provider Department 05/08/24 [...] Resolved Resolved By Diverticulitis 04/30/2024 Brian Ahmadi, KALEB.PLUG MACHINE OPERATOR No Recurrent major depressive disorder, remission status unspecified ([facility]) 10/17/2023 Mathew Cobian MD No Prostate cancer ([facility]) 10/17/2023 E (more content not included)... [facility] HISTORY PHYSICALon HISTORY PHYSICAL HNO ID: [id number] Author: GILSON BAR, DO Service: ? Author [...] Resolved Resolved By Diverticulitis 04/30/2024 Brian Ahmadi, MORTUARY BEAUTICIAN.PLUG MACHINE OPERATOR No Recurrent major depressive disorder, remission status unspecified ([facility]) 10/17/2023 Mathew Cobian MD No Prostate cancer (HCC) 10/17/2023 Mathew Cobian MD No Congenital diplegia (HCC) 05/27/2021 BeRochelle dubois, PT, DPT No Spasticity 05/27/2021 Rochelle Cornelius, PT, DPT No Costochondritis 05/27/2021 Rochelle Cornelius, PT, DPT No Localized osteoporosis ([place]) 05/27/2021 Rochelle Cornelius PT, DPT No Cerebral palsy (HCC) Mathew Cobian MD No Nicotine use disorder, F17.2 02/11/2019 Zabrina Cevallos, DO No Back pain 02/10/2019 Zabrina Cevallos, DO No Chronic bilateral low back pain with right-sided sciatica 01/10/2018 Ray Giraldo PA-C No Spinal stenosis of lumbar region 12/12/2017 Brian Ahmadi 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 No Overview Signed 12/12/2017 7:47 AM by Brian Ahmadi (Equipment Operator [employer]) MRI 11/2017 [facility] Thoracic or lumbosacral neuritis or radiculitis, unspecified 04/25/2014 Chuyita Boyer, PT No Bilateral hip pain 04/17/2009 O Memo Xiomy (Pt)(Hist) No SI (sacroiliac) joint dysfunction 04/17/2009 O Memo Xiomy (Pt)(Hist) No Hypothyroidism 03/27/2009 Mathew Cobian [...] tab(s) (PROTONIX) 20 mg ORAL DAILY Angelika Martines MD [START ON 05/13/2024] citalopram 40 mg tab(s) (CeleXA) 40 mg ORAL DAILY Angelika Martines MD [START ON 05/13/2024] levothyroxine 150 mcg (SYNTHROID) 150 mcg ORAL DAILY Angelika Martines MD cholecalciferol 1,000 Units tab(s) (VITAMIN D3) 1,000 Units ORAL DAILY Angelika Martines MD multivitamin-ferrous fumarate-folic acid 1 tablet (CENTRUM) 1 tablet ORAL DAILY Angelika Martines MD CURRENT ALLERGIES ALLERGIES No Known Allergies [...] Anorectal: D (more content not included)... [facility] CNOVon 05-03-2024 CNOV Office Visit (FAMPWS ) -- GOOD [place] ([id number]) 1965 M Date Time Provider Department 05/03/24 10:40 AM [facility] During your visit today, we recorded the following information about you: Temperature Pulse Respiration Blood pressure 97.7 degrees 79/minute 20/minute 120/80 Weight 100.7 kg Brian Ahmadi APRN.[facility] 05/03/2024 10:46 AM Signed Chief Complaint Patient [...] Continue to see general surgery. Brian Ahmadi 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 RTO if symptoms return. This note was partly generated using [employer] voice recognition dictation and may contain some [...] Service: OFFICE/OUTPATIENT ESTABLISHED LOW MDM 20 MIN [84920] Additional E/M codes: VISIT CPLX INHERENT EANDM ASSOC WITH MED * Letter Text Encounter Status:Closed by ERIC AHMADI (more content not included)... [facility] PSA SerPl-mCncon 10-11-2024 Prostate specific Ag [Mass/Vol] 1.21 ng/mL Normal <2.60 [facility] Comment on above: Order Comment: Speci men Type: BLOOD SPECIMENOrdering Facility: [facility] Address: [address] [place] [address] Result Comment: Tota l PSA test methodology used is the Electrochemiluminescence Immunoassay by [employer]. Total PSA values by differing methodologies cannot be interchanged. Performed By: #### 2 857-1 ####[facility]IA [id number] [facility] [id number] OF [facility] CNOVon 04-30-2024 CNOV Office Visit (FAMWS ) -- GOOD [place] ([id number]) 1965 M Date Time Provider Department 04/30/24 1:20 PM BRIAN AHMADI During your visit today, we recorded the following information about you: Temperature Pulse Respiration Blood pressure 97.7 degrees 64/minute 16/minute 114/76 Weight 103 kg Brian Ahmadi 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 04/30/2024 2:12 PM Signed Chief Complaint Patient presents with: ER F/U: [facility] ER diverticulitis 04/23/2024 [facility] Good Herringson is a 58 year old male who presents here today for Hospital Discharge Follow up. follow up for diverticulitis. Patient presenting for emergency room follow-up. Patient went to [facility] on April 23 for complaints of [...] was originally referred to Dr. Wood at [facility] but has not made an appointment. [...] 562.11, ICD10: K57.92 (primary diagnosis) -Diagnosed in [facility]. Last day of Augmentin. Not responding [...] immunization - ICD9: V03.89, ICD10: Z23 - Code for [facility] COVID-19 VACCINE AGE 12+ YR (COMIRNATY) Brian Ahmadi 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 RTO in 3 days I spent a total of 31 minutes on the date of the service which included preparing to see the patient, ewls-eg-vsdo patient care, completing clinical documentation, obtaining and/or reviewing separately obtained history, performing a medically appropriate examination, counseling and educating the patient/family/caregiver, and ordering medications, tests, or procedures. This note was partly generated using [employer] voice recognition dictation and may contain some misspelled or inaccurate words missed on review. Allergies As of Date: 04/30/2024 (No Known Allergies) Date Reviewed: 04/30/2024 Reviewed by: Rola Riojas LPN - Fully Assessed Reason for Visit: ER F/U [41] Cmt: [facility] ER diverticulitis 04/23/2024 Primary Visit Diagnosis:Diverticulitis [K57.92] Other Visit Diagnoses:Bloody stools [K92.1] Encounter for immunization [Z23] Order(s):CORD:USE [facility] COVID-19 VACCINE AGE 12+ YR (COMIRNATY) [94802HQF] Order #: [id number] cefdinir (OMNICEF) 300 mg capsuleTake 1 capsule by mouth two times a day for 7 days.Disp: 14 capsuleRfl: 0 metroNIDAZOLE (FLAGYL) 500 mg tabletTake 1 tablet by mouth every 8 hours for 7 days.Disp: 21 tabletRfl: 0 CONSULT TO GENERAL SURGERY [9011] Order #: [id number]: 1 FUTURE Prescriptions as of 04/30/2024 - [...] patient preference (more content not included)... [facility] CNCOon 04-24-2024 CNCO Letter Text Normal [facility] 12 Lead EKGon 04-23-2024 12 Lead EKG [facility] Services [address] [place] [address] 12 Lead EKG 04/23/24 1556 MR#: [id number] Acct: [id number] Name: GOOD DE LUNA Rep #: [id number] : 1965 58 From: Erick Sigala MD [...] consider anterior ischemia Abnormal ECG Confirmed by CHRIS AREVALO, ERICK ([id number]), newspaper editor managing RENARD WILSON ([id number]) on 04/25/2024 1:20:26 PM Referred By: Confirmed By:ERICK SIGALA MD 04/25/24 1320 Date Erick Sigala MD CC: Dr. Mathew Cobian MD; Dr. Franklyn Donaldson DO Signed Normal [facility] CBC W/Diff, Automatedon 10-0 Absolute Neut Normal 2.0-7.7 [facility] Comment on above: Result Comment: Josh cade via OM: Ordered Performed By: #### L 100.0100 #### [facility] [address] [place], [address] HCT Normal 40-54 [facility] Comment on above: Result Comment: Josh cade via OM: Ordered Performed By: #### L 100.0100 #### [facility] [address] [place], [address] HGB Normal 13.0-16.5 [facility] Comment on above: Result Comment: Canc elled via OM: MD Ordered Performed By: #### L 100.0100 #### [facility] [address] [place], [address] MCH Normal 27.0-32.0 [facility] Comment on above: Result Comment: Canc elled via OM: MD Ordered Performed By: #### L 100.0100 #### [facility] [address] [place], [address] MCHC Normal 32-36 [facility] Comment on above: Result Comment: Canc elled via OM: MD Ordered Performed By: #### L 100.0100 #### [facility] [address] [place], [address] MCV Normal 80-94 [facility] Comment on above: Result Comment: Canc elled via OM: MD Ordered Performed By: #### L 100.0100 #### [facility] [address] [place], [address] NEUT% Normal 47-70 [facility] Comment on above: Result Comment: Canc elled via OM: MD Ordered Performed By: #### L 100.0100 #### [facility] [address] [place], [address] PLT Normal 150-450 [facility] Comment on above: Result Comment: Canc elled via OM: MD Ordered Performed By: #### L 100.0100 #### [facility] [address] [place], [address] RBC Normal 4.6-6.2 [facility] Comment on above: Result Comment: Canc elled via OM: MD Ordered Performed By: #### L 100.0100 #### [facility] [address] [place], [address] RDW CV Normal 11.6-14.6 [facility] Comment on above: Result Comment: Canc elled via OM: MD Ordered Performed By: #### L 100.0100 #### [facility] [address] [place], [address] RDW SD Normal 35.1-43.9 [facility] Comment on above: Result Comment: Canc elled via OM: MD Ordered Performed By: #### L 100.0100 #### [facility] [address] [place], [address] WBC Normal 4.4-11.0 [facility] Comment on above: Result Comment: Canc elled via OM: MD Ordered Performed By: #### L 100.0100 #### [facility] [address] [place], [address] Absolute Lymph 2.33 X10 3/uL Normal 0.83-4.51 [facility] Comment on above: Performed By: #### B TS, L500.4050, L501.2450, L100.0100, L501.4020 #### [facility] [address] [place], [address] Absolute Neut 6.6 X10 3/uL Normal 2.0-7.7 [facility] Comment on above: Performed By: #### B TS, L500.4050, L501.2450, L100.0100, L501.4020 #### [facility] [address] [place], [address] Basophils/100 WBC (Bld) 0.3 % Normal 0-1 [facility] Comment on above: Performed By: #### B TS, L500.4050, L501.2450, L100.0100, L501.4020 #### [facility] [address] [place], [address] Eosinophils/100 WBC (Bld) 1.2 % Normal 0-5 [facility] Comment on above: Performed By: #### B TS, L500.4050, L501.2450, L100.0100, L501.4020 #### [facility] [address] [place], [address] Erythrocyte distribution width (RBC) [Ratio] 12.5 % Normal 11.6-14.6 [facility] Comment on above: Performed By: #### B TS, L500.4050, L501.2450, L100.0100, L501.4020 #### [facility] [address] [place], [address] Hematocrit (Bld) [Volume fraction] 42.2 % Normal 40-54 [facility] Comment on above: Performed By: #### B TS, L500.4050, L501.2450, L100.0100, L501.4020 #### [facility] [address] [place], [address] Hemoglobin (Bld) [Mass/Vol] 13.7 g/dL Normal 13.0-16.5 [facility] Comment on above: Performed By: #### B TS, L500.4050, L501.2450, L100.0100, L501.4020 #### [facility] [address] [place], [address] IG% 0.700 Normal 0.0-0.9 [facility] Comment on above: Result Comment: IG% - Immature Granulocytes (promyelocytes, myelocytes and metamyelocytes) > 1% indicates that a LEFT SHIFT is Present. Performed By: #### B TS, L500.4050, L501.2450, L100.0100, L501.4020 #### [facility] [address] [place], [address] Lymphocytes/100 WBC (Bld) 23.3 % Normal 19-41 [facility] Comment on above: Performed By: #### B TS, L500.4050, L501.2450, L100.0100, L501.4020 #### [facility] [address] [place], [address] MCH (RBC) [Entitic mass] 29.4 pg Normal 27.0-32.0 [facility] Comment on above: Performed By: #### B TS, L500.4050, L501.2450, L100.0100, L501.4020 #### [facility] [address] [place], [address] MCHC (RBC) [Mass/Vol] 32.5 g/dL Normal 32-36 [facility] Comment on above: Performed By: #### B TS, L500.4050, L501.2450, L100.0100, L501.4020 #### [facility] [address] [place], [address] MCV (RBC) [Entitic vol] 90.6 fL Normal 80-94 [facility] Comment on above: Performed By: #### B TS, L500.4050, L501.2450, L100.0100, L501.4020 #### [facility] [address] [place], [address] Monocytes/100 WBC (Bld) 8.4 % Normal 0-10 [facility] Comment on above: Performed By: #### B TS, L500.4050, L501.2450, L100.0100, L501.4020 #### [facility] [address] [place], [address] Neutrophils/100 WBC (Bld) 66.1 % Normal 47-70 [facility] Comment on above: Performed By: #### B TS, L500.4050, L501.2450, L100.0100, L501.4020 #### [facility] [address] [place], [address] Nucleated RBC (Bld) [#/Vol] 0 10*3/uL Normal 0-5 [facility] Comment on above: Performed By: #### B TS, L500.4050, L501.2450, L100.0100, L501.4020 #### [facility] [address] [place], [address] Platelet mean volume (Bld) [Entitic vol] 11.4 fL Normal 6.2-12.0 [facility] Comment on above: Performed By: #### B TS, L500.4050, L501.2450, L100.0100, L501.4020 #### [facility] [address] [place], [address] Platelets (Bld) [#/Vol] 244 10*3/uL Normal 150-450 [facility] Comment on above: Performed By: #### B TS, L500.4050, L501.2450, L100.0100, L501.4020 #### [facility] [address] [place], [address] RBC (Bld) [#/Vol] 4.66 10*6/uL Normal 4.6-6.2 [facility] Comment on above: Performed By: #### B TS, L500.4050, L501.2450, L100.0100, L501.4020 #### [facility] [address] [place], [address] RDW SD 40.8 fl Normal 35.1-43.9 [facility] Comment on above: Performed By: #### B TS, L500.4050, L501.2450, L100.0100, L501.4020 #### [facility] [address] [place], [address] WBC (Bld) [#/Vol] 10.0 10*3/uL Normal 4.4-11.0 [facility] Comment on above: Performed By: #### B TS, L500.4050, L501.2450, L100.0100, L501.4020 #### [facility] [address] [place], [place], [address] CTA Abd/Pelvis W/WO Contrast on 04-23-2024 CTA Abd/Pelvis W/WO Contrast [facility] Imaging Services [address] [place] [address] CTA Abd/Pelvis W/WO Contrast MR#: [id number] Acct: [id number] Name: GOOD DE LUNA Rep #: [id number] : 1965 M 58 From: Ronald Hood MD PCP: Dr. Mathew Cobian MD Status: REG ER Study: CTA Abd/Pelvis W/WO Contrast Date of Exam: 08/16 Exam# [id number] Ordering Dr: Franklyn Donaldson DO [id number] INDICATION: abd pain, bloody bowel movements X2 [...] Mathew Cobian MD; Dr. Franklyn Donaldson DO Gi Asst: Signed Normal [facility] Comprehensive Metabolic Prof ilon 04-23-2024 Albumin [Mass/Vol] 3.6 g/dL Normal 3.2-5.0 [facility] Comment on above: Order Comment: 'TROP ' Serial specimen #1, #2 or #3: 1 Performed By: #### B TS, L500.4050, L501.2450, L100.0100, L501.4020 #### [facility] [address] [place], [address] Albumin/Globulin [Mass ratio] 0.9 {ratio} Normal 0.9-2.4 [facility] Comment on above: Order Comment: 'TROP ' Serial specimen #1, #2 or #3: 1 Performed By: #### B TS, L500.4050, L501.2450, L100.0100, L501.4020 #### [facility] [address] [place], [address] ALK P 92 U/L Normal 45-117 [facility] Comment on above: Order Comment: 'TROP ' Serial specimen #1, #2 or #3: 1 Performed By: #### B TS, L500.4050, L501.2450, L100.0100, L501.4020 #### [facility] [address] [place], [address] ALT [Catalytic activity/Vol] 31 U/L Normal 16-61 [facility] Comment on above: Order Comment: 'TROP ' Serial specimen #1, #2 or #3: 1 Performed By: #### B TS, L500.4050, L501.2450, L100.0100, L501.4020 #### [facility] [address] [place], [address] AST [Catalytic activity/Vol] 15 U/L Normal 15-37 [facility] Comment on above: Order Comment: 'TROP ' Serial specimen #1, #2 or #3: 1 Performed By: #### B TS, L500.4050, L501.2450, L100.0100, L501.4020 #### [facility] [address] [place], [address] Bilirubin [Mass/Vol] 0.30 mg/dL Normal 0.20-1.00 [facility] Comment on above: Order Comment: 'TROP ' Serial specimen #1, #2 or #3: 1 Result Comment: For patients on eltrombopag therapy, use of Dimension Scarbro TBIL is not recommended. Performed By: #### B TS, L500.4050, L501.2450, L100.0100, L501.4020 #### [facility] [address] [place], [address] BUN/CRE 17.2 RATIO Normal 10-20 [facility] Comment on above: Order Comment: 'TROP ' Serial specimen #1, #2 or #3: 1 Performed By: #### B TS, L500.4050, L501.2450, L100.0100, L501.4020 #### [facility] [address] [place], [address] CA,Total 9.2 mg/dL Normal 8.5-10.1 [facility] Comment on above: Order Comment: 'TROP ' Serial specimen #1, #2 or #3: 1 Performed By: #### B TS, L500.4050, L501.2450, L100.0100, L501.4020 #### [facility] [address] [place], [address] Chloride [Moles/Vol] 107 mmol/L Normal 98-107 [facility] Comment on above: Order Comment: 'TROP ' Serial specimen #1, #2 or #3: 1 Performed By: #### B TS, L500.4050, L501.2450, L100.0100, L501.4020 #### [facility] [address] [place], [address] CO2 [Moles/Vol] 25.0 mmol/L Normal 21.0-32.0 [facility] Comment on above: Order Comment: 'TROP ' Serial specimen #1, #2 or #3: 1 Performed By: #### B TS, L500.4050, L501.2450, L100.0100, L501.4020 #### [facility] [address] [place], [address] Creatinine [Mass/Vol] 1.16 mg/dL Normal 0.70-1.30 [facility] Comment on above: Order Comment: 'TROP ' Serial specimen #1, #2 or #3: 1 Result Comment: The validity of the calculated GFR GFRAA in patients over 70 years has not been determined. Clinical correlation is essential. Performed By: #### B TS, L500.4050, L501.2450, L100.0100, L501.4020 #### [facility] [address] [place], [address] ECRCL 78.99 ml/min Normal [facility] Comment on above: Order Comment: 'TROP ' Serial specimen #1, #2 or #3: 1 Performed By: #### B TS, L500.4050, L501.2450, L100.0100, L501.4020 #### [facility] [address] [place], [address] EST GFR - AA 84 mL/min Normal >60 [facility] Comment on above: Order Comment: 'TROP ' Serial specimen #1, #2 or #3: 1 Result Comment: Afri can Finnish GFR Calc Performed By: #### B TS, L500.4050, L501.2450, L100.0100, L501.4020 #### [facility] [address] [place], [address] GAP 6 Normal 5-15 [facility] Comment on above: Order Comment: 'TROP ' Serial specimen #1, #2 or #3: 1 Performed By: #### B TS, L500.4050, L501.2450, L100.0100, L501.4020 #### [facility] [address] [place], [address] GFR/1.73 sq M.predicted among non-blacks MDRD (S/P/Bld) [Vol rate/Area] 69 mL/min/{1.73_m2} Normal >60 [facility] Comment on above: Order Comment: 'TROP ' Serial specimen #1, #2 or #3: 1 Result Comment: Non- GFR Calc Performed By: #### B TS, L500.4050, L501.2450, L100.0100, L501.4020 #### [facility] [address] [place], [address] Globulin (S) [Mass/Vol] 4.0 g/dL Normal 2.2-4.2 [facility] Comment on above: Order Comment: 'TROP ' Serial specimen #1, #2 or #3: 1 Performed By: #### B TS, L500.4050, L501.2450, L100.0100, L501.4020 #### [facility] [address] [place], [address] Glucose [Mass/Vol] 96 mg/dL Normal 74-106 [facility] Comment on above: Order Comment: 'TROP ' Serial specimen #1, #2 or #3: 1 Performed By: #### B TS, L500.4050, L501.2450, L100.0100, L501.4020 #### [facility] [address] [place], [address] Potassium [Moles/Vol] 4.0 mmol/L Normal 3.5-5.1 [facility] Comment on above: Order Comment: 'TROP ' Serial specimen #1, #2 or #3: 1 Performed By: #### B TS, L500.4050, L501.2450, L100.0100, L501.4020 #### [facility] [address] [place], [address] Sodium [Moles/Vol] 138 mmol/L Normal 136-145 [facility] Comment on above: Order Comment: 'TROP ' Serial specimen #1, #2 or #3: 1 Performed By: #### B TS, L500.4050, L501.2450, L100.0100, L501.4020 #### [facility] [address] [place], [address] T PROT 7.6 g/dL Normal 6.4-8.2 [facility] Comment on above: Order Comment: 'TROP ' Serial specimen #1, #2 or #3: 1 Performed By: #### B TS, L500.4050, L501.2450, L100.0100, L501.4020 #### [facility] [address] [place], [address] Urea nitrogen [Mass/Vol] 20 mg/dL High 7-18 [facility] Comment on above: Order Comment: 'TROP ' Serial specimen #1, #2 or #3: 1 Performed By: #### B TS, L500.4050, L501.2450, L100.0100, L501.4020 #### [facility] [address] [place], [address] Emergency Department Summary on 04-23-2024 Emergency Department Summary [facility] Medical Records Department [address] [place] [address] Emergency Department Summary 04/23/24 MR#: [id number] Acct: [id number] Name: GOOD DE LUNA Rep #: [id number] : 1965 58 From: Franklyn Donaldson DO [...] otherwise feels well denies any sick contacts. [facility] Medical History Alcohol abuse Anxiety History [...] follow commands knew that he was at [facility] years 2023 Skin: Warm, dry, intact [...] evidence leukocy (more content not included)... Normal [facility] L501.4020on 04-23-2024 TROPONIN-I HS 6 pg/mL Normal 3.0-78.0 [facility] Comment on above: Order Comment: 'TROP ' Serial specimen #1, #2 or #3: 1 Result Comment: Ricki summers Note: New Test Units and Gender Specific Reference Ranges. For more information see Policy Stat Procedure Scarbro High Sensitivity Troponin (TNIH) and attachments. Performed By: #### B TS, L500.4050, L501.2450, L100.0100, L501.4020 #### [facility] [address] [place], [address] Lactic Acidon 04-23-2024 Lactate [Moles/Vol] 1.0 mmol/L Normal 0.4-1.9 [facility] Comment on above: Order Comment: Y Performed By: #### L 503.6005 #### [facility] [address] [place], [address] Lipaseon 04-23-2024 Lipase [Catalytic activity/Vol] 32 U/L Normal 13-75 [facility] Comment on above: Order Comment: 'TROP ' Serial specimen #1, #2 or #3: 1 Result Comment: Plea se note: LIPASE revised reference range effective 22. New Lipase methodology. Expected to produce lower values than the previous assay method. NEW Reference Range: 13 - 75 U/L Performed By: #### B TS, L500.4050, L501.2450, L100.0100, L501.4020 #### [facility] [address] [place], [address] Stool Occult Blood iFOBon STOB Positive Normal [facility] Comment on above: Performed By: #### M 100.7900 ####[facility] [address] [place], [place], [id number] Type AND Screenon 04-23-2024 ABO and Rh group Nom (Bld) Blood group O Rh(D) positive [facility] Comment on above: Order Comment: RED W. PREVIOUS SPECIMEN REJECTED DUE TOWRITING ON FENWAL BAND SMEARED OFF;ILLEGIBLE. 04/23/24 1613A Performed By: #### B TS ####[facility] [address] [place], [place], [address] A1 CELL Not performed [facility] Comment on above: Order Comment: A Result Comment: This specimen has been REJECTED due to Laboratory criteria: MisLabelled-WRITING ON FENWAL SMEARED OFF;ILLEGIBLE. ED-COIL WINDER STRAP has been notified of need of recollection. 04/23/24 161 Performed By: #### B TS, L500.4050, L501.2450, L100.0100, L501.4020 #### [facility] [address] [place], [place], [address] Ab SCREEN GEL Not performed [facility] Comment on above: Order Comment: A Result Comment: This specimen has been REJECTED due to Laboratory criteria: MisLabelled-WRITING ON FENWAL SMEARED OFF;ILLEGIBLE. ED-COIL WINDER STRAP has been notified of need of recollection. 04/23/24 161 Performed By: #### B TS, L500.4050, L501.2450, L100.0100, L501.4020 #### [facility] [address] [place], [address] ABO and Rh group Nom (Bld) Test Not Performed [facility] Comment on above: Order Comment: A Result Comment: This specimen has been REJECTED due to Laboratory criteria: MisLabelled-WRITING ON FENWAL SMEARED OFF;ILLEGIBLE. ED-COIL WINDER STRAP has been notified of need of recollection. 04/23/241610 Performed By: #### B TS, L500.4050, L501.2450, L100.0100, L501.4020 #### [facility] [address] [place], [address] ANTI A Not performed [facility] Comment on above: Order Comment: A Result Comment: This specimen has been REJECTED due to Laboratory criteria: MisLabelled-WRITING ON FENWAL SMEARED OFF;ILLEGIBLE. ED-COIL WINDER STRAP has been notified of need of recollection. 04/23/241610 Performed By: #### B TS, L500.4050, L501.2450, L100.0100, L501.4020 #### [facility] [address] [place], [address] ANTI B Not performed [facility] Comment on above: Order Comment: A Result Comment: This specimen has been REJECTED due to Laboratory criteria: MisLabelled-WRITING ON FENWAL SMEARED OFF;ILLEGIBLE. ED-COIL WINDER STRAP has been notified of need of recollection. 04/23/241610 Performed By: #### B TS, L500.4050, L501.2450, L100.0100, L501.4020 #### [facility] [address] [place], [address] ANTI D Not performed [facility] Comment on above: Order Comment: A Result Comment: This specimen has been REJECTED due to Laboratory criteria: MisLabelled-WRITING ON FENWAL SMEARED OFF;ILLEGIBLE. ED-COIL WINDER STRAP has been notified of need of recollection. 04/23/241610 Performed By: #### B TS, L500.4050, L501.2450, L100.0100, L501.4020 #### [facility] [address] [place], [address] B CELLS Not performed [facility] Comment on above: Order Comment: A Result Comment: This specimen has been REJECTED due to Laboratory criteria: MisLabelled-WRITING ON FENWAL SMEARED OFF;ILLEGIBLE. ED-COIL WINDER STRAP has been notified of need of recollection. 04/23/241610 Performed By: #### B TS, L500.4050, L501.2450, L100.0100, L501.4020 #### [facility] [address] [place], [place], [address] BLD TYPE RECHEK Not performed Normal [facility] Comment on above: Order Comment: A Result Comment: This specimen has been REJECTED due to Laboratory criteria: MisLabelled-WRITING ON FENWAL SMEARED OFF;ILLEGIBLE. ED-COIL WINDER STRAP has been notified of need of recollection. 04/23/241610 Performed By: #### B TS, L500.4050, L501.2450, L100.0100, L501.4020 #### [facility] [address] [place], [place], [address] CNOVon 04-17-2024 [facility] -- GOOD [place] LUNA ([id number]) 1965 M Date Time Provider Department 04/17/24 9:40 AM GYPSY [facility] During your visit today, we recorded the following information about you: Pulse Respiration Blood pressure Weight 68/minute 16/minute 122/80 104.6 kg Gypsy Ayala 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 04/17/2024 11:30 AM Signed This is a [...] Sensation grossly (more content not included)... [facility] CNOVon 04-12-2024 CNOV Office Visit ([facility] ) -- GOOD DE LUNA ([id number]) 1965 M Date Time Provider Department 04/12/24 10:40 AM BRIAN AHMADI During your visit today, we recorded the following information about you: Pulse Respiration Blood pressure Weight 61/minute 16/minute 112/70 103.9 kg Brian Ahmadi 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 04/12/2024 10:58 AM Signed Chief Complaint Patient [...] neurology in April with Dr. Cisse in [place]. He has been following with ear nose and throat at [place] for inner ear problems. He was given [...] medications for the past month. Brian Ahmadi 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 RTO in 3 months, sooner if needed. This note was partly generated using [employer] voice recognition dictation and may contain some [...] Nicotine u (more content not included)... [facility] TSH SerPl-aCncon 04-12-2024 TSH Qn 0.123 m[IU]/L Low 0.270-4.200 [facility] Comment on above: Order Comment: Speci men Type: BLOOD SPECIMENOrdering Facility: [facility] Address: [address] [place] [address] Performed By: #### 3 016-3 ####[facility] [id number] [place] [address] [place] CBC W Auto Differential pane l (Bld)on 12-14-2023 Basophils (Bld) [#/Vol] 0.05 10*3/uL [facility] Basophils/100 WBC (Bld) 0.5 % [facility] Differential cell count method Nom (Bld) Auto [facility] Eosinophils (Bld) [#/Vol] 0.16 10*3/uL [facility] Eosinophils/100 WBC (Bld) 1.5 % [facility] Erythrocyte distribution width (RBC) [Ratio] 12.9 % 11.5 - 15.0 % [facility] Hematocrit (Bld) [Volume fraction] 45.5 % 39.0 - 51.0 % [facility] Hemoglobin (Bld) [Mass/Vol] 14.7 g/dL 13.0 - 17.0 g/dL [facility] Immature granulocytes (Bld) [#/Vol] 0.04 10*3[facility] Immature granulocytes/100 WBC (Bld) 0.4 % [facility] Interpretation and review of laboratory results Abnormal [facility] Lymphocytes (Bld) [#/Vol] 2.20 10*3/uL [facility] Lymphocytes/100 WBC (Bld) 21.0 % [facility] MCH (RBC) [Entitic mass] 29.7 pg 26.0 - 34.0 pg [facility] MCHC (RBC) [Mass/Vol] 32.3 g/dL 30.5 - 36.0 g/dL [facility] MCV (RBC) [Entitic vol] 91.9 fL 80.0 - 100.0 fL [facility] Monocytes (Bld) [#/Vol] 0.87 10*3/uL [facility] Monocytes/100 WBC (Bld) 8.3 % [facility] Neutrophils (Bld) [#/Vol] 7.15 10*3/uL [facility] Neutrophils/100 WBC (Bld) 68.3 % [facility] Nucleated RBC (Bld) [#/Vol] [facility] Nucleated RBC/100 WBC (Bld) [Ratio] 0.0 % /100 WBC [facility] Platelet mean volume (Bld) [Entitic vol] 11.8 fL 9.0 - 12.7 fL [facility] Platelets (Bld) [#/Vol] 242 10*3/uL [facility] RBC (Bld) [#/Vol] 4.95 10*6/uL 4.20 - 6.0 0 m/uL [facility] WBC (Bld) [#/Vol] 10.47 10*3/uL [facility] Comprehensive metabolic 2000 panelon 12-14-2023 Albumin [Mass/Vol] 4.4 g/dL 3.9 - 4.9 g/dL [facility] ALP [Catalytic activity/Vol] 88 U/L 38 - 113 U/L [facility] ALT [Catalytic activity/Vol] 31 U/L 10 - 54 U/L [facility] Anion gap [Moles/Vol] 15 mmol/L 9 - 18 mmol/L [facility] AST [Catalytic activity/Vol] 27 U/L 14 - 40 U/L [facility] Bilirubin [Mass/Vol] 0.3 mg/dL 0.2 - 1 .3 mg/dL [facility] Calcium [Mass/Vol] 9.7 mg/dL 8.5 - 10. 2 mg/dL [facility] Chloride [Moles/Vol] 99 mmol/L 97 - 10 5 mmol/L [facility] CO2 [Moles/Vol] 23 mmol/L 22 - 30 mmol/L [facility] Creatinine [Mass/Vol] 1.11 mg/dL 0.73 - 1.22 mg/dL [facility] GFR/1.73 sq M.predicted among non-blacks MDRD (S/P/Bld) [Vol rate/Area] 78 mL/min/{1.73_m2} - PINF [facility] Comment on above: Estimated Glomerular Filtration [...] [Mass/Vol] 95 mg/dL 74 - 99 mg/dL [facility] Comment on above: The [place] Diab[employer] s Association (ADA) provides guidance for [...] Standards of Medical Care in Diabetes 2016, [place] [employer]. Diabetes Care. 2016.39(Suppl 1). Interpretation and review of laboratory results Normal [facility] Potassium [Moles/Vol] 4.7 mmol/L 3.7 - 5.1 mmol/L [facility] Protein [Mass/Vol] 7.1 g/dL 6.3 - 8.0 g/dL [facility] Sodium [Moles/Vol] 137 mmol/L 136 - 144 mmol/L [facility] Urea nitrogen [Mass/Vol] 17 mg/dL 9 - 24 mg/dL [facility] FOLATE, SERUMon 12-14-2023 Folate [Mass/Vol] 18.5 ng/mL 4.7 - PINF ng/mL [facility] No Panel Informationon 12-13 Interpretation and review of laboratory results Normal [facility] Interpretation and review of laboratory results Normal [facility] T4 FREE/FREE THYROXINEon Free T4 [Mass/Vol] 1.1 ng/dL 0.9 - 1.7 ng/dL [facility] THYROID STIMULATING HORMONEo n 12-14-2023 TSH Qn 3.070 m[IU]/L [facility] VITAMIN B12on 12-14-2023 Cobalamin (Vitamin B12) [Mass/Vol] 464 pg/mL 232 - 1245 pg/mL [facility] No Panel Informationon 10-31 [facility] UA DIP, URINE (POC)on 2023 BILIRUBIN UA (POCT) Negative Negative [facility] CLARITY UA (POCT) Clear [facility] COLOR UA (POCT) Yellow [facility] GLUCOSE UA (POCT) Negative Negative mg/dL [facility] Hemoglobin Ql (U) Negative Negative [facility] KETONE UA (POCT) Trace Negative mg/dL [facility] LEUKOCYTES UA (POCT) Negative Negative [facility] NITRITE UA (POCT) Negative Negative [facility] PH UA (POCT) 6.0 4.5 - 8.0 [facility] Protein Ql (U) 30 mg/dL Abnormal Negative mg/dL [facility] SPECIFIC GRAVITY UA (POCT) 1.025 1.005 - 1.030 [facility] UROBILINOGEN UA (POCT) 0.2 E.U./dL Arti l E.U./dL [facility] 36on 10-11-2023 36 Name of caller: Rodríguez [facility] Contact phone number: [phone] Appointment scheduled with: Dr. [place] Appointment date & time: 10/18/23 8:00 AM Reason for visit (are you having any symptoms) : Developmental venous anomaly 09/26/23 ED admission Transportation issues/ concerns: No Special accommodations? ( wheel chair, etc) : None Current medications: No Any refills need: None Any chronic conditions the provider should be aware of: No Normal [facility] CALCIUMon 09-28-2023 Calcium [Mass/Vol] 9.0 mg/dL Normal 8.6-10.5 [facility] Comment on above: Performed By: #### I PB, CA, MGO, CHM7 #### [facility] (DEFAULT) [address] [address] Calcium [Mass/Vol] 9.0 mg/dL 8.6 - 10. 5 mg/dL [facility] CBC AND ELECTRONIC DIFFon Abs Baso Auto < Normal 0.00-0.09 [facility] Comment on above: Performed By: #### A 1CB, [id number] #### [facility] (DEFAULT) [address] [address] Basophils/100 WBC (Bld) 0.3 % Normal [facility] Comment on above: Performed By: #### A 1CB, [id number] #### [facility] (DEFAULT) [address] [address] DIFF STATUS Electronic Differential Normal [facility] Comment on above: Performed By: #### A 1CB, [id number] #### [facility] (DEFAULT) [address] [address] Eosinophils (Bld) [#/Vol] 0.22 10*3/uL Normal 0.00-0.48 [facility] Comment on above: Performed By: #### A 1CB, [id number] #### [facility] (DEFAULT) [address] [address] Eosinophils/100 WBC (Bld) 2.2 % Normal [facility] Comment on above: Performed By: #### Jonel DEVINE, [id number] #### [facility] (DEFAULT) [address] [address] Hematocrit (Bld) [Volume fraction] 41.1 % Normal 39.6-48.8 [facility] Comment on above: Performed By: #### Jonel ManeB, [id number] #### [facility] (DEFAULT) [address] [place] [address] Hemoglobin (Bld) [Mass/Vol] 13.4 g/dL Normal 13.4-16.8 [facility] Comment on above: Performed By: #### Jonel DEVINE, [id number] #### [facility] (DEFAULT) [address] [address] Immature Grans % 0.7 % Normal [facility] Comment on above: Performed By: #### Jonel DEVINE, [id number] #### [facility] (DEFAULT) [address] [address] Immature Grans Absolute 0.07 K/uL Normal <=0.07 [facility] Comment on above: Performed By: #### Jonel DEVINE, [id number] #### [facility] (DEFAULT) [address] [address] Lymphocytes (Bld) [#/Vol] 2.02 10*3/uL Normal 0.83-3.57 [facility] Comment on above: Performed By: #### Jonel 1CB, [id number] #### [facility] (DEFAULT) [address] [address] Lymphocytes/100 WBC (Bld) 20.2 % Normal [facility] Comment on above: Performed By: #### Jonel 1CB, [id number] #### [facility] (DEFAULT) [address] [place] [address] MCV (RBC) [Entitic vol] 93.0 fL Normal 79.0-94.5 [facility] Comment on above: Performed By: #### Jonel 1CAntonio, [id number] #### [facility] (DEFAULT) [address] [address] Mean Cell Hgb 30.3 pg Normal 26.1-33.3 [facility] Comment on above: Performed By: #### Jonel 1CB, [id number] #### [facility] (DEFAULT) [address] [address] Mean Cell Hgb Conc 32.6 g/dL Normal 31.9-36.5 [facility] Comment on above: Performed By: #### Jonel DEVINE, [id number] #### [facility] (DEFAULT) [address] [address] Monocytes (Bld) [#/Vol] 0.95 10*3/uL High 0.24-0.93 [facility] Comment on above: Performed By: #### Jonel DEVINE, [id number] #### [facility] (DEFAULT) [address] [address] Monocytes/100 WBC (Bld) 9.5 % Normal [facility] Comment on above: Performed By: #### Jonel DEVINE, [id number] #### [facility] (DEFAULT) [address] [address] Nucleated RBC 0.0 /100 WBC Normal <=0.2 [facility] Comment on above: Performed By: #### Jonel DEVINE, [id number] #### [facility] (DEFAULT) [address] [place] [address] Platelet mean volume (Bld) [Entitic vol] 11.6 fL Normal 8.7-12.3 [facility] Comment on above: Performed By: #### Jonel 1CAntonio, [id number] #### [facility] (DEFAULT) [address] [address] Platelets (Bld) [#/Vol] 218 10*3/uL Normal 146-337 [facility] Comment on above: Performed By: #### Jonel 1CB, [id number] #### [facility] (DEFAULT) [address] [place] [address] RBC (Bld) [#/Vol] 4.42 10*6/uL Normal 4.38-5.83 [facility] Comment on above: Performed By: #### Jonel 1CB, [id number] #### [facility] (DEFAULT) [address] [place] [address] RBC Distribution 13.0 % Normal 10.9-14.[address] [facility] Comment on above: Performed By: #### A 1CB, [id number] #### [facility] (DEFAULT) [address] [place] [address] Segs + Bands Auto 67.1 % Normal [facility] Comment on above: Performed By: #### Jonel 1CB, [id number] #### [facility] (DEFAULT) [address] [place] [address] Segs + Bands,Absolute Auto 6.72 K/uL High 1.57-6.19 [facility] Comment on above: Performed By: #### Jonel 1CB, [id number] #### [facility] (DEFAULT) [address] [place] [address] WBC (Bld) [#/Vol] 10.01 10*3/uL Normal 3.73-10.10 [facility] Comment on above: Performed By: #### Jonel 1CB, [id number] #### [facility] (DEFAULT) [address] [place] [address] Basophils (Bld) [#/Vol] K/uL 0.00 - 0.09 K/uL [facility] Basophils/100 WBC (Bld) 0.3 % [facility] Differential cell count method Nom (Bld) Electronic Differential [facility] Eosinophils (Bld) [#/Vol] 0.22 10*3/uL 0.00 - 0.48 K/uL [facility] Eosinophils/100 WBC (Bld) 2.2 % [facility] Erythrocyte distribution width (RBC) [Ratio] 13.0 % 10.9 - 14.3 % [facility] Hematocrit (Bld) [Volume fraction] 41.1 % 39.6 - 48.8 % [facility] Hemoglobin (Bld) [Mass/Vol] 13.4 g/dL 13.4 - 16.8 g/dL [facility] Immature granulocytes (Bld) [#/Vol] 0.07 10*3/uL NINF - 0.07 K/uL [facility] Immature granulocytes/100 WBC (Bld) 0.7 % [facility] Interpretation and review of laboratory results Abnormal [facility] Lymphocytes (Bld) [#/Vol] 2.02 10*3/uL 0.83 - 3.57 K/uL [facility] Lymphocytes/100 WBC (Bld) 20.2 % [facility] MCH (RBC) [Entitic mass] 30.3 pg 26.1 - 33.3 pg [facility] MCHC (RBC) [Mass/Vol] 32.6 g/dL 31.9 - 36.5 g/dL [facility] MCV (RBC) [Entitic vol] 93.0 fL 79.0 - 94.5 fL [facility] Monocytes (Bld) [#/Vol] 0.95 10*3/uL High 0.24 - 0.93 K/uL [facility] Monocytes/100 WBC (Bld) 9.5 % [facility] Neutrophils (Bld) [#/Vol] 6.72 10*3/uL High 1.57 - 6.19 K/uL [facility] Nucleated RBC/100 WBC (Bld) [Ratio] 0.0 % [facility] Platelet mean volume (Bld) [Entitic vol] 11.6 fL 8.7 - 12.3 fL [facility] Platelets (Bld) [#/Vol] 218 10*3/uL 146 - 337 K/uL [facility] RBC (Bld) [#/Vol] 4.42 10*6/uL [facility] Segmented neutrophils/100 WBC (Bld) 67.1 % [facility] WBC (Bld) [#/Vol] 10.01 10*3/uL 3.73 - 10.10 K/uL [facility] CHEM 7 (LYTES,BUN,CREA,GLUC) on 09-28-2023 Anion gap [Moles/Vol] 10 mmol/L Normal 7-17 [facility] Comment on above: Performed By: #### I PB, CA, MGO, CHM7 #### [facility] (DEFAULT) [address] [place] [address] Chloride [Moles/Vol] 103 mmol/L Normal 98-108 [facility] Comment on above: Performed By: #### I PB, CA, MGO, CHM7 #### [facility] (DEFAULT) [address] [place] [address] CO2 [Moles/Vol] 28 mmol/L Normal 21-31 [facility] Comment on above: Performed By: #### I PB, CA, MGO, CHM7 #### [facility] (DEFAULT) [address] [place] [address] Creatinine [Mass/Vol] 1.04 mg/dL Normal 0.70-1.30 [facility] Comment on above: Performed By: #### I PB, CA, MGO, CHM7 #### [facility] (DEFAULT) [address] [place] [address] GFR/1.73 sq M.predicted among non-blacks MDRD (S/P/Bld) [Vol rate/Area] 84 mL/min/{1.73_m2} Normal >=60 [facility] Comment on above: Result Comment: Repo rted eGFR is based on the CKD-EPI 2020 equation using creatinine, age, and sex. Performed By: #### I PB, CA, MGO, CHM7 #### [facility] (DEFAULT) [address] [place] [address] Glucose [Mass/Vol] 115 mg/dL High 70-99 [facility] Comment on above: Performed By: #### I PB, CA, MGO, CHM7 #### [facility] (DEFAULT) [address] [place] [address] Osmolality [Osmolality] 291 mosm/kg Normal 278-305 [facility] Comment on above: Performed By: #### I PB, CA, MGO, CHM7 #### [facility] (DEFAULT) [address] [place] [address] Potassium [Moles/Vol] 4.2 mmol/L Normal 3.5-5.0 [facility] Comment on above: Performed By: #### I PB, CA, MGO, CHM7 #### [facility] (DEFAULT) [address] [place] [address] Sodium [Moles/Vol] 137 mmol/L Normal 135-145 [facility] Comment on above: Performed By: #### I PB, CA, MGO, CHM7 #### [facility] (DEFAULT) [address] [place] [address] Urea nitrogen [Mass/Vol] 19 mg/dL Normal 7-25 [facility] Comment on above: Performed By: #### I PB, CA, MGO, CHM7 #### [facility] (DEFAULT) [address] [place] [address] Urea nitrogen/Creatinine [Mass ratio] 18 mg/mg Normal [facility] Comment on above: Performed By: #### I PB, CA, MGO, CHM7 #### [facility] (DEFAULT) [address] [place] [address] Anion gap [Moles/Vol] 10 mmol/L 7 - 17 mmol/L [facility] Chloride [Moles/Vol] 103 mmol/L 98 - 10 8 mmol/L [facility] CO2 [Moles/Vol] 28 mmol/L 21 - 31 mmol/L [facility] Creatinine [Mass/Vol] 1.04 mg/dL 0.70 - 1.30 mg/dL [facility] eGFR, CKD-EPI, Male 84 - PINF [facility] Comment on above: Reported eGFR is bas ed on the CKD-EPI 2020 equation using creatinine, age, and sex. Glucose [Mass/Vol] 115 mg/dL High 70 - 99 mg/dL [facility] Interpretation and review of laboratory results Abnormal [facility] Osmolality Calc [Osmolality] 291 [facility] Potassium [Moles/Vol] 4.2 mmol/L 3.5 - 5.0 mmol/L [facility] Sodium [Moles/Vol] 137 mmol/L 135 - 145 mmol/L [facility] Urea nitrogen [Mass/Vol] 19 mg/dL 7 - 25 mg/dL [facility] Urea nitrogen/Creatinine [Mass ratio] 18 mg/mg [facility] CONTINUOUS CARDIAC MONITORIN G STRIPon 09-28-2023 [facility] GLUCOSE POCon 09-28-2023 Glucose [Mass/Vol] 107 mg/dL High 70 - 99 mg/dL [facility] Interpretation and review of laboratory results Abnormal [facility] POC Sample Type CAPBL [facility] Test performed at ad dress of the patient encounter. [facility] MAGNESIUMon 09-28-2023 Magnesium [Mass/Vol] 1.8 mg/dL Normal 1.6-2.6 [facility] Comment on above: Performed By: #### I PB, CA, MGO, CHM7 #### [facility] (DEFAULT) [address] [place] [address] Magnesium [Mass/Vol] 1.8 mg/dL 1.6 - 2 .6 mg/dL [facility] No Panel Informationon 09-27 Interpretation and review of laboratory results Normal [facility] PHOSPHATE, INORGANICon 09-27 Phosphorous 3.7 mg/dL Normal 2.2-4.6 [facility] Comment on above: Performed By: #### A 1CB, [id number] #### [facility] (DEFAULT) [address] [place] [address] Phosphate [Mass/Vol] 3.7 mg/dL 2.2 - 4 .6 mg/dL [facility] PT,INR,PTTon 09-28-2023 aPTT Coag (Bld) [Time] 30.5 s Normal 24.0-34.3 [facility] Comment on above: Performed By: #### A 1CB, [id number] #### [facility] (DEFAULT) [address] [place] [address] INR Coag (PPP) [Relative time] 1.0 {INR} Normal 0.9-1.1 [facility] Comment on above: Performed By: #### A 1CB, [id number] #### [facility] (DEFAULT) [address] [place] [address] PT Coag (PPP) [Time] 13.0 s Normal 11.9-14.2 [facility] Comment on above: Performed By: #### A 1CB, [id number] #### [facility] (DEFAULT) [address] [place] [address] aPTT Coag (PPP) [Time] 30.5 s [facility] INR Coag (Bld) [Relative time] 1.0 {INR} 0.9 - 1.1 [facility] Interpretation and review of laboratory results Normal [facility] PT Coag (PPP) [Time] 13.[address] [facility] URINE CULTUREOrdered By: Eric Paul on 09-28-2023 Bacteria identified Cx Nom (Unsp spec) Growth [facility] Bacteria identified Cx Nom (Unsp spec) 10,000-50,000 CFU/mL Mixed skin angela [facility] Comment on above: Multiple bacterial m orphotypes present. Suggest appropriate recollection if clinically indicated. [facility] ABORH TYPE RECONFIRMATIONon 09-27-2023 ABO/RH(D) TYPE Positive Normal [facility] Comment on above: Performed By: #### T YPEC #### [facility] (DEFAULT) [address] [place] [address] ABO/RH(D) TYPE Positive [facility] CALCIUMon 09-27-2023 Calcium [Mass/Vol] 9.8 mg/dL Normal 8.6-10.5 [facility] Comment on above: Performed By: #### A 1CB, [id number] #### [facility] (DEFAULT) [address] [place] [address] Calcium [Mass/Vol] 9.8 mg/dL 8.6 - 10. 5 mg/dL [facility] Calcium [Mass/Vol] 9.5 mg/dL Normal 8.6-10.5 [facility] Comment on above: Performed By: #### Jonel 1CB, [id number] #### [facility] (DEFAULT) [address] [place] [address] CBC AND ELECTRONIC DIFFon Basophils (Bld) [#/Vol] 0.04 10*3/uL Normal 0.00-0.09 [facility] Comment on above: Performed By: #### L [id number] #### [facility] (DEFAULT) [address] [place] [address] Basophils/100 WBC (Bld) 0.3 % Normal [facility] Comment on above: Performed By: #### L [id number] #### [facility] (DEFAULT) [address] [place] [address] DIFF STATUS Electronic Differential Normal [facility] Comment on above: Performed By: #### L [id number] #### [facility] (DEFAULT) [address] [place] [address] Eosinophils (Bld) [#/Vol] 0.24 10*3/uL Normal 0.00-0.48 [facility] Comment on above: Performed By: #### L [id number] #### [facility] (DEFAULT) [address] [place] [address] Eosinophils/100 WBC (Bld) 2.1 % Normal [facility] Comment on above: Performed By: #### L [id number] #### [facility] (DEFAULT) [address] [place] [address] Hematocrit (Bld) [Volume fraction] 46.5 % Normal 39.6-48.8 [facility] Comment on above: Performed By: #### L [id number] #### [facility] (DEFAULT) [address] [place] [address] Hemoglobin (Bld) [Mass/Vol] 15.3 g/dL Normal 13.4-16.8 [facility] Comment on above: Performed By: #### L [id number] #### [facility] (DEFAULT) [address] [place] [address] Immature Grans % 0.9 % Normal [facility] Comment on above: Performed By: #### L [id number] #### [facility] (DEFAULT) [address] [place] [address] Immature Grans Absolute 0.10 K/uL High <=0.07 [facility] Comment on above: Performed By: #### L [id number] #### [facility] (DEFAULT) [address] [place] [address] Lymphocytes (Bld) [#/Vol] 2.60 10*3/uL Normal 0.83-3.57 [facility] Comment on above: Performed By: #### L [id number] #### [facility] (DEFAULT) [address] [address] Lymphocytes/100 WBC (Bld) 22.3 % Normal [facility] Comment on above: Performed By: #### L [id number] #### [facility] (DEFAULT) [address] [place] [address] MCV (RBC) [Entitic vol] 91.7 fL Normal 79.0-94.5 [facility] Comment on above: Performed By: #### L [id number] #### [facility] (DEFAULT) [address] [address] Mean Cell Hgb 30.2 pg Normal 26.1-33.3 [facility] Comment on above: Performed By: #### L [id number] #### [facility] (DEFAULT) [address] [address] Mean Cell Hgb Conc 32.9 g/dL Normal 31.9-36.5 [facility] Comment on above: Performed By: #### L [id number] #### [facility] (DEFAULT) [address] [address] Monocytes (Bld) [#/Vol] 1.04 10*3/uL High 0.24-0.93 [facility] Comment on above: Performed By: #### L [id number] #### [facility] (DEFAULT) [address] [address] Monocytes/100 WBC (Bld) 8.9 % Normal [facility] Comment on above: Performed By: #### L [id number] #### [facility] (DEFAULT) [address] [address] Nucleated RBC 0.0 /100 WBC Normal <=0.2 [facility] Comment on above: Performed By: #### L [id number] #### [facility] (DEFAULT) [address] [address] Platelet mean volume (Bld) [Entitic vol] 11.5 fL Normal 8.7-12.3 [facility] Comment on above: Performed By: #### L [id number] #### [facility] (DEFAULT) [address] [address] Platelets (Bld) [#/Vol] 254 10*3/uL Normal 146-337 [facility] Comment on above: Performed By: #### L [id number] #### [facility] (DEFAULT) [address] [address] RBC (Bld) [#/Vol] 5.07 10*6/uL Normal 4.38-5.83 [facility] Comment on above: Performed By: #### L [id number] #### [facility] (DEFAULT) [address] [place] [address] RBC Distribution 13.2 % Normal 10.9-14.[address] [facility] Comment on above: Performed By: #### L [id number] #### [facility] (DEFAULT) [address] [place] [address] Segs + Bands Auto 65.5 % Normal [facility] Comment on above: Performed By: #### L [id number] #### [facility] (DEFAULT) [address] [place] [address] Segs + Bands,Absolute Auto 7.62 K/uL High 1.57-6.19 [facility] Comment on above: Performed By: #### L [id number] #### [facility] (DEFAULT) [address] [place] [address] WBC (Bld) [#/Vol] 11.64 10*3/uL High 3.73-10.10 [facility] Comment on above: Performed By: #### L [id number] #### [facility] (DEFAULT) [address] [place] [address] Basophils (Bld) [#/Vol] 0.04 10*3/uL 0.00 - 0.09 K/uL [facility] Basophils/100 WBC (Bld) 0.3 % [facility] Differential cell count method Nom (Bld) Electronic Differential [facility] Eosinophils (Bld) [#/Vol] 0.24 10*3/uL 0.00 - 0.48 K/uL [facility] Eosinophils/100 WBC (Bld) 2.1 % [facility] Erythrocyte distribution width (RBC) [Ratio] 13.2 % 10.9 - 14.3 % [facility] Hematocrit (Bld) [Volume fraction] 46.5 % 39.6 - 48.8 % [facility] Hemoglobin (Bld) [Mass/Vol] 15.3 g/dL 13.4 - 16.8 g/dL [facility] Immature granulocytes (Bld) [#/Vol] 0.10 10*3/uL High NINF - 0.07 K/uL [facility] Immature granulocytes/100 WBC (Bld) 0.9 % [facility] Interpretation and review of laboratory results Abnormal [facility] Lymphocytes (Bld) [#/Vol] 2.60 10*3/uL 0.83 - 3.57 K/uL [facility] Lymphocytes/100 WBC (Bld) 22.3 % [facility] MCH (RBC) [Entitic mass] 30.2 pg 26.1 - 33.3 pg [facility] MCHC (RBC) [Mass/Vol] 32.9 g/dL 31.9 - 36.5 g/dL [facility] MCV (RBC) [Entitic vol] 91.7 fL 79.0 - 94.5 fL [facility] Monocytes (Bld) [#/Vol] 1.04 10*3/uL High 0.24 - 0.93 K/uL [facility] Monocytes/100 WBC (Bld) 8.9 % [facility] Neutrophils (Bld) [#/Vol] 7.62 10*3/uL High 1.57 - 6.19 K/uL [facility] Nucleated RBC/100 WBC (Bld) [Ratio] 0.0 % [facility] Platelet mean volume (Bld) [Entitic vol] 11.5 fL 8.7 - 12.3 fL [facility] Platelets (Bld) [#/Vol] 254 10*3/uL 146 - 337 K/uL [facility] RBC (Bld) [#/Vol] 5.07 10*6/uL [facility] Segmented neutrophils/100 WBC (Bld) 65.5 % [facility] WBC (Bld) [#/Vol] 11.64 10*3/uL High 3.73 - 10.10 K/uL [facility] Basophils (Bld) [#/Vol] 0.04 10*3/uL Normal 0.00-0.09 [facility] Comment on above: Performed By: #### Jonel 1CAntonio, [id number] #### [facility] (DEFAULT) [address] [place] [address] 80194 Basophils/100 WBC (Bld) 0.4 % Normal [facility] Comment on above: Performed By: #### Jonel 1CAntonio, [id number] #### [facility] (DEFAULT) [address] [place] [address] 30767 DIFF STATUS Electronic Differential Normal [facility] Comment on above: Performed By: #### Jonel DEVINE, [id number] #### [facility] (DEFAULT) [address] [place] [address] 82475 Eosinophils (Bld) [#/Vol] 0.25 10*3/uL Normal 0.00-0.48 [facility] Comment on above: Performed By: #### Jonel DEVINE, [id number] #### [facility] (DEFAULT) [address] [address] Eosinophils/100 WBC (Bld) 2.4 % Normal [facility] Comment on above: Performed By: #### Jonel 1CAntonio, [id number] #### [facility] (DEFAULT) [address] [place] [address] 43595 Hematocrit (Bld) [Volume fraction] 43.8 % Normal 39.6-48.8 [facility] Comment on above: Performed By: #### Jonel 1CAntonio, [id number] #### [facility] (DEFAULT) [address] [address] Hemoglobin (Bld) [Mass/Vol] 14.5 g/dL Normal 13.4-16.8 [facility] Comment on above: Performed By: #### Jonel 1CAntonio, [id number] #### [facility] (DEFAULT) [address] [place] [address] 28987 Immature Grans % 0.7 % Normal [facility] Comment on above: Performed By: #### Jonel 1CB, [id number] #### [facility] (DEFAULT) [address] [place] [address] 02568 Immature Grans Absolute 0.07 K/uL Normal <=0.07 [facility] Comment on above: Performed By: #### Jonel 1CB, [id number] #### [facility] (DEFAULT) [address] [place] [address] 68881 Lymphocytes (Bld) [#/Vol] 2.49 10*3/uL Normal 0.83-3.57 [facility] Comment on above: Performed By: #### Jonel 1CB, [id number] #### [facility] (DEFAULT) [address] [place] [address] 28784 Lymphocytes/100 WBC (Bld) 24.1 % Normal [facility] Comment on above: Performed By: #### Jonel 1CB, [id number] #### [facility] (DEFAULT) [address] [place] [address] 03252 MCV (RBC) [Entitic vol] 92.6 fL Normal 79.0-94.5 [facility] Comment on above: Performed By: #### Jonel 1CB, [id number] #### [facility] (DEFAULT) [address] [place] [address] 50646 Mean Cell Hgb 30.7 pg Normal 26.1-33.3 [facility] Comment on above: Performed By: #### A 1CB, [id number] #### [facility] (DEFAULT) [address] [place] [address] 45834 Mean Cell Hgb Conc 33.1 g/dL Normal 31.9-36.5 [facility] Comment on above: Performed By: #### A 1CB, [id number] #### [facility] (DEFAULT) [address] [place] [address] 24642 Monocytes (Bld) [#/Vol] 0.83 10*3/uL Normal 0.24-0.93 [facility] Comment on above: Performed By: #### Jonel DEVINE, [id number] #### [facility] (DEFAULT) [address] [place] [address] 47238 Monocytes/100 WBC (Bld) 8.0 % Normal [facility] Comment on above: Performed By: #### Jonel 1CB, [id number] #### [facility] (DEFAULT) [address] [place] [address] 91608 Nucleated RBC 0.0 /100 WBC Normal <=0.2 [facility] Comment on above: Performed By: #### Jonel DEVINE, [id number] #### [facility] (DEFAULT) [address] [place] [address] 36132 Platelet mean volume (Bld) [Entitic vol] 11.5 fL Normal 8.7-12.3 [facility] Comment on above: Performed By: #### Jonel DEVINE, [id number] #### [facility] (DEFAULT) [address] [place] [address] 68906 Platelets (Bld) [#/Vol] 252 10*3/uL Normal 146-337 [facility] Comment on above: Performed By: #### Jonel 1CB, [id number] #### [facility] (DEFAULT) [address] [place] [address] 33967 RBC (Bld) [#/Vol] 4.73 10*6/uL Normal 4.38-5.83 [facility] Comment on above: Performed By: #### Jonel 1CB, [id number] #### [facility] (DEFAULT) [address] [place] [address] 21720 RBC Distribution 13.0 % Normal 10.9-14.[address] [facility] Comment on above: Performed By: #### Jonel 1CB, [id number] #### [facility] (DEFAULT) [address] [place] [address] 03796 Segs + Bands Auto 64.4 % Normal [facility] Comment on above: Performed By: #### Jonel DEVINE, [id number] #### [facility] (DEFAULT) [address] [place] [address] 88928 Segs + Bands,Absolute Auto 6.65 K/uL High 1.57-6.19 [facility] Comment on above: Performed By: #### Jonel DEVINE, [id number] #### [facility] (DEFAULT) [address] [place] [address] 23864 WBC (Bld) [#/Vol] 10.33 10*3/uL High 3.73-10.10 [facility] Comment on above: Performed By: #### Jonel DEVINE, [id number] #### [facility] (DEFAULT) [address] [place] [address] 16591 CHEM 7 (LYTES,BUN,CREA,GLUC) on 09-27-2023 Anion gap [Moles/Vol] 15 mmol/L Normal 7-17 [facility] Comment on above: Performed By: #### Jonel DEVINE, [id number] #### [facility] (DEFAULT) [address] [place] [address] 20827 Chloride [Moles/Vol] 102 mmol/L Normal 98-108 [facility] Comment on above: Performed By: #### Jonel DEVINE, [id number] #### [facility] (DEFAULT) [address] [place] [address] 69547 CO2 [Moles/Vol] 26 mmol/L Normal 21-31 [facility] Comment on above: Performed By: #### Jonel DEVINE, [id number] #### [facility] (DEFAULT) [address] [place] [address] 62484 Creatinine [Mass/Vol] 0.93 mg/dL Normal 0.70-1.30 [facility] Comment on above: Performed By: #### Jonel DEVINE, [id number] #### [facility] (DEFAULT) [address] [place] [address] 18037 eGFR, CKD-EPI, Male > Normal >=60 [facility] Comment on above: Result Comment: Repo rted eGFR is based on the CKD-EPI 2020 equation using creatinine, age, and sex. Performed By: #### Jonel DEVINE, [id number] #### [facility] (DEFAULT) [address] [place] [address] 65749 Glucose [Mass/Vol] 96 mg/dL Normal 70-99 [facility] Comment on above: Performed By: #### Jonel ManeB, [id number] #### [facility] (DEFAULT) [address] [place] [address] 38973 Osmolality [Osmolality] 292 mosm/kg Normal 278-305 [facility] Comment on above: Performed By: #### Jonel DEVINE, [id number] #### [facility] (DEFAULT) [address] [place] [address] 21204 Potassium [Moles/Vol] 4.5 mmol/L Normal 3.5-5.0 [facility] Comment on above: Performed By: #### Jonel DEVINE, [id number] #### [facility] (DEFAULT) [address] [place] [address] 99953 Sodium [Moles/Vol] 138 mmol/L Normal 135-145 [facility] Comment on above: Performed By: #### Jonel DEVINE, [id number] #### [facility] (DEFAULT) [address] [place] [address] 85190 Urea nitrogen [Mass/Vol] 18 mg/dL Normal 7-25 [facility] Comment on above: Performed By: #### Jonel DEVINE, [id number] #### [facility] (DEFAULT) [address] [place] [address] 53921 Urea nitrogen/Creatinine [Mass ratio] 19 mg/mg Normal [facility] Comment on above: Performed By: #### Jonel ManeB, [id number] #### [facility] (DEFAULT) [address] [place] [address] 89038 Anion gap [Moles/Vol] 15 mmol/L 7 - 17 mmol/L [facility] Chloride [Moles/Vol] 102 mmol/L 98 - 10 8 mmol/L [facility] CO2 [Moles/Vol] 26 mmol/L 21 - 31 mmol/L [facility] Creatinine [Mass/Vol] 0.93 mg/dL 0.70 - 1.30 mg/dL [facility] eGFR, CKD-EPI, Male - PINF [facility] Comment on above: Reported eGFR is bas ed on the CKD-EPI 2020 equation using creatinine, age, and sex. Glucose [Mass/Vol] 96 mg/dL 70 - 99 mg/dL [facility] Osmolality Calc [Osmolality] 292 [facility] Potassium [Moles/Vol] 4.5 mmol/L 3.5 - 5.0 mmol/L [facility] Sodium [Moles/Vol] 138 mmol/L 135 - 145 mmol/L [facility] Urea nitrogen [Mass/Vol] 18 mg/dL 7 - 25 mg/dL [facility] Urea nitrogen/Creatinine [Mass ratio] 19 mg/mg [facility] CHM 7 - EDon 09-27-2023 Anion gap [Moles/Vol] 12 mmol/L Normal 7-17 [facility] Comment on above: Performed By: #### Jonel DEVINE, [id number] #### [facility] (DEFAULT) [address] [address] Chloride [Moles/Vol] 103 mmol/L Normal 98-108 [facility] Comment on above: Performed By: ###Jim DEVINE, [id number] #### [facility] (DEFAULT) [address] [address] CO2 [Moles/Vol] 24 mmol/L Normal 21-31 [facility] Comment on above: Performed By: ###Jim DEVINE, [id number] #### [facility] (DEFAULT) [address] [address] Creatinine [Mass/Vol] 0.88 mg/dL Normal 0.70-1.30 [facility] Comment on above: Performed By: ###Jim DEVINE, [id number] #### [facility] (DEFAULT) [address] [place] [address] 80843 eGFR, CKD-EPI, Male > Normal >=60 [facility] Comment on above: Result Comment: Repo rted eGFR is based on the CKD-EPI 2020 equation using creatinine, age, and sex. Performed By: #### A 1CB, [id number] #### [facility] (DEFAULT) [address] [place] [address] 28244 Glucose [Mass/Vol] 97 mg/dL Normal 70-99 [facility] Comment on above: Performed By: #### A 1CB, [id number] #### [facility] (DEFAULT) [address] [place] [address] 01852 Osmolality [Osmolality] 285 mosm/kg Normal 278-305 [facility] Comment on above: Performed By: #### A 1CB, [id number] #### [facility] (DEFAULT) [address] [place] [address] 24862 Potassium [Moles/Vol] 4.1 mmol/L Normal 3.5-5.0 [facility] Comment on above: Performed By: #### A 1CB, [id number] #### [facility] (DEFAULT) [address] [place] [address] 87102 Sodium [Moles/Vol] 135 mmol/L Normal 135-145 [facility] Comment on above: Performed By: #### A 1CB, [id number] #### [facility] (DEFAULT) [address] [place] [address] 53717 Urea nitrogen [Mass/Vol] 18 mg/dL Normal 7-25 [facility] Comment on above: Performed By: #### A 1CB, [id number] #### [facility] (DEFAULT) [address] [place] [address] 79761 Urea nitrogen/Creatinine [Mass ratio] 20 mg/mg Normal [facility] Comment on above: Performed By: #### A 1CB, [id number] #### [facility] (DEFAULT) [address] [place] [address] 37441 CONTINUOUS CARDIAC MONITORIN G STRIPOrdered By: Unassigned Pacs on 09-27-2023 [facility] Work Phone: CT HEAD WITHOUT CONTRASTon 0 [...] effect or midline shift. No hydrocephalus. Cortical kunz-white matter differentiation is preserved. Stable bilateral colpocephaly. No skull fracture. Small retention cyst or polyp in the right maxillary sinus. Partial opacification of the left mastoid air cells. 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 Stable incidental developmental venous anomaly in the right paramedian aspect of the cerebellar vermis. Normal [facility] CT Head WO contraston 2023 IMPRESSION: [...] effect or midline shift. No hydrocephalus. Cortical kunz-white matter differentiation is preserved. Stable bilateral colpocephaly. [...] effect or midline shift. No hydrocephalus. Cortical kunz-white matter differentiation is preserved. Stable bilateral colpocephaly. No skull fracture. Small retention cyst or polyp in the right maxillary sinus. Partial opacification of the left mastoid air cells. 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 Stable incidental developmental venous anomaly in the right paramedian aspect of the cerebellar vermis. [facility] Radiology Study observation (narrative) [facility] CT Head WO contrastOrdered B y: Raphael Quan on 09-27-2023 [facility] Work Phone: CT STROKE HEAD-STROKE ALERT [...] are provided. Reformats: Sagittal and coronal. FINDINGS: Kunz-white matter differentiation is preserved. No acute large [...] have reviewed and approved this report. Normal [facility] EXTRA MICROon 09-27-2023 [facility] HEMOGLOBIN A1Con 09-27-2023 Average glucose Estimated from glycated hemoglobin (Bld) [Mass/Vol] 111 mg/dL [facility] HbA1c (Bld) [Mass fraction] 5.5 % 4.7 - 5.6 % [facility] Glucose [Mass/Vol] 111 mg/dL Normal [facility] Comment on above: Performed By: #### Jonel 1CB, [id number] #### [facility] (DEFAULT) [address] [place] [address] 18959 Hemoglobin A1C HPLC 5.5 % Normal 4.7-5.6 [facility] Comment on above: Performed By: #### Jonel 1CB, [id number] #### [facility] (DEFAULT) [address] [place] [address] 98204 HEPATIC FUNCTION PANELon Albumin [Mass/Vol] 4.4 g/dL Normal 3.5-5.0 [facility] Comment on above: Performed By: #### Jonel 1CB, [id number] #### [facility] (DEFAULT) [address] [place] [address] 62057 ALP [Catalytic activity/Vol] 77 U/L Normal 32-126 [facility] Comment on above: Performed By: #### Jonel 1CB, [id number] #### [facility] (DEFAULT) [address] [place] [address] 85600 ALT [Catalytic activity/Vol] 30 U/L Normal 10-52 [facility] Comment on above: Performed By: #### Jonel 1CB, [id number] #### [facility] (DEFAULT) [address] [place] [address] 59086 AST [Catalytic activity/Vol] 24 U/L Normal 10-39 [facility] Comment on above: Performed By: #### Jonel 1CB, [id number] #### [facility] (DEFAULT) [address] [place] [address] 76780 Bilirubin [Mass/Vol] 0.6 mg/dL Normal <1.5 [facility] Comment on above: Performed By: #### Jonel 1CB, [id number] #### [facility] (DEFAULT) [address] [place] [address] 27561 Bilirubin.indirect [Mass/Vol] 0.1 mg/dL Normal <0.3 [facility] Comment on above: Performed By: #### A 1CB, [id number] #### [facility] (DEFAULT) [address] [place] [address] Protein [Mass/Vol] 7.5 g/dL Normal 6.4-8.3 [facility] Comment on above: Performed By: #### Jonel 1CB, [id number] #### [facility] (DEFAULT) [address] [place] [address] HIGH SENSITIVITY TROPONIN I - SINGLE ORDERon 09-27-2023 hs-Troponin I 3 ng/L Normal <53 [facility] Comment on above: Order Comment: Acute Coronary Syndrome (ACS): Initial Evaluation and Management:[email or web address] Performed By: #### Jonel 1CB, [id number] #### [facility] (DEFAULT) [address] [place] [address] LIPID PANEL WITH REFLEX TO M KLAUS LDLon 09-27-2023 Cholesterol [Mass/Vol] 195 mg/dL NINF - 200 mg/dL [facility] Comment on above: [<200 mg/dL: Desirab le] [200-239 mg/dL: Borderline High] [>239 mg/dL: High] Cholesterol in HDL [Mass/Vol] 41 mg/dL 40 - PINF mg/dL [facility] Comment on above: [<40 mg/dL: Low (Hig h Risk)] [>59 mg/dL: High (Low Risk)] Cholesterol in LDL [Mass/Vol] 129 mg/dL High 0 - 99 mg/dL [facility] Comment on above: [<100 mg/dL: Optimal ] [100-129 mg/dL: Near Optimal] [130-159 mg/dL: Borderline High] [160-189 mg/dL: High] [>189 mg/dL: Very High] Cholesterol non HDL [Mass/Vol] 154 mg/dL High NINF - 130 mg/dL [facility] Cholesterol.total/Chol esterol in HDL [Mass ratio] 4.8 {ratio} High NINF - 4.5 [facility] Interpretation and review of laboratory results Abnormal [facility] Triglyceride [Mass/Vol] 124 mg/dL NINF - 150 mg/dL [facility] Comment on above: [<150 mg/dL: Desirab le] [150-199 mg/dL: Borderline] [200-499 mg/dL: High] [>500 mg/dL: Very High] [facility] Calculated LDL Cholesterol 129 mg/dL High 0-99 [facility] Comment on above: Result Comment: [<10 0 mg/dL: Optimal] [100-129 mg/dL: Near Optimal] [130-159 mg/dL: Borderline High] [160-189 mg/dL: High] [>189 mg/dL: Very High] Performed By: #### Jonel DEVINE, [id number] #### [facility] (DEFAULT) [address] [place] [address] 30405 Cholesterol [Mass/Vol] 195 mg/dL Normal <200 [facility] Comment on above: Result Comment: [<20 0 mg/dL: Desirable] [200-239 mg/dL: Borderline High] [>239 mg/dL: High] Performed By: #### Jonel 1CB, [id number] #### [facility] (DEFAULT) [address] [place] [address] 03087 Cholesterol in HDL [Mass/Vol] 41 mg/dL Normal >=40 [facility] Comment on above: Result Comment: [<40 mg/dL: Low (High Risk)] [>59 mg/dL: High (Low Risk)] Performed By: #### Jonel 1CAntonio, [id number] #### [facility] (DEFAULT) [address] [place] [address] 79598 Non HDL Cholesterol 154 mg/dL High <130 [facility] Comment on above: Performed By: #### Jonel 1CB, [id number] #### [facility] (DEFAULT) [address] [place] [address] 83481 Total Cholesterol/HDL Ratio 4.8 High <4.5 [facility] Comment on above: Performed By: #### A 1CB, [id number] #### [facility] (DEFAULT) [address] [place] [address] 17347 Triglyceride [Mass/Vol] 124 mg/dL Normal <150 [facility] Comment on above: Result Comment: [<15 0 mg/dL: Desirable] [150-199 mg/dL: Borderline] [200-499 mg/dL: High] [>500 mg/dL: Very High] Performed By: #### A 1CB, [id number] #### [facility] (DEFAULT) [address] [place] [address] 60480 MAGNESIUMon 09-27-2023 Magnesium [Mass/Vol] 1.9 mg/dL Normal 1.6-2.6 [facility] Comment on above: Performed By: #### Jonel 1CB, [id number] #### [facility] (DEFAULT) [address] [place] [address] 30097 Magnesium [Mass/Vol] 1.9 mg/dL 1.6 - 2 .6 mg/dL [facility] Magnesium [Mass/Vol] 1.9 mg/dL Normal 1.6-2.6 [facility] Comment on above: Performed By: #### Jonel 1CB, [id number] #### [facility] (DEFAULT) [address] [place] [address] 24713 MR Brain WO and W contrast I Von 09-27-2023 Addendum by Fab Wilks MD on 09/27/2023 3:18 PM EST ADDENDUM #1 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 [facility] Revised impression: 1. Developmental venous anomaly [...] No evidence of mass, hydrocephalus, or infarct. [facility] Radiology Study observation (narrative) [facility] MR Brain WO and W contrast I VOrdered By: Fab Wilks on 09-27-2023 [facility] MRI BRAIN WITH AND WITHOUT C [...] evidence of mass, hydrocephalus, or infarct. Normal [facility] No Panel Informationon 09-26 Interpretation and review of laboratory results Normal [facility] PHOSPHATE, INORGANICon 09-26 Phosphorous 3.2 mg/dL Normal 2.2-4.6 [facility] Comment on above: Performed By: #### A 1CB, [id number] #### [facility] (DEFAULT) [address] [place] [address] Phosphate [Mass/Vol] 3.2 mg/dL 2.2 - 4 .6 mg/dL [facility] Phosphorous 3.4 mg/dL Normal 2.2-4.6 [facility] Comment on above: Performed By: #### A 1CB, [id number] #### [facility] (DEFAULT) [address] [place] [address] 01034 PT,INR,PTTon 09-27-2023 aPTT Coag (Bld) [Time] 31.4 s Normal 24.0-34.3 [facility] Comment on above: Performed By: #### A 1CB, [id number] #### [facility] (DEFAULT) [address] [place] [address] 99843 INR Coag (PPP) [Relative time] 1.0 {INR} Normal 0.9-1.1 [facility] Comment on above: Performed By: #### A 1CB, [id number] #### [facility] (DEFAULT) [address] [place] [address] 62045 PT Coag (PPP) [Time] 12.6 s Normal 11.9-14.2 [facility] Comment on above: Performed By: #### A 1CB, [id number] #### [facility] (DEFAULT) [address] [place] [address] 06671 aPTT Coag (PPP) [Time] 31.4 s [facility] INR Coag (Bld) [Relative time] 1.0 {INR} 0.9 - 1.1 [facility] Interpretation and review of laboratory results Normal [facility] PT Coag (PPP) [Time] 12.[address] [facility] PTINR-STROKEon 09-27-2023 INR Coag (PPP) [Relative time] 1.0 {INR} Normal 0.9-1.1 [facility] Comment on above: Performed By: #### A 1CB, [id number] #### [facility] (DEFAULT) [address] [place] [address] 84192 PT Coag (PPP) [Time] 12.7 s Normal 11.9-14.2 [facility] Comment on above: Performed By: #### A 1CB, [id number] #### [facility] (DEFAULT) [address] [place] [address] 13269 PTTon 09-27-2023 aPTT Coag (Bld) [Time] 31.2 s Normal 24.0-34.3 [facility] Comment on above: Performed By: #### A 1CB, [id number] #### [facility] (DEFAULT) [address] [place] [address] 61594 TYPE AND SCREENon 09-27-2023 ABO/RH(D) TYPE Positive Normal [facility] Comment on above: Performed By: #### A 1CB, [id number] #### [facility] (DEFAULT) [address] [place] [address] 24201 ABO/RH(D) TYPE Positive [facility] URINALYSIS REFLEX TO CULTURE PERFORMABLEon 09-27-2023 Appearance (U) Clear Normal Clear [facility] Comment on above: Order Comment: For i ndwelling catheters, specimen collection is acceptable on catheter day 1 and 2 only. ? Performed By: #### U [id number] #### [facility] (DEFAULT) [address] [place] [address] 71486 Bacteria ABSENT Normal ABSENT [facility] Comment on above: Order Comment: For i ndwelling catheters, specimen collection is acceptable on catheter day 1 and 2 only. ? Performed By: #### U [id number] #### [facility] (DEFAULT) [address] [place] [address] 15079 Blood Urine Negative Normal Negative [facility] Comment on above: Order Comment: For i ndwelling catheters, specimen collection is acceptable on catheter day 1 and 2 only. ? Performed By: #### U [id number] #### [facility] (DEFAULT) [address] [place] [address] 84210 Color (U) Yellow Normal Yellow [facility] Comment on above: Order Comment: For i ndwelling catheters, specimen collection is acceptable on catheter day 1 and 2 only. ? Performed By: #### U [id number] #### [facility] (DEFAULT) [address] [place] [address] 26600 Glucose Ql (U) Negative Normal Negative [facility] Comment on above: Order Comment: For i ndwelling catheters, specimen collection is acceptable on catheter day 1 and 2 only. ? Performed By: #### U [id number] #### [facility] (DEFAULT) [address] [place] [address] 95670 Ketones Ql (U) Negative Normal Negative [facility] Comment on above: Order Comment: For i ndwelling catheters, specimen collection is acceptable on catheter day 1 and 2 only. ? Performed By: #### U [id number] #### [facility] (DEFAULT) [address] [place] [address] 22628 Leukocyte esterase Test strip Ql (U) Trace Abnormal Negative [facility] Comment on above: Order Comment: For i ndwelling catheters, specimen collection is acceptable on catheter day 1 and 2 only. ? Performed By: #### U [id number] #### [facility] (DEFAULT) [address] [place] [address] 16563 Nitrites Urine Negative Normal Negative [facility] Comment on above: Order Comment: For i ndwelling catheters, specimen collection is acceptable on catheter day 1 and 2 only. ? Performed By: #### U [id number] #### [facility] (DEFAULT) [address] [place] [address] 02331 pH (U) 6.5 [pH] Normal 5.0-7.0 [facility] Comment on above: Order Comment: For i ndwelling catheters, specimen collection is acceptable on catheter day 1 and 2 only. ? Performed By: #### U [id number] #### [facility] (DEFAULT) [address] [place] [address] 98719 Protein Urine Trace Abnormal Negative [facility] Comment on above: Order Comment: For i ndwelling catheters, specimen collection is acceptable on catheter day 1 and 2 only. ? Performed By: #### U [id number] #### [facility] [facility] (DEFAULT[facility] [address] [place] [address] [id number] RBC Urine 0-2 Normal 0-2 [facility] Comment on above: Order Comment: For i ndwelling catheters, specimen collection is acceptable on catheter day 1 and 2 only. ? Performed By: #### U [id number] #### [facility] (DEFAULT) [address] [place] [id number] Specific [place] Urine > High 1.001-1.035 O [facility] Comment on above: Order Comment: For i ndwelling catheters, specimen collection is acceptable on catheter day 1 and 2 only. ? Performed By: #### U [id number] #### [facility] (DEFAULT) [address] [place] [id number] Squamous/Epithelial Cells 0-2/hpf Normal 0-2/hpf, 3-5/hpf = 1+ [facility] Comment on above: Order Comment: For i ndwelling catheters, specimen collection is acceptable on catheter day 1 and 2 only. ? Performed By: #### U [id number] #### [facility] (DEFAULT) [address] [place] [address] [id number] Urobilinogen Urine 1.0 E.U./dL Normal 0.2 E.U/d L, 1.0 E.U/dL [facility] Comment on above: Order Comment: For i ndwelling catheters, specimen collection is acceptable on catheter day 1 and 2 only. ? Performed By: #### U [id number] #### [facility] (DEFAULT) [address] [place] [address] [id number] WBC LM.HPF (Urine sed) [#/Area] /[HPF] Abnormal 0 - 5 [facility] Comment on above: Order Comment: For i ndwelling catheters, specimen collection is acceptable on catheter day 1 and 2 only. ? Performed By: #### U [id number] #### [facility] (DEFAULT) [address] [place] [id number] Appearance (U) Clear Clear [facility] Bacteria LM Ql (Urine sed) ABSENT ABSENT [facility] Color (U) Yellow Yellow [facility] Epithelial cells.squamous LM Ql (Urine sed) 0-2/hpf 0-2/hpf, 3-5/hpf = 1+ [facility] Glucose Test strip (U) [Mass/Vol] Negative Negative [facility] Interpretation and review of laboratory results [facility]normal [facility] Ketones (U) [Mass/Vol] Negative Negative [facility] Leukocyte esterase Test strip Ql (U) Trace Abnormal Negative [facility] Nitrite Ql (U) Negative Negative [facility] pH (U) 6.5 [pH] 5.0 - 7.0 [facility] Protein (U) [Mass/Vol] Trace Abnormal Negative [facility] RBC (U) [#/Vol] Negative Negative [facility] RBC LM.HPF (Urine sed) [#/Area] 0-2 [facility] Specific gravity (U) [Rel density] High 1.001 - 1.035 [facility] Urobilinogen (U) [Mass/Vol] 1.0 E.U./dL 0.2 E.U/dL, 1.0 E.U/dL [facility] WBC LM.HPF (Urine sed) [#/Area] /[HPF] Abnormal [facility] URINE CULTUREon 09-27-2023 Bacteria identified Cx Nom (U) Normal [facility] Comment on above: Order Comment: For [...] indicated. Performed By: #### U R #### [facility] (DEFAULT) [address] [place] [address] CALCIUMon 09-26-2023 Calcium [Mass/Vol] 9.5 mg/dL 8.6 - 10. 5 mg/dL [facility] CBC AND ELECTRONIC DIFFon Basophils (Bld) [#/Vol] 0.04 10*3/uL 0.00 - 0.09 K/uL [facility] Basophils/100 WBC (Bld) 0.4 % [facility] Differential cell count method Nom (Bld) Electronic Differential O [facility] Eosinophils (Bld) [#/Vol] 0.25 10*3/uL 0.00 - 0.48 K/uL [facility] Eosinophils/100 WBC (Bld) 2.4 % [facility] Erythrocyte distribution width (RBC) [Ratio] 13.0 % 10.9 - 14.3 % [facility] Hematocrit (Bld) [Volume fraction] 43.8 % 39.6 - 48.8 % [facility] Hemoglobin (Bld) [Mass/Vol] 14.5 g/dL 13.4 - 16.8 g/dL [facility] Immature granulocytes (Bld) [#/Vol] 0.07 10*3/uL NINF - 0.07 K/uL [facility] Immature granulocytes/100 WBC (Bld) 0.7 % [facility] Interpretation and review of laboratory results Abnormal [facility] Lymphocytes (Bld) [#/Vol] 2.49 10*3/uL 0.83 - 3.57 K/uL [facility] Lymphocytes/100 WBC (Bld) 24.1 % [facility] MCH (RBC) [Entitic mass] 30.7 pg 26.1 - 33.3 pg [facility] MCHC (RBC) [Mass/Vol] 33.1 g/dL 31.9 - 36.5 g/dL [facility] MCV (RBC) [Entitic vol] 92.6 fL 79.0 - 94.5 fL [facility] Monocytes (Bld) [#/Vol] 0.83 10*3/uL 0.24 - 0.93 K/uL [facility] Monocytes/100 WBC (Bld) 8.0 % [facility] Neutrophils (Bld) [#/Vol] 6.65 10*3/uL High 1.57 - 6.19 K/uL [facility] Nucleated RBC/100 WBC (Bld) [Ratio] 0.0 % NINF [facility] Platelet mean volume (Bld) [Entitic vol] 11.5 fL 8.7 - 12.3 fL [facility] Platelets (Bld) [#/Vol] 252 10*3/uL 146 - 337 K/uL [facility] RBC (Bld) [#/Vol] 4.73 10*6/uL [facility] Segmented neutrophils/100 WBC (Bld) 64.4 % [facility] WBC (Bld) [#/Vol] 10.33 10*3/uL High 3.73 - 10.10 K/uL [facility] CHM 7 - EDon 09-26-2023 Anion gap [Moles/Vol] 12 mmol/L 7 - 17 mmol/L [facility] Chloride [Moles/Vol] 103 mmol/L 98 - 10 8 mmol/L [facility] CO2 [Moles/Vol] 24 mmol/L 21 - 31 mmol/L [facility] Creatinine [Mass/Vol] 0.88 mg/dL 0.70 - 1.30 mg/dL [facility] eGFR, CKD-EPI, Male - PINF [facility] Comment on above: Reported eGFR is bas ed on the CKD-EPI 2020 equation using creatinine, age, and sex. Glucose [Mass/Vol] 97 mg/dL 70 - 99 mg/dL [facility] Osmolality Calc [Osmolality] 285 [facility] Potassium [Moles/Vol] 4.1 mmol/L 3.5 - 5.0 mmol/L [facility] Sodium [Moles/Vol] 135 mmol/L 135 - 145 mmol/L [facility] Urea nitrogen [Mass/Vol] 18 mg/dL 7 - 25 mg/dL [facility] Urea nitrogen/Creatinine [Mass ratio] 20 mg/mg [facility] CT Head limitedon 09-26-2023 IMPRESSION: 1. [...] approved this report. OLOGY EXAM: CT STROKE HEAD-STROKE ALERT ONLY, 09/26/2023 9:53 PM COMPARISON: CTA outside hospital same day CLINICAL INDICATIONS: 58 years Male Suspected Stroke; RELEVANT CLINICAL HISTORY: TECHNIQUE: A series of transaxial computerized tomographic images are obtained from base of skull to vertex without intravenous contrast. Axial whole-head and thin section posterior fossa slices are provided. Reformats: Sagittal and coronal. FINDINGS: Kunz-white matter differentiation is preserved. No acute large [...] are provided. Reformats: Sagittal and coronal. FINDINGS: Kunz-white matter differentiation is preserved. No acute large [...] I have reviewed and approved this report. [facility] Radiology Study observation (narrative) [facility] CT Head limitedOrdered By: Marilyn Soares on 09-26-2023 [facility] Work Phone: GLUCOSE POCon 09-26-2023 Glucose [Mass/Vol] 87 mg/dL 70 - 99 mg/dL [facility] POC Sample Type CAPBL [facility] Test performed at ad dress of the patient encounter. [facility] HEPATIC FUNCTION PANELon Albumin [Mass/Vol] 4.4 g/dL 3.5 - 5.0 g/dL [facility] ALP [Catalytic activity/Vol] 77 U/L 32 - 126 U/L [facility] ALT [Catalytic activity/Vol] 30 U/L 10 - 52 U/L [facility] AST [Catalytic activity/Vol] 24 U/L 10 - 39 U/L [facility] Bilirubin [Mass/Vol] 0.6 mg/dL NINF - 1.5 mg/dL [facility] Bilirubin.direct [Mass/Vol] 0.1 mg/dL NINF - 0.3 mg/dL [facility] Protein [Mass/Vol] 7.5 g/dL 6.4 - 8.3 g/dL [facility] HIGH SENSITIVITY TROPONIN I - SINGLE ORDERon 09-26-2023 Interpretation and review of laboratory results Normal [facility] Troponin I.cardiac High sensitivity method [Mass/Vol] 3 ng/L NINF - 53 ng/L [facility] MAGNESIUMon 09-26-2023 Magnesium [Mass/Vol] 1.9 mg/dL 1.6 - 2 .6 mg/dL [facility] No Panel Informationon 09-25 Interpretation and review of laboratory results Normal [facility] PHOSPHATE, INORGANICon 09-25 Phosphate [Mass/Vol] 3.4 mg/dL 2.2 - 4 .6 mg/dL [facility] PTINR-STROKEon 09-26-2023 INR Coag (Bld) [Relative time] 1.0 {INR} 0.9 - 1.1 [facility] PT Coag (PPP) [Time] 12.7 s [facility] PTTon 09-26-2023 aPTT Coag (PPP) [Time] 31.2 s [facility] Interpretation and review of laboratory results Normal [facility] CBC W Auto Differential pane l (Bld)on 09-14-2023 Basophils (Bld) [#/Vol] 0.03 10*3/uL <0.11 k/uL [facility] Basophils/100 WBC (Bld) 0.3 % [facility] Differential cell count method Nom (Bld) Auto [facility] Eosinophils (Bld) [#/Vol] 0.18 10*3/uL <0.46 k/uL [facility] Eosinophils/100 WBC (Bld) 1.7 % [facility] Erythrocyte distribution width (RBC) [Ratio] 13.0 % 11.5 - 15.0 % [facility] Hematocrit (Bld) [Volume fraction] 46.0 % 39.0 - 51.0 % [facility] Hemoglobin (Bld) [Mass/Vol] 15.0 g/dL 13.0 - 17.0 g/dL [facility] Immature granulocytes (Bld) [#/Vol] 0.05 10*3/uL <0.10 k/uL [facility] Immature granulocytes/100 WBC (Bld) 0.5 % [facility] Lymphocytes (Bld) [#/Vol] 2.03 10*3/uL 1.00 - 4.00 k/uL [facility] Lymphocytes/100 WBC (Bld) 19.3 % [facility] MCH (RBC) [Entitic mass] 30.1 pg 26.0 - 34.0 pg [facility] MCHC (RBC) [Mass/Vol] 32.6 g/dL 30.5 - 36.0 g/dL [facility] MCV (RBC) [Entitic vol] 92.4 fL 80.0 - 100.0 fL [facility] Monocytes (Bld) [#/Vol] 0.78 10*3/uL <0.87 k/uL [facility] Monocytes/100 WBC (Bld) 7.4 % [facility] Neutrophils (Bld) [#/Vol] 7.45 10*3/uL 1.45 - 7.50 k/uL [facility] Neutrophils/100 WBC (Bld) 70.8 % [facility] Nucleated RBC (Bld) [#/Vol] <0.01 k/uL [facility] Nucleated RBC/100 WBC (Bld) [Ratio] 0.0 /100 WBC [facility] Platelet mean volume (Bld) [Entitic vol] 12.0 fL 9.0 - 12.7 fL [facility] Platelets (Bld) [#/Vol] 262 10*3/uL 150 - 400 k/uL [facility] RBC (Bld) [#/Vol] 4.98 10*6/uL 4.20 - 6.0 0 m/uL [facility] WBC (Bld) [#/Vol] 10.52 10*3/uL 3.70 - 11.00 k/uL [facility] PSA SerPl-mCncon 09-12-2023 Prostate specific Ag [Mass/Vol] 2.01 ng/mL Normal <2.60 [facility] Comment on above: Order Comment: Speci men Type: BLOOD SPECIMEN Ordering Facility: [facility] Address: [address] [place] [address] Result Comment: Tota l PSA test methodology used is the Electrochemiluminescence Immunoassay by [employer]. Total PSA values by differing methodologies cannot be interchanged. Performed By: #### 2 [id number] #### [facility] CLIA [id number] [address] [place] [address] [place] [address] [place] XR Chest PA and Lateralon IMPRESSION: No acute findings in the chest. Gi Asst: MARTIN Transcribe Date/Time: Jul 31 2023 1:42P Dictated by : ADA TAYLOR MD This examination was interpreted and the report reviewed and electronically signed by: ADA TAYLOR MD on Jul 31 2023 1:46PM [facility] DIVISION OF RADIOLOGY * * *Final Report* [...] DIVISION OF RADIOLOGY Provider, [facility] Jermaine Thomas - 07/31/2023 * * [...] IMPRESSION: No acute findings in the chest. Gi Asst: PSCB Transcribe Date/Time: Jul 31 2023 1:42P Dictated by : ADA TAYLOR MD This examination was interpreted and the report reviewed and electronically signed by: ADA TAYLOR MD on Jul 31 2023 1:46PM EST [facility] Radiology Study observation (narrative) [facility] XR Chest PA and LateralOrder ed By: Ccf Provider on 07-31-2023 [facility] UA DIP, URINE (POC)on 2022 BILIRUBIN UA (POCT) Negative Negative [facility] CLARITY UA (POCT) Cloudy [facility] COLOR UA (POCT) Yellow [facility] GLUCOSE UA (POCT) Negative Negative mg/dL [facility] Hemoglobin Ql (U) Small Abnormal Negative [facility] KETONE UA (POCT) Negative Negative mg/dL [facility] LEUKOCYTES UA (POCT) Small Abnormal Negative [facility] NITRITE UA (POCT) Negative Negative [facility] PH UA (POCT) 7.0 4.5 - 8.0 [facility] Protein Ql (U) 30 mg/dL Abnormal Negative mg/dL [facility] SPECIFIC GRAVITY UA (POCT) 1.015 1.005 - 1.030 [facility] UROBILINOGEN UA (POCT) 0.2 E.U./dL Arti l E.U./dL [facility] TSH BLDon 06-08-2022 TSH Qn 0.058 m[IU]/L Low 0.270 - 4.200 mIU/L [facility] VITAMIN D 25 HYDROXYon 06-08 25-hydroxyvitamin D3 [Mass/Vol] 28.5 ng/mL Low 31.0 - 80.0 ng/mL [facility] XR PELVIS 1V APon 01-14-2022 [facility] XR HIP BILAT 5V PEL/AP/LAT E ACH HIPon 03-18-2021 IMPRESSION: No acute osseous findings bilateral hips. Minimal bilateral hip osteoarthritis. Gi Asst: MARTIN Transcribe Date/Time: Mar 18 2021 2:19P Dictated by : ROB OHARA MD This examination was interpreted and the report reviewed and electronically signed by: ROB OHARA MD on Mar 18 2021 2:20PM [facility] DIVISION OF RADIOLOGY * * *Final Report* [...] DIVISION OF RADIOLOGY Provider, [facility] Jermaine crowley Pierpont - 03/18/2021 * * *Final Report* * [...] findings bilateral hips. Minimal bilateral hip osteoarthritis. Gi Asst: PSCB Transcribe Date/Time: Mar 18 2021 2:19P Dictated by : ROB OHARA MD This examination was interpreted and the report reviewed and electronically signed by: ROB OHARA MD on Mar 18 2021 2:20PM EST [facility] Radiology Study observation (narrative) [facility] XR HIP BILAT 5V PEL/AP/LAT E ACH HIPOrdered By: Ccf Provider on 03-18-2021 [facility] Basic Panelon 02-11-2019 Creatinine [Mass/Vol] 1.02 mg/dL Normal 0.67-1.17 [facility] Comment on above: Performed By: #### P 8 #### [facility] [address] [place], [place] [address] Anion gap [Moles/Vol] 9 mmol/L Normal 8-16 [facility] Comment on above: Performed By: #### P 8 #### [facility] [address] [place], [place] [address] Calcium [Mass/Vol] 8.6 mg/dL Normal 8.5-10.1 [facility] Comment on above: Performed By: #### P 8 #### [facility] [address] [place], [place] [address] CO2 [Moles/Vol] 29 mmol/L Normal 21-32 [facility] Comment on above: Performed By: #### P 8 #### [facility] [address] [place], [place] [address] Glucose [Mass/Vol] 82 mg/dL Normal 70-99 [facility] Comment on above: Performed By: #### P 8 #### [facility] [address] [place], [place] [address] Urea nitrogen [Mass/Vol] 12 mg/dL Normal 7-18 [facility] Comment on above: Performed By: #### P 8 #### [facility] [address] [place], [place] [address] Chloride [Moles/Vol] 103 mmol/L Normal 98-107 [facility] Comment on above: Performed By: #### P 8 #### [facility] [address] [place], [place] [address] Potassium [Moles/Vol] 4.3 mmol/L Normal 3.5-5.1 [facility] Comment on above: Performed By: #### P 8 #### [facility] [address] [place], [place] [address] Sodium [Moles/Vol] 137 mmol/L Normal 136-145 [facility] Comment on above: Performed By: #### P 8 #### [facility] [address] [place], [place] [address] MDRD GFRon 02-11-2019 GFR/1.73 sq M predicted among non-blacks MDRD (S/P/Bld) [Vol rate/Area] mL/min/{1.73_m2} Normal >60mL/min/1 .73m2 [facility] Comment on above: Result Comment: If t he patient is , multiply the result by 1.210. Performed By: #### G FR #### [facility] [address] [place] [address] Hemogramon 02-10-2019 Erythrocyte distribution width (RBC) [Ratio] 14.9 % High 11.6-14.4 [facility] Comment on above: Performed By: #### C BC1 #### [address] [address] Hematocrit (Bld) [Volume fraction] 44.2 % Normal 40.1-51.0 [facility] Comment on above: Performed By: #### C BC1 #### [address] [address] Hemoglobin (Bld) [Mass/Vol] 14.4 g/dL Normal 13.7-17.5 [facility] Comment on above: Performed By: #### C BC1 #### [facility] [address] [place] [address] MCH (RBC) [Entitic mass] 30.7 pg Normal 25.7-32.2 [facility] Comment on above: Performed By: #### C BC1 #### [facility] [address] [place], [place] [address] MCHC (RBC) [Mass/Vol] 32.6 % Normal 32.3-36.5 [facility] Comment on above: Performed By: #### C BC1 #### [address] [place] [address] MCV (RBC) [Entitic vol] 94.2 fL Normal 83.2-95.6 [facility] Comment on above: Performed By: #### C BC1 #### [facility] [address] [place] [address] Platelet mean volume (Bld) [Entitic vol] 10.7 fL Normal 8.7-12.0 [facility] Comment on above: Performed By: #### C BC1 #### [facility] [address] [place] [id number] Platelets (Bld) [#/Vol] 225 thou/cmm Normal 141-365 [facility] Comment on above: Performed By: #### C BC1 #### [facility] [address] [place] [address] RBC (Bld) [#/Vol] 4.69 mil/cmm Normal 4.63-6.08 [facility] Comment on above: Performed By: #### C BC1 #### [facility] [address] [place] [address] RDW SD 51.5 fl High 36.1-45.8 [facility] Comment on above: Performed By: #### C BC1 #### [facility] [address] [place] [address] WBC (Bld) [#/Vol] 10.16 thou/cmm High 4.23-9.07 [facility] Comment on above: Performed By: #### C BC1 #### [facility] [address] [place] [id number] Vital Signs Date Time Vital Sign Value Performing Clinician Facility 03-28-2025 10:45-0400 Diastolic blood pressure 69 mm[Hg] Ino Esqueda 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 Work Phone: [facility] 03-28-2025 10:45-0400 Heart rate 72 /min Ino Esqueda APRN.CNP Work Phone: [facility] 03-28-2025 10:45-0400 SaO2% (BldA) [Mass fraction] 96 % Ino Esqueda APRN.CNP Work Phone: [facility] 03-28-2025 10:45-0400 Systolic blood pressure 107 mm[Hg] Ino Esqueda MORTUARY BEAUTICIAN.PLUG MACHINE OPERATOR Work Phone: [facility] 03-18-2025 11:47-0400 Body mass index (BMI) [Ratio] 35.22 kg/m2 Ino Esqueda MORTUARY BEAUTICIAN.PLUG MACHINE OPERATOR Work Phone: [facility] 03-18-2025 11:47-0400 Body weight 96 kg Ino Esqueda MORTUARY BEAUTICIAN.PLUG MACHINE OPERATOR Work Phone: [facility] 03-18-2025 11:47-0400 Diastolic blood pressure 66 mm[Hg] Ino Esqueda MORTUARY BEAUTICIAN.PLUG MACHINE OPERATOR Work Phone: [facility] 03-18-2025 11:47-0400 Heart rate 56 /min Ino Esqueda MORTUARY BEAUTICIAN.PLUG MACHINE OPERATOR Work Phone: [facility] 03-18-2025 11:47-0400 Systolic blood pressure 110 mm[Hg] Ino Esqueda MORTUARY BEAUTICIAN.PLUG MACHINE OPERATOR Work Phone: [facility] 01-29-2025 21:00-0400 Body height 165.[address] Mathew Cobian MD Work Phone: [facility] 01-29-2025 21:00-0400 Body mass index (BMI) [Ratio] 35.8 kg/m2 Dr. Mathew Cobian MD Work Phone: [facility] 01-29-2025 21:00-0400 Body temperature 98.4 [degF] Dr. Mathew Cobian MD Work Phone: [facility] 01-29-2025 21:00-0400 Body weight 97.[address] Mathew Cobian MD Work Phone: [facility] 01-29-2025 21:00-0400 Diastolic blood pressure 82 mm[Hg] Dr. Mathew Cobian MD Work Phone: [facility] 01-29-2025 21:00-0400 Heart rate 76 /min Dr. Mathew Cobian MD Work Phone: [facility] 01-29-2025 21:00-0400 Respiratory rate 16 /min Dr. Mathew Cobian MD Work Phone: [facility] 01-29-2025 21:00-0400 SaO2% (BldA) [Mass fraction] 97 % Dr. Mathew Cobian MD Work Phone: [facility] 01-29-2025 21:00-0400 Systolic blood pressure 134 mm[Hg] Dr. Mathew Cobian MD Work Phone: [facility] 01-28-2025 09:37-0400 Body mass index (BMI) [Ratio] 36.32 kg/m2 Ino Esqueda 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 Work Phone: [facility] 01-28-2025 09:37-0400 Body weight 99 kg Ino Esqueda 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 Work Phone: [facility] 01-28-2025 09:37-0400 Diastolic blood pressure 73 mm[Hg] Ino Esqueda 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 Work Phone: [facility] 01-28-2025 09:37-0400 Heart rate 65 /min Ino Esqueda 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 Work Phone: [facility] 01-28-2025 09:37-0400 Systolic blood pressure 113 mm[Hg] Ino Esqueda 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 Work Phone: [facility] 01-27-2025 09:23-0400 Body mass index (BMI) [Ratio] 37.02 kg/m2 Mega Loja PA-C Work Phone: [facility] 01-27-2025 09:23-0400 Body temperature 97.81 [degF] Mega Loja PA-C Work Phone: [facility] 01-27-2025 09:23-0400 Body weight 100.9 kg Mega Loja PA-C Work Phone: [facility] 01-27-2025 09:23-0400 Diastolic blood pressure 80 mm[Hg] Mega Ramosley PA-C Work Phone: [facility] 01-27-2025 09:23-0400 Heart rate 78 /min Mega Ramosley PA-C Work Phone: [facility] 01-27-2025 09:23-0400 Respiratory rate 18 /min Mega Purvi PA-C Work Phone: [facility] 01-27-2025 09:23-0400 SaO2% (BldA) [Mass fraction] 94 % Mega Purvi PA-C Work Phone: [facility] 01-27-2025 09:23-0400 Systolic blood pressure 124 mm[Hg] Mega Purvi PA-C Work Phone: [facility] 01-21-2025 02:33-0400 Body temperature 98.1 [degF] Dr. Mathew Cobian MD Work Phone: [facility] 01-21-2025 02:33-0400 Diastolic blood pressure 80 mm[Hg] Dr. Mathew Cobian MD Work Phone: [facility] 01-21-2025 02:33-0400 Heart rate 59 /min Dr. Mathew Cobian MD Work Phone: [facility] 01-21-2025 02:33-0400 Respiratory rate 19 /min Dr. Mathew Cobian MD Work Phone: [facility] 01-21-2025 02:33-0400 SaO2% (BldA) [Mass fraction] 96 % Dr. Mathew Cobian MD Work Phone: [facility] 01-21-2025 02:33-0400 Systolic blood pressure 120 mm[Hg] Dr. Mathew Cobian MD Work Phone: [facility] 01-20-2025 22:57-0400 Body mass index (BMI) [Ratio] 37.5 kg/m2 Dr. Mathew Cobian MD Work Phone: [facility] 01-20-2025 22:57-0400 Body weight 102.[address] Mathew Cobian MD Work Phone: [facility] 01-20-2025 22:56-0400 Body height 165.[address] Mathew Cobian MD Work Phone: [facility] 01-17-2025 10:23-0400 Diastolic blood pressure 66 mm[Hg] Inoprema Esqueda MORTUARY BEAUTICIAN.PLUG MACHINE OPERATOR Work Phone: [facility] 01-17-2025 10:23-0400 Heart rate 69 /min Ino Duglas MORTUARY BEAUTICIAN.PLUG MACHINE OPERATOR Work Phone: [facility] 01-17-2025 10:23-0400 Systolic blood pressure 117 mm[Hg] Ino Duglas MORTUARY BEAUTICIAN.PLUG MACHINE OPERATOR Work Phone: [facility] 01-14-2025 10:26-0400 Body mass index (BMI) [Ratio] 37.05 kg/m2 Ino Esqueda MORTUARY BEAUTICIAN.PLUG MACHINE OPERATOR Work Phone: [facility] 01-14-2025 10:26-0400 Body weight 101 kg Ino Duglas MORTUARY BEAUTICIAN.PLUG MACHINE OPERATOR Work Phone: [facility] 01-14-2025 10:26-0400 Diastolic blood pressure 71 mm[Hg] Ino Jaredoble MORTUARY BEAUTICIAN.PLUG MACHINE OPERATOR Work Phone: [facility] 01-14-2025 10:26-0400 Heart rate 68 /min Ino Esqueda MORTUARY BEAUTICIAN.PLUG MACHINE OPERATOR Work Phone: [facility] 01-14-2025 10:26-0400 Systolic blood pressure 123 mm[Hg] Inoprema Esqueda MORTUARY BEAUTICIAN.PLUG MACHINE OPERATOR Work Phone: [facility] 12-25-2024 13:27-0400 Body mass index (BMI) [Ratio] 36.5 kg/m2 Greyson Ellsworth MORTUARY BEAUTICIAN.PLUG MACHINE OPERATOR Work Phone: [facility] 12-25-2024 13:27-0400 Body temperature 98.4 [degF] Greyson Ellsworth MORTUARY BEAUTICIAN.PLUG MACHINE OPERATOR Work Phone: [facility] 12-25-2024 13:27-0400 Body weight 99.5 kg Greyson Swank MORTUARY BEAUTICIAN.PLUG MACHINE OPERATOR Work Phone: [facility] 12-25-2024 13:27-0400 Diastolic blood pressure 70 mm[Hg] Greyson Swank MORTUARY BEAUTICIAN.PLUG MACHINE OPERATOR Work Phone: [facility] 12-25-2024 13:27-0400 Heart rate 67 /min Greyson Swank MORTUARY BEAUTICIAN.PLUG MACHINE OPERATOR Work Phone: [facility] 12-25-2024 13:27-0400 Respiratory rate 20 /min Greyson Swank MORTUARY BEAUTICIAN.PLUG MACHINE OPERATOR Work Phone: [facility] 12-25-2024 13:27-0400 SaO2% (BldA) [Mass fraction] 98 % Greyson Swank MORTUARY BEAUTICIAN.PLUG MACHINE OPERATOR Work Phone: [facility] 12-25-2024 13:27-0400 Systolic blood pressure 128 mm[Hg] Greyson Swank MORTUARY BEAUTICIAN.PLUG MACHINE OPERATOR Work Phone: [facility] 11-05-2024 20:19-0400 Body temperature 98 [degF] Dr. Mathew Cobian MD Work Phone: [facility] 11-05-2024 20:19-0400 Diastolic blood pressure 87 mm[Hg] Dr. Mathew Cobian MD Work Phone: [facility] 11-05-2024 20:19-0400 Heart rate 55 /min Dr. Mathew Cobian MD Work Phone: [facility] 11-05-2024 20:19-0400 Respiratory rate 18 /min Dr. Mathew Cobian MD Work Phone: [facility] 11-05-2024 20:19-0400 SaO2% (BldA) [Mass fraction] 97 % Dr. Mathew Cobian MD Work Phone: [facility] 11-05-2024 20:19-0400 Systolic blood pressure 125 mm[Hg] Dr. Mathew Cobian MD Work Phone: [facility] 11-05-2024 18:14-0400 Body height 165.[address] Mathew Cobian MD Work Phone: [facility] 11-05-2024 18:14-0400 Body mass index (BMI) [Ratio] 38.9 kg/m2 Dr. Mathew Cobian MD Work Phone: [phone] [place] [address] 11-05-2024 18:14-0400 Body weight 106.[address] Mathew Cobian MD Work Phone: [facility] 07-25-2024 10:46-0500 Diastolic blood pressure 84 mm[Hg] Mathew Cobian MD Work Phone: [facility] 07-25-2024 10:46-0500 Heart rate 64 /min Mathew Cobian MD Work Phone: [facility] 07-25-2024 10:46-0500 Respiratory rate 18 /min Mathew Cobian MD Work Phone: [facility] 07-25-2024 10:46-0500 Systolic blood pressure 132 mm[Hg] Mathew Cobian MD Work Phone: [facility] 07-22-2024 19:56-0500 Diastolic blood pressure 70 mm[Hg] Dr. Mathew Cobian MD Work Phone: [facility] 07-22-2024 19:56-0500 Heart rate 55 /min Dr. Mathew Cobian MD Work Phone: [facility] 07-22-2024 19:56-0500 Respiratory rate 16 /min Dr. Mathew Cobian MD Work Phone: [facility] 07-22-2024 19:56-0500 SaO2% (BldA) [Mass fraction] 98 % Dr. Mathew Cobian MD Work Phone: [facility] 07-22-2024 19:56-0500 Systolic blood pressure 122 mm[Hg] Dr. Mathew Cobian MD Work Phone: [facility] 07-22-2024 15:33-0500 Body temperature 98 [degF] Dr. Mathew Cobian MD Work Phone: [facility] 07-20-2024 17:20-0500 Diastolic Blood Pressure Non-Invasive 95 mm[Hg] KAE REICHFIELD DO [facility] 07-20-2024 17:20-0500 Heart rate 60 /min KAE REICHFIELD DO [facility] 07-20-2024 17:20-0500 Mean blood pressure 112 mm[Hg] KAE REICHFIELD DO [facility] 07-20-2024 17:20-0500 Respiratory rate 20 /min KAE REICHFIELD DO [facility] 07-20-2024 17:20-0500 Systolic Blood Pressure Non-Invasive 146 mm[Hg] KAE REICHFIELD DO [facility] 07-20-2024 14:33-0500 Body height 165.1 cm KAE REICHFIELD DO [facility] 07-20-2024 14:33-0500 Body temperature 98.06 [degF] KAE REICHFIELD DO [facility] 07-20-2024 14:33-0500 Body weight 100 kg KAE REICHFIELD DO [facility] 07-20-2024 14:33-0500 Diastolic Blood Pressure Non-Invasive 72 mm[Hg] KAE REICHFIELD DO [facility] 07-20-2024 14:33-0500 Heart rate 56 /min KAE REICHFIELD DO [facility] 07-20-2024 14:33-0500 Respiratory rate 20 /min KAE REICHFIELD DO [facility] 07-20-2024 14:33-0500 Systolic Blood Pressure Non-Invasive 127 mm[Hg] KAE BARBER DO [facility] 07-12-2024 10:48-0500 Body mass index (BMI) [Ratio] 36.61 kg/m2 Brian Daiana MORTUARY BEAUTICIAN.PLUG MACHINE OPERATOR Work Phone: [facility] 07-12-2024 10:48-0500 Body weight 99.79 kg Brian Daiana MORTUARY BEAUTICIAN.PLUG MACHINE OPERATOR Work Phone: [facility] 07-12-2024 10:48-0500 Diastolic blood pressure 88 mm[Hg] Brian Daiana MORTUARY BEAUTICIAN.PLUG MACHINE OPERATOR Work Phone: [facility] 07-12-2024 10:48-0500 Heart rate 67 /min Brian Daiana MORTUARY BEAUTICIAN.PLUG MACHINE OPERATOR Work Phone: [facility] 07-12-2024 10:48-0500 Respiratory rate 20 /min Brian Daiana MORTUARY BEAUTICIAN.PLUG MACHINE OPERATOR Work Phone: [facility] 07-12-2024 10:48-0500 SaO2% (BldA) [Mass fraction] 98 % Brian Daiana MORTUARY BEAUTICIAN.PLUG MACHINE OPERATOR Work Phone: [facility] 07-12-2024 10:48-0500 Systolic blood pressure 140 mm[Hg] Brian Daiana MORTUARY BEAUTICIAN.PLUG MACHINE OPERATOR Work Phone: [facility] 05-22-2024 11:38-0400 Diastolic blood pressure 72 mm[Hg] Jennifer Grayson MORTUARY BEAUTICIAN.PLUG MACHINE OPERATOR Work Phone: [facility] 05-22-2024 11:38-0400 Heart rate 68 /min Jennifer Grayson MORTUARY BEAUTICIAN.PLUG MACHINE OPERATOR Work Phone: [facility] 05-22-2024 11:38-0400 SaO2% (BldA) [Mass fraction] 97 % Jennifer Grayson MORTUARY BEAUTICIAN.PLUG MACHINE OPERATOR Work Phone: [facility] 05-22-2024 11:38-0400 Systolic blood pressure 111 mm[Hg] Jennifer Grayson MORTUARY BEAUTICIAN.PLUG MACHINE OPERATOR Work Phone: [facility] 05-17-2024 12:45-0400 Body mass index (BMI) [Ratio] 37.35 kg/m2 Prema Moomaw MORTUARY BEAUTICIAN.PLUG MACHINE OPERATOR Work Phone: [facility] 05-17-2024 12:45-0400 Body temperature 97.5 [degF] Prema Moomaw MORTUARY BEAUTICIAN.PLUG MACHINE OPERATOR Work Phone: [facility] 05-17-2024 12:45-0400 Body weight 101.8 kg Prema Moomaw MORTUARY BEAUTICIAN.PLUG MACHINE OPERATOR Work Phone: [facility] 05-17-2024 12:45-0400 Diastolic blood pressure 71 mm[Hg] Prema Moomaw MORTUARY BEAUTICIAN.PLUG MACHINE OPERATOR Work Phone: [facility] 05-17-2024 12:45-0400 Heart rate 54 /min Prema Moomaw MORTUARY BEAUTICIAN.PLUG MACHINE OPERATOR Work Phone: [facility] 05-17-2024 12:45-0400 Respiratory rate 20 /min Prema Moomaw MORTUARY BEAUTICIAN.PLUG MACHINE OPERATOR Work Phone: [facility] 05-17-2024 12:45-0400 SaO2% (BldA) [Mass fraction] 97 % Prema Moomaw MORTUARY BEAUTICIAN.PLUG MACHINE OPERATOR Work Phone: [facility] 05-17-2024 12:45-0400 Systolic blood pressure 110 mm[Hg] Prema Moomaw MORTUARY BEAUTICIAN.PLUG MACHINE OPERATOR Work Phone: [facility] 05-13-2024 10:45-0400 Diastolic blood pressure 59 mm[Hg] Gilson Finelli DO Work Phone: [facility] 05-13-2024 10:45-0400 Heart rate 41 /min Gilson Finelli DO Work Phone: [facility] 05-13-2024 10:45-0400 Respiratory rate 11 /min Gilson Finelli DO Work Phone: [facility] 05-13-2024 10:45-0400 SaO2% (BldA) [Mass fraction] 100 % Gilson Finelli DO Work Phone: [facility] 05-13-2024 10:45-0400 Systolic blood pressure 102 mm[Hg] Gilson Finelli DO Work Phone: [facility] 05-13-2024 09:36-0400 Body temperature 97.2 [degF] Gilson Finelli DO Work Phone: [facility] 05-08-2024 12:52-0400 Body mass index (BMI) [Ratio] 37.28 kg/m2 Gilson Finelli DO Work Phone: [facility] 05-08-2024 12:52-0400 Body weight 101.61 kg Gilson Finelli DO Work Phone: [facility] 05-08-2024 12:52-0400 Diastolic blood pressure 64 mm[Hg] Gilson Finelli DO Work Phone: [facility] 05-08-2024 12:52-0400 Heart rate 63 /min Gilson Finelli DO Work Phone: [facility] 05-08-2024 12:52-0400 SaO2% (BldA) [Mass fraction] 95 % Gilson Finelli DO Work Phone: [facility] 05-08-2024 12:52-0400 Systolic blood pressure 101 mm[Hg] Gilson Finelli DO Work Phone: [facility] 05-03-2024 10:34-0400 Body temperature 97.7 [degF] Brian Ahmadi APRN.CNP Work Phone: [facility] 05-03-2024 10:24-0400 Body mass index (BMI) [Ratio] 36.94 kg/m2 Brian Ahmadi APRN.CNP Work Phone: [facility] 05-03-2024 10:24-0400 Body weight 100.7 kg Brian Daiana MORTUARY BEAUTICIAN.PLUG MACHINE OPERATOR Work Phone: [facility] 05-03-2024 10:24-0400 Diastolic blood pressure 80 mm[Hg] Brian Daiana MORTUARY BEAUTICIAN.PLUG MACHINE OPERATOR Work Phone: [facility] 05-03-2024 10:24-0400 Heart rate 79 /min Brian Daiana MORTUARY BEAUTICIAN.PLUG MACHINE OPERATOR Work Phone: [facility] 05-03-2024 10:24-0400 Respiratory rate 20 /min Brian Daiana MORTUARY BEAUTICIAN.PLUG MACHINE OPERATOR Work Phone: [facility] 05-03-2024 10:24-0400 SaO2% (BldA) [Mass fraction] 98 % Brian Daiana MORTUARY BEAUTICIAN.PLUG MACHINE OPERATOR Work Phone: [facility] 05-03-2024 10:24-0400 Systolic blood pressure 120 mm[Hg] Brian Daiana MORTUARY BEAUTICIAN.PLUG MACHINE OPERATOR Work Phone: [facility] 04-30-2024 13:59-0400 Body temperature 97.7 [degF] Brian Daiana MORTUARY BEAUTICIAN.PLUG MACHINE OPERATOR Work Phone: [facility] 04-30-2024 13:17-0400 Body mass index (BMI) [Ratio] 37.77 kg/m2 Brian Daiana MORTUARY BEAUTICIAN.PLUG MACHINE OPERATOR Work Phone: [facility] 04-30-2024 13:17-0400 Body weight 102.97 kg Brian Daiana MORTUARY BEAUTICIAN.PLUG MACHINE OPERATOR Work Phone: [facility] 04-30-2024 13:17-0400 Diastolic blood pressure 76 mm[Hg] Brian Daiana MORTUARY BEAUTICIAN.PLUG MACHINE OPERATOR Work Phone: [facility] 04-30-2024 13:17-0400 Heart rate 64 /min Brian Daiana MORTUARY BEAUTICIAN.PLUG MACHINE OPERATOR Work Phone: [facility] 04-30-2024 13:17-0400 Respiratory rate 16 /min Brian Daiana MORTUARY BEAUTICIAN.PLUG MACHINE OPERATOR Work Phone: [facility] 04-30-2024 13:17-0400 SaO2% (BldA) [Mass fraction] 98 % Brian Daiana MORTUARY BEAUTICIAN.PLUG MACHINE OPERATOR Work Phone: [facility] 04-30-2024 13:17-0400 Systolic blood pressure 114 mm[Hg] Brian Daiana MORTUARY BEAUTICIAN.PLUG MACHINE OPERATOR Work Phone: [facility] 04-17-2024 09:38-0400 Body mass index (BMI) [Ratio] 38.37 kg/m2 Gypsybrandee Meridahof MORTUARY BEAUTICIAN.PLUG MACHINE OPERATOR Work Phone: [facility] 04-17-2024 09:38-0400 Body weight 104.6 kg Gypsybrandee Meridahof MORTUARY BEAUTICIAN.PLUG MACHINE OPERATOR Work Phone: [facility] 04-17-2024 09:38-0400 Diastolic blood pressure 80 mm[Hg] Gypsy Meridahof MORTUARY BEAUTICIAN.PLUG MACHINE OPERATOR Work Phone: [facility] 04-17-2024 09:38-0400 Heart rate 68 /min Gypsybrandee Meridahof MORTUARY BEAUTICIAN.PLUG MACHINE OPERATOR Work Phone: [facility] 04-17-2024 09:38-0400 Respiratory rate 16 /min Gypsy Magnoliahof MORTUARY BEAUTICIAN.PLUG MACHINE OPERATOR Work Phone: [facility] 04-17-2024 09:38-0400 SaO2% (BldA) [Mass fraction] 97 % Gypsybrandee Meridahof MORTUARY BEAUTICIAN.PLUG MACHINE OPERATOR Work Phone: [facility] 04-17-2024 09:38-0400 Systolic blood pressure 122 mm[Hg] Gypsy Tannhof MORTUARY BEAUTICIAN.PLUG MACHINE OPERATOR Work Phone: [facility] 04-12-2024 10:22-0400 Body mass index (BMI) [Ratio] 38.11 kg/m2 Brian Daiana MORTUARY BEAUTICIAN.PLUG MACHINE OPERATOR Work Phone: [facility] 04-12-2024 10:22-0400 Body weight 103.87 kg Brian Daiana MORTUARY BEAUTICIAN.PLUG MACHINE OPERATOR Work Phone: [facility] 04-12-2024 10:22-0400 Diastolic blood pressure 70 mm[Hg] Brian Daiana MORTUARY BEAUTICIAN.PLUG MACHINE OPERATOR Work Phone: [facility] 04-12-2024 10:22-0400 Heart rate 61 /min Brian Daiana MORTUARY BEAUTICIAN.PLUG MACHINE OPERATOR Work Phone: [facility] 04-12-2024 10:22-0400 Respiratory rate 16 /min Brian Daiana MORTUARY BEAUTICIAN.PLUG MACHINE OPERATOR Work Phone: [facility] 04-12-2024 10:22-0400 SaO2% (BldA) [Mass fraction] 98 % Brian Daiana MORTUARY BEAUTICIAN.PLUG MACHINE OPERATOR Work Phone: [facility] 04-12-2024 10:22-0400 Systolic blood pressure 112 mm[Hg] Brian Daiana MORTUARY BEAUTICIAN.PLUG MACHINE OPERATOR Work Phone: [facility] 03-15-2024 10:23-0400 Diastolic blood pressure 68 mm[Hg] Brian Daiana MORTUARY BEAUTICIAN.PLUG MACHINE OPERATOR Work Phone: [facility] 03-15-2024 10:23-0400 Heart rate 62 /min Brian Daiana MORTUARY BEAUTICIAN.PLUG MACHINE OPERATOR Work Phone: [facility] 03-15-2024 10:23-0400 Respiratory rate 16 /min Brian Daiana MORTUARY BEAUTICIAN.PLUG MACHINE OPERATOR Work Phone: [facility] 03-15-2024 10:23-0400 SaO2% (BldA) [Mass fraction] 95 % Brian Daiana MORTUARY BEAUTICIAN.PLUG MACHINE OPERATOR Work Phone: [facility] 03-15-2024 10:23-0400 Systolic blood pressure 124 mm[Hg] Brian Daiana MORTUARY BEAUTICIAN.PLUG MACHINE OPERATOR Work Phone: [facility] 03-12-2024 11:20-0400 Body height 165.1 cm Raphael Calderon Jr., MD Work Phone: [facility] 03-12-2024 11:20-0400 Body mass index (BMI) [Ratio] 38.11 kg/m2 Raphael Calderon Jr., MD Work Phone: [facility] 03-12-2024 11:20-0400 Body weight 103.87 kg Raphael Calderon Jr., MD Work Phone: [facility] 02-17-2024 11:53-0400 Body mass index (BMI) [Ratio] 38.7 kg/m2 Geovanna Steele 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 Work Phone: [facility] 02-17-2024 11:53-0400 Body temperature 96.91 [degF] Geovanna Steele 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 Work Phone: [facility] 02-17-2024 11:53-0400 Body weight 105.5 kg Geovanna Steele 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 Work Phone: [facility] 02-17-2024 11:53-0400 Diastolic blood pressure 74 mm[Hg] Geovanna Steele 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 Work Phone: [facility] 02-17-2024 11:53-0400 Heart rate 75 /min Geovanna Steele 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 Work Phone: [facility] 02-17-2024 11:53-0400 Respiratory rate 21 /min Geovanna Steele 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 Work Phone: [facility] 02-17-2024 11:53-0400 SaO2% (BldA) [Mass fraction] 98 % Geovanna Steele 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 Work Phone: [facility] 02-17-2024 11:53-0400 Systolic blood pressure 120 mm[Hg] Geovanna Steele 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 Work Phone: [facility] 12-14-2023 10:58-0400 Body mass index (BMI) [Ratio] 37.81 kg/m2 Gypsy Ayala 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 Work Phone: [facility] 12-14-2023 10:58-0400 Body weight 103.06 kg Gypsy Ayala 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 Work Phone: [facility] 12-14-2023 10:58-0400 Diastolic blood pressure 70 mm[Hg] Gypsy Tannhof MORTUARY BEAUTICIAN.PLUG MACHINE OPERATOR Work Phone: [facility] 12-14-2023 10:58-0400 Heart rate 63 /min Gypsy Tannhof MORTUARY BEAUTICIAN.PLUG MACHINE OPERATOR Work Phone: [facility] 12-14-2023 10:58-0400 Respiratory rate 16 /min Gypsy Tannhof MORTUARY BEAUTICIAN.PLUG MACHINE OPERATOR Work Phone: [facility] 12-14-2023 10:58-0400 SaO2% (BldA) [Mass fraction] 97 % Gypsy Tannhof MORTUARY BEAUTICIAN.PLUG MACHINE OPERATOR Work Phone: [facility] 12-14-2023 10:58-0400 Systolic blood pressure 118 mm[Hg] Gypsy Tannhof MORTUARY BEAUTICIAN.PLUG MACHINE OPERATOR Work Phone: [facility] 11-01-2023 14:16-0400 Body temperature 97.39 [degF] Barbara Quarles MORTUARY BEAUTICIAN.PLUG MACHINE OPERATOR Work Phone: [facility] 11-01-2023 14:16-0400 Body weight 101.1 kg Barbara Quarles MORTUARY BEAUTICIAN.PLUG MACHINE OPERATOR Work Phone: [facility] 11-01-2023 14:16-0400 Diastolic blood pressure 70 mm[Hg] Barbara Quarles MORTUARY BEAUTICIAN.PLUG MACHINE OPERATOR Work Phone: [facility] 11-01-2023 14:16-0400 Heart rate 78 /min Barbara Quarles MORTUARY BEAUTICIAN.PLUG MACHINE OPERATOR Work Phone: [facility] 11-01-2023 14:16-0400 Respiratory rate 21 /min Barbara Quarles MORTUARY BEAUTICIAN.PLUG MACHINE OPERATOR Work Phone: [facility] 11-01-2023 14:16-0400 SaO2% (BldA) [Mass fraction] 98 % Barbara Quarles MORTUARY BEAUTICIAN.PLUG MACHINE OPERATOR Work Phone: [facility] 11-01-2023 14:16-0400 Systolic blood pressure 120 mm[Hg] Barbara Quarles MORTUARY BEAUTICIAN.PLUG MACHINE OPERATOR Work Phone: [facility] 10-17-2023 10:08-0400 Body weight 102.97 kg Mathew Cobian MD Work Phone: [facility] 10-17-2023 10:08-0400 Diastolic blood pressure 72 mm[Hg] Mathew Cobian MD Work Phone: [facility] 10-17-2023 10:08-0400 Heart rate 86 /min Mathew Cobian MD Work Phone: [facility] 10-17-2023 10:08-0400 Respiratory rate 16 /min Mathew Cobian MD Work Phone: [facility] 10-17-2023 10:08-0400 SaO2% (BldA) [Mass fraction] 98 % Mathew Cobian MD Work Phone: [facility] 10-17-2023 10:08-0400 Systolic blood pressure 120 mm[Hg] Mathew Cobian MD Work Phone: [facility] 09-29-2023 11:50-0500 Body temperature 98.4 [degF] Evan Burnham MD Work Phone: [facility] 09-29-2023 11:50-0500 Diastolic blood pressure 64 mm[Hg] Evan Burnham MD Work Phone: [facility] 09-29-2023 11:50-0500 Heart rate 56 /min Evan Burnham MD Work Phone: [facility] 09-29-2023 11:50-0500 Respiratory rate 20 /min Evan Burnham MD Work Phone: [facility] 09-29-2023 11:50-0500 SaO2% (BldA) [Mass fraction] 94 % Evan Burnham MD Work Phone: [facility] 09-29-2023 11:50-0500 Systolic blood pressure 131 mm[Hg] Evan Burnham MD Work Phone: [facility] 09-27-2023 02:14-0500 Body height 165.1 cm Evan Burnham MD Work Phone: [facility] 09-27-2023 02:14-0500 Body mass index (BMI) [Ratio] 35.78 kg/m2 Evan Burnham MD Work Phone: [facility] 09-27-2023 02:14-0500 Body weight 97.52 kg Evan Burnham MD Work Phone: [facility] 09-14-2023 12:20-0500 Body weight 100.25 kg Gypsy Ayala MORTUARY BEAUTICIAN.PLUG MACHINE OPERATOR Work Phone: [facility] 09-14-2023 12:20-0500 Diastolic blood pressure 68 mm[Hg] Gypsy Ayala MORTUARY BEAUTICIAN.PLUG MACHINE OPERATOR Work Phone: [facility] 09-14-2023 12:20-0500 Heart rate 64 /min Gypsy Ayala MORTUARY BEAUTICIAN.PLUG MACHINE OPERATOR Work Phone: [facility] 09-14-2023 12:20-0500 Respiratory rate 16 /min Gypsy Ayala MORTUARY BEAUTICIAN.PLUG MACHINE OPERATOR Work Phone: [facility] 09-14-2023 12:20-0500 SaO2% (BldA) [Mass fraction] 97 % Gypsy Ayala MORTUARY BEAUTICIAN.PLUG MACHINE OPERATOR Work Phone: [facility] 09-14-2023 12:20-0500 Systolic blood pressure 112 mm[Hg] Gypsy Ayala MORTUARY BEAUTICIAN.PLUG MACHINE OPERATOR Work Phone: [facility] 04-12-2023 19:25-0400 Body temperature 99.3 [degF] Geovanna Steele 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 Work Phone: [facility] 04-12-2023 19:25-0400 Body weight 105.51 kg Geovanna Steele 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 Work Phone: [facility] 04-12-2023 19:25-0400 Diastolic blood pressure 72 mm[Hg] Geovanna Steele 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 Work Phone: [facility] 04-12-2023 19:25-0400 Heart rate 85 /min Geovanna Steele MORTUARY BEAUTICIAN.PLUG MACHINE OPERATOR Work Phone: [facility] 04-12-2023 19:25-0400 Respiratory rate 21 /min Geovanna Steele 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 Work Phone: [facility] 04-12-2023 19:25-0400 SaO2% (BldA) [Mass fraction] 98 % Geovanna Steele MORTUARY BEAUTICIAN.PLUG MACHINE OPERATOR Work Phone: [facility] 04-12-2023 19:25-0400 Systolic blood pressure 114 mm[Hg] Geovanna Steele MORTUARY BEAUTICIAN.PLUG MACHINE OPERATOR Work Phone: [facility] 12-20-2022 10:16-0400 Body weight 100.61 kg Brian Ahmadi MORTUARY BEAUTICIAN.PLUG MACHINE OPERATOR Work Phone: [facility] 12-20-2022 10:16-0400 Diastolic blood pressure 82 mm[Hg] Brian Daiana MORTUARY BEAUTICIAN.PLUG MACHINE OPERATOR Work Phone: [facility] 12-20-2022 10:16-0400 Heart rate 61 /min Brian Daiana MORTUARY BEAUTICIAN.PLUG MACHINE OPERATOR Work Phone: [facility] 12-20-2022 10:16-0400 Respiratory rate 16 /min Brian Ahmadi MORTUARY BEAUTICIAN.PLUG MACHINE OPERATOR Work Phone: [facility] 12-20-2022 10:16-0400 SaO2% (BldA) [Mass fraction] 96 % Brianluis Ahmadi MORTUARY BEAUTICIAN.PLUG MACHINE OPERATOR Work Phone: [facility] 12-20-2022 10:16-0400 Systolic blood pressure 128 mm[Hg] Brian Daiana MORTUARY BEAUTICIAN.PLUG MACHINE OPERATOR Work Phone: [facility] 06-07-2022 14:36-0500 Body weight 97.8 kg Mathew Cobian MD Work Phone: [facility] 06-07-2022 14:36-0500 Diastolic blood pressure 76 mm[Hg] Mathew Cobian MD Work Phone: [facility] 06-07-2022 14:36-0500 Heart rate 72 /min Mathew Cobian MD Work Phone: [facility] 06-07-2022 14:36-0500 Respiratory rate 16 /min Mathew Cobian MD Work Phone: [facility] 06-07-2022 14:36-0500 Systolic blood pressure 124 mm[Hg] Mathew Cobian MD Work Phone: [facility] 02-27-2022 12:26-0400 Body height 165.1 cm [facility] Work Phone: 02-27-2022 12:26-0400 Body mass index (BMI) [Ratio] 35.7 kg/m2 [facility] Work Phone: 02-27-2022 12:26-0400 Body temperature 98.7 [degF] [facility] Work Phone: 02-27-2022 12:26-0400 Body weight 97.52 kg [facility] Work Phone: 02-27-2022 12:26-0400 Diastolic blood pressure 81 mm[Hg] [facility] Work Phone: 02-27-2022 12:26-0400 Heart rate 82 /min [facility] Work Phone: 02-27-2022 12:26-0400 Respiratory rate 18 /min [facility] Work Phone: 02-27-2022 12:26-0400 SaO2% (BldA) [Mass fraction] 98 % [facility] Work Phone: 02-27-2022 12:26-0400 Systolic blood pressure 148 mm[Hg] [facility] Work Phone: 01-14-2022 11:08-0400 Body temperature 97.39 [degF] Hardik Spain DO Work Phone: [facility] 01-14-2022 11:08-0400 Body weight 101.15 kg Hardik Spain DO Work Phone: [facility] 01-14-2022 11:08-0400 Diastolic blood pressure 76 mm[Hg] Hardik Spain DO Work Phone: [facility] 01-14-2022 11:08-0400 Heart rate 68 /min Hardik Spain DO Work Phone: [facility] 01-14-2022 11:08-0400 Systolic blood pressure 124 mm[Hg] Hardik Spain DO Work Phone: [facility] Encounters Encounter Date Encounter Type Care Provider Facility Start: 04-03-2025 End: 04-03-2025 Telephone encounter Mathew Cobian MD Work Phone: [facility] Start: 03-28-2025 End: 03-28-2025 Subsequent hospital visit by physician Xr [facility] Work Phone: Radiology Comment on above: Orthopnea [R06.01] Start: 03-28-2025 End: 03-28-2025 ambulatory Mathew Cobian MD Work Phone: [facility] Comment on above: Shortness of Breath Start: 03-28-2025 End: 03-28-2025 Patient encounter procedure Ino Esqueda 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 Work Phone: [facility] Comment on above: Orthopnea (Primary D x); Bilateral impacted cerumen Start: 03-27-2025 End: 03-28-2025 E-mail encounter from caregiver Ino Esqueda 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 Work Phone: [facility] Start: 03-27-2025 End: 03-28-2025 Patient encounter procedure Ino Esqueda 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 Work Phone: [facility] Comment on above: Appointment Request Start: 03-18-2025 End: 03-18-2025 Patient encounter procedure Ino Esqueda APRN.CNP Work Phone: [facility] Comment on above: Obstructive sleep ap cookie syndrome (Primary Dx); Bilateral impacted cerumen Start: 03-18-2025 End: 03-18-2025 ambulatory MATHEW COBIAN Facility:[facility] Start: 03-14-2025 End: 03-18-2025 Telephone encounter Mathew Cobian MD Work Phone: [facility] Comment on above: CPAP order Patient Question Start: 03-13-2025 End: 03-13-2025 Refill Mathew Cobian MD Work Phone: [facility] Comment on above: Refill Request Start: 02-11-2025 End: 02-11-2025 Refill Mathew Cobian MD Work Phone: [facility] Comment on above: Refill Request Start: 01-31-2025 End: 01-31-2025 ambulatory No Pcp (Hist) [facility] [place] Start: 01-31-2025 End: 01-31-2025 Patient encounter procedure No Pcp (Hist) [facility] Start: 01-29-2025 End: 01-29-2025 Emergency department patient visit Dr. Mathew Cobian MD Work Phone: -Emergency Department Work Phone: Start: 01-29-2025 End: 01-30-2025 Telephone encounter Ino Esqueda APRN.CNP Work Phone: [facility] Start: 01-28-2025 End: 01-28-2025 Patient encounter procedure Ino Esqueda APRN.CNP Work Phone: [facility] Comment on above: Thrush (Primary Dx) Start: 01-28-2025 End: 01-28-2025 [facility] Start: 01-27-2025 End: 01-27-2025 Office outpatient visit 25 minutes Mega Loja PA-C Work Phone: [facility] Comment on above: Sore throat (Primary Dx); Allergic rhinitis, unspecified seasonality, unspecified trigger Start: 01-27-2025 End: 01-27-2025 [facility] Start: 01-23-2025 End: 01-23-2025 Follow-up encounter Ino Esqueda 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 Work Phone: [facility] [place] Start: 01-20-2025 End: 01-21-2025 Emergency department patient visit Dr. Mathew Cobian MD Work Phone: -Emergency Department Work Phone: Start: 01-17-2025 End: 01-17-2025 ambulatory Mathew Cobian MD Work Phone: [facility] Comment on above: Rectal Problem Start: 01-17-2025 End: 01-17-2025 Patient encounter procedure Ino Esqueda 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 Work Phone: [facility] Comment on above: Blood in stool (Prim kamille Dx); Diverticulitis; Fatigue, unspecified type; Low energy; Chronic bilateral low back pain with right-sided sciatica Start: 01-14-2025 End: 01-14-2025 Patient encounter procedure Ino Esqueda 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 Work Phone: [facility] Comment on above: Diverticulitis (Prim kamille Dx); Skin tags, multiple acquired Start: 01-14-2025 End: 01-14-2025 ambulatory Yuko Erazo RN NURSE RIB [employer] Comment on above: Medication Question Start: 01-10-2025 End: 01-10-2025 Telephone encounter Mathew Cobian MD Work Phone: [facility] Comment on above: Medication Problem Start: 12-25-2024 End: 12-25-2024 Patient encounter procedure Greyson Ellsworth 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 Work Phone: [facility] Comment on above: Sore throat (Primary Dx); Viral illness; Seasonal allergic rhinitis, unspecified trigger Start: 12-25-2024 End: 12-25-2024 ambulatory Mathew Cobian MD Work Phone: [facility] Comment on above: Sore Throat Start: 12-13-2024 End: 12-13-2024 ambulatory MATHEW COBIAN Facility:[facility] Start: 11-05-2024 End: 11-05-2024 Emergency department patient visit Dr. Mathew Cobian MD Work Phone: -Emergency Department Work Phone: Start: 10-31-2024 End: 11-01-2024 Follow-up encounter Ren[facility] Comment on above: Results Start: 10-28-2024 ambulatory RAPHAEL CALDERON JR Facility:[facility] Start: 10-28-2024 End: 10-28-2024 Subsequent hospital visit by physician Mri [facility] (I-Stat/Lg Bore/3t) [facility] Comment on above: Prostate cancer (HCC ) [C61] Start: 09-10-2024 End: 09-10-2024 Telephone encounter Raphael Calderon MD Work Phone: Urology Comment on above: Appointment Start: 08-26-2024 End: 08-26-2024 ambulatory MATHEW COBIAN Facility:[facility] Start: 08-26-2024 End: 08-26-2024 Patient encounter procedure Tammie LOUIS-Lou Work Phone: Orthopaedics Comment on above: Other closed fractur e of proximal end of right fibula with routine healing, subsequent encounter (Primary Dx) Start: 08-26-2024 End: 08-26-2024 Subsequent hospital visit by physician Cris Phillips Work Phone: Radiology Start: 08-20-2024 End: 08-20-2024 Orders Only Tammie Vetodaniel PA-C Work Phone: Orthopaedics Comment on above: Other closed fractur e of proximal end of right fibula, initial encounter (Primary Dx) Start: 08-06-2024 End: 08-06-2024 Refill Mathew Cobian MD Work Phone: [facility] Comment on above: Refill Request Start: 07-29-2024 End: 07-29-2024 Subsequent hospital visit by physician Cris Phillips Work Phone: Radiology Comment on above: Other closed fractur e of proximal end of right fibula, initial encounter [S82.831A] Start: 07-29-2024 End: 07-29-2024 Patient encounter procedure Tammie Walters PA-C Work Phone: Orthopaedics Comment on above: Other closed fractur e of proximal end of right fibula, initial encounter (Primary Dx) Start: 07-29-2024 End: 08-01-2024 ambulatory Emma Dupree PA-C Work Phone: Pulmonary Medicine Start: 07-25-2024 End: 07-25-2024 ambulatory MATHEW COBIAN Facility:[facility] Start: 07-25-2024 End: 07-25-2024 Patient encounter procedure Mathew Cobian MD Work Phone: [facility] Comment on above: Hospital discharge f ollow-up (Primary Dx); Closed fracture of proximal end of right fibula, unspecified fracture morphology, sequela; Prostate cancer (HCC) Start: 07-23-2024 End: 07-23-2024 Telephone encounter Mathew Cobian MD Work Phone: Family [facility] Comment on above: [facility] ER f/u Start: 07-22-2024 End: 07-22-2024 Emergency department patient visit Dr. Franklyn Donaldson DO -Emergency Department Work Phone: Start: 07-20-2024 End: 07-20-2024 Emergency department patient visit KAELEATHA BARBER [facility] Start: 07-18-2024 End: 07-23-2024 Telephone encounter Brian Ahmadi 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 Work Phone: Family [facility] Comment on above: Results Start: 07-12-2024 End: 07-12-2024 ambulatory BRIAN AHMADI Facility:[facility] Start: 07-12-2024 End: 07-12-2024 Office outpatient visit 25 minutes Brian Ahmadi 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 Work Phone: [facility] Comment on above: Hypothyroidism, unsp ecified type (Primary Dx); Recurrent major depressive disorder, remission status unspecified (HCC); Anxiety; Confusion Start: 06-12-2024 End: 06-13-2024 Telephone encounter Mathew Cobian MD Work Phone: [facility] [place] Comment on above: Forms Start: 06-10-2024 End: 06-27-2024 Telephone encounter Mathew Cobian MD Work Phone: [facility] [place] Comment on above: Forms (Apt modificat ion form) Start: 06-07-2024 End: 06-07-2024 ambulatory Calixto Chandler RN NURSE RIB CLOTH KNITTER Start: 06-07-2024 End: 06-07-2024 Patient encounter procedure Calixto Chandler RN NURSE [employer]IB [employer] Comment on above: Referral Request Start: 06-07-2024 End: 06-09-2024 Telephone encounter [facility] Start: 06-03-2024 End: 06-03-2024 Telemedicine consultation with patient Devi Cisse MD Work Phone: Neurology Start: 06-03-2024 End: 06-03-2024 ambulatory Devi Cisse MD Work Phone: Neurology Comment on above: Confusion (Primary D x) Start: 06-03-2024 End: 06-03-2024 Telephone encounter Devi Cisse MD Work Phone: Pain Management Comment on above: Appointment Start: 05-22-2024 End: 05-22-2024 ambulatory GILSON BAR Facility:[facility] Start: 05-22-2024 End: 05-22-2024 Patient encounter procedure Jennifer Galicia MORTUARY BEAUTICIAN.PLUG MACHINE OPERATOR Work Phone: General Surgery Comment on above: History of colonic p olyps (Primary Dx) Start: 05-17-2024 End: 05-17-2024 ambulatory MATHEW COBIAN Facility:[facility] Start: 05-17-2024 End: 05-17-2024 Patient encounter procedure Prema Turner MORTUARY BEAUTICIAN.PLUG MACHINE OPERATOR Work Phone: [facility] Comment on above: Abrasion of lower le g, unspecified laterality, initial encounter (Primary Dx) Start: 05-16-2024 End: 05-16-2024 Telephone encounter Mathew Cobian MD Work Phone: [facility] Comment on above: Letter Start: 05-14-2024 End: 05-14-2024 Patient Outreach Sp Dahl RN Work Phone: [facility] Comment on above: Transition Of Care ( [facility] Initial Hospital Discharge /[place] 05/13/24) Initial phone contact for Transitional Care Management Start: 05-13-2024 ambulatory MATHEW Beltrán ity:[facility] Start: 05-13-2024 End: 05-13-2024 Subsequent hospital visit by physician Gilson Bar DO Work Phone: [facility] Endoscopy Comment on above: Diverticulitis [K57. 92] Start: 05-12-2024 End: 05-13-2024 ambulatory GILSON BAR Facility:[facility] Start: 05-08-2024 End: 05-08-2024 ambulatory BRIAN AHMADI Facility:[facility] Start: 05-08-2024 End: 05-08-2024 Office consultation new/estab patient 30 min Gilson Bar DO Work Phone: General Surgery Comment on above: Blood in stool (Prim kamille Dx); Diverticulitis; Bloody stools Start: 05-03-2024 End: 05-03-2024 Office outpatient visit 15 minutes Brian Daiana MORTUARY BEAUTICIAN.PLUG MACHINE OPERATOR Work Phone: [facility] Comment on above: Diverticulitis (Prim kamille Dx); Bloody stools Start: 05-03-2024 End: 05-03-2024 ambulatory RAPHAEL CALDERON JR Facility:[facility] Start: 05-01-2024 End: 05-02-2024 ambulatory Raphael Calderon MD Work Phone: Urology Comment on above: Prostate Start: 04-30-2024 End: 04-30-2024 Office outpatient visit 25 minutes Brian Daiana MORTUARY BEAUTICIAN.PLUG MACHINE OPERATOR Work Phone: [facility] Comment on above: Diverticulitis (Prim kamille Dx); Bloody stools; Encounter for immunization Start: 04-30-2024 End: 04-30-2024 ambulatory BRIAN AHMADI Facility:[facility] Start: 04-24-2024 End: 04-25-2024 Refill Mathew Cobian MD Work Phone: [facility] Comment on above: Refill Request Start: 04-23-2024 End: 04-23-2024 Emergency department patient visit Franlkyn Donaldson Facility:[facility] Start: 04-23-2024 End: 04-23-2024 ambulatory Mathew Cobian MD Work Phone: [facility] Comment on above: Rectal Bleeding Start: 04-17-2024 End: 04-17-2024 Patient encounter procedure Gypsy Ayala 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 Work Phone: [facility] Comment on above: Hypothyroidism, unsp ecified type (Primary Dx); Memory loss; Neck mass Start: 04-17-2024 End: 04-17-2024 ambulatory GYPSY AYALA Facility:[facility] Start: 04-14-2024 End: 04-14-2024 ambulatory Brian Ahmadi 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 Work Phone: [facility] Comment on above: TSH Start: 04-14-2024 End: 04-14-2024 E-mail encounter from caregiver Brian Ahmadi APRN.CNP Work Phone: [facility] Start: 04-12-2024 End: 04-12-2024 ambulatory BRIAN AHMADI Facility:[facility] Start: 04-12-2024 End: 04-12-2024 Office outpatient visit 15 minutes Brian Ahmadi 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 Work Phone: [facility] Comment on above: Recurrent major depr essive disorder, remission status unspecified (HCC) (Primary Dx); MANNY (generalized anxiety disorder); Hypothyroidism, unspecified type Start: 04-04-2024 End: 04-04-2024 Telephone encounter Mathew Cobian MD Work Phone: Internal Medicine [facility] Comment on above: Consult Start: 03-15-2024 End: 03-15-2024 Telephone encounter Brian Ahmadi 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 Work Phone: [facility] Comment on above: Patient Question Start: 03-15-2024 End: 03-15-2024 Office outpatient visit 25 minutes Brian Ahmadi 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 Work Phone: [facility] Comment on above: Hypothyroidism, unsp ecified type (Primary Dx); Recurrent major depressive disorder, remission status unspecified (HCC); MANNY (generalized anxiety disorder); Memory loss Start: 03-13-2024 End: 03-13-2024 Telephone encounter Brian Ahmadi 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 Work Phone: [facility] Comment on above: Results Start: 03-12-2024 End: 03-12-2024 Patient encounter procedure Raphael Calderon MD Work Phone: Urology Comment on above: Prostate cancer (HCC ) Start: 02-27-2024 Telephone encounter Mathew flores MD Work Phone: [facility] Comment on above: Appointment; Patient Question Start: 02-17-2024 End: 02-17-2024 Patient encounter procedure Geovanna Steele APRN.[facility] Work Phone: [facility] Comment on above: Rash (Primary Dx) Start: 01-29-2024 Refill Brian DUMONT RN.[facility] Work Phone: [facility] Comment on above: Refill Request Start: 12-20-2023 Telephone encounter Gypsy arreola 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 Work Phone: [facility] Comment on above: Results (Labs ) Start: 12-14-2023 End: 12-14-2023 Patient encounter procedure Gypsy Ayala 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 Work Phone: [facility] Comment on above: Irritability (Primar y Dx); Anxiety; Memory changes; Hypothyroidism, unspecified type; Sensation of fullness in both ears; Cerebral palsy, unspecified type (HCC); Alcohol use Start: 12-07-2023 Refill Gypsy Ayala 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 Work Phone: [facility] Comment on above: Med Change Request Start: 12-06-2023 ambulatory Ava Dunn RN NURSE O N CALL Comment on above: Medication Problem Start: 12-06-2023 Telephone encounter Gypsy arreola MORTUARY BEAUTICIAN.PLUG MACHINE OPERATOR Work Phone: [facility] Comment on above: Medication Problem Start: 11-03-2023 Telephone encounter Carolyn Ashly Tavera MORTUARY BEAUTICIAN.PLUG MACHINE OPERATOR Work Phone: [facility] Start: 11-02-2023 Refill Gypsy Ayala MORTUARY BEAUTICIAN.PLUG MACHINE OPERATOR Work Phone: [facility] Comment on above: Med Change Request Start: 11-01-2023 End: 11-01-2023 Subsequent hospital visit by physician [facility] Comment on above: Pain in right testic le [N50.811] Start: 11-01-2023 End: 11-01-2023 Patient encounter procedure Barbara Quarles MORTUARY BEAUTICIAN.PLUG MACHINE OPERATOR Work Phone: [facility] Comment on above: Pain in right testic le (Primary Dx); Right groin pain Start: 10-26-2023 Telephone encounter Mathew flores MD Work Phone: [facility] Comment on above: Handicap placard Start: 10-17-2023 End: 10-17-2023 Patient encounter procedure Mathew Cobian MD Work Phone: [facility] Comment on above: Hospital discharge f ollow-up (Primary Dx); Screening for colon cancer; Chronic bilateral low back pain with right-sided sciatica; Dizziness; Cerebral palsy, unspecified type (HCC); Recurrent major depressive disorder, remission status unspecified (HCC); Prostate cancer (HCC) Start: 10-16-2023 Telephone encounter Mathew flores MD Work Phone: [facility] Comment on above: Patient Update Start: 10-11-2023 Telephone encounter Cameron de los santos MD Work Phone: [facility] Comment on above: New Patient (Develop mental venous anomaly 09/26/23 ED admission) Start: 10-02-2023 Telephone encounter Mathew flores MD Work Phone: [facility] [place] Comment on above: Patient Update; FYI- No Action Needed Start: 09-29-2023 End: 09-29-2023 ambulatory MATHEW Barbosa [facility] Facility:[facility] Start: 09-27-2023 Telephone encounter Mathew flores MD Work Phone: [facility] Comment on above: Patient Update Start: 09-26-2023 End: 09-29-2023 Evaluation and management of inpatient AISHA STOREY Facility:[facility] Start: 09-26-2023 End: 09-29-2023 Evaluation and management of inpatient Evan Burnham MD Work Phone: [facility] Comment on above: Developmental venous anomaly Start: 09-15-2023 Telephone encounter Gypsy arreola MORTUARY BEAUTICIAN.PLUG MACHINE OPERATOR Work Phone: [facility] Comment on above: Results (Labs ); Ord ers Start: 09-14-2023 End: 09-14-2023 Patient encounter procedure Gypsy Ayala MORTUARY BEAUTICIAN.PLUG MACHINE OPERATOR Work Phone: [facility] Comment on above: JODEE (obstructive sle ep apnea) (Primary Dx); Bilateral impacted cerumen; Brain fog; Hypothyroidism, unspecified type; Vitamin D deficiency Start: 09-12-2023 End: 09-12-2023 ambulatory MATHEW Barbosa [facility] Facility:[facility] Start: 08-25-2023 Telephone encounter Mathew flores MD Work Phone: [facility] Comment on above: Forms ([employer]) Start: 08-17-2023 Telephone encounter Mathew flores MD Work Phone: [facility] [place] Comment on above: Forms Start: 07-31-2023 End: 07-31-2023 Subsequent hospital visit by physician Cris [facility] Work Phone: Radiology Comment on above: Subacute cough [R05. 2] Start: 06-14-2023 Refill Brian DUMONT RN.PLUG MACHINE OPERATOR Work Phone: [facility] Comment on above: Refill Request Start: 04-17-2023 Telephone encounter Mathew flores MD Work Phone: [facility] Comment on above: FYI-No Action Needed (Dr. Conklin's office will not see pt) Start: 04-14-2023 Telephone encounter Geovanna Steele 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 Work Phone: [facility] Comment on above: Results Start: 04-12-2023 End: 04-12-2023 Patient encounter procedure Geovanna Steele 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 Work Phone: [facility] Comment on above: Urinary frequency (P rimary Dx); Prostatitis, acute Start: 04-12-2023 Telephone encounter Mathew flores MD Work Phone: [facility] Comment on above: UTI s/s Start: 03-29-2023 ambulatory No Pcp MORTUARY BEAUTICIAN Kierra Blake [employer] Start: 03-16-2023 Telephone encounter Mathew flores MD Work Phone: [facility] Comment on above: Referral Request Start: 03-16-2023 End: 03-16-2023 ambulatory [facility] Work Phone: Start: 03-16-2023 End: 03-16-2023 Discharged Recurring [facility]-Physical Therapy Work Phone: Start: 01-11-2023 Telephone encounter Mathew flores MD Work Phone: [facility] Comment on above: Letter; Forms Start: 12-21-2022 Telephone encounter Mathew flores MD Work Phone: [facility] Comment on above: Letter Start: 12-20-2022 End: 12-20-2022 Office outpatient visit 25 minutes Brian Ahmadi 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 Work Phone: [facility] Comment on above: Cerebral palsy, unsp ecified [...] Phone: [facility] [place] Comment on above: Lab Orders Start: 09-16-2022 Telephone encounter Hardik quintanilla DO Work Phone: Hematology/Oncology Comment on above: Refill Request Start: 07-22-2022 Refill Mathew manuel MD Work Phone: [facility] Comment on above: Refill Request Start: 06-10-2022 Telephone encounter Mathew flores MD Work Phone: [facility] [place] Comment on above: Results Start: 06-07-2022 End: 06-07-2022 Patient encounter procedure Mathew Cobian MD Work Phone: [facility] Comment on above: Cerebral palsy, unsp ecified [...] ambulatory Helder Sibley DO Work Phone: [facility] Comment on above: Malignant neoplasm o f prostate (HCC) (Primary Dx) Start: 04-19-2022 End: 04-19-2022 Telemedicine consultation with patient Helder Sibley DO Work Phone: [facility] Start: 03-03-2022 Refill Hardik Joseph Work Phone: Hematology/Oncology Comment on above: Refill Request Start: 03-02-2022 Patient Outreach Mathew mensah MD Work Phone: [facility] Comment on above: Transition Of Care Start: 02-27-2022 End: 02-27-2022 Emergency department patient visit [facility]Emergency Department Start: 02-17-2022 Telephone encounter Robert lowe MD Work Phone: Neurology Comment on above: Patient Update (verb le order for pt ) Start: 01-15-2022 Telephone encounter Hardik quintanilla DO Work Phone: Hematology/Oncology Comment on above: Results (Pelvic x-ra y) Start: 01-14-2022 End: 01-14-2022 ambulatory Hardik Spain DO Work Phone: Hematology/Oncology Comment on above: Abnormal x-ray of pe lvis (Primary Dx) Start: 01-14-2022 End: 01-14-2022 Patient encounter procedure Hardik Spain DO Work Phone: [facility] Start: 01-14-2022 End: 01-14-2022 Subsequent hospital visit by physician Xr [facility] Work Phone: Radiology Comment on above: Abnormal x-ray of pe lvis [R93.7] Start: 12-23-2021 ambulatory Mathew manuel MD Work Phone: [facility] Comment on above: CPAP Start: 12-22-2021 Telephone encounter Robert lowe MD Work Phone: Neurology Comment on above: Patient Update (home health ) Start: 12-13-2021 Refill Brian DUMONT RN.PLUG MACHINE OPERATOR Work Phone: [facility] Comment on above: Refill Request Start: 12-11-2021 ambulatory Merlyn Rutherford RN SHANEKA SE [employer] [employer] Comment on above: Blood Pressure Start: 11-26-2021 Refill Mathew manuel MD Work Phone: [facility] Comment on above: Refill Request Start: 10-27-2021 Telephone encounter Robert lowe MD Work Phone: [facility]YSICAL [facility]ICINE [facility] REH[facility] Comment on above: HHC and POC Start: 08-26-2021 End: 08-26-2021 Subsequent hospital visit by physician Mri [facility] (I-Stat/1.5t) Work Phone: Radiology Comment on above: Canceled (Pt cx: Wea ther) Start: 03-18-2021 End: 03-18-2021 Subsequent hospital visit by physician Xr [facility] Work Phone: Radiology Comment on above: Pain [R52] Procedures Date Procedure Procedure Detail Performing Clinician Start: 03-28-2025 Radiologic exam ches t 2 views Ino Esqueda M[employer]UARY BEAUTICIAN.PLUG MACHINE OPERATOR Work Phone: Start: 01-27-2025 Iadna streptococcus group a amplified probe tq Mega Loja PA-C Work Phone: Start: 01-21-2025 CT of head without contrast Dr. Mathew Cobian MD Work Phone: Start: 01-20-[address] Mathew Cobian MD Work Phone: Start: 12-25-2024 Iadna streptococcus group a amplified probe tq Ronald Cat MORTUARY BEAUTICIAN.PLUG MACHINE OPERATOR Work Phone: Start: 07-22-2024 MRI of lower extremity Dr. Mathew Cobian MD Work Phone: Start: 07-22-2024 Plain X-ray of tibia and fibula Dr. Mathew Cobian MD Work Phone: Start: 05-13-2024 Colonoscopy flx dx w /collj spec when pfrmd Gilson C Finelli DO Work Phone: Start: 05-13-2024 Colonoscopy Gilson Fi devika DO Work Phone: Start: 04-30-2024 PFIZER-BIONTConvozine COVI D-19 VACCINE AGE 12+ YR (COMIRNATY) Brian Ahmadi MORTUARY BEAUTICIAN.PLUG MACHINE OPERATOR Work Phone: Start: 11-01-2023 Dup-scan artl flora abdl/pel/scrot&/rpr orgn com Barbara Quarles MORTUARY BEAUTICIAN.PLUG MACHINE OPERATOR Work Phone: Start: 11-01-2023 Us scrotum & contents J natalya Willam MORTUARY BEAUTICIAN.PLUG MACHINE OPERATOR Work Phone: Start: 11-01-2023 Urnls dip stick/tabl [...] on above: Performed By: #### A 1CB, [id number] #### [facility] ([facility]) [address] [place] [id number] Start: 09-27-2023 Mri brain brain stem w/o [...] Work Phone: Start: 09-26-2023 Bilirubin direct Austin boggs MD Work Phone: Start: 09-26-2023 CBC [...] exam ches t 2 views Willie Gilbert MORTUARY BEAUTICIAN.PLUG MACHINE OPERATOR Work Phone: Start: 04-12-2023 Urnls dip stick/tabl et rgnt auto w/o microscopy Barbara Quarles MORTUARY BEAUTICIAN.PLUG MACHINE OPERATOR Work Phone: Start: 01-14-2022 Radiologic examinati on pelvis 1/2 views Hardik Spain DO Work Phone: Start: 07-18-2021 Adult depression scr eening assessment Rboert Ardon MD Work Phone: Start: 03-18-2021 Radex hips bilateral with pelvis minimum 5 views Gerardo Lopez PA-C Work Phone: Start: 06-07-2017 Lipid 1996 panel - S alma delia or Plasma Mathew Cobian MD Work Phone: Plan of Treatment Date Care Activity Detail Author Start: 05-03-2029 Prostate specific antigen measurement Prostate Cancer Screening Discussion [facility] Start: 09-25-2028 Lipid panel LIPID SCREENING [facility] Start: 09-12-2028 Prostate specific antigen measurement Prostate Cancer Screening Discussion [facility] Start: 08-28-2028 DTaP/Tdap/Td Vaccine s (3 - Td or Tdap) DTaP/Tdap/Td Vaccines (3 - Td or Tdap) [facility] Start: 08-28-2028 Tetanus vaccination TETANUS [facility] Start: 08-28-2028 Urine microalbumin profile [facility] Start: 01-18-2028 Diabetes Screening Diabetes Screenin g [facility] Start: 12-15-2027 PROSTATE CANCER SCREENING DISCUSSION PROSTATE CANCER SCREENING DISCUSSION [facility] Start: 12-15-2027 Prostate specific antigen measurement Prostate Cancer Screening Discussion [facility] Start: 07-12-2027 Diabetes Screening Diabetes Screenin g [facility] Start: 2027 RSV Immunization age d 60 or older (1 - 1-dose 60+ series) RSV Immunization aged 60 or older (1 - 1-dose 60+ series) [facility] Start: 04-18-2027 PROSTATE CANCER SCREENING DISCUSSION PROSTATE CANCER SCREENING DISCUSSION [facility] Start: 03-12-2027 Diabetes Screening Diabetes Screenin g [facility] Start: 12-13-2026 Diabetes Screening Diabetes Screenin g [facility] Start: 10-04-2026 Diabetes Screening Diabetes Screenin g [facility] Start: 09-14-2026 Diabetes Screening Diabetes Screenin g [facility] Start: 07-13-2026 Diabetes Screening Diabetes Screenin g [facility] Start: 03-28-2026 Annual PCP Team Transportation Services Representative reina Disease Visit Annual PCP Team Chronic Disease Visit [facility] Start: 03-18-2026 Annual PCP Team Transportation Services Representative reina Disease Visit Annual PCP Team Chronic Disease Visit [facility] Start: 01-28-2026 Annual PCP Team Transportation Services Representative reina Disease Visit Annual PCP Team Chronic Disease Visit [facility] Start: 01-17-2026 Annual PCP Team Transportation Services Representative reina Disease Visit Annual PCP Team Chronic Disease Visit [facility] Start: 01-14-2026 Annual PCP Team Transportation Services Representative reina Disease Visit Annual PCP Team Chronic Disease Visit [facility] Start: 12-14-2025 DIABETES SCREEN DIABETES SCREEN [facility] Start: 12-14-2025 Diabetes Screening Diabetes Screenin g [facility] Start: 12-13-2025 Annual PCP Team Transportation Services Representative reina Disease Visit Annual PCP Team Chronic Disease Visit [facility] Start: 07-25-2025 Annual PCP Team Transportation Services Representative reina Disease Visit Annual PCP Team Chronic Disease Visit [facility] Start: 07-12-2025 Annual PCP Team Transportation Services Representative reina Disease Visit Annual PCP Team Chronic Disease Visit [facility] Start: 05-20-2025 End: 05-20-2025 Patient encounter procedure 05/20/2025 11:00 AM EDT Office Visit Urology [address] [address] Raphael Calderon Jr., MD [address] [place] [address] 6 month follow up Urology Comment on above: 6 month follow up Start: 05-13-2025 Screening for malign ant neoplasm of colon [facility] Start: 05-03-2025 Annual PCP Team Transportation Services Representative reina Disease Visit Annual PCP Team Chronic Disease Visit [facility] Start: 04-30-2025 Annual PCP Team Transportation Services Representative reina Disease Visit Annual PCP Team Chronic Disease Visit [facility] Start: 04-17-2025 Annual PCP Team Transportation Services Representative reina Disease Visit Annual PCP Team Chronic Disease Visit [facility] Start: 04-12-2025 Annual PCP Team Transportation Services Representative reina Disease Visit Annual PCP Team Chronic Disease Visit [facility] Start: 03-31-2025 End: 03-31-2025 Patient encounter procedure 03/31/2025 12:00 PM EDT Office Visit [facility] [address] [place] [address] Ino Esqueda 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 [address] [place], [place] [address] ear lavage [facility] Comment on above: ear lavage Start: 03-25-2025 End: 03-25-2025 Patient encounter procedure 03/25/2025 1:00 PM EDT Office Visit [facility] [address] [place] [address] Ino Esqueda 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 [address] [place], [place] [address] ear lavage [facility] Comment on above: ear lavage Start: 03-24-2025 Influenza vaccination C [facility] Start: 03-18-2025 End: 03-18-2025 Patient encounter procedure 03/18/2025 12:00 PM EDT Office Visit [facility] [address] [place] [address] Ino Esqueda 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 [address] [place], [place] [address] follow up on CPAP usage [facility] Comment on above: follow up on CPAP us age Start: 03-15-2025 Annual PCP Team Transportation Services Representative reina Disease Visit Annual PCP Team Chronic Disease Visit [facility] Start: 01-29-2025 [facility] Start: 01-23-2025 End: 01-23-2025 Patient encounter procedure 01/23/2025 10:00 AM EDT Office Visit General Surgery [address] [place] [address] Jennifer Galicia 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 [address] [place] [address] diverticulitis f/u see TE per nurse General Surgery Comment on above: diverticulitis f/u s ee TE per nurse Start: 01-21-2025 End: 01-21-2025 Patient encounter procedure [facility] Comment on above: 6 month follow up Fungal infection of toenail [B35.1] Start: 01-21-2025 [facility] Start: 01-20-2025 Influenza vaccination Influenza Vacc ine (#1) [facility] Comment on above: Postponed from 03/24 (Declined at this time) Start: 01-17-2025 End: 04-18-2025 Cobalamin (Vitamin B12) [Mass/volume] in Serum or Plasma [facility] Comment on above: Expected: 01/17/2025 , Expires: 04/18/2025 Start: 01-17-2025 End: 04-18-2025 Pyridoxine [Mass/volume] in Serum or Plasma [facility] Comment on above: Expected: 01/17/2025 , Expires: 04/18/2025 Start: 01-17-2025 End: 04-18-2025 Riboflavin [Moles/volume] in Serum or Plasma [facility] Comment on above: Expected: 01/17/2025 , Expires: 04/18/2025 Start: 01-17-2025 End: 04-18-2025 VITAMIN B1 (THIAMINE), WHOLE BLOOD [facility] Work Phone: Comment on above: Expected: 01/17/2025 , Expires: 04/18/2025 Start: 01-17-2025 End: 01-17-2025 Patient encounter procedure 01/17/2025 10:20 AM EDT Office Visit [facility] [address] [place], [place] [phone] Ino Esqueda 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 [address] [place], [place] [phone] 3 day follow up [facility] Comment on above: 3 day follow up Start: 01-14-2025 End: 01-14-2025 Patient encounter procedure 01/14/2025 10:20 AM EDT Office Visit [facility] [address] [place], [place] [phone] Ino Esqueda 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 [address] [place] [address] skin tags,allergies [facility] Comment on above: skin tags,allergies Start: 12-13-2024 Annual PCP Team Transportation Services Representative reina Disease Visit Annual PCP Team Chronic Disease Visit [facility] Start: 11-05-2024 [facility] Start: 10-28-2024 End: 10-28-2024 Patient encounter procedure 10/28/2024 10:20 AM EDT Appointment [facility] [place], [place] [id number] Prostate cancer (HCC) [C61] [facility] Comment on above: Prostate cancer (HCC ) [C61] Start: 10-16-2024 Annual PCP Team Transportation Services Representative reina Disease Visit Annual PCP Team Chronic Disease Visit [facility] Start: 10-16-2024 Covid-19 Vaccine ( season) Covid-19 Vaccine () [facility] Comment on above: Postponed from 03/24 (Declined at this time) Start: 09-14-2024 Annual PCP Team Transportation Services Representative reina Disease Visit Annual PCP Team Chronic Disease Visit [facility] Start: 09-12-2024 End: 12-12-2024 Prostate specific Ag [Mass/volume] in Serum or Plasma PROSTATE-SPECIFIC ANTIGEN DIAGNOSTIC Lab Routine Prostate cancer (HCC) Expected: 09/12/2024, Expires: 12/12/2024 [facility] Comment on above: Expected: 09/12/2024 , Expires: 12/12/2024 Start: 09-10-2024 End: 09-10-2024 Patient encounter procedure 09/10/2024 11:15 AM EST Office Visit Urology [address] [address] [place] [address] [place] [id number] 6 mth follow up to scan Urology Comment on above: 6 mth follow up to s can Start: 08-29-2024 End: 11-28-2024 Thyrotropin [Units/volume] in Serum or Plasma THYROID STIMULATING HORMONE Lab Routine Hypothyroidism, unspecified type Expected: 08/29/2024, Expires: 11/28/2024 [facility] Work Phone: Comment on above: Expected: 08/29/2024 , Expires: 11/28/2024 Start: 08-26-2024 End: 08-26-2024 Patient encounter procedure 08/26/2024 10:30 AM EST Office Visit Orthopaedics [address] [place] [address] Tammie Walters PA-C [address] [place], [place] [phone] Follow up Orthopaedics Comment on above: Follow up Start: 08-15-2024 Annual PCP Team Transportation Services Representative reina Disease Visit Annual PCP Team Chronic Disease Visit [facility] Start: 07-29-2024 End: 07-29-2024 Patient encounter procedure 07/29/2024 3:30 PM EST Office Visit Orthopaedics [address] [place] [address] Tammie Walters PA-C [address] [place] [place], [place] [phone] Right fibula fracture - [facility] ED Orthopaedics Comment on above: Right fibula fractur e - [facility] ED Start: 07-29-2024 DIABETES SCREEN DIABETES SCREEN [facility] Start: 07-29-2024 End: 07-29-2024 Patient encounter procedure 07/29/2024 10:20 AM EST Appointment [facility] [place] [address] Prostate cancer (HCC) [C61] [facility] Comment on above: Prostate cancer (HCC ) [C61] Start: 07-25-2024 End: 07-25-2024 Patient encounter procedure 07/25/2024 10:00 AM EST Office Visit [facility] [address] [place], [place] [phone] Mathew Cobian MD [address] [place], [place] [phone] [facility] ER f/u closed fx of fibula proximal right. 07-22-24 [facility] Comment on above: [facility] ER f/u closed fx of fibula proximal right. 07-22-24 Start: 07-24-2024 Medicare Advantage Annual Wellness Visit Medicare Advantage Annual Wellness Visit [facility] Start: 07-22-2024 [facility] Start: 07-12-2024 End: 07-12-2024 Patient encounter procedure 07/12/2024 11:00 AM EST Office Visit [facility] [address] [place], [place] [phone] Brian Ahmadi 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 [address] [place], [place] [phone] 3 month follow up [facility] Comment on above: 3 month follow up Start: 07-07-2024 End: 10-06-2024 Basic metabolic 2000 panel - Serum or Plasma BASIC METABOLIC PANEL Lab Routine Hypothyroidism, unspecified type Expected: 07/07/2024 (Approximate), Expires: 10/06/2024 [facility] Comment on above: Expected: 07/07/2024 (Approximate), Expires: 10/06/2024 Start: 07-07-2024 End: 10-06-2024 Thyrotropin [Units/volume] in Serum or Plasma THYROID STIMULATING HORMONE Lab Routine Hypothyroidism, unspecified type Expected: 07/07/2024 (Approximate), Expires: 10/06/2024 [facility] Work Phone: Comment on above: Expected: 07/07/2024 (Approximate), Expires: 10/06/2024 Start: 06-03-2024 End: 06-03-2024 ambulatory 06/03/2024 3:00 PM EST [facility] Neurology [address] [place] [id number] Devi Cisse MD [address] [place] [address] memory change Neurology Comment on above: memory change Start: 06-03-2024 End: 09-02-2024 Cobalamin (Vitamin B12) [Mass/volume] in Serum or Plasma VITAMIN B12 Lab Routine Confusion Expected: 06/03/2024, Expires: 09/02/2024 [facility] Comment on above: Expected: 06/03/2024 , Expires: 09/02/2024 Start: 06-03-2024 End: 09-02-2024 Folate [Mass/volume] in Serum or Plasma FOLATE, SERUM Lab Routine Confusion Expected: 06/03/2024, Expires: 09/02/2024 [facility] Comment on above: Expected: 06/03/2024 , Expires: 09/02/2024 Start: 06-03-2024 End: 09-02-2024 Magnesium [Mass/volume] in Serum or Plasma MAGNESIUM Lab Routine Confusion Expected: 06/03/2024, Expires: 09/02/2024 [facility] Comment on above: Expected: 06/03/2024 , Expires: 09/02/2024 Start: 06-03-2024 End: 09-02-2024 Methylmalonate [Moles/volume] in Serum or Plasma METHYLMALONIC ACID Lab Routine Confusion Expected: 06/03/2024, Expires: 09/02/2024 [facility] Comment on above: Expected: 06/03/2024 , Expires: 09/02/2024 Start: 06-03-2024 End: 09-02-2024 Thyrotropin [Units/volume] in Serum or Plasma THYROID STIMULATING HORMONE Lab Routine Confusion Expected: 06/03/2024, Expires: 09/02/2024 [facility] Comment on above: Expected: 06/03/2024 , Expires: 09/02/2024 Start: 05-22-2024 End: 05-22-2024 Patient encounter procedure 05/22/2024 11:15 AM EDT Office Visit General [facility] [address] [facility] [address] [place] Bar, [address] [place] [address] f/u colonoscopy General Surgery Comment on above: f/u colonoscopy Start: 05-13-2024 End: 05-13-2024 Patient encounter procedure 05/13/2024 8:15 AM EDT Appointment [facility] Endoscopy [address] [place] [address] [place], DO [address] [place] [address] Yuko Silva, [employer]CR[employer] [address] [place] [address] [place] [address] [place] [address] to be admitted the day prior per colon [facility] Endoscopy Comment on above: to be admitted the d ay prior per colon Start: 05-08-2024 End: 05-08-2024 Patient encounter procedure 05/08/2024 1:00 PM EDT Office Visit General Surgery [address] [place] [address] [place], DO [address] [place] [address] Diverticulitis [K57.92] General Surgery Comment on above: Diverticulitis [K57. 92] Start: 05-03-2024 End: 05-03-2024 Patient encounter procedure 05/03/2024 10:40 AM EDT Office Visit [facility] [address] [place] [address] Brian Ahmadi 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 [address] [place] [address] Follow up [facility] Comment on above: Follow up Start: 05-02-2024 End: 08-01-2024 Prostate specific Ag [Mass/volume] in Serum or Plasma PROSTATE-SPECIFIC ANTIGEN DIAGNOSTIC Lab Routine Prostate cancer (HCC) Expected: 05/02/2024, Expires: 08/01/2024 [facility] Work Phone: Comment on above: Expected: 05/02/2024 , Expires: 08/01/2024 Start: 04-24-2024 End: 04-24-2024 ambulatory 04/24/2024 9:00 AM EDT [facility] Neurology [address] [address] Devi Cisse MD [address] [place] [address] Memory changes [R41.3] Neurology Comment on above: Memory changes [R41. 3] Start: 04-24-2024 End: 04-24-2024 Patient encounter procedure 04/24/2024 9:00 AM EDT Office Visit Neurology [address] [id number] Devi Cisse MD [address] [place], [place] [phone] Memory changes [R41.3] Neurology Comment on above: Memory changes [R41. 3] Start: 04-22-2024 End: 04-22-2024 Patient encounter procedure 04/22/2024 10:45 AM EDT Appointment Radiology [address] [place] [address] Neck mass [R22.1] Radiology Comment on above: Neck mass [R22.1] Start: 04-12-2024 End: 07-12-2024 Thyrotropin [Units/volume] in Serum or Plasma THYROID STIMULATING HORMONE Lab Routine Hypothyroidism, unspecified type Expected: 04/12/2024 (Approximate), Expires: 07/12/2024 [facility] Work Phone: Comment on above: Expected: 04/12/2024 (Approximate), Expires: 07/12/2024 Start: 04-12-2024 End: 04-12-2024 Patient encounter procedure 04/12/2024 10:40 AM EDT Office Visit [facility] [address] [facility] [place] [address] Brian Ahmadi 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 [address] [place], [place] [phone] 4 week follow up [facility] Comment on above: 4 week follow up Start: 03-24-2024 Covid-19 Vaccine ( season) Covid-19 Vaccine () [facility] Start: 03-24-2024 Covid-19 Vaccine () Covid-19 Vaccine () [facility] Start: 03-24-2024 Influenza vaccination C [facility] Start: 03-15-2024 End: 03-15-2024 Patient encounter procedure 03/15/2024 10:20 AM EDT Office Visit [facility] [address] [place], [place] [phone] Brian Ahmadi 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 [address] [place], [place] [address] Follow up for TSH Lab [facility] Comment on above: Follow up for TSH La b Start: 03-12-2024 End: 03-12-2024 Patient encounter procedure 03/12/2024 11:30 AM EDT Office Visit Urology [address] [address] Raphael Calderon Jr., MD [address] [place] [address] 6 mth follow up Urology Comment on above: 6 mth follow up Start: 01-21-2024 Influenza vaccination Influenza Vacc ine (#1) [facility] Comment on above: Postponed from 03/24 (Declined at this time) Start: 12-21-2023 ANNUAL PCP TEAM DIRECTOR SHIP REINA DISEASE VISIT ANNUAL PCP TEAM CHRONIC DISEASE VISIT [facility] Start: 12-14-2023 End: 03-14-2024 VITAMIN B1 (THIAMINE), WHOLE BLOOD [facility] Work Phone: Comment on above: Expected: 12/14/2023 , Expires: 03/14/2024 Start: 10-18-2023 End: 10-18-2023 Patient encounter procedure 10/18/2023 8:00 AM EDT Office Visit [facility] [address] [place] [phone] Cameron Taylor MD [address] [place], [place] [phone] [facility] Start: 09-15-2023 End: 12-15-2023 Thyrotropin [Units/volume] in Serum or Plasma TSH BLD Lab Routine Hypothyroidism, unspecified type Expected: 09/15/2023, Expires: 12/15/2023 [facility] Work Phone: Comment on above: Expected: 09/15/2023 , Expires: 12/15/2023 Start: 09-15-2023 End: 12-15-2023 Thyroxine (T4) free [Mass/volume] in Serum or Plasma T4 FREE/FREE THYROX Lab Routine Hypothyroidism, unspecified type Expected: 09/15/2023, Expires: 12/15/2023 [facility] Work Phone: Comment on above: Expected: 09/15/2023 , Expires: 12/15/2023 Start: 09-14-2023 End: 12-14-2023 25-hydroxyvitamin D3 [Mass/volume] in Serum or Plasma [facility] Work Phone: Comment on above: Expected: 09/14/2023 , Expires: 12/14/2023 Start: 09-14-2023 End: 12-14-2023 Cobalamin (Vitamin B12) [Mass/volume] in Serum or Plasma [facility] Work Phone: Comment on above: Expected: 09/14/2023 , Expires: 12/14/2023 Start: 09-14-2023 End: 12-14-2023 Comprehensive metabolic 2000 panel - Serum or Plasma [facility] Work Phone: Comment on above: Expected: 09/14/2023 , Expires: 12/14/2023 Start: 09-14-2023 End: 12-14-2023 Folate [Mass/volume] in Serum or Plasma [facility] Work Phone: Comment on above: Expected: 09/14/2023 , Expires: 12/14/2023 Start: 09-14-2023 End: 12-14-2023 Thyrotropin [Units/volume] in Serum or Plasma [facility] Work Phone: Comment on above: Expected: 09/14/2023 , Expires: 12/14/2023 Start: 09-14-2023 End: 12-14-2023 Thyroxine (T4) free [Mass/volume] in Serum or Plasma [facility] Work Phone: Comment on above: Expected: 09/14/2023 , Expires: 12/14/2023 Start: 07-24-2023 Depression Assessment Depression Ass essment [facility] Start: 06-07-2023 ANNUAL PCP TEAM DIRECTOR SHIP REINA DISEASE VISIT ANNUAL PCP TEAM CHRONIC DISEASE VISIT [facility] Start: 03-24-2023 COVID-19 VACCINE ( season) COVID-19 VACCINE ( season) [facility] Start: 03-24-2023 Covid-19 Vaccine ( season) Covid-19 Vaccine ( season) [facility] Start: 03-24-2023 Influenza vaccination C [facility] Start: 02-19-2023 End: 04-21-2023 25-hydroxyvitamin D3 [Mass/volume] in Serum or Plasma VITAMIN D 25 HYDROXY Lab Routine Vitamin D deficiency Expected: 02/19/2023 (Approximate), Expires: 04/21/2023 [facility] Work Phone: Comment on above: Expected: 02/19/2023 (Approximate), Expires: 04/21/2023 Start: 02-19-2023 End: 04-21-2023 Thyrotropin [Units/volume] in Serum or Plasma TSH BLD Lab Routine Hypothyroidism, unspecified type Expected: 02/19/2023 (Approximate), Expires: 04/21/2023 [facility] Work Phone: Comment on above: Expected: 02/19/2023 (Approximate), Expires: 04/21/2023 Start: 01-20-2023 Influenza vaccination INFLUENZA (#1) [facility] Comment on above: Postponed from 03/24 (Declined at this time) Start: 11-14-2022 End: 01-14-2023 25-hydroxyvitamin D3 [Mass/volume] in Serum or Plasma VITAMIN D 25 HYDROXY Lab Routine Vitamin D deficiency Expected: 11/14/2022 (Approximate), Expires: 01/14/2023 [facility] Work Phone: Comment on above: Expected: 11/14/2022 (Approximate), Expires: 01/14/2023 Start: 11-14-2022 End: 01-14-2023 CBC panel - Blood by Automated count CBC Lab Routine Alcohol use GERD without esophagitis Expected: 11/14/2022 (Approximate), Expires: 01/14/2023 [facility] Work Phone: Comment on above: Expected: 11/14/2022 (Approximate), Expires: 01/14/2023 Start: 11-14-2022 End: 01-14-2023 Comprehensive metabolic 2000 panel - Serum or Plasma COMP METABOLIC PANEL Lab Routine Alcohol use Expected: 11/14/2022 (Approximate), Expires: 01/14/2023 [facility] Work Phone: Comment on above: Expected: 11/14/2022 (Approximate), Expires: 01/14/2023 Start: 11-14-2022 End: 01-14-2023 Thyrotropin [Units/volume] in Serum or Plasma TSH BLD Lab Routine Hypothyroidism, unspecified type Alcohol use Expected: 11/14/2022 (Approximate), Expires: 01/14/2023 [facility] Work Phone: Comment on above: Expected: 11/14/2022 (Approximate), Expires: 01/14/2023 Start: 11-14-2022 End: 01-14-2023 VITAMIN B1 (THIAMINE), WHOLE BLOOD VITAMIN B1 (THIAMINE), WHOLE BLOOD Lab Routine Alcohol use Expected: 11/14/2022 (Approximate), Expires: 01/14/2023 [facility] Work Phone: Comment on above: Expected: 11/14/2022 (Approximate), Expires: 01/14/2023 Start: 10-17-2022 End: 12-17-2022 Prostate specific Ag [Mass/volume] in Serum or Plasma PSA/PROSTSPECAG DIAG Lab Routine Malignant neoplasm of prostate (HCC) Expected: 10/17/2022, Expires: 12/17/2022 [facility] Work Phone: Comment on above: Expected: 10/17/2022 , Expires: 12/17/2022 Start: 09-10-2022 End: 11-10-2022 Thyrotropin [Units/volume] in Serum or Plasma TSH BLD Lab Routine Hypothyroidism, unspecified type Expected: 09/10/2022 (Approximate), Expires: 11/10/2022 [facility] Work Phone: Comment on above: Expected: 09/10/2022 (Approximate), Expires: 11/10/2022 Start: 07-24-2022 DEPRESSION ASSESSMENT DEPRESSION ASS ESSMENT [facility] Start: 07-18-2022 Adult depression screening assessment DEPRESSION SCREENING [facility] Start: 06-08-2022 Influenza vaccination LUNG CANCER SC REENING [facility] Start: 06-08-2022 Screening for malign ant neoplasm of lung Lung Cancer Screening [facility] Start: 06-07-2022 Lipid 1996 panel - S alma delia or Plasma Lipid Screening [facility] Start: 06-07-2022 Lipid panel Lipid Screening [facility] Start: 06-07-2022 LIPID SCREEN LIPID SCREEN [facility] Start: 04-16-2022 ANNUAL PCP TEAM DIRECTOR SHIP REINA DISEASE VISIT ANNUAL PCP TEAM CHRONIC DISEASE VISIT [facility] Start: 03-24-2022 Influenza vaccination C [facility] Start: 10-28-2021 COVID-19 VACCINE (4 - Booster for Pfizer series) COVID-19 VACCINE (4 - Booster for Pfizer series) [facility] Start: 08-24-2021 COVID-19 VACCINE (4 - Booster for Pfizer series) COVID-19 VACCINE (4 - Booster for Pfizer series) [facility] Start: 08-24-2021 COVID-19 VACCINE (4 - Pfizer series) COVID-19 VACCINE (4 - Pfizer series) [facility] Start: 07-24-2021 DEPRESSION ASSESSMENT DEPRESSION ASS ESSMENT [facility] Start: 2017 Pneumococcal Vaccine : 50+ (1 of 1 - PCV) Pneumococcal Vaccine: 50+ (1 of 1 - PCV) [facility] Start: 2017 Prostate specific antigen measurement PROSTATE CANCER SCREENING DISCUSSION [facility] Start: 2017 SHINGRIX VACCINE (1 of 2) SHINGRIX VACCINE (1 of 2) [facility] Start: 2017 Zoster vaccine hzv l joselyn for subcutaneous use ZOSTER (SHINGLES) VACCINE (1 of 2) [facility] Start: 2017 Zoster Vaccines (1 of 2) Zoste r Vaccines (1 of 2) [facility] Start: 2012 COLOGUARD (FIT-DNA) COLOGUARD (FIT-D NA) [facility] Start: 2012 Colonoscopy COLONOSCOPY [facility] Start: 2012 COLORECTAL CANCER SCREENING COLORECTAL CANCER SCREENING [facility] Start: [address] COLONOGRAPHY [facility] Start: 2012 FECAL OCCULT BLOOD FECAL OCCULT BLOO D [facility] Start: 2012 Screening for malign ant neoplasm of colon [facility] Start: 2012 SIGMOIDOSCOPY SIGMOIDOSCOPY [facility] Start: 1986 Hepatitis B vaccination HEP B VACCINE (1 of 3 - 19+ 3-dose series) [facility] Start: 1986 Hepatitis B Vaccine (1 of 3 - 19+ 3-dose series) Hepatitis B Vaccine (1 of 3 - 19+ 3-dose series) [facility] Start: 1986 Hepatitis B Vaccines (1 of 3 - 19+ 3-dose series) Hepatitis B Vaccines (1 of 3 - 19+ 3-dose series) [facility] Start: 1986 SHINGRIX VACCINE (1 of 2) SHINGRIX VACCINE (1 of 2) [facility] Start: 1985 Hepatitis C screening Hepatitis C Sc reening [facility] Start: 1985 HIV SCREENING HIV SCREENING [facility] Start: 1985 HIV screening HIV Screening [facility] Start: 1982 HIV screening HIV SCREENING DISCUSSION [facility] Start: 1979 Depression Screening Depression Scre ening [facility] Start: 1973 PNEUMOCOCCAL (1 - PCV) PNEUMOCOCCAL (1 - PCV) [facility] Start: 1973 Pneumococcal vaccination [facility] Start: 1968 MMR Vaccines (1 of 1 - Standard series) MMR Vaccines (1 of 1 - Standard series) [facility] Start: 1967 HEPATITIS B (1 of 3 - 3-dose series) HEPATITIS B (1 of 3 - 3-dose series) [facility] Start: 1967 Hepatitis B Vaccine (1 of 3 - 3-dose series) Hepatitis B Vaccine (1 of 3 - 3-dose series) [facility] Start: 1967 Hepatitis C screening HEPATITI S C VIRUS SCREENING [facility] Start: 1967 HIV screening HIV Screening [facility] Start: 1967 Lipid panel Lipid Panel [facility] Start: 1967 Screening for malign ant neoplasm of colon [facility] Start: 1967 Thyroid stimulating hormone measurement TSH [facility] BACH SCREENING TEST BACH SCREENI NG TEST Procedures Routine Memory loss Ordered: 03/15/2024 [facility] Comment on above: Ordered: 03/15/2024 Bacteria identified in Urine by Culture URINE CULTURE Microbiology Routine Urinary frequency 04/12/2023 8:[address] [facility] Work Phone: Bacteria identified in Urine by Culture URINE CULTURE Microbiology Routine Pain in right testicle Right groin pain 11/01/2023 4:[address] [facility] Work Phone: End: 06-03-2025 EPIL EEG ROUTINE EPIL EEG ROUTINE NEUROLOGY Routine Confusion 1 Occurrences starting 06/03/2024 until 06/03/2025 [facility] Work Phone: Comment on above: 1 Occurrences starti ng 06/03/2024 until 06/03/2025 End: 05-08-2025 Flexible sigmoidoscopy study COLONOSCOPY DIAGNOSTIC Endoscopy Routine Diverticulitis Bloody stools 1 Occurrences starting 05/08/2024 until 05/08/2025 [facility] Work Phone: Comment on above: 1 Occurrences starti ng 05/08/2024 until 05/08/2025 End: 04-11-2025 MR Prostate WO and W contrast IV MRI PROSTATE WO/W IVCON Radiology Routine Prostate cancer (HCC) 1 Occurrences starting 03/12/2024 until 04/11/2025 [facility] Work Phone: Comment on above: 1 Occurrences starti ng 03/12/2024 until 04/11/2025 MR Prostate WO and W contrast IV MRI PROSTATE WO/W IVCON Radiology Routine Prostate cancer (HCC) 10/28/2024 11:[address] [facility] Work Phone: Patient Education [facility] Work Phone: Patient referral [facility] Work Phone: End: 02-13-2023 Radiologic examination pelvis 1/2 views XR PELVIS 1V AP Radiology Routine Abnormal x-ray of pelvis 1 Occurrences starting 01/14/2022 until 02/13/2023 [facility] Work Phone: Comment on above: 1 Occurrences starti ng 01/14/2022 until 02/13/2023 End: 09-26-2023 Standard ECG [facility] Comment on above: One Time for 1 Occur rences starting 09/26/2023 until 09/26/2023 End: 09-27-2023 Standard ECG [facility] Work Phone: Comment on above: One Time for 1 Occur rences starting 09/27/2023 until 09/27/[address] [facility] Work Phone: Comment on above: Release Upon Orderin g for 1 Occurrences starting 05/13/2024, 1 completed End: 05-17-2025 US Head and neck soft tissue US HEAD/NECK SOFT TISSUE OTHER Radiology Routine Neck mass 1 Occurrences starting 04/17/2024 until 05/17/2025 [facility] Work Phone: Comment on above: 1 Occurrences starti ng 04/17/2024 until 05/17/2025 XR Tibia and Fibula - right AP and Lateral XR TIBIA FIBULA 2V AP/LAT RIGHT Radiology Routine Other closed fracture of proximal end of right fibula, initial encounter 07/29/2024 4:[address] [facility] Work Phone: End: 09-19-2025 XR Tibia and Fibula - right AP and Lateral XR TIBIA FIBULA 2V AP/LAT RIGHT Radiology Routine Other closed fracture of proximal end of right fibula, initial encounter 1 Occurrences starting 08/20/2024 until 09/19/2025 [facility] Work Phone: Comment on above: 1 Occurrences starti ng 08/20/2024 until 09/19/2025 [facility] Immunizations Immunization Date Immunization Notes Care Provider Michelle landeros 04-30-2024 COVID-19 vaccine, ag e 12+ yr (PFIZER-BIONTECH COMIRNATY) Brian Ahmadi 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 Work Phone: [facility] 10-27-2020 Covid (Pfizer) [facility] 10-06-2020 Covid (Pfizer) [facility] 08-28-2018 tetanus toxoid, reduced diphtheria toxoid, and acellular pertussis vaccine, adsorbed Robert Ardon MD Work Phone: [facility] Work Phone: 06-07-2017 influenza virus vaccine, unspecified formulation Mathew Cobian MD Work Phone: [facility] 06-25-2011 tetanus toxoid, reduced diphtheria toxoid, and acellular pertussis vaccine, adsorbed Robert Ardon MD Work Phone: [facility] Payers Date Payer Category Payer Medicare (Managed Care) [facility] MEDICARE [id number] 2024 Unknown [id number] 2024 Self-pay [id number] 2021 Medicaid [id number] 2021 Unknown 2021 Unknown [employer] HB ONLY x0000 2021-Present [id number] ATTN [facility] [place] [address] Other [phone] [id number] 2021 Medicaid [employer] [id number] 2021-Present [phone] [address] [place] [address] Medicaid [id number] 2021 Medicaid [id number] 2021 Medicaid [id number] 2020 Medicare MEDICARE MEDICAR E A AND B [id number] 2020-Present [phone] [place] [address] Medicare [id number] 1992 Medicare [id number] 1992 Medicare [id number] 1967 Unknown [id number] 1967 Unknown [id number] 1967 Unknown [id number] Unknown [id number] Unknown [id number] Unknown [id number] Unknown [id number] Unknown [id number] Unknown [id number] Social History Date Type Detail Facility Start: 01-14-2022 End: 01-29-2025 Tobacco smoking status CTIS Smokes tobacco daily [facility] Start: 07-29-1993 End: 07-30-2023 History of tobacco use Cigarette Smoker [facility] Start: 09-30-2021 End: 01-20-2025 Alcohol intake Current drinker of alcohol (finding) [facility] Start: 05-19-2021 End: 12-20-2022 History SDOH Alcohol Frequency 4 [facility] Start: 05-19-2021 End: 12-20-2022 History SDOH Alcohol Std Drinks 2 [facility] Start: 09-22-2021 History SDOH Alcohol Comment 3/4 beers daily sometimes [facility] Start: 05-19-2021 End: 12-20-2022 History SDOH Social Connections Phone 5 [facility] Start: 05-19-2021 End: 06-07-2022 History SDOH Social Connections Get Together 98 [facility] Start: 05-19-2021 End: 06-07-2022 History SDOH Social Connections Congregational 1 [facility] Start: 05-19-2021 End: 12-20-2022 History SDOH Social Connections Living 7 [facility] Start: 05-19-2021 End: 12-20-2022 History SDOH Physical Activity DPW 0 [facility] Start: 05-19-2021 End: 06-07-2022 History SDOH Stress 3 [facility] Start: 02-21-2020 Education 21 [facility] Start: 04-16-2021 Tobacco Comment couple per day [facility] Start: 1965 Sex Assigned At Male [facility] Start: 02-15-2021 End: 06-07-2022 Exposure to SARS-CoV-2 (event) Not sure [facility] Work Phone: Start: 01-14-2022 End: 06-07-2022 Tobacco Comment Pt has cut back to 1/4 pack daily. [facility] Start: 02-27-2022 End: 02-28-2022 Tobacco smoking status NHIS Unknown if ever smoked [facility] Start: 11-02-2018 Occasional [facility] Start: 11-02-2018 None [facility] Start: 11-02-2018 With Family [facility] Start: 12-04-2020 Cigarettes [facility] Start: 01-14-2022 End: 07-12-2024 Cigarettes smoked current (pack per day) - Reported 1 [facility] Start: 01-14-2022 End: 03-12-2024 Tobacco use and exposure Smokeless tobacco non-user [facility] Start: 12-20-2022 End: 07-12-2024 Social connection and isolation panel [facility] Do you belong to any clubs or organizations such as anglican groups, unions, fraternal or athletic groups, or school groups? No [facility] Are you now , , , , never or living with a partner? Never [facility] Start: 06-24-2012 How often to you have a drink containing alcohol? Patient refused [facility] How many standard dr inks containing alcohol do you have on a typical day? 3 or 4 [facility] Do you feel stress - tense, restless, nervous, or anxious, or unable to sleep at night because your mind is troubled all the time - these days [OSQ] Rather much [facility] (I/We) worried fina er (my/our) food would run out before (I/we) got money to buy more. Never true [facility] Start: 06-20-2021 Gender identity Identifies as male gender (finding) [facility] Start: 06-20-2021 Sexual orientation Heterosexual (finding) [facility] Start: 09-12-2023 End: 03-12-2024 Tobacco smoking status NHIS Ex-smoker [facility] Start: 07-29-1993 End: 07-30-2023 History of tobacco use Current smoker [facility] Start: 09-26-2023 Alcohol Comment 3-4 drinks/ week [facility] Start: 1965 Sex assigned at Not on file [facility] Start: 10-17-2023 Tobacco Comment Pt has cut back to 1/4 pack daily.Vaps off and on [facility] How often to you hav e a drink containing alcohol? 2-3 time sa week [facility] How often do you hav e 6 or more drinks on 1 occasion? Less than monthly [facility] How hard is it for y ou to pay for the very basics like food, housing, medical care, and heating Not very hard [facility] Do you feel stress - tense, restless, nervous, or anxious, or unable to sleep at night because your mind is troubled all the time - these days [OSQ] Only a little [facility] Start: 04-11-2019 Tobacco Comment quit - 1 week [facility] How often to you hav e a drink containing alcohol? 2-4 times a month [facility] How often do you hav e 6 or more drinks on 1 occasion? Monthly [facility] Do you feel stress - tense, restless, nervous, or anxious, or unable to sleep at night because your mind is troubled all the time - these days [OSQ] To some extent [facility] Start: 05-08-2024 Alcohol Comment 3/4 beers per week [facility] Sexual Orientation [facility] Start: 07-20-2024 End: 11-05-2024 Sex Male (finding) [facility] Functional Status Date Assessment Result Facility 07-20-2024 Functional Status Independent Diane carlson [facility] 07-20-2024 Functional Status Standard Safet y ID band on, Call device within reach, Bed in low position, Wheels locked, Bedside Cart Locked [facility] 05-13-2024 Are you deaf, or do you have serious difficulty hearing No 05/13/2024 4:51 PM Yuni Beckett, REBA No [facility] 05-13-2024 Do you have serious difficulty walking or climbing stairs No 05/13/2024 4:51 PM Yuni Beckett, REBA No [facility] 05-13-2024 Do you have difficul ty dressing or bathing No 05/13/2024 4:51 PM Yuni Beckett, REBA No [facility] 05-13-2024 Because of a physica l, mental, or emotional condition, do you have difficulty doing errands alone such as visiting a physician's office or shopping No 05/13/2024 4:51 PM Yuni Beckett, REBA No [facility] 10-27-2014 Are you blind, or do you have serious difficulty seeing, even when wearing glasses No 10/27/2014 4:20 PM Maricarmen Huggins RN No [facility] Mental Status Date Assessment Result Facility 01-29-2025 Cognitive function Level Of Cons ciousness Awake;Alert;Appropriate;Fol lows Commands [facility] Work Phone: 01-20-2025 Cognitive function Level Of Cons ciousness Awake;Alert;Appropriate;Fol lows Commands [facility] Work Phone: 07-20-2024 Mental Status Orientation Oriented x 4 [facility] 07-20[facility]2024 [facility] 05-13-2024 Because of a physica l, mental, or emotional condition, do you have serious difficulty concentrating, remembering, or making decisions No 05/13/2024 4:51 PM EDT Yuni Santoyo RN No [facility] Clinical Notes 03-18-2021 to 04-03-2025 Telephone Encounter - Laura Whaley MA - 04/03/2025 9:41 AM EDTTelephone Encounter - Laura Whaley MA - 04/03/2025 9:41 AM EDTMargarita Mao Tech - 03/28/2025 11:10 AM EDT Note Date & Type Note Facility 04-03-2025 Telephone encount er Note Images from the original note were not included. Office received fax from [employer] asking up updated order on pressure for pt CPAP. Pt is using [employer] for his CPAP supplies. This has been faxed back to [employer] notifying them of this information. Laura Whaley MA [facility] 04-03-2025 Miscellaneous Notes Formattin g of this note might be different from the original. Images from the original note were not included. Office received fax from [employer] asking up updated order on pressure for pt CPAP. Pt is using [employer] for his CPAP supplies. This has been faxed back to [employer] notifying them of this information. Laura Whaley MA documented in this encounter [facility] 03-28-2025 History of Presen t illness Narrative Radiology Service Progress Note PATIENT NAME: Good De Luna DATE OF SERVICE: March 28, 2025 TIME: 11:14 AM PATIENT IDENTITY VERIFICATION COMPLETED USING TWO [...] Increased Observations by Caregivers PATIENT GENDER DATA: Assigned male at PATIENT RELEVANT IMPLANT DATA REVIEWED: Yes PATIENT PRESENTS WITH AN IMPLANTABLE OR ATTACHED BENCH MACHINE OPERATOR: No RADIOLOGY DEPARTMENT: General X-ray: Exam(s) Completed: Chest X-Ray PERIPHERAL IV DATA: Not applicable SIGNED BY: Artie Decker March 28, 2025 11:14 AM documented in this encounter [facility] 03-28-2025 Note HNO ID: [id number] Author: MARGARITA MAO Tech Service: ? Author Type: Sap Ppm Consultant Type: Progress Notes Filed: 03/28/2025 11:15 Note Text: Radiology Service Progress Note PATIENT NAME: Good De Luna DATE OF SERVICE: March 28, 2025 TIME: 11:14 AM PATIENT IDENTITY VERIFICATION COMPLETED USING TWO [...] Increased Observations by Caregivers PATIENT GENDER DATA: Assigned male at PATIENT RELEVANT IMPLANT DATA REVIEWED: Yes PATIENT PRESENTS WITH AN IMPLANTABLE OR ATTACHED BENCH MACHINE OPERATOR: No RADIOLOGY DEPARTMENT: General X-ray: Exam(s) Completed: Chest X-Ray PERIPHERAL IV DATA: Not applicable SIGNED BY: Artie Decker March 28, 2025 11:14 AM [facility] 03-28-2025 Note HNO ID: [id number] Author: INO ESQUEDA 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 Service: ? Author Type: Nurse Practitioner Type: Progress Notes Filed: 03/28/2025 10:56 Note Text: Chief Complaint Patient presents with: Breathing Problem HPI Good De Luna is a 59 year old male who presents here today for Above Complaints. Patient presents for Shortness of Breath only in reclining position. Patient does not have Shortness of Breath when lying flat or with activity. Patient also her for ear lavage as he was seen last week and has been treating with debrox at home. Past medical history, appointments, medications, allergies reviewed. 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 CPAP Initiate CPAP @ 7 cm of water with humidification. Mask (per patient preference) optional chin strap (if indicated) , filters, tubing, humidifier and lifetime supplies. omeprazole (PRILOSEC) 20 mg capsule Take 1 capsule by mouth once daily. fexofenadine (JOHANA ALLERGY) 180 mg tablet Take 1 tablet by mouth once daily. fluticasone (FLONASE ALLERGY RELIEF) 50 mcg/actuation nasal spray Use 1 spray in each nostril once daily. citalopram (CELEXA) 40 mg tablet Take 1 tablet by mouth once daily. levothyroxine (SYNTHROID) 150 mcg tablet Take 1 tablet by mouth once daily. cholecalciferol, vitamin D3, (VITAMIN D3 ORAL) Take 2,000 mcg by mouth once daily. multivit-min/folic/vit K/lycop (MEN'S 50 PLUS MULTIVITAMIN ORAL) Take 1 tablet by mouth once daily. vitamin b complex capsule Take 1 capsule by mouth once daily. No current facility-administered medications on file prior to visit. Social History SOCIAL HISTORY[1] Review of Symptoms REVIEW OF SYSTEMS SEE HPI EXAM: BP 107/69 Pulse 72 SpO2 96% General Appearance: Well appearing, alert, in no acute distress, well-hydrated, well nourished.. Ears: Negative findings: Left tympanic membrane normal. Mobility is good, Right tympanic membrane normal. Mobility is good, Positive findings: cerumen bilaterally, amount Small. Lungs: Lungs clear to auscultation. No wheezing, [...] Advantage Annual Wellness Visit Never done Influenza Vaccine(1) due on 03/24/2025 Colorectal Cancer Screening due on 05/13/2025 Annual PCP Team Chronic Disease Visit due on 03/18/2026 Diabetes Screening due on 01/18/2028 DTaP,Tdap,Td Vaccine(3 - Td or Tdap) due on 08/28/2028 Lipid Screening due on 09/25/2028 Prostate Cancer Screening Discussion due on 05/03/2029 Hepatitis C Screening Completed ASSESSMENT/PLAN: 1. Orthopnea - ICD9: 786.02, ICD10: R06.01 (primary diagnosis) - XR CHEST 2V FRONTAL/LAT 2. Bilateral impacted cerumen - ICD9: 380.4, ICD10: H61.23 -Cerumen significantly decreased, continue use of debrox 3 times weekly. Ino Esqueda, MORTUARY BEAUTICIAN.PLUG MACHINE OPERATOR [1] Social History Tobacco Use Smoking status: Former [...] 3/4 beers per week Drug use: No [facility] 03-28-2025 History of Presen t illness Narrative Chief Complaint Patient presents with: Breathing Problem HPI Good De Luna is a 59 year old male who presents here today for Above Complaints. Patient presents for Shortness of Breath only in reclining position. Patient does not have Shortness of Breath when lying flat or with activity. Patient also her for ear lavage as he was seen last week and has been treating with debrox at home. Past medical history, appointments, medications, allergies reviewed. 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 CPAP Initiate CPAP @ 7 cm of water with humidification. Mask (per patient preference) optional chin strap (if indicated) , filters, tubing, humidifier and lifetime supplies. omeprazole (PRILOSEC) 20 mg capsule Take 1 capsule by mouth once daily. fexofenadine (JOHANA ALLERGY) 180 mg tablet Take 1 tablet by mouth once daily. fluticasone (FLONASE ALLERGY RELIEF) 50 mcg/actuation nasal spray Use 1 spray in each nostril once daily. citalopram (CELEXA) 40 mg tablet Take 1 tablet by mouth once daily. levothyroxine (SYNTHROID) 150 mcg tablet Take 1 tablet by mouth once daily. cholecalciferol, vitamin D3, (VITAMIN D3 ORAL) Take 2,000 mcg by mouth once daily. multivit-min/folic/vit K/lycop (MEN'S 50 PLUS MULTIVITAMIN ORAL) Take 1 tablet by mouth once daily. vitamin b complex capsule Take 1 capsule by mouth once daily. No current facility-administered medications on file prior to visit. Social History SOCIAL HISTORY[1] Review of Symptoms REVIEW OF SYSTEMS SEE HPI EXAM: BP 107/69 Pulse 72 SpO2 96% General Appearance: Well appearing, alert, in no acute distress, well-hydrated, well nourished.. Ears: Negative findings: Left tympanic membrane normal. Mobility is good, Right tympanic membrane normal. Mobility is good, Positive findings: cerumen bilaterally, amount Small. Lungs: Lungs clear to auscultation. No wheezing, [...] Advantage Annual Wellness Visit Never done Influenza Vaccine(1) due on 03/24/2025 Colorectal Cancer Screening due on 05/13/2025 Annual PCP Team Chronic Disease Visit due on 03/18/2026 Diabetes Screening due on 01/18/2028 DTaP,Tdap,Td Vaccine(3 - Td or Tdap) due on 08/28/2028 Lipid Screening due on 09/25/2028 Prostate Cancer Screening Discussion due on 05/03/2029 Hepatitis C Screening Completed ASSESSMENT/PLAN: 1. Orthopnea - ICD9: 786.02, ICD10: R06.01 (primary diagnosis) - XR CHEST 2V FRONTAL/LAT 2. Bilateral impacted cerumen - ICD9: 380.4, ICD10: H61.23 -Cerumen significantly decreased, continue use of debrox 3 times weekly. Ino Esqueda 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 [1] Social History Tobacco Use Smoking status: Former [...] 3/4 beers per week Drug use: No documented in this encounter [facility] 03-28-2025 Telephone encount er Note Reason for Conversation Shortness of Breath Background Protocol recommends see provider in 4 hours. Pt scheduled today with Ino Esqueda ELEMENTARY SCHOOL TEACHER at 1040 am. Care plan reviewed with patient. Patient voices understanding. Advised patient that if symptoms get worse to be evaluated in Urgent Care or ER. Disposition SEE HCP (OR PCP TRIAGE) WITHIN 4 HOURS Reason for Disposition [1] MILD difficulty breathing (e.g., minimal/no SOB at rest, SOB with walking, pulse <100) AND [2] NEW-onset or WORSE than normal 1. RESPIRATORY STATUS: Pt reports shortness of breath when reclining in his recliner every now and then. 2. ONSET: This breathing problem began a couple months ago. 3. PATTERN The difficult breathing comes and goes. 4. SEVERITY: - MILD: No SOB at rest, mild SOB with walking, speaks normally in sentences, can lie down, no retractions, pulse < 100. - MODERATE: SOB at rest, SOB with minimal exertion and prefers to sit, cannot lie down flat, speaks in phrases, mild retractions, audible wheezing, pulse 100 to 120. - SEVERE: Very SOB at rest, speaks in single words, struggling to breathe, sitting hunched forward, retractions, pulse > 120 Pt reports this only happens when he is reclined in his recliner and comes and goes. He states when he lays down to go to bed he is fine and when up moving around. Pt reports Shortness of Breath is mild. 5. RECURRENT SYMPTOM: Denies having had difficulty breathing before. 6. CARDIAC HISTORY: Pt denies history of heart disease such as heart attack, angina, bypass surgery, or angioplasty. 7. LUNG HISTORY: Pt denies any history of lung disease such as pulmonary embolus, asthma, or emphysema. 8. CAUSE: Does not know what is causing the breathing problem. States he quit smoking 2 years ago. States he will vape every now and then, but doesn't even like doing that anymore. 9. OTHER SYMPTOMS: Pt denies chest pain, cough, fever, or runny nose. Pt reports dizziness, hot flashes, and sweating. 10. O2 SATURATION MONITOR: Pt does not have a pulse ox 11. : N/A 12. TRAVEL: Denies travel out of the country in the last month. Hasn't been exposed to anyone with anything. No Additional Information on file. Protocols Used Breathing [id number] [facility] 03-28-2025 Miscellaneous Notes Formattin g of this note might be different from the original. Reason for Conversation Shortness of Breath Background Protocol recommends see provider in 4 hours. Pt scheduled today with Ino Esqueda ELEMENTARY SCHOOL TEACHER at 1040 am. Care plan reviewed with patient. Patient voices understanding. Advised patient that if symptoms get worse to be evaluated in Urgent Care or ER. Disposition SEE HCP (OR PCP TRIAGE) WITHIN 4 HOURS Reason for Disposition [1] MILD difficulty breathing (e.g., minimal/no SOB at rest, SOB with walking, pulse <100) AND [2] NEW-onset or WORSE than normal 1. RESPIRATORY STATUS: Pt reports shortness of breath when reclining in his recliner every now and then. 2. ONSET: This breathing problem began a couple months ago. 3. PATTERN The difficult breathing comes and goes. 4. SEVERITY: - MILD: No SOB at rest, mild SOB with walking, speaks normally in sentences, can lie down, no retractions, pulse < 100. - MODERATE: SOB at rest, SOB with minimal exertion and prefers to sit, cannot lie down flat, speaks in phrases, mild retractions, audible wheezing, pulse 100 to 120. - SEVERE: Very SOB at rest, speaks in single words, struggling to breathe, sitting hunched forward, retractions, pulse > 120 Pt reports this only happens when he is reclined in his recliner and comes and goes. He states when he lays down to go to bed he is fine and when up moving around. Pt reports Shortness of Breath is mild. 5. RECURRENT SYMPTOM: Denies having had difficulty breathing before. 6. CARDIAC HISTORY: Pt denies history of heart disease such as heart attack, angina, bypass surgery, or angioplasty. 7. LUNG HISTORY: Pt denies any history of lung disease such as pulmonary embolus, asthma, or emphysema. 8. CAUSE: Does not know what is causing the breathing problem. States he quit smoking 2 years ago. States he will vape every now and then, but doesn't even like doing that anymore. 9. OTHER SYMPTOMS: Pt denies chest pain, cough, fever, or runny nose. Pt reports dizziness, hot flashes, and sweating. 10. O2 SATURATION MONITOR: Pt does not have a pulse ox 11. : N/A 12. TRAVEL: Denies travel out of the country in the last month. Hasn't been exposed to anyone with anything. No Additional Information on file. Protocols Used Breathing [id number] documented in this encounter [facility] 03-28-2025 Telephone encount er Note Calling to triage Pt. Renard Lo RN [facility] 03-28-2025 Miscellaneous Notes Formattin g of this note might be different from the original. Calling to triage Pt. Renard Lo RN documented in this encounter [facility] 03-18-2025 Note HNO ID: [id number] Author: INO ESQUEDA 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 Service: ? Author Type: Nurse Practitioner Type: Progress Notes Filed: 03/18/2025 11:59 Note Text: Chief Complaint Patient presents with: Follow Up HPI Good De Luna is a 59 year old male who presents here today for Above Complaints.. Patient presents for CPAP follow up. Patient has been using CPAP nightly and reports improved daytime wakefulness and increased energy. Past medical history, appointments, medications, allergies reviewed. 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 Mask (per patient preference) optional chin strap (if indicated) , filters, tubing, humidifier and lifetime supplies. omeprazole (PRILOSEC) 20 mg capsule Take 1 capsule by mouth once daily. fexofenadine (JOHANA ALLERGY) 180 mg tablet Take 1 tablet by mouth once daily. fluticasone (FLONASE ALLERGY RELIEF) 50 mcg/actuation nasal spray Use 1 spray in each nostril once daily. citalopram (CELEXA) 40 mg tablet Take 1 tablet by mouth once daily. levothyroxine (SYNTHROID) 150 mcg tablet Take 1 tablet by mouth once daily. cholecalciferol, vitamin D3, (VITAMIN D3 ORAL) Take 2,000 mcg by mouth once daily. multivit-min/folic/vit K/lycop (MEN'S 50 PLUS MULTIVITAMIN ORAL) Take 1 tablet by mouth once daily. vitamin b complex capsule Take 1 capsule by mouth once daily. No current facility-administered medications on file prior to visit. Social History SOCIAL HISTORY[1] Review of Symptoms REVIEW OF SYSTEMS SEE HPI EXAM: BP 110/66 Pulse (!) 56 Wt 96 kg (211 lb 10.3 oz) BMI 35.22 kg/m? General Appearance: Well appearing, alert, in [...] Medicare Advantage Annual Wellness Visit Never done Colorectal Cancer Screening due on 05/13/2025 Influenza Vaccine(1) due on 03/24/2025 Annual PCP Team Chronic Disease Visit due on 01/28/2026 Diabetes Screening due on 01/18/2028 DTaP,Tdap,Td Vaccine(3 - Td or Tdap) due on 08/28/2028 Lipid Screening due on 09/25/2028 Prostate Cancer Screening Discussion due on 05/03/2029 Hepatitis C Screening Completed ASSESSMENT/PLAN: 1. Obstructive sleep apnea syndrome - ICD9: 327.23, ICD10: G47.33 -Compliant with CPAP use nightly with improved symptoms. Continue CPAP. Ino Esqueda 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 [1] Social History Tobacco Use Smoking status: Former [...] 3/4 beers per week Drug use: No [facility] 03-18-2025 History of Presen t illness Narrative Chief Complaint Patient presents with: Follow Up HPI Good De Luna is a 59 year old male who presents here today for Above Complaints.. Patient presents for CPAP follow up. Patient has been using CPAP nightly and reports improved daytime wakefulness and increased energy. Past medical history, appointments, medications, allergies reviewed. 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 Mask (per patient preference) optional chin strap (if indicated) , filters, tubing, humidifier and lifetime supplies. omeprazole (PRILOSEC) 20 mg capsule Take 1 capsule by mouth once daily. fexofenadine (JOHANA ALLERGY) 180 mg tablet Take 1 tablet by mouth once daily. fluticasone (FLONASE ALLERGY RELIEF) 50 mcg/actuation nasal spray Use 1 spray in each nostril once daily. citalopram (CELEXA) 40 mg tablet Take 1 tablet by mouth once daily. levothyroxine (SYNTHROID) 150 mcg tablet Take 1 tablet by mouth once daily. cholecalciferol, vitamin D3, (VITAMIN D3 ORAL) Take 2,000 mcg by mouth once daily. multivit-min/folic/vit K/lycop (MEN'S 50 PLUS MULTIVITAMIN ORAL) Take 1 tablet by mouth once daily. vitamin b complex capsule Take 1 capsule by mouth once daily. No current facility-administered medications on file prior to visit. Social History SOCIAL HISTORY[1] Review of Symptoms REVIEW OF SYSTEMS SEE HPI EXAM: BP 110/66 Pulse (!) 56 Wt 96 kg (211 lb 10.3 oz) BMI 35.22 kg/m General Appearance: Well appearing, alert, in [...] Medicare Advantage Annual Wellness Visit Never done Colorectal Cancer Screening due on 05/13/2025 Influenza Vaccine(1) due on 03/24/2025 Annual PCP Team Chronic Disease Visit due on 01/28/2026 Diabetes Screening due on 01/18/2028 DTaP,Tdap,Td Vaccine(3 - Td or Tdap) due on 08/28/2028 Lipid Screening due on 09/25/2028 Prostate Cancer Screening Discussion due on 05/03/2029 Hepatitis C Screening Completed ASSESSMENT/PLAN: 1. Obstructive sleep apnea syndrome - ICD9: 327.23, ICD10: G47.33 -Compliant with CPAP use nightly with improved symptoms. Continue CPAP. Ino Esqueda 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 [1] Social History Tobacco Use Smoking status: Former [...] 3/4 beers per week Drug use: No documented in this encounter [facility] 03-14-2025 Telephone encount er Note Pt scheduled with Ino Esqueda 03/18/25. Form placed on MA's desk. Laura Whaley MA [facility] 03-14-2025 Miscellaneous Notes Formattin g of this note might be different from the original. Pt scheduled with Ino Esqueda 03/18/25. Form placed on MA's desk. Laura Whaley MA If he has no recent office visits for JODEE then he needs one to document his use of CPAP Mathew Cobian MD Pt should have appt to discuss JODEE. [facility] requesting Office note within the last year discussing use and benefits of PAP machine. No recent visits discussing his sleep apnea. Laura Whaley MA Abhinav with [facility] is calling due to they just received a fax for an order for patients cpap and they are noting a pressure change form 8 to 7. They would just like to confirm that you want this change as patient as not aware for this. please review and advise and contact Abhinav back with information. documented in this encounter [facility] 03-14-2025 Telephone encount er Note If he has no recent office visits for JODEE then he needs one to document his use of CPAP Mathew Cobian MD [facility] 03-14-2025 Telephone encount er Note Pt should have appt to discuss JODEE. [facility] requesting Office note within the last year discussing use and benefits of PAP machine. No recent visits discussing his sleep apnea. Laura Whaley MA [facility] 03-14-2025 Telephone encount er Note Abhinav with [facility] is calling due to they just received a fax for an order for patients cpap and they are noting a pressure change form 8 to 7. They would just like to confirm that you want this change as patient as not aware for this. please review and advise and contact Abhinav back with information. [facility] 03-14-2025 Telephone encount er Note Office received fax from [employer] stating that they are unable to provide equipment for CPAP because pt is using [facility] for his JODEE supplies. Order sent to [facility]. Laura Whaley MA [facility] 03-14-2025 Miscellaneous Notes Formattin g of this note might be different from the original. Office received fax from [facility] stating that they are unable to provide equipment for CPAP because pt is using [facility] for his JODEE supplies. Order sent to [facility]. Laura Whaley MA documented in this encounter [facility] 03-13-2025 Telephone encount er Note OK to refill as ordered Mathew Cobian MD [facility] 03-13-2025 Miscellaneous Notes Formattin g of this note might be different from the original. OK to refill as ordered Mathew Cobian MD The patient has been identified by name and date of : Yes Caregiver verified no other encounters exist for this prescription request: Yes Caregiver confirmed with patient/requestor that no other refills are due, in the near future, with this provider at this time: Yes The last office visit in the department: 01/28/2025 Does the patient have a future office visit with this provider/department: No Requested Prescriptions Pending Prescriptions Disp Refills CPAP 1 each 0 Sig: Initiate CPAP @ 7 cm of water with humidification. Mask (per patient preference) optional chin strap (if indicated) , filters, tubing, humidifier and lifetime supplies. omeprazole (PRILOSEC) 20 mg capsule 90 capsule Sig: Take 1 capsule by mouth once daily. fexofenadine (JOHANA ALLERGY) 180 mg tablet 30 tablet Sig: Take 1 tablet by mouth once daily. Patient should have an order for johana at [facility] but wants it at [facility] and is having trouble transferring it. Also, requesting new orders for CPAP supplies to be faxed to [facility] as current supplier doesn't accept [employer]. Lissa Rich RN March 13, 2025 12:13 PM documented in this encounter [facility] 03-13-2025 Telephone encount er Note The patient has been identified by name and date of : Yes Caregiver verified no other encounters exist for this prescription request: Yes Caregiver confirmed with patient/requestor that no other refills are due, in the near future, with this provider at this time: Yes The last office visit in the department: 01/28/2025 Does the patient have a future office visit with this provider/department: No Requested Prescriptions Pending Prescriptions Disp Refills CPAP 1 each 0 Sig: Initiate CPAP @ 7 cm of water with humidification. Mask (per patient preference) optional chin strap (if indicated) , filters, tubing, humidifier and lifetime supplies. omeprazole (PRILOSEC) 20 mg capsule 90 capsule Sig: Take 1 capsule by mouth once daily. fexofenadine (JOHANA ALLERGY) 180 mg tablet 30 tablet Sig: Take 1 tablet by mouth once daily. Patient should have an order for johana at [facility] but wants it at [facility] and is having trouble transferring it. Also, requesting new orders for CPAP supplies to be faxed to [facility] as current supplier doesn't accept [employer]. Lissa Rich RN March 13, 2025 12:13 PM [facility] 02-27-2025 Note HNO ID: [id number] Author: KEISHA HEATH MA Service: ? Author Type: Food Service Supervisor Type: Progress Notes Filed: 02/27/2025 15:56 Note Text: POPULATION HEALTH NAVIGATION OUTREACH Action/FYI Contacted patient to schedule HCC care gaps and health maintenance. 1st attempt: Left message with my direct number 2nd attempt: My Chart message sent Topic Due (Y or N) Comments Annual Wellness Exam Yes PCP Follow up No Colorectal Cancer Screening Yes Due 04/2025 A1C No HTN/Controlling BP No HCC Yes Updated appointment notes No Reason for Outreach Care Gap/HCC or Scheduling Wellness Visits Care Gaps due: Medicare Annual Wellness Visit Colorectal Cancer Screening Patient Contacted: Unable or unnecessary to reach patient: Left message BehavioSechart message sent HCC related Navigation Signature: Keisha Heath MA February 27, 2025 3:55 PM [facility] 02-27-2025 Note Patient Outreach (NE TNAV) GOOD DE LUNA ([id number]) 1965 M Date Time Provider Department 02/27/25 KEISHA HEATH During your visit today, we recorded the following information about you: Keisha Heath MA 02/27/2025 3:56 PM Signed POPULATION HEALTH NAVIGATION OUTREACH Action/FYI Contacted patient to schedule HCC care gaps and health maintenance. 1st attempt: Left message with my direct number 2nd attempt: My Chart message sent Topic Due (Y or N) Comments Annual Wellness Exam Yes PCP Follow up No Colorectal Cancer Screening Yes Due 04/2025 A1C No HTN/Controlling BP No HCC Yes Updated appointment notes No Reason for Outreach Care Gap/HCC or Scheduling Wellness Visits Care Gaps due: Medicare Annual Wellness Visit Colorectal Cancer Screening Patient Contacted: Unable or unnecessary to reach patient: Left message BehavioSechart message sent HCC related Navigation Signature: Keisha Heath MA February 27, 2025 3:55 PM Allergies As of Date: 02/27/2025 (No Known Allergies) Date Reviewed: 01/28/2025 Reviewed by: Margarita Ferrara MA - Fully Assessed Reason for Visit: Population Health Navigation Outreach [3910] Cmt: Tarun/Saad/DESIREE Prescriptions as of 02/27/2025 - LORazepam (ATIVAN) 0.5 mg Take 1-2 tablets by mouth once daily as needed for up to 30 days. - fexofenadine (JOHANA ALLERGY) 180 mg tablet Take 1 tablet by mouth once daily. - fluticasone (FLONASE ALLERGY RELIEF) 50 mcg/actuation [...] once daily. Problem List As Of Date 02/27/2025 Noted Resolved Sleep apnea [G47.30] 09/22/2008 Hypothyroidism [...] Rectal bleeding [K62.5] 05/12/2024 Encounter Status:Closed by KEISHA HEATH on 02/27/25 [facility] 02-11-2025 Telephone encount er Note OK to refill as ordered Mathew Cobian MD [facility] 02-11-2025 Miscellaneous Notes Formattin g of this note might be different from the original. OK to refill as ordered Mathew Cobian MD The patient has been identified by name and date of : Yes Caregiver verified no other encounters exist for this prescription request: Yes Caregiver confirmed with patient/requestor that no other refills are due, in the near future, with this provider at this time: Yes The last office visit in the department: 01/28/2025 Does the patient have a future office visit with this provider/department: No Requested Prescriptions Pending Prescriptions Disp Refills LORazepam (ATIVAN) 0.5 mg 60 tablet 0 Sig: Take 1-2 tablets by mouth once daily as needed for up to 30 days. Lissa Rich RN February 11, 2025 11:59 AM documented in this encounter [facility] 02-11-2025 Telephone encount er Note The patient has been identified by name and date of : Yes Caregiver verified no other encounters exist for this prescription request: Yes Caregiver confirmed with patient/requestor that no other refills are due, in the near future, with this provider at this time: Yes The last office visit in the department: 01/28/2025 Does the patient have a future office visit with this provider/department: No Requested Prescriptions Pending Prescriptions Disp Refills LORazepam (ATIVAN) 0.5 mg 60 tablet 0 Sig: Take 1-2 tablets by mouth once daily as needed for up to 30 days. Lissa Rich RN February 11, 2025 11:59 AM [facility] 01-31-2025 Note HNO ID: [id number] Author: ?, ?, ? Service: ? Author Type: ? Type: Progress Notes Filed: 01/31/2025 14:21 Note Text: POPULATION HEALTH NAVIGATION OUTREACH Action/[facility] Support: Called pt to schedule an appt in Pain Management. No answer, lvm for pt to call [phone] for scheduling. Any agent can assist. Reason for Outreach Care Gap/HCC or Scheduling Wellness Visits Care Gaps due: N/A Patient Contacted: Unable or unnecessary to reach patient: Left message Unii message sent Navigation Signature: Rochelle Woody January 31, 2025 2:20 PM [facility] 01-31-2025 History of Presen t illness Narrative POPULATION HEALTH NAVIGATION OUTREACH Action/[facility] Support: Called pt to schedule an appt in Pain Management. No answer, lvm for pt to call [phone] for scheduling. Any agent can assist. Reason for Outreach Care Gap/HCC or Scheduling Wellness Visits Care Gaps due: N/A Patient Contacted: Unable or unnecessary to reach patient: Left message Unii message sent Navigation Signature: Rochelle Woody January 31, 2025 2:20 PM documented in this encounter [facility] 01-31-2025 Note Patient Outreach (NE TNAV) GOOD DE LUNA ([id number]) 1965 M Date Time Provider Department 01/31/25 NO PCP (HIST) WES During your visit today, we recorded the following information about you: Rochelle Woody 01/31/2025 2:21 PM Signed POPULATION HEALTH NAVIGATION OUTREACH Action/[facility] Support: Called pt to schedule an appt in Pain Management. No answer, lvm for pt to call [phone] for scheduling. Any agent can assist. Reason for Outreach Care Gap/HCC or Scheduling Wellness Visits Care Gaps due: N/A Patient Contacted: Unable or unnecessary to reach patient: Left message Unii message sent Navigation Signature: Rochelle Woody January 31, 2025 2:20 PM Allergies As of Date: 01/31/2025 (No Known Allergies) Date Reviewed: 01/28/2025 Reviewed by: Margarita Ferrara MA - Fully Assessed Prescriptions as of 01/31/2025 - nystatin (MYCOSTATIN) 100,000 unit/mL suspension Take 5 mL by mouth four times daily for 7 days. Swish and swallow. - fexofenadine (JOHANA ALLERGY) 180 mg tablet Take 1 tablet [...] once daily. Problem List As Of Date 01/31/2025 Noted Resolved Sleep apnea [G47.30] 09/22/2008 Hypothyroidism [...] Rectal bleeding [K62.5] 05/12/2024 Encounter Status:Closed by ROCHELLE WOODY on 01/31/25 [facility] 01-30-2025 Telephone encount er Note Pt called and is notified of providers messge. Pt voices understanding. Renard Lo RN [facility] 01-30-2025 Miscellaneous Notes Formattin g of this note might be different from the original. Pt called and is notified of providers messge. Pt voices understanding. Renard Lo RN Please let patient know it may take longer than 5 doses for symptoms to improve. Patient calls and states that he has had 5 doses of the nystatin. Patient states that thrush is not getting any better. Patient has been taking ibuprofen and tylenol but has been taking more than recommended due to pain. Patient asking what else he can do? Please review and advise, Uma Jett RN documented in this encounter [facility] 01-30-2025 Telephone encount er Note Please let patient know it may take longer than 5 doses for symptoms to improve. [facility] 01-29-2025 Telephone encount er Note Patient calls and states that he has had 5 doses of the nystatin. Patient states that thrush is not getting any better. Patient has been taking ibuprofen and tylenol but has been taking more than recommended due to pain. Patient asking what else he can do? Please review and advise, Uma Jett RN [facility] 01-28-2025 Note HNO ID: [id number] Author: INO ESQUEDA 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 Service: ? Author Type: Nurse Practitioner Type: Progress Notes Filed: 01/28/2025 10:53 Note Text: Chief Complaint Patient presents with: Sore Throat sore tongue HPI Good De Luna is a 59 year old male who presents here today for Above Complaints. Patient presents for sore tongue and throat x4 days. Recently on atb for diverticulitis. Past medical history, appointments, medications, allergies reviewed. 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 Vaps off and on Vaping Use Vaping status: Some Days Substances: Nicotine Substance Use Topics Alcohol use: Yes Comment: 3/4 beers per week Drug use: No Review of Symptoms REVIEW OF SYSTEMS SEE HPI EXAM: BP 113/73 Pulse 65 Wt 99 kg (218 lb 4.1 oz) BMI 36.32 kg/m? General Appearance: Well appearing, alert, in no acute distress, well-hydrated, well nourished. Oropharynx: Positive findings: thrush. Health Maintenance List HIV Screening Never done Hepatitis B Vaccine(1 of 3 - 19+ 3-dose series) Never done Shingrix Vaccine(1 of 2) Never done Pneumococcal Vaccine: 50+(1 of 1 - PCV) Never done Lung Cancer Screening due on 06/08/2022 Medicare Advantage Annual Wellness Visit Never done Influenza Vaccine(1) due on 03/24/2025 Colorectal Cancer Screening due on 05/13/2025 Annual PCP Team Chronic Disease Visit due on 01/17/2026 Diabetes Screening due on 01/18/2028 DTaP,Tdap,Td Vaccine(3 - Td or Tdap) due on 08/28/2028 Lipid Screening due on 09/25/2028 Prostate Cancer Screening Discussion due on 05/03/2029 Hepatitis C Screening Completed Covid-19 Vaccine Completed ASSESSMENT/PLAN: 1. Thrush - ICD9: 112.0, ICD10: B37.0 - [place] 100,000 UNIT/ML ORAL SUSPENSION Ino Esqueda APRN.[facility] 01-28-2025 History of Presen t illness Narrative Chief Complaint Patient presents with: Sore Throat sore tongue HPI Good De Luna is a 59 year old male who presents here today for Above Complaints. Patient presents for sore tongue and throat x4 days. Recently on atb for diverticulitis. Past medical history, appointments, medications, allergies reviewed. 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 Vaps off and on Vaping Use Vaping status: Some Days Substances: Nicotine Substance Use Topics Alcohol use: Yes Comment: 3/4 beers per week Drug use: No Review of Symptoms REVIEW OF SYSTEMS SEE HPI EXAM: BP 113/73 Pulse 65 Wt 99 kg (218 lb 4.1 oz) BMI 36.32 kg/m General Appearance: Well appearing, alert, in no acute distress, well-hydrated, well nourished. Oropharynx: Positive findings: thrush. Health Maintenance List HIV Screening Never done Hepatitis B Vaccine(1 of 3 - 19+ 3-dose series) Never done Shingrix Vaccine(1 of 2) Never done Pneumococcal Vaccine: 50+(1 of 1 - PCV) Never done Lung Cancer Screening due on 06/08/2022 Medicare Advantage Annual Wellness Visit Never done Influenza Vaccine(1) due on 03/24/2025 Colorectal Cancer Screening due on 05/13/2025 Annual PCP Team Chronic Disease Visit due on 01/17/2026 Diabetes Screening due on 01/18/2028 DTaP,Tdap,Td Vaccine(3 - Td or Tdap) due on 08/28/2028 Lipid Screening due on 09/25/2028 Prostate Cancer Screening Discussion due on 05/03/2029 Hepatitis C Screening Completed Covid-19 Vaccine Completed ASSESSMENT/PLAN: 1. Thrush - ICD9: 112.0, ICD10: B37.0 - [place] 100,000 UNIT/ML ORAL SUSPENSION Ino Esqueda 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 documented in this encounter [facility] 01-27-2025 Note HNO ID: [id number] Author: MEGA LOJA PA-C Service: ? Author Type: Physician Medical Billing Representative Type: Progress Notes Filed: 01/27/2025 09:38 Note Text: [facility] Subjective Good De Luna is a 59 year old male. Patient presents with: Sore Throat: swollen tongue x 1 day HPI Sore Throat: - Onset yesterday morning. - Associated with a sore tongue and difficulty speaking. - Mild ear discomfort. - Denies cough or emesis. - Taking Claritin and Flonase once daily for allergies. - Recent negative strep test. Diverticulitis: - Recent flare-up last week. Review of Systems Ears/Nose/Mouth/Throat: (+) ear pain, (+) sore tongue, (+) dysphonia Respiratory: (-) cough Gastrointestinal: (-) vomiting Objective BP 124/80 Pulse 78 Temp 36.6 ?C (97.8 ?F) Resp 18 Wt 100.9 kg (222 lb 7.1 oz) SpO2 94% BMI 37.02 kg/m? Physical Exam General: No acute distress. HEENT: Erythematous oropharynx, significant post-nasal drainage. CV: Regular heart rate. Resp: Clear breath sounds bilaterally. Abd: Normoactive bowel sounds. 1. Sore throat (J02.9) - Onset yesterday morning, associated with discomfort and difficulty speaking. - Physical exam reveals erythema in the oropharynx. - Rapid strep test negative. - Advised increasing Flonase to twice daily for 5 days to reduce inflammation and drainage. - Avoid ibuprofen and steroids due to recent diverticulitis flare last week. - Encouraged adequate hydration. 2. Allergic rhinitis, unspecified seasonality, unspecified trigger (J30.9) - Currently managed with Claritin and Flonase. - Advised increasing Flonase to twice daily for 5 days to manage increased drainage. - Discussed minimal side effects of Flonase. - Use Flonase nasal spray twice daily for the next five days to reduce drainage and throat inflammation. - Continue taking Claritin as part of your current allergy regimen. - Avoid ibuprofen and any systemic steroids because of your recent diverticulitis flare. - Drink plenty of fluids to help soothe your throat. - Your paperwork and care plan are available in [facility]. MDM Procedures [facility] 01-27-2025 History of Presen t illness Narrative [facility] Subjective Good De Luna is a 59 year old male. Patient presents with: Sore Throat: swollen tongue x 1 day HPI Sore Throat: - Onset yesterday morning. - Associated with a sore tongue and difficulty speaking. - Mild ear discomfort. - Denies cough or emesis. - Taking Claritin and Flonase once daily for allergies. - Recent negative strep test. Diverticulitis: - Recent flare-up last week. Review of Systems Ears/Nose/Mouth/Throat: (+) ear pain, (+) sore tongue, (+) dysphonia Respiratory: (-) cough Gastrointestinal: (-) vomiting Objective BP 124/80 Pulse 78 Temp 36.6 C (97.8 F) Resp 18 Wt 100.9 kg (222 lb 7.1 oz) SpO2 94% BMI 37.02 kg/m Physical Exam General: No acute distress. HEENT: Erythematous oropharynx, significant post-nasal drainage. CV: Regular heart rate. Resp: Clear breath sounds bilaterally. Abd: Normoactive bowel sounds. 1. Sore throat (J02.9) - Onset yesterday morning, associated with discomfort and difficulty speaking. - Physical exam reveals erythema in the oropharynx. - Rapid strep test negative. - Advised increasing Flonase to twice daily for 5 days to reduce inflammation and drainage. - Avoid ibuprofen and steroids due to recent diverticulitis flare last week. - Encouraged adequate hydration. 2. Allergic rhinitis, unspecified seasonality, unspecified trigger (J30.9) - Currently managed with Claritin and Flonase. - Advised increasing Flonase to twice daily for 5 days to manage increased drainage. - Discussed minimal side effects of Flonase. - Use Flonase nasal spray twice daily for the next five days to reduce drainage and throat inflammation. - Continue taking Claritin as part of your current allergy regimen. - Avoid ibuprofen and any systemic steroids because of your recent diverticulitis flare. - Drink plenty of fluids to help soothe your throat. - Your paperwork and care plan are available in [facility]. MDM Procedures documented in this encounter [facility] 01-23-2025 Telephone encount er Note [employer] message sent to patient Margaritamelissa Ferrara MA [facility] 01-23-2025 Miscellaneous Notes Formattin g of this note might be different from the original. [employer] message sent to patient Margarita Ferrara MA Please let patient know their labs are WNL. documented in this encounter [facility] 01-23-2025 Telephone encount er Note Please let patient know their labs are WNL. [facility] Work Phone: 01-21-2025 Radiology Diagnostic study note [facility] Imaging Services [address] [place] [address] [id number] Brain/Head without Contrast MR#: [id number] Acct: [id number] Name: GOOD DE LUNA Rep #: [id number] : 1965 M 59 From: Paulina Nayak MD PCP: Dr. Mathew Cobian MD Status: RE G ER Study:Brain/Head without Contrast Date of Exa m: 01/21/25 Exam# [id number] Ordering Dr: Ramona Koch DO PROCEDURE: BRAIN/HEAD WITHOUT CONTRAST 01/21/2025 REASON FOR EXAM: DIZZINESS TECHNIQUE: BRAIN/HEAD WITHOUT CONTRAST Coronal and Sagittal reconstruction series were provided. One or more dose reduction techniques were used (e.g., Automated exposure control, adjustment of the mA and/or kV according to patient size, use of iterative reconstruction technique. RADIATION DOSE SUMMARY: CTDlvol: 45 mGy DLP: 847 mGycm COMPARISON: 09/26/2023 FINDINGS: There is a stable hyperdensity, in the right frontal white matter, series 2 image 24, measuring up to 1.2 cm, most likely a vascular anomaly. No acute abnormal brain densities. Mild white matter change. Mild atrophy. Noacute abnormal brain densities. No intracranial hemorrhage. No hydrocephalus or midline shift. Bilateral proptosis. No acute scalp or skull pathology. Clear sinuses, mastoid air cells, middle ear cavities. CT/Brain/Head without Contrast IMPRESSION: No acute intracranial findings. Reading Location: [place] [address] CC: Dr. Mathew Cobian MD; Jj Koch DO ~ Gi Asst: Signed [facility] 01-17-2025 Telephone encount er Note Pt called and is notified of providers results and instructions. Pt voices understanding. Transferred to scheduled to set up appt with General Surgery. Renard Lo RN [facility] 01-17-2025 Miscellaneous Notes Formattin g of [...] was just in to see Ino Esqueda NP today. He wanted to know what provider [...] fever. 10. : N/A Protocols used: Rectal Iqdxwies-VCZLV-MW documented in this encounter [facility] 01-17-2025 Telephone encount er Note CBC is stable. Schedule with general surgery for repeat scope FRANCIA. Complete antibiotics that were given for diverticulitis. Proceed to ER if fever, abdominal pain, rectal bleeding with no BM. [facility] 01-17-2025 Telephone encount er Note Protocol recommends see provider in 24 hours. Pt was just in to see Ino Esqueda NP today. He wanted to know what provider [...] fever. 10. : N/A Protocols used: Rectal Wwwphpgj-ELNSP-BX [facility] 01-17-2025 Note HNO ID: [id number] Author: INO ESQUEDA 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 Service: ? Author Type: Nurse Practitioner Type: [...] times a day for 7 days. fexofenadine (JOHANA ALLERGY) 180 mg tablet Take 1 tablet [...] 724.3, ICD10: G (more content not included)... [facility] 01-17-2025 History of Presen t illness [...] times a day for 7 days. fexofenadine (JOHANA ALLERGY) 180 mg tablet Take 1 tablet [...] - CONSULT TO PAIN MGT Ino Esqueda 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 documented in this encounter [facility] 01-14-2025 Telephone encount er Note Patient calling regarding medication question. Patient was seen in the office today for Diverticulitis and wants to know if he needs to take both antibiotics prescribed, Omnicef & Flagyl? He states that the last time he had Diverticulitis he was only prescribed one medication. Conferenced to [facility] nickel plant operator Chris at phone number ([phone]) for assistance. Informed patient that if unable to reach anyone in the office to call back tomorrow during normal business hours, verbalized understanding. [facility] 01-14-2025 Miscellaneous Notes Formattin g of this note might be different from the original. Patient calling regarding medication question. Patient was seen in the office today for Diverticulitis and wants to know if he needs to take both antibiotics prescribed, Omnicef & Flagyl? He states that the last time he had Diverticulitis he was only prescribed one medication. Conferenced to [facility] nickel plant operator Chris at phone number ([phone]) for assistance. Informed patient that if unable to reach anyone in the office to call back tomorrow during normal business hours, verbalized understanding. documented in this encounter [facility] 01-14-2025 Note HNO ID: [id number] Author: INO ESQUEDA 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 Service: ? Author Type: Nurse Practitioner Type: [...] File Prior to Visit Medication Sig fexofenadine (JOHANA ALLERGY) 180 mg tablet Take 1 tablet [...] L91.8 - CONSULT TO DERMATOLOGY Ino Esqueda APRN.[facility] 01-14-2025 History of Presen t illness [...] File Prior to Visit Medication Sig fexofenadine (JOHANA ALLERGY) 180 mg tablet Take 1 tablet [...] L91.8 - CONSULT TO DERMATOLOGY Ino Esqueda 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 documented in this encounter [facility] 01-10-2025 Telephone encount er Note Pt notified. Laura Whaley MA [facility] 01-10-2025 Miscellaneous Notes Formattin g of this note might be different from the original. Pt notified. Laura Whaley MA OK to switch to Johana as ordered Mathew Cobian MD Pt reports he is struggling with allergies. States he was tested and has allergies to everything. Reports no Shortness of Breath, no headache. Has drainage that bothers his ears. No ear pain. Reports the claritin really does not help with his allergies. Asking if pcp can order something different. Teena Mcneil. documented in this encounter [facility] 01-10-2025 Telephone encount er Note OK to switch to Johana as ordered Mathew Cobian MD [facility] 01-10-2025 Telephone encount er Note Pt reports he is struggling with allergies. States he was tested and has allergies to everything. Reports no Shortness of Breath, no headache. Has drainage that bothers his ears. No ear pain. Reports the claritin really does not help with his allergies. Asking if pcp can order something different. [facility]. [facility] 12-25-2024 Note HNO ID: [id number] Author: GREYSON ELLSWORTH 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 Service: ? Author Type: Nurse Practitioner Type: [...] Claritin follow up with pcp. Greyson Ellsworth 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 History and Record Review Clinical information obtained [...] suggestive and no evidence on imaging - RELIGIOUS LEADER Disposition The patient was discharged. OTC Medications were advised: Tylenol as needed [facility] 12-25-2024 History of Presen t illness [...] Claritin follow up with pcp. Greyson Ellsworth APRN.CNP History and Record Review Clinical information obtained [...] suggestive and no evidence on imaging - RELIGIOUS LEADER Disposition The patient was discharged. OTC Medications were advised: Tylenol as needed documented in this encounter [facility] 12-25-2024 Telephone encount er Note Patient calls for sore throat and strep exposure. Nurse triage recommends contact PCP office. Offered appointment for evaluation. Patient not able to come in for the times available. Patient will have daughter take him to [facility] for evaluation when it works for her [...] difficulty breathing, headache, rash Protocols used: Sore Tbbcnv-IQHNZ-UG [facility] 12-25-2024 Miscellaneous Notes Formattin g of this note might be different from the original. Patient calls for sore throat and strep exposure. Nurse triage recommends contact PCP office. Offered appointment for evaluation. Patient not able to come in for the times available. Patient will have daughter take him to [facility] for evaluation when it works for her [...] difficulty breathing, headache, rash Protocols used: Sore Smhand-XLIZY-RJ documented in this encounter [facility] 12-13-2024 Note HNO ID: [id number] Author: MATHEW COBIAN MD Service: ? Author [...] Past Histories independently gathered by the clinical unit support representative and the remaining scribed note accurately describes [...] 13, 2024 11:42 AM. Laura Whaley MA [facility] 11-05-2024 Discharge summary [facility] 11-05-2024 Discharge summary Note Date/Time November 05, 2024 8:24pm [facility] Medical Records Department [address] [place] [address] Emergency Department Summary 11/05/24 MR#: [id number] Acct: [id number] Name: GOOD DE LUNA Rep #:[id number] : 1965 59 From: Salvatore Watkins MD PCP: Dr. Mathew Cobian MD Status:NM E ER Location: ED HPI History of [...] 6 months ago, and everything appeared normal. [facility] Medical History Alcohol abuse Anxiety History [...] DAILY Primary Care Provider: Mathew Cobian Referrals: Mega Ferreira MD [Med Staff - Active Staff] - 3-5 Days if not improving Mathew Cobian MD [Primary Care Provider] - Activity Restrictions/Additional Instructions: Antibiotics as directed. Return with fever, increased pain or swelling of hard palate, new or worsening symptoms. Follow-up with ENT or a dentist in the next 3 to 5 days if not improving. Print Language: Anguillan Disposition Disposition: Home, Self Care What to do if you have Problems For any increased pain, shortness of breath, bleeding, nausea or vomiting, chestpain, or any unexpected problems, contact your Primary Care Provider. Call [facility] ([phone]) or report to the closest Emergency Room. Call 911 if necessary. 11/05/242023 <Electronically signed by Salvatore Watkins MD> Cosigner Signature (if applicable): CC: Dr. Mathew Cobian MD ~ Signed [facility] Work Phone: 1(789) 854-711404-15-2025 Hospital Discharge instructions Additional Instructions Antibiotics as directed. Return with fever, increased pain or swelling of hard palate, new or worsening symptoms. Follow-up with ENT or a dentist in the next 3 to 5 days if not improving.[facility] Work Phone: 1(219) 806-593304-11-2025 Telephone encounter Note* Telephone Encounter - Juju Alcala MA - 11/01/2024 8:20 AM EDT Left message to call office to advise patient of below. Juju Alcala MA [facility]04-11-2025 Miscellaneous Notes* Telephone Encounter - Juju [...] Good Fu 6 months [facility] Telephone encounter Note * Telephone Encounter - Renard Farias MA - 10/31/2024 12:36 PM EDT Left message on phone to return call to office. Renard Farias MA Per : Raphael Calderon Jr., MD Mri prostate shows no lesions Good Fu 6 months [facility]04-07-2025 History of Present illness Narrative* Yanet [...] PATIENT PRESENTS WITH AN IMPLANTABLE OR ATTACHED BENCH MACHINE OPERATOR: No ALLERGIES: Reviewed and unchanged CONTRAST ALLERGY: NO. EXAM: MRI - CONTRAST TYPE: GROUP II PERIPHERAL IV DATA: Inpatient - refer to LDA documentation RADIOLOGY DEPARTMENT: MR; Exam(s) Completed: Body: Prostate SIGNATURE: RT Amanda(R) PATIENT NAME: Good De Luna DATE: October 28, 2024 TIME: 11:05 AM [facility]25 NoteHNO ID: [id number] Author: YANET TONG RT(R) Service: Radiology Author Type: Technologist Type: Progress [...] PATIENT PRESENTS WITH AN IMPLANTABLE OR ATTACHED BENCH MACHINE OPERATOR: No ALLERGIES: Reviewed and unchanged CONTRAST ALLERGY: NO. EXAM: MRI - CONTRAST TYPE: GROUP II PERIPHERAL IV DATA: Inpatient - refer to LDA documentation RADIOLOGY DEPARTMENT: MR; Exam(s) Completed: Body: Prostate SIGNATURE: RT Amanad(Maria Del Rosario) PATIENT NAME: Good De Luna DATE: October 28, 2024 TIME: 11:05 [facility]02-18-2025 Telephone encounter Note* Telephone Encounter - Bibi Arnett - 09/10/2024 10:57 AM EST Nurse Mcgovern spoke to pt and he is scheduled for an MRI and will make a new follow up. Pt is in agreement with this. [facility]02-18-2025 Miscellaneous Notes* Telephone Encounter - Bibi Arnett - 09/10/2024 10:57 AM EST Nurse Froilan spoke to pt and he is scheduled for an MRI and will make a new follow up. Pt is in agreement with this. * Telephone Encounter - Bibi Arnett - 09/10/2024 9:41 AM EST Pt can't make his 11:10 appt today due to loss of transportation, his aide is his daughter and her children are sick. Pt is asking if there is any way he can have a virtual visit due to his immobility and dependence on transport. Thank you. [facility] Telephone encounter Note * Telephone Encounter - Bibi Arnett - 09/10/2024 9:41 AM EST Pt can't make his 11:10 appt today due to loss of transportation, his aide is his daughter and her children are sick. Pt is asking if there is any way he can have a virtual visit due to his immobility and dependence on transport. Thank you. [facility]02-03-2025 NoteHNO ID: [id number] Author: TAMMIE WALTERS PA-C Service: ? Author Type: Physician Medical Billing Representative Type: Progress Notes Filed: 08/26/2024 14:11 Note Text: Tammie Walters PA-C Department of Orthopaedics Orthopaedics [address] [facility] [address] Dept: [phone] Dept August 26, 2024 CHIEF COMPLAINT: Established Patient and Follow Up of the Right Ankle. ASSESSMENT: S82.854Q Other closed fracture of proximal end of [...] allergies. This note was partially generated using [employer] voice recognition system, and there may be some incorrect words, spellings, and punctuation that were not noted in checking the note before saving. [facility] History of Present illness Narrative* Tammie Walters PA-C - 08/26/2024 2:08 PM EST Tammie Walters PA-C Department of Orthopaedics Orthopaedics [address] [facility] [address] Dept: [phone] Dept August 26, 2024 CHIEF COMPLAINT: Established Patient and Follow Up of the Right Ankle. ASSESSMENT: S82.329U Other closed fracture of proximal end of [...] allergies. This note was partially generated using [employer] voice recognition system, and there may be some incorrect words, spellings, and punctuation that were not noted in checking the note before saving. Tammie Walters PA-C Keisha Joyce MA - 08/26/2024 11:03 AM EST AMB ROOMING INTAKE FLOWSHEET DATA Pain Pain Level: 4 Pain Location: Leg-Right Description: Aching Duration Amount of Time: (ongoing) Frequency: Continuous Intervention/Comfort measure: Other: See comment (none) Patient here today for 5 weeks 2 days post fracture right fibula. New x-ray today. [facility]25 NoteHNO ID: [id number] Author: KEISHA RUGGIERO MA Service: ? Author Type: Food Service Supervisor Type: Progress Notes Filed: 08/26/2024 14:11 Note Text: AMB ROOMING INTAKE FLOWSHEET DATA Pain Pain Level: 4 Pain Location: Leg-Right Description: Aching Duration Amount of Time: (ongoing) Frequency: Continuous Intervention/Comfort measure: Other: See comment (none) Patient here today for 5 weeks 2 days post fracture right fibula. [facility] x[facility] today.[facility]02-03-[facility] History of Present illness Narrative * [...] PATIENT PRESENTS WITH AN IMPLANTABLE OR ATTACHED BENCH MACHINE OPERATOR: No RADIOLOGY DEPARTMENT: General X-ray: Exam(s) Completed: Lower Extremity X- Ray(s): Tibia Fibula, Right PERIPHERAL IV DATA: Not applicable SIGNED BY: Artie Oconnor August 26, 2024 10:41 AM documented in this encounterCommunity [facility] Hospital02-03-2025 NoteHNO ID: [id number] Author: SANTINO BARCLAY Tech Service: ? Author [...] PATIENT PRESENTS WITH AN IMPLANTABLE OR ATTACHED BENCH MACHINE OPERATOR: No RADIOLOGY DEPARTMENT: General X-ray: Exam(s) Completed: Lower Extremity X-Ray(s): Tibia Fibula, Right PERIPHERAL IV DATA: Not applicable SIGNED BY: Artie Oconnor August 26, 2024 10:41 [facility]01-14-2025 Telephone encounter Note* Telephone Encounter - Rola Riojas LPN - 08/06/2024 2:25 PM EST Patient notified. [facility]01-14[facility]2025 Miscellaneous Notes* Telephone Encounter - Rola [...] 06, 2024 2:14 PM documented in this encounterCommunity Memorial Hospital01-14-2025 Telephone encounter Note * Telephone Encounter - Brian Ahmadi APRN.CNP - 08/06/2024 2:19 PM EST Please let the patient know that I have sent. The following approved medication requests have been transmitted electronically. Requested Prescriptions Pending Prescriptions Disp Refills citalopram (CELEXA) 40 mg tablet 90 tablet 3 Sig: Take 1 tablet by mouth once daily. Brian Ahmadi APRN.PATTIE [facility]01-14-2025 Telephone encounter Note* Telephone Encounter - [...] Lo RN August 06, 2024 2:14 [facility]01-[facility]25 NoteHNO ID: [id number] Author: TAMMIE WALTERS PA-C Service: ? Author Type: Physician Medical Billing Representative Type: Progress Notes Filed: 08/02/2024 08:23 Note Text: Tammie Walters PA-C Department of Orthopaedics Orthopaedics [address] [address] Dept: [phone] Dept July 29, 2024 CHIEF COMPLAINT: New [...] mechanism of injury. He was seen at [facility] a few days after the injury, he [...] of the neck of the right fibula Gi Asst: MARTIN Transcribe Date/Time: Aug 01 2024 4:07P [...] Psych (no depression, anxi (more content not included)...[facility]01[facility] History of Present illness Narrative* Tammie Walters PA-C - 07/29/2024 4:44 PM EST Tammie Walters PA-C Department of Orthopaedics Orthopaedics [address] [address] Dept: [phone] Dept July 29, 2024 CHIEF COMPLAINT: New [...] mechanism of injury. He was seen at [facility] a few days after the injury, he [...] of the neck of the right fibula Gi Asst: MARTIN Transcribe Date/Time: Aug 01 2024 4:07P [...] anxiety) This note was partially generated using [employer] voice recognition system, and there may be some incorrect words, spellings, and punctuation that were not noted in checking the note before saving. Tammie Walters PA-C * Keisha Ruggiero MA - 07/29/2024 3:35 PM EST AMB ROOMING INTAKE FLOWSHEET DATA Risk Screening Do you have concerns about personal safety or safety in the home?: No Pain Pain Level: 5 Pain Location: (right lower leg) Description: Aching, Sharp Duration Amount of Time: 1 Duration Units: Weeks Frequency: Continuous Intervention/Comfort measure: Other: See comment (none) documented in this encounterCommunity [facility] Hospital01-06-2025 History of Present illness Narrative* Chuyita Valdovinos RT(Maria Del Rosario) - 07/29/2024 4:10 PM EST Radiology Service [...] PATIENT PRESENTS WITH AN IMPLANTABLE OR ATTACHED BENCH MACHINE OPERATOR: No RADIOLOGY DEPARTMENT: General X-ray: Exam(s) Completed: Lower Extremity X- Ray(s): Tibia Fibula, Right PERIPHERAL IV DATA: Not applicable SIGNED BY: NICKY Ma) July 29, 2024 7:34 PM documented in this encounterCommunity Memorial Hospital01-06-2025 NoteHNO ID: [id number] Author: CHUYITA VALDOVINOS RT(R) Service: ? Author Type: Technologist Type: [...] PATIENT PRESENTS WITH AN IMPLANTABLE OR ATTACHED BENCH MACHINE OPERATOR: No RADIOLOGY DEPARTMENT: General X-ray: Exam(s) Completed: Lower Extremity X-Ray(s): Tibia Fibula, Right PERIPHERAL IV DATA: Not applicable SIGNED BY: Chuyita Valdovinos RT(R) July 29, 2024 7:34 [facility]01-06-2025 NoteHNO ID: [id number] Author: KEISHA RUGGIERO MA Service: ? Author Type: Food Service Supervisor Type: Progress Notes Filed: 08/02/2024 08:23 Note Text: AMB ROOMING INTAKE FLOWSHEET DATA Risk Screening Do you have concerns about personal safety or safety in the home?: No Pain Pain Level: 5 Pain Location: (right lower leg) Description: Aching, Sharp Duration Amount of Time: 1 Duration Units: Weeks Frequency: Continuous Intervention/Comfort measure: Other: See comment (none)[facility]01-06[facility]2025 NotePatient Outreach (PULMMN) [place] ([id number]) 1965 [place] Date Time Provider Department 07/29/24 EMMA DUPREE During your visit today, we recorded the following information about you: Allergies As of Date: 07/29/2024 (No Known Allergies) Date Reviewed: 07/29/2024 Reviewed by: Keisha Ruggiero MA - Fully Assessed Visit Diagnosis:Tobacco abuse [Z72.0] Order(s):CONSULT LUNG [facility]ER SCREENING [facility]INIC [7251340] Order #: [id number]: 1 FUTURE Prescriptions as of 08/01/2024 - [...] Rectal bleeding [K62.5] 05/12/2024 Encounter Status:Closed by EDGAR, PRODUSER on 08/01/24[facility] 07[facility] History of Present illness Narrative* Mathew Cobian MD - 07/25/2024 10:40 AM EST Chief Complaint Patient presents with: Hospital Follow Up HPI Good De Luna is a 59 year old male who presents here today for ER Follow Up.. Pt was in [facility] ER on 07/22/24 for closed fx of [...] fax number to fax letter. Fax number [phone], ATTN: Karie. Case #: [id number]. Notes some sinus drainage and cough, wondering [...] leg. He states that he went to [facility] had an x-ray obtained and was [...] Past Histories independently gathered by the clinical unit support representative and the remaining scribed note accurately describes [...] AM. Mick Youngblood MA documented in this encounterCommunity Memorial Hospital01-02-2025 NoteHNO ID: [id number] Author: MATHEW COBIAN MD Service: ? Author Type: Physician Type: Progress Notes Filed: 07/25/2024 11:12 Note Text: Chief Complaint Patient presents with: Hospital Follow Up HPI Good De Luna is a 59 year old male who presents here today for ER Follow Up.. Pt was in [facility] ER on 07/22/24 for closed fx of [...] fax number to fax letter. Fax number [phone], ATTN: Karie. Case #: [id number]. Notes some sinus drainage and cough, wondering [...] leg. He states that he went to [facility] had an x-ray obtained and was [...] 50 PLUS M (more content not included)... [facility] Telephone encounter Note* Telephone Encounter - Keisha Ruggiero MA - 07/23/2024 1:34 PM EST I called and spoke with the patient. Advised no providers in the [place] office until 07/29/2024. Patient scheduled appointment. [facility] Miscellaneous Notes* Telephone Encounter - Keisha Ruggiero MA - 07/23/2024 1:34 PM EST I called and spoke with the patient. Advised no providers in the [place] office until 07/29/2024. Patient scheduled appointment. * Telephone Encounter - Sofia Chung MA - 07/23/2024 12:47 PM EST Patient transferred. Patient states he was told by [facility] ED he has a fracture and needs to be seen byorthopedics by Monday. Patient unable to stay on hold for scheduling. Please advise Sofia Chung MA * Telephone Encounter - Ashlyn London RN - 07/23/2024 12:34 PM EST Pt scheduled [facility] ER f/u. 07-22-24. Reports has closed fx of fibula proximal right, and instructed to f/u with pcp and also ortho by the end of the week. Transferred to Ortho per pt request. documented in this encounterCommunity Memorial Hospital12-31-2024 Telephone encounter Note * Telephone Encounter - Ashlyn London RN - 07/23/2024 12:52 PM EST Pt phoned in for another reason and given provider's message below with verbalized understanding. Pt agreeable. [facility] Miscellaneous Notes* Telephone Encounter - Ashlyn London RN - 07/23/2024 12:52 PM EST Pt phoned in for another reason and given provider's message below with verbalized understanding. Pt agreeable. * Telephone Encounter - Mick Youngblood MA - 07/22/2024 12:56 PM EST [employer] message sent to pt asking for a [...] in 6 weeks. Labs placed Brian Ahmadi APRN.PATTIE documented in this encounterCommunity Memorial Hospital12-31-2024 Telephone encounter Note * Telephone Encounter - Sofia Chung MA - 07/23/2024 12:47 PM EST Patient transferred. Patient states he was told by [facility] ED he has a fracture and needs to be seen byorthopedics by Monday. Patient unable to stay on hold for scheduling. Please advise Sofia Chung MA [facility] Telephone encounter Note* Telephone Encounter - Ashlyn London RN - 07/23/2024 12:34 PM EST Pt scheduled [facility] ER f/u. 07-22-24. Reports has closed fx of fibula proximal right, and instructed to f/u with pcp and also ortho by the end of the week. Transferred to Ortho per pt request. [facility]12-[facility] Telephone encounter Note* Telephone Encounter - Mick Youngblood MA - 07/22/2024 12:56 PM EST [employer] message sent to pt asking for a return call to office regarding his recent lab results. Pt notified office has attempted to reach him with VM left. Mick Youngblood MA [facility] Hospital Discharge instructions Patient Education [...] thin towel or cloth. You may use ygmt-wpd-grxvzlv pain medicine (NSAIDS or nonsteroidal anti- inflammatory [...] skin is discolored (looks blue, purple, or kunz), has blisters, or is irritated You re-injure your ankle 5183-1340 [employer]. [address] [place] [address], [place] [address]. All rights reserved. This information is not [...] above the level of your heart. Medicines Ghei-xmm-vwitpip medicines such as acetaminophen or ibuprofen can [...] on an injured limb if it hurts. 6140-3184 [employer]. [address] [place] [address]. All rights reserved. This information is not intended as a substitute for professional medical care. Always follow yourhealthcare professional's instructions. Follow Up Care 07/20/2024 14:16:50 With:KARAN SRINIVASAN DO, Orthopedic Address: [facility] [facility], [address] [place] [address] [phone] When:3-5 days With:Go to emergency room if symptoms worsen Address:Unknown When:2-4 days With:MATHEW COBIAN MD Address: [address] [place] [address]- When:2-4 days [facility] 12-28-2024 Note Discharge Instructions Thank you for allowing [facility] to assist you with your healthcare needs. [...] Following Appointments Follow Up with KARAN SRINIVASAN DO, Orthopedic When:Within 3-5 days Where:[address], [address] [place] [address]- [phone] Follow Up with Go to emergency room if symptoms worsen When:Within 2-4 days Follow Up with MATHEW COBIAN MD When:Within 2-4 days Where:[address] [place] [address]- Allergies No Known Medication Allergies Medications Please [...] thin towel or cloth. You may use kmdk-kzm-uuyzchj pain medicine (NSAIDS or nonsteroidal anti- inflammatory [...] skin is discolored (looks blue, purple, or kunz), has blisters, or is irritated You re-injure your ankle [phone] [employer]. [address] [place], [place] [address]. All rights reserved. This information is not [...] above the level of your heart. Medicines Jccd-yoh-ssljvga medicines such as acetaminophen or ibuprofen can [...] on an injured limb if it hurts. 6252-0748 [employer]. [address] [place] [address], [place] [address]. All rights reserved. This information is not intended as a substitute for professional medical care. Always follow yourhealthcare professional's instructions. Additional Information VACCINATE! IT SAVES LIVES! Members of the community who have not yet received the COVID-19 vaccine and would like to receive it can visit one of [facility] vaccine clinics. There are many vaccine clinic locations within the [facility]. For locations and available times, please visit www.gettheshot.coronavirus.[place].gov/. It is important to note that some COVID mobile vaccine clinics are held outdoors and may be canceled in rainy or stormy conditions. To learn more about pediatric vaccinations (ages 5-11), we invite you to visit the [facility] webpage. https://www.[facility].org/pages/0976-Wzypl-Kluzzllxgws-Cqreaarclg-Pllww-Qii stions.htmlTo learn more about the COVID-19 vaccine, we invite you to visit the CDC website for a list of frequently asked questions. https://www.cdc.gov/coronavirus/2019-ncov/vaccines/faq.html [facility] Patient Portal Access Instructions: Stay connected with your healthcare team and access your personal medical information anytime with the [facility] Patient Portal. If you would like a full copy of your medical records please contact the [facility] Medical Records Department Monday through Monday between 8a.m. and 4:30p.m. Please follow the directions below to access the portal: 1.Access the email account you provided upon registration to the hospital.2.Look for an invitation email from [facility].3.Open the email and access the invitation link: Accept Invitation to [facility]4.Fill in the required casillas to create your account. Sign into www.[employer] with your username and password that you [...] you will allow to register on the [employer] Patient Portal for access to your information. You can also access the [employer] Patient Portal on the [employer]. Simply click on Health Records under [employer] and then click on the [employer] logo. HOW TO SAFELY DISPOSE OF PRESCRIPTION [...] Call your local pharmacy or go to http://[employer]7C1Vo3r to find one close to you.3.Make use of household items: Use cat litter or old coffee grounds to dispose medications if other options arenot available. Mix your drugs with these household products, seal them in an airtight container andthrow it into the garbage. Call [facility]: [phone] to be sure your drugs can be [...] been reviewed and explained to me and I,CALIXTO GOOD Whatley understand my current condition and have read and understand these discharge instructions. I have received a written copy of the plan/instructions. If I have questions, I am aware that I should contact my doctor. Patient/Management Advisor Signature: Date/Time: Relationship to Patient: Witness Name/Signature: Date/Time: [facility]12-28-2024 Note* Exam Date Time Procedure Performing Provider Status 07/20/24 3:35 PM XR Tibia/Fibula 2 Views Right LARRY KASPER MD; Auth (Verified) [id number] ORIGINAL EXAMINATION: 6 XRAY VIEWS OF THE [...] Mild soft tissue swelling. Interpreted by: Larry Robins MD Preliminary Report By: Larry Robins MD Electronically signed By Larry Robins MD Dictated Date: 07/20/2024 3:54:33 PM Prelim Date: 07/20/2024 3:56:28 PM Sign Date: 07/20/2024 3:56:28 PM Ordering Provider: [facility]12-28-2024 Note* Exam Date Time Procedure Performing Provider Status 07/20/24 3:35 PM XR Ankle and Foot 6 Views Right LARRY ROBINS MD; Auth (Verified) [id number] ORIGINAL EXAMINATION: 6 XRAY VIEWS OF THE [...] Mild soft tissue swelling. Interpreted by: Larry Robins MD Preliminary Report By: Larry Robins MD Electronically signed By Larry Robins MD Dictated Date: 07/20/2024 3:54:33 PM Prelim Date: 07/20/2024 3:56:28 PM Sign Date: 07/20/2024 3:56:28 PM Ordering Provider: [facility]12-26-2024 Telephone encounter Note* Telephone Encounter - Levi Paniagua LPN - 07/18/2024 12:29 PM EST Left message for pt to contact office. Levi Paniagua LPN [facility]12[facility] Telephone encounter Note* Telephone Encounter - Brian Ahmadi 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 - 07/18/2024 9:04 AM EST Please let [...] 6 weeks. Labs placed Brian Ahmadi APRN.CNP [facility]12-20-20[facility] History of Present illness Narrative* Brian [...] labs, EEG to finish workup. Brian Ahmadi APRN.PATTIE RTO in 6 months, sooner if needed. This note was partly generated using [employer] voice recognition dictation and may contain some misspelled or inaccurate words missed on review. documented in this encounterCommunity Memorial Hospital12-20-2024 NoteHNO ID: [id number] Author: BRIAN AHMADI APRN.CNP Service: ? Author [...] needed. This note was partly generated using [employer] voice recognition dictation and may contain some misspelled or inaccurate words missed on review.[facility]12-20-20[facility] Instructions* Patient Instructions* Brian Ahmadi APRN.CNP - 07/12/2024 10:56 AM EST Ativan refill sent Get labs to assess TSH Complete labs and EEG that was ordered by neurology Schedule with neurosurgery See us back in 6 months. Brian Ahmadi APRN.CNP documented in this encounterCommunity Memorial Hospital12-05-2024 Telephone encounter Note * Telephone Encounter - Gypsy Ayala APRN.CNP - 06/27/2024 8:11 AM EST Form has been completed and ready for order picker. Patient has been notified. Gypsy Ayala APRN.PATTIE [facility] Work Phone: [phone]) 431-927412-05-2024 Miscellaneous Notes* Telephone Encounter - Gypsy Ayala APRN.CNP - 06/27/2024 8:11 AM EST Form has been completed and ready for order picker. Patient has been notified. Gypsy Ayala APRN.CNP * Telephone Encounter - Meena Garcia [...] moving in a week. Patient wants to order picker form when completed please. * Telephone [...] AM EST Pt dropped off form from [facility] stating that pt is requesting either 1) change in rules, policies, practices or services (due to a disability) to afford him/her full enjoyment of the premises or 2) a physical change (due to disability) to afford him/her full enjoyment of premises. Laura Whaley MA documented in this encounterCommunity Memorial Hospital11-26-2024 Telephone encounter Note * Telephone Encounter - Meena Garcia LPN - 06/18/2024 4:16 PM EST Patient is calling re: status of form. Needing FRANCIA or will have to pay extra $300 that he does nothave. Meena Garcia LPN [facility]11-22-2024 Telephone encounter Note* Telephone Encounter - Saniya Santoro LPN - 06/14/2024 2:19 PM EST Patient calling to see if form is completed, he is moving in a week. Patient wants to order picker form when completed please. [facility]11-21-2024 Telephone encounter Note* Telephone Encounter - Laura Whaley MA - 06/13/2024 12:00 PM EST See phone note 06/10/24. Laura Whaley MA [facility]11-21-2024 Telephone encounter Note* Telephone Encounter - Laura Whaley MA - 06/13/2024 12:00 PM EST 06/06/24 he dropped a form off in the main lobby for pcp to complete. The form was to allow pt to have an emotional support cat without paying a pet fee. Pt asking if this is complete & has it been sent off yet? Scarlet Carvajal LPN [facility]11-21-2024 Miscellaneous Notes* Telephone Encounter - Laura [...] yet? Scarlet Carvajal LPN documented in this encounterCommunity Memorial Hospital11-20-2024 Telephone encounter Note * Telephone Encounter [...] been sent off yet? Scarlet Carvajal LPN [facility]11-18-2024 Telephone encounter Note* Telephone Encounter - Laura Whaley MA - 06/10/2024 10:08 AM EST Pt dropped off form from [facility] stating that pt is requesting either 1) change in rules, policies, practices or services (due to a disability) to afford him/her full enjoyment of the premises or 2) a physical change (due to disability) to afford him/her full enjoyment of premises. Laura Whaley MA [facility]11-15-2024 Telephone encounter Note* Telephone Encounter - EspartoRylie - 06/07/2024 10:33 AM EST Order for Consult to Neurosurgery needs to be edited. Diagnoses is only pulling general neurology providers instead of cerebrovascular providers. Currently unable to schedule. Please contact patient when completed. Thank you, Rylie Wing [facility]11-15-2024 Miscellaneous Notes* Telephone Encounter - Rylie Wing - 06/07/2024 10:33 AM EST Order for Consult to Neurosurgery needs to be edited. Diagnoses is only pulling general neurology providers instead of cerebrovascular providers. Currently unable to schedule. Please contact patient when completed. Thank you, Rylie Wing documented in this encounterCommunity Memorial Hospital11-15-2024 Telephone encounter Note * Telephone Encounter - Calixto Chandler RN - 06/07/2024 10:22 AM EST Caregiver calling with physician referral: Patient referred to Neurosurgery Department. Caregiver reports patient denies any new or worsening symptoms of which a provider is not aware:Yes Caregiver Rylie transferred to [facility] center for ordered neurosurgery consult. [facility]11-15-2024 Miscellaneous Notes* Telephone Encounter - Calixto Chandler RN - 06/07/2024 10:22 AM EST Caregiver calling with physician referral: Patient referred to Neurosurgery Department. Caregiver reports patient denies any new or worsening symptoms of which a provider is not aware:Yes Caregiver Rylie transferred to [facility] in [facility] for ordered neurosurgery consult. documented in this encounterCommunity Memorial Hospital11-11-2024 Telephone encounter Note * Telephone Encounter - Devi Cisse MD - 06/03/2024 3:27 PM EST Please make sure he comes for follow up visit ,he may need help scheduling tests and orders First visit is virtual visit [facility] Work Phone: 1(889) 984-889411-11-2024 Miscellaneous Notes* Telephone Encounter - Devi Cisse [...] logging in for apt. documented in this encounterCommunity Memorial Hospital11-11-2024 NoteHNO ID: [id number] Author: DEVI CISSE MD Service: ? Author Type: Physician Type: Progress Notes Filed: 06/09/2024 10:26 Note Text: Neurological [place] June 03, 2024 New Patient VIRTUAL VISIT PROGRESS NOTE This is a virtual visit using Unii Zoom Video Visit. It required patient-provider interaction for the medical decision making as documented below. I have communicated my name and active licensure. The patient's identity and physical location were verified at the time of this visit. Either the patient or their legal digital sales representative has been informed of the risks [...] or syncopal episodes He was admitted in [facility] and had an MRI Brain and found [...] ASSESSMENT: (R41.0) Confusion (primary encounter diagnosis) PLAN: [facility] on 06/03/24 VITAMIN B12 THYROID STIMULATING HORMONE FOLATE, SERUM METHYLMALONIC ACID MAGNESIUM CONSULT TO NEUROSURGERY EPIL EEG ROUTINE *Canceled* EPIL EEG ROUTINE There are no Patient Instructions on file for this visit. I spent a total of 55 minutes on the date of the service which included preparing to see the patient, fyfw-pe-yxzm patient care, completing clinical documentation, obtaining and/or [...] mcg tablet Ta (more content not included)... [facility] History of Present illness Narrative* Devi Cisse MD - 06/03/2024 3:04 PM EST Images from the original note were not included. Neu[facility] [place] June 03, 2024 New Patient VIRTUAL VISIT PROGRESS NOTE This is a virtual visit using Unii Zoom Video Visit. It required patient- provider interaction for the medical decision making as documented below. I have communicated my name and active licensure. The patient's identity and physical location wereverified at the time of this visit. Either the patient or their legal digital sales representative has been informed of the risks [...] or syncopal episodes He was admitted in [facility] and had an MRI Brain and found [...] ASSESSMENT: (R41.0) Confusion (primary encounter diagnosis) PLAN: [facility] on 06/03/24 VITAMIN B12 THYROID STIMULATING HORMONE FOLATE, SERUM METHYLMALONIC ACID MAGNESIUM CONSULT TO NEUROSURGERY EPIL EEG ROUTINE *Canceled* EPIL EEG ROUTINE There are no Patient Instructions on file for this visit. I spent a total of 55 minutes on the date of the service which included preparing to see the patient, xiiz-ct-gleu patient care, completing clinical documentation, obtaining and/or [...] of ... COLONOSCOPY DIAGNOSTIC Result Date: 05/13/2024 [facility] Gastrointestinal Endoscopy Patient Name: Good De Luna Procedure Date: 05/13/2024 8:00 AM Date of : 1965 Admit Type: Outpatient Age: 58 Room: [facility] Gender: Male Note Status: Finalized Attending MD: Gilson Bar , , [id number] Procedure: Colonoscopy Indications: Evaluation of unexplained GI [...] physician, the nurse, the anesthesiologist and the element winding machine tender in the pre-procedure area in the endoscopy [...] clip was successfully placed (MR safe). Clip unload associate: [employer]. There was no bleeding at the end [...] cold biopsy forceps. Resected and retrieved. Clip unload associate: [employer]. Clip(MR safe) was placed. - Eight 1 [...] present medications. Procedure Code(s): --- Professional --- 55745, Colonoscopy, flexible; with removal of tumor(s), polyp(s), or other lesion(s) by snare technique 28588, 59, Colonoscopy, flexible; with biopsy, single or multiple 90832, Colonoscopy, flexible; with directed submucosal injection(s), any substance Diagnosis Code(s): --- Professional --- K64.9, Unspecified hemorrhoids D12.2, Benign neoplasm of ascending colon D12.5, Benign neoplasm of sigmoid colon D12.8, Benign neoplasm of rectum K92.1, Melena (includes Hematochezia) K57.30, Diverticulosis of large intestine without perforation or abscess without bleeding CPT copyright 2021 [employer]. All rights reserved. The codes documented in this report are preliminary and upon molder shoulder pad review may be revisedto meet current compliance requirements. Attending Participation: I personally performed the entireprocedure. Scope In: 8:25:49 AM Scope Out: 9:28:51 AM DO Gilson ALLEN, 05/13/2024 9:50:25 AM This report has been [...] 0 min Stress: Stress Concern Present (04/30/2024) [employer] [place] [employer] - Occupational Stress Questionnaire Feeling of Stress : To some extent Social Connections: Socially Isolated (04/30/2024) Social Connection and Isolation Panel [NHANES] Frequency of Communication with Friends and Family: More than three times a week Frequency of Social Gatherings with Friends and Family: More than three times a week Attends Christian Services: Never Active Member of Clubs or [...] Year: No Utilities: Not At Risk (05/13/2024) [facility] Utilities Threatened with loss of utilities: No Area Deprivation Index: High Risk (08/15/2023) Area Deprivation Index National Score (1-100), lower number is lower risk: 75 State Score (1-10), lower number is lower risk: 6 Data from: https://www.neighborhoodatlas.medicine.[facility].edu/. Last address used for calculation: [address] Diagnosis: (R41.0) Confusion (primary encounter diagnosis) IMP/PLAN: Good De Luna is 58 year old male, here today for episodes of confusion . MRI Brain showed venous anomaly Will do EEG r/o seizure [facility] on 06/03/24 VITAMIN B12 THYROID STIMULATING HORMONE FOLATE, SERUM METHYLMALONIC ACID MAGNESIUM CONSULT TO NEUROSURGERY EPIL EEG ROUTINE *Canceled* EPIL EEG ROUTINE Devi Cisse MD [facility] [place] Department of Neurology Total time in minutes spent with patient, reviewing records, labs, imaging, formulating plan, and documentin minutes with more than 50% of the time spent in patient education/counselling/coordinating care with the patient and /or family. documented in this encounterCommunity [facility] Hospital11-11-2024 Telephone encounter Note * Telephone Encounter - Sofia Munoz MA - 06/03/2024 2:43 PM EST Talk to patient he already answered precheck in questions, I told him if I don't see he logged in Iwill give him a call to help [facility]11-11-2024 Telephone encounter Note* Telephone Encounter - Sofia Munoz MA - 06/03/2024 2:08 PM EST Left VM letting patient know he has an virtual apt. With Dr. Cisse at 3 pm and that I will try calling closer to 3 pm to see if help is needed with logging in for apt. [facility]10-30-2024 NoteHNO ID: [id number] Author: JENNIFER GALICIA 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 Service: ? Author Type: Nurse Practitioner Type: Progress Notes Filed: 05/22/2024 14:48 Note Text: FOLLOW UP VISIT - ENDOSCOPY Good De Luna 1965 [id number] REFERRING PHYSICIAN: No referring provider defined for [...] cold biopsy forceps. Resected and retrieved. Clip unload associate: [facility]. Clip (MR safe) was placed. - Eight [...] or as needed for worsening/no improvement. Jennifer Galicia APRN.[facility]NPDo[facility]10-30-2024 History of Present illness Narrative* Jennifer Galicia 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 - 05/22/2024 1:33 PM EDT FOLLOW UP VISIT - ENDOSCOPY Good De Luna 1965 [id number] REFERRING PHYSICIAN: No referring provider defined for [...] cold biopsy forceps. Resected and retrieved. Clip unload associate: [facility]. Clip (MR safe) was placed. - Eight [...] or as needed for worsening/no improvement. Jennifer Galicia APRN.CNP documented in this encounterCommunity [facility] Hospital10-25-2024 Instructions* Patient Instructions* Prema Turner APRN.CNP - 05/17/2024 12:58 PM EDT You have [...] with your family doctor. documented in this encounterCommunity Memorial Hospital10-25-2024 NoteHNO ID: [id number] Author: PREMA TURNER APRN.PATTIE Service: ? Author Type: Nurse Practitioner Type: Progress Notes Filed: 05/17/2024 13:10 Note Text: This note was created using [employer]. Subjective Good De Luna is a 58 [...] increased swelling, redness, or fever. Prema Turner APRN.[facility]EDo[facility] Hospital10-25-2024 History of Present illness Narrative* Prema Turner APRN.PATTIE - 05/17/2024 12:51 PM EDT Images from the original note were not included. This note was created using [employer]im[employer]. Subjective Good De Luna is a 58 [...] increased swelling, redness, or fever. Prema Turner APRN.PATTIE documented in this encounterCommunity Memorial Hospital10-24-2024 Telephone encounter Note * Telephone Encounter - Laura Whaley MA - 05/16/2024 4:33 PM EDT Mailed. Laura Whaley MA [facility]10-24-2024 Miscellaneous Notes* Telephone Encounter - Laura [...] updated letter. Please send to patient, via [employer]. Address verified. documented in this encounterCommunity [facility] Hospital10-24-2024 Telephone encounter Note * Telephone Encounter - Mathew Cobian MD - 05/16/2024 4:24 PM EDT Letter done Mathew Cobian MD [facility]10-24-2024 Telephone encounter Note* Telephone Encounter - Ashlyn London RN - 05/16/2024 2:34 PM EDT Patient asking pcp to write an updated letter, stating he needs an emotional support animal. Reports he is moving and the place he's moving to needs an updated letter. Please send to patient, via [employer]. Address verified. [facility]10-[facility]-2024 NoteHNO ID: [id number] Author: BANN, SP, RN Service: ? Author Type: Registered Nurse [...] questions, needs or concerns. Patient discharged from [facility] Discharge date: 05/13/24 Admitted for: Rectal bleeding Readmission Risk: 6 Value-Based Contract: ACO Contact: Contact made with patient: Yes Hi, my name is Sp Dahl RN and I am calling from the [facility] on behalf of your Primary Care [...] like to speak with a social work sales team leader to help give you support for any [...] I will send your request to a rn staff who will contact and assist you with [...] outreach Care Management partners utilized: N/A Sp Dahl RN May 14, 2024 2:25 [facility]10-22-2024 History of Present illness Narrative* Sp Dahl RN - 05/14/2024 2:17 PM EDT Transition [...] questions, needs or concerns. Patient discharged from [facility] Discharge date: 05/13/24 Admitted for: Rectal bleeding Readmission Risk: 6 Value-Based Contract: ACO Contact: Contact made with patient: Yes Hi, my name is Sp Dahl RN and I am calling from the [facility] on behalf of your Primary Care [...] like to speak with a social work sales team leader to help give you support for any [...] I will send your request to a rn staff who will contact and assist you with [...] outreach Care Management partners utilized: N/A Sp Dahl RN May 14, 2024 2:25 PM documented in this encounterCommunity Memorial Hospital10-22-2024 NotePatient Outreach ([facility]) CALIXTOGOOD Chacorta ([id number]) 1965 M Date Time Provider Department 05/14/24 SP DAHL [facility] During your visit today, we recorded the following information about you: Sp Dahl RN 05/14/2024 2:26 PM Signed Transition Care [...] questions, needs or concerns. Patient discharged from [facility] Discharge date: 05/13/24 Admitted for: Rectal bleeding Readmission Risk: 6 Value-Based Contract: ACO Contact: Contact made with patient: Yes Hi, my name is Sp Dahl RN and I am calling from the [facility] on behalf of your Primary Care [...] like to speak with a social work sales team leader to help give you support for any [...] I will send your request to a rn staff who will contact and assist you with [...] outreach Care Management partners utilized: N/A Sp Dahl RN May 14, 2024 2:25 PM Allergies As of Date: 05/14/2024 (No Known Allergies) Date Reviewed: 05/13/2024 Reviewed by: Christina Parkinson RN - Fully Assessed Reason for Visit: Transition Of Care [4994] Cmt: TCM Initial Hospital Discharge [place] 05/13/24 Prescriptions as of 05/14/2024 - levothyroxine [...] As Of Date 04/24 (more content not included)...[facility] Nurse Note* Patricia Bai RN - 05/13/2024 10:49 AM EDT Other: 1020- made aware of Pt's HR. Orders received. 1040- Dr. Hutton iupdated on patient's HR. 1045- Pt c/o chest heaviness. Dr. Hutton at bedside. No new orders. Per Dr. Hutton patient ok to send to the floor. [facility]10-[facility] Nurse Note* Patricia Bai RN - 05/13/2024 10:49 AM EDT Other: 1020- made aware of Pt's HR. Orders received. 1040- Dr. Hutton iupdated on patient's HR. 1045- Pt c/o chest heaviness. Dr. Hutton at bedside. No new orders. Per Dr. Hutton patient ok to send to the floor. documented in this encounterCommunity Memorial Hospital10-21-2024 Attending History and physical note* Gilson [...] included. General Surgery Consult REASON FOR VISIT oGod De Luna is a 58 year old [...] Resolved Resolved By Diverticulitis 04/30/2024 Brian Ahmadi 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 No Recurrent major depressive disorder, remission status unspecified (HCC) 10/17/2023 Mathew Cobian MD No Prostate cancer (HCC) 10/17/2023 Mathew Cobian MD No Congenital diplegia (HCC) 05/27/2021 BebbRochelle, PT, DPT No Spasticity 05/27/2021 BeRochelle dubois, PT, DPT No Costochondritis 05/27/2021 BeRochelle dubois, PT, DPT No Localized osteoporosis ([place]) 05/27/2021 BeRochelle dubois, PT, DPT No Cerebral palsy (HCC) Mathew Cobian MD No Nicotine use disorder, F17.2 02/11/2019 Zabrina Cevallos DO No Back pain 02/10/2019 Zabrina Cevallos, DO No Chronic bilateral low back pain with right-sided sciatica 01/10/2018 Ray Giraldo PA-C No Spinal stenosis of lumbar region 12/12/2017 Brian Ahmadi 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 No Overview Signed 12/12/2017 7:47 AM by Brian Ahmadi (Equipment Operator [employer]) MRI 11/2017 [facility] Thoracic or lumbosacral neuritis or radiculitis, unspecified 04/25/2014 Chuyita Boyer, PT No Bilateral hip pain 04/17/2009 Xiomy Rodriguez (Pt)(Hist) No SI (sacroiliac) joint dysfunction 04/17/2009 Xiomy Rodriguez (Pt)(Hist) No Hypothyroidism 03/27/2009 Mathew Cobian MD [...] tab(s) (PROTONIX) 20 mg ORAL DAILY Angelika Martines MD [START ON 05/13/2024] citalopram 40 mg tab(s) (CeleXA) 40 mg ORAL DAILY Angelika Martines MD [START ON 05/13/2024] levothyroxine 150 mcg (SYNTHROID) 150 mcg ORAL DAILY Angelika Martines MD cholecalciferol 1,000 Units tab(s) (VITAMIN D3) 1,000 Units ORAL DAILY Angelika Martines MD multivitamin-ferrous fumarate-folic acid 1 tablet (CENTRUM) 1 tablet ORAL DAILY Angelika Martines MD CURRENT ALLERGIES ALLERGIES No Known Allergies [...] discussed with the Patient or Patient's Authorized Management Advisor. Asapplicable, any other physician, advance practice provider, medical student, or other health professional student that will be observing or involved in the sensitive examination for educational or training purposes was discussed with the Patient or Authorized Management Advisor. The Patient or Authorized Management Advisor has agreed to proceed with the sensitive [...] CC: Mathew Cobian MD CC: Brian Ahmadi [facility] Work Phone: [phone] History and physical note* Gilson Bar DO [...] Resolved Resolved By Diverticulitis 04/30/2024 Brian Ahmadi 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 No Recurrent major depressive disorder, remission status unspecified ([facility]) 10/17/2023 Mathew Cobian MD No Prostate cancer ([facility]) 10/17/2023 Mathew Cobian MD No Congenital diplegia (HCC) 05/27/2021 Bebb, Roc[place], PT, DPT No Spasticity 05/27/2021 Bebb, Rochelle, PT, DPT No Costochondritis 05/27/2021 Bebb, Rochelle, PT, DPT No Localized osteoporosis ([place]) 05/27/2021 BeRochelle dubois, PT, DPT No Cerebral palsy ([facility]) Mathew Cobian MD No Nicotine use disorder, F17.2 02/11/2019 Zabrina Cevallos, DO No Back pain 02/10/2019 Zabrina Cevallos, DO No Chronic bilateral low back pain with right-sided sciatica 01/10/2018 Ray Giraldo PA-C No Spinal stenosis of lumbar region 12/12/2017 Brian Ahmadi, MORTUARY BEAUTICIAN.PLUG MACHINE OPERATOR No Overview Signed 12/12/2017 7:47 AM by Brian Ahmadi (Equipment Operator [employer]) MRI 11/2017 [facility] Thoracic or lumbosacral neuritis or radiculitis, unspecified 04/25/2014 Chuyita Boyer, PT No Bilateral hip pain 04/17/2009 O Memo, Xiomy (Pt)(Hist) No SI (sacroiliac) joint dysfunction 04/17/2009 O Memo Xiomy (Pt)(Hist) No Hypothyroidism 03/27/2009 Mathew Cobian [...] tab(s) (PROTONIX) 20 mg ORAL DAILY Angelika Martines MD [START ON 05/13/2024] citalopram 40 mg tab(s) (CeleXA) 40 mg ORAL DAILY Angelika Martines MD [START ON 05/13/2024] levothyroxine 150 mcg (SYNTHROID) 150 mcg ORAL DAILY Angelika Martines MD cholecalciferol 1,000 Units tab(s) (VITAMIN D3) 1,000 Units ORAL DAILY Angelika Martines MD multivitamin-ferrous fumarate-folic acid 1 tablet (CENTRUM) 1 tablet ORAL DAILY Angelika Martines MD CURRENT ALLERGIES ALLERGIES No Known Allergies [...] discussed with the Patient or Patient's Authorized Management Advisor. Asapplicable, any other physician, advance practice provider, medical student, or other health professional student that will be observing or involved in the sensitive examination for educational or training purposes was discussed with the Patient or Authorized Management Advisor. The Patient or Authorized Management Advisor has agreed to proceed with the sensitive [...] to complete prep prior to scope. Gilson Bar, DATE: May 07, 2024 TIME: 5:51 PM CC: Mathew Cobian MD CC: Brian Ahmadi documented in this encounterCommunity Memorial Hospital10-20-2024 NoteHNO ID: [id number] Author: ANGELIKA MARTINES MD Service: General Surgery Author Type: Physician Type: Progress Notes Filed: 05/12/2024 16:57 Note Text: Direct admit by Dr. Bar for rectal bleedingTrihealth Bethesda Butler [id number] Instructions* Patient Instructions* Gilson Bar DO - [...] am on dialysis? A: Please consult your plating tank operator apprentice prior to scheduling to get instructions pertinent [...] rest of the day. documented in this encounterCommunity Memorial Hospital10-16-2024 History and physical note * Gilson [...] Resolved Resolved By Diverticulitis 04/30/2024 Brian Ahmadi 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 No Recurrent major depressive disorder, remission status unspecified ([facility]) 10/17/2023 Mathew Cobian MD No Prostate cancer ([facility]) 10/17/2023 Mathew Cobian MD No Congenital diplegia ([facility]) 05/27/2021 Rochelle Cornelius, PT, DPT No Spasticity 05/27/2021 Rochelle Cornelius, PT, DPT No Costochondritis 05/27/2021 Rochelle Cornelius, PT, DPT No Localized osteoporosis ([place]) 05/27/2021 Rochelle Cornelius, PT, DPT No Cerebral palsy (HCC) Mathew Cobian MD No Nicotine use disorder, F17.2 02/11/2019 Zabrina Cevallos, DO No Back pain 02/10/2019 Zabrina Cevallos, DO No Chronic bilateral low back pain with right-sided sciatica 01/10/2018 Ray Giraldo PA-C No Spinal stenosis of lumbar region 12/12/2017 Brian Ahmadi 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 No Overview Signed 12/12/2017 7:47 AM by Brian Ahmadi (Equipment Operator [employer]) MRI 11/2017 [facility] Thoracic or lumbosacral neuritis or radiculitis, unspecified [...] tab(s) (PROTONIX) 20 mg ORAL DAILY Angelika Martines MD [START ON 05/13/2024] citalopram 40 mg tab(s) (CeleXA) 40 mg ORAL DAILY Angelika Martines MD [START ON 05/13/2024] levothyroxine 150 mcg (SYNTHROID) 150 mcg ORAL DAILY Angelika Martines MD cholecalciferol 1,000 Units tab(s) (VITAMIN D3) 1,000 Units ORAL DAILY Angelika Martines MD multivitamin-ferrous fumarate-folic acid 1 tablet (CENTRUM) 1 tablet ORAL DAILY Angelika Martines MD CURRENT ALLERGIES ALLERGIES No Known Allergies [...] discussed with the Patient or Patient's Authorized Management Advisor. Asapplicable, any other physician, advance practice provider, medical student, or other health professional student that will be observing or involved in the sensitive examination for educational or training purposes was discussed with the Patient or Authorized Management Advisor. The Patient or Authorized Management Advisor has agreed to proceed with the sensitive [...] CC: Mathew Cobian MD CC: Brian Ahmadi [facility]10-[facility] History and physical note* Gilson Bar [...] Resolved Resolved By Diverticulitis 04/30/2024 Brian Ahmadi, MORTUARY BEAUTICIAN.PLUG MACHINE OPERATOR No Recurrent major depressive disorder, remission status unspecified (HCC) 10/17/2023 Mathew Cobian MD No Prostate cancer (HCC) 10/17/2023 Mathew Cobian MD No Congenital diplegia (HCC) 05/27/2021 Rochelle Cornelius PT, DPT No Spasticity 05/27/2021 Rochelle Cornelius PT, DPT No Costochondritis 05/27/2021 Rochelle Cornelius PT, DPT No Localized osteoporosis ([place]) 05/27/2021 Rochelle Cornelius PT, DPT No Cerebral palsy (HCC) Mathew Cobian MD No Nicotine use disorder, F17.2 02/11/2019 Zabrina Cevallos, DO No Back pain 02/10/2019 Zabrina Cevallos, DO No Chronic bilateral low back pain with right-sided sciatica 01/10/2018 Ray Giraldo, KEILA No Spinal stenosis of lumbar region 12/12/2017 Brian Ahmadi 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 No Overview Signed 12/12/2017 7:47 AM by Brian Ahmadi (Equipment Operator [employer]) MRI 11/2017 [facility] Thoracic or lumbosacral neuritis or radiculitis, unspecified 04/25/2014 Chuyita Boyer, PT No Bilateral hip pain 04/17/2009 O MemoKathryn patelin (Pt)(Hist) No SI (sacroiliac) joint dysfunction 04/17/2009 O Memo Xiomy (Pt)(Hist) No Hypothyroidism 03/27/2009 Mathew Cobian [...] tab(s) (PROTONIX) 20 mg ORAL DAILY Angelika Martines MD [START ON 05/13/2024] citalopram 40 mg tab(s) (CeleXA) 40 mg ORAL DAILY Angelika Martines MD [START ON 05/13/2024] levothyroxine 150 mcg (SYNTHROID) 150 mcg ORAL DAILY Angelika Martines MD cholecalciferol 1,000 Units tab(s) (VITAMIN D3) 1,000 Units ORAL DAILY Angelika Martines MD multivitamin-ferrous fumarate-folic acid 1 tablet (CENTRUM) 1 tablet ORAL DAILY Angelika Martines MD CURRENT ALLERGIES ALLERGIES No Known Allergies [...] discussed with the Patient or Patient's Authorized Management Advisor. Asapplicable, any other physician, advance practice provider, medical student, or other health professional student that will be observing or involved in the sensitive examination for educational or training purposes was discussed with the Patient or Authorized Management Advisor. The Patient or Authorized Management Advisor has agreed to proceed with the sensitive [...] MD CC: Brian Ahmadi documented in this encounterCommunity Memorial Hospital10-16-2024 Nurse Note* Arlene Baker MA - [...] N/A Last Colonoscopy: NONE Arlene Baker MA [facility]10-16-2024 Nurse Note* Arlene Baker MA - [...] NONE Arlene Baker MA documented in this encounterCommunity Memorial Hospital10-11-2024 History of Present illness Narrative* Brian Ahmadi 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 - 05/03/2024 10:40 AM EDT Chief Complaint [...] Continue to see general surgery. Brian Ahmadi APRN.PATTIE RTO if symptoms return. This note was partly generated using [employer] voice recognition dictation and may contain some misspelled or inaccurate words missed on review. documented in this encounterCommunity Memorial Hospital10-11-2024 NoteHNO ID: [id number] Author: BRIAN AHMADI APRN.CNP Service: ? Author [...] Continue to see general surgery. Brian Ahmadi 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 RTO if symptoms return. This note was partly generated using [employer] voice recognition dictation and may contain some misspelled or inaccurate words missed on review.[facility] Telephone encounter Note* Telephone Encounter - Michael Feliciano MA - 05/02/2024 7:30 AM EDT PSA pended. Michael Feliciano MA [facility]10-10-2024 Miscellaneous Notes* Telephone Encounter - Michael Feliciano MA - 05/02/2024 7:30 AM EDT PSA pended. Michael Feliciano MA documented in this encounterCommunity Memorial Hospital10-08-2024 History of Present illness Narrative* Brian Ahmadi 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 - 04/30/2024 1:20 PM EDT Chief Complaint Patient presents with: ER F/U: [facility] ER diverticulitis 04/23/2024 HPI Good De Luna is a 58 year old male who presents here today for Hospital Discharge Follow up. follow up for diverticulitis. Patient presenting for emergency room follow-up. Patient went to [facility] on April 23 for complaints of [...] was originally referred to Dr. Wood at [facility] but has not made an appointment. [...] 562.11, ICD10: K57.92 (primary diagnosis) -Diagnosed in [facility]. Last day of Augmentin. Not responding [...] immunization - ICD9: V03.89, ICD10: Z23 - PFIZER-BIONTConvozine COVID-19 VACCINE AGE 12+ YR ([place]) Brian Ahmadi APRN.CNP RTO in 3 days I spent a total of 31 minutes on the date of the service which included preparing to see the patient, [id number] patient care, completing clinical documentation, obtaining and/or reviewing separately obtained history, performing a medically appropriate examination, counseling and educating the pat ient/family/caregiver, and ordering medications, tests, or procedures. This note was partly generated using [employer] voice recognition dictation and may contain some misspelled or inaccurate words missed on review. documented in this encounterCommunity Memorial Hospital10-08-2024 NoteHNO ID: [id number] Author: BRIAN AHMADI APRN.PATTIE Service: ? Author Type: Nurse Practitioner Type: Progress Notes Filed: 04/30/2024 14:12 Note Text: Chief Complaint Patient presents with: ER F/U: [facility] ER diverticulitis 04/23/2024 HPI Good De Luna is a 58 year old male who presents here today for Hospital Discharge Follow up. follow up for diverticulitis. Patient presenting for emergency room follow-up. Patient went to [facility] on April 23 for complaints of [...] was originally referred to Dr. Wood at [facility] but has not made an appointment. [...] 562.11, ICD10: K57.92 (primary diagnosis) -Diagnosed in [facility]. Last day of Augmentin. Not responding [...] immunization - ICD9: V03.89, ICD10: Z23 - PFIZER-BIONTConvozine COVID-19 VACCINE AGE 12+ YR ([place]NATY) Brian Ahmadi 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 RTO in 3 days I spent a total of 31 minutes on the date of the service which included preparing to see the patient, ulcp-my-vzch patient care, completing clinical documentation, obtaining and/or reviewing separately obtained history, performing a medically appropriate examination, counseling and educating the patient/family/caregiver, and ordering medications, tests, or procedures. This note was partly generated using [employer] voice recognition dictation and may contain some misspelled or inaccurate words missed on review.[facility]10-03[facility] Telephone encounter Note* Telephone Encounter - Mathew Cobian MD - 04/25/2024 8:31 AM EDT OK to refill as ordered Mathew Cobian MD [facility]10[facility]03[facility]2024 Miscellaneous Notes* Telephone Encounter - Mathew [...] rx to be sent to [facility] pharmacy please, he said the [...] 24, 2024 2:40 PM documented in this encounterCommunity [facility]10-[facility] Telephone encounter Note * Telephone Encounter - Saniya Santoro LPN - 04/24/2024 2:37 PM EDT Patient calling has a message from Priya Ahamdi that he changed his Levothyroxine to 150 mcg and the pharmacy does not have new rx. Explained to patient dose was updated in computer. He is asking fornew rx to be sent to [facility] pharmacy please, he said the [...] Santoro LPN April 24, 2024 2:40 PM [facility]10-01-2024 Telephone encounter Note* Telephone Encounter - Brian Ahmadi APRN.CNP - 04/23/2024 2:26 PM EDT Noted and agree. Brian Ahmadi APRN.CNP [facility]10-01-2024 Miscellaneous Notes* Telephone Encounter - Brian Ahmadi APRN.CNP - 04/23/2024 2:26 PM EDT Noted and agree. Brian Daiana, MORTUARY BEAUTICIAN.PLUG MACHINE OPERATOR * Telephone Encounter - Ashlyn London RN [...] far. 10. : No Protocols used: Rectal Prxvoabq-WNCWJ-MD documented in this encounterCommunity [facility]10-[facility]-2024 Telephone encounter Note * Telephone Encounter [...] far. 10. : No Protocols used: Rectal Tscvjzrh-PIVIR-EQ [facility]09-25-2024 Instructions* Patient Instructions* Gypsy Ayala APRN.CNP - 04/17/2024 9:50 AM EDT Continue to take all medication as prescribed. Get repeat labs in June Keep up coming appointment with Neurology May get ultrasound to evaluate neck mass Follow up with ENT Follow up as scheduled or sooner pending test results. documented in this encounterCommunity [facility] Hospital09-25-2024 History of Present illness Narrative* Gyspy Ayala APRN.CNP - 04/17/2024 9:40 AM EDT This is [...] were discussed and patient voices understanding. Gypsy Ayala APRN.PATTIE This note was partially generated using [employer] voice recognition system. Note was reviewed for accuracy. There may be minor misspellings or grammar miscues with [employer] voice recognition. documented in this encounterCommunity Memorial Hospital09-25-2024 NoteHNO ID: [id number] Author: GYPSY AYALA APRN.CNP Service: ? Author Type: Nurse Practitioner [...] Continue with Synthroid 150 (more content not included)...[facility] History of Present illness Narrative* Brian Ahmadi APRN.[facility] - 04/12/2024 10:40 AM EDT Chief Complaint [...] fog, memory issues. I did order the Laverne score test last month but he has not completed. He will do so soon. He has follow-up with neurology in April with Dr. Cisse in [place]. He has been following with [facility] at [facility] for inner ear problems. He was given [...] medications for the past month. Brian Ahmadi APRN.PATTIE RTO in 3 months, sooner if needed. This note was partly generated using [employer] voice recognition dictation and may contain some misspelled or inaccurate words missed on review. documented in this encounterCommunity Memorial Hospital09-20-2024 NoteHNO ID: [id number] Author: BRIAN AHMADI APRN.PATTIE Service: ? Author Type: Nurse Practitioner [...] fog, memory issues. I did order the Laverne score test last month but he has not completed. He will do so soon. He has follow-up with neurology in April with Dr. Cisse in [place]. He has been following with [facility] at [facility] for inner ear problems. He was given [...] medications for the past month. Brian Ahmadi APRN.PATTIE RTO in 3 months, sooner if needed. This note was partly generated using [employer] voice recognition dictation and may contain some misspelled or inaccurate words missed on review.[facility] Telephone encounter Note* Telephone Encounter - Gabby Roldan LPN - 04/04/2024 3:25 PM EDT Patient notified of referral, verbalizes understanding of instructions. Gabby Roldan LPN [facility]-12[facility]24 Miscellaneous Notes* Telephone Encounter - Gabby Roldan LPN - 04/04/2024 3:25 PM EDT Patient notified of referral, verbalizes understanding of instructions. Gabby Roldan LPN * Telephone Encounter - Brian Ahmadi APRN.CNP - 04/04/2024 2:59 PM EDT Please let the patient know that I placed a referral to ENT. We usually have patients go to [place]. Brian Ahmadi APRN.CNP * Telephone Encounter - Angelika Geller LPN - 04/04/2024 2:06 PM EDT Pt calls requesting a referral for another ENT states is wanting a second opinion . Has been seeingsomeone here in [place]. Asking for someone maybe in [place]. Please advise. documented in this encounterCommunity [facility] Hospital09-12-2024 Telephone encounter Note * Telephone Encounter - Brian Ahmadi APRN.CNP - 04/04/2024 2:59 PM EDT Please let the patient know that I placed a referral to ENT. We usually have patients go to [place]. Brian Ahmadi APRN.PATTIE [facility]09-12-2024 Telephone encounter Note* Telephone Encounter - Angelika Geller LPN - 04/04/2024 2:06 PM EDT Pt calls requesting a referral for another ENT states is wanting a second opinion . Has been seeingsomeone here in [place]. Asking for someone maybe in [place]. Please advise. [facility]08[facility] Telephone encounter Note* Telephone Encounter - Scarlet Pascual LPN - 03/15/2024 12:00 PM EDT Phoned patient and reviewed provider's message with him. He voiced understanding. Scarlet Pascual LPN [facility]-23[facility]24 Miscellaneous Notes* Telephone Encounter - Scarlet Pascual LPN - 03/15/2024 12:00 PM EDT Phoned patient and reviewed provider's message with him. He voiced understanding. Scarlet Pascual LPN * Telephone Encounter - Brian Ahmadi APRN.CNP - 03/15/2024 11:22 AM EDT Patient saw urology 3 days ago. They placed a PSA to be completed in August. Brian Ahmadi APRN.PATTIE * Telephone Encounter - Scarlet Pascual LPN - 03/15/2024 10:57 AM EDT Following patient's appointment he was inquiring if he could get his PSA drawn to have it recheckedto ensure it's not getting higher. Advised patient would route provider a message since currently in with patient and get back with him once provider responds. Patient voiced understanding. Scarlet Pascual LPN documented in this encounterCommunity Memorial Hospital08-23-2024 Telephone encounter Note * Telephone Encounter - Brian Ahmadi APRN.CNP - 03/15/2024 11:22 AM EDT Patient saw urology 3 days ago. They placed a PSA to be completed in August. Brian Ahmadi APRN.CNP [facility] Telephone encounter Note* Telephone Encounter - Scarlet Pascual LPN - 03/15/2024 10:57 AM EDT Following patient's appointment he was inquiring if he could get his PSA drawn to have it recheckedto ensure it's not getting higher. Advised patient would route provider a message since currently in with patient and get back with him once provider responds. Patient voiced understanding. Scarlet Pascual LPN [facility] History of Present illness Narrative* Brian Ahmadi 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 - 03/15/2024 10:20 AM EDT Chief Complaint [...] reassess. - BACH SCREENING TEST Brian Ahmadi 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 RTO in 1 months, sooner if needed. This note was partly generated using [employer] voice recognition dictation and may contain some misspelled or inaccurate words missed on review. documented in this encounterCommunity [facility] Hospital08-21-2024 Telephone encounter Note * Telephone Encounter - Gabby Roldan LPN - 03/13/2024 9:19 AM EDT Pt has appt on 03/13 at 10:20 am. Gabby Roldan LPN [facility] Miscellaneous Notes* Telephone Encounter - Gabby Roldan LPN - 03/13/2024 9:19 AM EDT Pt has appt on 03/13 at 10:20 am. Gabby Roldan LPN * Telephone Encounter - Brian Ahmadi APRN.CNP - 03/13/2024 8:31 AM EDT Please assist with scheduling patient with myself for a follow up. His TSH is abnormal, we need to discuss changing his dose. I have openings on Monday for his convenience. Brian Ahmadi APRN.CNP documented in this encounterCommunity Memorial Hospital08-21-2024 Telephone encounter Note * Telephone Encounter - Brian Ahmadi APRN.CNP - 03/13/2024 8:31 AM EDT Please assist with scheduling patient with myself for a follow up. His TSH is abnormal, we need to discuss changing his dose. I have openings on Monday for his convenience. Brian Ahmadi APRN.CNP [facility] History of Present illness Narrative* Raphael Calderon [...] Calderon Jr, MD 03/12/2024 documented in this encounterCommunity Memorial Hospital08-06-2024 Telephone encounter Note * Telephone Encounter [...] know I would send his information to [facility] for him. Pt also missed his neurology appointment in [place] in December, Pt put through to scheduling to set up. Faxed demographic sheet, orders, and 10/17/23 OV note to fax # [phone]. [facility] Miscellaneous Notes* Telephone Encounter - Renard [...] know I would send his information to [facility] for him. Pt also missed his neurology appointment in [place] in December, Pt put through to scheduling to set up. Faxed demographic sheet, orders, and 10/17/23 OV note to fax # [phone]. documented in this encounterCommunity [facility] Hospital07-27-2024 History of Present illness Narrative* Geovanna Steele 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 - 02/17/2024 11:57 AM EDT Images from the original note were not included. Subjective Came in with complaints of itching rash on the left lower ankle. Patient says that he noticed it this morning. Patient was outside yesterday but did not get into [place]. Patient denies any other symptoms other than itching. The history is provided by the patient. No wire weaving loom setter was used. Rash Review of Systems Constitutional: [...] ICD10: R21 Patient was called in [facility] for the itching. Patient was educated about red flag symptoms to watch for such as swelling increased redness or pain. Patient will be reevaluated if anything changes. Patient was okay with this care plan. Geovanna Steele APRN.CNP documented in this encounterCommunity [facility] Hospital07-08-2024 Telephone encounter Note * Telephone Encounter - Brian Ahmadi APRN.CNP - 01/29/2024 2:32 PM EDT The following approved medication requests have been transmitted electronically. Requested Prescriptions Pending Prescriptions Disp Refills omeprazole (PRILOSEC) 20 mg capsule [Pharmacy Med Name: OMEPRAZOLE DR 20 MG CAPSULE] 90 capsule 3 Sig: take 1 capsule by mouth once daily Brian Ahmadi APRN.CNP [facility] Miscellaneous Notes* Telephone Encounter - Brian Ahmadi APRN.CNP - 01/29/2024 2:32 PM EDT The following approved medication requests have been transmitted electronically. Requested Prescriptions Pending Prescriptions Disp Refills omeprazole (PRILOSEC) 20 mg capsule [Pharmacy Med Name: OMEPRAZOLE DR 20 MG CAPSULE] 90 capsule 3 Sig: take 1 capsule by mouth once daily Brain Ahmadi APRN.CNP * Telephone Encounter - Sofia [...] 1 capsule by mouth once daily Sofia Cid January 29, 2024 12:31 PM documented in this encounterCommunity [facility] Hospital07-08-2024 Telephone encounter Note * Telephone Encounter [...] 1 capsule by mouth once daily Sofia Cid January 29, 2024 12:31 PM [facility] Work Phone: [phone] Telephone encounter Note* Telephone Encounter - Gabby Roldan LPN - 12/20/2023 6:12 PM EDT Patient notified of results, verbalizes understanding of instructions. Gabby Roldan LPN [facility]-29[facility]2024 Miscellaneous Notes* Telephone Encounter - Gabby Roldan LPN - 12/20/2023 6:12 PM EDT Patient notified of results, verbalizes understanding of instructions. Gabby Roldan LPN * Telephone Encounter - Gypsy Ayala APRN.CNP - 12/20/2023 12:41 PM EDT Can [...] he has any questions. Thank you. Gypsy Ayala APRN.CNP documented in this encounterCommunity [facility] Hospital05-29-2024 Telephone encounter Note * Telephone Encounter - Gypsy Ayala APRN.CNP - 12/20/2023 12:41 PM EDT Can [...] he has any questions. Thank you. Gypsy Ayala APRN.CNP [facility]-23-2024 Instructions* Patient Instructions* Gypsy Ayala APRN.CNP - 12/14/2023 11:37 AM EDT Get labs completed Take Claritin daily add on Flonase twice daily, rinse mouth afterwards. Recommend consult with Neurology (Dr. Melonie Mcneil). Follow up pending test results documented in this encounterCommunity Memorial Hospital05-23-2024 History of Present illness Narrative* Gypsy Ayala APRN.PATTIE - 12/14/2023 11:00 AM EDT This is [...] were discussed and patient voices understanding. Gypsy Ayala APRN.CNP This note was partially generated using [employer] voice recognition system. Note was reviewed for accuracy. There may be minor misspellings or grammar miscues with [employer] voice recognition. documented in this encounterCommunity [facility] Hospital05-16-2024 Telephone encounter Note * Telephone Encounter - Gypsy Ayala APRN.CNP - 12/07/2023 12:17 PM EDT The following approved medication requests have been transmitted electronically. Requested Prescriptions Pending Prescriptions Disp Refills levothyroxine (SYNTHROID) 175 mcg tablet [Pharmacy Med Name: LEVOTHYROXINE 175 MCG TABLET] 90 tablet 3 Sig: take 1 tablet by mouth every morning ON AN EMPTY STOMACH for THYROID Gypsy Ayala APRN.CNP [facility]-16[facility]2024 Miscellaneous Notes* Telephone Encounter - Gypsy Ayala APRN.CNP - 12/07/2023 12:17 PM EDT The following approved medication requests have been transmitted electronically. Requested Prescriptions Pending Prescriptions Disp Refills levothyroxine (SYNTHROID) 175 mcg tablet [Pharmacy Med Name: LEVOTHYROXINE 175 MCG TABLET] 90 tablet 3 Sig: take 1 tablet by mouth every morning ON AN EMPTY STOMACH for THYROID Gypsy Ayala APRN.CNP documented in this encounterCommunity [facility] Hospital05-15-2024 Telephone encounter Note * Telephone Encounter - Gypsy Ayala APRN.CNP - 12/06/2023 2:44 PM EDT The following approved medication requests have been transmitted electronically. Requested Prescriptions Signed Prescriptions Disp Refills LORazepam (ATIVAN) 0.5 mg 60 tablet 0 Sig: Take 1 tablet by mouth at bedtime as needed for up to 90 days. Authorizing Provider: GYPSY AYALA APRN.CNP PDMP website checked and validated. All prescriptions have been APPROPRIATELY filled. No suspiciousactivity was identified. 12/06/2023 by Gypsy Ayala APRN.CNP [facility] Miscellaneous Notes* Telephone Encounter - Gypsy Ayala APRN.CNP - 12/06/2023 2:44 PM EDT The following approved medication requests have been transmitted electronically. Requested Prescriptions Signed Prescriptions Disp Refills LORazepam (ATIVAN) 0.5 mg 60 tablet 0 Sig: Take 1 tablet by mouth at bedtime as needed for up to 90 days. Authorizing Provider: GYPSY AYALA APRN.CNP PDMP website checked and validated. All prescriptions have been APPROPRIATELY filled. No suspiciousactivity was identified. 12/06/2023 by Gypsy Ayala APRN.CNP * Telephone Encounter - Saniya Santoro [...] a new rx to be sent to [facility] pharmacy please. Pending rx if wanted. Please advise documented in this encounterCommunity [facility] Hospital05-15-2024 Telephone encounter Note * Telephone Encounter [...] a new rx [facility] please. Pending rx if wanted. Please advise [facility] Telephone encounter Note* Telephone Encounter - Ava Dunn RN - 12/06/2023 10:53 AM EDT Patient calling requesting to speak with planned giving officer. Patient states he cannot find his Lorazepam andwould like to see if it is possible for provider to call in a new prescription. Patient denies any new or worsening symptoms of which a provider is not aware:Yes . [facility]05-15-2024 Miscellaneous Notes* Telephone Encounter - Ava Dunn RN - 12/06/2023 10:53 AM EDT Patient calling requesting to speak with planned giving officer. Patient states he cannot find his Lorazepam andwould like to see if it is possible for provider to call in a new prescription. Patient denies any new or worsening symptoms of which a provider is not aware:Yes . documented in this encounterCommunity [facility] Hospital04-14-2024 Miscellaneous Notes* Telephone Encounter - Zoë [...] AM EDT ----- Message from Carolyn Nava 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 sent at 11/03/2023 7:14 AM EDT ----- Please advise patient the urine culture was negative for any infection. Follow instructions given by provider at visit, f/u with PCP if symptoms persist or worsen. documented in this encounterCommunity [facility] Hospital04-10-2024 History of Present illness Narrative* Terri [...] PATIENT PRESENTS WITH AN IMPLANTABLE OR ATTACHED BENCH MACHINE OPERATOR: No RADIOLOGY DEPARTMENT: Ultrasound PERIPHERAL IV DATA: Not applicable SIGNED BY: Terri Mackey TECHNOLOGIST November 01, 2023 5:17 PM documented in this encounterCommunity Memorial Hospital04-10-2024 History of Present illness Narrative* Barbara Quarles 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 - 11/01/2023 3:05 PM EDT This note was created using NoteWriter. Subjective Good De Luna is a 58 [...] Exam Vitals reviewed. Exam conducted with a trans router present. Constitutional: General: He is awake. He is not in acute distress. Appearance: Normal appearance. He is obese. He is not ill-appearing, toxic- appearing or diaphoretic. HENT: Head: Normocephalic and atraumatic. Right Ear: Hearing normal. Left Ear: Hearing normal. Nose: Nose normal. Mouth/Throat: Lips: [place]. No lesions. Eyes: General: Lids are normal. [...] do not improve Roseline Henry TEACHING PROVIDER (Physician/PA/MORTUARY BEAUTICIAN) NOTE OF PERSONAL INVOLVEMENT IN CARE: I have personally seen and examined the patient and performed the medical decision-making components. I have reviewed the Advanced Practice Registered Nurse (MORTUARY BEAUTICIAN) Student's documentation and verified the findings in the note as written. Any additions or changes are noted in bold/italics. Signature: Barbara Quarles Date: 11/01/2023 Time: 7:13 PM documented in this encounterCommunity [facility] Hospital04-04-2024 Miscellaneous Notes* Telephone Encounter - Mick Youngblood MA - 10/26/2023 4:53 PM EDT This has been signed and sent to be mailed out. Mick Youngblood MA * Telephone Encounter - Mick Youngblood MA - 10/26/2023 2:38 PM EDT Parking placard on PCP's desk to sign. Pt requesting to have this mailed to his home. Mick Youngblood MA documented in this encounterCommunity Memorial Hospital03-26-2024 History of Present illness Narrative* Mathew Cobian MD - 10/17/2023 10:00 AM EDT Chief Complaint Patient presents with: Hospital Follow Up HPI Good De Luna is a 58 year old male who presents here today for Hospital Discharge Follow up.. Pt went to [facility] on 09/26/23 and transferred to [facility] on 09/26/23 for Developmental venous anomaly. Stroke was ruled out. Discharged to 09/29/23 to [facility]. Pt was discharged from [facility] on 10/14/23. He states [...] care of Good De Luna at [facility]. As you [...] therapy. He is being discharged to an [facility] in a stable condition. This discharge plan [...] 07/24/2023 Influenza Vaccine(1) due on 01/21/2024 Covid-19 Vaccine() due on 10/16/2024 Annual PCP Team Chronic [...] Past Histories independently gathered by the clinical unit support representative and the remaining scribed note accurately describes [...] AM. Laura Whaley MA documented in this encounterCommunity Memorial Hospital03-25-2024 Miscellaneous Notes* Telephone Encounter - Mick Youngblood Ma - 10/16/2023 3:34 PM EDT Office has attempted to fax to number below 3 x with out success. Call to Adrianna and received VM. LM on to return call to office and speak with Triage Nurse. Please update Adrianna on message above. Is there another number we can fax too? Can we verify number below. Thanks, Mick Youngblood Ma * Telephone Encounter - Mick Youngblood Ma - 10/16/2023 1:25 PM EDT Office received discharge from [facility] in office. Faxed to Adrianna at information below. Mick Youngblood Ma * Telephone Encounter - Gabby Abarca RN - 10/16/2023 9:33 AM EDT Adrianna from [facility]. She states she wanted to make sure Dr. Cobian was aware that pt was discharged home on Monday from [facility]. She is asking that we fax pt's discharge summary to her at [phone]. Explained that it did not appear that we have it yet. She states whenever we get it to please fax it to her. documented in this encounterCommunity [facility] Hospital03-20-2024 Telephone encounter Note * Telephone Encounter - Tere Mak - 10/11/2023 11:55 AM EDT Name of caller: [place] [facility] Contact phone number: [phone] Appointment scheduled with: Dr. Taylor Appointment date & time: 10/18/23 8:00 AM Reason for visit (are you having any symptoms) : Developmental venous anomaly 09/26/23 ED admission Transportation issues/ concerns: No Special accommodations? ( wheel chair, etc) : None Current medications: No Any refills need: None Any chronic conditions the provider should be aware of: No [id number] Miscellaneous Notes* Telephone Encounter - Tere Mak - 10/11/2023 11:55 AM EDT Name of caller: [place] Relation to patient: [facility] Contact phone number: [phone] Appointment scheduled with: Dr. Taylor Appointment date & time: 10/18/23 8:00 AM Reason for visit (are you having any symptoms) : Developmental venous anomaly 09/26/23 ED admission Transportation issues/ concerns: No Special accommodations? ( wheel chair, etc) : None Current medications: No Any refills need: None Any chronic conditions the provider should be aware of: No documented in this [facility]03-11-2024 Miscellaneous Notes* Telephone Encounter - Uma Jett RN - 10/02/2023 3:58 PM EDT Adrianna [employer] Service Director with [facility] calls to report that patient was discharged from [facility] on 09/28 and admitted to [facility]. Uma Jett RN documented in this encounterCommunity Memorial Hospital03-08-2024 Nurse Note* Nursing Notes - Giselle Steele RN - 09/29/2023 10:49 AM EST Report called Mandi Miller RN. AVS,GLENROY faxed IVs discontinued Discharge suite to come transport pt to his SO. [facility]03-08-2024 Miscellaneous Notes* Nursing Notes - Giselle Steele RN - 09/29/2023 10:49 AM EST Report called Mandi Miller RN. AVS,GLENROY faxed IVs discontinued Discharge suite to come transport pt to his SO. * Plan of Care - Laura Gary, OT - 09/29/2023 8:11 AM EST Problem: [...] * Plan of Care - Froilan Stallworth, PT [...] Progressing * Plan of Care - Connie Jordan PT [...] 7:46 AM EST Neurosurgery Update: Consulted for [facility]. Briefly, Mr. Good De Luna is a 58 y.o. male w/ cerebral palsy, hypothyroidism, prostate cancer [place] 6 currently on surveillance p/w dizziness and [...] MD, Neurosurgery NS2 ([id number]) [facility] History of Present illness Narrative* Laura Gary OT - 09/29/2023 8:42 AM EST Acute [...] 12/31. Transfer Assessment/Intervention: Sit to Stand Transfer [place] Level: Sit->Stand: contact guard assist Assistive Device: Sit->Stand: gait belt, 2 wheeled walker Skilled Rationale: Verbal cues, Positioning, Hand placement, Full extension to upright positioning/posture, Technique of activity, Cues for increased safety Skilled Intervention/Details: Sit->Stand: x4 from EOB. Stand to Sit Transfer [place] Level: Stand->Sit: contact guard assist Assistive Device: Stand->Sit: gait belt, 2 wheeled walker Skilled Rationale: Verbal cues, Positioning, Hand placement, Technique of activity, Cues for increased safety Functional Mobility: Functional Mobility [place] Level: Functional Mobility/Gait: contact guard assist Assistive Device: Functional Mobility/Gait: 2 wheeled walker, gait belt Functional Mobility Distance: Distance needed to access restroom Ambulation Distance (Feet): 45 (15,15,5,5,5) Functional Mobility Deficits: Activity tolerance, Balance, Follow safety/precautions, Generalized weakness Functional Mobility Skilled Rationale: Verbal cues, Cues for increased safety, Energy conservation,Technique of activity Outcome Score(s): CURRENT [facility] Daily Activity Inpatient Short Form Putting on/Taking Off Lower Body Clothin - A Little Assistance Bathin - A Little Assistance Toiletin - A Little Assistance Putting on/Taking Off Upper Body Clothin - A Little Assistance Groomin - A Little Assistance Eatin - No Assistance CURRENT [facility] Activity Raw Score: 19 CURRENT [facility] Activity Functional Limitation/Modifier: 42.80% Currently [...] in reach. Time In: 744 Time Out: 810 Total Visit Time: 26 minutes Total Treatment [...] intake and follow-up with medicine. Follow-up in [facility] in outpatient clinic. Follow-up with PCP in 1 week. Cristina Chan MD * NYDIA Guzman - 09/28/2023 2:04 PM EST Care Management Discharge Note Selected Continued Care - Admitted Since 09/26/2023 Destination Coordination complete. Service Provider Selected Services Address Phone Fax Patient Preferred [facility] Inpatient Rehabilitation [address] [place] [address] ---- Patient medically stable for discharge per physician/medical team. Pt to discharge to [facility] tomorrow at 1300. SO to transport Pt to [facility]. The phone number for report is [phone], and the fax number for AVS/GLENROY is [phone]. Pt to schedule appointment with neurosurgery. Patient/Management Advisor remain in agreement with the discharge plan. ARMEN Martinez Automotive Service Director [phone] CM updated Pt's Home Care Waiver CM on the status of the discharge plan. ARMEN Martinez Automotive Service Director [phone] * Froilan Stallworth PT - 09/28/2023 1:37 PM EST Acute Physical Therapy Treatment Prior to Admission [facility] score(s): PRIOR LEVEL AM-PAC Mobility Raw [...] support. Mobility Assessment/Intervention: Supine to Sit Mobility [place] Level: Supine->Sit: stand-by assist Bed Features/Set-up: Supine->Sit: Flat Transfer Assessment/Intervention: Sit to Stand Transfer [place] Level: Sit->Stand: contact guard assist Assistive Device: Sit->Stand: gait belt, 2 wheeled walker Skilled Rationale: Verbal cues, Hand placement, Facilitate anterior shift Stand to Sit Transfer [place] Level: Stand->Sit: contact guard assist Assistive Device: Stand->Sit: gait belt Skilled Rationale: Verbal cues, Positioning, Controlled descent for sitting Gait/Functional Mobility Assessment/Intervention: Gait Assessment [place] Level: Gait: contact guard assist Assistive Device: [...] bilaterally to improve independence. Stairs Assessment/Intervention: CURRENT [facility] Basic Mobility Inpatient Short Form Turning [...] railin - A Lot of Assistance CURRENT [facility] Mobility Raw Score: 18 CURRENT [facility] Mobility Functional Limitation/Modifier: 46.58% Currently Impaired [...] discontinueantibiotics. DC to ARF today. Follow-up in [facility] in outpatient clinic. Follow-up with PCP in 1 week. Cristina Chan MD * ZOEY Fallon - 09/28/2023 9:04 AM EST Acute Care Speech Language Pathology Note Received consult for swallow evaluation. However, patient passed [place] Swallow Screening by nursing.Swallow eval by DIRECTOR OF PURCHASING will not be completed at this time unless this service notified of change in status or re-consult for swallow eval placed. DIRECTOR OF PURCHASING speech/language/cognitive consult received and chart review completed [...] Partner at bedside in agreement. Therefore, skilled DIRECTOR OF PURCHASING evaluation and services are not warranted at this time. DIRECTOR OF PURCHASING will complete consult. Discussed with pt who states awareness/indications for follow up in OP setting. Time in: 904 Time out: 922 No charge Cherise Powers MA, [facility]-DIRECTOR OF PURCHASING Pager: [phone] License: [email or web address] Email: [email or web address] * MACHELLE Jain - 09/28/2023 8:05 AM EST NEUROVASCULAR STROKE SERVICE Daily Progress Note IDENTIFYING INFORMATION Good De Luna MR# [id number] 09/28/2023 HISTORY OF PRESENT ILLNESS Good De [...] De Luna will likely be discharged to [facility] Herlinda SmithKALEB-PLUG MACHINE OPERATOR 09/28/2023 11:31 AM VITAL SIGNS Temp: [98 [...] Bed Availability Current Referrals and Status 1. [facility]accept[facility] is not expected to have a bed until or Monday. CM updated Pt and the treatment team. ARMEN Martinez Automotive Service Director [phone] * Miley Le OT - 09/27/2023 11:28 AM EST Referral has been received to evaluate for admission to [facility] for inpatient rehab. Will review and notify of determination via source of referral. [facility] to complete chart review when therapy evaluations available. Thank you, ILIA Paulino, OTR/L, CBIS Rehab Ethnographic Materials Conservator [address] [phone] / [email or web address] * Herlinda Smith APRN-PLUG MACHINE OPERATOR - 09/27/2023 10:31 AM EST NEUROVASCULAR STROKE SERVICE Daily Progress Note IDENTIFYING INFORMATION Good De Luna MR# [id number] 09/27/2023 HISTORY OF PRESENT ILLNESS Good De [...] De Luna will likely be discharged to [facility] Herlinda Smith APRN-PATTIE 09/27/2023 10:36 AM VITAL SIGNS Temp: [97.7 [...] mg Per NG tube Daily * Connie Jordan PT - 09/27/2023 10:25 AM EST Acute Physical Therapy Evaluation Prior to Admission [facility] score(s): PRIOR LEVEL AM-PAC Mobility Raw [...] Intact Mobility Assessment: Supine to Sit Mobility [place] Level: Supine->Sit: stand-by assist Skilled Rationale: Positioning, Sequencing, Verbal cues, Cues for increased safety Skilled Intervention/Details: Supine->Sit: stand by assist, cues for logroll due to back pain Sit to Supine Mobility [place] Level: Sit->Supine: minimum assist (75% patient effort) [...] standing. Transfer Assessment: Sit to Stand Transfer [place] Level: Sit->Stand: minimum assist (75% patient effort) Assistive Device: Sit->Stand: gait belt Skilled Rationale: Positioning, Sequencing, Verbal cues, Cues for increased safety, Technique of activity Skilled Intervention/Details: Sit->Stand: x2 from EOB, x1 from recliner, cues for safety throughout, requires cues to push from recliner instead of pulling on walker for support. Stand to Sit Transfer [place] Level: Stand->Sit: minimum assist (75% patient effort) Assistive Device: Stand->Sit: gait belt Skilled Rationale: Positioning, Hand placement, Sequencing, Verbal cues, Cues for increased safety Skilled Intervention/Details: Stand->Sit: Pt requires assist and cues for proximity of chair andcontrolled descent Gait/Functional Mobility: Gait Assessment [place] Level: Gait: minimum assist (75% patient effort) [...] clearance during bouts. Stairs: Outcome Score(s): CURRENT [facility] Basic Mobility Inpatient Short Form Turning [...] railin - A Lot of Assistance CURRENT [facility] Mobility Raw Score: 18 CURRENT [facility] Mobility Functional Limitation/Modifier: 46.58% Currently Impaired [...] (Moderate) Clinical Decision Making: Moderate Time In: 0957 Time Out: 1025 Total Visit Time: 28 [...] Consult: Discharge Planning Level(s) of Care Discussed: [facility] Patient and/or Management Advisor's Preferred Geographic Area for Discharge: [id number] Patient and/or Management Advisor's Preference for Providers to Include? [facility], [facility] and [facility] Patient and/or Management Advisor's Preference for Providers to Exclude? N/A Patient and/or Management Advisor's Discussion: Discussed referral process with the patient and/or digital sales representative. Patient and/or digital sales representative isagreeable to have placement referral initiated. Pt is medically ready for discharge. [facility] beds[facility]. Pt's third choice [facility] is able to accept. ARMEN Martinez Automotive Service Director [phone] 09/27/23, 1449 CM called [facility] for an update on the status of the referral. Admissions states that they are still reviewing the referral and should have an answer on whether or not they can accept bytomorrow morning. ARMEN Martinez Automotive Service Director [phone] * NYDIA Guzman - 09/27/2023 10:00 AM EST Discharge Planning Patient Assessment Admission Assessment Patient Assessment Completed: Initial Anticipated discharge disposition: Inpatient Rehab Facility Reason for Admission: Stroke work-up Is the patient able to participate in the assessment?: Yes Information source: Patient, Review of Medical Record Information Source Name/Contact: Good De LunaRpipbd-[phone] Demographics Verified and Updated: Yes Has the [...] Adult Children: Yes Name and Contact information: Barbara De Luna-[phone] Would you like to add additional adult children?: Yes Name and Contact information: Cee De LunaKnerya-[phone] Referral to Social Work to Identify Legal [...] Is the patient from a facility or nursing home?: No Patient lives with: Alone Living Environment: [...] services?: Yes Select Program, Services, Resources : [place] [facility]aiver (Pt's daughter Barbara is Pt's aid 20 hours per week. Pt's CM is Adrianna Pineda. Her phone number is [phone].) Does the patient have a Rubber Trimmer or Psychiatric Therapist?: Yes Rubber Trimmer or Psychiatric Therapist Agency, Name and Contact: Adrianna RosarioSkadzjk-[phone] Does patient use DME? : walker, wheelchair, [...] consults?: Yes Select consult type: PT, OT, DIRECTOR OF PURCHASING Does the patient's home require any home modifications for discharge? : No CM to recommend therapy or other consults? : No Medication Management Does the patient have prescription insurance coverage? : Yes Is the patient on Anticoagulation? : No [id number] [place] [address] - 1952 [facility] 1952 [facility] [address] Clinical Services Professional Does the patient or digital sales representative express financial concerns? : No Employed?: Disabled Coping/Stress Concerns about patient s coping and stress?: No Values and Beliefs Cultural or mormon practices that may impact discharge planning and/or [...] bedside. Pt is agreeable to discharging to [facility]. Pt's [address] [place] [address] has no beds available until next week. Awaiting review of referral by Pt's2nd and 3rd choices. [facility]. Pt is medically ready for discharge. ARMEN Martinez Automotive Service Director [phone] * Nguyễn Watson - 09/27/2023 9:57 AM [...] IADL History IADLs: needs assist Primary Language: Anguillan Home Management Skills: needs assist Medication Management: [...] Balance Skilled Intervention/Details: Completed functional mobility with DISTRESSER MIN Ax2 and 2WW with MIN Ax1 Neuro: Sensation Overall Sensation: Intact Gross Coordination Gross Coordination: bilat UE intact Fine Motor Coordination Additional Documentation: Yes Fine Motor Coordination Left Hand Thumb/Finger Opposition Skills: normal performance Right Hand Thumb/Finger Opposition Skills: normal performance Skin and Edema: Skin Integrity Skin Integrity Description: WFL Edema Edema: none noted Mobility Assessment: Supine to Sit Mobility [place] Level: Supine->Sit: stand-by assist Bed Features/Set-up: Supine->Sit: Head of bed elevated Skilled Rationale: Positioning, Sequencing, Verbal cues Skilled Intervention/Details: Supine->Sit: Educated on log roll due to back pain Sit to Supine Mobility [place] Level: Sit->Supine: minimum assist (75% patient effort) Bed Features/Set-up: Sit->Supine: Flat, Use of bed rail Skilled Rationale: Positioning, Sequencing, Verbal cues, Tactile cues Skilled Intervention/Details: Sit->Supine: Required assist for BLE's and educated on log roll technique. Transfer Assessment: Sit to Stand Transfer [place] Level: Sit->Stand: minimum assist (75% patient effort) Assistive Device: Sit->Stand: gait belt Skilled Rationale: Positioning, Sequencing, Verbal cues, Cues for increased safety, Technique of activity Skilled Intervention/Details: Sit->Stand: x2 from EOB, x1 from armed chair Stand to Sit Transfer [place] Level: Stand->Sit: minimum assist (75% patient effort) Assistive Device: Stand->Sit: gait belt Skilled Rationale: Positioning, Hand placement, Sequencing, Verbal cues, Cues for increased safety Skilled Intervention/Details: Stand->Sit: Cues for controlled descent Functional Mobility: Functional Mobility [place] Level: Functional Mobility/Gait: minimum assist (75% patient effort) Physical Assist: Functional Mobility/Gait: chair follow (1 person) Assistive Device: Functional Mobility/Gait: gait belt (2 trials: 1 DISTRESSER, 1 2WW) Functional Mobility Distance: Distance needed [...] Assessment Patient currently uses wheelchair?: No CURRENT -[facility] Daily Activity Inpatient Short Form Putting on/Taking Off Lower Body Clothin - A Little Assistance Bathin - A Little Assistance Toiletin - A Little Assistance Putting on/Taking Off Upper Body Clothin - A Little Assistance Groomin - A Little Assistance Eatin - No Assistance CURRENT AM-PAC Activity Raw Score: 19 CURRENT AM-PAC Activity Functional Limitation/Modifier: 42.80% Currently Impaired in [...] clinical decisions and judgements. * Gypsy Robert RPH - 09/26/2023 9:47 PM EST Department of [...] further questions. Name: Gypsy Robert RPH Phone: [phone] Date/Time: 09/26/2023 9:47 PM documented in this [facility]03-08-2024 Plan of care note* Plan of [...] UE ROM/Coordination/strength for ADLs. Outcome: Ongoing [facility]03-08-2024 Hospital course Narrative* Adam Munozkathryn, MORTUARY BEAUTICIAN-PLUG MACHINE OPERATOR - 09/29/2023 8:09 AM EST Discharge Summary Name: Good De Luna Age: 58 y.o. Birthday: 1965 Admit Date: 09/26/2023 9:41 PM Discharge Date: 09/29/23 Discharge Time: 1300 Discharge Unit: [facility] Admission Information Admitting Physician: Cristina Chan MD Discharge Information Discharge Physician: Dr. Cristina Chan Problem List Active Hospital Problems Diagnosis Developmental venous anomaly Resolved Hospital Problems No resolved problems to display. Brief Summary of Hospital Course for Discharge Summary: Dear Providers, We recently had the pleasure of taking care of Good De Luna at [facility]. As you [...] therapy. He is being discharged to an [facility] in a stable condition. This discharge plan [...] you take each medicine. Include all prescription ywvosdl-qci-pgocybf medicines, vitamins, and supplements. Keep this list [...] plan your refills so that you can order picker all your medicines at the same time. This can mean fewer trips to the drugstore. If we have prescribed you a new medication during your stay, please contact with your primary physician for refills Follow-up: Mathew Cobian MD [address] [facility] [id number] Follow up Neurosurgery Follow up Please call to schedule an appointment in 4-[address] Brothers[address] [address] [facility] Plan of care note* Plan of Care - Khadijah Rahman RN - 09/29/2023 2:51 AM EST Problem: Patient Care Overview Goal: Discharge Needs Assessment Outcome: Progressing Goal: Interdisciplinary Rounds/Family Conf Outcome: Progressing [facility]03-07-2024 Plan of care note* Plan of [...] (DVA) and Urine Cx reviewed (ATB d/c'd) [facility]03-07-2024 Plan of care note* Plan of [...] safely navigate home and community. Outcome: Progressing [facility]03-07-2024 Miscellaneous Notes* Telephone Encounter - Mathew Cobian MD - 09/28/2023 11:48 AM EST Noted Mathew Cobian MD * Telephone Encounter - Lissa Rich RN - 09/27/2023 3:10 PM EST Federica with [employer] [facility] calls to let provider know that patient was transferred to [facility] from [facility] ED yesterday for stroke like symptoms. She reports patient is doing well and stroke has been ruled out. Federica requests if we receive discharge summary to fax it to her at [phone]. Lissa Rich RN [facility] Plan of care note* Plan of [...] (reference Stroke (Ischemic) (Adult) CPG). Outcome: Progressing [facility]03-06-2024 Plan of care note* Plan of Care - Connie Jordan, PT [...] safely navigate home and community. Outcome: Ongoing [facility]03-06-2024 Plan of care note* Plan of Care [...] and safety during daily routine. Outcome: Ongoing [facility]03-06-2024 Hospital Discharge instructions* Discharge Instructions* Herlinda Lopez LuisKALEB-PLUG MACHINE OPERATOR - 09/27/2023 8:41 AM EST Please take [...] may call your neurovascular doctors office at [phone], if you have questions between 8:30 am and 4:30 pm. - For off hours or the weekend you may call the office or the hospital nickel plant operator at and ask for the stroke resident operations lieutenant to be paged. - If you have any questions or needs, please call Delilah MACE RN, stroke program managerat [phone] Mon-Fri from -. Additional Contacts: Evening and Weekend Contacts If you have questions or concerns during evening, weekend, or holiday hours, please call: -[facility] and [facility] nickel plant operator at [phone]. -[facility] nickel plant operator at [phone] Ask the nickel plant operator to page the on-call doctor for Neurovascular service, they were responsible for your care while you were in the hospital. If you having an emergency, call 911. Case Management Office [phone] *In the event of an Emergency: If you have a physical or psychiatric emergency call 911 or go to your local emergency department. You should also call your outpatient provider's emergency number. Other reference numbers: [facility] Intake Office at [phone]; [facility] at [phone]; or Suicide Prevention Hotline at 348-422-2466. *Helpful phone numbers: Free Crisis Hotline: 6-392-041-TALK ( ) Suicide Hotline: 812.890.2816 Seniors Suicide Hotline: 621.456.6759 [facility] Youth: 422.904.6605 Mental Health of [place]: 561.729.8687 (free counseling) [employer] Access Hotline: 669-909-WFKX (354-833-2272) 24-hour crisis text hotline: Text the word 4hope to 249-611 for crisis support. Texting this number is [...] you may qualify for Medicaid/public assistance: The [facility] Department of Job and Family Services can now process barreto (TANF), food (SNAP) and Medicaid Applications over the phone. Please call [phone] ([phone]) and apply over the phone or apply online at www.benefits.[place].gov. Monday-Monday 8am-12pm noon. Medication Assistance Programs [employer] members can buy 100+ common prescriptions for FREE, $3 or $6. Annual membership is $36 for individuals and $72 for families (up to 6 people, including pets). Sign up online or enroll at your nearest pharmacy! -[employer], web site can provide a significant number of coupons for medications at a much lower kaiser. [place] Department of Aging The Department of Aging administers programs and services to meet the needs of older [place]. Services and resources offered per county may include transportation, housekeeping, meals and nutrition, personal care, case management, safety monitoring, home medical equipment, legal services, financial accounting analyst, health and wellness, education, caregiver support, respite care, etc. Call to be connected to the area agency on aging serving your community or visit aging.[place].gov/find-services. Request a consultation with a community resource expert at ltssi.age.[place].gov/ [facility] Stroke Support The [facility] Stroke Support Group is for stroke survivors, friends, and family members. Meets on the Monday of each month from 6:30pm-7:30pm at [facility] ([address]; [place] [address]). Contact Linda Verde, at [phone] or [email or web address]. If you are outside of the [place] area, contact The [place] Stroke [employer] at www.strokeassociation.org or 6-640-0-stroke, or for supports groups in your area. [...] you take each medicine. Include all prescription fsilwqb-gwc-noszacp medicines, vitamins, and supplements. Keep this list [...] plan your refills so that you can order picker all your medicines at the same [...] breathing -Fever or chills documented in this [facility]03-06-2024 History and physical note* Cristina Chan [...] LE, start antibitoics for UTI. Follow-up in [facility] in outpatient clinic. Follow-up with PCP in 1 week. Cristina Chan MD [facility]03-06-2024 History and physical note* Cristina Chan [...] week. Cristina Chan MD documented in this [facility]03-[facility]-2024 Plan of care note* Plan of Care - Sanjay Ledesma MD - 09/27/2023 7:46 AM EST Neurosurgery Update: Consulted for [facility]. Briefly, Mr. Good De Luna is a [...] questions. Sanjay Ledesma MD, Neurosurgery NS2 ([phone]) [facility] Work Phone: 1(487) 847-671003-06-2024 Emergency department Note* Nela Blanco RN - 09/27/2023 12:14 AM EST Per farooq Dowell to go to mri off tele. [facility] Emergency department Note* Nela Blanco RN - 09/27/2023 12:14 AM EST Per farooq Dowell to go to mri off tele. * [...] 09/26/2023 9:57 PM Rate: normal Rhythm: normal [place]: normal Intervals: normal ST segments: normal T [...] hemorrhage, dissection, brain mass Clayton Burnham MD, [facility] Cutter of Internal and Emergency Medicine Division of [...] still be present Evan Burnham MD 09/26/23 2309 * Nela Blanco RN - 09/26/2023 9:42 [...] date: Expected time: Means of arrival: Comments: De Luna-nih 0 * Alfredo Zhao MD - 09/26/2023 [...] nausea, vomiting,changes in bowel/bladder habits. LKW: 3d RELIGIOUS LEADER Deficits include: None Anticoagulation/Antiplatelets: None Prior strokes: [...] on admitting, then he can come to [facility]U under Dr. Chan Medications Lidocaine 1% [...] stroke alert. Pt is a transfer from [facility] . SW called and confirmed with [facility] that family waspresent there and aware of [facility]. Patient Contacts (08/25) barbara De Luna Child [phone] Cee De Luna Child [phone] SW to remain available for any needs, once pt arrives to [facility]. ARMEN Minaya [phone] documented [facility] NoteAcute Coronary Syndrome (ACS): Initial Evaluation and Management: [email or web address] hospital/sites/ebm/Documents/Guidelines/Acute%20Coronary%20Sy ndrome.pdf#search=troponin [facility]03-05-2024 Consult note* Sebastian Roque MD - 09/26/2023 10:28 PM ESTAssociated Order(s): IP CONSULT TO SURGERY - NEURO Neurosurgery Consult Note Reason for Consultation: IPH HPI Mr. Good De Luna is a 58 y.o. male w/ cerebral palsy, hypothyroidism, prostate cancer [place] 6 currently on surveillance p/w dizziness and [...] in the care of this patient. [facility] Work Phone: 1(967) 440-625303-05-2024 Consult note* Sebastian Roque MD - 09/26/2023 [...] NS2 ([id number]) ## neurosurgery coverage changes at 529/1729; if 05 or 1729 has passed since original consult note placed, [...] alert was called for STAT consultation. LKW 09/22. Since then, has been feeling foggy and [...] NIH Facial Palsy (Provider) 0 filed on 09/26/20232139 NIH Left Arm Motor (Provider) 0 filed on 09/26/20232139 NIH Right Arm Motor (Provider) 0 filed on 09/26/2023 214 NIH Left Leg Motor (Provider) 0 filed on 09/26/2023 214 NIH Right Leg Motor (Provider) 0 filed on 09/26/20232139 NIH Limb Ataxia (Provider) 0 filed on 09/26/20232139 NIH Sensory (Provider) 0 filed on 09/26/20232139 NIH Best Language (Provider) 0 filed on 09/26/20232139 NIH Dysarthria (Provider) 0 filed on 09/26/20232139 [...] tablet 8.6 mg 8.6 mg Oral Daily Keihsa Alcantara MD Or Senna (SENOKOT) tablet 8.6 [...] no drift Left Leg: no drift Coordination: Xuizmh-ig-plne intact bilaterally. Sensation: intact to light touch throughout without extinction. Gait: not assessed. Laboratory Results Diagnostics/Procedures: Labs-CBC WBC/Hgb/Hct/Plts: 10.33/14.5/43.8/252 (09/25 2209) Labs-Chem 7([facility]) Bun/Creat/Cl/CO2/Glucose: 18/0.88/103/24/97 (09/25 2209) Na/K+/Phos/Mg/Ca: 135/4.1/3.4/1.9/9.5 [...] ED. Continuous telemetry -PT, OT, Speech and bilingual social worker consults Other problems: Complexity. Obesity Body mass [...] questions, please contact the on-call resident or PATRICK listed on WebXChange.The author of this note does not necessarily reflect the individual operations lieutenant. Please page with urgent questions, as IHIS Secure Chat is not a reliable method for urgent needs. Signed, Keisha Alcantara MD Neurology documented in this encounterOSOhio[facility]03-05-[facility]24 Physician Emergency department Note* Evan Burnham MD [...] 09/26/2023 9:57 PM Rate: normal Rhythm: normal [place]: normal Intervals: normal ST segments: normal T [...] hemorrhage, dissection, brain mass Clayton Burnham MD, [facility] of Internal and Emergency Medicine Division of [...] may still be present Evan Burnham MD 09/26/236 [facility] Work Phone: 1(645) 991-986703-05-2024 Emergency department Note* Nela Blanco RN - 09/26/2023 9:42 PM EST Pt presents via ground transport as hemorrhagic stroke alert. LKW Monday evening. Patient developed dizziness without falls, no trauma. Patient reportedly has no deficits. Went to OSH today and was found to have R frontal ICH on imaging. Patient presents to [facility] alert, oriented. EM and Neurovasc teams present on arrival for evaluation. Gluc 87 [facility]03-05-2024 Emergency department Note* Connie Savage RN - 09/26/2023 9:41 PM EST Bed: E036 Expected date: Expected time: Means of arrival: Comments: Calixto-nih 0 [facility]03-05-2024 Physician Emergency department Note* Alfredo Zhao MD [...] nausea, vomiting,changes in bowel/bladder habits. LKW: 3d RELIGIOUS LEADER Deficits include: None Anticoagulation/Antiplatelets: None Prior strokes: [...] NSG. If they are not planning intervention, NVMT will take patinet on their service. ED Course as of 09/26/232223Sep 26, 20238 Per Neuro: If NSGY isn't planning on any acute intervention or isn't planning on admitting, then he can come to [facility]U under Dr. Chan Medications Lidocaine 1% (PF) (XYLOCAINE MPF) 1 % injection 0.3 mL (has no administration in time range) Disposition: Admission, PCU level at least Medical Decision Making Amount and/or Complexity of Data Reviewed Labs: ordered. Radiology: ordered. ECG/medicine tests: ordered. Risk Prescription drug management. Alfredo Zhao MD This note was dictated using [employer] Dict[employer] Software. Attempts at proofreading have been made, however errors may still occasionally occur. Alfredo Zhao MD Resident 09/26/232225 [facility] Work Phone: [phone] Emergency department Note* NYDIA Casper - 09/26/2023 9:31 PM EST ED SW responded to stroke alert. Pt is a transfer from [facility] . SW called and confirmed with OSH that family waspresent there and aware of transfer [facility]. Patient Contacts (2/) barbara De Luna Child [phone] Cee De Luna Child [phone] SW to remain available for any needs, once pt arrives to [facility] ED. ARMEN Minaya [phone] [facility]03-05-2024 Consult note* Keisha Alcantara MD - [...] alert was called for STAT consultation. LKW 09/22. Since then, has been feeling foggy and [...] NIH Best Gaze (Provider) 0 filed on 09/26/20232139 NIH Visual (Provider) 0 filed on 09/26/20232139 NIH Facial Palsy (Provider) 0 filed on 09/26/20232139 NIH Left Arm Motor (Provider) 0 filed on 09/26/20232139 NIH Right Arm Motor (Provider) 0 filed on 09/26/2023 214 NIH Left Leg Motor (Provider) 0 filed on 09/26/20232139 NIH Right Leg Motor (Provider) 0 filed on 09/26/20232139 NIH Limb Ataxia (Provider) 0 filed on 09/26/20232139 NIH Sensory (Provider) 0 filed on 09/26/20232139 NIH Best Language (Provider) 0 filed on 09/26/20232139 NIH Dysarthria (Provider) 0 filed on 09/26/20232139 [...] no drift Left Leg: no drift Coordination: Ghjppu-at-rqfm intact bilaterally. Sensation: intact to light touch throughout without extinction. Gait: not assessed. Laboratory Results Diagnostics/Procedures: Labs-CBC WBC/Hgb/Hct/Plts: 10.33/14.5/43.8/252 (09/25 2209) Labs-Chem 7([facility]) Bun/Creat/Cl/CO2/Glucose: 18/0.88/103/24/97 (09/25 2209) Na/K+/Phos/Mg/Ca: 135/4.1/3.4/1.9/9.5 [...] ED. Continuous telemetry -PT, OT, Speech and bilingual social worker consults Other problems: Complexity. Obesity Body mass [...] questions, please contact the on-call resident or PATRICK listed on WebXChange.The author of this note does not necessarily reflect the individual operations lieutenant. Please page with urgent questions, as IHIS Secure Chat is not a reliable method for urgent needs. Signed, Keisha Alcantara MD Neurology [facility] Work Phone: [phone]) [phone] Miscellaneous Notes* Telephone Encounter - Gabby Roldan LPN - 09/15/2023 8:27 AM EST Patient notified of results, verbalizes understanding of instructions. Gabby Roldan LPN * Telephone Encounter - Gypsy Ayala APRN.PATTIE - 09/15/2023 7:33 AM EST Can you please call the patient and let him know that I reviewed his lab results. Vitamin D, B12, and folate were normal. TSH was elevated, I would recommend increasing Synthroid to175 mcg. Recheck labs in 8 weeks. Prescription was sent to [facility] in [place]. Please let me know if he has any questions. Thank you. The following approved medication requests have been transmitted electronically. Requested Prescriptions Signed Prescriptions Disp Refills levothyroxine (SYNTHROID) 175 mcg tablet 30 tablet 11 Sig: Take 1 tablet by mouth once daily. Take on empty stomach. For Thyroid. Authorizing Provider: GYPSY AYALA APRN.PATTIE documented in this encounterCommunity [facility]02-[facility]24 History of Present illness Narrative* Gypsy Ayala APRN.PATTIE - 09/14/2023 12:40 PM EST This is [...] were discussed and patient voices understanding. Gypsy Ayala APRN.CNP This note was partially generated using [employer] voice recognition system. Note was reviewed for accuracy. There may be minor misspellings or grammar miscues with [employer] voice recognition. documented in this encounterCommunity Memorial Hospital02-22-2024 Instructions* Patient Instructions* Gypsy Ayala APRN.CNP - 09/14/2023 12:40 PM EST Get labs completed Recommend consult with Sleep Medicine to discuss CPAP/ Sleep Apnea, Dr. Luna Unable to remove ear wax, recommend using Debrox ear drops twice daily for 5-7 days May follow up in the office for repeat ear flushing. Following up pending test results or sooner as needed. documented in this encounterCommunity Memorial Hospital02-02-2024 Miscellaneous Notes* Telephone Encounter - Laura [...] When form is completed, Fax form to [phone] Form has been forwarded to Physician Desk: Dr. Mango Youngblood Ma documented in this encounterCommunity Memorial Hospital02-02-2024 Miscellaneous Notes* Telephone Encounter - Mathew Cobian MD - 08/25/2023 11:36 AM EST Done in / phone note Mathew Cobian MD * Telephone Encounter - Mick Youngblood Ma - 08/17/2023 9:14 AM EST Office received form from [facility] [employer]. Member requesting a Grab bar. They are requesting an Rx for this item and recent OV notes. Printed recent OV notes with Brian Ahmadi CNP on 07/14/23. Please print Rx for Grab Bar. Once completed will fax back to [phone]. Mick Youngblood Ma documented in this encounterCommunity Memorial Hospital01-08-2024 History of Present illness Narrative* Claire Larson [...] 31, 2023 1:17 PM documented in this encounterCommunity Memorial Hospital11-22-2023 Miscellaneous Notes* Telephone Encounter - Brian Ahmadi APRN.CNP - 06/14/2023 11:04 AM EST The following approved medication requests have been transmitted electronically. Requested Prescriptions Pending Prescriptions Disp Refills levothyroxine (SYNTHROID) 150 mcg tablet [Pharmacy Med Name: LEVOTHYROXINE 150 MCG TABLET] 90 tablet 1 Sig: take 1 tablet by mouth once daily on an empty stomach Brian Ahmadi APRN.CNP * Telephone Encounter - Levi Paniagua LPN - 06/14/2023 10:58 AM EST Last refill 12/20/22 Qty: 90 with 1 refill GUILHERME 12/20/22 NOV none scheduled. Pt no showed appointment 02/14/23 Levi Paniagua LPN documented in this encounterCommunity Memorial Hospital09-25-2023 Miscellaneous Notes* Telephone Encounter - Laura Whaley Ma - 04/17/2023 1:14 PM EDT Office received fax from [facility] Dr. Conklin's office notifying officethat pt will not be accepted or seen by their office due to pt have to many no shows and cancellations. Laura Whaley Ma documented in this encounterCommunity Memorial Hospital09-24-2023 Miscellaneous Notes* Telephone Encounter - Zoë Miller MA - 04/16/2023 7:50 AM EDT Patient has viewed results via Unii. Zoë Miller MA * Telephone Encounter - Zoë Miller MA - 04/14/2023 7:39 AM EDT Left VM instructing patient to return call to receive results. Zoë Miller MA * Telephone Encounter - Geovanna Steele APRN.CNP - 04/14/2023 7:19 AM EDT No significant growth continue treatment plan as discussed with provider. If symptoms worsen pleasefollow up with your primary care provider. documented in this encounterCommunity Memorial Hospital09-20-2023 History of Present illness Narrative* Geovanna Steele APRN.CNP - 04/12/2023 7:36 PM EDT CC: [...] symptoms occur. Patient agreeable to treatment plan. Geovanna Steele 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 documented in this encounterCommunity Memorial Hospital09-20-2023 Miscellaneous Notes* Telephone Encounter - Ashlyn London RN - 04/12/2023 11:13 AM EDT Patient reports he has UTI. Reports he is having burning w/urination, feels like full bladder but hardly anything comes out, urgency, frequency, since last night. Patient unsure if he can find ride into clinic, but agreeable to try, and will go to for evaluation. documented in this encounterCommunity Memorial Hospital09-06-2023 History of Present illness Narrative* Calli Morris - 03/29/2023 12:34 PM EDT POPULATION HEALTH NAVIGATION OUTREACH Action/I [place] Support: Called pt to schedule an appt in Pain Management. Lvm for pt to call [phone] for scheduling. Patient Identified by Name and [...] 29, 2023 12:34 PM documented in this encounterCommunity Memorial Hospital08-24-2023 Miscellaneous Notes* Telephone Encounter - Laura [...] advise, Uma Jett RN documented in this encounterCommunity Memorial Hospital08-24-2023 Discharge summary Author Davy Dupree [facility] March 16, 2023 1:25pm Note Date/Time March 16, 2023 1: 25pm [facility] Physical [facility] [address] [place] [address] / REHABILITATION SERVICES DISCHARGE SUMMARY MR#: [id number] Acct: [id number] Name: GOOD DE LUNA Rep #: [id number] : 1965 57 From: Davy Dupree DPT, OCS, CSCS Referring Dr.: Dr. Mathew Cobian MD Status: REG RCR Insurance: MEDICARE PART A B [facility] Discharge Summary D/C summary: It has [...] please feel free to call me at [phone]. Thank you for the referral of thispatient. Sincerely, Davy Dupree, DPT, OCS, CSCS Balance/Gait/Functional tests Balance/Special Test Scores Lower Extremity Functional Score: 28 Improvement % Improvement: 75 <Electronically signed by Davy ARBOLEDAT, OCS, CSCS> 03/16/23 1325 CC: Dr. Mathew Cobian MD ~ EBG Signed [facility] Work Phone: 1(981) 868-465607-01-2023 Miscellaneous Notes* Telephone Encounter - Laura Whaley Ma - 01/21/2023 8:17 AM EDT Faxed. Laura Whaley Ma * Telephone Encounter - Mathew Cobian MD - 01/20/2023 5:13 PM EDT Form and letter done Mathew Cobian MD * Telephone Encounter - Mick Youngblood Ma - 01/12/2023 1:35 PM EDT Type of form: Health & Wellness Membership Medical Freeze from [employer] (see note on fax) Form received via fax When form is completed, Fax form to [phone] Form has been forwarded to Physician Desk: [...] the letter is to [facility] thru [facility]. Please advise pt thru MyChart or phone. Arlene Trammell LPN documented in this encounterCommunity Memorial Hospital06-12-2023 Miscellaneous Notes* Telephone Encounter - Mick Youngblood Ma - 01/02/2023 8:12 AM EDT Letter mailed to pt notifying him we've attempted to reach him by phone and [employer] Networks[employer] regarding letter. Asked for call back and [...] continue driving privileges. Letter to continue his [place] membership to maintain fitness. Mick Youngblood Ma [...] before. Please call Jaquan when created at [phone] documented in this encounterCommunity Memorial Hospital05-30-2023 History of Present illness Narrative* Brian Ahmadi 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 - 12/20/2022 10:20 AM EDT Chief Complaint [...] needed. This note was partly generated using [employer] voice recognition dictation and may contain some misspelled or inaccurate words missed on review. documented in this encounterCommunity Memorial Hospital05-04-2023 Miscellaneous Notes* Telephone Encounter - Laura Whaley Ma - 11/24/2022 2:35 PM EDT Form faxed back. Laura Whaley Ma * Telephone Encounter - Laura Whaley Ma - 11/24/2022 2:34 PM EDT Type of letter/form/fax request - Medical Necessity-CPAP supplies Form received from on fax floor and placed on desk (Dr. Cobian) for completion. Completed form needs to be faxed to [facility] at [phone]. Route to [place] when form completed for processing documented in this encounterCommunity Memorial Hospital04-24-2023 Miscellaneous Notes* Addendum Note - Mathew [...] pt. Arlene Trammell LPN documented in this encounterCommunity Memorial Hospital02-24-2023 Miscellaneous Notes* Telephone Encounter - Tyra [...] uses pharmacy on file. [facility] [address]. Patient would like a phone call to discuss commercial about a new medicine on market for Prostate Cancer Also when should patient follow up? documented in this encounterCommunity Memorial Hospital12-30-2022 Miscellaneous Notes* Telephone Encounter - Mathew [...] Thank you. Uma Zamudio documented in this encounterCommunity Memorial Hospital11-18-2022 Miscellaneous Notes* Telephone Encounter - Mick Youngblood Ma - 06/10/2022 11:58 AM EST Pt sent Alter-G message with information below. Made aware new [...] daily Mathew Cobian MD documented in this encounterCommunity Memorial Hospital11-15-2022 Instructions* Patient Instructions* Mick Youngblood Ma - 06/07/2022 3:03 PM EST Take Vitamin D3 2,000 to 5,000 international unit(s) daily over the counter. Schedule Rheumatology appt. Schedule Neurology appt as ordered. Check labs today. documented in this encounterCommunity Memorial Hospital11-15-2022 History of Present illness Narrative* Mathew [...] was tested when he was at the [facility] for another flare up of Iritis. This [...] going through withdrawal. Pt has been in [facility] ED several times with admission. Notes that [...] CPAP nightly. Does well. Gets supplies through [employer]. Vit D - Daily Vitamin D3 50,000 [...] Past Histories independently gathered by the clinical unit support representative and the remaining scribed note accurately describes [...] PM. Mick Youngblood Ma documented in this encounterCommunity Memorial Hospital09-28-2022 Miscellaneous Notes* Telephone Encounter - Uma Rene 04/20/2022 11:13 AM EDT Appointment changed as directed. Uma Zamudio * Telephone Encounter - Tyra Yung LPN - 04/20/2022 11:05 AM EDT Okay to make today's visit a telephone visit instead. Please change. Patient is aware. Patient can be reached at [phone]. Tyra Yung LPN * Telephone Encounter - Sofia Moreira - 04/20/2022 10:44 AM EDT Pt would like to know if he could have a phone visit instead of a VV today. He has some transportation conflicts. documented in this encounterCommunity Memorial Hospital09-27-2022 History of Present illness Narrative* Helder Sibley DO - 04/19/2022 4:57 PM EDT TELEPHONE VISIT 10 minutes PSA down to 1.45 DX: prostate cancer PLAN: Repeat PSA in 6 months. Helder Sibley DO documented in this encounterCommunity Memorial Hospital08-11-2022 Miscellaneous Notes* Telephone Encounter - Fitz Wagner MD - 03/03/2022 9:40 AM EDT Patient's request for medication is as follows Requested Prescriptions Signed Prescriptions Disp Refills LORazepam (ATIVAN) 0.5 mg 60 tablet 0 Sig: Take 1-2 tablets by mouth once daily as needed for up to 30 days. Authorizing Provider: FITZ WAGNER Order entered - please phone pharmacy and notify patient. Fitz Wagner MD * Telephone Encounter - Sofia Moreira [...] and advise. Sofia Moreira documented in this encounterCommunity Memorial Hospital08-10-2022 History of Present illness Narrative* Laura Whaley Ma - 03/02/2022 2:04 PM EDT TRANSITION CARE MANAGEMENT (TCM) INITIAL CONTACT Food Service Supervisor Outreach Provider Action/FYI: 14 day TCM He [...] might be hidden SUMMARY: -Pt discharged from [facility] on 03/01/22. -Admitted for: Alcohol abuse Below copied from [facility] Meditech: Chief Complaint: Substance Abuse Narrative Narrative: 56-year-old [...] him to follow-up at the counseling center asan outpatient. Upon conversation it sounds like the [...] for provider to review documented in this encounterCommunity Memorial Hospital07-28-2022 Miscellaneous Notes* Telephone Encounter - Sofia Munoz - 02/17/2022 4:09 PM EDT Received verbal order for physical therapy orders [facility] [place], Sent to Dr. Ardon for signaturethen fax to [phone] documented in this encounterCommunity Memorial Hospital06-27-2022 Miscellaneous Notes* Telephone Encounter - Sarah Edmondson LPN - 01/17/2022 8:07 AM EDT Left detailed message on VM. Sarah Edmondson LPN * Telephone Encounter - Hardik Remy DO Grabiel - 01/15/2022 4:17 PM EDT Good news. Can let him know the area in the left pelvis bone is unchanged and therefore benign. Follow up as scheduled. Hardik Spain DO documented in this encounterCommunity Memorial Hospital06-24-2022 History of Present illness Narrative* Hardik [...] performed concurrently and will be reported separately. Scalder (topogram) images: No additional findings. IMPRESSION: No [...] appearance. No pericardial effusion or pericardial thickening. Scalder (topogram) images: No additional findings. IMPRESSION: Sclerotic [...] Staff Review Reviewed by Lindsay Payne MD ([id number]) MPA IgG, Serum 700 - 1,600 mg/dL 1,150 MPA IgA, Serum 70 - 400 mg/dL 391 MPA IgM, Serum 40 - 230 mg/dL [address] [place] Free, Serum 3.30 - 19.40 mg/L 22.9 (H) Lambda Free, Serum 5.7 - 26.3 mg/L 18.8 K/L Ratio, Serum 0.26 - 1.65 1.22 MPA Result No M protein is identified. No M protein is identified. Staff Review (MPA) Reviewed by Lindsay Payne MD ([id number]) WSR was 10 mm/hr on 05/20/2021 CRP [...] Abs Lymph 1.00 - 4.00 k/uL 1.80 Baldwin% % 7.1 Abs Baldwin <0.87 k/uL 0.78 Eosin% % 0.9 Abs [...] bones. -Previously reviewed with Ortho oncology at [facility]. Follow-up plain film of the pelvis was [...] necessary. Hardik Spain DO documented in this encounterCommunity Memorial Hospital06-24-2022 History of Present illness Narrative* RT [...] 14, 2022 10:32 AM documented in this encounterCommunity Memorial Hospital06-03-2022 Miscellaneous Notes* Telephone Encounter - Mick Youngblood Ma - 12/24/2021 11:37 AM EDT Pt rx faxed to [facility]. States that he's been receiving his supplies from there without issues. Faxed to [phone]. Mick Youngblood Ma * Telephone Encounter - Mick Youngblood Ma - 12/24/2021 8:12 AM EDT Sent Alter-G message to pt notifying him of previous DME Co response. Asked pt who original Co was that he used. Mick Youngblood Ma * Telephone Encounter - Mathew Cobian MD - 12/23/2021 5:09 PM EDT Prescriptions printed Mathew Cobain MD * Telephone Encounter - Mick Youngblood Ma - 12/23/2021 10:00 AM EDT Please see pt message and advise. Also please see information below from TE 08/30/21. Ramón from [facility] calling to state due to insurance and due to patient having 2 failed compliance periods, they are unable to provide supplies for patient. Patient would have to go through[facility] provider for equipment. Pt previously got supplies through [facility] from note back on 01/05/18. Mick Youngblood Ma documented in this encounterCommunity Memorial Hospital06-01-2022 Miscellaneous Notes* Telephone Encounter - Sofia Munoz - 12/22/2021 4:06 PM EDT Home health care plans have been fax to lashawn Macias Rn at [phone] * Telephone Encounter - Sofia Munoz - 12/22/2021 3:52 PM EDT Received home health plan of care and certification paperwork from lashawn rutledge Sent to Dr. Ardon for review, fax back to [phone] documented in this encounterCommunity Memorial Hospital05-23-2022 Miscellaneous Notes* Telephone Encounter - Brian Ahmadi APRN.CNP - 12/13/2021 11:04 AM EDT The following approved medication requests have been transmitted electronically. Pending Prescriptions Disp Refills LEVOTHYROXINE 200 MCG TABLET 90 tablet 1 Sig: Take 1 tablet by mouth once daily. Take on empty stomach. For Thyroid. JUDITH: No Brian Ahmadi APRN.CNP * Telephone Encounter - Gabby Roldan LPN - 12/13/2021 11:02 AM EDT Patient phones requesting refills as follows: Pending Prescriptions Disp Refills LEVOTHYROXINE 200 MCG TABLET 90 tablet 1 Sig: Take 1 tablet by mouth once daily. Take on empty stomach. For Thyroid. JUDITH: No GUILHERME-04/16/21 Labs-09/22/21 NOV-none med filled 04/16/21 ends 09/22/21 Please review and advise. Gabby Roldan LPN documented in this encounterCommunity Memorial Hospital05-21-2022 Miscellaneous Notes* Telephone Encounter - Merlyn [...] SYMPTOMS: Denies Protocols used: BLOOD PRESSURE - [id number] documented in this encounterCommunity Memorial Hospital05-06-2022 Miscellaneous Notes* Telephone Encounter - Mathew [...] notify patient. Indy Berumen documented in this encounterCommunity Memorial Hospital04-06-2022 Miscellaneous Notes* Telephone Encounter - Patricia Jeffers MA - 10/27/2021 10:24 AM EDT Type of letter/form/fax request - Home Health Certification and Plan of Care Form received from LashawnPamaria elena on 2C floor and placed on MD desk () for completion. Completed form needs to be faxed to [phone]. Route to [place] when form completed for processing Patricia Jeffers MA documented in this encounterCommunity Memorial Hospital08-26-2021 History of Present illness Narrative* Juju [...] 18, 2021 1:48 PM documented in [facility] encounterC[facility] [facility] No data available for this section [facility] Evaluation note* Diagnosis Sleep apnea, unspecified type- Primary documented in this encounter [facility]* Diagnosis Abnormal x-ray of pelvis- Primary Nonspecific (abnormal) findings on radiological and other examination of abdominal area, including retroperitoneum documented in this encounter [facility] note* Diagnosis Abnormal x-ray of pelvis Nonspecific (abnormal) findings on radiological and other examination of abdominal area, including retroperitoneum documented in this encounter [facility] noteNo assessment information availableGerman Hospital Work Phone: Evaluation note* Diagnosis Prostate cancer (HCC) Malignant neoplasm of prostate documented in this encounter [facility] note* Diagnosis Malignant neoplasm of prostate (HCC)- Primary Malignant neoplasm of prostate documented in this encounter [facility] note* Diagnosis Cerebral palsy, unspecified type (HCC)- [...] to other disease documented in this encounter [facility] note* Diagnosis Hypothyroidism, unspecified type- Primary [facility] Diagnosis Prostate cancer (HCC) Malignant neoplasm of prostate documented in this encounter [facility] note* Diagnosis Hypothyroidism, unspecified type- Primary Vitamin D deficiency Unspecified vitamin D deficiency Alcohol use GERD without esophagitis Esophageal reflux documented in this encounter [facility] note* Diagnosis Cerebral palsy, unspecified type (HCC)- Primary Congenital diplegia (HCC) Congenital diplegia Hypothyroidism, unspecified type GERD without esophagitis Esophageal reflux Anxiety Anxiety state, unspecified JODEE (obstructive sleep apnea) Obstructive sleep apnea (adult) (pediatric) Prostate cancer (HCC) Malignant neoplasm of prostate Vitamin D deficiency Unspecified vitamin D deficiency Recurrent major depressive disorder, remission status unspecified (HCC) documented in this encounter [facility] note* Diagnosis Chronic bilateral low back pain with right-sided sciatica- Primary [facility] Diagnosis Urinary frequency- Primary Prostatitis, acute Acute prostatitis documented in this encounter [facility] note* Diagnosis JODEE (obstructive sleep apnea)- Primary Obstructive sleep apnea (adult) (pediatric) Bilateral impacted cerumen Impacted cerumen Brain fog Hypothyroidism, unspecified type Vitamin D deficiency Unspecified vitamin D deficiency documented in this encounter [facility] note* Diagnosis Hypothyroidism, unspecified type- Primary documented in this encounter [facility] note* Diagnosis Developmental venous anomaly- Primary Congenital anomaly of the peripheral vascular system, unspecified site Developmental venous anomaly Congenital anomaly of the peripheral vascular system, unspecified site Pre-syncope Syncope and collapse [facility] follow-up- Primary Other follow-up examination Screening for colon cancer Special screening for malignant neoplasms, colon Chronic bilateral low back pain with right-sided sciatica Dizziness Dizziness and giddiness Cerebral palsy, unspecified type (HCC) Recurrent major depressive disorder, remission status unspecified (HCC) Prostate cancer (HCC) Malignant neoplasm of prostate documented in this encounter [facility] note* Diagnosis Pain in right testicle- Primary Unspecified disorder of male genital organs Right groin pain Abdominal pain, right lower quadrant documented in this encounter [facility] note* Diagnosis Pain in right testicle Unspecified disorder of male genital organs [facility] Diagnosis Hypothyroidism, unspecified type documented in this encounter [facility] note* Diagnosis Anxiety Anxiety state, unspecified documented in this encounter [facility] note* Diagnosis Hypothyroidism, unspecified type documented in this encounter [facility] note* Diagnosis Irritability- Primary Anxiety Anxiety state, unspecified Memory changes Memory loss Hypothyroidism, unspecified type Sensation of fullness in both ears Cerebral palsy, unspecified type ([facility]) Alcohol use documented in this encounter [facility] note* Diagnosis GERD without esophagitis Esophageal reflux documented in this encounter [facility] note* Diagnosis Rash- Primary Rash and other nonspecific skin eruption documented in this encounter [facility] note* Diagnosis Prostate cancer (HCC) Malignant neoplasm of prostate [facility] Diagnosis Hypothyroidism, unspecified type- Primary Recurrent major depressive disorder, remission status unspecified ([facility]) MANNY (generalized anxiety disorder) Generalized anxiety disorder Memory loss documented in this encounter [facility] note* Diagnosis Dizziness and giddiness- Primary documented in this encounter [facility] note* Diagnosis Recurrent major depressive disorder, remission status unspecified (HCC)- Primary MANNY (generalized anxiety disorder) Generalized anxiety disorder Hypothyroidism, unspecified type documented in this encounter [facility] note* Diagnosis Hypothyroidism, unspecified type- Primary documented in this encounter [facility] note* Diagnosis Hypothyroidism, unspecified type- Primary Memory loss Neck mass Swelling, mass, or lump in head and neck documented in this encounter [facility] note* Diagnosis Hypothyroidism, unspecified type documented in this encounter [facility] note* Diagnosis Pain Generalized pain [facility] Diagnosis Diverticulitis- Primary Diverticulitis of colon (without mention of hemorrhage) Bloody stools Blood in stool Encounter for immunization Need for other specified prophylactic vaccination against single bacterial disease Diverticulitis- Primary Diverticulitis of colon (without mention of hemorrhage) Bloody stools Blood in stool documented in this encounter [facility] note* Diagnosis Prostate cancer (HCC)- Primary Malignant neoplasm of prostate Diverticulitis- Primary Diverticulitis of colon (without mention of hemorrhage) Bloody stools Blood in stool documented in this encounter [facility] note* Diagnosis Diverticulitis- Primary Diverticulitis of colon (without mention of hemorrhage) Bloody stools Blood in stool [facility] Diagnosis Blood in stool- Primary Diverticulitis Diverticulitis of colon (without mention of hemorrhage) Bloody stools Blood in stool Rectal bleeding- Primary Hemorrhage of rectum and anus [facility] Diagnosis Rectal bleeding- Primary Hemorrhage of rectum and anus Diverticulitis Diverticulitis of colon (without mention of hemorrhage) Bloody stools Blood in stool [facility] Diagnosis Abrasion of lower leg, unspecified laterality, initial encounter- Primary documented in this encounter [facility] note* Diagnosis History of colonic polyps- Primary Personal history of colonic polyps documented in this encounter [facility] note* Diagnosis Confusion- Primary Unspecified psychosis documented in this encounter [facility] note* Diagnosis Congenital malformation- Primary Congenital anomaly, unspecified Venous anomaly Congenital anomaly of the peripheral vascular system, unspecified site documented in this encounter [facility] note* Diagnosis Hypothyroidism, unspecified type- Primary Recurrent major depressive disorder, remission status unspecified (HCC) Anxiety Anxiety state, unspecified Confusion Unspecified psychosis documented in this encounter [facility] note* Diagnosis Hypothyroidism, unspecified type- Primary documented in this encounter [facility] note* Diagnosis Hospital discharge follow-up- Primary Other follow-up examination Closed fracture of proximal end of right fibula, unspecified fracture morphology, sequela Prostate cancer (HCC) Malignant neoplasm of prostate [facility] Diagnosis Other closed fracture of proximal end of right fibula, initial encounter [facility] Diagnosis Tobacco abuse Tobacco use disorder [facility] Diagnosis Other closed fracture of proximal end of right fibula, initial encounter- Primary Other closed fracture of proximal end of right fibula, initial encounter documented in this encounter [facility] note* Diagnosis Other closed fracture of proximal end of right fibula, initial encounter- Primary documented in this encounter [facility] note* Diagnosis Other closed fracture of proximal end of right fibula with routine healing, subsequent encounter- Primary documented in this encounter [facility] note* Diagnosis Other closed fracture of proximal end of right fibula, initial encounter [facility] Prostate cancer (HCC) Malignant neoplasm of prostate [facility] Diagnosis Sore throat- Primary Acute pharyngitis Viral illness Unspecified viral infection, in conditions classified elsewhere and of unspecified site Seasonal allergic rhinitis, unspecified trigger [facility] Diagnosis Diverticulitis- Primary Diverticulitis of colon (without mention of hemorrhage) Skin tags, multiple acquired Hypothyroidism, unspecified type- Primary Recurrent major depressive disorder, remission status unspecified Anxiety Anxiety state, unspecified [facility] Diagnosis Blood in stool- Primary Diverticulitis Diverticulitis of colon (without mention of hemorrhage) Fatigue, unspecified type Low energy Chronic bilateral low back pain with right-sided sciatica Hypothyroidism, unspecified type- Primary Recurrent major depressive disorder, remission status unspecified Anxiety Anxiety state, unspecified [facility] Diagnosis Sore throat- Primary Acute pharyngitis Allergic rhinitis, unspecified seasonality, unspecified trigger [facility] Diagnosis Thrush- Primary Candidiasis of mouth [facility] Diagnosis Anxiety Anxiety state, unspecified [facility] Diagnosis Sleep apnea, unspecified type GERD without esophagitis Esophageal reflux [facility] Diagnosis Obstructive sleep apnea syndrome- Primary Obstructive sleep apnea (adult) (pediatric) Bilateral impacted cerumen Impacted cerumen [facility] Diagnosis Orthopnea- Primary Bilateral impacted cerumen Impacted cerumen Orthopnea [facility] Dis[facility] instructionsAdditional Instructions Your workup today is most consistent with peripheral vertigo. Please stop your lorazepam and begin using the Valium that was prescribed as this will better help to control your symptoms. Stay well-hydrated and continue your other medications as directed. Return to the ER should you have any further concerns[facility] Work Phone: Hospital Discharge instructionsAdditional Instructions Please continue with the nystatin that was prescribed by your family doctor to add the medications from the ER to help resolve symptoms and control pain. Return to the ER should you have any further concerns. It will typically take 3 to 5 days for symptom improvementWCh[facility] Work Phone: Reason for referral (narrative)* Diagnostic Procedure Only (Routine) - Authorized Specialty Diagnoses / Procedures Referred By Contac t Referred To Contact XR IMAGING Diagnoses Abnormal x-ray of pelvis Procedures XR PELVIS 1V AP RADIOLOGIC EXAMINATION PELVIS 1/2 VIEWS Hardik Spain, DO [address] [place] [address] Xr Imaging Referral ID Status Reason Start Date Expiration Date Visits Requested Visits Authorized [id number] Authorized Auto-Generat ed Referral 01/14/2022 02/13/2023 1 1 [facility] [place] for referral (narrative)* Diagnostic Procedure Only (Routine) - Closed Specialty Diagnoses / Procedures Referred By Contac t Referred To Contact XR IMAGING Diagnoses Abnormal x-ray of pelvis Procedures XR PELVIS 1V AP RADIOLOGIC EXAMINATION PELVIS 1/2 VIEWS Hardik Spain, DO [address] [place] [address] Xr Imaging Referral ID Status Reason Start Date Expiration Date V isits Requested Visits Authorized [id number] Closed Auto-Generate d Referral 10/13/2021 11/12/2022 1 1 [facility] [place] for referral (narrative)* Consultation (Routine) - New Request Specialty Diagnoses / Procedures Referred By Contac t Referred To Contact Neurologic Surgery Diagnoses Developmental venous anomaly Herlinda Smith, MORTUARY BEAUTICIAN-PLUG MACHINE OPERATOR [address] [place] [address] Referral ID Status Reason Start Date Expiration Date V isits Requested Visits Authorized [id number] New Request 09/28/2023 10/22/2024 1 1 * Radiology (Emergency) - New Request Specialty Diagnoses / Procedures Referred By Contac t Referred To Contact Procedures ECG Cristina Chan MD [address] [facility] [place] [address] Referral ID Status Reason Start Date Expiration Date V isits Requested Visits Authorized [id number] New Request 09/27/2023 10/21/2024 1 1 * (Routine) Specialty Diagnoses / Procedures Referred By Contac t Referred To Contact [address] [place] [address] Referral ID Status Reason Start Date Expiration Date Visits Re quested Visits Authorized * Unlisted Procedure Code (Routine) - New Request Specialty Diagnoses / Procedures Referred By Contac t Referred To Contact Procedures DVT/VTE RISK ASSESSMENT Cristina Chan MD [address] [facility] [place] [address] Referral ID Status Reason Start Date Expiration Date V isits Requested Visits Authorized [id number] New Request 09/27/2023 10/21/2024 1 1 * Radiology (Emergency) - New Request Specialty Diagnoses / Procedures Referred By Contac t Referred To Contact Procedures ECG Jacqui Ron MD [address] [address] Referral ID Status Reason Start Date Expiration Date V isits Requested Visits Authorized [id number] New Request 09/26/2023 10/20/2024 1 1 * Radiology (Emergency) - New Request Specialty Diagnoses / Procedures Referred By Contac t Referred To Contact Procedures ECG Evan Burnham MD [address] [facility] [address] [place] [address] Referral ID Status Reason Start Date Expiration Date V isits Requested Visits Authorized [id number] New Request 09/26/2023 10/20/2024 1 1 * Unlisted Procedure Code (Routine) - New Request Specialty Diagnoses / Procedures Referred By Contac t Referred To Contact Procedures NO PHARMACOLOGICAL DVT PROPHYLAXIS Annette Santoyo APRN-CNP [address] [place] [address] Referral ID Status Reason Start Date Expiration Date V isits Requested Visits Authorized [id number] New Request 09/27/2023 10/21/2024 1 1 * Unlisted Procedure Code (Routine) - New Request Specialty Diagnoses / Procedures Referred By Contac t Referred To Contact Procedures DVT/VTE RISK ASSESSMENT Annette Santoyo APRN-CNP [address] [place] [address] Referral ID Status Reason Start Date Expiration Date V isits Requested Visits Authorized [id number] New Request 09/27/2023 10/21/2024 1 1 * Radiology (Routine) - New Request Specialty Diagnoses / Procedures Referred By Contac t Referred To Contact Procedures ECG Annette Santoyo APRN-CNP [address] [place] [address] Referral ID Status Reason Start Date Expiration Date V isits Requested Visits Authorized [id number] New Request 09/27/2023 10/21/2024 1 1 [facility] for referral (narrative)* Diagnostic Procedure Only (Urgent) - Closed Specialty Diagnoses / Procedures Referred By Contac t Referred To Contact US IMAGING Diagnoses Pain in right testicle Procedures US SCROTUM AND CONTENTS US SCROTUM & CONTENTS Barbara Quarles, MORTUARY BEAUTICIAN.PLUG MACHINE OPERATOR [address] [place] [address] [place] [address] Referral ID Status Reason Start Date Expiration Date V isits Requested Visits Authorized [id number] Closed Auto-Generate d Referral 11/01/2023 11/30/2024 1 1 [facility] [place] for referral (narrative)* Diagnostic Procedure Only (Urgent) - Closed Specialty Diagnoses / Procedures Referred By Contac t Referred To Contact US IMAGING Diagnoses Pain in right testicle Procedures US SCROTUM AND CONTENTS US SCROTUM & CONTENTS Barbara Quarles 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 [address] [place] [address] [place] [address] Referral ID Status Reason Start Date Expiration Date V isits Requested Visits Authorized [id number] Closed Auto-Generate d Referral 11/01/2023 11/30/2024 1 1 [facility] [place] for referral (narrative)* Diagnostic Procedure Only (Routine) - Authorized Specialty Diagnoses / Procedures Referred By Contac t Referred To Contact US IMAGING Diagnoses Neck mass Procedures US HEAD/NECK SOFT TISSUE OTHER US SOFT TISSUE HEAD & NECK REAL TIME IMGE Gypsy Guillory 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 [address] [place] [address] [place] [address] Referral ID Status Reason Start Date Expiration Date Visits Requested Visits Authorized [id number] Authorized Auto-Generat ed Referral 04/17/2024 05/17/2025 1 1 [facility] [place] for referral (narrative)* Diagnostic Procedure Only (Routine) - Closed Specialty Diagnoses / Procedures Referred By Contac t Referred To Contact XR IMAGING Diagnoses Pain Procedures XR HIP BILAT 5V PEL/AP/LAT EACH HIP RADEX HIPS BILATERAL WITH PELVIS MINIMUM 5 VIEWS Gerardo Lopez PA-C [address] [address] [place] [address] Referral ID Status Reason Start Date Expiration Date V isits Requested Visits Authorized [id number] Closed Auto-Generate d Referral 03/15/2021 04/14/2022 1 1 [facility] [place] for referral (narrative)* Outpatient Procedure (Routine) - Authorized Specialty Diagnoses / Procedures Referred By Contac t Referred To Contact [facility] Diagnoses Diverticulitis Bloody stools Procedures COLONOSCOPY DIAGNOSTIC COLONOSCOPY FLX DX W/COLLJ SPEC WHEN PFJOJOD Gilson Bar, DO [address] [place] [address] [facility] Disease [place] [id number] Referral ID Status Reason Start Date Expiration Date Visits Requested Visits Authorized [id number] Authorized Auto-Generat ed Referral 05/08/2025 1 1 [facility] [place] for referral (narrative)* Outpatient Procedure (Routine) - Closed Specialty Diagnoses / Procedures Referred By Contac t Referred To Contact [facility] Diagnoses Diverticulitis Bloody stools Procedures COLONOSCOPY DIAGNOSTIC COLONOSCOPY FLX DX W/COLLJ SPEC WHEN PFGilson Giraldo, DO [address] [place] [address] [facility] [place] [phone] Referral ID Status Reason Start Date Expiration Date V isits Requested Visits Authorized [id number] Closed Auto-Generate d Referral 05/08/2024 05/08/2025 1 1 [facility] [place] for referral (narrative)* Diagnostic Procedure Only (Routine) - Closed Specialty Diagnoses / Procedures Referred By Contac t Referred To Contact XR IMAGING Diagnoses Other closed fracture of proximal end of right fibula, initial encounter Procedures XR TIBIA FIBULA 2V AP/LAT RIGHT RADIOLOGIC EXAMINATION TIBIA & FIBULA 2 VIEWS Tammie Walters PA-C [address] [place] [address] [place] [address] Referral ID Status Reason Start Date Expiration Date V isits Requested Visits Authorized [id number] Closed Auto-Generate d Referral 07/29/2024 08/28/2025 1 1 [facility] [place] for referral (narrative)* Diagnostic Procedure Only (Routine) - New Request Specialty Diagnoses / Procedures Referred By Contac t Referred To Contact XR IMAGING Diagnoses Other closed fracture of proximal end of right fibula, initial encounter Procedures XR TIBIA FIBULA 2V AP/LAT RIGHT RADIOLOGIC EXAMINATION TIBIA & FIBULA 2 VIEWS Tammie Walters PA-C [address] [place] [address] [place] [address] Referral ID Status Reason Start Date Expiration Date Visits Requested Visits Authorized [id number] New Request Auto-Generat ed Referral 08/20/2024 09/19/2025 1 1 [facility] for referral (narrative)No reason for referral information availableW[facility] Work Phone: [facility] for visit Narrative* Diagnostic Procedure Only (Routine) - Closed Specialty Diagnoses / Procedures Referred By Contac t Referred To Contact XR IMAGING Diagnoses Abnormal x-ray of pelvis Procedures XR PELVIS 1V AP RADIOLOGIC EXAMINATION PELVIS 1/2 VIEWS Hardik Spain, [address] [place] [address] Xr Imaging Referral ID Status Reason Start Date Expiration Date V isits Requested Visits Authorized [id number] Closed Auto-Generate d Referral 10/13/2021 11/12/2022 1 1 [facility] [place] for visit Narrative* Diagnostic Procedure Only (Urgent) - Closed Specialty Diagnoses / Procedures Referred By Contac t Referred To Contact US IMAGING Diagnoses Pain in right testicle Procedures US SCROTUM AND CONTENTS US SCROTUM & CONTENTS Barbara Quarles, MORTUARY BEAUTICIAN.PLUG MACHINE OPERATOR [address] [place] [address] [facility] Referral ID Status Reason Start Date Expiration Date V isits Requested Visits Authorized [id number] Closed Auto-Generate d Referral 11/01/2023 11/30/2024 1 1 [facility] [place] for visit Narrative* Outpatient Procedure (Routine) - Closed Specialty Diagnoses / Procedures Referred By Contac t Referred To Contact [facility] Diagnoses Diverticulitis Bloody stools Procedures COLONOSCOPY DIAGNOSTIC COLONOSCOPY FLX DX W/COLLJ SPEC WHEN PFRMD Gilson Bar, DO [address] [place] [address] [facility] [address] [place] [phone] Referral ID Status Reason Start Date Expiration Date V isits Requested Visits Authorized [id number] Closed Auto-Generate d Referral 05/08/2024 05/08/2025 1 1 [facility] [place] for visit Narrative* Diagnostic Procedure Only (Routine) - Closed Specialty Diagnoses / Procedures Referred By Contac t Referred To Contact XR IMAGING Diagnoses Other closed fracture of proximal end of right fibula, initial encounter Procedures XR TIBIA FIBULA 2V AP/LAT RIGHT RADIOLOGIC EXAMINATION TIBIA & FIBULA 2 VIEWS Vetovitz, Tammie, PA-C [address] [place] [address] Xr Imaging [facility] Referral ID Status Reason Start Date Expiration Date V isits Requested Visits Authorized [id number] Closed Auto-Generate d Referral 07/29/2024 08/28/2025 1 1 [facility] [place] for visit Narrative* Diagnostic Procedure Only (Routine) - Closed Specialty Diagnoses / Procedures Referred By Contac t Referred To Contact XR IMAGING Diagnoses Other closed fracture of proximal end of right fibula, initial encounter Procedures XR TIBIA FIBULA 2V AP/LAT RIGHT RADIOLOGIC EXAMINATION TIBIA & FIBULA 2 VIEWS Vetovitz, Tammie, PA-C [address] [place] [address] [place] [address] Referral ID Status Reason Start Date Expiration Date V isits Requested Visits Authorized [id number] Closed Auto-Generate d Referral 08/20/2024 09/19/2025 [facility]/CT (Routine) - Closed Specialty Diagnoses / Procedures Referred By Contac t Referred To Contact MR IMAGING Diagnoses Prostate cancer (HCC) Procedures MRI PROSTATE WO/W IVCON MRI PELVIS W/O & W/CONTRAST MATERIAL Raphael Calderon Jr., MD [address] [place] [address] Phone: tel: fax: [place] [address] Referral ID Status Reason Start Date Expiration Date V isits Requested Visits Authorized [id number] Closed Auto-Generate d Referral 03/12/2024 04/11/2025 1 1 [facility] Summary Purpose Family History Relationship Condition Age at Onset Recorded Date/T сергей Not Specified Diabetes mellitus Unknown Relationship Condition Age at Onset Recorded Date/T сергей Not Specified Diabetes mellitus Unknown Malignant neoplasm Unknown Advance Directives Documents on File Type Date Recorded Patient Management Advisor Expl anation Advance Directive(s) Advance Directive(s) 09/22/2021 12:25 PM Advance Directive(s) 09/07/2021 11:52 AM Advance Directive(s) 02/09/2019 9:49 PM Documents on File Type Date Recorded Patient Management Advisor Expl anation Advance Directive(s) Advance Directive(s) 09/22/2021 12:25 PM Advance Directive(s) 09/07/2021 11:52 AM Advance Directive(s) 02/09/2019 9:49 PM Advance Directive Response Recorded Date/ Time Advance Directives No March 12:14pm Living Will No February 27, 2022 12:43pm Power of Application Manager No February 27 12:43pm Advance Directive Response Recorded Date/ Time Advance Directives No March 12:14pm Living Will No February 27, 2022 6:01pm Power of Application Manager No February 27 6:01pm Latest Code Status on File Code Status Date Activated Date Inactivated Comments Full Code 09/27/2023 12:30 AM Advance Directive Response Recorded Date/ Time Living Will No Eliazar 30th, 2 024 7:04pm Do you have a Healthcare Power of Application Manager? No July 22, 2024 7:04pm Living Will No November 05, 2024 8:19pm Do you have a Healthcare Power of Application Manager? No November 05, 2024 8:19pm Advance Directives No March 12:14pm Advance Directive Response Recorded Date/ Time Do you have a Healthcare Power of Application Manager? No January 20, 2025 11:30pm Living Will No November 05, 2024 8:19pm Do you have a Healthcare Power of Application Manager? No November 05, 2024 8:19pm Advance Directives No March 12:14pm Advance Directive Response Recorded Date/ Time Do you have a Healthcare Power of Application Manager? No January 20, 2025 11:30pm Living Will No November 05, 2024 8:19pm Do you have a Healthcare Power of Application Manager? No November 05, 2024 8:19pm Do you have a Healthcare Power of Application Manager? No January 29, 2025 10:51pm Advance Directives No March 12:14pm Chief Complaint and Reason for Visit Chief Complaint ANXIETY Chief Complaint CP RX HERE Chief Complaint Admit Date CALF PAIN July 22, 2024 3:32pm DENTAL PAIN November 05, 2024 6:1 3pm Chief Complaint Admit Date DENTAL PAIN November 05, 2024 6:1 3pm DIZZINESS January 20, 2025 10:5 4pm Chief Complaint Admit Date DENTAL PAIN November 05, 2024 6:1 3pm DIZZINESS January 20, 2025 10:5 4pm THRUSH January 29, 2025 9:00p m Reason for Referral Specialty Diagnoses / Procedures Referred By Adenike ferguson Referred To Contact Neurology Diagnoses Cerebral palsy, unspecified type (HCC) Procedures CONSULT TO NEUROLOGY OFFICE/OUTPATIENT [facility] 60-74 MINUTES Mathew Cobian MD [address] [place] [id number] Referral ID Status Reason Start Date Expiration Date Visits Requested Visits Authorized [id number] Authorized PCP Requested Referral 2 06/07/2023 1 1 Specialty Diagnoses / Procedures Referred By Adenike ferguson Referred To Contact Rheumatology Diagnoses HLA B27 (HLA B27 positive) Procedures CONSULT TO RHEUM/IMMUN DISEASE OFFICE/OUTPATIENT [facility] 60-74 MINUTES Mathew Cobian MD [address] [place] [address] Referral ID Status Reason Start Date Expiration Date Visits Requested Visits Authorized [id number] Authorized PCP Requested Referral 2 06/07/2023 1 1 Specialty Diagnoses / Procedures Referred By Contac t Referred To Contact Pain Management Diagnoses Chronic bilateral low back pain with right-sided sciatica Procedures CONSULT TO PAIN MGT OFFICE/OUTPATIENT [facility] 60-74 MINUTES Mathew Cobian MD [address] [place] [address] Referral ID Status Reason Start Date Expiration Date Visits Requested Visits Authorized [id number] Authorized PCP Requested Referral 03/16/2023 03/15/2024 1 1 Specialty Diagnoses / Procedures Referred By Contac t Referred To Contact Diagnoses JODEE (obstructive sleep apnea) Procedures CONSULT TO SLEEP MEDICINE - ADULT OFFICE/OUTPATIENT [facility] 60 MINUTES Gypsy Ayala APRN.CNP [address] [place] [address] Referral ID Status Reason Start Date Expiration Date Visits Requested Visits Authorized [id number] Authorized PCP Requested Referral 09/14/2023 09/13/2024 1 1 Specialty Diagnoses / Procedures Referred By Contac t Referred To Contact Ent - Otolaryngology Diagnoses Dizziness Procedures CONSULT TO ENT OFFICE/OUTPATIENT [facility] 60 MINUTES Mathew Cobian MD [address] [place] [address] Referral ID Status Reason Start Date Expiration Date Visits Requested Visits Authorized [id number] Authorized PCP Requested Referral 10/17/2023 10/16/2024 1 1 Specialty Diagnoses / Procedures Referred By Contac t Referred To Contact [facility] Diagnoses Chronic bilateral low back pain with right-sided sciatica Cerebral palsy, unspecified type (HCC) Procedures CONSULT TO PHYSICAL THERAPY PHYSICAL THERAPY EVALUATION HIGH COMPLEX 45 MINS Mathew oCbian MD [address] [place] [address] [facility] [address] [place] [address] Referral ID Status Reason Start Date Expiration Date Visits Requested Visits Authorized [id number] Authorized PCP Requested Referral Auto-Generate d Referral 10/17/2023 10/16/2024 99 99 Specialty Diagnoses / Procedures Referred By Contac t Referred To Contact Pain Management Diagnoses Chronic bilateral low back pain with right-sided sciatica Procedures CONSULT TO PAIN MGT OFFICE/OUTPATIENT [facility] 60 MINUTES Mathew Cobian MD [address] [place] [address] Referral ID Status Reason Start Date Expiration Date Visits Requested Visits Authorized [id number] Authorized PCP Requested Referral 10/17/2023 10/16/2024 1 1 Specialty Diagnoses / Procedures Referred By Contac t Referred To Contact General Surgery Diagnoses Screening for colon cancer Procedures CONSULT TO GENERAL SURGERY OFFICE/OUTPATIENT [facility] 60 MINUTES Mathew Cobian MD [address] [place] [address] Referral ID Status Reason Start Date Expiration Date Visits Requested Visits Authorized [id number] Authorized PCP Requested Referral 10/17/2023 10/16/2024 1 1 Specialty Diagnoses / Procedures Referred By Contac t Referred To Contact Neurology Diagnoses Memory changes Procedures CONSULT TO NEUROLOGY OFFICE/OUTPATIENT [facility] 60 MINUTES Gypsy Ayala 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 [address] [place] [address] Referral ID Status Reason Start Date Expiration Date Visits Requested Visits Authorized [id number] Authorized PCP Requested Referral 12/14/2023 12/13/2024 1 1 Specialty Diagnoses / Procedures Referred By Contac t Referred To Contact MR IMAGING Diagnoses Prostate cancer (HCC) Procedures MRI PROSTATE WO/W IVCON MRI PELVIS W/O & W/CONTRAST MATERIAL Raphael Calderon Jr., MD [address] [place] [address] [place] [address] Referral ID Status Reason Start Date Expiration Date Visits Requested Visits Authorized [id number] Authorized Auto-Generat ed Referral 03/12/2024 04/11/2025 1 1 Specialty Diagnoses / Procedures Referred By Contac t Referred To Contact Ent - Otolaryngology Diagnoses Dizziness and giddiness Procedures CONSULT TO ENT OFFICE/OUTPATIENT [facility] 60 MINUTES Brian Ahmadi, KALEB.PLUG MACHINE OPERATOR [address] [place] [address] Referral ID Status Reason Start Date Expiration Date Visits Requested Visits Authorized [id number] Authorized PCP Requested Referral 04/04/2024 04/04/2025 1 1 Specialty Diagnoses / Procedures Referred By Contac t Referred To Contact General Surgery Diagnoses Diverticulitis Bloody stools Procedures CONSULT TO GENERAL SURGERY OFFICE/OUTPATIENT [facility] 60 MINUTES Brian Ahmadi, MORTUARY BEAUTICIAN.PLUG MACHINE OPERATOR [address] [place] [address] Referral ID Status Reason Start Date Expiration Date Visits Requested Visits Authorized [id number] Authorized PCP Requested Referral 04/30/2024 04/30/2025 1 1 Specialty Diagnoses / Procedures Referred By Contac t Referred To Contact Neurosurgery Diagnoses Confusion Procedures CONSULT TO NEUROSURGERY OFFICE/OUTPATIENT [facility] MDM 60 MINUTES Devi Cisse MD [address] [place] [address] Referral ID Status Reason Start Date Expiration Date Visits Requested Visits Authorized [id number] Authorized PCP Requested Referral 4 06/03/2025 1 1 Specialty Diagnoses / Procedures Referred By Contac t Referred To Contact [facility] Diagnoses Confusion Procedures EPIL EEG ROUTINE ELECTROENCEPHALOGRAM REC COMA/SLEEP ONLY Devi Cisse MD [address] [place] [address] [facility] [place] [address] [place] [address] Referral ID Status Reason Start Date Expiration Date Visits Requested Visits Authorized [id number] New Request Auto-Generat ed Referral 4 06/03/2025 1 1 Additional Source Comments (unrecognized sect ion and content) No Status Records FoundNo Status Records FoundNo Status Records FoundNo Status Records FoundNo Status Records FoundNo Status Records FoundNo Status Records FoundNo Status Records Found INFORMATION SOURCE (unrecogn ized section and content) DATE CREATED AUTHOR 06/28/2019 [facility] DATE CREATED AUTHOR AUTHOR'S ORGANIZ ATION 10/08/2023 [facility] DATE CREATED AUTHOR AUTHOR'S ORGANIZ ATION 10/12/2023 [facility] DATE CREATED AUTHOR AUTHOR'S ORGANIZ ATION 05/16/2024 [facility] DATE CREATED AUTHOR AUTHOR'S ORGANIZ ATION 08/02/2024 [facility] DATE CREATED AUTHOR AUTHOR'S ORGANIZ ATION 11/02/2024 [facility] DATE CREATED AUTHOR AUTHOR'S ORGANIZ ATION 02/02/2025 [facility] DATE CREATED AUTHOR AUTHOR'S ORGANIZ ATION 04/05/2025 [facility] Source Comments (unrecognize d section and content) In the event this informatio n is protected by the Federal Confidentiality of Alcohol and Drug Abuse Patient Records regulations: The Federal rules restrict any use of the information to criminally investigate or prosecute any alcohol or drug abuse patient.[facility] the event this information is protected by the Federal Confidentiality of Alcohol and Drug Abuse Patient Records regulations: The Federal rules restrict any use of the information to criminally investigate or prosecute any alcohol or drug abuse patient.[facility] the event this information is protected by the Federal Confidentiality of Alcohol and Drug Abuse Patient Records regulations: The Federal rules restrict any use of the information to criminally investigate or prosecute any alcohol or drug abuse patient.[facility] the event this information is protected by the Federal Confidentiality of Alcohol and Drug Abuse Patient Records regulations: The Federal rules restrict any use of the information to criminally investigate or prosecute any alcohol or drug abuse patient.[facility]In the event this information is protected by the Federal Confidentiality of Alcohol and Drug Abuse Patient Records regulations: The Federal rules restrict any use of the information to criminally investigate or prosecute any alcohol or drug abuse patient.[facility] the event this information is protected by the Federal Confidentiality of Alcohol and Drug Abuse Patient Records regulations: The Federal rules restrict any use of the information to criminally investigate or prosecute any alcohol or drug abuse patient.[facility] the event this information is protected by the Federal Confidentiality of Alcohol and Drug Abuse Patient Records regulations: The Federal rules restrict any use of the information to criminally investigate or prosecute any alcohol or drug abuse patient.[facility] the event this information is protected by the Federal Confidentiality of Alcohol and Drug Abuse Patient Records regulations: The Federal rules restrict any use of the information to criminally investigate or prosecute any alcohol or drug abuse patient.[facility]In the event this information is protected by the Federal Confidentiality of Alcohol and Drug Abuse Patient Records regulations: The Federal rules restrict any use of the information to criminally investigate or prosecute any alcohol or drug abuse patient.[facility]In the event this information is protected by the Federal Confidentiality of Alcohol and Drug Abuse Patient Records regulations: The Federal rules restrict any use of the information to criminally investigate or prosecute any alcohol or drug abuse patient.[facility]In the event this information is protected by the Federal Confidentiality of Alcohol and Drug Abuse Patient Records regulations: The Federal rules restrict any use of the information to criminally investigate or prosecute any alcohol or drug abuse patient.[facility]In the event this information is protected by the Federal Confidentiality of Alcohol and Drug Abuse Patient Records regulations: The Federal rules restrict any use of the information to criminally investigate or prosecute any alcohol or drug abuse patient.[facility]In the event this information is protected by the Federal Confidentiality of Alcohol and Drug Abuse Patient Records regulations: The Federal rules restrict any use of the information to criminally investigate or prosecute any alcohol or drug abuse patient.[facility]In the event this information is protected by the Federal Confidentiality of Alcohol and Drug Abuse Patient Records regulations: The Federal rules restrict any use of the information to criminally investigate or prosecute any alcohol or drug abuse patient.[facility]In the event this information is protected by the Federal Confidentiality of Alcohol and Drug Abuse Patient Records regulations: The Federal rules restrict any use of the information to criminally investigate or prosecute any alcohol or drug abuse patient.[facility]In the event this information is protected by the Federal Confidentiality of Alcohol and Drug Abuse Patient Records regulations: The Federal rules restrict any use of the information to criminally investigate or prosecute any alcohol or drug abuse patient.[facility] HospitalIn the event this information is protected by the Federal Confidentiality of Alcohol and Drug Abuse Patient Records regulations: The Federal rules restrict any use of the information to criminally investigate or prosecute any alcohol or drug abuse patient.[facility] HospitalIn the event this information is protected by the Federal Confidentiality of Alcohol and Drug Abuse Patient Records regulations: The Federal rules restrict any use of the information to criminally investigate or prosecute any alcohol or drug abuse patient.[facility]In the event this information is protected by the Federal Confidentiality of Alcohol and Drug Abuse Patient Records regulations: The Federal rules restrict any use of the information to criminally investigate or prosecute any alcohol or drug abuse patient.[facility] HospitalIn the event this information is protected by the Federal Confidentiality of Alcohol and Drug Abuse Patient Records regulations: The Federal rules restrict any use of the information to criminally investigate or prosecute any alcohol or drug abuse patient.[facility] HospitalIn the event this information is protected by the Federal Confidentiality of Alcohol and Drug Abuse Patient Records regulations: The Federal rules restrict any use of the information to criminally investigate or prosecute any alcohol or drug abuse patient.[facility] HospitalIn the event this information is protected by the Federal Confidentiality of Alcohol and Drug Abuse Patient Records regulations: The Federal rules restrict any use of the information to criminally investigate or prosecute any alcohol or drug abuse patient.[facility] HospitalIn the event this information is protected by the Federal Confidentiality of Alcohol and Drug Abuse Patient Records regulations: The Federal rules restrict any use of the information to criminally investigate or prosecute any alcohol or drug abuse patient.[facility] HospitalIn the event this information is protected by the Federal Confidentiality of Alcohol and Drug Abuse Patient Records regulations: The Federal rules restrict any use of the information to criminally investigate or prosecute any alcohol or drug abuse patient.[facility] HospitalIn the event this information is protected by the Federal Confidentiality of Alcohol and Drug Abuse Patient Records regulations: The Federal rules restrict any use of the information to criminally investigate or prosecute any alcohol or drug abuse patient.[facility] HospitalIn the event this information is protected by the Federal Confidentiality of Alcohol and Drug Abuse Patient Records regulations: The Federal rules restrict any use of the information to criminally investigate or prosecute any alcohol or drug abuse patient.[facility] HospitalIn the event this information is protected by the Federal Confidentiality of Alcohol and Drug Abuse Patient Records regulations: The Federal rules restrict any use of the information to criminally investigate or prosecute any alcohol or drug abuse patient.[facility] HospitalIn the event this information is protected by the Federal Confidentiality of Alcohol and Drug Abuse Patient Records regulations: The Federal rules restrict any use of the information to criminally investigate or prosecute any alcohol or drug abuse patient.[facility] HospitalIn the event this information is protected by the Federal Confidentiality of Alcohol and Drug Abuse Patient Records regulations: The Federal rules restrict any use of the information to criminally investigate or prosecute any alcohol or drug abuse patient.[facility] HospitalIn the event this information is protected by the Federal Confidentiality of Alcohol and Drug Abuse Patient Records regulations: The Federal rules restrict any use of the information to criminally investigate or prosecute any alcohol or drug abuse patient.[facility] HospitalIn the event this information is protected by the Federal Confidentiality of Alcohol and Drug Abuse Patient Records regulations: The Federal rules restrict any use of the information to criminally investigate or prosecute any alcohol or drug abuse patient.[facility] HospitalIn the event this information is protected by the Federal Confidentiality of Alcohol and Drug Abuse Patient Records regulations: The Federal rules restrict any use of the information to criminally investigate or prosecute any alcohol or drug abuse patient.[facility] HospitalIn the event this information is protected by the Federal Confidentiality of Alcohol and Drug Abuse Patient Records regulations: The Federal rules restrict any use of the information to criminally investigate or prosecute any alcohol or drug abuse patient.[facility] HospitalIn the event this information is protected by the Federal Confidentiality of Alcohol and Drug Abuse Patient Records regulations: The Federal rules restrict any use of the information to criminally investigate or prosecute any alcohol or drug abuse patient.[facility] the event this information is protected by the Federal Confidentiality of Alcohol and Drug Abuse Patient Records regulations: The Federal rules restrict any use of the information to criminally investigate or prosecute any alcohol or drug abuse patient.[facility] HospitalIn the event this information is protected by the Federal Confidentiality of Alcohol and Drug Abuse Patient Records regulations: The Federal rules restrict any use of the information to criminally investigate or prosecute any alcohol or drug abuse patient.[facility] HospitalIn the event this information is protected by the Federal Confidentiality of Alcohol and Drug Abuse Patient Records regulations: The Federal rules restrict any use of the information to criminally investigate or prosecute any alcohol or drug abuse patient.[facility] the event this information is protected by the Federal Confidentiality of Alcohol and Drug Abuse Patient Records regulations: The Federal rules restrict any use of the information to criminally investigate or prosecute any alcohol or drug abuse patient.[facility] HospitalIn the event this information is protected by the Federal Confidentiality of Alcohol and Drug Abuse Patient Records regulations: The Federal rules restrict any use of the information to criminally investigate or prosecute any alcohol or drug abuse patient.[facility] HospitalIn the event this information is protected by the Federal Confidentiality of Alcohol and Drug Abuse Patient Records regulations: The Federal rules restrict any use of the information to criminally investigate or prosecute any alcohol or drug abuse patient.[facility] HospitalIn the event this information is protected by the Federal Confidentiality of Alcohol and Drug Abuse Patient Records regulations: The Federal rules restrict any use of the information to criminally investigate or prosecute any alcohol or drug abuse patient.[facility] HospitalIn the event this information is protected by the Federal Confidentiality of Alcohol and Drug Abuse Patient Records regulations: The Federal rules restrict any use of the information to criminally investigate or prosecute any alcohol or drug abuse patient.[facility] HospitalIn the event this information is protected by the Federal Confidentiality of Alcohol and Drug Abuse Patient Records regulations: The Federal rules restrict any use of the information to criminally investigate or prosecute any alcohol or drug abuse patient.[facility] HospitalIn the event this information is protected by the Federal Confidentiality of Alcohol and Drug Abuse Patient Records regulations: The Federal rules restrict any use of the information to criminally investigate or prosecute any alcohol or drug abuse patient.[facility] HospitalIn the event this information is protected by the Federal Confidentiality of Alcohol and Drug Abuse Patient Records regulations: The Federal rules restrict any use of the information to criminally investigate or prosecute any alcohol or drug abuse patient.[facility] HospitalIn the event this information is protected by the Federal Confidentiality of Alcohol and Drug Abuse Patient Records regulations: The Federal rules restrict any use of the information to criminally investigate or prosecute any alcohol or drug abuse patient.[facility] HospitalIn the event this information is protected by the Federal Confidentiality of Alcohol and Drug Abuse Patient Records regulations: The Federal rules restrict any use of the information to criminally investigate or prosecute any alcohol or drug abuse patient.[facility] HospitalIn the event this information is protected by the Federal Confidentiality of Alcohol and Drug Abuse Patient Records regulations: The Federal rules restrict any use of the information to criminally investigate or prosecute any alcohol or drug abuse patient.[facility] HospitalIn the event this information is protected by the Federal Confidentiality of Alcohol and Drug Abuse Patient Records regulations: The Federal rules restrict any use of the information to criminally investigate or prosecute any alcohol or drug abuse patient.[facility] HospitalIn the event this information is protected by the Federal Confidentiality of Alcohol and Drug Abuse Patient Records regulations: The Federal rules restrict any use of the information to criminally investigate or prosecute any alcohol or drug abuse patient.[facility] HospitalIn the event this information is protected by the Federal Confidentiality of Alcohol and Drug Abuse Patient Records regulations: The Federal rules restrict any use of the information to criminally investigate or prosecute any alcohol or drug abuse patient.[facility] HospitalIn the event this information is protected by the Federal Confidentiality of Alcohol and Drug Abuse Patient Records regulations: The Federal rules restrict any use of the information to criminally investigate or prosecute any alcohol or drug abuse patient.[facility] HospitalIn the event this information is protected by the Federal Confidentiality of Alcohol and Drug Abuse Patient Records regulations: The Federal rules restrict any use of the information to criminally investigate or prosecute any alcohol or drug abuse patient.[facility] HospitalIn the event this information is protected by the Federal Confidentiality of Alcohol and Drug Abuse Patient Records regulations: The Federal rules restrict any use of the information to criminally investigate or prosecute any alcohol or drug abuse patient.[facility] HospitalIn the event this information is protected by the Federal Confidentiality of Alcohol and Drug Abuse Patient Records regulations: The Federal rules restrict any use of the information to criminally investigate or prosecute any alcohol or drug abuse patient.[facility] HospitalIn the event this information is protected by the Federal Confidentiality of Alcohol and Drug Abuse Patient Records regulations: The Federal rules restrict any use of the information to criminally investigate or prosecute any alcohol or drug abuse patient.[facility] HospitalIn the event this information is protected by the Federal Confidentiality of Alcohol and Drug Abuse Patient Records regulations: The Federal rules restrict any use of the information to criminally investigate or prosecute any alcohol or drug abuse patient.[facility] HospitalIn the event this information is protected by the Federal Confidentiality of Alcohol and Drug Abuse Patient Records regulations: The Federal rules restrict any use of the information to criminally investigate or prosecute any alcohol or drug abuse patient.[facility] HospitalIn the event this information is protected by the Federal Confidentiality of Alcohol and Drug Abuse Patient Records regulations: The Federal rules restrict any use of the information to criminally investigate or prosecute any alcohol or drug abuse patient.[facility] HospitalIn the event this information is protected by the Federal Confidentiality of Alcohol and Drug Abuse Patient Records regulations: The Federal rules restrict any use of the information to criminally investigate or prosecute any alcohol or drug abuse patient.[facility] HospitalIn the event this information is protected by the Federal Confidentiality of Alcohol and Drug Abuse Patient Records regulations: The Federal rules restrict any use of the information to criminally investigate or prosecute any alcohol or drug abuse patient.[facility] HospitalIn the event this information is protected by the Federal Confidentiality of Alcohol and Drug Abuse Patient Records regulations: The Federal rules restrict any use of the information to criminally investigate or prosecute any alcohol or drug abuse patient.[facility] HospitalIn the event this information is protected by the Federal Confidentiality of Alcohol and Drug Abuse Patient Records regulations: The Federal rules restrict any use of the information to criminally investigate or prosecute any alcohol or drug abuse patient.[facility] HospitalIn the event this information is protected by the Federal Confidentiality of Alcohol and Drug Abuse Patient Records regulations: The Federal rules restrict any use of the information to criminally investigate or prosecute any alcohol or drug abuse patient.[facility] HospitalIn the event this information is protected by the Federal Confidentiality of Alcohol and Drug Abuse Patient Records regulations: The Federal rules restrict any use of the information to criminally investigate or prosecute any alcohol or drug abuse patient.[facility] HospitalIn the event this information is protected by the Federal Confidentiality of Alcohol and Drug Abuse Patient Records regulations: The Federal rules restrict any use of the information to criminally investigate or prosecute any alcohol or drug abuse patient.[facility] HospitalIn the event this information is protected by the Federal Confidentiality of Alcohol and Drug Abuse Patient Records regulations: The Federal rules restrict any use of the information to criminally investigate or prosecute any alcohol or drug abuse patient.[facility] HospitalIn the event this information is protected by the Federal Confidentiality of Alcohol and Drug Abuse Patient Records regulations: The Federal rules restrict any use of the information to criminally investigate or prosecute any alcohol or drug abuse patient.[facility] HospitalIn the event this information is protected by the Federal Confidentiality of Alcohol and Drug Abuse Patient Records regulations: The Federal rules restrict any use of the information to criminally investigate or prosecute any alcohol or drug abuse patient.[facility] HospitalIn the event this information is protected by the Federal Confidentiality of Alcohol and Drug Abuse Patient Records regulations: The Federal rules restrict any use of the information to criminally investigate or prosecute any alcohol or drug abuse patient.[facility] HospitalIn the event this information is protected by the Federal Confidentiality of Alcohol and Drug Abuse Patient Records regulations: The Federal rules restrict any use of the information to criminally investigate or prosecute any alcohol or drug abuse patient.[facility] HospitalIn the event this information is protected by the Federal Confidentiality of Alcohol and Drug Abuse Patient Records regulations: The Federal rules restrict any use of the information to criminally investigate or prosecute any alcohol or drug abuse patient.[facility] HospitalIn the event this information is protected by the Federal Confidentiality of Alcohol and Drug Abuse Patient Records regulations: The Federal rules restrict any use of the information to criminally investigate or prosecute any alcohol or drug abuse patient.[facility] HospitalIn the event this information is protected by the Federal Confidentiality of Alcohol and Drug Abuse Patient Records regulations: The Federal rules restrict any use of the information to criminally investigate or prosecute any alcohol or drug abuse patient.[facility] HospitalIn the event this information is protected by the Federal Confidentiality of Alcohol and Drug Abuse Patient Records regulations: The Federal rules restrict any use of the information to criminally investigate or prosecute any alcohol or drug abuse patient.[facility] HospitalIn the event this information is protected by the Federal Confidentiality of Alcohol and Drug Abuse Patient Records regulations: The Federal rules restrict any use of the information to criminally investigate or prosecute any alcohol or drug abuse patient.[facility] HospitalIn the event this information is protected by the Federal Confidentiality of Alcohol and Drug Abuse Patient Records regulations: The Federal rules restrict any use of the information to criminally investigate or prosecute any alcohol or drug abuse patient.[facility] HospitalIn the event this information is protected by the Federal Confidentiality of Alcohol and Drug Abuse Patient Records regulations: The Federal rules restrict any use of the information to criminally investigate or prosecute any alcohol or drug abuse patient.[facility] HospitalIn the event this information is protected by the Federal Confidentiality of Alcohol and Drug Abuse Patient Records regulations: The Federal rules restrict any use of the information to criminally investigate or prosecute any alcohol or drug abuse patient.[facility] HospitalIn the event this information is protected by the Federal Confidentiality of Alcohol and Drug Abuse Patient Records regulations: The Federal rules restrict any use of the information to criminally investigate or prosecute any alcohol or drug abuse patient.[facility] HospitalIn the event this information is protected by the Federal Confidentiality of Alcohol and Drug Abuse Patient Records regulations: The Federal rules restrict any use of the information to criminally investigate or prosecute any alcohol or drug abuse patient.[facility] HospitalIn the event this information is protected by the Federal Confidentiality of Alcohol and Drug Abuse Patient Records regulations: The Federal rules restrict any use of the information to criminally investigate or prosecute any alcohol or drug abuse patient.[facility] HospitalIn the event this information is protected by the Federal Confidentiality of Alcohol and Drug Abuse Patient Records regulations: The Federal rules restrict any use of the information to criminally investigate or prosecute any alcohol or drug abuse patient.[facility] HospitalIn the event this information is protected by the Federal Confidentiality of Alcohol and Drug Abuse Patient Records regulations: The Federal rules restrict any use of the information to criminally investigate or prosecute any alcohol or drug abuse patient.[facility] the event this information is protected by the Federal Confidentiality of Alcohol and Drug Abuse Patient Records regulations: The Federal rules restrict any use of the information to criminally investigate or prosecute any alcohol or drug abuse patient.[facility] HospitalIn the event this information is protected by the Federal Confidentiality of Alcohol and Drug Abuse Patient Records regulations: The Federal rules restrict any use of the information to criminally investigate or prosecute any alcohol or drug abuse patient.[facility] HospitalIn the event this information is protected by the Federal Confidentiality of Alcohol and Drug Abuse Patient Records regulations: The Federal rules restrict any use of the information to criminally investigate or prosecute any alcohol or drug abuse patient.[facility]In the event this information is protected by the Federal Confidentiality of Alcohol and Drug Abuse Patient Records regulations: The Federal rules restrict any use of the information to criminally investigate or prosecute any alcohol or drug abuse patient.[facility] HospitalIn the event this information is protected by the Federal Confidentiality of Alcohol and Drug Abuse Patient Records regulations: The Federal rules restrict any use of the information to criminally investigate or prosecute any alcohol or drug abuse patient.[facility] HospitalIn the event this information is protected by the Federal Confidentiality of Alcohol and Drug Abuse Patient Records regulations: The Federal rules restrict any use of the information to criminally investigate or prosecute any alcohol or drug abuse patient.[facility] HospitalIn the event this information is protected by the Federal Confidentiality of Alcohol and Drug Abuse Patient Records regulations: The Federal rules restrict any use of the information to criminally investigate or prosecute any alcohol or drug abuse patient.[facility] HospitalIn the event this information is protected by the Federal Confidentiality of Alcohol and Drug Abuse Patient Records regulations: The Federal rules restrict any use of the information to criminally investigate or prosecute any alcohol or drug abuse patient.[facility] HospitalIn the event this information is protected by the Federal Confidentiality of Alcohol and Drug Abuse Patient Records regulations: The Federal rules restrict any use of the information to criminally investigate or prosecute any alcohol or drug abuse patient.[facility] HospitalIn the event this information is protected by the Federal Confidentiality of Alcohol and Drug Abuse Patient Records regulations: The Federal rules restrict any use of the information to criminally investigate or prosecute any alcohol or drug abuse patient.[facility] HospitalIn the event this information is protected by the Federal Confidentiality of Alcohol and Drug Abuse Patient Records regulations: The Federal rules restrict any use of the information to criminally investigate or prosecute any alcohol or drug abuse patient.[facility] HospitalIn the event this information is protected by the Federal Confidentiality of Alcohol and Drug Abuse Patient Records regulations: The Federal rules restrict any use of the information to criminally investigate or prosecute any alcohol or drug abuse patient.[facility] HospitalIn the event this information is protected by the Federal Confidentiality of Alcohol and Drug Abuse Patient Records regulations: The Federal rules restrict any use of the information to criminally investigate or prosecute any alcohol or drug abuse patient.[facility] HospitalIn the event this information is protected by the Federal Confidentiality of Alcohol and Drug Abuse Patient Records regulations: The Federal rules restrict any use of the information to criminally investigate or prosecute any alcohol or drug abuse patient.[facility] HospitalIn the event this information is protected by the Federal Confidentiality of Alcohol and Drug Abuse Patient Records regulations: The Federal rules restrict any use of the information to criminally investigate or prosecute any alcohol or drug abuse patient.[facility] HospitalIn the event this information is protected by the Federal Confidentiality of Alcohol and Drug Abuse Patient Records regulations: The Federal rules restrict any use of the information to criminally investigate or prosecute any alcohol or drug abuse patient.[facility] HospitalIn the event this information is protected by the Federal Confidentiality of Alcohol and Drug Abuse Patient Records regulations: The Federal rules restrict any use of the information to criminally investigate or prosecute any alcohol or drug abuse patient.[facility] HospitalIn the event this information is protected by the Federal Confidentiality of Alcohol and Drug Abuse Patient Records regulations: The Federal rules restrict any use of the information to criminally investigate or prosecute any alcohol or drug abuse patient.[facility] HospitalIn the event this information is protected by the Federal Confidentiality of Alcohol and Drug Abuse Patient Records regulations: The Federal rules restrict any use of the information to criminally investigate or prosecute any alcohol or drug abuse patient.[facility] HospitalIn the event this information is protected by the Federal Confidentiality of Alcohol and Drug Abuse Patient Records regulations: The Federal rules restrict any use of the information to criminally investigate or prosecute any alcohol or drug abuse patient.[facility] HospitalIn the event this information is protected by the Federal Confidentiality of Alcohol and Drug Abuse Patient Records regulations: The Federal rules restrict any use of the information to criminally investigate or prosecute any alcohol or drug abuse patient.[facility] HospitalIn the event this information is protected by the Federal Confidentiality of Alcohol and Drug Abuse Patient Records regulations: The Federal rules restrict any use of the information to criminally investigate or prosecute any alcohol or drug abuse patient.[facility] HospitalIn the event this information is protected by the Federal Confidentiality of Alcohol and Drug Abuse Patient Records regulations: The Federal rules restrict any use of the information to criminally investigate or prosecute any alcohol or drug abuse patient.[facility] HospitalIn the event this information is protected by the Federal Confidentiality of Alcohol and Drug Abuse Patient Records regulations: The Federal rules restrict any use of the information to criminally investigate or prosecute any alcohol or drug abuse patient.[facility] HospitalIn the event this information is protected by the Federal Confidentiality of Alcohol and Drug Abuse Patient Records regulations: The Federal rules restrict any use of the information to criminally investigate or prosecute any alcohol or drug abuse patient.[facility] HospitalIn the event this information is protected by the Federal Confidentiality of Alcohol and Drug Abuse Patient Records regulations: The Federal rules restrict any use of the information to criminally investigate or prosecute any alcohol or drug abuse patient.[facility] HospitalIn the event this information is protected by the Federal Confidentiality of Alcohol and Drug Abuse Patient Records regulations: The Federal rules restrict any use of the information to criminally investigate or prosecute any alcohol or drug abuse patient.[facility] HospitalIn the event this information is protected by the Federal Confidentiality of Alcohol and Drug Abuse Patient Records regulations: The Federal rules restrict any use of the information to criminally investigate or prosecute any alcohol or drug abuse patient.[facility] HospitalIn the event this information is protected by the Federal Confidentiality of Alcohol and Drug Abuse Patient Records regulations: The Federal rules restrict any use of the information to criminally investigate or prosecute any alcohol or drug abuse patient.[facility] HospitalIn the event this information is protected by the Federal Confidentiality of Alcohol and Drug Abuse Patient Records regulations: The Federal rules restrict any use of the information to criminally investigate or prosecute any alcohol or drug abuse patient.[facility] HospitalIn the event this information is protected by the Federal Confidentiality of Alcohol and Drug Abuse Patient Records regulations: The Federal rules restrict any use of the information to criminally investigate or prosecute any alcohol or drug abuse patient.[facility] Reason for Visit (unrecogniz ed section and content) Reason Comments Consult Specialty Diagnoses / Procedures Referred By Adenike ferguson Referred To Contact General Surgery Diagnoses Diverticulitis Bloody stools Procedures CONSULT TO GENERAL SURGERY OFFICE/OUTPATIENT [facility] 60 MINUTES Brian Ahmadi 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 [address] [place] [address] Referral ID Status Reason Start Date Expiration Date V isits Requested Visits Authorized [id number] Closed PCP Requested Referral 04/30/2024 04/30/2025 1 [...] Dizziness Specialty Diagnoses / Procedures Referred By Adenike ferguson Referred To Contact Diagnoses Stroke Level A Head Bleed/Stroke [facility] [address] [place] [address] [facility] [address] [place] [address] Referral ID Status Reason Start Date Expiration Date Visits Re quested Visits Authorized [id number] 1 1 Reason Comments Patient Update FYI-No [...] BILATERAL WITH PELVIS MINIMUM 5 VIEWS Gerardo Lopez, KEILA [address] [place] [place] [id number] [place] [address] Referral ID Status Reason Start Date Expiration Date V isits Requested Visits Authorized [id number] Closed Auto-Generate d Referral 03/15/2021 04/14/2022 1 1 Reason Comments ER F/U [facility] ER diverticuliti s 04/23/2024 Reason Onset Date Comments Transition Of Care 05/14/2024 TCM Initial H ospital Discharge [facility] 05/13/24 Reason Comments Trauma Fell on tread mill, and hit shins and hav wounds on bilat ankles, x 20 mins Reason Comments Appointment Reason Comments Referral Request Reason Comments New Patient Reason Comments Forms Apt modification for m Reason Comments Follow Up 3 month Reason Comments [facility] ER f/u Reason Comments Hospital Follow Up [...] Comments Follow Up Reason Comments Rectal Problem Reason Comments Sore Throat swollen tongue x 1 d ay Reason Comments Sore Throat sore tongue Reason Onset Date Comments Refill Request 02/11/2025 Reason Onset Date Comments Refill Request 03/13/2025 Reason Comments CPAP order Reason Comments Shortness of Breath Reason Comments Breathing Problem Care Teams (unrecognized sec tion and content) Quarantine Officer Relationship Specialty Start Date End Date Mathew Cobian MD [address] [place] [address] PCP - General 09/22/08 Quarantine Officer Relationship Specialty Start Date End Date Mathew Cobian MD [address] [place] [address] PCP - General 09/22/08 Quarantine Officer Relationship Specialty Start Date End Date Mathew Cobian MD [address] [place] [address] PCP - General 09/22/08 Quarantine Officer Relationship Specialty Start Date End Date Mathew Cobian MD [address] [facility] [place] [address] PCP - General 09/22/08 Quarantine Officer Relationship Specialty Start Date End Date Mathew Cobian MD [address] [facility] [place] [address] PCP - General 09/22/08 Quarantine Officer Relationship Specialty Start Date End Date Mathew Cobian MD [address] [facility] [place] [address] PCP - General 09/22/08 Quarantine Officer Relationship Specialty Start Date End Date Mathew Cobian MD [address] [facility] [place] [address] PCP - General 09/22/08 Quarantine Officer Relationship Specialty Start Date End Date Mathew Cobian MD [address] [place] [address] PCP - General 09/22/08 Quarantine Officer Relationship Specialty Start Date End Date Mathew Cobian MD [address] [place] [address] PCP - General 09/22/08 Quarantine Officer Relationship Specialty Start Date End Date Mathew Cobian MD [address] [place] [address] PCP - General 09/22/08 Quarantine Officer Relationship Specialty Start Date End Date Mathew Cobian MD [address] [place] [address], [place] [address] PCP - General 09/22/08 Quarantine Officer Relationship Specialty Start Date End Date Mathew Cobian MD [facility] [place] [address] PCP - General 09/22/08 Quarantine Officer Relationship Specialty Start Date End Date Mathew Cobian MD [address] [place] [address] PCP - General 09/22/08 Quarantine Officer Relationship Specialty Start Date End Date Mathew Cobian MD [facility] [place] [address] PCP - General 09/22/08 Quarantine Officer Relationship Specialty Start Date End Date Mathew Cobian MD [address] [place] [address] PCP - General 09/22/08 Team Status: Active Member Role Status Dates Dr. Mathew Cobian MD Family Provider Active Dr. Mathew Cobian MD Primary Care Provider Active Team Status: Inactive Member Role Status Dates Dr. Mathew Cobian MD Primary Care Pr ovider, Attending Provider, Referring Provider Active Quarantine Officer Relationship Specialty Start Date End Date Mathew Cobian MD [address] [place] [address] PCP - General 09/22/08 Quarantine Officer Relationship Specialty Start Date End Date Mathew Cobian MD [address] [place] [address] PCP - General 09/22/08 Quarantine Officer Relationship Specialty Start Date End Date Mathew Cobian MD [address] [place] [address] PCP - General 09/22/08 Quarantine Officer Relationship Specialty Start Date End Date Mathew Cobian MD [address] [place] [address] PCP - General 09/22/08 Quarantine Officer Relationship Specialty Start Date End Date Mathew Cobian MD [address] [place] [address] PCP - General 09/22/08 Quarantine Officer Relationship Specialty Start Date End Date Mathew Cobian MD [address] [place] [address] PCP - General 09/22/08 Quarantine Officer Relationship Specialty Start Date End Date Mathew Cobian MD [address] [place] [address] PCP - General 09/22/08 Quarantine Officer Relationship Specialty Start Date End Date Mathew Cobian MD [address] [place] [address] PCP - General 09/22/08 Quarantine Officer Relationship Specialty Start Date End Date Mathew Cobian MD [address] [place] [address] PCP - General 09/22/08 Quarantine Officer Relationship Specialty Start Date End Date Mathew Cobian MD [address] [place] [address] PCP - General Family Medicine 09/26/23 Quarantine Officer Relationship Specialty Start Date End Date Mathew Cobian MD [address] [place] [address] PCP - General 09/22/08 Quarantine Officer Relationship Specialty Start Date End Date Mathew Cobian MD [address] [place] [address] PCP - General 09/22/08 Quarantine Officer Relationship Specialty Start Date End Date Mathew Cobian MD [address] [place] [address] PCP - General 09/22/08 Quarantine Officer Relationship Specialty Start Date End Date Mathew Cobian MD [address] [place] [address] PCP - General 09/22/08 Quarantine Officer Relationship Specialty Start Date End Date Mathew Cobian MD [address] [place] [address] PCP - General 09/22/08 Quarantine Officer Relationship Specialty Start Date End Date Mathew Cobian MD [address] [place] [address] PCP - General 09/22/08 Quarantine Officer Relationship Specialty Start Date End Date Mathew Cobian MD [address] [place] [address] PCP - General 09/22/08 Quarantine Officer Relationship Specialty Start Date End Date Mathew Cobian MD [address] [place] [address] PCP - General 09/22/08 Quarantine Officer Relationship Specialty Start Date End Date Mathew Cobian MD [address] [place] [address] PCP - General 09/22/08 Quarantine Officer Relationship Specialty Start Date End Date Mathew Cobian MD [address] [place] [address] PCP - General 09/22/08 Quarantine Officer Relationship Specialty Start Date End Date Mathew Cobian MD [address] [place] [address] PCP - General 09/22/08 Quarantine Officer Relationship Specialty Start Date End Date Mathew Cobian MD [address] [place] [address] PCP - General 09/22/08 Quarantine Officer Relationship Specialty Start Date End Date Mathew Cobian MD [address] [place] [address] PCP - General 09/22/08 Quarantine Officer Relationship Specialty Start Date End Date Mathew Cobian MD [address] [place] [address] PCP - General 09/22/08 Quarantine Officer Relationship Specialty Start Date End Date Mathew Cobian MD [address] [place] [address] PCP - General 09/22/08 Quarantine Officer Relationship Specialty Start Date End Date Mathew Cobian MD [address] [place] [address] PCP - General 09/22/08 Sp Dahl RN [address] [place], [place] [id number] Primary Care Gizzard Peeler 05/14/24 05/14/24 Quarantine Officer Relationship Specialty Start Date End Date Mathew Cobian MD [address] [place] [address] PCP - General 09/22/08 Quarantine Officer Relationship Specialty Start Date End Date Mathew Cobian MD [address] [place] [address] PCP - General 09/22/08 Gypsy Ayala, KALEB.PLUG MACHINE OPERATOR [address] [place] [address] Child Psychometrist Family Medicine 06/30/24 Brian Ahmadi 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 [address] [place] [address] Child Psychometrist Family Medicine 07/09/24 Quarantine Officer Relationship Specialty Start Date End Date Mathew Cobian MD [address] [place] [address] PCP - General 09/22/08 Gypsy Ayala 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 [address] [place] [address] Child Psychometrist Family Medicine 06/30/24 Brian Ahmadi 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 [address] [place] [address] Child Psychometrist Family Medicine 07/09/24 Quarantine Officer Relationship Specialty Start Date End Date Mathew Cobian MD [address] [place] [address] PCP - General 09/22/08 Gypsy Ayala 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 [address] [place] [address] Child Psychometrist Family Medicine 06/30/24 Brian Ahmadi 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 [address] [place] [address] Child Psychometrist [facility] 07/09/24 Quarantine Officer Relationship Specialty Start Date End Date Mathew Cobian MD [address] [place] [address] PCP - General 09/22/08 Gypsy Ayala 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 [address] [place] [address] Child Psychometrist Family Medicine 06/30/24 Brian Ahmadi 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 [address] [place] [address] Child Psychometrist Family Medicine 07/09/24 Quarantine Officer Relationship Specialty Start Date End Date Mathew Cobian MD [address] [place] [address] PCP - General 09/22/08 Gypsy Ayala 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 [address] [facility] [place] [address] Child Psychometrist Family Medicine 06/30/24 Brian Ahmadi 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 [address] [place] [address] Child Psychometrist Family Medicine 07/09/24 Quarantine Officer Relationship Specialty Start Date End Date Mathew Cobian MD [address] [place] [address] PCP - General 09/22/08 Gypsy Ayala 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 [address] [place] [address] Child Psychometrist Family Medicine 06/30/24 Brian Ahmadi 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 [address] [place] [address] [facility] Quarantine Officer Relationship Specialty Start Date End Date Mathew Cobian MD [address] [place] [address] PCP - General 09/22/08 Gypsy Ayala 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 [address] [place] [address] Child Psychometrist Family Medicine 06/30/24 Brian Ahmadi 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 [address] [place] [address] [facility] Quarantine Officer Relationship Specialty Start Date End Date Mathew Cobian MD [address] [place] [address] PCP - General 09/22/08 Gypsy Ayala 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 [address] [place] [address] [facility] Brian Ahmadi 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 [address] [place] [address] [facility] 07/09/24 Quarantine Officer Relationship Specialty Start Date End Date Mathew Cobian MD [address] [place] [address] PCP - General 09/22/08 Gypsy Ayala 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 [address] [place] [address] [facility]24 Brian Ahmadi 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 [address] [place] [address] [facility] 07/09/24 Quarantine Officer Relationship Specialty Start Date End Date Mathew Cobian MD [address] [place] [address] PCP - General 09/22/08 Gypsy Ayala 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 [address] [place] [address] [facility] 06/30/24 Brian Ahmadi 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 [address] [place] [address] [facility] Quarantine Officer Relationship Specialty Start Date End Date Mathew Cobian MD [address] [place] [address] PCP - General 09/22/08 Gypsy Ayala 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 [address] [place] [address] Child Psychometrist [facility] 06/30/24 Brian Ahmadi 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 [address] [place] [address] [facility] Quarantine Officer Relationship Specialty Start Date End Date Mathew Cobian MD [address] [place] [address] PCP - General 09/22/08 Gypsy Ayala 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 [address] [place] [address] [facility]24 Brian Ahmadi 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 [address] [place] [address] [facility] Team Status: Active Member Role Status [...] November 05, 2024 End: November 05, 2024 Quarantine Officer Relationship Specialty Start Date End Date Mathew Cobian MD [address] [place] [address] PCP - General 09/22/08 Brian Ahmadi 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 [address] [place] [address] Child Psychometrist [facility] Medicine 07/09/24 Quarantine Officer Relationship Specialty Start Date End Date Mathew Cobian MD [address] [place] [address] PCP - General 09/22/08 Brian Ahmadi, MORTUARY BEAUTICIAN.PLUG MACHINE OPERATOR [address] [place] [address] Child Psychometrist Family Medicine 07/09/24 Quarantine Officer Relationship Specialty Start Date End Date Mathew Cobian MD [address] [place] [address] PCP - General 09/22/08 Brian Ahmadi, MORTUARY BEAUTICIAN.PLUG MACHINE OPERATOR [address] [place] [address] Child Psychometrist [facility] Medicine 07/09/24 Quarantine Officer Relationship Specialty Start Date End Date Mathew Cobian MD [address] [place] [address] PCP - General 09/22/08 Brian Ahmadi, MORTUARY BEAUTICIAN.PLUG MACHINE OPERATOR [address] [place] [address] [facility] Quarantine Officer Relationship Specialty Start Date End Date Mathew Cobian MD [address] [place] [address] PCP - General 09/22/08 Brian Ahmadi MORTUARY BEAUTICIAN.PLUG MACHINE OPERATOR [address] [place] [address] [facility] Quarantine Officer Relationship Specialty Start Date End Date Mathew Cobian MD [address] [place] [address] PCP General 09/22/08 Brian Ahmadi, MORTUARY BEAUTICIAN.PLUG MACHINE OPERATOR [address] [place] [address] [facility] Quarantine Officer Relationship Specialty Start Date End Date Mathew Cobian MD [address] [place] [address] PCP General 09/22/08 Brian Ahmadi, MORTUARY BEAUTICIAN.PLUG MACHINE OPERATOR [address] [place] [address] [facility] 07/09/24 Team Status: Active Member Role/Relationship Status Dates Dr. Mathew Cobian MD Primary Care Provider Active Team Status: Inactive Member Role/Relationship Status Dates Dr. Mathew Cobian MD Primary Care Provider Active Start: November 05, 2024 End: November 05, 2024 Salvatore Watkins MD Attending Provider Active Star t: November 05, 2024 End: November 05, 2024 Salvatore Watkins MD Emergency Provider Active Star t: November 05, 2024 End: November 05, 2024 Team Status: Inactive Member Role/Relationship Status Dates Dr. Mathew Cobian MD Primary Care Provider Active Start: January 20, 2025 End: January 21, 2025 Dr. Jj Koch DO Emergency Provider Active Start: January 20, 2025 End: January 21, 2025 Quarantine Officer Relationship Specialty Start Date End Date Mathew Cobian MD [address] [place] [address] PCP - General 09/22/08 Brian Ahmadi 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 [address] [place] [address] Child Psychometrist Family Medicine 07/09/24 Quarantine Officer Relationship Specialty Start Date End Date Mathew Cobian MD [address] [place] [address] PCP - General 09/22/08 Brian Ahmadi 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 [address] [place] [address] Child Psychometrist Family Medicine 07/09/24 Quarantine Officer Relationship Specialty Start Date End Date Mathew Cobian MD [address] [place] [address] PCP - General 09/22/08 Brian Ahmadi 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 [address] [place] [address] Child Psychometrist Family [facility] 07/09/24 Team Status: Inactive Member Role/Relationship Status Dates Dr. Mathew Cobian MD Primary Care Provider Active Start: January 20, 2025 End: January 21, 2025 Dr. Jj Koch DO Attending Provider Active Start: January 20, 2025 End: January 21, 2025 Dr. Jj Koch DO Emergency Provider Active Start: January 20, 2025 End: January 21, 2025 Team Status: Inactive Member Role/Relationship Status Dates Dr. Mathew Cobian MD Primary Care Provider Active Start: January 29, 2025 End: January 29, 2025 Dr. Jj Koch DO Emergency Provider Active Start: January 29, 2025 End: January 29, 2025 Quarantine Officer Relationship Specialty Start Date End Date Mathew Cobian MD [address] [place] [address] PCP - General 09/22/08 Brian Ahmadi 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 [address] [place] [address] Child Psychometrist Family Medicine 07/09/24 Quarantine Officer Relationship Specialty Start Date End Date Mathew Cobian MD [address] [place] [address] PCP - General 09/22/08 Brian Ahmadi 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 [address] [place] [address] Child Psychometrist Family Medicine 07/09/24 Quarantine Officer Relationship Specialty Start Date End Date Mathew Cobian MD [address] [place] [address] PCP - General 09/22/08 Brian Ahmadi 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 [address] [place] [address] Child Psychometrist Family Medicine 07/09/24 Goals (unrecognized section and content) Goals may be documented in a n alternate sectionGoals may be documented in an alternate section No data available for this sectionGoals may be documented in an alternate sectionGoals may be documented in an alternate sectionGoals may be documented in an alternate section Scheduled Active and Recently Administ ered Medications (unrecognized section and content) Medication Order 09/27/2023 09/28/2023 09/29/2023 B Complex capsule 1 capsule 1 capsule, Oral, DAILY, First dose on Mon09/27/23 at 0900, Until Discontinued 0823 (Given - Provider: Ashlyn Romero RN) 0831 (Given - Provider: Ashlyn Romero RN) 0839 (Given - Provider: Giselle Steele RN) cephALEXin (KEFLEX) capsule 500 mg (CANCELED) [...] dose on Mon09/27/23 at 0900, Until Discontinued 0822 (Given - Provider: Ashlyn Romero RN) 0828 (Given - Provider: Ashlyn Romero RN) 0838 (Given - Provider: Giselle Steele RN) Enoxaparin Sodium (LOVENOX) injection 40 mg (CANCELED) 40 mg, Subcutaneous, DAILY, First dose on Mon09/27/23 at 1100, Until Discontinued, Indications: DVT/PE prophylaxis 1059 (Given - Provider: Ashlyn Romero RN) 08 (Given - Provider: Ashlyn Romero RN) Enoxaparin Sodium (LOVENOX) injection 40 mg(Linked Group 1) 40 mg, Subcutaneous, DAILY, First dose (after last modification) on Mon09/29/23 at 0900, Until Discontinued, Indications: DVT/PE prophylaxis 0839 (Given - Provider: Giselle Steele RN) Gadopiclenol SOLN 1-25 mL (COMPLETED) 1-25 mL, Intravenous, ONCE, 1 dose, On Mon09/27/23 at 0145 0139 (Given - Provider: Afshan Esquivel) Levothyroxine (SYNTHROID) tablet 175 mcg (CANCELED) 175 mcg, Oral, DAILY, First dose on Mon09/27/23 at 0900, Until Discontinued 0823 (Given - Provider: Ashyln Romero RN) 08 (Given - Provider: Ashlyn Romero RN) Levothyroxine (SYNTHROID) tablet 175 mcg 175 mcg, Oral, DAILY BEFORE BREAKFAST, First dose (after last modification) on Mon09/29/23 at 0600, Until Discontinued 0522 (Given - Provider: Khadijah Rahman, REBA) lidocaine 4 % patch 1 patch 1 patch, Transdermal, Administer over 12 Hours, EVERY 24 HOURS, First dose on Mon09/26/23 at 2245, Until Discontinued, Apply to back . 2247 (Not Given - Provider: Khadijah Rahman, REBA - Reason: Patient/family refused) 2126 (Not Given - Provider: Khadijah Rahman, REBA - Reason: Patient/family refused) LORazepam (ATIVAN) tablet 2 mg (COMPLETED) 2 mg, Oral, ONCE, 1 dose, On Mon09/27/23 at 0030 0102 (Given - Provider: Nela Blanco RN - Comment: pt requests only 1mg) Pantoprazole (PROTONIX) tablet DR 40 mg 40 mg, Oral, DAILY, First dose on Mon09/27/23 at 0900, Until Discontinued, Swallow whole; do not crush or chew., Indications: Continuation of Home Therapy, GERD 0823 (Given - Provider: Ashlyn Romero RN) 08 (Given - Provider: Ashlyn Romero RN) 0838 (Given - Provider: Giselle Steele, REBA) Senna (SENOKOT) tablet 8.6 mg(Linked Group 2) 8.6 mg, Oral, DAILY, First dose on Mon09/27/23 at 0900, Until Discontinued 0820 (Given - Provider: Ashlyn Romero RN) 08 (Given - Provider: Ashlyn Romero RN) 0840 (Not Given - Provider: Giselle Steele, RN - Reason: Patient/family refused) Senna (SENOKOT) tablet 8.6 mg(Linked Group 2) 8.6 mg, Per NG tube, DAILY, First dose on Mon09/27/23 at 0900, Until Discontinued 0820 (See Alternative - Provider: Ashlyn Romero RN) 0829 (See Alternative - Provider: Ashlyn Romero RN) 0840 (See Alternative - Provider: Giselle Steele, REBA) PRN Medication Order 09/27/2023 09/28/2023 09/29/2023 Acetaminophen [...] Rahman RN)0937 (See Alternative - Provider: Giselle Steele RN) Acetaminophen (TYLENOL) tablet 325 mg(Linked Group 3) 325 mg, Per NG tube, EVERY 4 HOURS NEEDED, Starting on Mon09/27/23 at 0000, Until Mon09/29/23 at 1617, Mild Pain, Moderate Pain, Maximum dose of acetaminophen is 4000 mg from all sources in 24 hours. 1135 (See Alternative - Provider: Ashlyn Romero RN)1713 (See Alternative - Provider: Ashlyn Romero RN) 05 (See Alternative - Provider: Khadijah Rhaman RN)0937 (See Alternative - Provider: Giselle Steele RN) Acetaminophen (TYLENOL) tablet 650 mg(Linked Group 3) 650 mg, Oral, EVERY 4 HOURS NEEDED, Starting on Mon09/27/23 at 0000, Until Mon09/29/23 at 1617, Severe Pain, Oral temp > 99.5, Maximum dose of acetaminophen is 4000 mg from all sources in 24 hours. 1135 (Given - Provider: Ashlyn oRmero RN)1713 (Given - Provider: Ashlyn Romero RN) 05 (Given - Provider: Khadijah Rahman RN)0937 (Given - Provider: Giselle Steele RN) Acetaminophen (TYLENOL) tablet 650 mg(Linked Group 3) 650 mg, Per NG tube, EVERY 4 HOURS NEEDED, Starting on Mon09/27/23 at 0000, Until Mon09/29/23 at 1617, Severe Pain, Oral temp > 99.5, Maximum dose of acetaminophen is 4000 mg from all sources in 24 hours. 1135 (See Alternative - Provider: Ashlyn Romero RN)1713 (See Alternative - Provider: Ashlyn Romero RN) 05 (See Alternative - Provider: Khadijah Rahman RN)0937 (See Alternative - Provider: Giselle Steele RN) hydrALAZINE (APRESOLINE) injection 10 mg(Linked Group [...] 2037 (Given - Provider: Khadijah Rahman RN) 828 (Given - Provider: Ashlyn Romero RN)2153 (Given - Provider: Khadijah Rahman RN) Polyethylene glycol (MIRALAX) packet 17 g(Linked Group 8) 17 g, Per NG tube, DAILY NEEDED, Starting on Mon09/27/23 at 0000, Until Mon09/29/23 at 1617, Constipation If No Bowel Movement in 48 Hours 2037 (See Alternative - Provider: Khadijah Rahman, RN) 828 (See Alternative - Provider: Ashlyn Romero, RN)2153 (See Alternative - Provider: Khadijah Rahman [...] on Mon09/27/23 at 0632, Until Mon09/29/23 at 161, Other, SBP > 140 with HR < [...] BE BASED ON THE PRIMARY CLINICAL RECORDS. [facility]. provides no warranty or guarantee of the accuracy or completeness of information in this document.
[2025-04-07 00:10] LABS: AST(SGOT) 34 U/L (<=37); Alanine Aminotransfer ALT/SGPT 37 U/L (<=46); Albumin, Serum 4.4 g/dL (3.5-5.0); Alcohol, Blood (Medical)-Serum 61.0 mg/dL (<=10.0); Alkaline Phosphatase 100 U/L (40-129); Anion Gap 21 (5-15); BUN 11 mg/dL (4-19); BUN/Creat Ratio 13.3 RATIO (10-20); Bilirubin, Direct 0.29 mg/dL (0.00-0.30); Calcium,Total 9.4 mg/dL (7.6-11.0); Carbon Dioxide 20.7 mmol/L (21.0-32.0); Chloride 92 mmol/L (98-108); Estimated Creatinine Clearance 110.46 ml/min (50-250); Globulin 3.1 g/dL (2.2-4.2); Glucose 95 mg/dL (70-99); Lipase 29 U/L (13-75); Magnesium 1.9 mg/dL (1.5-2.2); Potassium 4.0 mmol/L (3.3-5.1)
[2025-04-07 00:13] VITALS: BP 130/77; PULSE 76; RESP 16; TEMP 36.7; O2SAT 98
[2025-04-07] MEDS: DiphenhydrAMINE 50 MG/ML Syringe 25 MG IV (00:44)
[2025-04-07 00:59] LABS: Barbiturate Urine NEGATIVE (< 200 ng/mL); Benzodiazepine Urine PRESUMPTIVE POSITIVE (< 200 ng/mL); PCP Urine NEGATIVE (< 25 ng/mL); THC Urine NEGATIVE (< 50 ng/mL)
--- NOTE | 2025-04-07 01:32 | EX.ED.DYSGE1 ---
HPI History of Present Illness Chief Complaint: ETOH Intox Informant: patient Narrative Narrative: Patient is a 59-year-old male with past medical history of anxiety as well as GERD and hypothyroidism. He states he recently broke up with his girlfriend and his anxiety has worsened since that time. He states he has been drinking roughly 1/3 a bottle of bourbon daily for the last 7 days. He states that at baseline he does not drink daily. He states he may have a glass of liquor or a few beers over the weekend but is adamant that he does not drink on a daily basis. He states his last drink was roughly 10 hours prior to arrival. He denies any homicidal or suicidal ideation but he reports that despite drinking his anxiety has been elevated and secondary to this comes in for evaluation [facility] Medical History Alcohol abuse Anxiety History of trigger finger Alcohol abuse Chronic pain Smoker CPAP (continuous positive airway pressure) dependence Sleep apnea Cerebral palsy Home Medications ?Medication ?Instructions ?Recorded ?Last Taken ?Type omeprazole 20 mg capsule,delayed 20 mg PO DAILY GERD 02/05/19 04/23/24 History release multivitamin 1 tab PO DAILY supplement 12/04/20 04/22/24 History acetaminophen 500 mg tablet 1,000 mg (2 x 500 mg) PO Q6H PRN 12/23/20 Unknown Rx PRN Pain Score 1-5 #0 tabs citalopram 40 mg tablet 40 mg PO DAILY #0 tabs 12/23/20 04/23/24 Rx lorazepam 1 mg tablet 1 mg PO Q8H PRN PRN Anxiety 02/27/22 04/22/24 History vitamin B complex 1 tab PO DAILY 02/27/22 04/22/24 History levothyroxine 150 mcg tablet 150 mcg PO DAILY 11/05/24 Unknown History Allergy/AdvReac Type Severity Reaction Status Date / Time No Known Allergies Allergy Verified 04/06/25 22:18 Family History Other Cancer Diabetes Surgical History History of tonsillectomy H/O hand surgery Social History household members: other details: Roommate who does not help him cook or clean. Smoking Status: Former smoker alcohol intake: current alcohol intake frequency: 3 or more drinks per day Alcohol type: hard liquor ROS ROS ED Constitutional Constitutional ED: Denies chills or fever(s) Eyes Eyes: Denies change in vision ENT ENT ED: Denies sore throat Cardiovascular Cardiovascular: Denies chest pain Respiratory/Chest Respiratory/Chest: Denies cough or dyspnea Gastrointestinal Gastrointestinal: Reports nausea; Denies abdominal pain, diarrhea or vomiting Genitourinary Genitourinary ED: Denies dysuria Musculoskeletal Musculoskeletal: Denies myalgias Integumentary Denies rash Neurologic Neurologic: Denies headache(s) Psychiatric Psychiatric: Reports anxiety; Denies suicidal ideation or suicidal thoughts Hematologic/Lymphatic Hematologic/Lymphatic: Denies easy bleeding or easy bruising EXAM Physical Exam Const Vital Signs: 04/06/25 22:14 04/07/25 00:13 Temperature 98.2 F 98.1 F Temperature Source Oral Oral Pulse Rate 56 L 76 Respiratory Rate 16 16 Blood Pressure 129/81 H 130/77 H Blood Pressure Mean 97 94 Pulse Ox 97 98 Oxygen Delivery Method Room Air Room Air Positive well nourished, well developed and obese General Appearance ED: well developed; Negative for pallor Nutritional Appearance: obese HEENT Reports moist mucous membranes HEENT Narrative: Normocephalic atraumatic No tongue or cheek biting to suggest seizure activity No tongue or lip swelling no oral lesions no airway edema or compromise; no secondary findings in the posterior pharynx to suggest infection Eyes PERRL and EOMs intact bilaterally Eyes Narrative: There is mild scleral injection bilaterally consistent with history of alcohol use Pupils lower are equal reactive to light and accommodation Neck supple Resp normal respiratory effort and clear to auscultation bilaterally Cardio regular rate and regular rhythm GI non-tender, non-distended and no masses GI Narrative: Abdomen is soft nontender and nondistended with hyperactive bowel sounds. No voluntary guarding or rigidity or pulsatile mass Auscultation: hyperactive bowel sounds Palpation: soft Extremity normal to inspection Neuro oriented x3, CN's II-XII intact bilaterally and no sensory deficits noted Sensorium / Orientation: alert Motor Exam: strength 5/5 throughout Psych Psych Narrative: Patient has an anxious affect but no homicidal or suicidal ideation Mood & Affect: anxious Skin no rashes or lesions noted General Skin Exam: Negative for jaundice or pallor MDM MDM MDM Narrative Medical decision making narrative: Patient arrived to the ER with stable vitals. He reported drinking daily for the past 7 days but states that at baseline he is not a daily drinker and that he may only have a drink or 2 typically on a weekend. As he states that he does not drink daily at baseline and he is only been drinking daily for the last 7 days the chance of him progressing to alcohol withdrawal and DTs is extremely low and therefore I feel he does not need admitted for detox. In order to ensure that his drinking over the past 7 days has not led to acute kidney injury or clinically significant electrolyte abnormality I did elect to perform basic laboratory studies. Also as he reports increased anxiety I do feel he would benefit from talking to crisis center. Patient's labs revealed a decreased bicarb and mildly elevated anion gap consistent with his recent binging of alcohol. Otherwise there is no clinically significant findings. The patient was hydrated with normal saline and given Protonix as well as Compazine and Ativan and Benadryl. The treatment did help reduce his symptoms. He was evaluated by crisis center and they agree that he does not meet criteria for inpatient treatment of his anxiety and as he is not have homicidal or suicidal ideation do not feel he needs emergent placement. As the patient is adamant he only drinks occasionally until this recent life stressor the chance for withdrawal is low and therefore I do not feel there is need for admission. The patient was advised he will need to continue his Ativan to help with his breakthrough anxiety regarding his recent life stressor but otherwise can follow-up with crisis center on an outpatient basis to discuss further interventions regarding his injuries anxiety. At this time as the patient's vitals are stable and his symptoms have improved and he has repeatedly stated he does not drink on a daily basis at baseline but only during this last few days based on his recent break-up my concern for progression to DTs and withdrawals is low and I do not feel the need for admission based on this and he is otherwise safe for discharge History & Record Review Discussion w/independent historian: Patient Lab Data Attestation: I reviewed the patient's lab results. Labs: Laboratory Results - last 24 hr 04/06/25 04/06/25 04/07/25 22:25 22:55 00:25 WBC 9.4 RBC 4.80 Hgb 14.7 Hct 42.0 MCV 87.5 MCH 30.6 MCHC 35.0 RDW Std Deviation 46.5 H RDW Coeff of Ras 14.5 Plt Count 289 MPV 10.0 Immature Gran % (Auto) 0.300 Neut % (Auto) 76.8 H Lymph % (Auto) 15.2 L [place] % (Auto) 7.2 Eos % (Auto) 0.2 Baso % (Auto) 0.3 Absolute Neuts (auto) 7.2 Absolute Lymphs (auto) 1.43 Nucleated RBC % 0 Sodium 134 Potassium 4.0 Chloride 92 L Carbon Dioxide 20.7 L Anion Gap 21 H BUN 11 Creatinine 0.80 Estim Creat Clear Calc 110.46 Est GFR (MDRD) Non-Af 103 BUN/Creatinine Ratio 13.3 Glucose 95 Calcium 9.4 Magnesium 1.9 Total Bilirubin 0.61 Direct Bilirubin 0.29 AST 34 ALT 37 Alkaline Phosphatase 100 Total Protein 7.5 Albumin 4.4 Globulin 3.1 Lipase 29 Urine Opiates Screen NEGATIVE U Buprenorphine Qual NEGATIVE Ur Oxycodone Screen NEGATIVE Urine Methadone Screen NEGATIVE Urine Fentanyl Screen NEGATIVE Ur Barbiturates Screen NEGATIVE Ur Phencyclidine Scrn NEGATIVE Ur Amphetamines Screen NEGATIVE U Benzodiazepines Scrn PRESUMPTIVE POSITIVE Urine Cocaine Screen NEGATIVE U Cannabinoids Screen NEGATIVE Ethyl Alcohol 61.0 H Management Discussion w/another healthcare provider: Behavioral health Discharge Plan Triage Chief Complaint: ETOH Intox ED Provider: Jj Koch Dx/Rx/DC Orders Clinical Impression: Anxiety, Alcohol abuse, Hypothyroidism, Gastroesophageal reflux Instructions: Social Drinking vs Problem Drinking, Your Body's Response to Anxiety Prescriptions: No Action omeprazole 20 MG capsule 20 mg PO DAILY multivitamin Tablet 1 tab PO DAILY acetaminophen 500 mg Tablet 1,000 mg PO Q6H PRN PRN (Reason: Pain Score 1-5) Qty: 0 0RF citalopram 40 mg Tablet 40 mg PO DAILY Qty: 0 0RF vitamin B complex Tablet 1 tab PO DAILY lorazepam 1 mg tablet 1 mg PO Q8H PRN PRN (Reason: Anxiety) levothyroxine 150 mcg tablet 150 mcg PO DAILY Primary Care Provider: Sai Cobian Referrals: Sai Cobian MD [Primary Care Provider] - Activity Restrictions/Additional Instructions: Please follow-up with crisis center for reevaluation regarding your anxiety. You may need to take your Ativan on a more scheduled basis such as 2 or 3 times a day for the next few days to help control your symptoms. Return to the ER should you have any further concerns. Print Language: Persian Disposition Disposition: Home, Self Care
[2025-04-07 02:15] VITALS: BP 153/91; PULSE 98; RESP 22; TEMP 36.6; O2SAT 98
== END 2025-04-07 02:16 | disposition home or self-care (01) ==
PROVIDERS: Emergency Provider Emergency Medicine; PCP Family Medicine; Visit Provider Emergency Medicine
DX: F41.9 Anxiety disorder, unspecified (principal); F10.10 Alcohol abuse, uncomplicated; E03.9 Hypothyroidism, unspecified; Z87.891 Personal history of nicotine dependence; K21.9 Gastro-esophageal reflux disease without esophagitis; E66.9 Obesity, unspecified; R11.0 Nausea; Z99.89 Dependence on other enabling machines and devices; G47.30 Sleep apnea, unspecified; Y90.3 Blood alcohol level of 60-79 mg/100 ml
CPT/HCPCS: 80048; 80076; 80307; 82077; 83690; 83735; 85025; 96361; 96374; 96375; 99285; A4216

== ENCOUNTER 2025-04-09 02:57 | Emergency (ER) | payer MEDICARE, MEDICAID, SELFPAY ==
--- NOTE | 2025-04-09 02:42 | EKG12_ITS ---
Test Reason : DYSRHYTHMIA Blood Pressure : */* mmHG Vent. Rate : 65 BPM Atrial Rate : 65 BPM P-R Int : 140 ms QRS Dur : 80 ms QT Int : 442 ms P-R-T Axes : 65 66 61 degrees QTcB Int : 459 ms Normal sinus rhythm Normal ECG Confirmed by CHRIS AREVALO, HEDY ([id number]), brands editor MARIAM CORONADO ([id number]) on 04/11/2025 10:32:42 AM Referred By: AR Confirmed By: HEDY PEREZ MD
--- NOTE | 2025-04-09 03:00 | RAD_ITS ---
EXAM: CHEST. CLINICAL HISTORY: SHORTNESS OF BREATH. COMPARISON: NONE. TECHNIQUE: TWO VIEWS. FINDINGS: Mild bilateral basilar atelectatic pulmonary changes. There is no demonstrated pleural abnormality. Normal heart and pericardium. Normal mediastinum and cachorro. Normal visualized pulmonary arteries. Normal visualized aortic arch and descending thoracic aorta. Normal visualized thoracic spine. Normal visualized ribs, clavicles, and shoulders. There is no demonstrated abnormality of the visualized soft tissue structures of the upper abdomen. RAD/Chest PA and Lateral IMPRESSION: Mild bilateral basilar atelectatic pulmonary changes. Reading [facility]
--- OUTSIDE RECORDS SUMMARY | 2025-04-09 04:27 | XMS RPT_ITS | CCD ---
Author Organization [facility] Care Team Providers Care [address] Registrar Name Role Phone Mathew Cobian MD Primary [...] Referring Unavailable GILSON BAR Attending Unavailable Yahaira RETAIL SALES SPECIALIST.Gypsy BLANKENSHIP Unavailable Daiana RETAIL SALES SPECIALISTBrian CORNELIUS Unavailable DR MATHEW COBIAN MD Primary Care Physician DR MATHEW COBIAN MD Primary Care Unavailab KAE Escalera DO Attending Unavailable RAPHAEL CALDERON JR Referring Unavaila MATHEW Barth Primary Care Unavailable Dr. Mathew Cobian MD Primary Care Provider [phone] Dr. Franklyn Donaldson DO Attending Provider Dr. Franklyn Donaldson DO Emergency Provider Salvatore Watkins MD Emergency Provider Dr. Mathew Cobian MD Primary Care Provider Salvatore Watkins MD Attending Provider And DO, Dr. Gardner Emergency Provider And DO, Dr. Gardner Attending Provider GILSON BAR Attending Unavailable ELDERBROCK, MATHEW D [...] ELDERBROCK, MATHEW D Primary Care Unavailable GYPSY AYALA Attending Unavailabl e ELDERBROCK, MATHEW D Primary Care Unavailable GYPSY AYALA Referring Unavailabl e ELDERBROCK, MATHEW D Primary Care Unavailable BETITO, DEVI Y Attending Unavailable ELDERBROCK, MATHEW D Primary Care Unavailable GREYSON ELLSWORTH Attending Unavailable ELDERBROCK, MATHEW D Primary Care Unavailable WILLIAM ESQUEDAELLE Attending Unavailable ELDERBROCK, MATHEW D Primary Care Unavailable KNINO WHITE Attending Unavailable ELDERBROCK, MATHEW D Primary Care Unavailable ELDERBROCK, MATHEW D Attending Unavailable DAIANA, BRIAN Attending Unavailable ELDERBROCK, MATHEW D Primary Care Unavailable ELDERBROCK, MATHEW D Primary Care Unavailable KNOBLEINO Referring Unavailable ELDERBROCK, MATHEW D Primary Care Unavailable MEGA LOJA Attending Unavailable ELDERBROCK, MATHEW D Primary Care Unavailable KNOBLEINO Attending Unavailable RAPHAEL CALDERON JR Referring Unavaila ble ELDERBROCK, MATHEW D Primary Care Unavailable DAIANA, BRIAN Referring Unavailable GILSON BAR Attending Unavailable ELDERBROCK, MATHEW D Primary Care Unavailable ELDERBROCK, MATHEW D Primary Care Unavailable VETOCATRACHO, TAMMIE Referring Unavailable MATHEW COBIAN Primary Care Unavailable VETOVITZ, TAMMIE Referring Unavailable VERODNEY, TAMMIE Attending Unavailable BRIAN AHMADI Attending Unavailable MATHEW COBIAN Primary Care Unavailable MATHEW COBIAN Attending Unavailable MATHEW COBIAN Primary Care Unavailable Dr. Mathew Cobian MD Primary Care Provider Jj Koch Attending Unavailable Mathew Cobian Primary Care Unavailable Jj Koch Attending Unavailable Mathew Cobian Primary Care Unavailable Mathew Cobian Primary Care Unavailable Jj Koch Attending Unavailable Mathew Cobian Primary Care Unavailable Franklyn Donaldson Attending Unavailable Mathew Cobian Primary Care Unavailable Franklyn Donaldson Attending Unavailable Mathew Cobian Primary Care Unavailable Salvatore Watkins Attending Unavailable Medications Current Medications Medication Drug [...] as needed for up to 3 days. [id number] 200 actuat albuterol 0.09 mg/actuat metered dose [...] baclofen 10 mg oral tablet (1 source) gamma-Aminobutyr ic Acid-ergic Agonist Start: 11-22-2020 take 10 mg [...] on above: Take 2,000 mcg by mo ut once daily. CPAP (20 sources) Start: 03-13-2025 CPAP Indications: Sleep apnea, unspecified type Initiate [...] oral tablet (2 sources) Tetracycline-class Drug Start: End: take 1 tablet by mouth twice daily doxycycline (VIBRA-TABS) 100 mg tablet Indications: Sinobronchitis Take 1 tablet by mouth two times a day for 10 days. 20 tablet 0 08/15/2023 08/25/2023 Active Comment on above: Take 1 tablet by radha two times a day for 10 days. fexofenadine hydrochloride 180 mg oral tablet (20 sources) Histamine-1 Receptor Antagonist Start: 025 End: take 1 tablet by mouth once daily fexofenadine (JOHANA ALLERGY) 180 mg tablet Take 1 tablet by mouth once daily. 30 tablet 11 03/13/2025 Active fluticasone propionate 0.05 mg/actuat metered dose [...] 12-04-2020 End: 12-04-2020 Fluticasone Propionate 50 mcg/actuation Frost,Suspension Discontinued 1 NMA NASAL TWICE A DAY December 04, 2020 12:00am December 04, 2020 7:05pm Start: 12-04-2020 End: 12-04-2020 Fluticasone Propionate Disco ntinued 1 SPRAY NASAL TWICE A DAY December 04, 2020 12:00am December 04, 2020 7:05pm glycerin 2 mg/ml / hypromellose 2 mg/ml / polyethylene glycol 400 10 mg/ml ophthalmic solution (1 source) Non-Standardized Chemical Allergen Start: 12-23-2020 Peg 582-Bbdjprjwwbnf-Nctoclek (Artificial Tears(Gd-Dkwc-Vsbf)) 1-0.2-0.2 % Drops Active 1 DRP EACH [...] mg oral tablet (20 sources) l-Thyroxine Start: 11-06-19 25 take 1 tablet by mouth once daily Levothyroxine 150 mcg tablet Active 150 ug PO DAILY November 05, 2024 12:00am Start: 04-14-2024 End: 04-24-2024 take 1 tablet by mouth once daily [...] tablet by mouth once daily Levothyroxine 175 mcg tablet Discontinued 175 ug PO DAILY September 26, 2023 1:00am November 05, 2024 8:17pm Start: 07-14-2023 End: 09-15-2023 take 1 tablet by mouth once daily levothyroxine (SYNTHROID) 150 mcg tablet take 1 tablet by mouth once daily on an empty stomach 90 tablet 1 07/14/2023 09/15/2023 Discontinued Start: 12-20-2022 End: 06-14-2023 take 1 tablet by mouth once daily levothyroxine (SYNTHROID) 150 mcg tablet take 1 [...] empty stomach loratadine 10 mg oral tablet (18 sources) Start: 12-25-2024 End: 02-23-2025 take 1 tablet by mouth once daily as needed loratadine (CLARITIN) 10 mg tablet Take 1 tablet by mouth once daily as needed (for allergy symptoms). 30 tablet 1 12/25/2024 02/23/2025 Active Start: 10-16-2018 End: 10-16-2018 take 1 tablet by mouth once daily Loratadine (Claritin) 10 MG tablet Discontinued 10 mg PO DAILY 1 0 October 16, 2018 12:00am October 16, 2018 [...] PO DAILY as needed for anxiety 10 0 November 22, 2020 12:00am December 04, 2020 3:16pm Start: 11-25-2017 End: 11-01-2018 take 1 tablet by mouth twice daily as needed for anxiety Lorazepam 1 MG tablet Discontinued 1 mg PO TWICE A DAY as needed for Anxiety 4 0 November 25, 2017 10:01am November 01, 2018 [...] 12:00am December 04, 2020 7:05pm Multivitamin tablet (8 sources) Start: 12-04-2020 Multivitamin t ablet Active 1 {tbl} PO DAILY December 04, 2020 7:05pm supplement Start: 12-04-2020 Multivitamin t ablet Active 1 {tbl} PO DAILY December 04, 2020 7:05pm Start: 12-04-2020 End: 12-04-2020 Multivitamin tablet Disconti nued 1 {tbl} PO DAILY 1 December 04, 2020 12:00am December 04, 2020 7:05pm Start: 12-04-2020 End: 12-04-2020 Multivitamin tablet Disconti nued 1 {tbl} PO DAILY December 04, 2020 12:00am December 04, 2020 7:05pm nystatin [id number] unt/ml oral suspension (3 sources) Polyene Antifungal [...] mouth once daily Omeprazole 20 MG capsule Active 20 mg PO DAILY February 05, 2019 12:00am GERD Start: 12-05-2017 End: 10-16-2018 take 1 capsule by mouth once daily Omeprazole 20 MG capsule Discontinued 20 mg PO DAILY@0800 March 10, 2018 11:32am October 16, 2018 3:49pm acid reflux Comment on above: Take 1 capsule by [facility] once daily. take 1 capsule by [facility] once daily sulfamethoxazole 800 mg / trimethoprim 160 mg oral tablet (3 sources) Dihydrofolate Reductase Inhibitor Antibacterial, Sulfonamide Antimicrobial Start: End: take 1 tablet by mouth twice daily sulfamethoxazole-tri methoprim (BACTRIM DS) 800-160 mg per tablet Indications: Prostatitis, acute Take 1 tablet by mouth twice daily for 7 days. 14 tablet 0 04/12/2023 04/19/2023 Active Comment on above: Take 1 tablet by [facility] twice daily for 7 days. triamcinolone acetonide 0.25 mg/ml topical cream (1 source) Corticosteroid Start: End: triamcinolone (KENALOG) 0.025 % cream Apply [...] on above: Take 1 capsule by [facility] once daily. Vitamin B Complex Tablet (4 sources) Start: 02-27-2022 Vitamin B Complex Tablet Active 1 {tbl} PO DAILY February 27, 2022 12:00am Completed/Discontinued Medications Medication Drug Class(es) Dates Sig (Normalized) Sig (Original) Acetaminophen (20 sources) Start: 09-27-2023 End: 09-29-2023 take 1 tablet by mouth every four hours as needed Acetaminophen (TYLENOL) tablet 325 mg Start: 12-23-2020 take 2 tablets by mo uth every six hours as needed for pain Acetaminophen 500 mg Tablet Active 1000 mg PO EVERY 6 HOURS NEEDED as needed for Pain Score 1-5 0 0 December 23, 2020 12:00am Start: 12-23-2020 take 1000 mg by mout h every six hours as needed Acetaminophen Active [...] Fever, headache, pain 0 November 25, 2017 12:00am December 05, 2017 10:27pm take 1 tablet by radha th every four hours Acetaminophen 325 MG tablet Take 1 tablet by mouth every 4 hours. Active acetaminophen 325 mg / oxyCODONE hydrochloride 5 mg oral tablet (20 sources) Opioid Agonist Start: 01-29-2025 End: 04-06-2025 Oxycodone-Acetaminophen (Percocet) 5-325 mg tablet Discontinued 1 {tbl} PO EVERY 6 HOURS as needed for pain 12 3 0 January 29, 2025 April 06, 2025 10:19pm Candidiasis of mouth Candidal stomatitis Start: 07-22-2024 [...] 20, 2017 12:00am November 25, 2017 10:02am aluminum hydroxide 80 mg/ml / magnesium hydroxide 80 mg/ml / simethicone 8 mg/ml oral suspension (6 sources) Start: 03-10-2018 End: 03-27-2018 take 1 [...] mg / clavulanate 125 mg oral tablet (4 sources) Penicillin-class Antibacterial Start: 04-23-2024 End: 11-05-2024 [...] above: Take 1 capsule by mo [facility] one time a week. citalopram 20 mg oral tablet (20 sources) Serotonin Reuptake Inhibitor Start: 12-04-2020 End: 12-23-2020 Citalopram 20 mg tablet Discontinued 20 mg PO DAILY December 04, 2020 7:05pm December 23, 2020 7:26pm Mood for 1 week, then stop Start: 11-18-2020 End: 08-06-2024 take 1 tablet by mouth once daily Citalopram 40 mg Tablet Active 40 mg PO DAILY 0 0 December 23, 2020 12:00am Start: 11-02-2018 End: 12-04-2020 take 2 tablets [...] 2018 3:08pm take 4 tablets by mo [facility] once daily Citalopram 10 MG tablet Take 4 tablets by mouth daily. Active Comment on above: Take 40 mg by mouth once daily. Take 1 tablet by radha once daily. clindamycin 300 mg oral capsule (4 sources) Lincosamide Antibacterial Start: 025 End: take 1 capsule by mouth every six hours Clindamycin Hcl (Cleocin Hcl) 300 mg capsule Discontinued 300 mg PO EVERY 6 HOURS 40 0 November 05, 2024 12:00am April 06, 2025 10:19pm cyclobenzaprine hydrochloride 10 mg oral tablet (7 sources) Muscle Relaxant Start: 021 End: take 1 tablet by mouth every eight [...] NEEDED as needed for Muscle Spasm 90 0 December 05, 2017 12:00am March 27, 2018 8:17pm diazePAM 5 mg oral tablet (3 sources) Benzodiazepine Start: 01-21-2025 End: 04-06-2025 take 1 tablet by mouth three times daily as needed for dizziness Diazepam (Valium) 5 mg tablet Discontinued 5 mg PO THREE TIMES A DAY as needed for Vertigo/dizziness 15 5 0 January 21, 2025 12:00am April 06, 2025 10:19pm diclofenac sodium 50 mg delayed release oral tablet (6 sources) Nonsteroidal Anti-inflammatory Drug Start: 12-05-2017 End: [...] on above: Take 1 capsule by [facility] once daily. Enoxaparin Sodium (LOVENOX) injection 40 mg (2 sources) Start: 09-29-2023 End: 09-29-2023 Enoxaparin Sodium (LOVENOX) injection 40 mg Start: 09-27-2023 End: 09-28-2023 inject 40 mg by subcutaneous injection once daily 40 mg, Subcutaneous, DAILY, First dose on Mon09/27/23 at 1100, Until Discontinued, Indications: DVT/PE prophylaxis fluconazole 100 mg oral tablet (2 sources) Azole Antifungal Start: 01-29-2025 End: 04-06-2025 take 1 tablet by mouth twice daily Fluconazole (Diflucan) 100 mg tablet Discontinued 100 mg PO TWICE A DAY 14 7 0 January 29, 2025 12:00am April 06, 2025 10:19pm Gadopiclenol SOLN 1-25 mL (1 source) Start: 09-27-2023 End: 09-27-2023 1-25 mL, Intravenous, ONCE, 1 dose, On Mon09/27/23 at 0145 2 ml glycopyrrolate 0.2 mg/ml injection (1 source) Start: 05-13-2024 End: 05-13-2024 0.2 mg, INTRAVENOUS, ONCE, 1 dose, On Mon05/13/24 at 1030, Recovery or Phase I (only) Start: 05-13-2024 End: 05-13-2024 0.2 mg, INTRAVENOUS, ONCE, 1 dose, On Mon05/13/24 at 1030, Recovery or Phase I (only) heparin sodium, porcine 5000 unt/ml injectable solution (12 sources) Unfractionated Heparin, Anti-coagulant Start: 03-10-2018 End: [...] 10 mg lidocaine 0.04 mg/mg medicated patch (13 sources) Antiarrhythmic, Amide Local Anesthetic Start: 09-26-2023 [...] 25, 2017 2:25pm December 05, 2017 10:28pm Magic Mouth Wash (Bmx) 180 mL suspension (2 sources) Start: 01-29-2025 End: 04-06-2025 Magic Mouth Wash (Bmx) 180 m L suspension Discontinued 10 mL PO 4 TIMES DAILY as needed for pain 180 January 29, 2025 11:04pm April 06, 2025 10:19pm diphenhydramine 12.5 mg/5 mL oral liquid 60 mL; aluminum-mag hydroxide-simethicone 400 mg-400 mg-40 mg/5 mL oral susp 60 mL; Lidocaine Viscous 2 % mucosal solution 60 mL; Per 180 mL Start: 01-29-2025 Magic Mouth Wa sh (Bmx) 180 mL suspension Active 10 mL PO 4 TIMES DAILY as needed for pain 180 January 29, 2025 11:04pm diphenhydramine 12.5 mg/5 mL oral liquid 60 mL; aluminum-mag hydroxide-simethicone 400 mg-400 mg-40 mg/5 mL oral susp 60 mL; Lidocaine Viscous 2 % mucosal solution 60 mL; Per 180 mL magnesium hydroxide 80 mg/ml oral suspension (18 sources) Start: 10-16-2018 End: 11-01-2018 take 1 [...] doses. ondansetron 4 mg disintegrating oral tablet (6 sources) Serotonin-3 Receptor Antagonist Start: 01-30-20 End: 04-06-20 take 1 tablet by mouth three times daily as needed for nausea and vomiting Ondansetron 4 mg tablet,disintegratin g Discontinued 4 mg PO THREE TIMES A DAY as needed for nausea and vomiting January 29, 2025 11:04pm April 06, 2025 10:19pm Start: 07-22-2024 End: 11-05-2024 take 1 tablet by mouth every six hours as needed for nausea and vomiting Ondansetron 4 mg tablet,disintegrating Discontinued 4 mg PO EVERY 6 HOURS as needed for nausea and vomiting 0 July 22, 2024 1:00am November 05, 2024 8:17pm Ondansetron 4mg/2ml (ZOFRAN) injection 4 mg (1 source) Start: 09-27-2023 End: 09-29-2023 take 4 mg intravenously every six hours as needed Ondansetron 4mg/2ml (ZOFRAN) injection 4 mg oxyCODONE hydrochloride 5 mg oral tablet (12 sources) Opioid Agonist Start: 10-16-2018 End: 11-28-2018 take 1 tablet by mouth every six hours as needed for pain Oxycodone 5 MG tablet Discontinued 5 mg PO EVERY 6 HOURS NEEDED as needed for Severe Pain (6-05/02) 30 7 0 November 21, 2018 8:31pm November 27, 2018 12:00am November 28, 2018 12:06am Intractable low back pain Low back pain pantoprazole 40 mg delayed release oral tablet (13 sources) Proton Pump Inhibitor Start: 09-27-2023 End: 09-29-2023 take 40 mg by mouth once daily 40 mg, Oral, DAILY, First dose on Mon09/27/23 at 0900, Until Discontinued, Swallow whole; do not crush or chew., Indications: Continuation of Home Therapy, GERD Start: 10-16-2018 End: 11-21-2018 take 1 tablet by mouth once daily Pantoprazole 20 MG tablet Discontinued 20 mg PO DAILY@0800 October 16, 2018 6:49pm November 21, 2018 8:30pm 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 health 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 Polyethylene glycol (MIRALAX) packet 17 g (1 source) Start: 09-27-2023 End: 09-29-2023 Polyethylene glycol (MIRALAX) packet 17 g polyethylene glycol 3350 [id number] mg / potassium chloride 2970 mg / sodium bicarbonate 6740 mg / sodium chloride 5860 mg / sodium sulfate 30259 mg powder for oral solution (1 source) [...] 8.6 mg sertraline 50 mg oral tablet (12 sources) Serotonin Reuptake Inhibitor Start: 12-04-2020 End: [...] 133 mL, RECTAL, ONCE, 1 dose, On Mon05/13/24 at 0800, FOR RECTAL USE, Preprocedure Start: 05-13-2024 End: 05-13-2024 take 1 dose rectal route once 133 mL, RECTAL, ONCE, 1 dose, On Mon05/13/24 at 0800, FOR RECTAL USE, Preprocedure tiZANidine [...] Date Documented Da te Episodic/Chronic Abdominal pain (5 sources) Right inguinal pain; Translations: [Right lower quadrant pain] 11-01-2023 Episodic Acute cerebrovascular disease (5 sources) Cerebrovascular accident; Translations: [Cerebral infarction, unspecified] [...] prostate; Translations: [Malignant neoplasm of prostate] Onset: 4 Chronic Cardiac and circulatory congenital anomalies (10 sources) Venous malformation; Translations: [Other malformations of cerebral vessels] Onset: 4 09-28-2023 Chronic Conditions associated with dizziness or vertigo (6 sources) Dizziness; Translations: [Dizziness and giddiness] Onset: 5 10-17-2023 Episodic Disorders of teeth and jaw (4 sources) Abscess of hard palate; Translations: [Inflammatory conditions of jaws] 11-05-2024 Episodic Diverticulosis and diverticulitis (20 sources) Diverticulitis; Translations: [Diverticulitis of intestine, part unspecified, without perforation or abscess without bleeding] Onset: 4 04-30-2024 Chronic Esophageal disorders (17 sources) Gastroesophageal reflux disease; Translations: [Gastro-esophageal reflux disease without esophagitis] Chronic Fluid and electrolyte disorders (6 sources) Hyponatremia; Translations: [Hypo-osmolality and hyponatremia] 12-04-2020 Episodic Fracture of upper limb (18 sources) Fracture of humerus ; Translations: [Unspecified [...] [Acute prostatitis] 04-12-2023 Episodic Malaise and fatigue (16 sources) Asthenia; Translations: [Other malaise] Onset: 5 11-02-2018 Episodic Mood disorders (20 sources) Depressive disorder; Translations: [Depression] Onset: 4 Chronic Mycoses (6 sources) Candidiasis of mouth; Translations: [Candidal stomatitis] [...] unspecified] 06-09-2024 Chronic Other connective tissue disease (6 sources) Spasm; Translations: [Other muscle spasm] 12-04-2020 Episodic Other ear and sense organ disorders (6 sources) Bilateral objective tinnitus of ears; Translations: [...] cerumen, bilateral; Translations: [Bilateral impacted cerumen] Onset: 5 Episodic Other liver diseases (6 sources) Elevated liver enzymes level; Translations: [Abnormal levels of other serum enzymes] 12-04-2020 Episodic Other lower respiratory disease (12 sources) Dyspnea; Translations: [Shortness of breath] 12-04-2020 Episodic Other lower respiratory disease (2 sources) Orthopnea; Translations: [Orthopnea] 03-28-2025 Episodic Other lower respiratory disease (1 source) Orthopnea; Translations: [Orthopnea] Onset: 5 Episodic Other male genital disorders (2 sources) [...] left shoulder] Episodic Other non-traumatic joint disorders (10 sources) Pain in left shoulder; Translations: [Acute pain of left shoulder due to trauma] 11-02-2018 Episodic Other non-traumatic joint disorders (5 sources) Pain in right shoulder; Translations: [Right [...] 5 Chronic Otitis media and related conditions (2 sources) Dysfunction of eustachian tube; Translations: [Unspecified Eustachian tube disorder, bilateral] 01-29-2025 Episodic Paralysis (20 sources) Cerebral palsy; Translations: [Cerebral palsy, unspecified] Onset: 1 04-16-2021 Chronic Residual codes; unclassified (20 sources) Sleep apnea; Translations: [Sleep apnea, unspecified] Onset: 9 01-05-2018 Chronic Residual codes; unclassified (10 sources) Obstructive sleep apnea syndrome; Translations: [Obstructive sleep apnea (adult) (pediatric)] Chronic Residual codes; unclassified (1 source) Obstructive sleep apnea (adult) (pediatric); Translations: [Obstructive sleep apnea syndrome] Onset: Chronic Residual codes; unclassified (13 sources) Tobacco user; Translations: [Tobacco use] 11-28-2020 [...] Confusional state; Translations: [Disorientation, unspecified] 06-03-2024 Episodic Spondylosis; intervertebral disc disorders; other back problems (20 sources) Sacroiliac disorder; Translations: [Sacrococcygeal disorders, not elsewhere classified] Onset: 9 04-17-2009 Episodic Sprains and strains (2 sources) Sprain [...] (20 sources) Hypothyroidism; Translations: [Hypothyroidism, unspecified] Onset: 09-07-2015 Chronic Unclassified (6 sources) Multilevel spinal canal stenosis 11-02-2018 Unclassified (6 sources) Alcohol withdrawal delirium, acute, mixed level of activity 11-28-2020 Past or Other Problems Problem Classification Problem Date Documented Da te Episodic/Chronic Diseases of mouth; excluding dental (5 sources) Painful mouth; Translations: [Other lesions of oral mucosa] Onset: 11-08-2024 11-05-2024 Episodic Fracture of lower limb (12 sources) Closed fracture of upper end of [...] amnesia; Translations: [Memory changes] Onset: 04-17-2024 Episodic Unclassified (1 source) Onset: 09-29-2023 09-29-2023 Viral infection (2 sources) Viral disease; Translations: [Viral infection, unspecified] Onset: 12-25-2024 12-25-2024 Episodic Results Test Name Value Interpretation Reference Range Facility Alcohol, Blood (Medical)-Ser on 04-07-2025 SERUM ETOH 61.0 mg/dL High <=10.0 [facility] Comment on above: Result Comment: This test is for medical purposes only. The legal definition of intoxication varies according to local law. Performed By: #### L 505.5000, L501.5200, L501.2450, L501.9100, L100.0100, L500.2500, L500.3400 #### [facility] [address] [place], [place], [id number] Amphetamine detection with 1 000 ng/mL as cutoffOrdered By: Jj Koch on 04-07-2025 Amphetamines Screen method >1000 ng/mL Ql (U) Negative < 200 ng/mL [facility] Basic Metabolic Profile (BMP )on 04-07-2025 BUN/CRE 13.3 RATIO Normal 10-20 [facility] Comment on above: Performed By: #### L 505.5000, L501.5200, L501.2450, L501.9100, L100.0100, L500.2500, L500.3400 #### [facility] [address] [place], [place], [id number] Calcium [Mass/Vol] 9.4 mg/dL Normal 7.6-11.0 [facility] Comment on above: Performed By: #### L 505.5000, L501.5200, L501.2450, L501.9100, L100.0100, L500.2500, L500.3400 #### [facility] [address] [place], [address] Chloride [Moles/Vol] 92 mmol/L Low 98-108 [facility] Comment on above: Performed By: #### L 505.5000, L501.5200, L501.2450, L501.9100, L100.0100, L500.2500, L500.3400 #### [facility] [address] [place], [address] CO2 [Moles/Vol] 20.7 mmol/L Low 21.0-32.0 [facility] Comment on above: Performed By: #### L 505.5000, L501.5200, L501.2450, L501.9100, L100.0100, L500.2500, L500.3400 #### [facility] [address] [place], [address] Creatinine [Mass/Vol] 0.80 mg/dL Normal 0.70-1.20 [facility] Comment on above: Performed By: #### L 505.5000, L501.5200, L501.2450, L501.9100, L100.0100, L500.2500, L500.3400 #### [facility] [address] [place], [address] ECRCL 110.46 ml/min Normal 50-250 [facility] Comment on above: Performed By: #### L 505.5000, L501.5200, L501.2450, L501.9100, L100.0100, L500.2500, L500.3400 #### [facility] [address] [place], [address] GAP 21 High 5-15 [facility] Comment on above: Performed By: #### L 505.5000, L501.5200, L501.2450, L501.9100, L100.0100, L500.2500, L500.3400 #### [facility] [address] [place], [address] GFR/1.73 sq M.predicted among non-blacks MDRD (S/P/Bld) [Vol rate/Area] 103 mL/min/{1.73_m2} Normal >60 [facility] Comment on above: Result Comment: mL/m in/1.73m2 CKD-EPI Creatinine Equation (2020) Performed By: #### L 505.5000, L501.5200, L501.2450, L501.9100, L100.0100, L500.2500, L500.3400 #### [facility] [address] [place], [address] Glucose [Mass/Vol] 95 mg/dL Normal 70-99 [facility] Comment on above: Performed By: #### L 505.5000, L501.5200, L501.2450, L501.9100, L100.0100, L500.2500, L500.3400 #### [facility] [address] [place], [address] Potassium [Moles/Vol] 4.0 mmol/L Normal 3.3-5.1 [facility] Comment on above: Performed By: #### L 505.5000, L501.5200, L501.2450, L501.9100, L100.0100, L500.2500, L500.3400 #### [facility] [address] [place], [address] Sodium [Moles/Vol] 134 mmol/L Normal 133-145 [facility] Comment on above: Performed By: #### L 505.5000, L501.5200, L501.2450, L501.9100, L100.0100, L500.2500, L500.3400 #### [facility] [address] [place], [address] Urea nitrogen [Mass/Vol] 11 mg/dL Normal 4-19 [facility] Comment on above: Performed By: #### L 505.5000, L501.5200, L501.2450, L501.9100, L100.0100, L500.2500, L500.3400 #### [facility] [address] [place], [address] Emergency Department Summary on 04-07-2025 Emergency Department Summary [facility] Medical Records Department [address] [place] [address] Emergency Department Summary 04/07/25 MR#: [id number] Acct: [id number] Name: GOOD DE LUNA Rep #: [id number] : [id number] From: Jj Koch DO PCP: Dr. Mathew Cobian MD Status:REG ER Location: ED HPI History of Present Illness Chief Complaint: ETOH Intox Informant: patient Narrative Narrative: Patient is a 59-year-old male with past medical history of anxiety as well as GERD and hypothyroidism. He states he recently broke up with his girlfriend and his anxiety has worsened since that time. He states he has been drinking roughly 1/3 a bottle of bourbon daily for the last 7 days. He states that at baseline he does not drink daily. He states he may have a glass of liquor or a few beers over the weekend but is adamant that he does not drink on a daily basis. He states his last drink was roughly 10 hours prior to arrival. He denies any homicidal or suicidal ideation but he reports that despite drinking his anxiety has been elevated and secondary to this comes in for evaluation [facility] Medical History Alcohol abuse Anxiety History [...] tab PO DAILY 02/27/22 04/22/24 H istory levothyroxine 150 mcg tablet 150 mcg PO DAILY 11/05/24 Unknown History Allergy/AdvReac Type Severity Reaction Status Date / Time No Known Allergies Allergy Verified 04/06/25 22:18 Family History Other Cancer Diabetes Surgical History History of tonsillectomy H/O hand surgery Social History household members: other details: Roommate who does not help him cook or clean. Smoking Status: Former smoker alcohol intake: current alcohol intake frequency: 3 or more drinks per day Alcohol type: hard liquor ROS ROS ED Constitutional Constitutional ED: Denies chills or fever(s) Eyes Eyes: Denies change in vision ENT ENT ED: Denies sore throat Cardiovascular Cardiovascular: Denies chest pain Respiratory/Chest Respiratory/Chest: Denies cough or dyspnea Gastrointestinal Gastrointestinal: Reports nausea; Denies abdominal pain, diarrhea or vomiting Genitourinary Genitourinary ED: Denies dysuria Musculoskeletal Musculoskeletal: Denies myalgias Integumentary Denies rash Neurologic Neurologic: Denies headache(s) Psychiatric Psychiatric: Reports anxiety; Denies suicidal ideation or suicidal thoughts Hematologic/Lymphatic Hematologic/Lymphatic: Denies easy bleeding or easy bruising EXAM Physical Exam Const Vital Signs: 04/06/25 22:14 04/07/25 00:13 Temperature 98.2 F 98.1 F Temperature Source Oral Oral Pulse Rate 56 L 76 Respiratory Rate 16 16 Blood Pressure 129/81 H 130/77 H Blood Pressure Mean 97 94 Pulse Ox 97 98 Oxygen Delivery Method Room Air Room Air Positive well nourished, well developed and obese General Appearance ED: well developed; Negative for pallor Nutritional Appearance: obese HEENT Reports moist mucous membranes HEENT Narrative: Normocephalic atraumatic No tongue or cheek biting to suggest seizure activity No tongue or lip swelling no oral lesions no airway edema or compromise; no secondary findings in the posterior pharynx to suggest infection Eyes PERRL and EOMs intact bilaterally Eyes Narrative: There is mild scleral injection bilaterally consistent with history of alcohol use Pupils lower are equal reactive to light and accommodation Neck supple Resp normal respiratory effort and clear to auscultation bilaterally Cardio regular rate and regular rhythm GI non-tender, non-distended and no masses GI Narrative: Abdomen is soft nontender and nondistended with hyperactive bowel sounds. No voluntary guarding or rigidity or pulsatile mass Auscultation: hyperactive bowel sounds Palpation: soft Extremity normal to inspection Neuro oriented x3, CN's II-XII intact bilaterally and no sensory deficits noted Sensorium / Orientat (more content not included)... Normal [facility] Lipaseon 04-07-2025 Lipase [Catalytic activity/Vol] 29 U/L Normal 13-75 [facility] Comment on above: Result Comment: Ricki summers note: LIPASE revised reference range effective 22. New Lipase methodology. Expected to produce lower values than the previous assay method. NEW Reference Range: 13 - 75 U/L Performed By: #### L 505.5000, L501.5200, L501.2450, L501.9100, L100.0100, L500.2500, L500.3400 #### [facility] [address] [place], [address] Liver Profileon 04-07-2025 Albumin [Mass/Vol] 4.4 g/dL Normal 3.5-5.0 [facility] Comment on above: Performed By: #### L 505.5000, L501.5200, L501.2450, L501.9100, L100.0100, L500.2500, L500.3400 #### [facility] [address] [place], [address] ALK PHOS 100 U/L Normal 40-129 [facility] Comment on above: Performed By: #### L 505.5000, L501.5200, L501.2450, L501.9100, L100.0100, L500.2500, L500.3400 #### [facility] [address] [place], [address] ALT [Catalytic activity/Vol] 37 U/L Normal <=46 [facility] Comment on above: Performed By: #### L 505.5000, L501.5200, L501.2450, L501.9100, L100.0100, L500.2500, L500.3400 #### [facility] [address] [place], [address] AST [Catalytic activity/Vol] 34 U/L Normal <=37 [facility] Comment on above: Performed By: #### L 505.5000, L501.5200, L501.2450, L501.9100, L100.0100, L500.2500, L500.3400 #### [facility] [address] [place], [address] Bilirubin [Mass/Vol] 0.61 mg/dL Normal 0.00-1.30 [facility] Comment on above: Performed By: #### L 505.5000, L501.5200, L501.2450, L501.9100, L100.0100, L500.2500, L500.3400 #### [facility] [address] [place], [address] Bilirubin.direct [Mass/Vol] 0.29 mg/dL Normal 0.00-0.30 [facility] Comment on above: Performed By: #### L 505.5000, L501.5200, L501.2450, L501.9100, L100.0100, L500.2500, L500.3400 #### [facility] [address] [place], [address] Globulin (S) [Mass/Vol] 3.1 g/dL Normal 2.2-4.2 [facility] Comment on above: Performed By: #### L 505.5000, L501.5200, L501.2450, L501.9100, L100.0100, L500.2500, L500.3400 #### [facility] [address] [place], [place], [address] T PROT 7.5 g/dL Normal 5.9-8.4 [facility] Comment on above: Performed By: #### L 505.5000, L501.5200, L501.2450, L501.9100, L100.0100, L500.2500, L500.3400 #### [facility] [address] [place], [address] Magnesiumon 04-07-2025 Magnesium [Mass/Vol] 1.9 mg/dL Normal 1.5-2.2 [facility] Comment on above: Performed By: #### L 505.5000, L501.5200, L501.2450, L501.9100, L100.0100, L500.2500, L500.3400 ####[facility] [address] [place], [address] No Panel InformationOrdered By: Jj Koch on 04-07-2025 Urine Buprenorphine Qualitative Negative < 200 ng/mL [facility] Urine Oxycodone Screen Negative < 100 ng/mL [facility] Quantitative urine opiates m easurementOrdered By: Jj Koch on 04-07-2025 Opiates Ql (U) Negative < 300 ng/mL [facility] Screening urine fentanyl arleen surementOrdered By: Jj Koch on 04-07-2025 fentaNYL Screen Ql (U) Negative <5 ng/mL [facility] Comment on above: CONFIRMATORY TESTING FOR ALL POSITIVE URINE DRUG SCREENRESULTS WILL ONLY BE SENT OUT UPON PHYSICIAN ORDER. Ilene Pro Urine Drug Screen methods provide only preliminaryanalytical test results. A more specific alternate chemicalmethod must be used in order to obtain a confirmedanalytical result. Gas chromatography/mass spectrometery(GC/MS) is the preferred confirmatory method. Clinicalconsideration and professional judgement should be appliedto any drug of abuse test result, particularly whenpreliminary positive results are used. Urine TCA testing must be ordered separately. Use test mnemonic: [facility] Urine Drug Screen (VISTA)on 04-07-2025 AMPHETAMINES Negative Normal <1000 ng/mL [facility] Comment on above: Performed By: #### L 505.5000, L501.5200, L501.2450, L501.9100, L100.0100, L500.2500, L500.3400 ####[facility] [address] [place], [address] BARBITIURATES Negative Normal < 200 ng/mL [facility] Comment on above: Performed By: #### L 505.5000, L501.5200, L501.2450, L501.9100, L100.0100, L500.2500, L500.3400 ####[facility] [address] [place], [address] BENZODIAZIPINE Positive Normal < 200 ng/mL [facility] Comment on above: Result Comment: If c onfirmation testing is needed, a separate order will be required to send out testing to the reference laboratory. Performed By: #### L 505.5000, L501.5200, L501.2450, L501.9100, L100.0100, L500.2500, L500.3400 ####[facility] [address] [place], [address] BUP Ur Drug Scr Negative Normal < 200 ng/mL [facility] Comment on above: Performed By: #### L 505.5000, L501.5200, L501.2450, L501.9100, L100.0100, L500.2500, L500.3400 ####[facility] [address] [place], [place], [id number] COCAINE Negative Normal < 300 ng/mL [facility] Comment on above: Performed By: #### L 505.5000, L501.5200, L501.2450, L501.9100, L100.0100, L500.2500, L500.3400 ####[facility] [address] [place], [place], [phone]) Fentanyl Negative Normal <5 ng/mL [facility] Comment on above: Result Comment: CONF IRMATORY TESTING FOR ALL POSITIVE URINE DRUG SCREEN RESULTS WILL ONLY BE SENT OUT UPON PHYSICIAN ORDER. Ilene Pro Urine Drug Screen methods provide only preliminary analytical test results. A more specific alternate chemical method must be used in order to obtain a confirmed analytical result. Gas chromatography/mass spectrometery (GC/MS) is the preferred confirmatory method. Clinical consideration and professional judgement should be applied to any drug of abuse test result, particularly when preliminary positive results are used. Urine TCA testing must be ordered separately. Use test mnemonic: [facility] Performed By: #### L 505.5000, L501.5200, L501.2450, L501.9100, L100.0100, L500.2500, L500.3400 ####[facility] [address] [place] [id number] METHADONE Negative Normal < 300 ng/mL [facility] Comment on above: Performed By: #### L 505.5000, L501.5200, L501.2450, L501.9100, L100.0100, L500.2500, L500.3400 ####[facility] [address] [place] [address] OPIATES Negative Normal < 300 ng/mL [facility] Comment on above: Performed By: #### L 505.5000, L501.5200, L501.2450, L501.9100, L100.0100, L500.2500, L500.3400 ####[facility] [address] [place] [phone] OXYCODONE Negative Normal < 100 ng/mL [facility] Comment on above: Performed By: #### L 505.5000, L501.5200, L501.2450, L501.9100, L100.0100, L500.2500, L500.3400 ####[facility] [address] [facility] [id number] PCP Negative Normal < 25 ng/mL [facility] Comment on above: Performed By: #### L 505.5000, L501.5200, L501.2450, L501.9100, L100.0100, L500.2500, L500.3400 ####[facility] [address] [place], [place], [id number] THC Negative Normal < 50 ng/mL [facility] Comment on above: Performed By: #### L 505.5000, L501.5200, L501.2450, L501.9100, L100.0100, L500.2500, L500.3400 ####[facility] [address] [place], [place], [phone] Urine benzodiazepine levelOr dered By: Jj Koch on 04-07-2025 Benzodiazepines Ql (U) Positive < 200 ng/mL [facility] Comment on above: If confirmation test ing is needed, a separate order will be required to send out testing to the reference laboratory. Urine cocaine levelOrdered B y: Jj Koch on 04-07-2025 Cocaine Ql (U) Negative < 300 ng/mL [facility] Urine qqkum-3-wffexiyaxutcvy abinol (THC) measurementOrdered By: Jj Koch on 04-07-2025 Cannabinoids Screen Ql (U) Negative < 50 ng/mL [facility] Urine phencyclidine (PCP) de tectionOrdered By: Jj Koch on 04-07-2025 Phencyclidine Ql (U) Negative < 25 ng/mL [facility] Absolute lymphocyte countOrd ered By: Jj Koch on 04-06-2025 Lymphocytes Auto (Unsp spec) [#/Vol] 1.43 10*3/uL 0.83-4.51 [facility] Absolute neutrophil countOrd ered By: Jj Koch on 04-06-2025 Neutrophils (Bld) [#/Vol] 7.2 10*3/uL 2.0-7.7 [facility] Anion gap in Serum or Plasma Ordered By: Jj Koch on 04-06-2025 Anion gap [Moles/Vol] 21 mmol/L High 5-15 [facility] Automated lymphocyte count a s percentage of total leukocytesOrdered By: Jj Koch on 04-06-2025 Lymphocytes/100 WBC Auto (Unsp spec) 15.2 % Low 19-41 [facility] BUN/creatinine ratioOrdered By: Jj Koch on 04-06-2025 Urea nitrogen/Creatinine [Mass ratio] 13.3 mg/mg 10-20 [facility] Basophil percentageOrdered B y: Jj Koch on 04-06-2025 Basophils/100 WBC (Bld) 0.3 % 0-1 [facility] Bilirubin directOrdered By: Jj Koch on 04-06-2025 Bilirubin.direct [Mass/Vol] 0.29 mg/dL 0.00-0.30 [facility] Bilirubin, totalOrdered By: Jj Koch on 04-06-2025 Bilirubin [Mass/Vol] 0.61 mg/dL 0.00-1.30 [facility] CBC W/Diff, Automatedon 03-24 Absolute Lymph 1.43 X10 3/uL Normal 0.83-4.51 [facility] Comment on above: Performed By: #### L 505.5000, L501.5200, L501.2450, L501.9100, L100.0100, L500.2500, L500.3400 #### [facility] [address] [place], [address] Absolute Neut 7.2 X10 3/uL Normal 2.0-7.7 [facility] Comment on above: Performed By: #### L 505.5000, L501.5200, L501.2450, L501.9100, L100.0100, L500.2500, L500.3400 #### [facility] [address] [place], [address] Basophils/100 WBC (Bld) 0.3 % Normal 0-1 [facility] Comment on above: Performed By: #### L 505.5000, L501.5200, L501.2450, L501.9100, L100.0100, L500.2500, L500.3400 #### [facility] [address] [place], [address] Eosinophils/100 WBC (Bld) 0.2 % Normal 0-5 [facility] Comment on above: Performed By: #### L 505.5000, L501.5200, L501.2450, L501.9100, L100.0100, L500.2500, L500.3400 #### [facility] [address] [place], [address] Erythrocyte distribution width (RBC) [Ratio] 14.5 % Normal 11.6-14.6 [facility] Comment on above: Performed By: #### L 505.5000, L501.5200, L501.2450, L501.9100, L100.0100, L500.2500, L500.3400 #### [facility] [address] [facility] [place], [address] Hematocrit (Bld) [Volume fraction] 42.0 % Normal 40-54 [facility] Comment on above: Performed By: #### L 505.5000, L501.5200, L501.2450, L501.9100, L100.0100, L500.2500, L500.3400 #### [facility] [address] [facility] [place], [address] Hemoglobin (Bld) [Mass/Vol] 14.7 g/dL Normal 13.0-16.5 [facility] Comment on above: Performed By: #### L 505.5000, L501.5200, L501.2450, L501.9100, L100.0100, L500.2500, L500.3400 #### [facility] [address] [facility] [place], [address] IG% 0.300 Normal 0.0-0.9 [facility] Comment on above: Result Comment: IG% - Immature Granulocytes (promyelocytes, myelocytes and metamyelocytes) > 1% indicates that a LEFT SHIFT is Present. Performed By: #### L 505.5000, L501.5200, L501.2450, L501.9100, L100.0100, L500.2500, L500.3400 #### [facility] [address] [place], [address] Lymphocytes/100 WBC (Bld) 15.2 % Low 19-41 [facility] Comment on above: Performed By: #### L 505.5000, L501.5200, L501.2450, L501.9100, L100.0100, L500.2500, L500.3400 #### [facility] [address] [place], [address] MCH (RBC) [Entitic mass] 30.6 pg Normal 27.0-32.0 [facility] Comment on above: Performed By: #### L 505.5000, L501.5200, L501.2450, L501.9100, L100.0100, L500.2500, L500.3400 #### [facility] [address] [place], [address] MCHC (RBC) [Mass/Vol] 35.0 g/dL Normal 32-36 [facility] Comment on above: Performed By: #### L 505.5000, L501.5200, L501.2450, L501.9100, L100.0100, L500.2500, L500.3400 #### [facility] [address] [place], [address] MCV (RBC) [Entitic vol] 87.5 fL Normal 80-94 [facility] Comment on above: Performed By: #### L 505.5000, L501.5200, L501.2450, L501.9100, L100.0100, L500.2500, L500.3400 #### [facility] [address] [place], [address] Monocytes/100 WBC (Bld) 7.2 % Normal 0-10 [facility] Comment on above: Performed By: #### L 505.5000, L501.5200, L501.2450, L501.9100, L100.0100, L500.2500, L500.3400 #### [facility] [address] [place], [address] Neutrophils/100 WBC (Bld) 76.8 % High 47-70 [facility] Comment on above: Performed By: #### L 505.5000, L501.5200, L501.2450, L501.9100, L100.0100, L500.2500, L500.3400 #### [facility] [address] [place], [address] Nucleated RBC (Bld) [#/Vol] 0 10*3/uL Normal 0-5 [facility] Comment on above: Performed By: #### L 505.5000, L501.5200, L501.2450, L501.9100, L100.0100, L500.2500, L500.3400 #### [facility] [address] [place], [address] Platelet mean volume (Bld) [Entitic vol] 10.0 fL Normal 6.2-12.0 [facility] Comment on above: Performed By: #### L 505.5000, L501.5200, L501.2450, L501.9100, L100.0100, L500.2500, L500.3400 #### [facility] [address] [place], [address] Platelets (Bld) [#/Vol] 289 10*3/uL Normal 150-450 [facility] Comment on above: Performed By: #### L 505.5000, L501.5200, L501.2450, L501.9100, L100.0100, L500.2500, L500.3400 #### [facility] [address] [place], [address] RBC (Bld) [#/Vol] 4.80 10*6/uL Normal 4.6-6.2 [facility] Comment on above: Performed By: #### L 505.5000, L501.5200, L501.2450, L501.9100, L100.0100, L500.2500, L500.3400 #### [facility] [address] [place], [address] RDW SD 46.5 fl High 35.1-43.9 [facility] Comment on above: Performed By: #### L 505.5000, L501.5200, L501.2450, L501.9100, L100.0100, L500.2500, L500.3400 #### [facility] [address] [place], [address] WBC (Bld) [#/Vol] 9.4 10*3/uL Normal 4.4-11.0 [facility] Comment on above: Performed By: #### L 505.5000, L501.5200, L501.2450, L501.9100, L100.0100, L500.2500, L500.3400 #### [facility] [address] [place], [address] Carbon dioxide, total [Moles /volume] in Central venous bloodOrdered By: Jj Koch on 04-06-2025 CO2 [Moles/Vol] 20.7 mmol/L Low 21.0-32.0 [facility] Chloride assayOrdered By: Ramona Koch on 04-06-2025 Chloride [Moles/Vol] 92 mmol/L Low 98-108 [facility] Eosinophil percentageOrdered By: Jj Koch on 04-06-2025 Eosinophils/100 WBC (Bld) 0.2 % 0-5 [facility] Erythrocyte distribution wid th ratioOrdered By: Jj Koch on 04-06-2025 Erythrocyte distribution width (RBC) [Ratio] 14.5 % 11.6-14.6 [facility] Erythrocyte distribution wid th standard deviationOrdered By: Jj Koch on 04-06-2025 Erythrocyte distribution width (RBC) [Ratio] 46.5 fl High 35.1-43.9 [facility] Glomerular filtration rate ( GFR) estimation/1.73 sq m using serum, plasma, or whole bOrdered By: Jj Koch on 04-06-2025 GFR/1.73 sq M.predicted among non-blacks MDRD (S/P/Bld) [Vol rate/Area] 103 mL/min/{1.73_m2} >60 [facility] Comment on above: mL/min/1.73m2 CKD-EP I Creatinine Equation (2020) Hematocrit Auto (Bld) [Volum e fraction]Ordered By: Jj Koch on 04-06-2025 Hematocrit (Bld) [Volume fraction] 42.0 % 40-54 [facility] Hemoglobin measurementOrdere d By: Jj Koch on 04-06-2025 Hemoglobin (Bld) [Mass/Vol] 14.7 g/dL 13.0-16.5 [facility] Immature granulocytes/100 WB C Auto (Bld)Ordered By: Jj Koch on 04-06-2025 Immature granulocytes/100 WBC (Bld) 0.300 % 0.0-0.9 [facility] Comment on above: IG% - Immature Granu locytes (promyelocytes, myelocytes and metamyelocytes) > 1% indicates that a LEFT SHIFT is Present. Laboratory - Chemistry and C hemistry - challengeOrdered By: Jj Koch on 04-06-2025 AST [Catalytic activity/Vol] 34 U/L <38 [facility] Lipase measurementOrdered By : Jj Koch on 04-06-2025 Lipase [Catalytic activity/Vol] 29 U/L 13-75 [facility] Comment on above: Please note:LIPASE r evised reference range effective 22. New Lipase methodology. Expected to produce lower values than the previous assay method. NEW Reference Range: 13 - 75 U/L MCV (mean corpuscular volume ) determinationOrdered By: Jj Koch on 04-06-2025 MCV (RBC) [Entitic vol] 87.5 fL 80-94 [facility] Magnesium measurement (mass/ volume)Ordered By: Jj Koch on 04-06-2025 Magnesium (Unsp spec) [Mass/Vol] 1.9 mg/dL 1.5-2.2 [facility] Mean corpuscular hemoglobin (MCH) determinationOrdered By: Jj Koch on 04-06-2025 MCH (RBC) [Entitic mass] 30.6 pg 27.0-32.0 [facility] Mean corpuscular hemoglobin concentration (MCHC) determinationOrdered By: Jj Koch on 04-06-2025 MCHC (RBC) [Mass/Vol] 35.0 g/dL 32-36 [facility] Mean platelet volume determi nationOrdered By: Jj Koch on 04-06-2025 Platelet mean volume (Bld) [Entitic vol] 10.0 fL 6.2-12.0 [facility] Monocyte percentageOrdered B y: Jj Koch on 04-06-2025 Monocytes/100 WBC (Bld) 7.2 % 0-10 [facility] Neutrophil percentageOrdered By: Jj Koch on 04-06-2025 Neutrophils/100 WBC (Bld) 76.8 % High 47-70 [facility] Nucleated red blood cell per centageOrdered By: Jj Koch on 04-06-2025 Nucleated RBC/100 WBC (Bld) [Ratio] 0 % 0-5 [facility] Platelet countOrdered By: Ramona Koch on 04-06-2025 Platelets (Bld) [#/Vol] 289 10*3/uL 150-450 [facility] Potassium measurement (mass/ volume)Ordered By: Jj Koch on 04-06-2025 Potassium (Unsp spec) [Mass/Vol] 4.0 mmol/L 3.3-5.1 [facility] RBC Auto (Bld) [#/Vol]Ordere d By: Jj Koch on 04-06-2025 RBC (Bld) [#/Vol] 4.80 10*6/uL 4.6-6.2 [facility] Serum creatinine measurement (mass/volume)Ordered By: Jj Koch on 04-06-2025 Creatinine [Mass/Vol] 0.80 mg/dL 0.70-1.20 [facility] Serum globulin measurementOr dered By: Jj Koch on 04-06-2025 Globulin (S) [Mass/Vol] 3.1 g/dL 2.2-4.2 [facility] Serum glucose measurement (m ass/volume)Ordered By: Jj Koch on 04-06-2025 Glucose [Mass/Vol] 95 mg/dL 70-99 [facility] Serum or plasma alanine finnegan otransferase (ALT) measurementOrdered By: Jj Koch on 04-06-2025 ALT [Catalytic activity/Vol] 37 U/L <47 [facility] Serum or plasma albumin micheal urement (mass/volume)Ordered By: Jj Koch on 04-06-2025 Albumin [Mass/Vol] 4.4 g/dL 3.5-5.0 [facility] Serum or plasma alkaline marco a sphatase measurementOrdered By: Jj Koch on 04-06-2025 ALP [Catalytic activity/Vol] 100 U/L 40-129 [facility] Serum or plasma calcium micheal urement (mass/volume)Ordered By: Jj Koch on 04-06-2025 Calcium [Mass/Vol] 9.4 mg/dL 7.6-11.0 [facility] Serum or plasma ethanol micheal urement (mass/volume)Ordered By: Jj Koch on 04-06-2025 Ethanol [Mass/Vol] 61.0 mg/dL High <10.1 [facility] Comment on above: This test is for med ical purposes only. The legal definition of intoxication varies according to local law. Serum or plasma urea nitroge n measurement (mass/volume)Ordered By: Jj Koch on 04-06-2025 Urea nitrogen [Mass/Vol] 11 mg/dL 4-19 [facility] Sodium levelOrdered By: Castro Koch on 04-06-2025 Sodium [Moles/Vol] 134 mmol/L 133-145 [facility] Total proteinOrdered By: Seng Koch on 04-06-2025 Protein [Mass/Vol] 7.5 g/dL 5.9-8.4 [facility] White blood cell (WBC) count Ordered By: Jj Koch on 04-06-2025 WBC (Bld) [#/Vol] 9.4 10*3/uL 4.4-11.0 Ana Luisa [facility] PATTIEAntonieta [facility]-2025 [facility] [place] ([id number]) 1965 M Date Time Provider Department 04/03/25 MATHEW COBIAN [facility] During your visit today, we recorded the following information about you: Laura Whaley MA 04/03/2025 9:43 AM Signed Office received fax from [employer] asking up updated order on pressure for pt CPAP. Pt is using [employer] for his CPAP supplies. This has been faxed back to [employer] notifying them of this information. Laura Whaley [...] Encounter Status:Closed by LAURA WHALEY on 04/03/25 [facility] CNOVon 03-28-2025 CNOV Office Visit (FAMPWS ) -- GOOD [place] ([id number]) 1965 M Date Time Provider Department 03/28/25 10:40 AM INO ESQUEDA During your visit today, we recorded the following information about you: Pulse Blood pressure 72/minute 107/69 Ino Esqueda APRN.[employer] MEDIA SPECIALIST 03/28/2025 10:56 AM Signed Chief Complaint Patient [...] of debrox 3 times weekly. Ino Esqueda APRN.HIGH SCHOOL [employer] MEDIA SPECIALIST [1] Social History Tobacco Use Smoking status: [...] Allergies As (more content not included)... Normal [facility] XR CHEST 2V FRONTAL/LATon XR CHEST [...] thorax intact. IMPRESSION: No acute radiographic abnormality. [place] Hand: MARTIN Transcribe Date/Time: Mar 28 2025 12:20P Dictated by : MAREK CABALLERO MD This examination was interpreted and the report reviewed and electronically signed by: MAREK CABALLERO MD on Mar 28 2025 12:21PM EST [id number] Normal [facility] XR Chest PA and Lateralon IMPRESSION: No acute radiographic abnormality. [place] Hand: MARTIN Transcribe Date/Time: Mar 28 2025 12:20P Dictated [...] Bony thorax intact. DIVISION OF RADIOLOGY [facility]25 * * *Final Report* * [...] intact. IMPRESSION IMPRESSION: No acute radiographic abnormality. [place] Hand: MARTIN Transcribe Date/Time: Mar 28 2025 12:20P Dictated by : MAREK CABALLERO MD This examination was interpreted and the report reviewed and electronically signed by: MAREK CABALLERO MD on Mar 28 2025 12:21PM [facility] Radiology Study observation (narrative) [facility] XR Chest PA and LateralOrder ed By: Ccf Provider on 03-28-2025 [facility] CNOVon 03-18-2025 CNOV Office Visit (FAMPWS ) -- [place] ([id number]) 1965 M Date Time Provider Department 03/18/25 12:00 PM INO ESQUEDA During your visit today, we recorded the following information about you: Pulse Blood pressure Weight 56/minute 110/66 96 kg Ino Esqueda APRN.[employer] MEDIA SPECIALIST 03/18/2025 11:59 AM Signed Chief Complaint Patient [...] with improved symptoms. Continue CPAP. Ino Esqueda, RETAIL SALES SPECIALIST.H[employer] MEDIA SPECIALIST [1] Social History Tobacco Use Smoking status: [...] as o (more content not included)... Normal [facility] 03-14-2025 CNPN Telephone (FAMWS) -- [place] ([id number]) 1965 M Date Time Provider Department 03/14/25 MATHEW COBIAN [facility] During your visit today, we recorded the following information about you: Laura Whaley MA 03/14/2025 2:04 PM Signed Office received fax from [employer] stating that they are unable to provide equipment for CPAP because pt is using [employer] for his JODEE supplies. [facility] Laura Whaley MA Allergies As of Date: [...] Encounter Status:Closed by LAURA [facility] [place] ([id number]) 1965 M Date Time Provider Department 03/14/25 [...] Pt should have appt to discuss JODEE. Virgilio requesting Office note within the last year [...] RN 03/19/2025 4:34 PM Signed Abhinav with [employer] calls to verify the setting of CPAP at 7. Faxed OV notes from appt yesterday as requested to [phone], Allergies As of Date: 03/14/2025 (No Known Allergies) Date Reviewed: 01/28/2025 Reviewed by: Margarita Ferrara MA - Fully Assessed Reason for Visit: Patient Question [8077] Prescriptions as of 03/19/2025 - carbamide peroxide [...] Rectal bleeding [K62.5] 05/12/2024 Encounter Status:Closed by GRASSBAUGH, HORTENCIA on 03/18/25 [facility] 01-29-2025 [facility] [place] ([id number]) 1965 M Date Time Provider Department 01/29/25 INO ESQUEDA [facility] During your visit today, we recorded [...] Please review and advise, REBA Lawrence Danielle, KALEB.[facility] 01/30/2025 6:55 PM Signed Please let patient [...] Encounter Status:Closed by RENARD LO on 01/30/25 [facility] Emergency Department Summary on 01-29-2025 Emergency Department Summary [facility] Medical Records Department [address] [place] [address] Emergency Department Summary 01/29/25 MR#: [id number] Acct: [id number] Name: GOOD DE LUNA Rep #: [id number] : 1965 59 From: Jj Koch DO [...] and therefore he comes in for evaluation. [facility] Medical History Alcohol abuse Anxiety History [...] noted Res (more content not included)... Normal [facility] CNOVon 01-28-2025 CNOV Office Visit (FAMPWS ) -- [place] ([id number]) 1965 M Date Time Provider Department 01/28/25 9:40 AM INO ESQUEDA During your visit today, we recorded the following information about you: Pulse Blood pressure Weight 65/minute 113/73 99 kg Ino Esqueda APRN.[facility] 01/28/2025 10:53 AM Addendum Chief Complaint Patient [...] NYSTATIN 100,000 UNIT/ML ORAL SUSPENSION Ino Esqueda, RETAIL SALES SPECIALIST.H[employer] S[employer]RARY MEDIA SPECIALIST Allergies As of Date: 01/28/2025 (No Known [...] and swallo (more content not included)... Normal [facility] CNOVon 01-27-2025 CNOV Office Visit (UCWSTR ) -- [place] ([id number]) 1965 M Date Time Provider Department 01/27/25 9:30 AM MEGA LOJA [facility] During your visit today, we recorded the [...] paperwork and care plan are available in MyChart. [facility] Procedures Allergies As of Date: 01/27/2025 (No Known Allergies) Date Reviewed: 01/27/2025 Reviewed by: Chuyita Loja MA - Fully Assessed Reason for Visit: Sore Throat [200] Cmt: swollen tongue x 1 day Primary Visit Diagnosis:Sore throat [J02.9] Other Visit Diagnosis:Allergic rhinitis, unspecified seasonality, unspecified trigger [J30.9] Order(s):STREP A MOLECULAR (POC) [6217094] Order #: [id number]. #:[id number] Prescriptions as of 01/27/2025 - fexofenadine [...] 05/12/2024 Level of Service: OFFICE/OUTPATIENT ESTABLISHED MOD [facility] 30 MIN [80349] Encounter Status:Closed by MEGA LOJA on 01/27/25 Normal [facility] STREP A MOLECULAR (POC)on Procedural Control Valid [facility] Strep A (POCT) Negative Negative [facility] Basic Metabolic Profile (BMP )on 01-21-2025 BUN/CRE 10.1 RATIO Normal 10-20 [facility] Comment on above: Performed By: #### L 501.5200, L500.2500 ####[facility] [address] [place], [address] Calcium [Mass/Vol] 8.7 mg/dL Normal 7.6-11.0 [facility] Comment on above: Performed By: #### L 501.5200, L500.2500 ####[facility] [address] [place], [address] Chloride [Moles/Vol] 102 mmol/L Normal 98-108 [facility] Comment on above: Performed By: #### L 501.5200, L500.2500 ####[facility] [address] [place], [address] CO2 [Moles/Vol] 23.0 mmol/L Normal 21.0-32.0 [facility] Comment on above: Performed By: #### L 501.5200, L500.2500 ####[facility] [address] [place], [address] Creatinine [Mass/Vol] 0.99 mg/dL Normal 0.70-1.20 [facility] Comment on above: Performed By: #### L 501.5200, L500.2500 ####[facility] [address] [place], [address] ECRCL 90.66 ml/min Normal 50-250 [facility] Comment on above: Performed By: #### L 501.5200, L500.2500 ####[facility] [address] [place], [address] GAP 11 Normal 5-15 [facility] Comment on above: Performed By: #### L 501.5200, L500.2500 ####[facility] [address] [place], [address] GFR/1.73 sq M.predicted among non-blacks MDRD (S/P/Bld) [Vol rate/Area] 89 mL/min/{1.73_m2} Normal >60 [facility] Comment on above: Result Comment: mL/m in/1.73m2 CKD-EPI Creatinine Equation (2020) Performed By: #### L 501.5200, L500.2500 ####[facility] [address] [place], [address] Glucose [Mass/Vol] 90 mg/dL Normal 70-99 [facility] Comment on above: Performed By: #### L 501.5200, L500.2500 ####[facility] [address] [place], [address] Potassium [Moles/Vol] 3.5 mmol/L Normal 3.3-5.1 [facility] Comment on above: Performed By: #### L 501.5200, L500.2500 ####[facility] [address] [place], [address] Sodium [Moles/Vol] 136 mmol/L Normal 133-145 [facility] Comment on above: Performed By: #### L 501.5200, L500.2500 ####[facility] [address] [place], [address] Urea nitrogen [Mass/Vol] 10 mg/dL Normal 4-19 [facility] Comment on above: Performed By: #### L 501.5200, L500.2500 ####[facility] [address] [place], [address] Brain/Head without Contrasto n 01-21-2025 Brain/Head without Contrast [facility] Imaging Services [address] [place] [address] Brain/Head without Contrast MR#: [id number] Acct: [id number] Name: GOOD [place] LUNA Rep #: [id number] : 1965 M 59 From: Shubham Nayak MD PCP: Dr. Mathew Cobian MD Status: REG ER Study: Brain/Head without Contrast Date of Exam: 08/17 Exam# [id number] Ordering Dr: Jj Koch DO PROCEDURE: BRAIN/HEAD [...] IMPRESSION: No acute intracranial findings. Reading Location: [place] [address] CC: Dr. Mathew Cobian MD; Jj Koch DO [place] Hand: Signed Normal [facility] CBC W/Diff, Automatedon 07-0 Absolute Lymph 1.45 X10 3/uL Normal 0.83-4.51 [facility] Comment on above: Performed By: #### L 100.0100 ####[facility] [address] [place], [address] Absolute Neut 6.5 X10 3/uL Normal 2.0-7.7 [facility] Comment on above: Performed By: #### L 100.0100 ####[facility] [address] [place], [address] Basophils/100 WBC (Bld) 0.2 % Normal 0-1 [facility] Comment on above: Performed By: #### L 100.0100 ####[facility] [address] [place], [address] Eosinophils/100 WBC (Bld) 1.6 % Normal 0-5 [facility] Comment on above: Performed By: #### L 100.0100 ####[facility] [address] [place], [address] Erythrocyte distribution width (RBC) [Ratio] 13.0 % Normal 11.6-14.6 [facility] Comment on above: Performed By: #### L 100.0100 ####[facility] [address] [place], [address] Hematocrit (Bld) [Volume fraction] 39.7 % Low 40-54 [facility] Comment on above: Performed By: #### L 100.0100 ####[facility] [address] [place], [address] Hemoglobin (Bld) [Mass/Vol] 13.2 g/dL Normal 13.0-16.5 [facility] Comment on above: Performed By: #### L 100.0100 ####[facility] [address] [place], [address] IG% 0.600 Normal 0.0-0.9 [facility] Comment on above: Result Comment: IG% - Immature Granulocytes (promyelocytes, myelocytes and metamyelocytes) > 1% indicates that a LEFT SHIFT is Present. Performed By: #### L 100.0100 ####[facility] [address] [place], [address] Lymphocytes/100 WBC (Bld) 16.1 % Low 19-41 [facility] Comment on above: Performed By: #### L 100.0100 ####[facility] [address] [place], [address] MCH (RBC) [Entitic mass] 30.1 pg Normal 27.0-32.0 [facility] Comment on above: Performed By: #### L 100.0100 ####[facility] [address] [place], [address] MCHC (RBC) [Mass/Vol] 33.2 g/dL Normal 32-36 [facility] Comment on above: Performed By: #### L 100.0100 ####[facility] [address] [place], [address] MCV (RBC) [Entitic vol] 90.4 fL Normal 80-94 [facility] Comment on above: Performed By: #### L 100.0100 ####[facility] [address] [place], [address] Monocytes/100 WBC (Bld) 9.6 % Normal 0-10 [facility] Comment on above: Performed By: #### L 100.0100 ####[facility] [address] [place], [address] Neutrophils/100 WBC (Bld) 71.9 % High 47-70 [facility] Comment on above: Performed By: #### L 100.0100 ####[facility] [address] [place], [address] Nucleated RBC (Bld) [#/Vol] 0 10*3/uL Normal 0-5 [facility] Comment on above: Performed By: #### L 100.0100 ####[facility] [address] [place], [address] Platelet mean volume (Bld) [Entitic vol] 12.0 fL Normal 6.2-12.0 [facility] Comment on above: Performed By: #### L 100.0100 ####[facility] [address] [place], [address] Platelets (Bld) [#/Vol] 224 10*3/uL Normal 150-450 [facility] Comment on above: Performed By: #### L 100.0100 ####[facility] [address] [place], [address] RBC (Bld) [#/Vol] 4.39 10*6/uL Low 4.6-6.2 [facility] Comment on above: Performed By: #### L 100.0100 ####[facility] [address] [place], [address] RDW SD 42.8 fl Normal 35.1-43.9 [facility] Comment on above: Performed By: #### L 100.0100 ####[facility] [address] [place], [address] WBC (Bld) [#/Vol] 9.0 10*3/uL Normal 4.4-11.0 [facility] Comment on above: Performed By: #### L 100.0100 ####[facility] [address] [place], [address] Emergency Department Summary on 01-21-2025 Emergency Department Summary [facility] Medical Records Department [address] [place] [address] Emergency Department Summary 01/21/25 MR#: [id number] Acct: [id number] Name: GOOD [place] Rep #: [id number] : 1965 59 From: Jj Koch DO [...] and therefore he comes in for evaluation [facility] Medical History Alcohol abuse Anxiety History [...] vitamin B complex 1 tab PO DAILY 02/27/2224 H istory clindamycin HCl 300 mg capsule [...] obtaining)] Bloo (more content not included)... Normal [facility] Magnesiumon 01-21-2025 Magnesium [Mass/Vol] 1.8 mg/dL Normal 1.5-2.2 [facility] Comment on above: Performed By: #### L 501.5200, L500.2500 ####[facility] [address] [place], [place], [address] Absolute lymphocyte countOrd ered By: Jj Koch on 01-20-2025 Lymphocytes Auto (Unsp spec) [#/Vol] 1.45 10*3/uL 0.83-4.51 [facility] Absolute neutrophil countOrd ered By: Jj Koch on 01-20-2025 Neutrophils (Bld) [#/Vol] 6.5 10*3/uL 2.0-7.7 [facility] Anion gap in Serum or Plasma Ordered By: Jj Koch on 01-20-2025 Anion gap [Moles/Vol] 11 mmol/L 5-15 [facility] Automated lymphocyte count a s percentage of total leukocytesOrdered By: Jj Koch on 01-20-2025 Lymphocytes/100 WBC Auto (Unsp spec) 16.1 % Low 19-41 [facility] BUN/creatinine ratioOrdered By: Jj Koch on 01-20-2025 Urea nitrogen/Creatinine [Mass ratio] 10.1 mg/mg 10-20 [facility] Basophil percentageOrdered B y: Jj Koch on 01-20-2025 Basophils/100 WBC (Bld) 0.2 % 0-1 [facility] Carbon dioxide, total [Moles /volume] in Central venous bloodOrdered By: Jj Koch on 01-20-2025 CO2 [Moles/Vol] 23.0 mmol/L 21.0-32.0 [facility] Chloride assayOrdered By: Ramona Koch on 01-20-2025 Chloride [Moles/Vol] 102 mmol/L 98-108 [facility] Eosinophil percentageOrdered By: Jj Koch on 01-20-2025 Eosinophils/100 WBC (Bld) 1.6 % 0-5 [facility] Erythrocyte distribution wid th ratioOrdered By: Jj Koch on 01-20-2025 Erythrocyte distribution width (RBC) [Ratio] 13.0 % 11.6-14.6 [facility] Erythrocyte distribution wid th standard deviationOrdered By: Jj Koch on 01-20-2025 Erythrocyte distribution width (RBC) [Ratio] 42.8 fl 35.1-43.9 [facility] Glomerular filtration rate ( GFR) estimation/1.73 sq m using serum, plasma, or whole bOrdered By: Jj Koch on 01-20-2025 GFR/1.73 sq M.predicted among non-blacks MDRD (S/P/Bld) [Vol rate/Area] 89 mL/min/{1.73_m2} >60 [facility] Comment on above: mL/min/1.73m2 CKD-EP I Creatinine Equation (2020) Hematocrit Auto (Bld) [Volum e fraction]Ordered By: Jj Koch on 01-20-2025 Hematocrit (Bld) [Volume fraction] 39.7 % Low 40-54 [facility] Hemoglobin measurementOrdere d By: Jj Koch on 01-20-2025 Hemoglobin (Bld) [Mass/Vol] 13.2 g/dL 13.0-16.5 [facility] Immature granulocytes/100 WB C Auto (Bld)Ordered By: Jj Koch on 01-20-2025 Immature granulocytes/100 WBC (Bld) 0.600 % 0.0-0.9 [facility] Comment on above: IG% - Immature Granu locytes (promyelocytes, myelocytes and metamyelocytes) > 1% indicates that a LEFT SHIFT is Present. MCV (mean corpuscular volume ) determinationOrdered By: Jj Koch on 01-20-2025 MCV (RBC) [Entitic vol] 90.4 fL 80-94 [facility] Magnesium measurement (mass/ volume)Ordered By: Jj Koch on 01-20-2025 Magnesium (Unsp spec) [Mass/Vol] 1.8 mg/dL 1.5-2.2 [facility] Mean corpuscular hemoglobin (MCH) determinationOrdered By: Jj Koch on 01-20-2025 MCH (RBC) [Entitic mass] 30.1 pg 27.0-32.0 [facility] Mean corpuscular hemoglobin concentration (MCHC) determinationOrdered By: Jj Koch on 01-20-2025 MCHC (RBC) [Mass/Vol] 33.2 g/dL 32-36 [facility] Mean platelet volume determi nationOrdered By: Jj Koch on 01-20-2025 Platelet mean volume (Bld) [Entitic vol] 12.0 fL 6.2-12.0 [facility] Monocyte percentageOrdered B y: Jj Koch on 01-20-2025 Monocytes/100 WBC (Bld) 9.6 % 0-10 [facility] Neutrophil percentageOrdered By: Jj Koch on 01-20-2025 Neutrophils/100 WBC (Bld) 71.9 % High 47-70 [facility] Nucleated red blood cell per centageOrdered By: Jj Koch on 01-20-2025 Nucleated RBC/100 WBC (Bld) [Ratio] 0 % 0-5 [facility] Platelet countOrdered By: Ramona Koch on 01-20-2025 Platelets (Bld) [#/Vol] 224 10*3/uL 150-450 [facility] Potassium measurement (mass/ volume)Ordered By: Jj Koch on 01-20-2025 Potassium (Unsp spec) [Mass/Vol] 3.5 mmol/L 3.3-5.1 [facility] RBC Auto (Bld) [#/Vol]Ordere d By: Jj Koch on 01-20-2025 RBC (Bld) [#/Vol] 4.39 10*6/uL Low 4.6-6.2 [facility] Serum creatinine measurement (mass/volume)Ordered By: Jj Koch on 01-20-2025 Creatinine [Mass/Vol] 0.99 mg/dL 0.70-1.20 [facility] Serum glucose measurement (m ass/volume)Ordered By: Jj Koch on 01-20-2025 Glucose [Mass/Vol] 90 mg/dL 70-99 [facility] Serum or plasma calcium micheal urement (mass/volume)Ordered By: Jj Koch on 01-20-2025 Calcium [Mass/Vol] 8.7 mg/dL 7.6-11.0 [facility] Serum or plasma urea nitroge n measurement (mass/volume)Ordered By: Jj Koch on 01-20-2025 Urea nitrogen [Mass/Vol] 10 mg/dL 4-19 [facility] Sodium levelOrdered By: Castro Koch on 01-20-2025 Sodium [Moles/Vol] 136 mmol/L 133-145 [facility] White blood cell (WBC) count Ordered By: Jj Koch on 01-20-2025 WBC (Bld) [#/Vol] 9.0 10*3/uL 4.4-11.0 [facility] Basic metabolic 2000 panelOr dered By: Sadaf Negrete on 01-17-2025 Anion gap [Moles/Vol] 15 mmol/L 8 - 15 mmol/L [facility] Calcium [Mass/Vol] 9.8 mg/dL 8.5 - 10. 2 mg/dL [facility] Chloride [Moles/Vol] 100 mmol/L 98 - 10 7 mmol/L [facility] CO2 [Moles/Vol] 19 mmol/L Low 22 - 30 mmol/L [facility] Creatinine [Mass/Vol] 0.93 mg/dL 0.73 - 1.22 mg/dL [facility] GFR/1.73 sq M.predicted among non-blacks MDRD (S/P/Bld) [Vol rate/Area] 96 mL/min/{1.73_m2} - PINF [facility] Comment on above: Estimated Glomerular Filtration [...] [Mass/Vol] 85 mg/dL 74 - 99 mg/dL [facility] Comment on above: The [place] [employer] Association (ADA) provides guidance for [...] Standards of Medical Care in Diabetes 2016, [place] [employer]. Diabetes Care. 2016.39(Suppl 1). Interpretation and review of laboratory results Abnormal [facility] Potassium [Moles/Vol] 4 mmol/L 3.7 - 5.1 mmol/L [facility] Sodium [Moles/Vol] 134 mmol/L Low 136 - 144 mmol/L [facility] Urea nitrogen [Mass/Vol] 23 mg/dL 9 - 24 mg/dL [facility] Basic metabolic 2000 panelon 01-17-2025 Anion gap [Moles/Vol] 15 mmol/L Normal 8-15 [facility] Comment on above: Order Comment: Speci men Type: BLOOD SPECIMENOrdering Facility: [facility] Address: [address] [place], [place] [address] [address] Performed By: #### 1 9123-9, 89382-6 ####[facility] [id number] [place] [address] [place]#### 67100-6, 2276-4 ####[facility] LABCLIA [id number] [place] [address] [place] Calcium [Mass/Vol] 9.8 mg/dL Normal 8.5-10.2 [facility] Comment on above: Order Comment: Speci men Type: BLOOD SPECIMENOrdering Facility: [facility] Address: [address] [place] [address] Performed By: #### 1 9123-9, 82197-3 ####[facility] MILLTOWNCLIA [id number] [place] [address] [place]#### 65521-2, 2275-4 ####[facility] LABCLIA [id number] [place] [address] [place] Chloride [Moles/Vol] 100 mmol/L Normal 98-107 [facility] Comment on above: Order Comment: Speci men Type: BLOOD SPECIMENOrdering Facility: [facility] Address: [address] [place] [address] Performed By: #### 1 91239, 72220-0 ####[facility] MILLWNCLIA [id number] [place] [address] [place]#### 02739-8, 2275-4 ####[facility] LABCLIA [id number] [place] [address] [place] CO2 [Moles/Vol] 19 mmol/L Low 22-30 [facility] Comment on above: Order Comment: Speci men Type: BLOOD SPECIMENOrdering Facility: [facility] Address: [address] [place] [address] Performed By: #### 1 9123-9, 43261-8 ####[facility] MILLTOWNCLIA [id number] [place] [address] [place]#### 25854-6, 2275-4 ####[facility] LABCLIA [id number] [place] [address] [place] Creatinine [Mass/Vol] 0.93 mg/dL Normal 0.73-1.22 [facility] Comment on above: Order Comment: Speci men Type: BLOOD SPECIMENOrdering Facility: [facility] Address: [address] [place] [address] Performed By: #### 1 9123-9, 60929-4 ####[facility] [id number] [place] [address] [place]#### 50348-1, 2276-4 ####[facility] [id number] [place] [address] [place] Creatinine and Glomerular filtration rate.predicted panel (S/P/Bld) 96 mL/min/1.73m??? Normal >=60 [facility] Comment on above: Order Comment: Speci men Type: BLOOD SPECIMENOrdering Facility: [facility] Address: [address] [place] [address] Result Comment: Heidi mated Glomerular Filtration Rate [...] actual GFR. Performed By: #### 1 9123-9, 40794-4 ####[facility] [id number] [place] [address] [place]#### 52846-4, 2276-4 ####[facility] LABIA [id number] [place] [address] [place] Glucose [Mass/Vol] 85 mg/dL Normal 74-99 [facility] Comment on above: Order Comment: Speci men Type: BLOOD SPECIMENOrdering Facility: [facility] Address: [address] [place] [address] Result Comment: The [place] Diabetes [employer] (ADA) provides guidance for cutoff [...] Standards of Medical Care in Diabetes 2016, [place] [employer]. Diabetes Care. 2016.39(Suppl 1). Performed By: #### 1 9123-9, 23130-0 ####[facility] [id number] [place] [address] [place]#### 39220-5, 2276-4 ####[facility] LABCLIA [id number] [place] [address] [place] [place] Potassium [Moles/Vol] 4.0 mmol/L Normal 3.7-5.1 [facility] Comment on above: Order Comment: Speci men Type: BLOOD SPECIMENOrdering Facility: [facility] Address: [address] [place] [address] Performed By: #### 1 9123-9, 37676-9 ####[facility] [id number] [place] [address] [place]#### 39894-4, 2276-4 ####[facility] LABCLIA [id number] [place] [address] [place] Sodium [Moles/Vol] 134 mmol/L Low 136-144 [facility] Comment on above: Order Comment: Speci men Type: BLOOD SPECIMENOrdering Facility: [facility] Address: [address] [place] [id number] Performed By: #### 1 9123-9, 25947-9 ####[facility] [id number] [address] [place]#### 62129-3, 2276-4 ####[facility] LABCLIA [id number] [address] [place] Urea nitrogen [Mass/Vol] 23 mg/dL Normal 9-24 [facility] Comment on above: Order Comment: Speci men Type: BLOOD SPECIMENOrdering Facility: [facility] Address: [address] [place] [address] Performed By: #### 1 9123-9, 53600-4 ####[facility] [id number] [address] [place]#### 50572-5, 6-4 ####[facility] LABCLIA [id number] [place] [address] [place] CBC W Auto Differential pane l (Bld)on 01-17-2025 Basophils (Bld) [#/Vol] 0.04 10*3/uL [facility] Basophils/100 WBC (Bld) 0.4 % [facility] Differential cell count method Nom (Bld) Auto [facility] Eosinophils (Bld) [#/Vol] 0.11 10*3/uL [facility] Eosinophils/100 WBC (Bld) 1.1 % [facility] Erythrocyte distribution width (RBC) [Ratio] 12.9 % 11.5 - 15.0 % [facility] Hematocrit (Bld) [Volume fraction] 43.9 % 39.0 - 51.0 % [facility] Hemoglobin (Bld) [Mass/Vol] 15.6 g/dL 13.0 - 17.0 g/dL [facility] Immature granulocytes (Bld) [#/Vol] 0.09 10*3/uL [facility] Immature granulocytes/100 WBC (Bld) 0.9 % [facility] Lymphocytes (Bld) [#/Vol] 1.62 10*3/uL [facility] Lymphocytes/100 WBC (Bld) 16.5 % [facility] MCH (RBC) [Entitic mass] 31.4 pg 26.0 - 34.0 pg [facility] MCHC (RBC) [Mass/Vol] 35.5 g/dL 30.5 - 36.0 g/dL [facility] MCV (RBC) [Entitic vol] 88.3 fL 80.0 - 100.0 fL [facility] Monocytes (Bld) [#/Vol] 0.7 10*3/uL [facility] Monocytes/100 WBC (Bld) 7.1 % [facility] Neutrophils (Bld) [#/Vol] 7.25 10*3/uL [facility] Neutrophils/100 WBC (Bld) 74 % [facility] Nucleated RBC (Bld) [#/Vol] NINF [facility] Nucleated RBC/100 WBC (Bld) [Ratio] 0 % /100 WBC [facility] Platelet mean volume (Bld) [Entitic vol] 11.3 fL 9.0 - 12.7 fL [facility] Platelets (Bld) [#/Vol] 251 10*3/uL [facility] RBC (Bld) [#/Vol] 4.97 10*6/uL 4.20 - 6.0 0 m/uL [facility] WBC (Bld) [#/Vol] 9.81 10*3/uL [facility] Basophils (Bld) [#/Vol] 0.04 10*3/uL Normal <0.11 [facility] Comment on above: Order Comment: Speci men Type: BLOOD SPECIMENOrdering Facility: [facility] Address: [address] [place] [address] Performed By: #### 5 7021-8 ####[facility] [id number] [place] [address] [place] Basophils/100 WBC (Bld) 0.4 % Normal [facility] Comment on above: Order Comment: Speci men Type: BLOOD SPECIMENOrdering Facility: [facility] Address: [address] [place] [address] Performed By: #### 5 7021-8 ####[facility] MILLTuckerFELECIALIA [id number] [place] [address] [place] Differential cell count method Nom (Bld) Auto Normal [facility] Comment on above: Order Comment: Speci men Type: BLOOD SPECIMENOrdering Facility: [facility] Address: [address] [place] [address] Performed By: #### 5 7021-8 ####[facility] [id number] [place] [address] [place] Eosinophils (Bld) [#/Vol] 0.11 10*3/uL Normal <0.46 [facility] Comment on above: Order Comment: Speci men Type: BLOOD SPECIMENOrdering Facility: [facility] Address: [address] [place] [address] Performed By: #### 5 7021-8 ####[facility] OCALAFELECIALIA [id number] [place] [address] [place] Eosinophils/100 WBC (Bld) 1.1 % Normal [facility] Comment on above: Order Comment: Speci men Type: BLOOD SPECIMENOrdering Facility: [facility] Address: [address] [place] [address] Performed By: #### 5 7021-8 ####[facility] SOUTHWFELECIALIA [id number] [place] [address] [place] Erythrocyte distribution width (RBC) [Ratio] 12.9 % Normal 11.5-15.0 [facility] Comment on above: Order Comment: Speci men Type: BLOOD SPECIMENOrdering Facility: [facility] Address: [address] [place] [address] Performed By: #### 5 7021-8 ####[facility]CL[facility] [id number] [place] [address] [place] Hematocrit (Bld) [Volume fraction] 43.9 % Normal 39.0-51.0 [facility] Comment on above: Order Comment: Speci men Type: BLOOD SPECIMENOrdering Facility: [facility] Address: [address] [place] [address] Performed By: #### 5 7021-8 ####[facility]AL[facility] [id number] [place] [address] [place] Hemoglobin (Bld) [Mass/Vol] 15.6 g/dL Normal 13.0-17.0 [facility] Comment on above: Order Comment: Speci men Type: BLOOD SPECIMENOrdering Facility: [facility] Address: [address] [place] [address] Performed By: #### 5 7021-8 ####[facility] [id number] [place] [address] [place] Immature granulocytes (Bld) [#/Vol] 0.09 10*3/uL Normal <0.10 [facility] Comment on above: Order Comment: Speci men Type: BLOOD SPECIMENOrdering Facility: [facility] Address: [address] [place] [address] Performed By: #### 5 7021-8 ####[facility]CL[facility] [id number] [place] [address] [place] Immature granulocytes/100 WBC (Bld) 0.9 % Normal [facility] Comment on above: Order Comment: Speci men Type: BLOOD SPECIMENOrdering Facility: [facility] Address: [address] [place] [address] Performed By: #### 5 7021-8 ####[facility]ALANCL[facility] [id number] [place] [address] [place] Lymphocytes (Bld) [#/Vol] 1.62 10*3/uL Normal 1.00-4.00 [facility] Comment on above: Order Comment: Speci men Type: BLOOD SPECIMENOrdering Facility: [facility] Address: [address] [place] [address] Performed By: #### 5 7021-8 ####[facility] PEDRO LUIS [id number] [place] [address] [place] Lymphocytes/100 WBC (Bld) 16.5 % Normal [facility] Comment on above: Order Comment: Speci men Type: BLOOD SPECIMENOrdering Facility: [facility] Address: [address] [place] [address] Performed By: #### 5 7021-8 ####[facility] JANKISAINT GEORGESNCROBY [id number] [place] [address] [place] MCH (RBC) [Entitic mass] 31.4 pg Normal 26.0-34.0 [facility] Comment on above: Order Comment: Speci men Type: BLOOD SPECIMENOrdering Facility: [facility] Address: [address] [place] [address] Performed By: #### 5 7021-8 ####[facility] JANKISAINT GEORGESNCROBY [id number] [place] [address] [place] MCHC (RBC) [Mass/Vol] 35.5 g/dL Normal 30.5-36.0 [facility] Comment on above: Order Comment: Speci men Type: BLOOD SPECIMENOrdering Facility: [facility] Address: [address] [place] [address] Performed By: #### 5 7021-8 ####[facility]ALANCL[facility] [id number] [place] [address] [place] MCV (RBC) [Entitic vol] 88.3 fL Normal 80.0-100.0 [facility] Comment on above: Order Comment: Speci men Type: BLOOD SPECIMENOrdering Facility: [facility] Address: [address] [place] [address] Performed By: #### 5 7021-8 ####[facility] MILLTOWNCLIA [id number] [place] [address] [place] Monocytes (Bld) [#/Vol] 0.70 10*3/uL Normal <0.87 [facility] Comment on above: Order Comment: Speci men Type: BLOOD SPECIMENOrdering Facility: [facility] Address: [address] [place] [address] Performed By: #### 5 7021-8 ####[facility] HOS[facility]ITALLIA [id number] [place] [address] [place] Monocytes/100 WBC (Bld) 7.1 % Normal [facility] Comment on above: Order Comment: Speci men Type: BLOOD SPECIMENOrdering Facility: [facility] Address: [address] [place] [address] Performed By: #### 5 7021-8 ####[facility] H[facility]ITALLIA [id number] [place] [address] [place] Neutrophils (Bld) [#/Vol] 7.25 10*3/uL Normal 1.45-7.50 [facility] Comment on above: Order Comment: Speci men Type: BLOOD SPECIMENOrdering Facility: [facility] Address: [address] [place] [address] Performed By: #### 5 7021-8 ####[facility] SOUTHWNCLIA [id number] [place] [address] [place] Neutrophils/100 WBC (Bld) 74.0 % Normal [facility] Comment on above: Order Comment: Speci men Type: BLOOD SPECIMENOrdering Facility: [facility] Address: [address] [place] [address] Performed By: #### 5 7021-8 ####[facility] OCALANCLIA [id number] [place] [address] [place] Nucleated RBC (Bld) [#/Vol] 10*3/uL Normal <0.01 [facility] Comment on above: Order Comment: Speci men Type: BLOOD SPECIMENOrdering Facility: [facility] Address: [address] [place] [address] Performed By: #### 5 7021-8 ####[facility]ALANCA [id number] [place] [address] [place] Nucleated RBC/100 WBC (Bld) [Ratio] 0.0 /100 WBC Normal [facility] Comment on above: Order Comment: Speci men Type: BLOOD SPECIMENOrdering Facility: [facility] Address: [address] [place] [address] Performed By: #### 5 7021-8 ####[facility] [id number] [place] [address] [place] Platelet mean volume (Bld) [Entitic vol] 11.3 fL Normal 9.0-12.7 [facility] Comment on above: Order Comment: Speci men Type: BLOOD SPECIMENOrdering Facility: [facility] Address: [address] [place] [address] Performed By: #### 5 7021-8 ####[facility]ANCL[facility] [id number] [place] [address] [place] Platelets (Bld) [#/Vol] 251 10*3/uL Normal 150-400 [facility] Comment on above: Order Comment: Speci men Type: BLOOD SPECIMENOrdering Facility: [facility] Address: [address] [place] [address] Performed By: #### 5 7021-8 ####[facility]ANCL[facility] [id number] [place] [address] [place] RBC (Bld) [#/Vol] 4.97 10*6/uL Normal 4.20-6.00 [facility] Comment on above: Order Comment: Speci men Type: BLOOD SPECIMENOrdering Facility: [facility] Address: [facility] [place] [address] Performed By: #### 5 7021-8 ####[facility] TARUN JANKITOWNCLIA [id number] [place] [address] [place] WBC (Bld) [#/Vol] 9.81 10*3/uL Normal 3.70-11.00 [facility] Comment on above: Order Comment: Speci men Type: BLOOD SPECIMENOrdering Facility: [facility] Address: [address] [place], [place] [address] [address] Performed By: #### 5 7021-8 ####[facility] TARUN JANKITOWNCLIA [id number] [address] OF [place] CNOVon 01-17-2025 [facility] [place] ([id number]) 1965 M Date Time Provider Department 01/17/25 10:20 AM INO [facility]A [facility] During your visit today, we recorded the following information about you: Pulse Blood pressure 69/minute 117/66 Ino Esqueda, RETAIL SALES SPECIALIST.[employer] MEDIA SPECIALIST 01/17/2025 10:41 AM Signed Chief Complaint Patient presents with: Follow Up HPI Good Whatley De Luna is a 59 year old [...] BASIC METABO (more content not included)... Normal [facility] FERRITINon 01-17-2025 Ferritin [Mass/Vol] 363 ng/mL 30.3 - 565.7 ng/mL [facility] Ferritin SerPl-mCncon 2024 Ferritin [Mass/Vol] 363.0 ng/mL Normal 30.3-565.7 [facility] Comment on above: Order Comment: Speci men Type: BLOOD SPECIMENOrdering Facility: [facility] Address: [address] [place] [address] Performed By: #### 1 9123-9, 41256-1 ####[facility] SOUTHWNCLIA [id number] [place] [address] [place]#### 53069-7, 2275-4 ####[facility] LABCLIA [id number] [place] [address] [place] Ferritin [Mass/Vol]on 2024 Interpretation and review of laboratory results Normal [facility] Iron and Iron binding capaci ty panelon 01-17-2025 Interpretation and review of laboratory results Normal [facility] Iron [Mass/Vol] 47 ug/dL 41 - 186 ug/dL [facility] Iron binding capacity [Mass/Vol] 305 ug/dL 232 - 386 ug/dL [facility] Iron/TIBC [Molar ratio] 15.4 % 15.0 - 57.0 % [facility] Iron [Mass/Vol] 47 ug/dL Normal 41-186 [facility] Comment on above: Order Comment: Speci men Type: BLOOD SPECIMENOrdering Facility: [facility] Address: [address] [place] [address] Performed By: #### 1 9123-9, 95560-6 ####[facility] SOUTHWNCLIA [id number] [place] [address] [place]#### 22502-6, 2275-10 ####[facility] LABCLIA [id number] [place] [address] [place] Iron binding capacity [Mass/Vol] 305 ug/dL Normal 232-386 [facility] Comment on above: Order Comment: Speci men Type: BLOOD SPECIMENOrdering Facility: [facility] Address: [address] [place] [address] Performed By: #### 1 9123-9, 66246-0 ####[facility] SOUTHWNCLIA [id number] [place] [address] [place]#### 74389-8, 2275-10 ####[facility] LABCLIA [id number] [place] [address] [place] Iron/TIBC [Molar ratio] 15.4 % Normal 15.0-57.0 [facility] Comment on above: Order Comment: Speci men Type: BLOOD SPECIMENOrdering Facility: [facility] Address: [facility] [place] [address] Performed By: #### 1 9123-9, ####[facility]CL[facility] [id number] [place] [address] [place]#### 96292-7, 2275-10 ####[facility] LABCLIA [id number] [place] [id number] [place] MAGNESIUMon 01-17-2025 Magnesium [Mass/Vol] 1.7 mg/dL 1.7 - 2 .3 mg/dL [facility] Magnesium SerPl-mCncon 01-17 Magnesium [Mass/Vol] 1.7 mg/dL Normal 1.7-2.3 [facility] Comment on above: Order Comment: Speci men Type: BLOOD SPECIMENOrdering Facility: [facility] Address: [address] [place] [id number] Performed By: #### 1 9123-9, ####[facility] OCALANCL[facility] [id number] [place] [address] [place]#### 22273-5, 2275-10 ####[facility] LABCLIA [id number] [place] [id number] [place] Magnesium [Mass/Vol]on 01-17 Interpretation and review of laboratory results Normal [facility] VITAMIN B1 (THIAMINE), WHOLE BLOODon 01-17-2025 Thiamine (Bld) [Moles/Vol] 181.2 nmol/L Normal 84.3-213.3 [facility] Comment on above: Order Comment: Speci men Type: BLOOD SPECIMENOrdering Facility: [facility] Address: [address] [place] [address] Result Comment: This assay measures the concentration of thiamine diphosphate (TDP), the primary active form of vitamin B1. Approximately 90 percent of vitamin B1 present in whole blood is TDP. Thiamine and thiamine monophosphate, which comprise the remaining 10 percent, are not measured. This test was developed, and its performance characteristics determined by the [facility] Department of Pathology and Laboratory Medicine. It has not been cleared or approved by the FDA. The [facility] Department of Pathology and Laboratory Medicine is regulated under CLIA as qualified to perform high-complexity testing. This test is used for clinical purposes. It should not be regarded as investigational or for research. Performed By: #### B 1WB ####[facility] LABCLIA [id number] [place] [address] [place] VITAMIN B2/RIBOFLAVon 2024 VITAMIN B2 52 nmol/L High 5-50 [facility] Comment on above: Order Comment: Speci men Type: BLOOD SPECIMENOrdering Facility: [facility] Address: [address] [place] [address] Result Comment: INTE RPRETIVE INFORMATION: Vitamin B2, Plasma This test was developed and its performance characteristics determined by [employer]. It has not been cleared or approved by the [place] Food and Drug Administration. This test was performed in a CLIA certified laboratory and is intended for clinical purposes. Performed By: [facility] [address] [place] [address] Director Of Business Continuity: Willie Le MD, PhD CLIA Number: [id number] Performed By: #### V ITB2 ####[facility] [id number] [place] [id number] VITAMIN B6/PYRIDOXINon 01-17 VITAMIN B6 90.6 nmol/L Normal 20.0-125.0 [facility] Comment on above: Order Comment: Speci men Type: BLOOD SPECIMENOrdering Facility: [facility] Address: [address] [place], [place] [address] [place] [address] Result Comment: INTE RPRETIVE INFORMATION: Vitamin B6 (Pyridoxal 5-Phosphate) Pyridoxal 5'-phosphate measured in a specimen collected following an 8-hour or overnight fast accurately indicates vitamin B6 nutritional status. Non-fasting specimen concentration reflects recent vitamin intake. This test was developed and its performance characteristics determined by [employer]. It has not been cleared or approved by the [place] Food and Drug Administration. This test was performed in a CLIA certified laboratory and is intended for clinical purposes. Performed By: [facility] [address] [place] [address] Director Of Business Continuity: Willie Le MD, PhD CLIA Number: [id number] Performed By: #### V ITB6 ####[facility] [id number] [place] [id number] Vit B12 [facility] 01-17-2 025 Cobalamin (Vitamin B12) [Mass/Vol] 568 pg/mL Normal 232-1245 [facility] Comment on above: Order Comment: Speci magaly Type: BLOOD SPECIMENOrdering Facility: [facility] Address: [address] [place] [address] Performed By: #### 2 132-9 ####[facility] LABCLIA [id number] [address] OF [facility] CNOVon 01-14-2025 [facility] [place] ([id number]) 1965 M Date Time Provider Department 01/14/25 10:20 AM INO ESQUEDA During your visit today, we recorded the following information about you: Pulse Blood pressure Weight 68/minute 123/71 101 kg Ino Esqueda APRN.[employer] MEDIA SPECIALIST 01/14/2025 10:42 AM Signed Chief Complaint Patient [...] L91.8 - CONSULT TO DERMATOLOGY Ino Esqueda APRN.[employer] MEDIA SPECIALIST Allergies As of Date: 01/14/2025 (No Known Allergies) Date Reviewed: 01/14/2025 Reviewed by: Margarita Ferrara MA - Fully Assessed Reason for Visit: Derm Problem [33] Cmt: Skin tags Diverticulitis [271] Primary Vi (more content not included)... [facility] [place] ([id number]) 1965 M Date Time Provider Department 01/10/25 MATHEW COBIAN [facility] During your visit today, we recorded [...] Status:Closed by LAURA WHALEY on 01/10/25 [facility] CNOVon 12-25-2024 CNOV Office Visit ([facility] ) -- CALIXTOGOOD Chacorta ([id number]) 1965 M Date Time Provider Department 12/25/24 1:30 PM [facility]ON [facility] During your visit today, we recorded the following information about you: Temperature Pulse Respiration Blood pressure 98.4 degrees 67/minute 20/minute 128/70 Weight 99.5 kg Greyson Ellsworth APRN.[employer] MEDIA SPECIALIST 12/25/2024 2:13 PM Signed [facility] Subjective oGod De Luna is a 59 year old [...] Claritin follow up with pcp. Greyson Ellsworth APRN.H[employer] MEDIA SPECIALIST History and Record Review Clinical information obtained from an independent historian. History obtained from or confirmed by: family member. External record(s) reviewed: prior outpatient record. Findings from review of outpatient records: Previous medical history Differential Diagnoses - allergic rhinitis is more likely for the following reason(s): suggested by HANDP - Strep is less likely for the following re (more content not included)... Normal [facility] STREP A MOLECULAR (POC)on Procedural Control Valid [facility] Strep A (POCT) Negative Negative [facility] CNOVon 12-13-2024 CNOV Office Visit ([facility]AMPWS ) -- [place] ([id number]) 1965 M Date Time Provider Department 12/13/24 11:40 AM MATHEW COBIANPWS During your visit today, we recorded the [...] Past Histories independently gathered by the clinical accounting support specialist and the remaining scribed note accurately describes my personal service to the patient. Medical Decision Making: Problems: Low: Acute, uncomplicated illness or injury Risk: Low: Low risk from testing/treatment Medical Decision Making Level: 3 - Low Mathew Cobian MD The documentation for this note was completed by aLura Whaley MA acting as scribe for Mathew Cobian MD. December 13, 2024 11:42 AM. Laura Whaley MA Allergies As of Date: 12/13/2024 (No Known Allergies) Date Reviewed: 12/13/2024 Reviewed by: Laura Whaley MA - Fully Assessed Reason for Visit: Ingrown Toenail [111] Cmt: Primary Visit Diagnosis:Fungal infection of toenail [B35.1] Order(s):CONSULT TO PODIATRY [9034] Order #: [id number]: 1 FUTURE Prescriptions as of 12/13/2024 - citalopram (CELEXA) 40 mg tablet Take 1 tablet by mouth once daily. - levothyroxine (SYNTHROID) 150 mcg tablet Take 1 tablet by mouth once daily. - omeprazole (PRILO (more content not included)... Normal [facility] 12-10-2024 [facility] Telephone ([facility]) -- [place] ([id number]) 1965 M Date Time Provider Department 12/10/24 MATHEW COBIAN [facility] During your visit today, we recorded [...] Fully Assessed Reason for Visit: Patient Question [6817] Prescriptions as of 12/10/2024 - citalopram (CELEXA) [...] Status:Closed by MICK YOUNGBLOOD on 12/10/24 Normal [facility] Emergency Department Summary on 11-05-2024 Emergency Department Summary [facility] Medical Records Department [address] [place] [address] Emergency Department Summary 11/05/24 MR#: [id number] Acct: [id number] Name: GOOD DE LUNA Rep #: [id number] : 1965 59 From: Salvatore Watkins MD [...] 6 months ago, and everything appeared normal. [facility] Medical History Alcohol abuse Anxiety History [...] Mouth pain (more content not included)... Normal [facility] MRI PROSTATE WO/W IVCONon MRI PROSTATE WO/W IVCON * * *Final Report* * * DATE OF EXAM: Oct 28 2024 11:31AM AKM 0751 - MRI PROSTATE WO/W IVCON / [...] volume were obtained using a semi-automated software (Grocio). CONTRAST: IV: 9 cc of Elucirem. COMPARISON: [...] 5: Clinically significant cancer is highly likely (V.) Washhouse Hand: MARTIN Transcribe Date/Time: Oct 31 2024 11:00A Dictated by : THOMAS JAMES MD This examination was interpreted and the report reviewed and electronically signed by: THOMAS JAMES MD on Oct 31 2024 11:25AM EST [id number] [facility] -- GOOD [place] ([id number]) 1965 M Date Time Provider Department 09/10/24 [...] Status:Closed by BIBI ARNETT on 09/10/24 Normal [facility] CNOVon 08-26-2024 CNOV Office Visit (ORTHWS ) -- GOOD DE LUNA ([id number]) 1965 M Date Time Provider Department 08/26/24 [...] Tammie Walters PA-C Department of Orthopaedics Orthopaedics [address] [place] [address] Dept: [phone] Dept August 26, 2024 CHIEF COMPLAINT: Established Patient and Follow Up of the Right Ankle. ASSESSMENT: S82.474V Other closed fracture of proximal end of [...] allergies. This note was partially generated using Feathr voice recognition system, and there may be some incorrect words, spellings, and punctuation that were not noted in checking the note before saving. Tammie Walters PA-C Referring Provider: TAMMIE WALTERS [[id number]] Allergies As of Date: 08/26/2024 (No Known Allergies) Date Reviewed: 08/26/2024 Reviewed by: Keisha Ruggiero MA - Fully Assessed Reason for Visit: Established Patient [175] Follow Up [171] Primary Visit Diagnosis:Other closed fracture of proximal end of right fibula with routine healing, subsequent encounter [N10.208S] Prescriptions as of 08/26/2024 - citalopram (CELEXA) [...] disorder, remission *10/17/2023 Prostate cancer (HCC) [C61] 03/ (more content not included)... Normal [facility] XR TIBIA FIBULA 2V AP/LAT RT [...] are maintained. IMPRESSION: Healing fibular neck fracture Washhouse Hand: [facility] Transcribe Date/Time: Aug 28 2024 9:14A Dictated by : WENDI MIRANDA MD This examination was interpreted and the report reviewed and electronically signed by: WENDI MIRANDA MD on Aug 28 2024 9:15AM EST [id number] Normal [facility] XR Tibia and Fibula - right AP and Lateralon 08-01-2024 IMPRESSION: Nondisplaced fracture of the neck of the right fibula Washhouse Hand: [facility] Transcribe Date/Time: Aug 01 2024 4:07P [...] spaces are maintained. DIVISION OF RADIOLOGY Provider, [facility] - 08/01/2024 * * *Final Report* [...] of the neck of the right fibula Washhouse Hand: MARTIN Transcribe Date/Time: Aug 01 2024 4:07P Dictated by : SHANELL GORE MD This examination was interpreted and the report reviewed and electronically signed by: SHANELL GORE MD on Aug 01 2024 4:10PM EST [facility] XR Tibia and Fibula - right AP and LateralOrdered By: Ccf Provider on 08-01-2024 [facility] CNOVon 07-29-2024 CNOV Office Visit (ORTHWS ) -- GOOD DE LUNA ([id number]) 1965 M Date Time Provider Department 07/29/24 [...] Tammie Walters PA-C Department of Orthopaedics Orthopaedics [address] [place] [address] Dept: [phone] Dept July 29, 2024 CHIEF COMPLAINT: New [...] mechanism of injury. He was seen at [facility] a few days after the injury, [...] as tolerated, can wrap knee/calf area with guicho wrap for comfort if needed. Ice and [...] of the neck of the right fibula [facility] [facility] Transcribe Date/Time: Aug 01 2024 4:07P Dictated [...] cm o (more content not included)... Normal [facility] XR TIBIA FIBULA 2V AP/LAT RT [...] of the neck of the right fibula Washhouse Hand: PSCAntonio Transcribe Date/Time: Aug 01 2024 4:07P Dictated by : SHANELL GORE MD This examination was interpreted and the report reviewed and electronically signed by: SHANELL GORE MD on Aug 01 2024 4:10PM EST [id number] Normal [facility] XR Tibia and Fibula - right AP and Lateralon 07-29-2024 Radiology Study observation (narrative) [facility] CNCOon 07-25-2024 CNCO Letter Text Normal [facility] CNOVon 07-25-2024 CNOV Office Visit (FAMPWS ) -- GOOD DE LUNA ([id number]) 1965 M Date Time Provider Department 07/25/24 [...] for ER Follow Up.. Pt was in [facility] ER on 07/22/24 for closed fx [...] fax number to fax letter. Fax number [phone], ATTN: Karie. Case #: [id number]. Notes some sinus drainage and cough, wondering [...] leg. He states that he went to [facility] had an x-ray obtained and was told [...] mg table (more content not included)... [facility] -- GOOD [place] ([id number]) 1965 Ashlyn Date Time Provider Department 07/23/24 MATHEW COBIAN [facility] During your visit today, we recorded the following information about you: Ashlyn London RN 07/23/2024 12:37 PM Signed Pt scheduled [facility] ER f/u. 07-22-24. Reports has closed fx of fibula proximal right, and instructed to f/u with pcp and also ortho by the end of the week. Transferred to Ortho per pt request. Sofia Chung MA 07/23/2024 12:52 PM Signed Patient transferred. Patient states he was told by [facility] ED he has a fracture and needs to be seen by orthopedics by Monday. Patient unable to stay on hold for scheduling. Please advise TAWANNA Del Rio Amy M, MA 07/23/2024 1:35 PM Signed I called and spoke with the patient. Advised no providers in the [place] office until 07/29/2024. Patient scheduled appointment. Allergies As of Date: 07/23/2024 (No Known Allergies) Date Reviewed: 07/12/2024 Reviewed by: Rola Riojas LPN - Fully Assessed Reason for Visit: [facility] ER f/u [Other] Prescriptions as of [...] Status:Closed by Ashlyn LONDON on 07/23/24 Normal [facility] Emergency Department Summary on 07-22-2024 Emergency Department Summary [facility] Medical Records Department [address] [place] [address] Emergency Department Summary 07/22/24 MR#: [id number] Acct: [id number] Name: GOOD DE LUNA Rep #: [id number] : 1965 59 From: Franklyn Donaldson DO [...] leg. He states that he went to [facility] had an x-ray obtained and was told that everything was normal. He states that he is having significant amount of pain still therefore he came here further evaluation management. He states he has been ambulating with a walker at home secondary to the pain. [facility] Medical History Alcohol abuse Anxiety History [...] following commands knew that he was at [facility] years 2023. Sensation grossly intact Skin: [...] to t (more content not included)... Normal [facility] Extremity Lower without Cont raon 07-22-2024 Extremity Lower without Contra [facility] Imaging Services [address] [place], [place] [id number] Extremity Lower without Contra MR#: [id number] Acct: [id number] Name: GOOD DE LUNA Rep #: [id number] : 1965 M 59 From: Ang Triana DO PCP: Dr. Mathew Cobian MD Status: REG ER Study: Extremity Lower without Contra Date of Exam: Exam# [id number] Ordering Dr: Franklyn Donaldson DO [id number] CT RIGHT LOWER EXTREMITY WITH 3-D IMAGING [...] 20:07 EST Reading Location ID and State: [facility] / [place] Tel [phone], Service support , CC: Dr. Mathew Cobian MD; Dr. Franklyn Donaldson DO Washhouse Hand: Signed Normal [facility] Tibia Fibula 2 Viewson 07-22 Tibia Fibula 2 Views [facility] Imaging Services [address] [place] [address] Tibia Fibula 2 Views MR#: [id number] Acct: [id number] Name: GOOD DE LUNA Rep #: [id number] : 1965 M 59 From: Ang Triana DO PCP: Dr. Mathew Cobian MD Status: PRE ER Study: Tibia Fibula 2 Views Date of Exam: 07/22/24 Exam# [id number] Ordering Dr: Provider,Ed P. [id number] INDICATION: PAIN EXAMINATION/TECHNIQUE: X-RAY - RIGHT XR [...] 17:51 EST Reading Location ID and State: [facility] / [place] Tel [phone], Service support , CC: Dr. Mathew Cobian MD; ED PHYSICIAN PROVIDER Washhouse Hand: Signed [facility] XR ANKLE AND FOOT 6 VIEWS [facility] 07-20-2024 XR ANKLE AND FOOT 6 [...] 07/20/2024 3:56:28 PM Ordering Provider: KAE BARBER [facility] XR TIBIA/FIBULA 2 VIEWS LAUREN Valles [...] 07/20/2024 3:56:28 PM Ordering Provider: KAE BARBER [facility] Lizzy 07-18-2024 [facility] (FAMVerdigris TechnologiesWS) -- GOOD [place] LUNA ([id number]) 1965 M Date Time Provider Department 07/18/24 BRIAN AHMADI [facility] During your visit today, we recorded [...] Cook Rilee, MA 07/22/2024 12:56 PM Signed Posto7hart message sent to pt asking for a [...] Diagnosis:Hypothyroidism, unspecified type [E03.9] Order(s):THYROID STIMULATING HORMONE [SQTSH] Order #: [id number] FUTURE Prescriptions as of 07/23/2024 - LORazepam [...] Status:Closed by Ashlyn LONDON on 07/23/24 Normal [facility] Basic metabolic 2000 panelon 07-12-2024 Anion gap [Moles/Vol] 14 mmol/L Normal 8-15 [facility] Comment on above: Order Comment: Speci men Type: BLOOD SPECIMENOrdering Facility: [facility] Address: [address] [place] [address] Performed By: #### 2 4321-2, , 3 ####[facility] LABCLIA [id number] [place] [address] [place] Calcium [Mass/Vol] 9.3 mg/dL Normal 8.5-10.2 [facility] Comment on above: Order Comment: Speci men Type: BLOOD SPECIMENOrdering Facility: [facility] Address: [address] [place] [address] Performed By: #### 2 4321-2, 24150-2, 3015-3 ####[facility] LABCLIA [id number] [place] [address] [place] Chloride [Moles/Vol] 104 mmol/L Normal 98-107 [facility] Comment on above: Order Comment: Speci men Type: BLOOD SPECIMENOrdering Facility: [facility] Address: [address] [place] [address] Performed By: #### 2 4321-2, , 3 ####[facility] LABCLIA [id number] [place] [id number] [place] CO2 [Moles/Vol] 21 mmol/L Low 22-30 [facility] Comment on above: Order Comment: Speci men Type: BLOOD SPECIMENOrdering Facility: [facility] Address: [address] [place] [address] Performed By: #### 2 4321-2, , 3 ####[facility] LABCLIA [id number] [place] [address] [place] Creatinine [Mass/Vol] 1.01 mg/dL Normal 0.73-1.22 [facility] Comment on above: Order Comment: Speci men Type: BLOOD SPECIMENOrdering Facility: [facility] Address: [address] [place] [address] Performed By: #### 2 4321-2, , 3 ####[facility] LABCLIA [id number] [place] [address] [place] Creatinine and Glomerular filtration rate.predicted panel (S/P/Bld) 87 mL/min/1.73m??? Normal >=60 [facility] Comment on above: Order Comment: Speci men Type: BLOOD SPECIMENOrdering Facility: [facility] Address: [address] [place] [address] Result Comment: Heidi mated Glomerular Filtration Rate [...] GFR. Performed By: #### 2 4321-2, , 3015-09 ####[facility] LABCLIA [id number] [address] [address] [place] Glucose [Mass/Vol] 95 mg/dL Normal 74-99 [facility] Comment on above: Order Comment: Speci men Type: BLOOD SPECIMENOrdering Facility: [facility] Address: [address] [place] [address] Result Comment: The [place] Diabetes Association (ADA) provides guidance for cutoff [...] Standards of Medical Care in Diabetes 2016, [place] [employer]. Diabetes Care. 2016.39(Suppl 1). Performed By: #### 2 4321-2, , 3015-09 ####[facility] LABCLIA [id number] [address] [address] [place] Potassium [Moles/Vol] 4.6 mmol/L Normal 3.7-5.1 [facility] Comment on above: Order Comment: Speci men Type: BLOOD SPECIMENOrdering Facility: [facility] Address: [address] [place] [address] Performed By: #### 2 4321-2, , 3015-09 ####[facility] LABCLIA [id number] [address] [address] [place] Sodium [Moles/Vol] 139 mmol/L Normal 136-144 [facility] Comment on above: Order Comment: Speci men Type: BLOOD SPECIMENOrdering Facility: [facility] Address: [address] [place] [address] Performed By: #### 2 4321-2, , 3015-09 ####[facility] LABCLIA [id number] [address] [address] [place] Urea nitrogen [Mass/Vol] 15 mg/dL Normal 9-24 [facility] Comment on above: Order Comment: Speci men Type: BLOOD SPECIMENOrdering Facility: [facility] Address: [address] [place] [address] Performed By: #### 2 4321-2, , 3015-09 ####[facility] LABCLIA [id number] [place] [id number] [place] CNOVon 07-12-2024 CNOV Office Visit (FAMPWS ) -- GOOD DE LUNA ([id number]) 1965 M Date Time Provider Department 07/12/24 11:00 AM [facility]AN AHMADI [facility] During your visit today, we recorded the following information about you: Pulse Respiration Blood pressure Weight 67/minute 20/minute 140/88 99.8 kg Brian Ahmadi APRN.CNP 07/12/2024 11:06 AM Addendum [facility] Get labs to assess TSH Complete labs and EEG that was ordered by neurology Schedule with neurosurgery See us back in 6 months. LUCIAN Hannon Jesse, APRN.CNP 07/12/2024 11:22 AM Signed Chief Complaint Patient presents with: Follow Up: 3 month HPI Good Chacorta De Luna is a 59 year old [...] labs, EEG to finish workup. Brian Ahmadi APRN.HIGH S[employer]OL [employer]RARY MEDIA SPECIALIST RTO in 6 months, sooner if needed. This note was partly generated using Feathr voice recognition dictation and may contain some [...] F17.2 [F17.200] (more content not included)... Normal [facility] Folate SerPl-mCncon 07-12-20 Folate [Mass/Vol] 5.5 ng/mL Normal >4.7 [facility] Comment on above: Order Comment: Speci men Type: BLOOD SPECIMENOrdering Facility: [facility] Address: [address] [place] [address] Performed By: #### 2 132-9, 2284-8 ####[facility] LABCLIA [id number] [place] [address] [place] Magnesium SerPl-mCncon 07-12 Magnesium [Mass/Vol] 1.9 mg/dL Normal 1.7-2.3 [facility] Comment on above: Order Comment: Speci men Type: BLOOD SPECIMENOrdering Facility: [facility] Address: [address] [place] [address] Performed By: #### 2 4321-2, 35795-4, 3016-3 ####[facility] LABCLIA [id number] [place] [address] [place] Methylmalonate SerPl-sCncon 07-12-2024 Methylmalonate [Moles/Vol] 0.13 umol/L Normal <=0.40 [facility] Comment on above: Order Comment: [facility] Type: BLOOD SPECIMENOrdering Facility: [facility] Address: [address] [place] [address] Result Comment: This test was developed, and its performance characteristics determined by the [facility] Department of Pathology and Laboratory Medicine. It has not been cleared or approved by the FDA. The [facility] Department of Pathology and Laboratory Medicine is regulated under CLIA as qualified to perform high-complexity testing. This test is used for clinical purposes. It should not be regarded as investigational or for research. Performed By: #### 1 3964-2 ####[facility] LABCLIA [id number] [place] [address] [place] TSH SerPl-aCncon 07-12-2024 TSH Qn 11.200 m[IU]/L High 0.270-4.200 [facility] Comment on above: Order Comment: Speci men Type: BLOOD SPECIMENOrdering Facility: [facility] Address: [address] [place] [address] Performed By: #### 2 4321-2, 26031-8, 3016-3 ####[facility] HOSPITALIA [id number] [place] [id number] [place] Vit B12 SerPl-mCncon 024 Cobalamin (Vitamin B12) [Mass/Vol] 409 pg/mL Normal 232-1245 [facility] Comment on above: Order Comment: Speci men Type: BLOOD SPECIMENOrdering Facility: [facility] Address: [address] [place] [address] Performed By: #### 2 132-9, 2284-8 ####[facility] [id number] [address] OF [place] CNPAntonieta 06-12-2024 [facility]VERNELL[facility] -- GOOD DE LU[place] ([id number]) 1965 M Date Time Provider Department 06/12/24 [facility]HE[facility] COBIAN [facility] During your visit today, we recorded the [...] that he is going to have daughter mushroom picker form. Uma Jett RN Allergies As [...] Status:Closed by LAURA WHALEY on 06/13/24 [facility] Lizzy 06-10-2024 [facility] ([facility]) -- GOOD DE LU[place] ([id number]) 1965 M Date Time Provider Department 06/10/24 MATHEW COBIAN [facility] During your visit today, we recorded the following information about you: Laura Whaley MA 06/10/2024 10:10 AM Signed Pt dropped off form from [facility] stating that pt is requesting either 1) [...] moving in a week. Patient wants to mushroom picker form when completed please. Meena Garcia LPN 06/18/2024 4:22 PM Signed Patient is calling re: status of form. Needing FRANCIA or will have to pay extra $300 that he does not have. Gypsy Meadows LPN, APRN.PATTIE 06/27/2024 8:12 AM Signed Form has been completed and ready for mushroom picker. Patient has been notified. Gypsy Ayala APRN.PATTIE Allergies As of Date: 06/10/2024 (No Known [...] Encounter Status:Closed by GYPSY AYALA on 06/27/24 [facility] 06-07-2024 [facility] (FAMPWS[facility] -- [place] ([id number]) 1965 M Date Time Provider Department 06/07/24 [facility] During your visit today, we recorded [...] Encounter Status:Closed by DEVI CISSE on 06/09/24 Denise [facility] Lizzy 06-03-2024 [facility] Telephone (PNMDNA) -- CAL[place]GOOD ([id number]) 1965 M Date Time Provider Department 06/03/24 [...] Status:Closed by DEVI CISSE on 06/03/24 [facility] CNOVon 05-22-2024 CNOV Office Visit (GENSWS ) -- GOOD DE LU[place] ([id number]) 1965 M Date Time Provider Department 05/22/24 11:15 AM JENNIFER GALICIA During your visit today, we recorded the following information about you: Pulse Blood pressure 68/minute 111/72 Jennifer Galicia APRN.H[employer]OL LIBRARY MEDIA SPECIALIST 05/22/2024 2:48 PM Signed FOLLOW UP VISIT - ENDOSCOPY Good De Luna 1965 [id number] REFERRING PHYSICIAN: No referring provider defined for [...] cold biopsy forceps. Resected and retrieved. Clip drip molder: [employer] Clip (MR safe) was placed. - Eight [...] needed for worsening/no improvement. _ Jennifer Galicia APRN.H[employer]RARY MEDIA SPECIALIST Allergies As of Date: 05/22/2024 (No Known [...] [M54.9] 07/ (more content not included)... Normal [facility] CNOVon 05-17-2024 CNOV Office Visit (UCWSTR ) -- DE LUNAGOOD BATES ([id number]) 1965 M Date Time Provider Department 05/17/24 1:00 PM PREMA TURNER WSTR During your visit today, we recorded the following information about you: Temperature Pulse Respiration Blood pressure 97.5 degrees 54/minute 20/minute 110/71 Weight 101.8 kg Prema Turner, RETAIL SALES SPECIALIST.HIGH [employer]OL LIBRARY MEDIA SPECIALIST 05/17/2024 1:10 PM Signed This note was created using HiGearriter. Subjective Good De Luna is a 58 [...] Date Reviewed: 05/17/2024 Reviewed by: Prema Turner APRN.CNP - Fully Assessed Reason for Visit: Trauma [...] your famil (more content not included)... Normal [facility] Lizzy 05-16-2024 [facility] (FAMPWS[facility] -- GOOD [place] ([id number]) 1965 M Date Time Provider Department 05/16/24 MATHEW COBIAN During your visit today, we recorded the following information about you: Ashlyn London RN 05/16/2024 2:36 PM Signed Patient asking pcp to write an updated letter, stating he needs an emotional support animal. Reports he is moving and the place he's moving to needs an updated letter. Please send to patient, via Zapnip. Address verified. Mahtew Cobian MD 05/16/2024 4:25 PM Signed Letter [...] Status:Closed by LAURA WHALEY on 05/16/24 [facility] ANES POSTPROC EVALon 024 ANES POSTPROC EVAL HNO ID: [id number] Author: SUNDAY HUTTON MD Service: Anesthesiology Author Type: Anesthesiologist Type: Anesthesia Postprocedure Evaluation Filed: 05/13/2024 10:46 Note Text: POST ANESTHESIA EVALUATION NOTE : 1965 Procedure Summary Date: 05/13/24 Room / Location: [facility] Endoscopy Anesthesia Start: 816 Anesthesia Stop: 936 Procedure: COLONOSCOPY DIAGNOSTIC Diagnosis: Diverticulitis Bloody stools (Unexplained GI bleeding Hematochezia) Scheduled Providers: Gilson Bar DO; Yuko Silva APRN.STRIPPER AND OPAQUER APPRENTICE; Sunday Hutton MD Responsible Provider: Sunday Hutton [...] May 13, 2024 TIME: 10:46 AM CSN: [id number] Normal [facility] ANES PRE-OPon 05-13-2024 ANES PRE-OP HNO ID: [id number] Author: SUNDAY HUTTON MD Service: Anesthesiology Author Type: Anesthesiologist Type: Anesthesia Preprocedure Evaluation Filed: 05/13/2024 07:51 Note Text: ANESTHESIOLOGY DAY OF SURGERY NOTE : 1965 Procedure Information Date/Time: 05/13/24 0815 Scheduled providers: Gilson Bar DO; Yuko Silva APRN.STRIPPER AND OPAQUER APPRENTICE; Sunday Hutton MD Procedure: COLONOSCOPY DIAGNOSTIC Location: [facility] Endoscopy Estimated body mass index [...] and consent discussed: yes. Patient / Responsible Democrat agrees to proceed: yes Patient / Surrogate agrees to blood products: blood products not planned Significant changes in the patient condition since the History and Physical, not otherwise documented in primary service progress note: no. Vitals Value Taken Time BP 116/63 05/13/24728 Pulse 48 05/13/24728 Resp 16 05/13/24728 Temp 36.7 ?C (98.1 ?F) 05/13/24728 SpO2 98 % 05/13/24728 Facility-Administered Medications as [...] May 13, 2024 TIME: 7:50 AM CSN: [id number] [facility] CASE MANAGEMon 05-13-2024 CASE MANAGEM HNO ID: [id number] Author: FRANKLYN FREEDMAN RN Service: ? Author [...] ensure compliance with [facility] policy regarding Inpatient Admission and Observation Services. [...] physician's order as documented evidence of concurrence. [facility] CASE MGT INENMANUEL CONTRERAS [facility]: [id number] Author: MENDEZ DEVINE RN Service: ? Author [...] Home Advance Directives Current Advance Directive: None Smeller Attempted to Assist with AD Completion: Yes [...] stick) Discharge Planning Patient Goal(s): General wellness [place] Choice Explained: [place] Given: No Reason Not Given: No placements necessary Are you interested in bedside delivery of your medications? No, [facility] in [place] Discharge Planning Participant(s): Patient Patient/Family Comments: Caregiver [...] to complete assessment. Patient from home alone, [employer], drives. Daughter to transport. CM assigned will continue to follow for DC planning needs. SIGNATURE: Mendez Devine RN PATIENT NAME: Good De Luna DATE: May 13, 2024 TIME: 11:32 AM CONTACT #: [phone] [facility] CNCOon 05-13-2024 CNCO Letter Text [facility] CNDSon 05-13-2024 CNDS HNO ID: [id number] Author: GILSON BAR DO Service: General Surgery [...] May 13, 2024 TIME: 5:44 PM Normal [facility] Colonoscopyon 05-13-2024 Colonoscopy [facility] Gastrointestinal Endoscopy Patient Name: Good De Luna Procedure Date: 05/13/2024 8:00 AM Date of : 1965 Admit Type: Outpatient Age: 58 Room: [facility] Gender: Male Note Status: Finalized Attending MD: Gilson Bar , , [id number] Procedure: Colonoscopy Indications: Evaluation of unexplained GI [...] physician, the nurse, the anesthesiologist and the cylinder handler in the pre-procedure area in the endoscopy [...] clip was successfully placed (MR safe). Clip drip molder: [employer] There was no bleeding at the end of the procedure. Eight sessile polyps were found in the rectum. The polyps were 1 to 4 mm in size. These polyps were removed with a cold biopsy forceps. Resection and retrieval were complete. Many large-mouthed, medium-mouthed and small-mouthed diverticula (more content not included)... Normal [facility] Flexible sigmoidoscopy study on 05-13-2024 [facility] Gastrointestinal Endoscopy Patient Name: Good De Luna Procedure Date: 05/13/2024 8:00 AM Date of : 1965 Admit Type: Outpatient Age: 58 Room: [facility] Gender: Male Note Status: Finalized Attending MD: Gilson Bar , , [id number] Procedure: Colonoscopy Indications: Evaluation of unexplained GI [...] physician, the nurse, the anesthesiologist and the cylinder handler in the pre-procedure area in the endoscopy [...] a cold (more content not included)... PROVATION [facility] Radiology Study observation (narrative) [facility] NURSING PROGon 05-13-2024 NURSING PROG HNO ID: [id number] Author: PATRICIA BAI, RN Service: Nursing Author Type: Registered Nurse Type: Nursing Progress Note Filed: 05/13/2024 10:53 Note Text: Other: 1020- made aware of Pt's HR. Orders received. 1040- Dr. Hutton iupdated on patient's HR. 1045- Pt c/o chest heaviness. Dr. Hutton at bedside. No new orders. Per Dr. Hutton patient ok to send to the floor. [facility] SURGICAL PATHOLOGYon 024 CASE REPORT [facility] Comment on above: Order Comment: Mejia mckenzie Type: TISSUE SPECIMEN Ordering Facility: [facility] Address: [address] [place] [address] Result Comment: Surg ical Pathology Report Case: [id number] Authorizing Provider: Gilson Bar DO Collected: 05/13/2024 08:37 AM Ordering Location: [facility] Endoscopy Received: 05/13/2024 10:19 AM Pathologist: Isidro Zarco MD, PhD Specimens: A) - Colon, Ascending Polyp, Ascending Colon Polyps times 2 B) - Colon, Sigmoid, Polyp, Sigmoid Colon Polyp @ 40cm; Spot Ink above/below C) - Colon, Sigmoid, Polyp, Sigmoid Colon Polyps times 2 D) - Rectum, Polyp, Rectal Polyps times 8 Performed By: #### S #### [facility] CLIA [id number] [address] [place] [address] [place] DIAGNOSIS COMMENT Comment A: The histo logic features in these polyps do not reach our threshold for sessile serrated adenoma/polyp. Nonetheless, given the anatomic location, close colonoscopic follow-up is recommended. [facility] Comment on above: Order Comment: Mejia mckenzie Type: TISSUE SPECIMEN Ordering Facility: [facility] Address: [address] [place] [address] Performed By: #### S #### [facility] CLIA [id number] [address] [place] [address] [place] FINAL DIAGNOSIS [facility] Comment on above: Order Comment: Mejia mckenzie Type: TISSUE SPECIMEN Ordering Facility: [facility] Address: [address] [place] [address] Result Comment: A. A scending colon polyps, biopsy: -Tubular adenoma fragments (x4). -Separate fragments of serrated polyp, see comment. B. Sigmoid colon polyp at 40 cm, biopsy: -Hyperplastic polyp. C. Sigmoid colon polyps, biopsy: -Multiple fragments of hyperplastic polyps. D. Rectum polyps, biopsy: -Tubular adenoma fragments (x 2). -Multiple fragments of hyperplastic polyps. Performed By: #### S #### [facility] CLIA [id number] [address] [place] [address] OF [facility] FINAL PERFORMING LAB [facility] Comment on above: Order Comment: Mejia mckenzie Type: TISSUE SPECIMEN Ordering Facility: [facility] Address: [address] [place] [address] Result Comment: Diag nostic interpretation performed at [facility], [address] [place] [address] CLIA# [id number] Director Of Business Continuity: Marek Martines M.D. Performed By: #### S #### [facility] CLIA [id number] [address] [place] [address] OF [facility] GROSS DESCRIPTION [facility] Comment on above: Order Comment: Mejia mckenzie Type: TISSUE SPECIMEN Ordering Facility: [facility] Address: [address] [place] [address] Result Comment: A. C olon, Ascending Polyp [...] submitted two cassettes. Gross examination performed at [facility], [address] [place] [address] May 13, 2024 3:41 PM Performed By: #### S #### [facility] CLIA [id number] [address] [place] [address] [place] [address] [place] HISTORY PHYSICALon HISTORY PHYSICAL HNO ID: [id number] Author: GILSON BAR DO Service: General Surgery [...] Date: May 12, 2024 Time: 5:55 PM [facility] 05-08-2024 [facility] Office Visit (GENSWS ) -- GOOD DE LUNA ([id number]) 1965 M Date Time Provider Department 05/08/24 [...] Resolved Resolved By Diverticulitis 04/30/2024 Brian Ahmadi, RETAIL SALES SPECIALIST.[employer]IGH SCHOOL LIBRARY MEDIA SPECIALIST No Recurrent major depressive disorder, remission status unspecified (HCC) 10/17/2023 Mathew Cobian MD No Prostate cancer (HCC) 10/17/2023 E (more content not included)... Normal [facility] HISTORY PHYSICALon HISTORY PHYSICAL HNO ID: [id number] Author: GILSON BAR, DO Service: ? Author [...] Resolved Resolved By Diverticulitis 04/30/2024 Brian Ahmadi APRN.HIGH SCHOOL LIBRARY MEDIA SPECIALIST No Recurrent major depressive disorder, remission status unspecified (HCC) 10/17/2023 Mathew Cobian MD No Prostate cancer (HCC) 10/17/2023 Mathew Cobian MD No Congenital diplegia (HCC) 05/27/2021 Bebb, Rochelle, PT, DPT No Spasticity 05/27/2021 Bebb, Rochelle, PT, DPT No Costochondritis 05/27/2021 Bebb, Rochelle, PT, DPT No Localized osteoporosis ([place]) 05/27/2021 Bebb, Rochelle, PT, DPT No Cerebral palsy (HCC) Mathew Cobian MD No Nicotine use disorder, F17.2 02/11/2019 Zabrina Cevallos, DO No Back pain 02/10/2019 Zabrina Cevallos, DO No Chronic bilateral low back pain with right-sided sciatica 01/10/2018 Ray Giraldo, KEILA No Spinal stenosis of lumbar region 12/12/2017 Brian Ahmadi, KALEB.HIGH SCHOOL LIBRARY MEDIA SPECIALIST No Overview Signed 12/12/2017 7:47 AM by Brian Ahmadi (Waiter/Waitress Room Service) MRI 11/2017 [facility] Thoracic or lumbosacral neuritis or radiculitis, [...] Anorectal: D (more content not included)... Normal [facility] CNOVon 05-03-2024 CNOV Office Visit (FAMPWS ) -- GOOD DE LUNA ([id number]) 1965 M Date Time Provider Department 05/03/24 10:40 AM [facility] visit today, we recorded the following information about you: Temperature Pulse Respiration Blood pressure 97.7 degrees 79/minute 20/minute 120/80 Weight 100.7 kg Brian Ahmadi APRN.[facility] 05/03/2024 10:46 AM Signed Chief Complaint [...] Continue to see general surgery. Brian Ahmadi APRN.HIGH SCHOOL LIBRARY MEDIA SPECIALIST RTO if symptoms return. This note was partly generated using [employer] voice recognition dictation and may contain some [...] Service: OFFICE/OUTPATIENT ESTABLISHED LOW MDM 20 MIN [59866] Additional E/M codes: VISIT CPLX INHERENT EANDM ASSOC WITH MED * Letter Text Encounter Status:Closed by ERIC AHMADI (more content not included)... Normal [facility] PSA SerPl-ncon 05-03-2024 Prostate specific Ag [Mass/Vol] 1.21 ng/mL Normal <2.60 [facility] Comment on above: Order Comment: Speci men Type: BLOOD SPECIMENOrdering Facility: [facility] Address: [address] [place] [address] Result Comment: Tota l PSA test methodology used is the Electrochemiluminescence Immunoassay by [employer]. Total PSA values by differing methodologies cannot be interchanged. Performed By: #### 2 857-1 ####[facility] [id number] [place] [address] [place] CNOVon 04-30-2024 CN Office Visit (FAMPWS ) -- GOOD DE LUNA ([id number]) 1965 M Date Time Provider Department 04/30/24 1:20 PM BRIAN AHMADI During your visit today, we recorded the following information about you: Temperature Pulse Respiration Blood pressure 97.7 degrees 64/minute 16/minute 114/76 Weight 103 kg Brian AhmadiKALEB.PATTIE 04/30/2024 2:12 PM Signed Chief Complaint Patient presents with: ER F/U: [facility] ER diverticulitis 04/23/2024 HPI Good De Luna is a 58 year old male who presents here today for Hospital Discharge Follow up. follow up for diverticulitis. Patient presenting for emergency room follow-up. Patient went to [facility] on April 23 for complaints of rectal [...] was originally referred to Dr. Wood at [facility] but has not made an appointment. We [...] 562.11, ICD10: K57.92 (primary diagnosis) -Diagnosed in [facility]. Last day of Augmentin. Not responding to [...] VACCINE AGE 12+ YR (COMIRNATY) Brian Ahmadi APRN.HIGH SCHOOL LIBRARY MEDIA SPECIALIST RTO in 3 days I spent a total of 31 minutes on the date of the service which included preparing to see the patient, eofi-hq-kvlt patient care, completing clinical documentation, obtaining and/or reviewing separately obtained history, performing a medically appropriate examination, counseling and educating the patient/family/caregiver, and ordering medications, tests, or procedures. This note was partly generated using [employer] voice recognition dictation and may contain some misspelled or inaccurate words missed on review. Allergies As of Date: 04/30/2024 (No Known Allergies) Date Reviewed: 04/30/2024 Reviewed by: Rola Riojas LPN - Fully Assessed Reason for Visit: ER F/U [41] Cmt: [facility] ER diverticulitis 04/23/2024 Primary Visit Diagnosis:Diverticulitis [K57.92] Other Visit Diagnoses:Bloody stools [K92.1] Encounter for immunization [Z23] Order(s):PFIZER-BIONTECH COVID-19 VACCINE AGE 12+ YR (COMIRNATY) [99185XST] Order #: [id number] cefdinir (OMNICEF) 300 mg capsuleTake 1 capsule by mouth two times a day for 7 days.Disp: 14 capsuleRfl: 0 metroNIDAZOLE (FLAGYL) 500 mg tabletTake 1 tablet by mouth every 8 hours for 7 days.Disp: 21 tabletRfl: 0 CONSULT TO GENERAL SURGERY [9011] Order #: [id number]: 1 FUTURE Prescriptions as of 04/30/2024 - [...] patient preference (more content not included)... Normal [facility] CNCOon 04-24-2024 CNCO Letter Text Normal [facility] 12 Lead EKGon 04-23-2024 12 Lead EKG [facility] Cardiovascular Services [address] [place] [address] 12 Lead EKG 04/23/24 1556 MR#: [id number] Acct: [id number] Name: GOOD DE LUNA Rep #: [id number] : 1965 58 From: Erick Sigala MD [...] Abnormal ECG Confirmed by ERICK SIGALA MD ([id number]), order editor RENARD WILSON ([id number]) on 04/25/2024 1:20:26 PM Referred By: Confirmed By:ERICK SIGALA MD 04/25/24 1320 Date Erick Sigala MD CC: Dr. Mathew Cobian MD; Dr. Franklyn Donaldson DO Signed Normal [facility] CBC W/Diff, Automatedon 10-0 Absolute Neut Normal 2.0-7.7 [facility] Comment on above: Result Comment: Canc elled via OM: MD Ordered Performed By: #### L 100.0100 ####[facility] [address] [place], [address] HCT Normal 40-54 [facility] Comment on above: Result Comment: Canc elled via OM: MD Ordered Performed By: #### L 100.0100 ####[facility] [address] [place], [address] HGB Normal 13.0-16.5 [facility] Comment on above: Result Comment: Canc elled via OM: MD Ordered Performed By: #### L 100.0100 ####[facility] [address] [place], [address] MCH Normal 27.0-32.0 [facility] Comment on above: Result Comment: Canc elled via OM: MD Ordered Performed By: #### L 100.0100 ####[facility] [address] [place], [address] MCHC Normal 32-36 [facility] Comment on above: Result Comment: Canc elled via OM: MD Ordered Performed By: #### L 100.0100 ####[facility] [address] [place], [address] MCV Normal 80-94 [facility] Comment on above: Result Comment: Canc elled via OM: MD Ordered Performed By: #### L 100.0100 ####[facility] [address] [place], [address] NEUT% Normal 47-70 [facility] Comment on above: Result Comment: Canc elled via OM: MD Ordered Performed By: #### L 100.0100 ####[facility] [address] [place], [address] PLT Normal 150-450 [facility] Comment on above: Result Comment: Canc elled via OM: MD Ordered Performed By: #### L 100.0100 ####[facility] [address] [place], [address] RBC Normal 4.6-6.2 [facility] Comment on above: Result Comment: Canc elled via OM: MD Ordered Performed By: #### L 100.0100 ####[facility] [address] [place], [address] RDW CV Normal 11.6-14.6 [facility] Comment on above: Result Comment: Canc elled via OM: MD Ordered Performed By: #### L 100.0100 ####[facility] [address] [place], [address] RDW SD Normal 35.1-43.9 [facility] Comment on above: Result Comment: Canc elled via OM: MD Ordered Performed By: #### L 100.0100 ####[facility] [address] [place], [address] WBC Normal 4.4-11.0 [facility] Comment on above: Result Comment: Canc elled via OM: MD Ordered Performed By: #### L 100.0100 ####[facility] [address] [place], [address] Absolute Lymph 2.33 X10 3/uL Normal 0.83-4.51 [facility] Comment on above: Performed By: #### L 501.4020, BTS, L500.4050, L501.2450, L100.0100 ####[facility] [address] [place], [address] Absolute Neut 6.6 X10 3/uL Normal 2.0-7.7 [facility] Comment on above: Performed By: #### L 501.4020, BTS, L500.4050, L501.2450, L100.0100 ####[facility] [address] [place], [address] Basophils/100 WBC (Bld) 0.3 % Normal 0-1 [facility] Comment on above: Performed By: #### L 501.4020, BTS, L500.4050, L501.2450, L100.0100 ####[facility] [address] [place], [address] Eosinophils/100 WBC (Bld) 1.2 % Normal 0-5 [facility] Comment on above: Performed By: #### L 501.4020, BTS, L500.4050, L501.2450, L100.0100 ####[facility] [address] [place], [address] Erythrocyte distribution width (RBC) [Ratio] 12.5 % Normal 11.6-14.6 [facility] Comment on above: Performed By: #### L 501.4020, BTS, L500.4050, L501.2450, L100.0100 ####[facility] [address] [place], [address] Hematocrit (Bld) [Volume fraction] 42.2 % Normal 40-54 [facility] Comment on above: Performed By: #### L 501.4020, BTS, L500.4050, L501.2450, L100.0100 ####[facility] [address] [place], [address] Hemoglobin (Bld) [Mass/Vol] 13.7 g/dL Normal 13.0-16.5 [facility] Comment on above: Performed By: #### L 501.4020, BTS, L500.4050, L501.2450, L100.0100 ####[facility] [address] [place], [address] IG% 0.700 Normal 0.0-0.9 [facility] Comment on above: Result Comment: IG% - Immature Granulocytes (promyelocytes, myelocytes and metamyelocytes) > 1% indicates that a LEFT SHIFT is Present. Performed By: #### L 501.4020, BTS, L500.4050, L501.2450, L100.0100 ####[facility] [address] [place], [address] Lymphocytes/100 WBC (Bld) 23.3 % Normal 19-41 [facility] Comment on above: Performed By: #### L 501.4020, BTS, L500.4050, L501.2450, L100.0100 ####[facility] [address] [place], [address] MCH (RBC) [Entitic mass] 29.4 pg Normal 27.0-32.0 [facility] Comment on above: Performed By: #### L 501.4020, BTS, L500.4050, L501.2450, L100.0100 ####[facility] [address] [place], [address] MCHC (RBC) [Mass/Vol] 32.5 g/dL Normal 32-36 [facility] Comment on above: Performed By: #### L 501.4020, BTS, L500.4050, L501.2450, L100.0100 ####[facility] [address] [place], [address] MCV (RBC) [Entitic vol] 90.6 fL Normal 80-94 [facility] Comment on above: Performed By: #### L 501.4020, BTS, L500.4050, L501.2450, L100.0100 ####[facility] [address] [place], [address] Monocytes/100 WBC (Bld) 8.4 % Normal 0-10 [facility] Comment on above: Performed By: #### L 501.4020, BTS, L500.4050, L501.2450, L100.0100 ####[facility] [address] [place], [address] Neutrophils/100 WBC (Bld) 66.1 % Normal 47-70 [facility] Comment on above: Performed By: #### L 501.4020, BTS, L500.4050, L501.2450, L100.0100 ####[facility] [address] [place], [address] Nucleated RBC (Bld) [#/Vol] 0 10*3/uL Normal 0-5 [facility] Comment on above: Performed By: #### L 501.4020, BTS, L500.4050, L501.2450, L100.0100 ####[facility] [address] [place], [address] Platelet mean volume (Bld) [Entitic vol] 11.4 fL Normal 6.2-12.0 [facility] Comment on above: Performed By: #### L 501.4020, BTS, L500.4050, L501.2450, L100.0100 ####[facility] [address] [place], [address] Platelets (Bld) [#/Vol] 244 10*3/uL Normal 150-450 [facility] Comment on above: Performed By: #### L 501.4020, BTS, L500.4050, L501.2450, L100.0100 ####[facility] [address] [place], [address] RBC (Bld) [#/Vol] 4.66 10*6/uL Normal 4.6-6.2 [facility] Comment on above: Performed By: #### L 501.4020, BTS, L500.4050, L501.2450, L100.0100 ####[facility] [address] [place], [address] RDW SD 40.8 fl Normal 35.1-43.9 [facility] Comment on above: Performed By: #### L 501.4020, BTS, L500.4050, L501.2450, L100.0100 ####[facility] [address] [place], [address] WBC (Bld) [#/Vol] 10.0 10*3/uL Normal 4.4-11.0 [facility] Comment on above: Performed By: #### L 501.4020, BTS, L500.4050, L501.2450, L100.0100 ####[facility] [address] [place], [address] CTA Abd/Pelvis W/WO Contrast on 04-23-2024 CTA Abd/Pelvis W/WO Contrast [facility] Imaging Services [address] [place] [address] CTA Abd/Pelvis W/WO Contrast MR#: [id number] Acct: [id number] Name: GOOD DE LUNA Rep #: [id number] : 1965 M 58 From: Ronald Hood MD PCP: Dr. Mathew Cobian MD Status: [facility] Study: CTA Abd/Pelvis W/WO Contrast Date of Exam: 08/16 Exam# [id number] Ordering Dr: Franklyn Donaldson DO [id number] INDICATION: abd pain, bloody bowel movements X2 [...] Signed: Ronald Hood MD at 17:17 EDT Reading Location ID and State: [facility] / [place] Tel , Service support , CC: Dr. Mathew Cobian MD; Dr. Franklyn Donaldson DO [place] Hand: Signed Normal [facility] Comprehensive Metabolic Prof ilon 04-23-2024 Albumin [Mass/Vol] 3.6 g/dL Normal 3.2-5.0 [facility] Comment on above: Order Comment: 'TROP ' Serial specimen #1, #2 or #3: 1 Performed By: #### L 501.4020, BTS, L500.4050, L501.2450, L100.0100 ####[facility] [address] [place], [address] Albumin/Globulin [Mass ratio] 0.9 {ratio} Normal 0.9-2.4 [facility] Comment on above: Order Comment: 'TROP ' Serial specimen #1, #2 or #3: 1 Performed By: #### L 501.4020, BTS, L500.4050, L501.2450, L100.0100 ####[facility] [address] [place], [address] ALK P 92 U/L Normal 45-117 [facility] Comment on above: Order Comment: 'TROP ' Serial specimen #1, #2 or #3: 1 Performed By: #### L 501.4020, BTS, L500.4050, L501.2450, L100.0100 ####[facility] [address] [place], [address] ALT [Catalytic activity/Vol] 31 U/L Normal 16-61 [facility] Comment on above: Order Comment: 'TROP ' Serial specimen #1, #2 or #3: 1 Performed By: #### L 501.4020, BTS, L500.4050, L501.2450, L100.0100 ####[facility] [address] [place], [address] AST [Catalytic activity/Vol] 15 U/L Normal 15-37 [facility] Comment on above: Order Comment: 'TROP ' Serial specimen #1, #2 or #3: 1 Performed By: #### L 501.4020, BTS, L500.4050, L501.2450, L100.0100 ####[facility] [address] [place], [address] Bilirubin [Mass/Vol] 0.30 mg/dL Normal 0.20-1.00 [facility] Comment on above: Order Comment: 'TROP ' Serial specimen #1, #2 or #3: 1 Result Comment: For patients on eltrombopag therapy, use of Dimension [place] TBIL is not recommended. Performed By: #### L 501.4020, BTS, L500.4050, L501.2450, L100.0100 ####[facility] [address] [place], [address] BUN/CRE 17.2 RATIO Normal 10-20 [facility] Comment on above: Order Comment: 'TROP ' Serial specimen #1, #2 or #3: 1 Performed By: #### L 501.4020, BTS, L500.4050, L501.2450, L100.0100 ####[facility] [address] [place], [address] CA,Total 9.2 mg/dL Normal 8.5-10.1 [facility] Comment on above: Order Comment: 'TROP ' Serial specimen #1, #2 or #3: 1 Performed By: #### L 501.4020, BTS, L500.4050, L501.2450, L100.0100 ####[facility] [address] [place], [address] Chloride [Moles/Vol] 107 mmol/L Normal 98-107 [facility] Comment on above: Order Comment: 'TROP ' Serial specimen #1, #2 or #3: 1 Performed By: #### L 501.4020, BTS, L500.4050, L501.2450, L100.0100 ####[facility] [address] [place], [address] CO2 [Moles/Vol] 25.0 mmol/L Normal 21.0-32.0 [facility] Comment on above: Order Comment: 'TROP ' Serial specimen #1, #2 or #3: 1 Performed By: #### L 501.4020, BTS, L500.4050, L501.2450, L100.0100 ####[facility] [address] [place], [address] Creatinine [Mass/Vol] 1.16 mg/dL Normal 0.70-1.30 [facility] Comment on above: Order Comment: 'TROP ' Serial specimen #1, #2 or #3: 1 Result Comment: The validity of the calculated GFR GFRAA in patients over 70 years has not been determined. Clinical correlation is essential. Performed By: #### L 501.4020, BTS, L500.4050, L501.2450, L100.0100 ####[facility] [address] [place], [address] ECRCL 78.99 ml/min Normal [facility] Comment on above: Order Comment: 'TROP ' Serial specimen #1, #2 or #3: 1 Performed By: #### L 501.4020, BTS, L500.4050, L501.2450, L100.0100 ####[facility] [address] [place], [address] EST GFR - AA 84 mL/min Normal >60 [facility] Comment on above: Order Comment: 'TROP ' Serial specimen #1, #2 or #3: 1 Result Comment: Afri can [place] GFR Calc Performed By: #### L 501.4020, BTS, L500.4050, L501.2450, L100.0100 ####[facility] [address] [place], [address] GAP 6 Normal 5-15 [facility] Comment on above: Order Comment: 'TROP ' Serial specimen #1, #2 or #3: 1 Performed By: #### L 501.4020, BTS, L500.4050, L501.2450, L100.0100 ####[facility] [address] [place], [address] GFR/1.73 sq M.predicted among non-blacks MDRD (S/P/Bld) [Vol rate/Area] 69 mL/min/{1.73_m2} Normal >60 [facility] Comment on above: Order Comment: 'TROP ' Serial specimen #1, #2 or #3: 1 Result Comment: Non- GFR Calc Performed By: #### L 501.4020, BTS, L500.4050, L501.2450, L100.0100 ####[facility] [address] [place], [address] Globulin (S) [Mass/Vol] 4.0 g/dL Normal 2.2-4.2 [facility] Comment on above: Order Comment: 'TROP ' Serial specimen #1, #2 or #3: 1 Performed By: #### L 501.4020, BTS, L500.4050, L501.2450, L100.0100 ####[facility] [address] [place], [address] Glucose [Mass/Vol] 96 mg/dL Normal 74-106 [facility] Comment on above: Order Comment: 'TROP ' Serial specimen #1, #2 or #3: 1 Performed By: #### L 501.4020, BTS, L500.4050, L501.2450, L100.0100 ####[facility] [address] [place], [address] Potassium [Moles/Vol] 4.0 mmol/L Normal 3.5-5.1 [facility] Comment on above: Order Comment: 'TROP ' Serial specimen #1, #2 or #3: 1 Performed By: #### L 501.4020, BTS, L500.4050, L501.2450, L100.0100 ####[facility] [address] [place], [address] Sodium [Moles/Vol] 138 mmol/L Normal 136-145 [facility] Comment on above: Order Comment: 'TROP ' Serial specimen #1, #2 or #3: 1 Performed By: #### L 501.4020, BTS, L500.4050, L501.2450, L100.0100 ####[facility] [address] [place], [address] T PROT 7.6 g/dL Normal 6.4-8.2 [facility] Comment on above: Order Comment: 'TROP ' Serial specimen #1, #2 or #3: 1 Performed By: #### L 501.4020, BTS, L500.4050, L501.2450, L100.0100 ####[facility] [address] [place], [address] Urea nitrogen [Mass/Vol] 20 mg/dL High 7-18 [facility] Comment on above: Order Comment: 'TROP ' Serial specimen #1, #2 or #3: 1 Performed By: #### L 501.4020, BTS, L500.4050, L501.2450, L100.0100 ####[facility] [address] [place], [address] Emergency Department Summary on 04-23-2024 Emergency Department Summary [facility] Medical Records Department [address] [place] [address] Emergency Department Summary 04/23/24 MR#: [id number] Acct: [id number] Name: GOOD DE LUNA Rep #: [id number] : 1965 58 From: Franklyn Donaldson DO [...] otherwise feels well denies any sick contacts. [facility] Medical History Alcohol abuse Anxiety History [...] follow commands knew that he was at [facility] years 2023 Skin: Warm, dry, intact [...] evidence leukocy (more content not included)... Normal [facility] L501.4020on 04-23-2024 TROPONIN-I HS 6 pg/mL Normal 3.0-78.0 [facility] Comment on above: Order Comment: 'TROP ' Serial specimen #1, #2 or #3: 1 Result Comment: Plea se Note: New Test Units and Gender Specific Reference Ranges. For more information see Policy Stat Procedure [place] High Sensitivity Troponin (TNIH) and attachments. Performed By: #### L 501.4020, BTS, L500.4050, L501.2450, L100.0100 ####[facility] [address] [place], [address] Lactic Acidon 04-23-2024 Lactate [Moles/Vol] 1.0 mmol/L Normal 0.4-1.9 [facility] Comment on above: Order Comment: Y Performed By: #### L 503.6005 #### [facility] [address] [place], [address] Lipaseon 04-23-2024 Lipase [Catalytic activity/Vol] 32 U/L Normal 13-75 [facility] Comment on above: Order Comment: 'TROP ' Serial specimen #1, #2 or #3: 1 Result Comment: Ricki summers note: LIPASE revised reference range effective 22. New Lipase methodology. Expected to produce lower values than the previous assay method. NEW Reference Range: 13 - 75 U/L Performed By: #### L 501.4020, BTS, L500.4050, L501.2450, L100.0100 ####[facility] [address] [place], [address] Stool Occult Blood iFOBon STOB Positive Normal [facility] Comment on above: Performed By: #### M 100.7900 ####[facility] [address] [place], [address] Type AND Screenon 04-23-2024 ABO and Rh group Nom (Bld) Blood group O Rh(D) positive [facility] Comment on above: Order Comment: RED W. PREVIOUS SPECIMEN REJECTED DUE TOWRITING ON FENWAL BAND SMEARED OFF;ILLEGIBLE. 04/23/24 1613A Performed By: #### B TS ####[facility] [address] [place], [address] A1 CELL Not performed [facility] Comment on above: Order Comment: A Result Comment: This specimen has been REJECTED due to Laboratory criteria: MisLabelled-WRITING ON FENWAL SMEARED OFF;ILLEGIBLE. ED-DATA INTEGRATION ARCHITECT has been notified of need of recollection. 04/23/24 1611 Performed By: #### L 501.4020, BTS, L500.4050, L501.2450, L100.0100 ####[facility] [address] [place], [address] Ab SCREEN GEL Not performed [facility] Comment on above: Order Comment: A Result Comment: This specimen has been REJECTED due to Laboratory criteria: MisLabelled-WRITING ON FENWAL SMEARED OFF;ILLEGIBLE. ED-DATA INTEGRATION ARCHITECT has been notified of need of recollection. 04/23/241610 Performed By: #### L 501.4020, BTS, L500.4050, L501.2450, L100.0100 ####[facility] [address] [place], [address] ABO and Rh group Nom (Bld) Test Not Performed Normal [facility] Comment on above: Order Comment: A Result Comment: This specimen has been REJECTED due to Laboratory criteria: MisLabelled-WRITING ON FENWAL SMEARED OFF;ILLEGIBLE. ED-DATA INTEGRATION ARCHITECT has been notified of need of recollection. 04/23/241610 Performed By: #### L 501.4020, BTS, L500.4050, L501.2450, L100.0100 ####[facility] [address] [place], [address] ANTI A Not performed Normal [facility] Comment on above: Order Comment: A Result Comment: This specimen has been REJECTED due to Laboratory criteria: MisLabelled-WRITING ON FENWAL SMEARED OFF;ILLEGIBLE. ED-DATA INTEGRATION ARCHITECT has been notified of need of recollection. 04/23/241610 Performed By: #### L 501.4020, BTS, L500.4050, L501.2450, L100.0100 ####[facility] [address] [place], [address] ANTI B Not performed Normal [facility] Comment on above: Order Comment: A Result Comment: This specimen has been REJECTED due to Laboratory criteria: MisLabelled-WRITING ON FENWAL SMEARED OFF;ILLEGIBLE. ED-DATA INTEGRATION ARCHITECT has been notified of need of recollection. 04/23/241610 Performed By: #### L 501.4020, BTS, L500.4050, L501.2450, L100.0100 ####[facility] [address] [place], [address] ANTI D Not performed Normal [facility] Comment on above: Order Comment: A Result Comment: This specimen has been REJECTED due to Laboratory criteria: MisLabelled-WRITING ON FENWAL SMEARED OFF;ILLEGIBLE. ED-DATA INTEGRATION ARCHITECT has been notified of need of recollection. 04/23/241610 Performed By: #### L 501.4020, BTS, L500.4050, L501.2450, L100.0100 ####[facility] [address] [place], [address] B CELLS Not performed Normal [facility] Comment on above: Order Comment: A Result Comment: This specimen has been REJECTED due to Laboratory criteria: MisLabelled-WRITING ON FENWAL SMEARED OFF;ILLEGIBLE. ED-DATA INTEGRATION ARCHITECT has been notified of need of recollection. 04/23/241610 Performed By: #### L 501.4020, BTS, L500.4050, L501.2450, L100.0100 ####[facility] [address] [place], [address] BLD TYPE RECHEK Not performed Normal [facility] Comment on above: Order Comment: A Result Comment: This specimen has been REJECTED due to Laboratory criteria: MisLabelled-WRITING ON FENWAL SMEARED OFF;ILLEGIBLE. ED-DATA INTEGRATION ARCHITECT has been notified of need of recollection. 04/23/241610 Performed By: #### L 501.4020, BTS, L500.4050, L501.2450, L100.0100 ####[facility] [address] [place], [address] CNOVchad 04-17-2024 CNOV Office Visit (FAMPWS ) -- GOOD DE LUNA ([id number]) 1965 M Date Time Provider Department 04/17/24 9:40 AM GYPSY AYALA During your visit today, we recorded the following information about you: Pulse Respiration Blood pressure Weight 68/minute 16/minute 122/80 104.6 kg Gypsy Ayala APRN.CNP 04/17/2024 11:30 AM Signed This is a [...] Sensation grossly (more content not included)... Normal [facility] CNOVon 04-12-2024 CNOV Office Visit (FAMPWS ) -- GOOD DE LUNA ([id number]) 1965 M Date Time Provider Department 04/12/24 10:40 AM [facility] During your visit today, we recorded the following information about you: Pulse Respiration Blood pressure Weight 61/minute 16/minute 112/70 103.9 kg Brian Ahmadi APRN.[facility] 04/12/2024 10:58 AM Signed Chief Complaint Patient presents with: Follow Up: 4 week [facility] Good Whatley Calixto is a 58 year old male [...] neurology in April with Dr. Cisse in [place]. He has been following with ear nose and throat at [place] for inner ear problems. He was given [...] medications for the past month. Brian Ahmadi APRN.[employer]IST RTO in 3 months, sooner if needed. This note was partly generated using Feathr voice recognition dictation and may contain some [...] Nicotine u (more content not included)... Normal [facility] TSH SerPl-aCncon 04-12-2024 TSH Qn 0.123 m[IU]/L Low 0.270-4.200 [facility] Comment on above: Order Comment: Speci men Type: BLOOD SPECIMENOrdering Facility: [facility] Address: [address] [place] [address] Performed By: #### 3 016-3 ####[facility] LABCLIA [id number] [place] [address] [place] CBC W Auto Differential pane l (Bld)on 12-14-2023 Basophils (Bld) [#/Vol] 0.05 10*3/uL [facility] Basophils/100 WBC (Bld) 0.5 % [facility] Differential cell count method Nom (Bld) Auto [facility] Eosinophils (Bld) [#/Vol] 0.16 10*3/uL [facility] Eosinophils/100 WBC (Bld) 1.5 % [facility] Erythrocyte distribution width (RBC) [Ratio] 12.9 % 11.5 - 15.0 % [facility] Hematocrit (Bld) [Volume fraction] 45.5 % 39.0 - 51.0 % [facility] Hemoglobin (Bld) [Mass/Vol] 14.7 g/dL 13.0 - 17.0 g/dL [facility] Immature granulocytes (Bld) [#/Vol] 0.04 10*3/uL [facility] Immature granulocytes/100 WBC (Bld) 0.4 % [facility] Interpretation and review of laboratory results Abnormal [facility] Lymphocytes (Bld) [#/Vol] 2.20 10*3/uL [facility] Lymphocytes/100 WBC (Bld) 21.0 % [facility] MCH (RBC) [Entitic mass] 29.7 pg 26.0 - 34.0 pg [facility] MCHC (RBC) [Mass/Vol] 32.3 g/dL 30.5 - 36.0 g/dL [facility] MCV (RBC) [Entitic vol] 91.9 fL 80.0 - 100.0 fL [facility] Monocytes (Bld) [#/Vol] 0.87 10*3/uL High [facility] Monocytes/100 WBC (Bld) 8.3 % [facility] Neutrophils (Bld) [#/Vol] 7.15 10*3/uL [facility] Neutrophils/100 WBC (Bld) 68.3 % [facility] Nucleated RBC (Bld) [#/Vol] NINF [facility] Nucleated RBC/100 WBC (Bld) [Ratio] 0.0 % /100 WBC [facility] Platelet mean volume (Bld) [Entitic vol] 11.8 fL 9.0 - 12.7 fL [facility] Platelets (Bld) [#/Vol] 242 10*3/uL [facility] RBC (Bld) [#/Vol] 4.95 10*6/uL 4.20 - 6.0 0 m/uL [facility] WBC (Bld) [#/Vol] 10.47 10*3/uL [facility] Comprehensive metabolic 2000 panelon 12-14-2023 Albumin [Mass/Vol] 4.4 g/dL 3.9 - 4.9 g/dL [facility] ALP [Catalytic activity/Vol] 88 U/L 38 - 113 U/L [facility] ALT [Catalytic activity/Vol] 31 U/L 10 - 54 U/L [facility] Anion gap [Moles/Vol] 15 mmol/L 9 - 18 mmol/L [facility] AST [Catalytic activity/Vol] 27 U/L 14 - 40 U/L [facility] Bilirubin [Mass/Vol] 0.3 mg/dL 0.2 - 1 .3 mg/dL [facility] Calcium [Mass/Vol] 9.7 mg/dL 8.5 - 10. 2 mg/dL [facility] Chloride [Moles/Vol] 99 mmol/L 97 - 10 5 mmol/L [facility] CO2 [Moles/Vol] 23 mmol/L 22 - 30 mmol/L [facility] Creatinine [Mass/Vol] 1.11 mg/dL 0.73 - 1.22 mg/dL [facility] GFR/1.73 sq M.predicted among non-blacks MDRD (S/P/Bld) [Vol rate/Area] 78 mL/min/{1.73_m2} - PINF [facility] Comment on above: Estimated Glomerular Filtration [...] [Mass/Vol] 95 mg/dL 74 - 99 mg/dL [facility] Comment on above: The [place] [employer] (ADA) provides guidance for [...] Standards of Medical Care in Diabetes 2016, [place] [employer]. Diabetes Care. 2016.39(Suppl 1). Interpretation and review of laboratory results Normal [facility] Potassium [Moles/Vol] 4.7 mmol/L 3.7 - 5.1 mmol/L [facility] Protein [Mass/Vol] 7.1 g/dL 6.3 - 8.0 g/dL [facility] Sodium [Moles/Vol] 137 mmol/L 136 - 144 mmol/L [facility] Urea nitrogen [Mass/Vol] 17 mg/dL 9 - 24 mg/dL [facility] FOLATE, SERUMon 12-14-2023 Folate [Mass/Vol] 18.5 ng/mL 4.7 - PINF ng/mL [facility] No Panel Informationon 12-13 Interpretation and review of laboratory results Normal [facility] Interpretation and review of laboratory results Normal [facility] T4 FREE/FREE THYROXINEon Free T4 [Mass/Vol] 1.1 ng/dL 0.9 - 1.7 ng/dL [facility] THYROID STIMULATING HORMONEo n 12-14-2023 TSH Qn 3.070 m[IU]/L [facility] VITAMIN B12on 12-14-2023 Cobalamin (Vitamin B12) [Mass/Vol] 464 pg/mL 232 - 1245 pg/mL [facility] No Panel Informationon 10-31 [facility] UA DIP, URINE (POC)on 2023 BILIRUBIN UA (POCT) Negative Negative [facility] CLARITY UA (POCT) Clear [facility] COLOR UA (POCT) Yellow [facility] GLUCOSE UA (POCT) Negative Negative mg/dL [facility] Hemoglobin Ql (U) Negative Negative [facility] KETONE UA (POCT) Trace Negative mg/dL [facility] LEUKOCYTES UA (POCT) Negative Negative [facility] NITRITE UA (POCT) Negative Negative [facility] PH UA (POCT) 6.0 4.5 - 8.0 [facility] Protein Ql (U) 30 mg/dL Abnormal Negative mg/dL [facility] SPECIFIC GRAVITY UA (POCT) 1.025 1.005 - 1.030 [facility] UROBILINOGEN UA (POCT) 0.2 E.U./dL Arti l E.U./dL [facility] 36on 10-11-2023 36 Name of caller: Rodríguez romero Relation to patient: [facility] Contact phone number: [phone] Appointment scheduled with: Dr. Taylor Appointment date & time: 10/18/23 8:00 AM Reason for visit (are you having any symptoms) : Developmental venous anomaly 09/26/23 ED admission Transportation issues/ concerns: No Special accommodations? ( wheel chair, etc) : None Current medications: No Any refills need: None Any chronic conditions the provider should be aware of: No Normal [facility] CALCIUMon 09-28-2023 Calcium [Mass/Vol] 9.0 mg/dL Normal 8.6-10.5 [facility] Comment on above: Performed By: #### I PB, CA, MGO, CHM7 #### [facility] (DEFAULT) [address] [address] Calcium [Mass/Vol] 9.0 mg/dL 8.6 - 10. 5 mg/dL [facility] CBC AND ELECTRONIC DIFFon Abs Baso Auto < Normal 0.00-0.09 [facility] Comment on above: Performed By: #### A 1CB, [id number] #### [facility] (DEFAULT) [address] [address] Basophils/100 WBC (Bld) 0.3 % Normal [facility] Comment on above: Performed By: #### A 1CB, [id number] #### [facility] (DEFAULT) [address] [place] [address] DIFF STATUS Electronic Differential Normal [facility] Comment on above: Performed By: #### A 1CB, [id number] #### [facility] (DEFAULT) [address] [place] [address] Eosinophils (Bld) [#/Vol] 0.22 10*3/uL Normal 0.00-0.48 [facility] Comment on above: Performed By: #### A 1CAntonio, [id number] #### [facility] (DEFAULT) [address] [place] [address] Eosinophils/100 WBC (Bld) 2.2 % Normal [facility] Comment on above: Performed By: #### Jonel 1CAntonio, [id number] #### [facility] (DEFAULT) [address] [place] [address] Hematocrit (Bld) [Volume fraction] 41.1 % Normal 39.6-48.8 [facility] Comment on above: Performed By: #### Jonel DEVINE, [id number] #### [facility] (DEFAULT) [address] [place] [address] Hemoglobin (Bld) [Mass/Vol] 13.4 g/dL Normal 13.4-16.8 [facility] Comment on above: Performed By: #### Jonel 1CB, [id number] #### [facility] (DEFAULT) [address] [place] [address] Immature Grans % 0.7 % Normal [facility] Comment on above: Performed By: #### Jonel 1CB, [id number] #### [facility] (DEFAULT) [address] [place] [address] Immature Grans Absolute 0.07 K/uL Normal <=0.07 [facility] Comment on above: Performed By: #### Jonel 1CB, [id number] #### [facility] (DEFAULT) [address] [place] [address] Lymphocytes (Bld) [#/Vol] 2.02 10*3/uL Normal 0.83-3.57 [facility] Comment on above: Performed By: #### Jonel 1CB, [id number] #### [facility] (DEFAULT) [address] [place] [address] Lymphocytes/100 WBC (Bld) 20.2 % Normal [facility] Comment on above: Performed By: #### A 1CB, [id number] #### [facility] (DEFAULT) [address] [place] [address] MCV (RBC) [Entitic vol] 93.0 fL Normal 79.0-94.5 [facility] Comment on above: Performed By: #### A 1CB, [id number] #### [facility] (DEFAULT) [address] [place] [address] Mean Cell Hgb 30.3 pg Normal 26.1-33.3 [facility] Comment on above: Performed By: #### Jonel 1CB, [id number] #### [facility] (DEFAULT) [address] [place] [address] Mean Cell Hgb Conc 32.6 g/dL Normal 31.9-36.5 [facility] Comment on above: Performed By: #### Jonel 1CB, [id number] #### [facility] (DEFAULT) [address] [place] [address] Monocytes (Bld) [#/Vol] 0.95 10*3/uL High 0.24-0.93 [facility] Comment on above: Performed By: #### A 1CB, [id number] #### [facility] (DEFAULT) [address] [place] [address] Monocytes/100 WBC (Bld) 9.5 % Normal [facility] Comment on above: Performed By: #### A 1CB, [id number] #### [facility] (DEFAULT) [address] [place] [address] Nucleated RBC 0.0 /100 WBC Normal <=0.2 [facility] Comment on above: Performed By: #### Jonel DEVINE, [id number] #### [facility] (DEFAULT) [address] [place] [address] Platelet mean volume (Bld) [Entitic vol] 11.6 fL Normal 8.7-12.3 [facility] Comment on above: Performed By: #### Jonel DEVINE, [id number] #### [facility] (DEFAULT) [address] [place] [address] Platelets (Bld) [#/Vol] 218 10*3/uL Normal 146-337 [facility] Comment on above: Performed By: #### Jonel DEVINE, [id number] #### [facility] (DEFAULT) [address] [place] [address] RBC (Bld) [#/Vol] 4.42 10*6/uL Normal 4.38-5.83 [facility] Comment on above: Performed By: #### Jonel DEVINE, [id number] #### [facility] (DEFAULT) [address] [place] [address] RBC Distribution 13.0 % Normal 10.9-14.3 [facility] Comment on above: Performed By: #### Jonel DEVINE, [id number] #### [facility] (DEFAULT) [address] [place] [address] Segs + Bands Auto 67.1 % Normal [facility] Comment on above: Performed By: #### Jonel DEVINE, [id number] #### [facility] (DEFAULT) [address] [place] [address] Segs + Bands,Absolute Auto 6.72 K/uL High 1.57-6.19 [facility] Comment on above: Performed By: #### Jonel DEVINE, [id number] #### [facility] (DEFAULT) [address] [place] [address] WBC (Bld) [#/Vol] 10.01 10*3/uL Normal 3.73-10.10 [facility] Comment on above: Performed By: #### A 1CB, [id number] #### [facility] (DEFAULT) [address] [place] [address] Basophils (Bld) [#/Vol] K/uL 0.00 - 0.09 K/uL [facility] Basophils/100 WBC (Bld) 0.3 % [facility] Differential cell count method Nom (Bld) Electronic Differential [facility] Eosinophils (Bld) [#/Vol] 0.22 10*3/uL 0.00 - 0.48 K/uL [facility] Eosinophils/100 WBC (Bld) 2.2 % [facility] Erythrocyte distribution width (RBC) [Ratio] 13.0 % 10.9 - 14.3 % [facility] Hematocrit (Bld) [Volume fraction] 41.1 % 39.6 - 48.8 % [facility] Hemoglobin (Bld) [Mass/Vol] 13.4 g/dL 13.4 - 16.8 g/dL [facility] Immature granulocytes (Bld) [#/Vol] 0.07 10*3/uL NINF - 0.07 K/uL [facility] Immature granulocytes/100 WBC (Bld) 0.7 % [facility] Interpretation and review of laboratory results Abnormal [facility] Lymphocytes (Bld) [#/Vol] 2.02 10*3/uL 0.83 - 3.57 K/uL [facility] Lymphocytes/100 WBC (Bld) 20.2 % [facility] MCH (RBC) [Entitic mass] 30.3 pg 26.1 - 33.3 pg [facility] MCHC (RBC) [Mass/Vol] 32.6 g/dL 31.9 - 36.5 g/dL [facility] MCV (RBC) [Entitic vol] 93.0 fL 79.0 - 94.5 fL [facility] Monocytes (Bld) [#/Vol] 0.95 10*3/uL High 0.24 - 0.93 K/uL [facility] Monocytes/100 WBC (Bld) 9.5 % [facility] Neutrophils (Bld) [#/Vol] 6.72 10*3/uL High 1.57 - 6.19 K/uL [facility] Nucleated RBC/100 WBC (Bld) [Ratio] 0.0 % NINF [facility] Platelet mean volume (Bld) [Entitic vol] 11.6 fL 8.7 - 12.3 fL [facility] Platelets (Bld) [#/Vol] 218 10*3/uL 146 - 337 K/uL [facility] RBC (Bld) [#/Vol] 4.42 10*6/uL [facility] Segmented neutrophils/100 WBC (Bld) 67.1 % [facility] WBC (Bld) [#/Vol] 10.01 10*3/uL 3.73 - 10.10 K/uL [facility] CHEM 7 (LYTES,BUN,CREA,GLUC) on 09-28-2023 Anion gap [Moles/Vol] 10 mmol/L Normal 7-17 [facility] Comment on above: Performed By: #### I PB, CA, MGO, CHM7 #### [facility] (DEFAULT) [address] [address] Chloride [Moles/Vol] 103 mmol/L Normal 98-108 [facility] Comment on above: Performed By: #### I PB, CA, MGO, CHM7 #### [facility] (DEFAULT) [address] [place] [address] CO2 [Moles/Vol] 28 mmol/L Normal 21-31 [facility] Comment on above: Performed By: #### I PB, CA, MGO, CHM7 #### [facility] (DEFAULT) [address] [address] Creatinine [Mass/Vol] 1.04 mg/dL Normal 0.70-1.30 [facility] Comment on above: Performed By: #### I PB, CA, MGO, CHM7 #### [facility] (DEFAULT) [address] [place] [address] GFR/1.73 sq M.predicted among non-blacks MDRD (S/P/Bld) [Vol rate/Area] 84 mL/min/{1.73_m2} Normal >=60 [facility] Comment on above: Result Comment: Repo rted eGFR is based on the CKD-EPI 2020 equation using creatinine, age, and sex. Performed By: #### I PB, CA, MGO, CHM7 #### [facility] (DEFAULT) [address] [place] [address]254 Glucose [Mass/Vol] 115 mg/dL High 70-99 [facility] Comment on above: Performed By: #### I PB, CA, MGO, CHM7 #### [facility] (DEFAULT) [address] [place] [address] 25070 Osmolality [Osmolality] 291 mosm/kg Normal 278-305 [facility] Comment on above: Performed By: #### I PB, CA, MGO, CHM7 #### [facility] (DEFAULT) [address] [place] [address] 33733 Potassium [Moles/Vol] 4.2 mmol/L Normal 3.5-5.0 [facility] Comment on above: Performed By: #### I PB, CA, MGO, CHM7 #### [facility] (DEFAULT) [address] [place] [address] 94370 Sodium [Moles/Vol] 137 mmol/L Normal 135-145 [facility] Comment on above: Performed By: #### I PB, CA, MGO, CHM7 #### [facility] (DEFAULT) [address] [place] [address] 77845 Urea nitrogen [Mass/Vol] 19 mg/dL Normal 7-25 [facility] Comment on above: Performed By: #### I PB, CA, MGO, CHM7 #### [facility] (DEFAULT) [address] [place] [address] Urea nitrogen/Creatinine [Mass ratio] 18 mg/mg Normal [facility] Comment on above: Performed By: #### I PB, CA, MGO, CHM7 #### [facility] (DEFAULT) [address] [place] [address] Anion gap [Moles/Vol] 10 mmol/L 7 - 17 mmol/L [facility] Chloride [Moles/Vol] 103 mmol/L 98 - 10 8 mmol/L [facility] CO2 [Moles/Vol] 28 mmol/L 21 - 31 mmol/L [facility] Creatinine [Mass/Vol] 1.04 mg/dL 0.70 - 1.30 mg/dL [facility] eGFR, CKD-EPI, Male 84 - PINF [facility] Comment on above: Reported eGFR is bas ed on the CKD-EPI 2020 equation using creatinine, age, and sex. Glucose [Mass/Vol] 115 mg/dL High 70 - 99 mg/dL [facility] Interpretation and review of laboratory results Abnormal [facility] Osmolality Calc [Osmolality] 291 [facility] Potassium [Moles/Vol] 4.2 mmol/L 3.5 - 5.0 mmol/L [facility] Sodium [Moles/Vol] 137 mmol/L 135 - 145 mmol/L [facility] Urea nitrogen [Mass/Vol] 19 mg/dL 7 - 25 mg/dL [facility] Urea nitrogen/Creatinine [Mass ratio] 18 mg/mg [facility] CONTINUOUS CARDIAC MONITORIN G STRIPon 09-28-2023 [facility] GLUCOSE POCon 09-28-2023 Glucose [Mass/Vol] 107 mg/dL High 70 - 99 mg/dL [facility] Interpretation and review of laboratory results Abnormal [facility] POC Sample Type CAPBL [facility] Test performed at ad dress of the patient encounter. [facility] MAGNESIUMon 09-28-2023 Magnesium [Mass/Vol] 1.8 mg/dL Normal 1.6-2.6 [facility] Comment on above: Performed By: #### I PB, CA, MGO, CHM7 #### [facility] (DEFAULT) [address] [place] [address] 24077 Magnesium [Mass/Vol] 1.8 mg/dL 1.6 - 2 .6 mg/dL [facility] No Panel Informationon 09-27 Interpretation and review of laboratory results Normal [facility] PHOSPHATE, INORGANICon 09-27 Phosphorous 3.7 mg/dL Normal 2.2-4.6 [facility] Comment on above: Performed By: #### A 1CB, [id number] #### [facility] (DEFAULT) [address] [place] [address] 38240 Phosphate [Mass/Vol] 3.7 mg/dL 2.2 - 4 .6 mg/dL [facility] PT,INR,PTTon 09-28-2023 aPTT Coag (Bld) [Time] 30.5 s Normal 24.0-34.3 [facility] Comment on above: Performed By: #### A 1CB, [id number] #### [facility] (DEFAULT) [address] [place] [address] 51274 INR Coag (PPP) [Relative time] 1.0 {INR} Normal 0.9-1.1 [facility] Comment on above: Performed By: #### A 1CB, [id number] #### [facility] (DEFAULT) [address] [place] [address] 72191 PT Coag (PPP) [Time] 13.0 s Normal 11.9-14.2 [facility] Comment on above: Performed By: #### A 1CB, [id number] #### [facility] (DEFAULT) [address] [place] [address] 51063 aPTT Coag (PPP) [Time] 30.[address] [facility] INR Coag (Bld) [Relative time] 1.0 {INR} 0.9 - 1.1 [facility] Interpretation and review of laboratory results Normal [facility] PT Coag (PPP) [Time] 13.0 s [facility] URINE CULTUREOrdered By: Eric Paul on 09-28-2023 Bacteria identified Cx Nom (Unsp spec) Growth [facility] Bacteria identified Cx Nom (Unsp spec) 10,000-50,000 CFU/mL Mixed skin angela [facility] Comment on above: Multiple bacterial m orphotypes present. Suggest appropriate recollection if clinically indicated. [facility] ABORH TYPE RECONFIRMATIONon 09-27-2023 ABO/RH(D) TYPE Positive Normal [facility] Comment on above: Performed By: #### T YPEC #### [facility] (DEFAULT) [address] [address] ABO/RH(D) TYPE Positive [facility] CALCIUMon 09-27-2023 Calcium [Mass/Vol] 9.8 mg/dL Normal 8.6-10.5 [facility] Comment on above: Performed By: #### A 1CB, [id number] #### [facility] (DEFAULT) [address] [address] Calcium [Mass/Vol] 9.8 mg/dL 8.6 - 10. 5 mg/dL [facility] Calcium [Mass/Vol] 9.5 mg/dL Normal 8.6-10.5 [facility] Comment on above: Performed By: #### A 1CB, [id number] #### [facility] (DEFAULT) [address] [place] [address] 47007 CBC AND ELECTRONIC DIFFon Basophils (Bld) [#/Vol] 0.04 10*3/uL Normal 0.00-0.09 [facility] Comment on above: Performed By: #### L [id number] #### [facility] (DEFAULT) [address] [address] Basophils/100 WBC (Bld) 0.3 % Normal [facility] Comment on above: Performed By: #### L AB980 #### [facility] (DEFAULT) [address] [address] DIFF STATUS Electronic Differential Normal [facility] Comment on above: Performed By: #### L AB980 #### [facility] (DEFAULT) [address] [address] Eosinophils (Bld) [#/Vol] 0.24 10*3/uL Normal 0.00-0.48 [facility] Comment on above: Performed By: #### L AB980 #### [facility] (DEFAULT) [address] [address] Eosinophils/100 WBC (Bld) 2.1 % Normal [facility] Comment on above: Performed By: #### L [id number] #### [facility] (DEFAULT) [address] [address] Hematocrit (Bld) [Volume fraction] 46.5 % Normal 39.6-48.8 [facility] Comment on above: Performed By: #### L AB980 #### [facility] (DEFAULT) [address] [address] Hemoglobin (Bld) [Mass/Vol] 15.3 g/dL Normal 13.4-16.8 [facility] Comment on above: Performed By: #### L AB980 #### [facility] (DEFAULT) [address] [address] Immature Grans % 0.9 % Normal [facility] Comment on above: Performed By: #### L AB980 #### [facility] (DEFAULT) [address] [address] Immature Grans Absolute 0.10 K/uL High <=0.07 [facility] Comment on above: Performed By: #### L [id number] #### [facility] (DEFAULT) [address] [place] [address] 19652 Lymphocytes (Bld) [#/Vol] 2.60 10*3/uL Normal 0.83-3.57 [facility] Comment on above: Performed By: #### L AB980 #### [facility] (DEFAULT) [address] [place] [address] 30819 Lymphocytes/100 WBC (Bld) 22.3 % Normal [facility] Comment on above: Performed By: #### L AB980 #### [facility] (DEFAULT) [address] [place] [address] 50813 MCV (RBC) [Entitic vol] 91.7 fL Normal 79.0-94.5 [facility] Comment on above: Performed By: #### L AB980 #### [facility] (DEFAULT) [address] [address] Mean Cell Hgb 30.2 pg Normal 26.1-33.3 [facility] Comment on above: Performed By: #### L AB980 #### [facility] (DEFAULT) [address] [address] Mean Cell Hgb Conc 32.9 g/dL Normal 31.9-36.5 [facility] Comment on above: Performed By: #### L AB980 #### [facility] (DEFAULT) [address] [address] Monocytes (Bld) [#/Vol] 1.04 10*3/uL High 0.24-0.93 [facility] Comment on above: Performed By: #### L AB980 #### [facility] (DEFAULT) [address] [address] Monocytes/100 WBC (Bld) 8.9 % Normal [facility] Comment on above: Performed By: #### L AB980 #### [facility] (DEFAULT) [address] [place] [address] 82035 Nucleated RBC 0.0 /100 WBC Normal <=0.2 [facility] Comment on above: Performed By: #### L AB980 #### [facility] (DEFAULT) [address] [place] [address] 23681 Platelet mean volume (Bld) [Entitic vol] 11.5 fL Normal 8.7-12.3 [facility] Comment on above: Performed By: #### L AB980 #### [facility] (DEFAULT) [address] [place] [address] 54539 Platelets (Bld) [#/Vol] 254 10*3/uL Normal 146-337 [facility] Comment on above: Performed By: #### L AB980 #### [facility] (DEFAULT) [address] [address] RBC (Bld) [#/Vol] 5.07 10*6/uL Normal 4.38-5.83 [facility] Comment on above: Performed By: #### L AB980 #### [facility] (DEFAULT) [address] [place] [address] 07311 RBC Distribution 13.2 % Normal 10.9-14.3 [facility] Comment on above: Performed By: #### L AB980 #### [facility] (DEFAULT) [address] [place] [address] 98895 Segs + Bands Auto 65.5 % Normal [facility] Comment on above: Performed By: #### L AB980 #### [facility] (DEFAULT) [address] [address] Segs + Bands,Absolute Auto 7.62 K/uL High 1.57-6.19 [facility] Comment on above: Performed By: #### L AB980 #### [facility] (DEFAULT) [address] [address] WBC (Bld) [#/Vol] 11.64 10*3/uL High 3.73-10.10 [facility] Comment on above: Performed By: #### L AB980 #### [facility] (DEFAULT) [address] [place] [address] Basophils (Bld) [#/Vol] 0.04 10*3/uL 0.00 - 0.09 K/uL [facility] Basophils/100 WBC (Bld) 0.3 % [facility] Differential cell count method Nom (Bld) Electronic Differential [facility] Eosinophils (Bld) [#/Vol] 0.24 10*3/uL 0.00 - 0.48 K/uL [facility] Eosinophils/100 WBC (Bld) 2.1 % [facility] Erythrocyte distribution width (RBC) [Ratio] 13.2 % 10.9 - 14.3 % [facility] Hematocrit (Bld) [Volume fraction] 46.5 % 39.6 - 48.8 % [facility] Hemoglobin (Bld) [Mass/Vol] 15.3 g/dL 13.4 - 16.8 g/dL [facility] Immature granulocytes (Bld) [#/Vol] 0.10 10*3/uL High NINF - 0.07 K/uL [facility] Immature granulocytes/100 WBC (Bld) 0.9 % [facility] Interpretation and review of laboratory results Abnormal [facility] Lymphocytes (Bld) [#/Vol] 2.60 10*3/uL 0.83 - 3.57 K/uL [facility] Lymphocytes/100 WBC (Bld) 22.3 % [facility] MCH (RBC) [Entitic mass] 30.2 pg 26.1 - 33.3 pg [facility] MCHC (RBC) [Mass/Vol] 32.9 g/dL 31.9 - 36.5 g/dL [facility] MCV (RBC) [Entitic vol] 91.7 fL 79.0 - 94.5 fL [facility] Monocytes (Bld) [#/Vol] 1.04 10*3/uL High 0.24 - 0.93 K/uL [facility] Monocytes/100 WBC (Bld) 8.9 % [facility] Neutrophils (Bld) [#/Vol] 7.62 10*3/uL High 1.57 - 6.19 K/uL [facility] Nucleated RBC/100 WBC (Bld) [Ratio] 0.0 % NINF [facility] Platelet mean volume (Bld) [Entitic vol] 11.5 fL 8.7 - 12.3 fL [facility] Platelets (Bld) [#/Vol] 254 10*3/uL 146 - 337 K/uL [facility] RBC (Bld) [#/Vol] 5.07 10*6/uL [facility] Segmented neutrophils/100 WBC (Bld) 65.5 % [facility] WBC (Bld) [#/Vol] 11.64 10*3/uL High 3.73 - 10.10 K/uL [facility] Basophils (Bld) [#/Vol] 0.04 10*3/uL Normal 0.00-0.09 [facility] Comment on above: Performed By: #### Jonel 1CB, [id number] #### [facility] (DEFAULT) [address] [address] Basophils/100 WBC (Bld) 0.4 % Normal [facility] Comment on above: Performed By: #### Jonel 1CB, [id number] #### [facility] (DEFAULT) [address] [address] DIFF STATUS Electronic Differential Normal [facility] Comment on above: Performed By: #### Jonel 1CB, [id number] #### [facility] (DEFAULT) [address] [address] Eosinophils (Bld) [#/Vol] 0.25 10*3/uL Normal 0.00-0.48 [facility] Comment on above: Performed By: #### Jonel 1CB, [id number] #### [facility] (DEFAULT) [address] [address] Eosinophils/100 WBC (Bld) 2.4 % Normal [facility] Comment on above: Performed By: #### Jonel DEVINE, [id number] #### [facility] (DEFAULT) [address] [place] [address] Hematocrit (Bld) [Volume fraction] 43.8 % Normal 39.6-48.8 [facility] Comment on above: Performed By: #### Jonel DEVINE, [id number] #### [facility] (DEFAULT) [address] [place] [address] Hemoglobin (Bld) [Mass/Vol] 14.5 g/dL Normal 13.4-16.8 [facility] Comment on above: Performed By: #### Jonel DEVINE, [id number] #### [facility] (DEFAULT) [address] [place] [address] 61360 Immature Grans % 0.7 % Normal [facility] Comment on above: Performed By: #### Jonle DEVINE, [id number] #### [facility] (DEFAULT) [address] [place] [address] 53074 Immature Grans Absolute 0.07 K/uL Normal <=0.07 [facility] Comment on above: Performed By: #### Jonel DEVINE, [id number] #### [facility] (DEFAULT) [address] [place] [address] 67326 Lymphocytes (Bld) [#/Vol] 2.49 10*3/uL Normal 0.83-3.57 [facility] Comment on above: Performed By: #### Jonel DEVINE, [id number] #### [facility] (DEFAULT) [address] [place] [address] 11776 Lymphocytes/100 WBC (Bld) 24.1 % Normal [facility] Comment on above: Performed By: #### Jonel DEVINE, [id number] #### [facility] (DEFAULT) [address] [place] [address]999 MCV (RBC) [Entitic vol] 92.6 fL Normal 79.0-94.5 [facility] Comment on above: Performed By: #### Jonel DEVINE, [id number] #### [facility] (DEFAULT) [address] [address] Mean Cell Hgb 30.7 pg Normal 26.1-33.3 [facility] Comment on above: Performed By: #### A 1CB, [id number] #### [facility] (DEFAULT) [address] [address] Mean Cell Hgb Conc 33.1 g/dL Normal 31.9-36.5 [facility] Comment on above: Performed By: #### A 1CB, [id number] #### [facility] (DEFAULT) [address] [place] [address] Monocytes (Bld) [#/Vol] 0.83 10*3/uL Normal 0.24-0.93 [facility] Comment on above: Performed By: #### A 1CB, [id number] #### [facility] (DEFAULT) [address] [address] Monocytes/100 WBC (Bld) 8.0 % Normal [facility] Comment on above: Performed By: #### A 1CB, [id number] #### [facility] (DEFAULT) [address] [address] Nucleated RBC 0.0 /100 WBC Normal <=0.2 [facility] Comment on above: Performed By: #### A 1CB, [id number] #### [facility] (DEFAULT) [address] [place] [address] Platelet mean volume (Bld) [Entitic vol] 11.5 fL Normal 8.7-12.3 [facility] Comment on above: Performed By: #### A 1CB, [id number] #### [facility] (DEFAULT) [address] [address] Platelets (Bld) [#/Vol] 252 10*3/uL Normal 146-337 [facility] Comment on above: Performed By: #### A 1CB, [id number] #### [facility] (DEFAULT) [address] [address] RBC (Bld) [#/Vol] 4.73 10*6/uL Normal 4.38-5.83 [facility] Comment on above: Performed By: #### Jonel DEVINE, [id number] #### [facility] (DEFAULT) [address] [place] [address] 7[address]39 RBC Distribution 13.0 % Normal 10.9-14.3 [facility] Comment on above: Performed By: #### Jonel DEVINE, [id number] #### [facility] (DEFAULT) [address] [place] [address] Segs + Bands Auto 64.4 % Normal [facility] Comment on above: Performed By: #### Jonel DEVINE, [id number] #### [facility] (DEFAULT) [address] [place] [address] Segs + Bands,Absolute Auto 6.65 K/uL High 1.57-6.19 [facility] Comment on above: Performed By: #### Jonel DEVINE, [id number] #### [facility] (DEFAULT) [address] [place] [address]29 WBC (Bld) [#/Vol] 10.33 10*3/uL High 3.73-10.10 [facility] Comment on above: Performed By: #### Jonel DEVINE, [id number] #### [facility] (DEFAULT) [address] [place] [address] 60554 CHEM 7 (LYTES,BUN,CREA,GLUC) on 09-27-2023 Anion gap [Moles/Vol] 15 mmol/L Normal 7-17 [facility] Comment on above: Performed By: #### Jonel DEVINE, [id number] #### [facility] (DEFAULT) [address] [place] [address] 11171 Chloride [Moles/Vol] 102 mmol/L Normal 98-108 [facility] Comment on above: Performed By: #### Jonel DEVINE, [id number] #### [facility] (DEFAULT) [address] [place] [address] 16264 CO2 [Moles/Vol] 26 mmol/L Normal 21-31 [facility] Comment on above: Performed By: #### A 1CB, [id number] #### [facility] (DEFAULT) [address] [place] [address]67 Creatinine [Mass/Vol] 0.93 mg/dL Normal 0.70-1.30 [facility] Comment on above: Performed By: #### A 1CB, [id number] #### [facility] (DEFAULT) [address] [place] [address]65 eGFR, CKD-EPI, Male > Normal >=60 [facility] Comment on above: Result Comment: Repo rted eGFR is based on the CKD-EPI 2020 equation using creatinine, age, and sex. Performed By: #### A 1CB, [id number] #### [facility] (DEFAULT) [address] [place] [address]80 Glucose [Mass/Vol] 96 mg/dL Normal 70-99 [facility] Comment on above: Performed By: #### A 1CB, [id number] #### [facility] (DEFAULT) [address] [place] [address]85 Osmolality [Osmolality] 292 mosm/kg Normal 278-305 [facility] Comment on above: Performed By: #### Jonel 1CB, [id number] #### [facility] (DEFAULT) [address] [place] [address]10 Potassium [Moles/Vol] 4.5 mmol/L Normal 3.5-5.0 [facility] Comment on above: Performed By: #### A 1CB, [id number] #### [facility] (DEFAULT) [address] [place] [address] Sodium [Moles/Vol] 138 mmol/L Normal 135-145 [facility] Comment on above: Performed By: #### A 1CB, [id number] #### [facility] (DEFAULT) [address] [place] [address] 9[address]33 Urea nitrogen [Mass/Vol] 18 mg/dL Normal 7-25 [facility] Comment on above: Performed By: #### A 1CB, [id number] #### [facility] (DEFAULT) [address] [place] [address] Urea nitrogen/Creatinine [Mass ratio] 19 mg/mg Normal [facility] Comment on above: Performed By: #### A 1CB, [id number] #### [facility] (DEFAULT) [address] [place] [address] Anion gap [Moles/Vol] 15 mmol/L 7 - 17 mmol/L [facility] Chloride [Moles/Vol] 102 mmol/L 98 - 10 8 mmol/L [facility] CO2 [Moles/Vol] 26 mmol/L 21 - 31 mmol/L [facility] Creatinine [Mass/Vol] 0.93 mg/dL 0.70 - 1.30 mg/dL [facility] eGFR, CKD-EPI, Male - PINF [facility] Comment on above: Reported eGFR is bas ed on the CKD-EPI 2020 equation using creatinine, age, and sex. Glucose [Mass/Vol] 96 mg/dL 70 - 99 mg/dL [facility] Osmolality Calc [Osmolality] 292 [facility] Potassium [Moles/Vol] 4.5 mmol/L 3.5 - 5.0 mmol/L [facility] Sodium [Moles/Vol] 138 mmol/L 135 - 145 mmol/L [facility] Urea nitrogen [Mass/Vol] 18 mg/dL 7 - 25 mg/dL [facility] Urea nitrogen/Creatinine [Mass ratio] 19 mg/mg [facility] CHM 7 - EDon 09-27-2023 Anion gap [Moles/Vol] 12 mmol/L Normal 7-17 [facility] Comment on above: Performed By: #### A 1CB, [id number] #### [facility] (DEFAULT) [address] [place] [address] Chloride [Moles/Vol] 103 mmol/L Normal 98-108 [facility] Comment on above: Performed By: #### Jonel 1CB, [id number] #### [facility] (DEFAULT) [address] [place] [address] CO2 [Moles/Vol] 24 mmol/L Normal 21-31 [facility] Comment on above: Performed By: #### Jonel 1CB, [id number] #### [facility] (DEFAULT) [address] [place] [address] Creatinine [Mass/Vol] 0.88 mg/dL Normal 0.70-1.30 [facility] Comment on above: Performed By: #### Jonel 1CB, [id number] #### [facility] (DEFAULT) [address] [place] [address] 17966 eGFR, CKD-EPI, Male > Normal >=60 [facility] Comment on above: Result Comment: Repo rted eGFR is based on the CKD-EPI 2020 equation using creatinine, age, and sex. Performed By: #### Jonel 1CB, [id number] #### [facility] (DEFAULT) [address] [place] [address]247 Glucose [Mass/Vol] 97 mg/dL Normal 70-99 [facility] Comment on above: Performed By: #### Jonel 1CB, [id number] #### [facility] (DEFAULT) [address] [place] [address]184 Osmolality [Osmolality] 285 mosm/kg Normal 278-305 [facility] Comment on above: Performed By: #### Jonel 1CB, [id number] #### [facility] (DEFAULT) [address] [place] [address]40 Potassium [Moles/Vol] 4.1 mmol/L Normal 3.5-5.0 [facility] Comment on above: Performed By: #### Jonel 1CB, [id number] #### [facility] (DEFAULT) [address] [place] [address] 11754 Sodium [Moles/Vol] 135 mmol/L Normal 135-145 [facility] Comment on above: Performed By: #### A 1CB, [id number] #### [facility] (DEFAULT) [address] [place] [address] Urea nitrogen [Mass/Vol] 18 mg/dL Normal 7-25 [facility] Comment on above: Performed By: #### A 1CB, [id number] #### [facility] (DEFAULT) [address] [place] [address] Urea nitrogen/Creatinine [Mass ratio] 20 mg/mg Normal [facility] Comment on above: Performed By: #### A 1CB, [id number] #### [facility] (DEFAULT) [address] [place] [address] CONTINUOUS CARDIAC MONITORIN G STRIPOrdered By: Unassigned Pacs on 09-27-2023 [facility] Work Phone: CT HEAD WITHOUT CONTRASTon 0 [...] paramedian aspect of the cerebellar vermis. Normal [facility] CT Head WO contraston 2023 IMPRESSION: Stable [...] right paramedian aspect of the cerebellar vermis. [facility] Radiology Study observation (narrative) [facility] CT Head WO contrastOrdered B y: Raphael Quan on 09-27-2023 [facility] Work Phone: CT STROKE HEAD-STROKE ALERT ONLYon [...] have reviewed and approved this report. Normal [facility] EXTRA MICROon 09-27-2023 [facility] HEMOGLOBIN A1Con 09-27-2023 Average glucose Estimated from glycated hemoglobin (Bld) [Mass/Vol] 111 mg/dL [facility] HbA1c (Bld) [Mass fraction] 5.5 % 4.7 - 5.6 % [facility] Glucose [Mass/Vol] 111 mg/dL Normal [facility] Comment on above: Performed By: #### Jonel 1CB, [id number] #### [facility] (DEFAULT) [address] [address] Hemoglobin A1C HPLC 5.5 % Normal 4.7-5.6 [facility] Comment on above: Performed By: #### Jonel 1CB, [id number] #### [facility] (DEFAULT) [address] [address] HEPATIC FUNCTION PANELon Albumin [Mass/Vol] 4.4 g/dL Normal 3.5-5.0 [facility] Comment on above: Performed By: #### Jonel 1CB, [id number] #### [facility] (DEFAULT) [address] [address] ALP [Catalytic activity/Vol] 77 U/L Normal 32-126 [facility] Comment on above: Performed By: #### A 1CB, [id number] #### [facility] (DEFAULT) [address] [address] ALT [Catalytic activity/Vol] 30 U/L Normal 10-52 [facility] Comment on above: Performed By: #### A 1CB, [id number] #### [facility] (DEFAULT) [address] [place] [address] 28938 AST [Catalytic activity/Vol] 24 U/L Normal 10-39 [facility] Comment on above: Performed By: #### Jonel DEVINE, [id number] #### [facility] (DEFAULT) [address] [place] [address] Bilirubin [Mass/Vol] 0.6 mg/dL Normal <1.5 [facility] Comment on above: Performed By: #### Jonel DEVINE, [id number] #### [facility] (DEFAULT) [address] [place] [address] Bilirubin.indirect [Mass/Vol] 0.1 mg/dL Normal <0.3 [facility] Comment on above: Performed By: #### Jonel DEVINE, [id number] #### [facility] (DEFAULT) [address] [place] [address] Protein [Mass/Vol] 7.5 g/dL Normal 6.4-8.3 [facility] Comment on above: Performed By: #### Jonel DEVINE, [id number] #### [facility] (DEFAULT) [address] [place] [address] HIGH SENSITIVITY TROPONIN I - SINGLE ORDERon 09-27-2023 hs-Troponin I 3 ng/L Normal <53 [facility] Comment on above: Order Comment: Acute Coronary Syndrome (ACS): Initial Evaluation and Management:[email or web address] Performed By: #### Jonel DEVINE, [id number] #### [facility] (DEFAULT) [address] [place] [address] LIPID PANEL WITH REFLEX TO M EASURED LDLon 09-27-2023 Cholesterol [Mass/Vol] 195 mg/dL NINF - 200 mg/dL [facility] Comment on above: [<200 mg/dL: Desirab le] [200-239 mg/dL: Borderline High] [>239 mg/dL: High] Cholesterol in HDL [Mass/Vol] 41 mg/dL 40 - PINF mg/dL [facility] Comment on above: [<40 mg/dL: Low (Hig h Risk)] [>59 mg/dL: High (Low Risk)] Cholesterol in LDL [Mass/Vol] 129 mg/dL High 0 - 99 mg/dL [facility] Comment on above: [<100 mg/dL: Optimal ] [100-129 mg/dL: Near Optimal] [130-159 mg/dL: Borderline High] [160-189 mg/dL: High] [>189 mg/dL: Very High] Cholesterol non HDL [Mass/Vol] 154 mg/dL High NINF - 130 mg/dL [facility] Cholesterol.total/Chol esterol in HDL [Mass ratio] 4.8 {ratio} High NINF - 4.5 [facility] Interpretation and review of laboratory results Abnormal [facility] Triglyceride [Mass/Vol] 124 mg/dL NINF - 150 mg/dL [facility] Comment on above: [<150 mg/dL: Desirab le] [150-199 mg/dL: Borderline] [200-499 mg/dL: High] [>500 mg/dL: Very High] [facility] Calculated LDL Cholesterol 129 mg/dL High 0-99 [facility] Comment on above: Result Comment: [<10 0 mg/dL: Optimal] [100-129 mg/dL: Near Optimal] [130-159 mg/dL: Borderline High] [160-189 mg/dL: High] [>189 mg/dL: Very High] Performed By: #### A 1CB, [id number] #### [facility] (DEFAULT) [address] [place] [address] Cholesterol [Mass/Vol] 195 mg/dL Normal <200 [facility] Comment on above: Result Comment: [<20 0 mg/dL: Desirable] [200-239 mg/dL: Borderline High] [>239 mg/dL: High] Performed By: #### A 1CB, [id number] #### [facility] (DEFAULT) [address] [place] [address] Cholesterol in HDL [Mass/Vol] 41 mg/dL Normal >=40 [facility] Comment on above: Result Comment: [<40 mg/dL: Low (High Risk)] [>59 mg/dL: High (Low Risk)] Performed By: #### A 1CB, [id number] #### [facility] (DEFAULT) [address] [place] [address] Non HDL Cholesterol 154 mg/dL High <130 [facility] Comment on above: Performed By: #### A 1CB, [id number] #### [facility] (DEFAULT) [address] [place] [address]233 Total Cholesterol/HDL Ratio 4.8 High <4.5 [facility] Comment on above: Performed By: #### Jonel 1CB, [id number] #### [facility] (DEFAULT) [address] [place] [address] Triglyceride [Mass/Vol] 124 mg/dL Normal <150 [facility] Comment on above: Result Comment: [<15 0 mg/dL: Desirable] [150-199 mg/dL: Borderline] [200-499 mg/dL: High] [>500 mg/dL: Very High] Performed By: #### A 1CB, [id number] #### [facility] (DEFAULT) [address] [place] [address] MAGNESIUMon 09-27-2023 Magnesium [Mass/Vol] 1.9 mg/dL Normal 1.6-2.6 [facility] Comment on above: Performed By: #### A 1CB, [id number] #### [facility] (DEFAULT) [address] [place] [address] Magnesium [Mass/Vol] 1.9 mg/dL 1.6 - 2 .6 mg/dL [facility] Magnesium [Mass/Vol] 1.9 mg/dL Normal 1.6-2.6 [facility] Comment on above: Performed By: #### Jonel 1CB, [id number] #### [facility] (DEFAULT) [address] [place] [address] MR Brain WO and W contrast I Von 09-27-2023 Addendum by Fab Wilks MD on 09/27/2023 3:18 PM EST ADDENDUM #1 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 [facility] Revised impression: 1. Developmental venous anomaly of [...] No evidence of mass, hydrocephalus, or infarct. [facility] Radiology Study observation (narrative) [facility] MR Brain WO and W contrast I VOrdered By: Fab Wilks on 09-27-2023 [facility] MRI BRAIN WITH AND WITHOUT C ONTRASTon [...] evidence of mass, hydrocephalus, or infarct. Normal [facility] No Panel Informationon 09-26 Interpretation and review of laboratory results Normal [facility] PHOSPHATE, INORGANICon 09-26 Phosphorous 3.2 mg/dL Normal 2.2-4.6 [facility] Comment on above: Performed By: #### Jonel DEVINE, [id number] #### [facility] (DEFAULT) [address] [place] [address] Phosphate [Mass/Vol] 3.2 mg/dL 2.2 - 4 .6 mg/dL [facility] Phosphorous 3.4 mg/dL Normal 2.2-4.6 [facility] Comment on above: Performed By: #### Jonel DEVINE, [id number] #### [facility] (DEFAULT) [address] [place] [address] PT,INR,PTTon 09-27-2023 aPTT Coag (Bld) [Time] 31.4 s Normal 24.0-34.3 [facility] Comment on above: Performed By: #### Jonel DEVINE, [id number] #### [facility] (DEFAULT) [address] [place] [address] 36471 INR Coag (PPP) [Relative time] 1.0 {INR} Normal 0.9-1.1 [facility] Comment on above: Performed By: #### Jonel ManeB, [id number] #### [facility] (DEFAULT) [address] [place] [address] PT Coag (PPP) [Time] 12.6 s Normal 11.9-14.2 [facility] Comment on above: Performed By: #### Jonel DEVINE, [id number] #### [facility] (DEFAULT) [address] [place] [address] aPTT Coag (PPP) [Time] 31.[address] [facility] INR Coag (Bld) [Relative time] 1.0 {INR} 0.9 - 1.1 [facility] Interpretation and review of laboratory results Normal [facility] PT Coag (PPP) [Time] 12.6 s [facility] PTINR-STROKEon 09-27-2023 INR Coag (PPP) [Relative time] 1.0 {INR} Normal 0.9-1.1 [facility] Comment on above: Performed By: #### A 1CB, [id number] #### [facility] (DEFAULT) [address] [place] [address] PT Coag (PPP) [Time] 12.7 s Normal 11.9-14.2 [facility] Comment on above: Performed By: #### A 1CB, [id number] #### [facility] (DEFAULT) [address] [place] [address] PTTon 09-27-2023 aPTT Coag (Bld) [Time] 31.2 s Normal 24.0-34.3 [facility] Comment on above: Performed By: #### A 1CB, [id number] #### [facility] (DEFAULT) [address] [place] [address] TYPE AND SCREENon 09-27-2023 ABO/RH(D) TYPE Positive Normal [facility] Comment on above: Performed By: #### A 1CB, [id number] #### [facility] (DEFAULT) [address] [place] [address] ABO/RH(D) TYPE Positive [facility] URINALYSIS REFLEX TO CULTURE PERFORMABLEon 09-27-2023 Appearance (U) Clear Normal Clear [facility] Comment on above: Order Comment: For i ndwelling catheters, specimen collection is acceptable on catheter day 1 and 2 only. ? Performed By: #### U [id number] #### [facility] (DEFAULT) [address] [place] [address] Bacteria ABSENT Normal ABSENT [facility] Comment on above: Order Comment: For i ndwelling catheters, specimen collection is acceptable on catheter day 1 and 2 only. ? Performed By: #### U [id number] #### [facility] (DEFAULT) [address] [place] [address] Blood Urine Negative Normal Negative [facility] Comment on above: Order Comment: For i ndwelling catheters, specimen collection is acceptable on catheter day 1 and 2 only. ? Performed By: #### U [id number] #### [facility] (DEFAULT) [address] [place] [address] Color (U) Yellow Normal Yellow [facility] Comment on above: Order Comment: For i ndwelling catheters, specimen collection is acceptable on catheter day 1 and 2 only. ? Performed By: #### U [id number] #### [facility] (DEFAULT) [address] [place] [address] Glucose Ql (U) Negative Normal Negative [facility] Comment on above: Order Comment: For i ndwelling catheters, specimen collection is acceptable on catheter day 1 and 2 only. ? Performed By: #### U [id number] #### [facility] (DEFAULT) [address] [place] [address]2650 Ketones Ql (U) Negative Normal Negative [facility] Comment on above: Order Comment: For i ndwelling catheters, specimen collection is acceptable on catheter day 1 and 2 only. ? Performed By: #### U [id number] #### [facility] (DEFAULT) [address] [place] [address] Leukocyte esterase Test strip Ql (U) Trace Abnormal Negative [facility] Comment on above: Order Comment: For i ndwelling catheters, specimen collection is acceptable on catheter day 1 and 2 only. ? Performed By: #### U [id number] #### [facility] (DEFAULT) [address] [place] [address] 34863 Nitrites Urine Negative Normal Negative [facility] Comment on above: Order Comment: For i ndwelling catheters, specimen collection is acceptable on catheter day 1 and 2 only. ? Performed By: #### U [id number] #### [facility] (DEFAULT) [address] [place] [address] 18616 pH (U) 6.5 [pH] Normal 5.0-7.0 [facility] Comment on above: Order Comment: For i ndwelling catheters, specimen collection is acceptable on catheter day 1 and 2 only. ? Performed By: #### U [id number] #### [facility] (DEFAULT) [address] [address] Protein Urine Trace Abnormal Negative [facility] Comment on above: Order Comment: For i ndwelling catheters, specimen collection is acceptable on catheter day 1 and 2 only. ? Performed By: #### U [id number] #### [facility] (DEFAULT) [address] [place] [address]384 RBC Urine 0-2 Normal 0-2 [facility] Comment on above: Order Comment: For i ndwelling catheters, specimen collection is acceptable on catheter day 1 and 2 only. ? Performed By: #### U [id number] #### [facility] (DEFAULT) [address] [address] Specific Wray Urine > High 1.001-1.035 [facility] Comment on above: Order Comment: For i ndwelling catheters, specimen collection is acceptable on catheter day 1 and 2 only. ? Performed By: #### U [id number] #### [facility] (DEFAULT) [address] [address] Squamous/Epithelial Cells 0-2/hpf Normal 0-2/hpf, 3-5/hpf = 1+ [facility] Comment on above: Order Comment: For i ndwelling catheters, specimen collection is acceptable on catheter day 1 and 2 only. ? Performed By: #### U [id number] #### [facility] (DEFAULT) [address] [address] Urobilinogen Urine 1.0 E.U./dL Normal 0.2 E.U/d L, 1.0 E.U/dL [facility] Comment on above: Order Comment: For i ndwelling catheters, specimen collection is acceptable on catheter day 1 and 2 only. ? Performed By: #### U [id number] #### [facility] (DEFAULT) [address] [place] [address] WBC LM.HPF (Urine sed) [#/Area] /[HPF] Abnormal 0 - 5 [facility] Comment on above: Order Comment: For i ndwelling catheters, specimen collection is acceptable on catheter day 1 and 2 only. ? Performed By: #### U [id number] #### [facility] (DEFAULT) [address] [place] [address] Appearance (U) Clear Clear [facility] Bacteria LM Ql (Urine sed) ABSENT ABSENT [facility] Color (U) Yellow Yellow [facility] Epithelial cells.squamous LM Ql (Urine sed) 0-2/hpf 0-2/hpf, 3-5/hpf = 1+ [facility] Glucose Test strip (U) [Mass/Vol] Negative Negative [facility] Interpretation and review of laboratory results Abnormal [facility] Ketones (U) [Mass/Vol] Negative Negative [facility] Leukocyte esterase Test strip Ql (U) Trace Abnormal Negative [facility] Nitrite Ql (U) Negative Negative [facility] pH (U) 6.5 [pH] 5.0 - 7.0 [facility] Protein (U) [Mass/Vol] Trace Abnormal Negative [facility] RBC (U) [#/Vol] Negative Negative [facility] RBC LM.HPF (Urine sed) [#/Area] 0-2 [facility] Specific gravity (U) [Rel density] High 1.001 - 1.035 [facility] Urobilinogen (U) [Mass/Vol] 1.0 E.U./dL 0.2 E.U/dL, 1.0 E.U/dL [facility] WBC LM.HPF (Urine sed) [#/Area] /[HPF] Abnormal [facility] URINE CULTUREon 09-27-2023 Bacteria identified Cx Nom (U) Normal [facility] Comment on above: Order Comment: For i ndwelling catheters, specimen collection is acceptable on catheter day 1 and 2 only. Gordon top vacutainer. Urine must be to the fill line to process (4mls). If minimum volume, send urine in a yellow top vacutainer tube. For indwelling catheters, specimen collection is acceptable on catheter day 1 and 2 only. ? Result Comment: Grow th [id number] SKIN FLORAMIXED SKIN ANGELA 10,000-50,000 CFU/mL Mixed skin angela Multiple bacterial morphotypes present. Suggest appropriate recollection if clinically indicated. Performed By: #### U R #### [facility] (DEFAULT) [address] [place] [address] CALCIUMon 09-26-2023 Calcium [Mass/Vol] 9.5 mg/dL 8.6 - 10. 5 mg/dL [facility] CBC AND ELECTRONIC DIFFon Basophils (Bld) [#/Vol] 0.04 10*3/uL 0.00 - 0.09 K/uL [facility] Basophils/100 WBC (Bld) 0.4 % [facility] Differential cell count method Nom (Bld) Electronic Differential [facility] Eosinophils (Bld) [#/Vol] 0.25 10*3/uL 0.00 - 0.48 K/uL [facility] Eosinophils/100 WBC (Bld) 2.4 % [facility] Erythrocyte distribution width (RBC) [Ratio] 13.0 % 10.9 - 14.3 % [facility] Hematocrit (Bld) [Volume fraction] 43.8 % 39.6 - 48.8 % [facility] Hemoglobin (Bld) [Mass/Vol] 14.5 g/dL 13.4 - 16.8 g/dL [facility] Immature granulocytes (Bld) [#/Vol] 0.07 10*3/uL NINF - 0.07 K/uL [facility] Immature granulocytes/100 WBC (Bld) 0.7 % [facility] Interpretation and review of laboratory results Abnormal [facility] Lymphocytes (Bld) [#/Vol] 2.49 10*3/uL 0.83 - 3.57 K/uL [facility] Lymphocytes/100 WBC (Bld) 24.1 % [facility] MCH (RBC) [Entitic mass] 30.7 pg 26.1 - 33.3 pg [facility] MCHC (RBC) [Mass/Vol] 33.1 g/dL 31.9 - 36.5 g/dL [facility] MCV (RBC) [Entitic vol] 92.6 fL 79.0 - 94.5 fL [facility] Monocytes (Bld) [#/Vol] 0.83 10*3/uL 0.24 - 0.93 K/uL [facility] Monocytes/100 WBC (Bld) 8.0 % [facility] Neutrophils (Bld) [#/Vol] 6.65 10*3/uL High 1.57 - 6.19 K/uL [facility] Nucleated RBC/100 WBC (Bld) [Ratio] 0.0 % [facility] Platelet mean volume (Bld) [Entitic vol] 11.5 fL 8.7 - 12.3 fL [facility] Platelets (Bld) [#/Vol] 252 10*3/uL 146 - 337 K/uL [facility] RBC (Bld) [#/Vol] 4.73 10*6/uL [facility] Segmented neutrophils/100 WBC (Bld) 64.4 % [facility] WBC (Bld) [#/Vol] 10.33 10*3/uL High 3.73 - 10.10 K/uL [facility] 7 - EDon 09-26-2023 Anion gap [Moles/Vol] 12 mmol/L 7 - 17 mmol/L [facility] Chloride [Moles/Vol] 103 mmol/L 98 - 10 8 mmol/L [facility] CO2 [Moles/Vol] 24 mmol/L 21 - 31 mmol/L [facility] Creatinine [Mass/Vol] 0.88 mg/dL 0.70 - 1.30 mg/dL [facility] eGFR, CKD-EPI, Male - PINF [facility] Comment on above: Reported eGFR is bas ed on the CKD-EPI 2020 equation using creatinine, age, and sex. Glucose [Mass/Vol] 97 mg/dL 70 - 99 mg/dL [facility] Osmolality Calc [Osmolality] 285 [facility] Potassium [Moles/Vol] 4.1 mmol/L 3.5 - 5.0 mmol/L [facility] Sodium [Moles/Vol] 135 mmol/L 135 - 145 mmol/L [facility] Urea nitrogen [Mass/Vol] 18 mg/dL 7 - 25 mg/dL [facility] Urea nitrogen/Creatinine [Mass ratio] 20 mg/mg [facility] CT Head limitedon 09-26-2023 IMPRESSION: 1. [...] I have reviewed and approved this report. [facility] Radiology Study observation (narrative) [facility] CT Head limitedOrdered By: Marilyn Soares on 09-26-2023 [facility] Work Phone: GLUCOSE POCon 09-26-2023 Glucose [Mass/Vol] 87 mg/dL 70 - 99 mg/dL [facility] POC Sample Type CAPBL [facility] Test performed at ad dress of the patient encounter. [facility] HEPATIC FUNCTION PANELon Albumin [Mass/Vol] 4.4 g/dL 3.5 - 5.0 g/dL [facility] ALP [Catalytic activity/Vol] 77 U/L 32 - 126 U/L [facility] ALT [Catalytic activity/Vol] 30 U/L 10 - 52 U/L [facility] AST [Catalytic activity/Vol] 24 U/L 10 - 39 U/L [facility] Bilirubin [Mass/Vol] 0.6 mg/dL NINF - 1.5 mg/dL [facility] Bilirubin.direct [Mass/Vol] 0.1 mg/dL NINF - 0.3 mg/dL [facility] Protein [Mass/Vol] 7.5 g/dL 6.4 - 8.3 g/dL [facility] HIGH SENSITIVITY TROPONIN I - SINGLE ORDERon 09-26-2023 Interpretation and review of laboratory results Normal [facility] Troponin I.cardiac High sensitivity method [Mass/Vol] 3 ng/L NINF - 53 ng/L [facility] MAGNESIUMon 09-26-2023 Magnesium [Mass/Vol] 1.9 mg/dL 1.6 - 2 .6 mg/dL [facility] No Panel Informationon 09-25 Interpretation and review of laboratory results Normal [facility] PHOSPHATE, INORGANICon 09-25 Phosphate [Mass/Vol] 3.4 mg/dL 2.2 - 4 .6 mg/dL [facility] PTINR-STROKEon 09-26-2023 INR Coag (Bld) [Relative time] 1.0 {INR} 0.9 - 1.1 [facility] PT Coag (PPP) [Time] 12.7 s [facility] PTTon 09-26-2023 aPTT Coag (PPP) [Time] 31.[address] [facility] Interpretation and review of laboratory results [facility] CBC W Auto Differential pane l (Bld)on 09-14-2023 Basophils (Bld) [#/Vol] 0.03 10*3/uL <0.11 k/uL [facility] Basophils/100 WBC (Bld) 0.3 % [facility] Differential cell count method Nom (Bld) Auto [facility] Eosinophils (Bld) [#/Vol] 0.18 10*3/uL <0.46 k/uL [facility] Eosinophils/100 WBC (Bld) 1.7 % [facility] Erythrocyte distribution width (RBC) [Ratio] 13.0 % 11.5 - 15.0 % [facility] Hematocrit (Bld) [Volume fraction] 46.0 % 39.0 - 51.0 % [facility] Hemoglobin (Bld) [Mass/Vol] 15.0 g/dL 13.0 - 17.0 g/dL [facility] Immature granulocytes (Bld) [#/Vol] 0.05 10*3/uL <0.10 k/uL [facility] Immature granulocytes/100 WBC (Bld) 0.5 % [facility] Lymphocytes (Bld) [#/Vol] 2.03 10*3/uL 1.00 - 4.00 k/uL [facility] Lymphocytes/100 WBC (Bld) 19.3 % [facility] MCH (RBC) [Entitic mass] 30.1 pg 26.0 - 34.0 pg [facility] MCHC (RBC) [Mass/Vol] 32.6 g/dL 30.5 - 36.0 g/dL [facility] MCV (RBC) [Entitic vol] 92.4 fL 80.0 - 100.0 fL [facility] Monocytes (Bld) [#/Vol] 0.78 10*3/uL <0.87 k/uL [facility] Monocytes/100 WBC (Bld) 7.4 % [facility] Neutrophils (Bld) [#/Vol] 7.45 10*3/uL 1.45 - 7.50 k/uL [facility] Neutrophils/100 WBC (Bld) 70.8 % [facility] Nucleated RBC (Bld) [#/Vol] <0.01 k/uL [facility] Nucleated RBC/100 WBC (Bld) [Ratio] 0.0 /100 WBC [facility] Platelet mean volume (Bld) [Entitic vol] 12.0 fL 9.0 - 12.7 fL [facility] Platelets (Bld) [#/Vol] 262 10*3/uL 150 - 400 k/uL [facility] RBC (Bld) [#/Vol] 4.98 10*6/uL 4.20 - 6.0 0 m/uL [facility] WBC (Bld) [#/Vol] 10.52 10*3/uL 3.70 - 11.00 k/uL [facility] PSA SerPl-ncon 09-12-2023 Prostate specific Ag [Mass/Vol] 2.01 ng/mL Normal <2.60 [facility] Comment on above: Order Comment: Speci men Type: BLOOD SPECIMEN Ordering Facility: [facility] Address: [address] [place] [address] Result Comment: Tota lefty PSA test methodology used is the Electrochemiluminescence Immunoassay by [employer]. Total PSA values by differing methodologies cannot be interchanged. Performed By: #### 2 857-1 #### [facility] CLIA [id number] [address] [place] [address] [place] XR Chest PA and Lateralon IMPRESSION: No acute findings in the chest. [place] Hand: PSCB Transcribe Date/Time: Jul 31 2023 1:42P Dictated by : ADA TAYLOR MD This examination was interpreted and the report reviewed and electronically signed by: ADA TAYLOR MD on Jul 31 2023 1:46PM [facility] DIVISION OF RADIOLOGY * * *Final Report* [...] Lines/tubes/devices: None visualized. DIVISION OF RADIOLOGY Provider, [facility] - 07/31/2023 * * *Final Report* * [...] IMPRESSION: No acute findings in the chest. [place] Hand: MARTIN Transcribe Date/Time: Jul 31 2023 1:42P Dictated by : ADA TAYLOR MD This examination was interpreted and the report reviewed and electronically signed by: ADA TAYLOR MD on Jul 31 2023 1:46PM EST [facility] Radiology Study observation (narrative) [facility] XR Chest PA and LateralOrder ed By: [facility] Provider on 07-31-2023 [facility] UA DIP, URINE (POC)on 2022 BILIRUBIN UA (POCT) Negative Negative [facility] CLARITY UA (POCT) Cloudy [facility] COLOR UA (POCT) Yellow [facility] GLUCOSE UA (POCT) Negative Negative mg/dL [facility] Hemoglobin Ql (U) Small Abnormal Negative [facility] KETONE UA (POCT) Negative Negative mg/dL [facility] LEUKOCYTES UA (POCT) Small Abnormal Negative [facility] NITRITE UA (POCT) Negative Negative [facility] PH UA (POCT) 7.0 4.5 - 8.0 [facility] Protein Ql (U) 30 mg/dL Abnormal Negative mg/dL [facility] SPECIFIC GRAVITY UA (POCT) 1.015 1.005 - 1.030 [facility] UROBILINOGEN UA (POCT) 0.2 E.U./dL Arti l E.U./dL [facility] TSH BLDon 06-08-2022 TSH Qn 0.058 m[IU]/L Low 0.270 - 4.200 mIU/L [facility] VITAMIN D 25 HYDROXYon 06-08 25-hydroxyvitamin D3 [Mass/Vol] 28.5 ng/mL Low 31.0 - 80.0 ng/mL [facility] XR PELVIS 1V APon 01-14-2022 [facility] XR HIP BILAT 5V PEL/AP/LAT E ACH HIPon 03-18-2021 IMPRESSION: No acute osseous findings bilateral hips. Minimal bilateral hip osteoarthritis. [place] Hand: MARTIN Transcribe Date/Time: Mar 18 2021 2:19P Dictated by : ROB OHARA MD This examination was interpreted and the report reviewed and electronically signed by: ROB OHARA MD on Mar 18 2021 2:20PM [facility] DIVISION OF RADIOLOGY * * *Final Report* [...] lower lumbar spine. DIVISION OF RADIOLOGY Provider, [facility] Jermaine Thomas - 03/18/2021 * * *Final Report* * [...] findings bilateral hips. Minimal bilateral hip osteoarthritis. [place] Hand: PSCB Transcribe Date/Time: Mar 18 2021 2:19P Dictated by : ROB OHARA MD This examination was interpreted and the report reviewed and electronically signed by: ROB OHARA MD on Mar 18 2021 2:20PM EST [facility] Radiology Study observation (narrative) [facility] XR HIP BILAT 5V PEL/AP/LAT E ACH HIPOrdered By: [facility] Provider on 03-18-2021 [facility] Basic Panelon 02-11-2019 Creatinine [Mass/Vol] 1.02 mg/dL Normal 0.67-1.17 [facility] Comment on above: Performed By: #### P 8 #### [facility] [address] [place], [place] [address] Anion gap [Moles/Vol] 9 mmol/L Normal 8-16 [facility] Comment on above: Performed By: #### P 8 #### [facility] [address] [place], [place] [address] Calcium [Mass/Vol] 8.6 mg/dL Normal 8.5-10.1 [facility] Comment on above: Performed By: #### P 8 #### [facility] [address] [place], [place] [address] CO2 [Moles/Vol] 29 mmol/L Normal 21-32 [facility] Comment on above: Performed By: #### P 8 #### [facility] [address] [place], [place] [address] Glucose [Mass/Vol] 82 mg/dL Normal 70-99 [facility] Comment on above: Performed By: #### P 8 #### [facility] [address] [place], [place] [address] Urea nitrogen [Mass/Vol] 12 mg/dL Normal 7-18 [facility] Comment on above: Performed By: #### P 8 #### [facility] [address] [place], [place] [address] Chloride [Moles/Vol] 103 mmol/L Normal 98-107 [facility] Comment on above: Performed By: #### P 8 #### [facility] [address] [place], [place] [address] Potassium [Moles/Vol] 4.3 mmol/L Normal 3.5-5.1 [facility] Comment on above: Performed By: #### P 8 #### [facility] [address] [place], [place] [address] Sodium [Moles/Vol] 137 mmol/L Normal 136-145 [facility] Comment on above: Performed By: #### P 8 #### [address] [address] MDRD GFRon 02-11-2019 GFR/1.73 sq M predicted among non-blacks MDRD (S/P/Bld) [Vol rate/Area] mL/min/{1.73_m2} Normal >60mL/min/1 .73m2 [facility] Comment on above: Result Comment: If t he patient is , multiply the result by 1.210. Performed By: #### G FR #### [facility] [address] [place], [place] [address] Hemogramon 02-10-2019 Erythrocyte distribution width (RBC) [Ratio] 14.9 % High 11.6-14.4 [facility] Comment on above: Performed By: #### C BC1 #### [facility] [address] [place], [place] [address] Hematocrit (Bld) [Volume fraction] 44.2 % Normal 40.1-51.0 [facility] Comment on above: Performed By: #### C BC1 #### [address] [address] Hemoglobin (Bld) [Mass/Vol] 14.4 g/dL Normal 13.7-17.5 [facility] Comment on above: Performed By: #### C BC1 #### [facility] [address] [place] [address] MCH (RBC) [Entitic mass] 30.7 pg Normal 25.7-32.2 [facility] Comment on above: Performed By: #### C BC1 #### [facility] [address] [place] [address] MCHC (RBC) [Mass/Vol] 32.6 % Normal 32.3-36.5 [facility] Comment on above: Performed By: #### C BC1 #### [facility] [address] [place] [address] MCV (RBC) [Entitic vol] 94.2 fL Normal 83.2-95.6 [facility] Comment on above: Performed By: #### C BC1 #### [facility] [address] [place] [address] Platelet mean volume (Bld) [Entitic vol] 10.7 fL Normal 8.7-12.0 [facility] Comment on above: Performed By: #### Lou BC1 #### [facility] [address] [place] [address] Platelets (Bld) [#/Vol] 225 thou/cmm Normal 141-365 [facility] Comment on above: Performed By: #### C BC1 #### [facility] [address] [place] [address] RBC (Bld) [#/Vol] 4.69 mil/cmm Normal 4.63-6.08 [facility] Comment on above: Performed By: #### C BC1 #### [facility] [address] [place] [address] RDW SD 51.5 fl High 36.1-45.8 [facility] Comment on above: Performed By: #### C BC1 #### [facility] [address] [place], [place] [address] WBC (Bld) [#/Vol] 10.16 thou/cmm High 4.23-9.07 [facility] Comment on above: Performed By: #### C BC1 #### [facility] [address] [place] [id number] Vital Signs Date Time Vital Sign Value Performing Clinician Facility 04-07-2025 02:15-0400 Body temperature 98 [degF] Dr. Mathew Cobian MD Work Phone: 5(838)[phone] [address] 04-07-2025 02:15-0400 Diastolic blood pressure 91 mm[Hg] Dr. Mathew Cobian MD Work Phone: 0(444)[phone] [place] [address] 04-07-2025 02:15-0400 Heart rate 98 /min Dr. Mathew Cobian MD Work Phone: 2(924)[phone] [place] [address] 04-07-2025 02:15-0400 Respiratory rate 22 /min Dr. Mathew Cobian MD Work Phone: 8(826)[phone] [place] [address] 04-07-2025 02:15-0400 SaO2% (BldA) [Mass fraction] 98 % Dr. Mathew Cobian MD Work Phone: [facility] 04-07-2025 02:15-0400 Systolic blood pressure 153 mm[Hg] Dr. Mathew Cobian MD Work Phone: [facility] 04-06-2025 22:14-0400 Body height 165.[address] Mathew Cobian MD Work Phone: 5(365)[phone] [place] [address] 04-06-2025 22:14-0400 Body mass index (BMI) [Ratio] 36.4 kg/m2 Dr. Mathew Cobian MD Work Phone: [facility] 04-06-2025 22:14-0400 Body weight 99.[address] Mathew Cobian MD Work Phone: [facility] 03-28-2025 10:45-0400 Diastolic blood pressure 69 mm[Hg] Ino Esqueda APRN.[employer] Work Phone: [facility] 03-28-2025 10:45-0400 Heart rate 72 /min Ino Esqueda APRN.[employer]IST Work Phone: [facility] 03-28-2025 10:45-0400 SaO2% (BldA) [Mass fraction] 96 % Ino Esqueda RETAIL SALES SPECIALIST.[employer]IST Work Phone: [facility] 03-28-2025 10:45-0400 Systolic blood pressure 107 mm[Hg] Ino Esqueda RETAIL SALES SPECIALIST.[employer]IST Work Phone: [facility] 03-18-2025 11:47-0400 Body mass index (BMI) [Ratio] 35.22 kg/m2 Ino Esqueda RETAIL SALES SPECIALIST.[employer]IST Work Phone: [facility] 03-18-2025 11:47-0400 Body weight 96 kg Ino Esqueda RETAIL SALES SPECIALIST.[employer]IST Work Phone: [facility] 03-18-2025 11:47-0400 Diastolic blood pressure 66 mm[Hg] Ino Esqueda RETAIL SALES SPECIALIST.[employer]IST Work Phone: [facility] 03-18-2025 11:47-0400 Heart rate 56 /min Ino Esqueda RETAIL SALES SPECIALIST.[employer]IST Work Phone: [facility] 03-18-2025 11:47-0400 Systolic blood pressure 110 mm[Hg] Ino Esqueda RETAIL SALES SPECIALIST.[employer]IST Work Phone: [facility] 01-29-2025 21:00-0400 Body height 165.[address] Mathew Cobian MD Work Phone: [facility] 01-29-2025 21:00-0400 Body mass index (BMI) [Ratio] 35.8 kg/m2 Dr. Mathew Cobian MD Work Phone: [facility] 01-29-2025 21:00-0400 Body temperature 98.4 [degF] Dr. Mathew Cobian MD Work Phone: [facility] 01-29-2025 21:00-0400 Body weight 97.[address] Mathew Cobian MD Work Phone: [facility] 01-29-2025 21:00-0400 Diastolic blood pressure 82 mm[Hg] Dr. Mathew Cobian MD Work Phone: [facility] 01-29-2025 21:00-0400 Heart rate 76 /min Dr. Mathew Cobian MD Work Phone: [facility] 01-29-2025 21:00-0400 Respiratory rate 16 /min Dr. Mathew Cobian MD Work Phone: [facility] 01-29-2025 21:00-0400 SaO2% (BldA) [Mass fraction] 97 % Dr. Mathew Cobian MD Work Phone: [facility] 01-29-2025 21:00-0400 Systolic blood pressure 134 mm[Hg] Dr. Mathew Cobian MD Work Phone: [facility] 01-28-2025 09:37-0400 Body mass index (BMI) [Ratio] 36.32 kg/m2 Ino Esqueda APRN.[employer] Work Phone: [facility] 01-28-2025 09:37-0400 Body weight 99 kg Ino Esqueda RETAIL SALES SPECIALIST.[employer]IST Work Phone: [facility] 01-28-2025 09:37-0400 Diastolic blood pressure 73 mm[Hg] Ino Esqueda APRN.[employer]IST Work Phone: [facility] 01-28-2025 09:37-0400 Heart rate 65 /min Ino Esqueda APRN.[employer]IST Work Phone: [facility] 01-28-2025 09:37-0400 Systolic blood pressure 113 mm[Hg] Ino Esqueda RETAIL SALES SPECIALIST.[employer]IST Work Phone: [facility] 01-27-2025 09:23-0400 Body mass index (BMI) [Ratio] 37.02 kg/m2 Mega Loja PA-C Work Phone: [facility] 01-27-2025 09:23-0400 Body temperature 97.81 [degF] Mega Loja PA-C Work Phone: [facility] 01-27-2025 09:23-0400 Body weight 100.9 kg Mega Purvi PA-C Work Phone: [facility] 01-27-2025 09:23-0400 Diastolic blood pressure 80 mm[Hg] Mega Purvi PA-C Work Phone: [facility] 01-27-2025 09:23-0400 Heart rate 78 /min Mega Purvi PA-C Work Phone: [facility] 01-27-2025 09:23-0400 Respiratory rate 18 /min Mega Purvi PA-C Work Phone: [facility] 01-27-2025 09:23-0400 SaO2% (BldA) [Mass fraction] 94 % Mega Purvi PA-C Work Phone: [facility] 01-27-2025 09:23-0400 Systolic blood pressure 124 mm[Hg] Mega Purvi PA-C Work Phone: [facility] 01-21-2025 02:33-0400 Body temperature 98.1 [degF] Dr. Mathew Cobian MD Work Phone: [facility] 01-21-2025 02:33-0400 Diastolic blood pressure 80 mm[Hg] Dr. Mathew Cobian MD Work Phone: [facility] 01-21-2025 02:33-0400 Heart rate 59 /min Dr. Mathew Cobian MD Work Phone: [facility] 01-21-2025 02:33-0400 Respiratory rate 19 /min Dr. Mathew Cobian MD Work Phone: [facility] 01-21-2025 02:33-0400 SaO2% (BldA) [Mass fraction] 96 % Dr. Mathew Cobian MD Work Phone: [facility] 01-21-2025 02:33-0400 Systolic blood pressure 120 mm[Hg] Dr. Mathew Cobian MD Work Phone: [facility] 01-20-2025 22:57-0400 Body mass index (BMI) [Ratio] 37.5 kg/m2 Dr. Mathew Cobian MD Work Phone: [facility] 01-20-2025 22:57-0400 Body weight 102.[address] Mathew Cobian MD Work Phone: [facility] 01-20-2025 22:56-0400 Body height 165.[address] Mathew Cobian MD Work Phone: [facility] 01-17-2025 10:23-0400 Diastolic blood pressure 66 mm[Hg] Ino Esqueda RETAIL SALES SPECIALIST.[employer]IST Work Phone: [facility] 01-17-2025 10:23-0400 Heart rate 69 /min Ino Esqueda RETAIL SALES SPECIALIST.[employer]IST Work Phone: [facility] 01-17-2025 10:23-0400 Systolic blood pressure 117 mm[Hg] Ino Esqueda RETAIL SALES SPECIALIST.[employer]IST Work Phone: [facility] 01-14-2025 10:26-0400 Body mass index (BMI) [Ratio] 37.05 kg/m2 Ino Esqueda RETAIL SALES SPECIALIST.[employer]IST Work Phone: [facility] 01-14-2025 10:26-0400 Body weight 101 kg Ino Esqueda RETAIL SALES SPECIALIST.[employer]IST Work Phone: [facility] 01-14-2025 10:26-0400 Diastolic blood pressure 71 mm[Hg] Ino Esqueda RETAIL SALES SPECIALIST.[employer]IST Work Phone: [facility] 01-14-2025 10:26-0400 Heart rate 68 /min Ino Esqueda RETAIL SALES SPECIALIST.[employer]IST Work Phone: [facility] 01-14-2025 10:26-0400 Systolic blood pressure 123 mm[Hg] Ino Esqueda RETAIL SALES SPECIALIST.[employer]IST Work Phone: [facility] 12-25-2024 13:27-0400 Body mass index (BMI) [Ratio] 36.5 kg/m2 Greyson Ellsworth RETAIL SALES SPECIALIST.[employer]IST Work Phone: [facility] 12-25-2024 13:27-0400 Body temperature 98.4 [degF] Greyson Swank RETAIL SALES SPECIALIST.[employer]IST Work Phone: [facility] 12-25-2024 13:27-0400 Body weight 99.5 kg Greyson Swank RETAIL SALES SPECIALIST.[employer]IST Work Phone: [facility] 12-25-2024 13:27-0400 Diastolic blood pressure 70 mm[Hg] Greyson Swank RETAIL SALES SPECIALIST.[employer]IST Work Phone: [facility] 12-25-2024 13:27-0400 Heart rate 67 /min Greyson Swank RETAIL SALES SPECIALIST.[employer]IST Work Phone: [facility] 12-25-2024 13:27-0400 Respiratory rate 20 /min Greyson Swank RETAIL SALES SPECIALIST.[employer]IST Work Phone: [facility] 12-25-2024 13:27-0400 SaO2% (BldA) [Mass fraction] 98 % Greyson Swank RETAIL SALES SPECIALIST.[employer]IST Work Phone: [facility] 12-25-2024 13:27-0400 Systolic blood pressure 128 mm[Hg] Greyson Swank RETAIL SALES SPECIALIST.[employer]IST Work Phone: [facility] 11-05-2024 20:19-0400 Body temperature 98 [degF] Dr. Mathew Cobian MD Work Phone: [facility] 11-05-2024 20:19-0400 Diastolic blood pressure 87 mm[Hg] Dr. Mathew Cobian MD Work Phone: [facility] 11-05-2024 20:19-0400 Heart rate 55 /min Dr. Mathew Cobian MD Work Phone: [facility] 11-05-2024 20:19-0400 Respiratory rate 18 /min Dr. Mathew Cobian MD Work Phone: [facility] 11-05-2024 20:19-0400 SaO2% (BldA) [Mass fraction] 97 % Dr. Mathew Cobian MD Work Phone: [facility] 11-05-2024 20:19-0400 Systolic blood pressure 125 mm[Hg] Dr. Mathew Cobian MD Work Phone: 1(955)[phone] [place] [address] 11-05-2024 18:14-0400 Body height 165.[address] Mathew Cobian MD Work Phone: 7(322)[phone] [place] [address] 11-05-2024 18:14-0400 Body mass index (BMI) [Ratio] 38.9 kg/m2 Dr. Mathew Cobian MD Work Phone: 4(656)[phone] [place] [address] 11-05-2024 18:14-0400 Body weight 106.[address] Mathew Cobian MD Work Phone: 3(688)[phone] [place] [address] 07-25-2024 10:46-0500 Diastolic blood pressure 84 mm[Hg] Mathew Cobian MD Work Phone: [facility] 07-25-2024 10:46-0500 Heart rate 64 /min Mathew Cobian MD Work Phone: [facility] 07-25-2024 10:46-0500 Respiratory rate 18 /min Mathew Cobian MD Work Phone: [facility] 07-25-2024 10:46-0500 Systolic blood pressure 132 mm[Hg] Mathew Cobian MD Work Phone: [facility] 07-22-2024 19:56-0500 Diastolic blood pressure 70 mm[Hg] Dr. Mathew Cobian MD Work Phone: [facility] 07-22-2024 19:56-0500 Heart rate 55 /min Dr. Mathew Cobian MD Work Phone: [facility] 07-22-2024 19:56-0500 Respiratory rate 16 /min Dr. Mathew Cobian MD Work Phone: 0(022)601-025839 [place] [address] 07-22-2024 19:56-0500 SaO2% (BldA) [Mass fraction] 98 % Dr. Mathew Cobian MD Work Phone: 8(106)[phone] [place] [address] 07-22-2024 19:56-0500 Systolic blood pressure 122 mm[Hg] Dr. Mathew Cobian MD Work Phone: [facility] 07-22-2024 15:33-0500 Body temperature 98 [degF] Dr. Mathew Cobian MD Work Phone: [facility] 07-20-2024 17:20-0500 Diastolic Blood Pressure Non-Invasive 95 mm[Hg] KAE REICHFIELD DO [facility] 07-20-2024 17:20-0500 Heart rate 60 /min KAE REICHFIELD DO [facility] 07-20-2024 17:20-0500 Mean blood pressure 112 mm[Hg] KAE REICHFIELD DO [facility] 07-20-2024 17:20-0500 Respiratory rate 20 /min KAE REICHFIELD DO [facility] 07-20-2024 17:20-0500 Systolic Blood Pressure Non-Invasive 146 mm[Hg] KAE REICHFIELD DO [facility] 07-20-2024 14:33-0500 Body height 165.1 cm KAE REICHFIELD DO [facility] 07-20-2024 14:33-0500 Body temperature 98.06 [degF] KAE REICHFIELD DO [facility] 07-20-2024 14:33-0500 Body weight 100 kg KAE REICHFIELD DO [facility] 07-20-2024 14:33-0500 Diastolic Blood Pressure Non-Invasive 72 mm[Hg] KAE REICHFIELD DO [facility] 07-20-2024 14:33-0500 Heart rate 56 /min KAE REICHFIELD DO [facility] 07-20-2024 14:33-0500 Respiratory rate 20 /min [facility] DO [facility] 07-20-2024 14:33-0500 Systolic Blood Pressure Non-Invasive 127 mm[Hg] KAE [facility] DO [facility] 07-12-2024 10:48-0500 Body mass index (BMI) [Ratio] 36.61 kg/m2 Brian Ahmadi RETAIL SALES SPECIALIST.[employer]IST Work Phone: [facility] 07-12-2024 10:48-0500 Body weight 99.79 kg Brian Ahmadi RETAIL SALES SPECIALIST.[employer] MEDIA SPECIALIST Work Phone: [facility] 07-12-2024 10:48-0500 Diastolic blood pressure 88 mm[Hg] Brian Ahmadi RETAIL SALES SPECIALIST.[employer] MEDIA SPECIALIST Work Phone: [facility] 07-12-2024 10:48-0500 Heart rate 67 /min Brian Ahmadi RETAIL SALES SPECIALIST.[employer]IA SPECIALIST Work Phone: [facility] 07-12-2024 10:48-0500 Respiratory rate 20 /min Brian Ahmadi RETAIL SALES SPECIALIST.[employer]IA SPECIALIST Work Phone: [facility] 07-12-2024 10:48-0500 SaO2% (BldA) [Mass fraction] 98 % Brian Ahmadi RETAIL SALES SPECIALIST.[employer] MEDIA SPECIALIST Work Phone: [facility] 07-12-2024 10:48-0500 Systolic blood pressure 140 mm[Hg] Brian Daiana RETAIL SALES SPECIALIST.[employer] MEDIA SPECIALIST Work Phone: [facility] 05-22-2024 11:38-0400 Diastolic blood pressure 72 mm[Hg] Jennifer Paredesir RETAIL SALES SPECIALIST.[employer] MEDIA SPECIALIST Work Phone: [facility] 05-22-2024 11:38-0400 Heart rate 68 /min Jennifer Grayson RETAIL SALES SPECIALIST.[employer]IA SPECIALIST Work Phone: [facility] 05-22-2024 11:38-0400 SaO2% (BldA) [Mass fraction] 97 % Jennifer Grayson RETAIL SALES SPECIALIST.[employer]IA SPECIALIST Work Phone: [facility] 05-22-2024 11:38-0400 Systolic blood pressure 111 mm[Hg] Jennifer Grayson RETAIL SALES SPECIALIST.[employer]IA SPECIALIST Work Phone: [facility] 05-17-2024 12:45-0400 Body mass index (BMI) [Ratio] 37.35 kg/m2 Prema Moomaw RETAIL SALES SPECIALIST.[employer] MEDIA SPECIALIST Work Phone: [facility] 05-17-2024 12:45-0400 Body temperature 97.5 [degF] Prema Moomaw RETAIL SALES SPECIALIST.[employer]IA SPECIALIST Work Phone: [facility] 05-17-2024 12:45-0400 Body weight 101.8 kg Prema Moomaw RETAIL SALES SPECIALIST.[employer] MEDIA SPECIALIST Work Phone: [facility] 05-17-2024 12:45-0400 Diastolic blood pressure 71 mm[Hg] Prema Moomaw RETAIL SALES SPECIALIST.[employer]IA SPECIALIST Work Phone: [facility] 05-17-2024 12:45-0400 Heart rate 54 /min Prema Moomaw RETAIL SALES SPECIALIST.[employer] MEDIA SPECIALIST Work Phone: [facility] 05-17-2024 12:45-0400 Respiratory rate 20 /min Prema Moomaw RETAIL SALES SPECIALIST.[employer] MEDIA SPECIALIST Work Phone: [facility] 05-17-2024 12:45-0400 SaO2% (BldA) [Mass fraction] 97 % Prema Moomaw RETAIL SALES SPECIALIST.[employer] MEDIA SPECIALIST Work Phone: [facility] 05-17-2024 12:45-0400 Systolic blood pressure 110 mm[Hg] Prema Moomaw RETAIL SALES SPECIALIST.[employer] MEDIA SPECIALIST Work Phone: [facility] 05-13-2024 10:45-0400 Diastolic blood pressure 59 mm[Hg] Gilson Finelli DO Work Phone: [facility] 05-13-2024 10:45-0400 Heart rate 41 /min Gilson Finelli DO Work Phone: [facility] 05-13-2024 10:45-0400 Respiratory rate 11 /min Gilson Finelli DO Work Phone: [facility] 05-13-2024 10:45-0400 SaO2% (BldA) [Mass fraction] 100 % Gilson Finelli DO Work Phone: [facility] 05-13-2024 10:45-0400 Systolic blood pressure 102 mm[Hg] Gilson Finelli DO Work Phone: [facility] 05-13-2024 09:36-0400 Body temperature 97.2 [degF] Gilson Finelli DO Work Phone: [facility] 05-08-2024 12:52-0400 Body mass index (BMI) [Ratio] 37.28 kg/m2 Gilson Finelli DO Work Phone: [facility] 05-08-2024 12:52-0400 Body weight 101.61 kg Gilson Finelli DO Work Phone: [facility] 05-08-2024 12:52-0400 Diastolic blood pressure 64 mm[Hg] Gilson Finelli DO Work Phone: [facility] 05-08-2024 12:52-0400 Heart rate 63 /min Gilson Finelli DO Work Phone: [facility] 05-08-2024 12:52-0400 SaO2% (BldA) [Mass fraction] 95 % Gilson Finelli DO Work Phone: [facility] 05-08-2024 12:52-0400 Systolic blood pressure 101 mm[Hg] Gilson Finelli DO Work Phone: [facility] 05-03-2024 10:34-0400 Body temperature 97.7 [degF] Brian Ahmadi APRN.[employer]IA SPECIALIST Work Phone: [facility] 05-03-2024 10:24-0400 Body mass index (BMI) [Ratio] 36.94 kg/m2 Brian Daiana RETAIL SALES SPECIALIST.[employer] MEDIA SPECIALIST Work Phone: [facility] 05-03-2024 10:24-0400 Body weight 100.7 kg Brian Daiana RETAIL SALES SPECIALIST.[employer] MEDIA SPECIALIST Work Phone: [facility] 05-03-2024 10:24-0400 Diastolic blood pressure 80 mm[Hg] Brian Daiana RETAIL SALES SPECIALIST.[employer] MEDIA SPECIALIST Work Phone: [facility] 05-03-2024 10:24-0400 Heart rate 79 /min Brian Daiana RETAIL SALES SPECIALIST.[employer] MEDIA SPECIALIST Work Phone: [facility] 05-03-2024 10:24-0400 Respiratory rate 20 /min Brian Daiana RETAIL SALES SPECIALIST.[employer] MEDIA SPECIALIST Work Phone: [facility] 05-03-2024 10:24-0400 SaO2% (BldA) [Mass fraction] 98 % Brian Daiana RETAIL SALES SPECIALIST.[employer] MEDIA SPECIALIST Work Phone: [facility] 05-03-2024 10:24-0400 Systolic blood pressure 120 mm[Hg] Brian Daiana RETAIL SALES SPECIALIST.[employer] MEDIA SPECIALIST Work Phone: [facility] 04-30-2024 13:59-0400 Body temperature 97.7 [degF] Brian Daiana RETAIL SALES SPECIALIST.[employer] MEDIA SPECIALIST Work Phone: [facility] 04-30-2024 13:17-0400 Body mass index (BMI) [Ratio] 37.77 kg/m2 Brian Daiana RETAIL SALES SPECIALIST.[employer] MEDIA SPECIALIST Work Phone: [facility] 04-30-2024 13:17-0400 Body weight 102.97 kg Brian Daiana RETAIL SALES SPECIALIST.[employer] MEDIA SPECIALIST Work Phone: [facility] 04-30-2024 13:17-0400 Diastolic blood pressure 76 mm[Hg] Brian Daiana RETAIL SALES SPECIALIST.[employer] MEDIA SPECIALIST Work Phone: [facility] 04-30-2024 13:17-0400 Heart rate 64 /min Brian Daiana RETAIL SALES SPECIALIST.[employer] MEDIA SPECIALIST Work Phone: [facility] 04-30-2024 13:17-0400 Respiratory rate 16 /min Brian Ahmadi RETAIL SALES SPECIALIST.[employer] MEDIA SPECIALIST Work Phone: [facility] 04-30-2024 13:17-0400 SaO2% (BldA) [Mass fraction] 98 % Brian Ahmadi RETAIL SALES SPECIALIST.[employer] SPECIALIST Work Phone: [facility] 04-30-2024 13:17-0400 Systolic blood pressure 114 mm[Hg] Brian Ahmadi RETAIL SALES SPECIALIST.[employer] MEDIA SPECIALIST Work Phone: [facility] 04-17-2024 09:38-0400 Body mass index (BMI) [Ratio] 38.37 kg/m2 Gypsy Ayala RETAIL SALES SPECIALIST.[employer]IA SPECIALIST Work Phone: [facility] 04-17-2024 09:38-0400 Body weight 104.6 kg Gypsy Ayala RETAIL SALES SPECIALIST.[employer]IA SPECIALIST Work Phone: [facility] 04-17-2024 09:38-0400 Diastolic blood pressure 80 mm[Hg] Gypsy Ruizf RETAIL SALES SPECIALIST.[employer] MEDIA SPECIALIST Work Phone: [facility] 04-17-2024 09:38-0400 Heart rate 68 /min Gypsy Ayala RETAIL SALES SPECIALIST.[employer]IA SPECIALIST Work Phone: [facility] 04-17-2024 09:38-0400 Respiratory rate 16 /min Gypsy Ayala RETAIL SALES SPECIALIST.[employer] MEDIA SPECIALIST Work Phone: [facility] 04-17-2024 09:38-0400 SaO2% (BldA) [Mass fraction] 97 % Gypsy Ayala RETAIL SALES SPECIALIST.[employer]IA SPECIALIST Work Phone: [facility] 04-17-2024 09:38-0400 Systolic blood pressure 122 mm[Hg] Gypsy Ayala RETAIL SALES SPECIALIST.[employer]IA SPECIALIST Work Phone: [facility] 04-12-2024 10:22-0400 Body mass index (BMI) [Ratio] 38.11 kg/m2 Brian Ahmadi RETAIL SALES SPECIALIST.[employer] MEDIA SPECIALIST Work Phone: [facility] 04-12-2024 10:22-0400 Body weight 103.87 kg Brian Daiana RETAIL SALES SPECIALIST.[employer]IA SPECIALIST Work Phone: [facility] 04-12-2024 10:22-0400 Diastolic blood pressure 70 mm[Hg] Brian Daiana RETAIL SALES SPECIALIST.[employer] MEDIA SPECIALIST Work Phone: [facility] 04-12-2024 10:22-0400 Heart rate 61 /min Brian Daiana RETAIL SALES SPECIALIST.[employer]IA SPECIALIST Work Phone: [facility] 04-12-2024 10:22-0400 Respiratory rate 16 /min Brian Daiana RETAIL SALES SPECIALIST.[employer] MEDIA SPECIALIST Work Phone: [facility] 04-12-2024 10:22-0400 SaO2% (BldA) [Mass fraction] 98 % Brian Daiana RETAIL SALES SPECIALIST.[employer]IA SPECIALIST Work Phone: [facility] 04-12-2024 10:22-0400 Systolic blood pressure 112 mm[Hg] Brian Dainaa RETAIL SALES SPECIALIST.[employer]IA SPECIALIST Work Phone: [facility] 03-15-2024 10:23-0400 Diastolic blood pressure 68 mm[Hg] Brian Daiana RETAIL SALES SPECIALIST.[employer] MEDIA SPECIALIST Work Phone: [facility] 03-15-2024 10:23-0400 Heart rate 62 /min Brian Daiana RETAIL SALES SPECIALIST.[employer] MEDIA SPECIALIST Work Phone: [facility] 03-15-2024 10:23-0400 Respiratory rate 16 /min Brian Daiana RETAIL SALES SPECIALIST.[employer] MEDIA SPECIALIST Work Phone: [facility] 03-15-2024 10:23-0400 SaO2% (BldA) [Mass fraction] 95 % Brian Daiana RETAIL SALES SPECIALIST.[employer] MEDIA SPECIALIST Work Phone: [facility] 03-15-2024 10:23-0400 Systolic blood pressure 124 mm[Hg] Brian Daiana RETAIL SALES SPECIALIST.[employer] MEDIA SPECIALIST Work Phone: [facility] 03-12-2024 11:20-0400 Body height 165.1 cm Raphael Calderon Jr., MD Work Phone: [facility] 03-12-2024 11:20-0400 Body mass index (BMI) [Ratio] 38.11 kg/m2 Raphael Calderon Jr., MD Work Phone: [facility] 03-12-2024 11:20-0400 Body weight 103.87 kg Raphael Calderon Jr., MD Work Phone: [facility] 02-17-2024 11:53-0400 Body mass index (BMI) [Ratio] 38.7 kg/m2 Geovanna Steele APRN.[employer]IA SPECIALIST Work Phone: [facility] 02-17-2024 11:53-0400 Body temperature 96.91 [degF] Geovanna Steele APRN.[employer] SPECIALIST Work Phone: [facility] 02-17-2024 11:53-0400 Body weight 105.5 kg Geovanna Steele APRN.[employer] MEDIA SPECIALIST Work Phone: [facility] 02-17-2024 11:53-0400 Diastolic blood pressure 74 mm[Hg] Geovanna Steele APRN.[employer] SPECIALIST Work Phone: [facility] 02-17-2024 11:53-0400 Heart rate 75 /min Geovanna Steele APRN.[employer]IA SPECIALIST Work Phone: [facility] 02-17-2024 11:53-0400 Respiratory rate 21 /min Geovanna Steele APRN.[employer]IA SPECIALIST Work Phone: [facility] 02-17-2024 11:53-0400 SaO2% (BldA) [Mass fraction] 98 % Geovanna Steele APRN.[employer] SPECIALIST Work Phone: [facility] 02-17-2024 11:53-0400 Systolic blood pressure 120 mm[Hg] Geovanna Steele APRN.[employer] SPECIALIST Work Phone: [facility] 12-14-2023 10:58-0400 Body mass index (BMI) [Ratio] 37.81 kg/m2 Gypsy Ayala APRN.[employer] SPECIALIST Work Phone: [facility] 12-14-2023 10:58-0400 Body weight 103.06 kg Gypsybrandee Meridahof RETAIL SALES SPECIALIST.[employer] MEDIA SPECIALIST Work Phone: [facility] 12-14-2023 10:58-0400 Diastolic blood pressure 70 mm[Hg] Gypsy Tannhof RETAIL SALES SPECIALIST.[employer] MEDIA SPECIALIST Work Phone: [facility] 12-14-2023 10:58-0400 Heart rate 63 /min Gypsy Tannhof RETAIL SALES SPECIALIST.[employer] MEDIA SPECIALIST Work Phone: [facility] 12-14-2023 10:58-0400 Respiratory rate 16 /min Gypsy Tannhof RETAIL SALES SPECIALIST.[employer] MEDIA SPECIALIST Work Phone: [facility] 12-14-2023 10:58-0400 SaO2% (BldA) [Mass fraction] 97 % Gypsy Tannhof RETAIL SALES SPECIALIST.[employer]IA SPECIALIST Work Phone: [facility] 12-14-2023 10:58-0400 Systolic blood pressure 118 mm[Hg] Gypsy Tannhof RETAIL SALES SPECIALIST.[employer] MEDIA SPECIALIST Work Phone: [facility] 11-01-2023 14:16-0400 Body temperature 97.39 [degF] Barbara Quarles RETAIL SALES SPECIALIST.[employer] MEDIA SPECIALIST Work Phone: [facility] 11-01-2023 14:16-0400 Body weight 101.1 kg Barbara Quarles RETAIL SALES SPECIALIST.[employer] MEDIA SPECIALIST Work Phone: [facility] 11-01-2023 14:16-0400 Diastolic blood pressure 70 mm[Hg] Barbara Quarles RETAIL SALES SPECIALIST.[employer] MEDIA SPECIALIST Work Phone: [facility] 11-01-2023 14:16-0400 Heart rate 78 /min Barbara Quarles RETAIL SALES SPECIALIST.[employer] MEDIA SPECIALIST Work Phone: [facility] 11-01-2023 14:16-0400 Respiratory rate 21 /min Barbara Quarles RETAIL SALES SPECIALIST.[employer] MEDIA SPECIALIST Work Phone: [facility] 11-01-2023 14:16-0400 SaO2% (BldA) [Mass fraction] 98 % Barbara Quarles RETAIL SALES SPECIALIST.[employer] MEDIA SPECIALIST Work Phone: [facility] 11-01-2023 14:16-0400 Systolic blood pressure 120 mm[Hg] Barbara Quarles LUCIAN Work Phone: [facility] 10-17-2023 10:08-0400 Body weight 102.97 kg Mathew Cobian MD Work Phone: [facility] 10-17-2023 10:08-0400 Diastolic blood pressure 72 mm[Hg] Mathew Cobian MD Work Phone: [facility] 10-17-2023 10:08-0400 Heart rate 86 /min Mathew Cobian MD Work Phone: [facility] 10-17-2023 10:08-0400 Respiratory rate 16 /min Mathew Cobian MD Work Phone: [facility] 10-17-2023 10:08-0400 SaO2% (BldA) [Mass fraction] 98 % Mathew Cobian MD Work Phone: [facility] 10-17-2023 10:08-0400 Systolic blood pressure 120 mm[Hg] Mathew Cobian MD Work Phone: [facility] 09-29-2023 11:50-0500 Body temperature 98.4 [degF] Evan Burnham MD Work Phone: [facility] 09-29-2023 11:50-0500 Diastolic blood pressure 64 mm[Hg] Evan Burnham MD Work Phone: [facility] 09-29-2023 11:50-0500 Heart rate 56 /min Evan Burnham MD Work Phone: [facility] 09-29-2023 11:50-0500 Respiratory rate 20 /min Evan Burnham MD Work Phone: [facility] 09-29-2023 11:50-0500 SaO2% (BldA) [Mass fraction] 94 % Evan Burnham MD Work Phone: [facility] 09-29-2023 11:50-0500 Systolic blood pressure 131 mm[Hg] Evan Burnham MD Work Phone: [facility] 09-27-2023 02:14-0500 Body height 165.1 cm Evan Burnham MD Work Phone: [facility] 09-27-2023 02:14-0500 Body mass index (BMI) [Ratio] 35.78 kg/m2 Evan Burnham MD Work Phone: [facility] 09-27-2023 02:14-0500 Body weight 97.52 kg Evan Burnham MD Work Phone: [facility] 09-14-2023 12:20-0500 Body weight 100.25 kg Gypsy Ayala RETAIL SALES SPECIALIST.[employer]IA SPECIALIST Work Phone: [facility] 09-14-2023 12:20-0500 Diastolic blood pressure 68 mm[Hg] Gypsy Ayala RETAIL SALES SPECIALIST.[employer] MEDIA SPECIALIST Work Phone: [facility] 09-14-2023 12:20-0500 Heart rate 64 /min Gypsy Ayala RETAIL SALES SPECIALIST.[employer]IA SPECIALIST Work Phone: [facility] 09-14-2023 12:20-0500 Respiratory rate 16 /min Gypsy Ayala RETAIL SALES SPECIALIST.[employer] MEDIA SPECIALIST Work Phone: [facility] 09-14-2023 12:20-0500 SaO2% (BldA) [Mass fraction] 97 % Gypsy Ayala RETAIL SALES SPECIALIST.[employer]IA SPECIALIST Work Phone: [facility] 09-14-2023 12:20-0500 Systolic blood pressure 112 mm[Hg] Gypsy Ayala APRN.[employer] SPECIALIST Work Phone: [facility] 04-12-2023 19:25-0400 Body temperature 99.3 [degF] Geovanna Steele APRN.[employer] SPECIALIST Work Phone: [facility] 04-12-2023 19:25-0400 Body weight 105.51 kg Geovanna Steele APRN.[employer] SPECIALIST Work Phone: [facility] 04-12-2023 19:25-0400 Diastolic blood pressure 72 mm[Hg] Geovanna Steele APRN.[employer] SPECIALIST Work Phone: [facility] 04-12-2023 19:25-0400 Heart rate 85 /min Geovanna Steele APRN.[employer] SPECIALIST Work Phone: [facility] 04-12-2023 19:25-0400 Respiratory rate 21 /min Geovanna Steele APRN.[employer] SPECIALIST Work Phone: [facility] 04-12-2023 19:25-0400 SaO2% (BldA) [Mass fraction] 98 % Geovanna Steele APRN.[employer] SPECIALIST Work Phone: [facility] 04-12-2023 19:25-0400 Systolic blood pressure 114 mm[Hg] Geovanna Steele APRN.[employer] SPECIALIST Work Phone: [facility] 12-20-2022 10:16-0400 Body weight 100.61 kg Brian Ahmadi RETAIL SALES SPECIALIST.[employer] SPECIALIST Work Phone: [facility] 12-20-2022 10:16-0400 Diastolic blood pressure 82 mm[Hg] Brian Daiana RETAIL SALES SPECIALIST.[employer]IA SPECIALIST Work Phone: [facility] 12-20-2022 10:16-0400 Heart rate 61 /min Brian Ahmadi RETAIL SALES SPECIALIST.[employer]IA SPECIALIST Work Phone: [facility] 12-20-2022 10:16-0400 Respiratory rate 16 /min Brian Ahmadi RETAIL SALES SPECIALIST.[employer]IA SPECIALIST Work Phone: [facility] 12-20-2022 10:16-0400 SaO2% (BldA) [Mass fraction] 96 % Brian Ahmadi RETAIL SALES SPECIALIST.[employer] SPECIALIST Work Phone: [facility] 12-20-2022 10:16-0400 Systolic blood pressure 128 mm[Hg] Brian Daiana RETAIL SALES SPECIALIST.[employer] SPECIALIST Work Phone: [facility] 06-07-2022 14:36-0500 Body weight 97.8 kg Mathew Cobian MD Work Phone: [facility] 06-07-2022 14:36-0500 Diastolic blood pressure 76 mm[Hg] Mathew Cobian MD Work Phone: [facility] 06-07-2022 14:36-0500 Heart rate 72 /min Mathew Cobian MD Work Phone: [facility] 06-07-2022 14:36-0500 Respiratory rate 16 /min Mathew Cobian MD Work Phone: [facility] 06-07-2022 14:36-0500 Systolic blood pressure 124 mm[Hg] Mathew Cobian MD Work Phone: [facility] 02-27-2022 12:26-0400 Body height 165.1 cm [facility] Work Phone: 02-27-2022 12:26-0400 Body mass index (BMI) [Ratio] 35.7 kg/m2 [facility] Work Phone: 02-27-2022 12:26-0400 Body temperature 98.7 [degF] [facility] Work Phone: 02-27-2022 12:26-0400 Body weight 97.52 kg [facility] Work Phone: 02-27-2022 12:26-0400 Diastolic blood pressure 81 mm[Hg] [facility] Work Phone: 02-27-2022 12:26-0400 Heart rate 82 /min [facility] Work Phone: 02-27-2022 12:26-0400 Respiratory rate 18 /min [facility] Work Phone: 02-27-2022 12:26-0400 SaO2% (BldA) [Mass fraction] 98 % [facility] Work Phone: 02-27-2022 12:26-0400 Systolic blood pressure 148 mm[Hg] [facility] Work Phone: 01-14-2022 11:08-0400 Body temperature 97.39 [degF] Hardik Spain DO Work Phone: [facility] 01-14-2022 11:08-0400 Body weight 101.15 kg Hardik Spain DO Work Phone: [facility] 01-14-2022 11:08-0400 Diastolic blood pressure 76 mm[Hg] Hardik Pruitti DO Work Phone: [facility] 01-14-2022 11:08-0400 Heart rate 68 /min Hardik Spain DO Work Phone: [facility] 01-14-2022 11:08-0400 Systolic blood pressure 124 mm[Hg] Hardik Pruitti DO Work Phone: [facility] Encounters Encounter Date Encounter Type Care Provider Facility Start: 04-06-2025 End: 04-07-2025 Emergency department patient visit Dr. Mathew Cobian MD Work Phone: -Emergency Department Work Phone: Start: 04-03-2025 End: 04-03-2025 Telephone encounter Mathew Cobian MD Work Phone: [facility] Start: 03-28-2025 End: 03-28-2025 Subsequent hospital visit by physician Xr [facility] Work Phone: Radiology Comment on above: Orthopnea [R06.01] Start: 03-28-2025 End: 03-28-2025 ambulatory Mathew Cobian MD Work Phone: [facility] Comment on above: Shortness of Breath Start: 03-28-2025 End: 03-28-2025 Patient encounter procedure Ino Esqueda APRN.CNP Work Phone: [facility] Comment on above: Orthopnea (Primary D x); Bilateral impacted cerumen Start: 03-27-2025 End: 03-28-2025 E-mail encounter from caregiver Ino Esqueda APRN.CNP Work Phone: [facility] Start: 03-27-2025 End: 03-28-2025 Patient encounter procedure Ino Esqueda APRN.CNP Work Phone: [facility] Comment on above: Appointment Request Start: 03-18-2025 End: 03-18-2025 Patient encounter procedure Ino Esqueda APRN.[employer]IST Work Phone: [facility] Comment on above: Obstructive sleep ap cookie syndrome (Primary Dx); Bilateral impacted cerumen Start: 03-18-2025 End: 03-18-2025 ambulatory MATHEW COBIAN Facility:[facility] Start: 03-14-2025 End: 03-18-2025 Telephone encounter Mathew Cobian MD Work Phone: [facility] Comment on above: CPAP order Patient Question Start: 03-13-2025 End: 03-13-2025 Refill Mathew Cobian MD Work Phone: [facility] Comment on above: Refill Request Start: 02-11-2025 End: 02-11-2025 Refill Mathew Cobian MD Work Phone: [facility] Comment on above: Refill Request Start: 01-31-2025 End: 01-31-2025 ambulatory No Pcp (Hist) [facility] Start: 01-31-2025 End: 01-31-2025 Patient encounter procedure No Pcp (Hist) [facility] Start: 01-29-2025 End: 01-29-2025 Emergency department patient visit Dr. Mathew Cobian MD Work Phone: -Emergency Department Work Phone: Start: 01-29-2025 End: 01-30-2025 Telephone encounter Ino Esqueda APRN.[employer]IST Work Phone: [facility] Start: 01-28-2025 End: 01-28-2025 Patient encounter procedure Ino Esqueda APRN.[employer]IST Work Phone: [facility] Comment on above: Thrush (Primary Dx) Start: 01-28-2025 End: 01-28-2025 ambulatory MATHEW COBIAN Facility:[facility] Start: 01-27-2025 End: 01-27-2025 Office outpatient visit 25 minutes Mega Loja PA-C Work Phone: [facility] Comment on above: Sore throat (Primary Dx); Allergic rhinitis, unspecified seasonality, unspecified trigger Start: 01-27-2025 End: 01-27-2025 ambulatory MATHEW COBIAN Facility:[facility] Start: 01-23-2025 End: 01-23-2025 Follow-up encounter Ino Esqueda APRN.[employer]IST Work Phone: [facility] Start: 01-20-2025 End: 01-21-2025 Emergency department patient visit Dr. Mathew Cobian MD Work Phone: -Emergency Department Work Phone: Start: 01-17-2025 End: 01-17-2025 ambulatory Mathew Cobian MD Work Phone: Family [facility] [place] Comment on above: Rectal Problem Start: 01-17-2025 End: 01-17-2025 Patient encounter procedure Ino Esqueda APRN.[employer]CHO[employer] LIBR[employer] MEDIA SPECIALIST Work Phone: Family [facility] [place] Comment on above: Blood in stool (Prim kamille Dx); Diverticulitis; Fatigue, unspecified type; Low energy; Chronic bilateral low back pain with right-sided sciatica Start: 01-14-2025 End: 01-14-2025 Patient encounter procedure Ino Esqueda APRN.[employer]CHO[employer] MEDIA SPECIALIST Work Phone: Family [facility] [place] Comment on above: Diverticulitis (Prim kamille Dx); Skin tags, multiple acquired Start: 01-14-2025 End: 01-14-2025 ambulatory Yuko Erazo RN NURSE REPACK ROOM WORKER Comment on above: Medication Question Start: 01-10-2025 End: 01-10-2025 Telephone encounter Mathew Cobian MD Work Phone: [facility] [place] Comment on above: Medication Problem Start: 12-25-2024 End: 12-25-2024 Patient encounter procedure Greyson Ellsworth APRN.HIGH SCHO[employer]RARY MEDIA SPECIALIST Work Phone: [facility] Comment on above: Sore throat (Primary Dx); Viral illness; Seasonal allergic rhinitis, unspecified trigger Start: 12-25-2024 End: 12-25-2024 ambulatory Mathew Cobian MD Work Phone: [facility] [place] Comment on above: Sore Throat Start: 12-13-2024 End: 12-13-2024 ambulatory MATHEW COBIAN Facility:[facility] Start: 11-05-2024 End: 11-05-2024 Emergency department patient visit Dr. Mathew Cobian MD Work Phone: -Emergency Department Work Phone: Start: 10-31-2024 End: 11-01-2024 Follow-up encounter Renard Farias MA [facility] Comment on above: Results Start: 10-28-2024 ambulatory RAPHAEL CALDERON JR Facility:[facility] Start: 10-28-2024 End: 10-28-2024 Subsequent hospital visit by physician Mri [facility] (I-Stat/Lg Bore/3t) [facility] Comment on above: Prostate cancer (HCC ) [C61] Start: 09-10-2024 End: 09-10-2024 Telephone encounter Raphael Calderon MD Work Phone: Urology Comment on above: Appointment Start: 08-26-2024 End: 08-26-2024 ambulatory MATHEW COBIAN Facility:[facility] Start: 08-26-2024 End: 08-26-2024 Patient encounter procedure Tammie Vetovitomas PA-C Work Phone: Orthopaedics Comment on above: Other closed fractur e of proximal end of right fibula with routine healing, subsequent encounter (Primary Dx) Start: 08-26-2024 End: 08-26-2024 Subsequent hospital visit by physician Cris [facility] [place] [facility] Work Phone: Radiology Start: 08-20-2024 End: 08-20-2024 Orders Only Tammie Vetovitz PA-C Work Phone: Orthopaedics Comment on above: Other closed fractur e of proximal end of right fibula, initial encounter (Primary Dx) Start: 08-06-2024 End: 08-06-2024 Refill Mathew Cobian MD Work Phone: Family [facility] Comment on above: Refill Request Start: 07-29-2024 End: 07-29-2024 Subsequent hospital visit by physician Cris [facility] [place] Work Phone: Radiology Comment on above: [...] Start: 07-25-2024 End: 07-25-2024 ambulatory MATHEW COBIAN Facility:[facility] Start: 07-25-2024 End: 07-25-2024 Patient encounter procedure Mathew Cobian MD Work Phone: [facility] [place] Comment on above: Hospital discharge f ollow-up (Primary Dx); Closed fracture of proximal end of right fibula, unspecified fracture morphology, sequela; Prostate cancer (HCC) Start: 07-23-2024 End: 07-23-2024 Telephone encounter Mathew Cobian MD Work Phone: Family [facility] [place] Comment on above: [facility] ER f/u Start: 07-22-2024 End: 07-22-2024 Emergency department patient visit Dr. Franklyn Donaldson DO -Emergency Department Work Phone: Start: 07-20-2024 End: 07-20-2024 Emergency department patient visit KAE BARBER DO [facility] Start: 07-18-2024 End: 07-23-2024 Telephone encounter Brian Ahmadi APRN.CNP Work Phone: Family Medicine [place] Comment on above: Results Start: 07-12-2024 End: 07-12-2024 ambulatory BRIAN AHMADI Facility:[facility] Start: 07-12-2024 End: 07-12-2024 Office outpatient visit 25 minutes Brian Ahmadi RETAIL SALES SPECIALIST.HIGH SCHOOL LIBRARY MEDIA SPECIALIST Work Phone: [facility] [place] Comment on above: Hypothyroidism, unsp ecified type (Primary Dx); Recurrent major depressive disorder, remission status unspecified (HCC); Anxiety; Confusion Start: 06-12-2024 End: 06-13-2024 Telephone encounter Mathew Cobian MD Work Phone: [facility] [place] Comment on above: Forms Start: 06-10-2024 End: 06-27-2024 Telephone encounter Mathew Cobian MD Work Phone: [facility] [place] Comment on above: Forms (Apt modificat ion form) Start: 06-07-2024 End: 06-07-2024 ambulatory Calixto Chandler RN NURSE REPACK ROOM WORKER Start: 06-07-2024 End: 06-07-2024 Patient encounter procedure Calixto Chandler RN NURSE REPACK ROOM WORKER Comment on above: Referral Request Start: 06-07-2024 End: 06-09-2024 Telephone encounter Self [facility] [place] Start: 06-03-2024 End: 06-03-2024 Telemedicine consultation with patient Devi Cisse MD Work Phone: Neurology Start: 06-03-2024 End: 06-03-2024 ambulatory Devi Cisse MD Work Phone: Neurology Comment on above: Confusion (Primary D x) Start: 06-03-2024 End: 06-03-2024 Telephone encounter Devi Cisse MD Work Phone: Pain Management Comment on above: Appointment Start: 05-22-2024 End: 05-22-2024 ambulatory GILSON BAR Facility:[facility] Start: 05-22-2024 End: 05-22-2024 Patient encounter procedure Jennifer Galicia APRN.HIGH SCHO[employer]RARY MEDIA SPECIALIST Work Phone: General Surgery Comment on above: History of colonic p olyps (Primary Dx) Start: 05-17-2024 End: 05-17-2024 ambulatory MATHEW COBIAN Facility:[facility] Start: 05-17-2024 End: 05-17-2024 Patient encounter procedure Prema Turner RETAIL SALES SPECIALIST.H[employer]CHO[employer] LIBRARY MEDIA SPECIALIST Work Phone: [facility] Comment on above: Abrasion of lower le g, unspecified laterality, initial encounter (Primary Dx) Start: 05-16-2024 End: 05-16-2024 Telephone encounter Mathew Cobian MD Work Phone: [facility] [place] Comment on above: Letter Start: 05-14-2024 End: 05-14-2024 Patient Outreach Sp Dahl RN Work Phone: [employer] Comment on above: Transition Of Care ( [facility] Initial Hospital Discharge /[place] 05/13/24) Initial phone contact for Transitional Care Management Start: 05-13-2024 ambulatory MATHEW COBIAN [facility] ity:[facility] Start: 05-13-2024 End: 05-13-2024 Subsequent hospital visit by physician Gilson Bar DO Work Phone: [facility] Endoscopy Comment on above: Diverticulitis [K57. 92] Start: 05-12-2024 End: 05-13-2024 ambulatory GILSON BAR Facility:[facility] Start: 05-08-2024 End: 05-08-2024 ambulatory BRIAN AHMADI Facility:[facility] Start: 05-08-2024 End: 05-08-2024 Office consultation new/estab patient 30 min Gilson Bar DO Work Phone: General Surgery Comment on above: Blood in stool (Prim kamille Dx); Diverticulitis; Bloody stools Start: 05-03-2024 End: 05-03-2024 Office outpatient visit 15 minutes Brian Ahmadi APRN.HIGH SCHO[employer] LIBRARY MEDIA SPECIALIST Work Phone: [facility] [place] Comment on above: Diverticulitis (Prim kamille Dx); Bloody stools Start: 05-03-2024 End: 05-03-2024 ambulatory RAPHAEL CALDERON JR Facility:[facility] Start: 05-01-2024 End: 05-02-2024 ambulatory Raphael Calderon MD Work Phone: Urology Comment on above: Prostate Start: 04-30-2024 End: 04-30-2024 Office outpatient visit 25 minutes Brian Ahmadi APRN.HIGH SCHOOL LIBR[employer] MEDIA SPECIALIST Work Phone: [facility] Comment on above: Diverticulitis (Prim kamille Dx); Bloody stools; Encounter for immunization Start: 04-30-2024 End: 04-30-2024 ambulatory BRIAN AHMADI Facility:[facility] Start: 04-24-2024 End: 04-25-2024 Refill Mathew Cobian MD Work Phone: [facility] Comment on above: Refill Request Start: 04-23-2024 End: 04-23-2024 Emergency department patient visit Mathew Cobian Facility:[facility] Start: 04-23-2024 End: 04-23-2024 ambulatory Mathew Cobian MD Work Phone: [facility] Comment on above: Rectal Bleeding Start: 04-17-2024 End: 04-17-2024 Patient encounter procedure Gypsy Ayala APRN.HIGH SCHO[employer] MEDIA SPECIALIST Work Phone: [facility] Comment on above: Hypothyroidism, unsp ecified type (Primary Dx); Memory loss; Neck mass Start: 04-17-2024 End: 04-17-2024 ambulatory GYPSY AYALA Facility:[facility] Start: 04-14-2024 End: 04-14-2024 ambulatory Brian Ahmadi APRN.HIGH SCHOOL LIBRARY MEDIA SPECIALIST Work Phone: [facility] Comment on above: TSH Start: 04-14-2024 End: 04-14-2024 E-mail encounter from caregiver Brian Ahmadi APRN.HIGH SCHOOL LIBRARY MEDIA SPECIALIST Work Phone: [facility] Start: 04-12-2024 End: 04-12-2024 ambulatory BRIAN AHMADI Facility:[facility] Start: 04-12-2024 End: 04-12-2024 Office outpatient visit 15 minutes Brian Ahmadi APRN.HIGH SCHOOL LIBRARY MEDIA SPECIALIST Work Phone: [facility] Comment on above: Recurrent major depr essive disorder, remission status unspecified (HCC) (Primary Dx); MANNY (generalized anxiety disorder); Hypothyroidism, unspecified type Start: 04-04-2024 End: 04-04-2024 Telephone encounter Mathew Cobian MD Work Phone: [facility] Medicine [place] Comment on above: Consult Start: 03-15-2024 End: 03-15-2024 Telephone encounter Brian Ahmadi APRN.HIGH SCHO[employer] MEDIA SPECIALIST Work Phone: Family [facility] [place] Comment on above: Patient Question Start: 03-15-2024 End: 03-15-2024 Office outpatient visit 25 minutes Brian Ahmadi APRN.HIGH SCHOOL LIBRARY MEDIA SPECIALIST Work Phone: [facility] [place] Comment on above: Hypothyroidism, unsp ecified type (Primary Dx); Recurrent major depressive disorder, remission status unspecified (HCC); MANNY (generalized anxiety disorder); Memory loss Start: 03-13-2024 End: 03-13-2024 Telephone encounter Brian Ahmadi APRN.HIGH SCHOOL LIBRARY MEDIA SPECIALIST Work Phone: [facility] [place] Comment on above: Results Start: 03-12-2024 End: 03-12-2024 Patient encounter procedure Raphael Calderon MD Work Phone: Urology Comment on above: Prostate cancer (HCC ) Start: 02-27-2024 Telephone encounter Mathew flores MD Work Phone: [facility] [place] Comment on above: Appointment; Patient Question Start: 02-17-2024 End: 02-17-2024 Patient encounter procedure Geovanna Steele APRN.HIGH SCHOOL LIBRARY MEDIA SPECIALIST Work Phone: [facility] Comment on above: Rash (Primary Dx) Start: 01-29-2024 Refill Brian DUMONT RN.HIGH SCHOOL LIBRARY MEDIA SPECIALIST Work Phone: [facility] [place] Comment on above: Refill Request Start: 12-20-2023 Telephone encounter Gypsy arreola APRN.HIGH SCHOOL LIBRARY MEDIA SPECIALIST Work Phone: [facility] [place] Comment on above: Results (Labs ) Start: 12-14-2023 End: 12-14-2023 Patient encounter procedure Gypsy Tannhof RETAIL SALES SPECIALIST.HIGH SCHOOL LIBRARY MEDIA SPECIALIST Work Phone: [facility] Comment on above: Irritability (Primar y Dx); Anxiety; Memory changes; Hypothyroidism, unspecified type; Sensation of fullness in both ears; Cerebral palsy, unspecified type (HCC); Alcohol use Start: 12-07-2023 Refill Gypsy Ayala RETAIL SALES SPECIALIST.HIGH SCHOOL LIBRARY MEDIA SPECIALIST Work Phone: [facility] [place] Comment on above: Med Change Request Start: 12-06-2023 ambulatory Ava Dunn RN NURSE O N CALL Comment on above: Medication Problem Start: 12-06-2023 Telephone encounter Gypsy arreola RETAIL SALES SPECIALIST.HIGH SCHOOL LIBRARY MEDIA SPECIALIST Work Phone: [facility] [place] Comment on above: Medication Problem Start: 11-03-2023 Telephone encounter Carolyn Tavera RETAIL SALES SPECIALIST.HIGH SCHOOL LIBRARY MEDIA SPECIALIST Work Phone: [facility] Start: 11-02-2023 Refill Gypsy Ayala RETAIL SALES SPECIALIST.HIGH SCHOOL LIBRARY MEDIA SPECIALIST Work Phone: [facility] [place] Comment on above: Med Change Request Start: 11-01-2023 End: 11-01-2023 Subsequent hospital visit by physician [facility] Comment on above: Pain in right testic le [N50.811] Start: 11-01-2023 End: 11-01-2023 Patient encounter procedure Barbara Quarles RETAIL SALES SPECIALIST.HIGH SCHOOL LIBRARY MEDIA SPECIALIST Work Phone: [facility] Comment on above: Pain in right testic le (Primary Dx); Right groin pain Start: 10-26-2023 Telephone encounter Mathew flores MD Work Phone: [facility] Comment on above: Handicap placard Start: 10-17-2023 End: 10-17-2023 Patient encounter procedure Mathew Cobian MD Work Phone: [facility] Comment on above: Hospital discharge f ollow-up (Primary Dx); Screening for colon cancer; Chronic bilateral low back pain with right-sided sciatica; Dizziness; Cerebral palsy, unspecified type (HCC); Recurrent major depressive disorder, remission status unspecified (HCC); Prostate cancer (HCC) Start: 10-16-2023 Telephone encounter Mathew flores MD Work Phone: [facility] [place] Comment on above: Patient Update Start: 10-11-2023 Telephone encounter Cameron de los santos MD Work Phone: [facility] Comment on above: New Patient (Develop mental venous anomaly 09/26/23 ED admission) Start: 10-02-2023 Telephone encounter Mathew flores MD Work Phone: [facility] [place] Comment on above: Patient Update; FYI- No Action Needed Start: 09-29-2023 End: 09-29-2023 ambulatory MATHEW Barbosa [facility] Facility:[facility] Start: 09-27-2023 Telephone encounter Mathew flores MD Work Phone: [facility] [place] Comment on above: Patient Update Start: 09-26-2023 End: 09-29-2023 Evaluation and management of inpatient [facility] Facility:[facility] Start: 09-26-2023 End: 09-29-2023 Evaluation and management of inpatient Evan Burnham MD Work Phone: [facility] Comment on above: Developmental venous anomaly Start: 09-15-2023 Telephone encounter Gypsy arreola APRN.HIGH SCHOOL LIBRARY MEDIA SPECIALIST Work Phone: [facility] [place] Comment on above: Results (Labs ); Ord ers Start: 09-14-2023 End: 09-14-2023 Patient encounter procedure Gypsy Aylaa APRN.HIGH SCHOOL LIBRARY MEDIA SPECIALIST Work Phone: [facility] [place] Comment on above: JODEE (obstructive sle ep apnea) (Primary Dx); Bilateral impacted cerumen; Brain fog; Hypothyroidism, unspecified type; Vitamin D deficiency Start: 09-12-2023 End: 09-12-2023 ambulatory MATHEW Barbosa [facility] Facility:[facility] Start: 08-25-2023 Telephone encounter Mathew flores MD Work Phone: [facility] [place] Comment on above: Forms ([employer]) Start: 08-17-2023 Telephone encounter Mathew flores MD Work Phone: [facility] [place] Comment on above: Forms Start: 07-31-2023 End: 07-31-2023 Subsequent hospital visit by physician Xr [facility] [place] Work Phone: Radiology Comment on above: Subacute cough [R05. 2] Start: 06-14-2023 Refill Brian DUMONT RN.HIGH SCHOOL LIBRARY MEDIA SPECIALIST Work Phone: [facility] Comment on above: Refill Request Start: 04-17-2023 Telephone encounter Mathew flores MD Work Phone: [facility] Comment on above: FYI-No Action Needed (Dr. Conklin's office will not see pt) Start: 04-14-2023 Telephone encounter Geovanna Steele APRN.HIGH SCHOOL LIBRARY MEDIA SPECIALIST Work Phone: [facility] Comment on above: Results Start: 04-12-2023 End: 04-12-2023 Patient encounter procedure Geovanna Steele APRN.HIGH SCHOOL LIBRARY MEDIA SPECIALIST Work Phone: [facility] Comment on above: Urinary frequency (P rimary Dx); Prostatitis, acute Start: 04-12-2023 Telephone encounter Mathew flores MD Work Phone: [facility] Comment on above: UTI s/s Start: 03-29-2023 ambulatory No Pcp RETAIL SALES SPECIALIST Kierra mcintosh Algaaciq Start: 03-16-2023 Telephone encounter Mathew flores MD Work Phone: [facility] Comment on above: Referral Request Start: 03-16-2023 End: 03-16-2023 ambulatory [facility] Work Phone: Start: 03-16-2023 End: 03-16-2023 Discharged Recurring [facility]-Physical Therapy Work Phone: Start: 01-11-2023 Telephone encounter Mathew flores MD Work Phone: [facility] Comment on above: Letter; Forms Start: 12-21-2022 Telephone encounter Mathew flores MD Work Phone: [facility] Comment on above: Letter Start: 12-20-2022 End: 12-20-2022 Office outpatient visit 25 minutes Brian Ahmadi LUCIAN Work Phone: Family [facility] [place] Comment on above: Cerebral palsy, unsp ecified type (HCC) (Primary Dx); Congenital diplegia (HCC); Hypothyroidism, unspecified type; GERD without esophagitis; Anxiety; JODEE (obstructive sleep apnea); Prostate cancer (HCC); Vitamin D deficiency; Recurrent major depressive disorder, remission status unspecified (HCC) Start: 11-24-2022 Telephone encounter Mathew flores MD Work Phone: [facility] [place] Comment on above: Forms ([employer] re: JODEE supplies) Start: 11-14-2022 Telephone encounter Mathew flores MD Work Phone: [facility] [place] Comment on above: Lab Orders Start: 09-16-2022 Telephone encounter Hardik quintanilla DO Work Phone: Hematology/Oncology Comment on above: Refill Request Start: 07-22-2022 Refill Mathew manuel MD Work Phone: [facility] [place] Comment on above: Refill Request Start: 06-10-2022 Telephone encounter Mathew flores MD Work Phone: [facility] [place] Comment on above: Results Start: 06-07-2022 End: 06-07-2022 Patient encounter procedure Mathew Cobian MD Work Phone: [facility] [place] Comment on above: Cerebral palsy, unsp [...] 04-19-2022 ambulatory Helder Sibley DO Work Phone: [facility] Comment on above: Malignant neoplasm o f prostate (HCC) (Primary Dx) Start: 04-19-2022 End: 04-19-2022 Telemedicine consultation with patient Helder Sibley DO Work Phone: [employer] Start: 03-03-2022 Refill Hardik Joseph Work Phone: Hematology/Oncology Comment on above: Refill Request Start: 03-02-2022 Patient Outreach Mathew mensah MD Work Phone: [facility] Comment on above: Transition Of Care Start: 02-27-2022 End: 02-27-2022 Emergency department patient visit [facility]Emergency Department Start: 02-17-2022 Telephone encounter Robert lowe [...] encounter procedure Hardik Spain DO Work Phone: [facility] Start: 01-14-2022 End: 01-14-2022 Subsequent hospital visit by physician Xr [facility] Work Phone: Radiology Comment on above: Abnormal x-ray of pe lvis [R93.7] Start: 12-23-2021 ambulatory Mathew manuel MD Work Phone: [facility] Comment on above: CPAP Start: 12-22-2021 Telephone encounter Robert lowe MD Work Phone: Neurology Comment on above: Patient Update (home health ) Start: 12-13-2021 Refill Brian DUMONT RN.HIGH SCHOOL LIBRARY MEDIA SPECIALIST Work Phone: [facility] Comment on above: Refill Request Start: 12-11-2021 ambulatory Merlyn Rutherford RN SHANEKA SE REPACK ROOM WORKER Comment on above: Blood Pressure Start: 11-26-2021 Refill Mathew manuel MD Work Phone: [facility] [place] Comment on above: Refill Request Start: 10-27-2021 Telephone encounter Robert lowe MD Work Phone: PHYSICAL MEDICINE & REHAB Comment on above: HHC and POC Start: 08-26-2021 End: 08-26-2021 Subsequent hospital visit by physician Mri Radio [facility] (I-Stat/1.5t) Work Phone: Radiology Comment on above: Canceled (Pt cx: Wea ther) Start: 03-18-2021 End: 03-18-2021 Subsequent hospital visit by physician Xr [facility] Work Phone: Radiology Comment on above: Pain [R52] Procedures Date Procedure Procedure Detail Performing Clinician Start: 04-07-2025 Methadone measuremen t, urine Dr. Mathew Cobian MD Work Phone: Start: 04-06-[address] Mathew Cobian MD Work Phone: Start: 03-28-2025 Radiologic exam ches t 2 views Ino Esqueda APRN.HIGH SCHOOL LIBRARY MEDIA SPECIALIST Work Phone: Start: 01-27-2025 Iadna streptococcus group a amplified probe tq Mega Loja PA-C Work Phone: Start: 01-21-2025 CT of head without contrast Dr. Mathew Cobian MD Work Phone: Start: 01-20-[address] Mathew Cobian MD Work Phone: Start: 12-25-2024 Iadna streptococcus group a amplified probe tq Ronald Cat APRN.HIGH SCHOOL LIBRARY MEDIA SPECIALIST Work Phone: Start: 07-22-2024 MRI of lower extremity Dr. Mathew Cobian MD Work Phone: Start: 07-22-2024 Plain X-ray of tibia and fibula Dr. Mathew Cobian MD Work Phone: Start: 05-13-2024 Colonoscopy flx dx w /collj spec when pfrmd Gilson C Finelli DO Work Phone: Start: 05-13-2024 Colonoscopy Gilson navarrolli DO Work Phone: Start: 04-30-2024 PFIZER-BIONTECH COVI D-19 VACCINE AGE 12+ YR (COMIRNATY) Brian Ahmadi RETAIL SALES SPECIALIST.HIGH SCHOOL LIBRARY MEDIA SPECIALIST Work Phone: Start: 11-01-2023 Dup-scan artl flora abdl/pel/scrot&/rpr orgn com Barbara Quarles RETAIL SALES SPECIALIST.HIGH SCHOOL LIBRARY MEDIA SPECIALIST Work Phone: Start: 11-01-2023 Us scrotum & contents J natalya Quarles RETAIL SALES SPECIALIST.HIGH SCHOOL LIBRARY MEDIA SPECIALIST Work Phone: Start: 11-01-2023 Urnls dip stick/tabl [...] on above: Performed By: #### A 1CB, [id number] #### [facility] ([facility]) [address] [place] [address] Start: 09-27-2023 Mri brain brain stem w/o [...] Work Phone: Start: 09-26-2023 Lipid panel Keisha lAcantara MD Work Phone: Start: 09-26-2023 LT BLUE [...] exam ches t 2 views Willie Gilbert RETAIL SALES SPECIALIST.HIGH SCHOOL LIBRARY MEDIA SPECIALIST Work Phone: Start: 04-12-2023 Urnls dip stick/tabl et rgnt auto w/o microscopy Barbara Quarles RETAIL SALES SPECIALIST.HIGH SCHOOL LIBRARY MEDIA SPECIALIST Work Phone: Start: 01-14-2022 Radiologic examinati on pelvis 1/2 views Hardik Spain DO Work Phone: Start: 07-18-2021 Adult depression scr eening assessment Robert Ardon MD Work Phone: Start: 03-18-2021 Radex hips bilateral with pelvis minimum 5 views Gerardo LOUIS-C Work Phone: Start: 06-07-2017 Lipid 1996 panel - S alma delia or Plasma Mathew Cobian MD Work Phone: Plan of Treatment Date Care Activity Detail Author Start: 05-03-2029 Prostate specific antigen measurement Prostate Cancer Screening Discussion [facility] Start: 09-25-2028 Lipid panel LIPID SCREENING [facility] Start: 09-12-2028 Prostate specific antigen measurement Prostate Cancer Screening Discussion [facility] Start: 08-28-2028 DTaP/Tdap/Td Vaccine s (3 - Td or Tdap) DTaP/Tdap/Td Vaccines (3 - Td or Tdap) [facility] Start: 08-28-2028 Tetanus vaccination TETANUS [facility] Start: 08-28-2028 Urine microalbumin profile [facility] Start: 01-18-2028 Diabetes Screening Diabetes Screenin g [facility] Start: 12-15-2027 PROSTATE CANCER SCREENING DISCUSSION PROSTATE CANCER SCREENING DISCUSSION [facility] Start: 12-15-2027 Prostate specific antigen measurement Prostate Cancer Screening Discussion [facility] Start: 07-12-2027 Diabetes Screening Diabetes Screenin g [facility] Start: 2027 RSV Immunization age d 60 or older (1 - 1-dose 60+ series) RSV Immunization aged 60 or older (1 - 1-dose 60+ series) [facility] Start: 04-18-2027 PROSTATE CANCER SCREENING DISCUSSION PROSTATE CANCER SCREENING DISCUSSION [facility] [facility] Start: 03-12-2027 Diabetes Screening Diabetes Screenin g [facility] Start: 12-13-2026 Diabetes Screening Diabetes Screenin g [facility] Start: 10-04-2026 Diabetes Screening Diabetes Screenin g [facility] Start: 09-14-2026 Diabetes Screening Diabetes Screenin g [facility] Start: 07-13-2026 Diabetes Screening Diabetes Screenin g [facility] Start: 03-28-2026 Annual PCP Team [employer] reina Disease Visit Annual PCP Team Chronic Disease Visit [facility] Start: 03-18-2026 Annual PCP Team [employer] Superintendent reina Disease Visit Annual PCP Team Chronic Disease Visit [facility] Start: 01-28-2026 Annual PCP Team [employer] Mill Superintendent reina Disease Visit Annual PCP Team Chronic Disease Visit [facility] Start: 01-17-2026 Annual PCP Team [employer] Superintendent reina Disease Visit Annual PCP Team Chronic Disease Visit [facility] Start: 01-14-2026 Annual PCP Team Seed Mill Superintendent reina Disease Visit Annual PCP Team Chronic Disease Visit [facility] Start: 12-14-2025 DIABETES SCREEN DIABETES SCREEN [facility] Start: 12-14-2025 [facility]: 12-13-2025 Annual PCP Team [employer] Superintendent reina Disease Visit Annual PCP Team Chronic Disease Visit [facility] Start: 07-25-2025 Annual PCP Team [employer] Superintendent reina Disease Visit Annual PCP Team Chronic Disease Visit [facility] Start: 07-12-2025 Annual PCP Team [employer] Superintendent reina Disease Visit Annual PCP Team Chronic Disease Visit [facility] Start: 05-20-2025 End: 05-20-2025 Patient encounter procedure 05/20/2025 11:00 AM EDT Office Visit Urology [address] [address] Raphael Calderon Jr., MD [address] [place] [address] 6 month follow up Urology Comment on above: 6 month follow up Start: 05-13-2025 Screening for malign ant neoplasm of colon [facility] Start: 05-03-2025 Annual PCP Team [employer] Superintendent reina Disease Visit Annual PCP Team Chronic Disease Visit [facility] Start: 04-30-2025 Annual PCP Team [employer] Superintendent reina Disease Visit Annual PCP Team Chronic Disease Visit [facility] Start: 04-17-2025 Annual PCP Team [employer] Superintendent reina Disease Visit Annual PCP Team Chronic Disease Visit [facility] Start: 04-12-2025 Annual PCP Team [employer] Superintendent reina Disease Visit Annual PCP Team Chronic Disease Visit [facility] Start: 04-07-2025 [facility] Start: 03-31-2025 End: 03-31-2025 Patient encounter procedure 03/31/2025 12:00 PM EDT Office Visit Family [address] [phone] Ino Esqueda, RETAIL SALES SPECIALIST.HIGH SCHOOL LIBRARY MEDIA SPECIALIST [address] [place] [address] [phone] ear lavage [facility] Comment on above: ear lavage Start: 03-25-2025 End: 03-25-2025 Patient encounter procedure 03/25/2025 1:00 PM EDT Office Visit Family [facility] [address] [place] [address] [phone] Ino Esqueda, RETAIL SALES SPECIALIST.HIGH SCHOOL LIBRARY MEDIA SPECIALIST [address] [place] [address] [phone] ear lavage [facility] Comment on above: ear lavage Start: 03-24-2025 Influenza vaccination [facility] Start: 03-18-2025 End: 03-18-2025 Patient encounter procedure 03/18/2025 12:00 PM EDT Office Visit Family [address] [phone] Ino Esqueda APRN.HIGH SCHOOL LIBRARY MEDIA SPECIALIST [address] [place] [address] follow up on CPAP usage [facility] Comment on above: follow up on CPAP us age Start: 03-15-2025 Annual PCP Team [employer] Superintendent reina Disease Visit Annual PCP Team Chronic Disease Visit [facility] Start: 01-29-2025 [facility] Start: 01-23-2025 End: 01-23-2025 Patient encounter procedure 01/23/2025 10:00 AM EDT Office Visit General Surgery [address] [place] [place], [place] [phone] Jennifer Galicia APRN.HIGH SCHOOL LIBRARY MEDIA SPECIALIST [address] [facility] [place] [address] diverticulitis f/u see TE per nurse General Surgery Comment on above: diverticulitis f/u s ee TE per nurse Start: 01-21-2025 End: 01-21-2025 Patient encounter procedure [facility] Jose Miguel Mcneil Comment on above: 6 month follow up Fungal infection of toenail [B35.1] Start: 01-21-2025 [facility] Start: 01-20-2025 Influenza vaccination Influenza Vacc ine (#1) [facility] Comment on above: Postponed from 03/24 (Declined at this time) Start: 01-17-2025 End: 04-18-2025 Cobalamin (Vitamin B12) [Mass/volume] in Serum or Plasma [facility] Comment on above: Expected: 01/17/2025 , Expires: 04/18/2025 Start: 01-17-2025 End: 04-18-2025 Pyridoxine [Mass/volume] in Serum or Plasma [facility] Comment on above: Expected: 01/17/2025 , Expires: 04/18/2025 Start: 01-17-2025 End: 04-18-2025 Riboflavin [Moles/volume] in Serum or Plasma [facility] Comment on above: Expected: 01/17/2025 , Expires: 04/18/2025 Start: 01-17-2025 End: 04-18-2025 VITAMIN B1 (THIAMINE), WHOLE BLOOD [facility] Work Phone: Comment on above: Expected: 01/17/2025 , Expires: 04/18/2025 Start: 01-17-2025 End: 01-17-2025 Patient encounter procedure 01/17/2025 10:20 AM EDT Office Visit [facility] [address] [place] [address] [phone] Ino Esqueda APRN.HIGH SCHOOL LIBRARY MEDIA SPECIALIST [address] [place] [address] [phone] 3 day follow up [facility] Comment on above: 3 day follow up Start: 01-14-2025 End: 01-14-2025 Patient encounter procedure 01/14/2025 10:20 AM EDT Office Visit [facility] [address] [place], [place] [phone] Ino Esqueda APRN.HIGH SCHOOL LIBRARY MEDIA SPECIALIST [address] [place], [place] [phone] skin tags,allergies [facility] Comment on above: skin tags,allergies Start: 12-13-2024 Annual PCP Team [employer] Superintendent reina Disease Visit Annual PCP Team Chronic Disease Visit [facility] Start: 11-05-2024 [facility] Start: 10-28-2024 End: 10-28-2024 Patient encounter procedure 10/28/2024 10:20 AM EDT Appointment [facility] [address] [place] [address] Prostate cancer (HCC) [C61] [facility] Comment on above: Prostate cancer (HCC ) [C61] Start: 10-16-2024 Annual PCP Team [employer] Superintendent reina Disease Visit Annual PCP Team Chronic Disease Visit [facility] Start: 10-16-2024 Covid-19 Vaccine () Covid-19 Vaccine () [facility] Comment on above: Postponed from 03/24 (Declined at this time) Start: 09-14-2024 Annual PCP Team [employer] Superintendent reina Disease Visit Annual PCP Team Chronic Disease Visit [facility] Start: 09-12-2024 End: 12-12-2024 Prostate specific Ag [Mass/volume] in Serum or Plasma PROSTATE-SPECIFIC ANTIGEN DIAGNOSTIC Lab Routine Prostate cancer (HCC) Expected: 09/12/2024, Expires: 12/12/2024 [facility] Comment on above: Expected: 09/12/2024 , Expires: 12/12/2024 Start: 09-10-2024 End: 09-10-2024 Patient encounter procedure 09/10/2024 11:15 AM EST Office Visit Urology [address] [phone] Raphael Calderon Jr., MD [address] [place] [address] 6 mth follow up to scan Urology Comment on above: 6 mth follow up to s can Start: 08-29-2024 End: 11-28-2024 Thyrotropin [Units/volume] in Serum or Plasma THYROID STIMULATING HORMONE Lab Routine Hypothyroidism, unspecified type Expected: 08/29/2024, Expires: 11/28/2024 [facility] Work Phone: Comment on above: Expected: 08/29/2024 , Expires: 11/28/2024 Start: 08-26-2024 End: 08-26-2024 Patient encounter procedure 08/26/2024 10:30 AM EST Office Visit Orthopaedics [address] [place] [address] Tammie Walters PA-C [address] [place], [place] [phone] Follow up Orthopaedics Comment on above: Follow up Start: 08-15-2024 Annual PCP Team [employer] Superintendent reina Disease Visit Annual PCP Team Chronic Disease Visit [facility] Start: 07-29-2024 End: 07-29-2024 Patient encounter procedure 07/29/2024 3:30 PM EST Office Visit Orthopaedics [address] [place] [address] Tammie Walters PA-C [address] [place] [address] Right fibula fracture - [facility] ED Orthopaedics Comment on above: Right fibula fractur e - [facility] ED Start: 07-29-2024 DIABETES SCREEN DIABETES SCREEN [facility] Start: 07-29-2024 End: 07-29-2024 Patient encounter procedure 07/29/2024 10:20 AM EST Appointment [facility] [place] [address] Prostate cancer (HCC) [C61] [facility] Comment on above: Prostate cancer (HCC ) [C61] Start: 07-25-2024 End: 07-25-2024 Patient encounter procedure 07/25/2024 10:00 AM EST Office Visit [facility] [place] [address] [place] [address] Mathew Cobian MD [address] [place], [place] [phone] [facility] ER f/u closed fx of fibula proximal right. 07-22-24 [facility] [place] Comment on above: [facility] ER f/u closed fx of fibula proximal right. 07-22-24 Start: 07-24-2024 Medicare Advantage Annual Wellness Visit Medicare Advantage Annual Wellness Visit [facility] Start: 07-22-2024 [facility] Start: 07-12-2024 End: 07-12-2024 Patient encounter procedure 07/12/2024 11:00 AM EST Office Visit [facility] [place] [address] [place] [address] Brian Ahmadi APRN.HIGH SCHOOL LIBRARY MEDIA SPECIALIST [address] [place], [place] [phone] 3 month follow up [facility] Comment on above: 3 month follow up Start: 07-07-2024 End: 10-06-2024 Basic metabolic 2000 panel - Serum or Plasma BASIC METABOLIC PANEL Lab Routine Hypothyroidism, unspecified type Expected: 07/07/2024 (Approximate), Expires: 10/06/2024 [facility] Comment on above: Expected: 07/07/2024 (Approximate), Expires: 10/06/2024 Start: 07-07-2024 End: 10-06-2024 Thyrotropin [Units/volume] in Serum or Plasma THYROID STIMULATING HORMONE Lab Routine Hypothyroidism, unspecified type Expected: 07/07/2024 (Approximate), Expires: 10/06/2024 [facility] Work Phone: Comment on above: Expected: 07/07/2024 (Approximate), Expires: 10/06/2024 Start: 06-03-2024 End: 06-03-2024 ambulatory 06/03/2024 3:00 PM [facility] Neurology [address] [phone] Devi Cisse MD [address] [place], [place] [phone] memory change Neurology Comment on above: memory change Start: 06-03-2024 End: 09-02-2024 Cobalamin (Vitamin B12) [Mass/volume] in Serum or Plasma VITAMIN B12 Lab Routine Confusion Expected: 06/03/2024, Expires: 09/02/2024 [facility] Comment on above: Expected: 06/03/2024 , Expires: 09/02/2024 Start: 06-03-2024 End: 09-02-2024 Folate [Mass/volume] in Serum or Plasma FOLATE, SERUM Lab Routine Confusion Expected: 06/03/2024, Expires: 09/02/2024 [facility] Comment on above: Expected: 06/03/2024 , Expires: 09/02/2024 Start: 06-03-2024 End: 09-02-2024 Magnesium [Mass/volume] in Serum or Plasma MAGNESIUM Lab Routine Confusion Expected: 06/03/2024, Expires: 09/02/2024 [facility] Comment on above: Expected: 06/03/2024 , Expires: 09/02/2024 Start: 06-03-2024 End: 09-02-2024 Methylmalonate [Moles/volume] in Serum or Plasma METHYLMALONIC ACID Lab Routine Confusion Expected: 06/03/2024, Expires: 09/02/2024 [facility] Comment on above: Expected: 06/03/2024 , Expires: 09/02/2024 Start: 06-03-2024 End: 09-02-2024 Thyrotropin [Units/volume] in Serum or Plasma THYROID STIMULATING HORMONE Lab Routine Confusion Expected: 06/03/2024, Expires: 09/02/2024 [facility] Comment on above: Expected: 06/03/2024 , Expires: 09/02/2024 Start: 05-22-2024 End: 05-22-2024 Patient encounter procedure 05/22/2024 11:15 AM EDT Office Visit General Surgery [address] [facility] [place], [place] [phone] Gilson Bar, DO [address] [place] [address] f/u colonoscopy General Surgery Comment on above: f/u colonoscopy Start: 05-13-2024 End: 05-13-2024 Patient encounter procedure 05/13/2024 8:15 AM EDT Appointment [facility] Endoscopy [address] [place] [address] Gilson Bar, DO [address] [place] [address] Yuko Silva APRN.STRIPPER AND OPAQUER APPRENTICE [address] [place] [address] [place] [address] [facility] [place] [address] to be admitted the day prior per colon [facility] Endoscopy Comment on above: to be admitted the d ay prior per colon Start: 05-08-2024 End: 05-08-2024 Patient encounter procedure 05/08/2024 1:00 PM EDT Office Visit General Surgery [address] [place], [place] [phone] Gilson Bar, DO [address] [place], [place] [phone] Diverticulitis [K57.92] General Surgery Comment on above: Diverticulitis [K57. 92] Start: 05-03-2024 End: 05-03-2024 Patient encounter procedure 05/03/2024 10:40 AM EDT Office Visit Family [facility] [place] [address] [place] [address] Brian Ahmadi APRN.HIGH SCHOOL LIBRARY MEDIA SPECIALIST [address] [facility] [place], [place] [phone] Follow up [facility] Comment on above: Follow up Start: 05-02-2024 End: 08-01-2024 Prostate specific Ag [Mass/volume] in Serum or Plasma PROSTATE-SPECIFIC ANTIGEN DIAGNOSTIC Lab Routine Prostate cancer (HCC) Expected: 05/02/2024, Expires: 08/01/2024 [facility] Work Phone: Comment on above: Expected: 05/02/2024 , Expires: 08/01/2024 Start: 04-24-2024 End: 04-24-2024 ambulatory 04/24/2024 9:00 AM EDT [facility] Neurology [address] [phone] Devi Cisse MD [address] [place], [place] [phone] Memory changes [R41.3] Neurology Comment on above: Memory changes [R41. 3] Start: 04-24-2024 End: 04-24-2024 Patient encounter procedure 04/24/2024 9:00 AM EDT Office Visit Neurology [address] [phone] Devi Cisse MD [address] [place], [place] [phone] Memory changes [R41.3] Neurology Comment on above: Memory changes [R41. 3] Start: 04-22-2024 End: 04-22-2024 Patient encounter procedure 04/22/2024 10:45 AM EDT Appointment Rad[facility] [address] [facility] [place], [place] [address] Neck mass [R22.1] Radiology Comment on above: Neck mass [R22.1] Start: 04-12-2024 End: 07-12-2024 Thyrotropin [Units/volume] in Serum or Plasma THYROID STIMULATING HORMONE Lab Routine Hypothyroidism, unspecified type Expected: 04/12/2024 (Approximate), Expires: 07/12/2024 [facility] Work Phone: Comment on above: Expected: 04/12/2024 (Approximate), Expires: 07/12/2024 Start: 04-12-2024 End: 04-12-2024 Patient encounter procedure 04/12/2024 10:40 AM EDT Office Visit Family [facility] [address] [place], [place] [phone] Brian Ahmadi, RETAIL SALES SPECIALIST.HIGH SCHOOL LIBRARY MEDIA SPECIALIST [address] [place], [place] [phone] 4 week follow up [facility] Comment on above: 4 week follow up Start: 03-24-2024 Covid-19 Vaccine ( season) Covid-19 Vaccine ( season) [facility] Start: 03-24-2024 Covid-19 Vaccine ( season) Covid-19 Vaccine ( season) [facility] Start: 03-24-2024 Influenza vaccination [facility] Start: 03-15-2024 End: 03-15-2024 Patient encounter procedure 03/15/2024 10:20 AM EDT Office Visit Family Medicine [place] [address] [place] [address] Brian Ahmadi, RETAIL SALES SPECIALIST.HIGH SCHOOL LIBRARY MEDIA SPECIALIST [address] [place], [place] [phone] Follow up for TSH Lab [facility] [place] Comment on above: Follow up for TSH La b Start: 03-12-2024 End: 03-12-2024 Patient encounter procedure 03/12/2024 11:30 AM EDT Office Visit Urology [address] [address] Raphael Calderon Jr., MD [address] [place] [address] 6 mth follow up Urology Comment on above: 6 mth follow up Start: 01-21-2024 Influenza vaccination Influenza Vacc ine (#1) [facility] Comment on above: Postponed from 03/24 (Declined at this time) Start: 12-21-2023 ANNUAL PCP TEAM CELL GENETICIST REINA DISEASE VISIT ANNUAL PCP TEAM CHRONIC DISEASE VISIT [facility] Start: 12-14-2023 End: 03-14-2024 VITAMIN B1 (THIAMINE), WHOLE BLOOD [facility] Work Phone: Comment on above: Expected: 12/14/2023 , Expires: 03/14/2024 Start: 10-18-2023 End: 10-18-2023 Patient encounter procedure 10/18/2023 8:00 AM EDT Office Visit [address] [phone] Cameron Taylor MD [address] [place] [phone] [facility] Start: 09-15-2023 End: 12-15-2023 Thyrotropin [Units/volume] in Serum or Plasma TSH BLD Lab Routine Hypothyroidism, unspecified type Expected: 09/15/2023, Expires: 12/15/2023 [facility] Work Phone: Comment on above: Expected: 09/15/2023 , Expires: 12/15/2023 Start: 09-15-2023 End: 12-15-2023 Thyroxine (T4) free [Mass/volume] in Serum or Plasma T4 FREE/FREE THYROX Lab Routine Hypothyroidism, unspecified type Expected: 09/15/2023, Expires: 12/15/2023 [facility] Work Phone: Comment on above: Expected: 09/15/2023 , Expires: 12/15/2023 Start: 09-14-2023 End: 12-14-2023 25-hydroxyvitamin D3 [Mass/volume] in Serum or Plasma [facility] Work Phone: Comment on above: Expected: 09/14/2023 , Expires: 12/14/2023 Start: 09-14-2023 End: 12-14-2023 Cobalamin (Vitamin B12) [Mass/volume] in Serum or Plasma [facility] Work Phone: Comment on above: Expected: 09/14/2023 , Expires: 12/14/2023 Start: 09-14-2023 End: 12-14-2023 Comprehensive metabolic 2000 panel - Serum or Plasma [facility] Work Phone: Comment on above: Expected: 09/14/2023 , Expires: 12/14/2023 Start: 09-14-2023 End: 12-14-2023 Folate [Mass/volume] in Serum or Plasma [facility] Work Phone: Comment on above: Expected: 09/14/2023 , Expires: 12/14/2023 Start: 09-14-2023 End: 12-14-2023 Thyrotropin [Units/volume] in Serum or Plasma [facility] Work Phone: Comment on above: Expected: 09/14/2023 , Expires: 12/14/2023 Start: 09-14-2023 End: 12-14-2023 Thyroxine (T4) free [Mass/volume] in Serum or Plasma [facility] Work Phone: Comment on above: Expected: 09/14/2023 , Expires: 12/14/2023 Start: 07-24-2023 Depression Assessment Depression Ass essment [facility] Start: 06-07-2023 ANNUAL PCP TEAM CELL GENETICIST REINA DISEASE VISIT ANNUAL PCP TEAM CHRONIC DISEASE VISIT [facility] Start: 03-24-2023 COVID-19 VACCINE () COVID-19 VACCINE () [facility] Start: 03-24-2023 Covid-19 Vaccine () Covid-19 Vaccine () [facility] Start: 03-24-2023 Influenza vaccination [facility] Start: 02-19-2023 End: 04-21-2023 25-hydroxyvitamin D3 [Mass/volume] in Serum or Plasma VITAMIN D 25 HYDROXY Lab Routine Vitamin D deficiency Expected: 02/19/2023 (Approximate), Expires: 04/21/2023 [facility] Work Phone: Comment on above: Expected: 02/19/2023 (Approximate), Expires: 04/21/2023 Start: 02-19-2023 End: 04-21-2023 Thyrotropin [Units/volume] in Serum or Plasma TSH BLD Lab Routine Hypothyroidism, unspecified type Expected: 02/19/2023 (Approximate), Expires: 04/21/2023 [facility] Work Phone: Comment on above: Expected: 02/19/2023 (Approximate), Expires: 04/21/2023 Start: 01-20-2023 Influenza vaccination INFLUENZA (#1) [facility] Comment on above: Postponed from 03/24 (Declined at this time) Start: 11-14-2022 End: 01-14-2023 25-hydroxyvitamin D3 [Mass/volume] in Serum or Plasma VITAMIN D 25 HYDROXY Lab Routine Vitamin D deficiency Expected: 11/14/2022 (Approximate), Expires: 01/14/2023 [facility] Work Phone: Comment on above: Expected: 11/14/2022 (Approximate), Expires: 01/14/2023 Start: 11-14-2022 End: 01-14-2023 CBC panel - Blood by Automated count CBC Lab Routine Alcohol use GERD without esophagitis Expected: 11/14/2022 (Approximate), Expires: 01/14/2023 [facility] Work Phone: Comment on above: Expected: 11/14/2022 (Approximate), Expires: 01/14/2023 Start: 11-14-2022 End: 01-14-2023 Comprehensive metabolic 2000 panel - Serum or Plasma COMP METABOLIC PANEL Lab Routine Alcohol use Expected: 11/14/2022 (Approximate), Expires: 01/14/2023 [facility] Work Phone: Comment on above: Expected: 11/14/2022 (Approximate), Expires: 01/14/2023 Start: 11-14-2022 End: 01-14-2023 Thyrotropin [Units/volume] in Serum or Plasma TSH BLD Lab Routine Hypothyroidism, unspecified type Alcohol use Expected: 11/14/2022 (Approximate), Expires: 01/14/2023 [facility] Work Phone: Comment on above: Expected: 11/14/2022 (Approximate), Expires: 01/14/2023 Start: 11-14-2022 End: 01-14-2023 VITAMIN B1 (THIAMINE), WHOLE BLOOD VITAMIN B1 (THIAMINE), WHOLE BLOOD Lab Routine Alcohol use Expected: 11/14/2022 (Approximate), Expires: 01/14/2023 [facility] Work Phone: Comment on above: Expected: 11/14/2022 (Approximate), Expires: 01/14/2023 Start: 10-17-2022 End: 12-17-2022 Prostate specific Ag [Mass/volume] in Serum or Plasma PSA/PROSTSPECAG DIAG Lab Routine Malignant neoplasm of prostate (HCC) Expected: 10/17/2022, Expires: 12/17/2022 [facility] Work Phone: Comment on above: Expected: 10/17/2022 , Expires: 12/17/2022 Start: 09-10-2022 End: 11-10-2022 Thyrotropin [Units/volume] in Serum or Plasma TSH BLD Lab Routine Hypothyroidism, unspecified type Expected: 09/10/2022 (Approximate), Expires: 11/10/2022 [facility] Work Phone: Comment on above: Expected: 09/10/2022 (Approximate), Expires: 11/10/2022 Start: 07-24-2022 DEPRESSION ASSESSMENT DEPRESSION ASS ESSMENT [facility] Start: 07-18-2022 Adult depression screening assessment DEPRESSION SCREENING [facility] Start: 06-08-2022 Influenza vaccination LUNG CANCER SC REENING [facility] Start: 06-08-2022 Screening for malign ant neoplasm of lung Lung Cancer Screening [facility] Start: 06-07-2022 Lipid 1996 panel - S alma delia or Plasma Lipid Screening [facility] Start: 06-07-2022 Lipid panel Lipid Screening [facility] Start: 06-07-2022 LIPID SCREEN LIPID SCREEN [facility] Start: 04-16-2022 ANNUAL PCP TEAM CELL GENETICIST REINA DISEASE VISIT ANNUAL PCP TEAM CHRONIC DISEASE VISIT [facility] Start: 03-24-2022 Influenza vaccination [facility] Start: 10-28-2021 COVID-19 VACCINE (4 - Booster for Pfizer series) COVID-19 VACCINE (4 - Booster for Pfizer series) [facility] Start: 08-24-2021 COVID-19 VACCINE (4 - Booster for Pfizer series) COVID-19 VACCINE (4 - Booster for Pfizer series) [facility] Start: 08-24-2021 COVID-19 VACCINE (4 - Pfizer series) COVID-19 VACCINE (4 - Pfizer series) [facility] Start: 07-24-2021 DEPRESSION ASSESSMENT DEPRESSION ASS ESSMENT [facility] Start: 2017 Pneumococcal Vaccine : 50+ (1 of 1 - PCV) Pneumococcal Vaccine: 50+ (1 of 1 - PCV) [facility] Start: 2017 Prostate specific antigen measurement PROSTATE CANCER SCREENING DISCUSSION [facility] Start: 2017 SHINGRIX VACCINE (1 of 2) SHINGRIX VACCINE (1 of 2) [facility] Start: 2017 Zoster vaccine hzv l joselyn for subcutaneous use ZOSTER (SHINGLES) VACCINE (1 of 2) [facility] Start: 2017 Zoster Vaccines (1 of 2) Zoste r Vaccines (1 of 2) [facility] Start: 2012 COLOGUARD (FIT-DNA) COLOGUARD (FIT-D NA) [facility] Start: 2012 Colonoscopy COLONOSCOPY [facility] Start: 2012 COLORECTAL CANCER SCREENING COLORECTAL CANCER SCREENING [facility] Start: [address] COLONOGRAPHY [facility] Start: 2012 FECAL OCCULT BLOOD FECAL OCCULT BLOO D [facility] Start: 2012 Screening for malign ant neoplasm of colon [facility] [facility] Start: 2012 SIGMOIDOSCOPY SIGMOIDOSCOPY [facility] Start: 1986 Hepatitis B vaccination HEP B VACCINE (1 of 3 - 19+ 3-dose series) [facility] Start: 1986 Hepatitis B Vaccine (1 of 3 - 19+ 3-dose series) Hepatitis B Vaccine (1 of 3 - 19+ 3-dose series) [facility] Start: 1986 Hepatitis B Vaccines (1 of 3 - 19+ 3-dose series) Hepatitis B Vaccines (1 of 3 - 19+ 3-dose series) [facility] Start: 1986 SHINGRIX VACCINE (1 of 2) SHINGRIX VACCINE (1 of 2) [facility] Start: 1985 Hepatitis C screening Hepatitis C Sc reening [facility] Start: 1985 HIV SCREENING HIV SCREENING [facility] Start: 1985 HIV screening HIV Screening [facility] Start: 1982 HIV screening HIV SCREENING DISCUSSION [facility] Start: 1979 Depression Screening Depression Scre ening [facility] Start: 1973 PNEUMOCOCCAL (1 - PCV) PNEUMOCOCCAL (1 - PCV) [facility] Start: 1973 Pneumococcal vaccination [facility] Start: 1968 MMR Vaccines (1 of 1 - Standard series) MMR Vaccines (1 of 1 - Standard series) [facility] Start: 1967 HEPATITIS B (1 of 3 - 3-dose series) HEPATITIS B (1 of 3 - 3-dose series) [facility] Start: 1967 Hepatitis B Vaccine (1 of 3 - 3-dose series) Hepatitis B Vaccine (1 of 3 - 3-dose series) [facility] Start: 1967 Hepatitis C screening HEPATITI S C VIRUS SCREENING [facility] Start: 1967 HIV screening HIV Screening [facility] Start: 1967 Lipid panel Lipid Panel [facility] Start: 1967 Screening for malign ant neoplasm of colon [facility] Start: 1967 Thyroid stimulating hormone measurement TSH [facility] BACH SCREENING TEST BACH SCREENI NG TEST Procedures Routine Memory loss Ordered: 03/15/2024 [facility] Comment on above: Ordered: 03/15/2024 Bacteria identified in Urine by Culture URINE CULTURE Microbiology Routine Urinary frequency 04/12/2023 8:00 PM EDT [facility] Work Phone: Bacteria identified in Urine by Culture URINE CULTURE Microbiology Routine Pain in right testicle Right groin pain 11/01/2023 4:37 PM EDT [facility] Work Phone: End: 06-03-2025 EPIL EEG ROUTINE EPIL EEG ROUTINE NEUROLOGY Routine Confusion 1 Occurrences starting 06/03/2024 until 06/03/2025 [facility] Work Phone: Comment on above: 1 Occurrences starti ng 06/03/2024 until 06/03/2025 End: 05-08-2025 Flexible sigmoidoscopy study COLONOSCOPY DIAGNOSTIC Endoscopy Routine Diverticulitis Bloody stools 1 Occurrences starting 05/08/2024 until 05/08/2025 [facility] Work Phone: Comment on above: 1 Occurrences starti ng 05/08/2024 until 05/08/2025 End: 04-11-2025 MR Prostate WO and W contrast IV MRI PROSTATE WO/W IVCON Radiology Routine Prostate cancer (HCC) 1 Occurrences starting 03/12/2024 until 04/11/2025 [facility] Work Phone: Comment on above: 1 Occurrences starti ng 03/12/2024 until 04/11/2025 MR Prostate WO and W contrast IV MRI PROSTATE WO/W IVCON Radiology Routine Prostate cancer (HCC) 10/28/2024 11:31 AM EDT [facility] Work Phone: Patient Education [facility] Work Phone: Patient referral [facility] Work Phone: End: 02-13-2023 Radiologic examination pelvis 1/2 views XR PELVIS 1V AP Radiology Routine Abnormal x-ray of pelvis 1 Occurrences starting 01/14/2022 until 02/13/2023 [facility] Work Phone: Comment on above: 1 Occurrences starti ng 01/14/2022 until 02/13/2023 End: 09-26-2023 Standard ECG [facility] Comment on above: One Time for 1 Occur rences starting 09/26/2023 until 09/26/2023 End: 09-27-2023 Standard ECG [facility] Work Phone: Comment on above: One Time for 1 Occur rences starting 09/27/2023 until 09/27/2023 SURGICAL PATHOLOGY [facility] Work Phone: Comment on above: Release Upon Orderin g for 1 Occurrences starting 05/13/2024, 1 completed End: 05-17-2025 US Head and neck soft tissue US HEAD/NECK SOFT TISSUE OTHER Radiology Routine Neck mass 1 Occurrences starting 04/17/2024 until 05/17/2025 [facility] Work Phone: Comment on above: 1 Occurrences starti ng 04/17/2024 until 05/17/2025 XR Tibia and Fibula - right AP and Lateral XR TIBIA FIBULA 2V AP/LAT RIGHT Radiology Routine Other closed fracture of proximal end of right fibula, initial encounter 07/29/2024 4:28 PM EST [facility] Work Phone: End: 09-19-2025 XR Tibia and Fibula - right AP and Lateral XR TIBIA FIBULA 2V AP/LAT RIGHT Radiology Routine Other closed fracture of proximal end of right fibula, initial encounter 1 Occurrences starting 08/20/2024 until 09/19/2025 [facility] Work Phone: Comment on above: 1 Occurrences starti ng 08/20/2024 until 09/19/2025 [facility] Immunizations Immunization Date Immunization Notes Care Provider Michelle piña 04-30-2024 COVID-19 vaccine, ag e 12+ yr (PFIZER-BIONTECH COMIRNATY) Brian Ahmadi APRN.[employer] MEDIA SPECIALIST Work Phone: [facility] 10-27-2020 Covid (Pfizer) [facility] 10-06-2020 Covid (Pfizer) [facility] 08-28-2018 tetanus toxoid, reduced diphtheria toxoid, and acellular pertussis vaccine, adsorbed Robert Ardon MD Work Phone: [facility] Work Phone: 06-07-2017 influenza virus vaccine, unspecified formulation Mathew Cobian MD Work Phone: [facility] 06-25-2011 tetanus toxoid, reduced diphtheria toxoid, and acellular pertussis vaccine, adsorbed Robert Ardon MD Work Phone: [facility] Payers Date Payer Category Payer Medicare (Managed Care) [employer] [id number] 2024 Unknown [id number] 2024 Self-pay [id number] 2021 Medicaid [id number] 2021 Unknown 2021 Unknown [facility] HB ONLY x0000 2021-Present [id number] ATT[address] [facility] [address] Other x0000 [id number] 2021 Medicaid [employer] [facility] [id number] 2021-Present [phone] [address] [place] [id number] Medicaid [id number] 2021 Medicaid [id number] 2021 Medicaid [id number] 2020 Medicare MEDICARE MEDICAR E A AND B [id number] 2020-[facility] [[email or web address] [phone] [place] [address] Medicare [id number] 1992 Medicare [id number] 1992 Medicare [id number] 1967 Unknown [id number] 1967 Unknown [id number] 1967 Unknown [id number] Unknown [id number] Unknown [id number] Unknown [id number] Unknown [id number] Unknown [id number] Unknown [id number] Unknown [id number] Social History Date Type Detail Facility Start: 01-14-2022 End: 01-29-2025 Tobacco smoking status NHIS Smokes tobacco daily [facility] Start: 07-29-1993 End: 07-30-2023 History of tobacco use Cigarette Smoker [facility] Start: 09-30-2021 End: 01-20-2025 Alcohol intake Current drinker of alcohol (finding) [facility] Start: 05-19-2021 End: 12-20-2022 History SDOH Alcohol Frequency 4 [facility] Start: 05-19-2021 End: 12-20-2022 History SDOH Alcohol Std Drinks 2 [facility] Start: 09-22-2021 History SDOH Alcohol Comment 3/4 beers daily sometimes [facility] Start: 05-19-2021 End: 12-20-2022 History SDOH Social Connections Phone 5 [facility] Start: 05-19-2021 End: 06-07-2022 History SDOH Social Connections Get Together 98 [facility] Start: 05-19-2021 End: 06-07-2022 History SDOH Social Connections Synagogue 1 [facility] Start: 05-19-2021 End: 12-20-2022 History SDOH Social Connections Living 7 [facility] Start: 05-19-2021 End: 12-20-2022 History SDOH Physical Activity DPW 0 [facility] Start: 05-19-2021 End: 06-07-2022 History SDOH Stress 3 [facility] Start: 02-21-2020 Education 21 [facility] Start: 04-16-2021 Tobacco Comment couple per day [facility] Start: 1965 Sex Assigned At Male [facility] Start: 02-15-2021 End: 06-07-2022 Exposure to SARS-CoV-2 (event) Not sure [facility] Work Phone: Start: 01-14-2022 End: 06-07-2022 Tobacco Comment Pt has cut back to 1/4 pack daily. [facility] Start: 02-27-2022 End: 02-28-2022 Tobacco smoking status MAIS Unknown if ever smoked [facility] Start: 11-02-2018 Occasional [facility] Start: 11-02-2018 None [facility] Start: 11-02-2018 With Family [facility] Start: 12-04-2020 Cigarettes [facility] Start: 01-14-2022 End: 07-12-2024 Cigarettes smoked current (pack per day) - Reported 1 [facility] Start: 01-14-2022 End: 03-12-2024 Tobacco use and exposure Smokeless tobacco non-user [facility] Start: 12-20-2022 End: 07-12-2024 Social connection and isolation panel [facility] Do you belong to any clubs or organizations such as cheondoism groups, unions, fraternal or athletic groups, or school groups? No [facility] Are you now , , , , never or living with a partner? Never [facility] Start: 06-24-2012 How often to you have a drink containing alcohol? Patient refused [facility] How many standard dr inks containing alcohol do you have on a typical day? 3 or 4 [facility] Do you feel stress - tense, restless, nervous, or anxious, or unable to sleep at night because your mind is troubled all the time - these days [OSQ] Rather much [facility] (I/We) worried wheth er (my/our) food would run out before (I/we) got money to buy more. Never true [facility] Start: 06-20-2021 Gender identity Identifies as male gender (finding) [facility] Start: 06-20-2021 Sexual orientation Heterosexual (finding) [facility] Start: 09-12-2023 End: 04-06-2025 Tobacco smoking status NHIS Ex-smoker [facility] Start: 07-29-1993 End: 07-30-2023 History of tobacco use Current smoker [facility] Start: 09-26-2023 Alcohol Comment 3-4 drinks/ week [facility] Start: 1965 Sex assigned at Not on file [facility] Start: 10-17-2023 Tobacco Comment Pt has cut back to 1/4 pack daily.Vaps off and on [facility] How often to you hav e a drink containing alcohol? 2-3 time sa week [facility] How often do you hav e 6 or more drinks on 1 occasion? Less than monthly [facility] How hard is it for y ou to pay for the very basics like food, housing, medical care, and heating Not very hard [facility] Do you feel stress - tense, restless, nervous, or anxious, or unable to sleep at night because your mind is troubled all the time - these days [OSQ] Only a little [facility] Start: 04-11-2019 Tobacco Comment quit - 1 week [facility] How often to you hav e a drink containing alcohol? 2-4 times a month [facility] How often do you hav e 6 or more drinks on 1 occasion? Monthly [facility] Do you feel stress - tense, restless, nervous, or anxious, or unable to sleep at night because your mind is troubled all the time - these days [OSQ] To some extent [facility] Start: 05-08-2024 Alcohol Comment 3/4 beers per week [facility] Sexual Orientation Diane Hoda archer [facility] Start: 07-20-2024 End: 11-05-2024 Sex Male (finding) [facility] Functional Status Date Assessment Result Facility 07-20-2024 Functional Status Independent [facility] 07-20-2024 Functional Status Standard Safet y ID band on, Call device within reach, Bed in low position, Wheels locked, Bedside Cart Locked [facility] 05-13-2024 Are you deaf, or do you have serious difficulty hearing No 05/13/2024 4:51 PM Yuni Beckett, REBA No [facility] 05-13-2024 Do you have serious difficulty walking or climbing stairs No 05/13/2024 4:51 PM Yuni Beckett, REBA No [facility] 05-13-2024 Do you have difficul ty dressing or bathing No 05/13/2024 4:51 PM Yuni Beckett, REBA No [facility] 05-13-2024 Because of a physica l, mental, or emotional condition, do you have difficulty doing errands alone such as visiting a physician's office or shopping No 05/13/2024 4:51 PM Yuni Beckett, REBA No [facility] 10-27-2014 Are you blind, or do you have serious difficulty seeing, even when wearing glasses No 10/27/2014 4:20 PM EDT Maricarmen Leahy RN No [facility] Mental Status Date Assessment Result Facility 01-29-2025 Cognitive function Level Of Cons ciousness Awake;Alert;Appropriate;Fol lows Commands [facility] Work Phone: 01-20-2025 Cognitive function Level Of Cons ciousness Awake;Alert;Appropriate;Fol lows Commands [facility] Work Phone: 07-20-2024 Mental Status Orientation Oriented x 4 [facility] 07-20-2024 Mental Status [facility] 05-13-2024 Because of a physica l, mental, or emotional condition, do you have serious difficulty concentrating, remembering, or making decisions No 05/13/2024 4:51 PM EDT Yuni Santoyo RN No [facility] Clinical Notes 03-18-2021 to 04-07-2025 Telephone Encounter - Laura Whaley MA - 04/03/2025 9:41 AM EDTTelephone Encounter - Laura Whaley MA - 04/03/2025 9:41 AM EDTMargarita Mao Tech - 03/28/2025 11:10 AM EDT Note Date & Type Note Facility 04-07-2025 Discharge summary [facility] 04-03-2025 Telephone encounter Note Images from the original note were not included. Office received fax from [employer] asking up updated order on pressure for pt CPAP. Pt is using [employer] for his CPAP supplies. This has been faxed back to [employer] notifying them of this information. Laura Whaley MA [facility] 04-03-2025 Miscellaneous Notes Images from the original note were not included. Office received fax from [employer] asking up updated order on pressure for pt CPAP. Pt is using [employer] for his CPAP supplies. This has been faxed back to [employer] notifying them of this information. Laura Whaley MA documented in this encounter [facility] 03-28-2025 History of Presen t illness [...] PATIENT PRESENTS WITH AN IMPLANTABLE OR ATTACHED LEASE PICKER: No RADIOLOGY DEPARTMENT: General X-ray: Exam(s) Completed: Chest X-Ray PERIPHERAL IV DATA: Not applicable SIGNED BY: Artie Decker March 28, 2025 11:14 AM documented in this encounter [facility] 03-28-2025 Note HNO ID: [id number] Author: MARGARITA MAO Tech Service: ? Author Type: Shake Packer Type: Progress Notes Filed: 03/28/2025 11:15 Note [...] PATIENT PRESENTS WITH AN IMPLANTABLE OR ATTACHED LEASE PICKER: No RADIOLOGY DEPARTMENT: General X-ray: Exam(s) Completed: Chest X-Ray PERIPHERAL IV DATA: Not applicable SIGNED BY: Artie Decker March 28, 2025 11:14 AM [facility] 03-28-2025 Note HNO ID: [id number] Author: INO ESQUEDA APRN.H[employer] MEDIA SPECIALIST Service: ? Author Type: Nurse Practitioner Type: [...] of debrox 3 times weekly. Ino Esqueda APRN.H[employer] MEDIA SPECIALIST [1] Social History Tobacco Use Smoking status: [...] 3/4 beers per week Drug use: No [facility] 03-28-2025 History of Presen t illness [...] of debrox 3 times weekly. Ino Esqueda APRN.H[employer] MEDIA SPECIALIST [1] Social History Tobacco Use Smoking status: [...] Drug use: No documented in this encounter [facility] 03-28-2025 Telephone encounter Note Reason for Conversation Shortness of Breath Background Protocol recommends see provider in 4 hours. Pt scheduled today with Ino Esqueda MANAGER ACCESS at 1040 am. Care plan reviewed with [...] Additional Information on file. Protocols Used Breathing [id number] [facility] 03-28-2025 Miscellaneous Notes Reason for Conversation Shortness of Breath Background Protocol recommends see provider in 4 hours. Pt scheduled today with Ino Esqueda MANAGER ACCESS at 1040 am. Care plan reviewed with [...] Additional Information on file. Protocols Used Breathing [id number] documented in this encounter [facility] 03-28-2025 Telephone encounter Note Calling to triage Pt. Renard oL RN [facility] 03-28-2025 Miscellaneous Notes Calling to triage Pt. Renard Lo RN documented in this encounter [facility] 03-18-2025 Note HNO ID: [id number] Author: INO ESQUEDA APRN.H[employer] MEDIA SPECIALIST Service: ? Author Type: Nurse Practitioner Type: [...] with improved symptoms. Continue CPAP. Ino Esqueda, KALEB.HIGH SCHOOL LIBRARY MEDIA SPECIALIST [1] Social History Tobacco Use Smoking status: [...] 3/4 beers per week Drug use: No [facility] 03-18-2025 History of Presen t illness [...] with improved symptoms. Continue CPAP. Ino Esqueda APRN.H[employer] MEDIA SPECIALIST [1] Social History Tobacco Use Smoking status: [...] Drug use: No documented in this encounter [facility] 03-14-2025 Telephone encounter Note Pt scheduled with Ino Esqueda 03/18/25. Form placed on TAWANNA's desk. Laura Whaley MA [facility] 03-14-2025 Miscellaneous Notes Pt scheduled with Ino Esqueda 03/18/25. Form placed on MA's desk. Laura Whaley MA If he has no recent office visits for JODEE then he needs one to document his use of CPAP Mathew Cobian MD Pt should have appt to discuss JODEE. Virgilio requesting Office note within the last year [...] back with information. documented in this encounter [facility] 03-14-2025 Telephone encounter Note If he has no recent office visits for JODEE then he needs one to document his use of CPAP Mathew Cobian MD [facility] 03-14-2025 Telephone encounter Note Pt should have appt to discuss JODEE. Virgilio requesting Office note within the last year discussing use and benefits of PAP machine. No recent visits discussing his sleep apnea. Laura Whaley MA [facility] 03-14-2025 Telephone encounter Note Abhinav with [facility] is calling due to they just received a fax for an order for patients cpap and they are noting a pressure change form 8 to 7. They would just like to confirm that you want this change as patient as not aware for this. please review and advise and contact Abhinav back with information. [facility] 03-14-2025 Telephone encounter Note Office received fax from [employer] stating that they are unable to provide equipment for CPAP because pt is using [employer] for his JODEE supplies. Order sent to [facility]. Laura Whaley MA [facility] 03-14-2025 Miscellaneous Notes Office received fax from [employer] stating that they are unable to provide equipment for CPAP because pt is using [employer] for his JODEE supplies. Order sent to [facility]. Laura Whaley MA documented in this encounter [facility] 03-13-2025 Telephone encounter Note OK to refill as ordered Mathew Cobian MD [facility] 03-13-2025 Miscellaneous Notes OK to refill as ordered Mathew Cobian [...] should have an order for johana at [facility] but wants it at [facility] and is having trouble transferring it. Also, requesting new orders for CPAP supplies to be faxed to [facility] as current supplier doesn't accept [employer]. Lissa Rich RN March 13, 2025 12:13 PM documented in this encounter [facility] 03-13-2025 Telephone encounter Note The patient has been identified by [...] should have an order for johana at [facility] but wants it at [facility] and is having trouble transferring it. Also, requesting new orders for CPAP supplies to be faxed to [facility] as current supplier doesn't accept [employer]. Lissa Rich RN March 13, 2025 12:13 PM [facility] 02-27-2025 Note HNO ID: [id number] Author: KEISHA HEATH MA Service: ? Author Type: Schedule Checker Type: Progress Notes Filed: 02/27/2025 15:56 Note [...] or unnecessary to reach patient: Left message [employer] message sent HCC related Navigation Signature: Keisha Heath MA February 27, 2025 3:55 PM [facility] 02-27-2025 Note Patient Outreach (NE TNAV) [place] ([id number]) 1965 M Date Time Provider Department 02/27/25 [...] or unnecessary to reach patient: Left message [employer] message sent HCC related Navigation Signature: Keisha [...] Encounter Status:Closed by KEISHA HEATH on 02/27/25 [facility] 02-11-2025 Telephone encounter Note OK to refill as ordered Mathew Cobian MD [facility] 02-11-2025 Miscellaneous Notes OK to refill as ordered Mathew Cobian [...] 2025 11:59 AM documented in this encounter [facility] 02-11-2025 Telephone encounter Note The patient has been identified by [...] Rich RN February 11, 2025 11:59 AM [facility] 01-31-2025 Note HNO ID: [id number] Author: ?, ?, ? Service: ? Author Type: ? Type: Progress Notes Filed: 01/31/2025 14:21 Note Text: POPULATION HEALTH NAVIGATION OUTREACH Action/[facility] Support: Called pt to schedule an appt in Pain Management. No answer, lvm for pt to call [phone] for scheduling. Any agent can assist. Reason for Outreach Care Gap/HCC or Scheduling Wellness Visits Care Gaps due: N/A Patient Contacted: Unable or unnecessary to reach patient: Left message [employer] message sent Navigation Signature: Rochelle Woody January 31, 2025 2:20 PM [facility] 01-31-2025 History of Presen t illness Narrative POPULATION HEALTH NAVIGATION OUTREACH Action/[facility] Support: Called pt to schedule an appt in Pain Management. No answer, lvm for pt to call [phone] for scheduling. Any agent can assist. Reason for Outreach Care Gap/HCC or Scheduling Wellness Visits Care Gaps due: N/A Patient Contacted: Unable or unnecessary to reach patient: Left message [employer] message sent Navigation Signature: Rochelle Woody January 31, 2025 2:20 PM documented in this encounter [facility] 01-31-2025 Note Patient Outreach (JOAO TNAV) [place] ([id number]) 1965 M Date Time Provider Department 01/31/25 NO PCP (JULIANA) WES During your visit today, we recorded the following information about you: Rochelle Woody 01/31/2025 2:21 PM Signed POPULATION HEALTH NAVIGATION OUTREACH Action/[facility] Support: Called pt to schedule an appt in Pain Management. No answer, lvm for pt to call [phone] for scheduling. Any agent can assist. Reason for Outreach Care Gap/HCC or Scheduling Wellness Visits Care Gaps due: N/A Patient Contacted: Unable or unnecessary to reach patient: Left message Lightwire message sent Navigation Signature: Rochelle Woody January [...] Encounter Status:Closed by ROCHELLE WOODY on 01/31/25 [facility] 01-30-2025 Telephone encounter Note Pt called and is notified of providers messge. Pt voices understanding. Renard Lo RN [facility] 01-30-2025 Miscellaneous Notes Pt called and is notified of providers [...] Uma Jett RN documented in this encounter [facility] 01-30-2025 Telephone encounter Note Please let patient know it may take longer than 5 doses for symptoms to improve. [facility] 01-29-2025 Telephone encounter Note Patient calls and states that he has had 5 doses of the nystatin. Patient states that thrush is not getting any better. Patient has been taking ibuprofen and tylenol but has been taking more than recommended due to pain. Patient asking what else he can do? Please review and advise, Uma Jett RN [facility] 01-28-2025 Note HNO ID: [id number] Author: INO ESQUEDA APRN.CNP Service: ? Author Type: Nurse Practitioner [...] [place]STATIN 100,000 UNIT/ML ORAL SUSPENSION Ino Esqueda APRN.[facility] 01-28-2025 History of Presen t illness [...] NYSTATIN 100,000 UNIT/ML ORAL SUSPENSION Ino Esqueda APRN.[employer] MEDIA SPECIALIST documented in this encounter [facility] 01-27-2025 Note HNO ID: [id number] Author: MEGA LOJA PA-C Service: ? Author Type: Physician University Registrar Type: Progress Notes Filed: 01/27/2025 09:38 Note [...] paperwork and care plan are available in Lightwire. MDM Procedures [facility] 01-27-2025 History of Presen t illness [...] paperwork and care plan are available in [employer]t. MDM Procedures documented in this encounter [facility] 01-23-2025 Telephone encounter Note [employer] message sent to patient Margarita Ferrara MA [facility] 01-23-2025 Miscellaneous Notes [employer] message sent to patient Margarita Ferrara MA Please let patient know their labs are WNL. documented in this encounter [facility] 01-23-2025 Telephone encounter Note Please let patient know their labs are WNL. [facility] Work Phone: 01-21-2025 Radiology Diagnostic study note [facility] Imaging Services [address] [place], [place] [address] Brain/Head without Contrast MR#: [id number] Acct: [id number] Name: GOOD DE LUNA Rep #: [id number] : 1965 M 59 From: Paulina Nayak MD PCP: Dr. Mathew Cobian MD Status: RE G ER Study:Brain/Head without Contrast Date of Exa m: 01/21/25 Exam# [id number] Ordering Dr: Ramona Koch DO PROCEDURE: BRAIN/HEAD [...] IMPRESSION: No acute intracranial findings. Reading Location: [place] [address] CC: Dr. Mathew Cobian MD; Jj Koch DO ~ [place] Hand: Signed [facility] 01-17-2025 Telephone encounter Note Pt called and is notified of providers results and instructions. Pt voices understanding. Transferred to scheduled to set up appt with General Surgery. Renard Lo RN [facility] 01-17-2025 Miscellaneous Notes Pt called and is notified of providers [...] was just in to see Ino Esqueda MANAGER ACCESS today. He wanted to know what provider [...] fever. 10. : N/A Protocols used: Rectal Vskltrhc-AGQDZ-FE documented in this encounter [facility] 01-17-2025 Telephone encounter Note CBC is stable. Schedule with general surgery for repeat scope FRANCIA. Complete antibiotics that were given for diverticulitis. Proceed to ER if fever, abdominal pain, rectal bleeding with no BM. [facility] 01-17-2025 Telephone encounter Note Protocol recommends see provider in 24 hours. Pt was just in to see Ino Esqueda MANAGER ACCESS today. He wanted to know what provider [...] fever. 10. : N/A Protocols used: Rectal Slvrcbmi-KPCAL-US [facility] 01-17-2025 Note HNO ID: [id number] Author: INO ESQUEDA APRN.H[employer] S[employer]OL [employer] MEDIA SPECIALIST Service: ? Author Type: Nurse Practitioner Type: [...] 724.3, ICD10: G (more content not included)... [facility] 01-17-2025 History of Presen t illness [...] - CONSULT TO PAIN MGT Ino Esqueda APRN.H[employer]RARY MEDIA SPECIALIST documented in this encounter [facility] 01-14-2025 Telephone encounter Note Patient calling regarding medication question. Patient was seen in the office today for Diverticulitis and wants to know if he needs to take both antibiotics prescribed, Omnicef & Flagyl? He states that the last time he had Diverticulitis he was only prescribed one medication. Conferenced to [facility] forest fire equipment operator Chris at phone number ([phone]) for assistance. Informed patient that if unable to reach anyone in the office to call back tomorrow during normal business hours, verbalized understanding. [facility] 01-14-2025 Miscellaneous Notes Patient calling regarding medication question. Patient was seen in the office today for Diverticulitis and wants to know if he needs to take both antibiotics prescribed, Omnicef & Flagyl? He states that the last time he had Diverticulitis he was only prescribed one medication. Conferenced to [facility] forest fire equipment operator Chris at phone number ([phone]) for assistance. Informed patient that if unable to reach anyone in the office to call back tomorrow during normal business hours, verbalized understanding. documented in this encounter [facility] 01-14-2025 Note HNO ID: [id number] Author: INO ESQUEDA APRN.HIGH SCHOOL LIBRARY MEDIA SPECIALIST Service: ? Author Type: Nurse Practitioner Type: [...] L91.8 - CONSULT TO DERMATOLOGY Ino Esqueda APRN.[facility] 01-14-2025 History of Presen t illness [...] L91.8 - CONSULT TO DERMATOLOGY Ino Esqueda APRN.HIGH SCHOOL [employer]RARY MEDIA SPECIALIST documented in this encounter [facility] 01-10-2025 Telephone encounter Note Pt notified. Laura Whaley MA [facility] 01-10-2025 Miscellaneous Notes Pt notified. Laura Whaley MA OK to [...] different. Teena [place]ne[place]. documented in this encounter [facility] 01-10-2025 Telephone encounter Note OK to switch to Johana as ordered Mathew Cobian MD [facility] 01-10-2025 Telephone encounter Note Pt reports he is struggling with allergies. States he was tested and has allergies to everything. Reports no Shortness of Breath, no headache. Has drainage that bothers his ears. No ear pain. Reports the claritin really does not help with his allergies. Asking if pcp can order something different. Teena Mcneil. [facility] 12-25-2024 Note HNO ID: [id number] Author: GREYSON ELLSWORTH APRN.HIGH SCHOOL [employer]RARY MEDIA SPECIALIST Service: ? Author Type: Nurse Practitioner Type: [...] Claritin follow up with pcp. 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 OTC Medications were advised: Tylenol as needed [facility] 12-25-2024 History of Presen t illness [...] Claritin follow up with pcp. Greyson Ellsworth APRN.PATTIE History and Record Review Clinical information obtained [...] suggestive and no evidence on imaging - COLL[employer] BASTER JUMPBASTING Disposition The patient was discharged. OTC Medications were advised: Tylenol as needed documented in this encounter [facility] 12-25-2024 Telephone encounter Note Patient calls for sore throat and [...] difficulty breathing, headache, rash Protocols used: Sore Pznuzy-RERWA-VD [facility] 12-25-2024 Miscellaneous Notes Patient calls for sore throat and strep [...] difficulty breathing, headache, rash Protocols used: Sore Rzqzhf-NOSQL-OC documented in this encounter [facility] 12-13-2024 Note HNO ID: [id number] Author: MATHEW COBIAN MD Service: ? Author [...] Past Histories independently gathered by the clinical accounting support specialist and the remaining scribed note accurately describes [...] 13, 2024 11:42 AM. Laura Whaley MA [facility] 11-05-2024 Discharge summary [facility] 11-05-2024 Discharge summary Note Date/Time November 05, 2024 8:24pm [facility] Medical Records Department [address] [place] [address] Emergency Department Summary 11/05/24 MR#: [id number] Acct: [id number] Name: GOOD DE LUNA Rep #:[id number] : 1965 59 From: Salvatore Watkins MD PCP: Dr. Mathew Cobian MD Status:IA E ER Location: ED HPI History of [...] 6 months ago, and everything appeared normal. [facility] Medical History Alcohol abuse Anxiety History [...] 5 days if not improving. Print Language: Moroccan Disposition Disposition: Home, Self Care What to do if you have Problems For any increased pain, shortness of breath, bleeding, nausea or vomiting, chestpain, or any unexpected problems, contact your Primary Care Provider. Call [facility] ([phone]) or report to the closest Emergency Room. Call 911 if necessary. 11/05/242023 <Electronically signed by Salvatore Watkins MD> Cosigner Signature (if applicable): CC: Dr. Mathew Cobian MD ~ Signed [facility] Work Phone: 1(798) 393-150504-15-2025 Hospital Discharge instructions Additional Instructions Antibiotics as directed. Return with fever, increased pain or swelling of hard palate, new or worsening symptoms. Follow-up with ENT or a dentist in the next 3 to 5 days if not improving.[facility] Work Phone: 1(957) 199-288704-11-2025 Telephone encounter Note* Telephone Encounter - Juju Alcala MA - 11/01/2024 8:20 AM EDT Left message to call office to advise patient of below. Juju Alcala MA [facility]04-11-2025 Miscellaneous Notes* Telephone Encounter - Juju [...] Good Fu 6 months [facility] Telephone encounter Note * Telephone Encounter - Renard Farias MA - 10/31/2024 12:36 PM EDT Left message on phone to return call to office. Renard Farias MA Per : Raphael Calderon Jr., MD Mri prostate shows no lesions Good Fu 6 months [facility]04-07-2025 History of Present illness Narrative* Yanet [...] PATIENT PRESENTS WITH AN IMPLANTABLE OR ATTACHED LEASE PICKER: No ALLERGIES: Reviewed and unchanged CONTRAST ALLERGY: NO. EXAM: MRI - CONTRAST TYPE: GROUP II PERIPHERAL IV DATA: Inpatient - refer to [facility] documentation RADIOLOGY DEPARTMENT: MR; Exam(s) Completed: Body: Prostate SIGNATURE: RT Amanda(Maria Del Rosario) PATIENT NAME: Good De Luna DATE: October 28, 2024 TIME: 11:05 AM documented in [facility]04-[facility]-2025 NoteHNO ID: [id number] Author: YANET TONG RT (R) Service: Radiology [...] PATIENT PRESENTS WITH AN IMPLANTABLE OR ATTACHED LEASE PICKER: No ALLERGIES: Reviewed and unchanged CONTRAST ALLERGY: NO. EXAM: MRI - CONTRAST TYPE: GROUP II PERIPHERAL IV DATA: Inpatient - refer to [facility] documentation RADIOLOGY DEPARTMENT: MR; Exam(s) Completed: Body: Prostate SIGNATURE: RT Amanda(Maria Del Rosario) PATIENT NAME: Good De Luna DATE: October 28, 2024 TIME: 11:05 [facility]02-18-2025 Telephone encounter Note* Telephone Encounter - Bibi Arnett - 09/10/2024 10:57 AM EST Nurse Mcgovern spoke to pt and he is scheduled for an MRI and will make a new follow up. Pt is in agreement with this. [facility]02-18-2025 Miscellaneous Notes* Telephone Encounter - Bibi [...] on transport. Thank you. documented in [facility]02-[facility]25 Telephone encounter Note * Telephone Encounter - Bibi Arnett - 09/10/2024 9:41 AM EST Pt can't make his 11:10 appt today due to loss of transportation, his aide is his daughter and her children are sick. Pt is asking if there is any way he can have a virtual visit due to his immobility and dependence on transport. Thank you. [facility]02-03-2025 NoteHNO ID: [id number] Author: TAMMIE WALTERS PA-C Service: ? Author Type: Physician University Registrar Type: Progress Notes Filed: 08/26/2024 14:11 Note Text: Tammie Walters PA-C Department of Orthopaedics Orthopaedics [address] [place] [address] Dept: [phone] Dept August 26, 2024 CHIEF COMPLAINT: Established [...] No ecchymosis is noted. Imaging: See Epic MrLinus De Luna was advised as to contrast [...] allergies. This note was partially generated using Dragon voice recognition system, and there may be some incorrect words, spellings, and punctuation that were not noted in checking the note before saving. [facility] History of Present illness Narrative* Tammie Walters PA-C - 08/26/2024 2:08 PM EST Tammie Walters PA-C Department of Orthopaedics Orthopaedics [address] [facility] [address] Dept: [phone] Dept August 26, 2024 CHIEF COMPLAINT: Established [...] allergies. This note was partially generated using [employer] voice recognition system, and there may be some incorrect words, spellings, and punctuation that were not noted in checking the note before saving. Tammie Walters PA-C * Keisha Ruggiero MA - 08/26/2024 11:03 AM EST AMB ROOMING INTAKE FLOWSHEET DATA Pain Pain Level: 4 Pain Location: Leg-Right Description: Aching Duration Amount of Time: (ongoing) Frequency: Continuous Intervention/Comfort measure: Other: See comment (none) Patient here today for 5 weeks 2 days post fracture right fibula. New x-ray today. documented in [facility]-2025 NoteHNO ID: [id number] Author: KEISHA RUGGIERO MA Service: ? Author Type: Schedule Checker Type: Progress Notes Filed: 08/26/2024 14:11 Note Text: AMB ROOMING INTAKE FLOWSHEET DATA Pain Pain Level: 4 Pain Location: Leg-Right Description: Aching Duration Amount of Time: (ongoing) Frequency: Continuous Intervention/Comfort measure: Other: See comment (none) Patient here today for 5 weeks 2 days post fracture right fibula. [facility] x-[facility] today.[facility] History of Present illness Narrative * [...] PATIENT PRESENTS WITH AN IMPLANTABLE OR ATTACHED LEASE PICKER: No RADIOLOGY DEPARTMENT: General X-ray: Exam(s) Completed: Lower Extremity X- Ray(s): Tibia Fibula, Right PERIPHERAL IV DATA: Not applicable SIGNED BY: Artie Oconnor August 26, 2024 10:41 AM documented in this encounterShel[facility] Hospital02-03-2025 NoteHNO ID: [id number] Author: SANTINO BARCLAY Tech Service: ? Author [...] PATIENT PRESENTS WITH AN IMPLANTABLE OR ATTACHED LEASE PICKER: No RADIOLOGY DEPARTMENT: General X-ray: Exam(s) Completed: Lower Extremity X-Ray(s): Tibia Fibula, Right PERIPHERAL IV DATA: Not applicable SIGNED BY: Artie Oconnor August 26, 2024 10:41 [facility]01-14-2025 Telephone encounter Note* Telephone Encounter - Rola Riojas LPN - 08/06/2024 2:25 PM EST Patient notified. [facility]01-14-2025 Miscellaneous Notes* Telephone Encounter - Rola [...] by mouth once daily. Brian Ahmadi APRN.PATTIE * Telephone Encounter - Renard Lo RN [...] 06, 2024 2:14 PM documented in this encounterShel[facility]01-[facility]-2025 Telephone encounter Note * Telephone Encounter - Brian Ahmadi APRN.CNP - 08/06/2024 2:19 PM EST Please let the patient know that I have sent. The following approved medication requests have been transmitted electronically. Requested Prescriptions Pending Prescriptions Disp Refills citalopram (CELEXA) 40 mg tablet 90 tablet 3 Sig: Take 1 tablet by mouth once daily. Brian Ahmadi APRN.PATTIE [facility]01-14-2025 Telephone encounter Note* Telephone Encounter - [...] Lo RN August 06, 2024 2:14 PM [facility]01-06-2025 NoteHNO ID: [id number] Author: TAMMIE WALTERS PA-C Service: ? Author Type: Physician University Registrar Type: Progress Notes Filed: 08/02/2024 08:23 Note Text: Tammie Walters PA-C Department of Orthopaedics Orthopaedics [address] [place] [address] Dept: [phone] Dept July 29, 2024 CHIEF COMPLAINT: New [...] mechanism of injury. He was seen at [facility] a few days after the injury, [...] as tolerated, can wrap knee/calf area with guicho wrap for comfort if needed. Ice and [...] of the neck of the right fibula [place] Hand: MARTIN Transcribe Date/Time: Aug 01 2024 4:07P [...] Psych (no depression, anxi (more content not included)...[facility]01-06-2025 History of Present illness Narrative* Tammie Walters PA-C - 07/29/2024 4:44 PM EST Tammie Walters PA-C Department of Orthopaedics Orthopaedics [address] [facility] [address] Dept: [phone] Dept July 29, 2024 CHIEF COMPLAINT: New [...] mechanism of injury. He was seen at [facility] a few days after the injury, [...] as tolerated, can wrap knee/calf area with guicho wrap for comfort if needed. Ice and [...] of the neck of the right fibula [place] Hand: MARTIN Transcribe Date/Time: Aug 01 2024 4:07P [...] anxiety) This note was partially generated using [employer] voice recognition system, and there may be [...] Other: See comment (none) documented in this encounterShel[facility] Hospital01-06-2025 History of Present illness Narrative* Chuyita Valdovinos RT(R) - 07/29/2024 4:10 PM EST Radiology [...] PATIENT PRESENTS WITH AN IMPLANTABLE OR ATTACHED LEASE PICKER: No RADIOLOGY DEPARTMENT: General X-ray: Exam(s) Completed: Lower Extremity X- Ray(s): Tibia Fibula, Right PERIPHERAL IV DATA: Not applicable SIGNED BY: RT Anil(R) July 29, 2024 7:34 PM documented in this encounterSheltering [facility] Hospital01-06-2025 NoteHNO ID: [id number] Author: CHUYITA VALDOVINOS RT(R) Service: ? Author [...] PATIENT PRESENTS WITH AN IMPLANTABLE OR ATTACHED LEASE PICKER: No RADIOLOGY DEPARTMENT: General X-ray: Exam(s) Completed: Lower Extremity X-Ray(s): Tibia Fibula, Right PERIPHERAL IV DATA: Not applicable SIGNED BY: RT Anil(Maria Del Rosario) July 29, 2024 7:34 [facility] NoteHNO ID: [id number] Author: KEISHA RUGGIERO MA Service: ? Author Type: Schedule Checker Type: Progress Notes Filed: 08/02/2024 08:23 Note Text: AMB ROOMING INTAKE FLOWSHEET DATA Risk Screening Do you have concerns about personal safety or safety in the home?: No Pain Pain Level: 5 Pain Location: (right lower leg) Description: Aching, Sharp Duration Amount of Time: 1 Duration Units: Weeks Frequency: Continuous Intervention/Comfort measure: Other: See comment (none)[facility] NotePatient Outreach (PULMMN) CALIXTOGOOD Chacorta ([id number]) 1965 M Date Time Provider Department 07/29/24 EMMA DUPREE During your visit today, we recorded the following information about you: Allergies As of Date: 07/29/2024 (No Known Allergies) Date Reviewed: 07/29/2024 Reviewed by: Keisha Ruggiero MA - Fully Assessed Visit Diagnosis:Tobacco abuse [Z72.0] Order(s):CONSULT [facility] [8489037] Order #: [id number]: 1 FUTURE Prescriptions as of 08/01/2024 - [...] Rectal bleeding [K62.5] 05/12/2024 Encounter Status:Closed by CRYS HERNÁNDEZUSER on 08/01/24[facility] History of Present illness Narrative* Mathew Cobian MD - 07/25/2024 10:40 AM EST Chief Complaint Patient presents with: Hospital Follow Up HPI Good De Luna is a 59 year old male who presents here today for ER Follow Up.. Pt was in [facility] ER on 07/22/24 for closed fx [...] fax number to fax letter. Fax number [phone], ATTN: Karie. Case #: [id number]. Notes some sinus drainage and cough, wondering [...] leg. He states that he went to [facility] had an x-ray obtained and was told [...] Past Histories independently gathered by the clinical accounting support specialist and the remaining scribed note accurately describes [...] AM. Mick Youngblood MA documented in this encounterShel[facility] Hospital01-02-2025 NoteHNO ID: [id number] Author: MATHEW COBIAN MD Service: ? Author Type: Physician Type: Progress Notes Filed: 07/25/2024 11:12 Note Text: Chief Complaint Patient presents with: Hospital Follow Up HPI Good De Luna is a 59 year old male who presents here today for ER Follow Up.. Pt was in [facility] ER on 07/22/24 for closed fx [...] fax number to fax letter. Fax number [phone], ATTN: Karie. Case #: [id number]. Notes some sinus drainage and cough, wondering [...] leg. He states that he went to [facility] had an x-ray obtained and was told [...] 50 PLUS M (more content not included)... [facility]12-31-2024 Telephone encounter Note* Telephone Encounter - Keisha Ruggiero MA - 07/23/2024 1:34 PM EST I called and spoke with the patient. Advised no providers in the [place] office until 07/29/2024. Patient scheduled appointment. [facility]12-31-2024 Miscellaneous Notes* Telephone Encounter - Keisha Ruggiero MA - 07/23/2024 1:34 PM EST I called and spoke with the patient. Advised no providers in the [place] office until 07/29/2024. Patient scheduled appointment. * Telephone Encounter - Sofia Chung MA - 07/23/2024 12:47 PM EST Patient transferred. Patient states he was told by [facility] ED he has a fracture and needs to be seen byorthopedics by Monday. Patient unable to stay on hold for scheduling. Please advise Sofia Chung MA * Telephone Encounter - Ashlyn London RN - 07/23/2024 12:34 PM EST Pt scheduled [facility] ER f/u. 07-22-24. Reports has closed fx of fibula proximal right, and instructed to f/u with pcp and also ortho by the end of the week. Transferred to Ortho per pt request. documented in this encounterSheltering [facility] Hospital12-31-2024 Telephone encounter Note * Telephone Encounter - Ashlyn London RN - 07/23/2024 12:52 PM EST Pt phoned in for another reason and given provider's message below with verbalized understanding. Pt agreeable. [facility]12-31-2024 Miscellaneous Notes* Telephone Encounter - Ashlyn London RN - 07/23/2024 12:52 PM EST Pt phoned in for another reason and given provider's message below with verbalized understanding. Pt agreeable. * Telephone Encounter - Mick Youngblood MA - 07/22/2024 12:56 PM EST [employer] message sent to pt asking for a return call to office regarding his recent lab results. Pt notified office has attempted to reach him with left. Mick Youngblood MA * Telephone Encounter [...] placed Brian Ahmadi APRN.CNP documented in this encounterSheltering Arms Hospital12-31-2024 Telephone encounter Note * Telephone Encounter - Sofia Chung MA - 07/23/2024 12:47 PM EST Patient transferred. Patient states he was told by [facility] ED he has a fracture and needs to be seen byorthopedics by Monday. Patient unable to stay on hold for scheduling. Please advise Sofia Chung MA [facility]12-31-2024 Telephone encounter Note* Telephone Encounter - Ashlyn London RN - 07/23/2024 12:34 PM EST Pt scheduled [facility] ER f/u. 07-22-24. Reports has closed fx of fibula proximal right, and instructed to f/u with pcp and also ortho by the end of the week. Transferred to Ortho per pt request. [facility]12-30-20[facility] Telephone encounter Note* Telephone Encounter - Mick Youngblood MA - 07/22/2024 12:56 PM EST [employer] message sent to pt asking for a return call to office regarding his recent lab results. Pt notified office has attempted to reach him with VM left. Mick Youngblood MA [facility]12-[facility]24 Hospital Discharge instructions Patient Education 07/20/2024 [...] thin towel or cloth. You may use dnar-jkc-zmjzmur pain medicine (NSAIDS or nonsteroidal anti- inflammatory [...] is irritated You re-injure your ankle [employer]. [address] [place] [address]. All rights reserved. This information is not [...] above the level of your heart. Medicines Acdc-nqk-zwgoayd medicines such as acetaminophen or ibuprofen can [...] on an injured limb if it hurts. [id number] [employer]. [address] [place], [place] [id number]. All rights reserved. This information is not intended as a substitute for professional medical care. Always follow yourhealthcare professional's instructions. Follow Up Care 07/20/2024 14:16:50 With:KARAN SRINIVASAN DO Orthopedic Address: [facility] [address] [address] [phone] When:3-5 days With:Go to emergency room if symptoms worsen Address:Unknown When:2-4 days With:MATHEW COBIAN MD Address: [address] [place] [address]- When:2-4 days [facility] 12-28-2024 Note Discharge Instructions Thank you for allowing [place] to assist you with your healthcare needs. [...] KARAN SRINIVASAN DO Orthopedic When:Within 3-5 days Where:[address] [place] [phone] Follow Up with Go to emergency room if symptoms worsen When:Within 2-4 days Follow Up with MATHEW COBIAN MD When:Within 2-4 days Where:[address] [place] [address]- Allergies No Known Medication Allergies [...] thin towel or cloth. You may use khkv-oeq-iqajxth pain medicine (NSAIDS or nonsteroidal anti- inflammatory [...] or is irritated You re-injure your ankle 0134-0210 The [employer]. [address] [place] [address]. All rights reserved. This information is not [...] above the level of your heart. Medicines Hcxo-izl-dsgfdqc medicines such as acetaminophen or ibuprofen can [...] on an injured limb if it hurts. 4026-8081 [employer]. [address] [place] [address]. All rights reserved. This information is not intended as a substitute for professional medical care. Always follow yourhealthcare professional's instructions. Additional Information VACCINATE! IT SAVES LIVES! Members of the community who have not yet received the COVID-19 vaccine and would like to receive it can visit one of [facility] vaccine clinics. There are many vaccine clinic locations within the [facility]. For locations and available times, please visit www.[email or web address].[place].gov/. It is important to note that some COVID mobile vaccine clinics are held outdoors and may be canceled in rainy or stormy conditions. To learn more about pediatric vaccinations (ages 5-11), we invite you to visit the [facility] webpage. https://www.[email or web address].org/pages/7288-Fbzrg-Zpcwexjhnmh-Pjtubkootm-Mmnwf-Dau stions.htmlTo learn more about the COVID-19 vaccine, we invite you to visit the CDC website for a list of frequently asked questions. https://www.cdc.gov/coronavirus/2019-ncov/vaccines/faq.html [facility] [employer] Patient Portal Access Instructions: Stay connected with your healthcare team and access your personal medical information anytime with the [employer] Patient Portal. If you would like a full copy of your medical records please contact the [facility] Medical Records Department Monday through Monday between 8a.m. and 4:30p.m. Please follow the directions below to access the portal: 1.Access the email account you provided upon registration to the advanced surgical hospital.2.Look for an invitation email from [facility].3.Open the email and access the invitation link: Accept Invitation to [facility] [employer]4.Fill in the required casillas to create your [...] you will allow to register on the [facility] [employer] Patient Portal for access to your information. You can also access the [place] [employer] [facility] Patient Portal on the iLumen tabitha. Simply click on Health Records under BO.LT and then click on the Diane logo. [...] Call your local pharmacy or go to [email or web address] to find one close to you.3.Make use of household items: Use cat litter or old coffee grounds to dispose medications if other options arenot available. Mix your drugs with these household products, seal them in an airtight container andthrow it into the garbage. Call [facility]: [phone] to be sure your drugs can be [...] aware that I should contact my doctor. 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 Signature: Date/Time: Relationship to Patient: Witness Name/Signature: Date/Time: [facility]12-28-2024 Note* Exam Date Time Procedure Performing Provider Status 07/20/24 3:35 PM XR Tibia/Fibula 2 Views Right LARRY KASPER MD; Auth (Verified) [id number] ORIGINAL EXAMINATION: 6 XRAY VIEWS OF THE [...] Date: 07/20/2024 3:56:28 PM Ordering Provider: [facility]12-28-2024 Note* Exam Date Time Procedure Performing Provider Status 07/20/24 3:35 PM XR Ankle and Foot 6 Views Right LARRY ROBINS MD; Auth (Verified) [id number] ORIGINAL EXAMINATION: 6 XRAY VIEWS OF THE [...] Date: 07/20/2024 3:56:28 PM Ordering Provider: [facility]12-26-2024 Telephone encounter Note* Telephone Encounter - Levi Paniagua LPN - 07/18/2024 12:29 PM EST Left message for pt to contact office. Levi Paniagua LPN [facility]12-26-2024 Telephone encounter Note* Telephone Encounter - [...] 6 weeks. Labs placed Brian Ahmadi APRN.CNP [facility]12-20-2024 History of Present illness Narrative* Brian [...] needed. This note was partly generated using Tale[employer]on voice recognition dictation and may contain some misspelled or inaccurate words missed on review. documented [facility]12-[facility]-2024 NoteHNO ID: [id number] Author: BRIAN AHMADI APRN.CNP Service: ? Author [...] labs, EEG to finish workup. Brian Ahmadi APRN.HIGH SCHOOL LIBRARY MEDIA SPECIALIST RTO in 6 months, sooner if needed. This note was partly generated using Feathr voice recognition dictation and may contain some misspelled or inaccurate words missed on review.[facility]12-20-2024 Instructions* Patient Instructions* Brian Ahmadi APRN.CNP - 07/12/2024 10:56 AM EST [facility] refill sent Get labs to assess TSH Complete labs and EEG that was ordered by neurology Schedule with neurosurgery See us back in 6 months. Brian Ahmadi APRN.CNP documented in this encounterShel[facility] Hospital12-05-2024 Telephone encounter Note * Telephone Encounter - Gypsy Ayala APRN.CNP - 06/27/2024 8:11 AM EST Form has been completed and ready for mushroom picker. Patient has been notified. Gypsy Ayala APRN.CNP [facility] Work Phone: 1(725) 404-759912-05-2024 Miscellaneous Notes* Telephone Encounter - Gypsy Ayala APRN.CNP - 06/27/2024 8:11 AM EST Form has been completed and ready for mushroom picker. Patient has been notified. Gypsy Ayala [...] moving in a week. Patient wants to mushroom picker form when completed please. * Telephone [...] AM EST Pt dropped off form from [facility] stating that pt is requesting either 1) change in rules, policies, practices or services (due to a disability) to afford him/her full enjoyment of the premises or 2) a physical change (due to disability) to afford him/her full enjoyment of premises. Laura Whaley MA documented in this encounterShel[facility] Hospital11-26-2024 Telephone encounter Note * Telephone Encounter - Meena Garcia LPN - 06/18/2024 4:16 PM EST Patient is calling re: status of form. Needing FRANCIA or will have to pay extra $300 that he does nothave. Meena Garcia LPN [facility]11-22-2024 Telephone encounter Note* Telephone Encounter - Saniya Santoro LPN - 06/14/2024 2:19 PM EST Patient calling to see if form is completed, he is moving in a week. Patient wants to mushroom picker form when completed please. [facility]11-21-2024 Telephone encounter Note* Telephone Encounter - Laura Whaley MA - 06/13/2024 12:00 PM EST See phone note 06/10/24. Laura Whaley MA [facility]11-21-2024 Telephone encounter Note* Telephone Encounter - Laura Whaley MA - 06/13/2024 12:00 PM EST 06/06/24 he dropped a form off in the main lobby for pcp to complete. The form was to allow pt to have an emotional support cat without paying a pet fee. Pt asking if this is complete & has it been sent off yet? Scarlet Carvajal LPN [facility]11-21-2024 Miscellaneous Notes* Telephone Encounter - Laura [...] yet? Scarlet Carvajal LPN documented in this encounterSheltering [facility] Hospital11-20-2024 Telephone encounter Note * Telephone Encounter [...] been sent off yet? Scarlet Carvajal LPN [facility]11-18-2024 Telephone encounter Note* Telephone Encounter - Laura Whaley MA - 06/10/2024 10:08 AM EST Pt dropped off form from [facility] stating that pt is requesting either 1) change in rules, policies, practices or services (due to a disability) to afford him/her full enjoyment of the premises or 2) a physical change (due to disability) to afford him/her full enjoyment of premises. Laura Whaley MA [facility]11-15-2024 Telephone encounter Note* Telephone Encounter - Rylie Wing - 06/07/2024 10:33 AM EST Order for Consult to Neurosurgery needs to be edited. Diagnoses is only pulling general neurology providers instead of cerebrovascular providers. Currently unable to schedule. Please contact patient when completed. Thank you, Rylie Wing [facility]11-15-2024 Miscellaneous Notes* Telephone Encounter - Rylie Wing - 06/07/2024 10:33 AM EST Order for Consult to Neurosurgery needs to be edited. Diagnoses is only pulling general neurology providers instead of cerebrovascular providers. Currently unable to schedule. Please contact patient when completed. Thank you, Rylie Wing documented in this encounterSheltering [facility] Hospital11-15-2024 Telephone encounter Note * Telephone Encounter - Calixto Chandler RN - 06/07/2024 10:22 AM EST Caregiver calling with physician referral: Patient referred to Neurosurgery Department. Caregiver reports patient denies any new or worsening symptoms of which a provider is not aware:Yes Caregiver Rylie transferred to [facility] in appointment center for ordered neurosurgery consult. [facility]11-15-2024 Miscellaneous Notes* Telephone Encounter - Calixto Chandler RN - 06/07/2024 10:22 AM EST Caregiver calling with physician referral: Patient referred to Neurosurgery Department. Caregiver reports patient denies any new or worsening symptoms of which a provider is not aware:Yes Caregiver Rylie transferred to [facility] in appointment center for ordered neurosurgery consult. documented in this encounterSheltering [facility] Hospital11-11-2024 Telephone encounter Note * Telephone Encounter - Devi Cisse MD - 06/03/2024 3:27 PM EST Please make sure he comes for follow up visit ,he may need help scheduling tests and orders First visit is virtual visit [facility] Work Phone: 1(572) 878-453211-11-2024 Miscellaneous Notes* Telephone Encounter - Devi Cisse [...] logging in for apt. documented in this encounterSheltering [facility] Hospital11-11-2024 NoteHNO ID: [id number] Author: DEVI CISSE MD Service: ? Author Type: Physician Type: Progress Notes Filed: 06/09/2024 10:26 Note Text: [facility] [place] June 03, 2024 New Patient VIRTUAL VISIT PROGRESS NOTE This is a virtual visit using Lightwire Zoom Video Visit. It required patient-provider interaction for the medical decision making as documented below. I have communicated my name and active licensure. The patient's identity and physical location were verified at the time of this visit. Either the patient or their legal customer assistance representative has been informed of the risks [...] or syncopal episodes He was admitted in [facility] and had an MRI Brain and [...] ASSESSMENT: (R41.0) Confusion (primary encounter diagnosis) PLAN: [facility] on 06/03/24 VITAMIN B12 THYROID STIMULATING HORMONE FOLATE, SERUM METHYLMALONIC ACID MAGNESIUM CONSULT TO NEUROSURGERY EPIL EEG ROUTINE *Canceled* EPIL EEG ROUTINE There are no Patient Instructions on file for this visit. I spent a total of 55 minutes on the date of the service which included preparing to see the patient, thrw-sx-birm patient care, completing clinical documentation, obtaining and/or [...] mcg tablet Ta (more content not included)... [facility]11-11-2024 History of Present illness Narrative* Devi Cisse MD - 06/03/2024 3:04 PM EST Images from the original note were not included. [facility] [place] June 03, 2024 New Patient VIRTUAL VISIT PROGRESS NOTE This is a virtual visit using [employer] Magpie[employer] Zoom Video Visit. It required patient- provider interaction for the medical decision making as documented below. I have communicated my name and active licensure. The patient's identity and physical location wereverified at the time of this visit. Either the patient or their legal customer assistance representative has been informed of the risks [...] or syncopal episodes He was admitted in [facility] and had an MRI Brain and [...] ASSESSMENT: (R41.0) Confusion (primary encounter diagnosis) PLAN: [facility] on 06/03/24 VITAMIN B12 THYROID STIMULATING HORMONE FOLATE, SERUM METHYLMALONIC ACID MAGNESIUM CONSULT TO NEUROSURGERY EPIL EEG ROUTINE *Canceled* EPIL EEG ROUTINE There are no Patient Instructions on file for this visit. I spent a total of 55 minutes on the date of the service which included preparing to see the patient, ghki-op-gapu patient care, completing clinical documentation, obtaining and/or [...] of ... COLONOSCOPY DIAGNOSTIC Result Date: 05/13/2024 [facility] Gastrointestinal Endoscopy Patient Name: Good De Luna Procedure Date: 05/13/2024 8:00 AM Date of : 1965 Admit Type: Outpatient Age: 58 Room: [facility] A Gender: Male Note Status: Finalized Attending MD: Gilson Bar , , [id number] Procedure: Colonoscopy Indications: Evaluation of unexplained GI [...] physician, the nurse, the anesthesiologist and the cylinder handler in the pre-procedure area in the endoscopy [...] clip was successfully placed (MR safe). Clip drip molder: [employer] There was no bleeding at the end [...] cold biopsy forceps. Resected and retrieved. Clip drip molder: [employer] Clip(MR safe) was placed. - Eight 1 [...] present medications. Procedure Code(s): --- Professional --- 07601, Colonoscopy, flexible; with removal of tumor(s), polyp(s), or other lesion(s) by snare technique 92721, 59, Colonoscopy, flexible; with biopsy, single or multiple 70418, Colonoscopy, flexible; with directed submucosal injection(s), any substance Diagnosis Code(s): --- Professional --- K64.9, Unspecified hemorrhoids D12.2, Benign neoplasm of ascending colon D12.5, Benign neoplasm of sigmoid colon D12.8, Benign neoplasm of rectum K92.1, Melena (includes Hematochezia) K57.30, Diverticulosis of large intestine without perforation or abscess without bleeding CPT copyright 2020 [employer]. All rights reserved. The codes documented in this report are preliminary and upon certified medical records coder review may be revisedto meet current compliance requirements. Attending Participation: I personally performed the entireprocedure. Scope In: 8:25:49 AM Scope Out: 9:28:51 AM GILSON C. DO Gilson BAR, 05/13/2024 9:50:25 AM This report has been [...] 0 min Stress: Stress Concern Present (04/30/2024) [employer] [employer] - Occupational Stress Questionnaire Feeling of Stress : To some extent Social Connections: Socially Isolated (04/30/2024) Social Connection and Isolation Panel [NHANES] Frequency of Communication with Friends and Family: More than three times a week Frequency of Social Gatherings with Friends and Family: More than three times a week Attends Rastafarian Services: Never Active Member of Clubs or [...] Year: No Utilities: Not At Risk (05/13/2024) [facility] Utilities Threatened with loss of utilities: No Area Deprivation Index: High Risk (08/15/2023) Area Deprivation Index National Score (1-100), lower number is lower risk: 75 State Score (1-10), lower number is lower risk: 6 Data from: https://www.neighborhoodatlas.[facility]/. Last address used for calculation: [address] Diagnosis: (R41.0) Confusion (primary encounter diagnosis) IMP/PLAN: Good De Luna is 58 year old male, here today for episodes of confusion . MRI Brain showed venous anomaly Will do EEG r/o seizure [facility] on 06/03/24 VITAMIN B12 THYROID STIMULATING HORMONE FOLATE, SERUM METHYLMALONIC ACID MAGNESIUM CONSULT TO NEUROSURGERY EPIL EEG ROUTINE *Canceled* EPIL EEG ROUTINE Devi Cisse MD [facility] [place] Department of Neurology Total time in minutes spent with patient, reviewing records, labs, imaging, formulating plan, and documentin minutes with more than 50% of the time spent in patient education/counselling/coordinating care with the patient and /or family. documented in this encounterSheltering Arms Hospital11-11-2024 Telephone encounter Note * Telephone Encounter - Sofia Munoz MA - 06/03/2024 2:43 PM EST Talk to patient he already answered precheck in questions, I told him if I don't see he logged in Iwill give him a call to help [facility]11-11-2024 Telephone encounter Note* Telephone Encounter - Sofia Munoz MA - 06/03/2024 2:08 PM EST Left VM letting patient know he has an virtual apt. With Dr. Cisse at 3 pm and that I will try calling closer to 3 pm to see if help is needed with logging in for apt. [facility]10-30-2024 NoteHNO ID: [id number] Author: JENNIFER GALICIA APRN.HIGH SCHOOL LIBRARY MEDIA SPECIALIST Service: ? Author Type: Nurse Practitioner Type: Progress Notes Filed: 05/22/2024 14:48 Note Text: FOLLOW UP VISIT - ENDOSCOPY Good De Luna 1965 [id number] REFERRING PHYSICIAN: No referring provider defined for [...] cold biopsy forceps. Resected and retrieved. Clip drip molder: [employer] Clip (MR safe) was placed. - Eight [...] as needed for worsening/no improvement. Jennifer Galicia APRN.[facility]10-30-2024 History of Present illness Narrative* Jennifer Galicia APRN.HIGH SCHOOL LIBRARY MEDIA SPECIALIST - 05/22/2024 1:33 PM EDT FOLLOW UP VISIT - ENDOSCOPY Good De Luna 1965 [id number] REFERRING PHYSICIAN: No referring provider defined for [...] cold biopsy forceps. Resected and retrieved. Clip drip molder: [employer] Clip (MR safe) was placed. - Eight [...] recommend follow up endoscopy in 1 year. updated and recall letter generated. Discussed treatment plan and patient voices understanding. Patient's questions answered appropriately. Medications and potential side effects were discussed and patient voices understanding. Return to the office as scheduled or as needed for worsening/no improvement. Jennifer Galicia APRN.PATTIE documented in this encounterSheltering [facility] Hospital10-25-2024 Instructions* Patient Instructions* Prema Turner APRN.CNP [...] with your family doctor. documented in this encounterSheltering Arms Hospital10-25-2024 NoteHNO ID: [id number] Author: PREMA TURNER APRN.CNP Service: ? Author Type: Nurse Practitioner Type: Progress Notes Filed: 05/17/2024 13:10 Note Text: This note was created using HiGearriter. Subjective Good De Luna is a 58 [...] increased swelling, redness, or fever. Prema Turner APRN.[facility]10-25-[facility] History of Present illness Narrative* Prema Turner APRN.PATTIE - 05/17/2024 12:51 PM EDT Images from the original note were not included. This note was created using Vizibilityter. Subjective Good De Luna is a 58 [...] increased swelling, redness, or fever. Prema Turner APRN.HIGH SCHOOL LIBRARY MEDIA SPECIALIST documented in this encounterSheltering Arms Hospital10-24-2024 Telephone encounter Note * Telephone Encounter - Laura Whaley MA - 05/16/2024 4:33 PM EDT Mailed. Laura Whaley MA [facility]10-24-2024 Miscellaneous Notes* Telephone Encounter - Laura [...] updated letter. Please send to patient, via [facility]. Address verified. documented in this encounterSheltering Arms Hospital10-24-2024 Telephone encounter Note * Telephone Encounter - Mathew Cobian MD - 05/16/2024 4:24 PM EDT Letter done Mathew Cobian MD [facility]10-24-2024 Telephone encounter Note* Telephone Encounter - Ashlyn London RN - 05/16/2024 2:34 PM EDT Patient asking pcp to write an updated letter, stating he needs an emotional support animal. Reports he is moving and the place he's moving to needs an updated letter. Please send to patient, via [employer]. Address verified. [facility]10-22-2024 NoteHNO ID: [id number] Author: SP DAHL RN Service: ? Author Type: Registered Nurse [...] questions, needs or concerns. Patient discharged from [facility] Discharge date: 05/13/24 Admitted for: Rectal bleeding Readmission Risk: 6 Value-Based Contract: ACO Contact: Contact made with patient: Yes Hi, my name is Sp Dahl RN and I am calling from the [facility] on behalf of your Primary Care [...] to speak with a social work steam and power superintendent to help give you support for any [...] I will send your request to a property accountant who will contact and assist you with [...] Sp Dahl RN May 14, 2024 2:25 [facility]10-22-2024 History of Present illness Narrative* Sp Dahl [...] questions, needs or concerns. Patient discharged from [facility] Discharge date: 05/13/24 Admitted for: Rectal bleeding Readmission Risk: 6 Value-Based Contract: ACO Contact: Contact made with patient: Yes Hi, my name is Sp Dahl RN and I am calling from the [facility] on behalf of your Primary Care [...] to speak with a social work steam and power superintendent to help give you support for any [...] I will send your request to a property accountant who will contact and assist you with [...] 14, 2024 2:25 PM documented in this encounterSheltering Arms Hospital10-22-2024 NotePatient Outreach ([facility]) GOOD DE LUNA ([id number]) 1965 M Date Time Provider Department 05/14/24 SP DAHLMarilyn During your visit today, we recorded the [...] questions, needs or concerns. Patient discharged from [facility] Discharge date: 05/13/24 Admitted for: Rectal bleeding Readmission Risk: 6 Value-Based Contract: ACO Contact: Contact made with patient: Yes Hi, my name is Sp Dahl RN and I am calling from the [facility] on behalf of your Primary Care [...] to speak with a social work steam and power superintendent to help give you support for any [...] I will send your request to a property accountant who will contact and assist you with [...] Care [4074] Cmt: TCM Initial Hospital Discharge [place] 05/13/24 Prescriptions as of 05/14/2024 - levothyroxine [...] As Of Date 04/24 (more content not included)...[facility]10-21-2024 Nurse Note* Patricia Bai, REBA - 05/13/2024 10:49 AM EDT Other: 1020- made aware of Pt's HR. Orders received. 1040- Dr. Hutton iupdated on patient's HR. 1045- Pt c/o chest heaviness. Dr. Hutton at bedside. No new orders. Per Dr. Hutton patient ok to send to the floor. [facility]10-21-2024 Nurse Note* Patricia Bai, REBA - 05/13/2024 10:49 AM EDT Other: 1020- made aware of Pt's HR. Orders received. 1040- Dr. Hutton iupdated on patient's HR. 1045- Pt c/o chest heaviness. Dr. Hutton at bedside. No new orders. Per Dr. Hutton patient ok to send to the floor. documented in this encounterSheltering Arms Hospital10-21-2024 Attending History and physical note* Gilson [...] Resolved Resolved By Diverticulitis 04/30/2024 Brian Ahmadi, RETAIL SALES SPECIALIST.HIGH SCHOOL LIBRARY MEDIA SPECIALIST No Recurrent major depressive disorder, remission status [...] stenosis of lumbar region 12/12/2017 Brian Ahmadi APRN.HIGH SCHOOL LIBRARY MEDIA SPECIALIST No Overview Signed 12/12/2017 7:47 AM by Brian Ahmadi (Waiter/Waitress Room Service) MRI 11/2017 [facility] Thoracic or lumbosacral neuritis or radiculitis, [...] discussed with the Patient or Patient's Authorized Agronomy Professor. Asapplicable, any other physician, advance practice provider, medical student, or other health professional student that will be observing or involved in the sensitive examination for educational or training purposes was discussed with the Patient or Authorized Agronomy Professor. The Patient or Authorized Agronomy Professor has agreed to proceed with the sensitive [...] CC: Mathew Cobian MD CC: Brian Ahmadi [facility] Work Phone: 1(807) 961-939010-21-2024 History and physical note* Gilson Bar DO [...] Resolved Resolved By Diverticulitis 04/30/2024 Brian Ahmadi APRN.HIGH SCHOOL LIBRARY MEDIA SPECIALIST No Recurrent major depressive disorder, remission status unspecified ([facility]) 10/17/2023 Mathew Cobian MD No Prostate cancer ([facility]) 10/17/2023 Mathew Cobian MD No Congenital diplegia [...] stenosis of lumbar region 12/12/2017 Brian Ahmadi, KALEB.HIGH SCHOOL LIBRARY MEDIA SPECIALIST No Overview Signed 12/12/2017 7:47 AM by Brian Ahmadi (Waiter/Waitress Room Service) MRI 11/2017 [facility] Thoracic or lumbosacral neuritis or radiculitis, unspecified 04/25/2014 Chuyita Boyer, PT No Bilateral hip pain 04/17/2009 O MemoXiomy patel (Pt)(Hist) No SI (sacroiliac) joint dysfunction 04/17/2009 [...] discussed with the Patient or Patient's Authorized Agronomy Professor. Asapplicable, any other physician, advance practice provider, medical student, or other health professional student that will be observing or involved in the sensitive examination for educational or training purposes was discussed with the Patient or Authorized Agronomy Professor. The Patient or Authorized Agronomy Professor has agreed to proceed with the sensitive [...] MD CC: Brian Ahmadi documented in this encounterSheltering Arms Hospital10-20-2024 NoteHNO ID: [id number] Author: ANGELIKA MARTINES MD Service: General Surgery Author Type: Physician Type: Progress Notes Filed: 05/12/2024 16:57 Note Text: Direct admit by Dr. Bar for rectal bleedingOhiohealth Hardin Memorial [id number] Instructions* Patient Instructions* Gilson Bar DO - [...] am on dialysis? A: Please consult your right of way buyer prior to scheduling to get instructions pertinent [...] rest of the day. documented in this encounterSheltering Arms Hospital10-16-2024 History and physical note * Gilson [...] Resolved Resolved By Diverticulitis 04/30/2024 Brian Ahmadi APRN.HIGH SCHOOL LIBRARY MEDIA SPECIALIST No Recurrent major depressive disorder, remission status unspecified ([facility]) 10/17/2023 Mathew Cobian MD No Prostate cancer [...] stenosis of lumbar region 12/12/2017 Brian Ahmadi APRN.HIGH SCHOOL LIBRARY MEDIA SPECIALIST No Overview Signed 12/12/2017 7:47 AM by Brian Ahmadi (Waiter/Waitress Room Service) MRI 11/2017 [facility] Thoracic or lumbosacral neuritis or radiculitis, [...] discussed with the Patient or Patient's Authorized Agronomy Professor. Asapplicable, any other physician, advance practice provider, medical student, or other health professional student that will be observing or involved in the sensitive examination for educational or training purposes was discussed with the Patient or Authorized Agronomy Professor. The Patient or Authorized Agronomy Professor has agreed to proceed with the sensitive [...] CC: Mathew Cobian MD CC: Brian Ahmadi [facility]10-16-2024 History and physical note* Gilson Bar [...] Resolved Resolved By Diverticulitis 04/30/2024 Brian Ahmadi APRN.PATTIE No Recurrent major depressive disorder, remission status unspecified ([facility]) 10/17/2023 Mathew Cobian MD No Prostate cancer ([facility]) 10/17/2023 Mathew Cobian MD No Congenital diplegia ([facility]) 05/27/2021 BebbRochelle, PT, DPT No Spasticity 05/27/2021 BeRochelle dubois, PT, DPT No Costochondritis 05/27/2021 BeRochelle dubois, PT, DPT No Localized osteoporosis ([place]) 05/27/2021 Rochelle Cornelius, PT, DPT No Cerebral palsy ([facility]) Mathew Cobian MD No Nicotine use disorder, F17.2 02/11/2019 Zabrina Cevallos, DO No Back pain 02/10/2019 Zabrina Cevallos, DO No Chronic bilateral low back pain with right-sided sciatica 01/10/2018 Ray Giraldo, KEILA No Spinal stenosis of lumbar region 12/12/2017 Brian Ahmadi APRN.PATTIE No Overview Signed 12/12/2017 7:47 AM by Brian Ahmadi (Waiter/Waitress Room Service) MRI 11/2017 [facility] Thoracic or lumbosacral neuritis or radiculitis, [...] discussed with the Patient or Patient's Authorized Agronomy Professor. Asapplicable, any other physician, advance practice provider, medical student, or other health professional student that will be observing or involved in the sensitive examination for educational or training purposes was discussed with the Patient or Authorized Agronomy Professor. The Patient or Authorized Agronomy Professor has agreed to proceed with the sensitive [...] MD CC: Brian Ahmadi documented in this encounterSheltering Arms Hospital10-16-2024 Nurse Note* Arlene Baker MA - [...] N/A Last Colonoscopy: NONE Arlene Baker MA [facility]10-16-2024 Nurse Note* Arlene Baker MA - [...] NONE Arlene Baker MA documented in this encounterSheltering Arms Hospital10-11-2024 History of Present illness Narrative* Brian Ahmadi APRN.HIGH SCHOOL LIBRARY MEDIA SPECIALIST - 05/03/2024 10:40 AM EDT Chief Complaint [...] return. This note was partly generated using TaleSpringon voice recognition dictation and may contain some misspelled or inaccurate words missed on review. documented in this encounterSheltering Arms Hospital10-11-2024 NoteHNO ID: [id number] Author: BRIAN AHMADI APRN.CNP Service: ? Author [...] Continue to see general surgery. Brian Ahmadi APRN.HIGH SCHOOL LIBRARY MEDIA SPECIALIST RTO if symptoms return. This note was partly generated using Feathr voice recognition dictation and may contain some misspelled or inaccurate words missed on review.[facility]10-10-2024 Telephone encounter Note* Telephone Encounter - Michael Feliciano MA - 05/02/2024 7:30 AM EDT PSA pended. Michael Feliciano MA [facility]10-10-2024 Miscellaneous Notes* Telephone Encounter - Michael Feliciano MA - 05/02/2024 7:30 AM EDT PSA pended. Michael Feliciano MA documented in this encounterSheltering Arms Hospital10-08-2024 History of Present illness Narrative* Brian Ahmadi APRN.PATTIE - 04/30/2024 1:20 PM EDT Chief Complaint Patient presents with: ER F/U: [facility] ER diverticulitis 04/23/2024 HPI Good De Luna is a 58 year old male who presents here today for Hospital Discharge Follow up. follow up for diverticulitis. Patient presenting for emergency room follow-up. Patient went to [facility] on April 23 for complaints of rectal [...] was originally referred to Dr. Wood at [facility] but has not made an appointment. We [...] 562.11, ICD10: K57.92 (primary diagnosis) -Diagnosed in [facility]. Last day of Augmentin. Not responding to [...] which included preparing to see the patient, [id number] patient care, completing clinical documentation, obtaining and/or reviewing separately obtained history, performing a medically appropriate examination, counseling and educating the pat ient/family/caregiver, and ordering medications, tests, or procedures. This note was partly generated using Feathr voice recognition dictation and may contain some misspelled or inaccurate words missed on review. documented in this encounterSheltering Arms Hospital10-08-2024 NoteHNO ID: [id number] Author: BRIAN AHMADI APRN.CNP Service: ? Author Type: Nurse Practitioner Type: Progress Notes Filed: 04/30/2024 14:12 Note Text: Chief Complaint Patient presents with: ER F/U: [facility] ER diverticulitis 04/23/2024 HPI Good De Luna is a 58 year old male who presents here today for Hospital Discharge Follow up. follow up for diverticulitis. Patient presenting for emergency room follow-up. Patient went to [facility] on April 23 for complaints of rectal [...] was originally referred to Dr. Wood at [facility] but has not made an appointment. We [...] 562.11, ICD10: K57.92 (primary diagnosis) -Diagnosed in [facility]. Last day of Augmentin. Not responding to [...] VACCINE AGE 12+ YR (COMIRNATY) Brian Ahmadi APRN.HIGH SCHOOL LIBRARY MEDIA SPECIALIST RTO in 3 days I spent a total of 31 minutes on the date of the service which included preparing to see the patient, [id number] patient care, completing clinical documentation, obtaining and/or reviewing separately obtained history, performing a medically appropriate examination, counseling and educating the patient/family/caregiver, and ordering medications, tests, or procedures. This note was partly generated using TaleSpringon voice recognition dictation and may contain some misspelled or inaccurate words missed on review.[facility]10-03-2024 Telephone encounter Note* Telephone Encounter - Mathew Cobian MD - 04/25/2024 8:31 AM EDT OK to refill as ordered Mathew Cobian MD [facility]10-03-2024 Miscellaneous Notes* Telephone Encounter - Mathew [...] asking fornew rx to be sent to [facility] pharmacy please, he said the 175 [...] 24, 2024 2:40 PM documented in this encounterSheltering Arms Hospital10-02-2024 Telephone encounter Note * Telephone Encounter - Saniya Santoro LPN - 04/24/2024 2:37 PM EDT Patient calling has a message from Priya Ahmadi that he changed his Levothyroxine to 150 mcg and the pharmacy does not have new rx. Explained to patient dose was updated in computer. He is asking fornew rx to be sent to [facility] pharmacy please, he said the 175 [...] Santoro LPN April 24, 2024 2:40 PM [facility]10-01-2024 Telephone encounter Note* Telephone Encounter - Brian Ahmadi APRN.CNP - 04/23/2024 2:26 PM EDT Noted and agree. Brian Ahmadi APRN.CNP [facility]10-01-2024 Miscellaneous Notes* Telephone Encounter - Brian [...] far. 10. : No Protocols used: Rectal Qenkrhhq-LXSAQ-HU documented in this encounterSheltering Arms Hospital10-01-2024 Telephone encounter Note * Telephone Encounter [...] far. 10. : No Protocols used: Rectal Vrqbljji-JLIZV-BL [facility]09-25-2024 Instructions* Patient Instructions* Gypsy Ayala APRN.CNP - 04/17/2024 9:50 AM EDT Continue to take all medication as prescribed. Get repeat labs in June Keep up coming appointment with Neurology May get ultrasound to evaluate neck mass Follow up with ENT Follow up as scheduled or sooner pending test results. documented in this encounterSheltering Arms Hospital09-25-2024 History of Present illness Narrative* Gypsy Ayala APRN.PATTIE - 04/17/2024 9:40 AM EDT This is [...] APRN.PATTIE This note was partially generated using Feathr voice recognition system. Note was reviewed for accuracy. There may be minor misspellings or grammar miscues with Feathr voice recognition. documented in this encounterSheltering Arms Hospital09-25-2024 NoteHNO ID: [id number] Author: GYPSY AYALA APRN.PATTIE Service: ? Author Type: Nurse Practitioner [...] Continue with Synthroid 150 (more content not included)...[facility]09-20-2024 History of Present illness Narrative* Brian Ahmadi, RETAIL SALES SPECIALIST.HIGH SCHOOL LIBRARY MEDIA SPECIALIST - 04/12/2024 10:40 AM EDT Chief Complaint [...] neurology in April with Dr. Cisse in [place]. He has been following with ear nose and throat at [place] for inner ear problems. He was given [...] needed. This note was partly generated using Feathr voice recognition dictation and may contain some misspelled or inaccurate words missed on review. documented in this encounterSheltering Arms Hospital09-20-2024 NoteHNO ID: [id number] Author: BRIAN AHMADI APRN.CNP Service: ? Author [...] fog, memory issues. I did order the [place] score test last month but he has not completed. He will do so soon. He has follow-up with neurology in April with Dr. Cisse in [place]. He has been following with ear nose and throat at [place] for inner ear problems. He was given [...] medications for the past month. Brian Ahmadi APRN.HIGH SCHOOL LIBRARY MEDIA SPECIALIST RTO in 3 months, sooner if needed. This note was partly generated using Feathr voice recognition dictation and may contain some misspelled or inaccurate words missed on review.[facility]09-12-2024 Telephone encounter Note* Telephone Encounter - Gabby Roldan LPN - 04/04/2024 3:25 PM EDT Patient notified of referral, verbalizes understanding of instructions. Gabby Roldan LPN [facility]09-12-2024 Miscellaneous Notes* Telephone Encounter - Gabby Roldan LPN - 04/04/2024 3:25 PM EDT Patient notified of referral, verbalizes understanding of instructions. Gabby Roldan LPN * Telephone Encounter - Brian Ahmadi APRN.CNP - 04/04/2024 2:59 PM EDT Please let the patient know that I placed a referral to ENT. We usually have patients go to [place]. Brian Ahmadi APRN.PATTIE * Telephone Encounter - Angelika Geller LPN - 04/04/2024 2:06 PM EDT Pt calls requesting a referral for another ENT states is wanting a second opinion . Has been seeingsomeone here in [place]. Asking for someone maybe in [place]. Please advise. documented in this encounterSheltering Arms Hospital09-12-2024 Telephone encounter Note * Telephone Encounter - Brian Ahmadi APRN.CNP - 04/04/2024 2:59 PM EDT Please let the patient know that I placed a referral to ENT. We usually have patients go to [place]. Brian Ahmadi APRN.CNP [facility]09-12-2024 Telephone encounter Note* Telephone Encounter - Angelika Geller LPN - 04/04/2024 2:06 PM EDT Pt calls requesting a referral for another ENT states is wanting a second opinion . Has been seeingsomeone here in [place]. Asking for someone maybe in [place]. Please advise. [facility]08-23-2024 Telephone encounter Note* Telephone Encounter - Scarlet Pascual LPN - 03/15/2024 12:00 PM EDT Phoned patient and reviewed provider's message with him. He voiced understanding. Scarlet Pascual LPN [facility]08-23-2024 Miscellaneous Notes* Telephone Encounter - Scarlet [...] understanding. Scarlet Pascual LPN documented in this encounterSheltering Arms Hospital08-23-2024 Telephone encounter Note * Telephone Encounter - Brian Ahmadi APRN.CNP - 03/15/2024 11:22 AM EDT Patient saw urology 3 days ago. They placed a PSA to be completed in August. Brian Ahmadi APRN.CNP [facility]08-23-2024 Telephone encounter Note* Telephone Encounter - Scarlet Pascual LPN - 03/15/2024 10:57 AM EDT Following patient's appointment he was inquiring if he could get his PSA drawn to have it recheckedto ensure it's not getting higher. Advised patient would route provider a message since currently in with patient and get back with him once provider responds. Patient voiced understanding. Scarlet Pascual LPN [facility]08-23-2024 History of Present illness Narrative* Brian Ahmadi APRN.HIGH SCHOOL LIBRARY MEDIA SPECIALIST - 03/15/2024 10:20 AM EDT Chief Complaint [...] reassess. - BACH SCREENING TEST Brian Ahmadi APRN.CNP RTO in 1 months, sooner if needed. This note was partly generated using Feathr voice recognition dictation and may contain some misspelled or inaccurate words missed on review. documented in this encounterSheltering Arms Hospital08-21-2024 Telephone encounter Note * Telephone Encounter - Gabby Roldan LPN - 03/13/2024 9:19 AM EDT Pt has appt on 03/13 at 10:20 am. Gabby Roldan LPN [facility]08-21-2024 Miscellaneous Notes* Telephone Encounter - Gabby [...] convenience. Brian Ahmadi APRN.PATTIE documented in this encounterSheltering Arms Hospital08-21-2024 Telephone encounter Note * Telephone Encounter - Brian Ahmadi APRN.CNP - 03/13/2024 8:31 AM EDT Please assist with scheduling patient with myself for a follow up. His TSH is abnormal, we need to discuss changing his dose. I have openings on Monday for his convenience. Brian Ahmadi APRN.PATTIE [facility]08-20-2024 History of Present illness Narrative* Raphael [...] Calderon Jr, MD 03/12/2024 documented in this encounterSheltering Arms Hospital08-06-2024 Telephone encounter Note * Telephone Encounter [...] know I would send his information to [place] [facility] for him. Pt also missed his neurology appointment in [place] in December, Pt put through to scheduling to set up. Faxed demographic sheet, orders, and 10/17/23 OV note to fax # [phone]. [facility]08-06-2024 Miscellaneous Notes* Telephone Encounter - Renard [...] know I would send his information to [place] [facility] for him. Pt also missed his neurology appointment in [place] in December, Pt put through to scheduling to set up. Faxed demographic sheet, orders, and 10/17/23 OV note to fax # [phone]. documented in this encounterSheltering [facility] Hospital07-27-2024 History of Present illness Narrative* Geovanna Steele APRN.HIGH SCHOOL LIBRARY MEDIA SPECIALIST - 02/17/2024 11:57 AM EDT Images from the original note were not included. Subjective Came in with complaints of itching rash on the left lower ankle. Patient says that he noticed it this morning. Patient was outside yesterday but did not get into [place]. Patient denies any other symptoms other than itching. The history is provided by the patient. No speech and language tutor was used. Rash Review of Systems Constitutional: [...] okay with this care plan. Geovanna Steele APRN.PATTIE documented in this encounterSheltering Arms Hospital07-08-2024 Telephone encounter Note * Telephone Encounter - Brian Ahmadi APRN.CNP - 01/29/2024 2:32 PM EDT The following approved medication requests have been transmitted electronically. Requested Prescriptions Pending Prescriptions Disp Refills omeprazole (PRILOSEC) 20 mg capsule [Pharmacy Med Name: OMEPRAZOLE DR 20 MG CAPSULE] 90 capsule 3 Sig: take 1 capsule by mouth once daily Brian Ahmadi APRN.CNP [facility]07-08-2024 Miscellaneous Notes* Telephone Encounter - Brian [...] 29, 2024 12:31 PM documented in this encounterSheltering Arms Hospital07-08-2024 Telephone encounter Note * Telephone Encounter [...] Sofia Cid January 29, 2024 12:31 PM [facility] Work Phone: [phone]) [phone] Telephone encounter Note* Telephone Encounter - Gabby Roldan LPN - 12/20/2023 6:12 PM EDT Patient notified of results, verbalizes understanding of instructions. Gabby Roldan LPN [facility]05-29-2024 Miscellaneous Notes* Telephone Encounter - Gabby [...] has any questions. Thank you. Gypsy Ayala APRN.PATTIE documented in this encounterSheltering Arms Hospital05-29-2024 Telephone encounter Note * Telephone Encounter [...] has any questions. Thank you. Gypsy Ayala APRN.PATTIE [facility]05-23-2024 Instructions* Patient Instructions* Gypsy Ayala APRN.CNP - 12/14/2023 11:37 AM EDT Get labs completed Take Claritin daily add on Flonase twice daily, rinse mouth afterwards. Recommend consult with Neurology (Dr. Melonie Mcneil). Follow up pending test results documented in this encounterSheltering Arms Hospital05-23-2024 History of Present illness Narrative* Gypsy [...] APRN.PATTIE This note was partially generated using GameOn recognition system. Note was reviewed for accuracy. There may be minor misspellings or grammar miscues with Feathr voice recognition. documented in this encounterSheltering Arms Hospital05-16-2024 Telephone encounter Note * Telephone Encounter - Gypsy Ayala APRN.CNP - 12/07/2023 12:17 PM EDT The following approved medication requests have been transmitted electronically. Requested Prescriptions Pending Prescriptions Disp Refills levothyroxine (SYNTHROID) 175 mcg tablet [Pharmacy Med Name: LEVOTHYROXINE 175 MCG TABLET] 90 tablet 3 Sig: take 1 tablet by mouth every morning ON AN EMPTY STOMACH for THYROID Gypsy Ayala APRN.CNP [facility]05-16-2024 Miscellaneous Notes* Telephone Encounter - Gypsy [...] THYROID Gypsy Ayala APRN.CNP documented in this encounterSheltering Arms Hospital05-15-2024 Telephone encounter Note * Telephone Encounter [...] was identified. 12/06/2023 by Gypsy Ayala APRN.CNP [facility]05-15-2024 Miscellaneous Notes* Telephone Encounter - Gypsy [...] a new rx to be sent to [place] [facility] please. Pending rx if wanted. Please advise documented in this encounterSheltering Arms Hospital05-15-2024 Telephone encounter Note * Telephone Encounter [...] [facility] please. Pending rx if wanted. Please advise [facility]05-15-2024 Telephone encounter Note* Telephone Encounter - Ava Dunn RN - 12/06/2023 10:53 AM EDT Patient calling requesting to speak with occupational medicine officer. Patient states he cannot find his Lorazepam andwould like to see if it is possible for provider to call in a new prescription. Patient denies any new or worsening symptoms of which a provider is not aware:Yes . [facility]05-15-2024 Miscellaneous Notes* Telephone Encounter - Ava Dunn RN - 12/06/2023 10:53 AM EDT Patient calling requesting to speak with occupational medicine officer. Patient states he cannot find his Lorazepam andwould like to see if it is possible for provider to call in a new prescription. Patient denies any new or worsening symptoms of which a provider is not aware:Yes . documented in this encounterSheltering Arms Hospital04-14-2024 Miscellaneous Notes* Telephone Encounter - Zoë [...] AM EDT ----- Message from Carolyn Nava APRN.HIGH SCHOOL LIBRARY MEDIA SPECIALIST sent at 11/03/2023 7:14 AM EDT ----- Please advise patient the urine culture was negative for any infection. Follow instructions given by provider at visit, f/u with PCP if symptoms persist or worsen. documented in this encounterSheltering Arms Hospital04-10-2024 History of Present illness Narrative* Terri Mackey TECHNOLOGIST - 11/01/2023 5:00 PM EDT Radiology [...] PATIENT PRESENTS WITH AN IMPLANTABLE OR ATTACHED LEASE PICKER: No RADIOLOGY DEPARTMENT: Ultrasound PERIPHERAL IV DATA: Not applicable SIGNED BY: TECHNOLOGIST Werner November 01, 2023 5:17 PM documented in this encounterSheltering Arms Hospital04-10-2024 History of Present illness Narrative* Barbara Quarles APRN.CNP - 11/01/2023 3:05 PM EDT This note was created using HiGearriter. Subjective Good De Luna is a 58 [...] Exam Vitals reviewed. Exam conducted with a corporate travel coordinator present. Constitutional: General: He is awake. He is not in acute distress. Appearance: Normal appearance. He is obese. He is not ill-appearing, toxic- appearing or diaphoretic. HENT: Head: Normocephalic and atraumatic. Right Ear: Hearing normal. Left Ear: Hearing normal. Nose: Nose normal. Mouth/Throat: Lips: [place]. No lesions. Eyes: General: Lids are normal. [...] do not improve Roseline Henry TEACHING PROVIDER (Physician/PA/RETAIL SALES SPECIALIST) NOTE OF PERSONAL INVOLVEMENT IN CARE: I have personally seen and examined the patient and performed the medical decision-making components. I have reviewed the Advanced Practice Registered Nurse (RETAIL SALES SPECIALIST) Student's documentation and verified the findings in the note as written. Any additions or changes are noted in bold/italics. Signature: Barbara Quarles Date: 11/01/2023 Time: 7:13 PM documented in this encounterSheltering Arms Hospital04-04-2024 Miscellaneous Notes* Telephone Encounter - Mick Youngblood MA - 10/26/2023 4:53 PM EDT This has been signed and sent to be mailed out. Mick Youngblood MA * Telephone Encounter - Mick Youngblood MA - 10/26/2023 2:38 PM EDT Parking placard on PCP's desk to sign. Pt requesting to have this mailed to his home. Mick Youngblood MA documented in this encounterSheltering [facility] Hospital03-26-2024 History of Present illness Narrative* Mathew Cobian MD - 10/17/2023 10:00 AM EDT Chief Complaint Patient presents with: Hospital Follow Up HPI Good De Luna is a 58 year old male who presents here today for Hospital Discharge Follow up.. Pt went to [facility] on 09/26/23 and transferred to [facility] on 09/26/23 for Developmental venous anomaly. Stroke was ruled out. Discharged to 09/29/23 to [facility]. Pt was discharged from [facility] on 10/14/23. He states he is [...] care of Good De Luna at [facility]. As you well [...] therapy. He is being discharged to an [facility] in a stable condition. This discharge plan has been explained to the patient and his girlfriend. Diagnosis: Developmental venous anomaly, Pre-syncope Management plan at discharge: -Continue home medications including synthroid, omeprazole and citalopram -Therapies at an [facility] Follow up plan after discharge: -Follow [...] 07/24/2023 Influenza Vaccine(1) due on 01/21/2024 Covid-19 Vaccine(4 - season) due on 10/16/2024 Annual PCP Team [...] 780.4, ICD10: R42 Continue current medications. Consult [facility] 5. Cerebral palsy, unspecified type (HCC) - ICD9: 343.9, ICD10: G80.9 Consult [facility] Follow up in as needed. I agree with the Chief Complaint, ROS, and Past Histories independently gathered by the clinical accounting support specialist and the remaining scribed note accurately describes [...] AM. Laura Whaley MA documented in this encounterSheltering Arms Hospital03-25-2024 Miscellaneous Notes* Telephone Encounter - Mick [...] 1:25 PM EDT Office received discharge from [facility] in office. Faxed to Adrianna at information below. Mick Youngblood Ma * Telephone Encounter - Gabby Abarca, RN - 10/16/2023 9:33 AM EDT Adrianna from [facility]. She states she wanted to make sure Dr. Cobian was aware that [facility] She is asking that we fax pt's discharge summary to her at [phone]. Explained that it did not appear that we have it yet. She states whenever we get it to please fax it to her. documented in this encounterSheltering Arms Hospital03-20-2024 Telephone encounter Note * Telephone Encounter - Tere Mak - 10/11/2023 11:55 AM EDT Name of caller: Park Relation to patient: [facility] Contact phone number: [phone] Appointment scheduled with: Dr. Taylor Appointment date & time: 10/18/23 8:00 AM Reason for visit (are you having any symptoms) : Developmental venous anomaly 09/26/23 ED admission Transportation issues/ concerns: No Special accommodations? ( wheel chair, etc) : None Current medications: No Any refills need: None Any chronic conditions the provider should be aware of: No [id number] Miscellaneous Notes* Telephone Encounter - Tere Mak - 10/11/2023 11:55 AM EDT Name of caller: Park Relation to patient: [facility] Contact phone number: [phone] Appointment scheduled with: Dr. Taylor Appointment date & time: 10/18/23 8:00 AM Reason for visit (are you having any symptoms) : Developmental venous anomaly 09/26/23 ED admission Transportation issues/ concerns: No Special accommodations? ( wheel chair, etc) : None Current medications: No Any refills need: None Any chronic conditions the provider should be aware of: No documented in this encounterSGrant [id number] Miscellaneous Notes* Telephone Encounter - Uma Jett RN - 10/02/2023 3:58 PM EDT Adrianna Inlayer with [facility] calls to report that patient was discharged from [facility] on 09/28 and admitted to [facility]. Uma Jett RN documented in this encounterSheltering Arms Hospital03-08-2024 Nurse Note* Nursing Notes - Giselle Steele RN - 09/29/2023 10:49 AM EST Report called Mandi Miller RN. AVS,GLENROY faxed IVs discontinued Discharge suite to come transport pt to his SO. [facility]03-08-2024 Miscellaneous Notes* Nursing Notes - Giselle [...] d/c'd) * Plan of Care - Froilan Stallworth PT - 09/28/2023 2:19 PM EST Problem: [...] EST Neurosurgery Update: Consulted for [facility]. Briefly, Mr. Good De Luna is a 58 y.o. male w/ cerebral palsy, hypothyroidism, prostate cancer [place] 6 currently on surveillance p/w dizziness and [...] MD, Neurosurgery NS2 ([id number]) documented in this [facility]03-08-2024 History of Present illness Narrative* Laura Gary, SAHRA - 09/29/2023 8:42 AM EST Acute Occupational [...] 12/31. Transfer Assessment/Intervention: Sit to Stand Transfer David Level: Sit->Stand: contact guard assist Assistive Device: Sit->Stand: gait belt, 2 wheeled walker Skilled Rationale: Verbal cues, Positioning, Hand placement, Full extension to upright positioning/posture, Technique of activity, Cues for increased safety Skilled Intervention/Details: Sit->Stand: x4 from EOB. Stand to Sit Transfer David Level: Stand->Sit: contact guard assist Assistive Device: Stand->Sit: gait belt, 2 wheeled walker Skilled Rationale: Verbal cues, Positioning, Hand placement, Technique of activity, Cues for increased safety Functional Mobility: Functional Mobility David Level: Functional Mobility/Gait: contact guard assist Assistive Device: Functional Mobility/Gait: 2 wheeled walker, gait belt Functional Mobility Distance: Distance needed to access restroom Ambulation Distance (Feet): 45 (15,15,5,5,5) Functional Mobility Deficits: Activity tolerance, Balance, Follow safety/precautions, Generalized weakness Functional Mobility Skilled Rationale: Verbal cues, Cues for increased safety, Energy conservation,Technique of activity Outcome Score(s): CURRENT [facility] Daily Activity Inpatient Short Form Putting on/Taking Off Lower Body Clothin - A Little Assistance Bathin - A Little Assistance Toiletin - A Little Assistance Putting on/Taking Off Upper Body Clothin - A Little Assistance Groomin - A Little Assistance Eatin - No Assistance CURRENT [facility] Activity Raw Score: 19 CURRENT [facility] Activity Functional Limitation/Modifier: 42.80% Currently [...] on developed symptoms of positional light-headedness on 3/2 (since Sat evening on and off). He [...] Selected Services Address Phone Fax Patient Preferred [facility] Inpatient Rehabilitation [address] [place] [address] ---- Patient medically stable for discharge per physician/medical team. Pt to discharge to [facility] tomorrow at 1300. SO to transport Pt to [facility]. The phone number for report is [phone], and the fax number for AVS/[facility]ENROY is [phone]. Pt to schedule appointment with neurosurgery. 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 remain in agreement with the discharge plan. ARMEN Martinez Inlayer [phone], [phone] CM updated Pt's Home Care Waiver CM on the status of the discharge plan. ARMEN Martinez Inlayer [phone] * Froilan Stallworth PT - 09/28/2023 1:37 PM EST Acute Physical Therapy Treatment Prior to Admission [facility] score(s): PRIOR LEVEL AM-PAC Mobility Raw Score: [...] support. Mobility Assessment/Intervention: Supine to Sit Mobility David Level: Supine->Sit: stand-by assist Bed Features/Set-up: Supine->Sit: Flat Transfer Assessment/Intervention: Sit to Stand Transfer David Level: Sit->Stand: contact guard assist Assistive Device: Sit->Stand: gait belt, 2 wheeled walker Skilled Rationale: Verbal cues, Hand placement, Facilitate anterior shift Stand to Sit Transfer David Level: Stand->Sit: contact guard assist Assistive Device: Stand->Sit: gait belt Skilled Rationale: Verbal cues, Positioning, Controlled descent for sitting Gait/Functional Mobility Assessment/Intervention: Gait Assessment David Level: Gait: contact guard assist Assistive Device: [...] bilaterally to improve independence. Stairs Assessment/Intervention: CURRENT [facility] Basic Mobility Inpatient Short Form Turning over [...] railin - A Lot of Assistance CURRENT [facility] Mobility Raw Score: 18 CURRENT -[facility] Mobility Functional Limitation/Modifier: 46.58% Currently Impaired in [...] discontinueantibiotics. DC to ARF today. Follow-up in NSG in outpatient clinic. Follow-up with PCP in 1 week. Cristina Chan MD I * ZOEY Fallon - 09/28/2023 9:04 AM EST Acute Care Speech Language Pathology Note Received consult for swallow evaluation. However, patient passed [place] Swallow Screening by nursing.Swallow eval by TECHNICIAN will not be completed at this time unless this service notified of change in status or re-consult for swallow eval placed. TECHNICIAN speech/language/cognitive consult received and chart review completed [...] Partner at bedside in agreement. Therefore, skilled TECHNICIAN evaluation and services are not warranted at this time. TECHNICIAN will complete consult. Discussed with pt who states awareness/indications for follow up in OP setting. Time in: 904 Time out: 922 No charge Cherise Powers MA, [facility]-TECHNICIAN Pager: [phone] License: [email or web address] Email: [email or web address] * Herlinda Smith, RETAIL SALES SPECIALIST-HIGH SCHOOL LIBRARY MEDIA SPECIALIST - 09/28/2023 8:05 AM EST NEUROVASCULAR STROKE SERVICE Daily Progress Note IDENTIFYING INFORMATION Good De Luna MR# [id number] 09/28/2023 HISTORY OF PRESENT ILLNESS Good De [...] De Luna will likely be discharged to [facility] Herlinda Smith APRN-PATTIE 09/28/2023 11:31 AM [...] Bed Availability Current Referrals and Status 1. [facility]-accepted I[facility] is not expected to have a bed until or Monday. CM updated Pt and the treatment team. ARMEN Martinez Inlayer [phone] * Miley Le OT - 09/27/2023 11:28 AM EST Referral has been received to evaluate for admission to [facility] for inpatient rehab. Will review and notify of determination via source of referral. [facility] to complete chart review when therapy evaluations available. Thank you, ILIA Paulino, OTR/L, CBIS Rehab Graining Machine Operator [address] [phone] / [email or web address] * MACHELLE Jain - 09/27/2023 10:31 AM EST NEUROVASCULAR STROKE SERVICE Daily Progress Note IDENTIFYING INFORMATION Good De Luna MR# [id number] 09/27/2023 HISTORY OF PRESENT ILLNESS Good De [...] De Luna will likely be discharged to [facility] MACHELLE Jain 09/27/2023 10:36 AM VITAL [...] Acute Physical Therapy Evaluation Prior to Admission [facility] score(s): PRIOR LEVEL AM-PAC Mobility Raw Score: [...] Intact Mobility Assessment: Supine to Sit Mobility David Level: Supine->Sit: stand-by assist Skilled Rationale: Positioning, Sequencing, Verbal cues, Cues for increased safety Skilled Intervention/Details: Supine->Sit: stand by assist, cues for logroll due to back pain Sit to Supine Mobility David Level: Sit->Supine: minimum assist (75% patient effort) [...] standing. Transfer Assessment: Sit to Stand Transfer David Level: Sit->Stand: minimum assist (75% patient effort) Assistive Device: Sit->Stand: gait belt Skilled Rationale: Positioning, Sequencing, Verbal cues, Cues for increased safety, Technique of activity Skilled Intervention/Details: Sit->Stand: x2 from EOB, x1 from recliner, cues for safety throughout, requires cues to push from recliner instead of pulling on walker for support. Stand to Sit Transfer David Level: Stand->Sit: minimum assist (75% patient effort) Assistive Device: Stand->Sit: gait belt Skilled Rationale: Positioning, Hand placement, Sequencing, Verbal cues, Cues for increased safety Skilled Intervention/Details: Stand->Sit: Pt requires assist and cues for proximity of chair andcontrolled descent Gait/Functional Mobility: Gait Assessment David Level: Gait: minimum assist (75% patient effort) [...] clearance during bouts. Stairs: Outcome Score(s): CURRENT -[facility] Basic Mobility Inpatient Short Form Turning over [...] railin - A Lot of Assistance CURRENT -[facility] Mobility Raw Score: 18 CURRENT -[facility] Mobility Functional Limitation/Modifier: 46.58% Currently Impaired in [...] Consult: Discharge Planning Level(s) of Care Discussed: [facility] Patient and/or Agronomy Professor's Preferred Geographic Area for Discharge: [id number] Patient and/or Agronomy Professor's Preference for Providers to Include? [facility], [facility] and [facility] Patient and/or Agronomy Professor's Preference for Providers to Exclude? N/A Patient and/or Agronomy Professor's Discussion: Discussed referral process with the patient and/or customer assistance representative. Patient and/or customer assistance representative isagreeable to have placement referral initiated. Pt is medically ready for discharge. [facility] does not have any beds. Pt's secondchoice-[facility] is reviewing. Pt's third choice [facility] is able to accept. ARMEN Martinez Inlayer [phone] 09/27/23, 1449 CM called [facility] for an update on the status of the referral. Admissions states that they are still reviewing the referral and should have an answer on whether or not they can accept bytomorrow morning. ARMEN Martinez Inlayer [phone] * NYDIA Guzman - 09/27/2023 10:00 AM EST Discharge Planning Patient Assessment Admission Assessment Patient Assessment Completed: Initial Anticipated discharge disposition: Inpatient Rehab Facility Reason for Admission: Stroke work-up Is the patient able to participate in the assessment?: Yes Information source: Patient, Review of Medical Record Information Source Name/Contact: Good [phone] Demographics Verified and Updated: Yes Has the [...] Yes Name and Contact information: Barbara De Luna-[phone] Would you like to add additional adult children?: Yes Name and Contact information: Cee De LnuaRhrdnw-[phone] Referral to Social Work to Identify Legal [...] Is the patient from a facility or senior care?: No Patient lives with: Alone Living Environment: [...] services?: Yes Select Program, Services, Resources : [place] [facility] (Pt's daughter Barbara is Pt's aid 20 hours per week. Pt's CM is Adrianna Abrahamanna marie. Her phone number is [phone].) Does the patient have a Sleep Scientist or Coat Operator Insulator?: Yes Sleep Scientist or Coat Operator Insulator Agency, Name and Contact: Adrianna LeonardWsmkfcg-[phone] Does patient use DME? : walker, wheelchair, [...] consults?: Yes Select consult type: PT, OT, TECHNICIAN Does the patient's home require any home modifications for discharge? : No CM to recommend therapy or other consults? : No Medication Management Does the patient have prescription insurance coverage? : Yes Is the patient on Anticoagulation? : No [id number] [place] [address] - [address] [address] [employer] Chief Creative Officer Does the patient or customer assistance representative express financial concerns? : No Employed?: Disabled Coping/Stress Concerns about patient s coping and stress?: No Values and Beliefs Cultural or alevism practices that may impact discharge planning and/or [...] bedside. Pt is agreeable to discharging to IPR. Pt's [address] [place] [address] has no beds available until next week. Awaiting review of referral by Pt's2nd and 3rd choices. [facility]. Pt is medically ready for discharge. ARMEN Martinez Inlayer [phone] * Nguyễn Watson - 09/27/2023 9:57 AM [...] IADL History IADLs: needs assist Primary Language: Moroccan Home Management Skills: needs assist Medication Management: [...] Balance Skilled Intervention/Details: Completed functional mobility with INSPECTOR CIRCUITRY NEGATIVE MIN Ax2 and 2WW with MIN Ax1 Neuro: Sensation Overall Sensation: Intact Gross Coordination Gross Coordination: bilat UE intact Fine Motor Coordination Additional Documentation: Yes Fine Motor Coordination Left Hand Thumb/Finger Opposition Skills: normal performance Right Hand Thumb/Finger Opposition Skills: normal performance Skin and Edema: Skin Integrity Skin Integrity Description: WFL Edema Edema: none noted Mobility Assessment: Supine to Sit Mobility David Level: Supine->Sit: stand-by assist Bed Features/Set-up: Supine->Sit: Head of bed elevated Skilled Rationale: Positioning, Sequencing, Verbal cues Skilled Intervention/Details: Supine->Sit: Educated on log roll due to back pain Sit to Supine Mobility David Level: Sit->Supine: minimum assist (75% patient effort) Bed Features/Set-up: Sit->Supine: Flat, Use of bed rail Skilled Rationale: Positioning, Sequencing, Verbal cues, Tactile cues Skilled Intervention/Details: Sit->Supine: Required assist for BLE's and educated on log roll technique. Transfer Assessment: Sit to Stand Transfer David Level: Sit->Stand: minimum assist (75% patient effort) Assistive Device: Sit->Stand: gait belt Skilled Rationale: Positioning, Sequencing, Verbal cues, Cues for increased safety, Technique of activity Skilled Intervention/Details: Sit->Stand: x2 from EOB, x1 from armed chair Stand to Sit Transfer David Level: Stand->Sit: minimum assist (75% patient effort) Assistive Device: Stand->Sit: gait belt Skilled Rationale: Positioning, Hand placement, Sequencing, Verbal cues, Cues for increased safety Skilled Intervention/Details: Stand->Sit: Cues for controlled descent Functional Mobility: Functional Mobility David Level: Functional Mobility/Gait: minimum assist (75% patient effort) Physical Assist: Functional Mobility/Gait: chair follow (1 person) Assistive Device: Functional Mobility/Gait: gait belt (2 trials: 1 INSPECTOR CIRCUITRY NEGATIVE, 1 2WW) Functional Mobility Distance: Distance needed [...] Assessment Patient currently uses wheelchair?: No CURRENT -[facility] Daily Activity Inpatient Short Form Putting on/Taking Off Lower Body Clothin - A Little Assistance Bathin - A Little Assistance Toiletin - A Little Assistance Putting on/Taking Off Upper Body Clothin - A Little Assistance Groomin - A Little Assistance Eatin - No Assistance CURRENT [facility] Activity Raw Score: 19 CURRENT -[facility] Activity Functional Limitation/Modifier: 42.80% Currently Impaired in [...] (Moderate) Time Entry: 28 Evaluating Therapist: Nguyễn Watson, Occupational Therapy Student Additional Details: OT Co-Eval/Treatment [...] (detailed assessments w/several treatment options) Time In: 956 Time Out: 1025 Total [...] further questions. Name: Gypsy Robert RPH Phone: [phone] Date/Time: 09/26/2023 9:47 PM documented in this encounterSelect [facility] Plan of care note* Plan of Care [...] max UE ROM/Coordination/strength for ADLs. Outcome: Ongoing [facility]03-08-2024 Hospital course Narrative* Adam Pulido APRN-HIGH SCHOOL LIBRARY MEDIA SPECIALIST - 09/29/2023 8:09 AM EST Discharge Summary Name: Good De Luna Age: 58 y.o. Birthday: 1965 Admit Date: 09/26/2023 9:41 PM Discharge Date: 09/29/23 Discharge Time: 1300 Discharge Unit: 10 [facility] Admission Information Admitting Physician: Cristina Chan MD Discharge Information Discharge Physician: Dr. Cristina Chan Problem List Active Hospital Problems Diagnosis Developmental venous anomaly Resolved Hospital Problems No resolved problems to display. Brief Summary of Hospital Course for Discharge Summary: Dear Providers, We recently had the pleasure of taking care of Good De Luna at [facility]. As you well [...] you take each medicine. Include all prescription qadugpa-hcv-kesgngr medicines, vitamins, and supplements. Keep this list [...] plan your refills so that you can mushroom picker all your medicines at the same time. This can mean fewer trips to the drugstore. If we have prescribed you a new medication during your stay, please contact with your primary physician for refills Follow-up: Mathew Cobian MD [address] [facility] [id number] Follow up Neurosurgery Follow up Please call to schedule an appointment in 4-[address] Brothers[address] [address] documented in this encounterSelect [facility] Plan of care note* Plan of Care - Khadijah Rahman RN - 09/29/2023 2:51 AM EST Problem: Patient Care Overview Goal: Discharge Needs Assessment Outcome: Progressing Goal: Interdisciplinary Rounds/Family Conf Outcome: Progressing [facility]03-07-2024 Plan of care note* Plan of Care [...] (DVA) and Urine Cx reviewed (ATB d/c'd) [facility]03-07-2024 Plan of care note* Plan of Care [...] safely navigate home and community. Outcome: Progressing [facility]03-07-2024 Miscellaneous Notes* Telephone Encounter - Mathew Cobian MD - 09/28/2023 11:48 AM EST Noted Mathew Cobian MD * Telephone Encounter - Lissa Rich RN - 09/27/2023 3:10 PM EST Federica with [facility] calls to let provider know that patient was transferred to [facility] from [facility] ED yesterday for stroke like symptoms. She reports patient is doing well and stroke has been ruled out. Federica requests if we receive discharge summary to fax it to her at [phone]. Lissa Rich, RN documented in this encounterSheltering Arms Hospital03-07-2024 Plan of care note* Plan of [...] (reference Stroke (Ischemic) (Adult) CPG). Outcome: Progressing [facility]03-06-2024 Plan of care note* Plan of Care [...] safely navigate home and community. Outcome: Ongoing [facility]-20[facility] Plan of care note* Plan of Care [...] and safety during daily routine. [facility] Discharge instructions* Discharge Instructions* Herlinda Smith APRN-HIGH SCHOOL LIBRARY MEDIA SPECIALIST - 09/27/2023 8:41 AM EST Please take [...] may call your neurovascular doctors office at [phone], if you have questions between 8:30 am and 4:30 pm. - For off hours or the weekend you may call the office or the hospital forest fire equipment operator at and ask for the stroke resident outside production inspector to be paged. - If you have any questions or needs, please call Delilah MACE, RN, stroke program managerat [phone] Mon-Fri from 7-3. Additional Contacts: Evening and Weekend Contacts If you have questions or concerns during evening, weekend, or holiday hours, please call: -[facility] forest fire equipment operator at [phone]. -[facility] forest fire equipment operator at [phone] Ask the forest fire equipment operator to page the on-call doctor for Neurovascular service, they were responsible for your care while you were in the hospital. If you having an emergency, call 911. Case Management Office [phone] *In the event of an Emergency: If you have a physical or psychiatric emergency call 911 or go to your local emergency department. You should also call your outpatient provider's emergency number. Other reference numbers: [facility] Intake Office at 284-574-6216; [employer] at 618-847-0138; or Suicide Prevention Hotline at 586-447-2291. *Helpful phone numbers: Free Crisis Hotline: 4-317-745-TALK ( ) Suicide Hotline: 955.212.2290 Seniors Suicide Hotline: 547.957.1862 [facility] Youth: 740.265.8810 [facility] of [facility]: [phone] (free counseling) [employer] Access Hotline: 646-269-ZSGE (254-879-2771) 24-hour crisis text hotline: Text the word 4hope to 835-187 for crisis support. Texting this number is [...] you may qualify for Medicaid/public assistance: [facility] Department of Job and Family Services can now process barreto (TANF), food (SNAP) and Medicaid Applications over the phone. Please call [phone] (1442) and apply over the phone or apply online at [email or web address].[place].gov. Monday-Monday 8am-12pm noon. Medication Assistance Programs [employer] members can buy 100+ common prescriptions for FREE, $3 or $6. Annual membership is $36 for individuals and $72 for families (up to 6 people, including pets). Sign up online or enroll at your nearest pharmacy! -UNI5, web site can provide a significant number of coupons for medications at a much lower kaiser. [place] Department of Aging The Department of Aging administers programs and services to meet the needs of older [place]. Services and resources offered per county may include transportation, housekeeping, meals and nutrition, personal care, case management, safety monitoring, home medical equipment, legal services, financial management analyst, health and wellness, education, caregiver support, respite care, etc. Call to be connected to the [facility] agency on aging serving your community or visit aging.[place].gov/find-services. Request a consultation with a community resource expert at ltssi.age.[place].gov/ [facility] Stroke Support The [facility] Stroke Support Group is for stroke survivors, friends, and family members. Meets on the Monday of each month from 6:30pm-7:30pm at [facility] ([address]; [place] [address]). Contact Linda Verde, at [phone] or [email or web address]. If you are outside of the [facility], contact The [place] [employer]roke [employer] at www.strokeassociation.org or 7-205-1-stroke, or for supports groups in your area. [...] you take each medicine. Include all prescription ljkjnzk-uaj-aihfvlo medicines, vitamins, and supplements. Keep this list [...] plan your refills so that you can mushroom picker all your medicines at the same [...] breathing -Fever or chills documented in this [facility]03-06-2024 History and physical note* Cristina [...] LE, start antibitoics for UTI. Follow-up in [facility] in outpatient clinic. Follow-up with PCP in 1 week. Cristina Chan MD [facility]03-06-2024 History and physical note* Cristina Chan [...] week. Cristina Chan MD documented in this encounterOSSt. Vincent Hospital03-06-2024 Plan of care note* Plan of Care - Sanjay Ledesma MD - 09/27/2023 7:46 AM EST Neurosurgery Update: Consulted for [facility]. Briefly, Mr. Good De Luna is a 58 y.o. male w/ cerebral palsy, hypothyroidism, prostate cancer [place] 6 currently on surveillance p/w dizziness and [...] questions. Sanjay Ledesma MD, Neurosurgery NS2 ([id number]) [facility] Work Phone: 1(938) 464-817503-06-2024 Emergency department Note* Nela Blanco RN - 09/27/2023 12:14 AM EST Per MD Arredondo, ok to go to mri off tele. [facility]03-06-2024 Emergency department Note* Nela Blanco RN - 09/27/2023 12:14 AM EST Per MD Arredonod, ok to go to mri off tele. [...] 09/26/2023 9:57 PM Rate: normal Rhythm: normal [place]: normal Intervals: normal ST segments: normal T [...] hemorrhage, dissection, brain mass Clayton Burnham MD, [facility] Terrazzo Supervisor of Internal and Emergency Medicine Division of [...] still be present Evan Burnham MD 09/26/23 2689 * Nela Blanco RN - 09/26/2023 9:42 [...] nausea, vomiting,changes in bowel/bladder habits. 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 If they are not planning intervention, [facility] will take patinet on their service. ED Course as of 09/26/232223Sep 26, 20232217 Per Neuro: If NSGY isn't planning on any acute intervention or isn't planning on admitting, then he can come to [place] PCU under Dr. Chan Medications Lidocaine 1% [...] still occasionally occur. Alfredo Zhao MD Resident 09/26/23 5681 * NYDIA Casper - 09/26/2023 9:31 PM EST ED SW responded to stroke alert. Pt is a transfer from [facility] . SW called and confirmed with OSH that family waspresent there and aware of transfer [facility]. Patient Contacts (08/25) barbara De Luna Child [phone] Cee De Luna Child [phone] SW to remain available for any needs, once pt arrives to [facility] ED. ARMEN Minaya [phone] documented in this encounterOSSt. Vincent Hospital03-05-2024 NoteAcute Coronary Syndrome (ACS): Initial Evaluation and Management: [email or web address]%20Coronary%20Sy ndrome.pdf#search=[email or web address] [facility]03-05-2024 Consult note* Sebastian Roque MD - 09/26/2023 10:28 PM ESTAssociated Order(s): IP CONSULT TO SURGERY - NEURO Neurosurgery Consult Note Reason for Consultation: IPH HPI Mr. Good De Luna is a 58 y.o. male w/ cerebral palsy, hypothyroidism, prostate cancer [place] 6 currently on surveillance p/w dizziness and [...] ## neurosurgery coverage changes at [phone]; if 0530 or 0 has passed since original consult note placed, [...] participate in the care of this patient. [facility] Work Phone: 1(654) 489-592603-05-2024 Consult note* Sebastian Roque MD - 09/26/2023 10:28 PM ESTAssociated Order(s): IP CONSULT TO SURGERY - NEURO Neurosurgery Consult Note Reason for Consultation: IP HPI Mr. Good De Luna is a 58 y.o. male w/ cerebral palsy, hypothyroidism, prostate cancer [place] 6 currently on surveillance p/w dizziness and [...] LOC Questions (Provider) 0 filed on 09/26/2023 2140 NIH LOC Commands (Provider) 0 filed on [...] Days Peripheral IV Line - Single Lumen [id number] green median vein (underside of arm), left [...] no drift Left Leg: no drift Coordination: Lmvfdf-hu-flrn intact bilaterally. Sensation: intact to light touch throughout without extinction. Gait: not assessed. Laboratory Results Diagnostics/Procedures: Labs-CBC WBC/Hgb/Hct/Plts: 10.33/14.5/43.8/252 (09/25 2209) Labs-Chem 7([facility]) Bun/Creat/Cl/CO2/Glucose: 18/0.88/103/24/97 (09/25 2209) Na/K+/Phos/Mg/Ca: 135/4.1/3.4/1.9/9.5 [...] note does not necessarily reflect the individual outside production inspector. Please page with urgent questions, as [employer] Secure Chat is not a reliable method for urgent needs. Signed, Keisha Alcantara MD Neurology documented in this encounterSelect [facility] Physician Emergency department Note* Evan Burnham MD [...] 09/26/2023 9:57 PM Rate: normal Rhythm: normal [place]: normal Intervals: normal ST segments: normal T [...] hemorrhage, dissection, brain mass Clayton Burnham MD, [facility] Terrazzo Supervisor of Internal and Emergency Medicine Division of [...] still be present Evan Burnham MD 09/26/23 6333 [facility] Work Phone: 1(658) 991-156203-05-2024 Emergency department Note* Nela Blanco RN - [...] present on arrival for evaluation. Gluc 87 [facility]03-05-2024 Emergency department Note* Connie Savage RN - 09/26/2023 9:41 PM EST Bed: E036 Expected date: Expected time: Means of arrival: Comments: De Luna-nih 0 [facility]03-05-2024 Physician Emergency department Note* Alfredo Zhao MD [...] nausea, vomiting,changes in bowel/bladder habits. LKW: 3d COLLAR BASTER JUMPBASTING Deficits include: None Anticoagulation/Antiplatelets: None Prior strokes: [...] on admitting, then he can come to [place] PCU under Dr. Chan Medications Lidocaine 1% [...] occasionally occur. Alfredo Zhao MD Resident 09/26/232225 [facility] Work Phone: [phone]) 777-414803-05-2024 Emergency department Note* Gypsy NYDIA Sánchez - 09/26/2023 9:31 PM EST ED SW responded to stroke alert. Pt is a transfer from [facility] . SW called and confirmed with OSH that family waspresent there and aware of transfer to [facility]. Patient Contacts (08/25) barbara De Luna Child [phone] Cee De Luna Child [phone] SW to remain available for any needs, once pt arrives to [facility] ED. ARMEN Minaya [phone] [facility]03-05-2024 Consult note* Keisha Alcantara MD - [...] NIH Interval (Provider) daily filed on 09/26/2023 2140 NIH Level of Conciousness (Provider) 0 filed on 09/26/20230 NIH LOC Questions (Provider) 0 filed on 09/26/2023 2140 NIH LOC Commands (Provider) 0 filed on 09/26/2023 214 NIH Best Gaze (Provider) 0 filed on 09/26/2023 214 NIH Visual (Provider) 0 filed on 09/26/20232139 [...] 09/26/20232139 NIH Dysarthria (Provider) 0 filed on 09/26/2023 214 NIH Extinction and Inattention (Provider) 0 filed [...] no drift Left Leg: no drift Coordination: Mlvqnp-qn-vjzh intact bilaterally. Sensation: intact to light touch throughout without extinction. Gait: not assessed. Laboratory Results Diagnostics/Procedures: Labs-CBC WBC/Hgb/Hct/Plts: 10.33/14.5/43.8/252 (09/25 2209) Labs-Chem 7([facility]) Bun/Creat/Cl/CO2/Glucose: 18/0.88/103/24/97 (09/25 2209) Na/K+/Phos/Mg/Ca: 135/4.1/3.4/1.9/9.5 [...] note does not necessarily reflect the individual outside production inspector. Please page with urgent questions, as [facility] Secure Chat is not a reliable method for urgent needs. Signed, Keisha Alcantara MD Neurology [facility] Work Phone: [phone]) [phone] Miscellaneous Notes* Telephone Encounter - Gabby Roldan LPN - 09/15/2023 8:27 AM EST Patient notified of results, verbalizes understanding of instructions. Gabby Roldan LPN * Telephone Encounter - Gypsy Ayala APRN.CNP - 09/15/2023 7:33 AM EST Can you please call the patient and let him know that I reviewed his lab results. Vitamin D, B12, and folate were normal. TSH was elevated, I would recommend increasing Synthroid to175 mcg. Recheck labs in 8 weeks. Prescription was sent to [facility] in [place]. Please let me know if he has any questions. Thank you. The following approved medication requests have been transmitted electronically. Requested Prescriptions Signed Prescriptions Disp Refills levothyroxine (SYNTHROID) 175 mcg tablet 30 tablet 11 Sig: Take 1 tablet by mouth once daily. Take on empty stomach. For Thyroid. Authorizing Provider: GYPSY AYALA APRN.CNP documented in this encounterSheltering Arms Hospital02-22-2024 History of Present illness Narrative* Gypsy Ayala APRN.CNP - 09/14/2023 12:40 PM EST This [...] APRN.PATTIE This note was partially generated using Feathr voice recognition system. Note was reviewed for accuracy. There may be minor misspellings or grammar miscues with Feathr voice recognition. documented in this encounterSheltering Arms Hospital02-22-2024 Instructions* Patient Instructions* Gypsy Ayala APRN.CNP [...] or sooner as needed. documented in this encounterSheltering Arms Hospital02-02-2024 Miscellaneous Notes* Telephone Encounter - Laura Whaley Ma - 08/25/2023 11:39 AM EST Faxed. Laura Whaley Ma * Telephone Encounter - Mathew Cobian MD - 08/25/2023 11:34 AM EST Form done Mathew Cobian MD * Telephone Encounter - Mick Youngblood Ma - 08/25/2023 11:04 AM EST Type of form: Rx Request for Grab Bar, from [facility] Form received via fax When form is completed, Fax form to [phone] Form has been forwarded to Physician Desk: Dr. Mango Youngblood Ma documented in this encounterSheltering Arms Hospital02-02-2024 Miscellaneous Notes* Telephone Encounter - Mathew Cobian MD - 08/25/2023 11:36 AM EST Done in / phone note Mathew Cobian MD * Telephone Encounter - Mick Youngblood Ma - 08/17/2023 9:14 AM EST Office received form from [facility]. Member requesting a Grab bar. They are requesting an Rx for this item and recent OV notes. Printed recent OV notes with Brian Ahmadi CNP on 07/14/23. Please print Rx for Grab Bar. Once completed will fax back to [phone]. Mick Youngblood Ma documented in this encounterSheltering Arms Hospital01-08-2024 History of Present illness Narrative* Claire [...] 31, 2023 1:17 PM documented in this encounterSheltering Arms Hospital11-22-2023 Miscellaneous Notes* Telephone Encounter - Brian [...] 02/14/23 Levi Paniagua LPN documented in this encounterSheltering Arms Hospital09-25-2023 Miscellaneous Notes* Telephone Encounter - Laura Whaley Ma - 04/17/2023 1:14 PM EDT Office received fax from [facility] Dr. Conklin's office notifying officethat pt will not be accepted or seen by their office due to pt have to many no shows and cancellations. Laura Whaley Ma documented in this encounterSheltering Arms Hospital09-24-2023 Miscellaneous Notes* Telephone Encounter - Zoë Miller MA - 04/16/2023 7:50 AM EDT Patient has viewed results via Lightwire. Zoë Miller MA * Telephone Encounter - Zoë Miller MA - 04/14/2023 7:39 AM EDT Left VM instructing patient to return call to receive results. Zoë Miller MA * Telephone Encounter - Geovanna Steele APRN.CNP - 04/14/2023 7:19 AM EDT No significant growth continue treatment plan as discussed with provider. If symptoms worsen pleasefollow up with your primary care provider. documented in this encounterSheltering Arms Hospital09-20-2023 History of Present illness Narrative* Geovanna [...] Patient agreeable to treatment plan. Geovanna Steele APRN.HIGH SCHOOL LIBRARY MEDIA SPECIALIST documented in this encounterSheltering Arms Hospital09-20-2023 Miscellaneous Notes* Telephone Encounter - Ashlyn London RN - 04/12/2023 11:13 AM EDT Patient reports he has UTI. Reports he is having burning w/urination, feels like full bladder but hardly anything comes out, urgency, frequency, since last night. Patient unsure if he can find ride into clinic, but agreeable to try, and will go to for evaluation. documented in this encounterSheltering Arms Hospital09-06-2023 History of Present illness Narrative* Calli Morris - 03/29/2023 12:34 PM EDT POPULATION HEALTH NAVIGATION OUTREACH Action/[facility] [place] Support: Called pt to schedule an appt in Pain Management. Lvm for pt to call [phone] for scheduling. Patient Identified by Name and [...] 29, 2023 12:34 PM documented in this encounterSheltering Arms Hospital08-24-2023 Miscellaneous Notes* Telephone Encounter - Laura [...] advise, Uma Jett RN documented in this encounterSheltering Arms Hospital08-24-2023 Discharge summary Author Davy Dupree [facility] March 16, 2023 1:25pm Note Date/Time March 16, 2023 1: 25pm [facility] Physical Therapy [facility] [place] [address] / REHABILITATION SERVICES DISCHARGE SUMMARY MR#: [id number] Acct: [id number] Name: GOOD DE LUNA Rep #: [id number] : 1965 57 From: Davy Dupree DPT, OCS, CSCS Referring DrLinus: Dr. Mathew Cobian MD Status: REG RCR Insurance: MEDICARE PART A B [facility] Discharge Summary D/C summary: It has been my pleasure to treat GOOD DE LUNA referred by Dr. Mathew Cobian MD, with the diagnosis of CP, spinal stenosis for a total of 17 visit(s). Discharge Date: 03/16/23 Please see the following information for a summary of their discharge status. Subjective Subjective: I'm in pain. Might be the weather. 03/02 in [place], has pain managementreferral to / [...] please feel free to call me at [phone]. Thank you for the referral of thispatient. Sincerely, Davy Dupree, JAMIE, OCS, CSCS Balance/Gait/Functional tests Balance/Special Test Scores Lower Extremity Functional Score: 28 Improvement % Improvement: 75 <Electronically signed by Davy Dupree DPT, OCS, CSCS> 03/16/23 1325 CC: Dr. Mathew Cobian MD ~ EBG Signed [facility] Work Phone: 1(515) 945-707207-01-2023 Miscellaneous Notes* Telephone Encounter - Laura Whaley Ma - 01/21/2023 8:17 AM EDT Faxed. Laura Whaley Ma * Telephone Encounter - Mathew Cobian MD - 01/20/2023 5:13 PM EDT Form and letter done Mathew Cobian MD * Telephone Encounter - Mick Youngblood Ma - 01/12/2023 1:35 PM EDT Type of form: Health & Wellness Membership Medical Freeze from [employer] (see note on fax) Form received via fax When form is completed, Fax form to [phone] Form has been forwarded to Physician Desk: Dr. Cobian They are requesting letter as well. Mick Youngblood Ma * Telephone Encounter - Arlene Trammell LPN - 01/11/2023 12:34 PM EDT Pt called and the letter he is referring to is from 10-07-21 what was sent to [employer]. Pt had paid [employer] for 6 sessions that he has not been able to do and now if feels he can do. Again the letter is to [place] thru [facility]. Please advise pt thru MyChart or phone. Arlene Trammell LPN documented in this encounterSheltering Arms Hospital06-12-2023 Miscellaneous Notes* Telephone Encounter - Mick Youngblood Ma - 01/02/2023 8:12 AM EDT Letter mailed to pt notifying him we've attempted to reach him by phone and [employer] regarding letter. Asked for call back and to speak with Triage Nurse. Mick Youngblood Ma * Telephone Encounter - Mick Youngblood Ma - 12/27/2022 1:43 PM EDT [employer] message sent to pt notifying him we've [...] continue driving privileges. Letter to continue his [facility] membership to maintain fitness. Mick Youngblood Ma [...] Cobian MD * Telephone Encounter - Sofia Cid - 12/21/2022 2:43 PM EDT Jaquan is calling to ask Dr. Cobian to [facility] he paid for and was unable to keep for health reasons. Jaquan states that Dr. Chawla has done this for him before. Please call Jaquan when created at [phone] documented in this encounterSheltering Arms Hospital05-30-2023 History of Present illness Narrative* Brian Ahmadi APRN.HIGH SCHOOL LIBRARY MEDIA SPECIALIST - 12/20/2022 10:20 AM EDT Chief Complaint [...] needed. This note was partly generated using Feathr voice recognition dictation and may contain some misspelled or inaccurate words missed on review. documented in this encounterSheltering Arms Hospital05-04-2023 Miscellaneous Notes* Telephone Encounter - Laura Whaley Ma - 11/24/2022 2:35 PM EDT Form faxed back. Laura Whaley Ma * Telephone Encounter - Laura Whaley Ma - 11/24/2022 2:34 PM EDT Type of letter/form/fax request - Medical Necessity-CPAP supplies Form received from on fax floor and placed on MD desk (Dr. Cobian) for completion. Completed form needs to be faxed to [facility] at [phone]. Route to [place] when form completed for processing documented in this encounterSheltering Arms Hospital04-24-2023 Miscellaneous Notes* Addendum Note - Mathew [...] pt. Arlene Trammell LPN documented in this encounterSheltering Arms Hospital02-24-2023 Miscellaneous Notes* Telephone Encounter - Tyra [...] uses pharmacy on file. [facility] [address]. Patient would like a phone call to discuss commercial about a new medicine on market for Prostate Cancer Also when should patient follow up? documented in this encounterSheltering Arms Hospital12-30-2022 Miscellaneous Notes* Telephone Encounter - Mathew Cobian MD - 07/22/2022 5:01 PM EST OK to refill as ordered Mathwe Cobian MD * Telephone Encounter - Mick [...] Thank you. Uma Zamudio documented in this encounterSheltering Arms Hospital11-18-2022 Miscellaneous Notes* Telephone Encounter - Mick Youngblood Ma - 06/10/2022 11:58 AM EST Pt sent [employer] message with information below. Made aware new [...] daily Mathew Cobian MD documented in this encounterSheltering Arms Hospital11-15-2022 Instructions* Patient Instructions* Mick Youngblood Ma - 06/07/2022 3:03 PM EST Take Vitamin D3 2,000 to 5,000 international unit(s) daily over the counter. Schedule Rheumatology appt. Schedule Neurology appt as ordered. Check labs today. documented in this encounterSheltering Arms Hospital11-15-2022 History of Present illness Narrative* Mathew [...] was tested when he was at the [facility] for another flare up of Iritis. This [...] going through withdrawal. Pt has been in [facility] ED several times with admission. Notes [...] CPAP nightly. Does well. Gets supplies through [employer] Vit D - Daily Vitamin D3 50,000 [...] Past Histories independently gathered by the clinical accounting support specialist and the remaining scribed note accurately describes [...] PM. Mick Youngblood Ma documented in this encounterSheltering Arms Hospital09-28-2022 Miscellaneous Notes* Telephone Encounter - Uma Zamudio - 04/20/2022 11:13 AM EDT Appointment changed as directed. Uma Zamudio * Telephone Encounter - Tyra Yung LPN - 04/20/2022 11:05 AM EDT Okay to make today's visit a telephone visit instead. Please change. Patient is aware. Patient can be reached at [phone]. Tyra Yung LPN * Telephone Encounter - Sofia Moreira - 04/20/2022 10:44 AM EDT Pt would like to know if he could have a phone visit instead of a VV today. He has some transportation conflicts. documented in this encounterSheltering Arms Hospital09-27-2022 History of Present illness Narrative* Helder Sibley DO - 04/19/2022 4:57 PM EDT TELEPHONE VISIT 10 minutes PSA down to 1.45 DX: prostate cancer PLAN: Repeat PSA in 6 months. Helder Sibley DO documented in this encounterSheltering Arms Hospital08-11-2022 Miscellaneous Notes* Telephone Encounter - Fitz [...] and advise. Sofia Moreira documented in this encounterSheltering Arms Hospital08-10-2022 History of Present illness Narrative* Laura Whaley Tawanna - 03/02/2022 2:04 PM EDT TRANSITION CARE MANAGEMENT (TCM) INITIAL CONTACT Schedule Checker Outreach Provider Action/FYI: 14 day TCM He [...] might be hidden SUMMARY: -Pt discharged from [facility] on 03/01/22. -[facility] Chief Complaint: Substance Abuse Narrative Narrative: 56-year-old [...] is for him to follow-up at the [facility] outpatient. Upon conversation it sounds like [...] time. I strongly encouraged follow-up at the [facility] as an outpatient for alcohol abuse. We [...] for provider to review documented in this encounterSheltering Arms Hospital07-28-2022 Miscellaneous Notes* Telephone Encounter - Sofia Munoz - 02/17/2022 4:09 PM EDT Received verbal order for physical therapy orders [facility] [place], Sent to Dr. Ardon for signaturethen fax to [phone] documented in this encounterSheltering Arms Hospital06-27-2022 Miscellaneous Notes* Telephone Encounter - Sarah Edmondson LPN - 01/17/2022 8:07 AM EDT Left detailed message on VM. Sarah Edmondson LPN * Telephone Encounter - Hardik Spain DO - 01/15/2022 4:17 PM EDT Good news. Can let him know the area in the left pelvis bone is unchanged and therefore benign. Follow up as scheduled. Hardik Spain DO documented in this encounterSheltering Arms Hospital06-24-2022 History of Present illness Narrative* Hardik [...] performed concurrently and will be reported separately. Whizzer (topogram) images: No additional findings. IMPRESSION: No [...] appearance. No pericardial effusion or pericardial thickening. Whizzer (topogram) images: No additional findings. IMPRESSION: Sclerotic [...] Staff Review Reviewed by Lindsay Payne MD ([id number]) MPA IgG, Serum 700 - 1,600 mg/dL 1,150 MPA IgA, Serum 70 - 400 mg/dL 391 MPA IgM, Serum 40 - 230 mg/dL 113 [place] Free, Serum 3.30 - 19.40 mg/L 22.9 (H) Lambda Free, Serum 5.7 - 26.3 mg/L 18.8 K/L Ratio, Serum 0.26 - 1.65 1.22 MPA Result No M protein is identified. No M protein is identified. Staff Review ([facility]) Reviewed by Lindsay Payne MD ([id number]) WSR was 10 mm/hr on 05/20/2021 CRP [...] Abs Lymph 1.00 - 4.00 k/uL 1.80 [place]% % 7.1 Abs [place] <0.87 k/uL 0.78 [place]% % 0.9 Abs [...] bones. -Previously reviewed with Ortho oncology at [facility]. Follow-up plain film of the pelvis was [...] necessary. Hardik Spain DO documented in this encounterSheltering Arms Hospital06-24-2022 History of Present illness Narrative* Claire Larson, RT(R) - 01/14/2022 10:20 AM EDT Radiology Service [...] 14, 2022 10:32 AM documented in this encounterSheltering Arms Hospital06-03-2022 Miscellaneous Notes* Telephone Encounter - Mick Youngblood Ma - 12/24/2021 11:37 AM EDT Pt rx faxed to [facility] [employer] States that he's been receiving his supplies from there without issues. Faxed to [phone]. Mick Youngblood Ma * Telephone Encounter - Mick Youngblood Ma - 12/24/2021 8:12 AM EDT Sent [employer] message to pt notifying him of previous [...] information below from TE 08/30/21. Ramón from [facility] calling to state due to insurance and due to patient having 2 failed compliance periods, they are unable to provide supplies for patient. [facility]. Pt previously got supplies through [facility] from note back on 01/05/18. Mick Youngblood Ma documented [facility] Miscellaneous Notes* Telephone Encounter - Sofia Munoz - 12/22/2021 4:06 PM EDT Home health care plans have been fax to lashawn rutledge Attn_ uma Macias Rn at [phone] * Telephone Encounter - Sofia Munoz - 12/22/2021 3:52 PM EDT Received home health plan of care and certification paperwork from lashawn rutledge Sent to Dr. Ardon for review, fax back to [phone] documented in this encounterS[facility]05-23-2022 Miscellaneous Notes* Telephone Encounter - Brian [...] advise. Gabby Roldan LPN documented in this encounterSheltering [facility]05-21-2022 Miscellaneous Notes* Telephone Encounter - Merlyn [...] SYMPTOMS: Denies Protocols used: BLOOD PRESSURE - [id number] documented in this encounterSheltering [facility] Hospital05-06-2022 Miscellaneous Notes* Telephone Encounter - Mathew [...] notify patient. Indy Berumen documented in this encounterSheltering [facility] Hospital04-06-2022 Miscellaneous Notes* Telephone Encounter - Patricia Jeffers MA - 10/27/2021 10:24 AM EDT Type of letter/form/fax request - Home Health Certification and Plan of Care Form received from LashawnHimaria elena on 2C floor and placed on MD desk () for completion. Completed form needs to be faxed to [phone]. Route to TAWANNA when form completed for processing Patricia Jeffers MA documented in this encounterSheltering [facility] Hospital08-26-2021 History of Present illness Narrative* Juju Simpson RT(R) - 03/18/2021 12:30 PM EDT Radiology [...] 18, 2021 1:48 PM documented in this encounterSheltering Arms HospitalDischarge summary Author Jj Koch [facility] Note Date/Time April 07, 2025 1:44am [facility] Medical Records Department [address] [place] [address] Emergency Department Summary 04/07/25 MR#: [id number] Acct: [id number] Name: GOOD DE LUNA Rep #:[id number] : [id number] From: Jj Koch DO PCP: Dr. Mathew Cobian MD Status:RE G ER Location: ED HPI History of Present Illness Chief Complaint: ETOH Intox Informant: patient Narrative Narrative: Patient is a 59-year-old male with past medical history of anxiety as well as GERD and hypothyroidism. He states he recently broke up with his girlfriend andhis anxiety has worsened since that time. He states he has been drinking roughly 1/3 a bottle of bourbon daily for the last 7 days. He states that at baseline he does not drink daily. He states he may have a glass of liquor or a few beers over the weekend but is adamant that he does not drink on a daily basis. He states his last drink was roughly 10 hours prior to arrival. He denies any homicidal or suicidal ideation but he reports that despite drinking his anxiety has been elevated and secondary to this comes in for evaluation [facility] Medical History Alcohol abuse Anxiety History [...] complex 1 tab PO DAILY 02/27/2203/26 History levothyroxine 150 mcg tablet 150 mcg PO DAILY 11/05/24 Unknown History Allergy/AdvReac Type Severity Reaction Status Date / Time No Known Allergies Allergy Verified 04/06/25 22:18 Family History Other Cancer Diabetes Surgical History History of tonsillectomy H/O hand surgery Social History household members: other details: Roommate who does not help him cook or clean. Smoking Status: Former smoker alcohol intake: current alcohol intake frequency: 3 or more drinks per day Alcohol type: hard liquor ROS ROS ED Constitutional Constitutional ED: Denies chills or fever(s) Eyes Eyes: Denies change in vision ENT ENT ED: Denies sore throat Cardiovascular Cardiovascular: Denies chest pain Respiratory/Chest Respiratory/Chest: Denies cough or dyspnea Gastrointestinal Gastrointestinal: Reports nausea; Denies abdominal pain, diarrhea or vomiting Genitourinary Genitourinary ED: Denies dysuria Musculoskeletal Musculoskeletal: Denies myalgias Integumentary Denies rash Neurologic Neurologic: Denies headache(s) Psychiatric Psychiatric: Reports anxiety; Denies suicidal ideation or suicidal thoughts Hematologic/Lymphatic Hematologic/Lymphatic: Denies easy bleeding or easy bruising EXAM Physical Exam Const Vital Signs: 04/06/25 22:14 04/07/25 00:13 Temperature 98.2 F 98.1 F Temperature Source Oral Oral Pulse Rate 56 L 76 Respiratory Rate 16 16 Blood Pressure 129/81 H 130/77 H Blood Pressure Mean 97 94 Pulse Ox 97 98 Oxygen Delivery Method Room Air Room Air Positive well nourished, well developed and obese General Appearance ED: well developed; Negative for pallor Nutritional Appearance: obese HEENT Reports moist mucous membranes HEENT Narrative: Normocephalic atraumatic No tongue or cheek biting to suggest seizure activity No tongue or lip swelling no oral lesions no airway edema or compromise; no secondary findings in the posterior pharynx to suggest infection Eyes PERRL and EOMs intact bilaterally Eyes Narrative: There is mild scleral injection bilaterally consistent with history of alcohol use Pupils lower are equal reactive to light and accommodation Neck supple Resp normal respiratory effort and clear to auscultation bilaterally Cardio regular rate and regular rhythm GI non-tender, non-distended and no masses GI Narrative: Abdomen is soft nontender and nondistended with hyperactive bowel sounds. No voluntary guarding or rigidity or pulsatile mass Auscultation: hyperactive bowel sounds Palpation: soft Extremity normal to inspection Neuro oriented x3, CN's II-XII intact bilaterally and no sensory deficits noted Sensorium / Orientation: alert Motor Exam: strength 5/5 throughout Psych Psych Narrative: Patient has an anxious affect but no homicidal or suicidal ideation Mood & Affect: anxious Skin no rashes or lesions noted General Skin Exam: Negative for jaundice or pallor MDM MDM MDM Narrative Medical decision making narrative: Patient arrived to the ER with stable vitals. He reported drinking daily for the past 7 days but states that at baseline he is not a daily drinker and that he may only have a drink or 2 typically on a weekend. As he states that he doesnot drink daily at baseline and he is only been drinking daily for the last 7 days the chance of him progressing to alcohol withdrawal and DTs is extremely low and therefore I feel he does not need admitted for detox. In order to ensure that his drinking over the past 7 days has not led to acute kidney injuryor clinically significant electrolyte abnormality I did elect to perform basic laboratory studies. Also as he reports increased anxiety I do feel he would benefit from talking to crisis center. Patient's labs revealed a decreased bicarb and mildly elevated anion gap consistent with his recent binging of alcohol. Otherwise there is no clinically significant findings. The patient was hydrated with normal saline and given Protonix as well as Compazine and Ativan and Benadryl. The treatment did help reduce his symptoms. He was evaluated by crisis center and they agree that he does not meet criteria for inpatient treatment of his anxiety and as he is not have homicidal or suicidal ideation do not feel he needs emergent placement. As the patient is adamant he only drinks occasionally until this recent life stressor the chance for withdrawal is low and therefore I do not feel there is need for admission. The patient was advised he will need to continue his Ativan to help with his breakthrough anxiety regarding his recent life stressor but otherwise can follow-up with crisis center on an outpatient basis to discuss further interventions regarding his injuries anxiety. At this time as the patient's vitals are stable and his symptoms have improved and he has repeatedly stated he does not drink on a daily basis at baseline but only during this last few days based on his recent break-up my concern for progression to DTs and withdrawals is low Hank do not feel the need for admission based on this and he is otherwise safe for discharge History & Record Review Discussion w/independent historian: Patient Lab Data Attestation: I reviewed the patient's lab results. Labs: Laboratory Results - last 24 hr 04/06/25 04/06/25 04/07/25 22:25 22:55 00:25 WBC 9.4 RBC 4.80 Hgb 14.7 Hct 42.0 MCV 87.5 MCH 30.6 MCHC 35.0 RDW Std Deviation 46.5 H RDW Coeff of Ras 14.5 Plt Count 289 MPV 10.0 Immature Gran % (Auto) 0.300 Neut % (Auto) 76.8 H Lymph % (Auto) 15.2 L [place] % (Auto) 7.2 Eos % (Auto) 0.2 Baso % (Auto) 0.3 Absolute Neuts (auto) 7.2 Absolute Lymphs (auto) 1.43 Nucleated RBC % 0 Sodium 134 Potassium 4.0 Chloride 92 L Carbon Dioxide 20.7 L Anion Gap 21 H BUN 11 Creatinine 0.80 Estim Creat Clear Calc 110.46 Est GFR (MDRD) Non-Af 103 BUN/Creatinine Ratio 13.3 Glucose 95 Calcium 9.4 Magnesium 1.9 Total Bilirubin 0.61 Direct Bilirubin 0.29 AST 34 ALT 37 Alkaline Phosphatase 100 Total Protein 7.5 Albumin 4.4 Globulin 3.1 Lipase 29 Urine Opiates Screen NEGATIVE U Buprenorphine Qual NEGATIVE Ur Oxycodone Screen NEGATIVE Urine Methadone Screen NEGATIVE Urine Fentanyl Screen NEGATIVE Ur Barbiturates Screen NEGATIVE Ur Phencyclidine Scrn NEGATIVE Ur Amphetamines Screen NEGATIVE U Benzodiazepines Scrn PRESUMPTIVE POSITIVE Urine Cocaine Screen NEGATIVE U Cannabinoids Screen NEGATIVE Ethyl Alcohol 61.0 H Management Discussion w/another healthcare provider: Behavioral health Discharge Plan Triage Chief Complaint: ETOH Intox ED Provider: Jj Koch Dx/Rx/DC Orders Clinical Impression: Anxiety, Alcohol abuse, Hypothyroidism, Gastroesophageal reflux Instructions: Social Drinking vs Problem Drinking, Your Body's Response to Anxiety Prescriptions: No Action omeprazole 20 MG capsule 20 [...] mg PO Q8H PRN PRN (Reason: Anxiety) levothyroxine 150 mcg tablet 150 mcg PO DAILY Primary Care Provider: Mathew Cobian Referrals: Mathew Cobian MD [Primary Care Provider] - Activity Restrictions/Additional Instructions: Please follow-up with crisis center for reevaluation regarding your anxiety. You may need to take your Ativan on a more scheduled basis such as 2 or 3 times a day for the next few days to help control your symptoms. Return to the ER should you have any further concerns. Print Language: Moroccan Disposition Disposition: Home, Self Care What to do if you have Problems For any increased pain, shortness of breath, bleeding, nausea or vomiting, chestpain, or any unexpected problems, contact your Primary Care Provider. Call [facility] ([phone]) or report to the closest Emergency Room. Call 911 if necessary. 04/07/25 0144 <Electronically signed by Jj Koch DO> Cosigner Signature (if applicable): CC: Dr. Mathew Cobian MD ~ Signed [facility] Work Phone: Evaluation + Plan note No data available for this section [facility] Evaluation note* Diagnosis Sleep apnea, unspecified type- Primary documented in [facility] encounter [facility]* Diagnosis Abnormal x-ray of pelvis- Primary Nonspecific (abnormal) findings on radiological and other examination of abdominal area, including retroperitoneum documented in this encounter [facility]* Diagnosis Abnormal x-ray of pelvis Nonspecific (abnormal) findings on radiological and other examination of abdominal area, including retroperitoneum documented [facility] encounter [facility] noteNo assessment information availableWTrinity Health [facility] Work Phone: Evaluation note* Diagnosis Prostate cancer (HCC) Malignant neoplasm of prostate documented [facility] encounter [facility]* Diagnosis Malignant neoplasm of prostate (HCC)- Primary Malignant neoplasm of prostate documented [facility] this encounter [facility]* Diagnosis Cerebral palsy, unspecified type (HCC)- [...] to other disease documented [facility] encounter [facility]* Diagnosis Hypothyroidism, unspecified type- Primary documented in this encounter [facility]* Diagnosis Prostate cancer (HCC) Malignant neoplasm of prostate documented in this encounter [facility]* Diagnosis Hypothyroidism, unspecified type- Primary Vitamin D deficiency Unspecified vitamin D deficiency Alcohol use GERD without esophagitis Esophageal reflux documented in this encounter [facility] note* Diagnosis Cerebral palsy, unspecified type (HCC)- Primary Congenital diplegia (HCC) Congenital diplegia Hypothyroidism, unspecified type GERD without esophagitis Esophageal reflux Anxiety Anxiety state, unspecified JODEE (obstructive sleep apnea) Obstructive sleep apnea (adult) (pediatric) Prostate cancer (HCC) Malignant neoplasm of prostate Vitamin D deficiency Unspecified vitamin D deficiency Recurrent major depressive disorder, remission status unspecified (HCC) documented in this encounter [facility] note* Diagnosis Chronic bilateral low back pain with right-sided sciatica- Primary documented in this encounter [facility] note* Diagnosis Urinary frequency- Primary Prostatitis, acute Acute prostatitis documented in this encounter [facility] note* Diagnosis JODEE (obstructive sleep apnea)- Primary Obstructive sleep apnea (adult) (pediatric) Bilateral impacted cerumen Impacted cerumen Brain fog Hypothyroidism, unspecified type Vitamin D deficiency Unspecified vitamin D deficiency documented in this encounter [facility] note* Diagnosis Hypothyroidism, unspecified type- Primary documented in this encounter [facility] note* Diagnosis Developmental venous anomaly- Primary Congenital anomaly of the peripheral vascular system, unspecified site Developmental venous anomaly Congenital anomaly of the peripheral vascular system, unspecified site Pre-syncope Syncope and collapse documented in this encounter [facility]* Diagnosis Hospital discharge follow-up- Primary Other follow-up examination Screening for colon cancer Special screening for malignant neoplasms, colon Chronic bilateral low back pain with right-sided sciatica Dizziness Dizziness and giddiness Cerebral palsy, unspecified type (HCC) Recurrent major depressive disorder, remission status unspecified (HCC) Prostate cancer (HCC) Malignant neoplasm of prostate documented [facility] this encounter [facility]* Diagnosis Pain in right testicle- Primary Unspecified disorder of male genital organs Right groin pain Abdominal pain, right lower quadrant documented in this encounter [facility] note* Diagnosis Pain in right testicle Unspecified disorder of male genital organs documented in this encounter [facility] note* Diagnosis Hypothyroidism, unspecified type documented in this encounter [facility] note* Diagnosis Anxiety Anxiety state, unspecified documented [facility] this encounter [facility]* Diagnosis Hypothyroidism, unspecified type documented in this encounter [facility] note* Diagnosis Irritability- Primary Anxiety Anxiety state, unspecified Memory changes Memory loss Hypothyroidism, unspecified type Sensation of fullness in both ears Cerebral palsy, unspecified type ([facility]) Alcohol use documented in this encounter [facility]* Diagnosis GERD without esophagitis Esophageal reflux documented [facility] this encounter [facility]* Diagnosis Rash- Primary Rash and other nonspecific skin eruption documented [facility] this encounter [facility]* Diagnosis Prostate cancer (HCC) Malignant neoplasm of prostate documented [facility] this encounter [facility]* Diagnosis Hypothyroidism, unspecified type- Primary Recurrent major depressive disorder, remission status unspecified (HCC) MANNY (generalized anxiety disorder) Generalized anxiety disorder Memory loss documented [facility] this encounter [facility]* Diagnosis Dizziness and giddiness- Primary documented [facility] encounter [facility]* Diagnosis Recurrent major depressive disorder, remission status unspecified (HCC)- Primary MANNY (generalized anxiety disorder) Generalized anxiety disorder Hypothyroidism, unspecified type documented [facility] this encounter [facility]* Diagnosis Hypothyroidism, unspecified type- Primary documented in this encounter [facility] note* Diagnosis Hypothyroidism, unspecified type- Primary Memory loss Neck mass Swelling, mass, or lump in head and neck documented in this encounter [facility]* Diagnosis Hypothyroidism, unspecified type documented in this encounter [facility]* Diagnosis Pain Generalized pain documented [facility]* Diagnosis Diverticulitis- Primary Diverticulitis of colon (without mention of hemorrhage) Bloody stools Blood in stool Encounter for immunization Need for other specified prophylactic vaccination against single bacterial disease Diverticulitis- Primary Diverticulitis of colon (without mention of hemorrhage) Bloody stools Blood in stool documented [facility] this encounter [facility]* Diagnosis Prostate cancer (HCC)- Primary Malignant neoplasm of prostate Diverticulitis- Primary Diverticulitis of colon (without mention of hemorrhage) Bloody stools Blood in stool [facility]* Diagnosis Diverticulitis- Primary Diverticulitis of colon (without mention of hemorrhage) Bloody stools Blood in stool documented [facility]* Diagnosis Blood in stool- Primary Diverticulitis Diverticulitis of colon (without mention of hemorrhage) Bloody stools Blood in stool Rectal bleeding- Primary Hemorrhage of rectum and anus documented [facility] this encounter [facility]* Diagnosis Rectal bleeding- Primary Hemorrhage of rectum and anus Diverticulitis Diverticulitis of colon (without mention of hemorrhage) Bloody stools Blood in stool documented [facility] this encounter [facility]* Diagnosis Abrasion of lower leg, unspecified laterality, initial encounter- Primary documented in this encounter [facility] note* Diagnosis History of colonic polyps- Primary Personal history of colonic polyps documented [facility] this encounter [facility]* Diagnosis Confusion- Primary Unspecified psychosis documented [facility] this encounter [facility]* Diagnosis Congenital malformation- Primary Congenital anomaly, unspecified Venous anomaly Congenital anomaly of the peripheral vascular system, unspecified site documented in this encounter [facility] note* Diagnosis Hypothyroidism, unspecified type- Primary Recurrent major depressive disorder, remission status unspecified (HCC) Anxiety Anxiety state, unspecified Confusion Unspecified psychosis documented [facility] this encounter [facility]* Diagnosis Hypothyroidism, unspecified type- Primary documented in this encounter [facility] note* Diagnosis Hospital discharge follow-up- Primary Other follow-up examination Closed fracture of proximal end of right fibula, unspecified fracture morphology, sequela Prostate cancer (HCC) Malignant neoplasm of prostate documented [facility] this encounter [facility]* Diagnosis Other closed fracture of proximal end of right fibula, initial encounter documented [facility] this encounter [facility]* Diagnosis Tobacco abuse Tobacco use disorder documented [facility]* Diagnosis Other closed fracture of proximal end of right fibula, initial encounter- Primary Other closed fracture of proximal end of right fibula, initial encounter documented in this encounter [facility]* Diagnosis Other closed fracture of proximal end of right fibula, initial encounter- Primary documented in this encounter [facility]* Diagnosis Other closed fracture of proximal end of right fibula with routine healing, subsequent encounter- Primary documented in this encounter [facility]* Diagnosis Other closed fracture of proximal end of right fibula, initial encounter documented in this encounter [facility]* Diagnosis Prostate cancer (HCC) Malignant neoplasm of prostate documented in this encounter [facility]* Diagnosis Sore throat- Primary Acute pharyngitis [...] Anxiety state, unspecified [facility] Blood in stool- Primary Diverticulitis Diverticulitis of colon (without mention of hemorrhage) Fatigue, unspecified type Low energy Chronic bilateral low back pain with right-sided sciatica Hypothyroidism, unspecified type- Primary Recurrent major depressive disorder, remission status unspecified Anxiety Anxiety state, unspecified [facility] Diagnosis Sore throat- Primary Acute pharyngitis Allergic rhinitis, unspecified seasonality, unspecified trigger [facility]* Diagnosis Thrush- Primary Candidiasis of mouth [facility] Diagnosis Anxiety Anxiety state, unspecified [facility]* Diagnosis Sleep apnea, unspecified type GERD without esophagitis Esophageal reflux [facility] Diagnosis Obstructive sleep apnea syndrome- Primary Obstructive sleep apnea (adult) (pediatric) Bilateral impacted cerumen Impacted cerumen [facility] this [facility]* Diagnosis Orthopnea- Primary Bilateral impacted cerumen Impacted cerumen Orthopnea [facility]* Diagnosis [facility]opnea [facility] Discharge instructionsAdditional Instructions Your workup today is most consistent with peripheral vertigo. Please stop your lorazepam and begin using the Valium that was prescribed as this will better help to control your symptoms. Stay well-hydrated and continue your other medications as directed. Return [facility] the ER should [facility] have [facility] Work Phone: Hospital Discharge instructionsAdditional Instructions Please continue with the nystatin that was prescribed by your family doctor to add the medications from the ER to help resolve symptoms and control pain. Return to the ER should you have any further concerns. It will typically take 3 to 5 days for symptom [facility] Work Phone: Hospital Discharge instructionsAdditional Instructions Please follow-up with crisis center for reevaluation regarding your anxiety. You may need to take your Ativan on a more scheduled basis such as 2 or 3 times a day for the next few days to help control your symptoms. Return to the ER should you have any further concerns. [facility] Work Phone: Reason for referral (narrative)* Diagnostic Procedure Only (Routine) - Authorized Specialty Diagnoses / Procedures Referred By Contac t Referred To Contact XR IMAGING Diagnoses Abnormal x-ray of pelvis Procedures XR PELVIS 1V AP RADIOLOGIC EXAMINATION PELVIS 1/2 VIEWS Hardik Spain, DO [address] [place] [address] Xr Imaging Referral ID Status Reason Start Date Expiration Date Visits Requested Visits Authorized [id number] Authorized Auto-Generat ed Referral 01/14/2022 02/13/2023 1 1 [facility] for referral (narrative)* Diagnostic Procedure Only (Routine) - Closed Specialty Diagnoses / Procedures Referred By Contac t Referred To Contact XR IMAGING Diagnoses Abnormal x-ray of pelvis Procedures XR PELVIS 1V AP RADIOLOGIC EXAMINATION PELVIS 1/2 VIEWS Hardik Spain, DO [address] [place] [address] Xr Imaging Referral ID Status Reason Start Date Expiration Date V isits Requested Visits Authorized [id number] Closed Auto-Generate d Referral 10/13/2021 11/12/2022 1 1 [facility] for referral (narrative)* Consultation (Routine) - New Request Specialty Diagnoses / Procedures Referred By Contac t Referred To Contact Neurologic Surgery Diagnoses Developmental venous anomaly Herlinda Smith, RETAIL SALES SPECIALIST-[employer] MEDIA SPECIALIST [address] [place] [address] Referral ID Status Reason Start Date Expiration Date V isits Requested Visits Authorized [id number] New Request 09/28/2023 10/22/2024 1 1 Electronically signed by Herlinda Smith RETAIL SALES SPECIALIST-[employer] MEDIA SPECIALIST at 09/28/2023 6:30 AM EST * Radiology (Emergency) - New Request Specialty Diagnoses / Procedures Referred By Contac t Referred To Contact Procedures ECG Cristina Chan MD [address] [place] [address] Referral ID Status Reason Start Date Expiration Date V isits Requested Visits Authorized [id number] New Request 09/27/2023 10/21/2024 1 1 * (Routine) Specialty Diagnoses / Procedures Referred By Contac t Referred To Contact [address] [place] [address] Referral ID Status Reason Start Date Expiration Date Visits Re quested Visits Authorized * Unlisted Procedure Code (Routine) - New Request Specialty Diagnoses / Procedures Referred By Contac t Referred To Contact Procedures DVT/VTE RISK ASSESSMENT Cristina Chan MD [address] [facility] [place] [address] Referral ID Status Reason Start Date Expiration Date V isits Requested Visits Authorized [id number] New Request 09/27/2023 10/21/2024 1 1 * Radiology (Emergency) - New Request Specialty Diagnoses / Procedures Referred By Contac t Referred To Contact Procedures ECG Jacqui Ron MD [address] [address] Referral ID Status Reason Start Date Expiration Date V isits Requested Visits Authorized [id number] New Request 09/26/2023 10/20/2024 1 1 * Radiology (Emergency) - New Request Specialty Diagnoses / Procedures Referred By Contac t Referred To Contact Procedures ECG Evan Burnham MD [address] [facility] [address] [place] [address] Referral ID Status Reason Start Date Expiration Date V isits Requested Visits Authorized [id number] New Request 09/26/2023 10/20/2024 1 1 * Unlisted Procedure Code (Routine) - New Request Specialty Diagnoses / Procedures Referred By Contac t Referred To Contact Procedures NO PHARMACOLOGICAL DVT PROPHYLAXIS Annette Santoyo APRN-CNP [address] [place] [address] Referral ID Status Reason Start Date Expiration Date V isits Requested Visits Authorized [id number] New Request 09/27/2023 10/21/2024 1 1 * Unlisted Procedure Code (Routine) - New Request Specialty Diagnoses / Procedures Referred By Contac t Referred To Contact Procedures DVT/VTE RISK ASSESSMENT Annette Santoyo APRN-CNP [address] [place] [address] Referral ID Status Reason Start Date Expiration Date V isits Requested Visits Authorized [id number] New Request 09/27/2023 10/21/2024 1 1 * Radiology (Routine) - New Request Specialty Diagnoses / Procedures Referred By Contac t Referred To Contact Procedures ECG Annette Santoyo APRN-CNP [address] [place] [phone] Referral ID Status Reason Start Date Expiration Date V isits Requested Visits Authorized [id number] New Request 09/27/2023 10/21/2024 1 1 [facility] for referral (narrative)* Diagnostic Procedure Only (Urgent) - Closed Specialty Diagnoses / Procedures Referred By Contac t Referred To Contact US IMAGING Diagnoses Pain in right testicle Procedures US SCROTUM AND CONTENTS US SCROTUM & CONTENTS Barbara Quarles APRN.[employer] MEDIA SPECIALIST [address] [place] [address] [place] [address] Referral ID Status Reason Start Date Expiration Date V isits Requested Visits Authorized [id number] Closed Auto-Generate d Referral 11/01/2023 11/30/2024 1 1 [facility] for referral (narrative)* Diagnostic Procedure Only (Urgent) - Closed Specialty Diagnoses / Procedures Referred By Contac t Referred To Contact US IMAGING Diagnoses Pain in right testicle Procedures US SCROTUM AND CONTENTS US SCROTUM & CONTENTS Barbara Quarles APRN.[employer] MEDIA SPECIALIST [address] [place] [address] [place] [address] Referral ID Status Reason Start Date Expiration Date V isits Requested Visits Authorized [id number] Closed Auto-Generate d Referral 11/01/2023 11/30/2024 1 1 [facility] for referral (narrative)* Diagnostic Procedure Only (Routine) - Authorized Specialty Diagnoses / Procedures Referred By Contac t Referred To Contact US IMAGING Diagnoses Neck mass Procedures US HEAD/NECK SOFT TISSUE OTHER US SOFT TISSUE HEAD & NECK REAL TIME IMGE Gypsy Guillory APRN.[employer] MEDIA SPECIALIST [address] [place] [address] [place] [address] Referral ID Status Reason Start Date Expiration Date Visits Requested Visits Authorized [id number] Authorized Auto-Generat ed Referral 04/17/2024 05/17/2025 1 1 [facility] for referral (narrative)* Diagnostic Procedure Only (Routine) - Closed Specialty Diagnoses / Procedures Referred By Contac t Referred To Contact XR IMAGING Diagnoses Pain Procedures XR HIP BILAT 5V PEL/AP/LAT EACH HIP RADEX HIPS BILATERAL WITH PELVIS MINIMUM 5 VIEWS Gerardo Lopez, KEILA [address] [address] Xr Imaging [facility] Referral ID Status Reason Start Date Expiration Date V isits Requested Visits Authorized [id number] Closed Auto-Generate d Referral 03/15/2021 04/14/2022 1 1 [facility] for referral (narrative)* Outpatient Procedure (Routine) - Authorized Specialty Diagnoses / Procedures Referred By Contac t Referred To Contact [facility] Diagnoses Diverticulitis Bloody stools Procedures COLONOSCOPY DIAGNOSTIC COLONOSCOPY FLX DX W/COLLJ SPEC WHEN PFGilson Giraldo, DO [address] [place] [address] [facility] [place] [phone] Referral ID Status Reason Start Date Expiration Date Visits Requested Visits Authorized [id number] Authorized Auto-Generat ed Referral 05/08/2025 1 1 [facility] for referral (narrative)* Outpatient Procedure (Routine) - Closed Specialty Diagnoses / Procedures Referred By Contac t Referred To Contact [facility] Diagnoses Diverticulitis Bloody stools Procedures COLONOSCOPY DIAGNOSTIC COLONOSCOPY FLX DX W/COLLJ SPEC WHEN PFGilson Giraldo, DO [address] [place] [address] [facility] [place] [phone] Referral ID Status Reason Start Date Expiration Date V isits Requested Visits Authorized [id number] Closed Auto-Generate d Referral 05/08/2024 05/08/2025 1 1 [facility] for referral (narrative)* Diagnostic Procedure Only (Routine) - Closed Specialty Diagnoses / Procedures Referred By Contac t Referred To Contact XR IMAGING Diagnoses Other closed fracture of proximal end of right fibula, initial encounter Procedures XR TIBIA FIBULA 2V AP/LAT RIGHT RADIOLOGIC EXAMINATION TIBIA & FIBULA 2 VIEWS Tammie Walters PA-C [address] [place] [address] [place] [address] Referral ID Status Reason Start Date Expiration Date V isits Requested Visits Authorized [id number] Closed Auto-Generate d Referral 07/29/2024 08/28/2025 1 1 [facility] for referral (narrative)* Diagnostic Procedure Only (Routine) - New Request Specialty Diagnoses / Procedures Referred By Adenike ferguson Referred To Contact XR IMAGING Diagnoses Other closed fracture of proximal end of right fibula, initial encounter Procedures XR TIBIA FIBULA 2V AP/LAT RIGHT RADIOLOGIC EXAMINATION TIBIA & FIBULA 2 VIEWS Tammie Walters PA-C [address] [place] [address] Xr Imaging [facility] Referral ID Status Reason Start Date Expiration Date Visits Requested Visits Authorized [id number] New Request Auto-Generat ed Referral 08/20/2024 09/19/2025 1 1 [facility] for referral (narrative)No reason for referral information availableWTr[facility] Work Phone: [facility] N[facility]* Diagnostic Procedure Only (Routine) - Closed Specialty Diagnoses / Procedures Referred By Adenike t Referred To Contact XR IMAGING Diagnoses Abnormal x-ray of pelvis Procedures XR PELVIS 1V AP RADIOLOGIC EXAMINATION PELVIS 1/2 VIEWS Hardik Spain DO [address] [place] [address] Xr Imaging Referral ID Status Reason Start Date Expiration Date V isits Requested Visits Authorized [id number] Closed Auto-Generate d Referral 10/13/2021 11/12/2022 1 1 [facility] for visit Narrative* Diagnostic Procedure Only (Urgent) - Closed Specialty Diagnoses / Procedures Referred By Adenike t Referred To Contact US IMAGING Diagnoses Pain in right testicle Procedures US SCROTUM AND CONTENTS US SCROTUM & CONTENTS Barbara Quarles, RETAIL SALES SPECIALIST.[employer] MEDIA SPECIALIST [address] [place] [address] Us Imaging [facility] Referral ID Status Reason Start Date Expiration Date V isits Requested Visits Authorized [id number] Closed Auto-Generate d Referral 11/01/2023 11/30/2024 1 1 [facility] for visit Narrative* Outpatient Procedure (Routine) - Closed Specialty Diagnoses / Procedures Referred By Adenike t Referred To Contact [facility] Diagnoses Diverticulitis Bloody stools Procedures COLONOSCOPY DIAGNOSTIC COLONOSCOPY FLX DX W/COLLJ SPEC WHEN PFRMD Gilson Bar, DO [address] [place] [address] [facility] [place] [address] [place] [phone] Referral ID Status Reason Start Date Expiration Date V isits Requested Visits Authorized [id number] Closed Auto-Generate d Referral 05/08/2024 05/08/2025 1 1 [facility] for visit Narrative* Diagnostic Procedure Only (Routine) - Closed Specialty Diagnoses / Procedures Referred By Contac t Referred To Contact XR IMAGING Diagnoses Other closed fracture of proximal end of right fibula, initial encounter Procedures XR TIBIA FIBULA 2V AP/LAT RIGHT RADIOLOGIC EXAMINATION TIBIA & FIBULA 2 VIEWS Vetovitz, Tammie, PA-C [address] [place] [address] Xr Imaging [facility] Referral ID Status Reason Start Date Expiration Date V isits Requested Visits Authorized [id number] Closed Auto-Generate d Referral 07/29/2024 08/28/2025 1 1 [facility] for visit Narrative* Diagnostic Procedure Only (Routine) - Closed Specialty Diagnoses / Procedures Referred By Contac t Referred To Contact XR IMAGING Diagnoses Other closed fracture of proximal end of right fibula, initial encounter Procedures XR TIBIA FIBULA 2V AP/LAT RIGHT RADIOLOGIC EXAMINATION TIBIA & FIBULA 2 VIEWS Vetovitz, Tammie, PA-C [address] [place] [address] [place] [address] Referral ID Status Reason Start Date Expiration Date V isits Requested Visits Authorized [id number] Closed Auto-Generate d Referral 08/20/2024 09/19/2025 1 [facility]/CT (Routine) - Closed Specialty Diagnoses / Procedures Referred By Contac t Referred To Contact MR IMAGING Diagnoses Prostate cancer (HCC) Procedures MRI PROSTATE WO/W IVCON MRI PELVIS W/O & W/CONTRAST MATERIAL Raphael Calderon Jr., MD [address] [place] [address] Phone: tel: fax: [place] [address] Referral ID Status Reason Start Date Expiration Date V isits Requested Visits Authorized [id number] Closed Auto-Generate d Referral 03/12/2024 04/11/2025 1 1 [facility] Summary Purpose Family History No Family History Records Found Relationship Condition Age at Onset Recorded Date/T сергей Not Specified Diabetes mellitus Unknown Relationship Condition Age at Onset Recorded Date/T сергей Not Specified Diabetes mellitus Unknown Malignant neoplasm Unknown Advance Directives No Advanced Directives Records FoundDocuments on File Type Date 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 Directive(s) Advance Directive(s) 09/22/2021 12:25 PM Advance Directive(s) 09/07/2021 11:52 AM Advance Directive(s) 02/09/2019 9:49 PM Documents on File Type Date 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 Directive(s) Advance Directive(s) 09/22/2021 12:25 PM Advance Directive(s) 09/07/2021 11:52 AM Advance Directive(s) 02/09/2019 9:49 PM Advance Directive Response Recorded Date/ Time Advance Directives No March 12:14pm Living Will No February 27, 2022 12:43pm Power of Hand Stapler No February 27 12:43pm Advance Directive Response Recorded Date/ Time Advance Directives No March 12:14pm Living Will No February 27, 2022 6:01pm Power of Hand Stapler No February 27 6:01pm Latest Code Status on File Code Status Date Activated Date Inactivated Comments Full Code 09/27/2023 12:30 AM Advance Directive Response Recorded Date/ Time Living Will No July 22, 024 7:04pm Do you have a Healthcare Power of Hand Stapler? No July 22, 2024 7:04pm Living Will No November 05, 2024 8:19pm Do you have a Healthcare Power of Hand Stapler? No November 05, 2024 8:19pm Advance Directives No March 12:14pm Advance Directive Response Recorded Date/ Time Do you have a Healthcare Power of Hand Stapler? No January 20, 2025 11:30pm Living Will No November 05, 2024 8:19pm Do you have a Healthcare Power of Hand Stapler? No November 05, 2024 8:19pm Advance Directives No March 12:14pm Advance Directive Response Recorded Date/ Time Do you have a Healthcare Power of Hand Stapler? No January 20, 2025 11:30pm Living Will No November 05, 2024 8:19pm Do you have a Healthcare Power of Hand Stapler? No November 05, 2024 8:19pm Do you have a Healthcare Power of Hand Stapler? No January 29, 2025 10:51pm Advance Directives No March 12:14pm Advance Directive Response Recorded Date/ Time Do you have a Healthcare Power of Hand Stapler? No January 20, 2025 11:30pm Do you have a Healthcare Power of Hand Stapler? No April 06, 2025 10:22pm Do you have a Healthcare Power of Hand Stapler? No January 29, 2025 10:51pm Advance Directives [...] 4pm THRUSH January 29, 2025 9:00p m Chief Complaint Admit Date DIZZINESS January 20, 2025 10:5 4pm THRUSH January 29, 2025 9:00p m detox April 06, 2025 10:12pm Reason for Referral Specialty Diagnoses / Procedures Referred By Contac t Referred To Contact Neurology Diagnoses Cerebral palsy, unspecified type (HCC) Procedures CONSULT TO NEUROLOGY OFFICE/OUTPATIENT [facility] 60-74 MINUTES Mathew Cobian MD [address] [place] [address] Referral ID Status Reason Start Date Expiration Date Visits Requested Visits Authorized [id number] Authorized PCP Requested Referral 2 06/07/2023 1 1 Specialty Diagnoses / Procedures Referred By Contac t Referred To Contact Rheumatology Diagnoses HLA B27 (HLA B27 positive) Procedures CONSULT TO RHEUM/IMMUN DISEASE OFFICE/OUTPATIENT [facility] 60-74 MINUTES Mathew Cobian MD [address] [place] [address] Referral ID Status Reason Start Date Expiration Date Visits Requested Visits Authorized [id number] Authorized PCP Requested Referral 2 06/07/2023 1 1 Specialty Diagnoses / Procedures Referred By Contac t Referred To Contact Pain Management Diagnoses Chronic bilateral low back pain with right-sided sciatica Procedures CONSULT TO PAIN MGT OFFICE/OUTPATIENT [facility] 60-74 MINUTES Mathew Cobian MD [address] [place] [address] Referral ID Status Reason Start Date Expiration Date Visits Requested Visits Authorized [id number] Authorized PCP Requested Referral 03/16/2023 03/15/2024 1 1 Specialty Diagnoses / Procedures Referred By Contac t Referred To Contact Diagnoses JODEE (obstructive sleep apnea) Procedures CONSULT TO SLEEP MEDICINE - ADULT OFFICE/OUTPATIENT [facility] 60 MINUTES Gypsy Ayala APRN.CNP [address] [place] [address] Referral ID Status Reason Start Date Expiration Date Visits Requested Visits Authorized [id number] Authorized PCP Requested Referral 09/14/2023 09/13/2024 1 1 Specialty Diagnoses / Procedures Referred By Contac t Referred To Contact Ent - Otolaryngology Diagnoses Dizziness Procedures CONSULT TO ENT OFFICE/OUTPATIENT [facility] 60 [place] [address] [place] [id number] Referral ID Status Reason Start Date Expiration Date Visits Requested Visits Authorized [id number] Authorized PCP Requested Referral 10/17/2023 10/16/2024 1 1 Specialty Diagnoses / Procedures Referred By Contac t Referred To Contact [facility] Diagnoses Chronic bilateral low back pain with right-sided sciatica Cerebral palsy, unspecified type (HCC) Procedures CONSULT TO PHYSICAL THERAPY PHYSICAL THERAPY EVALUATION HIGH COMPLEX 45 MINS Mathew Cobian MD [address] [place] [address] [facility] [place] [address] [place] [address] Referral ID Status Reason Start Date Expiration Date Visits Requested Visits Authorized [id number] Authorized PCP Requested Referral Auto-Generate d Referral 10/17/2023 10/16/2024 99 99 Specialty Diagnoses / Procedures Referred By Contac t Referred To Contact Pain Management Diagnoses Chronic bilateral low back pain with right-sided sciatica Procedures CONSULT TO PAIN MGT OFFICE/OUTPATIENT [facility] MDM 60 MINUTES Mathew Cobian MD [address] [place] [address] Referral ID Status Reason Start Date Expiration Date Visits Requested Visits Authorized [id number] Authorized PCP Requested Referral 10/17/2023 10/16/2024 1 1 Specialty Diagnoses / Procedures Referred By Contac t Referred To Contact General Surgery Diagnoses Screening for colon cancer Procedures CONSULT TO GENERAL SURGERY OFFICE/OUTPATIENT [facility] MDM 60 MINUTES Mathew Cobian MD [address] [place] [address] Referral ID Status Reason Start Date Expiration Date Visits Requested Visits Authorized [id number] Authorized PCP Requested Referral 10/17/2023 10/16/2024 1 1 Specialty Diagnoses / Procedures Referred By Contac t Referred To Contact Neurology Diagnoses Memory changes Procedures CONSULT TO NEUROLOGY OFFICE/OUTPATIENT [facility] MDM 60 MINUTES Gypsy Ayala APRN.CNP [address] [place] [address] Referral ID Status Reason Start Date Expiration Date Visits Requested Visits Authorized [id number] Authorized PCP Requested Referral 12/14/2023 12/13/2024 1 1 Specialty Diagnoses / Procedures Referred By Contac t Referred To Contact MR IMAGING Diagnoses Prostate cancer (HCC) Procedures MRI PROSTATE WO/W IVCON MRI PELVIS W/O & W/CONTRAST MATERIAL Raphael Calderon Jr., MD [address] [place] [address] [place] [address] Referral ID Status Reason Start Date Expiration Date Visits Requested Visits Authorized [id number] Authorized Auto-Generat ed Referral 03/12/2024 04/11/2025 1 1 Specialty Diagnoses / Procedures Referred By Contac t Referred To Contact Ent - Otolaryngology Diagnoses Dizziness and giddiness Procedures CONSULT TO ENT OFFICE/OUTPATIENT [facility] 60 MINUTES Brian Ahmadi APRN.[employer] MEDIA SPECIALIST [address] [place] [address] Referral ID Status Reason Start Date Expiration Date Visits Requested Visits Authorized [id number] Authorized PCP Requested Referral 04/04/2024 04/04/2025 1 1 Specialty Diagnoses / Procedures Referred By Contac t Referred To Contact General Surgery Diagnoses Diverticulitis Bloody stools Procedures CONSULT TO GENERAL SURGERY OFFICE/OUTPATIENT [facility] 60 MINUTES Brian Ahmadi, KALEB.[employer] MEDIA SPECIALIST [address] [place] [address] Referral ID Status Reason Start Date Expiration Date Visits Requested Visits Authorized [id number] Authorized PCP Requested Referral 04/30/2024 04/30/2025 1 1 Specialty Diagnoses / Procedures Referred By Contac t Referred To Contact Neurosurgery Diagnoses Confusion Procedures CONSULT TO NEUROSURGERY OFFICE/OUTPATIENT [facility] 60 MINUTES Devi Cisse MD [address] [place] [address] Referral ID Status Reason Start Date Expiration Date Visits Requested Visits Authorized [id number] Authorized PCP Requested Referral 06/03/2025 1 1 Specialty Diagnoses / Procedures Referred By Contac t Referred To Contact [facility] Diagnoses Confusion Procedures EPIL EEG ROUTINE ELECTROENCEPHALOGRAM REC COMA/SLEEP ONLY Devi Cisse MD [address] [place] [address] [facility] [place] [address] [place] [address] Referral ID Status Reason Start Date Expiration Date Visits Requested Visits Authorized [id number] New Request Auto-Generat ed Referral 4 06/03/2025 1 1 Additional Source Comments (unrecognized sect ion and content) No Status Records FoundNo Status Records FoundNo Status Records FoundNo Status Records FoundNo Status Records FoundNo Status Records FoundNo Status Records FoundNo Status Records Found INFORMATION SOURCE (unrecogn ized section and content) DATE CREATED AUTHOR 06/28/2019 [facility] DATE CREATED AUTHOR AUTHOR'S ORGANIZ ATION 10/08/2023 [facility] DATE CREATED AUTHOR AUTHOR'S ORGANIZ ATION 10/12/2023 [facility] DATE CREATED AUTHOR AUTHOR'S ORGANIZ ATION 05/16/2024 [facility] DATE CREATED AUTHOR AUTHOR'S ORGANIZ ATION 08/02/2024 [facility] DATE CREATED AUTHOR AUTHOR'S ORGANIZ ATION 11/02/2024 [facility] DATE CREATED AUTHOR AUTHOR'S ORGANIZ ATION 04/05/2025 [facility] DATE CREATED AUTHOR AUTHOR'S ORGANIZ ATION 04/07/2025 [facility] Source Comments (unrecognize d section and content) In the event this informatio n is protected by the Federal Confidentiality of Alcohol and Drug Abuse Patient Records regulations: The Federal rules restrict any use of the information to criminally investigate or prosecute any alcohol or drug abuse patient.[facility]In the event this information is protected by the Federal Confidentiality of Alcohol and Drug Abuse Patient Records regulations: The Federal rules restrict any use of the information to criminally investigate or prosecute any alcohol or drug abuse patient.[facility] HospitalIn the event this information is protected by the Federal Confidentiality of Alcohol and Drug Abuse Patient Records regulations: The Federal rules restrict any use of the information to criminally investigate or prosecute any alcohol or drug abuse patient.[facility] HospitalIn the event this information is protected by the Federal Confidentiality of Alcohol and Drug Abuse Patient Records regulations: The Federal rules restrict any use of the information to criminally investigate or prosecute any alcohol or drug abuse patient.[facility] HospitalIn the event this information is protected by the Federal Confidentiality of Alcohol and Drug Abuse Patient Records regulations: The Federal rules restrict any use of the information to criminally investigate or prosecute any alcohol or drug abuse patient.[facility] HospitalIn the event this information is protected by the Federal Confidentiality of Alcohol and Drug Abuse Patient Records regulations: The Federal rules restrict any use of the information to criminally investigate or prosecute any alcohol or drug abuse patient.[facility] HospitalIn the event this information is protected by the Federal Confidentiality of Alcohol and Drug Abuse Patient Records regulations: The Federal rules restrict any use of the information to criminally investigate or prosecute any alcohol or drug abuse patient.[facility] HospitalIn the event this information is protected by the Federal Confidentiality of Alcohol and Drug Abuse Patient Records regulations: The Federal rules restrict any use of the information to criminally investigate or prosecute any alcohol or drug abuse patient.[facility] HospitalIn the event this information is protected by the Federal Confidentiality of Alcohol and Drug Abuse Patient Records regulations: The Federal rules restrict any use of the information to criminally investigate or prosecute any alcohol or drug abuse patient.[facility] HospitalIn the event this information is protected by the Federal Confidentiality of Alcohol and Drug Abuse Patient Records regulations: The Federal rules restrict any use of the information to criminally investigate or prosecute any alcohol or drug abuse patient.[facility] HospitalIn the event this information is protected by the Federal Confidentiality of Alcohol and Drug Abuse Patient Records regulations: The Federal rules restrict any use of the information to criminally investigate or prosecute any alcohol or drug abuse patient.[facility] HospitalIn the event this information is protected by the Federal Confidentiality of Alcohol and Drug Abuse Patient Records regulations: The Federal rules restrict any use of the information to criminally investigate or prosecute any alcohol or drug abuse patient.[facility] HospitalIn the event this information is protected by the Federal Confidentiality of Alcohol and Drug Abuse Patient Records regulations: The Federal rules restrict any use of the information to criminally investigate or prosecute any alcohol or drug abuse patient.[facility] HospitalIn the event this information is protected by the Federal Confidentiality of Alcohol and Drug Abuse Patient Records regulations: The Federal rules restrict any use of the information to criminally investigate or prosecute any alcohol or drug abuse patient.[facility] HospitalIn the event this information is protected by the Federal Confidentiality of Alcohol and Drug Abuse Patient Records regulations: The Federal rules restrict any use of the information to criminally investigate or prosecute any alcohol or drug abuse patient.[facility] HospitalIn the event this information is protected by the Federal Confidentiality of Alcohol and Drug Abuse Patient Records regulations: The Federal rules restrict any use of the information to criminally investigate or prosecute any alcohol or drug abuse patient.[facility] HospitalIn the event this information is protected by the Federal Confidentiality of Alcohol and Drug Abuse Patient Records regulations: The Federal rules restrict any use of the information to criminally investigate or prosecute any alcohol or drug abuse patient.[facility] HospitalIn the event this information is protected by the Federal Confidentiality of Alcohol and Drug Abuse Patient Records regulations: The Federal rules restrict any use of the information to criminally investigate or prosecute any alcohol or drug abuse patient.[facility] HospitalIn the event this information is protected by the Federal Confidentiality of Alcohol and Drug Abuse Patient Records regulations: The Federal rules restrict any use of the information to criminally investigate or prosecute any alcohol or drug abuse patient.[facility] HospitalIn the event this information is protected by the Federal Confidentiality of Alcohol and Drug Abuse Patient Records regulations: The Federal rules restrict any use of the information to criminally investigate or prosecute any alcohol or drug abuse patient.[facility] HospitalIn the event this information is protected by the Federal Confidentiality of Alcohol and Drug Abuse Patient Records regulations: The Federal rules restrict any use of the information to criminally investigate or prosecute any alcohol or drug abuse patient.[facility] HospitalIn the event this information is protected by the Federal Confidentiality of Alcohol and Drug Abuse Patient Records regulations: The Federal rules restrict any use of the information to criminally investigate or prosecute any alcohol or drug abuse patient.[facility] HospitalIn the event this information is protected by the Federal Confidentiality of Alcohol and Drug Abuse Patient Records regulations: The Federal rules restrict any use of the information to criminally investigate or prosecute any alcohol or drug abuse patient.[facility] HospitalIn the event this information is protected by the Federal Confidentiality of Alcohol and Drug Abuse Patient Records regulations: The Federal rules restrict any use of the information to criminally investigate or prosecute any alcohol or drug abuse patient.[facility] HospitalIn the event this information is protected by the Federal Confidentiality of Alcohol and Drug Abuse Patient Records regulations: The Federal rules restrict any use of the information to criminally investigate or prosecute any alcohol or drug abuse patient.[facility] HospitalIn the event this information is protected by the Federal Confidentiality of Alcohol and Drug Abuse Patient Records regulations: The Federal rules restrict any use of the information to criminally investigate or prosecute any alcohol or drug abuse patient.[facility] HospitalIn the event this information is protected by the Federal Confidentiality of Alcohol and Drug Abuse Patient Records regulations: The Federal rules restrict any use of the information to criminally investigate or prosecute any alcohol or drug abuse patient.[facility] HospitalIn the event this information is protected by the Federal Confidentiality of Alcohol and Drug Abuse Patient Records regulations: The Federal rules restrict any use of the information to criminally investigate or prosecute any alcohol or drug abuse patient.[facility] HospitalIn the event this information is protected by the Federal Confidentiality of Alcohol and Drug Abuse Patient Records regulations: The Federal rules restrict any use of the information to criminally investigate or prosecute any alcohol or drug abuse patient.[facility] HospitalIn the event this information is protected by the Federal Confidentiality of Alcohol and Drug Abuse Patient Records regulations: The Federal rules restrict any use of the information to criminally investigate or prosecute any alcohol or drug abuse patient.[facility] HospitalIn the event this information is protected by the Federal Confidentiality of Alcohol and Drug Abuse Patient Records regulations: The Federal rules restrict any use of the information to criminally investigate or prosecute any alcohol or drug abuse patient.[facility] HospitalIn the event this information is protected by the Federal Confidentiality of Alcohol and Drug Abuse Patient Records regulations: The Federal rules restrict any use of the information to criminally investigate or prosecute any alcohol or drug abuse patient.[facility] HospitalIn the event this information is protected by the Federal Confidentiality of Alcohol and Drug Abuse Patient Records regulations: The Federal rules restrict any use of the information to criminally investigate or prosecute any alcohol or drug abuse patient.[facility] HospitalIn the event this information is protected by the Federal Confidentiality of Alcohol and Drug Abuse Patient Records regulations: The Federal rules restrict any use of the information to criminally investigate or prosecute any alcohol or drug abuse patient.[facility] HospitalIn the event this information is protected by the Federal Confidentiality of Alcohol and Drug Abuse Patient Records regulations: The Federal rules restrict any use of the information to criminally investigate or prosecute any alcohol or drug abuse patient.[facility] HospitalIn the event this information is protected by the Federal Confidentiality of Alcohol and Drug Abuse Patient Records regulations: The Federal rules restrict any use of the information to criminally investigate or prosecute any alcohol or drug abuse patient.[facility] HospitalIn the event this information is protected by the Federal Confidentiality of Alcohol and Drug Abuse Patient Records regulations: The Federal rules restrict any use of the information to criminally investigate or prosecute any alcohol or drug abuse patient.[facility] HospitalIn the event this information is protected by the Federal Confidentiality of Alcohol and Drug Abuse Patient Records regulations: The Federal rules restrict any use of the information to criminally investigate or prosecute any alcohol or drug abuse patient.[facility] HospitalIn the event this information is protected by the Federal Confidentiality of Alcohol and Drug Abuse Patient Records regulations: The Federal rules restrict any use of the information to criminally investigate or prosecute any alcohol or drug abuse patient.[facility] HospitalIn the event this information is protected by the Federal Confidentiality of Alcohol and Drug Abuse Patient Records regulations: The Federal rules restrict any use of the information to criminally investigate or prosecute any alcohol or drug abuse patient.[facility] HospitalIn the event this information is protected by the Federal Confidentiality of Alcohol and Drug Abuse Patient Records regulations: The Federal rules restrict any use of the information to criminally investigate or prosecute any alcohol or drug abuse patient.[facility] HospitalIn the event this information is protected by the Federal Confidentiality of Alcohol and Drug Abuse Patient Records regulations: The Federal rules restrict any use of the information to criminally investigate or prosecute any alcohol or drug abuse patient.[facility] HospitalIn the event this information is protected by the Federal Confidentiality of Alcohol and Drug Abuse Patient Records regulations: The Federal rules restrict any use of the information to criminally investigate or prosecute any alcohol or drug abuse patient.[facility] HospitalIn the event this information is protected by the Federal Confidentiality of Alcohol and Drug Abuse Patient Records regulations: The Federal rules restrict any use of the information to criminally investigate or prosecute any alcohol or drug abuse patient.[facility] HospitalIn the event this information is protected by the Federal Confidentiality of Alcohol and Drug Abuse Patient Records regulations: The Federal rules restrict any use of the information to criminally investigate or prosecute any alcohol or drug abuse patient.[facility]In the event this information is protected by the Federal Confidentiality of Alcohol and Drug Abuse Patient Records regulations: The Federal rules restrict any use of the information to criminally investigate or prosecute any alcohol or drug abuse patient.[facility] HospitalIn the event this information is protected by the Federal Confidentiality of Alcohol and Drug Abuse Patient Records regulations: The Federal rules restrict any use of the information to criminally investigate or prosecute any alcohol or drug abuse patient.[facility] HospitalIn the event this information is protected by the Federal Confidentiality of Alcohol and Drug Abuse Patient Records regulations: The Federal rules restrict any use of the information to criminally investigate or prosecute any alcohol or drug abuse patient.[facility] HospitalIn the event this information is protected by the Federal Confidentiality of Alcohol and Drug Abuse Patient Records regulations: The Federal rules restrict any use of the information to criminally investigate or prosecute any alcohol or drug abuse patient.[facility] HospitalIn the event this information is protected by the Federal Confidentiality of Alcohol and Drug Abuse Patient Records regulations: The Federal rules restrict any use of the information to criminally investigate or prosecute any alcohol or drug abuse patient.[facility] HospitalIn the event this information is protected by the Federal Confidentiality of Alcohol and Drug Abuse Patient Records regulations: The Federal rules restrict any use of the information to criminally investigate or prosecute any alcohol or drug abuse patient.[facility]In the event this information is protected by the Federal Confidentiality of Alcohol and Drug Abuse Patient Records regulations: The Federal rules restrict any use of the information to criminally investigate or prosecute any alcohol or drug abuse patient.[facility] HospitalIn the event this information is protected by the Federal Confidentiality of Alcohol and Drug Abuse Patient Records regulations: The Federal rules restrict any use of the information to criminally investigate or prosecute any alcohol or drug abuse patient.[facility] HospitalIn the event this information is protected by the Federal Confidentiality of Alcohol and Drug Abuse Patient Records regulations: The Federal rules restrict any use of the information to criminally investigate or prosecute any alcohol or drug abuse patient.[facility] HospitalIn the event this information is protected by the Federal Confidentiality of Alcohol and Drug Abuse Patient Records regulations: The Federal rules restrict any use of the information to criminally investigate or prosecute any alcohol or drug abuse patient.[facility]In the event this information is protected by the Federal Confidentiality of Alcohol and Drug Abuse Patient Records regulations: The Federal rules restrict any use of the information to criminally investigate or prosecute any alcohol or drug abuse patient.[facility]In the event this information is protected by the Federal Confidentiality of Alcohol and Drug Abuse Patient Records regulations: The Federal rules restrict any use of the information to criminally investigate or prosecute any alcohol or drug abuse patient.[facility]In the event this information is protected by the Federal Confidentiality of Alcohol and Drug Abuse Patient Records regulations: The Federal rules restrict any use of the information to criminally investigate or prosecute any alcohol or drug abuse patient.[facility]In the event this information is protected by the Federal Confidentiality of Alcohol and Drug Abuse Patient Records regulations: The Federal rules restrict any use of the information to criminally investigate or prosecute any alcohol or drug abuse patient.[facility] HospitalIn the event this information is protected by the Federal Confidentiality of Alcohol and Drug Abuse Patient Records regulations: The Federal rules restrict any use of the information to criminally investigate or prosecute any alcohol or drug abuse patient.[facility]In the event this information is protected by the Federal Confidentiality of Alcohol and Drug Abuse Patient Records regulations: The Federal rules restrict any use of the information to criminally investigate or prosecute any alcohol or drug abuse patient.[facility]In the event this information is protected by the Federal Confidentiality of Alcohol and Drug Abuse Patient Records regulations: The Federal rules restrict any use of the information to criminally investigate or prosecute any alcohol or drug abuse patient.[facility]In the event this information is protected by the Federal Confidentiality of Alcohol and Drug Abuse Patient Records regulations: The Federal rules restrict any use of the information to criminally investigate or prosecute any alcohol or drug abuse patient.[facility]In the event this information is protected by the Federal Confidentiality of Alcohol and Drug Abuse Patient Records regulations: The Federal rules restrict any use of the information to criminally investigate or prosecute any alcohol or drug abuse patient.[facility]In the event this information is protected by the Federal Confidentiality of Alcohol and Drug Abuse Patient Records regulations: The Federal rules restrict any use of the information to criminally investigate or prosecute any alcohol or drug abuse patient.[facility]In the event this information is protected by the Federal Confidentiality of Alcohol and Drug Abuse Patient Records regulations: The Federal rules restrict any use of the information to criminally investigate or prosecute any alcohol or drug abuse patient.[facility]In the event this information is protected by the Federal Confidentiality of Alcohol and Drug Abuse Patient Records regulations: The Federal rules restrict any use of the information to criminally investigate or prosecute any alcohol or drug abuse patient.[facility]In the event this information is protected by the Federal Confidentiality of Alcohol and Drug Abuse Patient Records regulations: The Federal rules restrict any use of the information to criminally investigate or prosecute any alcohol or drug abuse patient.[facility]In the event this information is protected by the Federal Confidentiality of Alcohol and Drug Abuse Patient Records regulations: The Federal rules restrict any use of the information to criminally investigate or prosecute any alcohol or drug abuse patient.[facility]In the event this information is protected by the Federal Confidentiality of Alcohol and Drug Abuse Patient Records regulations: The Federal rules restrict any use of the information to criminally investigate or prosecute any alcohol or drug abuse patient.[facility]In the event this information is protected by the Federal Confidentiality of Alcohol and Drug Abuse Patient Records regulations: The Federal rules restrict any use of the information to criminally investigate or prosecute any alcohol or drug abuse patient.[facility]In the event this information is protected by the Federal Confidentiality of Alcohol and Drug Abuse Patient Records regulations: The Federal rules restrict any use of the information to criminally investigate or prosecute any alcohol or drug abuse patient.[facility]In the event this information is protected by the Federal Confidentiality of Alcohol and Drug Abuse Patient Records regulations: The Federal rules restrict any use of the information to criminally investigate or prosecute any alcohol or drug abuse patient.[facility]In the event this information is protected by the Federal Confidentiality of Alcohol and Drug Abuse Patient Records regulations: The Federal rules restrict any use of the information to criminally investigate or prosecute any alcohol or drug abuse patient.[facility]In the event this information is protected by the Federal Confidentiality of Alcohol and Drug Abuse Patient Records regulations: The Federal rules restrict any use of the information to criminally investigate or prosecute any alcohol or drug abuse patient.[facility]In the event this information is protected by the Federal Confidentiality of Alcohol and Drug Abuse Patient Records regulations: The Federal rules restrict any use of the information to criminally investigate or prosecute any alcohol or drug abuse patient.[facility]In the event this information is protected by the Federal Confidentiality of Alcohol and Drug Abuse Patient Records regulations: The Federal rules restrict any use of the information to criminally investigate or prosecute any alcohol or drug abuse patient.[facility]In the event this information is protected by the Federal Confidentiality of Alcohol and Drug Abuse Patient Records regulations: The Federal rules restrict any use of the information to criminally investigate or prosecute any alcohol or drug abuse patient.[facility]In the event this information is protected by the Federal Confidentiality of Alcohol and Drug Abuse Patient Records regulations: The Federal rules restrict any use of the information to criminally investigate or prosecute any alcohol or drug abuse patient.[facility]In the event this information is protected by the Federal Confidentiality of Alcohol and Drug Abuse Patient Records regulations: The Federal rules restrict any use of the information to criminally investigate or prosecute any alcohol or drug abuse patient.[facility]In the event this information is protected by the Federal Confidentiality of Alcohol and Drug Abuse Patient Records regulations: The Federal rules restrict any use of the information to criminally investigate or prosecute any alcohol or drug abuse patient.[facility]In the event this information is protected by the Federal Confidentiality of Alcohol and Drug Abuse Patient Records regulations: The Federal rules restrict any use of the information to criminally investigate or prosecute any alcohol or drug abuse patient.[facility]In the event this information is protected by the Federal Confidentiality of Alcohol and Drug Abuse Patient Records regulations: The Federal rules restrict any use of the information to criminally investigate or prosecute any alcohol or drug abuse patient.[facility]In the event this information is protected by the Federal Confidentiality of Alcohol and Drug Abuse Patient Records regulations: The Federal rules restrict any use of the information to criminally investigate or prosecute any alcohol or drug abuse patient.[facility]In the event this information is protected by the Federal Confidentiality of Alcohol and Drug Abuse Patient Records regulations: The Federal rules restrict any use of the information to criminally investigate or prosecute any alcohol or drug abuse patient.[facility] HospitalIn the event this information is protected by the Federal Confidentiality of Alcohol and Drug Abuse Patient Records regulations: The Federal rules restrict any use of the information to criminally investigate or prosecute any alcohol or drug abuse patient.[facility] HospitalIn the event this information is protected by the Federal Confidentiality of Alcohol and Drug Abuse Patient Records regulations: The Federal rules restrict any use of the information to criminally investigate or prosecute any alcohol or drug abuse patient.[facility] HospitalIn the event this information is protected by the Federal Confidentiality of Alcohol and Drug Abuse Patient Records regulations: The Federal rules restrict any use of the information to criminally investigate or prosecute any alcohol or drug abuse patient.[facility] HospitalIn the event this information is protected by the Federal Confidentiality of Alcohol and Drug Abuse Patient Records regulations: The Federal rules restrict any use of the information to criminally investigate or prosecute any alcohol or drug abuse patient.[facility] HospitalIn the event this information is protected by the Federal Confidentiality of Alcohol and Drug Abuse Patient Records regulations: The Federal rules restrict any use of the information to criminally investigate or prosecute any alcohol or drug abuse patient.[facility] HospitalIn the event this information is protected by the Federal Confidentiality of Alcohol and Drug Abuse Patient Records regulations: The Federal rules restrict any use of the information to criminally investigate or prosecute any alcohol or drug abuse patient.[facility] HospitalIn the event this information is protected by the Federal Confidentiality of Alcohol and Drug Abuse Patient Records regulations: The Federal rules restrict any use of the information to criminally investigate or prosecute any alcohol or drug abuse patient.[facility] HospitalIn the event this information is protected by the Federal Confidentiality of Alcohol and Drug Abuse Patient Records regulations: The Federal rules restrict any use of the information to criminally investigate or prosecute any alcohol or drug abuse patient.[facility] HospitalIn the event this information is protected by the Federal Confidentiality of Alcohol and Drug Abuse Patient Records regulations: The Federal rules restrict any use of the information to criminally investigate or prosecute any alcohol or drug abuse patient.[facility] HospitalIn the event this information is protected by the Federal Confidentiality of Alcohol and Drug Abuse Patient Records regulations: The Federal rules restrict any use of the information to criminally investigate or prosecute any alcohol or drug abuse patient.[facility] HospitalIn the event this information is protected by the Federal Confidentiality of Alcohol and Drug Abuse Patient Records regulations: The Federal rules restrict any use of the information to criminally investigate or prosecute any alcohol or drug abuse patient.[facility] HospitalIn the event this information is protected by the Federal Confidentiality of Alcohol and Drug Abuse Patient Records regulations: The Federal rules restrict any use of the information to criminally investigate or prosecute any alcohol or drug abuse patient.[facility] HospitalIn the event this information is protected by the Federal Confidentiality of Alcohol and Drug Abuse Patient Records regulations: The Federal rules restrict any use of the information to criminally investigate or prosecute any alcohol or drug abuse patient.[facility] HospitalIn the event this information is protected by the Federal Confidentiality of Alcohol and Drug Abuse Patient Records regulations: The Federal rules restrict any use of the information to criminally investigate or prosecute any alcohol or drug abuse patient.[facility] HospitalIn the event this information is protected by the Federal Confidentiality of Alcohol and Drug Abuse Patient Records regulations: The Federal rules restrict any use of the information to criminally investigate or prosecute any alcohol or drug abuse patient.[facility] HospitalIn the event this information is protected by the Federal Confidentiality of Alcohol and Drug Abuse Patient Records regulations: The Federal rules restrict any use of the information to criminally investigate or prosecute any alcohol or drug abuse patient.[facility] HospitalIn the event this information is protected by the Federal Confidentiality of Alcohol and Drug Abuse Patient Records regulations: The Federal rules restrict any use of the information to criminally investigate or prosecute any alcohol or drug abuse patient.[facility] HospitalIn the event this information is protected by the Federal Confidentiality of Alcohol and Drug Abuse Patient Records regulations: The Federal rules restrict any use of the information to criminally investigate or prosecute any alcohol or drug abuse patient.[facility] HospitalIn the event this information is protected by the Federal Confidentiality of Alcohol and Drug Abuse Patient Records regulations: The Federal rules restrict any use of the information to criminally investigate or prosecute any alcohol or drug abuse patient.[facility] HospitalIn the event this information is protected by the Federal Confidentiality of Alcohol and Drug Abuse Patient Records regulations: The Federal rules restrict any use of the information to criminally investigate or prosecute any alcohol or drug abuse patient.[facility] HospitalIn the event this information is protected by the Federal Confidentiality of Alcohol and Drug Abuse Patient Records regulations: The Federal rules restrict any use of the information to criminally investigate or prosecute any alcohol or drug abuse patient.[facility] HospitalIn the event this information is protected by the Federal Confidentiality of Alcohol and Drug Abuse Patient Records regulations: The Federal rules restrict any use of the information to criminally investigate or prosecute any alcohol or drug abuse patient.[facility] HospitalIn the event this information is protected by the Federal Confidentiality of Alcohol and Drug Abuse Patient Records regulations: The Federal rules restrict any use of the information to criminally investigate or prosecute any alcohol or drug abuse patient.[facility] HospitalIn the event this information is protected by the Federal Confidentiality of Alcohol and Drug Abuse Patient Records regulations: The Federal rules restrict any use of the information to criminally investigate or prosecute any alcohol or drug abuse patient.[facility] HospitalIn the event this information is protected by the Federal Confidentiality of Alcohol and Drug Abuse Patient Records regulations: The Federal rules restrict any use of the information to criminally investigate or prosecute any alcohol or drug abuse patient.[facility] HospitalIn the event this information is protected by the Federal Confidentiality of Alcohol and Drug Abuse Patient Records regulations: The Federal rules restrict any use of the information to criminally investigate or prosecute any alcohol or drug abuse patient.[facility] HospitalIn the event this information is protected by the Federal Confidentiality of Alcohol and Drug Abuse Patient Records regulations: The Federal rules restrict any use of the information to criminally investigate or prosecute any alcohol or drug abuse patient.[facility] HospitalIn the event this information is protected by the Federal Confidentiality of Alcohol and Drug Abuse Patient Records regulations: The Federal rules restrict any use of the information to criminally investigate or prosecute any alcohol or drug abuse patient.[facility] HospitalIn the event this information is protected by the Federal Confidentiality of Alcohol and Drug Abuse Patient Records regulations: The Federal rules restrict any use of the information to criminally investigate or prosecute any alcohol or drug abuse patient.[facility] HospitalIn the event this information is protected by the Federal Confidentiality of Alcohol and Drug Abuse Patient Records regulations: The Federal rules restrict any use of the information to criminally investigate or prosecute any alcohol or drug abuse patient.[facility] Reason for Visit (unrecogniz ed section and content) Reason Comments Consult Specialty Diagnoses / Procedures Referred By Adenike ferguson Referred To Contact General Surgery Diagnoses Diverticulitis Bloody stools Procedures CONSULT TO GENERAL SURGERY OFFICE/OUTPATIENT NEW HIGH MDM 60 MINUTES Brian Ahmadi, KALEB.[employer] MEDIA SPECIALIST [address] [place] [address] Referral ID Status Reason Start Date Expiration Date V isits Requested Visits Authorized [id number] Closed PCP Requested Referral 04/30/2024 04/30/2025 1 [...] Contact Diagnoses Stroke Level A Head Bleed/Stroke [facility] [address] [place] [address] [facility] [address] [place] [address] Referral ID Status Reason Start Date Expiration Date Visits Re quested Visits Authorized [id number] 1 1 Reason Comments Patient Update FYI-No [...] WITH PELVIS MINIMUM 5 VIEWS Gerardo Lopez, JOSE DC [address] [address] [place] [address] Referral ID Status Reason Start Date Expiration Date V isits Requested Visits Authorized Closed Auto-Generate d Referral 03/15/2021 04/14/2022 1 1 Reason Comments ER F/U [facility] ER diverticuliti s 04/23/2024 Reason Onset [...] Comments Follow Up 3 month Reason Comments [facility] ER f/u Reason Comments Hospital Follow [...] Care Teams (unrecognized sec tion and content) Family Court Registrar Relationship Specialty Start Date End Date Mathew Cobian MD [address] [place] [address] PCP - General 09/22/[address]istrar Relationship Specialty Start Date End Date Mathew Cobian MD [address] [place] [address] PCP - General 09/22/[address]istrar Relationship Specialty Start Date End Date Mathew Cobian MD [address] [place] [address] PCP - General 09/22/[address]istrar Relationship Specialty Start Date End Date Mathew Cobian MD [address] [place] [address] PCP - General 09/22/[address]istrar Relationship Specialty Start Date End Date Mathew Cobian MD [address] [place] [address] PCP - General 09/22/[address]istrar Relationship Specialty Start Date End Date Mathew Cobian MD [address] [place] [address] PCP - General 09/22/[address] Registrar Relationship Specialty Start Date End Date Mathew Cobian MD [address] [place] [address] PCP - General 09/22/[address]istrar Relationship Specialty Start Date End Date Mathew Cobian MD [address] [place] [address], [place] [address] PCP - General 09/22/[address]istrar Relationship Specialty Start Date End Date Mathew Cobian MD [facility] [place] [address] PCP - General 09/22/[address] Registrar Relationship Specialty Start Date End Date Mathew Cobian MD [address] [place] [address] PCP - General 09/22/[address] Registrar Relationship Specialty Start Date End Date Mathew Cobian MD [address] [place] [address] PCP - General 09/22/[address] Registrar Relationship Specialty Start Date End Date Mathew Cobian MD [address] [place] [address] PCP - General 09/22/[address] Registrar Relationship Specialty Start Date End Date Mathew Cobian MD [address] [place] [address] PCP - General 09/22/[address] Registrar Relationship Specialty Start Date End Date Mathew Cobian MD [address] [place] [address] PCP - General 09/22/[address]istrar Relationship Specialty Start Date End Date Mathew Cobian MD [address] [place] [address] PCP - General 09/22/08 Team Status: Active Member Role Status Dates Dr. Mathew Cobian MD Family Provider Active Dr. Mathew Cobian MD Primary Care Provider Active Team Status: Inactive Member Role Status Dates Dr. Mathew Cobian MD Primary Care Pr ovider, Attending Provider, Referring Provider Active Family Court Registrar Relationship Specialty Start Date End Date Mathew Cobian MD [address] [place] [address] PCP - General 09/22/[address]istrar Relationship Specialty Start Date End Date Mathew Cobian MD [address] [place] [address] PCP - General 09/22/[address]istrar Relationship Specialty Start Date End Date Mathew Cobian MD [address] [place] [address] PCP - General 09/22/[address] Registrar Relationship Specialty Start Date End Date Mathew Cobian MD [address] [place] [address] PCP - General 09/22/[address] Registrar Relationship Specialty Start Date End Date Mathew Cobian MD [address] [place] [address] PCP - General 09/22/[address]istrar Relationship Specialty Start Date End Date Mathew Cobian MD [address] [place], [place] [id number] PCP - General 09/22/[address] Registrar Relationship Specialty Start Date End Date Mathew Cobian MD [address] [place] [address] PCP - General 09/22/[address]istrar Relationship Specialty Start Date End Date Mathew Cobian MD [address] [place] [address] PCP - General 09/22/[address] Registrar Relationship Specialty Start Date End Date Mathew Cobian MD [address] [place] [address] PCP - General 09/22/[address] Registrar Relationship Specialty Start Date End Date Mathew Cobian MD [address] [place] [id number] PCP - General Family Medicine 09/26/[address] Relationship Specialty Start Date End Date Mathew Cobian MD [address] [place], [place] [id number] PCP - General 09/22/[address] Registrar Relationship Specialty Start Date End Date Mathew Cobian MD [address] [place] [address] PCP - General 09/22/[address] Registrar Relationship Specialty Start Date End Date Mathew Cobian MD [address] [place] [address] PCP - General 09/22/[address] Registrar Relationship Specialty Start Date End Date Mahtew Cobian MD [address] [place] [address] PCP - General 09/22/[address] Registrar Relationship Specialty Start Date End Date Mathew Cobian MD [address] [place] [address] PCP - General 09/22/[address]istrar Relationship Specialty Start Date End Date Mathew Cobian MD [address] [place] [address] PCP - General 09/22/[address] Registrar Relationship Specialty Start Date End Date Mathew Cobian MD [address] [place] [address] PCP - General 09/22/[address] Registrar Relationship Specialty Start Date End Date Mathew Cobian MD [address] [place] [address] PCP - General 09/22/[address] Registrar Relationship Specialty Start Date End Date Mathew Cobian MD [address] [place] [address] PCP - General 09/22/[address] Registrar Relationship Specialty Start Date End Date Mathew Cobian MD [address] [place] [address] PCP - General 09/22/[address] Registrar Relationship Specialty Start Date End Date Mathew Cobian MD [address] [place] [address] PCP - General 09/22/[address] Registrar Relationship Specialty Start Date End Date Mathew Cobian MD [address] [place] [address] PCP - General 09/22/[address] Registrar Relationship Specialty Start Date End Date Mathew Cobian MD [address] [place] [address] PCP - General 09/22/[address] Registrar Relationship Specialty Start Date End Date Mathew Cobian MD [address] [place] [address] PCP - General 09/22/[address] Registrar Relationship Specialty Start Date End Date Mathew Cobian MD [address] [place] [address] PCP - General 09/22/[address]istrar Relationship Specialty Start Date End Date Mathew Cobian MD [address] [place] [address] PCP - General 09/22/08 Sp Dahl RN [address] [place] [address] Primary Care Etl Manager 05/14/24 05/14/[address] Registrar Relationship Specialty Start Date End Date Mathew Cobian MD [address] [place] [address] PCP - General 09/22/[address] Relationship Specialty Start Date End Date Mathew Cobian MD [address] [place] [address] PCP - General 09/22/08 yGpsy Ayala APRN.CNP [address] [place] [address] [facility] 06/[facility]/24 Brian Ahmadi APRN.[employer] MEDIA SPECIALIST [address] [place] [address] [facility] 07/09/[address] Relationship Specialty Start Date End Date Mathew Cobian MD [address] [place] [address] PCP - General 09/22/08 Gypsy Ayala APRN.[employer] MEDIA SPECIALIST [address] [place] [address] [facility] 06/30/24 Brian Ahmadi APRN.[employer] MEDIA SPECIALIST [address] [place] [address] [facility] 07/09/[address]istrar Relationship Specialty Start Date End Date Mathew Cobian MD [address] [place] [address] PCP - General 09/22/08 Gypsy Ayala APRN.[employer] MEDIA SPECIALIST [address] [place] [address] [facility] 06/30/24 Brian Ahmadi APRN.HIGH S[employer]OL [employer]RARY MEDIA SPECIALIST [address] [place] [address] [facility] 07/09/[address]ist[address] Relationship Specialty Start Date End Date Mathew Cobian MD [address] [place] [address] PCP - General 09/22/08 Gypsy Ayala APRN.[employer] MEDIA SPECIALIST [address] [place] [address] Welding Robot Operator [facility] 06/30/24 Brian Ahmadi APRN.[employer]IGH [employer]OL [employer]RARY MEDIA SPECIALIST [address] [place] [address] Welding Robot Operator [facility] 07/09/[address] Relationship Specialty Start Date End Date Mathew Cobian MD [address] [place] [address] PCP - General 09/22/08 Gypsy Ayala APRN.[employer] MEDIA SPECIALIST [address] [place] [address] Welding Robot Operator [facility] 06/30/24 Brian Ahmadi APRN.HIGH SCHOOL LIBRARY MEDIA SPECIALIST [address] [place] [address] Welding Robot Operator [facility] 07/09/[address]ist[address] Relationship Specialty Start Date End Date Mathew Cobian MD [address] [place] [address] PCP - General 09/22/08 Gypsy Ayala APRN.HIGH SCHOOL [employer]RARY MEDIA SPECIALIST [address] [place] [address] Welding Robot Operator [facility] 06/30/24 Brian Ahmadi APRN.HIGH [employer]CHOOL [employer]RARY MEDIA SPECIALIST [address] [place] [address] Welding Robot Operator [facility] 07/09/[address] Relationship Specialty Start Date End Date Mathew Cobian MD [address] [place] [address] PCP - General 09/22/08 Gypsy Ayala APRN.HIGH [employer]OL LIBRARY MEDIA SPECIALIST [address] [place] [address] Welding Robot Operator [facility] 06/30/24 Brian Ahmadi APRN.HIGH SCHOOL LIBRARY MEDIA SPECIALIST [address] [place] [address] [facility] 07/09/[address] Relationship Specialty Start Date End Date Mathew Cobian MD [address] [place] [address] PCP - General 09/22/08 Gypsy Ayala APRN.HIGH [employer]CHOOL LIBRARY MEDIA SPECIALIST [address] [place] [address] Welding Robot Operator [facility] 06/30/24 Brian Ahmadi APRN.HIGH [employer]CHOOL LIBRARY MEDIA SPECIALIST [address] [place] [address] [facility] [place] 07/09/[address] Relationship Specialty Start Date End Date Mathew Cobian MD [address] [place] [address] PCP - General 09/22/08 Gypsy Ayala APRN.HIGH [employer]OL LIBRARY MEDIA SPECIALIST [address] [place] [address] [facility] [place] 06/30/24 Brian Ahmadi APRN.HIGH SCHOOL LIBRARY MEDIA SPECIALIST [address] [place] [address] [facility] 07/09/[address] Relationship Specialty Start Date End Date Mathew Cobian MD [address] [place] [address] PCP - General 09/22/08 Gypsy Ayala APRN.HIGH [employer]CHOOL LIBRARY MEDIA SPECIALIST [address] [place] [address] [facility] 06/30/24 Brian Ahmadi APRN.HIGH SCHOOL LIBRARY MEDIA SPECIALIST [address] [place] [address] [facility] 07/09/[address] Relationship Specialty Start Date End Date Mathew Cobian MD [address] [place] [address] PCP - General 09/22/08 Gypsy Ayala RETAIL SALES SPECIALIST.[employer]RARY MEDIA SPECIALIST [address] [place] [address] [facility] 06/30/24 Brian Ahmadi APRN.HIGH SCHOOL LIBRARY MEDIA SPECIALIST [address] [place] [address] [facility] 07/09/[address]rar Relationship Specialty Start Date End Date Mathew Cobian MD [address] [place] [address] PCP - General 09/22/08 Gypsy Ayala APRN.HIGH SCHOOL LIBRARY MEDIA SPECIALIST [address] [place] [address] Welding Robot [facility]Unity[facility] 06/30/24 Brian Ahmadi APRN.HIGH SCHOOL LIBRARY MEDIA SPECIALIST [address] [place] [address] [facility] 07/09/24 Team Status: Active Member Role Status [...] 05, 2024 End: November 05, 2024 Salvatore Watknis MD Emergency Provider Active Star t: November 05, 2024 End: November 05, [address]rar Relationship Specialty Start Date End Date Mathew Cobian MD [address] [place] [address] PCP - General 09/22/08 Brian Ahmadi APRN.HIGH SCHOOL LIBRARY MEDIA SPECIALIST [address] [facility] [address] [facility] [place] 07/09/[address] Registrar Relationship Specialty Start Date End Date Mathew Cobian MD [address] [place] [address] PCP - General 09/22/08 Brian Ahmadi APRN.HIGH SCHOOL LIBRARY MEDIA SPECIALIST [address] [place] [address] [facility] 07/09/[address]istrar Relationship Specialty Start Date End Date Mathew Cobian MD [address] [place] [address] PCP - General 09/22/08 Brian Ahmadi APRN.HIGH [employer]OL LIBRARY MEDIA SPECIALIST [address] [place] [address] [facility] 07/09/[address] Relationship Specialty Start Date End Date Mathew Cobian MD [address] [place] [address] PCP - General 09/22/08 Brian Ahmadi APRN.HIGH [employer]OL LIBRARY MEDIA SPECIALIST [address] [place] [address] [facility] [place] 07/09/[address]rar Relationship Specialty Start Date End Date Mathew Cobian MD [address] [place] [address] PCP - General 09/22/08 Brian Ahmadi APRN.HIGH [employer]OL LIBRARY MEDIA SPECIALIST [address] [place] [address] [facility] [place] 07/09/[address]rar Relationship Specialty Start Date End Date Mathew Cobian MD [address] [place] [address] PCP - General 09/22/08 Brian Ahmadi APRN.HIGH [employer]OL LIBRARY MEDIA SPECIALIST [address] [place] [address] [facility] [place] 07/09/[address] Relationship Specialty Start Date End Date Mathew Cobian MD [address] [place] [address] PCP - General 09/22/08 Brian Ahmadi APRN.HIGH [employer]OL LIBRARY MEDIA SPECIALIST [address] [place] [address] Welding Robot Operator [facility] 07/09/24 Team Status: Active Member Role/Relationship Status [...] January 20, 2025 End: January 21, [address] Relationship Specialty Start Date End Date Mathew Cobian MD [address] [place] [address] PCP - General 09/22/08 Brian Ahmadi, RETAIL SALES SPECIALIST.[employer] MEDIA SPECIALIST [address] [place] [address] Welding Robot Operator [facility] 07/09/[address] Registrar Relationship Specialty Start Date End Date Mathew Cobian MD [address] [place] [address] PCP - General 09/22/08 Brian Ahmadi, KALEB.HIGH [employer]OL LIBR[employer] MEDIA SPECIALIST [address] [place] [address] Welding Robot Operator [facility] 07/09/[address]istrar Relationship Specialty Start Date End Date Mathew Cobian MD [address] [place] [address] PCP - General 09/22/08 Brian Ahmadi APRN.HIGH [employer]OL [employer] MEDIA SPECIALIST [address] [place] [address] [facility] 07/09/24 Team Status: Inactive Member Role/Relationship Status [...] January 29, 2025 End: January 29, [address] Relationship Specialty Start Date End Date Mathew Cobian MD [address] [place] [address] PCP - General 09/22/08 Brian Ahmadi APRN.HIGH [employer]OL [employer] MEDIA SPECIALIST [address] [place] [address] [facility] 07/09/[address] Registrar Relationship Specialty Start Date End Date Mathew Cobian MD [address] [place] [address] PCP - General 09/22/08 Brian Ahmadi APRN.HIGH [employer]OL LIBRARY MEDIA SPECIALIST [address] [place] [address] [facility] 07/09/[address] Registrar Relationship Specialty Start Date End Date Mathew Cobian MD [address] [place], [place] [address] PCP - General 09/22/08 Brian Ahmadi APRN.[employer] [address] [place], [place] [address] [facility] 07/09/24 Team Status: Inactive Member Role/Relationship [...] January 29, 2025 Dr. Jj Koch DO Attending Provider Active Start: January 29, 2025 End: January 29, 2025 Dr. Jj Koch DO Emergency Provider Active Start: January 29, 2025 End: January 29, 2025 Team Status: Inactive Member Role/Relationship Status Dates Dr. Mathew Cobian MD Primary Care Provider Active Start: April 06, 2025 End: April 07, 2025 Dr. Jj Koch DO Emergency Provider Active Start: April 06, 2025 End: April 07, 2025 Goals (unrecognized section and content) Goals may [...] dose on Mon09/27/23 at 0900, Until Discontinued 822 (Given - Provider: Ashlyn Romero RN) 0831 (Given - Provider: Ashlyn Romero RN) 08 (Given - Provider: Giselle Steele RN) cephALEXin [...] dose on Mon09/27/23 at 0900, Until Discontinued 821 (Given - Provider: Ashlyn Romero RN) 827 (Given - Provider: Ashlyn Romero RN) 837 (Given - Provider: Giselle Steele RN) Enoxaparin Sodium (LOVENOX) injection 40 mg (CANCELED) 40 mg, Subcutaneous, DAILY, First dose on Mon09/27/23 at 1100, Until Discontinued, Indications: DVT/PE prophylaxis 105 (Given - Provider: Ashlyn Romero RN) 829 (Given - Provider: Ashlyn Romero RN) Enoxaparin Sodium (LOVENOX) injection 40 mg(Linked Group 1) 40 mg, Subcutaneous, DAILY, First dose (after last modification) on Mon09/29/23 at 0900, Until Discontinued, Indications: DVT/PE prophylaxis 08 (Given - Provider: Giselle Steele RN) Gadopiclenol SOLN 1-25 mL (COMPLETED) 1-25 mL, Intravenous, ONCE, 1 dose, On Mon09/27/23 at 0145 0139 (Given - Provider: Afshan Esquivel) Levothyroxine (SYNTHROID) tablet 175 mcg (CANCELED) 175 mcg, Oral, DAILY, First dose on Mon09/27/23 at 0900, Until Discontinued 822 (Given - Provider: Ashlyn Romero RN) 828 (Given - Provider: Ashlyn Romero RN) Levothyroxine (SYNTHROID) tablet 175 mcg 175 mcg, Oral, DAILY BEFORE BREAKFAST, First dose (after last modification) on Mon09/29/23 at 0600, Until Discontinued 521 (Given - Provider: Khadijah Rahman, RN) lidocaine 4 % patch 1 patch 1 patch, Transdermal, Administer over 12 Hours, EVERY 24 HOURS, First dose on Mon09/26/23 at 2245, Until Discontinued, Apply to back . 224 (Not Given - Provider: Khadijah Rahman RN [...] RN) 0838 (Given - Provider: Giselle Steele, RN) Senna (SENOKOT) tablet 8.6 mg(Linked Group 2) 8.6 mg, Oral, DAILY, First dose on Mon09/27/23 at 0900, Until Discontinued 0820 (Given - Provider: Ashlyn Romero RN) 0829 (Given - Provider: Ashlyn Romero RN) 0840 (Not Given - Provider: Giselle Steele RN - Reason: Patient/family refused) Senna (SENOKOT) tablet 8.6 mg(Linked Group 2) 8.6 mg, Per NG tube, DAILY, First dose on Mon09/27/23 at 0900, Until Discontinued 0820 (See Alternative - Provider: Ashlyn Romero RN) 0829 (See Alternative - Provider: Ashlyn Romero RN) 0840 (See Alternative - Provider: Giselle Steele RN) PRN Medication Order 09/27/2023 09/28/2023 09/29/2023 [...] RN) 0522 (See Alternative - Provider: Khadijah Rahman, RN)0937 (See Alternative - Provider: Giselle Steele, RN) Acetaminophen (TYLENOL) tablet 325 mg(Linked Group [...] Rahman RN)0937 (See Alternative - Provider: Giselle Steele, RN) Acetaminophen (TYLENOL) tablet 650 mg(Linked Group [...] Khadijah Rahman RN)0937 (Given - Provider: Giselle Steele, RN) Acetaminophen (TYLENOL) tablet 650 mg(Linked Group [...] Rahman RN)0937 (See Alternative - Provider: Giselle Steele, RN) hydrALAZINE (APRESOLINE) injection 10 mg(Linked Group [...] Khadijah Rahman RN) 08 (Given - Provider: Aslhyn Romero RN)2153 (Given - Provider: Khadijah Rahman RN) Polyethylene glycol (MIRALAX) packet 17 g(Linked Group 8) 17 g, Per NG tube, DAILY NEEDED, Starting on Mon09/27/23 at 0000, Until Mon09/29/23 at 1617, Constipation If No Bowel Movement in 48 Hours 2037 (See Alternative - Provider: Khadijah Rahman RN) 828 (See Alternative - Provider: Ashlyn Romero RN)2153 [...] BE BASED ON THE PRIMARY CLINICAL RECORDS. [employer] provides no warranty or guarantee of the accuracy or completeness of information in this document.
--- NOTE | 2025-04-09 05:10 | ED.VIS.DYS ---
HPI History of Present Illness Chief Complaint: Shortness of Breath Narrative Narrative: 59-year-old male past medical history of anxiety obstructive sleep apnea presents with shortness of breath and lightheadedness that began around midnight, approximately 3 hours ago.? He relates history that he had his CPAP machine on.? He went to bed, and 3 times he awoke with feeling very short of breath and gasping for air.? He also feels very lightheadedness.? It began around the same time.? He states it does not feel like a panic attack because when he caught his breath he felt fine.? He woke at 3 separate times and became concerned.? He states he feels lightheaded and off balance.? No exacerbating or alleviating factors. [facility] Medical History Alcohol abuse Anxiety History of trigger finger Alcohol abuse Chronic pain Smoker CPAP (continuous positive airway pressure) dependence Sleep apnea Cerebral palsy Home Medications ?Medication ?Instructions ?Recorded ?Last Taken ?Type omeprazole 20 mg capsule,delayed 20 mg PO DAILY GERD 02/05/19 04/23/24 History release multivitamin 1 tab PO DAILY supplement 12/04/20 04/22/24 History acetaminophen 500 mg tablet 1,000 mg (2 x 500 mg) PO Q6H PRN 12/23/20 Unknown Rx PRN Pain Score 1-5 #0 tabs citalopram 40 mg tablet 40 mg PO DAILY #0 tabs 12/23/20 04/23/24 Rx lorazepam 1 mg tablet 1 mg PO Q8H PRN PRN Anxiety 02/27/22 04/22/24 History vitamin B complex 1 tab PO DAILY 02/27/22 04/22/24 History levothyroxine 150 mcg tablet 150 mcg PO DAILY 11/05/24 Unknown History Allergy/AdvReac Type Severity Reaction Status Date / Time No Known Allergies Allergy Verified 04/06/25 22:18 Family History Other Cancer Diabetes Surgical History History of tonsillectomy H/O hand surgery Social History household members: other details: Roommate who does not help him cook or clean. Smoking Status: Former smoker alcohol intake: current alcohol intake frequency: 3 or more drinks per day Alcohol type: hard liquor ROS ROS ED ROS Narrative Review of systems positive for 3 episodes of gasping for air, feeling short of breath.? No fevers or chills.? No nausea or vomiting.? Positive lightheadedness.? No vertiginous type symptoms. EXAM Physical Exam Narrative Exam Narrative: Afebrile.? Vital signs noted.? Nontoxic-appearing.? Cardiovascular examination reveals a regular rate and rhythm.? Lungs are clear to auscultation bilaterally.? No tachypnea at rest.? Speaking in full sentences.? Moving a good amount of air.? No distress.? Abdomen is soft and nontender.? Awake, alert, oriented. MDM MDM MDM Narrative Medical decision making narrative: Differential diagnosis includes but not limited to pneumonia versus pneumothorax versus obstructive sleep apnea versus CHF versus undiagnosed COPD.? Patient does not have history of CHF or COPD but he does have sleep apnea.? EKG was obtained and interpreted by myself independently as normal sinus rhythm at 65 bpm without ectopy or acute ST changes.? No STEMI.? I doubt ACS as a cause of his reported episodes of shortness of breath.? Orthostatics are negative as reported by RN. I reviewed his laboratory work and CBC is grossly normal with a normal white count of 9.1, hemoglobin normal at 15.0 with hematocrit 43.9, platelet count normal at 247.? BMP is remarkable for normal sodium of 133, chloride normal at 96, potassium normal at 3.8 and glucose 109.? Bicarb slightly low at 21.2 which I think may be secondary to slight hyperventilation.? BNP is normal at 92 so I doubt CHF. I am unable to see the imaging on PACS of the chest x-ray. Hence, I am unable to individually interpret it. I did discuss the results with the radiologist and there is no acute process, no pneumonia, no pneumothorax. There may be slight atelectasis. There was delay in this reading. Upon repeat examination, patient appeared mildly anxious concerning with his 3 episodes of shortness of breath. He told the RN he usually takes Ativan and feels he would benefit from a dose here as he usually takes Ativan 0.5 mg orally. He was administered this. Given his negative workup here in the emergency department I do feel that he can be discharged to follow-up with his primary care provider. He was told he may need outpatient pulmonary function test or referral to pulmonology. Disposition is discharged home in stable condition. History & Record Review Discussion w/independent historian: Patient Discharge Plan Triage Chief Complaint: Shortness of Breath ED Provider: Salvatore Watkins Dx/Rx/DC Orders Clinical Impression: Anxiety, Shortness of breath, Dyspnea, Obstructive sleep apnea Instructions: ED Anxiety Reaction, ED Dyspnea Prescriptions: No Action omeprazole 20 MG capsule 20 mg PO DAILY multivitamin Tablet 1 tab PO DAILY acetaminophen 500 mg Tablet 1,000 mg PO Q6H PRN PRN (Reason: Pain Score 1-5) Qty: 0 0RF citalopram 40 mg Tablet 40 mg PO DAILY Qty: 0 0RF vitamin B complex Tablet 1 tab PO DAILY lorazepam 1 mg tablet 1 mg PO Q8H PRN PRN (Reason: Anxiety) levothyroxine 150 mcg tablet 150 mcg PO DAILY Primary Care Provider: Sai Cobian Referrals: Sai Cobian MD [Primary Care Provider, Family Practice] - 3-5 Days if not improving Activity Restrictions/Additional Instructions: Return to the emergency department with new or worsening symptoms. Wear your CPAP as previously directed. Print Language: Greenlandic Disposition Disposition: Home, Self Care
[2025-04-09 05:15] LABS: Mucous, Urine 0 SEEN /hpf (<or=2+)
[2025-04-09 05:49] LABS: Color, Urine Yellow (Yellow)
[2025-04-09 05:50] LABS: Glucose, Dipstick NEGATIVE (Normal); Ketone-Dipstick 5 mg/dl (Negative); Leukocyte Esterase-Dipstick 25 /ul (Negative); Nitrite-Dipstick Negative (Negative); Occult Blood-Urine Negative /ul (Negative); Protein-Dipstick 30 mg/dl (Negative); Red Blood Cells-Urine 0-5 SEEN /hpf (0-5); Specific Gravity, Urine 1.005 (1.002-1.030); Squamous Epithelial Cells - UA 0-5 SEEN /hpf (0-5); Urine Bilirubin Dipstick Negative (Negative)
[2025-04-09 06:02] LABS: White Blood Count 9.1 K/mm3 (4.4-11.0)
[2025-04-09 06:03] LABS: Hematocrit 43.9 % (40-54); Hemoglobin 15.0 g/dL (13.0-16.5); Immature Granulocytes Count 0.030 X10^3/uL (0.0-0.0); Mean Corp Hgb Conc 34.2 g/dL (32-36); Mean Corpuscular Volume 89.6 fL (80-94); Mean Platelet Vol. 10.7 fl (6.2-12.0); Platelet Count 247 K/mm3 (150-450); RBC Distribution Width CV 14.6 % (11.6-14.6); RBC Distribution Width SD 47.9 fl (35.1-43.9); Red Blood Count 4.90 M/mm3 (4.6-6.2)
[2025-04-09 07:53] LABS: BUN 7 mg/dL (4-19); BUN/Creat Ratio 7.4 RATIO (10-20); Glucose 109 mg/dL (70-99)
[2025-04-09 07:54] LABS: Anion Gap 92 (5-15); Calcium,Total 9.4 mg/dL (7.6-11.0); Carbon Dioxide 21.2 mmol/L (21.0-32.0); Chloride 96 mmol/L (98-108); Potassium 3.8 mmol/L (3.3-5.1)
[2025-04-09 08:15] LABS: Pro- Brain NATRIURETIC PEPTIDE 92 pg/mL (<=900)
== END 2025-04-09 05:50 | disposition home or self-care (01) ==
PROVIDERS: Emergency Provider Emergency Medicine; PCP Family Medicine; Visit Provider Emergency Medicine
DX: F41.9 Anxiety disorder, unspecified (principal); G47.33 Obstructive sleep apnea (adult) (pediatric); Z87.891 Personal history of nicotine dependence; R06.02 Shortness of breath; Z99.89 Dependence on other enabling machines and devices; R42 Dizziness and giddiness
CPT/HCPCS: 36415; 71046; 80048; 81001; 83880; 85025; 93005; 99284; A4216